=== PATIENT | female | born 1950 | race Caucasian/White ===

== ENCOUNTER 2017-10-11 16:23 | Emergency (ER) | payer MEDICARE, MEDICAID, SELFPAY ==
[2017-10-11 16:23] VITALS: BP 116/50; PULSE 76; RESP 16; TEMP 36.4; O2SAT 98; BMI 34.5
--- NOTE | 2017-10-11 16:30 | EKG12_ITS ---
Test Reason : CP Blood Pressure : / mmHG Vent. Rate : 073 BPM Atrial Rate : 073 BPM P-R Int : 150 ms QRS Dur : 082 ms QT Int : 402 ms P-R-T Axes : 069 037 073 degrees QTc Int : 442 ms Normal sinus rhythm Normal ECG Confirmed by BANG MELVIN, ROSALIA ([id number]), assistant production editor [employer] ([id number]) on 10/12/2017 2:25:44 PM Referred By: Confirmed By:ROSALIA CUENCA MD
--- NOTE | 2017-10-11 16:52 | CT_ITS ---
STUDY: CTA CHEST REASON FOR EXAM: Female, 67 years old. Short of breath and chest pain possible aortic dissection RADIATION DOSAGE (If Supplied By Facility): CTDIvol = ( 12.62 ) mGy, DLP = ( 660.73 ) mGycm TECHNIQUE: The examination was performed with the intravenous administration of 100ML ml of Isovue 300 contrast material. Post-processing of the angiographic images was performed, with multiplanar reformation and 3D reconstruction. Individualized dose optimization techniques were used for this CT. COMPARISON: April 20, 2017 FINDINGS: Suboptimal enhancement of the main pulmonary artery and right and left pulmonary arteries. Normal enhancement of the bilateral peripheral pulmonary arteries. There is no definitive evidence for pulmonary embolus Mild atherosclerotic changes of the aorta without evidence for aneurysm. There is no demonstrated aortic dissection. Normal heart and pericardium. Normal mediastinum. Tiny calcified right hilar nodes. Normal visualized trachea and bronchi. There is calcified granuloma in the right upper lobe. There is subsegmental atelectasis in the left upper lobe Normal pleura. Normal chest wall structures. Dorsal spine demonstrates mild spondylosis Liver is enlarged and fatty infiltrated. There are tiny granulomatous calcifications in the spleen and liver. The subsegmental atelectasis in left upper lobe has increased slightly since prior exam CT/CTA Chest W/WO Contrast IMPRESSION: Mild subsegmental atelectasis in left upper lobe. Old granulomatous disease on the right No evidence for aortic aneurysm or dissection. Limited study of the pulmonary arteries due to suboptimal opacification without definitive evidence for pulmonary embolus Electronically Signed: Marco Chong MD at 17:54 EST , Service support ,
[2017-10-11 16:53] LABS: Absolute Lymphocyte Count 2.44 X10^3/ul (0.83-4.51); Basophil# 0.05 X10^3/uL; Basophil% 0.4 % (0-1); Eosinophil# 0.38 X10^3/uL; Eosinophils% 3.3 % (0-5); Hematocrit 42.6 % (37-47); Lymphocyte # 2.44 X10^3/ul (4.0); Mean Corp Hgb Conc 32.9 g/gl (32-36); Mean Corpuscular Hgb 29.5 pg (27.0-32.0); Mean Corpuscular Volume 89.7 fL (81-99); Mean Platelet Vol. 11.2 fl (6.2-12.0); Monocyte# 0.67 X10^3/uL; Monocyte% 5.8 % (0-10); Neutrophil # 8.04 X10^3/uL (2.7-7.7); Neutrophil % 69.2 % (47-70); Platelet Count 256 K/mm3 (150-450); RBC Distribution Width CV 12.1 % (11.6-14.6); RBC Distribution Width SD 39.2 fl (35.1-43.9); Red Blood Count 4.75 M/mm3 (4.2-5.4); White Blood Count 11.6 K/mm3 (4.4-11.0)
[2017-10-11 16:55] LABS: POSITIVE COUNT NO; POSITIVE DIFFERENTIAL NO; POSITIVE MORPHOLOGY NO
--- NOTE | 2017-10-11 16:59 | ED.VISSUMM ---
- ER Visit Summary Date of Service: 10/11/17 Chief Complaint: Chest pain History of Present Illness: The patient is a [address] 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 Nuno. She reports today while she was making coleslaw, which is atypical activity for her, she began having upper back pain. She reports that she went and laid down in bed and used oxygen and that her pain resolved. However, at the same time she developed right arm pain that was 6 out of 10 at worst and is remained 3 out of 10 since then. She states that she went outside to smoke approximately 2 hours ago developed a substernal chest pain that she described as sharp. It lasted approximately 5 minutes. It was 5 out of 10 at worst. She is pain-free currently. It was worsened by nothing and relieved by nothing. She reports that she was very short of breath during this episode. She denies any nausea, vomiting, or diaphoresis. States that she has never had anything like this before. Physical Examination: Vitals: Stable. Afebrile. General: Well-nourished and well-developed. Head: Normocephalic atraumatic. Neck: Supple, no lymphadenopathy. No JVD. Nontender. Cardiovascular: Regular rate and rhythm. No murmurs. Respiratory: No respiratory distress. Clear to auscultation bilaterally. Greatly decreased air movement. She has mild tenderness palpation over her sternum that does not reproduce her pain. Abdominal: Soft, moderate epigastric tenderness to palpation, nondistended, normal bowel sounds. No guarding, rebound, or peritoneal signs. Back: Nontender. Extremities: Nontender, no edema. 2+ radial pulse bilaterally. Skin: Normal color, no rash. Neurologic: Alert and oriented ?3. Cranial nerves II through XII are intact. Normal strength and sensation. NIH scale is 0. Psych: Normal affect. Test Results: EKG is sinus at 73 with no acute changes. CT chest shows no dissection. Troponin is less than 0.02. CBC is more for white count 11.6. Chem-7 more for sodium 131 and glucose 379. Emergency Department Course and Treatment: Patient refused pain medications. Patient has had great relief of her pain after albuterol and Atrovent. She refused pain medications and steroids. States that this is similar to COPD exacerbations in the past. She would like to go home. Treatment Plan: Patient will be discharged with Zithromax. She is refused steroids at home. She does report that she has insulin at home to treat her high blood sugar. She is currently drinking a 32 ounce Coke from [employer]. She is instructed to return to the emergency department for any worsening symptoms. Follow-up her primary care physician in 3-5 days for another exam. Disposition: To home in improved and stable condition. Impression: 1. COPD exacerbation. 2. Atypical chest pain. 3. Type 2 diabetes mellitus. 4. Hyperglycemia. This note was generated with [employer] dictation software. It may contain incorrect words, spelling, and punctuation that were not noted in review of the chart prior to signing ED Disposition - Plan for ED Patient: Disposition: Home or Assisted Living Chief Complaint: Chest Pain Instructions: ED COPD Flare Prescriptions: Azithromycin [Zithromax] 250 mg PO DAILY #6 tablet Referrals: Mike Richard MD [Primary Care Provider] - 1-2 Days if not improving
[2017-10-11 17:04] LABS: Anion Gap 6 (5-15); BUN 7 mg/dL (7-18); BUN/Creat Ratio 8.2 RATIO (10-20); Calcium,Total 9.1 mg/dL (8.5-10.1); Chloride 95 mmol/L (98-107); Creatinine, Serum 0.85 mg/dL (0.55-1.02); EST Glomerular Filtration Rate 71 mL/min (>60); Est Glom Filt Rate - Afr Amer 86 mL/min (>60); Estimated Creatinine Clearance 51.49 ml/min; Glucose 379 mg/dL (74-106); Potassium 3.8 mmol/L (3.5-5.1); Sodium Level 131 mmol/L (136-145)
[2017-10-11] MEDS: Ipratropium/Albuterol Sulfate 3 ML AMPUL.NEB INHALATION (17:11)
[2017-10-11] MEDS: 0.9% Normal Saline 1,000 ML 999 ML IV (17:11)
[2017-10-11 17:29] VITALS: PULSE 72; RESP 24; O2SAT 99
[2017-10-11 17:35] VITALS: BP 145/70; PULSE 75; RESP 14; O2SAT 98
[2017-10-11] MEDS: Azithromycin 250 MG Tablet 500 MG PO (18:32)
[2017-10-11 18:38] VITALS: BP 147/89; PULSE 81; RESP 17; O2SAT 95
== END 2017-10-11 18:38 | disposition home or self-care (01) ==
PROVIDERS: Emergency Provider Emergency Medicine; Family Provider Family Medicine; PCP Family Medicine
DX: J44.1 Chronic obstructive pulmonary disease with (acute) exacerbation (principal); R07.89 Other chest pain; E11.65 Type 2 diabetes mellitus with hyperglycemia; F17.200 Nicotine dependence, unspecified, uncomplicated; Z91.11 Patient's noncompliance with dietary regimen; Z79.4 Long term (current) use of insulin; Z79.899 Other long term (current) drug therapy
CPT/HCPCS: 71275; 80048; 84484; 85025; 93005; 94640; 99285; J7030; Q9967; A4216

== ENCOUNTER → 2018-03-31 16:26 | Outpatient (CLI) | payer MEDICARE, SELFPAY | PROVIDERS: Family Provider Family Medicine; PCP Family Medicine; Visit Provider Family Medicine | DX: R06.00 Dyspnea, unspecified (principal) | CPT/HCPCS: 71046 ==

== ENCOUNTER 2018-05-06 22:52 | Emergency (ER) | payer MEDICARE, SELFPAY ==
[2018-05-06 22:57] VITALS: BP 144/72; PULSE 82; RESP 16; TEMP 36.8; O2SAT 97; BMI 38.6
--- NOTE | 2018-05-06 23:12 | EKG12_ITS ---
Test Reason : CP Blood Pressure : / mmHG Vent. Rate : 081 BPM Atrial Rate : 081 BPM P-R Int : 150 ms QRS Dur : 076 ms QT Int : 384 ms P-R-T Axes : 064 031 056 degrees QTc Int : 446 ms Sinus rhythm with occasional Premature ventricular complexes Low voltage QRS Borderline ECG Confirmed by RAMIREZ MELVIN, ARPITA ([id number]), editor managing newspaper [employer] ST[employer]WORTH ([id number]) on 05/09/2018 3:05:27 PM Referred By: JAZMÍN Confirmed By:ARPITA GUZMÁN MD
--- NOTE | 2018-05-06 23:12 | RAD_ITS ---
STUDY: X-RAY CHEST REASON FOR EXAM: Female, 67 years old. Chest pain TECHNIQUE: Single AP portable view of the chest. COMPARISON: 03.31.18 FINDINGS: The lungs are clear and expanded. There is no demonstrated pleural abnormality. Normal size heart. Normal mediastinum and wallace. Normal visualized pulmonary arteries. There is atherosclerotic tortuosity of the aortic arch and descending thoracic aorta. There are diffuse degenerative changes of the visualized thoracic spine. There is degenerative osteoarthritis of the bilateral shoulders. There is no demonstrated abnormality of the visualized soft tissue structures of the upper abdomen. RAD/Chest 1 View (Portable) IMPRESSION: There are no acute findings. Electronically Signed: Andrew Wheeler MD at 23:34 EDT , Service support ,
--- NOTE | 2018-05-06 23:14 | ED.DCSUM_ITS ---
- ER Visit Summary Date of Service: 05/06/18 Chief Complaint: Chest pain History of Present Illness: The patient is a 67 F recurrent chest pressure after supper 7 PM. Pain down left arm. Dyspnea. No nausea or diaphoresis. Has had intermittent symptoms for 3 days. Symptoms resolved prior to arrival by EMS. However states was given aspirin 324 mg along with one nitro which helped her symptoms. History of diabetes and tobacco. Denies hypertension or hypercholesterolemia but denies family history of MIs at a young age. Stress test was years ago. No history of heart cath. History of COPD 3 L oxygen at night. No recent illness. Currently symptoms resolved. Physical Examination: General: Alert and oriented ?3, no acute distress HEENT: Normocephalic, atraumatic. Moist mucosa membranes Neck: supple, nontender. Cardiovascular: Regular rate and rhythm, no murmurs Respiratory: Normal breath sounds, symmetric, no distress Abdomen: Soft, nontender, nondistended Extremities: Nontender, no edema, pulses intact ?4 Neuro: no focal neurological deficits. Test Results: EKG: Sinus rate of 81, no ST or T wave changes. PVC noted. White count 14. Chemistries normal. Troponin negative. Chest x-ray negative. Emergency Department Course and Treatment: Patient presents with chest pain, symptoms currently resolved. Workup negative, white count 14. Denies rash or urinary symptoms. Heart scores of 4. Discussed with patient initially with her risk factors for planned admission for further workup. However on reevaluation she remained symptom-free. She then states she would like to go home. Discussed risk including cardiac event and with the possibility. Patient understands. She is alert and oriented x3. Patient signed out AGAINST MEDICAL ADVICE. Discussed her return if any worsening symptoms otherwise follow-up with her PCP. Treatment Plan: [] Disposition: Discharge AMA Impression: 1. Acute chest pain This note was generated with [employer] dictation software. It may contain incorrect words, spelling, and punctuation that were not noted in review of the chart prior to signing ED Disposition - Plan for ED Patient: Disposition: Home or Assisted Living Chief Complaint: Chest Pain Diagnosis: Chest pain Instructions: ED Chest Pain Atypical Unkn Cause Referrals: Mike Richard MD [Primary Care Provider] - 1 Day Additional Instructions: You are recommended to stay in the hospital for further workup. He decided to sign out AGAINST MEDICAL ADVICE. Return if any worsening symptoms. Otherwise follow-up with your doctor.
[2018-05-06 23:28] VITALS: O2SAT 97
[2018-05-06 23:43] LABS: Absolute Lymphocyte Count 2.65 X10^3/ul (0.83-4.51); Absolute Neutrophil Count 10.9 X10^3/uL (2.0-7.7); Basophil# 0.08 X10^3/uL; Basophil% 0.5 % (0-1); Eosinophil# 0.31 X10^3/uL; Eosinophils% 2.1 % (0-5); Hematocrit 39.3 % (37-47); Hemoglobin 13.3 g/dl (12.0-15.0); Lymphocyte # 2.65 X10^3/ul (4.0); Mean Corp Hgb Conc 33.8 g/gl (32-36); Mean Corpuscular Hgb 29.8 pg (27.0-32.0); Mean Corpuscular Volume 87.9 fL (81-99); Monocyte# 0.76 X10^3/uL; Monocyte% 5.2 % (0-10); Neutrophil # 10.89 X10^3/uL (2.7-7.7); Neutrophil % 73.9 % (47-70); POSITIVE COUNT NO; POSITIVE DIFFERENTIAL NO; POSITIVE MORPHOLOGY NO; Platelet Count 259 K/mm3 (150-450); RBC Distribution Width CV 12.1 % (11.6-14.6); RBC Distribution Width SD 38.5 fl (35.1-43.9); Red Blood Count 4.47 M/mm3 (4.2-5.4); White Blood Count 14.7 K/mm3 (4.4-11.0)
[2018-05-06 23:59] LABS: Anion Gap 9 (5-15); BUN 6 mg/dL (7-18); BUN/Creat Ratio 5.6 RATIO (10-20); Calcium,Total 8.9 mg/dL (8.5-10.1); Chloride 96 mmol/L (98-107); Creatinine, Serum 1.07 mg/dL (0.55-1.02); EST Glomerular Filtration Rate 54 mL/min (>60); Est Glom Filt Rate - Afr Amer 66 mL/min (>60); Glucose 358 mg/dL (74-106); Potassium 3.8 mmol/L (3.5-5.1); Sodium Level 134 mmol/L (136-145)
[2018-05-07 00:28] VITALS: BP 140/97; PULSE 79; RESP 16; O2SAT 97
[2018-05-07 00:32] VITALS: BP 140/67; PULSE 73; RESP 16; O2SAT 97
== END 2018-05-07 00:39 | disposition left against medical advice (07) ==
PROVIDERS: Emergency Provider Emergency Medicine; Family Provider Family Medicine; PCP Family Medicine
DX: R07.9 Chest pain, unspecified (principal); E11.9 Type 2 diabetes mellitus without complications; J44.9 Chronic obstructive pulmonary disease, unspecified; K21.9 Gastro-esophageal reflux disease without esophagitis; K22.70 Barrett's esophagus without dysplasia; F32.9 Major depressive disorder, single episode, unspecified; F41.9 Anxiety disorder, unspecified; Z79.4 Long term (current) use of insulin; Z99.81 Dependence on supplemental oxygen; Z79.899 Other long term (current) drug therapy; Z53.21 Procedure and treatment not carried out due to patient leaving prior to being seen by health care provider
CPT/HCPCS: 71045; 80048; 84484; 85025; 93005; 99285; J7030; A4216

== ENCOUNTER → 2018-08-16 11:36 | Outpatient (CLI) | payer MEDICARE, SELFPAY ==
--- NOTE | 2018-08-16 11:37 | RAD_ITS ---
STUDY: X-RAY CHEST REASON FOR EXAM: Female, 68 years old. COPD exacerbation. TECHNIQUE: PA and lateral views of the chest. COMPARISON: Comparison is made with prior study dated May 06, 2018. FINDINGS: There is blunting of the right cost phrenic angle with lingular infiltrate. There is a shift of the heart and mediastinum towards the left side of the midline. Normal size heart. Normal mediastinum and wallace. Normal visualized pulmonary arteries. Normal visualized aortic arch and descending thoracic aorta. There are degenerative changes of the visualized thoracic spine. Normal visualized ribs, clavicles, and shoulders. There is no demonstrated abnormality of the visualized soft tissue structures of the upper abdomen. RAD/Chest PA and Lateral IMPRESSION: Blunting of the left gastric angle with underlying infiltration and/or atelectasis. Electronically Signed: Bruce Lubin MD at 12:27 EST Tel [phone], Service support ,
== END ==
PROVIDERS: Family Provider Family Medicine; PCP Family Medicine; Referring Provider Family Medicine; Visit Provider Family Medicine
DX: J44.1 Chronic obstructive pulmonary disease with (acute) exacerbation (principal)
CPT/HCPCS: 71046

== ENCOUNTER → 2018-09-15 17:00 | Outpatient (CLI) | payer MEDICARE, SELFPAY ==
--- NOTE | 2018-09-15 17:05 | RAD_ITS ---
STUDY: X-RAY - LEFT TIBIA AND FIBULA REASON FOR EXAM: Female, 68 years old. Fall, left leg pain TECHNIQUE: 3 view(s) of the tibia and fibula were obtained. COMPARISON: None. FINDINGS: Normal visualized tibia. Normal visualized fibula. Localized soft tissue swelling of the anterior lower leg just below the level of the insertion of the patellar tendon. RAD/Tibia & Fibula 2 Views IMPRESSION: 1. Proximal lower leg (anterior) soft tissue swelling/hematoma. No underlying fracture. Electronically Signed: Yaakov English MD at 21:16 EST , Service support ,
== END ==
PROVIDERS: Family Provider Family Medicine; PCP Family Medicine; Referring Provider Family Medicine; Visit Provider Family Medicine
DX: M79.605 Pain in left leg (principal)
CPT/HCPCS: 73590

== ENCOUNTER 2018-09-17 20:11 | Emergency (ER) | payer MEDICARE, SELFPAY ==
[2018-09-17 20:11] VITALS: BP 209/104; PULSE 81; RESP 16; TEMP 36.6; O2SAT 98; BMI 35.4
--- NOTE | 2018-09-17 20:18 | RAD_ITS ---
STUDY: X-RAY - LEFT KNEE REASON FOR EXAM: Female, 68 years old. Right-sided knee pain after falling 2 days ago. TECHNIQUE: 3 view(s) of the knee. COMPARISON: Radiographs of the right leg dated September 15, 2018. FINDINGS: Normal visualized distal femur. Normal visualized proximal tibia and fibula. Normal proximal tibiofibular articulation. There is no demonstrated fracture. Normal medial femorotibial compartment. Normal lateral femorotibial compartment. There is mild degenerative arthrosis of the patellofemoral articulation. There is no demonstrated joint effusion. The soft tissue structures are unremarkable. RAD/Knee 3 Views IMPRESSION: 1. No radiographic evidence for acute fracture. 2. Mild degenerative arthropathy. Electronically Signed: Lala Richard MD at 21:49 EST , Service support ,
[2018-09-17] MEDS: Acetaminophen 325 MG Tablet 650 MG PO (20:28)
--- NOTE | 2018-09-17 21:20 | ED.VISSUMM ---
- ER Visit Summary Date of Service: 09/17/18 Chief Complaint: Left knee injury History of Present Illness: The patient is a 68 F who injured her left knee 3 days ago. She fell directly onto the knee. She saw her PCP and had an x-ray which showed just a hematoma with no fractures. She has continued to have pain. The pain is worse with movement. She has been ambulatory but the pain is worse with ambulating. She denies any previous surgeries to this area. She has been trying ibuprofen for pain. Physical Examination: Vital signs are reviewed. HEENT exam is unremarkable. Left knee exam reveals tenderness in the inferior portion of the knee. This is near the tibial plateau area. There is a hematoma noted. She has full range of motion with pain. Test Results: Right knee x-ray reveals chronic changes with no fractures. Patient was reassured. She will add Tylenol to her regimen. I will place an Andrea wrap on the knee. She will use ice and will follow up with her PCP Emergency Department Course and Treatment: [] Treatment Plan: [] Disposition: Discharge Impression: Left knee contusion This note was generated with [employer] dictation software. It may contain incorrect words, spelling, and punctuation that were not noted in review of the chart prior to signing ED Disposition - Plan for ED Patient: Referrals: Mike Richard MD [Primary Care Provider] -
[2018-09-17 21:22] VITALS: BP 159/72; PULSE 67; RESP 17; O2SAT 99
--- NOTE | 2018-09-17 21:34 | ED.DEP ---
ED Disposition - Plan for ED Patient: Disposition: Home or Assisted Living Instructions: ED Contusion Lower Ext Referrals: Mike Richard MD [Primary Care Provider] -
--- NOTE | 2018-09-17 21:46 | ED.RN ---
DISCHARGE INSTRUCTIONS GIVEN TO AND REVIEWED WITH PATIENT, PATIENT DENIES QUESTIONS OR CONCERNS AND VOICES UNDERSTANDING OF DISCHARGE INSTRUCTIONS. PT AMBULATES OUT OF ROOM WITHOUT DIFFICULTY.
== END 2018-09-17 21:47 | disposition home or self-care (01) ==
PROVIDERS: Emergency Provider Emergency Medicine; Family Provider Family Medicine; PCP Family Medicine
DX: S80.02XA Contusion of left knee, initial encounter (principal); W19.XXXA Unspecified fall, initial encounter; Y93.9 Activity, unspecified; Y92.9 Unspecified place or not applicable; J44.9 Chronic obstructive pulmonary disease, unspecified; G71.00 Muscular dystrophy, unspecified; Z79.4 Long term (current) use of insulin; Z79.899 Other long term (current) drug therapy; Z72.0 Tobacco use
CPT/HCPCS: 73562; 99282

== ENCOUNTER 2018-11-17 16:01 | Emergency (ER) | payer MEDICARE, SELFPAY ==
[2018-11-17 16:02] VITALS: BP 183/57; PULSE 74; RESP 28; TEMP 36.6; O2SAT 98; BMI 35.2
--- NOTE | 2018-11-17 16:07 | EKG12_ITS ---
Test Reason : SOB Blood Pressure : / mmHG Vent. Rate : 066 BPM Atrial Rate : 066 BPM P-R Int : 148 ms QRS Dur : 080 ms QT Int : 408 ms P-R-T Axes : -15 023 050 degrees QTc Int : 427 ms Normal sinus rhythm Normal ECG Confirmed by BENJAMIN EDGAR ([id number]), editor magazine CHEPE STALLWORTH ([id number]) on 11/21/2018 4:53:27 PM Referred By: DANIELA Confirmed By:BENJAMIN EDGAR
--- NOTE | 2018-11-17 16:08 | ED.VISSUMM ---
- ER Visit Summary Date of Service: 11/17/18 Chief Complaint: Shortness of breath History of Present Illness: The patient is a 68 F with history of COPD who is on 2-4 L of oxygen at night presents to the emergency department shortness of breath. Patient states she is been sick for the past 10 days. She did see her primary care in the office on Wednesday. She was started on steroids and oral antibiotics. She states she feels like she is not getting better. She been using nebulized treatments every 4 hours. She has exertional dyspnea. She is also felt weak. She is unsure if he had fever but then she had chills. She denies any chest pain. She denies orthopnea. She denies pain with taking a deep breath. She does continue to smoke. Physical Examination: Vital signs reviewed General: Well-nourished, well-developed Head: Normocephalic, atraumatic Eyes: Pupils equal and reactive, extraocular muscles intact Neck, supple, no lymphadenopathy Heart: Regular rate and rhythm Respiratory: No distress, scant wheeze with diminished air movement Abdomen: Soft, nontender, nondistended, no peritoneal signs Back: Nontender Extremities: Nontender, no edema, no cords Skin: Normal color no rash Neuro: Alert and oriented, no focal or lateralizing deficits Test Results: [] Emergency Department Course and Treatment: [The patient did have mild tachypnea and scant wheezing. IV was established. She was given Solu-Medrol and nebulized breathing treatments. X-ray shows no focal infiltrate or process. EKG was sinus rhythm without acute ischemia. Cardiac enzymes are normal. On reevaluation, the patient is resting comfortably. She had resolution of her tachypnea. She states she feels markedly improved. At this time, I do feel that she is safe to continue her outpatient therapy. She is comfortable with this plan of care and will be discharged home. Treatment Plan: [] Disposition: Discharge Impression: 1. COPD exacerbation This note was generated with [employer] dictation software. It may contain incorrect words, spelling, and punctuation that were not noted in review of the chart prior to signing ED Disposition - Plan for ED Patient: Disposition: Home or Assisted Living Instructions: ED Upper Resp Infec Abx Tx Referrals: Mike Richard MD [Primary Care Provider] -
[2018-11-17 16:15] VITALS: O2SAT 97
[2018-11-17 16:16] VITALS: PULSE 71; RESP 32; O2SAT 97
[2018-11-17] MEDS: Albuterol 2.5 MG/3 ML VIAL.NEB. INHALATION ×2 (16:17)
[2018-11-17] MEDS: Ipratropium/Albuterol Sulfate 3 ML AMPUL.NEB INHALATION (16:17)
[2018-11-17] MEDS: MethylPREDNISolone 125 MG/2 ML Vial IV (16:17)
[2018-11-17] MEDS: 0.9% Normal Saline 1,000 ML 150 ML IV (16:19)
[2018-11-17 16:26] LABS: Absolute Lymphocyte Count 2.32 X10^3/ul (0.83-4.51); Absolute Neutrophil Count 7.4 X10^3/uL (2.0-7.7); Basophil# 0.07 X10^3/uL; Basophil% 0.7 % (0-1); Eosinophil# 0.29 X10^3/uL; Eosinophils% 2.7 % (0-5); Hematocrit 42.1 % (37-47); Hemoglobin 14.1 g/dl (12.0-15.0); Lymphocyte # 2.32 X10^3/ul (4.0); Lymphocyte % 21.8 % (19-41); Mean Corp Hgb Conc 33.5 g/gl (32-36); Mean Corpuscular Hgb 28.9 pg (27.0-32.0); Mean Corpuscular Volume 86.3 fL (81-99); Monocyte# 0.55 X10^3/uL; Monocyte% 5.2 % (0-10); Neutrophil # 7.38 X10^3/uL (2.7-7.7); Neutrophil % 69.3 % (47-70); Platelet Count 302 K/mm3 (150-450); RBC Distribution Width CV 12.2 % (11.6-14.6); RBC Distribution Width SD 37.7 fl (35.1-43.9); Red Blood Count 4.88 M/mm3 (4.2-5.4); White Blood Count 10.6 K/mm3 (4.4-11.0)
[2018-11-17 16:31] LABS: POSITIVE COUNT NO; POSITIVE DIFFERENTIAL NO; POSITIVE MORPHOLOGY NO
--- NOTE | 2018-11-17 16:48 | RAD_ITS ---
STUDY: X-RAY CHEST REASON FOR EXAM: Female, 68 years old. Cough, shortness of breath TECHNIQUE: PA and lateral views of the chest. COMPARISON: Prior study of 08/16/2018 FINDINGS: There are streaky densities of the left lingula appearing similar to the previous study. There is no demonstrated pleural abnormality. Normal size heart. Normal mediastinum and wallace. Normal visualized pulmonary arteries. There are calcified plaques of the aortic arch. Normal visualized thoracic spine. Normal visualized ribs, clavicles, and shoulders. There is no demonstrated abnormality of the visualized soft tissue structures of the upper abdomen. RAD/Chest PA and Lateral IMPRESSION: Streaky atelectatic or fibrotic changes of the left lingular appearing similar to the previous study. Calcified plaques of the aortic arch. Electronically Signed: Bharath Taylor MD at 16:57 EDT , Service support ,
[2018-11-17 17:01] VITALS: PULSE 73; RESP 28
[2018-11-17 17:16] LABS: Anion Gap 9 (5-15); BUN 6 mg/dL (7-18); BUN/Creat Ratio 6.4 RATIO (10-20); Calcium,Total 8.9 mg/dL (8.5-10.1); Chloride 96 mmol/L (98-107); Creatinine, Serum 0.93 mg/dL (0.55-1.02); EST Glomerular Filtration Rate 64 mL/min (>60); Est Glom Filt Rate - Afr Amer 77 mL/min (>60); Estimated Creatinine Clearance 46.43 ml/min; Glucose 249 mg/dL (74-106); Potassium 3.7 mmol/L (3.5-5.1); Sodium Level 135 mmol/L (136-145)
[2018-11-17 17:37] VITALS: BP 156/56; PULSE 72; RESP 18; O2SAT 95
== END 2018-11-17 17:39 | disposition home or self-care (01) ==
LOC: ED 17:14
PROVIDERS: Emergency Provider Emergency Medicine; Family Provider Family Medicine; PCP Family Medicine
DX: J44.1 Chronic obstructive pulmonary disease with (acute) exacerbation (principal); Z99.81 Dependence on supplemental oxygen; E11.9 Type 2 diabetes mellitus without complications; I10 Essential (primary) hypertension; Z72.0 Tobacco use
CPT/HCPCS: 71046; 80048; 84484; 85025; 93005; 94640; 96361; 96374; 99284; A4216

== ENCOUNTER 2018-12-27 16:29 | Inpatient (IN) | payer MEDICARE, SELFPAY ==
[2018-12-27] VITALS (9 sets, daily range): BP systolic 123–157; BP diastolic 58–79; PULSE 67–87; RESP 18–36; TEMP 36.6–36.7; O2SAT 96–98; BMI 36.3; BMI 35.0
--- NOTE | 2018-12-27 16:37 | EKG12_ITS ---
Test Reason : CP Blood Pressure : / mmHG Vent. Rate : 076 BPM Atrial Rate : 076 BPM P-R Int : 160 ms QRS Dur : 080 ms QT Int : 400 ms P-R-T Axes : 070 028 053 degrees QTc Int : 450 ms Normal sinus rhythm Normal ECG Confirmed by BENJAMIN EDGAR ([id number]), book or script editor JAVIER COLBY ([id number]) on 01/05/2019 9:32:58 AM Referred By: SONNY Confirmed By:BENJAMIN EDGAR
--- NOTE | 2018-12-27 16:41 | ED.VISSUMM ---
- ER Visit Summary Date of Service: 12/27/18 Chief Complaint: Chest pain, shortness of breath History of Present Illness: The patient is a 68 F presenting with chest pain, shortness of breath. She states this started 2 days ago and has been intermittent. She has dyspnea on exertion. She has intermittent jaw pain associated with diaphoresis. Chest pain and shortness of breath worsen with exertion and walking upstairs. She has a history of COPD, diabetes, muscular dystrophy. Her brother had a heart attack at age 54. She is a smoker. Denies PE/DVT risk factors. Physical Examination: Vitals are stable. Patient is afebrile. Alert no acute distress. HEENT exam is unremarkable. Neck is supple. Lungs are wheezing bilaterally. Heart is regular rate and rhythm. Abdomen is soft mild epigastric tenderness with no rebound or guarding. Extremities are unremarkable. Skin is warm and dry. No focal neurologic deficit. Remainder of exam is unremarkable. Emergency Department Course and Treatment: She was given aspirin, albuterol, Atrovent aerosols. EKG is sinus rate of 76 with no acute ischemic changes. Chest x-ray shows stable lingular scarring without acute abnormality or interval change. CBC shows white count 11.4. Chemistries show sodium 128, glucose 376. Lipase is normal. Troponin is negative. On reevaluation she is chest pain-free. Discussed with the hospitalist for observation. Disposition: Observation Impression: Chest pain This note was generated with [employer] dictation software. It may contain incorrect words, spelling, and punctuation that were not noted in review of the chart prior to signing ED Disposition - Plan for ED Patient: Referrals: Mike Richard MD [Primary Care Provider] -
[2018-12-27] MEDS: Aspirin 81 MG TAB.CHEW 324 MG PO (16:45)
[2018-12-27] MEDS: Ipratropium/Albuterol Sulfate 3 ML AMPUL.NEB INHALATION (16:45)
--- NOTE | 2018-12-27 16:46 | RAD_ITS ---
STUDY: X-RAY CHEST REASON FOR EXAM: Female, 68 years old. Chest pain. TECHNIQUE: Single AP portable view of the chest. COMPARISON: November 17, 2018. FINDINGS: Telemetry wires overlie the chest. The lungs are well-expanded. There is stable scarring in the region of the lingula. There is no new infiltrate or mass. There is no demonstrated pleural abnormality. Normal size heart. Normal mediastinum and wallace. Normal visualized pulmonary arteries. Normal visualized aortic arch and descending thoracic aorta. There are diffuse degenerative changes of the visualized thoracic spine. Normal visualized ribs, clavicles, and shoulders. There is no demonstrated abnormality of the visualized soft tissue structures of the upper abdomen. RAD/Chest 1 View (Portable) IMPRESSION: Stable lingular scarring without acute abnormality or interval change. Electronically Signed: Tanmay Johnson DO at 16:59 EDT Tel [phone], Service support ,
[2018-12-27 17:17] LABS: Absolute Lymphocyte Count 2.15 X10^3/ul (0.83-4.51); Absolute Neutrophil Count 8.4 X10^3/uL (2.0-7.7); Basophil# 0.05 X10^3/uL; Basophil% 0.4 % (0-1); Eosinophil# 0.17 X10^3/uL; Eosinophils% 1.5 % (0-5); Hematocrit 38.7 % (37-47); Hemoglobin 13.1 g/dl (12.0-15.0); Lymphocyte # 2.15 X10^3/ul (4.0); Lymphocyte % 18.9 % (19-41); Mean Corp Hgb Conc 33.9 g/gl (32-36); Mean Corpuscular Hgb 28.8 pg (27.0-32.0); Mean Corpuscular Volume 85.1 fL (81-99); Mean Platelet Vol. 11.1 fl (6.2-12.0); Monocyte# 0.56 X10^3/uL; Monocyte% 4.9 % (0-10); Neutrophil # 8.44 X10^3/uL (2.7-7.7); Platelet Count 281 K/mm3 (150-450); Red Blood Count 4.55 M/mm3 (4.2-5.4); White Blood Count 11.4 K/mm3 (4.4-11.0)
[2018-12-27 17:22] LABS: Differential Indicated SCAN CRITERIA MET; POSITIVE COUNT NO; POSITIVE DIFFERENTIAL NO; POSITIVE MORPHOLOGY YES
[2018-12-27 17:34] LABS: Anion Gap 6 (5-15); BUN 6 mg/dL (7-18); BUN/Creat Ratio 6.7 RATIO (10-20); Calcium,Total 8.7 mg/dL (8.5-10.1); Chloride 93 mmol/L (98-107); EST Glomerular Filtration Rate 66 mL/min (>60); Est Glom Filt Rate - Afr Amer 80 mL/min (>60); Estimated Creatinine Clearance 47.97 ml/min; Glucose 376 mg/dL (74-106); Lipase 79 U/L (73-393); Potassium 4.1 mmol/L (3.5-5.1); Sodium Level 128 mmol/L (136-145)
--- NOTE | 2018-12-27 17:49 | HP.PCM_ITS ---
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 (3) Hyponatremia Status: Chronic (4) Postprandial bloating Status: Chronic (5) Anxiety Status: Chronic (6) COPD (chronic obstructive pulmonary disease) Status: Chronic (7) Chronic respiratory failure Status: Chronic Comment: On home oxygen (8) Depression Status: Chronic (9) Hypothyroidism Status: Chronic (10) Muscular dystrophy Status: Chronic (11) Smoking Status: Chronic (12) Chest pain Status: Acute History of Present Illness Date of Admission: 12/27/18 Chief Complaint: Chest pain The patient is a 68 year old F with past medical history significant for hypertension diabetes mellitus type 2 tobacco dependence who presented with chest pain. Patient states pain started 2 days prior to her admission pain was located on the left upper chest radiating to her left jaw. In view of the persistent nature of her symptoms she presented to the emergency department. In the ED initial set of cardiac enzymes and EKG came back unremarkable admitted to a monitored bed for subsequent management. Past Medical History Past Medical History (Chronic Problems): Chronic Problems Smoking (Chronic) Chronic respiratory failure (Chronic) On home oxygen Muscular dystrophy (Chronic) Hyponatremia (Chronic) Acute exacerbation of chronic obstructive pulmonary disease (COPD) (Chronic) Hypothyroidism (Chronic) COPD (chronic obstructive pulmonary disease) (Chronic) Depression (Chronic) De La Vega esophagus (Chronic) Postprandial bloating (Chronic) Anxiety (Chronic) Allergies amoxicillin [Amoxicillin] Allergy (Intermediate, Verified 12/27/18 16:39) Rash gabapentin [From Neurontin] Allergy (Verified 12/27/18 16:39) Shortness of breath levofloxacin [From Levaquin] Allergy (Verified 12/27/18 16:39) Hives is allergic to the red dye in the pill form, states she is fine with the iv form. pseudoephedrine HCl [From Sudafed] Allergy (Verified 12/27/18 16:39) Shortness of breath codeine Adverse Reaction (Verified 12/27/18 16:39) HEADACHE Home Medications: Ambulatory Orders Medication Instructions Recorded Docusate Sodium [Colace] 100 mg PO BID 05/23/13 Risperidone [Risperdal] 1 mg PO QHS 05/23/13 Citalopram [Celexa] 40 mg PO QHS 07/04/14 Ipratropium/Albuterol Sulfate 3 ml INHALATION TID PRN PRN 08/24/16 [Duoneb] ALPRAZolam [Xanax] 1 mg PO TID PRN PRN 08/25/16 Insulin Glargine,Hum.rec.anlog 32 unit SQ QHS 08/25/16 [Lantus] Insulin Lispro [Humalog] 0 - 200 units SQ TIDCM 08/25/16 Omeprazole [Prilosec] 20 mg PO DAILY 12/27/18 Surgical History: cholecystectomy Psychiatric History: Anxiety, Depression 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 Denies: Orthopnea, Palpitations, Paroxysmal Noc. Dyspnea Respiratory: Denies: Cough, Shortness of breath at rest, Shortness of breath upon exertion, Sputum production Gastrointestinal: Denies: Abdominal Pain, Hematemesis, Hematochezia, Nausea, Melena, Vomiting Genitourinary: Denies: Dysuria, Frequency, Hematuria, Urgency Musculoskeletal: Denies: Joint Pain, Joint Tenderness Skin: Denies: Rash Neurological: Denies: Focal weakness, Numbness, Tingling Psychiatric: Denies: Homicidal Ideations, Suicidal Ideations Hematologic/ Lymphatic: Denies: Easy Bruising, Easy Bleeding VTE Information - Inpt Only VTE Present on Admission: No VTE Mechan Device Prophylaxis: Knee High HUSSEIN Hose VTE Pharm Prophylaxis ordered?: Yes Patient Problems: Active and Suspected Problems Chest pain (Acute) Objective: GENERAL: cooperative HEENT: Atraumatic; moist oral mucosa EYES; Anicteric, Normal Conjunctiva NECK; supple, normal thyroid, no distended JVD. RESPIRATORY: Diminished to auscultation bilaterally, CARDIOVASCULAR: Regular S1 S2, no audible murmurs GI: soft, non-tender, normoactive bowel sounds, : No Renal angle tenderness; EXTREMITIES: No edema, no clubbing, no cyanosis. MUSCULOSKELETAL: No Joint Tenderness; no muscle waisting NEURO: Awake; no lateralizing signs. SKIN: No Rash PSYCH; Normal affect - Physical Exam Vital Signs Temp Pulse Resp BP Pulse Ox 97.8 F 78 24 H 157/79 H 98 12/27/18 16:32 12/27/18 16:55 12/27/18 16:55 12/27/18 16:32 12/27/18 16:32 Oxygen Delivery Method Room Air Weight: 90.3 kg Body Mass Index (BMI) 36.3 Laboratory Tests Past 24 Hrs 12/27/18 12/27/18 16:55 16:55 WBC 11.4 H RBC 4.55 Hgb 13.1 Hct 38.7 MCV 85.1 MCH 28.8 MCHC 33.9 RDW 12.0 RDW Differential 36.0 Plt Count 281 MPV 11.1 Immature Gran % (Auto) 0.300 Neut % (Auto) 74.0 H Lymph % (Auto) 18.9 L Garvin % (Auto) 4.9 Eos % (Auto) 1.5 Baso % (Auto) 0.4 Absolute Neuts (auto) 8.4 H Absolute Lymphs (auto) 2.15 Total Counted Pending Sodium 128 L Potassium 4.1 Chloride 93 L Carbon Dioxide 29.0 Anion Gap 6 BUN 6 L Creatinine 0.90 Estim Creat Clear Calc 47.97 Est GFR (MDRD) Af Amer 80 Est GFR (MDRD) Non-Af 66 BUN/Creatinine Ratio 6.7 L Glucose 376 H Calcium 8.7 Troponin I < 0.015 Lipase 79 Assessment/Plan All Active Problems Chest pain (Acute) Patient is a 68-year-old lady presented with chest pain 1. Chest Pain: Placed on a monitored bed; rule out for Myocardial infarction with serial cardiac enzymes and EKGs. If negative, rule out Myocardial Ischemia with nuclear medicine stress test. 2. Diabetes mellitus type 2 uncontrolled with hyperglycemia did continue with home meds. Patient was also placed on Accu-Cheks before meals and at bedtime with sliding scale coverage 3. Hypertension-blood pressure controlled, 4. Muscular dystrophy 5. Depression with anxiety 6. Tobacco dependence counseled on cessation, offered nicotine patch for tobacco cravings 7. Obesity with BMI of 35 weight loss advised 8. DVT prophylaxis SC Lovenox Code Visit OBSV E&M: 35431 Initial observation care L3
[2018-12-27 18:06] LABS: Platelet Estimate ADEQUATE (ADEQ); Red Cell Morphology NORM C+C NORMAL (NORM C&C)
--- NOTE | 2018-12-27 18:23 | ECHOCS_ITS ---
Reason For Study: Chest pain Procedure This was a 2D Doppler, Color Flow transthoracic echocardiogram. Exam performed portable in patient room. Left Ventricle Mild concentric left ventricular hypertrophy. The estimated ejection fraction is 65 %. Stage 1 diastolic dysfunction. No regional wall motion abnormalities noted. Right Ventricle Normal size and thickness. Normal systolic function. Atria Normal left atrium. Normal right atrium. Normal atrial septum. Mitral Valve The mitral valve is structurally normal. No prolapse or stenosis seen. Trivial mitral valve insufficiency. Tricuspid Valve Normal tricuspid valve. Trivial tricuspid valve insufficiency. Right ventricular systolic pressure estimated to be 39 mmHg. Mild pulmonary hypertension. Aortic Valve Trisinus/trileaflet aortic valve. Pulmonic Valve Normal pulmonic valve. Great Vessels Normal aortic root. Normal arch. Normal inferior vena cava. Inferior vena cava collapse with sniff. Pericardium/Pleural No pericardial effusion. Medication Diluted definity 3ml given slow IV push to enhance endocardial definition. MMode/2D Measurements & Calculations LVIDd: 4.5 cm IVSd: 1.3 cm Ao root diam: 3.1 cm LVIDs: 2.6 cm LVPWd: 1.2 cm RVDd: 3.2 cm FS: 41.3 % LAV(MOD-bp): 48.8 ml LA A4 area: 17.1 cm2 LA dimension(2D): 4.3 cm LAV(MOD-bp) Indexed: 26.0 ml/m2 LAV(MOD-sp2): 47.0 ml LAV(MOD-sp4): 47.5 ml RA A4 area: 11.5 cm2 Doppler Measurements & Calculations MV E max eliseo: 57.1 cm/sec Lat Peak E' Eliseo: 6.9 cm/sec Med Peak E' Eliseo: 6.9 cm/sec MV A max eliseo: 72.5 cm/sec E/E' lat: 8.2 E/E' med: 8.3 MV E/A: 0.79 Ao V2 max: 135.8 cm/sec LV V1 max: 117.7 cm/sec PA V2 max: 91.3 cm/sec Ao max P.4 mmHg LV V1 max P.5 mmHg TR max eliseo: 289.8 cm/sec TR max P.6 mmHg Interpretation Summary The estimated ejection fraction is 65 %. Stage 1 diastolic dysfunction. Trivial mitral valve insufficiency. Trivial tricuspid valve insufficiency. Right ventricular systolic pressure estimated to be 39 mmHg. Mild pulmonary hypertension. Compared to echo report dated 08/14/2016, no appreciable changes noted. Ordering Physician: Prashant Berumen Performed By: Yary Alexander RDCS
--- NOTE | 2018-12-27 18:23 | EKG12_ITS ---
Test Reason : Blood Pressure : / mmHG Vent. Rate : 065 BPM Atrial Rate : 065 BPM P-R Int : 172 ms QRS Dur : 086 ms QT Int : 410 ms P-R-T Axes : 064 031 044 degrees QTc Int : 426 ms Normal sinus rhythm Normal ECG When compared with ECG of 17-NOV-2018 16:21, No significant change was found Confirmed by BANG MELVIN, ROSALIA ([id number]), technical writer and editor CHEPE STALLWORTH ([id number]) on 01/09/2019 2:58:16 PM Referred By: Confirmed By:ROSALIA CUENCA MD
[2018-12-27] MEDS: Docusate Sodium 100 MG Capsule PO (21:51)
[2018-12-27] MEDS: Citalopram 40 MG TABLET PO (21:51)
[2018-12-27] MEDS: RisperiDONE 1 MG Tablet PO (21:52)
[2018-12-27] MEDS: ALPRAZolam 0.5 MG Tablet 1 MG PO (21:55)
[2018-12-27] MEDS: Insulin Lispro 100 UNIT/ML INSULN.PEN SQ (21:55)
[2018-12-27 23:35] LABS: Bedside Glucose 389 mg/dL (70-110)
[2018-12-28] VITALS (21 sets, daily range): BP systolic 88–151; BP diastolic 56–93; PULSE 61–101; RESP 13–24; TEMP 36.3–36.7; O2SAT 93–100
--- NOTE | 2018-12-28 05:55 | EKG12_ITS ---
Test Reason : Blood Pressure : / mmHG Vent. Rate : 061 BPM Atrial Rate : 061 BPM P-R Int : 132 ms QRS Dur : 080 ms QT Int : 446 ms P-R-T Axes : 054 028 052 degrees QTc Int : 448 ms Normal sinus rhythm Normal ECG When compared with ECG of 27-DEC-2018 18:32, MANUAL COMPARISON REQUIRED, DATA IS UNCONFIRMED Confirmed by BANG MELVIN, ROSALIA ([id number]), medical transcription editor CHEPE STALLWORTH ([id number]) on 01/09/2019 2:56:26 PM Referred By: Confirmed By:ROSALIA CUENCA MD
[2018-12-28 06:20] LABS: International Normalized Ratio 1.1; Prothrombin Time (Protime)PT. 13.6 SECONDS (11.7-14.9)
[2018-12-28 06:21] LABS: Partial Thromboplast Time 27.9 Seconds (24.1-36.2)
[2018-12-28 06:24] LABS: Absolute Lymphocyte Count 2.44 X10^3/ul (0.83-4.51); Basophil# 0.07 X10^3/uL; Basophil% 0.7 % (0-1); Eosinophil# 0.26 X10^3/uL; Eosinophils% 2.8 % (0-5); Hematocrit 38.6 % (37-47); Hemoglobin 13.2 g/dl (12.0-15.0); Lymphocyte # 2.44 X10^3/ul (4.0); Lymphocyte % 26.1 % (19-41); Mean Corp Hgb Conc 34.2 g/gl (32-36); Mean Corpuscular Hgb 29.5 pg (27.0-32.0); Mean Corpuscular Volume 86.2 fL (81-99); Mean Platelet Vol. 10.6 fl (6.2-12.0); Monocyte# 0.53 X10^3/uL; Monocyte% 5.7 % (0-10); Neutrophil # 6.03 X10^3/uL (2.7-7.7); Neutrophil % 64.6 % (47-70); Platelet Count 281 K/mm3 (150-450); RBC Distribution Width CV 12.3 % (11.6-14.6); RBC Distribution Width SD 38.7 fl (35.1-43.9); Red Blood Count 4.48 M/mm3 (4.2-5.4); White Blood Count 9.3 K/mm3 (4.4-11.0)
[2018-12-28 06:25] LABS: D-Dimer Quantitative (DVT/PE) < 0.27 FEU/ug/m (0.27-0.49)
[2018-12-28 06:27] LABS: POSITIVE COUNT NO; POSITIVE DIFFERENTIAL NO; POSITIVE MORPHOLOGY NO
[2018-12-28 06:52] LABS: AST(SGOT) 9 U/L (15-37); Alanine Aminotransfer ALT/SGPT 16 U/L (13-56); Albumin, Serum 3.3 g/dL (3.2-5.0); Alkaline Phosphatase 118 U/L (45-117); Anion Gap 5 (5-15); BUN 7 mg/dL (7-18); BUN/Creat Ratio 8.7 RATIO (10-20); Calcium,Total 8.7 mg/dL (8.5-10.1); Chloride 101 mmol/L (98-107); Cholesterol 183 mg/dL (200); Creatinine, Serum 0.81 mg/dL (0.55-1.02); EST Glomerular Filtration Rate 75 mL/min (>60); Est Glom Filt Rate - Afr Amer 91 mL/min (>60); Globulin 3.2 g/dL (2.2-4.2); Glucose 219 mg/dL (74-106); High Density Lipoprotein 47 mg/dL; Potassium 3.8 mmol/L (3.5-5.1); Protein, Total 6.5 g/dL (6.4-8.2); Sodium Level 136 mmol/L (136-145); Thyroid Stim Hormone (TSH) 4.55 uIU/mL (0.358-3.74); Triglycerides 136 mg/dL; Very Low Density Lipoprotein 27 mg/dL (5-40)
[2018-12-28 06:55] LABS: Bedside Glucose 238 mg/dL (70-110)
--- NOTE | 2018-12-28 09:40 | STRESSREP_ITS ---
Stress Test Report Date: I have??19 Procedure: Exercise tolerance test/imaging study Indications: Chest pain Consent: Per the patient Procedure: The patient exercised on a Haroon protocol for 2 minutes not completing Stage I achieving a peak heart rate of 116 bpm (75 % predicted maximal heart rate) with a peak blood pressure 204/90 mmHg and a peak MET capacity of 4 METs. The baseline ECG demonstrated normal sinus rhythm. The peak exercise ECG demonstrated no obvious ECG changes. There were no cardiac dysrhythmias pretest, during exercise, or recovery. The functional capacity was considered decreased. There was no complaint of chest discomfort during exercise or recovery. The examination was discontinued secondary to shortness of breath and weakness. Impression: 1. Technically adequate (percent predicted maximal heart rate greater than 85%) exercise tolerance test 2. Peak exercise ECG with no obvious ECG changes at the heart rate achieved 3. There were no cardiac dysrhythmias pretest, during exercise, or recovery 4. Pharmacologic (Regadenoson) evaluation pending Procedure: Pharmacologic stress nuclear imaging study Consent: Per the patient Procedure: The patient underwent pharmacologic (Regadenoson) evaluation with a peak heart rate of 80 beats per minute (52 %predicted maximal heart rate) and a peak blood pressure of 120/80 mmHg. The baseline ECG demonstrated normal sinus rhythm. The peak pharmacologic ECG demonstrated no obvious ECG changes. There were no cardiac dysrhythmias pretest, during pharmacologic infusion, or recovery. There was no complaint of chest discomfort during pharmacologic infusion or recovery. The examination was discontinued secondary to completion of protocol. Impression: 1. Pharmacologic (Regadenoson) evaluation 2. Peak pharmacologic ECG with no obvious ECG changes. 3. There were no cardiac dysrhythmias pretest, during pharmacologic infusion, or recovery. 4. Nuclear images pending Myocardial perfusion imaging study: Technique: The patient was injected with 11.6 millicuries of technetium 99m Cardiolite and subsequently rest SPECT Cardiolite nuclear imaging was obtained in the horizontal long, vertical long, and short axis views. The patient exercised on a Haroon protocol for 2 minutes not completing Stage I achieving a peak heart rate of 116 bpm (75 % predicted maximal heart rate) with a peak blood pressure 204/90 mmHg and a peak MET capacity of 4 METs. The patient underwent pharmacologic (Regadenoson) evaluation with a peak heart rate of 80 beats per m inute (52 %predicted maximal heart rate) and a peak blood pressure of 120/80 mmHg. The patient was injected with 33.3 millicuries of technetium 99m Cardiolite and subsequently stress SPECT Cardiolite nuclear imaging was obtained in the horizontal long, vertical long, and short axis views. A gated Cardiolite study at peak stress was obtained. Interpretation: Rest and stress SPECT Cardiolite nuclear imaging status post realignment, normalization, and attenuation correction demonstrate relative uniform tracer uptake at rest. Status post stress there is subtle diminished tracer uptake in portions of the distal anterior/anterior apical segments. There is end systolic thickening and brightening. The gated Cardiolite study demonstrates myocardial thickening and inward wall motion. The reported LVEF is 64 %. Impression: 1. Rest and stress SPECT Cardiolite nuclear imaging demonstrate myocardial perfusion changes status post stress in the distal anterior/anterior apical segments potentially compatible with shifting soft tissue attenuation/artifact, however, an element of stress-induced myocardial ischemia cannot necessarily be excluded. 2. The gated Cardiolite study reports an LVEF of 64 %. This note was generated with [employer]ged Accessation software. It may contain incorrect words, spelling, and punctuation that were not noted in checking the note before signing.
[2018-12-28] MEDS: Clopidogrel Bisulfate 300 MG Tablet PO (10:30)
[2018-12-28] MEDS: Pantoprazole Sodium 20 MG Tablet PO (10:30)
--- NOTE | 2018-12-28 10:30 | PN_ITS ---
Patient Problems: Active and Suspected Problems Chest pain (Acute) Subjective: Patient is a 68-year-old lady admitted with chest pain. Admitted to monitored bed MN was ruled out with serial cardiac enzymes patient underwent a nuclear stress test which was questionable for ischemia in the distal anterior as well as anterior apical segments. Cardiology consulted patient started on Plavix with plans for patient undergo left heart catheterization on 12/29/2018 Objective: GENERAL: cooperative HEENT: Atraumatic; moist oral mucosa EYES; Anicteric, Normal Conjunctiva NECK; supple, normal thyroid, no distended JVD. RESPIRATORY: Diminished to auscultation bilaterally, CARDIOVASCULAR: Regular S1 S2, no audible murmurs GI: soft, non-tender, normoactive bowel sounds, : No Renal angle tenderness; EXTREMITIES: No edema, no clubbing, no cyanosis. MUSCULOSKELETAL: No Joint Tenderness; no muscle waisting NEURO: Awake; no lateralizing signs. SKIN: No Rash PSYCH; Normal affect Vitals/I&O's: Vital Signs Temp Pulse Resp BP Pulse Ox 97.6 F L 101 H 18 120/71 96 12/28/18 06:34 12/28/18 06:39 12/28/18 06:34 12/28/18 06:34 12/28/18 06:34 Oxygen Flow Rate (L/min) 2 Oxygen Delivery Method Nasal Cannula Weight: 86.9 kg Body Mass Index (BMI) 35.0 Laboratory Results 12/27/18 16:55: WBC 11.4 H, RBC 4.55, Hgb 13.1, Hct 38.7, MCV 85.1, MCH 28.8, MCHC 33.9, RDW 12.0, RDW Differential 36.0, Plt Count 281, MPV 11.1, Immature Gran % (Auto) 0.300, Neut % (Auto) 74.0 H, Lymph % (Auto) 18.9 L, Crenshaw % (Auto) 4.9, Eos % (Auto) 1.5, Baso % (Auto) 0.4, Absolute Neuts (auto) 8.4 H, Absolute Lymphs (auto) 2.15, Total Counted Not Reportable, Platelet Estimate ADEQUATE, RBC Morphology NORM C+C 12/27/18 16:55: Sodium 128 L, Potassium 4.1, Chloride 93 L, Carbon Dioxide 29.0, Anion Gap 6, BUN 6 L, Creatinine 0.90, Estim Creat Clear Calc 47.97, Est GFR (MDRD) Af Amer 80, Est GFR (MDRD) Non-Af 66, BUN/Creatinine Ratio 6.7 L, Glucose 376 H, Calcium 8.7, Troponin I < 0.015, Lipase 79 12/27/18 20:20: Troponin I < 0.015 12/27/18 21:49: POC Glucose 389 H 12/27/18 23:05: Troponin I < 0.015 12/28/18 05:55: WBC 9.3, RBC 4.48, Hgb 13.2, Hct 38.6, MCV 86.2, MCH 29.5, MCHC 34.2, RDW 12.3, RDW Differential 38.7, Plt Count 281, MPV 10.6, Immature Gran % (Auto) 0.100, Neut % (Auto) 64.6, Lymph % (Auto) 26.1, Crenshaw % (Auto) 5.7, Eos % (Auto) 2.8, Baso % (Auto) 0.7, Absolute Neuts (auto) 6.0, Absolute Lymphs (auto) 2.44, Total Counted Not Reportable 12/28/18 05:55: PT 13.6, INR 1.1, APTT 27.9, D-Dimer Quant (PE/DVT) < 0.27 L 12/28/18 05:55: Sodium 136, Potassium 3.8, Chloride 101, Carbon Dioxide 30.0, Anion Gap 5, BUN 7, Creatinine 0.81, Estim Creat Clear Calc 53.30, Est GFR (MDRD) Af Amer 91, Est GFR (MDRD) Non-Af 75, BUN/Creatinine Ratio 8.7 L, Glucose 219 H, Calcium 8.7, Total Bilirubin 0.20, AST 9 L, ALT 16, Alkaline Phosphatase 118 H, Total Protein 6.5, Albumin 3.3, Globulin 3.2, Albumin/Globulin Ratio 1.0, Triglycerides 136, Cholesterol 183, LDL Cholesterol 109, VLDL Cholesterol 27, HDL Cholesterol 47, TSH 4.55 H 12/28/18 06:31: POC Glucose 238 H Current Medications Acetaminophen (Tylenol) 650 mg PO Q6H PRN PRN PRN Reason: Mild pain 1-3/Temp > 100.7 F Al Hydroxide/Mg Hydroxide (Mylanta Ii) 30 ml PO Q6H PRN PRN PRN Reason: Gastric Burning Albuterol Sulfate (Ventolin Aerosols) 2.5 mg INHALATION Q2H PRN PRN PRN Reason: SOB/Wheezing Albuterol/Ipratropium (Duoneb) 3 ml INHALATION TID PRN PRN PRN Reason: SOB &/OR WHEEZING Alprazolam (Xanax) 1 mg PO TID PRN PRN PRN Reason: ANXIETY Last Admin: 12/27/18 21:55 Dose: 1 mg Citalopram Hydrobromide (Celexa) 40 mg PO QHS [facility] Last Admin: 12/27/18 21:51 Dose: 40 mg Clopidogrel Bisulfate (Plavix) 75 mg PO DAILY [facility] Dextrose (D50w Syringe) 0 gm IV X1 PRN; Protocol PRN Reason: Hypoglycemia Diphenhydramine HCl (Benadryl) 50 mg PO X1 ONE Stop: 12/28/18 10:24 Docusate Sodium (Colace) 100 mg PO BID [facility] Last Admin: 12/27/18 21:51 Dose: 100 mg Enoxaparin Sodium (Lovenox) 40 mg SC DAILY@1000 PILY Glucagon () 1 mg IM .X1 PRN PRN Reason: Hypoglycemia Guaifenesin (Robitussin) 20 ml PO Q4H PRN PRN PRN Reason: COUGH Sodium Chloride () 1,000 mls @ 0 mls/hr IV .Q0M PILY Insulin Glargine (Lantus (Bkc)) 32 units SC QHS [facility] Last Admin: 12/27/18 21:51 Dose: 32 u Insulin Human Lispro (Humalog Kwikpen (Bkc)) 0 unit SQ ACHS [facility]; Protocol Last Admin: 12/28/18 08:48 Dose: Not Given Magnesium Hydroxide (Milk Of Magnesia) 30 ml PO DAILY PRN PRN PRN Reason: Constipation Melatonin (Melatonin) 3 mg PO QHS PRN PRN PRN Reason: INSOMNIA Morphine Sulfate () 4 mg IV Q3H PRN PRN PRN Reason: Severe Pain (7-10/10) Nitroglycerin (Nitrostat) 0.4 mg SUBLINGUAL Q5M PRN PRN Reason: CHEST PAIN Ondansetron HCl (Zofran) 4 mg IV Q8H PRN PRN PRN Reason: NAUSEA/VOMITING Oxycodone HCl (Oxyir) 10 mg PO Q4H PRN PRN PRN Reason: Moderate Pain (4-6/10) Pantoprazole Sodium (Protonix) 20 mg PO DAILY PILY Promethazine HCl (Phenergan) 25 mg IM Q6H PRN PRN PRN Reason: Breakthrough Nausea/Vomiting Risperidone (Risperdal) 1 mg PO QHS [facility] Last Admin: 12/27/18 21:52 Dose: 1 mg Sodium Chloride () 5 - 15 ml IV UD PRN PRN Reason: SALINE FLUSH Medical Necessity - Tobacco Use Smoking Status: Current every day smoker Assessment/Plan All Active Problems Chest pain (Acute) Patient is a 68-year-old lady presented with chest pain 1. Chest Pain: Admitted to monitored bed MN was ruled out with serial cardiac enzymes patient underwent a nuclear stress test which was questionable for ischemia in the distal anterior as well as anterior apical segments. Cardiology) Dr. Wilcox) consulted patient started on Plavix with plans for patient undergo left heart catheterization on 12/29/2018 2. Diabetes mellitus type 2 uncontrolled with hyperglycemia did continue with home meds. Patient was also placed on Accu-Cheks before meals and at bedtime with sliding scale coverage 3. Hypertension-blood pressure controlled, 4. Muscular dystrophy 5. Depression with anxiety 6. Tobacco dependence counseled on cessation, offered nicotine patch for tobacco cravings 7. Obesity with BMI of 35 weight loss advised 8. DVT prophylaxis SC Lovenox Code Visit OBSV E&M: 45622 Subsequent observation care L3
--- NOTE | 2018-12-28 10:40 | CASEMGMT ---
According to the [facility] website, the following are in-network tertiary facilities: [facility], [place], [facility], [place], [facility], [facility], [facility], [place], [facility], and . Julio Cesar [facility]
--- NOTE | 2018-12-28 11:25 | CON.PCM_ITS ---
Problem List (1) Chest pain Status: Acute Reason for Consult Date of Consultation: 12/28/18 Reason for Consultation: Dyspnea on exertion, abnormal stress test History of Present Illness: The patient is a 68 year old F with a history of tobacco abuse, of approximately 40 pack years, currently smokes, COPD with O2 nasal cannula at night only, diabetes, unknown cholesterol no previous cardiac history, catheterization, angioplasty or CVA. The patient notes that she has had new onset jaw pain occurring about 2 to 3 days ago with associated dyspnea on exertion and shortness of breath. In addition she feels as though there is a knot in the center of her chest and she cannot walk more than 2 blocks due to dyspnea on exertion or shortness of breath. In addition she has complaints of recumbent severe coughing, mostly due to mucus drainage according to her. She is not on an CURT inhibitor. Patient initially underwent a treadmill/MPI this morning but is only able to walk about 2 minutes before she had severe shortness of breath and hypertensive blood pressure response to exercise. This was then converted to a pharmacologic nuclear stress test which demonstrated mid anterior and apical ischemia on imaging. [] Past Medical History Allergies/Adverse Reactions: Allergies amoxicillin [Amoxicillin] Allergy (Intermediate, Verified 12/27/18 16:39) Rash gabapentin [From Neurontin] Allergy (Verified 12/27/18 16:39) Shortness of breath levofloxacin [From Levaquin] Allergy (Verified 12/27/18 16:39) Hivtj is allergic to the red dye in the pill form, states she is fine with the iv form. pseudoephedrine HCl [From Sudafed] Allergy (Verified 12/27/18 16:39) Shortness of breath codeine Adverse Reaction (Verified 12/27/18 16:39) HEADACHE Home Medications: Ambulatory Orders Medication Instructions Recorded Docusate Sodium [Colace] 100 mg PO BID 05/23/13 Risperidone [Risperdal] 1 mg PO QHS 05/23/13 Citalopram [Celexa] 40 mg PO QHS 07/04/14 Ipratropium/Albuterol Sulfate 3 ml INHALATION TID PRN PRN 08/24/16 [Duoneb] ALPRAZolam [Xanax] 1 mg PO TID PRN PRN 08/25/16 Insulin Glargine,Hum.rec.anlog 32 unit SQ QHS 08/25/16 [Lantus] Insulin Lispro [Humalog] 0 - 200 units SQ TIDCM 08/25/16 Omeprazole [Prilosec] 20 mg PO DAILY 12/27/18 Past Medical History (Chronic Problems): Chronic Problems Smoking (Chronic) Chronic respiratory failure (Chronic) On home oxygen Muscular dystrophy (Chronic) Hyponatremia (Chronic) Acute exacerbation of chronic obstructive pulmonary disease (COPD) (Chronic) Hypothyroidism (Chronic) COPD (chronic obstructive pulmonary disease) (Chronic) Depression (Chronic) [place] esophagus (Chronic) Postprandial bloating (Chronic) Anxiety (Chronic) Surgical History: cholecystectomy Psychiatric History: Anxiety, Depression 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 Denies: Shortness of Breath, Orthopnea, PND, Peripheral Edema, Palpitations, Lightheadedness, Dizziness, Near Syncope, Syncope Respiratory: Denies: Cough, Sputum Production, Hemoptysis Gastrointestinal: Denies: Hematemesis, Hematochezia, Melena Genitourinary: Denies: Dysuria, Hematuria Skin: Denies: Rash Subjectve: Patient sitting in bed, no acute distress. Does have some significant coughing with laying down but appears to be well tolerated. Objective: Vital Signs Temp Pulse Resp BP Pulse Ox 97.8 F 67 16 139/78 H 98 12/28/18 10:30 12/28/18 10:30 12/28/18 10:30 12/28/18 10:30 12/28/18 10:30 Oxygen Flow Rate (L/min) 2 Oxygen Delivery Method Nasal Cannula Weight: 191 lb 9.307 oz Body Mass Index (BMI) 35.0 General: Awake, Alert, Oriented x 3 HEENT: PERRL, EOMI, Sclera Non Icteric Neck: Supple, Good ROM, No Lymph Node Enlargement Lungs: Clear to auscultation Cardiovascular: Regular Rhythm, Normal S1, Normal S2, No Murmurs, No Rubs, No Gallops Vascular: No Carotid Bruits, Normal Femoral Pulses, Normal Radial Pulses, Normal Dorsalis Pedal Pulse, Normal Posterior Tibial Pulses Abdomen: Bowel Sounds Present, Soft, Non Tender, No HSM, No Organomegaly Extremities: No Cyanosis, No Clubbing, No edema Neurological: No Focal Motor or Sensory Deficit 12/27/18 16:55: WBC 11.4 H, RBC 4.55, Hgb 13.1, Hct 38.7, MCV 85.1, MCH 28.8, MCHC 33.9, RDW 12.0, RDW Differential 36.0, Plt Count 281, MPV 11.1, Immature Gran % (Auto) 0.300, Neut % (Auto) 74.0 H, Lymph % (Auto) 18.9 L, [place] % (Auto) 4.9, Eos % (Auto) 1.5, Baso % (Auto) 0.4, Absolute Neuts (auto) 8.4 H, Total Counted Not Reportable 12/27/18 16:55: Sodium 128 L, Potassium 4.1, Chloride 93 L, Carbon Dioxide 29.0, Anion Gap 6, BUN 6 L, Creatinine 0.90, Est GFR (MDRD) Af Amer 80, Est GFR (MDRD) Non-Af 66, BUN/Creatinine Ratio 6.7 L, Glucose 376 H, Calcium 8.7, Troponin I < 0.015 12/27/18 20:20: Troponin I < 0.015 12/27/18 23:05: Troponin I < 0.015 12/28/18 05:55: WBC 9.3, RBC 4.48, Hgb 13.2, Hct 38.6, MCV 86.2, MCH 29.5, MCHC 34.2, RDW 12.3, RDW Differential 38.7, Plt Count 281, MPV 10.6, Immature Gran % (Auto) 0.100, Neut % (Auto) 64.6, Lymph % (Auto) 26.1, [place] % (Auto) 5.7, Eos % (Auto) 2.8, Baso % (Auto) 0.7, Absolute Neuts (auto) 6.0, Total Counted Not Reportable 12/28/18 05:55: PT 13.6, INR 1.1, APTT 27.9, D-Dimer Quant (PE/DVT) < 0.27 L 12/28/18 05:55: Sodium 136, Potassium 3.8, Chloride 101, Carbon Dioxide 30.0, Anion Gap 5, BUN 7, Creatinine 0.81, Est GFR (MDRD) Af Amer 91, Est GFR (MDRD) Non-Af 75, BUN/Creatinine Ratio 8.7 L, Glucose 219 H, Calcium 8.7, Total Bilirubin 0.20, Triglycerides 136, Cholesterol 183, LDL Cholesterol 109, VLDL Cholesterol 27, HDL Cholesterol 47 Rhythm: EKG: Normal sinus rhythm, no acute changes. ECHO: Pending Stress Test: Cardiac Cath: PCI: CT Surgery: Holter monitor: EPS: PPM: CXR: Chest CT Scan: Assessment/Plan 1. Unstable angina: The patient has new onset substernal chest pressure, ra diating to her jaw, with associated severe dyspnea on exertion, shortness of breath superimposed on an abnormal stress test for mid anterior apical hypokinesis and ischemia. I recommended the patient continue baby aspirin, be loaded with Plavix 300 mg x 1 now followed by 75 mg daily. In addition I recommend that she undergo a left heart catheterization to assess her coronary anatomy. The risks/benefits of the procedure were thoroughly explained to the patient, with specific attention to lack of on-site surgical back-up, and informed consent obtained. We will need to use cautious use of beta-blockers given her COPD. Would not recommend CURT inhibitors given her dry cough. She may benefit from ARB's to avoid dry hacking cough. In addition she has a 2D echo with Doppler ordered and results are pending. 2. Hyperlipidemia: LDL is 109 and HDL is 47. Would recommend adding statin based medications to aggressively lower her LDL given her diabetes and ongoing smoking. 3. Tobacco abuse: I strongly recommended continuation of all tobacco products. Patient already has evidence of emphysema and requires O2 therapy at night. 4. Thank you very much for the opportunity to precipitate cardiac care of your patient. Consultation time took place between 10:30 AM and 11 AM.
[2018-12-28 11:50] LABS: Bedside Glucose 255 mg/dL (70-110)
[2018-12-28] MEDS: Nitroglycerin (INPATIENT USE) 0.4 MG TAB.SUBL SUBLINGUAL (13:52)
--- NOTE | 2018-12-28 13:53 | EKG12_ITS ---
Test Reason : CP Blood Pressure : / mmHG Vent. Rate : 069 BPM Atrial Rate : 069 BPM P-R Int : 150 ms QRS Dur : 078 ms QT Int : 406 ms P-R-T Axes : 063 032 044 degrees QTc Int : 435 ms Normal sinus rhythm Nonspecific T wave abnormality Abnormal ECG When compared with ECG of 28-DEC-2018 05:27, MANUAL COMPARISON REQUIRED, DATA IS UNCONFIRMED Confirmed by BANG MELVIN, ROSALIA ([id number]), visual effects editor CHEPE STALLWORTH ([id number]) on 01/09/2019 2:55:02 PM Referred By: JAD Confirmed By:ROSALIA CUENCA MD
--- NOTE | 2018-12-28 14:06 | NURSING ---
Called report to Issa CANSECO in electroplating laborer
[2018-12-28] MEDS: DiphenhydrAMINE 25 MG Capsule 50 MG PO (14:07)
[2018-12-28 16:01] LABS: ACT Activated Clotting Time 186 sec (74-137)
--- NOTE | 2018-12-28 16:03 | NURSING ---
Called report to Jorge CANSECO in ICU
--- NOTE | 2018-12-28 16:12 | CL.I_ITS ---
Patient Name: TIM CEDILLO Study Date: 12/28/2018 Performing: Brice Wilcox MD Ht: 61.81 inches 157 cm : 1950 Wt: 191.8 lbs 87 kg Age: 68 Gender: female BSA: 1.87 PROCEDURE(S) PERFORMED VB30-MRY/COR/LV [id number] W OR WO PTCA, SINGLE CORONARY ARTERY [id number] W OR WO PTCA, EACH ADD'L ARTERY, SAME MAJOR CLINICAL PROFILE AND CO-MORBIDITIES Indications: ACS > 24 hrs, New Onset Angina <= 2 months, Suspected CAD Heart Failure: None Stress/Imaging Date: 12/28/2018 Stress Test with SPECT MPI: Positive Intermediate Risk Angina Classification Anginal Classification w/in 2 Weeks: CCS III CAD Presentations: Unstable angina. Other: Jaw pain, dyspnea Comorbidities/Risk Factors: Current/Recent Smoker (< 1year) Hypertension Dyslipidemia Chronic Lung Disease Diabetes Mellitus: Diabetes Therapy: Oral CONCLUSIONS 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 Successful PTCA/RACHEL mid LAD with a 2.5 x 20 Promus Synergy, post dilated with a 2.5 x 12 NC Balloon a fter DIAG stent deployed; 75%-->0%, no dissection. RECOMMENDATIONS Referred for immediate PCI Highly recommend quitting all tobacco products Follow up with primary exhibitions curator Risk factor modification ASA Indefinitley Plavix for at least 12 months Routine post interventional care Refer for Outpatient Cardiac Rehab Manual sheath removal per protocol Follow up with Dr. Wilcox Successful Mynx Control closure of RFA. DESCRIPTION OF PROCEDURE The patient arrived to the procedure lab. The risks and benefits of the procedure as well as a full d escription of our services here and lack of surgical backup were fully explained to the patient and/o r their significant other prior to the catheterization. The Timeout was completed, verifying the rommel ect patient and procedure. The patient's procedural site was prepped and draped in the usual fashion. Local anesthetic was given subcutaneously to right groin region with Lidocaine 2%. Using a modified Seldinger technique, arterial access was obtained via the right femoral artery, a 4Fr sheath was inse rted. Left Coronary Artery selective angiography was performed in multiple views using a 4 Fr. JL5 c atheter. Right Coronary Artery selective angiography was then performed in multiple views using a 4 F r. 3DRC catheter. Left Ventriculography was performed in LUONG projection using a 4 Fr. Pigtail cathete r. LV to AO pullback pressures were then recorded Arterial sheath was exchanged for a 6 Fr Sheath. EBU 3.5 Guide catheter was inserted and engaged into the LCA. [employer] (1) Guide wire was advanced to the LAD. [employer] (2) Guide wire was advanced to the 1st Diagonal. Emerge 2.0 x 12 Balloon catheter was inserted. Balloon catheter was adv anced across lesion in the first diagonal, ostial at the bifurcation. PTCA balloon inflated at 6 atms for 40 secs. PTCA balloon inflated at 6 atms for 25 secs. Angiogram performed post balloon dilatatio n. Synergy 2.5 x 20 Drug Eluting stent was inserted. Drug Eluting stent was advanced across the lesio n in the LAD, mid. Angiogram performed post stent deployment. Emerge 2.0 x 12 Balloon catheter was re inserted Balloon catheter was advanced across lesion in the first diagonal, ostial. PTCA balloon infl ated at 8 atms for 10 secs. Synergy 2.25 x 12 Drug Eluting stent was inserted. Drug Eluting stent was advanced across the lesion in the first diagonal, ostial. Angiogram performed pre stent deployment. Angiogram performed post stent deployment. Emerge 2.0 x 12 Balloon catheter was reinserte d Balloon catheter was advanced across lesion in the LAD, mid. NC 2.0 x 12 Balloon catheter was inser oscar. Balloon catheter was advanced across lesion in the LAD, mid. Angiogram performed post balloon di latation. Contrast was injected through the sheath and the Right Iliac and Femoral artery were assess ed for possible closure device. The arterial sheath was pulled and a Mynx closure device was deploye d for hemostasis CORONARY ANGIOGRAPHY DOMINANCE: Right Dominant LEFT HEART ASSESSMENT Left Ventricular Ejection Fraction: by LV Gram 65 % Normal Left Ventricular systolic function LVEDP: 9 mmHg Normal Left Ventricular End Diastolic Pressure Normal LV wall motion LEFT MAIN: Angiographically normal LEFT ANTERIOR DESCENDING ARTERY: MID LAD: 75 % Stenosis DIAGONAL 2: Ostial - 75 % Stenosis CIRCUMFLEX ARTERY: Mild luminal irregularities less than 30% RIGHT CORONARY ARTERY: MID RCA: 40 % Stenosis INTERVENTION INFORMATION LESION SITE: 1st Diagonal (Ostial) Lesion Complexity: High/C, lesion at bifurcation: Yes, thrombus present: No, lesion length: 12 mm, cu lprit lesion: No Pre Stenosis: 75 % Pre intervention DESMOND flow: 3 PROCEDURE: Drug Eluting Stent with pre dilatation. Post Stenosis: 0 % Post intervention DESMOND flow: 3 Lesion Devices: Medtronic 6 Fr EBU3.5 100cm Guide Catheter Mejia .014 [employer] Straight 190cm Mejia .014 [employer] Straight 190cm Romain Sci EMERGE MR 2.00x12 BALLOON Romain Sci Synergy MR RACHEL 2.25x12 Romain Sci NC EMERGE MR 2.50x12 BALLOON LESION SITE: LAD (Mid) Lesion Complexity: High/C, lesion at bifurcation: Yes, thrombus present: No, lesion length: 20 mm, cu lprit lesion: Yes Pre Stenosis: 75 % Pre intervention DESMOND flow: 3 PROCEDURE: Drug Eluting Stent with post dilatation Post Stenosis: 0 % Post intervention DESMOND flow: 3 Lesion Devices: Medtronic 6 Fr EBU3.5 100cm Guide Catheter Mejia .014 [employer] [place] Straight 190cm Mejia .014 [employer] Straight 190cm Romain Sci EMERGE MR 2.00x12 BALLOON [employer]ain [employer] Synergy MR RACHEL 2.50x20 Romain Sci NC EMERGE MR 2.50x12 BALLOON COMPLICATIONS No Complications PROCEDURE MEDICATIONS Oxygen: 2 L/min via nasal cannula Heparin 6000 unit(s) IV 12/28/2018 15:13:53 Nitro 200 mcg IC 12/28/2018 15:15:08 Nitro 200 mcg IC 12/28/2018 15:15:08 Nitro 200 mcg IC 12/28/2018 15:25:17 Nitro 200 mcg IC 12/28/2018 15:28:46 Nitro 200 mcg IC 12/28/2018 15:42:06 IV Bolus: .9 NaCl 850 ml total 12/28/2018 15:14:01 IV Fluids: .9 NaCl decreased to 150 ml/hr 12/28/2018 15:55:32 SUMMARY OF HEMODYNAMIC DATA Time AIR REST ECG 14:50:32 AO 117/65 (87) SA 15:06:42 LV 159/-21, 10 15:11:32 LV 163/-20, 9 15:11:39 LVp 159/-21, 6 15:11:46 AOp 166/66 (104) 15:11:51 Signed By Brice Wilcox MD On 12/28/2018 4:11:18 PM Brice Wilcox MD
--- NOTE | 2018-12-28 16:16 | EKG12_ITS ---
Test Reason : PCI Blood Pressure : / mmHG Vent. Rate : 059 BPM Atrial Rate : 059 BPM P-R Int : 162 ms QRS Dur : 082 ms QT Int : 428 ms P-R-T Axes : 073 045 059 degrees QTc Int : 423 ms Sinus bradycardia Otherwise normal ECG No previous ECGs available Confirmed by ANABELLE GARCIA ([id number]), managing editor CHEPE STALLWORTH ([id number] on 01/04/2019 12:57:34 PM Referred By: TALA Confirmed By:MARKUS GARCIA
[2018-12-28] MEDS: 0.9% Normal Saline 1,000 ML 150 ML IV (17:07)
[2018-12-28 17:11] LABS: Bedside Glucose 137 mg/dL (70-110)
[2018-12-28] MEDS: Insulin Lispro 100 UNIT/ML INSULN.PEN SQ (21:17)
[2018-12-28] MEDS: RisperiDONE 1 MG Tablet PO (21:18)
[2018-12-28] MEDS: Citalopram 40 MG TABLET PO (21:19)
[2018-12-28] MEDS: Docusate Sodium 100 MG Capsule PO (21:20)
[2018-12-28 21:31] LABS: Bedside Glucose 307 mg/dL (70-110)
[2018-12-28] MEDS: Ipratropium/Albuterol Sulfate 3 ML AMPUL.NEB INHALATION (23:31)
[2018-12-29] VITALS (12 sets, daily range): BP systolic 95–139; BP diastolic 50–89; PULSE 60–76; RESP 14–25; TEMP 36.3–36.4; O2SAT 96–100; BMI 34.9
[2018-12-29 04:37] LABS: Hematocrit 37.8 % (37-47); Hemoglobin 12.5 g/dl (12.0-15.0); Mean Corp Hgb Conc 33.1 g/gl (32-36); Mean Corpuscular Hgb 28.9 pg (27.0-32.0); Mean Corpuscular Volume 87.3 fL (81-99); Mean Platelet Vol. 10.7 fl (6.2-12.0); Platelet Count 258 K/mm3 (150-450); RBC Distribution Width CV 12.3 % (11.6-14.6); RBC Distribution Width SD 38.4 fl (35.1-43.9); Red Blood Count 4.33 M/mm3 (4.2-5.4); Scan Indicated on CBC? Y/N NO
[2018-12-29 04:53] LABS: Anion Gap 6 (5-15); BUN 7 mg/dL (7-18); BUN/Creat Ratio 9.2 RATIO (10-20); Calcium,Total 8.5 mg/dL (8.5-10.1); Chloride 106 mmol/L (98-107); Cholesterol 170 mg/dL (200); Creatinine, Serum 0.76 mg/dL (0.55-1.02); EST Glomerular Filtration Rate 80 mL/min (>60); Est Glom Filt Rate - Afr Amer 97 mL/min (>60); Estimated Creatinine Clearance 43.18 ml/min; Glucose 137 mg/dL (74-106); High Density Lipoprotein 44 mg/dL; Potassium 3.8 mmol/L (3.5-5.1); Sodium Level 142 mmol/L (136-145); Triglycerides 131 mg/dL; Very Low Density Lipoprotein 26 mg/dL (5-40)
[2018-12-29 06:50] LABS: Bedside Glucose 133 mg/dL (70-110)
--- NOTE | 2018-12-29 07:40 | DCINST_ITS ---
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 Per [facility]N @ [facility] 12/08/2018 Stented coronary artery (Chronic 12/28/18) 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 Successful PTCA/RACHEL mid LAD with a 2.5 x 20 Promus Synergy, post dilated with a 2.5 x 12 NC Balloon after DIAG stent deployed; 75%-->0%, no dissection. Chest pain (Acute) You will use the following diet at home:: Calorie/Carbohydrate Controlled (specify 1200, 1400, etc) - 1800, Cardiac Your food should be the consistency of: Regular Discharge Activity: Return to Normal Activity Call your doctor if you observe: Shortness of breath, Dizziness, Chest pain, Increased palpitations (irregular heartbeat) Allergies/Adverse Reactions: Allergies amoxicillin [Amoxicillin] Allergy (Intermediate, Verified 12/27/18 16:39) Rash gabapentin [From Neurontin] Allergy (Verified 12/27/18 16:39) Shortness of breath levofloxacin [From Levaquin] Allergy (Verified 12/27/18 16:39) Hives is allergic to the red dye in the pill form, states she is fine with the iv form. pseudoephedrine HCl [From Sudafed] Allergy (Verified 12/27/18 16:39) Shortness of breath codeine Adverse Reaction (Verified 12/27/18 16:39) HEADACHE Medications to take at Discharge Docusate Sodium [Colace] 100 mg PO BID 05/23/13 Risperidone [Risperdal] 1 mg PO QHS 05/23/13 Citalopram [Celexa] 40 mg PO QHS 07/04/14 Ipratropium/Albuterol Sulfate [Duoneb] 3 ml INHALATION TID PRN PRN 08/24/16 ALPRAZolam [Xanax] 1 mg PO TID PRN PRN 08/25/16 Insulin Glargine,Hum.rec.anlog [Lantus] 32 unit SQ QHS 08/25/16 Insulin Lispro [Humalog] 0 - 200 units SQ TIDCM 08/25/16 Omeprazole [Prilosec] 20 mg PO DAILY 12/27/18 Aspirin [Aspirin EC] 81 mg PO DAILY #90 tablet. 12/29/18 Atorvastatin Calcium [Lipitor] 80 mg PO QHS #90 tablet 12/29/18 Clopidogrel Bisulfate [Plavix] 75 mg PO DAILY #90 tablet 12/29/18 Losartan Potassium [Cozaar] 12.5 mg PO DAILY #90 tablet 12/29/18 Metoprolol Tartrate 12.5 mg PO BID #90 tablet 12/29/18 The following prescriptions were given: Aspirin [Aspirin EC] 81 mg PO DAILY #90 tablet. Atorvastatin Calcium [Lipitor] 80 mg PO QHS #90 tablet Clopidogrel Bisulfate [Plavix] 75 mg PO DAILY #90 tablet Losartan Potassium [Cozaar] 12.5 mg PO DAILY #90 tablet Metoprolol Tartrate 12.5 mg PO BID #90 tablet Orders to be completed after discharge: Phase II, Outpatient Cardiac Rehab Location: None Selected Primary Care Physician: Mike Richard MD [Primary Care Provider] - Please follow up with your Primary Care Physician in: in 5-7 days Test Results: Test results from this visit will be discussed in further detail at your follow- up appointment, if applicable. Please Follow Up With: Brice Wilcox MD When: in 2-3 weeks Proposed Discharge Date: 12/29/18
--- NOTE | 2018-12-29 07:41 | PCM.DC.SUM ---
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 Per DJN @ [facility] 12/08/2018 Stented coronary artery (Chronic 12/28/18) 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 Successful PTCA/RACHEL mid LAD with a 2.5 x 20 Promus Synergy, post dilated with a 2.5 x 12 NC Balloon after DIAG stent deployed; 75%-->0%, no dissection. Smoking (Chronic) Chronic respiratory failure (Chronic) On home oxygen Muscular dystrophy (Chronic) Hyponatremia (Chronic) Acute exacerbation of chronic obstructive pulmonary disease (COPD) (Chronic) Hypothyroidism (Chronic) COPD (chronic obstructive pulmonary disease) (Chronic) Depression (Chronic) [place] esophagus (Chronic) Postprandial bloating (Chronic) Anxiety (Chronic) Hospital Course and Treatment Operations: None Summary of Care Provided: Patient is a 68-year-old lady presented with chest pain 1. Chest Pain: Admitted to monitored bed [place] was ruled out with serial cardiac enzymes patient underwent a nuclear stress test which was questionable for ischemia in the distal anterior as well as anterior apical segments. Cardiology) Dr. Wilcox) consulted patient started on Plavix and underwent left heart catheterization on 12/28/2018 with intervention (PCI/RACHEL to an ostial diagonal lesion as well as a mid LAD lesion). Patient was discharged home on recommended medications including dual antiplatelet therapy with aspirin and Plavix, beta-blockers, statin therapy as well as losartan. 2. Diabetes mellitus type 2 uncontrolled with hyperglycemia did continue with home meds. Patient was also placed on Accu-Cheks before meals and at bedtime with sliding scale coverage 3. Hypertension-blood pressure controlled, 4. Muscular dystrophy 5. Depression with anxiety 6. Tobacco dependence counseled on cessation, offered nicotine patch for tobacco cravings 7. Obesity with BMI of 35 weight loss advised 8. DVT prophylaxis SC Lovenox Patient Problems: Active and Suspected Problems Unstable angina pectoris due to coronary arteriosclerosis (Acute) Chest pain (Acute) Objective: GENERAL: cooperative HEENT: Atraumatic; moist oral mucosa EYES; Anicteric, Normal Conjunctiva NECK; supple, normal thyroid, RESPIRATORY: Diminished to auscultation bilaterally, CARDIOVASCULAR: Regular S1 S2, EXTREMITIES: No edema, no clubbing, no cyanosis. NEURO: Awake; no lateralizing signs. SKIN: No Rash PSYCH; Normal affect - Physical Exam Vital Signs Temp Pulse Resp BP Pulse Ox 97.3 F L 63 15 100/54 L 98 12/29/18 04:00 12/29/18 06:58 12/29/18 06:58 12/29/18 06:58 12/29/18 06:58 Oxygen Flow Rate (L/min) 2 Oxygen Delivery Method Nasal Cannula Weight: 86.9 kg Body Mass Index (BMI) 35.0 Intake and Output for Last 24 Hours 12/27/18 12/28/18 12/29/18 23:59 23:59 23:59 Intake Total 255 / 255 1836 / 1836 Balance 255 / 255 1836 / 1836 Laboratory Tests Past 24 Hrs 12/28/18 12/29/18 12/29/18 15:51 04:25 04:25 WBC 8.0 RBC 4.33 Hgb 12.5 Hct 37.8 MCV 87.3 MCH 28.9 MCHC 33.1 RDW 12.3 RDW Differential 38.4 Plt Count 258 MPV 10.7 Activated Clotting Time 186 H Sodium 142 Potassium 3.8 Chloride 106 Carbon Dioxide 30.0 Anion Gap 6 BUN 7 Creatinine 0.76 Estim Creat Clear Calc 43.18 Est GFR (MDRD) Af Amer 97 Est GFR (MDRD) Non-Af 80 BUN/Creatinine Ratio 9.2 L Glucose 137 H Calcium 8.5 Triglycerides 131 Cholesterol 170 LDL Cholesterol 100 VLDL Cholesterol 26 HDL Cholesterol 44 POC Glucose 12/29/18 12/28/18 12/28/18 06:44 21:14 17:04 POC Glucose 133 H 307 H 137 H 12/28/18 11:45 POC Glucose 255 H Discharge Diet: Low fat/ Low Cholesterol, 1800 Calorie Control Diet Discharge Activity: Return to Normal Activity Call your doctor if you observe: Shortness of breath, Dizziness, Chest pain, Increased palpitations (irregular heartbeat) Home Medications: Medications to take at Discharge Docusate Sodium [Colace] 100 mg PO BID 05/23/13 Risperidone [Risperdal] 1 mg PO QHS 05/23/13 Citalopram [Celexa] 40 mg PO QHS 07/04/14 Ipratropium/Albuterol Sulfate [Duoneb] 3 ml INHALATION TID PRN PRN 08/24/16 ALPRAZolam [Xanax] 1 mg PO TID PRN PRN 08/25/16 Insulin Glargine,Hum.rec.anlog [Lantus] 32 unit SQ QHS 08/25/16 Insulin Lispro [Humalog] 0 - 200 units SQ TIDCM 08/25/16 Omeprazole [Prilosec] 20 mg PO DAILY 12/27/18 Aspirin [Aspirin EC] 81 mg PO DAILY #90 tablet. 12/29/18 Atorvastatin Calcium [Lipitor] 80 mg PO QHS #90 tablet 12/29/18 Clopidogrel Bisulfate [Plavix] 75 mg PO DAILY #90 tablet 12/29/18 Losartan Potassium [Cozaar] 12.5 mg PO DAILY #90 tablet 12/29/18 Metoprolol Tartrate 12.5 mg PO BID #90 tablet 12/29/18 Following Prescrptions Were Given to Patient: Aspirin [Aspirin EC] 81 mg PO DAILY #90 tablet. Atorvastatin Calcium [Lipitor] 80 mg PO QHS #90 tablet Clopidogrel Bisulfate [Plavix] 75 mg PO DAILY #90 tablet Losartan Potassium [Cozaar] 12.5 mg PO DAILY #90 tablet Metoprolol Tartrate 12.5 mg PO BID #90 tablet Other Amb Orders: Phase II, Outpatient Cardiac Rehab Location: None Selected Primary Care Physician: Mike Richard MD [Primary Care Provider] - Please follow up with your Primary Care Physician in: in 5-7 days Please Follow Up With: Brice Wilcox MD When: in 2-3 weeks Disposition: Home Minutes spent on discharge:: 35 Patient Condition:: Stable Medical Necessity - Tobacco Use Smoking Status: Current every day smoker Tobacco Use: Cigarettes Meaningful Use Info Meaningful Use Diagnoses (Choose all that apply): None applicable Code Visit Inpatient E&M: 89730 Disch Hosp
[2018-12-29] MEDS: Clopidogrel Bisulfate 75 MG Tablet PO (08:13)
[2018-12-29] MEDS: Docusate Sodium 100 MG Capsule PO (08:13)
[2018-12-29] MEDS: Pantoprazole Sodium 20 MG Tablet PO (08:13)
[2018-12-29] MEDS: Losartan Potassium 25 MG Tablet 12.5 MG PO (08:14)
--- NOTE | 2018-12-29 09:46 | PCM.PN.CARD ---
Subjectve: Patient doing very well this morning, no 24-hour events. Telemetry negative. EKG shows normal sinus rhythm, no acute changes. Hemoglobin and creatinine are within normal limits. Right groin is clean/dry/intact without evidence of thrills, bruits hematoma or tenderness. Objective: Vital Signs Temp Pulse Resp BP Pulse Ox 97.5 F L 69 16 115/62 97 12/29/18 08:00 12/29/18 08:00 12/29/18 08:00 12/29/18 08:00 12/29/18 08:00 Oxygen Flow Rate (L/min) 2 Oxygen Delivery Method Room Air Weight: 191 lb 9.307 oz Body Mass Index (BMI) 35.0 Intake and Output for Last 24 Hours 12/27/18 12/28/18 12/29/18 23:59 23:59 23:59 Intake Total 255 / 255 1835 Balance 255 / 255 1835 General: Awake, Alert, Oriented x 3 HEENT: PERRL, EOMI, Sclera Non Icteric Neck: Supple, Good ROM, No Lymph Node Enlargement Lungs: Clear to auscultation Cardiovascular: Regular Rhythm, Normal S1, Normal S2, No Murmurs, No Rubs, No Gallops Vascular: No Carotid Bruits, Normal Femoral Pulses, Normal Radial Pulses, Normal Dorsalis Pedal Pulse, Normal Posterior Tibial Pulses Abdomen: Bowel Sounds Present, Soft, Non Tender, No HSM, No Organomegaly Extremities: No Cyanosis, No Clubbing, No edema Neurological: No Focal Motor or Sensory Deficit 12/29/18 04:25: Sodium 142, Potassium 3.8, Chloride 106, Carbon Dioxide 30.0, Anion Gap 6, BUN 7, Creatinine 0.76, Est GFR (MDRD) Af Amer 97, Est GFR (MDRD) Non-Af 80, BUN/Creatinine Ratio 9.2 L, Glucose 137 H, Calcium 8.5, Triglycerides 131, Cholesterol 170, LDL Cholesterol 100, VLDL Cholesterol 26, HDL Cholesterol 44 12/29/18 04:25: WBC 8.0, RBC 4.33, Hgb 12.5, Hct 37.8, MCV 87.3, MCH 28.9, MCHC 33.1, RDW 12.3, RDW Differential 38.4, Plt Count 258, MPV 10.7 Rhythm: EKG: ECHO: Stress Test: Cardiac Cath: PCI: CT Surgery: Holter monitor: EPS: PPM: CXR: Chest CT Scan: Medical Necessity - Tobacco Use Smoking Status: Current every day smoker Tobacco Use: Cigarettes Assessment/Plan 1. Unstable angina: The patient has new onset substernal chest pressure, radiating to her jaw, with associated severe dyspnea on exertion, shortness of breath superimposed on an abnormal stress test for mid anterior apical hypokinesis and ischemia. Patient underwent left heart catheterization yesterday which showed complex bifurcating LAD and diagonal stenoses. She underwent successful angioplasty and drug-eluting stenting to her ostial diagonal and mid LAD with an excellent result. Advised the patient that she must take her baby aspirin and Plavix, and to discontinue all tobacco products. Arrangements have been made for her entire medical supply to be paid for per month at $6.50 which is approximately the same [place] as a pack of cigarettes. Patient may be discharged home and follow-up with Dr. Wilcox going forward. No additional angioplasty or stenting is required at this time. 2. Hyperlipidemia: LDL is 109 and HDL is 47. Continue statin based medications. Repeat lipids in 6 weeks time. 3. Tobacco abuse: I strongly recommended continuation of all tobacco products. Patient already has evidence of emphysema and requires O2 therapy at night. 4. Thank you very much for the opportunity to precipitate cardiac care of your patient. Patient may be discharged home. Code Visit Inpatient E&M: 54306 Subs Hosp L2
--- NOTE | 2018-12-29 09:46 | CASEMGMT ---
RN MUSTAPHA BUSINESS CONTINUITY PLANNER CM to room to meet with patient for initial transition planning/care coordination assessment. HARLEEN LUCIANO introduced self and role at [facility]. Pt voices understanding and consents to assessment at this time. Pt resting in bed in no distress at this time. Pt is A/O at this time and answers all questions appropriately. Care providers, pharmacy, and demographics verified at this time. PCP: Dr Mike Richard Specialists: siena Preferred Pharmacy: [facility] Insurance: [facility] Prescription Benefit: Yes. Per HARLEEN Alejo, pt voiced concerns of cost of her new medications. Call placed to [facility] and [place] check completed. Per pharmacist, total cost for all 5 new medications (Plavix, ASA, Metoprolol, Cozaar, and Lipitor) is $6.50. Pt made aware. She states I don't even have that much money, but I will borrow it from my Aunt. Discussed importance of taking medications. Pt voiced understanding and confirmed she would get the medications and take them as prescribed. Pt states is interested in talking with for financial resources. SUZANNE Byrd, notifed and made aware pt is discharging this AM. Living Will/HPOA: Pt does not currently have LW/HCPOA and declines info at this time. Pt made aware that she can contact as an out-pt and make appt in the future if she decides she would like to talk with someone about this or would like to utilize [facility] social work for advanced directive completion. Given Geothermal Plant Manager Rac card with information and contact number. Pt expresses understanding. LNOK: 2 sons: Raz who lives in [place], and Murtaza who lives in [place]. ALBA Gong listed on demographics as personnel training officer per pt request. Living Arrangements: Lives alone in one-story appt. One step to enter. States is independent with all ADL's and home mgmt tasks. Transportation: Pt states drives self and states no transportation concerns at this time. States her car is here @ [facility] and she was planning on driving home on discharge. Made aware of driving restrictions after heart cath. Pt states she will call her DILFarideh, to take her home. DME: has the following DME: Nebulizer and Home O2 through [employer]. States wears 2L/M during when sleeping. Has portability and concentrator. Has a glucometer which she states works properly and she has all supplies for it. Pt states no need for further DME at this time. HHC/SNF: Hx of SNF @ [facility]. Denies hx HHC. Denies need for HHC and no needs identified. Pt wishes to return home and states has no concerns with going home at time of discharge. Pt states she is a smoker but plans to quit. CM to follow for any discharge planning/needs. Pt voices no further concerns/needs at this time. Advised pt to ask for CM if any further questions/concerns/needs arise. Voices understanding. PLAN: Home. SW consult for financial concerns. Sim CHAWLAN RN CM
--- NOTE | 2018-12-29 10:00 | EKG12_ITS ---
Test Reason : AM Blood Pressure : / mmHG Vent. Rate : 064 BPM Atrial Rate : 064 BPM P-R Int : 164 ms QRS Dur : 082 ms QT Int : 436 ms P-R-T Axes : 077 034 063 degrees QTc Int : 449 ms Normal sinus rhythm Nonspecific T wave abnormality Abnormal ECG When compared with ECG of 28-DEC-2018 14:06, MANUAL COMPARISON REQUIRED, DATA IS UNCONFIRMED Confirmed by ANABELLE GARCIA ([id number]), sound editor CHEPE STALLWORTH ([id number]) on 01/04/2019 12:57:04 PM Referred By: Confirmed By:MARKUS GARCIA
--- NOTE | 2018-12-29 10:02 | CASEMGMT ---
Patient has financial concerns. Her medications from discharge total $6 and she does not even have that so she is borrowing it. SW gave patient resources on People to People, help with Medicare expenses, help with Medicare D expenses, [employer], [employer]'s Getting Ahead Program, and Meals on Wheels. However patient declined Meals on Wheels stating They can keep their meals. SW told her they can possibly work something out to get her meals by donation. She still did not want it. Rochelle NEUMANN MAINTENANCE CRAFTSMAN
--- NOTE | 2018-12-29 10:30 | NURSING ---
spoke w/dr ribera to verify metoprolol dc order. pt was not on metoprolol here but it was listed to be taken on d/c. per dr ribera pt needs to start this med at home even though she was not on it here. pt aware of new med start.
--- NOTE | 2018-12-29 10:32 | CRPHASE1 ---
Patient Communication PHII Cardiac Rehab Discussed with Patient:: Yes Guide to Cardiac Rehab Given to Patient:: Yes Cardiac Rehab Facility Choice List Given to Patient:: Yes - [facility] Choice Program [facility] CR PHII:: Communication Given to CR, Refer to [facility] Physician Gynecologist:: Brice Wilcox PCP:: Mike Richard Refer Phase II Cardiac Rehab:: Yes Sessions:: 36 sessions - 3 days/wk, 12 weeks Phase I Charge:: Level I - Education Risk Factors/Lifestyle Smoking Status: Current every day smoker Packs Smoked per Day: 1 - 40 + years Hx Hypertension: No Hx Diabetes Mellitus Type 2: Yes - 11 years Hx Dyslipidemia: Yes Hx Obesity: Yes Height: 5 ft 2 in Weight:: 191 lb BMI: 34.9 Post-Menopausal: Yes Risk Factor for Sedentary Lifestyle: Highest Risk - states has muscular dystrophy Family History: Heart Disease Laboratory Values: Cardiac Rehab Phase I Labs Triglycerides 131 mg/dL (-199) 12/29/18 04:25 Cholesterol 170 mg/dL (200) 12/29/18 04:25 LDL Cholesterol 100 mg/dL (0-130) 12/29/18 04:25 HDL Cholesterol 44 mg/dL (40-) 12/29/18 04:25 Phase I Education Given On:: [place], Nutrition, Antiplatelet medication, CHF, Smoking cessation, Diabetes - Type II Issues Affecting Care:: Physical - muscular dystrophy, decreased mobility Knowledge of Condition:: Yes Learning Preferences: Verbal, Written, Audio/Visual, Demonstration Medical/Surgical History Diabetes Type II:: Yes Other Medical/Surgical Issues:: muscular dystrophy Cardiac Rehabilitation Info Cardiac Rehabilitation Program Information: Cardiac Rehabilitation is important for patients like you who are recovering from a heart problem. Cardiac rehabilitation programs are recognized as integral to the continued care of the patient with coronary heart disease. The cardiac rehabilitation program is designed to optimize a patient's physical, psychological, and social functioning. Health family day care provider work in cardiac rehabilitation programs and assist you with getting the treatments you need to get stronger and healthier - like exercise, healthy eating habits, and medications. Cardiac rehabilitation has been show to help people with heart problems live longer and have better life enjoyment than people who do not go to cardiac rehabilitation. Please contact the Cardiac Rehabilitation Program at [facility] at in two weeks if you have not heard from them.
--- NOTE | 2018-12-29 10:36 | CRPHASE1_ITS ---
Patient Communication PHII Cardiac Rehab Discussed with Patient:: Yes Guide to Cardiac Rehab Given to Patient:: Yes Cardiac Rehab Facility Choice List Given to Patient:: Yes - [facility] Choice Program [facility] CR PHII:: Communication Given to CR, Refer to [facility] Emergency Response Technician:: Brice Wilcox PCP:: Mike Richard Refer Phase II Cardiac Rehab:: Yes Sessions:: 36 sessions - 3 days/wk, 12 weeks Phase I Charge:: Level I - Education Risk Factors/Lifestyle Smoking Status: Current every day smoker Packs Smoked per Day: 1 - 40 + years Hx Hypertension: No Hx Diabetes Mellitus Type 2: Yes - 11 years Hx Dyslipidemia: Yes Hx Obesity: Yes Height: 5 ft 2 in Weight:: 191 lb BMI: 34.9 Post-Menopausal: Yes Risk Factor for Sedentary Lifestyle: Highest Risk - states has muscular dystrophy Family History: Heart Disease Laboratory Values: Cardiac Rehab Phase I Labs Triglycerides 131 mg/dL (-199) 12/29/18 04:25 Cholesterol 170 mg/dL (200) 12/29/18 04:25 LDL Cholesterol 100 mg/dL (0-130) 12/29/18 04:25 HDL Cholesterol 44 mg/dL (40-) 12/29/18 04:25 Phase I Education Given On:: [place], Nutrition, Antiplatelet medication, CHF, Smoking cessation, Diabetes - Type II Issues Affecting Care:: Physical - muscular dystrophy, decreased mobility Knowledge of Condition:: Yes Learning Preferences: Verbal, Written, Audio/Visual, Demonstration Medical/Surgical History Diabetes Type II:: Yes Other Medical/Surgical Issues:: muscular dystrophy Cardiac Rehabilitation Info Cardiac Rehabilitation Program Information: Cardiac Rehabilitation is important for patients like you who are recovering from a heart problem. Cardiac rehabilitation programs are recognized as integral to the continued care of the patient with coronary heart disease. The cardiac rehabilitation program is designed to optimize a patient's physical, psychological, and social functioning. Health wound care technician work in cardiac rehabilitation programs and assist you with getting the treatments you need to get stronger and healthier - like exercise, healthy eating habits, and medications. Cardiac rehabilitation has been show to help people with heart problems live longer and have better life enjoyment than people who do not go to cardiac rehabilitation. Please contact the Cardiac Rehabilitation Program at [facility] at in two weeks if you have not heard from them.
--- NOTE | 2018-12-29 10:40 | CRPH1.INSTRU ---
General Education CAD and cardiac anatomy and function:: Patient communicates acknowledgment, Needs reinforcement Explanation of diagnoses and procedures:: Patient communicates acknowledgment, Needs reinforcement Sign/Symptoms of [place]:: Patient communicates acknowledgment, Needs reinforcement Antiplatelet therapy: Patient communicates acknowledgment, Needs reinforcement Proper use of NTG-SL: Patient communicates acknowledgment, Needs reinforcement Emergency procedures and activation of EMS: Patient communicates acknowledgment, Needs reinforcement Compliance of all prescribed medications: Patient communicates acknowledgment, Needs reinforcement Smoking Patient Nicotine/Smoking Risk Factors Are:: Cigarettes Recommendations Include:: Smoking cessation strategies/Smoking packet, Second-hand smoke recommendation, Participation in a smoking cessation program Nicotine/Smoking Response Code:: Patient communicates acknowledgment, Needs reinforcement Dyslipidemia Patient Dyslipidemia Risk Factors Are:: Total Cholesterol, Triglycerides, HDL, LDL Recommendations Include:: Lipid profile provided, Reviewed NCEP/ATP guidelines, Therapeutic Lifestyle Change dietary guidelines Dyslipidemia Response Code:: Patient communicates acknowledgment, Needs reinforcement Overweight/Obesity Patient Overweight/Obesity Risk Factors Are:: Obesity - > or = 30 Recommendations Include:: Weight loss of 5-10%, Reduced calorie diet, Exercise 5-7 times/week Overweight/Obesity:: Patient communicates acknowledgment, Needs reinforcement Hypertension Patient Hypertension Risk Factors Are:: No documented hx of HTN Hypertension:: Not instructed Heart Disease Patient Heart Disease Risk Factors Are:: Family history of heart disease < 65 years old Recommendations Include:: Educated family members of their risk, Educated family members of importance of prevention of heart disease Heart Disease Response Code:: Patient communicates acknowledgment, Needs reinforcement Diabetes Patient Diabetes Risk Factors Are:: Elevated blood sugars Recommendations Include:: Maintain fasting blood sugars 70-110 md/dL, Maintain HgbA1c of 6% or less, Monitor blood sugar as prescribed, Diabetic dietary guidelines, Decrease/maintain body weight Diabetes:: Patient communicates acknowledgment, Needs reinforcement Metabolic Syndrome Patient Metabolic Syndrome Risk Factors Are [3 of 5]:: Fasting blood sugar > 100 mg/dL, Waist circumference > 35 [female] or 40 [male], Low HDL <40 [male] or < 50 [female] Recommendations Include:: Patient is diabetic Metabolic Syndrome Response Code:: Patient communicates acknowledgment, Needs reinforcement Sedentary Patient Sedentary Risk Factors Are:: Lack of regular exercise Recommendations Include:: Aerobic exercise 5-7 times/week for 20-30 minutes continuously, Benefits of regular exercise, Discussed home walking program, Monitored Outpatient Cardiac Rehab Sedentary Response Code:: Patient communicates acknowledgment, Needs reinforcement Stress Patient Stress Risk Factors Are:: Patient denies stress as a risk factor Stress Response Code:: Not instructed
--- NOTE | 2018-12-29 10:45 | CRPH1.INST_ITS ---
General Education CAD and cardiac anatomy and function:: Patient communicates acknowledgment, Needs reinforcement Explanation of diagnoses and procedures:: Patient communicates acknowledgment, Needs reinforcement Sign/Symptoms of [place]:: Patient communicates acknowledgment, Needs reinforcement Antiplatelet therapy: Patient communicates acknowledgment, Needs reinforcement Proper use of NTG-SL: Patient communicates acknowledgment, Needs reinforcement Emergency procedures and activation of EMS: Patient communicates acknowledgment, Needs reinforcement Compliance of all prescribed medications: Patient communicates acknowledgment, Needs reinforcement Smoking Patient Nicotine/Smoking Risk Factors Are:: Cigarettes Recommendations Include:: Smoking cessation strategies/Smoking packet, Second- hand smoke recommendation, Participation in a smoking cessation program Nicotine/Smoking Response Code:: Patient communicates acknowledgment, Needs reinforcement Dyslipidemia Patient Dyslipidemia Risk Factors Are:: Total Cholesterol, Triglycerides, HDL, LDL Recommendations Include:: Lipid profile provided, Reviewed NCEP/ATP guidelines, Therapeutic Lifestyle Change dietary guidelines Dyslipidemia Response Code:: Patient communicates acknowledgment, Needs reinforcement Overweight/Obesity Patient Overweight/Obesity Risk Factors Are:: Obesity - > or = 30 Recommendations Include:: Weight loss of 5-10%, Reduced calorie diet, Exercise 5-7 times/week Overweight/Obesity:: Patient communicates acknowledgment, Needs reinforcement Hypertension Patient Hypertension Risk Factors Are:: No documented hx of HTN Hypertension:: Not instructed Heart Disease Patient Heart Disease Risk Factors Are:: Family history of heart disease < 65 years old Recommendations Include:: Educated family members of their risk, Educated family members of importance of prevention of heart disease Heart Disease Response Code:: Patient communicates acknowledgment, Needs reinforcement Diabetes Patient Diabetes Risk Factors Are:: Elevated blood sugars Recommendations Include:: Maintain fasting blood sugars 70-110 md/dL, Maintain HgbA1c of 6% or less, Monitor blood sugar as prescribed, Diabetic dietary guidelines, Decrease/maintain body weight Diabetes:: Patient communicates acknowledgment, Needs reinforcement Metabolic Syndrome Patient Metabolic Syndrome Risk Factors Are [3 of 5]:: Fasting blood sugar > 100 mg/dL, Waist circumference > 35 [female] or 40 [male], Low HDL <40 [male] or < 50 [female] Recommendations Include:: Patient is diabetic Metabolic Syndrome Response Code:: Patient communicates acknowledgment, Needs reinforcement Sedentary Patient Sedentary Risk Factors Are:: Lack of regular exercise Recommendations Include:: Aerobic exercise 5-7 times/week for 20-30 minutes continuously, Benefits of regular exercise, Discussed home walking program, Monitored Outpatient Cardiac Rehab Sedentary Response Code:: Patient communicates acknowledgment, Needs reinforcement Stress Patient Stress Risk Factors Are:: Patient denies stress as a risk factor Stress Response Code:: Not instructed
--- NOTE | 2018-12-30 13:45 | CASEMGMT ---
HARLEEN LUCIANO Discharge Follow-Up Phone Call. Amaris:José Miguel Strata: 3 Discharge Date: 12/29/18 Adm Dx: CP Call to pt to inquire about how she has been doing since being discharged from the hospital. Pt states she is doing real good. She states she did last picker all of her new prescriptions and has no questions about the medications or discharge instructions. Pt states she is aware of the appt made for her with Mike Wilcox's office, but was not aware she was supposed to make an appt with her PCP. She stated she would make an appt with him. Pt stated, I guess I should look over those instructions. Pt did inquire about information on the Smoking Cessation Progam and the Diabetic Clinic. Information given and provided pt with phone numbers to both. Pt made aware to talk to her PCP to have him send referral for the Diabetic Clinic. She denies having any further questions or concerns. HARLEEN LUCIANO thanked pt for choosing [facility]. Sim STORY RN, CM
== END 2018-12-29 10:40 | disposition home or self-care (01) | DRG 247 ==
LOC: ED 17:12 → PCU 18:05 → ICU 12-29 06:33 → PCU 12-29 07:16 → ICU 12-29 07:17
PROVIDERS: Internal Medicine Cardiovascular Disease; Admitting Provider Internal Medicine; Emergency Provider Emergency Medicine; Family Provider Family Medicine; PCP Family Medicine; Visit Provider Internal Medicine
DX: I25.110 Atherosclerotic heart disease of native coronary artery with unstable angina pectoris (principal); J44.1 Chronic obstructive pulmonary disease with (acute) exacerbation; J96.10 Chronic respiratory failure, unspecified whether with hypoxia or hypercapnia; G71.00 Muscular dystrophy, unspecified; E03.9 Hypothyroidism, unspecified; Z99.81 Dependence on supplemental oxygen; Z79.4 Long term (current) use of insulin; Z79.51 Long term (current) use of inhaled steroids; Z79.899 Other long term (current) drug therapy; K22.70 Barrett's esophagus without dysplasia; E11.65 Type 2 diabetes mellitus with hyperglycemia; I10 Essential (primary) hypertension; F41.8 Other specified anxiety disorders; Z68.36 Body mass index [BMI] 36.0-36.9, adult; E66.9 Obesity, unspecified; E78.5 Hyperlipidemia, unspecified; F17.210 Nicotine dependence, cigarettes, uncomplicated
CPT/HCPCS: 36415; 71045; 78452; 80048; 80053; 80061; 82962; 83690; 84443; 84484; 85025; 85027; 85347; 85379; 85610; 85730; 92928; 92929; 93005; 93017; 93306; 93458; 94640; 99251; 99285; 99406; A9500; J7030; J7040; Q9957; Q9967; A4216; C1725; C1769; C1874; C1887; C1894; C8929; C9600; C9601; G0463; J2785

== ENCOUNTER 2019-01-01 14:43 | Emergency (ER) | payer MEDICARE, SELFPAY ==
[2018-12-27 18:37] VITALS: BMI 35.0
[2018-12-29 10:40] VITALS: BMI 34.9
[2019-01-01 14:44] VITALS: BP 181/78; PULSE 60; RESP 22; TEMP 36.5; O2SAT 99; BMI 36.8
--- NOTE | 2019-01-01 15:29 | EKG12_ITS ---
Test Reason : CP Blood Pressure : / mmHG Vent. Rate : 059 BPM Atrial Rate : 059 BPM P-R Int : 166 ms QRS Dur : 082 ms QT Int : 428 ms P-R-T Axes : 001 036 053 degrees QTc Int : 423 ms Sinus bradycardia Otherwise normal ECG Confirmed by RAMIREZ MELVIN, ARPITA ([id number]), editor publications JAVIER COLBY ([id number]) on 01/04/2019 9:11:26 AM Referred By: MORA Confirmed By:ARPITA GUZMÁN MD
--- NOTE | 2019-01-01 15:30 | RAD_ITS ---
STUDY: X-RAY CHEST REASON FOR EXAM: Female, 68 years old. Dizziness TECHNIQUE: AP COMPARISON: 12/27/2018 FINDINGS: EKG leads project over the chest. Pleural and parenchymal fibrotic scarring in the left lung base stable since the prior study. There is no demonstrated pleural abnormality. Normal size heart. Normal mediastinum and wallace. Normal visualized pulmonary arteries. There is atherosclerotic tortuosity of the aortic arch and descending thoracic aorta. No acute bony process. There is no demonstrated abnormality of the visualized soft tissue structures of the upper abdomen. RAD/Chest 1 View (Portable) IMPRESSION: Stable, nonacute portable x-ray examination of the chest. Left basilar pleural and parenchymal fibrotic scarring. Electronically Signed: Yaakov English MD at 15:49 EDT , Service support ,
--- NOTE | 2019-01-01 15:34 | ED.DCSUM_ITS ---
History of Present Illness Chief Complaint: Dizziness Detail of Chief Complaint: and chest pain Informant: Patient Onset: Today Activity at onset: Rest Timing: Intermittent Quality: Pain Location: Substernal Current Severity: Gone Maximum Severity: Moderate Worsened By: Nothing Relieved By: Nothing Associated Symptoms: Dyspnea, Cough - chronic, unchanged, Lightheadedness. Negative for: Nausea, Vomiting, Diaphoresis, Fever, Acid Reflux, Palpitations Narrative: Patient states she was just discharged from the hospital 3 days ago after getting 2 cardiac stents for the first time, and is on new medications. States she was sitting in a resting today, and she suddenly started feeling dizzy. She qualifies that by saying that she felt like she was lightheaded and going to pass out and also felt spinning. She denies feeling worse when she moves her head or changes position except for the fact that when she stands up things feel worse. That was followed by several episodes of chest discomfort that lasted several minutes at a time. She states that this was similar but less severe to the chest discomfort that she had before her stents were placed. A little more short of breath than usual at that time. Additionally she feels bloated but has no nausea, vomiting, diarrhea. No abdominal pain. - Past Medical History (1) Anxiety Status: Chronic (2) Atherosclerotic heart disease of [place] coronary artery without angina pectoris Status: Chronic Comment: Double vessel CAD of the LAD and DIAG#2 Successful PTCA/RACHEL ostial DIAG with a 2.25 x 12 Promus Synergy stent; Successful PTCA/RACHEL mid LAD with a 2.5 x 20 Promus Synergy. Per ANGELO @ [facility] 12/08/2018 (3) [place] esophagus Status: Chronic (4) COPD (chronic obstructive pulmonary disease) Status: Chronic (5) Chronic respiratory failure Status: Chronic Comment: On home oxygen (6) Depression Status: Chronic (7) Hypothyroidism Status: Chronic (8) Muscular dystrophy Status: Chronic (9) Postprandial bloating Status: Chronic Past Medical History - Allergies and Home Meds Allergies/Adverse Reactions: Allergies amoxicillin [Amoxicillin] Allergy (Intermediate, Verified 01/01/19 14:50) Rash gabapentin [From Neurontin] Allergy (Verified 01/01/19 14:50) Shortness of breath levofloxacin [From Levaquin] Allergy (Verified 01/01/19 14:50) Hives is allergic to the red dye in the pill form, states she is fine with the iv form. pseudoephedrine HCl [From Sudafed] Allergy (Verified 01/01/19 14:50) Shortness of breath codeine Adverse Reaction (Verified 01/01/19 14:50) HEADACHE Primary Care Physician: Mike Richard MD [Primary Care Provider] - Surgical History: angioplasty - With coronary stent x2, cholecystectomy Smoking Status: Current every day smoker Drugs: None - Family History Sibling Family History: Reports: Heart Disease - Brother of massive [place] at age 50 Maternal Family History: Reports: Heart Disease Paternal Family History: Reports: No pertinent history Review of Systems General: Reports: Malaise. Denies: Chills, Fever, Sweats Eyes: Denies: Visual changes - bilaterally, Diplopia ENT: Denies: Rhinorrhea, Sore throat Cardiovascular: Reports: Chest pain. Denies: Palpitations, Heart racing Respiratory: Reports: Dyspnea, Cough, Dyspnea on exertion. Denies: Sputum, Orthopnea Gastrointestinal: Denies: Abdominal pain, Nausea, Vomiting, Diarrhea, Melena, Hematochezia Genitourinary: Denies: Dysuria, Hematuria, Frequency Musculoskeletal: Denies: Back pain, Swelling, Extremity Pain Skin: Denies: Rash, Wounds Neurological: Denies: Headache, Weakness, Numbness Physical Exam Vital Signs/Narrative: Vital Signs Temp Pulse Resp BP Pulse Ox 01/01/19 14:44 97.7 F L 60 22 H 181/78 H 99 Inital Vital Signs reviewed: Yes General: Well nourished, Well developed, No Acute Distress Head: Normocephalic, Atraumatic Eyes: Perrl, EOMI ENT: Moist mucous membranes, No rhinorrhea Neck: Supple, Nontender, No JVD Cardiovascular: Regular rate, Regular rhythm, No murmurs, Normal S1, Normal S2 Respiratory: No distress, Chest nontender, Wheezing, Diminished Abdomen: Soft - Mildly distended, Nontender, Normal bowel sounds Back: Nontender, Normal Inspection Extremities: Nontender, No edema. Negative for: Calf Tenderness Skin: Normal color, No rash, No Trauma Neurological: Alert, Oriented x3, Cranial nerves II-XII grossly intact, Normal Strength, Normal Sensation Psychological: Normal affect, Normal Mood Diagnostic/Tx/Re-eval Impressions Chest X-Ray 01/01/19 15:30 IMPRESSION: Stable, nonacute portable x-ray examination of the chest. Left basilar pleural and parenchymal fibrotic scarring. Electronically Signed: Yaakov English MD at 15:49 EDT , Service support , 01/01/19 15:30 Chest 1 View (Portable) [RAD] Stat Laboratory Tests 01/01/19 01/01/19 01/01/19 Range/Units 17:55 14:50 14:50 WBC 13.1 H (4.4-11.0) K/mm3 RBC 4.45 (4.2-5.4) M/mm3 Hgb 12.8 (12.0-15.0) g/dl Hct 38.2 (37-47) % MCV 85.8 (81-99) fL MCH 28.8 (27.0-32.0) pg MCHC 33.5 (32-36) g/gl RDW 12.2 (11.6-14.6) % RDW Differential 38.2 (35.1-43.9) fl Plt Count 302 (150-450) K/mm3 MPV 10.9 (6.2-12.0) fl Immature Gran % (Auto) 0.200 (0.0-0.9) % Neut % (Auto) 77.3 H (47-70) % Lymph % (Auto) 15.5 L (19-41) % [place] % (Auto) 5.0 (0-10) % Eos % (Auto) 1.5 (0-5) % Baso % (Auto) 0.5 (0-1) % Absolute Neuts (auto) 10.1 H (2.0-7.7) X10^3/uL Absolute Lymphs (auto) 2.02 (0.83-4.51) X10^3/ul Total Counted Not Reportable Sodium 129 L (136-145) mmol/L Potassium 3.7 (3.5-5.1) mmol/L Chloride 94 L (98-107) mmol/L Carbon Dioxide 28.0 (21.0-32.0) mmol/L Anion Gap 7 (5-15) BUN 6 L (7-18) mg/dL Creatinine 0.84 (0.55-1.02) mg/dL Estim Creat Clear Calc 51.40 ml/min Est GFR (MDRD) Af Amer 86 (>60) mL/min Est GFR (MDRD) Non-Af 71 (>60) mL/min BUN/Creatinine Ratio 7.1 L (10-20) RATIO Glucose 234 H (74-106) mg/dL Calcium 8.6 (8.5-10.1) mg/dL Troponin I < 0.015 < 0.015 (<0.045) ng/mL - Rhythm Strip Rhythm Strip: Sinus Rhythm Rate: 60 Ectopy: None - EKG Initial EKG Interpretation: Sinus Rhythm, No Acute Injury Pattern, Non-Specific ST Changes - T wave flattening in aVL, 3, aVF, without inversions Prior: Unchanged Treatment: - - IVFB Repeat Eval: Pain Free - Medical Decision Making With a recurrent chest discomfort, cardiac work-up was obtained but there is no sign of any acute injury. Her troponin is negative. Labs are otherwise unremarkable except for a sodium of 129. After IV fluids, and a nebulizer treatment for her dyspnea, she feels much better. Her dizziness is gone, her breathing is much better. I offered admission but she is adamant and states she will sign out AGAINST MEDICAL ADVICE if she has to but is not stained. I discussed with Dr. Ibarra, he advises to at least check a delta 3-hour repeat troponin. If negative, he would be okay with her being discharged home to follow-up closely. Her repeat troponin is negative. ED Disposition - Plan for ED Patient: Disposition: Home or Assisted Living Diagnosis: Chest pain, unspecified, Dizziness Instructions: ED Dizziness UKO, ED Chest Pain Atypical Unkn Cause Referrals: Mike Richard MD [Primary Care Provider] - Brice Wilcox MD [STAFF PHYSICIAN] - 2 Days (call for appt)
[2019-01-01 15:36] VITALS: PULSE 60; RESP 17
[2019-01-01] MEDS: Ipratropium/Albuterol Sulfate 3 ML AMPUL.NEB INHALATION (15:36)
[2019-01-01] MEDS: 0.9% Normal Saline 1,000 ML 1000 ML IV (15:37)
[2019-01-01 15:40] VITALS: BP 144/98; PULSE 65; RESP 26; O2SAT 98
[2019-01-01 15:41] LABS: Absolute Lymphocyte Count 2.02 X10^3/ul (0.83-4.51); Absolute Neutrophil Count 10.1 X10^3/uL (2.0-7.7); Basophil# 0.06 X10^3/uL; Basophil% 0.5 % (0-1); Eosinophils% 1.5 % (0-5); Hematocrit 38.2 % (37-47); Hemoglobin 12.8 g/dl (12.0-15.0); Lymphocyte # 2.02 X10^3/ul (4.0); Lymphocyte % 15.5 % (19-41); Mean Corp Hgb Conc 33.5 g/gl (32-36); Mean Corpuscular Hgb 28.8 pg (27.0-32.0); Mean Corpuscular Volume 85.8 fL (81-99); Mean Platelet Vol. 10.9 fl (6.2-12.0); Monocyte# 0.66 X10^3/uL; Neutrophil % 77.3 % (47-70); Platelet Count 302 K/mm3 (150-450); RBC Distribution Width CV 12.2 % (11.6-14.6); RBC Distribution Width SD 38.2 fl (35.1-43.9); Red Blood Count 4.45 M/mm3 (4.2-5.4); White Blood Count 13.1 K/mm3 (4.4-11.0)
[2019-01-01 15:44] LABS: POSITIVE COUNT NO; POSITIVE DIFFERENTIAL NO; POSITIVE MORPHOLOGY NO
[2019-01-01 15:53] LABS: Anion Gap 7 (5-15); BUN 6 mg/dL (7-18); BUN/Creat Ratio 7.1 RATIO (10-20); Calcium,Total 8.6 mg/dL (8.5-10.1); Chloride 94 mmol/L (98-107); Creatinine, Serum 0.84 mg/dL (0.55-1.02); EST Glomerular Filtration Rate 71 mL/min (>60); Est Glom Filt Rate - Afr Amer 86 mL/min (>60); Glucose 234 mg/dL (74-106); Potassium 3.7 mmol/L (3.5-5.1); Sodium Level 129 mmol/L (136-145)
[2019-01-01 17:05] VITALS: BP 134/69; PULSE 63; RESP 25
[2019-01-01 18:05] VITALS: BP 174/83; PULSE 66; RESP 21
[2019-01-01 18:50] VITALS: BP 105/79; PULSE 65; RESP 19
== END 2019-01-01 18:51 | disposition home or self-care (01) ==
PROVIDERS: Emergency Provider Emergency Medicine; Family Provider Family Medicine; PCP Family Medicine
DX: R07.9 Chest pain, unspecified (principal); R42 Dizziness and giddiness; I25.10 Atherosclerotic heart disease of native coronary artery without angina pectoris; J44.9 Chronic obstructive pulmonary disease, unspecified; J96.10 Chronic respiratory failure, unspecified whether with hypoxia or hypercapnia; F17.200 Nicotine dependence, unspecified, uncomplicated; Z99.81 Dependence on supplemental oxygen; F41.9 Anxiety disorder, unspecified; F32.9 Major depressive disorder, single episode, unspecified; G71.00 Muscular dystrophy, unspecified; Z79.4 Long term (current) use of insulin; Z79.82 Long term (current) use of aspirin; Z79.02 Long term (current) use of antithrombotics/antiplatelets; Z79.899 Other long term (current) drug therapy
CPT/HCPCS: 36415; 71045; 80048; 84484; 85025; 93005; 94640; 96360; 96361; 99284; J7030; A4216

== ENCOUNTER 2019-04-15 12:19 | Emergency (ER) | payer MEDICARE, SELFPAY ==
[2018-12-29 10:40] VITALS: BMI 34.9
[2019-01-12 14:24] VITALS: BMI 35.4
[2019-04-15 12:20] VITALS: BP 160/82; PULSE 102; RESP 24; TEMP 36.9; O2SAT 90; BMI 32.4
--- NOTE | 2019-04-15 12:34 | RAD_ITS ---
STUDY: X-RAY CHEST REASON FOR EXAM: Female, 68 years old. Shortness of breath TECHNIQUE: Single AP portable view of the chest. COMPARISON: January 01, 2019 May 06, 2018 chest x-ray FINDINGS: Stable volume loss in the left chest with prominent cardiac fat pad. There is persistent clear appearance of the right lung. There is no demonstrated pleural abnormality. Normal size heart. Normal mediastinum and wallace. Normal visualized pulmonary arteries. There is atherosclerotic calcification of the aortic arch with tortuosity. There is levoscoliosis. Normal visualized ribs, clavicles, and shoulders. There is no demonstrated abnormality of the visualized soft tissue structures of the upper abdomen. RAD/Chest 1 View (Portable) IMPRESSION: Stable chest. No visualized acute focal infiltrate. Chronic appearing volume loss left lung. Electronically Signed: Celsa Aaron MD at 13:03 EDT Tel , Service support ,
--- NOTE | 2019-04-15 12:34 | EKG12_ITS ---
Test Reason : DYSRHYTHMIA Blood Pressure : / mmHG Vent. Rate : 081 BPM Atrial Rate : 081 BPM P-R Int : 146 ms QRS Dur : 076 ms QT Int : 386 ms P-R-T Axes : 080 029 056 degrees QTc Int : 448 ms Normal sinus rhythm Normal ECG Confirmed by BENJAMIN EDGAR ([id number]), supervising editor trailer CHEPE STALLWORTH ([id number]) on 04/24/2019 2:52:17 PM Referred By: SAVANNAH Confirmed By:BENJAMIN EDGAR
[2019-04-15 12:51] VITALS: PULSE 76; RESP 26
[2019-04-15] MEDS: Ipratropium/Albuterol Sulfate 3 ML AMPUL.NEB INHALATION (12:51)
[2019-04-15 12:54] LABS: Absolute Lymphocyte Count 1.02 X10^3/uL (0.83-4.51); Absolute Neutrophil Count 6.6 X10^3/uL (2.0-7.7); Basophil# 0.06 X10^3/uL; Basophil% 0.7 % (0-1); Eosinophil# 0.14 X10^3/uL; Eosinophils% 1.7 % (0-5); Hematocrit 42.5 % (37-47); Hemoglobin 14.1 g/dL (12.0-15.0); Lymphocyte # 1.02 X10^3/ul (4.0); Lymphocyte % 12.3 % (19-41); Mean Corp Hgb Conc 33.2 g/dL (32-36); Mean Corpuscular Hgb 29.1 pg (27.0-32.0); Mean Corpuscular Volume 87.8 fL (81-99); Mean Platelet Vol. 11.6 fl (6.2-12.0); Monocyte# 0.43 X10^3/uL; Monocyte% 5.2 % (0-10); NRBC Flagged by Analyzer 0 % (0-5); Neutrophil # 6.63 X10^3/uL (2.7-7.7); Neutrophil % 79.7 % (47-70); Platelet Count 264 K/mm3 (150-450); RBC Distribution Width CV 11.9 % (11.6-14.6); RBC Distribution Width SD 38.3 fl (35.1-43.9); Red Blood Count 4.84 M/mm3 (4.2-5.4); White Blood Count 8.3 K/mm3 (4.4-11.0)
--- NOTE | 2019-04-15 12:56 | ED.VIS.GEN ---
History of Present Illness Chief Complaint: Shortness of Breath Informant: Patient Onset: Month(s) Current Severity: Mild Narrative: Patient presents complaining of cough and shortness of breath that she is had for weeks, she is completed doxycycline and azithromycin antibiotics. Patient indicates has history of chronic shortness of breath chronic coughing, chronic home O2 2 L therapy also uses hand-held nebulizers and And metered-dose inhalers, she recently completed a dose of antibiotics as above, she seen by Dr. Nuno but has not seen him recently as her condition is been stable, She indicates she is persisted in coughing but again indicates she has chronic cough she presents asking that somehow her chronic cough be addressed, she denies chest pain has history of 2 cardiac stents, no edema no orthopnea or PND otherwise at home she is been doing well Past Medical History - Allergies and Home Meds Allergies/Adverse Reactions: Allergies amoxicillin [Amoxicillin] Allergy (Intermediate, Verified 04/15/19 12:20) Rash gabapentin [From Neurontin] Allergy (Verified 04/15/19 12:20) Shortness of breath levofloxacin [From Levaquin] Allergy (Verified 04/15/19 12:20) Hives is allergic to the red dye in the pill form, states she is fine with the iv form. pseudoephedrine HCl [From Sudafed] Allergy (Verified 04/15/19 12:20) Shortness of breath codeine Adverse Reaction (Verified 04/15/19 12:20) HEADACHE Primary Care Physician: Mike Richard MD [Primary Care Provider] - Past Medical History: - - COPD 2 cardiac stents home O2 Surgical History: angioplasty - With coronary stent x2, cholecystectomy Smoking Status: Current every day smoker - Family History Sibling Family History: Reports: Heart Disease - Brother of massive [place] at age 50 Maternal Family History: Reports: Heart Disease Paternal Family History: Reports: No pertinent history Review of Systems General: Denies: Chills, Fever, Sweats Eyes: Denies: Visual changes - bilaterally, Diplopia ENT: Denies: Rhinorrhea, Sore throat Cardiovascular: Denies: Chest pain, Palpitations Respiratory: Reports: Dyspnea, Cough. Denies: Dyspnea on exertion Gastrointestinal: Denies: Abdominal pain, Nausea, Vomiting, Diarrhea, Melena, Hematochezia Genitourinary: Denies: Dysuria, Hematuria, Frequency Musculoskeletal: Denies: Back pain, Extremity Pain Skin: Denies: Rash, Wounds Neurological: Denies: Headache, Weakness, Numbness Physical Exam Vital Signs/Narrative: Vital Signs Temp Pulse Resp BP Pulse Ox 04/15/19 12:20 98.4 F 102 H 24 H 160/82 H 90 General: Well nourished, Well developed, No Acute Distress Head: Normocephalic, Atraumatic Eyes: Perrl, EOMI ENT: Moist mucous membranes, No rhinorrhea Neck: Supple, Nontender Cardiovascular: Regular rate, Regular rhythm, No murmurs Respiratory: No distress, CTA bilaterally, Chest nontender, Rhonchi, Wheezing Abdomen: Soft, Nontender, Nondistended, Normal bowel sounds Back: Nontender, Normal Inspection Extremities: Nontender, No edema Skin: Normal color, No rash Neurological: Alert, Oriented x3, Cranial nerves II-XII grossly intact, Normal Strength, Normal Sensation Psychological: Normal affect, Normal Mood Diagnostic/Tx/Re-eval - Medical Decision Making Patient is in no distress her pulse ox is 95% on room air speaking in full sentences she does have a dry cough is nonproductive I had a long conversation with her we discussed her antibiotics to chronic nature of her conditions given all the above screening labs the patient's EKG shows a sinus rhythm rate of about 80 no acute injury pattern intervals appear within normal range see that report The patient's screening labs showed us blood sugar of 700 no signs of DKA sodium 126 creatinine 1.06 the chest x-ray showed nothing acute see all the lab results, she was treated with insulin, we spoke with Dr. Poole hospitalist service discussing potential for admission and could be managed as an outpatient, Dr. Poole did not feel the patient would benefit from admission and did come down and see the patient talk to her about her condition and management of diabetes how she could obtain better diabetic control Explained all this to the patient she is resting company the bed she understands instructions to follow-up with your outpatient providers she will follow the instructions Dr. poole gave her regarding her diabetes to avoid excess sugary foods, follow-up with her supervisor [employer] return for change in symptoms Final impression exacerbation of COPD, diabetes with noncompliance, Home stable ED Disposition - Plan for ED Patient: Diagnosis: Acute exacerbation of chronic obstructive pulmonary disease (COPD) Instructions: BRONCHITIS, No Antibiotic (Adult), Copd Flare, Diabetes: Understanding Carbohydrates, Hyperglycemia (High Blood Sugar) Referrals: Mike Richard MD [Primary Care Provider] -
[2019-04-15 13:19] LABS: Anion Gap 6 (5-15); BUN 8 mg/dL (7-18); BUN/Creat Ratio 7.5 RATIO (10-20); Calcium,Total 8.8 mg/dL (8.5-10.1); Chloride 92 mmol/L (98-107); Creatinine, Serum 1.07 mg/dL (0.55-1.02); EST Glomerular Filtration Rate 54 mL/min (>60); Est Glom Filt Rate - Afr Amer 66 mL/min (>60); Estimated Creatinine Clearance 40.35 ml/min; Glucose 707 mg/dL (74-106); Potassium 4.5 mmol/L (3.5-5.1); Sodium Level 126 mmol/L (136-145)
[2019-04-15 13:30] LABS: BNP,B-Type NATRIURETIC PEPTIDE 17.8 pg/mL (0-100)
--- NOTE | 2019-04-15 13:47 | ED.RN ---
lab called with critical lab results. glucose 707. Dr. Perez made aware. no new orders at this time
[2019-04-15 13:58] VITALS: BP 104/51; PULSE 71; RESP 19; TEMP 36.7; O2SAT 98
[2019-04-15] MEDS: Insulin Lispro 100 UNIT/ML INSULN.PEN 20 UNIT SC (14:41)
[2019-04-15 14:43] VITALS: BP 111/80; PULSE 70; RESP 17; O2SAT 99
--- NOTE | 2019-04-15 14:48 | CON.PCM_ITS ---
Problem List (1) Hyperglycemia Status: Acute Reason for Consult Date of Consultation: 04/15/19 Reason for Consultation: Hyperglycemia History of Present Illness: The patient is a 68 year old F presents with a two-week history of cough. Cough is been nonproductive. Had been on doxycycline and is now on azithromycin for this. The cough gets worse at night. Presented to the emergency room and blood sugar was noted to be 700, however anion gap was normal and sodium was 126. I was asked to evaluate the patient for the hyperglycemia as well as hyponatremia. Patient states that she had cereal and put sugar on it and she had a regular Coke this morning. 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 Per ANGELO @ [facility] 12/08/2018 Stented coronary artery (Chronic 12/28/18) 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 Successful PTCA/RACHEL mid LAD with a 2.5 x 20 Promus Synergy, post dilated with a 2.5 x 12 NC Balloon after DIAG stent deployed; 75%-->0%, no dissection. 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 pseudoephedrine HCl [From Sudafed] Allergy (Verified 04/15/19 12:20) Shortness of breath codeine Adverse Reaction (Verified 04/15/19 12:20) HEADACHE Home Medications: Ambulatory Orders Medication Instructions Recorded Risperidone [Risperdal] 1 mg PO QHS 05/23/13 Citalopram [Celexa] 40 mg PO QHS 07/04/14 Ipratropium/Albuterol Sulfate 3 ml INHALATION TID PRN PRN 08/24/16 [Duoneb] ALPRAZolam [Xanax] 1 mg PO TID PRN PRN 08/25/16 Insulin Glargine,Hum.rec.anlog 32 unit SQ QHS 08/25/16 [Lantus] Insulin Lispro [Humalog] 0 - 200 units SQ TIDCM 08/25/16 Omeprazole [Prilosec] 20 mg PO DAILY 12/27/18 Aspirin [Aspirin EC] 81 mg PO DAILY #90 tablet. 12/29/18 Atorvastatin Calcium [Lipitor] 80 mg PO QHS #90 tab 12/29/18 Clopidogrel Bisulfate [Plavix] 75 mg PO DAILY #90 tab 12/29/18 Metoprolol Tartrate 12.5 mg PO BID #90 tab 12/29/18 losartan 25 mg tablet 25 mg PO DAILY tab 01/12/19 Azithromycin [Zithromax Z-Arslan] 250 mg PO DAILY 04/15/19 Ipratropium [Atrovent (SP)] 1 puff INHALATION Q4H 04/15/19 Surgical History: Surgical History (Last Updated 12/28/18 @ 17:00 by Deborah Suarez) Stented coronary artery (Chronic) Onset Date: 12/28/18 Z95.5 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 Successful PTCA/RACHEL mid LAD with a 2.5 x 20 Promus Synergy, post dilated with a 2.5 x 12 NC Balloon after DIAG stent deployed; 75%-->0%, no dissection. 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 Denies: Sputum production Gastrointestinal: Denies: Abdominal Pain, Nausea, Vomiting Genitourinary: Denies: Dysuria Musculoskeletal: Denies: Joint Pain, Joint Tenderness Skin: Denies: Dryness, Jaundice Neurological: Reports: Numbness - Numbness in fingertips. Denies: Focal weakness, Tingling Psychiatric: Denies: Anxiety, Depression Hematologic/ Lymphatic: Denies: Easy Bruising, Easy Bleeding, Hx of blood clot Comment: A 10 point review of systems were negative except as mentioned in the history of present illness and the other review of systems. Patient Problems: Active and Suspected Problems Hyperglycemia (Acute) - Physical Exam General: Alert, Cooperative, No apparent distress HEENT: Atraumatic, Normocephalic Oral: Moist Mucosa, No Gingival or Mucosal Lesions/ Ulcerations Neck: No Nodes, Thyroid Normal Size and Texture Lungs: Clear to auscultation, Normal air movement, No rhonchi, No wheeze Cardiovascular: Regular rate, Regular Rhythm, Normal S1, Normal S2, No murmurs Abdomen: Bowel Sounds Present, Soft, Non Tender, Non-Distended, No Hepato- splenomegaly Extremities: No edema, No Calf Tenderness Skin: No rashes, No breakdown Neurological: Muscle tone normal, Coordination normal Psych/Mental Status: Normal Affect, Appropriate Vital Signs Temp Pulse Resp BP Pulse Ox 36.7 C 70 17 111/80 99 04/15/19 13:58 04/15/19 14:43 04/15/19 14:43 04/15/19 14:43 04/15/19 14:43 Oxygen Flow Rate (L/min) 2 Oxygen Delivery Method Nasal Cannula Weight: 80.4 kg Body Mass Index (BMI) 32.4 Laboratory Tests Past 24 Hrs 04/15/19 04/15/19 04/15/19 12:50 12:50 12:50 WBC 8.3 RBC 4.84 Hgb 14.1 Hct 42.5 MCV 87.8 MCH 29.1 MCHC 33.2 RDW Std Deviation 38.3 RDW Coeff of Malcom 11.9 Plt Count 264 MPV 11.6 Immature Gran % (Auto) 0.400 Neut % (Auto) 79.7 H Lymph % (Auto) 12.3 L [place] % (Auto) 5.2 Eos % (Auto) 1.7 Baso % (Auto) 0.7 Absolute Neuts (auto) 6.6 Absolute Lymphs (auto) 1.02 Nucleated RBC % 0 Sodium 126 L Potassium 4.5 Chloride 92 L Carbon Dioxide 28.0 Anion Gap 6 BUN 8 Creatinine 1.07 H Estim Creat Clear Calc 40.35 Est GFR (MDRD) Af Amer 66 Est GFR (MDRD) Non-Af 54 L BUN/Creatinine Ratio 7.5 L Glucose 707 H* Calcium 8.8 Troponin I < 0.015 B-Natriuretic Peptide 17.8 Acetone Level 04/15/19 12:50 WBC RBC Hgb Hct MCV MCH MCHC RDW Std Deviation RDW Coeff of Malcom Plt Count MPV Immature Gran % (Auto) Neut % (Auto) Lymph % (Auto) [place] % (Auto) Eos % (Auto) Baso % (Auto) Absolute Neuts (auto) Absolute Lymphs (auto) Nucleated RBC % Sodium Potassium Chloride Carbon Dioxide Anion Gap BUN Creatinine Estim Creat Clear Calc Est GFR (MDRD) Af Amer Est GFR (MDRD) Non-Af BUN/Creatinine Ratio Glucose Calcium Troponin I B-Natriuretic Peptide Acetone Level NEGATIVE Assessment/Plan All Active Problems Hyperglycemia (Acute) Unstable angina pectoris due to coronary arteriosclerosis (Acute) Chest pain (Acute) 1. Hyperglycemia * Patient states that at baseline, her blood sugars are range around 215 this before she eats. She freely admits to having sugar on her cereal as well as having a regular Coke this morning. Feel that patient's blood sugar is poorly controlled at baseline and also having dietary indiscretions. I discussed with the patient about stopping the sugar in her cereal which she states that she does not do every day and also minimizing carbs which she says she does anyways. I also advised her to cut out drinking Coke as well as any other sugary beverages. Patient said that she is agreeable to that. I did recommend that she keep a registry in a log of all her blood sugar revealed presented to her primary care provider and so that here she may make further adjustments. * Advised nurse to change the insulin from IV over to subcu 2. Hyponatremia * Pseudohyponatremia due to the hyperglycemia * No additional work-up necessary 3. Bronchitis * Patient is clinically improved but still has the cough is worse at night. I did recommend guaifenesin with dextromethorphan which she can get [id number] but did just do that at night. * Patient follow-up with Dr. Nuno in July. Patient medically stable to be discharged home. Thank you for the consult. Code Visit Office Visits / Consults: [id number] OP Consult L4
[2019-04-15 15:22] LABS: Bedside Glucose > 500 mg/dL (70-110)
== END 2019-04-15 15:44 | disposition home or self-care (01) ==
LOC: ED 13:24
PROVIDERS: Emergency Provider Emergency Medicine; Family Provider Family Medicine; PCP Family Medicine
DX: J44.1 Chronic obstructive pulmonary disease with (acute) exacerbation (principal); F17.200 Nicotine dependence, unspecified, uncomplicated; E11.65 Type 2 diabetes mellitus with hyperglycemia; Z99.81 Dependence on supplemental oxygen; Z91.14 Patient's other noncompliance with medication regimen; Z79.4 Long term (current) use of insulin
CPT/HCPCS: 71045; 80048; 82009; 82962; 83880; 84484; 85025; 93005; 94640; 99284; A4216

== ENCOUNTER 2019-06-11 15:38 | Emergency (ER) | payer MEDICARE, SELFPAY ==
[2018-12-29 10:40] VITALS: BMI 34.9
[2019-04-20 13:43] VITALS: BMI 32.9
[2019-06-11] VITALS (7 sets, daily range): BP systolic 155–212; BP diastolic 65–86; PULSE 76–89; RESP 14–24; TEMP 36.7; O2SAT 96–98; BMI 33.9
--- NOTE | 2019-06-11 15:51 | EKG12_ITS ---
Test Reason : SOB Blood Pressure : / mmHG Vent. Rate : 068 BPM Atrial Rate : 068 BPM P-R Int : 156 ms QRS Dur : 082 ms QT Int : 406 ms P-R-T Axes : -09 030 023 degrees QTc Int : 431 ms Sinus vs. Ectopic Atrial Rhythm Normal ECG Confirmed by RAMIREZ MELVIN, ARPITA ([id number]), editor news JAVIER COLBY ([id number]) on 06/14/2019 10:57:49 AM Referred By: ARTURO Confirmed By:ARPITA GUZMÁN MD
--- NOTE | 2019-06-11 15:54 | ED.VIS.DYS ---
History of Present Illness Informant: Patient Onset: Yesterday Activity at onset: Exertion, Light Activity, Rest Timing: Continuous Quality: Dyspnea on exertion, Wheezing Current Severity: Severe Maximum Severity: Severe Worsened by: Coughing, Exertion Relieved by: Oxygen, Rest Associated Symptoms: Cough, Green sputum, Rhinorrhea, Sore throat. Negative for: Bloody Sputum, Chills, Clear sputum, Ear pain, Fever, Post-nasal drainage, Sweats, White sputum, Yellow sputum Chest Pain: None Narrative: 68-year-old female history of COPD and on home oxygen presents with a couple of days of worsening cough with sputum dyspnea on exertion and wheezing. No fevers. She has not been lightheaded or dizzy. No diaphoresis. No chest pain. No hemoptysis. No leg pain or swelling. No orthopnea or paroxysmal nocturnal dyspnea. She has had nasal congestion and sore throat but no fever. No myalgias. No rash. No vomiting or diarrhea. No recent travel no recent surgery and no sick contacts. PE Risk Factors: Negative for: Cancer, OCP + Smoking + > 35, Prior DVT or PE, Recent immobilization, Recent surgery, Recent travel Prior similar symptoms: Yes Recent Illness/Hospitalization: No <Bolivar Blank - Last Filed: 06/11/19 18:09> <Omi Frazier - Last Filed: 06/11/19 23:52> Chief Complaint: Shortness of Breath Past Medical History Prior records reviewed: Yes Past Medical History: - - COPD on home oxygen Surgical History: angioplasty - With coronary stent x2, cholecystectomy Smoking Status: Current every day smoker - Family History Sibling Family History: Reports: Heart Disease - Brother of massive ID at age 50 Maternal Family History: Reports: Heart Disease Paternal Family History: Reports: No pertinent history <Bolivar Blank - Last Filed: 06/11/19 18:09> <Omi Frazier - Last Filed: 06/11/19 23:52> - Allergies and Home Meds Allergies/Adverse Reactions: Allergies amoxicillin [Amoxicillin] Allergy (Intermediate, Verified 06/11/19 15:40) Rash gabapentin [From Neurontin] Allergy (Verified 06/11/19 15:40) Shortness of breath levofloxacin [From Levaquin] Allergy (Verified 06/11/19 15:40) Hives is allergic to the red dye in the pill form, states she is fine with the iv form. [facility]hed[facility] Allergy (Verified 06/11/19 15:40) Shortness of breath codeine Adverse Reaction (Verified 06/11/19 15:40) HEADACHE Primary Care Physician: Mike Paulino MD [Primary Care Provider] - 5-7 Days Review of Systems All systems negative except as indicated General: Denies: Chills, Fever Cardiovascular: Denies: Chest pain Respiratory: Reports: Dyspnea, Cough, Sputum, Dyspnea on exertion. Denies: Orthopnea, Paroxysmal nocturnal dyspnea Gastrointestinal: Denies: Abdominal pain, Nausea, Vomiting, Diarrhea, Constipation, Melena, Hematochezia, -, - Musculoskeletal: Denies: Myalgias, Arthralgias, Neck pain, Back pain, Swelling, Extremity Pain, -, - Neurological: Denies: Headache, Weakness, Parasthesia, Numbness, -, - <Bolivar Blank - Last Filed: 06/11/19 18:09> Physical Exam Vital Signs/Narrative: Vital Signs Temp Pulse Resp BP Pulse Ox 06/11/19 15:40 98.1 F 89 14 212/86 H 96 Inital Vital Signs reviewed: Yes General: Well nourished, Well developed, No Acute Distress Head: Normocephalic, Atraumatic Eyes: Perrl, EOMI ENT: Moist mucous membranes, TM's clear, Nasal congestion. Negative for: Dry mucous membranes, Sinus tenderness Neck: Supple, Nontender, No lymphadenopathy, No JVD Cardiovascular: Regular rhythm, Tachycardia Respiratory: No distress, Wheezing, Diminished, Decreased Air Movement Abdomen: Soft, Nontender, Nondistended, Normal bowel sounds, No masses Back: Nontender, Normal Inspection Extremities: Nontender, No edema Skin: Normal color, No rash Neurological: Alert, Oriented x3 <Bolivar Blank - Last Filed: 06/11/19 18:09> Vital Signs/Narrative: Vital Signs Temp Pulse Resp BP Pulse Ox 06/11/19 17:39 16 06/11/19 17:04 98.1 F 85 16 162/65 H 98 06/11/19 16:29 76 18 06/11/19 16:04 98.1 F 76 18 212/86 H 96 06/11/19 15:40 98.1 F 89 14 212/86 H 96 <Omi Frazier - Last Filed: 06/11/19 23:52> Diagnostic/Tx/Re-eval Chest X-Ray - ED: 2 View, Read by ED Physician, Read by Radiologist, No Acute Disease - Rhythm Strip Rhythm Strip: Sinus Rhythm Rate: 68 Ectopy: None - EKG Initial EKG Interpretation: Sinus Rhythm, No Acute Injury Pattern Prior: Unchanged Treatment - Dyspnea: Albuterol, Atrovent, Steroid Repeat Evaluation: Improved With Ambulation: Asymptomatic - Medical Decision Making 68-year-old female with COPD was given aerosols and prednisone. She had significant improvement. Laboratory work-up unremarkable as was chest x-ray. She is requesting discharge. Her vital signs are stable. She is asymptomatic on oxygen which she is on chronically. She will be discharged with prednisone. She already has a prescription for doxycycline. She will continue her aerosols and follow-up with her primary care. <Bolivar Blank - Last Filed: 06/11/19 18:09> - Medical Decision Making Patient was seen with me. I did a [id number] examination with the patient. Patient presents with shortness of breath that became worse today. Patient has a history of COPD. Patient is on home oxygen. Patient denies any chest pain. Patient denies any nausea or vomiting. Vital signs are stable. Patient is afebrile. Patient is in no acute distress. Oral mucosa is pink and moist. Neck is supple. There is no JVD. Heart was regular rate and rhythm. Lungs showed diffuse wheezing. There is good respiratory effort noted. Abdomen is soft and nontender. Cranial nerves II through XII are intact. There are no focal motor or sensory deficits noted. Patient was given prednisone and DuoNeb aerosols here. Chest x-ray does not show any acute cardiopulmonary process. Patient is feeling better on reevaluation. Patient was instructed to follow-up with her primary care physician in 5 to 7 days. Patient was given a prescription for prednisone. Patient understood and was agreeable with the plan. All questions were answered. <Omi Frazier - Last Filed: 06/11/19 23:52> Disposition: Home <Omi Frazier - Last Filed: 06/11/19 23:52> ED Disposition <Bolivar Blank - Last Filed: 06/11/19 18:09> <Omi Frazier - Last Filed: 06/11/19 23:52> - Plan for ED Patient: Disposition: Home or Assisted Living Diagnosis: Acute exacerbation of chronic obstructive pulmonary disease (COPD) Instructions: Copd Flare Prescriptions: Prednisone [Deltasone] 60 mg PO DAILY #15 tab Prescription Printed Referrals: Mike Paulino MD [Primary Care Provider] - 5-7 Days
[2019-06-11 16:12] LABS: Absolute Lymphocyte Count 1.34 X10^3/uL (0.83-4.51); Absolute Neutrophil Count 5.2 X10^3/uL (2.0-7.7); Basophil# 0.05 X10^3/uL; Basophil% 0.7 % (0-1); Eosinophil# 0.27 X10^3/uL; Eosinophils% 3.6 % (0-5); Hematocrit 40.7 % (37-47); Hemoglobin 12.9 g/dL (12.0-15.0); Lymphocyte # 1.34 X10^3/ul (4.0); Lymphocyte % 17.9 % (19-41); Mean Corp Hgb Conc 31.7 g/dL (32-36); Mean Corpuscular Hgb 28.8 pg (27.0-32.0); Mean Corpuscular Volume 90.8 fL (81-99); Mean Platelet Vol. 10.7 fl (6.2-12.0); NRBC Flagged by Analyzer 0 % (0-5); Neutrophil # 5.19 X10^3/uL (2.7-7.7); Neutrophil % 69.5 % (47-70); Platelet Count 254 K/mm3 (150-450); RBC Distribution Width CV 12.2 % (11.6-14.6); RBC Distribution Width SD 40.3 fl (35.1-43.9); Red Blood Count 4.48 M/mm3 (4.2-5.4); White Blood Count 7.5 K/mm3 (4.4-11.0)
[2019-06-11 16:24] LABS: Anion Gap 6 (5-15); BUN 5 mg/dL (7-18); BUN/Creat Ratio 6.4 RATIO (10-20); Chloride 98 mmol/L (98-107); Creatinine, Serum 0.79 mg/dL (0.55-1.02); EST Glomerular Filtration Rate 77 mL/min (>60); Est Glom Filt Rate - Afr Amer 94 mL/min (>60); Estimated Creatinine Clearance 43.18 ml/min; Glucose 254 mg/dL (74-106); Potassium 3.8 mmol/L (3.5-5.1); Sodium Level 134 mmol/L (136-145)
[2019-06-11] MEDS: Ipratropium/Albuterol Sulfate 3 ML AMPUL.NEB INHALATION (16:28)
[2019-06-11] MEDS: Albuterol 2.5 MG/3 ML VIAL.NEB. INHALATION ×3 (16:29)
[2019-06-11] MEDS: predniSONE 20 MG Tablet 60 MG PO (16:59)
--- NOTE | 2019-06-11 17:01 | RAD_ITS ---
STUDY: X-RAY CHEST REASON FOR EXAM: Female, 68 years old. Dyspnea TECHNIQUE: PA and lateral views of the chest. COMPARISON: 04/15/2019 FINDINGS: The lungs are clear but hyper expanded. Opacity in the left lung base has resolved. There is no demonstrated pleural abnormality. Normal size heart. Normal mediastinum and wallace. Normal visualized pulmonary arteries. Normal visualized aortic arch and descending thoracic aorta. There is demineralization of the osseous structures. Normal visualized ribs, clavicles, and shoulders. There is no demonstrated abnormality of the visualized soft tissue structures of the upper abdomen. RAD/Chest PA and Lateral IMPRESSION: No airspace consolidation or pleural effusion. Hyperinflation. Electronically Signed: Yaakov English MD ([place]) at 17:31 EST , Service support ,
== END 2019-06-11 18:27 | disposition home or self-care (01) ==
PROVIDERS: Emergency Provider Physician Assistant Medical; Family Provider Family Medicine; PCP Family Medicine
DX: J44.1 Chronic obstructive pulmonary disease with (acute) exacerbation (principal); Z99.81 Dependence on supplemental oxygen; F17.200 Nicotine dependence, unspecified, uncomplicated
CPT/HCPCS: 71046; 80048; 85025; 93005; 94640; 99283; A4216

== ENCOUNTER 2019-06-16 16:37 | Inpatient (IN) | payer MEDICARE, SELFPAY ==
[2018-12-29 10:40] VITALS: BMI 34.9
[2019-06-11 15:40] VITALS: BMI 33.9
[2019-06-16] VITALS (21 sets, daily range): BP systolic 114–179; BP diastolic 57–81; PULSE 65–100; RESP 12–48; TEMP 36.4–37; O2SAT 91–100; BMI 34.3; BMI 34.4; BMI 32.8
--- NOTE | 2019-06-16 16:56 | EKG12_ITS ---
Test Reason : SOB Blood Pressure : / mmHG Vent. Rate : 095 BPM Atrial Rate : 095 BPM P-R Int : 126 ms QRS Dur : 080 ms QT Int : 376 ms P-R-T Axes : 063 043 059 degrees QTc Int : 472 ms Sinus rhythm with Premature supraventricular complexes Nonspecific ST and T wave abnormality Abnormal ECG Confirmed by BANG MELVIN, ROSALIA ([id number]), assistant editor JAVIER COLBY ([id number]) on 06/20/2019 1:51:33 PM Referred By: Yuan Singh Confirmed By:ROSALIA CUENCA MD
--- NOTE | 2019-06-16 16:58 | ED.DCSUM_ITS ---
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 Onset: Today Context: Sudden Onset Timing: Continuous Quality: Shortness of breath Location: Home smoking a cigarette Current Severity: Moderate Maximum Severity: Severe Worsened by: Smoking a cigarette Relieved by: Improved after patient was placed on BiPAP Associated Symptoms: Shortness of breath, diaphoresis and feeling anxious Narrative: Patient is a 68-year-old woman with history of COPD who became short of breath while smoking a cigarette. 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 She was seen on June 11. Records were reviewed. Her vital signs and presentation is significantly worse today. I was informed that she was in respiratory distress with grunting and decreased level conscious. She was immediately placed on BiPAP. She is no longer grunting. She is still tachypneic and tachycardic. She is now conversant. Patient denies fever, chills or night sweats. Patient denies productive cough. She denies runny nose, congestion or postnasal drainage. She denies ear pain, decreased hearing or ear pain. She denies chest pain of any type including pleuritic. She denies history of PE or DVT. She denies GI or symptoms. She denies leg pain, swelling discoloration. Prior similar symptoms: Yes Recent Illness/Hospitalization: Yes - Past Medical History (1) Anxiety Status: Chronic (2) Atherosclerotic heart disease of [place] coronary artery without angina pectoris Status: Chronic Comment: Double vessel CAD of the LAD and DIAG#2 Successful PTCA/RACHEL ostial DIAG with a 2.25 x 12 Promus Synergy stent; Successful PTCA/RACHEL mid LAD with a 2.5 x 20 Promus Synergy. Per ANGELO @ [facility] 12/08/2018 (3) [place] esophagus Status: Chronic (4) COPD (chronic obstructive pulmonary disease) Status: Chronic (5) Depression Status: Chronic (6) Hypertension Status: Chronic (7) Hypothyroidism Status: Chronic (8) Smoking Status: Chronic Past Medical History - Allergies and Home Meds Allergies/Adverse Reactions: Allergies amoxicillin [Amoxicillin] Allergy (Intermediate, Verified 06/11/19 15:40) Rash gabapentin [From Neurontin] Allergy (Verified 06/11/19 15:40) Shortness of breath levofloxacin [From Levaquin] Allergy (Verified 06/11/19 15:40) Hives is allergic to the red dye in the pill form, states she is fine with the iv form. pseudoephedrine HCl [From Sudafed] Allergy (Verified 06/11/19 15:40) Shortness of breath codeine Adverse Reaction (Verified 06/11/19 15:40) HEADACHE Primary Care Physician: Mike Paulino MD [Primary Care Provider] - Prior records reviewed: Yes Surgical History: angioplasty - With coronary stent x2, cholecystectomy Lives: Alone Smoking Status: Current every day smoker Alcohol: Rare Drugs: None - Family History Sibling Family History: Reports: Heart Disease - Brother of massive CT at age 50 Maternal Family History: Reports: Heart Disease Paternal Family History: Reports: No pertinent history Review of Systems General: Denies: Chills, Fever, Sweats Eyes: Denies: Visual changes - bilaterally, Blurred Vision - bilaterally, Diplopia ENT: Denies: Bilateral ear pain, Rhinorrhea, Sore throat Cardiovascular: Denies: Chest pain, Palpitations Respiratory: Reports: Dyspnea, Cough, Dyspnea on exertion, Orthopnea - Orthopnea is chronic. She states she sleeps with a wedge and pillow for comfort. She denies shortness of breath.. Denies: Sputum Gastrointestinal: Denies: Abdominal pain, Nausea, Vomiting, Diarrhea, Melena, Hematochezia Genitourinary: Denies: Dysuria, Hematuria, Frequency Musculoskeletal: Denies: Myalgias, Arthralgias, Neck pain, Back pain, Swelling, Extremity Pain Skin: Denies: Rash, Wounds Neurological: Denies: Headache, Weakness, Parasthesia, Numbness Psych: Reports: Anxiety. Denies: Depression Hematologic: Denies: Easy bruising, Easy bleeding Allergy: Denies: Uticaria, Swelling of the mouth Physical Exam Vital Signs/Narrative: Vital Signs Temp Pulse Resp BP Pulse Ox 06/16/19 16:45 99 06/16/19 16:38 97.5 F L 100 32 H 179/81 H 96 Inital Vital Signs reviewed: Yes General: Well nourished, Well developed, Acute Distress Head: Normocephalic, Atraumatic Eyes: Perrl, EOMI ENT: Moist mucous membranes, No rhinorrhea Neck: Supple, Nontender Cardiovascular: Regular rate, Regular rhythm, No murmurs, Normal S1, Normal S2 Respiratory: Chest nontender, Wheezing, Diminished, Decreased Air Movement, Retractions Abdomen: Soft, Nontender, Nondistended, Normal bowel sounds Back: Nontender, Normal Inspection Extremities: Nontender, No edema Skin: Normal color, No rash Neurological: Alert, Oriented x3, Cranial nerves II-XII grossly intact, Normal Strength, Normal Sensation Psychological: Normal affect, Normal Mood Diagnostic/Tx/Re-eval Chest X-Ray - ED: 1 View, Read by ED Physician, Normal, Heart, Mediastinum, Bony Structures, No Acute Disease, Chronic Changes, - - Changes noted left lower lobe. Unchanged from prior other than difference in technique i.e. penetration of the film. Impressions Chest X-Ray 06/16/19 17:00 IMPRESSION: 1. No acute findings or change since prior. 2. Left lower lung, presumably lingular and adjacent mediastinal/pleural changes, chronic. Electronically Signed: Triniroxanne Kevyn, at 17:20 EST Tel , Service support , 06/16/19 17:00 Chest 1 View (Portable) [RAD] Stat Laboratory Results 06/16/19 06/16/19 06/16/19 16:51 16:51 16:51 WBC 11.9 H RBC 5.12 Hgb 14.7 Hct 45.4 MCV 88.7 MCH 28.7 MCHC 32.4 RDW Std Deviation 39.2 RDW Coeff of Malcom 12.0 Plt Count 282 MPV 10.5 Immature Gran % (Auto) 0.600 Neut % (Auto) 72.7 H Lymph % (Auto) 18.7 L [place] % (Auto) 5.0 Eos % (Auto) 2.0 Baso % (Auto) 1.0 Absolute Neuts (auto) 8.7 H Absolute Lymphs (auto) 2.23 Nucleated RBC % 0 PT 13.3 INR 1.0 APTT 25.9 Specimen Type Sample Site O2 % VBG pH VBG pO2 VBG O2 Sat (Calc) VBG O2 Content VBG Base Excess POC Mix VBG pCO2 Pt Tmp O2 Delivery Device EPAP IPAP Blood Gas Notified Whom Blood Gas Notified Time Sodium 133 L Potassium 3.6 Chloride 97 L Carbon Dioxide 29.0 Anion Gap 7 BUN 9 Creatinine 0.91 Estim Creat Clear Calc 47.45 Est GFR (MDRD) Af Amer 79 Est GFR (MDRD) Non-Af 65 BUN/Creatinine Ratio 9.9 L Glucose 400 H Lactic Acid Calcium 8.7 Total Bilirubin 0.30 AST 14 L ALT 24 Alkaline Phosphatase 148 H Troponin I 0.016 B-Natriuretic Peptide Total Protein 6.8 Albumin 3.5 Globulin 3.3 Albumin/Globulin Ratio 1.1 06/16/19 06/16/19 06/16/19 16:51 16:51 17:10 WBC RBC Hgb Hct MCV MCH MCHC RDW Std Deviation RDW Coeff of Malcom Plt Count MPV Immature Gran % (Auto) Neut % (Auto) Lymph % (Auto) [place] % (Auto) Eos % (Auto) Baso % (Auto) Absolute Neuts (auto) Absolute Lymphs (auto) Nucleated RBC % PT INR APTT Specimen Type KAILASH Sample Site OTHER O2 % 40 VBG pH 7.30 L VBG pO2 34 VBG O2 Sat (Calc) 57 VBG O2 Content 33 VBG Base Excess 5 H POC Mix VBG pCO2 Pt Tmp 64.1 H O2 Delivery Device Bi / C PAP EPAP 6 IPAP 12 Blood Gas Notified Whom ED MD Blood Gas Notified Time 1700 Sodium Potassium Chloride Carbon Dioxide Anion Gap BUN Creatinine Estim Creat Clear Calc Est GFR (MDRD) Af Amer Est GFR (MDRD) Non-Af BUN/Creatinine Ratio Glucose Lactic Acid 2.1 H Calcium Total Bilirubin AST ALT Alkaline Phosphatase Troponin I B-Natriuretic Peptide 95.7 Total Protein Albumin Globulin Albumin/Globulin Ratio Patient's lactate elevated most likely sigmoid hypoxia. There is no source of obvious infection at this time. She was treated with doxycycline for exacerbation of COPD. She did receive Solu-Medrol. The venous blood gas r eveals acidemia. CO2 is elevated at 64.1. Hospitalist was made aware patient for admission. Discussed CODE STATUS with patient. She is a full go. - EKG Initial EKG Interpretation: Sinus Rhythm - Sinus rhythm with a ventricular rate of 95. ND interval is 126. QS duration 80 ms. QT duration 376 ms. [place] is normal. There are nonspecific changes which most likely represent artifact because of difficulty breathing. - Medical Decision Making Abrupt onset of shortness of breath need to evaluate for pneumothorax, congestive heart failure, pulmonary embolus, pneumonia and exacerbation of COPD since she was smoking when this started. EKG, chest x-ray and appropriate blood work was ordered. She was placed on BiPAP. Will obtain venous blood gas to assess CO2 and pH. - Critical Care Time Critical care time (excluding procedures): 30-74 minutes - Care time 36 minutes, Discussing w/Patient &/or Family/Travel Services Professional, Discussing w/Consultants, Arranging Admission or Transfer ED Disposition - Plan for ED Patient: Disposition: Acute Care Hospital [facility] Diagnosis: Acute respiratory failure with hypoxia and hypercapnia, COPD with exacerbation Referrals: Mike Paulino MD [Primary Care Provider] -
--- NOTE | 2019-06-16 17:00 | RAD_ITS ---
STUDY: X-RAY CHEST REASON FOR EXAM: Female, 68 years old. Shortness of breath TECHNIQUE: Frontal view of the chest was performed COMPARISON: 15 April 2019, 11 June 2019 FINDINGS: There is stable opacity in the left lower lung, likely representing scarring and possible fat pad as it was not seen on the lateral view in the posterior aspect of the left lower lung. Remainder of the lungs are clear. The pneumothorax, pulmonary edema, cardiomegaly or pneumonia. Osseous structures are intact. Appearance is similar to prior. [ ] RAD/Chest 1 View (Portable) IMPRESSION: 1. No acute findings or change since prior. 2. Left lower lung, presumably lingular and adjacent mediastinal/pleural changes, chronic. Electronically Signed: Andrade Bagley, at 17:20 EST Tel , Service support ,
[2019-06-16] MEDS: Ipratropium/Albuterol Sulfate 3 ML AMPUL.NEB INHALATION ×2 (17:01→22:29)
[2019-06-16] MEDS: Albuterol 2.5 MG/3 ML VIAL.NEB. INHALATION (17:01)
[2019-06-16] MEDS: MethylPREDNISolone 125 MG/2 ML Vial IV (17:07)
[2019-06-16 17:12] LABS: Absolute Lymphocyte Count 2.23 X10^3/uL (0.83-4.51); Absolute Neutrophil Count 8.7 X10^3/uL (2.0-7.7); Basophil# 0.12 X10^3/uL; Eosinophil# 0.24 X10^3/uL; Hematocrit 45.4 % (37-47); Hemoglobin 14.7 g/dL (12.0-15.0); Lymphocyte # 2.23 X10^3/ul (4.0); Lymphocyte % 18.7 % (19-41); Mean Corp Hgb Conc 32.4 g/dL (32-36); Mean Corpuscular Hgb 28.7 pg (27.0-32.0); Mean Corpuscular Volume 88.7 fL (81-99); Mean Platelet Vol. 10.5 fl (6.2-12.0); Monocyte# 0.59 X10^3/uL; NRBC Flagged by Analyzer 0 % (0-5); Neutrophil # 8.66 X10^3/uL (2.7-7.7); Neutrophil % 72.7 % (47-70); Platelet Count 282 K/mm3 (150-450); RBC Distribution Width SD 39.2 fl (35.1-43.9); Red Blood Count 5.12 M/mm3 (4.2-5.4); White Blood Count 11.9 K/mm3 (4.4-11.0)
[2019-06-16 17:16] LABS: Blood Gas Specimen Type VEN; EPAP 6; FI02 40; IPAP 12; SITE OTHER; Time Given 1700; VBG BASE EXCESS 5 mmol/L (-1.0-3.5); VBG Bicarbonate 31 mmol/L (22-26); VBG Oxygen Content 33 mmol/L (23-33); VBG PO2 34 mmHg (25-40); VBG SO2 57 % (50-70); VBG pCO2 64.1 mmHg (41-51)
[2019-06-16 17:25] LABS: Prothrombin Time (Protime)PT. 13.3 SECONDS (11.7-14.9)
[2019-06-16 17:26] LABS: Partial Thromboplast Time 25.9 Seconds (24.1-36.2)
[2019-06-16 17:42] LABS: Lactic Acid 2.1 mmol/L (0.4-2.0)
[2019-06-16 17:59] LABS: BNP,B-Type NATRIURETIC PEPTIDE 95.7 pg/mL (0-100)
--- NOTE | 2019-06-16 18:20 | ED.RN ---
PER PT REQUEST,DAUGHTER IN LAW CRYSTAL WAS CALLED.
[2019-06-16 18:27] LABS: ALB/GLOB Ratio 1.1 RATIO (0.9-2.4); AST(SGOT) 14 U/L (15-37); Alanine Aminotransfer ALT/SGPT 24 U/L (13-56); Albumin, Serum 3.5 g/dL (3.2-5.0); Alkaline Phosphatase 148 U/L (45-117); Anion Gap 7 (5-15); BUN 9 mg/dL (7-18); BUN/Creat Ratio 9.9 RATIO (10-20); Calcium,Total 8.7 mg/dL (8.5-10.1); Chloride 97 mmol/L (98-107); Creatinine, Serum 0.91 mg/dL (0.55-1.02); EST Glomerular Filtration Rate 65 mL/min (>60); Est Glom Filt Rate - Afr Amer 79 mL/min (>60); Estimated Creatinine Clearance 47.45 ml/min; Globulin 3.3 g/dL (2.2-4.2); Glucose 400 mg/dL (74-106); Potassium 3.6 mmol/L (3.5-5.1); Protein, Total 6.8 g/dL (6.4-8.2); Sodium Level 133 mmol/L (136-145)
[2019-06-16] MEDS: Doxycycline 100 MG CAPSULE PO (18:29)
--- NOTE | 2019-06-16 19:06 | PCM.HP.STD ---
Problem List (1) Acute respiratory failure with hypoxia and hypercapnia Status: Acute (2) COPD exacerbation Status: Acute (3) Hyperglycemia Status: Acute (4) Hypertension Status: Chronic Qualifiers: Hypertension type: essential hypertension Qualified Code(s): I10 - Essential (primary) hypertension (5) Atherosclerotic heart disease of [place] coronary artery without angina pectoris Status: Chronic Qualifiers: [place] vs. transplanted heart: [place] heart Qualified Code(s): I25.10 - Atherosclerotic heart disease of [place] coronary artery without angina pectoris Comment: Double vessel CAD of the LAD and DIAG#2 Successful PTCA/RACHEL ostial DIAG with a 2.25 x 12 Promus Synergy stent; Successful PTCA/RACHEL mid LAD with a 2.5 x 20 Promus Synergy. Per ANGELO @ [facility] 12/08/2018 (6) Stented coronary artery Status: Chronic Comment: 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 Successful PTCA/RACHEL mid LAD with a 2.5 x 20 Promus Synergy, post dilated with a 2.5 x 12 [place] Balloon after DIAG stent deployed; 75%-->0%, no dissection. (7) Smoking Status: Chronic (8) Chronic respiratory failure Status: Chronic Comment: On home oxygen (9) Muscular dystrophy Status: Chronic (10) Hyponatremia Status: Chronic (11) Hypothyroidism Status: Chronic (12) COPD (chronic obstructive pulmonary disease) Status: Chronic (13) Depression Status: Chronic (14) [place] esophagus Status: Chronic Qualifiers: [place]ega's esophagus type: without dysplasia Qualified Code(s): K22.70 - [place]'s esophagus without dysplasia (15) Postprandial bloating Status: Chronic (16) Anxiety Status: Chronic History of Present Illness Date of Admission: 06/16/19 Chief Complaint: shortness of breath The patient is a 68 year old F with a significant history of hypertension; depression; diabetes mellitus; tobacco abuse; CAD status post coronary stent; COPD with home nightly oxygen use who presented to the emergency department with sudden shortness of breath that started after she finished smoking. Associated with her symptoms is wheezing and productive cough. She reports thick yellow sputum that is different from her baseline. Patient called the paramedics and was brought to emergency department. At the emergency department patient was noted to be a grunting. She was initially put on nonrebreather mask and finally transitioned to BiPAP. She was found to be severely tachypneic. Past Medical History Past Medical History (Chronic Problems): Chronic Problems (Last Reviewed 06/16/19 @ 20:18 by Yuan Singh MD) COPD with exacerbation (Chronic) Hypertension (Chronic) Atherosclerotic heart disease of [place] coronary artery without angina pectoris (Chronic) Double vessel CAD of the LAD and DIAG#2 Successful PTCA/RACHEL ostial DIAG with a 2.25 x 12 Promus Synergy stent; Successful PTCA/RACHEL mid LAD with a 2.5 x 20 Promus Synergy. Per DJN @ [facility] 12/08/2018 Stented coronary artery (Chronic 12/28/18) 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 Successful PTCA/RACHEL mid LAD with a 2.5 x 20 Promus Synergy, post dilated with a 2.5 x 12 [place] Balloon after DIAG stent deployed; 75%-->0%, no dissection. Smoking (Chronic) Chronic respiratory failure (Chronic) On home oxygen Muscular dystrophy (Chronic) Hyponatremia (Chronic) Hypothyroidism (Chronic) COPD (chronic obstructive pulmonary disease) (Chronic) Depression (Chronic) [place] esophagus (Chronic) Postprandial bloating (Chronic) Anxiety (Chronic) Medical History: Medical History (Last Reviewed 06/16/19 @ 20:47 by Yuan Singh MD) Hypertension (Chronic) I10 Atherosclerotic heart disease of [place] coronary artery without angina pectoris (Chronic) I25.10 Double vessel CAD of the LAD and DIAG#2 Successful PTCA/RACHEL ostial DIAG with a 2.25 x 12 Promus Synergy stent; Successful PTCA/RACHEL mid LAD with a 2.5 x 20 Promus Synergy. Per DJN @ [facility] 12/08/2018 COPD (chronic obstructive pulmonary disease) (Chronic) J44.9 Depression (Chronic) F32.9 Anxiety (Chronic) F41.9 Allergies amoxicillin [Amoxicillin] Allergy (Intermediate, Verified 06/11/19 15:40) Rash gabapentin [From Neurontin] Allergy (Verified 06/11/19 15:40) Shortness of breath levofloxacin [From Levaquin] Allergy (Verified 06/11/19 15:40) Hivtj is allergic to the red dye in the pill form, states she is fine with the iv form. pseudoephedrine HCl [From Sudafed] Allergy (Verified 06/11/19 15:40) Shortness of breath codeine Adverse Reaction (Verified 06/11/19 15:40) HEADACHE Home Medications: Ambulatory Orders Medication Instructions Recorded Risperidone [Risperdal] 1 mg PO QHS 05/23/13 Citalopram [Celexa] 40 mg PO QHS 07/04/14 Ipratropium/Albuterol Sulfate 3 ml INHALATION TID PRN PRN 08/24/16 [Duoneb] ALPRAZolam [Xanax] 1 mg PO TID PRN PRN 08/25/16 Insulin Glargine,Hum.rec.anlog 32 unit SQ QHS 08/25/16 [Lantus] Insulin Lispro [Humalog] See Protocol SQ TIDCM 08/25/16 Omeprazole [Prilosec] 20 mg PO DAILY 12/27/18 Clopidogrel Bisulfate [Plavix] 75 mg PO DAILY #90 tab 12/29/18 losartan 25 mg tablet 25 mg PO DAILY tab 01/12/19 Ipratropium [Atrovent (SP)] 1 puff INHALATION Q4H 04/15/19 aspirin 81 mg tablet,delayed 81 mg PO DAILY #90 tablet. 04/20/19 release metoprolol tartrate 25 mg tablet 12.5 mg PO BID #90 tab 04/20/19 atorvastatin 80 mg tablet 80 mg PO QHS #90 tab 05/22/19 Surgical History: Surgical History (Last Reviewed 06/16/19 @ 20:47 by Yuan Singh MD) Stented coronary artery (Chronic) Onset Date: 12/28/18 Z95.5 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 Successful PTCA/RACHEL mid LAD with a 2.5 x 20 Promus Synergy, post dilated with a 2.5 x 12 [place] Balloon after DIAG stent deployed; 75%-->0%, no dissection. 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 Lives: Alone Smoking Status: Current every day smoker Alcohol: Rare Drugs: None - *Family History Sibling History Items: Heart Disease - Brother of massive [place] at age 50 Maternal History Items: Heart Disease Paternal History Items: Pulmonary Disease Review of Systems Constitutional: Denies: Chills, Fever, Weight Change HEENT: Denies: Head Aches, Sinus Congestion, Sinus Drainage Cardiovascular: Denies: Chest Pain, Palpitations Respiratory: Reports: Cough, Shortness of Breath, Sputum production, Wheezing Gastrointestinal: Denies: Abdominal Pain, Nausea, Vomiting Genitourinary: Denies: Dysuria Musculoskeletal: Denies: Joint Pain, Joint Tenderness Skin: Denies: Rash, Wounds Neurological: Denies: Numbness, Tingling, Focal weakness Psychiatric: Reports: Anxiety, Depression. Denies: Homicidal Ideations, Suicidal Ideations Hematologic/ Lymphatic: Denies: Easy Bruising, Easy Bleeding VTE Information - Inpt Only VTE Present on Admission: No VTE Mechan Device Prophylaxis: None VTE Pharm Prophylaxis ordered?: Yes Patient Problems: Active and Suspected Problems (Last Reviewed 06/16/19 @ 20:18 by Yuan Singh MD) Acute respiratory failure with hypoxia and hypercapnia (Acute) COPD exacerbation (Acute) - Physical Exam Vitals/I&O's: Vital Signs Temp Pulse Resp BP Pulse Ox 97.5 F L 95 29 H 139/75 H 92 06/16/19 16:38 06/16/19 19:00 06/16/19 19:00 06/16/19 19:00 06/16/19 19:00 Oxygen Flow Rate (L/min) 15 Oxygen Delivery Method Mechanical Ventilator Weight: 85.2 kg Body Mass Index (BMI) 34.3 Finger Stick Blood Glucose 552 General: Alert, Oriented x3, Cooperative HEENT: Atraumatic, PERRLA, EOMI, Normocephalic Neck: Supple, No JVD, Negative Carotid Bruits Lungs: Rhonchi, Short of Breath, Tachypneic, Using Accessory Muscles, Wheezes Cardiovascular: Regular rate, Normal S1, Normal S2, No murmurs Abdomen: Bowel Sounds Present, Soft, Non Tender Extremities: No edema, Capillary Refill Less than 3 Seconds Skin: No rashes, No breakdown Musculoskeletal: No Tenderness to Palpation of Joints or Extremities Neurological: Cranial nerves II-XII grossly intact Psych/Mental Status: Normal Affect, Appropriate Laboratory Results 06/16/19 16:51: WBC 11.9 H, RBC 5.12, Hgb 14.7, Hct 45.4, MCV 88.7, MCH 28.7, MCHC 32.4, RDW Std Deviation 39.2, RDW Coeff of Malcom 12.0, Plt Count 282, MPV 10.5, Immature Gran % (Auto) 0.600, Neut % (Auto) 72.7 H, Lymph % (Auto) 18.7 L, [place] % (Auto) 5.0, Eos % (Auto) 2.0, Baso % (Auto) 1.0, Absolute Neuts (auto) 8.7 H, Absolute Lymphs (auto) 2.23, Nucleated RBC % 0 06/16/19 16:51: PT 13.3, INR 1.0, APTT 25.9 06/16/19 16:51: Sodium 133 L, Potassium 3.6, Chloride 97 L, Carbon Dioxide 29.0, Anion Gap 7, BUN 9, Creatinine 0.91, Estim Creat Clear Calc 47.45, Est GFR (MDRD) Af Amer 79, Est GFR (MDRD) Non-Af 65, BUN/Creatinine Ratio 9.9 L, Glucose 400 H, Calcium 8.7, Total Bilirubin 0.30, AST 14 L, ALT 24, Alkaline Phosphatase 148 H, Troponin I 0.016, Total Protein 6.8, Albumin 3.5, Globulin 3.3, Albumin/Globulin Ratio 1.1 06/16/19 16:51: Lactic Acid 2.1 H 06/16/19 16:51: B-Natriuretic Peptide 95.7 06/16/19 17:10: Specimen Type KAILASH, Sample Site OTHER, O2 % 40, VBG pH 7.30 L, VBG pO2 34, VBG O2 Sat (Calc) 57, VBG O2 Content 33, VBG Base Excess 5 H, POC Mix VBG pCO2 Pt Tmp 64.1 H, O2 Delivery Device Bi / C PAP, EPAP 6, IPAP 12, Blood Gas Notified Whom ED , Blood Gas Notified Time 1700 Assessment/Plan All Active Problems (Last Reviewed 06/16/19 @ 20:18 by Yuan Singh MD) Acute respiratory failure with hypoxia and hypercapnia (Acute) COPD exacerbation (Acute) Hyperglycemia (Acute) The patient is a 68 year old F with a significant history of hypertension; depression; diabetes mellitus; tobacco abuse; CAD status post coronary stent; COPD with home nightly oxygen use who presented to the emergency department with sudden shortness of breath ; wheezing; productive cough was found to be grunting on presentation and also had tachypnea and required consistent with acute on chronic respiratory failure secondary to COPD exacerbation. Acute on chronic respiratory failure secondary to COPD exacerbation. With use of accessory muscles of respiration setting; tachypnea. Patient required nonrebreather mask and later BiPAP in the emergency department. Continue BiPAP as necessary. When off BiPAP place on supplemental oxygen to keep oxygen saturation more than 92%. Of note at the time of examination patient was on 4 L nasal cannula. CXR independently reviewed confirms no acute cardiopulmonary process. It showed hyperinflation with flattening of diaphragm. Scheduled DuoNeb Albuterol as needed Received Solu-Medrol at emergency department. Solu-Medrol continued Because of his multiple allergies Doxycycline was picked as the antibiotics. Doxycycline continued. Chest physiotherapy ordered Mucinex ordered Monitor BMP and CBC Diabetes mellitus with acute hyperglycemia. On presentation her blood glucose was 400. Home basal insulin continued. On home correction scale insulin. Will check Accu-Chek q. ACH S and 2 AM in order correction scale insulin. Potassium on admission was 3.6. Supplement. Lactic acidosis Likely secondary to hypoxia Trend Treat COPD. CAD status post stenting Aspirin; Plavix and Lipitor continued Losartan and metoprolol continued Depression and anxiety Citalopram and risperidone continued Hypertension On presentation her blood pressure was not within goal Metoprolol and lisinopril continued PRN Hydralazine ordered Tobacco abuse Counseled Declined nicotine patch. DVT prophylaxis Subcutaneous Lovenox Code Visit Inpatient E&M: 67774 Init Hosp L3
[2019-06-16 21:07] LABS: Reflex Lactate? Y
[2019-06-16] MEDS: 0.9% Saline Lock 10 ML Syringe IV (21:38)
[2019-06-16] MEDS: Insulin Lispro 100 UNIT/ML INSULN.PEN SC ×2 (21:39→22:47)
[2019-06-16] MEDS: Atorvastatin Calcium 80 MG Tablet PO (21:42)
[2019-06-16] MEDS: guaiFENesin 1,200 MG Tablet 1200 MG PO (21:43)
[2019-06-16] MEDS: Metoprolol Tartrate 25 MG Tablet 12.5 MG PO (21:43)
[2019-06-16] MEDS: RisperiDONE 1 MG Tablet PO (21:43)
[2019-06-16] MEDS: Citalopram 40 MG TABLET PO (21:45)
[2019-06-16 22:01] LABS: Bedside Glucose 500 mg/dL (70-110)
[2019-06-16 22:17] LABS: Lactic Acid 1.7 mmol/L (0.4-2.0)
--- NOTE | 2019-06-16 22:30 | CPS ---
pt refusing BIPAP
[2019-06-17] VITALS (16 sets, daily range): BP systolic 110–144; BP diastolic 46–71; PULSE 59–84; RESP 16–20; TEMP 36.3–36.6; O2SAT 93–97
[2019-06-17] MEDS: Insulin Lispro 100 UNIT/ML INSULN.PEN SC ×4 (02:45→15:51)
[2019-06-17 02:56] LABS: Bedside Glucose 304 mg/dL (70-110)
[2019-06-17 06:24] LABS: Absolute Lymphocyte Count 1.27 X10^3/uL (0.83-4.51); Absolute Neutrophil Count 13.3 X10^3/uL (2.0-7.7); Basophil# 0.05 X10^3/uL; Basophil% 0.3 % (0-1); Eosinophil# 0.01 X10^3/uL; Eosinophils% 0.1 % (0-5); Hematocrit 40.1 % (37-47); Hemoglobin 13.2 g/dL (12.0-15.0); Lymphocyte # 1.27 X10^3/ul (4.0); Lymphocyte % 8.3 % (19-41); Mean Corp Hgb Conc 32.9 g/dL (32-36); Mean Corpuscular Hgb 28.8 pg (27.0-32.0); Mean Corpuscular Volume 87.4 fL (81-99); Mean Platelet Vol. 10.9 fl (6.2-12.0); Monocyte# 0.57 X10^3/uL; Monocyte% 3.7 % (0-10); NRBC Flagged by Analyzer 0 % (0-5); Neutrophil # 13.26 X10^3/uL (2.7-7.7); Neutrophil % 86.7 % (47-70); Platelet Count 273 K/mm3 (150-450); RBC Distribution Width SD 38.5 fl (35.1-43.9); Red Blood Count 4.59 M/mm3 (4.2-5.4); White Blood Count 15.3 K/mm3 (4.4-11.0)
[2019-06-17] MEDS: Doxycycline 100 MG CAPSULE PO ×2 (06:33→18:02)
[2019-06-17] MEDS: 0.9% Saline Lock 10 ML Syringe IV ×3 (06:33→21:04)
[2019-06-17 06:45] LABS: Bedside Glucose 271 mg/dL (70-110)
[2019-06-17] MEDS: Ipratropium/Albuterol Sulfate 3 ML AMPUL.NEB INHALATION ×3 (06:45→19:35)
[2019-06-17 06:48] LABS: Anion Gap 9 (5-15); BUN 11 mg/dL (7-18); BUN/Creat Ratio 13.9 RATIO (10-20); Calcium,Total 9.1 mg/dL (8.5-10.1); Chloride 99 mmol/L (98-107); Creatinine, Serum 0.79 mg/dL (0.55-1.02); EST Glomerular Filtration Rate 77 mL/min (>60); Est Glom Filt Rate - Afr Amer 93 mL/min (>60); Estimated Creatinine Clearance 43.18 ml/min; Glucose 308 mg/dL (74-106); Sodium Level 137 mmol/L (136-145)
[2019-06-17] MEDS: Clopidogrel Bisulfate 75 MG Tablet PO (10:28)
[2019-06-17] MEDS: Metoprolol Tartrate 25 MG Tablet 12.5 MG PO ×2 (10:28→21:04)
[2019-06-17] MEDS: guaiFENesin 1,200 MG Tablet 1200 MG PO ×2 (10:28→21:04)
[2019-06-17] MEDS: Pantoprazole Sodium 20 MG Tablet PO (10:28)
[2019-06-17] MEDS: Losartan Potassium 25 MG Tablet PO (10:28)
[2019-06-17] MEDS: Aspirin E.C. 81 MG Tablet PO (10:28)
[2019-06-17] MEDS: Enoxaparin 40 MG/0.4 ML Syringe SC (10:30)
[2019-06-17] MEDS: Docusate Sodium 100 MG Capsule PO ×2 (10:36→21:04)
[2019-06-17] MEDS: Fluticasone 0.05% 1 SPRAY NASAL.SRY NASAL ×2 (10:36→21:05)
--- NOTE | 2019-06-17 10:57 | PCM.PROGNOTE ---
<July Reyna - Last Filed: 06/17/19 11:17> Patient Problems: Active and Suspected Problems (Last Reviewed 06/16/19 @ 20:47 by Yuan Singh MD) Acute respiratory failure with hypoxia and hypercapnia (Acute) COPD exacerbation (Acute) Subjective: Patient seen and examined. Reports intermittent harsh cough, productive with occasional hemoptysis. Patient reports breathing overall improving. - Physical Exam Vitals/I&O's: Vital Signs Temp Pulse Resp BP Pulse Ox 97.4 F L 72 20 H 131/46 H 97 06/17/19 08:50 06/17/19 10:28 06/17/19 08:50 06/17/19 10:28 06/17/19 08:50 Oxygen Flow Rate (L/min) 4 Oxygen Delivery Method Nasal Cannula Weight: 179 lb 3.773 oz Body Mass Index (BMI) 32.8 Finger Stick Blood Glucose 552 Intake and Output for Last 24 Hours 06/15/19 06/16/19 06/17/19 23:59 23:59 23:59 Intake Total 900 / 900 Balance 900 / 900 General: Alert, Oriented x3, Cooperative HEENT: Atraumatic, PERRLA, EOMI, Normocephalic Oral: Dry Mucosa Neck: Supple, No JVD, Negative Carotid Bruits Lungs: Diminished, Wheezes Cardiovascular: Regular rate, Regular Rhythm, Normal S1, Normal S2, No murmurs Abdomen: Bowel Sounds Present, Soft, Non Tender, Non-Distended Extremities: No clubbing, No cyanosis, No edema, Capillary Refill Less than 3 Seconds Skin: No rashes, No breakdown Musculoskeletal: No Tenderness to Palpation of Joints or Extremities Neurological: Cranial nerves II-XII grossly intact, Neuro grossly intact Psych/Mental Status: Normal Affect, Appropriate Laboratory Results 06/16/19 16:51: WBC 11.9 H, RBC 5.12, Hgb 14.7, Hct 45.4, MCV 88.7, MCH 28.7, MCHC 32.4, RDW Std Deviation 39.2, RDW Coeff of Malcom 12.0, Plt Count 282, MPV 10.5, Immature Gran % (Auto) 0.600, Neut % (Auto) 72.7 H, Lymph % (Auto) 18.7 L, [place] % (Auto) 5.0, Eos % (Auto) 2.0, Baso % (Auto) 1.0, Absolute Neuts (auto) 8.7 H, Absolute Lymphs (auto) 2.23, Nucleated RBC % 0 06/16/19 16:51: PT 13.3, INR 1.0, APTT 25.9 06/16/19 16:51: Sodium 133 L, Potassium 3.6, Chloride 97 L, Carbon Dioxide 29.0, Anion Gap 7, BUN 9, Creatinine 0.91, Estim Creat Clear Calc 47.45, Est GFR (MDRD) Af Amer 79, Est GFR (MDRD) Non-Af 65, BUN/Creatinine Ratio 9.9 L, Glucose 400 H, Calcium 8.7, Total Bilirubin 0.30, AST 14 L, ALT 24, Alkaline Phosphatase 148 H, Troponin I 0.016, Total Protein 6.8, Albumin 3.5, Globulin 3.3, Albumin/Globulin Ratio 1.1 06/16/19 16:51: Lactic Acid 2.1 H 06/16/19 16:51: B-Natriuretic Peptide 95.7 06/16/19 17:10: Specimen Type KAILASH, Sample Site OTHER, O2 % 40, VBG pH 7.30 L, VBG pO2 34, VBG O2 Sat (Calc) 57, VBG O2 Content 33, VBG Base Excess 5 H, POC Mix VBG pCO2 Pt Tmp 64.1 H, O2 Delivery Device Bi / C PAP, EPAP 6, IPAP 12, Blood Gas Notified Whom ED , Blood Gas Notified Time 1700 06/16/19 21:35: POC Glucose 500 H* 06/16/19 21:41: Lactic Acid 1.7 06/17/19 02:41: POC Glucose 304 H 06/17/19 05:38: WBC 15.3 H, RBC 4.59, Hgb 13.2, Hct 40.1, MCV 87.4, MCH 28.8, MCHC 32.9, RDW Std Deviation 38.5, RDW Coeff of Malcom 12.0, Plt Count 273, MPV 10.9, Immature Gran % (Auto) 0.900, Neut % (Auto) 86.7 H, Lymph % (Auto) 8.3 L, [place] % (Auto) 3.7, Eos % (Auto) 0.1, Baso % (Auto) 0.3, Absolute Neuts (auto) 13.3 H, Absolute Lymphs (auto) 1.27, Nucleated RBC % 0 06/17/19 05:38: Sodium 137, Potassium 4.0, Chloride 99, Carbon Dioxide 29.0, Anion Gap 9, BUN 11, Creatinine 0.79, Estim Creat Clear Calc 43.18, Est GFR (MDRD) Af Amer 93, Est GFR (MDRD) Non-Af 77, BUN/Creatinine Ratio 13.9, Glucose 308 H, Calcium 9.1 06/17/19 06:32: POC Glucose 271 H Current Medications Acetaminophen (Tylenol) 650 mg PO Q6H PRN PRN PRN Reason: Pain Score 1-3/Temp > 100.7 F Albuterol Sulfate (Ventolin Aerosols) 2.5 mg INHALATION Q2H PRN PRN PRN Reason: SOB/Wheezing Albuterol/Ipratropium (Duoneb) 3 ml INHALATION Q4HWA.RT [facility] Last Admin: 06/17/19 06:45 Dose: 3 ml Documented by: Alprazolam (Xanax) 1 mg PO TID PRN PRN PRN Reason: ANXIETY Aspirin (Ecotrin) 81 mg PO DAILY@0800 [facility] Last Admin: 06/17/19 10:28 Dose: 81 mg Documented by: Atorvastatin Calcium (Lipitor) 80 mg PO QHS [facility] Last Admin: 06/16/19 21:42 Dose: 80 mg Documented by: Citalopram Hydrobromide (Celexa) 40 mg PO QHS [facility] Last Admin: 06/16/19 21:45 Dose: 40 mg Documented by: Clopidogrel Bisulfate (Plavix) 75 mg PO DAILY [facility] Last Admin: 06/17/19 10:28 Dose: 75 mg Documented by: Dextrose (D50w Syringe) 0 gm IV X1 PRN; Protocol PRN Reason: Hypoglycemia Docusate Sodium (Colace) 100 mg PO BID [facility] Last Admin: 06/17/19 10:36 Dose: 100 mg Documented by: Doxycycline Monohydrate (Doxycycline) 100 mg PO BID@0600,1900 [facility] Last Admin: 06/17/19 06:33 Dose: 100 mg Documented by: Enoxaparin Sodium (Lovenox) 40 mg SC DAILY@1000 [facility] Last Admin: 06/17/19 10:30 Dose: 40 mg Documented by: Fluticasone Propionate (Flonase Nasal Potrero) 1 spray NASAL BID [facility] Last Admin: 06/17/19 10:36 Dose: 1 spray Documented by: Glucagon () 1 mg IM .X1 PRN PRN Reason: Hypoglycemia Guaifenesin (Mucinex) 1,200 mg PO BID [facility] Last Admin: 06/17/19 10:28 Dose: 1,200 mg Documented by: Hydralazine HCl (Apresoline Iv) 5 mg IV Q4H PRN PRN PRN Reason: SBP > 160 Insulin Glargine (Lantus ([facility])) 32 units SC QHS [facility] Last Admin: 06/16/19 21:38 Dose: 32 units Documented by: Insulin Human Lispro (Humalog Kwikpen ([facility])) 0 unit SC ACHS & 0200 [facility]; Protocol Last Admin: 06/17/19 06:34 Dose: 9 units Documented by: Losartan Potassium (Cozaar) 25 mg PO DAILY [facility] Last Admin: 06/17/19 10:28 Dose: 25 mg Documented by: Magnesium Hydroxide (Milk Of Magnesia) 30 ml PO DAILY PRN PRN PRN Reason: Constipation Methylprednisolone (Solu-Medrol) 40 mg IV Q8 [facility] Last Admin: 06/17/19 06:33 Dose: 40 mg Documented by: Metoprolol Tartrate (Lopressor (Beta Bernarda)) 12.5 mg PO BID [facility] Last Admin: 06/17/19 10:28 Dose: 12.5 mg Documented by: Ondansetron HCl (Zofran) 4 mg IV Q8H PRN PRN PRN Reason: NAUSEA/VOMITING Pantoprazole Sodium (Protonix) 20 mg PO DAILY [facility] Last Admin: 06/17/19 10:28 Dose: 20 mg Documented by: Risperidone (Risperdal) 1 mg PO QHS [facility] Last Admin: 06/16/19 21:43 Dose: 1 mg Documented by: Sodium Chloride () 10 - 40 ml IV UD PRN PRN Reason: SALINE FLUSH Last Admin: 06/17/19 06:33 Dose: 20 ml Documented by: Medical Necessity - Tobacco Use Smoking Status: Current every day smoker Tobacco Use: Cigarettes Assessment/Plan All Active Problems (Last Reviewed 06/16/19 @ 20:47 by Yuan Singh MD) Acute respiratory failure with hypoxia and hypercapnia (Acute) COPD exacerbation (Acute) Hyperglycemia (Acute) 1. Acute COPD exacerbation with chronic hypoxic respiratory failure-chest x-ray admission with no acute findings. Continue IV Solu-Medrol. Oral doxycycline. Check respiratory panel. Albuterol and DuoNeb aerosols. Patient follows with Dr. Nuno. Continue supplement oxygen to maintain O2 at or above 90%. 2. Type 2 diabetes [place]-[id number]-[id number] ACHS with SSI. Continue home Lantus regimen. Glucose uncontrolled. Check hemoglobin A1C. 3. CAD with history of PCI/RACHEL to ostial diagonal and mid LAD December 2018-follows with Dr. Wilcox. Continue aspirin, statin, Plavix, losartan, metoprolol. 4. Hypertension-stable, continue home losartan and metoprolol regimen. 5. Depression/anxiety-continue home citalopram, risperidone regimen. 6. Muscular dystrophy- PT/OT. 7. Tobacco dependence-encouraged cessation. 8. Obesity-encouraged diet and lifestyle modifications. 9. GERD-continue omeprazole regimen. DVT prophylaxis- Lovenox sc This patient was seen by SYMONE Cobb under the supervision of Dr. Armstrong. <Kimberly Armstrong - Last Filed: 06/17/19 11:46> - Physical Exam Vitals/I&O's: Vital Signs Temp Pulse Resp BP Pulse Ox 97.4 F L 70 20 H 131/46 H 97 06/17/19 08:50 06/17/19 10:59 06/17/19 08:50 06/17/19 10:28 06/17/19 08:50 Oxygen Flow Rate (L/min) 4 Oxygen Delivery Method Nasal Cannula Weight: 179 lb 3.773 oz Body Mass Index (BMI) 32.8 Finger Stick Blood Glucose 552 Intake and Output for Last 24 Hours 06/15/19 06/16/19 06/17/19 23:59 23:59 23:59 Intake Total 900 / 900 Balance 900 / 900 Laboratory Results 06/16/19 16:51: WBC 11.9 H, RBC 5.12, Hgb 14.7, Hct 45.4, MCV 88.7, MCH 28.7, MCHC 32.4, RDW Std Deviation 39.2, RDW Coeff of Malcom 12.0, Plt Count 282, MPV 10.5, Immature Gran % (Auto) 0.600, Neut % (Auto) 72.7 H, Lymph % (Auto) 18.7 L, [place] % (Auto) 5.0, Eos % (Auto) 2.0, Baso % (Auto) 1.0, Absolute Neuts (auto) 8.7 H, Absolute Lymphs (auto) 2.23, Nucleated RBC % 0 06/16/19 16:51: PT 13.3, INR 1.0, APTT 25.9 06/16/19 16:51: Sodium 133 L, Potassium 3.6, Chloride 97 L, Carbon Dioxide 29.0, Anion Gap 7, BUN 9, Creatinine 0.91, Estim Creat Clear Calc 47.45, Est GFR (MDRD) Af Amer 79, Est GFR (MDRD) Non-Af 65, BUN/Creatinine Ratio 9.9 L, Glucose 400 H, Calcium 8.7, Total Bilirubin 0.30, AST 14 L, ALT 24, Alkaline Phosphatase 148 H, Troponin I 0.016, Total Protein 6.8, Albumin 3.5, Globulin 3.3, Albumin/Globulin Ratio 1.1 06/16/19 16:51: Lactic Acid 2.1 H 06/16/19 16:51: B-Natriuretic Peptide 95.7 06/16/19 17:10: Specimen Type KAILASH, Sample Site OTHER, O2 % 40, VBG pH 7.30 L, VBG pO2 34, VBG O2 Sat (Calc) 57, VBG O2 Content 33, VBG Base Excess 5 H, POC Mix VBG pCO2 Pt Tmp 64.1 H, O2 Delivery Device Bi / C PAP, EPAP 6, IPAP 12, Blood Gas Notified Whom ED , Blood Gas Notified Time 1700 06/16/19 21:35: POC Glucose 500 H* 06/16/19 21:41: Lactic Acid 1.7 06/17/19 02:41: POC Glucose 304 H 06/17/19 05:38: WBC 15.3 H, RBC 4.59, Hgb 13.2, Hct 40.1, MCV 87.4, MCH 28.8, MCHC 32.9, RDW Std Deviation 38.5, RDW Coeff of Malcom 12.0, Plt Count 273, MPV 10.9, Immature Gran % (Auto) 0.900, Neut % (Auto) 86.7 H, Lymph % (Auto) 8.3 L, [place] % (Auto) 3.7, Eos % (Auto) 0.1, Baso % (Auto) 0.3, Absolute Neuts (auto) 13.3 H, Absolute Lymphs (auto) 1.27, Nucleated RBC % 0 06/17/19 05:38: Sodium 137, Potassium 4.0, Chloride 99, Carbon Dioxide 29.0, Anion Gap 9, BUN 11, Creatinine 0.79, Estim Creat Clear Calc 43.18, Est GFR (MDRD) Af Amer 93, Est GFR (MDRD) Non-Af 77, BUN/Creatinine Ratio 13.9, Glucose 308 H, Calcium 9.1 06/17/19 05:38: Hemoglobin A1c Pending 06/17/19 06:32: POC Glucose 271 H Current Medications Acetaminophen (Tylenol) 650 mg PO Q6H PRN PRN PRN Reason: Pain Score 1-3/Temp > 100.7 F Albuterol Sulfate (Ventolin Aerosols) 2.5 mg INHALATION Q2H PRN PRN PRN Reason: SOB/Wheezing Albuterol/Ipratropium (Duoneb) 3 ml INHALATION Q4HWA.RT [facility] Last Admin: 06/17/19 06:45 Dose: 3 ml Documented by: Alprazolam (Xanax) 1 mg PO TID PRN PRN PRN Reason: ANXIETY Aspirin (Ecotrin) 81 mg PO DAILY@0800 [facility] Last Admin: 06/17/19 10:28 Dose: 81 mg Documented by: Atorvastatin Calcium (Lipitor) 80 mg PO QHS [facility] Last Admin: 06/16/19 21:42 Dose: 80 mg Documented by: Citalopram Hydrobromide (Celexa) 40 mg PO QHS [facility] Last Admin: 06/16/19 21:45 Dose: 40 mg Documented by: Clopidogrel Bisulfate (Plavix) 75 mg PO DAILY [facility] Last Admin: 06/17/19 10:28 Dose: 75 mg Documented by: Dextrose (D50w Syringe) 0 gm IV X1 PRN; Protocol PRN Reason: Hypoglycemia Docusate Sodium (Colace) 100 mg PO BID [facility] Last Admin: 06/17/19 10:36 Dose: 100 mg Documented by: Doxycycline Monohydrate (Doxycycline) 100 mg PO BID@0600,1900 [facility] Last Admin: 06/17/19 06:33 Dose: 100 mg Documented by: Enoxaparin Sodium (Lovenox) 40 mg SC DAILY@1000 [facility] Last Admin: 06/17/19 10:30 Dose: 40 mg Documented by: Fluticasone Propionate (Flonase Nasal Potrero) 1 spray NASAL BID [facility] Last Admin: 06/17/19 10:36 Dose: 1 spray Documented by: Glucagon () 1 mg IM .X1 PRN PRN Reason: Hypoglycemia Guaifenesin (Mucinex) 1,200 mg PO BID [facility] Last Admin: 06/17/19 10:28 Dose: 1,200 mg Documented by: Hydralazine HCl (Apresoline Iv) 5 mg IV Q4H PRN PRN PRN Reason: SBP > 160 Insulin Glargine (Lantus ([facility])) 32 units SC QHS [facility] Last Admin: 06/16/19 21:38 Dose: 32 units Documented by: Insulin Human Lispro (Humalog Kwikpen ([facility])) 0 unit SC ACHS & 0200 [facility]; Protocol Last Admin: 06/17/19 06:34 Dose: 9 units Documented by: Losartan Potassium (Cozaar) 25 mg PO DAILY [facility] Last Admin: 06/17/19 10:28 Dose: 25 mg Documented by: Magnesium Hydroxide (Milk Of Magnesia) 30 ml PO DAILY PRN PRN PRN Reason: Constipation Methylprednisolone (Solu-Medrol) 40 mg IV Q8 [facility] Last Admin: 06/17/19 06:33 Dose: 40 mg Documented by: Metoprolol Tartrate (Lopressor (Beta Bernarda)) 12.5 mg PO BID [facility] Last Admin: 06/17/19 10:28 Dose: 12.5 mg Documented by: Ondansetron HCl (Zofran) 4 mg IV Q8H PRN PRN PRN Reason: NAUSEA/VOMITING Pantoprazole Sodium (Protonix) 20 mg PO DAILY [facility] Last Admin: 06/17/19 10:28 Dose: 20 mg Documented by: Risperidone (Risperdal) 1 mg PO QHS [facility] Last Admin: 06/16/19 21:43 Dose: 1 mg Documented by: Sodium Chloride () 10 - 40 ml IV UD PRN PRN Reason: SALINE FLUSH Last Admin: 06/17/19 06:33 Dose: 20 ml Documented by: Assessment/Plan Patient seen by July ASHBY under my supervision Patient was admitted with a complaint of sudden onset shortness of breath was started after she stopped smoking. He had assisted wheezing and cough duct of yellowish sputum. Patient is on 4 L of oxygen overnight at home. On admission in the ED she was noted to be in respiratory distress and started on oxygen by nonrebreather mask and finally transitioned to BiPAP. For acute on chronic respiratory failure due to COPD exacerbation. She was started on breathing treatments and IV Solu-Medrol as well as oral doxycycline. Patient seen and examined this morning. She feels much much better today. Breathing has improved and cough is also improved. She is on her baseline 4 L of oxygen. Review of systems otherwise negative. Labs and vitals reviewed. o/e: Vital Signs Height 5 ft 2 in Weight: 179 lb 3.773 oz Weight in Pounds 179.2 lbs BMI 34.9 Pulse Ox 97 Temperature 97.4 F Pulse Rate 70 Respiratory Rate 20 Blood Pressure [BP] 144/69 Blood Pressure 131/46 Blood Pressure Position [BP] Semi-Fowlers Blood Pressure Position Semi-Fowlers General: Alert, Oriented x3, Cooperative HEENT: Atraumatic, PERRLA, EOMI, Normocephalic Oral: Dry Mucosa Neck: Supple, No JVD, Negative Carotid Bruits Lungs: Diminished, minimal wheezing and cracking in lung mera; on her baseline 4L of oxygen by nasal canula Cardiovascular: Regular rate, Regular Rhythm, Normal S1, Normal S2, No murmurs Abdomen: Bowel Sounds Present, Soft, Non Tender, Non-Distended Extremities: No clubbing, No cyanosis, No edema, Capillary Refill Less than 3 Seconds Skin: No rashes, No breakdown Musculoskeletal: No Tenderness to Palpation of Joints or Extremities Neurological: Cranial nerves II-XII grossly intact, Neuro grossly intact Psych/Mental Status: Normal Affect, Appropriate Plan is to continue with breathing treatments. Titrate oxygen to maintain saturation >90%. Continue oral doxycycline and IV solumedrol. Counselled on importance of quitting smoking. Of note, patient is a known diabetic and her A1c is 11 which indicates very poor control of her diabetes. Counseled on compliance. Will increase insulin Lantus to 40 units at bedtime. Accu-Cheks before meals at bedtime. Insulin sliding scale Rest as per July Axel, DYE WORKER-C's notes which I reviewed and endorsed. Code Visit Inpatient E&M: 45139 Subs Hosp L2
[2019-06-17 11:41] LABS: Bedside Glucose 433 mg/dL (70-110)
--- NOTE | 2019-06-17 14:49 | NURSING ---
Reviewed charting of SN Susie
--- NOTE | 2019-06-17 14:58 | NURSING ---
Reported off to primary RN, Barbara Alexis
--- NOTE | 2019-06-17 15:14 | CM.UR ---
RN CM Assessment Introduced role of RN CM to patient. Patient is alert and able to participate in RN CM Assessment. Care providers, pharmacy, and demographics verified. No family at bedside. Presentation: Became very sob when smoking a cigarette. Admit Dx: COPD exacerbation. Re-Admit: No Barriers/Issues: Motivation, especially to quit smoking. PCP: Dr. Paulino Specialists: Dr. Nuno [facility] Insurance: [place] [facility] Rx Benefit: Yes LNOK: Has her [id number] listed [facility]. confirmed that is who she wants. That is her Son's --they live in [place]. her 2nd son lives in [place]. The boys are identical twins. LW/HPOA: Does not currently have and declines information. 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 Living Arrangements: Lives alone in a 1 story apartment with 2-3 steps to enter. ADL?s: independent with all ADLs. Transportation: drives except when she is running low on gas. DME: Nebulizer and home o2 via [employer]. States she wears 4 liters when she sleeps[address] [facility] only has one tank and she doesn't even know how to use it. DME co: [employer] HHC: None previously--but does agree to home care this time. SNF: [facility]. [facility] spent 2 months there and 2 months in rehab at [facility]. Goal: Home. DC PLAN: Home with C. Lino Thompson RN, CCM.
[2019-06-17 16:01] LABS: Bedside Glucose 318 mg/dL (70-110)
[2019-06-17] MEDS: Atorvastatin Calcium 80 MG Tablet PO (21:04)
[2019-06-17] MEDS: Citalopram 40 MG TABLET PO (21:04)
[2019-06-17 21:40] LABS: Bedside Glucose 473 mg/dL (70-110)
[2019-06-17] MEDS: ALPRAZolam 0.5 MG Tablet 1 MG PO (21:52)
[2019-06-17] MEDS: RisperiDONE 1 MG Tablet PO (21:52)
[2019-06-17] MEDS: Insulin Lispro 100 UNIT/ML INSULN.PEN 20 UNIT SC (21:53)
[2019-06-18] VITALS (7 sets, daily range): BP systolic 111–123; BP diastolic 48–55; PULSE 57–82; RESP 16–20; TEMP 36.5–36.6; O2SAT 82–97
[2019-06-18] MEDS: Insulin Lispro 100 UNIT/ML INSULN.PEN SC ×2 (02:29→06:34)
[2019-06-18 02:41] LABS: Bedside Glucose 206 mg/dL (70-110)
[2019-06-18] MEDS: Doxycycline 100 MG CAPSULE PO (06:29)
[2019-06-18] MEDS: 0.9% Saline Lock 10 ML Syringe IV (06:29)
[2019-06-18 06:41] LABS: Bedside Glucose 283 mg/dL (70-110)
[2019-06-18] MEDS: Ipratropium/Albuterol Sulfate 3 ML AMPUL.NEB INHALATION (06:45)
[2019-06-18] MEDS: Aspirin E.C. 81 MG Tablet PO (09:30)
[2019-06-18] MEDS: Docusate Sodium 100 MG Capsule PO (09:30)
[2019-06-18] MEDS: Losartan Potassium 25 MG Tablet PO (09:30)
[2019-06-18] MEDS: Fluticasone 0.05% 1 SPRAY NASAL.SRY NASAL (09:31)
[2019-06-18] MEDS: guaiFENesin 1,200 MG Tablet 1200 MG PO (09:31)
[2019-06-18] MEDS: Metoprolol Tartrate 25 MG Tablet 12.5 MG PO (09:31)
[2019-06-18] MEDS: Clopidogrel Bisulfate 75 MG Tablet PO (09:32)
[2019-06-18] MEDS: Pantoprazole Sodium 20 MG Tablet PO (09:32)
--- NOTE | 2019-06-18 09:51 | PCM.DC ---
- Discharge Diagnoses Current Active Problems: Current Active and Chronic Problems (Last Reviewed 06/16/19 @ 20:47 by Yuan Singh MD) Acute respiratory failure with hypoxia and hypercapnia (Acute) COPD exacerbation (Acute) You will use the following diet at home:: Calorie/Carbohydrate Controlled (specify 1200, 1400, etc) Discharge Activity: Return to Normal Activity Call your doctor if you observe: Shortness of breath, Dizziness, Fainting spells, Chest pain Additional Instructions: Continue oxygen supplementation at home to maintain O2 at or above 90%. Allergies/Adverse Reactions: Allergies amoxicillin [Amoxicillin] Allergy (Intermediate, Verified 06/11/19 15:40) Rash gabapentin [From Neurontin] Allergy (Verified 06/11/19 15:40) Shortness of breath levofloxacin [From Levaquin] Allergy (Verified 06/11/19 15:40) Hivtj is allergic to the red dye in the pill form, states she is fine with the iv form. pseudoephedrine HCl [From Sudafed] Allergy (Verified 06/11/19 15:40) Shortness of breath red dye Allergy (Verified 06/16/19 19:32) Hives codeine Adverse Reaction (Verified 06/11/19 15:40) HEADACHE Medications to take at Discharge Risperidone [Risperdal] 1 mg PO QHS 05/23/13 Citalopram [Celexa] 40 mg PO QHS 07/04/14 ALPRAZolam [Xanax] 1 mg PO TID PRN PRN 08/25/16 Insulin Lispro [Humalog] See Protocol SQ TIDCM 08/25/16 Omeprazole [Prilosec] 20 mg PO DAILY 12/27/18 Clopidogrel Bisulfate [Plavix] 75 mg PO DAILY #90 tab 12/29/18 losartan 25 mg tablet 25 mg PO DAILY tab 01/12/19 Ipratropium [Atrovent Inhaler] 1 puff INHALATION Q4H 04/15/19 aspirin 81 mg tablet,delayed release 81 mg PO DAILY #90 tablet. 04/20/19 metoprolol tartrate 25 mg tablet 12.5 mg PO BID #90 tab 04/20/19 atorvastatin 80 mg tablet 80 mg PO QHS #90 tab 05/22/19 Insulin Glargine [Lantus SoloStar Pen] 40 units SC QHS pen 06/18/19 Ipratropium/Albuterol Sulfate [Duoneb] 3 ml INHALATION TID PRN PRN #90 ampul.neb 06/18/19 Prednisone See Taper PO DAILY #30 tab 06/18/19 The following prescriptions were given: Ipratropium/Albuterol Sulfate [Duoneb] 3 ml INHALATION TID PRN PRN #90 ampul.neb PRN Reason: Sob &/Or Wheezing Transmission Status: Pending to [facility] [address] Prednisone See Taper PO DAILY #30 tab Transmission Status: Pending to [facility] Primary Care Physician: Mike Paulino MD [Primary Care Provider] - Please follow up with your Primary Care Physician in: 1 Week Test Results: Test results from this visit will be discussed in further detail at your follow-up appointment, if applicable. Please Follow Up With: Haroon Nuno MD When: As scheduled, 07/14/2019 Proposed Discharge Date: 06/18/19
--- NOTE | 2019-06-18 09:53 | DS.PCM_ITS ---
Discharge Date and Diagnosis Date of Admission: 06/16/19 Date of Discharge: 06/18/19 - Primary Discharge Diagnosis Active and Suspected Problems (Last Reviewed 06/16/19 @ 20:47 by Yuan Singh MD) 1. Acute COPD exacerbation secondary to acute rhinovirus with chronic hypoxic respiratory failure 2. Type 2 diabetes mellitus, poorly controlled 3. CAD with history of PCI/RACHEL to ostial diagonal and mid LAD December 2018 4. Hypertension 5. Depression/anxiety 6. Muscular dystrophy 7. Tobacco dependence 8. Obesity 9. GERD - Secondary Discharge Diagnosis Chronic Problems (Last Reviewed 06/16/19 @ 20:47 by Yuan Singh MD) COPD with exacerbation (Chronic) Hypertension (Chronic) Atherosclerotic heart disease of [place] coronary artery without angina pectoris (Chronic) Double vessel CAD of the LAD and DIAG#2 Successful PTCA/RACHEL ostial DIAG with a 2.25 x 12 Promus Synergy stent; Successful PTCA/RACHEL mid LAD with a 2.5 x 20 Promus Synergy. Per DJN @ [facility] 12/08/2018 Stented coronary artery (Chronic 12/28/18) 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 Successful PTCA/RACHEL mid LAD with a 2.5 x 20 Promus Synergy, post dilated with a 2.5 x 12 NC Balloon after DIAG stent deployed; 75%-->0%, no dissection. Smoking (Chronic) Chronic respiratory failure (Chronic) On home oxygen Muscular dystrophy (Chronic) Hyponatremia (Chronic) Hypothyroidism (Chronic) COPD (chronic obstructive pulmonary disease) (Chronic) Depression (Chronic) [place] esophagus (Chronic) Postprandial bloating (Chronic) Anxiety (Chronic) Hospital Course and Treatment Imaging Results: Diagnostic Data Chest X-Ray 06/16/19 17:00 IMPRESSION: 1. No acute findings or change since prior. 2. Left lower lung, presumably lingular and adjacent mediastinal/pleural changes, chronic. Electronically Signed: Andrade Bagley, at 17:20 EST Tel , Service support , Operations: None Procedures: None Summary of Care Provided: The patient is a 68 year old F admitted 06/16/2019 due to shortness of breath. 1. Acute COPD exacerbation secondary to acute rhinovirus with chronic hypoxic respiratory failure-chest x-ray admission with no acute findings. Patient follows with Dr. Nuno. Patient wears 4 L intermittently at home, recommend continuous supplemental oxygen, wean as tolerated to maintain O2 at or above 90%. Respiratory panel positive for rhinovirus. Prednisone taper at discharge. Continue DuoNeb treatments as needed. Follow-up with primary care provider in 1 week. 2. Type 2 diabetes mellitus-hemoglobin A1c 11%. Home Lantus regimen increased to 40 units nightly. Counseled patient on compliance with carb controlled diet and insulin regimen. 3. CAD with history of PCI/RACHEL to ostial diagonal and mid LAD December 2018-follows with Dr. Wilcox. Continue aspirin, statin, Plavix, losartan, metoprolol. 4. Hypertension-stable, continue home losartan and metoprolol regimen. 5. Depression/anxiety-continue home citalopram, risperidone regimen. 6. Muscular dystrophy 7. Tobacco dependence-encouraged cessation. 8. Obesity-encouraged diet and lifestyle modifications. 9. GERD-continue omeprazole regimen. General: Alert, Oriented x3, Cooperative HEENT: Atraumatic, PERRLA, EOMI, Normocephalic Oral: Dry Mucosa Neck: Supple, No JVD, Negative Carotid Bruits Lungs: Diminished, clear to auscultation Cardiovascular: Regular rate, Regular Rhythm, Normal S1, Normal S2, No murmurs Abdomen: Bowel Sounds Present, Soft, Non Tender, Non-Distended Extremities: No clubbing, No cyanosis, No edema, Capillary Refill Less than 3 Seconds Skin: No rashes, No breakdown Musculoskeletal: No Tenderness to Palpation of Joints or Extremities Neurological: Cranial nerves II-XII grossly intact, Neuro grossly intact Psych/Mental Status: Normal Affect, Appropriate Patient seen and examined prior to discharge. Physical assessment as noted above. Patient is stable for discharge with follow up recommendations as noted above. This patient was seen by SYMONE Cobb under the supervision of Dr. Lee. - Physical Exam Vitals/I&O's: Vital Signs Temp Pulse Resp BP Pulse Ox 97.7 F L 70 20 H 123/55 H 97 06/18/19 09:30 06/18/19 09:31 06/18/19 09:30 06/18/19 09:30 06/18/19 09:30 Oxygen Flow Rate (L/min) 4 Oxygen Delivery Method Nasal Cannula Weight: 179 lb 3.773 oz Body Mass Index (BMI) 32.8 Finger Stick Blood Glucose 552 Intake and Output for Last 24 Hours 06/16/19 06/17/19 06/18/19 23:59 23:59 23:59 Intake Total 900 / 900 850 / 850 50 / 50 Balance 900 / 900 850 / 850 50 / 50 Microbiology Past 72 Hours 06/17/19 11:00 Mucosa - Nasopharyngeal Respiratory Panel (PCR) - Final Rhinovirus Laboratory Results 06/17/19 05:38: Hemoglobin A1c 11.0 H 06/17/19 11:33: POC Glucose 433 H 06/17/19 15:50: POC Glucose 318 H 06/17/19 21:02: POC Glucose 473 H* 06/18/19 02:28: POC Glucose 206 H 06/18/19 06:33: POC Glucose 283 H Current Medications Acetaminophen (Tylenol) 650 mg PO Q6H PRN PRN PRN Reason: Pain Score 1-3/Temp > 100.7 F Albuterol Sulfate (Ventolin Aerosols) 2.5 mg INHALATION Q2H PRN PRN PRN Reason: SOB/Wheezing Albuterol/Ipratropium (Duoneb) 3 ml INHALATION Q4HWA.RT COUNTS INCLUDE 234 BEDS AT THE [facility] Last Admin: 06/18/19 06:45 Dose: 3 ml Documented by: Alprazolam (Xanax) 1 mg PO TID PRN PRN PRN Reason: ANXIETY Last Admin: 06/17/19 21:52 Dose: 1 mg Documented by: Aspirin (Ecotrin) 81 mg PO DAILY@0800 COUNTS INCLUDE 234 BEDS AT THE [facility] Last Admin: 06/18/19 09:30 Dose: 81 mg Documented by: Atorvastatin Calcium (Lipitor) 80 mg PO QHS COUNTS INCLUDE 234 BEDS AT THE [facility] Last Admin: 06/17/19 21:04 Dose: 80 mg Documented by: Citalopram Hydrobromide (Celexa) 40 mg PO QHS COUNTS INCLUDE 234 BEDS AT THE [facility] Last Admin: 06/17/19 21:04 Dose: 40 mg Documented by: Clopidogrel Bisulfate (Plavix) 75 mg PO DAILY COUNTS INCLUDE 234 BEDS AT THE [facility] Last Admin: 06/18/19 09:32 Dose: 75 mg Documented by: Dextrose (D50w Syringe) 0 gm IV X1 PRN; Protocol PRN Reason: Hypoglycemia Docusate Sodium (Colace) 100 mg PO BID COUNTS INCLUDE 234 BEDS AT THE [facility] Last Admin: 06/18/19 09:30 Dose: 100 mg Documented by: Doxycycline Monohydrate (Doxycycline) 100 mg PO BID@0600,1900 COUNTS INCLUDE 234 BEDS AT THE [facility] Last Admin: 06/18/19 06:29 Dose: 100 mg Documented by: Enoxaparin Sodium (Lovenox) 40 mg SC DAILY@1000 COUNTS INCLUDE 234 BEDS AT THE [facility] Last Admin: 06/18/19 09:36 Dose: Not Given Documented by: Fluticasone Propionate (Flonase Nasal [place]) 1 spray NASAL BID COUNTS INCLUDE 234 BEDS AT THE [facility] Last Admin: 06/18/19 09:31 Dose: 1 spray Documented by: Glucagon () 1 mg IM .X1 PRN PRN Reason: Hypoglycemia Guaifenesin (Mucinex) 1,200 mg PO BID COUNTS INCLUDE 234 BEDS AT THE [facility] Last Admin: 06/18/19 09:31 Dose: 1,200 mg Documented by: Hydralazine HCl (Apresoline Iv) 5 mg IV Q4H PRN PRN PRN Reason: SBP > 160 Insulin Glargine (Lantus (Bkc)) 40 units SC QHS COUNTS INCLUDE 234 BEDS AT THE [facility] Last Admin: 06/17/19 21:52 Dose: 40 u Documented by: Insulin Human Lispro (Humalog Kwikpen (Bk)) 0 unit SC ACHS & 0200 COUNTS INCLUDE 234 BEDS AT THE [facility]; Protocol Last Admin: 06/18/19 06:34 Dose: 9 units Documented by: Losartan Potassium (Cozaar) 25 mg PO DAILY COUNTS INCLUDE 234 BEDS AT THE [facility] Last Admin: 06/18/19 09:30 Dose: 25 mg Documented by: Magnesium Hydroxide (Milk Of Magnesia) 30 ml PO DAILY PRN PRN PRN Reason: Constipation Methylprednisolone (Solu-Medrol) 40 mg IV Q8 COUNTS INCLUDE 234 BEDS AT THE [facility] Last Admin: 06/18/19 06:29 Dose: 40 mg Documented by: Metoprolol Tartrate (Lopressor (Beta Bernarda)) 12.5 mg PO BID COUNTS INCLUDE 234 BEDS AT THE [facility] Last Admin: 06/18/19 09:31 Dose: 12.5 mg Documented by: Ondansetron HCl (Zofran) 4 mg IV Q8H PRN PRN PRN Reason: NAUSEA/VOMITING Pantoprazole Sodium (Protonix) 20 mg PO DAILY COUNTS INCLUDE 234 BEDS AT THE [facility] Last Admin: 06/18/19 09:32 Dose: 20 mg Documented by: Risperidone (Risperdal) 1 mg PO QHS COUNTS INCLUDE 234 BEDS AT THE [facility] Last Admin: 06/17/19 21:52 Dose: 1 mg Documented by: Sodium Chloride () 10 - 40 ml IV UD PRN PRN Reason: SALINE FLUSH Last Admin: 06/18/19 06:29 Dose: 10 ml Documented by: Discharge Diet: Carb Control Diet Discharge Activity: Return to Normal Activity Call your doctor if you observe: Shortness of breath, Dizziness, Fainting spells, Chest pain Home Medications: Medications to take at Discharge Risperidone [Risperdal] 1 mg PO QHS 05/23/13 Citalopram [Celexa] 40 mg PO QHS 07/04/14 ALPRAZolam [Xanax] 1 mg PO TID PRN PRN 08/25/16 Insulin Lispro [Humalog] See Protocol SQ TIDCM 08/25/16 Omeprazole [Prilosec] 20 mg PO DAILY 12/27/18 Clopidogrel Bisulfate [Plavix] 75 mg PO DAILY #90 tab 12/29/18 losartan 25 mg tablet 25 mg PO DAILY tab 01/12/19 Ipratropium [Atrovent Inhaler] 1 puff INHALATION Q4H 04/15/19 aspirin 81 mg tablet,delayed release 81 mg PO DAILY #90 tablet. 04/20/19 metoprolol tartrate 25 mg tablet 12.5 mg PO BID #90 tab 04/20/19 atorvastatin 80 mg tablet 80 mg PO QHS #90 tab 05/22/19 Insulin Glargine [Lantus SoloStar Pen] 40 units SC QHS pen 06/18/19 Ipratropium/Albuterol Sulfate [Duoneb] 3 ml INHALATION TID PRN PRN #90 ampul.neb 06/18/19 Prednisone See Taper PO DAILY #30 tab 06/18/19 Following Prescrptions Were Given to Patient: Ipratropium/Albuterol Sulfate [Duoneb] 3 ml INHALATION TID PRN PRN #90 ampul.neb PRN Reason: Sob &/Or Wheezing Transmission Status: Pending to -[facility] Prednisone See Taper PO DAILY #30 tab Transmission Status: Pending to [facility] Primary Care Physician: Mike Paulino MD [Primary Care Provider] - Please follow up with your Primary Care Physician in: 1 Week Please Follow Up With: Haroon Nuno MD When: As scheduled, 07/14/2019 Disposition: Home Minutes spent on discharge:: 35 Patient Condition:: Stable Medical Necessity - Tobacco Use Smoking Status: Current every day smoker Tobacco Use: Cigarettes Meaningful Use Info Meaningful Use Diagnoses (Choose all that apply): None applicable
--- NOTE | 2019-06-19 15:42 | CASEMGMT ---
HARLEEN LUCIANO Discharge Follow-Up Phone Call. Amaris: 14 Strata: 4 Discharge Date: 06/18/19 Adm Dx: Acute Exac COPD Call to pt to inquire about how she has been doing since being discharged from the hospital. Pt states she is still having some difficulty breathing but states she feels like it is improving and that she is :just taking things slowly: Pt advised, if her symptoms worsen, to contact her PCP or to return to [facility] and she voices understanding. Noted on HARLEEN LUCIANO admission assessment that pt was interested in HHC. Discussed HHC with pt and she state she [facility] Pt states she does not feel like she needs/wants therapy or an aide, but is agreeable to intermediate and states she needs a shower chair. Also discussed CCN with pt and she is also interested in CCN. HARLEEN LUCIANO thanked pt for choosing [facility] Call placed to April @ [facility] and she states they have received a referral for HHC and plan on seeing pt/start of care tomorrow 06/20. She was also made aware pt states she needs a shower chair. CCN referral placed. Call placed to CCN and spoke with Gavin/referral made. Gavin was also made aware [facility] start of care to begin tomorrow 06/20/19.
--- NOTE | 2019-06-19 16:06 | CASEMGMT ---
HARLEEN LUCIANO Discharge Follow-Up Phone Call. Lacaraceli: 14 Strata: 4 Discharge Date: 06/18/19 Adm Dx: Acute Exac COPD Call to pt to inquire about how she has been doing since being discharged from the hospital. Pt states she is still having some difficulty breathing but states she feels like it is improving and that she is :just taking things slowly: Pt advised, if her symptoms worsen, to contact her PCP or to return to [facility] and she voices understanding. Noted on RN MUSTAPHA admission assessment that pt was interested in HHC. Discussed HHC with pt and she state she is [facility]. Pt states she does not feel like she needs/wants therapy or an aide, but is agreeable to retirement and states she needs a shower chair. Also discussed CCN with pt and she is also interested in CCN. Pt states she was able to warp picker the new prescriptions and denies having any questions about the medications. She states she has made an appt w/PCP, Dr Paulino, for . She denies having any further questions/concerns. HARLEEN LUCIANO thanked pt for choosing [facility]. Pt voices appreciation of call and assistance with follow-up care. After phone call completed, call placed to April @ [facility] and she states they have received a referral for [facility] and plan on seeing pt/start of care tomorrow 06/20. She was also made aware pt states she needs a shower chair. CCN referral also placed at this time. Call placed to [facility] and spoke with Gavin/referral made. Gavin was also made aware [facility] start of care to begin tomorrow 06/20/19. Sim STORY RN, CM
--- NOTE | 2019-06-29 09:53 | CASEMGMT ---
We received fax back from [facility] stating that they need a new order for the 4 liters home oxygen d/t 1st order not being fully complete. Order signed by Lev ASHBY and re-faxed to [facility] at this time. There was also a note regarding a shower chair/bench to be set up for pt thru [facility] and this RN CM placed call to Angélica at Dr. Paulino's office and she states she will f/u with pt regarding same at this time. Julio Cesar CANSECO CM
== END 2019-06-18 11:11 | disposition home or self-care (01) | DRG 190 ==
LOC: ED 19:35 → PCU 20:07
PROVIDERS: Nurse Practitioner Family; Student in an Organized Health Care Education/Training Program; Admitting Provider Hospitalist; Emergency Provider Emergency Medicine; Family Provider Family Medicine; PCP Family Medicine; Referring Provider Hospitalist; Visit Provider Internal Medicine
DX: J44.0 Chronic obstructive pulmonary disease with (acute) lower respiratory infection (principal); J96.21 Acute and chronic respiratory failure with hypoxia; J96.22 Acute and chronic respiratory failure with hypercapnia; E87.2 Acidosis; J44.1 Chronic obstructive pulmonary disease with (acute) exacerbation; B97.89 Other viral agents as the cause of diseases classified elsewhere; I25.10 Atherosclerotic heart disease of native coronary artery without angina pectoris; I10 Essential (primary) hypertension; F32.9 Major depressive disorder, single episode, unspecified; F41.9 Anxiety disorder, unspecified; K21.9 Gastro-esophageal reflux disease without esophagitis; E66.9 Obesity, unspecified; G71.00 Muscular dystrophy, unspecified; E11.65 Type 2 diabetes mellitus with hyperglycemia; F17.210 Nicotine dependence, cigarettes, uncomplicated; E03.9 Hypothyroidism, unspecified; Z99.81 Dependence on supplemental oxygen; Z95.5 Presence of coronary angioplasty implant and graft; Z79.51 Long term (current) use of inhaled steroids; Z79.899 Other long term (current) drug therapy; Z79.82 Long term (current) use of aspirin; Z79.02 Long term (current) use of antithrombotics/antiplatelets; Z68.34 Body mass index [BMI] 34.0-34.9, adult; Z79.4 Long term (current) use of insulin
CPT/HCPCS: 36415; 71045; 80048; 80053; 82803; 82962; 83036; 83605; 83880; 84484; 85025; 85610; 85730; 87633; 93005; 94002; 94640; 94667; 94668; 97802; 99251; 99285; 99406; A4216; G0463

== ENCOUNTER → 2019-09-20 | Outpatient (CLI) | payer MEDICARE, SELFPAY ==
[2018-12-29 10:40] VITALS: BMI 34.9
[2019-09-20 11:20] VITALS: BMI 34.7
--- NOTE | 2019-09-20 12:20 | RAD_ITS ---
STUDY: X-RAY CHEST REASON FOR EXAM: Female, 69 years old. SOB HX OF EMPHYSEMA PER PATIENT. TECHNIQUE: PA and lateral views of the chest. COMPARISON: 06/16/2019 FINDINGS: There is hyperinflation of the lungs consistent with chronic obstructive lung disease (COPD). There is no demonstrated pleural abnormality. Normal size heart. Normal mediastinum and wallace. Normal visualized pulmonary arteries. Normal visualized aortic arch and descending thoracic aorta. Normal visualized thoracic spine. Multiple healed right rib fractures. There is no demonstrated abnormality of the visualized soft tissue structures of the upper abdomen. RAD/Chest PA and Lateral IMPRESSION: Emphysema without pneumonia or atelectasis. Electronically Signed: Max Braxton MD at 13:18 EST Tel , Service support ,
== END | disposition home or self-care (01) ==
LOC: RAD 12:18
PROVIDERS: PCP Internal Medicine; Referring Provider Internal Medicine; Visit Provider Internal Medicine
DX: J44.9 Chronic obstructive pulmonary disease, unspecified (principal); R07.9 Chest pain, unspecified
CPT/HCPCS: 71046

== ENCOUNTER → 2019-10-16 | Outpatient (CLI) | payer MEDICARE, SELFPAY ==
[2018-12-29 10:40] VITALS: BMI 34.9
[2019-09-20 11:20] VITALS: BMI 34.7
--- NOTE | 2019-10-16 15:37 | RAD_ITS ---
STUDY: X-RAY CHEST REASON FOR EXAM: Female, 69 years old. COUGH, SHORTNESS OF BREATH, CHEST PAIN TECHNIQUE: PA and lateral views of the chest. COMPARISON: . FINDINGS: The lungs are normally expanded with bilateral lower lobe atelectasis, otherwise clear. There is no demonstrated pleural abnormality. There is mild cardiac enlargement. Normal mediastinum and wallace. Normal visualized pulmonary arteries. There is atherosclerotic calcification of the aortic arch with tortuosity. There is demineralization of the osseous structures. There is degenerative osteoarthritis of the bilateral shoulders. There is no demonstrated abnormality of the visualized soft tissue structures of the upper abdomen. RAD/Chest PA and Lateral IMPRESSION: Bilateral lower lobe atelectasis, otherwise no acute cardiopulmonary process. Electronically Signed: Lin Sandoval MD at 1:12 EDT , Service support ,
== END | disposition home or self-care (01) ==
LOC: RAD 15:37
PROVIDERS: PCP Internal Medicine; Referring Provider Internal Medicine; Visit Provider Internal Medicine
DX: J44.9 Chronic obstructive pulmonary disease, unspecified (principal); R06.02 Shortness of breath; R07.9 Chest pain, unspecified
CPT/HCPCS: 71046

== ENCOUNTER 2019-10-23 16:25 | Emergency (ER) | payer MEDICARE, SELFPAY ==
[2018-12-29 10:40] VITALS: BMI 34.9
[2019-10-16 16:53] VITALS: BMI 33.3
[2019-10-23] VITALS (10 sets, daily range): BP systolic 145–166; BP diastolic 64–91; PULSE 65–79; RESP 20–28; TEMP 36.6–37.2; O2SAT 98–100; BMI 35.6
--- NOTE | 2019-10-23 16:35 | EKG12_ITS ---
Test Reason : SOB Blood Pressure : / mmHG Vent. Rate : 065 BPM Atrial Rate : 065 BPM P-R Int : 156 ms QRS Dur : 086 ms QT Int : 444 ms P-R-T Axes : 040 014 031 degrees QTc Int : 461 ms Normal sinus rhythm Normal ECG Confirmed by RADHA MELVIN, ANABELLE ([id number]), commissioning editor RAMANDEEP HOLGUIN ([id number]) on 10/30/2019 11:10:30 AM Referred By: DANIELA Confirmed By:MARKUS GARCIA MD
--- NOTE | 2019-10-23 16:47 | ED.DCSUM_ITS ---
History of Present Illness Chief Complaint: Shortness of Breath Informant: Patient Onset: Days Context: Gradual Onset Timing: Continuous Current Severity: Moderate Maximum Severity: Moderate Narrative: The patient is a 69-year-old female presents to the emergency department with cough and shortness of breath. Patient has a history of COPD. She is on 4 L of oxygen at night. She states that she was recently diagnosed with a COPD exacerbation with bronchitis. She was on doxycycline and prednisone. She states she finished it, but she is still had persistent symptoms. She feels like she cannot catch her breath. She is had cough with scant sputum. She also admits to chills and sweats. She denies chest pain. She denies leg edema. She does continue to smoke. Prior similar symptoms: No Recent Illness/Hospitalization: No Past Medical History - Allergies and Home Meds Allergies/Adverse Reactions: Allergies amoxicillin [Amoxicillin] Allergy (Intermediate, Verified 10/23/19 16:27) Rash gabapentin [From Neurontin] Allergy (Verified 10/23/19 16:27) Shortness of breath levofloxacin [From Levaquin] Allergy (Verified 10/23/19 16:27) Roxy is allergic to the red dye in the pill form, states she is fine with the iv form. pseudoephedrine HCl [From Sudafed] Allergy (Verified 10/23/19 16:27) Shortness of breath red dye Allergy (Verified 10/23/19 16:27) Hives codeine Adverse Reaction (Verified 10/23/19 16:27) HEADACHE Primary Care Physician: Billy Madera MD [Primary Care Provider] - Prior records reviewed: Yes Past Medical History: - - COPD, hypertension Surgical History: angioplasty - With coronary stent x2, cholecystectomy Smoking Status: Current every day smoker - Family History Sibling Family History: Family History (Last Reviewed 09/20/19 @ 11:20 by Evie Yi) Brother Heart disease Mother Colon cancer Heart disease Family History: Reports: Heart Disease - Brother of massive IN at age 50 Paternal Family History: Family History (Last Reviewed 09/20/19 @ 11:20 by Evie Yi) Brother Heart disease Mother Colon cancer Heart disease Family History: Reports: Pulmonary Disease Maternal Family History: Family History (Last Reviewed 09/20/19 @ 11:20 by Evie Yi) Brother Heart disease Mother Colon cancer Heart disease Family History: Reports: Heart Disease Review of Systems General: Denies: Chills, Fever, Sweats Eyes: Denies: Visual changes - bilaterally, Diplopia ENT: Denies: Rhinorrhea, Sore throat Cardiovascular: Denies: Chest pain, Palpitations Respiratory: Reports: Dyspnea, Cough, Sputum, Dyspnea on exertion Gastrointestinal: Denies: Abdominal pain, Nausea, Vomiting, Diarrhea, Melena, Hematochezia Genitourinary: Denies: Dysuria, Hematuria, Frequency Musculoskeletal: Denies: Back pain, Extremity Pain Skin: Denies: Rash, Wounds Neurological: Denies: Headache, Weakness, Numbness Physical Exam Vital Signs/Narrative: Vital Signs Temp Pulse Resp BP Pulse Ox 10/23/19 16:27 99 F 79 20 H 166/91 H 99 Inital Vital Signs reviewed: Yes General: Well nourished, Well developed, No Acute Distress Head: Normocephalic, Atraumatic Eyes: Perrl, EOMI ENT: Moist mucous membranes, No rhinorrhea Neck: Supple, Nontender Cardiovascular: Regular rate, Regular rhythm, No murmurs Respiratory: No distress, Chest nontender, Wheezing, Decreased Air Movement Abdomen: Soft, Nontender, Nondistended, Normal bowel sounds Back: Nontender, Normal Inspection Extremities: Nontender, No edema Skin: Normal color, No rash Neurological: Alert, Oriented x3, Cranial nerves II-XII grossly intact, Normal Strength, Normal Sensation Psychological: Normal affect, Normal Mood Diagnostic/Tx/Re-eval Clinical Impression(s) from Imaging Studies Chest X-Ray 10/23/19 17:51 IMPRESSION: No acute cardiopulmonary disease or major interval change. Electronically Signed: Tanmay Johnson DO at 18:07 EDT Tel [phone], Service support , Abnormal Lab Results 10/23/19 10/23/19 10/23/19 16:55 16:55 16:55 WBC 10.7 RBC 4.37 Hgb 12.6 Hct 39.1 MCV 89.5 MCH 28.8 MCHC 32.2 RDW Std Deviation 39.1 RDW Coeff of Malcom 11.9 Plt Count 290 MPV 11.2 Immature Gran % (Auto) 0.500 Neut % (Auto) 73.8 H Lymph % (Auto) 16.9 L Beckham % (Auto) 6.3 Eos % (Auto) 1.8 Baso % (Auto) 0.7 Absolute Neuts (auto) 7.9 H Absolute Lymphs (auto) 1.81 Nucleated RBC % 0 Sodium 134 L Potassium 3.7 Chloride 99 Carbon Dioxide 29.0 Anion Gap 6 BUN 6 L Creatinine 0.83 Estim Creat Clear Calc 51.31 Est GFR (MDRD) Af Amer 87 Est GFR (MDRD) Non-Af 72 BUN/Creatinine Ratio 7.2 L Glucose 279 H Lactic Acid 2.3 H* Calcium 8.7 Troponin I < 0.015 B-Natriuretic Peptide 10/23/19 16:55 WBC RBC Hgb Hct MCV MCH MCHC RDW Std Deviation RDW Coeff of Malcom Plt Count MPV Immature Gran % (Auto) Neut % (Auto) Lymph % (Auto) Beckham % (Auto) Eos % (Auto) Baso % (Auto) Absolute Neuts (auto) Absolute Lymphs (auto) Nucleated RBC % Sodium Potassium Chloride Carbon Dioxide Anion Gap BUN Creatinine Estim Creat Clear Calc Est GFR (MDRD) Af Amer Est GFR (MDRD) Non-Af BUN/Creatinine Ratio Glucose Lactic Acid Calcium Troponin I B-Natriuretic Peptide 124.3 H - Medical Decision Making The patient presents with cough. She did just finish outpatient therapy for COPD exacerbation. She is not hypoxic, but did have tachypnea and diminished lung sounds. She was given nebulized breathing treatments and Solu-Medrol. Screening labs were obtained. Labs are relatively unremarkable except for mildly elevated lactic of 2.3. The patient has not had a fever. Her chest x- ray shows no focal infiltrative process. Influenza was negative. The patient was ambulated on room air. She maintained saturations of 99%. The patient wants to be discharged. I do have some concern given her significant history of lung disease, but at this point, especially in light of significant viral illness in the community, I do feel that this is reasonable. I am going to broaden her antibiotics and continue her on steroids. She was counseled on concerning symptoms and reasons to return. She will be discharged home. Impression 1. COPD exacerbation ED Disposition - Plan for ED Patient: Instructions: BRONCHITIS, Antiobiotic Treatment (Adult), Copd Flare Prescriptions: Prednisone [Deltasone] 40 mg PO DAILY #10 tab Prescription Printed Azithromycin [Zithromax Z-Arslan] 250 mg PO UD #1 box Prescription Printed Referrals: Billy Madera MD [Primary Care Provider] -
[2019-10-23] MEDS: Ipratropium/Albuterol Sulfate 3 ML AMPUL.NEB INHALATION ×2 (16:50→18:50)
[2019-10-23] MEDS: Albuterol 2.5 MG/3 ML VIAL.NEB. INHALATION ×3 (17:00→18:15)
[2019-10-23 17:11] LABS: Absolute Lymphocyte Count 1.81 X10^3/uL (0.83-4.51); Absolute Neutrophil Count 7.9 X10^3/uL (2.0-7.7); Basophil# 0.08 X10^3/uL; Basophil% 0.7 % (0-1); Eosinophil# 0.19 X10^3/uL; Eosinophils% 1.8 % (0-5); Hematocrit 39.1 % (37-47); Hemoglobin 12.6 g/dL (12.0-15.0); Lymphocyte # 1.81 X10^3/ul (4.0); Lymphocyte % 16.9 % (19-41); Mean Corp Hgb Conc 32.2 g/dL (32-36); Mean Corpuscular Hgb 28.8 pg (27.0-32.0); Mean Corpuscular Volume 89.5 fL (81-99); Mean Platelet Vol. 11.2 fl (6.2-12.0); Monocyte# 0.68 X10^3/uL; Monocyte% 6.3 % (0-10); NRBC Flagged by Analyzer 0 % (0-5); Neutrophil % 73.8 % (47-70); Platelet Count 290 K/mm3 (150-450); RBC Distribution Width CV 11.9 % (11.6-14.6); RBC Distribution Width SD 39.1 fl (35.1-43.9); Red Blood Count 4.37 M/mm3 (4.2-5.4); White Blood Count 10.7 K/mm3 (4.4-11.0)
[2019-10-23 17:28] LABS: Anion Gap 6 (5-15); BUN 6 mg/dL (7-18); BUN/Creat Ratio 7.2 RATIO (10-20); Calcium,Total 8.7 mg/dL (8.5-10.1); Chloride 99 mmol/L (98-107); Creatinine, Serum 0.83 mg/dL (0.55-1.02); EST Glomerular Filtration Rate 72 mL/min (>60); Est Glom Filt Rate - Afr Amer 87 mL/min (>60); Estimated Creatinine Clearance 51.31 ml/min; Glucose 279 mg/dL (74-106); Potassium 3.7 mmol/L (3.5-5.1); Sodium Level 134 mmol/L (136-145)
[2019-10-23] MEDS: MethylPREDNISolone 125 MG/2 ML Vial IV (17:28)
[2019-10-23] MEDS: 0.9% Normal Saline 1,000 ML 150 ML IV (17:28)
[2019-10-23 17:39] LABS: BNP,B-Type NATRIURETIC PEPTIDE 124.3 pg/mL (0-100)
--- NOTE | 2019-10-23 17:51 | RAD_ITS ---
STUDY: X-RAY CHEST REASON FOR EXAM: Female, 69 years old. Shortness of breath with cough. Bronchitis. TECHNIQUE: PA and lateral views of the chest. COMPARISON: October 16, 2019. FINDINGS: The lungs are clear and expanded. There is no demonstrated pleural abnormality. Normal size heart. Normal mediastinum and wallace. Normal visualized pulmonary arteries. Normal visualized aortic arch and descending thoracic aorta. There is a mild levoscoliosis of the thoracic spine. Normal visualized ribs, clavicles, and shoulders. There is no demonstrated abnormality of the visualized soft tissue structures of the upper abdomen. RAD/Chest PA and Lateral IMPRESSION: No acute cardiopulmonary disease or major interval change. Electronically Signed: Tanmay Johnson DO at 18:07 EDT Tel [phone], Service support ,
[2019-10-23 17:53] LABS: Lactic Acid 2.3 mmol/L (0.4-1.9)
[2019-10-23 21:04] LABS: Reflex Lactate? Y
== END 2019-10-23 19:20 | disposition home or self-care (01) ==
LOC: ED 17:16
PROVIDERS: Emergency Provider Emergency Medicine; PCP Internal Medicine
DX: J44.1 Chronic obstructive pulmonary disease with (acute) exacerbation (principal); I10 Essential (primary) hypertension; F17.200 Nicotine dependence, unspecified, uncomplicated
CPT/HCPCS: 71046; 80048; 83605; 83880; 84484; 85025; 87040; 87804; 93005; 94640; 96361; 96374; 99251; 99284; J7030; A4216; G0463

== ENCOUNTER → 2019-11-08 | Outpatient (CLI) | payer MEDICARE, SELFPAY ==
[2018-12-29 10:40] VITALS: BMI 34.9
[2019-10-23 16:27] VITALS: BMI 35.6
--- NOTE | 2019-11-08 12:09 | RAD_ITS ---
STUDY: X-RAY CHEST REASON FOR EXAM: Female, 69 years old. COUGH X 3 WEEKS TECHNIQUE: PA and lateral views of the chest. COMPARISON: Comparison is made with prior study of October 23, 2019. FINDINGS: Hyperinflation. Increased markings in the lingular segment of the left upper lobe suggestive of scarring. No acute infiltration is seen. There is moderate cardiac enlargement. Normal mediastinum and wallace. Normal visualized pulmonary arteries. There is atherosclerotic calcification of the aortic arch with tortuosity. There are degenerative changes of the visualized thoracic spine. Healed right sided rib fractures. There is no demonstrated abnormality of the visualized soft tissue structures of the upper abdomen. RAD/Chest PA and Lateral IMPRESSION: Scarring in the lingular segment of the left upper lobe. No acute infiltrate is seen. Electronically Signed: Bruce Lubin, at 12:37 EDT , Service support ,
== END | disposition home or self-care (01) ==
PROVIDERS: PCP Internal Medicine; Referring Provider Physician Assistant; Visit Provider Physician Assistant
DX: R05 Cough (principal)
CPT/HCPCS: 71046

== ENCOUNTER → 2019-12-01 | Outpatient (CLI) | payer MEDICARE, SELFPAY ==
[2018-12-29 10:40] VITALS: BMI 34.9
[2019-12-01 12:00] VITALS: BMI 33.8
[2019-12-01 13:07] LABS: Absolute Lymphocyte Count 1.53 X10^3/uL (0.83-4.51); Absolute Neutrophil Count 7.1 X10^3/uL (2.0-7.7); Basophil# 0.09 X10^3/uL; Eosinophil# 0.16 X10^3/uL; Eosinophils% 1.7 % (0-5); Hematocrit 40.8 % (37-47); Lymphocyte # 1.53 X10^3/ul (4.0); Lymphocyte % 16.2 % (19-41); Mean Corp Hgb Conc 31.9 g/dL (32-36); Mean Corpuscular Volume 87.9 fL (81-99); Mean Platelet Vol. 11.8 fl (6.2-12.0); Monocyte# 0.53 X10^3/uL; Monocyte% 5.6 % (0-10); NRBC Flagged by Analyzer 0 % (0-5); Neutrophil # 7.09 X10^3/uL (2.7-7.7); Neutrophil % 75.2 % (47-70); Platelet Count 292 K/mm3 (150-450); RBC Distribution Width CV 12.3 % (11.6-14.6); RBC Distribution Width SD 39.2 fl (35.1-43.9); Red Blood Count 4.64 M/mm3 (4.2-5.4); White Blood Count 9.4 K/mm3 (4.4-11.0)
[2019-12-01 13:28] LABS: Anion Gap 5 (5-15); BNP,B-Type NATRIURETIC PEPTIDE 66.3 pg/mL (0-100); BUN 9 mg/dL (7-18); BUN/Creat Ratio 10.4 RATIO (10-20); Calcium,Total 9.6 mg/dL (8.5-10.1); Chloride 101 mmol/L (98-107); Creatinine, Serum 0.86 mg/dL (0.55-1.02); EST Glomerular Filtration Rate 69 mL/min (>60); Est Glom Filt Rate - Afr Amer 84 mL/min (>60); Glucose 293 mg/dL (74-106); Potassium 4.2 mmol/L (3.5-5.1); Sodium Level 137 mmol/L (136-145)
== END | disposition home or self-care (01) ==
PROVIDERS: PCP Internal Medicine; Referring Provider Physician Assistant Medical; Visit Provider Physician Assistant Medical
DX: I25.110 Atherosclerotic heart disease of native coronary artery with unstable angina pectoris (principal); I25.119 Atherosclerotic heart disease of native coronary artery with unspecified angina pectoris; R06.00 Dyspnea, unspecified; I10 Essential (primary) hypertension
CPT/HCPCS: 36415; 80048; 83880; 85025

== ENCOUNTER 2020-01-08 16:33 | Emergency (ER) | payer MEDICARE, SELFPAY ==
[2019-12-21 09:57] VITALS: BMI 33.8; BMI 34.9
[2020-01-08 16:34] VITALS: BP 159/101; PULSE 85; RESP 50; TEMP 36.6; O2SAT 94; BMI 36.1
--- NOTE | 2020-01-08 17:17 | ED.VISSUMM ---
- ER Visit Summary Date of Service: 01/08/20 Chief Complaint: Constipation History of Present Illness: The patient is a 69 F who presents with constipation. Patient states her last bowel movement was yesterday. Patient states she has some pressure to defecate today. Patient states nothing makes it better or worse. Patient states she took an Ativan as well as laxatives with no improvement. Patient denies any abdominal pain. Patient does admit to some urinary urgency but denies any dysuria or hematuria. Patient denies any fevers or chills. Patient denies any nausea or vomiting. Physical Examination: Vital signs are stable. Patient is afebrile. Patient is in no acute distress. Oral mucosa is pink and moist. Neck is supple. Trachea is midline. There is no JVD. Heart was regular rate and rhythm. Lungs are clear and equal bilaterally. Abdomen is soft. Bowel sounds are normal. There is mild diffuse tenderness. There is no rebound or guarding noted. Cranial nerves II through XII are intact. There are no focal motor or sensory deficits noted. Extremities are intact. There is no calf tenderness or edema. Test Results: CBC shows a mild leukocytosis of 15.7. Comprehensive metabolic profile was essentially within normal limits with the exception of an elevated glucose of 419. Urinalysis does not show any evidence of urinary tract infection. Emergency Department Course and Treatment: Patient was given a soapsuds enema here. Patient had large bowel movement after this. Patient felt better on reevaluation. Patient was instructed to continue her laxatives as prescribed. Patient was instructed to follow-up with her primary care physician in 5 to 7 days. Patient understood and was agreeable with the plan. All questions were answered. Disposition: Discharge home Impression: Constipation This note was generated with The Editorialistation software. It may contain incorrect words, spelling, and punctuation that were not noted in review of the chart prior to signing ED Disposition - Plan for ED Patient: Disposition: Home or Assisted Living Diagnosis: Constipation Instructions: ED Constipation Referrals: Billy Madera MD [Primary Care Provider] - 5-7 Days
[2020-01-08 17:58] LABS: Bacteria 0 SEEN /hpf (None Seen); Mucous, Urine 0 SEEN /hpf (<or=2+); Red Blood Cells-Urine 0 SEEN /hpf (0-5); White Blood Cells 0 SEEN /hpf (0-5)
[2020-01-08 18:09] LABS: Absolute Lymphocyte Count 1.11 X10^3/uL (0.83-4.51); Absolute Neutrophil Count 13.8 X10^3/uL (2.0-7.7); Basophil# 0.11 X10^3/uL; Basophil% 0.7 % (0-1); Eosinophil# 0.06 X10^3/uL; Eosinophils% 0.4 % (0-5); Hematocrit 38.9 % (37-47); Hemoglobin 12.6 g/dL (12.0-15.0); Lymphocyte # 1.11 X10^3/ul (4.0); Lymphocyte % 7.1 % (19-41); Mean Corp Hgb Conc 32.4 g/dL (32-36); Mean Corpuscular Hgb 28.6 pg (27.0-32.0); Mean Corpuscular Volume 88.4 fL (81-99); Mean Platelet Vol. 11.5 fl (6.2-12.0); Monocyte# 0.57 X10^3/uL; Monocyte% 3.6 % (0-10); NRBC Flagged by Analyzer 0 % (0-5); Neutrophil # 13.79 X10^3/uL (2.7-7.7); Neutrophil % 87.7 % (47-70); Platelet Count 291 K/mm3 (150-450); RBC Distribution Width CV 12.1 % (11.6-14.6); RBC Distribution Width SD 39.2 fl (35.1-43.9); White Blood Count 15.7 K/mm3 (4.4-11.0)
[2020-01-08 18:15] LABS: Color, Urine Straw (Yellow); Glucose, Dipstick 1000 mg/dl (Normal); Ketone-Dipstick Negative (Negative); Leukocyte Esterase-Dipstick Negative /ul (Negative); Nitrite-Dipstick Negative (Negative); Occult Blood-Urine Negative /ul (Negative); Protein-Dipstick Negative (Negative); Urine Bilirubin Dipstick Negative (Negative); Urine Clarity Clear (Clear); Urine Urobilinogen Normal (Normal)
[2020-01-08 18:19] LABS: AST(SGOT) 14 U/L (15-37); Alanine Aminotransfer ALT/SGPT 26 U/L (13-56); Albumin, Serum 3.6 g/dL (3.2-5.0); Alkaline Phosphatase 144 U/L (45-117); Anion Gap 10 (5-15); BUN 10 mg/dL (7-18); BUN/Creat Ratio 9.3 RATIO (10-20); Chloride 96 mmol/L (98-107); Creatinine, Serum 1.08 mg/dL (0.55-1.02); EST Glomerular Filtration Rate 54 mL/min (>60); Est Glom Filt Rate - Afr Amer 65 mL/min (>60); Estimated Creatinine Clearance 39.43 ml/min; Globulin 3.5 g/dL (2.2-4.2); Glucose 419 mg/dL (74-106); Potassium 4.2 mmol/L (3.5-5.1); Protein, Total 7.1 g/dL (6.4-8.2); Sodium Level 133 mmol/L (136-145)
[2020-01-08 18:21] LABS: Squamous Epithelial Cells - UA 0-5 SEEN /hpf (5-10)
[2020-01-08 19:40] VITALS: BP 146/64; PULSE 80; RESP 22; O2SAT 99
== END 2020-01-08 19:41 | disposition home or self-care (01) ==
PROVIDERS: Emergency Provider Emergency Medicine; PCP Internal Medicine
DX: K59.00 Constipation, unspecified (principal); J44.9 Chronic obstructive pulmonary disease, unspecified; K21.9 Gastro-esophageal reflux disease without esophagitis; E78.00 Pure hypercholesterolemia, unspecified; F41.9 Anxiety disorder, unspecified; Z87.891 Personal history of nicotine dependence; Z79.82 Long term (current) use of aspirin; Z79.899 Other long term (current) drug therapy
CPT/HCPCS: 80053; 81001; 85025; 99285; P9612; A4216

== ENCOUNTER 2020-01-25 16:34 | Emergency (ER) | payer MEDICARE, SELFPAY ==
[2019-12-21 09:57] VITALS: BMI 34.9
[2020-01-17 14:39] VITALS: BMI 36.1
[2020-01-25 16:35] VITALS: BP 157/111; PULSE 94; RESP 17; TEMP 36.6; O2SAT 96; BMI 36.2
--- NOTE | 2020-01-25 16:44 | ED.VIS.GEN ---
History of Present Illness Chief Complaint: Lower Extremity Injury Informant: Patient Onset: Days Context: Gradual Onset Timing: Continuous Current Severity: Moderate Maximum Severity: Moderate Narrative: The patient is a 69-year-old female with history of lung disease, chronic dermatomyositis, and coronary vascular disease a presents to the emergency department with left knee injury. Patient states about a week ago, she was walking up her stairs outdoors. She tripped and fell. She struck the outside of her left knee against the concrete. She did not hit her head or lose consciousness. She states today, she was ambulating and her knee felt loose. She felt like it was going to give out. She does not feel unsteady on her feet. She is had no dizziness or lightheadedness. Prior similar symptoms: No Recent Illness/Hospitalization: No Past Medical History - Allergies and Home Meds Allergies/Adverse Reactions: Allergies amoxicillin [Amoxicillin] Allergy (Intermediate, Verified 01/25/20 16:35) Rash gabapentin [From Neurontin] Allergy (Verified 01/25/20 16:35) Shortness of breath levofloxacin [From Levaquin] Allergy (Verified 01/25/20 16:35) Hives is allergic to the red dye in the pill form, states she is fine with the iv form. pseudoephedrine HCl [From Sudafed] Allergy (Verified 01/25/20 16:35) Shortness of breath red dye Allergy (Verified 01/25/20 16:35) Hives codeine Adverse Reaction (Verified 01/25/20 16:35) HEADACHE Primary Care Physician: Billy Madera MD [Primary Care Provider] - Prior records reviewed: Yes Past Medical History: - - COPD, dermatomyositis, coronary vascular disease Surgical History: angioplasty - With coronary stent x2, cholecystectomy Smoking Status: Current every day smoker - Family History Sibling Family History: Family History (Last Reviewed 12/01/19 @ 11:44 by LOUISE Nagy) Brother Heart disease Mother Colon cancer Heart disease Family History: Reports: Heart Disease - Brother of massive ID at age 50 Maternal Family History: Family History (Last Reviewed 12/01/19 @ 11:44 by LOUISE Nagy) Brother Heart disease Mother Colon cancer Heart disease Family History: Reports: Heart Disease Paternal Family History: Family History (Last Reviewed 12/01/19 @ 11:44 by LOUISE Nagy) Brother Heart disease Mother Colon cancer Heart disease Family History: Reports: Pulmonary Disease Review of Systems General: Denies: Chills, Fever, Sweats Eyes: Denies: Visual changes - bilaterally, Diplopia ENT: Denies: Rhinorrhea, Sore throat Cardiovascular: Denies: Chest pain, Palpitations Respiratory: Denies: Dyspnea, Cough, Dyspnea on exertion Gastrointestinal: Denies: Abdominal pain, Nausea, Vomiting, Diarrhea, Melena, Hematochezia Genitourinary: Denies: Dysuria, Hematuria, Frequency Musculoskeletal: Denies: Back pain, Extremity Pain Skin: Denies: Rash, Wounds Neurological: Denies: Headache, Weakness, Numbness Physical Exam Vital Signs/Narrative: Vital Signs Temp Pulse Resp BP Pulse Ox 01/25/20 16:35 97.8 F 94 17 157/111 H 96 Inital Vital Signs reviewed: Yes General: Well nourished, Well developed, No Acute Distress Head: Normocephalic, Atraumatic Eyes: Perrl, EOMI ENT: Moist mucous membranes, No rhinorrhea Neck: Supple, Nontender Cardiovascular: Regular rate, Regular rhythm, No murmurs Respiratory: No distress, CTA bilaterally, Chest nontender Abdomen: Soft, Nontender, Nondistended, Normal bowel sounds Back: Nontender, Normal Inspection Extremities: No edema, Tenderness - Ecchymosis over the left lateral knee. Extension preserved. No gross laxity. Normal pulses. No palpable cords. Skin: Normal color, No rash Neurological: Alert, Oriented x3, Cranial nerves II-XII grossly intact, Normal Strength, Normal Sensation Psychological: Normal affect, Normal Mood Diagnostic/Tx/Re-eval Clinical Impression(s) from Imaging Studies Knee X-Ray 01/25/20 16:50 IMPRESSION: Stable mild patellofemoral osteoarthritis. No acute osseous abnormality is evident. Electronically Signed: Dago Goodman MD at 17:08 EDT Tel , Service support , - Medical Decision Making The patient has no gross laxity or instability of the knee. Her extension is preserved. Plain films were obtained which showed mild osteoarthritis without fracture or effusion. The patient placed in an Andrea wrap for comfort. She will be given outpatient orthopedic follow-up as needed. She will be discharged home. Impression 1. Left knee contusion ED Disposition - Plan for ED Patient: Instructions: ED Sprain Knee Referrals: Billy Madera MD [Primary Care Provider] -
--- NOTE | 2020-01-25 16:50 | RAD_ITS ---
STUDY: X-RAY - LEFT KNEE REASON FOR EXAM: Female, 69 years old. left knee pain, no injury TECHNIQUE: 4 view(s) of the knee. COMPARISON: September 17, 2018 FINDINGS: Normal visualized distal femur. Normal visualized proximal tibia and fibula. Normal proximal tibiofibular articulation. Normal medial femorotibial compartment. Normal lateral femorotibial compartment. There is mild degenerative arthrosis of the patellofemoral articulation. The soft tissue structures are unremarkable. RAD/Knee 4 or More Views IMPRESSION: Stable mild patellofemoral osteoarthritis. No acute osseous abnormality is evident. Electronically Signed: Dago Goodman MD at 17:08 EDT Tel , Service support ,
== END 2020-01-25 17:21 | disposition home or self-care (01) ==
LOC: ED 17:10
PROVIDERS: Emergency Provider Emergency Medicine; PCP Internal Medicine
DX: S80.02XA Contusion of left knee, initial encounter (principal); F17.200 Nicotine dependence, unspecified, uncomplicated; J44.9 Chronic obstructive pulmonary disease, unspecified; W10.9XXA Fall (on) (from) unspecified stairs and steps, initial encounter; Y93.01 Activity, walking, marching and hiking; Y92.008 Other place in unspecified non-institutional (private) residence as the place of occurrence of the external cause; Y99.8 Other external cause status
CPT/HCPCS: 73564; 99282

== ENCOUNTER → 2020-01-31 | Outpatient (CLI) | payer MEDICARE, SELFPAY ==
[2018-12-29 10:40] VITALS: BMI 34.9
[2019-07-14 06:26] VITALS: BMI 33.3
[2019-12-21 09:57] VITALS: BMI 34.9
[2020-01-25 16:35] VITALS: BMI 36.2
--- NOTE | 2020-01-31 13:13 | CT_ITS ---
STUDY: CT CHEST WITHOUT CONTRAST REASON FOR EXAM: Female, 69 years old. SOB/COPD. HISTORY OF DERMATOMYOCYTIS RADIATION DOSAGE (If Supplied By Facility): CTDIvol = ( 17.12 ) mGy, DLP = ( 628.81 ) mGycm TECHNIQUE: Transaxial imaging was performed without the administration of intravenous contrast material. Individualized dose optimization techniques were used for this CT. COMPARISON: CTA of the chest dated October 11, 2017. Chest x-ray dated November 08, 2019 FINDINGS: 1. There is hyperinflation of the lungs consistent with chronic obstructive lung disease (COPD). Reidentification of small calcified granuloma in the medial apex of the right upper lobe. A second small calcified granuloma is present in the inferior medial aspect of the right upper lobe. Volume loss of the left lower lobe and mild chronic bibasilar atelectasis reidentified. There is chronic parenchymal scarring in the lingula of the left upper lobe. No soft tissue nodules are seen. No active pulmonary edema or pleural effusion. Mild cystic emphysematous changes are present bilaterally. Left basilar interstitial scarring unchanged from the prior study. 2. There is no demonstrated pleural abnormality. 3. Normal heart size and pericardium. There are calcifications of the coronary arteries. 4. Calcified hilar lymph nodes reidentified. Leftward mediastinal rotation due to left lung volume unchanged from the prior study. Normal unenhanced pulmonary arteries. There is atherosclerotic calcification of the aortic arch with tortuosity and elongation of the aortic arch and descending thoracic aorta. 5. There are multi-level degenerative changes of the thoracic spine. 6. There is no demonstrated acute or significant abnormality of the visualized upper abdomen. Numerous chronic abnormalities including moderate hepatomegaly with multiple calcifications and a small cyst in the posterior aspect of the right lobe reidentified. Multiple splenic granulomata reidentified. CT/Chest without Contrast IMPRESSION: * COPD, chronic left lung volume loss and interstitial scarring * No suspicious nodules or masses. Electronically Signed: Jasen Brady MD at 23:08 EDT , Service support ,
[2020-01-31 13:30] VITALS: PULSE 72; PULSE 86; PULSE 87; PULSE 90; PULSE 91; PULSE 93; PULSE 98; O2SAT 93; O2SAT 94; O2SAT 95; O2SAT 97; O2SAT 99
--- NOTE | 2020-01-31 15:28 | PCM.PSN.6M ---
PSN 6 Minute Walk Test - 6 Minute Walk Test 6 Minute Walk Test: 6 Minute Walk Test PSN:6-Minute Walk Test Start: 01/31/20 13:43 Freq: Status: Active Protocol: [id number].6MINW Document 01/31/20 13:30 AD (Rec: 01/31/20 13:47 [id number]) 6 Minute Walk Test Date Performed 01/31/20 Time Performed 13:30 Height 5 ft 2 in Weight: 86.183 kg Weight in Pounds 190.[address]: Haroon Nuno Assistive device used: None Pre-test Oxygen Delivery Method Room Air Pulse Ox (%) 99 Pulse Rate (60-100 beats/min) 72 1st minute Oxygen Delivery Method Room Air Pulse Ox (%) 95 Pulse Rate (60-100 beats/min) 91 2nd minute Oxygen Delivery Method Room Air Pulse Ox (%) 97 Pulse Rate (60-100 beats/min) 87 3rd minute Oxygen Delivery Method Room Air Pulse Ox (%) 94 Pulse Rate (60-100 beats/min) 93 Number of Rests Taken 1 Reported Symptoms Dizziness 4th minute Oxygen Delivery Method Room Air Pulse Ox (%) 97 Pulse Rate (60-100 beats/min) 90 Number of Rests Taken 1 5th minute Oxygen Delivery Method Room Air Pulse Ox (%) 93 Pulse Rate (60-100 beats/min) 91 6th minute Oxygen Delivery Method Room Air Pulse Ox (%) 97 Pulse Rate (60-100 beats/min) 98 Post-test Oxygen Delivery Method Room Air Pulse Ox (%) 99 Pulse Rate (60-100 beats/min) 86 Dyspnea Luke Scale (0-10) 2 Exertion Luke Scale (6-20) 8 Full Laps Walked 13 Partial Lap, Number of Tiles Walked 0 Total Distance Walked (ft) 767 - Interpretation Interpretation: The patient was able to ambulate 767 feet over the course of 6 minutes on room air with no assistive devices and 3 breaks. The patient did experience significant desaturation from a baseline of 99% to as low as 93%. No significant tachycardia was noted. These findings are consistent with a respiratory limitation exercise tolerance. - Recommendations Recommendations: No supplemental oxygen is indicated at this time, but patient will need to be followed closely given level of desaturation.
== END | disposition home or self-care (01) ==
PROVIDERS: Family Provider Family Medicine; PCP Internal Medicine; Referring Provider Internal Medicine Critical Care Medicine; Visit Provider Internal Medicine Critical Care Medicine
DX: M33.91 Dermatopolymyositis, unspecified with respiratory involvement (principal); J96.10 Chronic respiratory failure, unspecified whether with hypoxia or hypercapnia
CPT/HCPCS: 71250; 94618

== ENCOUNTER 2020-03-16 06:00 | Observation (INO) | payer MEDICARE, SELFPAY ==
[2019-12-21 09:57] VITALS: BMI 34.9
[2020-02-01 14:19] VITALS: BMI 36.2
[2020-03-16] VITALS (14 sets, daily range): BP systolic 127–167; BP diastolic 48–63; PULSE 70–91; RESP 18–28; TEMP 36.6–36.9; O2SAT 93–100; BMI 37.0; BMI 37.3
--- NOTE | 2020-03-16 06:13 | EKG12_ITS ---
Test Reason : CP Blood Pressure : / mmHG Vent. Rate : 076 BPM Atrial Rate : 076 BPM P-R Int : 148 ms QRS Dur : 084 ms QT Int : 412 ms P-R-T Axes : 046 009 021 degrees QTc Int : 463 ms Normal sinus rhythm Nonspecific T wave abnormality Abnormal ECG Confirmed by RAMIREZ MELVIN, ARPITA ([id number]), newspaper copy editor JAVIER COLBY ([id number]) on 03/18/2020 8:57:21 AM Referred By: MELBA Confirmed By:ARPITA GUZMÁN MD
--- NOTE | 2020-03-16 06:13 | ED.VIS.GEN ---
History of Present Illness Chief Complaint: Chest Pain Informant: Patient Narrative: Stated approximately 20 minutes ago she awoke from sleep with substernal chest pain. It radiated to left shoulder and a little bit into her back. She describes a tightness. Also radiates into her neck. She has 2 cardiac stents from her cath 6 months ago. She did not have an CT per patient. This was done after a failed outpatient stress test per patient patient has severe end-stage COPD and wears 4 L of oxygen at night. She stated that is at baseline. She did try breathing treatment as well as [place] and pantoprazole with no relief of her symptoms therefore she came in. She denies any new cough. She denies any ankle swelling. She is supposed to take aspirin but normally does not. She has a Plavix regimen that she takes daily. Current severity is mild. - Past Medical History (1) Acute bronchitis, unspecified Status: Acute (2) Acute respiratory failure with hypoxia and hypercapnia Status: Acute (3) COPD exacerbation Status: Acute (4) Hyperglycemia Status: Acute (5) Anxiety Status: Chronic (6) Atherosclerotic heart disease of [place] coronary artery without angina pectoris Status: Chronic Comment: Double vessel CAD of the LAD and DIAG#2 Successful PTCA/RACHEL ostial DIAG with a 2.25 x 12 Promus Synergy stent; Successful PTCA/RCAHEL mid LAD with a 2.5 x 20 Promus Synergy. Per ANGELO @ [facility] 12/08/2018 (7) [place] esophagus Status: Chronic (8) COPD (chronic obstructive pulmonary disease) Status: Chronic (9) COPD with exacerbation Status: Chronic (10) Chronic respiratory failure Status: Chronic Comment: On home oxygen (11) Depression Status: Chronic (12) Dermatomyositis Status: Chronic (13) Diabetes Status: Chronic (14) GERD (gastroesophageal reflux disease) Status: Chronic (15) Generalized anxiety disorder Status: Chronic (16) Hypertension Status: Chronic (17) Hyponatremia Status: Chronic (18) Hypothyroidism Status: Chronic (19) Muscular dystrophy Status: Chronic (20) Postprandial bloating Status: Chronic (21) Smoking Status: Chronic (22) Type 2 diabetes mellitus Status: Chronic (23) Chest pain Status: Inactive (24) Unstable angina pectoris due to coronary arteriosclerosis Status: Inactive Past Medical History - Allergies and Home Meds Allergies/Adverse Reactions: Allergies amoxicillin [Amoxicillin] Allergy (Intermediate, Verified 03/16/20 06:06) Rash gabapentin [From Neurontin] Allergy (Verified 03/16/20 06:06) Shortness of breath levofloxacin [From Levaquin] Allergy (Verified 03/16/20 06:06) Hives is allergic to the red dye in the pill form, states she is fine with the iv form. pseudoephedrine HCl [From Sudafed] Allergy (Verified 03/16/20 06:06) Shortness of breath red dye Allergy (Verified 03/16/20 06:06) Hives codeine Adverse Reaction (Verified 03/16/20 06:06) HEADACHE Primary Care Physician: Billy Madera MD [Primary Care Provider] - Prior records reviewed: Yes Past Medical History: - - See problem list Surgical History: angioplasty - With coronary stent x2, cholecystectomy Smoking Status: Former smoker Alcohol: None Drugs: None - Family History Sibling Family History: Family History (Last Reviewed 02/01/20 @ 14:18 by Les Jacobsen) Brother Heart disease Mother Colon cancer Heart disease Family History: Reports: Heart Disease - Brother of massive CT at age 50 Maternal Family History: Family History (Last Reviewed 02/01/20 @ 14:18 by Les Jacobsen) Brother Heart disease Mother Colon cancer Heart disease Family History: Reports: Heart Disease Paternal Family History: Family History (Last Reviewed 02/01/20 @ 14:18 by Les Jacobsen) Brother Heart disease Mother Colon cancer Heart disease Family History: Reports: Pulmonary Disease Review of Systems General: Denies: Chills, Fever, Sweats Eyes: Denies: Visual changes - bilaterally, Diplopia ENT: Denies: Rhinorrhea, Sore throat Cardiovascular: Reports: Chest pain. Denies: Palpitations Respiratory: Denies: Dyspnea, Cough, Dyspnea on exertion Gastrointestinal: Denies: Abdominal pain, Nausea, Vomiting, Diarrhea, Melena, Hematochezia Genitourinary: Denies: Dysuria, Hematuria, Frequency Musculoskeletal: Denies: Back pain, Extremity Pain Skin: Denies: Rash, Wounds Neurological: Denies: Headache, Weakness, Numbness Physical Exam Vital Signs/Narrative: Vital Signs Temp Pulse Resp BP Pulse Ox 03/16/20 06:02 98.1 F 79 28 H 167/63 H 95 General: Well nourished, Well developed, No Acute Distress Head: Normocephalic, Atraumatic Eyes: Perrl, EOMI ENT: Moist mucous membranes, No rhinorrhea Neck: Supple, Nontender Cardiovascular: Regular rate, Regular rhythm, No murmurs Respiratory: No distress, CTA bilaterally, Chest nontender Abdomen: Soft, Nontender, Nondistended, Normal bowel sounds Back: Nontender, Normal Inspection Extremities: Nontender, No edema Skin: Normal color, No rash Neurological: Alert, Oriented x3, Cranial nerves II-XII grossly intact, Normal Strength, Normal Sensation Psychological: Normal affect, Normal Mood Diagnostic/Tx/Re-eval - Medical Decision Making EKG obtained shows sinus rhythm at a rate of 76. Nonspecific T wave abnormality with biphasic T waves V2 and T wave flattening V5. No STEMI. Lab work and chest x-ray obtained. Patient given sublingual nitroglycerin and oral aspirin. Reevaluation she is pain-free resting comfortably. Chest x-ray shows chronic COPD changes without acute infiltrates. Troponin is negative however this was a 30-minute level. She does have hyperglycemia greater than 350. The patient stated she chronically runs this high however. Discussed with the hospitalist. I do feel that she would benefit from admission. She has not had a recent stress test. Her heart cath with 2 stents was greater than a year ago. Patient and hospitalist are in agreement ED Disposition - Plan for ED Patient: Disposition: Acute Care Hospital [facility] Diagnosis: Chest pain, Diabetes mellitus with hyperglycemia
[2020-03-16 06:20] LABS: Absolute Lymphocyte Count 1.46 X10^3/uL (0.83-4.51); Absolute Neutrophil Count 9.4 X10^3/uL (2.0-7.7); Basophil% 0.8 % (0-1); Eosinophil# 0.26 X10^3/uL; Eosinophils% 2.2 % (0-5); Hemoglobin 12.2 g/dL (12.0-15.0); Lymphocyte # 1.46 X10^3/ul (4.0); Lymphocyte % 12.2 % (19-41); Mean Corp Hgb Conc 32.1 g/dL (32-36); Mean Corpuscular Hgb 28.4 pg (27.0-32.0); Mean Corpuscular Volume 88.4 fL (81-99); Mean Platelet Vol. 10.6 fl (6.2-12.0); Monocyte# 0.74 X10^3/uL; Monocyte% 6.2 % (0-10); NRBC Flagged by Analyzer 0 % (0-5); Neutrophil # 9.37 X10^3/uL (2.7-7.7); Neutrophil % 77.9 % (47-70); Platelet Count 251 K/mm3 (150-450); RBC Distribution Width CV 11.9 % (11.6-14.6); RBC Distribution Width SD 38.1 fl (35.1-43.9)
[2020-03-16] MEDS: Aspirin 81 MG TAB.CHEW 324 MG PO (06:23)
[2020-03-16] MEDS: Nitroglycerin SL (ED/IMG/CATH) 0.4 MG TABLET SUBLINGUAL ×3 (06:24→06:34)
[2020-03-16 06:53] LABS: Anion Gap 5 (5-15); BUN 10 mg/dL (7-18); BUN/Creat Ratio 10.7 RATIO (10-20); Calcium,Total 9.2 mg/dL (8.5-10.1); Chloride 96 mmol/L (98-107); Creatinine, Serum 0.94 mg/dL (0.55-1.02); EST Glomerular Filtration Rate 63 mL/min (>60); Est Glom Filt Rate - Afr Amer 77 mL/min (>60); Glucose 369 mg/dL (74-106); Potassium 3.9 mmol/L (3.5-5.1); Sodium Level 133 mmol/L (136-145)
--- NOTE | 2020-03-16 06:53 | RAD_ITS ---
STUDY: X-RAY CHEST REASON FOR EXAM: Female, 69 years old. CHEST PAIN; HEARTBURN SENSATION TECHNIQUE: PA and lateral views of the chest. COMPARISON: 11/08/2019 FINDINGS: Poor inspiration with some bibasilar atelectasis. There is no demonstrated pleural abnormality. Normal size heart. Normal mediastinum and wallace. Normal visualized pulmonary arteries. Normal visualized aortic arch and descending thoracic aorta. Normal visualized thoracic spine. Multiple healed right rib fractures. There is no demonstrated abnormality of the visualized soft tissue structures of the upper abdomen. RAD/Chest PA and Lateral IMPRESSION: Poor inspiration with some bibasilar atelectasis. Electronically Signed: Max Braxton MD at 7:13 EDT Tel , Service support ,
--- NOTE | 2020-03-16 07:43 | HP.PCM_ITS ---
History of Present Illness Date of Admission: 03/16/20 Chief Complaint: chest pain The patient is a 69 year old F presents with chest pain. Chest pain began today and around 6 AM and was across her chest. Also felt it in her left shoulder. Over the past few days patient has been noticing some jaw pain and increased shortness of breath. Patient is on oxygen at 4 L only at night. She presented to the emergency room because of concern given her known history of coronary artery disease. Patient had a stent placed back in December 2018 but did not have chest pain at that time. Work-up in the emergency room was unremarkable. Currently she is chest pain-free. [] Past Medical History Past Medical History (Chronic Problems): Chronic Problems (Last Reviewed 02/01/20 @ 14:18 by Les Jacobsen) GERD (gastroesophageal reflux disease) (Chronic) Type 2 diabetes mellitus (Chronic) Generalized anxiety disorder (Chronic) Diabetes (Chronic) Dermatomyositis (Chronic) COPD with exacerbation (Chronic) Hypertension (Chronic) Atherosclerotic heart disease of [place] coronary artery without angina pectoris (Chronic) Double vessel CAD of the LAD and DIAG#2 Successful PTCA/RACHEL ostial DIAG with a 2.25 x 12 Promus Synergy stent; Successful PTCA/RACHEL mid LAD with a 2.5 x 20 Promus Synergy. Per DJN @ [facility] 12/08/2018 Smoking (Chronic) Chronic respiratory failure (Chronic) On home oxygen Muscular dystrophy (Chronic) Hyponatremia (Chronic) Hypothyroidism (Chronic) COPD (chronic obstructive pulmonary disease) (Chronic) Depression (Chronic) [place] esophagus (Chronic) Postprandial bloating (Chronic) Anxiety (Chronic) Medical History: Medical History (Last Reviewed 03/16/20 @ 07:[address] Omi Evans, DO) Diabetes (Chronic) E11.9 Hypertension (Chronic) I10 Atherosclerotic heart disease of [place] coronary artery without angina pectoris (Chronic) I25.10 Double vessel CAD of the LAD and DIAG#2 Successful PTCA/RACHEL ostial DIAG with a 2.25 x 12 Promus Synergy stent; Successful PTCA/RACHEL mid LAD with a 2.5 x 20 Promus Synergy. Per DJN @ [facility] 12/08/2018 COPD (chronic obstructive pulmonary disease) (Chronic) J44.9 Depression (Chronic) F32.9 Anxiety (Chronic) F41.9 Heart disease I51.9 History of constipation Z87.19 Lung disease J98.4 SOB (shortness of breath) R06.02 Allergies amoxicillin [Amoxicillin] Allergy (Intermediate, Verified 03/16/20 06:06) Rash gabapentin [From Neurontin] Allergy (Verified 03/16/20 06:06) Shortness of breath levofloxacin [From Levaquin] Allergy (Verified 03/16/20 06:06) Hives is allergic to the red dye in the pill form, states she is fine with the iv form. pseudoephedrine HCl [From Sudafed] Allergy (Verified 03/16/20 06:06) Shortness of breath red dye Allergy (Verified 03/16/20 06:06) Hives codeine Adverse Reaction (Verified 03/16/20 06:06) HEADACHE Home Medications: Ambulatory Orders Medication Instructions Recorded aspirin 81 mg tablet,delayed 81 mg PO DAILY #90 tablet. 04/20/19 release atorvastatin 80 mg tablet 80 mg PO QHS #90 tab 11/17/19 citalopram 20 mg tablet 20 mg PO QHS #90 tab 11/21/19 clopidogrel 75 mg tablet 75 mg PO DAILY #90 tab 11/21/19 Accu Check Aundrea Plus Meter #1 ea 11/22/19 BD single use swab #200 ea 11/22/19 ipratropium bromide 17 1 inh INHALATION BID PRN #12.9 g 11/29/19 mcg/actuation HFA aerosol inhaler losartan 25 mg tablet 25 mg PO DAILY #90 tab 12/01/19 metoprolol tartrate 25 mg tablet 12.5 mg PO BID #90 tab 12/01/19 nitroglycerin 0.4 mg sublingual 0.4 mg SUBLINGUAL ONCE #25 tab 12/01/19 tablet umeclidinium 62.5 mcg/actuation 1 inh INHALATION Q24H #30 ea 12/20/19 blister powder for inhalation Accu Chek Soft click lancets #200 ea 12/22/19 blood sugar diagnostic See Rx Instructions .ROUTE 12/22/19 .MEDSUPPLY #200 ea pantoprazole 40 mg tablet,delayed 40 mg PO DAILY #60 tab 01/17/20 release risperidone 1 mg tablet 1.5 mg PO QHS 90 Days #135 tab 01/17/20 insulin detemir U-100 100 unit/mL 52 unit SC QHS #10 ml 02/08/20 subcutaneous solution metformin 500 mg tablet,extended 1,000 mg PO QPM #60 tab 02/12/20 release 24 hr albuterol sulfate 90 mcg/actuation 2 puff INHALATION Q6H PRN #18 g 02/16/20 aerosol inhaler insulin aspart U-100 100 unit/mL See Rx Instructions SC TID #15 ml 02/22/20 (3 mL) subcutaneous pen alprazolam 0.5 mg tablet 0.5 mg PO DAILY PRN #30 tab 03/08/20 Surgical History: Surgical History (Last Reviewed 03/16/20 @ 07:[address] Omi Evans DO) History of cholecystectomy Z90.49 Stented coronary artery Onset Date: 12/28/18 Z95.5 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 Successful PTCA/RACHEL mid LAD with a 2.5 x 20 Promus Synergy, post dilated with a 2.5 x 12 NC Balloon after DIAG stent deployed; 75%-->0%, no dissection. Surgical History: angioplasty - With coronary stent x2, cholecystectomy Psychiatric History: Anxiety, Depression [employer] History: No pertinent [employer] history Smoking Status: Former smoker Alcohol: None Drugs: None - *Family History Sibling Family History: Family History (Last Reviewed 03/16/20 @ 07:[address] Omi Evans DO) Brother Heart disease Mother Colon cancer Heart disease History Items: Heart Disease - Brother of massive MO at age 50 Maternal Family History: Family History (Last Reviewed 03/16/20 @ 07:[address] Omi Evans DO) Brother Heart disease Mother Colon cancer Heart disease History Items: Heart Disease Paternal Family History: Family History (Last Reviewed 03/16/20 @ 07:[address] Omi Evans DO) Brother Heart disease Mother Colon cancer Heart disease History Items: Pulmonary Disease Review of Systems Constitutional: Denies: Anorexia, Chills, Fever, Malaise, Weakness Eyes: Denies: Blurred vision, Double vision HEENT: Denies: Head Aches, Sinus Congestion, Sinus Drainage Cardiovascular: Reports: Chest Pain. Denies: Edema Respiratory: Reports: Shortness of Breath. Denies: Cough, Sputum production Gastrointestinal: Denies: Abdominal Pain, Nausea, Vomiting Genitourinary: Denies: Dysuria Musculoskeletal: Reports: Shoulder Pain Skin: Denies: Rash, Wounds Hematologic/ Lymphatic: Denies: Easy Bruising, Easy Bleeding, Hx of blood clot Comment: All review of systems were negative except as mentioned above in the history of present illness and the other review of systems. VTE Information - Inpt Only VTE Present on Admission: No VTE Mechan Device Prophylaxis: None VTE Pharm Prophylaxis ordered?: No Reason prophylaxis not ordered:: Treatment Not Indicated Patient Problems: Active and Suspected Problems (Last Reviewed 02/01/20 @ 14:18 by Les Jacobsen) Chest pain (Acute) Diabetes mellitus with hyperglycemia (Acute) - Physical Exam Vitals/I&O's: Vital Signs Temp Pulse Resp BP Pulse Ox 36.9 C 74 18 130/60 H 99 03/16/20 07:16 03/16/20 07:16 03/16/20 07:16 03/16/20 07:16 03/16/20 07:16 Oxygen Flow Rate (L/min) 2 Oxygen Delivery Method Nasal Cannula Weight: 92 kg Body Mass Index (BMI) 37.0 Finger Stick Blood Glucose 552 General: Alert, No apparent distress HEENT: Atraumatic, Normocephalic Oral: Moist Mucosa, No Gingival or Mucosal Lesions/ Ulcerations Neck: No Nodes, Thyroid Normal Size and Texture Lungs: Clear to auscultation, Normal air movement, No rhonchi, No wheeze Cardiovascular: Regular rate, Regular Rhythm, Normal S1, Normal S2, No murmurs Abdomen: Bowel Sounds Present, Soft, Non Tender, Non-Distended, No Hepato- splenomegaly Extremities: No edema, No Calf Tenderness Skin: No rashes, No breakdown Musculoskeletal: No Tenderness to Palpation of Joints or Extremities, No Muscle Wasting Psych/Mental Status: Normal Affect, Appropriate Laboratory Results 03/16/20 06:11: WBC 12.0 H, RBC 4.30, Hgb 12.2, Hct 38.0, MCV 88.4, MCH 28.4, MCHC 32.1, RDW Std Deviation 38.1, RDW Coeff of Malcom 11.9, Plt Count 251, MPV 10.6, Immature Gran % (Auto) 0.700, Neut % (Auto) 77.9 H, Lymph % (Auto) 12.2 L, [place] % (Auto) 6.2, Eos % (Auto) 2.2, Baso % (Auto) 0.8, Absolute Neuts (auto) 9.4 H, Absolute Lymphs (auto) 1.46, Nucleated RBC % 0 03/16/20 06:11: Sodium 133 L, Potassium 3.9, Chloride 96 L, Carbon Dioxide 32.0, Anion Gap 5, BUN 10, Creatinine 0.94, Estim Creat Clear Calc 45.30, Est GFR (MDRD) Af Amer 77, Est GFR (MDRD) Non-Af 63, BUN/Creatinine Ratio 10.7, Glucose 369 H, Calcium 9.2, Troponin I < 0.015 Assessment/Plan All Active Problems (Last Reviewed 02/01/20 @ 14:18 by Les Jacobsen) Chest pain (Acute) Diabetes mellitus with hyperglycemia (Acute) Acute bronchitis, unspecified (Acute) Acute respiratory failure with hypoxia and hypercapnia (Acute) COPD exacerbation (Acute) Hyperglycemia (Acute) 1. Chest pain: Atypical. DESMNOD score of 4 and a LUAN score of 1. Plan is for a stress test. Asked could do a treadmill and she says she could not. Said plan is to do a clear chemical stress test. Based on results of which patient may warrant either discharge versus cardiology consultation. In the meantime, cycle troponins. Continue with her aspirin and clopidogrel. 2. COPD: Appears to be stable at this time without any active wheezing. 3. Diabetes mellitus type 2: Continue with basal as well as prandial insulin. 4. VTE prophylaxis: Not indicated as patient is low risk given her observation status at this time. 5. Advanced care planning: Discussed with the patient. Patient wishes to be full CODE STATUS at this time. OBSV E&M: 26656 Initial observation care L2
--- NOTE | 2020-03-16 08:00 | EKG12_ITS ---
Test Reason : CP ADMISSION Blood Pressure : / mmHG Vent. Rate : 069 BPM Atrial Rate : 069 BPM P-R Int : 158 ms QRS Dur : 088 ms QT Int : 422 ms P-R-T Axes : 071 015 041 degrees QTc Int : 452 ms Normal sinus rhythm Nonspecific ST and T wave abnormality Abnormal ECG When compared with ECG of 23-OCT-2019 17:05, No significant change was found Confirmed by BANG MELVIN, ROSALIA ([id number]), film editor supervisor JAVIER COLBY ([id number]) on 03/19/2020 10:55:26 AM Referred By: ZEFERINO Confirmed By:ROSALIA CUENCA MD
[2020-03-16 09:56] LABS: Bedside Glucose 344 mg/dL (70-110)
--- NOTE | 2020-03-16 12:32 | STRESSREP_ITS ---
Stress Test Report Date: 03-16-2020 Procedure: Pharmacologic stress nuclear imaging study Indications: This pain; shortness of breath; CAD; PCI Consent: Per the patient Procedure: The patient underwent pharmacologic (Regadenoson) evaluation with a peak heart rate of 82 beats per minute (53 %predicted maximal heart rate) and a peak blood pressure of 124/66 mmHg. The baseline ECG demonstrated normal sinus rhythm. The peak pharmacologic ECG demonstrated no obvious ECG changes. There were no cardiac dysrhythmias pretest, during pharmacologic infusion, or recovery. There was no complaint of chest discomfort during pharmacologic infusion or recovery. The examination was discontinued secondary to completion of protocol. Impression: 1. Pharmacologic (Regadenoson) evaluation 2. Peak pharmacologic ECG with no obvious ECG changes. 3. There were no cardiac dysrhythmias pretest, during pharmacologic infusion, or recovery. 4. Nuclear images pending Myocardial perfusion imaging study: Technique: The patient was injected with 12.0 millicuries of technetium 99m Cardiolite and subsequently rest SPECT Cardiolite nuclear imaging was obtained in the horizontal long, vertical long, and short axis views. The patient underwent pharmacologic (Regadenoson) evaluation with a peak heart rate of 82 beats per minute (53 % percent predicted maximal heart rate) and a peak blood pressure of 124/66 mmHg. The patient was injected with 36.0 millicuries of technetium 99m Cardiolite and subsequently stress SPECT Cardiolite nuclear imaging was obtained in the horizontal long, vertical long, and short axis views. A gated Cardiolite study at peak stress was obtained. Interpretation: Rest and stress SPECT Cardiolite nuclear imaging status post realignment, normalization, and attenuation correction demonstrate relative uniform tracer uptake and myocardial perfusion appearing within normal limits. There is end systolic thickening and brightening. The gated Cardiolite study demonstrates myocardial thickening and inward wall motion. The reported LVEF is 66 %. Impression: 1. Rest and stress SPECT Cardiolite nuclear imaging demonstrate relative uniform tracer uptake and myocardial perfusion appearing within normal limits. 2. The gated Cardiolite study reports an LVEF of 66 %. This note was generated with [employer] software. It may contain incorrect words, spelling, and punctuation that were not noted in checking the note before signing.
[2020-03-16 12:46] LABS: Bedside Glucose 358 mg/dL (70-110)
[2020-03-16] MEDS: Metoprolol Tartrate 25 MG Tablet 12.5 MG PO (12:46)
[2020-03-16] MEDS: Insulin Lispro 100 UNIT/ML INSULN.PEN SC (12:48)
--- NOTE | 2020-03-16 13:34 | DCINST_ITS ---
- Discharge Diagnoses Current Active Problems: Current Active and Chronic Problems (Last Reviewed 03/16/20 @ 07:[address] Omi Evans, DO) Chest pain (Acute) Diabetes mellitus with hyperglycemia (Acute) You will use the following diet at home:: Calorie/Carbohydrate Controlled (specify 1200, 1400, etc) - 1800, Cardiac Discharge Activity: Return to Normal Activity Allergies/Adverse Reactions: Allergies amoxicillin [Amoxicillin] Allergy (Intermediate, Verified 03/16/20 06:06) Rash gabapentin [From Neurontin] Allergy (Verified 03/16/20 06:06) Shortness of breath levofloxacin [From Levaquin] Allergy (Verified 03/16/20 06:06) Hives is allergic to the red dye in the pill form, states she is fine with the iv form. pseudoephedrine HCl [From Sudafed] Allergy (Verified 03/16/20 06:06) Shortness of breath red dye Allergy (Verified 03/16/20 06:06) Hives codeine Adverse Reaction (Verified 03/16/20 06:06) HEADACHE Medications to take at Discharge aspirin 81 mg tablet,delayed release 81 mg PO DAILY #90 tablet. 04/20/19 atorvastatin 80 mg tablet 80 mg PO QHS #90 tab 11/17/19 citalopram 20 mg tablet 20 mg PO QHS #90 tab 11/21/19 clopidogrel 75 mg tablet 75 mg PO DAILY #90 tab 11/21/19 Accu Check Aundrea Plus Meter #1 ea 11/22/19 BD single use swab #200 ea 11/22/19 losartan 25 mg tablet 25 mg PO DAILY #90 tab 12/01/19 metoprolol tartrate 25 mg tablet 12.5 mg PO BID #90 tab 12/01/19 nitroglycerin 0.4 mg sublingual tablet 0.4 mg SUBLINGUAL ONCE #25 tab 12/01/19 umeclidinium 62.5 mcg/actuation blister powder for inhalation 1 inh INHALATION Q24H #30 ea 12/20/19 Accu Chek Soft click lancets #200 ea 12/22/19 blood sugar diagnostic See Rx Instructions .ROUTE .MEDSUPPLY #200 ea 12/22/19 pantoprazole 40 mg tablet,delayed release 40 mg PO DAILY #60 tab 01/17/20 risperidone 1 mg tablet 1.5 mg PO QHS 90 Days #135 tab 01/17/20 insulin detemir U-100 100 unit/mL subcutaneous solution 52 unit SC QHS #10 ml 02/08/20 metformin 500 mg tablet,extended release 24 hr 1,000 mg PO QPM #60 tab 02/12/20 albuterol sulfate 90 mcg/actuation aerosol inhaler 2 puff INHALATION Q6H PRN #18 g 02/16/20 insulin aspart U-100 100 unit/mL (3 mL) subcutaneous pen See Rx Instructions SC TID #15 ml 02/22/20 alprazolam 0.5 mg tablet 0.5 mg PO DAILY PRN #30 tab 03/08/20 Acetaminophen 1,000 mg PO TID PRN #1 tablet 03/16/20 Ibuprofen 400 mg PO TID PRN #1 tablet 03/16/20 The following prescriptions were given: Acetaminophen 1,000 mg PO TID PRN #1 tablet PRN Reason: Pain Or Fever Ibuprofen 400 mg PO TID PRN #1 tablet PRN Reason: pain. Primary Care Physician: Billy Madera MD [Primary Care Provider] - Within 2 Weeks Test Results: Test results from this visit will be discussed in further detail at your follow- up appointment, if applicable. Please Follow Up With: Donald Heller MD When: 05/17/2020 Proposed Discharge Date: 03/16/20
--- NOTE | 2020-03-16 13:36 | PCM.DC.SUM ---
Discharge Date and Diagnosis - Problem List Patient Problems: Active and Suspected Problems (Last Reviewed 03/16/20 @ 07:[address] Omi Evans DO) Chest pain (Acute) Diabetes mellitus with hyperglycemia (Acute) Date of Admission: 03/16/20 Date of Discharge: 03/16/20 - Primary Discharge Diagnosis Acute Problems: Active Problems (Last Reviewed 03/16/20 @ 07:[address] Omi Evans DO) Chest pain (Acute) Diabetes mellitus with hyperglycemia (Acute) - Secondary Discharge Diagnosis Chronic Problems: Chronic Problems (Last Reviewed 03/16/20 @ 07:[address] 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 Per ANGELO @ [facility] 12/08/2018 Smoking (Chronic) Chronic respiratory failure (Chronic) On home oxygen Muscular dystrophy (Chronic) Hyponatremia (Chronic) Hypothyroidism (Chronic) COPD (chronic obstructive pulmonary disease) (Chronic) Depression (Chronic) [place] esophagus (Chronic) Postprandial bloating (Chronic) Anxiety (Chronic) Hospital Course and Treatment Imaging Results: 03/16/20 06:53 Chest PA and Lateral [RAD] Stat 03/16/20 08:00 Nuclear Stress Test - Chemical [NM] Routine Clinical Impression(s) from Imaging Studies Chest X-Ray 03/16/20 06:53 IMPRESSION: Poor inspiration with some bibasilar atelectasis. Electronically Signed: Max Braxton MD at 7:13 EDT Tel , Service support , Operations: None Procedures: Stress test - 1. Rest and stress SPECT Cardiolite nuclear imaging demonstrate relative uniform tracer uptake and myocardial perfusion appearing within normal limits. 2. The gated Cardiolite study reports an LVEF of 66 %. Summary of Care Provided: The patient is a 69 year old F presents with chest pain. Patient said it was a rest exam that this occurred across her chest but also noted in the left shoulder as well as into her back. Troponin series as well as stress test were negative. On exam, patient had reproducible left anterior as well as posterior chest wall tenderness. Musculoskeletal. No evidence of any fracture on her x-rays. Reassurance was provided to the patient. Advised patient to utilize acetaminophen and sparing use of ibuprofen, alternating between the 2 as needed. Reassurance provided to the patient. Patient will be discharged home in stable condition. [] Patient Problems: Active and Suspected Problems (Last Reviewed 03/16/20 @ 07:[address] Omi Evans, DO) Chest pain (Acute) Diabetes mellitus with hyperglycemia (Acute) - Physical Exam Vitals/I&O's: Vital Signs Temp Pulse Resp BP Pulse Ox 36.6 C 83 24 H 134/48 H 97 03/16/20 08:13 03/16/20 12:46 03/16/20 08:13 03/16/20 12:42 03/16/20 09:15 Oxygen Flow Rate (L/min) 2 Oxygen Delivery Method Nasal Cannula Weight: 92.5 kg Body Mass Index (BMI) 37.3 Finger Stick Blood Glucose 552 Laboratory Results 03/16/20 06:11: WBC 12.0 H, RBC 4.30, Hgb 12.2, Hct 38.0, MCV 88.4, MCH 28.4, MCHC 32.1, RDW Std Deviation 38.1, RDW Coeff of Malcom 11.9, Plt Count 251, MPV 10.6, Immature Gran % (Auto) 0.700, Neut % (Auto) 77.9 H, Lymph % (Auto) 12.2 L, [place] % (Auto) 6.2, Eos % (Auto) 2.2, Baso % (Auto) 0.8, Absolute Neuts (auto) 9.4 H, Absolute Lymphs (auto) 1.46, Nucleated RBC % 0 03/16/20 06:11: Sodium 133 L, Potassium 3.9, Chloride 96 L, Carbon Dioxide 32.0, Anion Gap 5, BUN 10, Creatinine 0.94, Estim Creat Clear Calc 45.30, Est GFR (MDRD) Af Amer 77, Est GFR (MDRD) Non-Af 63, BUN/Creatinine Ratio 10.7, Glucose 369 H, Calcium 9.2, Troponin I < 0.015 03/16/20 09:06: Troponin I < 0.015 03/16/20 09:49: POC Glucose 344 H 03/16/20 12:22: Troponin I < 0.015 03/16/20 12:40: POC Glucose 358 H Current Medications Acetaminophen (Tylenol) 650 mg PO Q6H PRN PRN PRN Reason: Pain Score 1-10/Temp > 100.7 F Albuterol Sulfate (Ventolin Aerosols) 2.5 mg INHALATION Q4H PRN PRN Reason: SHORTNESS OF BREATH/WHEEZING Alprazolam (Xanax) 0.5 mg PO DAILY PRN PRN Reason: ANXIETY Aspirin (Ecotrin) 81 mg PO DAILYCM [facility] Atorvastatin Calcium (Lipitor) 80 mg PO QHS [facility] Citalopram Hydrobromide (Celexa) 20 mg PO QHS [facility] Clopidogrel Bisulfate (Plavix) 75 mg PO QHS [facility] Dextrose (D50w Syringe) 0 gm IV X1 PRN; Protocol PRN Reason: Hypoglycemia Glucagon () 1 mg IM .X1 PRN PRN Reason: Hypoglycemia Insulin Glargine (Lantus (Bkc)) 52 units SC QHS [facility] Insulin Human Lispro (Humalog Kwikpen (Bkc)) 0 unit SC TIDAC [facility]; Protocol Last Admin: 03/16/20 12:48 Dose: 6 units Documented by: Ipratropium [place] (Atrovent) 0.5 mg INHALATION Q6HWA.RT [facility] Losartan Potassium (Cozaar) 25 mg PO QHS [facility] Metformin HCl (Glucophage Xr) 1,000 mg PO DINNER [facility] Metoprolol Tartrate (Lopressor (Beta Bernarda)) 12.5 mg PO BID [facility] Last Admin: 03/16/20 12:46 Dose: 12.5 mg Documented by: Oxycodone HCl (Oxyir) 5 mg PO Q4H PRN PRN PRN Reason: Pain Score 4-5/10 Oxycodone HCl (Oxyir) 10 mg PO Q4H PRN PRN PRN Reason: Pain Score 6-10/10 Pantoprazole Sodium (Protonix) 40 mg PO QHS [facility] Risperidone (Risperdal) 1.5 mg PO QHS [facility] Sodium Chloride () 10 - 40 ml IV UD PRN PRN Reason: SALINE FLUSH Discharge Diet: Low fat/ Low Cholesterol, 1800 Calorie Control Diet Discharge Activity: Return to Normal Activity Home Medications: Medications to take at Discharge aspirin 81 mg tablet,delayed release 81 mg PO DAILY #90 tablet. 04/20/19 atorvastatin 80 mg tablet 80 mg PO QHS #90 tab 11/17/19 citalopram 20 mg tablet 20 mg PO QHS #90 tab 11/21/19 clopidogrel 75 mg tablet 75 mg PO DAILY #90 tab 11/21/19 Accu Check Aundrea Plus Meter #1 ea 11/22/19 BD single use swab #200 ea 11/22/19 losartan 25 mg tablet 25 mg PO DAILY #90 tab 12/01/19 metoprolol tartrate 25 mg tablet 12.5 mg PO BID #90 tab 12/01/19 nitroglycerin 0.4 mg sublingual tablet 0.4 mg SUBLINGUAL ONCE #25 tab 12/01/19 umeclidinium 62.5 mcg/actuation blister powder for inhalation 1 inh INHALATION Q24H #30 ea 12/20/19 Accu Chek Soft click lancets #200 ea 12/22/19 blood sugar diagnostic See Rx Instructions .ROUTE .MEDSUPPLY #200 ea 12/22/19 pantoprazole 40 mg tablet,delayed release 40 mg PO DAILY #60 tab 01/17/20 risperidone 1 mg tablet 1.5 mg PO QHS 90 Days #135 tab 01/17/20 insulin detemir U-100 100 unit/mL subcutaneous solution 52 unit SC QHS #10 ml 02/08/20 metformin 500 mg tablet,extended release 24 hr 1,000 mg PO QPM #60 tab 02/12/20 albuterol sulfate 90 mcg/actuation aerosol inhaler 2 puff INHALATION Q6H PRN #18 g 02/16/20 insulin aspart U-100 100 unit/mL (3 mL) subcutaneous pen See Rx Instructions SC TID #15 ml 02/22/20 alprazolam 0.5 mg tablet 0.5 mg PO DAILY PRN #30 tab 03/08/20 Acetaminophen 1,000 mg PO TID PRN #1 tablet 03/16/20 Ibuprofen 400 mg PO TID PRN #1 tablet 03/16/20 Following Prescriptions Were Given to Patient: Acetaminophen 1,000 mg PO TID PRN #1 tablet PRN Reason: Pain Or Fever Ibuprofen 400 mg PO TID PRN #1 tablet PRN Reason: pain. Primary Care Physician: Billy Madera MD [Primary Care Provider] - Within 2 Weeks Please Follow Up With: Donald Heller MD When: 05/17/2020 Disposition: Home Minutes spent on discharge:: 35 Patient Condition:: Good Medical Necessity - Tobacco Use Smoking Status: Former smoker Meaningful Use Info Meaningful Use Diagnoses (Choose all that apply): None applicable OBSV E&M: 54232 Observ/hosp same date L2 - Disregard the admitting 08624 code.
== END 2020-03-16 13:35 | disposition home or self-care (01) ==
LOC: ED 07:10 → PCU 07:45
PROVIDERS: Emergency Provider Emergency Medicine; PCP Internal Medicine
DX: R07.89 Other chest pain (principal); J44.9 Chronic obstructive pulmonary disease, unspecified; E11.65 Type 2 diabetes mellitus with hyperglycemia; I25.10 Atherosclerotic heart disease of native coronary artery without angina pectoris; J96.10 Chronic respiratory failure, unspecified whether with hypoxia or hypercapnia; F32.9 Major depressive disorder, single episode, unspecified; K21.9 Gastro-esophageal reflux disease without esophagitis; F41.1 Generalized anxiety disorder; E03.9 Hypothyroidism, unspecified; I10 Essential (primary) hypertension; R68.84 Jaw pain; G71.00 Muscular dystrophy, unspecified; Z95.5 Presence of coronary angioplasty implant and graft; Z79.02 Long term (current) use of antithrombotics/antiplatelets; Z99.81 Dependence on supplemental oxygen; Z79.82 Long term (current) use of aspirin; Z79.899 Other long term (current) drug therapy; Z79.4 Long term (current) use of insulin; Z87.891 Personal history of nicotine dependence
CPT/HCPCS: 36415; 71046; 78452; 80048; 82962; 84484; 85025; 93005; 93017; 99218; 99285; A9500; A4216; G0378; J2785

== ENCOUNTER 2020-03-20 12:51 | Emergency (ER) | payer MEDICARE, SELFPAY ==
[2019-12-21 09:57] VITALS: BMI 34.9
[2020-03-16 08:14] VITALS: BMI 37.3
[2020-03-20 12:52] VITALS: BP 140/71; PULSE 76; RESP 22; TEMP 36.8; O2SAT 96; BMI 37.0
--- NOTE | 2020-03-20 13:16 | ED.DCSUM_ITS ---
- ER Visit Summary Date of Service: 03/20/20 Chief Complaint: [Laceration to right index finger] History of Present Illness: The patient is a 69 F [presents to the emergency department with a laceration to her right index finger that occurred prior to arrival in the emergency department. Patient states that she was putting down an umbrella that she had just bought I was on her patio when it accidentally lacerated her finger. She tried to wrap it with a Band-Aid but could not get the bleeding to stop so she presents for evaluation. Patient unsure of her last tetanus. Patient also with history of COPD but states that her breathing is no different than usual. Patient normally wears home O2 at night when she sleeping. Patient is right-hand dominant.] Physical Examination: [HEENT-PERRLA, EOMI. Cranial nerves II through XII grossly intact. TMs clear. Mucous membranes moist. No adenopathy. Cardiovascular-regular rate and rhythm without murmur or ectopy Lungs-clear to auscultation, chest wall stable without crepitus or subcu emphysema Abdomen-normoactive bowel sounds, soft, nontender, no rebound or rigidity, no peritoneal signs. Extremities-intact ?4, normal range of motion, normal pulses. Right index finger-patient has a skin avulsion over the lateral aspect of the DIP of the right index finger with small amount of blood continuously oozing. She is neurovascular intact distally. She is a normal range of motion of flexion- extension of the digit.] Test Results: [None indicated] Emergency Department Course and Treatment: [Patient had the finger run under water. Finger was dried. Using Gelfoam I was able to obtain good hemostasis and clean dressing was applied. Patient given Adacel tetanus booster.] Treatment Plan: [Patient to follow-up with primary care physician in 3 to 5 days for wound check. Patient advised to return if worsening pain, fever, or purulent drainage. Patient advised not to take off the Gelfoam but only cut away the edges as they start to curl up away from the skin.] Disposition: [Discharged home in stable condition] Impression: [Right index finger skin avulsion with Gelfoam repair] This note was generated with [employer] software. It may contain incorrect words, spelling, and punctuation that were not noted in review of the chart prior to signing ED Disposition - Plan for ED Patient: Referrals: Billy Madera MD [Primary Care Provider] -
--- NOTE | 2020-03-20 13:19 | ED.DEP ---
ED Disposition - Plan for ED Patient: Instructions: ED Laceration Hand Referrals: Billy Madera MD [Primary Care Provider] - 3-5 Days
[2020-03-20] MEDS: Diphth,Pertuss(Acell),Tet Vac 0.5 ML Vial IM (14:04)
[2020-03-20 14:08] VITALS: BP 158/100; PULSE 66; RESP 20
== END 2020-03-20 14:15 | disposition home or self-care (01) ==
LOC: ED 13:22
PROVIDERS: Emergency Provider Emergency Medicine; PCP Internal Medicine
DX: S61.200A Unspecified open wound of right index finger without damage to nail, initial encounter (principal); Z23 Encounter for immunization; E11.9 Type 2 diabetes mellitus without complications; I25.10 Atherosclerotic heart disease of native coronary artery without angina pectoris; J44.9 Chronic obstructive pulmonary disease, unspecified; Z99.81 Dependence on supplemental oxygen; Z87.891 Personal history of nicotine dependence; W26.8XXA Contact with other sharp object(s), not elsewhere classified, initial encounter; Y93.89 Activity, other specified; Y92.007 Garden or yard of unspecified non-institutional (private) residence as the place of occurrence of the external cause; Y99.8 Other external cause status
CPT/HCPCS: 90471; 90715; 99282

== ENCOUNTER → 2020-06-04 | Outpatient (CLI) | payer MEDICARE, SELFPAY ==
[2019-12-21 09:57] VITALS: BMI 34.9
--- NOTE | 2020-06-04 09:11 | RAD_ITS ---
HISTORY: FALL X 3 WEEKS, PAIN ADDITIONAL HISTORY: None provided. EXAMINATION/TECHNIQUE: XR Wrist Min 3 Views Left Number of images including paperwork: 3 COMPARISON: None FINDINGS: BONES: No acute fracture. Mineralization appears decreased. JOINTS: No subluxation. SOFT TISSUES: No distinct foreign body. RAD/Wrist min 3 Views IMPRESSION: No acute osseous abnormality. at 0437 Reported and signed by: Reba Chavira MD Electronically Signed: Reba Chavira MD at 4:36 EDT Tel , Service support ,
--- NOTE | 2020-06-04 09:11 | RAD_ITS ---
HISTORY: FALL X 3 WEEKS, PAIN ADDITIONAL HISTORY: None provided. EXAMINATION/TECHNIQUE: XR Knee Complete 4 Views or More Right Number of images including paperwork: 4 COMPARISON: None FINDINGS: BONES: No acute fracture. JOINTS: No subluxation. Moderate medial compartment joint space narrowing. Mild patellofemoral degenerative changes. SOFT TISSUES: No distinct foreign body. RAD/Knee 4 or More Views IMPRESSION: Degenerative changes without acute osseous abnormality. at 0438 Reported and signed by: Reba Chavira MD Electronically Signed: Reba Chavira MD at 4:38 EDT Tel , Service support ,
--- NOTE | 2020-06-04 09:25 | RAD_ITS ---
HISTORY: FALL X 3 WEEKS, PAIN ADDITIONAL HISTORY: None provided. EXAMINATION/TECHNIQUE: XR Knee Complete 4 Views or More Left Number of images including paperwork: 8 COMPARISON: None FINDINGS: BONES: No acute fracture. JOINTS: No subluxation. SOFT TISSUES: No distinct foreign body. RAD/Knee 4 or More Views IMPRESSION: No acute osseous abnormality. at 0529 Reported and signed by: Reba Chavira MD Electronically Signed: Reba Chavira MD at 5:29 EDT Tel , Service support ,
== END | disposition home or self-care (01) ==
LOC: RAD 09:11
PROVIDERS: PCP Internal Medicine; Referring Provider Nurse Practitioner Family; Visit Provider Nurse Practitioner Family
DX: M25.532 Pain in left wrist (principal); M25.561 Pain in right knee; M25.562 Pain in left knee; W19.XXXA Unspecified fall, initial encounter
CPT/HCPCS: 73110; 73564

== ENCOUNTER → 2020-06-20 09:15 | Outpatient (CLI) | payer MEDICARE, SELFPAY ==
[2020-06-11 17:57] VITALS: BMI 34.9
== END ==
PROVIDERS: PCP Internal Medicine; Referring Provider Nurse Practitioner Family; Visit Provider Nurse Practitioner Family
DX: R05 Cough (principal); R06.02 Shortness of breath
CPT/HCPCS: 87635; C9803; U0003

== ENCOUNTER 2020-06-21 17:16 | Emergency (ER) | payer MEDICARE, SELFPAY ==
[2020-06-11 17:57] VITALS: BMI 34.9
[2020-06-21 17:17] VITALS: BP 174/112; PULSE 64; RESP 24; TEMP 36.3; O2SAT 100; BMI 36.6
[2020-06-21 17:19] VITALS: BP 174/112; PULSE 64; RESP 24; TEMP 36.3; O2SAT 99
[2020-06-21 17:29] VITALS: O2SAT 99
--- NOTE | 2020-06-21 17:29 | EKG12_ITS ---
Test Reason : Blood Pressure : / mmHG Vent. Rate : 064 BPM Atrial Rate : 064 BPM P-R Int : 160 ms QRS Dur : 078 ms QT Int : 422 ms P-R-T Axes : 051 033 044 degrees QTc Int : 435 ms Normal sinus rhythm Normal ECG Confirmed by BANG MELVIN, ROSALIA ([id number]), digital editor JAVIER COLBY ([id number]) on 06/25/2020 8:44:45 AM Referred By: DAX Confirmed By:ROSALIA CUENCA MD
--- NOTE | 2020-06-21 17:30 | ED.VIS.GEN ---
History of Present Illness Chief Complaint: Shortness of Breath Informant: Patient Onset: Days Narrative: 69-year-old female with past medical history of hypertension, hyperlipidemia, type 2 diabetes, cardiac stents on aspirin/Plavix, COPD on 4 L O2 at night presents with complaints of shortness of breath. She states for the last 4 days she has had chills, sore throat, headache, and a mild cough. She had an outpatient Covid test done 2 days ago which is pending. Today she was sitting at the computer when she darted feeling short of breath and this has been persistent. Denies orthopnea or dyspnea on exertion. No leg pain or swelling. She also had some had some sharp left-sided chest pain under her left breast and around to the back. It resolved after 20 minutes. She had another similar episode of pain at rest, but none now. It is not exertional. Nonpleuritic. No radiation. No nausea, vomiting, or diaphoresis. She had a heart cath in December 2019 which is when they placed 2 cardiac stents. Denies fevers, abdominal pain, nausea, vomiting, diarrhea. She called her PCP and they sent her into the ED for chest x-ray. Denies history of DVT/PE, recent surgery or travel, or leg pain or swelling. Past Medical History - Allergies and Home Meds Allergies/Adverse Reactions: Allergies amoxicillin [Amoxicillin] Allergy (Intermediate, Verified 06/12/20 10:57) Rash gabapentin [From Neurontin] Allergy (Verified 06/12/20 10:57) Shortness of breath levofloxacin [From Levaquin] Allergy (Verified 06/12/20 10:57) Hivtj is allergic to the red dye in the pill form, states she is fine with the iv form. pseudoephedrine HCl [From Sudafed] Allergy (Verified 06/12/20 10:57) Shortness of breath red dye Allergy (Verified 06/12/20 10:57) Hives codeine Adverse Reaction (Verified 06/12/20 10:57) HEADACHE Primary Care Physician: Billy Mdaera MD [Primary Care Provider] - Past Medical History: - - hypertension, hyperlipidemia, type 2 diabetes, CAD, cardiac stents, COPD Surgical History: angioplasty - With coronary stent x2, cholecystectomy Smoking Status: Former smoker - Family History Sibling Family History: Family History (Last Reviewed 06/13/20 @ 16:[address] Donald Heller MD) Brother Heart disease Mother Colon cancer Heart disease Family History: Reports: Heart Disease - Brother of massive MT at age 50 Maternal Family History: Family History (Last Reviewed 06/13/20 @ 16:[address] Donald Heller MD) Brother Heart disease Mother Colon cancer Heart disease Family History: Reports: Heart Disease Paternal Family History: Family History (Last Reviewed 06/13/20 @ 16:[address] Donald Heller MD) Brother Heart disease Mother Colon cancer Heart disease Family History: Reports: Pulmonary Disease Review of Systems General: Reports: Chills. Denies: Fever, Malaise Eyes: Denies: Visual changes - bilaterally, Diplopia ENT: Denies: Rhinorrhea, Sore throat Cardiovascular: Reports: Chest pain. Denies: Palpitations Respiratory: Reports: Dyspnea, Cough. Denies: Sputum, Dyspnea on exertion, Orthopnea, Paroxysmal nocturnal dyspnea Gastrointestinal: Denies: Abdominal pain, Nausea, Vomiting, Diarrhea, Melena, Hematochezia Genitourinary: Denies: Dysuria, Hematuria, Frequency Musculoskeletal: Denies: Back pain, Extremity Pain Skin: Denies: Rash, Wounds Neurological: Reports: Headache. Denies: Weakness, Parasthesia, Numbness Physical Exam Vital Signs/Narrative: Vital Signs Temp Pulse Resp BP Pulse Ox 06/21/20 17:17 97.3 F L 64 24 H 174/112 H 100 General: Well nourished, Well developed, No Acute Distress Head: Normocephalic, Atraumatic Eyes: EOMI ENT: Moist mucous membranes, No rhinorrhea Neck: Supple, Nontender Cardiovascular: Regular rate, Regular rhythm, No murmurs Respiratory: CTA bilaterally, Chest nontender, Chest tenderness, - - tachypneic 24/min. tender to palpation over left anterior ribs under left breast. No deformity or crepitus. Abdomen: - Diagnostic/Tx/Re-eval - Medical Decision Making Patient appears well and nontoxic. Vital signs show 24 RR, otherwise unremarkable. 100% on RA. Nursing staff states she is not tachypneic when she removed her mask. Heart is regular rate and rhythm. Lungs are clear to auscultation. She does have reproducible chest wall tenderness on left anterior lower ribs. Lab work and chest x-ray pending and with stable vital signs patient will likely be discharged home. ED Disposition - Plan for ED Patient: Referrals: Billy Madera MD [Primary Care Provider] -
--- NOTE | 2020-06-21 17:48 | RAD_ITS ---
STUDY: X-RAY CHEST REASON FOR EXAM: Female, 69 years old. DYSPNEA TECHNIQUE: Single frontal view of the chest. COMPARISON: 03/16/2020 FINDINGS: Calcified granuloma in the right upper lobe. There is no demonstrated pleural abnormality. Normal size heart. Normal mediastinum and wallace. Normal visualized pulmonary arteries. Normal visualized aortic arch and descending thoracic aorta. Normal visualized thoracic spine. Normal visualized ribs, clavicles, and shoulders. There is no demonstrated abnormality of the visualized soft tissue structures of the upper abdomen. RAD/Chest 1 View (Portable) IMPRESSION: No acute pulmonary findings. Electronically Signed: Dago Goodman MD at 18:22 EST Tel , Service support ,
[2020-06-21 17:53] VITALS: O2SAT 99
[2020-06-21 17:57] LABS: Absolute Lymphocyte Count 1.62 X10^3/uL (0.83-4.51); Absolute Neutrophil Count 7.4 X10^3/uL (2.0-7.7); Basophil# 0.07 X10^3/uL; Basophil% 0.7 % (0-1); Eosinophil# 0.23 X10^3/uL; Eosinophils% 2.3 % (0-5); Hematocrit 37.2 % (37-47); Hemoglobin 12.1 g/dL (12.0-15.0); Lymphocyte # 1.62 X10^3/ul (4.0); Lymphocyte % 16.4 % (19-41); Mean Corp Hgb Conc 32.5 g/dL (32-36); Mean Corpuscular Hgb 28.5 pg (27.0-32.0); Mean Corpuscular Volume 87.7 fL (81-99); Mean Platelet Vol. 10.9 fl (6.2-12.0); Monocyte# 0.56 X10^3/uL; Monocyte% 5.7 % (0-10); NRBC Flagged by Analyzer 0 % (0-5); Neutrophil # 7.37 X10^3/uL (2.7-7.7); Neutrophil % 74.4 % (47-70); Platelet Count 266 K/mm3 (150-450); RBC Distribution Width CV 12.1 % (11.6-14.6); RBC Distribution Width SD 38.6 fl (35.1-43.9); Red Blood Count 4.24 M/mm3 (4.2-5.4); White Blood Count 9.9 K/mm3 (4.4-11.0)
[2020-06-21 18:12] LABS: D-Dimer Quantitative (DVT/PE) 0.33 FEU/ug/m (0.27-0.49)
[2020-06-21 18:44] LABS: AST(SGOT) 9 U/L (15-37); Alanine Aminotransfer ALT/SGPT 21 U/L (13-56); Albumin, Serum 3.5 g/dL (3.2-5.0); Alkaline Phosphatase 122 U/L (45-117); Anion Gap 7 (5-15); BUN 11 mg/dL (7-18); BUN/Creat Ratio 10.7 RATIO (10-20); Calcium,Total 9.1 mg/dL (8.5-10.1); Chloride 95 mmol/L (98-107); Creatinine, Serum 1.03 mg/dL (0.55-1.02); EST Glomerular Filtration Rate 57 mL/min (>60); Est Glom Filt Rate - Afr Amer 68 mL/min (>60); Estimated Creatinine Clearance 41.34 ml/min; Globulin 3.5 g/dL (2.2-4.2); Glucose 485 mg/dL (74-106); Potassium 3.9 mmol/L (3.5-5.1); Sodium Level 130 mmol/L (136-145)
[2020-06-21 18:45] LABS: Lactic Acid 2.5 mmol/L (0.4-1.9)
[2020-06-21 18:47] LABS: BNP,B-Type NATRIURETIC PEPTIDE 60.9 pg/mL (0-100)
--- NOTE | 2020-06-21 19:13 | ED.DEP ---
ED Disposition - Plan for ED Patient: Disposition: Home or Assisted Living Diagnosis: Chest wall pain, Dyspnea, Hyperglycemia due to diabetes mellitus Instructions: ED Chest Pain NonCardiac Referrals: Billy Madera MD [Primary Care Provider] - As soon as possible
[2020-06-21 19:29] VITALS: RESP 20
[2020-06-21 21:54] LABS: Reflex Lactate? Y
== END 2020-06-21 19:30 | disposition home or self-care (01) ==
PROVIDERS: Physician Assistant; Emergency Provider Emergency Medicine; PCP Internal Medicine
DX: E11.65 Type 2 diabetes mellitus with hyperglycemia (principal); J44.9 Chronic obstructive pulmonary disease, unspecified; E78.5 Hyperlipidemia, unspecified; I10 Essential (primary) hypertension; Z95.5 Presence of coronary angioplasty implant and graft; Z99.81 Dependence on supplemental oxygen; Z87.891 Personal history of nicotine dependence
CPT/HCPCS: 71045; 80053; 83605; 83880; 84484; 85025; 85379; 93005; 99284; A4216

== ENCOUNTER → 2020-06-28 12:48 | Outpatient (CLI) | payer MEDICARE, SELFPAY ==
[2020-04-12 12:59] VITALS: BMI 37.0
[2020-06-11 17:57] VITALS: BMI 34.9
[2020-06-21 17:17] VITALS: BMI 36.6
--- NOTE | 2020-06-30 10:42 | PFT ---
INTRODUCTION: The patient is a 69-year-old female that presents for pulmonary function studies secondary to a diagnosis of COPD. Respiratory therapy reports good patient effort. Bronchodilators were used during testing. INTERPRETATION: Forced expiration spirometry demonstrates the presence of a moderately severe large airways obstructive ventilatory defect. There was a significant response to aerosolized bronchodilators noted. Spirograms are of fair quality, but do not plateau indicating slow emptying of the lungs. Body plethysmography was performed and revealed an elevated RV to 177% of predicted, indicative of underlying air trapping. Diffusing capacity by single breath CO is reduced at 60% of predicted. IMPRESSION: Partially reversible moderately severe large airways obstructive ventilatory defect with associated air trapping and symmetric reduction in diffusing capacity.
== END ==
PROVIDERS: PCP Internal Medicine; Referring Provider Nurse Practitioner Acute Care; Visit Provider Nurse Practitioner Acute Care
DX: J44.9 Chronic obstructive pulmonary disease, unspecified (principal)
CPT/HCPCS: 94060; 94726; 94729

== ENCOUNTER 2020-06-29 16:23 | Emergency (ER) | payer MEDICARE, SELFPAY ==
[2020-06-11 17:57] VITALS: BMI 34.9
[2020-06-29 16:27] VITALS: BP 138/62; PULSE 65; RESP 22; TEMP 36.6; O2SAT 98; BMI 38.5
--- NOTE | 2020-06-29 16:42 | RAD_ITS ---
STUDY: X-RAY - RIGHT Humerus REASON FOR EXAM: Female, 69 years old. Tripped by dog and fell, arm pain, swelling to posterior elbow TECHNIQUE: 2 view(s) of the elbow. COMPARISON: None. FINDINGS: Intact humerus. Comminuted nondisplaced fracture of the olecranon. Irregular appearance with some evidence of possible lytic lesion. No elbow dislocation. Severe soft tissue swelling. Consider further evaluation with MRI. RAD/Humerus min 2 Views IMPRESSION: Intact humerus. Comminuted nondisplaced fracture of the olecranon better assessed on elbow series. Consider further evaluation with MRI. Electronically Signed: Paulo Larson, at 18:12 EST Tel , Service support ,
--- NOTE | 2020-06-29 16:42 | RAD_ITS ---
STUDY: X-RAY - LEFT HAND REASON FOR EXAM: Female, 69 years old. Tripped by dog and fell, laceration, bruising and swelling to 2nd digit TECHNIQUE: 3 view(s) of the hand. COMPARISON: None. FINDINGS: No acute fracture, dislocation or osseous destruction. No significant joint space narrowing. No significant productive changes. Soft tissue swelling second digit without underlying osseous abnormality. IMPRESSION: Soft tissue swelling second digit without underlying osseous abnormality. Electronically Signed: Paulo Larson, at 18:32 EST Tel , Service support , RAD/Hand Min 3 Views
--- NOTE | 2020-06-29 16:42 | CT_ITS ---
STUDY: CT CERVICAL SPINE WITHOUT CONTRAST REASON FOR EXAM: Female, 69 years old. Fell, NO LOC, HTN, DB,COPD,MUSCULAR DYSTROPHY RADIATION DOSAGE (If Supplied By Facility): CTDIvol = ( 27.18 ) mGy, DLP = ( 561.65 ) mGycm TECHNIQUE: High resolution transaxial imaging was performed without contrast material. Sagittal and coronal images were reconstructed. Individualized dose optimization techniques were used for this CT. COMPARISON: None FINDINGS: Normal craniovertebral junction. Normal anterior atlantoaxial articulation. Normal odontoid process. Normal cervical lordosis. Normal vertebral bodies and posterior osseous elements. C2-3: Normal endplates. Normal disc height and morphology. Normal central canal and intervertebral neuroforamina. C3-4: Normal endplates. Normal disc height and morphology. Normal central canal and intervertebral neuroforamina. C4-5: Normal endplates. Normal disc height and morphology. Normal central canal and intervertebral neuroforamina. C5-6: Mildly sclerotic endplates. Mild loss of disc height. Marginal osteophytes. Mild posterior disc bulge. C6-7: Normal endplates. Normal disc height and morphology. Normal central canal and intervertebral neuroforamina. C7-T1: Normal endplates. Normal disc height and morphology. Normal central canal and intervertebral neuroforamina. Normal visualized soft tissue structures. CT/Spine Cervical without Contras IMPRESSION: No definite acute or significant abnormality seen. Electronically Signed: Eleuterio Weldon MD at 17:43 EST , Service support ,
--- NOTE | 2020-06-29 16:42 | RAD_ITS ---
STUDY: X-RAY - RIGHT RADIUS AND ULNA REASON FOR EXAM: Female, 69 years old. Tripped by dog and fell, arm pain, swelling to posterior elbow TECHNIQUE: 2 view(s) of the forearm. COMPARISON: None. FINDINGS: Intact radius Comminuted nondisplaced fracture of the olecranon. Irregular appearance with some evidence of possible lytic lesion. Severe soft tissue swelling. Consider further evaluation with MRI. RAD/Forearm 2 Views IMPRESSION: Comminuted nondisplaced fracture of the olecranon. Irregular appearance with questionable associated lytic lesion. Consider further evaluation with MRI. Electronically Signed: Paulo Larson, at 18:09 EST Tel , Service support ,
--- NOTE | 2020-06-29 16:42 | CT_ITS ---
STUDY: CT BRAIN WITHOUT CONTRAST REASON FOR EXAM: Female, 69 years old. FELL, NO LOC, HTN, DB,COPD,MUSCULAR DYSTROPHY RADIATION DOSAGE (If Supplied By Facility): CTDIvol = ( 44.99 ) mGy, DLP = ( 796.11 ) mGycm TECHNIQUE: Transaxial CT imaging of the brain was performed without administration of intravenous contrast material. Individualized dose optimization techniques were used for this CT. COMPARISON: No relevant priors. FINDINGS: Normal soft tissue structures. Normal calvarium. Normal size ventricles and extra-axial spaces for the patient''s age. Normal white matter tracts of the cerebral hemispheres. There are bilateral lacunar infarcts of the basal ganglia, worse on the right. Normal brainstem. Normal cerebellum. There is no intracranial hemorrhage. There are no findings of an acute ischemic infarction. Normal visualized paranasal sinuses. CT/Brain/Head without Contrast IMPRESSION: No acute abnormality. Remote bilateral lacunar infarcts of the basal ganglia. Electronically Signed: Eleuterio Weldon MD at 17:39 EST , Service support ,
--- NOTE | 2020-06-29 16:47 | ED.DCSUM_ITS ---
- ER Visit Summary Date of Service: 06/29/20 Chief Complaint: Fall History of Present Illness: The patient is a 69 F who fell when her dog pulled her over. She hit the back of her head but did not lose consciousness. She also complains of pain and abrasions to her left index finger and right elbow. No other injuries. No other complaints. Physical Examination: Afebrile and vital signs unremarkable. She has a contusion to her occiput. There is an abrasion, but no sign of laceration or active bleeding. Neck is nontender. Left index finger shows multiple abrasions and skin tears with diffuse swelling. Right elbow diffusely swollen over the olecranon process. Limited range of motion secondary to pain. Neurovascular intact distally. She does have some superficial abrasions and skin tears around her right elbow. Otherwise her exam is unremarkable. Test Results: CT brain and cervical spine are pending. X-rays of her left hand, right humerus, right elbow, right forearm pending. Emergency Department Course and Treatment: Patient requested Tylenol for pain. I also updated her tetanus immunization. Imaging is pending. CT brain and cervical spine showed nothing acute. Patient has an abrasion to he r scalp, with examination, I cannot find a laceration. Abrasions to her right arm and left hand were cleaned and treated with bacitracin. Dressed. Left hand x-rays were unremarkable. Right arm x-rays show a comminuted nondisplaced olecranon fracture with a questionable lytic lesion. I discussed this with Dr. Mason. He can follow-up for the lytic lesion as well as the fracture. Patient was placed in an Ortho-Glass splint, fabricated by me. She was neurovascular intact distally. She tolerated this well. She was given splint precautions. Placed in a sling. Prescription for [place], she has tolerated this in the past. Follow-up with Ortho on Wednesday. Return right away for any complications as discussed. Treatment Plan: As above Disposition: Discharge Impression: Concussion, right olecranon fracture, left hand contusion This note was generated with [employer] software. It may contain incorrect words, spelling, and punctuation that were not noted in review of the chart prior to signing ED Disposition - Plan for ED Patient: Referrals: Billy Madera MD [Primary Care Provider] -
[2020-06-29] MEDS: Acetaminophen 500 MG Tablet 1000 MG PO (16:48)
[2020-06-29] MEDS: Diphth,Pertuss(Acell),Tet Vac 0.5 ML Vial IM (16:49)
--- NOTE | 2020-06-29 17:00 | RAD_ITS ---
STUDY: X-RAY - RIGHT ELBOW REASON FOR EXAM: Female, 69 years old. Tripped by dog and fell, arm pain, swelling to posterior elbow TECHNIQUE: 3 view(s) of the elbow. COMPARISON: None. FINDINGS: Intact radius Comminuted nondisplaced fracture of the olecranon. Irregular appearance with some evidence of possible lytic lesion. No elbow dislocation. Severe soft tissue swelling. Consider further evaluation with MRI. RAD/Elbow min 3 Views IMPRESSION: Comminuted nondisplaced fracture of the olecranon. Irregular appearance with questionable associated lytic lesion. Consider further evaluation with MRI. Electronically Signed: Paulo Larson, at 18:10 EST Tel , Service support ,
--- NOTE | 2020-06-29 18:37 | DCINST.ED_ITS ---
ED Disposition - Plan for ED Patient: Instructions: ED FRACTURE Elbow Prescriptions: Hydrocodone Bitart/Apap 5-325 [[place] 5MG-325MG] 1 tab PO Q6H PRN PRN 3 Days #12 tab PRN Reason: Pain Prescription Printed Referrals: Raz Mason DO [STAFF PHYSICIAN] -
[2020-06-29] MEDS: BACITRACIN 15 GM Tube 1 APPLIC TOPICAL (18:59)
[2020-06-29 19:07] VITALS: BP 136/52; RESP 22; O2SAT 98
== END 2020-06-29 19:08 | disposition home or self-care (01) ==
LOC: ED 17:44
PROVIDERS: Emergency Provider Emergency Medicine; PCP Internal Medicine
DX: S06.0X9A Concussion with loss of consciousness of unspecified duration, initial encounter (principal); S52.021A Displaced fracture of olecranon process without intraarticular extension of right ulna, initial encounter for closed fracture; S60.222A Contusion of left hand, initial encounter; I25.10 Atherosclerotic heart disease of native coronary artery without angina pectoris; E11.9 Type 2 diabetes mellitus without complications; J44.9 Chronic obstructive pulmonary disease, unspecified; K21.9 Gastro-esophageal reflux disease without esophagitis; W19.XXXA Unspecified fall, initial encounter; Z79.4 Long term (current) use of insulin; Z87.891 Personal history of nicotine dependence
CPT/HCPCS: 29125; 70450; 72125; 73060; 73080; 73090; 73130; 90471; 90715; 99284

== ENCOUNTER → 2020-07-12 13:50 | Outpatient (CLI) | payer MEDICARE, SELFPAY ==
[2020-06-11 17:57] VITALS: BMI 34.9
[2020-06-29 16:27] VITALS: BMI 38.5
[2020-07-12 10:31] VITALS: BMI 36.6
--- NOTE | 2020-07-12 13:53 | CT_ITS ---
STUDY: CT RIGHT ELBOW WITHOUT CONTRAST REASON FOR EXAM: Female, 69 years old. PAIN IN RT ELBOW AFTER FALL 06/29 RADIATION DOSAGE (If Supplied By Facility): CTDIvol = ( 44.33 ) mGy, DLP = ( 1033.12 ) mGycm TECHNIQUE: Transaxial CT imaging of the elbow was performed. Sagittal and coronal images were reconstructed. Individualized dose optimization techniques were used for this CT. COMPARISON: Comparison is made with the radiograph of the right elbow dated 06/29/2020. FINDINGS: Comminuted avulsion fracture of the olecranon process of the proximal ulna. Normal radiocapitellar and ulnotrochlear articulations. Diffuse soft tissue swelling. Joint effusion. CT/Extremity Upper without Contra IMPRESSION: Comminuted avulsion fracture of the olecranon process of the proximal ulna. No soft tissue masses seen. Soft tissue swelling. Joint effusion. Electronically Signed: Bruce Lubin, at 14:54 EST , Service support ,
== END ==
PROVIDERS: PCP Internal Medicine; Referring Provider Orthopaedic Surgery; Visit Provider Orthopaedic Surgery
DX: M25.521 Pain in right elbow (principal)
CPT/HCPCS: 73200

== ENCOUNTER 2020-07-15 18:22 | Inpatient (IN) | payer MEDICARE, SELFPAY ==
[2020-06-11 17:57] VITALS: BMI 34.9
[2020-07-12 10:31] VITALS: BMI 36.6
[2020-07-15] VITALS (11 sets, daily range): BP systolic 136–194; BP diastolic 71–131; PULSE 86–131; RESP 12–41; TEMP 36.1–36.6; O2SAT 94–100; BMI 39.9
--- NOTE | 2020-07-15 18:34 | EKG12_ITS ---
Test Reason : SOB Blood Pressure : / mmHG Vent. Rate : 129 BPM Atrial Rate : 129 BPM P-R Int : 136 ms QRS Dur : 082 ms QT Int : 298 ms P-R-T Axes : 074 029 019 degrees QTc Int : 436 ms Sinus tachycardia with occasional Premature ventricular complexes Nonspecific ST abnormality Abnormal ECG Confirmed by RAMIREZ MELVIN, ARPITA ([id number]), film and video editor JAVIER COLBY ([id number]) on 07/17/2020 1:03:16 PM Referred By: CHE Confirmed By:ARPITA GUZMÁN MD
--- NOTE | 2020-07-15 18:34 | RAD_ITS ---
STUDY: X-RAY CHEST REASON FOR EXAM: Female, 69 years old. Increasing shortness of breath. TECHNIQUE: AP portable COMPARISON: 06/21/2020 FINDINGS: Diffuse bilateral perihilar interstitial thickening with patchy areas of increased density in the lower lobes more severe on the right possibly representing atypical viral pneumonia.. There is no demonstrated pleural abnormality. Heart is enlarged. Normal visualized aortic arch and descending thoracic aorta. Normal visualized thoracic spine. Normal visualized ribs, clavicles, and shoulders. There is no demonstrated abnormality of the visualized soft tissue structures of the upper abdomen. RAD/Chest 1 View (Portable) IMPRESSION: Findings suspicious for Covid 19 pneumonia. Clinical correlation is recommended Electronically Signed: Marco Chong MD at 19:59 EST , Service support ,
--- NOTE | 2020-07-15 19:08 | ED.RN ---
PT'S WANTS HER DAUGHTER IN LAW CALLED, JAMAL [phone]
[2020-07-15 19:19] LABS: Absolute Lymphocyte Count 1.34 X10^3/uL (0.83-4.51); Absolute Neutrophil Count 8.2 X10^3/uL (2.0-7.7); Eosinophil# 0.11 X10^3/uL; Eosinophils% 1.1 % (0-5); Hematocrit 33.3 % (37-47); Hemoglobin 10.6 g/dL (12.0-15.0); Lymphocyte # 1.34 X10^3/ul (4.0); Lymphocyte % 12.9 % (19-41); Mean Corp Hgb Conc 31.8 g/dL (32-36); Mean Corpuscular Volume 88.1 fL (81-99); Mean Platelet Vol. 10.9 fl (6.2-12.0); Monocyte# 0.53 X10^3/uL; Monocyte% 5.1 % (0-10); NRBC Flagged by Analyzer 0 % (0-5); Neutrophil # 8.24 X10^3/uL (2.7-7.7); Neutrophil % 79.1 % (47-70); Platelet Count 406 K/mm3 (150-450); RBC Distribution Width CV 11.9 % (11.6-14.6); RBC Distribution Width SD 38.2 fl (35.1-43.9); Red Blood Count 3.78 M/mm3 (4.2-5.4); White Blood Count 10.4 K/mm3 (4.4-11.0)
[2020-07-15 19:40] LABS: ALB/GLOB Ratio 0.9 RATIO (0.9-2.4); AST(SGOT) 10 U/L (15-37); Alanine Aminotransfer ALT/SGPT 18 U/L (13-56); Albumin, Serum 3.2 g/dL (3.2-5.0); Alkaline Phosphatase 145 U/L (45-117); Anion Gap 8 (5-15); BUN 5 mg/dL (7-18); BUN/Creat Ratio 4.8 RATIO (10-20); Calcium,Total 8.6 mg/dL (8.5-10.1); Chloride 98 mmol/L (98-107); Creatinine, Serum 1.04 mg/dL (0.55-1.02); EST Glomerular Filtration Rate 56 mL/min (>60); Est Glom Filt Rate - Afr Amer 68 mL/min (>60); Estimated Creatinine Clearance 40.95 ml/min; Globulin 3.5 g/dL (2.2-4.2); Glucose 306 mg/dL (74-106); Potassium 3.1 mmol/L (3.5-5.1); Protein, Total 6.7 g/dL (6.4-8.2); Sodium Level 135 mmol/L (136-145)
--- NOTE | 2020-07-15 20:14 | ED.DCSUM_ITS ---
- ER Visit Summary Date of Service: 07/15/20 Chief Complaint: Shortness of breath. History of Present Illness: The patient is a 69 F with shortness of breath. Patient states that started 3 hours prior to arrival. She states she feels very short of breath with a nonproductive cough. She has had nausea with no vomiting. She denies fever. Per EMS she was 84% on 4 L at home. She has a history of COPD, diabetes, hypertension. She denies chest pain. Physical Examination: Blood pressure 148/74, temperature 97.9, heart rate 87, respiratory rate 38. 99% on BiPAP HEENT exam is unremarkable. Neck is supple. Lungs are diminished and wheezing bilaterally. Heart is regular rate and rhythm. Abdomen is soft nontender nondistended. Extremities symmetric edema Skin is warm and dry. No focal neurologic deficit. Remainder of exam is unremarkable. Emergency Department Course and Treatment: Patient is tachypneic with retractions on arrival. She was started on BiPAP with improvement. Chest x-ray shows findings consistent with Covid pneumonia. EKG is sinus tachycardia rate of 129 with artifact, no acute ischemic changes. CBC shows hemoglobin 10.6. Chemistries show sodium 135, potassium 3.1, glucose 306, creatinine 1.04. Troponin 0.027. Covid negative. Patient was given Lasix IV. She had improvement at with BiPAP. Discussed with the hospitalist for admission. Disposition: Admission Impression: Dyspnea, fluid overload This note was generated with [employer] dictation software. It may contain incorrect words, spelling, and punctuation that were not noted in review of the chart p rior to signing ED Disposition - Plan for ED Patient: Referrals: Billy Madera MD [Primary Care Provider] -
--- NOTE | 2020-07-15 21:42 | PCM.HP.STD ---
Problem List (1) Diabetes mellitus with hyperglycemia Status: Acute (2) Asthma with COPD Status: Acute Comment: FEV1 65% (3) Obesity Status: Chronic Qualifiers: (4) GERD (gastroesophageal reflux disease) Status: Chronic (5) Generalized anxiety disorder Status: Chronic (6) COPD exacerbation Status: Acute (7) Hypertension Status: Chronic Qualifiers: (8) Smoking Status: Chronic (9) Hypothyroidism Status: Chronic Qualifiers: (10) Depression Status: Chronic (11) [place] esophagus Status: Chronic Qualifiers: (12) Postprandial bloating Status: Chronic History of Present Illness Date of Admission: 07/15/20 Chief Complaint: shortness of breath The patient is a 69 year old with a complex past medical history including COPD, diabetes, generalized anxiety disorder who presents to the hospital with shortness of breath that is acute. Per patient she has had creased difficulty breathing over the past 2 days with became markedly worse over the past 3 hours. Upon arrival patient was tachypneic with respiratory rates in the 30s along with blood pressures that were markedly elevated. In the emergency room she was placed on BiPAP machine and given breathing treatments. Covid test was negative and chest x-ray reveals some fluid overload. Initiating therapy with diuresis was being started in the emergency room with the patient is maintaining a pulse oxygen saturation 98% with a normal heart rate but continues to be hypertensive. She will be admitted overnight to the intensive care unit for further monitoring and will anticipate stepdown in the morning. 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 Per ANGELO @ [facility] 12/08/2018 COPD (chronic obstructive pulmonary disease) (Chronic) J44.9 Depression (Chronic) F32.9 Anxiety (Chronic) F41.9 Heart disease I51.9 History of constipation Z87.19 Lung disease J98.4 SOB (shortness of breath) R06.02 Allergies amoxicillin [Amoxicillin] Allergy (Intermediate, Verified 07/15/20 18:39) Rash gabapentin [From Neurontin] Allergy (Verified 07/15/20 18:39) Shortness of breath levofloxacin [From Levaquin] Allergy (Verified 07/15/20 18:39) Hives is allergic to the red dye in the pill form, states she is fine with the iv form. pseudoephedrine HCl [From Sudafed] Allergy (Verified 07/15/20 18:39) Shortness of breath red dye Allergy (Verified 07/15/20 18:39) Hives codeine Adverse Reaction (Verified 07/15/20 18:39) HEADACHE Home Medications: Ambulatory Orders Medication Instructions Recorded aspirin 81 mg tablet,delayed 81 mg PO DAILY #90 04/20/19 release atorvastatin 80 mg tablet 80 mg PO QHS #90 tab 11/17/19 clopidogrel 75 mg tablet 75 mg PO DAILY #90 tab 11/21/19 losartan 25 mg tablet 25 mg PO DAILY #90 tab 12/01/19 nitroglycerin 0.4 mg sublingual 0.4 mg SUBLINGUAL ONCE #25 tab 12/01/19 tablet pantoprazole 40 mg tablet,delayed 40 mg PO DAILY #60 tab 01/17/20 release risperidone 1 mg tablet 1.5 mg PO QHS 90 Days #135 tab 01/17/20 insulin aspart U-100 100 unit/mL See Rx Instructions SC TID #15 ml 02/22/20 (3 mL) subcutaneous pen Acetaminophen 1,000 mg PO TID PRN #1 tab 03/16/20 Ibuprofen 400 mg PO TID PRN #1 tab 03/16/20 bisacodyl 5 mg tablet,delayed 5 mg PO ONCE PRN #14 tab 05/09/20 release metformin 500 mg tablet,extended 1,000 mg PO QPM #180 tab 05/09/20 release 24 hr insulin glargine 100 unit/mL (3 46 unit SC QPM 05/17/20 mL) subcutaneous pen insulin lispro 100 unit/mL 15 unit SC TID #60 ml 05/17/20 subcutaneous pen indomethacin 50 mg capsule 50 mg PO BID #10 cap 06/12/20 alprazolam 0.5 mg tablet 0.5 mg PO DAILY PRN #30 tab 07/08/20 ipratropium 0.5 mg-albuterol 3 mg 3 ml INHALATION Q4H PRN PRN #180 ml 07/11/20 (2.5 mg base)/3 mL nebulization soln albuterol sulfate 90 mcg/actuation 2 puff INHALATION Q6H PRN #18 g 07/12/20 aerosol inhaler metoprolol tartrate 25 mg tablet 12.5 mg PO BID #90 tab 07/13/20 Citalopram [Celexa] 40 mg PO QHS 07/15/20 Surgical History: Surgical History (Last Reviewed 07/12/20 @ 10:34 by July Mak) History of cholecystectomy Z90.49 Stented coronary artery Onset Date: 12/28/18 Z95.5 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 Successful PTCA/RACHEL mid LAD with a 2.5 x 20 Promus Synergy, post dilated with a 2.5 x 12 NC Balloon after DIAG stent deployed; 75%-->0%, no dissection. 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 Smoking Status: Former smoker - *Family History Sibling Family History: Family History (Last Reviewed 07/12/20 @ 10:34 by July Mak) Brother Heart disease Mother Colon cancer Heart disease History Items: Heart Disease - Brother of massive PA at age 50 Maternal Family History: Family History (Last Reviewed 07/12/20 @ 10:34 by July Mak) Brother Heart disease Mother Colon cancer Heart disease History Items: Heart Disease Paternal Family History: Family History (Last Reviewed 07/12/20 @ 10:34 by July Mak) Brother Heart disease Mother Colon cancer Heart disease History Items: Pulmonary Disease Review of Systems Constitutional: Denies: Chills, Fever, Weight Change HEENT: Denies: Head Aches, Sinus Congestion, Sinus Drainage Cardiovascular: Denies: Chest Pain, Palpitations Respiratory: Reports: Shortness of breath at rest. Denies: Cough, Sputum production Gastrointestinal: Denies: Abdominal Pain, Nausea, Vomiting Genitourinary: Denies: Dysuria Musculoskeletal: Denies: Joint Pain, Joint Tenderness Skin: Denies: Rash, Wounds Neurological: Denies: Numbness, Tingling, Focal weakness Psychiatric: Reports: Anxiety. Denies: Depression, Homicidal Ideations, Suicidal Ideations Hematologic/ Lymphatic: Denies: Easy Bruising, Easy Bleeding VTE Information - Inpt Only VTE Present on Admission: No VTE Mechan Device Prophylaxis: None VTE Pharm Prophylaxis ordered?: Yes - Physical Exam Vitals/I&O's: Vital Signs Temp Pulse Resp BP Pulse Ox 97.9 F 86 34 H 136/76 H 100 07/15/20 18:37 07/15/20 20:00 07/15/20 20:00 07/15/20 20:00 07/15/20 20:00 Oxygen Flow Rate (L/min) 15 Oxygen Delivery Method Bi-pap Weight: 218 lb 4.122 oz Body Mass Index (BMI) 39.9 Finger Stick Blood Glucose 552 General: Alert, Oriented x3, Cooperative HEENT: Atraumatic, Normocephalic Neck: Supple Lungs: No rhonchi, No wheeze, No rales, Diminished, Short of Breath, Tachypneic Cardiovascular: Regular rate, Normal S1, Normal S2, No murmurs Abdomen: Bowel Sounds Present, Soft, Non Tender, Obese Extremities: No edema Skin: No rashes Musculoskeletal: No Tenderness to Palpation of Joints or Extremities Neurological: Neuro grossly intact Psych/Mental Status: Normal Affect, Appropriate Microbiology Past 72 Hours 07/15/20 19:27 Mucosa - Nose SARS-CoV-2 Antigen (Rapid) - Final Laboratory Results 07/15/20 19:00: WBC 10.4, RBC 3.78 L, Hgb 10.6 L, Hct 33.3 L, MCV 88.1, MCH 28.0, MCHC 31.8 L, RDW Std Deviation 38.2, RDW Coeff of [place] 11.9, Plt Count 406, MPV 10.9, Immature Gran % (Auto) 0.800, Neut % (Auto) 79.1 H, Lymph % (Auto) 12.9 L, [place] % (Auto) 5.1, Eos % (Auto) 1.1, Baso % (Auto) 1.0, Absolute Neuts (auto) 8.2 H, Absolute Lymphs (auto) 1.34, Nucleated RBC % 0 07/15/20 19:00: Sodium 135 L, Potassium 3.1 L, Chloride 98, Carbon Dioxide 29.0, Anion Gap 8, BUN 5 L, Creatinine 1.04 H, Estim Creat Clear Calc 40.95, Est GFR (MDRD) Af Amer 68, Est GFR (MDRD) Non-Af 56 L, BUN/Creatinine Ratio 4.8 L, Glucose 306 H, Calcium 8.6, Total Bilirubin 0.30, AST 10 L, ALT 18, Alkaline Phosphatase 145 H, Troponin I 0.027, Total Protein 6.7, Albumin 3.2, Globulin 3.5, Albumin/Globulin Ratio 0.9 07/15/20 19:00: B-Natriuretic Peptide Pending Assessment/Plan All Active Problems (Last Reviewed 07/12/20 @ 10:34 by July Mak) Chest pain (Acute) Diabetes mellitus with hyperglycemia (Acute) Asthma with COPD (Acute) Acute bronchitis, unspecified (Acute) Acute respiratory failure with hypoxia and hypercapnia (Acute) COPD exacerbation (Acute) Hyperglycemia (Acute) Chronic Problems (Last Reviewed 07/12/20 @ 10:34 by July Mak) Obesity (Chronic) GERD (gastroesophageal reflux disease) (Chronic) Type 2 diabetes mellitus (Chronic) Generalized anxiety disorder (Chronic) Diabetes (Chronic) Dermatomyositis (Chronic) COPD with exacerbation (Chronic) Hypertension (Chronic) 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 Per ANGELO @ [facility] 12/08/2018 Smoking (Chronic) Chronic respiratory failure (Chronic) On home oxygen Muscular dystrophy (Chronic) Hyponatremia (Chronic) Hypothyroidism (Chronic) COPD (chronic obstructive pulmonary disease) (Chronic) Depression (Chronic) [place] esophagus (Chronic) Postprandial bloating (Chronic) Anxiety (Chronic) 1. Impending respiratory failure secondary to COPD history and likely fluid volume overload of the lungs possibly secondary to congestive heart failure?Covid negative admit patient to the ICU overnight continue BiPAP therapy with oxygen support. 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 Diabetes?continue home medications 3. Generalized anxiety disorder?continue anxiety medicine 4. Hypertension?continue home medications and add as needed hydralazine for blood pressure greater than 160/100 5. Smoking cessation encouraged 6. Depression continue home medication stable 7. DVT prophylaxis?low molecular weight heparin Inpatient E&M: 34691 Init Hosp L3
[2020-07-15] MEDS: Furosemide 40 MG/4 ML Vial IV (21:52)
[2020-07-16] VITALS (29 sets, daily range): BP systolic 134–182; BP diastolic 68–130; PULSE 72–87; RESP 12–38; TEMP 36.2–37.1; O2SAT 94–100; BMI 37.8
[2020-07-16 02:46] LABS: Bedside Glucose 238 mg/dL (70-110)
[2020-07-16] MEDS: Potassium Chloride 10mEq/100mL 10 MEQ/100 ML IV.SOLN. 100 MEQ IV BOLUS ×4 (04:33→10:11)
[2020-07-16] MEDS: Ipratropium/Albuterol Sulfate 3 ML AMPUL.NEB INHALATION ×5 (05:10→23:55)
[2020-07-16] MEDS: RisperiDONE 1 MG Tablet 1.5 MG PO ×2 (06:18→20:37)
[2020-07-16] MEDS: Metoprolol Tartrate 25 MG Tablet 12.5 MG PO ×3 (06:19→20:38)
[2020-07-16] MEDS: Bisacodyl 5 MG Tablet PO (06:24)
[2020-07-16] MEDS: Insulin Lispro 100 UNIT/ML INSULN.PEN SC ×4 (08:22→20:38)
[2020-07-16] MEDS: Enoxaparin 40 MG/0.4 ML Syringe SC (08:23)
[2020-07-16] MEDS: Indomethacin 25 MG Capsule 50 MG PO ×2 (08:24→16:56)
[2020-07-16] MEDS: Aspirin E.C. 81 MG Tablet PO (08:24)
[2020-07-16] MEDS: Clopidogrel Bisulfate 75 MG Tablet PO (08:24)
[2020-07-16] MEDS: Pantoprazole Sodium 40 MG Tablet PO (08:24)
[2020-07-16] MEDS: Losartan Potassium 25 MG Tablet PO (08:25)
--- NOTE | 2020-07-16 08:53 | PCM.CON.CC ---
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 use: with alf use Diabetes mellitus complication status: with hyperglycemia Qualified Code(s): E11.65 - Type 2 diabetes mellitus with hyperglycemia; Z79.4 - long-term (current) use of insulin (8) Dermatomyositis Status: Chronic (9) Hypertension Status: Chronic Qualifiers: (10) Chronic respiratory failure Status: Chronic Qualifiers: Respiratory failure complication: hypoxia Qualified Code(s): J96.11 - Chronic respiratory failure with hypoxia Comment: On home oxygen (11) Muscular dystrophy Status: Chronic (12) Hypothyroidism Status: Chronic Qualifiers: (13) Depression Status: Chronic (14) [place] esophagus Status: Chronic Qualifiers: Reason for Consult Date of Consultation: 07/16/20 Reason for Consultation: Respiratory failure History of Present Illness: The patient is a 69 year old F with past medical history listed below and well-known to me from the outpatient office, who presented to [facility] on 07/15/2020 secondary to acute onset of shortness of breath. Patient reportedly developed a nonproductive cough and significant shortness of breath approximately 3 hours prior to arrival. On EMSs arrival, patient was noted to be 84% on her baseline 4 L nasal cannula. Patient does have a history of COPD, asthma, diabetes and hypertension. Patient did not reported any chest pain at that time. On arrival to the emergency department, patient was hemodynamically stable, but tachypneic on BiPAP therapy. Patient reportedly had retractions at that time. EKG showed sinus tachycardia with a rate of 129 bpm and hemoglobin was at her baseline at 10.6. Potassium was slightly low at 3.1 and troponin was minimally elevated. Covid testing was negative. Patient was given Lasix IV and BiPAP and admitted to the intensive care unit. On my arrival this morning, patient was feeling back to her baseline. Patient denied any current chest pain, nominal pain, nausea or vomiting. Patient was able to be taken off of BiPAP to 6 L. Patient was rapidly decreased down to her baseline of 4 L nasal cannula. Patient is unclear on the etiology of her acute decompensation. Patient denies any GI symptoms. No Covid exposures been reported. Review of systems otherwise negative from a constitutional, HEENT, respiratory, cardiovascular, GI, genitourinary, musculoskeletal, skin, neurologic, psychiatric and hematologic system unless stated above. 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 Per DJN @ [employer] 12/08/2018 COPD (chronic obstructive pulmonary disease) (Chronic) J44.9 Depression (Chronic) F32.9 Anxiety (Chronic) F41.9 Heart disease I51.9 History of constipation Z87.19 Lung disease J98.4 SOB (shortness of breath) R06.02 Allergies amoxicillin [Amoxicillin] Allergy (Intermediate, Verified 07/15/20 18:39) Rash gabapentin [From Neurontin] Allergy (Verified 07/15/20 18:39) Shortness of breath levofloxacin [From Levaquin] Allergy (Verified 07/15/20 18:39) Hives is allergic to the red dye in the pill form, states she is fine with the iv form. pseudoephedrine HCl [From Sudafed] Allergy (Verified 07/15/20 18:39) Shortness of breath red dye Allergy (Verified 07/15/20 18:39) Hives codeine Adverse Reaction (Verified 07/15/20 18:39) HEADACHE Home Medications: Ambulatory Orders Medication Instructions Recorded aspirin 81 mg tablet,delayed 81 mg PO DAILY #90 tablet. 04/20/19 release atorvastatin 80 mg tablet 80 mg PO QHS #90 tab 11/17/19 clopidogrel 75 mg tablet 75 mg PO DAILY #90 tab 11/21/19 losartan 25 mg tablet 25 mg PO DAILY #90 tab 12/01/19 nitroglycerin 0.4 mg sublingual 0.4 mg SUBLINGUAL ONCE #25 tab 12/01/19 tablet pantoprazole 40 mg tablet,delayed 40 mg PO DAILY #60 tab 01/17/20 release risperidone 1 mg tablet 1.5 mg PO QHS 90 Days #135 tab 01/17/20 Acetaminophen 1,000 mg PO TID PRN #1 tab 03/16/20 Ibuprofen 400 mg PO TID PRN #1 tab 03/16/20 bisacodyl 5 mg tablet,delayed 5 mg PO ONCE PRN #14 tab 05/09/20 release metformin 500 mg tablet,extended 1,000 mg PO QPM #180 tab 05/09/20 release 24 hr insulin glargine 100 unit/mL (3 46 unit SC QPM 05/17/20 mL) subcutaneous pen insulin lispro 100 unit/mL 15 unit SC TID #60 ml 05/17/20 subcutaneous pen alprazolam 0.5 mg tablet 0.5 mg PO DAILY PRN #30 tab 07/08/20 ipratropium 0.5 mg-albuterol 3 mg 3 ml INHALATION Q4H PRN PRN #180 ml 07/11/20 (2.5 mg base)/3 mL nebulization soln albuterol sulfate 90 mcg/actuation 2 puff INHALATION Q6H PRN #18 g 07/12/20 aerosol inhaler metoprolol tartrate 25 mg tablet 12.5 mg PO BID #90 tab 07/13/20 Citalopram [Celexa] 40 mg PO QHS 07/15/20 Surgical History: Surgical History (Last Reviewed 07/12/20 @ 10:34 by July Mak) History of cholecystectomy Z90.49 Stented coronary artery Onset Date: 12/28/18 Z95.5 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 Successful PTCA/RACHEL mid LAD with a 2.5 x 20 Promus Synergy, post dilated with a 2.5 x 12 NC Balloon after DIAG stent deployed; 75%-->0%, no dissection. 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 Smoking Status: Former smoker - *Family History Sibling Family History: Family History (Last Reviewed 07/12/20 @ 10:34 by July Mak) Brother Heart disease Mother Colon cancer Heart disease History Items: Heart Disease - Brother of massive [place] at age 50 Maternal Family History: Family History (Last Reviewed 07/12/20 @ 10:34 by July Mak) Brother Heart disease Mother Colon cancer Heart disease History Items: Heart Disease Paternal Family History: Family History (Last Reviewed 07/12/20 @ 10:34 by July Mak) Brother Heart disease Mother Colon cancer Heart disease History Items: Pulmonary Disease Review of Systems Comment: See HPI Patient Problems: Active and Suspected Problems (Last Reviewed 07/12/20 @ 10:34 by July Mak) Diabetes mellitus with hyperglycemia (Acute) Asthma with COPD (Acute) FEV1 65% COPD exacerbation (Acute) Objective: All imaging was personally reviewed. Chest x-ray shows bilateral infiltrates, but more consistent with flash pulmonary edema than Covid pneumonia in my opinion. Patient's last echocardiogram was in December 2018 showing an EF of 65% with stage I diastolic dysfunction and an elevated pulmonary artery pressure of 39 mmHg. No significant valvular abnormalities were reported. Patient's most recent pulmonary function test was completed in June and showed a partially reversible obstructive ventilatory defect in a pattern consistent with COPD/asthma (FVC 70%, FEV1 64%, TLC 114%, RV 177%, DLCO 60%) - Physical Exam Vitals/I&O's: Vital Signs Temp Pulse Resp BP Pulse Ox 36.8 C 85 17 150/89 H 99 07/16/20 04:00 07/16/20 06:19 07/16/20 06:00 07/16/20 06:19 07/16/20 05:05 Oxygen Flow Rate (L/min) 4 Oxygen Delivery Method Nasal Cannula Weight: 93.7 kg Body Mass Index (BMI) 37.8 Finger Stick Blood Glucose 552 Intake and Output for Last 24 Hours 07/14/20 07/15/20 07/16/20 23:59 23:59 23:59 Intake Total 380 / 380 Output Total 550 / 550 Balance -170 / -170 General: Alert, Oriented x3, Cooperative, No apparent distress - On BiPAP, - - Obese. HEENT: Atraumatic, PERRLA, EOMI, Normocephalic, - - No scleral icterus or injection noted Oral: Moist Mucosa, No Gingival or Mucosal Lesions/ Ulcerations Neck: Supple, No JVD, No Nodes, Trachea Midline Lungs: No rhonchi, No wheeze, No rales, Diminished, - - Somewhat coarse breath sounds on BiPAP Cardiovascular: Regular rate, Regular Rhythm, Normal S1, Normal S2, No murmurs, No rub noted, No Gallop Abdomen: Bowel Sounds Present, Soft, Non Tender, Non-Distended, Obese Extremities: No clubbing, No cyanosis, Edema - Trace lower extremity, - - Right arm immobilized Skin: No rashes, No breakdown Musculoskeletal: No Tenderness to Palpation of Joints or Extremities Lymphatic: No Cervical, Supraclavicular, or Inguinal Adenopathy Neurological: Cranial nerves II-XII grossly intact, Neuro grossly intact, Motor Exam 5/5 strength throughout Psych/Mental Status: Alert and oriented to time, place, person, mood and affect Microbiology Past 72 Hours 07/15/20 19:27 Mucosa - Nose SARS-CoV-2 Antigen (Rapid) - Final Laboratory Results 07/15/20 19:00: WBC 10.4, RBC 3.78 L, Hgb 10.6 L, Hct 33.3 L, MCV 88.1, MCH 28.0, MCHC 31.8 L, RDW Std Deviation 38.2, RDW Coeff of Malcom 11.9, Plt Count 406, MPV 10.9, Immature Gran % (Auto) 0.800, Neut % (Auto) 79.1 H, Lymph % (Auto) 12.9 L, [place] % (Auto) 5.1, Eos % (Auto) 1.1, Baso % (Auto) 1.0, Absolute Neuts (auto) 8.2 H, Absolute Lymphs (auto) 1.34, Nucleated RBC % 0 07/15/20 19:00: Sodium 135 L, Potassium 3.1 L, Chloride 98, Carbon Dioxide 29.0, Anion Gap 8, BUN 5 L, Creatinine 1.04 H, Estim Creat Clear Calc 40.95, Est GFR (MDRD) Af Amer 68, Est GFR (MDRD) Non-Af 56 L, BUN/Creatinine Ratio 4.8 L, Glucose 306 H, Calcium 8.6, Total Bilirubin 0.30, AST 10 L, ALT 18, Alkaline Phosphatase 145 H, Troponin I 0.027, Total Protein 6.7, Albumin 3.2, Globulin 3.5, Albumin/Globulin Ratio 0.9 07/15/20 19:00: B-Natriuretic Peptide Pending 07/16/20 02:42: POC Glucose 238 H 07/16/20 04:00: B-Natriuretic Peptide Pending Current Medications Acetaminophen (Acetaminophen 500 Mg Tablet) 1,000 mg PO TID PRN PRN PRN Reason: Pain 1-10 or Fever Albuterol/Ipratropium (Ipratropium/Albuterol Sulfate 3 Ml Ampul.Neb) 3 ml INHALATION Q4H.RT [facility] Last Admin: 07/16/20 05:10 Dose: 3 ml Documented by: Alprazolam (Alprazolam 0.5 Mg Tablet) 0.5 mg PO DAILY PRN PRN PRN Reason: ANXIETY Aspirin (Aspirin E.C. 81 Mg Tablet) 81 mg PO DAILY [facility] Last Admin: 07/16/20 08:24 Dose: 81 mg Documented by: Atorvastatin Calcium (Atorvastatin Calcium 80 Mg Tablet) 80 mg PO QHS [facility] Citalopram Hydrobromide (Citalopram 40 Mg Tablet) 40 mg PO QHS [facility] Clopidogrel Bisulfate (Clopidogrel Bisulfate 75 Mg Tablet) 75 mg PO DAILY [facility] Last Admin: 07/16/20 08:24 Dose: 75 mg Documented by: Enoxaparin Sodium (Enoxaparin 40 Mg/0.4 Ml Syringe) 40 mg SC DAILY [facility] Last Admin: 07/16/20 08:23 Dose: 40 mg Documented by: Furosemide (Furosemide 40 Mg/4 Ml Vial) 40 mg IV BID@1000,1800 [facility] Hydralazine HCl (Hydralazine 20 Mg/Ml Vial) 20 mg IV Q6H PRN PRN PRN Reason: Hypertensive Emergency Levofloxacin (Levaquin Iv) 500 mg in 100 mls @ 100 mls/hr IV Q24 [facility] Stop: 07/16/20 10:59 Potassium Chloride () 10 meq in 100 mls @ 100 mls/hr IV BOLUS Q1H [facility] Stop: 07/16/20 08:59 Last Infusion: 07/16/20 08:11 Dose: Infused Documented by: Sodium Chloride () 250 mls @ 15 mls/hr IV .[id number] PRN PRN Reason: Saline Flush Sodium Chloride () 250 mls @ 15 mls/hr IV .[id number] PRN PRN Reason: Additional IVPB Infusion Indomethacin (Indomethacin 25 Mg Capsule) 50 mg PO BIDCM [facility] Last Admin: 07/16/20 08:24 Dose: 50 mg Documented by: Insulin Glargine (Insulin Glargine 100 Units/Ml Pen) 46 units SC QPM [facility] Insulin Human Lispro (Insulin Lispro 100 Unit/Ml Insuln.Pen) 0 unit SC ACHS [facility]; Protocol Last Admin: 07/16/20 08:22 Dose: 9 unit Documented by: Losartan Potassium (Losartan Potassium 25 Mg Tablet) 25 mg PO DAILY [facility] Last Admin: 07/16/20 08:25 Dose: 25 mg Documented by: Metformin HCl (Metformin (Xr) 500 Mg Tablet) 1,000 mg PO QPM [facility] Methylprednisolone (Methylprednisolone 40 Mg/Ml Vial) 40 mg IV Q8 [facility] Last Admin: 07/16/20 04:29 Dose: 40 mg Documented by: Metoprolol Tartrate (Metoprolol Tartrate 25 Mg Tablet) 12.5 mg PO BID [facility] Last Admin: 07/16/20 06:19 Dose: 12.5 mg Documented by: Pantoprazole Sodium (Pantoprazole Sodium 40 Mg Tablet) 40 mg PO DAILY [facility] Last Admin: 07/16/20 08:24 Dose: 40 mg Documented by: Risperidone (Risperidone 1 Mg Tablet) 1.5 mg PO QHS [facility] Last Admin: 07/16/20 06:18 Dose: 1.5 mg Documented by: Sodium Chloride (0.9% Saline Lock 10 Ml Syringe) 10 - 40 ml IV UD PRN PRN Reason: SALINE FLUSH Clinical Impression(s) from Imaging Studies Chest X-Ray 07/15/20 18:34 IMPRESSION: Findings suspicious for Covid 19 pneumonia. Clinical correlation is recommended Electronically Signed: Marco Chong MD at 19:59 EST , Service support , Assessment/Plan Active and Suspected Problems (Last Reviewed 07/12/20 @ 10:34 by July Mak) Diabetes mellitus with hyperglycemia (Acute) Asthma with COPD (Acute) FEV1 65% COPD exacerbation (Acute) RECOMMENDATIONS: 1. Likely okay to discontinue antibiotics 2. Consider initiation of low-dose Lasix therapy 3. Walking oximetry prior to discharge 4. Would not recommend a steroid burst, but okay to continue with baseline bronchodilators IMPRESSIONS: 1. Acute on chronic hypoxic respiratory failure Unclear etiology at this time. Patient does have COPD/asthma overlap syndrome at baseline. However, given the severity and rapid onset with rapid recovery, this is an unlikely etiology for this hospitalization. Patient may have had an element of flash pulmonary edema, but blood pressures were well controlled on her arrival. Patient does have a history of not taking her medications as prescribed. Doubt patient is an acute COPD exacerbation, so Levaquin and steroids can be discontinued from my perspective. Patient should be continued on bronchodilators. Patient should have a walking oximetry prior to discharge. However, if patient is doing well, rapid discharge with Lasix is a reasonable approach. Patient does have a pulse oximeter at home to monitor saturations. 2. Right arm fracture Patient currently awaiting surgical intervention. Patient would benefit from using local block given her lung disease. Pain is well controlled at this time. Okay to continue with orthopedic timetable from my perspective. 3. Diabetes mellitus/CARLO/hypertension/depression/history of tobacco use/obesity Complicates care, management, prognosis and recovery. Likely okay to continue with home medications for diabetes. Blood sugars may be elevated secondary to Solu-Medrol. This should only be transient and does not indicate a need for change in diabetic medications. Okay to continue with blood pressure medications, but patient should be monitoring these closely as flash pulmonary edema secondary to hypertensive urgency would be a consideration. Patient did quit smoking 7 months ago, which should help her overall condition Inpatient E&M: 66749 Init Hosp L3
[2020-07-16 09:09] LABS: Absolute Lymphocyte Count 0.68 X10^3/uL (0.83-4.51); Absolute Neutrophil Count 9.5 X10^3/uL (2.0-7.7); Basophil# 0.02 X10^3/uL; Basophil% 0.2 % (0-1); Eosinophil# 0.01 X10^3/uL; Eosinophils% 0.1 % (0-5); Hematocrit 34.1 % (37-47); Hemoglobin 10.6 g/dL (12.0-15.0); Lymphocyte # 0.68 X10^3/ul (4.0); Lymphocyte % 6.5 % (19-41); Mean Corp Hgb Conc 31.1 g/dL (32-36); Mean Corpuscular Hgb 27.4 pg (27.0-32.0); Mean Corpuscular Volume 88.1 fL (81-99); Mean Platelet Vol. 10.8 fl (6.2-12.0); Monocyte# 0.15 X10^3/uL; Monocyte% 1.4 % (0-10); NRBC Flagged by Analyzer 0 % (0-5); Neutrophil # 9.48 X10^3/uL (2.7-7.7); Neutrophil % 91.1 % (47-70); Platelet Count 408 K/mm3 (150-450); RBC Distribution Width CV 11.9 % (11.6-14.6); RBC Distribution Width SD 38.4 fl (35.1-43.9); Red Blood Count 3.87 M/mm3 (4.2-5.4); White Blood Count 10.4 K/mm3 (4.4-11.0)
[2020-07-16 09:21] LABS: Anion Gap 8 (5-15); BUN 6 mg/dL (7-18); BUN/Creat Ratio 7.7 RATIO (10-20); Calcium,Total 9.2 mg/dL (8.5-10.1); Chloride 99 mmol/L (98-107); Creatinine, Serum 0.78 mg/dL (0.55-1.02); EST Glomerular Filtration Rate 77 mL/min (>60); Est Glom Filt Rate - Afr Amer 94 mL/min (>60); Estimated Creatinine Clearance 42.59 ml/min; Glucose 324 mg/dL (74-106); Potassium 3.7 mmol/L (3.5-5.1); Sodium Level 135 mmol/L (136-145)
[2020-07-16 10:25] LABS: Bedside Glucose 298 mg/dL (70-110)
[2020-07-16 11:25] LABS: BNP,B-Type NATRIURETIC PEPTIDE 263.6 pg/mL (0-100)
[2020-07-16 11:28] LABS: BNP,B-Type NATRIURETIC PEPTIDE 280.4 pg/mL (0-100)
--- NOTE | 2020-07-16 11:48 | PCM.PN.HOSP ---
Patient Problems: Active and Suspected Problems (Last Reviewed 07/12/20 @ 10:34 by July Mak) Diabetes mellitus with hyperglycemia (Acute) Asthma with COPD (Acute) FEV1 65% COPD exacerbation (Acute) Subjective: Feeling better today than she did last night. She is back down to her chronic 4 L nasal cannula Vitals/I&O's: Vital Signs Temp Pulse Resp BP Pulse Ox 98.2 F 81 24 H 172/96 H 98 07/16/20 08:00 07/16/20 11:18 07/16/20 11:05 07/16/20 09:00 07/16/20 11:05 Oxygen Flow Rate (L/min) 4 Oxygen Delivery Method Nasal Cannula Weight: 206 lb 9.17 oz Body Mass Index (BMI) 37.8 Finger Stick Blood Glucose 552 Intake and Output for Last 24 Hours 07/14/20 07/15/20 07/16/20 23:59 23:59 23:59 Intake Total 800 / 800 Output Total 950 / 950 Balance -150 / -150 General: Alert, Oriented x3, Cooperative, No apparent distress HEENT: Atraumatic, PERRLA, EOMI, Normocephalic Oral: Moist Mucosa Neck: Supple, No JVD Lungs: Clear to auscultation, Normal air movement, No rhonchi, No wheeze, No rales, Diminished Cardiovascular: Regular rate, Regular Rhythm, Normal S1, Normal S2, No murmurs Abdomen: Soft, Non Tender, Non-Distended, No Hepato-splenomegaly Extremities: No edema, Capillary Refill Less than 3 Seconds Skin: No rashes, No breakdown Neurological: Neuro grossly intact, Sensory exam intact to light touch and pain Psych/Mental Status: Normal Affect, Appropriate Microbiology Past 72 Hours 07/15/20 19:27 Mucosa - Nose SARS-CoV-2 Antigen (Rapid) - Final Laboratory Results 07/15/20 19:00: WBC 10.4, RBC 3.78 L, Hgb 10.6 L, Hct 33.3 L, MCV 88.1, MCH 28.0, MCHC 31.8 L, RDW Std Deviation 38.2, RDW Coeff of [place] 11.9, Plt Count 406, MPV 10.9, Immature Gran % (Auto) 0.800, Neut % (Auto) 79.1 H, Lymph % (Auto) 12.9 L, [place] % (Auto) 5.1, Eos % (Auto) 1.1, Baso % (Auto) 1.0, Absolute Neuts (auto) 8.2 H, Absolute Lymphs (auto) 1.34, Nucleated RBC % 0 07/15/20 19:00: Sodium 135 L, Potassium 3.1 L, Chloride 98, Carbon Dioxide 29.0, Anion Gap 8, BUN 5 L, Creatinine 1.04 H, Estim Creat Clear Calc 40.95, Est GFR (MDRD) Af Amer 68, Est GFR (MDRD) Non-Af 56 L, BUN/Creatinine Ratio 4.8 L, Glucose 306 H, Calcium 8.6, Total Bilirubin 0.30, AST 10 L, ALT 18, Alkaline Phosphatase 145 H, Troponin I 0.027, Total Protein 6.7, Albumin 3.2, Globulin 3.5, Albumin/Globulin Ratio 0.9 07/15/20 19:00: B-Natriuretic Peptide 280.4 H 07/16/20 02:42: POC Glucose 238 H 07/16/20 04:00: B-Natriuretic Peptide 263.6 H 07/16/20 08:21: POC Glucose 298 H 07/16/20 08:55: WBC 10.4, RBC 3.87 L, Hgb 10.6 L, Hct 34.1 L, MCV 88.1, MCH 27.4, MCHC 31.1 L, RDW Std Deviation 38.4, RDW Coeff of [place] 11.9, Plt Count 408, MPV 10.8, Immature Gran % (Auto) 0.700, Neut % (Auto) 91.1 H, Lymph % (Auto) 6.5 L, [place] % (Auto) 1.4, Eos % (Auto) 0.1, Baso % (Auto) 0.2, Absolute Neuts (auto) 9.5 H, Absolute Lymphs (auto) 0.68 L, Nucleated RBC % 0 07/16/20 08:55: Sodium 135 L, Potassium 3.7, Chloride 99, Carbon Dioxide 28.0, Anion Gap 8, BUN 6 L, Creatinine 0.78, Estim Creat Clear Calc 42.59, Est GFR (MDRD) Af Amer 94, Est GFR (MDRD) Non-Af 77, BUN/Creatinine Ratio 7.7 L, Glucose 324 H, Calcium 9.2 Current Medications Acetaminophen (Acetaminophen 500 Mg Tablet) 1,000 mg PO TID PRN PRN PRN Reason: Pain 1-10 or Fever Albuterol/Ipratropium (Ipratropium/Albuterol Sulfate 3 Ml Ampul.Neb) 3 ml INHALATION Q4H.RT [facility] Last Admin: 07/16/20 11:05 Dose: 3 ml Documented by: Alprazolam (Alprazolam 0.5 Mg Tablet) 0.5 mg PO DAILY PRN PRN PRN Reason: ANXIETY Aspirin (Aspirin E.C. 81 Mg Tablet) 81 mg PO DAILY [facility] Last Admin: 07/16/20 08:24 Dose: 81 mg Documented by: Atorvastatin Calcium (Atorvastatin Calcium 80 Mg Tablet) 80 mg PO QHS [facility] Citalopram Hydrobromide (Citalopram 40 Mg Tablet) 40 mg PO QHS [facility] Clopidogrel Bisulfate (Clopidogrel Bisulfate 75 Mg Tablet) 75 mg PO DAILY [facility] Last Admin: 07/16/20 08:24 Dose: 75 mg Documented by: Enoxaparin Sodium (Enoxaparin 40 Mg/0.4 Ml Syringe) 40 mg SC DAILY [facility] Last Admin: 07/16/20 08:23 Dose: 40 mg Documented by: Furosemide (Furosemide 40 Mg/4 Ml Vial) 40 mg IV BID@1000,1800 [facility] Hydralazine HCl (Hydralazine 20 Mg/Ml Vial) 20 mg IV Q6H PRN PRN PRN Reason: Hypertensive Emergency Sodium Chloride () 250 mls @ 15 mls/hr IV .[id number] PRN PRN Reason: Saline Flush Sodium Chloride () 250 mls @ 15 mls/hr IV .[id number] PRN PRN Reason: Additional IVPB Infusion Indomethacin (Indomethacin 25 Mg Capsule) 50 mg PO BIDCM [facility] Last Admin: 07/16/20 08:24 Dose: 50 mg Documented by: Insulin Glargine (Insulin Glargine 100 Units/Ml Pen) 46 units SC QPM [facility] Insulin Human Lispro (Insulin Lispro 100 Unit/Ml Insuln.Pen) 0 unit SC ACHS [facility]; Protocol Last Admin: 07/16/20 08:22 Dose: 9 unit Documented by: Losartan Potassium (Losartan Potassium 25 Mg Tablet) 25 mg PO DAILY [facility] Last Admin: 07/16/20 08:25 Dose: 25 mg Documented by: Metformin HCl (Metformin (Xr) 500 Mg Tablet) 1,000 mg PO QPM [facility] Methylprednisolone (Methylprednisolone 40 Mg/Ml Vial) 40 mg IV Q8 [facility] Last Admin: 07/16/20 04:29 Dose: 40 mg Documented by: Metoprolol Tartrate (Metoprolol Tartrate 25 Mg Tablet) 12.5 mg PO BID [facility] Last Admin: 07/16/20 06:19 Dose: 12.5 mg Documented by: Pantoprazole Sodium (Pantoprazole Sodium 40 Mg Tablet) 40 mg PO DAILY [facility] Last Admin: 07/16/20 08:24 Dose: 40 mg Documented by: Risperidone (Risperidone 1 Mg Tablet) 1.5 mg PO QHS [facility] Last Admin: 07/16/20 06:18 Dose: 1.5 mg Documented by: Sodium Chloride (0.9% Saline Lock 10 Ml Syringe) 10 - 40 ml IV UD PRN PRN Reason: SALINE FLUSH STROKE Vital Signs/Narrative: Vital Signs Temp Pulse Resp BP Pulse Ox 07/16/20 11:18 81 07/16/20 11:05 81 24 H 98 07/16/20 09:00 87 17 172/96 H 97 07/16/20 08:00 98.2 F 80 17 144/80 H 98 Medical Necessity - Tobacco Use Smoking Status: Former smoker Assessment/Plan All Active Problems (Last Reviewed 07/12/20 @ 10:34 by July Mak) Chest pain (Acute) Diabetes mellitus with hyperglycemia (Acute) Asthma with COPD (Acute) Acute bronchitis, unspecified (Acute) Acute respiratory failure with hypoxia and hypercapnia (Acute) COPD exacerbation (Acute) Hyperglycemia (Acute) 1. Acute on chronic hypoxic respiratory failure secondary to possibly flash pulmonary edema/COPD?asthma overlap syndrome -Echo from 1 year ago with a normal EF and stage I diastolic dysfunction with an elevated pulmonary artery pressure 39 mmHg -We will repeat an echo and continue with Lasix -We will obtain an ambulatory pulse ox prior to discharge and she will likely need to be on chronic diuretic therapy -Her rapid deterioration in rapid recovery is unlikely to be secondary to COPD. Continue with inhalers, but will discontinue steroids 2. CAD status post CABG/HTN/HLD -Pressure is stable, continue with her losartan and metoprolol -Continue with Lasix twice daily, and will plan to discharge on oral Lasix once stable -Continue with aspirin and Plavix 3. DM 2 -We will continue with her Metformin as well as home insulin -Accu-Cheks AC at bedtime 4. GERD -Stable -Continue with PPI 5. Anxiety/depression -Stable -Continue with Xanax, Celexa, risperidone DVT: Lovenox Inpatient E&M: 70147 Subs Hosp L2
[2020-07-16] MEDS: Furosemide 40 MG/4 ML Vial IV ×2 (11:51→16:56)
--- NOTE | 2020-07-16 11:56 | ECHOCS_ITS ---
Reason For Study: PHTN Procedure This was a 2D Doppler, Color Flow transthoracic echocardiogram. The study was technically difficult. Due to body habitus. Contrast injection was performed. Exam performed portable in ICU/CCU. Left Ventricle Normal LV size. Left ventricular systolic function is normal. The estimated ejection fraction is 60 %. Diastolic function is indeterminate. No regional wall motion abnormalities noted. Right Ventricle Normal RV size. Normal systolic function. Atria Normal left atrium. Normal right atrium. No doppler evidence for ASD. Mitral Valve There is no mitral annular calcification. Normal mitral valve. Mild (1+) mitral valve insufficiency. Tricuspid Valve Normal tricuspid valve. Mild tricuspid valve insufficiency. Right ventricular systolic pressure estimated to be 37 mmHg. Aortic Valve Normal aortic valve. Mild diffuse aortic valve thickening. Pulmonic Valve The pulmonic valve is not well visualized. Great Vessels Normal sized aortic root. Calcified aortic root. Pericardium/Pleural No pericardial effusion. Medication Diluted definity 3.0ml given slow IV push to enhance endocardial definition. MMode/2D Measurements & Calculations LVIDd: 5.0 cm IVSd: 1.2 cm Ao root diam: 2.4 cm LVIDs: 3.6 cm LVPWd: 1.2 cm RVDd: 3.8 cm FS: 28.8 % LAV(MOD-bp): 67.7 ml LA A4 area: 21.5 cm2 LA dimension(2D): 4.2 cm LAV(MOD-bp) Indexed: 35.0 ml/m2 LAV(MOD-sp2): 68.1 ml LAV(MOD-sp4): 67.6 ml RA A4 area: 15.5 cm2 Time Measurements MV dec time: 0.20 sec Doppler Measurements & Calculations MV E max eliseo: 68.8 cm/sec Lat Peak E' Eliseo: 9.8 cm/sec Med Peak E' Eliseo: 6.9 cm/sec MV A max eliseo: 83.9 cm/sec E/E' lat: 7.0 E/E' med: 10.0 MV E/A: 0.82 Ao V2 max: 144.0 cm/sec LV V1 max: 122.1 cm/sec PA V2 max: 113.5 cm/sec Ao max P.3 mmHg LV V1 max P.0 mmHg TR max eliseo: 268.3 cm/sec TR max P.8 mmHg Interpretation Summary The study was technically difficult. Contrast injection was performed. Left ventricular systolic function is normal. The estimated ejection fraction is 60 %. Mild (1+) mitral valve insufficiency. Mild tricuspid valve insufficiency. Mild diffuse aortic valve thickening. Calcified aortic root. Right ventricular systolic pressure estimated to be 37 mmHg. Diastolic function is indeterminate. Ordering Physician: Rubio Kaba Referring Physician: Billy Madera Performed By: Katlyn Cho, KAMRYN, RVT
[2020-07-16 12:05] LABS: Bedside Glucose 288 mg/dL (70-110)
--- NOTE | 2020-07-16 14:18 | CASEMGMT ---
RN CM Assessment Note Introduced role of CM to patient in room. Demographics, PCP verified. Patient is awake, alert and able to participate in assessment. The patient states she lives @ home with her daughter in law who is staying to help her due to arm fx. Daughter in law will be at home on dc. Pt states she is generally independent with ADL's but now needs assistance until her arm is healed. Diagnosis: Respiratory Failure PCP: Dr. Madera Specialists: Dr. Nuno, pulmonology and Dr. Heller, endocrinology Insurance: [employer] [facility] PPO Preferred Pharmacy: [facility] Prescription Benefit: yes LNOK: daughter in lawFarideh Living Arrangements: lives in one story home alone. DIL staying to help currently and will be available on dc. Patient has 2 steps into home. States she does not use ambulatory DME. Tranportation: drives DME: Oxygen through [employer] with concentrator and portable tanks. HHC: none SNF: none Patient DC Goals: home on discharge DC Plan: Home with family support. PT/OT evaluations are pending. CM available for discharge planning coordination. Contact CM for any concerns/needs that may arise. Grace CHAWLAN RN ACM
[2020-07-16 16:06] LABS: Bedside Glucose 357 mg/dL (70-110)
[2020-07-16] MEDS: 0.9% Saline Lock 10 ML Syringe IV (17:05)
[2020-07-16] MEDS: Citalopram 40 MG TABLET PO (20:37)
[2020-07-16] MEDS: Atorvastatin Calcium 80 MG Tablet PO (20:37)
[2020-07-16] MEDS: ALPRAZolam 0.5 MG Tablet PO (20:37)
--- NOTE | 2020-07-16 20:46 | NURSING ---
Pt requesting xanax for nerves and HS meds given at this time so she can get some sleep.
[2020-07-16 22:31] LABS: Bedside Glucose 336 mg/dL (70-110)
[2020-07-17] VITALS (8 sets, daily range): BP systolic 95–107; BP diastolic 41–55; PULSE 63–91; RESP 16–20; TEMP 36.4–36.9; O2SAT 98–100
[2020-07-17] MEDS: Ipratropium/Albuterol Sulfate 3 ML AMPUL.NEB INHALATION ×4 (03:38→14:34)
[2020-07-17] MEDS: Insulin Lispro 100 UNIT/ML INSULN.PEN SC ×2 (06:36→11:48)
[2020-07-17 06:45] LABS: Bedside Glucose 243 mg/dL (70-110)
[2020-07-17 07:16] LABS: Anion Gap 7 (5-15); BUN 24 mg/dL (7-18); BUN/Creat Ratio 20.9 RATIO (10-20); Calcium,Total 8.8 mg/dL (8.5-10.1); Chloride 94 mmol/L (98-107); Creatinine, Serum 1.15 mg/dL (0.55-1.02); EST Glomerular Filtration Rate 50 mL/min (>60); Est Glom Filt Rate - Afr Amer 60 mL/min (>60); Estimated Creatinine Clearance 36.52 ml/min; Glucose 245 mg/dL (74-106); Potassium 3.1 mmol/L (3.5-5.1); Sodium Level 134 mmol/L (136-145)
--- NOTE | 2020-07-17 09:08 | CASEMGMT ---
HARLEEN LUCIANO NOTE: PT/OT notes reviewed. Additional therapy recommended and note states pt interested in HHC. Pt ambulated 200 ' w/SBA. HARLEEN LUCIANO to room to discuss discharge planning. Inquired about her interest in HHC and what help she feels she needs. She states she would like an aide to help w/bathing and housecleaning. Pt made aware of [facility] guidelines for coverage for HHC is being homebound. Pt states it does not take a considerable amt of effort to get in/out of vehicle to go places/she is not homebound. HARLEEN LUCIANO informed her that if she would like assistance w/housecleaning/home tasks or an aide to help w/bathing, that this would need to be payed for [id number]. Pt states that is not an option. Pt states her dtr-in-law will be able to stay with her as long as she needs. She states she will let her DIL know unable to have HHC at this time. HARLEEN LUCIANO told pt that if DIL has any questions/concerns that she can call and ask to speak w/this HARLEEN LUCIANO. Discussed option of OP therapy. Pt declines at this time, stating she is not ready for that yet. HARLEEN LUCIANO informed her, if in the future she decides she would like OP therapy, to discuss this with her PCP. She voices understanding. Pt states she does not have her portable O2 tank here. She states her DIL will be the one taking her home @ d/c and she will ask her to bring her portable tank in when she picks her up @ d/c. She denies having any other questions/concerns/discharge needs at this time. Sim STORY RN, CM
--- NOTE | 2020-07-17 09:13 | PN_ITS ---
Patient Problems: Active and Suspected Problems (Last Reviewed 07/12/20 @ 10:34 by July Mak) Diabetes mellitus with hyperglycemia (Acute) Asthma with COPD (Acute) FEV1 65% COPD exacerbation (Acute) Subjective: Patient did well overnight. Patient reports she feels back to her baseline at this time. On further questioning, patient does report eating ham on the day prior to presentation. Patient is not reporting any significant wheeze, chest pain, nominal pain, nausea or vomiting. Patient is hungry and asking for breakf ast. Patient has been on her baseline 4 L nasal cannula. - Physical Exam Vitals/I&O's: Vital Signs Temp Pulse Resp BP Pulse Ox 36.9 C 69 16 95/55 L 98 07/17/20 02:50 07/17/20 07:06 07/17/20 07:06 07/17/20 02:50 07/17/20 07:06 Oxygen Flow Rate (L/min) 4 Oxygen Delivery Method Nasal Cannula Weight: 93.3 kg Body Mass Index (BMI) 37.8 Finger Stick Blood Glucose 552 Intake and Output for Last 24 Hours 07/15/20 07/16/20 07/17/20 23:59 23:59 23:59 Intake Total 1070 / 1310 240 / 240 Output Total 3125 / 3125 Balance -2055 / -1815 240 / 240 General: Alert, Oriented x3, Cooperative, No apparent distress, - - Obese. Speaking in full sentences. HEENT: Atraumatic, PERRLA, EOMI, Normocephalic, - - Nasal cannula in place. Oral: Moist Mucosa, No Gingival or Mucosal Lesions/ Ulcerations Neck: Supple, No JVD, No Nodes, Trachea Midline Lungs: No rhonchi, No wheeze, No rales, Diminished, - - Symmetric expansion Cardiovascular: Regular rate, Regular Rhythm, Normal S1, Normal S2, No murmurs, No rub noted, No Gallop Abdomen: Bowel Sounds Present, Soft, Non Tender, Non-Distended Extremities: No clubbing, No cyanosis, Edema - Trace lower extremity Skin: - - No change from previous Musculoskeletal: No Tenderness to Palpation of Joints or Extremities Lymphatic: No Cervical, Supraclavicular, or Inguinal Adenopathy Neurological: Cranial nerves II-XII grossly intact, Neuro grossly intact, Motor Exam 5/5 strength throughout Psych/Mental Status: Alert and oriented to time, place, person, mood and affect Microbiology Past 72 Hours 07/15/20 19:27 Mucosa - Nose SARS-CoV-2 Antigen (Rapid) - Final Laboratory Results 07/15/20 19:00: B-Natriuretic Peptide 280.4 H 07/16/20 04:00: B-Natriuretic Peptide 263.6 H 07/16/20 08:21: POC Glucose 298 H 07/16/20 08:55: Sodium 135 L, Potassium 3.7, Chloride 99, Carbon Dioxide 28.0, Anion Gap 8, BUN 6 L, Creatinine 0.78, Estim Creat Clear Calc 42.59, Est GFR (MDRD) Af Amer 94, Est GFR (MDRD) Non-Af 77, BUN/Creatinine Ratio 7.7 L, Glucose 324 H, Calcium 9.2 07/16/20 11:48: POC Glucose 288 H 07/16/20 16:02: POC Glucose 357 H 07/16/20 20:35: POC Glucose 336 H 07/17/20 06:38: POC Glucose 243 H 07/17/20 06:44: Sodium 134 L, Potassium 3.1 L, Chloride 94 L, Carbon Dioxide 33.0 H, Anion Gap 7, BUN 24 H, Creatinine 1.15 H, Estim Creat Clear Calc 36.52, Est GFR (MDRD) Af Amer 60, Est GFR (MDRD) Non-Af 50 L, BUN/Creatinine Ratio 20.9 H, Glucose 245 H, Calcium 8.8 Current Medications Acetaminophen (Acetaminophen 500 Mg Tablet) 1,000 mg PO TID PRN PRN PRN Reason: Pain 1-10 or Fever Albuterol/Ipratropium (Ipratropium/Albuterol Sulfate 3 Ml Ampul.Neb) 3 ml INHALATION Q4H.RT PILY Last Admin: 07/17/20 07:06 Dose: 3 ml Documented by: Alprazolam (Alprazolam 0.5 Mg Tablet) 0.5 mg PO DAILY PRN PRN PRN Reason: ANXIETY Last Admin: 07/16/20 20:37 Dose: 0.5 mg Documented by: Aspirin (Aspirin E.C. 81 Mg Tablet) 81 mg PO DAILY PILY Last Admin: 07/16/20 08:24 Dose: 81 mg Documented by: Atorvastatin Calcium (Atorvastatin Calcium 80 Mg Tablet) 80 mg PO QHS [facility] Last Admin: 07/16/20 20:37 Dose: 80 mg Documented by: Citalopram Hydrobromide (Citalopram 40 Mg Tablet) 40 mg PO QHS [facility] Last Admin: 07/16/20 20:37 Dose: 40 mg Documented by: Clopidogrel Bisulfate (Clopidogrel Bisulfate 75 Mg Tablet) 75 mg PO DAILY [facility] Last Admin: 07/16/20 08:24 Dose: 75 mg Documented by: Enoxaparin Sodium (Enoxaparin 40 Mg/0.4 Ml Syringe) 40 mg SC DAILY [facility] Last Admin: 07/16/20 08:23 Dose: 40 mg Documented by: Furosemide (Furosemide 40 Mg/4 Ml Vial) 40 mg IV BID@1000,1800 [facility] Last Admin: 07/16/20 16:56 Dose: 40 mg Documented by: Hydralazine HCl (Hydralazine 20 Mg/Ml Vial) 20 mg IV Q6H PRN PRN PRN Reason: Hypertensive Emergency Sodium Chloride () 250 mls @ 15 mls/hr IV .[id number] PRN PRN Reason: Saline Flush Sodium Chloride () 250 mls @ 15 mls/hr IV .[id number] PRN PRN Reason: Additional IVPB Infusion Indomethacin ([facility] 25 Mg [facility]apsule) [facility] Last Admin: 07/16/20 16:56 Dose: 50 mg Documented by: Insulin Glargine (Insulin Glargine 100 Units/Ml Pen) 46 units SC QPM [facility] Last Admin: 07/16/20 20:37 Dose: 46 units Documented by: Insulin Human Lispro (Insulin Lispro 100 Unit/Ml Insuln.Pen) 0 unit SC [facility]; Protocol Last Admin: 07/17/20 06:36 Dose: 6 unit Documented by: Losartan Potassium (Losartan Potassium 25 Mg Tablet) 25 mg PO DAILY [facility] Last Admin: 07/16/20 08:25 Dose: 25 mg Documented by: Metoprolol Tartrate (Metoprolol Tartrate 25 Mg Tablet) 12.5 mg PO BID [facility] Last Admin: 07/16/20 20:38 Dose: 12.5 mg Documented by: Pantoprazole Sodium (Pantoprazole Sodium 40 Mg Tablet) 40 mg PO DAILY [facility] Last Admin: 07/16/20 08:24 Dose: 40 mg Documented by: Risperidone (Risperidone 1 Mg Tablet) 1.5 mg PO QHS [facility] Last Admin: 07/16/20 20:37 Dose: 1.5 mg Documented by: Sodium Chloride (0.9% Saline Lock 10 Ml Syringe) 10 - 40 ml IV UD PRN PRN Reason: SALINE FLUSH Last Admin: 07/16/20 17:05 Dose: 10 ml Documented by: Medical Necessity - Tobacco Use Smoking Status: Former smoker Assessment/Plan All Active Problems (Last Reviewed 07/12/20 @ 10:34 by July Mak) Chest pain (Acute) Diabetes mellitus with hyperglycemia (Acute) Asthma with COPD (Acute) Acute bronchitis, unspecified (Acute) Acute respiratory failure with hypoxia and hypercapnia (Acute) COPD exacerbation (Acute) Hyperglycemia (Acute) RECOMMENDATIONS: 1. Encourage low-salt diet 2. Okay to discharge from a pulmonary perspective 3. Okay to proceed with elbow surgery as planned 4. Follow-up in pulmonary office as previously scheduled. No urgent [employer]IDE [employer] TOUR follow-up indicated IMPRESSIONS: 1. Acute on chronic hypoxic respiratory failure Unclear etiology at this time. Patient does have COPD/asthma overlap syndrome at baseline. However, given the severity and rapid onset with rapid recovery, this is an unlikely etiology for this hospitalization. Patient may have had an element of flash pulmonary edema, but blood pressures were well controlled on her arrival. Patient does have a history of not taking her medications as prescribed. Given large salt load on the night prior to presentation, congestive heart failure would be a likely etiology. Patient has not had any significant ectopy noted overnight. Would not expect COPD/asthma overlap syndrome to respond this quickly. For this reason, patient can follow- up as previously scheduled and may proceed with surgery on elbow as previously planned. Patient may benefit from an outpatient evaluation by cardiology. 2. Right arm fracture This was present on admission and an incidental finding. This did not have to do with patient's admission to the hospital. Patient had suffered the fracture previously and had been seen in my office asking for surgical clearance. Patient currently awaiting surgical intervention. Patient would benefit from using local block given her lung disease. Pain is well controlled at this time. Okay to continue with orthopedic timetable from my perspective. 3. Diabetes mellitus/CARLO/hypertension/depression/history of tobacco use/obesity Complicates care, management, prognosis and recovery. Likely okay to con tinue with home medications for diabetes. Blood sugars may be transiently elevated secondary to Solu-Medrol. This should only be transient and does not indicate a need for change in diabetic medications. Okay to continue with blood pressure medications, but patient should be monitoring these closely as flash pulmonary edema secondary to hypertensive urgency would be a consideration. Patient did quit smoking 7 months ago, which should help her overall condition Inpatient E&M: 19738 Subs Hosp L2
[2020-07-17] MEDS: Indomethacin 25 MG Capsule 50 MG PO (10:36)
[2020-07-17] MEDS: Clopidogrel Bisulfate 75 MG Tablet PO (10:36)
[2020-07-17] MEDS: Pantoprazole Sodium 40 MG Tablet PO (10:37)
[2020-07-17] MEDS: Aspirin E.C. 81 MG Tablet PO (10:37)
[2020-07-17 12:01] LABS: Bedside Glucose 395 mg/dL (70-110)
--- NOTE | 2020-07-17 12:27 | PCM.DC ---
- Discharge Diagnoses Current Active Problems: Current Active and Chronic Problems (Last Reviewed 07/12/20 @ 10:34 by July Mak) Diabetes mellitus with hyperglycemia (Acute) Asthma with COPD (Acute) FEV1 65% Obesity (Chronic) GERD (gastroesophageal reflux disease) (Chronic) Type 2 diabetes mellitus (Chronic) Generalized anxiety disorder (Chronic) Diabetes (Chronic) Dermatomyositis (Chronic) COPD exacerbation (Acute) Hypertension (Chronic) Smoking (Chronic) Chronic respiratory failure (Chronic) On home oxygen Muscular dystrophy (Chronic) Hypothyroidism (Chronic) Depression (Chronic) [place] esophagus (Chronic) Postprandial bloating (Chronic) You will use the following diet at home:: Calorie/Carbohydrate Controlled (specify 1200, 1400, etc), Cardiac Your food should be the consistency of: Regular Your liquids should be the consistency of: Regular/Thin Discharge Activity: Return to Normal Activity Call your doctor if you observe: Fever of 101 or Higher, Shortness of breath, Dizziness, Fainting spells, Swelling in the ankles, Chest pain, Increased palpitations (irregular heartbeat) Additional Instructions: Follow-up with your primary care physician to obtain a BMP to evaluate kidney function and your potassium since I am starting you on Lasix on discharge. Allergies/Adverse Reactions: Allergies amoxicillin [Amoxicillin] Allergy (Intermediate, Verified 07/15/20 18:39) Rash gabapentin [From Neurontin] Allergy (Verified 07/15/20 18:39) Shortness of breath levofloxacin [From Levaquin] Allergy (Verified 07/15/20 18:39) Hives is allergic to the red dye in the pill form, states she is fine with the iv form. pseudoephedrine HCl [From Sudafed] Allergy (Verified 07/15/20 18:39) Shortness of breath red dye Allergy (Verified 07/15/20 18:39) Hives codeine Adverse Reaction (Verified 07/15/20 18:39) HEADACHE Medications to take at Discharge aspirin 81 mg tablet,delayed release 81 mg PO DAILY #90 tablet. 04/20/19 atorvastatin 80 mg tablet 80 mg PO QHS #90 tab 11/17/19 clopidogrel 75 mg tablet 75 mg PO DAILY #90 tab 11/21/19 losartan 25 mg tablet 25 mg PO DAILY #90 tab 12/01/19 nitroglycerin 0.4 mg sublingual tablet 0.4 mg SUBLINGUAL ONCE #25 tab 12/01/19 pantoprazole 40 mg tablet,delayed release 40 mg PO DAILY #60 tab 01/17/20 risperidone 1 mg tablet 1.5 mg PO QHS 90 Days #135 tab 01/17/20 Acetaminophen 1,000 mg PO TID PRN #1 tab 03/16/20 Ibuprofen 400 mg PO TID PRN #1 tab 03/16/20 bisacodyl 5 mg tablet,delayed release 5 mg PO ONCE PRN #14 tab 05/09/20 metformin 500 mg tablet,extended release 24 hr 1,000 mg PO QPM #180 tab 05/09/20 insulin glargine 100 unit/mL (3 mL) subcutaneous pen 46 unit SC QPM 05/17/20 insulin lispro 100 unit/mL subcutaneous pen 15 unit SC TID #60 ml 05/17/20 alprazolam 0.5 mg tablet 0.5 mg PO DAILY PRN #30 tab 07/08/20 ipratropium 0.5 mg-albuterol 3 mg (2.5 mg base)/3 mL nebulization soln 3 ml INHALATION Q4H PRN PRN #180 ml 07/11/20 albuterol sulfate 90 mcg/actuation aerosol inhaler 2 puff INHALATION Q6H PRN #18 g 07/12/20 metoprolol tartrate 25 mg tablet 12.5 mg PO BID #90 tab 07/13/20 Citalopram [Celexa] 40 mg PO QHS 07/15/20 pen needle, diabetic 32 gauge x 5/32 See Rx Instructions .ROUTE .MEDSUPPLY #400 ea 07/16/20 Furosemide [Lasix] 40 mg PO DAILY #30 tab 07/17/20 The following prescriptions were given: Furosemide [Lasix] 40 mg PO DAILY #30 tab Transmission Status: Pending to [facility] Primary Care Physician: Billy Madera MD [Primary Care Provider] - Please follow up with your Primary Care Physician in: 3-5 days Test Results: Test results from this visit will be discussed in further detail at your follow-up appointment, if applicable.
--- NOTE | 2020-07-17 13:35 | CASEMGMT ---
RN CM NOTE: Dr Nuno requests for maitre d' to provide pt w/low-salt diet information/teaching prior to discharge. Call placed to maitre d'/Usha and she was made aware. Sim STORY RN CM
--- NOTE | 2020-07-17 22:10 | DS.PCM_ITS ---
Discharge Date and Diagnosis - Problem List Patient Problems: Active and Suspected Problems (Last Reviewed 07/12/20 @ 10:34 by July Mak) COPD exacerbation (Acute) Date of Admission: 07/17/20 Date of Discharge: 07/17/20 - Primary Discharge Diagnosis Acute Problems: Active Problems (Last Reviewed 07/12/20 @ 10:34 by July Mak) COPD exacerbation (Acute) - Secondary Discharge Diagnosis Chronic Problems: Chronic Problems (Last Reviewed 07/12/20 @ 10:34 by July Mak) Diabetes mellitus with hyperglycemia (Chronic) Asthma with COPD (Chronic) FEV1 65% Obesity (Chronic) GERD (gastroesophageal reflux disease) (Chronic) Type 2 diabetes mellitus (Chronic) Generalized anxiety disorder (Chronic) Diabetes (Chronic) Dermatomyositis (Chronic) COPD with exacerbation (Chronic) Hyperglycemia (Chronic) Hypertension (Chronic) 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 Per ANGELO @ [facility] 12/08/2018 Smoking (Chronic) Chronic respiratory failure (Chronic) On home oxygen Muscular dystrophy (Chronic) Hyponatremia (Chronic) Hypothyroidism (Chronic) COPD (chronic obstructive pulmonary disease) (Chronic) Depression (Chronic) [place] esophagus (Chronic) Postprandial bloating (Chronic) Anxiety (Chronic) Hospital Course and Treatment Imaging Results: Clinical Impression(s) from Imaging Studies Chest X-Ray 07/15/20 18:34 IMPRESSION: Findings suspicious for Covid 19 pneumonia. Clinical correlation is recommended Electronically Signed: Marco Chong MD at 19:59 EST , Service support , Echo: Interpretation Summary The study was technically difficult. Contrast injection was performed. Left ventricular systolic function is normal. The estimated ejection fraction is 60 %. Mild (1+) mitral valve insufficiency. Mild tricuspid valve insufficiency. Mild diffuse aortic valve thickening. Calcified aortic root. Right ventricular systolic pressure estimated to be 37 mmHg. Diastolic function is indeterminate. Consults: Pulmonology Operations: None Procedures: 2-D Echocardiogram Summary of Care Provided: Per HPI: The patient is a 69 year old with a complex past medical history including COPD, diabetes, generalized anxiety disorder who presents to the hospital with shortness of breath that is acute. Per patient she has had creased difficulty breathing over the past 2 days with became markedly worse over the past 3 hours. Upon arrival patient was tachypneic with respiratory rates in the 30s along with blood pressures that were markedly elevated. In the emergency room she was placed on BiPAP machine and given breathing treatments. Covid test was negative and chest x-ray reveals some fluid overload. Initiating therapy with diuresis was being started in the emergency room with the patient is maintaining a pulse oxygen saturation 98% with a normal heart rate but continues to be hypertensive. She will be admitted overnight to the intensive care unit for further monitoring and will anticipate stepdown in the morning. Hospital Course: 1. Acute on chronic hypoxic respiratory failure secondary to possibly flash pulmonary edema/COPD?asthma overlap syndrome -Echo from 1 year ago with a normal EF and stage I diastolic dysfunction with an elevated pulmonary artery pressure 39 mmHg -Echo was similar to the echo from a year ago. She was discharged on Lasix -We will obtain an ambulatory pulse ox prior to discharge and she will likely need to be on chronic diuretic therapy -Her rapid deterioration in rapid recovery is unlikely to be secondary to COPD. Continue with inhalers, but will discontinue steroids -Discussed with her the plan for discharge today she is back on her home O2 level has significant improvement with diuresis. She expressed understanding of the risk meds of going home and wanted to go home today. She is discharged on Lasix. I expressed to her that she is to follow-up with her PCP in 3 to 5 days for reevaluation of her creatinine given the diuretic. She expressed understanding. 2. CAD status post CABG/HTN/HLD -Pressure is stable, continue with her losartan and metoprolol -Continue with Lasix twice daily, and will plan to discharge on oral Lasix once stable -Continue with aspirin and Plavix 3. DM 2 -We will continue with her Metformin as well as home insulin -Accu-Cheks AC at bedtime 4. GERD -Stable -Continue with PPI 5. Anxiety/depression -Stable -Continue with Xanax, Celexa, risperidone Patient Problems: Active and Suspected Problems (Last Reviewed 07/12/20 @ 10:34 by July Mak) COPD exacerbation (Acute) - Physical Exam Vitals/I&O's: Vital Signs Temp Pulse Resp BP Pulse Ox 97.5 F L 75 20 H 107/41 L 98 07/17/20 10:18 07/17/20 15:07 07/17/20 15:07 07/17/20 10:18 07/17/20 10:18 Oxygen Flow Rate (L/min) 4 Oxygen Delivery Method Nasal Cannula Weight: 205 lb 11.06 oz Body Mass Index (BMI) 37.8 Finger Stick Blood Glucose 552 Intake and Output for Last 24 Hours 07/15/20 07/16/20 07/17/20 23:59 23:59 23:59 Intake Total 1070 / 1310 240 / 240 Output Total 3125 / 3125 Balance -2054 / -1814 240 / 240 General: Alert, Oriented x3, Cooperative, No apparent distress HEENT: Atraumatic, PERRLA, EOMI, Normocephalic Oral: Moist Mucosa Neck: Supple, No JVD Lungs: Clear to auscultation, Normal air movement, No rhonchi, No wheeze, No rales, Diminished Cardiovascular: Regular rate, Regular Rhythm, Normal S1, Normal S2, No murmurs Abdomen: Soft, Non Tender, Non-Distended, No Hepato-splenomegaly Extremities: No edema, Capillary Refill Less than 3 Seconds Skin: No rashes, No breakdown Neurological: Neuro grossly intact, Sensory exam intact to light touch and pain Psych/Mental Status: Normal Affect, Appropriate Microbiology Past 72 Hours 07/15/20 19:27 Mucosa - Nose SARS-CoV-2 Antigen (Rapid) - Final Laboratory Results 07/16/20 20:35: POC Glucose 336 H 07/17/20 06:38: POC Glucose 243 H 07/17/20 06:44: Sodium 134 L, Potassium 3.1 L, Chloride 94 L, Carbon Dioxide 33.0 H, Anion Gap 7, BUN 24 H, Creatinine 1.15 H, Estim Creat Clear Calc 36.52, Est GFR (MDRD) Af Amer 60, Est GFR (MDRD) Non-Af 50 L, BUN/Creatinine Ratio 20.9 H, Glucose 245 H, Calcium 8.8 07/17/20 11:48: POC Glucose 395 H Discharge Activity: Return to Normal Activity Call your doctor if you observe: Fever of 101 or Higher, Shortness of breath, Dizziness, Fainting spells, Swelling in the ankles, Chest pain, Increased palpitations (irregular heartbeat) Home Medications: Medications to take at Discharge aspirin 81 mg tablet,delayed release 81 mg PO DAILY #90 tablet. 04/20/19 atorvastatin 80 mg tablet 80 mg PO QHS #90 tab 11/17/19 clopidogrel 75 mg tablet 75 mg PO DAILY #90 tab 11/21/19 losartan 25 mg tablet 25 mg PO DAILY #90 tab 12/01/19 nitroglycerin 0.4 mg sublingual tablet 0.4 mg SUBLINGUAL ONCE #25 tab 12/01/19 pantoprazole 40 mg tablet,delayed release 40 mg PO DAILY #60 tab 01/17/20 risperidone 1 mg tablet 1.5 mg PO QHS 90 Days #135 tab 01/17/20 Acetaminophen 1,000 mg PO TID PRN #1 tab 03/16/20 Ibuprofen 400 mg PO TID PRN #1 tab 03/16/20 bisacodyl 5 mg tablet,delayed release 5 mg PO ONCE PRN #14 tab 05/09/20 metformin 500 mg tablet,extended release 24 hr 1,000 mg PO QPM #180 tab 05/09/20 insulin glargine 100 unit/mL (3 mL) subcutaneous pen 46 unit SC QPM 05/17/20 insulin lispro 100 unit/mL subcutaneous pen 15 unit SC TID #60 ml 05/17/20 alprazolam 0.5 mg tablet 0.5 mg PO DAILY PRN #30 tab 07/08/20 ipratropium 0.5 mg-albuterol 3 mg (2.5 mg base)/3 mL nebulization soln 3 ml INHALATION Q4H PRN PRN #180 ml 07/11/20 albuterol sulfate 90 mcg/actuation aerosol inhaler 2 puff INHALATION Q6H PRN #18 g 07/12/20 metoprolol tartrate 25 mg tablet 12.5 mg PO BID #90 tab 07/13/20 Citalopram [Celexa] 40 mg PO QHS 07/15/20 pen needle, diabetic 32 gauge x See Rx Instructions .ROUTE .MEDSUPPLY #400 ea 07/16/20 Furosemide [Lasix] 40 mg PO DAILY #30 tab 07/17/20 Following Prescriptions Were Given to Patient: Furosemide [Lasix] 40 mg PO DAILY #30 tab Transmission Status: Received by [facility] Primary Care Physician: Billy Madera MD [Primary Care Provider] - Please follow up with your Primary Care Physician in: 3-5 days Please Follow Up With: Jorge Carranza [employer], [employer]-C Disposition: Home Minutes spent on discharge:: 35 Patient Condition:: Stable Medical Necessity - Tobacco Use Smoking Status: Former smoker Meaningful Use Info Meaningful Use Diagnoses (Choose all that apply): None applicable Inpatient E&M: 30332 [facility]
== END 2020-07-17 15:31 | disposition home or self-care (01) | DRG 189 ==
LOC: ED 18:42 → ICU 23:50 → PCU 07-16 18:10
PROVIDERS: Internal Medicine Critical Care Medicine; Admitting Provider Family Medicine; Emergency Provider Emergency Medicine; PCP Internal Medicine; Visit Provider Family Medicine
DX: J81.0 Acute pulmonary edema (principal); J96.21 Acute and chronic respiratory failure with hypoxia; J98.11 Atelectasis; J44.9 Chronic obstructive pulmonary disease, unspecified; I25.10 Atherosclerotic heart disease of native coronary artery without angina pectoris; Z95.1 Presence of aortocoronary bypass graft; E78.5 Hyperlipidemia, unspecified; E11.65 Type 2 diabetes mellitus with hyperglycemia; I10 Essential (primary) hypertension; K21.9 Gastro-esophageal reflux disease without esophagitis; F32.9 Major depressive disorder, single episode, unspecified; F41.1 Generalized anxiety disorder; Z79.899 Other long term (current) drug therapy; Z79.4 Long term (current) use of insulin; Z87.891 Personal history of nicotine dependence; Z68.39 Body mass index [BMI] 39.0-39.9, adult; E66.9 Obesity, unspecified; S42.301D Unspecified fracture of shaft of humerus, right arm, subsequent encounter for fracture with routine healing; X58.XXXD Exposure to other specified factors, subsequent encounter; Z99.81 Dependence on supplemental oxygen; R33.9 Retention of urine, unspecified; M25.521 Pain in right elbow; R74.8 Abnormal levels of other serum enzymes; G71.00 Muscular dystrophy, unspecified; Z79.51 Long term (current) use of inhaled steroids
CPT/HCPCS: 36415; 36600; 71045; 73200; 76770; 80048; 80053; 81001; 82803; 82962; 83605; 83880; 84484; 85025; 85610; 85730; 87040; 87086; 87426; 87449; 87641; 93005; 93306; 94002; 94003; 94640; 97110; 97162; 97166; 97530; 97535; 99285; J7040; Q9957; A4216; C8929; J1940

== ENCOUNTER 2020-07-17 19:13 | Inpatient (IN) | payer MEDICARE, SELFPAY ==
[2020-06-11 17:57] VITALS: BMI 34.9
[2020-07-16 03:46] VITALS: BMI 37.8
[2020-07-17] VITALS (17 sets, daily range): BP systolic 115–188; BP diastolic 59–140; PULSE 80–136; RESP 12–50; TEMP 36.6–37.2; O2SAT 92–100; BMI 40.1; BMI 39.2
--- NOTE | 2020-07-17 19:26 | EKG12_ITS ---
Test Reason : SOB Blood Pressure : / mmHG Vent. Rate : 089 BPM Atrial Rate : 089 BPM P-R Int : 144 ms QRS Dur : 086 ms QT Int : 396 ms P-R-T Axes : 074 058 -17 degrees QTc Int : 481 ms Normal sinus rhythm T wave abnormality, consider inferior ischemia Abnormal ECG Confirmed by BANG MELVIN, ROSALIA ([id number]), staff editor JAVIER COLBY ([id number]) on 07/19/2020 2:07:24 PM Referred By: IAM Confirmed By:ROSALIA CUENCA MD
--- NOTE | 2020-07-17 19:31 | ED.VIS.GEN ---
History of Present Illness Chief Complaint: Shortness of Breath Informant: Patient Narrative: 70-year-old female presenting with acute onset respiratory distress. She states she was trying to eat dinner when she became very short of breath. Per EMS on their arrival she was in the low 80s on her pulse ox with her baseline O2. They also reported that she was wheezing and gave her 1 DuoNeb. On arrival she appeared to be in respiratory distress and was placed immediately on BiPAP which she states is helping. She states she tested negative for Covid in the hospital when she was recently admitted. She was discharged couple of days ago. - Past Medical History (1) Asthma with COPD Status: Chronic Comment: FEV1 65% (2) Diabetes mellitus with hyperglycemia Status: Chronic (3) Hyperglycemia Status: Inactive (4) Anxiety Status: Chronic Past Medical History - Allergies and Home Meds Allergies/Adverse Reactions: Allergies amoxicillin [Amoxicillin] Allergy (Intermediate, Verified 07/17/20 19:19) Rash gabapentin [From Neurontin] Allergy (Verified 07/17/20 19:19) Shortness of breath levofloxacin [From Levaquin] Allergy (Verified 07/17/20 19:19) Hives is allergic to the red dye in the pill form, states she is fine with the iv form. pseudoephedrine HCl [From Sudafed] Allergy (Verified 07/17/20 19:19) Shortness of breath red dye Allergy (Verified 07/17/20 19:19) Hives codeine Adverse Reaction (Verified 07/17/20 19:19) HEADACHE Prior records reviewed: Yes Past Medical History: - - Reviewed in problem list Surgical History: angioplasty - With coronary stent x2, cholecystectomy Smoking Status: Former smoker - Family History Sibling Family History: Family History (Last Reviewed 07/17/20 @ 22:[address] Yuan Singh MD) Brother Heart disease Mother Colon cancer Heart disease Family History: Reports: Heart Disease - Brother of massive [place] at age 50 Maternal Family History: Family History (Last Reviewed 07/17/20 @ 22:[address] Yuan Singh MD) Brother Heart disease Mother Colon cancer Heart disease Family History: Reports: Heart Disease Paternal Family History: Family History (Last Reviewed 07/17/20 @ 22:[address] Yuan Singh MD) Brother Heart disease Mother Colon cancer Heart disease Family History: Reports: Pulmonary Disease Review of Systems General: Denies: Chills, Fever, Sweats Eyes: Denies: Visual changes - bilaterally, Diplopia Cardiovascular: Denies: Chest pain, Palpitations Respiratory: Reports: Dyspnea, Dyspnea on exertion. Denies: Cough Gastrointestinal: Denies: Abdominal pain, Nausea, Vomiting Genitourinary: Denies: Dysuria, Hematuria Musculoskeletal: Denies: Myalgias, Arthralgias Skin: Denies: Rash, Abscess Neurological: Denies: Headache, Weakness Psych: Denies: Depression, Anxiety Physical Exam Vital Signs/Narrative: Vital Signs Temp Pulse Resp BP Pulse Ox 07/17/20 19:19 98.8 F 129 H 46 H 188/140 H 98 07/17/20 19:13 98.8 F 127 H 25 H 188/140 H 92 Inital Vital Signs reviewed: Yes General: Obese, Acute Distress, - - Hypoxic and appears to be in respiratory distress Head: Normocephalic, Atraumatic Eyes: Perrl, EOMI ENT: Dry mucous membranes. Negative for: No rhinorrhea Cardiovascular: Regular rhythm, Tachycardia Respiratory: Decreased Air Movement, Retractions. Negative for: Wheezing Abdomen: Soft, Nontender Extremities: Nontender, No edema Skin: Normal color, No rash, Diaphoresis. Negative for: Cyanosis Neurological: Alert, Oriented x3 Psychological: Agitated Diagnostic/Tx/Re-eval Clinical Impression(s) from Imaging Studies Chest X-Ray 07/17/20 20:00 IMPRESSION: Stable bilateral lower lobe infiltrates, right greater than left. Electronically Signed: Santino Landon, at 20:24 EST Tel , Service support , Laboratory Data 07/17/20 07/17/20 07/17/20 19:29 19:29 19:29 WBC 24.5 H RBC 4.19 L Hgb 11.8 L Hct 36.7 L MCV 87.6 MCH 28.2 MCHC 32.2 RDW Std Deviation 38.5 RDW Coeff of [place]com 12.0 Plt Count 680 H MPV 11.1 Immature Gran % (Auto) 0.900 Neut % (Auto) 68.2 Lymph % (Auto) 20.9 [place] % (Auto) 7.0 Eos % (Auto) 2.3 Baso % (Auto) 0.7 Absolute Neuts (auto) 16.7 H Absolute Lymphs (auto) 5.13 H Nucleated RBC % 0 Differential Comment COMMENT Diff Path Review May foll PT 13.3 INR 1.1 APTT 26.6 Sodium 129 L Potassium 4.0 Chloride 89 L Carbon Dioxide 32.0 Anion Gap 8 BUN 22 H Creatinine 0.97 Estim Creat Clear Calc 43.29 Est GFR (MDRD) Af Amer 73 Est GFR (MDRD) Non-Af 60 BUN/Creatinine Ratio 22.6 H Glucose 191 H Lactic Acid Calcium 8.6 Total Bilirubin 0.40 AST 36 ALT 25 Alkaline Phosphatase 164 H Troponin I 0.233 H Total Protein 7.4 Albumin 3.5 Globulin 3.9 Albumin/Globulin Ratio 0.9 07/17/20 19:29 WBC RBC Hgb Hct MCV MCH MCHC RDW Std Deviation RDW Coeff of [place] Plt Count MPV Immature Gran % (Auto) Neut % (Auto) Lymph % (Auto) [place] % (Auto) Eos % (Auto) Baso % (Auto) Absolute Neuts (auto) Absolute Lymphs (auto) Nucleated RBC % Differential Comment Diff Path Review PT INR APTT Sodium Potassium Chloride Carbon Dioxide Anion Gap BUN Creatinine Estim Creat Clear Calc Est GFR (MDRD) Af Amer Est GFR (MDRD) Non-Af BUN/Creatinine Ratio Glucose Lactic Acid 2.2 H* Calcium Total Bilirubin AST ALT Alkaline Phosphatase Troponin I Total Protein Albumin Globulin Albumin/Globulin Ratio - Rhythm Strip Rhythm Strip: Sinus Rhythm Rate: 89 - EKG Initial EKG Interpretation: Sinus Rhythm, Inverted T-Waves - Lead III - Medical Decision Making 70-year-old female presenting in respiratory distress. She states this was acute in onset. EMS states that she was wheezing on scene and hypoxic into the 80s. She was given a DuoNeb on arrival. Patient initially appeared to be in respiratory distress and was placed on BiPAP immediately. This did seem to help immensely. Given the patient's vital signs sepsis protocol was initiated. She was pancultured. He has a leukocytosis of 25,000. Is a lactic acid of 2.2. CMP shows slight hyponatremia at 129 as well as prerenal azotemia. Troponin is elevated at 0.233. Patient is denying any chest pain. Fluids were held initially due to history of heart failure as well as possibility of Covid?19. Patient's Covid antigen was negative. Chest x-ray shows bilateral pneumonia. Patient was started folliculitis noted deep. Clinically she was reevaluated several times and appeared to be improving. She is mentating clearly. Discussed with hospitalist who will admit the patient in stabilized condition. Impression: 1. Bilateral pneumonia 2. Elevated troponin 3. Hypoxic respiratory failure 4. Sepsis ED Disposition - Plan for ED Patient: Disposition: Acute Care [facility]
[2020-07-17 19:52] LABS: Absolute Lymphocyte Count 5.13 X10^3/uL (0.83-4.51); Absolute Neutrophil Count 16.7 X10^3/uL (2.0-7.7); Basophil# 0.17 X10^3/uL; Basophil% 0.7 % (0-1); Eosinophil# 0.57 X10^3/uL; Eosinophils% 2.3 % (0-5); Hematocrit 36.7 % (37-47); Hemoglobin 11.8 g/dL (12.0-15.0); Lymphocyte # 5.13 X10^3/ul (4.0); Lymphocyte % 20.9 % (19-41); Mean Corp Hgb Conc 32.2 g/dL (32-36); Mean Corpuscular Hgb 28.2 pg (27.0-32.0); Mean Corpuscular Volume 87.6 fL (81-99); Mean Platelet Vol. 11.1 fl (6.2-12.0); Monocyte# 1.72 X10^3/uL; NRBC Flagged by Analyzer 0 % (0-5); Neutrophil # 16.73 X10^3/uL (2.7-7.7); Neutrophil % 68.2 % (47-70); POSITIVE DIFFERENTIAL YES; Platelet Count 680 K/mm3 (150-450); RBC Distribution Width SD 38.5 fl (35.1-43.9); Red Blood Count 4.19 M/mm3 (4.2-5.4); White Blood Count 24.5 K/mm3 (4.4-11.0)
[2020-07-17 19:57] LABS: Differential Indicated SCAN CRITERIA MET; International Normalized Ratio 1.1; Prothrombin Time (Protime)PT. 13.3 SECONDS (11.7-14.9)
[2020-07-17 19:58] LABS: Partial Thromboplast Time 26.6 Seconds (24.1-36.2)
--- NOTE | 2020-07-17 20:00 | RAD_ITS ---
STUDY: X-RAY CHEST REASON FOR EXAM: Female, 70 years old. Shortness of breath TECHNIQUE: Frontal view of the chest COMPARISON: 07/15/20 FINDINGS: There are stable bilateral lower lobe infiltrates, right greater than left. There are no pleural effusions. There is no pneumothorax. The heart is stable in size. The visualized osseous structures are within normal limits. RAD/Chest 1 View (Portable) IMPRESSION: Stable bilateral lower lobe infiltrates, right greater than left. Electronically Signed: Santino Navarrete, at 20:24 EST Tel , Service support ,
[2020-07-17 20:09] LABS: ALB/GLOB Ratio 0.9 RATIO (0.9-2.4); AST(SGOT) 36 U/L (15-37); Alanine Aminotransfer ALT/SGPT 25 U/L (13-56); Albumin, Serum 3.5 g/dL (3.2-5.0); Alkaline Phosphatase 164 U/L (45-117); Anion Gap 8 (5-15); BUN 22 mg/dL (7-18); BUN/Creat Ratio 22.6 RATIO (10-20); Calcium,Total 8.6 mg/dL (8.5-10.1); Chloride 89 mmol/L (98-107); Creatinine, Serum 0.97 mg/dL (0.55-1.02); EST Glomerular Filtration Rate 60 mL/min (>60); Est Glom Filt Rate - Afr Amer 73 mL/min (>60); Estimated Creatinine Clearance 43.29 ml/min; Globulin 3.9 g/dL (2.2-4.2); Glucose 191 mg/dL (74-106); Protein, Total 7.4 g/dL (6.4-8.2); Sodium Level 129 mmol/L (136-145)
[2020-07-17 20:19] LABS: Lactic Acid 2.2 mmol/L (0.4-1.9)
[2020-07-17] MEDS: Aspirin 81 MG TAB.CHEW 324 MG PO (20:26)
[2020-07-17] MEDS: MethylPREDNISolone 125 MG/2 ML Vial IV (21:31)
--- NOTE | 2020-07-17 21:42 | ED.RN ---
THIS RN SPOKE WITH HER DAUGHTER IN LAW PER PT PERMISSION. SHE WAS GIV EN A PATIENT CARE UPDATE AND INFORMED WSHE WILL BE ADMITTED TO THE HOSPITAL
--- NOTE | 2020-07-17 22:03 | PCM.HP.STD ---
Problem List (1) Chest pain Status: Inactive (2) Diabetes mellitus with hyperglycemia Status: Acute (3) Asthma with COPD Status: Acute Comment: FEV1 65% (4) Obesity Status: Chronic Qualifiers: (5) Acute bronchitis, unspecified Status: Acute (6) GERD (gastroesophageal reflux disease) Status: Chronic (7) Type 2 diabetes mellitus Status: Chronic (8) Generalized anxiety disorder Status: Chronic (9) Diabetes Status: Chronic Qualifiers: Diabetes mellitus type: type 2 Diabetes mellitus skilled nursing insulin use: with skilled nursing use Diabetes mellitus complication status: with hyperglycemia Qualified Code(s): E11.65 - Type 2 diabetes mellitus with hyperglycemia; Z79.4 - FDC (current) use of insulin (10) Dermatomyositis Status: Chronic (11) Acute respiratory failure with hypoxia and hypercapnia Status: Acute (12) COPD exacerbation Status: Acute (13) COPD with exacerbation Status: Inactive (14) Hyperglycemia Status: Inactive (15) Hypertension Status: Chronic Qualifiers: (16) Atherosclerotic heart disease of [place] coronary artery without angina pectoris Status: Chronic Qualifiers: [place] vs. transplanted heart: [place] heart Qualified Code(s): I25.10 - Atherosclerotic heart disease of [place] coronary artery without angina pectoris Comment: Double vessel CAD of the LAD and DIAG#2 Successful PTCA/RACHEL ostial DIAG with a 2.25 x 12 Promus Synergy stent; Successful PTCA/RACHEL mid LAD with a 2.5 x 20 Promus Synergy. Per ANGELO @ [facility] 12/08/2018 (17) Smoking Status: Chronic (18) Chronic respiratory failure Status: Chronic Qualifiers: Respiratory failure complication: hypoxia Qualified Code(s): J96.11 - Chronic respiratory failure with hypoxia Comment: On home oxygen (19) Muscular dystrophy Status: Chronic (20) Hyponatremia Status: Chronic (21) Hypothyroidism Status: Chronic Qualifiers: (22) COPD (chronic obstructive pulmonary disease) Status: Chronic (23) Depression Status: Chronic (24) [place] esophagus Status: Chronic Qualifiers: (25) Postprandial bloating Status: Chronic (26) Anxiety Status: Chronic (27) Severe sepsis Status: Acute (28) Acute respiratory disease Status: Acute History of Present Illness Date of Admission: 07/17/20 Chief Complaint: sob The patient is a 70 year old F with a significant history of COPD with asthmatic component and on 4 L nasal command chronically; diabetes mellitus; depression and anxiety who presented to the emergency department with sudden onset shortness of breath that occurred while eating. Of note patient's was discharged from the hospital on the same day of this presentation under similar circumstances. Her current symptoms started 1 hour before presentation. Patient reportedly was wheezing. Associated with her symptoms is dry cough and right rib pain. Patient was given a breathing treatment by paramedics. BiPAP was placed on patient while at the emergency department. Past Medical History Past Medical History (Chronic Problems): Chronic Problems (Last Reviewed 07/17/20 @ 22:[address] Yuan Singh MD) Obesity (Chronic) GERD (gastroesophageal reflux disease) (Chronic) Type 2 diabetes mellitus (Chronic) Generalized anxiety disorder (Chronic) Diabetes (Chronic) Dermatomyositis (Chronic) Hypertension (Chronic) Atherosclerotic heart disease of [place] coronary artery without angina pectoris (Chronic) Double vessel CAD of the LAD and DIAG#2 Successful PTCA/RACHEL ostial DIAG with a 2.25 x 12 Promus Synergy stent; Successful PTCA/RACHEL mid LAD with a 2.5 x 20 Promus Synergy. Per DJN @ [facility] 12/08/2018 Smoking (Chronic) Chronic respiratory failure (Chronic) On home oxygen Muscular dystrophy (Chronic) Hyponatremia (Chronic) Hypothyroidism (Chronic) COPD (chronic obstructive pulmonary disease) (Chronic) Depression (Chronic) [place] esophagus (Chronic) Postprandial bloating (Chronic) Anxiety (Chronic) Medical History: Medical History (Last Reviewed 07/17/20 @ 22:[address] 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 Per DJN @ [facility] 12/08/2018 COPD (chronic obstructive pulmonary disease) (Chronic) J44.9 Depression (Chronic) F32.9 Anxiety (Chronic) F41.9 Heart disease I51.9 History of constipation Z87.19 Lung disease J98.4 SOB (shortness of breath) R06.02 Allergies amoxicillin [Amoxicillin] Allergy (Intermediate, Verified 07/17/20 19:19) Rash gabapentin [From Neurontin] Allergy (Verified 07/17/20 19:19) Shortness of breath levofloxacin [From Levaquin] Allergy (Verified 07/17/20 19:19) Hives is allergic to the red dye in the pill form, states she is fine with the iv form. pseudoephedrine HCl [From Sudafed] Allergy (Verified 07/17/20 19:19) Shortness of breath red dye Allergy (Verified 07/17/20 19:19) Hives codeine Adverse Reaction (Verified 07/17/20 19:19) HEADACHE Home Medications: Ambulatory Orders Medication Instructions Recorded aspirin 81 mg tablet,delayed 81 mg PO DAILY #90 tablet. 04/20/19 release atorvastatin 80 mg tablet 80 mg PO QHS #90 tab 11/17/19 clopidogrel 75 mg tablet 75 mg PO DAILY #90 tab 11/21/19 losartan 25 mg tablet 25 mg PO DAILY #90 tab 12/01/19 nitroglycerin 0.4 mg sublingual 0.4 mg SUBLINGUAL ONCE #25 tab 12/01/19 tablet pantoprazole 40 mg tablet,delayed 40 mg PO DAILY #60 tab 01/17/20 release risperidone 1 mg tablet 1.5 mg PO QHS 90 Days #135 tab 01/17/20 Acetaminophen 1,000 mg PO TID PRN #1 tab 03/16/20 Ibuprofen 400 mg PO TID PRN #1 tab 03/16/20 bisacodyl 5 mg tablet,delayed 5 mg PO ONCE PRN #14 tab 05/09/20 release metformin 500 mg tablet,extended 1,000 mg PO QPM #180 tab 05/09/20 release 24 hr insulin glargine 100 unit/mL (3 46 unit SC QPM 05/17/20 mL) subcutaneous pen insulin lispro 100 unit/mL 15 unit SC TID #60 ml 05/17/20 subcutaneous pen alprazolam 0.5 mg tablet 0.5 mg PO DAILY PRN #30 tab 07/08/20 ipratropium 0.5 mg-albuterol 3 mg 3 ml INHALATION Q4H PRN PRN #180 ml 07/11/20 (2.5 mg base)/3 mL nebulization soln albuterol sulfate 90 mcg/actuation 2 puff INHALATION Q6H PRN #18 g 07/12/20 aerosol inhaler metoprolol tartrate 25 mg tablet 12.5 mg PO BID #90 tab 07/13/20 Citalopram [Celexa] 40 mg PO QHS 07/15/20 pen needle, diabetic 32 gauge x See Rx Instructions .ROUTE 07/16/20 .MEDSUPPLY #400 ea Furosemide [Lasix] 40 mg PO DAILY #30 tab 07/17/20 Surgical History: Surgical History (Last Reviewed 07/17/20 @ 22:[address] 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 Successful PTCA/RACHEL mid LAD with a 2.5 x 20 Promus Synergy, post dilated with a 2.5 x 12 [place] Balloon after DIAG stent deployed; 75%-->0%, no dissection. Surgical History: angioplasty - With coronary stent x2, cholecystectomy Psychiatric History: Anxiety, Depression LITIGATION SUPPORT ANALYST History: No pertinent LITIGATION SUPPORT ANALYST history Smoking Status: Former smoker - *Family History Sibling Family History: Family History (Last Reviewed 07/17/20 @ 22:[address] Yuan Singh MD) Brother Heart disease Mother Colon cancer Heart disease History Items: Heart Disease - Brother of massive [place] at age 50 Maternal Family History: Family History (Last Reviewed 07/17/20 @ 22:[address] Yuan Singh MD) Brother Heart disease Mother Colon cancer Heart disease History Items: Heart Disease Paternal Family History: Family History (Last Reviewed 07/17/20 @ 22:[address] Yuan Singh MD) Brother Heart disease Mother Colon cancer Heart disease History Items: Pulmonary Disease Review of Systems Constitutional: Reports: Chills. Denies: Fever, Weight Change HEENT: Denies: Head Aches, Sinus Congestion, Sinus Drainage Cardiovascular: Denies: Chest Pain, Palpitations Respiratory: Reports: Cough, Shortness of Breath. Denies: Shortness of breath at rest, Sputum production Gastrointestinal: Denies: Abdominal Pain, Nausea, Vomiting Genitourinary: Denies: Dysuria Musculoskeletal: Denies: Joint Pain, Joint Tenderness Skin: Denies: Rash, Wounds Neurological: Denies: Numbness, Tingling, Focal weakness Psychiatric: Reports: Anxiety, Depression. Denies: Homicidal Ideations, Suicidal Ideations Hematologic/ Lymphatic: Denies: Easy Bruising, Easy Bleeding VTE Information - Inpt Only VTE Present on Admission: No VTE Mechan Device Prophylaxis: None VTE Pharm Prophylaxis ordered?: Yes Patient Problems: Active and Suspected Problems (Last Reviewed 07/17/20 @ 22:[address] Yuan Singh MD) Diabetes mellitus with hyperglycemia (Acute) Severe sepsis (Acute) Acute respiratory disease (Acute) Asthma with COPD (Acute) FEV1 65% Acute bronchitis, unspecified (Acute) Acute respiratory failure with hypoxia and hypercapnia (Acute) COPD exacerbation (Acute) - Physical Exam Vitals/I&O's: Vital Signs Temp Pulse Resp BP Pulse Ox 98.8 F 83 27 H 135/60 H 100 07/17/20 21:36 07/17/20 21:36 07/17/20 21:36 07/17/20 21:36 07/17/20 21:36 Oxygen Flow Rate (L/min) 15 Oxygen Delivery Method Bi-pap Weight: 99.6 kg Body Mass Index (BMI) 40.1 Finger Stick Blood Glucose 552 General: Alert, Oriented x3, Cooperative HEENT: Atraumatic, PERRLA, EOMI, Normocephalic Neck: Supple, No JVD, Negative Carotid Bruits Lungs: Diminished, Tachypneic, Using Accessory Muscles, Wheezes, - - On BiPAP Cardiovascular: Regular rate, Normal S1, Normal S2, No murmurs Abdomen: Bowel Sounds Present, Soft, Non Tender Extremities: No edema, Capillary Refill Less than 3 Seconds Skin: No rashes, No breakdown Musculoskeletal: No Tenderness to Palpation of Joints or Extremities Neurological: Cranial nerves II-XII grossly intact Psych/Mental Status: Anxious Microbiology Past 72 Hours 07/17/20 19:39 Mucosa - Nose SARS-CoV-2 Antigen (Rapid) - Final Laboratory Results 07/17/20 19:29: WBC 24.5 H, RBC 4.19 L, Hgb 11.8 L, Hct 36.7 L, MCV 87.6, MCH 28.2, MCHC 32.2, RDW Std Deviation 38.5, RDW Coeff of [place] 12.0, Plt Count 680 H, MPV 11.1, Immature Gran % (Auto) 0.900, Neut % (Auto) 68.2, Lymph % (Auto) 20.9, [place] % (Auto) 7.0, Eos % (Auto) 2.3, Baso % (Auto) 0.7, Absolute Neuts (auto) 16.7 H, Absolute Lymphs (auto) 5.13 H, Nucleated RBC % 0, Differential Comment COMMENT, Diff Path Review December07/17/20 19:29: PT 13.3, INR 1.1, APTT 26.6 07/17/20 19:29: Sodium 129 L, Potassium 4.0, Chloride 89 L, Carbon Dioxide 32.0, Anion Gap 8, BUN 22 H, Creatinine 0.97, Estim Creat Clear Calc 43.29, Est GFR (MDRD) Af Amer 73, Est GFR (MDRD) Non-Af 60, BUN/Creatinine Ratio 22.6 H, Glucose 191 H, Calcium 8.6, Total Bilirubin 0.40, AST 36, ALT 25, Alkaline Phosphatase 164 H, Troponin I 0.233 H, Total Protein 7.4, Albumin 3.5, Globulin 3.9, Albumin/Globulin Ratio 0.9 07/17/20 19:29: Lactic Acid 2.2 H* Current Medications Vancomycin HCl 1,500 mg/ (Sodium Chloride) 530 mls @ 250 mls/hr IV X1 ONE Stop: 07/17/20 23:19 Assessment/Plan All Active Problems (Last Reviewed 07/17/20 @ 22:[address] Yuan Singh MD) Diabetes mellitus with hyperglycemia (Acute) Severe sepsis (Acute) Acute respiratory disease (Acute) Asthma with COPD (Acute) Acute bronchitis, unspecified (Acute) Acute respiratory failure with hypoxia and hypercapnia (Acute) COPD exacerbation (Acute) Severe sepsis secondary to pneumonia. Gram-positive or gram-negative Lactic acid: 2.2. Of note patient is on Metformin which can also contribute to lactic acidosis. White count of 24.5 Respiratory rate as high as 44 on presentation. Blood culture ?2 ordered at emergency department; follow Impression of chest x-ray: Stable bilateral lower lobe infiltrates, right greater than left. Actual chest x-ray on this presentation and previous chest x-ray on 07/15/2020 was independently interpreted. I agree radiologist interpretation. Antibiotics: Because of amoxicillin allergy of rash patient was given aztreonam at emergency department. Also she was given vancomycin. Vancomycin IV ordered inpatient. Will start patient on cefepime. MRSA nasal screen ordered. IV hydration: No IV hydration was given at this time as on last admission; flash pulmonary edema was a consideration and patient received IV Lasix on that admission. IV Lasix not ordered at this time. Legionella antigen screen and Strep antigen ordered Acute COPD as the patient DuoNeb scheduled. Albuterol as needed Solu-Medrol ordered. On BiPAP; continued. Leather Cutter/corrugator helper consult. Acute on chronic respiratory failure. Due to impending respiratory failure patient was placed on the BiPAP at emergency department BiPAP continued. We will admit to intensive care unit and will consult silk screen printer/corrugator helper. Of note patient was seen by a corrugator helper on recent admission. Elevated troponin EKG showed prominent T wave inversion in lead III and aVF. Review of old records (21 June 2020) shows mild T wave inversion in lead III but not in aVF. Likely from demand ischemia secondary to COPD aspiration and severe sepsis. Trend troponin. Received aspirin 324 mg at emergency department. Aspirin and Plavix continued. Diabetes mellitus with hyperglycemia Patient with hyperglycemia on presentation. Basal insulin continued. Prandial insulin adjusted. Accu-Chek with correction scale insulin ordered. Anticipate that with steroids patient insulin requirements may increase. Heart failure with preserved ejection fraction Echocardiogram on 07/16/2020 showed an ejection fraction of 60%. Diastolic function was indeterminate. Right ventricle systolic pressure was 37 mmHg. Continue home Lasix. CAD status post stent Aspirin and Plavix continued Elevated alkaline phosphatase Chronic Trend CMP. Anxiety disorder Celexa continued Xanax continued Risperidone continued. Hypertension Blood pressure was elevated on presentation. Losartan continue Trend blood pressure and adjust blood pressure medications. DVT prophylaxis Subcutaneous Lovenox Inpatient E&M: 04096 Init Hosp L3
[2020-07-17 23:29] LABS: Reflex Lactate? Y
[2020-07-17 23:41] LABS: Color, Urine Yellow (Yellow); Glucose, Dipstick Normal (Normal); Ketone-Dipstick Negative (Negative); Leukocyte Esterase-Dipstick Negative /ul (Negative); Mucous, Urine 0 SEEN /hpf (<or=2+); Nitrite-Dipstick Negative (Negative); Occult Blood-Urine Negative /ul (Negative); Protein-Dipstick Negative (Negative); Red Blood Cells-Urine 0 SEEN /hpf (0-5); Squamous Epithelial Cells - UA 0 SEEN /hpf (5-10); Urine Bilirubin Dipstick Negative (Negative); Urine Clarity Clear (Clear); Urine Urobilinogen Normal (Normal); White Blood Cells 0 SEEN /hpf (0-5)
[2020-07-17 23:47] LABS: Bacteria RARE /hpf (None Seen)
[2020-07-17] MEDS: ALPRAZolam 0.5 MG Tablet PO (23:54)
[2020-07-17] MEDS: Atorvastatin Calcium 80 MG Tablet PO (23:54)
[2020-07-17] MEDS: Citalopram 40 MG TABLET PO (23:54)
[2020-07-17] MEDS: RisperiDONE 0.5 MG Tablet 1.5 MG PO (23:55)
[2020-07-18] VITALS (28 sets, daily range): BP systolic 93–160; BP diastolic 44–93; PULSE 61–85; RESP 12–36; TEMP 36–36.5; O2SAT 92–100
[2020-07-18] MEDS: Insulin Lispro 100 UNIT/ML INSULN.PEN SC ×5 (00:07→21:27)
[2020-07-18 00:10] LABS: Bedside Glucose 191 mg/dL (70-110)
--- NOTE | 2020-07-18 00:15 | PCM.RX.CS ---
Consult Pharmacy has been consulted to manage selected antiobiotic: Vancomycin Type of Consult: New start Suspected Infection: Sepsis Prior Doses of Antibiotics Received/Current Regimen: Medications Vancomycin 1000mg IV q12h to start 07/18/20 1100 Discontinued Medications Vancomycin HCl 1,500 mg/ (Sodium Chloride) 530 mls @ 250 mls/hr IV X1 ONE Stop: 07/17/20 23:19 Last Admin: 07/17/20 22:25 Dose: 250 mls/hr Documented by: Labs: Sodium 129 mmol/L (136-145) L 07/17/20 19:29 Potassium 4.0 mmol/L (3.5-5.1) 07/17/20 19:29 Chloride 89 mmol/L (98-107) L 07/17/20 19:29 Carbon Dioxide 32.0 mmol/L (21.0-32.0) 07/17/20 19:29 Anion Gap 8 (5-15) 07/17/20 19:29 BUN 22 mg/dL (7-18) H 07/17/20 19:29 Creatinine 0.97 mg/dL (0.55-1.02) 07/17/20 19:29 Est GFR (MDRD) Af Amer 73 mL/min (>60) 07/17/20 19:29 Est GFR (MDRD) Non-Af 60 mL/min (>60) 07/17/20 19:29 BUN/Creatinine Ratio 22.6 RATIO (10-20) H 07/17/20 19:29 Glucose 191 mg/dL (74-106) H 07/17/20 19:29 Microbiology: Microbiology 07/17/20 19:39 Mucosa - Nose SARS-CoV-2 Antigen (Rapid) - Final Weight used for dosin.3 kg Estimated Creatinine Clearance: 59.61 Goal Trough: 15-20 mcg/mL Pharmacy Plan for Drug Dosing: Pharmacy Service will continue to monitor and adjust dosing as required. Follow-Up Labs: Trough Vancomycin - draw 30 minutes before 4th dose due Labs to be done on [date and time ordered]: 07/19/20 1039
[2020-07-18 00:22] LABS: Lactic Acid 1.4 mmol/L (0.4-1.9)
[2020-07-18] MEDS: 0.9% Saline Lock 10 ML Syringe IV ×3 (00:40→05:13)
[2020-07-18 00:45] LABS: Allen Test Positive; Base Excess 4 mmol/L (-2 to +2); Bicarbonate 28.3 mmol/L (22-26); Blood Gas Specimen Type ART; FI02 25; O2 Delivery Device BiPAP; PEEP 8; PO2 75 mmHG (75-100); RR 12; SITE L Radial; SO2 95 % (95-99); Total Carbon Dioxide 30 mmol/L; pCO2 41.3 mmHg (35-45); pH 7.44 (7.35-7.45)
[2020-07-18 01:44] LABS: M R Staph aureus DNA By PCR Negative (Negative); Probe Check PASS; Specimen Processing Control PASS
[2020-07-18 04:00] LABS: Absolute Lymphocyte Count 0.64 X10^3/uL (0.83-4.51); Basophil# 0.02 X10^3/uL; Basophil% 0.2 % (0-1); Eosinophil# 0.03 X10^3/uL; Eosinophils% 0.3 % (0-5); Hemoglobin 10.1 g/dL (12.0-15.0); Lymphocyte # 0.64 X10^3/ul (4.0); Lymphocyte % 6.5 % (19-41); Mean Corp Hgb Conc 32.6 g/dL (32-36); Mean Corpuscular Volume 85.9 fL (81-99); Mean Platelet Vol. 10.8 fl (6.2-12.0); Monocyte# 0.15 X10^3/uL; Monocyte% 1.5 % (0-10); NRBC Flagged by Analyzer 0 % (0-5); Neutrophil # 8.99 X10^3/uL (2.7-7.7); Neutrophil % 90.9 % (47-70); Platelet Count 382 K/mm3 (150-450); RBC Distribution Width SD 37.6 fl (35.1-43.9); Red Blood Count 3.61 M/mm3 (4.2-5.4); White Blood Count 9.9 K/mm3 (4.4-11.0)
[2020-07-18 04:11] LABS: ALB/GLOB Ratio 0.8 RATIO (0.9-2.4); AST(SGOT) 30 U/L (15-37); Alanine Aminotransfer ALT/SGPT 26 U/L (13-56); Albumin, Serum 2.9 g/dL (3.2-5.0); Alkaline Phosphatase 130 U/L (45-117); Anion Gap 5 (5-15); BUN 19 mg/dL (7-18); BUN/Creat Ratio 23.1 RATIO (10-20); Calcium,Total 8.3 mg/dL (8.5-10.1); Chloride 94 mmol/L (98-107); Creatinine, Serum 0.82 mg/dL (0.55-1.02); EST Glomerular Filtration Rate 73 mL/min (>60); Est Glom Filt Rate - Afr Amer 89 mL/min (>60); Estimated Creatinine Clearance 51.21 ml/min; Globulin 3.6 g/dL (2.2-4.2); Glucose 291 mg/dL (74-106); Potassium 4.2 mmol/L (3.5-5.1); Protein, Total 6.5 g/dL (6.4-8.2); Sodium Level 130 mmol/L (136-145)
[2020-07-18] MEDS: Ipratropium/Albuterol Sulfate 3 ML AMPUL.NEB INHALATION ×4 (07:46→21:27)
[2020-07-18] MEDS: Insulin Lispro 100 UNIT/ML INSULN.PEN 12 UNIT SC ×3 (08:36→17:20)
[2020-07-18] MEDS: Losartan Potassium 25 MG Tablet PO (08:38)
[2020-07-18] MEDS: Aspirin E.C. 81 MG Tablet PO (08:38)
[2020-07-18] MEDS: Furosemide 40 MG Tablet PO (08:39)
[2020-07-18] MEDS: Enoxaparin 40 MG/0.4 ML Syringe SC (08:39)
[2020-07-18] MEDS: Metoprolol Tartrate 25 MG Tablet 12.5 MG PO ×2 (08:39→23:04)
[2020-07-18] MEDS: Pantoprazole Sodium 40 MG Tablet PO ×2 (08:40)
[2020-07-18 08:50] LABS: Bedside Glucose 363 mg/dL (70-110)
[2020-07-18] MEDS: Clopidogrel Bisulfate 75 MG Tablet PO (10:04)
--- NOTE | 2020-07-18 10:15 | PN_ITS ---
Patient Problems: Active and Suspected Problems (Last Reviewed 07/17/20 @ 22:[address] Yuan Singh MD) Severe sepsis (Acute) Acute respiratory disease (Acute) Acute bronchitis, unspecified (Acute) Acute respiratory failure with hypoxia and hypercapnia (Acute) COPD exacerbation (Acute) Subjective: Patient readmitted shortly after discharge yesterday. Unclear etiology at this time. Patient reports that she became significantly short of breath while eating dinner. Patient was reportedly hypoxic on initial presentation by EMS. Since being admitted to the hospital, patient has been on minimal BiPAP settings. Patient did have some urinary retention requiring straight cath x2 for 1400 and 1600 cc. Ever, this morning, patient was able to reportedly empty her bladder. Patient did report to having spaghetti with dinner, but no aspiration was reported. - Physical Exam Vitals/I&O's: Vital Signs Temp Pulse Resp BP Pulse Ox 36.0 C L 63 17 103/47 L 100 07/18/20 08:00 07/18/20 10:00 07/18/20 10:00 07/18/20 10:00 07/18/20 10:00 Oxygen Flow Rate (L/min) 4 Oxygen Delivery Method Nasal Cannula Weight: 95.9 kg Body Mass Index (BMI) 39.2 Finger Stick Blood Glucose 552 Intake and Output for Last 24 Hours 07/16/20 07/17/20 07/18/20 23:59 23:59 23:59 Intake Total 100 / 100 1090 / 1090 Output Total 1400 / 1400 1775 / 1775 Balance -1300 / -1300 -685 / -685 General: Alert, Oriented x3, Cooperative, No apparent distress, - - Obese. Speaking in full sentences HEENT: Atraumatic, PERRLA, EOMI, Normocephalic, - - No scleral icterus or in jection noted Oral: Moist Mucosa, No Gingival or Mucosal Lesions/ Ulcerations, - - Crowded posterior pharynx Neck: Supple, No JVD, No Nodes, Trachea Midline Lungs: No rhonchi, No wheeze, No rales, Diminished, - - Symmetric expansion Cardiovascular: Regular rate, Regular Rhythm, Normal S1, Normal S2, No murmurs, No rub noted, No Gallop, - - No significant ectopy noted overnight Abdomen: Bowel Sounds Present, Soft, Non Tender, Non-Distended, Obese Extremities: No clubbing, No cyanosis, No edema Skin: No rashes, No breakdown Musculoskeletal: No Tenderness to Palpation of Joints or Extremities Lymphatic: No Cervical, Supraclavicular, or Inguinal Adenopathy Neurological: Cranial nerves II-XII grossly intact, Neuro grossly intact, Motor Exam 5/5 strength throughout Psych/Mental Status: Alert and oriented to time, place, person, mood and affect Microbiology Past 72 Hours 07/17/20 23:30 Urine Catheter - Catheter Legionella Antigen - Final 07/17/20 23:30 Urine Catheter - Catheter Streptococcus pneumoniae Antigen (M - Final 07/17/20 19:39 Mucosa - Nose SARS-CoV-2 Antigen (Rapid) - Final Laboratory Results 07/17/20 19:29: WBC 24.5 H, RBC 4.19 L, Hgb 11.8 L, Hct 36.7 L, MCV 87.6, MCH 28.2, MCHC 32.2, RDW Std Deviation 38.5, RDW Coeff of Malcom 12.0, Plt Count 680 H, MPV 11.1, Immature Gran % (Auto) 0.900, Neut % (Auto) 68.2, Lymph % (Auto) 20.9, Gove % (Auto) 7.0, Eos % (Auto) 2.3, Baso % (Auto) 0.7, Absolute Neuts (auto) 16.7 H, Absolute Lymphs (auto) 5.13 H, Nucleated RBC % 0, Differential Comment COMMENT, Diff Path Review December07/17/20 19:29: PT 13.3, INR 1.1, APTT 26.6 07/17/20 19:29: Sodium 129 L, Potassium 4.0, Chloride 89 L, Carbon Dioxide 32.0, Anion Gap 8, BUN 22 H, Creatinine 0.97, Estim Creat Clear Calc 43.29, Est GFR (MDRD) Af Amer 73, Est GFR (MDRD) Non-Af 60, BUN/Creatinine Ratio 22.6 H, Glucose 191 H, Calcium 8.6, Total Bilirubin 0.40, AST 36, ALT 25, Alkaline Phosphatase 164 H, Troponin I 0.233 H, Total Protein 7.4, Albumin 3.5, Globulin 3.9, Albumin/Globulin Ratio 0.9 07/17/20 19:29: Lactic Acid 2.2 H* 07/17/20 23:05: MRSA (PCR) Negative 07/17/20 23:30: Urine Color Yellow, Urine Clarity Clear, Urine pH 6.0, Ur Specific [place] 1.010, Urine Protein Negative, Urine Glucose (UA) Normal, Urine Ketones Negative, Urine Occult Blood Negative, Urine Nitrite Negative, Urine Bilirubin Negative, Urine Urobilinogen Normal, Ur Leukocyte Esterase Negative, Urine RBC 0 SEEN, Urine WBC 0 SEEN, Ur Squamous Epith Cells 0 SEEN, Urine Bacteria RARE, Urine Mucus 0 SEEN 07/17/20 23:45: Troponin I 0.483 H 07/17/20 23:45: Lactic Acid 1.4 07/18/20 00:03: POC Glucose 191 H 07/18/20 00:41: Specimen Type ART, Sample Site L Radial, pH 7.44, Bicarbonate Actual 28.3 H, Total CO2 30, Base Excess 4 H, O2 Saturation 95, O2 % 25, ABG pCO 2 41.3, ABG pO2 75, Dima Test Positive, Respiration Rate 12, O2 Delivery Device BiPAP, POC PEEP 8 07/18/20 01:25: Troponin I 0.403 H 07/18/20 03:50: Sodium 130 L, Potassium 4.2, Chloride 94 L, Carbon Dioxide 31.0, Anion Gap 5, BUN 19 H, Creatinine 0.82, Estim Creat Clear Calc 51.21, Est GFR (MDRD) Af Amer 89, Est GFR (MDRD) Non-Af 73, BUN/Creatinine Ratio 23.1 H, Glucose 291 H, Calcium 8.3 L, Total Bilirubin 0.40, AST 30, ALT 26, Alkaline Phosphatase 130 H, Total Protein 6.5, Albumin 2.9 L, Globulin 3.6, Albumin/Globulin Ratio 0.8 L 07/18/20 03:50: WBC 9.9, RBC 3.61 L, Hgb 10.1 L, Hct 31.0 L, MCV 85.9, MCH 28.0, MCHC 32.6, RDW Std Deviation 37.6, RDW Coeff of [place]com 12.0, Plt Count 382, MPV 10 .8, Immature Gran % (Auto) 0.600, Neut % (Auto) 90.9 H, Lymph % (Auto) 6.5 L, Gove % (Auto) 1.5, Eos % (Auto) 0.3, Baso % (Auto) 0.2, Absolute Neuts (auto) 9.0 H, Absolute Lymphs (auto) 0.64 L, Nucleated RBC % 0 07/18/20 08:33: POC Glucose 363 H Current Medications Acetaminophen (Acetaminophen 500 Mg Tablet) 1,000 mg PO TID PRN PRN Reason: Pain 1-10 or Fever Albuterol Sulfate (Albuterol 2.5 Mg/3 Ml Vial.Neb.) 2.5 mg INHALATION Q2H PRN PRN PRN Reason: SOB/Wheezing Albuterol/Ipratropium (Ipratropium/Albuterol Sulfate 3 Ml Ampul.Neb) 3 ml INHALATION Q4HWA.RT [facility] Last Admin: 07/18/20 07:46 Dose: 3 ml Documented by: Alprazolam (Alprazolam 0.5 Mg Tablet) 0.5 mg PO DAILY PRN PRN Reason: ANXIETY Last Admin: 07/17/20 23:54 Dose: 0.5 mg Documented by: Aspirin (Aspirin E.C. 81 Mg Tablet) [facility] Last Admin: 07/18/20 08:38 Dose: 81 mg Documented by: Atorvastatin Calcium (Atorvastatin Calcium 80 Mg Tablet) 80 mg PO QHS [facility] Last Admin: 07/17/20 23:54 Dose: 80 mg Documented by: Benzonatate (Benzonatate 100 Mg Capsule) 100 mg PO Q6H PRN PRN PRN Reason: COUGH Bisacodyl (Bisacodyl 5 Mg Tablet) 5 mg PO X1 PRN PRN Reason: constipation Citalopram Hydrobromide (Citalopram 40 Mg Tablet) 40 mg PO QHS [facility] Last Admin: 07/17/20 23:54 Dose: 40 mg Documented by: Clopidogrel Bisulfate (Clopidogrel Bisulfate 75 Mg Tablet) 75 mg PO DAILY [facility] Last Admin: 07/18/20 10:04 Dose: 75 mg Documented by: Dextrose (Dextrose 50%-Water 25 Gm/50 Ml Disp.Syrin) 0 gm IV X1 PRN; Protocol PRN Reason: Hypoglycemia Enoxaparin Sodium (Enoxaparin 40 Mg/0.4 Ml Syringe) 40 mg SC DAILY [facility] Last Admin: 07/18/20 08:39 Dose: 40 mg Documented by: Furosemide (Furosemide 40 Mg Tablet) 40 mg PO DAILY [facility] Last Admin: 07/18/20 08:39 Dose: 40 mg Documented by: Glucagon (Glucagon 1 Mg/Ml Syringe) 1 mg IM .X1 PRN PRN Reason: Hypoglycemia Cefepime HCl 2 gm/ Sodium (Chloride) 100 mls @ 200 mls/hr IV Q12 [facility] Last Infusion: 07/18/20 01:11 Dose: Infused Documented by: Vancomycin IV Pharmacy to Dose (1 ea/ Sodium Chloride) 500 mls @ 250 mls/hr IV X1 PRN; Protocol PRN Reason: Rx to Dose Sodium Chloride () 250 mls @ 15 mls/hr IV .[id number] PRN PRN Reason: Saline Flush Sodium Chloride () 250 mls @ 15 mls/hr IV .[id number] PRN PRN Reason: Additional IVPB Infusion Vancomycin HCl (Vancomycin) 1,000 mg in 200 mls @ 200 mls/hr IV Q12H [facility] Insulin Glargine (Insulin Glargine 100 Units/Ml Pen) 46 units SC QHS [facility] Insulin Human Lispro (Insulin Lispro 100 Unit/Ml Insuln.Pen) 12 unit SC 0800,1200,1700 [facility] Last Admin: 07/18/20 08:36 Dose: 12 u Documented by: Insulin Human Lispro (Insulin Lispro 100 Unit/Ml Insuln.Pen) 0 unit SC ACHS [facility]; Protocol Last Admin: 07/18/20 08:35 Dose: 8 u Documented by: Losartan Potassium (Losartan Potassium 25 Mg Tablet) 25 mg PO DAILY [facility] Last Admin: 07/18/20 08:38 Dose: 25 mg Documented by: Melatonin (Melatonin 3 Mg Tablet) 3 mg PO QHS PRN PRN PRN Reason: INSOMNIA Methylprednisolone (Methylprednisolone 40 Mg/Ml Vial) 40 mg IV Q8 [facility] Last Admin: 07/18/20 05:14 Dose: 40 mg Documented by: Metoprolol Tartrate (Metoprolol Tartrate 25 Mg Tablet) 12.5 mg PO BID [facility] Last Admin: 07/18/20 08:39 Dose: 12.5 mg Documented by: Ondansetron HCl (Ondansetron 4 Mg/2 Ml Vial) 4 mg IV Q8H PRN PRN PRN Reason: NAUSEA/VOMITING Pantoprazole Sodium (Pantoprazole Sodium 40 Mg Tablet) 40 mg PO DAILY [facility] Last Admin: 07/18/20 08:40 Dose: 40 mg Documented by: Risperidone (Risperidone 0.5 Mg Tablet) 1.5 mg PO QHS PILY Last Admin: 07/17/20 23:55 Dose: 1.5 mg Documented by: Senna/Docusate Sodium (Senna/Docusate Sodium 1 Tablet) 2 tablet PO BID PRN PRN Reason: Constipation Sodium Chloride (0.9% Saline Lock 10 Ml Syringe) 10 - 40 ml IV UD PRN PRN Reason: SALINE FLUSH Last Admin: 07/18/20 05:13 Dose: 10 ml Documented by: Clinical Impression(s) from Imaging Studies Chest X-Ray 07/17/20 20:00 IMPRESSION: Stable bilateral lower lobe infiltrates, right greater than left. Electronically Signed: Santino Navarrete, at 20:24 EST Tel , Service support , Medical Necessity - Tobacco Use Smoking Status: Former smoker Assessment/Plan All Active Problems (Last Reviewed 07/17/20 @ 22:[address] Yuan Singh MD) Severe sepsis (Acute) Acute respiratory disease (Acute) Acute bronchitis, unspecified (Acute) Acute respiratory failure with hypoxia and hypercapnia (Acute) COPD exacerbation (Acute) RECOMMENDATIONS: 1. Encourage low-salt diet 2. Discontinue antibiotics and steroids 3. Evaluation by urology 4. Okay to transition to [facility] status IMPRESSIONS: 1. Acute on chronic hypoxic respiratory failure Unclear etiology at this time. Patient does have COPD/asthma overlap syndrome at baseline. However, given the severity and rapid onset with rapid recovery, this is an unlikely etiology for this hospitalization. Patient may have had an element of flash pulmonary edema, but blood pressures were well controlled on her arrival. Patient does have a history of not taking her medications as prescribed. Patient may have had an issue with urinary retention leading to poor respiratory dynamics. However, this has already recovered in less than 12 hours. BiPAP overnight likely had marginal effect. 2. Right arm fracture This was present on admission and an incidental finding. This did not have to do with patient's admission to the hospital. Patient had suffered the fracture previously and had been seen in my office asking for surgical clearance. Patient currently awaiting surgical intervention. Patient would benefit from using local block given her lung disease. Pain is well controlled at this time. Okay to continue with orthopedic timetable from my perspective. 3. Diabetes mellitus/CARLO/hypertension/depression/history of tobacco use/obesity Complicates care, management, prognosis and recovery. Likely okay to continue with home medications for diabetes. Blood sugars may be transiently elevated secondary to Solu-Medrol. This should only be transient and does not indicate a need for change in diabetic medications. Okay to continue with blood pressure medications, but patient should be monitoring these closely as flash pulmonary edema secondary to hypertensive urgency would be a consideration. Patient did quit smoking 7 months ago, which should help her overall condition Inpatient E&M: 47999 Subs Hosp L3
--- NOTE | 2020-07-18 11:12 | CON.PCM_ITS ---
Problem List (1) Urinary retention Status: Acute Reason for Consult Date of Consultation: 07/18/20 Reason for Consultation: Urinary retention History of Present Illness: The patient is a 70 year old F [who was readmitted to the hospital with shortness of breath and found to have a postvoid residual of 1200 cc, and 1400 cc on straight cath. With emptying of the bladder her breathing has improved. She has a form of muscular dystrophy and she has had issues with urinary retention in the past. She was on intermittent cathing several years ago but has not had to do that recently. She denies constipation. She denies other voiding concerns today such as dysuria.] Past Medical History Past Medical History (Chronic Problems): Chronic Problems (Last Reviewed 07/17/20 @ 22:[address] 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 Per ANGELO @ [facility] 12/08/2018 Smoking (Chronic) Chronic respiratory failure (Chronic) On home oxygen Muscular dystrophy (Chronic) Hyponatremia (Chronic) Hypothyroidism (Chronic) COPD (chronic obstructive pulmonary disease) (Chronic) Depression (Chronic) [place] esophagus (Chronic) Postprandial bloating (Chronic) Anxiety (Chronic) Medical History: Medical History (Last Reviewed 07/18/20 @ 11:[address] 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 Per ANGELO @ [facility] 12/08/2018 COPD (chronic obstructive pulmonary disease) (Chronic) J44.9 Depression (Chronic) F32.9 Anxiety (Chronic) F41.9 Heart disease I51.9 History of constipation Z87.19 Lung disease J98.4 SOB (shortness of breath) R06.02 Allergies amoxicillin [Amoxicillin] Allergy (Intermediate, Verified 07/17/20 19:19) Rash gabapentin [From Neurontin] Allergy (Verified 07/17/20 19:19) Shortness of breath levofloxacin [From Levaquin] Allergy (Verified 07/17/20 19:19) Hives is allergic to the red dye in the pill form, states she is fine with the iv form. pseudoephedrine HCl [From Sudafed] Allergy (Verified 07/17/20 19:19) Shortness of breath red dye Allergy (Verified 07/17/20 19:19) Hives codeine Adverse Reaction (Verified 07/17/20 19:19) HEADACHE Home Medications: Ambulatory Orders Medication Instructions Recorded aspirin 81 mg tablet,delayed 81 mg PO DAILY #90 tablet. 04/20/19 release atorvastatin 80 mg tablet 80 mg PO QHS #90 tab 11/17/19 clopidogrel 75 mg tablet 75 mg PO DAILY #90 tab 11/21/19 losartan 25 mg tablet 25 mg PO DAILY #90 tab 12/01/19 nitroglycerin 0.4 mg sublingual 0.4 mg SUBLINGUAL ONCE #25 tab 12/01/19 tablet pantoprazole 40 mg tablet,delayed 40 mg PO DAILY #60 tab 01/17/20 release risperidone 1 mg tablet 1.5 mg PO QHS 90 Days #135 tab 01/17/20 Acetaminophen 1,000 mg PO TID PRN #1 tab 03/16/20 Ibuprofen 400 mg PO TID PRN #1 tab 03/16/20 bisacodyl 5 mg tablet,delayed 5 mg PO ONCE PRN #14 tab 05/09/20 release metformin 500 mg tablet,extended 1,000 mg PO QPM #180 tab 05/09/20 release 24 hr insulin glargine 100 unit/mL (3 46 unit SC QPM 05/17/20 mL) subcutaneous pen insulin lispro 100 unit/mL 15 unit SC TID #60 ml 05/17/20 subcutaneous pen alprazolam 0.5 mg tablet 0.5 mg PO DAILY PRN #30 tab 07/08/20 ipratropium 0.5 mg-albuterol 3 mg 3 ml INHALATION Q4H PRN PRN #180 ml 07/11/20 (2.5 mg base)/3 mL nebulization soln albuterol sulfate 90 mcg/actuation 2 puff INHALATION Q6H PRN #18 g 07/12/20 aerosol inhaler metoprolol tartrate 25 mg tablet 12.5 mg PO BID #90 tab 07/13/20 Citalopram [Celexa] 40 mg PO QHS 07/15/20 pen needle, diabetic 32 gauge x See Rx Instructions .ROUTE 07/16/20/32 .MEDSUPPLY #400 ea Furosemide [Lasix] 40 mg PO DAILY #30 tab 07/17/20 Surgical History: Surgical History (Last Reviewed 07/18/20 @ 11:[address] 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 Successful PTCA/RACHEL mid LAD with a 2.5 x 20 Promus Synergy, post dilated with a 2.5 x 12 NC Balloon after DIAG stent deployed; 75%-->0%, no dissection. 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 Sofia Castellon MD) Brother Heart disease Mother Colon cancer Heart disease History Items: Heart Disease - Brother of massive ND at age 50 Maternal Family History: Family History (Last Reviewed 07/18/20 @ 11:[address] Sofia Castellon MD) Brother Heart disease Mother Colon cancer Heart disease History Items: Heart Disease Paternal Family History: Family History (Last Reviewed 07/18/20 @ 11:[address] Sofia Castellon MD) Brother Heart disease Mother Colon cancer Heart disease History Items: Pulmonary Disease Review of Systems Constitutional: Denies: Anorexia, Chills, Fever Eyes: Denies: Vision Change HEENT: Denies: Visual Changes Cardiovascular: Denies: Chest Pain Respiratory: Reports: Shortness of Breath Gastrointestinal: Denies: Abdominal Pain, Nausea Genitourinary: Reports: Retention, Urgency. Denies: Dysuria, Frequency Gynecological: Denies: Vaginal discharge, Vaginal itching Musculoskeletal: Denies: Muscle pain Skin: Denies: Wounds Neurological: Denies: Difficulty swallowing Endocrine: Denies: Change in Body Habitus Patient Problems: Active and Suspected Problems (Last Reviewed 07/17/20 @ 22:[address] Yuan Singh MD) Severe sepsis (Acute) Acute respiratory disease (Acute) Acute bronchitis, unspecified (Acute) Acute respiratory failure with hypoxia and hypercapnia (Acute) COPD exacerbation (Acute) - Physical Exam Vitals/I&O's: Vital Signs Temp Pulse Resp BP Pulse Ox 96.8 F L 63 17 103/47 L 100 07/18/20 08:00 07/18/20 10:00 07/18/20 10:00 07/18/20 10:00 07/18/20 10:00 Oxygen Flow Rate (L/min) 4 Oxygen Delivery Method Nasal Cannula Weight: 95.9 kg Body Mass Index (BMI) 39.2 Finger Stick Blood Glucose 552 Intake and Output for Last 24 Hours 07/16/20 07/17/20 07/18/20 23:59 23:59 23:59 Intake Total 100 / 100 1090 / 1090 Output Total 1400 / 1400 1775 / 1775 Balance -1300 / -1300 -685 / -685 General: Alert, Oriented x3, Cooperative, No apparent distress HEENT: Atraumatic Oral: Moist Mucosa Neck: Supple, Trachea Midline Cardiovascular: Regular rate Abdomen: Soft, Non Tender Skin: No rashes Musculoskeletal: No Muscle Wasting Neurological: Cranial nerves II-XII grossly intact, Neuro grossly intact Psych/Mental Status: Normal Affect, Alert and oriented to time, place, person, mood and affect Microbiology Past 72 Hours 07/17/20 23:30 Urine Catheter - Catheter Legionella Antigen - Final 07/17/20 23:30 Urine Catheter - Catheter Streptococcus pneumoniae Antigen (M - Final 07/17/20 19:39 Mucosa - Nose SARS-CoV-2 Antigen (Rapid) - Final Laboratory Results 07/17/20 19:29: WBC 24.5 H, RBC 4.19 L, Hgb 11.8 L, Hct 36.7 L, MCV 87.6, MCH 28.2, MCHC 32.2, RDW Std Deviation 38.5, RDW Coeff of Mal[place] 12.0, Plt Count 680 H, MPV 11.1, Immature Gran % (Auto) 0.900, Neut % (Auto) 68.2, Lymph % (Auto) 20.9, [place] % (Auto) 7.0, Eos % (Auto) 2.3, Baso % (Auto) 0.7, Absolute Neuts (auto) 16.7 H, Absolute Lymphs (auto) 5.13 H, Nucleated RBC % 0, Differential Comment COMMENT, Diff Path Review December07/17/20 19:29: PT 13.3, INR 1.1, APTT 26.6 07/17/20 19:29: Sodium 129 L, Potassium 4.0, Chloride 89 L, Carbon Dioxide 32.0, Anion Gap 8, BUN 22 H, Creatinine 0.97, Estim Creat Clear Calc 43.29, Est GFR (MDRD) Af Amer 73, Est GFR (MDRD) Non-Af 60, BUN/Creatinine Ratio 22.6 H, Glucose 191 H, Calcium 8.6, Total Bilirubin 0.40, AST 36, ALT 25, Alkaline Phosphatase 164 H, Troponin I 0.233 H, Total Protein 7.4, Albumin 3.5, Globulin 3.9, Albumin/Globulin Ratio 0.9 07/17/20 19:29: Lactic Acid 2.2 H* 07/17/20 23:05: MRSA (PCR) Negative 07/17/20 23:30: Urine Color Yellow, Urine Clarity Clear, Urine pH 6.0, Ur Specific [place] 1.010, Urine Protein Negative, Urine Glucose (UA) Normal, Urine Ketones Negative, Urine Occult Blood Negative, Urine Nitrite Negative, Urine Bilirubin Negative, Urine Urobilinogen Normal, Ur Leukocyte Esterase Negative, Urine RBC 0 SEEN, Urine WBC 0 SEEN, Ur Squamous Epith Cells 0 SEEN, Urine Bacteria RARE, Urine Mucus 0 SEEN 07/17/20 23:45: Troponin I 0.483 H 07/17/20 23:45: Lactic Acid 1.4 07/18/20 00:03: POC Glucose 191 H 07/18/20 00:41: Specimen Type ART, Sample Site L Radial, pH 7.44, Bicarbonate Actual 28.3 H, Total CO2 30, Base Excess 4 H, O2 Saturation 95, O2 % 25, ABG pCO2 41.3, ABG pO2 75, Dima Test Positive, Respiration Rate 12, O2 Delivery Device BiPAP, POC PEEP 8 07/18/20 01:25: Troponin I 0.403 H 07/18/20 03:50: Sodium 130 L, Potassium 4.2, Chloride 94 L, Carbon Dioxide 31.0, Anion Gap 5, BUN 19 H, Creatinine 0.82, Estim Creat Clear Calc 51.21, Est GFR (MDRD) Af Amer 89, Est GFR (MDRD) Non-Af 73, BUN/Creatinine Ratio 23.1 H, Glucose 291 H, Calcium 8.3 L, Total Bilirubin 0.40, AST 30, ALT 26, Alkaline Phosphatase 130 H, Total Protein 6.5, Albumin 2.9 L, Globulin 3.6, Albumin/Glob ulin Ratio 0.8 L 07/18/20 03:50: WBC 9.9, RBC 3.61 L, Hgb 10.1 L, Hct 31.0 L, MCV 85.9, MCH 28.0, MCHC 32.6, RDW Std Deviation 37.6, RDW Coeff of [place] 12.0, Plt Count 382, MPV 10.8, Immature Gran % (Auto) 0.600, Neut % (Auto) 90.9 H, Lymph % (Auto) 6.5 L, [place] % (Auto) 1.5, Eos % (Auto) 0.3, Baso % (Auto) 0.2, Absolute Neuts (auto) 9.0 H, Absolute Lymphs (auto) 0.64 L, Nucleated RBC % 0 07/18/20 08:33: POC Glucose 363 H Current Medications Acetaminophen (Acetaminophen 500 Mg Tablet) 1,000 mg PO TID PRN PRN Reason: Pain 1-10 or Fever Albuterol Sulfate (Albuterol 2.5 Mg/3 Ml Vial.Neb.) 2.5 mg INHALATION Q2H PRN PRN PRN Reason: SOB/Wheezing Albuterol/Ipratropium (Ipratropium/Albuterol Sulfate 3 Ml Ampul.Neb) 3 ml INHALATION Q4HWA.RT PILY Last Admin: 07/18/20 07:46 Dose: 3 ml Documented by: Alprazolam (Alprazolam 0.5 Mg Tablet) 0.5 mg PO DAILY PRN PRN Reason: ANXIETY Last Admin: 07/17/20 23:54 Dose: 0.5 mg Documented by: Aspirin (Aspirin E.C. 81 Mg Tablet) 81 mg PO DAILYCM [facility] Last Admin: 07/18/20 08:38 Dose: 81 mg Documented by: Atorvastatin Calcium (Atorvastatin Calcium 80 Mg Tablet) 80 mg PO QHS [facility] Last Admin: 07/17/20 23:54 Dose: 80 mg Documented by: Benzonatate (Benzonatate 100 Mg Capsule) 100 mg PO Q6H PRN PRN PRN Reason: COUGH Bisacodyl (Bisacodyl 5 Mg Tablet) 5 mg PO X1 PRN PRN Reason: constipation Citalopram Hydrobromide (Citalopram 40 Mg Tablet) 40 mg PO QHS [facility] Last Admin: 07/17/20 23:54 Dose: 40 mg Documented by: Clopidogrel Bisulfate (Clopidogrel Bisulfate 75 Mg Tablet) 75 mg PO DAILY [facility] Last Admin: 07/18/20 10:04 Dose: 75 mg Documented by: Dextrose (Dextrose 50%-Water 25 Gm/50 Ml Disp.Syrin) 0 gm IV X1 PRN; Protocol PRN Reason: Hypoglycemia Enoxaparin Sodium (Enoxaparin 40 Mg/0.4 Ml Syringe) 40 mg SC DAILY [facility] Last Admin: 07/18/20 08:39 Dose: 40 mg Documented by: Furosemide (Furosemide 40 Mg Tablet) 40 mg PO DAILY [facility] Last Admin: 07/18/20 08:39 Dose: 40 mg Documented by: Glucagon (Glucagon 1 Mg/Ml Syringe) 1 mg IM .X1 PRN PRN Reason: Hypoglycemia Sodium Chloride () 250 mls @ 15 mls/hr IV .[id number] PRN PRN Reason: Saline Flush Sodium Chloride () 250 mls @ 15 mls/hr IV .[id number] PRN PRN Reason: Additional IVPB Infusion Insulin Glargine (Insulin Glargine 100 Units/Ml Pen) 46 units SC QHS [facility] Insulin Human Lispro (Insulin Lispro 100 Unit/Ml Insuln.Pen) 12 unit SC 0800,1200,1700 [facility] Last Admin: 07/18/20 08:36 Dose: 12 u Documented by: Insulin Human Lispro (Insulin Lispro 100 Unit/Ml Insuln.Pen) 0 unit SC [facility]; Protocol Last Admin: 07/18/20 08:35 Dose: 8 u Documented by: Losartan Potassium (Losartan Potassium 25 Mg Tablet) 25 mg PO DAILY [facility] Last Admin: 07/18/20 08:38 Dose: 25 mg Documented by: Melatonin (Melatonin 3 Mg Tablet) 3 mg PO QHS PRN PRN PRN Reason: INSOMNIA Metoprolol Tartrate (Metoprolol Tartrate 25 Mg Tablet) 12.5 mg PO BID [facility] Last Admin: 07/18/20 08:39 Dose: 12.5 mg Documented by: Ondansetron HCl (Ondansetron 4 Mg/2 Ml Vial) 4 mg IV Q8H PRN PRN PRN Reason: NAUSEA/VOMITING Pantoprazole Sodium (Pantoprazole Sodium 40 Mg Tablet) 40 mg PO DAILY [facility] Last Admin: 07/18/20 08:40 Dose: 40 mg Documented by: Risperidone (Risperidone 0.5 Mg Tablet) 1.5 mg PO QHS [facility] Last Admin: 07/17/20 23:55 Dose: 1.5 mg Documented by: Senna/Docusate Sodium (Senna/Docusate Sodium 1 Tablet) 2 tablet PO BID PRN PRN Reason: Constipation Sodium Chloride (0.9% Saline Lock 10 Ml Syringe) 10 - 40 ml IV UD PRN PRN Reason: SALINE FLUSH Last Admin: 07/18/20 05:13 Dose: 10 ml Documented by: Assessment/Plan All Active Problems (Last Reviewed 07/17/20 @ 22:[address] Yuan Singh MD) Severe sepsis (Acute) Acute respiratory disease (Acute) Urinary retention (Acute) Acute bronchitis, unspecified (Acute) Acute respiratory failure with hypoxia and hypercapnia (Acute) COPD exacerbation (Acute) Billings catheter to straight drain. Patient will continue to keep Billings catheter until Wednesday night. The Billings will be removed and she will present to the office on Wednesday for post void residual check. Urine culture today. Avoid constipation. She continues to have urinary retention on Wednesday, the plan will be to proceed with cystoscopy and urodynamics. Renal ultrasound to ensure no evidence of hydronephrosis From urology standpoint, can be discharged home after ultrasound and Billings catheter. Thank you for the consultation.
--- NOTE | 2020-07-18 11:17 | US_ITS ---
HISTORY: HISTORY: URINARY RETENTION TECHNIQUE: Ultrasound examination of the kidneys and bladder with b-mode, duplex, and color doppler. COMPARISON: None FINDINGS: # of images incl. paperwork: 71 Sonographers comments of the exam was difficult due to patient being hypoxic and unable to refrain from breathing during image acquisition Right Kidney: Is normal in size and shape The right kidney measures 12 x 5.4 x 5.8 cm. There is no evidence of renal mass or cyst. There is no right hydronephrosis. Left Kidney: Is normal in size and shape. The left kidney measures 12.1 x 4.6 x 5.5 cm. There is no evidence of renal mass or cyst. There is no left hydronephrosis. Bladder: Decompressed with a Billings catheter. US/Kidney and Bladder IMPRESSION: Normal renal ultrasound. at [id number] Reported and signed by: Shad Barraza MD Electronically Signed: Shad Barraza MD at 23:56 EST Tel , Service support ,
--- NOTE | 2020-07-18 11:25 | PN_ITS ---
Patient Problems: Active and Suspected Problems (Last Reviewed 07/18/20 @ 11:[address] Sofia Castellon MD) Severe sepsis (Acute) Acute respiratory disease (Acute) Urinary retention (Acute) Acute bronchitis, unspecified (Acute) Acute respiratory failure with hypoxia and hypercapnia (Acute) COPD exacerbation (Acute) Subjective: Doing well. She is afebrile, she does not have a leukocytosis. It was found that all of her issues were secondary to significant urinary retention Vitals/I&O's: Vital Signs Temp Pulse Resp BP Pulse Ox 96.8 F L 63 17 103/47 L 100 07/18/20 08:00 07/18/20 10:00 07/18/20 10:00 07/18/20 10:00 07/18/20 10:00 Oxygen Flow Rate (L/min) 4 Oxygen Delivery Method Nasal Cannula Weight: 211 lb 6.773 oz Body Mass Index (BMI) 39.2 Finger Stick Blood Glucose 552 Intake and Output for Last 24 Hours 07/16/20 07/17/20 07/18/20 23:59 23:59 23:59 Intake Total 100 / 100 1090 / 1090 Output Total 1400 / 1400 1775 / 1775 Balance -1300 / -1300 -685 / -685 General: Alert, Oriented x3, Cooperative, No apparent distress HEENT: Atraumatic, PERRLA, EOMI, Normocephalic Oral: Moist Mucosa Neck: Supple, No JVD Lungs: Clear to auscultation, Normal air movement, No rhonchi, No wheeze, No rales, Diminished Cardiovascular: Regular rate, Regular Rhythm, Normal S1, Normal S2, No murmurs Abdomen: Soft, Non Tender, Non-Distended, No Hepato-splenomegaly Extremities: No edema, Capillary Refill Less than 3 Seconds Skin: No rashes, No breakdown Neurological: Neuro grossly intact, Sensory exam intact to light touch and pain Psych/Mental Status: Normal Affect, Appropriate Microbiology Past 72 Hours 07/17/20 23:30 Urine Catheter - Catheter Legionella Antigen - Final 07/17/20 23:30 Urine Catheter - Catheter Streptococcus pneumoniae Antigen (M - Final 07/17/20 19:39 Mucosa - Nose SARS-CoV-2 Antigen (Rapid) - Final Laboratory Results 07/17/20 19:29: WBC 24.5 H, RBC 4.19 L, Hgb 11.8 L, Hct 36.7 L, MCV 87.6, MCH 28.2, MCHC 32.2, RDW Std Deviation 38.5, RDW Coeff of [place] 12.0, Plt Count 680 H, MPV 11.1, Immature Gran % (Auto) 0.900, Neut % (Auto) 68.2, Lymph % (Auto) 20.9, [place] % (Auto) 7.0, Eos % (Auto) 2.3, Baso % (Auto) 0.7, Absolute Neuts (auto) 16.7 H, Absolute Lymphs (auto) 5.13 H, Nucleated RBC % 0, Differential Comment COMMENT, Diff Path Review December07/17/20 19:29: PT 13.3, INR 1.1, APTT 26.6 07/17/20 19:29: Sodium 129 L, Potassium 4.0, Chloride 89 L, Carbon Dioxide 32.0, Anion Gap 8, BUN 22 H, Creatinine 0.97, Estim Creat Clear Calc 43.29, Est GFR (MDRD) Af Amer 73, Est GFR (MDRD) Non-Af 60, BUN/Creatinine Ratio 22.6 H, Glucose 191 H, Calcium 8.6, Total Bilirubin 0.40, AST 36, ALT 25, Alkaline Phosphatase 164 H, Troponin I 0.233 H, Total Protein 7.4, Albumin 3.5, Globulin 3.9, Albumin/Globulin Ratio 0.9 07/17/20 19:29: Lactic Acid 2.2 H* 07/17/20 23:05: MRSA (PCR) Negative 07/17/20 23:30: Urine Color Yellow, Urine Clarity Clear, Urine pH 6.0, Ur Specific [place] 1.010, Urine Protein Negative, Urine Glucose (UA) Normal, Urine Ketones Negative, Urine Occult Blood Negative, Urine Nitrite Negative, Urine Bilirubin Negative, Urine Urobilinogen Normal, Ur Leukocyte Esterase Negative, Urine RBC 0 SEEN, Urine WBC 0 SEEN, Ur Squamous Epith Cells 0 SEEN, Urine Bacteria RARE, Urine Mucus 0 SEEN 07/17/20 23:45: Troponin I 0.483 H 07/17/20 23:45: Lactic Acid 1.4 07/18/20 00:03: POC Glucose 191 H 07/18/20 00:41: Specimen Type ART, Sample Site L Radial, pH 7.44, Bicarbonate Actual 28.3 H, Total CO2 30, Base Excess 4 H, O2 Saturation 95, O2 % 25, ABG pCO2 41.3, ABG pO2 75, Dima Test Positive, Respiration Rate 12, O2 Delivery Device BiPAP, POC PEEP 8 07/18/20 01:25: Troponin I 0.403 H 07/18/20 03:50: Sodium 130 L, Potassium 4.2, Chloride 94 L, Carbon Dioxide 31.0, Anion Gap 5, BUN 19 H, Creatinine 0.82, Estim Creat Clear Calc 51.21, Est GFR (MDRD) Af Amer 89, Est GFR (MDRD) Non-Af 73, BUN/Creatinine Ratio 23.1 H, Glucos e 291 H, Calcium 8.3 L, Total Bilirubin 0.40, AST 30, ALT 26, Alkaline Phosphatase 130 H, Total Protein 6.5, Albumin 2.9 L, Globulin 3.6, Albumin/Globulin Ratio 0.8 L 07/18/20 03:50: WBC 9.9, RBC 3.61 L, Hgb 10.1 L, Hct 31.0 L, MCV 85.9, MCH 28.0, MCHC 32.6, RDW Std Deviation 37.6, RDW Coeff of [place] 12.0, Plt Count 382, MPV 10.8, Immature Gran % (Auto) 0.600, Neut % (Auto) 90.9 H, Lymph % (Auto) 6.5 L, [place] % (Auto) 1.5, Eos % (Auto) 0.3, Baso % (Auto) 0.2, Absolute Neuts (auto) 9.0 H, Absolute Lymphs (auto) 0.64 L, Nucleated RBC % 0 07/18/20 08:33: POC Glucose 363 H Current Medications Acetaminophen (Acetaminophen 500 Mg Tablet) 1,000 mg PO TID PRN PRN Reason: Pain 1-10 or Fever Albuterol Sulfate (Albuterol 2.5 Mg/3 Ml Vial.Neb.) 2.5 mg INHALATION Q2H PRN PRN PRN Reason: SOB/Wheezing Albuterol/Ipratropium (Ipratropium/Albuterol Sulfate 3 Ml Ampul.Neb) 3 ml INHALATION Q4HWA.RT PILY Last Admin: 07/18/20 07:46 Dose: 3 ml Documented by: Alprazolam (Alprazolam 0.5 Mg Tablet) 0.5 mg PO DAILY PRN PRN Reason: ANXIETY Last Admin: 07/17/20 23:54 Dose: 0.5 mg Documented by: Aspirin (Aspirin E.C. 81 Mg Tablet) 81 mg PO DAILYCM [facility] Last Admin: 07/18/20 08:38 Dose: 81 mg Documented by: Atorvastatin Calcium (Atorvastatin Calcium 80 Mg Tablet) 80 mg PO QHS [facility] Last Admin: 07/17/20 23:54 Dose: 80 mg Documented by: Benzonatate (Benzonatate 100 Mg Capsule) 100 mg PO Q6H PRN PRN PRN Reason: COUGH Bisacodyl (Bisacodyl 5 Mg Tablet) 5 mg PO X1 PRN PRN Reason: constipation Citalopram Hydrobromide (Citalopram 40 Mg Tablet) 40 mg PO QHS [facility] Last Admin: 07/17/20 23:54 Dose: 40 mg Documented by: Clopidogrel Bisulfate (Clopidogrel Bisulfate 75 Mg Tablet) 75 mg PO DAILY [facility] Last Admin: 07/18/20 10:04 Dose: 75 mg Documented by: Dextrose (Dextrose 50%-Water 25 Gm/50 Ml Disp.Syrin) 0 gm IV X1 PRN; Protocol PRN Reason: Hypoglycemia Enoxaparin Sodium (Enoxaparin 40 Mg/0.4 Ml Syringe) 40 mg SC DAILY [facility] Last Admin: 07/18/20 08:39 Dose: 40 mg Documented by: Furosemide (Furosemide 40 Mg Tablet) 40 mg PO DAILY [facility] Last Admin: 07/18/20 08:39 Dose: 40 mg Documented by: Glucagon (Glucagon 1 Mg/Ml Syringe) 1 mg IM .X1 PRN PRN Reason: Hypoglycemia Sodium Chloride () 250 mls @ 15 mls/hr IV .[id number] PRN PRN Reason: Saline Flush Sodium Chloride () 250 mls @ 15 mls/hr IV .[id number] PRN PRN Reason: Additional IVPB Infusion Insulin Glargine (Insulin Glargine 100 Units/Ml Pen) 46 units SC QHS [facility] Insulin Human Lispro (Insulin Lispro 100 Unit/Ml Insuln.Pen) 12 unit SC 0800,1200,1700 [facility] Last Admin: 07/18/20 08:36 Dose: 12 u Documented by: Insulin Human Lispro (Insulin Lispro 100 Unit/Ml Insuln.Pen) 0 unit SC ACHS [facility]; Protocol Last Admin: 07/18/20 08:35 Dose: 8 u Documented by: Losartan Potassium (Losartan Potassium 25 Mg Tablet) 25 mg PO DAILY [facility] Last Admin: 07/18/20 08:38 Dose: 25 mg Documented by: Melatonin (Melatonin 3 Mg Tablet) 3 mg PO QHS PRN PRN PRN Reason: INSOMNIA Metoprolol Tartrate (Metoprolol Tartrate 25 Mg Tablet) 12.5 mg PO BID [facility] Last Admin: 07/18/20 08:39 Dose: 12.5 mg Documented by: Ondansetron HCl (Ondansetron 4 Mg/2 Ml Vial) 4 mg IV Q8H PRN PRN PRN Reason: NAUSEA/VOMITING Pantoprazole Sodium (Pantoprazole Sodium 40 Mg Tablet) 40 mg PO DAILY [facility] Last Admin: 07/18/20 08:40 Dose: 40 mg Documented by: Risperidone (Risperidone 0.5 Mg Tablet) 1.5 mg PO QHS [facility] Last Admin: 07/17/20 23:55 Dose: 1.5 mg Documented by: Senna/Docusate Sodium (Senna/Docusate Sodium 1 Tablet) 2 tablet PO BID PRN PRN Reason: Constipation Sodium Chloride (0.9% Saline Lock 10 Ml Syringe) 10 - 40 ml IV UD PRN PRN Reason: SALINE FLUSH Last Admin: 07/18/20 05:13 Dose: 10 ml Documented by: STROKE Vital Signs/Narrative: Vital Signs Temp Pulse Resp BP BP Pulse Ox 07/18/20 10:00 63 17 103/47 L 100 07/18/20 09:00 63 16 93/57 L 99 07/18/20 08:39 81 122/59 H 07/18/20 08:00 96.8 F L 71 22 H 122/59 H 99 07/18/20 07:46 83 20 H 100 Medical Necessity - Tobacco Use Smoking Status: Former smoker Assessment/Plan All Active Problems (Last Reviewed 07/18/20 @ 11:[address] Sofia Castellon MD) Severe sepsis (Acute) Acute respiratory disease (Acute) Urinary retention (Acute) Acute bronchitis, unspecified (Acute) Acute respiratory failure with hypoxia and hypercapnia (Acute) COPD exacerbation (Acute) 1. Acute on chronic hypoxic respiratory failure secondary to possibly flash pulmonary edema/COPD?asthma overlap syndrome/significant urinary retention -Echo from 1 year ago with a normal EF and stage I diastolic dysfunction with an elevated pulmonary artery pressure 39 mmHg -Echo on her previous admission was consistent with her last echo -It was found that she had elevated postvoid residuals of 1214 100 cc on straight cath. She is to have to straight cath intermittently which she says that she has not had to do recently. Once her bladder was emptied all of her symptoms resolved. She no longer had any chest pain or shortness of breath and she was taken off of her BiPAP and was tolerating oxygen at her home 4 L -Her rapid deterioration in rapid recovery is unlikely to be secondary to COPD. Continue with inhalers -She will have a renal ultrasound today as well as a Billings catheter placed. Per urology, she can remove the Billings on Wednesday night and will present to the office on Wednesday for a post void residual. Will be managed as an outpatient at that point. 2. CAD status post CABG/HTN/HLD/elevated troponins -Recent echo which was unremarkable. Her elevated troponins were likely secondary to demand from her urinary retention and her tachypnea tachycardia -Pressure is stable, continue with her losartan and metoprolol -Can you with oral Lasix on discharge. -Continue with aspirin and Plavix 3. DM 2 -We will continue with her Metformin as well as home insulin -Accu-Cheks AC at bedtime 4. GERD -Stable -Continue with PPI 5. Anxiety/depression -Stable -Continue with Xanax, Celexa, risperidone 6. She does not have severe sepsis or pneumonia the findings on x-ray are likely consistent with atelectasis. Antibiotics can be discontinued her white count has completely resolved and her symptoms have resolved with straight cathing of the bladder. Therefore this was likely the main issue and not anything to do with an infection. DVT: Lovenox Inpatient E&M: 81387 Subs Hosp L2
[2020-07-18 12:08] LABS: Pathologist Review Reviewed
[2020-07-18 12:11] LABS: Bedside Glucose 357 mg/dL (70-110)
--- NOTE | 2020-07-18 12:31 | NURSING ---
Patient voided 300cc and denied urge to void after. Billings catheter inserted 5 minutes later, 500cc drained immediately.
[2020-07-18] MEDS: Acetaminophen 500 MG Tablet 1000 MG PO (13:39)
[2020-07-18] MEDS: ALPRAZolam 0.5 MG Tablet PO (13:40)
--- NOTE | 2020-07-18 16:41 | CASEMGMT ---
Readmission Note DC Date: 07/17/2020 DC Diagnosis: COPD Exacerbation DC Disposition: Home with family support from DIL Current Admission Admission Date: 07/17/2020 Admission Diagnosis: Resp Failure r/t flash pulm edema, urinary retention The patient was reportedly eating dinner when she had sudden onset of shortness of breath, dry cough and R rib pain. Bipap was placed, ER physician documenting CXR showed carolyne pneumonia. cultures drawn, lactic acid 2.2 and Na 129. Patient required a patel for urine retention and Urology consult was placed. If pt contineus to have urinary retention, will need cystoscopy. Patient was admitted to ICU and was placed on 15L with Bipap. Patient wears 4L NC @ home. DC PLAN: anticipate return home with family support. Will need continued teaching re: diet, NA intake. Grace CHAWLAN RN ACM
[2020-07-18 17:11] LABS: Bedside Glucose 264 mg/dL (70-110)
[2020-07-18] MEDS: Atorvastatin Calcium 80 MG Tablet PO (21:26)
[2020-07-18] MEDS: RisperiDONE 0.5 MG Tablet 1.5 MG PO (21:26)
[2020-07-18] MEDS: Citalopram 40 MG TABLET PO (21:26)
[2020-07-18 22:05] LABS: Bedside Glucose 352 mg/dL (70-110)
[2020-07-19 01:00] VITALS: BP 114/58; PULSE 65; RESP 18; TEMP 36.1; O2SAT 99
[2020-07-19 06:46] VITALS: PULSE 82; RESP 20; O2SAT 99
[2020-07-19] MEDS: Ipratropium/Albuterol Sulfate 3 ML AMPUL.NEB INHALATION ×2 (06:46→10:59)
[2020-07-19 06:52] VITALS: BP 110/46; PULSE 65; RESP 15; TEMP 36.6; O2SAT 99
[2020-07-19] MEDS: Bisacodyl 5 MG Tablet PO (06:53)
[2020-07-19 07:43] LABS: Anion Gap 5 (5-15); BUN 24 mg/dL (7-18); BUN/Creat Ratio 29.4 RATIO (10-20); Calcium,Total 8.4 mg/dL (8.5-10.1); Chloride 98 mmol/L (98-107); Creatinine, Serum 0.82 mg/dL (0.55-1.02); EST Glomerular Filtration Rate 74 mL/min (>60); Est Glom Filt Rate - Afr Amer 89 mL/min (>60); Estimated Creatinine Clearance 51.21 ml/min; Glucose 191 mg/dL (74-106); Potassium 3.7 mmol/L (3.5-5.1); Sodium Level 134 mmol/L (136-145)
[2020-07-19 10:11] LABS: Bedside Glucose 215 mg/dL (70-110)
[2020-07-19 10:14] VITALS: BP 124/67; PULSE 72; RESP 20; TEMP 36.6; O2SAT 97
[2020-07-19] MEDS: Insulin Lispro 100 UNIT/ML INSULN.PEN SC (10:18)
[2020-07-19] MEDS: Insulin Lispro 100 UNIT/ML INSULN.PEN 12 UNIT SC (10:18)
[2020-07-19] MEDS: Losartan Potassium 25 MG Tablet PO (10:19)
[2020-07-19] MEDS: Aspirin E.C. 81 MG Tablet PO (10:19)
[2020-07-19 10:20] VITALS: PULSE 72
[2020-07-19] MEDS: Metoprolol Tartrate 25 MG Tablet 12.5 MG PO (10:20)
[2020-07-19] MEDS: Enoxaparin 40 MG/0.4 ML Syringe SC (10:20)
[2020-07-19] MEDS: Clopidogrel Bisulfate 75 MG Tablet PO (10:20)
[2020-07-19] MEDS: Furosemide 40 MG Tablet PO (10:20)
--- NOTE | 2020-07-19 10:20 | PCM.DC ---
- Discharge Diagnoses Current Active Problems: Current Active and Chronic Problems (Last Reviewed 07/18/20 @ 11:[address] Sofia Castellon MD) Diabetes mellitus with hyperglycemia (Chronic) Severe sepsis (Acute) Acute respiratory disease (Acute) Urinary retention (Acute) Asthma with COPD (Chronic) FEV1 65% Obesity (Chronic) Acute bronchitis, unspecified (Acute) GERD (gastroesophageal reflux disease) (Chronic) Type 2 diabetes mellitus (Chronic) Generalized anxiety disorder (Chronic) Diabetes (Chronic) Dermatomyositis (Chronic) Acute respiratory failure with hypoxia and hypercapnia (Acute) COPD exacerbation (Acute) Hypertension (Chronic) Atherosclerotic heart disease of [place] coronary artery without angina pectoris (Chronic) Double vessel CAD of the LAD and DIAG#2 Successful PTCA/RACHEL ostial DIAG with a 2.25 x 12 Promus Synergy stent; Successful PTCA/RACHEL mid LAD with a 2.5 x 20 Promus Synergy. Per ANGELO @ [facility] 12/08/2018 Smoking (Chronic) Chronic respiratory failure (Chronic) On home oxygen Muscular dystrophy (Chronic) Hyponatremia (Chronic) Hypothyroidism (Chronic) COPD (chronic obstructive pulmonary disease) (Chronic) Depression (Chronic) [place] esophagus (Chronic) Postprandial bloating (Chronic) Anxiety (Chronic) You will use the following diet at home:: Calorie/Carbohydrate Controlled (specify 1200, 1400, etc), Cardiac Your food should be the consistency of: Regular Your liquids should be the consistency of: Regular/Thin Discharge Activity: Return to Normal Activity Call your doctor if you observe: Fever of 101 or Higher, Shortness of breath, Dizziness, Fainting spells, Swelling in the ankles, Chest pain, Increased palpitations (irregular heartbeat) Additional Instructions: Follow-up with your PCP in 3 to 5 days to obtain a BMP to monitor your kidney function. Also you have an appointment with urology on Wednesday. On Wednesday night you are to remove your Billings catheter and follow-up in the urologist office for further examination and management. Allergies/Adverse Reactions: Allergies amoxicillin [Amoxicillin] Allergy (Intermediate, Verified 07/17/20 19:19) Rash gabapentin [From Neurontin] Allergy (Verified 07/17/20 19:19) Shortness of breath levofloxacin [From Levaquin] Allergy (Verified 07/17/20 19:19) Hives is allergic to the red dye in the pill form, states she is fine with the iv form. pseudoephedrine HCl [From Sudafed] Allergy (Verified 07/17/20 19:19) Shortness of breath red dye Allergy (Verified 07/17/20 19:19) Hives codeine Adverse Reaction (Verified 07/17/20 19:19) HEADACHE Medications to take at Discharge aspirin 81 mg tablet,delayed release 81 mg PO DAILY #90 tablet. 04/20/19 atorvastatin 80 mg tablet 80 mg PO QHS #90 tab 11/17/19 clopidogrel 75 mg tablet 75 mg PO DAILY #90 tab 11/21/19 losartan 25 mg tablet 25 mg PO DAILY #90 tab 12/01/19 nitroglycerin 0.4 mg sublingual tablet 0.4 mg SUBLINGUAL ONCE #25 tab 12/01/19 pantoprazole 40 mg tablet,delayed release 40 mg PO DAILY #60 tab 01/17/20 risperidone 1 mg tablet 1.5 mg PO QHS 90 Days #135 tab 01/17/20 Acetaminophen 1,000 mg PO TID PRN #1 tab 03/16/20 Ibuprofen 400 mg PO TID PRN #1 tab 03/16/20 bisacodyl 5 mg tablet,delayed release 5 mg PO ONCE PRN #14 tab 05/09/20 metformin 500 mg tablet,extended release 24 hr 1,000 mg PO QPM #180 tab 05/09/20 insulin glargine 100 unit/mL (3 mL) subcutaneous pen 46 unit SC QPM 05/17/20 insulin lispro 100 unit/mL subcutaneous pen 15 unit SC TID #60 ml 05/17/20 alprazolam 0.5 mg tablet 0.5 mg PO DAILY PRN #30 tab 07/08/20 ipratropium 0.5 mg-albuterol 3 mg (2.5 mg base)/3 mL nebulization soln 3 ml INHALATION Q4H PRN PRN #180 ml 07/11/20 albuterol sulfate 90 mcg/actuation aerosol inhaler 2 puff INHALATION Q6H PRN #18 g 07/12/20 metoprolol tartrate 25 mg tablet 12.5 mg PO BID #90 tab 07/13/20 Citalopram [Celexa] 40 mg PO QHS 07/15/20 pen needle, diabetic 32 gauge x See Rx Instructions .ROUTE .MEDSUPPLY #400 ea 07/16/20 Furosemide [Lasix] 20 mg PO DAILY #30 tab 07/19/20 Primary Care Physician: Billy Madera MD [Primary Care Provider] - Please follow up with your Primary Care Physician in: 3-5 days Test Results: Test results from this visit will be discussed in further detail at your follow-up appointment, if applicable. Please Follow Up With: Sofia Castellon MD When: Wednesday
[2020-07-19 10:59] VITALS: PULSE 81; RESP 16
--- NOTE | 2020-07-19 11:56 | NURSING ---
Attempted to give teaching regarding patel catheter and changing to leg bag/removal of patel Wednesday. Patient states she would like her daughter in law to be present for teaching d/t decreased mobility of right arm r/t elbow fx. Patient's daughter in law arrives to room and is adamant that she will not remove the patel. She states this makes her very uncomfortable and she will not do it. Encouragement was provided by this RN and an attempt to just demonstrate the procedure to patient and daughter in law but they continue to refuse. A call was placed by [facility] to [facility] to remove patel. This RN also called Dr. Castellon's office to see if someone could remove patel early AM Wednesday and then continue with voiding trials in the afternoon when her appointment is. Awaiting call back.
--- NOTE | 2020-07-19 12:42 | NURSING ---
Dr. Castellon's office called and patient will have patel removed at wednesday appt and follow up wednesday.
--- NOTE | 2020-07-19 19:05 | DS.PCM_ITS ---
Discharge Date and Diagnosis - Problem List Patient Problems: Active and Suspected Problems (Last Reviewed 07/18/20 @ 11:[address] Sofia Castellon MD) Severe sepsis (Acute) Acute respiratory disease (Acute) Urinary retention (Acute) Acute bronchitis, unspecified (Acute) Acute respiratory failure with hypoxia and hypercapnia (Acute) COPD exacerbation (Acute) Date of Admission: 07/17/20 Date of Discharge: 07/19/20 - Primary Discharge Diagnosis Acute Problems: Active Problems (Last Reviewed 07/18/20 @ 11:[address] Sofia Castellon MD) Severe sepsis (Acute) Acute respiratory disease (Acute) Urinary retention (Acute) Acute bronchitis, unspecified (Acute) Acute respiratory failure with hypoxia and hypercapnia (Acute) COPD exacerbation (Acute) - Secondary Discharge Diagnosis Chronic Problems: Chronic Problems (Last Reviewed 07/18/20 @ 11:[address] 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 Per [facility] @ [facility] 12/08/2018 Smoking (Chronic) Chronic respiratory failure (Chronic) On home oxygen Muscular dystrophy (Chronic) Hyponatremia (Chronic) Hypothyroidism (Chronic) COPD (chronic obstructive pulmonary disease) (Chronic) Depression (Chronic) [place] esophagus (Chronic) Postprandial bloating (Chronic) Anxiety (Chronic) Hospital Course and Treatment Imaging Results: Clinical Impression(s) from Imaging Studies Chest X-Ray 07/17/20 20:00 IMPRESSION: Stable bilateral lower lobe infiltrates, right greater than left. Electronically Signed: Santino Navarrete, at 20:24 EST Tel , Service support , Renal Ultrasound 07/18/20 11:17 IMPRESSION: Normal renal ultrasound. at 2357 Reported and signed by: Shad Barraza MD Electronically Signed: Shad Barraza MD at 23:56 EST Tel , Service support , Consults: Urology ICU Operations: None Procedures: None Summary of Care Provided: Per HPI: The patient is a 70 year old F with a significant history of COPD with asthmatic component and on 4 L nasal command chronically; diabetes mellitus; depression and anxiety who presented to the emergency department with sudden onset shortness of breath that occurred while eating. Of note patient's was discharged from the hospital on the same day of this presentation under similar circumstances. Her current symptoms started 1 hour before presentation. Patient reportedly was wheezing. Associated with her symptoms is dry cough and right rib pain. Patient was given a breathing treatment by paramedics. BiPAP was placed on patient while at the emergency department. Hospital Course: 1. Acute on chronic hypoxic respiratory failure secondary to possibly flash pulmonary edema/COPD?asthma overlap syndrome/significant urinary retention -Echo from 1 year ago with a normal EF and stage I diastolic dysfunction with an elevated pulmonary artery pressure 39 mmHg -Echo on her previous admission was consistent with her last echo -It was found that she had elevated postvoid residuals of 1214 100 cc on straight cath. She is to have to straight cath intermittently which she says that she has not had to do recently. Once her bladder was emptied all of her symptoms resolved. She no longer had any chest pain or shortness of breath and she was taken off of her BiPAP and was tolerating oxygen at her home 4 L -Her rapid deterioration in rapid recovery is unlikely to be secondary to COPD. Continue with inhalers -She will have a renal ultrasound today as well as a Billings catheter placed. Per urology, she can remove the Billings on Wednesday night and will present to the office on Wednesday for a post void residual. Will be managed as an outpatient at that point. -I discussed with her the plan for discharge and she expressed understanding the risks and benefits of going home. She would like to go home. She is on her home O2 level, I did discuss decrease her Lasix from 40 mg to 20 mg p.o. daily. F/u with her PCP in 3-5 days to monitor renal function 2. CAD status post CABG/HTN/HLD/elevated troponins -Recent echo which was unremarkable. Her elevated troponins were likely secondary to demand from her urinary retention and her tachypnea tachycardia -Pressure is stable, continue with her losartan and metoprolol -Continue with oral Lasix on discharge. -Continue with aspirin and Plavix 3. DM 2 -We will continue with her Metformin as well as home insulin -Accu-Cheks AC at bedtime 4. GERD -Stable -Continue with PPI 5. Anxiety/depression -Stable -Continue with Xanax, Celexa, risperidone 6. She does not have severe sepsis or pneumonia the findings on x-ray are likely consistent with atelectasis. Antibiotics can be discontinued her white count has completely resolved and her symptoms have resolved with straight cathing of the bladder. Therefore this was likely the main issue and not anything to do with an infection. Patient Problems: Active and Suspected Problems (Last Reviewed 07/18/20 @ 11:[address] Sofia Castellon MD) Severe sepsis (Acute) Acute respiratory disease (Acute) Urinary retention (Acute) Acute bronchitis, unspecified (Acute) Acute respiratory failure with hypoxia and hypercapnia (Acute) COPD exacerbation (Acute) - Physical Exam Vitals/I&O's: Vital Signs Temp Pulse Resp BP Pulse Ox 97.8 F 81 16 124/67 H 97 07/19/20 10:14 07/19/20 10:59 07/19/20 10:59 07/19/20 10:14 07/19/20 10:14 Oxygen Flow Rate (L/min) 4 Oxygen Delivery Method Nasal Cannula Weight: 210 lb 5.136 oz Body Mass Index (BMI) 39.2 Finger Stick Blood Glucose 552 Intake and Output for Last 24 Hours 07/17/20 07/18/20 07/19/20 23:59 23:59 23:59 Intake Total 100 / 100 1590 / 1590 Output Total 1400 / 1400 4175 / 4175 1000 / 1000 Balance -1300 / -1300 -2585 / -2585 -1000 / -1000 General: Alert, Oriented x3, Cooperative, No apparent distress HEENT: Atraumatic, PERRLA, EOMI, Normocephalic Oral: Moist Mucosa Neck: Supple, No JVD Lungs: Clear to auscultation, Normal air movement, No rhonchi, No wheeze, No rales, Diminished Cardiovascular: Regular rate, Regular Rhythm, Normal S1, Normal S2, No murmurs Abdomen: Soft, Non Tender, Non-Distended, No Hepato-splenomegaly Extremities: No edema, Capillary Refill Less than 3 Seconds Skin: No rashes, No breakdown Neurological: Neuro grossly intact, Sensory exam intact to light touch and pain Psych/Mental Status: Normal Affect, Appropriate Microbiology Past 72 Hours 07/17/20 23:30 Urine Catheter - Catheter Urine Culture - Preliminary Culture exhibits no growth. 07/17/20 23:30 Urine, Catheterized Urine Culture - Preliminary Culture exhibits no growth. 07/17/20 23:30 Urine Catheter - Catheter Legionella Antigen - Final 07/17/20 23:30 Urine Catheter - Catheter Streptococcus pneumoniae Antigen (M - Final 07/17/20 19:39 Mucosa - Nose SARS-CoV-2 Antigen (Rapid) - Final Laboratory Results 07/18/20 21:15: POC Glucose 352 H 07/19/20 06:52: Sodium 134 L, Potassium 3.7, Chloride 98, Carbon Dioxide 31.0, Anion Gap 5, BUN 24 H, Creatinine 0.82, Estim Creat Clear Calc 51.21, Est GFR (MDRD) Af Amer 89, Est GFR (MDRD) Non-Af 74, BUN/Creatinine Ratio 29.4 H, Glucose 191 H, Calcium 8.4 L 07/19/20 10:07: POC Glucose 215 H Discharge Activity: Return to Normal Activity Call your doctor if you observe: Fever of 101 or Higher, Shortness of breath, Dizziness, Fainting spells, Swelling in the ankles, Chest pain, Increased palpitations (irregular heartbeat) Home Medications: Medications to take at Discharge aspirin 81 mg tablet,delayed release 81 mg PO DAILY #90 tablet. 04/20/19 atorvastatin 80 mg tablet 80 mg PO QHS #90 tab 11/17/19 clopidogrel 75 mg tablet 75 mg PO DAILY #90 tab 11/21/19 losartan 25 mg tablet 25 mg PO DAILY #90 tab 12/01/19 nitroglycerin 0.4 mg sublingual tablet 0.4 mg SUBLINGUAL ONCE #25 tab 12/01/19 pantoprazole 40 mg tablet,delayed release 40 mg PO DAILY #60 tab 01/17/20 risperidone 1 mg tablet 1.5 mg PO QHS 90 Days #135 tab 01/17/20 Acetaminophen 1,000 mg PO TID PRN #1 tab 03/16/20 Ibuprofen 400 mg PO TID PRN #1 tab 03/16/20 bisacodyl 5 mg tablet,delayed release 5 mg PO ONCE PRN #14 tab 05/09/20 metformin 500 mg tablet,extended release 24 hr 1,000 mg PO QPM #180 tab 05/09/20 insulin glargine 100 unit/mL (3 mL) subcutaneous pen 46 unit SC QPM 05/17/20 insulin lispro 100 unit/mL subcutaneous pen 15 unit SC TID #60 ml 05/17/20 alprazolam 0.5 mg tablet 0.5 mg PO DAILY PRN #30 tab 07/08/20 ipratropium 0.5 mg-albuterol 3 mg (2.5 mg base)/3 mL nebulization soln 3 ml INHALATION Q4H PRN PRN #180 ml 07/11/20 albuterol sulfate 90 mcg/actuation aerosol inhaler 2 puff INHALATION Q6H PRN #18 g 07/12/20 metoprolol tartrate 25 mg tablet 12.5 mg PO BID #90 tab 07/13/20 Citalopram [Celexa] 40 mg PO QHS 07/15/20 pen needle, diabetic 32 gauge x See Rx Instructions .ROUTE .MEDSUPPLY #400 ea 07/16/20 Furosemide [Lasix] 20 mg PO DAILY #30 tab 07/19/20 Primary Care Physician: Billy Madera MD [Primary Care Provider] - Please follow up with your Primary Care Physician in: 3-5 days Please Follow Up With: Sofia Castellon MD When: Wednesday Disposition: Home Minutes spent on discharge:: 35 Patient Condition:: Stable Medical Necessity - Tobacco Use Smoking Status: Former smoker Meaningful Use Info Meaningful Use Diagnoses (Choose all that apply): None applicable Inpatient E&M: 61805 [facility]
--- NOTE | 2020-07-22 15:38 | CASEMGMT ---
HARLEEN LUCIANO Discharge Follow-up Phone Call: BETTE: Noé Strata: 4 Call Date: 07/22/20 Discharge Date: 07/19/20 Time of Call: 1537 Duration: 1 min Admitting Diagnosis: Severe sepsis RN MUSTAPHA attempted to complete follow-up phone call after recent hospitalization. No answer, voice message left with return contact information.
== END 2020-07-19 12:35 | disposition home or self-care (01) | DRG 695 ==
LOC: ED 19:51 → ICU 21:55 → MS3 07-18 16:31
PROVIDERS: Internal Medicine Critical Care Medicine; Admitting Provider Hospitalist; Emergency Provider Student in an Organized Health Care Education/Training Program; PCP Internal Medicine; Visit Provider Family Medicine
DX: R33.9 Retention of urine, unspecified (principal); J96.21 Acute and chronic respiratory failure with hypoxia; J98.11 Atelectasis; J44.9 Chronic obstructive pulmonary disease, unspecified; E11.65 Type 2 diabetes mellitus with hyperglycemia; I25.10 Atherosclerotic heart disease of native coronary artery without angina pectoris; R74.8 Abnormal levels of other serum enzymes; F41.1 Generalized anxiety disorder; I10 Essential (primary) hypertension; E66.9 Obesity, unspecified; S42.301D Unspecified fracture of shaft of humerus, right arm, subsequent encounter for fracture with routine healing; X58.XXXD Exposure to other specified factors, subsequent encounter; G71.00 Muscular dystrophy, unspecified; Z95.1 Presence of aortocoronary bypass graft; K21.9 Gastro-esophageal reflux disease without esophagitis; F32.9 Major depressive disorder, single episode, unspecified; Z87.891 Personal history of nicotine dependence; Z99.81 Dependence on supplemental oxygen; Z79.4 Long term (current) use of insulin; Z79.51 Long term (current) use of inhaled steroids; Z79.899 Other long term (current) drug therapy
CPT/HCPCS: 36415; 36600; 71045; 76770; 80048; 80053; 81001; 82803; 82962; 83605; 84484; 85025; 85610; 85730; 87040; 87086; 87426; 87449; 87641; 93005; 94002; 94003; 94640; 99285; J7040; A4216

== ENCOUNTER → 2020-07-24 11:15 | Outpatient (CLI) | payer MEDICARE, SELFPAY ==
[2020-06-11 17:57] VITALS: BMI 34.9
[2020-07-23 10:03] VITALS: BMI 37.5
[2020-07-24 12:38] LABS: Absolute Lymphocyte Count 1.07 X10^3/uL (0.83-4.51); Absolute Neutrophil Count 7.6 X10^3/uL (2.0-7.7); Basophil# 0.08 X10^3/uL; Basophil% 0.8 % (0-1); Eosinophil# 0.22 X10^3/uL; Eosinophils% 2.3 % (0-5); Hematocrit 33.3 % (37-47); Hemoglobin 10.2 g/dL (12.0-15.0); Lymphocyte # 1.07 X10^3/ul (4.0); Lymphocyte % 11.1 % (19-41); Mean Corp Hgb Conc 30.6 g/dL (32-36); Mean Corpuscular Hgb 27.8 pg (27.0-32.0); Mean Corpuscular Volume 90.7 fL (81-99); Mean Platelet Vol. 11.7 fl (6.2-12.0); Monocyte# 0.64 X10^3/uL; Monocyte% 6.6 % (0-10); NRBC Flagged by Analyzer 0 % (0-5); Neutrophil # 7.64 X10^3/uL (2.7-7.7); Neutrophil % 78.9 % (47-70); Platelet Count 425 K/mm3 (150-450); RBC Distribution Width CV 12.1 % (11.6-14.6); Red Blood Count 3.67 M/mm3 (4.2-5.4); White Blood Count 9.7 K/mm3 (4.4-11.0)
[2020-07-24 12:54] LABS: Anion Gap 6 (5-15); BUN 12 mg/dL (7-18); BUN/Creat Ratio 15.6 RATIO (10-20); Calcium,Total 9.2 mg/dL (8.5-10.1); Chloride 100 mmol/L (98-107); Creatinine, Serum 0.77 mg/dL (0.55-1.02); EST Glomerular Filtration Rate 79 mL/min (>60); Est Glom Filt Rate - Afr Amer 96 mL/min (>60); Glucose 122 mg/dL (74-106); Potassium 3.7 mmol/L (3.5-5.1); Sodium Level 137 mmol/L (136-145)
== END ==
PROVIDERS: PCP Internal Medicine; Referring Provider Nurse Practitioner Family; Visit Provider Nurse Practitioner Family
DX: E11.9 Type 2 diabetes mellitus without complications (principal); R04.2 Hemoptysis
CPT/HCPCS: 36415; 80048; 85025

== ENCOUNTER → 2020-07-25 20:23 | Outpatient (CLI) | payer MEDICARE, SELFPAY ==
[2020-06-11 17:57] VITALS: BMI 34.9
[2020-07-23 10:03] VITALS: BMI 37.5
== END ==
PROVIDERS: PCP Internal Medicine; Referring Provider Nurse Practitioner Acute Care; Visit Provider Nurse Practitioner Acute Care
DX: G47.33 Obstructive sleep apnea (adult) (pediatric) (principal)
CPT/HCPCS: 95810

== ENCOUNTER 2020-08-12 15:48 | Emergency (ER) | payer BC, SELFPAY ==
[2020-06-11 17:57] VITALS: BMI 34.9
[2020-07-23 10:03] VITALS: BMI 37.5
[2020-08-12 15:50] VITALS: BP 122/56; PULSE 65; RESP 28; TEMP 36.9; O2SAT 98; BMI 40.5
--- NOTE | 2020-08-12 16:07 | EKG12_ITS ---
Test Reason : SOB/CP Blood Pressure : / mmHG Vent. Rate : 062 BPM Atrial Rate : 062 BPM P-R Int : 162 ms QRS Dur : 084 ms QT Int : 448 ms P-R-T Axes : 032 009 016 degrees QTc Int : 454 ms Normal sinus rhythm Nonspecific T wave abnormality Confirmed by RAMIREZ MELVIN, ARPITA ([id number]), proposal editor JAVIER COLBY ([id number]) on 08/14/2020 9:31:29 AM Referred By: MADDIE/PRIMO Confirmed By:ARPITA GUZMÁN MD
[2020-08-12 16:09] VITALS: O2SAT 99
[2020-08-12 16:39] LABS: Absolute Lymphocyte Count 1.37 X10^3/uL (0.83-4.51); Absolute Neutrophil Count 5.3 X10^3/uL (2.0-7.7); Basophil# 0.04 X10^3/uL; Basophil% 0.5 % (0-1); Eosinophil# 0.15 X10^3/uL; Hematocrit 31.4 % (37-47); Hemoglobin 10.4 g/dL (12.0-15.0); Lymphocyte # 1.37 X10^3/ul (4.0); Lymphocyte % 18.7 % (19-41); Mean Corp Hgb Conc 33.1 g/dL (32-36); Mean Corpuscular Hgb 28.6 pg (27.0-32.0); Mean Corpuscular Volume 86.3 fL (81-99); Mean Platelet Vol. 10.7 fl (6.2-12.0); Monocyte# 0.46 X10^3/uL; Monocyte% 6.3 % (0-10); NRBC Flagged by Analyzer 0 % (0-5); Neutrophil # 5.27 X10^3/uL (2.7-7.7); Neutrophil % 72.1 % (47-70); Platelet Count 251 K/mm3 (150-450); RBC Distribution Width CV 12.7 % (11.6-14.6); RBC Distribution Width SD 38.7 fl (35.1-43.9); Red Blood Count 3.64 M/mm3 (4.2-5.4); White Blood Count 7.3 K/mm3 (4.4-11.0)
--- NOTE | 2020-08-12 16:44 | ED.VISSUMM ---
- ER Visit Summary Date of Service: 08/12/20 Chief Complaint: Chest pain History of Present Illness: The patient is a 70 F presenting with chest pain. Patient starts this started approximately an hour prior to arrival. She had 5 out of 10 midsternal chest pain. It was relieved with 1 nitro per EMS. She was given aspirin per EMS. She has associated shortness of breath and diaphoresis. She has a productive cough over the past week as well. She denies fever. Denies known exposure to Covid. She was admitted to the hospital 07/17-07/19. Her last nuclear stress was 03/16/2020. She is a previous smoker. Physical Examination: Vitals are stable. Patient is afebrile. Alert no acute distress. Pulse ox 99% on nasal cannula HEENT exam is unremarkable. Neck is supple. Lungs are diminished bilaterally. Heart is regular rate and rhythm. Abdomen is soft nontender nondistended. Extremities are unremarkable. Skin is warm and dry. No focal neurologic deficit. Remainder of exam is unremarkable. Emergency Department Course and Treatment: EKG is sinus rhythm rate of 62 with no acute ischemic changes. CBC normal except hemoglobin 10.4. Chemistries show sodium 130, glucose 70. Troponin is negative. Patient was given albuterol, Atrovent aerosols. Chest x-ray read myself and radiology shows Chronic interstitial changes with development of new left pleural effusion with likely associated atelectasis or infiltrate since the previous study, follow-up recommended to assure resolution. On multiple reevaluations patient states she feels well, her chest pain has resolved and she denies shortness of breath. She has episodes of hyperventilating. She feels her home dose of Xanax may help. She was given her nighttime dose of Xanax with improvement. Discussed with family and patient. Patient would like to go home, she states her symptoms have completely resolved. Discussed with Dr. Ferguson. Patient has an appointment tomorrow morning in their office. She will follow-up at her scheduled appointment tomorrow. Advised to return to the ED for worsening complaints. Disposition: Discharge home Impression: Chest pain, resolved This note was generated with [employer] software. It may contain incorrect words, spelling, and punctuation that were not noted in review of the chart prior to signing ED Disposition - Plan for ED Patient: Instructions: ED Chest Pain, Uncertain Cause Referrals: Wade Ferguson MD [STAFF PHYSICIAN] - Billy Madera MD [Primary Care Provider] -
[2020-08-12 17:04] LABS: Anion Gap 6 (5-15); BUN 9 mg/dL (7-18); BUN/Creat Ratio 11.9 RATIO (10-20); Calcium,Total 9.3 mg/dL (8.5-10.1); Chloride 95 mmol/L (98-107); Creatinine, Serum 0.76 mg/dL (0.55-1.02); EST Glomerular Filtration Rate 80 mL/min (>60); Est Glom Filt Rate - Afr Amer 97 mL/min (>60); Estimated Creatinine Clearance 41.99 ml/min; Glucose 70 mg/dL (74-106); Potassium 3.9 mmol/L (3.5-5.1); Sodium Level 130 mmol/L (136-145)
[2020-08-12 17:08] VITALS: BP 118/78; PULSE 59; RESP 17; O2SAT 99
[2020-08-12 17:12] VITALS: PULSE 53; RESP 26
[2020-08-12] MEDS: Albuterol 2.5 MG/3 ML VIAL.NEB. INHALATION ×3 (17:12)
--- NOTE | 2020-08-12 17:40 | RAD_ITS ---
STUDY: X-RAY CHEST REASON FOR EXAM: Female, 70 years old. chest pain TECHNIQUE: Single AP portable view of the chest. COMPARISON: 07/17/2020 FINDINGS: EKG leads overlie the chest Chronic interstitial changes in both lung mera with development of new left pleural effusion and likely associated atelectasis infiltrate since the previous study. Follow-up recommended to ensure resolution Normal size heart. Normal mediastinum and wallace. Normal visualized pulmonary arteries. Normal visualized aortic arch and descending thoracic aorta. There are diffuse degenerative changes of the visualized thoracic spine. Normal visualized ribs, clavicles, and shoulders. There is no demonstrated abnormality of the visualized soft tissue structures of the upper abdomen. RAD/Chest 1 View (Portable) IMPRESSION: Chronic interstitial changes with development of new left pleural effusion with likely associated atelectasis or infiltrate since the previous study, follow-up recommended to assure resolution Electronically Signed: Chaparro Zepeda MD at 18:23 EST , Service support ,
[2020-08-12 18:09] VITALS: BP 119/89; PULSE 68; RESP 18; O2SAT 99
[2020-08-12] MEDS: ALPRAZolam 0.5 MG Tablet PO (19:37)
--- NOTE | 2020-08-12 20:12 | ED.DEP ---
ED Disposition - Plan for ED Patient: Instructions: ED Chest Pain, Uncertain Cause Referrals: Billy Madera MD [Primary Care Provider] - Wade Ferguson MD [STAFF PHYSICIAN] -
[2020-08-12 20:14] VITALS: BP 153/70; PULSE 74; RESP 21; O2SAT 100
== END 2020-08-12 20:48 | disposition home or self-care (01) ==
LOC: ED 17:06
PROVIDERS: Emergency Provider Emergency Medicine; PCP Internal Medicine
DX: R07.9 Chest pain, unspecified (principal); J44.9 Chronic obstructive pulmonary disease, unspecified; E11.9 Type 2 diabetes mellitus without complications; I10 Essential (primary) hypertension; E78.00 Pure hypercholesterolemia, unspecified; Z79.4 Long term (current) use of insulin; Z87.891 Personal history of nicotine dependence; Z79.51 Long term (current) use of inhaled steroids; Z79.899 Other long term (current) drug therapy
CPT/HCPCS: 71045; 80048; 84484; 85025; 87426; 93005; 94640; 99285; A4216

== ENCOUNTER → 2020-08-13 | Outpatient (CLI) | payer MEDICARE, SELFPAY ==
[2020-06-11 17:57] VITALS: BMI 34.9
[2020-08-12 15:50] VITALS: BMI 40.5
[2020-08-13 14:27] LABS: BNP,B-Type NATRIURETIC PEPTIDE 100.7 pg/mL (0-100)
== END | disposition home or self-care (01) ==
LOC: LABSPEC 13:16
PROVIDERS: Physician Assistant Medical; PCP Internal Medicine; Visit Provider Internal Medicine
DX: I25.110 Atherosclerotic heart disease of native coronary artery with unstable angina pectoris (principal)
CPT/HCPCS: 83880

== ENCOUNTER → 2020-08-21 11:20 | Outpatient (CLI) | payer MEDICARE, SELFPAY ==
[2020-06-11 17:57] VITALS: BMI 34.9
[2020-08-19 13:49] LABS: Platelet Count 293 K/mm3 (150-450)
[2020-08-19 13:53] LABS: Partial Thromboplast Time 28.8 Seconds (24.1-36.2); Prothrombin Time (Protime)PT. 12.8 SECONDS (11.7-14.9)
[2020-08-19 14:05] LABS: ALB/GLOB Ratio 1.1 RATIO (0.9-2.4); Globulin 3.3 g/dL (2.2-4.2); LDH 159 U/L (84-246); Protein, Total 6.9 g/dL (6.4-8.2)
[2020-08-20 11:45] VITALS: BMI 35.8
--- NOTE | 2020-08-21 11:25 | US_ITS ---
STUDY: SUPERFICIAL ULTRASOUND - LEFT CHEST. REASON FOR EXAM: Female, 70 years old. LEFT PLEURAL EFFUSION. NOT ENOUGH FLUID TO DRAIN. TECHNIQUE: A superficial ultrasound was performed with real-time and static godinez-scale imaging. COMPARISON: None. FINDINGS: Minimal left pleural effusion. US/Chest IMPRESSION: Minimal left pleural effusion. The thoracentesis was not performed. Electronically Signed: Bruce Lubin, at 14:59 EST , Service support ,
== END ==
PROVIDERS: PCP Internal Medicine; Referring Provider Nurse Practitioner Acute Care; Visit Provider Nurse Practitioner Acute Care
DX: J90 Pleural effusion, not elsewhere classified (principal); R04.2 Hemoptysis
CPT/HCPCS: 36415; 76604; 83615; 84156; 85049; 85610; 85730

== ENCOUNTER 2020-08-27 19:51 | Emergency (ER) | payer MEDICARE, SELFPAY ==
[2020-06-11 17:57] VITALS: BMI 34.9
[2020-08-20 11:45] VITALS: BMI 35.8
[2020-08-27 19:52] VITALS: BP 152/69; PULSE 59; RESP 13; TEMP 36.9; O2SAT 100; BMI 38.0
--- NOTE | 2020-08-27 20:12 | CT_ITS ---
STUDY: CT BRAIN WITHOUT CONTRAST REASON FOR EXAM: Female, 70 years old. HEADACHE, CP, SOB RADIATION DOSAGE (If Supplied By Facility): CTDIvol = ( 44.99 ) mGy, DLP = ( 796.11 ) mGycm TECHNIQUE: Transaxial CT imaging of the brain was performed without administration of intravenous contrast material. Individualized dose optimization techniques were used for this CT. COMPARISON: Head CT dated 06/29/2020 FINDINGS: Normal soft tissue structures. Normal calvarium. There is mild cerebral atrophy with widening of the extra-axial spaces and ventricular dilatation. There are areas of decreased attenuation within the white matter tracts of the supratentorial brain, consistent with microvascular disease changes. Prior area of ischemia in the right basal ganglia. Normal brainstem. Normal cerebellum. There is no intracranial hemorrhage. There are no findings of an acute ischemic infarction. Normal visualized paranasal sinuses. CT/Brain/Head without Contrast IMPRESSION: Chronic involutional changes of the brain. Electronically Signed: Duglas Watkins DO at 21:21 EST Tel , Service support ,
--- NOTE | 2020-08-27 20:12 | EKG12_ITS ---
Test Reason : SOB Blood Pressure : / mmHG Vent. Rate : 058 BPM Atrial Rate : 058 BPM P-R Int : 168 ms QRS Dur : 086 ms QT Int : 446 ms P-R-T Axes : -27 020 029 degrees QTc Int : 437 ms Sinus bradycardia Otherwise normal ECG Confirmed by BANG MELVIN, ROSALIA ([id number]), news video editor RAMANDEEP HOLGUIN ([id number]) on 09/02/2020 12:48:43 PM Referred By: ANABEL Confirmed By:ROSALIA CUENCA MD
--- NOTE | 2020-08-27 20:13 | ED.DCSUM_ITS ---
History of Present Illness Chief Complaint: Chest Pain Narrative: Patient is a 70-year-old female who presents with headache and chest pain. She states that at home she was feeling hot and having a headache. Headache began about 2 hours ago and is gradually worsened. She states this is the worst headache she is ever had. She states she had actually called EMS just to have her blood pressure checked. However she had also complained of mild chest pain which resolved completely with nitroglycerin. She states she feels pretty good right now and is ready to go home. No recent illness. No fever cough vomiting diarrhea runny nose sore throat. Past Medical History - Allergies and Home Meds Allergies/Adverse Reactions: Allergies amoxicillin [Amoxicillin] Allergy (Intermediate, Verified 08/27/20 20:03) Rash gabapentin [From Neurontin] Allergy (Verified 08/27/20 20:03) Shortness of breath levofloxacin [From Levaquin] Allergy (Verified 08/27/20 20:03) Hivtj is allergic to the red dye in the pill form, states she is fine with the iv form. pseudoephedrine HCl [From Sudafed] Allergy (Verified 08/27/20 20:03) Shortness of breath red dye Allergy (Verified 08/27/20 20:03) Hives codeine Adverse Reaction (Verified 08/27/20 20:03) HEADACHE Primary Care Physician: Billy Madera MD [Primary Care Provider] - Past Medical History: - - Diabetes, coronary artery disease, hypertension, hyperlipidemia Surgical History: angioplasty - With coronary stent x2, cholecystectomy Smoking Status: Former smoker - Family History Sibling Family History: Family History (Last Reviewed 08/20/20 @ 12:[address] Donald Heller MD) Brother Heart disease Mother Colon cancer Heart disease Family History: Reports: Heart Disease - Brother of massive AK at age 50 Maternal Family History: Family History (Last Reviewed 08/20/20 @ 12:[address] Donald Heller MD) Brother Heart disease Mother Colon cancer Heart disease Family History: Reports: Heart Disease Paternal Family History: Family History (Last Reviewed 08/20/20 @ 12:[address] Donald Heller MD) Brother Heart disease Mother Colon cancer Heart disease Family History: Reports: Pulmonary Disease Physical Exam Vital Signs/Narrative: Vital Signs Temp Pulse Resp BP Pulse Ox 08/27/20 19:52 98.4 F 59 L 13 152/69 H 100 Diagnostic/Tx/Re-eval Impressions Brain CT 08/27/20 20:12 IMPRESSION: Chronic involutional changes of the brain. Electronically Signed: Duglas Watkins DO at 21:21 EST Tel , Service support , Chest X-Ray 08/27/20 20:43 IMPRESSION: Patchy bibasilar opacities and moderate left effusion are similar to prior. Electronically Signed: Paulo Larson MD at 21:29 EST Tel , Service support , 08/27/20 20:12 Brain/Head without Contrast [CT] Stat 08/27/20 20:43 Chest 1 View (Portable) [RAD] Stat Laboratory Results 08/27/20 08/27/20 20:20 20:20 WBC 12.1 H RBC 3.66 L Hgb 10.2 L Hct 30.2 L MCV 82.5 MCH 27.9 MCHC 33.8 RDW Std Deviation 37.5 RDW Coeff of Malcom 12.3 Plt Count 328 MPV 10.6 Immature Gran % (Auto) 0.400 Neut % (Auto) 74.4 H Lymph % (Auto) 17.0 L Mcduffie % (Auto) 5.5 Eos % (Auto) 2.0 Baso % (Auto) 0.7 Absolute Neuts (auto) 9.0 H Absolute Lymphs (auto) 2.05 Nucleated RBC % 0 Sodium 125 L Potassium 3.6 Chloride 92 L Carbon Dioxide 27.0 Anion Gap 6 BUN 8 Creatinine 0.69 Estim Creat Clear Calc 41.99 Est GFR (MDRD) Af Amer 109 Est GFR (MDRD) Non-Af 90 BUN/Creatinine Ratio 11.6 Glucose 84 Calcium 9.1 Troponin I < 0.015 - Medical Decision Making Labs notable for hyponatremia which appears to be chronic. Labs otherwise unremarkable. EKG shows sinus bradycardia at a rate of 58 with no acute ischemic changes. CT the head is negative. Chest x-ray shows chronic changes in left pleural effusion similar to prior. Patient had Reglan ordered but when nursing went in to give it she stated her headache is completely resolved. On reevaluation she has no complaints. She wants to be discharged. She was advised to follow-up as an outpatient. She understands return for new or worsening symptoms. ED Disposition - Plan for ED Patient: Disposition: Home or Assisted Living Diagnosis: Headache, Chest pain Instructions: ED Chest Pain, Uncertain Cause, ED Headache, Tension Referrals: Billy Madera MD [Primary Care Provider] -
[2020-08-27 20:29] LABS: Absolute Lymphocyte Count 2.05 X10^3/uL (0.83-4.51); Basophil# 0.08 X10^3/uL; Basophil% 0.7 % (0-1); Eosinophil# 0.24 X10^3/uL; Hematocrit 30.2 % (37-47); Hemoglobin 10.2 g/dL (12.0-15.0); Lymphocyte # 2.05 X10^3/ul (4.0); Mean Corp Hgb Conc 33.8 g/dL (32-36); Mean Corpuscular Hgb 27.9 pg (27.0-32.0); Mean Corpuscular Volume 82.5 fL (81-99); Mean Platelet Vol. 10.6 fl (6.2-12.0); Monocyte# 0.66 X10^3/uL; Monocyte% 5.5 % (0-10); NRBC Flagged by Analyzer 0 % (0-5); Neutrophil # 8.98 X10^3/uL (2.7-7.7); Neutrophil % 74.4 % (47-70); Platelet Count 328 K/mm3 (150-450); RBC Distribution Width CV 12.3 % (11.6-14.6); RBC Distribution Width SD 37.5 fl (35.1-43.9); Red Blood Count 3.66 M/mm3 (4.2-5.4); White Blood Count 12.1 K/mm3 (4.4-11.0)
--- NOTE | 2020-08-27 20:43 | RAD_ITS ---
STUDY: X-RAY CHEST REASON FOR EXAM: Female, 70 years old. CHEST PAIN WITH SOB AT HOME TODAY FOR 1 HOUR TECHNIQUE: Single frontal view of the chest. COMPARISON: 08/12/2020. FINDINGS: Cardiac silhouette unremarkable. Pulmonary vascularity unremarkable. Aorta unremarkable. Patchy bibasilar opacities and moderate left effusion are similar to prior. Upper abdomen unremarkable. Osseous structures intact. No pneumothorax. RAD/Chest 1 View (Portable) IMPRESSION: Patchy bibasilar opacities and moderate left effusion are similar to prior. Electronically Signed: Paulo Larson MD at 21:29 EST Tel , Service support ,
[2020-08-27 20:57] LABS: Anion Gap 6 (5-15); BUN 8 mg/dL (7-18); BUN/Creat Ratio 11.6 RATIO (10-20); Calcium,Total 9.1 mg/dL (8.5-10.1); Chloride 92 mmol/L (98-107); Creatinine, Serum 0.69 mg/dL (0.55-1.02); EST Glomerular Filtration Rate 90 mL/min (>60); Est Glom Filt Rate - Afr Amer 109 mL/min (>60); Estimated Creatinine Clearance 41.99 ml/min; Glucose 84 mg/dL (74-106); Potassium 3.6 mmol/L (3.5-5.1); Sodium Level 125 mmol/L (136-145)
[2020-08-27 21:00] VITALS: BP 104/88; PULSE 66; RESP 23; O2SAT 99
[2020-08-27 22:33] VITALS: BP 106/84; PULSE 58; RESP 28; O2SAT 99
== END 2020-08-28 01:25 | disposition home or self-care (01) ==
PROVIDERS: Emergency Provider Emergency Medicine; PCP Internal Medicine
DX: R51.9 Headache, unspecified (principal); R07.9 Chest pain, unspecified; E11.9 Type 2 diabetes mellitus without complications; E78.5 Hyperlipidemia, unspecified; I25.10 Atherosclerotic heart disease of native coronary artery without angina pectoris; I10 Essential (primary) hypertension; Z87.891 Personal history of nicotine dependence
CPT/HCPCS: 70450; 71045; 80048; 84484; 85025; 93005; 99285; A4216

== ENCOUNTER 2020-09-21 14:50 | Inpatient (IN) | payer MEDICARE, SELFPAY ==
[2020-09-18 13:21] VITALS: BMI 34.9; BMI 38.0
[2020-09-21] VITALS (11 sets, daily range): BP systolic 136–144; BP diastolic 48–73; PULSE 67–76; RESP 16–24; TEMP 36.6–36.8; O2SAT 95–100; BMI 37.3; BMI 36.3
--- NOTE | 2020-09-21 14:53 | ED.DCSUM_ITS ---
History of Present Illness Chief Complaint: Chest Pain Informant: Patient Narrative: 70-year-old female with oxygen dependent COPD presents with concern for chest pain and shortness of breath. States it began approximately 90 minutes ago. States that she was on her couch relaxing when it began. States that she has had a slight cough over the past few days. Denies any fever. Denies any nausea, vomiting, diaphoresis. Patient wears 4 L at baseline. No change in her oxygen requirement. No changes in her medication or environment. Describes the pain is sharp and underneath her left breast. Past Medical History - Allergies and Home Meds Allergies/Adverse Reactions: Allergies amoxicillin [Amoxicillin] Allergy (Intermediate, Verified 09/21/20 14:52) Rash gabapentin [From Neurontin] Allergy (Verified 09/21/20 14:52) Shortness of breath levofloxacin [From Levaquin] Allergy (Verified 09/21/20 14:52) Hivtj is allergic to the red dye in the pill form, states she is fine with the iv form. pseudoephedrine HCl [From Sudafed] Allergy (Verified 09/21/20 14:52) Shortness of breath red dye Allergy (Verified 09/21/20 14:52) Hives codeine Adverse Reaction (Verified 09/21/20 14:52) HEADACHE Primary Care Physician: Billy Madera MD [Primary Care Provider] - Prior records reviewed: Yes Past Medical History: - - COPD, CAD, HTN, DM Surgical History: angioplasty - With coronary stent x2, cholecystectomy Smoking Status: Former smoker - Family History Sibling Family History: Family History (Last Reviewed 09/12/20 @ 13:59 by Gladys Andujar) Brother Heart disease Mother Colon cancer Heart disease Family History: Reports: Heart Disease - Brother of massive IL at age 50 Maternal Family History: Family History (Last Reviewed 09/12/20 @ 13:59 by Gladys Andujar) Brother Heart disease Mother Colon cancer Heart disease Family History: Reports: Heart Disease Paternal Family History: Family History (Last Reviewed 09/12/20 @ 13:59 by Gladys Andujar) Brother Heart disease Mother Colon cancer Heart disease Family History: Reports: Pulmonary Disease Review of Systems General: Denies: Chills, Fever, Sweats Eyes: Denies: Visual changes - bilaterally, Diplopia ENT: Denies: Rhinorrhea, Sore throat Cardiovascular: Reports: Chest pain. Denies: Palpitations Respiratory: Reports: Dyspnea, Cough. Denies: Dyspnea on exertion Gastrointestinal: Denies: Abdominal pain, Nausea, Vomiting, Diarrhea, Melena, Hematochezia Genitourinary: Denies: Dysuria, Hematuria, Frequency Musculoskeletal: Denies: Back pain, Extremity Pain Skin: Denies: Rash, Wounds Neurological: Denies: Headache, Weakness, Numbness Physical Exam General: Well nourished, Well developed, No Acute Distress Head: Normocephalic, Atraumatic Eyes: Perrl, EOMI ENT: Moist mucous membranes, No rhinorrhea Neck: Supple, Nontender Cardiovascular: Regular rate, Regular rhythm, No murmurs Respiratory: No distress, CTA bilaterally, Chest nontender, - - Increased respiratory rate. Pursed lip breathing. Abdomen: Soft, Nontender, Nondistended, Normal bowel sounds Back: Nontender, Normal Inspection Extremities: Nontender, No edema Skin: Normal color, No rash Neurological: Alert, Oriented x3, Cranial nerves II-XII grossly intact, Normal Strength, Normal Sensation Psychological: Normal affect, Normal Mood Diagnostic/Tx/Re-eval - Rhythm Strip Rhythm Strip: Sinus Rhythm Rate: 70 Ectopy: None - EKG Initial EKG Interpretation: Sinus Rhythm - Sinus rhythm at 78 bpm. QTC of [address] changes. No evidence of acute ischemia. - Medical Decision Making Appears well and nontoxic. Vital signs relatively within normal limits some slight hypertension. Patient is having some pursed lip breathing upon arrival but has no significant wheezing. Was given albuterol with ipratropium which resolved this breathing. Chest x-ray negative. Lab work shows a slight leukocytosis. Negative troponin. EKG nonspecific. Patient was having increased chest pain upon ambulating. Was given nitroglycerin which improved her chest pain. Patient's history of significant coronary artery disease she will be given aspirin and admitted to the hospital for further treatment and evaluation. Spoke with the hospitalist who is agreeable. Patient stable at time of admission. Impression: 1. Unstable angina 2. History of coronary artery disease ED Disposition - Plan for ED Patient: Disposition: Acute Care Hospital [facility] Referrals: Billy Madera MD [Primary Care Provider] -
--- NOTE | 2020-09-21 14:54 | EKG12_ITS ---
Test Reason : CP Blood Pressure : / mmHG Vent. Rate : 070 BPM Atrial Rate : 234 BPM P-R Int : 000 ms QRS Dur : 082 ms QT Int : 408 ms P-R-T Axes : 000 022 037 degrees QTc Int : 440 ms Sinus Rhythm Abnormal ECG Confirmed by RADHA MELVIN, ANABELLE ([id number]), news copy editor JAVIER COLBY ([id number]) on 09/23/2020 11:56:09 A M Referred By: AYDEN Confirmed By:MARKUS GARCIA MD
--- NOTE | 2020-09-21 15:07 | RAD_ITS ---
STUDY: X-RAY CHEST REASON FOR EXAM: Female, 70 years old. CP radiating under left arm. SOB. TECHNIQUE: Frontal view of the chest COMPARISON: 27 August 2020 FINDINGS: Left lower lung is again suboptimally evaluated due to combination of cardiac shadow obscuration and patient''s rotation to the left. There is stable interstitial right lower lung opacity, presumed atelectasis. There is probably left pleural effusion and atelectasis. Definitive assessment of lung parenchyma is not possible. Cardiac silhouette is normal. Osseous structures are intact. There is no gas under the diaphragms. Appearance is stable since prior. RAD/Chest 1 View (Portable) IMPRESSION: 1. Stable suboptimal evaluation of left lower lung, likely atelectasis and effusion. Recommend repeating high-quality diagnostic study for more definitive evaluation of left lower lobe. 2. Stable appearance since one month ago. Electronically Signed: Andrade Bagley MD at 15:44 EST Tel , Service support ,
[2020-09-21] MEDS: Ipratropium/Albuterol Sulfate 3 ML AMPUL.NEB INHALATION (15:13)
[2020-09-21 15:17] LABS: Absolute Lymphocyte Count 1.54 X10^3/uL (0.83-4.51); Absolute Neutrophil Count 11.2 X10^3/uL (2.0-7.7); Basophil# 0.08 X10^3/uL; Basophil% 0.6 % (0-1); Eosinophil# 0.15 X10^3/uL; Eosinophils% 1.1 % (0-5); Hematocrit 33.9 % (37-47); Hemoglobin 10.6 g/dL (12.0-15.0); Lymphocyte # 1.54 X10^3/ul (4.0); Lymphocyte % 11.2 % (19-41); Mean Corp Hgb Conc 31.3 g/dL (32-36); Mean Corpuscular Hgb 27.1 pg (27.0-32.0); Mean Corpuscular Volume 86.7 fL (81-99); Mean Platelet Vol. 11.5 fl (6.2-12.0); Monocyte# 0.59 X10^3/uL; Monocyte% 4.3 % (0-10); NRBC Flagged by Analyzer 0 % (0-5); Neutrophil # 11.24 X10^3/uL (2.7-7.7); Neutrophil % 82.1 % (47-70); Platelet Count 343 K/mm3 (150-450); RBC Distribution Width CV 13.3 % (11.6-14.6); RBC Distribution Width SD 42.1 fl (35.1-43.9); Red Blood Count 3.91 M/mm3 (4.2-5.4); White Blood Count 13.7 K/mm3 (4.4-11.0)
[2020-09-21 15:33] LABS: Anion Gap 6 (5-15); BUN 12 mg/dL (7-18); BUN/Creat Ratio 13.5 RATIO (10-20); Chloride 99 mmol/L (98-107); Creatinine, Serum 0.89 mg/dL (0.55-1.02); EST Glomerular Filtration Rate 67 mL/min (>60); Est Glom Filt Rate - Afr Amer 81 mL/min (>60); Estimated Creatinine Clearance 47.18 ml/min; Glucose 227 mg/dL (74-106); Potassium 3.6 mmol/L (3.5-5.1); Sodium Level 132 mmol/L (136-145)
--- NOTE | 2020-09-21 15:36 | ED.RN ---
Pt was ambulatory to [facility]. C/O CP 01/16 after short period of ambulation. Pt sts pain decreased after resting in bed. notified.
[2020-09-21 15:57] LABS: BNP,B-Type NATRIURETIC PEPTIDE 96.2 pg/mL (0-100)
[2020-09-21] MEDS: Nitroglycerin SL (ED/IMG/CATH) 0.4 MG TABLET SUBLINGUAL (16:04)
--- NOTE | 2020-09-21 16:44 | HP.PCM_ITS ---
<July Reyna PET WALKER - Last Filed: 09/21/20 17:01> Problem List (1) Pleural effusion Status: Chronic (2) Hemoptysis Status: Resolved (3) MARK (obstructive sleep apnea) Status: Chronic (4) Asthma with COPD Status: Chronic Comment: FEV1 65% (5) Obesity Status: Chronic Qualifiers: Obesity type: due to excess calories Obesity classification: adult class 2 (BMI 35 - 39.9) Serious obesity comorbidity presence: with serious comorbidity Body mass index: BMI 35.0-35.9 Qualified Code(s): E66.01 - Morbid (severe) obesity due to excess calories; Z68.35 - Body mass index [BMI] 35.0-35.9, adult (6) GERD (gastroesophageal reflux disease) Status: Chronic (7) Type 2 diabetes mellitus Status: Chronic (8) Generalized anxiety disorder Status: Chronic (9) Dermatomyositis Status: Chronic (10) Hypertension Status: Chronic Qualifiers: Hypertension type: essential hypertension Qualified Code(s): I10 - Essential (primary) hypertension (11) Unstable angina pectoris due to coronary arteriosclerosis Status: Inactive (12) Atherosclerotic heart disease of [place] coronary artery without angina pectoris Status: Chronic Qualifiers: [place] vs. transplanted heart: [place] heart Qualified Code(s): I25.10 - Atherosclerotic heart disease of [place] coronary artery without angina pectoris Comment: Double vessel CAD of the LAD and DIAG#2 Successful PTCA/RACHEL ostial DIAG with a 2.25 x 12 Promus Synergy stent; Successful PTCA/RACHEL mid LAD with a 2.5 x 20 Promus Synergy. Per ANGELO @ [facility] 12/08/2018 (13) Chest pain Status: Acute (14) Smoking Status: Resolved (15) Chronic respiratory failure Status: Chronic Qualifiers: Respiratory failure complication: hypoxia Qualified Code(s): J96.11 - Chronic respiratory failure with hypoxia Comment: On home oxygen (16) Muscular dystrophy Status: Chronic (17) Hyponatremia Status: Chronic (18) Hypothyroidism Status: Chronic Qualifiers: Hypothyroidism type: acquired Qualified Code(s): E03.9 - Hypothyroidism, unspecified (19) COPD (chronic obstructive pulmonary disease) Status: Chronic (20) Depression Status: Chronic (21) [place] esophagus Status: Chronic (22) Postprandial bloating Status: Chronic History of Present Illness Date of Admission: 09/21/20 Chief Complaint: Chest pain. The patient is a 70 year old F who presents to the emergency room due to chest pain and shortness of breath. Patient states she was riding a motorized cart around the grocery store today when she suddenly developed chest pain which radiated under her left breast with associated shortness of breath. Patient states her symptoms began around 3 PM. She denies lightheadedness, diaphoresis, nausea. She states pain improved upon arriving to the emergency room. She then went to ambulate to the restroom and had recurrence of symptoms. Patient states she did move furniture yesterday, she denies symptoms during this activity. She denies cough, fever, chills. Denies other associated symptoms or complaints. Patient received nitro in ER and her symptoms have currently resolved. She has a past medical history of COPD with chronic toxic respiratory failure, type 2 diabetes mellitus, CAD with history of PCI/RACHEL to ostial diagonal and mid LAD December 2018, hypertension, anxiety, depression, muscular dystrophy, history of tobacco use, obesity, GERD. Past Medical History Past Medical History (Chronic Problems): Chronic Problems (Last Reviewed 09/12/20 @ 13:59 by Gladys Andujar) MARK (obstructive sleep apnea) (Chronic) Asthma with COPD (Chronic) FEV1 65% Obesity (Chronic) GERD (gastroesophageal reflux disease) (Chronic) Type 2 diabetes mellitus (Chronic) Generalized anxiety disorder (Chronic) Dermatomyositis (Chronic) Hypertension (Chronic) Atherosclerotic heart disease of [place] coronary artery without angina pectoris (Chronic) Double vessel CAD of the LAD and DIAG#2 Successful PTCA/RACHEL ostial DIAG with a 2.25 x 12 Promus Synergy stent; Successful PTCA/RACHEL mid LAD with a 2.5 x 20 Promus Synergy. Per ANGELO @ [facility] 12/08/2018 Chronic respiratory failure (Chronic) On home oxygen Muscular dystrophy (Chronic) Hyponatremia (Chronic) Hypothyroidism (Chronic) COPD (chronic obstructive pulmonary disease) (Chronic) Depression (Chronic) [place] esophagus (Chronic) Postprandial bloating (Chronic) Medical History: Medical History (Last Reviewed 09/12/20 @ 13:59 by Gladys Andujar) Hypertension (Chronic) I10 Atherosclerotic heart disease of [place] coronary artery without angina pectoris (Chronic) I25.10 Double vessel CAD of the LAD and DIAG#2 Successful PTCA/RACHEL ostial DIAG with a 2.25 x 12 Promus Synergy stent; Successful PTCA/RACHEL mid LAD with a 2.5 x 20 Promus Synergy. Per ANGELO @ [facility] 12/08/2018 COPD (chronic obstructive pulmonary disease) (Chronic) J44.9 Depression (Chronic) F32.9 Heart disease I51.9 History of constipation Z87.19 Lung disease J98.4 SOB (shortness of breath) R06.02 Allergies amoxicillin [Amoxicillin] Allergy (Intermediate, Verified 09/21/20 14:52) Rash gabapentin [From Neurontin] Allergy (Verified 09/21/20 14:52) Shortness of breath levofloxacin [From Levaquin] Allergy (Verified 09/21/20 14:52) Hives is allergic to the red dye in the pill form, states she is fine with the iv form. pseudoephedrine HCl [From Sudafed] Allergy (Verified 09/21/20 14:52) Shortness of breath red dye Allergy (Verified 09/21/20 14:52) Hives codeine Adverse Reaction (Verified 09/21/20 14:52) HEADACHE Home Medications: Ambulatory Orders Medication Instructions Recorded atorvastatin 80 mg tablet 80 mg PO QHS #90 tab 11/17/19 clopidogrel 75 mg tablet 75 mg PO DAILY #90 tab 11/21/19 pantoprazole 40 mg tablet,delayed 40 mg PO DAILY #60 tab 01/17/20 release Acetaminophen 1,000 mg PO TID PRN #1 tab 03/16/20 metformin 500 mg tablet,extended 1,000 mg PO QPM #180 tab 05/09/20 release 24 hr ipratropium 0.5 mg-albuterol 3 mg 3 ml INHALATION Q4H PRN PRN #180 ml 07/11/20 (2.5 mg base)/3 mL nebulization soln albuterol sulfate 90 mcg/actuation 2 puff INHALATION Q6H PRN #18 g 07/12/20 aerosol inhaler metoprolol tartrate 25 mg tablet 12.5 mg PO BID #90 tab 07/13/20 Citalopram [Celexa] 40 mg PO QHS 07/15/20 losartan 25 mg tablet 25 mg PO DAILY #90 tab 08/08/20 nitroglycerin 0.4 mg sublingual 0.4 mg SUBLINGUAL Q5-15M #25 tab 08/13/20 tablet insulin glargine 100 unit/mL (3 34 unit SC QPM ml 08/20/20 mL) subcutaneous pen insulin lispro 100 unit/mL See Rx Instructions SC TID ml 08/20/20 subcutaneous pen furosemide 40 mg tablet 20 mg PO DAILY #30 tab 09/03/20 alprazolam 0.5 mg tablet 0.5 mg PO DAILY PRN #30 tab 09/09/20 doxycycline monohydrate 50 mg 100 mg PO BID 10 Days #40 tab 09/12/20 tablet Risperidone 1 mg PO QHS 09/21/20 Surgical History: Surgical History (Last Reviewed 09/12/20 @ 13:59 by Gladys Andujar) History of cholecystectomy Z90.49 Stented coronary artery Onset Date: 12/28/18 Z95.5 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 Successful PTCA/RACHEL mid LAD with a 2.5 x 20 Promus Synergy, post dilated with a 2.5 x 12 NC Balloon after DIAG stent deployed; 75%-->0%, no dissection. 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 Lives: Alone Smoking Status: Former smoker Alcohol: None Drugs: None - *Family History Sibling Family History: Family History (Last Reviewed 09/21/20 @ 16:54 by July Reyna NP, PET WALKER-C) Brother Heart disease Mother Colon cancer Heart disease History Items: Heart Disease - Brother of massive AK at age 50 Maternal Family History: Family History (Last Reviewed 09/21/20 @ 16:54 by July Reyna NP, PET WALKER-C) Brother Heart disease Mother Colon cancer Heart disease History Items: Heart Disease, Hypertension Paternal Family History: Family History (Last Reviewed 09/21/20 @ 16:54 by July Reyna NP, PET WALKER-C) Brother Heart disease Mother Colon cancer Heart disease History Items: Hypertension, Pulmonary Disease Review of Systems Constitutional: Denies: Chills, Fever, Weight Change HEENT: Denies: Head Aches, Sinus Congestion, Sinus Drainage Cardiovascular: Reports: Chest Pain. Denies: Edema, Light Headedness, Palpitations, Syncope Respiratory: Reports: Shortness of breath upon exertion. Denies: Cough, Sputum production, Wheezing Gastrointestinal: Denies: Abdominal Pain, Nausea, Vomiting Genitourinary: Denies: Dysuria Musculoskeletal: Denies: Joint Pain, Joint Tenderness Skin: Denies: Rash, Wounds Neurological: Denies: Numbness, Tingling, Focal weakness Psychiatric: Reports: Anxiety, Depression Hematologic/ Lymphatic: Denies: Easy Bruising, Easy Bleeding VTE Information - Inpt Only VTE Present on Admission: No VTE Mechan Device Prophylaxis: None VTE Pharm Prophylaxis ordered?: Yes Patient Problems: Active and Suspected Problems (Last Reviewed 09/12/20 @ 13:59 by Gladys Andujar) Chest pain (Acute) - Physical Exam Vitals/I&O's: Vital Signs Temp Pulse Resp BP Pulse Ox 98.1 F 70 20 H 144/58 H 100 09/21/20 14:52 09/21/20 16:04 09/21/20 15:35 09/21/20 16:04 09/21/20 15:35 Oxygen Flow Rate (L/min) 2 Oxygen Delivery Method Room Air Weight: 204 lb 2.369 oz Body Mass Index (BMI) 37.3 Finger Stick Blood Glucose 552 General: Alert, Oriented x3, Cooperative HEENT: Atraumatic, PERRLA, EOMI, Normocephalic Neck: Supple, No JVD, Negative Carotid Bruits Lungs: Clear to auscultation, Diminished Cardiovascular: Regular rate, No murmurs Abdomen: Bowel Sounds Present, Soft, Non Tender Extremities: No clubbing, No cyanosis, No edema, Capillary Refill Less than 3 Seconds Skin: No rashes, No breakdown Musculoskeletal: No Tenderness to Palpation of Joints or Extremities Neurological: Cranial nerves II-XII grossly intact, Neuro grossly intact Psych/Mental Status: Normal Affect, Appropriate Laboratory Results 09/21/20 15:02: WBC 13.7 H, RBC 3.91 L, Hgb 10.6 L, Hct 33.9 L, MCV 86.7, MCH 27.1, MCHC 31.3 L, RDW Std Deviation 42.1, RDW Coeff of Malcom 13.3, Plt Count 343, MPV 11.5, Immature Gran % (Auto) 0.700, Neut % (Auto) 82.1 H, Lymph % (Auto) 11.2 L, [place] % (Auto) 4.3, Eos % (Auto) 1.1, Baso % (Auto) 0.6, Absolute Neuts (auto) 11.2 H, Absolute Lymphs (auto) 1.54, Nucleated RBC % 0 09/21/20 15:02: Sodium 132 L, Potassium 3.6, Chloride 99, Carbon Dioxide 27.0, Anion Gap 6, BUN 12, Creatinine 0.89, Estim Creat Clear Calc 47.18, Est GFR (M DRD) Af Amer 81, Est GFR (MDRD) Non-Af 67, BUN/Creatinine Ratio 13.5, Glucose 227 H, Calcium 9.0, Troponin I < 0.015 09/21/20 15:02: B-Natriuretic Peptide 96.2 Assessment/Plan All Active Problems (Last Reviewed 09/12/20 @ 13:59 by Gladys Andujar) Chest pain (Acute) Smoking (Resolved) Hemoptysis (Resolved) Pleural effusion (Resolved) 1. Chest pain, rule out ACS-history of CAD with PCI/RACHEL to ostial diagonal and mid LAD December 2018-initial troponin negative. EKG without ST-T changes. Continue statin, Plavix, metoprolol, losartan. Trend enzymes. If enzymes remain negative, plan for stress test. 2. COPD with chronic hypoxic respiratory failure-on 4 L nasal cannula at baseline. Continue supplement oxygen to maintain O2 at or above 90%. As needed albuterol aerosol. 3. Type 2 diabetes [id number] ACHS with SSI. Continue home Lantus regimen. Hold oral regimen. Repeat hemoglobin A1c as prior A1c 2018 11%. 4. Hypertension-stable, continue home losartan and metoprolol regimen. 5. Depression/anxiety-continue home citalopram, risperidone regimen. 6. Muscular dystrophy 7. Tobacco dependence-encouraged cessation. 8. Obesity-encouraged diet and lifestyle modifications. 9. GERD-continue omeprazole regimen. DVT prophylaxis-Lovenox subcu This patient was seen by HELEN CobbC under the supervision of Dr. Moraes. <Cindi Moraes - Last Filed: 09/21/20 18:24> Problem List (1) Pleural effusion Status: Resolved (2) MARK (obstructive sleep apnea) Status: Chronic (3) Asthma with COPD Status: Chronic Comment: FEV1 65% (4) Obesity Status: Chronic Qualifiers: Obesity type: due to excess calories Obesity classification: adult class 2 (BMI 35 - 39.9) Serious obesity comorbidity presence: with serious comorbidity Body mass index: BMI 35.0-35.9 Qualified Code(s): E66.01 - Morbid (severe) obesity due to excess calories; Z68.35 - Body mass index [BMI] 35.0-35.9, adult (5) GERD (gastroesophageal reflux disease) Status: Chronic (6) Type 2 diabetes mellitus Status: Chronic (7) Generalized anxiety disorder Status: Chronic (8) Dermatomyositis Status: Chronic (9) Hypertension Status: Chronic Qualifiers: Hypertension type: essential hypertension Qualified Code(s): I10 - Essential (primary) hypertension (10) Unstable angina pectoris due to coronary arteriosclerosis Status: Inactive (11) Atherosclerotic heart disease of [place] coronary artery without angina pectoris Status: Chronic Qualifiers: [place] vs. transplanted heart: [place] heart Qualified Code(s): I25.10 - Atherosclerotic heart disease of [place] coronary artery without angina pectoris Comment: Double vessel CAD of the LAD and DIAG#2 Successful PTCA/RACHEL ostial DIAG with a 2.25 x 12 Promus Synergy stent; Successful PTCA/RACHEL mid LAD with a 2.5 x 20 Promus Synergy. Per ANGELO @ [facility] 12/08/2018 (12) Chest pain Status: Acute (13) Smoking Status: Resolved (14) Chronic respiratory failure Status: Chronic Qualifiers: Respiratory failure complication: hypoxia Qualified Code(s): J96.11 - Chronic respiratory failure with hypoxia Comment: On home oxygen (15) Muscular dystrophy Status: Chronic (16) Hyponatremia Status: Chronic (17) Hypothyroidism Status: Chronic Qualifiers: Hypothyroidism type: acquired Qualified Code(s): E03.9 - Hypothyroidism, unspecified (18) COPD (chronic obstructive pulmonary disease) Status: Chronic (19) Depression Status: Chronic (20) [place] esophagus Status: Chronic Qualifiers: (21) Postprandial bloating Status: Chronic History of Present Illness I agree with the above and the following is representation of my independent history and physical examination Ms. Vargas is a 70 year old WF who appears much older than stated age with a past medical history of CAD status post stenting in 2019, HTN, HPL, DM-2, MARK, COPD- O2 dependent at 4 L, GERD, dermatomyositis, chronic hyponatremia, anxiety, depression and obesity who presented to the emergency department on 09/21/2020 with chest pain and shortness of breath. The patient reported when she arrived that the pain started approximately 90 minutes prior to arrival and that she was relaxing on the couch when it started. She states it was associated with shortness of breath and radiated into her left arm into her left back into the area of her shoulder blade. She denied any associated nausea or diaphoresis but states that this time she has some slight indigestion. Her symptoms resolved in the emergency department and she got up to walk to the bathroom and her chest pain reoccurred and improved with nitroglycerin. She reports with her last stenting which was performed in December 2018 to the LAD and first diagonal that she had shortness of breath when she came to the emergency department, had an abnormal stress test, and then went to the [facility] for stenting. She stopped smoking 10 months ago. Vital signs in the emergency department are relatively normal with mild hypertension and systolic blood pressures in the 140s. Oxygen saturation was 100% on 4 L nasal cannula. CBC shows mild leukocytosis and a mild anemia which appears to be stable. Her BMP shows mild hyponatremia at 132 which is stable, normal BUN and creatinine, blood glucose of 227, a BNP of 96.2, and her troponin is negative. Chest x-ray shows some basilar atelectasis on the left and is stable in comparison. Her EKG shows normal sinus rhythm with no acute ST-T wave changes. She will be admitted to PCU with a consult to cardiology given her previous history. Past Medical History Medical History: Medical History (Last Reviewed 09/21/20 @ 18:[address] Cindi Moraes, DO) Hypertension (Chronic) I10 Atherosclerotic heart disease of [place] coronary artery without angina pectoris (Chronic) I25.10 Double vessel CAD of the LAD and DIAG#2 Successful PTCA/RACHEL ostial DIAG with a 2.25 x 12 Promus Synergy stent; Successful PTCA/RACHEL mid LAD with a 2.5 x 20 Promus Synergy. Per ANGELO @ [facility] 12/08/2018 COPD (chronic obstructive pulmonary disease) (Chronic) J44.9 Depression (Chronic) F32.9 Heart disease I51.9 History of constipation Z87.19 Lung disease J98.4 SOB (shortness of breath) R06.02 Allergies amoxicillin [Amoxicillin] Allergy (Intermediate, Verified 09/21/20 14:52) Rash gabapentin [From Neurontin] Allergy (Verified 09/21/20 14:52) Shortness of breath levofloxacin [From Levaquin] Allergy (Verified 09/21/20 14:52) Hives is allergic to the red dye in the pill form, states she is fine with the iv form. pseudoephedrine HCl [From Sudafed] Allergy (Verified 09/21/20 14:52) Shortness of breath red dye Allergy (Verified 09/21/20 14:52) Hives codeine Adverse Reaction (Verified 09/21/20 14:52) HEADACHE Surgical History: Surgical History (Last Reviewed 09/21/20 @ 18:[address] Cindi Moraes DO) History of cholecystectomy Z90.49 Stented coronary artery Onset Date: 12/28/18 Z95.5 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 Successful PTCA/RACHEL mid LAD with a 2.5 x 20 Promus Synergy, post dilated with a 2.5 x 12 NC Balloon after DIAG stent deployed; 75%-->0%, no dissection. Smoking Status: Former smoker - Quit 10 months ago - *Family History Sibling Family History: Family History (Last Reviewed 09/21/20 @ 18:[address] Cindi Moraes DO) Brother Heart disease Mother Colon cancer Heart disease Maternal Family History: Family History (Last Reviewed 09/21/20 @ 18:[address] Cindi Moraes DO) Brother Heart disease Mother Colon cancer Heart disease Paternal Family History: Family History (Last Reviewed 09/21/20 @ 18:[address] Cindi Moraes DO) Brother Heart disease Mother Colon cancer Heart disease Review of Systems Constitutional: Denies: Anorexia, Chills, Fever, Malaise, Weakness, Weight Change, Fatigue Eyes: Denies: Blurred vision, Cataracts, Conjunctivae Inflammation, Double vision, Drainage, Eyelid Inflammation, Pain, Redness, Vision Change HEENT: Denies: Difficulty Hearing, Ear Pain, Eye Pain, Head Aches, Hearing Changes, Nasal bleeding, Nasal Congestion, Post Nasal Drip, Sinus Congestion, Sinus Drainage, Sore Throat, Visual Changes Cardiovascular: Reports: Chest Pain - Radiates to left shoulder and back, Heaviness. Denies: Claudication, Chest Pressure, Chest Tightness, Edema, Light Headedness, Orthopnea, Palpitations Respiratory: Reports: Shortness of breath upon exertion. Denies: Cough, Hemoptysis, Pleuritic Pain, Shortness of Breath, Shortness of breath at rest, Sputum production, Wheezing Gastrointestinal: Reports: - - Planes of indigestion. Denies: Abdominal Pain, Constipation, Diarrhea, Dyspepsia, Hematemesis, Hematochezia, Nausea, Melena, Vomiting Genitourinary: Denies: Frequency, Hematuria, Hesitancy, Incontinence, Nocturia, Retention, Urgency Musculoskeletal: Reports: Back Pain, Hand Pain, Shoulder Pain - Left. Denies: Joint Pain, Joint stiffness, Joint swelling, Joint Tenderness, Muscle pain, Neck Pain Skin: Denies: Dryness, Jaundice, Lesions, Pruritis, Wounds Neurological: Denies: Balance problems, Blurred vision, Double vision, Change in Speech, Slurred speech, Confusion, Difficulty swallowing, Focal weakness, Headaches, Incoordination, Numbness, Tingling, Tremor, Seizures Psychiatric: Reports: Anxiety, Depression Endocrine: Denies: Change in Body Habitus, Heat/ Cold Intolerance, Polydipsia, Polyuria Hematologic/ Lymphatic: Denies: Adenopathy, Anemia, Easy Bruising, Easy Bleeding, Petechiae, Purpura - Physical Exam Vitals/I&O's: Vital Signs Temp Pulse Resp BP Pulse Ox 98.2 F 68 16 143/61 H 100 09/21/20 17:35 09/21/20 17:55 09/21/20 17:35 09/21/20 17:35 09/21/20 17:35 Oxygen Flow Rate (L/min) 4 Oxygen Delivery Method Nasal Cannula Weight: 90.265 kg Body Mass Index (BMI) 36.3 Finger Stick Blood Glucose 552 General: Alert, Oriented x3, Cooperative, No apparent distress, Well developed, Well nourished, - - Obese white female, sitting on the edge of the bed, appears comfortable, appears older than stated age HEENT: Atraumatic, PERRLA, EOMI, Normocephalic Oral: Moist Mucosa, No Gingival or Mucosal Lesions/ Ulcerations, - - Poor dentition Neck: Supple, No JVD, Negative Carotid Bruits, No Nodes, No Nuchal Rigidity, Trachea Midline, Thyroid Normal Size and Texture Lungs: Clear to auscultation, No rhonchi, No wheeze, No rales, Diminished - Loosely Cardiovascular: Regular rate, Regular Rhythm, Normal S1, Normal S2, No murmurs, No Ectopic Activity, No rub noted, No Gallop Abdomen: Bowel Sounds Present, Soft, Non Tender, Non-Distended, Obese Extremities: No clubbing, No cyanosis, No edema, Capillary Refill Less than 3 Seconds, Peripheral Pulses Normal Skin: No rashes, No breakdown Musculoskeletal: No Tenderness to Palpation of Joints or Extremities, No Muscle Wasting, Arthritic Changes Lymphatic: No Cervical, Supraclavicular, or Inguinal Adenopathy Neurological: Cranial nerves II-XII grossly intact, Deep Tendon Reflexes 2+/4 and Symmetrical, Neuro grossly intact, Motor Exam 5/5 strength throughout, M uscle tone normal, Sensory exam intact to light touch and pain, Coordination normal Laboratory Results 09/21/20 15:02: WBC 13.7 H, RBC 3.91 L, Hgb 10.6 L, Hct 33.9 L, MCV 86.7, MCH 27.1, MCHC 31.3 L, RDW Std Deviation 42.1, RDW Coeff of Malcom 13.3, Plt Count 343, MPV 11.5, Immature Gran % (Auto) 0.700, Neut % (Auto) 82.1 H, Lymph % (Auto) 11.2 L, [place] % (Auto) 4.3, Eos % (Auto) 1.1, Baso % (Auto) 0.6, Absolute Neuts (auto) 11.2 H, Absolute Lymphs (auto) 1.54, Nucleated RBC % 0 09/21/20 15:02: Sodium 132 L, Potassium 3.6, Chloride 99, Carbon Dioxide 27.0, Anion Gap 6, BUN 12, Creatinine 0.89, Estim Creat Clear Calc 47.18, Est GFR (MDRD) Af Amer 81, Est GFR (MDRD) Non-Af 67, BUN/Creatinine Ratio 13.5, Glucose 227 H, Calcium 9.0, Troponin I < 0.015 09/21/20 15:02: B-Natriuretic Peptide 96.2 Current Medications Acetaminophen (Acetaminophen 325 Mg Tablet) 650 mg PO Q6H PRN PRN PRN Reason: Pain Score 1-10/Temp > 100.7 F Albuterol Sulfate (Albuterol 2.5 Mg/3 Ml Vial.Neb.) 2.5 mg INHALATION Q2H PRN PRN PRN Reason: SOB/Wheezing Alprazolam (Alprazolam 0.5 Mg Tablet) 0.5 mg PO DAILY PRN PRN Reason: ANXIETY Aspirin (Aspirin E.C. 81 Mg Tablet) 81 mg PO DAILY@0800 [facility] Atorvastatin Calcium (Atorvastatin Calcium 80 Mg Tablet) 80 mg PO QHS [facility] Citalopram Hydrobromide (Citalopram 20 Mg Tablet) 40 mg PO QHS [facility] Clopidogrel Bisulfate (Clopidogrel Bisulfate 75 Mg Tablet) 75 mg PO DAILY [facility] Enoxaparin Sodium (Enoxaparin 40 Mg/0.4 Ml Syringe) 40 mg SC DAILY [facility] Furosemide (Furosemide 20 Mg Tablet) 20 mg PO DAILY [facility] Sodium Chloride () 250 mls @ 15 mls/hr IV .[id number] PRN PRN Reason: Saline Flush Sodium Chloride () 250 mls @ 15 mls/hr IV .[id number] PRN PRN Reason: Additional IVPB Infusion Insulin Glargine (Insulin Glargine 100 Units/Ml Pen) 34 units SC QPM@2200 [facility] Insulin Human Lispro (Insulin Lispro 100 Unit/Ml Insuln.Pen) 0 unit SC ACHS PILY; Protocol Losartan Potassium (Losartan Potassium 25 Mg Tablet) 25 mg PO DAILY [facility] Metoprolol Tartrate (Metoprolol Tartrate 25 Mg Tablet) 12.5 mg PO BID [facility] Nitroglycerin (Nitroglycerin (Inpatient Use) 0.4 Mg Tab.Subl) 0.4 mg SUBLINGUAL Q5M PRN PRN Reason: CARDIAC/CHEST PAIN Ondansetron HCl (Ondansetron 4 Mg/2 Ml Vial) 4 mg IV Q8H PRN PRN PRN Reason: NAUSEA/VOMITING Pantoprazole Sodium (Pantoprazole Sodium 40 Mg Tablet) 40 mg PO DAILY [facility] Risperidone (Risperidone 1 Mg Tablet) 1 mg PO QHS [facility] Sodium Chloride (0.9% Saline Lock 10 Ml Syringe) 10 - 40 ml IV UD PRN PRN Reason: SALINE FLUSH Assessment/Plan ASSESSMENT Chest pain CAD Chronic hypoxic respiratory failure COPD -Baseline O2 4 L DM-2 HTN 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 lipids and hemoglobin A1c -Continue home medications for blood pressure -Hold metformin in anticipation of cardiac catheterization -SSI -BGT before meals and at bedtime -Cardiac carb controlled diet -Continue high-dose statin -As needed albuterol -As needed nitroglycerin -Consult cardiology -Full code Inpatient E&M: 10217 Init Hosp L3
[2020-09-21] MEDS: Aspirin 81 MG TAB.CHEW 324 MG PO (17:05)
--- NOTE | 2020-09-21 17:31 | EKG12_ITS ---
Test Reason : CP ADMIN Blood Pressure : / mmHG Vent. Rate : 068 BPM Atrial Rate : 068 BPM P-R Int : 170 ms QRS Dur : 082 ms QT Int : 442 ms P-R-T Axes : 054 022 029 degrees QTc Int : 469 ms Normal sinus rhythm Normal ECG When compared with ECG of 27-AUG-2020 20:10, No significant change was found Confirmed by BANG MELVIN, ROSALIA ([id number]), loan expeditor JAVIER COLBY ([id number]) on 09/24/2020 10:59:48 AM Referred By: SABRINA Confirmed By:ROSALIA CUENCA MD
[2020-09-21] MEDS: Citalopram 20 MG Tablet PO (21:19)
[2020-09-21] MEDS: Atorvastatin Calcium 80 MG Tablet PO (21:19)
[2020-09-21] MEDS: Metoprolol Tartrate 25 MG Tablet 12.5 MG PO (21:19)
[2020-09-21] MEDS: Pantoprazole Sodium 40 MG Tablet PO (21:19)
[2020-09-21] MEDS: ALPRAZolam 0.5 MG Tablet PO (21:19)
[2020-09-21] MEDS: Clopidogrel Bisulfate 75 MG Tablet PO (21:20)
[2020-09-21] MEDS: Losartan Potassium 25 MG Tablet PO (21:20)
[2020-09-21] MEDS: Insulin Lispro 100 UNIT/ML INSULN.PEN SC (21:25)
[2020-09-21] MEDS: RisperiDONE 1 MG Tablet PO (21:26)
[2020-09-21] MEDS: CLARIFY ORDER NOTE (22:53)
[2020-09-22] VITALS (12 sets, daily range): BP systolic 108–140; BP diastolic 58–63; PULSE 58–68; RESP 16–18; TEMP 36.3–36.8; O2SAT 98–100
[2020-09-22 00:46] LABS: Bedside Glucose 278 mg/dL (70-110)
[2020-09-22 06:12] LABS: Absolute Lymphocyte Count 1.79 X10^3/uL (0.83-4.51); Absolute Neutrophil Count 6.5 X10^3/uL (2.0-7.7); Basophil# 0.08 X10^3/uL; Basophil% 0.9 % (0-1); Eosinophil# 0.36 X10^3/uL; Eosinophils% 3.8 % (0-5); Hematocrit 32.4 % (37-47); Hemoglobin 10.1 g/dL (12.0-15.0); Lymphocyte # 1.79 X10^3/ul (4.0); Lymphocyte % 19.1 % (19-41); Mean Corp Hgb Conc 31.2 g/dL (32-36); Mean Corpuscular Hgb 27.2 pg (27.0-32.0); Mean Corpuscular Volume 87.1 fL (81-99); Mean Platelet Vol. 11.4 fl (6.2-12.0); Monocyte# 0.63 X10^3/uL; Monocyte% 6.7 % (0-10); NRBC Flagged by Analyzer 0 % (0-5); Neutrophil % 69.2 % (47-70); Platelet Count 311 K/mm3 (150-450); RBC Distribution Width CV 13.2 % (11.6-14.6); RBC Distribution Width SD 41.7 fl (35.1-43.9); Red Blood Count 3.72 M/mm3 (4.2-5.4); White Blood Count 9.4 K/mm3 (4.4-11.0)
[2020-09-22 07:03] LABS: AST(SGOT) 12 U/L (15-37); Alanine Aminotransfer ALT/SGPT 17 U/L (13-56); Alkaline Phosphatase 145 U/L (45-117); Anion Gap 7 (5-15); BUN 13 mg/dL (7-18); BUN/Creat Ratio 18.7 RATIO (10-20); Bilirubin, Direct < 0.05 mg/dL (0.00-0.30); Chloride 105 mmol/L (98-107); Cholesterol 101 mg/dL (200); Creatinine, Serum 0.69 mg/dL (0.55-1.02); EST Glomerular Filtration Rate 89 mL/min (>60); Est Glom Filt Rate - Afr Amer 108 mL/min (>60); Estimated Creatinine Clearance 41.99 ml/min; Globulin 2.9 g/dL (2.2-4.2); Glucose 128 mg/dL (74-106); High Density Lipoprotein 51 mg/dL; Potassium 3.4 mmol/L (3.5-5.1); Protein, Total 5.9 g/dL (6.4-8.2); Sodium Level 141 mmol/L (136-145); Triglycerides 76 mg/dL; Very Low Density Lipoprotein 15 mg/dL (5-40)
[2020-09-22 07:05] LABS: Bedside Glucose 137 mg/dL (70-110)
[2020-09-22 07:30] LABS: Hemoglobin A1c 6.2 % (3.8-5.6)
[2020-09-22] MEDS: Aspirin E.C. 81 MG Tablet PO (08:31)
[2020-09-22] MEDS: Losartan Potassium 25 MG Tablet PO (08:31)
[2020-09-22] MEDS: Furosemide 20 MG Tablet PO (08:32)
[2020-09-22] MEDS: Metoprolol Tartrate 25 MG Tablet 12.5 MG PO ×2 (08:32→22:35)
[2020-09-22] MEDS: Pantoprazole Sodium 40 MG Tablet PO (08:33)
[2020-09-22] MEDS: Clopidogrel Bisulfate 75 MG Tablet PO (08:33)
[2020-09-22] MEDS: Enoxaparin 40 MG/0.4 ML Syringe SC (08:34)
--- NOTE | 2020-09-22 10:29 | PCM.PROGNOTE ---
<Salvador Reynassica RECREATION OFFICER - Last Filed: 09/22/20 10:35> Patient Problems: Active and Suspected Problems (Last Reviewed 09/21/20 @ 18:[address] Cindi Moraes DO) Chest pain (Acute) Subjective: Patient seen and examined. Denies further chest pain. Denies exertional dyspnea. No acute events overnight. - Physical Exam Vitals/I&O's: Vital Signs Temp Pulse Resp BP Pulse Ox 97.3 F L 62 16 108/58 L 99 09/22/20 08:20 09/22/20 08:32 09/22/20 08:20 09/22/20 08:20 09/22/20 08:20 Oxygen Flow Rate (L/min) 4 Oxygen Delivery Method Nasal Cannula Weight: 199 lb Body Mass Index (BMI) 36.3 Finger Stick Blood Glucose 552 Intake and Output for Last 24 Hours 09/20/20 09/21/20 09/22/20 23:59 23:59 23:59 Intake Total 400 / 400 Balance 400 / 400 General: Alert, Oriented x3, Cooperative HEENT: Atraumatic, PERRLA, EOMI, Normocephalic Neck: Supple, No JVD, Negative Carotid Bruits Lungs: Clear to auscultation, Diminished Cardiovascular: Regular rate, No murmurs Abdomen: Bowel Sounds Present, Soft, Non Tender, Non-Distended Extremities: No clubbing, No cyanosis, No edema, Capillary Refill Less than 3 Seconds Skin: No rashes, No breakdown Musculoskeletal: No Tenderness to Palpation of Joints or Extremities Neurological: Cranial nerves II-XII grossly intact, Neuro grossly intact Psych/Mental Status: Normal Affect, Appropriate Laboratory Results 09/21/20 15:02: WBC 13.7 H, RBC 3.91 L, Hgb 10.6 L, Hct 33.9 L, MCV 86.7, MCH 27.1, MCHC 31.3 L, RDW Std Deviation 42.1, RDW Coeff of Malcom 13.3, Plt Count 343, MPV 11.5, Immature Gran % (Auto) 0.700, Neut % (Auto) 82.1 H, Lymph % (Auto) 11.2 L, [place] % (Auto) 4.3, Eos % (Auto) 1.1, Baso % (Auto) 0.6, Absolute Neuts (auto) 11.2 H, Absolute Lymphs (auto) 1.54, Nucleated RBC % 0 09/21/20 15:02: Sodium 132 L, Potassium 3.6, Chloride 99, Carbon Dioxide 27.0, Anion Gap 6, BUN 12, Creatinine 0.89, Estim Creat Clear Calc 47.18, Est GFR (MDRD) Af Amer 81, Est GFR (MDRD) Non-Af 67, BUN/Creatinine Ratio 13.5, Glucose 227 H, Calcium 9.0, Troponin I < 0.015 09/21/20 15:02: B-Natriuretic Peptide 96.2 09/21/20 18:27: Troponin I < 0.015 09/21/20 20:55: Troponin I < 0.015 09/21/20 21:22: POC Glucose 278 H 09/22/20 05:02: WBC 9.4, RBC 3.72 L, Hgb 10.1 L, Hct 32.4 L, MCV 87.1, MCH 27.2, MCHC 31.2 L, RDW Std Deviation 41.7, RDW Coeff of Malcom 13.2, Plt Count 311, MPV 11.4, Immature Gran % (Auto) 0.300, Neut % (Auto) 69.2, Lymph % (Auto) 19.1, [place] % (Auto) 6.7, Eos % (Auto) 3.8, Baso % (Auto) 0.9, Absolute Neuts (auto) 6.5, Absolute Lymphs (auto) 1.79, Nucleated RBC % 0 09/22/20 05:23: Sodium 141, Potassium 3.4 L, Chloride 105, Carbon Dioxide 29.0, Anion Gap 7, BUN 13, Creatinine 0.69, Estim Creat Clear Calc 41.99, Est GFR (MDRD) Af Amer 108, Est GFR (MDRD) Non-Af 89, BUN/Creatinine Ratio 18.7, Glucose 128 H, Calcium 9.0, Total Bilirubin 0.20, Direct Bilirubin < 0.05, AST 12 L, ALT 17, Alkaline Phosphatase 145 H, Total Protein 5.9 L, Albumin 3.0 L, Globulin 2.9, Triglycerides 76, Cholesterol 101, LDL Cholesterol 35, VLDL Cholesterol 15, HDL Cholesterol 51, TSH 1.80 09/22/20 05:23: Hemoglobin A1c 6.2 H 09/22/20 06:51: POC Glucose 137 H Current Medications Acetaminophen (Acetaminophen 325 Mg Tablet) 650 mg PO Q6H PRN PRN PRN Reason: Pain Score 1-10/Temp > 100.7 F Albuterol Sulfate (Albuterol 2.5 Mg/3 Ml Vial.Neb.) 2.5 mg INHALATION Q2H PRN PRN PRN Reason: SOB/Wheezing Alprazolam (Alprazolam 0.5 Mg Tablet) 0.5 mg PO DAILY PRN PRN Reason: ANXIETY Last Admin: 09/21/20 21:19 Dose: 0.5 mg Documented by: Aspirin (Aspirin E.C. 81 Mg Tablet) 81 mg PO DAILY@0800 [facility] Last Admin: 09/22/20 08:31 Dose: 81 mg Documented by: Atorvastatin Calcium (Atorvastatin Calcium 80 Mg Tablet) 80 mg PO QHS [facility] Last Admin: 09/21/20 21:19 Dose: 80 mg Documented by: Citalopram Hydrobromide (Citalopram 20 Mg Tablet) 20 mg PO QHS [facility] Last Admin: 09/21/20 21:19 Dose: 20 mg Documented by: Clopidogrel Bisulfate (Clopidogrel Bisulfate 75 Mg Tablet) 75 mg PO DAILY [facility] Last Admin: 09/22/20 08:33 Dose: 75 mg Documented by: Enoxaparin Sodium (Enoxaparin 40 Mg/0.4 Ml Syringe) 40 mg SC DAILY [facility] Last Admin: 09/22/20 08:34 Dose: 40 mg Documented by: Furosemide (Furosemide 20 Mg Tablet) 20 mg PO DAILY [facility] Last Admin: 09/22/20 08:32 Dose: 20 mg Documented by: Sodium Chloride () 250 mls @ 15 mls/hr IV .[id number] PRN PRN Reason: Saline Flush Sodium Chloride () 250 mls @ 15 mls/hr IV .[id number] PRN PRN Reason: Additional IVPB Infusion Insulin Glargine (Insulin Glargine 100 Units/Ml Pen) 34 units SC QPM@2200 [facility] Last Admin: 09/21/20 21:22 Dose: 34 units Documented by: Insulin Human Lispro (Insulin Lispro 100 Unit/Ml Insuln.Pen) 0 unit SC [facility]; Protocol Last Admin: 09/22/20 07:03 Dose: Not Given Documented by: Losartan Potassium (Losartan Potassium 25 Mg Tablet) 25 mg PO DAILY [facility] Last Admin: 09/22/20 08:31 Dose: 25 mg Documented by: Metoprolol Tartrate (Metoprolol Tartrate 25 Mg Tablet) 12.5 mg PO BID [facility] Last Admin: 09/22/20 08:32 Dose: 12.5 mg Documented by: Nitroglycerin (Nitroglycerin (Inpatient Use) 0.4 Mg Tab.Subl) 0.4 mg SUBLINGUAL Q5M PRN PRN Reason: CARDIAC/CHEST PAIN Ondansetron HCl (Ondansetron 4 Mg/2 Ml Vial) 4 mg IV Q8H PRN PRN PRN Reason: NAUSEA/VOMITING Pantoprazole Sodium (Pantoprazole Sodium 40 Mg Tablet) 40 mg PO DAILY [facility] Last Admin: 09/22/20 08:33 Dose: 40 mg Documented by: Risperidone (Risperidone 1 Mg Tablet) 1 mg PO QHS [facility] Last Admin: 09/21/20 21:26 Dose: 1 mg Documented by: Sodium Chloride (0.9% Saline Lock 10 Ml Syringe) 10 - 40 ml IV UD PRN PRN Reason: SALINE FLUSH Medical Necessity - Tobacco Use Smoking Status: Former smoker - Quit 10 months ago Assessment/Plan All Active Problems (Last Reviewed 09/21/20 @ 18:[address] Cindi Moraes, DO) Chest pain (Acute) Smoking (Resolved) Hemoptysis (Resolved) Pleural effusion (Resolved) 1. Chest pain, rule out ACS-history of CAD with PCI/RACHEL to ostial diagonal and mid LAD December 2018-initial troponin negative. EKG without ST-T changes. Continue statin, Plavix, metoprolol, losartan. Enzymes negative. Given history, cardiology consult placed. Plan for stress test in a.m. unless cardiology feels more aggressive testing is necessary. 2. COPD with chronic hypoxic respiratory failure-on 4 L nasal cannula at baseline. Continue supplement oxygen to maintain O2 at or above 90%. As needed albuterol aerosol. 3. Type 2 diabetes [id number] ACHS with SSI. Continue home Lantus regimen. Hold oral regimen. 4. Hypertension-stable, continue home losartan and metoprolol regimen. 5. Depression/anxiety-continue home citalopram, risperidone regimen. 6. Muscular dystrophy 7. Tobacco dependence-encouraged cessation. 8. Obesity-encouraged diet and lifestyle modifications. 9. GERD-continue omeprazole regimen. DVT prophylaxis-Lovenox subcu This patient was seen by SYMONE Cobb under the supervision of Dr. Berumen. <Prashant Berumen - Last Filed: 09/22/20 10:58> - Physical Exam Vitals/I&O's: Vital Signs Temp Pulse Resp BP Pulse Ox 97.3 F L 62 16 108/58 L 99 09/22/20 08:20 09/22/20 08:32 09/22/20 08:20 09/22/20 08:20 09/22/20 08:20 Oxygen Flow Rate (L/min) 4 Oxygen Delivery Method Nasal Cannula Weight: 90.265 kg Body Mass Index (BMI) 36.3 Finger Stick Blood Glucose 552 Intake and Output for Last 24 Hours 09/20/20 09/21/20 09/22/20 23:59 23:59 23:59 Intake Total 400 / 400 Balance 400 / 400 Laboratory Results 09/21/20 15:02: WBC 13.7 H, RBC 3.91 L, Hgb 10.6 L, Hct 33.9 L, MCV 86.7, MCH 27.1, MCHC 31.3 L, RDW Std Deviation 42.1, RDW Coeff of Malcom 13.3, Plt Count 343, MPV 11.5, Immature Gran % (Auto) 0.700, Neut % (Auto) 82.1 H, Lymph % (Auto) 11.2 L, [place] % (Auto) 4.3, Eos % (Auto) 1.1, Baso % (Auto) 0.6, Absolute Neuts (auto) 11.2 H, Absolute Lymphs (auto) 1.54, Nucleated RBC % 0 09/21/20 15:02: Sodium 132 L, Potassium 3.6, Chloride 99, Carbon Dioxide 27.0, Anion Gap 6, BUN 12, Creatinine 0.89, Estim Creat Clear Calc 47.18, Est GFR (MDRD) Af Amer 81, Est GFR (MDRD) Non-Af 67, BUN/Creatinine Ratio 13.5, Glucose 227 H, Calcium 9.0, Troponin I < 0.015 09/21/20 15:02: B-Natriuretic Peptide 96.2 09/21/20 18:27: Troponin I < 0.015 09/21/20 20:55: Troponin I < 0.015 09/21/20 21:22: POC Glucose 278 H 09/22/20 05:02: WBC 9.4, RBC 3.72 L, Hgb 10.1 L, Hct 32.4 L, MCV 87.1, MCH 27.2, MCHC 31.2 L, RDW Std Deviation 41.7, RDW Coeff of Malcom 13.2, Plt Count 311, MPV 11.4, Immature Gran % (Auto) 0.300, Neut % (Auto) 69.2, Lymph % (Auto) 19.1, [place] % (Auto) 6.7, Eos % (Auto) 3.8, Baso % (Auto) 0.9, Absolute Neuts (auto) 6.5, Absolute Lymphs (auto) 1.79, Nucleated RBC % 0 09/22/20 05:23: Sodium 141, Potassium 3.4 L, Chloride 105, Carbon Dioxide 29.0, Anion Gap 7, BUN 13, Creatinine 0.69, Estim Creat Clear Calc 41.99, Est GFR (MDRD) Af Amer 108, Est GFR (MDRD) Non-Af 89, BUN/Creatinine Ratio 18.7, Glucose 128 H, Calcium 9.0, Total Bilirubin 0.20, Direct Bilirubin < 0.05, AST 12 L, ALT 17, Alkaline Phosphatase 145 H, Total Protein 5.9 L, Albumin 3.0 L, Globulin 2.9, Triglycerides 76, Cholesterol 101, LDL Cholesterol 35, VLDL Cholesterol 15, HDL Cholesterol 51, TSH 1.80 09/22/20 05:23: Hemoglobin A1c 6.2 H 09/22/20 06:51: POC Glucose 137 H Current Medications Acetaminophen (Acetaminophen 325 Mg Tablet) 650 mg PO Q6H PRN PRN PRN Reason: Pain Score 1-10/Temp > 100.7 F Albuterol Sulfate (Albuterol 2.5 Mg/3 Ml Vial.Neb.) 2.5 mg INHALATION Q2H PRN PRN PRN Reason: SOB/Wheezing Alprazolam (Alprazolam 0.5 Mg Tablet) 0.5 mg PO DAILY PRN PRN Reason: ANXIETY Last Admin: 09/21/20 21:19 Dose: 0.5 mg Documented by: Aspirin (Aspirin E.C. 81 Mg Tablet) 81 mg PO DAILY@0800 [facility] Last Admin: 09/22/20 08:31 Dose: 81 mg Documented by: Atorvastatin Calcium (Atorvastatin Calcium 80 Mg Tablet) 80 mg PO QHS [facility] Last Admin: 09/21/20 21:19 Dose: 80 mg Documented by: Citalopram Hydrobromide (Citalopram 20 Mg Tablet) 20 mg PO QHS [facility] Last Admin: 09/21/20 21:19 Dose: 20 mg Documented by: Clopidogrel Bisulfate (Clopidogrel Bisulfate 75 Mg Tablet) 75 mg PO DAILY [facility] Last Admin: 09/22/20 08:33 Dose: 75 mg Documented by: Enoxaparin Sodium (Enoxaparin 40 Mg/0.4 Ml Syringe) 40 mg SC DAILY [facility] Last Admin: 09/22/20 08:34 Dose: 40 mg Documented by: Furosemide (Furosemide 20 Mg Tablet) 20 mg PO DAILY [facility] Last Admin: 09/22/20 08:32 Dose: 20 mg Documented by: Sodium Chloride () 250 mls @ 15 mls/hr IV .[id number] PRN PRN Reason: Saline Flush Sodium Chloride () 250 mls @ 15 mls/hr IV .[id number] PRN PRN Reason: Additional IVPB Infusion Insulin Glargine (Insulin Glargine 100 Units/Ml Pen) 34 units SC QPM@2200 [facility] Last Admin: 09/21/20 21:22 Dose: 34 units Documented by: Insulin Human Lispro (Insulin Lispro 100 Unit/Ml Insuln.Pen) 0 unit SC [facility]; Protocol Last Admin: 09/22/20 10:44 Dose: 4 units Documented by: Losartan Potassium (Losartan Potassium 25 Mg Tablet) 25 mg PO DAILY [facility] Last Admin: 09/22/20 08:31 Dose: 25 mg Documented by: Metoprolol Tartrate (Metoprolol Tartrate 25 Mg Tablet) 12.5 mg PO BID [facility] Last Admin: 09/22/20 08:32 Dose: 12.5 mg Documented by: Nitroglycerin (Nitroglycerin (Inpatient Use) 0.4 Mg Tab.Subl) 0.4 mg SUBLINGUAL Q5M PRN PRN Reason: CARDIAC/CHEST PAIN Ondansetron HCl (Ondansetron 4 Mg/2 Ml Vial) 4 mg IV Q8H PRN PRN PRN Reason: NAUSEA/VOMITING Pantoprazole Sodium (Pantoprazole Sodium 40 Mg Tablet) 40 mg PO DAILY [facility] Last Admin: 09/22/20 08:33 Dose: 40 mg Documented by: Risperidone (Risperidone 1 Mg Tablet) 1 mg PO QHS [facility] Last Admin: 09/21/20 21:26 Dose: 1 mg Documented by: Sodium Chloride (0.9% Saline Lock 10 Ml Syringe) 10 - 40 ml IV UD PRN PRN Reason: SALINE FLUSH Assessment/Plan This patient was seen in conjunction with SYMONE Cobb . I have independently interviewed and examined the patient and reviewed pertinent historical, laboratory, and other data. Please refer to SYMONE Cobb note for details of this patient's presentation, findings, and recommendations. I have reviewed SYMONE Cobb note and concur with documented findings. In brief, 70-year-old lady admitted with chest pain Physical Examination: GENERAL: cooperative HEENT: Atraumatic; EYES; Anicteric, Normal Conjunctiva NECK; supple, normal thyroid, RESPIRATORY: Diminished to auscultation CARDIOVASCULAR: Regular S1 S2, GI: soft, normoactive bowel sounds, MUSCULOSKELETAL: no muscle waisting NEURO: Awake; no lateralizing signs. SKIN: No Rash PSYCH; Flat affect Assessment: 1. Chest pain 2. COPD 3. Diabetes mellitus type 2 4. Essential hypertension 5. Muscular dystrophy 6. Obesity with BMI of 36.4 7. Depression with anxiety 8. GERD 9. Tobacco dependence 10. DVT prophylaxis Recommendations: 1. I have discussed the results of my overview and impressions with the patient 2. Options for management were reviewed OBSV E&M: [id number] Subsequent observation care L3
[2020-09-22] MEDS: Potassium Chloride Oral Tablet 20 MEQ 40 MEQ PO (10:41)
[2020-09-22] MEDS: Insulin Lispro 100 UNIT/ML INSULN.PEN SC ×3 (10:44→22:41)
[2020-09-22 11:01] LABS: Bedside Glucose 240 mg/dL (70-110)
[2020-09-22 16:21] LABS: Bedside Glucose 176 mg/dL (70-110)
--- NOTE | 2020-09-22 18:13 | PCM.CONS.C ---
Reason for Consult Date of Consultation: 09/22/20 Reason for Consultation: CP History of Present Illness: The patient is a 70 year old F [with past medical of coronary artery disease status post PCI to the LAD diagonal bifurcation (bifurcation stenting) in December 2018 coming to [facility] because of chest pain. Initially the chest pain was nonexertional. However she states that it was worse with exertion. It was in the epigastric and retrosternal region radiating down the left arm. Initially sharp and then became like a pressure. Prior to the PCI patient had shortness of breath and an abnormal stress test. Patient had an episode of chest pain in the hospital as well when she walked to the restroom. Her cardiac enzymes have been negative. Review of systems: All systems reviewed. All else is negative except that in HPI.] Past Medical History Allergies/Adverse Reactions: Allergies amoxicillin [Amoxicillin] Allergy (Intermediate, Verified 09/21/20 14:52) Rash gabapentin [From Neurontin] Allergy (Verified 09/21/20 14:52) Shortness of breath levofloxacin [From Levaquin] Allergy (Verified 09/21/20 14:52) Hivtj is allergic to the red dye in the pill form, states she is fine with the iv form. pseudoephedrine HCl [From Sudafed] Allergy (Verified 09/21/20 14:52) Shortness of breath red dye Allergy (Verified 09/21/20 14:52) Hives codeine Adverse Reaction (Verified 09/21/20 14:52) HEADACHE Home Medications: Ambulatory Orders Medication Instructions Recorded atorvastatin 80 mg tablet 80 mg PO QHS #90 tab 11/17/19 clopidogrel 75 mg tablet 75 mg PO DAILY #90 tab 11/21/19 pantoprazole 40 mg tablet,delayed 40 mg PO DAILY #60 tab 01/17/20 release Acetaminophen 1,000 mg PO TID PRN #1 tab 03/16/20 metformin 500 mg tablet,extended 1,000 mg PO QPM #180 tab 05/09/20 release 24 hr ipratropium 0.5 mg-albuterol 3 mg 3 ml INHALATION Q4H PRN PRN #180 ml 07/11/20 (2.5 mg base)/3 mL nebulization soln albuterol sulfate 90 mcg/actuation 2 puff INHALATION Q6H PRN #18 g 12/04/20 aerosol inhaler metoprolol tartrate 25 mg tablet 12.5 mg PO BID #90 tab 07/13/20 Citalopram [Celexa] 20 mg PO QHS 07/15/20 losartan 25 mg tablet 25 mg PO DAILY #90 tab 08/08/20 nitroglycerin 0.4 mg sublingual 0.4 mg SUBLINGUAL Q5-15M #25 tab 08/13/20 tablet insulin glargine 100 unit/mL (3 34 unit SC QPM ml 08/20/20 mL) subcutaneous pen insulin lispro 100 unit/mL See Rx Instructions SC TID ml 08/20/20 subcutaneous pen furosemide 40 mg tablet 20 mg PO DAILY #30 tab 09/03/20 alprazolam 0.5 mg tablet 0.5 mg PO DAILY PRN #30 tab 09/09/20 doxycycline monohydrate 50 mg 100 mg PO BID 10 Days #40 tab 09/12/20 tablet Risperidone 1 mg PO QHS 09/21/20 Past Medical History (Chronic Problems): Chronic Problems (Last Reviewed 09/21/20 @ 18:[address] Cindi Moraes DO) MARK (obstructive sleep apnea) (Chronic) Asthma with COPD (Chronic) FEV1 65% Obesity (Chronic) GERD (gastroesophageal reflux disease) (Chronic) Type 2 diabetes mellitus (Chronic) Generalized anxiety disorder (Chronic) Dermatomyositis (Chronic) Hypertension (Chronic) Atherosclerotic heart disease of [place] coronary artery without angina pectoris (Chronic) Double vessel CAD of the LAD and DIAG#2 Successful PTCA/RACHEL ostial DIAG with a 2.25 x 12 Promus Synergy stent; Successful PTCA/RACHEL mid LAD with a 2.5 x 20 Promus Synergy. Per ANGELO @ 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 Cindi Moraes DO) Brother Heart disease Mother Colon cancer Heart disease History Items: Heart Disease - Brother of massive UT at age 50 Maternal Family History: Family History (Last Reviewed 09/21/20 @ 18:[address] Cindi Moraes DO) Brother Heart disease Mother Colon cancer Heart disease History Items: Heart Disease, Hypertension Paternal Family History: Family History (Last Reviewed 09/21/20 @ 18:[address] Cindi Moraes DO) Brother Heart disease Mother Colon cancer Heart disease History Items: Hypertension, Pulmonary Disease Lives: Alone Smoking Status: Former smoker - Quit 10 months ago Alcohol: None Drugs: None Objective: Vital Signs Temp Pulse Resp BP Pulse Ox 97.8 F 68 18 132/59 H 100 09/22/20 14:14 09/22/20 14:59 09/22/20 14:14 09/22/20 14:14 09/22/20 14:14 Oxygen Flow Rate (L/min) 4 Oxygen Delivery Method Nasal Cannula Weight: 199 lb Body Mass Index (BMI) 36.3 Finger Stick Blood Glucose 552 Intake and Output for Last 24 Hours 09/20/20 09/21/20 09/22/20 23:59 23:59 23:59 Intake Total 400 / 400 Balance 400 / 400 General: Awake, Alert, Oriented x 3 HEENT: Atraumatic Oral: Moist Mucosa Neck: Supple Lungs: Clear to auscultation Cardiovascular: Regular Rhythm Abdomen: Soft Extremities: No edema Psych/Mental Status: Appropriate 09/21/20 18:27: Troponin I < 0.015 09/21/20 20:55: Troponin I < 0.015 09/22/20 05:02: WBC 9.4, RBC 3.72 L, Hgb 10.1 L, Hct 32.4 L, MCV 87.1, MCH 27.2, MCHC 31.2 L, Plt Count 311, MPV 11.4, Immature Gran % (Auto) 0.300, Neut % (Auto) 69.2, Lymph % (Auto) 19.1, [place] % (Auto) 6.7, Eos % (Auto) 3.8, Baso % (Auto) 0.9, Absolute Neuts (auto) 6.5, Nucleated RBC % 0 09/22/20 05:23: Sodium 141, Potassium 3.4 L, Chloride 105, Carbon Dioxide 29.0, Anion Gap 7, BUN 13, Creatinine 0.69, Est GFR (MDRD) Af Amer 108, Est GFR (MDRD) Non-Af 89, BUN/Creatinine Ratio 18.7, Glucose 128 H, Calcium 9.0, Total Bilirubin 0.20, Direct Bilirubin < 0.05, Triglycerides 76, Cholesterol 101, LDL Cholesterol 35, VLDL Cholesterol 15, HDL Cholesterol 51 09/22/20 05:23: Hemoglobin A1c 6.2 H Rhythm: EKG: ECHO: Stress Test: Cardiac Cath: PCI: CT Surgery: Holter monitor: EPS: PPM: CXR: Chest CT Scan: Assessment/Plan 1. Chest pain: Cardiac enzymes have been negative. However patient did have a bifurcation stent in December 2018. Her chest pain is concerning for unstable angina. I think will be reasonable to proceed with coronary angiography rather than a stress test. Risks and benefits were explained to the patient in detail. Patient is willing to proceed.
[2020-09-22] MEDS: Atorvastatin Calcium 80 MG Tablet PO (22:35)
[2020-09-22] MEDS: Citalopram 20 MG Tablet PO (22:35)
[2020-09-22] MEDS: RisperiDONE 1 MG Tablet PO (22:36)
[2020-09-22] MEDS: ALPRAZolam 0.5 MG Tablet PO (22:50)
[2020-09-22 23:06] LABS: Bedside Glucose 216 mg/dL (70-110)
[2020-09-23] VITALS (13 sets, daily range): BP systolic 102–131; BP diastolic 47–87; PULSE 50–62; RESP 14–16; TEMP 36.6–36.7; O2SAT 99–100
[2020-09-23 06:31] LABS: Bedside Glucose 140 mg/dL (70-110)
[2020-09-23 06:41] LABS: Anion Gap 4 (5-15); BUN 15 mg/dL (7-18); BUN/Creat Ratio 20.6 RATIO (10-20); Chloride 105 mmol/L (98-107); Creatinine, Serum 0.73 mg/dL (0.55-1.02); EST Glomerular Filtration Rate 84 mL/min (>60); Est Glom Filt Rate - Afr Amer 102 mL/min (>60); Estimated Creatinine Clearance 41.99 ml/min; Glucose 150 mg/dL (74-106); Potassium 3.7 mmol/L (3.5-5.1); Sodium Level 140 mmol/L (136-145)
--- NOTE | 2020-09-23 08:16 | CASEMGMT ---
According to the [facility] website, the following are in-network tertiary facilities: [facility], [facility], [facility], [facility], [facility], [facility], [employer], and . Julio Cesar CANSECO CM
--- NOTE | 2020-09-23 08:54 | PCM.PN.CARD ---
Subjectve: The patient is now status post diagnostic cardiac catheterization. She has had no new acute complaints. Objective: Vital Signs Temp Pulse Resp BP Pulse Ox 98.1 F 58 L 16 102/47 L 100 09/23/20 03:17 09/23/20 06:58 09/23/20 03:17 09/23/20 03:17 09/23/20 03:17 Oxygen Flow Rate (L/min) 4 Oxygen Delivery Method Room Air Weight: 199 lb Body Mass Index (BMI) 36.3 Finger Stick Blood Glucose 552 Intake and Output for Last 24 Hours 09/21/20 09/22/20 09/23/20 23:59 23:59 23:59 Intake Total 400 / 400 Output Total 100 / 100 Balance 400 / 400 -100 / -100 General: Awake, Alert, Oriented x 3, Cooperative, No Acute Distress, Obese HEENT: Atraumatic, Normocephalic, PERRL, EOMI, Sclera Non Icteric Neck: Supple, Good ROM, No JVD Lungs: Clear to auscultation Cardiovascular: Regular Rhythm, Normal S1, Normal S2 Vascular: Normal Radial Pulses Abdomen: Bowel Sounds Present, Soft Extremities: No edema Neurological: No Focal Motor or Sensory Deficit Psych/Mental Status: Appropriate 09/23/20 05:12: Sodium 140, Potassium 3.7, Chloride 105, Carbon Dioxide 31.0, Anion Gap 4 L, BUN 15, Creatinine 0.73, Est GFR (MDRD) Af Amer 102, Est GFR (MDRD) Non-Af 84, BUN/Creatinine Ratio 20.6 H, Glucose 150 H, Calcium 9.0 Rhythm: Sinus rhythm Cardiac Cath: CORONARY ANGIOGRAPHY DOMINANCE: Right Dominant LEFT HEART ASSESSMENT Left Ventricular Ejection Fraction: by LV Gram 55 % Normal LV wall motion Elevated Left Ventricular End Diastolic Pressure LVEDP: 16 mmHg LEFT MAIN: Angiographically normal LEFT ANTERIOR DESCENDING ARTERY: MID LAD: Previously placed stent is patent DIAGONAL 1: Ostial - 25 % Stenosis, Proximal - Previously placed stent is patent CIRCUMFLEX ARTERY: PROX CIRC: Mild luminal irregularities RIGHT CORONARY ARTERY: PROX RCA: Mild luminal irregularities VALVE FINDINGS: Mitral Valve Insufficiency - Grade 1 AORTIC ROOT: Angiographically normal Medical Necessity - Tobacco Use Smoking Status: Former smoker - Quit 10 months ago Assessment/Plan 1. CAD status post LAD/diagonal branch PCI/stent (2018) The patient has undergone evaluation for concerns of chest discomfort and shortness of breath/dyspnea. This has included noninvasive evaluation. Included transthoracic echocardiogram on 07-16-2020. Results are as noted below. Interpretation Summary The study was technically difficult. Contrast injection was performed. Left ventricular systolic function is normal. The estimated ejection fraction is 60 %. Mild (1+) mitral valve insufficiency. Mild tricuspid valve insufficiency. Mild diffuse aortic valve thickening. Calcified aortic root. Right ventricular systolic pressure estimated to be 37 mmHg. Diastolic function is indeterminate. Today she underwent further evaluation with diagnostic cardiac catheterization. She did not appear to have angiographic progression of underlying [place] vessel disease and/or evidence of angiographically significant in-stent restenosis. Her overall LV systolic function appeared to be preserved. She did appear to have an element of mild mitral valve regurgitation. Thus at the present time it did not appear the patient demonstrated cardiovascular findings to explain her discomfort, etc. Thus this would raise a question as to her discomfort may be noncardiac and potentially gastrointestinal in etiology. My cardiac standpoint she should continue risk factor evaluation and care and medical therapy as deemed appropriate. She should continue with noncardiac evaluation of her symptoms/possible GI evaluation/possible GI medical therapy. 2. Hyperlipidemia The patient will continue medical therapy as deemed appropriate. 3. Hypertension The patient's blood pressure should be followed with adjustment of medications as needed. 4. Diabetes mellitus The patient will continue evaluation care per internal medicine. 5. COPD/MARK The patient does have underlying pulmonary disease. This may be contributing to her chronic sensation of shortness of breath and dyspnea. 6. 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 Thus noting her cardiovascular evaluation did not demonstrate angiographically significant appearing CAD/in-stent restenosis she may need to continue noncardiac evaluation of her gastrointestinal disease process as a possible etiology for her symptoms. Overall, the patient will continue cardiovascular medical therapy as deemed appropriate with continued future outpatient cardiovascular follow-up as deemed appropriate while she continues to follow with her other physicians for her noncardiovascular issues. This note was generated using a voice recognition system and there may be incorrect words, spelling or punctuation that were not noted when reviewing the office note prior to saving.
[2020-09-23] MEDS: 0.9% Normal Saline 1,000 ML 75 ML IV (09:06)
[2020-09-23] MEDS: Metoprolol Tartrate 25 MG Tablet 12.5 MG PO (09:07)
[2020-09-23] MEDS: Pantoprazole Sodium 40 MG Tablet PO (09:07)
[2020-09-23] MEDS: Furosemide 20 MG Tablet PO (09:07)
[2020-09-23] MEDS: Losartan Potassium 25 MG Tablet PO (09:15)
--- NOTE | 2020-09-23 09:18 | CL.D_ITS ---
Patient Name: TIM CEDILLO Study Date: 09/23/2020 Performing: Ethan Lozano MD Ht: 62 inches 157 cm : 1950 Wt: 198.7 lbs 90 kg Age: 70 Gender: female BSA: 1.9 PROCEDURE(S) PERFORMED [id number] CLINICAL PROFILE AND INDICATIONS Indications: Suspected CAD Heart Failure: None Stress/Imaging Stress/Image Study Performed: No Angina Classification Anginal Classification w/in 2 Weeks: CCS III CAD Presentations: Unstable angina. CONCLUSIONS Elevated Left Ventricular End Diastolic Pressure (mild) Normal LV size, wall motion,and systolic function LVEF: by LV gram 55 % Telida Multivessel CAD LAD: stent: patent DX1: stent: patent RECOMMENDATIONS Risk factor modification Medical therapy DESCRIPTION OF PROCEDURE The patient arrived to the procedure lab. The risks and benefits of the procedure as well as a full d escription of our services here and current unavailability of surgical backup were fully explained to the patient and/or their significant other prior to the catheterization. The Timeout was completed, verifying the correct patient and procedure. The patient's procedural site was prepped and draped in the usual fashion. Local anesthetic was given subcutaneously to right radial region with Lidocaine 2% . Using a modified Seldinger technique, arterial access was obtained via the right radial artery, a 6 Fr sheath was inserted. Left Coronary Artery selective angiography was performed in multiple views u sing a 5 Fr. 4.0 [place] catheter. Right Coronary Artery selective angiography was then performed in mu ltiple views using a 5 Fr. 4.0 [place] catheter. Left Ventriculography was performed in LUONG projection using a 5 Fr. Pigtail catheter. LV to AO pullback pressures were then recorded.The arterial sheath was pulled and a TR Band was applied for hemostasis CORONARY ANGIOGRAPHY DOMINANCE: Right Dominant LEFT HEART ASSESSMENT Left Ventricular Ejection Fraction: by LV Gram 55 % Normal LV wall motion Elevated Left Ventricular End Diastolic Pressure LVEDP: 16 mmHg LEFT MAIN: Angiographically normal LEFT ANTERIOR DESCENDING ARTERY: MID LAD: Previously placed stent is patent DIAGONAL 1: Ostial - 25 % Stenosis, Proximal - Previously placed stent is patent CIRCUMFLEX ARTERY: PROX CIRC: Mild luminal irregularities RIGHT CORONARY ARTERY: PROX RCA: Mild luminal irregularities VALVE FINDINGS: Mitral Valve Insufficiency - Grade 1 AORTIC ROOT: Angiographically normal COMPLICATIONS No Complications PROCEDURE MEDICATIONS Versed 1 mg IV Fentanyl 50 mcg IV Oxygen: 4 L/min via nasal cannula Baby Aspirin (81mg) 1 Tabs PO @ 09/23/2020 07:42:07 Heparin diluted in 23cc Heparinized saline. Patient given 10cc IA of this solution. 09/23/2020 08:06: 29 Plavix 75 mg PO 09/23/2020 07:42:18 Verapamil 2.5mg, Ntg 100mcgs, 2000 units of Heparin diluted in 23cc Heparinized saline. Patient give n 10cc IA of this solution. 09/23/2020 08:06:29 SUMMARY OF HEMODYNAMIC DATA Time AIR REST ECG 07:42:39 AO 109/56 (75) SA 08:09:01 AO 107/55 (75) 08:12:26 LV 131/13, 16 08:22:49 LV 142/7, 28 08:22:56 LV 133/13, 13 08:23:45 LV 138/10, 19 08:23:52 LVp 122/18, 33 08:23:57 AOp 142/65 (97) 08:24:03 Signed By Ethan Lozano MD On 09/23/2020 09:18:08 Signed By Ethan Lozano MD On 09/23/2020 09:18:00 Ethan Lozano MD
--- NOTE | 2020-09-23 10:48 | CASEMGMT ---
HARLEEN LUCIANO assessment: Face to Face with patient for initial transition planning/care coordination assessment. HARLEEN LUCIANO introduced self and role at [facility], pt voices understanding and consents to assessment at this time. Pt is sitting up in bed in no distress at this time. Pt is A/Ox4 at this time and answers all questions appropriately at this time. Care providers, pharmacy, and demographics verified at this time. Presentation: CP started approx. 1.5hrs ago-underr left arm as well. SOB, wears 4L nc at all times Admitting dx: CP, CAD PCP: Santy Specialists: arpita Nuno [facility] Insurance: AnthM[employer] Prescription Benefit: AnthR-pt inquiring about a bill she has received from the hospital and states she has been on AnthMCR since 08/09/20. Call to [place] in [place] and she states pt's bills have been sent thru [facility] and the only bill pt is receiving from the hospital would be co-pay or deductible, pt updated at this time. Living Will/HPOA: Pt states does not have LW/HPOA and declines AD info at this time. LNOK: aFrideh Vargas, [id number] Living Arrangements: Pt states lives alone in apartment with a couple steps in and states no concerns at home at this time. Pt states is independent with ADL's. Transportation: Pt states drives self and states no transportation concerns at this time. DME/HHC: Pt states has 4L nc continuous home oxygen thru [employer] and states no need for any further DME at this time. Pt states has been to [facility] in the past and has had HHC in the past. Pt states no concerns with going home at time of discharge. Pt states is retired. Pt states does not smoke cigarettes or drink ETOH. Pt states no further concerns/needs at this time. CM to follow for any further discharge planning/needs. Advised pt to ask for CM if any further questions/concerns/needs arise, voices understanding. Pt Goal: Home [place] HARLEEN LUCIANO
[2020-09-23] MEDS: Insulin Lispro 100 UNIT/ML INSULN.PEN SC (11:09)
[2020-09-23 11:21] LABS: Bedside Glucose 187 mg/dL (70-110)
--- NOTE | 2020-09-23 11:32 | PCM.DC ---
- Discharge Diagnoses Current Active Problems: Current Active and Chronic Problems (Last Reviewed 09/21/20 @ 18:[address] 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 Per ANGELO @ [facility] 12/08/2018 Chest pain (Acute) Chronic respiratory failure (Chronic) On home oxygen Muscular dystrophy (Chronic) Hyponatremia (Chronic) Hypothyroidism (Chronic) COPD (chronic obstructive pulmonary disease) (Chronic) Depression (Chronic) De La Vega esophagus (Chronic) Postprandial bloating (Chronic) You will use the following diet at home:: Cardiac Discharge Activity: Return to Normal Activity Call your doctor if you observe: Shortness of breath, Dizziness, Fainting spells, Chest pain Additional Instructions: Hold metformin for 48 hours following heart cath. Allergies/Adverse Reactions: Allergies amoxicillin [Amoxicillin] Allergy (Intermediate, Verified 09/21/20 14:52) Rash gabapentin [From Neurontin] Allergy (Verified 09/21/20 14:52) Shortness of breath levofloxacin [From Levaquin] Allergy (Verified 09/21/20 14:52) Hives is allergic to the red dye in the pill form, states she is fine with the iv form. pseudoephedrine HCl [From Sudafed] Allergy (Verified 09/21/20 14:52) Shortness of breath red dye Allergy (Verified 09/21/20 14:52) Hives codeine Adverse Reaction (Verified 09/21/20 14:52) HEADACHE Medications to take at Discharge atorvastatin 80 mg tablet 80 mg PO QHS #90 tab 11/17/19 clopidogrel 75 mg tablet 75 mg PO DAILY #90 tab 11/21/19 pantoprazole 40 mg tablet,delayed release 40 mg PO DAILY #60 tab 01/17/20 Acetaminophen 1,000 mg PO TID PRN #1 tab 03/16/20 metformin 500 mg tablet,extended release 24 hr 1,000 mg PO QPM #180 tab 05/09/20 ipratropium 0.5 mg-albuterol 3 mg (2.5 mg base)/3 mL nebulization soln 3 ml INHALATION Q4H PRN PRN #180 ml 07/11/20 albuterol sulfate 90 mcg/actuation aerosol inhaler 2 puff INHALATION Q6H PRN #18 g 07/12/20 metoprolol tartrate 25 mg tablet 12.5 mg PO BID #90 tab 07/13/20 Citalopram [Celexa] 20 mg PO QHS 07/15/20 losartan 25 mg tablet 25 mg PO DAILY #90 tab 08/08/20 nitroglycerin 0.4 mg sublingual tablet 0.4 mg SUBLINGUAL Q5-15M #25 tab 08/13/20 insulin glargine 100 unit/mL (3 mL) subcutaneous pen 34 unit SC QPM ml 08/20/20 insulin lispro 100 unit/mL subcutaneous pen See Rx Instructions SC TID ml 08/20/20 furosemide 40 mg tablet 20 mg PO DAILY #30 tab 09/03/20 alprazolam 0.5 mg tablet 0.5 mg PO DAILY PRN #30 tab 09/09/20 Risperidone 1 mg PO QHS 09/21/20 Primary Care Physician: Billy Madera MD [Primary Care Provider] - Please follow up with your Primary Care Physician in: 1 Week Test Results: Test results from this visit will be discussed in further detail at your follow-up appointment, if applicable. Please Follow Up With: April Sarmiento, PA When: As scheduled Proposed Discharge Date: 09/23/20
--- NOTE | 2020-09-23 11:33 | PCM.DC.SUM ---
<AxelJuly SILVER BUFFER - Last Filed: 09/23/20 11:40> Discharge Date and Diagnosis - Problem List Patient Problems: Active and Suspected Problems (Last Updated 09/23/20 @ 11:54 by April Momin) Chest pain (Acute) Date of Admission: 09/21/20 Date of Discharge: 09/23/20 - Primary Discharge Diagnosis Acute Problems: Active Problems (Last Reviewed 09/21/20 @ 18:[address] Cindi Moraes, ) 1. Chest pain, ACS ruled out-history of CAD with PCI/RACHEL to ostial diagonal and mid LAD December 2018 2. COPD with chronic hypoxic respiratory failure 3. Type 2 diabetes mellitus 4. Hypertension 5. Depression/anxiety 6. Muscular dystrophy 7. Tobacco dependence 8. Obesity 9. GERD - Secondary Discharge Diagnosis Chronic Problems: Chronic Problems (Last Reviewed 09/21/20 @ 18:[address] Cindi Moraes DO) MARK (obstructive sleep apnea) (Chronic) Asthma with COPD (Chronic) FEV1 65% Obesity (Chronic) GERD (gastroesophageal reflux disease) (Chronic) Type 2 diabetes mellitus (Chronic) Generalized anxiety disorder (Chronic) Dermatomyositis (Chronic) Hypertension (Chronic) Atherosclerotic heart disease of [place] coronary artery without angina pectoris (Chronic) Double vessel CAD of the LAD and DIAG#2 Successful PTCA/RACHEL ostial DIAG with a 2.25 x 12 Promus Synergy stent; Successful PTCA/RACHEL mid LAD with a 2.5 x 20 Promus Synergy. Per ANGELO @ [facility] 12/08/2018 Chronic respiratory failure (Chronic) On home oxygen Muscular dystrophy (Chronic) Hyponatremia (Chronic) Hypothyroidism (Chronic) COPD (chronic obstructive pulmonary disease) (Chronic) Depression (Chronic) [place] esophagus (Chronic) Postprandial bloating (Chronic) Hospital Course and Treatment Imaging Results: Diagnostic Data Chest X-Ray 09/21/20 15:07 IMPRESSION: 1. Stable suboptimal evaluation of left lower lung, likely atelectasis and effusion. Recommend repeating high-quality diagnostic study for more definitive evaluation of left lower lobe. 2. Stable appearance since one month ago. Electronically Signed: Andrade Bagley MD at 15:44 EST Tel , Service support , Dr. Yun- Cardiology Operations: None Procedures: Cardiac catheterization Summary of Care Provided: The patient is a 70 year old F admitted 09/21/2020 due to chest pain. 1. Chest pain, ACS ruled out-history of CAD with PCI/RACHEL to ostial diagonal and mid LAD December 2018- EKG without ST-T changes. Continue statin, Plavix, metoprolol, losartan. Enzymes negative. Cardiology consulted during admission. Patient underwent heart cath which demonstrated patent stents, [place] multivessel CAD. Continue medical management. Follow-up with cardiology as scheduled. 2. COPD with chronic hypoxic respiratory failure-on 4 L nasal cannula at baseline. Continue supplement oxygen to maintain O2 at or above 90%. As needed albuterol aerosol. 3. Type 2 diabetes mellitus-continue home regimen. Hold metformin for 48 hours. 4. Hypertension-stable, continue home losartan and metoprolol regimen. 5. Depression/anxiety-continue home citalopram, risperidone regimen. 6. Muscular dystrophy 7. Tobacco dependence-encouraged cessation. 8. Obesity-encouraged diet and lifestyle modifications. 9. GERD-continue omeprazole regimen. General: Alert, Oriented x3, Cooperative HEENT: Atraumatic, PERRLA, EOMI, Normocephalic Neck: Supple, No JVD, Negative Carotid Bruits Lungs: Clear to auscultation, Diminished Cardiovascular: Regular rate, No murmurs Abdomen: Bowel Sounds Present, Soft, Non Tender, Non-Distended Extremities: No clubbing, No cyanosis, No edema, Capillary Refill Less than 3 Seconds Skin: No rashes, No breakdown Musculoskeletal: No Tenderness to Palpation of Joints or Extremities Neurological: Cranial nerves II-XII grossly intact, Neuro grossly intact Psych/Mental Status: Normal Affect, Appropriate Patient seen and examined prior to discharge. Physical assessment as noted above. Patient is stable for discharge with follow up recommendations as noted above. This patient was seen by SYMONE Cobb under the supervision of Dr. Mota. Patient Problems: Active and Suspected Problems (Last Updated 09/23/20 @ 11:54 by April Momin) Chest pain (Acute) - Physical Exam Vitals/I&O's: Vital Signs Temp Pulse Resp BP Pulse Ox 98 F 60 15 112/54 L 100 09/23/20 11:04 09/23/20 11:19 09/23/20 11:19 09/23/20 11:19 09/23/20 11:19 Oxygen Flow Rate (L/min) 4 Oxygen Delivery Method Nasal Cannula Weight: 199 lb Body Mass Index (BMI) 36.3 Finger Stick Blood Glucose 552 Intake and Output for Last 24 Hours 09/21/20 09/22/20 09/23/20 23:59 23:59 23:59 Intake Total 400 / 400 Output Total 100 / 100 Balance 400 / 400 -100 / -100 Laboratory Results 09/22/20 16:08: POC Glucose 176 H 09/22/20 22:25: POC Glucose 216 H 09/23/20 05:12: Sodium 140, Potassium 3.7, Chloride 105, Carbon Dioxide 31.0, Anion Gap 4 L, BUN 15, Creatinine 0.73, Estim Creat Clear Calc 41.99, Est GFR (MDRD) Af Amer 102, Est GFR (MDRD) Non-Af 84, BUN/Creatinine Ratio 20.6 H, Glucose 150 H, Calcium 9.0 09/23/20 06:11: POC Glucose 140 H 09/23/20 11:08: POC Glucose 187 H Current Medications Acetaminophen (Acetaminophen 325 Mg Tablet) 650 mg PO Q6H PRN PRN PRN Reason: Pain Score 1-10/Temp > 100.7 F Albuterol Sulfate (Albuterol 2.5 Mg/3 Ml Vial.Neb.) 2.5 mg INHALATION Q2H PRN PRN PRN Reason: SOB/Wheezing Alprazolam (Alprazolam 0.5 Mg Tablet) 0.5 mg PO DAILY PRN PRN Reason: ANXIETY Last Admin: 09/22/20 22:50 Dose: 0.5 mg Documented by: Aspirin (Aspirin E.C. 81 Mg Tablet) 81 mg PO DAILY@0800 [facility] Last Admin: 09/23/20 08:44 Dose: Not Given Documented by: Atorvastatin Calcium (Atorvastatin Calcium 80 Mg Tablet) 80 mg PO QHS [facility] Last Admin: 09/22/20 22:35 Dose: 80 mg Documented by: Citalopram Hydrobromide (Citalopram 20 Mg Tablet) 20 mg PO QHS [facility] Last Admin: 09/22/20 22:35 Dose: 20 mg Documented by: Clopidogrel Bisulfate (Clopidogrel Bisulfate 75 Mg Tablet) 75 mg PO DAILY [facility] Last Admin: 09/23/20 08:43 Dose: Not Given Documented by: Enoxaparin Sodium (Enoxaparin 40 Mg/0.4 Ml Syringe) 40 mg SC DAILY [facility] Last Admin: 09/23/20 09:02 Dose: Not Given Documented by: Furosemide (Furosemide 20 Mg Tablet) 20 mg PO DAILY [facility] Last Admin: 09/23/20 09:07 Dose: 20 mg Documented by: Sodium Chloride () 250 mls @ 15 mls/hr IV .[id number] PRN PRN Reason: Saline Flush Sodium Chloride () 250 mls @ 15 mls/hr IV .[id number] PRN PRN Reason: Additional IVPB Infusion Sodium Chloride () 1,000 mls @ 0 mls/hr IV .Q0M PILY Sodium Chloride () 1,000 mls @ 75 mls/hr IV .[id number] [facility] Stop: 09/23/20 12:59 Last Admin: 09/23/20 09:06 Dose: 75 mls/hr Documented by: Insulin Glargine (Insulin Glargine 100 Units/Ml Pen) 34 units SC QPM@2200 [facility] Last Admin: 09/22/20 22:42 Dose: 34 units Documented by: Insulin Human Lispro (Insulin Lispro 100 Unit/Ml Insuln.Pen) 0 unit SC ACHS [facility]; Protocol Last Admin: 09/23/20 11:09 Dose: 2 units Documented by: Losartan Potassium (Losartan Potassium 25 Mg Tablet) 25 mg PO DAILY [facility] Last Admin: 09/23/20 09:15 Dose: 25 mg Documented by: Metoprolol Tartrate (Metoprolol Tartrate 25 Mg Tablet) 12.5 mg PO BID [facility] Last Admin: 09/23/20 09:07 Dose: 12.5 mg Documented by: Nitroglycerin (Nitroglycerin (Inpatient Use) 0.4 Mg Tab.Subl) 0.4 mg SUBLINGUAL Q5M PRN PRN Reason: CARDIAC/CHEST PAIN Ondansetron HCl (Ondansetron 4 Mg/2 Ml Vial) 4 mg IV Q8H PRN PRN PRN Reason: NAUSEA/VOMITING Pantoprazole Sodium (Pantoprazole Sodium 40 Mg Tablet) 40 mg PO DAILY [facility] Last Admin: 09/23/20 09:07 Dose: 40 mg Documented by: Risperidone (Risperidone 1 Mg Tablet) 1 mg PO QHS [facility] Last Admin: 09/22/20 22:36 Dose: 1 mg Documented by: Sodium Chloride (0.9% Saline Lock 10 Ml Syringe) 10 - 40 ml IV UD PRN PRN Reason: SALINE FLUSH Discharge Diet: Low fat/ Low Cholesterol Discharge Activity: Return to Normal Activity Call your doctor if you observe: Shortness of breath, Dizziness, Fainting spells, Chest pain Home Medications: Medications to take at Discharge atorvastatin 80 mg tablet 80 mg PO QHS #90 tab 11/17/19 clopidogrel 75 mg tablet 75 mg PO DAILY #90 tab 11/21/19 pantoprazole 40 mg tablet,delayed release 40 mg PO DAILY #60 tab 01/17/20 Acetaminophen 1,000 mg PO TID PRN #1 tab 03/16/20 metformin 500 mg tablet,extended release 24 hr 1,000 mg PO QPM #180 tab 05/09/20 ipratropium 0.5 mg-albuterol 3 mg (2.5 mg base)/3 mL nebulization soln 3 ml INHALATION Q4H PRN PRN #180 ml 07/11/20 albuterol sulfate 90 mcg/actuation aerosol inhaler 2 puff INHALATION Q6H PRN #18 g 07/12/20 metoprolol tartrate 25 mg tablet 12.5 mg PO BID #90 tab 07/13/20 Citalopram [Celexa] 20 mg PO QHS 07/15/20 losartan 25 mg tablet 25 mg PO DAILY #90 tab 08/08/20 nitroglycerin 0.4 mg sublingual tablet 0.4 mg SUBLINGUAL Q5-15M #25 tab 08/13/20 insulin glargine 100 unit/mL (3 mL) subcutaneous pen 34 unit SC QPM ml 08/20/20 insulin lispro 100 unit/mL subcutaneous pen See Rx Instructions SC TID ml 08/20/20 furosemide 40 mg tablet 20 mg PO DAILY #30 tab 09/03/20 alprazolam 0.5 mg tablet 0.5 mg PO DAILY PRN #30 tab 09/09/20 Risperidone 1 mg PO QHS 09/21/20 Primary Care Physician: Billy Madera MD [Primary Care Provider] - Please follow up with your Primary Care Physician in: 1 Week Please Follow Up With: April Sarmiento, PA When: As scheduled Disposition: Home Minutes spent on discharge:: 35 Patient Condition:: Stable Medical Necessity - Tobacco Use Smoking Status: Former smoker - Quit 10 months ago Meaningful Use Info Meaningful Use Diagnoses (Choose all that apply): None applicable <Geni Mota - Last Filed: 09/23/20 12:07> Discharge Date and Diagnosis - Primary Discharge Diagnosis Acute Problems: Active Problems (Last Updated 09/23/20 @ 11:54 by April Momin) Chest pain (Acute) - Secondary Discharge Diagnosis Chronic Problems: Chronic Problems (Last Updated 09/23/20 @ 11:54 by April Momin) MARK (obstructive sleep apnea) (Chronic) Asthma with COPD (Chronic) FEV1 65% Obesity (Chronic) GERD (gastroesophageal reflux disease) (Chronic) Type 2 diabetes mellitus (Chronic) Generalized anxiety disorder (Chronic) Dermatomyositis (Chronic) Hypertension (Chronic) Atherosclerotic heart disease of [place] coronary artery without angina pectoris (Chronic) Double vessel CAD of the LAD and DIAG#2 Successful PTCA/RACHEL ostial DIAG with a 2.25 x 12 Promus Synergy stent; Successful PTCA/RACHEL mid LAD with a 2.5 x 20 Promus Synergy. Per ANGELO @ [facility] 12/08/2018 Chronic respiratory failure (Chronic) On home oxygen Muscular dystrophy (Chronic) Hyponatremia (Chronic) Hypothyroidism (Chronic) COPD (chronic obstructive pulmonary disease) (Chronic) Depression (Chronic) [place] esophagus (Chronic) Postprandial bloating (Chronic) Hospital Course and Treatment Summary of Care Provided: Hospitalist note: Discharge summary above reviewed and I concur with above discharge and treatment plan. Patient was admitted for chest pain for evaluation. She had history of CAD status post stents. Her EKG revealed no evidence of acute ischemic changes. Her cardiac enzymes were negative. Cardiology was consulted on admission and patient underwent cardiac catheterization that revealed patent coronary stents with [place] multivessel disease and there was no evidence of new lesions or disease that need intervention. ACS ruled out. Cardiology recommended to continue medical treatment. Patient was continued on aspirin, Plavix, statins, losartan and metoprolol. She was discharged home in a stable medical condition, continued on her previous medications without any changes, plan to follow-up with cardiology according to the recommendation, recommended follow-up with PCP in 1 week. - Physical Exam General: Alert, Oriented x3, Cooperative, No apparent distress. HEENT: Atraumatic, PERRLA, EOMI. Neck: Supple, No JVD, Negative Carotid Bruits, Trachea Midline, Thyroid Normal. Lungs: Clear to auscultation, Normal air movement, No rhonchi, No wheeze, No rales. Cardiovascular: Regular rate, Regular Rhythm, Normal S1, Normal S2, PMI Normal. Abdomen: Bowel Sounds Present, Soft, Non Tender, Non-Distended, No Hepato-splenomegaly. Extremities: No clubbing, No cyanosis, No edema Skin: No rashes, No breakdown Neurological: Cranial nerves are intact, neuro grossly intact Vital Signs are stable. This note was generated with [employer] dictation software. It may contain incorrect words, spelling, and punctuation that were not noted in checking the note before signing. - Physical Exam Vitals/I&O's: Vital Signs Temp Pulse Resp BP Pulse Ox 98 F 58 L 14 119/73 99 09/23/20 11:55 09/23/20 11:55 09/23/20 11:55 09/23/20 11:55 09/23/20 11:55 Oxygen Flow Rate (L/min) 4 Oxygen Delivery Method Nasal Cannula Weight: 199 lb Body Mass Index (BMI) 36.3 Finger Stick Blood Glucose 552 Intake and Output for Last 24 Hours 09/21/20 09/22/20 09/23/20 23:59 23:59 23:59 Intake Total 400 / 400 975 / 975 Output Total 100 / 100 Balance 400 / 400 875 / 875 Laboratory Results 09/22/20 16:08: POC Glucose 176 H 09/22/20 22:25: POC Glucose 216 H 09/23/20 05:12: Sodium 140, Potassium 3.7, Chloride 105, Carbon Dioxide 31.0, Anion Gap 4 L, BUN 15, Creatinine 0.73, Estim Creat Clear Calc 41.99, Est GFR (MDRD) Af Amer 102, Est GFR (MDRD) Non-Af 84, BUN/Creatinine Ratio 20.6 H, Glucose 150 H, Calcium 9.0 09/23/20 06:11: POC Glucose 140 H 09/23/20 11:08: POC Glucose 187 H Current Medications Acetaminophen (Acetaminophen 325 Mg Tablet) 650 mg PO Q6H PRN PRN PRN Reason: Pain Score 1-10/Temp > 100.7 F Albuterol Sulfate (Albuterol 2.5 Mg/3 Ml Vial.Neb.) 2.5 mg INHALATION Q2H PRN PRN PRN Reason: SOB/Wheezing Alprazolam (Alprazolam 0.5 Mg Tablet) 0.5 mg PO DAILY PRN PRN Reason: ANXIETY Last Admin: 09/22/20 22:50 Dose: 0.5 mg Documented by: Aspirin (Aspirin E.C. 81 Mg Tablet) 81 mg PO DAILY@0800 [facility] Last Admin: 09/23/20 08:44 Dose: Not Given Documented by: Atorvastatin Calcium (Atorvastatin Calcium 80 Mg Tablet) 80 mg PO QHS [facility] Last Admin: 09/22/20 22:35 Dose: 80 mg Documented by: Citalopram Hydrobromide (Citalopram 20 Mg Tablet) 20 mg PO QHS [facility] Last Admin: 09/22/20 22:35 Dose: 20 mg Documented by: Clopidogrel Bisulfate (Clopidogrel Bisulfate 75 Mg Tablet) 75 mg PO DAILY [facility] Last Admin: 09/23/20 08:43 Dose: Not Given Documented by: Enoxaparin Sodium (Enoxaparin 40 Mg/0.4 Ml Syringe) 40 mg SC DAILY [facility] Last Admin: 09/23/20 09:02 Dose: Not Given Documented by: Furosemide (Furosemide 20 Mg Tablet) 20 mg PO DAILY [facility] Last Admin: 09/23/20 09:07 Dose: 20 mg Documented by: Sodium Chloride () 250 mls @ 15 mls/hr IV .[id number] PRN PRN Reason: Saline Flush Sodium Chloride () 250 mls @ 15 mls/hr IV .[id number] PRN PRN Reason: Additional IVPB Infusion Sodium Chloride () 1,000 mls @ 0 mls/hr IV .Q0M PILY Sodium Chloride () 1,000 mls @ 75 mls/hr IV .[id number] [facility] Stop: 09/23/20 12:59 Last Admin: 09/23/20 09:06 Dose: 75 mls/hr Documented by: Insulin Glargine (Insulin Glargine 100 Units/Ml Pen) 34 units SC QPM@2200 [facility] Last Admin: 09/22/20 22:42 Dose: 34 units Documented by: Insulin Human Lispro (Insulin Lispro 100 Unit/Ml Insuln.Pen) 0 unit SC [facility]; Protocol Last Admin: 09/23/20 11:09 Dose: 2 units Documented by: Losartan Potassium (Losartan Potassium 25 Mg Tablet) 25 mg PO DAILY [facility] Last Admin: 09/23/20 09:15 Dose: 25 mg Documented by: Metoprolol Tartrate (Metoprolol Tartrate 25 Mg Tablet) 12.5 mg PO BID [facility] Last Admin: 09/23/20 09:07 Dose: 12.5 mg Documented by: Nitroglycerin (Nitroglycerin (Inpatient Use) 0.4 Mg Tab.Subl) 0.4 mg SUBLINGUAL Q5M PRN PRN Reason: CARDIAC/CHEST PAIN Ondansetron HCl (Ondansetron 4 Mg/2 Ml Vial) 4 mg IV Q8H PRN PRN PRN Reason: NAUSEA/VOMITING Pantoprazole Sodium (Pantoprazole Sodium 40 Mg Tablet) 40 mg PO DAILY [facility] Last Admin: 09/23/20 09:07 Dose: 40 mg Documented by: Risperidone (Risperidone 1 Mg Tablet) 1 mg PO QHS [facility] Last Admin: 09/22/20 22:36 Dose: 1 mg Documented by: Sodium Chloride (0.9% Saline Lock 10 Ml Syringe) 10 - 40 ml IV UD PRN PRN Reason: SALINE FLUSH Disposition: Home Minutes spent on discharge:: 28 Patient Condition:: Stable Meaningful Use Info Meaningful Use Diagnoses (Choose all that apply): None applicable Inpatient E&M: [id number] [facility]
--- NOTE | 2020-09-23 12:04 | PHA.DC.MR ---
Pharmacy Service has performed discharge medication reconciliation for this patient. The patient's discharge medication list was reviewed for discrepancies and discrepancies were resolved. Home Medications atorvastatin 80 mg tablet 80 mg PO QHS #90 tab 11/17/19 clopidogrel 75 mg tablet 75 mg PO DAILY #90 tab 11/21/19 pantoprazole 40 mg tablet,delayed release 40 mg PO DAILY #60 tab 01/17/20 Acetaminophen 1,000 mg PO TID PRN #1 tab 03/16/20 metformin 500 mg tablet,extended release 24 hr 1,000 mg PO QPM #180 tab 05/09/20 ipratropium 0.5 mg-albuterol 3 mg (2.5 mg base)/3 mL nebulization soln 3 ml INHALATION Q4H PRN PRN #180 ml 07/11/20 albuterol sulfate 90 mcg/actuation aerosol inhaler 2 puff INHALATION Q6H PRN #18 g 07/12/20 metoprolol tartrate 25 mg tablet 12.5 mg PO BID #90 tab 07/13/20 Citalopram [Celexa] 20 mg PO QHS 07/15/20 losartan 25 mg tablet 25 mg PO DAILY #90 tab 08/08/20 nitroglycerin 0.4 mg sublingual tablet 0.4 mg SUBLINGUAL Q5-15M #25 tab 08/13/20 insulin glargine 100 unit/mL (3 mL) subcutaneous pen 34 unit SC QPM ml 08/20/20 insulin lispro 100 unit/mL subcutaneous pen See Rx Instructions SC TID ml 08/20/20 furosemide 40 mg tablet 20 mg PO DAILY #30 tab 09/03/20 alprazolam 0.5 mg tablet 0.5 mg PO DAILY PRN #30 tab 09/09/20 Risperidone 1 mg PO QHS 09/21/20
--- NOTE | 2020-09-23 15:16 | NURSING ---
perfect binder operator came to nurse states patient was very upset is leaving and ripping out her own iv per patient. nurse came to room patient starting to get dressed.She wants to go home. States she has been waiting on drinks. this nurse noted a picture full of water and asked she then stated the perfect binder operator just refilled it. patient states she is leaving she will not stay longer explained to patient that md wanted her to stay until 4pm. she said no she is leaving now. patient states she has her own car here and she will drive herself home. states she loves alone has friend at another apartment that she calls and talks to. expalined risks of driving and being alone after heart cath patient accepted responsibility and said she will be finr reviewed all meds and home cath site instructions to limit use of rt arm risks of bleeding/ect. Dr. Lozano came to room patient states she is leaving now md asked if she has a friend whom can drive her she said no. reexpalined risks of driving and having no onew at home to help
--- NOTE | 2020-09-24 15:15 | CASEMGMT ---
RN CM Discharge F/U Phone Call LACE: 14 Strata: 4 Discharge date: 09/23/20 Call date: 09/24/20 Call time: [id number] Attempted to reach pt without success at this time, message left for pt to call this RN CM back if/when able. SStaten RN CM Admission dx: Chest pain, CAD
== END 2020-09-23 15:12 | disposition home or self-care (01) | DRG 287 ==
LOC: ED 15:22 → PCU 16:43
PROVIDERS: Internal Medicine; Nurse Practitioner Family; Admitting Provider Internal Medicine; Emergency Provider Emergency Medicine; PCP Internal Medicine; Visit Provider Hospitalist
DX: I25.10 Atherosclerotic heart disease of native coronary artery without angina pectoris (principal); J96.11 Chronic respiratory failure with hypoxia; M33.13 Other dermatomyositis without myopathy; E87.1 Hypo-osmolality and hyponatremia; Z95.5 Presence of coronary angioplasty implant and graft; I34.0 Nonrheumatic mitral (valve) insufficiency; J44.9 Chronic obstructive pulmonary disease, unspecified; Z99.81 Dependence on supplemental oxygen; E11.9 Type 2 diabetes mellitus without complications; I10 Essential (primary) hypertension; F41.1 Generalized anxiety disorder; F32.9 Major depressive disorder, single episode, unspecified; G71.00 Muscular dystrophy, unspecified; K21.9 Gastro-esophageal reflux disease without esophagitis; Z79.02 Long term (current) use of antithrombotics/antiplatelets; Z79.4 Long term (current) use of insulin; Z79.899 Other long term (current) drug therapy; E66.01 Morbid (severe) obesity due to excess calories; Z68.37 Body mass index [BMI] 37.0-37.9, adult; K22.70 Barrett's esophagus without dysplasia; G47.33 Obstructive sleep apnea (adult) (pediatric); Z87.891 Personal history of nicotine dependence; E78.5 Hyperlipidemia, unspecified
CPT/HCPCS: 36415; 71045; 80048; 80061; 80076; 82962; 83036; 83880; 84443; 84484; 85025; 93005; 93458; 94640; 99152; 99153; 99285; J7030; C1769; C1894; Q9967

== ENCOUNTER 2020-11-15 12:13 | Emergency (ER) | payer MEDICARE, SELFPAY ==
[2020-09-18 13:21] VITALS: BMI 34.9
[2020-11-15 12:13] VITALS: BP 152/0; PULSE 67; RESP 20; TEMP 36.3; O2SAT 100; BMI 35.6
[2020-11-15 12:19] VITALS: BP 152/90; PULSE 64; RESP 21; TEMP 36.6; O2SAT 100
--- NOTE | 2020-11-15 12:29 | EKG12_ITS ---
Test Reason : CP/SOB Blood Pressure : / mmHG Vent. Rate : 063 BPM Atrial Rate : 063 BPM P-R Int : 156 ms QRS Dur : 080 ms QT Int : 424 ms P-R-T Axes : 057 026 023 degrees QTc Int : 433 ms Normal sinus rhythm Normal ECG Confirmed by BANG MELVIN, ROSALIA ([id number]), editorial director JAVIER COLBY ([id number]) on 11/20/2020 10:43:28 AM Referred By: BB Confirmed By:ROSALIA CUENCA MD
--- NOTE | 2020-11-15 12:31 | ED.DCSUM_ITS ---
History of Present Illness Chief Complaint: Chest Pain Informant: Patient Narrative: Patient presenting for evaluation secondary to shortness of breath and chest pain. Patient has an underlying history of hypertension hyperlipidemia COPD with chronic oxygen dependence and congestive heart failure. Patient states over the course of the last week she has been having increasing issues with shortness of breath. Patient states that now she cannot even walk cross her room without feeling significantly dyspneic, and within the last 24 hours this dyspnea has also been associated with chest pain. Patient states that she has not had any unintended weight gain. She denies any history of DVT or PE, she was recently admitted to the hospital about 2 months ago and had a full cardiac work-up. Patient denies recent infectious signs or symptoms such as fever, she does have a chronic cough productive of yellow sputum that is unchanged. She had an x-ray at urgent care today, and was told that she did not have pneumonia but she needed to come to the emergency department. Review of systems otherwise negative. Past Medical History - Allergies and Home Meds Allergies/Adverse Reactions: Allergies amoxicillin [Amoxicillin] Allergy (Intermediate, Verified 11/15/20 12:20) Rash gabapentin [From Neurontin] Allergy (Verified 11/15/20 12:20) Shortness of breath levofloxacin [From Levaquin] Allergy (Verified 11/15/20 12:20) Hives is allergic to the red dye in the pill form, states she is fine with the iv form. pseudoephedrine HCl [From Sudafed] Allergy (Verified 11/15/20 12:20) Shortness of breath red dye Allergy (Verified 11/15/20 12:20) Hives codeine Adverse Reaction (Verified 11/15/20 12:20) HEADACHE Primary Care Physician: Billy Madera MD [Primary Care Provider] - Prior records reviewed: Yes Past Medical History: - - See HPI Surgical History: angioplasty - With coronary stent x2, cholecystectomy Smoking Status: Former smoker Alcohol: None Drugs: None - Family History Sibling Family History: Family History (Last Reviewed 11/15/20 @ 10:23 by Farideh Rai RN) Brother Heart disease Mother Colon cancer Heart disease Family History: Reports: Heart Disease - Brother of massive OH at age 50 Maternal Family History: Family History (Last Reviewed 11/15/20 @ 10:23 by Farideh Rai RN) Brother Heart disease Mother Colon cancer Heart disease Family History: Reports: Heart Disease, Hypertension Paternal Family History: Family History (Last Reviewed 11/15/20 @ 10:23 by Farideh Rai RN) Brother Heart disease Mother Colon cancer Heart disease Family History: Reports: Hypertension, Pulmonary Disease Review of Systems All systems negative except as indicated General: Denies: Chills, Fever, Sweats Eyes: Denies: Visual changes - bilaterally, Diplopia ENT: Denies: Rhinorrhea, Sore throat Cardiovascular: Reports: Chest pain Respiratory: Reports: Dyspnea, Cough Gastrointestinal: Denies: Abdominal pain, Nausea, Vomiting, Diarrhea, Melena, Hematochezia Genitourinary: Denies: Dysuria, Hematuria, Frequency Musculoskeletal: Denies: Back pain, Extremity Pain Skin: Denies: Rash, Wounds Neurological: Denies: Headache, Weakness, Numbness Physical Exam Vital Signs/Narrative: Vital Signs Temp Pulse Resp BP Pulse Ox 11/15/20 12:19 97.8 F 64 21 H 152/90 H 100 11/15/20 12:13 97.3 F L 67 20 H 152/0 H 100 Inital Vital Signs reviewed: Yes General: Well nourished, Well developed, Obese, No Acute Distress Head: Normocephalic, Atraumatic Eyes: Perrl, EOMI ENT: Moist mucous membranes, No rhinorrhea Neck: Supple, Nontender Cardiovascular: Regular rate, Regular rhythm, No murmurs Respiratory: No distress, CTA bilaterally, Chest nontender. Negative for: Rales, Rhonchi, Wheezing, Diminished Abdomen: Soft, Nontender, Nondistended, Normal bowel sounds Back: Nontender, Normal Inspection Extremities: Nontender, - - Race lower extremity pitting edema is noted Skin: Normal color, No rash Neurological: Alert, Oriented x3, Cranial nerves II-XII grossly intact, Normal Strength, Normal Sensation Psychological: Normal affect, Normal Mood Diagnostic/Tx/Re-eval Chest X-Ray - ED: 2 View, Read by ED Physician, - - No acute cardiopulmonary pathology is noted, some hyperinflation with flattening of the diaphragms Laboratory Data 11/15/20 11/15/20 11/15/20 12:15 12:15 12:15 WBC 9.5 RBC 4.00 L Hgb 10.9 L Hct 35.1 L MCV 87.8 MCH 27.3 MCHC 31.1 L RDW Std Deviation 44.7 H RDW Coeff of Malcom 14.0 Plt Count 306 MPV 10.3 Immature Gran % (Auto) 0.400 Neut % (Auto) 75.9 H Lymph % (Auto) 14.4 L [place] % (Auto) 5.3 Eos % (Auto) 3.2 Baso % (Auto) 0.8 Absolute Neuts (auto) 7.2 Absolute Lymphs (auto) 1.37 Nucleated RBC % 0 D-Dimer Quant (PE/DVT) <= 0.27 Sodium 135 L Potassium 4.0 Chloride 102 Carbon Dioxide 29.0 Anion Gap 4 L BUN 14 Creatinine 0.84 Estim Creat Clear Calc 49.99 Est GFR (MDRD) Af Amer 86 Est GFR (MDRD) Non-Af 71 BUN/Creatinine Ratio 16.6 Glucose 194 H Calcium 9.4 Troponin I < 0.015 B-Natriuretic Peptide 11/15/20 12:15 WBC RBC Hgb Hct MCV MCH MCHC RDW Std Deviation RDW Coeff of Malcom Plt Count MPV Immature Gran % (Auto) Neut % (Auto) Lymph % (Auto) [place] % (Auto) Eos % (Auto) Baso % (Auto) Absolute Neuts (auto) Absolute Lymphs (auto) Nucleated RBC % D-Dimer Quant (PE/DVT) Sodium Potassium Chloride Carbon Dioxide Anion Gap BUN Creatinine Estim Creat Clear Calc Est GFR (MDRD) Af Amer Est GFR (MDRD) Non-Af BUN/Creatinine Ratio Glucose Calcium Troponin I B-Natriuretic Peptide 194.5 H - EKG Initial EKG Interpretation: - - Sinus rhythm at [address] segments, normal T waves, no changes from prior EKG in October of this year no evidence of acute ischemia or arrhythmia - Medical Decision Making Patient presented secondary to exertional shortness of breath. I reviewed her x-ray that was performed at urgent care earlier today and it is negative for acute cardiopulmonary pathology. Patient's EKG was unchanged from prior EKG. CBC was stable, chemistry was stable, troponin was negative, D-dimer was obtained due to the patient complaining of somewhat of a pleuritic component to her chest pain and this was also found to be negative. Patient was able to ambulate on her home level of oxygen in the emergency department without desaturation or significant dyspnea. I believe the patient is stable and appropriate for home treatment. I did discuss the patient with her business owner/engineer, Dr. Lozano, plan is to place the patient on a double her dose of Lasix for 3 days and then have her follow-up. Patient was discharged in stable condition. ED Disposition - Plan for ED Patient: Disposition: [facility] Unit Diagnosis: Congestive heart failure Instructions: ED Heart Failure, Congestive (CHF) Referrals: Ethan Lozano MD [STAFF PHYSICIAN] - 5-7 Days Additional Instructions: Double your dose of Lasix for the next 3 days and follow-up with cardiology.
[2020-11-15 12:37] LABS: Absolute Lymphocyte Count 1.37 X10^3/uL (0.83-4.51); Absolute Neutrophil Count 7.2 X10^3/uL (2.0-7.7); Basophil# 0.08 X10^3/uL; Basophil% 0.8 % (0-1); Eosinophils% 3.2 % (0-5); Hematocrit 35.1 % (37-47); Hemoglobin 10.9 g/dL (12.0-15.0); Lymphocyte # 1.37 X10^3/ul (4.0); Lymphocyte % 14.4 % (19-41); Mean Corp Hgb Conc 31.1 g/dL (32-36); Mean Corpuscular Hgb 27.3 pg (27.0-32.0); Mean Corpuscular Volume 87.8 fL (81-99); Mean Platelet Vol. 10.3 fl (6.2-12.0); Monocyte% 5.3 % (0-10); NRBC Flagged by Analyzer 0 % (0-5); Neutrophil # 7.22 X10^3/uL (2.7-7.7); Neutrophil % 75.9 % (47-70); Platelet Count 306 K/mm3 (150-450); RBC Distribution Width SD 44.7 fl (35.1-43.9); White Blood Count 9.5 K/mm3 (4.4-11.0)
[2020-11-15] MEDS: Aspirin 81 MG TAB.CHEW 324 MG PO (12:44)
[2020-11-15 12:45] VITALS: O2SAT 99
[2020-11-15 12:56] LABS: Anion Gap 4 (5-15); BUN 14 mg/dL (7-18); BUN/Creat Ratio 16.6 RATIO (10-20); Calcium,Total 9.4 mg/dL (8.5-10.1); Chloride 102 mmol/L (98-107); Creatinine, Serum 0.84 mg/dL (0.55-1.02); EST Glomerular Filtration Rate 71 mL/min (>60); Est Glom Filt Rate - Afr Amer 86 mL/min (>60); Estimated Creatinine Clearance 49.99 ml/min; Glucose 194 mg/dL (74-106); Sodium Level 135 mmol/L (136-145)
[2020-11-15 12:58] LABS: D-Dimer Quantitative (DVT/PE) <= 0.27 FEU/ug/m (0.27-0.49)
[2020-11-15 13:07] LABS: BNP,B-Type NATRIURETIC PEPTIDE 194.5 pg/mL (0-100)
[2020-11-15 13:18] VITALS: O2SAT 100
[2020-11-15 13:23] VITALS: BP 145/65; PULSE 54; RESP 16; TEMP 36.6; O2SAT 100
[2020-11-15 13:38] VITALS: BP 141/44; PULSE 55; RESP 17; O2SAT 99
== END 2020-11-15 14:00 ==
PROVIDERS: Emergency Provider Emergency Medicine; PCP Internal Medicine
DX: I11.0 Hypertensive heart disease with heart failure (principal); I50.9 Heart failure, unspecified; E78.5 Hyperlipidemia, unspecified; J44.9 Chronic obstructive pulmonary disease, unspecified; Z99.81 Dependence on supplemental oxygen; Z87.891 Personal history of nicotine dependence; E66.9 Obesity, unspecified
CPT/HCPCS: 80048; 83880; 84484; 85025; 85379; 93005; 99285; A4216

== ENCOUNTER → 2021-01-15 13:17 | Outpatient (CLI) | payer MEDICARE, SELFPAY ==
[2020-09-18 13:21] VITALS: BMI 34.9
[2020-12-30 08:54] VITALS: BMI 38.2
--- NOTE | 2021-01-15 13:21 | CT_ITS ---
STUDY: LOW DOSE CT LUNG CANCER SCREENING REASON FOR EXAM: Female, 70 years old. Smoker and gt; 40 pack years, quit 2019 RADIATION DOSAGE (If Supplied By Facility): CTDIvol = ( 2.39 ) mGy, DLP = ( 73.25 ) mGycm TECHNIQUE: No contrast was administered. Low dose technique was utilized (average mAS-38 and kVp 120). 1.25 mm axial source images with a slice interval of 1.25-mm were reconstructed in lung windows. 2.5 mm axial source images with a slice interval of 2.5-mm were reconstructed in lung windows. 5.0 mm axial source images with a slice interval of 5.0-mm were reconstructed in soft tissue windows. Nodule measured using lung windows on PACS and/or independent workstation with automated measurement of minimum and maximum diameter. Nodule measurement reported as average diameter rounded to the nearest whole number. Growth is defined as an increase ins size of greater than 1.5 mm. COMPARISON: Comparison is made with prior examination dated 01/31/2020. NODULES: Stable punctate granuloma in the medial aspect of the right upper lobe. A calcified granuloma is also seen in the inferior medial aspect of the right upper lobe. Emphysema: Hyperinflation. Stable focal area of scarring in the anterior lateral aspect of the lingular segment of the left upper lobe as well as in the left lower lobe. Segment of the left upper lobe. Endobronchial lesion: None Aorta: Calcified plaques. Coronary arteries: Calcified coronary arteries. Heart: Unremarkable Pulmonary artery: Unremarkable Mediastinal nodes: Unremarkable Other chest and abdominal findings: CT/Low Dose CT Lung Screening IMPRESSION: Lung-RADS category 2 - Continue annual screening with LDCT in 12 months. IMPORTANT NOTES FOR USE: ACR Lung-RADS Version 1.1 Assessment Categories Release Date: 2018 Category: Coded 0-4 bases on nodule(s) with highest degree of suspicion. Negative screen is defined as categories 1 and 2; a positive screen is defined as categories 3 and 4. Category 3 and 4A nodules that are unchanged on interval CT should be coded as category 2, and individuals returned to screening in 12 months. Category 4X: Category 3 or 4 nodules with additional imaging findings that increase the suspicion of lung cancer, such as spiculation, GGN that doubles in size in 1 year, enlarged lymph notes, etc. Category Modifiers: S (significant finding unrelated to lung cancer) Electronically Signed: Bruce Lubin MD at 15:18 EDT , Service support ,
== END ==
PROVIDERS: PCP Internal Medicine; Referring Provider Nurse Practitioner Acute Care; Visit Provider Nurse Practitioner Acute Care
DX: F17.210 Nicotine dependence, cigarettes, uncomplicated (principal); Z12.2 Encounter for screening for malignant neoplasm of respiratory organs
CPT/HCPCS: 71271

== ENCOUNTER → 2021-03-10 08:53 | Outpatient (CLI) | payer MEDICARE, SELFPAY ==
[2021-03-07 16:44] VITALS: BMI 34.9
[2021-03-10 08:34] VITALS: BMI 38.2
[2021-03-10 12:37] LABS: Anion Gap 6 (5-15); BUN 12 mg/dL (7-18); BUN/Creat Ratio 12.7 RATIO (10-20); Calcium,Total 8.8 mg/dL (8.5-10.1); Chloride 103 mmol/L (98-107); Creatinine, Serum 0.94 mg/dL (0.55-1.02); EST Glomerular Filtration Rate 62 mL/min (>60); Est Glom Filt Rate - Afr Amer 75 mL/min (>60); Glucose 211 mg/dL (74-106); Potassium 4.3 mmol/L (3.5-5.1); Sodium Level 137 mmol/L (136-145)
== END ==
PROVIDERS: PCP Internal Medicine; Visit Provider Internal Medicine
DX: I10 Essential (primary) hypertension (principal)
CPT/HCPCS: 36415; 80048

== ENCOUNTER 2021-04-06 16:09 | Emergency (ER) | payer MEDICARE, SELFPAY ==
[2021-03-07 16:44] VITALS: BMI 34.9
[2021-04-06 16:10] VITALS: BP 195/81; PULSE 78; RESP 20; TEMP 36.4; O2SAT 100; BMI 36.6
[2021-04-06 16:23] VITALS: O2SAT 100
--- NOTE | 2021-04-06 16:24 | EKG12_ITS ---
Test Reason : SOB Blood Pressure : / mmHG Vent. Rate : 071 BPM Atrial Rate : 071 BPM P-R Int : 154 ms QRS Dur : 080 ms QT Int : 402 ms P-R-T Axes : 060 014 066 degrees QTc Int : 436 ms Normal sinus rhythm Normal ECG Confirmed by BANG MELVIN, ROSALIA ([id number]), television news video editor JAVIER COLBY ([id number]) on 04/08/2021 8:38:00 AM Referred By: ELENA Confirmed By:ROSALIA CUENCA MD
--- NOTE | 2021-04-06 16:25 | EX.ED.DYSGE1 ---
HPI History of Present Illness Chief Complaint: Shortness of Breath Narrative Narrative: 70-year-old female with history of COPD presenting with shortness of breath. She states this is worse for about a week. She complains about cough as well. Patient denies any fever, chills, body aches, change in taste or smell. Patient has been vaccinated for COVID-19. She states she had one sick contact that came to help her at her house who had been ill and had diarrhea however this is her only sick contact. Patient herself admits to some nausea, vomiting, diarrhea but states she is also able to eat and drink at home without much difficulty. She denies chest pain. Patient wears 4 L of oxygen at baseline and this has not changed. Patient states she did do a breathing treatment before she left her house and currently feels okay. [facility] Medical History Atherosclerotic heart disease of [place] coronary artery without angina pectoris Back pain CHF (congestive heart failure) COPD (chronic obstructive pulmonary disease) Depression Health care maintenance Heart disease History of constipation HLD (hyperlipidemia) Hypertension Lung disease Psoriasis SOB (shortness of breath) Home Medications acetaminophen 1,000 mg PO TID PRN #1 tab 03/16/20 [Rx Last Taken 07/15/20 15:00] metformin 500 mg tablet,extended release 24 hr 1,000 mg PO QPM #180 tab 05/09/20 [Rx Last Taken 07/14/20 21:00] ipratropium 0.5 mg-albuterol 3 mg (2.5 mg base)/3 mL nebulization soln 3 ml INHALATION Q4H PRN PRN #180 ml 07/11/20 [Rx Last Taken 07/15/20 18:00] metoprolol tartrate 25 mg tablet 12.5 mg PO BID #90 tab 07/13/20 [Rx Last Taken 07/14/20 21:00] losartan 25 mg tablet 25 mg PO DAILY #90 tab 08/08/20 [Rx Last Taken Unknown] nitroglycerin 0.4 mg sublingual tablet 0.4 mg SUBLINGUAL Q5-15M #25 tab 08/13/20 [Rx Last Taken Unknown] risperidone 1 mg PO QHS 09/21/20 [History Last Taken Unknown] docusate sodium 100 mg capsule 100 mg PO BID PRN #60 cap 09/26/20 [Rx Last Taken Unknown] clopidogrel 75 mg tablet 75 mg PO DAILY #90 tab 10/08/20 [Rx Last Taken Unknown] blood sugar diagnostic #100 each 11/05/20 [Rx Last Taken Unknown] pen needle, diabetic 32 gauge x #50 ea 12/06/20 [History Last Taken Unknown] atorvastatin 80 mg tablet 80 mg PO QHS #90 tab 12/09/20 [Rx Last Taken Unknown] Handicap Placard #1 ea 12/12/20 [Rx Last Taken Unknown] aspirin 81 mg tablet,delayed release 81 mg PO DAILY 12/27/20 [History Last Taken Unknown] citalopram 40 mg tablet 40 mg PO QHS tab 12/27/20 [History Last Taken Unknown] fluticasone propionate 50 mcg/actuation nasal spray,suspension 1 spray INTRANASAL DAILY PRN 12/27/20 [History Last Taken Unknown] loratadine 10 mg tablet 10 mg PO DAILY #90 tab 12/30/20 [Rx Last Taken Unknown] pantoprazole 40 mg tablet,delayed release 40 mg PO DAILY #90 tab 01/07/21 [Rx Last Taken Unknown] insulin lispro 100 unit/mL subcutaneous pen 15 unit SC TID #54 ml 01/23/21 [Rx Last Taken Unknown] flash glucose scanning reader #1 ea 01/31/21 [Rx Last Taken Unknown] flash glucose sensor #2 ea 01/31/21 [Rx Last Taken Unknown] albuterol sulfate 90 mcg/actuation aerosol inhaler 2 puff INHALATION Q6H PRN #18 g 02/06/21 [Rx Last Taken Unknown] alprazolam 0.25 mg tablet 0.25 mg PO DAILY PRN #30 tab 03/07/21 [Rx Last Taken Unknown] calcipotriene 0.005 % topical cream 1 applic TOPICAL DAILY #120 g 03/07/21 [Rx Last Taken Unknown] clobetasol 0.05 % topical cream 1 applic TOPICAL BID 14 Days #60 g 03/10/21 [Rx Last Taken Unknown] insulin glargine 100 unit/mL (3 mL) subcutaneous pen 36 unit SUBCUT DAILY 90 Days #32.4 ml 03/10/21 [Rx Last Taken Unknown] Allergy/AdvReac Type Severity Reaction Status Date / Time amoxicillin [Amoxicillin] Allergy Intermediate Rash Verified 04/06/21 16:13 gabapentin [From Neurontin] Allergy Shortness Verified 04/06/21 16:13 of breath levofloxacin [From Levaquin] Allergy Hives Verified 04/06/21 16:13 pseudoephedrine HCl Allergy Shortness Verified 04/06/21 16:13 [From Sudafed] of breath red dye Allergy Hives Verified 04/06/21 16:13 codeine AdvReac HEADACHE Verified 04/06/21 16:13 Family History Brother Heart disease Mother Colon cancer Heart disease Surgical History History of cholecystectomy History of left heart catheterization (LHC) (~09/23/20) Stented coronary artery (12/28/18) Social History Smoking Status: Former smoker pack-years: 40 how long ago did patient quit smokin year ago alcohol intake: never substance use type: does not use caffeine: Yes Type: carbonated beverages and tea what type of physical activity do you participate in: none ROS ROS ED Constitutional Constitutional ED: Denies chills or fever(s) Eyes Eyes: Denies blurry vision or diplopia ENT ENT ED: Denies rhinorrhea or sore throat Cardiovascular Cardiovascular: Denies chest pain or palpitations Respiratory/Chest Respiratory/Chest: Reports cough and dyspnea Gastrointestinal Gastrointestinal: Reports diarrhea, nausea and vomiting; Denies abdominal pain, constipation or melena Genitourinary Genitourinary ED: Denies dysuria or hematuria Musculoskeletal Musculoskeletal: Denies arthralgias, back pain, myalgias or neck pain Integumentary Denies Abrasions or rash Neurologic Neurologic: Denies headache(s) or paresthesias EXAM Physical Exam Const Vital Signs: 04/06/21 16:10 04/06/21 16:23 04/06/21 16:24 Temperature 97.6 F L Temperature Source Oral Pulse Rate 78 Respiratory Rate 20 H Respiratory Effort Short of Breath Blood Pressure 195/81 H Blood Pressure Mean 119 Pulse Ox 100 Oxygen Delivery Method Nasal Cannula Nasal Cannula Nasal Cannula Oxygen Flow Rate (L/min) 4 4 4 04/06/21 18:31 Temperature Temperature Source Pulse Rate 78 Respiratory Rate 18 Respiratory Effort Blood Pressure 125/97 H Blood Pressure Mean 106 Pulse Ox Oxygen Delivery Method Oxygen Flow Rate (L/min) Positive well nourished General Appearance ED: Negative for pallor HEENT Reports moist mucous membranes Negative for trauma Eyes PERRL and EOMs intact bilaterally General Eye ED: Negative for pale conjunctiva or scleral icterus Resp normal respiratory effort and clear to auscultation bilaterally Cardio regular rate and regular rhythm GI normal to inspection, nondistended, normoactive bowel sounds Neuro oriented x3, CN's II-XII intact bilaterally and no sensory deficits noted Sensorium / Orientation: alert Motor Exam: strength 5/5 throughout Psych mental status grossly normal Skin no rashes or lesions noted and no wounds General Skin Exam: Negative for jaundice or pallor MDM MDM MDM Narrative Medical decision making narrative: Patient presented for shortness of breath but does not sound to be a chronic issue. This has been going on for several days. Patient's blood work-up is ultimately normal. Troponin is negative. Covid testing is also negative. EKG shows a sinus rhythm at 71 bpm without sign of ischemic changes. Chest x-ray on my interpretation shows no process. Given patient's negative work-up I feel she is safe to be discharged home. She is amenable to this. Again she is on her baseline oxygen and has not required any intervention. Impression: 1. Dyspnea Lab Data Attestation: I reviewed the patient's lab results. Labs: Laboratory Results - last 24 hr 04/06/21 04/06/21 04/06/21 16:53 17:00 17:00 WBC 9.6 RBC 4.21 Hgb 11.3 L Hct 35.6 L MCV 84.6 MCH 26.8 L MCHC 31.7 L RDW Std Deviation 42.2 RDW Coeff of Malcom 13.7 Plt Count 291 MPV 10.9 Immature Gran % (Auto) 0.600 Neut % (Auto) 76.9 H Lymph % (Auto) 12.8 L [place] % (Auto) 6.1 Eos % (Auto) 2.7 Baso % (Auto) 0.9 Absolute Neuts (auto) 7.4 Absolute Lymphs (auto) 1.23 Nucleated RBC % 0 Sodium 135 L Potassium 3.9 Chloride 98 Carbon Dioxide 31.0 Anion Gap 6 BUN 10 Creatinine 0.74 Estim Creat Clear Calc 41.99 Est GFR (MDRD) Af Amer 101 Est GFR (MDRD) Non-Af 83 BUN/Creatinine Ratio 13.6 Glucose 213 H Calcium 9.8 Troponin I High Sens 7 B-Natriuretic Peptide Urine Color Urine Clarity Urine pH Ur Specific [place] Urine Protein Urine Glucose (UA) Urine Ketones Urine Occult Blood Urine Nitrite Urine Bilirubin Urine Urobilinogen Ur Leukocyte Esterase Urine RBC Urine WBC Ur Squamous Epith Cells Urine Bacteria Urine Mucus COVID-19 (GENTRY) Negative 04/06/21 04/06/21 17:00 17:30 WBC RBC Hgb Hct MCV MCH MCHC RDW Std Deviation RDW Coeff of Malcom Plt Count MPV Immature Gran % (Auto) Neut % (Auto) Lymph % (Auto) [place] % (Auto) Eos % (Auto) Baso % (Auto) Absolute Neuts (auto) Absolute Lymphs (auto) Nucleated RBC % Sodium Potassium Chloride Carbon Dioxide Anion Gap BUN Creatinine Estim Creat Clear Calc Est GFR (MDRD) Af Amer Est GFR (MDRD) Non-Af BUN/Creatinine Ratio Glucose Calcium Troponin I High Sens B-Natriuretic Peptide 91.7 Urine Color SEE COMMENT BELOW Urine Clarity Sl. Cloudy Urine pH 6.5 Ur Specific [place] 1.010 Urine Protein Negative Urine Glucose (UA) Normal Urine Ketones Negative Urine Occult Blood Negative Urine Nitrite Negative Urine Bilirubin Negative Urine Urobilinogen Normal Ur Leukocyte Esterase Negative Urine RBC 0 SEEN Urine WBC 0-5 SEEN Ur Squamous Epith Cells 0-5 SEEN Urine Bacteria RARE Urine Mucus 0 SEEN COVID-19 (GENTRY) Radiography Diagnostic Testing: Radiology Impression Chest X-Ray 04/06/21 17:10 IMPRESSION: No airspace consolidation. Pleural and parenchymal fibrotic changes in the left lung base overall stable. Electronically Signed: Yaakov English MD ([place]oks) at 17:39 EDT , Service support , Discharge Plan Triage Chief Complaint: Shortness of Breath ED Provider: Jose Gonzalez Dx/Rx/DC Orders Instructions: ED Dyspnea Prescriptions: No Action docusate sodium [Colace] 100 mg capsule 100 mg PO BID PRN (Reason: constipation) Qty: 60 RF: 3 nitroglycerin 0.4 mg tablet, sublingual 0.4 mg SUBLINGUAL Q5-15M Qty: 25 RF: 3 (DME) pen needle, diabetic 32 gauge x 5/32 needle See Rx Instructions ea .ROUTE .MEDSUPPLY Qty: 50 RF: 0 (DME) Handicap Placard See Rx Instructions .ROUTE .MEDSUPPLY Qty: 1 RF: 0 aspirin [Adult Low Dose Aspirin] 81 mg tablet,delayed release (DR/EC) 81 mg PO DAILY RF: 0 citalopram 40 mg tablet 40 mg PO QHS RF: 0 fluticasone propionate [Flonase Allergy Relief] 50 mcg/actuation spray,suspension 1 spray intranasal DAILY PRNRF: 0 loratadine 10 mg tablet 10 mg PO DAILY Qty: 90 RF: 3 Basaglar KwikPen U-100 Insulin 100 unit/mL (3 mL) insulin pen 36 unit subcut DAILY 90 Days Qty: 32.4 RF: 3 clobetasol 0.05 % cream 1 applic topical BID 14 Days Qty: 60 RF: 2 acetaminophen 500 MG tablet 1,000 mg PO TID PRN (Reason: Pain Or Fever) Qty: 1 RF: 0 risperidone 1 MG tablet 1 mg PO QHS RF: 0 metformin 500 mg tablet extended release 24 hr 1,000 mg PO QPM Qty: 180 RF: 3 ipratropium-albuterol 0.5 mg-3 mg(2.5 mg base)/3 mL solution for nebulization 3 ml INHALATION Q4H PRN PRN (Reason: SOB &/OR WHEEZING) Qty: 180 RF: 6 metoprolol tartrate 25 mg tablet 12.5 mg PO BID Qty: 90 RF: 3 losartan 25 mg tablet 25 mg PO DAILY Qty: 90 RF: 3 clopidogrel 75 mg tablet 75 mg PO DAILY Qty: 90 RF: 3 (DME) Accu-Chek Aundrea Plus test strp Strip See Rx Instructions .ROUTE .MEDSUPPLY Qty: 100 RF: 8 atorvastatin 80 mg tablet 80 mg PO QHS Qty: 90 RF: 3 pantoprazole 40 mg tablet,delayed release (DR/EC) 40 mg PO DAILY Qty: 90 RF: 1 insulin lispro [Humalog KwikPen Insulin] 100 unit/mL insulin pen 15 unit SC TID Qty: 54 RF: 3 (DME) FreeStyle Emily 2 [place] Misc See Rx Instructions .ROUTE .MEDSUPPLY Qty: 1 RF: 0 (DME) FreeStyle Emily 2 Sensor Kit See Rx Instructions .ROUTE .MEDSUPPLY Qty: 2 RF: 12 albuterol sulfate 90 mcg/actuation HFA aerosol inhaler 2 puff INHALATION Q6H PRN (Reason: shortness of breath or wheezing) Qty: 18 RF: 3 alprazolam 0.25 mg tablet 0.25 mg PO DAILY PRN (Reason: Anxiety) Qty: 30 RF: 0 calcipotriene 0.005 % cream 1 applic topical DAILY Qty: 120 RF: 0 Primary Care Provider: Billy Madera Referrals: Billy Madera MD [Primary Care Provider] - Disposition Disposition: Home, Self Care Discharge Date/Time: 04/06/21 18:52
--- NOTE | 2021-04-06 17:10 | RAD_ITS ---
STUDY: X-RAY CHEST REASON FOR EXAM: Female, 70 years old. chest pain TECHNIQUE: AP COMPARISON: 11/15/2020, report of chest CT 01/15/2021 FINDINGS: EKG leads project over the chest. Stable parenchymal fibrotic scarring in the left lung base Left pleural thickening of the costophrenic angle has increased. Normal size heart. Normal mediastinum and wallace. Normal visualized pulmonary arteries. Normal visualized aortic arch and descending thoracic aorta. Normal visualized thoracic spine. Normal visualized ribs, clavicles, and shoulders. There is no demonstrated abnormality of the visualized soft tissue structures of the upper abdomen. RAD/Chest 1 View (Portable) IMPRESSION: No airspace consolidation. Pleural and parenchymal fibrotic changes in the left lung base overall stable. Electronically Signed: Yaakov English MD ([place]) at 17:39 EDT , Service support ,
[2021-04-06 17:23] LABS: Absolute Lymphocyte Count 1.23 X10^3/uL (0.83-4.51); Absolute Neutrophil Count 7.4 X10^3/uL (2.0-7.7); Basophil# 0.09 X10^3/uL; Basophil% 0.9 % (0-1); Eosinophil# 0.26 X10^3/uL; Eosinophils% 2.7 % (0-5); Hematocrit 35.6 % (37-47); Hemoglobin 11.3 g/dL (12.0-15.0); Lymphocyte # 1.23 X10^3/ul (0.83-4.51); Lymphocyte % 12.8 % (19-41); Mean Corp Hgb Conc 31.7 g/dL (32-36); Mean Corpuscular Hgb 26.8 pg (27.0-32.0); Mean Corpuscular Volume 84.6 fL (81-99); Mean Platelet Vol. 10.9 fl (6.2-12.0); Monocyte# 0.59 X10^3/uL; Monocyte% 6.1 % (0-10); NRBC Flagged by Analyzer 0 % (0-5); Neutrophil # 7.41 X10^3/uL (2.7-7.7); Neutrophil % 76.9 % (47-70); Platelet Count 291 K/mm3 (150-450); RBC Distribution Width CV 13.7 % (11.6-14.6); RBC Distribution Width SD 42.2 fl (35.1-43.9); Red Blood Count 4.21 M/mm3 (4.2-5.4); White Blood Count 9.6 K/mm3 (4.4-11.0)
[2021-04-06 17:35] LABS: Anion Gap 6 (5-15); BUN 10 mg/dL (7-18); BUN/Creat Ratio 13.6 RATIO (10-20); Calcium,Total 9.8 mg/dL (8.5-10.1); Chloride 98 mmol/L (98-107); Creatinine, Serum 0.74 mg/dL (0.55-1.02); EST Glomerular Filtration Rate 83 mL/min (>60); Est Glom Filt Rate - Afr Amer 101 mL/min (>60); Estimated Creatinine Clearance 41.99 ml/min; Glucose 213 mg/dL (74-106); Potassium 3.9 mmol/L (3.5-5.1); Sodium Level 135 mmol/L (136-145); Troponin-I HS 7 pg/mL (3.0-54.0)
[2021-04-06 17:44] LABS: Mucous, Urine 0 SEEN /hpf (<or=2+); Red Blood Cells-Urine 0 SEEN /hpf (0-5)
[2021-04-06 17:49] LABS: BNP,B-Type NATRIURETIC PEPTIDE 91.7 pg/mL (0-100)
[2021-04-06 17:54] LABS: Glucose, Dipstick Normal (Normal); Ketone-Dipstick Negative (Negative); Leukocyte Esterase-Dipstick Negative /ul (Negative); Nitrite-Dipstick Negative (Negative); Occult Blood-Urine Negative /ul (Negative); Protein-Dipstick Negative (Negative); Urine Bilirubin Dipstick Negative (Negative); Urine Clarity Sl. Cloudy (Clear); Urine Urobilinogen Normal (Normal); Urine pH 6.5 (5.0 - 8.0)
[2021-04-06 17:56] LABS: Color, Urine SEE COMMENT BELOW (Yellow)
[2021-04-06 18:20] LABS: Squamous Epithelial Cells - UA 0-5 SEEN /hpf (5-10)
[2021-04-06 18:22] LABS: Bacteria RARE /hpf (None Seen); White Blood Cells 0-5 SEEN /hpf (0-5)
[2021-04-06 18:31] VITALS: BP 125/97; PULSE 78; RESP 18
[2021-04-06 19:03] LABS: Probe Check PASS; Specimen Processing Control PASS
== END 2021-04-06 18:52 | disposition home or self-care (01) ==
PROVIDERS: Emergency Provider Student in an Organized Health Care Education/Training Program; PCP Internal Medicine
DX: R06.00 Dyspnea, unspecified (principal); J44.9 Chronic obstructive pulmonary disease, unspecified; I25.10 Atherosclerotic heart disease of native coronary artery without angina pectoris; I11.0 Hypertensive heart disease with heart failure; I50.9 Heart failure, unspecified; F32.9 Major depressive disorder, single episode, unspecified; E78.5 Hyperlipidemia, unspecified; Z99.81 Dependence on supplemental oxygen; Z79.899 Other long term (current) drug therapy; Z87.891 Personal history of nicotine dependence
CPT/HCPCS: 71045; 80048; 81001; 83880; 84484; 85025; 87635; 93005; 99284; U0005; A4216; U0003

== ENCOUNTER 2021-05-08 20:40 | Observation (INO) | payer MEDICARE, SELFPAY ==
[2021-03-07 16:44] VITALS: BMI 34.9
[2021-05-08 20:43] VITALS: BP 166/73; PULSE 87; RESP 30; TEMP 36.5; O2SAT 96; BMI 40.6
[2021-05-08 20:48] VITALS: O2SAT 96
--- NOTE | 2021-05-08 21:15 | EKG12_ITS ---
Test Reason : SOB Blood Pressure : / mmHG Vent. Rate : 075 BPM Atrial Rate : 075 BPM P-R Int : 150 ms QRS Dur : 082 ms QT Int : 410 ms P-R-T Axes : 021 030 047 degrees QTc Int : 457 ms Normal sinus rhythm Normal ECG Confirmed by BANG MELVIN, ROSALIA ([id number]), publications editor JAVIER COLBY ([id number]) on 05/12/2021 8:03:34 AM Referred By: NATI Confirmed By:ROSALIA CUENCA MD
--- NOTE | 2021-05-08 21:15 | RAD_ITS ---
STUDY: X-RAY CHEST REASON FOR EXAM: Female, 70 years old. copd TECHNIQUE: Portable, upright, AP chest radiograph COMPARISON: 04/06/2021 FINDINGS: Right lung base hazy, confluent opacification. Left infrahilar tubular opacity. Chronic pleural thickening at the left lateral costophrenic angle. Normal size heart. Normal mediastinum and wallace. Normal visualized pulmonary arteries. There is atherosclerotic calcification of the aortic arch with tortuosity. Normal visualized thoracic spine. There is degenerative osteoarthritis of the bilateral shoulders. There is no demonstrated abnormality of the visualized soft tissue structures of the upper abdomen. RAD/Chest 1 View (Portable) IMPRESSION: Right lung base consolidation. Electronically Signed: Ethan Thurman MD at 22:24 EDT Tel , Service support ,
--- NOTE | 2021-05-08 21:16 | EDS_ITS ---
HPI History of Present Illness Chief Complaint: Shortness of Breath Informant: patient and EMS Narrative Narrative: 70-year-old female presenting from home with shortness of breath. The patient reportedly has a history of COPD chronically wears 4 L of home oxygen. She saw her organic extractions technician Dr. Nuno last week. She notes that she was doing well until couple days ago when she began to have increasing shortness of breath with exertion. She turned her oxygen up to 5 L. Tonight she states that she was suddenly more short of breath and could not breathe. She states that she did not have any change in her sputum production or fevers. She tried at home breathing treatment with no relief and called EMS. She states now she is doing much better. She does not feel that she can take a full breath. [facility] Medical History Atherosclerotic heart disease of [place] coronary artery without angina pectoris Back pain CHF (congestive heart failure) COPD (chronic obstructive pulmonary disease) Depression Health care maintenance Heart disease History of constipation HLD (hyperlipidemia) Hypertension Lung disease Psoriasis SOB (shortness of breath) Home Medications acetaminophen 1,000 mg PO TID PRN #1 tab 03/16/20 [Rx Last Taken 07/15/20 15:00] metformin 500 mg tablet,extended release 24 hr 1,000 mg PO QPM #180 tab 05/09/20 [Rx Last Taken 07/14/20 21:00] ipratropium 0.5 mg-albuterol 3 mg (2.5 mg base)/3 mL nebulization soln 3 ml INHALATION Q4H PRN PRN #180 ml 07/11/20 [Rx Last Taken 07/15/20 18:00] losartan 25 mg tablet 25 mg PO DAILY #90 tab 08/08/20 [Rx Last Taken Unknown] nitroglycerin 0.4 mg sublingual tablet 0.4 mg SUBLINGUAL Q5-15M #25 tab 08/13/20 [Rx Last Taken Unknown] docusate sodium 100 mg capsule 100 mg PO BID PRN #60 cap 09/26/20 [Rx Last Taken Unknown] clopidogrel 75 mg tablet 75 mg PO DAILY #90 tab 10/08/20 [Rx Last Taken Unknown] blood sugar diagnostic #100 each 11/05/20 [Rx Last Taken Unknown] pen needle, diabetic 32 gauge x #50 ea 12/06/20 [History Last Taken Unknown] atorvastatin 80 mg tablet 80 mg PO QHS #90 tab 12/09/20 [Rx Last Taken Unknown] Handicap Placard #1 ea 12/12/20 [Rx Last Taken Unknown] aspirin 81 mg tablet,delayed release 81 mg PO DAILY 12/27/20 [History Last Taken Unknown] citalopram 40 mg tablet 40 mg PO QHS tab 12/27/20 [History Last Taken Unknown] loratadine 10 mg tablet 10 mg PO DAILY #90 tab 12/30/20 [Rx Last Taken Unknown] pantoprazole 40 mg tablet,delayed release 40 mg PO DAILY #90 tab 01/07/21 [Rx Last Taken Unknown] insulin lispro 100 unit/mL subcutaneous pen 15 unit SC TID #54 ml 01/23/21 [Rx Last Taken Unknown] flash glucose scanning reader #1 ea 01/31/21 [Rx Last Taken Unknown] flash glucose sensor #2 ea 01/31/21 [Rx Last Taken Unknown] albuterol sulfate 90 mcg/actuation aerosol inhaler 2 puff INHALATION Q6H PRN #18 g 02/06/21 [Rx Last Taken Unknown] calcipotriene 0.005 % topical cream 1 applic TOPICAL DAILY #120 g 03/07/21 [Rx Last Taken Unknown] clobetasol 0.05 % topical cream 1 applic TOPICAL BID 14 Days #60 g 03/10/21 [Rx Last Taken Unknown] insulin glargine 100 unit/mL (3 mL) subcutaneous pen 36 unit SUBCUT DAILY 90 Days #32.4 ml 03/10/21 [Rx Last Taken Unknown] alprazolam 0.25 mg tablet 0.25 mg PO DAILY PRN #30 tab 04/09/21 [Rx Last Taken Unknown] risperidone 1 mg tablet 1 mg PO QHS #30 tab 04/09/21 [Rx Last Taken Unknown] metoprolol tartrate 25 mg tablet 12.5 mg PO BID #90 tab 04/25/21 [Rx Last Taken Unknown] fluticasone propionate 50 mcg/actuation nasal spray,suspension 1 spray INTRANASAL DAILY #16 g 04/29/21 [Rx Last Taken Unknown] Allergy/AdvReac Type Severity Reaction Status Date / Time amoxicillin [Amoxicillin] Allergy Intermediate Rash Verified 05/08/21 20:41 gabapentin [From Neurontin] Allergy Shortness Verified 05/08/21 20:41 of breath levofloxacin [From Levaquin] Allergy Hives Verified 05/08/21 20:41 pseudoephedrine HCl Allergy Shortness Verified 05/08/21 20:41 [From Sudafed] of breath red dye Allergy Hives Verified 05/08/21 20:41 codeine AdvReac HEADACHE Verified 05/08/21 20:41 Family History Brother Heart disease Mother Colon cancer Heart disease Surgical History History of cholecystectomy History of left heart catheterization (LHC) (~09/23/20) Stented coronary artery (12/28/18) Social History Smoking Status: Former smoker pack-years: 40 how long ago did patient quit smokin year ago alcohol intake: never substance use type: does not use caffeine: Yes Type: carbonated beverages and tea what type of physical activity do you participate in: none ROS ROS ED Constitutional Constitutional ED: Denies chills or weight loss Eyes Eyes: Denies change in vision or diplopia ENT ENT ED: Denies ear pain, rhinorrhea or sore throat Cardiovascular Cardiovascular: Denies chest pain, orthopnea, palpitations or racing heartbeat Respiratory/Chest Respiratory/Chest: Reports dyspnea and dyspnea on exertion; Denies cough or orthopnea Gastrointestinal Gastrointestinal: Denies abdominal pain, diarrhea, nausea or vomiting Genitourinary Genitourinary ED: Denies dysuria, hematuria or urinary frequency Musculoskeletal Musculoskeletal: Denies arthralgias or myalgias Integumentary Denies abscess or rash Neurologic Neurologic: Denies headache(s) or weakness Psychiatric Psychiatric: Denies anxiety, depression, suicidal ideation or suicidal thoughts Endocrine Endocrinology: Denies polydipsia, polyphagia or polyuria Allergic/Immunologic Allergic/Immunologic ED: Denies mouth swelling, tongue swelling or urticaria EXAM Physical Exam Const Vital Signs: 05/08/21 20:43 05/08/21 20:48 05/08/21 21:35 Temperature 97.7 F L Temperature Source Temporal Pulse Rate 87 77 Respiratory Rate 30 H 22 H Respiratory Effort Short of Breath Respiratory Depth Shallow Respiratory Pattern Tachypnea Tachypnea Blood Pressure 166/73 H Blood Pressure Mean 104 Pulse Ox 96 99 Oxygen Delivery Method Nasal Cannula Nasal Cannula Nasal Cannula Oxygen Flow Rate (L/min) 4 4 05/08/21 22:40 Temperature Temperature Source Pulse Rate 88 Respiratory Rate 24 H Respiratory Effort Respiratory Depth Respiratory Pattern Blood Pressure 165/74 H Blood Pressure Mean 104 Pulse Ox 99 Oxygen Delivery Method Nasal Cannula Oxygen Flow Rate (L/min) 4 Positive well nourished and well developed General Appearance ED: well developed HEENT Reports normocephalic, head/scalp atraumatic and moist mucous membranes Eyes PERRL and EOMs intact bilaterally Neck no lymphadenopathy, supple and no JVD Resp Resp Narrative: Patient appears slightly tachypneic with significantly diminished lung sounds. Auscultation: wheezes and diminished lung sounds Cardio regular rate, regular rhythm and no murmurs GI normal to inspection, nondistended, normoactive bowel sounds and non-tender Palpation: soft Back/Spine no CVA tenderness and normal ROM Extremity normal to inspection General Extremety ED: Negative for edema General Extremity: Negative for edema Neuro oriented x3 and CN's II-XII intact bilaterally Sensorium / Orientation: alert Motor Exam: strength 5/5 throughout Psych mental status grossly normal Mood & Affect: Negative for depressed or tearful Skin no rashes or lesions noted and no wounds MDM MDM MDM Narrative Medical decision making narrative: Patient received breathing treatments and Solu-Medrol. She is doing better but still significantly short of breath and hypoxic with exertion to the bedside commode. At rest on 4 L she is about 96%. White count 10.6. Lactic acid 2.6 which is most likely due to her work of breathing and the hypoxia with exertion. CMP showed a glucose of 208. Troponin of 16. My interpretation of the chest x-ray is increased markings in the right lung base compared to prior radiology feels that this is a consolidation. She has no fever no white count no change in sputum or cough. Went ahead and gave her Rocephin and azithromycin given the elevated lactate and the radiology read. Plan is admission. She is Covid negative and vaccinated Lab Data Attestation: I reviewed the patient's lab results. Labs: Laboratory Results - last 24 hr 05/08/21 05/08/21 05/08/21 21:35 21:35 21:35 WBC 10.6 RBC 3.75 L Hgb 10.1 L Hct 33.5 L MCV 89.3 MCH 26.9 L MCHC 30.1 L RDW Std Deviation 43.8 RDW Coeff of Malcom 13.3 Plt Count 270 MPV 11.4 Immature Gran % (Auto) 0.700 Neut % (Auto) 77.5 H Lymph % (Auto) 13.7 L [place] % (Auto) 5.4 Eos % (Auto) 2.1 Baso % (Auto) 0.6 Absolute Neuts (auto) 8.3 H Absolute Lymphs (auto) 1.46 Nucleated RBC % 0 Sodium 137 Potassium 3.5 Chloride 99 Carbon Dioxide 29.0 Anion Gap 9 BUN 7 Creatinine 0.92 Estim Creat Clear Calc 45.65 Est GFR (MDRD) Af Amer 77 Est GFR (MDRD) Non-Af 64 BUN/Creatinine Ratio 7.6 L Glucose 208 H Lactic Acid 2.6 H* Calcium 8.4 L Total Bilirubin 0.20 AST 12 L ALT 18 Alkaline Phosphatase 135 H Troponin I High Sens 16 Total Protein 6.7 Albumin 3.1 L Globulin 3.6 Albumin/Globulin Ratio 0.9 Radiography Diagnostic Testing: Radiology Impression Chest X-Ray 05/08/21 21:15 IMPRESSION: Right lung base consolidation. Electronically Signed: Ethan Thurman MD at 22:24 EDT Tel , Service support , EKG Initial EKG: Attestation: I personally reviewed and interpreted this EKG as follows: Comments: Normal sinus rhythm with a ventricular rate of 75 bpm. No concerning features of ACS noted. Discharge Plan Dx/Rx/DC Orders Clinical Impression: Acute exacerbation of chronic obstructive pulmonary disease Disposition Disposition: Acute Care [facility]
[2021-05-08 21:35] VITALS: PULSE 77; RESP 22; O2SAT 99
[2021-05-08] MEDS: Ipratropium/Albuterol Sulfate 3 ML AMPUL.NEB INHALATION (21:35)
[2021-05-08] MEDS: Albuterol 2.5 MG/3 ML VIAL.NEB. INHALATION ×2 (21:36→21:40)
[2021-05-08 21:58] LABS: Absolute Lymphocyte Count 1.46 X10^3/uL (0.83-4.51); Absolute Neutrophil Count 8.3 X10^3/uL (2.0-7.7); Basophil# 0.06 X10^3/uL; Basophil% 0.6 % (0-1); Eosinophil# 0.22 X10^3/uL; Eosinophils% 2.1 % (0-5); Hematocrit 33.5 % (37-47); Hemoglobin 10.1 g/dL (12.0-15.0); Lymphocyte # 1.46 X10^3/ul (0.83-4.51); Lymphocyte % 13.7 % (19-41); Mean Corp Hgb Conc 30.1 g/dL (32-36); Mean Corpuscular Hgb 26.9 pg (27.0-32.0); Mean Corpuscular Volume 89.3 fL (81-99); Mean Platelet Vol. 11.4 fl (6.2-12.0); Monocyte# 0.57 X10^3/uL; Monocyte% 5.4 % (0-10); NRBC Flagged by Analyzer 0 % (0-5); Neutrophil # 8.25 X10^3/uL (2.7-7.7); Neutrophil % 77.5 % (47-70); Platelet Count 270 K/mm3 (150-450); RBC Distribution Width CV 13.3 % (11.6-14.6); RBC Distribution Width SD 43.8 fl (35.1-43.9); Red Blood Count 3.75 M/mm3 (4.2-5.4); White Blood Count 10.6 K/mm3 (4.4-11.0)
[2021-05-08 22:19] LABS: ALB/GLOB Ratio 0.9 RATIO (0.9-2.4); AST(SGOT) 12 U/L (15-37); Alanine Aminotransfer ALT/SGPT 18 U/L (13-56); Albumin, Serum 3.1 g/dL (3.2-5.0); Alkaline Phosphatase 135 U/L (45-117); Anion Gap 9 (5-15); BUN 7 mg/dL (7-18); BUN/Creat Ratio 7.6 RATIO (10-20); Calcium,Total 8.4 mg/dL (8.5-10.1); Chloride 99 mmol/L (98-107); Creatinine, Serum 0.92 mg/dL (0.55-1.02); EST Glomerular Filtration Rate 64 mL/min (>60); Est Glom Filt Rate - Afr Amer 77 mL/min (>60); Estimated Creatinine Clearance 45.65 ml/min; Globulin 3.6 g/dL (2.2-4.2); Glucose 208 mg/dL (74-106); Lactic Acid 2.6 mmol/L (0.4-1.9); Potassium 3.5 mmol/L (3.5-5.1); Protein, Total 6.7 g/dL (6.4-8.2); Sodium Level 137 mmol/L (136-145); Troponin-I HS 16 pg/mL (3.0-54.0)
[2021-05-08] MEDS: MethylPREDNISolone 125 MG/2 ML Vial IV (22:27)
[2021-05-08] MEDS: 0.9% Normal Saline 1,000 ML 1000 ML IV (22:30)
[2021-05-08 22:40] VITALS: BP 165/74; PULSE 88; RESP 24; O2SAT 99
[2021-05-08] MEDS: Ceftriaxone 1 GM/50 ML BAG IV (22:58)
--- NOTE | 2021-05-08 23:17 | HP.PCM.HOS_ITS ---
HPI - General General Date of Admission: 05/08/21 HPI Narrative TIM CEDILLO, is a 70 F with a significant history of dermatomyositis; COPD on 4 L home oxygen who presents to the emergent department with 1 week history of progressively worsening shortness of breath. Associated with symptoms is hemoptysis and bloody nasal discharge. Patient denies fever. On the day of presentation she had chills. She reports fatigue and weakness. She denies anosmia. She received 2 doses of more than a COVID-19 vaccination in October 2020. Patient was at her principal cloud architect office on 04/29/2021 where her respiratory status was stable; patient was given vaccination on that day. [facility] Medical History Atherosclerotic heart disease of [place] coronary artery without angina pectoris Back pain CHF (congestive heart failure) COPD (chronic obstructive pulmonary disease) Depression Health care maintenance Heart disease History of constipation HLD (hyperlipidemia) Hypertension Lung disease Psoriasis SOB (shortness of breath) Home Medications acetaminophen 1,000 mg PO TID PRN #1 tab 03/16/20 [Rx Last Taken 07/15/20 15:00] metformin 500 mg tablet,extended release 24 hr 1,000 mg PO QPM #180 tab 05/09/20 [Rx Last Taken 07/14/20 21:00] ipratropium 0.5 mg-albuterol 3 mg (2.5 mg base)/3 mL nebulization soln 3 ml INHALATION Q4H PRN PRN #180 ml 07/11/20 [Rx Last Taken 07/15/20 18:00] losartan 25 mg tablet 25 mg PO DAILY #90 tab 08/08/20 [Rx Last Taken Unknown] nitroglycerin 0.4 mg sublingual tablet 0.4 mg SUBLINGUAL Q5-15M #25 tab 08/13/20 [Rx Last Taken Unknown] docusate sodium 100 mg capsule 100 mg PO BID PRN #60 cap 09/26/20 [Rx Last Taken Unknown] clopidogrel 75 mg tablet 75 mg PO DAILY #90 tab 10/08/20 [Rx Last Taken Unknown] blood sugar diagnostic #100 each 11/05/20 [Rx Last Taken Unknown] pen needle, diabetic 32 gauge x #50 ea 12/06/20 [History Last Taken Unknown] atorvastatin 80 mg tablet 80 mg PO QHS #90 tab 12/09/20 [Rx Last Taken Unknown] Handicap Placard #1 ea 12/12/20 [Rx Last Taken Unknown] aspirin 81 mg tablet,delayed release 81 mg PO DAILY 12/27/20 [History Last Taken Unknown] citalopram 40 mg tablet 40 mg PO QHS tab 12/27/20 [History Last Taken Unknown] loratadine 10 mg tablet 10 mg PO DAILY #90 tab 12/30/20 [Rx Last Taken Unknown] pantoprazole 40 mg tablet,delayed release 40 mg PO DAILY #90 tab 01/07/21 [Rx Last Taken Unknown] insulin lispro 100 unit/mL subcutaneous pen 15 unit SC TID #54 ml 01/23/21 [Rx Last Taken Unknown] flash glucose scanning reader #1 ea 01/31/21 [Rx Last Taken Unknown] flash glucose sensor #2 ea 01/31/21 [Rx Last Taken Unknown] albuterol sulfate 90 mcg/actuation aerosol inhaler 2 puff INHALATION Q6H PRN #18 g 02/06/21 [Rx Last Taken Unknown] calcipotriene 0.005 % topical cream 1 applic TOPICAL DAILY #120 g 03/07/21 [Rx Last Taken Unknown] clobetasol 0.05 % topical cream 1 applic TOPICAL BID 14 Days #60 g 03/10/21 [Rx Last Taken Unknown] insulin glargine 100 unit/mL (3 mL) subcutaneous pen 36 unit SUBCUT DAILY 90 Days #32.4 ml 03/10/21 [Rx Last Taken Unknown] alprazolam 0.25 mg tablet 0.25 mg PO DAILY PRN #30 tab 04/09/21 [Rx Last Taken Unknown] risperidone 1 mg tablet 1 mg PO QHS #30 tab 04/09/21 [Rx Last Taken Unknown] metoprolol tartrate 25 mg tablet 12.5 mg PO BID #90 tab 04/25/21 [Rx Last Taken Unknown] fluticasone propionate 50 mcg/actuation nasal spray,suspension 1 spray INTRANASAL DAILY #16 g 04/29/21 [Rx Last Taken Unknown] Allergy/AdvReac Type Severity Reaction Status Date / Time amoxicillin [Amoxicillin] Allergy Intermediate Rash Verified 05/08/21 20:41 gabapentin [From Neurontin] Allergy Shortness Verified 05/08/21 20:41 of breath levofloxacin [From Levaquin] Allergy Hives Verified 05/08/21 20:41 pseudoephedrine HCl Allergy Shortness Verified 05/08/21 20:41 [From Sudafed] of breath red dye Allergy Hives Verified 05/08/21 20:41 codeine AdvReac HEADACHE Verified 05/08/21 20:41 Family History Brother Heart disease Mother Colon cancer Heart disease Surgical History History of cholecystectomy History of left heart catheterization (LHC) (~09/23/20) Stented coronary artery (12/28/18) Social History Smoking Status: Former smoker pack-years: 40 how long ago did patient quit smokin year ago alcohol intake: never substance use type: does not use caffeine: Yes Type: carbonated beverages and tea what type of physical activity do you participate in: none ROS ROS Narrative Constitutional: Reports fever and fatigue. Denies anorexia. Eyes: Denies blurry vision, change in eye color, change in vision, discharge f rom eye(s), double vision, erythema, eye pain, loss of vision or other HEENT: Denies abnormal hearing, dysphagia, ear pain, epistaxis, headache(s), hearing loss, nasal congestion, nasal discharge, post nasal drip, sinus pressure, sore throat or other Cardiovascular: Denies chest pain or palpitations. Respiratory/Chest: Reports cough, reports hemoptysis. Reports shortness of breath. Gastrointestinal: Had nausea and vomiting at the emergency department. Denies abdominal pain, coffee ground emesis, constipation, diarrhea, dyspepsia, hematemesis, hematochezia, loose stools, melena, or other Genitourinary: Denies burning urination, difficulty urinating, dysuria, hematuria, nocturia, urinary frequency, urinary hesitancy, urinary incontinence, urinary urgency or other Musculoskeletal: Denies arthralgias, back pain, joint pain, joint stiffness, joint swelling, myalgias, neck pain or other Neurologic: Denies abnormal gait, abnormal speech, confusion, disequilibrium, dizziness, focal weakness, headache(s), numbness, paresthesias, seizure-like activity, seizures, syncope, tingling, tremor(s) or other Psychiatric: Denies anxiety, depression, homicidal ideation, suicidal ideation or other Endocrinology: Denies change in body appearance, cold intolerance, excessive sweating, heat intolerance, polydipsia, polyuria or other Hematologic/Lymphatic: Denies anemia, easy bleeding, easy bruising, lymphadenopathy or other Integumentary: Reports rashes under her left foot Allergic/Immunologic: Denies rhinitis, hives, eczema, or other Vital Signs Vital Signs Vital Signs: 05/08/21 20:43 05/08/21 20:48 05/08/21 21:35 Temperature 97.7 F L Temperature Source Temporal Pulse Rate 87 77 Respiratory Rate 30 H 22 H Respiratory Effort Short of Breath Respiratory Depth Shallow Respiratory Pattern Tachypnea Tachypnea Blood Pressure 166/73 H Blood Pressure Mean 104 Pulse Ox 96 99 Oxygen Delivery Method Nasal Cannula Nasal Cannula Nasal Cannula Oxygen Flow Rate (L/min) 4 4 05/08/21 22:40 Temperature Temperature Source Pulse Rate 88 Respiratory Rate 24 H Respiratory Effort Respiratory Depth Respiratory Pattern Blood Pressure 165/74 H Blood Pressure Mean 104 Pulse Ox 99 Oxygen Delivery Method Nasal Cannula Oxygen Flow Rate (L/min) 4 Weight Weight: 100.8 kg Body Mass Index (BMI) 40.6 Physical Exam Narrative Physical exam: General: Well-nourished, well-developed. Head: Normocephalic, atraumatic, no tenderness Eyes: PERRLA, EOMI ENT, no trauma, moist mucous membranes, no rhinorrhea Neck: Nontender, full range of motion, no spinal tenderness, deformities, step- off CVS: Tachycardia. No murmur, gallop or rub. Respiratory : Mild diffuse wheezes. Rales at left base Abdomen: Soft, nontender, nondistended, normal bowel sounds, no masses : Deferred Back: Nontender, no CVA tenderness, no midline spinal tenderness, deformities, step-offs Extremities: Nontender full range of motion, no trauma Skin: Normal color, no trauma, abrasions Neuro: Alert, oriented, cranial nerves II through XII grossly intact. Psychiatry: Not depressed. Anxious. Results Lab / Micro Data Result Diagrams: 05/08/21 21:35 05/08/21 21:35 Labs: Laboratory Results - last 24 hr 05/08/21 21:35: WBC 10.6, RBC 3.75 L, Hgb 10.1 L, Hct 33.5 L, MCV 89.3, MCH 26.9 L, MCHC 30.1 L, RDW Std Deviation 43.8, RDW Coeff of [place]com 13.3, Plt Count 270, MPV 11.4, Immature Gran % (Auto) 0.700, Neut % (Auto) 77.5 H, Lymph % (Auto) 13.7 L, [place] % (Auto) 5.4, Eos % (Auto) 2.1, Baso % (Auto) 0.6, Absolute Neuts (auto) 8.3 H, Absolute Lymphs (auto) 1.46, Nucleated RBC % 0 05/08/21 21:35: Sodium 137, Potassium 3.5, Chloride 99, Carbon Dioxide 29.0, Anion Gap 9, BUN 7, Creatinine 0.92, Estim Creat Clear Calc 45.65, Est GFR (MDRD) Af Amer 77, Est GFR (MDRD) Non-Af 64, BUN/Creatinine Ratio 7.6 L, Glucose 208 H, Calcium 8.4 L, Total Bilirubin 0.20, AST 12 L, ALT 18, Alkaline Phosphatase 135 H, Troponin I High Sens 16, Total Protein 6.7, Albumin 3.1 L, Globulin 3.6, Albumin/Globulin Ratio 0.9 05/08/21 21:35: Lactic Acid 2.6 H* Micro: Microbiology 05/08/21 21:35 Nasal Secretion SARS-CoV-2 Antigen (Rapid) - Final Radiology Impression Chest X-Ray 05/08/21 21:15 IMPRESSION: Right lung base consolidation. Electronically Signed: Ethan Thurman MD at 22:24 EDT Tel , Service support , Assessment & Plan Assessment/Plan (1) Respiratory failure with hypoxia and hypercapnia: QUALIFIERS: Chronicity: acute on chronic Qualified Code(s): J96.21 - Acute and chronic respiratory failure with hypoxia; J96.22 - Acute and chronic respiratory failure with hypercapnia (2) Acute exacerbation of chronic obstructive pulmonary disease: (3) Pneumonia: QUALIFIERS: Laterality: right Lung location: lower lobe of lung Pneumonia type: due to unspecified organism Qualified Code(s): J18.9 - Pneumonia, unspecified organism PLAN: Acute on chronic hypercapnic and hypoxemic respiratory failure Likely from COPD exacerbation; sepsis secondary to pneumonia. At this point, can not rule out pulmonary emboli. Disposition: Initially plan was to admit patient to medical surgical unit since patient was actually on 3 L of nasal cannula and she was satting around 100%. Of note at home at baseline she is on 4 L nasal cannula even though within the past week she had increase her flow rate to 5.5 L. Patient was sent for CTA of the chest since she complained of hemoptysis and the plan was to rule out PE. However reportedly patient could not lie down flat for CTA of her chest. As patient stayed in the ED she continued to have increased work of breathing; tachycardia and increased respiratory rate for which ABG and BiPAP was ordered and the plan was changed to admit patient to the progressive care unit. ABG later returned with pH of 7.31; PCO2 of 52.9 and PO2 of 97. Patient was nonrebreather mask when ABG was taken. While at the emergent department outpatient work of breathing increased tremendously. Her respiratory rate increased to the higher 30s. Chest x-ray was repeated. Lasix was given empirically. Nitroglycerin paste was placed empirically on patient's chest. Lasix 80 mg IV push was ordered. Heparin bolus and drip was ordered. Initial chest x-ray and follow-up chest x-ray was remarkable for a chronic left lateral costophrenic angle pleural thickening and right lower lung opacification. Actual chest x-ray was independently interpreted and I agree radiologist interpretation. A decision was made to admit patient to the intensive care unit and for cash applications representative to be consulted. Nurse who had seen patient on previous visits recount that patient had a similar presentation and it is possible that there may be a component of anxiety going on. Patient is on home Xanax. Will give a one-time dose of Ativan IV. DuoNeb [id number] ordered. Patient received ceftriaxone and azithromycin emergency department and continued. Rapid Covid antigen was negative. Patient chest x-ray does not look like Covid. We will get a comprehensive respiratory pathogen panel. Blood culture was ordered at the emergent department; follow. We will get a procalcitonin; Legionella urine antigen and strep pneumonia urine antigen. Patient meets SIRS criteria with tachycardia (heart rate more than 90); tachypnea (respiratory rate more than 20) possible source of infection lungs. qSOFA is 1 (respiratory rate more than 20). Initial white count was 10.6 but did increase markedly to 17. Neutrophilia and lymphopenia was noted. Of note patient had received steroids at the ED. Lactic acid 2.6. Of note patient is on Metformin. Acute respiratory failure requiring BiPAP. Blood culture was ordered at the emergency department; follow. Trend lactic acid. Sputum culture ordered. [id number] DuoNeb ordered.. Albuterol ordered. Received Solu-Medrol 125 mg emergency department. Solu-Medrol 40 mg every 8 hours ordered. Hypertensive emergency Elevated blood pressure with systolics in the 200 and evidence of respiratory failure. Metoprolol and losartan continued. One-time dose of nitroglycerin paste ordered. Lasix IV push x1 ordered. Trend blood pressure and adjust blood pressure medications. Anxiety disorder Continue Xanax. One-time dose of Ativan IV ordered Diabetes mellitus Patient with hyperglycemia on presentation Home basal insulin continued. Home prandial insulin continued. Hold Metformin. Accu-Chek QA CHS with correction scale insulin ordered. DVT prophylaxis: Not indicated since patient already started on heparin drip for possible PE. Charges/Coding Visit Charges Inpatient E&M: 94716 Init Hosp L3
[2021-05-09] VITALS (38 sets, daily range): BP systolic 109–215; BP diastolic 53–116; PULSE 68–116; RESP 12–45; TEMP 36.3–36.8; O2SAT 94–198; BMI 40.4
--- NOTE | 2021-05-09 00:18 | ED.RN ---
pt remains on NRB. respers 24-36. Dr. Singh present in room and changed admission status to PCU. RT in room drawing ABG's. Pt requesting Bipap. Bipap applied per RT
--- NOTE | 2021-05-09 00:25 | ED.RN ---
small emesis of undigested food. pt denies nausea. RT here to apply bipap.
--- NOTE | 2021-05-09 00:34 | RAD_ITS ---
STUDY: X-RAY CHEST REASON FOR EXAM: Female, 70 years old. Increased sob TECHNIQUE: Portable, upright, AP chest radiograph COMPARISON: 05/08/2021 RAD/Chest 1 View (Portable) IMPRESSION: Similar appearance of right lower lung opacification and left lateral costophrenic angle pleural thickening. Electronically Signed: Ethan Thurman MD at 1:54 EDT Tel , Service support ,
[2021-05-09 00:46] LABS: Allen Test Positive; Base Excess 1 mmol/L (-2 to +2); Bicarbonate 26.8 mmol/L (22-26); Blood Gas Specimen Type ART; FI02 100; O2 Delivery Device NRB; PO2 97 mmHG (75-100); SITE L Radial; SO2 97 % (95-99); Total Carbon Dioxide 28 mmol/L; pCO2 52.9 mmHg (35-45); pH 7.31 (7.35-7.45)
[2021-05-09] MEDS: Ondansetron 4 MG/2 ML Vial 8 MG IV (00:47)
--- NOTE | 2021-05-09 00:50 | CPS ---
Patient's BiPAP settings increased for continued SOB.
[2021-05-09] MEDS: Furosemide 100 MG/10 ML Vial 80 MG IV (00:56)
[2021-05-09] MEDS: Nitroglycerin Oint 1 INCH PACKET TD (00:56)
[2021-05-09 01:48] LABS: Reflex Lactate? Y
[2021-05-09 01:52] LABS: Prothrombin Time (Protime)PT. 12.9 SECONDS (11.7-14.9)
[2021-05-09 01:53] LABS: Partial Thromboplast Time 27.5 Seconds (24.1-36.2)
[2021-05-09] MEDS: ALPRAZolam 0.25 MG Tablet PO ×2 (02:09→21:01)
[2021-05-09 02:20] LABS: Absolute Lymphocyte Count 0.46 X10^3/uL (0.83-4.51); Absolute Neutrophil Count 16.1 X10^3/uL (2.0-7.7); Basophil# 0.06 X10^3/uL; Basophil% 0.4 % (0-1); Eosinophil# 0.01 X10^3/uL; Eosinophils% 0.1 % (0-5); Hematocrit 34.3 % (37-47); Hemoglobin 10.7 g/dL (12.0-15.0); Lymphocyte # 0.46 X10^3/ul (0.83-4.51); Lymphocyte % 2.7 % (19-41); Mean Corp Hgb Conc 31.2 g/dL (32-36); Mean Corpuscular Hgb 27.4 pg (27.0-32.0); Mean Corpuscular Volume 87.9 fL (81-99); Mean Platelet Vol. 11.2 fl (6.2-12.0); Monocyte# 0.23 X10^3/uL; Monocyte% 1.4 % (0-10); NRBC Flagged by Analyzer 0 % (0-5); Neutrophil # 16.13 X10^3/uL (2.7-7.7); Neutrophil % 94.6 % (47-70); POSITIVE DIFFERENTIAL YES; Platelet Count 289 K/mm3 (150-450); RBC Distribution Width CV 13.4 % (11.6-14.6); RBC Distribution Width SD 43.1 fl (35.1-43.9)
[2021-05-09 02:26] LABS: Differential Indicated SCAN CRITERIA MET
[2021-05-09] MEDS: LORazepam 2 MG/ML Syringe 1 MG IV (02:36)
[2021-05-09 02:48] LABS: Anion Gap 9 (5-15); BUN 9 mg/dL (7-18); Calcium,Total 8.7 mg/dL (8.5-10.1); Chloride 97 mmol/L (98-107); Creatinine, Serum 1.13 mg/dL (0.55-1.02); EST Glomerular Filtration Rate 51 mL/min (>60); Est Glom Filt Rate - Afr Amer 61 mL/min (>60); Estimated Creatinine Clearance 37.16 ml/min; Glucose 484 mg/dL (74-106); Potassium 3.8 mmol/L (3.5-5.1); Sodium Level 135 mmol/L (136-145)
[2021-05-09 02:49] LABS: Lactic Acid 3.4 mmol/L (0.4-1.9)
--- NOTE | 2021-05-09 03:00 | CT_ITS ---
STUDY: CTA CHEST REASON FOR EXAM: Female, 70 years old. Hemoptysis RADIATION DOSAGE (If Supplied By Facility): CTDIvol = ( 12.65 ) mGy, DLP = ( 527.70 ) mGycm TECHNIQUE: The examination was performed with the intravenous administration of IV 100mL Isovue-370. Post-processing of the angiographic images was performed, with multiplanar reformation and 3D reconstruction. Individualized dose optimization techniques were used for this CT. COMPARISON: 01/15/2021 FINDINGS: Normal enhancement of the main pulmonary artery and right and left pulmonary arteries. Normal enhancement of the bilateral peripheral pulmonary arteries. There is no demonstrated pulmonary embolism. Normal thoracic aorta and visualized great vessels. There is no demonstrated aortic dissection. Normal heart and pericardium. Normal mediastinum. Normal hilar regions. Normal visualized trachea and bronchi. The lungs are well expanded. Right lower lobe consolidations. Diffuse right and lower left lung infiltrates. Small bilateral pleural effusions. Normal chest wall structures. 1.1 cm hypoenhancing right thyroid nodule. Normal osseous structures. Normal visualized upper abdomen. CT/CTA Chest W/WO Contrast IMPRESSION: Multifocal pneumonia with right lower lobe consolidations. Small bilateral pleural effusions. No demonstrated pulmonary embolism or arterial dissection. Electronically Signed: Ethan Thurman MD at 4:12 EDT Tel , Service support ,
[2021-05-09 03:04] LABS: Differential Comment SCANNED
[2021-05-09] MEDS: Insulin Lispro 100 UNIT/ML INSULN.PEN 8 UNIT SC (03:20)
--- NOTE | 2021-05-09 04:09 | NURSING ---
pt taken to ct scan after being medicated to tolerate it w ativan, did well 02 at [address] the ct
[2021-05-09] MEDS: Nystatin Powder 15gm Bottle 1 APPLIC TOPICAL ×3 (04:45→21:01)
[2021-05-09 06:30] LABS: Bedside Glucose 332 mg/dL (70-110)
[2021-05-09] MEDS: Ipratropium/Albuterol Sulfate 3 ML AMPUL.NEB INHALATION ×4 (06:57→18:57)
--- NOTE | 2021-05-09 07:43 | EX.PCM.CONCC ---
Assessment & Plan Assessment/Plan (1) Respiratory failure with hypoxia and hypercapnia: QUALIFIERS: Chronicity: acute on chronic Qualified Code(s): J96.21 - Acute and chronic respiratory failure with hypoxia; J96.22 - Acute and chronic respiratory failure with hypercapnia (2) MARK (obstructive sleep apnea): (3) Asthma with COPD: (4) Chronic respiratory failure: QUALIFIERS: Respiratory failure complication: hypoxia Qualified Code(s): J96.11 - Chronic respiratory failure with hypoxia PLAN: RECOMMENDATIONS: 1. Continue antibiotics and steroids for now 2. Aggressive control of blood pressure 3. Wean oxygen as tolerated 4. Await results of culture 5. Okay to leave the intensive care unit from my perspective IMPRESSIONS: 1. Acute on chronic combined respiratory failure Exact etiology is unclear at this time. Patient did have rapid recovery following Lasix making congestive heart failure or flash pulmonary edema a significant concern. Patient does have significant underlying obstructive lung disease, so a COPD exacerbation would also be a possibility. Patient is on bronchodilators and Solu-Medrol. However, it would be unlikely that a COPD exacerbation would recover so quickly. Recommend continuing antibiotics until cultures are resulted. Patient does appear to be improved from a respiratory standpoint and can likely be moved from the intensive care unit. 2. Hypertensive emergency/anxiety disorder Patient with significant decompensation when systolics were greater than 200. Unclear if this is related to anxiety versus having anxiety as a result of her pulmonary edema. Aggressively control blood pressure. Defer to primary service if cardiology needs to be involved. 3. 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 We will watch H&H's this patient does have some anemia. Patient would likely benefit from nocturnal CPAP, but has not tolerated this in the past. HPI Consult Data Date of Consult: 05/09/21 HPI Narrative HPI Narrative: TIM CEDILLO is a 70 F, with past medical history listed below and well-known to me from the outpatient office, who presents to [facility] on 05/08/2021 secondary to progressive shortness of breath on exertion. Patient is on 4 L nasal cannula at baseline, but had to increase to 5 L/min. Patient stated that she started to get much more short of breath and could not breathe on the night of presentation, so EMS was called. Patient did not reported any change in her sputum or fevers. Patient had tried breathing treatments at home with no relief. Patient has been immunized against COVID-19. In the ER, patient was afebrile, but tachypneic at 30 breaths/min. Patient's blood pressure was elevated at 166/73 and she was able to tolerate her 4 L nasal cannula. Laboratory work-up showed no leukocytosis, but anemia at 10.1. Renal function was within normal limits, but lactate was elevated at 2.6. Alkaline phosphatase was elevated at 135. Chest x-ray showed a possible right lung consolidation. Patient was given Rocephin and azithromycin. Patient was Covid negative. Since being in the intensive care unit, patient feels that she is much improved. Patient had had significant worsening of her shortness of breath initially upon arrival to the floor. Patient was placed on BiPAP therapy and then given Lasix. Patient had over 2 L of output and is now back to her 4 L nasal cannula. Patient has had some issues with epistaxis and associated hemoptysis. Patient did receive a flu shot on 04/29/2021. Patient denies any environmental exposures. Patient is not reporting a change in diet. Review of systems otherwise negative from a constitutional, HEENT, respiratory, cardiovascular, GI, genitourinary, musculoskeletal, skin, neurologic, psychiatric and hematologic system unless stated above. [facility] Medical History Atherosclerotic heart disease of [place] coronary artery without angina pectoris Back pain CHF (congestive heart failure) COPD (chronic obstructive pulmonary disease) Depression Health care maintenance Heart disease History of constipation HLD (hyperlipidemia) Hypertension Lung disease Psoriasis SOB (shortness of breath) Home Medications acetaminophen 1,000 mg PO TID PRN #1 tab 03/16/20 [Rx Last Taken 07/15/20 15:00] metformin 500 mg tablet,extended release 24 hr 1,000 mg PO QPM #180 tab 05/09/20 [Rx Last Taken 07/14/20 21:00] ipratropium 0.5 mg-albuterol 3 mg (2.5 mg base)/3 mL nebulization soln 3 ml INHALATION Q4H PRN PRN #180 ml 07/11/20 [Rx Last Taken 07/15/20 18:00] losartan 25 mg tablet 25 mg PO DAILY #90 tab 08/08/20 [Rx Last Taken Unknown] nitroglycerin 0.4 mg sublingual tablet 0.4 mg SUBLINGUAL Q5-15M #25 tab 08/13/20 [Rx Last Taken Unknown] docusate sodium 100 mg capsule 100 mg PO BID PRN #60 cap 09/26/20 [Rx Last Taken Unknown] clopidogrel 75 mg tablet 75 mg PO DAILY #90 tab 10/08/20 [Rx Last Taken Unknown] blood sugar diagnostic #100 each 11/05/20 [Rx Last Taken Unknown] pen needle, diabetic 32 gauge x #50 ea 12/06/20 [History Last Taken Unknown] atorvastatin 80 mg tablet 80 mg PO QHS #90 tab 12/09/20 [Rx Last Taken Unknown] Handicap Placard #1 ea 12/12/20 [Rx Last Taken Unknown] aspirin 81 mg tablet,delayed release 81 mg PO DAILY 12/27/20 [History Last Taken Unknown] citalopram 40 mg tablet 40 mg PO QHS tab 12/27/20 [History Last Taken Unknown] loratadine 10 mg tablet 10 mg PO DAILY #90 tab 12/30/20 [Rx Last Taken Unknown] pantoprazole 40 mg tablet,delayed release 40 mg PO DAILY #90 tab 01/07/21 [Rx Last Taken Unknown] insulin lispro 100 unit/mL subcutaneous pen 15 unit SC TID #54 ml 01/23/21 [Rx Last Taken Unknown] flash glucose scanning reader #1 ea 01/31/21 [Rx Last Taken Unknown] flash glucose sensor #2 ea 01/31/21 [Rx Last Taken Unknown] albuterol sulfate 90 mcg/actuation aerosol inhaler 2 puff INHALATION Q6H PRN #18 g 02/06/21 [Rx Last Taken Unknown] calcipotriene 0.005 % topical cream 1 applic TOPICAL DAILY #120 g 03/07/21 [Rx Last Taken Unknown] clobetasol 0.05 % topical cream 1 applic TOPICAL BID 14 Days #60 g 03/10/21 [Rx Last Taken Unknown] insulin glargine 100 unit/mL (3 mL) subcutaneous pen 36 unit SUBCUT DAILY 90 Days #32.4 ml 03/10/21 [Rx Last Taken Unknown] alprazolam 0.25 mg tablet 0.25 mg PO DAILY PRN #30 tab 09/01/21 [Rx Last Taken Unknown] risperidone 1 mg tablet 1 mg PO QHS #30 tab 04/09/21 [Rx Last Taken Unknown] metoprolol tartrate 25 mg tablet 12.5 mg PO BID #90 tab 04/25/21 [Rx Last Taken Unknown] fluticasone propionate 50 mcg/actuation nasal spray,suspension 1 spray INTRANASAL DAILY #16 g 04/29/21 [Rx Last Taken Unknown] Allergy/AdvReac Type Severity Reaction Status Date / Time amoxicillin [Amoxicillin] Allergy Intermediate Rash Verified 05/08/21 20:41 gabapentin [From Neurontin] Allergy Shortness Verified 05/08/21 20:41 of breath levofloxacin [From Levaquin] Allergy Hives Verified 05/08/21 20:41 pseudoephedrine HCl Allergy Shortness Verified 05/08/21 20:41 [From Sudafed] of breath red dye Allergy Hives Verified 05/08/21 20:41 codeine AdvReac HEADACHE Verified 05/08/21 20:41 Family History Brother Heart disease Mother Colon cancer Heart disease Surgical History History of cholecystectomy History of left heart catheterization (LHC) (~09/23/20) Stented coronary artery (12/28/18) Social History Smoking Status: Former smoker pack-years: 40 how long ago did patient quit smokin year ago alcohol intake: never substance use type: does not use caffeine: Yes Type: carbonated beverages and tea what type of physical activity do you participate in: none ROS ROS Narrative See HPI Physical Exam Const alert, oriented x3 and no apparent distress General Appearance: cooperative and well developed Nutritional Appearance: morbidly obese HEENT normocephalic, head/scalp atraumatic and moist oral mucous membranes Eyes PERRL and EOMs intact bilaterally Neck full ROM and no lymphadenopathy Chest inspection of chest normal Resp Auscultation: rales right base and diminished lung sounds; Negative for rhonchi or wheezes Percussion: Negative for dullness Cardio regular rate, regular rhythm, S1 normal heart sound, S2 normal heart sound, no murmurs, no rub and no gallops GI normal to inspection, nondistended, normoactive bowel sounds no CVA tenderness Extremity General Extremity: clubbing and edema bilateral lower extremity; Negative for cyanosis Skin no rashes or lesions noted Neuro oriented x3, CN's II-XII intact bilaterally, moves all extremities and no focal motor deficits Psych cooperative and affect normal Lab / Micro Data Result Diagrams: 05/09/21 02:05 05/09/21 02:05 Labs: Laboratory Results - last 24 hr 05/08/21 21:35: WBC 10.6, RBC 3.75 L, Hgb 10.1 L, Hct 33.5 L, MCV 89.3, MCH 26.9 L, MCHC 30.1 L, RDW Std Deviation 43.8, RDW Coeff of Malcom 13.3, Plt Count 270, MPV 11.4, Immature Gran % (Auto) 0.700, Neut % (Auto) 77.5 H, Lymph % (Auto) 13.7 L, [place]cd[place] % (Auto) 5.4, Eos % (Auto) 2.1, Baso % (Auto) 0.6, Absolute Neuts (auto) 8.3 H, Absolute Lymphs (auto) 1.46, Nucleated RBC % 0 05/08/21 21:35: Sodium 137, Potassium 3.5, Chloride 99, Carbon Dioxide 29.0, Anion Gap 9, BUN 7, Creatinine 0.92, Estim Creat Clear Calc 45.65, Est GFR (MDRD) Af Amer 77, Est GFR (MDRD) Non-Af 64, BUN/Creatinine Ratio 7.6 L, Glucose 208 H, Calcium 8.4 L, Total Bilirubin 0.20, AST 12 L, ALT 18, Alkaline Phosphatase 135 H, Troponin I High Sens 16, Total Protein 6.7, Albumin 3.1 L, Globulin 3.6, Albumin/Globulin Ratio 0.9 05/08/21 21:35: Lactic Acid 2.6 H* 05/09/21 01:10: PT 12.9, INR 1.0, APTT 27.5 05/09/21 02:05: Lactic Acid 3.4 H* 05/09/21 02:05: Sodium 135 L, Potassium 3.8, Chloride 97 L, Carbon Dioxide 29.0, Anion Gap 9, BUN 9, Creatinine 1.13 H, Estim Creat Clear Calc 37.16, Est GFR (MDRD) Af Amer 61, Est GFR (MDRD) Non-Af 51 L, BUN/Creatinine Ratio 8.0 L, Glucose 484 H*, Calcium 8.7 05/09/21 02:05: WBC 17.0 H, RBC 3.90 L, Hgb 10.7 L, Hct 34.3 L, MCV 87.9, MCH 27.4, MCHC 31.2 L, RDW Std Deviation 43.1, RDW Coeff of Malcom 13.4, Plt Count 289, MPV 11.2, Immature Gran % (Auto) 0.800, Neut % (Auto) 94.6 H, Lymph % (Auto) 2.7 L, [place]cd[place] % (Auto) 1.4, Eos % (Auto) 0.1, Baso % (Auto) 0.4, Absolute Neuts (auto) 16.1 H, Absolute Lymphs (auto) 0.46 L, Nucleated RBC % 0, Differential Comment SCANNED 05/09/21 06:23: POC Glucose 332 H Micro: Microbiology 05/09/21 03:18 Urine, Clean Catch Legionella Antigen - Final 05/09/21 03:18 Urine, Clean Catch Streptococcus pneumoniae Antigen (M - Final 05/08/21 21:35 Nasal Secretion SARS-CoV-2 Antigen (Rapid) - Final ABG Data ABG results: ABG 05/09/21 00:36 Specimen Type ART Sample Site L Radial pH 7.31 L Bicarbonate Actual 26.8 H Total CO2 28 Base Excess 1 O2 Saturation 97 O2 % 100 ABG pCO2 52.9 H ABG pO2 97 Dima Test Positive O2 Delivery Device NRB Radiology Impression Chest X-Ray 05/08/21 21:15 IMPRESSION: Right lung base consolidation. Electronically Signed: Ethan Thurman MD at 22:24 EDT Tel , Service support , Chest X-Ray 05/09/21 00:34 IMPRESSION: Similar appearance of right lower lung opacification and left lateral costophrenic angle pleural thickening. Electronically Signed: Ethan Thurman MD at 1:54 EDT Tel , Service support , Chest CTA 05/09/21 03:00 IMPRESSION: Multifocal pneumonia with right lower lobe consolidations. Small bilateral pleural effusions. No demonstrated pulmonary embolism or arterial dissection. Electronically Signed: Ethan Thurman MD at 4:12 EDT Tel , Service support , Charges/Coding Visit Charges Inpatient E&M: 24591 Init Hosp L3
[2021-05-09] MEDS: Ceftriaxone 1 GM/50 ML BAG IV ×2 (08:03→21:00)
[2021-05-09] MEDS: Insulin Lispro 100 UNIT/ML INSULN.PEN SC ×4 (08:04→21:02)
[2021-05-09] MEDS: Insulin Lispro 100 UNIT/ML INSULN.PEN 15 UNIT SC ×3 (08:04→16:26)
[2021-05-09] MEDS: Metoprolol Tartrate 25 MG Tablet 12.5 MG PO ×2 (08:04→21:01)
[2021-05-09] MEDS: Losartan Potassium 25 MG Tablet PO (08:05)
[2021-05-09] MEDS: Loratadine 10 MG Tablet PO (08:05)
[2021-05-09] MEDS: Enoxaparin 40 MG/0.4 ML Syringe SC (08:06)
[2021-05-09] MEDS: Clopidogrel Bisulfate 75 MG Tablet PO (08:07)
[2021-05-09] MEDS: Pantoprazole Sodium 40 MG Tablet PO (08:07)
[2021-05-09 09:55] LABS: M R Staph aureus DNA By PCR Negative (Negative); Probe Check PASS; Specimen Processing Control PASS
[2021-05-09 11:40] LABS: Bedside Glucose 303 mg/dL (70-110)
--- NOTE | 2021-05-09 12:40 | CASEMGMT ---
Addendum entered by Puja Leon 05/09/21 16:45: Pt states she gets her own groceries, but plans to look into doing curb-side brain picker at a local grocery store. Original Note: RN MUSTAPHA CANDLE CUTTER CM to room to meet with patient for initial transition planning/care coordination assessment. HARLEEN LUCIANO introduced self and role at [facility]. Pt voices understanding and consents to assessment at this time. Pt sitting up in chair in room in no distress at this time. Pt is A/O at this time and answers all questions appropriately. Care providers, pharmacy, and demographics verified/updated at this time. PCP: Dr Madera Specialists: Dr Lozano-cardiology, Dr Nuno--pulmonology [facility]erred [facility]acy: [facility] Insurance: Angelina HERNANDEZ Prescription Benefit: Yes Living Will/HPOA: Pt does not currently have LW/HCPOA and declines info at this time. Pt made aware that she can contact SW as an out-pt and make appt in the future if he decides he would like to talk with someone about this or would like to utilize [facility] social work for advanced directive completion. Given [employer] card with information and contact number. Pt expresses understanding. LNOK: 2 sons, Raz, who lives in [place], [place] and Murtaza who lives in [place], [place]. Pt's Dtr-in-law ( to Raz) is listed as pt's primary contact per pt request. Living Arrangements: Lives alone in an apt w/5 steps to enter, w/railing on one side. Independent w/ADL's. Pt states is becoming more difficult to do home tasks, such as laundry. She states she used to have aides thru [facility] about 4 yrs ago but d/t income being too high, they stopped providing services. She would like to see if she qualifies at this time. SUZANNE, Jasmina, notified. Pt states she prepares her own meals and declines needing Meals on Wheels. Pt states she is connected w/services thru [employer] and Yasemin is the senior academic services coordinator. Transportation: Pt states drives self and states no transportation concerns at this time. She gets bus passes through [employer] at times. DME: States has the following DME: O2 thru [employer] @ 4 L/M per pt report, nebulizer, functioning glucometer w/supplies. Pt states is interested in getting a shower chair. Pt made aware these are not covered by her insurance and given several locations of where these can be purchased. Pt voices appreciation. Pt states no need for further DME at this time. HHC/SNF: Hx of [facility] and rehab @ [facility]. Hx of [facility]. Pt states she would like HH @ discharge for SN and therapy. ?Pt was provided with list of? [facility] providers including quality and resource use data and consistent with the patient's preferred geographic region, medical needs, and insurance network. ?The pt's preferred provider is? [facility]. Call placed to [facility] and referral made for SN and PT/OT. ? Pt wishes to return home and states has no concerns with going home at time of discharge. CM to follow for any increase in home oxygen needs and any further discharge planning/needs. Pt voices no further concerns/needs at this time. Advised pt to ask for CM if any further questions/concerns/needs arise. Voices understanding. PLAN: Home w/[facility], pending acceptance. CM to follow for any increase in O2 needs @ d/c. Sim STORY RN CM
--- NOTE | 2021-05-09 14:02 | CASEMGMT ---
HARLEEN LUCIANO NOTE: Call received back from [facility]il[facility] @ [facility]. They are able to accept pt. SOC will be Sunday 05/13. Pt made aware of same. Sim STORY RN, CM
[2021-05-09] MEDS: 0.9% Saline Lock 10 ML Syringe IV ×2 (14:09→21:00)
--- NOTE | 2021-05-09 14:24 | PN.HOSP_ITS ---
Subjective Subjective Breathing well. Had been short of breath for 1 week, then got worse on . Objective Data Objective Data Vital Signs: Vital Signs Temp Pulse Resp BP Pulse Ox 36.6 C 74 19 H 132/61 H 100 05/09/21 14:00 05/09/21 14:00 05/09/21 14:00 05/09/21 14:00 05/09/21 14:00 Oxygen Flow Rate (L/min) 4 Oxygen Delivery Method Nasal Cannula Weight: 97.114 kg Body Mass Index (BMI) 40.4 Intake & Output: Intake and Output for Last 24 Hours 05/07/21 05/08/21 05/09/21 23:59 23:59 23:59 Intake Total 2395 / 2395 Output Total 3950 / 3950 Balance -1555 / -1555 Lab / Micro Data Result Diagrams: 05/09/21 02:05 05/09/21 02:05 Labs: Laboratory Results - last 24 hr 05/08/21 21:35: WBC 10.6, RBC 3.75 L, Hgb 10.1 L, Hct 33.5 L, MCV 89.3, MCH 26.9 L, MCHC 30.1 L, RDW Std Deviation 43.8, RDW Coeff of Malcom 13.3, Plt Count 270, MPV 11.4, Immature Gran % (Auto) 0.700, Neut % (Auto) 77.5 H, Lymph % (Auto) 13.7 L, [place] % (Auto) 5.4, Eos % (Auto) 2.1, Baso % (Auto) 0.6, Absolute Neuts (auto) 8.3 H, Absolute Lymphs (auto) 1.46, Nucleated RBC % 0 05/08/21 21:35: Sodium 137, Potassium 3.5, Chloride 99, Carbon Dioxide 29.0, Anion Gap 9, BUN 7, Creatinine 0.92, Estim Creat Clear Calc 45.65, Est GFR (MDR D) Af Amer 77, Est GFR (MDRD) Non-Af 64, BUN/Creatinine Ratio 7.6 L, Glucose 208 H, Calcium 8.4 L, Total Bilirubin 0.20, AST 12 L, ALT 18, Alkaline Phosphatase 135 H, Troponin I High Sens 16, Total Protein 6.7, Albumin 3.1 L, Globulin 3.6, Albumin/Globulin Ratio 0.9 05/08/21 21:35: Lactic Acid 2.6 H* 05/09/21 01:10: PT 12.9, INR 1.0, APTT 27.5 05/09/21 02:05: Lactic Acid 3.4 H* 05/09/21 02:05: Sodium 135 L, Potassium 3.8, Chloride 97 L, Carbon Dioxide 29.0, Anion Gap 9, BUN 9, Creatinine 1.13 H, Estim Creat Clear Calc 37.16, Est GFR (MDRD) Af Amer 61, Est GFR (MDRD) Non-Af 51 L, BUN/Creatinine Ratio 8.0 L, Glucose 484 H*, Calcium 8.7 05/09/21 02:05: WBC 17.0 H, RBC 3.90 L, Hgb 10.7 L, Hct 34.3 L, MCV 87.9, MCH 27.4, MCHC 31.2 L, RDW Std Deviation 43.1, RDW Coeff of Malcom 13.4, Plt Count 289, MPV 11.2, Immature Gran % (Auto) 0.800, Neut % (Auto) 94.6 H, Lymph % (Auto) 2.7 L, [place] % (Auto) 1.4, Eos % (Auto) 0.1, Baso % (Auto) 0.4, Absolute Neuts (auto) 16.1 H, Absolute Lymphs (auto) 0.46 L, Nucleated RBC % 0, Differential Comment SCANNED 05/09/21 03:00: COVID-19 (GENTRY) Not Detected 05/09/21 05:42: MRSA (PCR) Cancelled 05/09/21 06:23: POC Glucose 332 H 05/09/21 08:00: MRSA (PCR) Negative 05/09/21 11:32: POC Glucose 303 H Micro: Microbiology 05/09/21 03:00 Mucosa - Nose Respiratory Panel (PCR) - Final 05/09/21 03:18 Urine, Clean Catch Legionella Antigen - Final 05/09/21 03:18 Urine, Clean Catch Streptococcus pneumoniae Antigen (M - Final 05/08/21 21:35 Nasal Secretion SARS-CoV-2 Antigen (Rapid) - Final ABG Data ABG results: ABG 05/09/21 00:36 Specimen Type ART Sample Site L Radial pH 7.31 L Bicarbonate Actual 26.8 H Total CO2 28 Base Excess 1 O2 Saturation 97 O2 % 100 ABG pCO2 52.9 H ABG pO2 97 Dima Test Positive O2 Delivery Device NRB Radiography Diagnostic Testing: Radiology Impression Chest X-Ray 05/08/21 21:15 IMPRESSION: Right lung base consolidation. Electronically Signed: Ethan Thurman MD at 22:24 EDT Tel , Service support , Chest X-Ray 05/09/21 00:34 IMPRESSION: Similar appearance of right lower lung opacification and left lateral costophrenic angle pleural thickening. Electronically Signed: Ethan Thurman MD at 1:54 EDT Tel , Service support , Chest CTA 05/09/21 03:00 IMPRESSION: Multifocal pneumonia with right lower lobe consolidations. Small bilateral pleural effusions. No demonstrated pulmonary embolism or arterial dissection. Electronically Signed: Ethan Thurman MD at 4:12 EDT Tel , Service support , Physical Exam Const alert and no apparent distress Resp normal respiratory effort and no retractions Resp Narrative: coarse breath sounds bilaterally. Cardio regular rate, regular rhythm, S1 normal heart sound and S2 normal heart sound GI normal to inspection, nondistended, normoactive bowel sounds and soft to palpation Neuro Sensorium / Orientation: awake and alert Psych affect normal Assessment & Plan Assessment/Plan (1) Bilateral pneumonia: QUALIFIERS: Pneumonia type: due to unspecified organism Lung location: lower lobe of lung Qualified Code(s): J18.9 - Pneumonia, unspecified organism (2) Respiratory failure with hypoxia and hypercapnia: QUALIFIERS: Chronicity: acute on chronic Qualified Code(s): J96.21 - Acute and chronic respiratory failure with hypoxia; J96.22 - Acute and chronic respiratory failure with hypercapnia PLAN: 1. Acute hypoxic and hypercapnic respiratory failure * Multifactorial: Due to underlying COPD with exacerbation versus pneumonia versus congestive heart failure. * COVID-19 rapid and PCR negative so Covid has been ruled out * Wean oxygen as tolerated. * Patient did have improvement after furosemide * Wean oxygen as able * Check ambulatory pulse ox prior to discharge 2. Acute exacerbation of COPD * Continue with bronchodilators and methylprednisolone 3. Acute heart failure with preserved ejection fraction * EF of 60% from July 16, 2020 * Did receive 2 doses of IV furosemide * Continue losartan * resume furosemide 4. HTN, urgency * improved * monitor * Continue losartan as well as metoprolol titrate 5. Possible pneumonia * Covid, respiratory panel, strep and Legionella antigens negative * Follow-up sputum culture * Continue with ceftriaxone and azithromycin for now but discontinue if cultures are negative. 6. Diabetes mellitus type 2 * Uncontrolled * Exacerbated by steroids * A1c on March 10, 2020 was 8 * Continue glargine, prandial as well sliding scale 7. VTE prophylaxis with enoxaparin Charges/Coding Visit Charges Inpatient E&M: 68315 Rust Hosp L3
[2021-05-09] MEDS: Acetaminophen 500 MG Tablet 1000 MG PO (15:30)
--- NOTE | 2021-05-09 15:38 | CASEMGMT ---
Social Work SW received referral that pt is requesting community resources. SW provided pt with number to [employer] and also information on [employer]. SW provided phone number for [employer] with information that they would assess pt for financial qualifications and then meet with pt to assess. Pt states she is able to call [employer] upon return home. No further questions. PHYLLIS Boothe
--- NOTE | 2021-05-09 15:39 | NURSING ---
report called to Adela CATHERINE RN
--- NOTE | 2021-05-09 16:00 | CASEMGMT ---
Addendum entered by Puja Leon 05/10/21 10:02: Pt has portable O2 tank in her room @ [facility] to go home on. Pt states she does not have transportation home. May need [facility] van transportation @ d/c, if available. Original Note: HARLEEN LUCIANO NOTE: Call placed to [facility]. Pt's current Home O2 orders are for 5 L/m continuously. Sim STORY RN CM
--- NOTE | 2021-05-09 16:20 | PCS.PANDOC ---
PANDEMIC DOCUMENTATION INITIATED: Date: 03/24/2021 Time: 190
[2021-05-09 16:25] LABS: Bedside Glucose 236 mg/dL (70-110)
[2021-05-09] MEDS: Furosemide 40 MG/4 ML Vial IV (17:13)
[2021-05-09] MEDS: Atorvastatin Calcium 80 MG Tablet PO (21:00)
[2021-05-09] MEDS: RisperiDONE 1 MG Tablet PO (21:02)
[2021-05-09] MEDS: Citalopram 40 MG TABLET PO (21:02)
[2021-05-09] MEDS: Docusate Sodium 100 MG Capsule PO (21:03)
[2021-05-09 22:25] LABS: Bedside Glucose 346 mg/dL (70-110)
[2021-05-10] VITALS (10 sets, daily range): BP systolic 112–139; BP diastolic 55–65; PULSE 64–85; RESP 16–20; TEMP 36.4–36.7; O2SAT 96–100
[2021-05-10 05:37] LABS: Absolute Lymphocyte Count 0.88 X10^3/uL (0.83-4.51); Absolute Neutrophil Count 14.7 X10^3/uL (2.0-7.7); Basophil# 0.03 X10^3/uL; Basophil% 0.2 % (0-1); Hematocrit 33.1 % (37-47); Hemoglobin 10.2 g/dL (12.0-15.0); Lymphocyte # 0.88 X10^3/ul (0.83-4.51); Lymphocyte % 5.4 % (19-41); Mean Corp Hgb Conc 30.8 g/dL (32-36); Mean Corpuscular Volume 87.6 fL (81-99); Mean Platelet Vol. 11.7 fl (6.2-12.0); Monocyte# 0.63 X10^3/uL; Monocyte% 3.8 % (0-10); NRBC Flagged by Analyzer 0 % (0-5); Neutrophil # 14.71 X10^3/uL (2.7-7.7); Neutrophil % 89.7 % (47-70); Platelet Count 316 K/mm3 (150-450); RBC Distribution Width CV 13.8 % (11.6-14.6); RBC Distribution Width SD 44.1 fl (35.1-43.9); Red Blood Count 3.78 M/mm3 (4.2-5.4); White Blood Count 16.4 K/mm3 (4.4-11.0)
[2021-05-10 06:07] LABS: Anion Gap 9 (5-15); BUN 22 mg/dL (7-18); BUN/Creat Ratio 19.1 RATIO (10-20); Calcium,Total 9.4 mg/dL (8.5-10.1); Chloride 95 mmol/L (98-107); Creatinine, Serum 1.15 mg/dL (0.55-1.02); EST Glomerular Filtration Rate 50 mL/min (>60); Est Glom Filt Rate - Afr Amer 60 mL/min (>60); Estimated Creatinine Clearance 36.52 ml/min; Glucose 325 mg/dL (74-106); Potassium 3.8 mmol/L (3.5-5.1); Sodium Level 135 mmol/L (136-145)
[2021-05-10] MEDS: 0.9% Saline Lock 10 ML Syringe IV (06:24)
[2021-05-10] MEDS: Ipratropium/Albuterol Sulfate 3 ML AMPUL.NEB INHALATION ×3 (07:12→13:49)
--- NOTE | 2021-05-10 08:15 | PN.CC_ITS ---
Assessment & Plan Assessment/Plan (1) Respiratory failure with hypoxia and hypercapnia: QUALIFIERS: Chronicity: acute on chronic Qualified Code(s): J96.21 - Acute and chronic respiratory failure with hypoxia; J96.22 - Acute and chronic respiratory failure with hypercapnia (2) MARK (obstructive sleep apnea): (3) Asthma with COPD: (4) Chronic respiratory failure: QUALIFIERS: Respiratory failure complication: hypoxia Qualified Code(s): J96.11 - Chronic respiratory failure with hypoxia PLAN: RECOMMENDATIONS: 1. Continue antibiotics. Consider discontinuation of prednisone 2. Aggressive control of blood pressure 3. Wean oxygen as tolerated 4. Await results of culture 5. Potential discharge later today. Obtain walking oximetry 6. Patient at baseline oxygen requirements. IMPRESSIONS: 1. Acute on chronic combined respiratory failure Exact etiology is unclear at this time. Patient did have rapid recovery following Lasix making congestive heart failure or flash pulmonary edema a significant concern. Patient does have significant underlying obstructive lung disease, so a COPD exacerbation would also be a possibility, but unlikely. L ikely okay to discontinue steroid therapy and reinitiate baseline inhalers. Recommend continuing antibiotics until cultures are resulted. Okay to transition to p.o. antibiotics and complete 5 days from my perspective. Patient does appear to be improved from a respiratory standpoint and can likely discharge with routine follow-up. Consider cardiology for optimization of fluid status as an outpatient. 2. Hypertensive emergency/anxiety disorder Patient with significant decompensation when systolics were greater than 200. Unclear if this is related to anxiety versus having anxiety as a result of her pulmonary edema. Aggressively control blood pressure. Defer to primary service if cardiology needs to be involved. 3. 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 We will watch H&H's this patient does have some anemia. Patient would likely benefit from nocturnal CPAP, but has not tolerated this in the past. Subjective Subjective Patient did well overnight. No acute issues were reported. Patient states she feels that she is back to her baseline at this time. Patient has not not reporting any chest pain, abdominal pain, nausea or vomiting. Objective Data Objective Data Vital Signs: Vital Signs Temp Pulse Resp BP Pulse Ox 36.6 C 75 20 H 139/65 H 97 05/10/21 03:55 05/10/21 06:59 05/10/21 03:55 05/10/21 03:55 05/10/21 03:55 Oxygen Flow Rate (L/min) 4 Oxygen Delivery Method Nasal Cannula Weight: 97.5 kg Body Mass Index (BMI) 40.4 Intake & Output: Intake and Output for Last 24 Hours 05/08/21 05/09/21 05/10/21 23:59 23:59 23:59 Intake Total 3060 / 3180 180 / 180 Output Total 3950 / 3950 Balance -890 / -770 180 / 180 Lab / Micro Data Result Diagrams: 05/10/21 05:00 05/10/21 05:00 Labs: Laboratory Results - last 24 hr 05/09/21 03:00: COVID-19 ([facility]TRY) Not Detected 05/09/21 08:00: MRSA (PCR) Negative 05/09/21 11:32: POC Glucose 303 H 05/09/21 16:18: POC Glucose 236 H 05/09/21 20:55: POC Glucose 346 H 05/10/21 05:00: WBC 16.4 H, RBC 3.78 L, Hgb 10.2 L, Hct 33.1 L, MCV 87.6, MCH 27.0, MCHC 30.8 L, RDW Std Deviation 44.1 H, RDW Coeff of Malcom 13.8, Plt Count 316, MPV 11.7, Immature Gran % (Auto) 0.900, Neut % (Auto) 89.7 H, Lymph % (Auto) 5.4 L, Benzie % (Auto) 3.8, Eos % (Auto) 0.0, Baso % (Auto) 0.2, Absolute Neuts (auto) 14.7 H, Absolute Lymphs (auto) 0.88, Nucleated RBC % 0 05/10/21 05:00: Sodium 135 L, Potassium 3.8, Chloride 95 L, Carbon Dioxide 31.0, Anion Gap 9, BUN 22 H, Creatinine 1.15 H, Estim Creat Clear Calc 36.52, Est GFR (MDRD) Af Amer 60, Est GFR (MDRD) Non-Af 50 L, BUN/Creatinine Ratio 19.1, Glucose 325 H, Calcium 9.4 Micro: Microbiology 05/09/21 08:20 Sputum, Expectorated/Coughed Gram Stain - Final 05/09/21 03:00 Mucosa - Nose Respiratory Panel (PCR) - Final 05/09/21 03:18 Urine, Clean Catch Legionella Antigen - Final 05/09/21 03:18 Urine, Clean Catch Streptococcus pneumoniae Antigen (M - Final 05/08/21 21:35 Nasal Secretion SARS-CoV-2 Antigen (Rapid) - Final Physical Exam Const alert, oriented x3 and no apparent distress General Appearance: cooperative and well developed Nutritional Appearance: morbidly obese HEENT normocephalic, head/scalp atraumatic and moist oral mucous membranes Eyes PERRL and EOMs intact bilaterally Neck full ROM and no lymphadenopathy Chest inspection of chest normal Resp Auscultation: diminished lung sounds; Negative for rales, rhonchi or wheezes Percussion: Negative for dullness Cardio regular rate, regular rhythm, S1 normal heart sound, S2 normal heart sound, no murmurs, no rub and no gallops GI normal to inspection, nondistended, normoactive bowel sounds no CVA tenderness Extremity General Extremity: clubbing and edema bilateral lower extremity; Negative for cyanosis Skin no rashes or lesions noted Neuro oriented x3, CN's II-XII intact bilaterally, moves all extremities and no focal motor deficits Psych cooperative and affect normal Charges/Coding Visit Charges Inpatient E&M: 70357 Subs Hosp L2
[2021-05-10 08:16] LABS: Bedside Glucose 302 mg/dL (70-110)
[2021-05-10] MEDS: Insulin Lispro 100 UNIT/ML INSULN.PEN 15 UNIT SC ×3 (09:09→16:03)
[2021-05-10] MEDS: Enoxaparin 40 MG/0.4 ML Syringe SC (09:09)
[2021-05-10] MEDS: Furosemide 40 MG/4 ML Vial IV (09:10)
[2021-05-10] MEDS: Insulin Lispro 100 UNIT/ML INSULN.PEN SC ×3 (09:10→16:04)
[2021-05-10] MEDS: Metoprolol Tartrate 25 MG Tablet 12.5 MG PO (09:11)
[2021-05-10] MEDS: Pantoprazole Sodium 40 MG Tablet PO (09:11)
[2021-05-10] MEDS: Loratadine 10 MG Tablet PO (09:12)
[2021-05-10] MEDS: Clopidogrel Bisulfate 75 MG Tablet PO (09:12)
[2021-05-10] MEDS: Losartan Potassium 25 MG Tablet PO (09:12)
[2021-05-10] MEDS: Nystatin Powder 15gm Bottle 1 APPLIC TOPICAL (09:13)
[2021-05-10] MEDS: Ceftriaxone 1 GM/50 ML BAG IV (09:18)
--- NOTE | 2021-05-10 11:29 | DCINST_ITS ---
Discharge Instructions Diet Discharge Diet: No restrictions Activity Discharge Activity: Return to Normal Activity Weight Bearing Status: Weight bearing as tolerated Dressing / Incision Call your doctor if you observe: Fever of 101 or Higher, Numbness or Tingling, Shortness of breath, Dizziness, Chest pain, Increased palpitations (irregular heartbeat) and Calf discomfort Follow Up Care Please Follow Up With: Primary care provider When: Within the next two weeks. Test Results: Test results from this visit will be discussed in further detail at your follow-up appointment, if applicable. Discharge Plan Admission Admit Date/Time: 05/08/21 22:55 Primary Reason for Your Visit: Shortness of breath Attending Provider: Omi Evans Primary Care Provider: Billy Madera Consulting Providers: Haroon Nuno Discharge Orders/Prescriptions Prescriptions: New furosemide [Lasix] 20 mg tablet 20 mg PO DAILY Qty: 30 RF: 0 cefdinir 300 mg capsule 300 mg PO BID Qty: 10 RF: 0 Continued docusate sodium [Colace] 100 mg capsule 100 mg PO BID PRN (Reason: constipation) Qty: 60 RF: 3 nitroglycerin 0.4 mg tablet, sublingual 0.4 mg SUBLINGUAL Q5-15M Qty: 25 RF: 3 (DME) pen needle, diabetic 32 gauge x 5/32 needle See Rx Instructions ea .ROUTE .MEDSUPPLY Qty: 50 RF: 0 (DME) Handicap Placard See Rx Instructions .ROUTE .MEDSUPPLY Qty: 1 RF: 0 aspirin [Adult Low Dose Aspirin] 81 mg tablet,delayed release (DR/EC) 81 mg PO DAILY RF: 0 citalopram 40 mg tablet 40 mg PO QHS RF: 0 loratadine 10 mg tablet 10 mg PO DAILY Qty: 90 RF: 3 fluticasone propionate [Flonase Allergy Relief] 50 mcg/actuation spray,suspension 1 spray intranasal DAILY Qty: 16 RF: 4 Basaglar KwikPen U-100 Insulin 100 unit/mL (3 mL) insulin pen 36 unit subcut DAILY 90 Days Qty: 32.4 RF: 3 clobetasol 0.05 % cream 1 applic topical BID 14 Days Qty: 60 RF: 2 acetaminophen 500 MG tablet 1,000 mg PO TID PRN (Reason: Pain Or Fever) Qty: 1 RF: 0 metformin 500 mg tablet extended release 24 hr 1,000 mg PO QPM Qty: 180 RF: 3 ipratropium-albuterol 0.5 mg-3 mg(2.5 mg base)/3 mL solution for nebulization 3 ml INHALATION Q4H PRN PRN (Reason: SOB &/OR WHEEZING) Qty: 180 RF: 6 losartan 25 mg tablet 25 mg PO DAILY Qty: 90 RF: 3 clopidogrel 75 mg tablet 75 mg PO DAILY Qty: 90 RF: 3 (DME) Accu-Chek Aundrea Plus test strp Strip See Rx Instructions .ROUTE .MEDSUPPLY Qty: 100 RF: 8 atorvastatin 80 mg tablet 80 mg PO QHS Qty: 90 RF: 3 pantoprazole 40 mg tablet,delayed release (DR/EC) 40 mg PO DAILY Qty: 90 RF: 1 insulin lispro [Humalog KwikPen Insulin] 100 unit/mL insulin pen 15 unit SC TID Qty: 54 RF: 3 (DME) FreeStyle Emily 2 [place] Misc See Rx Instructions .ROUTE .MEDSUPPLY Qty: 1 RF: 0 (DME) FreeStyle Emily 2 Sensor Kit See Rx Instructions .ROUTE .MEDSUPPLY Qty: 2 RF: 12 albuterol sulfate 90 mcg/actuation HFA aerosol inhaler 2 puff INHALATION Q6H PRN (Reason: shortness of breath or wheezing) Qty: 18 RF: 3 calcipotriene 0.005 % cream 1 applic topical DAILY Qty: 120 RF: 0 alprazolam 0.25 mg tablet 0.25 mg PO DAILY PRN (Reason: Anxiety) Qty: 30 RF: 0 risperidone 1 mg tablet 1 mg PO QHS Qty: 30 RF: 1 metoprolol tartrate 25 mg tablet 12.5 mg PO BID Qty: 90 RF: 3 Referrals / Follow Up: Billy Madera MD [Primary Care Provider] - Within 2 Weeks Haroon Nuno MD [STAFF PHYSICIAN] - Within 2 Weeks Disposition Disposition (needs filled in before D/C Order can be placed): Home, Self Care
[2021-05-10 11:50] LABS: Bedside Glucose 436 mg/dL (70-110)
--- NOTE | 2021-05-10 15:18 | PCM.DC.SUM ---
Documented by User: Mike GIL 05/10/21 15:32 Providers Date of Admission: 05/08/21 Primary Care Physician: Dr. Billy Madera MD Consultations 05/09/21 01:48 Consult: [place] / Pulmonary Medicine Routine Consulting Provider: Haroon Nuno Reason for Consult: Acute respiratory failure EMERGENT Consult: No MD Notified: Yes Date Notified: 05/09/21 Time Notified: 00:48 Method of Notification: Text Reason For Visit: ACUTE EXACERBATION OF COPD Diagnosis Discharge Diagnosis (1) Respiratory failure with hypoxia and hypercapnia: Status: Acute Code(s): J96.91 - Respiratory failure, unspecified with hypoxia; J96.92 - Respiratory failure, unspecified with hypercapnia Qualifiers: Chronicity: acute on chronic Qualified Code(s): J96.21 - Acute and chronic respiratory failure with hypoxia; J96.22 - Acute and chronic respiratory failure with hypercapnia (2) MARK (obstructive sleep apnea): Status: Chronic Code(s): G47.33 - Obstructive sleep apnea (adult) (pediatric) (3) Asthma with COPD: Status: Chronic Code(s): J44.9 - Chronic obstructive pulmonary disease, unspecified (4) Chronic respiratory failure: Status: Chronic Code(s): J96.10 - Chronic respiratory failure, unspecified whether with hypoxia or hypercapnia Qualifiers: Respiratory failure complication: hypoxia Qualified Code(s): J96.11 - Chronic respiratory failure with hypoxia Medications at Discharge Home Medications acetaminophen 1,000 mg PO TID PRN #1 tab 03/16/20 metformin 500 mg tablet,extended release 24 hr 1,000 mg PO QPM #180 tab 05/09/20 ipratropium 0.5 mg-albuterol 3 mg (2.5 mg base)/3 mL nebulization soln 3 ml INHALATION Q4H PRN PRN #180 ml 07/11/20 losartan 25 mg tablet 25 mg PO DAILY #90 tab 08/08/20 nitroglycerin 0.4 mg sublingual tablet 0.4 mg SUBLINGUAL Q5-15M #25 tab 08/13/20 docusate sodium 100 mg capsule 100 mg PO BID PRN #60 cap 09/26/20 clopidogrel 75 mg tablet 75 mg PO DAILY #90 tab 10/08/20 blood sugar diagnostic #100 each 11/05/20 pen needle, diabetic 32 gauge x 5/32 #50 ea 12/06/20 atorvastatin 80 mg tablet 80 mg PO QHS #90 tab 12/09/20 Handicap Placard #1 ea 12/12/20 aspirin 81 mg tablet,delayed release 81 mg PO DAILY 12/27/20 citalopram 40 mg tablet 40 mg PO QHS tab 12/27/20 loratadine 10 mg tablet 10 mg PO DAILY #90 tab 12/30/20 pantoprazole 40 mg tablet,delayed release 40 mg PO DAILY #90 tab 01/07/21 insulin lispro 100 unit/mL subcutaneous pen 15 unit SC TID #54 ml 01/23/21 flash glucose scanning reader #1 ea 01/31/21 flash glucose sensor #2 ea 01/31/21 albuterol sulfate 90 mcg/actuation aerosol inhaler 2 puff INHALATION Q6H PRN #18 g 02/06/21 calcipotriene 0.005 % topical cream 1 applic TOPICAL DAILY #120 g 03/07/21 clobetasol 0.05 % topical cream 1 applic TOPICAL BID 14 Days #60 g 03/10/21 insulin glargine 100 unit/mL (3 mL) subcutaneous pen 36 unit SUBCUT DAILY 90 Days #32.4 ml 03/10/21 alprazolam 0.25 mg tablet 0.25 mg PO DAILY PRN #30 tab 04/09/21 risperidone 1 mg tablet 1 mg PO QHS #30 tab 04/09/21 metoprolol tartrate 25 mg tablet 12.5 mg PO BID #90 tab 04/25/21 fluticasone propionate 50 mcg/actuation nasal spray,suspension 1 spray INTRANASAL DAILY #16 g 04/29/21 cefdinir 300 mg PO BID #10 cap 05/10/21 furosemide [Lasix] 20 mg PO DAILY #30 tab 05/10/21 Hospital Course Summary of Care Provided Minutes Spent on Discharge: 35 Hospital Course: Disposition: Patient to be discharged home. 1) acute hypoxic and hypercapnic respiratory failure of mixed etiology Resolved, patient is currently satting 100% on 4 L via nasal cannula, which is her baseline. Blood cultures did not demonstrate any growth. Viral respiratory panel negative. Strep pneumo and Legionella urinary antigens negative. Rapid Covid negative. CTA did not demonstrate any evidence of PE or arterial dissection, but did show bilateral pleural effusions with right lobar consolidation. Patient breathing did improve with Lasix. Plan; initiate Lasix 20 g p.o. daily, initiate cefdinir 30 mg p.o. twice daily for 5 days, follow-up with primary care provider and pulmonology within the next 2 weeks. 2) acute on chronic exacerbation of COPD Continue bronchodilators, prednisone not initiated on discharge on recommendation from pulmonology. Follow-up with pulmonology as an outpatient as above. 3) Acute on chronic CHF exacerbation with preserved EF. Echocardiogram from 07/28 demonstrated normal LV systolic function, an estimated EF of 60%, and RVSP of 37 mmHg and indeterminate diastolic dysfunction. Patient responsive to Lasix as above. Plan; initiate Lasix as above, continue losartan and metoprolol. 4) HTN, urgency Stable, Continue losartan as well as metoprolol titrate 5) Possible pneumonia As above. 6) Diabetes mellitus type 2 Uncontrolled, hemoglobin A1c from March was 8.0. Likely exacerbated by steroids, continue home diabetic regimen. Patient seen by Mike Carmen PA-C, under the supervision of Dr. Evans. Physical Exam Narrative Patient is a 70-year-old female comfortably resting in bed, alert and orient x3. Patient reports resolution of her shortness of breath from admission and denies development of any new symptoms overnight. Denies chest pain, shortness of breath, palpitations, hemoptysis, sputum production, fever, chills, N/V/D. Const alert, oriented x3 and no apparent distress HEENT normocephalic, head/scalp atraumatic and hearing grossly normal bilaterally Eyes PERRL, EOMs intact bilaterally and conjunctivae normal Neck no lymphadenopathy, supple and no JVD Resp normal respiratory effort, no retractions and no use of accessory muscles Resp Narrative: Currently satting 96% on 4 L via nasal cannula. Auscultation: diminished lung sounds Cardio regular rate, regular rhythm, no murmurs and no JVD GI normal to inspection, nondistended, normoactive bowel sounds, soft to palpation and non-tender Extremity normal to inspection, full ROM and no clubbing, cyanosis or edema Skin no rashes or lesions noted, no wounds and skin turgor normal Neuro CN's II-XII intact bilaterally Psych affect normal Weight / BMI Weight Weight: 214 lb 15.211 oz Body Mass Index (BMI) 40.4 ABG / Lab / Microbiology Data Result Diagrams: 05/10/21 05:00 05/10/21 05:00 Laboratory: Laboratory Results - last 24 hr 05/09/21 16:18: POC Glucose 236 H 05/09/21 20:55: POC Glucose 346 H 05/10/21 05:00: WBC 16.4 H, RBC 3.78 L, Hgb 10.2 L, Hct 33.1 L, MCV 87.6, MCH 27.0, MCHC 30.8 L, RDW Std Deviation 44.1 H, RDW Coeff of Malcom 13.8, Plt Count 316, MPV 11.7, Immature Gran % (Auto) 0.900, Neut % (Auto) 89.7 H, Lymph % (Auto) 5.4 L, [place] % (Auto) 3.8, Eos % (Auto) 0.0, Baso % (Auto) 0.2, Absolute Neuts (auto) 14.7 H, Absolute Lymphs (auto) 0.88, Nucleated RBC % 0 05/10/21 05:00: Sodium 135 L, Potassium 3.8, Chloride 95 L, Carbon Dioxide 31.0, Anion Gap 9, BUN 22 H, Creatinine 1.15 H, Estim Creat Clear Calc 36.52, Est GFR (MDRD) Af Amer 60, Est GFR (MDRD) Non-Af 50 L, BUN/Creatinine Ratio 19.1, Glucose 325 H, Calcium 9.4 05/10/21 08:12: POC Glucose 302 H 05/10/21 11:33: POC Glucose 436 H Microbiology: Microbiology 05/09/21 08:20 Sputum, Expectorated/Coughed Gram Stain - Final 05/09/21 08:20 Sputum, Expectorated/Coughed Respiratory Culture - Preliminary Appears to be normal respiratory caleb. Further studies to follow. 05/09/21 03:00 Mucosa - Nose Respiratory Panel (PCR) - Final 05/09/21 03:18 Urine, Clean Catch Legionella Antigen - Final 05/09/21 03:18 Urine, Clean Catch Streptococcus pneumoniae Antigen (M - Final 05/08/21 21:35 Nasal Secretion SARS-CoV-2 Antigen (Rapid) - Final D/C Instructions Discharge Diet: No restrictions Weight Bearing Status: Weight bearing as tolerated Call your doctor if you observe: Fever of 101 or Higher, Numbness or Tingling, Shortness of breath, Dizziness, Chest pain, Increased palpitations (irregular heartbeat) and Calf discomfort Please Follow Up With: Primary care provider When: Within the next two weeks. Meaningful Use Info Meaningful Use Diagnoses (Choose all that apply): None applicable Discharge Plan Admission Admit Date/Time: 05/08/21 22:55 Primary Reason for Your Visit: Shortness of breath Attending Provider: Omi Evans Primary Care Provider: Billy Madera Consulting Providers: Haroon Nuno Discharge Orders/Prescriptions Prescriptions: New furosemide [Lasix] 20 mg tablet 20 mg PO DAILY Qty: 30 RF: 0 cefdinir 300 mg capsule 300 mg PO BID Qty: 10 RF: 0 Continued docusate sodium [Colace] 100 mg capsule 100 mg PO BID PRN (Reason: constipation) Qty: 60 RF: 3 nitroglycerin 0.4 mg tablet, sublingual 0.4 mg SUBLINGUAL Q5-15M Qty: 25 RF: 3 (DME) pen needle, diabetic 32 gauge x 5/32 needle See Rx Instructions ea .ROUTE .MEDSUPPLY Qty: 50 RF: 0 (DME) Handicap Placard See Rx Instructions .ROUTE .MEDSUPPLY Qty: 1 RF: 0 aspirin [Adult Low Dose Aspirin] 81 mg tablet,delayed release (DR/EC) 81 mg PO DAILY RF: 0 citalopram 40 mg tablet 40 mg PO QHS RF: 0 loratadine 10 mg tablet 10 mg PO DAILY Qty: 90 RF: 3 fluticasone propionate [Flonase Allergy Relief] 50 mcg/actuation spray,suspension 1 spray intranasal DAILY Qty: 16 RF: 4 Basaglar KwikPen U-100 Insulin 100 unit/mL (3 mL) insulin pen 36 unit subcut DAILY 90 Days Qty: 32.4 RF: 3 clobetasol 0.05 % cream 1 applic topical BID 14 Days Qty: 60 RF: 2 acetaminophen 500 MG tablet 1,000 mg PO TID PRN (Reason: Pain Or Fever) Qty: 1 RF: 0 metformin 500 mg tablet extended release 24 hr 1,000 mg PO QPM Qty: 180 RF: 3 ipratropium-albuterol 0.5 mg-3 mg(2.5 mg base)/3 mL solution for nebulization 3 ml INHALATION Q4H PRN PRN (Reason: SOB &/OR WHEEZING) Qty: 180 RF: 6 losartan 25 mg tablet 25 mg PO DAILY Qty: 90 RF: 3 clopidogrel 75 mg tablet 75 mg PO DAILY Qty: 90 RF: 3 (DME) Accu-Chek Aundrea Plus test strp Strip See Rx Instructions .ROUTE .MEDSUPPLY Qty: 100 RF: 8 atorvastatin 80 mg tablet 80 mg PO QHS Qty: 90 RF: 3 pantoprazole 40 mg tablet,delayed release (DR/EC) 40 mg PO DAILY Qty: 90 RF: 1 insulin lispro [Humalog KwikPen Insulin] 100 unit/mL insulin pen 15 unit SC TID Qty: 54 RF: 3 (DME) FreeStyle Emily 2 Crockett Misc See Rx Instructions .ROUTE .MEDSUPPLY Qty: 1 RF: 0 (DME) FreeStyle Emily 2 Sensor Kit See Rx Instructions .ROUTE .MEDSUPPLY Qty: 2 RF: 12 albuterol sulfate 90 mcg/actuation HFA aerosol inhaler 2 puff INHALATION Q6H PRN (Reason: shortness of breath or wheezing) Qty: 18 RF: 3 calcipotriene 0.005 % cream 1 applic topical DAILY Qty: 120 RF: 0 alprazolam 0.25 mg tablet 0.25 mg PO DAILY PRN (Reason: Anxiety) Qty: 30 RF: 0 risperidone 1 mg tablet 1 mg PO QHS Qty: 30 RF: 1 metoprolol tartrate 25 mg tablet 12.5 mg PO BID Qty: 90 RF: 3 Referrals / Follow Up: Haroon Nuno MD [STAFF PHYSICIAN] - Within 2 Weeks Billy Madera MD [Primary Care Provider] - Within 2 Weeks Disposition Disposition (needs filled in before D/C Order can be placed): Home, Self Care Documented by User: Dr. Omi Evans DO 05/10/21 15:40 Providers Date of Admission: 05/08/21 Reason For Visit: ACUTE EXACERBATION OF COPD Medications at Discharge Home Medications acetaminophen 1,000 mg PO TID PRN #1 tab 03/16/20 metformin 500 mg tablet,extended release 24 hr 1,000 mg PO QPM #180 tab 05/09/20 ipratropium 0.5 mg-albuterol 3 mg (2.5 mg base)/3 mL nebulization soln 3 ml INHALATION Q4H PRN PRN #180 ml 07/11/20 losartan 25 mg tablet 25 mg PO DAILY #90 tab 08/08/20 nitroglycerin 0.4 mg sublingual tablet 0.4 mg SUBLINGUAL Q5-15M #25 tab 08/13/20 docusate sodium 100 mg capsule 100 mg PO BID PRN #60 cap 09/26/20 clopidogrel 75 mg tablet 75 mg PO DAILY #90 tab 10/08/20 blood sugar diagnostic #100 each 11/05/20 pen needle, diabetic 32 gauge x 5/32 #50 ea 12/06/20 atorvastatin 80 mg tablet 80 mg PO QHS #90 tab 12/09/20 Handicap Placard #1 ea 12/12/20 aspirin 81 mg tablet,delayed release 81 mg PO DAILY 12/27/20 citalopram 40 mg tablet 40 mg PO QHS tab 12/27/20 loratadine 10 mg tablet 10 mg PO DAILY #90 tab 12/30/20 pantoprazole 40 mg tablet,delayed release 40 mg PO DAILY #90 tab 01/07/21 insulin lispro 100 unit/mL subcutaneous pen 15 unit SC TID #54 ml 01/23/21 flash glucose scanning reader #1 ea 01/31/21 flash glucose sensor #2 ea 01/31/21 albuterol sulfate 90 mcg/actuation aerosol inhaler 2 puff INHALATION Q6H PRN #18 g 02/06/21 calcipotriene 0.005 % topical cream 1 applic TOPICAL DAILY #120 g 03/07/21 clobetasol 0.05 % topical cream 1 applic TOPICAL BID 14 Days #60 g 03/10/21 insulin glargine 100 unit/mL (3 mL) subcutaneous pen 36 unit SUBCUT DAILY 90 Days #32.4 ml 03/10/21 alprazolam 0.25 mg tablet 0.25 mg PO DAILY PRN #30 tab 04/09/21 risperidone 1 mg tablet 1 mg PO QHS #30 tab 04/09/21 metoprolol tartrate 25 mg tablet 12.5 mg PO BID #90 tab 04/25/21 fluticasone propionate 50 mcg/actuation nasal spray,suspension 1 spray INTRANASAL DAILY #16 g 04/29/21 cefdinir 300 mg PO BID #10 cap 05/10/21 furosemide [Lasix] 20 mg PO DAILY #30 tab 05/10/21 Hospital Course Summary of Care Provided Minutes Spent on Discharge: 35 Hospital Course: Patient seen and examined independently. Data and vitals reviewed. I agree with the above note by the physician assistant professor of communication. This 70-year-old female presents with shortness of breath. Patient was negative for COVID-19. Chest x-ray showed infiltrate but also some pulmonary vascular congestion. Patient was treated with antibiotics as well as diuretics and is currently improved. Patient is on 4 L oxygen at home and will be discharged charged with such. Patient be discharged with furosemide as well as cefdinir. Patient discharged home in stable condition. Physical Exam Const alert Resp normal respiratory effort and no retractions Cardio regular rate and regular rhythm GI normal to inspection, nondistended, normoactive bowel sounds, soft to palpation, non-tender and non-distended ABG / Lab / Microbiology Data Result Diagrams: 05/10/21 05:00 05/10/21 05:00 Discharge Plan Admission Admit Date/Time: 05/08/21 22:55 Primary Reason for Your Visit: Shortness of breath Attending Provider: Omi Evans Primary Care Provider: Billy Madera Consulting Providers: Haroon Nuno Discharge Orders/Prescriptions Prescriptions: New furosemide [Lasix] 20 mg tablet 20 mg PO DAILY Qty: 30 RF: 0 cefdinir 300 mg capsule 300 mg PO BID Qty: 10 RF: 0 Continued docusate sodium [Colace] 100 mg capsule 100 mg PO BID PRN (Reason: constipation) Qty: 60 RF: 3 nitroglycerin 0.4 mg tablet, sublingual 0.4 mg SUBLINGUAL Q5-15M Qty: 25 RF: 3 (DME) pen needle, diabetic 32 gauge x 5/32 needle See Rx Instructions ea .ROUTE .MEDSUPPLY Qty: 50 RF: 0 (DME) Handicap Placard See Rx Instructions .ROUTE .MEDSUPPLY Qty: 1 RF: 0 aspirin [Adult Low Dose Aspirin] 81 mg tablet,delayed release (DR/EC) 81 mg PO DAILY RF: 0 citalopram 40 mg tablet 40 mg PO QHS RF: 0 loratadine 10 mg tablet 10 mg PO DAILY Qty: 90 RF: 3 fluticasone propionate [Flonase Allergy Relief] 50 mcg/actuation spray,suspension 1 spray intranasal DAILY Qty: 16 RF: 4 Basaglar KwikPen U-100 Insulin 100 unit/mL (3 mL) insulin pen 36 unit subcut DAILY 90 Days Qty: 32.4 RF: 3 clobetasol 0.05 % cream 1 applic topical BID 14 Days Qty: 60 RF: 2 acetaminophen 500 MG tablet 1,000 mg PO TID PRN (Reason: Pain Or Fever) Qty: 1 RF: 0 metformin 500 mg tablet extended release 24 hr 1,000 mg PO QPM Qty: 180 RF: 3 ipratropium-albuterol 0.5 mg-3 mg(2.5 mg base)/3 mL solution for nebulization 3 ml INHALATION Q4H PRN PRN (Reason: SOB &/OR WHEEZING) Qty: 180 RF: 6 losartan 25 mg tablet 25 mg PO DAILY Qty: 90 RF: 3 clopidogrel 75 mg tablet 75 mg PO DAILY Qty: 90 RF: 3 (DME) Accu-Chek Aundrea Plus test strp Strip See Rx Instructions .ROUTE .MEDSUPPLY Qty: 100 RF: 8 atorvastatin 80 mg tablet 80 mg PO QHS Qty: 90 RF: 3 pantoprazole 40 mg tablet,delayed release (DR/EC) 40 mg PO DAILY Qty: 90 RF: 1 insulin lispro [Humalog KwikPen Insulin] 100 unit/mL insulin pen 15 unit SC TID Qty: 54 RF: 3 (DME) FreeStyle Emily 2 Crockett Misc See Rx Instructions .ROUTE .MEDSUPPLY Qty: 1 RF: 0 (DME) FreeStyle Emily 2 Sensor Kit See Rx Instructions .ROUTE .MEDSUPPLY Qty: 2 RF: 12 albuterol sulfate 90 mcg/actuation HFA aerosol inhaler 2 puff INHALATION Q6H PRN (Reason: shortness of breath or wheezing) Qty: 18 RF: 3 calcipotriene 0.005 % cream 1 applic topical DAILY Qty: 120 RF: 0 alprazolam 0.25 mg tablet 0.25 mg PO DAILY PRN (Reason: Anxiety) Qty: 30 RF: 0 risperidone 1 mg tablet 1 mg PO QHS Qty: 30 RF: 1 metoprolol tartrate 25 mg tablet 12.5 mg PO BID Qty: 90 RF: 3 Referrals / Follow Up: Haroon Nuno MD [STAFF PHYSICIAN] - Within 2 Weeks Billy Madera MD [Primary Care Provider] - Within 2 Weeks Disposition Disposition (needs filled in before D/C Order can be placed): Home, Self Care Charges/Coding Visit Charges Inpatient E&M: 51336 Disch Hosp
[2021-05-10] MEDS: Docusate Sodium 100 MG Capsule PO (15:30)
[2021-05-10 16:31] LABS: Bedside Glucose 369 mg/dL (70-110)
--- NOTE | 2021-05-12 16:04 | CASEMGMT ---
KATELYNN DC F/u Call DC Date: 05/10/21 DC Diagnosis: Respiratory failure with hypoxia and hypercapnia DC Disposition: Home Lace/Strata: 07/11 Called patient cell phone-no answer. Called patient home phone, answered and this field underwriter introduced self and role. Patient states that she is doing ok and still feels weak. Nurse was out today. Confirmed picked up her DC medications. Denies any questions, issues, or concerns with Medications, ACI, or F/u. S. KATELYNN Baig
== END 2021-05-10 17:46 | disposition home or self-care (01) | DRG 190 ==
LOC: ED 22:51 → ICU 05-09 04:20 → PCU 05-10 11:29 → ICU 12-04 15:19
PROVIDERS: Admitting Provider Hospitalist; Emergency Provider Emergency Medicine; PCP Internal Medicine
DX: J44.1 Chronic obstructive pulmonary disease with (acute) exacerbation (principal); M33.13 Other dermatomyositis without myopathy; J44.0 Chronic obstructive pulmonary disease with (acute) lower respiratory infection; I11.0 Hypertensive heart disease with heart failure; I50.9 Heart failure, unspecified; E11.65 Type 2 diabetes mellitus with hyperglycemia; J96.21 Acute and chronic respiratory failure with hypoxia; J96.22 Acute and chronic respiratory failure with hypercapnia; Z68.41 Body mass index [BMI] 40.0-44.9, adult; E66.01 Morbid (severe) obesity due to excess calories; Z79.4 Long term (current) use of insulin; J18.9 Pneumonia, unspecified organism; I16.1 Hypertensive emergency; R04.2 Hemoptysis; E78.5 Hyperlipidemia, unspecified; F32.A Depression, unspecified; F41.9 Anxiety disorder, unspecified; G47.33 Obstructive sleep apnea (adult) (pediatric); H54.7 Unspecified visual loss; I25.10 Atherosclerotic heart disease of native coronary artery without angina pectoris; L40.9 Psoriasis, unspecified; K22.70 Barrett's esophagus without dysplasia; T38.0X5A Adverse effect of glucocorticoids and synthetic analogues, initial encounter; Z87.891 Personal history of nicotine dependence; Z79.899 Other long term (current) drug therapy; Z79.82 Long term (current) use of aspirin
CPT/HCPCS: 36415; 36600; 71045; 71275; 80048; 80053; 82803; 82962; 83605; 84484; 85025; 85610; 85730; 87040; 87070; 87205; 87426; 87449; 87633; 87635; 87641; 93005; 94002; 94640; 94667; 96365; 96366; 96367; 96372; 96375; 96376; 99218; 99285; J7030; J7040; Q9967; U0005; A4216; G0378; J1940; J2405; U0003

== ENCOUNTER → 2021-05-19 14:58 | Outpatient (CLI) | payer MEDICARE, SELFPAY ==
[2021-03-07 16:44] VITALS: BMI 34.9
[2021-05-19 17:06] LABS: Anion Gap 6 (5-15); BUN 12 mg/dL (7-18); BUN/Creat Ratio 12.2 RATIO (10-20); Chloride 95 mmol/L (98-107); Creatinine, Serum 0.98 mg/dL (0.55-1.02); EST Glomerular Filtration Rate 60 mL/min (>60); Est Glom Filt Rate - Afr Amer 72 mL/min (>60); Glucose 467 mg/dL (74-106); Potassium 4.3 mmol/L (3.5-5.1); Sodium Level 130 mmol/L (136-145)
[2021-05-19 17:17] LABS: BNP,B-Type NATRIURETIC PEPTIDE 74.7 pg/mL (0-100)
== END ==
PROVIDERS: PCP Internal Medicine; Visit Provider Physician Assistant
DX: I50.9 Heart failure, unspecified (principal); I25.110 Atherosclerotic heart disease of native coronary artery with unstable angina pectoris; J18.9 Pneumonia, unspecified organism; J44.0 Chronic obstructive pulmonary disease with (acute) lower respiratory infection
CPT/HCPCS: 36415; 80048; 83880

== ENCOUNTER → 2021-05-30 11:40 | Outpatient (CLI) | payer MEDICARE, SELFPAY ==
[2021-03-07 16:44] VITALS: BMI 34.9
--- NOTE | 2021-05-30 11:43 | US_ITS ---
STUDY: THYROID ULTRASOUND REASON FOR EXAM: Female, 70 years old. Right thyroid nodule on 05/09/2021 CT TECHNIQUE: Ultrasound evaluation of the thyroid was performed with real-time and static godinez-scale imaging. COMPARISON: 04/20/2017 CT, 01/31/2020 CT, 05/09/2021 CT FINDINGS: RIGHT LOBE: The right lobe of the thyroid gland measures 4.9 x 1.7 x 2.3 cm. There is a homogeneous echotexture. 0.9 x 0.8 x 0.7 cm predominantly cystic mid thyroid nodule. 1.5 x 1.7 x 1.3 cm mixed cystic and solid inferior thyroid nodule. Multiple smaller nodules. LEFT LOBE: The left lobe of the thyroid gland measures 4.1 x 1.4 x 1.8 cm. There is a homogeneous echotexture. 0.4 cm mid thyroid cyst. 0.7 cm mid thyroid solid nodule. ISTHMUS: The isthmus measures 3 mm. US/Thyroid IMPRESSION: 7 mm TI-RADS 3 left thyroid nodule does not meet criteria for imaging follow-up or FNA. TI-RADS 2 nodules in the right thyroid do not require imaging follow-up. Electronically Signed: Ethan Thurman MD at 6:52 EDT Tel , Service support ,
== END ==
LOC: US 11:42
PROVIDERS: PCP Internal Medicine; Referring Provider Physician Assistant; Visit Provider Physician Assistant
DX: E04.1 Nontoxic single thyroid nodule (principal)
CPT/HCPCS: 76536

== ENCOUNTER → 2021-06-09 13:34 | Outpatient (CLI) | payer MEDICARE, SELFPAY ==
[2021-03-07 16:44] VITALS: BMI 34.9
[2021-06-09 16:30] LABS: Anion Gap 10 (5-15); BUN 10 mg/dL (7-18); BUN/Creat Ratio 10.5 RATIO (10-20); Calcium,Total 8.9 mg/dL (8.5-10.1); Chloride 99 mmol/L (98-107); Creatinine, Serum 0.95 mg/dL (0.55-1.02); EST Glomerular Filtration Rate 62 mL/min (>60); Est Glom Filt Rate - Afr Amer 75 mL/min (>60); Glucose 365 mg/dL (74-106); Potassium 4.2 mmol/L (3.5-5.1); Sodium Level 135 mmol/L (136-145)
== END ==
PROVIDERS: PCP Internal Medicine; Referring Provider Internal Medicine; Visit Provider Internal Medicine
DX: E11.65 Type 2 diabetes mellitus with hyperglycemia (principal); I10 Essential (primary) hypertension; Z79.4 Long term (current) use of insulin
CPT/HCPCS: 36415; 80048

== ENCOUNTER 2021-07-05 23:16 | Emergency (ER) | payer MEDICARE, SELFPAY ==
[2021-03-07 16:44] VITALS: BMI 34.9
--- NOTE | 2021-07-05 | RAD_ITS ---
STUDY: X-RAY CHEST REASON FOR EXAM: Female, 70 years old. chest pain TECHNIQUE: 2 views COMPARISON: 05/09/2021 FINDINGS: The cardiac silhouette is top normal in size. Small bilateral pleural effusions again noted. The patient''s known multifocal airspace opacities improved.. The trachea is midline. There is no pneumothorax. The bones are grossly intact. RAD/Chest 1 View (Portable) IMPRESSION: Interval improvement in multifocal airspace opacities in the bilateral lungs. Small bilateral pleural effusions. Borderline cardiomegaly. Electronically Signed: Nicholas Pak MD at 1:15 EST Tel , Service support ,
[2021-07-05 23:17] VITALS: BP 179/67; PULSE 73; RESP 20; TEMP 36.7; O2SAT 100; BMI 41.8
--- NOTE | 2021-07-05 23:40 | EKG12_ITS ---
Test Reason : CHEST PAIN Blood Pressure : / mmHG Vent. Rate : 072 BPM Atrial Rate : 072 BPM P-R Int : 152 ms QRS Dur : 078 ms QT Int : 388 ms P-R-T Axes : 061 008 043 degrees QTc Int : 424 ms Normal sinus rhythm Normal ECG Confirmed by BANG MELVIN, ROSALIA ([id number]), design editor JAVIER COLBY ([id number]) on 07/08/2021 9:11:59 AM Referred By: STEPHANIE Confirmed By:ROSALIA CUENCA MD
--- NOTE | 2021-07-05 23:48 | EDS_ITS ---
HPI History of Present Illness Chief Complaint: Chest Pain Narrative Narrative: Patient is a 70-year-old female with past medical history of hypertension hyperlipidemia and COPD who wears oxygen 01/03. She states she was lying down for bed this evening when she developed some midsternal to left-sided chest discomfort. She states there was no nausea vomiting diaphoresis or worsening shortness of breath associated with the symptoms. She states she had a roommate take her blood pressure during this time and it was elevated with a systolic of approximately 175. She states this concerned her and therefore EMS was called to bring her in for evaluation. Patient states that the chest pain lasted approximately 45 minutes to an hour and has since resolved. She states she feels normal at this time but with her blood pressure being elevated at home as well as her history of cardiac disease she presents for evaluation 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 Back pain Bilateral pneumonia CHF (congestive heart failure) Chronic respiratory failure COPD (chronic obstructive pulmonary disease) Depression Health care maintenance Heart disease History of constipation HLD (hyperlipidemia) Hypertension Lung disease MARK (obstructive sleep apnea) Pneumonia Psoriasis SOB (shortness of breath) Home Medications acetaminophen 1,000 mg PO TID PRN #1 tab 03/16/20 [Rx Last Taken 07/15/20 15:00] ipratropium 0.5 mg-albuterol 3 mg (2.5 mg base)/3 mL nebulization soln 3 ml INHALATION Q4H PRN PRN #180 ml 07/11/20 [Rx Last Taken 07/15/20 18:00] nitroglycerin 0.4 mg sublingual tablet 0.4 mg SUBLINGUAL Q5-15M #25 tab 08/13/20 [Rx Last Taken Unknown] docusate sodium 100 mg capsule 100 mg PO BID PRN #60 cap 09/26/20 [Rx Last Taken Unknown] clopidogrel 75 mg tablet 75 mg PO DAILY #90 tab 10/08/20 [Rx Last Taken Unknown] blood sugar diagnostic #100 each 11/05/20 [Rx Last Taken Unknown] pen needle, diabetic 32 gauge x 5/32 #50 ea 12/06/20 [History Last Taken Unknown] atorvastatin 80 mg tablet 80 mg PO QHS #90 tab 12/09/20 [Rx Last Taken Unknown] Handicap Placard #1 ea 12/12/20 [Rx Last Taken Unknown] aspirin 81 mg tablet,delayed release 81 mg PO DAILY 12/27/20 [History Last Taken Unknown] citalopram 40 mg tablet 40 mg PO QHS tab 12/27/20 [History Last Taken Unknown] loratadine 10 mg tablet 10 mg PO DAILY #90 tab 12/30/20 [Rx Last Taken Unknown] pantoprazole 40 mg tablet,delayed release 40 mg PO DAILY #90 tab 01/07/21 [Rx Last Taken Unknown] flash glucose scanning reader #1 ea 01/31/21 [Rx Last Taken Unknown] flash glucose sensor #2 ea 01/31/21 [Rx Last Taken Unknown] albuterol sulfate 90 mcg/actuation aerosol inhaler 2 puff INHALATION Q6H PRN #18 g 02/06/21 [Rx Last Taken Unknown] calcipotriene 0.005 % topical cream 1 applic TOPICAL DAILY #120 g 03/07/21 [Rx Last Taken Unknown] clobetasol 0.05 % topical cream 1 applic TOPICAL BID 14 Days #60 g 03/10/21 [Rx Last Taken Unknown] insulin glargine 100 unit/mL (3 mL) subcutaneous pen 36 unit SUBCUT DAILY 90 Days #32.4 ml 03/10/21 [Rx Last Taken Unknown] metoprolol tartrate 25 mg tablet 12.5 mg PO BID #90 tab 04/25/21 [Rx Last Taken Unknown] fluticasone propionate 50 mcg/actuation nasal spray,suspension 1 spray INTRANASAL DAILY #16 g 04/29/21 [Rx Last Taken Unknown] furosemide [Lasix] 20 mg PO DAILY #30 tab 05/10/21 [Rx Last Taken Unknown] insulin lispro 100 unit/mL subcutaneous pen 10 unit SC TID ml 05/22/21 [History Last Taken Unknown] alprazolam 0.25 mg tablet 0.25 mg PO DAILY PRN #30 tab 06/09/21 [Rx Last Taken Unknown] metformin 500 mg tablet,extended release 24 hr 1,000 mg PO QPM #180 tab 06/10/21 [Rx Last Taken Unknown] risperidone 1 mg tablet 1 mg PO QHS #90 tab 06/11/21 [Rx Last Taken Unknown] isosorbide mononitrate 60 mg tablet,extended release 24 hr 60 mg PO DAILY #30 tab 06/20/21 [Rx Last Taken Unknown] Allergy/AdvReac Type Severity Reaction Status Date / Time amoxicillin [Amoxicillin] Allergy Intermediate Rash Verified 07/05/21 23:17 gabapentin [From Neurontin] Allergy Shortness Verified 07/05/21 23:17 of breath levofloxacin [From Levaquin] Allergy Hives Verified 07/05/21 23:17 pseudoephedrine HCl Allergy Shortness Verified 07/05/21 23:17 [From Sudafed] of breath red dye Allergy Hives Verified 07/05/21 23:17 codeine AdvReac HEADACHE Verified 07/05/21 23:17 Family History (Reviewed 06/25/21 @ 14:01 by Michelle Givens CONTENT ADMINISTRATOR, CONTENT ADMINISTRATOR-C) Brother Heart disease Mother Colon cancer Heart disease Surgical History (Reviewed 06/25/21 @ 14:01 by Michelle Givens CONTENT ADMINISTRATOR, CONTENT ADMINISTRATOR-C) History of cholecystectomy History of left heart catheterization (LHC) (~09/23/20) Stented coronary artery (12/28/18) Social History (Reviewed 06/25/21 @ 14:01 by Michelle Givens CONTENT ADMINISTRATOR, CONTENT ADMINISTRATOR-C) Smoking Status: Former smoker pack-years: 40 how long ago did patient quit smokin year ago alcohol intake: never substance use type: does not use caffeine: Yes Type: carbonated beverages and tea what type of physical activity do you participate in: none ROS ROS ED Constitutional Constitutional ED: Denies chills or fever(s) Eyes Eyes: Denies change in vision ENT ENT ED: Denies sore throat Cardiovascular Cardiovascular: Reports chest pain; Denies palpitations or racing heartbeat Respiratory/Chest Respiratory/Chest: Denies cough or dyspnea Gastrointestinal Gastrointestinal: Denies abdominal pain, diarrhea, nausea or vomiting Genitourinary Genitourinary ED: Denies dysuria Musculoskeletal Musculoskeletal: Denies back pain or myalgias Integumentary Denies rash Neurologic Neurologic: Denies headache(s) EXAM Physical Exam Const Vital Signs: 07/05/21 23:17 07/06/21 00:18 07/06/21 00:31 Temperature 98.1 F Temperature Source Oral Pulse Rate 73 66 65 Respiratory Rate 20 H 20 H 16 Respiratory Pattern Normal Blood Pressure 179/67 H 137/62 H Blood Pressure Mean 104 87 Pulse Ox 100 99 Oxygen Delivery Method 07/06/21 01:11 07/06/21 02:10 Temperature Temperature Source Pulse Rate 63 Respiratory Rate 20 H Respiratory Pattern Blood Pressure 122/66 H 111/67 Blood Pressure Mean 84 81 Pulse Ox 97 Oxygen Delivery Method Room Air Positive well nourished and well developed General Appearance ED: well developed HEENT Reports moist mucous membranes Eyes PERRL and EOMs intact bilaterally Neck supple Chest Wall Chest Narrative: Patient does have reproducible left anterior/midsternal chest wall pain with palpation rib region 4-6 without bony deformity or crepitance Resp normal respiratory effort Resp Narrative: Breath sounds are diminished throughout with faint expiratory wheeze consistent with history of COPD but no signs of respiratory distress Cardio regular rate and regular rhythm Rate: other Other Details: Radial pulses are +2-4 bilaterally are equal and symmetric GI normal to inspection, nondistended, normoactive bowel sounds, non-tender and non-distended GI Narrative: Patient has a reducible ventral hernia without voluntary guarding rigidity or pulsatile mass Auscultation: normoactive bowel sounds Palpation: soft Extremity normal to inspection Extremity Narrative: No asymmetric edema no pitting edema negative Homans' sign bilaterally Neuro oriented x3 and CN's II-XII intact bilaterally Sensorium / Orientation: alert Psych mental status grossly normal Skin no rashes or lesions noted MDM MDM MDM Narrative Medical decision making narrative: Patient presented to the ER mildly hypertensive but this was improved from what she reported at home. She also stated that she had complete resolution of her symptoms. However she does have multiple risk factors for cardiac disease so a work-up was obtained. EKG was sinus rhythm initial and delta troponin were normal. Chest x-ray also shows improvement in her heart failure without obvious pneumonia or pneumothorax. On reevaluation her blood pressure has spontaneously improved and she states that she is still chest pain-free. Therefore at this time with a normal initial and delta troponin normal EKG and spontaneous resolution of of chest discomfort do not feel there is need to keep her in the hospital and patient can be discharged home. Lab Data Attestation: I reviewed the patient's lab results. Labs: Laboratory Results - last 24 hr 07/05/21 07/05/21 07/06/21 23:06 23:06 01:06 WBC 11.5 H RBC 3.80 L Hgb 10.2 L Hct 32.7 L MCV 86.1 MCH 26.8 L MCHC 31.2 L RDW Std Deviation 39.5 RDW Coeff of Malcom 12.6 Plt Count 312 MPV 10.9 Immature Gran % (Auto) 0.500 Neut % (Auto) 74.6 H Lymph % (Auto) 16.1 L Harmon % (Auto) 6.4 Eos % (Auto) 1.6 Baso % (Auto) 0.8 Absolute Neuts (auto) 8.6 H Absolute Lymphs (auto) 1.85 Nucleated RBC % 0 Sodium 132 L Potassium 3.6 Chloride 94 L Carbon Dioxide 29.0 Anion Gap 9 BUN 11 Creatinine 1.03 H Estim Creat Clear Calc 40.77 Est GFR (MDRD) Af Amer 68 Est GFR (MDRD) Non-Af 56 L BUN/Creatinine Ratio 10.7 Glucose 250 H Calcium 9.6 Magnesium 1.8 Troponin I High Sens 6 8 Radiography Diagnostic Testing: Clinical Impression(s) from Imaging Studies Chest X-Ray 07/05/21 00:00 IMPRESSION: Interval improvement in multifocal airspace opacities in the bilateral lungs. Small bilateral pleural effusions. Borderline cardiomegaly. Electronically Signed: Nicholas Pak MD at 1:15 EST Tel , Service support , Discharge Plan Triage Chief Complaint: Chest Pain ED Provider: Marko Smith Dx/Rx/DC Orders Clinical Impression: Nonspecific chest pain, Hypertension Instructions: ED Chest Pain, Uncertain Cause, ED Hypertension, Established Prescriptions: No Action docusate sodium [Colace] 100 mg capsule 100 mg PO BID PRN (Reason: constipation) Qty: 60 RF: 3 nitroglycerin 0.4 mg tablet, sublingual 0.4 mg SUBLINGUAL Q5-15M Qty: 25 RF: 3 (DME) pen needle, diabetic 32 gauge x 5/32 needle See Rx Instructions ea .ROUTE .MEDSUPPLY Qty: 50 RF: 0 (DME) Handicap Placard See Rx Instructions .ROUTE .MEDSUPPLY Qty: 1 RF: 0 aspirin [Adult Low Dose Aspirin] 81 mg tablet,delayed release (DR/EC) 81 mg PO DAILY RF: 0 citalopram 40 mg tablet 40 mg PO QHS RF: 0 loratadine 10 mg tablet 10 mg PO DAILY Qty: 90 RF: 3 fluticasone propionate [Flonase Allergy Relief] 50 mcg/actuation spray,suspension 1 spray intranasal DAILY Qty: 16 RF: 4 Basaglar KwikPen U-100 Insulin 100 unit/mL (3 mL) insulin pen 36 unit subcut DAILY 90 Days Qty: 32.4 RF: 3 clobetasol 0.05 % cream 1 applic topical BID 14 Days Qty: 60 RF: 2 alprazolam 0.25 mg tablet 0.25 mg PO DAILY PRN (Reason: Anxiety) Qty: 30 RF: 0 insulin lispro [Humalog KwikPen Insulin] 100 unit/mL insulin pen 10 unit SC TID RF: 0 acetaminophen 500 MG tablet 1,000 mg PO TID PRN (Reason: Pain Or Fever) Qty: 1 RF: 0 furosemide [Lasix] 20 mg tablet 20 mg PO DAILY Qty: 30 RF: 0 ipratropium-albuterol 0.5 mg-3 mg(2.5 mg base)/3 mL solution for nebulization 3 ml INHALATION Q4H PRN PRN (Reason: SOB &/OR WHEEZING) Qty: 180 RF: 6 clopidogrel 75 mg tablet 75 mg PO DAILY Qty: 90 RF: 3 (DME) Accu-Chek Aundrea Plus test strp Strip See Rx Instructions .ROUTE .MEDSUPPLY Qty: 100 RF: 8 atorvastatin 80 mg tablet 80 mg PO QHS Qty: 90 RF: 3 pantoprazole 40 mg tablet,delayed release (DR/EC) 40 mg PO DAILY Qty: 90 RF: 1 (DME) FreeStyle Emily 2 Oark Misc See Rx Instructions .ROUTE .MEDSUPPLY Qty: 1 RF: 0 (DME) FreeStyle Emily 2 Sensor Kit See Rx Instructions .ROUTE .MEDSUPPLY Qty: 2 RF: 12 albuterol sulfate 90 mcg/actuation HFA aerosol inhaler 2 puff INHALATION Q6H PRN (Reason: shortness of breath or wheezing) Qty: 18 RF: 3 calcipotriene 0.005 % cream 1 applic topical DAILY Qty: 120 RF: 0 metoprolol tartrate 25 mg tablet 12.5 mg PO BID Qty: 90 RF: 3 metformin 500 mg tablet extended release 24 hr 1,000 mg PO QPM Qty: 180 RF: 3 risperidone 1 mg tablet 1 mg PO QHS Qty: 90 RF: 1 isosorbide mononitrate 60 mg tablet extended release 24 hr 60 mg PO DAILY Qty: 30 RF: 11 Primary Care Provider: Billy Madera Referrals: Billy Madera MD [Primary Care Provider] - Disposition Disposition: Home, Self Care
[2021-07-06] MEDS: Aspirin 325 MG Tablet PO (00:07)
[2021-07-06 00:18] VITALS: BP 137/62; PULSE 66; RESP 20; O2SAT 99
[2021-07-06 00:23] LABS: Absolute Lymphocyte Count 1.85 X10^3/uL (0.83-4.51); Absolute Neutrophil Count 8.6 X10^3/uL (2.0-7.7); Basophil# 0.09 X10^3/uL; Basophil% 0.8 % (0-1); Eosinophil# 0.18 X10^3/uL; Eosinophils% 1.6 % (0-5); Hematocrit 32.7 % (37-47); Hemoglobin 10.2 g/dL (12.0-15.0); Lymphocyte # 1.85 X10^3/ul (0.83-4.51); Lymphocyte % 16.1 % (19-41); Mean Corp Hgb Conc 31.2 g/dL (32-36); Mean Corpuscular Hgb 26.8 pg (27.0-32.0); Mean Corpuscular Volume 86.1 fL (81-99); Mean Platelet Vol. 10.9 fl (6.2-12.0); Monocyte# 0.74 X10^3/uL; Monocyte% 6.4 % (0-10); NRBC Flagged by Analyzer 0 % (0-5); Neutrophil # 8.57 X10^3/uL (2.7-7.7); Neutrophil % 74.6 % (47-70); Platelet Count 312 K/mm3 (150-450); RBC Distribution Width CV 12.6 % (11.6-14.6); RBC Distribution Width SD 39.5 fl (35.1-43.9); White Blood Count 11.5 K/mm3 (4.4-11.0)
[2021-07-06 00:31] VITALS: PULSE 65; RESP 20
[2021-07-06 00:39] LABS: Anion Gap 9 (5-15); BUN 11 mg/dL (7-18); BUN/Creat Ratio 10.7 RATIO (10-20); Calcium,Total 9.6 mg/dL (8.5-10.1); Chloride 94 mmol/L (98-107); Creatinine, Serum 1.03 mg/dL (0.55-1.02); EST Glomerular Filtration Rate 56 mL/min (>60); Est Glom Filt Rate - Afr Amer 68 mL/min (>60); Estimated Creatinine Clearance 40.77 ml/min; Glucose 250 mg/dL (74-106); Magnesium 1.8 mg/dL (1.6-2.6); Potassium 3.6 mmol/L (3.5-5.1); Sodium Level 132 mmol/L (136-145); Troponin-I HS 6 pg/mL (3.0-54.0)
[2021-07-06] MEDS: Furosemide 20 MG/2 ML VIAL IV (01:07)
[2021-07-06 01:11] VITALS: BP 122/66
[2021-07-06] MEDS: Ipratropium/Albuterol Sulfate 3 ML AMPUL.NEB INHALATION (01:11)
[2021-07-06 02:09] LABS: Troponin-I HS 8 pg/mL (3.0-54.0)
[2021-07-06 02:10] VITALS: BP 111/67; PULSE 63; RESP 20; O2SAT 97
[2021-07-06 03:00] VITALS: RESP 16
== END 2021-07-06 03:25 | disposition home or self-care (01) ==
PROVIDERS: Emergency Provider Emergency Medicine; PCP Internal Medicine
DX: R07.89 Other chest pain (principal); I11.0 Hypertensive heart disease with heart failure; I50.9 Heart failure, unspecified; J44.9 Chronic obstructive pulmonary disease, unspecified; E78.5 Hyperlipidemia, unspecified; I25.10 Atherosclerotic heart disease of native coronary artery without angina pectoris; F32.A Depression, unspecified; Z99.81 Dependence on supplemental oxygen; Z79.899 Other long term (current) drug therapy; Z87.891 Personal history of nicotine dependence
CPT/HCPCS: 71045; 80048; 83735; 84484; 85025; 93005; 94640; 96374; 99285; J1940

== ENCOUNTER → 2021-07-22 13:02 | Outpatient (CLI) | payer MEDICARE, SELFPAY ==
[2021-03-07 16:44] VITALS: BMI 34.9
--- NOTE | 2021-07-22 13:10 | RAD_ITS ---
STUDY: X-RAY CHEST REASON FOR EXAM: Female, 71 years old. CHEST PAIN shortness of breath, hemoptysis TECHNIQUE: XR Chest 2 Views COMPARISON: 07/05/2021 FINDINGS: There is a left pleural effusions. There is a left lower lobe infiltrates. Normal size heart. Normal mediastinum and wallace. Normal visualized pulmonary arteries. There is atherosclerotic calcification of the aortic arch with tortuosity. There are diffuse degenerative changes of the visualized thoracic spine. There is degenerative osteoarthritis of the bilateral shoulders. There is no demonstrated abnormality of the visualized soft tissue structures of the upper abdomen. RAD/Chest PA and Lateral IMPRESSION: Left pleural effusion and left lower lobe infiltrate. Electronically Signed: Andrew Wheeler MD at 16:53 EST , Service support ,
== END ==
LOC: RAD 13:03
PROVIDERS: PCP Internal Medicine; Referring Provider Physician Assistant; Visit Provider Physician Assistant
DX: J44.9 Chronic obstructive pulmonary disease, unspecified (principal); R04.2 Hemoptysis; R06.00 Dyspnea, unspecified
CPT/HCPCS: 71046

== ENCOUNTER 2021-08-08 22:49 | Observation (INO) | payer MEDICARE, SELFPAY ==
[2021-03-07 16:44] VITALS: BMI 34.9
[2021-08-08 22:49] VITALS: BP 196/91; PULSE 108; RESP 43; TEMP 36.4; O2SAT 94; BMI 44.5
[2021-08-08 22:53] VITALS: O2SAT 96
[2021-08-08 22:54] VITALS: O2SAT 96
--- NOTE | 2021-08-08 22:58 | EKG12_ITS ---
Test Reason : SOB Blood Pressure : / mmHG Vent. Rate : 099 BPM Atrial Rate : 099 BPM P-R Int : 140 ms QRS Dur : 080 ms QT Int : 360 ms P-R-T Axes : 033 025 065 degrees QTc Int : 462 ms Normal sinus rhythm Nonspecific ST and T wave abnormality Abnormal ECG Confirmed by RAMIREZ MELVIN, ARPITA ([id number]), food editor LEILA AGUILERA ([id number]) on 08/13/2021 9:59:44 AM Referred By: LAKHWINDER Confirmed By:ARPITA GUZMÁN MD
--- NOTE | 2021-08-08 22:59 | EDS_ITS ---
HPI History of Present Illness Chief Complaint: Shortness of Breath Informant: patient Onset/Context/Timing Onset: Today Context: - (Worsening symptoms times weeks, but worsened rather abruptly tonight) Current Severity: Moderate Maximum Severity: Moderate Narrative Narrative: Patient presents secondary to shortness of breath. She has a history of COPD and was recently on both doxycycline and azithromycin. She is unable to take steroids due to allergy. Tonight she had worsening of her breathing. She did [id number] DuoNeb treatments without significant improvement. EMS notes she was 88% on her normal 5 L nasal cannula. She denies chest pain. No fever. She does report having diarrhea for the past week. [facility] Medical History Asthma with COPD Atherosclerotic heart disease of [place] coronary artery without angina pectoris Back pain Bilateral pneumonia CHF (congestive heart failure) Chronic respiratory failure COPD (chronic obstructive pulmonary disease) Depression Health care maintenance Heart disease History of constipation HLD (hyperlipidemia) Hypertension Lung disease MARK (obstructive sleep apnea) Pneumonia Psoriasis SOB (shortness of breath) Home Medications acetaminophen 1,000 mg PO TID PRN #1 tab 03/16/20 [Rx Last Taken 07/15/20 15:00] ipratropium 0.5 mg-albuterol 3 mg (2.5 mg base)/3 mL nebulization soln 3 ml INHALATION Q4H PRN PRN #180 ml 07/11/20 [Rx Last Taken 07/15/20 18:00] nitroglycerin 0.4 mg sublingual tablet 0.4 mg SUBLINGUAL Q5-15M #25 tab 08/13/20 [Rx Last Taken Unknown] docusate sodium 100 mg capsule 100 mg PO BID PRN #60 cap 09/26/20 [Rx Last Taken Unknown] clopidogrel 75 mg tablet 75 mg PO DAILY #90 tab 10/08/20 [Rx Last Taken Unknown] blood sugar diagnostic #100 each 11/05/20 [Rx Last Taken Unknown] pen needle, diabetic 32 gauge x #50 ea 12/06/20 [History Last Taken Unknown] atorvastatin 80 mg tablet 80 mg PO QHS #90 tab 12/09/20 [Rx Last Taken Unknown] Handicap Placard #1 ea 12/12/20 [Rx Last Taken Unknown] aspirin 81 mg tablet,delayed release 81 mg PO DAILY 12/27/20 [History Last Taken Unknown] loratadine 10 mg tablet 10 mg PO DAILY #90 tab 12/30/20 [Rx Last Taken Unknown] flash glucose scanning reader #1 ea 01/31/21 [Rx Last Taken Unknown] flash glucose sensor #2 ea 01/31/21 [Rx Last Taken Unknown] albuterol sulfate 90 mcg/actuation aerosol inhaler 2 puff INHALATION Q6H PRN #18 g 02/06/21 [Rx Last Taken Unknown] calcipotriene 0.005 % topical cream 1 applic TOPICAL DAILY #120 g 03/07/21 [Rx Last Taken Unknown] clobetasol 0.05 % topical cream 1 applic TOPICAL BID 14 Days #60 g 03/10/21 [Rx Last Taken Unknown] insulin glargine 100 unit/mL (3 mL) subcutaneous pen 36 unit SUBCUT DAILY 90 Days #32.4 ml 03/10/21 [Rx Last Taken Unknown] metoprolol tartrate 25 mg tablet 12.5 mg PO BID #90 tab 04/25/21 [Rx Last Taken Unknown] fluticasone propionate 50 mcg/actuation nasal spray,suspension 1 spray INTRANASAL DAILY #16 g 04/29/21 [Rx Last Taken Unknown] insulin lispro 100 unit/mL subcutaneous pen 10 unit SC TID ml 05/22/21 [History Last Taken Unknown] metformin 500 mg tablet,extended release 24 hr 1,000 mg PO QPM #180 tab 06/10/21 [Rx Last Taken Unknown] risperidone 1 mg tablet 1 mg PO QHS #90 tab 06/11/21 [Rx Last Taken Unknown] isosorbide mononitrate 60 mg tablet,extended release 24 hr 60 mg PO DAILY #30 tab 06/20/21 [Rx Last Taken Unknown] pantoprazole 40 mg tablet,delayed release 40 mg PO DAILY #90 tab 07/10/21 [Rx Last Taken Unknown] alprazolam 0.25 mg tablet 0.25 mg PO DAILY PRN #30 tab 07/16/21 [Rx Last Taken Unknown] furosemide 20 mg tablet 20 mg PO DAILY #30 tab 07/21/21 [Rx Last Taken Unknown] cefpodoxime 200 mg tablet 200 mg PO BID #14 tab 07/23/21 [Rx Last Taken Unknown] citalopram 40 mg tablet 40 mg PO QHS #90 tab 07/23/21 [Rx Last Taken Unknown] guaifenesin 600 mg tablet, extended release 12 hr 600 mg PO BID #90 tab 07/30/21 [Rx Last Taken Unknown] Allergy/AdvReac Type Severity Reaction Status Date / Time amoxicillin [Amoxicillin] Allergy Intermediate Rash Verified 08/08/21 22:53 gabapentin [From Neurontin] Allergy Shortness Verified 08/08/21 22:53 of breath levofloxacin [From Levaquin] Allergy Hives Verified 08/08/21 22:53 pseudoephedrine HCl Allergy Shortness Verified 08/08/21 22:53 [From Sudafed] of breath red dye Allergy Hives Verified 08/08/21 22:53 prednisone AdvReac Severe mean mood Verified 08/08/21 22:53 codeine AdvReac HEADACHE Verified 08/08/21 22:53 Family History Brother Heart disease Mother Colon cancer Heart disease Surgical History History of cholecystectomy History of left heart catheterization (LHC) (~09/23/20) Stented coronary artery (12/28/18) Social History Smoking Status: Former smoker pack-years: 40 how long ago did patient quit smokin year ago alcohol intake: never substance use type: does not use caffeine: Yes Type: carbonated beverages and tea what type of physical activity do you participate in: none ROS ROS ED Constitutional Constitutional ED: Denies chills or fever(s) Eyes Eyes: Denies change in vision ENT ENT ED: Denies rhinorrhea or sore throat Cardiovascular Cardiovascular: Denies chest pain Respiratory/Chest Respiratory/Chest: Reports cough and dyspnea Gastrointestinal Gastrointestinal: Reports diarrhea; Denies nausea or vomiting Neurologic Neurologic: Denies headache(s) Allergic/Immunologic Allergic/Immunologic ED: Denies urticaria EXAM Physical Exam Const Vital Signs: 08/08/21 22:49 08/08/21 22:53 08/08/21 22:54 Temperature 97.5 F L Temperature Source Temporal Pulse Rate 108 H Respiratory Rate 43 H Respiratory Effort Short of Breath Labored Respiratory Depth Deep Respiratory Pattern Tachypnea Blood Pressure 196/91 H Blood Pressure Mean 126 Pulse Ox 94 96 Oxygen Delivery Method Non-Rebreather Non-Rebreather Non-Rebreather Oxygen Flow Rate (L/min) 10 10 10 Fraction of Inspired Oxygen (FIO2) 08/08/21 23:10 08/09/21 00:28 08/09/21 00:39 Temperature 97.0 F L Temperature Source Temporal Pulse Rate 96 81 81 Respiratory Rate 23 H 20 H 25 H Respiratory Effort Respiratory Depth Respiratory Pattern Tachypnea Blood Pressure 138/91 H 154/73 H Blood Pressure Mean 106 100 Pulse Ox 97 98 99 Oxygen Delivery Method Bi-pap Bi-pap Oxygen Flow Rate (L/min) Fraction of Inspired Oxygen (FIO2) 35 Positive well nourished and well developed General Appearance ED: well developed HEENT Reports moist mucous membranes Eyes PERRL and EOMs intact bilaterally Neck supple Chest Wall inspection of chest normal Resp Resp Narrative: Diminished air movement with mild expiratory wheezes. Cardio Rate: tachycardic GI non-tender Palpation: soft Extremity normal to inspection Neuro oriented x3 Sensorium / Orientation: alert Psych Mood & Affect: anxious Skin no rashes or lesions noted MDM MDM MDM Narrative Medical decision making narrative: Patient was placed on BiPAP on arrival. Her FiO2 was quickly able to be reduced down to 35%. Lab work, Covid swab, chest x- ray obtained. Lab Data Attestation: I reviewed the patient's lab results. Labs: Laboratory Results - last 24 hr 08/08/21 08/08/21 08/08/21 23:01 23:01 23:01 WBC 10.4 RBC 3.91 L Hgb 10.2 L Hct 33.0 L MCV 84.4 MCH 26.1 L MCHC 30.9 L RDW Std Deviation 39.5 RDW Coeff of [place] 13.1 Plt Count 323 MPV 11.6 Immature Gran % (Auto) 1.300 H Neut % (Auto) 73.5 H Lymph % (Auto) 17.5 L [place] % (Auto) 5.6 Eos % (Auto) 1.4 Baso % (Auto) 0.7 Absolute Neuts (auto) 7.6 Absolute Lymphs (auto) 1.81 Nucleated RBC % 0 Sodium 137 Potassium 3.8 Chloride 99 Carbon Dioxide 30.0 Anion Gap 8 BUN 9 Creatinine 1.26 H Estim Creat Clear Calc 32.86 Est GFR (MDRD) Af Amer 54 L Est GFR (MDRD) Non-Af 45 L BUN/Creatinine Ratio 7.1 L Glucose 334 H Calcium 8.9 Troponin I High Sens 12 B-Natriuretic Peptide 155.2 H Radiography Chest X-Ray - ED: 1 View, Read by ED Physician and Chronic Changes Diagnostic Testing: Clinical Impression(s) from Imaging Studies Chest X-Ray 08/08/21 23:45 IMPRESSION: 1. Mild worsening of patchy bibasilar infiltrate/pneumonia without leana lobar consolidation. 2. No congestive failure. Electronically Signed: Max Garcia MD at 0:31 EST Tel , Service support , EKG Initial EKG: Attestation: I personally reviewed and interpreted this EKG as follows: Interpretation: Sinus Rhythm (Sinus at 99 with no acute ischemia.) Treatment and Re-Evaluation Comments:: On repeat evaluation patient resting much more comfortably. Respiratory rate is down around 20. She does want try going back to her nasal cannula at this time. Lab work reviewed and does not reveal an elevated white count. Troponin is normal and BNP is only 155. Chest x-ray is read by radiology as worsening bilateral infiltrates/pneumonia. They do not feel that she has evidence of congestive heart failure. Patient will be treated with azithromycin and I will speak with hospitalist regarding observation at least overnight. Discharge Plan Triage Chief Complaint: Shortness of Breath ED Provider: Mariah Miller Dx/Rx/DC Orders Clinical Impression: COPD exacerbation Prescriptions: No Action docusate sodium [Colace] 100 mg capsule 100 mg PO BID PRN (Reason: constipation) Qty: 60 RF: 3 nitroglycerin 0.4 mg tablet, sublingual 0.4 mg SUBLINGUAL Q5-15M Qty: 25 RF: 3 (DME) pen needle, diabetic 32 gauge x 5/32 needle See Rx Instructions ea .ROUTE .MEDSUPPLY Qty: 50 RF: 0 (DME) Handicap Placard See Rx Instructions .ROUTE .MEDSUPPLY Qty: 1 RF: 0 aspirin [Adult Low Dose Aspirin] 81 mg tablet,delayed release (DR/EC) 81 mg PO DAILY RF: 0 loratadine 10 mg tablet 10 mg PO DAILY Qty: 90 RF: 3 fluticasone propionate [Flonase Allergy Relief] 50 mcg/actuation spray,suspension 1 spray intranasal DAILY Qty: 16 RF: 4 Basaglar KwikPen U-100 Insulin 100 unit/mL (3 mL) insulin pen 36 unit subcut DAILY 90 Days Qty: 32.4 RF: 3 clobetasol 0.05 % cream 1 applic topical BID 14 Days Qty: 60 RF: 2 guaifenesin 600 mg tablet extended release 12hr 600 mg PO BID Qty: 90 RF: 6 insulin lispro [Humalog KwikPen Insulin] 100 unit/mL insulin pen 10 unit SC TID RF: 0 acetaminophen 500 MG tablet 1,000 mg PO TID PRN (Reason: Pain Or Fever) Qty: 1 RF: 0 ipratropium-albuterol 0.5 mg-3 mg(2.5 mg base)/3 mL solution for nebulization 3 ml INHALATION Q4H PRN PRN (Reason: SOB &/OR WHEEZING) Qty: 180 RF: 6 clopidogrel 75 mg tablet 75 mg PO DAILY Qty: 90 RF: 3 (DME) Accu-Chek [place] Plus test strp Strip See Rx Instructions .ROUTE .MEDSUPPLY Qty: 100 RF: 8 atorvastatin 80 mg tablet 80 mg PO QHS Qty: 90 RF: 3 (DME) FreeStyle Emily 2 [place] Misc See Rx Instructions .ROUTE .MEDSUPPLY Qty: 1 RF: 0 (DME) FreeStyle Emily 2 Sensor Kit See Rx Instructions .ROUTE .MEDSUPPLY Qty: 2 RF: 12 albuterol sulfate 90 mcg/actuation HFA aerosol inhaler 2 puff INHALATION Q6H PRN (Reason: shortness of breath or wheezing) Qty: 18 RF: 3 calcipotriene 0.005 % cream 1 applic topical DAILY Qty: 120 RF: 0 metoprolol tartrate 25 mg tablet 12.5 mg PO BID Qty: 90 RF: 3 metformin 500 mg tablet extended release 24 hr 1,000 mg PO QPM Qty: 180 RF: 3 risperidone 1 mg tablet 1 mg PO QHS Qty: 90 RF: 1 isosorbide mononitrate 60 mg tablet extended release 24 hr 60 mg PO DAILY Qty: 30 RF: 11 pantoprazole 40 mg tablet,delayed release (DR/EC) 40 mg PO DAILY Qty: 90 RF: 1 alprazolam 0.25 mg tablet 0.25 mg PO DAILY PRN (Reason: Anxiety) Qty: 30 RF: 0 furosemide [Lasix] 20 mg tablet 20 mg PO DAILY Qty: 30 RF: 0 citalopram 40 mg tablet 40 mg PO QHS Qty: 90 RF: 1 cefpodoxime 200 mg tablet 200 mg PO BID Qty: 14 RF: 0 Primary Care Provider: Billy Madera Referrals: Billy Madera MD [Primary Care Provider] - Disposition Disposition: Acute Care Hospital [facility]
[2021-08-08 23:10] VITALS: PULSE 96; RESP 12; RESP 23; O2SAT 97
[2021-08-08 23:34] LABS: Anion Gap 8 (5-15); BUN 9 mg/dL (7-18); BUN/Creat Ratio 7.1 RATIO (10-20); Calcium,Total 8.9 mg/dL (8.5-10.1); Chloride 99 mmol/L (98-107); Creatinine, Serum 1.26 mg/dL (0.55-1.02); EST Glomerular Filtration Rate 45 mL/min (>60); Est Glom Filt Rate - Afr Amer 54 mL/min (>60); Estimated Creatinine Clearance 32.86 ml/min; Glucose 334 mg/dL (74-106); Potassium 3.8 mmol/L (3.5-5.1); Sodium Level 137 mmol/L (136-145); Troponin-I HS 12 pg/mL (3.0-54.0)
--- NOTE | 2021-08-08 23:45 | RAD_ITS ---
INDICATION: sob EXAMINATION/TECHNIQUE: X-RAY - XR Chest 1 View COMPARISON: 07/25/2021 FINDINGS: LIFE-SUPPORT AND LINES: 1. None HEART AND VESSELS: Cardiac silhouette is unchanged. No evidence congestive failure. LUNGS AND PLEURAL SPACES: Patchy areas of interstitial and hazy parenchymal infiltrate at the RIGHT lung base with mild worsening, and in the lingular segment of the LEFT upper lobe. Small LEFT effusion and pleural scar at the LEFT CP angle. The remaining lung zones are clear. MEDIASTINUM AND HILAR REGIONS: No masses adenopathy noted. No areas of calcification. Visualized upper airway is normal in position. BONY ELEMENTS: No acute bony changes noted. RAD/Chest 1 View (Portable) IMPRESSION: 1. Mild worsening of patchy bibasilar infiltrate/pneumonia without leana lobar consolidation. 2. No congestive failure. Electronically Signed: Max Garcia MD at 0:31 EST Tel , Service support ,
[2021-08-08 23:55] LABS: Absolute Lymphocyte Count 1.81 X10^3/uL (0.83-4.51); Absolute Neutrophil Count 7.6 X10^3/uL (2.0-7.7); Basophil# 0.07 X10^3/uL; Basophil% 0.7 % (0-1); Eosinophil# 0.15 X10^3/uL; Eosinophils% 1.4 % (0-5); Hemoglobin 10.2 g/dL (12.0-15.0); Lymphocyte # 1.81 X10^3/ul (0.83-4.51); Lymphocyte % 17.5 % (19-41); Mean Corp Hgb Conc 30.9 g/dL (32-36); Mean Corpuscular Hgb 26.1 pg (27.0-32.0); Mean Corpuscular Volume 84.4 fL (81-99); Mean Platelet Vol. 11.6 fl (6.2-12.0); Monocyte# 0.58 X10^3/uL; Monocyte% 5.6 % (0-10); NRBC Flagged by Analyzer 0 % (0-5); Neutrophil # 7.62 X10^3/uL (2.7-7.7); Neutrophil % 73.5 % (47-70); Platelet Count 323 K/mm3 (150-450); RBC Distribution Width CV 13.1 % (11.6-14.6); RBC Distribution Width SD 39.5 fl (35.1-43.9); Red Blood Count 3.91 M/mm3 (4.2-5.4); White Blood Count 10.4 K/mm3 (4.4-11.0)
[2021-08-09] VITALS (14 sets, daily range): BP systolic 132–164; BP diastolic 62–91; PULSE 66–94; RESP 12–34; TEMP 36.1–36.7; O2SAT 93–100; BMI 41.3
[2021-08-09 00:17] LABS: BNP,B-Type NATRIURETIC PEPTIDE 155.2 pg/mL (0-100)
--- NOTE | 2021-08-09 02:27 | PCM.HP.STD ---
[facility] - General General Date of Admission: 08/09/21 HPI Narrative TIM CEDILLO, is a 71 F who presents after developing acute worsening of shortness of breath this evening when she laid down in bed after eating pork and sauerkraut. She immediately felt shaky and feeling panicked and her breathing increased so she called 911. She tried DuoNebs x2 but this did not alleviate her symptoms. EMS recorded pulse ox of 88% on 5 L and she was put on nonrebreather. The patient did not have any chest pain but says it is racing. The patient notes a long history of COPD and has been on azithromycin and doxycycline recently and also saw pulmonary recently. She ran out of albuterol within the last 2 days but she is using DuoNeb nebulizer at home. She also notes that she did not take her Lasix for 2 days. Patient does have a long history of noncompliance with her medical prescriptions. Of note she is very opposed to steroids because they affect her mentally. She has not been smoking for 18 months. Does not complain of cough. Upon entrance to the ED the patient was placed on BiPAP and she had significant improvement in her oxygenation. After several hours she was taken off to 5 L nasal cannula (baseline) and is saturating 97 -98%. Trop negative. BNP 155s, from 74 previous. Given albuterol in ED. [facility] Medical History Asthma with COPD Atherosclerotic heart disease of [place] coronary artery without angina pectoris Back pain Bilateral pneumonia CHF (congestive heart failure) Chronic respiratory failure COPD (chronic obstructive pulmonary disease) Depression Health care maintenance Heart disease History of constipation HLD (hyperlipidemia) Hypertension Lung disease MARK (obstructive sleep apnea) Pneumonia Psoriasis SOB (shortness of breath) Home Medications acetaminophen 1,000 mg PO TID PRN #1 tab 03/16/20 [Rx Last Taken 07/15/20 15:00] ipratropium 0.5 mg-albuterol 3 mg (2.5 mg base)/3 mL nebulization soln 3 ml INHALATION Q4H PRN PRN #180 ml 07/11/20 [Rx Last Taken 07/15/20 18:00] nitroglycerin 0.4 mg sublingual tablet 0.4 mg SUBLINGUAL Q5-15M #25 tab 08/13/20 [Rx Last Taken Unknown] docusate sodium 100 mg capsule 100 mg PO BID PRN #60 cap 09/26/20 [Rx Last Taken Unknown] clopidogrel 75 mg tablet 75 mg PO DAILY #90 tab 10/08/20 [Rx Last Taken Unknown] blood sugar diagnostic #100 each 11/05/20 [Rx Last Taken Unknown] pen needle, diabetic 32 gauge x 32 #50 ea 12/06/20 [History Last Taken Unknown] atorvastatin 80 mg tablet 80 mg PO QHS #90 tab 12/09/20 [Rx Last Taken Unknown] Handicap Placard #1 ea 12/12/20 [Rx Last Taken Unknown] aspirin 81 mg tablet,delayed release 81 mg PO DAILY 12/27/20 [History Last Taken Unknown] loratadine 10 mg tablet 10 mg PO DAILY #90 tab 12/30/20 [Rx Last Taken Unknown] flash glucose scanning reader #1 ea 01/31/21 [Rx Last Taken Unknown] flash glucose sensor #2 ea 01/31/21 [Rx Last Taken Unknown] albuterol sulfate 90 mcg/actuation aerosol inhaler 2 puff INHALATION Q6H PRN #18 g 02/06/21 [Rx Last Taken Unknown] calcipotriene 0.005 % topical cream 1 applic TOPICAL DAILY #120 g 03/07/21 [Rx Last Taken Unknown] clobetasol 0.05 % topical cream 1 applic TOPICAL BID 14 Days #60 g 03/10/21 [Rx Last Taken Unknown] insulin glargine 100 unit/mL (3 mL) subcutaneous pen 36 unit SUBCUT DAILY 90 Days #32.4 ml 03/10/21 [Rx Last Taken Unknown] metoprolol tartrate 25 mg tablet 12.5 mg PO BID #90 tab 04/25/21 [Rx Last Taken Unknown] fluticasone propionate 50 mcg/actuation nasal spray,suspension 1 spray INTRANASAL DAILY #16 g 04/29/21 [Rx Last Taken Unknown] insulin lispro 100 unit/mL subcutaneous pen 10 unit SC TID ml 05/22/21 [History Last Taken Unknown] metformin 500 mg tablet,extended release 24 hr 1,000 mg PO QPM #180 tab 06/10/21 [Rx Last Taken Unknown] risperidone 1 mg tablet 1 mg PO QHS #90 tab 06/11/21 [Rx Last Taken Unknown] isosorbide mononitrate 60 mg tablet,extended release 24 hr 60 mg PO DAILY #30 tab 06/20/21 [Rx Last Taken Unknown] pantoprazole 40 mg tablet,delayed release 40 mg PO DAILY #90 tab 07/10/21 [Rx Last Taken Unknown] alprazolam 0.25 mg tablet 0.25 mg PO DAILY PRN #30 tab 07/16/21 [Rx Last Taken Unknown] furosemide 20 mg tablet 20 mg PO DAILY #30 tab 07/21/21 [Rx Last Taken Unknown] cefpodoxime 200 mg tablet 200 mg PO BID #14 tab 07/23/21 [Rx Last Taken Unknown] citalopram 40 mg tablet 40 mg PO QHS #90 tab 07/23/21 [Rx Last Taken Unknown] guaifenesin 600 mg tablet, extended release 12 hr 600 mg PO BID #90 tab 07/30/21 [Rx Last Taken Unknown] Allergy/AdvReac Type Severity Reaction Status Date / Time amoxicillin [Amoxicillin] Allergy Intermediate Rash Verified 08/08/21 22:53 gabapentin [From Neurontin] Allergy Shortness Verified 08/08/21 22:53 of breath levofloxacin [From Levaquin] Allergy Hives Verified 08/08/21 22:53 pseudoephedrine HCl Allergy Shortness Verified 08/08/21 22:53 [From Sudafed] of breath red dye Allergy Hives Verified 08/08/21 22:53 prednisone AdvReac Severe mean mood Verified 08/08/21 22:53 codeine AdvReac HEADACHE Verified 08/08/21 22:53 Family History Brother Heart disease Mother Colon cancer Heart disease Surgical History History of cholecystectomy History of left heart catheterization (LHC) (~09/23/20) Stented coronary artery (12/28/18) Social History Smoking Status: Former smoker pack-years: 40 how long ago did patient quit smokin year ago alcohol intake: never substance use type: does not use caffeine: Yes Type: carbonated beverages and tea what type of physical activity do you participate in: none ROS ROS Narrative No fevers, cough. no cp + CP No diarrhea, constipaiton no dysuria, hematura no trouble with nausea/ vomiting weight keeps increasing due to intake No significant insomnia Trouble seeing hearing swallowing No skin or joint muscle issues no abdominal pain Vital Signs Vital Signs Vital Signs: 08/08/21 22:49 08/08/21 22:53 08/08/21 22:54 Temperature 97.5 F L Temperature Source Temporal Pulse Rate 108 H Respiratory Rate 43 H Respiratory Effort Short of Breath Labored Respiratory Depth Deep Respiratory Pattern Tachypnea Blood Pressure 196/91 H Blood Pressure Mean 126 Pulse Ox 94 96 Oxygen Delivery Method Non-Rebreather Non-Rebreather Non-Rebreather Oxygen Flow Rate (L/min) 10 10 10 Fraction of Inspired Oxygen (FIO2) 08/08/21 23:10 08/09/21 00:28 08/09/21 00:39 Temperature 97.0 F L Temperature Source Temporal Pulse Rate 96 81 81 Respiratory Rate 23 H 20 H 25 H Respiratory Effort Respiratory Depth Respiratory Pattern Tachypnea Blood Pressure 138/91 H 154/73 H Blood Pressure Mean 106 100 Pulse Ox 97 98 99 Oxygen Delivery Method Bi-pap Bi-pap Oxygen Flow Rate (L/min) Fraction of Inspired Oxygen (FIO2) 35 08/09/21 01:15 Temperature 97.0 F L Temperature Source Temporal Pulse Rate 94 Respiratory Rate 17 Respiratory Effort Respiratory Depth Respiratory Pattern Blood Pressure 152/62 H Blood Pressure Mean 92 Pulse Ox 93 Oxygen Delivery Method Nasal Cannula Oxygen Flow Rate (L/min) 5 Fraction of Inspired Oxygen (FIO2) 35 Weight Weight: 243 lb 6.245 oz Body Mass Index (BMI) 44.5 Physical Exam Narrative Unkempt but pleasant HEENT moist mucous membranes Eyes PERRL and EOMs intact bilaterally Neck supple Chest Wall inspection of chest normal Resp Resp Narrative: Diminished air movement. She has a unique way of taking light shallow rapid breaths , but does not appear to be in any distress and is 98% on her 5 L . Significant crackles LLL and no wheezes Cardio Rate: tachycardic GI non-tender Palpation: soft Extremity normal to inspection Sensorium / Orientation: alert Psych Mood & Affect: anxious Skin no rashes or lesions noted Results Lab / Micro Data Result Diagrams: 08/08/21 23:01 08/08/21 23:01 Labs: Laboratory Results - last 24 hr 08/08/21 23:01: WBC 10.4, RBC 3.91 L, Hgb 10.2 L, Hct 33.0 L, MCV 84.4, MCH 26.1 L, MCHC 30.9 L, RDW Std Deviation 39.5, RDW Coeff of [place] 13.1, Plt Count 323, MPV 11.6, Immature Gran % (Auto) 1.300 H, Neut % (Auto) 73.5 H, Lymph % (Auto) 17.5 L, [place] % (Auto) 5.6, Eos % (Auto) 1.4, Baso % (Auto) 0.7, Absolute Neuts (auto) 7.6, Absolute Lymphs (auto) 1.81, Nucleated RBC % 0 08/08/21 23:01: Sodium 137, Potassium 3.8, Chloride 99, Carbon Dioxide 30.0, Anion Gap 8, BUN 9, Creatinine 1.26 H, Estim Creat Clear Calc 32.86, Est GFR (MDRD) Af Amer 54 L, Est GFR (MDRD) Non-Af 45 L, BUN/Creatinine Ratio 7.1 L, Glucose 334 H, Calcium 8.9, Troponin I High Sens 12 08/08/21 23:01: B-Natriuretic Peptide 155.2 H Micro: Microbiology 08/08/21 23:17 Nasal Secretion SARS-CoV-2 Antigen (Rapid) - Final Radiology Impression Chest X-Ray 08/08/21 23:45 IMPRESSION: 1. Mild worsening of patchy bibasilar infiltrate/pneumonia without leana lobar consolidation. 2. No congestive failure. Electronically Signed: Max Garcia MD at 0:31 EST Tel , Service support , Assessment & Plan Assessment/Plan (1) Type 2 diabetes mellitus: QUALIFIERS: Diabetes mellitus group home insulin use: with long term acute care registered nurse use Diabetes mellitus complication status: with hyperglycemia Qualified Code(s): E11.65 - Type 2 diabetes mellitus with hyperglycemia; Z79.4 - shelter (current) use of insulin (2) Smoking greater than 40 pack years: (3) Chronic respiratory failure: QUALIFIERS: Respiratory failure complication: hypoxia Qualified Code(s): J96.11 - Chronic respiratory failure with hypoxia (4) Hypertension: QUALIFIERS: Hypertension type: essential hypertension Qualified Code(s): I10 - Essential (primary) hypertension (5) Acute and chronic respiratory failure with hypoxia: PLAN: Acute on chronic respiratory hypoxia History of CHF COPD -Little clinical support for pneumonia, and with crackles in the left lower lobe and noncompliance with Lasix I would favor mild overload. She appears a little wet (even tho bnp not exorbitantly high). -Scheduled DuoNebs given COPD condition -ADMIT under observation -We will avoid steroids per patient request and at this point no need for antibiotics -Give Lasix 40 mg IV now -Daily weights -Salt restriction with fluid restriction to 1500 mL daily -Covid was negative HTN - Resume home meds Diabetes -Resume SSI with routine checks -Resume long acting home insulin 36 U Full code Carb consistent diet Fluid restriction, low salt Lovenox for DVT prophylaxis Alec Reyes MD Charges/Coding Visit Charges OBSV E&M: 47143 Initial observation care L2
--- NOTE | 2021-08-09 02:39 | PCS.PANDOC ---
PANDEMIC DOCUMENTATION INITIATED: Date: 03/24/2021 Time: 190
[2021-08-09 03:25] LABS: Bedside Glucose 399 mg/dL (70-110)
[2021-08-09] MEDS: Furosemide 40 MG/4 ML Vial IV (03:27)
[2021-08-09] MEDS: 0.9% Saline Lock 10 ML Syringe IV (03:27)
[2021-08-09] MEDS: Insulin Lispro 100 UNIT/ML INSULN.PEN 12 UNIT SC (03:34)
[2021-08-09] MEDS: Insulin Lispro 100 UNIT/ML INSULN.PEN SC ×4 (06:21→20:20)
[2021-08-09 06:36] LABS: Bedside Glucose 278 mg/dL (70-110)
[2021-08-09] MEDS: Ipratropium/Albuterol Sulfate 3 ML AMPUL.NEB INHALATION ×2 (07:25→19:28)
--- NOTE | 2021-08-09 07:52 | PN.HOSP_ITS ---
Subjective Subjective No fever. On 3 L of oxygen. Admitted with sudden onset of shortness of breath, dyspnea. History of COPD, heart failure. Baseline 5 L of oxygen at home. The patient states she did not had good bowel emptying, usually small amount and does not have sense of emptying. Feels upper abdominal distention/bloating and gas. She had flatus yesterday. Objective Data Objective Data Vital Signs: Vital Signs Temp Pulse Resp BP Pulse Ox 98.1 F 88 20 H 164/85 H 94 08/09/21 01:21 08/09/21 07:22 08/09/21 07:22 08/09/21 01:21 08/09/21 07:22 Oxygen Flow Rate (L/min) 3 Oxygen Delivery Method Nasal Cannula Weight: 226 lb 3.108 oz Body Mass Index (BMI) 41.3 Intake & Output: Intake and Output for Last 24 Hours 08/07/21 08/08/21 08/09/21 23:59 23:59 23:59 Intake Total 255 / 255 Balance 255 / 255 Lab / Micro Data Result Diagrams: 08/08/21 23:01 08/08/21 23:01 Labs: Laboratory Results - last 24 hr 08/08/21 23:01: WBC 10.4, RBC 3.91 L, Hgb 10.2 L, Hct 33.0 L, MCV 84.4, MCH 26.1 L, MCHC 30.9 L, RDW Std Deviation 39.5, RDW Coeff of Malcom 13.1, Plt Count 323, MPV 11.6, Immature Gran % (Auto) 1.300 H, Neut % (Auto) 73.5 H, Lymph % (Auto) 17.5 L, [place] % (Auto) 5.6, Eos % (Auto) 1.4, Baso % (Auto) 0.7, Absolute Neuts (auto) 7.6, Absolute Lymphs (auto) 1.81, Nucleated RBC % 0 08/08/21 23:01: Sodium 137, Potassium 3.8, Chloride 99, Carbon Dioxide 30.0, Anion Gap 8, BUN 9, Creatinine 1.26 H, Estim Creat Clear Calc 32.86, Est GFR (MDRD) Af Amer 54 L, Est GFR (MDRD) Non-Af 45 L, BUN/Creatinine Ratio 7.1 L, Glucose 334 H, Calcium 8.9, Troponin I High Sens 12 08/08/21 23:01: B-Natriuretic Peptide 155.2 H 08/09/21 03:15: POC Glucose 399 H 08/09/21 06:20: POC Glucose 278 H Micro: Microbiology 08/08/21 23:17 Nasal Secretion SARS-CoV-2 Antigen (Rapid) - Final Radiography Diagnostic Testing: Radiology Impression Chest X-Ray 08/08/21 23:45 IMPRESSION: 1. Mild worsening of patchy bibasilar infiltrate/pneumonia without leana lobar consolidation. 2. No congestive failure. Electronically Signed: Max Garcia MD at 0:31 EST Tel , Service support , Physical Exam Narrative General: Alert, Oriented x3, Cooperative HEENT: Atraumatic, PERRLA, EOMI, Normocephalic Oral: No Gingival or Mucosal Lesions/ Ulcerations Neck: Supple, No JVD, Negative Carotid Bruits Lungs: Air entry diminished in bilateral lung bases. Mild bilateral expiratory rhonchi. Cardiovascular: Regular rate, Regular Rhythm, Normal S1, Normal S2, No murmurs Abdomen: Mild upper abdominal distention. Bowel sounds sluggish Soft, Non Tender : No renal angle tenderness. No suprapubic tenderness. 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 Qualified Code(s): E11.65 - Type 2 diabetes mellitus with hyperglycemia; Z79.4 - marine oil terminal superintendent (current) use of insulin (2) Smoking greater than 40 pack years: (3) Chronic respiratory failure: QUALIFIERS: Respiratory failure complication: hypoxia Qualified Code(s): J96.11 - Chronic respiratory failure with hypoxia (4) Hypertension: QUALIFIERS: Hypertension type: essential hypertension Qualified Code(s): I10 - Essential (primary) hypertension (5) Acute and chronic respiratory failure with hypoxia: PLAN: Acute on chronic hypoxic respiratory failure probably due to COPD exacerbation probably viral bronchitis: Chest x-ray shows prominence of right lower lobe and left lower lobe infiltrate but clinically she does not have fever, significant cough or sputum production. She had more than a Covid vaccine and booster dose. She also had 5 days of azithromycin and 7 days of doxycycline as an outpatient treatment therefore will hold on further antibiotic. RSV and flu panel ordered. Patient had echo in July 2020 shows EF 60%, mild MR, mild TR, RVSP 37 mmHg. Clinically does not have signs and symptoms of CHF exacerbation. Increased alprazolam home dose 0.25 twice daily as needed and BuSpar 10 mg twice daily. On ipratropium. Upper abdominal bloating/dyspeptic symptoms: Probably due to constipation. X- ray abdomen erect and supine ordered. On stool softeners. HTN - Resume home meds Diabetes mellitus type II: Accu-Cheks glucose is uncontrolled and high. Started on Humalog 10 units subcutaneous 3 times daily AC. Lantus insulin dose in creased. Carb controlled diet. Full code Lovenox for DVT prophylaxis Charges/Coding Visit Charges Inpatient E&M: 17357 Subs Hosp L2
[2021-08-09] MEDS: Enoxaparin 40 MG/0.4 ML Syringe SC (08:23)
[2021-08-09] MEDS: Clopidogrel Bisulfate 75 MG Tablet PO (08:24)
[2021-08-09] MEDS: Isosorbide Mononitrate 60 MG Tablet PO (08:24)
[2021-08-09] MEDS: Aspirin E.C. 81 MG Tablet PO (08:24)
[2021-08-09] MEDS: Pantoprazole Sodium 40 MG Tablet PO (08:24)
[2021-08-09] MEDS: Metoprolol Tartrate 25 MG Tablet 12.5 MG PO ×2 (08:24→20:12)
--- NOTE | 2021-08-09 08:30 | RAD_ITS ---
STUDY: X-RAY - ABDOMEN/PELVIS REASON FOR EXAM: Female, 71 years old. Of abdominal bloating TECHNIQUE: AP supine and upright views of the abdomen and pelvis. COMPARISON: None. FINDINGS: Nonspecific gaseous small bowel loops and colon. There is no demonstrated free abdominal air. No abnormal calcifications are seen. Normal soft tissue structures. Mild degenerative changes in the spine. RAD/Abd Inc Decub and/or Erect IMPRESSION: Nonspecific gas pattern. Electronically Signed: Hola Rayo, at 10:11 EST Tel , Service support ,
[2021-08-09] MEDS: Senna/Docusate Sodium 1 Tablet 2 TABLET PO ×2 (08:31→20:13)
[2021-08-09] MEDS: ALPRAZolam 0.25 MG Tablet PO ×2 (08:31→20:11)
[2021-08-09 11:26] LABS: Bedside Glucose 175 mg/dL (70-110)
[2021-08-09] MEDS: busPIRone 5 MG Tablet 10 MG PO ×2 (11:49→20:11)
[2021-08-09] MEDS: Insulin Lispro 100 UNIT/ML INSULN.PEN 10 UNIT SC ×2 (11:50→16:17)
[2021-08-09 16:05] LABS: Bedside Glucose 226 mg/dL (70-110)
[2021-08-09] MEDS: Atorvastatin Calcium 80 MG Tablet PO (20:12)
[2021-08-09] MEDS: guaiFENesin 1,200 MG Tablet 1200 MG PO (20:12)
[2021-08-09] MEDS: RisperiDONE 1 MG Tablet PO (20:13)
[2021-08-09 20:26] LABS: Bedside Glucose 277 mg/dL (70-110)
[2021-08-10 03:19] VITALS: BP 135/63; PULSE 82; RESP 20; TEMP 36.8; O2SAT 98
[2021-08-10 05:14] LABS: Absolute Lymphocyte Count 1.68 X10^3/uL (0.83-4.51); Absolute Neutrophil Count 6.2 X10^3/uL (2.0-7.7); Basophil# 0.06 X10^3/uL; Basophil% 0.7 % (0-1); Eosinophil# 0.25 X10^3/uL; Eosinophils% 2.9 % (0-5); Hematocrit 31.7 % (37-47); Hemoglobin 9.4 g/dL (12.0-15.0); Lymphocyte # 1.68 X10^3/ul (0.83-4.51); Lymphocyte % 19.2 % (19-41); Mean Corp Hgb Conc 29.7 g/dL (32-36); Mean Corpuscular Hgb 25.6 pg (27.0-32.0); Mean Corpuscular Volume 86.4 fL (81-99); Monocyte# 0.55 X10^3/uL; Monocyte% 6.3 % (0-10); NRBC Flagged by Analyzer 0 % (0-5); Neutrophil # 6.19 X10^3/uL (2.7-7.7); Neutrophil % 70.4 % (47-70); Platelet Count 311 K/mm3 (150-450); RBC Distribution Width CV 13.2 % (11.6-14.6); RBC Distribution Width SD 41.1 fl (35.1-43.9); Red Blood Count 3.67 M/mm3 (4.2-5.4); White Blood Count 8.8 K/mm3 (4.4-11.0)
[2021-08-10 05:41] LABS: Anion Gap 7 (5-15); BUN 10 mg/dL (7-18); BUN/Creat Ratio 11.2 RATIO (10-20); Calcium,Total 9.3 mg/dL (8.5-10.1); Chloride 101 mmol/L (98-107); Creatinine, Serum 0.89 mg/dL (0.55-1.02); EST Glomerular Filtration Rate 67 mL/min (>60); Est Glom Filt Rate - Afr Amer 80 mL/min (>60); Estimated Creatinine Clearance 46.52 ml/min; Glucose 201 mg/dL (74-106); Potassium 3.7 mmol/L (3.5-5.1); Sodium Level 141 mmol/L (136-145)
[2021-08-10] MEDS: Insulin Lispro 100 UNIT/ML INSULN.PEN SC (07:41)
[2021-08-10] MEDS: Insulin Lispro 100 UNIT/ML INSULN.PEN 10 UNIT SC (07:41)
[2021-08-10 07:46] LABS: Bedside Glucose 206 mg/dL (70-110)
--- NOTE | 2021-08-10 07:51 | PN.HOSP_ITS ---
Subjective Subjective Abdominal x-ray reviewed yesterday and showed nonspecific gas. Patient also moved bowel after starting stool softeners. She did not use BiPAP last night Objective Data Objective Data Vital Signs: Vital Signs Temp Pulse Resp BP Pulse Ox 98.3 F 82 20 H 135/63 H 98 08/10/21 03:19 08/10/21 03:19 08/10/21 03:19 08/10/21 03:19 08/10/21 03:19 Oxygen Flow Rate (L/min) 4 Oxygen Delivery Method Nasal Cannula Weight: 220 lb 14.451 oz Body Mass Index (BMI) 41.3 Intake & Output: Intake and Output for Last 24 Hours 08/08/21 08/09/21 08/10/21 23:59 23:59 23:59 Intake Total 255 / 495 240 / 240 Output Total 1500 / 1500 Balance 255 / 495 -1260 / -1260 Lab / Micro Data Result Diagrams: 08/10/21 04:50 08/10/21 04:50 Labs: Laboratory Results - last 24 hr 08/09/21 11:17: POC Glucose 175 H 08/09/21 15:56: POC Glucose 226 H 08/09/21 20:19: POC Glucose 277 H 08/10/21 04:50: WBC 8.8, RBC 3.67 L, Hgb 9.4 L, Hct 31.7 L, MCV 86.4, MCH 25.6 L , MCHC 29.7 L, RDW Std Deviation 41.1, RDW Coeff of [place] 13.2, Plt Count 311, MPV 11.0, Immature Gran % (Auto) 0.500, Neut % (Auto) 70.4 H, Lymph % (Auto) 19.2, [place] % (Auto) 6.3, Eos % (Auto) 2.9, Baso % (Auto) 0.7, Absolute Neuts (auto) 6.2, Absolute Lymphs (auto) 1.68, Nucleated RBC % 0 08/10/21 04:50: Sodium 141, Potassium 3.7, Chloride 101, Carbon Dioxide 33.0 H, Anion Gap 7, BUN 10, Creatinine 0.89, Estim Creat Clear Calc 46.52, Est GFR (MDRD) Af Amer 80, Est GFR (MDRD) Non-Af 67, BUN/Creatinine Ratio 11.2, Glucose 201 H, Calcium 9.3 08/10/21 07:40: POC Glucose 206 H Micro: Microbiology 08/09/21 10:56 Mucosa - Nasopharyngeal Rapid RSV (DFA) - Final 08/09/21 10:56 Mucosa - Nasopharyngeal Influenza Types A,B Direct FA (MARY) - Final 08/08/21 23:17 Nasal Secretion SARS-CoV-2 Antigen (Rapid) - Final Radiography Diagnostic Testing: Radiology Impression Abdomen X-Ray 08/09/21 08:30 IMPRESSION: Nonspecific gas pattern. Electronically Signed: Hola Rayo, at 10:11 EST Tel , Service support , Physical Exam Narrative General: Alert, Oriented x3, Cooperative HEENT: Atraumatic, PERRLA, EOMI, Normocephalic Oral: No Gingival or Mucosal Lesions/ Ulcerations Neck: Supple, No JVD, Negative Carotid Bruits Lungs: Air entry equal in bilateral lung bases. No crepitation/rhonchi. Lung sounds clear Cardiovascular: Regular rate, Regular Rhythm, Normal S1, Normal S2, No murmurs Abdomen: Mild upper abdominal distention. Bowel sounds sluggish Soft, Non Tender : No renal angle tenderness. No suprapubic tenderness. Extremities: No edema, Capillary Refill Less than 3 Seconds Skin: No rashes, No breakdown Musculoskeletal: No Tenderness to Palpation of Joints or Extremities Neurological: Cranial nerves II-XII grossly intact, DTR 2+/4 and Symmetrical, Neuro grossly intact Psych/Mental Status: Anxiety with panic attack Assessment & Plan Assessment/Plan (1) Type 2 diabetes mellitus: QUALIFIERS: Diabetes mellitus complication status: with hyperglycemia Diabetes mellitus halfway insulin use: with watermaster use Qualified Code(s): E11.65 - Type 2 diabetes mellitus with hyperglycemia; Z79.4 - terminal operator (current) use of insulin (2) Smoking greater than 40 pack years: (3) Chronic respiratory failure: QUALIFIERS: Respiratory failure complication: hypoxia Qualified Code(s): J96.11 - Chronic respiratory failure with hypoxia (4) Hypertension: QUALIFIERS: Hypertension type: essential hypertension Qualified Code(s): I10 - Essential (primary) hypertension (5) Acute and chronic respiratory failure with hypoxia: PLAN: Acute on chronic hypoxic respiratory failure probably due to COPD exacerbation probably viral bronchitis: Chest x-ray shows prominence of right lower lobe and left lower lobe infiltrate but clinically she does not have fever, significant cough or sputum production. She had more than a Covid vaccine and booster dose. She also had 5 days of azithromycin and 7 days of doxycycline as an outpatient treatment therefore will hold on further antibiotic. RSV and flu panel ordered. Patient had echo in July 2020 shows EF 60%, mild MR, mild TR, RVSP 37 mmHg. Clinically does not have signs and symptoms of CHF exacerbation. Increased alprazolam home dose 0.25 twice daily as needed and BuSpar 10 mg twice daily. On ipratropium. Upper abdominal bloating/dyspeptic symptoms: Probably due to constipation. X- ray abdomen erect and supine ordered. On stool softeners. HTN - Resume home meds Diabetes mellitus type II: Accu-Cheks glucose is uncontrolled and high. Started on Humalog 10 units subcutaneous 3 times daily AC. Lantus insulin dose increased. Carb controlled diet. Full code Lovenox for DVT prophylaxis
[2021-08-10] MEDS: Clopidogrel Bisulfate 75 MG Tablet PO (09:07)
[2021-08-10] MEDS: Isosorbide Mononitrate 60 MG Tablet PO (09:08)
[2021-08-10] MEDS: Pantoprazole Sodium 40 MG Tablet PO (09:08)
[2021-08-10] MEDS: Senna/Docusate Sodium 1 Tablet 2 TABLET PO (09:08)
[2021-08-10] MEDS: busPIRone 5 MG Tablet 10 MG PO (09:08)
[2021-08-10] MEDS: Enoxaparin 40 MG/0.4 ML Syringe SC (09:09)
[2021-08-10] MEDS: Aspirin E.C. 81 MG Tablet PO (09:09)
--- NOTE | 2021-08-10 09:18 | PCM.DC ---
Discharge Instructions Diet Discharge Diet: Low fat / Low cholesterol, 1800 Calorie Control Diet and 2000 mg Sodium Diet Activity Discharge Activity: Return to Normal Activity and May Not Drive Weight Bearing Status: Weight bearing as tolerated Dressing / Incision Call your doctor if you observe: Fever of 101 or Higher, Coldness, Increased Pain, Numbness or Tingling, Change in Color, Inability to urinate, Inability to have a bowel movement, Shortness of breath, Dizziness, Fainting spells, Swelling in the ankles, Chest pain, Prolonged hiccupping, Increased palpitations (irregular heartbeat), Calf discomfort and Uncontrolled pain Follow Up Care Test Results: Test results from this visit will be discussed in further detail at your follow-up appointment, if applicable. Discharge Plan Admission Admit Date/Time: 08/09/21 02:42 Primary Reason for Your Visit: COPD exacerbation Attending Provider: Nico Sweet Primary Care Provider: Billy Madera Discharge Orders/Prescriptions Prescriptions: New buspirone 5 mg Tablet 10 mg PO BID Qty: 60 RF: 0 Mucus Relief ER 1,200 mg Tablet Extended Release 12hr 1,200 mg PO BID Qty: 14 RF: 0 dexamethasone 6 mg tablet 6 mg PO DAILY Qty: 5 RF: 0 Continued nitroglycerin 0.4 mg tablet, sublingual 0.4 mg SUBLINGUAL Q5-15M Qty: 25 RF: 3 (DME) pen needle, diabetic 32 gauge x 5/32 needle See Rx Instructions ea .ROUTE .MEDSUPPLY Qty: 50 RF: 0 (DME) Handicap Placard See Rx Instructions .ROUTE .MEDSUPPLY Qty: 1 RF: 0 fluticasone propionate [Flonase Allergy Relief] 50 mcg/actuation spray,suspension 1 spray intranasal DAILY Qty: 16 RF: 4 clobetasol 0.05 % cream 1 applic topical BID 14 Days Qty: 60 RF: 2 acetaminophen 500 MG tablet 1,000 mg PO TID PRN (Reason: Pain Or Fever) Qty: 1 RF: 0 insulin lispro [Humalog KwikPen Insulin] 100 unit/mL insulin pen 10 unit SC TID Qty: 0 RF: 0 ipratropium-albuterol 0.5 mg-3 mg(2.5 mg base)/3 mL solution for nebulization 3 ml INHALATION Q4H PRN PRN (Reason: SOB &/OR WHEEZING) Qty: 180 RF: 6 clopidogrel 75 mg tablet 75 mg PO DAILY Qty: 90 RF: 3 (DME) Accu-Chek Aundrea Plus test strp Strip See Rx Instructions .ROUTE .MEDSUPPLY Qty: 100 RF: 8 atorvastatin 80 mg tablet 80 mg PO QHS Qty: 90 RF: 3 (DME) FreeStyle Emily 2 [place] Misc See Rx Instructions .ROUTE .MEDSUPPLY Qty: 1 RF: 0 (DME) FreeStyle Emily 2 Sensor Kit See Rx Instructions .ROUTE .MEDSUPPLY Qty: 2 RF: 12 albuterol sulfate 90 mcg/actuation HFA aerosol inhaler 2 puff INHALATION Q6H PRN (Reason: shortness of breath or wheezing) Qty: 18 RF: 3 calcipotriene 0.005 % cream 1 applic topical DAILY Qty: 120 RF: 0 metoprolol tartrate 25 mg tablet 12.5 mg PO BID Qty: 90 RF: 3 metformin 500 mg tablet extended release 24 hr 1,000 mg PO QPM Qty: 180 RF: 3 risperidone 1 mg tablet 1 mg PO QHS Qty: 90 RF: 1 isosorbide mononitrate 60 mg tablet extended release 24 hr 60 mg PO DAILY Qty: 30 RF: 11 pantoprazole 40 mg tablet,delayed release (DR/EC) 40 mg PO DAILY Qty: 90 RF: 1 alprazolam 0.25 mg tablet 0.25 mg PO DAILY PRN (Reason: Anxiety) Qty: 30 RF: 0 furosemide [Lasix] 20 mg tablet 20 mg PO DAILY Qty: 30 RF: 0 citalopram 40 mg tablet 40 mg PO QHS Qty: 90 RF: 1 Changed Basaglar KwikPen U-100 Insulin 100 unit/mL (3 mL) insulin pen 40 unit subcut DAILY 90 Days Qty: 32.4 RF: 3 Discontinued cefpodoxime 200 mg tablet 200 mg PO BID Qty: 14 RF: 0 Referrals / Follow Up: Haroon Nuno MD [STAFF PHYSICIAN] - Within 2 Weeks (For COPD exacerbation.) Billy Madera MD [Primary Care Provider] - In 1 Week (copd EXACERBATION) Disposition Disposition (needs filled in before D/C Order can be placed): Home, Self Care
--- NOTE | 2021-08-10 09:34 | DS.PCM_ITS ---
Providers Date of Admission: 08/09/21 Primary Care Physician: Dr. 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 use Diabetes mellitus complication status: with hyperglycemia Qualified Code(s): E11.65 - Type 2 diabetes mellitus with hyperglycemia; Z79.4 - retirement (current) use of insulin (2) Smoking greater than 40 pack years: Status: Chronic Code(s): F17.210 - Nicotine dependence, cigarettes, uncomplicated (3) Chronic respiratory failure: Status: Chronic Code(s): J96.10 - Chronic respiratory failure, unspecified whether with hypoxia or hypercapnia Qualifiers: Respiratory failure complication: hypoxia Qualified Code(s): J96.11 - Chronic respiratory failure with hypoxia (4) Hypertension: Status: Chronic Code(s): I10 - Essential (primary) hypertension Qualifiers: Hypertension type: essential hypertension Qualified Code(s): I10 - Essential (primary) hypertension (5) Acute and chronic respiratory failure with hypoxia: Status: Chronic Code(s): J96.21 - Acute and chronic respiratory failure with hypoxia Medications at Discharge Home Medications acetaminophen 1,000 mg PO TID PRN #1 tab 03/16/20 ipratropium 0.5 mg-albuterol 3 mg (2.5 mg base)/3 mL nebulization soln 3 ml INHALATION Q4H PRN PRN #180 ml 07/11/20 nitroglycerin 0.4 mg sublingual tablet 0.4 mg SUBLINGUAL Q5-15M #25 tab 08/13/20 clopidogrel 75 mg tablet 75 mg PO DAILY #90 tab 10/08/20 blood sugar diagnostic #100 each 11/05/20 pen needle, diabetic 32 gauge x 5/32 #50 ea 12/06/20 atorvastatin 80 mg tablet 80 mg PO QHS #90 tab 12/09/20 Handicap Placard #1 ea 12/12/20 flash glucose scanning reader #1 ea 01/31/21 flash glucose sensor #2 ea 01/31/21 albuterol sulfate 90 mcg/actuation aerosol inhaler 2 puff INHALATION Q6H PRN #18 g 02/06/21 calcipotriene 0.005 % topical cream 1 applic TOPICAL DAILY #120 g 03/07/21 clobetasol 0.05 % topical cream 1 applic TOPICAL BID 14 Days #60 g 03/10/21 metoprolol tartrate 25 mg tablet 12.5 mg PO BID #90 tab 04/25/21 fluticasone propionate 50 mcg/actuation nasal spray,suspension 1 spray INTRANASAL DAILY #16 g 04/29/21 metformin 500 mg tablet,extended release 24 hr 1,000 mg PO QPM #180 tab 06/10/21 risperidone 1 mg tablet 1 mg PO QHS #90 tab 06/11/21 isosorbide mononitrate 60 mg tablet,extended release 24 hr 60 mg PO DAILY #30 tab 06/20/21 pantoprazole 40 mg tablet,delayed release 40 mg PO DAILY #90 tab 07/10/21 alprazolam 0.25 mg tablet 0.25 mg PO DAILY PRN #30 tab 07/16/21 furosemide 20 mg tablet 20 mg PO DAILY #30 tab 07/21/21 citalopram 40 mg tablet 40 mg PO QHS #90 tab 07/23/21 Basaglar KwikPen U-100 Insulin 40 unit SUBCUT DAILY 90 Days #32.4 ml 08/10/21 buspirone 10 mg PO BID #60 tab 08/10/21 dexamethasone 6 mg PO DAILY #5 tab 08/10/21 guaifenesin [Mucus Relief ER] 1,200 mg PO BID #14 tab 08/10/21 insulin lispro [Humalog KwikPen Insulin] 10 unit SC TID #0 ml 08/10/21 Hospital Course Summary of Care Provided Hospital Course: This 71-year-old female with history of COPD, heart failure on baseline 5 L of home oxygen was admitted with progressive worsening of shortness of breath, wheezing, anxiety and panic attack and hypoxia 88% on 5 L of home oxygen. Patient was admitted to [facility] 1 Acute on chronic hypoxic respiratory failure probably due to COPD exacerbation probably viral bronchitis: Chest x-ray shows prominence of right lower lobe and left lower lobe infiltrate but clinically she does not have fever, significant cough or sputum production. She had more than a Covid vaccine and booster dose. She also had 5 days of azithromycin and 7 days of doxycycline as an outpatient treatment therefore further antibiotic not indicated when patient did not have fever or other signs of active infection RSV and flu panel negative. Patient had echo in July 2020 shows EF 60%, mild MR, mild TR, RVSP 37 mmHg. Clinically does not have signs and symptoms of CHF exacerbation. Increased alprazolam home dose 0.25 twice daily as needed and BuSpar 10 mg twice daily. On ipratropium. Currently patient is on baseline home oxygen, actually better on 4 L of oxygen. Patient has mood swing/anxiety on prednisone therefore discharged on dexamethasone 6 mg daily, equivalent dose of prednisone 40 mg daily for 5 days. Patient on Protonix 2. Upper abdominal bloating/dyspeptic symptoms: Probably due to constipation. Abdominal x-ray shows nonspecific gas pattern. Patient on senna S, psyllium [id number]. HTN - Resume home meds Diabetes mellitus type II: Accu-Cheks glucose is uncontrolled and high. Carb controlled diet. Dose of Humalog insulin and home Basaglar insulin increased Full code Lovenox for DVT prophylaxis Discharge medication reconciliation done. Discharge follow-up instructions completed. Discharge process discussed with the patient and all questions were answered to patient's satisfaction. Total time spent, exact 35 minutes on discharge meds reconciliation, examination, coordination of care with nurses and ancillary staff, review of imaging and blood test and discussion with the patient on follow-up instructions Physical Exam Narrative Seen and examined Abdominal x-ray reviewed yesterday and showed nonspecific gas. Patient also moved bowel after starting stool softeners. She did not use BiPAP last night General: Alert, Oriented x3, Cooperative HEENT: Atraumatic, PERRLA, EOMI, Normocephalic Oral: No Gingival or Mucosal Lesions/ Ulcerations Neck: Supple, No JVD, Negative Carotid Bruits Lungs: Air entry equal in bilateral lung bases. No crepitation/rhonchi. Lung sounds clear Cardiovascular: Regular rate, Regular Rhythm, Normal S1, Normal S2, No murmurs Abdomen: Mild upper abdominal distention. Bowel sounds sluggish Soft, Non Tender : No renal angle tenderness. No suprapubic tenderness. Extremities: No edema, Capillary Refill Less than 3 Seconds Skin: No rashes, No breakdown Musculoskeletal: No Tenderness to Palpation of Joints or Extremities Neurological: Cranial nerves II-XII grossly intact, DTR 2+/4 and Symmetrical, Neuro grossly intact Psych/Mental Status: Anxiety with panic attack, much improved on Xanax and BuSpar Weight / BMI Weight Weight: 220 lb 14.451 oz Body Mass Index (BMI) 41.3 ABG / Lab / Microbiology Data Result Diagrams: 08/10/21 04:50 08/10/21 04:50 Laboratory: Laboratory Results - last 24 hr 08/09/21 11:17: POC Glucose 175 H 08/09/21 15:56: POC Glucose 226 H 08/09/21 20:19: POC Glucose 277 H 08/10/21 04:50: WBC 8.8, RBC 3.67 L, Hgb 9.4 L, Hct 31.7 L, MCV 86.4, MCH 25.6 L , MCHC 29.7 L, RDW Std Deviation 41.1, RDW Coeff of Malcom 13.2, Plt Count 311, MPV 11.0, Immature Gran % (Auto) 0.500, Neut % (Auto) 70.4 H, Lymph % (Auto) 19.2, [place] % (Auto) 6.3, Eos % (Auto) 2.9, Baso % (Auto) 0.7, Absolute Neuts (auto) 6.2, Absolute Lymphs (auto) 1.68, Nucleated RBC % 0 08/10/21 04:50: Sodium 141, Potassium 3.7, Chloride 101, Carbon Dioxide 33.0 H, Anion Gap 7, BUN 10, Creatinine 0.89, Estim Creat Clear Calc 46.52, Est GFR (MDRD) Af Amer 80, Est GFR (MDRD) Non-Af 67, BUN/Creatinine Ratio 11.2, Glucose 201 H, Calcium 9.3 08/10/21 07:40: POC Glucose 206 H Microbiology: Microbiology 08/09/21 10:56 Mucosa - Nasopharyngeal Rapid RSV (DFA) - Final 08/09/21 10:56 Mucosa - Nasopharyngeal Influenza Types A,B Direct FA (MARY) - Final 08/08/21 23:17 Nasal Secretion SARS-CoV-2 Antigen (Rapid) - Final Radiography Diagnostic Testing: Radiology Impression Abdomen X-Ray 08/09/21 08:30 IMPRESSION: Nonspecific gas pattern. Electronically Signed: Hola Rayo, at 10:11 EST Tel , Service support , D/C Instructions Discharge Diet: Low fat / Low cholesterol, 1800 Calorie Control Diet and 2000 mg Sodium Diet Weight Bearing Status: Weight bearing as tolerated Call your doctor if you observe: Fever of 101 or Higher, Coldness, Increased Pain, Numbness or Tingling, Change in Color, Inability to urinate, Inability to have a bowel movement, Shortness of breath, Dizziness, Fainting spells, Swelling in the ankles, Chest pain, Prolonged hiccupping, Increased palpitations (irregular heartbeat), Calf discomfort and Uncontrolled pain Meaningful Use Info Meaningful Use Diagnoses (Choose all that apply): None applicable Discharge Plan Admission Admit Date/Time: 08/09/21 02:42 Primary Reason for Your Visit: COPD exacerbation Attending Provider: Nico Sweet Primary Care Provider: Billy Madera Discharge Orders/Prescriptions Prescriptions: New buspirone 5 mg Tablet 10 mg PO BID Qty: 60 RF: 0 Mucus Relief ER 1,200 mg Tablet Extended Release 12hr 1,200 mg PO BID Qty: 14 RF: 0 dexamethasone 6 mg tablet 6 mg PO DAILY Qty: 5 RF: 0 Continued nitroglycerin 0.4 mg tablet, sublingual 0.4 mg SUBLINGUAL Q5-15M Qty: 25 RF: 3 (DME) pen needle, diabetic 32 gauge x 5/32 needle See Rx Instructions ea .ROUTE .MEDSUPPLY Qty: 50 RF: 0 (DME) Handicap Placard See Rx Instructions .ROUTE .MEDSUPPLY Qty: 1 RF: 0 fluticasone propionate [Flonase Allergy Relief] 50 mcg/actuation spray,suspension 1 spray intranasal DAILY Qty: 16 RF: 4 clobetasol 0.05 % cream 1 applic topical BID 14 Days Qty: 60 RF: 2 acetaminophen 500 MG tablet 1,000 mg PO TID PRN (Reason: Pain Or Fever) Qty: 1 RF: 0 insulin lispro [Humalog KwikPen Insulin] 100 unit/mL insulin pen 10 unit SC TID Qty: 0 RF: 0 ipratropium-albuterol 0.5 mg-3 mg(2.5 mg base)/3 mL solution for nebulization 3 ml INHALATION Q4H PRN PRN (Reason: SOB &/OR WHEEZING) Qty: 180 RF: 6 clopidogrel 75 mg tablet 75 mg PO DAILY Qty: 90 RF: 3 (DME) Accu-Chek Aundrea Plus test strp Strip See Rx Instructions .ROUTE .MEDSUPPLY Qty: 100 RF: 8 atorvastatin 80 mg tablet 80 mg PO QHS Qty: 90 RF: 3 (DME) FreeStyle Emily 2 [place] Misc See Rx Instructions .ROUTE .MEDSUPPLY Qty: 1 RF: 0 (DME) FreeStyle Emily 2 Sensor Kit See Rx Instructions .ROUTE .MEDSUPPLY Qty: 2 RF: 12 albuterol sulfate 90 mcg/actuation HFA aerosol inhaler 2 puff INHALATION Q6H PRN (Reason: shortness of breath or wheezing) Qty: 18 RF: 3 calcipotriene 0.005 % cream 1 applic topical DAILY Qty: 120 RF: 0 metoprolol tartrate 25 mg tablet 12.5 mg PO BID Qty: 90 RF: 3 metformin 500 mg tablet extended release 24 hr 1,000 mg PO QPM Qty: 180 RF: 3 risperidone 1 mg tablet 1 mg PO QHS Qty: 90 RF: 1 isosorbide mononitrate 60 mg tablet extended release 24 hr 60 mg PO DAILY Qty: 30 RF: 11 pantoprazole 40 mg tablet,delayed release (DR/EC) 40 mg PO DAILY Qty: 90 RF: 1 alprazolam 0.25 mg tablet 0.25 mg PO DAILY PRN (Reason: Anxiety) Qty: 30 RF: 0 furosemide [Lasix] 20 mg tablet 20 mg PO DAILY Qty: 30 RF: 0 citalopram 40 mg tablet 40 mg PO QHS Qty: 90 RF: 1 Changed Basaglar KwikPen U-100 Insulin 100 unit/mL (3 mL) insulin pen 40 unit subcut DAILY 90 Days Qty: 32.4 RF: 3 Discontinued cefpodoxime 200 mg tablet 200 mg PO BID Qty: 14 RF: 0 Referrals / Follow Up: Haroon Nuno MD [STAFF PHYSICIAN] - Within 2 Weeks (For COPD exacerbation.) Billy Madera MD [Primary Care Provider] - In 1 Week (copd EXACERBATION) Disposition Disposition (needs filled in before D/C Order can be placed): Home, Self Care Charges/Coding Visit Charges Inpatient E&M: 89875 Disch Hosp
[2021-08-10 09:39] VITALS: O2SAT 96
[2021-08-10 10:00] VITALS: RESP 18
[2021-08-10 10:04] VITALS: BP 116/76; PULSE 66
[2021-08-10] MEDS: Metoprolol Tartrate 25 MG Tablet 12.5 MG PO (10:04)
[2021-08-10 10:05] VITALS: BP 116/76; PULSE 66; RESP 18; TEMP 36.8; O2SAT 98
--- NOTE | 2021-08-10 10:38 | PCA ---
Transportation set up for patient to go home via wheelchair [facility]. ETA 11:30.
[2021-08-10 11:10] VITALS: BP 128/70; PULSE 60; RESP 18; TEMP 36.8; O2SAT 99
--- NOTE | 2021-08-10 12:15 | CASEMGMT ---
HARLEEN CM NOTE: Pt meets for Palliative referral per screening tool d/t COPD and chronic Home O2 use. Dr Sweet made aware and is agreeable to Palliative referral for them to f/u with pt as an OP, as pt is being discharged today. Order placed. Sim STORY RN CM
== END 2021-08-10 12:07 | disposition home or self-care (01) ==
LOC: ED 08-09 01:11 → MS2 08-09 03:09
PROVIDERS: Admitting Provider Hospitalist; Emergency Provider Emergency Medicine; PCP Internal Medicine; Visit Provider Internal Medicine
DX: J44.1 Chronic obstructive pulmonary disease with (acute) exacerbation (principal); I11.0 Hypertensive heart disease with heart failure; I50.9 Heart failure, unspecified; E11.65 Type 2 diabetes mellitus with hyperglycemia; J96.21 Acute and chronic respiratory failure with hypoxia; Z79.4 Long term (current) use of insulin; F17.210 Nicotine dependence, cigarettes, uncomplicated; E78.5 Hyperlipidemia, unspecified; I25.10 Atherosclerotic heart disease of native coronary artery without angina pectoris; G47.33 Obstructive sleep apnea (adult) (pediatric); F32.A Depression, unspecified; Z79.899 Other long term (current) drug therapy; Z79.02 Long term (current) use of antithrombotics/antiplatelets; R14.0 Abdominal distension (gaseous)
CPT/HCPCS: 96365; 96372 ×2; 96375; 36415; 71045; 74019; 80048; 82962; 83880; 84484; 85025; 87426; 87804; 87807; 93005; 94002; 94003; 94640; 94667; 97802; 99218; 99251; 99285; J7050; A4216; G0378; G0463; J1940

== ENCOUNTER 2021-08-10 18:12 | Inpatient (IN) | payer MEDICARE, SELFPAY ==
[2021-03-07 16:44] VITALS: BMI 34.9
[2021-08-10 18:13] VITALS: BP 138/77; PULSE 87; RESP 48; TEMP 36.7; O2SAT 100; BMI 40.2
[2021-08-10 18:51] VITALS: BP 139/63; PULSE 89; RESP 21; O2SAT 96
[2021-08-10 18:53] VITALS: O2SAT 96
--- NOTE | 2021-08-10 20:58 | EKG12_ITS ---
Test Reason : DYSRHYTHMIA Blood Pressure : / mmHG Vent. Rate : 078 BPM Atrial Rate : 078 BPM P-R Int : 154 ms QRS Dur : 082 ms QT Int : 428 ms P-R-T Axes : 050 005 030 degrees QTc Int : 487 ms Sinus rhythm with Premature supraventricular complexes Otherwise normal ECG Confirmed by RAMIREZ MELVIN, ARPITA ([id number]), state editor LEILA AGUILERA ([id number]) on 08/13/2021 10:34:18 AM Referred By: ELENA Confirmed By:ARPITA GUZMÁN MD
--- NOTE | 2021-08-10 20:58 | RAD_ITS ---
INDICATION: chest pain EXAMINATION/TECHNIQUE: X-RAY - XR Chest 1 View COMPARISON: 08/08/2021. FINDINGS: Unchanged to slight improvement in patchy bibasilar airspace opacities. The cardiomediastinal silhouette is stable. No pleural effusion or pneumothorax. The osseous structures are unchanged. RAD/Chest 1 View (Portable) IMPRESSION: Unchanged to slight improvement in patchy bibasilar airspace opacities. Electronically Signed: Ranjeet Dong MD at 21:54 EST Tel , Service support ,
--- NOTE | 2021-08-10 20:59 | EDS_ITS ---
HPI History of Present Illness Chief Complaint: Shortness of Breath Informant: patient Narrative Narrative: Patient had an episode of dyspnea and palpitations at home. She evidently has been having these. She was having these in the hospital. She was started on buspirone because they thought there was a significant component of anxiety. She is also on alprazolam. Patient was just discharged from the hospital today for COPD exacerbation. She was feeling well. She went home. She was on her 5 L of oxygen which is normal. She felt a bit anxious. She took buspirone and that made her more anxious. She talked to her nurse line. They recommend she take alprazolam. Her dose is only 0.25 mg. She tried this and it did not help after an hour. However, she feels back to normal now. She states her heart was racing. When I asked her how fast it was going. She states it was going 111 at one time. The second time she took it was going at 84 beats per minute. [facility] Medical History Asthma with COPD Atherosclerotic heart disease of [place] coronary artery without angina pectoris Back pain Bilateral pneumonia CHF (congestive heart failure) Chronic respiratory failure COPD (chronic obstructive pulmonary disease) Depression Diabetes Former smoker Health care maintenance Heart disease Hepatitis History of constipation HLD (hyperlipidemia) Hypertension Lung disease MARK (obstructive sleep apnea) Pneumonia Psoriasis SOB (shortness of breath) Home Medications acetaminophen 1,000 mg PO TID PRN #1 tab 03/16/20 [Rx Last Taken 08/08/21] ipratropium 0.5 mg-albuterol 3 mg (2.5 mg base)/3 mL nebulization soln 3 ml INHALATION Q4H PRN PRN #180 ml 07/11/20 [Rx Last Taken 07/15/20 18:00] nitroglycerin 0.4 mg sublingual tablet 0.4 mg SUBLINGUAL Q5-15M #25 tab 08/13/20 [Rx Last Taken Unknown] clopidogrel 75 mg tablet 75 mg PO DAILY #90 tab 10/08/20 [Rx Last Taken ] blood sugar diagnostic #100 each 11/05/20 [Rx Last Taken Unknown] pen needle, diabetic 32 gauge x #50 ea 12/06/20 [History Last Taken Unknown] atorvastatin 80 mg tablet 80 mg PO QHS #90 tab 12/09/20 [Rx Last Taken 08/08/21] Handicap Placard #1 ea 12/12/20 [Rx Last Taken Unknown] flash glucose scanning reader #1 ea 01/31/21 [Rx Last Taken Unknown] flash glucose sensor #2 ea 01/31/21 [Rx Last Taken Unknown] albuterol sulfate 90 mcg/actuation aerosol inhaler 2 puff INHALATION Q6H PRN #18 g 02/06/21 [Rx Last Taken Unknown] calcipotriene 0.005 % topical cream 1 applic TOPICAL DAILY #120 g 03/07/21 [Rx Last Taken Unknown] clobetasol 0.05 % topical cream 1 applic TOPICAL BID 14 Days #60 g 03/10/21 [Rx Last Taken Unknown] metoprolol tartrate 25 mg tablet 12.5 mg PO BID #90 tab 04/25/21 [Rx Last Taken 08/08/21] fluticasone propionate 50 mcg/actuation nasal spray,suspension 1 spray INTRANASAL DAILY #16 g 04/29/21 [Rx Last Taken 08/08/21] metformin 500 mg tablet,extended release 24 hr 1,000 mg PO QPM #180 tab 06/10/21 [Rx Last Taken 08/08/21] risperidone 1 mg tablet 1 mg PO QHS #90 tab 06/11/21 [Rx Last Taken 08/08/21] isosorbide mononitrate 60 mg tablet,extended release 24 hr 60 mg PO DAILY #30 tab 06/20/21 [Rx Last Taken 08/08/21] pantoprazole 40 mg tablet,delayed release 40 mg PO DAILY #90 tab 07/10/21 [Rx Last Taken 08/08/21] alprazolam 0.25 mg tablet 0.25 mg PO DAILY PRN #30 tab 07/16/21 [Rx Last Taken 08/08/21] furosemide 20 mg tablet 20 mg PO DAILY #30 tab 07/21/21 [Rx Last Taken Unknown] citalopram 40 mg tablet 40 mg PO QHS #90 tab 07/23/21 [Rx Last Taken 08/08/21] Dorota Campbell U-100 Insulin 40 unit SUBCUT DAILY 90 Days #32.4 ml 08/10/21 [Rx Last Taken 08/08/21] buspirone 10 mg PO BID #60 tab 08/10/21 [Rx Last Taken Unknown] dexamethasone 6 mg PO DAILY #5 tab 08/10/21 [Rx Last Taken Unknown] guaifenesin [Mucus Relief ER] 1,200 mg PO BID #14 tab 08/10/21 [Rx Last Taken Unknown] insulin lispro [Humalog KwikPen Insulin] 10 unit SC TID #0 ml 08/10/21 [Rx Last Taken 08/08/21] Allergy/AdvReac Type Severity Reaction Status Date / Time amoxicillin [Amoxicillin] Allergy Intermediate Rash Verified 08/10/21 18:18 gabapentin [From Neurontin] Allergy Shortness Verified 08/10/21 18:18 of breath levofloxacin [From Levaquin] Allergy Hives Verified 08/10/21 18:18 pseudoephedrine HCl Allergy Shortness Verified 08/10/21 18:18 [From Sudafed] of breath red dye Allergy Hives Verified 08/10/21 18:18 prednisone AdvReac Severe mean mood Verified 08/10/21 18:18 codeine AdvReac HEADACHE Verified 08/10/21 18:18 Family History Brother Heart disease Mother Colon cancer Heart disease Surgical History History of cholecystectomy History of left heart catheterization (LHC) (~09/23/20) Stented coronary artery (12/28/18) Social History Smoking Status: Former smoker pack-years: 40 how long ago did patient quit smokin year ago alcohol intake: never substance use type: does not use caffeine: Yes Type: carbonated beverages and tea what type of physical activity do you participate in: none ROS ROS ED Constitutional Constitutional ED: Denies chills or fever(s) Eyes Eyes: Denies blurry vision ENT ENT ED: Denies rhinorrhea Cardiovascular Cardiovascular: Reports palpitations Respiratory/Chest Respiratory/Chest: Reports cough, dyspnea and other Gastrointestinal Gastrointestinal: Denies nausea or vomiting Genitourinary Genitourinary ED: Denies dysuria Musculoskeletal Musculoskeletal: Denies myalgias Integumentary Denies rash Neurologic Neurologic: Denies headache(s) Psychiatric Psychiatric: Reports anxiety; Denies depression Endocrine Endocrinology: Denies polydipsia or polyuria Allergic/Immunologic Allergic/Immunologic ED: Denies mouth swelling or urticaria EXAM Physical Exam Const Vital Signs: 08/10/21 18:13 08/10/21 18:51 08/10/21 18:53 Temperature 98.0 F Temperature Source Temporal Pulse Rate 87 89 Respiratory Rate 48 H 21 H Respiratory Effort Normal Non-Labored Respiratory Depth Normal Respiratory Pattern Hyperpnea Blood Pressure 138/77 H 139/63 H Blood Pressure Mean 97 88 Pulse Ox 100 96 Oxygen Delivery Method Room Air Nasal Cannula Nasal Cannula Oxygen Flow Rate (L/min) 5 5 Fraction of Inspired Oxygen (FIO2) 08/10/21 21:19 08/10/21 23:46 08/10/21 23:55 Temperature Temperature Source Pulse Rate 145 H 142 H Respiratory Rate 34 H 34 H Respiratory Effort Respiratory Depth Respiratory Pattern Blood Pressure Blood Pressure Mean Pulse Ox 72 93 Oxygen Delivery Method Nasal Cannula Nasal Cannula Non-Rebreather Oxygen Flow Rate (L/min) 5 5 15 Fraction of Inspired Oxygen (FIO2) 08/11/21 00:00 08/11/21 00:07 08/11/21 00:16 Temperature Temperature Source Pulse Rate 139 H 128 H 119 H Respiratory Rate 32 H 30 H 28 H Respiratory Effort Respiratory Depth Respiratory Pattern Tachypnea Blood Pressure 172/95 H 144/63 H Blood Pressure Mean 120 90 Pulse Ox 96 97 96 Oxygen Delivery Method Bi-pap Bi-pap Oxygen Flow Rate (L/min) Fraction of Inspired Oxygen (FIO2) 70 08/11/21 00:40 Temperature Temperature Source Pulse Rate 114 H Respiratory Rate 32 H Respiratory Effort Respiratory Depth Respiratory Pattern Tachypnea Blood Pressure Blood Pressure Mean Pulse Ox Oxygen Delivery Method Oxygen Flow Rate (L/min) Fraction of Inspired Oxygen (FIO2) Positive well nourished, well developed and obese General Appearance ED: well developed and NAD; Negative for cyanotic or diaphoretic Nutritional Appearance: obese HEENT Reports moist mucous membranes Eyes General Eye ED: Negative for pale conjunctiva Neck no JVD Chest Wall inspection of chest normal Resp normal respiratory effort and clear to auscultation bilaterally Resp Narrative: Despite her history, her lungs sound great. There is no wheezing. No rhonchi or rales. No pain with a deep breath. Effort and Inspection: Negative for pain with movement Auscultation: Negative for rales, rhonchi or wheezes Cardio regular rate and regular rhythm GI normal to inspection, nondistended, normoactive bowel sounds Back/Spine no CVA tenderness Extremity Extremity Narrative: Patient has mild edema but is at her baseline per the patient. General Extremety ED: Yes edema; Negative for tenderness General Extremity: edema Neuro oriented x3 Neuro Narrative: Patient still awake alert. She is not sleepy or lethargic in any way. Sensorium / Orientation: alert Psych mental status grossly normal Skin no rashes or lesions noted MDM MDM MDM Narrative Medical decision making narrative: There was some delay seeing the patient due to a very busy day. Also, I went back to see her and on the way new patient coming in by ambulance arrested. I had an extended time. In the room. When I saw the patient she is feeling well. She states she wants to go home. I explained that with her symptoms and history we should do some work-up. If she still feels well we can get her home at that time. Patient was doing well here. We got back blood work did show elevated troponin. This is a new finding as she has not had this before on her recent admission. She denied having pain now. When she had the palpitation she had some discomfort and dyspnea. However she has been having episodes like this that she thought was anxiety. Patient then told me that she has been spitting up some blood for the last 3 days. I do not know if she is told this to anyone else yet. She is on Plavix. But with this information, dyspnea and recent admission I did do a CAT scan of her chest. CT angiogram did not show any sign of a PE. About 20 minutes after coming back from her CTA, patient got very anxious. Her blood pressure went up. She went into what appeared to be a flash pulmonary edema. She has done this before. She states this is what got her in the hospital recently. Her sats dropped precipitously. She had 70% before we put her on higher oxygen. She then went up to about 91% on nonrebreather. We put her on BiPAP at 16 and 12. Her blood pressure also gone up to over 200. She sounded very wet. Repeat chest x-ray showed that she looks to be in pulmonary edema when the first chest x-ray looked much better. This was a marked change in x-ray. Patient is rechecked. Her heart rate is now down below 100 when it was up to 140. Her blood pressure is normalized. Her oxygen levels normalized. She is awake she is alert and she states she feels much better. She does use BiPAP at night all the time. She is known to do very well with BiPAP. We are turning this down now. I also did give her some Lasix here. We were going to give her nitroglycerin, but her blood pressure came down quite well with just BiPAP alone. With her worsening dyspnea, flash pulmonary edema, elevated troponin I think she does need to come back in the hospital again. Lab Data Labs: Laboratory Results - last 24 hr 08/10/21 08/10/21 08/11/21 21:18 21:18 00:14 WBC 9.9 RBC 3.63 L Hgb 9.4 L Hct 31.0 L MCV 85.4 MCH 25.9 L MCHC 30.3 L RDW Std Deviation 40.9 RDW Coeff of [place] 13.2 Plt Count 344 MPV 11.1 Immature Gran % (Auto) 0.400 Neut % (Auto) 76.8 H Lymph % (Auto) 13.3 L [place] % (Auto) 6.0 Eos % (Auto) 2.7 Baso % (Auto) 0.8 Absolute Neuts (auto) 7.6 Absolute Lymphs (auto) 1.32 Nucleated RBC % 0 Sodium 136 Potassium 4.1 Chloride 99 Carbon Dioxide 31.0 Anion Gap 6 BUN 15 Creatinine 0.99 Estim Creat Clear Calc 41.82 Est GFR (MDRD) Af Amer 72 Est GFR (MDRD) Non-Af 59 L BUN/Creatinine Ratio 15.2 Glucose 402 H Calcium 9.6 Troponin I High Sens 106 H POC Glucose 395 H Radiography Diagnostic Testing: Clinical Impression(s) from Imaging Studies Chest X-Ray 08/10/21 20:58 IMPRESSION: Unchanged to slight improvement in patchy bibasilar airspace opacities. Electronically Signed: Ranjeet Dong MD at 21:54 EST Tel , Service support , Chest CTA 08/10/21 23:14 IMPRESSION: 1. Tiny residual right pleural effusion. 2. No acute disease or new consolidation. 3. Multiple small right-sided nodules which are nonspecific. Suggest further evaluation with ultrasound if not already previously performed. Electronically Signed: Marko Norton MD at 0:16 EST Tel , Service support , Chest X-Ray 08/11/21 00:26 IMPRESSION: New bilateral pneumonia suspected although differential diagnosis would also include pulmonary edema or alveolar damage. Correlate clinically. Follow to resolution. Electronically Signed: Marko Norton MD at 1:22 EST Tel , Service support , Critical Care Time Critical Care Time: Yes Critical care time (excluding procedures): 30-74 minutes, Discussing w/Patient &/or Family/Risk Adjustment Specialist, Discussing w/Consultants, Arranging Admission or Transfer, Performing Direct Patient Care at Bedside and - (38 minutes, repeat evaluation, change in patient status, apply BiPAP, flash pulmonary edema, stabilized,) Discharge Plan Dx/Rx/DC Orders Clinical Impression: Flash pulmonary edema, Acute and chronic respiratory failure with hypoxia, Heart palpitations, Elevated troponin Disposition Disposition: Acute Care [facility]
[2021-08-10 21:25] LABS: Absolute Lymphocyte Count 1.32 X10^3/uL (0.83-4.51); Absolute Neutrophil Count 7.6 X10^3/uL (2.0-7.7); Basophil# 0.08 X10^3/uL; Basophil% 0.8 % (0-1); Eosinophil# 0.27 X10^3/uL; Eosinophils% 2.7 % (0-5); Hemoglobin 9.4 g/dL (12.0-15.0); Lymphocyte # 1.32 X10^3/ul (0.83-4.51); Lymphocyte % 13.3 % (19-41); Mean Corp Hgb Conc 30.3 g/dL (32-36); Mean Corpuscular Hgb 25.9 pg (27.0-32.0); Mean Corpuscular Volume 85.4 fL (81-99); Mean Platelet Vol. 11.1 fl (6.2-12.0); NRBC Flagged by Analyzer 0 % (0-5); Neutrophil # 7.63 X10^3/uL (2.7-7.7); Neutrophil % 76.8 % (47-70); Platelet Count 344 K/mm3 (150-450); RBC Distribution Width CV 13.2 % (11.6-14.6); RBC Distribution Width SD 40.9 fl (35.1-43.9); Red Blood Count 3.63 M/mm3 (4.2-5.4); White Blood Count 9.9 K/mm3 (4.4-11.0)
[2021-08-10 22:04] LABS: Anion Gap 6 (5-15); BUN 15 mg/dL (7-18); BUN/Creat Ratio 15.2 RATIO (10-20); Calcium,Total 9.6 mg/dL (8.5-10.1); Chloride 99 mmol/L (98-107); Creatinine, Serum 0.99 mg/dL (0.55-1.02); EST Glomerular Filtration Rate 59 mL/min (>60); Est Glom Filt Rate - Afr Amer 72 mL/min (>60); Estimated Creatinine Clearance 41.82 ml/min; Glucose 402 mg/dL (74-106); Potassium 4.1 mmol/L (3.5-5.1); Sodium Level 136 mmol/L (136-145); Troponin-I HS 106 pg/mL (3.0-54.0)
--- NOTE | 2021-08-10 23:14 | CT_ITS ---
EXAM: CT ANGIOGRAPHY CHEST WITHOUT AND WITH INTRAVENOUS CONTRAST CLINICAL INDICATION: Hemoptysis TECHNIQUE: Helically acquired angiography images were obtained of the chest without and with intravenous contrast. CTDIvol = ( 22.17 ) mGy, DLP = ( 580.62 ) mGycm This CT exam was performed using one or more of the following dose reduction techniques: automated exposure control, adjustment of the mA and/or kV according to patient size, and/or use of iterative reconstruction technique. This report was created using [employer] report generation technology. MIP reconstructed images were created and reviewed. CONTRAST: IV 100mL [id number] COMPARISON: Chest CT 05/09/2021. FINDINGS: PULMONARY ARTERIES: No PE. Normal in caliber. No evidence of pulmonary embolism. AORTA: No aortic aneurysm or dissection. GREAT VESSELS OF AORTIC ARCH: Unremarkable. Normal in caliber. No evidence of dissection. LUNGS AND PLEURAL SPACES: Previously identified left pleural effusion has resolved. Tiny residual right pleural effusion posteriorly. Scarring at the lower lobes an inferior lingula. Previous infectious foci appear to have resolved. No new consolidation. No pleural effusion or pneumothorax. No mass. HEART: Multivessel calcific coronary arteriosclerosis. No pericardial effusion. No signs of right heart strain, ratio of right ventricle to left ventricle measures less than 1. MEDIASTINUM: Unremarkable. No mediastinal or hilar adenopathy. Esophagus is unremarkable. No hiatal hernia. THYROID: Multiple small nonspecific right thyroid nodules. Diminutive left thyroid lobe. Suggest further investigation with ultrasound. BONES/JOINTS: No suspicious lytic or sclerotic lesions of bone. No critical central canal stenosis. LIVER: Multiple calcified granulomas of the liver and spleen. Small right hepatic cyst. CT/CTA Chest W/WO Contrast IMPRESSION: 1. Tiny residual right pleural effusion. 2. No acute disease or new consolidation. 3. Multiple small right-sided nodules which are nonspecific. Suggest further evaluation with ultrasound if not already previously performed. Electronically Signed: Marko Norton MD at 0:16 EST Tel , Service support ,
[2021-08-10 23:46] VITALS: PULSE 145; RESP 34; O2SAT 72
[2021-08-10 23:55] VITALS: PULSE 142; RESP 34; O2SAT 93
--- NOTE | 2021-08-10 23:59 | ED.RN ---
PATIENT CALLED OUT FOR HELP. THIS RN ENTERED ROOM, PATIENT IN RESPIRATORY DISTRESS. PATIENT STATES I CAN'T BREATHE. OXYGEN SATURATION IN THE 70'S. PATIENT PLACED ON NON REBREATHER AND DR. OCAMPO NOTIFIED. NEW ORDERS GIVEN. WILL CONTINUE TO MONITOR.
[2021-08-11] VITALS (22 sets, daily range): BP systolic 122–172; BP diastolic 56–110; PULSE 74–139; RESP 12–40; TEMP 36.3–37.1; O2SAT 20–100; BMI 40.7
[2021-08-11] MEDS: Insulin Lispro 100 UNIT/ML INSULN.PEN 10 UNIT SC (00:15)
[2021-08-11 00:21] LABS: Bedside Glucose 395 mg/dL (70-110)
--- NOTE | 2021-08-11 00:26 | RAD_ITS ---
EXAM: XR CHEST, 1 VIEW CLINICAL INDICATION: SOB TECHNIQUE: Frontal view of the chest. This report was created using [employer] report generation technology. COMPARISON: August 10 exam performed at 9:18 PM. FINDINGS: LUNGS AND PLEURAL SPACES: Bilateral heterogeneous ill-defined airspace disease with relative sparing of the left upper lobe. Possible diffuse emphysema particularly at the left upper lobe. No pneumothorax or pleural effusion. HEART: No cardiac enlargement. MEDIASTINUM: Possible right hilar reactive adenopathy. BONES/JOINTS: Degenerative changes of spine and acromial clavicular joints. SOFT TISSUES: Unremarkable. VASCULATURE: Atherosclerotic calcifications of the thoracic aorta which is not enlarged. RAD/Chest 1 View (Portable) IMPRESSION: New bilateral pneumonia suspected although differential diagnosis would also include pulmonary edema or alveolar damage. Correlate clinically. Follow to resolution. Electronically Signed: Marko Norton MD at 1:22 EST Tel , Service support ,
--- NOTE | 2021-08-11 00:26 | EKG12_ITS ---
Test Reason : DYSRHYTHMIA Blood Pressure : / mmHG Vent. Rate : 108 BPM Atrial Rate : 108 BPM P-R Int : 144 ms QRS Dur : 080 ms QT Int : 362 ms P-R-T Axes : 058 028 033 degrees QTc Int : 485 ms Sinus tachycardia Nonspecific ST abnormality Abnormal ECG Confirmed by BANG MELVIN, ROSALIA ([id number]), commercial production editor LEILA AGUILERA ([id number]) on 08/13/2021 11:03:30 AM Referred By: DIANE Confirmed By:ROSALIA CUENCA MD
[2021-08-11] MEDS: Ipratropium/Albuterol Sulfate 3 ML AMPUL.NEB INHALATION ×4 (00:40→17:40)
[2021-08-11] MEDS: Furosemide 40 MG/4 ML Vial IV ×3 (01:10→17:20)
[2021-08-11 01:51] LABS: BNP,B-Type NATRIURETIC PEPTIDE 103.9 pg/mL (0-100)
--- NOTE | 2021-08-11 02:20 | CPS ---
Pt. wished to take a break from BiPAP at this time. RN transitioned pt. to 5L NC, and pt. is maintaining appropriate oxygen saturations.
--- NOTE | 2021-08-11 02:41 | HP.PCM.HOS_ITS ---
[facility] - General General Date of Admission: 08/11/21 HPI Narrative TIM CEDILLO, is a 71 F with a significant history of asthma and COPD; CAD status post stents with last stent placed 3 to 4 years ago; former smoker; and obstructive sleep apnea who was discharged from the hospital returning again on the same day of discharge. On her most recent hospitalization 08/09/2021 to 08/10/2021 patient was admitted for acute on chronic hypoxic respiratory failure probably due to COPD exacerbation from probably viral bronchitis. She reported that while on the hospital she was started on buspirone. When she went home she took the buspirone and about 30 minutes after taking the buspirone she began to have shortness of breath and palpitations. She called a nurse line and she was instructed to take Xanax that she is also prescribed. She took the Xanax but her symptoms did not jose so she came to the emergency department. While at the emergency department patient felt better. Further work-up was done and it showed elevation of high sensitivity troponin. Patient reported at the emergent department that she has been having hemoptysis for a while so a CTPA was done. The CTPA did not show any PE. Patient reports that because she lay flat for the CTA her symptoms of shortness of breath re-occurred. Follow-up chest x-ray showed flash pulmonary edema. Plan was to give patient nitroglycerin. However patient was placed on BiPAP and given Lasix and her symptoms improved. She requested that the BiPAP be removed. BiPAP was subsequently removed. However patient began to have shortness of breath again. At home patient uses [id number] 5 L of nasal cannula oxygen. She denies using BiPAP at home. [facility] Medical History Asthma with COPD Atherosclerotic heart disease of [place] coronary artery without angina pectoris Back pain Bilateral pneumonia CHF (congestive heart failure) Chronic respiratory failure COPD (chronic obstructive pulmonary disease) Depression Diabetes Former smoker Health care maintenance Heart disease Hepatitis History of constipation HLD (hyperlipidemia) Hypertension Lung disease MARK (obstructive sleep apnea) Pneumonia Psoriasis SOB (shortness of breath) Home Medications acetaminophen 1,000 mg PO TID PRN #1 tab 03/16/20 [Rx Last Taken 08/08/21] ipratropium 0.5 mg-albuterol 3 mg (2.5 mg base)/3 mL nebulization soln 3 ml INHALATION Q4H PRN PRN #180 ml 07/11/20 [Rx Last Taken 07/15/20 18:00] nitroglycerin 0.4 mg sublingual tablet 0.4 mg SUBLINGUAL Q5-15M #25 tab 08/13/20 [Rx Last Taken Unknown] clopidogrel 75 mg tablet 75 mg PO DAILY #90 tab 10/08/20 [Rx Last Taken 08/08/21] blood sugar diagnostic #100 each 11/05/20 [Rx Last Taken Unknown] pen needle, diabetic 32 gauge x #50 ea 12/06/20 [History Last Taken Unknown] atorvastatin 80 mg tablet 80 mg PO QHS #90 tab 12/09/20 [Rx Last Taken 08/08/21] Handicap Placard #1 ea 12/12/20 [Rx Last Taken Unknown] flash glucose scanning reader #1 ea 01/31/21 [Rx Last Taken Unknown] flash glucose sensor #2 ea 01/31/21 [Rx Last Taken Unknown] albuterol sulfate 90 mcg/actuation aerosol inhaler 2 puff INHALATION Q6H PRN #18 g 02/06/21 [Rx Last Taken Unknown] calcipotriene 0.005 % topical cream 1 applic TOPICAL DAILY #120 g 03/07/21 [Rx Last Taken Unknown] clobetasol 0.05 % topical cream 1 applic TOPICAL BID 14 Days #60 g 03/10/21 [Rx Last Taken Unknown] metoprolol tartrate 25 mg tablet 12.5 mg PO BID #90 tab 04/25/21 [Rx Last Taken 08/08/21] fluticasone propionate 50 mcg/actuation nasal spray,suspension 1 spray INTRANASAL DAILY #16 g 04/29/21 [Rx Last Taken 08/08/21] metformin 500 mg tablet,extended release 24 hr 1,000 mg PO QPM #180 tab 06/10/21 [Rx Last Taken 08/08/21] risperidone 1 mg tablet 1 mg PO QHS #90 tab 06/11/21 [Rx Last Taken 08/08/21] isosorbide mononitrate 60 mg tablet,extended release 24 hr 60 mg PO DAILY #30 tab 06/20/21 [Rx Last Taken 08/08/21] pantoprazole 40 mg tablet,delayed release 40 mg PO DAILY #90 tab 07/10/21 [Rx Last Taken 08/08/21] alprazolam 0.25 mg tablet 0.25 mg PO DAILY PRN #30 tab 07/16/21 [Rx Last Taken 08/08/21] furosemide 20 mg tablet 20 mg PO DAILY #30 tab 07/21/21 [Rx Last Taken Unknown] citalopram 40 mg tablet 40 mg PO QHS #90 tab 07/23/21 [Rx Last Taken 08/08/21] Basaglar KwikPen U-100 Insulin 40 unit SUBCUT DAILY 90 Days #32.4 ml 08/10/21 [Rx Last Taken 08/08/21] buspirone 10 mg PO BID #60 tab 08/10/21 [Rx Last Taken Unknown] dexamethasone 6 mg PO DAILY #5 tab 08/10/21 [Rx Last Taken Unknown] guaifenesin [Mucus Relief ER] 1,200 mg PO BID #14 tab 08/10/21 [Rx Last Taken Un known] insulin lispro [Humalog KwikPen Insulin] 10 unit SC TID #0 ml 08/10/21 [Rx Last Taken 08/08/21] Allergy/AdvReac Type Severity Reaction Status Date / Time amoxicillin [Amoxicillin] Allergy Intermediate Rash Verified 08/10/21 18:18 gabapentin [From Neurontin] Allergy Shortness Verified 08/10/21 18:18 of breath levofloxacin [From Levaquin] Allergy Hives Verified 08/10/21 18:18 pseudoephedrine HCl Allergy Shortness Verified 08/10/21 18:18 [From Sudafed] of breath red dye Allergy Hives Verified 08/10/21 18:18 prednisone AdvReac Severe mean mood Verified 08/10/21 18:18 codeine AdvReac HEADACHE Verified 08/10/21 18:18 Family History Brother Heart disease Mother Colon cancer Heart disease Surgical History History of cholecystectomy History of left heart catheterization (LHC) (~09/23/20) Stented coronary artery (12/28/18) Social History Smoking Status: Former smoker pack-years: 40 how long ago did patient quit smokin year ago alcohol intake: never substance use type: does not use caffeine: Yes Type: carbonated beverages and tea what type of physical activity do you participate in: none ROS ROS Narrative Constitutional: Denies fever, chills, fatigue, anorexia and change in weight Eyes: Denies blurry vision, change in eye color, change in vision, discharge from eye(s), double vision, erythema, eye pain, loss of vision or other HEENT: Denies abnormal hearing, dysphagia, ear pain, epistaxis, headache(s), hearing loss, nasal congestion, nasal discharge, post nasal drip, sinus pressure, sore throat or other Cardiovascular: Reports palpitations. Denies chest pain Respiratory/Chest: Reports cough and dyspnea. Reports wheezes. Reports hemoptysis Gastrointestinal: Denies abdominal pain, coffee ground emesis, constipation, diarrhea, dyspepsia, hematemesis, hematochezia, loose stools, melena, nausea, vomiting or other Genitourinary: Denies burning urination, difficulty urinating, dysuria, hematuria, nocturia, urinary frequency, urinary hesitancy, urinary incontinence, urinary urgency or other Musculoskeletal: Denies arthralgias, back pain, joint pain, joint stiffness, joint swelling, myalgias, neck pain or other Neurologic: Denies abnormal gait, abnormal speech, confusion, disequilibrium, dizziness, focal weakness, headache(s), numbness, paresthesias, seizure-like activity, seizures, syncope, tingling, tremor(s) or other Psychiatric: Reports anxiety. Denies depression, homicidal ideation, suicidal ideation or other Endocrinology: Denies change in body appearance, cold intolerance, excessive sweating, heat intolerance, polydipsia, polyuria or other Hematologic/Lymphatic: Denies anemia, easy bruising, lymphadenopathy or other Integumentary: Denies rashes Allergic/Immunologic: Denies rhinitis, hives, eczema, asthma or other Vital Signs Vital Signs Vital Signs: 08/10/21 18:13 08/10/21 18:51 08/10/21 18:53 Temperature 98.0 F Temperature Source Temporal Pulse Rate 87 89 Respiratory Rate 48 H 21 H Respiratory Effort Normal Non-Labored Respiratory Depth Normal Respiratory Pattern Hyperpnea Blood Pressure 138/77 H 139/63 H Blood Pressure Mean 97 88 Pulse Ox 100 96 Oxygen Delivery Method Room Air Nasal Cannula Nasal Cannula Oxygen Flow Rate (L/min) 5 5 Fraction of Inspired Oxygen (FIO2) 08/10/21 21:19 08/10/21 23:46 08/10/21 23:55 Temperature Temperature Source Pulse Rate 145 H 142 H Respiratory Rate 34 H 34 H Respiratory Effort Respiratory Depth Respiratory Pattern Blood Pressure Blood Pressure Mean Pulse Ox 72 93 Oxygen Delivery Method Nasal Cannula Nasal Cannula Non-Rebreather Oxygen Flow Rate (L/min) 5 5 15 Fraction of Inspired Oxygen (FIO2) 08/11/21 00:00 08/11/21 00:07 08/11/21 00:16 Temperature Temperature Source Pulse Rate 139 H 128 H 119 H Respiratory Rate 32 H 30 H 28 H Respiratory Effort Respiratory Depth Respiratory Pattern Tachypnea Blood Pressure 172/95 H 144/63 H Blood Pressure Mean 120 90 Pulse Ox 96 97 96 Oxygen Delivery Method Bi-pap Bi-pap Oxygen Flow Rate (L/min) Fraction of Inspired Oxygen (FIO2) 70 08/11/21 00:40 08/11/21 01:25 08/11/21 02:30 Temperature 98.5 F Temperature Source Oral Pulse Rate 114 H 96 88 Respiratory Rate 32 H 33 H 29 H Respiratory Effort Respiratory Depth Respiratory Pattern Tachypnea Tachypnea Blood Pressure 134/110 H Blood Pressure Mean 118 Pulse Ox 97 100 Oxygen Delivery Method Nasal Cannula Oxygen Flow Rate (L/min) 5 Fraction of Inspired Oxygen (FIO2) 30 Weight Weight: 99.79 kg Body Mass Index (BMI) 40.2 Physical Exam Narrative Physical exam: General: Well-nourished, well-developed. Head: Normocephalic, atraumatic, no tenderness Eyes: PERRLA, EOMI ENT, no trauma, moist mucous membranes, no rhinorrhea Neck: Nontender, full range of motion, no spinal tenderness, deformities, step- off CVS: Tachycardia S1-S2 present. No murmur, gallop or rub. Respiratory : Increased work of breathing. Using accessory muscles of res piration. Mild wheezes. Chest wall nontender. Abdomen: Soft, nontender, nondistended, normal bowel sounds, no masses : Deferred Back: Nontender, no CVA tenderness, no midline spinal tenderness, deformities, step-offs Extremities: Nontender full range of motion, no trauma Skin: Normal color, no trauma, abrasions Neuro: Alert, oriented, cranial nerves II through XII grossly intact. Psychiatry: Anxious. Not depressed Results Lab / Micro Data Result Diagrams: 08/10/21 21:18 08/10/21 21:18 Labs: Laboratory Results - last 24 hr 08/10/21 21:18: WBC 9.9, RBC 3.63 L, Hgb 9.4 L, Hct 31.0 L, MCV 85.4, MCH 25.9 L , MCHC 30.3 L, RDW Std Deviation 40.9, RDW Coeff of Malcom 13.2, Plt Count 344, MPV 11.1, Immature Gran % (Auto) 0.400, Neut % (Auto) 76.8 H, Lymph % (Auto) 13.3 L, [place] % (Auto) 6.0, Eos % (Auto) 2.7, Baso % (Auto) 0.8, Absolute Neuts (auto) 7.6, Absolute Lymphs (auto) 1.32, Nucleated RBC % 0 08/10/21 21:18: Sodium 136, Potassium 4.1, Chloride 99, Carbon Dioxide 31.0, Anion Gap 6, BUN 15, Creatinine 0.99, Estim Creat Clear Calc 41.82, Est GFR (MDRD) Af Amer 72, Est GFR (MDRD) Non-Af 59 L, BUN/Creatinine Ratio 15.2, Glucose 402 H, Calcium 9.6, Troponin I High Sens 106 H 08/11/21 00:14: POC Glucose 395 H 08/11/21 01:10: B-Natriuretic Peptide 103.9 H Radiology Impression Chest X-Ray 08/10/21 20:58 IMPRESSION: Unchanged to slight improvement in patchy bibasilar airspace opacities. Electronically Signed: Ranjeet Dong MD at 21:54 EST Tel , Service support , Chest CTA 08/10/21 23:14 IMPRESSION: 1. Tiny residual right pleural effusion. 2. No acute disease or new consolidation. 3. Multiple small right-sided nodules which are nonspecific. Suggest further evaluation with ultrasound if not already previously performed. Electronically Signed: Marko Norton MD at 0:16 EST Tel , Service support , Chest X-Ray 08/11/21 00:26 IMPRESSION: New bilateral pneumonia suspected although differential diagnosis would also include pulmonary edema or alveolar damage. Correlate clinically. Follow to resolution. Electronically Signed: Marko Norton MD at 1:22 EST Tel , Service support , Assessment & Plan Assessment/Plan (1) Flash pulmonary edema: (2) Acute and chronic respiratory failure with hypoxia: PLAN: Acute on chronic respiratory failure with hypoxia likely secondary flash pulmonary edema Place on monitored bed on a progressive care unit Weight on admission to the floor; and then daily Strict I&O's. Fluid restriction Chest x-ray obtain on 08/11/2021 at 0026 confirms bilateral infiltrates. Actual chest x-ray image was independently interpreted and I agree with radiologist interpretation EKG independently reviewed confirms nonspecific T wave abnormalities. Emergency department labs reviewed shows BNP of 103.9. Received Lasix 40 mg IV push at emergency department. Hold home p.o. Lasix. Lasix 40 mg IV push twice daily ordered. Supplement potassium. Cardiac catheterization on 09/23/2020: Elevated left ventricular end-diastolic pressure (mild); left ventricular ejection fraction by LV gram was 55%. Echocardiogram on 12/28/2018 showed estimated EF of 65% with stage I diastolic dysfunction. BiPAP ordered. Fluid restriction of 1500 mls daily Cardiac and diabetic diet ordered Anxiety disorder Discussed with patient that her anxiety symptoms is likely not due to buspirone since she received buspirone at the hospital on recent hospitalization. However patient does not want to take BuSpar again. Will discontinue buspirone. Will place on scheduled Atarax. Xanax as needed ordered. Diabetes mellitus Patient with hyperglycemia on presentation Home basal and prandial insulin continued. Hold Metformin Accu-Chek QA CHS with correction scale insulin ordered. DVT prophylaxis: Moderate to High risk of DVT. Lovenox ordered. If hemoptysis persist consider discontinuing Lovenox Charges/Coding Visit Charges Inpatient E&M: 17572 Init Hosp L3
[2021-08-11 03:01] LABS: Bedside Glucose 292 mg/dL (70-110)
--- NOTE | 2021-08-11 03:31 | ECHOCS_ITS ---
Version 2 Reason For Study: SOB Procedure This was a 2D Doppler, Color Flow transthoracic echocardiogram. The study was technically difficult. Due to body habitus. Contrast injection was performed. Exam performed portable in patient room. Left Ventricle Normal LV size. Moderate concentric left ventricular hypertrophy. Left ventricular systolic function is normal. The estimated ejection fraction is 60 %. Stage 1 diastolic dysfunction. No regional wall motion abnormalities noted. Right Ventricle Normal RV size. Normal systolic function. Tricuspid Valve Normal tricuspid valve. Mild (1+) tricuspid valve insufficiency. Pulmonary artery systolic pressure is 40 mmHg. Aortic Valve Trisinus/trileaflet aortic valve. Pulmonic Valve Normal pulmonic valve. Great Vessels Normal aortic root. The pulmonary artery is normal size. Normal inferior vena cava. Pericardium/Pleural No pericardial effusion. Medication Diluted definity 2.0ml given slow IV push to enhance endocardial definition. MMode/2D Measurements & Calculations LVIDd: 5.1 cm IVSd: 1.4 cm Ao root diam: 3.3 cm LVIDs: 3.0 cm LVPWd: 1.4 cm RVDd: 3.5 cm FS: 40.9 % LAV(MOD-bp): 57.9 ml LA A4 area: 19.2 cm2 LA dimension(2D): 4.7 cm LAV(MOD-bp) Indexed: 29.2 ml/m2 LAV(MOD-sp2): 55.7 ml LAV(MOD-sp4): 57.0 ml RA A4 area: 14.6 cm2 Time Measurements MV dec time: 0.22 sec Doppler Measurements & Calculations MV E max eliseo: 70.3 cm/sec Lat Peak E' Eliseo: 7.7 cm/sec Med Peak E' Eliseo: 7.4 cm/sec MV A max eliseo: 85.8 cm/sec E/E' lat: 9.2 E/E' med: 9.6 MV E/A: 0.82 Ao V2 max: 170.5 cm/sec LV V1 max: 148.4 cm/sec PA V2 max: 124.6 cm/sec Ao max P.6 mmHg LV V1 max P.8 mmHg TR max eliseo: 302.5 cm/sec TR max P.6 mmHg ECHO/Echo Complete W/ Contrast Interpretation Summary Normal LV size. Moderate concentric left ventricular hypertrophy. Left ventricular systolic function is normal. The estimated ejection fraction is 60 %. Pulmonary artery systolic pressure is 40 mmHg. Stage 1 diastolic dysfunction. Contrast injection was performed. Ordering Physician: Yuan Singh Referring Physician: Billy Madera Performed By: Katlyn Cho RDCS, RVT
--- NOTE | 2021-08-11 03:32 | PCS.PANDOC ---
PANDEMIC DOCUMENTATION INITIATED: Date: 03/24/2021 Time: 190
[2021-08-11 04:25] LABS: Troponin-I HS 229 pg/mL (3.0-54.0)
--- NOTE | 2021-08-11 04:37 | CPS ---
Adjusted BIPAP settings for pt comfort
[2021-08-11] MEDS: ALPRAZolam 0.25 MG Tablet PO (04:44)
--- NOTE | 2021-08-11 07:15 | CPS ---
PATIENT REQUESTED AEROSOL TREATMENT, SHE ALSO REQUESTED TO TAKE A BREAK FROM BIPAP. DUONEB GIVEN AND PT PLACED ON 5LPM NC, SHE WEARS AT HOME.
--- NOTE | 2021-08-11 07:25 | PCM.PN.HOSP ---
Subjective Subjective Discussed with admitting physician/hospitalist. Patient was discharged after initial evaluation for COPD exacerbation/anxiety and panic attack. She gets palpitation/heart racing along with dyspnea. Yesterday night after CT chest was done very tachycardic and could not lay flat she gets and chest x-ray shows bilateral rib tenderness airspace consolidation on both lungs multiplex usually CTA chest which will be unusual for sudden development of pneumonia, pulmonary reminds him of possibility. Patient also has elevated troponin. Document Reviewer consulted for further plan Objective Data Objective Data Vital Signs: Vital Signs Temp Pulse Resp BP Pulse Ox 97.8 F 77 24 H 128/56 H 96 08/11/21 06:40 08/11/21 06:40 08/11/21 06:40 08/11/21 06:40 08/11/21 06:40 Oxygen Flow Rate (L/min) 5 Oxygen Delivery Method Bi-pap Weight: 222 lb 14.197 oz Body Mass Index (BMI) 40.7 Intake & Output: Intake and Output for Last 24 Hours 08/09/21 08/10/21 08/11/21 23:59 23:59 23:59 Output Total 200 / 200 Balance -200 / -200 Lab / Micro Data Result Diagrams: 08/11/21 07:45 08/11/21 07:45 Labs: Laboratory Results - last 24 hr 08/10/21 21:18: WBC 9.9, RBC 3.63 L, Hgb 9.4 L, Hct 31.0 L, MCV 85.4, MCH 25.9 L, MCHC 30.3 L, RDW Std Deviation 40.9, RDW Coeff of [place] 13.2, Plt Count 344, MPV 11.1, Immature Gran % (Auto) 0.400, Neut % (Auto) 76.8 H, Lymph % (Auto) 13.3 L, [place] % (Auto) 6.0, Eos % (Auto) 2.7, Baso % (Auto) 0.8, Absolute Neuts (auto) 7.6, Absolute Lymphs (auto) 1.32, Nucleated RBC % 0 08/10/21 21:18: Sodium 136, Potassium 4.1, Chloride 99, Carbon Dioxide 31.0, Anion Gap 6, BUN 15, Creatinine 0.99, Estim Creat Clear Calc 41.82, Est GFR (MDRD) Af Amer 72, Est GFR (MDRD) Non-Af 59 L, BUN/Creatinine Ratio 15.2, Glucose 402 H, Calcium 9.6, Troponin I High Sens 106 H 08/11/21 00:14: POC Glucose 395 H 08/11/21 01:10: B-Natriuretic Peptide 103.9 H 08/11/21 02:58: POC Glucose 292 H 08/11/21 03:44: Troponin I High Sens 229 H* Radiography Diagnostic Testing: Radiology Impression Chest X-Ray 08/10/21 20:58 IMPRESSION: Unchanged to slight improvement in patchy bibasilar airspace opacities. Electronically Signed: Ranjeet Dong MD at 21:54 EST Tel , Service support , Chest CTA 08/10/21 23:14 IMPRESSION: 1. Tiny residual right pleural effusion. 2. No acute disease or new consolidation. 3. Multiple small right-sided nodules which are nonspecific. Suggest further evaluation with ultrasound if not already previously performed. Electronically Signed: Marko Norton MD at 0:16 EST Tel , Service support , Chest X-Ray 08/11/21 00:26 IMPRESSION: New bilateral pneumonia suspected although differential diagnosis would also include pulmonary edema or alveolar damage. Correlate clinically. Follow to resolution. Electronically Signed: Marko Norton MD at 1:22 EST Tel , Service support , Physical Exam Narrative She said her palpitations and shortness of breath increased after BuSpar and talk to her home health advised Xanax but did not get better. Denies chest pain General: Alert, Oriented x3, Cooperative HEENT: Atraumatic, PERRLA, EOMI, Normocephalic Oral: No Gingival or Mucosal Lesions/ Ulcerations Neck: Supple, No JVD, Negative Carotid Bruits Lungs: Air entry equal in bilateral lung bases. No crepitation/rhonchi. Cardiovascular: Regular rate, Regular Rhythm, Normal S1, Normal S2, No murmurs Abdomen: Soft, Non Tender, not distended, bowel sounds present : No renal angle tenderness. No suprapubic tenderness. Extremities: No edema, Capillary Refill Less than 3 Seconds Skin: No rashes, No breakdown Musculoskeletal: No Tenderness to Palpation of Joints or Extremities Neurological: Cranial nerves II-XII grossly intact, DTR 2+/4 and Symmetrical, Neuro grossly intact Psych/Mental Status: Anxiety disorder Assessment & Plan Assessment/Plan (1) Flash pulmonary edema: (2) Acute and chronic respiratory failure with hypoxia: PLAN: 1. Acute on chronic respiratory failure with hypoxia most likely due to acute on chronic diastolic heart failure: Patient had significant improvement after Lasix. Heart failure core measures including intake and output, fluid restriction less than 1500 mL, daily weight monitoring, kidney and electrolytes monitoring. Chest x-ray shows bilateral alveolar opacity stable fluid but CT chest showed no acute consolidation. EKG nonischemic ST-T changes. Serial isolated troponins elevated. BNP mildly elevated. Lasix 40 mg IV twice daily. Patient had echo in July 2020 shows EF 60%, mild MR, mild TR, RVSP 37 mmHg. Cardiac catheterization on 09/23/2020 left ventricular ejection fraction by LV gram was 55%. On BiPAP. Repeat echo shows EF 60%, moderate concentric LVH stage I diastolic dysfunction, PASP 40 mmHg. Mild hypokalemia: Potassium replaced. On metoprolol, Plavix, atorvastatin 2. Anxiety disorder with panic attack: Risperidone was discontinued. On scheduled Atarax. Xanax as needed ordered. 3. Hypertension: Blood pressure fluctuates between 128/56-154/64. 4. Diabetes mellitus type II: Accu-Cheks glucose is uncontrolled and high, between 200-395. Started on Humalog 10 units subcutaneous 3 times daily AC. Lantus insulin dose increased. Carb controlled diet. Full code DVT prophylaxis: Moderate to High risk of DVT. Lovenox ordered.
[2021-08-11 07:45] LABS: Bedside Glucose 202 mg/dL (70-110)
[2021-08-11 08:04] LABS: Absolute Lymphocyte Count 1.52 X10^3/uL (0.83-4.51); Basophil# 0.08 X10^3/uL; Basophil% 0.7 % (0-1); Eosinophil# 0.21 X10^3/uL; Eosinophils% 1.8 % (0-5); Hematocrit 30.9 % (37-47); Hemoglobin 9.4 g/dL (12.0-15.0); Lymphocyte # 1.52 X10^3/ul (0.83-4.51); Mean Corp Hgb Conc 30.4 g/dL (32-36); Mean Corpuscular Hgb 25.8 pg (27.0-32.0); Mean Corpuscular Volume 84.9 fL (81-99); Mean Platelet Vol. 10.9 fl (6.2-12.0); Monocyte# 0.78 X10^3/uL; Monocyte% 6.7 % (0-10); NRBC Flagged by Analyzer 0 % (0-5); Neutrophil # 9.02 X10^3/uL (2.7-7.7); Neutrophil % 77.3 % (47-70); Platelet Count 331 K/mm3 (150-450); RBC Distribution Width CV 13.2 % (11.6-14.6); RBC Distribution Width SD 41.1 fl (35.1-43.9); Red Blood Count 3.64 M/mm3 (4.2-5.4); White Blood Count 11.7 K/mm3 (4.4-11.0)
[2021-08-11 08:38] LABS: Anion Gap 6 (5-15); BUN 15 mg/dL (7-18); BUN/Creat Ratio 17.2 RATIO (10-20); Calcium,Total 9.7 mg/dL (8.5-10.1); Chloride 98 mmol/L (98-107); Creatinine, Serum 0.87 mg/dL (0.55-1.02); EST Glomerular Filtration Rate 68 mL/min (>60); Est Glom Filt Rate - Afr Amer 83 mL/min (>60); Estimated Creatinine Clearance 47.59 ml/min; Glucose 212 mg/dL (74-106); Potassium 3.6 mmol/L (3.5-5.1); Sodium Level 136 mmol/L (136-145); Troponin-I HS 269 pg/mL (3.0-54.0)
[2021-08-11] MEDS: Insulin Lispro 100 UNIT/ML INSULN.PEN 12 UNIT SC ×3 (09:45→18:15)
[2021-08-11] MEDS: Insulin Lispro 100 UNIT/ML INSULN.PEN SC ×4 (09:45→21:20)
[2021-08-11] MEDS: Potassium Chloride Oral Tablet 20 MEQ 40 MEQ PO (09:46)
[2021-08-11] MEDS: dexAMETHasone 4 MG Tablet 6 MG PO (09:46)
[2021-08-11] MEDS: Fluticasone 0.05% 1 SPRAY NASAL.SRY NASAL (09:46)
[2021-08-11] MEDS: 0.9% Saline Lock 10 ML Syringe IV ×2 (09:47→17:23)
[2021-08-11] MEDS: Pantoprazole Sodium 40 MG Tablet PO (09:48)
[2021-08-11] MEDS: Metoprolol Tartrate 25 MG Tablet 12.5 MG PO ×2 (09:48→21:19)
[2021-08-11] MEDS: Clopidogrel Bisulfate 75 MG Tablet PO (09:48)
[2021-08-11] MEDS: Enoxaparin 40 MG/0.4 ML Syringe SC (09:49)
--- NOTE | 2021-08-11 11:27 | CASEMGMT ---
Pt is already active with [facility] palliative care, contact info: [phone] and fax for d/c info: [phone]. [facility] palliative aware. Julio Cesar CANSECO CM
[2021-08-11] MEDS: Isosorbide Mononitrate 60 MG Tablet PO (12:00)
[2021-08-11 12:10] LABS: Bedside Glucose 207 mg/dL (70-110)
--- NOTE | 2021-08-11 12:50 | CASEMGMT ---
HARLEEN LUCIANO Face to Face with patient for initial transition planning/care coordination assessment. RN MUSTAPHA introduced self and role at [facility]. Patient sitting in chair, alert and oriented. Patient willing to participate in assessment and is able to answer all questions appropriately. Care providers, pharmacy, and demographics verified. Patient wishes to discharge home with possible HHC. Patient states she has no further needs or concerns at this time. CM to follow for discharge planning needs that may arise. PCP: Santy Specialists: Yaakov, manager corporate communications; Blake webbing supervisor Preferred Pharmacy: [facility] Insurance: [employer] Prescription Benefit: yes Living Will/HPOA: none LNOK: DIL Living Arrangements: Patient lives with roommate in an apartment with 4 steps railing to enter. Patient states she is independent at home. Transportation: Self or Flor [facility]. DME/HHC: patient states she has shower chair, grab bars, rollator, nebulizer, and home oxygen at 5 lpm through [employer]. Patient is active with Palliative Care. Patient has previously had [facility] HHC. Disposition Plan: Patient to discharge home with HHC, family support, and follow-up plans in place. Jyoti STORY, RN, CM
--- NOTE | 2021-08-11 13:09 | EX.PCM.CONCC ---
Assessment & Plan Assessment/Plan (1) Acute and chronic respiratory failure with hypoxia: (2) Heart palpitations: (3) Dermatomyositis: (4) Type 2 diabetes mellitus: QUALIFIERS: Diabetes mellitus nursing home insulin use: with nursing home use Diabetes mellitus complication status: with hyperglycemia Qualified Code(s): E11.65 - Type 2 diabetes mellitus with hyperglycemia; Z79.4 - buttermaker continuous churn (current) use of insulin (5) CHF (congestive heart failure): PLAN: RECOMMENDATIONS: 1. No indication for antibiotics or prednisone from my perspective 2. Aggressive control of blood pressure 3. Wean oxygen as tolerated 4. Aggressive treatment of fluid status 5. Walking oximetry prior to discharge IMPRESSIONS: 1. Acute on chronic combined respiratory failure Exact etiology is unclear at this time. Patient did have rapid recovery following Lasix making congestive heart failure or flash pulmonary edema a significant concern. Patient does have significant underlying obstructive lung disease but this is likely contributing, not the etiology of presentation. Likely okay to monitor off steroid therapy and reinitiate baseline inhalers. Low clinical suspicion for concomitant infectious etiology. Aggressive diuresis over the next 24 to 48 hours. Walking oximetry prior to discharge. Patient does admit to increased salt intake recently. Patient also has a history of noncompliance with Lasix therapy and MARK making readmission more likely. 2. Hypertensive emergency/anxiety disorder Patient with significant decompensation when systolics were greater than 170. Unclear if this is related to anxiety versus having anxiety as a result of her pulmonary edema. Aggressively control blood pressure. Defer to primary service if cardiology needs to be involved. 3. 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 We will watch H&H's this patient does have some anemia. Patient would likely benefit from nocturnal CPAP, but has not tolerated this in the past. HPI Consult Data Date of Consult: 08/11/21 HPI Narrative HPI Narrative: TIM CEDILLO is a 71 F, with past medical history listed below and well-known to me from the outpatient office, who presents to [facility] 08/10/2021 secondary to worsening shortness of breath and palpitations. Patient was recently hospitalized for what was thought to be a COPD exacerbation. Patient reportedly had required increased FiO2 and was brought into the hospital. Patient was diuresed and went back to her 5 L nasal cannula and was discharged. Within 24 hours, patient states she started to develop dyspnea, palpitations and significant anxiety. Patient reportedly had tried to take 0.25 mg of alprazolam without improvement, so called EMS to come back to the emergency department. In the ER, patient was afebrile, but tachypneic as high as 48 breaths/min. Patient did desaturate on her baseline 5 L nasal cannula to as low as 72% and was noted to be tachycardic at 145 bpm. Patient also noted to be significantly hypertensive at 172/95. Laboratory work-up was relatively unremarkable except for an elevated bicarbonate of 31, hemoglobin of 9.4 and a glucose of 402. Chest x-ray was unchanged to slightly improved compared to previous hospitalization. CTA of the chest showed no PE and a tiny right pleural effusion. Patient was admitted to the floor for further evaluation. Since being on the floor, patient reports some subjective improvement in overall condition. Patient states that she did not feel overall that she was back to her baseline when she was discharged previously. Patient did report the onset of palpitations prior to worsening shortness of breath. Patient did not attempt a rescue inhaler or other intervention from a pulmonary standpoint. Patient did take BiPAP rescue and responded to Lasix. Patient was subsequently admitted to the floor. Patient states that she was on her usual health prior to . Patient did admit to having sauerkraut and pork for New Year's. Patient does not believe that this has much salt. Patient precipitately started to get worsening shortness of breath and was admitted to the hospital initially. Patient does not report any change in cough, sputum production or the development of chest pain. Patient reports she has been compliant with her supplemental oxygen. Patient does have a history of a noncompliant with Lasix therapy. Patient also has not been able to tolerate therapy for her MARK leading to hospitalization in the past. Review of systems otherwise negative from a constitutional, HEENT, respiratory, cardiovascular, GI, genitourinary, musculoskeletal, skin, neurologic, psychiatric and hematologic system unless stated above. [facility] Medical History Asthma with COPD Atherosclerotic heart disease of [place] coronary artery without angina pectoris Back pain Bilateral pneumonia CHF (congestive heart failure) Chronic respiratory failure COPD (chronic obstructive pulmonary disease) Depression Diabetes Former smoker Health care maintenance Heart disease Hepatitis History of constipation HLD (hyperlipidemia) Hypertension Lung disease MARK (obstructive sleep apnea) Pneumonia Psoriasis SOB (shortness of breath) Home Medications acetaminophen 1,000 mg PO TID PRN #1 tab 03/16/20 [Rx Last Taken 08/08/21] ipratropium 0.5 mg-albuterol 3 mg (2.5 mg base)/3 mL nebulization soln 3 ml INHALATION Q4H PRN PRN #180 ml 07/11/20 [Rx Last Taken 07/15/20 18:00] nitroglycerin 0.4 mg sublingual tablet 0.4 mg SUBLINGUAL Q5-15M #25 tab 08/13/20 [Rx Last Taken Unknown] clopidogrel 75 mg tablet 75 mg PO DAILY #90 tab 10/08/20 [Rx Last Taken 08/08/21] blood sugar diagnostic #100 each 11/05/20 [Rx Last Taken Unknown] pen needle, diabetic 32 gauge x #50 ea 12/06/20 [History Last Taken Unknown] atorvastatin 80 mg tablet 80 mg PO QHS #90 tab 12/09/20 [Rx Last Taken 08/08/21] Handicap Placard #1 ea 12/12/20 [Rx Last Taken Unknown] flash glucose scanning reader #1 ea 01/31/21 [Rx Last Taken Unknown] flash glucose sensor #2 ea 01/31/21 [Rx Last Taken Unknown] albuterol sulfate 90 mcg/actuation aerosol inhaler 2 puff INHALATION Q6H PRN #18 g 02/06/21 [Rx Last Taken Unknown] calcipotriene 0.005 % topical cream 1 applic TOPICAL DAILY #120 g 03/07/21 [Rx Last Taken Unknown] clobetasol 0.05 % topical cream 1 applic TOPICAL BID 14 Days #60 g 03/10/21 [Rx Last Taken Unknown] metoprolol tartrate 25 mg tablet 12.5 mg PO BID #90 tab 04/25/21 [Rx Last Taken 08/08/21] fluticasone propionate 50 mcg/actuation nasal spray,suspension 1 spray INTRANASAL DAILY #16 g 04/29/21 [Rx Last Taken 08/08/21] metformin 500 mg tablet,extended release 24 hr 1,000 mg PO QPM #180 tab 06/10/21 [Rx Last Taken 08/08/21] risperidone 1 mg tablet 1 mg PO QHS #90 tab 06/11/21 [Rx Last Taken 08/08/21] isosorbide mononitrate 60 mg tablet,extended release 24 hr 60 mg PO DAILY #30 tab 06/20/21 [Rx Last Taken 08/08/21] pantoprazole 40 mg tablet,delayed release 40 mg PO DAILY #90 tab 07/10/21 [Rx Last Taken 08/08/21] alprazolam 0.25 mg tablet 0.25 mg PO DAILY PRN #30 tab 07/16/21 [Rx Last Taken 08/08/21] furosemide 20 mg tablet 20 mg PO DAILY #30 tab 07/21/21 [Rx Last Taken Unknown] citalopram 40 mg tablet 40 mg PO QHS #90 tab 07/23/21 [Rx Last Taken 08/08/21] Basaglar KwikPen U-100 Insulin 40 unit SUBCUT DAILY 90 Days #32.4 ml 08/10/21 [Rx Last Taken 08/08/21] buspirone 10 mg PO BID #60 tab 08/10/21 [Rx Last Taken Unknown] dexamethasone 6 mg PO DAILY #5 tab 08/10/21 [Rx Last Taken Unknown] guaifenesin [Mucus Relief ER] 1,200 mg PO BID #14 tab 08/10/21 [Rx Last Taken Unknown] insulin lispro [Humalog KwikPen Insulin] 10 unit SC TID #0 ml 08/10/21 [Rx Last Taken 08/08/21] Allergy/AdvReac Type Severity Reaction Status Date / Time amoxicillin [Amoxicillin] Allergy Intermediate Rash Verified 08/10/21 18:18 gabapentin [From Neurontin] Allergy Shortness Verified 08/10/21 18:18 of breath levofloxacin [From Levaquin] Allergy Hives Verified 08/10/21 18:18 pseudoephedrine HCl Allergy Shortness Verified 08/10/21 18:18 [From Sudafed] of breath red dye Allergy Hives Verified 08/10/21 18:18 prednisone AdvReac Severe mean mood Verified 08/10/21 18:18 codeine AdvReac HEADACHE Verified 08/10/21 18:18 Family History Brother Heart disease Mother Colon cancer Heart disease Surgical History History of cholecystectomy History of left heart catheterization (LHC) (~09/23/20) Stented coronary artery (12/28/18) Social History Smoking Status: Former smoker pack-years: 40 how long ago did patient quit smokin year ago alcohol intake: never substance use type: does not use caffeine: Yes Type: carbonated beverages and tea what type of physical activity do you participate in: none ROS ROS Narrative See HPI Physical Exam Const alert, oriented x3 and no apparent distress General Appearance: cooperative and well developed Nutritional Appearance: morbidly obese HEENT normocephalic, head/scalp atraumatic and moist oral mucous membranes Eyes PERRL and EOMs intact bilaterally Neck full ROM and no lymphadenopathy Chest inspection of chest normal Chest: symmetrical chest wall rise; Negative for crepitus Resp Auscultation: diminished lung sounds; Negative for rales, rhonchi or wheezes Percussion: Negative for dullness Cardio regular rate, regular rhythm, S1 normal heart sound, S2 normal heart sound, no murmurs, no rub and no gallops GI normal to inspection, nondistended, normoactive bowel sounds no CVA tenderness Extremity General Extremity: clubbing and edema bilateral lower extremity; Negative for cyanosis Skin no rashes or lesions noted Neuro oriented x3, CN's II-XII intact bilaterally, moves all extremities and no focal motor deficits Psych cooperative and affect normal Lab / Micro Data Result Diagrams: 08/11/21 07:45 08/11/21 07:45 Labs: Laboratory Results - last 24 hr 08/10/21 21:18: WBC 9.9, RBC 3.63 L, Hgb 9.4 L, Hct 31.0 L, MCV 85.4, MCH 25.9 L, MCHC 30.3 L, RDW Std Deviation 40.9, RDW Coeff of Malcom 13.2, Plt Count 344, MPV 11.1, Immature Gran % (Auto) 0.400, Neut % (Auto) 76.8 H, Lymph % (Auto) 13.3 L, Terrell % (Auto) 6.0, Eos % (Auto) 2.7, Baso % (Auto) 0.8, Absolute Neuts (auto) 7.6, Absolute Lymphs (auto) 1.32, Nucleated RBC % 0 08/10/21 21:18: Sodium 136, Potassium 4.1, Chloride 99, Carbon Dioxide 31.0, Anion Gap 6, BUN 15, Creatinine 0.99, Estim Creat Clear Calc 41.82, Est GFR (MDRD) Af Amer 72, Est GFR (MDRD) Non-Af 59 L, BUN/Creatinine Ratio 15.2, Glucose 402 H, Calcium 9.6, Troponin I High Sens 106 H 08/11/21 00:14: POC Glucose 395 H 08/11/21 01:10: B-Natriuretic Peptide 103.9 H 08/11/21 02:58: POC Glucose 292 H 08/11/21 03:44: Troponin I High Sens 229 H* 08/11/21 07:35: POC Glucose 202 H 08/11/21 07:45: WBC 11.7 H, RBC 3.64 L, Hgb 9.4 L, Hct 30.9 L, MCV 84.9, MCH 25.8 L, MCHC 30.4 L, RDW Std Deviation 41.1, RDW Coeff of Malcom 13.2, Plt Count 331, MPV 10.9, Immature Gran % (Auto) 0.500, Neut % (Auto) 77.3 H, Lymph % (Auto) 13.0 L, Terrell % (Auto) 6.7, Eos % (Auto) 1.8, Baso % (Auto) 0.7, Absolute Neuts (auto) 9.0 H, Absolute Lymphs (auto) 1.52, Nucleated RBC % 0 08/11/21 07:45: Sodium 136, Potassium 3.6, Chloride 98, Carbon Dioxide 32.0, Anion Gap 6, BUN 15, Creatinine 0.87, Estim Creat Clear Calc 47.59, Est GFR (MDRD) Af Amer 83, Est GFR (MDRD) Non-Af 68, BUN/Creatinine Ratio 17.2, Glucose 212 H, Calcium 9.7, Troponin I High Sens 269 H* 08/11/21 11:57: POC Glucose 207 H Radiology Impression Chest X-Ray 08/10/21 20:58 IMPRESSION: Unchanged to slight improvement in patchy bibasilar airspace opacities. Electronically Signed: Ranjeet Dong MD at 21:54 EST Tel , Service support , Chest CTA 08/10/21 23:14 IMPRESSION: 1. Tiny residual right pleural effusion. 2. No acute disease or new consolidation. 3. Multiple small right-sided nodules which are nonspecific. Suggest further evaluation with ultrasound if not already previously performed. Electronically Signed: Marko Norton MD at 0:16 EST Tel , Service support , Chest X-Ray 08/11/21 00:26 IMPRESSION: New bilateral pneumonia suspected although differential diagnosis would also include pulmonary edema or alveolar damage. Correlate clinically. Follow to resolution. Electronically Signed: Marko Norton MD at 1:22 EST Tel , Service support , Echocardiogram 08/11/21 03:31 Interpretation Summary Normal LV size. Moderate concentric left ventricular hypertrophy. Left ventricular systolic function is normal. The estimated ejection fraction is 60 %. Pulmonary artery systolic pressure is 40 mmHg. Stage 1 diastolic dysfunction. Contrast injection was performed. Ordering Physician: Yuan Singh Referring Physician: Billy Madera Performed By: Katlyn Cho, KAMRYN, RVT Charges/Coding Visit Charges Inpatient E&M: 16579 Init Hosp L2
[2021-08-11] MEDS: hydrOXYzine 10 MG Tablet PO ×2 (15:37→21:18)
[2021-08-11 16:36] LABS: Bedside Glucose 294 mg/dL (70-110)
[2021-08-11] MEDS: Citalopram 40 MG TABLET PO (21:18)
[2021-08-11] MEDS: Atorvastatin Calcium 80 MG Tablet PO (21:18)
[2021-08-11] MEDS: RisperiDONE 1 MG Tablet PO (21:19)
[2021-08-12] VITALS (10 sets, daily range): BP systolic 123–136; BP diastolic 55–69; PULSE 63–70; RESP 16–20; TEMP 36.4–36.8; O2SAT 92–100
[2021-08-12] MEDS: hydrOXYzine 10 MG Tablet PO (06:04)
[2021-08-12 06:25] LABS: Absolute Lymphocyte Count 1.27 X10^3/uL (0.83-4.51); Absolute Neutrophil Count 9.4 X10^3/uL (2.0-7.7); Basophil# 0.06 X10^3/uL; Basophil% 0.5 % (0-1); Eosinophil# 0.04 X10^3/uL; Eosinophils% 0.3 % (0-5); Hematocrit 30.4 % (37-47); Hemoglobin 9.2 g/dL (12.0-15.0); Lymphocyte # 1.27 X10^3/ul (0.83-4.51); Lymphocyte % 10.9 % (19-41); Mean Corp Hgb Conc 30.3 g/dL (32-36); Mean Corpuscular Hgb 25.6 pg (27.0-32.0); Mean Corpuscular Volume 84.4 fL (81-99); Mean Platelet Vol. 11.3 fl (6.2-12.0); Monocyte% 6.8 % (0-10); NRBC Flagged by Analyzer 0 % (0-5); Neutrophil # 9.44 X10^3/uL (2.7-7.7); Neutrophil % 80.8 % (47-70); Platelet Count 328 K/mm3 (150-450); RBC Distribution Width CV 13.3 % (11.6-14.6); RBC Distribution Width SD 40.9 fl (35.1-43.9); White Blood Count 11.7 K/mm3 (4.4-11.0)
[2021-08-12 06:56] LABS: Anion Gap 8 (5-15); BUN 23 mg/dL (7-18); BUN/Creat Ratio 23.1 RATIO (10-20); Calcium,Total 9.9 mg/dL (8.5-10.1); Chloride 95 mmol/L (98-107); Creatinine, Serum 0.99 mg/dL (0.55-1.02); EST Glomerular Filtration Rate 59 mL/min (>60); Est Glom Filt Rate - Afr Amer 71 mL/min (>60); Estimated Creatinine Clearance 41.82 ml/min; Glucose 354 mg/dL (74-106); Magnesium 2.4 mg/dL (1.6-2.6); Phosphorus 3.5 mg/dL (2.5-4.9); Potassium 3.8 mmol/L (3.5-5.1); Sodium Level 134 mmol/L (136-145)
[2021-08-12 07:16] LABS: Bedside Glucose 422 mg/dL (70-110)
[2021-08-12 07:16] LABS: Bedside Glucose 360 mg/dL (70-110)
[2021-08-12] MEDS: Enoxaparin 40 MG/0.4 ML Syringe SC (08:39)
[2021-08-12] MEDS: Isosorbide Mononitrate 60 MG Tablet PO (08:40)
[2021-08-12] MEDS: Clopidogrel Bisulfate 75 MG Tablet PO (08:40)
[2021-08-12] MEDS: Pantoprazole Sodium 40 MG Tablet PO (08:40)
[2021-08-12] MEDS: Metoprolol Tartrate 25 MG Tablet 12.5 MG PO (08:40)
[2021-08-12] MEDS: Fluticasone 0.05% 1 SPRAY NASAL.SRY NASAL (08:41)
[2021-08-12] MEDS: Furosemide 40 MG/4 ML Vial IV (08:41)
[2021-08-12] MEDS: Insulin Lispro 100 UNIT/ML INSULN.PEN 15 UNIT SC ×2 (08:42→11:36)
[2021-08-12] MEDS: Insulin Lispro 100 UNIT/ML INSULN.PEN SC ×2 (08:43→11:37)
[2021-08-12] MEDS: 0.9% Saline Lock 10 ML Syringe IV (08:43)
[2021-08-12] MEDS: Potassium Chloride Oral Tablet 20 MEQ 40 MEQ PO (08:45)
[2021-08-12 09:25] LABS: Bedside Glucose 338 mg/dL (70-110)
--- NOTE | 2021-08-12 11:29 | PCM.DC ---
Discharge Instructions Diet Discharge Diet: 8 Cup Fluid Restriction and 2000 mg Sodium Diet Activity Discharge Activity: Return to Normal Activity and May Not Drive Weight Bearing Status: Weight bearing as tolerated Dressing / Incision Call your doctor if you observe: Fever of 101 or Higher, Coldness, Increased Pain, Numbness or Tingling, Change in Color, Inability to urinate, Inability to have a bowel movement, Shortness of breath, Dizziness, Fainting spells, Swelling in the ankles, Chest pain, Prolonged hiccupping, Increased palpitations (irregular heartbeat), Calf discomfort and Uncontrolled pain Follow Up Care Test Results: Test results from this visit will be discussed in further detail at your follow-up appointment, if applicable. Discharge Plan Admission Admit Date/Time: 08/11/21 02:23 Primary Reason for Your Visit: CHF exacerbation, Pulmonary HTN Attending Provider: Nico Sweet Primary Care Provider: Billy Madera Consulting Providers: Haroon Nuno ; Korey Fraser ; Michelle Givens [employer] Instructions Additional Instructions / Restrictions: Advised BMP in 1 week and follow with PCP/inbound customer service representative Dr. Lozano Discharge Orders/Prescriptions Prescriptions: New spironolactone 25 mg tablet 12.5 mg PO DAILY Qty: 30 RF: 0 furosemide 40 mg tablet 40 mg PO BID Qty: 60 RF: 0 Continued nitroglycerin 0.4 mg tablet, sublingual 0.4 mg SUBLINGUAL Q5-15M Qty: 25 RF: 3 (DME) pen needle, diabetic 32 gauge x 5/32 needle See Rx Instructions ea .ROUTE .MEDSUPPLY Qty: 50 RF: 0 (DME) Handicap Placard See Rx Instructions .ROUTE .MEDSUPPLY Qty: 1 RF: 0 fluticasone propionate [Flonase Allergy Relief] 50 mcg/actuation spray,suspension 1 spray intranasal DAILY Qty: 16 RF: 4 clobetasol 0.05 % cream 1 applic topical BID 14 Days Qty: 60 RF: 2 acetaminophen 500 MG tablet 1,000 mg PO TID PRN (Reason: Pain Or Fever) Qty: 1 RF: 0 Mucus Relief ER 1,200 mg Tablet Extended Release 12hr 1,200 mg PO BID Qty: 14 RF: 0 Basaglar KwikPen U-100 Insulin 100 unit/mL (3 mL) insulin pen 40 unit subcut DAILY 90 Days Qty: 32.4 RF: 3 ipratropium-albuterol 0.5 mg-3 mg(2.5 mg base)/3 mL solution for nebulization 3 ml INHALATION Q4H PRN PRN (Reason: SOB &/OR WHEEZING) Qty: 180 RF: 6 clopidogrel 75 mg tablet 75 mg PO DAILY Qty: 90 RF: 3 (DME) Accu-Chek Aundrea Plus test strp Strip See Rx Instructions .ROUTE .MEDSUPPLY Qty: 100 RF: 8 atorvastatin 80 mg tablet 80 mg PO QHS Qty: 90 RF: 3 (DME) FreeStyle Emily 2 [place] Misc See Rx Instructions .ROUTE .MEDSUPPLY Qty: 1 RF: 0 (DME) FreeStyle Emily 2 Sensor Kit See Rx Instructions .ROUTE .MEDSUPPLY Qty: 2 RF: 12 albuterol sulfate 90 mcg/actuation HFA aerosol inhaler 2 puff INHALATION Q6H PRN (Reason: shortness of breath or wheezing) Qty: 18 RF: 3 calcipotriene 0.005 % cream 1 applic topical DAILY Qty: 120 RF: 0 metoprolol tartrate 25 mg tablet 12.5 mg PO BID Qty: 90 RF: 3 metformin 500 mg tablet extended release 24 hr 1,000 mg PO QPM Qty: 180 RF: 3 risperidone 1 mg tablet 1 mg PO QHS Qty: 90 RF: 1 isosorbide mononitrate 60 mg tablet extended release 24 hr 60 mg PO DAILY Qty: 30 RF: 11 pantoprazole 40 mg tablet,delayed release (DR/EC) 40 mg PO DAILY Qty: 90 RF: 1 alprazolam 0.25 mg tablet 0.25 mg PO DAILY PRN (Reason: Anxiety) Qty: 30 RF: 0 citalopram 40 mg tablet 40 mg PO QHS Qty: 90 RF: 1 Changed insulin lispro [Humalog KwikPen Insulin] 100 unit/mL insulin pen 15 unit SC TID Qty: 0 RF: 0 Discontinued buspirone 5 mg Tablet 10 mg PO BID Qty: 60 RF: 0 dexamethasone 6 mg tablet 6 mg PO DAILY Qty: 5 RF: 0 furosemide [Lasix] 20 mg tablet 20 mg PO DAILY Qty: 30 RF: 0 Referrals / Follow Up: Haroon Nuno MD [STAFF PHYSICIAN] - Within 1 Month (COPD, secondary pulmonary hypertension) Billy Madera MD [Primary Care Provider] - In 1 Week (CHF exacerbation) Ethan Lozano MD [STAFF PHYSICIAN] - Within 2 Weeks (CHF exacerbation) Disposition Discharge Orders: Discharge Patient (Routine); Ordered 08/12/21 Ordered By: Dr. Nico Sweet
--- NOTE | 2021-08-12 11:44 | DS.PCM_ITS ---
Providers Date of Admission: 08/11/21 Primary Care Physician: Dr. Billy Madera MD Consultations 08/11/21 07:23 Consult: Food Technologist / Pulmonary Medicine Routine Consulting Provider: Pulmonary Medicine [facility] [place] Reason for Consult: acute dyspnea, worsening of CXR, COPD, CHF EMERGENT Consult: No MD Notified: Yes Date Notified: 08/11/21 Time Notified: 07:45 Method of Notification: Text Reason For Visit: FLASH PULMONARY EDEMA Diagnosis Discharge Diagnosis (1) Flash pulmonary edema: Status: Acute Code(s): J81.0 - Acute pulmonary edema (2) Acute and chronic respiratory failure with hypoxia: Status: Chronic Code(s): J96.21 - Acute and chronic respiratory failure with hypoxia Medications at Discharge Home Medications acetaminophen 1,000 mg PO TID PRN #1 tab 03/16/20 ipratropium 0.5 mg-albuterol 3 mg (2.5 mg base)/3 mL nebulization soln 3 ml INHALATION Q4H PRN PRN #180 ml 07/11/20 nitroglycerin 0.4 mg sublingual tablet 0.4 mg SUBLINGUAL Q5-15M #25 tab 08/13/20 clopidogrel 75 mg tablet 75 mg PO DAILY #90 tab 10/08/20 blood sugar diagnostic #100 each 11/05/20 pen needle, diabetic 32 gauge x 32 #50 ea 12/06/20 atorvastatin 80 mg tablet 80 mg PO QHS #90 tab 12/09/20 Handicap Placard #1 ea 12/12/20 flash glucose scanning reader #1 ea 01/31/21 flash glucose sensor #2 ea 01/31/21 albuterol sulfate 90 mcg/actuation aerosol inhaler 2 puff INHALATION Q6H PRN #18 g 02/06/21 calcipotriene 0.005 % topical cream 1 applic TOPICAL DAILY #120 g 03/07/21 clobetasol 0.05 % topical cream 1 applic TOPICAL BID 14 Days #60 g 03/10/21 metoprolol tartrate 25 mg tablet 12.5 mg PO BID #90 tab 04/25/21 fluticasone propionate 50 mcg/actuation nasal spray,suspension 1 spray INTRANASAL DAILY #16 g 04/29/21 metformin 500 mg tablet,extended release 24 hr 1,000 mg PO QPM #180 tab 06/10/21 risperidone 1 mg tablet 1 mg PO QHS #90 tab 06/11/21 isosorbide mononitrate 60 mg tablet,extended release 24 hr 60 mg PO DAILY #30 tab 06/20/21 pantoprazole 40 mg tablet,delayed release 40 mg PO DAILY #90 tab 07/10/21 alprazolam 0.25 mg tablet 0.25 mg PO DAILY PRN #30 tab 07/16/21 citalopram 40 mg tablet 40 mg PO QHS #90 tab 07/23/21 Basaglar KwikPen U-100 Insulin 40 unit SUBCUT DAILY 90 Days #32.4 ml 08/10/21 Mucus Relief ER 1,200 mg PO BID #14 tab 08/10/21 furosemide 40 mg PO BID #60 tab 08/12/21 insulin lispro [Humalog KwikPen Insulin] 15 unit SC TID #0 ml 08/12/21 spironolactone 12.5 mg PO DAILY #30 tab 08/12/21 Hospital Course Summary of Care Provided Hospital Course: This is a 71-year-old female was admitted for palpitation along with dyspnea after 1 day of discharge, patient was advised for COPD examination/anxiety and panic attack. Chest x-ray shows pulmonary congestion/edema. Patient also had elevated troponins. 1. Acute on chronic respiratory failure with hypoxia most likely due to acute on chronic diastolic heart failure: Patient had significant improvement after Lasix. Heart failure core measures including intake and output, fluid restriction less than 1500 mL, daily weight monitoring, kidney and electrolytes monitoring were followed. Chest x-ray shows bilateral alveolar opacity stable fluid but CT chest showed no acute consolidation. EKG nonischemic ST-T changes. Serial isolated troponins elevated. BNP mildly elevated. Patient denied chest pain. Lasix 40 mg IV twice daily. Patient had echo in July 2020 shows EF 60%, mild MR, mild TR, RVSP 37 mmHg. Cardiac catheterization on 09/23/2020 left ventricular ejection fraction by LV gram was 55%. On BiPAP. Repeat echo shows EF 60%, moderate concentric LVH stage I diastolic dysfunction, PASP 40 mmHg. Mild hypokalemia: Potassium replaced. On metoprolol, Plavix, atorvastatin Patient is discharged on Lasix 40 mg oral daily along with spironolactone. Potassium supplement discontinued. 2. Anxiety disorder with panic attack: BuSpar a discontinued. On scheduled Atarax. Xanax as needed ordered. 3. Hypertension: Blood pressure fluctuates between 128/56-154/64. Blood pre ssure controlled. Last one 127/69. 4. Diabetes mellitus type II: Accu-Cheks glucose is uncontrolled and high, between 200-395. Started on Humalog 10 units subcutaneous 3 times daily AC. Lantus insulin dose increased. Carb controlled diet. Patient heart rate is in 60s to 70s per minute, on metoprolol 12.5 mg twice daily. Prescription given for Lasix 40 mg p.o. twice daily spironolactone 12.5 mg p.o. once daily. Advised BMP in 1 week and follow with PCP/transport pilot Dr. Lozano. Discharged home. Patient on baseline 5 L of oxygen at home Discharge medication reconciliation done. Discharge follow-up instructions completed. Discharge process discussed with the patient and all questions were answered to patient's satisfaction. Total time spent, exact 35 minutes on discharge meds reconciliation, examination, coordination of care with nurses and ancillary staff, review of imaging and blood test and discussion with the patient on follow-up instructions Physical Exam Narrative Shortness of breath is much improved. Denies chest pain. BuSpar has been discontinued. On Xanax, she knows that she has to take once daily as needed. Wants to go home. General: Alert, Oriented x3, Cooperative HEENT: Atraumatic, PERRLA, EOMI, Normocephalic Oral: No Gingival or Mucosal Lesions/ Ulcerations Neck: Supple, No JVD, Negative Carotid Bruits Lungs: Air entry equal in bilateral lung bases. No crepitation/rhonchi. No tachypnea. On 5 L of oxygen Cardiovascular: Regular rate, Regular Rhythm, Normal S1, Normal S2, No murmurs Abdomen: Soft, Non Tender, not distended, bowel sounds present : No renal angle tenderness. No suprapubic tenderness. Extremities: No significant edema, Capillary Refill Less than 3 Seconds Skin: No rashes, No breakdown Musculoskeletal: No Tenderness to Palpation of Joints or Extremities Neurological: Cranial nerves II-XII grossly intact, DTR 2+/4 and Symmetrical, Neuro grossly intact Psych/Mental Status: Anxiety disorder Weight / BMI Weight Weight: 220 lb 7.396 oz Body Mass Index (BMI) 40.7 ABG / Lab / Microbiology Data Result Diagrams: 08/12/21 06:03 08/12/21 06:03 Laboratory: Laboratory Results - last 24 hr 08/11/21 11:57: POC Glucose 207 H 08/11/21 16:30: POC Glucose 294 H 08/11/21 21:13: POC Glucose 422 H 08/11/21 21:15: POC Glucose 360 H 08/12/21 06:03: WBC 11.7 H, RBC 3.60 L, Hgb 9.2 L, Hct 30.4 L, MCV 84.4, MCH 25.6 L, MCHC 30.3 L, RDW Std Deviation 40.9, RDW Coeff of Malcom 13.3, Plt Count 328, MPV 11.3, Immature Gran % (Auto) 0.700, Neut % (Auto) 80.8 H, Lymph % (Auto) 10.9 L, [place] % (Auto) 6.8, Eos % (Auto) 0.3, Baso % (Auto) 0.5, Absolute Neuts (auto) 9.4 H, Absolute Lymphs (auto) 1.27, Nucleated RBC % 0 08/12/21 06:03: Sodium 134 L, Potassium 3.8, Chloride 95 L, Carbon Dioxide 31.0, Anion Gap 8, BUN 23 H, Creatinine 0.99, Estim Creat Clear Calc 41.82, Est GFR (MDRD) Af Amer 71, Est GFR (MDRD) Non-Af 59 L, BUN/Creatinine Ratio 23.1 H, Glucose 354 H, Calcium 9.9, Phosphorus 3.5, Magnesium 2.4 08/12/21 08:35: POC Glucose 338 H Radiography Diagnostic Testing: Radiology Impression Echocardiogram 08/11/21 03:31 Interpretation Summary Normal LV size. Moderate concentric left ventricular hypertrophy. Left ventricular systolic function is normal. The estimated ejection fraction is 60 %. Pulmonary artery systolic pressure is 40 mmHg. Stage 1 diastolic dysfunction. Contrast injection was performed. Ordering Physician: Yuan Singh Referring Physician: Billy Madera Performed By: Katlyn Cho RDCS, RVT Meaningful Use Info Meaningful Use Diagnoses (Choose all that apply): None applicable Discharge Plan Admission Admit Date/Time: 08/11/21 02:23 Primary Reason for Your Visit: CHF exacerbation, Pulmonary HTN Attending Provider: Nico Sweet Primary Care Provider: Billy Madera Consulting Providers: Haroon Nuno ; Korey Fraser ; Michelle Givens COOPER APPRENTICE Instructions Additional Instructions / Restrictions: Advised BMP in 1 week and follow with PCP/transport pilot Dr. Lozano Discharge Orders/Prescriptions Prescriptions: New spironolactone 25 mg tablet 12.5 mg PO DAILY Qty: 30 RF: 0 furosemide 40 mg tablet 40 mg PO BID Qty: 60 RF: 0 Continued nitroglycerin 0.4 mg tablet, sublingual 0.4 mg SUBLINGUAL Q5-15M Qty: 25 RF: 3 (DME) pen needle, diabetic 32 gauge x 5/32 needle See Rx Instructions ea .ROUTE .MEDSUPPLY Qty: 50 RF: 0 (DME) Handicap Placard See Rx Instructions .ROUTE .MEDSUPPLY Qty: 1 RF: 0 fluticasone propionate [Flonase Allergy Relief] 50 mcg/actuation spray,suspension 1 spray intranasal DAILY Qty: 16 RF: 4 clobetasol 0.05 % cream 1 applic topical BID 14 Days Qty: 60 RF: 2 acetaminophen 500 MG tablet 1,000 mg PO TID PRN (Reason: Pain Or Fever) Qty: 1 RF: 0 Mucus Relief ER 1,200 mg Tablet Extended Release 12hr 1,200 mg PO BID Qty: 14 RF: 0 Basaglar KwikPen U-100 Insulin 100 unit/mL (3 mL) insulin pen 40 unit subcut DAILY 90 Days Qty: 32.4 RF: 3 ipratropium-albuterol 0.5 mg-3 mg(2.5 mg base)/3 mL solution for nebulization 3 ml INHALATION Q4H PRN PRN (Reason: SOB &/OR WHEEZING) Qty: 180 RF: 6 clopidogrel 75 mg tablet 75 mg PO DAILY Qty: 90 RF: 3 (DME) Accu-Chek [place] Plus test strp Strip See Rx Instructions .ROUTE .MEDSUPPLY Qty: 100 RF: 8 atorvastatin 80 mg tablet 80 mg PO QHS Qty: 90 RF: 3 (DME) FreeStyle Emily 2 [place] Misc See Rx Instructions .ROUTE .MEDSUPPLY Qty: 1 RF: 0 (DME) FreeStyle Emily 2 Sensor Kit See Rx Instructions .ROUTE .MEDSUPPLY Qty: 2 RF: 12 albuterol sulfate 90 mcg/actuation HFA aerosol inhaler 2 puff INHALATION Q6H PRN (Reason: shortness of breath or wheezing) Qty: 18 RF: 3 calcipotriene 0.005 % cream 1 applic topical DAILY Qty: 120 RF: 0 metoprolol tartrate 25 mg tablet 12.5 mg PO BID Qty: 90 RF: 3 metformin 500 mg tablet extended release 24 hr 1,000 mg PO QPM Qty: 180 RF: 3 risperidone 1 mg tablet 1 mg PO QHS Qty: 90 RF: 1 isosorbide mononitrate 60 mg tablet extended release 24 hr 60 mg PO DAILY Qty: 30 RF: 11 pantoprazole 40 mg tablet,delayed release (DR/EC) 40 mg PO DAILY Qty: 90 RF: 1 alprazolam 0.25 mg tablet 0.25 mg PO DAILY PRN (Reason: Anxiety) Qty: 30 RF: 0 citalopram 40 mg tablet 40 mg PO QHS Qty: 90 RF: 1 Changed insulin lispro [Humalog KwikPen Insulin] 100 unit/mL insulin pen 15 unit SC TID Qty: 0 RF: 0 Discontinued buspirone 5 mg Tablet 10 mg PO BID Qty: 60 RF: 0 dexamethasone 6 mg tablet 6 mg PO DAILY Qty: 5 RF: 0 furosemide [Lasix] 20 mg tablet 20 mg PO DAILY Qty: 30 RF: 0 Referrals / Follow Up: Haroon Nuno MD [STAFF PHYSICIAN] - Within 1 Month (COPD, secondary pulmonary hypertension) Billy Madera MD [Primary Care Provider] - In 1 Week (CHF exacerbation) Ethan Lozano MD [STAFF PHYSICIAN] - Within 2 Weeks (CHF exacerbation) Disposition Disposition (needs filled in before D/C Order can be placed): Home, Self Care Charges/Coding Visit Charges Inpatient E&M: 80192 Disch Hosp
[2021-08-12 11:45] LABS: Bedside Glucose 254 mg/dL (70-110)
--- NOTE | 2021-08-12 11:46 | CASEMGMT ---
Addendum entered by Jyoti Herndon 08/12/21 12:13: Per Selene, pt does not qualify for increased home oxygen at this time, but states would like someone to call her an ambulette w/ oxygen(as she does not have oxygen tank with her) to get home. Lauryn, PCU medical office secretary, updated, voices understanding. Julio Cesar CANSECO CM Original Note: Per therapy, pt has no need for any further therapy at discharge. This RN CM to room and pt declines need for HHC at discharge. Pt is on home oxygen, 5L continuous and pt to be tested on this prior to discharge. Pt voices no further questions/concerns/needs. Julio Cesar CANSECO CM
--- NOTE | 2021-08-12 13:33 | PCM.PN.INT ---
Assessment & Plan Assessment/Plan (1) Acute and chronic respiratory failure with hypoxia: (2) Heart palpitations: (3) Dermatomyositis: (4) Type 2 diabetes mellitus: QUALIFIERS: Diabetes mellitus intermediate insulin use: with medical terminologist use Diabetes mellitus complication status: with hyperglycemia Qualified Code(s): E11.65 - Type 2 diabetes mellitus with hyperglycemia; Z79.4 - care home (current) use of insulin (5) CHF (congestive heart failure): PLAN: RECOMMENDATIONS: 1. No indication for antibiotics or prednisone from my perspective 2. Aggressive control of blood pressure 3. Wean oxygen as tolerated 4. Aggressive treatment of fluid status. Encourage compliance with home Lasix and low-salt diet 5. Follow-up as previously scheduled in the office IMPRESSIONS: 1. Acute on chronic combined respiratory failure Exact etiology is unclear at this time. Patient did have rapid recovery following Lasix making congestive heart failure or flash pulmonary edema a significant concern. Patient does have significant underlying obstructive lung disease but this is likely contributing, not the etiology of presentation. Okay to continue with baseline inhalers on discharge. Low clinical suspicion for concomitant infectious etiology. Aggressive diuresis over the next 24 to 48 hours. Patient does qualify for discharge given walking oximetry. Patient does admit to increased salt intake recently. Patient also has a history of noncompliance with Lasix therapy and MARK making readmission more likely. 2. Hypertensive emergency/anxiety disorder Patient with significant decompensation when systolics were greater than 170. Unclear if this is related to anxiety versus having anxiety as a result of her pulmonary edema. Aggressively control blood pressure. Defer to primary service if cardiology needs to be involved. 3. 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 We will watch H&H's this patient does have some anemia. Patient would likely benefit from nocturnal CPAP, but has not tolerated this in the past. Subjective Subjective Patient did well overnight. No acute issues were reported. Patient subjectively feels improved compared to yesterday. Patient did have a walking oximetry earlier in the day and was able to tolerate ambulation on 5 L or less. Objective Data Objective Data Vital Signs: Vital Signs Temp Pulse Resp BP Pulse Ox 36.4 C L 70 18 127/69 H 93 08/12/21 11:44 08/12/21 11:44 08/12/21 11:44 08/12/21 11:44 08/12/21 11:47 Oxygen Flow Rate (L/min) [ 5 AMBULATING with Oxygen #1] Oxygen Flow Rate (L/min) [At 5 REST with Oxygen] Oxygen Flow Rate (L/min) 5 Oxygen Delivery Method Nasal Cannula Weight: 100 kg Body Mass Index (BMI) 40.7 Intake & Output: Intake and Output for Last 24 Hours 08/10/21 08/11/21 08/12/21 23:59 23:59 23:59 Intake Total 910 / 910 320 / 320 Output Total 200 / 200 900 / 900 Balance 710 / 710 -580 / -580 Lab / Micro Data Result Diagrams: 08/12/21 06:03 08/12/21 06:03 Labs: Laboratory Results - last 24 hr 08/11/21 16:30: POC Glucose 294 H 08/11/21 21:13: POC Glucose 422 H 08/11/21 21:15: POC Glucose 360 H 08/12/21 06:03: WBC 11.7 H, RBC 3.60 L, Hgb 9.2 L, Hct 30.4 L, MCV 84.4, MCH 25.6 L, MCHC 30.3 L, RDW Std Deviation 40.9, RDW Coeff of Malcom 13.3, Plt Count 328, MPV 11.3, Immature Gran % (Auto) 0.700, Neut % (Auto) 80.8 H, Lymph % (Auto) 10.9 L, [place] % (Auto) 6.8, Eos % (Auto) 0.3, Baso % (Auto) 0.5, Absolute Neuts (auto) 9.4 H, Absolute Lymphs (auto) 1.27, Nucleated RBC % 0 08/12/21 06:03: Sodium 134 L, Potassium 3.8, Chloride 95 L, Carbon Dioxide 31.0, Anion Gap 8, BUN 23 H, Creatinine 0.99, Estim Creat Clear Calc 41.82, Est GFR (MDRD) Af Amer 71, Est GFR (MDRD) Non-Af 59 L, BUN/Creatinine Ratio 23.1 H, Glucose 354 H, Calcium 9.9, Phosphorus 3.5, Magnesium 2.4 08/12/21 08:35: POC Glucose 338 H 08/12/21 11:33: POC Glucose 254 H Physical Exam Const alert, oriented x3 and no apparent distress General Appearance: cooperative and well developed Nutritional Appearance: morbidly obese HEENT normocephalic, head/scalp atraumatic and moist oral mucous membranes Eyes PERRL and EOMs intact bilaterally Neck full ROM and no lymphadenopathy Chest inspection of chest normal Chest: symmetrical chest wall rise; Negative for crepitus Resp Auscultation: diminished lung sounds; Negative for rales, rhonchi or wheezes Percussion: Negative for dullness Cardio regular rate, regular rhythm, S1 normal heart sound, S2 normal heart sound, no murmurs, no rub and no gallops GI normal to inspection, nondistended, normoactive bowel sounds no CVA tenderness Extremity General Extremity: clubbing and edema bilateral lower extremity; Negative for cyanosis Skin no rashes or lesions noted Neuro oriented x3, CN's II-XII intact bilaterally, moves all extremities and no focal motor deficits Psych cooperative and affect normal Charges/Coding Visit Charges Inpatient E&M: 27461 Subs Hosp L2
== END 2021-08-12 14:00 | disposition home or self-care (01) | DRG 291 ==
LOC: ED 08-11 02:23 → PCU 08-11 02:55
PROVIDERS: Admitting Provider Hospitalist; Emergency Provider Emergency Medicine; PCP Internal Medicine; Visit Provider Internal Medicine
DX: I11.0 Hypertensive heart disease with heart failure (principal); I50.33 Acute on chronic diastolic (congestive) heart failure; J96.21 Acute and chronic respiratory failure with hypoxia; J44.1 Chronic obstructive pulmonary disease with (acute) exacerbation; I16.1 Hypertensive emergency; Z68.41 Body mass index [BMI] 40.0-44.9, adult; M33.11 Other dermatomyositis with respiratory involvement; I25.10 Atherosclerotic heart disease of native coronary artery without angina pectoris; E87.6 Hypokalemia; E11.65 Type 2 diabetes mellitus with hyperglycemia; E78.5 Hyperlipidemia, unspecified; E66.01 Morbid (severe) obesity due to excess calories; G47.33 Obstructive sleep apnea (adult) (pediatric); F41.0 Panic disorder [episodic paroxysmal anxiety]; F32.A Depression, unspecified; L40.9 Psoriasis, unspecified; Z91.14 Patient's other noncompliance with medication regimen; Z95.5 Presence of coronary angioplasty implant and graft; Z99.81 Dependence on supplemental oxygen; Z79.84 Long term (current) use of oral hypoglycemic drugs; Z79.4 Long term (current) use of insulin; Z79.02 Long term (current) use of antithrombotics/antiplatelets; Z79.899 Other long term (current) drug therapy; Z87.891 Personal history of nicotine dependence; Z87.01 Personal history of pneumonia (recurrent); Z87.19 Personal history of other diseases of the digestive system
CPT/HCPCS: 36415; 71045; 71275; 74019; 80048; 82962; 83735; 83880; 84100; 84484; 85025; 87426; 87804; 87807; 93005; 93306; 94002; 94003; 94640; 94667; 96365; 96372; 96375; 97161; 97166; 97530; 97535; 97802; 99218; 99251; 99285; J7050; Q9957; Q9967; A4216; C8929; G0378; G0463; J1940

== ENCOUNTER 2021-10-11 23:14 | Observation (INO) | payer MEDICARE, SELFPAY ==
[2021-03-07 16:44] VITALS: BMI 34.9
[2021-10-11 23:15] VITALS: BP 176/93; PULSE 107; RESP 20; TEMP 36.2; O2SAT 96; O2SAT 99; BMI 42.3
[2021-10-11 23:20] VITALS: O2SAT 95
--- NOTE | 2021-10-11 23:28 | EKG12_ITS ---
Test Reason : SOB Blood Pressure : / mmHG Vent. Rate : 097 BPM Atrial Rate : 097 BPM P-R Int : 144 ms QRS Dur : 084 ms QT Int : 366 ms P-R-T Axes : 061 022 050 degrees QTc Int : 464 ms Normal sinus rhythm Normal ECG Confirmed by BANG MELVIN, ROSALIA ([id number]), tape editor JAVIER COLBY ([id number]) on 10/13/2021 10:47:42 AM Referred By: BB Confirmed By:ROSALIA CUENCA MD
[2021-10-11 23:44] LABS: Absolute Lymphocyte Count 1.79 X10^3/uL (0.83-4.51); Absolute Neutrophil Count 8.4 X10^3/uL (2.0-7.7); Basophil# 0.08 X10^3/uL; Basophil% 0.7 % (0-1); Eosinophil# 0.19 X10^3/uL; Eosinophils% 1.7 % (0-5); Hematocrit 32.3 % (37-47); Hemoglobin 9.9 g/dL (12.0-15.0); Lymphocyte # 1.79 X10^3/ul (0.83-4.51); Lymphocyte % 16.1 % (19-41); Mean Corp Hgb Conc 30.7 g/dL (32-36); Mean Corpuscular Hgb 25.2 pg (27.0-32.0); Mean Corpuscular Volume 82.2 fL (81-99); Mean Platelet Vol. 11.3 fl (6.2-12.0); Monocyte# 0.61 X10^3/uL; Monocyte% 5.5 % (0-10); NRBC Flagged by Analyzer 0 % (0-5); Neutrophil # 8.41 X10^3/uL (2.7-7.7); Neutrophil % 75.4 % (47-70); Platelet Count 348 K/mm3 (150-450); RBC Distribution Width CV 13.6 % (11.6-14.6); RBC Distribution Width SD 40.6 fl (35.1-43.9); Red Blood Count 3.93 M/mm3 (4.2-5.4); White Blood Count 11.2 K/mm3 (4.4-11.0)
[2021-10-11 23:45] VITALS: PULSE 97; RESP 12; RESP 27; O2SAT 97
--- NOTE | 2021-10-11 23:52 | RAD_ITS ---
STUDY: X-RAY CHEST REASON FOR EXAM: Female, 71 years old patient with shortness of breath. TECHNIQUE: Single AP portable view of the chest. COMPARISON: 08/11/2021. FINDINGS: Cardiac monitoring leads are present. Lungs are expanded. There is heterogeneous right basilar airspace consolidation suggesting pneumonia. There appear to be small pleural effusions, left larger than right. There is borderline cardiomegaly. Normal mediastinum and wallace. There is prominence of the pulmonary hilar arteries without peripheral pulmonary vascular congestion. There is atherosclerotic calcification of the aortic arch with tortuosity. There is demineralization of the osseous structures. There is residual deformity of the right-sided ribs suggesting old rib fractures. There is no demonstrated abnormality of the visualized soft tissue structures of the upper abdomen. RAD/Chest 1 View (Portable) IMPRESSION: 1. Heterogeneous right basilar airspace consolidation suggests pneumonia. 2. Bilateral pleural effusions. Electronically Signed: Lala Richard MD at 0:07 EST ,
[2021-10-11] MEDS: Furosemide 40 MG/4 ML Vial IV (23:56)
[2021-10-11 23:58] LABS: Anion Gap 8 (5-15); BUN 8 mg/dL (7-18); BUN/Creat Ratio 8.7 RATIO (10-20); Calcium,Total 9.1 mg/dL (8.5-10.1); Chloride 100 mmol/L (98-107); Creatinine, Serum 0.92 mg/dL (0.55-1.02); EST Glomerular Filtration Rate 64 mL/min (>60); Est Glom Filt Rate - Afr Amer 77 mL/min (>60); Glucose 424 mg/dL (74-106); Potassium 3.9 mmol/L (3.5-5.1); Sodium Level 136 mmol/L (136-145); Troponin-I HS 14 pg/mL (3.0-54.0)
[2021-10-12] VITALS (26 sets, daily range): BP systolic 99–156; BP diastolic 44–79; PULSE 63–98; RESP 14–42; TEMP 36.3–36.8; O2SAT 72–100; BMI 37.2
[2021-10-12 00:07] LABS: BNP,B-Type NATRIURETIC PEPTIDE 154.1 pg/mL (0-100)
[2021-10-12] MEDS: Insulin Lispro 100 UNIT/ML INSULN.PEN 14 UNIT SC (00:19)
--- NOTE | 2021-10-12 00:38 | EDS_ITS ---
HPI History of Present Illness Chief Complaint: Shortness of Breath Informant: patient Onset/Context/Timing Onset: Days (3) Context: gradual Timing: Continuous Quality: Positive for Dyspnea on exertion and Orthopnea Current Severity: Severe Maximum Severity: Severe Worsened by: Exertion and Lying flat Relieved by: Rest (In sitting up but not helping tonight); Not Relieved By Albuterol Associated Symptoms cough Chest Pain: Positive for Intermittent (Just left of sternum and lower chest/epigastrium) and Dull Narrative Narrative: Patient complaining of orthopnea. She states she is not having much dyspnea with exertion or dyspnea during the day, but for the last 3 nights she has been very short of breath to lie down especially tonight and not better when sitting up. Some chest discomfort started this evening, she states it was there for couple hours and right now it is not present anymore but her abdomen feels bloated. She told the nurse that she ate a bag of chips and some dip a little earlier as well. She has a history of congestive heart failure. No edema in her legs lately. She has been coughing but has been nonproductive. No fevers or chills. No contact with anyone else with illness recently. She usually wears 5 L at home because of her COPD. She tried some albuterol treatments and it did not help at all. [facility] Medical History Asthma with COPD Atherosclerotic heart disease of [place] coronary artery without angina pectoris Back pain Bilateral pneumonia CHF (congestive heart failure) Chronic respiratory failure Constipation COPD (chronic obstructive pulmonary disease) Depression Diabetes Former smoker Health care maintenance Heart disease Hepatitis History of constipation HLD (hyperlipidemia) Hypertension Lung disease MARK (obstructive sleep apnea) Pneumonia Psoriasis Smoking greater than 40 pack years SOB (shortness of breath) Type 2 diabetes mellitus Home Medications acetaminophen 1,000 mg PO TID PRN #1 tab 03/16/20 [Rx Last Taken 08/08/21] nitroglycerin 0.4 mg sublingual tablet 0.4 mg SUBLINGUAL Q5-15M #25 tab 08/13/20 [Rx Last Taken Unknown] blood sugar diagnostic #100 each 11/05/20 [Rx Last Taken Unknown] pen needle, diabetic 32 gauge x #50 ea 12/06/20 [History Last Taken Unknown] atorvastatin 80 mg tablet 80 mg PO QHS #90 tab 12/09/20 [Rx Last Taken 08/08/21] Handicap Placard #1 ea 12/12/20 [Rx Last Taken Unknown] flash glucose scanning reader #1 ea 01/31/21 [Rx Last Taken Unknown] flash glucose sensor #2 ea 01/31/21 [Rx Last Taken Unknown] calcipotriene 0.005 % topical cream 1 applic TOPICAL DAILY #120 g 03/07/21 [Rx Last Taken Unknown] clobetasol 0.05 % topical cream 1 applic TOPICAL BID 14 Days #60 g 03/10/21 [Rx Last Taken Unknown] metoprolol tartrate 25 mg tablet 12.5 mg PO BID #90 tab 04/25/21 [Rx Last Taken 08/08/21] fluticasone propionate 50 mcg/actuation nasal spray,suspension 1 spray INTRANASAL DAILY #16 g 04/29/21 [Rx Last Taken 08/08/21] risperidone 1 mg tablet 1 mg PO QHS #90 tab 06/11/21 [Rx Last Taken 08/08/21] pantoprazole 40 mg tablet,delayed release 40 mg PO DAILY #90 tab 07/10/21 [Rx Last Taken 08/08/21] citalopram 40 mg tablet 40 mg PO QHS #90 tab 07/23/21 [Rx Last Taken 08/08/21] Mucus Relief ER 1,200 mg PO BID #14 tab 08/10/21 [Rx Last Taken Unknown] spironolactone 12.5 mg PO DAILY #30 tab 08/12/21 [Rx Last Taken Unknown] albuterol sulfate 90 mcg/actuation aerosol inhaler 2 puff INHALATION Q6H PRN #18 g 08/15/21 [Rx Last Taken Unknown] docusate sodium 100 mg capsule 100 mg PO BID PRN #180 cap 08/19/21 [Rx Last Taken Unknown] insulin lispro 100 unit/mL subcutaneous pen 17 unit SC TID 90 Days #45.9 ml 08/19/21 [Rx Last Taken Unknown] montelukast 10 mg tablet 10 mg PO QHS #90 tab 08/26/21 [Rx Last Taken Unknown] isosorbide mononitrate 60 mg tablet,extended release 24 hr 60 mg PO DAILY #30 tab 09/09/21 [Rx Last Taken Unknown] ipratropium 0.5 mg-albuterol 3 mg (2.5 mg base)/3 mL nebulization soln 3 ml INHALATION Q4H PRN PRN #180 ml 09/10/21 [Rx Last Taken Unknown] clopidogrel 75 mg tablet 75 mg PO DAILY #90 tab 10/06/21 [Rx Last Taken Unknown] alprazolam 0.25 mg tablet 0.25 mg PO DAILY PRN #30 tab 10/10/21 [Rx Last Taken Unknown] furosemide 40 mg PO DAILY 10/12/21 [History Last Taken Unknown] insulin glargine [Basaglar KwikPen U-100 Insulin] 36 unit SUBCUT DAILY 10/12/21 [History Last Taken Unknown] Allergy/AdvReac Type Severity Reaction Status Date / Time amoxicillin [Amoxicillin] Allergy Intermediate Rash Verified 10/11/21 23:19 gabapentin [From Neurontin] Allergy Shortness Verified 10/11/21 23:19 of breath levofloxacin [From Levaquin] Allergy Hives Verified 10/11/21 23:19 pseudoephedrine HCl Allergy Shortness Verified 10/11/21 23:19 [From Sudafed] of breath red dye Allergy Hives Verified 10/11/21 23:19 prednisone AdvReac Severe mean mood Verified 10/11/21 23:19 codeine AdvReac HEADACHE Verified 10/11/21 23:19 Family History Brother Heart disease Mother Colon cancer Heart disease Surgical History History of cholecystectomy History of left heart catheterization (LHC) (~09/23/20) Stented coronary artery (12/28/18) Social History Smoking Status: Former smoker pack-years: 40 how long ago did patient quit smokin year ago alcohol intake: never substance use type: does not use caffeine: Yes Type: carbonated beverages and tea what type of physical activity do you participate in: none ROS ROS ED Constitutional Constitutional ED: Reports malaise; Denies body ache(s), chills or fever(s) Eyes Eyes: Denies change in vision or diplopia ENT ENT ED: Denies rhinorrhea or sore throat Cardiovascular Cardiovascular: Reports chest pain and orthopnea; Denies palpitations or pedal edema Respiratory/Chest Respiratory/Chest: Reports cough, dyspnea and orthopnea Gastrointestinal Gastrointestinal: Denies abdominal pain, diarrhea, nausea or vomiting Genitourinary Genitourinary ED: Denies dysuria or hematuria Musculoskeletal Musculoskeletal: Denies back pain, myalgias or neck pain Integumentary Denies abscess or rash Neurologic Neurologic: Denies headache(s), paresthesias or weakness Psychiatric Psychiatric: Denies anxiety or suicidal thoughts EXAM Physical Exam Const Vital Signs: 10/11/21 23:15 10/11/21 23:20 10/11/21 23:45 Temperature 97.2 F L Temperature Source Temporal Pulse Rate 107 H 97 Respiratory Rate 20 H 27 H Respiratory Effort Short of Breath Respiratory Pattern Tachypnea Blood Pressure 176/93 H Blood Pressure Mean 120 Pulse Ox 96 97 Oxygen Delivery Method Nasal Cannula Nasal Cannula Oxygen Flow Rate (L/min) 5 5 Fraction of Inspired Oxygen (FIO2) 35 Positive well nourished and well developed General Appearance ED: well developed and NAD Nutritional Appearance: morbidly obese HEENT Reports moist mucous membranes normocephalic and atraumatic Eyes PERRL and EOMs intact bilaterally Neck full ROM, supple and no JVD Neck Narrative: JVD exam limited by obesity Resp Resp Narrative: Mild-moderate respiratory distress. End expiratory wheezes and diminished at the bases Cardio regular rate, regular rhythm and no murmurs GI non-distended GI Narrative: Tender epigastrium and right upper quadrant more so than left upper quadrant. The rest of her abdomen is benign. Morbidly obese limits exam. Auscultation: normoactive bowel sounds Palpation: soft Back/Spine no CVA tenderness General Back: other FROM Extremity normal to inspection and no calf tenderness General Extremety ED: Negative for edema, pulses abnormal or tenderness General Extremity: Negative for edema or pulses abnormal Neuro oriented x3, CN's II-XII intact bilaterally and no sensory deficits noted Sensorium / Orientation: awake and alert Motor Exam: strength 5/5 throughout Skin no rashes or lesions noted and no wounds MDM MDM MDM Narrative Medical decision making narrative: Patient was initially treated with BiPAP as well as Lasix 40 mg IV; she states she has not taken her nighttime dose yet tonight and she cannot remember but she may have missed last night's dose as well. Radiology suggesting this is pneumonia. I am concerned he might also be a component of CHF here. Her BNP is elevated but not very high. We will start her on antibiotics, she is breathing much better on BiPAP, and admit to PCU. Lab Data Attestation: I reviewed the patient's lab results. Labs: Laboratory Results - last 24 hr 10/11/21 10/11/21 10/11/21 23:25 23:25 23:25 WBC 11.2 H RBC 3.93 L Hgb 9.9 L Hct 32.3 L MCV 82.2 MCH 25.2 L MCHC 30.7 L RDW Std Deviation 40.6 RDW Coeff of [place]com 13.6 Plt Count 348 MPV 11.3 Immature Gran % (Auto) 0.600 Neut % (Auto) 75.4 H Lymph % (Auto) 16.1 L [place] % (Auto) 5.5 Eos % (Auto) 1.7 Baso % (Auto) 0.7 Absolute Neuts (auto) 8.4 H Absolute Lymphs (auto) 1.79 Nucleated RBC % 0 Sodium 136 Potassium 3.9 Chloride 100 Carbon Dioxide 28.0 Anion Gap 8 BUN 8 Creatinine 0.92 Estim Creat Clear Calc 45.00 Est GFR (MDRD) Af Amer 77 Est GFR (MDRD) Non-Af 64 BUN/Creatinine Ratio 8.7 L Glucose 424 H Calcium 9.1 Troponin I High Sens 14 B-Natriuretic Peptide 154.1 H Radiography Diagnostic Testing: Clinical Impression(s) from Imaging Studies Chest X-Ray 10/11/21 23:52 IMPRESSION: 1. Heterogeneous right basilar airspace consolidation suggests pneumonia. 2. Bilateral pleural effusions. Electronically Signed: Lala Richard MD at 0:07 EST Reading Location ID and State: [facility] / [place] , Service support , EKG Initial EKG: Attestation: I personally reviewed and interpreted this EKG as follows: Interpretation: Sinus Rhythm and No Acute Injury Pattern Comments: Normal-appearing EKG Discharge Plan Dx/Rx/DC Orders Clinical Impression: Respiratory failure, acute, CHF (congestive heart failure), Pneumonia Disposition Disposition: [facility]
--- NOTE | 2021-10-12 02:41 | HP.PCM.HOS_ITS ---
HPI - General General Date of Admission: 10/12/21 HPI Narrative TIM CEDILLO, is a 71 F who presents to the hospital with worsening shortness of breath whenever she lays flat for the last 3 days. She states that she is very consistent with her fluid restrictions as well as her salt intake and taking her Lasix at home. She denies any fevers or chills but she has noticed a cough that is productive of thick brownish mucus. In the ER she was have a white blood cell count of 11.2 with a normal renal function a blood sugar of 424 and a BNP of 154. She did have an echo on 08/11/2021 with an EF of 60% and a PA systolic pressure 40 mmHg to stage I diastolic dysfunction. She also does wear at baseline around 5 L nasal cannula for her COPD. [facility] Medical History Asthma with COPD Atherosclerotic heart disease of [place] coronary artery without angina pectoris Back pain Bilateral pneumonia CHF (congestive heart failure) Chronic respiratory failure Constipation COPD (chronic obstructive pulmonary disease) Depression Diabetes Former smoker Health care maintenance Heart disease Hepatitis History of constipation HLD (hyperlipidemia) Hypertension Lung disease MARK (obstructive sleep apnea) Pneumonia Psoriasis Smoking greater than 40 pack years SOB (shortness of breath) Type 2 diabetes mellitus Home Medications acetaminophen 1,000 mg PO TID PRN #1 tab 03/16/20 [Rx Last Taken 08/08/21] nitroglycerin 0.4 mg sublingual tablet 0.4 mg SUBLINGUAL Q5-15M #25 tab 08/13/20 [Rx Last Taken Unknown] blood sugar diagnostic #100 each 11/05/20 [Rx Last Taken Unknown] pen needle, diabetic 32 gauge x #50 ea 12/06/20 [History Last Taken Unknown] atorvastatin 80 mg tablet 80 mg PO QHS #90 tab 12/09/20 [Rx Last Taken 08/08/21] Handicap Placard #1 ea 12/12/20 [Rx Last Taken Unknown] flash glucose scanning reader #1 ea 01/31/21 [Rx Last Taken Unknown] flash glucose sensor #2 ea 01/31/21 [Rx Last Taken Unknown] calcipotriene 0.005 % topical cream 1 applic TOPICAL DAILY #120 g 03/07/21 [Rx Last Taken Unknown] clobetasol 0.05 % topical cream 1 applic TOPICAL BID 14 Days #60 g 03/10/21 [Rx Last Taken Unknown] metoprolol tartrate 25 mg tablet 12.5 mg PO BID #90 tab 04/25/21 [Rx Last Taken 08/08/21] fluticasone propionate 50 mcg/actuation nasal spray,suspension 1 spray INTRANASAL DAILY #16 g 04/29/21 [Rx Last Taken 08/08/21] risperidone 1 mg tablet 1 mg PO QHS #90 tab 06/11/21 [Rx Last Taken 08/08/21] pantoprazole 40 mg tablet,delayed release 40 mg PO DAILY #90 tab 07/10/21 [Rx Last Taken 08/08/21] citalopram 40 mg tablet 40 mg PO QHS #90 tab 07/23/21 [Rx Last Taken 08/08/21] Mucus Relief ER 1,200 mg PO BID #14 tab 08/10/21 [Rx Last Taken Unknown] spironolactone 12.5 mg PO DAILY #30 tab 08/12/21 [Rx Last Taken Unknown] albuterol sulfate 90 mcg/actuation aerosol inhaler 2 puff INHALATION Q6H PRN #18 g 08/15/21 [Rx Last Taken Unknown] docusate sodium 100 mg capsule 100 mg PO BID PRN #180 cap 08/19/21 [Rx Last Taken Unknown] insulin lispro 100 unit/mL subcutaneous pen 17 unit SC TID 90 Days #45.9 ml 08/19/21 [Rx Last Taken Unknown] montelukast 10 mg tablet 10 mg PO QHS #90 tab 08/26/21 [Rx Last Taken Unknown] isosorbide mononitrate 60 mg tablet,extended release 24 hr 60 mg PO DAILY #30 tab 09/09/21 [Rx Last Taken Unknown] ipratropium 0.5 mg-albuterol 3 mg (2.5 mg base)/3 mL nebulization soln 3 ml INHALATION Q4H PRN PRN #180 ml 09/10/21 [Rx Last Taken Unknown] clopidogrel 75 mg tablet 75 mg PO DAILY #90 tab 10/06/21 [Rx Last Taken Unknown] alprazolam 0.25 mg tablet 0.25 mg PO DAILY PRN #30 tab 10/10/21 [Rx Last Taken Unknown] furosemide 40 mg PO DAILY 10/12/21 [History Last Taken Unknown] insulin glargine [Basaglar KwikPen U-100 Insulin] 36 unit SUBCUT DAILY 10/12/21 [History Last Taken Unknown] Allergy/AdvReac Type Severity Reaction Status Date / Time amoxicillin [Amoxicillin] Allergy Intermediate Rash Verified 10/11/21 23:19 gabapentin [From Neurontin] Allergy Shortness Verified 10/11/21 23:19 of breath levofloxacin [From Levaquin] Allergy Hives Verified 10/11/21 23:19 pseudoephedrine HCl Allergy Shortness Verified 10/11/21 23:19 [From Sudafed] of breath red dye Allergy Hives Verified 10/11/21 23:19 prednisone AdvReac Severe mean mood Verified 10/11/21 23:19 codeine AdvReac HEADACHE Verified 10/11/21 23:19 Family History Brother Heart disease Mother Colon cancer Heart disease Surgical History History of cholecystectomy History of left heart catheterization (LHC) (~09/23/20) Stented coronary artery (12/28/18) Social History Smoking Status: Former smoker pack-years: 40 how long ago did patient quit smokin year ago alcohol intake: never substance use type: does not use caffeine: Yes Type: carbonated beverages and tea what type of physical activity do you participate in: none ROS Constitutional Constitutional: Denies chills, fatigue, fever(s) or malaise Eyes Eyes: Denies blurry vision ENT HEENT: Denies headache(s) or nasal discharge Cardiovascular Cardiovascular: Reports orthopnea; Denies chest pain, dyspnea on exertion or syncope Respiratory/Chest Respiratory/Chest: Reports productive cough; Denies shortness of breath at rest or shortness of breath with exertion Gastrointestinal Gastrointestinal: Denies constipation, diarrhea, nausea or vomiting Genitourinary Genitourinary: Denies dysuria Neurologic Neurologic: Denies focal weakness, numbness or tremor(s) Psychiatric Psychiatric: Denies anxiety or depression Vital Signs Vital Signs Vital Signs: 10/11/21 23:15 10/11/21 23:20 10/11/21 23:45 Temperature 97.2 F L Temperature Source Temporal Pulse Rate 107 H 97 Respiratory Rate 20 H 27 H Respiratory Effort Short of Breath Respiratory Pattern Tachypnea Blood Pressure 176/93 H Blood Pressure Mean 120 Pulse Ox 96 97 Oxygen Delivery Method Nasal Cannula Nasal Cannula Oxygen Flow Rate (L/min) 5 5 Fraction of Inspired Oxygen (FIO2) 35 10/12/21 01:15 10/12/21 01:23 Temperature 97.4 F L Temperature Source Temporal Pulse Rate 82 82 Respiratory Rate 25 H Respiratory Effort Respiratory Pattern Blood Pressure 156/71 H Blood Pressure Mean 99 Pulse Ox 98 98 Oxygen Delivery Method Bi-pap Bi-pap Oxygen Flow Rate (L/min) Fraction of Inspired Oxygen (FIO2) Weight Weight: 231 lb 7.766 oz Body Mass Index (BMI) 42.3 Physical Exam Const alert, oriented x3 and no apparent distress General Appearance: cooperative HEENT normocephalic and moist oral mucous membranes Eyes PERRL, EOMs intact bilaterally and conjunctivae normal Neck supple and no JVD Resp normal respiratory effort, no retractions, no use of accessory muscles and No clear to auscultation bilaterally Auscultation: wheezes and diminished lung sounds; Negative for crackles, rales or rhonchi Cardio regular rate, regular rhythm, S1 normal heart sound, S2 normal heart sound and no murmurs GI soft to palpation, non-tender and non-distended; Negative for hepatosplenomegaly Extremity no clubbing, cyanosis or edema Skin no rashes or lesions noted Neuro no focal motor deficits and no sensory deficits noted Psych affect normal Appearance: appropriate Results Lab / Micro Data Result Diagrams: 10/11/21 23:25 10/11/21 23:25 Labs: Laboratory Results - last 24 hr 10/11/21 23:25: WBC 11.2 H, RBC 3.93 L, Hgb 9.9 L, Hct 32.3 L, MCV 82.2, MCH 25.2 L, MCHC 30.7 L, RDW Std Deviation 40.6, RDW Coeff of [place]com 13.6, Plt Count 348, MPV 11.3, Immature Gran % (Auto) 0.600, Neut % (Auto) 75.4 H, Lymph % (Auto) 16.1 L, [place] % (Auto) 5.5, Eos % (Auto) 1.7, Baso % (Auto) 0.7, Absolute Neuts (auto) 8.4 H, Absolute Lymphs (auto) 1.79, Nucleated RBC % 0 10/11/21 23:25: Sodium 136, Potassium 3.9, Chloride 100, Carbon Dioxide 28.0, Anion Gap 8, BUN 8, Creatinine 0.92, Estim Creat Clear Calc 45.00, Est GFR (MDRD) Af Amer 77, Est GFR (MDRD) Non-Af 64, BUN/Creatinine Ratio 8.7 L, Glucose 424 H, Calcium 9.1, Troponin I High Sens 14 10/11/21 23:25: B-Natriuretic Peptide 154.1 H Micro: Microbiology 10/11/21 23:40 Mucosa - Nose Influenza Types A,B Direct FA (MARY) - Final 10/11/21 23:40 Nasal Secretion SARS-CoV-2 Antigen (Rapid) - Final Radiology Impression Chest X-Ray 10/11/21 23:52 IMPRESSION: 1. Heterogeneous right basilar airspace consolidation suggests pneumonia. 2. Bilateral pleural effusions. Electronically Signed: Lala Richard MD at 0:07 EST Reading Location ID and State: [facility] / [place] , Service support , Assessment & Plan Assessment/Plan (1) Pneumonia: (2) Acute and chronic respiratory failure with hypoxia: (3) CHF (congestive heart failure): PLAN: 1. Acute on chronic hypoxic respiratory failure secondary to an acute exacerbation of diastolic CHF with pulmonary hypertension and right lower lobe pneumonia ?We will continue with antibiotics and obtain a sputum culture ?Placed on a fluid restriction and diuresis secondary to her symptoms of orthopnea given her pulmonary hypertension and stage I diastolic dysfunction on her recent echo ?She was 87% on her home O2 which is of 5 L when EMS arrived and on arrival she was in distress which is why they placed her on BiPAP ?She did receive a dose of Lasix in the ER 2. HTN/HLD/CAD status post stent ?Blood pressures are stable ?Continue with her home Lipitor, Plavix, metoprolol ?Will verify her other medications and continue as appropriate 3. DM2 ?We will place her on long-acting insulin as well as mealtime insulin and sliding scale insulin ?Accu-Cheks AC at bedtime ?We will make adjustments as necessary 4. COPD ?Not sure she is in exacerbation at this time we will hold off of steroids given her hyperglycemia and monitor with Lasix for possible improvement ?Can continue with her home inhalers 5. Anxiety ?Stable ?You with home med symptoms 6. GERD ?Stable ?Continue with PPI DVT: Lovenox Charges/Coding Visit Charges Inpatient E&M: 83808 Init Hosp L3
--- NOTE | 2021-10-12 04:16 | NURSING ---
Pt c/o severe shortness of breath, tachypneic in the 40s and labored breathing. Pt requesting to go on BIPAP d/t SOB. Placed on BIPAP, previously at 35% FiO2. Pt still c/o being very SOB, RT called to room to look at BIPAP. Pt satting in the 70s, RR in the 40s. Switched to AVAPS by RT. Pt resting in bed now comfortably, O2 in the high 90s.
[2021-10-12 05:00] LABS: Absolute Lymphocyte Count 1.26 X10^3/uL (0.83-4.51); Absolute Neutrophil Count 10.7 X10^3/uL (2.0-7.7); Basophil# 0.08 X10^3/uL; Basophil% 0.6 % (0-1); Eosinophil# 0.14 X10^3/uL; Eosinophils% 1.1 % (0-5); Hemoglobin 9.3 g/dL (12.0-15.0); Lymphocyte # 1.26 X10^3/ul (0.83-4.51); Lymphocyte % 9.8 % (19-41); Mean Corpuscular Hgb 25.1 pg (27.0-32.0); Mean Corpuscular Volume 83.6 fL (81-99); Mean Platelet Vol. 11.4 fl (6.2-12.0); Monocyte# 0.68 X10^3/uL; Monocyte% 5.3 % (0-10); NRBC Flagged by Analyzer 0 % (0-5); Neutrophil # 10.65 X10^3/uL (2.7-7.7); Neutrophil % 82.6 % (47-70); Platelet Count 350 K/mm3 (150-450); RBC Distribution Width CV 13.8 % (11.6-14.6); Red Blood Count 3.71 M/mm3 (4.2-5.4); White Blood Count 12.9 K/mm3 (4.4-11.0)
[2021-10-12 05:35] LABS: Anion Gap 8 (5-15); BUN 12 mg/dL (7-18); BUN/Creat Ratio 11.3 RATIO (10-20); Calcium,Total 8.6 mg/dL (8.5-10.1); Chloride 95 mmol/L (98-107); Creatinine, Serum 1.06 mg/dL (0.55-1.02); EST Glomerular Filtration Rate 54 mL/min (>60); Est Glom Filt Rate - Afr Amer 66 mL/min (>60); Estimated Creatinine Clearance 39.06 ml/min; Glucose 613 mg/dL (74-106); Potassium 4.3 mmol/L (3.5-5.1); Sodium Level 131 mmol/L (136-145)
[2021-10-12 05:56] LABS: Bedside Glucose > 500 mg/dL (74-106)
[2021-10-12] MEDS: Insulin Lispro 100 UNIT/ML INSULN.PEN 10 UNIT SC ×3 (06:15→17:02)
[2021-10-12] MEDS: Insulin Lispro 100 UNIT/ML INSULN.PEN SC ×4 (06:15→21:48)
[2021-10-12] MEDS: Ipratropium/Albuterol Sulfate 3 ML AMPUL.NEB INHALATION ×3 (08:06→19:54)
[2021-10-12] MEDS: 0.9% Saline Lock 10 ML Syringe IV ×2 (10:29→17:02)
[2021-10-12] MEDS: Pantoprazole Sodium 40 MG Tablet PO (10:29)
[2021-10-12] MEDS: Metoprolol Tartrate 25 MG Tablet 12.5 MG PO ×2 (10:29→21:48)
[2021-10-12] MEDS: Furosemide 40 MG/4 ML Vial IV ×2 (10:29→17:02)
[2021-10-12] MEDS: Clopidogrel Bisulfate 75 MG Tablet PO (10:30)
[2021-10-12] MEDS: Enoxaparin 40 MG/0.4 ML Syringe SC (10:30)
[2021-10-12] MEDS: Ceftriaxone 1 GM/50 ML BAG IV (10:37)
[2021-10-12 11:35] LABS: Bedside Glucose 329 mg/dL (74-106)
--- NOTE | 2021-10-12 12:10 | PN.HOSP_ITS ---
Documented by User: Mike GIL 10/12/21 12:47 Subjective Subjective Patient is a 71-year-old female comfortably sitting in a chair, alert and orient x3. Patient reports significant improvement in her shortness of breath from admission. Denies development of any new symptoms overnight. Does not appear in acute distress. Objective Data Objective Data Vital Signs: Vital Signs Temp Pulse Resp BP Pulse Ox 98.3 F 76 18 130/54 H 99 10/12/21 10:25 10/12/21 10:29 10/12/21 10:25 10/12/21 10:29 10/12/21 10:25 Oxygen Flow Rate (L/min) 5 Oxygen Delivery Method Nasal Cannula Weight: 203 lb 4.259 oz Body Mass Index (BMI) 37.2 Intake & Output: Intake and Output for Last 24 Hours 10/10/21 10/11/21 10/12/21 23:59 23:59 23:59 Intake Total 405 / 405 Balance 405 / 405 Lab / Micro Data Result Diagrams: 10/12/21 04:30 10/12/21 04:30 Labs: Laboratory Results - last 24 hr 10/11/21 23:25: WBC 11.2 H, RBC 3.93 L, Hgb 9.9 L, Hct 32.3 L, MCV 82.2, MCH 25.2 L, MCHC 30.7 L, RDW Std Deviation 40.6, RDW Coeff of Malcom 13.6, Plt Count 348, MPV 11.3, Immature Gran % (Auto) 0.600, Neut % (Auto) 75.4 H, Lymph % (Auto) 16.1 L, Wallace % (Auto) 5.5, Eos % (Auto) 1.7, Baso % (Auto) 0.7, Absolute Neuts (auto) 8.4 H, Absolute Lymphs (auto) 1.79, Nucleated RBC % 0 10/11/21 23:25: Sodium 136, Potassium 3.9, Chloride 100, Carbon Dioxide 28.0, Anion Gap 8, BUN 8, Creatinine 0.92, Estim Creat Clear Calc 45.00, Est GFR (MDRD) Af Amer 77, Est GFR (MDRD) Non-Af 64, BUN/Creatinine Ratio 8.7 L, Glucose 424 H, Calcium 9.1, Troponin I High Sens 14 10/11/21 23:25: B-Natriuretic Peptide 154.1 H 10/12/21 04:30: WBC 12.9 H, RBC 3.71 L, Hgb 9.3 L, Hct 31.0 L, MCV 83.6, MCH 25.1 L, MCHC 30.0 L, RDW Std Deviation 42.0, RDW Coeff of Malcom 13.8, Plt Count 350, MPV 11.4, Immature Gran % (Auto) 0.600, Neut % (Auto) 82.6 H, Lymph % (Auto) 9.8 L, Wallace % (Auto) 5.3, Eos % (Auto) 1.1, Baso % (Auto) 0.6, Absolute Neuts (auto) 10.7 H, Absolute Lymphs (auto) 1.26, Nucleated RBC % 0 10/12/21 04:30: Sodium 131 L, Potassium 4.3, Chloride 95 L, Carbon Dioxide 28.0, Anion Gap 8, BUN 12, Creatinine 1.06 H, Estim Creat Clear Calc 39.06, Est GFR (MDRD) Af Amer 66, Est GFR (MDRD) Non-Af 54 L, BUN/Creatinine Ratio 11.3, Glucose 613 H*, Calcium 8.6 10/12/21 05:39: POC Glucose > 500 H* 10/12/21 11:27: POC Glucose 329 H Micro: Microbiology 10/11/21 23:40 Mucosa - Nose Influenza Types A,B Direct FA (MARY) - Final 10/11/21 23:40 Nasal Secretion SARS-CoV-2 Antigen (Rapid) - Final Radiography Diagnostic Testing: Radiology Impression Chest X-Ray 10/11/21 23:52 IMPRESSION: 1. Heterogeneous right basilar airspace consolidation suggests pneumonia. 2. Bilateral pleural effusions. Electronically Signed: Lala Richard MD at 0:07 EST Reading Location ID and State: [facility] / [place] , Service support , Physical Exam Const alert, oriented x3 and no apparent distress HEENT head/scalp atraumatic and moist oral mucous membranes Head and Scalp: normocephalic Eyes PERRL and conjunctivae normal Neck no lymphadenopathy, supple and no JVD Resp normal respiratory effort, no retractions, no use of accessory muscles and clear to auscultation bilaterally Cardio regular rate, regular rhythm, no murmurs and no JVD GI normal to inspection, nondistended, normoactive bowel sounds Extremity normal to inspection and no clubbing, cyanosis or edema Skin no rashes or lesions noted Neuro CN's II-XII intact bilaterally Psych affect normal Assessment & Plan Assessment/Plan (1) Pneumonia: (2) Respiratory failure, acute: (3) CHF (congestive heart failure): PLAN: Day 0 Discharge planning: Current plan is for patient to discharge home when medically ready. 1) acute on chronic hypoxic respiratory failure secondary to right lower lobe pneumonia and possible HFpEF exacerbation. Patient at baseline home oxygen requirements currently satting 99% on 5 L via nasal cannula. Echocardiogram from July 2020 demonstrated normal LV systolic function, an EF of 60%, and RVSP of 37 mmHg and indeterminate diastolic dysfunction. Patient follows with Dr. Lozano and is on Lasix and metoprolol. Chest x-ray on admission suspicious for right lower lobe pneumonia. Viral respiratory panel negative, rapid Covid negative, influenza panel negative. Continue empiric Rocephin and azithromycin and diuresis. 2) HTN Stable, continue metoprolol and IV Lasix. 3) CAD status post stent Continue home Lipitor, Plavix and metoprolol. 4) hyperglycemia secondary to DM2 Blood sugars elevated to 613 on admission. Patient admitted to ER physician that she was not compliant with home meds on the day prior to admission. We will continue long-acting insulin, mealtime insulin and sliding scale insulin with Accu-Cheks. Will obtain A1c and make adjustments as necessary. 5) COPD Do not believe patient is in acute exacerbation as she is not wheezing and seems to be improving on current regimen without steroids. Continue home inhalers. DVT - Lovenox Patient seen by Mike Carmen PA-C, under the supervision of Dr. Evans. Time spent on patient care: 10 minutes. Documented by User: Dr. Omi Evans, DO 10/12/21 13:04 Subjective Subjective Breathing better. Objective Data Lab / Micro Data Result Diagrams: 10/12/21 04:30 10/12/21 04:30 Physical Exam Const alert and no apparent distress Resp normal respiratory effort, no retractions and no use of accessory muscles Cardio regular rate, regular rhythm, S1 normal heart sound and S2 normal heart sound GI normal to inspection, nondistended, normoactive bowel sounds, soft to palpation, non-tender and non-distended Assessment & Plan Assessment/Plan (1) Pneumonia: (2) Respiratory failure, acute: (3) Constipation: PLAN: Patient seen and examined independently. Data and vitals reviewed. I agree with the above note by the physician assistant professor of biology. 1. Acute on chronic hypoxic respiratory failure secondary to pneumonia and CHF exacerbation. Wean oxygen as tolerated 2. Possible pneumococcal pneumonia: Continue with ceftriaxone and azithromycin. 3. Acute heart failure with preserved ejection fraction: EF 60% from 2D echocardiogram on 08/11/2021. 25 minutes of which greater than for percent time was discussed with patient bedside Charges/Coding Visit Charges Inpatient E&M: 81099 Subs Hosp L2
[2021-10-12 17:16] LABS: Bedside Glucose 343 mg/dL (74-106)
[2021-10-12] MEDS: ALPRAZolam 0.25 MG Tablet PO (21:48)
[2021-10-12] MEDS: RisperiDONE 1 MG Tablet PO (21:49)
[2021-10-12] MEDS: Atorvastatin Calcium 80 MG Tablet PO (21:49)
[2021-10-12] MEDS: Montelukast 10 MG Tablet PO (21:49)
[2021-10-12 22:16] LABS: Bedside Glucose 300 mg/dL (74-106)
[2021-10-13] VITALS (11 sets, daily range): BP systolic 139–146; BP diastolic 53–74; PULSE 71–85; RESP 17–18; TEMP 36.2–36.8; O2SAT 94–100
[2021-10-13 07:04] LABS: Absolute Lymphocyte Count 1.34 X10^3/uL (0.83-4.51); Absolute Neutrophil Count 5.9 X10^3/uL (2.0-7.7); Basophil# 0.07 X10^3/uL; Basophil% 0.9 % (0-1); Eosinophil# 0.25 X10^3/uL; Hematocrit 28.8 % (37-47); Hemoglobin 8.7 g/dL (12.0-15.0); Lymphocyte # 1.34 X10^3/ul (0.83-4.51); Lymphocyte % 16.3 % (19-41); Mean Corp Hgb Conc 30.2 g/dL (32-36); Mean Corpuscular Hgb 24.4 pg (27.0-32.0); Mean Corpuscular Volume 80.9 fL (81-99); Mean Platelet Vol. 11.2 fl (6.2-12.0); Monocyte# 0.61 X10^3/uL; Monocyte% 7.4 % (0-10); NRBC Flagged by Analyzer 0 % (0-5); Neutrophil # 5.91 X10^3/uL (2.7-7.7); Neutrophil % 71.9 % (47-70); Platelet Count 285 K/mm3 (150-450); RBC Distribution Width CV 13.8 % (11.6-14.6); RBC Distribution Width SD 40.8 fl (35.1-43.9); Red Blood Count 3.56 M/mm3 (4.2-5.4); White Blood Count 8.2 K/mm3 (4.4-11.0)
[2021-10-13 07:30] LABS: Hemoglobin A1c 11.4 % (3.8-5.6)
[2021-10-13 07:31] LABS: Anion Gap 6 (5-15); BUN 15 mg/dL (7-18); BUN/Creat Ratio 17.8 RATIO (10-20); Calcium,Total 8.8 mg/dL (8.5-10.1); Chloride 98 mmol/L (98-107); Creatinine, Serum 0.84 mg/dL (0.55-1.02); EST Glomerular Filtration Rate 71 mL/min (>60); Est Glom Filt Rate - Afr Amer 86 mL/min (>60); Estimated Creatinine Clearance 49.29 ml/min; Glucose 319 mg/dL (74-106); Potassium 3.9 mmol/L (3.5-5.1); Sodium Level 135 mmol/L (136-145)
[2021-10-13 09:21] LABS: Bedside Glucose 344 mg/dL (74-106)
[2021-10-13] MEDS: Insulin Lispro 100 UNIT/ML INSULN.PEN SC ×2 (09:25→12:02)
[2021-10-13] MEDS: Insulin Lispro 100 UNIT/ML INSULN.PEN 10 UNIT SC ×2 (09:26→12:03)
[2021-10-13] MEDS: Clopidogrel Bisulfate 75 MG Tablet PO (09:29)
[2021-10-13] MEDS: Enoxaparin 40 MG/0.4 ML Syringe SC (09:29)
[2021-10-13] MEDS: Pantoprazole Sodium 40 MG Tablet PO (09:29)
[2021-10-13] MEDS: Metoprolol Tartrate 25 MG Tablet 12.5 MG PO (09:32)
[2021-10-13] MEDS: Ceftriaxone 1 GM/50 ML BAG IV (09:33)
[2021-10-13] MEDS: 0.9% Saline Lock 10 ML Syringe IV (09:33)
[2021-10-13] MEDS: Furosemide 40 MG/4 ML Vial IV (09:36)
--- NOTE | 2021-10-13 11:10 | CASEMGMT ---
RN CM Face to Face with patient for initial transition planning/care coordination assessment. RN CM introduced self and role at [facility]. Patient lying in bed, alert and oriented. Patient willing to participate in assessment and is able to answer all questions appropriately. Care providers, pharmacy, and demographics verified. Patient wishes to discharge home, denies need for home health at this time. Patient states he has no further needs or concerns at this time. CM to follow for discharge planning needs that may arise. PCP: Santy Specialists: Blake, display designer; Yaakov runner worker Preferred Pharmacy: [facility] Insurance: [employer] Prescription Benefit: yes Living Will/HPOA: none LNOK: DIL Living Arrangements: Patient lives alone in a first floor apartment with 4 steps and railing to enter. Patient states she is independent at home. Transportation: self, [facility] van DME/HHC: Patient states she has shower chair, pulse ox, nebulizer, and home oxygen through [employer] with portable concentrator at 5lpm. Patient denies previous HHC or SNF. Disposition Plan: Patient to discharge home with family support and follow-up plans in place. Jyoti STORY, RN, CM
[2021-10-13] MEDS: Senna Tablet 1 TABLET PO (12:01)
[2021-10-13 12:11] LABS: Bedside Glucose 350 mg/dL (74-106)
--- NOTE | 2021-10-13 12:33 | PCM.DC ---
Discharge Instructions Diet Discharge Diet: No restrictions Activity Discharge Activity: Return to Normal Activity Weight Bearing Status: Weight bearing as tolerated Dressing / Incision Call your doctor if you observe: Fever of 101 or Higher, Numbness or Tingling, Shortness of breath, Dizziness, Chest pain, Increased palpitations (irregular heartbeat) and Calf discomfort Follow Up Care Please Follow Up With: Primary care provider When: Within the next two weeks. Test Results: Test results from this visit will be discussed in further detail at your follow-up appointment, if applicable. Discharge Plan Admission Admit Date/Time: 10/12/21 02:17 Attending Provider: Prashant Berumen Primary Care Provider: Billy Madera Discharge Orders/Prescriptions Prescriptions: New furosemide [Lasix] 20 mg tablet 20 mg PO DAILY Qty: 30 RF: 0 levofloxacin 750 mg tablet 750 mg PO DAILY Qty: 4 RF: 0 Continued nitroglycerin 0.4 mg tablet, sublingual 0.4 mg SUBLINGUAL Q5-15M Qty: 25 RF: 3 (DME) pen needle, diabetic 32 gauge x 5/32 needle See Rx Instructions ea .ROUTE .MEDSUPPLY Qty: 50 RF: 0 (DME) Handicap Placard See Rx Instructions .ROUTE .MEDSUPPLY Qty: 1 RF: 0 docusate sodium [Colace] 100 mg capsule 100 mg PO BID PRN (Reason: constipation) Qty: 180 RF: 3 insulin lispro [Humalog KwikPen Insulin] 100 unit/mL insulin pen 17 unit SC TID 90 Days Qty: 45.9 RF: 3 acetaminophen 500 MG tablet 1,000 mg PO TID PRN (Reason: Pain Or Fever) Qty: 1 RF: 0 Basaglar KwikPen U-100 Insulin 100 unit/mL (3 mL) insulin pen 36 unit subcut DAILY RF: 0 isosorbide mononitrate 60 mg tablet extended release 24 hr 60 mg PO DAILY RF: 0 (DME) Accu-Chek Aundrea Plus test strp Strip See Rx Instructions .ROUTE .MEDSUPPLY Qty: 100 RF: 8 atorvastatin 80 mg tablet 80 mg PO QHS Qty: 90 RF: 3 (DME) FreeStyle Emily 2 [place] Misc See Rx Instructions .ROUTE .MEDSUPPLY Qty: 1 RF: 0 (DME) FreeStyle Emily 2 Sensor Kit See Rx Instructions .ROUTE .MEDSUPPLY Qty: 2 RF: 12 metoprolol tartrate 25 mg tablet 12.5 mg PO BID Qty: 90 RF: 3 risperidone 1 mg tablet 1 mg PO QHS Qty: 90 RF: 1 citalopram 40 mg tablet 40 mg PO QHS Qty: 90 RF: 1 albuterol sulfate 90 mcg/actuation HFA aerosol inhaler 2 puff INHALATION Q6H PRN (Reason: shortness of breath or wheezing) Qty: 18 RF: 3 ipratropium-albuterol 0.5 mg-3 mg(2.5 mg base)/3 mL solution for nebulization 3 ml INHALATION Q4H PRN PRN (Reason: SOB &/OR WHEEZING) Qty: 180 RF: 6 clopidogrel 75 mg tablet 75 mg PO DAILY Qty: 90 RF: 3 alprazolam 0.25 mg tablet 0.25 mg PO DAILY PRN (Reason: Anxiety) Qty: 30 RF: 0 Referrals / Follow Up: Billy Madera MD [Primary Care Provider] - Within 2 Weeks Disposition Disposition (needs filled in before D/C Order can be placed): Home, Self Care
[2021-10-13] MEDS: Bisacodyl 5 MG Tablet PO (13:30)
--- NOTE | 2021-10-13 13:30 | CASEMGMT ---
Per Comfort RN, pt was 97% on 5L ambulating which is her normal home order. Pt declines need for any further therapy at discharge. Pt does request [facility] van for transport home and Alan, PCU engineering secretary, is aware. Pt voices no further questions/concerns/needs. Julio Cesar CANSECO CM
[2021-10-13] MEDS: Ipratropium/Albuterol Sulfate 3 ML AMPUL.NEB INHALATION (14:48)
--- NOTE | 2021-10-13 14:54 | DS.PCM_ITS ---
Documented by User: Mike GIL 10/13/21 15:03 Providers Date of Admission: 10/12/21 Date of Discharge: 10/13/21 Primary Care Physician: Dr. Billy Madera MD Reason For Visit: CHF EXACERBATION & PNEUMONIA Diagnosis Discharge Diagnosis (1) Pneumonia: Status: Acute Code(s): J18.9 - Pneumonia, unspecified organism (2) Respiratory failure, acute: Status: Acute Code(s): J96.00 - Acute respiratory failure, unspecified whether with hypoxia or hypercapnia (3) Constipation: Status: Chronic Code(s): K59.00 - Constipation, unspecified Medications at Discharge Home Medications acetaminophen 1,000 mg PO TID PRN #1 tab 03/16/20 nitroglycerin 0.4 mg sublingual tablet 0.4 mg SUBLINGUAL Q5-15M #25 tab 08/13/20 blood sugar diagnostic #100 each 11/05/20 pen needle, diabetic 32 gauge x 5/32 #50 ea 12/06/20 atorvastatin 80 mg tablet 80 mg PO QHS #90 tab 12/09/20 Handicap Placard #1 ea 12/12/20 flash glucose scanning reader #1 ea 01/31/21 flash glucose sensor #2 ea 01/31/21 metoprolol tartrate 25 mg tablet 12.5 mg PO BID #90 tab 04/25/21 risperidone 1 mg tablet 1 mg PO QHS #90 tab 06/11/21 citalopram 40 mg tablet 40 mg PO QHS #90 tab 07/23/21 albuterol sulfate 90 mcg/actuation aerosol inhaler 2 puff INHALATION Q6H PRN #18 g 08/15/21 docusate sodium 100 mg capsule 100 mg PO BID PRN #180 cap 08/19/21 insulin lispro 100 unit/mL subcutaneous pen 17 unit SC TID 90 Days #45.9 ml 08/19/21 ipratropium 0.5 mg-albuterol 3 mg (2.5 mg base)/3 mL nebulization soln 3 ml INHALATION Q4H PRN PRN #180 ml 09/10/21 clopidogrel 75 mg tablet 75 mg PO DAILY #90 tab 10/06/21 alprazolam 0.25 mg tablet 0.25 mg PO DAILY PRN #30 tab 10/10/21 Basaglar KwikPen U-100 Insulin 36 unit SUBCUT DAILY 10/12/21 isosorbide mononitrate 60 mg PO DAILY 10/12/21 azithromycin 500 mg PO DAILY 4 Days #4 tab 10/13/21 cefdinir 300 mg PO BID #14 cap 10/13/21 furosemide [Lasix] 20 mg PO DAILY #30 tab 10/13/21 Hospital Course Summary of Care Provided Minutes Spent on Discharge: 20 Hospital Course: Patient is a 71-year-old female who was admitted to [facility] on 10/12/2021 for evaluation and management of acute hypoxic respiratory failure secondary to combined right lower lobe pneumonia and HFpEF exacerbation. Patient's respiratory status improved to 5 L, which is patient's baseline with diuresis and empiric antibiotics. Repeat echocardiogram was not obtained as patient recently had one in July 2020 which demonstrated normal LV systolic function, an EF of 60%, and RVSP of 37 mmHg and indeterminate diastolic dysfunction. We will continue Lasix, metoprolol and supplemental oxygen at home. Patient's viral respiratory panel, rapid Covid and influenza [place] are all negative. We will continue to treat patient with azithromycin for another 4 days to complete 5-day course. Patient is to follow-up with primary care provider within the next 2 weeks. Patient seen by Mike Carmen PA-C, under the supervision of Dr. Berumen. Physical Exam Narrative Patient is a 71-year-old female comfortably resting in a chair, alert and orient x3. Patient denies development of any new symptoms overnight. Does not appear in acute distress. Const alert, oriented x3 and no apparent distress HEENT normocephalic, head/scalp atraumatic and hearing grossly normal bilaterally Eyes PERRL and conjunctivae normal Neck no lymphadenopathy and no JVD Resp normal respiratory effort, no retractions and no use of accessory muscles Cardio regular rate, regular rhythm and no JVD GI normal to inspection, nondistended, normoactive bowel sounds Extremity normal to inspection Skin no rashes or lesions noted Neuro CN's II-XII intact bilaterally Psych affect normal Weight / BMI Weight Weight: 203 lb 4.259 oz Body Mass Index (BMI) 37.2 ABG / Lab / Microbiology Data Result Diagrams: 10/13/21 06:31 10/13/21 06:31 Laboratory: Laboratory Results - last 24 hr 10/12/21 16:59: POC Glucose 343 H 10/12/21 21:42: POC Glucose 300 H 10/13/21 06:31: Hemoglobin A1c 11.4 H 10/13/21 06:31: WBC 8.2, RBC 3.56 L, Hgb 8.7 L, Hct 28.8 L, MCV 80.9 L, MCH 24.4 L, MCHC 30.2 L, RDW Std Deviation 40.8, RDW Coeff of Malcom 13.8, Plt Count 285, MPV 11.2, Immature Gran % (Auto) 0.500, Neut % (Auto) 71.9 H, Lymph % (Auto) 16.3 L, [place] % (Auto) 7.4, Eos % (Auto) 3.0, Baso % (Auto) 0.9, Absolute Neuts (auto) 5.9, Absolute Lymphs (auto) 1.34, Nucleated RBC % 0 10/13/21 06:31: Sodium 135 L, Potassium 3.9, Chloride 98, Carbon Dioxide 31.0, Anion Gap 6, BUN 15, Creatinine 0.84, Estim Creat Clear Calc 49.29, Est GFR (MDRD) Af Amer 86, Est GFR (MDRD) Non-Af 71, BUN/Creatinine Ratio 17.8, Glucose 319 H, Calcium 8.8 10/13/21 09:15: POC Glucose 344 H 10/13/21 11:58: POC Glucose 350 H Microbiology: Microbiology 10/11/21 23:40 Mucosa - Nose Influenza Types A,B Direct FA (MARY) - Final 10/11/21 23:40 Nasal Secretion SARS-CoV-2 Antigen (Rapid) - Final D/C Instructions Discharge Diet: No restrictions Weight Bearing Status: Weight bearing as tolerated Call your doctor if you observe: Fever of 101 or Higher, Numbness or Tingling, Shortness of breath, Dizziness, Chest pain, Increased palpitations (irregular heartbeat) and Calf discomfort Please Follow Up With: Primary care provider When: Within the next two weeks. Meaningful Use Info Meaningful Use Diagnoses (Choose all that apply): CHF CHF CURT/ARB ordered at discharge?: No Reason CURT/ARB not ordered?: Normal EF Documented LVEF (%): 60 Discharge Plan Admission Admit Date/Time: 10/12/21 02:17 Attending Provider: Prashant Berumen Primary Care Provider: Billy Madera Discharge Orders/Prescriptions Prescriptions: New furosemide [Lasix] 20 mg tablet 20 mg PO DAILY Qty: 30 RF: 0 azithromycin 500 mg tablet 500 mg PO DAILY 4 Days Qty: 4 RF: 0 cefdinir 300 mg capsule 300 mg PO BID Qty: 14 RF: 0 Continued nitroglycerin 0.4 mg tablet, sublingual 0.4 mg SUBLINGUAL Q5-15M Qty: 25 RF: 3 (DME) pen needle, diabetic 32 gauge x 5/32 needle See Rx Instructions ea .ROUTE .MEDSUPPLY Qty: 50 RF: 0 (DME) Handicap Placard See Rx Instructions .ROUTE .MEDSUPPLY Qty: 1 RF: 0 docusate sodium [Colace] 100 mg capsule 100 mg PO BID PRN (Reason: constipation) Qty: 180 RF: 3 insulin lispro [Humalog KwikPen Insulin] 100 unit/mL insulin pen 17 unit SC TID 90 Days Qty: 45.9 RF: 3 acetaminophen 500 MG tablet 1,000 mg PO TID PRN (Reason: Pain Or Fever) Qty: 1 RF: 0 Basaglar KwikPen U-100 Insulin 100 unit/mL (3 mL) insulin pen 36 unit subcut DAILY RF: 0 isosorbide mononitrate 60 mg tablet extended release 24 hr 60 mg PO DAILY RF: 0 (DME) Accu-Chek Aundrea Plus test strp Strip See Rx Instructions .ROUTE .MEDSUPPLY Qty: 100 RF: 8 atorvastatin 80 mg tablet 80 mg PO QHS Qty: 90 RF: 3 (DME) FreeStyle Emily 2 [place] Misc See Rx Instructions .ROUTE .MEDSUPPLY Qty: 1 RF: 0 (DME) FreeStyle Emiyl 2 Sensor Kit See Rx Instructions .ROUTE .MEDSUPPLY Qty: 2 RF: 12 metoprolol tartrate 25 mg tablet 12.5 mg PO BID Qty: 90 RF: 3 risperidone 1 mg tablet 1 mg PO QHS Qty: 90 RF: 1 citalopram 40 mg tablet 40 mg PO QHS Qty: 90 RF: 1 albuterol sulfate 90 mcg/actuation HFA aerosol inhaler 2 puff INHALATION Q6H PRN (Reason: shortness of breath or wheezing) Qty: 18 RF: 3 ipratropium-albuterol 0.5 mg-3 mg(2.5 mg base)/3 mL solution for nebulization 3 ml INHALATION Q4H PRN PRN (Reason: SOB &/OR WHEEZING) Qty: 180 RF: 6 clopidogrel 75 mg tablet 75 mg PO DAILY Qty: 90 RF: 3 alprazolam 0.25 mg tablet 0.25 mg PO DAILY PRN (Reason: Anxiety) Qty: 30 RF: 0 Referrals / Follow Up: Billy Madera MD [Primary Care Provider] - Within 2 Weeks (Left vm with office to call PCU by 3 to schedule f/u if after 3pm I asked office to call PT. ) Disposition Disposition (needs filled in before D/C Order can be placed): Home, Self Care Documented by User: Dr. Prashant Berumen MD 10/13/21 15:16 Providers Date of Admission: 10/12/21 Reason For Visit: CHF EXACERBATION & PNEUMONIA Medications at Discharge Home Medications acetaminophen 1,000 mg PO TID PRN #1 tab 03/16/20 nitroglycerin 0.4 mg sublingual tablet 0.4 mg SUBLINGUAL Q5-15M #25 tab 08/13/20 blood sugar diagnostic #100 each 11/05/20 pen needle, diabetic 32 gauge x 5/32 #50 ea 12/06/20 atorvastatin 80 mg tablet 80 mg PO QHS #90 tab 12/09/20 Handicap Placard #1 ea 12/12/20 flash glucose scanning reader #1 ea 01/31/21 flash glucose sensor #2 ea 01/31/21 metoprolol tartrate 25 mg tablet 12.5 mg PO BID #90 tab 04/25/21 risperidone 1 mg tablet 1 mg PO QHS #90 tab 06/11/21 citalopram 40 mg tablet 40 mg PO QHS #90 tab 07/23/21 albuterol sulfate 90 mcg/actuation aerosol inhaler 2 puff INHALATION Q6H PRN #18 g 01/07/22 docusate sodium 100 mg capsule 100 mg PO BID PRN #180 cap 08/19/21 insulin lispro 100 unit/mL subcutaneous pen 17 unit SC TID 90 Days #45.9 ml 08/19/21 ipratropium 0.5 mg-albuterol 3 mg (2.5 mg base)/3 mL nebulization soln 3 ml INHALATION Q4H PRN PRN #180 ml 09/10/21 clopidogrel 75 mg tablet 75 mg PO DAILY #90 tab 10/06/21 alprazolam 0.25 mg tablet 0.25 mg PO DAILY PRN #30 tab 10/10/21 Basaglar KristinikPen U-100 Insulin 36 unit SUBCUT DAILY 10/12/21 isosorbide mononitrate 60 mg PO DAILY 10/12/21 azithromycin 500 mg PO DAILY 4 Days #4 tab 10/13/21 cefdinir 300 mg PO BID #14 cap 10/13/21 furosemide [Lasix] 20 mg PO DAILY #30 tab 10/13/21 Hospital Course Operations None Summary of Care Provided Minutes Spent on Discharge: 35 Hospital Course: This patient was seen in conjunction with Mike Carmen PA-C. I have independently interviewed and examined the patient and reviewed pertinent historical, laboratory, and other data. Please refer to Mike Carmen PA-C's note for details of this patient's presentation, findings, and recommendations. I have reviewed Mike Carmen PA-C's note and concur with documented findings. In brief, patient is a 71-year-old lady with multiple comorbidities admitted with progressive shortness of breath Physical Examination: GENERAL: cooperative HEENT: Atraumatic; EYES; Anicteric, Normal Conjunctiva NECK; supple, normal thyroid, RESPIRATORY: Diminished to auscultation CARDIOVASCULAR: Regular S1 S2, GI: soft, normoactive bowel sounds, : No Renal angle tenderness; EXTREMITIES: No edema, no clubbing, MUSCULOSKELETAL: no muscle wasting NEURO: Awake; no lateralizing signs. SKIN: No Rash PSYCH; Flat affect Assessment: 1. Acute on chronic hypoxic respite failure 2. Acute on chronic congestive heart failure with preserved ejection fraction 3. Community-acquired pneumonia 4. Essential hypertension 5. Dyslipidemia 6. Coronary artery disease with previous PCI 7. Diabetes mellitus type 2 8. COPD 9. Depression with anxiety 10. GERD 11. Pulmonary hypertension Hospital course; as documented above Total time spent by myself and the advanced practice practitioner evaluating patient, reviewing labs, subsequent management decisions, discussion with patient as well as other providers 40 minutes ( 25 of which was spent by myself) ABG / Lab / Microbiology Data Result Diagrams: 10/13/21 06:31 10/13/21 06:31 Discharge Plan Admission Admit Date/Time: 10/12/21 02:17 Attending Provider: Prashant Berumen Primary Care Provider: Billy Madera Discharge Orders/Prescriptions Prescriptions: New furosemide [Lasix] 20 mg tablet 20 mg PO DAILY Qty: 30 RF: 0 azithromycin 500 mg tablet 500 mg PO DAILY 4 Days Qty: 4 RF: 0 cefdinir 300 mg capsule 300 mg PO BID Qty: 14 RF: 0 Continued nitroglycerin 0.4 mg tablet, sublingual 0.4 mg SUBLINGUAL Q5-15M Qty: 25 RF: 3 (DME) pen needle, diabetic 32 gauge x 5/32 needle See Rx Instructions ea .ROUTE .MEDSUPPLY Qty: 50 RF: 0 (DME) Handicap Placard See Rx Instructions .ROUTE .MEDSUPPLY Qty: 1 RF: 0 docusate sodium [Colace] 100 mg capsule 100 mg PO BID PRN (Reason: constipation) Qty: 180 RF: 3 insulin lispro [Humalog KwikPen Insulin] 100 unit/mL insulin pen 17 unit SC TID 90 Days Qty: 45.9 RF: 3 acetaminophen 500 MG tablet 1,000 mg PO TID PRN (Reason: Pain Or Fever) Qty: 1 RF: 0 Basaglar KwikPen U-100 Insulin 100 unit/mL (3 mL) insulin pen 36 unit subcut DAILY RF: 0 isosorbide mononitrate 60 mg tablet extended release 24 hr 60 mg PO DAILY RF: 0 (DME) Accu-Chek Aundrea Plus test strp Strip See Rx Instructions .ROUTE .MEDSUPPLY Qty: 100 RF: 8 atorvastatin 80 mg tablet 80 mg PO QHS Qty: 90 RF: 3 (DME) FreeStyle Emily 2 [place] Misc See Rx Instructions .ROUTE .MEDSUPPLY Qty: 1 RF: 0 (DME) FreeStyle Emily 2 Sensor Kit See Rx Instructions .ROUTE .MEDSUPPLY Qty: 2 RF: 12 metoprolol tartrate 25 mg tablet 12.5 mg PO BID Qty: 90 RF: 3 risperidone 1 mg tablet 1 mg PO QHS Qty: 90 RF: 1 citalopram 40 mg tablet 40 mg PO QHS Qty: 90 RF: 1 albuterol sulfate 90 mcg/actuation HFA aerosol inhaler 2 puff INHALATION Q6H PRN (Reason: shortness of breath or wheezing) Qty: 18 RF: 3 ipratropium-albuterol 0.5 mg-3 mg(2.5 mg base)/3 mL solution for nebulization 3 ml INHALATION Q4H PRN PRN (Reason: SOB &/OR WHEEZING) Qty: 180 RF: 6 clopidogrel 75 mg tablet 75 mg PO DAILY Qty: 90 RF: 3 alprazolam 0.25 mg tablet 0.25 mg PO DAILY PRN (Reason: Anxiety) Qty: 30 RF: 0 Referrals / Follow Up: Billy Madera MD [Primary Care Provider] - Within 2 Weeks (Left vm with office to call PCU by 3 to schedule f/u if after 3pm I asked office to call PT. ) Disposition Disposition (needs filled in before D/C Order can be placed): Home, Self Care Charges/Coding Visit Charges Inpatient E&M: 87196 Disch Hosp Hospital Course Operations None
== END 2021-10-13 15:10 | disposition home or self-care (01) | DRG 193 ==
LOC: ED 10-12 00:43 → PCU 10-12 03:02
PROVIDERS: Physician Assistant; Admitting Provider Family Medicine; Emergency Provider Emergency Medicine; PCP Internal Medicine; Visit Provider Internal Medicine
DX: J18.9 Pneumonia, unspecified organism (principal); J96.21 Acute and chronic respiratory failure with hypoxia; I11.0 Hypertensive heart disease with heart failure; I50.33 Acute on chronic diastolic (congestive) heart failure; J44.0 Chronic obstructive pulmonary disease with (acute) lower respiratory infection; I27.20 Pulmonary hypertension, unspecified; E11.65 Type 2 diabetes mellitus with hyperglycemia; Z20.822 Contact with and (suspected) exposure to COVID-19; I25.10 Atherosclerotic heart disease of native coronary artery without angina pectoris; E78.5 Hyperlipidemia, unspecified; K21.9 Gastro-esophageal reflux disease without esophagitis; K59.00 Constipation, unspecified; E66.01 Morbid (severe) obesity due to excess calories; Z68.37 Body mass index [BMI] 37.0-37.9, adult; G47.33 Obstructive sleep apnea (adult) (pediatric); F32.A Depression, unspecified; F41.9 Anxiety disorder, unspecified; Z79.4 Long term (current) use of insulin; Z79.02 Long term (current) use of antithrombotics/antiplatelets; Z99.81 Dependence on supplemental oxygen; Z79.899 Other long term (current) drug therapy; Z87.891 Personal history of nicotine dependence; Z95.5 Presence of coronary angioplasty implant and graft
CPT/HCPCS: 36415; 71045; 80048; 82962; 83036; 83880; 84484; 85025; 87426; 87804; 93005; 94002; 94640; 96365; 96366; 96367; 96372; 96375; 96376; 97162; 97166; 97530; 97535; 97802; 99218; 99251; 99285; J7050; A4216; G0378; G0463; J1940

== ENCOUNTER 2021-10-15 17:23 | Emergency (ER) | payer MEDICARE, SELFPAY ==
[2021-03-07 16:44] VITALS: BMI 34.9
[2021-10-15 17:24] VITALS: PULSE 93; RESP 16; TEMP 36.7; O2SAT 98; BMI 37.1
[2021-10-15 17:44] VITALS: O2SAT 97
[2021-10-15 17:45] VITALS: BP 164/67; PULSE 86; RESP 18; O2SAT 97
[2021-10-15 17:49] VITALS: O2SAT 98
--- NOTE | 2021-10-15 18:00 | EKG12_ITS ---
Test Reason : SOB Blood Pressure : / mmHG Vent. Rate : 081 BPM Atrial Rate : 081 BPM P-R Int : 154 ms QRS Dur : 082 ms QT Int : 388 ms P-R-T Axes : 057 017 023 degrees QTc Int : 450 ms Normal sinus rhythm Normal ECG Confirmed by BANG MELVIN, ROSALIA ([id number]), photo editor JAVIER COLBY ([id number]) on 10/17/2021 8:36:57 AM Referred By: Confirmed By:ROSALIA CUENCA MD
[2021-10-15 18:01] LABS: Bedside Glucose 417 mg/dL (74-106)
--- NOTE | 2021-10-15 18:08 | EX.ED.DYSGE1 ---
HPI History of Present Illness Chief Complaint: Shortness of Breath Narrative Narrative: Patient presents complaining that her chronic shortness of breath appears to be slightly worse today as she feels it is exacerbated because her blood sugars been about 450, she recently is in the hospital for CHF and pneumonia her blood sugar went up was about 300, she indicates she spoke with her doctor about the elevated blood sugar and she was told by the office to come to the emergency department so she called paramedics and she was brought in, she is been taking her insulin x2 doses a day she is eating and drinking well, she is taking her antibiotic, she has chronic persistent shortness of breath requiring 4 L of home O2 none of that is really worse, she denies any chest pain or abdominal pain normal bowel bladder habits [facility] Medical History Asthma with COPD Atherosclerotic heart disease of [place] coronary artery without angina pectoris Back pain Bilateral pneumonia CHF (congestive heart failure) Chronic respiratory failure Constipation COPD (chronic obstructive pulmonary disease) Depression Diabetes Former smoker Health care maintenance Heart disease Hepatitis History of constipation HLD (hyperlipidemia) Hypertension Lung disease MARK (obstructive sleep apnea) Pneumonia Psoriasis Smoking greater than 40 pack years SOB (shortness of breath) Type 2 diabetes mellitus Home Medications acetaminophen 1,000 mg PO TID PRN #1 tab 03/16/20 [Rx Last Taken 08/08/21] nitroglycerin 0.4 mg sublingual tablet 0.4 mg SUBLINGUAL Q5-15M #25 tab 08/13/20 [Rx Last Taken Unknown] blood sugar diagnostic #100 each 11/05/20 [Rx Last Taken Unknown] pen needle, diabetic 32 gauge x #50 ea 12/06/20 [History Last Taken Unknown] atorvastatin 80 mg tablet 80 mg PO QHS #90 tab 12/09/20 [Rx Last Taken 08/08/21] Handicap Placard #1 ea 12/12/20 [Rx Last Taken Unknown] flash glucose scanning reader #1 ea 01/31/21 [Rx Last Taken Unknown] flash glucose sensor #2 ea 01/31/21 [Rx Last Taken Unknown] metoprolol tartrate 25 mg tablet 12.5 mg PO BID #90 tab 04/25/21 [Rx Last Taken 08/08/21] risperidone 1 mg tablet 1 mg PO QHS #90 tab 06/11/21 [Rx Last Taken 08/08/21] citalopram 40 mg tablet 40 mg PO QHS #90 tab 07/23/21 [Rx Last Taken 08/08/21] albuterol sulfate 90 mcg/actuation aerosol inhaler 2 puff INHALATION Q6H PRN #18 g 08/15/21 [Rx Last Taken Unknown] docusate sodium 100 mg capsule 100 mg PO BID PRN #180 cap 08/19/21 [Rx Last Taken Unknown] insulin lispro 100 unit/mL subcutaneous pen 17 unit SC TID 90 Days #45.9 ml 08/19/21 [Rx Last Taken Unknown] ipratropium 0.5 mg-albuterol 3 mg (2.5 mg base)/3 mL nebulization soln 3 ml INHALATION Q4H PRN PRN #180 ml 09/10/21 [Rx Last Taken Unknown] clopidogrel 75 mg tablet 75 mg PO DAILY #90 tab 10/06/21 [Rx Last Taken Unknown] alprazolam 0.25 mg tablet 0.25 mg PO DAILY PRN #30 tab 10/10/21 [Rx Last Taken Unknown] Basaglserafin [place] U-100 Insulin 36 unit SUBCUT DAILY 10/12/21 [History Last Taken Unknown] isosorbide mononitrate 60 mg PO DAILY 10/12/21 [History Last Taken Unknown] azithromycin 500 mg PO DAILY 4 Days #4 tab 10/13/21 [Rx Last Taken Unknown] cefdinir 300 mg PO BID #14 cap 10/13/21 [Rx Last Taken Unknown] furosemide [Lasix] 20 mg PO DAILY #30 tab 10/13/21 [Rx Last Taken Unknown] Allergy/AdvReac Type Severity Reaction Status Date / Time amoxicillin [Amoxicillin] Allergy Intermediate Rash Verified 10/15/21 17:44 gabapentin [From Neurontin] Allergy Shortness Verified 10/15/21 17:44 of breath levofloxacin [From Levaquin] Allergy Hives Verified 10/15/21 17:44 pseudoephedrine HCl Allergy Shortness Verified 10/15/21 17:44 [From Sudafed] of breath red dye Allergy Hives Verified 10/15/21 17:44 prednisone AdvReac Severe mean mood Verified 10/15/21 17:44 codeine AdvReac HEADACHE Verified 10/15/21 17:44 Family History Brother Heart disease Mother Colon cancer Heart disease Surgical History History of cholecystectomy History of left heart catheterization (LHC) (~09/23/20) Stented coronary artery (12/28/18) Social History Smoking Status: Former smoker pack-years: 40 how long ago did patient quit smokin year ago alcohol intake: never substance use type: does not use caffeine: Yes Type: carbonated beverages and tea what type of physical activity do you participate in: none ROS ROS ED Respiratory/Chest Respiratory/Chest: Reports cough and dyspnea EXAM Physical Exam Narrative Exam Narrative: The patient is in no distress her vital signs are unremarkable her pulse ox is 98% on the chronic 4 L she is awake and alert head neck chest unremarkable lungs diminished abdomen is obese but soft nontender moving all 4 extremities no significant edema assures me she feels better only came to the hospital because her doctor's office told her to Const Vital Signs: 10/15/21 17:24 10/15/21 17:44 10/15/21 17:45 Temperature 98.1 F Temperature Source Oral Pulse Rate 93 86 Respiratory Rate 16 18 Respiratory Effort Short of Breath Respiratory Pattern Tachypnea Blood Pressure 164/67 H Blood Pressure Mean 99 Pulse Ox 98 97 Oxygen Delivery Method Nasal Cannula Nasal Cannula Nasal Cannula Oxygen Flow Rate (L/min) 4 4 4 10/15/21 17:49 Temperature Temperature Source Pulse Rate Respiratory Rate Respiratory Effort Respiratory Pattern Blood Pressure Blood Pressure Mean Pulse Ox 98 Oxygen Delivery Method Nasal Cannula Oxygen Flow Rate (L/min) 4 MDM MDM MDM Narrative Medical decision making narrative: Patient is concerned her blood sugar is elevated this time will check it she is taking her to daily doses of insulin without difficulty will provide additional IV dose of insulin check screening labs Lab Data Labs: Laboratory Results - last 24 hr 10/15/21 17:48 POC Glucose 417 H Discharge Plan Triage Chief Complaint: Shortness of Breath ED Provider: Maribel Perez Dx/Rx/DC Orders Prescriptions: No Action nitroglycerin 0.4 mg tablet, sublingual 0.4 mg SUBLINGUAL Q5-15M Qty: 25 RF: 3 (DME) pen needle, diabetic 32 gauge x 5/32 needle See Rx Instructions ea .ROUTE .MEDSUPPLY Qty: 50 RF: 0 (DME) Handicap Placard See Rx Instructions .ROUTE .MEDSUPPLY Qty: 1 RF: 0 docusate sodium [Colace] 100 mg capsule 100 mg PO BID PRN (Reason: constipation) Qty: 180 RF: 3 insulin lispro [Humalog KwikPen Insulin] 100 unit/mL insulin pen 17 unit SC TID 90 Days Qty: 45.9 RF: 3 acetaminophen 500 MG tablet 1,000 mg PO TID PRN (Reason: Pain Or Fever) Qty: 1 RF: 0 Basaglar KwikPen U-100 Insulin 100 unit/mL (3 mL) insulin pen 36 unit subcut DAILY RF: 0 isosorbide mononitrate 60 mg tablet extended release 24 hr 60 mg PO DAILY RF: 0 furosemide [Lasix] 20 mg tablet 20 mg PO DAILY Qty: 30 RF: 0 azithromycin 500 mg tablet 500 mg PO DAILY 4 Days Qty: 4 RF: 0 cefdinir 300 mg capsule 300 mg PO BID Qty: 14 RF: 0 (DME) Accu-Chek Aundrea Plus test strp Strip See Rx Instructions .ROUTE .MEDSUPPLY Qty: 100 RF: 8 atorvastatin 80 mg tablet 80 mg PO QHS Qty: 90 RF: 3 (DME) FreeStyle Emily 2 [place] Misc See Rx Instructions .ROUTE .MEDSUPPLY Qty: 1 RF: 0 (DME) FreeStyle Emily 2 Sensor Kit See Rx Instructions .ROUTE .MEDSUPPLY Qty: 2 RF: 12 metoprolol tartrate 25 mg tablet 12.5 mg PO BID Qty: 90 RF: 3 risperidone 1 mg tablet 1 mg PO QHS Qty: 90 RF: 1 citalopram 40 mg tablet 40 mg PO QHS Qty: 90 RF: 1 albuterol sulfate 90 mcg/actuation HFA aerosol inhaler 2 puff INHALATION Q6H PRN (Reason: shortness of breath or wheezing) Qty: 18 RF: 3 ipratropium-albuterol 0.5 mg-3 mg(2.5 mg base)/3 mL solution for nebulization 3 ml INHALATION Q4H PRN PRN (Reason: SOB &/OR WHEEZING) Qty: 180 RF: 6 clopidogrel 75 mg tablet 75 mg PO DAILY Qty: 90 RF: 3 alprazolam 0.25 mg tablet 0.25 mg PO DAILY PRN (Reason: Anxiety) Qty: 30 RF: 0 Primary Care Provider: Billy Madera
--- NOTE | 2021-10-15 18:09 | RAD_ITS ---
STUDY: X-RAY CHEST REASON FOR EXAM: Female, 71 years old. Chest pain TECHNIQUE: Single frontal view of the chest. COMPARISON: 10/11/2021 FINDINGS: Improved aeration of the right base. Similar heterogeneous left costophrenic angle opacity may represent atelectasis and small effusion. Pneumonia should be excluded clinically. Normal size heart. Normal mediastinum and wallace. Normal visualized pulmonary arteries. There is atherosclerotic calcification of the aortic arch with tortuosity. Normal visualized thoracic spine. Normal visualized ribs, clavicles, and shoulders. There is no demonstrated abnormality of the visualized soft tissue structures of the upper abdomen. RAD/Chest 1 View (Portable) IMPRESSION: Improved aeration of the right base. Similar heterogeneous left costophrenic angle opacity may represent atelectasis and small effusion. Pneumonia should be excluded clinically. Electronically Signed: Paulo Larson MD at 18:34 EST ,
[2021-10-15 18:15] LABS: Absolute Lymphocyte Count 1.16 X10^3/uL (0.83-4.51); Absolute Neutrophil Count 8.9 X10^3/uL (2.0-7.7); Basophil# 0.08 X10^3/uL; Basophil% 0.7 % (0-1); Eosinophil# 0.21 X10^3/uL; Eosinophils% 1.9 % (0-5); Hematocrit 27.7 % (37-47); Hemoglobin 8.5 g/dL (12.0-15.0); Lymphocyte # 1.16 X10^3/ul (0.83-4.51); Lymphocyte % 10.5 % (19-41); Mean Corp Hgb Conc 30.7 g/dL (32-36); Mean Corpuscular Hgb 25.1 pg (27.0-32.0); Mean Corpuscular Volume 81.7 fL (81-99); Mean Platelet Vol. 11.1 fl (6.2-12.0); Monocyte# 0.62 X10^3/uL; Monocyte% 5.6 % (0-10); NRBC Flagged by Analyzer 0 % (0-5); Neutrophil # 8.87 X10^3/uL (2.7-7.7); Neutrophil % 80.6 % (47-70); Platelet Count 281 K/mm3 (150-450); RBC Distribution Width CV 13.3 % (11.6-14.6); Red Blood Count 3.39 M/mm3 (4.2-5.4)
[2021-10-15 18:33] LABS: Anion Gap 5 (5-15); BUN 11 mg/dL (7-18); BUN/Creat Ratio 9.6 RATIO (10-20); Calcium,Total 8.9 mg/dL (8.5-10.1); Chloride 96 mmol/L (98-107); Creatinine, Serum 1.15 mg/dL (0.55-1.02); EST Glomerular Filtration Rate 50 mL/min (>60); Est Glom Filt Rate - Afr Amer 60 mL/min (>60); Glucose 390 mg/dL (74-106); Potassium 3.5 mmol/L (3.5-5.1); Sodium Level 132 mmol/L (136-145); Troponin-I HS 10 pg/mL (3.0-54.0)
[2021-10-15 18:46] LABS: BNP,B-Type NATRIURETIC PEPTIDE 78.7 pg/mL (0-100)
[2021-10-15 19:46] LABS: Bedside Glucose 165 mg/dL (74-106)
[2021-10-15 20:12] LABS: Troponin-I HS 13 pg/mL (3.0-54.0)
--- NOTE | 2021-10-17 12:05 | CASEMGMT ---
HARLEEN LUCIANO ED follow-up: Date of ER visit: 10/15/2021 Presenting ER complaint: shortness of breath/COPD RN MUSTAPHA placed call to patient's telephone number listed on demographics with no answer. Voice message left with call back information requesting return call if any questions, needs or concerns. HARLEEN Bazzi CM
== END 2021-10-15 21:27 | disposition home or self-care (01) ==
PROVIDERS: Emergency Provider Emergency Medicine; PCP Internal Medicine; Visit Provider Emergency Medicine
DX: R06.02 Shortness of breath (principal); J44.9 Chronic obstructive pulmonary disease, unspecified; I11.0 Hypertensive heart disease with heart failure; I50.9 Heart failure, unspecified; E11.9 Type 2 diabetes mellitus without complications; E78.5 Hyperlipidemia, unspecified; Z87.891 Personal history of nicotine dependence; I25.10 Atherosclerotic heart disease of native coronary artery without angina pectoris
CPT/HCPCS: 71045; 80048; 82962; 83880; 84484; 85025; 93005; 96374; 99285; A4216

== ENCOUNTER 2021-10-21 22:24 | Observation (INO) | payer MEDICARE, SELFPAY ==
[2021-03-07 16:44] VITALS: BMI 34.9
[2021-10-21 22:26] VITALS: BP 211/85; PULSE 115; RESP 21; RESP 23; TEMP 36.8; O2SAT 100; O2SAT 98; BMI 38.1
--- NOTE | 2021-10-21 22:30 | RAD_ITS ---
STUDY: X-RAY CHEST REASON FOR EXAM: Female, 71 years old. dyspnea TECHNIQUE: Single AP portable view of the chest. COMPARISON: October 15, 2021. August 11, 2021. CTA chest August 10, 2021. FINDINGS: Small left pleural effusion unchanged. Increasing patchy density right lung base. Stable mild cardiomegaly. Normal mediastinum and wallace. Normal visualized pulmonary arteries. Normal visualized aortic arch and descending thoracic aorta. Normal visualized thoracic spine. Normal visualized ribs, clavicles, and shoulders. There is no demonstrated abnormality of the visualized soft tissue structures of the upper abdomen. RAD/Chest 1 View (Portable) IMPRESSION: Developing right basilar pneumonia. Stable small left pleural effusion. Stable mild cardiomegaly. Electronically Signed: Vaughn Recinos MD at 23:31 EDT Reading Location ID and State: [id number] / , Service support ,
--- NOTE | 2021-10-21 22:30 | EKG12_ITS ---
Test Reason : SOB Blood Pressure : / mmHG Vent. Rate : 108 BPM Atrial Rate : 108 BPM P-R Int : 136 ms QRS Dur : 078 ms QT Int : 346 ms P-R-T Axes : 029 026 029 degrees QTc Int : 463 ms Sinus tachycardia Otherwise normal ECG Confirmed by RAMIREZ MELVIN, ARPITA ([id number]), multimedia editor JAVIER COLBY ([id number]) on 10/23/2021 9:38:57 AM Referred By: AYDEN Confirmed By:ARPITA GUZMÁN MD
--- NOTE | 2021-10-21 22:32 | ED.VIS.DYS ---
HPI History of Present Illness Chief Complaint: Shortness of Breath Detail of Chief Complaint: Shortness of breath that started 30 minutes ago Informant: patient Narrative Narrative: Patient presents to the emergency department with complaint of shortness of breath that began 30 minutes ago. Patient states that she got up to use the restroom and then when she went to lay back down could not catch her breath. Patient states she took 2 breathing treatments but did not help her. EMS brings patient in for evaluation. Patient states that she was admitted a week ago with pneumonia. Patient continues to cough. She denies chest pain. She denies hemoptysis. She has had her COVID vaccine and has never had COVID. She denies any sick contacts. Patient also has history of CHF and coronary artery disease. Patient normally on 4 L of home O2. [facility] Medical History Asthma with COPD Atherosclerotic heart disease of [place] coronary artery without angina pectoris Back pain Bilateral pneumonia CHF (congestive heart failure) Chronic respiratory failure Constipation COPD (chronic obstructive pulmonary disease) Depression Diabetes Former smoker Health care maintenance Heart disease Hepatitis History of constipation HLD (hyperlipidemia) Hypertension Lung disease MARK (obstructive sleep apnea) Pneumonia Psoriasis Smoking greater than 40 pack years SOB (shortness of breath) Type 2 diabetes mellitus Home Medications nitroglycerin 0.4 mg sublingual tablet 0.4 mg SUBLINGUAL Q5-15M #25 tab 08/13/20 [Rx Last Taken Unknown] blood sugar diagnostic #100 each 11/05/20 [Rx Last Taken Unknown] pen needle, diabetic 32 gauge x #50 ea 12/06/20 [History Last Taken Unknown] atorvastatin 80 mg tablet 80 mg PO QHS #90 tab 12/09/20 [Rx Last Taken 08/08/21] Handicap Placard #1 ea 12/12/20 [Rx Last Taken Unknown] flash glucose scanning reader #1 ea 01/31/21 [Rx Last Taken Unknown] flash glucose sensor #2 ea 01/31/21 [Rx Last Taken Unknown] metoprolol tartrate 25 mg tablet 12.5 mg PO BID #90 tab 04/25/21 [Rx Last Taken 08/08/21] risperidone 1 mg tablet 1 mg PO QHS #90 tab 06/11/21 [Rx Last Taken 08/08/21] citalopram 40 mg tablet 40 mg PO QHS #90 tab 07/23/21 [Rx Last Taken 08/08/21] albuterol sulfate 90 mcg/actuation aerosol inhaler 2 puff INHALATION Q6H PRN #18 g 08/15/21 [Rx Last Taken Unknown] insulin lispro 100 unit/mL subcutaneous pen 17 unit SC TID 90 Days #45.9 ml 08/19/21 [Rx Last Taken Unknown] ipratropium 0.5 mg-albuterol 3 mg (2.5 mg base)/3 mL nebulization soln 3 ml INHALATION Q4H PRN PRN #180 ml 09/10/21 [Rx Last Taken Unknown] clopidogrel 75 mg tablet 75 mg PO DAILY #90 tab 10/06/21 [Rx Last Taken Unknown] Basaglar CarlenePen U-100 Insulin 36 unit SUBCUT DAILY 10/12/21 [History Last Taken Unknown] isosorbide mononitrate 60 mg PO DAILY 10/12/21 [History Last Taken Unknown] cefdinir 300 mg PO BID #14 cap 10/13/21 [Rx Last Taken Unknown] furosemide [Lasix] 20 mg PO DAILY #30 tab 10/13/21 [Rx Last Taken Unknown] acetaminophen 500 mg PO QHS 10/21/21 [History Last Taken Unknown] alprazolam 0.25 mg PO QHS 10/21/21 [History Last Taken Unknown] Allergy/AdvReac Type Severity Reaction Status Date / Time amoxicillin [Amoxicillin] Allergy Intermediate Rash Verified 10/21/21 22:26 gabapentin [From Neurontin] Allergy Shortness Verified 10/21/21 22:26 of breath levofloxacin [From Levaquin] Allergy Hives Verified 10/21/21 22:26 pseudoephedrine HCl Allergy Shortness Verified 10/21/21 22:26 [From Sudafed] of breath red dye Allergy Hives Verified 10/21/21 22:26 prednisone AdvReac Severe mean mood Verified 10/21/21 22:26 codeine AdvReac HEADACHE Verified 10/21/21 22:26 Family History Brother Heart disease Mother Colon cancer Heart disease Surgical History History of cholecystectomy History of left heart catheterization (LHC) (~09/23/20) Stented coronary artery (12/28/18) Social History Smoking Status: Former smoker pack-years: 40 how long ago did patient quit smokin year ago alcohol intake: never substance use type: does not use caffeine: Yes Type: carbonated beverages and tea what type of physical activity do you participate in: none ROS ROS ED Constitutional Constitutional ED: Reports systems reviewed and no addt'l complaints, except as documented; Denies body ache(s), change in weight or chills Eyes Eyes: Denies acute decrease in peripheral vision, change in vision, double vision or loss of vision ENT ENT ED: Reports none; Denies ear pain, lip swelling, loss taste/smell, neck pain, otalgia or sore throat Cardiovascular Cardiovascular: Reports none; Denies abdominal pain, chest pain with activity, leg edema, lightheadedness, palpitations, rapid heart rate or syncope Respiratory/Chest Respiratory/Chest: Reports none, cough and dyspnea; Denies change in mental status, dry cough, hemoptysis, shortness of breath at rest or shortness of breath with exertion Gastrointestinal Gastrointestinal: Reports none; Denies abdominal pain, change in stool character, diarrhea, hematemesis, hematochezia, melena, rectal bleeding or vomiting Genitourinary Genitourinary ED: Reports none; Denies abdominal discomfort, anuria, dysuria, genital pain or polyuria Musculoskeletal Musculoskeletal: Reports none; Denies arthralgias, back pain, difficulty walking, extremity pain, muscle weakness or myalgias Integumentary Reports none; Denies abscess or rash Neurologic Neurologic: Reports none; Denies abnormal gait, confusion, focal weakness, frequent falls, headache(s), loss of vision, numbness, paresthesias, radicular pain, vertigo or weakness Psychiatric Psychiatric: Reports systems reviewed and no addt'l complaints, except as documented and none; Denies behavioral changes, confusion, difficulty concentrating, hallucinations, suicidal ideation, tactile hallucinations or visual hallucinations Endocrine Endocrinology: Denies none, cold intolerance, excessive sweating, fatigue or heat intolerance Hematologic/Lymphatic Hematologic/Lymphatic: Reports none; Denies anemia, easy bleeding or easy bruising Allergic/Immunologic Allergic/Immunologic ED: Denies as per HPI, none, lip swelling, mouth swelling, throat swelling, tongue swelling or hives EXAM Physical Exam Const Vital Signs: 10/21/21 22:26 10/21/21 22:38 10/21/21 23:27 Temperature 98.2 F Temperature Source Temporal Pulse Rate 115 H 105 H Respiratory Rate 23 H 28 H Respiratory Effort Short of Breath Respiratory Depth Shallow Respiratory Pattern Tachypnea Blood Pressure 211/85 H Blood Pressure Mean 127 Pulse Ox 100 Oxygen Delivery Method Non-Rebreather Nasal Cannula Oxygen Flow Rate (L/min) 15 4 Fraction of Inspired Oxygen (FIO2) 100 10/21/21 23:42 Temperature Temperature Source Pulse Rate 98 Respiratory Rate 22 H Respiratory Effort Respiratory Depth Respiratory Pattern Blood Pressure 193/60 H Blood Pressure Mean 104 Pulse Ox 96 Oxygen Delivery Method Nasal Cannula Oxygen Flow Rate (L/min) 5 Fraction of Inspired Oxygen (FIO2) Positive well nourished and well developed General Appearance ED: well developed and NAD HEENT Reports TM's clear and moist mucous membranes normocephalic and atraumatic; Negative for trauma or tenderness Tympanic Membrane ED: Yes TM's clear Eyes PERRL and EOMs intact bilaterally General Eye ED: Negative for pale conjunctiva or scleral icterus Neck no lymphadenopathy, supple and no JVD General: Negative for tenderness Chest Wall inspection of chest normal and palpation of chest normal Chest: Negative for tenderness Resp Resp Narrative: Patient with tachypnea and mild conversational dyspnea. Patient has diminished breath sounds bilaterally with faint expiratory wheezes. Effort and Inspection: Negative for respiratory distress or pain with movement Auscultation: rhonchi and wheezes; Negative for diminished lung sounds Cardio regular rate, regular rhythm, S1 normal heart sound, S2 normal heart sound and no murmurs Peripheral Pulses: pulses 2+ throughout GI normal to inspection, nondistended, normoactive bowel sounds, soft to palpation, non-tender, non-distended and no masses Back/Spine no CVA tenderness and no thoracic nor lumbar tenderness Extremity normal to inspection General Extremety ED: Negative for edema General Extremity: Negative for edema Neuro oriented x3, CN's II-XII intact bilaterally, no sensory deficits noted and gait normal Sensorium / Orientation: awake, alert, oriented to person, oriented to place and oriented to time Motor Exam: strength 5/5 throughout and strength abnormal Psych mental status grossly normal Skin no rashes or lesions noted and no wounds MDM MDM MDM Narrative Medical decision making narrative: IV line established on arrival. Blood cultures ordered. Patient started on Rocephin and Zithromax IV. Patient was given DuoNeb aerosols as well as Solu-Medrol 125 mg IV. Patient continues to be dyspneic with wheezes noted bilaterally. Case will be discussed with hospitalist evaluate for admission for pneumonia and COPD exacerbation. Lab Data Attestation: I reviewed the patient's lab results. Labs: Laboratory Results - last 24 hr 10/21/21 10/21/21 10/21/21 22:55 22:55 22:55 WBC 11.4 H RBC 3.92 L Hgb 9.4 L Hct 32.3 L MCV 82.4 MCH 24.0 L MCHC 29.1 L RDW Std Deviation 41.3 RDW Coeff of Malcom 14.2 Plt Count 352 MPV 11.3 Immature Gran % (Auto) 1.300 H Neut % (Auto) 75.8 H Lymph % (Auto) 16.1 L [place] % (Auto) 4.2 Eos % (Auto) 1.9 Baso % (Auto) 0.7 Absolute Neuts (auto) 8.6 H Absolute Lymphs (auto) 1.83 Nucleated RBC % 0 D-Dimer Quant (PE/DVT) 0.65 H* Sodium 135 L Potassium 4.0 Chloride 100 Carbon Dioxide 31.0 Anion Gap 4 L BUN 10 Creatinine 0.97 Estim Creat Clear Calc 50.52 Est GFR (MDRD) Af Amer 73 Est GFR (MDRD) Non-Af 61 BUN/Creatinine Ratio 10.4 Glucose 301 H Calcium 9.4 Troponin I High Sens 14 Radiography Chest X-Ray - ED: 1 View Diagnostic Testing: Clinical Impression(s) from Imaging Studies Chest X-Ray 10/21/21 22:30 IMPRESSION: Developing right basilar pneumonia. Stable small left pleural effusion. Stable mild cardiomegaly. Electronically Signed: Vaughn Recinos MD at 23:31 EDT Reading Location ID and State: [id number] / , Service support , 1 view chest x-ray obtained interpreted by myself as right lower lobe pneumonia with left pleural effusion. Radiology in agreement. EKG Initial EKG: Attestation: I personally reviewed and interpreted this EKG as follows: Comments: Sinus rhythm with a ventricular rate of 105 bpm with no acute ST segment changes Prior EKG tracings: available for review Prior: Unchanged Discharge Plan Triage Chief Complaint: Shortness of Breath ED Provider: Libia Sosa Dx/Rx/DC Orders Clinical Impression: COPD (chronic obstructive pulmonary disease), Shortness of breath, Pneumonia, Respiratory failure Prescriptions: No Action nitroglycerin 0.4 mg tablet, sublingual 0.4 mg SUBLINGUAL Q5-15M Qty: 25 RF: 3 (DME) pen needle, diabetic 32 gauge x 5/32 needle See Rx Instructions ea .ROUTE .MEDSUPPLY Qty: 50 RF: 0 (DME) Handicap Placard See Rx Instructions .ROUTE .MEDSUPPLY Qty: 1 RF: 0 insulin lispro [Humalog KwikPen Insulin] 100 unit/mL insulin pen 17 unit SC TID 90 Days Qty: 45.9 RF: 3 Basaglar KwikPen U-100 Insulin 100 unit/mL (3 mL) insulin pen 36 unit subcut DAILY RF: 0 isosorbide mononitrate 60 mg tablet extended release 24 hr 60 mg PO DAILY RF: 0 furosemide [Lasix] 20 mg tablet 20 mg PO DAILY Qty: 30 RF: 0 cefdinir 300 mg capsule 300 mg PO BID Qty: 14 RF: 0 acetaminophen 500 MG tablet 500 mg PO QHS RF: 0 alprazolam 0.25 mg tablet 0.25 mg PO QHS RF: 0 (DME) Accu-Chek Aundrea Plus test strp Strip See Rx Instructions .ROUTE .MEDSUPPLY Qty: 100 RF: 8 atorvastatin 80 mg tablet 80 mg PO QHS Qty: 90 RF: 3 (DME) FreeStyle Emily 2 [place] Misc See Rx Instructions .ROUTE .MEDSUPPLY Qty: 1 RF: 0 (DME) FreeStyle Emily 2 Sensor Kit See Rx Instructions .ROUTE .MEDSUPPLY Qty: 2 RF: 12 metoprolol tartrate 25 mg tablet 12.5 mg PO BID Qty: 90 RF: 3 risperidone 1 mg tablet 1 mg PO QHS Qty: 90 RF: 1 citalopram 40 mg tablet 40 mg PO QHS Qty: 90 RF: 1 albuterol sulfate 90 mcg/actuation HFA aerosol inhaler 2 puff INHALATION Q6H PRN (Reason: shortness of breath or wheezing) Qty: 18 RF: 3 ipratropium-albuterol 0.5 mg-3 mg(2.5 mg base)/3 mL solution for nebulization 3 ml INHALATION Q4H PRN PRN (Reason: SOB &/OR WHEEZING) Qty: 180 RF: 6 clopidogrel 75 mg tablet 75 mg PO DAILY Qty: 90 RF: 3 Primary Care Provider: Billy Madera Referrals: Billy Madera MD [Primary Care Provider] - Disposition Disposition: Acute Care Hospital [facility]
[2021-10-21] MEDS: Ipratropium/Albuterol Sulfate 3 ML AMPUL.NEB INHALATION (22:36)
[2021-10-21 22:38] VITALS: PULSE 105; RESP 28
[2021-10-21] MEDS: Albuterol 2.5 MG/3 ML VIAL.NEB. INHALATION ×3 (22:47)
[2021-10-21] MEDS: MethylPREDNISolone 125 MG/2 ML Vial IV (22:57)
[2021-10-21] MEDS: Ondansetron 4 MG/2 ML Vial IV (23:11)
[2021-10-21 23:27] VITALS: O2SAT 93
[2021-10-21 23:28] LABS: Anion Gap 4 (5-15); BUN 10 mg/dL (7-18); BUN/Creat Ratio 10.4 RATIO (10-20); Calcium,Total 9.4 mg/dL (8.5-10.1); Chloride 100 mmol/L (98-107); Creatinine, Serum 0.97 mg/dL (0.55-1.02); EST Glomerular Filtration Rate 61 mL/min (>60); Est Glom Filt Rate - Afr Amer 73 mL/min (>60); Estimated Creatinine Clearance 50.52 ml/min; Glucose 301 mg/dL (74-106); Sodium Level 135 mmol/L (136-145); Troponin-I HS 14 pg/mL (3.0-54.0)
[2021-10-21 23:30] LABS: Absolute Lymphocyte Count 1.83 X10^3/uL (0.83-4.51); Absolute Neutrophil Count 8.6 X10^3/uL (2.0-7.7); Basophil# 0.08 X10^3/uL; Basophil% 0.7 % (0-1); Eosinophil# 0.22 X10^3/uL; Eosinophils% 1.9 % (0-5); Hematocrit 32.3 % (37-47); Hemoglobin 9.4 g/dL (12.0-15.0); Lymphocyte # 1.83 X10^3/ul (0.83-4.51); Lymphocyte % 16.1 % (19-41); Mean Corp Hgb Conc 29.1 g/dL (32-36); Mean Corpuscular Volume 82.4 fL (81-99); Mean Platelet Vol. 11.3 fl (6.2-12.0); Monocyte# 0.48 X10^3/uL; Monocyte% 4.2 % (0-10); NRBC Flagged by Analyzer 0 % (0-5); Neutrophil # 8.61 X10^3/uL (2.7-7.7); Neutrophil % 75.8 % (47-70); Platelet Count 352 K/mm3 (150-450); RBC Distribution Width CV 14.2 % (11.6-14.6); RBC Distribution Width SD 41.3 fl (35.1-43.9); Red Blood Count 3.92 M/mm3 (4.2-5.4); White Blood Count 11.4 K/mm3 (4.4-11.0)
[2021-10-21 23:31] LABS: D-Dimer Quantitative (DVT/PE) 0.65 FEU/ug/m (0.27-0.49)
[2021-10-21 23:42] VITALS: BP 193/60; PULSE 98; RESP 22; O2SAT 96
[2021-10-22] VITALS (17 sets, daily range): BP systolic 113–175; BP diastolic 51–87; PULSE 78–100; RESP 18–36; TEMP 36.2–37.4; O2SAT 93–100; BMI 37.0
[2021-10-22 00:02] LABS: BNP,B-Type NATRIURETIC PEPTIDE 117.5 pg/mL (0-100)
--- NOTE | 2021-10-22 00:07 | PCM.HP.STD ---
[facility] - General General Date of Admission: 10/21/21 HPI Narrative TIM CEDILLO, is a 71 F with a significant history of CAD status post CABG and stent; COPD and asthma on 4 L baseline home oxygen who presents to the emergency department with persistent shortness of breath that started a few minutes before presentation. Reportedly patient got up to use the bathroom. She then went to lay down in his bed. However she could not lie down because of shortness of breath. Her roommate called the paramedics who brought her to emergency department. Reportedly patient was placed on nonrebreather and brought to the emergency department. At the emergent department patient was transitioned to nasal cannula oxygen. Patient was at the emergency department on 10/15/2021 with shortness of breath. She was discharged on azithromycin and cefdinir 300 mg twice daily. However reportedly she took the cefdinir only once daily. [facility] Medical History Asthma with COPD Atherosclerotic heart disease of [place] coronary artery without angina pectoris Back pain Bilateral pneumonia CHF (congestive heart failure) Chronic respiratory failure Constipation COPD (chronic obstructive pulmonary disease) Depression Diabetes Former smoker Health care maintenance Heart disease Hepatitis History of constipation HLD (hyperlipidemia) Hypertension Lung disease MARK (obstructive sleep apnea) Pneumonia Psoriasis Smoking greater than 40 pack years SOB (shortness of breath) Type 2 diabetes mellitus Home Medications nitroglycerin 0.4 mg sublingual tablet 0.4 mg SUBLINGUAL Q5-15M #25 tab 08/13/20 [Rx Last Taken Unknown] blood sugar diagnostic #100 each 11/05/20 [Rx Last Taken Unknown] pen needle, diabetic 32 gauge x #50 ea 12/06/20 [History Last Taken Unknown] atorvastatin 80 mg tablet 80 mg PO QHS #90 tab 12/09/20 [Rx Last Taken 08/08/21] Handicap Placard #1 ea 12/12/20 [Rx Last Taken Unknown] flash glucose scanning reader #1 ea 01/31/21 [Rx Last Taken Unknown] flash glucose sensor #2 ea 01/31/21 [Rx Last Taken Unknown] metoprolol tartrate 25 mg tablet 12.5 mg PO BID #90 tab 04/25/21 [Rx Last Taken 08/08/21] risperidone 1 mg tablet 1 mg PO QHS #90 tab 06/11/21 [Rx Last Taken 08/08/21] citalopram 40 mg tablet 40 mg PO QHS #90 tab 07/23/21 [Rx Last Taken 08/08/21] albuterol sulfate 90 mcg/actuation aerosol inhaler 2 puff INHALATION Q6H PRN #18 g 08/15/21 [Rx Last Taken Unknown] insulin lispro 100 unit/mL subcutaneous pen 17 unit SC TID 90 Days #45.9 ml 08/19/21 [Rx Last Taken Unknown] ipratropium 0.5 mg-albuterol 3 mg (2.5 mg base)/3 mL nebulization soln 3 ml INHALATION Q4H PRN PRN #180 ml 09/10/21 [Rx Last Taken Unknown] clopidogrel 75 mg tablet 75 mg PO DAILY #90 tab 10/06/21 [Rx Last Taken Unknown] Basaglar CarlenePen U-100 Insulin 36 unit SUBCUT DAILY 10/12/21 [History Last Taken Unknown] isosorbide mononitrate 60 mg PO DAILY 10/12/21 [History Last Taken Unknown] cefdinir 300 mg PO BID #14 cap 10/13/21 [Rx Last Taken Unknown] furosemide [Lasix] 20 mg PO DAILY #30 tab 10/13/21 [Rx Last Taken Unknown] acetaminophen 500 mg PO QHS 10/21/21 [History Last Taken Unknown] alprazolam 0.25 mg PO QHS 10/21/21 [History Last Taken Unknown] Allergy/AdvReac Type Severity Reaction Status Date / Time amoxicillin [Amoxicillin] Allergy Intermediate Rash Verified 10/21/21 22:26 gabapentin [From Neurontin] Allergy Shortness Verified 10/21/21 22:26 of breath levofloxacin [From Levaquin] Allergy Hives Verified 10/21/21 22:26 pseudoephedrine HCl Allergy Shortness Verified 10/21/21 22:26 [From Sudafed] of breath red dye Allergy Hives Verified 10/21/21 22:26 prednisone AdvReac Severe mean mood Verified 10/21/21 22:26 codeine AdvReac HEADACHE Verified 10/21/21 22:26 Family History Brother Heart disease Mother Colon cancer Heart disease Surgical History History of cholecystectomy History of left heart catheterization (LHC) (~09/23/20) Stented coronary artery (12/28/18) Social History Smoking Status: Former smoker pack-years: 40 how long ago did patient quit smokin year ago alcohol intake: never substance use type: does not use caffeine: Yes Type: carbonated beverages and tea what type of physical activity do you participate in: none ROS ROS Narrative Constitutional: Denies fever, chills, anorexia and change in weight Eyes: Denies blurry vision, change in eye color, change in vision, discharge from eye(s), double vision, erythema, eye pain, loss of vision or other HEENT: Denies abnormal hearing, dysphagia, ear pain, epistaxis, headache(s), hearing loss, nasal congestion, nasal discharge, post nasal drip, sinus pressure, sore throat or other Cardiovascular: Reports orthopnea. Denies chest pain; palpitations or paroxysmal nocturnal dyspnea Respiratory/Chest: Reports productive cough. Reports shortness of breath. Gastrointestinal: Denies abdominal pain, coffee ground emesis, constipation, diarrhea, dyspepsia, hematemesis, hematochezia, loose stools, melena, nausea, vomiting or other Genitourinary: Denies burning urination, difficulty urinating, dysuria, hematuria, nocturia, urinary frequency, urinary hesitancy, urinary incontinence, urinary urgency or other Musculoskeletal: Denies arthralgias, back pain, joint pain, joint stiffness, joint swelling, myalgias, neck pain or other Neurologic: Denies abnormal gait, abnormal speech, confusion, disequilibrium, dizziness, focal weakness, headache(s), numbness, paresthesias, seizure-like activity, seizures, syncope, tingling, tremor(s) or other Psychiatric: Denies anxiety, depression, homicidal ideation, suicidal ideation or other Endocrinology: Denies change in body appearance, cold intolerance, excessive sweating, heat intolerance, polydipsia, polyuria or other Hematologic/Lymphatic: Denies anemia, easy bleeding, easy bruising, lymphadenopathy or other Integumentary: Denies rashes Allergic/Immunologic: Denies rhinitis, hives, eczema, asthma or other Vital Signs Vital Signs Vital Signs: 10/21/21 22:26 10/21/21 22:38 10/21/21 23:27 Temperature 98.2 F Temperature Source Temporal Pulse Rate 115 H 105 H Respiratory Rate 23 H 28 H Respiratory Effort Short of Breath Respiratory Depth Shallow Respiratory Pattern Tachypnea Blood Pressure 211/85 H Blood Pressure Mean 127 Pulse Ox 100 Oxygen Delivery Method Non-Rebreather Nasal Cannula Oxygen Flow Rate (L/min) 15 4 Fraction of Inspired Oxygen (FIO2) 100 10/21/21 23:42 Temperature Temperature Source Pulse Rate 98 Respiratory Rate 22 H Respiratory Effort Respiratory Depth Respiratory Pattern Blood Pressure 193/60 H Blood Pressure Mean 104 Pulse Ox 96 Oxygen Delivery Method Nasal Cannula Oxygen Flow Rate (L/min) 5 Fraction of Inspired Oxygen (FIO2) Weight Weight: 107.2 kg Body Mass Index (BMI) 38.1 Physical Exam Narrative Physical exam: General: Well-nourished, well-developed. Head: Normocephalic, atraumatic, no tenderness Eyes: PERRLA, EOMI ENT, no trauma, moist mucous membranes, no rhinorrhea Neck: Nontender, full range of motion, no spinal tenderness, deformities, step-off CVS: Tachycardia. S1-S2 present. No murmur, gallop or rub. Respiratory : Tachypnea; rhonchi. Chest wall nontender. Abdomen: Soft, nontender, nondistended, normal bowel sounds, no masses : Deferred Back: Nontender, no CVA tenderness, no midline spinal tenderness, deformities, step-offs Extremities: Nontender full range of motion, no trauma Skin: Normal color, no trauma, abrasions Neuro: Alert, oriented, cranial nerves II through XII grossly intact. Psychiatry: Normal mood. Normal affect. Not depressed. Not anxious. Results Lab / Micro Data Result Diagrams: 10/21/21 22:55 10/21/21 22:55 Labs: Laboratory Results - last 24 hr 10/21/21 22:55: WBC 11.4 H, RBC 3.92 L, Hgb 9.4 L, Hct 32.3 L, MCV 82.4, MCH 24.0 L, MCHC 29.1 L, RDW Std Deviation 41.3, RDW Coeff of Malcom 14.2, Plt Count 352, MPV 11.3, Immature Gran % (Auto) 1.300 H, Neut % (Auto) 75.8 H, Lymph % (Auto) 16.1 L, [place] % (Auto) 4.2, Eos % (Auto) 1.9, Baso % (Auto) 0.7, Absolute Neuts (auto) 8.6 H, Absolute Lymphs (auto) 1.83, Nucleated RBC % 0 10/21/21 22:55: D-Dimer Quant (PE/DVT) 0.65 H* 10/21/21 22:55: Sodium 135 L, Potassium 4.0, Chloride 100, Carbon Dioxide 31.0, Anion Gap 4 L, BUN 10, Creatinine 0.97, Estim Creat Clear Calc 50.52, Est GFR (MDRD) Af Amer 73, Est GFR (MDRD) Non-Af 61, BUN/Creatinine Ratio 10.4, Glucose 301 H, Calcium 9.4, Troponin I High Sens 14 10/21/21 22:55: B-Natriuretic Peptide 117.5 H Micro: Microbiology 10/21/21 23:00 Nasal Secretion SARS-CoV-2 Antigen (Rapid) - Final Radiology Impression Chest X-Ray 10/21/21 22:30 IMPRESSION: Developing right basilar pneumonia. Stable small left pleural effusion. Stable mild cardiomegaly. Electronically Signed: Vaughn Recinos MD at 23:31 EDT Reading Location ID and State: [id number] / , Service support , Assessment & Plan Assessment/Plan (1) Pneumonia: QUALIFIERS: Laterality: right Lung location: lower lobe of lung Pneumonia type: due to unspecified organism Qualified Code(s): J18.9 - Pneumonia, unspecified organism (2) COPD (chronic obstructive pulmonary disease): QUALIFIERS: COPD type: COPD with acute exacerbation Qualified Code(s): J44.1 - Chronic obstructive pulmonary disease with (acute) exacerbation PLAN: Pneumonia/COPD EXACERBATION Chest x-ray was visualized and independently interpreted and agree with radiologist interpretation. Review of labs showed white count 11.4 with bandemia; neutrophilia and lymphopenia. Gram positive or gram-negative Patient meets SIRS criteria with heart rate of more than 90, respiratory rate of more than 20. qSOFA is 1. Sepsis rule out. Respiratory Gram stain and culture ordered. Blood culture ordered emergency department, follow. Antibiotics : Ceftriaxone and Azithromycin ordered DuoNeb scheduled. Albuterol as needed Legionella antigen screen and Strep antigen ordered Hypertension Blood pressure is not within goal Home blood pressure medication continued. As needed hydralazine ordered. Trend blood pressure and adjust blood pressure medications. DVT prophylaxis: Subcutaneous Lovenox ordered. Charges/Coding Visit Charges Inpatient E&M: 32224 Init Hosp L3
[2021-10-22] MEDS: Ceftriaxone 1 GM/50 ML BAG IV ×2 (00:17→22:23)
[2021-10-22] MEDS: Ipratropium/Albuterol Sulfate 3 ML AMPUL.NEB INHALATION ×7 (01:11→23:00)
[2021-10-22 04:25] LABS: Absolute Lymphocyte Count 0.68 X10^3/uL (0.83-4.51); Absolute Neutrophil Count 14.2 X10^3/uL (2.0-7.7); Basophil# 0.07 X10^3/uL; Basophil% 0.5 % (0-1); Eosinophil# 0.02 X10^3/uL; Eosinophils% 0.1 % (0-5); Hematocrit 29.1 % (37-47); Lymphocyte # 0.68 X10^3/ul (0.83-4.51); Lymphocyte % 4.4 % (19-41); Mean Corp Hgb Conc 30.9 g/dL (32-36); Mean Corpuscular Hgb 24.7 pg (27.0-32.0); Mean Corpuscular Volume 79.7 fL (81-99); Monocyte# 0.24 X10^3/uL; Monocyte% 1.6 % (0-10); NRBC Flagged by Analyzer 0 % (0-5); Neutrophil # 14.15 X10^3/uL (2.7-7.7); Neutrophil % 92.1 % (47-70); Platelet Count 336 K/mm3 (150-450); RBC Distribution Width CV 14.1 % (11.6-14.6); RBC Distribution Width SD 40.5 fl (35.1-43.9); Red Blood Count 3.65 M/mm3 (4.2-5.4); White Blood Count 15.4 K/mm3 (4.4-11.0)
--- NOTE | 2021-10-22 04:39 | EKG12_ITS ---
Test Reason : CP Blood Pressure : / mmHG Vent. Rate : 083 BPM Atrial Rate : 083 BPM P-R Int : 162 ms QRS Dur : 080 ms QT Int : 392 ms P-R-T Axes : 062 036 031 degrees QTc Int : 460 ms Normal sinus rhythm Normal ECG No previous ECGs available Confirmed by RADHA MELVIN, ANABELLE ([id number]), electronic news gathering editor JAVIER COLBY ([id number]) on 10/23/2021 1:42:33 PM Referred By: Confirmed By:MARKUS GARCIA MD
[2021-10-22 04:41] LABS: Anion Gap 8 (5-15); BUN 16 mg/dL (7-18); BUN/Creat Ratio 13.8 RATIO (10-20); Calcium,Total 8.8 mg/dL (8.5-10.1); Chloride 96 mmol/L (98-107); Creatinine, Serum 1.16 mg/dL (0.55-1.02); EST Glomerular Filtration Rate 49 mL/min (>60); Est Glom Filt Rate - Afr Amer 59 mL/min (>60); Estimated Creatinine Clearance 42.25 ml/min; Glucose 576 mg/dL (74-106); Potassium 4.3 mmol/L (3.5-5.1); Sodium Level 131 mmol/L (136-145)
[2021-10-22] MEDS: ALPRAZolam 0.25 MG Tablet PO ×2 (04:44→22:19)
[2021-10-22] MEDS: Insulin Lispro 100 UNIT/ML INSULN.PEN 12 UNIT SC (04:44)
[2021-10-22 06:46] LABS: Bedside Glucose > 500 mg/dL (74-106)
[2021-10-22] MEDS: Insulin Lispro 100 UNIT/ML INSULN.PEN 17 UNIT SC ×2 (08:23→12:12)
[2021-10-22] MEDS: Insulin Lispro 100 UNIT/ML INSULN.PEN SC ×4 (08:24→22:27)
[2021-10-22 08:26] LABS: Bedside Glucose 438 mg/dL (74-106)
[2021-10-22] MEDS: Enoxaparin 40 MG/0.4 ML Syringe SC (10:30)
[2021-10-22] MEDS: Metoprolol Tartrate 25 MG Tablet 12.5 MG PO ×2 (10:30→22:21)
[2021-10-22] MEDS: Clopidogrel Bisulfate 75 MG Tablet PO (10:30)
[2021-10-22] MEDS: Isosorbide Mononitrate 60 MG Tablet PO (10:30)
[2021-10-22] MEDS: Furosemide 20 MG Tablet PO ×2 (10:30→16:54)
--- NOTE | 2021-10-22 11:59 | CASEMGMT ---
Addendum entered by Jyoti Herndon 10/22/21 16:31: Call back from [employer] and pt's home oxygen order is for 5L continuous home oxygen and pt has high flow concentrator as well as POC. [place] HARLEEN LUCIANO Original Note: HARLEEN LUCIANO assessment: Face to Face with patient for initial transition planning/care coordination assessment. HARLEEN LUCIANO introduced self and role at [facility], pt voices understanding and consents to assessment. Pt is sitting up in bed in no distress on 4L nc(pt states this is her home dose). Pt is A/Ox4 and answers all questions appropriately. Care providers, pharmacy, and demographics verified/updated. Presentation: Pt arrives to ED w/ sudden onset SOB, hx COPD Admitting dx: Pna, COPD exac PCP: Santy Specialists: Blake,cardio; Yaakov pulm; Bryce neuro [facility]acy: [facility] Insurance: Cashback [id number] Prescription Benefit: [facility] Living Will/HPOA: Pt does not have LW/HPOA and declines AD info. LNOK: Farideh Vargas, [id number] Living Arrangements: Pt lives alone in 1 story apt with total of 4 steps in and states no concerns at home. Pt is independent with ADL's. Transportation: Pt drives self and states no transportation concerns. DME/HHC: Pt states has the folllowing DME: shower chair, rollator, and 4L continuous home oxygen thru [facility]. Message left with [employer] to verify home order. Pt denies need for any further DME. Pt states has had HHC in the past and has been to [facility]. Pt states no concerns with going home at time of discharge. Pt is retired. Pt states does not smoke cigarettes or drink ETOH. Pt voices no further concerns/needs. CM to follow for any further discharge planning/needs. Advised pt to ask for CM if any further questions/concerns/needs arise, voices understanding. Pt Goal: Home Plan: Home [place] HARLEEN LUCIANO
--- NOTE | 2021-10-22 12:04 | PCM.PN.HOSP ---
Documented by User: July Reyna NP, [employer] SERVICE SUPERVISOR-C 10/22/21 12:51 Subjective Subjective Patient seen and examined. States she had a bowel movement yesterday however feels bloated and constipated which she feels is contributing to her shortness of breath. She denies fever, chills. Objective Data Objective Data Vital Signs: Vital Signs Temp Pulse Resp BP Pulse Ox 99.4 F H 84 28 H 141/56 H 97 10/22/21 03:10 10/22/21 10:30 10/22/21 07:27 10/22/21 10:30 10/22/21 07:27 Oxygen Flow Rate (L/min) 4 Oxygen Delivery Method Nasal Cannula Weight: 229 lb 4.492 oz Body Mass Index (BMI) 37.0 Intake & Output: Intake and Output for Last 24 Hours 10/20/21 10/21/21 10/22/21 23:59 23:59 23:59 Intake Total 305 / 305 Balance 305 / 305 Lab / Micro Data Result Diagrams: 10/22/21 04:14 10/22/21 04:14 Labs: Laboratory Results - last 24 hr 10/21/21 22:55: WBC 11.4 H, RBC 3.92 L, Hgb 9.4 L, Hct 32.3 L, MCV 82.4, MCH 24.0 L, MCHC 29.1 L, RDW Std Deviation 41.3, RDW Coeff of Malcom 14.2, Plt Count 352, MPV 11.3, Immature Gran % (Auto) 1.300 H, Neut % (Auto) 75.8 H, Lymph % (Auto) 16.1 L, [place] % (Auto) 4.2, Eos % (Auto) 1.9, Baso % (Auto) 0.7, Absolute Neuts (auto) 8.6 H, Absolute Lymphs (auto) 1.83, Nucleated RBC % 0 10/21/21 22:55: D-Dimer Quant (PE/DVT) 0.65 H* 10/21/21 22:55: Sodium 135 L, Potassium 4.0, Chloride 100, Carbon Dioxide 31.0, Anion Gap 4 L, BUN 10, Creatinine 0.97, Estim Creat Clear Calc 50.52, Est GFR (MDRD) Af Amer 73, Est GFR (MDRD) Non-Af 61, BUN/Creatinine Ratio 10.4, Glucose 301 H, Calcium 9.4, Troponin I High Sens 14 10/21/21 22:55: B-Natriuretic Peptide 117.5 H 10/22/21 03:52: POC Glucose > 500 H* 10/22/21 04:14: WBC 15.4 H, RBC 3.65 L, Hgb 9.0 L, Hct 29.1 L, MCV 79.7 L, MCH 24.7 L, MCHC 30.9 L D, RDW Std Deviation 40.5, RDW Coeff of [place] 14.1, Plt Count 336, MPV 11.0, Immature Gran % (Auto) 1.300 H, Neut % (Auto) 92.1 H, Lymph % (Auto) 4.4 L, [place] % (Auto) 1.6, Eos % (Auto) 0.1, Baso % (Auto) 0.5, Absolute Neuts (auto) 14.2 H, Absolute Lymphs (auto) 0.68 L, Nucleated RBC % 0 10/22/21 04:14: Sodium 131 L, Potassium 4.3, Chloride 96 L, Carbon Dioxide 27.0, Anion Gap 8, BUN 16, Creatinine 1.16 H, Estim Creat Clear Calc 42.25, Est GFR (MDRD) Af Amer 59 L, Est GFR (MDRD) Non-Af 49 L, BUN/Creatinine Ratio 13.8, Glucose 576 H*, Calcium 8.8 10/22/21 08:17: POC Glucose 438 H Micro: Microbiology 10/21/21 23:00 Nasal Secretion SARS-CoV-2 Antigen (Rapid) - Final Radiography Diagnostic Testing: Radiology Impression Chest X-Ray 10/21/21 22:30 IMPRESSION: Developing right basilar pneumonia. Stable small left pleural effusion. Stable mild cardiomegaly. Electronically Signed: Vaughn Recinos MD at 23:31 EDT Reading Location ID and State: [id number] / , Service support , Physical Exam Const alert, oriented x3 and no apparent distress Orientation / Consciousness: awake, oriented to person, oriented to place and oriented to time HEENT normocephalic and moist oral mucous membranes Eyes PERRL, EOMs intact bilaterally and conjunctivae normal Neck no lymphadenopathy Resp Auscultation: wheezes and diminished lung sounds Cardio regular rate, regular rhythm and no murmurs Peripheral Pulses: pulses 2+ throughout GI normal to inspection, nondistended, normoactive bowel sounds, non-tender and non-distended Extremity normal to inspection Skin no rashes or lesions noted Lesions: no lesions Rashes: no rashes Trauma: no lacerations or abrasions Neuro CN's II-XII intact bilaterally, no focal motor deficits, no sensory deficits noted and deep tendon reflexes 2+ bilaterally Psych mental status grossly normal and affect normal Assessment & Plan Assessment/Plan (1) Acute and chronic respiratory failure with hypoxia: PLAN: 1. Acute on chronic hypoxic respiratory failure secondary to exacerbation of COPD and pneumonia-patient wears 4 L nasal cannula at baseline chest x-ray consistent with right basilar pneumonia. IV Rocephin and IV azithromycin. Albuterol and DuoNeb cultures. Send sputum for culture. Continue supplement oxygen to maintain O2 at or above 90%. Transition from IV Solu-Medrol to prednisone. 2. CAD with history of stent/hypertension/hyperlipidemia-continue current medical management. 3. Type 2 diabetes [id number]-Aszpl with sliding scale insulin. Continue home insulin regimen. Insulin adjusted as glucose significantly elevated, likely secondary to steroids. 4. Anxiety/anxiety-continue citalopram, alprazolam. 5. GERD-continue PPI. 6. Chronic microcytic anemia-at baseline DVT prophylaxis-Lovenox subcu This patient was seen by July Reyna NP-C under the supervision of Dr. Heck Time spent examining patient, reviewing data and subsequent management of care: 14 minutes Documented by User: Dr. Michaelle Heck MD 10/22/21 16:25 Objective Data Lab / Micro Data Result Diagrams: 10/22/21 04:14 10/22/21 04:14 Charges/Coding Addendum Addendum: This patient was seen in conjunction with July Reyna NP. I have independently interviewed and examined the patient and reviewed pertinent historical, laboratory, and other data. I have reviewed her note and concur with her documentation Patient was seen and examined. She complains of feeling short of breath. She is currently on her 4 L home oxygen. No other acute events overnight. Blood sugars have been uncontrolled. Solu-Medrol switched to prednisone. Physical Exam: Gen: Comfortable, appears chronically unwell, on 4 L oxygen, not pale, not done CVS:HS I +II, regular, no murmurs RESP: Diminished at lung bases, generalized wheezes GI: BS present and normal, soft, nontender, no palpable organs EXT: Bilateral leg edema, trace Labs: Blood glucose of 576, WBC count 15.4, hemoglobin 9.0, platelet count of 336. D-dimer is 0.65, sodium 131, potassium 4.2, chloride 96, bicarbonate 27, BUN 16, creatinine 1.16. BNP was 117.5 Chest x-ray showed developing right basilar pneumonia, stable left pleural effusion. ASSESSMENT: 1. Acute on chronic respiratory failure, 2. Acute COPD exacerbation 3. Pneumonia 4. CAD status post stent 5. Hypertension 6. Hyperlipidemia 7. Type II DM 8. Anxiety disorder 9. GERD 10. Anemia Plan: Continue on breathing treatment, prednisone Continue IV ceftriaxone and azithromycin Increase Lantus to 14 units Switch Solu-Medrol to prednisone Time spent coordinating patient's care, discussing with subspecialty and nursin minutes Plan: Visit Charges Inpatient E&M: 37355 Subs Hosp L2
[2021-10-22 12:11] LABS: Bedside Glucose 380 mg/dL (74-106)
[2021-10-22] MEDS: Senna/Docusate Sodium 1 Tablet 2 TABLET PO (14:55)
[2021-10-22 16:41] LABS: Bedside Glucose 343 mg/dL (74-106)
[2021-10-22] MEDS: Insulin Lispro 100 UNIT/ML INSULN.PEN 20 UNIT SC (16:55)
[2021-10-22] MEDS: Acetaminophen 325 MG Tablet 650 MG PO (18:07)
[2021-10-22] MEDS: Loratadine 10 MG Tablet PO (18:07)
[2021-10-22] MEDS: Atorvastatin Calcium 80 MG Tablet PO (22:19)
[2021-10-22] MEDS: Citalopram 40 MG TABLET PO (22:19)
[2021-10-22] MEDS: Acetaminophen 500 MG Tablet PO (22:19)
[2021-10-22] MEDS: Bisacodyl 5 MG Tablet PO (22:20)
[2021-10-22 22:21] LABS: Bedside Glucose 290 mg/dL (74-106)
[2021-10-22] MEDS: RisperiDONE 1 MG Tablet PO (22:23)
[2021-10-23] VITALS (10 sets, daily range): BP systolic 107–159; BP diastolic 54–88; PULSE 73–88; RESP 16–20; TEMP 36.4–36.9; O2SAT 82–99
[2021-10-23] MEDS: Ipratropium/Albuterol Sulfate 3 ML AMPUL.NEB INHALATION ×4 (03:17→15:17)
[2021-10-23 05:58] LABS: Absolute Lymphocyte Count 1.71 X10^3/uL (0.83-4.51); Absolute Neutrophil Count 11.8 X10^3/uL (2.0-7.7); Basophil# 0.06 X10^3/uL; Basophil% 0.4 % (0-1); Eosinophil# 0.05 X10^3/uL; Eosinophils% 0.3 % (0-5); Hematocrit 27.8 % (37-47); Hemoglobin 8.6 g/dL (12.0-15.0); Lymphocyte # 1.71 X10^3/ul (0.83-4.51); Lymphocyte % 11.6 % (19-41); Mean Corp Hgb Conc 30.9 g/dL (32-36); Mean Corpuscular Hgb 24.6 pg (27.0-32.0); Mean Corpuscular Volume 79.7 fL (81-99); Mean Platelet Vol. 11.5 fl (6.2-12.0); Monocyte# 0.92 X10^3/uL; Monocyte% 6.3 % (0-10); NRBC Flagged by Analyzer 0 % (0-5); Neutrophil # 11.78 X10^3/uL (2.7-7.7); Neutrophil % 80.3 % (47-70); Platelet Count 370 K/mm3 (150-450); RBC Distribution Width CV 14.5 % (11.6-14.6); RBC Distribution Width SD 41.2 fl (35.1-43.9); Red Blood Count 3.49 M/mm3 (4.2-5.4); White Blood Count 14.7 K/mm3 (4.4-11.0)
[2021-10-23 06:25] LABS: AST(SGOT) 11 U/L (15-37); Alanine Aminotransfer ALT/SGPT 20 U/L (13-56); Albumin, Serum 3.5 g/dL (3.2-5.0); Alkaline Phosphatase 117 U/L (45-117); Anion Gap 6 (5-15); BUN 25 mg/dL (7-18); BUN/Creat Ratio 25.6 RATIO (10-20); Calcium,Total 9.4 mg/dL (8.5-10.1); Chloride 94 mmol/L (98-107); Creatinine, Serum 0.98 mg/dL (0.55-1.02); EST Glomerular Filtration Rate 60 mL/min (>60); Est Glom Filt Rate - Afr Amer 72 mL/min (>60); Globulin 3.4 g/dL (2.2-4.2); Glucose 366 mg/dL (74-106); Potassium 3.9 mmol/L (3.5-5.1); Protein, Total 6.9 g/dL (6.4-8.2); Sodium Level 131 mmol/L (136-145)
[2021-10-23 07:46] LABS: Bedside Glucose 377 mg/dL (74-106)
[2021-10-23] MEDS: Loratadine 10 MG Tablet PO (08:34)
[2021-10-23] MEDS: predniSONE 20 MG Tablet 40 MG PO (08:35)
[2021-10-23] MEDS: Metoprolol Tartrate 25 MG Tablet 12.5 MG PO (08:35)
[2021-10-23] MEDS: Enoxaparin 40 MG/0.4 ML Syringe SC (08:35)
[2021-10-23] MEDS: Furosemide 20 MG Tablet PO ×2 (08:36→17:58)
[2021-10-23] MEDS: Insulin Lispro 100 UNIT/ML INSULN.PEN 20 UNIT SC ×3 (08:36→17:58)
[2021-10-23] MEDS: Isosorbide Mononitrate 60 MG Tablet PO (08:36)
[2021-10-23] MEDS: Clopidogrel Bisulfate 75 MG Tablet PO (08:37)
[2021-10-23] MEDS: Insulin Lispro 100 UNIT/ML INSULN.PEN SC ×3 (08:37→17:57)
[2021-10-23 11:16] LABS: Bedside Glucose 351 mg/dL (74-106)
--- NOTE | 2021-10-23 11:18 | PN.HOSP_ITS ---
Documented by User: Mike GIL 10/23/21 11:27 Subjective Subjective Patient is a 71-year-old female lying in bed, alert and orient x3. Patient still reports feeling short of breath, although reports this is improved. Does not appear in acute distress. Objective Data Objective Data Vital Signs: Vital Signs Temp Pulse Resp BP Pulse Ox 97.6 F L 81 18 159/71 H 99 10/23/21 08:46 10/23/21 10:46 10/23/21 10:46 10/23/21 08:46 10/23/21 08:46 Oxygen Flow Rate (L/min) 4 Oxygen Delivery Method Nasal Cannula Weight: 229 lb 4.492 oz Body Mass Index (BMI) 37.0 Intake & Output: Intake and Output for Last 24 Hours 10/21/21 10/22/21 10/23/21 23:59 23:59 23:59 Intake Total 1665 / 1665 255 / 255 Output Total 2150 / 2150 Balance -485 / -485 255 / 255 Lab / Micro Data Result Diagrams: 10/23/21 04:47 10/23/21 04:47 Labs: Laboratory Results - last 24 hr 10/22/21 11:36: POC Glucose 380 H 10/22/21 16:30: POC Glucose 343 H 10/22/21 22:12: POC Glucose 290 H 10/23/21 04:47: WBC 14.7 H, RBC 3.49 L, Hgb 8.6 L, Hct 27.8 L, MCV 79.7 L, MCH 24.6 L, MCHC 30.9 L, RDW Std Deviation 41.2, RDW Coeff of Malcom 14.5, Plt Count 370, MPV 11.5, Immature Gran % (Auto) 1.100 H, Neut % (Auto) 80.3 H, Lymph % (Auto) 11.6 L, [place] % (Auto) 6.3, Eos % (Auto) 0.3, Baso % (Auto) 0.4, Absolute Neuts (auto) 11.8 H, Absolute Lymphs (auto) 1.71, Nucleated RBC % 0 10/23/21 04:47: Sodium 131 L, Potassium 3.9, Chloride 94 L, Carbon Dioxide 31.0, Anion Gap 6, BUN 25 H, Creatinine 0.98, Estim Creat Clear Calc 50.00, Est GFR (MDRD) Af Amer 72, Est GFR (MDRD) Non-Af 60, BUN/Creatinine Ratio 25.6 H, Gluc ose 366 H, Calcium 9.4, Total Bilirubin 0.30, AST 11 L, ALT 20, Alkaline Phosphatase 117, Total Protein 6.9, Albumin 3.5, Globulin 3.4, Albumin/Globulin Ratio 1.0 10/23/21 07:39: POC Glucose 377 H 10/23/21 11:07: POC Glucose 351 H Micro: Microbiology 10/22/21 17:05 Urine, Clean Catch Legionella Antigen - Final 10/22/21 17:05 Urine, Clean Catch Streptococcus pneumoniae Antigen (M - Final 10/21/21 23:00 Nasal Secretion SARS-CoV-2 Antigen (Rapid) - Final Physical Exam Const alert, oriented x3 and no apparent distress HEENT head/scalp atraumatic and moist oral mucous membranes Head and Scalp: normocephalic Eyes PERRL and conjunctivae normal Neck no lymphadenopathy, supple and no JVD Resp normal respiratory effort, no retractions and no use of accessory muscles Cardio regular rate, regular rhythm and no JVD GI normal to inspection, nondistended, normoactive bowel sounds Extremity normal to inspection Skin no rashes or lesions noted Neuro CN's II-XII intact bilaterally Psych affect normal Assessment & Plan Assessment/Plan (1) Acute and chronic respiratory failure with hypoxia: PLAN: Day 1 Discharge planning: Current plan is for patient to discharge home when medically ready. 1) acute on chronic hypoxic respiratory failure secondary to pneumonia and COPD exacerbation Patient currently satting 95% on 4 L. Baseline oxygen requirements are around 5 L. Legionella and strep pneumo urinary antigens are negative. Rapid Covid is negative. Blood cultures ordered/pending. WBC still elevated at 14,000. Continue IV Rocephin and azithromycin, continue prednisone. 2) DM2 Continue home insulin regimen, Accu-Cheks with sliding scale insulin ordered. 3) GERD Continue PPI. 4) depression/anxiety Continue citalopram and alprazolam. DVT prophylaxis - Lovenox Patient seen by Mike Carmen PA-C, under the supervision of Dr. Heck. Time spent on patient care: 9 minutes. Documented by User: Dr. Michaelle Heck MD 10/23/21 17:14 Objective Data Lab / Micro Data Result Diagrams: 10/23/21 04:47 10/23/21 04:47
--- NOTE | 2021-10-23 12:09 | CASEMGMT ---
Addendum entered by Jyoti Herndon 10/23/21 14:51: Pt is active with [facility] palliative care and they just saw pt on 10/15/21. [facility] is aware of 4 pt admissions this year. Pt requests D/C info to be faxed to [phone]. Pt declines need for HHC. Pt states 'If they are sending me home, then I will need a squad to take me because I don't have any oxygen here.' Pt upset that she is being discharged today because she states she still feels SOB but pt has been on less than baseline oxygen since admission. Dr. Heck aware. This RN CM asked pt if she has someone to come get her and bring oxygen and pt gets upset stating 'No, that's why I need a squad and that is how I got home last time.' This RN CM asked pt if she was charged for squad home and pt states 'That is none of your business.' This RN CM made suggestion to always bring her POC in the future if she comes into hospital and pt states that this RN CM is a bully. Pt voices no further questions/concerns/needs. Julio Cesar CANSECO CM Addendum entered by Jyoti Herndon 10/23/21 14:13: Pt does not qualify for increased home oxygen at this time. Julio Cesar CANSECO CM Original Note: Pt is currently 99% on 4L at rest and Mystique RN updated that pt needs ambulated on 5L(her home dose), voices understanding. CM to follow. Julio Cesar CANSECO CM
--- NOTE | 2021-10-23 14:33 | DS.PCM_ITS ---
Documented by User: Mike GIL 10/23/21 15:22 Providers Date of Admission: 10/21/21 Date of Discharge: 10/23/21 Primary Care Physician: Dr. Billy Madera MD Reason For Visit: PNEUMONIA, COPD EXACERBATION Diagnosis Discharge Diagnosis (1) Acute and chronic respiratory failure with hypoxia: Status: Chronic Code(s): J96.21 - Acute and chronic respiratory failure with hypoxia Medications at Discharge Home Medications nitroglycerin 0.4 mg sublingual tablet 0.4 mg SUBLINGUAL Q5-15M #25 tab 08/13/20 blood sugar diagnostic #100 each 11/05/20 pen needle, diabetic 32 gauge x /32 #50 ea 12/06/20 atorvastatin 80 mg tablet 80 mg PO QHS #90 tab 12/09/20 Handicap Placard #1 ea 12/12/20 flash glucose scanning reader #1 ea 01/31/21 flash glucose sensor #2 ea 01/31/21 metoprolol tartrate 25 mg tablet 12.5 mg PO BID #90 tab 04/25/21 risperidone 1 mg tablet 1 mg PO QHS #90 tab 06/11/21 citalopram 40 mg tablet 40 mg PO QHS #90 tab 07/23/21 albuterol sulfate 90 mcg/actuation aerosol inhaler 2 puff INHALATION Q6H PRN #18 g 08/15/21 insulin lispro 100 unit/mL subcutaneous pen 17 unit SC TID 90 Days #45.9 ml 08/19/21 ipratropium 0.5 mg-albuterol 3 mg (2.5 mg base)/3 mL nebulization soln 3 ml INHALATION Q4H PRN PRN #180 ml 09/10/21 clopidogrel 75 mg tablet 75 mg PO DAILY #90 tab 10/06/21 Basaglar KwikPen U-100 Insulin 36 unit SUBCUT DAILY 10/12/21 isosorbide mononitrate 60 mg PO DAILY 10/12/21 furosemide [Lasix] 20 mg PO DAILY #30 tab 10/13/21 acetaminophen 500 mg PO QHS 10/21/21 alprazolam 0.25 mg PO QHS 10/21/21 montelukast [Singulair] 10 mg PO DAILY 10/22/21 azithromycin 500 mg PO DAILY 4 Days #4 tab 10/23/21 cefdinir 300 mg PO BID #12 cap 10/23/21 prednisone See Taper PO DAILY #25 tab 10/23/21 Hospital Course Summary of Care Provided Minutes Spent on Discharge: 20 Hospital Course: Patient is a 71-year-old female who was admitted to [facility] on 10/22/2021 for evaluation and management of shortness of breath. Patient's shortness of breath was believed to be the result of ongoing left-sided pneumonia as well as a possible COPD exacerbation. Patient was placed on dual IV antibiotics as well as steroids. Patient shortness of breath improved from admission and patient's oxygen requirements decreased to her baseline at 5 L. Patient was recently admitted earlier this month for left- sided pneumonia, and was discharged on antibiotics. Patient voices to this provider that she was not adherent to her home antibiotic protocol and is unclear of how many days she actually completed. Patient was sent home on a prednisone taper as well as 4 more days of azithromycin and 6 more days of cefdinir. All other home medications were continued and patient is to follow-up with primary care provider within the next 2 weeks. Patient seen by Mike Carmen PA-C, under the supervision of Dr. Heck. Time spent on patient care: 20 minutes. Physical Exam Narrative Patient is a 71-year-old female lying in bed, alert and orient x3. Patient reports that her shortness of breath is improved from admission. Denies d evelopment of any new symptoms overnight. Does not appear in acute distress. Const alert, oriented x3 and no apparent distress HEENT normocephalic, head/scalp atraumatic and hearing grossly normal bilaterally Eyes PERRL and conjunctivae normal Neck no lymphadenopathy, supple and no JVD Resp normal respiratory effort, no retractions and no use of accessory muscles Cardio regular rate, regular rhythm and no JVD GI normal to inspection, nondistended, normoactive bowel sounds Extremity normal to inspection Skin no rashes or lesions noted Neuro CN's II-XII intact bilaterally Psych affect normal Weight / BMI Weight Weight: 229 lb 4.492 oz Body Mass Index (BMI) 37.0 ABG / Lab / Microbiology Data Result Diagrams: 10/23/21 04:47 10/23/21 04:47 Laboratory: Laboratory Results - last 24 hr 10/22/21 16:30: POC Glucose 343 H 10/22/21 22:12: POC Glucose 290 H 10/23/21 04:47: WBC 14.7 H, RBC 3.49 L, Hgb 8.6 L, Hct 27.8 L, MCV 79.7 L, MCH 24.6 L, MCHC 30.9 L, RDW Std Deviation 41.2, RDW Coeff of Malcom 14.5, Plt Count 370, MPV 11.5, Immature Gran % (Auto) 1.100 H, Neut % (Auto) 80.3 H, Lymph % (Auto) 11.6 L, [place]ward % (Auto) 6.3, Eos % (Auto) 0.3, Baso % (Auto) 0.4, Absolute Neuts (auto) 11.8 H, Absolute Lymphs (auto) 1.71, Nucleated RBC % 0 10/23/21 04:47: Sodium 131 L, Potassium 3.9, Chloride 94 L, Carbon Dioxide 31.0, Anion Gap 6, BUN 25 H, Creatinine 0.98, Estim Creat Clear Calc 50.00, Est GFR (MDRD) Af Amer 72, Est GFR (MDRD) Non-Af 60, BUN/Creatinine Ratio 25.6 H, Glucose 366 H, Calcium 9.4, Total Bilirubin 0.30, AST 11 L, ALT 20, Alkaline Phosphatase 117, Total Protein 6.9, Albumin 3.5, Globulin 3.4, Albumin/Globulin Ratio 1.0 10/23/21 07:39: POC Glucose 377 H 10/23/21 11:07: POC Glucose 351 H Microbiology: Microbiology 10/22/21 17:05 Urine, Clean Catch Legionella Antigen - Final 10/22/21 17:05 Urine, Clean Catch Streptococcus pneumoniae Antigen (M - Final 10/21/21 23:00 Nasal Secretion SARS-CoV-2 Antigen (Rapid) - Final Meaningful Use Info Meaningful Use Diagnoses (Choose all that apply): None applicable Discharge Plan Admission Admit Date/Time: 10/21/21 23:51 Primary Reason for Your Visit: Shortness of breath. Attending Provider: Michaelle Heck Primary Care Provider: Billy Madera Discharge Orders/Prescriptions Prescriptions: New prednisone 20 mg tablet See Taper mg PO DAILY Qty: 25 RF: 0 cefdinir 300 mg capsule 300 mg PO BID Qty: 12 RF: 0 azithromycin 500 mg tablet 500 mg PO DAILY 4 Days Qty: 4 RF: 0 Continued nitroglycerin 0.4 mg tablet, sublingual 0.4 mg SUBLINGUAL Q5-15M Qty: 25 RF: 3 (DME) pen needle, diabetic 32 gauge x 5/32 needle See Rx Instructions ea .ROUTE .MEDSUPPLY Qty: 50 RF: 0 (DME) Handicap Placard See Rx Instructions .ROUTE .MEDSUPPLY Qty: 1 RF: 0 insulin lispro [Humalog KwikPen Insulin] 100 unit/mL insulin pen 17 unit SC TID 90 Days Qty: 45.9 RF: 3 Basaglar KwikPen U-100 Insulin 100 unit/mL (3 mL) insulin pen 36 unit subcut DAILY RF: 0 isosorbide mononitrate 60 mg tablet extended release 24 hr 60 mg PO DAILY RF: 0 furosemide [Lasix] 20 mg tablet 20 mg PO DAILY Qty: 30 RF: 0 acetaminophen 500 MG tablet 500 mg PO QHS RF: 0 alprazolam 0.25 mg tablet 0.25 mg PO QHS RF: 0 montelukast [Singulair] 10 mg Tablet 10 mg PO DAILY RF: 0 (DME) Accu-Chek Aundrea Plus test strp Strip See Rx Instructions .ROUTE .MEDSUPPLY Qty: 100 RF: 8 atorvastatin 80 mg tablet 80 mg PO QHS Qty: 90 RF: 3 (DME) FreeStyle Emily 2 [place] Misc See Rx Instructions .ROUTE .MEDSUPPLY Qty: 1 RF: 0 (DME) FreeStyle Emily 2 Sensor Kit See Rx Instructions .ROUTE .MEDSUPPLY Qty: 2 RF: 12 metoprolol tartrate 25 mg tablet 12.5 mg PO BID Qty: 90 RF: 3 risperidone 1 mg tablet 1 mg PO QHS Qty: 90 RF: 1 citalopram 40 mg tablet 40 mg PO QHS Qty: 90 RF: 1 albuterol sulfate 90 mcg/actuation HFA aerosol inhaler 2 puff INHALATION Q6H PRN (Reason: shortness of breath or wheezing) Qty: 18 RF: 3 ipratropium-albuterol 0.5 mg-3 mg(2.5 mg base)/3 mL solution for nebulization 3 ml INHALATION Q4H PRN PRN (Reason: SOB &/OR WHEEZING) Qty: 180 RF: 6 clopidogrel 75 mg tablet 75 mg PO DAILY Qty: 90 RF: 3 Discontinued cefdinir 300 mg capsule 300 mg PO BID RF: 0 Referrals / Follow Up: Billy Madera MD [Primary Care Provider] - 11/03/21 1:45 pm Disposition Disposition (needs filled in before D/C Order can be placed): Home, Self Care Documented by User: Dr. Michaelle Heck MD 10/23/21 17:21 Providers Date of Admission: 10/21/21 Reason For Visit: PNEUMONIA, COPD EXACERBATION Medications at Discharge Home Medications nitroglycerin 0.4 mg sublingual tablet 0.4 mg SUBLINGUAL Q5-15M #25 tab 08/13/20 blood sugar diagnostic #100 each 11/05/20 pen needle, diabetic 32 gauge x 5/32 #50 ea 12/06/20 atorvastatin 80 mg tablet 80 mg PO QHS #90 tab 12/09/20 Handicap Placard #1 ea 12/12/20 flash glucose scanning reader #1 ea 01/31/21 flash glucose sensor #2 ea 01/31/21 metoprolol tartrate 25 mg tablet 12.5 mg PO BID #90 tab 04/25/21 risperidone 1 mg tablet 1 mg PO QHS #90 tab 06/11/21 citalopram 40 mg tablet 40 mg PO QHS #90 tab 07/23/21 albuterol sulfate 90 mcg/actuation aerosol inhaler 2 puff INHALATION Q6H PRN #18 g 08/15/21 insulin lispro 100 unit/mL subcutaneous pen 17 unit SC TID 90 Days #45.9 ml 08/19/21 ipratropium 0.5 mg-albuterol 3 mg (2.5 mg base)/3 mL nebulization soln 3 ml INHALATION Q4H PRN PRN #180 ml 09/10/21 clopidogrel 75 mg tablet 75 mg PO DAILY #90 tab 10/06/21 Dorota Campbell U-100 Insulin 36 unit SUBCUT DAILY 10/12/21 isosorbide mononitrate 60 mg PO DAILY 10/12/21 furosemide [Lasix] 20 mg PO DAILY #30 tab 10/13/21 acetaminophen 500 mg PO QHS 10/21/21 alprazolam 0.25 mg PO QHS 10/21/21 montelukast [Singulair] 10 mg PO DAILY 10/22/21 azithromycin 500 mg PO DAILY 4 Days #4 tab 10/23/21 cefdinir 300 mg PO BID #12 cap 10/23/21 prednisone See Taper PO DAILY #25 tab 10/23/21 ABG / Lab / Microbiology Data Result Diagrams: 10/23/21 04:47 10/23/21 04:47 Discharge Plan Admission Admit Date/Time: 10/21/21 23:51 Primary Reason for Your Visit: Shortness of breath. Attending Provider: Michaelle Heck Primary Care Provider: Billy Madera Discharge Orders/Prescriptions Prescriptions: New prednisone 20 mg tablet See Taper mg PO DAILY Qty: 25 RF: 0 cefdinir 300 mg capsule 300 mg PO BID Qty: 12 RF: 0 azithromycin 500 mg tablet 500 mg PO DAILY 4 Days Qty: 4 RF: 0 Continued nitroglycerin 0.4 mg tablet, sublingual 0.4 mg SUBLINGUAL Q5-15M Qty: 25 RF: 3 (DME) pen needle, diabetic 32 gauge x 5/32 needle See Rx Instructions ea .ROUTE .MEDSUPPLY Qty: 50 RF: 0 (DME) Handicap Placard See Rx Instructions .ROUTE .MEDSUPPLY Qty: 1 RF: 0 insulin lispro [Humalog KwikPen Insulin] 100 unit/mL insulin pen 17 unit SC TID 90 Days Qty: 45.9 RF: 3 Basaglar KwikPen U-100 Insulin 100 unit/mL (3 mL) insulin pen 36 unit subcut DAILY RF: 0 isosorbide mononitrate 60 mg tablet extended release 24 hr 60 mg PO DAILY RF: 0 furosemide [Lasix] 20 mg tablet 20 mg PO DAILY Qty: 30 RF: 0 acetaminophen 500 MG tablet 500 mg PO QHS RF: 0 alprazolam 0.25 mg tablet 0.25 mg PO QHS RF: 0 montelukast [Singulair] 10 mg Tablet 10 mg PO DAILY RF: 0 (DME) Accu-Chek Aundrea Plus test strp Strip See Rx Instructions .ROUTE .MEDSUPPLY Qty: 100 RF: 8 atorvastatin 80 mg tablet 80 mg PO QHS Qty: 90 RF: 3 (DME) FreeStyle Emily 2 [place] Misc See Rx Instructions .ROUTE .MEDSUPPLY Qty: 1 RF: 0 (DME) FreeStyle Emily 2 Sensor Kit See Rx Instructions .ROUTE .MEDSUPPLY Qty: 2 RF: 12 metoprolol tartrate 25 mg tablet 12.5 mg PO BID Qty: 90 RF: 3 risperidone 1 mg tablet 1 mg PO QHS Qty: 90 RF: 1 citalopram 40 mg tablet 40 mg PO QHS Qty: 90 RF: 1 albuterol sulfate 90 mcg/actuation HFA aerosol inhaler 2 puff INHALATION Q6H PRN (Reason: shortness of breath or wheezing) Qty: 18 RF: 3 ipratropium-albuterol 0.5 mg-3 mg(2.5 mg base)/3 mL solution for nebulization 3 ml INHALATION Q4H PRN PRN (Reason: SOB &/OR WHEEZING) Qty: 180 RF: 6 clopidogrel 75 mg tablet 75 mg PO DAILY Qty: 90 RF: 3 Discontinued cefdinir 300 mg capsule 300 mg PO BID RF: 0 Referrals / Follow Up: Billy Madera MD [Primary Care Provider] - 11/03/21 1:45 pm Disposition Disposition (needs filled in before D/C Order can be placed): Home, Self Care Charges/Coding Addendum Addendum: This patient was seen in conjunction with LOUISE Issa. I have independently interviewed and examined the patient and reviewed pertinent historical, laboratory, and other data. I have reviewed her note and concur with her documentation 71-year-old female past medical history of CAD status post CABG, COPD/asthma with chronic hypoxic respiratory failure, on 4 L of oxygen at home who presented with progressive shortness of breath. Patient was recently discharged on 03/15/22. She discharged on azithromycin and cefdinir. Patient however stated she did not take the antibiotics as she should have taken it. Admitting chest x-ray showed a developing right basilar pneumonia. There was a stable small left pleural effusion. Patient was managed as pneumonia as well as acute COPD exacerbation. She was started on IV Solu-Medrol and IV ceftriaxone Bk-micin. Patient continued to improve and was back to her baseline. She was transitioned to prednisone because of hyperglycemia On the day of discharge, patient was seen and examined. She was evaluated for oxygen still needed 4 L of oxygen on ambulation. Physical Exam: Gen: Comfortable, appears chronically unwell, on 4 L oxygen, not pale, not done CVS:HS I +II, regular, no murmurs RESP: Diminished at lung bases, minimal wheezing GI: BS present and normal, soft, nontender, no palpable organs EXT: Bilateral leg edema, trace Time spent coordinating patient's care, discussing with nursing, explaining to patient and answering questions: 35minutes Visit Charges Inpatient E&M: 17357 Disch Hosp
--- NOTE | 2021-10-23 14:33 | PCM.DC ---
Discharge Instructions Diet Discharge Diet: No restrictions Activity Discharge Activity: Return to Normal Activity Weight Bearing Status: Weight bearing as tolerated Dressing / Incision Call your doctor if you observe: Fever of 101 or Higher, Numbness or Tingling, Shortness of breath, Dizziness, Chest pain, Increased palpitations (irregular heartbeat) and Calf discomfort Follow Up Care Please Follow Up With: Primary care provider When: Within the next two weeks. Test Results: Test results from this visit will be discussed in further detail at your follow-up appointment, if applicable. Discharge Plan Admission Admit Date/Time: 10/21/21 23:51 Primary Reason for Your Visit: Shortness of breath. Attending Provider: Michaelle Heck Primary Care Provider: Billy Madera Discharge Orders/Prescriptions Prescriptions: New prednisone 20 mg tablet See Taper mg PO DAILY Qty: 25 RF: 0 cefdinir 300 mg capsule 300 mg PO BID Qty: 12 RF: 0 azithromycin 500 mg tablet 500 mg PO DAILY 4 Days Qty: 4 RF: 0 Continued nitroglycerin 0.4 mg tablet, sublingual 0.4 mg SUBLINGUAL Q5-15M Qty: 25 RF: 3 (DME) pen needle, diabetic 32 gauge x 5/32 needle See Rx Instructions ea .ROUTE .MEDSUPPLY Qty: 50 RF: 0 (DME) Handicap Placard See Rx Instructions .ROUTE .MEDSUPPLY Qty: 1 RF: 0 insulin lispro [Humalog KwikPen Insulin] 100 unit/mL insulin pen 17 unit SC TID 90 Days Qty: 45.9 RF: 3 Basaglar KwikPen U-100 Insulin 100 unit/mL (3 mL) insulin pen 36 unit subcut DAILY RF: 0 isosorbide mononitrate 60 mg tablet extended release 24 hr 60 mg PO DAILY RF: 0 furosemide [Lasix] 20 mg tablet 20 mg PO DAILY Qty: 30 RF: 0 acetaminophen 500 MG tablet 500 mg PO QHS RF: 0 alprazolam 0.25 mg tablet 0.25 mg PO QHS RF: 0 montelukast [Singulair] 10 mg Tablet 10 mg PO DAILY RF: 0 (DME) Accu-Chek Aundrea Plus test strp Strip See Rx Instructions .ROUTE .MEDSUPPLY Qty: 100 RF: 8 atorvastatin 80 mg tablet 80 mg PO QHS Qty: 90 RF: 3 (DME) FreeStyle Emily 2 [place] Misc See Rx Instructions .ROUTE .MEDSUPPLY Qty: 1 RF: 0 (DME) FreeStyle Emily 2 Sensor Kit See Rx Instructions .ROUTE .MEDSUPPLY Qty: 2 RF: 12 metoprolol tartrate 25 mg tablet 12.5 mg PO BID Qty: 90 RF: 3 risperidone 1 mg tablet 1 mg PO QHS Qty: 90 RF: 1 citalopram 40 mg tablet 40 mg PO QHS Qty: 90 RF: 1 albuterol sulfate 90 mcg/actuation HFA aerosol inhaler 2 puff INHALATION Q6H PRN (Reason: shortness of breath or wheezing) Qty: 18 RF: 3 ipratropium-albuterol 0.5 mg-3 mg(2.5 mg base)/3 mL solution for nebulization 3 ml INHALATION Q4H PRN PRN (Reason: SOB &/OR WHEEZING) Qty: 180 RF: 6 clopidogrel 75 mg tablet 75 mg PO DAILY Qty: 90 RF: 3 Discontinued cefdinir 300 mg capsule 300 mg PO BID RF: 0 Referrals / Follow Up: Billy Madera MD [Primary Care Provider] - Within 2 Weeks Disposition Disposition (needs filled in before D/C Order can be placed): Home, Self Care
--- NOTE | 2021-10-23 16:00 | RAD_ITS ---
INDICATION: SOB EXAMINATION/TECHNIQUE: X-RAY - XR Chest 1 View COMPARISON: 10/21/2021 FINDINGS/ RAD/Chest 1 View (Portable) IMPRESSION: Support devices: None. Minimal right basilar opacities, slightly improved from prior, which could relate to atelectasis and/or resolving pneumonia. There is some bibasilar atelectasis. Stable small left pleural effusion. No sizable pneumothorax. Heart size is stable. Bones and soft tissues are unchanged. Electronically Signed: Jose Rafael De La Torre, at 16:26 EDT ,
[2021-10-23 17:06] LABS: Bedside Glucose 313 mg/dL (74-106)
== END 2021-10-23 18:54 | disposition home or self-care (01) | DRG 190 ==
LOC: ED 23:53 → PCU 10-22 04:04
PROVIDERS: Admitting Provider Hospitalist; Emergency Provider Emergency Medicine; PCP Internal Medicine; Visit Provider Internal Medicine
DX: J44.0 Chronic obstructive pulmonary disease with (acute) lower respiratory infection (principal); J44.1 Chronic obstructive pulmonary disease with (acute) exacerbation; I50.32 Chronic diastolic (congestive) heart failure; I11.0 Hypertensive heart disease with heart failure; E11.65 Type 2 diabetes mellitus with hyperglycemia; J96.10 Chronic respiratory failure, unspecified whether with hypoxia or hypercapnia; Z79.4 Long term (current) use of insulin; J18.9 Pneumonia, unspecified organism; D50.9 Iron deficiency anemia, unspecified; E78.5 Hyperlipidemia, unspecified; I25.10 Atherosclerotic heart disease of native coronary artery without angina pectoris; K21.9 Gastro-esophageal reflux disease without esophagitis; F41.9 Anxiety disorder, unspecified; F32.A Depression, unspecified; Z91.14 Patient's other noncompliance with medication regimen; Z95.5 Presence of coronary angioplasty implant and graft; Z99.81 Dependence on supplemental oxygen; Z79.02 Long term (current) use of antithrombotics/antiplatelets; Z79.899 Other long term (current) drug therapy; Z87.891 Personal history of nicotine dependence; Z95.1 Presence of aortocoronary bypass graft
CPT/HCPCS: 36415; 71045; 80048; 80053; 82962; 83880; 84484; 85025; 85379; 87040; 87449; 87811; 93005; 94640; 94667; 94668; 96365; 96366; 96367; 96372; 96375; 96376; 97162; 97802; 99218; 99251; 99285; J7050; A4216; G0378; G0463; J2405

== ENCOUNTER 2021-10-31 08:28 | Outpatient (CLI) | payer MEDICARE, SELFPAY ==
[2021-03-07 16:44] VITALS: BMI 34.9
[2021-10-31 09:48] LABS: Anion Gap 7 (5-15); BUN 10 mg/dL (7-18); BUN/Creat Ratio 10.4 RATIO (10-20); Calcium,Total 9.3 mg/dL (8.5-10.1); Chloride 97 mmol/L (98-107); Creatinine, Serum 0.96 mg/dL (0.55-1.02); EST Glomerular Filtration Rate 61 mL/min (>60); Est Glom Filt Rate - Afr Amer 74 mL/min (>60); Glucose 335 mg/dL (74-106); Potassium 4.1 mmol/L (3.5-5.1); Sodium Level 135 mmol/L (136-145)
== END 2021-10-31 23:59 | disposition home or self-care (01) ==
LOC: LAB 08:29
PROVIDERS: PCP Internal Medicine; Referring Provider Internal Medicine Critical Care Medicine; Visit Provider Internal Medicine Critical Care Medicine
DX: J96.21 Acute and chronic respiratory failure with hypoxia (principal); I50.9 Heart failure, unspecified
CPT/HCPCS: 36415; 80048

== ENCOUNTER 2021-11-11 14:31 | Outpatient (CLI) | payer MEDICARE, SELFPAY ==
[2021-11-03 12:08] VITALS: BMI 34.9
[2021-11-11 16:44] LABS: Absolute Lymphocyte Count 1.05 X10^3/uL (0.83-4.51); Absolute Neutrophil Count 7.6 X10^3/uL (2.0-7.7); Basophil# 0.06 X10^3/uL; Basophil% 0.6 % (0-1); Eosinophil# 0.21 X10^3/uL; Eosinophils% 2.2 % (0-5); Hematocrit 31.3 % (37-47); Lymphocyte # 1.05 X10^3/ul (0.83-4.51); Lymphocyte % 11.1 % (19-41); Mean Corp Hgb Conc 28.8 g/dL (32-36); Mean Corpuscular Hgb 23.9 pg (27.0-32.0); Mean Platelet Vol. 11.5 fl (6.2-12.0); Monocyte# 0.46 X10^3/uL; Monocyte% 4.9 % (0-10); NRBC Flagged by Analyzer 0 % (0-5); Neutrophil % 80.8 % (47-70); Platelet Count 326 K/mm3 (150-450); RBC Distribution Width CV 14.3 % (11.6-14.6); RBC Distribution Width SD 43.4 fl (35.1-43.9); Red Blood Count 3.77 M/mm3 (4.2-5.4); White Blood Count 9.4 K/mm3 (4.4-11.0)
[2021-11-11 16:57] LABS: Vitamin B12 394 pg/mL (211-911)
[2021-11-11 17:04] LABS: AST(SGOT) 19 U/L (15-37); Alanine Aminotransfer ALT/SGPT 27 U/L (13-56); Albumin, Serum 3.5 g/dL (3.2-5.0); Alkaline Phosphatase 129 U/L (45-117); Bilirubin, Direct 0.12 mg/dL (0.00-0.30); Cholesterol 141 mg/dL (200); Globulin 3.3 g/dL (2.2-4.2); High Density Lipoprotein 75 mg/dL; Protein, Total 6.8 g/dL (6.4-8.2); Triglycerides 120 mg/dL; Very Low Density Lipoprotein 24 mg/dL (5-40)
[2021-11-11 17:14] LABS: Anion Gap 9 (5-15); BUN 9 mg/dL (7-18); BUN/Creat Ratio 9.6 RATIO (10-20); Calcium,Total 8.9 mg/dL (8.5-10.1); Chloride 96 mmol/L (98-107); Creatinine, Serum 0.94 mg/dL (0.55-1.02); EST Glomerular Filtration Rate 62 mL/min (>60); Est Glom Filt Rate - Afr Amer 76 mL/min (>60); Ferritin 14 ng/mL (8-252); Glucose 411 mg/dL (74-106); Iron 28 ug/dL (50-170); Iron Binding Capacity,Total 402 ug/dL (250-450); Potassium 4.4 mmol/L (3.5-5.1); Sodium Level 132 mmol/L (136-145)
[2021-11-11 17:34] LABS: Hemoglobin A1c 11.2 % (3.8-5.6)
== END 2021-11-11 23:59 | disposition home or self-care (01) ==
LOC: BIMLAB 14:32
PROVIDERS: Nurse Practitioner Gerontology; PCP Internal Medicine; Referring Provider Internal Medicine; Visit Provider Internal Medicine
DX: J96.21 Acute and chronic respiratory failure with hypoxia (principal); I50.9 Heart failure, unspecified; E11.9 Type 2 diabetes mellitus without complications; D64.9 Anemia, unspecified; E78.5 Hyperlipidemia, unspecified
CPT/HCPCS: 36415; 80048; 80061; 80076; 82607; 82728; 82746; 83036; 83540; 83550; 85025

== ENCOUNTER → 2021-12-05 | Outpatient (CLI) | payer MEDICARE, SELFPAY ==
[2021-11-03 12:08] VITALS: BMI 34.9
--- NOTE | 2021-12-05 14:02 | US_ITS ---
STUDY: THYROID ULTRASOUND REASON FOR EXAM: Female, 71 years old. Thyroid Nodules TECHNIQUE: Ultrasound evaluation of the thyroid was performed with real-time and static godinez-scale imaging. COMPARISON: 05.30.21 FINDINGS: RIGHT LOBE: The right lobe of the thyroid gland measures 5.2 x 1.9 cm. There is a homogeneous echotexture. There are nodules. These measure 9 x 10 mm, 17 x 15 mm, and 10 x 7 mm. LEFT LOBE: The left lobe of the thyroid gland measures 4.6 x 2 cm. There is a homogeneous echotexture. There are nodules. These measure 4 x 3 mm 7 x 5 mm. The lesion is solid with regular margins and james nodular doppler flow. ISTHMUS: The isthmus measures 4 mm. US/Thyroid IMPRESSION: There are RIGHT 17mm nodules. It is stable in size. This nodule is solid or almost completely solid, hyperechoic or isoechoic, [id number], smoothly marginated and contains no echogenic foci. TI-RADS points: 3. TI-RADS category: TR3. This nodule is mildly suspicious. Recommend follow-up thyroid ultrasounds at 1, 3 and 5 years. There are left nodules. This nodule is cystic or nearly completely cystic. TI-RADS points: 0. TI-RADS category: TR1. This nodule is benign and no FNA or follow-up is necessary. Electronically Signed: Andrew Wheeler MD at 19:27 EDT ,
== END | disposition home or self-care (01) ==
LOC: US 14:01
PROVIDERS: PCP Internal Medicine; Referring Provider Internal Medicine; Visit Provider Internal Medicine
DX: E04.1 Nontoxic single thyroid nodule (principal)
CPT/HCPCS: 76536

== ENCOUNTER → 2021-12-11 | Outpatient (CLI) | payer MEDICARE, SELFPAY ==
[2021-11-03 12:08] VITALS: BMI 34.9
[2021-12-11] MEDS: 0.9% NaCl Peripheral Flush Adult/Peds IV ×2 (14:13→15:07)
[2021-12-11] MEDS: 0.9% NaCl IVPB Med Flush (250 mL) 15 ML IV (14:13)
[2021-12-11 14:16] VITALS: BP 140/67; PULSE 82; RESP 20; TEMP 36.6; O2SAT 100; BMI 36.6
[2021-12-11 15:30] VITALS: BP 145/56; PULSE 76; RESP 16; TEMP 36.8; O2SAT 100
== END | disposition home or self-care (01) ==
LOC: MEDOUTP 13:55
PROVIDERS: PCP Internal Medicine; Referring Provider Internal Medicine; Visit Provider Internal Medicine
DX: D64.9 Anemia, unspecified (principal)
CPT/HCPCS: 96365; J1756; J7050; A4216

== ENCOUNTER → 2021-12-15 | Outpatient (CLI) | payer MEDICARE, SELFPAY ==
[2021-11-03 12:08] VITALS: BMI 34.9
[2021-12-15 13:33] VITALS: BP 125/91; PULSE 90; RESP 20; TEMP 35.8; O2SAT 100
[2021-12-15] MEDS: 0.9% NaCl Peripheral Flush Adult/Peds IV (13:39)
[2021-12-15] MEDS: 0.9% NaCl IVPB Med Flush (250 mL) 15 ML IV (13:48)
[2021-12-15 14:41] VITALS: BP 130/56; PULSE 80
== END | disposition home or self-care (01) ==
LOC: MEDOUTP 13:27
PROVIDERS: PCP Internal Medicine; Referring Provider Internal Medicine; Visit Provider Internal Medicine
DX: D64.9 Anemia, unspecified (principal)
CPT/HCPCS: 96365; J1756; J7050; A4216

== ENCOUNTER 2021-12-19 19:53 | Emergency (ER) | payer MEDICARE, SELFPAY ==
[2021-11-03 12:08] VITALS: BMI 34.9
[2021-12-19 19:57] VITALS: BP 156/85; PULSE 85; RESP 25; TEMP 37; O2SAT 100; BMI 42.6
[2021-12-19 20:00] VITALS: BP 144/60; PULSE 85; RESP 25; TEMP 37; O2SAT 100
--- NOTE | 2021-12-19 20:24 | RAD_ITS ---
STUDY: X-RAY CHEST REASON FOR EXAM: Female, 71 years old. pt stated dyspnea and tachycardia TECHNIQUE: XR Chest 1 View COMPARISON: 10/23/2021 FINDINGS: There is no demonstrated pleural abnormality. Normal size heart. Normal mediastinum and wallace. Normal visualized pulmonary arteries. There is atherosclerotic calcification of the aortic arch with tortuosity. There are diffuse degenerative changes of the visualized thoracic spine. There is degenerative osteoarthritis of the bilateral shoulders. There is no demonstrated abnormality of the visualized soft tissue structures of the upper abdomen. RAD/Chest 1 View (Portable) IMPRESSION: There are no acute findings. Electronically Signed: Andrew Wheeler MD at 21:34 EDT ,
--- NOTE | 2021-12-19 20:24 | EKG12_ITS ---
Test Reason : PALP Blood Pressure : / mmHG Vent. Rate : 084 BPM Atrial Rate : 084 BPM P-R Int : 148 ms QRS Dur : 082 ms QT Int : 386 ms P-R-T Axes : 051 004 054 degrees QTc Int : 456 ms Normal sinus rhythm Normal ECG Confirmed by BANG MELVIN, ROSALIA ([id number]), videotape editor JAVIER COLBY ([id number]) on 12/22/2021 1:35:05 PM Referred By: PL Confirmed By:ROSALIA CUENCA MD
[2021-12-19] MEDS: Ipratropium/Albuterol Sulfate 3 ML AMPUL.NEB INHALATION (20:32)
[2021-12-19 20:34] VITALS: PULSE 81; RESP 21
[2021-12-19 20:38] LABS: Absolute Lymphocyte Count 1.17 X10^3/uL (0.83-4.51); Absolute Neutrophil Count 7.2 X10^3/uL (2.0-7.7); Basophil# 0.05 X10^3/uL; Basophil% 0.5 % (0-1); Eosinophil# 0.14 X10^3/uL; Eosinophils% 1.5 % (0-5); Hematocrit 31.6 % (37-47); Hemoglobin 9.4 g/dL (12.0-15.0); Lymphocyte # 1.17 X10^3/ul (0.83-4.51); Lymphocyte % 12.7 % (19-41); Mean Corp Hgb Conc 29.7 g/dL (32-36); Mean Corpuscular Hgb 25.1 pg (27.0-32.0); Mean Corpuscular Volume 84.5 fL (81-99); Mean Platelet Vol. 11.5 fl (6.2-12.0); Monocyte# 0.54 X10^3/uL; Monocyte% 5.9 % (0-10); NRBC Flagged by Analyzer 0 % (0-5); Neutrophil # 7.23 X10^3/uL (2.7-7.7); Neutrophil % 78.5 % (47-70); Platelet Count 284 K/mm3 (150-450); RBC Distribution Width CV 16.2 % (11.6-14.6); RBC Distribution Width SD 46.5 fl (35.1-43.9); Red Blood Count 3.74 M/mm3 (4.2-5.4); White Blood Count 9.2 K/mm3 (4.4-11.0)
[2021-12-19 21:02] LABS: Anion Gap 8 (5-15); BUN 12 mg/dL (7-18); BUN/Creat Ratio 12.2 RATIO (10-20); Calcium,Total 9.4 mg/dL (8.5-10.1); Chloride 96 mmol/L (98-107); Creatinine, Serum 0.98 mg/dL (0.55-1.02); EST Glomerular Filtration Rate 59 mL/min (>60); Est Glom Filt Rate - Afr Amer 72 mL/min (>60); Estimated Creatinine Clearance 42.25 ml/min; Glucose 339 mg/dL (74-106); Potassium 3.4 mmol/L (3.5-5.1); Sodium Level 136 mmol/L (136-145); Troponin-I HS 5 pg/mL (3.0-54.0)
[2021-12-19] MEDS: Insulin Lispro 100 UNIT/ML INSULN.PEN 10 UNIT SC (21:13)
--- NOTE | 2021-12-19 21:14 | EX.ED.DYSGE1 ---
HPI History of Present Illness Chief Complaint: Palpitations Informant: patient Narrative Narrative: Patient states she has been having some palpitations. This has been going off and on for a week or so. This is also gone along with her breathing that she thinks has gotten worse. She has chronic COPD and is on home oxygen. When her breathing gets worse she gets palpitations. Breathing treatments do help her. She saw her j2ee architect. A new medicine is prescribed but she cannot afford to get it until 07 January. She is not sure what this medicine is but it goes in her inhaler. She is not coughing up any sputum or having fevers or chills. She states sometimes she gets a little chest discomfort but this is not really new. Today she has had more palpitations after an iron infusion. She has had iron infusions before without problems. She also thinks that she has been more anxious and upset the last day as her good friend just yesterday and she thinks this might be contributing. Nothing really brings on the symptoms. Even while I see her she states she has palpitations but her heart rate is in normal sinus rhythm with a rate of about 85 and there is no ectopy at all on it. [facility] Medical History Anemia Asthma Asthma with COPD Atherosclerotic heart disease of [place] coronary artery without angina pectoris Back pain Bilateral pneumonia CHF (congestive heart failure) Chronic respiratory failure Constipation COPD (chronic obstructive pulmonary disease) Depression Diabetes Former smoker Health care maintenance Heart disease Hepatitis History of constipation HLD (hyperlipidemia) Hypertension Lung disease On home oxygen therapy MARK (obstructive sleep apnea) Pneumonia Psoriasis Smoking greater than 40 pack years SOB (shortness of breath) Thyroid nodule Type 2 diabetes mellitus Home Medications nitroglycerin 0.4 mg sublingual tablet 0.4 mg SUBLINGUAL Q5-15M #25 tab 08/13/20 [Rx Last Taken Unknown] blood sugar diagnostic #100 each 11/05/20 [Rx Last Taken Unknown] pen needle, diabetic 32 gauge x #50 ea 12/06/20 [History Last Taken Unknown] Handicap Placard #1 ea 12/12/20 [Rx Last Taken Unknown] flash glucose scanning reader #1 ea 01/31/21 [Rx Last Taken Unknown] flash glucose sensor #2 ea 01/31/21 [Rx Last Taken Unknown] metoprolol tartrate 25 mg tablet 12.5 mg PO BID #90 tab 04/25/21 [Rx Last Taken 08/08/21] citalopram 40 mg tablet 40 mg PO QHS #90 tab 07/23/21 [Rx Last Taken 08/08/21] insulin lispro 100 unit/mL subcutaneous pen 17 unit SC TID 90 Days #45.9 ml 08/19/21 [Rx Last Taken Unknown] ipratropium 0.5 mg-albuterol 3 mg (2.5 mg base)/3 mL nebulization soln 3 ml INHALATION Q4H PRN PRN #180 ml 09/10/21 [Rx Last Taken Unknown] clopidogrel 75 mg tablet 75 mg PO DAILY #90 tab 10/06/21 [Rx Last Taken Unknown] Derekaglserafin [place] U-100 Insulin 36 unit SUBCUT DAILY 10/12/21 [History Last Taken Unknown] isosorbide mononitrate 60 mg PO DAILY 10/12/21 [History Last Taken Unknown] acetaminophen 500 mg PO QHS 10/21/21 [History Last Taken Unknown] montelukast [Singulair] 10 mg PO DAILY 10/22/21 [History Last Taken Unknown] pantoprazole 40 mg tablet,delayed release 40 mg PO DAILY tab 10/28/21 [History Last Taken Unknown] losartan 25 mg tablet 25 mg PO DAILY #30 tab 11/10/21 [Rx Last Taken Unknown] furosemide 20 mg tablet 20 mg PO DAILY #30 tab 11/12/21 [Rx Last Taken Unknown] bisacodyl 5 mg tablet,delayed release 5 mg PO QHS PRN 30 Days #30 tab 11/13/21 [Rx Last Taken Unknown] albuterol sulfate 90 mcg/actuation aerosol inhaler 2 puff INHALATION Q6H PRN #18 g 11/20/21 [Rx Last Taken Unknown] clobetasol 0.05 % topical cream 1 applic TOPICAL BID 14 Days #60 g 11/26/21 [Rx Last Taken Unknown] budesonide 1 mg/2 mL suspension for nebulization 1 mg INHALATION BID #60 ml 11/28/21 [Rx Last Taken Unknown] risperidone 1 mg tablet 1 mg PO QHS #90 tab 12/02/21 [Rx Last Taken Unknown] alprazolam 0.25 mg tablet 0.25 mg PO QHS #30 tab 12/08/21 [Rx Last Taken Unknown] atorvastatin 80 mg tablet 80 mg PO QHS #90 tab 12/10/21 [Rx Last Taken Unknown] Allergy/AdvReac Type Severity Reaction Status Date / Time amoxicillin [Amoxicillin] Allergy Intermediate Rash Verified 12/18/21 13:12 gabapentin [From Neurontin] Allergy Shortness Verified 12/18/21 13:12 of breath levofloxacin [From Levaquin] Allergy Hives Verified 12/18/21 13:12 pseudoephedrine HCl Allergy Shortness Verified 12/18/21 13:12 [From Sudafed] of breath red dye Allergy Hives Verified 12/18/21 13:12 prednisone AdvReac Severe mean mood Verified 12/18/21 13:12 codeine AdvReac HEADACHE Verified 12/18/21 13:12 Family History Brother Heart disease Mother Colon cancer Heart disease Surgical History History of cholecystectomy History of coronary artery stent placement History of left heart catheterization (LHC) (~09/23/20) Hx of CABG Stented coronary artery (12/28/18) Social History Smoking Status: Former smoker pack-years: 40 how long ago did patient quit smokin year ago alcohol intake: never substance use type: does not use caffeine: Yes Type: carbonated beverages and tea what type of physical activity do you participate in: none ROS ROS ED Constitutional Constitutional ED: Denies chills or fever(s) Eyes Eyes: Denies blurry vision ENT ENT ED: Denies rhinorrhea or sore throat Cardiovascular Cardiovascular: Reports palpitations and racing heartbeat Respiratory/Chest Respiratory/Chest: Reports cough; Denies sputum Gastrointestinal Gastrointestinal: Denies nausea or vomiting Genitourinary Genitourinary ED: Denies dysuria Musculoskeletal Musculoskeletal: Denies myalgias Integumentary Denies rash Neurologic Neurologic: Denies headache(s) Psychiatric Psychiatric: Reports anxiety and depression Endocrine Endocrinology: Denies polyuria Allergic/Immunologic Allergic/Immunologic ED: Denies urticaria EXAM Physical Exam Const Vital Signs: 12/19/21 19:57 12/19/21 20:00 12/19/21 20:22 Temperature 98.6 F 98.6 F Temperature Source Oral Oral Pulse Rate 85 85 Respiratory Rate 25 H 25 H Respiratory Effort Normal Respiratory Pattern Blood Pressure 156/85 H 144/60 H Blood Pressure Mean 108 88 Pulse Ox 100 100 Oxygen Delivery Method Nasal Cannula Nasal Cannula Oxygen Flow Rate (L/min) 4 4 12/19/21 20:34 Temperature Temperature Source Pulse Rate 81 Respiratory Rate 21 H Respiratory Effort Respiratory Pattern Tachypnea Blood Pressure Blood Pressure Mean Pulse Ox Oxygen Delivery Method Oxygen Flow Rate (L/min) Positive well nourished, well developed and obese General Appearance ED: well developed and NAD; Negative for cyanotic or diaphoretic Nutritional Appearance: obese HEENT Negative for trauma or tenderness Eyes General Eye ED: Negative for pale conjunctiva or scleral icterus Neck no JVD Chest Wall inspection of chest normal Resp normal respiratory effort Resp Narrative: He does have just a hint of expiratory wheezing. No rales or rhonchi. No pain with a deep breath. Auscultation: wheezes Cardio regular rate, regular rhythm and no murmurs Rhythm: Negative for abnormal rhythm GI normal to inspection, nondistended, normoactive bowel sounds and non-tender Palpation: soft Back/Spine no CVA tenderness Extremity Extremity Narrative: No tenderness. No significant edema. No asymmetry. General Extremety ED: Negative for tenderness Neuro oriented x3 Sensorium / Orientation: alert Psych mental status grossly normal Psych Narrative: Patient awake alert and appropriate. When she talks about her friend who just she does get tearful which is certainly appropriate. Skin no rashes or lesions noted MDM MDM MDM Narrative Medical decision making narrative: Patient has some mild anemia. White counts normal. Electrolytes show minimally decreased potassium which is not likely the source of her symptoms. Glucose is elevated at 339 but she is almost always high. Troponin and BNP are both negative. And patient has been having symptoms off and on for a bit. X-ray showed no acute process. Patient feels much better. She would like to go home. She has all her meds for her COPD. I do not think this is an acute exacerbation. Lab Data Attestation: I reviewed the patient's lab results. Labs: Laboratory Results - last 24 hr 12/19/21 12/19/21 12/19/21 20:30 20:30 20:30 WBC 9.2 RBC 3.74 L Hgb 9.4 L Hct 31.6 L MCV 84.5 MCH 25.1 L MCHC 29.7 L RDW Std Deviation 46.5 H RDW Coeff of Malcom 16.2 H Plt Count 284 MPV 11.5 Immature Gran % (Auto) 0.900 Neut % (Auto) 78.5 H Lymph % (Auto) 12.7 L [place] % (Auto) 5.9 Eos % (Auto) 1.5 Baso % (Auto) 0.5 Absolute Neuts (auto) 7.2 Absolute Lymphs (auto) 1.17 Nucleated RBC % 0 Sodium 136 Potassium 3.4 L Chloride 96 L Carbon Dioxide 32.0 Anion Gap 8 BUN 12 Creatinine 0.98 Estim Creat Clear Calc 42.25 Est GFR (MDRD) Af Amer 72 Est GFR (MDRD) Non-Af 59 L BUN/Creatinine Ratio 12.2 Glucose 339 H Calcium 9.4 Troponin I High Sens 5 B-Natriuretic Peptide 26.8 Radiography Diagnostic Testing: Clinical Impression(s) from Imaging Studies Chest X-Ray 12/19/21 20:24 IMPRESSION: There are no acute findings. Electronically Signed: Andrew Wheeler MD at 21:34 EDT Reading Location ID and State: [facility] / [place] , Service support , Discharge Plan Triage Chief Complaint: Palpitations ED Provider: Sandeep Fong Dx/Rx/DC Orders Clinical Impression: Intermittent palpitations Instructions: ED Palpitations Prescriptions: No Action nitroglycerin 0.4 mg tablet, sublingual 0.4 mg SUBLINGUAL Q5-15M Qty: 25 RF: 3 (DME) pen needle, diabetic 32 gauge x 5/32 needle See Rx Instructions ea .ROUTE .MEDSUPPLY Qty: 50 RF: 0 (DME) Handicap Placard See Rx Instructions .ROUTE .MEDSUPPLY Qty: 1 RF: 0 clobetasol 0.05 % cream 1 applic topical BID 14 Days Qty: 60 RF: 2 pantoprazole 40 mg tablet,delayed release (DR/EC) 40 mg PO DAILY RF: 0 insulin lispro [Humalog KwikPen Insulin] 100 unit/mL insulin pen 17 unit SC TID 90 Days Qty: 45.9 RF: 3 budesonide 1 mg/2 mL suspension for nebulization 1 mg inhalation BID Qty: 60 RF: 6 losartan 25 mg tablet 25 mg PO DAILY Qty: 30 RF: 6 Basaglar CarlenePen U-100 Insulin 100 unit/mL (3 mL) insulin pen 36 unit subcut DAILY RF: 0 isosorbide mononitrate 60 mg tablet extended release 24 hr 60 mg PO DAILY RF: 0 acetaminophen 500 MG tablet 500 mg PO QHS RF: 0 montelukast [Singulair] 10 mg Tablet 10 mg PO DAILY RF: 0 (DME) Accu-Chek Aundrea Plus test strp Strip See Rx Instructions .ROUTE .MEDSUPPLY Qty: 100 RF: 8 (DME) FreeStyle Emily 2 [place] Misc See Rx Instructions .ROUTE .MEDSUPPLY Qty: 1 RF: 0 (DME) FreeStyle Emily 2 Sensor Kit See Rx Instructions .ROUTE .MEDSUPPLY Qty: 2 RF: 12 metoprolol tartrate 25 mg tablet 12.5 mg PO BID Qty: 90 RF: 3 citalopram 40 mg tablet 40 mg PO QHS Qty: 90 RF: 1 ipratropium-albuterol 0.5 mg-3 mg(2.5 mg base)/3 mL solution for nebulization 3 ml INHALATION Q4H PRN PRN (Reason: SOB &/OR WHEEZING) Qty: 180 RF: 6 clopidogrel 75 mg tablet 75 mg PO DAILY Qty: 90 RF: 3 furosemide [Lasix] 20 mg tablet 20 mg PO DAILY Qty: 30 RF: 6 bisacodyl [Dulcolax (bisacodyl)] 5 mg tablet,delayed release (DR/EC) 5 mg PO QHS PRN (Reason: constipation) 30 Days Qty: 30 RF: 3 albuterol sulfate 90 mcg/actuation HFA aerosol inhaler 2 puff INHALATION Q6H PRN (Reason: shortness of breath or wheezing) Qty: 18 RF: 3 risperidone 1 mg tablet 1 mg PO QHS Qty: 90 RF: 1 alprazolam 0.25 mg tablet 0.25 mg PO QHS Qty: 30 RF: 0 atorvastatin 80 mg tablet 80 mg PO QHS Qty: 90 RF: 3 Primary Care Provider: Billy Madera Referrals: Billy Madera MD [Primary Care Provider] - 3-5 Days if not improving Disposition Disposition: Home, Self Care
[2021-12-19 21:20] LABS: BNP,B-Type NATRIURETIC PEPTIDE 26.8 pg/mL (0-100)
[2021-12-19 22:44] VITALS: BP 135/66; PULSE 79; RESP 19; O2SAT 98
== END 2021-12-20 00:21 | disposition home or self-care (01) ==
PROVIDERS: Emergency Provider Emergency Medicine; PCP Internal Medicine; Visit Provider Emergency Medicine
DX: R00.2 Palpitations (principal); J44.9 Chronic obstructive pulmonary disease, unspecified; I11.0 Hypertensive heart disease with heart failure; I50.9 Heart failure, unspecified; J96.10 Chronic respiratory failure, unspecified whether with hypoxia or hypercapnia; E11.9 Type 2 diabetes mellitus without complications; Z79.4 Long term (current) use of insulin; D64.9 Anemia, unspecified; Z87.891 Personal history of nicotine dependence; I25.10 Atherosclerotic heart disease of native coronary artery without angina pectoris; E78.5 Hyperlipidemia, unspecified; Z99.81 Dependence on supplemental oxygen; G47.33 Obstructive sleep apnea (adult) (pediatric); Z79.899 Other long term (current) drug therapy; Z79.02 Long term (current) use of antithrombotics/antiplatelets
CPT/HCPCS: 96365; 71045; 80048; 83880; 84484; 85025; 93005; 94640; 99285; J1756; J7050; A4216

== ENCOUNTER → 2021-12-19 | Outpatient (CLI) | payer MEDICARE, SELFPAY ==
[2021-11-03 12:08] VITALS: BMI 34.9
[2021-12-19 13:28] VITALS: BP 137/40; PULSE 77; RESP 20; TEMP 36.9; O2SAT 99; BMI 40.9
[2021-12-19] MEDS: 0.9% NaCl Peripheral Flush Adult/Peds IV (13:37)
[2021-12-19] MEDS: 0.9% NaCl IVPB Med Flush (250 mL) 15 ML IV (13:37)
[2021-12-19 14:27] VITALS: BP 142/52; PULSE 77; RESP 16; TEMP 37.1; O2SAT 100
== END | disposition home or self-care (01) ==
LOC: MEDOUTP 13:19
PROVIDERS: PCP Internal Medicine; Referring Provider Internal Medicine; Visit Provider Internal Medicine
DX: D64.9 Anemia, unspecified (principal)
CPT/HCPCS: 96365; J1756; J7050; A4216

== ENCOUNTER → 2021-12-22 | Outpatient (CLI) | payer MEDICARE, SELFPAY ==
[2021-11-03 12:08] VITALS: BMI 34.9
[2021-12-22 13:50] VITALS: BP 135/53; PULSE 87; RESP 20; TEMP 36.3; O2SAT 99
[2021-12-22] MEDS: 0.9% NaCl Peripheral Flush Adult/Peds IV (13:55)
[2021-12-22] MEDS: 0.9% NaCl IVPB Med Flush (250 mL) 15 ML IV (14:08)
[2021-12-22 14:58] VITALS: BP 120/50; PULSE 71; RESP 18; TEMP 36.6; O2SAT 97
== END | disposition home or self-care (01) ==
LOC: MEDOUTP 13:21
PROVIDERS: PCP Internal Medicine; Referring Provider Internal Medicine; Visit Provider Internal Medicine
DX: D64.9 Anemia, unspecified (principal)
CPT/HCPCS: 96365; J1756; J7050; A4216

== ENCOUNTER → 2021-12-29 | Outpatient (CLI) | payer MEDICARE, SELFPAY ==
[2021-11-03 12:08] VITALS: BMI 34.9
[2021-12-29 13:29] VITALS: BP 139/57; PULSE 70; RESP 18; TEMP 36; O2SAT 100
[2021-12-29] MEDS: 0.9% NaCl IVPB Med Flush (250 mL) 15 ML IV (13:34)
[2021-12-29] MEDS: 0.9% NaCl Peripheral Flush Adult/Peds IV (13:35)
[2021-12-29 14:41] VITALS: BP 128/69; PULSE 67
== END | disposition home or self-care (01) ==
LOC: MEDOUTP 13:22
PROVIDERS: PCP Internal Medicine; Referring Provider Internal Medicine; Visit Provider Internal Medicine
DX: D64.9 Anemia, unspecified (principal)
CPT/HCPCS: 96365; 96366; J1756; J7050; A4216

== ENCOUNTER 2022-01-20 21:11 | Emergency (ER) | payer MEDICARE, SELFPAY ==
[2021-11-03 12:08] VITALS: BMI 34.9
[2022-01-20] VITALS (7 sets, daily range): BP systolic 138–158; BP diastolic 53–89; PULSE 67–88; RESP 16–22; TEMP 36.4; O2SAT 97–100; BMI 36.6
--- NOTE | 2022-01-20 21:54 | EDS_ITS ---
HPI History of Present Illness Chief Complaint: Shortness of Breath Informant: patient Onset/Context/Timing Onset: Today Context: gradual Timing: Continuous Quality: Positive for Dyspnea on exertion and - (I cannot catch my breath) Worsened by: Exertion Relieved by: Nothing Associated Symptoms ear pain, fever and subjective; Negative for cough, rhinorrhea, sore throat, chills, clear sputum, white sputum, yellow sputum or green sputum Chest Pain: Positive for Pressure Narrative Narrative: Patient presents with shortness of breath that began today. Patient states it is gradually gotten worse. Patient states it got worse over the last 3 hours. Patient states it has been constant. Patient states she feels like she cannot catch her breath. Patient states it is worse with exertion. Patient states nothing seems to help with it. Patient denies any cough. Patient does admit to some left ear pain. Patient denies any rhinorrhea. Patient admits to subjective fever. Patient also admits to some chest pain that feels like someone is laying on her chest. [facility] Medical History Anemia Asthma Asthma with COPD Atherosclerotic heart disease of [place] coronary artery without angina pectoris Back pain Bilateral pneumonia CHF (congestive heart failure) Chronic respiratory failure Constipation COPD (chronic obstructive pulmonary disease) Depression Diabetes Former smoker Health care maintenance Heart disease Hepatitis History of constipation HLD (hyperlipidemia) Hypertension Lung disease On home oxygen therapy MARK (obstructive sleep apnea) Pneumonia Psoriasis Smoking greater than 40 pack years SOB (shortness of breath) Thyroid nodule Type 2 diabetes mellitus Home Medications blood sugar diagnostic #100 each 11/05/20 [Rx Last Taken Unknown] pen needle, diabetic 32 gauge x #50 ea 12/06/20 [History Last Taken Unknown] Handicap Placard #1 ea 12/12/20 [Rx Last Taken Unknown] flash glucose scanning reader #1 ea 01/31/21 [Rx Last Taken Unknown] flash glucose sensor #2 ea 01/31/21 [Rx Last Taken Unknown] metoprolol tartrate 25 mg tablet 12.5 mg PO BID #90 tab 04/25/21 [Rx Last Taken 08/08/21] citalopram 40 mg tablet 40 mg PO QHS #90 tab 07/23/21 [Rx Last Taken 08/08/21] insulin lispro 100 unit/mL subcutaneous pen 17 unit SC TID 90 Days #45.9 ml 01/11/22 [Rx Last Taken Unknown] ipratropium 0.5 mg-albuterol 3 mg (2.5 mg base)/3 mL nebulization soln 3 ml INHALATION Q4H PRN PRN #180 ml 09/10/21 [Rx Last Taken Unknown] clopidogrel 75 mg tablet 75 mg PO DAILY #90 tab 10/06/21 [Rx Last Taken Unknown] insulin glargine [Basaglar KwikPen U-100 Insulin] 36 unit SUBCUT DAILY 10/12/21 [History Last Taken Unknown] isosorbide mononitrate 60 mg PO DAILY 10/12/21 [History Last Taken Unknown] acetaminophen 500 mg PO QHS 10/21/21 [History Last Taken Unknown] pantoprazole 40 mg tablet,delayed release 40 mg PO DAILY tab 10/28/21 [History Last Taken Unknown] losartan 25 mg tablet 25 mg PO DAILY #30 tab 11/10/21 [Rx Last Taken Unknown] furosemide 20 mg tablet 20 mg PO DAILY #30 tab 11/12/21 [Rx Last Taken Unknown] bisacodyl 5 mg tablet,delayed release 5 mg PO QHS PRN 30 Days #30 tab 11/13/21 [Rx Last Taken Unknown] albuterol sulfate 90 mcg/actuation aerosol inhaler 2 puff INHALATION Q6H PRN #18 g 11/20/21 [Rx Last Taken Unknown] budesonide 1 mg/2 mL suspension for nebulization 1 mg INHALATION BID #60 ml 11/28/21 [Rx Last Taken Unknown] risperidone 1 mg tablet 1 mg PO QHS #90 tab 12/02/21 [Rx Last Taken Unknown] atorvastatin 80 mg tablet 80 mg PO QHS #90 tab 12/10/21 [Rx Last Taken Unknown] alprazolam 0.25 mg tablet 0.25 mg PO QHS #30 tab 01/06/22 [Rx Last Taken Unknown] nitroglycerin 0.4 mg SUBLINGUAL Q5-15M PRN 01/20/22 [History Last Taken Unknown] Allergy/AdvReac Type Severity Reaction Status Date / Time amoxicillin [Amoxicillin] Allergy Intermediate Rash Verified 01/20/22 21:15 gabapentin [From Neurontin] Allergy Shortness Verified 01/20/22 21:15 of breath levofloxacin [From Levaquin] Allergy Hives Verified 06/14/22 21:15 pseudoephedrine HCl Allergy Shortness Verified 01/20/22 21:15 [From Sudafed] of breath red dye Allergy Hives Verified 01/20/22 21:15 prednisone AdvReac Severe mean mood Verified 01/20/22 21:15 codeine AdvReac HEADACHE Verified 01/20/22 21:15 Family History Brother Heart disease Mother Colon cancer Heart disease Surgical History History of cholecystectomy History of coronary artery stent placement History of left heart catheterization (LHC) (~09/23/20) Hx of CABG Stented coronary artery (12/28/18) Social History Smoking Status: Former smoker pack-years: 40 how long ago did patient quit smokin year ago alcohol intake: never substance use type: does not use caffeine: Yes Type: carbonated beverages and tea what type of physical activity do you participate in: none ROS ROS ED Constitutional Constitutional ED: Reports fever(s); Denies chills Eyes Eyes: Denies blurry vision or change in vision ENT ENT ED: Reports ear pain left; Denies rhinorrhea or sore throat Cardiovascular Cardiovascular: Reports chest pain; Denies palpitations Respiratory/Chest Respiratory/Chest: Reports dyspnea; Denies cough Gastrointestinal Gastrointestinal: Denies nausea or vomiting Genitourinary Genitourinary ED: Denies dysuria or hematuria Musculoskeletal Musculoskeletal: Denies back pain or neck pain Integumentary Denies abscess or rash Neurologic Neurologic: Reports headache(s); Denies weakness Allergic/Immunologic Allergic/Immunologic ED: Denies mouth swelling or urticaria EXAM Physical Exam Const Vital Signs: 01/20/22 21:12 01/20/22 21:26 01/20/22 22:01 Temperature 97.6 F L Temperature Source Temporal Pulse Rate 67 Respiratory Rate 22 H Respiratory Effort Normal Non-Labored Respiratory Depth Normal Respiratory Pattern Normal Blood Pressure 158/68 H Blood Pressure Mean 98 Pulse Ox 97 100 Oxygen Delivery Method Nasal Cannula Room Air Nasal Cannula Oxygen Flow Rate (L/min) 4 4 4 01/20/22 22:10 01/20/22 22:33 01/20/22 23:00 Temperature Temperature Source Pulse Rate 88 74 75 Respiratory Rate 19 H 22 H 16 Respiratory Effort Respiratory Depth Respiratory Pattern Tachypnea Blood Pressure 138/53 H 140/79 H Blood Pressure Mean 81 99 Pulse Ox 100 97 Oxygen Delivery Method Nasal Cannula Nasal Cannula Oxygen Flow Rate (L/min) 4 4 Positive well nourished and well developed General Appearance ED: well developed and NAD HEENT Reports moist mucous membranes Neck supple and no JVD Resp normal respiratory effort Auscultation: diminished lung sounds diffuse Cardio regular rate and regular rhythm GI non-tender Palpation: soft Neuro oriented x3, CN's II-XII intact bilaterally and no sensory deficits noted Sensorium / Orientation: alert Motor Exam: strength 5/5 throughout Psych mental status grossly normal MDM MDM MDM Narrative Medical decision making narrative: Patient was given a DuoNeb aerosol here. EKG was obtained. On my interpretation, it showed a normal sinus rhythm with a rate of 76. [place] interval, QRS interval, and QTc intervals were all normal. [place] was normal. There are no acute ST or T wave changes. Portable 1 view chest x-ray was obtained. On my interpretation, lung mera are clear. There is normal cardiac silhouette. Bony thorax is normal. There is no acute process noted. Radiologist also interpreted the x-ray and agrees. CBC shows mild anemia with a hemoglobin of 10.8 and hematocrit 34.1. PT with INR and PTT are within normal limits. Comprehensive metabolic profile shows a mild hyponatremia of 132. High-sensitivity troponin was normal at 8. BNP was normal at 76.8. Patient is feeling better on reevaluation. Patient wants to go home. Patient had is a HEART score of 3. Patient was advised that this is low risk for acute cardiac event. Patient was instructed to continue her home aerosols as prescribed. Patient was instructed to follow-up with her primary care physician in 3 to 5 days. Patient was instructed return if worse in any way. Patient understood and was agreeable with the plan. All questions were answered. Lab Data Attestation: I reviewed the patient's lab results. Labs: Laboratory Results - last 24 hr 01/20/22 01/20/22 01/20/22 21:15 21:15 21:15 WBC 10.7 RBC 3.98 L Hgb 10.8 L Hct 34.1 L MCV 85.7 MCH 27.1 MCHC 31.7 L RDW Std Deviation 50.1 H RDW Coeff of Malcom 16.0 H Plt Count 261 MPV 11.6 Immature Gran % (Auto) 0.700 Neut % (Auto) 76.9 H Lymph % (Auto) 14.8 L [place] % (Auto) 5.3 Eos % (Auto) 1.7 Baso % (Auto) 0.6 Absolute Neuts (auto) 8.3 H Absolute Lymphs (auto) 1.58 Nucleated RBC % 0 PT 13.2 INR 1.0 APTT 27.0 Sodium 132 L Potassium 3.4 L Chloride 95 L Carbon Dioxide 29.0 Anion Gap 8 BUN 12 Creatinine 0.90 Estim Creat Clear Calc 46.00 Est GFR (MDRD) Af Amer 79 Est GFR (MDRD) Non-Af 65 BUN/Creatinine Ratio 13.3 Glucose 319 H Calcium 9.3 Total Bilirubin 0.30 AST 13 L ALT 23 Alkaline Phosphatase 122 H Troponin I High Sens 8 B-Natriuretic Peptide Total Protein 6.6 Albumin 3.5 Globulin 3.1 Albumin/Globulin Ratio 1.1 01/20/22 21:15 WBC RBC Hgb Hct MCV MCH MCHC RDW Std Deviation RDW Coeff of Malcom Plt Count MPV Immature Gran % (Auto) Neut % (Auto) Lymph % (Auto) [place] % (Auto) Eos % (Auto) Baso % (Auto) Absolute Neuts (auto) Absolute Lymphs (auto) Nucleated RBC % PT INR APTT Sodium Potassium Chloride Carbon Dioxide Anion Gap BUN Creatinine Estim Creat Clear Calc Est GFR (MDRD) Af Amer Est GFR (MDRD) Non-Af BUN/Creatinine Ratio Glucose Calcium Total Bilirubin AST ALT Alkaline Phosphatase Troponin I High Sens B-Natriuretic Peptide 76.8 Total Protein Albumin Globulin Albumin/Globulin Ratio Radiography Chest X-Ray - ED: 1 View, Read by ED Physician, Read by Radiologist and No Acute Disease Diagnostic Testing: Clinical Impression(s) from Imaging Studies Chest X-Ray 01/20/22 22:15 IMPRESSION: No acute radiographic abnormalities. Electronically Signed: Ranjeet Dong MD at 22:37 EDT , EKG Initial EKG: Attestation: I personally reviewed and interpreted this EKG as follows: Interpretation: Sinus Rhythm (76) and No Acute Injury Pattern Discharge Plan Triage Chief Complaint: Shortness of Breath ED Provider: Omi Frazier Dx/Rx/DC Orders Clinical Impression: COPD (chronic obstructive pulmonary disease), Dyspnea Instructions: ED COPD Flare Prescriptions: No Action (DME) pen needle, diabetic 32 gauge x 5/32 needle See Rx Instructions ea .ROUTE .MEDSUPPLY Qty: 50 RF: 0 (DME) Handicap Placard See Rx Instructions .ROUTE .MEDSUPPLY Qty: 1 RF: 0 pantoprazole 40 mg tablet,delayed release (DR/EC) 40 mg PO DAILY RF: 0 insulin lispro [Humalog KwikPen Insulin] 100 unit/mL insulin pen 17 unit SC TID 90 Days Qty: 45.9 RF: 3 budesonide 1 mg/2 mL suspension for nebulization 1 mg inhalation BID Qty: 60 RF: 6 losartan 25 mg tablet 25 mg PO DAILY Qty: 30 RF: 6 insulin glargine [Basaglar KwikPen U-100 Insulin] 100 unit/mL (3 mL) insulin pen 36 unit subcut DAILY RF: 0 isosorbide mononitrate 60 mg tablet extended release 24 hr 60 mg PO DAILY RF: 0 acetaminophen 500 MG tablet 500 mg PO QHS RF: 0 nitroglycerin 0.4 mg tablet, sublingual 0.4 mg SUBLINGUAL Q5-15M PRN (Reason: Pain) RF: 0 (DME) Accu-Chek Aundrea Plus test strp Strip See Rx Instructions .ROUTE .MEDSUPPLY Qty: 100 RF: 8 (DME) FreeStyle Emily 2 [place] Misc See Rx Instructions .ROUTE .MEDSUPPLY Qty: 1 RF: 0 (DME) FreeStyle Emily 2 Sensor Kit See Rx Instructions .ROUTE .MEDSUPPLY Qty: 2 RF: 12 metoprolol tartrate 25 mg tablet 12.5 mg PO BID Qty: 90 RF: 3 citalopram 40 mg tablet 40 mg PO QHS Qty: 90 RF: 1 ipratropium-albuterol 0.5 mg-3 mg(2.5 mg base)/3 mL solution for nebulization 3 ml INHALATION Q4H PRN PRN (Reason: SOB &/OR WHEEZING) Qty: 180 RF: 6 clopidogrel 75 mg tablet 75 mg PO DAILY Qty: 90 RF: 3 furosemide [Lasix] 20 mg tablet 20 mg PO DAILY Qty: 30 RF: 6 bisacodyl [Dulcolax (bisacodyl)] 5 mg tablet,delayed release (DR/EC) 5 mg PO QHS PRN (Reason: constipation) 30 Days Qty: 30 RF: 3 albuterol sulfate 90 mcg/actuation HFA aerosol inhaler 2 puff INHALATION Q6H PRN (Reason: shortness of breath or wheezing) Qty: 18 RF: 3 risperidone 1 mg tablet 1 mg PO QHS Qty: 90 RF: 1 atorvastatin 80 mg tablet 80 mg PO QHS Qty: 90 RF: 3 alprazolam 0.25 mg tablet 0.25 mg PO QHS Qty: 30 RF: 0 Primary Care Provider: Billy Madera Referrals: Billy Madera MD [Primary Care Provider] - 3-5 Days Disposition Disposition: Home, Self Care
--- NOTE | 2022-01-20 21:58 | EKG12_ITS ---
Test Reason : Blood Pressure : / mmHG Vent. Rate : 076 BPM Atrial Rate : 076 BPM P-R Int : 148 ms QRS Dur : 082 ms QT Int : 402 ms P-R-T Axes : 057 014 044 degrees QTc Int : 452 ms Normal sinus rhythm Normal ECG Confirmed by BANG MELVIN, ROSALIA ([id number]), legal editor JAVIER COLBY ([id number]) on 01/21/2022 10:15:16 AM Referred By: ERICKA Confirmed By:ROSALIA CUENCA MD
[2022-01-20] MEDS: Ipratropium/Albuterol Sulfate 3 ML AMPUL.NEB INHALATION (22:10)
--- NOTE | 2022-01-20 22:15 | RAD_ITS ---
INDICATION: Dyspnea EXAMINATION/TECHNIQUE: X-RAY - XR Chest 1 View COMPARISON: 12/19/2021. FINDINGS: The lungs are clear. Tortuous and calcified thoracic aorta. The heart is mildly enlarged. No pleural effusion or pneumothorax. Degenerative changes of the thoracic spine. RAD/Chest 1 View (Portable) IMPRESSION: No acute radiographic abnormalities. Electronically Signed: Ranjeet Dong MD at 22:37 EDT ,
[2022-01-20 22:22] LABS: Absolute Lymphocyte Count 1.58 X10^3/uL (0.83-4.51); Absolute Neutrophil Count 8.3 X10^3/uL (2.0-7.7); Basophil# 0.06 X10^3/uL; Basophil% 0.6 % (0-1); Eosinophil# 0.18 X10^3/uL; Eosinophils% 1.7 % (0-5); Hematocrit 34.1 % (37-47); Hemoglobin 10.8 g/dL (12.0-15.0); Lymphocyte # 1.58 X10^3/ul (0.83-4.51); Lymphocyte % 14.8 % (19-41); Mean Corp Hgb Conc 31.7 g/dL (32-36); Mean Corpuscular Hgb 27.1 pg (27.0-32.0); Mean Corpuscular Volume 85.7 fL (81-99); Mean Platelet Vol. 11.6 fl (6.2-12.0); Monocyte# 0.57 X10^3/uL; Monocyte% 5.3 % (0-10); NRBC Flagged by Analyzer 0 % (0-5); Neutrophil # 8.25 X10^3/uL (2.7-7.7); Neutrophil % 76.9 % (47-70); Platelet Count 261 K/mm3 (150-450); RBC Distribution Width SD 50.1 fl (35.1-43.9); Red Blood Count 3.98 M/mm3 (4.2-5.4); White Blood Count 10.7 K/mm3 (4.4-11.0)
[2022-01-20 22:33] LABS: Prothrombin Time (Protime)PT. 13.2 SECONDS (11.7-14.9)
[2022-01-20 22:41] LABS: ALB/GLOB Ratio 1.1 RATIO (0.9-2.4); AST(SGOT) 13 U/L (15-37); Alanine Aminotransfer ALT/SGPT 23 U/L (13-56); Albumin, Serum 3.5 g/dL (3.2-5.0); Alkaline Phosphatase 122 U/L (45-117); Anion Gap 8 (5-15); BUN 12 mg/dL (7-18); BUN/Creat Ratio 13.3 RATIO (10-20); Calcium,Total 9.3 mg/dL (8.5-10.1); Chloride 95 mmol/L (98-107); EST Glomerular Filtration Rate 65 mL/min (>60); Est Glom Filt Rate - Afr Amer 79 mL/min (>60); Globulin 3.1 g/dL (2.2-4.2); Glucose 319 mg/dL (74-106); Potassium 3.4 mmol/L (3.5-5.1); Protein, Total 6.6 g/dL (6.4-8.2); Sodium Level 132 mmol/L (136-145); Troponin-I HS 8 pg/mL (3.0-54.0)
[2022-01-20 22:42] LABS: BNP,B-Type NATRIURETIC PEPTIDE 76.8 pg/mL (0-100)
[2022-01-21] VITALS: RESP 18
== END 2022-01-21 00:49 | disposition home or self-care (01) ==
PROVIDERS: Emergency Provider Emergency Medicine; PCP Internal Medicine; Visit Provider Emergency Medicine
DX: J44.9 Chronic obstructive pulmonary disease, unspecified (principal); I11.0 Hypertensive heart disease with heart failure; I50.9 Heart failure, unspecified; J96.10 Chronic respiratory failure, unspecified whether with hypoxia or hypercapnia; E11.9 Type 2 diabetes mellitus without complications; Z79.4 Long term (current) use of insulin; E78.5 Hyperlipidemia, unspecified; H92.02 Otalgia, left ear; I25.10 Atherosclerotic heart disease of native coronary artery without angina pectoris; E87.1 Hypo-osmolality and hyponatremia; D64.9 Anemia, unspecified; Z87.891 Personal history of nicotine dependence; Z79.02 Long term (current) use of antithrombotics/antiplatelets; Z79.899 Other long term (current) drug therapy; G47.33 Obstructive sleep apnea (adult) (pediatric); Z99.81 Dependence on supplemental oxygen
CPT/HCPCS: 71045; 80053; 83880; 84484; 85025; 85610; 85730; 87428; 93005; 94640; 99285; A4216

== ENCOUNTER 2022-01-27 23:07 | Emergency (ER) | payer MEDICARE, SELFPAY ==
[2021-11-03 12:08] VITALS: BMI 34.9
[2022-01-27 23:08] VITALS: TEMP 36.7; BMI 41.5
[2022-01-27 23:14] VITALS: BP 218/76; PULSE 93; RESP 36; O2SAT 97
[2022-01-27 23:15] VITALS: O2SAT 97
--- NOTE | 2022-01-27 23:25 | EKG12_ITS ---
Test Reason : DYSRHYTHMIA Blood Pressure : / mmHG Vent. Rate : 083 BPM Atrial Rate : 083 BPM P-R Int : 154 ms QRS Dur : 086 ms QT Int : 402 ms P-R-T Axes : 046 032 048 degrees QTc Int : 472 ms Normal sinus rhythm Normal ECG Confirmed by RAMIREZ MELVIN, ARPITA ([id number]), news copy editor JAVIER COLBY ([id number]) on 01/29/2022 10:24:50 AM Referred By: DIANE Confirmed By:ARPITA GUZMÁN MD
--- NOTE | 2022-01-27 23:26 | ED.VIS.DYS ---
HPI History of Present Illness Chief Complaint: Shortness of Breath Informant: patient Narrative Narrative: Patient states her COPD has been acting up today. She is in air conditioning but it is hot out. She has a chronic cough that is unchanged. No change in her sputum. No fevers chills. No chest pain. She just feels that she is wheezing and tighter than normal. She is on 5-1/2 L of oxygen at home. She admits that she gets anxious when her breathing gets bad which is very understandable. She states it has been a while since she is on steroids because prednisone causes her to be upset and mean. No fevers. No nausea vomiting. No other complaints. 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 Back pain Bilateral pneumonia CHF (congestive heart failure) Chronic respiratory failure Constipation COPD (chronic obstructive pulmonary disease) Depression Diabetes Former smoker Health care maintenance Heart disease Hepatitis History of constipation HLD (hyperlipidemia) Hypertension Lung disease On home oxygen therapy MARK (obstructive sleep apnea) Pneumonia Psoriasis Smoking greater than 40 pack years SOB (shortness of breath) Thyroid nodule Type 2 diabetes mellitus Home Medications blood sugar diagnostic (Accu-Chek Aundrea Plus test strp) #100 ea 11/05/20 [Rx Last Taken Unknown] pen needle, diabetic 32 gauge x #50 ea 12/06/20 [History Last Taken Unknown] Handicap Placard #1 ea 12/12/20 [Rx Last Taken Unknown] flash glucose scanning reader (FreeStyle Emily 2 [place]) #1 ea 01/31/21 [Rx Last Taken Unknown] flash glucose sensor (FreeStyle Emily 2 Sensor) #2 ea 01/31/21 [Rx Last Taken Unknown] metoprolol tartrate 25 mg tablet 12.5 mg PO BID #90 tabs 04/25/21 [Rx Last Taken 08/08/21] citalopram 40 mg tablet 40 mg PO QHS depression #90 tabs 07/23/21 [Rx Last Taken 08/08/21] insulin lispro 100 unit/mL subcutaneous pen (Humalog KwikPen (U-100) Insulin) 17 unit (0.17 mL) subcut TID diabetes 3 months #45.9 mL 01/11/22 [Rx Last Taken Unknown] ipratropium 0.5 mg-albuterol 3 mg (2.5 mg base)/3 mL nebulization soln 3 ml inhalation Q4H PRN PRN SOB &/OR WHEEZING #180 mL 09/10/21 [Rx Last Taken Unknown] clopidogrel 75 mg tablet 75 mg PO DAILY #90 tabs 10/06/21 [Rx Last Taken Unknown] insulin glargine 100 unit/mL (3 mL) subcutaneous pen (Dorota Campbell U-100 Insulin) 36 unit subcut DAILY diabetic managment 10/12/21 [History Last Taken Unknown] isosorbide mononitrate 60 mg tablet,extended release 24 hr 60 mg PO DAILY BP 10/12/21 [History Last Taken Unknown] acetaminophen 500 mg tablet 500 mg PO QHS 10/21/21 [History Last Taken Unknown] pantoprazole 40 mg tablet,delayed release 40 mg PO DAILY 10/28/21 [History Last Taken Unknown] losartan 25 mg tablet 25 mg PO DAILY #30 tabs 11/10/21 [Rx Last Taken Unknown] furosemide 20 mg tablet (Lasix) 20 mg PO DAILY #30 tabs 11/12/21 [Rx Last Taken Unknown] bisacodyl 5 mg tablet,delayed release (Dulcolax (bisacodyl)) 5 mg PO QHS PRN constipation 30 days #30 tabs 11/13/21 [Rx Last Taken Unknown] albuterol sulfate 90 mcg/actuation aerosol inhaler 2 puff inhalation Q6H PRN shortness of breath or wheezing #18 grams 11/20/21 [Rx Last Taken Unknown] budesonide 1 mg/2 mL suspension for nebulization 1 mg (2 mL) inhalation BID #60 mL 11/28/21 [Rx Last Taken Unknown] risperidone 1 mg tablet 1 mg PO QHS anxiety #90 tabs 12/02/21 [Rx Last Taken Unknown] atorvastatin 80 mg tablet 80 mg PO QHS #90 tabs 12/10/21 [Rx Last Taken Unknown] alprazolam 0.25 mg tablet 0.25 mg PO QHS #30 tabs 01/06/22 [Rx Last Taken Unknown] nitroglycerin 0.4 mg sublingual tablet 0.4 mg sublingual Q5-15M PRN Pain 01/20/22 [History Last Taken Unknown] Allergy/AdvReac Type Severity Reaction Status Date / Time amoxicillin [Amoxicillin] Allergy Intermediate Rash Verified 01/20/22 21:15 gabapentin [From Neurontin] Allergy Shortness Verified 01/20/22 21:15 of breath levofloxacin [From Levaquin] Allergy Hives Verified 01/20/22 21:15 pseudoephedrine HCl Allergy Shortness Verified 01/20/22 21:15 [From Sudafed] of breath red dye Allergy Hives Verified 01/20/22 21:15 prednisone AdvReac Severe mean mood Verified 01/20/22 21:15 codeine AdvReac HEADACHE Verified 01/20/22 21:15 Family History Brother Heart disease Mother Colon cancer Heart disease Surgical History History of cholecystectomy History of coronary artery stent placement History of left heart catheterization (LHC) (~09/23/20) Hx of CABG Stented coronary artery (12/28/18) Social History Smoking Status: Former smoker pack-years: 40 how long ago did patient quit smokin year ago alcohol intake: never substance use type: does not use caffeine: Yes Type: carbonated beverages and tea what type of physical activity do you participate in: none ROS ROS ED Constitutional Constitutional ED: Denies chills, fever(s) or sweats Eyes Eyes: Denies change in vision ENT ENT ED: Denies rhinorrhea or sore throat Cardiovascular Cardiovascular: Denies chest pain, palpitations or racing heartbeat Respiratory/Chest Respiratory/Chest: Reports cough, dyspnea and dyspnea on exertion Gastrointestinal Gastrointestinal: Denies abdominal pain Genitourinary Genitourinary ED: Denies dysuria Musculoskeletal Musculoskeletal: Denies arthralgias Integumentary Denies rash Neurologic Neurologic: Denies headache(s) or paresthesias Psychiatric Psychiatric: Reports anxiety Endocrine Endocrinology: Denies cold intolerance or heat intolerance Hematologic/Lymphatic Hematologic/Lymphatic: Denies easy bleeding or easy bruising Allergic/Immunologic Allergic/Immunologic ED: Denies mouth swelling EXAM Physical Exam Const Vital Signs: 01/27/22 23:08 01/27/22 23:14 01/27/22 23:15 Temperature 98.1 F Temperature Source Oral Pulse Rate 93 Respiratory Rate 36 H Respiratory Effort Short of Breath Respiratory Depth Shallow Respiratory Pattern Tachypnea Blood Pressure 218/76 H Blood Pressure Mean 123 Pulse Ox 97 Oxygen Delivery Method Nasal Cannula Nasal Cannula Oxygen Flow Rate (L/min) 5 5 01/27/22 23:53 01/27/22 23:53 01/28/22 00:32 Temperature Temperature Source Pulse Rate 84 89 Respiratory Rate 22 H 34 H 27 H Respiratory Effort Short of Breath Respiratory Depth Shallow Respiratory Pattern Tachypnea Tachypnea Blood Pressure 117/49 L Blood Pressure Mean 71 Pulse Ox 96 97 Oxygen Delivery Method Nasal Cannula Nasal Cannula Oxygen Flow Rate (L/min) 4 2 Positive well nourished and well developed Constitutional Narrative: Patient has an overall cushingoid appearance. 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 General Appearance ED: well developed HEENT Reports moist mucous membranes Eyes EOMs intact bilaterally Neck no lymphadenopathy and no JVD Resp Resp Narrative: There is some mild end expiratory wheezing. No rhonchi. No rales. Patient breathes quickly but when you talk to her you can get her to slow down and take nice even breaths. That does help her a lot. Cardio regular rate and regular rhythm GI non-tender and non-distended GI Narrative: No tenderness. There is an umbilical hernia but it is completely nontender. It is chronic per patient. Extremity normal to inspection General Extremety ED: Negative for edema or tenderness General Extremity: Negative for edema Neuro oriented x3 Psych mental status grossly normal Skin no wounds Rashes: no rashes MDM MDM MDM Narrative Medical decision making narrative: Patient CBC is overall unremarkable. Minimal elevation of white count decreasing hemoglobin. Electrolytes are unremarkable. Troponin is negative. BNP is essentially normal. Chest x-ray shows borderline cardiomegaly that is unchanged. No acute process. No infiltrate. No pneumothorax. Patient's breathing much better. Occasionally she gets anxious and increase her rate but when you talk to her it calms down. I also find out that she does not have her nebulizer solution at home. She has a prescription in the pharmacy but has not filled it. She does have inhalers but things are getting low. I will write for an albuterol here. We also discussed options of steroids. I will give her a one-time dose of Decadron. She states prednisone makes her very mean and she would like to try to avoid it. We discussed reasons to return. Lab Data Attestation: I reviewed the patient's lab results. Labs: Laboratory Results - last 24 hr 01/27/22 01/27/22 01/27/22 23:54 23:54 23:54 WBC 11.2 H RBC 3.99 L Hgb 10.9 L Hct 34.7 L MCV 87.0 MCH 27.3 MCHC 31.4 L RDW Std Deviation 49.7 H RDW Coeff of Malcom 15.7 H Plt Count 241 MPV 11.2 Immature Gran % (Auto) 0.500 Neut % (Auto) 79.7 H Lymph % (Auto) 12.3 L Hem[place]ill % (Auto) 5.5 Eos % (Auto) 1.5 Baso % (Auto) 0.5 Absolute Neuts (auto) 8.9 H Absolute Lymphs (auto) 1.38 Nucleated RBC % 0 Differential Comment SCANNED Platelet Estimate ADEQUATE Sodium 138 Potassium 3.5 Chloride 101 Carbon Dioxide 31.0 Anion Gap 6 BUN 8 Creatinine 0.98 Estim Creat Clear Calc 42.25 Est GFR (MDRD) Af Amer 72 Est GFR (MDRD) Non-Af 59 L BUN/Creatinine Ratio 8.1 L Glucose 163 H Calcium 9.6 Troponin I High Sens 12 B-Natriuretic Peptide 107.7 H Radiography Diagnostic Testing: Clinical Impression(s) from Imaging Studies Chest X-Ray 01/28/22 00:28 IMPRESSION: 1. Borderline cardiomegaly unchanged. 2. No acute cardiopulmonary abnormality. Electronically Signed: Raz Joe MD at 0:56 EDT , EKG Initial EKG: Comments: EKG done for dyspnea read by me shows sinus rhythm with some baseline variation. Overall rate of 83. No ventricular ectopy noted. Nonspecific ST and T wave changes mostly related to baseline variation. No sign of infarct or ischemia. WI interval, QRS duration and QTc are normal. QTc is toward the longer and at 472 ms. Discharge Plan Triage Chief Complaint: Shortness of Breath ED Provider: Sandeep Fong Dx/Rx/DC Orders Clinical Impression: Asthma exacerbation in COPD Instructions: ED COPD Flare Prescriptions: No Action (DME) pen needle, diabetic 32 gauge x 5/32 needle See Rx Instructions .ROUTE .MEDSUPPLY Qty: 50 Rx Instructions: As directed (DME) Handicap Placard See Rx Instructions .ROUTE .MEDSUPPLY Qty: 1 0RF Rx Instructions: As directed, length of time 3 years pantoprazole 40 mg tablet,delayed release (DR/EC) 40 mg PO DAILY Label Comments: take 1 tablet by mouth once daily insulin lispro [Humalog KwikPen Insulin] 100 unit/mL insulin pen 17 unit SC TID 90 Days Qty: 45.9 3RF Rx Instructions: Hold if glucose less than 130 mg/dl budesonide 1 mg/2 mL suspension for nebulization 1 mg inhalation BID Qty: 60 6RF losartan 25 mg tablet 25 mg PO DAILY Qty: 30 6RF insulin glargine [Basaglar KwikPen U-100 Insulin] 100 unit/mL (3 mL) insulin pen 36 unit subcut DAILY Rx Instructions: daily at bedtime isosorbide mononitrate 60 mg tablet extended release 24 hr 60 mg PO DAILY acetaminophen 500 MG tablet 500 mg PO QHS Rx Instructions: over the counter. no prescription required. nitroglycerin 0.4 mg tablet, sublingual 0.4 mg SUBLINGUAL Q5-15M PRN (Reason: Pain) (DME) Accu-Chek Aundrea Plus test strp Strip See Rx Instructions .ROUTE .MEDSUPPLY Qty: 100 8RF Rx Instructions: tid (DME) FreeStyle Emily 2 [place] Misc See Rx Instructions .ROUTE .MEDSUPPLY Qty: 1 0RF Rx Instructions: [place] directed [place] [place] FreeStyle Emily 2 Sensor Kit See Rx Instructions .ROUTE .MEDSUPPLY Qty: 2 12RF Rx Instructions: As directed metoprolol tartrate 25 mg tablet 12.5 mg PO BID Qty: 90 3RF Rx Instructions: citalopram 40 mg tablet 40 mg PO QHS Qty: 90 1RF ipratropium-albuterol 0.5 mg-3 mg(2.5 mg base)/3 mL solution for nebulization 3 ml INHALATION Q4H PRN PRN (Reason: SOB &/OR WHEEZING) Qty: 180 6RF clopidogrel 75 mg tablet 75 mg PO DAILY Qty: 90 3RF furosemide [Lasix] 20 mg tablet 20 mg PO DAILY Qty: 30 6RF bisacodyl [Dulcolax (bisacodyl)] 5 mg tablet,delayed release (DR/EC) 5 mg PO QHS PRN (Reason: constipation) 30 Days Qty: 30 3RF albuterol sulfate 90 mcg/actuation HFA aerosol inhaler 2 puff INHALATION Q6H PRN (Reason: shortness of breath or wheezing) Qty: 18 3RF risperidone 1 mg tablet 1 mg PO QHS Qty: 90 1RF atorvastatin 80 mg tablet 80 mg PO QHS Qty: 90 3RF alprazolam 0.25 mg tablet 0.25 mg PO QHS Qty: 30 0RF Primary Care Provider: Billy Madera Referrals: Billy Madera MD [Primary Care Provider] - 2 Days Disposition Disposition: Home, Self Care
[2022-01-27] MEDS: MethylPREDNISolone 125 MG/2 ML Vial IV (23:52)
[2022-01-27 23:53] VITALS: PULSE 84; RESP 22; RESP 34; O2SAT 96
[2022-01-27] MEDS: Ipratropium/Albuterol Sulfate 3 ML AMPUL.NEB INHALATION (23:53)
[2022-01-27] MEDS: Albuterol 2.5 MG/3 ML VIAL.NEB. INHALATION (23:53)
[2022-01-28 00:01] LABS: Absolute Lymphocyte Count 1.38 X10^3/uL (0.83-4.51); Absolute Neutrophil Count 8.9 X10^3/uL (2.0-7.7); Basophil# 0.06 X10^3/uL; Basophil% 0.5 % (0-1); Eosinophil# 0.17 X10^3/uL; Eosinophils% 1.5 % (0-5); Hematocrit 34.7 % (37-47); Hemoglobin 10.9 g/dL (12.0-15.0); Lymphocyte # 1.38 X10^3/ul (0.83-4.51); Lymphocyte % 12.3 % (19-41); Mean Corp Hgb Conc 31.4 g/dL (32-36); Mean Corpuscular Hgb 27.3 pg (27.0-32.0); Mean Platelet Vol. 11.2 fl (6.2-12.0); Monocyte# 0.62 X10^3/uL; Monocyte% 5.5 % (0-10); NRBC Flagged by Analyzer 0 % (0-5); Neutrophil # 8.91 X10^3/uL (2.7-7.7); Neutrophil % 79.7 % (47-70); POSITIVE COUNT YES; Platelet Count 241 K/mm3 (150-450); RBC Distribution Width CV 15.7 % (11.6-14.6); RBC Distribution Width SD 49.7 fl (35.1-43.9); Red Blood Count 3.99 M/mm3 (4.2-5.4); White Blood Count 11.2 K/mm3 (4.4-11.0)
[2022-01-28 00:05] LABS: Differential Indicated SCAN CRITERIA MET
--- NOTE | 2022-01-28 00:14 | CPS ---
x1 Albuterol given to pt. in ER as well
[2022-01-28 00:19] LABS: Anion Gap 6 (5-15); BUN 8 mg/dL (7-18); BUN/Creat Ratio 8.1 RATIO (10-20); Calcium,Total 9.6 mg/dL (8.5-10.1); Chloride 101 mmol/L (98-107); Creatinine, Serum 0.98 mg/dL (0.55-1.02); EST Glomerular Filtration Rate 59 mL/min (>60); Est Glom Filt Rate - Afr Amer 72 mL/min (>60); Estimated Creatinine Clearance 42.25 ml/min; Glucose 163 mg/dL (74-106); Potassium 3.5 mmol/L (3.5-5.1); Sodium Level 138 mmol/L (136-145); Troponin-I HS 12 pg/mL (3.0-54.0)
[2022-01-28 00:22] LABS: BNP,B-Type NATRIURETIC PEPTIDE 107.7 pg/mL (0-100); Differential Comment SCANNED; Platelet Estimate ADEQUATE (ADEQ)
--- NOTE | 2022-01-28 00:28 | RAD_ITS ---
EXAM: XR CHEST, 1 VIEW CLINICAL INDICATION: SOB TECHNIQUE: Frontal view of the chest. This report was created using [employer] report generation technology. COMPARISON: 01/20/2022. FINDINGS: LUNGS AND PLEURAL SPACES: Unremarkable. No consolidation or edema. No pneumothorax. No effusion. HEART: Borderline cardiomegaly unchanged. MEDIASTINUM: Central airways and mediastinal contour are unremarkable. BONES/JOINTS: Unremarkable. SOFT TISSUES: Unremarkable. RAD/Chest 1 View (Portable) IMPRESSION: 1. Borderline cardiomegaly unchanged. 2. No acute cardiopulmonary abnormality. Electronically Signed: Raz Joe MD at 0:56 EDT ,
[2022-01-28 00:32] VITALS: BP 117/49; PULSE 89; RESP 27; O2SAT 97
[2022-01-28 01:24] VITALS: BP 162/88; PULSE 85; RESP 20; O2SAT 95
--- NOTE | 2022-01-28 01:33 | ED.RN ---
[facility] CALLED FOR TRANSPORT AT 0130. ETA 20-30 MIN.
== END 2022-01-28 02:58 | disposition home or self-care (01) ==
PROVIDERS: Emergency Provider Emergency Medicine; PCP Internal Medicine; Visit Provider Emergency Medicine
DX: J45.901 Unspecified asthma with (acute) exacerbation (principal); J44.9 Chronic obstructive pulmonary disease, unspecified; I11.0 Hypertensive heart disease with heart failure; I50.9 Heart failure, unspecified; E11.9 Type 2 diabetes mellitus without complications; Z79.4 Long term (current) use of insulin; I25.10 Atherosclerotic heart disease of native coronary artery without angina pectoris; E78.5 Hyperlipidemia, unspecified; Z87.891 Personal history of nicotine dependence; F32.A Depression, unspecified; G47.33 Obstructive sleep apnea (adult) (pediatric); L40.9 Psoriasis, unspecified; Z87.01 Personal history of pneumonia (recurrent); Z79.899 Other long term (current) drug therapy; Z95.5 Presence of coronary angioplasty implant and graft
CPT/HCPCS: 71045; 80048; 83880; 84484; 85025; 93005; 94640; 96374; 99251; 99285; G0463

== ENCOUNTER 2022-03-14 22:11 | Emergency (ER) | payer MEDICARE, SELFPAY ==
[2021-11-03 12:08] VITALS: BMI 34.9
[2022-03-14 22:12] VITALS: BP 159/88; PULSE 82; RESP 20; TEMP 36.9; O2SAT 99; BMI 40.6
[2022-03-14 22:17] VITALS: O2SAT 98
--- NOTE | 2022-03-14 23:23 | EKG12_ITS ---
Test Reason : Blood Pressure : / mmHG Vent. Rate : 075 BPM Atrial Rate : 075 BPM P-R Int : 204 ms QRS Dur : 076 ms QT Int : 370 ms P-R-T Axes : 049 039 071 degrees QTc Int : 413 ms Normal sinus rhythm Low voltage QRS Confirmed by BANG MELVIN, ROSALIA ([id number]), food expeditor JAVIER COLBY ([id number]) on 03/16/2022 1:18:15 PM Referred By: Confirmed By:ROSALIA CUENCA MD
--- NOTE | 2022-03-14 23:23 | CT_ITS ---
STUDY: CT BRAIN WITHOUT CONTRAST REASON FOR EXAM: Female, 71 years old. headache RADIATION DOSAGE (If Supplied By Facility): CTDIvol = ( 44.99 ) mGy, DLP = ( 779.24 ) mGycm TECHNIQUE: Transaxial CT imaging of the brain was performed without administration of intravenous contrast material. Individualized dose optimization techniques were used for this CT. COMPARISON: 08/27/2020 FINDINGS: Normal soft tissue structures. Normal calvarium. There is mild cerebral atrophy with widening of the extra-axial spaces and ventricular dilatation. There are areas of decreased attenuation within the white matter tracts of the supratentorial brain, consistent with microvascular disease changes. Normal basal ganglia and thalami. Normal brainstem. There is mild cerebellar atrophy. There is no intracranial hemorrhage. There are no findings of an acute ischemic infarction. 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 CT/Brain/Head without Contrast IMPRESSION: Chronic involutional changes of the brain. Electronically Signed: Duglas Watkins DO at 0:22 EDT ,
--- NOTE | 2022-03-14 23:24 | EDS_ITS ---
HPI History of Present Illness Chief Complaint: Shortness of Breath Informant: patient Narrative Narrative: Presents by EMS from home due to worsening headache sore throat since yesterday. COPD, CHF chronic 4 L of oxygen. Reports increasing dyspnea. No chest pains no cough. No vomiting or diarrhea. Tylenol taken 8 PM headache now improving. Reports took her blood pressure systolic 202 therefore called EMS. History of hypertension. Denies fevers. She is COVID vaccinated with the booster no infections in the past. Denies sick contacts. PFSH [facility] Medical History Anemia Anxiety and depression Asthma Asthma with COPD Atherosclerotic heart disease of [place] coronary artery without angina pectoris Back pain Bilateral pneumonia CHF (congestive heart failure) Chronic respiratory failure Constipation COPD (chronic obstructive pulmonary disease) Depression Diabetes Former smoker Health care maintenance Heart disease Hepatitis History of constipation HLD (hyperlipidemia) Hypertension Lung disease On home oxygen therapy MARK (obstructive sleep apnea) Pneumonia Psoriasis Smoking greater than 40 pack years SOB (shortness of breath) Thyroid nodule Type 2 diabetes mellitus Home Medications blood sugar diagnostic (Accu-Chek Aundrea Plus test strips) #100 ea 11/05/20 [Rx Last Taken Unknown] Handicap Placard #1 ea 12/12/20 [Rx Last Taken Unknown] flash glucose scanning reader ([employer] Emily 2 [place]) #1 ea 01/31/21 [Rx Last Taken Unknown] metoprolol tartrate 25 mg tablet 12.5 mg PO BID #90 tabs 04/25/21 [Rx Last Taken 08/08/21] citalopram 40 mg tablet 40 mg PO QHS depression #90 tabs 07/23/21 [Rx Last Taken 08/08/21] insulin lispro 100 unit/mL subcutaneous pen (Humalog KwikPen (U-100) Insulin) 17 unit (0.17 mL) subcut TID diabetes 3 months #45.9 mL 08/19/21 [Rx Last Taken Unknown] clopidogrel 75 mg tablet 75 mg PO DAILY #90 tabs 10/06/21 [Rx Last Taken Unknown] insulin glargine 100 unit/mL (3 mL) subcutaneous pen (Basaglar KwikPen U-100 Insulin) 36 unit subcut DAILY diabetic managment 10/12/21 [History Last Taken Unknown] isosorbide mononitrate 60 mg tablet,extended release 24 hr 60 mg PO DAILY BP 10/12/21 [History Last Taken Unknown] acetaminophen 500 mg tablet 500 mg PO QHS 10/21/21 [History Last Taken Unknown] pantoprazole 40 mg tablet,delayed release 40 mg PO DAILY 10/28/21 [History Last Taken Unknown] losartan 25 mg tablet 25 mg PO DAILY #30 tabs 11/10/21 [Rx Last Taken Unknown] furosemide 20 mg tablet (Lasix) 20 mg PO DAILY #30 tabs 11/12/21 [Rx Last Taken Unknown] bisacodyl 5 mg tablet,delayed release (Dulcolax (bisacodyl)) 5 mg PO QHS PRN constipation 30 days #30 tabs 11/13/21 [Rx Last Taken Unknown] budesonide 1 mg/2 mL suspension for nebulization 1 mg (2 mL) inhalation BID #60 mL 11/28/21 [Rx Last Taken Unknown] risperidone 1 mg tablet 1 mg PO QHS anxiety #90 tabs 12/02/21 [Rx Last Taken Unknown] atorvastatin 80 mg tablet 80 mg PO QHS #90 tabs 12/10/21 [Rx Last Taken Unknown] nitroglycerin 0.4 mg sublingual tablet 0.4 mg sublingual Q5-15M PRN Pain 01/20/22 [History Last Taken Unknown] flash glucose sensor ([employer] Emily 2 Sensor kit) #2 ea 01/29/22 [Rx Last Taken Unknown] albuterol sulfate 90 mcg/actuation aerosol inhaler 2 puff inhalation Q6H PRN shortness of breath or wheezing #18 grams 02/11/22 [Rx Last Taken Unknown] ipratropium 0.5 mg-albuterol 3 mg (2.5 mg base)/3 mL nebulization soln 3 ml inhalation Q4H PRN PRN SOB &/OR WHEEZING #180 mL 02/11/22 [Rx Last Taken Unknown] pen needle, diabetic 32 gauge x #50 ea 02/11/22 [Rx Last Taken Unknown] alprazolam 0.25 mg tablet 0.25 mg PO QHS #30 tabs 03/05/22 [Rx Last Taken Unknown] Allergy/AdvReac Type Severity Reaction Status Date / Time amoxicillin [Amoxicillin] Allergy Intermediate Rash Verified 03/14/22 22:14 gabapentin [From Neurontin] Allergy Shortness Verified 03/14/22 22:14 of breath levofloxacin [From Levaquin] Allergy Hives Verified 03/14/22 22:14 pseudoephedrine HCl Allergy Shortness Verified 03/14/22 22:14 [From Sudafed] of breath red dye Allergy Hives Verified 03/14/22 22:14 prednisone AdvReac Severe mean mood Verified 03/14/22 22:14 codeine AdvReac HEADACHE Verified 03/14/22 22:14 Family History Brother Heart disease Mother Colon cancer Heart disease Surgical History History of cholecystectomy History of coronary artery stent placement History of left heart catheterization (LHC) (~09/23/20) Hx of CABG Stented coronary artery (12/28/18) Social History Smoking Status: Former smoker pack-years: 40 how long ago did patient quit smokin year ago alcohol intake: never substance use type: does not use caffeine: Yes Type: carbonated beverages and tea what type of physical activity do you participate in: none ROS ROS ED Constitutional Constitutional ED: Denies chills, fever(s) or sweats Eyes Eyes: Denies change in vision ENT ENT ED: Reports sore throat; Denies dysphagia Cardiovascular Cardiovascular: Denies chest pain, leg edema, palpitations or racing heartbeat Respiratory/Chest Respiratory/Chest: Reports dyspnea; Denies cough or dyspnea on exertion Gastrointestinal Gastrointestinal: Denies abdominal pain, diarrhea, nausea or vomiting Genitourinary Genitourinary ED: Denies dysuria, hematuria or urinary frequency Musculoskeletal Musculoskeletal: Denies back pain, extremity pain or neck pain Integumentary Denies rash or wounds Neurologic Neurologic: Reports headache(s); Denies paresthesias or weakness EXAM Physical Exam Const Vital Signs: 03/14/22 22:12 03/14/22 22:17 03/14/22 23:34 Temperature 98.4 F Temperature Source Oral Pulse Rate 82 Respiratory Rate 20 H Respiratory Effort Short of Breath Respiratory Depth Normal Respiratory Pattern Tachypnea Blood Pressure 159/88 H Blood Pressure Mean 111 Pulse Ox 99 Oxygen Delivery Method Nasal Cannula Nasal Cannula Room Air Oxygen Flow Rate (L/min) 4 4 4 03/15/22 00:33 03/15/22 01:42 Temperature Temperature Source Pulse Rate 70 67 Respiratory Rate 14 20 H Respiratory Effort Respiratory Depth Respiratory Pattern Blood Pressure 108/61 141/68 H Blood Pressure Mean 76 Pulse Ox 98 99 Oxygen Delivery Method Nasal Cannula Oxygen Flow Rate (L/min) 4 Positive well nourished and well developed Constitutional Narrative: Stable on 4 L nasal cannula no respiratory distress, nontoxic. General Appearance ED: well developed and NAD HEENT Reports moist mucous membranes HEENT Narrative: Upper dentures, no posterior pharyngeal erythema, airway patent. normocephalic and atraumatic Eyes PERRL, EOMs intact bilaterally and conjunctivae normal General Eye ED: Yes normal appearance of both eyes Neck no lymphadenopathy and supple Neck Narrative: No meningismus. General: Negative for tenderness Chest Wall Chest: Negative for tenderness Resp normal respiratory effort and normal air movement Effort and Inspection: symmetric chest movement; Negative for respiratory distress Cardio regular rate, regular rhythm and no murmurs Peripheral Pulses: pulses 2+ throughout GI normal to inspection, nondistended, normoactive bowel sounds and non-tender Palpation: Negative for guarding or rebound tenderness present Back/Spine no CVA tenderness and no thoracic nor lumbar tenderness Extremity normal to inspection General Extremety ED: Negative for edema or tenderness General Extremity: Negative for edema Neuro oriented x3, CN's II-XII intact bilaterally and no sensory deficits noted Sensorium / Orientation: awake and alert Skin no rashes or lesions noted and no wounds MDM MDM MDM Narrative Medical decision making narrative: Patient reported blood pressure at home systolic 2 to arrival blood pressure 159/88. She concerns for persistent headache that is new CT brain obtained negative. COVID testing negative. Chest x-ray 1 view reviewed by myself and read by radiology with her dyspnea shows no acute process. Labs are all stable. Sodium 132. Chronic anemia hemoglobin 11.7. She stable 4 L oxygen. Reevaluation headache resolved without treatment she is status post however at home. Patient discharged with outpatient follow-up. She will monitor her blood pressure. She will monitor her symptoms. Return precautions. All questions were answered. Lab Data Attestation: I reviewed the patient's lab results. Labs: Laboratory Results - last 24 hr 03/14/22 03/14/22 23:04 23:04 WBC 11.9 H RBC 4.16 L Hgb 11.7 L Hct 37.0 MCV 88.9 MCH 28.1 MCHC 31.6 L RDW Std Deviation 43.3 RDW Coeff of [place] 13.3 Plt Count 273 MPV 10.9 Immature Gran % (Auto) 0.400 Neut % (Auto) 74.5 H Lymph % (Auto) 16.9 L Jackson % (Auto) 5.6 Eos % (Auto) 1.9 Baso % (Auto) 0.7 Absolute Neuts (auto) 8.9 H Absolute Lymphs (auto) 2.01 Nucleated RBC % 0 Sodium 132 L Potassium 3.9 Chloride 96 L Carbon Dioxide 28.0 Anion Gap 8 BUN 14 Creatinine 0.94 Estim Creat Clear Calc 44.04 Est GFR (MDRD) Af Amer 76 Est GFR (MDRD) Non-Af 63 BUN/Creatinine Ratio 14.9 Glucose 197 H Calcium 9.3 Troponin I High Sens 11 Radiography Chest X-Ray - ED: 1 View and Read by ED Physician Diagnostic Testing: Clinical Impression(s) from Imaging Studies Brain CT 03/14/22 23:23 IMPRESSION: Chronic involutional changes of the brain. Electronically Signed: Duglas McduffieDO clara at 0:22 EDT Reading Location ID and State: [address] [place] [address] Tel , Service support , Chest X-Ray 03/14/22 23:45 IMPRESSION: No acute cardiopulmonary disease. Electronically Signed: Duglas McduffieDO clara at 0:23 EDT Reading Location ID and State: [facility] / [place] Tel , Service support , EKG Initial EKG: Attestation: I personally reviewed and interpreted this EKG as follows: Comments: Sinus rate of 75, no ST or T wave changes artifact noted. Discharge Plan Triage Chief Complaint: Shortness of Breath ED Provider: Jose Luis Goodwin Dx/Rx/DC Orders Clinical Impression: Headache, Elevated blood pressure reading with diagnosis of hypertension, Acute dyspnea, History of COPD, Hyponatremia, Anemia Instructions: Controlling High Blood Pressure, Self-Care for Headaches Prescriptions: No Action (DME) Handicap Placard See Rx Instructions .ROUTE .MEDSUPPLY Qty: 1 0RF Rx Instructions: As directed, length of time 3 years pantoprazole 40 mg tablet,delayed release (DR/EC) 40 mg PO DAILY Label Comments: take 1 tablet by mouth once daily insulin lispro [Humalog KwikPen Insulin] 100 unit/mL insulin pen 17 unit SC TID 90 Days Qty: 45.9 3RF Rx Instructions: Hold if glucose less than 130 mg/dl budesonide 1 mg/2 mL suspension for nebulization 1 mg inhalation BID Qty: 60 6RF losartan 25 mg tablet 25 mg PO DAILY Qty: 30 6RF insulin glargine [Basaglar KwikPen U-100 Insulin] 100 unit/mL (3 mL) insulin pen 36 unit subcut DAILY Rx Instructions: daily at bedtime isosorbide mononitrate 60 mg tablet extended release 24 hr 60 mg PO DAILY acetaminophen 500 MG tablet 500 mg PO QHS Rx Instructions: over the counter. no prescription required. nitroglycerin 0.4 mg tablet, sublingual 0.4 mg SUBLINGUAL Q5-15M PRN (Reason: Pain) (DME) Accu-Chek Aundrea Plus test strp Strip See Rx Instructions .ROUTE .MEDSUPPLY Qty: 100 8RF Rx Instructions: tid (DME) FreeStyle Emily 2 [place] Misc See Rx Instructions .ROUTE .MEDSUPPLY Qty: 1 0RF Rx Instructions: As directed metoprolol tartrate 25 mg tablet 12.5 mg PO BID Qty: 90 3RF Rx Instructions: citalopram 40 mg tablet 40 mg PO QHS Qty: 90 1RF clopidogrel 75 mg tablet 75 mg PO DAILY Qty: 90 3RF furosemide [Lasix] 20 mg tablet 20 mg PO DAILY Qty: 30 6RF bisacodyl [Dulcolax (bisacodyl)] 5 mg tablet,delayed release (DR/EC) 5 mg PO QHS PRN (Reason: constipation) 30 Days Qty: 30 3RF risperidone 1 mg tablet 1 mg PO QHS Qty: 90 1RF atorvastatin 80 mg tablet 80 mg PO QHS Qty: 90 3RF (DME) FreeStyle Emily 2 Sensor Kit See Rx Instructions .ROUTE .MEDSUPPLY Qty: 2 3RF Rx Instructions: As directed albuterol sulfate 90 mcg/actuation HFA aerosol inhaler 2 puff INHALATION Q6H PRN (Reason: shortness of breath or wheezing) Qty: 18 3RF ipratropium-albuterol 0.5 mg-3 mg(2.5 mg base)/3 mL solution for nebulization 3 ml INHALATION Q4H PRN PRN (Reason: SOB &/OR WHEEZING) Qty: 180 6RF (DME) pen needle, diabetic 32 gauge x 5/32 needle See Rx Instructions .ROUTE .MEDSUPPLY Qty: 50 0RF Rx Instructions: 4x/day alprazolam 0.25 mg tablet 0.25 mg PO QHS Qty: 30 0RF Primary Care Provider: Billy Madera Referrals: Billy Madera MD [Primary Care Provider] - 3-5 Days Activity Restrictions/Additional Instructions: COVID-negative. CT head clear. Chest x-ray negative. Labs are all stable. Monitor symptoms continue Tylenol as needed. Follow-up with your doctor. Blood pressure improved without treatment in the ED. Disposition Disposition: Home, Self Care Discharge Date/Time: 03/15/22 01:45
[2022-03-14 23:35] LABS: Absolute Lymphocyte Count 2.01 X10^3/uL (0.83-4.51); Absolute Neutrophil Count 8.9 X10^3/uL (2.0-7.7); Basophil# 0.08 X10^3/uL; Basophil% 0.7 % (0-1); Eosinophil# 0.23 X10^3/uL; Eosinophils% 1.9 % (0-5); Hemoglobin 11.7 g/dL (12.0-15.0); Lymphocyte # 2.01 X10^3/ul (0.83-4.51); Lymphocyte % 16.9 % (19-41); Mean Corp Hgb Conc 31.6 g/dL (32-36); Mean Corpuscular Hgb 28.1 pg (27.0-32.0); Mean Corpuscular Volume 88.9 fL (81-99); Mean Platelet Vol. 10.9 fl (6.2-12.0); Monocyte# 0.67 X10^3/uL; Monocyte% 5.6 % (0-10); NRBC Flagged by Analyzer 0 % (0-5); Neutrophil # 8.85 X10^3/uL (2.7-7.7); Neutrophil % 74.5 % (47-70); Platelet Count 273 K/mm3 (150-450); RBC Distribution Width CV 13.3 % (11.6-14.6); RBC Distribution Width SD 43.3 fl (35.1-43.9); Red Blood Count 4.16 M/mm3 (4.2-5.4); White Blood Count 11.9 K/mm3 (4.4-11.0)
--- NOTE | 2022-03-14 23:45 | RAD_ITS ---
STUDY: X-RAY CHEST REASON FOR EXAM: Female, 71 years old. sob TECHNIQUE: Single AP portable view of the chest. COMPARISON: 12/19/2021 FINDINGS: There is hyperinflation of the lungs consistent with chronic obstructive lung disease (COPD). Lungs are clear. There is no demonstrated pleural abnormality. Normal size heart. Normal mediastinum and wallace. Normal visualized pulmonary arteries. Normal visualized aortic arch and descending thoracic aorta. Normal visualized thoracic spine. Normal visualized ribs, clavicles, and shoulders. There is no demonstrated abnormality of the visualized soft tissue structures of the upper abdomen. RAD/Chest 1 View (Portable) IMPRESSION: No acute cardiopulmonary disease. Electronically Signed: Duglas Watkins DO at 0:23 EDT ,
[2022-03-14 23:55] LABS: Anion Gap 8 (5-15); BUN 14 mg/dL (7-18); BUN/Creat Ratio 14.9 RATIO (10-20); Calcium,Total 9.3 mg/dL (8.5-10.1); Chloride 96 mmol/L (98-107); Creatinine, Serum 0.94 mg/dL (0.55-1.02); EST Glomerular Filtration Rate 63 mL/min (>60); Est Glom Filt Rate - Afr Amer 76 mL/min (>60); Estimated Creatinine Clearance 44.04 ml/min; Glucose 197 mg/dL (74-106); Potassium 3.9 mmol/L (3.5-5.1); Sodium Level 132 mmol/L (136-145); Troponin-I HS 11 pg/mL (3.0-54.0)
[2022-03-15 00:33] VITALS: BP 108/61; PULSE 70; RESP 14; O2SAT 98
--- NOTE | 2022-03-15 01:32 | NURSING ---
PHYSIC[facility]RIS BENAVIDES FOR WHEELCHAIR VAN 4-5 HOURS. PT UPDATED.
[2022-03-15 01:42] VITALS: BP 141/68; PULSE 67; RESP 20; O2SAT 99
== END 2022-03-15 01:45 | disposition home or self-care (01) ==
PROVIDERS: Emergency Provider Emergency Medicine; PCP Internal Medicine; Visit Provider Emergency Medicine
DX: I11.0 Hypertensive heart disease with heart failure (principal); J44.9 Chronic obstructive pulmonary disease, unspecified; I50.9 Heart failure, unspecified; E11.9 Type 2 diabetes mellitus without complications; Z79.4 Long term (current) use of insulin; R06.02 Shortness of breath; E78.5 Hyperlipidemia, unspecified; I25.10 Atherosclerotic heart disease of native coronary artery without angina pectoris; R51.9 Headache, unspecified; E87.1 Hypo-osmolality and hyponatremia; D64.9 Anemia, unspecified; F41.9 Anxiety disorder, unspecified; F32.A Depression, unspecified; Z79.899 Other long term (current) drug therapy; Z87.891 Personal history of nicotine dependence; Z20.822 Contact with and (suspected) exposure to COVID-19
CPT/HCPCS: 70450; 71045; 80048; 84484; 85025; 87811; 93005; 99285; A4216

== ENCOUNTER 2022-05-21 16:58 | Emergency (ER) | payer MEDICARE, SELFPAY ==
[2021-11-03 12:08] VITALS: BMI 34.9
[2022-05-21 16:59] VITALS: BP 151/54; PULSE 70; RESP 24; TEMP 35.7; O2SAT 100; BMI 40.2
--- NOTE | 2022-05-21 17:34 | RAD_ITS ---
INDICATION: SOB EXAMINATION/TECHNIQUE: X-RAY - XR Chest 1 View COMPARISON: 03/14/2022 FINDINGS: LIFE-SUPPORT AND LINES: 1. None HEART AND VESSELS: Cardiac size is normal, no evidence congestive failure. LUNGS AND PLEURAL SPACES: Pleural parenchymal scar and atelectasis at the lung bases without focal infiltrate or consolidation. Findings are stable. No pulmonary mass is noted. MEDIASTINUM AND HILAR REGIONS: No masses adenopathy noted. No areas of calcification. Visualized upper airway is normal in position. BONY ELEMENTS: No acute bony changes noted. Chronic deformity of multiple RIGHT ribs consistent with healed fracture. RAD/Chest 1 View (Portable) IMPRESSION: 1. Stable exam. 2. Pleural-parenchymal scar and atelectasis of lung bases greater on LEFT than RIGHT. 3. No evidence congestive failure. Electronically Signed: Max Garcia MD at 17:48 EDT ,
[2022-05-21 18:11] LABS: Absolute Neutrophil Count 9.2 X10^3/uL (2.0-7.7); Basophil# 0.06 X10^3/uL; Basophil% 0.5 % (0-1); Eosinophil# 0.21 X10^3/uL; Eosinophils% 1.8 % (0-5); Hematocrit 35.4 % (37-47); Hemoglobin 11.5 g/dL (12.0-15.0); Lymphocyte % 13.6 % (19-41); Mean Corp Hgb Conc 32.5 g/dL (32-36); Mean Corpuscular Hgb 29.3 pg (27.0-32.0); Mean Corpuscular Volume 90.1 fL (81-99); Mean Platelet Vol. 10.9 fl (6.2-12.0); Monocyte# 0.68 X10^3/uL; Monocyte% 5.8 % (0-10); NRBC Flagged by Analyzer 0 % (0-5); Neutrophil # 9.17 X10^3/uL (2.7-7.7); Neutrophil % 77.8 % (47-70); Platelet Count 289 K/mm3 (150-450); RBC Distribution Width CV 12.4 % (11.6-14.6); RBC Distribution Width SD 40.2 fl (35.1-43.9); Red Blood Count 3.93 M/mm3 (4.2-5.4); White Blood Count 11.8 K/mm3 (4.4-11.0)
[2022-05-21 18:27] LABS: Anion Gap 9 (5-15); BUN 12 mg/dL (7-18); BUN/Creat Ratio 12.8 RATIO (10-20); Calcium,Total 9.3 mg/dL (8.5-10.1); Chloride 94 mmol/L (98-107); Creatinine, Serum 0.94 mg/dL (0.55-1.02); EST Glomerular Filtration Rate 63 mL/min (>60); Est Glom Filt Rate - Afr Amer 76 mL/min (>60); Estimated Creatinine Clearance 44.04 ml/min; Glucose 317 mg/dL (74-106); Potassium 3.8 mmol/L (3.5-5.1); Sodium Level 132 mmol/L (136-145)
[2022-05-21 19:58] VITALS: BP 150/57; PULSE 67; RESP 20; O2SAT 99
[2022-05-21 20:42] VITALS: O2SAT 99
--- NOTE | 2022-05-21 22:10 | ED.RN ---
awaiting physician's ambulance
--- NOTE | 2022-05-21 23:09 | EDS_ITS ---
HPI History of Present Illness Chief Complaint: Shortness of Breath Narrative Narrative: 8-year-old female with shortness of breath today. She has a history of CHF and COPD. She states she was feeling significantly short of breath earlier the day and felt like she was going to vomit. This has resolved. She also states that she was breathing so heavy she fainted. She called EMS to come help her up and she has been up and ambulating since then without any difficulty. She has not a fever, chills. She denies chest pain. She does admit to some mild constipation. She does not have any abdominal pain. No urinary complaints. [facility] Medical History Anemia Anxiety and depression Asthma Asthma with COPD Atherosclerotic heart disease of [place] coronary artery without angina pectoris Back pain Bilateral pneumonia CHF (congestive heart failure) Chronic respiratory failure Constipation COPD (chronic obstructive pulmonary disease) Depression Diabetes Former smoker Health care maintenance Heart disease Hepatitis History of constipation HLD (hyperlipidemia) Hypertension Lung disease On home oxygen therapy MARK (obstructive sleep apnea) Pneumonia Psoriasis Smoking greater than 40 pack years SOB (shortness of breath) Thyroid nodule Type 2 diabetes mellitus Home Medications blood sugar diagnostic (Accu-Chek Aundrea Plus test strips) #100 ea 11/05/20 [Rx Last Taken Unknown] Handicap Placard #1 ea 12/12/20 [Rx Last Taken Unknown] flash glucose scanning reader (PolySuite Emily 2 [place]) #1 ea 01/31/21 [Rx Last Taken Unknown] citalopram 40 mg tablet 40 mg PO QHS depression #90 tabs 07/23/21 [Rx Last Taken 08/08/21] insulin lispro 100 unit/mL subcutaneous pen (Humalog KwikPen (U-100) Insulin) 17 unit (0.17 mL) subcut TID diabetes 3 months #45.9 mL 08/19/21 [Rx Last Taken Unknown] clopidogrel 75 mg tablet 75 mg PO DAILY #90 tabs 10/06/21 [Rx Last Taken Unknown] insulin glargine 100 unit/mL (3 mL) subcutaneous pen (Basaglar KwikPen U-100 Insulin) 36 unit subcut DAILY diabetic managment 10/12/21 [History Last Taken Unknown] isosorbide mononitrate 60 mg tablet,extended release 24 hr 60 mg PO DAILY BP 10/12/21 [History Last Taken Unknown] acetaminophen 500 mg tablet 500 mg PO QHS 10/21/21 [History Last Taken Unknown] furosemide 20 mg tablet (Lasix) 20 mg PO DAILY #30 tabs 11/12/21 [Rx Last Taken Unknown] bisacodyl 5 mg tablet,delayed release (Dulcolax (bisacodyl)) 5 mg PO QHS PRN constipation 30 days #30 tabs 11/13/21 [Rx Last Taken Unknown] budesonide 1 mg/2 mL suspension for nebulization 1 mg (2 mL) inhalation BID #60 mL 11/28/21 [Rx Last Taken Unknown] risperidone 1 mg tablet 1 mg PO QHS anxiety #90 tabs 12/02/21 [Rx Last Taken Unknown] atorvastatin 80 mg tablet 80 mg PO QHS #90 tabs 12/10/21 [Rx Last Taken Unknown] nitroglycerin 0.4 mg sublingual tablet 0.4 mg sublingual Q5-15M PRN Pain 01/20/22 [History Last Taken Unknown] flash glucose sensor (PolySuite Emily 2 Sensor kit) #2 ea 01/29/22 [Rx Last Taken Unknown] ipratropium 0.5 mg-albuterol 3 mg (2.5 mg base)/3 mL nebulization soln 3 ml inhalation Q4H PRN PRN SOB &/OR WHEEZING #180 mL 02/11/22 [Rx Last Taken Unkn own] pen needle, diabetic 32 gauge x 32 #50 ea 02/11/22 [Rx Last Taken Unknown] pantoprazole 40 mg tablet,delayed release 40 mg PO DAILY #90 tabs 04/24/22 [Rx Last Taken Unknown] tizanidine 2 mg tablet 2 mg PO HS PRN muscle spasticity #30 tabs 04/24/22 [Rx Last Taken Unknown] metoprolol tartrate 25 mg tablet 12.5 mg PO BID #90 tabs 05/04/22 [Rx Last Taken Unknown] albuterol sulfate 90 mcg/actuation aerosol inhaler 2 puff inhalation Q6H PRN shortness of breath or wheezing #18 grams 05/08/22 [Rx Last Taken Unknown] losartan 25 mg tablet 25 mg PO DAILY #30 tabs 05/13/22 [Rx Last Taken Unknown] alprazolam 0.25 mg tablet 0.25 mg PO QHS #30 tabs 05/15/22 [Rx Last Taken Unknown] Allergy/AdvReac Type Severity Reaction Status Date / Time amoxicillin [Amoxicillin] Allergy Intermediate Rash Verified 05/21/22 16:59 gabapentin [From Neurontin] Allergy Shortness Verified 05/21/22 16:59 of breath levofloxacin [From Levaquin] Allergy Hives Verified 05/21/22 16:59 pseudoephedrine HCl Allergy Shortness Verified 05/21/22 16:59 [From Sudafed] of breath red dye Allergy Hives Verified 05/21/22 16:59 prednisone AdvReac Severe mean mood Verified 05/21/22 16:59 codeine AdvReac HEADACHE Verified 05/21/22 16:59 Family History Brother Heart disease Mother Colon cancer Heart disease Surgical History History of cholecystectomy History of coronary artery stent placement History of left heart catheterization (LHC) (~09/23/20) Hx of CABG Stented coronary artery (12/28/18) Social History Smoking Status: Former smoker pack-years: 40 how long ago did patient quit smokin year ago alcohol intake: never substance use type: does not use caffeine: Yes Type: carbonated beverages and tea what type of physical activity do you participate in: none ROS ROS ED Constitutional Constitutional ED: Denies chills or fever(s) Eyes Eyes: Denies change in vision ENT ENT ED: Denies rhinorrhea or sore throat Cardiovascular Cardiovascular: Denies chest pain or palpitations Respiratory/Chest Respiratory/Chest: Reports dyspnea and dyspnea on exertion Gastrointestinal Gastrointestinal: Denies abdominal pain or constipation Genitourinary Genitourinary ED: Denies dysuria or hematuria Musculoskeletal Musculoskeletal: Denies arthralgias or back pain Integumentary Denies abscess or Abrasions Neurologic Neurologic: Denies headache(s) Psychiatric Psychiatric: Denies anxiety or depression EXAM Physical Exam Const Vital Signs: 05/21/22 16:59 05/21/22 19:58 05/21/22 20:42 Temperature 96.2 F L Temperature Source Temporal Pulse Rate 70 67 Respiratory Rate 24 H 20 H Respiratory Depth Normal Respiratory Pattern Normal Blood Pressure 151/54 H 150/57 H Blood Pressure Mean 86 88 Pulse Ox 100 99 Oxygen Delivery Method Nasal Cannula Nasal Cannula Nasal Cannula Oxygen Flow Rate (L/min) 4 4 4 Positive well nourished and obese General Appearance ED: NAD; Negative for pallor Nutritional Appearance: obese HEENT Reports moist mucous membranes atraumatic Eyes PERRL and EOMs intact bilaterally Resp normal respiratory effort and clear to auscultation bilaterally Resp Narrative: No accessory muscle use. Patient speaking in full sentences while chewing gum Auscultation: Negative for rales, rhonchi or wheezes GI non-tender and non-distended Auscultation: normoactive bowel sounds Neuro oriented x3 and CN's II-XII intact bilaterally Sensorium / Orientation: alert Psych mental status grossly normal Skin no wounds General Skin Exam: Negative for jaundice or pallor MDM MDM MDM Narrative Medical decision making narrative: Patient presenting with shortness of breath which resolved. She is now speaking in full sentences and chewing gum and states she does not have any symptoms. He states that while ambulating earlier she became so short of breath that she thinks she might of fainted. She denies hitting her head. She called EMS to help her get up because she was too weak but then after getting up she was able to ambulate around the house without any difficulty. She is not had any chest pain. She is not short of breath anymore. No fevers, chills, cough. On examination her vital signs are stable and she is afebrile. Lungs are clear to auscultation. She is on her baseline oxygen of 4 L nasal cannula. Hemoglobin at baseline 11.5. Hemoglobin Stable. White blood cell count 11.8. BUN/creatinine normal. Glucose slightly elevated at 317 without anion gap. Sodium slightly low at 132. Chest x-ray obtained and on my interpretation shows no acute cardiopulmonary process and the radiologist agree. Patient feeling well and normal vital signs and normal lab work I think she is okay for discharge. Impression: 1. Dyspnea 2. Weakness resolved Lab Data Attestation: I reviewed the patient's lab results. Labs: Laboratory Results - last 24 hr 05/21/22 05/21/22 18:00 18:00 WBC 11.8 H RBC 3.93 L Hgb 11.5 L Hct 35.4 L MCV 90.1 MCH 29.3 MCHC 32.5 RDW Std Deviation 40.2 RDW Coeff of [place] 12.4 Plt Count 289 MPV 10.9 Immature Gran % (Auto) 0.500 Neut % (Auto) 77.8 H Lymph % (Auto) 13.[address] % (Auto) 5.8 Eos % (Auto) 1.8 Baso % (Auto) 0.5 Absolute Neuts (auto) 9.2 H Absolute Lymphs (auto) 1.60 Nucleated RBC % 0 Sodium 132 L Potassium 3.8 Chloride 94 L Carbon Dioxide 29.0 Anion Gap 9 BUN 12 Creatinine 0.94 Estim Creat Clear Calc 44.04 Est GFR (MDRD) Af Amer 76 Est GFR (MDRD) Non-Af 63 BUN/Creatinine Ratio 12.8 Glucose 317 H Calcium 9.3 Radiography Diagnostic Testing: Clinical Impression(s) from Imaging Studies Chest X-Ray 05/21/22 17:34 IMPRESSION: 1. Stable exam. 2. Pleural-parenchymal scar and atelectasis of lung bases greater on LEFT than RIGHT. 3. No evidence congestive failure. Electronically Signed: Max Garcia MD at 17:48 EDT , Discharge Plan Triage Chief Complaint: Shortness of Breath ED Provider: Jose Gonzalez Dx/Rx/DC Orders Instructions: ED Dyspnea, ED Fainting, Uncertain Cause Prescriptions: No Action (DME) Handicap Placard See Rx Instructions .ROUTE .MEDSUPPLY Qty: 1 0RF Rx Instructions: As directed, length of time 3 years insulin lispro [Humalog KwikPen Insulin] 100 unit/mL insulin pen 17 unit SC TID 90 Days Qty: 45.9 3RF Rx Instructions: Hold if glucose less than 130 mg/dl budesonide 1 mg/2 mL suspension for nebulization 1 mg inhalation BID Qty: 60 6RF tizanidine 2 mg tablet 2 mg PO HS PRN (Reason: muscle spasticity) Qty: 30 0RF pantoprazole 40 mg tablet,delayed release (DR/EC) 40 mg PO DAILY Qty: 90 1RF insulin glargine [Basaglar KwikPen U-100 Insulin] 100 unit/mL (3 mL) insulin pen 36 unit subcut DAILY Rx Instructions: daily at bedtime isosorbide mononitrate 60 mg tablet extended release 24 hr 60 mg PO DAILY acetaminophen 500 MG tablet 500 mg PO QHS Rx Instructions: over the counter. no prescription required. nitroglycerin 0.4 mg tablet, sublingual 0.4 mg SUBLINGUAL Q5-15M PRN (Reason: Pain) (DME) Accu-Chek Aundrea Plus test strp Strip See Rx Instructions .ROUTE .MEDSUPPLY Qty: 100 8RF Rx Instructions: tid (DME) FreeStyle Emily 2 [place] Misc See Rx Instructions .ROUTE .MEDSUPPLY Qty: 1 0RF Rx Instructions: As directed citalopram 40 mg tablet 40 mg PO QHS Qty: 90 1RF clopidogrel 75 mg tablet 75 mg PO DAILY Qty: 90 3RF furosemide [Lasix] 20 mg tablet 20 mg PO DAILY Qty: 30 6RF bisacodyl [Dulcolax (bisacodyl)] 5 mg tablet,delayed release (DR/EC) 5 mg PO QHS PRN (Reason: constipation) 30 Days Qty: 30 3RF risperidone 1 mg tablet 1 mg PO QHS Qty: 90 1RF atorvastatin 80 mg tablet 80 mg PO QHS Qty: 90 3RF (DME) FreeStyle Emily 2 Sensor Kit See Rx Instructions .ROUTE .MEDSUPPLY Qty: 2 3RF Rx Instructions: As directed ipratropium-albuterol 0.5 mg-3 mg(2.5 mg base)/3 mL solution for nebulization 3 ml INHALATION Q4H PRN PRN (Reason: SOB &/OR WHEEZING) Qty: 180 6RF (DME) pen needle, diabetic 32 gauge x 5/32 needle See Rx Instructions .ROUTE .MEDSUPPLY Qty: 50 0RF Rx Instructions: 4x/day metoprolol tartrate 25 mg tablet 12.5 mg PO BID Qty: 90 3RF Rx Instructions: albuterol sulfate 90 mcg/actuation HFA aerosol inhaler 2 puff INHALATION Q6H PRN (Reason: shortness of breath or wheezing) Qty: 18 3RF losartan 25 mg tablet 25 mg PO DAILY Qty: 30 11RF alprazolam 0.25 mg tablet 0.25 mg PO QHS Qty: 30 0RF Primary Care Provider: Billy Madera Referrals: Billy Madera MD [Primary Care Provider] - Disposition Disposition: Home, Self Care Discharge Date/Time: 05/21/22 22:10
== END 2022-05-21 22:10 | disposition home or self-care (01) ==
PROVIDERS: Emergency Provider Student in an Organized Health Care Education/Training Program; PCP Internal Medicine; Visit Provider Student in an Organized Health Care Education/Training Program
DX: R06.02 Shortness of breath (principal); J44.9 Chronic obstructive pulmonary disease, unspecified; I11.0 Hypertensive heart disease with heart failure; I50.9 Heart failure, unspecified; E11.9 Type 2 diabetes mellitus without complications; E78.5 Hyperlipidemia, unspecified; I25.10 Atherosclerotic heart disease of native coronary artery without angina pectoris; E66.9 Obesity, unspecified; Z87.891 Personal history of nicotine dependence
CPT/HCPCS: 71045; 80048; 85025; 99284; A4216

== ENCOUNTER 2022-07-15 18:54 | Emergency (ER) | payer MEDICARE, SELFPAY ==
[2021-11-03 12:08] VITALS: BMI 34.9
[2022-07-15 18:57] VITALS: BP 187/74; PULSE 107; RESP 18; TEMP 36.6; O2SAT 98; BMI 36.6
[2022-07-15 19:43] VITALS: BP 153/59; PULSE 78; RESP 20; O2SAT 99
[2022-07-15 20:00] VITALS: BP 117/55; PULSE 78; RESP 28; O2SAT 97
[2022-07-15 20:05] VITALS: O2SAT 96
--- NOTE | 2022-07-15 20:05 | EKG12_ITS ---
Test Reason : CP Blood Pressure : / mmHG Vent. Rate : 085 BPM Atrial Rate : 085 BPM P-R Int : 150 ms QRS Dur : 080 ms QT Int : 372 ms P-R-T Axes : 037 004 062 degrees QTc Int : 442 ms Normal sinus rhythm Normal ECG Confirmed by RADHA MELVIN, ANABELLE ([id number]), brands editor JAVIER COLBY ([id number]) on 07/21/2022 10:33:25 AM Referred By: SONNY Confirmed By:MARKUS GARCIA MD
--- NOTE | 2022-07-15 20:06 | EDS_ITS ---
HPI History of Present Illness Chief Complaint: Chest Pain Informant: patient Narrative Narrative: Presenting with chest heaviness 2 hours prior to arrival. No recent ill cough. History of COPD on chronic 4 L. History of coronary disease with [address] Lozano. Last stent was a year ago she is on aspirin and Plavix took her medications today. History of hypertension diabetes hyperlipidemia. No recent travel or surgeries. Symptoms down to 4. 1 week sore throat left ear pain. No fevers. CVD Risk Factors: Positive for Hypertension, Diabetes and Hypercholesterolemia [facility] Medical History Anemia Anxiety and depression Asthma Asthma with COPD Atherosclerotic heart disease of [place] coronary artery without angina pectoris Back pain Bilateral pneumonia CHF (congestive heart failure) Chronic back pain Chronic respiratory failure Constipation COPD (chronic obstructive pulmonary disease) Depression Diabetes Flu vaccine need Former smoker Health care maintenance Heart disease Hepatitis History of constipation HLD (hyperlipidemia) Hypertension Lung disease On home oxygen therapy MARK (obstructive sleep apnea) Pneumonia Psoriasis Smoking greater than 40 pack years SOB (shortness of breath) Thyroid nodule Type 2 diabetes mellitus Home Medications blood sugar diagnostic (Accu-Chek Aundrea Plus test strips) #100 ea 11/05/20 [Rx Last Taken Unknown] Handicap Placard #1 ea 12/12/20 [Rx Last Taken Unknown] flash glucose scanning reader (BlikBook Emily 2 [place]) #1 ea 01/31/21 [Rx Last Taken Unknown] citalopram 40 mg tablet 40 mg PO QHS depression #90 tabs 07/23/21 [Rx Last Taken 08/08/21] insulin lispro 100 unit/mL subcutaneous pen (Humalog KwikPen (U-100) Insulin) 17 unit (0.17 mL) subcut TID diabetes 3 months #45.9 mL 08/19/21 [Rx Last Taken Unknown] clopidogrel 75 mg tablet 75 mg PO DAILY #90 tabs 10/06/21 [Rx Last Taken Unkn own] insulin glargine 100 unit/mL (3 mL) subcutaneous pen (Basaglar KwikPen U-100 Insulin) 36 unit subcut DAILY diabetic managment 10/12/21 [History Last Taken Unknown] isosorbide mononitrate 60 mg tablet,extended release 24 hr 60 mg PO DAILY BP 10/12/21 [History Last Taken Unknown] acetaminophen 500 mg tablet 500 mg PO QHS 10/21/21 [History Last Taken Unknown] bisacodyl 5 mg tablet,delayed release (Dulcolax (bisacodyl)) 5 mg PO QHS PRN constipation 30 days #30 tabs 11/13/21 [Rx Last Taken Unknown] budesonide 1 mg/2 mL suspension for nebulization 1 mg (2 mL) inhalation BID #60 mL 11/28/21 [Rx Last Taken Unknown] atorvastatin 80 mg tablet 80 mg PO QHS #90 tabs 12/10/21 [Rx Last Taken Unknown] nitroglycerin 0.4 mg sublingual tablet 0.4 mg sublingual Q5-15M PRN Pain 01/20/22 [History Last Taken Unknown] ipratropium 0.5 mg-albuterol 3 mg (2.5 mg base)/3 mL nebulization soln 3 ml inhalation Q4H PRN PRN SOB &/OR WHEEZING #180 mL 02/11/22 [Rx Last Taken Unknown] pen needle, diabetic 32 gauge x #50 ea 02/11/22 [Rx Last Taken Unknown] pantoprazole 40 mg tablet,delayed release 40 mg PO DAILY #90 tabs 04/24/22 [Rx Last Taken Unknown] tizanidine 2 mg tablet 2 mg PO HS PRN muscle spasticity #30 tabs 04/24/22 [Rx Last Taken Unknown] metoprolol tartrate 25 mg tablet 12.5 mg PO BID #90 tabs 05/04/22 [Rx Last Taken Unknown] albuterol sulfate 90 mcg/actuation aerosol inhaler 2 puff inhalation Q6H PRN shortness of breath or wheezing #18 grams 05/08/22 [Rx Last Taken Unknown] losartan 25 mg tablet 25 mg PO DAILY #30 tabs 05/13/22 [Rx Last Taken Unknown] furosemide 20 mg tablet (Lasix) 20 mg PO DAILY #30 tabs 06/01/22 [Rx Last Taken Unknown] risperidone 1 mg tablet 1 mg PO QHS anxiety #90 tabs 06/01/22 [Rx Last Taken Unknown] lidocaine 5 % topical patch 2 patch topical DAILY #30 ea 06/03/22 [Rx Last Taken Unknown] flash glucose sensor (FreeStyle Emily 2 Sensor kit) #2 ea 06/04/22 [Rx Last Taken Unknown] alprazolam 0.25 mg tablet 0.25 mg PO QHS #30 tabs 07/09/22 [Rx Last Taken Unkn own] Allergy/AdvReac Type Severity Reaction Status Date / Time amoxicillin [Amoxicillin] Allergy Intermediate Rash Verified 07/15/22 19:00 gabapentin [From Neurontin] Allergy Shortness Verified 07/15/22 19:00 of breath levofloxacin [From Levaquin] Allergy Hives Verified 07/15/22 19:00 pseudoephedrine HCl Allergy Shortness Verified 07/15/22 19:00 [From Sudafed] of breath red dye Allergy Hives Verified 07/15/22 19:00 prednisone AdvReac Severe mean mood Verified 07/15/22 19:00 codeine AdvReac HEADACHE Verified 07/15/22 19:00 Family History Brother Heart disease Mother Colon cancer Heart disease Surgical History History of cholecystectomy History of coronary artery stent placement History of left heart catheterization (LHC) (~09/23/20) Hx of CABG Stented coronary artery (12/28/18) Social History Smoking Status: Former smoker pack-years: 40 how long ago did patient quit smokin year ago alcohol intake: never substance use type: does not use caffeine: Yes Type: carbonated beverages and tea what type of physical activity do you participate in: none ROS ROS ED Constitutional Constitutional ED: Denies chills, fever(s) or sweats Eyes Eyes: Denies change in vision ENT ENT ED: Reports ear pain and sore throat; Denies dysphagia Cardiovascular Cardiovascular: Reports chest pain; Denies leg edema, palpitations or racing heartbeat Respiratory/Chest Respiratory/Chest: Denies cough, dyspnea or dyspnea on exertion Gastrointestinal Gastrointestinal: Denies abdominal pain, diarrhea, nausea or vomiting Genitourinary Genitourinary ED: Denies dysuria, hematuria or urinary frequency Musculoskeletal Musculoskeletal: Denies back pain, extremity pain or neck pain Integumentary Denies rash or wounds Neurologic Neurologic: Denies headache(s), paresthesias or weakness EXAM Physical Exam Const Vital Signs: 07/15/22 18:57 07/15/22 19:05 07/15/22 19:43 Temperature 97.8 F Temperature Source Temporal Pulse Rate 107 H 78 Respiratory Rate 18 20 H Respiratory Effort Normal Non-Labored Respiratory Pattern Tachypnea Blood Pressure 187/74 H 153/59 H Blood Pressure Mean 111 90 Pulse Ox 98 99 Oxygen Delivery Method Nasal Cannula Nasal Cannula Oxygen Flow Rate (L/min) 4 4 07/15/22 20:05 07/15/22 20:00 07/15/22 21:00 Temperature Temperature Source Pulse Rate 78 67 Respiratory Rate 28 H 15 Respiratory Effort Respiratory Pattern Blood Pressure 117/55 L 164/72 H Blood Pressure Mean 75 102 Pulse Ox 96 97 100 Oxygen Delivery Method Nasal Cannula Nasal Cannula Nasal Cannula Oxygen Flow Rate (L/min) 4 4 4 Positive well nourished and well developed Constitutional Narrative: 4 L nasal cannula, nontoxic General Appearance ED: well developed and NAD HEENT Reports TM's clear and moist mucous membranes HEENT Narrative: TMs normal bilaterally. No posterior pharyngeal erythema. No exudates. Airway patent. normocephalic and atraumatic Tympanic Membrane ED: Yes TM's clear Eyes PERRL, EOMs intact bilaterally and conjunctivae normal General Eye ED: Yes normal appearance of both eyes Neck no lymphadenopathy and supple General: Negative for tenderness Chest Wall Chest: Negative for tenderness Resp normal respiratory effort and normal air movement Effort and Inspection: symmetric chest movement; Negative for respiratory distress Cardio regular rate, regular rhythm and no murmurs Peripheral Pulses: pulses 2+ throughout GI normal to inspection, nondistended, normoactive bowel sounds and non-tender Palpation: Negative for guarding or rebound tenderness present Back/Spine no CVA tenderness and no thoracic nor lumbar tenderness Extremity normal to inspection General Extremety ED: Negative for edema or tenderness General Extremity: Negative for edema Neuro oriented x3 and no sensory deficits noted Sensorium / Orientation: awake and alert Skin no rashes or lesions noted and no wounds Heart Score History: Slightly/Non-Suspicious ECG: Normal Age: >/= 65 years Risk Factors: >/= 3 Risk Factors or History of CAD Troponin: </= Normal Limit Score: 4 MDM MDM MDM Narrative Medical decision making narrative: EKG no acute findings. Cardiac labs ordered for evaluation. 2054: 2 view chest x-ray reviewed by myself read by radiology shows no acute process. 2349: Cardiac work-up troponin x2 negative within the algorithm. Sodium 128. Asymptomatic from this. Symptom-free on reevaluation. Discharged with outpatient follow-up. Return precautions. All questions were answered. Lab Data Attestation: I reviewed the patient's lab results. Labs: Laboratory Results - last 24 hr 07/15/22 07/15/22 07/15/22 18:40 18:40 23:08 WBC 11.0 RBC 4.14 L Hgb 12.5 Hct 36.9 L MCV 89.1 MCH 30.2 MCHC 33.9 RDW Std Deviation 39.2 RDW Coeff of [place] 12.1 Plt Count 299 MPV 11.2 Immature Gran % (Auto) 0.500 Neut % (Auto) 77.9 H Lymph % (Auto) 13.1 L [place] % (Auto) 5.8 Eos % (Auto) 2.1 Baso % (Auto) 0.6 Absolute Neuts (auto) 8.6 H Absolute Lymphs (auto) 1.45 Nucleated RBC % 0 Sodium 128 L Potassium 4.2 Chloride 90 L Carbon Dioxide 33.0 H Anion Gap 5 BUN 15 Creatinine 0.92 Estim Creat Clear Calc 45.00 Est GFR (MDRD) Af Amer 78 Est GFR (MDRD) Non-Af 64 BUN/Creatinine Ratio 16.3 Glucose 209 H Calcium 10.1 Troponin I High Sens 8 13 Radiography Diagnostic Testing: Clinical Impression(s) from Imaging Studies Chest X-Ray 07/15/22 20:27 IMPRESSION: No radiographic evidence of acute cardiopulmonary disease. Electronically Signed: Josh Ramírez MD at 20:52 EST , EKG Initial EKG: Attestation: I personally reviewed and interpreted this EKG as follows: Comments: Sinus rate of 85, no ST or T wave changes. Discharge Plan Triage Chief Complaint: Chest Pain ED Provider: Jose Luis Goodwin Dx/Rx/DC Orders Clinical Impression: Chest pain, COPD (chronic obstructive pulmonary disease), Hyponatremia Instructions: ED Chest Pain, Uncertain Cause Prescriptions: No Action (DME) Handicap Placard See Rx Instructions .ROUTE .MEDSUPPLY Qty: 1 0RF Rx Instructions: As directed, length of time 3 years insulin lispro [Humalog KwikPen Insulin] 100 unit/mL insulin pen 17 unit SC TID 90 Days Qty: 45.9 3RF Rx Instructions: Hold if glucose less than 130 mg/dl budesonide 1 mg/2 mL suspension for nebulization 1 mg inhalation BID Qty: 60 6RF lidocaine 5 % adhesive patch,medicated 2 patch topical DAILY Qty: 30 3RF Rx Instructions: leave on most painful area for up to 12 hrs tizanidine 2 mg tablet 2 mg PO HS PRN (Reason: muscle spasticity) Qty: 30 0RF pantoprazole 40 mg tablet,delayed release (DR/EC) 40 mg PO DAILY Qty: 90 1RF insulin glargine [Basaglar KwikPen U-100 Insulin] 100 unit/mL (3 mL) insulin pen 36 unit subcut DAILY Rx Instructions: daily at bedtime isosorbide mononitrate 60 mg tablet extended release 24 hr 60 mg PO DAILY acetaminophen 500 MG tablet 500 mg PO QHS Rx Instructions: over the counter. no prescription required. nitroglycerin 0.4 mg tablet, sublingual 0.4 mg SUBLINGUAL Q5-15M PRN (Reason: Pain) (DME) Accu-Chek Aundrea Plus test strp Strip See Rx Instructions .ROUTE .MEDSUPPLY Qty: 100 8RF Rx Instructions: tid (DME) FreeStyle Emily 2 [place] Misc See Rx Instructions .ROUTE .MEDSUPPLY Qty: 1 0RF Rx Instructions: As directed citalopram 40 mg tablet 40 mg PO QHS Qty: 90 1RF clopidogrel 75 mg tablet 75 mg PO DAILY Qty: 90 3RF bisacodyl [Dulcolax (bisacodyl)] 5 mg tablet,delayed release (DR/EC) 5 mg PO QHS PRN (Reason: constipation) 30 Days Qty: 30 3RF atorvastatin 80 mg tablet 80 mg PO QHS Qty: 90 3RF ipratropium-albuterol 0.5 mg-3 mg(2.5 mg base)/3 mL solution for nebulization 3 ml INHALATION Q4H PRN PRN (Reason: SOB &/OR WHEEZING) Qty: 180 6RF (DME) pen needle, diabetic 32 gauge x 5/32 needle See Rx Instructions .ROUTE .MEDSUPPLY Qty: 50 0RF Rx Instructions: 4x/day metoprolol tartrate 25 mg tablet 12.5 mg PO BID Qty: 90 3RF Rx Instructions: albuterol sulfate 90 mcg/actuation HFA aerosol inhaler 2 puff INHALATION Q6H PRN (Reason: shortness of breath or wheezing) Qty: 18 3RF losartan 25 mg tablet 25 mg PO DAILY Qty: 30 11RF furosemide [Lasix] 20 mg tablet 20 mg PO DAILY Qty: 30 11RF risperidone 1 mg tablet 1 mg PO QHS Qty: 90 1RF (DME) [employer]Ne[employer] Emily 2 Sensor Kit See Rx Instructions .ROUTE .MEDSUPPLY Qty: 2 3RF Rx Instructions: As directed alprazolam 0.25 mg tablet 0.25 mg PO QHS Qty: 30 0RF Primary Care Provider: Billy Madera Referrals: Billy Madera MD [Primary Care Provider] - Ethan Lozano MD [Med Staff - Active Staff] - 3-5 Days Activity Restrictions/Additional Instructions: Cardiac work-up negative. Follow-up with your doctors. Return if any worsening symptoms. Disposition Disposition: Home, Self Care
--- NOTE | 2022-07-15 20:27 | RAD_ITS ---
EXAM: XR CHEST, 2 VIEWS CLINICAL INDICATION: chest pain TECHNIQUE: Frontal and lateral views of the chest. This report was created using [employer] report generation technology. COMPARISON: 05/21/2022 FINDINGS: LUNGS AND PLEURAL SPACES: Unremarkable. No consolidation or edema. No pneumothorax. No effusion. HEART: Unremarkable. Cardiac silhouette not enlarged. MEDIASTINUM: Central airways and mediastinal contour are unremarkable. BONES/JOINTS: Unremarkable. SOFT TISSUES: Unremarkable. RAD/Chest PA and Lateral IMPRESSION: No radiographic evidence of acute cardiopulmonary disease. Electronically Signed: Josh Ramírez MD at 20:52 EST ,
[2022-07-15 20:29] LABS: Absolute Lymphocyte Count 1.45 X10^3/uL (0.83-4.51); Absolute Neutrophil Count 8.6 X10^3/uL (2.0-7.7); Basophil# 0.07 X10^3/uL; Basophil% 0.6 % (0-1); Eosinophil# 0.23 X10^3/uL; Eosinophils% 2.1 % (0-5); Hematocrit 36.9 % (37-47); Hemoglobin 12.5 g/dL (12.0-15.0); Lymphocyte # 1.45 X10^3/ul (0.83-4.51); Lymphocyte % 13.1 % (19-41); Mean Corp Hgb Conc 33.9 g/dL (32-36); Mean Corpuscular Hgb 30.2 pg (27.0-32.0); Mean Corpuscular Volume 89.1 fL (81-99); Mean Platelet Vol. 11.2 fl (6.2-12.0); Monocyte# 0.64 X10^3/uL; Monocyte% 5.8 % (0-10); NRBC Flagged by Analyzer 0 % (0-5); Neutrophil # 8.59 X10^3/uL (2.7-7.7); Neutrophil % 77.9 % (47-70); Platelet Count 299 K/mm3 (150-450); RBC Distribution Width CV 12.1 % (11.6-14.6); RBC Distribution Width SD 39.2 fl (35.1-43.9); Red Blood Count 4.14 M/mm3 (4.2-5.4)
[2022-07-15 21:00] VITALS: BP 164/72; PULSE 67; RESP 15; O2SAT 100
[2022-07-15 21:46] LABS: Anion Gap 5 (5-15); BUN 15 mg/dL (7-18); BUN/Creat Ratio 16.3 RATIO (10-20); Calcium,Total 10.1 mg/dL (8.5-10.1); Chloride 90 mmol/L (98-107); Creatinine, Serum 0.92 mg/dL (0.55-1.02); EST Glomerular Filtration Rate 64 mL/min (>60); Est Glom Filt Rate - Afr Amer 78 mL/min (>60); Glucose 209 mg/dL (74-106); Potassium 4.2 mmol/L (3.5-5.1); Sodium Level 128 mmol/L (136-145); Troponin-I HS (w/2H Reflex) 8 pg/mL (3.0-54.0)
[2022-07-15 22:24] LABS: Reflex Troponin-HS? (from REC) Y
[2022-07-15 23:31] LABS: Troponin-I HS 13 pg/mL (3.0-54.0)
== END 2022-07-16 00:52 | disposition home or self-care (01) ==
PROVIDERS: Emergency Provider Emergency Medicine; PCP Internal Medicine; Visit Provider Emergency Medicine
DX: R07.9 Chest pain, unspecified (principal); J44.9 Chronic obstructive pulmonary disease, unspecified; I11.0 Hypertensive heart disease with heart failure; I50.9 Heart failure, unspecified; E11.9 Type 2 diabetes mellitus without complications; E78.5 Hyperlipidemia, unspecified; I25.10 Atherosclerotic heart disease of native coronary artery without angina pectoris; E87.1 Hypo-osmolality and hyponatremia; J02.9 Acute pharyngitis, unspecified; Z87.891 Personal history of nicotine dependence; H92.02 Otalgia, left ear
CPT/HCPCS: 71046; 80048; 84484; 85025; 93005; 99285; A4216

== ENCOUNTER → 2022-08-13 | Outpatient (CLI) | payer MEDICARE, SELFPAY ==
[2021-11-03 12:08] VITALS: BMI 34.9
== END | disposition home or self-care (01) ==
LOC: LABSPEC 13:23
PROVIDERS: PCP Internal Medicine; Referring Provider Physician Assistant; Visit Provider Physician Assistant
DX: R06.02 Shortness of breath (principal); Z20.822 Contact with and (suspected) exposure to COVID-19
CPT/HCPCS: 87635; U0003; U0005

== ENCOUNTER 2022-08-17 17:45 | Emergency (ER) | payer MEDICARE, SELFPAY ==
[2021-11-03 12:08] VITALS: BMI 34.9
[2022-08-17 17:48] VITALS: BP 171/62; PULSE 77; RESP 18; TEMP 36.2; O2SAT 100; BMI 36.6
--- NOTE | 2022-08-17 18:05 | EKG12_ITS ---
Test Reason : CP Blood Pressure : / mmHG Vent. Rate : 075 BPM Atrial Rate : 075 BPM P-R Int : 162 ms QRS Dur : 076 ms QT Int : 382 ms P-R-T Axes : 078 037 051 degrees QTc Int : 426 ms Normal sinus rhythm Low voltage QRS Borderline ECG Confirmed by RAMIREZ MELVIN, ARPITA ([id number]), features editor JAVIER COLBY ([id number]) on 08/19/2022 10:39:42 AM Referred By: KIMBERLEE/MADDIE Confirmed By:ARPITA GUZMÁN MD
--- NOTE | 2022-08-17 18:12 | EDS_ITS ---
HPI History of Present Illness Chief Complaint: Chest Pain Informant: patient and EMS Narrative Narrative: Presents by EMS for from home sudden onset substernal chest pressure while at rest. Increasing dyspnea and nausea at that time. COPD history CHF CAD chronic 4 L of oxygen. Remote tobacco. Cough for the past 4 days. No fevers. Seen PCP, negative COVID flu and strep. History of 2 stents in the past followed by Dr. Lozano last time was 6 years ago with a cath at that time. Denies stress test since then. Denies vomiting or diarrhea. Symptoms currently subsiding. Status post 4 baby aspirin and nitroglycerin x1 by EMS with improving symptoms. History of hypertension, diabetes hyperlipidemia, tobacco brother with an ND of a young age. [facility] Medical History Anemia Anxiety and depression Asthma Asthma with COPD Atherosclerotic heart disease of [place] coronary artery without angina pectoris Back pain Bilateral pneumonia CHF (congestive heart failure) Chronic back pain Chronic respiratory failure Constipation COPD (chronic obstructive pulmonary disease) Depression Diabetes Flu vaccine need Former smoker Health care maintenance Heart disease Hepatitis History of constipation HLD (hyperlipidemia) Hypertension Lung disease On home oxygen therapy MARK (obstructive sleep apnea) Pneumonia Psoriasis Smoking greater than 40 pack years SOB (shortness of breath) Thyroid nodule Type 2 diabetes mellitus Home Medications Handicap Placard #1 ea 12/12/20 [Rx Last Taken Unknown] flash glucose scanning reader (Scioderm Emily 2 [place]) #1 ea 01/31/21 [Rx Last Taken Unknown] citalopram 40 mg tablet 40 mg PO QHS depression #90 tabs 07/23/21 [Rx Last Taken 08/08/21] insulin lispro 100 unit/mL subcutaneous pen (Humalog KwikPen (U-100) Insulin) 17 unit (0.17 mL) subcut TID diabetes 3 months #45.9 mL 08/19/21 [Rx Last Taken Unknown] clopidogrel 75 mg tablet 75 mg PO DAILY #90 tabs 10/06/21 [Rx Last Taken Unknown] insulin glargine 100 unit/mL (3 mL) subcutaneous pen (Basaglar KwikPen U-100 Insulin) 36 unit subcut DAILY diabetic managment 10/12/21 [History Last Taken Unknown] isosorbide mononitrate 60 mg tablet,extended release 24 hr 60 mg PO DAILY BP 10/12/21 [History Last Taken Unknown] acetaminophen 500 mg tablet 500 mg PO QHS 10/21/21 [History Last Taken Unknown] bisacodyl 5 mg tablet,delayed release (Dulcolax (bisacodyl)) 5 mg PO QHS PRN constipation 30 days #30 tabs 11/13/21 [Rx Last Taken Unknown] atorvastatin 80 mg tablet 80 mg PO QHS #90 tabs 12/10/21 [Rx Last Taken Unknown] nitroglycerin 0.4 mg sublingual tablet 0.4 mg sublingual Q5-15M PRN Pain 01/20/22 [History Last Taken Unknown] ipratropium 0.5 mg-albuterol 3 mg (2.5 mg base)/3 mL nebulization soln 3 ml inhalation Q4H PRN PRN SOB &/OR WHEEZING #180 mL 02/11/22 [Rx Last Taken Unknown] pen needle, diabetic 32 gauge x 32 #50 ea 02/11/22 [Rx Last Taken Unknown] pantoprazole 40 mg tablet,delayed release 40 mg PO DAILY #90 tabs 04/24/22 [Rx Last Taken Unknown] tizanidine 2 mg tablet 2 mg PO HS PRN muscle spasticity #30 tabs 04/24/22 [Rx Last Taken Unknown] metoprolol tartrate 25 mg tablet 12.5 mg PO BID #90 tabs 05/04/22 [Rx Last Taken Unknown] losartan 25 mg tablet 25 mg PO DAILY #30 tabs 05/13/22 [Rx Last Taken Unknown] furosemide 20 mg tablet (Lasix) 20 mg PO DAILY #30 tabs 06/01/22 [Rx Last Taken Unknown] risperidone 1 mg tablet 1 mg PO QHS anxiety #90 tabs 06/01/22 [Rx Last Taken Unknown] lidocaine 5 % topical patch 2 patch topical DAILY #30 ea 06/03/22 [Rx Last Taken Unknown] flash glucose sensor (FreeStyle Emily 2 Sensor kit) #2 ea 06/04/22 [Rx Last Taken Unknown] blood sugar diagnostic (Accu-Chek Aundrea Plus test strips) #100 ea 07/22/22 [Rx Last Taken Unknown] blood-glucose meter (Accu-Chek Aundrea Plus Meter) #1 ea 07/22/22 [Rx Last Taken Unknown] albuterol sulfate 90 mcg/actuation aerosol inhaler 2 puff inhalation Q6H PRN shortness of breath or wheezing #18 grams 07/24/22 [Rx Last Taken Unknown] alprazolam 0.25 mg tablet 0.25 mg PO QHS #30 tabs 08/11/22 [Rx Last Taken Unknown] budesonide 1 mg/2 mL suspension for nebulization 1 mg (2 mL) inhalation BID #60 mL 08/13/22 [Rx Last Taken Unknown] cefdinir 300 mg capsule 300 mg PO BID #13 caps 08/17/22 [Rx Last Taken Unknown] Allergy/AdvReac Type Severity Reaction Status Date / Time amoxicillin [Amoxicillin] Allergy Intermediate Rash Verified 08/13/22 13:03 gabapentin [From Neurontin] Allergy Shortness Verified 08/13/22 13:03 of breath levofloxacin [From Levaquin] Allergy Hives Verified 08/13/22 13:03 pseudoephedrine HCl Allergy Shortness Verified 08/13/22 13:03 [From Sudafed] of breath red dye Allergy Hives Verified 08/13/22 13:03 prednisone AdvReac Severe mean mood Verified 08/13/22 13:03 codeine AdvReac HEADACHE Verified 08/13/22 13:03 Family History Brother Heart disease Mother Colon cancer Heart disease Surgical History History of cholecystectomy History of coronary artery stent placement History of left heart catheterization (LHC) (~09/23/20) Hx of CABG Stented coronary artery (12/28/18) Social History Smoking Status: Former smoker pack-years: 40 how long ago did patient quit smokin year ago alcohol intake: never substance use type: does not use caffeine: Yes Type: carbonated beverages and tea what type of physical activity do you participate in: none ROS ROS ED Constitutional Constitutional ED: Denies chills, fever(s) or sweats Eyes Eyes: Denies change in vision ENT ENT ED: Denies dysphagia or sore throat Cardiovascular Cardiovascular: Reports chest pain; Denies leg edema, palpitations or racing heartbeat Respiratory/Chest Respiratory/Chest: Reports cough; Denies dyspnea or dyspnea on exertion Gastrointestinal Gastrointestinal: Denies abdominal pain, diarrhea, nausea or vomiting Genitourinary Genitourinary ED: Denies dysuria, hematuria or urinary frequency Musculoskeletal Musculoskeletal: Denies back pain, extremity pain or neck pain Integumentary Denies rash or wounds Neurologic Neurologic: Denies headache(s), paresthesias or weakness EXAM Physical Exam Const Vital Signs: 08/17/22 17:48 08/17/22 18:11 08/17/22 18:11 Temperature 97.2 F L Temperature Source Temporal Pulse Rate 77 Respiratory Rate 18 Respiratory Effort Short of Breath Blood Pressure 171/62 H Blood Pressure Mean 98 Pulse Ox 100 Oxygen Delivery Method Room Air Nasal Cannula Oxygen Flow Rate (L/min) 4 08/17/22 21:34 Temperature Temperature Source Pulse Rate 76 Respiratory Rate 19 H Respiratory Effort Blood Pressure 138/88 H Blood Pressure Mean Pulse Ox 95 Oxygen Delivery Method Oxygen Flow Rate (L/min) Positive well nourished and well developed Constitutional Narrative: 4 L nasal cannula, no respiratory distress General Appearance ED: well developed and NAD HEENT Reports moist mucous membranes normocephalic and atraumatic Eyes PERRL, EOMs intact bilaterally and conjunctivae normal General Eye ED: Yes normal appearance of both eyes Neck no lymphadenopathy and supple General: Negative for tenderness Chest Wall Chest: Negative for tenderness Resp normal respiratory effort and normal air movement Effort and Inspection: symmetric chest movement; Negative for respiratory distress Cardio regular rate, regular rhythm and no murmurs Peripheral Pulses: pulses 2+ throughout GI normal to inspection, nondistended, normoactive bowel sounds and non-tender Palpation: Negative for guarding or rebound tenderness present Back/Spine no CVA tenderness and no thoracic nor lumbar tenderness Extremity normal to inspection General Extremety ED: Negative for edema or tenderness General Extremity: Negative for edema Neuro oriented x3 and no sensory deficits noted Sensorium / Orientation: awake and alert Skin no rashes or lesions noted and no wounds MDM MDM MDM Narrative Medical decision making narrative: Patient presents with improving chest pains. History of coronary disease with stenting. EKG normal. Differential ACS. She has no PE risk factors reporting coughing with sputum for 4 days differential COPD exacerbation and pneumonia. No sharp pains to the back for concerns for dissection. Also differential COVID versus viral syndrome however she reported recent negative COVID test symptoms started with PCP. Laboratory studies obtained and reviewed by myself all normal. Troponin negative x2. Glucose was however elevated to 95 with normal gap. White count 9.1. Two-view chest x-ray interpreted by myself and read by radiology unless versus infiltrate. She has had productive sputum. She will be treated for [place] acquired pneumonia. She is started on Omnicef. She is maintaining normal oxygenation with her 4 L of oxygen. Prescription was sent to her pharmacy. Return precaution discussed. She is chest pain-free on reevaluation. Lab Data Attestation: I reviewed the patient's lab results. Labs: Laboratory Results - last 24 hr 08/17/22 08/17/22 08/17/22 18:08 18:08 20:19 WBC 9.1 RBC 3.84 L Hgb 11.5 L Hct 35.4 L MCV 92.2 MCH 29.9 MCHC 32.5 RDW Std Deviation 40.5 RDW Coeff of [place] 12.1 Plt Count 235 MPV 10.3 Immature Gran % (Auto) 0.800 Neut % (Auto) 74.5 H Lymph % (Auto) 16.6 L [place] % (Auto) 6.0 Eos % (Auto) 1.6 Baso % (Auto) 0.5 Absolute Neuts (auto) 6.8 Absolute Lymphs (auto) 1.51 Nucleated RBC % 0 Sodium 134 L Potassium 3.9 Chloride 98 Carbon Dioxide 31.0 Anion Gap 5 BUN 16 Creatinine 0.96 Estim Creat Clear Calc 42.51 Est GFR (MDRD) Af Amer 74 Est GFR (MDRD) Non-Af 61 BUN/Creatinine Ratio 16.7 Glucose 295 H Calcium 9.1 Troponin I High Sens 8 10 Radiography Diagnostic Testing: Clinical Impression(s) from Imaging Studies Chest X-Ray 08/17/22 18:17 IMPRESSION: Lower lung atelectasis or infiltrates Electronically Signed: Deon Mays MD at 18:45 EST , EKG Initial EKG: Attestation: I personally reviewed and interpreted this EKG as follows: Comments: Sinus rate of 75, no ST or T wave changes. Discharge Plan Triage Chief Complaint: Chest Pain ED Provider: Jose Luis Goodwin Dx/Rx/DC Orders Clinical Impression: Pneumonia, Chest pain, COPD (chronic obstructive pulmonary disease) Instructions: ED Chest Pain, Uncertain Cause, ED Pneumonia (Adult) Prescriptions: New cefdinir 300 mg capsule 300 mg PO BID Qty: 13 0RF No Action (DME) Handicap Placard See Rx Instructions .ROUTE .MEDSUPPLY Qty: 1 0RF Rx Instructions: As directed, length of time 3 years insulin lispro [Humalog KwikPen Insulin] 100 unit/mL insulin pen 17 unit SC TID 90 Days Qty: 45.9 3RF Rx Instructions: Hold if glucose less than 130 mg/dl lidocaine 5 % adhesive patch,medicated 2 patch topical DAILY Qty: 30 3RF Rx Instructions: leave on most painful area for up to 12 hrs tizanidine 2 mg tablet 2 mg PO HS PRN (Reason: muscle spasticity) Qty: 30 0RF pantoprazole 40 mg tablet,delayed release (DR/EC) 40 mg PO DAILY Qty: 90 1RF budesonide 1 mg/2 mL suspension for nebulization 1 mg inhalation BID Qty: 60 6RF insulin glargine [Basaglar KwikPen U-100 Insulin] 100 unit/mL (3 mL) insulin pen 36 unit subcut DAILY Rx Instructions: daily at bedtime isosorbide mononitrate 60 mg tablet extended release 24 hr 60 mg PO DAILY acetaminophen 500 MG tablet 500 mg PO QHS Rx Instructions: over the counter. no prescription required. nitroglycerin 0.4 mg tablet, sublingual 0.4 mg SUBLINGUAL Q5-15M PRN (Reason: Pain) (DME) FreeStyle Emily 2 [place] [facility] [place] Instructions .ROUTE .MEDSUPPLY Qty: 1 0RF Rx Instructions: As directed citalopram 40 mg tablet 40 mg PO QHS Qty: 90 1RF clopidogrel 75 mg tablet 75 mg PO DAILY Qty: 90 3RF bisacodyl [Dulcolax (bisacodyl)] 5 mg tablet,delayed release (DR/EC) 5 mg PO QHS PRN (Reason: constipation) 30 Days Qty: 30 3RF atorvastatin 80 mg tablet 80 mg PO QHS Qty: 90 3RF ipratropium-albuterol 0.5 mg-3 mg(2.5 mg base)/3 mL solution for nebulization 3 ml INHALATION Q4H PRN PRN (Reason: SOB &/OR WHEEZING) Qty: 180 6RF (DME) pen needle, diabetic 32 gauge x needle See Rx Instructions .ROUTE .MEDSUPPLY Qty: 50 0RF Rx Instructions: 4x/day metoprolol tartrate 25 mg tablet 12.5 mg PO BID Qty: 90 3RF Rx Instructions: losartan 25 mg tablet 25 mg PO DAILY Qty: 30 11RF furosemide [Lasix] 20 mg tablet 20 mg PO DAILY Qty: 30 11RF risperidone 1 mg tablet 1 mg PO QHS Qty: 90 1RF (DME) FreeStyle Emily 2 Sensor Kit See Rx Instructions .ROUTE .MEDSUPPLY Qty: 2 3RF Rx Instructions: As directed (DME) Accu-Chek Aundrea Plus test strp Strip See Rx Instructions .ROUTE .MEDSUPPLY Qty: 100 8RF Rx Instructions: tid (DME) blood-glucose meter [Accu-Chek Aundrea Plus Meter] Misc See Rx Instructions .Route Qty: 1 0RF Rx Instructions: As directed albuterol sulfate 90 mcg/actuation HFA aerosol inhaler 2 puff INHALATION Q6H PRN (Reason: shortness of breath or wheezing) Qty: 18 3RF alprazolam 0.25 mg tablet 0.25 mg PO QHS Qty: 30 0RF Primary Care Provider: Billy Madera Referrals: Billy Madera MD [Primary Care Provider] - 3-5 Days Activity Restrictions/Additional Instructions: Left lower lobe pneumonia seen on x-ray. Cardiac work-up negative. Take antibiotic as prescribed. Return if any worsening symptoms. Disposition Disposition: Home, Self Care Discharge Date/Time: 08/17/22 21:34
--- NOTE | 2022-08-17 18:17 | RAD_ITS ---
STUDY: X-RAY CHEST REASON FOR EXAM: Female, 72 years old. Chest pain TECHNIQUE: Frontal and lateral views of the chest. COMPARISON: July 15, 2022 FINDINGS: There are monitoring devices. There are bilateral lower lung increased opacities. There is stable left pleural thickening. Normal size heart. Normal mediastinum and wallace. Normal visualized pulmonary arteries. There is atherosclerotic calcification of the aortic arch. Normal visualized thoracic spine. Normal visualized ribs, clavicles, and shoulders. There is no demonstrated abnormality of the visualized soft tissue structures of the upper abdomen. RAD/Chest PA and Lateral IMPRESSION: Lower lung atelectasis or infiltrates Electronically Signed: Deon Mays MD at 18:45 EST ,
[2022-08-17 18:19] LABS: Absolute Lymphocyte Count 1.51 X10^3/uL (0.83-4.51); Absolute Neutrophil Count 6.8 X10^3/uL (2.0-7.7); Basophil# 0.05 X10^3/uL; Basophil% 0.5 % (0-1); Eosinophil# 0.15 X10^3/uL; Eosinophils% 1.6 % (0-5); Hematocrit 35.4 % (37-47); Hemoglobin 11.5 g/dL (12.0-15.0); Lymphocyte # 1.51 X10^3/ul (0.83-4.51); Lymphocyte % 16.6 % (19-41); Mean Corp Hgb Conc 32.5 g/dL (32-36); Mean Corpuscular Hgb 29.9 pg (27.0-32.0); Mean Corpuscular Volume 92.2 fL (81-99); Mean Platelet Vol. 10.3 fl (6.2-12.0); Monocyte# 0.55 X10^3/uL; NRBC Flagged by Analyzer 0 % (0-5); Neutrophil # 6.78 X10^3/uL (2.7-7.7); Neutrophil % 74.5 % (47-70); Platelet Count 235 K/mm3 (150-450); RBC Distribution Width CV 12.1 % (11.6-14.6); RBC Distribution Width SD 40.5 fl (35.1-43.9); Red Blood Count 3.84 M/mm3 (4.2-5.4); White Blood Count 9.1 K/mm3 (4.4-11.0)
[2022-08-17 18:39] LABS: Anion Gap 5 (5-15); BUN 16 mg/dL (7-18); BUN/Creat Ratio 16.7 RATIO (10-20); Calcium,Total 9.1 mg/dL (8.5-10.1); Chloride 98 mmol/L (98-107); Creatinine, Serum 0.96 mg/dL (0.55-1.02); EST Glomerular Filtration Rate 61 mL/min (>60); Est Glom Filt Rate - Afr Amer 74 mL/min (>60); Estimated Creatinine Clearance 42.51 ml/min; Glucose 295 mg/dL (74-106); Potassium 3.9 mmol/L (3.5-5.1); Sodium Level 134 mmol/L (136-145); Troponin-I HS (w/2H Reflex) 8 pg/mL (3.0-54.0)
[2022-08-17 20:11] LABS: Reflex Troponin-HS? (from REC) Y
[2022-08-17 20:54] LABS: Troponin-I HS 10 pg/mL (3.0-54.0)
[2022-08-17] MEDS: Cefdinir 300 MG Capsule PO (21:27)
[2022-08-17 21:34] VITALS: BP 138/88; PULSE 76; RESP 19; O2SAT 95
== END 2022-08-17 21:34 | disposition home or self-care (01) ==
PROVIDERS: Emergency Provider Emergency Medicine; PCP Internal Medicine; Visit Provider Emergency Medicine
DX: J18.9 Pneumonia, unspecified organism (principal); J44.0 Chronic obstructive pulmonary disease with (acute) lower respiratory infection; I11.0 Hypertensive heart disease with heart failure; I50.9 Heart failure, unspecified; E11.9 Type 2 diabetes mellitus without complications; Z95.5 Presence of coronary angioplasty implant and graft; Z87.891 Personal history of nicotine dependence; E78.5 Hyperlipidemia, unspecified; I25.10 Atherosclerotic heart disease of native coronary artery without angina pectoris; R07.9 Chest pain, unspecified
CPT/HCPCS: 71046; 80048; 84484; 85025; 93005; 99285; A4216

== ENCOUNTER 2022-08-28 14:36 | Emergency (ER) | payer MEDICARE, SELFPAY ==
[2021-11-03 12:08] VITALS: BMI 34.9
[2022-08-28 14:38] VITALS: BP 120/64; PULSE 66; RESP 20; TEMP 37.1; O2SAT 100; BMI 40.6
--- NOTE | 2022-08-28 15:14 | EDS_ITS ---
HPI History of Present Illness Chief Complaint: Back Informant: patient Onset/Context/Timing Onset: Month(s) (Back pain flare x2 months, worse today) Injury: bending Narrative Narrative: Patient presents via EMS secondary to back and right hip pain. She has a history of chronic back pain and states it is been bothering her for the past 2 months. Today she bent forward to pickle pumper a can of Coke and had increased pain across her lower back and into the right hip. Pain does not radiate down the right leg. There was no fall or direct injury either today or 2 months ago when this flare started. She has had no fever or chills. No problems with bowel or bladder control. She takes Excedrin and Tylenol as needed at home for pain. 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 Back pain Bilateral pneumonia CHF (congestive heart failure) Chronic back pain Chronic respiratory failure Constipation COPD (chronic obstructive pulmonary disease) Depression Diabetes Flu vaccine need Former smoker Health care maintenance Heart disease Hepatitis History of constipation HLD (hyperlipidemia) Hypertension Lung disease On home oxygen therapy MARK (obstructive sleep apnea) Pneumonia Psoriasis Smoking greater than 40 pack years SOB (shortness of breath) Thyroid nodule Type 2 diabetes mellitus Home Medications Handicap Placard #1 ea 12/12/20 [Rx Last Taken Unknown] flash glucose scanning reader (FreeStyle Emily 2 [place]) #1 ea 01/31/21 [Rx Last Taken Unknown] citalopram 40 mg tablet 40 mg PO QHS depression #90 tabs 07/23/21 [Rx Last Taken 08/08/21] insulin lispro 100 unit/mL subcutaneous pen (Humalog KwikPen (U-100) Insulin) 17 unit (0.17 mL) subcut TID diabetes 3 months #45.9 mL 08/19/21 [Rx Last Taken Unknown] clopidogrel 75 mg tablet 75 mg PO DAILY #90 tabs 10/06/21 [Rx Last Taken Unknown] insulin glargine 100 unit/mL (3 mL) subcutaneous pen (Basaglar KwikPen U-100 Insulin) 36 unit subcut DAILY diabetic managment 10/12/21 [History Last Taken Unknown] isosorbide mononitrate 60 mg tablet,extended release 24 hr 60 mg PO DAILY BP 10/12/21 [History Last Taken Unknown] acetaminophen 500 mg tablet 500 mg PO QHS 10/21/21 [History Last Taken Unknown] bisacodyl 5 mg tablet,delayed release (Dulcolax (bisacodyl)) 5 mg PO QHS PRN constipation 30 days #30 tabs 11/13/21 [Rx Last Taken Unknown] atorvastatin 80 mg tablet 80 mg PO QHS #90 tabs 12/10/21 [Rx Last Taken Unknown] nitroglycerin 0.4 mg sublingual tablet 0.4 mg sublingual Q5-15M PRN Pain 01/20/22 [History Last Taken Unknown] ipratropium 0.5 mg-albuterol 3 mg (2.5 mg base)/3 mL nebulization soln 3 ml inhalation Q4H PRN PRN SOB &/OR WHEEZING #180 mL 02/11/22 [Rx Last Taken Unknown] pen needle, diabetic 32 gauge x 32 #50 ea 02/11/22 [Rx Last Taken Unknown] pantoprazole 40 mg tablet,delayed release 40 mg PO DAILY #90 tabs 04/24/22 [Rx Last Taken Unknown] tizanidine 2 mg tablet 2 mg PO HS PRN muscle spasticity #30 tabs 04/24/22 [Rx Last Taken Unknown] metoprolol tartrate 25 mg tablet 12.5 mg PO BID #90 tabs 05/04/22 [Rx Last Taken Unknown] losartan 25 mg tablet 25 mg PO DAILY #30 tabs 05/13/22 [Rx Last Taken Unknown] furosemide 20 mg tablet (Lasix) 20 mg PO DAILY #30 tabs 06/01/22 [Rx Last Taken Unknown] risperidone 1 mg tablet 1 mg PO QHS anxiety #90 tabs 06/01/22 [Rx Last Taken Unknown] lidocaine 5 % topical patch 2 patch topical DAILY #30 ea 06/03/22 [Rx Last Taken Unknown] blood sugar diagnostic (Accu-Chek Aundrea Plus test strips) #100 ea 07/22/22 [Rx Last Taken Unknown] albuterol sulfate 90 mcg/actuation aerosol inhaler 2 puff inhalation Q6H PRN shortness of breath or wheezing #18 grams 07/24/22 [Rx Last Taken Unknown] alprazolam 0.25 mg tablet 0.25 mg PO QHS #30 tabs 08/11/22 [Rx Last Taken Unknown] budesonide 1 mg/2 mL suspension for nebulization 1 mg (2 mL) inhalation BID #60 mL 08/13/22 [Rx Last Taken Unknown] cefdinir 300 mg capsule 300 mg PO BID #13 caps 08/17/22 [Rx Last Taken Unknown] flash glucose sensor (FreeStyle Emily 2 Sensor kit) #2 ea 08/26/22 [Rx Last Taken Unknown] blood-glucose meter (Accu-Chek Aundrea Plus Meter) #1 ea 08/27/22 [Rx Last Taken Unknown] hydrocodone-acetaminophen 5-325mg 5mg-325mg 1 tab PO Q6H PRN pain 3 days #10 tabs 08/28/22 [Rx Last Taken Unknown] Allergy/AdvReac Type Severity Reaction Status Date / Time amoxicillin [Amoxicillin] Allergy Intermediate Rash Verified 08/13/22 13:03 gabapentin [From Neurontin] Allergy Shortness Verified 08/13/22 13:03 of breath levofloxacin [From Levaquin] Allergy Hives Verified 08/13/22 13:03 pseudoephedrine HCl Allergy Shortness Verified 08/13/22 13:03 [From Sudafed] of breath red dye Allergy Hives Verified 08/13/22 13:03 prednisone AdvReac Severe mean mood Verified 08/13/22 13:03 codeine AdvReac HEADACHE Verified 08/13/22 13:03 Family History Brother Heart disease Mother Colon cancer Heart disease Surgical History History of cholecystectomy History of coronary artery stent placement History of left heart catheterization (LHC) (~09/23/20) Hx of CABG Stented coronary artery (12/28/18) Social History Smoking Status: Former smoker pack-years: 40 how long ago did patient quit smokin year ago alcohol intake: never substance use type: does not use caffeine: Yes Type: carbonated beverages and tea what type of physical activity do you participate in: none ROS ROS ED Constitutional Constitutional ED: Denies chills or fever(s) Eyes Eyes: Denies change in vision or discharge from eye(s) ENT ENT ED: Denies discharge from eye(s), rhinorrhea or sore throat Cardiovascular Cardiovascular: Denies chest pain or palpitations Respiratory/Chest Respiratory/Chest: Denies cough or dyspnea Gastrointestinal Gastrointestinal: Denies abdominal pain, diarrhea, nausea or vomiting Genitourinary Genitourinary ED: Denies difficulty urinating or dysuria Musculoskeletal Musculoskeletal: Reports back pain and extremity pain Integumentary Denies Abrasions or rash Neurologic Neurologic: Denies headache(s) or weakness Psychiatric Psychiatric: Denies anxiety or depression Endocrine Endocrinology: Denies polydipsia or polyuria Allergic/Immunologic Allergic/Immunologic ED: Denies lip swelling or urticaria EXAM Physical Exam Const Vital Signs: 08/28/22 14:38 Temperature 98.7 F Temperature Source Oral Pulse Rate 66 Respiratory Rate 20 H Blood Pressure 120/64 Blood Pressure Mean 82 Pulse Ox 100 Oxygen Delivery Method Nasal Cannula Oxygen Flow Rate (L/min) 4 Positive well nourished and well developed General Appearance ED: well developed HEENT Reports normocephalic and head/scalp atraumatic Eyes PERRL and EOMs intact bilaterally Neck supple Chest Wall inspection of chest normal and palpation of chest normal Resp normal respiratory effort and clear to auscultation bilaterally Cardio regular rate and regular rhythm GI normal to inspection, nondistended, normoactive bowel sounds Palpation: soft Back/Spine Back/Spine Narrative: No thoracic tenderness. Reproducible tenderness noted in the low lumbar spine region midline as well as bilateral paraspinals. No overlying skin change. Extremity normal to inspection Neuro oriented x3 and no sensory deficits noted Sensorium / Orientation: alert Motor Exam: strength 5/5 throughout Psych mental status grossly normal Skin no rashes or lesions noted MDM MDM MDM Narrative Medical decision making narrative: Patient is given a dose of [place] and Lidoderm patches placed on her back. I did perform an OARRS report. She has had no narcotics and has not received any muscle relaxers since last February. Treatment and Re-Evaluation Narrative: Repeat evaluation patient does have some improvement. I discussed with her writing her prescriptions for the same medications received here. She states that she had been given a prescription for Lidoderm patches 2 months ago, however her insurance will not cover the cost and she cannot afford it. I advised her that it is available [id number] and is not expensive. She will pick it up [id number]. I will send her prescription for [place]. Return instructions are provided. I discussed with her that I do not believe imaging is necessary as there is been no direct trauma or injury to her back. Patient has an allergy to prednisone and is diabetic, therefore steroids will be avoided at this time. I will avoid muscle relaxers at this time as I do not want to give her two sedating medications at the same time given her chronic respiratory failure. Discharge Plan Triage Chief Complaint: Back ED Provider: Mariah Miller Dx/Rx/DC Orders Clinical Impression: Lumbar strain, Sciatica Instructions: ED Back Pain (Acute or Chronic), ED Sciatica Prescriptions: New hydrocodone-acetaminophen 5-325 mg tablet 1 tab PO Q6H PRN (Reason: pain) 3 Days Qty: 10 0RF No Action (DME) Handicap Placard See Rx Instructions .ROUTE .MEDSUPPLY Qty: 1 0RF Rx Instructions: As directed, length of time 3 years insulin lispro [Humalog KwikPen Insulin] 100 unit/mL insulin pen 17 unit SC TID 90 Days Qty: 45.9 3RF Rx Instructions: Hold if glucose less than 130 mg/dl lidocaine 5 % adhesive patch,medicated 2 patch topical DAILY Qty: 30 3RF Rx Instructions: leave on most painful area for up to 12 hrs tizanidine 2 mg tablet 2 mg PO HS PRN (Reason: muscle spasticity) Qty: 30 0RF pantoprazole 40 mg tablet,delayed release (DR/EC) 40 mg PO DAILY Qty: 90 1RF budesonide 1 mg/2 mL suspension for nebulization 1 mg inhalation BID Qty: 60 6RF insulin glargine [Basaglar KwikPen U-100 Insulin] 100 unit/mL (3 mL) insulin pen 36 unit subcut DAILY Rx Instructions: daily at bedtime isosorbide mononitrate 60 mg tablet extended release 24 hr 60 mg PO DAILY acetaminophen 500 MG tablet 500 mg PO QHS Rx Instructions: over the counter. no prescription required. nitroglycerin 0.4 mg tablet, sublingual 0.4 mg SUBLINGUAL Q5-15M PRN (Reason: Pain) cefdinir 300 mg capsule 300 mg PO BID Qty: 13 0RF (DME) FreeStyle Emily 2 [place] Misc See Rx Instructions .ROUTE .MEDSUPPLY Qty: 1 0RF Rx Instructions: As directed citalopram 40 mg tablet 40 mg PO QHS Qty: 90 1RF clopidogrel 75 mg tablet 75 mg PO DAILY Qty: 90 3RF bisacodyl [Dulcolax (bisacodyl)] 5 mg tablet,delayed release (DR/EC) 5 mg PO QHS PRN (Reason: constipation) 30 Days Qty: 30 3RF atorvastatin 80 mg tablet 80 mg PO QHS Qty: 90 3RF ipratropium-albuterol 0.5 mg-3 mg(2.5 mg base)/3 mL solution for nebulization 3 ml INHALATION Q4H PRN PRN (Reason: SOB &/OR WHEEZING) Qty: 180 6RF (DME) pen needle, diabetic 32 gauge x 5/32 needle See Rx Instructions .ROUTE .MEDSUPPLY Qty: 50 0RF Rx Instructions: 4x/day metoprolol tartrate 25 mg tablet 12.5 mg PO BID Qty: 90 3RF Rx Instructions: losartan 25 mg tablet 25 mg PO DAILY Qty: 30 11RF furosemide [Lasix] 20 mg tablet 20 mg PO DAILY Qty: 30 11RF risperidone 1 mg tablet 1 mg PO QHS Qty: 90 1RF (DME) Accu-Chek Aundrea Plus test strp Strip See Rx Instructions .ROUTE .MEDSUPPLY Qty: 100 8RF Rx Instructions: tid albuterol sulfate 90 mcg/actuation HFA aerosol inhaler 2 puff INHALATION Q6H PRN (Reason: shortness of breath or wheezing) Qty: 18 3RF alprazolam 0.25 mg tablet 0.25 mg PO QHS Qty: 30 0RF (DME) FreeStyle Emily 2 Sensor Kit See Rx Instructions .ROUTE .MEDSUPPLY Qty: 2 3RF Rx Instructions: As directed (DME) blood-glucose meter [Accu-Chek Aundrea Plus Meter] Misc See Rx Instructions .Route Qty: 1 0RF Rx Instructions: As directed Primary Care Provider: Billy Madera Referrals: Billy Madera MD [Primary Care Provider] - 1 Week Disposition Disposition: Home, Self Care Discharge Date/Time: 08/28/22 16:52
[2022-08-28] MEDS: Lidocaine 5% Patch 1 PATCH TOPICAL (15:34)
[2022-08-28] MEDS: HYDROcodone Bitartrate/Apap 5/325 Tablet PO (15:34)
--- NOTE | 2022-08-28 15:43 | CM.ED ---
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 SUZANNE inquired about patient's current living conditions explaining there were some concerns regarding patient's safety with current house condition. Patient stated she can't clean her home due to her medical condition, explaining she can't breathe well nor has the energy. Patient explained she has tried to find cleaning services but has been told she was over income by [facility]. SW educated patient on [facility] program with [facility], however, patient states she already worked with that program and they were unable to assist with cleaning. SW encouraged patient to look into private pay house keeping options. Patient was receptive towards information and explained she felt safe going home because it's my shit to walk around. No other needs or concerns voiced at this time. SW left VM with APS requesting a phone call back to further discuss. Plan: Patient was D/C home THIEN Vargas Original Note: SUZANNE Note Referral Source: Triage Referral Reason: abuse concerns regarding hoarding. SUZANNE was contacted by Melo with APS regarding another patient, so SUZANNE informed her of new referral for patient. SUZANNE explained the referral from triage states [facility] were concerned with patient's living situation due to concerns of hoarding. SUZANNE provided demographic information and explained she would contact APS regarding discharge disposition, Melo reported understanding and stated she could continue to follow along. THIEN Vargas
--- NOTE | 2022-08-31 10:37 | CM.ED ---
Social Work Note SUZANNE was contacted by Melo with APS to follow up regarding patient. SUZANNE informed Melo she met with patient while patient was in the ED to discuss patient's needs and review available recourses. SUZANNE explained the patient reported being over income to qualify for assistance through [facility] and stopped utilizing the [facility] due to them being unable to assist with cleaning. SUZANNE also recommended to patient she look into possible house keeping before patient discharged home, no other needs or concerns were voiced. Melo explained she would meet with patient to further evaluate her living situation. Melo stated depending on the condition of her home, she might qualify for assistance. Plan: APS to follow up with patient at home THIEN Vargas
== END 2022-08-28 16:52 | disposition home or self-care (01) ==
PROVIDERS: Emergency Provider Emergency Medicine; PCP Internal Medicine; Visit Provider Emergency Medicine
DX: S39.012A Strain of muscle, fascia and tendon of lower back, initial encounter (principal); J44.9 Chronic obstructive pulmonary disease, unspecified; I11.0 Hypertensive heart disease with heart failure; I50.9 Heart failure, unspecified; E11.9 Type 2 diabetes mellitus without complications; E78.5 Hyperlipidemia, unspecified; M25.551 Pain in right hip; I25.10 Atherosclerotic heart disease of native coronary artery without angina pectoris; M54.30 Sciatica, unspecified side; Z87.891 Personal history of nicotine dependence; X58.XXXA Exposure to other specified factors, initial encounter
CPT/HCPCS: 99285

== ENCOUNTER → 2022-09-01 | Outpatient (CLI) | payer MEDICARE, SELFPAY ==
[2021-11-03 12:08] VITALS: BMI 34.9
--- NOTE | 2022-09-01 13:58 | RAD_ITS ---
STUDY: X-RAY CHEST REASON FOR EXAM: Female, 72 years old. PNEUMONIA TECHNIQUE: Single frontal view of the chest. COMPARISON: Chest x-ray August 17, 2022 FINDINGS: Lungs are hyperaerated. The lungs are clear and expanded. Small left effusion. Normal size heart. Normal mediastinum and wallace. Normal visualized pulmonary arteries. Normal visualized aortic arch and descending thoracic aorta. Normal visualized thoracic spine. Normal visualized ribs, clavicles, and shoulders. There is no demonstrated abnormality of the visualized soft tissue structures of the upper abdomen. RAD/Chest PA and Lateral IMPRESSION: Small left effusion unchanged. COPD. Electronically Signed: Suman Cohen MD at 20:31 EST ,
== END | disposition home or self-care (01) ==
LOC: RAD 13:47
PROVIDERS: PCP Internal Medicine; Referring Provider Physician Assistant; Visit Provider Physician Assistant
DX: J18.9 Pneumonia, unspecified organism (principal)
CPT/HCPCS: 71046

== ENCOUNTER 2022-09-23 18:43 | Emergency (ER) | payer MEDICARE, SELFPAY ==
[2021-11-03 12:08] VITALS: BMI 34.9
[2022-09-23] VITALS (7 sets, daily range): BP systolic 107–177; BP diastolic 53–78; PULSE 65–77; RESP 16–33; TEMP 36.1; O2SAT 96–100; BMI 41.2
--- NOTE | 2022-09-23 19:21 | EX.ED.DYSGE1 ---
HPI History of Present Illness Chief Complaint: Chest Pain Informant: patient Narrative Narrative: Patient presents with worsening breathing wheezing and some chest pain for 3 days. All of them have been going on 3 days. Her chest pain is bilateral lower ribs and mostly present when she is coughing. She states she has been wheezing more. She is bringing up some sputum. She states she has fevers but has not checked her temperature. She has been using her nebulizer and last used it about 3-1/2 hours ago. She is on 4 L of oxygen at home and has not changed this. She states her saturations are always good approaching 100%. She also does have a history of heart disease. She has had stents but no bypass. She is on Plavix and is taking it. She has never had a PE or DVT. No leg pain or swelling. No history of CHF per patient but her chart tells different. She states she never has good breathing but feels that has been worse for a few days. [facility] Medical History Anemia Anxiety and depression Asthma Asthma with COPD Atherosclerotic heart disease of [place] coronary artery without angina pectoris Back pain Bilateral pneumonia CHF (congestive heart failure) Chronic back pain Chronic respiratory failure Constipation COPD (chronic obstructive pulmonary disease) Depression Diabetes Flu vaccine need Former smoker Health care maintenance Heart disease Hepatitis History of constipation HLD (hyperlipidemia) Hypertension Lung disease On home oxygen therapy MARK (obstructive sleep apnea) Pneumonia Psoriasis Smoking greater than 40 pack years SOB (shortness of breath) Thyroid nodule Type 2 diabetes mellitus Home Medications Handicap Placard #1 ea 12/12/20 [Rx Last Taken Unknown] flash glucose scanning reader (FreeVdopia Emily 2 [place]) #1 ea 01/31/21 [Rx Last Taken Unknown] citalopram 40 mg tablet 40 mg PO QHS depression #90 tabs 07/23/21 [Rx Last Taken 08/08/21] insulin lispro 100 unit/mL subcutaneous pen (Humalog KwikPen (U-100) Insulin) 17 unit (0.17 mL) subcut TID diabetes 3 months #45.9 mL 08/19/21 [Rx Last Taken Unknown] clopidogrel 75 mg tablet 75 mg PO DAILY #90 tabs 10/06/21 [Rx Last Taken Unknown] insulin glargine 100 unit/mL (3 mL) subcutaneous pen (Basaglar KwikPen U-100 Insulin) 36 unit subcut DAILY diabetic managment 10/12/21 [History Last Taken Unknown] isosorbide mononitrate 60 mg tablet,extended release 24 hr 60 mg PO DAILY BP 10/12/21 [History Last Taken Unknown] acetaminophen 500 mg tablet 500 mg PO QHS 10/21/21 [History Last Taken Unknown] bisacodyl 5 mg tablet,delayed release (Dulcolax (bisacodyl)) 5 mg PO QHS PRN constipation 30 days #30 tabs 11/13/21 [Rx Last Taken Unknown] atorvastatin 80 mg tablet 80 mg PO QHS #90 tabs 12/10/21 [Rx Last Taken Unknown] nitroglycerin 0.4 mg sublingual tablet 0.4 mg sublingual Q5-15M PRN Pain 01/20/22 [History Last Taken Unknown] ipratropium 0.5 mg-albuterol 3 mg (2.5 mg base)/3 mL nebulization soln 3 ml inhalation Q4H PRN PRN SOB &/OR WHEEZING #180 mL 02/11/22 [Rx Last Taken Unknown] pen needle, diabetic 32 gauge x #50 ea 02/11/22 [Rx Last Taken Unknown] pantoprazole 40 mg tablet,delayed release 40 mg PO DAILY #90 tabs 04/24/22 [Rx Last Taken Unknown] tizanidine 2 mg tablet 2 mg PO HS PRN muscle spasticity #30 tabs 04/24/22 [Rx Last Taken Unknown] metoprolol tartrate 25 mg tablet 12.5 mg PO BID #90 tabs 05/04/22 [Rx Last Taken Unknown] losartan 25 mg tablet 25 mg PO DAILY #30 tabs 05/13/22 [Rx Last Taken Unknown] furosemide 20 mg tablet (Lasix) 20 mg PO DAILY #30 tabs 06/01/22 [Rx Last Taken Unknown] risperidone 1 mg tablet 1 mg PO QHS anxiety #90 tabs 06/01/22 [Rx Last Taken Unknown] lidocaine 5 % topical patch 2 patch topical DAILY #30 ea 06/03/22 [Rx Last Taken Unknown] albuterol sulfate 90 mcg/actuation aerosol inhaler 2 puff inhalation Q6H PRN shortness of breath or wheezing #18 grams 07/24/22 [Rx Last Taken Unknown] budesonide 1 mg/2 mL suspension for nebulization 1 mg (2 mL) inhalation BID #60 mL 08/13/22 [Rx Last Taken Unknown] flash glucose sensor (FreeStyle Emily 2 Sensor kit) #2 ea 08/26/22 [Rx Last Taken Unknown] prednisone 10 mg tablet 10 mg PO DAILY #20 tabs 09/03/22 [Rx Last Taken Unknown] alprazolam 0.25 mg tablet 0.25 mg PO QHS #30 tabs 09/08/22 [Rx Last Taken Unknown] blood sugar diagnostic (True Metrix Glucose Test Strip) #100 ea 09/11/22 [Rx Last Taken Unknown] blood-glucose meter (True Metrix Glucose Meter) #1 ea 09/11/22 [Rx Last Taken Unknown] Allergy/AdvReac Type Severity Reaction Status Date / Time amoxicillin [Amoxicillin] Allergy Intermediate Rash Verified 09/23/22 18:49 hydrocodone Allergy Intermediate SWELLING Verified 09/23/22 18:49 gabapentin [From Neurontin] Allergy Shortness Verified 09/23/22 18:49 of breath levofloxacin [From Levaquin] Allergy Hives Verified 09/23/22 18:49 pseudoephedrine HCl Allergy Shortness Verified 09/23/22 18:49 [From Sudafed] of breath red dye Allergy Hives Verified 09/23/22 18:49 prednisone AdvReac Severe mean mood Verified 09/23/22 18:49 codeine AdvReac HEADACHE Verified 09/23/22 18:49 Family History Brother Heart disease Mother Colon cancer Heart disease Surgical History History of cholecystectomy History of coronary artery stent placement History of left heart catheterization (LHC) (~09/23/20) Hx of CABG Stented coronary artery (12/28/18) Social History Smoking Status: Former smoker pack-years: 40 how long ago did patient quit smokin year ago alcohol intake: never substance use type: does not use caffeine: Yes Type: carbonated beverages and tea what type of physical activity do you participate in: none ROS ROS ED Constitutional Constitutional ED: Reports chills and fever(s) Eyes Eyes: Denies change in vision ENT ENT ED: Denies rhinorrhea or sore throat Cardiovascular Cardiovascular: Reports chest pain; Denies palpitations or racing heartbeat Respiratory/Chest Respiratory/Chest: Reports cough, dyspnea and sputum Gastrointestinal Gastrointestinal: Denies nausea or vomiting Genitourinary Genitourinary ED: Denies dysuria Musculoskeletal Musculoskeletal: Denies myalgias Integumentary Denies rash Neurologic Neurologic: Denies headache(s) Psychiatric Psychiatric: Reports anxiety Endocrine Endocrinology: Denies polydipsia or polyuria Hematologic/Lymphatic Hematologic/Lymphatic: Denies easy bleeding or easy bruising Allergic/Immunologic Allergic/Immunologic ED: Denies urticaria EXAM Physical Exam Narrative Exam Narrative: Patient is sitting in bed. She is carrying on normal conversation. She is not toxic. Saturations are good. HEENT: Mucous membranes are moist Eyes: No significant injection. No icterus. Neck does show a thickened neck possibly due to steroid use a bit. Cannot ascertain JVD Lungs show poor air motion diffusely. No pain with a deep breath. But she does have some pain with palpation of lateral rib cage which is the area that hurts when she coughs. No subcu air. Heart is regular. I am not able to hear any murmur. However she does have difficult to hear heart tones with her breathing. Abdomen: Obese but nontender Extremities show no significant tenderness swelling or asymmetry. Neuro patient is alert oriented not at all sleepy or lethargic. Const Vital Signs: 09/23/22 18:46 09/23/22 18:53 09/23/22 19:14 Temperature 97 F L Temperature Source Temporal Pulse Rate 74 71 Respiratory Rate 16 22 H Respiratory Effort Short of Breath Blood Pressure 177/53 H 111/78 Blood Pressure Mean 94 89 Pulse Ox 100 99 Oxygen Delivery Method Nasal Cannula Nasal Cannula Oxygen Flow Rate (L/min) 4 4 09/23/22 19:51 09/23/22 22:06 09/23/22 20:30 Temperature Temperature Source Pulse Rate 65 75 77 Respiratory Rate 30 H 20 H 22 H Respiratory Effort Blood Pressure 159/77 H 107/61 Blood Pressure Mean 104 76 Pulse Ox 98 98 Oxygen Delivery Method Nasal Cannula Nasal Cannula Oxygen Flow Rate (L/min) 4 4 09/23/22 21:00 Temperature Temperature Source Pulse Rate 74 Respiratory Rate 30 H Respiratory Effort Blood Pressure 150/61 H Blood Pressure Mean 90 Pulse Ox 98 Oxygen Delivery Method Nasal Cannula Oxygen Flow Rate (L/min) 4 MDM MDM MDM Narrative Medical decision making narrative: My independent interpretation of the patient's single AP chest x-ray shows borderline cardiomegaly and possible small left effusion. But when I look at old films it does not look markedly different. Radiology reading shows possible minimal left effusion and basilar atelectasis. Patient CBC shows normal white count. Minimally low hemoglobin. Platelets are normal. Sodium potassium are minimally low and should self correct. Renal function is normal. Glucose is mildly high at 196. Troponin is negative despite several days of symptoms. BNP is not notably elevated. Lactate is negative. Patient's had normal vitals her whole time here. She did get dyspneic once but she was hyperventilating and anxious. She was able to be talked through this and her symptoms resolved. She also feels as though she needs to belch. She tried drinking Coke that got a small burp and helped her somewhat but not completely. She states sometimes she will take omeprazole for this. I offered her pantoprazole which she accepted. She does have significant COPD. She may be having a mild exacerbation. She would prefer not to be on prednisone because she states it makes her angry. I stated we can try a dose of Decadron. Patient is not tachycardic tachypneic or hypoxic. She has pain with coughing. She has bilateral rib pain. This improves with a belch. I do not think she needs CTA of the chest. I think she is stable for discharge. Certainly she has significant disease and may worsen or develop new illness in the future. We did discuss reasons to return. Lab Data Attestation: I reviewed the patient's lab results. Labs: Laboratory Results - last 24 hr 09/23/22 09/23/22 09/23/22 19:30 19:30 19:30 WBC 10.2 RBC 3.97 L Hgb 11.8 L Hct 36.4 L MCV 91.7 MCH 29.7 MCHC 32.4 RDW Std Deviation 39.5 RDW Coeff of [place] 11.7 Plt Count 273 MPV 11.4 Immature Gran % (Auto) 0.500 Neut % (Auto) 75.3 H Lymph % (Auto) 16.4 L [place] % (Auto) 6.1 Eos % (Auto) 1.1 Baso % (Auto) 0.6 Absolute Neuts (auto) 7.7 Absolute Lymphs (auto) 1.66 Nucleated RBC % 0 Sodium 132 L Potassium 3.4 L Chloride 89 L Carbon Dioxide 32.0 Anion Gap 11 BUN 11 Creatinine 0.89 Estim Creat Clear Calc 45.85 Est GFR (MDRD) Af Amer 81 Est GFR (MDRD) Non-Af 67 BUN/Creatinine Ratio 12.4 Glucose 196 H Lactic Acid 1.4 Calcium 9.1 Troponin I High Sens 8 B-Natriuretic Peptide 09/23/22 19:30 WBC RBC Hgb Hct MCV MCH MCHC RDW Std Deviation RDW Coeff of [place] Plt Count MPV Immature Gran % (Auto) Neut % (Auto) Lymph % (Auto) [place] % (Auto) Eos % (Auto) Baso % (Auto) Absolute Neuts (auto) Absolute Lymphs (auto) Nucleated RBC % Sodium Potassium Chloride Carbon Dioxide Anion Gap BUN Creatinine Estim Creat Clear Calc Est GFR (MDRD) Af Amer Est GFR (MDRD) Non-Af BUN/Creatinine Ratio Glucose Lactic Acid Calcium Troponin I High Sens B-Natriuretic Peptide 105.9 H Radiography Diagnostic Testing: Clinical Impression(s) from Imaging Studies Chest X-Ray 09/23/22 20:25 IMPRESSION: Possible minimal left effusion and basilar atelectasis. Electronically Signed: Rojelio Quinonez DO at 21:16 EST Reading Location ID and State: [facility] / [place] Tel [phone], Service support , EKG Initial EKG: Comments: My independent interpretation of the EKG done for chest pain and dyspnea shows what is read as a accelerated junctional rhythm. However, I believe I do see a P wave with normal NV interval. Therefore this does appear to be a sinus rhythm. It is regular. There is a lot of baseline and motion artifact. I do not see any ectopy. Despite the artifact, I am seeing no consistent ST elevation or depression. NV interval, QRS duration and QTc look normal. Discharge Plan Triage Chief Complaint: Chest Pain ED Provider: Sandeep Fong Dx/Rx/DC Orders Clinical Impression: COPD exacerbation, History of chest pain Instructions: ED COPD Flare Prescriptions: No Action (DME) Handicap Placard See Rx Instructions .ROUTE .MEDSUPPLY Qty: 1 0RF Rx Instructions: As directed, length of time 3 years insulin lispro [Humalog KwikPen Insulin] 100 unit/mL insulin pen 17 unit SC TID 90 Days Qty: 45.9 3RF Rx Instructions: Hold if glucose less than 130 mg/dl lidocaine 5 % adhesive patch,medicated 2 patch topical DAILY Qty: 30 3RF Rx Instructions: leave on most painful area for up to 12 hrs tizanidine 2 mg tablet 2 mg PO HS PRN (Reason: muscle spasticity) Qty: 30 0RF pantoprazole 40 mg tablet,delayed release (DR/EC) 40 mg PO DAILY Qty: 90 1RF budesonide 1 mg/2 mL suspension for nebulization 1 mg inhalation BID Qty: 60 6RF prednisone 10 mg tablet 10 mg PO DAILY Qty: 20 0RF Rx Instructions: Take 4 tabs daily for 5 days insulin glargine [Basaglar KwikPen U-100 Insulin] 100 unit/mL (3 mL) insulin pen 36 unit subcut DAILY Rx Instructions: daily at bedtime isosorbide mononitrate 60 mg tablet extended release 24 hr 60 mg PO DAILY acetaminophen 500 MG tablet 500 mg PO QHS Rx Instructions: over the counter. no prescription required. nitroglycerin 0.4 mg tablet, sublingual 0.4 mg SUBLINGUAL Q5-15M PRN (Reason: Pain) (DME) Bubbli Emily 2 [place] [facility] See Rx Instructions .ROUTE .MEDSUPPLY Qty: 1 0RF Rx Instructions: As directed citalopram 40 mg tablet 40 mg PO QHS Qty: 90 1RF clopidogrel 75 mg tablet 75 mg PO DAILY Qty: 90 3RF bisacodyl [Dulcolax (bisacodyl)] 5 mg tablet,delayed release (DR/EC) 5 mg PO QHS PRN (Reason: constipation) 30 Days Qty: 30 3RF atorvastatin 80 mg tablet 80 mg PO QHS Qty: 90 3RF ipratropium-albuterol 0.5 mg-3 mg(2.5 mg base)/3 mL solution for nebulization 3 ml INHALATION Q4H PRN PRN (Reason: SOB &/OR WHEEZING) Qty: 180 6RF (DME) pen needle, diabetic 32 gauge x 5/32 needle See Rx Instructions .ROUTE .MEDSUPPLY Qty: 50 0RF Rx Instructions: 4x/day metoprolol tartrate 25 mg tablet 12.5 mg PO BID Qty: 90 3RF Rx Instructions: losartan 25 mg tablet 25 mg PO DAILY Qty: 30 11RF furosemide [Lasix] 20 mg tablet 20 mg PO DAILY Qty: 30 11RF risperidone 1 mg tablet 1 mg PO QHS Qty: 90 1RF albuterol sulfate 90 mcg/actuation HFA aerosol inhaler 2 puff INHALATION Q6H PRN (Reason: shortness of breath or wheezing) Qty: 18 3RF (DME) FreeStyle Emily 2 Sensor Kit See Rx Instructions .ROUTE .MEDSUPPLY Qty: 2 3RF Rx Instructions: As directed alprazolam 0.25 mg tablet 0.25 mg PO QHS Qty: 30 0RF (DME) blood-glucose meter [True Metrix Glucose Meter] Misc See Rx Instructions .Route Qty: 1 0RF Rx Instructions: As directed (DME) True Metrix Glucose Test Strip Strip See Rx Instructions .Route Qty: 100 7RF Rx Instructions: tid Primary Care Provider: Billy Madera Referrals: Billy Madera MD [Primary Care Provider] - 3-5 Days if not improving Disposition Disposition: Home, Self Care
[2022-09-23] MEDS: MethylPREDNISolone 125 MG/2 ML Vial IV (19:42)
[2022-09-23 19:43] LABS: Absolute Lymphocyte Count 1.66 X10^3/uL (0.83-4.51); Absolute Neutrophil Count 7.7 X10^3/uL (2.0-7.7); Basophil# 0.06 X10^3/uL; Basophil% 0.6 % (0-1); Eosinophil# 0.11 X10^3/uL; Eosinophils% 1.1 % (0-5); Hematocrit 36.4 % (37-47); Hemoglobin 11.8 g/dL (12.0-15.0); Lymphocyte # 1.66 X10^3/ul (0.83-4.51); Lymphocyte % 16.4 % (19-41); Mean Corp Hgb Conc 32.4 g/dL (32-36); Mean Corpuscular Hgb 29.7 pg (27.0-32.0); Mean Corpuscular Volume 91.7 fL (81-99); Mean Platelet Vol. 11.4 fl (6.2-12.0); Monocyte# 0.62 X10^3/uL; Monocyte% 6.1 % (0-10); NRBC Flagged by Analyzer 0 % (0-5); Neutrophil # 7.65 X10^3/uL (2.7-7.7); Neutrophil % 75.3 % (47-70); Platelet Count 273 K/mm3 (150-450); RBC Distribution Width CV 11.7 % (11.6-14.6); RBC Distribution Width SD 39.5 fl (35.1-43.9); Red Blood Count 3.97 M/mm3 (4.2-5.4); White Blood Count 10.2 K/mm3 (4.4-11.0)
[2022-09-23] MEDS: Ipratropium/Albuterol Sulfate 3 ML AMPUL.NEB INHALATION (19:53)
[2022-09-23] MEDS: Albuterol 2.5 MG/3 ML VIAL.NEB. INHALATION (19:53)
[2022-09-23 20:01] LABS: Anion Gap 11 (5-15); BUN 11 mg/dL (7-18); BUN/Creat Ratio 12.4 RATIO (10-20); Calcium,Total 9.1 mg/dL (8.5-10.1); Chloride 89 mmol/L (98-107); Creatinine, Serum 0.89 mg/dL (0.55-1.02); EST Glomerular Filtration Rate 67 mL/min (>60); Est Glom Filt Rate - Afr Amer 81 mL/min (>60); Estimated Creatinine Clearance 45.85 ml/min; Glucose 196 mg/dL (74-106); Lactic Acid 1.4 mmol/L (0.4-1.9); Potassium 3.4 mmol/L (3.5-5.1); Sodium Level 132 mmol/L (136-145); Troponin-I HS 8 pg/mL (3.0-54.0)
[2022-09-23 20:15] LABS: BNP,B-Type NATRIURETIC PEPTIDE 105.9 pg/mL (0-100)
--- NOTE | 2022-09-23 20:25 | RAD_ITS ---
INDICATION: cough EXAMINATION/TECHNIQUE: X-RAY - XR Chest 1 View COMPARISON: September 01, 2022. FINDINGS: LINES/DEVICES: None. LUNGS: Possible minimal left effusion and basilar atelectasis. No pneumothorax. MEDIASTINUM AND CARDIOVASCULAR STRUCTURES: Cardiac silhouette not enlarged. Central airways and mediastinal contour are unremarkable. BONES AND SOFT TISSUES: Unremarkable. RAD/Chest 1 View (Portable) IMPRESSION: Possible minimal left effusion and basilar atelectasis. Electronically Signed: Rojelio Quinonez DO at 21:16 EST ,
[2022-09-23] MEDS: dexAMETHasone 10 MG/ML Vial IV (22:53)
--- NOTE | 2022-09-23 23:20 | NURSING ---
PT WILL GO HOME [facility] ETA- [id number]
--- NOTE | 2022-09-24 01:11 | NURSING ---
[facility] FOR AN UPDATED ETA IT IS NOW [id number]
== END 2022-09-24 03:15 | disposition home or self-care (01) ==
PROVIDERS: Emergency Provider Emergency Medicine; PCP Internal Medicine; Visit Provider Emergency Medicine
DX: J44.1 Chronic obstructive pulmonary disease with (acute) exacerbation (principal); I50.9 Heart failure, unspecified; I11.0 Hypertensive heart disease with heart failure; E11.65 Type 2 diabetes mellitus with hyperglycemia; E78.5 Hyperlipidemia, unspecified; Z87.891 Personal history of nicotine dependence; I25.10 Atherosclerotic heart disease of native coronary artery without angina pectoris; Z79.52 Long term (current) use of systemic steroids; Z99.81 Dependence on supplemental oxygen; Z79.02 Long term (current) use of antithrombotics/antiplatelets
CPT/HCPCS: 71045; 80048; 83605; 83880; 84484; 85025; 87040; 87428; 93005; 94640; 96365; 96375; 99285; J3490

== ENCOUNTER 2022-10-15 02:14 | Emergency (ER) | payer MEDICARE, SELFPAY ==
[2021-11-03 12:08] VITALS: BMI 34.9
[2022-10-15] VITALS (8 sets, daily range): BP systolic 167–194; BP diastolic 50–84; PULSE 65–100; RESP 16–30; TEMP 36.4–36.8; O2SAT 98–100; BMI 40.6
--- NOTE | 2022-10-15 02:25 | EKG12_ITS ---
Test Reason : CP/SOB Blood Pressure : / mmHG Vent. Rate : 065 BPM Atrial Rate : 065 BPM P-R Int : 166 ms QRS Dur : 082 ms QT Int : 412 ms P-R-T Axes : 034 017 054 degrees QTc Int : 428 ms Normal sinus rhythm Normal ECG Confirmed by BANG MELVIN, ROSALIA ([id number]), state editor JAVIER COLBY ([id number]) on 10/20/2022 11:00:26 AM Referred By: STEPHANIE Confirmed By:ROSALIA CUENCA MD
--- NOTE | 2022-10-15 03:06 | RAD_ITS ---
EXAM: XR CHEST, 1 VIEW CLINICAL INDICATION: shortness of breath TECHNIQUE: Frontal view of the chest. This report was created using [employer] report generation technology. COMPARISON: September 23, 2022. Early exams back to January 28, 2022. FINDINGS: LUNGS AND PLEURAL SPACES: Similar blunting of the left lateral costophrenic angle compared to multiple prior exams, likely scarring. Similar appearance of mild increased linear markings in the medial right lung base. Slight increased haziness in the central right lung base compared to most recent and earlier but it appears similar to May 14, 2022. Right hemidiaphragm remains well seen. No definite infiltrates. No pneumothorax. HEART: Stable heart size, within normal limits. MEDIASTINUM: Mild peripheral calcification of the aortic arch is unchanged. No evidence of aortic enlargement. No mediastinal widening. BONES/JOINTS: Unremarkable. SOFT TISSUES: Unremarkable. RAD/Chest 1 View (Portable) IMPRESSION: No definite acute findings. Bibasilar presumed chronic parenchymal lung base changes and pleural-parenchymal scarring, greater on the left. Electronically Signed: Rabia Nguyen MD at 4:21 EST ,
[2022-10-15 03:17] LABS: Absolute Lymphocyte Count 2.05 X10^3/uL (0.83-4.51); Absolute Neutrophil Count 6.4 X10^3/uL (2.0-7.7); Basophil# 0.08 X10^3/uL; Basophil% 0.9 % (0-1); Eosinophil# 0.18 X10^3/uL; Eosinophils% 1.9 % (0-5); Hematocrit 35.9 % (37-47); Hemoglobin 11.8 g/dL (12.0-15.0); Lymphocyte # 2.05 X10^3/ul (0.83-4.51); Lymphocyte % 22.1 % (19-41); Mean Corp Hgb Conc 32.9 g/dL (32-36); Mean Corpuscular Hgb 29.7 pg (27.0-32.0); Mean Corpuscular Volume 90.4 fL (81-99); Mean Platelet Vol. 11.2 fl (6.2-12.0); Monocyte# 0.55 X10^3/uL; Monocyte% 5.9 % (0-10); NRBC Flagged by Analyzer 0 % (0-5); Neutrophil # 6.39 X10^3/uL (2.7-7.7); Neutrophil % 68.9 % (47-70); Platelet Count 269 K/mm3 (150-450); RBC Distribution Width SD 39.3 fl (35.1-43.9); Red Blood Count 3.97 M/mm3 (4.2-5.4); White Blood Count 9.3 K/mm3 (4.4-11.0)
[2022-10-15] MEDS: MethylPREDNISolone 125 MG/2 ML Vial IV (03:27)
[2022-10-15] MEDS: Ipratropium/Albuterol Sulfate 3 ML AMPUL.NEB INHALATION (03:28)
[2022-10-15 03:34] LABS: BNP,B-Type NATRIURETIC PEPTIDE 81.2 pg/mL (0-100)
[2022-10-15 03:36] LABS: Anion Gap 7 (5-15); BUN 9 mg/dL (7-18); Calcium,Total 9.5 mg/dL (8.5-10.1); Chloride 100 mmol/L (98-107); Creatinine, Serum 0.75 mg/dL (0.55-1.02); EST Glomerular Filtration Rate 81 mL/min (>60); Est Glom Filt Rate - Afr Amer 98 mL/min (>60); Estimated Creatinine Clearance 40.81 ml/min; Glucose 146 mg/dL (74-106); Potassium 4.4 mmol/L (3.5-5.1); Sodium Level 137 mmol/L (136-145)
--- NOTE | 2022-10-15 04:56 | EX.ED.DYSGE1 ---
HPI History of Present Illness Chief Complaint: Shortness of Breath Narrative Narrative: Patient is a 72-year-old female with past medical history of COPD on chronically 4 L of nasal cannula oxygen as well as type 2 diabetes and congestive heart failure. Patient states that she ate soy sauce this evening and then after doing so felt she was having increased work of breathing that was not responding to her increase in her oxygen level to 6 L. Secondary to this she called EMS. Patient denies any fevers or chills or any recent sick contacts or chest pain associated with this. She states she does have a history of pneumonia and has concern for that once again and therefore presents for evaluation [facility] Medical History Anemia Anxiety and depression Asthma Asthma with COPD Atherosclerotic heart disease of [place] coronary artery without angina pectoris Back pain Bilateral pneumonia CHF (congestive heart failure) Chronic back pain Chronic respiratory failure Constipation COPD (chronic obstructive pulmonary disease) Depression Diabetes Flu vaccine need Former smoker Health care maintenance Heart disease Hepatitis History of constipation HLD (hyperlipidemia) Hypertension Lung disease On home oxygen therapy MARK (obstructive sleep apnea) Pneumonia Psoriasis Smoking greater than 40 pack years SOB (shortness of breath) Thyroid nodule Type 2 diabetes mellitus Home Medications Handicap Placard #1 ea 12/12/20 [Rx Last Taken Unknown] flash glucose scanning reader ([employer] Emily 2 [place]) #1 ea 01/31/21 [Rx Last Taken Unknown] citalopram 40 mg tablet 40 mg PO QHS depression #90 tabs 07/23/21 [Rx Last Taken 08/08/21] insulin lispro 100 unit/mL subcutaneous pen (Humalog KwikPen (U-100) Insulin) 17 unit (0.17 mL) subcut TID diabetes 3 months #45.9 mL 08/19/21 [Rx Last Taken Unknown] insulin glargine 100 unit/mL (3 mL) subcutaneous pen (Basaglar KwikPen U-100 Insulin) 36 unit subcut DAILY diabetic managment 10/12/21 [History Last Taken Unknown] acetaminophen 500 mg tablet 500 mg PO QHS 10/21/21 [History Last Taken Unknown] bisacodyl 5 mg tablet,delayed release (Dulcolax (bisacodyl)) 5 mg PO QHS PRN constipation 30 days #30 tabs 04/07/22 [Rx Last Taken Unknown] atorvastatin 80 mg tablet 80 mg PO QHS #90 tabs 12/10/21 [Rx Last Taken Unknown] nitroglycerin 0.4 mg sublingual tablet 0.4 mg sublingual Q5-15M PRN Pain 01/20/22 [History Last Taken Unknown] ipratropium 0.5 mg-albuterol 3 mg (2.5 mg base)/3 mL nebulization soln 3 ml inhalation Q4H PRN PRN SOB &/OR WHEEZING #180 mL 02/11/22 [Rx Last Taken Unknown] pen needle, diabetic 32 gauge x #50 ea 02/11/22 [Rx Last Taken Unknown] pantoprazole 40 mg tablet,delayed release 40 mg PO DAILY #90 tabs 04/24/22 [Rx Last Taken Unknown] tizanidine 2 mg tablet 2 mg PO HS PRN muscle spasticity #30 tabs 04/24/22 [Rx Last Taken Unknown] metoprolol tartrate 25 mg tablet 12.5 mg PO BID #90 tabs 05/04/22 [Rx Last Taken Unknown] losartan 25 mg tablet 25 mg PO DAILY #30 tabs 05/13/22 [Rx Last Taken Unknown] furosemide 20 mg tablet (Lasix) 20 mg PO DAILY #30 tabs 06/01/22 [Rx Last Taken Unknown] risperidone 1 mg tablet 1 mg PO QHS anxiety #90 tabs 06/01/22 [Rx Last Taken Unknown] lidocaine 5 % topical patch 2 patch topical DAILY #30 ea 06/03/22 [Rx Last Taken Unknown] albuterol sulfate 90 mcg/actuation aerosol inhaler 2 puff inhalation Q6H PRN shortness of breath or wheezing #18 grams 07/24/22 [Rx Last Taken Unknown] budesonide 1 mg/2 mL suspension for nebulization 1 mg (2 mL) inhalation BID #60 mL 08/13/22 [Rx Last Taken Unknown] flash glucose sensor (FreeStyle Emily 2 Sensor kit) #2 ea 08/26/22 [Rx Last Taken Unknown] prednisone 10 mg tablet 10 mg PO DAILY #20 tabs 09/03/22 [Rx Last Taken Unknown] blood sugar diagnostic (True Metrix Glucose Test Strip) #100 ea 09/11/22 [Rx Last Taken Unknown] blood-glucose meter (True Metrix Glucose Meter) #1 ea 09/11/22 [Rx Last Taken Unknown] clopidogrel 75 mg tablet 75 mg PO DAILY #90 tabs 10/01/22 [Rx Last Taken Unknown] isosorbide mononitrate 60 mg tablet,extended release 24 hr 60 mg PO DAILY BP #90 tabs 10/01/22 [Rx Last Taken Unknown] alprazolam 0.25 mg tablet 0.25 mg PO QHS #30 tabs 10/08/22 [Rx Last Taken Unknown] fluticasone furoate 100 mcg-vilanterol 25 mcg/dose inhalation powder (Breo Ellipta) 1 inh inhalation DAILY #60 ea 10/15/22 [Rx Last Taken Unknown] Allergy/AdvReac Type Severity Reaction Status Date / Time amoxicillin [Amoxicillin] Allergy Intermediate Rash Verified 10/15/22 02:23 hydrocodone Allergy Intermediate SWELLING Verified 10/15/22 02:23 gabapentin [From Neurontin] Allergy Shortness Verified 10/15/22 02:23 of breath levofloxacin [From Levaquin] Allergy Hives Verified 10/15/22 02:23 pseudoephedrine HCl Allergy Shortness Verified 10/15/22 02:23 [From Sudafed] of breath red dye Allergy Hives Verified 10/15/22 02:23 prednisone AdvReac Severe mean mood Verified 10/15/22 02:23 codeine AdvReac HEADACHE Verified 10/15/22 02:23 Family History Brother Heart disease Mother Colon cancer Heart disease Surgical History History of cholecystectomy History of coronary artery stent placement History of left heart catheterization (LHC) (~09/23/20) Hx of CABG Stented coronary artery (12/28/18) Social History Smoking Status: Former smoker pack-years: 40 how long ago did patient quit smokin year ago alcohol intake: never substance use type: does not use caffeine: Yes Type: carbonated beverages and tea what type of physical activity do you participate in: none ROS ROS ED Constitutional Constitutional ED: Denies chills or fever(s) ENT ENT ED: Denies sore throat Cardiovascular Cardiovascular: Denies chest pain Respiratory/Chest Respiratory/Chest: Reports cough and dyspnea Gastrointestinal Gastrointestinal: Denies abdominal pain, diarrhea, nausea or vomiting Genitourinary Genitourinary ED: Reports urinary frequency; Denies dysuria Musculoskeletal Musculoskeletal: Denies myalgias Integumentary Denies rash Neurologic Neurologic: Denies headache(s) Hematologic/Lymphatic Hematologic/Lymphatic: Denies easy bleeding or easy bruising EXAM Physical Exam Const Vital Signs: 10/15/22 02:15 10/15/22 02:20 10/15/22 02:29 Temperature 97.6 F L 97.6 F L Temperature Source Temporal Temporal Pulse Rate 70 71 67 Respiratory Rate 30 H 28 H 30 H Respiratory Pattern Blood Pressure 194/64 H 194/64 H Blood Pressure Mean 107 107 Pulse Ox 100 100 99 Oxygen Delivery Method Non-Rebreather Non-Rebreather Nasal Cannula Oxygen Flow Rate (L/min) 15 15 6 10/15/22 03:22 10/15/22 03:22 10/15/22 03:45 Temperature 97.8 F Temperature Source Temporal Pulse Rate 100 65 Respiratory Rate 16 17 26 H Respiratory Pattern Tachypnea Blood Pressure 188/60 H Blood Pressure Mean 102 Pulse Ox 99 98 Oxygen Delivery Method Room Air Room Air Oxygen Flow Rate (L/min) 10/15/22 04:00 10/15/22 04:00 Temperature 98.2 F Temperature Source Temporal Pulse Rate 66 66 Respiratory Rate 30 H 30 H Respiratory Pattern Blood Pressure 167/50 H 167/50 H Blood Pressure Mean 89 89 Pulse Ox 100 100 Oxygen Delivery Method Nasal Cannula Nasal Cannula Oxygen Flow Rate (L/min) 4 4 Positive well nourished, well developed and obese General Appearance ED: well developed Nutritional Appearance: obese HEENT Reports moist mucous membranes HEENT Narrative: No tongue or lip swelling no oral lesions no airway edema or compromise Eyes PERRL and EOMs intact bilaterally General Eye ED: Negative for pale conjunctiva Neck supple and No no JVD Neck Narrative: No nuchal rigidity or meningeal signs noted Resp normal respiratory effort Resp Narrative: No nasal flaring retractions tachypnea or accessory muscle use. Breath sounds are diminished throughout with faint rhonchi in the lower lobes greatest on the left Cardio regular rate and regular rhythm Rate: other Other Details: Radial pulses are plus 2 out of 4 bilaterally are equal and symmetric GI normal to inspection, nondistended, normoactive bowel sounds, non-tender, non-distended and no masses GI Narrative: No voluntary guarding or rigidity no pulsatile mass Auscultation: normoactive bowel sounds Palpation: soft Extremity Extremity Narrative: Trace to +1 pitting edema to the bilateral lower extremities that is equal and symmetric with negative Homans' sign bilaterally Neuro oriented x3 and CN's II-XII intact bilaterally Sensorium / Orientation: alert Psych mental status grossly normal Skin no rashes or lesions noted MDM MDM MDM Narrative Medical decision making narrative: Patient presented to the ER satting in the mid to high 90s on 6 L and had minimal work of breathing. With her history of CHF and COPD there is concern this is COPD exacerbation versus pneumonia versus CHF exacerbation or even secondary to anemia. Therefore a basic work-up was obtained. Blood work revealed no clinically significant findings and chest x-ray revealed chronic changes without acute infiltrate pleural effusion or pneumothorax. Patient was given IV steroids and a nebulizer treatment and her oxygen was turned down to 4 L which is her baseline oxygen value. After treatment patient's oxygen value will remain 98 to 100% on her 4 L and her work of breathing had improved as well. Therefore as work-up reveals no acute signs of infection or CHF exacerbation or anemia and she is at her baseline oxygen value there is no need for admission and she is otherwise safe for discharge. History & Record Review Discussion w/independent historian: EMS personnel and Patient Lab Data Attestation: I reviewed the patient's lab results. Labs: Laboratory Results - last 24 hr 10/15/22 10/15/22 10/15/22 02:35 02:35 02:35 WBC 9.3 RBC 3.97 L Hgb 11.8 L Hct 35.9 L MCV 90.4 MCH 29.7 MCHC 32.9 RDW Std Deviation 39.3 RDW Coeff of [place] 12.0 Plt Count 269 MPV 11.2 Immature Gran % (Auto) 0.300 Neut % (Auto) 68.9 Lymph % (Auto) 22.1 [place] % (Auto) 5.9 Eos % (Auto) 1.9 Baso % (Auto) 0.9 Absolute Neuts (auto) 6.4 Absolute Lymphs (auto) 2.05 Nucleated RBC % 0 Sodium 137 Potassium 4.4 Chloride 100 Carbon Dioxide 30.0 Anion Gap 7 BUN 9 Creatinine 0.75 Estim Creat Clear Calc 40.81 Est GFR (MDRD) Af Amer 98 Est GFR (MDRD) Non-Af 81 BUN/Creatinine Ratio 12.0 Glucose 146 H Calcium 9.5 B-Natriuretic Peptide 81.2 Radiography Diagnostic Testing: Clinical Impression(s) from Imaging Studies Chest X-Ray 10/15/22 03:06 IMPRESSION: No definite acute findings. Bibasilar presumed chronic parenchymal lung base changes and pleural-parenchymal scarring, greater on the left. Electronically Signed: Rabia Nguyen MD at 4:21 EST , Chest x-ray as interpreted by the emergency medicine physician reveals chronic changes to the left lung base consistent with parenchymal scarring without acute infiltrate pneumothorax or pleural effusion Discharge Plan Triage Chief Complaint: Shortness of Breath ED Provider: Marko Smith Dx/Rx/DC Orders Clinical Impression: Acute exacerbation of chronic obstructive pulmonary disease, Type 2 diabetes mellitus, CHF (congestive heart failure) Instructions: COPD: Wheezing and Chest Tightness Prescriptions: New fluticasone furoate-vilanterol [Breo Ellipta] 100-25 mcg/dose blister with device 1 inh inhalation DAILY Qty: 60 2RF No Action (DME) Handicap Placard See Rx Instructions .ROUTE .MEDSUPPLY Qty: 1 0RF Rx Instructions: As directed, length of time 3 years insulin lispro [Humalog KwikPen Insulin] 100 unit/mL insulin pen 17 unit SC TID 90 Days Qty: 45.9 3RF Rx Instructions: Hold if glucose less than 130 mg/dl lidocaine 5 % adhesive patch,medicated 2 patch topical DAILY Qty: 30 3RF Rx Instructions: leave on most painful area for up to 12 hrs tizanidine 2 mg tablet 2 mg PO HS PRN (Reason: muscle spasticity) Qty: 30 0RF pantoprazole 40 mg tablet,delayed release (DR/EC) 40 mg PO DAILY Qty: 90 1RF budesonide 1 mg/2 mL suspension for nebulization 1 mg inhalation BID Qty: 60 6RF prednisone 10 mg tablet 10 mg PO DAILY Qty: 20 0RF Rx Instructions: Take 4 tabs daily for 5 days insulin glargine [Basaglar KwikPen U-100 Insulin] 100 unit/mL (3 mL) insulin pen 36 unit subcut DAILY Rx Instructions: daily at bedtime acetaminophen 500 MG tablet 500 mg PO QHS Rx Instructions: over the counter. no prescription required. nitroglycerin 0.4 mg tablet, sublingual 0.4 mg SUBLINGUAL Q5-15M PRN (Reason: Pain) (DME) FreeStyle Emily 2 [place] [facility] See Rx Instructions .ROUTE .MEDSUPPLY Qty: 1 0RF Rx Instructions: As directed citalopram 40 mg tablet 40 mg PO QHS Qty: 90 1RF bisacodyl [Dulcolax (bisacodyl)] 5 mg tablet,delayed release (DR/EC) 5 mg PO QHS PRN (Reason: constipation) 30 Days Qty: 30 3RF atorvastatin 80 mg tablet 80 mg PO QHS Qty: 90 3RF ipratropium-albuterol 0.5 mg-3 mg(2.5 mg base)/3 mL solution for nebulization 3 ml INHALATION Q4H PRN PRN (Reason: SOB &/OR WHEEZING) Qty: 180 6RF (DME) pen needle, diabetic 32 gauge x 5/32 needle See Rx Instructions .ROUTE .MEDSUPPLY Qty: 50 0RF Rx Instructions: 4x/day metoprolol tartrate 25 mg tablet 12.5 mg PO BID Qty: 90 3RF Rx Instructions: losartan 25 mg tablet 25 mg PO DAILY Qty: 30 11RF furosemide [Lasix] 20 mg tablet 20 mg PO DAILY Qty: 30 11RF risperidone 1 mg tablet 1 mg PO QHS Qty: 90 1RF albuterol sulfate 90 mcg/actuation HFA aerosol inhaler 2 puff INHALATION Q6H PRN (Reason: shortness of breath or wheezing) Qty: 18 3RF (DME) FreeStyle Emily 2 Sensor Kit See Rx Instructions .ROUTE .MEDSUPPLY Qty: 2 3RF Rx Instructions: As directed (DME) blood-glucose meter [True Metrix Glucose Meter] [facility] [place] See Rx Instructions .Route Qty: 1 0RF Rx Instructions: As directed (DME) True Metrix Glucose Test Strip Strip See Rx Instructions .Route Qty: 100 7RF Rx Instructions: tid isosorbide mononitrate 60 mg tablet extended release 24 hr 60 mg PO DAILY Qty: 90 3RF clopidogrel 75 mg tablet 75 mg PO DAILY Qty: 90 3RF alprazolam 0.25 mg tablet 0.25 mg PO QHS Qty: 30 0RF Primary Care Provider: Billy Madera Referrals: Billy Madera MD [Primary Care Provider] - Activity Restrictions/Additional Instructions: Please begin taking the daily maintenance inhaler of Breo to help prevent exacerbations of your COPD. Continue all of your other medications as previously directed and return to the ER should you have any further concerns Disposition Disposition: Home, Self Care
--- NOTE | 2022-10-15 05:00 | NURSING ---
CALLED PHYSICIANS TO SET UP TRANSPORT TO HOME- SHE DOESN'T HAVE HER OXYGEN WITH HER. [facility] ETA IS [phone]
== END 2022-10-15 07:00 | disposition home or self-care (01) ==
PROVIDERS: Emergency Provider Emergency Medicine; PCP Internal Medicine; Visit Provider Emergency Medicine
DX: J44.1 Chronic obstructive pulmonary disease with (acute) exacerbation (principal); I11.0 Hypertensive heart disease with heart failure; I50.9 Heart failure, unspecified; E11.9 Type 2 diabetes mellitus without complications; Z87.891 Personal history of nicotine dependence; I25.10 Atherosclerotic heart disease of native coronary artery without angina pectoris; E78.5 Hyperlipidemia, unspecified; Z99.81 Dependence on supplemental oxygen; R35.0 Frequency of micturition; E66.9 Obesity, unspecified
CPT/HCPCS: 71045; 80048; 83880; 85025; 93005; 94640; 96374; 99284

== ENCOUNTER → 2022-11-16 | Outpatient (CLI) | payer MEDICARE, SELFPAY ==
[2021-11-03 12:08] VITALS: BMI 34.9
[2022-11-16 12:04] LABS: Absolute Lymphocyte Count 1.54 X10^3/uL (0.83-4.51); Absolute Neutrophil Count 5.4 X10^3/uL (2.0-7.7); Basophil# 0.08 X10^3/uL; Eosinophil# 0.21 X10^3/uL; Eosinophils% 2.7 % (0-5); Hematocrit 37.8 % (37-47); Hemoglobin 12.2 g/dL (12.0-15.0); Lymphocyte # 1.54 X10^3/ul (0.83-4.51); Lymphocyte % 19.8 % (19-41); Mean Corp Hgb Conc 32.3 g/dL (32-36); Mean Corpuscular Hgb 29.7 pg (27.0-32.0); Mean Platelet Vol. 10.8 fl (6.2-12.0); Monocyte# 0.55 X10^3/uL; Monocyte% 7.1 % (0-10); NRBC Flagged by Analyzer 0 % (0-5); Neutrophil # 5.37 X10^3/uL (2.7-7.7); Neutrophil % 68.9 % (47-70); Platelet Count 301 K/mm3 (150-450); RBC Distribution Width SD 40.6 fl (35.1-43.9); Red Blood Count 4.11 M/mm3 (4.2-5.4); White Blood Count 7.8 K/mm3 (4.4-11.0)
[2022-11-16 12:41] LABS: ALB/GLOB Ratio 1.1 RATIO (0.9-2.4); AST(SGOT) 17 U/L (15-37); Alanine Aminotransfer ALT/SGPT 25 U/L (13-56); Albumin, Serum 3.6 g/dL (3.2-5.0); Alkaline Phosphatase 99 U/L (45-117); Anion Gap 3 (5-15); BUN 8 mg/dL (7-18); BUN/Creat Ratio 9.2 RATIO (10-20); Calcium,Total 9.4 mg/dL (8.5-10.1); Chloride 99 mmol/L (98-107); Creatinine, Serum 0.87 mg/dL (0.55-1.02); EST Glomerular Filtration Rate 68 mL/min (>60); Est Glom Filt Rate - Afr Amer 83 mL/min (>60); Globulin 3.3 g/dL (2.2-4.2); Glucose 190 mg/dL (74-106); Potassium 4.1 mmol/L (3.5-5.1); Protein, Total 6.9 g/dL (6.4-8.2); Sodium Level 132 mmol/L (136-145); Thyroid Stim Hormone (TSH) 4.17 uIU/mL (0.358-3.74)
[2022-11-16 13:38] LABS: Hemoglobin A1c 9.3 % (3.8-5.6)
[2022-11-18 11:18] LABS: Thyroid Peroxidase AB < 9 IU/mL (0-34)
== END | disposition home or self-care (01) ==
LOC: BIMLAB 09:21
PROVIDERS: PCP Internal Medicine; Referring Provider Internal Medicine; Visit Provider Internal Medicine
DX: R14.0 Abdominal distension (gaseous) (principal); E11.65 Type 2 diabetes mellitus with hyperglycemia; Z79.4 Long term (current) use of insulin; F41.9 Anxiety disorder, unspecified; F32.A Depression, unspecified; E04.1 Nontoxic single thyroid nodule
CPT/HCPCS: 36415; 80053; 83036; 84439; 84443; 85025; 86376

== ENCOUNTER → 2022-12-16 | Outpatient (CLI) | payer MEDICARE, SELFPAY ==
[2021-11-03 12:08] VITALS: BMI 34.9
--- NOTE | 2022-12-16 14:23 | CT_ITS ---
STUDY: LOW DOSE CT LUNG CANCER SCREENING REASON FOR EXAM: Female, 72 years old. Smoker and gt; 40 pack years RADIATION DOSAGE (If Supplied By Facility): CTDIvol = ( 4.02 ) mGy, DLP = ( 129.89 ) mGycm TECHNIQUE: No contrast was administered. Low dose technique was utilized (average mAS-38 and kVp 120). 1.25 mm axial source images with a slice interval of 1.25-mm were reconstructed in lung windows. 2.5 mm axial source images with a slice interval of 2.5-mm were reconstructed in lung windows. 5.0 mm axial source images with a slice interval of 5.0-mm were reconstructed in soft tissue windows. COMPARISON: Comparison is made with prior study dated January 15, 2021 and August 10, 2021. NODULES: Stable tiny granuloma in the medial aspect of the right upper lobe. A calcified granuloma is also seen in the inferior medial aspect of the right upper lobe. Emphysema: Mild scarring at the lung bases as well as the anterior lateral aspect of the lingular segment of the left upper lobe. Endobronchial lesion: None Aorta: Calcified atherosclerotic plaques. CORONARY ARTERIES: Coronary artery calcification is seen. Heart: Unremarkable. Pulmonary artery: Unremarkable. Mediastinal nodes: Small mediastinal lymph nodes. Other chest and abdominal findings: CT/Low Dose CT Lung Screening IMPRESSION: Lung-RADS category 2 - Continue annual screening with LDCT in 12 months. IMPORTANT NOTES FOR USE: ACR Lung-RADS Version 1.1 Assessment Categories Release Date: 2018 Category: Coded 0-4 bases on nodule(s) with highest degree of suspicion. Negative screen is defined as categories 1 and 2; a positive screen is defined as categories 3 and 4. Category 3 and 4A nodules that are unchanged on interval CT should be coded as category 2, and individuals returned to screening in 12 months. Category 4X: Category 3 or 4 nodules with additional imaging findings that increase the suspicion of lung cancer, such as spiculation, GGN that doubles in size in 1 year, enlarged lymph notes, etc. Category Modifiers: S (significant finding unrelated to lung cancer) Electronically Signed: Bruce Lubin MD at 9:14 EDT ,
--- NOTE | 2022-12-16 14:23 | US_ITS ---
EXAM: US SOFT TISSUES HEAD AND NECK, THYROID CLINICAL INDICATION: FU Thyroid nodules TECHNIQUE: Greyscale and color doppler imaging was performed of the thyroid gland. COMPARISON: May 30, 2021 FINDINGS: Multiple small cystic areas bilaterally involving the thyroid parenchyma. Recommend lobe measures 5.3 x 1.9 x 1.8 cm heterogeneous appearance to 3 nodules were measured. Nodule 1 cm cystic measuring up to 1.1 cm, located at the upper pole. This appears to be new. Nodule to persist solid/cystic measuring up to 1.1, located at the interpolar level. This is stable. Nodule 3 appears solid and cystic and measures up to 1.8 cm, located at the lower pole. This is stable. Left thyroid lobe measures 4.4 x 1.2 x 1.7 cm and is heterogeneous appearance. There is a cystic nodule at the upper pole measuring 4 mm. There is a solid-appearing nodule at the lower pole measuring 8 mm. These appear unchanged from the prior study. No hypervascularity of the thyroid parenchyma. Numerous additional small cystic areas bilaterally were not visualized. Thyroid isthmus measures 5 mm. US/Thyroid IMPRESSION: 1. Unchanged right thyroid nodules at the interpolar (1.1 cm, TR3) and lower pole level (1.8 cm, TR3). These are mildly suspicious. Fine-needle aspiration is recommended only if these measure greater than or equal to 2.5 cm; these can be followed. If they measure greater than or equal to 1.5 cm with follow-up to occur at 1, 3 and 5 year intervals. 2. New anechoic cystic nodule measuring 1.1 cm is located at the upper pole and is consider benign. 3. Unchanged subcentimeter left thyroid nodules. Electronically Signed: Marko Norton MD at 2:50 EDT ,
== END | disposition home or self-care (01) ==
LOC: CT 14:21
PROVIDERS: PCP Internal Medicine; Referring Provider Nurse Practitioner Acute Care; Visit Provider Nurse Practitioner Acute Care
DX: E04.1 Nontoxic single thyroid nodule (principal); F17.210 Nicotine dependence, cigarettes, uncomplicated
CPT/HCPCS: 71271; 76536

== ENCOUNTER 2022-12-25 00:05 | Observation (INO) | payer MEDICARE, SELFPAY ==
[2021-11-03 12:08] VITALS: BMI 34.9
[2022-12-25] VITALS (22 sets, daily range): BP systolic 117–184; BP diastolic 55–89; PULSE 52–73; RESP 14–28; TEMP 36.4–37.1; O2SAT 94–100; BMI 42.4; BMI 41.1
--- NOTE | 2022-12-25 00:19 | ED.VIS.CHEST ---
HPI History of Present Illness Chief Complaint: Chest Pain Informant: patient Onset/Context/Timing Onset: Today and Hours (Approximately 5 hours prior to arrival) Activity at onset: sudden Timing: Continuous Quality: Positive for Dull Location: Left Chest Worsened By: Exertion Relieved By: Nothing Associated Symptoms: Positive for Nausea, Dyspnea and Lightheadedness; Negative for Vomiting, Diaphoresis, Cough, Fever, Acid Reflux or Palpitations Narrative Narrative: Patient presents with chest pain that began tonight. Patient states it began approximately 5 hours prior to arrival. Patient states it is worse whenever she gets up and walks anywhere. Patient describes it as dull. Patient states it is over the left side of her chest. Patient states it waxes and wanes. Patient admits to some nausea but denies any vomiting. Patient admits to some shortness of breath and dizziness. Patient denies any cough or fever. Patient has a history of prior cardiac stents but has not had a heart catheterization in the past year. 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 Back pain Bilateral pneumonia CHF (congestive heart failure) Chronic back pain Chronic respiratory failure Constipation COPD (chronic obstructive pulmonary disease) Debility Depression Diabetes Elevated TSH Flu vaccine need Former smoker Health care maintenance Heart disease Hepatitis History of constipation HLD (hyperlipidemia) Hypertension Lung disease On home oxygen therapy MARK (obstructive sleep apnea) Pneumonia Psoriasis Smoking greater than 40 pack years SOB (shortness of breath) Thyroid nodule Type 2 diabetes mellitus Home Medications Handicap Placard #1 ea 12/12/20 [Rx Last Taken Unknown] flash glucose scanning reader (Asthmatx Emily 2 [place]) #1 ea 01/31/21 [Rx Last Taken Unknown] insulin lispro 100 unit/mL subcutaneous pen (Humalog KwikPen (U-100) Insulin) 17 unit (0.17 mL) subcut TID diabetes 3 months #45.9 mL 08/19/21 [Rx Last Taken Unknown] acetaminophen 500 mg tablet 500 mg PO QHS 10/21/21 [History Last Taken Unknown] bisacodyl 5 mg tablet,delayed release (Dulcolax (bisacodyl)) 5 mg PO QHS PRN constipation 30 days #30 tabs 11/13/21 [Rx Last Taken Unknown] nitroglycerin 0.4 mg sublingual tablet 0.4 mg sublingual Q5-15M PRN Pain 01/20/22 [History Last Taken Unknown] pen needle, diabetic 32 gauge x #50 ea 02/11/22 [Rx Last Taken Unknown] pantoprazole 40 mg tablet,delayed release 40 mg PO DAILY #90 tabs 04/24/22 [Rx Last Taken Unknown] tizanidine 2 mg tablet 2 mg PO HS PRN muscle spasticity #30 tabs 04/24/22 [Rx Last Taken Unknown] metoprolol tartrate 25 mg tablet 12.5 mg PO BID #90 tabs 05/04/22 [Rx Last Taken Unknown] losartan 25 mg tablet 25 mg PO DAILY #30 tabs 05/13/22 [Rx Last Taken Unknown] furosemide 20 mg tablet (Lasix) 20 mg PO DAILY #30 tabs 06/01/22 [Rx Last Taken Unknown] lidocaine 5 % topical patch 2 patch topical DAILY #30 ea 06/03/22 [Rx Last Taken Unknown] flash glucose sensor (MobileHandshakeyle Emily 2 Sensor kit) #2 ea 08/26/22 [Rx Last Taken Unknown] blood sugar diagnostic (True Metrix Glucose Test Strip) #100 ea 09/11/22 [Rx Last Taken Unknown] blood-glucose meter (True Metrix Glucose Meter) #1 ea 09/11/22 [Rx Last Taken Unknown] clopidogrel 75 mg tablet 75 mg PO DAILY #90 tabs 10/01/22 [Rx Last Taken Unknown] isosorbide mononitrate 60 mg tablet,extended release 24 hr 60 mg PO DAILY BP #90 tabs 10/01/22 [Rx Last Taken Unknown] budesonide-formoterol HFA 160 mcg-4.5 mcg/actuation aerosol inhaler (Symbicort) 2 puff inhalation BID Breo too expensive for patient, not covered #10.2 grams 10/15/22 [Rx Last Taken Unknown] budesonide 1 mg/2 mL suspension for nebulization 1 mg (2 mL) inhalation BID #60 mL 11/02/22 [Rx Last Taken Unknown] albuterol sulfate 90 mcg/actuation aerosol inhaler 2 puff inhalation Q6H PRN shortness of breath or wheezing #18 grams 11/06/22 [Rx Last Taken Unknown] ipratropium 0.5 mg-albuterol 3 mg (2.5 mg base)/3 mL nebulization soln 3 ml inhalation Q4H PRN PRN SOB &/OR WHEEZING #180 mL 11/10/22 [Rx Last Taken Unknown] cane #1 ea 11/16/22 [Rx Last Taken Unknown] citalopram 40 mg tablet 40 mg PO QHS depression #90 tabs 11/16/22 [Rx Last Taken Unknown] atorvastatin 80 mg tablet 80 mg PO QHS #90 tabs 11/30/22 [Rx Last Taken Unknown] insulin glargine 100 unit/mL (3 mL) subcutaneous pen (Basaglar KwikPen U-100 Insulin) 36 unit (0.36 mL) subcut DAILY diabetic managment #32.4 mL 12/03/22 [Rx Last Taken Unknown] alprazolam 0.25 mg tablet 0.25 mg PO QHS #30 tabs 12/07/22 [Rx Last Taken Unknown] risperidone 1 mg tablet 1 mg PO QHS anxiety #90 tabs 12/07/22 [Rx Last Taken Unknown] Allergy/AdvReac Type Severity Reaction Status Date / Time amoxicillin [Amoxicillin] Allergy Intermediate Rash Verified 12/03/22 14:22 hydrocodone Allergy Intermediate SWELLING Verified 12/03/22 14:22 gabapentin [From Neurontin] Allergy Shortness Verified 12/03/22 14:22 of breath levofloxacin [From Levaquin] Allergy Hives Verified 12/03/22 14:22 pseudoephedrine HCl Allergy Shortness Verified 12/03/22 14:22 [From Sudafed] of breath red dye Allergy Hives Verified 12/03/22 14:22 prednisone AdvReac Severe mean mood Verified 12/03/22 14:22 codeine AdvReac HEADACHE Verified 12/03/22 14:22 Family History Brother Heart disease Mother Colon cancer Heart disease Surgical History History of cholecystectomy History of coronary artery stent placement History of left heart catheterization (LHC) (~09/23/20) Hx of CABG Stented coronary artery (12/28/18) Social History Smoking Status: Former smoker pack-years: 40 how long ago did patient quit smokin year ago alcohol intake: never substance use type: does not use caffeine: Yes Type: carbonated beverages and tea what type of physical activity do you participate in: none ROS ROS ED Constitutional Constitutional ED: Denies chills or fever(s) Eyes Eyes: Denies blurry vision or change in vision ENT ENT ED: Reports sore throat; Denies rhinorrhea Cardiovascular Cardiovascular: Reports chest pain; Denies palpitations Respiratory/Chest Respiratory/Chest: Reports dyspnea; Denies cough Gastrointestinal Gastrointestinal: Reports nausea; Denies abdominal pain or vomiting Genitourinary Genitourinary ED: Denies dysuria or hematuria Musculoskeletal Musculoskeletal: Reports neck pain; Denies back pain Integumentary Denies abscess or rash Neurologic Neurologic: Reports headache(s); Denies weakness Allergic/Immunologic Allergic/Immunologic ED: Denies mouth swelling or urticaria EXAM Physical Exam Const Vital Signs: 12/25/22 00:06 12/25/22 00:13 12/25/22 00:19 Temperature 97.9 F 97.9 F Temperature Source Temporal Temporal Pulse Rate 62 59 L Respiratory Rate 15 20 H Respiratory Effort Normal Non-Labored Blood Pressure 173/89 H 181/82 H Blood Pressure Mean 117 115 Pulse Ox 99 98 Oxygen Delivery Method Nasal Cannula Room Air Oxygen Flow Rate (L/min) 4 12/25/22 00:30 12/25/22 00:32 12/25/22 01:10 Temperature Temperature Source Pulse Rate 55 L Respiratory Rate 21 H Respiratory Effort Blood Pressure 137/72 H 141/82 H Blood Pressure Mean 93 101 Pulse Ox 99 96 Oxygen Delivery Method Room Air Nasal Cannula Oxygen Flow Rate (L/min) 4 Positive well nourished, well developed and obese General Appearance ED: well developed and NAD Nutritional Appearance: obese HEENT normocephalic and atraumatic Eyes PERRL and EOMs intact bilaterally Neck supple and no JVD Chest Wall palpation of chest normal Resp normal respiratory effort and clear to auscultation bilaterally Effort and Inspection: Negative for respiratory distress Cardio regular rate and regular rhythm GI normal to inspection, nondistended, normoactive bowel sounds, soft to palpation, non-tender and non-distended Extremity normal to inspection General Extremety ED: Negative for edema or tenderness General Extremity: Negative for edema Neuro oriented x3, CN's II-XII intact bilaterally and no sensory deficits noted Sensorium / Orientation: awake and alert Motor Exam: strength 5/5 throughout Psych mental status grossly normal Heart Score History: Moderately Suspicious ECG: Normal Age: >/= 65 years Risk Factors: >/= 3 Risk Factors or History of CAD Troponin: </= Normal Limit Score: 5 MDM MDM MDM Narrative Medical decision making narrative: Differential diagnosis includes cardiac dysrhythmia, cardiac ischemia, pneumonia, pneumothorax, anxiety, COPD exacerbation, and congestive heart failure. EKG will be obtained to assess for cardiac dysrhythmia and cardiac ischemia. Chest x-ray will be obtained to assess for pneumonia and pneumothorax. CBC will be obtained to assess for leukocytosis and anemia. Basic metabolic profile will be obtained to assess for electrolyte abnormality and renal function, high-sensitivity troponin will be obtained to assess for cardiac ischemia. 2-hour repeat high-sensitivity troponin will be obtained to assess for ongoing cardiac ischemia. History & Record Review Additional record(s) reviewed:: Prior outpatient record and Prior labs Lab Data Attestation: I reviewed the patient's lab results. Lab results narrative: CBC was reviewed. There is a slight leukocytosis of 11.5. There is a mild anemia with a hemoglobin of 11.6 and hematocrit of 36.4. Platelets were normal. Basic metabolic profile was reviewed. This was essentially within normal limits. High-sensitivity troponin was reviewed and was normal at 8. Labs: Laboratory Results - last 24 hr 12/25/22 12/25/22 00:15 00:15 WBC 11.5 H RBC 3.96 L Hgb 11.6 L Hct 36.4 L MCV 91.9 MCH 29.3 MCHC 31.9 L RDW Std Deviation 40.6 RDW Coeff of [place] 12.1 Plt Count 285 MPV 11.0 Immature Gran % (Auto) 0.700 Neut % (Auto) 71.0 H Lymph % (Auto) 18.7 L [place] % (Auto) 6.8 Eos % (Auto) 2.0 Baso % (Auto) 0.8 Absolute Neuts (auto) 8.2 H Absolute Lymphs (auto) 2.16 Nucleated RBC % 0 Sodium 133 L Potassium 3.9 Chloride 94 L Carbon Dioxide 32.0 Anion Gap 7 BUN 11 Creatinine 0.72 Estim Creat Clear Calc 40.81 Est GFR (MDRD) Af Amer 102 Est GFR (MDRD) Non-Af 85 BUN/Creatinine Ratio 15.3 Glucose 126 H Calcium 9.5 Troponin I High Sens 8 Radiography Chest X-Ray - ED: 1 View, Read by ED Physician, Read by Radiologist and No Acute Disease Diagnostic Testing: Clinical Impression(s) from Imaging Studies Chest X-Ray 12/25/22 00:30 IMPRESSION: Stable exam with no radiographic evidence of acute cardiopulmonary disease. Electronically Signed: Jorge Mcdonnell MD at 1:23 EDT , Portable 1 view chest x-ray was obtained. On my independent interpretation, lung mera are clear. There is normal cardiac silhouette. Bony thorax is normal. There is no acute process noted. Radiologist also interpreted the x-ray and agrees. EKG Initial EKG: Attestation: I personally reviewed and interpreted this EKG as follows: Interpretation: Sinus Rhythm (59) and No Acute Injury Pattern Prior EKG tracings: available for review Prior: Unchanged (10/15/2022) Management Discussion w/another healthcare provider: Hospitalist Treatment and Re-Evaluation :: Patient was given aspirin here. Patient is feeling better on reevaluation. Patient was advised of her findings. Patient has a HEART score of 5. Patient has not had a stress test since 03/16/2020. Because of this, I feel patient would benefit from admission for observation for further cardiac work-up. Patient is agreeable with this. Case was discussed with the hospitalist. She will admit the patient for observation. Patient understands and is agreeable with the plan. All questions were answered. Discharge Plan Dx/Rx/DC Orders Clinical Impression: Chest pain, Type 2 diabetes mellitus, Obesity Disposition Disposition: [facility]
--- NOTE | 2022-12-25 00:26 | EKG12_ITS ---
Test Reason : CP Blood Pressure : / mmHG Vent. Rate : 059 BPM Atrial Rate : 059 BPM P-R Int : 172 ms QRS Dur : 080 ms QT Int : 420 ms P-R-T Axes : 000 001 049 degrees QTc Int : 415 ms Sinus bradycardia Otherwise normal ECG Confirmed by BANG MELVIN, ROSALIA ([id number]), senior technical editor JAVIER COLBY ([id number]) on 12/25/2022 8:55:58 AM Referred By: Aracelis Gamez Confirmed By:ROSALIA CUENCA MD
--- NOTE | 2022-12-25 00:30 | RAD_ITS ---
INDICATION: chest pain EXAMINATION/TECHNIQUE: X-RAY - XR Chest 1 View COMPARISON: Low-dose chest CT from 12/16/2022 FINDINGS: LINES/DEVICES: None. LUNGS: Stable pleural-parenchymal scarring and volume loss left lower lung. No overt pulmonary edema. Chronic blunting left costophrenic angle. No pneumothorax detected. MEDIASTINUM AND CARDIOVASCULAR STRUCTURES: Heart size within normal limits. Atherosclerotic calcifications along aorta. BONES AND SOFT TISSUES: No acute findings. RAD/Chest 1 View (Portable) IMPRESSION: Stable exam with no radiographic evidence of acute cardiopulmonary disease. Electronically Signed: Jorge Mcdonnell MD at 1:23 EDT ,
[2022-12-25 00:36] LABS: Absolute Lymphocyte Count 2.16 X10^3/uL (0.83-4.51); Absolute Neutrophil Count 8.2 X10^3/uL (2.0-7.7); Basophil# 0.09 X10^3/uL; Basophil% 0.8 % (0-1); Eosinophil# 0.23 X10^3/uL; Hematocrit 36.4 % (37-47); Hemoglobin 11.6 g/dL (12.0-15.0); Lymphocyte # 2.16 X10^3/ul (0.83-4.51); Lymphocyte % 18.7 % (19-41); Mean Corp Hgb Conc 31.9 g/dL (32-36); Mean Corpuscular Hgb 29.3 pg (27.0-32.0); Mean Corpuscular Volume 91.9 fL (81-99); Monocyte# 0.78 X10^3/uL; Monocyte% 6.8 % (0-10); NRBC Flagged by Analyzer 0 % (0-5); Platelet Count 285 K/mm3 (150-450); RBC Distribution Width CV 12.1 % (11.6-14.6); RBC Distribution Width SD 40.6 fl (35.1-43.9); Red Blood Count 3.96 M/mm3 (4.2-5.4); White Blood Count 11.5 K/mm3 (4.4-11.0)
[2022-12-25] MEDS: Aspirin 81 MG TAB.CHEW 324 MG PO (00:42)
[2022-12-25 01:10] LABS: Anion Gap 7 (5-15); BUN 11 mg/dL (7-18); BUN/Creat Ratio 15.3 RATIO (10-20); Calcium,Total 9.5 mg/dL (8.5-10.1); Chloride 94 mmol/L (98-107); Creatinine, Serum 0.72 mg/dL (0.55-1.02); EST Glomerular Filtration Rate 85 mL/min (>60); Est Glom Filt Rate - Afr Amer 102 mL/min (>60); Estimated Creatinine Clearance 40.81 ml/min; Glucose 126 mg/dL (74-106); Potassium 3.9 mmol/L (3.5-5.1); Sodium Level 133 mmol/L (136-145); Troponin-I HS (w/2H Reflex) 8 pg/mL (3.0-54.0)
--- NOTE | 2022-12-25 02:12 | HP.PCM.HOS_ITS ---
HPI - General General Date of Admission: 12/25/22 Date of Service: 12/25/22 Chief Complaint: Chest pain. HPI Narrative The patient is a 72 y/o F w/ PMHx: Morbid obesity, Chronic normocytic anemia, Asthma/COPD with Chronic Hypoxic Respiratory Failure (4L NC), Chronic Diastolic CHF, CAD, Depression and Anxiety, MARK on BIPAP, Diabetes mellitus type II, CAD s/p PCI and CABG, Former tobacco use who presents to the [facility] ED on 12/25/22 with history of onset of chest discomfort approximately 5 hours prior to ED arrival located in the left chest, continuous, worsened by exertion reported as dull aching with associated nausea, dyspnea and lightheadedness although waxes and wanes prompting eventual ED evaluation. She reports at its worst she rated her chest discomfort 7 out of 10 in severity. Currently she reports being chest pain-free. She does report feeling dyspneic and has been getting in and out of her ED bed sometimes without her chronic oxygen supplementation now requesting an albuterol inhaler treatment per respiratory therapy. Work-up in the ED included T97.9, heart rate 62, BP 173/89, respiratory rate 15, 99% on 4 L nasal cannula with most recent assessment heart rate 55, BP 141/82, CBC with WC 11.5, hemoglobin 11.6, MCV 91.9, platelet 285 with left shift, BMP with sodium 133, chloride 94, glucose 126 otherwise not marked appearing, troponin 8, chest x-ray with stable pleural parenchymal scarring and volume loss left lower lung with chronic blunting of the left costophrenic angle with no other acute cardiopulmonary findings, EKG with sinus rhythm with no acute evidence of ischemia unchanged from previous. In the ED patient ministered aspirin 324 mg p.o. x1. [facility] Medical History (Updated 12/25/22 @ 02:[address] Aracelis Gamez MD) Anemia Anxiety and depression Asthma with COPD Atherosclerotic heart disease of [place] coronary artery without angina pectoris Back pain Chronic back pain Chronic respiratory failure Diastolic CHF Former smoker Hepatitis HLD (hyperlipidemia) Hypertension Morbid obesity MARK treated with BiPAP Psoriasis Smoking greater than 40 pack years Thyroid nodule Type 2 diabetes mellitus Home Medications Handicap Placard #1 ea 12/12/20 [Rx Last Taken Unknown] flash glucose scanning reader (FreeStyle Emily 2 [place]) #1 ea 01/31/21 [Rx Last Taken Unknown] insulin lispro 100 unit/mL subcutaneous pen (Humalog KwikPen (U-100) Insulin) 17 unit (0.17 mL) subcut TID diabetes 3 months #45.9 mL 08/19/21 [Rx Last Taken Unknown] acetaminophen 500 mg tablet 500 mg PO QHS 10/21/21 [History Last Taken Unknown] bisacodyl 5 mg tablet,delayed release (Dulcolax (bisacodyl)) 5 mg PO QHS PRN co nstipation 30 days #30 tabs 11/13/21 [Rx Last Taken Unknown] nitroglycerin 0.4 mg sublingual tablet 0.4 mg sublingual Q5-15M PRN Pain 01/20/22 [History Last Taken Unknown] pen needle, diabetic 32 gauge x #50 ea 02/11/22 [Rx Last Taken Unknown] pantoprazole 40 mg tablet,delayed release 40 mg PO DAILY #90 tabs 04/24/22 [Rx Last Taken Unknown] tizanidine 2 mg tablet 2 mg PO HS PRN muscle spasticity #30 tabs 04/24/22 [Rx Last Taken Unknown] metoprolol tartrate 25 mg tablet 12.5 mg PO BID #90 tabs 05/04/22 [Rx Last Taken Unknown] losartan 25 mg tablet 25 mg PO DAILY #30 tabs 05/13/22 [Rx Last Taken Unknown] furosemide 20 mg tablet (Lasix) 20 mg PO DAILY #30 tabs 06/01/22 [Rx Last Taken Unknown] lidocaine 5 % topical patch 2 patch topical DAILY #30 ea 06/03/22 [Rx Last Taken Unknown] flash glucose sensor (FreeStyle Emily 2 Sensor kit) #2 ea 08/26/22 [Rx Last Taken Unknown] blood sugar diagnostic (True Metrix Glucose Test Strip) #100 ea 09/11/22 [Rx Last Taken Unknown] blood-glucose meter (True Metrix Glucose Meter) #1 ea 09/11/22 [Rx Last Taken Unknown] clopidogrel 75 mg tablet 75 mg PO DAILY #90 tabs 10/01/22 [Rx Last Taken Unknown] isosorbide mononitrate 60 mg tablet,extended release 24 hr 60 mg PO DAILY BP #90 tabs 10/01/22 [Rx Last Taken Unknown] budesonide-formoterol HFA 160 mcg-4.5 mcg/actuation aerosol inhaler (Symbicort) 2 puff inhalation BID Breo too expensive for patient, not covered #10.2 grams 10/15/22 [Rx Last Taken Unknown] budesonide 1 mg/2 mL suspension for nebulization 1 mg (2 mL) inhalation BID #60 mL 11/02/22 [Rx Last Taken Unknown] albuterol sulfate 90 mcg/actuation aerosol inhaler 2 puff inhalation Q6H PRN shortness of breath or wheezing #18 grams 11/06/22 [Rx Last Taken Unknown] ipratropium 0.5 mg-albuterol 3 mg (2.5 mg base)/3 mL nebulization soln 3 ml inhalation Q4H PRN PRN SOB &/OR WHEEZING #180 mL 11/10/22 [Rx Last Taken Unknown] cane #1 ea 11/16/22 [Rx Last Taken Unknown] citalopram 40 mg tablet 40 mg PO QHS depression #90 tabs 11/16/22 [Rx Last Taken Unknown] atorvastatin 80 mg tablet 80 mg PO QHS #90 tabs 11/30/22 [Rx Last Taken Unknown] insulin glargine 100 unit/mL (3 mL) subcutaneous pen (Basaglar KwikPen U-100 Insulin) 36 unit (0.36 mL) subcut DAILY diabetic managment #32.4 mL 12/03/22 [Rx Last Taken Unknown] alprazolam 0.25 mg tablet 0.25 mg PO QHS #30 tabs 12/07/22 [Rx Last Taken Unknown] risperidone 1 mg tablet 1 mg PO QHS anxiety #90 tabs 12/07/22 [Rx Last Taken Unknown] Allergy/AdvReac Type Severity Reaction Status Date / Time amoxicillin [Amoxicillin] Allergy Intermediate Rash Verified 12/03/22 14:22 hydrocodone Allergy Intermediate SWELLING Verified 12/03/22 14:22 gabapentin [From Neurontin] Allergy Shortness Verified 12/03/22 14:22 of breath levofloxacin [From Levaquin] Allergy Hives Verified 12/03/22 14:22 pseudoephedrine HCl Allergy Shortness Verified 12/03/22 14:22 [From Sudafed] of breath red dye Allergy Hives Verified 12/03/22 14:22 prednisone AdvReac Severe mean mood Verified 12/03/22 14:22 codeine AdvReac HEADACHE Verified 12/03/22 14:22 Family History Brother Heart disease Mother Colon cancer Heart disease Surgical History (Updated 12/25/22 @ 02:[address] Aracelis Gamez MD) History of cholecystectomy History of left heart catheterization (LHC) (~09/23/20) Stented coronary artery (12/28/18) Social History Smoking Status: Former smoker pack-years: 40 how long ago did patient quit smokin year ago alcohol intake: never substance use type: does not use caffeine: Yes Type: carbonated beverages and tea what type of physical activity do you participate in: none ROS ROS Narrative Admission Review of Systems: CONSTITUTIONAL: No weight loss, fever, chills, + weakness or fatigue. HEENT: Eyes: No visual loss, blurred vision, double vision or yellow sclerae. Ears, Nose, Throat: No hearing loss, sneezing, congestion, runny nose or sore throat. SKIN: No rash or itching, lesions, wounds. CARDIOVASCULAR: + chest pain, chest pressure or chest discomfort. No palpitations, edema, orthopnea, syncopal events. RESPIRATORY: + Shortness of breath, chronic cough without marked sputum, occasional wheezing. No hemoptysis. GASTROINTESTINAL: No anorexia, nausea, vomiting or diarrhea, abdominal pain, melena, BRBPR. GENITOURINARY: No dysuria, frequency, urgency or retention. NEUROLOGICAL: No headache, dizziness, syncope, paralysis, ataxia, numbness or tingling in the extremities, focal weakness, change in bowel or bladder control, seizure. MUSCULOSKELETAL: + muscle, back pain, joint pain or stiffness. HEMATOLOGIC: + anemia, bleeding or bruising. LYMPHATICS: No enlarged nodes. No history of splenectomy. PSYCHIATRIC: + history of depression or anxiety. ENDOCRINOLOGIC: No reports of sweating, cold or heat intolerance. No polyuria or polydipsia. ALLERGIES: + history of asthma, psoriasis, hives. Vital Signs Vital Signs Vital Signs: 12/25/22 00:06 12/25/22 00:13 12/25/22 00:19 Temperature 97.9 F 97.9 F Temperature Source Temporal Temporal Pulse Rate 62 59 L Respiratory Rate 15 20 H Respiratory Effort Normal Non-Labored Blood Pressure 173/89 H 181/82 H Blood Pressure Mean 117 115 Pulse Ox 99 98 Oxygen Delivery Method Nasal Cannula Room Air Oxygen Flow Rate (L/min) 4 12/25/22 00:30 12/25/22 00:32 12/25/22 01:10 Temperature Temperature Source Pulse Rate 55 L Respiratory Rate 21 H Respiratory Effort Blood Pressure 137/72 H 141/82 H Blood Pressure Mean 93 101 Pulse Ox 99 96 Oxygen Delivery Method Room Air Nasal Cannula Oxygen Flow Rate (L/min) 4 Weight Weight: 231 lb 14.821 oz Body Mass Index (BMI) 42.4 Physical Exam Narrative Physical Examination: General: Awake, alert, oriented x 3 and cooperative, seated upright in the ED bed, fatigued, dyspneic with exertion which is chronic for her Skin: Normal color, normal turgor, no icterus, no cyanosis except for mild venous stasis bilateral lower extremities as well as psoriatic skin changes. HEENT: AT/NC, EOMI, PERRLA, MMM, no carotid bruits or JVD noted; however thickened neck makes evaluation difficult. Lungs: Significantly diminished, greater bases, shallow breath, no evidence of any respiratory distress, no current marked rales, rhonchi or wheezing noted. Heart: Currently mildly bradycardic with regular rhythm; no gallop, rub audible. Abdomen: Soft, morbidly obese, umbilical hernia present, NTTP, ND, distant normal BS, unable to discern HSM well given habitus. Extremities: No cyanosis, no clubbing, mild peripheral nonpitting edema noted, extremely thick and long toenails. Neurological: Patient awake, alert, oriented as noted, cognitive function intact; pupils equally reactive to light and accommodation, cranial nerves II- XII grossly normal, moving all 4 extremities, no focal deficits, strength moderately to severely globally decreased primarily secondary to underlying comorbidities, lung disease. Psychiatric: Affect appears fatigued otherwise normal, no acute evidence of depressive or anxiety feelings but does have underlying history. Results Lab / Micro Data Result Diagrams: 12/25/22 00:15 12/25/22 00:15 Labs: Laboratory Results - last 24 hr 12/25/22 00:15: WBC 11.5 H, RBC 3.96 L, Hgb 11.6 L, Hct 36.4 L, MCV 91.9, MCH 29.3, MCHC 31.9 L, RDW Std Deviation 40.6, RDW Coeff of Malcom 12.1, Plt Count 285, MPV 11.0, Immature Gran % (Auto) 0.700, Neut % (Auto) 71.0 H, Lymph % (Auto) 18.7 L, [place] % (Auto) 6.8, Eos % (Auto) 2.0, Baso % (Auto) 0.8, Absolute Neuts (auto) 8.2 H, Absolute Lymphs (auto) 2.16, Nucleated RBC % 0 12/25/22 00:15: Sodium 133 L, Potassium 3.9, Chloride 94 L, Carbon Dioxide 32.0, Anion Gap 7, BUN 11, Creatinine 0.72, Estim Creat Clear Calc 40.81, Est GFR (MDRD) Af Amer 102, Est GFR (MDRD) Non-Af 85, BUN/Creatinine Ratio 15.3, Glucose 126 H, Calcium 9.5, Troponin I High Sens 8 Radiology Impression Chest X-Ray 12/25/22 00:30 IMPRESSION: Stable exam with no radiographic evidence of acute cardiopulmonary disease. Electronically Signed: Jorge Mcdonnell MD at 1:23 EDT , Assessment & Plan Assessment/Plan (1) Chest pain: PLAN: Plan The patient is a 72 y/o F w/ PMHx: Morbid obesity, Chronic normocytic anemia, A sthma/COPD with Chronic Hypoxic Respiratory Failure (4L NC), Chronic Diastolic CHF, CAD, Depression and Anxiety, MARK on BIPAP, Diabetes mellitus type II, CAD s/p PCI and CABG, Former tobacco use who presents to the [facility] ED on 12/25/22 with history of onset of chest discomfort approximately 5 hours prior to ED arrival located in the left chest, continuous, worsened by exertion reported as dull aching with associated nausea, dyspnea and lightheadedness although waxes and wanes prompting eventual ED evaluation. #1. Chest Pain: EKG in ED with sinus rhythm with no acute evidence of ischemia unchanged from previous, CXR w/ chronic changes with no acute cardiopulmonary findings otherwise, initial trop 8. Will admit to PCU, place on a monitored bed to assure no acute myocardial infarction with serial cardiac enzymes and EKGs. If repeat serial cardiac enzymes and EKGs remain unremarkable will pursue a.m. cardiac stress testing. FLP in AM. Magnesium level requested. ASA, NG, morphine. #2. CAD: Status post PCI ostial diagonal and mid LAD 12/26/2018 #3. Chronic Diastolic CHF: 08/11/2021 echocardiogram with normal LV size, moderate concentric LVH, LV systolic function normal, EF 60%, pulmonary artery systolic pressure 40 mmHg, stage I diastolic dysfunction. We will continue aspirin, Plavix, statin, metoprolol, losartan, IV Lasix home regimen. #4. Chronic COPD/asthma with chronic hypoxic respiratory failure (4L NC): Will maintain on home oxygen supplementation, will hold home inhalers in the interim transition to ATC budesonide therapy, PRN albuterol, HOB, IS parameters. #5. Diabetes mellitus type II: Hold oral home regimen, continue home insulin, ADA diet, accu checks w/ ISS. #6. Hypertension: Continue home regimen including metoprolol, losartan, isosorbide, Lasix, PRN hydralazine. #7. Hyperlipidemia: Continue home statin regimen. AM FLP. #8. Chronic normocytic anemia: Admission hemoglobin 11.6, MCV 91.9, baseline appears primarily 11-12, continue to trend. #9. Anxiety and depression: We will continue patient home risperidone, citalopram, alprazolam home regimen. #10. Morbid Obesity: Weight loss and lifestyle changes encouraged. #11. Former tobacco use: Encourage continued tobacco cessation. #12. MARK: BIPAP nightly. #13. DVT prophylaxis: Lovenox. #14. CODE status: Patient HCPOA and living will are not in place. She notes she was unable to make any medical decisions she would want her vxrvmerp-oo-ide Farideh to be her medical decision-maker. Discussed CODE status at length including difference between FULL code, DNR-CCA and DNR-CC status. Following discussions about the differences in these status, requested Full Code status. Advanced Care Planning Face to Face Time: 16 minutes. Admission Evaluation Time spent evaluating chart, patient history, patient evaluation, care planning and discussion with specialists: 60 minutes. Charges/Coding Visit Charges Inpatient E&M: 04075 Init Hosp L2 Procedures Hospitalists Procedures: 06228 Advncd Care Plan 30 Min
[2022-12-25 02:20] LABS: Magnesium 1.9 mg/dL (1.6-2.6)
--- NOTE | 2022-12-25 02:22 | EKG12_ITS ---
Test Reason : CP ADMISSION Blood Pressure : / mmHG Vent. Rate : 055 BPM Atrial Rate : 055 BPM P-R Int : 144 ms QRS Dur : 082 ms QT Int : 470 ms P-R-T Axes : 011 017 063 degrees QTc Int : 449 ms Sinus bradycardia Otherwise normal ECG When compared with ECG of 25-DEC-2022 00:13, MANUAL COMPARISON REQUIRED, DATA IS UNCONFIRMED Confirmed by BANG MELVIN, ROSALIA ([id number]), advertising editor JAVIER COLBY ([id number]) on 12/25/2022 1:10:37 PM Referred By: Aracelis Gamez Confirmed By:ROSALIA CUENCA MD
[2022-12-25 02:33] LABS: Reflex Troponin-HS? (from REC) Y
[2022-12-25] MEDS: 0.9% Normal Saline 1,000 ML 100 ML IV (02:49)
[2022-12-25] MEDS: Albuterol 2.5 MG/3 ML VIAL.NEB. INHALATION ×2 (02:50→07:26)
--- NOTE | 2022-12-25 02:50 | CPS ---
Pt stated that she doesn't want to wear any BiPAP at this time.
[2022-12-25 03:10] LABS: Troponin-I HS 10 pg/mL (3.0-54.0)
[2022-12-25 06:19] LABS: Absolute Lymphocyte Count 2.03 X10^3/uL (0.83-4.51); Absolute Neutrophil Count 6.9 X10^3/uL (2.0-7.7); Basophil# 0.08 X10^3/uL; Basophil% 0.8 % (0-1); Eosinophil# 0.27 X10^3/uL; Eosinophils% 2.7 % (0-5); Hematocrit 32.5 % (37-47); Hemoglobin 10.4 g/dL (12.0-15.0); Lymphocyte # 2.03 X10^3/ul (0.83-4.51); Lymphocyte % 20.4 % (19-41); Mean Corpuscular Hgb 29.5 pg (27.0-32.0); Mean Corpuscular Volume 92.1 fL (81-99); Mean Platelet Vol. 10.9 fl (6.2-12.0); Monocyte# 0.57 X10^3/uL; Monocyte% 5.7 % (0-10); NRBC Flagged by Analyzer 0 % (0-5); Neutrophil # 6.93 X10^3/uL (2.7-7.7); Neutrophil % 69.9 % (47-70); Platelet Count 252 K/mm3 (150-450); RBC Distribution Width CV 12.1 % (11.6-14.6); RBC Distribution Width SD 40.6 fl (35.1-43.9); Red Blood Count 3.53 M/mm3 (4.2-5.4); White Blood Count 9.9 K/mm3 (4.4-11.0)
[2022-12-25] MEDS: Clopidogrel Bisulfate 75 MG Tablet PO (06:22)
[2022-12-25] MEDS: Losartan Potassium 25 MG Tablet PO (06:22)
[2022-12-25] MEDS: Aspirin 81 MG TAB.CHEW PO (06:22)
[2022-12-25 06:43] LABS: Troponin-I HS 9 pg/mL (3.0-54.0)
[2022-12-25 06:51] LABS: ALB/GLOB Ratio 1.1 RATIO (0.9-2.4); AST(SGOT) 11 U/L (15-37); Alanine Aminotransfer ALT/SGPT 20 U/L (13-56); Albumin, Serum 3.1 g/dL (3.2-5.0); Alkaline Phosphatase 109 U/L (45-117); Anion Gap 7 (5-15); BUN 13 mg/dL (7-18); BUN/Creat Ratio 15.9 RATIO (10-20); Chloride 97 mmol/L (98-107); Creatinine, Serum 0.82 mg/dL (0.55-1.02); EST Glomerular Filtration Rate 73 mL/min (>60); Est Glom Filt Rate - Afr Amer 89 mL/min (>60); Estimated Creatinine Clearance 49.77 ml/min; Globulin 2.9 g/dL (2.2-4.2); Glucose 215 mg/dL (74-106); Potassium 3.4 mmol/L (3.5-5.1); Sodium Level 135 mmol/L (136-145)
[2022-12-25 07:00] LABS: Bedside Glucose 205 mg/dL (74-106)
--- NOTE | 2022-12-25 07:03 | PN.HOSP_ITS ---
Reason for Visit Reason for Visit: Diagnoses Chest pain, unspecified (12/25/22) Subjective Subjective Follow-up for atypical chest pain. Objective Data Objective Data Vital Signs: Vital Signs Temp Pulse Resp BP Pulse Ox O2 Del Method O2 Flow Rate 98.7 F 69 20 H 143/61 H 99 Nasal Cannula 4 12/25/22 06:18 12/25/22 06:18 12/25/22 06:18 12/25/22 06:18 12/25/22 06:18 12/25/22 06:18 12/25/22 06:18 Oxygen Flow Rate (L/min) 4 Oxygen Delivery Method Nasal Cannula Weight: 224 lb 13.944 oz Body Mass Index (BMI) 41.1 Lab / Micro Data Result Diagrams: 12/25/22 05:55 12/25/22 05:55 Labs: Laboratory Results - last 24 hr 12/25/22 00:15: WBC 11.5 H, RBC 3.96 L, Hgb 11.6 L, Hct 36.4 L, MCV 91.9, MCH 29.3, MCHC 31.9 L, RDW Std Deviation 40.6, RDW Coeff of Malcom 12.1, Plt Count 285, MPV 11.0, Immature Gran % (Auto) 0.700, Neut % (Auto) 71.0 H, Lymph % (Auto) 18.7 L, [place] % (Auto) 6.8, Eos % (Auto) 2.0, Baso % (Auto) 0.8, Absolute Neuts (auto) 8.2 H, Absolute Lymphs (auto) 2.16, Nucleated RBC % 0 12/25/22 00:15: Sodium 133 L, Potassium 3.9, Chloride 94 L, Carbon Dioxide 32.0, Anion Gap 7, BUN 11, Creatinine 0.72, Estim Creat Clear Calc 40.81, Est GFR (MDRD) Af Amer 102, Est GFR (MDRD) Non-Af 85, BUN/Creatinine Ratio 15.3, Glucose 126 H, Calcium 9.5, Troponin I High Sens 8 12/25/22 00:15: Magnesium 1.9 12/25/22 02:45: Troponin I High Sens 10 12/25/22 05:55: WBC 9.9, RBC 3.53 L, Hgb 10.4 L, Hct 32.5 L, MCV 92.1, MCH 29.5, MCHC 32.0, RDW Std Deviation 40.6, RDW Coeff of Malcom 12.1, Plt Count 252, MPV 10.9, Immature Gran % (Auto) 0.500, Neut % (Auto) 69.9, Lymph % (Auto) 20.4, [place] % (Auto) 5.7, Eos % (Auto) 2.7, Baso % (Auto) 0.8, Absolute Neuts (auto) 6.9, Absolute Lymphs (auto) 2.03, Nucleated RBC % 0 12/25/22 05:55: Sodium 135 L, Potassium 3.4 L, Chloride 97 L, Carbon Dioxide 31.0, Anion Gap 7, BUN 13, Creatinine 0.82, Estim Creat Clear Calc 49.77, Est GFR (MDRD) Af Amer 89, Est GFR (MDRD) Non-Af 73, BUN/Creatinine Ratio 15.9, Glucose 215 H, Calcium 9.0, Total Bilirubin 0.30, AST 11 L, ALT 20, Alkaline Phosphatase 109, Total Protein 6.0 L, Albumin 3.1 L, Globulin 2.9, Albumin/Globulin Ratio 1.1 12/25/22 05:55: Troponin I High Sens 9 12/25/22 06:21: POC Glucose 205 H Radiography Diagnostic Testing: Radiology Impression Chest X-Ray 12/25/22 00:30 IMPRESSION: Stable exam with no radiographic evidence of acute cardiopulmonary disease. Electronically Signed: Jorge Mcdonnell MD at 1:23 EDT , Physical Exam Narrative Seen and examined. Patient stated she felt pain over left anterolateral chest localized more with deep inspiration and cough pleuritic in nature. It did not radiate to her arms.Chest pain felt like tightness, 3-4/10 intensity, intermittent since last night multiple each lasting for about 10 minutes. Patient had associated nausea dyspnea and lightheadedness waxing and waning in nature. Physical exam General: Alert, Oriented x3, Cooperative HEENT: Atraumatic, PERRLA, EOMI, Normocephalic Oral: No Gingival or Mucosal Lesions/ Ulcerations Neck: Supple, No JVD, Negative Carotid Bruits Lungs: Air entry diminished in bilateral lung bases. No crepitation/rhonchi Cardiovascular: Regular sinus rhythm, Normal S1, Normal S2, No murmurs Abdomen: Bowel Sounds Present, Soft, Non Tender, Non-Distended : No renal angle tenderness. No suprapubic tenderness. Extremities: Minimal ankle edema, Capillary Refill Less than 3 Seconds Skin: No rashes, No breakdown Musculoskeletal: No Tenderness to Palpation of Joints or Extremities. ROM full. Neurological: Cranial nerves II-XII grossly intact, DTR 2+/4 and Symmetrical, Neuro grossly intact Psych/Mental Status: Normal Affect, Appropriate. Assessment & Plan Assessment/Plan (1) Chest pain: PLAN: Plan The patient is a 72 y/o F is admitted for chest discomfort approximately 5 hours prior to ED arrival located in the left chest, continuous, worsened by exertion reported as dull aching with associated nausea, dyspnea and lightheadedness. #1. Atypical chest pain possible unstable angina: EKG in ED with sinus rhythm with no acute evidence of ischemia unchanged from previous, CXR w/ chronic changes with no acute cardiopulmonary findings otherwise, initial trop 8. Patient is being admitted to PCU. Serial troponins are negative. Pharmacological stress test showed reversible myocardial ischemia over anterior and septal area moderate-sized. Gated EF 75% with hyperdynamic LV. Patient was taken for cardiac cath which showed ostial lesion of jailed diagonal branch p atent LAD stent. No other significant atherosclerotic disease noted in left main circumflex and RCA. Optimization of medical therapy of angina with addition of Imdur and Ranexa recommended. Status patient is allergic to Ranexa with right eye, hives. #2. CAD: Status post PCI ostial diagonal and mid LAD 12/26/2018 #3. Chronic Diastolic CHF: 08/11/2021 echocardiogram with normal LV size, moderate concentric LVH, LV systolic function normal, EF 60%, pulmonary artery systolic pressure 40 mmHg, stage I diastolic dysfunction. We will continue aspirin, Plavix, statin, metoprolol, losartan, IV Lasix home regimen. #4. COPD/asthma overlap with chronic hypoxic respiratory failure (4L NC): on home oxygen supplementation, will hold home inhalers in the interim transition to ATC budesonide therapy, PRN albuterol, HOB, IS parameters. #5. Diabetes mellitus type II: Hold oral home regimen, continue home insulin, ADA diet, accu checks w/ ISS. #6. Hypertension: Continue home regimen including metoprolol, losartan, isosorbide, Lasix, PRN hydralazine. #7. Hyperlipidemia: Continue home statin regimen. AM FLP. #8. Chronic normocytic anemia: Admission hemoglobin 11.6, MCV 91.9, baseline ap pears primarily 11-12, continue to trend. #9. Anxiety and depression: We will continue patient home risperidone, citalopram, alprazolam home regimen. #10. Morbid Obesity: Weight loss and lifestyle changes encouraged. #11. Other comorbidities include obstructive sleep apnea, former smoker: On B iPAP at night. DVT prophylaxis: Lovenox. CODE status: Patient HCPOA and living will are not in place. She notes she was unable to make any medical decisions she would want her [id number] Farideh to be her medical decision-maker. Discussed CODE status at length including difference between FULL code, DNR-CCA and DNR-CC status. Following discussions about the differences in these status, requested Full Code status. Laboratory Results 12/25/22 00:15: WBC 11.5 H, RBC 3.96 L, Hgb 11.6 L, Hct 36.4 L, MCV 91.9, MCH 29.3, MCHC 31.9 L, RDW Std Deviation 40.6, RDW Coeff of Malcom 12.1, Plt Count 285, MPV 11.0, Immature Gran % (Auto) 0.700, Neut % (Auto) 71.0 H, Lymph % (Auto) 18.7 L, [place] % (Auto) 6.8, Eos % (Auto) 2.0, Baso % (Auto) 0.8, Absolute Neuts (auto) 8.2 H, Absolute Lymphs (auto) 2.16, Nucleated RBC % 0 12/25/22 00:15: Sodium 133 L, Potassium 3.9, Chloride 94 L, Carbon Dioxide 32.0, Anion Gap 7, BUN 11, Creatinine 0.72, Estim Creat Clear Calc 40.81, Est GFR (MDRD) Af Amer 102, Est GFR (MDRD) Non-Af 85, BUN/Creatinine Ratio 15.3, Glucose 126 H, Calcium 9.5, Troponin I High Sens 8 12/25/22 00:15: Magnesium 1.9 12/25/22 02:45: Troponin I High Sens 10 12/25/22 05:55: WBC 9.9, RBC 3.53 L, Hgb 10.4 L, Hct 32.5 L, MCV 92.1, MCH 29.5, MCHC 32.0, RDW Std Deviation 40.6, RDW Coeff of Malcom 12.1, Plt Count 252, MPV 10.9, Immature Gran % (Auto) 0.500, Neut % (Auto) 69.9, Lymph % (Auto) 20.4, [place] % (Auto) 5.7, Eos % (Auto) 2.7, Baso % (Auto) 0.8, Absolute Neuts (auto) 6.9, Absolute Lymphs (auto) 2.03, Nucleated RBC % 0 12/25/22 05:55: Sodium 135 L, Potassium 3.4 L, Chloride 97 L, Carbon Dioxide 31.0, Anion Gap 7, BUN 13, Creatinine 0.82, Estim Creat Clear Calc 49.77, Est GFR (MDRD) Af Amer 89, Est GFR (MDRD) Non-Af 73, BUN/Creatinine Ratio 15.9, Glucose 215 H, Calcium 9.0, Total Bilirubin 0.30, AST 11 L, ALT 20, Alkaline Ph osphatase 109, Total Protein 6.0 L, Albumin 3.1 L, Globulin 2.9, Albumin/Globulin Ratio 1.1 12/25/22 05:55: Troponin I High Sens 9 12/25/22 06:21: POC Glucose 205 H 12/25/22 11:08: POC Glucose 276 H Charges/Coding Visit Charges Inpatient E&M: 93614 Subs Hosp L2
[2022-12-25] MEDS: Budesonide Respules 0.5 MG/2 ML AMPUL.NEB. INHALATION ×2 (07:25→19:26)
--- NOTE | 2022-12-25 07:25 | CPS ---
Pt said not to put a PEP or I.S. in her room because she won't use them, dayshift RN aware.
[2022-12-25] MEDS: Potassium Chloride Oral Tablet 20 MEQ 40 MEQ PO (07:59)
[2022-12-25] MEDS: Isosorbide Mononitrate 60 MG Tablet PO (10:15)
[2022-12-25] MEDS: Furosemide 20 MG Tablet PO (10:15)
[2022-12-25] MEDS: Metoprolol Tartrate 25 MG Tablet 12.5 MG PO ×2 (10:15→22:06)
[2022-12-25] MEDS: Pantoprazole Sodium 40 MG Tablet PO (10:16)
[2022-12-25] MEDS: Insulin Lispro 100 UNIT/ML INSULN.PEN 17 UNIT SC (11:11)
[2022-12-25] MEDS: Insulin Lispro 100 UNIT/ML INSULN.PEN SC ×2 (11:12→22:07)
--- NOTE | 2022-12-25 11:15 | CASEMGMT ---
SW reviewed patient's chart and noted she does not have any emergency contacts listed and she does not have a Healthcare Power of [employer] Supervisor. SW met with patient. Introduced self and role at [facility]. SW mentioned to patient that she does not have any emergency contacts listed. SW explained that if patient were to come into the hospital and unable to make medical decisions for herself we would need to know who she would want to make those decisions. Patient said she would want her daughter in law Farideh Vargas. SW asked patient if she would like to complete the Healthcare Power of [employer] Supervisor and patient immediately declined. SW asked patient if she has children and patient said she does. SW explained that without the documents her medical decision makers if she were unable to make medical decisions would go to her children. Patient said she wants it to go to Crystal. SW recommended she complete documents stating this otherwise it will go to her children. Patient said she is not completing documents and it can go to her children. Patient was in agreement with SW adding Crystal as her emergency contact. Rochelle NEUMANN
[2022-12-25 11:31] LABS: Bedside Glucose 276 mg/dL (74-106)
--- NOTE | 2022-12-25 11:52 | DCINST_ITS ---
Discharge Instructions Follow Up Care Test Results: Test results from this visit will be discussed in further detail at your follow- up appointment, if applicable. Discharge Plan Admission Admit Date/Time: 12/25/22 01:42 Attending Provider: Nico Sweet Primary Care Provider: Billy Madera Consulting Providers: Aracelis Gamez Discharge Orders/Prescriptions Prescriptions: No Action (DME) Handicap Placard See Rx Instructions .ROUTE .MEDSUPPLY Qty: 1 0RF Rx Instructions: As directed, length of time 3 years insulin lispro [Humalog KwikPen Insulin] 100 unit/mL insulin pen 17 unit SC TID 90 Days Qty: 45.9 3RF Rx Instructions: Hold if glucose less than 130 mg/dl lidocaine 5 % adhesive patch,medicated 2 patch topical DAILY Qty: 30 3RF Rx Instructions: leave on most painful area for up to 12 hrs tizanidine 2 mg tablet 2 mg PO HS PRN (Reason: muscle spasticity) Qty: 30 0RF pantoprazole 40 mg tablet,delayed release (DR/EC) 40 mg PO DAILY Qty: 90 1RF insulin glargine [Basaglar KwikPen U-100 Insulin] 100 unit/mL (3 mL) insulin pen 36 unit subcut DAILY Qty: 32.4 1RF Rx Instructions: daily at bedtime budesonide 1 mg/2 mL suspension for nebulization 1 mg inhalation BID Qty: 60 6RF citalopram 40 mg tablet 40 mg PO QHS Qty: 90 3RF (DME) cane Device See Rx Instructions .Route Qty: 1 0RF Rx Instructions: As directed acetaminophen 500 MG tablet 500 mg PO QHS Rx Instructions: over the counter. no prescription required. nitroglycerin 0.4 mg tablet, sublingual 0.4 mg SUBLINGUAL Q5-15M PRN (Reason: Pain) (DME) FreeStyle Emily 2 [place] Misc See Rx Instructions .ROUTE .MEDSUPPLY Qty: 1 0RF Rx Instructions: As directed bisacodyl [Dulcolax (bisacodyl)] 5 mg tablet,delayed release (DR/EC) 5 mg PO QHS PRN (Reason: constipation) 30 Days Qty: 30 3RF (DME) pen needle, diabetic 32 gauge x 5/32 needle See Rx Instructions .ROUTE .MEDSUPPLY Qty: 50 0RF Rx Instructions: 4x/day metoprolol tartrate 25 mg tablet 12.5 mg PO BID Qty: 90 3RF Rx Instructions: losartan 25 mg tablet 25 mg PO DAILY Qty: 30 11RF furosemide [Lasix] 20 mg tablet 20 mg PO DAILY Qty: 30 11RF (DME) FreeStyle Emily 2 Sensor Kit See Rx Instructions .ROUTE .MEDSUPPLY Qty: 2 3RF Rx Instructions: As directed (DME) blood-glucose meter [True Metrix Glucose Meter] Misc See Rx Instructions .Route Qty: 1 0RF Rx Instructions: As directed (DME) True Metrix Glucose Test Strip Strip See Rx Instructions .Route Qty: 100 7RF Rx Instructions: tid isosorbide mononitrate 60 mg tablet extended release 24 hr 60 mg PO DAILY Qty: 90 3RF clopidogrel 75 mg tablet 75 mg PO DAILY Qty: 90 3RF budesonide-formoterol [Symbicort] 160-4.5 mcg/actuation HFA aerosol inhaler 2 puff inhalation BID Qty: 10.2 0RF albuterol sulfate 90 mcg/actuation HFA aerosol inhaler 2 puff INHALATION Q6H PRN (Reason: shortness of breath or wheezing) Qty: 18 3RF ipratropium-albuterol 0.5 mg-3 mg(2.5 mg base)/3 mL solution for nebulization 3 ml INHALATION Q4H PRN PRN (Reason: SOB &/OR WHEEZING) Qty: 180 6RF atorvastatin 80 mg tablet 80 mg PO QHS Qty: 90 3RF alprazolam 0.25 mg tablet 0.25 mg PO QHS Qty: 30 0RF risperidone 1 mg tablet 1 mg PO QHS Qty: 90 1RF Referrals / Follow Up: Billy Madera MD [Primary Care Provider] -
--- NOTE | 2022-12-25 11:54 | STRESSREP_ITS ---
Stress Test Report Pharmacologic/Lexiscan myocardial perfusion stress test. Indication; 72-year-old female with history of CAD with prior coronary artery stent have symptoms of chest pain. Stress protocol: Resting EKG demonstrates. Normal sinus rhythm. Nonspecific change in the anterior lead. 0.4 mg of regadenoson was infused per usual protocol followed by rapid intravenous saline flush injection continuous EKG monitoring was performed. The maximum heart rate attained was 72 bpm which was 48% of maximum predicted heart . Stress EKG showed[, no significant change from the resting EKG, with maximum heart rate of 72 bpm. Arrhythmia: No arrhythmia demonstrated Symptoms: Patient had, symptoms of chest pain Blood pressure at rest: 118/52 mmHg blood pressure at the end of stress: 128/60 mmHg Myocardial perfusion protocol. 15 mCi ]of Technetium 99m Sestamibi was injected at rest. [ 0.4 mg ]of Regadenoson was infused per usual protocol peak infusion 44.7 mCi ]of Technetium 99m sestamibi was injected. Stress images were obtained stress and rest images were reconstructed and compared in the short axis vertical and horizontal long axis. Gated images were also obtained Perfusion SPECT analysis: Review of the images demonstrate normal uptake of sestamibi at rest, post stress images demonstrate reduced uptake of sestamibi in the anterior septal area consistent with reversible myocardial ischemia. tracer uptake Moderate size. Gated SPECT analysis: The gated ejection fraction is 75 with hyperdynamic left ventricle. Wall motion showed hyperdynamic left ventricle. Conclusion: Abnormal Lexiscan sestamibi With evidence of reversible myocardial ischemia in the LAD distribution Hyperdynamic left ventricle. Patient experienced symptoms of chest pain with Lexiscan. Michelle Clarke MD,FACC,[facility]
[2022-12-25] MEDS: Acetaminophen 325 MG Tablet 650 MG PO ×2 (12:20→16:31)
--- NOTE | 2022-12-25 14:50 | CON.PCM.CA_ITS ---
Assessment & Plan Assessment/Plan (1) Atherosclerotic heart disease of [place] coronary artery without angina pectoris: QUALIFIERS: [place] vs. transplanted heart: [place] heart Qualified Code(s): I25.10 - Atherosclerotic heart disease of [place] coronary artery w ithout angina pectoris (2) COPD (chronic obstructive pulmonary disease): QUALIFIERS: COPD type: COPD with acute exacerbation Qualified Code(s): J44.1 - Chronic obstructive pulmonary disease with (acute) exacerbation (3) Smoking greater than 40 pack years: (4) Flu vaccine need: (5) Chest pain: PLAN: Plan 72-year-old patient presented to the ER at [facility] Complaining of left-sided chest pain Described as pressure mainly aggravated with exertion. Been associated with symptoms of nausea. The chest pain has been onandoff waxes and wanes At time of evaluation at bedside in PCU her symptoms of chest pain resolved This patient has history of CAD with PCI and stent of the mid LAD and the ostial diagonal branch in December 2018 Also patient had history of diabetes mellitus, COPD with asthma and chronic hypoxic respiratory failure she been on 4 L nasal cannula patient had chronic diastolic heart failure with a prior echocardiogram showed LV function preserved with ejection fraction in the range of 60% And she has a mild to moderate pulm hypertension pulm artery systolic pressure around 40 mmHg History of hypertension Hyperlipidemia Chronic normocytic anemia History of morbid obesity with anxiety and depression she lives by herself. And also she is a former tobacco user. And she had obstructive sleep apnea and she been on BiPAP. Cardiac care plan recommendation Patient evaluated by stress test which is abnormal with evidence of reversible ischemia in the lateral and anterior mainly in the LAD and diagonal distribution She underwent cardiac catheterization Which revealed ostial lesion of jailed diagonal branch patency of LAD stent No other significant atherosclerosis noted of the left main, left circumflex and RCA Based on the clinical presentation recommendation would be to maximize medical therapy for angina/adding Ranexa and adding Imdur and continue rest of the current cardiac medication. Patient to follow-up at [facility] cardiology group for continuation of cardiac care. HPI Consult Data Date of Consult: 12/25/22 HPI Narrative Reason for Consultation: Patient history of CADPresenting with chest pain/abnormal stress test HPI Narrative: TIM CEDILLO, is a 72 F who presents [facility] Medical History (Updated 12/25/22 @ 02:[address] Aracelis Gamez MD) Anemia Anxiety and depression Asthma with COPD Atherosclerotic heart disease of bent[place] coronary artery without angina pectoris Back pain Chronic back pain Chronic respiratory failure Diastolic CHF Former smoker Hepatitis HLD (hyperlipidemia) Hypertension Morbid obesity MARK treated with BiPAP Psoriasis Smoking greater than 40 pack years Thyroid nodule Type 2 diabetes mellitus Home Medications Handicap Placard #1 ea 12/12/20 [Rx Last Taken Unknown] flash glucose scanning reader (FreeStyle Emily 2 Means) #1 ea 01/31/21 [Rx Last Taken Unknown] insulin lispro 100 unit/mL subcutaneous pen (Humalog KwikPen (U-100) Insulin) 17 unit (0.17 mL) subcut TID diabetes 3 months #45.9 mL 08/19/21 [Rx Last Taken Unknown] acetaminophen 500 mg tablet 500 mg PO QHS 10/21/21 [History Last Taken Unknown] bisacodyl 5 mg tablet,delayed release (Dulcolax (bisacodyl)) 5 mg PO QHS PRN constipation 30 days #30 tabs 11/13/21 [Rx Last Taken Unknown] nitroglycerin 0.4 mg sublingual tablet 0.4 mg sublingual Q5-15M PRN Pain 01/20/22 [History Last Taken Unknown] pen needle, diabetic 32 gauge x 5/32 #50 ea 02/11/22 [Rx Last Taken Unknown] pantoprazole 40 mg tablet,delayed release 40 mg PO DAILY #90 tabs 04/24/22 [Rx Last Taken Unknown] tizanidine 2 mg tablet 2 mg PO HS PRN muscle spasticity #30 tabs 04/24/22 [Rx Last Taken Unknown] metoprolol tartrate 25 mg tablet 12.5 mg PO BID #90 tabs 05/04/22 [Rx Last Taken Unknown] losartan 25 mg tablet 25 mg PO DAILY #30 tabs 05/13/22 [Rx Last Taken Unknown] furosemide 20 mg tablet (Lasix) 20 mg PO DAILY #30 tabs 06/01/22 [Rx Last Taken Unknown] lidocaine 5 % topical patch 2 patch topical DAILY #30 ea 06/03/22 [Rx Last Taken Unknown] flash glucose sensor (FreeStyle Emily 2 Sensor kit) #2 ea 08/26/22 [Rx Last Taken Unknown] blood sugar diagnostic (True Metrix Glucose Test Strip) #100 ea 09/11/22 [Rx Last Taken Unknown] blood-glucose meter (True Metrix Glucose Meter) #1 ea 09/11/22 [Rx Last Taken Unknown] clopidogrel 75 mg tablet 75 mg PO DAILY #90 tabs 10/01/22 [Rx Last Taken Unknown] isosorbide mononitrate 60 mg tablet,extended release 24 hr 60 mg PO DAILY BP #90 tabs 10/01/22 [Rx Last Taken Unknown] budesonide-formoterol HFA 160 mcg-4.5 mcg/actuation aerosol inhaler (Symbicort) 2 puff inhalation BID Breo too expensive for patient, not covered #10.2 grams 10/15/22 [Rx Last Taken Unknown] budesonide 1 mg/2 mL suspension for nebulization 1 mg (2 mL) inhalation BID #60 mL 11/02/22 [Rx Last Taken Unknown] albuterol sulfate 90 mcg/actuation aerosol inhaler 2 puff inhalation Q6H PRN shortness of breath or wheezing #18 grams 11/06/22 [Rx Last Taken Unknown] ipratropium 0.5 mg-albuterol 3 mg (2.5 mg base)/3 mL nebulization soln 3 ml inhalation Q4H PRN PRN SOB &/OR WHEEZING #180 mL 11/10/22 [Rx Last Taken Unknown] cane #1 ea 11/16/22 [Rx Last Taken Unknown] citalopram 40 mg tablet 40 mg PO QHS depression #90 tabs 11/16/22 [Rx Last Taken Unknown] atorvastatin 80 mg tablet 80 mg PO QHS #90 tabs 11/30/22 [Rx Last Taken Unknown] insulin glargine 100 unit/mL (3 mL) subcutaneous pen (Basaglar KwikPen U-100 Insulin) 36 unit (0.36 mL) subcut DAILY diabetic managment #32.4 mL 12/03/22 [Rx Last Taken Unknown] alprazolam 0.25 mg tablet 0.25 mg PO QHS #30 tabs 12/07/22 [Rx Last Taken Unknown] risperidone 1 mg tablet 1 mg PO QHS anxiety #90 tabs 12/07/22 [Rx Last Taken Unknown] Allergy/AdvReac Type Severity Reaction Status Date / Time amoxicillin [Amoxicillin] Allergy Intermediate Rash Verified 12/03/22 14:22 hydrocodone Allergy Intermediate SWELLING Verified 12/03/22 14:22 gabapentin [From Neurontin] Allergy Shortness Verified 12/03/22 14:22 of breath levofloxacin [From Levaquin] Allergy Hives Verified 12/03/22 14:22 pseudoephedrine HCl Allergy Shortness Verified 12/03/22 14:22 [From Sudafed] of breath red dye Allergy Hives Verified 12/03/22 14:22 prednisone AdvReac Severe mean mood Verified 12/03/22 14:22 codeine AdvReac HEADACHE Verified 12/03/22 14:22 Family History Brother Heart disease Mother Colon cancer Heart disease Surgical History (Updated 12/25/22 @ 02:[address] Aracelis Gamez MD) History of cholecystectomy History of left heart catheterization (LHC) (~09/23/20) Stented coronary artery (12/28/18) Social History Smoking Status: Former smoker pack-years: 40 how long ago did patient quit smokin year ago alcohol intake: never substance use type: does not use caffeine: Yes Type: carbonated beverages and tea what type of physical activity do you participate in: none ROS ROS Narrative 14 point review of systems read unremarkable apart from the current presentation with the patient is complaining of retrosternal chest pain mainly on exertion. Physical Exam Narrative In and evaluated at bedside along with the nursing staff No symptoms of chest pain at rest block inspector showed normal sinus Cardiac exam S1-S2 regular No systolic or diastolic murmur Chest exam is clear to auscultation bilateral Examination lower extremity no lower extremity edema, pedal pulses palpable. Risk Stratification Risk Stratification Applicable: Yes Age >/= 65: Yes >/= 3 CAD Risk Factors (HTN, HLD, DM, family hx of CAD, or current smoker): Yes (Diabetes, hypertension, hyperlipidemia, CAD with prior: Artery stent) Aspirin Use in the Past 7 Days: Yes Severe Angina (>/= episodes in 24 hours): No EKG ST Changes >/= 0.5mm: No Positive Cardiac Marker: No DESMOND Risk Stratification Score: 3 DESMOND % Risk: 13% Risk Objective Data Vital Signs: Vital Signs Temp Pulse Resp BP Pulse Ox O2 Del Method O2 Flow Rate 98.7 F 56 L 14 125/62 H 100 Nasal Cannula 4 12/25/22 06:18 12/25/22 14:30 12/25/22 14:30 12/25/22 14:30 12/25/22 14:30 12/25/22 14:30 12/25/22 14:30 Oxygen Flow Rate (L/min) 4 Oxygen Delivery Method Nasal Cannula Weight: 224 lb 13.944 oz Body Mass Index (BMI) 41.1 Intake & Output: Intake and Output for Last 24 Hours 12/23/22 12/24/22 12/25/22 23:59 23:59 23:59 Intake Total 1131.67 / 1131.67 Balance 1131. / 1131.67 Lab / Micro Data Result Diagrams: 12/25/22 05:55 12/25/22 05:55 Labs: Laboratory Results - last 24 hr 12/25/22 00:15: WBC 11.5 H, RBC 3.96 L, Hgb 11.6 L, Hct 36.4 L, MCV 91.9, MCH 29.3, MCHC 31.9 L, RDW Std Deviation 40.6, RDW Coeff of Malcom 12.1, Plt Count 285, MPV 11.0, Immature Gran % (Auto) 0.700, Neut % (Auto) 71.0 H, Lymph % (Auto) 18.7 L, [place] % (Auto) 6.8, Eos % (Auto) 2.0, Baso % (Auto) 0.8, Absolute Neuts (auto) 8.2 H, Absolute Lymphs (auto) 2.16, Nucleated RBC % 0 12/25/22 00:15: Sodium 133 L, Potassium 3.9, Chloride 94 L, Carbon Dioxide 32.0, Anion Gap 7, BUN 11, Creatinine 0.72, Estim Creat Clear Calc 40.81, Est GFR (MDRD) Af Amer 102, Est GFR (MDRD) Non-Af 85, BUN/Creatinine Ratio 15.3, Glucose 126 H, Calcium 9.5, Troponin I High Sens 8 12/25/22 00:15: Magnesium 1.9 12/25/22 02:45: Troponin I High Sens 10 12/25/22 05:55: WBC 9.9, RBC 3.53 L, Hgb 10.4 L, Hct 32.5 L, MCV 92.1, MCH 29.5, MCHC 32.0, RDW Std Deviation 40.6, RDW Coeff of Malcom 12.1, Plt Count 252, MPV 10.9, Immature Gran % (Auto) 0.500, Neut % (Auto) 69.9, Lymph % (Auto) 20.4, [place] % (Auto) 5.7, Eos % (Auto) 2.7, Baso % (Auto) 0.8, Absolute Neuts (auto) 6.9, Absolute Lymphs (auto) 2.03, Nucleated RBC % 0 12/25/22 05:55: Sodium 135 L, Potassium 3.4 L, Chloride 97 L, Carbon Dioxide 31.0, Anion Gap 7, BUN 13, Creatinine 0.82, Estim Creat Clear Calc 49.77, Est GFR (MDRD) Af Amer 89, Est GFR (MDRD) Non-Af 73, BUN/Creatinine Ratio 15.9, Glucose 215 H, Calcium 9.0, Total Bilirubin 0.30, AST 11 L, ALT 20, Alkaline Phosphatase 109, Total Protein 6.0 L, Albumin 3.1 L, Globulin 2.9, Albumin/Globulin Ratio 1.1 12/25/22 05:55: Troponin I High Sens 9 12/25/22 06:21: POC Glucose 205 H 12/25/22 11:08: POC Glucose 276 H Cardiology Labs/Tests 12/25/22 00:15: WBC 11.5 H, RBC 3.96 L, Hgb 11.6 L, Hct 36.4 L, MCV 91.9, MCH 29.3, MCHC 31.9 L, Plt Count 285, MPV 11.0, Immature Gran % (Auto) 0.700, Neut % (Auto) 71.0 H, Lymph % (Auto) 18.7 L, [place] % (Auto) 6.8, Eos % (Auto) 2.0, Baso % (Auto) 0.8, Absolute Neuts (auto) 8.2 H, Nucleated RBC % 0 12/25/22 00:15: Sodium 133 L, Potassium 3.9, Chloride 94 L, Carbon Dioxide 32.0, Anion Gap 7, BUN 11, Creatinine 0.72, Est GFR (MDRD) Af Amer 102, Est GFR (MDRD) Non-Af 85, BUN/Creatinine Ratio 15.3, Glucose 126 H, Calcium 9.5 12/25/22 00:15: Magnesium 1.9 12/25/22 05:55: WBC 9.9, RBC 3.53 L, Hgb 10.4 L, Hct 32.5 L, MCV 92.1, MCH 29.5, MCHC 32.0, Plt Count 252, MPV 10.9, Immature Gran % (Auto) 0.500, Neut % (Auto) 69.9, Lymph % (Auto) 20.4, [place] % (Auto) 5.7, Eos % (Auto) 2.7, Baso % (Auto) 0.8, Absolute Neuts (auto) 6.9, Nucleated RBC % 0 12/25/22 05:55: Sodium 135 L, Potassium 3.4 L, Chloride 97 L, Carbon Dioxide 31.0, Anion Gap 7, BUN 13, Creatinine 0.82, Est GFR (MDRD) Af Amer 89, Est GFR (MDRD) Non-Af 73, BUN/Creatinine Ratio 15.9, Glucose 215 H, Calcium 9.0, Total Bilirubin 0.30 Rhythm: EKG: ECHO: Stress Test: Cardiac Cath: PCI: CT Surgery: Holter monitor: EPS: PPM: CXR: Chest CT Scan: Radiography Diagnostic Testing: Radiology Impression Chest X-Ray 12/25/22 00:30 IMPRESSION: Stable exam with no radiographic evidence of acute cardiopulmonary disease. Electronically Signed: Jorge Mcdonnell MD at 1:23 EDT ,
--- NOTE | 2022-12-25 15:25 | CASEMGMT ---
RN MUSTAPHA Face to Face with patient for initial transition planning/care coordination assessment. RN CM introduced self and role at [facility]. Patient lying in bed, alert and oriented. Patient willing to participate in assessment and is able to answer all questions appropriately. Care providers, pharmacy, and demographics verified. Patient wishes to discharge home, denies need for home health at this time. Patient states she has no further needs or concerns at this time. CM to follow for discharge planning needs that may arise. PCP: Santy Specialists: Yaakov, stretcher leveler operator; Jovon, pinked edge sewing machine operator; Marty, talent management manager; , gunnery/ordnance officer Preferred Pharmacy: [facility] Insurance: [employer] Prescription Benefit: yes Living Will/HPOA: none LNOK: daughter in law Living Arrangements: Patient lives alone is a first floor apartment with 3 steps and railing to enter the home. Patient states she is independent at home Transportation: self, public DME/HHC: Patient has shower chair, cane, grab bars, walker, nebulizer, pulse ox and home oxygen through [employer] at 4lpm with portability. Patient states she has no one that can bring her portable oxygen at home and request that [facility] take her home at discharge. Disposition Plan: Patient to discharge home with follow-up plans in place. Jyoti STORY, RN, CM
[2022-12-25] MEDS: Insulin Lispro 100 UNIT/ML INSULN.PEN 30 UNIT SC (15:39)
[2022-12-25 16:05] LABS: Bedside Glucose 186 mg/dL (74-106)
--- NOTE | 2022-12-25 16:06 | CL.D_ITS ---
Patient Name: TIM CEDILLO Study Date: 12/25/2022 Performing: Wade Ferguson MD Ht: 62 inches 157.48 cm : 1950 Wt: 225.2 lbs 102 kg Age: 72 Gender: female BSA: 2.01 PROCEDURE(S) PERFORMED [id number]-([id number])LHC/COR CLINICAL PROFILE AND INDICATIONS Indications: Suspected CAD Heart Failure: None Stress/Imaging Stress/Image Study Performed: No CAD Presentations: Unstable angina. CONCLUSIONS Coronary artery disease with previously placed stent in the mid left anterior descending artery and first diagonal vessel noted to be patent with ostial stenosis of the diagonal vessel. Unchanged compared to the previous cardiac catheterization. RECOMMENDATIONS Medical therapy DESCRIPTION OF PROCEDURE The patient arrived to the procedure lab. The risks and benefits of the procedure as well as a full description of our services here and current unavailability of surgical backup were fully explained to the patient and/or their significant other prior to the catheterization. The Timeout was completed, verifying the correct patient and procedure. The patient's procedural site was prepped and draped in the usual fashion. Local anesthetic was given subcutaneously to right radial region with Lidocaine 2%. Using a modified Seldinger technique, arterial access was obtained via the ulnar a 6Fr sheath was inserted. Left Coronary Artery selective angiography was performed in multiple views using a 5 Fr. 4.0 [place] catheter. Right Coronary Artery selective angiography was then performed in multiple views using a 5 Fr. 4.0 [place] catheter.The arterial sheath was pulled and a TR Band was applied for hemostasis CORONARY ANGIOGRAPHY DOMINANCE: Right Dominant LEFT HEART ASSESSMENT Left Ventricular Ejection Fraction: by Echo 55 % Normal LV wall motion Normal Left Ventricular systolic function LEFT MAIN: Angiographically normal LEFT ANTERIOR DESCENDING ARTERY: Previously placed stent is patent with a stent in the first diagonal vessel with a ostium being about 70% stenosed. RIGHT CORONARY ARTERY: Mild luminal irregularities COMPLICATIONS No Complications PROCEDURE MEDICATIONS Versed 1 mg IV Fentanyl 50 mcg IV Versed 1 mg IV Oxygen: 2 L/min via nasal cannula Heparin given IA 12/25/2022 13:45:17 Verapamil 2.5mg, Ntg 100mcgs, 3000 units of Heparin given IA 12/25/2022 13:45:17 SUMMARY OF HEMODYNAMIC DATA Time AIR REST ECG 13:28:18 AO 92/43 (65) SA 13:48:24 Signed By Wade Ferguson MD On 12/25/2022 16:06:01 Wade Ferguson MD
[2022-12-25] MEDS: Ipratropium 0.5 MG/2.5 ML SOLUTION INHALATION (19:25)
[2022-12-25] MEDS: RisperiDONE 1 MG Tablet PO (22:06)
[2022-12-25] MEDS: Citalopram 40 MG TABLET PO (22:06)
[2022-12-25] MEDS: Atorvastatin Calcium 80 MG Tablet PO (22:06)
[2022-12-25] MEDS: Insulin Glargine-YFGN 100 UNIT/ML Pen 40 UNIT SC (22:08)
[2022-12-25 22:35] LABS: Bedside Glucose 279 mg/dL (74-106)
[2022-12-25] MEDS: ALPRAZolam 0.25 MG Tablet PO (23:24)
[2022-12-26 03:30] VITALS: BP 140/60; PULSE 73; RESP 18; TEMP 37.1; O2SAT 100
--- NOTE | 2022-12-26 03:53 | CPS ---
Pt refused bipap this evening.
[2022-12-26 03:58] LABS: Absolute Neutrophil Count 5.5 X10^3/uL (2.0-7.7); Basophil# 0.08 X10^3/uL; Eosinophil# 0.23 X10^3/uL; Eosinophils% 2.9 % (0-5); Hematocrit 34.3 % (37-47); Hemoglobin 11.1 g/dL (12.0-15.0); Lymphocyte % 18.9 % (19-41); Mean Corp Hgb Conc 32.4 g/dL (32-36); Mean Corpuscular Hgb 29.6 pg (27.0-32.0); Mean Corpuscular Volume 91.5 fL (81-99); Mean Platelet Vol. 11.2 fl (6.2-12.0); Monocyte# 0.59 X10^3/uL; Monocyte% 7.4 % (0-10); NRBC Flagged by Analyzer 0 % (0-5); Neutrophil # 5.49 X10^3/uL (2.7-7.7); Neutrophil % 69.4 % (47-70); Platelet Count 252 K/mm3 (150-450); RBC Distribution Width CV 12.3 % (11.6-14.6); RBC Distribution Width SD 40.8 fl (35.1-43.9); Red Blood Count 3.75 M/mm3 (4.2-5.4); White Blood Count 7.9 K/mm3 (4.4-11.0)
[2022-12-26 05:21] LABS: Anion Gap 7 (5-15); BUN 12 mg/dL (7-18); BUN/Creat Ratio 13.1 RATIO (10-20); Calcium,Total 9.5 mg/dL (8.5-10.1); Chloride 102 mmol/L (98-107); Cholesterol 126 mg/dL (200); Creatinine, Serum 0.92 mg/dL (0.55-1.02); EST Glomerular Filtration Rate 64 mL/min (>60); Est Glom Filt Rate - Afr Amer 78 mL/min (>60); Estimated Creatinine Clearance 44.36 ml/min; Glucose 251 mg/dL (74-106); High Density Lipoprotein 55 mg/dL; Magnesium 2.1 mg/dL (1.6-2.6); Potassium 3.9 mmol/L (3.5-5.1); Sodium Level 138 mmol/L (136-145); Triglycerides 135 mg/dL; Very Low Density Lipoprotein 27 mg/dL (5-40)
[2022-12-26 06:00] VITALS: BMI 40.4
[2022-12-26 06:45] VITALS: PULSE 68; RESP 20; O2SAT 96
[2022-12-26] MEDS: Budesonide Respules 0.5 MG/2 ML AMPUL.NEB. INHALATION (06:45)
[2022-12-26] MEDS: Ipratropium 0.5 MG/2.5 ML SOLUTION INHALATION (06:45)
[2022-12-26] MEDS: Insulin Lispro 100 UNIT/ML INSULN.PEN 30 UNIT SC (08:36)
[2022-12-26] MEDS: Aspirin 81 MG TAB.CHEW PO (08:43)
[2022-12-26] MEDS: Furosemide 20 MG Tablet PO (08:44)
[2022-12-26] MEDS: Enoxaparin 40 MG/0.4 ML Syringe SC (08:44)
[2022-12-26] MEDS: Isosorbide Mononitrate 60 MG Tablet PO (08:44)
[2022-12-26] MEDS: Clopidogrel Bisulfate 75 MG Tablet PO (08:44)
[2022-12-26] MEDS: Pantoprazole Sodium 40 MG Tablet PO (08:44)
[2022-12-26 08:45] VITALS: BP 149/55; PULSE 62
[2022-12-26] MEDS: Metoprolol Tartrate 25 MG Tablet 12.5 MG PO (08:45)
[2022-12-26] MEDS: 0.9% Saline Lock 10 ML Syringe IV (08:46)
[2022-12-26] MEDS: Losartan Potassium 25 MG Tablet PO (08:47)
[2022-12-26 09:30] VITALS: BP 143/53; PULSE 58; RESP 16; TEMP 37.1; O2SAT 98
--- NOTE | 2022-12-26 09:47 | PCM.DC ---
Discharge Instructions Diet Discharge Diet: Low fat / Low cholesterol, 1800 Calorie Control Diet and 2000 mg Sodium Diet Activity Discharge Activity: Return to Normal Activity Weight Bearing Status: Weight bearing as tolerated Dressing / Incision Call your doctor if you observe: Fever of 101 or Higher, Coldness, Increased Pain, Numbness or Tingling, Change in Color, Inability to urinate, Inability to have a bowel movement, Using more than 1 pad per hour, Shortness of breath, Dizziness, Fainting spells, Swelling in the ankles, Chest pain, Prolonged hiccupping, Increased palpitations (irregular heartbeat) and Calf discomfort Follow Up Care When: IN 2 WEEKS Test Results: Test results from this visit will be discussed in further detail at your follow-up appointment, if applicable. Discharge Plan Admission Admit Date/Time: 12/25/22 13:38 Primary Reason for Your Visit: unstable angina/abnormal stress test Attending Provider: Nico Sweet Primary Care Provider: Billy Madera Consulting Providers: Aracelis Gamez ; Michelle Clarke Discharge Orders/Prescriptions Prescriptions: Continued (DME) Handicap Placard See Rx Instructions .ROUTE .MEDSUPPLY Qty: 1 0RF Rx Instructions: As directed, length of time 3 years lidocaine 5 % adhesive patch,medicated 2 patch topical DAILY Qty: 30 3RF Rx Instructions: leave on most painful area for up to 12 hrs tizanidine 2 mg tablet 2 mg PO HS PRN (Reason: muscle spasticity) Qty: 30 0RF budesonide 1 mg/2 mL suspension for nebulization 1 mg inhalation BID Qty: 60 6RF citalopram 40 mg tablet 40 mg PO QHS Qty: 90 3RF (DME) cane Device See Rx Instructions .Route Qty: 1 0RF Rx Instructions: As directed acetaminophen 500 MG tablet 500 mg PO QHS Rx Instructions: over the counter. no prescription required. atorvastatin 80 mg tablet 80 mg PO QHS Qty: 90 3RF clopidogrel 75 mg tablet 75 mg PO DAILY Qty: 90 3RF isosorbide mononitrate 60 mg tablet extended release 24 hr 60 mg PO DAILY Qty: 90 3RF pantoprazole 40 mg tablet,delayed release (DR/EC) 40 mg PO DAILY Qty: 90 1RF losartan 25 mg tablet 25 mg PO DAILY Qty: 30 2RF nitroglycerin 0.4 mg tablet, sublingual 0.4 mg SUBLINGUAL Q5-15M PRN (Reason: Pain) Qty: 30 0RF furosemide [Lasix] 20 mg tablet 20 mg PO DAILY Qty: 30 2RF metoprolol tartrate 25 mg tablet 12.5 mg PO BID Qty: 90 2RF Rx Instructions: (DME) FreeStyle Emily 2 [facility] [place] See Rx Instructions .ROUTE .MEDSUPPLY Qty: 1 0RF Rx Instructions: As directed bisacodyl [Dulcolax (bisacodyl)] 5 mg tablet,delayed release (DR/EC) 5 mg PO QHS PRN (Reason: constipation) 30 Days Qty: 30 3RF (DME) pen needle, diabetic 32 gauge x needle See Rx Instructions .ROUTE .MEDSUPPLY Qty: 50 0RF Rx Instructions: 4x/day (DME) FreeStyle Emily 2 Sensor Kit See Rx Instructions .ROUTE .MEDSUPPLY Qty: 2 3RF Rx Instructions: As directed (DME) blood-glucose meter [True Metrix Glucose Meter] [facility] See Rx Instructions .Route Qty: 1 0RF Rx Instructions: As directed (DME) True Metrix Glucose Test Strip Strip See Rx Instructions .Route Qty: 100 7RF Rx Instructions: tid budesonide-formoterol [Symbicort] 160-4.5 mcg/actuation HFA aerosol inhaler 2 puff inhalation BID Qty: 10.2 0RF albuterol sulfate 90 mcg/actuation HFA aerosol inhaler 2 puff INHALATION Q6H PRN (Reason: shortness of breath or wheezing) Qty: 18 3RF ipratropium-albuterol 0.5 mg-3 mg(2.5 mg base)/3 mL solution for nebulization 3 ml INHALATION Q4H PRN PRN (Reason: SOB &/OR WHEEZING) Qty: 180 6RF alprazolam 0.25 mg tablet 0.25 mg PO QHS Qty: 30 0RF risperidone 1 mg tablet 1 mg PO QHS Qty: 90 1RF Changed insulin lispro [Humalog KwikPen Insulin] 100 unit/mL insulin pen 35 unit SC TID 90 Days Qty: 45.9 3RF Rx Instructions: Hold if glucose less than 130 mg/dl insulin glargine [Basaglar KwikPen U-100 Insulin] 100 unit/mL (3 mL) insulin pen 40 unit subcut DAILY Qty: 32.4 1RF Rx Instructions: daily at bedtime Referrals / Follow Up: Kenny Ibarra MD [Med Staff - Active Staff] - Within 1 Month Haroon Nuno MD [Med Staff - Active Staff] - Within 1 Month Billy Madera MD [Primary Care Provider] - Within 1 Week (For better control of diabetes) Disposition Disposition (needs filled in before D/C Order can be placed): Home, Self Care
--- NOTE | 2022-12-26 09:52 | DS.PCM_ITS ---
Providers Date of Admission: 12/25/22 Date of Discharge: 12/26/22 Primary Care Physician: Dr. Billy Madera MD Consultations 12/25/22 12:26 Consult: Cardiology Routine Consulting Provider: Michelle Clarke Reason for Consult: abnormal stress test, ACS EMERGENT Consult: No MD Notified: Yes Date Notified: 12/25/22 Time Notified: 12:26 Method of Notification: Verbal Reason For Visit: CHEST PAIN Diagnosis Discharge Diagnosis (1) Chest pain: Status: Acute Code(s): R07.9 - Chest pain, unspecified Plan The patient is a 72 y/o F is admitted for chest discomfort approximately 5 hours prior to ED arrival located in the left chest, continuous, worsened by exertion reported as dull aching with associated nausea, dyspnea and lightheadedness. Patient had associated nausea dyspnea and lightheadedness waxing and waning in nature. #1. Unstable angina: EKG in ED with sinus rhythm with no acute evidence of ischemia unchanged from previous, CXR w/ chronic changes with no acute cardiopulmonary findings otherwise, initial trop 8. Patient is being admitted to PCU. Serial troponins are negative. Pharmacological stress test showed reversible myocardial ischemia over anterior and septal area moderate-sized. Gated EF 75% with hyperdynamic LV. Patient was taken for cardiac cath which showed ostial lesion of jailed diagonal branch patent LAD stent unchanged from the previous cardiac cath. No other significant atherosclerotic disease noted in left main circumflex and RCA. Optimization of medical therapy of angina. Patient has allergy to red dye therefore cannot take Ranexa. Prescription for all her cardiac medications aspirin, Plavix, metoprolol, losartan, Lasix, and atorvastatin sent to patient pharmacy as she was not sure. Continue follow-up with vacuum drier tender Dr. Ibarra and Taj Quick NP #2. CAD: Status post PCI ostial diagonal and mid LAD 12/26/2018 #3. Chronic Diastolic CHF: 08/11/2021 echocardiogram with normal LV size, modera te concentric LVH, LV systolic function normal, EF 60%, pulmonary artery systolic pressure 40 mmHg, stage I diastolic dysfunction. #4. COPD/asthma overlap with chronic hypoxic respiratory failure (4L NC): on home oxygen supplementation, will hold home inhalers in the interim transition to ATC budesonide therapy, PRN albuterol, HOB, IS parameters. #5. Diabetes mellitus type II: Hold oral home regimen, continue home insulin, ADA diet, accu checks w/ ISS. 12/26 patient glucose was very high uncontrolled. Her average glucose was around 250 mg/dL. Humalog insulin and Lantus dose increased. Patient is aware of hypoglycemia symptoms. Advised not to take insulin if glucose is less than 130mg/dL. #6. Hypertension: Continue home regimen including metoprolol, losartan, isosorbide, Lasix, PRN hydralazine. 12/26: Blood pressure is controlled #7. Hyperlipidemia: Continue home statin regimen. Fasting profile within normal limit LDL 44, HDL 55. Continue high intensity atorvastatin. #8. Chronic normocytic anemia: Admission hemoglobin 11.6, MCV 91.9, baseline appears primarily 11-12, continue to trend. #9. Anxiety and depression: continue patient home risperidone, citalopram, alprazolam home regimen. #10. Morbid Obesity: Weight loss and lifestyle changes encouraged. #11. Other comorbidities include obstructive sleep apnea, former smoker: On BiPAP at night. DVT prophylaxis: Lovenox. CODE status: Patient HCPOA and living will are not in place. She notes she was unable to make any medical decisions she would want her [id number] Farideh to be her medical decision-maker. Discussed CODE status at length including difference between FULL code, DNR-CCA and DNR-CC status. Following discussions about the differences in these status, requested Full Code status. Discharge medication reconciliation done. Discharge follow-up instructions completed. Discharge process discussed with the patient and all questions were answered to patient's satisfaction. Total time spent, exact 35 minutes on discharge meds reconciliation, examination, coordination of care with nurses and ancillary staff, review of imaging and blood test and discussion with the patient on follow-up instructions. Medications at Discharge Home Medications Handicap Placard #1 ea 12/12/20 flash glucose scanning reader (FreeStyle Emily 2 [place]) #1 ea 01/31/21 acetaminophen 500 mg tablet 500 mg PO QHS 10/21/21 bisacodyl 5 mg tablet,delayed release (Dulcolax (bisacodyl)) 5 mg PO QHS PRN constipation 30 days #30 tabs 11/13/21 pen needle, diabetic 32 gauge x #50 ea 02/11/22 tizanidine 2 mg tablet 2 mg PO HS PRN muscle spasticity #30 tabs 04/24/22 lidocaine 5 % topical patch 2 patch topical DAILY #30 ea 06/03/22 flash glucose sensor (FreeStyle Emily 2 Sensor kit) #2 ea 08/26/22 blood sugar diagnostic (True Metrix Glucose Test Strip) #100 ea 09/11/22 blood-glucose meter (True Metrix Glucose Meter) #1 ea 09/11/22 budesonide-formoterol HFA 160 mcg-4.5 mcg/actuation aerosol inhaler (Symbicort) 2 puff inhalation BID Breo too expensive for patient, not covered #10.2 grams 10/15/22 budesonide 1 mg/2 mL suspension for nebulization 1 mg (2 mL) inhalation BID #60 mL 11/02/22 albuterol sulfate 90 mcg/actuation aerosol inhaler 2 puff inhalation Q6H PRN shortness of breath or wheezing #18 grams 11/06/22 ipratropium 0.5 mg-albuterol 3 mg (2.5 mg base)/3 mL nebulization soln 3 ml inhalation Q4H PRN PRN SOB &/OR WHEEZING #180 mL 11/10/22 cane #1 ea 11/16/22 citalopram 40 mg tablet 40 mg PO QHS depression #90 tabs 11/16/22 alprazolam 0.25 mg tablet 0.25 mg PO QHS #30 tabs 12/07/22 risperidone 1 mg tablet 1 mg PO QHS anxiety #90 tabs 12/07/22 atorvastatin 80 mg tablet 80 mg PO QHS #90 tabs 12/26/22 clopidogrel 75 mg tablet 75 mg PO DAILY #90 tabs 12/26/22 furosemide 20 mg tablet (Lasix) 20 mg PO DAILY #30 tabs 12/26/22 insulin glargine 100 unit/mL (3 mL) subcutaneous pen (Basaglar KwikPen U-100 Insulin) 40 unit (0.4 mL) subcut DAILY diabetic managment #32.4 mL 12/26/22 insulin lispro 100 unit/mL subcutaneous pen (Humalog KwikPen (U-100) Insulin) 35 unit (0.35 mL) subcut TID diabetes 3 months #45.9 mL 12/26/22 isosorbide mononitrate 60 mg tablet,extended release 24 hr 60 mg PO DAILY BP #90 tabs 12/26/22 losartan 25 mg tablet 25 mg PO DAILY #30 tabs 12/26/22 metoprolol tartrate 25 mg tablet 12.5 mg PO BID #90 tabs 12/26/22 nitroglycerin 0.4 mg sublingual tablet 0.4 mg sublingual Q5-15M PRN Pain #30 tabs 12/26/22 pantoprazole 40 mg tablet,delayed release 40 mg PO DAILY #90 tabs 12/26/22 Physical Exam Narrative Seen and examined. Patient does not have any chest pain or pressure. Had cardiac cath yesterday after abnormal test. Physical exam General: Alert, Oriented x3, Cooperative HEENT: Atraumatic, PERRLA, EOMI, Normocephalic Oral: Oral mucosa moist. No Gingival or Mucosal Lesions/ Ulcerations Neck: Supple, No JVD, Negative Carotid Bruits Lungs: Air entry diminished in bilateral lung bases. No crepitation/rhonchi Cardiovascular: Regular sinus rhythm, Normal S1, Normal S2, No murmurs Abdomen: Bowel Sounds Present, Soft, Non Tender, Non-Distended : No renal angle tenderness. No suprapubic tenderness. Extremities: Minimal ankle edema, Capillary Refill Less than 3 Seconds Skin: No rashes, No breakdown Musculoskeletal: No Tenderness to Palpation of Joints or Extremities. ROM full. Neurological: Cranial nerves II-XII grossly intact, DTR 2+/4 and Symmetrical, Neuro grossly intact Psych/Mental Status: Flat affect Weight / BMI Weight Weight: 221 lb 3.2 oz Body Mass Index (BMI) 40.4 ABG / Lab / Microbiology Data Result Diagrams: 12/26/22 03:02 12/26/22 03:02 Laboratory: Laboratory Results - last 24 hr 12/25/22 11:08: POC Glucose 276 H 12/25/22 15:39: POC Glucose 186 H 12/25/22 21:59: POC Glucose 279 H 12/26/22 03:02: Sodium 138, Potassium 3.9, Chloride 102, Carbon Dioxide 29.0, Anion Gap 7, BUN 12, Creatinine 0.92, Estim Creat Clear Calc 44.36, Est GFR (MDRD) Af Amer 78, Est GFR (MDRD) Non-Af 64, BUN/Creatinine Ratio 13.1, Glucose 251 H, Calcium 9.5, Magnesium 2.1, Triglycerides 135, Cholesterol 126, LDL Cholesterol 44, VLDL Cholesterol 27, HDL Cholesterol 55 12/26/22 03:02: WBC 7.9, RBC 3.75 L, Hgb 11.1 L, Hct 34.3 L, MCV 91.5, MCH 29.6, MCHC 32.4, RDW Std Deviation 40.8, RDW Coeff of Malcom 12.3, Plt Count 252, MPV 1 1.2, Immature Gran % (Auto) 0.400, Neut % (Auto) 69.4, Lymph % (Auto) 18.9 L, [place] % (Auto) 7.4, Eos % (Auto) 2.9, Baso % (Auto) 1.0, Absolute Neuts (auto) 5.5, Absolute Lymphs (auto) 1.50, Nucleated RBC % 0 Meaningful Use Info Meaningful Use Diagnoses (Choose all that apply): None applicable Discharge Plan Admission Admit Date/Time: 12/25/22 13:38 Primary Reason for Your Visit: unstable angina/abnormal stress test Attending Provider: Nico Sweet Primary Care Provider: Billy Madera Consulting Providers: Aracelis Gamez ; Michelle Clarke Discharge Orders/Prescriptions Prescriptions: Continued (DME) Handicap Placard See Rx Instructions .ROUTE .MEDSUPPLY Qty: 1 0RF Rx Instructions: As directed, length of time 3 years lidocaine 5 % adhesive patch,medicated 2 patch topical DAILY Qty: 30 3RF Rx Instructions: leave on most painful area for up to 12 hrs tizanidine 2 mg tablet 2 mg PO HS PRN (Reason: muscle spasticity) Qty: 30 0RF budesonide 1 mg/2 mL suspension for nebulization 1 mg inhalation BID Qty: 60 6RF citalopram 40 mg tablet 40 mg PO QHS Qty: 90 3RF (DME) cane Device See Rx Instructions .Route Qty: 1 0RF Rx Instructions: As directed acetaminophen 500 MG tablet 500 mg PO QHS Rx Instructions: over the counter. no prescription required. atorvastatin 80 mg tablet 80 mg PO QHS Qty: 90 3RF clopidogrel 75 mg tablet 75 mg PO DAILY Qty: 90 3RF isosorbide mononitrate 60 mg tablet extended release 24 hr 60 mg PO DAILY Qty: 90 3RF pantoprazole 40 mg tablet,delayed release (DR/EC) 40 mg PO DAILY Qty: 90 1RF losartan 25 mg tablet 25 mg PO DAILY Qty: 30 2RF nitroglycerin 0.4 mg tablet, sublingual 0.4 mg SUBLINGUAL Q5-15M PRN (Reason: Pain) Qty: 30 0RF furosemide [Lasix] 20 mg tablet 20 mg PO DAILY Qty: 30 2RF metoprolol tartrate 25 mg tablet 12.5 mg PO BID Qty: 90 2RF Rx Instructions: (DME) FreeStyle Emily 2 [facility] [place] See Rx Instructions .ROUTE .MEDSUPPLY Qty: 1 0RF Rx Instructions: As directed bisacodyl [Dulcolax (bisacodyl)] 5 mg tablet,delayed release (DR/EC) 5 mg PO QHS PRN (Reason: constipation) 30 Days Qty: 30 3RF (DME) pen needle, diabetic 32 gauge x 5/32 needle See Rx Instructions .ROUTE .MEDSUPPLY Qty: 50 0RF Rx Instructions: 4x/day (DME) FreeStyle Emily 2 Sensor Kit See Rx Instructions .ROUTE .MEDSUPPLY Qty: 2 3RF Rx Instructions: As directed (DME) blood-glucose meter [True Metrix Glucose Meter] [facility] See Rx Instructions .Route Qty: 1 0RF Rx Instructions: As directed (DME) True Metrix Glucose Test Strip Strip See Rx Instructions .Route Qty: 100 7RF Rx Instructions: tid budesonide-formoterol [Symbicort] 160-4.5 mcg/actuation HFA aerosol inhaler 2 puff inhalation BID Qty: 10.2 0RF albuterol sulfate 90 mcg/actuation HFA aerosol inhaler 2 puff INHALATION Q6H PRN (Reason: shortness of breath or wheezing) Qty: 18 3RF ipratropium-albuterol 0.5 mg-3 mg(2.5 mg base)/3 mL solution for nebulization 3 ml INHALATION Q4H PRN PRN (Reason: SOB &/OR WHEEZING) Qty: 180 6RF alprazolam 0.25 mg tablet 0.25 mg PO QHS Qty: 30 0RF risperidone 1 mg tablet 1 mg PO QHS Qty: 90 1RF Changed insulin lispro [Humalog KwikPen Insulin] 100 unit/mL insulin pen 35 unit SC TID 90 Days Qty: 45.9 3RF Rx Instructions: Hold if glucose less than 130 mg/dl insulin glargine [Basaglar KwikPen U-100 Insulin] 100 unit/mL (3 mL) insulin pen 40 unit subcut DAILY Qty: 32.4 1RF Rx Instructions: daily at bedtime Referrals / Follow Up: Kenny Ibarra MD [Med Staff - Active Staff] - Within 1 Month Haroon Nuno MD [Med Staff - Active Staff] - Within 1 Month Billy Madera MD [Primary Care Provider] - Within 1 Week (For better control of diabetes) Disposition Disposition (needs filled in before D/C Order can be placed): Home, Self Care Charges/Coding Visit Charges Inpatient E&M: 65462 Disch Hosp >30min
[2022-12-26] MEDS: Insulin Glargine-YFGN 100 UNIT/ML Pen 15 UNIT SC (12:01)
[2022-12-26] MEDS: Insulin Lispro 100 UNIT/ML INSULN.PEN 35 UNIT SC (12:02)
[2022-12-26] MEDS: Insulin Lispro 100 UNIT/ML INSULN.PEN SC (12:03)
[2022-12-26 12:10] LABS: Bedside Glucose 196 mg/dL (74-106)
[2022-12-26 12:34] VITALS: BP 138/65; PULSE 61; RESP 18; TEMP 37.2; O2SAT 99
[2022-12-26 12:56] LABS: Bedside Glucose 320 mg/dL (74-106)
== END 2022-12-26 12:34 | disposition home or self-care (01) | DRG 287 ==
LOC: ED 01:37 → PCU 01:56
PROVIDERS: Admitting Provider Family Medicine; Emergency Provider Emergency Medicine; PCP Internal Medicine; Referring Provider Family Medicine; Visit Provider Internal Medicine
DX: I25.110 Atherosclerotic heart disease of native coronary artery with unstable angina pectoris (principal); J44.9 Chronic obstructive pulmonary disease, unspecified; I50.32 Chronic diastolic (congestive) heart failure; I11.0 Hypertensive heart disease with heart failure; J96.11 Chronic respiratory failure with hypoxia; Z68.41 Body mass index [BMI] 40.0-44.9, adult; E66.01 Morbid (severe) obesity due to excess calories; Z79.4 Long term (current) use of insulin; E11.9 Type 2 diabetes mellitus without complications; E78.5 Hyperlipidemia, unspecified; G47.33 Obstructive sleep apnea (adult) (pediatric); F41.9 Anxiety disorder, unspecified; F32.A Depression, unspecified; G89.29 Other chronic pain; Z79.51 Long term (current) use of inhaled steroids; Z79.899 Other long term (current) drug therapy; Z87.891 Personal history of nicotine dependence; Z95.1 Presence of aortocoronary bypass graft; Z95.5 Presence of coronary angioplasty implant and graft; Z99.81 Dependence on supplemental oxygen
CPT/HCPCS: 36415; 71045; 78452; 80048; 80053; 80061; 82962; 83735; 84484; 85025; 93005; 93017; 93454; 94640; 96360; 96361; 96372; 99152; 99153; 99221; 99252; 99285; A9500; J7030; J7040; Q9967; A4216; C1769; C1894; G0378; G0463; J2785

== ENCOUNTER 2022-12-27 17:14 | Emergency (ER) | payer MEDICARE, SELFPAY ==
[2021-11-03 12:08] VITALS: BMI 34.9
[2022-12-27 17:15] VITALS: BP 156/63; PULSE 79; RESP 17; TEMP 36.4; O2SAT 99; BMI 43.4
--- NOTE | 2022-12-27 17:52 | EKG12_ITS ---
Test Reason : Blood Pressure : / mmHG Vent. Rate : 072 BPM Atrial Rate : 072 BPM P-R Int : 154 ms QRS Dur : 082 ms QT Int : 414 ms P-R-T Axes : 061 017 054 degrees QTc Int : 453 ms Normal sinus rhythm Normal ECG When compared with ECG of 25-DEC-2022 02:55, No significant change was found Confirmed by BANG MELVIN, ROSALIA ([id number]), news video editor JAVIER COLBY ([id number]) on 12/29/2022 9:10:50 AM Referred By: KIMBERLEE Confirmed By:ROSALIA CUENCA MD
--- NOTE | 2022-12-27 17:53 | EDS_ITS ---
HPI <SYMONE Sosa - Last Filed: 12/27/22 20:47> History of Present Illness Chief Complaint: Dizziness Narrative Narrative: Patient is a 72-year-old female with history of De La Vega's esophagus, chest pain, obesity, COPD who has not spoke with 4 days, who presents to the emergency department for midsternal chest pain, shortness of breath after eating at around 12:05 PM today. Patient was recently admitted to the hospital, released yesterday. Patient had a full cardiac work-up including a stress test which then had a cardiac cath that showed no acute process. Patient states that she has been unable to get her Imdur and Ranexa secondary to not have enough money, she will be getting these in the next 24 hours. She states that the shortness of breath and chest pain made her anxious and she called the ambulance. She is on 4 L of nasal cannula continuously, patient is asymptomatic here. PFS <SYMONE Sosa - Last Filed: 12/27/22 20:47> [facility] Medical History (Updated 12/27/22 @ 20:27 by SYMONE Sosa) Anemia Anxiety and depression Asthma with COPD Atherosclerotic heart disease of [place] coronary artery without angina pectoris Back pain Chronic back pain Chronic respiratory failure Diastolic CHF Former smoker Hepatitis HLD (hyperlipidemia) Hypertension Morbid obesity MARK treated with BiPAP Psoriasis Smoking greater than 40 pack years Thyroid nodule Type 2 diabetes mellitus Home Medications Handicap Placard #1 ea 12/12/20 [Rx Last Taken Unknown] flash glucose scanning reader (Innovectra Emily 2 [place]) #1 ea 01/31/21 [Rx Last Taken Unknown] acetaminophen 500 mg tablet 500 mg PO QHS 10/21/21 [History Last Taken Unknown] bisacodyl 5 mg tablet,delayed release (Dulcolax (bisacodyl)) 5 mg PO QHS PRN constipation 30 days #30 tabs 11/13/21 [Rx Last Taken Unknown] pen needle, diabetic 32 gauge x #50 ea 02/11/22 [Rx Last Taken Unknown] tizanidine 2 mg tablet 2 mg PO HS PRN muscle spasticity #30 tabs 04/24/22 [Rx Last Taken Unknown] lidocaine 5 % topical patch 2 patch topical DAILY #30 ea 06/03/22 [Rx Last Taken Unknown] flash glucose sensor (FreeStyle Emily 2 Sensor kit) #2 ea 08/26/22 [Rx Last Taken Unknown] blood sugar diagnostic (True Metrix Glucose Test Strip) #100 ea 09/11/22 [Rx Last Taken Unknown] blood-glucose meter (True Metrix Glucose Meter) #1 ea 09/11/22 [Rx Last Taken Unknown] budesonide-formoterol HFA 160 mcg-4.5 mcg/actuation aerosol inhaler (Symbicort) 2 puff inhalation BID Breo too expensive for patient, not covered #10.2 grams 10/15/22 [Rx Last Taken Unknown] budesonide 1 mg/2 mL suspension for nebulization 1 mg (2 mL) inhalation BID #60 mL 11/02/22 [Rx Last Taken Unknown] albuterol sulfate 90 mcg/actuation aerosol inhaler 2 puff inhalation Q6H PRN shortness of breath or wheezing #18 grams 11/06/22 [Rx Last Taken Unknown] ipratropium 0.5 mg-albuterol 3 mg (2.5 mg base)/3 mL nebulization soln 3 ml inhalation Q4H PRN PRN SOB &/OR WHEEZING #180 mL 11/10/22 [Rx Last Taken Unknown] cane #1 ea 11/16/22 [Rx Last Taken Unknown] citalopram 40 mg tablet 40 mg PO QHS depression #90 tabs 11/16/22 [Rx Last Taken Unknown] alprazolam 0.25 mg tablet 0.25 mg PO QHS #30 tabs 12/07/22 [Rx Last Taken Unknown] risperidone 1 mg tablet 1 mg PO QHS anxiety #90 tabs 12/07/22 [Rx Last Taken Unknown] atorvastatin 80 mg tablet 80 mg PO QHS #90 tabs 12/26/22 [Rx Last Taken Unknown] clopidogrel 75 mg tablet 75 mg PO DAILY #90 tabs 12/26/22 [Rx Last Taken Unknown] furosemide 20 mg tablet (Lasix) 20 mg PO DAILY #30 tabs 12/26/22 [Rx Last Taken Unknown] insulin glargine 100 unit/mL (3 mL) subcutaneous pen (Basaglar KwikPen U-100 Insulin) 40 unit (0.4 mL) subcut DAILY diabetic managment #32.4 mL 12/26/22 [Rx Last Taken Unknown] insulin lispro 100 unit/mL subcutaneous pen (Humalog KwikPen (U-100) Insulin) 35 unit (0.35 mL) subcut TID diabetes 3 months #45.9 mL 12/26/22 [Rx Last Taken Unknown] isosorbide mononitrate 60 mg tablet,extended release 24 hr 60 mg PO DAILY BP #90 tabs 12/26/22 [Rx Last Taken Unknown] losartan 25 mg tablet 25 mg PO DAILY #30 tabs 12/26/22 [Rx Last Taken Unknown] metoprolol tartrate 25 mg tablet 12.5 mg PO BID #90 tabs 12/26/22 [Rx Last Taken Unknown] nitroglycerin 0.4 mg sublingual tablet 0.4 mg sublingual Q5-15M PRN Pain #30 tabs 12/26/22 [Rx Last Taken Unknown] pantoprazole 40 mg tablet,delayed release 40 mg PO DAILY #90 tabs 12/26/22 [Rx Last Taken Unknown] Allergy/AdvReac Type Severity Reaction Status Date / Time amoxicillin [Amoxicillin] Allergy Intermediate Rash Verified 12/03/22 14:22 hydrocodone Allergy Intermediate SWELLING Verified 12/03/22 14:22 gabapentin [From Neurontin] Allergy Shortness Verified 12/03/22 14:22 of breath levofloxacin [From Levaquin] Allergy Hives Verified 12/03/22 14:22 pseudoephedrine HCl Allergy Shortness Verified 12/03/22 14:22 [From Sudafed] of breath red dye Allergy Hives Verified 12/03/22 14:22 prednisone AdvReac Severe mean mood Verified 12/03/22 14:22 codeine AdvReac HEADACHE Verified 12/03/22 14:22 Family History Brother Heart disease Mother Colon cancer Heart disease Surgical History History of cholecystectomy History of left heart catheterization (LHC) (~09/23/20) Stented coronary artery (12/28/18) Social History Smoking Status: Former smoker pack-years: 40 how long ago did patient quit smokin year ago alcohol intake: never substance use type: does not use caffeine: Yes Type: carbonated beverages and tea what type of physical activity do you participate in: none ROS <SYMONE Sosa - Last Filed: 12/27/22 20:47> ROS ED ROS Narrative Constitutional: Negative for fever, chills, weight loss, weakness Eyes: Negative for vision loss, vision change, double vision ENT: Negative for any sore throat, ear pain, congestion Cardiovascular: Negative for any palpitations. Positive chest pain tightness Respiratory: Negative for any cough, sputum production, hemoptysis, dyspnea on exertion, orthopnea. Positive for dyspnea Gastrointestinal: Negative for any abdominal pain, nausea, vomiting, diarrhea, constipation, blood in stool, blood in vomit : Negative for any urinary frequency, dysuria, retention, blood in urine Muscle skeletal: Negative for any muscle joint pain, stiffness, myalgias, arthralgias, neck pain, back pain Neurological: Negative for any headache, syncope, numbness or tingling, dizziness Skin: Negative for any rashes, lumps, itching, abrasions, lacerations Psychiatric: Negative for any depression, anxiety, stress, suicidal ideation, homicidal ideation Hematologic: Negative for any easy bruising, excessive bruising, easy bleeding Allergies: Negative for any eczema, hives, rash EXAM <SYMONE Sosa - Last Filed: 12/27/22 20:47> Physical Exam Narrative Exam Narrative: Vital signs reviewed. HEET: Head normocephalic atraumatic, TMs clear bilaterally. Posterior pharynx is clear, moist mucous membranes. Nares clear bilaterally. Neck: Supple with no lymphadenopathy or tenderness. No signs of meningismus, negative jolt sign. Cardiac: Regular rate and rhythm no murmurs gallops or rubs, equal peripheral pulses bilaterally. Respiratory: Patient has some rhonchorous breath sounds in the bases however no crackles. No chest tenderness. Abdomen: Soft, nontender, nondistended. No abdominal bruit or pulsatile masses. No hepatosplenomegaly Extremities: No peripheral edema, no signs of gross trauma or deformity. Active full range of motion of all extremities. Neuro: Cranial nerves II through XII intact, no focal neurological deficits. Skin: Clean dry and intact with no rash, purpura, petechiae, vesicles or pustules. Backs/flank: No CVA tenderness, no midline spinal tenderness, no deformity. Psych: Normal mood and affect. No SI, HI or acute psychosis. Const Vital Signs: 12/27/22 17:15 12/27/22 18:07 12/27/22 19:17 Temperature 97.6 F L Temperature Source Temporal Pulse Rate 79 Respiratory Rate 17 Respiratory Effort Short of Breath Respiratory Pattern Tachypnea Blood Pressure 156/63 H Blood Pressure Mean 94 Pulse Ox 99 97 Oxygen Delivery Method Nasal Cannula Nasal Cannula Oxygen Flow Rate (L/min) 4 4 12/27/22 21:03 Temperature Temperature Source Pulse Rate Respiratory Rate 20 H Respiratory Effort Respiratory Pattern Blood Pressure Blood Pressure Mean Pulse Ox Oxygen Delivery Method Nasal Cannula Oxygen Flow Rate (L/min) 3 Positive well nourished and well developed General Appearance ED: well developed <Dr. Jose Luis Goodwin DO - Last Filed: 12/28/22 00:29> Physical Exam Const Vital Signs: 12/27/22 17:15 12/27/22 18:07 12/27/22 19:17 Temperature 97.6 F L Temperature Source Temporal Pulse Rate 79 Respiratory Rate 17 Respiratory Effort Short of Breath Respiratory Pattern Tachypnea Blood Pressure 156/63 H Blood Pressure Mean 94 Pulse Ox 99 97 Oxygen Delivery Method Nasal Cannula Nasal Cannula Oxygen Flow Rate (L/min) 4 4 12/27/22 21:03 Temperature Temperature Source Pulse Rate Respiratory Rate 20 H Respiratory Effort Respiratory Pattern Blood Pressure Blood Pressure Mean Pulse Ox Oxygen Delivery Method Nasal Cannula Oxygen Flow Rate (L/min) 3 MDM <SYMONE Sosa - Last Filed: 12/27/22 20:47> MDM Lab Data Labs: Laboratory Results - last 24 hr 12/27/22 12/27/22 12/27/22 17:47 17:47 17:47 WBC 10.8 RBC 3.90 L Hgb 11.5 L Hct 36.1 L MCV 92.6 MCH 29.5 MCHC 31.9 L RDW Std Deviation 41.0 RDW Coeff of [place] 12.2 Plt Count 272 MPV 11.1 Immature Gran % (Auto) 0.600 Neut % (Auto) 77.6 H Lymph % (Auto) 13.5 L [place] % (Auto) 6.0 Eos % (Auto) 1.7 Baso % (Auto) 0.6 Absolute Neuts (auto) 8.4 H Absolute Lymphs (auto) 1.45 Nucleated RBC % 0 Sodium 135 L Potassium 3.5 Chloride 97 L Carbon Dioxide 32.0 Anion Gap 6 BUN 16 Creatinine 0.83 Estim Creat Clear Calc 49.17 Est GFR (MDRD) Af Amer 87 Est GFR (MDRD) Non-Af 72 BUN/Creatinine Ratio 19.3 Glucose 166 H Calcium 9.2 Total Bilirubin 0.20 AST 21 ALT 24 Alkaline Phosphatase 114 Troponin I High Sens 6 B-Natriuretic Peptide 60.2 Total Protein 6.6 Albumin 3.4 Globulin 3.2 Albumin/Globulin Ratio 1.1 Lipase 21 12/27/22 19:51 WBC RBC Hgb Hct MCV MCH MCHC RDW Std Deviation RDW Coeff of [place] Plt Count MPV Immature Gran % (Auto) Neut % (Auto) Lymph % (Auto) [place] % (Auto) Eos % (Auto) Baso % (Auto) Absolute Neuts (auto) Absolute Lymphs (auto) Nucleated RBC % Sodium Potassium Chloride Carbon Dioxide Anion Gap BUN Creatinine Estim Creat Clear Calc Est GFR (MDRD) Af Amer Est GFR (MDRD) Non-Af BUN/Creatinine Ratio Glucose Calcium Total Bilirubin AST ALT Alkaline Phosphatase Troponin I High Sens 6 B-Natriuretic Peptide Total Protein Albumin Globulin Albumin/Globulin Ratio Lipase Radiography Diagnostic Testing: Clinical Impression(s) from Imaging Studies Chest X-Ray 12/27/22 18:14 IMPRESSION: 1. Stable pleural and parenchymal disease left lower hemithorax. 2. No acute cardiopulmonary abnormality. Electronically Signed: Raz Joe MD at 18:37 EDT , Treatment and Re-Evaluation :: Patient appears well, patient appears nontoxic, vital signs are stable. Patient presents the emergency department with chest pain, shortness of breath that occurred around noon today. Patient was recently discharged and had a complete cardiac work-up including stress test, cath and was discharged. Patient received a full cardiac work-up here in the emergency department. All radiologic examinations were read, reviewed by the emergency department attending. From these reads, a plan of care will be put in place. Patient's laboratory studies show a normal CBC, chemistries were unremarkable. Patient's initial troponin was 6 with a BNP of 60.2 which is negative. Patient's had negative troponins since August has not been over 10. Patient is symptom-free since she has been here. Chest x-ray shows chronic changes however no acute process. At this time, there is no evidence of any acute ACS, IN. No evidence of pneumonia. Patient will receive a second troponin and if this is negative, I do feel confident the patient can be discharged, she will follow-up outpatient. Patient's repeat troponin was 6 which is negative. Patient stable for discharge <Dr. Jose Luis Goodwin, DO - Last Filed: 12/28/22 00:29> MDM MDM Narrative Medical decision making narrative: Interventions / MDM: Differential diagnosis: Acute coronary syndrome, chest pain Diagnosis considered but do not suspect: N/A My EKG interpretation: Sinus rate of 72, no ST or T wave changes. Imaging independently reviewed and interpreted by myself: Chest x-ray: No acute process External documents reviewed: N/A Test considered but not ordered:N/A ED course: Recurrent transient chest pain today. History of coronary disease with stent x2 in 2019. She admitted in the hospital heart cath 2 days ago due to abnormal stress test patent LAD stent there was a 70% stenosis ostial lesion with recommended medical management per cardiology. Symptom-free on exam. Exam nontoxic chronic 4 L oxygen heart was regular lungs were clear. Cardiac work-up troponin negative x2 EKG normal. Remains symptom-free. From cardiology recommendation she was to be on Imdur and Ranexa. Her prescriptions were sent she was unable to fill due to cost of $26. She states her son was helping her and is currently at the pharmacy for pickup. She will pick this up and take the medicines. She will follow-up with her rotary drum dyer. Return precautions. Re-evaluation: stable Disposition discussed with patient/family/significant other: Patient Case discussed with consulting clinician: N/A Lab Data Labs: Laboratory Results - last 24 hr 12/27/22 12/27/22 12/27/22 17:47 17:47 17:47 WBC 10.8 RBC 3.90 L Hgb 11.5 L Hct 36.1 L MCV 92.6 MCH 29.5 MCHC 31.9 L RDW Std Deviation 41.0 RDW Coeff of [place] 12.2 Plt Count 272 MPV 11.1 Immature Gran % (Auto) 0.600 Neut % (Auto) 77.6 H Lymph % (Auto) 13.5 L [place] % (Auto) 6.0 Eos % (Auto) 1.7 Baso % (Auto) 0.6 Absolute Neuts (auto) 8.4 H Absolute Lymphs (auto) 1.45 Nucleated RBC % 0 Sodium 135 L Potassium 3.5 Chloride 97 L Carbon Dioxide 32.0 Anion Gap 6 BUN 16 Creatinine 0.83 Estim Creat Clear Calc 49.17 Est GFR (MDRD) Af Amer 87 Est GFR (MDRD) Non-Af 72 BUN/Creatinine Ratio 19.3 Glucose 166 H Calcium 9.2 Total Bilirubin 0.20 AST 21 ALT 24 Alkaline Phosphatase 114 Troponin I High Sens 6 B-Natriuretic Peptide 60.2 Total Protein 6.6 Albumin 3.4 Globulin 3.2 Albumin/Globulin Ratio 1.1 Lipase 12/27/22 19:51 WBC RBC Hgb Hct MCV MCH MCHC RDW Std Deviation RDW Coeff of [place] Plt Count MPV Immature Gran % (Auto) Neut % (Auto) Lymph % (Auto) [place] % (Auto) Eos % (Auto) Baso % (Auto) Absolute Neuts (auto) Absolute Lymphs (auto) Nucleated RBC % Sodium Potassium Chloride Carbon Dioxide Anion Gap BUN Creatinine Estim Creat Clear Calc Est GFR (MDRD) Af Amer Est GFR (MDRD) Non-Af BUN/Creatinine Ratio Glucose Calcium Total Bilirubin AST ALT Alkaline Phosphatase Troponin I High Sens 6 B-Natriuretic Peptide Total Protein Albumin Globulin Albumin/Globulin Ratio Lipase Radiography Diagnostic Testing: Clinical Impression(s) from Imaging Studies Chest X-Ray 12/27/22 18:14 IMPRESSION: 1. Stable pleural and parenchymal disease left lower hemithorax. 2. No acute cardiopulmonary abnormality. Electronically Signed: Raz Joe MD at 18:37 EDT , Discharge Plan Triage Chief Complaint: Dizziness ED Midlevel Provider: Ethan Barroso ED Provider: Jose Luis Goodwin Dx/Rx/DC Orders Clinical Impression: Shortness of breath, Chest pain Instructions: ED Chest Pain, Noncardiac, ED Dyspnea Prescriptions: No Action (DME) Handicap Placard See Rx Instructions .ROUTE .MEDSUPPLY Qty: 1 0RF Rx Instructions: As directed, length of time 3 years lidocaine 5 % adhesive patch,medicated 2 patch topical DAILY Qty: 30 3RF Rx Instructions: leave on most painful area for up to 12 hrs tizanidine 2 mg tablet 2 mg PO HS PRN (Reason: muscle spasticity) Qty: 30 0RF budesonide 1 mg/2 mL suspension for nebulization 1 mg inhalation BID Qty: 60 6RF citalopram 40 mg tablet 40 mg PO QHS Qty: 90 3RF (DME) cane Device See Rx Instructions .Route Qty: 1 0RF Rx Instructions: As directed acetaminophen 500 MG tablet 500 mg PO QHS Rx Instructions: over the counter. no prescription required. insulin lispro [Humalog KwikPen Insulin] 100 unit/mL insulin pen 35 unit SC TID 90 Days Qty: 45.9 3RF Rx Instructions: Hold if glucose less than 130 mg/dl insulin glargine [Basaglar KwikPen U-100 Insulin] 100 unit/mL (3 mL) insulin pen 40 unit subcut DAILY Qty: 32.4 1RF Rx Instructions: daily at bedtime atorvastatin 80 mg tablet 80 mg PO QHS Qty: 90 3RF clopidogrel 75 mg tablet 75 mg PO DAILY Qty: 90 3RF isosorbide mononitrate 60 mg tablet extended release 24 hr 60 mg PO DAILY Qty: 90 3RF pantoprazole 40 mg tablet,delayed release (DR/EC) 40 mg PO DAILY Qty: 90 1RF losartan 25 mg tablet 25 mg PO DAILY Qty: 30 2RF nitroglycerin 0.4 mg tablet, sublingual 0.4 mg SUBLINGUAL Q5-15M PRN (Reason: Pain) Qty: 30 0RF furosemide [Lasix] 20 mg tablet 20 mg PO DAILY Qty: 30 2RF metoprolol tartrate 25 mg tablet 12.5 mg PO BID Qty: 90 2RF Rx Instructions: (DME) FreeStyle Emily 2 [place] Misc See Rx Instructions .ROUTE .MEDSUPPLY Qty: 1 0RF Rx Instructions: As directed bisacodyl [Dulcolax (bisacodyl)] 5 mg tablet,delayed release (DR/EC) 5 mg PO QHS PRN (Reason: constipation) 30 Days Qty: 30 3RF (DME) pen needle, diabetic 32 gauge x 5/32 needle See Rx Instructions .ROUTE .MEDSUPPLY Qty: 50 0RF Rx Instructions: 4x/day (DME) FreeStyle Emily 2 Sensor Kit See Rx Instructions .ROUTE .MEDSUPPLY Qty: 2 3RF Rx Instructions: As directed (DME) blood-glucose meter [True Metrix Glucose Meter] [facility] [place] See Rx Instructions .Route Qty: 1 0RF Rx Instructions: As directed (DME) True Metrix Glucose Test Strip Strip See Rx Instructions .Route Qty: 100 7RF Rx Instructions: tid budesonide-formoterol [Symbicort] 160-4.5 mcg/actuation HFA aerosol inhaler 2 puff inhalation BID Qty: 10.2 0RF albuterol sulfate 90 mcg/actuation HFA aerosol inhaler 2 puff INHALATION Q6H PRN (Reason: shortness of breath or wheezing) Qty: 18 3RF ipratropium-albuterol 0.5 mg-3 mg(2.5 mg base)/3 mL solution for nebulization 3 ml INHALATION Q4H PRN PRN (Reason: SOB &/OR WHEEZING) Qty: 180 6RF alprazolam 0.25 mg tablet 0.25 mg PO QHS Qty: 30 0RF risperidone 1 mg tablet 1 mg PO QHS Qty: 90 1RF Primary Care Provider: Billy Madera Referrals: Billy Madera MD [Primary Care Provider] - Activity Restrictions/Additional Instructions: Please ensure that you take your medications as prescribed. Please follow-up with your rotary drum dyer. Return for any worsening symptoms. You had 2 negative high sensory troponins today, no evidence of heart attack. Disposition Disposition: Home, Self Care
[2022-12-27] MEDS: Mag Hydrox/Al Hydrox/Simeth 30 ML UDC PO (18:03)
[2022-12-27 18:14] LABS: Absolute Lymphocyte Count 1.45 X10^3/uL (0.83-4.51); Absolute Neutrophil Count 8.4 X10^3/uL (2.0-7.7); Basophil# 0.06 X10^3/uL; Basophil% 0.6 % (0-1); Eosinophil# 0.18 X10^3/uL; Eosinophils% 1.7 % (0-5); Hematocrit 36.1 % (37-47); Hemoglobin 11.5 g/dL (12.0-15.0); Lymphocyte # 1.45 X10^3/ul (0.83-4.51); Lymphocyte % 13.5 % (19-41); Mean Corp Hgb Conc 31.9 g/dL (32-36); Mean Corpuscular Hgb 29.5 pg (27.0-32.0); Mean Corpuscular Volume 92.6 fL (81-99); Mean Platelet Vol. 11.1 fl (6.2-12.0); Monocyte# 0.65 X10^3/uL; NRBC Flagged by Analyzer 0 % (0-5); Neutrophil # 8.36 X10^3/uL (2.7-7.7); Neutrophil % 77.6 % (47-70); Platelet Count 272 K/mm3 (150-450); RBC Distribution Width CV 12.2 % (11.6-14.6); White Blood Count 10.8 K/mm3 (4.4-11.0)
--- NOTE | 2022-12-27 18:14 | RAD_ITS ---
EXAM: XR CHEST, 1 VIEW CLINICAL INDICATION: Cough TECHNIQUE: Frontal view of the chest. COMPARISON: 12/25/2022. FINDINGS: LUNGS AND PLEURAL SPACES: Stable pleural and parenchymal disease left lower hemithorax. No pneumothorax. No effusion. HEART: Unremarkable. Cardiac silhouette not enlarged. MEDIASTINUM: Central airways and mediastinal contour are unremarkable. BONES/JOINTS: Unremarkable. SOFT TISSUES: Unremarkable. RAD/Chest 1 View (Portable) IMPRESSION: 1. Stable pleural and parenchymal disease left lower hemithorax. 2. No acute cardiopulmonary abnormality. Electronically Signed: Raz Joe MD at 18:37 EDT ,
[2022-12-27 18:32] LABS: ALB/GLOB Ratio 1.1 RATIO (0.9-2.4); AST(SGOT) 21 U/L (15-37); Alanine Aminotransfer ALT/SGPT 24 U/L (13-56); Albumin, Serum 3.4 g/dL (3.2-5.0); Alkaline Phosphatase 114 U/L (45-117); Anion Gap 6 (5-15); BUN 16 mg/dL (7-18); BUN/Creat Ratio 19.3 RATIO (10-20); Calcium,Total 9.2 mg/dL (8.5-10.1); Chloride 97 mmol/L (98-107); Creatinine, Serum 0.83 mg/dL (0.55-1.02); EST Glomerular Filtration Rate 72 mL/min (>60); Est Glom Filt Rate - Afr Amer 87 mL/min (>60); Estimated Creatinine Clearance 49.17 ml/min; Globulin 3.2 g/dL (2.2-4.2); Glucose 166 mg/dL (74-106); Lipase 21 U/L (13-75); Potassium 3.5 mmol/L (3.5-5.1); Protein, Total 6.6 g/dL (6.4-8.2); Sodium Level 135 mmol/L (136-145); Troponin-I HS (w/2H Reflex) 6 pg/mL (3.0-54.0)
[2022-12-27 18:33] LABS: BNP,B-Type NATRIURETIC PEPTIDE 60.2 pg/mL (0-100)
[2022-12-27 19:17] VITALS: O2SAT 97
[2022-12-27 20:05] LABS: Reflex Troponin-HS? (from REC) Y
[2022-12-27 20:37] LABS: Troponin-I HS 6 pg/mL (3.0-54.0)
[2022-12-27 21:03] VITALS: RESP 20
== END 2022-12-28 00:49 | disposition home or self-care (01) ==
PROVIDERS: Nurse Practitioner; Emergency Provider Emergency Medicine; PCP Internal Medicine; Visit Provider Emergency Medicine
DX: R06.02 Shortness of breath (principal); J44.9 Chronic obstructive pulmonary disease, unspecified; I50.30 Unspecified diastolic (congestive) heart failure; I11.0 Hypertensive heart disease with heart failure; E11.9 Type 2 diabetes mellitus without complications; R07.9 Chest pain, unspecified; E66.9 Obesity, unspecified; Z87.891 Personal history of nicotine dependence; Z95.5 Presence of coronary angioplasty implant and graft; E78.5 Hyperlipidemia, unspecified; I25.10 Atherosclerotic heart disease of native coronary artery without angina pectoris
CPT/HCPCS: 71045; 80053; 83690; 83880; 84484; 85025; 93005; 99284; A4216

== ENCOUNTER 2023-01-04 22:46 | Emergency (ER) | payer MEDICARE, SELFPAY ==
[2021-11-03 12:08] VITALS: BMI 34.9
[2023-01-04 22:48] VITALS: BP 170/71; PULSE 73; RESP 15; TEMP 37; O2SAT 97; BMI 42.0
[2023-01-04 22:51] VITALS: TEMP 37; BMI 42.0
[2023-01-04] MEDS: hydrALAZINE 20 MG/ML Vial IV (23:20)
[2023-01-04] MEDS: cloNIDine HCl 0.1 MG Tablet PO (23:20)
[2023-01-04 23:24] VITALS: BP 174/77
[2023-01-04 23:27] LABS: Absolute Lymphocyte Count 2.31 X10^3/uL (0.83-4.51); Absolute Neutrophil Count 7.8 X10^3/uL (2.0-7.7); Basophil# 0.08 X10^3/uL; Basophil% 0.7 % (0-1); Eosinophil# 0.24 X10^3/uL; Eosinophils% 2.1 % (0-5); Hematocrit 37.3 % (37-47); Hemoglobin 12.2 g/dL (12.0-15.0); Lymphocyte # 2.31 X10^3/ul (0.83-4.51); Lymphocyte % 20.7 % (19-41); Mean Corp Hgb Conc 32.7 g/dL (32-36); Mean Corpuscular Hgb 30.1 pg (27.0-32.0); Mean Corpuscular Volume 92.1 fL (81-99); Mean Platelet Vol. 11.3 fl (6.2-12.0); Monocyte# 0.62 X10^3/uL; Monocyte% 5.6 % (0-10); NRBC Flagged by Analyzer 0 % (0-5); Neutrophil # 7.76 X10^3/uL (2.7-7.7); Neutrophil % 69.5 % (47-70); Platelet Count 277 K/mm3 (150-450); RBC Distribution Width CV 12.1 % (11.6-14.6); RBC Distribution Width SD 40.6 fl (35.1-43.9); Red Blood Count 4.05 M/mm3 (4.2-5.4); White Blood Count 11.2 K/mm3 (4.4-11.0)
--- NOTE | 2023-01-04 23:40 | EX.ED.DYSGE1 ---
HPI History of Present Illness Chief Complaint: Chest Pain Informant: patient and EMS Narrative Narrative: Patient is a 72-year-old female from home with past medical history of smoking/COPD and chronic need for oxygen as well as type 2 diabetes and coronary artery disease. Patient reports this evening that she was sitting at home when she was having a headache and feeling dizzy. She states that she tried to climb into bed and noticed that her whole body had a pins and needle sensation and she also felt a heaviness on her chest. She states because of her known history of coronary artery disease requiring a stent she was concerned this could be a cardiac event and therefore called 911 and was brought in for evaluation. Of note patient states she did take 3 nitro at home with minimal symptom improvement [facility] Medical History Anemia Anxiety and depression Asthma with COPD Atherosclerotic heart disease of [place] coronary artery without angina pectoris Back pain Chest pain Chronic back pain Chronic respiratory failure COPD (chronic obstructive pulmonary disease) Diastolic CHF Former smoker Hepatitis HLD (hyperlipidemia) Hypertension Morbid obesity MARK treated with BiPAP Psoriasis Smoking greater than 40 pack years Thyroid nodule Type 2 diabetes mellitus Home Medications Handicap Placard #1 ea 12/12/20 [Rx Last Taken Unknown] flash glucose scanning reader (Merku Emily 2 Walnut) #1 ea 01/31/21 [Rx Last Taken Unknown] acetaminophen 500 mg tablet 500 mg PO QHS 10/21/21 [History Last Taken Unknown] bisacodyl 5 mg tablet,delayed release (Dulcolax (bisacodyl)) 5 mg PO QHS PRN constipation 30 days #30 tabs 11/13/21 [Rx Last Taken Unknown] pen needle, diabetic 32 gauge x /32 #50 ea 02/11/22 [Rx Last Taken Unknown] tizanidine 2 mg tablet 2 mg PO HS PRN muscle spasticity #30 tabs 04/24/22 [Rx Last Taken Unknown] lidocaine 5 % topical patch 2 patch topical DAILY #30 ea 06/03/22 [Rx Last Taken Unknown] flash glucose sensor (iFormularyyle Emily 2 Sensor kit) #2 ea 08/26/22 [Rx Last Taken Unknown] blood sugar diagnostic (True Metrix Glucose Test Strip) #100 ea 09/11/22 [Rx Last Taken Unknown] blood-glucose meter (True Metrix Glucose Meter) #1 ea 09/11/22 [Rx Last Taken Unknown] budesonide-formoterol HFA 160 mcg-4.5 mcg/actuation aerosol inhaler (Symbicort) 2 puff inhalation BID Breo too expensive for patient, not covered #10.2 grams 10/15/22 [Rx Last Taken Unknown] budesonide 1 mg/2 mL suspension for nebulization 1 mg (2 mL) inhalation BID #60 mL 11/02/22 [Rx Last Taken Unknown] albuterol sulfate 90 mcg/actuation aerosol inhaler 2 puff inhalation Q6H PRN shortness of breath or wheezing #18 grams 11/06/22 [Rx Last Taken Unknown] ipratropium 0.5 mg-albuterol 3 mg (2.5 mg base)/3 mL nebulization soln 3 ml inhalation Q4H PRN PRN SOB &/OR WHEEZING #180 mL 11/10/22 [Rx Last Taken Unknown] cane #1 ea 11/16/22 [Rx Last Taken Unknown] citalopram 40 mg tablet 40 mg PO QHS depression #90 tabs 11/16/22 [Rx Last Taken Unknown] alprazolam 0.25 mg tablet 0.25 mg PO QHS #30 tabs 12/07/22 [Rx Last Taken Unknown] risperidone 1 mg tablet 1 mg PO QHS anxiety #90 tabs 12/07/22 [Rx Last Taken Unknown] atorvastatin 80 mg tablet 80 mg PO QHS #90 tabs 12/26/22 [Rx Last Taken Unknown] clopidogrel 75 mg tablet 75 mg PO DAILY #90 tabs 12/26/22 [Rx Last Taken Unknown] furosemide 20 mg tablet (Lasix) 20 mg PO DAILY #30 tabs 12/26/22 [Rx Last Taken Unknown] insulin glargine 100 unit/mL (3 mL) subcutaneous pen (Basaglar KwikPen U-100 Insulin) 40 unit (0.4 mL) subcut DAILY diabetic managment #32.4 mL 12/26/22 [Rx Last Taken Unknown] insulin lispro 100 unit/mL subcutaneous pen (Humalog KwikPen (U-100) Insulin) 35 unit (0.35 mL) subcut TID diabetes 3 months #45.9 mL 12/26/22 [Rx Last Taken Unknown] isosorbide mononitrate 60 mg tablet,extended release 24 hr 60 mg PO DAILY BP #90 tabs 12/26/22 [Rx Last Taken Unknown] losartan 25 mg tablet 25 mg PO DAILY #30 tabs 12/26/22 [Rx Last Taken Unknown] metoprolol tartrate 25 mg tablet 12.5 mg PO BID #90 tabs 12/26/22 [Rx Last Taken Unknown] nitroglycerin 0.4 mg sublingual tablet 0.4 mg sublingual Q5-15M PRN Pain #30 tabs 12/26/22 [Rx Last Taken Unknown] pantoprazole 40 mg tablet,delayed release 40 mg PO DAILY #90 tabs 12/26/22 [Rx Last Taken Unknown] Allergy/AdvReac Type Severity Reaction Status Date / Time amoxicillin [Amoxicillin] Allergy Intermediate Rash Verified 12/03/22 14:22 hydrocodone Allergy Intermediate SWELLING Verified 12/03/22 14:22 gabapentin [From Neurontin] Allergy Shortness Verified 12/03/22 14:22 of breath levofloxacin [From Levaquin] Allergy Hives Verified 12/03/22 14:22 pseudoephedrine HCl Allergy Shortness Verified 12/03/22 14:22 [From Sudafed] of breath red dye Allergy Hives Verified 12/03/22 14:22 prednisone AdvReac Severe mean mood Verified 12/03/22 14:22 codeine AdvReac HEADACHE Verified 12/03/22 14:22 Family History Brother Heart disease Mother Colon cancer Heart disease Surgical History History of cholecystectomy History of left heart catheterization (LHC) (~09/23/20) Stented coronary artery (12/28/18) Social History Smoking Status: Former smoker pack-years: 40 how long ago did patient quit smokin year ago alcohol intake: never substance use type: does not use caffeine: Yes Type: carbonated beverages and tea what type of physical activity do you participate in: none ROS ROS ED Constitutional Constitutional ED: Denies chills or fever(s) Eyes Eyes: Denies blurry vision or change in vision ENT ENT ED: Denies sore throat Cardiovascular Cardiovascular: Reports chest pain; Denies palpitations or racing heartbeat Respiratory/Chest Respiratory/Chest: Denies cough or dyspnea Gastrointestinal Gastrointestinal: Denies abdominal pain, diarrhea, nausea or vomiting Genitourinary Genitourinary ED: Denies dysuria Musculoskeletal Musculoskeletal: Denies myalgias Integumentary Denies rash Neurologic Neurologic: Reports headache(s) and other Details: Positive dizziness Hematologic/Lymphatic Hematologic/Lymphatic: Denies easy bleeding or easy bruising EXAM Physical Exam Const Vital Signs: 01/04/23 22:48 01/04/23 22:51 01/04/23 23:24 Temperature 98.6 F 98.6 F Temperature Source Oral Oral Pulse Rate 73 Respiratory Rate 15 Blood Pressure 170/71 H 174/77 H Blood Pressure Mean 104 109 Pulse Ox 97 Oxygen Delivery Method Room Air Oxygen Flow Rate (L/min) 01/04/23 23:47 01/05/23 00:44 Temperature Temperature Source Pulse Rate 87 Respiratory Rate 26 H Blood Pressure 111/93 H 165/67 H Blood Pressure Mean 99 Pulse Ox 100 100 Oxygen Delivery Method Nasal Cannula Oxygen Flow Rate (L/min) 4 Positive well nourished, well developed and obese General Appearance ED: well developed Nutritional Appearance: obese HEENT Reports dry mucous membranes HEENT Narrative: No tongue or lip swelling no oral lesions no airway edema or compromise Mouth ED: Yes dry mucous membranes Mouth: dry mucous membranes Eyes PERRL and EOMs intact bilaterally General Eye ED: Negative for scleral icterus Neck supple and no JVD Neck Narrative: No nuchal rigidity or meningeal signs present Chest Wall Chest Narrative: No bony deformity or crepitance noted Resp Resp Narrative: Breath sounds are diminished throughout with diffuse expiratory wheeze and faint rhonchi in the bilateral bases patient does have splinting and occasional tachypnea Cardio regular rate and regular rhythm Rate: other Other Details: Radial pulses are plus 2 out of 4 bilaterally are equal and symmetric GI non-tender and non-distended GI Narrative: Soft nontender nondistended with normal active bowel sounds no voluntary guarding or rigidity no pulsatile mass. Patient does have a reducible ventral hernia present Auscultation: normoactive bowel sounds Palpation: soft Extremity normal to inspection Extremity Narrative: No asymmetric edema no pitting edema negative Homans' sign bilaterally Neuro oriented x3, CN's II-XII intact bilaterally and no sensory deficits noted Neuro Narrative: Cranial nerves II through XII are grossly intact there are no focal neurologic deficit. No pronator drift no dysmetria no truncal ataxia. NIH stroke scale score is 0 Sensorium / Orientation: alert Psych Psych Narrative: Patient has a nervous and anxious affect Skin no rashes or lesions noted MDM MDM MDM Narrative Medical decision making narrative: Patient presented to the ER hypertensive and with multiple complaint. She reported feeling lightheaded/dizzy and chest discomfort. Chart review reveals she was seen in the ER 6 days ago and had 2 normal troponins at a value of 6 for each time. Chart review also reveals that on December 25 of this year she had a heart cath which showed a patent stent and stable disease and recommendation was for medical management. Based on the patient's multiple symptom complex there is concern this could be a neurologic event versus vertigo versus hypertensive emergency versus acute coronary syndrome versus acute kidney injury. Therefore elected to perform basic laboratory studies. Labs showed a troponin of 5 which was technically lower than her value from 6 days ago going against cardiac event. Labs showed no signs of severe electrolyte derangement or acute kidney injury. EKG was sinus rhythm. Urine showed +2 bacteria but there are no white blood cells present and patient does not have dysuria therefore will be sent for culture but I do not feel this is related to a UTI and therefore there is no need for antibiotics. Patient was given clonidine and hydralazine and the blood pressure improved. At this time she does not have any focal neurologic event to suggest stroke or hypertensive encephalopathy with troponin being 5 and this is less than her recent work-up 6 days ago and the fact she has had a heart cath which showed no severe stenosis or blockage there is no need for further inpatient work-up. Patient be discharged at this time and can follow-up on an outpatient basis regarding her symptoms History & Record Review Discussion w/independent historian: EMS personnel and Patient Lab Data Attestation: I reviewed the patient's lab results. Labs: Laboratory Results - last 24 hr 01/04/23 01/04/23 01/04/23 22:40 22:40 23:46 WBC 11.2 H RBC 4.05 L Hgb 12.2 Hct 37.3 MCV 92.1 MCH 30.1 MCHC 32.7 RDW Std Deviation 40.6 RDW Coeff of [place] 12.1 Plt Count 277 MPV 11.3 Immature Gran % (Auto) 1.400 H Neut % (Auto) 69.5 Lymph % (Auto) 20.7 [place] % (Auto) 5.6 Eos % (Auto) 2.1 Baso % (Auto) 0.7 Absolute Neuts (auto) 7.8 H Absolute Lymphs (auto) 2.31 Nucleated RBC % 0 Sodium 130 L Potassium 3.5 Chloride 92 L Carbon Dioxide 30.0 Anion Gap 8 BUN 15 Creatinine 1.06 H Estim Creat Clear Calc 38.50 Est GFR (MDRD) Af Amer 66 Est GFR (MDRD) Non-Af 54 L BUN/Creatinine Ratio 14.2 Glucose 213 H Calcium 9.6 Magnesium 2.1 Troponin I High Sens 5 Urine Color Yellow Urine Clarity Clear Urine pH 6.5 Ur Specific [place] 1.005 Urine Protein Negative Urine Glucose (UA) Normal Urine Ketones Negative Urine Occult Blood Negative Urine Nitrite Negative Urine Bilirubin Negative Urine Urobilinogen Normal Ur Leukocyte Esterase Negative Urine RBC 0 SEEN Urine WBC 0-5 SEEN Ur Squamous Epith Cells 0-5 SEEN Urine Bacteria 2+ Urine Mucus 0 SEEN Discharge Plan Triage Chief Complaint: Chest Pain ED Provider: Marko Smith Dx/Rx/DC Orders Clinical Impression: Nonspecific chest pain, Accelerated hypertension, Type 2 diabetes mellitus Instructions: Controlling High Blood Pressure, ED Chest Pain, Uncertain Cause Prescriptions: No Action (DME) Handicap Placard See Rx Instructions .ROUTE .MEDSUPPLY Qty: 1 0RF Rx Instructions: As directed, length of time 3 years lidocaine 5 % adhesive patch,medicated 2 patch topical DAILY Qty: 30 3RF Rx Instructions: leave on most painful area for up to 12 hrs tizanidine 2 mg tablet 2 mg PO HS PRN (Reason: muscle spasticity) Qty: 30 0RF budesonide 1 mg/2 mL suspension for nebulization 1 mg inhalation BID Qty: 60 6RF citalopram 40 mg tablet 40 mg PO QHS Qty: 90 3RF (DME) cane Device See Rx Instructions .Route Qty: 1 0RF Rx Instructions: As directed acetaminophen 500 MG tablet 500 mg PO QHS Rx Instructions: over the counter. no prescription required. insulin lispro [Humalog KwikPen Insulin] 100 unit/mL insulin pen 35 unit SC TID 90 Days Qty: 45.9 3RF Rx Instructions: Hold if glucose less than 130 mg/dl insulin glargine [Basaglar KwikPen U-100 Insulin] 100 unit/mL (3 mL) insulin pen 40 unit subcut DAILY Qty: 32.4 1RF Rx Instructions: daily at bedtime atorvastatin 80 mg tablet 80 mg PO QHS Qty: 90 3RF clopidogrel 75 mg tablet 75 mg PO DAILY Qty: 90 3RF isosorbide mononitrate 60 mg tablet extended release 24 hr 60 mg PO DAILY Qty: 90 3RF pantoprazole 40 mg tablet,delayed release (DR/EC) 40 mg PO DAILY Qty: 90 1RF losartan 25 mg tablet 25 mg PO DAILY Qty: 30 2RF nitroglycerin 0.4 mg tablet, sublingual 0.4 mg SUBLINGUAL Q5-15M PRN (Reason: Pain) Qty: 30 0RF furosemide [Lasix] 20 mg tablet 20 mg PO DAILY Qty: 30 2RF metoprolol tartrate 25 mg tablet 12.5 mg PO BID Qty: 90 2RF Rx Instructions: (DME) FreeStyle Emily 2 [place]nut Mis See Rx Instructions .ROUTE .MEDSUPPLY Qty: 1 0RF Rx Instructions: As directed bisacodyl [Dulcolax (bisacodyl)] 5 mg tablet,delayed release (DR/EC) 5 mg PO QHS PRN (Reason: constipation) 30 Days Qty: 30 3RF (DME) pen needle, diabetic 32 gauge x 5/32 needle See Rx Instructions .ROUTE .MEDSUPPLY Qty: 50 0RF Rx Instructions: 4x/day (DME) FreeStyle Emily 2 Sensor Kit See Rx Instructions .ROUTE .MEDSUPPLY Qty: 2 3RF Rx Instructions: As directed (DME) blood-glucose meter [True Metrix Glucose Meter] [facility] See Rx Instructions .Route Qty: 1 0RF Rx Instructions: As directed (DME) True Metrix Glucose Test Strip Strip See Rx Instructions .Route Qty: 100 7RF Rx Instructions: tid budesonide-formoterol [Symbicort] 160-4.5 mcg/actuation HFA aerosol inhaler 2 puff inhalation BID Qty: 10.2 0RF albuterol sulfate 90 mcg/actuation HFA aerosol inhaler 2 puff INHALATION Q6H PRN (Reason: shortness of breath or wheezing) Qty: 18 3RF ipratropium-albuterol 0.5 mg-3 mg(2.5 mg base)/3 mL solution for nebulization 3 ml INHALATION Q4H PRN PRN (Reason: SOB &/OR WHEEZING) Qty: 180 6RF alprazolam 0.25 mg tablet 0.25 mg PO QHS Qty: 30 0RF risperidone 1 mg tablet 1 mg PO QHS Qty: 90 1RF Primary Care Provider: Billy Madera Referrals: Billy Madera MD [Primary Care Provider] - Activity Restrictions/Additional Instructions: Your work-up today showed no signs of heart damage therefore continue the medication as prescribed by your natural resources faculty member and return to the ER should you have any further concerns Disposition Disposition: Home, Self Care
[2023-01-04 23:41] LABS: Anion Gap 8 (5-15); BUN 15 mg/dL (7-18); BUN/Creat Ratio 14.2 RATIO (10-20); Calcium,Total 9.6 mg/dL (8.5-10.1); Chloride 92 mmol/L (98-107); Creatinine, Serum 1.06 mg/dL (0.55-1.02); EST Glomerular Filtration Rate 54 mL/min (>60); Est Glom Filt Rate - Afr Amer 66 mL/min (>60); Glucose 213 mg/dL (74-106); Magnesium 2.1 mg/dL (1.6-2.6); Potassium 3.5 mmol/L (3.5-5.1); Sodium Level 130 mmol/L (136-145); Troponin-I HS 5 pg/mL (3.0-54.0)
[2023-01-04 23:47] VITALS: BP 111/93; PULSE 87; RESP 26; O2SAT 100
[2023-01-04 23:52] LABS: Mucous, Urine 0 SEEN /hpf (<or=2+); Red Blood Cells-Urine 0 SEEN /hpf (0-5)
[2023-01-05 00:05] LABS: Color, Urine Yellow (Yellow); Glucose, Dipstick Normal (Normal); Ketone-Dipstick Negative (Negative); Leukocyte Esterase-Dipstick Negative /ul (Negative); Nitrite-Dipstick Negative (Negative); Occult Blood-Urine Negative /ul (Negative); Protein-Dipstick Negative (Negative); Specific Gravity, Urine 1.005 (1.002-1.030); Urine Bilirubin Dipstick Negative (Negative); Urine Clarity Clear (Clear); Urine Urobilinogen Normal (Normal); Urine pH 6.5 (5.0 - 8.0)
[2023-01-05 00:23] LABS: Bacteria 2+ /hpf (None Seen); Squamous Epithelial Cells - UA 0-5 SEEN /hpf (5-10); White Blood Cells 0-5 SEEN /hpf (0-5)
[2023-01-05 00:44] VITALS: BP 165/67; O2SAT 100
== END 2023-01-05 01:40 | disposition home or self-care (01) ==
PROVIDERS: Emergency Provider Emergency Medicine; PCP Internal Medicine; Referring Provider Emergency Medicine; Visit Provider Emergency Medicine
DX: R07.9 Chest pain, unspecified (principal); J44.9 Chronic obstructive pulmonary disease, unspecified; I11.0 Hypertensive heart disease with heart failure; I50.30 Unspecified diastolic (congestive) heart failure; E11.9 Type 2 diabetes mellitus without complications; Z79.4 Long term (current) use of insulin; R51.9 Headache, unspecified; I25.10 Atherosclerotic heart disease of native coronary artery without angina pectoris; E78.5 Hyperlipidemia, unspecified; Z87.891 Personal history of nicotine dependence; Z95.5 Presence of coronary angioplasty implant and graft; E66.9 Obesity, unspecified; Z79.899 Other long term (current) drug therapy; R42 Dizziness and giddiness
CPT/HCPCS: 80048; 81001; 83735; 84484; 85025; 87086; 87088; 93005; 96374; 99284; A4216

== ENCOUNTER 2023-01-26 19:37 | Inpatient (IN) | payer MEDICARE, SELFPAY ==
[2021-11-03 12:08] VITALS: BMI 34.9
[2023-01-26 19:38] VITALS: BP 160/88; PULSE 71; RESP 22; TEMP 36.6; O2SAT 100; BMI 41.7
--- NOTE | 2023-01-26 19:48 | EDS_ITS ---
HPI History of Present Illness Chief Complaint: Shortness of Breath Informant: patient Onset/Context/Timing Onset: Days Context: Gradual Onset Narrative Narrative: Patient presents secondary to pneumonia. [facility] with a 4 to 5-day history of cough and congestion. She was diagnosed with a pneumonia and discharged on cefdinir and azithromycin. Patient states she took her last dose of azithromycin today. She states she was not able to take the cefdinir because it made her too nauseated. She reports no significant improvement in her breathing and today actually felt more short of breath. She does have a history of COPD and asthma along with CHF. She does report that she has been using her breathing treatments more frequently than normal. She has not noted a fever. She is coughing up yellow-colored sputum. [facility] Medical History Anemia Anxiety and depression Asthma with COPD Atherosclerotic heart disease of [place] coronary artery without angina pectoris Back pain Chest pain Chronic back pain Chronic respiratory failure COPD (chronic obstructive pulmonary disease) Diastolic CHF Former smoker Hepatitis HLD (hyperlipidemia) Hypertension Morbid obesity MARK treated with BiPAP Psoriasis Smoking greater than 40 pack years Thyroid nodule Type 2 diabetes mellitus Home Medications Handicap Placard #1 ea 12/12/20 [Rx Last Taken Unknown] flash glucose scanning reader (Domainex Emily 2 [place]) #1 ea 01/31/21 [Rx Last Taken Unknown] acetaminophen 500 mg tablet 500 mg PO QHS 10/21/21 [History Last Taken Unknown] bisacodyl 5 mg tablet,delayed release (Dulcolax (bisacodyl)) 5 mg PO QHS PRN constipation 30 days #30 tabs 11/13/21 [Rx Last Taken Unknown] pen needle, diabetic 32 gauge x #50 ea 02/11/22 [Rx Last Taken Unknown] tizanidine 2 mg tablet 2 mg PO HS PRN muscle spasticity #30 tabs 04/24/22 [Rx Last Taken Unknown] lidocaine 5 % topical patch 2 patch topical DAILY #30 ea 06/03/22 [Rx Last Taken Unknown] blood sugar diagnostic (True Metrix Glucose Test Strip) #100 ea 09/11/22 [Rx Last Taken Unknown] blood-glucose meter (True Metrix Glucose Meter) #1 ea 09/11/22 [Rx Last Taken Unknown] budesonide-formoterol HFA 160 mcg-4.5 mcg/actuation aerosol inhaler (Symbicort) 2 puff inhalation BID Breo too expensive for patient, not covered #10.2 grams 10/15/22 [Rx Last Taken Unknown] budesonide 1 mg/2 mL suspension for nebulization 1 mg (2 mL) inhalation BID #60 mL 11/02/22 [Rx Last Taken Unknown] albuterol sulfate 90 mcg/actuation aerosol inhaler 2 puff inhalation Q6H PRN shortness of breath or wheezing #18 grams 11/06/22 [Rx Last Taken Unknown] ipratropium 0.5 mg-albuterol 3 mg (2.5 mg base)/3 mL nebulization soln 3 ml inhalation Q4H PRN PRN SOB &/OR WHEEZING #180 mL 11/10/22 [Rx Last Taken Unknown] cane #1 ea 11/16/22 [Rx Last Taken Unknown] citalopram 40 mg tablet 40 mg PO QHS depression #90 tabs 11/16/22 [Rx Last Taken Unknown] risperidone 1 mg tablet 1 mg PO QHS anxiety #90 tabs 12/07/22 [Rx Last Taken Unknown] atorvastatin 80 mg tablet 80 mg PO QHS #90 tabs 12/26/22 [Rx Last Taken Unknown] clopidogrel 75 mg tablet 75 mg PO DAILY #90 tabs 12/26/22 [Rx Last Taken Unknown] furosemide 20 mg tablet (Lasix) 20 mg PO DAILY #30 tabs 12/26/22 [Rx Last Taken Unknown] insulin glargine 100 unit/mL (3 mL) subcutaneous pen (Basaglar KwikPen U-100 Insulin) 40 unit (0.4 mL) subcut DAILY diabetic managment #32.4 mL 12/26/22 [Rx Last Taken Unknown] insulin lispro 100 unit/mL subcutaneous pen (Humalog KwikPen (U-100) Insulin) 35 unit (0.35 mL) subcut TID diabetes 3 months #45.9 mL 12/26/22 [Rx Last Taken Unknown] isosorbide mononitrate 60 mg tablet,extended release 24 hr 60 mg PO DAILY BP #90 tabs 12/26/22 [Rx Last Taken Unknown] losartan 25 mg tablet 25 mg PO DAILY #30 tabs 05/20/23 [Rx Last Taken Unknown] metoprolol tartrate 25 mg tablet 12.5 mg PO BID #90 tabs 12/26/22 [Rx Last Taken Unknown] nitroglycerin 0.4 mg sublingual tablet 0.4 mg sublingual Q5-15M PRN Pain #30 tabs 12/26/22 [Rx Last Taken Unknown] pantoprazole 40 mg tablet,delayed release 40 mg PO DAILY #90 tabs 12/26/22 [Rx Last Taken Unknown] flash glucose sensor (FreeStyle Emily 2 Sensor kit) #2 ea 01/06/23 [Rx Last Taken Unknown] alprazolam 0.25 mg tablet 0.25 mg PO QHS #30 tabs 01/07/23 [Rx Last Taken Unknown] azithromycin 250 mg tablet See Rx Instructions PO .COMPLEX #6 tabs 01/22/23 [Rx Last Taken Unknown] cefdinir 300 mg capsule 300 mg PO BID 10 days #20 caps 01/22/23 [Rx Last Taken Unknown] Allergy/AdvReac Type Severity Reaction Status Date / Time amoxicillin [Amoxicillin] Allergy Intermediate Rash Verified 01/26/23 19:46 hydrocodone Allergy Intermediate SWELLING Verified 01/26/23 19:46 gabapentin [From Neurontin] Allergy Shortness Verified 01/26/23 19:46 of breath levofloxacin [From Levaquin] Allergy Hives Verified 01/26/23 19:46 pseudoephedrine HCl Allergy Shortness Verified 01/26/23 19:46 [From Sudafed] of breath red dye Allergy Hives Verified 01/26/23 19:46 prednisone AdvReac Severe mean mood Verified 01/26/23 19:46 codeine AdvReac HEADACHE Verified 01/26/23 19:46 Family History Brother Heart disease Mother Colon cancer Heart disease Surgical History History of cholecystectomy History of left heart catheterization (LHC) (~09/23/20) Stented coronary artery (12/28/18) Social History Smoking Status: Former smoker pack-years: 40 how long ago did patient quit smokin year ago alcohol intake: never substance use type: does not use caffeine: Yes Type: carbonated beverages and tea what type of physical activity do you participate in: none ROS ROS ED Constitutional Constitutional ED: Denies chills or fever(s) Eyes Eyes: Denies change in vision or discharge from eye(s) ENT ENT ED: Denies discharge from eye(s), rhinorrhea or sore throat Cardiovascular Cardiovascular: Denies chest pain or palpitations Respiratory/Chest Respiratory/Chest: Reports cough and dyspnea Gastrointestinal Gastrointestinal: Denies abdominal pain, diarrhea, nausea or vomiting Genitourinary Genitourinary ED: Denies dysuria Musculoskeletal Musculoskeletal: Denies back pain or extremity pain Integumentary Denies Abrasions or rash Neurologic Neurologic: Reports weakness; Denies headache(s) Psychiatric Psychiatric: Denies anxiety or depression Allergic/Immunologic Allergic/Immunologic ED: Denies lip swelling or urticaria EXAM Physical Exam Const Vital Signs: 01/26/23 19:38 01/26/23 20:08 Temperature 97.9 F Temperature Source Temporal Pulse Rate 71 Respiratory Rate 22 H Respiratory Effort Short of Breath Respiratory Depth Normal Respiratory Pattern Tachypnea Blood Pressure 160/88 H Blood Pressure Mean 112 Pulse Ox 100 Oxygen Delivery Method Nasal Cannula Nasal Cannula Oxygen Flow Rate (L/min) 4 4 Positive well nourished and well developed General Appearance ED: well developed HEENT Reports normocephalic and head/scalp atraumatic Eyes PERRL and EOMs intact bilaterally Neck supple Chest Wall inspection of chest normal and palpation of chest normal Resp Resp Narrative: Diminished breath sounds bilateral bases. Mild tachypnea. Cardio regular rate and regular rhythm GI non-tender Auscultation: hypoactive bowel sounds Palpation: soft Extremity normal to inspection Neuro oriented x3 Neuro Narrative: No focal neurologic deficit. 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 EKG obtained to evaluate for cardiac arrhythmia/ischemia. Chest x-ray obtained to evaluate for acute lung pathology, cardiac size, or mediastinal abnormality. Labwork obtained to evaluate for leukocytosis, anemia, and electrolyte derangement. Blood cultures obtained. Patient given a DuoNeb treatment. Lab Data Attestation: I reviewed the patient's lab results. Labs: Laboratory Results - last 24 hr 06/20/23 06/20/23 06/20/23 19:50 19:50 19:50 WBC 10.7 RBC 4.02 L Hgb 11.8 L Hct 36.2 L MCV 90.0 MCH 29.4 MCHC 32.6 RDW Std Deviation 39.8 RDW Coeff of Malcom 12.2 Plt Count 284 MPV 10.7 Immature Gran % (Auto) 0.700 Neut % (Auto) 74.8 H Lymph % (Auto) 16.3 L Davidson % (Auto) 5.8 Eos % (Auto) 1.4 Baso % (Auto) 1.0 Absolute Neuts (auto) 8.0 H Absolute Lymphs (auto) 1.75 Nucleated RBC % 0 Sodium 130 L Potassium 3.7 Chloride 94 L Carbon Dioxide 28.0 Anion Gap 8 BUN 10 Creatinine 0.90 Estim Creat Clear Calc 45.35 Est GFR (MDRD) Af Amer 79 Est GFR (MDRD) Non-Af 65 BUN/Creatinine Ratio 11.1 Glucose 261 H Calcium 9.2 Troponin I High Sens 7 B-Natriuretic Peptide 25.7 Radiography Chest X-Ray - ED: 1 View, Read by ED Physician and Left Infiltrate Diagnostic Testing: Clinical Impression(s) from Imaging Studies Chest X-Ray 01/26/23 20:25 IMPRESSION: There is a left pleural effusion vs prominent pleural fat. Left lower lobe infiltrate. Electronically Signed: Andrew Wheeler MD at 20:49 EDT Reading Location ID and State: [facility] / [place] , Service support , EKG Initial EKG: Attestation: I personally reviewed and interpreted this EKG as follows: Interpretation: Sinus Rhythm (Sinus at 69 bpm with no acute ischemia.) Treatment and Re-Evaluation :: CBC was normal white count with 75% neutrophils. Hemoglobin is 11.8 and appears stable when compared to prior values. Sodium is 130 which again is consistent with her most recent labs. Renal function is normal. Troponin is normal at 7 and BNP is normal at 25. Glucose is slightly elevated at 261. Portable chest x-ray per my interpretation does reveal loss of cardiac silhouette along the left most border concerning for infiltrate. Radiology interpretation is reviewed and they do feel patient has a left pleural effusion versus prominent pleural fat as well as a left lower lobe infiltrate. Patient just completed a course of azithromycin today without improvement. Given her history of COPD and asthma with oxygen dependency and feeling outpatient treatment I will discuss case with hospitalist for admission. I will treat her with Rocephin which she has tolerated well in the past. Given she already had a dose of azithromycin today I would not repeat this at this time. She will be given a dose of IV Solu-Medrol which she has tolerated well in the past. Discharge Plan Dx/Rx/DC Orders Clinical Impression: Pneumonia Disposition Disposition: Acute Care Hospital [facility]
[2023-01-26 19:55] LABS: Absolute Lymphocyte Count 1.75 X10^3/uL (0.83-4.51); Basophil# 0.11 X10^3/uL; Eosinophil# 0.15 X10^3/uL; Eosinophils% 1.4 % (0-5); Hematocrit 36.2 % (37-47); Hemoglobin 11.8 g/dL (12.0-15.0); Lymphocyte # 1.75 X10^3/ul (0.83-4.51); Lymphocyte % 16.3 % (19-41); Mean Corp Hgb Conc 32.6 g/dL (32-36); Mean Corpuscular Hgb 29.4 pg (27.0-32.0); Mean Platelet Vol. 10.7 fl (6.2-12.0); Monocyte# 0.62 X10^3/uL; Monocyte% 5.8 % (0-10); NRBC Flagged by Analyzer 0 % (0-5); Neutrophil # 8.03 X10^3/uL (2.7-7.7); Neutrophil % 74.8 % (47-70); Platelet Count 284 K/mm3 (150-450); RBC Distribution Width CV 12.2 % (11.6-14.6); RBC Distribution Width SD 39.8 fl (35.1-43.9); Red Blood Count 4.02 M/mm3 (4.2-5.4); White Blood Count 10.7 K/mm3 (4.4-11.0)
[2023-01-26 20:08] VITALS: O2SAT 99
[2023-01-26 20:15] LABS: BNP,B-Type NATRIURETIC PEPTIDE 25.7 pg/mL (0-100)
[2023-01-26 20:18] LABS: Anion Gap 8 (5-15); BUN 10 mg/dL (7-18); BUN/Creat Ratio 11.1 RATIO (10-20); Calcium,Total 9.2 mg/dL (8.5-10.1); Chloride 94 mmol/L (98-107); EST Glomerular Filtration Rate 65 mL/min (>60); Est Glom Filt Rate - Afr Amer 79 mL/min (>60); Estimated Creatinine Clearance 45.35 ml/min; Glucose 261 mg/dL (74-106); Potassium 3.7 mmol/L (3.5-5.1); Sodium Level 130 mmol/L (136-145); Troponin-I HS 7 pg/mL (3.0-54.0)
--- NOTE | 2023-01-26 20:25 | RAD_ITS ---
STUDY: XR Chest 1 View 01/26/2023 8:22 PM REASON FOR EXAM: Female, 72 years old. CHEST PAIN sob COMPARISON: 01.22.23 TECHNIQUE: XR Chest 1 View FINDINGS: There is a left pleural effusion vs prominent pleural fat. Left lower lobe infiltrate. There are multiple overlying cardiac monitoring leads. Normal heart size. Normal mediastinum. Normal wallace. Prominent appearing increased interstitial lung markings. Normal visualized pulmonary arteries. There is atherosclerotic calcification of the aortic arch with tortuosity. There are diffuse degenerative changes of the visualized thoracic spine. There is degenerative osteoarthritis of the bilateral shoulders. There is no demonstrated abnormality of the visualized soft tissue structures of the upper abdomen. RAD/Chest 1 View (Portable) IMPRESSION: There is a left pleural effusion vs prominent pleural fat. Left lower lobe infiltrate. Electronically Signed: Andrew Wheeler MD at 20:49 EDT ,
[2023-01-26 21:00] VITALS: PULSE 67; RESP 30; O2SAT 99
[2023-01-26] MEDS: Ipratropium/Albuterol Sulfate 3 ML AMPUL.NEB INHALATION (21:00)
[2023-01-26] MEDS: MethylPREDNISolone 125 MG/2 ML Vial IV (21:24)
[2023-01-26] MEDS: Ceftriaxone 1 GM/50 ML BAG IV (21:24)
--- NOTE | 2023-01-26 21:24 | PCM.HP.STD ---
[facility] - General General Date of Admission: 01/26/23 Date of Service: 01/26/23 Chief Complaint: sob [facility] Narrative TIM CEDILLO, is a 72 F with a significant history of COPD, asthma, hypertension, and diabetes mellitus who presents to the emergency department with 1 week history of worsening shortness of breath. Of note on 01/22/2023 [facility] and was diagnosed with pneumonia and was prescribed azithromycin and cefdinir. Patient completed the last dose of azithromycin on the same day of this current presentation. In regards to the prescribed cefdinir see took only 2 doses; and because it made her very nauseous she stopped taking it. She reports a productive cough of yellow sputum which is thicker than her baseline. She denies wheezing. She has been using inhalers at home multiple times without any relief. During the course of her illness her symptoms actually got transiently better. However on the day of presentation because she got worse she called the paramedics and was brought to the emergency department. She denies fever or chills. She reports anorexia. Although at the emergency department she reported being very hungry. [facility] Medical History Anemia Anxiety and depression Asthma with COPD Atherosclerotic heart disease of [place] coronary artery without angina pectoris Back pain Chest pain Chronic back pain Chronic respiratory failure COPD (chronic obstructive pulmonary disease) Diastolic CHF Former smoker Hepatitis HLD (hyperlipidemia) Hypertension Morbid obesity MARK treated with BiPAP Psoriasis Smoking greater than 40 pack years Thyroid nodule Type 2 diabetes mellitus Home Medications Handicap Placard #1 ea 12/12/20 [Rx Last Taken Unknown] flash glucose scanning reader (V[employer]chercloud Emily 2 [place]) #1 ea 01/31/21 [Rx Last Taken Unknown] acetaminophen 500 mg tablet 500 mg PO QHS 10/21/21 [History Last Taken Unknown] bisacodyl 5 mg tablet,delayed release (Dulcolax (bisacodyl)) 5 mg PO QHS PRN constipation 30 days #30 tabs 11/13/21 [Rx Last Taken Unknown] pen needle, diabetic 32 gauge x #50 ea 02/11/22 [Rx Last Taken Unknown] blood sugar diagnostic (True Metrix Glucose Test Strip) #100 ea 09/11/22 [Rx Last Taken Unknown] blood-glucose meter (True Metrix Glucose Meter) #1 ea 09/11/22 [Rx Last Taken Unknown] budesonide-formoterol HFA 160 mcg-4.5 mcg/actuation aerosol inhaler (Symbicort) 2 puff inhalation BID Breo too expensive for patient, not covered #10.2 grams 10/15/22 [Rx Last Taken Unknown] albuterol sulfate 90 mcg/actuation aerosol inhaler 2 puff inhalation Q6H PRN shortness of breath or wheezing #18 grams 11/06/22 [Rx Last Taken Unknown] ipratropium 0.5 mg-albuterol 3 mg (2.5 mg base)/3 mL nebulization soln 3 ml inhalation Q4H PRN PRN SOB &/OR WHEEZING #180 mL 11/10/22 [Rx Last Taken Unknown] cane #1 ea 11/16/22 [Rx Last Taken Unknown] citalopram 40 mg tablet 40 mg PO QHS depression #90 tabs 11/16/22 [Rx Last Taken Unknown] risperidone 1 mg tablet 1 mg PO QHS anxiety #90 tabs 12/07/22 [Rx Last Taken Unknown] insulin glargine 100 unit/mL (3 mL) subcutaneous pen (Basaglar KwikPen U-100 Insulin) 40 unit (0.4 mL) subcut DAILY diabetic managment #32.4 mL 12/26/22 [Rx Last Taken Unknown] isosorbide mononitrate 60 mg tablet,extended release 24 hr 60 mg PO DAILY BP #90 tabs 12/26/22 [Rx Last Taken Unknown] nitroglycerin 0.4 mg sublingual tablet 0.4 mg sublingual Q5-15M PRN Pain #30 tabs 12/26/22 [Rx Last Taken Unknown] flash glucose sensor (FreeStyle Emily 2 Sensor kit) #2 ea 01/06/23 [Rx Last Taken Unknown] alprazolam 0.25 mg tablet 0.25 mg PO QHS anxiety 01/26/23 [History Last Taken Unknown] atorvastatin 80 mg tablet 80 mg PO QHS cholesterol 01/26/23 [History Last Taken Unknown] clopidogrel 75 mg tablet 75 mg PO DAILY blood thinner 01/26/23 [History Last Taken Unknown] furosemide 20 mg tablet (Lasix) 20 mg PO DAILY diuretic 01/26/23 [History Last Taken Unknown] insulin lispro 100 unit/mL subcutaneous pen (Humalog KwikPen (U-100) Insulin) 20 unit subcut TID diabetes 01/26/23 [History Last Taken Unknown] losartan 25 mg tablet 25 mg PO DAILY blood pressure 01/26/23 [History Last Taken Unknown] metoprolol tartrate 25 mg tablet 12.5 mg PO BID blood pressure 01/26/23 [History Last Taken Unknown] pantoprazole 40 mg tablet,delayed release 40 mg PO DAILY stomach 01/26/23 [History Last Taken Unknown] Allergy/AdvReac Type Severity Reaction Status Date / Time amoxicillin [Amoxicillin] Allergy Intermediate Rash Verified 01/26/23 19:46 hydrocodone Allergy Intermediate SWELLING Verified 01/26/23 19:46 gabapentin [From Neurontin] Allergy Shortness Verified 01/26/23 19:46 of breath levofloxacin [From Levaquin] Allergy Hives Verified 01/26/23 19:46 pseudoephedrine HCl Allergy Shortness Verified 01/26/23 19:46 [From Sudafed] of breath red dye Allergy Hives Verified 01/26/23 19:46 prednisone AdvReac Severe mean mood Verified 01/26/23 19:46 codeine AdvReac HEADACHE Verified 01/26/23 19:46 Family History Brother Heart disease Mother Colon cancer Heart disease Surgical History History of cholecystectomy History of left heart catheterization (LHC) (~09/23/20) Stented coronary artery (12/28/18) Social History Smoking Status: Former smoker pack-years: 40 how long ago did patient quit smokin year ago alcohol intake: never substance use type: does not use caffeine: Yes Type: carbonated beverages and tea what type of physical activity do you participate in: none ROS ROS Narrative Pertinent positives and pertinent negatives as noted in HPI. All other systems were reviewed and are negative Vital Signs Vital Signs Vital Signs: 01/26/23 19:38 01/26/23 20:08 01/26/23 21:00 Temperature 97.9 F Temperature Source Temporal Pulse Rate 71 67 Respiratory Rate 22 H 30 H Respiratory Effort Short of Breath Respiratory Depth Normal Respiratory Pattern Tachypnea Tachypnea Blood Pressure 160/88 H Blood Pressure Mean 112 Pulse Ox 100 Oxygen Delivery Method Nasal Cannula Nasal Cannula Oxygen Flow Rate (L/min) 4 4 01/26/23 21:00 Temperature Temperature Source Pulse Rate Respiratory Rate Respiratory Effort Respiratory Depth Respiratory Pattern Blood Pressure Blood Pressure Mean Pulse Ox 99 Oxygen Delivery Method Nasal Cannula Oxygen Flow Rate (L/min) 4 Weight Weight: 103.5 kg Body Mass Index (BMI) 41.7 Physical Exam Narrative Physical exam: General: Well-nourished, well-developed. Head: Normocephalic, atraumatic, no tenderness Eyes: Vision is grossly intact. EOMI ENT, no trauma, moist mucous membranes, no rhinorrhea Neck: Nontender, No thyromegaly. CVS: Regular rate and rhythm. S1-S2 present. No murmur, gallop or rub. Respiratory : Tachypnea, diminished. Abdomen: Soft, nontender, nondistended, normal bowel sounds, no masses : Deferred Back: Nontender, no CVA tenderness. Extremities: Nontender full range of motion, no trauma Skin: Normal color, no trauma, abrasions Neuro: Alert, oriented, cranial nerves II through XII grossly intact. Psychiatry: Anxious. Results Lab / Micro Data Result Diagrams: 01/26/23 19:50 01/26/23 19:50 Labs: Laboratory Results - last 24 hr 01/26/23 19:50: WBC 10.7, RBC 4.02 L, Hgb 11.8 L, Hct 36.2 L, MCV 90.0, MCH 29.4, MCHC 32.6, RDW Std Deviation 39.8, RDW Coeff of Malcom 12.2, Plt Count 284, MPV 10.7, Immature Gran % (Auto) 0.700, Neut % (Auto) 74.8 H, Lymph % (Auto) 16.3 L, [place] % (Auto) 5.8, Eos % (Auto) 1.4, Baso % (Auto) 1.0, Absolute Neuts (auto) 8.0 H, Absolute Lymphs (auto) 1.75, Nucleated RBC % 0 01/26/23 19:50: Sodium 130 L, Potassium 3.7, Chloride 94 L, Carbon Dioxide 28.0, Anion Gap 8, BUN 10, Creatinine 0.90, Estim Creat Clear Calc 45.35, Est GFR (MDRD) Af Amer 79, Est GFR (MDRD) Non-Af 65, BUN/Creatinine Ratio 11.1, Glucose 261 H, Calcium 9.2, Troponin I High Sens 7 01/26/23 19:50: B-Natriuretic Peptide 25.7 Radiology Impression Chest X-Ray 01/26/23 20:25 IMPRESSION: There is a left pleural effusion vs prominent pleural fat. Left lower lobe infiltrate. Electronically Signed: Andrew Wheeler MD at 20:49 EDT , Assessment & Plan Assessment/Plan (1) Pneumonia: (2) Obesity: PLAN: Plan Pneumonia with Possible COPD/asthma exacerbation Blood culture ?2 is pending; ordered for the ED; follow. Impression of chest x-ray by radiology:There is a left pleural effusion vs prominent pleural fat. Left lower lobe infiltrate. Chest x-ray was independently interpreted. There is opacity at the left lower base. Review of records show that patient has had this left lower opacities for a long time. Recently completed azithromycin therapy. Started on ceftriaxone at the emergency department and continued. ED at the left lower base Respiratory Gram stain and culture pending DuoNeb scheduled. Albuterol as needed Legionella antigen screen and Strep antigen ordered Allergic to prednisone but no Solu-Medrol. Solu-Medrol IV ordered. Of note patient received Solu-Medrol 125 mg in the emergency department. On baseline home oxygen patient's saturation was 100%. Oxygen supplementation continued. Declined cough medicine. White count of 10,700. No left shift. Monitor BMP and CBC Hypertension Blood pressure is not within goal Home blood pressure medication continued. As needed hydralazine ordered. Trend blood pressure and adjust blood pressure medications. Diabetes mellitus Patient with hyperglycemia on presentation Home prandial insulin de-escalated. Monitor Accu-Cheks Correction scale insulin ordered. Anxiety disorder Persistent As needed Xanax continued Morbid Obesity: BMI:40.4 kg/m?. Complicates care. Lifestyle modification recommended. DVT prophylaxis Subcutaneous Lovenox ordered. Charges/Coding Visit Charges Inpatient E&M: 36650 Init Hosp L3
[2023-01-26 22:00] VITALS: BP 155/95; PULSE 70; RESP 16; TEMP 36.6; O2SAT 99
[2023-01-26 22:04] VITALS: BMI 40.4
[2023-01-26 22:12] VITALS: BP 155/68; PULSE 69; RESP 28; TEMP 36.8; O2SAT 98
[2023-01-26] MEDS: Insulin Lispro 100 UNIT/ML INSULN.PEN SC (22:27)
[2023-01-26 22:48] LABS: Bedside Glucose 237 mg/dL (74-106)
[2023-01-26] MEDS: ALPRAZolam 0.25 MG Tablet PO (23:43)
[2023-01-26] MEDS: Atorvastatin Calcium 80 MG Tablet PO (23:43)
[2023-01-26 23:56] VITALS: BP 131/65; PULSE 77; RESP 22; TEMP 36.8; O2SAT 98
[2023-01-27] VITALS (13 sets, daily range): BP systolic 136–153; BP diastolic 49–86; PULSE 69–97; RESP 12–34; TEMP 36.5–36.8; O2SAT 98–100
[2023-01-27 06:37] LABS: Absolute Lymphocyte Count 0.84 X10^3/uL (0.83-4.51); Absolute Neutrophil Count 12.7 X10^3/uL (2.0-7.7); Basophil# 0.06 X10^3/uL; Basophil% 0.4 % (0-1); Hematocrit 39.9 % (37-47); Lymphocyte # 0.84 X10^3/ul (0.83-4.51); Lymphocyte % 6.1 % (19-41); Mean Corp Hgb Conc 32.6 g/dL (32-36); Mean Corpuscular Hgb 29.4 pg (27.0-32.0); Mean Corpuscular Volume 90.3 fL (81-99); Mean Platelet Vol. 10.6 fl (6.2-12.0); Monocyte# 0.11 X10^3/uL; Monocyte% 0.8 % (0-10); NRBC Flagged by Analyzer 0 % (0-5); Neutrophil # 12.72 X10^3/uL (2.7-7.7); Neutrophil % 91.8 % (47-70); Platelet Count 358 K/mm3 (150-450); RBC Distribution Width SD 39.4 fl (35.1-43.9); Red Blood Count 4.42 M/mm3 (4.2-5.4); White Blood Count 13.9 K/mm3 (4.4-11.0)
[2023-01-27 07:09] LABS: Anion Gap 7 (5-15); BUN 11 mg/dL (7-18); BUN/Creat Ratio 10.2 RATIO (10-20); Calcium,Total 9.5 mg/dL (8.5-10.1); Chloride 97 mmol/L (98-107); Creatinine, Serum 1.08 mg/dL (0.55-1.02); EST Glomerular Filtration Rate 53 mL/min (>60); Est Glom Filt Rate - Afr Amer 64 mL/min (>60); Estimated Creatinine Clearance 37.79 ml/min; Glucose 379 mg/dL (74-106); Potassium 4.3 mmol/L (3.5-5.1); Sodium Level 133 mmol/L (136-145)
[2023-01-27] MEDS: Ipratropium/Albuterol Sulfate 3 ML AMPUL.NEB INHALATION ×4 (07:14→19:02)
[2023-01-27] MEDS: Budesonide Respules 0.5 MG/2 ML AMPUL.NEB. INHALATION ×2 (07:14→19:02)
--- NOTE | 2023-01-27 07:30 | PCM.PN.HOSP ---
Reason for Visit Reason for Visit: Shortness of breath Subjective Subjective Mrs. Vargas is a 72-year-old female who has COPD and overlap syndrome on chronic oxygen at 5 L nasal cannula who presented to the emergency department at [facility] on 01/26/2023 with worsening shortness of breath. The patient [facility] last , 01/22/2023 and complained of cough and congestion. She was diagnosed with pneumonia and discharged on cefdinir and azithromycin. Patient indicated she completed the course of azithromycin on the day of presentation however she was not able to take the cefdinir because it made her too nauseated. She did not call for an alternative medication. She reported no significant improvement in her breathing and actually felt more short of breath and that her presentation. She was using her home nebulizers more frequently than normal. She not had a fever but did indicate she was coughing up yellow-colored sputum which is a change for her. She also reported decreased appetite but in the emergency department reported feeling very hungry. She denied any wheezing. She was admitted to the medical floor and treated for acute exacerbation of COPD along with antibiotics for pneumonia given her sputum change and her history of COPD. She is not requiring any oxygen above her baseline and current oxygen saturation is 99% on her 4 L nasal cannula. It is actually documented in her last pulmonary note from October of this year that she is on 5 L continuously. She had no white count on presentation however she did have a left shift with a 74.8% neutrophilia. Patient is currently complaining of a headache and some left ear pain. States her breathing is overall better. Seems to have some significant anxiety issues. On her baseline oxygen at 4 L with oxygen saturations anywhere from 98 to 99%. Discussed utilization of prednisone. Patient states she does not want to take oral prednisone and can only tolerate IV Solu-Medrol. We will transition back but I did discuss with her we would be unable to discharge her on steroids she voiced understanding. Objective Data Objective Data Vital Signs: Vital Signs Temp Pulse Resp BP Pulse Ox O2 Del Method O2 Flow Rate 98.0 F 84 22 H 138/49 H 99 Nasal Cannula 4 01/27/23 05:00 01/27/23 05:00 01/27/23 05:00 01/27/23 05:00 01/27/23 05:00 01/27/23 05:00 01/27/23 05:00 Oxygen Flow Rate (L/min) 4 Oxygen Delivery Method Nasal Cannula Weight: 100.3 kg Body Mass Index (BMI) 40.4 Intake & Output: Intake and Output for Last 24 Hours 01/25/23 01/26/23 01/27/23 23:59 23:59 23:59 Intake Total 50 / 50 Balance 50 / 50 Lab / Micro Data Result Diagrams: 01/27/23 06:25 01/27/23 06:25 Labs: Laboratory Results - last 24 hr 01/26/23 19:50: WBC 10.7, RBC 4.02 L, Hgb 11.8 L, Hct 36.2 L, MCV 90.0, MCH 29.4, MCHC 32.6, RDW Std Deviation 39.8, RDW Coeff of Malcom 12.2, Plt Count 284, MPV 10.7, Immature Gran % (Auto) 0.700, Neut % (Auto) 74.8 H, Lymph % (Auto) 16.3 L, Grayson % (Auto) 5.8, Eos % (Auto) 1.4, Baso % (Auto) 1.0, Absolute Neuts (auto) 8.0 H, Absolute Lymphs (auto) 1.75, Nucleated RBC % 0 01/26/23 19:50: Sodium 130 L, Potassium 3.7, Chloride 94 L, Carbon Dioxide 28.0, Anion Gap 8, BUN 10, Creatinine 0.90, Estim Creat Clear Calc 45.35, Est GFR (MDRD) Af Amer 79, Est GFR (MDRD) Non-Af 65, BUN/Creatinine Ratio 11.1, Glucose 261 H, Calcium 9.2, Troponin I High Sens 7 01/26/23 19:50: B-Natriuretic Peptide 25.7 01/26/23 22:26: POC Glucose 237 H 01/27/23 06:25: WBC 13.9 H, RBC 4.42, Hgb 13.0, Hct 39.9, MCV 90.3, MCH 29.4, MCHC 32.6, RDW Std Deviation 39.4, RDW Coeff of Malcom 12.0, Plt Count 358, MPV 10.6, Immature Gran % (Auto) 0.900, Neut % (Auto) 91.8 H, Lymph % (Auto) 6.1 L, Grayson % (Auto) 0.8, Eos % (Auto) 0.0, Baso % (Auto) 0.4, Absolute Neuts (auto) 12.7 H, Absolute Lymphs (auto) 0.84, Nucleated RBC % 0 01/27/23 06:25: Sodium 133 L, Potassium 4.3, Chloride 97 L, Carbon Dioxide 29.0, Anion Gap 7, BUN 11, Creatinine 1.08 H, Estim Creat Clear Calc 37.79, Est GFR (MDRD) Af Amer 64, Est GFR (MDRD) Non-Af 53 L, BUN/Creatinine Ratio 10.2, Glucose 379 H, Calcium 9.5 Radiography Diagnostic Testing: Radiology Impression Chest X-Ray 01/26/23 20:25 IMPRESSION: There is a left pleural effusion vs prominent pleural fat. Left lower lobe infiltrate. Electronically Signed: Andrew Wheeler MD at 20:49 EDT Reading Location ID and State: [facility] / [place] , Service support , Physical Exam Const alert, oriented x3, no apparent distress and well nourished Constitutional Narrative: Morbidly obese, elderly white female, sitting up on the edge of the bed, appears older than stated age, nontoxic, intermittent quick shallow breathing that appears to be related to anxiety without signs of respiratory distress otherwise, appears comfortable at this time HEENT head/scalp atraumatic and moist oral mucous membranes HEENT Narrative: Patient is edentulous, Mallampati is 3, no thrush Head and Scalp: normocephalic Resp normal respiratory effort, no retractions and no use of accessory muscles Resp Narrative: Few scattered end expiratory wheezes Auscultation: wheezes; Negative for rales or rhonchi Cardio regular rate, regular rhythm, S1 normal heart sound, S2 normal heart sound, no murmurs, no rub, no gallops and no clicks GI normal to inspection, nondistended, normoactive bowel sounds, soft to palpation and non-tender Extremity no clubbing, cyanosis or edema Extremity Narrative: Pedal pulses are 2+, onychomycosis bilateral lower extremities Neuro oriented x3, moves all extremities and no focal motor deficits Speech: speech normal Psych Mood & Affect: anxious Assessment & Plan Assessment/Plan (1) Community acquired pneumonia: (2) COPD with acute exacerbation: (3) Shortness of breath: PLAN: Plan Shortness of breath due to acute exacerbation of COPD/possible community-acquired pneumonia -Patient is on her baseline oxygen with oxygen saturations of 99% -Was admitted due to outpatient intolerance of oral antibiotics -Patient does not tolerate oral steroids and will leave on Solu-Medrol while hospitalized -Continue antibiotics with ceftriaxone and complete 7-day course given sputum change--> should be able to discharge on Keflex -Continue pulmonary toilet -No need to check strep pneumo and Legionella antigens as she does not have any severe pneumonia symptoms at this time -Blood cultures are ordered and pending however I do suspect yield will be low -Anticipate discharge tomorrow as long as patient remains stable on her baseline oxygen DM-2 -Patient hyperglycemic this morning but her basal insulin was not ordered -Start basal insulin 40 units -Continue lispro 3 times a day but increase from 14 units at home dose of 20 units 3 times daily -Continue sliding scale -Suspect that blood sugars will be elevated with steroid use -Accu-Cheks as ordered -Carb controlled diet -Continued outpatient endocrinology follow-up GERD -Continue PPI CAD/HTN/HPL/HFpEF -Continue atorvastatin -Continue Lasix -Continue isosorbide mononitrate -Continue losartan -Continue metoprolol -Continue Plavix -Recent cardiac catheterization on 12/25/2022 that showed patent stents in the mid LAD and first diagonal with ostial stenosis of the diagonal vessel that was unchanged compared to previous cardiac catheterization and ongoing medical therapy was ended Chronic hypoxic respiratory failure -Patient is on 4 L to 5 L at baseline -Patient is currently on 4 L with oxygen saturations at 99% -Restart home inhalers at discharge -Pulmonary toilet as noted above -Recommended continued outpatient follow-up with pulmonary medicine--> Per previous documentation patient should have an upcoming appointment with Dr. Nuno MARK -Continue BiPAP therapy at night Morbid obesity -BMI 40.4 -Recommend weight loss -complicates treatment, prognosis, outcomes Anxiety/depression -Continue citalopram -Continue nightly Xanax -Continue risperidone DVT prophylaxis -Continue enoxaparin but increase to 40 twice daily with BMI being greater than 40 CODE STATUS -Full code Charges/Coding Visit Charges Inpatient E&M: 68693 Subs Hosp L2
[2023-01-27] MEDS: Insulin Lispro 100 UNIT/ML INSULN.PEN SC ×5 (07:49→22:56)
[2023-01-27] MEDS: Metoprolol Tartrate 25 MG Tablet 12.5 MG PO ×2 (07:56→22:58)
[2023-01-27] MEDS: predniSONE 20 MG Tablet 40 MG PO (07:56)
[2023-01-27] MEDS: Isosorbide Mononitrate 60 MG Tablet PO (07:56)
[2023-01-27] MEDS: Furosemide 20 MG Tablet PO (07:56)
[2023-01-27] MEDS: Pantoprazole Sodium 40 MG Tablet PO (07:56)
[2023-01-27] MEDS: Clopidogrel Bisulfate 75 MG Tablet PO (07:57)
[2023-01-27] MEDS: Losartan Potassium 25 MG Tablet PO (07:57)
[2023-01-27] MEDS: Enoxaparin 40 MG/0.4 ML Syringe SC (07:57)
[2023-01-27 08:09] LABS: Bedside Glucose 415 mg/dL (74-106)
--- NOTE | 2023-01-27 10:35 | CASEMGMT ---
HARLEEN LUCIANO Assessment: Face to Face with pt for initial transition planning/care coordination assessment. HARLEEN LUCIANO introduced self and role at [facility], pt voices understanding and consents to assessment. Pt is A/O x4 and answers all questions appropriately at this time. Pt lying in bed with oxygen on in no distress. Care providers, pharmacy, and demographics verified/updated. Admitting Dx: pneumonia PCP:Santy Specialists:SHIVAM, cardio; Yaakov pulm; jason Heller; Tessa, derm; Jovon, pod Preferred Pharmacy: [facility] Insurance: [facility] Prescription Benefit: yes LNOK: Farideh Vargasdesire Living Arrangements: Pt lives in a ground level apt with 2 steps to enter with a rail. Pt reports she is I in ADL's and denies concerns at home. Transportation: Pt drives self and denies concerns with transportation. DME/HHC/SNF: Pt has a BP cuff, oxygen through [employer] at 4L cont, will verify. Pt has a Inogen present in room. Pt has a pox, BGM with sufficient supplies as well as insulin and needles. Pt states she gets her insulin from the profile trimmer, signs a form for this program. Pt has had [facility] through the [employer] but states she has been told now that she makes too much money and does not receive these services any longer. Pt denies hx of HHC and has been to [facility]. Pt states no concerns with going home at time of dc. Pt reports she is not homebound. Discussed Patient Link with patient and she states she is not interested, she can monitor herself. Pt reports she has no money until the 1st of the month if she should need new rx. Pt reports she doesn't even have 10 dollars. She has borrowed money from her son already and was told she cannot borrow more. Pt states she has no other family or friends to borrow from. Discussed that sometimes [facility] has low cost medications and we can see about the cost there. Pt states she does not like [facility]. She is aware that once her dc meds are ordered, the cost will be checked. Updated SW as well. Pt states no further concerns/needs. CM to follow. Advised pt to ask CM if any further question/concerns/needs arise, voices understanding. Pt Goal: Home Plan: Home, follow for cost of meds and change in oxygen rx.
[2023-01-27] MEDS: Insulin Lispro 100 UNIT/ML INSULN.PEN 20 UNIT SC ×2 (11:29→16:46)
--- NOTE | 2023-01-27 11:35 | NURSING ---
pt blood glucose 486, verbally spoke to dr. harrison, insulin given
[2023-01-27 11:49] LABS: Bedside Glucose 486 mg/dL (74-106)
[2023-01-27 13:10] LABS: Bedside Glucose 418 mg/dL (74-106)
[2023-01-27 14:24] LABS: Bedside Glucose 415 mg/dL (74-106)
[2023-01-27] MEDS: Bisacodyl 5 MG Tablet PO (16:51)
[2023-01-27 17:03] LABS: Bedside Glucose 369 mg/dL (74-106)
[2023-01-27] MEDS: ALPRAZolam 0.25 MG Tablet PO (18:40)
[2023-01-27] MEDS: Acetaminophen 325 MG Tablet 650 MG PO (18:40)
[2023-01-27] MEDS: Citalopram 40 MG TABLET PO (22:58)
[2023-01-27] MEDS: Atorvastatin Calcium 80 MG Tablet PO (22:58)
[2023-01-27] MEDS: Senna/Docusate Sodium 1 Tablet 2 TABLET PO (23:02)
[2023-01-27] MEDS: Insulin Glargine-YFGN 100 UNIT/ML Pen 40 UNIT SC (23:03)
[2023-01-27] MEDS: 0.9% Saline Lock 10 ML Syringe IV (23:05)
[2023-01-27 23:44] LABS: Bedside Glucose 361 mg/dL (74-106)
[2023-01-28] VITALS (10 sets, daily range): BP systolic 134–148; BP diastolic 49–64; PULSE 63–84; RESP 12–24; TEMP 36.2–36.6; O2SAT 95–100
[2023-01-28 06:25] LABS: Absolute Lymphocyte Count 1.22 X10^3/uL (0.83-4.51); Absolute Neutrophil Count 12.4 X10^3/uL (2.0-7.7); Basophil# 0.03 X10^3/uL; Basophil% 0.2 % (0-1); Eosinophil# 0.01 X10^3/uL; Eosinophils% 0.1 % (0-5); Hemoglobin 11.8 g/dL (12.0-15.0); Lymphocyte # 1.22 X10^3/ul (0.83-4.51); Lymphocyte % 8.3 % (19-41); Mean Corp Hgb Conc 32.8 g/dL (32-36); Mean Corpuscular Hgb 29.7 pg (27.0-32.0); Mean Corpuscular Volume 90.7 fL (81-99); Mean Platelet Vol. 11.3 fl (6.2-12.0); Monocyte% 6.1 % (0-10); NRBC Flagged by Analyzer 0 % (0-5); Neutrophil # 12.38 X10^3/uL (2.7-7.7); Neutrophil % 83.8 % (47-70); Platelet Count 320 K/mm3 (150-450); RBC Distribution Width CV 12.1 % (11.6-14.6); RBC Distribution Width SD 39.8 fl (35.1-43.9); Red Blood Count 3.97 M/mm3 (4.2-5.4); White Blood Count 14.8 K/mm3 (4.4-11.0)
[2023-01-28 07:05] LABS: Anion Gap 7 (5-15); BUN 17 mg/dL (7-18); BUN/Creat Ratio 20.1 RATIO (10-20); Calcium,Total 9.4 mg/dL (8.5-10.1); Chloride 102 mmol/L (98-107); Creatinine, Serum 0.84 mg/dL (0.55-1.02); EST Glomerular Filtration Rate 70 mL/min (>60); Est Glom Filt Rate - Afr Amer 85 mL/min (>60); Estimated Creatinine Clearance 48.58 ml/min; Glucose 257 mg/dL (74-106); Potassium 3.9 mmol/L (3.5-5.1); Sodium Level 137 mmol/L (136-145)
[2023-01-28] MEDS: Budesonide Respules 0.5 MG/2 ML AMPUL.NEB. INHALATION (07:21)
[2023-01-28] MEDS: Ipratropium/Albuterol Sulfate 3 ML AMPUL.NEB INHALATION ×2 (07:21→10:45)
[2023-01-28] MEDS: Furosemide 20 MG Tablet PO (08:00)
[2023-01-28] MEDS: Losartan Potassium 25 MG Tablet PO (08:00)
[2023-01-28] MEDS: Clopidogrel Bisulfate 75 MG Tablet PO (08:00)
[2023-01-28] MEDS: Isosorbide Mononitrate 60 MG Tablet PO (08:00)
[2023-01-28] MEDS: Enoxaparin 40 MG/0.4 ML Syringe SC (08:01)
[2023-01-28] MEDS: Pantoprazole Sodium 40 MG Tablet PO (08:01)
[2023-01-28] MEDS: Senna/Docusate Sodium 1 Tablet 2 TABLET PO (08:13)
[2023-01-28] MEDS: Metoprolol Tartrate 25 MG Tablet 12.5 MG PO (08:13)
[2023-01-28] MEDS: 0.9% Saline Lock 10 ML Syringe IV (08:19)
[2023-01-28] MEDS: Insulin Lispro 100 UNIT/ML INSULN.PEN SC ×2 (08:19→11:30)
[2023-01-28] MEDS: Insulin Lispro 100 UNIT/ML INSULN.PEN 20 UNIT SC ×2 (08:20→11:30)
[2023-01-28 08:21] LABS: Bedside Glucose 243 mg/dL (74-106)
--- NOTE | 2023-01-28 10:39 | DS.PCM_ITS ---
Providers Date of Admission: 01/26/23 Date of Discharge: 01/28/23 Primary Care Physician: Dr. Billy Madera MD Reason For Visit: PNEUMONIA Diagnosis Discharge Diagnosis (1) Community acquired pneumonia: Status: Acute Code(s): J18.9 - Pneumonia, unspecified organism (2) COPD with acute exacerbation: Status: Chronic Code(s): J44.1 - Chronic obstructive pulmonary disease with (acute) exacerbation (3) Shortness of breath: Status: Acute Code(s): R06.02 - Shortness of breath Medications at Discharge Home Medications Handicap Placard #1 ea 12/12/20 flash glucose scanning reader (Flare Code Emily 2 Sharon) #1 ea 01/31/21 acetaminophen 500 mg tablet 500 mg PO QHS pain 10/21/21 bisacodyl 5 mg tablet,delayed release (Dulcolax (bisacodyl)) 5 mg PO QHS PRN constipation 30 days #30 tabs 11/13/21 pen needle, diabetic 32 gauge x 5/32 #50 ea 02/11/22 blood sugar diagnostic (True Metrix Glucose Test Strip) #100 ea 09/11/22 blood-glucose meter (True Metrix Glucose Meter) #1 ea 09/11/22 budesonide-formoterol HFA 160 mcg-4.5 mcg/actuation aerosol inhaler (Symbicort) 2 puff inhalation BID Breo too expensive for patient, not covered #10.2 grams 10/15/22 albuterol sulfate 90 mcg/actuation aerosol inhaler 2 puff inhalation Q6H PRN shortness of breath or wheezing #18 grams 11/06/22 ipratropium 0.5 mg-albuterol 3 mg (2.5 mg base)/3 mL nebulization soln 3 ml inhalation Q4H PRN PRN SOB &/OR WHEEZING #180 mL 11/10/22 cane #1 ea 11/16/22 citalopram 40 mg tablet 40 mg PO QHS depression #90 tabs 11/16/22 risperidone 1 mg tablet 1 mg PO QHS anxiety #90 tabs 12/07/22 insulin glargine 100 unit/mL (3 mL) subcutaneous pen (Basaglar KwikPen U-100 Insulin) 40 unit (0.4 mL) subcut DAILY diabetic managment #32.4 mL 05/20/23 isosorbide mononitrate 60 mg tablet,extended release 24 hr 60 mg PO DAILY BP #90 tabs 12/26/22 nitroglycerin 0.4 mg sublingual tablet 0.4 mg sublingual Q5-15M PRN Pain #30 tabs 12/26/22 flash glucose sensor (FreeStyle Emily 2 Sensor kit) #2 ea 01/06/23 alprazolam 0.25 mg tablet 0.25 mg PO QHS anxiety 01/26/23 atorvastatin 80 mg tablet 80 mg PO QHS cholesterol 01/26/23 clopidogrel 75 mg tablet 75 mg PO DAILY blood thinner 01/26/23 furosemide 20 mg tablet (Lasix) 20 mg PO DAILY diuretic 01/26/23 insulin lispro 100 unit/mL subcutaneous pen (Humalog KwikPen (U-100) Insulin) 20 unit subcut TID diabetes 01/26/23 losartan 25 mg tablet 25 mg PO DAILY blood pressure 01/26/23 metoprolol tartrate 25 mg tablet 12.5 mg PO BID blood pressure 01/26/23 pantoprazole 40 mg tablet,delayed release 40 mg PO DAILY stomach 01/26/23 cephalexin 500 mg capsule 500 mg PO TID #15 caps 01/28/23 prednisone 20 mg tablet 40 mg PO DAILY #10 tabs 01/28/23 Hospital Course Summary of Care Provided Minutes Spent on Discharge: 36 Hospital Course: Mrs. Vargas is a 72-year-old female who has COPD and overlap syndrome on chronic oxygen at 4-5 L nasal cannula who presented to the emergency department at [facility] on 01/26/2023 with worsening shortness of breath.? The [facility] last , 01/22/2023 and complained of cough and congestion.? She was diagnosed with pneumonia and discharged on cefdinir and azithromycin.? Patient indicated she completed the course of azithromycin on the day of presentation however she was not able to take the cefdinir because it made her too nauseated.? She did not call for an alternative medication.? She reported no significant improvement in her breathing and actually felt more short of breath and that her presentation.? She was using her home nebulizers more frequently than normal.? She has not had a fever but did indicate she was coughing up yellow-colored sputum which is a change for her.? She also reported decreased appetite but in the emergency department reported feeling very hungry.? She denied any wheezing.? She was admitted to the medical floor and treated for acute exacerbation of COPD along with antibiotics for pneumonia given her sputum change and her history of COPD.? She did not requiring any oxygen above her baseline throughout the entire admission and current oxygen saturation is 99% on 4 L nasal cannula.? The patient was placed on ceftriaxone, IV steroids, and aggressive pulmonary toilet. She was feeling much better by 01/28/2023 and wanted to go home. She did not want to try taking her cefdinir at home in conjunction with antiemetics and wanted a new antibiotic therefore we prescribed Keflex for another 5 days. I am not totally convinced she actually has a pneumonia. We are not able to obtain a sputum sample and appears infiltrate was there previously, however, with her change in sputum production and her history of severe severe COPD we will go ahead and complete treatment. She was discharged on Keflex for another 5 days of antibiotics. We will also discharged on a burst of prednisone as she does not tolerate long courses of prednisone well. She will receive 40 mg daily for 5 days. We did discuss that her blood sugars would be elevated and she voiced understanding and stated she knew this from previous experience. [facility]23. She has an upcoming pulmonary medicine appointment in February. I encouraged her to keep this and to follow-up with her primary care physician within the next month as needed. Patient does have significant anxiety at baseline and I feel that this significantly contributes to her shortness of breath and respiratory issues overall. Discharge diagnoses: Shortness of breath Acute exacerbation COPD DM-2 GERD CAD Hypertension Hyperlipidemia HFpEF-compensated Chronic hypoxic respiratory failure MARK Morbid obesity Anxiety Depression Physical Exam Const alert, oriented x3, no apparent distress and well nourished Constitutional Narrative: Morbidly obese, elderly white female, lying in bed in side-lying, sleeping but awakens to voice, appears older than stated age, appears comfortable and nontoxic General Appearance: cooperative, comfortable, well kempt and well developed Orientation / Consciousness: awake, oriented to person, oriented to place and oriented to time Exam Limitations: no limitations Nutritional Appearance: morbidly obese HEENT normocephalic, head/scalp atraumatic, hearing grossly normal bilaterally and moist oral mucous membranes HEENT Narrative: Mallampati is 3, no thrush Eyes PERRL, EOMs intact bilaterally and conjunctivae normal Eyes Narrative: No scleral icterus Neck no lymphadenopathy and supple Neck Narrative: Trachea midline, no thyroid enlargement Resp normal respiratory effort, no retractions and no use of accessory muscles Resp Narrative: Few scattered end expiratory wheezes Auscultation: wheezes; Negative for rales or rhonchi Cardio regular rate, regular rhythm, S1 normal heart sound, S2 normal heart sound, no murmurs, no rub, no gallops and no clicks GI normal to inspection, nondistended, normoactive bowel sounds, soft to palpation and non-tender Extremity no clubbing, cyanosis or edema Extremity Narrative: Pedal pulses are 2+, onychomycosis bilateral lower extremities Skin no rashes or lesions noted, no wounds, skin turgor normal and no jaundice Neuro oriented x3, CN's II-XII intact bilaterally, moves all extremities and no focal motor deficits Neuro Narrative: Very minimal generalized weakness with proximal musculature being weaker than distal Speech: speech normal Psych affect normal Psych Narrative: Patient must less anxious today, eye contact is good and interaction is appropriate Weight / BMI Weight Weight: 100.3 kg Body Mass Index (BMI) 40.4 ABG / Lab / Microbiology Data Result Diagrams: 01/28/23 05:44 01/28/23 05:44 Laboratory: Laboratory Results - last 24 hr 01/27/23 11:28: POC Glucose 486 H* 01/27/23 12:51: POC Glucose 418 H 01/27/23 13:57: POC Glucose 415 H 01/27/23 16:45: POC Glucose 369 H 01/27/23 22:53: POC Glucose 361 H 01/28/23 05:44: WBC 14.8 H, RBC 3.97 L, Hgb 11.8 L, Hct 36.0 L, MCV 90.7, MCH 29.7, MCHC 32.8, RDW Std Deviation 39.8, RDW Coeff of Malcom 12.1, Plt Count 320, MPV 11.3, Immature Gran % (Auto) 1.500 H, Neut % (Auto) 83.8 H, Lymph % (Auto) 8.3 L, [place]alle % (Auto) 6.1, Eos % (Auto) 0.1, Baso % (Auto) 0.2, Absolute Neuts (auto) 12.4 H, Absolute Lymphs (auto) 1.22, Nucleated RBC % 0 01/28/23 05:44: Sodium 137, Potassium 3.9, Chloride 102, Carbon Dioxide 28.0, Anion Gap 7, BUN 17, Creatinine 0.84, Estim Creat Clear Calc 48.58, Est GFR (MDRD) Af Amer 85, Est GFR (MDRD) Non-Af 70, BUN/Creatinine Ratio 20.1 H, Glucose 257 H, Calcium 9.4 01/28/23 07:52: POC Glucose 243 H D/C Instructions Discharge Diet: Low fat / Low cholesterol and 1800 Calorie Control Diet Discharge Activity: Return to Normal Activity Meaningful Use Info Meaningful Use Diagnoses (Choose all that apply): None applicable Discharge Plan Admission Admit Date/Time: 01/26/23 21:10 Primary Reason for Your Visit: Shortness of breath Attending Provider: Cindi Moraes Primary Care Provider: Billy Madera Consulting Providers: Yuan Singh Discharge Orders/Prescriptions Prescriptions: New cephalexin 500 mg capsule 500 mg PO TID Qty: 15 0RF prednisone 20 mg tablet 40 mg PO DAILY Qty: 10 0RF Continued (DME) Handicap Placard See Rx Instructions .ROUTE .MEDSUPPLY Qty: 1 0RF Rx Instructions: As directed, length of time 3 years citalopram 40 mg tablet 40 mg PO QHS Qty: 90 3RF (DME) cane Device See Rx Instructions .Route Qty: 1 0RF Rx Instructions: As directed acetaminophen 500 MG tablet 500 mg PO QHS Rx Instructions: over the counter. no prescription required. insulin glargine [Basaglar KwikPen U-100 Insulin] 100 unit/mL (3 mL) insulin pen 40 unit subcut DAILY Qty: 32.4 1RF Rx Instructions: daily at bedtime isosorbide mononitrate 60 mg tablet extended release 24 hr 60 mg PO DAILY Qty: 90 3RF nitroglycerin 0.4 mg tablet, sublingual 0.4 mg SUBLINGUAL Q5-15M PRN (Reason: Pain) Qty: 30 0RF atorvastatin 80 mg tablet 80 mg PO QHS clopidogrel 75 mg tablet 75 mg PO DAILY alprazolam 0.25 mg tablet 0.25 mg PO QHS pantoprazole 40 mg tablet,delayed release (DR/EC) 40 mg PO DAILY losartan 25 mg tablet 25 mg PO DAILY furosemide [Lasix] 20 mg tablet 20 mg PO DAILY insulin lispro [Humalog KwikPen Insulin] 100 unit/mL insulin pen 20 unit SC TID Rx Instructions: Hold if glucose less than 130 mg/dl metoprolol tartrate 25 mg tablet 12.5 mg PO BID Rx Instructions: (DME) FreeStyle Emily 2 Sharon Misc See Rx Instructions .ROUTE .MEDSUPPLY Qty: 1 0RF Rx Instructions: As directed bisacodyl [Dulcolax (bisacodyl)] 5 mg tablet,delayed release (DR/EC) 5 mg PO QHS PRN (Reason: constipation) 30 Days Qty: 30 3RF (DME) pen needle, diabetic 32 gauge x /32 needle See Rx Instructions .ROUTE .MEDSUPPLY Qty: 50 0RF Rx Instructions: 4x/day (DME) blood-glucose meter [True Metrix Glucose Meter] [facility] See Rx Instructions .Route Qty: 1 0RF Rx Instructions: As directed (DME) True Metrix Glucose Test Strip Strip See Rx Instructions .Route Qty: 100 7RF Rx Instructions: tid budesonide-formoterol [Symbicort] 160-4.5 mcg/actuation HFA aerosol inhaler 2 puff inhalation BID Qty: 10.2 0RF albuterol sulfate 90 mcg/actuation HFA aerosol inhaler 2 puff INHALATION Q6H PRN (Reason: shortness of breath or wheezing) Qty: 18 3RF ipratropium-albuterol 0.5 mg-3 mg(2.5 mg base)/3 mL solution for nebulization 3 ml INHALATION Q4H PRN PRN (Reason: SOB &/OR WHEEZING) Qty: 180 6RF risperidone 1 mg tablet 1 mg PO QHS Qty: 90 1RF (DME) FreeStyle Emily 2 Sensor Kit See Rx Instructions .ROUTE .MEDSUPPLY Qty: 2 3RF Rx Instructions: As directed Referrals / Follow Up: Haroon Nuno MD [Med Staff - Active Staff] - See Referral Note (As scheduled for February) Billy Madera MD [Primary Care Provider] - Within 1 Month Disposition Disposition (needs filled in before D/C Order can be placed): Home, Self Care Charges/Coding Visit Charges Inpatient E&M: 54274 Disch Hosp >30min
--- NOTE | 2023-01-28 11:31 | PHA.DC.MC ---
Pharmacy Service has performed discharge medication reconciliation and counseling for this patient. 1. CEPHALEXIN 500MG PO TID X 5 DAYS 2. PREDNISONE 40MG PO DAILY X 5 DAYS The patient's discharge medication list was reviewed for discrepancies and discrepancies were resolved. Home Medications Handicap Placard #1 ea 12/12/20 flash glucose scanning reader ([employer] Emily 2 [place]) #1 ea 01/31/21 acetaminophen 500 mg tablet 500 mg PO QHS pain 10/21/21 bisacodyl 5 mg tablet,delayed release (Dulcolax (bisacodyl)) 5 mg PO QHS PRN constipation 30 days #30 tabs 11/13/21 pen needle, diabetic 32 gauge x #50 ea 02/11/22 blood sugar diagnostic (True Metrix Glucose Test Strip) #100 ea 09/11/22 blood-glucose meter (True Metrix Glucose Meter) #1 ea 09/11/22 budesonide-formoterol HFA 160 mcg-4.5 mcg/actuation aerosol inhaler (Symbicort) 2 puff inhalation BID Breo too expensive for patient, not covered #10.2 grams 10/15/22 albuterol sulfate 90 mcg/actuation aerosol inhaler 2 puff inhalation Q6H PRN shortness of breath or wheezing #18 grams 11/06/22 ipratropium 0.5 mg-albuterol 3 mg (2.5 mg base)/3 mL nebulization soln 3 ml inhalation Q4H PRN PRN SOB &/OR WHEEZING #180 mL 11/10/22 cane #1 ea 11/16/22 citalopram 40 mg tablet 40 mg PO QHS depression #90 tabs 11/16/22 risperidone 1 mg tablet 1 mg PO QHS anxiety #90 tabs 12/07/22 insulin glargine 100 unit/mL (3 mL) subcutaneous pen (Basaglar KwikPen U-100 Insulin) 40 unit (0.4 mL) subcut DAILY diabetic managment #32.4 mL 12/26/22 isosorbide mononitrate 60 mg tablet,extended release 24 hr 60 mg PO DAILY BP #90 tabs 12/26/22 nitroglycerin 0.4 mg sublingual tablet 0.4 mg sublingual Q5-15M PRN Pain #30 tabs 12/26/22 flash glucose sensor (FreeStyle Emily 2 Sensor kit) #2 ea 01/06/23 alprazolam 0.25 mg tablet 0.25 mg PO QHS anxiety 01/26/23 atorvastatin 80 mg tablet 80 mg PO QHS cholesterol 01/26/23 clopidogrel 75 mg tablet 75 mg PO DAILY blood thinner 01/26/23 furosemide 20 mg tablet (Lasix) 20 mg PO DAILY diuretic 01/26/23 insulin lispro 100 unit/mL subcutaneous pen (Humalog KwikPen (U-100) Insulin) 20 unit subcut TID diabetes 01/26/23 losartan 25 mg tablet 25 mg PO DAILY blood pressure 01/26/23 metoprolol tartrate 25 mg tablet 12.5 mg PO BID blood pressure 01/26/23 pantoprazole 40 mg tablet,delayed release 40 mg PO DAILY stomach 01/26/23 cephalexin 500 mg capsule 500 mg PO TID #15 caps 01/28/23 prednisone 20 mg tablet 40 mg PO DAILY #10 tabs 01/28/23 The patient was counseled on the following discharge medications and changes in medications for homegoing were reviewed. The Reason for Use, instructions for use, and potential side effects were reviewed for all new medications. The patient's questions regarding all of their medications were answered. The patient was able to verbally demonstrate an understanding of their discharge medications. Patient counseled by pharmacy order entry technicianSathish.
[2023-01-28 11:46] LABS: Bedside Glucose 187 mg/dL (74-106)
--- NOTE | 2023-01-28 12:30 | CASEMGMT ---
HARLEEN CM: This RN CM face to face with pt at bedside. Discussed pt's previous concern with paying for medications at discharge. Pt confirms this concern and states she does not have any money until 02/06/23 and she is unable to borrow from her son. Relayed cost of medications per [facility] as $10.50. Pt states she does not have this amount and requests assistance. Noted [facility] [employer] is not open for walk ins on this day (open M/W/F only). Explained prescription assistance program at [facility] to pt and that this can be used once per year. Pt expressed understanding and wishes to use this program. [facility] requested prescriptions be sent to [facility], call transferred to [facility] for further collaboration to facilitate the transfer. Intervention completed and information sent to [facility]. Iván Beatty RN CM
== END 2023-01-28 13:52 | disposition home or self-care (01) | DRG 191 ==
LOC: ED 20:59 → MS3 21:57
PROVIDERS: Admitting Provider Hospitalist; Emergency Provider Emergency Medicine; PCP Internal Medicine; Visit Provider Internal Medicine
DX: J44.1 Chronic obstructive pulmonary disease with (acute) exacerbation (principal); J96.11 Chronic respiratory failure with hypoxia; I50.32 Chronic diastolic (congestive) heart failure; Z68.41 Body mass index [BMI] 40.0-44.9, adult; I11.0 Hypertensive heart disease with heart failure; E11.65 Type 2 diabetes mellitus with hyperglycemia; E66.01 Morbid (severe) obesity due to excess calories; Z79.4 Long term (current) use of insulin; K21.9 Gastro-esophageal reflux disease without esophagitis; I25.10 Atherosclerotic heart disease of native coronary artery without angina pectoris; E78.5 Hyperlipidemia, unspecified; G47.33 Obstructive sleep apnea (adult) (pediatric); H92.02 Otalgia, left ear; F41.9 Anxiety disorder, unspecified; F32.A Depression, unspecified; G89.29 Other chronic pain; Z99.81 Dependence on supplemental oxygen; Z79.02 Long term (current) use of antithrombotics/antiplatelets; Z79.899 Other long term (current) drug therapy; Z87.891 Personal history of nicotine dependence; Z95.5 Presence of coronary angioplasty implant and graft
CPT/HCPCS: 36415; 71045; 80048; 82962; 83880; 84484; 85025; 87040; 93005; 94002; 94003; 94640; 94762; 99285; J7050; A4216; J0696

== ENCOUNTER → 2023-02-17 | Outpatient (CLI) | payer MEDICARE, SELFPAY ==
[2021-11-03 12:08] VITALS: BMI 34.9
[2023-02-17 16:34] LABS: Absolute Lymphocyte Count 1.58 X10^3/uL (0.83-4.51); Absolute Neutrophil Count 7.8 X10^3/uL (2.0-7.7); Basophil# 0.07 X10^3/uL; Basophil% 0.7 % (0-1); Eosinophil# 0.23 X10^3/uL; Eosinophils% 2.2 % (0-5); Hematocrit 39.7 % (37-47); Hemoglobin 12.7 g/dL (12.0-15.0); Lymphocyte # 1.58 X10^3/ul (0.83-4.51); Lymphocyte % 15.4 % (19-41); Mean Corpuscular Hgb 29.8 pg (27.0-32.0); Mean Corpuscular Volume 93.2 fL (81-99); Mean Platelet Vol. 10.8 fl (6.2-12.0); Monocyte# 0.56 X10^3/uL; Monocyte% 5.4 % (0-10); NRBC Flagged by Analyzer 0 % (0-5); Neutrophil # 7.82 X10^3/uL (2.7-7.7); Platelet Count 302 K/mm3 (150-450); RBC Distribution Width CV 12.6 % (11.6-14.6); RBC Distribution Width SD 42.8 fl (35.1-43.9); Red Blood Count 4.26 M/mm3 (4.2-5.4); White Blood Count 10.3 K/mm3 (4.4-11.0)
== END | disposition home or self-care (01) ==
LOC: BIMLAB 15:16
PROVIDERS: PCP Internal Medicine; Visit Provider Internal Medicine
DX: R05.9 Cough, unspecified (principal)
CPT/HCPCS: 36415; 85025

== ENCOUNTER 2023-03-02 18:02 | Emergency (ER) | payer MEDICARE, SELFPAY ==
[2021-11-03 12:08] VITALS: BMI 34.9
[2023-03-02 18:05] VITALS: BP 172/69; PULSE 79; RESP 18; TEMP 36.7; O2SAT 99; BMI 40.7
[2023-03-02 18:19] VITALS: BP 154/58; PULSE 75; RESP 18; O2SAT 98
--- NOTE | 2023-03-02 18:34 | US_ITS ---
STUDY: VENOUS DOPPLER ULTRASOUND - LEFT LOWER EXTREMITY REASON FOR EXAM: Female, 72 years old. LT LEG PAIN TECHNIQUE: Ultrasound evaluation of the deep vein system to include rob-scale imaging and compression was performed. Rob-scale imaging and Doppler sonographic evaluation, including duplex spectral analysis and qualitative color flow sonography, was performed. COMPARISON: None. FINDINGS: Common Femoral Vein: Normal compression. Normal color Doppler. Common Femoral Vein/Greater Saphenous Junction: Normal compression. Deep Femoral Vein: Not interrogated Femoral Proximal: Normal compression. Femoral Middle: Normal compression. Normal color Doppler. Femoral Distal: Normal compression. Popliteal Vein: Normal compression. Normal color Doppler. Posterior Tibial Vein: Normal compression. Peroneal Vein: Normal compression. There is no demonstrated deep venous thrombosis. 4.4 x 1.6 x 3.1 cm anechoic area posterior medial to the knee. 4.2 x 0.3 x 2.4 cm anechoic area in the medial mid calf. US/Venous Duplex Imag/Limited/Uni IMPRESSION: Desai''s cyst. 4.2 cm fluid-filled structure in the medial mid calf, probably benign. No finding of DVT. Electronically Signed: Ethan Thurman MD at 19:44 EDT ,
--- NOTE | 2023-03-02 18:50 | ED.VIS.LOWEX ---
HPI History of Present Illness Chief Complaint: Lower Extremity Injury Detail of Chief Complaint: Charley horse and swelling left calf Informant: patient Occured/Mechanism Comment: There is no history of trauma Onset/Context/Timing Onset: Weeks (Approximately 2 weeks) Context: Sudden Onset Timing: Continuous Quality of Pain: Dull and Aching Location: Mid left calf Current Severity: Mild Maximum Severity: Moderate Worsened by: Palpation walking Relieved by: Nothing Associated Symptoms Associated Symptoms: Negative for Parasthesia, Weakness or Loss of Funtion Narrative Narrative: Patient is a 72-year-old woman with no history of VTE and no risk factors for VTE who presents with atraumatic left calf pain and swelling. Started approximate 2 weeks ago. He denies chest pain or shortness of breath. She is not on an anticoagulant or antithrombotic. She does not have history of bleeding disorder. She denies paresthesia, anesthesia or motor weakness. 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 Back pain Chest pain Chronic back pain Chronic respiratory failure COPD (chronic obstructive pulmonary disease) Diastolic CHF Former smoker Hepatitis HLD (hyperlipidemia) Hypertension Morbid obesity Obesity MARK treated with BiPAP Psoriasis Smoking greater than 40 pack years Thyroid nodule Type 2 diabetes mellitus Home Medications Handicap Placard #1 ea 12/12/20 [Rx Last Taken Unknown] flash glucose scanning reader (FreeStyle Emily 2 [place]) #1 ea 01/31/21 [Rx Last Taken Unknown] acetaminophen 500 mg tablet 500 mg PO QHS pain 10/21/21 [History Last Taken Unknown] bisacodyl 5 mg tablet,delayed release (Dulcolax (bisacodyl)) 5 mg PO QHS PRN constipation 30 days #30 tabs 11/13/21 [Rx Last Taken Unknown] pen needle, diabetic 32 gauge x #50 ea 02/11/22 [Rx Last Taken Unknown] blood sugar diagnostic (True Metrix Glucose Test Strip) #100 ea 09/11/22 [Rx Last Taken Unknown] blood-glucose meter (True Metrix Glucose Meter) #1 ea 09/11/22 [Rx Last Taken Unknown] albuterol sulfate 90 mcg/actuation aerosol inhaler 2 puff inhalation Q6H PRN shortness of breath or wheezing #18 grams 11/06/22 [Rx Last Taken Unknown] ipratropium 0.5 mg-albuterol 3 mg (2.5 mg base)/3 mL nebulization soln 3 ml inhalation Q4H PRN PRN SOB &/OR WHEEZING #180 mL 11/10/22 [Rx Last Taken Unknown] cane #1 ea 11/16/22 [Rx Last Taken Unknown] citalopram 40 mg tablet 40 mg PO QHS depression #90 tabs 11/16/22 [Rx Last Taken Unknown] risperidone 1 mg tablet 1 mg PO QHS anxiety #90 tabs 12/07/22 [Rx Last Taken Unknown] isosorbide mononitrate 60 mg tablet,extended release 24 hr 60 mg PO DAILY BP #90 tabs 12/26/22 [Rx Last Taken Unknown] nitroglycerin 0.4 mg sublingual tablet 0.4 mg sublingual Q5-15M PRN Pain #30 tabs 12/26/22 [Rx Last Taken Unknown] flash glucose sensor ([employer] Emily 2 Sensor kit) #2 ea 01/06/23 [Rx Last Taken Unknown] atorvastatin 80 mg tablet 80 mg PO QHS cholesterol 01/26/23 [History Last Taken Unknown] clopidogrel 75 mg tablet 75 mg PO DAILY blood thinner 01/26/23 [History Last Taken Unknown] furosemide 20 mg tablet (Lasix) 20 mg PO DAILY diuretic 01/26/23 [History Last Taken Unknown] insulin lispro 100 unit/mL subcutaneous pen (Humalog KwikPen (U-100) Insulin) 20 unit subcut TID diabetes 01/26/23 [History Last Taken Unknown] losartan 25 mg tablet 25 mg PO DAILY blood pressure 01/26/23 [History Last Taken Unknown] metoprolol tartrate 25 mg tablet 12.5 mg PO BID blood pressure 01/26/23 [History Last Taken Unknown] pantoprazole 40 mg tablet,delayed release 40 mg PO DAILY stomach 01/26/23 [History Last Taken Unknown] alprazolam 0.25 mg tablet 0.25 mg PO QHS anxiety #30 tabs 02/04/23 [Rx Last Taken Unknown] insulin glargine 100 unit/mL (3 mL) subcutaneous pen (Basaglar KwikPen U-100 Insulin) 36 unit subcut DAILY diabetic managment 02/25/23 [History Last Taken Unknown] Allergy/AdvReac Type Severity Reaction Status Date / Time amoxicillin [Amoxicillin] Allergy Intermediate Rash Verified 02/25/23 14:13 hydrocodone Allergy Intermediate SWELLING Verified 02/25/23 14:13 gabapentin [From Neurontin] Allergy Shortness Verified 02/25/23 14:13 of breath levofloxacin [From Levaquin] Allergy Hives Verified 02/25/23 14:13 pseudoephedrine HCl Allergy Shortness Verified 02/25/23 14:13 [From Sudafed] of breath red dye Allergy Hives Verified 02/25/23 14:13 prednisone AdvReac Severe mean mood Verified 02/25/23 14:13 clonazepam [From Klonopin] AdvReac Depression Verified 02/25/23 14:13 codeine AdvReac HEADACHE Verified 02/25/23 14:13 Family History Brother Heart disease Mother Colon cancer Heart disease Surgical History History of cholecystectomy History of left heart catheterization (LHC) (~09/23/20) Stented coronary artery (12/28/18) Social History Smoking Status: Former smoker pack-years: 40 how long ago did patient quit smokin year ago alcohol intake: never substance use type: does not use caffeine: Yes Type: carbonated beverages and tea what type of physical activity do you participate in: none ROS ROS ED Constitutional Constitutional ED: Denies chills, fever(s), subjective, sweats or weight loss Cardiovascular Cardiovascular: Denies chest pain, orthopnea, palpitations, paroxysmal nocturnal dyspnea or racing heartbeat Respiratory/Chest Respiratory/Chest: Denies cough, dyspnea, dyspnea on exertion, orthopnea, paroxysmal nocturnal dyspnea or sputum Musculoskeletal Musculoskeletal: Reports other Details: Per HPI narrative ; Denies arthralgias, back pain, myalgias or neck pain Neurologic Neurologic: Denies paresthesias or weakness Hematologic/Lymphatic Hematologic/Lymphatic: Denies easy bleeding or easy bruising EXAM Physical Exam Const Vital Signs: 03/02/23 18:05 03/02/23 18:19 Temperature 98.1 F Temperature Source Oral Pulse Rate 79 75 Respiratory Rate 18 18 Blood Pressure 172/69 H 154/58 H Blood Pressure Mean 103 90 Pulse Ox 99 98 Oxygen Delivery Method Nasal Cannula Nasal Cannula Oxygen Flow Rate (L/min) 4 4 Positive well nourished, well developed and obese General Appearance ED: well developed and NAD Nutritional Appearance: obese HEENT Reports moist mucous membranes normocephalic and atraumatic Eyes PERRL Eyes Narrative: Extract muscle intact. Sclera is anicteric. Neck full ROM and supple Resp normal respiratory effort, no retractions and clear to auscultation bilaterally Cardio regular rate, regular rhythm, S1 normal heart sound, S2 normal heart sound and no murmurs Extremity Extremity Narrative: There is swelling of the left leg. There is tenderness in the distribution deep venous system. There is slight discoloration of the left leg. There is no leg vein distention. There is no palpable cords. There is no pain the patient along the abductor canal. There is no popliteal angle lymphadenopathy. DP pulses palpable bilaterally and symmetric. General Extremety ED: Negative for cyanosis, edema or weight-bearing difficulty General Extremity: Negative for cyanosis, edema or weight-bearing difficulty Neuro oriented x3, CN's II-XII intact bilaterally, moves all extremities and no sensory deficits noted Sensorium / Orientation: alert Psych mental status grossly normal Skin no wounds Lesions: no lesions Rashes: no rashes MDM MDM MDM Narrative Medical decision making narrative: Diagnosis includes hematoma, Desai's cyst, DVT Radiography Diagnostic Testing: Clinical Impression(s) from Imaging Studies Venous Duplex 03/02/23 18:34 IMPRESSION: Desai''s cyst. 4.2 cm fluid-filled structure in the medial mid calf, probably benign. No finding of DVT. Electronically Signed: Ethan Thurman MD at 19:44 EDT , Treatment and Re-Evaluation Narrative: Patient has a 4.2 cm fluid collection structure in the medial mid calf. Discharge Plan Triage Chief Complaint: Lower Extremity Injury ED Provider: Pasha Thornton Dx/Rx/DC Orders Clinical Impression: Synovial cyst of popliteal space [Desai], left knee, Cyst, dermoid, leg Instructions: ED Desai's Cyst Prescriptions: No Action (DME) Handicap Placard See Rx Instructions .ROUTE .MEDSUPPLY Qty: 1 0RF Rx Instructions: As directed, length of time 3 years citalopram 40 mg tablet 40 mg PO QHS Qty: 90 3RF (DME) cane Device See Rx Instructions .Route Qty: 1 0RF Rx Instructions: As directed insulin glargine [Basaglar KwikPen U-100 Insulin] 100 unit/mL (3 mL) insulin pen 36 unit subcut DAILY Rx Instructions: daily at bedtime acetaminophen 500 MG tablet 500 mg PO QHS Rx Instructions: over the counter. no prescription required. isosorbide mononitrate 60 mg tablet extended release 24 hr 60 mg PO DAILY Qty: 90 3RF nitroglycerin 0.4 mg tablet, sublingual 0.4 mg SUBLINGUAL Q5-15M PRN (Reason: Pain) Qty: 30 0RF atorvastatin 80 mg tablet 80 mg PO QHS clopidogrel 75 mg tablet 75 mg PO DAILY pantoprazole 40 mg tablet,delayed release (DR/EC) 40 mg PO DAILY losartan 25 mg tablet 25 mg PO DAILY furosemide [Lasix] 20 mg tablet 20 mg PO DAILY insulin lispro [Humalog KwikPen Insulin] 100 unit/mL insulin pen 20 unit SC TID Rx Instructions: Hold if glucose less than 130 mg/dl metoprolol tartrate 25 mg tablet 12.5 mg PO BID Rx Instructions: (DME) FreeStyle Emily 2 [place] Misc See Rx Instructions .ROUTE .MEDSUPPLY Qty: 1 0RF Rx Instructions: As directed bisacodyl [Dulcolax (bisacodyl)] 5 mg tablet,delayed release (DR/EC) 5 mg PO QHS PRN (Reason: constipation) 30 Days Qty: 30 3RF (DME) pen needle, diabetic 32 gauge x / needle See Rx Instructions .ROUTE .MEDSUPPLY Qty: 50 0RF Rx Instructions: 4x/day (DME) blood-glucose meter [True Metrix Glucose Meter] Misc See Rx Instructions .Route Qty: 1 0RF Rx Instructions: As directed (DME) True Metrix Glucose Test Strip Strip See Rx Instructions .Route Qty: 100 7RF Rx Instructions: tid albuterol sulfate 90 mcg/actuation HFA aerosol inhaler 2 puff INHALATION Q6H PRN (Reason: shortness of breath or wheezing) Qty: 18 3RF ipratropium-albuterol 0.5 mg-3 mg(2.5 mg base)/3 mL solution for nebulization 3 ml INHALATION Q4H PRN PRN (Reason: SOB &/OR WHEEZING) Qty: 180 6RF risperidone 1 mg tablet 1 mg PO QHS Qty: 90 1RF (DME) [employer] Emily 2 Sensor Kit See Rx Instructions .ROUTE .MEDSUPPLY Qty: 2 3RF Rx Instructions: As directed alprazolam 0.25 mg tablet 0.25 mg PO QHS Qty: 30 0RF Primary Care Provider: Billy Madera Referrals: Billy Madera MD [Primary Care Provider] - Yuan Wilson DO [Med Staff - Active Staff] - 5-7 Days Disposition Disposition: Home, Self Care
== END 2023-03-02 21:43 | disposition home or self-care (01) ==
PROVIDERS: Emergency Provider Emergency Medicine; PCP Internal Medicine; Visit Provider Emergency Medicine
DX: M71.20 Synovial cyst of popliteal space [Baker], unspecified knee (principal); J44.9 Chronic obstructive pulmonary disease, unspecified; I11.0 Hypertensive heart disease with heart failure; I50.32 Chronic diastolic (congestive) heart failure; E66.01 Morbid (severe) obesity due to excess calories; E11.9 Type 2 diabetes mellitus without complications; M62.831 Muscle spasm of calf; E78.5 Hyperlipidemia, unspecified; I25.10 Atherosclerotic heart disease of native coronary artery without angina pectoris; Z87.891 Personal history of nicotine dependence
CPT/HCPCS: 93971; 99284

== ENCOUNTER 2023-03-18 20:54 | Emergency (ER) | payer MEDICARE, SELFPAY ==
[2021-11-03 12:08] VITALS: BMI 34.9
[2023-03-18 20:55] VITALS: PULSE 75; RESP 10; TEMP 36.7; O2SAT 96; BMI 40.7
[2023-03-18 20:58] VITALS: BP 166/81
--- NOTE | 2023-03-18 21:15 | EKG12_ITS ---
Test Reason : CP Blood Pressure : / mmHG Vent. Rate : 072 BPM Atrial Rate : 072 BPM P-R Int : 162 ms QRS Dur : 082 ms QT Int : 394 ms P-R-T Axes : 065 011 058 degrees QTc Int : 431 ms Normal sinus rhythm Normal ECG Confirmed by RADHA MELVIN, ANABELLE ([id number]), news video editor LEILA AGUILERA ([id number]) on 03/22/2023 8:27:32 AM Referred By: Carlos Confirmed By:MARKUS GARCIA MD
--- NOTE | 2023-03-18 21:33 | RAD_ITS ---
INDICATION: chest pain EXAMINATION/TECHNIQUE: X-RAY - portable upright AP chest x-ray COMPARISON: 01/26/2023 FINDINGS: LINES/DEVICES: None. LUNGS: No consolidation, edema or effusion. No pneumothorax. MEDIASTINUM AND CARDIOVASCULAR STRUCTURES: Cardiac silhouette not enlarged. Central airways and mediastinal contour are unremarkable. BONES AND SOFT TISSUES: No acute changes. RAD/Chest 1 View (Portable) IMPRESSION: No radiographic evidence of acute cardiopulmonary disease. Electronically Signed: Vaughn Santizo MD at 21:47 EDT ,
[2023-03-18 21:54] VITALS: RESP 30
[2023-03-18 22:00] VITALS: RESP 30
[2023-03-18 22:12] LABS: Bedside Glucose 131 mg/dL (74-106)
[2023-03-18 22:14] LABS: Anion Gap 5 (5-15); BUN 18 mg/dL (7-18); BUN/Creat Ratio 16.5 RATIO (10-20); Calcium,Total 10.3 mg/dL (8.5-10.1); Chloride 94 mmol/L (98-107); Creatinine, Serum 1.09 mg/dL (0.55-1.02); EST Glomerular Filtration Rate 53 mL/min (>60); Est Glom Filt Rate - Afr Amer 64 mL/min (>60); Estimated Creatinine Clearance 37.44 ml/min; Glucose 125 mg/dL (74-106); Potassium 4.1 mmol/L (3.5-5.1); Sodium Level 132 mmol/L (136-145); Troponin-I HS (w/2H Reflex) 8 pg/mL (3.0-54.0)
[2023-03-18 22:23] LABS: Absolute Lymphocyte Count 1.53 X10^3/uL (0.83-4.51); Basophil% 0.7 % (0-1); Eosinophil# 0.18 X10^3/uL; Eosinophils% 1.3 % (0-5); Hematocrit 38.7 % (37-47); Hemoglobin 12.6 g/dL (12.0-15.0); Lymphocyte # 1.53 X10^3/ul (0.83-4.51); Lymphocyte % 11.1 % (19-41); Mean Corp Hgb Conc 32.6 g/dL (32-36); Mean Corpuscular Hgb 29.3 pg (27.0-32.0); Monocyte# 0.89 X10^3/uL; Monocyte% 6.5 % (0-10); NRBC Flagged by Analyzer 0 % (0-5); Neutrophil # 10.95 X10^3/uL (2.7-7.7); Neutrophil % 79.7 % (47-70); Platelet Count 301 K/mm3 (150-450); RBC Distribution Width SD 39.2 fl (35.1-43.9); White Blood Count 13.7 K/mm3 (4.4-11.0)
[2023-03-18 23:00] VITALS: BP 131/92; PULSE 77; RESP 19; O2SAT 96
--- NOTE | 2023-03-18 23:01 | ED.VIS.CHEST ---
HPI History of Present Illness Chief Complaint: Chest Pain Detail of Chief Complaint: Chest pressure and shortness of breath Informant: patient Onset/Context/Timing Onset: Hours Activity at onset: sudden and rest Timing: Intermittent (Total duration 30 to 45 minutes) Quality: Positive for Heaviness (Patient states it felt like there was a heavy book on her chest) Location: Substernal Current Severity: Gone Maximum Severity: Moderate Worsened By: Nothing Relieved By: NTG (15 minutes after she took the nitro) Associated Symptoms: Positive for Dyspnea; Negative for Nausea, Vomiting, Diaphoresis, Cough, Fever, Lightheadedness, Acid Reflux or Palpitations Narrative Narrative: Patient is a 72-year-old woman with history of coronary disease. She has [address] She states she is never had an MN. She does have history of congestive heart failure with approximately 3 pillow orthopnea. She also essential hypertension, hyperlipidemia. There is a history of GERD with De La Vega's esophagitis. Patient also has history of type 2 diabetes. Prior Similar Symptoms: Yes and With Prior Angina Recent Illness/Hospitalization: No CVD Risk Factors: Positive for Hypertension, Diabetes, Hypercholesterolemia and Smoking PE Risk Factors: Negative for Recent Travel/Surgery, Recent Immobilization, Prior DVT or PE, Cancer or OCP + Smoking + >/=35 TAD Risk Factors: Positive for Hypertension and Family History; Negative for Marfan's Syndrome PFSH [facility] Medical History Anemia Anxiety and depression Asthma with COPD Atherosclerotic heart disease of [place] coronary artery without angina pectoris Back pain Chest pain Chronic back pain Chronic respiratory failure COPD (chronic obstructive pulmonary disease) Diastolic CHF Former smoker Hepatitis HLD (hyperlipidemia) Hypertension Morbid obesity Obesity MARK treated with BiPAP Psoriasis Smoking greater than 40 pack years Thyroid nodule Type 2 diabetes mellitus Home Medications Handicap Placard #1 ea 12/12/20 [Rx Last Taken Unknown] flash glucose scanning reader ([employer] Emily 2 [place]) #1 ea 01/31/21 [Rx Last Taken Unknown] acetaminophen 500 mg tablet 500 mg PO QHS pain 10/21/21 [History Last Taken Unknown] bisacodyl 5 mg tablet,delayed release (Dulcolax (bisacodyl)) 5 mg PO QHS PRN constipation 30 days #30 tabs 11/13/21 [Rx Last Taken Unknown] pen needle, diabetic 32 gauge x #50 ea 02/11/22 [Rx Last Taken Unknown] blood sugar diagnostic (True Metrix Glucose Test Strip) #100 ea 09/11/22 [Rx Last Taken Unknown] blood-glucose meter (True Metrix Glucose Meter) #1 ea 09/11/22 [Rx Last Taken Unknown] albuterol sulfate 90 mcg/actuation aerosol inhaler 2 puff inhalation Q6H PRN shortness of breath or wheezing #18 grams 11/06/22 [Rx Last Taken Unknown] ipratropium 0.5 mg-albuterol 3 mg (2.5 mg base)/3 mL nebulization soln 3 ml inhalation Q4H PRN PRN SOB &/OR WHEEZING #180 mL 11/10/22 [Rx Last Taken Unknown] cane #1 ea 11/16/22 [Rx Last Taken Unknown] citalopram 40 mg tablet 40 mg PO QHS depression #90 tabs 11/16/22 [Rx Last Taken Unknown] risperidone 1 mg tablet 1 mg PO QHS anxiety #90 tabs 12/07/22 [Rx Last Taken Unknown] isosorbide mononitrate 60 mg tablet,extended release 24 hr 60 mg PO DAILY BP #90 tabs 12/26/22 [Rx Last Taken Unknown] nitroglycerin 0.4 mg sublingual tablet 0.4 mg sublingual Q5-15M PRN Pain #30 tabs 12/26/22 [Rx Last Taken Unknown] flash glucose sensor (Free[employer] Emily 2 Sensor kit) #2 ea 01/06/23 [Rx Last Taken Unknown] atorvastatin 80 mg tablet 80 mg PO QHS cholesterol 01/26/23 [History Last Taken Unknown] clopidogrel 75 mg tablet 75 mg PO DAILY blood thinner 01/26/23 [History Last Taken Unknown] furosemide 20 mg tablet (Lasix) 20 mg PO DAILY diuretic 01/26/23 [History Last Taken Unknown] insulin lispro 100 unit/mL subcutaneous pen (Humalog KwikPen (U-100) Insulin) 20 unit subcut TID diabetes 01/26/23 [History Last Taken Unknown] losartan 25 mg tablet 25 mg PO DAILY blood pressure 01/26/23 [History Last Taken Unknown] metoprolol tartrate 25 mg tablet 12.5 mg PO BID blood pressure 01/26/23 [History Last Taken Unknown] pantoprazole 40 mg tablet,delayed release 40 mg PO DAILY stomach 01/26/23 [History Last Taken Unknown] insulin glargine 100 unit/mL (3 mL) subcutaneous pen (Basaglar KwikPen U-100 Insulin) 36 unit subcut DAILY diabetic managment 02/25/23 [History Last Taken Unknown] alprazolam 0.25 mg tablet 0.25 mg PO QHS anxiety #30 tabs 03/11/23 [Rx Last Taken Unknown] Allergy/AdvReac Type Severity Reaction Status Date / Time amoxicillin [Amoxicillin] Allergy Intermediate Rash Verified 03/18/23 20:58 hydrocodone Allergy Intermediate SWELLING Verified 03/18/23 20:58 gabapentin [From Neurontin] Allergy Shortness Verified 03/18/23 20:58 of breath levofloxacin [From Levaquin] Allergy Hives Verified 03/18/23 20:58 pseudoephedrine HCl Allergy Shortness Verified 03/18/23 20:58 [From Sudafed] of breath red dye Allergy Hives Verified 03/18/23 20:58 prednisone AdvReac Severe mean mood Verified 03/18/23 20:58 clonazepam [From Klonopin] AdvReac Depression Verified 03/18/23 20:58 codeine AdvReac HEADACHE Verified 03/18/23 20:58 Family History Brother Heart disease Mother Colon cancer Heart disease Surgical History History of cholecystectomy History of left heart catheterization (LHC) (~09/23/20) Stented coronary artery (12/28/18) Social History Smoking Status: Former smoker pack-years: 40 how long ago did patient quit smokin year ago alcohol intake: never substance use type: does not use caffeine: Yes Type: carbonated beverages and tea what type of physical activity do you participate in: none ROS ROS ED Constitutional Constitutional ED: Denies chills, fever(s), subjective, sweats or weight loss Eyes Eyes: Reports none; Denies blurry vision or change in vision ENT ENT ED: Denies ear pain, rhinorrhea or sore throat Cardiovascular Cardiovascular: Reports as per HPI and orthopnea; Denies paroxysmal nocturnal dyspnea Respiratory/Chest Respiratory/Chest: Reports dyspnea and orthopnea; Denies cough or paroxysmal nocturnal dyspnea Gastrointestinal Gastrointestinal: Denies abdominal pain, constipation, diarrhea, melena, nausea or vomiting Genitourinary Genitourinary ED: Denies dysuria, hematuria or urinary frequency Musculoskeletal Musculoskeletal: Denies arthralgias, back pain, myalgias or neck pain Integumentary Denies rash Neurologic Neurologic: Denies headache(s) or paresthesias Psychiatric Psychiatric: Denies anxiety or depression Endocrine Endocrinology: Denies cold intolerance or heat intolerance Hematologic/Lymphatic Hematologic/Lymphatic: Denies easy bleeding or easy bruising EXAM Physical Exam Const Vital Signs: 03/18/23 20:55 03/18/23 20:58 03/18/23 21:11 Temperature 98.1 F Temperature Source Temporal Pulse Rate 75 Respiratory Rate 10 L Respiratory Effort Blood Pressure 166/81 H Blood Pressure Mean 109 Pulse Ox 96 Oxygen Delivery Method Nasal Cannula Nasal Cannula Oxygen Flow Rate (L/min) 3 4 03/18/23 21:11 03/18/23 21:54 03/18/23 22:00 Temperature Temperature Source Pulse Rate Respiratory Rate 30 H 30 H Respiratory Effort Short of Breath Blood Pressure Blood Pressure Mean Pulse Ox Oxygen Delivery Method Oxygen Flow Rate (L/min) Positive well nourished, well developed and obese General Appearance ED: well developed, NAD and pallor Nutritional Appearance: obese HEENT Reports TM's clear and moist mucous membranes normocephalic and atraumatic Tympanic Membrane ED: Yes TM's clear Eyes PERRL and EOMs intact bilaterally General Eye ED: Negative for pale conjunctiva or scleral icterus Neck no lymphadenopathy, supple and no JVD Chest Wall palpation of chest normal Resp normal respiratory effort and clear to auscultation bilaterally Cardio regular rate, regular rhythm, S1 normal heart sound, S2 normal heart sound and no murmurs Peripheral Pulses: pulses 2+ throughout GI normal to inspection, nondistended, normoactive bowel sounds, soft to palpation, non-tender, non-distended and no masses; Negative for hepatosplenomegaly GI Narrative: There is no palpable pulsatile mass. There is no abdominal bruit. Back/Spine no CVA tenderness and no thoracic nor lumbar tenderness Extremity General Extremety ED: Yes edema; Negative for pulses abnormal General Extremity: edema; Negative for pulses abnormal Neuro oriented x3, CN's II-XII intact bilaterally and no sensory deficits noted Sensorium / Orientation: awake and alert Skin no rashes or lesions noted and no wounds General Skin Exam: pallor; Negative for jaundice MDM MDM MDM Narrative Medical decision making narrative: Differential diagnosis includes angina, non-ST elevation MN, noncardiac pain. Patient did not receive aspirin because she has a red dye allergy. She states she is compliant with her Plavix. Will obtain EKG to see if there are any evidence of acute ischemia. CBC to rule out anemia. Electrolyte panel and troponin with 2-hour troponin. Patient had a stress test performed December [address] Le as abnormal with evidence of reversible myocardial ischemia in the LAD distribution. Also noted a hyperdynamic left ventricle. Patient did experience pain with Lexiscan. Patient underwent cardiac catheterization by Dr. Ashton. Cardiac catheterization revealed angiographically normal left main. The left anterior descending revealed a previously placed stent with a stent in the first diagonal vessel with an ostium being about 70% stenosed. There was minimal luminal irregularity of the right coronary artery. Patient's first troponin and 8 and second is 9 with a delta of 1. Both troponins and delta are normal. Because of the abnormal stress test results and abnormal cardiac catheterization results Dr. Yun who is on-call for Dr. Wade Ferguson was paged. He stated since patient's troponins were both normal and delta is normal that patient is safe to go home. She is to call office for follow-up this coming week. History & Record Review Discussion w/independent historian: Patient Additional record(s) reviewed:: Prior inpatient record, Prior outpatient record, Prior ED visit and Prior labs Lab Data Attestation: I reviewed the patient's lab results. Lab results narrative: White count is slightly elevated with slight shift. There is no bandemia. Electrolyte panel reveals an elevated CO2. GFR is 53 with slight elevation of creatinine of 1.09. First troponin is normal, 8. Labs: Laboratory Results - last 24 hr 03/18/23 03/18/23 03/19/23 21:47 21:53 00:15 WBC 13.7 H RBC 4.30 Hgb 12.6 Hct 38.7 MCV 90.0 MCH 29.3 MCHC 32.6 RDW Std Deviation 39.2 RDW Coeff of [place] 12.0 Plt Count 301 MPV 11.0 Immature Gran % (Auto) 0.700 Neut % (Auto) 79.7 H Lymph % (Auto) 11.1 L [place] % (Auto) 6.5 Eos % (Auto) 1.3 Baso % (Auto) 0.7 Absolute Neuts (auto) 11.0 H Absolute Lymphs (auto) 1.53 Nucleated RBC % 0 Sodium 132 L Potassium 4.1 Chloride 94 L Carbon Dioxide 33.0 H Anion Gap 5 BUN 18 Creatinine 1.09 H Estim Creat Clear Calc 37.44 Est GFR (MDRD) Af Amer 64 Est GFR (MDRD) Non-Af 53 L BUN/Creatinine Ratio 16.5 Glucose 125 H Calcium 10.3 H Troponin I High Sens 8 9 POC Glucose 131 H Radiography Chest X-Ray - ED: 1 View and Read by ED Physician (Portable single view chest x-ray reveals no acute pathology. Cardiac silhouette size unremarkable. Lung parenchyma is unremarkable. There is slight rotation of the film. Osseous structures appear normal.) Diagnostic Testing: Clinical Impression(s) from Imaging Studies Chest X-Ray 03/18/23 21:33 IMPRESSION: No radiographic evidence of acute cardiopulmonary disease. Electronically Signed: Vaughn Santizo MD at 21:47 EDT , Discharge Plan Triage Chief Complaint: Chest Pain ED Provider: Pasha Thornton Dx/Rx/DC Orders Clinical Impression: Angina at rest, Generalized anxiety disorder, Type 2 diabetes mellitus, HLD (hyperlipidemia) Instructions: ED Angina, Stable Prescriptions: No Action (DME) Handicap Placard See Rx Instructions .ROUTE .MEDSUPPLY Qty: 1 0RF Rx Instructions: As directed, length of time 3 years citalopram 40 mg tablet 40 mg PO QHS Qty: 90 3RF (DME) cane Device See Rx Instructions .Route Qty: 1 0RF Rx Instructions: As directed insulin glargine [Basaglar KwikPen U-100 Insulin] 100 unit/mL (3 mL) insulin pen 36 unit subcut DAILY Rx Instructions: daily at bedtime acetaminophen 500 MG tablet 500 mg PO QHS Rx Instructions: over the counter. no prescription required. isosorbide mononitrate 60 mg tablet extended release 24 hr 60 mg PO DAILY Qty: 90 3RF nitroglycerin 0.4 mg tablet, sublingual 0.4 mg SUBLINGUAL Q5-15M PRN (Reason: Pain) Qty: 30 0RF atorvastatin 80 mg tablet 80 mg PO QHS clopidogrel 75 mg tablet 75 mg PO DAILY pantoprazole 40 mg tablet,delayed release (DR/EC) 40 mg PO DAILY losartan 25 mg tablet 25 mg PO DAILY furosemide [Lasix] 20 mg tablet 20 mg PO DAILY insulin lispro [Humalog KwikPen Insulin] 100 unit/mL insulin pen 20 unit SC TID Rx Instructions: Hold if glucose less than 130 mg/dl metoprolol tartrate 25 mg tablet 12.5 mg PO BID Rx Instructions: (DME) [employer] Emily 2 [place] Misc See Rx Instructions .ROUTE .MEDSUPPLY Qty: 1 0RF Rx Instructions: As directed bisacodyl [Dulcolax (bisacodyl)] 5 mg tablet,delayed release (DR/EC) 5 mg PO QHS PRN (Reason: constipation) 30 Days Qty: 30 3RF (DME) pen needle, diabetic 32 gauge x 5/32 needle See Rx Instructions .ROUTE .MEDSUPPLY Qty: 50 0RF Rx Instructions: 4x/day (DME) blood-glucose meter [True Metrix Glucose Meter] Misc See Rx Instructions .Route Qty: 1 0RF Rx Instructions: As directed (DME) True Metrix Glucose Test Strip Strip See Rx Instructions .Route Qty: 100 7RF Rx Instructions: tid albuterol sulfate 90 mcg/actuation HFA aerosol inhaler 2 puff INHALATION Q6H PRN (Reason: shortness of breath or wheezing) Qty: 18 3RF ipratropium-albuterol 0.5 mg-3 mg(2.5 mg base)/3 mL solution for nebulization 3 ml INHALATION Q4H PRN PRN (Reason: SOB &/OR WHEEZING) Qty: 180 6RF risperidone 1 mg tablet 1 mg PO QHS Qty: 90 1RF (DME) FreeStyle Emily 2 Sensor Kit See Rx Instructions .ROUTE .MEDSUPPLY Qty: 2 3RF Rx Instructions: As directed alprazolam 0.25 mg tablet 0.25 mg PO QHS Qty: 30 0RF Primary Care Provider: Billy Madera Referrals: Wade Ferguson MD [Med Staff - Active Staff] - As soon as possible Billy Madera MD [Primary Care Provider] - Disposition Disposition: Home, Self Care
[2023-03-18 23:50] LABS: Reflex Troponin-HS? (from REC) Y
[2023-03-19 00:39] LABS: Troponin-I HS 9 pg/mL (3.0-54.0)
[2023-03-19 01:00] VITALS: BP 125/61; PULSE 66; RESP 21; O2SAT 97
== END 2023-03-19 02:11 | disposition home or self-care (01) ==
PROVIDERS: Emergency Provider Emergency Medicine; PCP Internal Medicine; Visit Provider Emergency Medicine
DX: I20.9 Angina pectoris, unspecified (principal); J44.9 Chronic obstructive pulmonary disease, unspecified; I11.0 Hypertensive heart disease with heart failure; I50.32 Chronic diastolic (congestive) heart failure; E11.9 Type 2 diabetes mellitus without complications; I25.10 Atherosclerotic heart disease of native coronary artery without angina pectoris; Z87.891 Personal history of nicotine dependence; F41.1 Generalized anxiety disorder; E78.00 Pure hypercholesterolemia, unspecified; E66.9 Obesity, unspecified; Z79.02 Long term (current) use of antithrombotics/antiplatelets
CPT/HCPCS: 71045; 80048; 82962; 84484; 85025; 93005; 99285; A4216

== ENCOUNTER 2023-04-16 18:28 | Emergency (ER) | payer MEDICARE, SELFPAY ==
[2021-11-03 12:08] VITALS: BMI 34.9
[2023-04-16 18:29] VITALS: BP 156/71; PULSE 77; RESP 22; TEMP 35.5; O2SAT 100
[2023-04-16 19:24] VITALS: BP 126/80; PULSE 72; RESP 33; O2SAT 98
[2023-04-16 19:27] VITALS: BMI 41.7
--- NOTE | 2023-04-16 19:58 | EKG12_ITS ---
Test Reason : SOB/CP Blood Pressure : / mmHG Vent. Rate : 076 BPM Atrial Rate : 076 BPM P-R Int : 150 ms QRS Dur : 078 ms QT Int : 372 ms P-R-T Axes : 000 183 138 degrees QTc Int : 418 ms Normal sinus rhythm Right superior axis deviation Abnormal ECG No previous ECGs available Confirmed by BANG MELVIN, ROSALIA ([id number]), editorial writer LEILA AGUILERA ([id number]) on 04/26/2023 6:55:51 AM Referred By: MADDIE Confirmed By:ROSALIA CUENCA MD
[2023-04-16 20:24] LABS: Mucous, Urine 0 SEEN /hpf (<or=2+); Red Blood Cells-Urine 0 SEEN /hpf (0-5); White Blood Cells 0 SEEN /hpf (0-5)
--- NOTE | 2023-04-16 20:25 | RAD_ITS ---
INDICATION: chest pain EXAMINATION/TECHNIQUE: X-RAY - XR Chest 2 Views COMPARISON: 09/01/2022 FINDINGS: LINES/DEVICES: None. LUNGS: No consolidation or vascular congestion. Stable blunting of the left costophrenic angle. MEDIASTINUM AND CARDIOVASCULAR STRUCTURES: Cardiac silhouette stable within normal limits. BONES AND SOFT TISSUES: No acute changes. RAD/Chest PA and Lateral IMPRESSION: Probable chronic blunting/pleural thickening left costophrenic angle. No acute consolidative process. Electronically Signed: Vaughn Santizo MD at 20:52 EDT ,
[2023-04-16 20:26] LABS: Absolute Lymphocyte Count 1.48 X10^3/uL (0.83-4.51); Absolute Neutrophil Count 8.3 X10^3/uL (2.0-7.7); Basophil# 0.08 X10^3/uL; Basophil% 0.7 % (0-1); Eosinophil# 0.24 X10^3/uL; Eosinophils% 2.2 % (0-5); Hematocrit 36.7 % (37-47); Hemoglobin 11.6 g/dL (12.0-15.0); Lymphocyte # 1.48 X10^3/ul (0.83-4.51); Lymphocyte % 13.6 % (19-41); Mean Corp Hgb Conc 31.6 g/dL (32-36); Mean Corpuscular Hgb 29.2 pg (27.0-32.0); Mean Corpuscular Volume 92.4 fL (81-99); Mean Platelet Vol. 10.5 fl (6.2-12.0); Monocyte# 0.71 X10^3/uL; Monocyte% 6.5 % (0-10); NRBC Flagged by Analyzer 0 % (0-5); Neutrophil # 8.31 X10^3/uL (2.7-7.7); Neutrophil % 76.4 % (47-70); Platelet Count 276 K/mm3 (150-450); RBC Distribution Width CV 11.9 % (11.6-14.6); RBC Distribution Width SD 40.9 fl (35.1-43.9); Red Blood Count 3.97 M/mm3 (4.2-5.4); White Blood Count 10.9 K/mm3 (4.4-11.0)
[2023-04-16 20:26] LABS: Color, Urine Yellow (Yellow); Glucose, Dipstick 1000 mg/dl (Normal); Ketone-Dipstick Negative (Negative); Leukocyte Esterase-Dipstick Negative /ul (Negative); Nitrite-Dipstick Negative (Negative); Occult Blood-Urine Negative /ul (Negative); Protein-Dipstick Negative (Negative); Urine Bilirubin Dipstick Negative (Negative); Urine Clarity Clear (Clear); Urine Urobilinogen Normal (Normal)
[2023-04-16 20:28] LABS: POSITIVE COUNT NO; POSITIVE DIFFERENTIAL NO; POSITIVE MORPHOLOGY NO
--- NOTE | 2023-04-16 20:36 | CT_ITS ---
INDICATION: abd pain, nausea EXAMINATION: CT ABDOMEN AND PELVIS WITH CONTRAST - CT Abdomen And Pelvis W/ Contrast Injection TECHNIQUE: Helically acquired images were obtained of the abdomen and pelvis following IV contrast. A radiation dose optimization technique was used for this scan. IV Contrast dosage and agent: 100 cc [id number] Oral contrast: None. COMPARISON: 01/09/2015 FINDINGS: LOWER CHEST: Lung bases are clear. No cardiomegaly or pericardial effusion. LIVER: Stable scattered hepatic cysts. No concerning focal mass. GALLBLADDER AND BILIARY TREE: Gallbladder absent. No intra- or extrahepatic biliary ductal dilation. PANCREAS: No focal cystic or solid mass. SPLEEN: Normal size without focal cystic or solid mass. ADRENAL GLANDS: No nodules. KIDNEYS AND URETERS: Normal renal size and position. No hydronephrosis. PERITONEUM: No ascites or free air. BOWEL: Normal appendix. No stomach or bowel distension. No focal inflammatory change. LYMPH NODES: No enlarged mesenteric or retroperitoneal lymph nodes. VESSELS: Aorta is non-dilated. URINARY BLADDER: Unremarkable. REPRODUCTIVE ORGANS: No pelvic masses. ABDOMINAL WALL: Fat-containing umbilical hernia. BONES: No acute or aggressive abnormality. CT/Abdomen/Pelvis W IV Cont ONLY IMPRESSION: No acute findings in the abdomen or pelvis. Electronically Signed: Vaughn Santizo MD at 22:24 EDT ,
[2023-04-16 20:43] LABS: BNP,B-Type NATRIURETIC PEPTIDE 42.3 pg/mL (0-100)
[2023-04-16 20:45] LABS: Bacteria 1+ /hpf (None Seen); Squamous Epithelial Cells - UA 10-25 SEEN /hpf (5-10)
[2023-04-16] MEDS: 0.9% Normal Saline (1000mL) 1,000 ML 150 ML IV (20:45)
[2023-04-16 20:48] LABS: AST(SGOT) 10 U/L (15-37); Alanine Aminotransfer ALT/SGPT 20 U/L (13-56); Albumin, Serum 3.5 g/dL (3.2-5.0); Alkaline Phosphatase 142 U/L (45-117); Anion Gap 6 (5-15); BUN 12 mg/dL (7-18); BUN/Creat Ratio 12.3 RATIO (10-20); Calcium,Total 9.4 mg/dL (8.5-10.1); Chloride 91 mmol/L (98-107); Creatinine, Serum 0.97 mg/dL (0.55-1.02); EST Glomerular Filtration Rate 60 mL/min (>60); Est Glom Filt Rate - Afr Amer 72 mL/min (>60); Estimated Creatinine Clearance 42.07 ml/min; Globulin 3.6 g/dL (2.2-4.2); Glucose 374 mg/dL (74-106); Lipase 23 U/L (13-75); Potassium 4.3 mmol/L (3.5-5.1); Protein, Total 7.1 g/dL (6.4-8.2); Sodium Level 130 mmol/L (136-145); Troponin-I HS (w/2H Reflex) 8 pg/mL (3.0-54.0)
[2023-04-16 21:00] VITALS: PULSE 76; O2SAT 98
[2023-04-16] MEDS: Ipratropium/Albuterol Sulfate 3 ML AMPUL.NEB INHALATION (21:44)
[2023-04-16 21:47] VITALS: PULSE 68; RESP 24
[2023-04-16 22:21] LABS: Reflex Troponin-HS? (from REC) Y
[2023-04-16 22:55] LABS: Troponin-I HS 9 pg/mL (3.0-54.0)
[2023-04-16 23:00] VITALS: PULSE 72; RESP 24; O2SAT 98
[2023-04-16 23:16] VITALS: PULSE 74; RESP 20
--- NOTE | 2023-04-16 23:18 | EX.ED.DYSGE1 ---
HPI History of Present Illness Chief Complaint: Shortness of Breath Informant: patient Narrative Narrative: Patient is a 72-year-old female with history of type 2 diabetes mellitus, chronic respiratory failure on 4 L nasal cannula, GERD, anxiety, hypertension, CHF, hyperlipidemia presenting with multiple complaints. Patient states for the past week she been having headache, stomachache, left chest discomfort does not go into her left arm, increased phlegm production, epigastric abdominal discomfort, indigestion and nausea. She also notes that she has been feeling warm at night and cold during the day. She denies any fever. Denies any swelling of her legs. Has been feeling dizzy for the past week as well. Notes that she did have some diarrhea about 2 weeks ago that since resolved. She had normal bowel movement this morning. She said some decreased gas production. She initially went to urgent care and had a COVID test which was negative. Given her symptoms including chest pain they recommend she come to the ER for further evaluation. Patient's main complaint seems to be her epigastric discomfort and indigestion. No increased O2 requirements. [facility] Medical History Anemia Anxiety and depression Asthma with COPD Atherosclerotic heart disease of [place] coronary artery without angina pectoris Back pain Chest pain Chronic back pain Chronic respiratory failure COPD (chronic obstructive pulmonary disease) Diastolic CHF Former smoker Hepatitis HLD (hyperlipidemia) Hypertension Morbid obesity Obesity MARK treated with BiPAP Psoriasis Smoking greater than 40 pack years Thyroid nodule Type 2 diabetes mellitus Home Medications Handicap [place] #1 ea 12/12/20 [Rx Last Taken Unknown] acetaminophen 500 mg tablet 500 mg PO QHS pain 10/21/21 [History Last Taken Unknown] bisacodyl 5 mg tablet,delayed release (Dulcolax (bisacodyl)) 5 mg PO QHS PRN constipation 30 days #30 tabs 11/13/21 [Rx Last Taken Unknown] pen needle, diabetic 32 gauge x #50 ea 02/11/22 [Rx Last Taken Unknown] blood sugar diagnostic (True Metrix Glucose Test Strip) #100 ea 09/11/22 [Rx Last Taken Unknown] blood-glucose meter (True Metrix Glucose Meter) #1 ea 09/11/22 [Rx Last Taken Unknown] albuterol sulfate 90 mcg/actuation aerosol inhaler 2 puff inhalation Q6H PRN shortness of breath or wheezing #18 grams 11/06/22 [Rx Last Taken Unknown] ipratropium 0.5 mg-albuterol 3 mg (2.5 mg base)/3 mL nebulization soln 3 ml inhalation Q4H PRN PRN SOB &/OR WHEEZING #180 mL 11/10/22 [Rx Last Taken Unknown] cane #1 ea 11/16/22 [Rx Last Taken Unknown] citalopram 40 mg tablet 40 mg PO QHS depression #90 tabs 11/16/22 [Rx Last Taken Unknown] risperidone 1 mg tablet 1 mg PO QHS anxiety #90 tabs 12/07/22 [Rx Last Taken Unknown] isosorbide mononitrate 60 mg tablet,extended release 24 hr 60 mg PO DAILY BP #90 tabs 12/26/22 [Rx Last Taken Unknown] nitroglycerin 0.4 mg sublingual tablet 0.4 mg sublingual Q5-15M PRN Pain #30 tabs 12/26/22 [Rx Last Taken Unknown] flash glucose sensor (ACell Emily 2 Sensor kit) #2 ea 01/06/23 [Rx Last Taken Unknown] atorvastatin 80 mg tablet 80 mg PO QHS cholesterol 01/26/23 [History Last Taken Unknown] clopidogrel 75 mg tablet 75 mg PO DAILY blood thinner 01/26/23 [History Last Taken Unknown] furosemide 20 mg tablet (Lasix) 20 mg PO DAILY diuretic 01/26/23 [History Last Taken Unknown] insulin lispro 100 unit/mL subcutaneous pen (Humalog KwikPen (U-100) Insulin) 20 unit subcut TID diabetes 01/26/23 [History Last Taken Unknown] losartan 25 mg tablet 25 mg PO DAILY blood pressure 01/26/23 [History Last Taken Unknown] metoprolol tartrate 25 mg tablet 12.5 mg PO BID blood pressure 01/26/23 [History Last Taken Unknown] pantoprazole 40 mg tablet,delayed release 40 mg PO DAILY stomach 01/26/23 [History Last Taken Unknown] insulin glargine 100 unit/mL (3 mL) subcutaneous pen (Basaglar KwikPen U-100 Insulin) 36 unit subcut DAILY diabetic managment 02/25/23 [History Last Taken Unknown] flash glucose scanning reader (ACell Emily 2 [place]) #1 ea 08/15/23 [Rx Last Taken Unknown] alprazolam 0.25 mg tablet 0.25 mg PO QHS anxiety #30 tabs 04/13/23 [Rx Last Taken Unknown] ondansetron HCl 4 mg tablet 4 mg PO Q6H PRN nausea and vomiting #14 tabs 04/16/23 [Rx Last Taken Unknown] sucralfate 1 gram tablet (Carafate) 1 g PO TID PRN acid reflux #20 tabs 04/16/23 [Rx Last Taken Unknown] Allergy/AdvReac Type Severity Reaction Status Date / Time amoxicillin [Amoxicillin] Allergy Intermediate Rash Verified 04/16/23 18:29 hydrocodone Allergy Intermediate SWELLING Verified 04/16/23 18:29 gabapentin [From Neurontin] Allergy Shortness Verified 04/16/23 18:29 of breath levofloxacin [From Levaquin] Allergy Hives Verified 04/16/23 18:29 pseudoephedrine HCl Allergy Shortness Verified 04/16/23 18:29 [From Sudafed] of breath red dye Allergy Hives Verified 04/16/23 18:29 prednisone AdvReac Severe mean mood Verified 04/16/23 18:29 clonazepam [From Klonopin] AdvReac Depression Verified 04/16/23 18:29 codeine AdvReac HEADACHE Verified 04/16/23 18:29 Family History Brother Heart disease Mother Colon cancer Heart disease Surgical History History of cholecystectomy History of left heart catheterization (LHC) (~09/23/20) Stented coronary artery (12/28/18) Social History Smoking Status: Former smoker pack-years: 40 how long ago did patient quit smokin year ago alcohol intake: never substance use type: does not use caffeine: Yes Type: carbonated beverages and tea what type of physical activity do you participate in: none ROS ROS ED Constitutional Constitutional ED: Reports chills; Denies fever(s) Eyes Eyes: Denies change in vision ENT ENT ED: Denies rhinorrhea or sore throat Cardiovascular Cardiovascular: Reports chest pain and racing heartbeat Respiratory/Chest Respiratory/Chest: Reports cough and sputum; Denies dyspnea Gastrointestinal Gastrointestinal: Reports abdominal pain and nausea; Denies constipation, diarrhea or vomiting Genitourinary Genitourinary ED: Denies dysuria or hematuria Musculoskeletal Musculoskeletal: Denies arthralgias or myalgias Integumentary Denies rash Neurologic Neurologic: Reports headache(s) Endocrine Endocrinology: Reports cold intolerance Hematologic/Lymphatic Hematologic/Lymphatic: Denies easy bleeding or easy bruising EXAM Physical Exam Const Vital Signs: 04/16/23 18:29 04/16/23 19:24 04/16/23 19:25 Temperature 96 F L Temperature Source Temporal Pulse Rate 77 72 Respiratory Rate 22 H 33 H Respiratory Effort Short of Breath Respiratory Depth Shallow Respiratory Pattern Blood Pressure 156/71 H 126/80 H Blood Pressure Mean 99 95 Pulse Ox 100 98 Oxygen Delivery Method Nasal Cannula Nasal Cannula Nasal Cannula Oxygen Flow Rate (L/min) 4 4 4 04/16/23 21:47 Temperature Temperature Source Pulse Rate 68 Respiratory Rate 24 H Respiratory Effort Respiratory Depth Respiratory Pattern Tachypnea Blood Pressure Blood Pressure Mean Pulse Ox Oxygen Delivery Method Oxygen Flow Rate (L/min) Positive well nourished and well developed General Appearance ED: well developed and NAD Eyes PERRL and EOMs intact bilaterally Neck supple and no JVD General: Negative for tenderness Chest Wall inspection of chest normal and palpation of chest normal Resp normal respiratory effort and clear to auscultation bilaterally Auscultation: Negative for wheezes Cardio regular rate, regular rhythm and no murmurs GI non-distended Auscultation: normoactive bowel sounds Palpation: soft and tender epigastric and RLQ; Negative for guarding Back/Spine no CVA tenderness Extremity normal to inspection General Extremety ED: Negative for edema General Extremity: Negative for edema Neuro oriented x3 Sensorium / Orientation: alert Motor Exam: Negative for general weakness Psych mental status grossly normal Skin no rashes or lesions noted and no wounds MDM MDM MDM Narrative Medical decision making narrative: Patient is a 72-year-old female presenting with multiple complaints. She had a previous negative [facility] test [facility] earlier today. I do not think this requires repeating. Differential is broad and includes ACS, pneumonia, GERD, pancreatitis, small bowel obstruction, dehydration and electrolyte abnormality. Lab work large unremarkable including a CBC, CMP, lipase, urinalysis and delta high-sensitivity troponin. Urinalysis consistent with contamination but not a UTI. She is hyperglycemic but does have a history of diabetes. She does report that her blood sugar has been running higher lately. She has a stable hyponatremia with a sodium of 130. I do not think this is the culprit for her symptoms. She has a normal anion gap and I do not suspect DKA or HHNK. CT abdomen pelvis obtained which is patient is an abdominal surgical history (cholecystectomy). This is negative for any acute process. Chest x-ray reviewed by myself as well as radiology shows chronic changes but no acute consolidation. Patient is not having increased O2 requirements. She ambulates decently to and from the bathroom while in the emergency room. On my initial evaluation she states she is not really having any symptoms at this time and declines any medication. While in the ER she does request breathing treatment is given a DuoNeb. She is put on some gentle IV fluids at 150 an hour. On repeat evaluation she states since laying on the CT table her epigastric discomfort is worse. She given a GI cocktail. Work-up is not consistent with ACS given her nonischemic EKG I am normal high-sensitivity troponins. I do not think she requires admission for further cardiac evaluation at this time. Patient is her symptoms were going on for a week and her work-up is so normal at this time. Possible she has a viral syndrome could be causing it. Discussed that hopefully will be self-limited and that is the case. She will be started on Zofran and sucralfate for further symptom control. Given return precautions. She verbalizes agreement understand this plan. Lab Data Attestation: I reviewed the patient's lab results. Labs: Laboratory Results - last 24 hr 04/16/23 04/16/23 04/16/23 20:00 20:15 22:29 WBC 10.9 RBC 3.97 L Hgb 11.6 L Hct 36.7 L MCV 92.4 MCH 29.2 MCHC 31.6 L RDW Std Deviation 40.9 RDW Coeff of [place] 11.9 Plt Count 276 MPV 10.5 Immature Gran % (Auto) 0.600 Neut % (Auto) 76.4 H Lymph % (Auto) 13.6 L [place] % (Auto) 6.5 Eos % (Auto) 2.2 Baso % (Auto) 0.7 Absolute Neuts (auto) 8.3 H Absolute Lymphs (auto) 1.48 Nucleated RBC % 0 Sodium 130 L Potassium 4.3 Chloride 91 L Carbon Dioxide 33.0 H Anion Gap 6 BUN 12 Creatinine 0.97 Estim Creat Clear Calc 42.07 Est GFR (MDRD) Af Amer 72 Est GFR (MDRD) Non-Af 60 BUN/Creatinine Ratio 12.3 Glucose 374 H Calcium 9.4 Total Bilirubin 0.30 AST 10 L ALT 20 Alkaline Phosphatase 142 H Troponin I High Sens 8 9 B-Natriuretic Peptide 42.3 Total Protein 7.1 Albumin 3.5 Globulin 3.6 Albumin/Globulin Ratio 1.0 Lipase 23 Urine Color Yellow Urine Clarity Clear Urine pH 6.0 Ur Specific [place] 1.010 Urine Protein Negative Urine Glucose (UA) 1000 H Urine Ketones Negative Urine Occult Blood Negative Urine Nitrite Negative Urine Bilirubin Negative Urine Urobilinogen Normal Ur Leukocyte Esterase Negative Urine RBC 0 SEEN Urine WBC 0 SEEN Ur Squamous Epith Cells 10-25 SEEN Urine Bacteria 1+ Urine Mucus 0 SEEN Radiography Chest X-Ray - ED: 2 View, Read by ED Physician, Read by Radiologist, No Acute Disease and Chronic Changes Diagnostic Testing: Clinical Impression(s) from Imaging Studies Chest X-Ray 04/16/23 20:25 IMPRESSION: Probable chronic blunting/pleural thickening left costophrenic angle. No acute consolidative process. Electronically Signed: Vaughn Santizo MD at 20:52 EDT Reading Location ID and State: [facility] / [place] Tel , Service support , Abdomen/Pelvis CT 04/16/23 20:36 IMPRESSION: No acute findings in the abdomen or pelvis. Electronically Signed: Vaughn Santizo MD at 22:24 EDT , Rhythm Strip Rhythm Strip: Sinus Rhythm Rate: 76 Ectopy: None EKG Initial EKG: Attestation: I personally reviewed and interpreted this EKG as follows: Interpretation: Sinus Rhythm Comments: Normal sinus rhythm rate of 76 bpm Rightward superior axis deviation Normal intervals Normal ST segments Compared to prior EKG patient now has a rightward axis, question limb lead reversal as there is also amplitude reversal change in all limb leads Discharge Plan Triage Chief Complaint: Shortness of Breath Other Complaint: Abd Pain Diarrhea Dizziness ED Provider: Sera Aguilar Dx/Rx/DC Orders Clinical Impression: Headache, Abdominal pain, epigastric, Chest discomfort Instructions: ED Abdominal Pain Unkn Cause Fem, ED Dizziness, Uncertain Cause, ED Viral Syndrome (Adult) Prescriptions: New sucralfate [Carafate] 1 gram tablet 1 g PO TID PRN (Reason: acid reflux) Qty: 20 0RF ondansetron HCl 4 mg tablet 4 mg PO Q6H PRN (Reason: nausea and vomiting) Qty: 14 0RF No Action (DME) Handicap Placard See Rx Instructions .ROUTE .MEDSUPPLY Qty: 1 0RF Rx Instructions: As directed, length of time 3 years citalopram 40 mg tablet 40 mg PO QHS Qty: 90 3RF (DME) cane Device See Rx Instructions .Route Qty: 1 0RF Rx Instructions: As directed insulin glargine [Basaglar KwikPen U-100 Insulin] 100 unit/mL (3 mL) insulin pen 36 unit subcut DAILY Rx Instructions: daily at bedtime acetaminophen 500 MG tablet 500 mg PO QHS Rx Instructions: over the counter. no prescription required. isosorbide mononitrate 60 mg tablet extended release 24 hr 60 mg PO DAILY Qty: 90 3RF nitroglycerin 0.4 mg tablet, sublingual 0.4 mg SUBLINGUAL Q5-15M PRN (Reason: Pain) Qty: 30 0RF atorvastatin 80 mg tablet 80 mg PO QHS clopidogrel 75 mg tablet 75 mg PO DAILY pantoprazole 40 mg tablet,delayed release (DR/EC) 40 mg PO DAILY losartan 25 mg tablet 25 mg PO DAILY furosemide [Lasix] 20 mg tablet 20 mg PO DAILY insulin lispro [Humalog KwikPen Insulin] 100 unit/mL insulin pen 20 unit SC TID Rx Instructions: Hold if glucose less than 130 mg/dl metoprolol tartrate 25 mg tablet 12.5 mg PO BID Rx Instructions: bisacodyl [Dulcolax (bisacodyl)] 5 mg tablet,delayed release (DR/EC) 5 mg PO QHS PRN (Reason: constipation) 30 Days Qty: 30 3RF (DME) pen needle, diabetic 32 gauge x 5/32 needle See Rx Instructions .ROUTE .MEDSUPPLY Qty: 50 0RF Rx Instructions: 4x/day (DME) blood-glucose meter [True Metrix Glucose Meter] [facility] See Rx Instructions .Route Qty: 1 0RF Rx Instructions: As directed (DME) True Metrix Glucose Test Strip Strip See Rx Instructions .Route Qty: 100 7RF Rx Instructions: tid albuterol sulfate 90 mcg/actuation HFA aerosol inhaler 2 puff INHALATION Q6H PRN (Reason: shortness of breath or wheezing) Qty: 18 3RF ipratropium-albuterol 0.5 mg-3 mg(2.5 mg base)/3 mL solution for nebulization 3 ml INHALATION Q4H PRN PRN (Reason: SOB &/OR WHEEZING) Qty: 180 6RF risperidone 1 mg tablet 1 mg PO QHS Qty: 90 1RF (DME) FreeStyle Emily 2 Sensor Kit See Rx Instructions .ROUTE .MEDSUPPLY Qty: 2 3RF Rx Instructions: As directed (DME) FreeStyle Emily 2 [place] [facility] See Rx Instructions .ROUTE .MEDSUPPLY Qty: 1 0RF Rx Instructions: As directed alprazolam 0.25 mg tablet 0.25 mg PO QHS Qty: 30 0RF Primary Care Provider: Billy Madera Referrals: Billy Madera MD [Primary Care Provider] - Activity Restrictions/Additional Instructions: Your work-up showed your blood sugar was mildly elevated but otherwise was largely normal. The exact cause your symptoms is not clear. Is possible some type of viral syndrome. Make sure you are drinking enough water and watching her sugar intake. Please follow-up with your primary care doctor but return to the ER if you have a worsening of your symptoms or have further concerns.
[2023-04-16] MEDS: Mag Hydrox/Al Hydrox/Simeth 30 ML UDC PO (23:34)
== END 2023-04-17 06:39 | disposition home or self-care (01) ==
PROVIDERS: Emergency Provider Emergency Medicine; PCP Internal Medicine; Visit Provider Emergency Medicine
DX: R51.9 Headache, unspecified (principal); J44.9 Chronic obstructive pulmonary disease, unspecified; I11.0 Hypertensive heart disease with heart failure; I50.32 Chronic diastolic (congestive) heart failure; E11.65 Type 2 diabetes mellitus with hyperglycemia; J96.10 Chronic respiratory failure, unspecified whether with hypoxia or hypercapnia; Z79.4 Long term (current) use of insulin; R10.13 Epigastric pain; R07.89 Other chest pain; I25.10 Atherosclerotic heart disease of native coronary artery without angina pectoris; E78.5 Hyperlipidemia, unspecified; Z95.5 Presence of coronary angioplasty implant and graft; Z90.49 Acquired absence of other specified parts of digestive tract; Z99.81 Dependence on supplemental oxygen; Z79.02 Long term (current) use of antithrombotics/antiplatelets; Z79.899 Other long term (current) drug therapy; Z87.891 Personal history of nicotine dependence
CPT/HCPCS: 71046; 74177; 80053; 81001; 83690; 83880; 84484; 85025; 93005; 94640; 96360; 96361; 99285; J7030; Q9967; A4216

== ENCOUNTER 2023-05-25 19:53 | Emergency (ER) | payer MEDICARE, MEDICAID, SELFPAY ==
[2021-11-03 12:08] VITALS: BMI 34.9
[2023-05-25 19:55] VITALS: BP 189/60; PULSE 70; RESP 22; TEMP 36.7; O2SAT 98; BMI 43.0
--- NOTE | 2023-05-25 20:21 | EKG12_ITS ---
Test Reason : GEN. ILLNESS Blood Pressure : / mmHG Vent. Rate : 063 BPM Atrial Rate : 063 BPM P-R Int : 176 ms QRS Dur : 080 ms QT Int : 416 ms P-R-T Axes : 042 022 042 degrees QTc Int : 425 ms Normal sinus rhythm Normal ECG Confirmed by BANG MELVIN, ROSALIA ([id number]), advertising editor LEILA AGUILERA ([id number]) on 05/27/2023 2:06:34 PM Referred By: LAKHWINDER Confirmed By:ROSALIA CUENCA MD
--- NOTE | 2023-05-25 20:22 | EDS_ITS ---
HPI History of Present Illness Chief Complaint: General Illness Detail of Chief Complaint: Cough, body aches, shortness of breath with exertion Informant: patient Onset/Context/Timing Onset: Yesterday Narrative Narrative: Patient presents stating that she feels like she has the flu. She states symptoms started last evening. She complains of cough with yellow-colored sputum production, epigastric pain, bandlike sensation around her upper abdomen, and body aches. She states she felt like she had a fever but did not have a thermometer at home. She did take ibuprofen earlier today. She is on 4 to 6 L of oxygen at baseline. Patient states she does have increased shortness of breath with exertion. [facility] Medical History Anemia Anxiety and depression Asthma with COPD Atherosclerotic heart disease of [place] coronary artery without angina pectoris Back pain Chest pain Chronic back pain Chronic respiratory failure COPD (chronic obstructive pulmonary disease) Diastolic CHF Former smoker Hepatitis HLD (hyperlipidemia) Hypertension Morbid obesity Obesity MARK treated with BiPAP Psoriasis Smoking greater than 40 pack years Thyroid nodule Type 2 diabetes mellitus Home Medications Handicap Placard #1 ea 12/12/20 [Rx Last Taken Unknown] acetaminophen 500 mg tablet 500 mg PO QHS pain 10/21/21 [History Last Taken Unknown] bisacodyl 5 mg tablet,delayed release (Dulcolax (bisacodyl)) 5 mg PO QHS PRN constipation 30 days #30 tabs 11/13/21 [Rx Last Taken Unknown] pen needle, diabetic 32 gauge x #50 ea 02/11/22 [Rx Last Taken Unknown] blood sugar diagnostic (True Metrix Glucose Test Strip) #100 ea 09/11/22 [Rx Last Taken Unknown] blood-glucose meter (True Metrix Glucose Meter) #1 ea 09/11/22 [Rx Last Taken Unknown] albuterol sulfate 90 mcg/actuation aerosol inhaler 2 puff inhalation Q6H PRN shortness of breath or wheezing #18 grams 11/06/22 [Rx Last Taken Unknown] ipratropium 0.5 mg-albuterol 3 mg (2.5 mg base)/3 mL nebulization soln 3 ml inhalation Q4H PRN PRN SOB &/OR WHEEZING #180 mL 11/10/22 [Rx Last Taken Unknown] cane #1 ea 11/16/22 [Rx Last Taken Unknown] citalopram 40 mg tablet 40 mg PO QHS depression #90 tabs 11/16/22 [Rx Last Taken Unknown] risperidone 1 mg tablet 1 mg PO QHS anxiety #90 tabs 12/07/22 [Rx Last Taken Unknown] isosorbide mononitrate 60 mg tablet,extended release 24 hr 60 mg PO DAILY BP #90 tabs 12/26/22 [Rx Last Taken Unknown] nitroglycerin 0.4 mg sublingual tablet 0.4 mg sublingual Q5-15M PRN Pain #30 tabs 12/26/22 [Rx Last Taken Unknown] flash glucose sensor ([employer] Emily 2 Sensor kit) #2 ea 01/06/23 [Rx Last Taken Unknown] atorvastatin 80 mg tablet 80 mg PO QHS cholesterol 01/26/23 [History Last Taken Unknown] clopidogrel 75 mg tablet 75 mg PO DAILY blood thinner 01/26/23 [History Last Taken Unknown] furosemide 20 mg tablet (Lasix) 20 mg PO DAILY diuretic 01/26/23 [History Last Taken Unknown] losartan 25 mg tablet 25 mg PO DAILY blood pressure 01/26/23 [History Last Taken Unknown] metoprolol tartrate 25 mg tablet 12.5 mg PO BID blood pressure 01/26/23 [History Last Taken Unknown] flash glucose scanning reader ([employer] Emily 2 [place]) #1 ea 03/23/23 [Rx Last Taken Unknown] ondansetron HCl 4 mg tablet 4 mg PO Q6H PRN nausea and vomiting #14 tabs 04/16/23 [Rx Last Taken Unknown] sucralfate 1 gram tablet (Carafate) 1 g PO TID PRN acid reflux #20 tabs 04/16/23 [Rx Last Taken Unknown] insulin glargine 100 unit/mL (3 mL) subcutaneous pen (Basaglar KwikPen U-100 Insulin) 36 unit (0.36 mL) subcut DAILY diabetic managment #42 mL 05/06/23 [Rx Last Taken Unknown] insulin lispro 100 unit/mL subcutaneous pen (Humalog KwikPen (U-100) Insulin) 20 unit (0.2 mL) subcut TID diabetes #72 mL 05/06/23 [Rx Last Taken Unknown] alprazolam 0.25 mg tablet 0.25 mg PO QHS anxiety #30 tabs 05/12/23 [Rx Last Taken Unknown] pantoprazole 40 mg tablet,delayed release 40 mg PO BID stomach #180 tabs 05/20/23 [Rx Last Taken Unknown] azithromycin 250 mg tablet (Zithromax) 250 mg PO DAILY 4 days #4 tabs 05/25/23 [Rx Last Taken Unknown] potassium chloride 20 mEq tablet,extended release 20 meq PO DAILY #3 tabs 05/25/23 [Rx Last Taken Unknown] Allergy/AdvReac Type Severity Reaction Status Date / Time amoxicillin [Amoxicillin] Allergy Intermediate Rash Verified 05/20/23 16:31 hydrocodone Allergy Intermediate SWELLING Verified 05/20/23 16:31 gabapentin [From Neurontin] Allergy Shortness Verified 05/20/23 16:31 of breath levofloxacin [From Levaquin] Allergy Hives Verified 05/20/23 16:31 pseudoephedrine HCl Allergy Shortness Verified 05/20/23 16:31 [From Sudafed] of breath red dye Allergy Hives Verified 05/20/23 16:31 prednisone AdvReac Severe mean mood Verified 05/20/23 16:31 clonazepam [From Klonopin] AdvReac Depression Verified 05/20/23 16:31 codeine AdvReac HEADACHE Verified 05/20/23 16:31 Family History Brother Heart disease Mother Colon cancer Heart disease Surgical History History of cholecystectomy History of left heart catheterization (LHC) (~09/23/20) Stented coronary artery (12/28/18) Social History Smoking Status: Former smoker pack-years: 40 how long ago did patient quit smokin year ago alcohol intake: never substance use type: does not use caffeine: Yes Type: carbonated beverages and tea what type of physical activity do you participate in: none ROS ROS ED Constitutional Constitutional ED: Reports chills Eyes Eyes: Denies discharge from eye(s) ENT ENT ED: Denies discharge from eye(s), rhinorrhea or sore throat Cardiovascular Cardiovascular: Denies chest pain or palpitations Respiratory/Chest Respiratory/Chest: Reports cough and dyspnea Gastrointestinal Gastrointestinal: Reports abdominal pain and nausea; Denies diarrhea or vomiting Genitourinary Genitourinary ED: Denies difficulty urinating or dysuria Musculoskeletal Musculoskeletal: Reports myalgias; Denies back pain or extremity pain Integumentary Denies Abrasions or rash Neurologic Neurologic: Reports headache(s); Denies weakness Psychiatric Psychiatric: Denies anxiety or depression Allergic/Immunologic Allergic/Immunologic ED: Denies lip swelling or urticaria EXAM Physical Exam Const Vital Signs: 05/25/23 19:55 05/25/23 19:59 Temperature 98.1 F Temperature Source Oral Pulse Rate 70 Respiratory Rate 22 H Respiratory Effort Short of Breath Respiratory Pattern Tachypnea Blood Pressure 189/60 H Blood Pressure Mean 103 Pulse Ox 98 Oxygen Delivery Method Nasal Cannula Oxygen Flow Rate (L/min) 4 Positive well nourished and well developed General Appearance ED: well developed HEENT Reports normocephalic and head/scalp atraumatic Eyes PERRL and EOMs intact bilaterally Neck supple Chest Wall inspection of chest normal and palpation of chest normal Resp normal respiratory effort Resp Narrative: Diminished breath sounds bilateral bases. Cardio regular rate and regular rhythm GI GI Narrative: Abdomen soft with mild epigastric tenderness. Hypoactive bowel sounds. Palpation: soft Extremity normal to inspection Neuro oriented x3 and no sensory deficits noted Sensorium / Orientation: alert Motor Exam: strength 5/5 throughout Psych mental status grossly normal Skin no rashes or lesions noted MDM MDM MDM Narrative Medical decision making narrative: Patient placed on secured entrance monitor. EKG obtained to evaluate for cardiac arrhythmia/ischemia. Chest x-ray obtained to evaluate for acute lung pathology, cardiac size, or mediastinal abnormality. Labwork obtained to evaluate for leukocytosis, anemia, and electrolyte derangement. Swab for COVID and influenza obtained. History & Record Review Discussion w/independent historian: Patient Additional record(s) reviewed:: Prior ED visit and Prior labs Lab Data Attestation: I reviewed the patient's lab results. Labs: Laboratory Results - last 24 hr 05/25/23 20:20 WBC 8.8 RBC 3.79 L Hgb 11.0 L Hct 34.9 L MCV 92.1 MCH 29.0 MCHC 31.5 L RDW Std Deviation 40.6 RDW Coeff of [place] 11.9 Plt Count 277 MPV 10.7 Immature Gran % (Auto) 0.600 Neut % (Auto) 73.1 H Lymph % (Auto) 16.3 L [place] % (Auto) 6.1 Eos % (Auto) 3.1 Baso % (Auto) 0.8 Absolute Neuts (auto) 6.4 Absolute Lymphs (auto) 1.44 Nucleated RBC % 0 Sodium 134 L Potassium 3.3 L Chloride 96 L Carbon Dioxide 33.0 H Anion Gap 5 BUN 7 Creatinine 0.70 Estim Creat Clear Calc 40.81 Est GFR (MDRD) Af Amer 106 Est GFR (MDRD) Non-Af 88 BUN/Creatinine Ratio 10.0 Glucose 136 H Calcium 8.7 Total Bilirubin 0.20 Direct Bilirubin 0.07 AST 13 L ALT 21 Alkaline Phosphatase 150 H Troponin I High Sens 11 Total Protein 6.8 Albumin 3.2 Globulin 3.6 Lipase 16 Radiography Diagnostic Testing: Clinical Impression(s) from Imaging Studies Chest X-Ray 05/25/23 20:33 IMPRESSION: No acute pulmonary finding. Chronic blunting at the left costophrenic angle. Electronically Signed: Tod Brito MD at 20:44 EDT , EKG Initial EKG: Attestation: I personally reviewed and interpreted this EKG as follows: Interpretation: Sinus Rhythm (Sinus at 63 with no acute ischemia.) Treatment and Re-Evaluation :: CBC was normal white count 8.8 with a hemoglobin of 11. 73% neutrophils noted. Chemistry studies significant for low potassium at 3.3. Glucose is 136. LFTs are unremarkable other than an alk phos of 150. Lipase is normal at 16. Troponin is normal at 11. Portable chest x-ray per my interpretation was chronic changes with no focal infiltrate. EKG is sinus rhythm with no acute ischemia. Swab for COVID and influenza is negative. On repeat evaluation patient resting comfortably. On her normal 4 L nasal cannula she is satting in the high 90s. Given her COPD history and yellow sputum production I will cover her with Zithromax for a COPD exacerbation. I discussed with her I think she likely has another viral syndrome that is triggering her COPD. Return instructions are given. Discharge Plan Triage Chief Complaint: General Illness ED Provider: Mariah Miller Dx/Rx/DC Orders Clinical Impression: Viral syndrome, COPD exacerbation, Hypokalemia Instructions: ED COPD Flare, ED Hypokalemia, ED Viral Syndrome (Adult) Prescriptions: New azithromycin [Zithromax] 250 mg tablet 250 mg PO DAILY 4 Days Qty: 4 0RF Rx Instructions: start on day 2 of therapy potassium chloride 20 mEq tablet extended release 20 meq PO DAILY Qty: 3 0RF No Action (DME) Handicap Placard See Rx Instructions .ROUTE .MEDSUPPLY Qty: 1 0RF Rx Instructions: As directed, length of time 3 years citalopram 40 mg tablet 40 mg PO QHS Qty: 90 3RF (DME) cane Device See Rx Instructions .Route Qty: 1 0RF Rx Instructions: As directed pantoprazole 40 mg tablet,delayed release (DR/EC) 40 mg PO BID Qty: 180 2RF acetaminophen 500 MG tablet 500 mg PO QHS Rx Instructions: over the counter. no prescription required. isosorbide mononitrate 60 mg tablet extended release 24 hr 60 mg PO DAILY Qty: 90 3RF nitroglycerin 0.4 mg tablet, sublingual 0.4 mg SUBLINGUAL Q5-15M PRN (Reason: Pain) Qty: 30 0RF atorvastatin 80 mg tablet 80 mg PO QHS clopidogrel 75 mg tablet 75 mg PO DAILY losartan 25 mg tablet 25 mg PO DAILY furosemide [Lasix] 20 mg tablet 20 mg PO DAILY metoprolol tartrate 25 mg tablet 12.5 mg PO BID Rx Instructions: sucralfate [Carafate] 1 gram tablet 1 g PO TID PRN (Reason: acid reflux) Qty: 20 0RF ondansetron HCl 4 mg tablet 4 mg PO Q6H PRN (Reason: nausea and vomiting) Qty: 14 0RF bisacodyl [Dulcolax (bisacodyl)] 5 mg tablet,delayed release (DR/EC) 5 mg PO QHS PRN (Reason: constipation) 30 Days Qty: 30 3RF (DME) pen needle, diabetic 32 gauge x needle See Rx Instructions .ROUTE .MEDSUPPLY Qty: 50 0RF Rx Instructions: 4x/day (DME) blood-glucose meter [True Metrix Glucose Meter] Misc See Rx Instructions .Route Qty: 1 0RF Rx Instructions: As directed (DME) True Metrix Glucose Test Strip Strip See Rx Instructions .Route Qty: 100 7RF Rx Instructions: tid albuterol sulfate 90 mcg/actuation HFA aerosol inhaler 2 puff INHALATION Q6H PRN (Reason: shortness of breath or wheezing) Qty: 18 3RF ipratropium-albuterol 0.5 mg-3 mg(2.5 mg base)/3 mL solution for nebulization 3 ml INHALATION Q4H PRN PRN (Reason: SOB &/OR WHEEZING) Qty: 180 6RF risperidone 1 mg tablet 1 mg PO QHS Qty: 90 1RF (DME) [employer] Emily 2 Sensor Kit See Rx Instructions .ROUTE .MEDSUPPLY Qty: 2 3RF Rx Instructions: As directed (DME) FreeStyle Emily 2 [place] Misc See Rx Instructions .ROUTE .MEDSUPPLY Qty: 1 0RF Rx Instructions: As directed insulin lispro [Humalog KwikPen Insulin] 100 unit/mL insulin pen 20 unit SC TID Qty: 72 3RF Rx Instructions: Hold if glucose less than 130 mg/dl insulin glargine [Basaglar KwikPen U-100 Insulin] 100 unit/mL (3 mL) insulin pen 36 unit subcut DAILY Qty: 42 3RF Rx Instructions: daily at bedtime alprazolam 0.25 mg tablet 0.25 mg PO QHS Qty: 30 0RF Primary Care Provider: Billy Madera Referrals: Billy Madera MD [Primary Care Provider] - 1-2 Weeks Disposition Disposition: Home, Self Care
[2023-05-25 20:29] LABS: Absolute Lymphocyte Count 1.44 X10^3/uL (0.83-4.51); Absolute Neutrophil Count 6.4 X10^3/uL (2.0-7.7); Basophil# 0.07 X10^3/uL; Basophil% 0.8 % (0-1); Eosinophil# 0.27 X10^3/uL; Eosinophils% 3.1 % (0-5); Hematocrit 34.9 % (37-47); Lymphocyte # 1.44 X10^3/ul (0.83-4.51); Lymphocyte % 16.3 % (19-41); Mean Corp Hgb Conc 31.5 g/dL (32-36); Mean Corpuscular Volume 92.1 fL (81-99); Mean Platelet Vol. 10.7 fl (6.2-12.0); Monocyte# 0.54 X10^3/uL; Monocyte% 6.1 % (0-10); NRBC Flagged by Analyzer 0 % (0-5); Neutrophil # 6.44 X10^3/uL (2.7-7.7); Neutrophil % 73.1 % (47-70); Platelet Count 277 K/mm3 (150-450); RBC Distribution Width CV 11.9 % (11.6-14.6); RBC Distribution Width SD 40.6 fl (35.1-43.9); Red Blood Count 3.79 M/mm3 (4.2-5.4); White Blood Count 8.8 K/mm3 (4.4-11.0)
--- NOTE | 2023-05-25 20:33 | RAD_ITS ---
INDICATION: cough EXAMINATION/TECHNIQUE: X-RAY - XR Chest 1 View COMPARISON: Prior study dated: 04/16/2023 FINDINGS: LINES/DEVICES: Cardiac leads overlie the chest. LUNGS: The lungs are well expanded. Blunting at the left costophrenic angle is similar to prior imaging, possibly chronic. No consolidation. No edema. No pneumothorax. No definite effusion. MEDIASTINUM AND CARDIOVASCULAR STRUCTURES: Cardiac silhouette is unchanged with a calcified aorta. Central airways and mediastinal contour are unremarkable. BONES AND SOFT TISSUES: No acute abnormality. RAD/Chest 1 View (Portable) IMPRESSION: No acute pulmonary finding. Chronic blunting at the left costophrenic angle. Electronically Signed: Tod Brito MD at 20:44 EDT ,
[2023-05-25 20:55] LABS: AST(SGOT) 13 U/L (15-37); Alanine Aminotransfer ALT/SGPT 21 U/L (13-56); Albumin, Serum 3.2 g/dL (3.2-5.0); Alkaline Phosphatase 150 U/L (45-117); Anion Gap 5 (5-15); BUN 7 mg/dL (7-18); Bilirubin, Direct 0.07 mg/dL (0.00-0.30); Calcium,Total 8.7 mg/dL (8.5-10.1); Chloride 96 mmol/L (98-107); EST Glomerular Filtration Rate 88 mL/min (>60); Est Glom Filt Rate - Afr Amer 106 mL/min (>60); Estimated Creatinine Clearance 40.81 ml/min; Globulin 3.6 g/dL (2.2-4.2); Glucose 136 mg/dL (74-106); Lipase 16 U/L (13-75); Potassium 3.3 mmol/L (3.5-5.1); Protein, Total 6.8 g/dL (6.4-8.2); Sodium Level 134 mmol/L (136-145); Troponin-I HS 11 pg/mL (3.0-54.0)
[2023-05-25] MEDS: Potassium Chloride Oral Tablet 20 MEQ 40 MEQ PO (21:45)
[2023-05-25 22:05] VITALS: BP 155/45; PULSE 71; RESP 22; O2SAT 99
[2023-05-25] MEDS: Azithromycin 250 MG Tablet 500 MG PO (22:13)
== END 2023-05-25 23:25 | disposition home or self-care (01) ==
PROVIDERS: Emergency Provider Emergency Medicine; PCP Internal Medicine; Visit Provider Emergency Medicine
DX: J44.1 Chronic obstructive pulmonary disease with (acute) exacerbation (principal); I50.32 Chronic diastolic (congestive) heart failure; I11.0 Hypertensive heart disease with heart failure; E11.9 Type 2 diabetes mellitus without complications; E78.5 Hyperlipidemia, unspecified; E87.6 Hypokalemia; B34.9 Viral infection, unspecified; Z87.891 Personal history of nicotine dependence; I25.10 Atherosclerotic heart disease of native coronary artery without angina pectoris; Z79.899 Other long term (current) drug therapy; R51.9 Headache, unspecified
CPT/HCPCS: 71045; 80048; 80076; 83690; 84484; 85025; 87428; 93005; 99285; A4216

== ENCOUNTER 2023-05-28 22:20 | Observation (INO) | payer MEDICARE, SELFPAY ==
[2021-11-03 12:08] VITALS: BMI 34.9
[2023-05-28 22:22] VITALS: BP 177/68; PULSE 81; RESP 23; TEMP 36.2; O2SAT 98; BMI 40.5
--- NOTE | 2023-05-28 22:35 | EKG12_ITS ---
Test Reason : SOB Blood Pressure : / mmHG Vent. Rate : 077 BPM Atrial Rate : 077 BPM P-R Int : 164 ms QRS Dur : 078 ms QT Int : 390 ms P-R-T Axes : 069 010 038 degrees QTc Int : 441 ms Normal sinus rhythm Normal ECG Confirmed by RADHA MELVIN, ANABELLE ([id number]), science editor RAMANDEEP HOLGUIN ([id number]) on 06/01/2023 12:33:05 PM Referred By: ELENA Confirmed By:MARKUS GARCIA MD
--- NOTE | 2023-05-28 22:37 | EDS_ITS ---
HPI History of Present Illness Chief Complaint: Shortness of Breath Informant: patient Narrative Narrative: Presents by EMS with dyspnea. Patient has history of COPD. She was here couple days ago. She has been having about 5 days of symptoms. She states she is bringing up sputum that is yellow and syed which is different color than normal. She has now been having fevers. Fever over 101. No chest pain. No hemoptysis. No leg pain or swelling. She states she takes her inhalers and it helps but only for short time. She does live alone. She states she now just too short of breath to walk across her house and care for herself. She was seen here couple days ago. She was feeling better. She was started on antibiotics. She was not started on prednisone because she states she gets mean and bitchy with this and did not want it. But she can take the IV Solu-Medrol. She does not know of any sick contacts. She is on chronic 4 L of oxygen. [facility] Medical History Anemia Anxiety and depression Asthma with COPD Atherosclerotic heart disease of [place] coronary artery without angina pectoris Back pain Chest pain Chronic back pain Chronic respiratory failure COPD (chronic obstructive pulmonary disease) Diastolic CHF Former smoker Hepatitis HLD (hyperlipidemia) Hypertension Morbid obesity Obesity MARK treated with BiPAP Psoriasis Smoking greater than 40 pack years Thyroid nodule Type 2 diabetes mellitus Home Medications Handicap Marta #1 ea 12/12/20 [Rx Last Taken Unknown] bisacodyl 5 mg tablet,delayed release (Dulcolax (bisacodyl)) 5 mg PO QHS PRN constipation 30 days #30 tabs 11/13/21 [Rx Last Taken Unknown] pen needle, diabetic 32 gauge x #50 ea 02/11/22 [Rx Last Taken Unknown] blood sugar diagnostic (True Metrix Glucose Test Strip) #100 ea 09/11/22 [Rx Last Taken Unknown] blood-glucose meter (True Metrix Glucose Meter) #1 ea 09/11/22 [Rx Last Taken Unknown] albuterol sulfate 90 mcg/actuation aerosol inhaler 2 puff inhalation Q6H PRN shortness of breath or wheezing #18 grams 11/06/22 [Rx Last Taken Unknown] ipratropium 0.5 mg-albuterol 3 mg (2.5 mg base)/3 mL nebulization soln 3 ml inhalation Q4H PRN PRN SOB &/OR WHEEZING #180 mL 11/10/22 [Rx Last Taken Unknown] cane #1 ea 11/16/22 [Rx Last Taken Unknown] citalopram 40 mg tablet 40 mg PO QHS depression #90 tabs 11/16/22 [Rx Last Taken Unknown] risperidone 1 mg tablet 1 mg PO QHS anxiety #90 tabs 12/07/22 [Rx Last Taken Unknown] isosorbide mononitrate 60 mg tablet,extended release 24 hr 60 mg PO DAILY BP #90 tabs 12/26/22 [Rx Last Taken Unknown] nitroglycerin 0.4 mg sublingual tablet 0.4 mg sublingual Q5-15M PRN Pain #30 tabs 12/26/22 [Rx Last Taken Unknown] flash glucose sensor ([employer] Emily 2 Sensor kit) #2 ea 01/06/23 [Rx Last Taken Unknown] atorvastatin 80 mg tablet 80 mg PO QHS cholesterol 01/26/23 [History Last Taken Unknown] clopidogrel 75 mg tablet 75 mg PO DAILY blood thinner 01/26/23 [History Last Taken Unknown] furosemide 20 mg tablet (Lasix) 20 mg PO DAILY diuretic 01/26/23 [History Last Taken Unknown] losartan 25 mg tablet 25 mg PO DAILY blood pressure 01/26/23 [History Last Taken Unknown] metoprolol tartrate 25 mg tablet 12.5 mg PO BID blood pressure 01/26/23 [History Last Taken Unknown] flash glucose scanning reader ([employer] Emily 2 [place]) #1 ea 03/23/23 [Rx Last Taken Unknown] ondansetron HCl 4 mg tablet 4 mg PO Q6H PRN nausea and vomiting #14 tabs 04/16/23 [Rx Last Taken Unknown] sucralfate 1 gram tablet (Carafate) 1 g PO TID PRN acid reflux #20 tabs 04/16/23 [Rx Last Taken Unknown] insulin glargine 100 unit/mL (3 mL) subcutaneous pen (Basaglar KwikPen U-100 Insulin) 36 unit (0.36 mL) subcut DAILY diabetic managment #42 mL 05/06/23 [Rx Last Taken Unknown] insulin lispro 100 unit/mL subcutaneous pen (Humalog KwikPen (U-100) Insulin) 20 unit (0.2 mL) subcut TID diabetes #72 mL 05/06/23 [Rx Last Taken Unknown] alprazolam 0.25 mg tablet 0.25 mg PO QHS anxiety #30 tabs 05/12/23 [Rx Last Taken Unknown] pantoprazole 40 mg tablet,delayed release 40 mg PO BID stomach #180 tabs 05/20/23 [Rx Last Taken Unknown] potassium chloride 20 mEq tablet,extended release 20 meq PO DAILY #3 tabs 05/25/23 [Rx Last Taken Unknown] Allergy/AdvReac Type Severity Reaction Status Date / Time amoxicillin [Amoxicillin] Allergy Intermediate Rash Verified 05/28/23 22:22 hydrocodone Allergy Intermediate SWELLING Verified 05/28/23 22:22 gabapentin [From Neurontin] Allergy Shortness Verified 05/28/23 22:22 of breath levofloxacin [From Levaquin] Allergy Hives Verified 05/28/23 22:22 pseudoephedrine HCl Allergy Shortness Verified 05/28/23 22:22 [From Sudafed] of breath red dye Allergy Hives Verified 05/28/23 22:22 prednisone AdvReac Severe mean mood Verified 05/28/23 22:22 clonazepam [From Klonopin] AdvReac Depression Verified 05/28/23 22:22 codeine AdvReac HEADACHE Verified 05/28/23 22:22 Family History Brother Heart disease Mother Colon cancer Heart disease Surgical History History of cholecystectomy History of left heart catheterization (LHC) (~09/23/20) Stented coronary artery (12/28/18) Social History Smoking Status: Former smoker pack-years: 40 how long ago did patient quit smokin year ago alcohol intake: never substance use type: does not use caffeine: Yes Type: carbonated beverages and tea what type of physical activity do you participate in: none ROS ROS ED ROS Narrative A complete review of systems was performed and is negative except as documented in the history of present illness. Some specific details below. Constitutional: Positive recent fevers now. EYE: No discharge, visual complaints, or pain. ENT: No difficulty swallowing. No GERD symptoms. No stridor. CV: She denies chest pain or palpitations. Respiratory: See history of present illness. GI: No abdominal pain. No nausea vomiting diarrhea. No blood in stool. : No frequency dysuria or hematuria. Musculoskeletal: No recent trauma. No pains. No swelling. Skin: No rash. Nondiaphoretic. Neuro: No focal weakness or numbness. Endocrine: No polyuria or polydipsia. EXAM Physical Exam Narrative Exam Narrative: CONSTITUTIONAL: Patient is nontoxic. But work of breathing is certainly increased. HEENT: No notable trauma. Mucous membranes moist. EYES: No conjunctival injection. No proptosis. No pallor. NECK:No JVD. No stridor. CARDIOVASCULAR: Regular rate. Regular rhythm. No notable murmur. No JVD. RESPIRATORY: No respiratory distress. But she has increased work of breathing. She has increased respiratory rate. Saturations now are about 94% on 5 L. We will see if we can turn her down to her 4 L level. I can hear diffuse wheezing throughout. She does have coughing. No sputum was produced while I was in the room. GASTROINTESTINAL: Obese but not distended. Bowel sounds are normal. No tenderness. No guarding. No rebound. No palpable mass. No bruit is heard. GENITOURINARY: No tenderness over the bladder. MUSCULOSKELETAL: Atraumatic. No notable edema. No asymmetry. NEUROLOGICAL: Patient is alert and appropriate. No focal deficit noted. She is not at all sleepy or lethargic. No indication of CO2 retention. SKIN: No noted rashes. No diaphoresis. PSYCHIATRIC: Patient is calm. Mood is appropriate. Const Vital Signs: 05/28/23 22:22 05/28/23 22:27 05/28/23 22:48 Temperature 97.1 F L Temperature Source Temporal Pulse Rate 81 97 Respiratory Rate 23 H 20 H Respiratory Effort Short of Breath Accessory Muscle Use Respiratory Depth Shallow Respiratory Pattern Tachypnea Tachypnea Blood Pressure 177/68 H Blood Pressure Mean 104 Pulse Ox 98 Oxygen Delivery Method Nasal Cannula Nasal Cannula Oxygen Flow Rate (L/min) 5 05/28/23 23:06 05/28/23 23:29 Temperature Temperature Source Pulse Rate 68 Respiratory Rate 18 Respiratory Effort Respiratory Depth Respiratory Pattern Blood Pressure 130/58 H Blood Pressure Mean 82 Pulse Ox 94 95 Oxygen Delivery Method Nasal Cannula Nasal Cannula Oxygen Flow Rate (L/min) 4 4 MDM MDM MDM Narrative Medical decision making narrative: My independent interpretation of the patient's single view chest x-ray shows increased markings at the left base definitely in a little bit at the right. This seems worse than 1 from 2 days ago when I compare it even allowing for technique. Final reading is agrees and is similar to this. CBC shows very mild anemia. Slight elevation of white count from the other day but still within normal limits. Electrolytes show elevation of glucose at 313. She is given IV fluids that should help bring this down. BNP is not notably elevated at 87.7 Lactate is plated 2.3. Patient is given azithromycin here. She has allergies to multiple antibiotics. She has allergies to steroids but states she can take IV Solu-Medrol so this was given. I am giving her some IV fluids. But she also is on Lasix and has some history of CHF. Since her blood pressure and heart rate are good now I do not want to give her 30 cc/kg as I think we could cause more injury than benefit in this case. She also was not showing signs of an acute kidney injury. I think a lot of her weighted lactate may be from poor oxygenation rather than poor perfusion. With her bringing up more sputum, fevers, living alone, hypoxia, elevated lactate, worsening x-ray despite antibiotics inpatient management is appropriate. I have got the hospitalist on page. Lab Data Attestation: I reviewed the patient's lab results. Labs: Laboratory Results - last 24 hr 05/28/23 22:50 WBC 10.1 RBC 3.66 L Hgb 10.6 L Hct 33.8 L MCV 92.3 MCH 29.0 MCHC 31.4 L RDW Std Deviation 40.8 RDW Coeff of Malcom 12.0 Plt Count 326 MPV 10.3 Immature Gran % (Auto) 0.800 Neut % (Auto) 77.6 H Lymph % (Auto) 14.7 L [place] % (Auto) 4.7 Eos % (Auto) 1.6 Baso % (Auto) 0.6 Absolute Neuts (auto) 7.9 H Absolute Lymphs (auto) 1.49 Nucleated RBC % 0 Sodium 136 Potassium 3.7 Chloride 98 Carbon Dioxide 33.0 H Anion Gap 5 BUN 12 Creatinine 0.93 Estim Creat Clear Calc 43.88 Est GFR (MDRD) Af Amer 77 Est GFR (MDRD) Non-Af 63 BUN/Creatinine Ratio 13.0 Glucose 313 H Lactic Acid 2.3 H* Calcium 8.9 B-Natriuretic Peptide 87.7 Radiography Diagnostic Testing: Clinical Impression(s) from Imaging Studies Chest X-Ray 05/28/23 23:10 IMPRESSION: Worsening bibasilar atelectasis or pneumonia. Electronically Signed: Max Braxton MD at 23:23 EDT , EKG Initial EKG: Comments: My independent interpretation of the patient's EKG shows normal sinus rhythm with a rate of 77. Bit of irregularity of baseline but no sign of acute ST elevation or depression. No ventricular ectopy. NC interval, QRS duration and QTc are normal. Management Discussion w/another healthcare provider: Hospitalist Discharge Plan Dx/Rx/DC Orders Clinical Impression: Failure of outpatient treatment, Acute exacerbation of chronic obstructive pulmonary disease, Sepsis, Bilateral pneumonia, Acidosis, lactic Disposition Disposition: Acute Care [facility]
[2023-05-28 22:48] VITALS: PULSE 97; RESP 20
[2023-05-28] MEDS: Ipratropium/Albuterol Sulfate 3 ML AMPUL.NEB INHALATION (22:48)
[2023-05-28 22:59] LABS: Absolute Lymphocyte Count 1.49 X10^3/uL (0.83-4.51); Absolute Neutrophil Count 7.9 X10^3/uL (2.0-7.7); Basophil# 0.06 X10^3/uL; Basophil% 0.6 % (0-1); Eosinophil# 0.16 X10^3/uL; Eosinophils% 1.6 % (0-5); Hematocrit 33.8 % (37-47); Hemoglobin 10.6 g/dL (12.0-15.0); Lymphocyte # 1.49 X10^3/ul (0.83-4.51); Lymphocyte % 14.7 % (19-41); Mean Corp Hgb Conc 31.4 g/dL (32-36); Mean Corpuscular Volume 92.3 fL (81-99); Mean Platelet Vol. 10.3 fl (6.2-12.0); Monocyte# 0.48 X10^3/uL; Monocyte% 4.7 % (0-10); NRBC Flagged by Analyzer 0 % (0-5); Neutrophil # 7.87 X10^3/uL (2.7-7.7); Neutrophil % 77.6 % (47-70); Platelet Count 326 K/mm3 (150-450); RBC Distribution Width SD 40.8 fl (35.1-43.9); Red Blood Count 3.66 M/mm3 (4.2-5.4); White Blood Count 10.1 K/mm3 (4.4-11.0)
[2023-05-28 23:06] VITALS: O2SAT 94
--- NOTE | 2023-05-28 23:10 | RAD_ITS ---
STUDY: X-RAY CHEST REASON FOR EXAM: Female, 72 years old. cough TECHNIQUE: Single AP portable view of the chest. COMPARISON: 05/25/2023 FINDINGS: Increased alveolar opacity in both lung bases consistent with worsening bibasilar atelectasis or pneumonia. There is no demonstrated pleural abnormality. Normal size heart. Normal mediastinum and wallace. Normal visualized pulmonary arteries. Normal visualized aortic arch and descending thoracic aorta. Normal visualized thoracic spine. Normal visualized ribs, clavicles, and shoulders. There is no demonstrated abnormality of the visualized soft tissue structures of the upper abdomen. RAD/Chest 1 View (Portable) IMPRESSION: Worsening bibasilar atelectasis or pneumonia. Electronically Signed: Max Braxton MD at 23:23 EDT ,
[2023-05-28 23:18] LABS: Anion Gap 5 (5-15); BUN 12 mg/dL (7-18); Calcium,Total 8.9 mg/dL (8.5-10.1); Chloride 98 mmol/L (98-107); Creatinine, Serum 0.93 mg/dL (0.55-1.02); EST Glomerular Filtration Rate 63 mL/min (>60); Est Glom Filt Rate - Afr Amer 77 mL/min (>60); Estimated Creatinine Clearance 43.88 ml/min; Glucose 313 mg/dL (74-106); Potassium 3.7 mmol/L (3.5-5.1); Sodium Level 136 mmol/L (136-145)
[2023-05-28 23:21] LABS: BNP,B-Type NATRIURETIC PEPTIDE 87.7 pg/mL (0-100)
[2023-05-28] MEDS: MethylPREDNISolone 125 MG/2 ML Vial IV (23:24)
[2023-05-28] MEDS: Azithromycin 500 MG in Dextrose 5%-Water (250mL Bag) 250 ML 250 MG IV (23:24)
[2023-05-28 23:25] LABS: Lactic Acid 2.3 mmol/L (0.4-1.9)
[2023-05-28 23:29] VITALS: BP 130/58; PULSE 68; RESP 18; O2SAT 95
[2023-05-29] VITALS (24 sets, daily range): BP systolic 127–184; BP diastolic 52–85; PULSE 60–100; RESP 12–45; TEMP 35.9–37.1; O2SAT 95–100; BMI 39.8
[2023-05-29] MEDS: 0.9% Normal Saline (1000mL) 1,000 ML 999 ML IV (00:45)
--- NOTE | 2023-05-29 01:00 | PCM.HP.STD ---
[facility] - General General Date of Admission: 05/29/23 Date of Service: 05/29/23 Chief Complaint: Progressive worsening of shortness of breath, fever, productive cough for 1 week. [facility] Narrative TIM CEDILLO, is a 72 F who presents with history of COPD on 4 L of home oxygen was brought to ED by EMS for shortness of breath, difficulty breathing and cough for 1 week. Patient came to ED 2 days ago on past Wednesday and was given Z-Arslan. She has just 1 tablet left. As per EMS her temperature was 101.2 Fahrenheit. Patient states she was short of breath even at rest cough, chest congestion and tightness and brings up thick yellow and brownish sputum. Patient is stated that she is too short of breath to walk within her home and take care of herself. She denies chest pressure or sharp chest pain. EMS vital shows heart rate 94 tachypneic respiratory rate 30 BP 142/86.In ED, patient was saturating 95% on 4 L of oxygen. In ED, chest x-ray was done and compared from the previous chest x-ray which shows bilateral lower lobe infiltrate. Patient given IV Solu-Medrol, DuoNeb donation, ceftriaxone and Zithromax and further admitted [facility] Medical History Anemia Anxiety and depression Asthma with COPD Atherosclerotic heart disease of [place] coronary artery without angina pectoris Back pain Chest pain Chronic back pain Chronic respiratory failure COPD (chronic obstructive pulmonary disease) Diastolic CHF Former smoker Hepatitis HLD (hyperlipidemia) Hypertension Morbid obesity Obesity MARK treated with BiPAP Psoriasis Smoking greater than 40 pack years Thyroid nodule Type 2 diabetes mellitus Home Medications Handicap Placard #1 ea 12/12/20 [Rx Last Taken Unknown] bisacodyl 5 mg tablet,delayed release (Dulcolax (bisacodyl)) 5 mg PO QHS PRN constipation 30 days #30 tabs 11/13/21 [Rx Last Taken Unknown] pen needle, diabetic 32 gauge x #50 ea 02/11/22 [Rx Last Taken Unknown] blood sugar diagnostic (True Metrix Glucose Test Strip) #100 ea 09/11/22 [Rx Last Taken Unknown] blood-glucose meter (True Metrix Glucose Meter) #1 ea 09/11/22 [Rx Last Taken Unknown] albuterol sulfate 90 mcg/actuation aerosol inhaler 2 puff inhalation Q6H PRN shortness of breath or wheezing #18 grams 11/06/22 [Rx Last Taken Unknown] ipratropium 0.5 mg-albuterol 3 mg (2.5 mg base)/3 mL nebulization soln 3 ml inhalation Q4H PRN PRN SOB &/OR WHEEZING #180 mL 11/10/22 [Rx Last Taken Unknown] cane #1 ea 11/16/22 [Rx Last Taken Unknown] citalopram 40 mg tablet 40 mg PO QHS depression #90 tabs 11/16/22 [Rx Last Taken Unknown] risperidone 1 mg tablet 1 mg PO QHS anxiety #90 tabs 12/07/22 [Rx Last Taken Unknown] isosorbide mononitrate 60 mg tablet,extended release 24 hr 60 mg PO DAILY BP #90 tabs 12/26/22 [Rx Last Taken Unknown] nitroglycerin 0.4 mg sublingual tablet 0.4 mg sublingual Q5-15M PRN Pain #30 tabs 12/26/22 [Rx Last Taken Unknown] flash glucose sensor (Urban Ladderyle Emily 2 Sensor kit) #2 ea 01/06/23 [Rx Last Taken Unknown] atorvastatin 80 mg tablet 80 mg PO QHS cholesterol 01/26/23 [History Last Taken Unknown] clopidogrel 75 mg tablet 75 mg PO DAILY blood thinner 01/26/23 [History Last Taken Unknown] furosemide 20 mg tablet (Lasix) 20 mg PO DAILY diuretic 01/26/23 [History Last Taken Unknown] losartan 25 mg tablet 25 mg PO DAILY blood pressure 01/26/23 [History Last Taken Unknown] metoprolol tartrate 25 mg tablet 12.5 mg PO BID blood pressure 01/26/23 [History Last Taken Unknown] flash glucose scanning reader (Yandex Emily 2 Harmon) #1 ea 03/23/23 [Rx Last Taken Unknown] ondansetron HCl 4 mg tablet 4 mg PO Q6H PRN nausea and vomiting #14 tabs 04/16/23 [Rx Last Taken Unknown] sucralfate 1 gram tablet (Carafate) 1 g PO TID PRN acid reflux #20 tabs 04/16/23 [Rx Last Taken Unknown] insulin glargine 100 unit/mL (3 mL) subcutaneous pen (Basaglar KwikPen U-100 Insulin) 36 unit (0.36 mL) subcut DAILY diabetic managment #42 mL 05/06/23 [Rx Last Taken Unknown] insulin lispro 100 unit/mL subcutaneous pen (Humalog KwikPen (U-100) Insulin) 20 unit (0.2 mL) subcut TID diabetes #72 mL 05/06/23 [Rx Last Taken Unknown] alprazolam 0.25 mg tablet 0.25 mg PO QHS anxiety #30 tabs 05/12/23 [Rx Last Taken Unknown] pantoprazole 40 mg tablet,delayed release 40 mg PO BID stomach #180 tabs 05/20/23 [Rx Last Taken Unknown] potassium chloride 20 mEq tablet,extended release 20 meq PO DAILY #3 tabs 05/25/23 [Rx Last Taken Unknown] Allergy/AdvReac Type Severity Reaction Status Date / Time amoxicillin [Amoxicillin] Allergy Intermediate Rash Verified 05/28/23 22:22 hydrocodone Allergy Intermediate SWELLING Verified 05/28/23 22:22 gabapentin [From Neurontin] Allergy Shortness Verified 05/28/23 22:22 of breath levofloxacin [From Levaquin] Allergy Hives Verified 05/28/23 22:22 pseudoephedrine HCl Allergy Shortness Verified 05/28/23 22:22 [From Sudafed] of breath red dye Allergy Hives Verified 05/28/23 22:22 prednisone AdvReac Severe mean mood Verified 05/28/23 22:22 clonazepam [From Klonopin] AdvReac Depression Verified 05/28/23 22:22 codeine AdvReac HEADACHE Verified 05/28/23 22:22 Family History Brother Heart disease Mother Colon cancer Heart disease Surgical History History of cholecystectomy History of left heart catheterization (LHC) (~09/23/20) Stented coronary artery (12/28/18) Social History Smoking Status: Former smoker pack-years: 40 how long ago did patient quit smokin year ago alcohol intake: never substance use type: does not use caffeine: Yes Type: carbonated beverages and tea what type of physical activity do you participate in: none ROS ROS Narrative Constitutional: Reports fatigue and weakness. No fever. HEENT: Reports systems reviewed and no addt'l complaints, except as documented Respiratory/Chest: As described in HPI. Quit smoking 3 years ago previously used to smoke 1/2 pack/day CVS: No anginal quality chest pain or pressure. Gastrointestinal: Nausea. Denies coffee ground emesis, hematemesis or vomiting Genitourinary: Denies burning urination or new urinary tract symptoms Musculoskeletal: Denies acute joint pain or limited range of motion. No acute injury Neurologic: Denies seizure-like symptoms. skin: No ulcer. No rash Endocrinology: Reports systems reviewed and no addt'l complaints, except as documented Hematologic/Lymphatic: Reports systems reviewed and no addt'l complaints, except as documented Rest 14 ROS are negative except as mentioned in HPI Vital Signs Vital Signs Vital Signs: 05/28/23 22:22 05/28/23 22:27 05/28/23 22:48 Temperature 97.1 F L Temperature Source Temporal Pulse Rate 81 97 Respiratory Rate 23 H 20 H Respiratory Effort Short of Breath Accessory Muscle Use Respiratory Depth Shallow Respiratory Pattern Tachypnea Tachypnea Blood Pressure 177/68 H Blood Pressure Mean 104 Pulse Ox 98 Oxygen Delivery Method Nasal Cannula Nasal Cannula Oxygen Flow Rate (L/min) 5 05/28/23 23:06 05/28/23 23:29 05/29/23 00:42 Temperature 96.6 F L Temperature Source Temporal Pulse Rate 68 65 Respiratory Rate 18 19 H Respiratory Effort Respiratory Depth Respiratory Pattern Blood Pressure 130/58 H 137/61 H Blood Pressure Mean 82 86 Pulse Ox 94 95 97 Oxygen Delivery Method Nasal Cannula Nasal Cannula Nasal Cannula Oxygen Flow Rate (L/min) 4 4 4 05/29/23 00:46 Temperature 96.6 F L Temperature Source Pulse Rate 65 Respiratory Rate 19 H Respiratory Effort Respiratory Depth Respiratory Pattern Blood Pressure 137/61 H Blood Pressure Mean 86 Pulse Ox 97 Oxygen Delivery Method Oxygen Flow Rate (L/min) Weight Weight: 221 lb 12.56 oz Body Mass Index (BMI) 40.5 Physical Exam Narrative General: Alert, Oriented x3, Cooperative HEENT: Atraumatic, PERRLA, EOMI, Normocephalic Oral: Oral mucosa dry. No Gingival or Mucosal Lesions/ Ulcerations Neck: Supple, No JVD, Negative Carotid Bruits Lungs: Air entry diminished in bilateral lung bases. Tachypnea, bilateral coarse crepitations predominantly in lower lobes. Cardiovascular: Regular rate, Regular Rhythm, Normal S1, Normal S2, No murmurs Abdomen: Bowel Sounds Present, Soft, Non Tender, Non-Distended : No renal angle tenderness. No suprapubic tenderness. Extremities: No edema, Capillary Refill Less than 3 Seconds Skin: No rashes, No breakdown Musculoskeletal: No Tenderness to Palpation of Joints or Extremities. Bilateral knee and hip joints arthritis. Neurological: Cranial nerves II-XII grossly intact, DTR 2+/4. No acute focal neurological deficit. Psych/Mental Status: Flat affect, anxiety and mild depression. Results Lab / Micro Data 05/28/23 22:50 05/28/23 22:50 Labs: Laboratory Results - last 24 hr 05/28/23 22:50: WBC 10.1, RBC 3.66 L, Hgb 10.6 L, Hct 33.8 L, MCV 92.3, MCH 29.0, MCHC 31.4 L, RDW Std Deviation 40.8, RDW Coeff of Malcom 12.0, Plt Count 326, MPV 10.3, Immature Gran % (Auto) 0.800, Neut % (Auto) 77.6 H, Lymph % (Auto) 14.7 L, Bryan % (Auto) 4.7, Eos % (Auto) 1.6, Baso % (Auto) 0.6, Absolute Neuts (auto) 7.9 H, Absolute Lymphs (auto) 1.49, Nucleated RBC % 0, Sodium 136, Potassium 3.7, Chloride 98, Carbon Dioxide 33.0 H, Anion Gap 5, BUN 12, Creatinine 0.93, Estim Creat Clear Calc 43.88, Est GFR (MDRD) Af Amer 77, Est GFR (MDRD) Non-Af 63, BUN/Creatinine Ratio 13.0, Glucose 313 H, Lactic Acid 2.3 H*, Calcium 8.9, B-Natriuretic Peptide 87.7 Micro: Microbiology 05/28/23 23:50 Nasal Secretion SARS-CoV-2 & FLU Antigen (Rapid) - Final Radiology Impression Chest X-Ray 05/28/23 23:10 IMPRESSION: Worsening bibasilar atelectasis or pneumonia. Electronically Signed: Max Braxton MD at 23:23 EDT , Assessment & Plan Assessment/Plan (1) Bilateral pneumonia: QUALIFIERS: Pneumonia type: due to unspecified organism Lung location: lower lobe of lung Qualified Code(s): J18.9 - Pneumonia, unspecified organism (2) Acute exacerbation of chronic obstructive pulmonary disease: PLAN: Plan 1. Acute exacerbation of COPD most likely due to bilateral lower lobes pneumonia, organism unspecified-chronic hypoxic respiratory failure: Patient is being admitted in PCU. Patient had 1 dose of IV ceftriaxone and Zithromax in ED. She also had treatment with Z-Arslan at home therefore we will continue IV ceftriaxone. Doxycycline is started. Pneumonia work-up including blood cultures x2. COVID-19 PCR. Patient had full course including booster dose of COVID. Patient is being managed on scheduled bronchodilator, IV Solu-Medrol, Mucinex, incentive spirometry and Pep. Patient on full liter of oxygen continued. BiPAP as needed. Patient was last admitted in January for similar COPD exacerbation from pneumonia. Patient follows Dr. Nuno in pulmonary clinic. Lactic acid elevated most likely due to hypoxia. Patient does not have clinical signs and symptoms or lab features of sepsis. Sepsis ruled out. 2. CAD: Status post PCI ostial diagonal and mid LAD 12/26/2018. Patient was also admitted for unstable angina in December 2022 and at that time cardiac cath was done for abnormal stress test. Cardiac cath showed ostial lesion of jailed diagonal branch, patent LAD stent therefore no PCI was done. Continue losartan, metoprolol, isosorbide and Plavix #3. Chronic Diastolic CHF: 08/11/2021 echocardiogram with normal LV size, moderate concentric LVH, LV systolic function normal, EF 60%, pulmonary artery systolic pressure 40 mmHg, stage I diastolic dysfunction. Patient is on Lasix 20 mg along with potassium supplement continued. Patient not showing clinical features of acute heart failure exacerbation. #5. Diabetes mellitus type II: Continue home dose of Lantus insulin and lispro insulin. Continue 1800 ADA diet, accu checks w/ ISS. #6. Hypertension: Blood pressure is normal range. Continue home regimen including metoprolol, losartan, isosorbide. #7. Hyperlipidemia: Continue home statin regimen. Fasting profile in December 2022 within normal limit LDL 44, HDL 55. Continue high intensity atorvastatin. #8. Chronic normocytic anemia: Admission hemoglobin 10.6 g. On baseline. Platelet count normal. #9. Anxiety and depression: continue patient home risperidone, citalopram, alprazolam home regimen. #10. Morbid Obesity: Weight loss and lifestyle changes encouraged. #11. Other comorbidities include obstructive sleep apnea, former smoker: On BiPAP as needed at night. DVT prophylaxis: Lovenox. Living will/advanced directive/end of life care: Patient does not have living will or advanced directive. Her [id number] and son who lives in [place] is next to kin. She does not have designated power of civil attorney for health. After discussion of benefits/risks procedures involved with full code, DNR CC arrest and DNR CC, the patient opted for full code. Patient does want artificial life support including intubation, tube feed, ventilator and/chest compression, central venous catheter, vasopressor and DC shock if needed Total time spent in [id number] encounter in discussion of advanced directive 17 minutes. Microbiology Past 72 Hours 05/28/23 23:50 Nasal Secretion SARS-CoV-2 & FLU Antigen (Rapid) - Final Laboratory Results 05/28/23 22:50: WBC 10.1, RBC 3.66 L, Hgb 10.6 L, Hct 33.8 L, MCV 92.3, MCH 29.0, MCHC 31.4 L, RDW Std Deviation 40.8, RDW Coeff of Malcom 12.0, Plt Count 326, MPV 10.3, Immature Gran % (Auto) 0.800, Neut % (Auto) 77.6 H, Lymph % (Auto) 14.7 L, Bryan % (Auto) 4.7, Eos % (Auto) 1.6, Baso % (Auto) 0.6, Absolute Neuts (auto) 7.9 H, Absolute Lymphs (auto) 1.49, Nucleated RBC % 0 Sodium 136, Potassium 3.7, Chloride 98, Carbon Dioxide 33.0 H, Anion Gap 5, BUN 12, Creatinine 0.93, Estim Creat Clear Calc 43.88, Est GFR (MDRD) Af Amer 77, Est GFR (MDRD) Non-Af 63, BUN/Creatinine Ratio 13.0, Glucose 313 H, Lactic Acid 2.3 H*, Calcium 8.9, B-Natriuretic Peptide 87.7 Clinical Impression(s) from Imaging Studies Chest X-Ray 05/28/23 23:10 IMPRESSION: Worsening bibasilar atelectasis or pneumonia. Charges/Coding Visit Charges Inpatient E&M: 02352 Init Hosp L3 Procedures Hospitalists Procedures: 65088 Advncd Care Plan 30 Min
[2023-05-29] MEDS: Ceftriaxone 1 GM/50 ML BAG IV (01:19)
[2023-05-29 01:56] LABS: Magnesium 2.1 mg/dL (1.6-2.6)
[2023-05-29] MEDS: Ipratropium/Albuterol Sulfate 3 ML AMPUL.NEB INHALATION ×6 (02:00→22:57)
[2023-05-29] MEDS: ALPRAZolam 0.25 MG Tablet PO ×2 (02:18→19:55)
[2023-05-29] MEDS: RisperiDONE 1 MG Tablet PO ×2 (02:18→19:54)
[2023-05-29] MEDS: Acetaminophen 325 MG Tablet 650 MG PO ×3 (02:31→19:54)
[2023-05-29] MEDS: Insulin Glargine-YFGN 100 UNIT/ML Pen 36 UNIT SC ×2 (02:39→20:02)
[2023-05-29] MEDS: Sucralfate 1 GM Tablet PO ×2 (02:39→11:44)
[2023-05-29] MEDS: 0.9% Saline Lock 10 ML Syringe IV ×2 (02:40→19:53)
[2023-05-29 02:56] LABS: Reflex Lactate? Y
[2023-05-29 02:58] LABS: Bedside Glucose 145 mg/dL (74-106)
[2023-05-29 03:16] LABS: Absolute Lymphocyte Count 0.86 X10^3/uL (0.83-4.51); Absolute Neutrophil Count 9.2 X10^3/uL (2.0-7.7); Basophil# 0.05 X10^3/uL; Basophil% 0.5 % (0-1); Eosinophil# 0.07 X10^3/uL; Eosinophils% 0.7 % (0-5); Hematocrit 32.5 % (37-47); Hemoglobin 10.1 g/dL (12.0-15.0); Lymphocyte # 0.86 X10^3/ul (0.83-4.51); Lymphocyte % 8.2 % (19-41); Mean Corp Hgb Conc 31.1 g/dL (32-36); Mean Corpuscular Hgb 28.9 pg (27.0-32.0); Mean Corpuscular Volume 93.1 fL (81-99); Mean Platelet Vol. 10.4 fl (6.2-12.0); Monocyte# 0.28 X10^3/uL; Monocyte% 2.7 % (0-10); NRBC Flagged by Analyzer 0 % (0-5); Neutrophil # 9.22 X10^3/uL (2.7-7.7); Neutrophil % 87.2 % (47-70); Platelet Count 317 K/mm3 (150-450); RBC Distribution Width SD 40.8 fl (35.1-43.9); Red Blood Count 3.49 M/mm3 (4.2-5.4); White Blood Count 10.6 K/mm3 (4.4-11.0)
[2023-05-29 03:30] LABS: M R Staph aureus DNA By PCR Negative (Negative); Probe Check PASS; Specimen Processing Control PASS
[2023-05-29 03:39] LABS: Lactic Acid 1.7 mmol/L (0.4-1.9)
[2023-05-29 03:44] LABS: Anion Gap 7 (5-15); BUN 10 mg/dL (7-18); BUN/Creat Ratio 12.4 RATIO (10-20); Calcium,Total 8.6 mg/dL (8.5-10.1); Chloride 105 mmol/L (98-107); EST Glomerular Filtration Rate 75 mL/min (>60); Est Glom Filt Rate - Afr Amer 90 mL/min (>60); Estimated Creatinine Clearance 51.01 ml/min; Glucose 152 mg/dL (74-106); Potassium 3.7 mmol/L (3.5-5.1); Sodium Level 142 mmol/L (136-145)
[2023-05-29] MEDS: Methylprednisolone Sod Succ 40 MG/ML VIAL IV (05:35)
[2023-05-29] MEDS: Enoxaparin 40 MG/0.4 ML Syringe SC (05:35)
[2023-05-29] MEDS: Losartan Potassium 25 MG Tablet PO (07:28)
[2023-05-29] MEDS: Metoprolol Tartrate 25 MG Tablet 12.5 MG PO ×2 (07:28→19:55)
[2023-05-29] MEDS: Pantoprazole Sodium 40 MG Tablet PO ×2 (07:28→19:55)
[2023-05-29] MEDS: Doxycycline 100 MG CAPSULE PO ×2 (07:28→19:54)
[2023-05-29] MEDS: Isosorbide Mononitrate 60 MG Tablet PO (07:29)
[2023-05-29] MEDS: Clopidogrel Bisulfate 75 MG Tablet PO (07:30)
[2023-05-29] MEDS: Furosemide 20 MG Tablet PO (07:30)
[2023-05-29] MEDS: Potassium Chloride Oral Tablet 20 MEQ PO (07:30)
[2023-05-29] MEDS: Insulin Lispro 100 UNIT/ML INSULN.PEN 20 UNIT SC ×3 (07:37→17:14)
[2023-05-29] MEDS: Insulin Lispro 100 UNIT/ML INSULN.PEN SC ×4 (07:37→20:02)
[2023-05-29 07:59] LABS: Bedside Glucose 259 mg/dL (74-106)
[2023-05-29] MEDS: Ceftriaxone 2 GM in 0.9% Normal Saline (50mL MB+) 50 ML IV (09:23)
[2023-05-29] MEDS: Bisacodyl 5 MG Tablet PO (11:44)
--- NOTE | 2023-05-29 11:46 | CASEMGMT ---
HARLEEN LUCIANO Assessment: Face to Face with pt for initial transition planning/care coordination assessment. HARLEEN LUCIANO introduced self and role at [facility], pt voices understanding and consents to assessment. Pt is A&O x4 and answers all questions appropriately at this time. Pt sitting up in chair with oxygen on in no distress. Care providers, pharmacy, and demographics verified/updated. Admitting Dx: COPD exac, pna PCP:Santy Specialists:Yaakov, pulsandip; [facility], cardio Preferred [facility]acy: [facility] Insurance: [employer] [facility] Prescription Benefit: yes LNOK: Farideh Vargas, desire Living Arrangements: Pt lives alone in a ground level apt with 2 steps to enter with a rail. Pt reports she is I at home and denies concerns. Transportation: Pt drives self and denies concerns with transportation. DME:shower chair, walker, cane- Pt was not using AD prior to hospitalization; nebulizer, BGM and insulin with sufficient supplies, inogen, oxygen through [employer] at 4L cont, pox, bp cuff HHC/SNF: Pt used to have aides from [facility] but states she makes too much money now and cannot have them. Pt has been to [facility]. Pt states no concerns with going home at time of dc. Pt does not feel she needs any services at home. She states she already knows all that referring to disease education. Pt states she does not have anyone to bring in her oxygen to go home on and she will need an ambulance to transport her home. Pt states no further concerns/needs. CM to follow. Advised pt to ask CM if any further question/concerns/needs arise, voices understanding. Pt Goal: Home Plan: Home, follow oxygen and transportation home
[2023-05-29 11:59] LABS: Bedside Glucose 322 mg/dL (74-106)
--- NOTE | 2023-05-29 13:59 | PN_ITS ---
Subjective Subjective Patient seen and examined. She has no active complaints. She feels her breathing is getting better. She is coughing and trying to bring up some sputum. She had an uneventful night otherwise review of systems otherwise negative Objective Data Objective Data Vital Signs: Vital Signs Temp Pulse Resp BP Pulse Ox O2 Del Method O2 Flow Rate 98.8 F 82 20 H 151/52 H 99 Nasal Cannula 4 05/29/23 13:00 05/29/23 13:00 05/29/23 13:00 05/29/23 13:00 05/29/23 13:00 05/29/23 13:00 05/29/23 13:00 FiO2 40 05/29/23 07:10 Oxygen Flow Rate (L/min) 4 Oxygen Delivery Method Nasal Cannula Weight: 217 lb 13.067 oz Body Mass Index (BMI) 39.8 Intake & Output: Intake and Output for Last 24 Hours 05/27/23 05/28/23 05/29/23 23:59 23:59 23:59 Intake Total 1555 / 1555 Balance 1555 / 1555 Lab / Micro Data 05/29/23 02:55 05/29/23 02:55 Labs: Laboratory Results - last 24 hr 05/28/23 22:50: WBC 10.1, RBC 3.66 L, Hgb 10.6 L, Hct 33.8 L, MCV 92.3, MCH 29.0, MCHC 31.4 L, RDW Std Deviation 40.8, RDW Coeff of Malcom 12.0, Plt Count 326, MPV 10.3, Immature Gran % (Auto) 0.800, Neut % (Auto) 77.6 H, Lymph % (Auto) 14.7 L, [place] % (Auto) 4.7, Eos % (Auto) 1.6, Baso % (Auto) 0.6, Absolute Neuts (auto) 7.9 H, Absolute Lymphs (auto) 1.49, Nucleated RBC % 0, Sodium 136, Potassium 3.7, Chloride 98, Carbon Dioxide 33.0 H, Anion Gap 5, BUN 12, Creatinine 0.93, Estim Creat Clear Calc 43.88, Est GFR (MDRD) Af Amer 77, Est GFR (MDRD) Non-Af 63, BUN/Creatinine Ratio 13.0, Glucose 313 H, Lactic Acid 2.3 H*, Calcium 8.9, Magnesium 2.1, B-Natriuretic Peptide 87.7 05/29/23 01:43: MRSA (PCR) Negative 05/29/23 02:39: POC Glucose 145 H 05/29/23 02:55: WBC 10.6, RBC 3.49 L, Hgb 10.1 L, Hct 32.5 L, MCV 93.1, MCH 28.9, MCHC 31.1 L, RDW Std Deviation 40.8, RDW Coeff of Malcmo 12.0, Plt Count 317, MPV 10.4, Immature Gran % (Auto) 0.700, Neut % (Auto) 87.2 H, Lymph % (Auto) 8.2 L, [place] % (Auto) 2.7, Eos % (Auto) 0.7, Baso % (Auto) 0.5, Absolute Neuts (auto) 9.2 H, Absolute Lymphs (auto) 0.86, Nucleated RBC % 0, Sodium 142, Potassium 3.7, Chloride 105, Carbon Dioxide 30.0, Anion Gap 7, BUN 10, Creatinine 0.80, Estim Creat Clear Calc 51.01, Est GFR (MDRD) Af Amer 90, Est GFR (MDRD) Non-Af 75, BUN/Creatinine Ratio 12.4, Glucose 152 H, Calcium 8.6, TSH 2.10 05/29/23 03:07: Lactic Acid 1.7 05/29/23 07:24: POC Glucose 259 H 05/29/23 11:38: POC Glucose 322 H Micro: Microbiology 05/29/23 07:47 Urine, Clean Catch Legionella Antigen - Final 05/29/23 07:47 Urine, Clean Catch Streptococcus pneumoniae Antigen (M - Final 05/29/23 02:10 Mucosa - Nasopharyngeal Respiratory Panel (PCR) - Final 05/29/23 02:10 Mucosa - Nasopharyngeal Coronavirus COVID-19 PCR - Final 05/28/23 23:50 Nasal Secretion SARS-CoV-2 & FLU Antigen (Rapid) - Final Radiography Diagnostic Testing: Radiology Impression Chest X-Ray 05/28/23 23:10 IMPRESSION: Worsening bibasilar atelectasis or pneumonia. Electronically Signed: Max Braxton MD at 23:23 EDT , Physical Exam Const alert, oriented x3 and no apparent distress Constitutional Narrative: obese General Appearance: cooperative HEENT normocephalic, head/scalp atraumatic, moist oral mucous membranes and oropharynx normal Eyes PERRL and EOMs intact bilaterally Neck no lymphadenopathy, supple and no JVD Lymph Lymphatic: no lymphadenopathy noted and no lymphedema noted Resp Resp Narrative: Diminished breath sounds bibasally. Bilateral crackles and some wheezing. On 4 L of oxygen. Cardio regular rate, regular rhythm, S1 normal heart sound, S2 normal heart sound and no murmurs GI normal to inspection, nondistended, normoactive bowel sounds, soft to palpation, non-tender and non-distended Extremity normal capillary refill, no clubbing, cyanosis or edema and no calf tenderness General Extremity: no tenderness to palpation of joints or extremities Skin General Skin Exam: no breakdown Neuro CN's II-XII intact bilaterally, no focal motor deficits, no sensory deficits noted and deep tendon reflexes 2+ bilaterally Motor Exam: strength 5/5 throughout Psych thought process normal and cooperative Appearance: appropriate Assessment & Plan Assessment/Plan (1) Acute exacerbation of chronic obstructive pulmonary disease: (2) Bilateral pneumonia: QUALIFIERS: Pneumonia type: due to unspecified organism Lung location: lower lobe of lung Qualified Code(s): J18.9 - Pneumonia, unspecified organism PLAN: Plan #Acute COPD exacerbation and community acquired pneumonia * On IV ceftriaxone and doxycycline. * Breathing treatments bronchodilators. Titrate oxygen to maintain saturation above 90%. * On IV Solu-Medrol. * Urine. Imaging otherwise negative. Respiratory panel was also negative. * #CAD: S/p stents in 2018. Had abnormal stress test in December 2022 and had cardiac cath done which showed patent LAD stent. On Imdur, Plavix, losartan and metoprolol as well as high intensity statin. #Heart failure preserved ejection fraction: Has known EF of 60%. On p.o. Lasix 20 mg daily. #Type 2 diabetes mellitus: On Lantus. Insulin sliding scale. Accu-Cheks ACHS. #Hypertension: On metoprolol, losartan and Imdur. IV hydralazine prn #Anxiety and depression: On Risperdal, citalopram and alprazolam. #Morbid obesity: BMI is 39.8. Complicates acute care, expected recovery and prognosis. #MARK: On BiPAP. DVT prophylaxis: Lovenox. Charges/Coding Visit Charges Inpatient E&M: 56716 Subs Hosp L3
[2023-05-29 17:04] LABS: Bedside Glucose 303 mg/dL (74-106)
[2023-05-29] MEDS: Atorvastatin Calcium 80 MG Tablet PO (19:54)
[2023-05-29] MEDS: Citalopram 40 MG TABLET PO (19:55)
[2023-05-29] MEDS: guaiFENesin 1,200 MG Tablet 1200 MG PO (19:55)
[2023-05-30] VITALS (7 sets, daily range): BP systolic 143–152; BP diastolic 54–67; PULSE 70–80; RESP 16–26; TEMP 36.5–37; O2SAT 99–100; BMI 40.1
[2023-05-30] MEDS: Ipratropium/Albuterol Sulfate 3 ML AMPUL.NEB INHALATION ×3 (02:36→11:08)
[2023-05-30 03:12] LABS: Absolute Lymphocyte Count 1.71 X10^3/uL (0.83-4.51); Absolute Neutrophil Count 10.7 X10^3/uL (2.0-7.7); Basophil# 0.06 X10^3/uL; Basophil% 0.4 % (0-1); Eosinophil# 0.04 X10^3/uL; Eosinophils% 0.3 % (0-5); Hematocrit 35.1 % (37-47); Lymphocyte # 1.71 X10^3/ul (0.83-4.51); Lymphocyte % 12.7 % (19-41); Mean Corp Hgb Conc 31.3 g/dL (32-36); Mean Corpuscular Volume 92.6 fL (81-99); Mean Platelet Vol. 10.6 fl (6.2-12.0); Monocyte# 0.87 X10^3/uL; Monocyte% 6.4 % (0-10); NRBC Flagged by Analyzer 0 % (0-5); Neutrophil # 10.66 X10^3/uL (2.7-7.7); Neutrophil % 78.9 % (47-70); Platelet Count 331 K/mm3 (150-450); RBC Distribution Width CV 12.2 % (11.6-14.6); RBC Distribution Width SD 41.2 fl (35.1-43.9); Red Blood Count 3.79 M/mm3 (4.2-5.4); White Blood Count 13.5 K/mm3 (4.4-11.0)
[2023-05-30 03:57] LABS: Anion Gap 5 (5-15); BUN 13 mg/dL (7-18); Chloride 105 mmol/L (98-107); Creatinine, Serum 0.87 mg/dL (0.55-1.02); EST Glomerular Filtration Rate 68 mL/min (>60); Est Glom Filt Rate - Afr Amer 83 mL/min (>60); Estimated Creatinine Clearance 46.91 ml/min; Glucose 177 mg/dL (74-106); Potassium 3.7 mmol/L (3.5-5.1); Sodium Level 141 mmol/L (136-145)
[2023-05-30 05:58] LABS: Bedside Glucose 318 mg/dL (74-106)
[2023-05-30] MEDS: Enoxaparin 40 MG/0.4 ML Syringe SC (06:54)
[2023-05-30] MEDS: Losartan Potassium 25 MG Tablet PO (10:42)
[2023-05-30] MEDS: Doxycycline 100 MG CAPSULE PO (10:42)
[2023-05-30] MEDS: Isosorbide Mononitrate 60 MG Tablet PO (10:42)
[2023-05-30] MEDS: Potassium Chloride Oral Tablet 20 MEQ PO (10:43)
[2023-05-30] MEDS: Metoprolol Tartrate 25 MG Tablet 12.5 MG PO (10:44)
[2023-05-30] MEDS: Furosemide 20 MG Tablet PO (10:44)
[2023-05-30] MEDS: Pantoprazole Sodium 40 MG Tablet PO (10:46)
[2023-05-30] MEDS: Clopidogrel Bisulfate 75 MG Tablet PO (10:46)
[2023-05-30] MEDS: Insulin Lispro 100 UNIT/ML INSULN.PEN 20 UNIT SC (10:52)
[2023-05-30] MEDS: Insulin Lispro 100 UNIT/ML INSULN.PEN SC (10:53)
[2023-05-30] MEDS: Ceftriaxone 2 GM in 0.9% Normal Saline (50mL MB+) 50 ML IV (11:01)
[2023-05-30 11:12] LABS: Bedside Glucose 233 mg/dL (74-106)
--- NOTE | 2023-05-30 11:16 | PCM.DC.SUM ---
Providers Date of Admission: 05/29/23 Date of Discharge: 05/30/23 Primary Care Physician: Dr. Billy Madera MD Reason For Visit: COPD EXA, PNEUMONIA Diagnosis Discharge Diagnosis (1) Acute exacerbation of chronic obstructive pulmonary disease: Status: Chronic Code(s): J44.1 - Chronic obstructive pulmonary disease with (acute) exacerbation (2) Bilateral pneumonia: Status: Acute Code(s): J18.9 - Pneumonia, unspecified organism Qualifiers: Lung location: lower lobe of lung Pneumonia type: due to unspecified organism Qualified Code(s): J18.9 - Pneumonia, unspecified organism Plan #Acute COPD exacerbation and community acquired pneumonia On IV ceftriaxone and doxycycline. Breathing treatments bronchodilators. Titrate oxygen to maintain saturation above 90%. On IV Solu-Medrol. Urine. Imaging otherwise negative. Respiratory panel was also negative. #CAD: S/p stents in 2018. Had abnormal stress test in December 2022 and had cardiac cath done which showed patent LAD stent. On Imdur, Plavix, losartan and metoprolol as well as high intensity statin. #Heart failure preserved ejection fraction: Has known EF of 60%. On p.o. Lasix 20 mg daily. #Type 2 diabetes mellitus: On Lantus. Insulin sliding scale. Accu-Cheks ACHS. #Hypertension: On metoprolol, losartan and Imdur. IV hydralazine prn #Anxiety and depression: On Risperdal, citalopram and alprazolam. #Morbid obesity: BMI is 39.8. Complicates acute care, expected recovery and prognosis. #MARK: On BiPAP. DVT prophylaxis: Lovenox. Medications at Discharge Home Medications Handicap Placard #1 ea 12/12/20 bisacodyl 5 mg tablet,delayed release (Dulcolax (bisacodyl)) 5 mg PO QHS PRN constipation 30 days #30 tabs 11/13/21 pen needle, diabetic 32 gauge x #50 ea 02/11/22 blood sugar diagnostic (True Metrix Glucose Test Strip) #100 ea 09/11/22 blood-glucose meter (True Metrix Glucose Meter) #1 ea 09/11/22 albuterol sulfate 90 mcg/actuation aerosol inhaler 2 puff inhalation Q6H PRN shortness of breath or wheezing #18 grams 11/06/22 ipratropium 0.5 mg-albuterol 3 mg (2.5 mg base)/3 mL nebulization soln 3 ml inhalation Q4H PRN PRN SOB &/OR WHEEZING #180 mL 11/10/22 cane #1 ea 11/16/22 citalopram 40 mg tablet 40 mg PO QHS depression #90 tabs 11/16/22 risperidone 1 mg tablet 1 mg PO QHS anxiety #90 tabs 12/07/22 isosorbide mononitrate 60 mg tablet,extended release 24 hr 60 mg PO DAILY BP #90 tabs 12/26/22 nitroglycerin 0.4 mg sublingual tablet 0.4 mg sublingual Q5-15M PRN Pain #30 tabs 12/26/22 flash glucose sensor ([employer] Emily 2 Sensor kit) #2 ea 01/06/23 atorvastatin 80 mg tablet 80 mg PO QHS cholesterol 01/26/23 clopidogrel 75 mg tablet 75 mg PO DAILY blood thinner 01/26/23 furosemide 20 mg tablet (Lasix) 20 mg PO DAILY diuretic 01/26/23 losartan 25 mg tablet 25 mg PO DAILY blood pressure 01/26/23 metoprolol tartrate 25 mg tablet 12.5 mg PO BID blood pressure 01/26/23 flash glucose scanning reader ([employer]el[employer] Emily 2 [place]) #1 ea 03/23/23 ondansetron HCl 4 mg tablet 4 mg PO Q6H PRN nausea and vomiting #14 tabs 04/16/23 sucralfate 1 gram tablet (Carafate) 1 g PO TID PRN acid reflux #20 tabs 04/16/23 insulin glargine 100 unit/mL (3 mL) subcutaneous pen (Basaglar KwikPen U-100 Insulin) 36 unit (0.36 mL) subcut DAILY diabetic managment #42 mL 05/06/23 insulin lispro 100 unit/mL subcutaneous pen (Humalog KwikPen (U-100) Insulin) 20 unit (0.2 mL) subcut TID diabetes #72 mL 05/06/23 alprazolam 0.25 mg tablet 0.25 mg PO QHS anxiety #30 tabs 05/12/23 pantoprazole 40 mg tablet,delayed release 40 mg PO BID stomach #180 tabs 10/12/23 potassium chloride 20 mEq tablet,extended release 20 meq PO DAILY #3 tabs 05/25/23 doxycycline hyclate 100 mg tablet 100 mg PO BID #10 tabs 05/30/23 prednisone 20 mg tablet 40 mg (2 x 20 mg) PO DAILY #10 tabs 05/30/23 Hospital Course Operations None Procedures None Summary of Care Provided Minutes Spent on Discharge: 55 Hospital Course: Patient is a 72-year-old female with a past medical history as outlined including history of COPD and chronic respiratory failure on 4 L of oxygen.She was admitted through the ED on 05/29/2023 with a complaint of cough and shortness of breath which have been going on for about a week prior to admission. He had coming to the ED about 2 days prior to admission and was given a Z-Arslan. She took the Z-Arslan but was still not feeling well. He had a cough which is productive of thick yellow and brownish sputum. On admission she was saturating at 95% on 4 L of oxygen. Chest x-ray showed bilateral lower lobe infiltrates. She was placed on IV Solu-Medrol and DuoNebs and placed on ceftriaxone and azithromycin. She was admitted and managed for community-acquired pneumonia as well as COPD exacerbation. She was started on IV ceftriaxone and doxycycline. She was placed on breathing treatment and steroids. Patient however refused IV Solu-Medrol assisted report had a very bad mood. Her breathing improved and she came down to her baseline 4 L of oxygen. Patient felt better and on 05/30/2023, patient requested to be discharged home. He was discharged home on p.o. doxycycline 100 mg twice daily for 5 days as well as p.o. prednisone 40 mg daily for 5 days. Given the patient has stated that she could not take steroids, she said she mentioned cannot take IV Solu-Medrol in the p.o. prednisone worked for her. She is follow-up with her primary care doctor within 1 to 2 weeks. Patient seen and examined prior to discharge. She had no complaints and had an uneventful night. Review of systems otherwise negative. Labs and vitals reviewed. Home. And reconciled. Physical Exam Const alert, oriented x3 and no apparent distress Constitutional Narrative: obese General Appearance: cooperative HEENT normocephalic, head/scalp atraumatic, hearing grossly normal bilaterally, moist oral mucous membranes and oropharynx normal Eyes PERRL and EOMs intact bilaterally Neck no lymphadenopathy, supple and no JVD Lymph Lymphatic: no lymphadenopathy noted and no lymphedema noted Resp Resp Narrative: Diminished breath sounds bibasally. Bilateral crackles and some wheezing. On 4 L of oxygen. Cardio regular rate, regular rhythm, S1 normal heart sound, S2 normal heart sound and no murmurs GI normal to inspection, nondistended, normoactive bowel sounds, soft to palpation, non-tender and non-distended Extremity normal to inspection, full ROM, normal capillary refill, no clubbing, cyanosis or edema and no calf tenderness General Extremity: no tenderness to palpation of joints or extremities Skin no rashes or lesions noted and no wounds General Skin Exam: no breakdown Neuro oriented x3, CN's II-XII intact bilaterally, moves all extremities, no focal motor deficits, no sensory deficits noted and deep tendon reflexes 2+ bilaterally Motor Exam: strength 5/5 throughout Psych thought process normal and cooperative Appearance: appropriate Weight / BMI Weight Weight: 219 lb 12.814 oz Body Mass Index (BMI) 40.1 ABG / Lab / Microbiology Data 05/30/23 03:00 05/30/23 03:00 Laboratory: Laboratory Results - last 24 hr 05/29/23 11:38: POC Glucose 322 H 05/29/23 16:47: POC Glucose 303 H 05/29/23 19:51: POC Glucose 318 H 05/30/23 03:00: WBC 13.5 H, RBC 3.79 L, Hgb 11.0 L, Hct 35.1 L, MCV 92.6, MCH 29.0, MCHC 31.3 L, RDW Std Deviation 41.2, RDW Coeff of Malcom 12.2, Plt Count 331, MPV 10.6, Immature Gran % (Auto) 1.300 H, Neut % (Auto) 78.9 H, Lymph % (Auto) 12.7 L, [place] % (Auto) 6.4, Eos % (Auto) 0.3, Baso % (Auto) 0.4, Absolute Neuts (auto) 10.7 H, Absolute Lymphs (auto) 1.71, Nucleated RBC % 0, Sodium 141, Potassium 3.7, Chloride 105, Carbon Dioxide 31.0, Anion Gap 5, BUN 13, Creatinine 0.87, Estim Creat Clear Calc 46.91, Est GFR (MDRD) Af Amer 83, Est GFR (MDRD) Non-Af 68, BUN/Creatinine Ratio 15.0, Glucose 177 H, Calcium 9.0 05/30/23 10:52: POC Glucose 233 H Microbiology: Microbiology 05/29/23 07:47 Urine, Clean Catch Legionella Antigen - Final 05/29/23 07:47 Urine, Clean Catch Streptococcus pneumoniae Antigen (M - Final 05/29/23 02:10 Mucosa - Nasopharyngeal Respiratory Panel (PCR) - Final 05/29/23 02:10 Mucosa - Nasopharyngeal Coronavirus COVID-19 PCR - Final 05/28/23 23:50 Nasal Secretion SARS-CoV-2 & FLU Antigen (Rapid) - Final D/C Instructions Discharge Diet: Low fat / Low cholesterol Discharge Activity: Return to Normal Activity Weight Bearing Status: Weight bearing as tolerated Call your doctor if you observe: Fever of 101 or Higher, Shortness of breath, Dizziness, Swelling in the ankles and Chest pain Meaningful Use Info Meaningful Use Diagnoses (Choose all that apply): None applicable Discharge Plan Admission Admit Date/Time: 05/29/23 01:22 Primary Reason for Your Visit: COPD exacerbation, pneumonia Attending Provider: Kimberly Armstrong Primary Care Provider: Billy Madera Consulting Providers: Nico Sweet Instructions Patient Instructions: COPD Meds Discharge Orders/Prescriptions Prescriptions: New doxycycline hyclate 100 mg tablet 100 mg PO BID Qty: 10 0RF prednisone 20 mg tablet 40 mg PO DAILY Qty: 10 0RF Continued (DME) Handicap Placard See Rx Instructions .ROUTE .MEDSUPPLY Qty: 1 0RF Rx Instructions: As directed, length of time 3 years citalopram 40 mg tablet 40 mg PO QHS Qty: 90 3RF (DME) cane Device See Rx Instructions .Route Qty: 1 0RF Rx Instructions: As directed pantoprazole 40 mg tablet,delayed release (DR/EC) 40 mg PO BID Qty: 180 2RF isosorbide mononitrate 60 mg tablet extended release 24 hr 60 mg PO DAILY Qty: 90 3RF nitroglycerin 0.4 mg tablet, sublingual 0.4 mg SUBLINGUAL Q5-15M PRN (Reason: Pain) Qty: 30 0RF atorvastatin 80 mg tablet 80 mg PO QHS clopidogrel 75 mg tablet 75 mg PO DAILY losartan 25 mg tablet 25 mg PO DAILY furosemide [Lasix] 20 mg tablet 20 mg PO DAILY metoprolol tartrate 25 mg tablet 12.5 mg PO BID Rx Instructions: sucralfate [Carafate] 1 gram tablet 1 g PO TID PRN (Reason: acid reflux) Qty: 20 0RF ondansetron HCl 4 mg tablet 4 mg PO Q6H PRN (Reason: nausea and vomiting) Qty: 14 0RF potassium chloride 20 mEq tablet extended release 20 meq PO DAILY Qty: 3 0RF bisacodyl [Dulcolax (bisacodyl)] 5 mg tablet,delayed release (DR/EC) 5 mg PO QHS PRN (Reason: constipation) 30 Days Qty: 30 3RF (DME) pen needle, diabetic 32 gauge x needle See Rx Instructions .ROUTE .MEDSUPPLY Qty: 50 0RF Rx Instructions: 4x/day (DME) blood-glucose meter [True Metrix Glucose Meter] Misc See Rx Instructions .Route Qty: 1 0RF Rx Instructions: As directed (DME) True Metrix Glucose Test Strip Strip See Rx Instructions .Route Qty: 100 7RF Rx Instructions: tid albuterol sulfate 90 mcg/actuation HFA aerosol inhaler 2 puff INHALATION Q6H PRN (Reason: shortness of breath or wheezing) Qty: 18 3RF ipratropium-albuterol 0.5 mg-3 mg(2.5 mg base)/3 mL solution for nebulization 3 ml INHALATION Q4H PRN PRN (Reason: SOB &/OR WHEEZING) Qty: 180 6RF risperidone 1 mg tablet 1 mg PO QHS Qty: 90 1RF (DME) FreeStyle Emily 2 Sensor Kit See Rx Instructions .ROUTE .MEDSUPPLY Qty: 2 3RF Rx Instructions: As directed (DME) FreeStyle Emily 2 [place] Misc See Rx Instructions .ROUTE .MEDSUPPLY Qty: 1 0RF Rx Instructions: As directed insulin lispro [Humalog KwikPen Insulin] 100 unit/mL insulin pen 20 unit SC TID Qty: 72 3RF Rx Instructions: Hold if glucose less than 130 mg/dl insulin glargine [Basaglar KwikPen U-100 Insulin] 100 unit/mL (3 mL) insulin pen 36 unit subcut DAILY Qty: 42 3RF Rx Instructions: daily at bedtime alprazolam 0.25 mg tablet 0.25 mg PO QHS Qty: 30 0RF Referrals / Follow Up: Billy Madera MD [Primary Care Provider] - Within 2 Weeks Disposition Disposition (needs filled in before D/C Order can be placed): Home, Self Care Charges/Coding Visit Charges Inpatient E&M: 01994 Disch Hosp >30min
== END 2023-05-30 12:55 | disposition home or self-care (01) | DRG 190 ==
LOC: ED 23:47 → ICU 05-29 01:37
PROVIDERS: Admitting Provider Internal Medicine; Emergency Provider Emergency Medicine; PCP Internal Medicine; Visit Provider Student in an Organized Health Care Education/Training Program
DX: J44.0 Chronic obstructive pulmonary disease with (acute) lower respiratory infection (principal); J44.1 Chronic obstructive pulmonary disease with (acute) exacerbation; I50.32 Chronic diastolic (congestive) heart failure; I11.0 Hypertensive heart disease with heart failure; E11.65 Type 2 diabetes mellitus with hyperglycemia; J96.11 Chronic respiratory failure with hypoxia; E66.01 Morbid (severe) obesity due to excess calories; Z68.41 Body mass index [BMI] 40.0-44.9, adult; Z79.4 Long term (current) use of insulin; J18.9 Pneumonia, unspecified organism; F32.A Depression, unspecified; F41.9 Anxiety disorder, unspecified; G47.33 Obstructive sleep apnea (adult) (pediatric); I25.10 Atherosclerotic heart disease of native coronary artery without angina pectoris; E78.5 Hyperlipidemia, unspecified; Z11.52 Encounter for screening for COVID-19; Z88.1 Allergy status to other antibiotic agents; Z99.81 Dependence on supplemental oxygen; Z79.02 Long term (current) use of antithrombotics/antiplatelets; Z79.899 Other long term (current) drug therapy; Z87.891 Personal history of nicotine dependence; Z95.5 Presence of coronary angioplasty implant and graft
CPT/HCPCS: 96365; 96366; 96367 ×2; 96372 ×2; 96375 ×2; 96376; 99285; 71045; 80048; 82962; 83605; 83735; 83880; 84443; 85025; 87040; 87428; 87449; 87633; 87635; 87641; 93005; 94002; 94640; 94668; 94762; 99221; 99252; J7030; J7050; A4216; G0378; G0463; J0696

== ENCOUNTER 2023-05-30 20:19 | Inpatient (IN) | payer MEDICARE, SELFPAY ==
[2021-11-03 12:08] VITALS: BMI 34.9
[2023-05-30] VITALS (18 sets, daily range): BP systolic 69–259; BP diastolic 54–204; PULSE 24–188; RESP 14–29; TEMP 36.4; O2SAT 42–100; BMI 40.0; BMI 40.6
--- NOTE | 2023-05-30 20:46 | EDS_ITS ---
HPI History of Present Illness Chief Complaint: Shortness of Breath Informant: patient Onset/Context/Timing Onset: Today Context: gradual Timing: Continuous Quality: Positive for Dyspnea on exertion and Wheezing Current Severity: Moderate Maximum Severity: Moderate Worsened by: Exertion, Lying flat and Coughing Relieved by: Rest and Oxygen Associated Symptoms cough Chest Pain: Positive for None Narrative Narrative: 72-year-old female history of COPD on home O2, noncemented diabetes, CHF, CAD with stents. No prior history of DVT or PE. Was hospitalized Wednesday for pneumonia. Was discharged today. States she has been unable to get her medications filled and also does not believe her home nebulizer is working. Today in spite of being on 4 L of oxygen her sats dropped into the 80s and she felt very short of breath. She was transported in by squad. Also states that she has developed hemoptysis. Denies chest pain. Denies fever. No history of DVT or PE in the past. PE Risk Factors: Positive for Recent immobilization; Negative for Cancer, OCP + Smoking + > 35, Prior DVT or PE, Recent surgery or Recent travel Prior similar symptoms: Yes Recent Illness/Hospitalization: Yes PFSH PFSH Medical History Anemia Anxiety and depression Asthma with COPD Atherosclerotic heart disease of [place] coronary artery without angina pectoris Back pain Chest pain Chronic back pain Chronic respiratory failure COPD (chronic obstructive pulmonary disease) Diastolic CHF Former smoker Hepatitis HLD (hyperlipidemia) Hypertension Morbid obesity Obesity MARK treated with BiPAP Psoriasis Smoking greater than 40 pack years Thyroid nodule Type 2 diabetes mellitus Home Medications Handicap Placard #1 ea 12/12/20 [Rx Last Taken Unknown] bisacodyl 5 mg tablet,delayed release (Dulcolax (bisacodyl)) 5 mg PO QHS PRN constipation 30 days #30 tabs 11/13/21 [Rx Last Taken Unknown] pen needle, diabetic 32 gauge x #50 ea 02/11/22 [Rx Last Taken Unknown] blood sugar diagnostic (True Metrix Glucose Test Strip) #100 ea 09/11/22 [Rx Last Taken Unknown] blood-glucose meter (True Metrix Glucose Meter) #1 ea 09/11/22 [Rx Last Taken Unknown] albuterol sulfate 90 mcg/actuation aerosol inhaler 2 puff inhalation Q6H PRN shortness of breath or wheezing #18 grams 11/06/22 [Rx Last Taken Unknown] ipratropium 0.5 mg-albuterol 3 mg (2.5 mg base)/3 mL nebulization soln 3 ml inhalation Q4H PRN PRN SOB &/OR WHEEZING #180 mL 11/10/22 [Rx Last Taken Unknown] cane #1 ea 11/16/22 [Rx Last Taken Unknown] citalopram 40 mg tablet 40 mg PO QHS depression #90 tabs 11/16/22 [Rx Last Taken Unknown] risperidone 1 mg tablet 1 mg PO QHS anxiety #90 tabs 12/07/22 [Rx Last Taken Unknown] isosorbide mononitrate 60 mg tablet,extended release 24 hr 60 mg PO DAILY BP #90 tabs 12/26/22 [Rx Last Taken Unknown] nitroglycerin 0.4 mg sublingual tablet 0.4 mg sublingual Q5-15M PRN Pain #30 tabs 12/26/22 [Rx Last Taken Unknown] flash glucose sensor (Acrinta Emily 2 Sensor kit) #2 ea 01/06/23 [Rx Last Taken Unknown] atorvastatin 80 mg tablet 80 mg PO QHS cholesterol 01/26/23 [History Last Taken Unknown] clopidogrel 75 mg tablet 75 mg PO DAILY blood thinner 01/26/23 [History Last Taken Unknown] furosemide 20 mg tablet (Lasix) 20 mg PO DAILY diuretic 01/26/23 [History Last Taken Unknown] losartan 25 mg tablet 25 mg PO DAILY blood pressure 01/26/23 [History Last Taken Unknown] metoprolol tartrate 25 mg tablet 12.5 mg PO BID blood pressure 01/26/23 [History Last Taken Unknown] flash glucose scanning reader (Acrinta Emily 2 [place]) #1 ea 03/23/23 [Rx Last Taken Unknown] ondansetron HCl 4 mg tablet 4 mg PO Q6H PRN nausea and vomiting #14 tabs 04/16/23 [Rx Last Taken Unknown] sucralfate 1 gram tablet (Carafate) 1 g PO TID PRN acid reflux #20 tabs 04/16/23 [Rx Last Taken Unknown] insulin glargine 100 unit/mL (3 mL) subcutaneous pen (Basaglar KwikPen U-100 Insulin) 36 unit (0.36 mL) subcut DAILY diabetic managment #42 mL 05/06/23 [Rx Last Taken Unknown] insulin lispro 100 unit/mL subcutaneous pen (Humalog KwikPen (U-100) Insulin) 20 unit (0.2 mL) subcut TID diabetes #72 mL 05/06/23 [Rx Last Taken Unknown] alprazolam 0.25 mg tablet 0.25 mg PO QHS anxiety #30 tabs 05/12/23 [Rx Last Taken Unknown] pantoprazole 40 mg tablet,delayed release 40 mg PO BID stomach #180 tabs 05/20/23 [Rx Last Taken Unknown] potassium chloride 20 mEq tablet,extended release 20 meq PO DAILY #3 tabs 05/25/23 [Rx Last Taken Unknown] doxycycline hyclate 100 mg tablet 100 mg PO BID #10 tabs 05/30/23 [Rx Last Taken Unknown] prednisone 20 mg tablet 40 mg (2 x 20 mg) PO DAILY #10 tabs 05/30/23 [Rx Last Taken Unknown] Allergy/AdvReac Type Severity Reaction Status Date / Time amoxicillin [Amoxicillin] Allergy Intermediate Rash Verified 05/28/23 22:22 hydrocodone Allergy Intermediate SWELLING Verified 05/28/23 22:22 gabapentin [From Neurontin] Allergy Shortness Verified 05/28/23 22:22 of breath levofloxacin [From Levaquin] Allergy Hives Verified 05/28/23 22:22 pseudoephedrine HCl Allergy Shortness Verified 05/28/23 22:22 [From Sudafed] of breath red dye Allergy Hives Verified 05/28/23 22:22 prednisone AdvReac Severe mean mood Verified 05/28/23 22:22 clonazepam [From Klonopin] AdvReac Depression Verified 05/28/23 22:22 codeine AdvReac HEADACHE Verified 05/28/23 22:22 Family History Brother Heart disease Mother Colon cancer Heart disease Surgical History History of cholecystectomy History of left heart catheterization (LHC) (~09/23/20) Stented coronary artery (12/28/18) Social History Smoking Status: Former smoker pack-years: 40 how long ago did patient quit smokin year ago alcohol intake: never substance use type: does not use caffeine: Yes Type: carbonated beverages and tea what type of physical activity do you participate in: none ROS ROS ED ROS Narrative Shortness of breath, cough, wheezing. Review of Systems ROS Unobtainable: Denies due to encephalopathy Constitutional Constitutional ED: Denies chills or fever(s) Eyes Eyes: Denies blurry vision ENT ENT ED: Denies ear pain Cardiovascular Cardiovascular: Denies chest pain or palpitations Respiratory/Chest Respiratory/Chest: Reports cough, dyspnea, dyspnea on exertion and sputum Gastrointestinal Gastrointestinal: Denies abdominal pain Genitourinary Genitourinary ED: Denies dysuria or hematuria Integumentary Denies abscess Neurologic Neurologic: Denies headache(s) Psychiatric Psychiatric: Denies anxiety or depression Endocrine Endocrinology: Denies cold intolerance Hematologic/Lymphatic Hematologic/Lymphatic: Denies easy bleeding or easy bruising Allergic/Immunologic Allergic/Immunologic ED: Denies mouth swelling, tongue swelling or urticaria EXAM Physical Exam Narrative Exam Narrative: 72-year-old female vital signs are stable. She is on oxygen on 4 L here she is 96%. H EENT exam unremarkable. Neck nontender no JVD. Lungs expiratory wheezing throughout. Equal symmetrical. Heart tachycardic rate of 107 no murmur. Chest wall nontender. Abdomen soft nontender. Moving all 4 extremities. Calves are nontender without edema or cords. Neurologically she is awake and alert with no focal motor deficits. She is anxious. Const Vital Signs: 05/30/23 20:20 05/30/23 20:29 05/30/23 20:57 Temperature 97.6 F L Temperature Source Oral Pulse Rate 107 H 96 Pulse Rate [1] Pulse Rate [6] Pulse Rate [7] Respiratory Rate 29 H 20 H Respiratory Rate [7] Respiratory Effort Short of Breath Labored Respiratory Depth Shallow Respiratory Pattern Tachypnea Tachypnea Blood Pressure 193/91 H Blood Pressure [7] Blood Pressure Mean 125 Blood Pressure Position Blood Pressure Location Pulse Ox 96 Oxygen Delivery Method Nasal Cannula Nasal Cannula Oxygen Flow Rate (L/min) 4 4 Fraction of Inspired Oxygen (FIO2) 05/30/23 20:44 05/30/23 22:26 05/30/23 22:28 Temperature Temperature Source Pulse Rate 144 H Pulse Rate [1] 24 L Pulse Rate [6] 188 H Pulse Rate [7] 144 H Respiratory Rate 16 Respiratory Rate [7] 22 H Respiratory Effort Respiratory Depth Respiratory Pattern Blood Pressure Blood Pressure [7] 149/97 H Blood Pressure Mean Blood Pressure Position Blood Pressure Location Pulse Ox 96 92 Oxygen Delivery Method Nasal Cannula Nasal Cannula Ambu-Bag Oxygen Flow Rate (L/min) 4 4 Fraction of Inspired Oxygen (FIO2) 05/30/23 22:48 05/30/23 22:11 05/30/23 22:55 Temperature Temperature Source Pulse Rate 150 H 127 H 137 H Pulse Rate [1] Pulse Rate [6] Pulse Rate [7] Respiratory Rate 18 Respiratory Rate [7] Respiratory Effort Respiratory Depth Respiratory Pattern Normal Blood Pressure 112/101 H Blood Pressure [7] Blood Pressure Mean 104 Blood Pressure Position Supine Blood Pressure Location Left Arm Pulse Ox 100 100 Oxygen Delivery Method Oxygen Flow Rate (L/min) Fraction of Inspired Oxygen (FIO2) 100 90 Positive well nourished, well developed and obese; Negative for cachectic, contractures or unkempt General Appearance ED: well developed and NAD; Negative for unkempt, cachectic, contractures or pallor Nutritional Appearance: obese; Negative for cachectic HEENT Reports moist mucous membranes; Denies dry mucous membranes atraumatic; Negative for trauma or tenderness Mouth ED: No dry mucous membranes Mouth: No dry mucous membranes Eyes PERRL and EOMs intact bilaterally General Eye ED: Negative for pale conjunctiva or scleral icterus Neck no lymphadenopathy, supple, no meningeal signs and no JVD General: Negative for tenderness Lymph Lymphatic: Negative for other Chest Wall Chest: Negative for other Resp No normal respiratory effort and No clear to auscultation bilaterally Auscultation: wheezes Cardio regular rhythm, S1 normal heart sound, S2 normal heart sound and no murmurs; Negative for regular rate Rate: tachycardic GI non-tender, non-distended and no masses Auscultation: normoactive bowel sounds Palpation: soft; Negative for tender Bladder / Kidney Exam: No other Back/Spine no CVA tenderness and normal to inspection General Back: Negative for CVA tenderness Extremity normal to inspection General Extremety ED: Negative for edema or tenderness General Extremity: Negative for edema Neuro oriented x3 and CN's II-XII intact bilaterally Sensorium / Orientation: alert, oriented to person, oriented to place and oriented to time; Negative for orientation impaired, confused or lethargic Speech: speech normal Motor Exam: strength 5/5 throughout Psych mental status grossly normal Appearance: Negative for unkempt Attitude: No agitated Mood & Affect: anxious; Negative for depressed or tearful Thought Process: normal thought process Skin no wounds and skin turgor normal General Skin Exam: Negative for jaundice or pallor Lesions: no lesions Rashes: no rashes Trauma: Negative for abrasion or laceration MDM MDM MDM Narrative Medical decision making narrative: 72-year-old female with COPD recently hospitalized and discharged today for pneumonia. Unable to get her meds filled. Nebulizer may not be working at home. And hypoxia at home. She definitely has expiratory wheezing at this time. She also had hemoptysis she is never had a history of DVT or PE she is on no blood thinners and I am aware of. She had recent hospitalization. She undergo cardiac/respiratory work-up along with a D-dimer. She will be treated with Solu-Medrol IV DuoNeb and albuterol aerosols and reassess. Patient is D-dimer was elevated. Above her age and normal limit. She was sent down for a CTA of the chest which she has had before. During the CTA she became more short of breath. They completed the study her sats were in the 90s. She progressively worsened as they were bringing her back to the emergency department. When she arrived emergency department she was having respiratory distress. Patient was read on her chest and face. Then stopped breathing. We started bagging her and there is no palpable carotid or femoral pulse. CPR was begun. On the monitor she had pulses like her activity and was treated with epinephrine a total of 3 times. CPR was continued. I intubated the patient on the first attempt using a 7 and half ET tube. Good breath sounds were heard carolyne aterally. As was good color change in her sat progressively improved to 95 and then 100%. Using the ultrasound we saw good cardiac activity and femoral pulse CPR was ceased. She is now on the ventilator. Removed her to room 1. She has been given Benadryl in case of allergic reaction but she is already been given epinephrine 3 times due to her cardiopulmonary arrest and PEA. She was also given Solu-Medrol due to her COPD 1 to 2 hours prior to her CTA. She is currently on a propofol drip. OG has been placed. [place] has been placed. This may have been an anaphylactic reaction but it she has no history of contrast dye. Prior to the CAT scan she was pretreated with Solu-Medrol for her COPD at least an hour prior to the CAT scan. She is also recently been on steroids. Repeat exam patient is significantly improved on the ventilator. Her vital signs are stabilizing she is tachycardic from the epinephrine. Blood pressure is also elevated due to the epinephrine. The swelling of her tongue and the redness of her skin have both significantly improved. History & Record Review Discussion w/independent historian: EMS personnel and Patient Additional record(s) reviewed:: Prior inpatient record, Prior outpatient record, Prior ED visit and Prior labs Lab Data Attestation: I reviewed the patient's lab results. Lab results narrative: CBC shows white count 12.4. H&H 10.9 and 34.8. Platelets 368. Electrolytes show gap of 7. Normal BUN of 15 creatinine 0.8. Glucose 201. Troponin is normal at 20. D-dimer is just elevated 0.72. CTA ordered. Chest x-ray shows chronic changes. When compared to prior labs these labs the patient's baseline. No significant acute changes. ABG: Post intubation and was only on the ventilator about 5 minutes prior to the ABG being obtained. Patient's pH was 7.18, PCO2 67 and PO2 of 390. Her sat is 99%. Labs: Laboratory Results - last 24 hr 05/30/23 20:30 WBC 12.4 H RBC 3.78 L Hgb 10.9 L Hct 34.8 L MCV 92.1 MCH 28.8 MCHC 31.3 L RDW Std Deviation 41.3 RDW Coeff of [place] 12.4 Plt Count 368 MPV 10.6 Immature Gran % (Auto) 1.100 H Neut % (Auto) 76.7 H Lymph % (Auto) 14.6 L [place] % (Auto) 5.4 Eos % (Auto) 1.4 Baso % (Auto) 0.8 Absolute Neuts (auto) 9.5 H Absolute Lymphs (auto) 1.80 Nucleated RBC % 0 D-Dimer Quant (PE/DVT) 0.72 H* Sodium 139 Potassium 3.5 Chloride 102 Carbon Dioxide 30.0 Anion Gap 7 BUN 15 Creatinine 0.84 Estim Creat Clear Calc 48.58 Est GFR (MDRD) Af Amer 86 Est GFR (MDRD) Non-Af 71 BUN/Creatinine Ratio 17.9 Glucose 201 H Calcium 9.5 Troponin I High Sens 20 ABG Data ABG results: ABG 05/30/23 23:03 Specimen Type ART Sample Site L Radial pH 7.18 L* Bicarbonate Actual 25.5 Total CO2 28 Base Excess -3 L O2 Saturation 100 H O2 % 100.0 ABG pCO2 67.9 H* ABG pO2 391 H* Dima Test N/A Respiration Rate 14 O2 Delivery Device Adult Vent Vent Mode AC Tidal Volume 450.0 POC PEEP 5 Crit Call To/Read Back Yes Blood Gas Notified Whom Dr Holland Blood Gas Notified Time 23:05:17 Radiography Chest X-Ray - ED: 1 View, Read by ED Physician, Read by Radiologist, Heart, Lungs, Mediastinum, Bony Structures, No Acute Disease and Chronic Changes Diagnostic Testing: Clinical Impression(s) from Imaging Studies Chest X-Ray 05/30/23 21:05 IMPRESSION: Normal x-ray examination of the chest. Electronically Signed: Max Braxton MD at 21:21 EDT , Chest x-ray, portable, single view shows normal cardiac silhouette mediastinum. Chronic changes. Cannot rule out a right lower lobe infiltrate but that is been seen on prior. No significant change from recent chest x-rays. Interpreted both by myself and the radiologist. Patient had respiratory failure. So a second chest x-ray was obtained postintubation. Chest x-ray #2: Portable, single view, interpreted by myself. Shows appropriate placement of the ET tube above the susi. Bilateral well ventilated lung mera. OG in place in the stomach. Rhythm Strip Rhythm Strip: Sinus Rhythm Rate: 92 Ectopy: None EKG Initial EKG: Attestation: I personally reviewed and interpreted this EKG as follows: Interpretation: Sinus Rhythm and No Acute Injury Pattern Comments: Normal sinus rhythm rate of 92 no acute change from recent EKG from March 28. Prior EKG tracings: available for review Prior: Unchanged Follow-up EKG: Attestation: I personally reviewed and interpreted this EKG as follows: Interpretation: Atrial Fibrillation Comments: After the patient had cardiopulmonary arrest and was treated with epinephrine. She was intubated. A second EKG was obtained once she regained pulses. And the patient was much more stable on the ventilator. Second EKG shows A-fib RVR rate of 138. There is rate dependent ST depression in leads V3, V4, V5 and V6. No ST elevation. Prior: Changed Procedures Intubations Intubation Method: orotracheal Intubation Verification: Positive color change Intubation Complications: no complications (Respiratory failure. ET intubation. Pretreated with succinylcholine and etomidate. Intubated on the first attempt. Good bilateral breath sounds. Good color change. Pulse ox quickly improved to the mid 90s after intubation. Bilateral breath sounds were heard.) Other Procedures Procedure(s): CPR during cardiopulmonary arrest. Post cardiopulmonary arrest. Patient was in A-fib RVR. Heart rate was 137 ~160. Her pressure was in the 90s. Due to her hypotension and knowing that she just converted to A-fib RVR I felt it was best to cardiovert her. Patient was already on a propofol drip and sedated. Pacer pads were placed. She was shocked 1 time at 300 J. Cardioverted to a sinus rhythm immediately. Critical Care Time Critical Care Time: Yes Critical care time (excluding procedures): 30-74 minutes, Including time spent:, Discussing w/Patient &/or Family/Nutrition Assistant, Discussing w/Consultants, Arr anging Admission or Transfer, Performing Direct Patient Care at Bedside and - (45 min) Discharge Plan Triage Chief Complaint: Shortness of Breath ED Provider: Jacky Holland Dx/Rx/DC Orders Clinical Impression: Respiratory failure, COPD exacerbation, Anaphylaxis, History of diabetes mellitus, History of CAD (coronary artery disease), Endotracheally intubated, Cardiac arrest with pulseless electrical activity, Atrial fibrillation with rapid ventricular response Primary Care Provider: Billy Madera Disposition Disposition: Acute Care Hospital [facility]
[2023-05-30] MEDS: Albuterol 2.5 MG/3 ML VIAL.NEB. INHALATION (20:54)
[2023-05-30] MEDS: Ipratropium/Albuterol Sulfate 3 ML AMPUL.NEB INHALATION (20:54)
[2023-05-30 20:58] LABS: Absolute Neutrophil Count 9.5 X10^3/uL (2.0-7.7); Basophil% 0.8 % (0-1); Eosinophil# 0.17 X10^3/uL; Eosinophils% 1.4 % (0-5); Hematocrit 34.8 % (37-47); Hemoglobin 10.9 g/dL (12.0-15.0); Lymphocyte % 14.6 % (19-41); Mean Corp Hgb Conc 31.3 g/dL (32-36); Mean Corpuscular Hgb 28.8 pg (27.0-32.0); Mean Corpuscular Volume 92.1 fL (81-99); Mean Platelet Vol. 10.6 fl (6.2-12.0); Monocyte# 0.67 X10^3/uL; Monocyte% 5.4 % (0-10); NRBC Flagged by Analyzer 0 % (0-5); Neutrophil # 9.49 X10^3/uL (2.7-7.7); Neutrophil % 76.7 % (47-70); Platelet Count 368 K/mm3 (150-450); RBC Distribution Width CV 12.4 % (11.6-14.6); RBC Distribution Width SD 41.3 fl (35.1-43.9); Red Blood Count 3.78 M/mm3 (4.2-5.4); White Blood Count 12.4 K/mm3 (4.4-11.0)
--- NOTE | 2023-05-30 21:05 | RAD_ITS ---
STUDY: X-RAY CHEST REASON FOR EXAM: Female, 72 years old. chest pain TECHNIQUE: Single AP portable view of the chest. COMPARISON: 05/28/2023 FINDINGS: The lungs are clear and expanded. There is no demonstrated pleural abnormality. Normal size heart. Normal mediastinum and wallace. Normal visualized pulmonary arteries. Normal visualized aortic arch and descending thoracic aorta. Normal visualized thoracic spine. Normal visualized ribs, clavicles, and shoulders. There is no demonstrated abnormality of the visualized soft tissue structures of the upper abdomen. RAD/Chest 1 View (Portable) IMPRESSION: Normal x-ray examination of the chest. Electronically Signed: Max Braxton MD at 21:21 EDT ,
[2023-05-30] MEDS: MethylPREDNISolone 125 MG/2 ML Vial IV (21:06)
[2023-05-30 21:25] LABS: Anion Gap 7 (5-15); BUN 15 mg/dL (7-18); BUN/Creat Ratio 17.9 RATIO (10-20); Calcium,Total 9.5 mg/dL (8.5-10.1); Chloride 102 mmol/L (98-107); Creatinine, Serum 0.84 mg/dL (0.55-1.02); EST Glomerular Filtration Rate 71 mL/min (>60); Est Glom Filt Rate - Afr Amer 86 mL/min (>60); Estimated Creatinine Clearance 48.58 ml/min; Glucose 201 mg/dL (74-106); Potassium 3.5 mmol/L (3.5-5.1); Sodium Level 139 mmol/L (136-145); Troponin-I HS 20 pg/mL (3.0-54.0)
[2023-05-30 21:29] LABS: D-Dimer Quantitative (DVT/PE) 0.72 FEU/ug/m (0.27-0.49)
--- NOTE | 2023-05-30 21:31 | CT_ITS ---
INDICATION: dyspnea and hypoxia EXAMINATION: - CTA Chest WO/W Contrast Injection A radiation dose optimization technique was used for this scan. Radiation CTDIvol 12.33 Radiation DLP 543.32 COMPARISON: Chest CT 05/09/2021. FINDINGS: Contrast enhanced serial CTA axial images through the chest with coronal and sagittal reformatted series. Additional dedicated coronal and sagittal MIP reformatted series provided as well. IV Contrast dosage and agent: 100 cc [id number] IV. MEDIASTINUM: No acute thoracic aortic abnormality. Distal pulmonary artery branch vessel evaluation is suboptimal secondary to timing of contrast bolus as well as respiratory motion, however, there are no obvious proximal pulmonary artery filling defects. Bilateral hypoattenuating thyroid lesions with dominant 18 mm lesion on the right. Cardiomegaly. LUNG PARENCHYMA: Bilateral streaky and linear atelectasis. PLEURA: Trace bilateral pleural effusions. No pneumothorax. BONES: Small hepatic cysts. UPPER ABDOMEN: Splenomegaly, incompletely imaged, although new from 2014. CT/CTA Chest W/WO Contrast IMPRESSION: Bilateral streaky and linear atelectasis. Trace bilateral pleural effusions. Distal pulmonary artery branch vessel evaluation is suboptimal secondary to timing of contrast bolus as well as respiratory motion, however, there is no obvious proximal pulmonary embolus. Bilateral hypoattenuating thyroid lesions with dominant 18 mm lesion on the right. Splenomegaly new from 2014. Electronically Signed: Bolivar Byrd MD at 0:51 EDT ,
--- NOTE | 2023-05-30 21:58 | NURSING ---
PT in CT reported to have dropped sats and become unresponsive. Brought back to room. DR notified. Placed on monitor 72 sinus rythum. PUlse ox on 4l n/c 44% placed on non rebreather. pulse ox increased to 66%. DR Chapman at bedside. decidsion to tube
[2023-05-30] MEDS: Succinylcholine Chloride 200 MG/10 ML SYRINGE 100 MG IV (22:04)
[2023-05-30] MEDS: Etomidate 20 MG/10 ML Vial IV (22:04)
--- NOTE | 2023-05-30 22:25 | RAD_ITS ---
INDICATION: post intubation EXAMINATION/TECHNIQUE: X-RAY - XR Chest 1 View COMPARISON: Chest radiograph and chest CT earlier same day. Findings: 2 frontal views of the chest. Endotracheal tube tip is approximately 71 mm from the susi. Enteric tube tip terminates off the left upper quadrant inferior margin of the image, likely proximal to mid stomach. LUNG PARENCHYMA: No acute focal airspace disease or mass lesion. PLEURA: No pleural effusion. No pneumothorax. HEART/[place]: Cardiomediastinal silhouette is borderline enlarged in this portable examination. BONES: Osseous structures are unremarkable for age. RAD/Chest 1 View (Portable) IMPRESSION: Endotracheal tube tip is approximately 71 mm from the susi. Chest with no acute disease. Electronically Signed: Bolivar Byrd MD at 0:53 EDT ,
[2023-05-30] MEDS: Propofol 10MG/Ml 1,000 MG/100 ML Bottle 6 MG CONT INF (22:28)
--- NOTE | 2023-05-30 22:35 | NURSING ---
coremaker experimental attempting to contact family at this time.
[2023-05-30] MEDS: DiphenhydrAMINE 50 MG/ML Syringe IV (22:39)
--- NOTE | 2023-05-30 22:42 | ED.RN ---
attempted to call family, Farideh and the number that was listed is not a working number.Cadet Deck and Tracie Castillo attempted to find family number.
--- NOTE | 2023-05-30 22:56 | PCM.HP.STD ---
HPI - General General Date of Admission: 05/30/23 Date of Service: 05/30/23 Chief Complaint: Shortness of breath, hypoxia, increased oxygen requirement. CODE BLUE after CTPA HPI Narrative TIM CEDILLO, is a 72 F who was discharged today in the morning then went home breathing on baseline 4 L of oxygen. In the evening tonight, her pulse ox dropped to 80s on 4 L of oxygen. She was brought by EMS for difficulty breathing getting worse and EMS put on a nonrebreather 12 L of oxygen and brought to ED.Prior to that she was admitted on 05/29/2023 and discharged today after COPD exacerbation from pneumonia and discharged on doxycycline and prednisone. EMS vitals shows blood pressure 226/96 respiratory rate 26 and heart rate 132/min.Blood pressure was elevated during previous admission too. ED course: In ED, her blood pressure was initially high 193/91, respiratory rate 29/min. She was given IV Solu-Medrol and COPD treatment therefore oxygen requirement came down to baseline 4 L and blood pressure was normalized. Then she was sent for CTPA for elevated D-dimer 0.72. Age-adjusted D-dimer 0.71. During CT scan patient became more short of breath and her saturation dropped he became respiratory rate and started on umbo bagging. Then she started breathing and no palpable pulses therefore CODE BLUE was called and CPR was started. During CPR rhythm was PEA, 3 doses of epinephrine was given and lasted for about 14 minutes with ROSC. She was intubated during code and started on propofol drip. Billings catheter and OG was inserted. I ordered for fentanyl drip. As per the ER physician there is suspicion of anaphylactic reaction but she did not had prior history of contrast and she also got Solu-Medrol prior to that and she will also need steroid during recent admission. In ED also she was tachycardic and went into A-fib probably due to epinephrine given during CODE BLUE. ED physician also noticed swelling of tongue and redness of his skin during CODE BLUE message significantly improved later in the ER. She was converted with 300 J in ER to sinus rhythm. Patient is further admitted in ICU for further care and evaluation [facility] Medical History Anemia Anxiety and depression Asthma with COPD Atherosclerotic heart disease of [place] coronary artery without angina pectoris Back pain Chest pain Chronic back pain Chronic respiratory failure COPD (chronic obstructive pulmonary disease) Diastolic CHF Former smoker Hepatitis HLD (hyperlipidemia) Hypertension Morbid obesity Obesity MARK treated with BiPAP Psoriasis Smoking greater than 40 pack years Thyroid nodule Type 2 diabetes mellitus Home Medications Handicap Placard #1 ea 12/12/20 [Rx Last Taken Unknown] bisacodyl 5 mg tablet,delayed release (Dulcolax (bisacodyl)) 5 mg PO QHS PRN constipation 30 days #30 tabs 11/13/21 [Rx Last Taken Unknown] pen needle, diabetic 32 gauge x #50 ea 02/11/22 [Rx Last Taken Unknown] blood sugar diagnostic (True Metrix Glucose Test Strip) #100 ea 09/11/22 [Rx Last Taken Unknown] blood-glucose meter (True Metrix Glucose Meter) #1 ea 09/11/22 [Rx Last Taken Unknown] albuterol sulfate 90 mcg/actuation aerosol inhaler 2 puff inhalation Q6H PRN shortness of breath or wheezing #18 grams 11/06/22 [Rx Last Taken Unknown] ipratropium 0.5 mg-albuterol 3 mg (2.5 mg base)/3 mL nebulization soln 3 ml inhalation Q4H PRN PRN SOB &/OR WHEEZING #180 mL 11/10/22 [Rx Last Taken Unknown] cane #1 ea 11/16/22 [Rx Last Taken Unknown] citalopram 40 mg tablet 40 mg PO QHS depression #90 tabs 11/16/22 [Rx Last Taken Unknown] risperidone 1 mg tablet 1 mg PO QHS anxiety #90 tabs 12/07/22 [Rx Last Taken Unknown] isosorbide mononitrate 60 mg tablet,extended release 24 hr 60 mg PO DAILY BP #90 tabs 12/26/22 [Rx Last Taken Unknown] nitroglycerin 0.4 mg sublingual tablet 0.4 mg sublingual Q5-15M PRN Pain #30 tabs 12/26/22 [Rx Last Taken Unknown] flash glucose sensor (FreeStyle Emily 2 Sensor kit) #2 ea 01/06/23 [Rx Last Taken Unknown] atorvastatin 80 mg tablet 80 mg PO QHS cholesterol 01/26/23 [History Last Taken Unknown] clopidogrel 75 mg tablet 75 mg PO DAILY blood thinner 01/26/23 [History Last Taken Unknown] furosemide 20 mg tablet (Lasix) 20 mg PO DAILY diuretic 01/26/23 [History Last Taken Unknown] losartan 25 mg tablet 25 mg PO DAILY blood pressure 01/26/23 [History Last Taken Unknown] metoprolol tartrate 25 mg tablet 12.5 mg PO BID blood pressure 01/26/23 [History Last Taken Unknown] flash glucose scanning reader (SigmaQuest Emily 2 [place]) #1 ea 03/23/23 [Rx Last Taken Unknown] ondansetron HCl 4 mg tablet 4 mg PO Q6H PRN nausea and vomiting #14 tabs 04/16/23 [Rx Last Taken Unknown] sucralfate 1 gram tablet (Carafate) 1 g PO TID PRN acid reflux #20 tabs 04/16/23 [Rx Last Taken Unknown] insulin glargine 100 unit/mL (3 mL) subcutaneous pen (Basaglar KwikPen U-100 Insulin) 36 unit (0.36 mL) subcut DAILY diabetic managment #42 mL 05/06/23 [Rx Last Taken Unknown] insulin lispro 100 unit/mL subcutaneous pen (Humalog KwikPen (U-100) Insulin) 20 unit (0.2 mL) subcut TID diabetes #72 mL 05/06/23 [Rx Last Taken Unknown] alprazolam 0.25 mg tablet 0.25 mg PO QHS anxiety #30 tabs 05/12/23 [Rx Last Taken Unknown] pantoprazole 40 mg tablet,delayed release 40 mg PO BID stomach #180 tabs 05/20/23 [Rx Last Taken Unknown] potassium chloride 20 mEq tablet,extended release 20 meq PO DAILY #3 tabs 05/25/23 [Rx Last Taken Unknown] doxycycline hyclate 100 mg tablet 100 mg PO BID #10 tabs 05/30/23 [Rx Last Taken Unknown] prednisone 20 mg tablet 40 mg (2 x 20 mg) PO DAILY #10 tabs 05/30/23 [Rx Last Taken Unknown] Allergy/AdvReac Type Severity Reaction Status Date / Time amoxicillin [Amoxicillin] Allergy Intermediate Rash Verified 05/28/23 22:22 hydrocodone Allergy Intermediate SWELLING Verified 05/28/23 22:22 gabapentin [From Neurontin] Allergy Shortness Verified 05/28/23 22:22 of breath levofloxacin [From Levaquin] Allergy Hives Verified 05/28/23 22:22 pseudoephedrine HCl Allergy Shortness Verified 05/28/23 22:22 [From Sudafed] of breath red dye Allergy Hives Verified 05/28/23 22:22 prednisone AdvReac Severe mean mood Verified 05/28/23 22:22 clonazepam [From Klonopin] AdvReac Depression Verified 05/28/23 22:22 codeine AdvReac HEADACHE Verified 05/28/23 22:22 Family History Brother Heart disease Mother Colon cancer Heart disease Surgical History History of cholecystectomy History of left heart catheterization (LHC) (~09/23/20) Stented coronary artery (12/28/18) Social History Smoking Status: Former smoker pack-years: 40 how long ago did patient quit smokin year ago alcohol intake: never substance use type: does not use caffeine: Yes Type: carbonated beverages and tea what type of physical activity do you participate in: none ROS ROS Narrative Patient was intubated on ventilator before I saw her. Please see HPI. Patient has Billings catheter with clear urine about 300 mL. Review of Systems ROS Unobtainable: due to endotracheal tube Vital Signs Vital Signs Vital Signs: 05/30/23 20:20 05/30/23 20:29 05/30/23 20:57 Temperature 97.6 F L Temperature Source Oral Pulse Rate 107 H 96 Respiratory Rate 29 H 20 H Respiratory Effort Short of Breath Labored Respiratory Depth Shallow Respiratory Pattern Tachypnea Tachypnea Blood Pressure 193/91 H Blood Pressure Mean 125 Pulse Ox 96 Oxygen Delivery Method Nasal Cannula Nasal Cannula Oxygen Flow Rate (L/min) 4 4 05/30/23 20:44 Temperature Temperature Source Pulse Rate Respiratory Rate Respiratory Effort Respiratory Depth Respiratory Pattern Blood Pressure Blood Pressure Mean Pulse Ox 96 Oxygen Delivery Method Nasal Cannula Oxygen Flow Rate (L/min) 4 Weight Weight: 218 lb 14.704 oz Body Mass Index (BMI) 40.0 Physical Exam Narrative General: Sedated on propofol drip. Intubated. HEENT: Atraumatic, PERRLA, EOMI, Normocephalic Oral: ET and OG tube. Neck: Supple, No JVD, Negative Carotid Bruits Lungs: Air entry diminished in bilateral lung bases. No wheezing. On ventilator, AC control mode. Cardiovascular: Transient A-fib after CODE BLUE. Electrocardioversion with 300 J.. Sinus rhythm, no murmurs Abdomen: Bowel Sounds Present, Soft, Non Tender, Non-Distended : Billings catheter, clear urine. No renal angle tenderness. No suprapubic tenderness. Extremities: No edema, Capillary Refill Less than 3 Seconds Skin: No rashes, No breakdown Musculoskeletal: No Tenderness to Palpation of Joints or Extremities. Bilateral knee and hip joints arthritis. Neurological: Sedated, complete neuro exam unobtainable. Previously no acute focal neurological deficit. Psych/Mental Status: Sedated. Results Lab / Micro Data 05/30/23 20:30 05/30/23 20:30 Labs: Laboratory Results - last 24 hr 05/30/23 20:30: WBC 12.4 H, RBC 3.78 L, Hgb 10.9 L, Hct 34.8 L, MCV 92.1, MCH 28.8, MCHC 31.3 L, RDW Std Deviation 41.3, RDW Coeff of Malcom 12.4, Plt Count 368, MPV 10.6, Immature Gran % (Auto) 1.100 H, Neut % (Auto) 76.7 H, Lymph % (Auto) 14.6 L, Grand % (Auto) 5.4, Eos % (Auto) 1.4, Baso % (Auto) 0.8, Absolute Neuts (auto) 9.5 H, Absolute Lymphs (auto) 1.80, Nucleated RBC % 0, D-Dimer Quant (PE/DVT) 0.72 H*, Sodium 139, Potassium 3.5, Chloride 102, Carbon Dioxide 30.0, Anion Gap 7, BUN 15, Creatinine 0.84, Estim Creat Clear Calc 48.58, Est GFR (MDRD) Af Amer 86, Est GFR (MDRD) Non-Af 71, BUN/Creatinine Ratio 17.9, Glucose 201 H, Calcium 9.5, Troponin I High Sens 20 Rhythm Strip Rhythm Strip: Sinus Rhythm Rate: 92 Ectopy: None Radiology Impression Chest X-Ray 05/30/23 21:05 IMPRESSION: Normal x-ray examination of the chest. Electronically Signed: Max Braxton MD at 21:21 EDT , Assessment & Plan Assessment/Plan (1) Atrial fibrillation with rapid ventricular response: (2) Cardiac arrest with pulseless electrical activity: (3) COPD exacerbation: PLAN: Plan In the morning. This 72-year-old female came to ED after today's discharge with increased respiratory distress, tachypnea and hypoxia and then CODE BLUE blue after CTA chest, successfully ROSC and then admitted in ICU. 1. Acute cardiopulmonary arrest after CTA chest concern for possible anaphylactic reaction from IV contrast: Patient is being admitted in ICU. In her allergy list it is mention prednisone causes some mood changes which is known side effect of prednisone/steroid and hives with red dye. ER physician also said patient tongue was swollen and redness of the skin which improved later in the ED. Continue IV Solu-Medrol. Patient is intubated. Had successful ACLS/BLS lasted for 14 minutes with 3 doses of epinephrine. ABG 7.18/68/391 bicarb 28. Bicarb in BMP is 13. Investment Banking Analyst consulted 2. Acute combined respiratory failure on chronic hypoxic respiratory failure due to acute exacerbation of COPD most likely due to bilateral lower lobes pneumonia organism unspecified, prior to present admission. : Continue bronchodilators DuoNeb every 4 hourly, IV Solu-Medrol, incentive/Pep after extubation, Mucinex. Prior to intubation, chest x-ray initially reviewed shows no acute infiltrate and reported normal. Started on IV ceftriaxone. Continue doxycycline. Patient completed azithromycin course. Patient just had COVID-19 PCR reported normal, respiratory panel normal and urinary antigens normal on 05/29/2023. She had COVID-vaccine and booster. Blood cultures x2 on 05/[address] still pending. Patient follows Dr. Nuno in pulmonary clinic. 3. Transient A-fib after ACLS with history of CAD status post PCI ostial diagonal and mid LAD 12/26/2018 : Patient has been in sinus rhythm during previous EKG and EKG done prior to CODE BLUE. It is normal sinus rhythm 92 bpm. After CODE BLUE it was A-fib 138 bpm, QTc 4 8 8 ms. QRS 84 ms. Repeat 2D echo as patient had cardiopulmonary arrest. Patient was successfully cardioverted to sinus rhythm after 300 J by ER physician. Currently in sinus rhythm. Patient was admitted for unstable angina in December 2022 and at that time cardiac cath was done for abnormal stress test. Cardiac cath showed ostial lesion of jailed diagonal branch, patent LAD stent therefore no PCI was done. Continue losartan, metoprolol, isosorbide and Plavix. #3. Chronic Diastolic CHF: 08/11/2021 echocardiogram with normal LV size, moderate concentric LVH, LV systolic function normal, EF 60%, pulmonary artery systolic pressure 40 mmHg, stage I diastolic dysfunction. Patient is on Lasix 20 mg along with potassium supplement continued. Patient not showing clinical features of acute heart failure exacerbation. #5. Diabetes mellitus type II: Continue home dose of Lantus insulin and lispro insulin. Currently NPO. accu checks every 6 hourly with Humalog sliding scale coverage. Start tube feed in the morning if still not extubated. #6. Hypertension: Blood pressure was high in the ED. BP still 156/97. Continue home regimen including metoprolol, losartan, isosorbide. #7. Hyperlipidemia: Continue home statin regimen. Fasting profile in December 2022 within normal limit LDL 44, HDL 55. Continue high intensity atorvastatin. #8. Chronic normocytic anemia: Admission hemoglobin 10.9 g. On baseline. Platelet count normal. #9. Anxiety and depression: Hold risperidone, citalopram, alprazolam home regimen as patient is sedated on propofol and fentanyl drip #10. Morbid Obesity: Weight loss and lifestyle changes encouraged. #11. Other comorbidities include obstructive sleep apnea, former smoker: DVT prophylaxis: Lovenox 40 mg subcu daily. Living will/advanced directive/end of life care: Patient does not have living will or advanced directive. Her [id number] and son who lives in [place] is next to kin. She does not have designated power of lav crewman for health. After discussion of benefits/risks procedures involved with full code, DNR CC arrest and DNR CC, the patient opted for full code. Patient does want artificial life support including intubation, tube feed, ventilator and/chest compression, central venous catheter, vasopressor and DC shock if needed Total time spent in [id number] encounter in discussion of advanced directive 17 minutes. This is from admission about 1-day ago Laboratory Results 05/30/23 20:30: WBC 12.4 H, RBC 3.78 L, Hgb 10.9 L, Hct 34.8 L, MCV 92.1, MCH 28.8, MCHC 31.3 L, RDW Std Deviation 41.3, RDW Coeff of Malcom 12.4, Plt Count 368, MPV 10.6, Immature Gran % (Auto) 1.100 H, Neut % (Auto) 76.7 H, Lymph % (Auto) 14.6 L, Grand % (Auto) 5.4, Eos % (Auto) 1.4, Baso % (Auto) 0.8, Absolute Neuts (auto) 9.5 H, Absolute Lymphs (auto) 1.80, Nucleated RBC % 0, D-Dimer Quant (PE/DVT) 0.72 H*, Sodium 139, Potassium 3.5, Chloride 102, Carbon Dioxide 30.0, Anion Gap 7, BUN 15, Creatinine 0.84, Estim Creat Clear Calc 48.58, Est GFR (MDRD) Af Amer 86, Est GFR (MDRD) Non-Af 71, BUN/Creatinine Ratio 17.9, Glucose 201 H, Calcium 9.5, Troponin I High Sens 20 05/30/23 23:03: Specimen Type ART, Sample Site L Radial, pH 7.18 L*, Bicarbonate Actual 25.5, Total CO2 28, Base Excess -3 L, O2 Saturation 100 H, O2 % 100.0, ABG pCO2 67.9 H*, ABG pO2 391 H*, Dima Test N/A, Respiration Rate 14, O2 Delivery Device Adult Vent, Vent Mode AC, Tidal Volume 450.0, POC PEEP 5, Crit Call To/Read Back Yes, Blood Gas Notified Whom Dr Holland, Blood Gas Notified Time 23:05:17 Clinical Impression(s) from Imaging Studies Chest X-Ray 05/30/23 21:05 IMPRESSION: Normal x-ray examination of the chest. Charges/Coding Visit Charges Inpatient E&M: 61873 Init Hosp L3 Procedures Hospitalists Procedures: 33311 Advncd Care Plan 30 Min
[2023-05-30 23:08] LABS: Base Excess -3 mmol/L (-2 to +2); Bicarbonate 25.5 mmol/L (22-26); Blood Gas Specimen Type ART; Mode AC; O2 Delivery Device Adult Vent; PEEP 5; PO2 391 mmHG (75-100); RR 14; SITE L Radial; SO2 100 % (95-99); Total Carbon Dioxide 28 mmol/L; pCO2 67.9 mmHg (35-45); pH 7.18 (7.35-7.45)
--- NOTE | 2023-05-30 23:14 | ED.RN ---
2250 pt getting restless and reaching .pt has poor safety awareness.
[2023-05-30] MEDS: fentaNYL drip 100 ML 5 MCG CONT INF (23:35)
--- NOTE | 2023-05-30 23:45 | NURSING ---
300 cc NS infused during code.
--- NOTE | 2023-05-30 23:58 | ED.RN ---
using pt cellphone for number information attempted to Call Farideh (daughter), Mague (friend) with no answer Dr alberto currently speaking with pt son Murtaza.
[2023-05-31] VITALS (40 sets, daily range): BP systolic 93–175; BP diastolic 40–66; PULSE 68–96; RESP 14–23; TEMP 36.4–37.6; O2SAT 70–99; BMI 40.6
--- NOTE | 2023-05-31 00:23 | ED.RN ---
2400 dr alberto spoke to pt's son, Murtaza via phone.
--- NOTE | 2023-05-31 00:25 | ECHOCS_ITS ---
Version 2 Reason For Study: Afib, Aflutter Procedure This was a 2D Doppler, Color Flow transthoracic echocardiogram. Contrast injection was performed. The study was technically difficult. Exam performed portable in patient room. Left Ventricle Normal LV size. Mild concentric left ventricular hypertrophy. The left ventricular ejection fraction is 65 %. Normal diastology for age. Right Ventricle Mildly dilated right ventricle. Normal systolic function. Atria The left atrium is mildly enlarged. Normal right atrium. Mitral Valve Mild-Moderate (1-2+) posteriorly directed mitral valve insufficiency. Tricuspid Valve Trivial tricuspid valve insufficiency. Right ventricular systolic pressure estimated to be 43 mmHg. Aortic Valve Trisinus/trileaflet aortic valve. Pulmonic Valve The pulmonic valve is not well visualized. Great Vessels Normal sized aortic root. Pericardium/Pleural Trivial pericardial effusion. Medication Diluted definity 2ml given slow IV push to enhance endocardial definition. MMode/2D Measurements & Calculations LVIDd: 4.4 cm IVSd: 1.3 cm Ao root diam: 3.0 cm LVIDs: 2.8 cm LVPWd: 1.0 cm RVDd: 3.9 cm FS: 37.3 % LAV(MOD-bp): 57.2 ml LA A4 area: 20.0 cm2 LA dimension(2D): 4.8 cm LAV(MOD-bp) Indexed: 29.1 ml/m2 LAV(MOD-sp2): 55.3 ml LAV(MOD-sp4): 59.7 ml TAPSE: 2.4 cm RA A4 area: 10.2 cm2 Time Measurements MV dec time: 0.21 sec Doppler Measurements & Calculations MV E max eliseo: 70.1 cm/sec Lat Peak E' Eliseo: 6.0 cm/sec Med Peak E' Eliseo: 5.8 cm/sec MV A max eliseo: 86.9 cm/sec E/E' lat: 11.7 E/E' med: 12.1 MV E/A: 0.81 MV dec slope: 339.3 cm/sec2 Ao V2 max: 176.1 cm/sec PA V2 max: 119.9 cm/sec Ao max P.4 mmHg Ao V2 mean: 113.3 cm/sec Ao mean P.8 mmHg Ao V2 VTI: 29.7 cm PI end-d eliseo: 118.9 cm/sec TR max eliseo: 262.3 cm/sec TR max P.5 mmHg ECHO/Echo Complete W/ Contrast Interpretation Summary Mild concentric left ventricular hypertrophy. The left ventricular ejection fraction is 65 %. Mildly dilated right ventricle. The left atrium is mildly enlarged. Right ventricular systolic pressure estimated to be 43 mmHg. Mild-Moderate (1-2+) posteriorly directed mitral valve insufficiency. The study was technically difficult. Ordering Physician: Nico Sweet Referring Physician: Billy Madera Performed By: Barbara Alonzo, KAMRYN, RVT
[2023-05-31] MEDS: Lactated Ringers 1,000 ML 75 ML IV (00:33)
[2023-05-31] MEDS: 0.9% Saline Lock 10 ML Syringe IV ×3 (00:43→22:09)
[2023-05-31] MEDS: Methylprednisolone Sod Succ 40 MG/ML VIAL IV ×4 (00:43→22:09)
[2023-05-31] MEDS: CHLORHEXIDINE GLUC 2% CLOTH 1 EACH TOWELETTE TOPICAL (00:55)
--- NOTE | 2023-05-31 01:00 | NURSING ---
In IV documentation, patients right antecubital PIV was charted as a left antecubital PIV in ER, fixed documentation accordingly.
[2023-05-31 01:03] LABS: Magnesium 1.8 mg/dL (1.6-2.6)
[2023-05-31] MEDS: Ceftriaxone 1 GM/50 ML BAG IV (01:32)
--- NOTE | 2023-05-31 01:38 | NURSING ---
Mike from pharmacy called this RN to inform that Rocephin and LR have been ordered by Dr. Sweet. Mike reports that these cannot be ran together as they can have form intra- and extra- interactions. Mike states that the patient can still continue to get LR but the LR must be held approximately 30 mins before and after receiving rocephin and the lines flushed well prior to hooking up LR. This RN informed Dr. Sweet of this. Dr. Sweet would like to continue LR and tells this RN to hold is as necessary for rocephin dose. LR held at 0054, line flushed and rocephin hung 30 mins after stopping LR
[2023-05-31 02:11] LABS: Base Excess 0 mmol/L (-2 to +2); Bicarbonate 25.3 mmol/L (22-26); Blood Gas Specimen Type ART; Mode AC; O2 Delivery Device Adult Vent; PEEP 5; PO2 65 mmHG (75-100); RR 14; SITE L Radial; SO2 92 % (95-99); Total Carbon Dioxide 27 mmol/L; pCO2 42.3 mmHg (35-45); pH 7.38 (7.35-7.45)
[2023-05-31 04:30] LABS: Absolute Lymphocyte Count 0.52 X10^3/uL (0.83-4.51); Absolute Neutrophil Count 16.9 X10^3/uL (2.0-7.7); Basophil# 0.06 X10^3/uL; Basophil% 0.3 % (0-1); Eosinophil# 0.01 X10^3/uL; Eosinophils% 0.1 % (0-5); Hemoglobin 10.4 g/dL (12.0-15.0); Lymphocyte # 0.52 X10^3/ul (0.83-4.51); Lymphocyte % 2.8 % (19-41); Mean Corp Hgb Conc 30.6 g/dL (32-36); Mean Corpuscular Hgb 28.8 pg (27.0-32.0); Mean Corpuscular Volume 94.2 fL (81-99); Mean Platelet Vol. 10.6 fl (6.2-12.0); Monocyte# 0.55 X10^3/uL; NRBC Flagged by Analyzer 0 % (0-5); Neutrophil # 16.85 X10^3/uL (2.7-7.7); Neutrophil % 92.3 % (47-70); POSITIVE DIFFERENTIAL YES; Platelet Count 350 K/mm3 (150-450); RBC Distribution Width CV 12.4 % (11.6-14.6); RBC Distribution Width SD 42.6 fl (35.1-43.9); Red Blood Count 3.61 M/mm3 (4.2-5.4); White Blood Count 18.3 K/mm3 (4.4-11.0)
[2023-05-31 04:35] LABS: Differential Indicated SCAN CRITERIA MET
[2023-05-31 04:48] LABS: AST(SGOT) 47 U/L (15-37); Alanine Aminotransfer ALT/SGPT 81 U/L (13-56); Albumin, Serum 2.9 g/dL (3.2-5.0); Alkaline Phosphatase 118 U/L (45-117); Anion Gap 9 (5-15); BUN 17 mg/dL (7-18); BUN/Creat Ratio 17.2 RATIO (10-20); Calcium,Total 8.4 mg/dL (8.5-10.1); Chloride 99 mmol/L (98-107); Creatinine, Serum 0.99 mg/dL (0.55-1.02); EST Glomerular Filtration Rate 59 mL/min (>60); Est Glom Filt Rate - Afr Amer 71 mL/min (>60); Estimated Creatinine Clearance 39.33 ml/min; Globulin 2.9 g/dL (2.2-4.2); Glucose 338 mg/dL (74-106); Phosphorus 3.2 mg/dL (2.5-4.9); Protein, Total 5.8 g/dL (6.4-8.2); Sodium Level 135 mmol/L (136-145)
[2023-05-31] MEDS: Propofol 10MG/Ml 1,000 MG/100 ML Bottle 11.9 MG CONT INF (05:39)
[2023-05-31] MEDS: TITRATION PARAMETER CHANGE 1 EACH IV (06:16)
[2023-05-31] MEDS: Ipratropium/Albuterol Sulfate 3 ML AMPUL.NEB INHALATION ×4 (06:51→18:56)
--- NOTE | 2023-05-31 07:22 | EX.PCM.CONCC ---
Assessment & Plan Assessment/Plan (1) Atrial fibrillation with rapid ventricular response: (2) Cardiac arrest with pulseless electrical activity: (3) Anaphylaxis: QUALIFIERS: Encounter type: initial encounter Qualified Code(s): T78.2XXA - Anaphylactic shock, unspecified, initial encounter (4) Respiratory failure: QUALIFIERS: Chronicity: acute on chronic Respiratory failure complication: hypercapnia Qualified Code(s): J96.22 - Acute and chronic respiratory failure with hypercapnia PLAN: Plan RECOMMENDATIONS: 1. Continue antibiotics and steroids for now 2. Aggressive control of blood pressure 3. Wean oxygen as tolerated 4. Await results of culture 5. Okay to leave the intensive care unit from my perspective IMPRESSIONS: 1. Acute on chronic combined respiratory failure secondary to cardiopulmonary arrest secondary to anaphylaxis Patient does have significant underlying lung disease, but likely had an element of anaphylaxis leading to an arrest. It is unclear if this is secondary to a respiratory or cardiac etiology. Patient appears to have responded well to current therapy. However, patient continues to have some lip and tongue swelling, so we will hold off on any extubation attempts for another 24 hours. ABG shows adequate oxygenation and ventilation on the current settings. Patient is on empiric antibiotics, but has received multiple doses of antibiotics recently. There was a question of upper lobe infiltrates. Patient does not appear to have any anoxic injury associated with this event, but will have to wait for extubation and reevaluate. 2. Hypertensive emergency/anxiety disorder Patient with significant decompensation when systolics were greater than 190. Unclear if this is related to anxiety versus having anxiety as a result of her pulmonary edema. Aggressively control blood pressure following discontinuation of propofol. Defer to primary service if cardiology needs to be involved. 3. A-fib with RVR status post cardioversion Patient noted to have A-fib with RVR on ROSC. Patient did receive a cardioversion. This would exacerbate patient's underlying diastolic heart failure, but x-ray appears to show patient is tolerating relatively well. Patient is back on her baseline medications. 3. 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 Patient has had significant issues with anxiety in the past.. Patient would likely benefit from nocturnal CPAP on extubation, but has not tolerated this in the past. TIME: 38 minutes critical care time spent addressing patient's acute on chronic respiratory failure, anaphylaxis, arrest, review of all data and collaboration with care team HPI Consult Data Date of Consult: 05/31/23 HPI Narrative HPI Narrative: TIM CEDILLO is a 72 F, with past medical history listed below and well-known to me from the outpatient office, who presents to [facility] on 05/30/2023 secondary to shortness of breath. Patient is on 4 L/min supplemental oxygen at home at baseline and was recently hospitalized secondary to pneumonia. Patient had been discharged on the day of ER presentation, but was unable to get her medications filled and started to have progressive shortness of breath. Patient stated her oxygen dropped into the 80s on her baseline oxygen therapy. Patient also reportedly had had some hemoptysis. In the ER, patient was afebrile, but tachycardic at 107 bpm and hypertensive at 193/91. Patient was noted to have a white blood cell count of 12.4, hemoglobin of 10.9 and platelets of 368. Chemistries were relatively unremarkable except for glucose of 201, troponin of 20 and a bicarbonate of 30. There was some concern for PE, so a CTA of the chest was obtained. Reportedly, during the CTA patient became progressively more short of breath and was brought back to the emergency department. Patient was noted to have erythema of her chest and face and then went apneic. Patient received 3 rounds of epinephrine and was emergently intubated patient did receive some Benadryl. Patient had noted to have swelling of the tongue and redness of the skin significantly improved following interventions. Patient did develop A-fib with RVR after achieving ROSC. Patient did have a cardioversion and no further A-fib has been noted. Patient was admitted to the intensive care unit for further evaluation. In the intensive care unit, patient has been able to be weaned to minimal FiO2 requirements. Patient did not have a spontaneous breathing trial this morning as she is still noted to have some tongue and lip swelling along with brief intubation. ABG after intubation showed normalization of patient's acute hypercarbic respiratory failure. Patient's blood pressures have been doing okay overnight. [facility] Medical History Anemia Anxiety and depression Asthma with COPD Atherosclerotic heart disease of [place] coronary artery without angina pectoris Back pain Chest pain Chronic back pain Chronic respiratory failure COPD (chronic obstructive pulmonary disease) Diastolic CHF Former smoker Hepatitis HLD (hyperlipidemia) Hypertension Morbid obesity Obesity MARK treated with BiPAP Psoriasis Smoking greater than 40 pack years Thyroid nodule Type 2 diabetes mellitus Home Medications Handicap Placard #1 ea 12/12/20 [Rx Last Taken Unknown] bisacodyl 5 mg tablet,delayed release (Dulcolax (bisacodyl)) 5 mg PO QHS PRN constipation 30 days #30 tabs 11/13/21 [Rx Last Taken Unknown] pen needle, diabetic 32 gauge x #50 ea 02/11/22 [Rx Last Taken Unknown] blood sugar diagnostic (True Metrix Glucose Test Strip) #100 ea 09/11/22 [Rx Last Taken Unknown] blood-glucose meter (True Metrix Glucose Meter) #1 ea 09/11/22 [Rx Last Taken Unknown] albuterol sulfate 90 mcg/actuation aerosol inhaler 2 puff inhalation Q6H PRN shortness of breath or wheezing #18 grams 11/06/22 [Rx Last Taken Unknown] ipratropium 0.5 mg-albuterol 3 mg (2.5 mg base)/3 mL nebulization soln 3 ml inhalation Q4H PRN PRN SOB &/OR WHEEZING #180 mL 11/10/22 [Rx Last Taken Unknown] cane #1 ea 11/16/22 [Rx Last Taken Unknown] citalopram 40 mg tablet 40 mg PO QHS depression #90 tabs 11/16/22 [Rx Last Taken Unknown] risperidone 1 mg tablet 1 mg PO QHS anxiety #90 tabs 12/07/22 [Rx Last Taken Unknown] isosorbide mononitrate 60 mg tablet,extended release 24 hr 60 mg PO DAILY BP #90 tabs 12/26/22 [Rx Last Taken Unknown] nitroglycerin 0.4 mg sublingual tablet 0.4 mg sublingual Q5-15M PRN Pain #30 tabs 12/26/22 [Rx Last Taken Unknown] flash glucose sensor (FreeStyle Emily 2 Sensor kit) #2 ea 01/06/23 [Rx Last Taken Unknown] atorvastatin 80 mg tablet 80 mg PO QHS cholesterol 01/26/23 [History Last Taken Unknown] clopidogrel 75 mg tablet 75 mg PO DAILY blood thinner 01/26/23 [History Last Taken Unknown] furosemide 20 mg tablet (Lasix) 20 mg PO DAILY diuretic 01/26/23 [History Last Taken Unknown] losartan 25 mg tablet 25 mg PO DAILY blood pressure 01/26/23 [History Last Taken Unknown] metoprolol tartrate 25 mg tablet 12.5 mg PO BID blood pressure 01/26/23 [History Last Taken Unknown] flash glucose scanning reader (Proterro Emily 2 [place]) #1 ea 03/23/23 [Rx Last Taken Unknown] ondansetron HCl 4 mg tablet 4 mg PO Q6H PRN nausea and vomiting #14 tabs 04/16/23 [Rx Last Taken Unknown] sucralfate 1 gram tablet (Carafate) 1 g PO TID PRN acid reflux #20 tabs 04/16/23 [Rx Last Taken Unknown] insulin glargine 100 unit/mL (3 mL) subcutaneous pen (Basaglar KwikPen U-100 Insulin) 36 unit (0.36 mL) subcut DAILY diabetic managment #42 mL 05/06/23 [Rx Last Taken Unknown] insulin lispro 100 unit/mL subcutaneous pen (Humalog KwikPen (U-100) Insulin) 20 unit (0.2 mL) subcut TID diabetes #72 mL 05/06/23 [Rx Last Taken Unknown] alprazolam 0.25 mg tablet 0.25 mg PO QHS anxiety #30 tabs 05/12/23 [Rx Last Taken Unknown] pantoprazole 40 mg tablet,delayed release 40 mg PO BID stomach #180 tabs 05/20/23 [Rx Last Taken Unknown] potassium chloride 20 mEq tablet,extended release 20 meq PO DAILY #3 tabs 05/25/23 [Rx Last Taken Unknown] doxycycline hyclate 100 mg tablet 100 mg PO BID #10 tabs 05/30/23 [Rx Last Taken Unknown] prednisone 20 mg tablet 40 mg (2 x 20 mg) PO DAILY #10 tabs 05/30/23 [Rx Last Taken Unknown] Allergy/AdvReac Type Severity Reaction Status Date / Time Iodinated Contrast Media Allergy Severe Anaphylaxis Verified 05/31/23 06:34 amoxicillin [Amoxicillin] Allergy Intermediate Rash Verified 05/28/23 22:22 hydrocodone Allergy Intermediate SWELLING Verified 05/28/23 22:22 gabapentin [From Neurontin] Allergy Shortness Verified 05/28/23 22:22 of breath levofloxacin [From Levaquin] Allergy Hives Verified 05/28/23 22:22 pseudoephedrine HCl Allergy Shortness Verified 05/28/23 22:22 [From Sudafed] of breath red dye Allergy Hives Verified 05/28/23 22:22 prednisone AdvReac Severe mean mood Verified 05/28/23 22:22 clonazepam [From Klonopin] AdvReac Depression Verified 05/28/23 22:22 codeine AdvReac HEADACHE Verified 05/28/23 22:22 Family History Brother Heart disease Mother Colon cancer Heart disease Surgical History History of cholecystectomy History of left heart catheterization (LHC) (~09/23/20) Stented coronary artery (12/28/18) Social History Smoking Status: Former smoker pack-years: 40 how long ago did patient quit smokin year ago alcohol intake: never substance use type: does not use caffeine: Yes Type: carbonated beverages and tea what type of physical activity do you participate in: none ROS Review of Systems ROS Unobtainable: due to endotracheal tube Physical Exam Const Constitutional Narrative: Intubated and sedated. RASS 0. General Appearance: cooperative, comfortable, well kempt and well developed Exam Limitations: no limitations Nutritional Appearance: morbidly obese HEENT normocephalic, head/scalp atraumatic and moist oral mucous membranes HEENT Narrative: no thrush noted. Some tongue and lip swelling noted. Eyes PERRL, EOMs intact bilaterally and conjunctivae normal Eyes Narrative: No scleral icterus Neck no lymphadenopathy and supple Neck Narrative: Trachea midline, no thyroid enlargement Resp normal respiratory effort, no retractions and no use of accessory muscles Resp Narrative: Few scattered end expiratory wheezes Auscultation: wheezes; Negative for rales or rhonchi Cardio regular rate, regular rhythm, S1 normal heart sound, S2 normal heart sound, no murmurs, no rub, no gallops and no clicks GI normal to inspection, nondistended, normoactive bowel sounds, soft to palpation and non-tender Extremity no clubbing, cyanosis or edema Extremity Narrative: Pedal pulses are 2+, onychomycosis bilateral lower extremities Skin no rashes or lesions noted, no wounds, skin turgor normal and no jaundice Neuro CN's II-XII intact bilaterally, moves all extremities and no focal motor deficits Neuro Narrative: Very minimal generalized weakness with proximal musculature being weaker than distal Speech: speech normal Psych affect normal Medical Records Data Attestation: I reviewed the patient's medical records Lab / Micro Data Attestation: I reviewed the patient's lab results. 05/31/23 04:17 05/31/23 04:17 Labs: Laboratory Results - last 24 hr 05/30/23 20:30: WBC 12.4 H, RBC 3.78 L, Hgb 10.9 L, Hct 34.8 L, MCV 92.1, MCH 28.8, MCHC 31.3 L, RDW Std Deviation 41.3, RDW Coeff of Malcom 12.4, Plt Count 368, MPV 10.6, Immature Gran % (Auto) 1.100 H, Neut % (Auto) 76.7 H, Lymph % (Auto) 14.6 L, [place] % (Auto) 5.4, Eos % (Auto) 1.4, Baso % (Auto) 0.8, Absolute Neuts (auto) 9.5 H, Absolute Lymphs (auto) 1.80, Nucleated RBC % 0, D-Dimer Quant (PE/DVT) 0.72 H*, Sodium 139, Potassium 3.5, Chloride 102, Carbon Dioxide 30.0, Anion Gap 7, BUN 15, Creatinine 0.84, Estim Creat Clear Calc 48.58, Est GFR (MDRD) Af Amer 86, Est GFR (MDRD) Non-Af 71, BUN/Creatinine Ratio 17.9, Glucose 201 H, Calcium 9.5, Magnesium 1.8, Troponin I High Sens 20 05/31/23 04:17: WBC 18.3 H, RBC 3.61 L, Hgb 10.4 L, Hct 34.0 L, MCV 94.2, MCH 28.8, MCHC 30.6 L, RDW Std Deviation 42.6, RDW Coeff of [place] 12.4, Plt Count 350, MPV 10.6, Immature Gran % (Auto) 1.500 H, Neut % (Auto) 92.3 H, Lymph % (Auto) 2.8 L, [place] % (Auto) 3.0, Eos % (Auto) 0.1, Baso % (Auto) 0.3, Absolute Neuts (auto) 16.9 H, Absolute Lymphs (auto) 0.52 L, Nucleated RBC % 0, Sodium 135 L, Potassium 4.0, Chloride 99, Carbon Dioxide 27.0, Anion Gap 9, BUN 17, Creatinine 0.99, Estim Creat Clear Calc 39.33, Est GFR (MDRD) Af Amer 71, Est GFR (MDRD) Non-Af 59 L, BUN/Creatinine Ratio 17.2, Glucose 338 H, Calcium 8.4 L, Phosphorus 3.2, Magnesium 2.0, Total Bilirubin 0.40, AST 47 H, ALT 81 H, Alkaline Phosphatase 118 H, Total Protein 5.8 L, Albumin 2.9 L, Globulin 2.9, Albumin/Globulin Ratio 1.0 ABG Data ABG results: ABG 05/30/23 05/31/23 23:03 02:06 Specimen Type ART ART Sample Site L Radial L Radial pH 7.18 L* 7.38 Bicarbonate Actual 25.5 25.3 Total CO2 28 27 Base Excess -3 L 0 O2 Saturation 100 H 92 L O2 % 100.0 40.0 ABG pCO2 67.9 H* 42.3 ABG pO2 391 H* 65 L Dima Test N/A N/A Respiration Rate 14 14 O2 Delivery Device Adult Vent Adult Vent Vent Mode AC AC Tidal Volume 450.0 450.0 POC PEEP 5 5 Crit Call To/Read Back Yes Blood Gas Notified Whom Dr Hloland Blood Gas Notified Time 23:05:17 Attestation: I personally reviewed and interpreted this ABG as follows: Interpretation: See HPI Rhythm Strip Rhythm Strip: Sinus Rhythm Rate: 92 Ectopy: None Radiology Impression Chest X-Ray 05/30/23 21:05 IMPRESSION: Normal x-ray examination of the chest. Electronically Signed: Max Braxton MD at 21:21 EDT , Chest CTA 05/30/23 21:31 IMPRESSION: Bilateral streaky and linear atelectasis. Trace bilateral pleural effusions. Distal pulmonary artery branch vessel evaluation is suboptimal secondary to timing of contrast bolus as well as respiratory motion, however, there is no obvious proximal pulmonary embolus. Bilateral hypoattenuating thyroid lesions with dominant 18 mm lesion on the right. Splenomegaly new from 2015. Electronically Signed: Bolivar Byrd MD at 0:51 EDT , Chest X-Ray 05/30/23 22:25 IMPRESSION: Endotracheal tube tip is approximately 71 mm from the susi. Chest with no acute disease. Electronically Signed: Bolivar yBrd MD at 0:53 EDT , Charges/Coding Procedures Hospitalists Procedures: 75170 Critial Care 1st Hr
--- NOTE | 2023-05-31 07:31 | PN.HOSP_ITS ---
Reason for Visit Reason for Visit: Diagnoses Cardiac arrest, cause unspecified (05/30/23) Unspecified atrial fibrillation (05/30/23) Chronic obstructive pulmonary disease with (acute) exacerbation (05/30/23) Subjective Subjective Remains intubated, does open eyes some and look around Objective Data Objective Data Vital Signs: Vital Signs Temp Pulse Resp BP Pulse Ox O2 Del Method O2 Flow Rate 99.7 F H 81 14 136/57 H 94 Mechanical Ventilator 4 05/31/23 06:00 05/31/23 07:00 05/31/23 07:00 05/31/23 07:00 05/31/23 07:00 05/31/23 07:00 05/30/23 22:26 FiO2 30 05/31/23 07:00 Oxygen Flow Rate (L/min) 4 Oxygen Delivery Method Mechanical Ventilator Weight: 100 kg Body Mass Index (BMI) 40.6 Intake & Output: Intake and Output for Last 24 Hours 05/29/23 05/30/23 05/31/23 23:59 23:59 23:59 Intake Total 7.84 / 16.60 212.20 / 212.20 Output Total 475 / 475 Balance 7.84 / -23.40 -262.80 / -262.80 Lab / Micro Data 05/31/23 04:17 05/31/23 04:17 Labs: Laboratory Results - last 24 hr 05/30/23 20:30: WBC 12.4 H, RBC 3.78 L, Hgb 10.9 L, Hct 34.8 L, MCV 92.1, MCH 28.8, MCHC 31.3 L, RDW Std Deviation 41.3, RDW Coeff of [place] 12.4, Plt Count 368, MPV 10.6, Immature Gran % (Auto) 1.100 H, Neut % (Auto) 76.7 H, Lymph % (Auto) 14.6 L, [place] % (Auto) 5.4, Eos % (Auto) 1.4, Baso % (Auto) 0.8, Absolute Neuts (auto) 9.5 H, Absolute Lymphs (auto) 1.80, Nucleated RBC % 0, D-Dimer Quant (PE/DVT) 0.72 H*, Sodium 139, Potassium 3.5, Chloride 102, Carbon Dioxide 30.0, Anion Gap 7, BUN 15, Creatinine 0.84, Estim Creat Clear Calc 48.58, Est GFR (MDRD) Af Amer 86, Est GFR (MDRD) Non-Af 71, BUN/Creatinine Ratio 17.9, Glucose 201 H, Calcium 9.5, Magnesium 1.8, Troponin I High Sens 20 05/31/23 04:17: WBC 18.3 H, RBC 3.61 L, Hgb 10.4 L, Hct 34.0 L, MCV 94.2, MCH 28.8, MCHC 30.6 L, RDW Std Deviation 42.6, RDW Coeff of [place] 12.4, Plt Count 350, MPV 10.6, Immature Gran % (Auto) 1.500 H, Neut % (Auto) 92.3 H, Lymph % (Auto) 2.8 L, [place] % (Auto) 3.0, Eos % (Auto) 0.1, Baso % (Auto) 0.3, Absolute Neuts (auto) 16.9 H, Absolute Lymphs (auto) 0.52 L, Nucleated RBC % 0, Sodium 135 L, Potassium 4.0, Chloride 99, Carbon Dioxide 27.0, Anion Gap 9, BUN 17, Creatinine 0.99, Estim Creat Clear Calc 39.33, Est GFR (MDRD) Af Amer 71, Est GFR (MDRD) Non-Af 59 L, BUN/Creatinine Ratio 17.2, Glucose 338 H, Calcium 8.4 L, Phosphorus 3.2, Magnesium 2.0, Total Bilirubin 0.40, AST 47 H, ALT 81 H, Alkaline Phosphatase 118 H, Total Protein 5.8 L, Albumin 2.9 L, Globulin 2.9, Albumin/Globulin Ratio 1.0 ABG Data ABG results: ABG 05/30/23 05/31/23 23:03 02:06 Specimen Type ART ART Sample Site L Radial L Radial pH 7.18 L* 7.38 Bicarbonate Actual 25.5 25.3 Total CO2 28 27 Base Excess -3 L 0 O2 Saturation 100 H 92 L O2 % 100.0 40.0 ABG pCO2 67.9 H* 42.3 ABG pO2 391 H* 65 L Dima Test N/A N/A Respiration Rate 14 14 O2 Delivery Device Adult Vent Adult Vent Vent Mode AC AC Tidal Volume 450.0 450.0 POC PEEP 5 5 Crit Call To/Read Back Yes Blood Gas Notified Whom Dr Holland Blood Gas Notified Time 23:05:17 Radiography Diagnostic Testing: Radiology Impression Chest X-Ray 05/30/23 21:05 IMPRESSION: Normal x-ray examination of the chest. Electronically Signed: Max Braxton MD at 21:21 EDT , Chest CTA 05/30/23 21:31 IMPRESSION: Bilateral streaky and linear atelectasis. Trace bilateral pleural effusions. Distal pulmonary artery branch vessel evaluation is suboptimal secondary to timing of contrast bolus as well as respiratory motion, however, there is no obvious proximal pulmonary embolus. Bilateral hypoattenuating thyroid lesions with dominant 18 mm lesion on the right. Splenomegaly new from 2014. Electronically Signed: Bolivar Byrd MD at 0:51 EDT , Chest X-Ray 05/30/23 22:25 IMPRESSION: Endotracheal tube tip is approximately 71 mm from the susi. Chest with no acute disease. Electronically Signed: Bolivar Byrd MD at 0:53 EDT , Rhythm Strip Rhythm Strip: Sinus Rhythm Rate: 92 Ectopy: None Physical Exam Narrative General: Intubated and sedated HEENT: Atraumatic, normocephalic Eyes: Eyes closed but have some spontaneous opening Neck: Supple Respiratory: Mechanically ventilated Cardiovascular: Regular rate and rhythm GI: Soft, nontender, nondistended Extremities: No edema Musculoskeletal: Presently sedated and not moving extremities spontaneously Neuro: Unable to participate in neuro exam secondary to intubated and sedated Skin: No rashes appreciated Psych: Unable to cooperate secondary to intubated and sedated Assessment & Plan Assessment/Plan (1) Atrial fibrillation with rapid ventricular response: (2) Cardiac arrest with pulseless electrical activity: (3) COPD exacerbation: PLAN: Plan D/c'd on the morning of presentation after admit for aceopd and pneumonia. This 72-year-old female came to ED after discharge with increased respiratory distres s, tachypnea and hypoxia and then CODE BLUE blue after CTA chest, successfully ROSC and then admitted in ICU. #Acute cardiopulmonary arrest after CTA chest concern for possible anaphylactic reaction from IV contrast: Patient is being admitted in ICU. In her allergy list it is mention prednisone causes some mood changes which is known side effect of prednisone/steroid and hives with red dye. ER physician also said patient tongue was swollen and redness of the skin which improved later in the ED. Continue IV Solu-Medrol. Patient is intubated. Had successful ACLS/BLS lasted for 14 minutes with 3 doses of epinephrine. ABG 7.18/68/391 bicarb 28. Bicarb in BMP is 13. [employer] consulted -05/31: Remains intubated in ICU, echo pending, still some tongue swelling still remain intubated today and reeval tomorrow #Acute combined respiratory failure on chronic hypoxic respiratory failure due to acute exacerbation of COPD most likely due to bilateral lower lobes pneumonia organism unspecified, prior to present admission. : Continue bronchodilators DuoNeb every 4 hourly, IV Solu-Medrol, incentive/Pep after extubation, Mucinex. Prior to intubation, chest x-ray initially reviewed shows no acute infiltrate and reported normal. Started on IV ceftriaxone. Continue doxycycline. Patient completed azithromycin course. Patient just had COVID-19 PCR reported normal, respiratory panel normal and urinary antigens normal on 05/29/2023. She had COVID-vaccine and booster. Blood cultures x2 on 05/[address] still pending. Patient follows Dr. Nuno in pulmonary clinic. -05/31: Patient remains on IV Solu-Medrol and nebs, on Rocephin and Doxy, chest x-ray prior to intubation with no acute infiltrate, ICU/pulm consulted, sputum sample obtained and pending #Transient A-fib after ACLS with history of CAD status post PCI ostial diagonal and mid LAD 12/26/2018 : Patient has been in sinus rhythm during previous EKG and EKG done prior to CODE BLUE. It is normal sinus rhythm 92 bpm. After CODE BLUE it was A-fib 138 bpm, QTc 4 8 8 ms. QRS 84 ms. Repeat 2D echo as patient had cardiopulmonary arrest. Patient was successfully cardioverted to sinus rhythm after 300 J by ER physician. Currently in sinus rhythm. Patient was admitted for unstable angina in December 2022 and at that time cardiac cath was done for abnormal stress test. Cardiac cath showed ostial lesion of jailed diagonal branch, patent LAD stent therefore no PCI was done. Continue losartan, metoprolol, isosorbide and Plavix. -05/31: Monitoring on telemetry, may be able to forego anticoagulation given this was Viviana cardiac arrest #Chronic Diastolic CHF: 08/11/2021 echocardiogram with normal LV size, moderate concentric LVH, LV systolic function normal, EF 60%, pulmonary artery systolic pressure 40 mmHg, stage I diastolic dysfunction. Patient is on Lasix 20 mg along with potassium supplement continued. Patient not showing clinical features of acute heart failure exacerbation. -05/31: Monitor I's and O's, daily weights, continue Lasix #Diabetes mellitus type II: Continue home dose of Lantus insulin and lispro i nsulin. Currently NPO. accu checks every 6 hourly with Humalog sliding scale coverage. Start tube feed in the morning if still not extubated. -05/31: Continue to monitor glucose and adjust as indicated #Hypertensive urgency - Blood pressure was high in the ED. BP still 156/97. Continue home regimen including metoprolol, losartan, isosorbide. -05/31: BP in ED 193/91, has improved to 136/57 this a.m., continue present management #Hyperlipidemia: Continue home statin regimen. Fasting profile in December 2022 within normal limit LDL 44, HDL 55. Continue high intensity atorvastatin. #Chronic normocytic anemia: Admission hemoglobin 10.9 g. On baseline. Platelet count normal. #Anxiety and depression: Hold risperidone, citalopram, alprazolam home regimen as patient is sedated on propofol and fentanyl drip #Morbid obesity -BMI 40.6 kg/m? -Complicates treatment, prognosis, outcomes -Recommend weight loss and lifestyle changes #Other comorbidities include obstructive sleep apnea, former smoker: DVT prophylaxis: Lovenox 40 mg subcu daily. Charges/Coding Visit Charges Inpatient E&M: 18851 Subs Hosp L2
[2023-05-31] MEDS: Losartan Potassium 25 MG Tablet PO (08:10)
[2023-05-31] MEDS: Clopidogrel Bisulfate 75 MG Tablet PO (08:11)
[2023-05-31] MEDS: Furosemide 20 MG Tablet PO (08:11)
[2023-05-31] MEDS: Metoprolol Tartrate 25 MG Tablet 12.5 MG PO (08:11)
[2023-05-31] MEDS: Doxycycline 100 MG CAPSULE PO ×2 (08:11→22:09)
[2023-05-31] MEDS: Potassium Chloride Oral Tablet 20 MEQ 40 MEQ PO (08:12)
[2023-05-31] MEDS: Enoxaparin 40 MG/0.4 ML Syringe SC (08:13)
[2023-05-31] MEDS: Chlorhexidine 15 ML PO ×2 (08:51→22:13)
--- NOTE | 2023-05-31 09:33 | CASEMGMT ---
HARLEEN LUCIANO Readmission Review: Index: 05/29 thru 05/30 Dx: COPD exacerbation and Pneumonia Readmission: 05/30 Dx: Acute cardiopulmonary arrest, A/C combined respiratory failure, COPD exac Pt with comorbidities including CAD, HFpEF, DM type II, HTN, anxiety and depression, obesity, MARK and chronic respiratory failure was admitted in the early AM on 05/29 with COPD exac and PNA. Please HARLEEN LUCIANO DC Planning assessment completed on 05/29 which notes pt lives alone, is independent at baseline, and denied any need for assistance including home health services. Pt stated she had a nebulizer, BGM and insulin with supplies, and home O2 at 4l/min from [facility]. PT states she did not have her portable O2 and requested an ambulance to transport her home at discharge. On 05/30, the pt requested to be discharged home and per physician documentation, pt denied any complaints. Pt's respiratory exam noted pt with diminished breath sounds and bilat crackles and wheezing. Pt was on her baseline home O2 at 4l/min with a PO of 100%. RR had ranged from 16-26 the AM of discharge. Pt was discharged back home via [facility]. Scripts for Doxycycline and prednisone were e-prescribed to [facility]. Pt did receive a dose of IV Rocephin 05/30 AM, pt had refused IV solumedrol during this hospital stay but was agreeable to po prednisone at discharge. Pt presented back to the ED with complaints of SOB and hypoxia with a PO in the 80's on her home O2 of 4l/min, VS on presentation include RR 29, PO 96% on 4l/min O2. Pt reports not being able to obtain her medications and that her nebulizer was not working. During pt's evaluation in the ED, pt became increasingly SOB during her CT scan and respirations ceased upon return to the ED department with PEA also noted. Pt was resuscitated and is now on the ventilator. Physician noted concern for possible anaphylactic reaction to CT contrast. Pt currently sedated and on vent. Will discuss discharge planning needs when pt able to participate. Pt is noted to have a son Murtaza and has listed her ALBA Gong as next of kin during previous HARLEEN LUCIANO assessments. These contacts are listed in the EMR. Iván Beatty RN CM
[2023-05-31 11:12] LABS: CPK Total, Creatine Kinase 119 U/L (26-192); Triglycerides 113 mg/dL
[2023-05-31] MEDS: Insulin Lispro 100 UNIT/ML INSULN.PEN SC ×2 (11:39→17:19)
[2023-05-31] MEDS: Insulin Glargine-YFGN 100 UNIT/ML Pen 30 UNIT SC ×2 (11:39→22:23)
[2023-05-31] MEDS: fentaNYL drip 100 ML 10 MCG CONT INF ×2 (11:41→22:00)
[2023-05-31] MEDS: Propofol 10MG/Ml 1,000 MG/100 ML Bottle 12 MG CONT INF ×2 (11:41→17:36)
[2023-05-31 12:05] LABS: Bedside Glucose 305 mg/dL (74-106)
--- NOTE | 2023-05-31 15:51 | CASEMGMT ---
HARLEEN LUCIANO: Call received from pt's landlord Abbey Aguilar. Per Abbey, she is aware that pt was picked up by EMS last evening and is not aware of pt's current condition but wanted to request assistance or recommendations on how to the help the pt. Per Abbey, she has received reports that pt's home is knee deep in trash and food remnants and there is a strong odor in the home. Abbey states the pt's children are not involved or assist pt in any manner. Abbey expressed concern for pt stating she is aware pt is on O2 and has been in an out of the hospital and feels pt's living conditions are not good for her. This HARLEEN LUCIANO explained to Abbey that pt's admission could not be confirmed or denied and recommended Abbey contact [facility] with her concerns. [facility]' phone number was provided. Iván Beatty RN CM
[2023-05-31 18:24] LABS: Bedside Glucose 282 mg/dL (74-106)
[2023-05-31] MEDS: Atorvastatin Calcium 80 MG Tablet NG (22:13)
[2023-05-31 22:42] LABS: Bedside Glucose 260 mg/dL (74-106)
[2023-05-31] MEDS: Propofol 10MG/Ml 1,000 MG/100 ML Bottle 18 MG CONT INF (23:23)
[2023-06-01] VITALS (37 sets, daily range): BP systolic 113–175; BP diastolic 52–75; PULSE 61–107; RESP 12–39; TEMP 36.1–37.9; O2SAT 94–100; BMI 40.4
[2023-06-01] MEDS: Insulin Lispro 100 UNIT/ML INSULN.PEN SC ×4 (00:22→23:40)
[2023-06-01 00:42] LABS: Bedside Glucose 269 mg/dL (74-106)
[2023-06-01 03:17] LABS: Absolute Lymphocyte Count 0.86 X10^3/uL (0.83-4.51); Absolute Neutrophil Count 11.6 X10^3/uL (2.0-7.7); Basophil# 0.01 X10^3/uL; Basophil% 0.1 % (0-1); Lymphocyte # 0.86 X10^3/ul (0.83-4.51); Lymphocyte % 6.5 % (19-41); Mean Corp Hgb Conc 31.3 g/dL (32-36); Mean Corpuscular Hgb 28.8 pg (27.0-32.0); Mean Corpuscular Volume 92.2 fL (81-99); Mean Platelet Vol. 10.4 fl (6.2-12.0); Monocyte# 0.74 X10^3/uL; Monocyte% 5.6 % (0-10); NRBC Flagged by Analyzer 0 % (0-5); Neutrophil # 11.56 X10^3/uL (2.7-7.7); Neutrophil % 86.9 % (47-70); Platelet Count 295 K/mm3 (150-450); RBC Distribution Width CV 12.6 % (11.6-14.6); RBC Distribution Width SD 42.5 fl (35.1-43.9); Red Blood Count 3.47 M/mm3 (4.2-5.4); White Blood Count 13.3 K/mm3 (4.4-11.0)
[2023-06-01] MEDS: Propofol 10MG/Ml 1,000 MG/100 ML Bottle 18 MG CONT INF (03:28)
[2023-06-01] MEDS: CHLORHEXIDINE GLUC 2% CLOTH 1 EACH TOWELETTE TOPICAL (03:28)
[2023-06-01 03:55] LABS: ALB/GLOB Ratio 0.9 RATIO (0.9-2.4); AST(SGOT) 18 U/L (15-37); Alanine Aminotransfer ALT/SGPT 60 U/L (13-56); Albumin, Serum 2.9 g/dL (3.2-5.0); Alkaline Phosphatase 111 U/L (45-117); Anion Gap 5 (5-15); BUN 25 mg/dL (7-18); BUN/Creat Ratio 27.4 RATIO (10-20); Calcium,Total 8.8 mg/dL (8.5-10.1); Chloride 102 mmol/L (98-107); Creatinine, Serum 0.91 mg/dL (0.55-1.02); EST Glomerular Filtration Rate 65 mL/min (>60); Est Glom Filt Rate - Afr Amer 78 mL/min (>60); Estimated Creatinine Clearance 42.79 ml/min; Globulin 3.1 g/dL (2.2-4.2); Glucose 256 mg/dL (74-106); Potassium 3.9 mmol/L (3.5-5.1); Sodium Level 137 mmol/L (136-145)
[2023-06-01 05:59] LABS: Bedside Glucose 212 mg/dL (74-106)
[2023-06-01] MEDS: Methylprednisolone Sod Succ 40 MG/ML VIAL IV ×3 (06:02→20:37)
[2023-06-01] MEDS: 0.9% Saline Lock 10 ML Syringe IV ×7 (06:02→23:38)
[2023-06-01] MEDS: Racepinephrine HCl 0.5 ML VIAL.NEB. INHALATION (06:09)
--- NOTE | 2023-06-01 06:44 | PN.CC_ITS ---
Assessment & Plan Assessment/Plan (1) Atrial fibrillation with rapid ventricular response: (2) Cardiac arrest with pulseless electrical activity: (3) Anaphylaxis: QUALIFIERS: Encounter type: initial encounter Qualified Code(s): T78.2XXA - Anaphylactic shock, unspecified, initial encounter (4) Respiratory failure: QUALIFIERS: Chronicity: acute on chronic Respiratory failure comp lication: hypercapnia Qualified Code(s): J96.22 - Acute and chronic respiratory failure with hypercapnia PLAN: Plan RECOMMENDATIONS: 1. Likely discontinue antibiotics once cultures negative 2. Continue aggressive control of blood pressure 3. Continue steroids for 48 hours 4. BiPAP rescue if necessary 5. Monitor intensive care unit for another 24 hours IMPRESSIONS: 1. Acute on chronic combined respiratory failure secondary to cardiopulmonary arrest secondary to anaphylaxis Patient does have significant underlying lung disease, but likely had an element of anaphylaxis leading to an arrest. It is unclear if this is secondary to a respiratory or cardiac etiology. Patient appears to have responded well to current therapy. Lip swelling was significantly improved, so patient was extubated with 1 racemic epi. Patient is on empiric antibiotics, but has received multiple doses of antibiotics recently. There was a question of upper lobe infiltrates. Patient does not appear to have any anoxic injury associated with this event, but will have to wait for extubation and reevaluate. 2. Hypertensive emergency/anxiety disorder Patient with significant decompensation when systolics were greater than 190. Unclear if this is related to anxiety versus having anxiety as a result of her pulmonary edema. Patient has not been receiving Imdur secondary to an inability to crush. Hopefully this can be started soon once patient passes swallow study. Defer to primary service if cardiology needs to be involved. 3. A-fib with RVR status post cardioversion Patient noted to have A-fib with RVR on ROSC. Patient did receive a cardioversion. This would exacerbate patient's underlying diastolic heart failure, but x-ray appears to show patient is tolerating relatively well. Pat ient is back on her baseline medications. 3. 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 Patient has had significant issues with anxiety in the past.. Patient would likely benefit from nocturnal CPAP on extubation, but has not tolerated this in the past. TIME: 33 minutes critical care time spent addressing patient's acute on chronic respiratory failure, anaphylaxis, arrest, review of all data and collaboration with care team Subjective Subjective Patient did okay overnight. Patient did tolerate a spontaneous breathing trial this morning. Patient's leak test was marginal, but she did have over 200 cc of loss tidal volume. Patient was very emphatic that the endotracheal tube be removed. Patient was successfully extubated after examination using a racemic e pi shortly after extubation with good response. Patient states that she is doing well at this time Objective Data Objective Data Vital Signs: Vital Signs Temp Pulse Resp BP Pulse Ox O2 Del Method O2 Flow Rate 36.3 C L 86 13 161/74 H 99 Mechanical Ventilator 4 06/01/23 04:00 06/01/23 05:03 06/01/23 05:03 06/01/23 05:00 06/01/23 05:03 06/01/23 05:00 05/30/23 22:26 FiO2 30 06/01/23 05:00 Oxygen Flow Rate (L/min) 4 Oxygen Delivery Method Mechanical Ventilator Weight: 99.6 kg Body Mass Index (BMI) 40.4 Intake & Output: Intake and Output for Last 24 Hours 05/30/23 05/31/23 06/01/23 23:59 23:59 23:59 Intake Total 7.84 / 16.60 1866.68 / 1887.78 168.1 / 168.1 Output Total 1875 / 1875 Balance 7.84 / -23.40 -8.32 / 12.78 168.1 / 168.1 Lab / Micro Data Attestation: I reviewed the patient's lab results. 06/01/23 03:10 06/01/23 03:10 Labs: Laboratory Results - last 24 hr 05/30/23 20:30: Total Creatine Kinase 119, Triglycerides 113 05/31/23 11:34: POC Glucose 305 H 05/31/23 17:18: POC Glucose 282 H 05/31/23 22:23: POC Glucose 260 H 06/01/23 00:21: POC Glucose 269 H 06/01/23 03:10: WBC 13.3 H, RBC 3.47 L, Hgb 10.0 L, Hct 32.0 L, MCV 92.2, MCH 28.8, MCHC 31.3 L, RDW Std Deviation 42.5, RDW Coeff of Malcom 12.6, Plt Count 295, MPV 10.4, Immature Gran % (Auto) 0.900, Neut % (Auto) 86.9 H, Lymph % (Auto) 6.5 L, Caldwell % (Auto) 5.6, Eos % (Auto) 0.0, Baso % (Auto) 0.1, Absolute Neuts (auto) 11.6 H, Absolute Lymphs (auto) 0.86, Nucleated RBC % 0, Sodium 137, Potassium 3.9, Chloride 102, Carbon Dioxide 30.0, Anion Gap 5, BUN 25 H, Creatinine 0.91, Estim Creat Clear Calc 42.79, Est GFR (MDRD) Af Amer 78, Est GFR (MDRD) Non-Af 65, BUN/Creatinine Ratio 27.4 H, Glucose 256 H, Calcium 8.8, Total Bilirubin 0.30, AST 18, ALT 60 H, Alkaline Phosphatase 111, Total Protein 6.0 L, Albumin 2.9 L, Globulin 3.1, Albumin/Globulin Ratio 0.9 06/01/23 05:40: POC Glucose 212 H Micro: Microbiology 05/31/23 00:20 Sputum, Induced/Lukens Gram Stain - Final Rhythm Strip Rhythm Strip: Sinus Rhythm Rate: 86 Ectopy: None Physical Exam Const alert Constitutional Narrative: RASS +1 General Appearance: cooperative, comfortable, well kempt and well developed Nutritional Appearance: morbidly obese HEENT normocephalic, head/scalp atraumatic, hearing grossly normal bilaterally and moist oral mucous membranes HEENT Narrative: No significant tongue or lip swelling Eyes PERRL, EOMs intact bilaterally and conjunctivae normal Eyes Narrative: No scleral icterus Neck no lymphadenopathy and supple Neck Narrative: Trachea midline, no thyroid enlargement Resp normal respiratory effort, no retractions and no use of accessory muscles Resp Narrative: Few scattered end expiratory wheezes Auscultation: wheezes; Negative for rales or rhonchi Cardio regular rate, regular rhythm, S1 normal heart sound, S2 normal heart sound, no murmurs, no rub, no gallops and no clicks GI normal to inspection, nondistended, normoactive bowel sounds, soft to palpation and non-tender Extremity no clubbing, cyanosis or edema Extremity Narrative: Pedal pulses are 2+, onychomycosis bilateral lower extremities Skin no rashes or lesions noted, no wounds, skin turgor normal and no jaundice Neuro CN's II-XII intact bilaterally, moves all extremities and no focal motor deficits Neuro Narrative: Very minimal generalized weakness with proximal musculature being weaker than distal Speech: speech normal Psych Mood & Affect: anxious Charges/Coding Procedures Hospitalists Procedures: 08616 Critial Care 1st Hr
[2023-06-01] MEDS: Ipratropium/Albuterol Sulfate 3 ML AMPUL.NEB INHALATION ×4 (06:54→18:49)
--- NOTE | 2023-06-01 07:00 | PCM.PN.HOSP ---
Reason for Visit Reason for Visit: Diagnoses Cardiac arrest, cause unspecified (05/30/23) Unspecified atrial fibrillation (05/30/23) Chronic obstructive pulmonary disease with (acute) exacerbation (05/30/23) Acute and chronic respiratory failure with hypercapnia (05/30/23) Anaphylactic shock, unspecified, initial encounter (05/30/23) Subjective Subjective Reports feeling little bit short of breath and having chest pain but she has difficult time telling its chest wall pain or deeper Objective Data Objective Data Vital Signs: Vital Signs Temp Pulse Resp BP Pulse Ox O2 Del Method O2 Flow Rate 97.3 F L 88 30 H 174/73 H 96 Nasal Cannula 4 06/01/23 04:00 06/01/23 06:56 06/01/23 06:56 06/01/23 06:00 06/01/23 06:56 06/01/23 06:56 06/01/23 06:56 FiO2 40 06/01/23 06:56 Oxygen Flow Rate (L/min) 4 Oxygen Delivery Method Nasal Cannula Weight: 99.6 kg Body Mass Index (BMI) 40.4 Intake & Output: Intake and Output for Last 24 Hours 05/30/23 05/31/23 06/01/23 23:59 23:59 23:59 Intake Total 7.84 / 16.60 1866.68 / 1887.78 173.1 / 173.1 Output Total 1875 / 1875 400 / 400 Balance 7.84 / -23.40 -8.32 / 12.78 -226.9 / -226.9 Lab / Micro Data 06/01/23 03:10 06/01/23 03:10 Labs: Laboratory Results - last 24 hr 05/30/23 20:30: Total Creatine Kinase 119, Triglycerides 113 05/31/23 11:34: POC Glucose 305 H 05/31/23 17:18: POC Glucose 282 H 05/31/23 22:23: POC Glucose 260 H 06/01/23 00:21: POC Glucose 269 H 06/01/23 03:10: WBC 13.3 H, RBC 3.47 L, Hgb 10.0 L, Hct 32.0 L, MCV 92.2, MCH 28.8, MCHC 31.3 L, RDW Std Deviation 42.5, RDW Coeff of Malcom 12.6, Plt Count 295, MPV 10.4, Immature Gran % (Auto) 0.900, Neut % (Auto) 86.9 H, Lymph % (Auto) 6.5 L, Sutton % (Auto) 5.6, Eos % (Auto) 0.0, Baso % (Auto) 0.1, Absolute Neuts (auto) 11.6 H, Absolute Lymphs (auto) 0.86, Nucleated RBC % 0, Sodium 137, Potassium 3.9, Chloride 102, Carbon Dioxide 30.0, Anion Gap 5, BUN 25 H, Creatinine 0.91, Estim Creat Clear Calc 42.79, Est GFR (MDRD) Af Amer 78, Est GFR (MDRD) Non-Af 65, BUN/Creatinine Ratio 27.4 H, Glucose 256 H, Calcium 8.8, Total Bilirubin 0.30, AST 18, ALT 60 H, Alkaline Phosphatase 111, Total Protein 6.0 L, Albumin 2.9 L, Globulin 3.1, Albumin/Globulin Ratio 0.9 06/01/23 05:40: POC Glucose 212 H Micro: Microbiology 05/31/23 00:20 Sputum, Induced/Lukens Gram Stain - Final Rhythm Strip Rhythm Strip: Sinus Rhythm Rate: 86 Ectopy: None Physical Exam Narrative General: Alert, oriented, no apparent distress HEENT: Atraumatic, normocephalic Eyes: Anicteric, normal conjunctiva, extraocular movements grossly intact Neck: Supple Respiratory: Somewhat increased respiratory rate, diminished at the bases Cardiovascular: Regular rate and rhythm GI: Soft, nontender, nondistended Extremities: No edema Musculoskeletal: Moving all extremities Neuro: No overt focal neurological deficits Skin: No rashes appreciated, has skin tags in thickened nails Psych: Cooperative appears anxious Assessment & Plan Assessment/Plan (1) Atrial fibrillation with rapid ventricular response: (2) Cardiac arrest with pulseless electrical activity: (3) COPD exacerbation: PLAN: Plan D/c'd on the morning of presentation after admit for aceopd and pneumonia. This 72-year-old female came to ED after discharge with increased respiratory distress, tachypnea and hypoxia and then CODE BLUE blue after CTA chest, successfully ROSC and then admitted in ICU. #Acute cardiopulmonary arrest after CTA chest concern for possible anaphylactic reaction from IV contrast: Patient is being admitted in ICU. In her allergy list it is mention prednisone causes some mood changes which is known side effect of prednisone/steroid and hives with red dye. ER physician also said patient tongue was swollen and redness of the skin which improved later in the ED. Continue IV Solu-Medrol. Patient is intubated. Had successful ACLS/BLS lasted for 14 minutes with 3 doses of epinephrine. ABG 7.18/68/391 bicarb 28. Bicarb in BMP is 13. Sales And Service Associate consulted -05/31: Remains intubated in ICU, echo pending, still some tongue swelling still remain intubated today and reeval tomorrow -06/01: Extubated, monitor in ICU today, remains on steroids. Likely secondary to anaphylactic reaction but cannot rule out cardiac cause, echo pending, cardiology consulted now that patient awake and noted to be neurologically intact #Acute combined respiratory failure on chronic hypoxic respiratory failure due to acute exacerbation of COPD most likely due to bilateral lower lobes pneumonia organism unspecified, prior to present admission. : Continue bronchodilators DuoNeb every 4 hourly, IV Solu-Medrol, incentive/Pep after extubation, Mucinex. Prior to intubation, chest x-ray initially reviewed shows no acute infiltrate and reported normal. Started on IV ceftriaxone. Continue doxycycline. Patient completed azithromycin course. Patient just had COVID-19 PCR reported normal, respiratory panel normal and urinary antigens normal on 05/29/2023. She had COVID-vaccine and booster. Blood cultures x2 on 05/[address] still pending. Patient follows Dr. Nuno in pulmonary clinic. -05/31: Patient remains on IV Solu-Medrol and nebs, on Rocephin and Doxy, chest x-ray prior to intubation with no acute infiltrate, ICU/pulm consulted, sputum sample obtained and pending -06/01: On steroids, extubated, continue monitoring in ICU, on empiric antibiotics but will likely be able to discontinue #Transient A-fib after ACLS with history of CAD status post PCI ostial diagonal and mid LAD 12/26/2018 : Patient has been in sinus rhythm during previous EKG and EKG done prior to CODE BLUE. It is normal sinus rhythm 92 bpm. After CODE BLUE it was A-fib 138 bpm, QTc 4 8 8 ms. QRS 84 ms. Repeat 2D echo as patient had cardiopulmonary arrest. Patient was successfully cardioverted to sinus rhythm after 300 J by ER physician. Currently in sinus rhythm. Patient was admitted for unstable angina in December 2022 and at that time cardiac cath was done for abnormal stress test. Cardiac cath showed ostial lesion of jailed diagonal branch, patent LAD stent therefore no PCI was done. Continue losartan, metoprolol, isosorbide and Plavix. -05/31: Monitoring on telemetry, may be able to forego anticoagulation given this was Viviana cardiac arrest -06/01: Echo pending, monitor telemetry, as above #Chronic Diastolic CHF: 08/11/2021 echocardiogram with normal LV size, moderate concentric LVH, LV systolic function normal, EF 60%, pulmonary artery systolic pressure 40 mmHg, stage I diastolic dysfunction. Patient is on Lasix 20 mg along with potassium supplement continued. Patient not showing clinical features of acute heart failure exacerbation. -05/31: Monitor I's and O's, daily weights, continue Lasix -06/01: Weight stable thus far, continue to monitor, echo pending, remains on Lasix #Diabetes mellitus type II: Continue home dose of Lantus insulin and lispro insulin. Currently NPO. accu checks every 6 hourly with Humalog sliding scale coverage. Start tube feed in the morning if still not extubated. -05/31: Continue to monitor glucose and adjust as indicated -06/01: Sliding scale every 6 and insulin glargine 30 twice daily #Hypertensive urgency - Blood pressure was high in the ED. BP still 156/97. Continue home regimen including metoprolol, losartan, isosorbide. -05/31: BP in ED 193/91, has improved to 136/57 this a.m., continue present management #Hyperlipidemia: Continue home statin regimen. Fasting profile in December 2022 within normal limit LDL 44, HDL 55. Continue high intensity atorvastatin. #Chronic normocytic anemia: Admission hemoglobin 10.9 g. On baseline. Platelet count normal. #Anxiety and depression: Hold risperidone, citalopram, alprazolam home regimen as patient is sedated on propofol and fentanyl drip -06/01: We will resume home medications #Morbid obesity -BMI 40.6 kg/m? -Complicates treatment, prognosis, outcomes -Recommend weight loss and lifestyle changes #Other comorbidities include obstructive sleep apnea, former smoker: DVT prophylaxis: Lovenox 40 mg subcu daily. Time spent in the patient's overall evaluation,decision-making process, review of diagnostic data, adjustment of management, discussion with other providers, nursing nursing and ancillary staff involved in patient's care documentation, 40 minutes Charges/Coding Visit Charges Inpatient E&M: 08298 Subs Hosp L2
[2023-06-01] MEDS: Enoxaparin 40 MG/0.4 ML Syringe SC (08:42)
[2023-06-01] MEDS: Chlorhexidine 15 ML PO (08:44)
--- NOTE | 2023-06-01 10:14 | CASEMGMT ---
Social Work Bryce of [facility] called regarding patient. Bryce is requesting [facility] be called upon patient discharge. Venus Jacobsen NETWORK DEVELOPER, BURRING MACHINE OPERATOR
[2023-06-01 11:26] LABS: Bedside Glucose 146 mg/dL (74-106)
--- NOTE | 2023-06-01 11:53 | CHAPLAIN ---
Type of Pastoral Visit _x__ Initial Visit ___ Follow-up Visit ___ On-call Visit ___ General Patient Visit ___ Spiritual Assessment ___ Family Conference ___ Bereavement ___ Rapid Response ___ Code Blue ___ Other (describe below) Pastoral Care Referral From _x__ Patient ___ Family ___ Nurse ___ Physician ___ Cartography Professor ___ Finish Repairer ___ Other (describe below) Sacrament/Intervention ___ Active listening ___ Anointing ___ Caodaism ___ Bereavement ___ Communion ___ Milagro exploration ___ ___ Life review _x__ Prayer ___ Reconciliation ___ Sacrament of Sick _x__ Supportive presence ___ Wedding ___ Other (describe below) Pastoral Comments patient is on the bi-pap but alert and able to communicate through hand signals and mouthing the answers; pt states that a prayer would be appreciated; pt states that she is doing ok but gets tearful when reminded of God's love and the care of the staff; offer of ongoing support given as needed
--- NOTE | 2023-06-01 13:34 | CON.PCM.CA_ITS ---
Assessment & Plan Assessment/Plan (1) Cardiopulmonary arrest with successful resuscitation: PLAN: PEA cardiac arrest reported. I could not find rhythm strips. Apparently patient was noted to have a swollen tongue and lip swelling as well. Consider cardiac arrest either secondary to anaphylactic reaction versus severe COPD exacerbation with hypoxia. Normal left ventricular systolic function. Troponin was negative. (2) Atrial fibrillation with rapid ventricular response: PLAN: Postresuscitation. Presently maintaining normal sinus rhythm. Continue clopidogrel. If recurrence of atrial fibrillation, then will consider anticoagulation. (3) History of CAD (coronary artery disease): PLAN: Coronary angiography done and December of this year showed patent stent to the LAD with no other obstructive disease. Continue medical management. (4) Anaphylaxis: QUALIFIERS: Encounter type: initial encounter Qualified Code(s): T78.2XXA - Anaphylactic shock, unspecified, initial encounter PLAN: As per internal medicine. (5) History of diabetes mellitus: PLAN: As per internal medicine. (6) COPD exacerbation: PLAN: Pulmonology/internal medicine following. (7) Bilateral pneumonia: QUALIFIERS: Pneumonia type: due to unspecified organism Lung location: lower lobe of lung Qualified Code(s): J18.9 - Pneumonia, unspecified organism PLAN: As per pulmonology. HPI Consult Data Date of Consult: 06/01/23 HPI Narrative Reason for Consultation: Cardiopulmonary arrest HPI Narrative: This lady has past medical history significant for diabetes mellitus, hypertension, severe COPD and coronary artery disease with percutaneous intervention to her LAD in the past. Her most recent coronary angiography was about 5 months ago which revealed patent stent to the LAD and no other significant disease. Patient was only recently discharged from the hospital after admission and treatment for COPD exacerbation. However that same day, she presented to the emergency room again complaining of shortness of breath. She was in the process of work-up for her hypoxia and shortness of breath. She was in the CT scan department for CT angio of her chest when she reportedly had a PEA arrest. CPR was commenced. She was successfully resuscitated.There are reports of there is documentation about lip swelling and tongue swelling and so consideration is being given to an anaphylactic reaction to IV contrast media. Continues to complain of shortness of breath this afternoon. According to her, her chest hurts whenever she tries to take a deep breath. FORMERLY [facility] Medical History Anemia Anxiety and depression Asthma with COPD Atherosclerotic heart disease of kashia coronary artery without angina pectoris Back pain Chest pain Chronic back pain Chronic respiratory failure COPD (chronic obstructive pulmonary disease) Diastolic CHF Former smoker Hepatitis HLD (hyperlipidemia) Hypertension Morbid obesity Obesity MARK treated with BiPAP Psoriasis Smoking greater than 40 pack years Thyroid nodule Type 2 diabetes mellitus Home Medications Handicap Placard #1 ea 12/12/20 [Rx Last Taken Unknown] bisacodyl 5 mg tablet,delayed release (Dulcolax (bisacodyl)) 5 mg PO QHS PRN con stipation 30 days #30 tabs 11/13/21 [Rx Last Taken Unknown] pen needle, diabetic 32 gauge x #50 ea 02/11/22 [Rx Last Taken Unknown] blood sugar diagnostic (True Metrix Glucose Test Strip) #100 ea 09/11/22 [Rx Last Taken Unknown] blood-glucose meter (True Metrix Glucose Meter) #1 ea 09/11/22 [Rx Last Taken Unknown] albuterol sulfate 90 mcg/actuation aerosol inhaler 2 puff inhalation Q6H PRN s hortness of breath or wheezing #18 grams 11/06/22 [Rx Last Taken Unknown] ipratropium 0.5 mg-albuterol 3 mg (2.5 mg base)/3 mL nebulization soln 3 ml inhalation Q4H PRN PRN SOB &/OR WHEEZING #180 mL 11/10/22 [Rx Last Taken Unknown] cane #1 ea 11/16/22 [Rx Last Taken Unknown] citalopram 40 mg tablet 40 mg PO QHS depression #90 tabs 11/16/22 [Rx Last Taken Unknown] risperidone 1 mg tablet 1 mg PO QHS anxiety #90 tabs 12/07/22 [Rx Last Taken Unknown] isosorbide mononitrate 60 mg tablet,extended release 24 hr 60 mg PO DAILY BP #90 tabs 12/26/22 [Rx Last Taken Unknown] nitroglycerin 0.4 mg sublingual tablet 0.4 mg sublingual Q5-15M PRN Pain #30 tabs 12/26/22 [Rx Last Taken Unknown] flash glucose sensor (FreeStyle Emily 2 Sensor kit) #2 ea 01/06/23 [Rx Last Taken Unknown] atorvastatin 80 mg tablet 80 mg PO QHS cholesterol 01/26/23 [History Last Taken Unknown] clopidogrel 75 mg tablet 75 mg PO DAILY blood thinner 01/26/23 [History Last Taken Unknown] furosemide 20 mg tablet (Lasix) 20 mg PO DAILY diuretic 01/26/23 [History Last Taken Unknown] losartan 25 mg tablet 25 mg PO DAILY blood pressure 01/26/23 [History Last Taken Unknown] metoprolol tartrate 25 mg tablet 12.5 mg PO BID blood pressure 01/26/23 [History Last Taken Unknown] flash glucose scanning reader (Busap Emily 2 [place]) #1 ea 03/23/23 [Rx Last Taken Unknown] ondansetron HCl 4 mg tablet 4 mg PO Q6H PRN nausea and vomiting #14 tabs 04/16/23 [Rx Last Taken Unknown] sucralfate 1 gram tablet (Carafate) 1 g PO TID PRN acid reflux #20 tabs 04/16/23 [Rx Last Taken Unknown] insulin glargine 100 unit/mL (3 mL) subcutaneous pen (Basaglar KwikPen U-100 Insulin) 36 unit (0.36 mL) subcut DAILY diabetic managment #42 mL 05/06/23 [Rx Last Taken Unknown] insulin lispro 100 unit/mL subcutaneous pen (Humalog KwikPen (U-100) Insulin) 20 unit (0.2 mL) subcut TID diabetes #72 mL 05/06/23 [Rx Last Taken Unknown] alprazolam 0.25 mg tablet 0.25 mg PO QHS anxiety #30 tabs 05/12/23 [Rx Last Taken Unknown] pantoprazole 40 mg tablet,delayed release 40 mg PO BID stomach #180 tabs 05/20/23 [Rx Last Taken Unknown] potassium chloride 20 mEq tablet,extended release 20 meq PO DAILY #3 tabs 05/25/23 [Rx Last Taken Unknown] doxycycline hyclate 100 mg tablet 100 mg PO BID #10 tabs 05/30/23 [Rx Last Taken Unknown] prednisone 20 mg tablet 40 mg (2 x 20 mg) PO DAILY #10 tabs 05/30/23 [Rx Last Taken Unknown] Allergy/AdvReac Type Severity Reaction Status Date / Time Iodinated Contrast Media Allergy Severe Anaphylaxis Verified 05/31/23 06:34 amoxicillin [Amoxicillin] Allergy Intermediate Rash Verified 05/28/23 22:22 hydrocodone Allergy Intermediate SWELLING Verified 05/28/23 22:22 gabapentin [From Neurontin] Allergy Shortness Verified 05/28/23 22:22 of breath levofloxacin [From Levaquin] Allergy Hives Verified 05/28/23 22:22 pseudoephedrine HCl Allergy Shortness Verified 05/28/23 22:22 [From Sudafed] of breath red dye Allergy Hives Verified 05/28/23 22:22 prednisone AdvReac Severe mean mood Verified 05/28/23 22:22 clonazepam [From Klonopin] AdvReac Depression Verified 05/28/23 22:22 codeine AdvReac HEADACHE Verified 05/28/23 22:22 Family History Brother Heart disease Mother Colon cancer Heart disease Surgical History History of cholecystectomy History of left heart catheterization (LHC) (~09/23/20) Stented coronary artery (12/28/18) Social History Smoking Status: Former smoker pack-years: 40 how long ago did patient quit smokin year ago alcohol intake: never substance use type: does not use caffeine: Yes Type: carbonated beverages and tea what type of physical activity do you participate in: none Physical Exam Narrative Appears moderately short of breath. Heart sounds 1 and 2 are noted. Tachycardic. Chest examination shows decreased air entry bilaterally. Alert oriented x3. No ankle edema noted. Risk Stratification Risk Stratification Applicable: No Objective Data Vital Signs: Vital Signs Temp Pulse Resp BP Pulse Ox O2 Del Method O2 Flow Rate 99.8 F H 80 21 H 151/57 H 100 Bi-pap 4 06/01/23 12:00 06/01/23 12:00 06/01/23 12:00 06/01/23 12:00 06/01/23 12:00 06/01/23 12:00 06/01/23 09:00 FiO2 40 06/01/23 12:00 Oxygen Flow Rate (L/min) 4 Oxygen Delivery Method Bi-pap Weight: 219 lb 9.286 oz Body Mass Index (BMI) 40.4 Intake & Output: Intake and Output for Last 24 Hours 05/30/23 05/31/23 06/01/23 23:59 23:59 23:59 Intake Total 7.84 / 16.60 1866.68 / 1887.78 173.1 / 173.1 Output Total 1875 / 1875 600 / 600 Balance 7.84 / -23.40 -8.32 / 12.78 -426.9 / -426.9 Lab / Micro Data Attestation: I reviewed the patient's lab results. 06/01/23 03:10 06/01/23 03:10 Labs: Laboratory Results - last 24 hr 05/31/23 17:18: POC Glucose 282 H 05/31/23 22:23: POC Glucose 260 H 06/01/23 00:21: POC Glucose 269 H 06/01/23 03:10: WBC 13.3 H, RBC 3.47 L, Hgb 10.0 L, Hct 32.0 L, MCV 92.2, MCH 28.8, MCHC 31.3 L, RDW Std Deviation 42.5, RDW Coeff of Malcom 12.6, Plt Count 295, MPV 10.4, Immature Gran % (Auto) 0.900, Neut % (Auto) 86.9 H, Lymph % (Auto) 6.5 L, [place] % (Auto) 5.6, Eos % (Auto) 0.0, Baso % (Auto) 0.1, Absolute Neuts (auto) 11.6 H, Absolute Lymphs (auto) 0.86, Nucleated RBC % 0, Sodium 137, Potassium 3.9, Chloride 102, Carbon Dioxide 30.0, Anion Gap 5, BUN 25 H, Creatinine 0.91, Estim Creat Clear Calc 42.79, Est GFR (MDRD) Af Amer 78, Est GFR (MDRD) Non-Af 65, BUN/Creatinine Ratio 27.4 H, Glucose 256 H, Calcium 8.8, Total Bilirubin 0.30, AST 18, ALT 60 H, Alkaline Phosphatase 111, Total Protein 6.0 L, Albumin 2.9 L, Globulin 3.1, Albumin/Globulin Ratio 0.9 06/01/23 05:40: POC Glucose 212 H 06/01/23 11:08: POC Glucose 146 H Micro: Microbiology 05/31/23 00:20 Sputum, Induced/Lukens Gram Stain - Final 05/31/23 00:20 Sputum, Induced/Lukens Respiratory Culture - Preliminary Presumptive C albicans Rhythm Strip Rhythm Strip: Sinus Rhythm Rate: 86 Ectopy: None Cardiology Labs/Tests 06/01/23 03:10: WBC 13.3 H, RBC 3.47 L, Hgb 10.0 L, Hct 32.0 L, MCV 92.2, MCH 28.8, MCHC 31.3 L, Plt Count 295, MPV 10.4, Immature Gran % (Auto) 0.900, Neut % (Auto) 86.9 H, Lymph % (Auto) 6.5 L, [place] % (Auto) 5.6, Eos % (Auto) 0.0, Baso % (Auto) 0.1, Absolute Neuts (auto) 11.6 H, Nucleated RBC % 0, Sodium 137, Potassium 3.9, Chloride 102, Carbon Dioxide 30.0, Anion Gap 5, BUN 25 H, Creatinine 0.91, Est GFR (MDRD) Af Amer 78, Est GFR (MDRD) Non-Af 65, BUN/Creatinine Ratio 27.4 H, Glucose 256 H, Calcium 8.8, Total Bilirubin 0.30 Rhythm: Sinus rhythm EKG: Postresuscitation ECG showed atrial fibrillation with rapid ventricular response. Converted back to normal sinus rhythm spontaneously. ECHO:Normal left normal left ventricular systolic function. Mild to moderate moderate eccentric mitral regurgitation. Stress Test: Cardiac Cath: PCI: CT Surgery: Holter monitor: EPS: PPM: CXR: Chest CT Scan: Radiography Diagnostic Testing: Radiology Impression Echocardiogram 05/31/23 00:25 Interpretation Summary Mild concentric left ventricular hypertrophy. The left ventricular ejection fraction is 65 %. Mildly dilated right ventricle. The left atrium is mildly enlarged. Right ventricular systolic pressure estimated to be 43 mmHg. Mild-Moderate (1-2+) posteriorly directed mitral valve insufficiency. The study was technically difficult. Ordering Physician: Nico Sweet Referring Physician: Billy Madera Performed By: Barbara Alonzo, KAMRYN, RVT
[2023-06-01] MEDS: Ketorolac 15 MG/ML Vial IV ×3 (14:57→23:37)
[2023-06-01] MEDS: Metoprolol Tartrate 5 MG/5 ML Vial 2.5 MG IV ×2 (17:12→23:37)
[2023-06-01 17:17] LABS: Bedside Glucose 182 mg/dL (74-106)
[2023-06-01] MEDS: hydrALAZINE 20 MG/ML Vial 10 MG IV (17:48)
[2023-06-01] MEDS: LORazepam 2 MG/ML Syringe 1 MG IV (20:38)
[2023-06-01] MEDS: Insulin Glargine-YFGN 100 UNIT/ML Pen 30 UNIT SC (20:42)
[2023-06-02] VITALS (26 sets, daily range): BP systolic 147–187; BP diastolic 55–102; PULSE 61–85; RESP 12–34; TEMP 36.6–37.4; O2SAT 93–100; BMI 39.8
[2023-06-02 00:03] LABS: Bedside Glucose 201 mg/dL (74-106)
[2023-06-02 00:05] LABS: Bedside Glucose 191 mg/dL (74-106)
[2023-06-02] MEDS: LORazepam 2 MG/ML Syringe 1 MG IV (04:16)
[2023-06-02] MEDS: 0.9% Saline Lock 10 ML Syringe IV ×4 (04:16→17:54)
[2023-06-02 04:32] LABS: Absolute Lymphocyte Count 1.14 X10^3/uL (0.83-4.51); Absolute Neutrophil Count 14.4 X10^3/uL (2.0-7.7); Basophil# 0.04 X10^3/uL; Basophil% 0.2 % (0-1); Hematocrit 34.5 % (37-47); Hemoglobin 10.8 g/dL (12.0-15.0); Lymphocyte # 1.14 X10^3/ul (0.83-4.51); Lymphocyte % 6.8 % (19-41); Mean Corp Hgb Conc 31.3 g/dL (32-36); Mean Corpuscular Hgb 28.8 pg (27.0-32.0); Mean Platelet Vol. 10.6 fl (6.2-12.0); Monocyte# 1.07 X10^3/uL; Monocyte% 6.4 % (0-10); NRBC Flagged by Analyzer 0 % (0-5); Neutrophil # 14.35 X10^3/uL (2.7-7.7); Neutrophil % 85.6 % (47-70); Platelet Count 357 K/mm3 (150-450); RBC Distribution Width CV 12.6 % (11.6-14.6); RBC Distribution Width SD 42.5 fl (35.1-43.9); Red Blood Count 3.75 M/mm3 (4.2-5.4); White Blood Count 16.8 K/mm3 (4.4-11.0)
[2023-06-02 05:19] LABS: ALB/GLOB Ratio 0.9 RATIO (0.9-2.4); AST(SGOT) 27 U/L (15-37); Alanine Aminotransfer ALT/SGPT 50 U/L (13-56); Albumin, Serum 3.2 g/dL (3.2-5.0); Alkaline Phosphatase 116 U/L (45-117); Anion Gap 3 (5-15); BUN 36 mg/dL (7-18); BUN/Creat Ratio 39.3 RATIO (10-20); Chloride 105 mmol/L (98-107); Creatinine, Serum 0.92 mg/dL (0.55-1.02); EST Glomerular Filtration Rate 64 mL/min (>60); Est Glom Filt Rate - Afr Amer 78 mL/min (>60); Estimated Creatinine Clearance 42.32 ml/min; Globulin 3.4 g/dL (2.2-4.2); Glucose 152 mg/dL (74-106); Potassium 4.2 mmol/L (3.5-5.1); Protein, Total 6.6 g/dL (6.4-8.2); Sodium Level 139 mmol/L (136-145)
[2023-06-02] MEDS: Metoprolol Tartrate 5 MG/5 ML Vial 2.5 MG IV (05:30)
[2023-06-02] MEDS: Methylprednisolone Sod Succ 40 MG/ML VIAL IV ×3 (05:30→20:38)
[2023-06-02] MEDS: Insulin Lispro 100 UNIT/ML INSULN.PEN SC ×4 (05:30→20:44)
--- NOTE | 2023-06-02 06:37 | PCM.PN.INT ---
Assessment & Plan Assessment/Plan (1) Atrial fibrillation with rapid ventricular response: (2) Cardiac arrest with pulseless electrical activity: (3) Anaphylaxis: QUALIFIERS: Encounter type: initial encounter Qualified Code(s): T78.2XXA - Anaphylactic shock, unspecified, initial encounter (4) Respiratory failure: QUALIFIERS: Chronicity: acute on chronic Respiratory failure complication: hypercapnia Qualified Code(s): J96.22 - Acute and chronic respiratory failure with hypercapnia PLAN: Plan RECOMMENDATIONS: 1. Discontinue antibiotics 2. Continue aggressive control of blood pressure 3. Continue steroids for 24 hours 4. BiPAP rescue if necessary 5. Okay to leave the intensive care unit from my perspective 6. Reinitiate baseline medications if able to pass a swallow study IMPRESSIONS: 1. Acute on chronic combined respiratory failure secondary to cardiopulmonary arrest secondary to anaphylaxis Patient does have significant underlying lung disease, but likely had an element of anaphylaxis leading to an arrest. It is unclear if this is secondary to a respiratory or cardiac etiology. Patient appears to have responded well to current therapy. Patient tolerated extubation well. Patient remains on BiPAP with sleep. Cultures are showing only Shira, so antibiotics will be discontinued. There was a question of upper lobe infiltrates. Patient does not appear to have any anoxic injury associated with this event, but will have to wait for extubation and reevaluate. 2. Hypertensive emergency/anxiety disorder Patient with significant decompensation when systolics were greater than 190. Unclear if this is related to anxiety versus having anxiety as a result of her pulmonary edema. Patient currently n.p.o., so some IV BP meds had to be initiated. Hopefully this can be started soon once patient passes swallow study. Cardiology is not planning any acute interventions 3. A-fib with RVR status post cardioversion Patient noted to have A-fib with RVR on ROSC. Patient did receive a cardioversion. This would exacerbate patient's underlying diastolic heart failure, but x-ray appears to show patient is tolerating relatively well. Patient is back on her baseline medications. Cardiology is suggesting that systemic anticoagulation would not be indicated at this time. 3. 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 Patient has had significant issues with anxiety in the past.. Patient would likely benefit from nocturnal CPAP on extubation, but has not tolerated this in the past. Subjective Subjective Patient did okay overnight. Unfortunately, patient failed her swallow study, so was not able to be placed on her baseline medications. Patient with some agitation overnight and did receive Ativan x2. Patient is slightly confused this morning, but has been going between her baseline oxygen and BiPAP overnight. Patient is not reporting any pain at this time. Objective Data Objective Data Vital Signs: Vital Signs Temp Pulse Resp BP Pulse Ox O2 Del Method O2 Flow Rate 37.2 C 64 18 171/67 H 98 Bi-pap 4 06/02/23 04:00 06/02/23 06:00 06/02/23 06:00 06/02/23 06:00 06/02/23 06:00 06/02/23 06:00 06/01/23 22:00 FiO2 30 06/02/23 06:00 Oxygen Flow Rate (L/min) 4 Oxygen Delivery Method Bi-pap Weight: 98.1 kg Body Mass Index (BMI) 39.8 Intake & Output: Intake and Output for Last 24 Hours 05/31/23 06/01/23 06/02/23 23:59 23:59 23:59 Intake Total 1866.68 / 1887.78 173.1 / 173.1 Output Total 1875 / 1875 950 / 1150 400 / 400 Balance -8.32 / 12.78 -776.9 / -976.9 -400 / -400 Lab / Micro Data Attestation: I reviewed the patient's lab results. 06/02/23 04:25 06/02/23 04:25 Labs: Laboratory Results - last 24 hr 06/01/23 11:08: POC Glucose 146 H 06/01/23 16:58: POC Glucose 182 H 06/01/23 20:41: POC Glucose 191 H 06/01/23 23:39: POC Glucose 201 H 06/02/23 04:25: WBC 16.8 H, RBC 3.75 L, Hgb 10.8 L, Hct 34.5 L, MCV 92.0, MCH 28.8, MCHC 31.3 L, RDW Std Deviation 42.5, RDW Coeff of Malcom 12.6, Plt Count 357, MPV 10.6, Immature Gran % (Auto) 1.000 H, Neut % (Auto) 85.6 H, Lymph % (Auto) 6.8 L, [place] % (Auto) 6.4, Eos % (Auto) 0.0, Baso % (Auto) 0.2, Absolute Neuts (auto) 14.4 H, Absolute Lymphs (auto) 1.14, Nucleated RBC % 0, Sodium 139, Potassium 4.2, Chloride 105, Carbon Dioxide 31.0, Anion Gap 3 L, BUN 36 H, Creatinine 0.92, Estim Creat Clear Calc 42.32, Est GFR (MDRD) Af Amer 78, Est GFR (MDRD) Non-Af 64, BUN/Creatinine Ratio 39.3 H, Glucose 152 H, Calcium 9.0, Total Bilirubin 0.40, AST 27, ALT 50, Alkaline Phosphatase 116, Total Protein 6.6, Albumin 3.2, Globulin 3.4, Albumin/Globulin Ratio 0.9 Micro: Microbiology 05/31/23 00:20 Sputum, Induced/Lukens Gram Stain - Final 05/31/23 00:20 Sputum, Induced/Lukens Respiratory Culture - Preliminary Presumptive C albicans Radiography Diagnostic Testing: Radiology Impression Echocardiogram 05/31/23 00:25 Interpretation Summary Mild concentric left ventricular hypertrophy. The left ventricular ejection fraction is 65 %. Mildly dilated right ventricle. The left atrium is mildly enlarged. Right ventricular systolic pressure estimated to be 43 mmHg. Mild-Moderate (1-2+) posteriorly directed mitral valve insufficiency. The study was technically difficult. Ordering Physician: Nico Sweet Referring Physician: Billy Madera Performed By: Barbara Alonzo, RDCS, RVT Rhythm Strip Rhythm Strip: Sinus Rhythm Rate: 65 Ectopy: None Physical Exam Const alert Constitutional Narrative: RASS +1 General Appearance: cooperative, comfortable, well kempt and well developed Nutritional Appearance: morbidly obese HEENT normocephalic, head/scalp atraumatic, hearing grossly normal bilaterally and moist oral mucous membranes Eyes PERRL, EOMs intact bilaterally and conjunctivae normal Eyes Narrative: No scleral icterus Neck no lymphadenopathy and supple Neck Narrative: Trachea midline, no thyroid enlargement Resp normal respiratory effort, no retractions and no use of accessory muscles Resp Narrative: Coarse breath sounds on BiPAP Auscultation: wheezes; Negative for rales or rhonchi Cardio regular rate, regular rhythm, S1 normal heart sound, S2 normal heart sound, no murmurs, no rub, no gallops and no clicks GI normal to inspection, nondistended, normoactive bowel sounds, soft to palpation and non-tender Extremity no clubbing, cyanosis or edema Extremity Narrative: Pedal pulses are 2+, onychomycosis bilateral lower extremities Skin no rashes or lesions noted, no wounds, skin turgor normal and no jaundice Neuro CN's II-XII intact bilaterally, moves all extremities and no focal motor deficits Neuro Narrative: Very minimal generalized weakness with proximal musculature being weaker than distal Speech: speech normal Psych affect normal Activity / Motor Behavior: restless Charges/Coding Visit Charges Inpatient E&M: [id number] Subs Hosp L3
--- NOTE | 2023-06-02 07:04 | PCM.PN.HOSP ---
Reason for Visit Reason for Visit: Diagnoses Cardiac arrest, cause unspecified (05/30/23) Unspecified atrial fibrillation (05/30/23) Pneumonia, unspecified organism (05/30/23) Chronic obstructive pulmonary disease with (acute) exacerbation (05/30/23) Acute and chronic respiratory failure with hypercapnia (05/30/23) Anaphylactic shock, unspecified, initial encounter (05/30/23) Personal history of other endocrine, nutritional and metabolic disease (05/30/23) Personal history of other diseases of the circulatory system (05/30/23) Subjective Subjective Patient still with some chest wall pain but breathing improving, anxious to be able to start eating and drinking Objective Data Objective Data Vital Signs: Vital Signs Temp Pulse Resp BP Pulse Ox O2 Del Method O2 Flow Rate 98.6 F 64 19 H 175/72 H 100 Nasal Cannula 4 06/02/23 07:00 06/02/23 07:00 06/02/23 07:00 06/02/23 07:00 06/02/23 07:00 06/02/23 07:00 06/02/23 07:00 FiO2 30 06/02/23 06:00 Oxygen Flow Rate (L/min) 4 Oxygen Delivery Method Nasal Cannula Weight: 98.1 kg Body Mass Index (BMI) 39.8 Intake & Output: Intake and Output for Last 24 Hours 05/31/23 06/01/23 06/02/23 23:59 23:59 23:59 Intake Total 1866.68 / 1887.78 173.1 / 173.1 Output Total 1875 / 1875 950 / 1150 400 / 400 Balance -8.32 / 12.78 -776.9 / -976.9 -400 / -400 Lab / Micro Data 06/02/23 04:25 06/02/23 04:25 Labs: Laboratory Results - last 24 hr 06/01/23 11:08: POC Glucose 146 H 06/01/23 16:58: POC Glucose 182 H 06/01/23 20:41: POC Glucose 191 H 06/01/23 23:39: POC Glucose 201 H 06/02/23 04:25: WBC 16.8 H, RBC 3.75 L, Hgb 10.8 L, Hct 34.5 L, MCV 92.0, MCH 28.8, MCHC 31.3 L, RDW Std Deviation 42.5, RDW Coeff of Malcom 12.6, Plt Count 357, MPV 10.6, Immature Gran % (Auto) 1.000 H, Neut % (Auto) 85.6 H, Lymph % (Auto) 6.8 L, Wetzel % (Auto) 6.4, Eos % (Auto) 0.0, Baso % (Auto) 0.2, Absolute Neuts (auto) 14.4 H, Absolute Lymphs (auto) 1.14, Nucleated RBC % 0, Sodium 139, Potassium 4.2, Chloride 105, Carbon Dioxide 31.0, Anion Gap 3 L, BUN 36 H, Creatinine 0.92, Estim Creat Clear Calc 42.32, Est GFR (MDRD) Af Amer 78, Est GFR (MDRD) Non-Af 64, BUN/Creatinine Ratio 39.3 H, Glucose 152 H, Calcium 9.0, Total Bilirubin 0.40, AST 27, ALT 50, Alkaline Phosphatase 116, Total Protein 6.6, Albumin 3.2, Globulin 3.4, Albumin/Globulin Ratio 0.9 Micro: Microbiology 05/31/23 00:20 Sputum, Induced/Lukens Gram Stain - Final 05/31/23 00:20 Sputum, Induced/Lukens Respiratory Culture - Preliminary Presumptive C albicans Radiography Diagnostic Testing: Radiology Impression Echocardiogram 05/31/23 00:25 Interpretation Summary Mild concentric left ventricular hypertrophy. The left ventricular ejection fraction is 65 %. Mildly dilated right ventricle. The left atrium is mildly enlarged. Right ventricular systolic pressure estimated to be 43 mmHg. Mild-Moderate (1-2+) posteriorly directed mitral valve insufficiency. The study was technically difficult. Ordering Physician: Nico Sweet Referring Physician: Billy Madera Performed By: Barbara Alonzo, KAMRYN, RVT Rhythm Strip Rhythm Strip: Sinus Rhythm Rate: 65 Ectopy: None Physical Exam Narrative General: Alert, oriented, no apparent distress HEENT: Atraumatic, normocephalic Eyes: Anicteric, normal conjunctiva, extraocular movements grossly intact Neck: Supple Respiratory: Somewhat increased respiratory rate, diminished at the bases Cardiovascular: Regular rate and rhythm GI: Soft, nontender, nondistended Extremities: No edema Musculoskeletal: Moving all extremities Neuro: No overt focal neurological deficits Skin: No rashes appreciated, has skin tags in thickened nails Psych: Cooperative appears anxious Assessment & Plan Assessment/Plan (1) Atrial fibrillation with rapid ventricular response: (2) Cardiac arrest with pulseless electrical activity: (3) COPD exacerbation: PLAN: Plan D/c'd on the morning of presentation after admit for aceopd and pneumonia. This 72-year-old female came to ED after discharge with increased respiratory distress, tachypnea and hypoxia and then CODE BLUE blue after CTA chest, successfully ROSC and then admitted in ICU. #Acute cardiopulmonary arrest after CTA chest concern for possible anaphylactic reaction from IV contrast: Patient is being admitted in ICU. In her allergy list it is mention prednisone causes some mood changes which is known side effect of prednisone/steroid and hives with red dye. ER physician also said patient tongue was swollen and redness of the skin which improved later in the ED. Continue IV Solu-Medrol. Patient is intubated. Had successful ACLS/BLS lasted for 14 minutes with 3 doses of epinephrine. ABG 7.18/68/391 bicarb 28. Bicarb in BMP is 13. Propulsion Systems Engineer consulted -05/31: Remains intubated in ICU, echo pending, still some tongue swelling still remain intubated today and reeval tomorrow -06/01: Extubated, monitor in ICU today, remains on steroids. Likely secondary to anaphylactic reaction but cannot rule out cardiac cause, echo pending, cardiology consulted now that patient awake and noted to be neurologically intact -06/02: Pt doing better from resp perspective. Antibiotics discontinued. Echo with EF of 65% and normal diastole for age with no wall motion abnormalities noted. Lending to anaphylaxis more likely cause of cardiac arrest. Cardiology evaluated. Continue present medications and resume home medications if patient able to pass swallow eval. Discussed with email specialist, likely will be able to DC steroids tomorrow. Suspect chest pain is chest wall pain secondary to CPR, will add lidocaine patch, incentive spirometer #Acute combined respiratory failure on chronic hypoxic respiratory failure due to acute exacerbation of COPD most likely due to bilateral lower lobes pneumonia organism unspecified, prior to present admission. : Continue bronchodilators DuoNeb every 4 hourly, IV Solu-Medrol, incentive/Pep after extubation, Mucinex. Prior to intubation, chest x-ray initially reviewed shows no acute infiltrate and reported normal. Started on IV ceftriaxone. Continue doxycycline. Patient completed azithromycin course. Patient just had COVID-19 PCR reported normal, respiratory panel normal and urinary antigens normal on 05/29/2023. She had COVID-vaccine and booster. Blood cultures x2 on 05/[address] still pending. Patient follows Dr. Nuno in pulmonary clinic. -05/31: Patient remains on IV Solu-Medrol and nebs, on Rocephin and Doxy, chest x-ray prior to intubation with no acute infiltrate, ICU/pulm consulted, sputum sample obtained and pending -06/01: On steroids, extubated, continue monitoring in ICU, on empiric antibiotics but will likely be able to discontinue -06/02: Antibiotics discontinued, doing better from respiratory perspective. Remains on IV Methylpred, will likely be able to DC steroids tomorrow #Transient A-fib after ACLS with history of CAD status post PCI ostial diagonal and mid LAD 12/26/2018 : Patient has been in sinus rhythm during previous EKG and EKG done prior to CODE BLUE. It is normal sinus rhythm 92 bpm. After CODE BLUE it was A-fib 138 bpm, QTc 4 8 8 ms. QRS 84 ms. Repeat 2D echo as patient had cardiopulmonary arrest. Patient was successfully cardioverted to sinus rhythm after 300 J by ER physician. Currently in sinus rhythm. Patient was admitted for unstable angina in December 2022 and at that time cardiac cath was done for abnormal stress test. Cardiac cath showed ostial lesion of jailed diagonal branch, patent LAD stent therefore no PCI was done. Continue losartan, metoprolol, isosorbide and Plavix. -05/31: Monitoring on telemetry, may be able to forego anticoagulation given this was Viviana cardiac arrest -06/01: Echo pending, monitor telemetry, as above -06/02: Monitoring on telemetry, has not had further A-fib at this time, echo unremarkable #Chronic Diastolic CHF: 08/11/2021 echocardiogram with normal LV size, moderate concentric LVH, LV systolic function normal, EF 60%, pulmonary artery systolic pressure 40 mmHg, stage I diastolic dysfunction. Patient is on Lasix 20 mg along with potassium supplement continued. Patient not showing clinical features of acute heart failure exacerbation. -05/31: Monitor I's and O's, daily weights, continue Lasix -06/01: Weight stable thus far, continue to monitor, echo pending, remains on Lasix -06/02: On small dose of Lasix which is her home dose. BUN did increase over past 2 days's may need to consider holding Lasix pending volume and clinical status #Diabetes mellitus type II: Continue home dose of Lantus insulin and lispro insulin. Currently NPO. accu checks every 6 hourly with Humalog sliding scale coverage. Start tube feed in the morning if still not extubated. -05/31: Continue to monitor glucose and adjust as indicated -06/01: Sliding scale every 6 and insulin glargine 30 twice daily -06/02: Once swallow passed can change to ACHS per sliding scale #Hypertensive urgency - Blood pressure was high in the ED. BP still 156/97. Continue home regimen including metoprolol, losartan, isosorbide. -05/31: BP in ED 193/91, has improved to 136/57 this a.m., continue present management -06/02: Continue to adjust medications for aggressive blood pressure control #Hyperlipidemia: Continue home statin regimen. Fasting profile in December 2022 within normal limit LDL 44, HDL 55. Continue high intensity atorvastatin. #Chronic normocytic anemia: Admission hemoglobin 10.9 g. On baseline. Platelet count normal. #Anxiety and depression: Hold risperidone, citalopram, alprazolam home regimen as patient is sedated on propofol and fentanyl drip -06/01: We will resume home medications #Morbid obesity -BMI 40.6 kg/m? -Complicates treatment, prognosis, outcomes -Recommend weight loss and lifestyle changes #Other comorbidities include obstructive sleep apnea, former smoker: DVT prophylaxis: Lovenox 40 mg subcu daily. Time spent in the patient's overall evaluation,decision-making process, review of diagnostic data, adjustment of management, discussion with other providers, nursing nursing and ancillary staff involved in patient's care documentation, 40 minutes Charges/Coding Visit Charges Inpatient E&M: 51075 Subs Hosp L2
[2023-06-02] MEDS: Ipratropium/Albuterol Sulfate 3 ML AMPUL.NEB INHALATION ×5 (07:07→23:18)
[2023-06-02] MEDS: Enoxaparin 40 MG/0.4 ML Syringe SC (07:49)
[2023-06-02] MEDS: Ketorolac 15 MG/ML Vial IV ×2 (07:49→20:38)
[2023-06-02] MEDS: CHLORHEXIDINE GLUC 2% CLOTH 1 EACH TOWELETTE TOPICAL (07:49)
[2023-06-02] MEDS: Pantoprazole Sodium 40 MG Tablet PO ×2 (09:19→20:38)
[2023-06-02] MEDS: Lidocaine 5% Patch 1 PATCH TOPICAL (09:19)
[2023-06-02] MEDS: Losartan Potassium 25 MG Tablet PO (09:19)
[2023-06-02] MEDS: Isosorbide Mononitrate 60 MG Tablet PO (09:20)
[2023-06-02] MEDS: Potassium Chloride Oral Tablet 20 MEQ 40 MEQ PO (09:20)
[2023-06-02] MEDS: Furosemide 20 MG Tablet PO (09:20)
[2023-06-02] MEDS: Clopidogrel Bisulfate 75 MG Tablet PO (09:20)
[2023-06-02] MEDS: Insulin Glargine-YFGN 100 UNIT/ML Pen 30 UNIT SC ×2 (09:20→20:45)
--- NOTE | 2023-06-02 11:36 | PCM.PN.CARD ---
Subjective Subjective Sitting up in a chair. Complains of chest discomfort with deep breathing and coughing. Objective Data Vital Signs: Vital Signs Temp Pulse Resp BP Pulse Ox O2 Del Method O2 Flow Rate 98.4 F 71 24 H 151/64 H 98 Nasal Cannula 4 06/02/23 10:00 06/02/23 11:13 06/02/23 11:13 06/02/23 10:00 06/02/23 10:00 06/02/23 10:00 06/02/23 10:00 FiO2 30 06/02/23 06:00 Oxygen Flow Rate (L/min) 4 Oxygen Delivery Method Nasal Cannula Weight: 216 lb 4.375 oz Body Mass Index (BMI) 39.8 Intake & Output: Intake and Output for Last 24 Hours 05/31/23 06/01/23 06/02/23 23:59 23:59 23:59 Intake Total 1866.68 / 1887.78 173.1 / 173.1 Output Total 1875 / 1875 950 / 1150 440 / 440 Balance -8.32 / 12.78 -776.9 / -976.9 -440 / -440 Lab / Micro Data 06/02/23 04:25 06/02/23 04:25 Labs: Laboratory Results - last 24 hr 06/01/23 16:58: POC Glucose 182 H 06/01/23 20:41: POC Glucose 191 H 06/01/23 23:39: POC Glucose 201 H 06/02/23 04:25: WBC 16.8 H, RBC 3.75 L, Hgb 10.8 L, Hct 34.5 L, MCV 92.0, MCH 28.8, MCHC 31.3 L, RDW Std Deviation 42.5, RDW Coeff of Malcom 12.6, Plt Count 357, MPV 10.6, Immature Gran % (Auto) 1.000 H, Neut % (Auto) 85.6 H, Lymph % (Auto) 6.8 L, Roosevelt % (Auto) 6.4, Eos % (Auto) 0.0, Baso % (Auto) 0.2, Absolute Neuts (auto) 14.4 H, Absolute Lymphs (auto) 1.14, Nucleated RBC % 0, Sodium 139, Potassium 4.2, Chloride 105, Carbon Dioxide 31.0, Anion Gap 3 L, BUN 36 H, Creatinine 0.92, Estim Creat Clear Calc 42.32, Est GFR (MDRD) Af Amer 78, Est GFR (MDRD) Non-Af 64, BUN/Creatinine Ratio 39.3 H, Glucose 152 H, Calcium 9.0, Total Bilirubin 0.40, AST 27, ALT 50, Alkaline Phosphatase 116, Total Protein 6.6, Albumin 3.2, Globulin 3.4, Albumin/Globulin Ratio 0.9 Micro: Microbiology 05/31/23 00:20 Sputum, Induced/Lukens Gram Stain - Final 05/31/23 00:20 Sputum, Induced/Lukens Respiratory Culture - Final Presumptive C albicans Rhythm Strip Rhythm Strip: Sinus Rhythm Rate: 65 Ectopy: None Cardiology Labs/Tests 06/02/23 04:25: WBC 16.8 H, RBC 3.75 L, Hgb 10.8 L, Hct 34.5 L, MCV 92.0, MCH 28.8, MCHC 31.3 L, Plt Count 357, MPV 10.6, Immature Gran % (Auto) 1.000 H, Neut % (Auto) 85.6 H, Lymph % (Auto) 6.8 L, Roosevelt % (Auto) 6.4, Eos % (Auto) 0.0, Baso % (Auto) 0.2, Absolute Neuts (auto) 14.4 H, Nucleated RBC % 0, Sodium 139, Potassium 4.2, Chloride 105, Carbon Dioxide 31.0, Anion Gap 3 L, BUN 36 H, Creatinine 0.92, Est GFR (MDRD) Af Amer 78, Est GFR (MDRD) Non-Af 64, BUN/Creatinine Ratio 39.3 H, Glucose 152 H, Calcium 9.0, Total Bilirubin 0.40 Rhythm: EKG: ECHO: Stress Test: Cardiac Cath: PCI: CT Surgery: Holter monitor: EPS: PPM: CXR: Chest CT Scan: Radiography Diagnostic Testing: Radiology Impression Echocardiogram 05/31/23 00:25 Interpretation Summary Mild concentric left ventricular hypertrophy. The left ventricular ejection fraction is 65 %. Mildly dilated right ventricle. The left atrium is mildly enlarged. Right ventricular systolic pressure estimated to be 43 mmHg. Mild-Moderate (1-2+) posteriorly directed mitral valve insufficiency. The study was technically difficult. Ordering Physician: Nico Sweet Referring Physician: Billy Madera Performed By: Barbara Alonzo, MUMTAZCS, RVT Physical Exam Narrative Appears moderately short of breath. Heart sounds 1 and 2 are noted. Chest examination shows decreased air entry bilaterally. Alert oriented x3. No ankle edema noted. Assessment & Plan Assessment/Plan (1) Cardiopulmonary arrest with successful resuscitation: PLAN: PEA cardiac arrest reported. I could not find rhythm strips. Apparently patient was noted to have a swollen tongue and lip swelling as well. Consider cardiac arrest either secondary to anaphylactic reaction versus severe COPD exacerbation with hypoxia. Normal left ventricular systolic function. Troponin was negative. Presently chest pain with deep breathing and coughing. Likely result of CPR done. (2) Atrial fibrillation with rapid ventricular response: PLAN: Postresuscitation. Presently maintaining normal sinus rhythm. Continue clopidogrel. If recurrence of atrial fibrillation, then will consider anticoagulation. Recommend 14-day event monitoring upon discharge. (3) History of CAD (coronary artery disease): PLAN: Coronary angiography done and December of this year showed patent stent to the LAD with no other obstructive disease. Continue medical management. (4) Anaphylaxis: QUALIFIERS: Encounter type: initial encounter Qualified Code(s): T78.2XXA - Anaphylactic shock, unspecified, initial encounter PLAN: As per internal medicine. (5) History of diabetes mellitus: PLAN: As per internal medicine. (6) COPD exacerbation: PLAN: Pulmonology/internal medicine following. (7) Bilateral pneumonia: QUALIFIERS: Pneumonia type: due to unspecified organism Lung location: lower lobe of lung Qualified Code(s): J18.9 - Pneumonia, unspecified organism PLAN: As per pulmonology. PLAN: Plan No further cardiac input at present. Recommend follow-up as outpatient. Will sign off for now. Please call if needed.
[2023-06-02 12:05] LABS: Bedside Glucose 204 mg/dL (74-106)
[2023-06-02] MEDS: Acetaminophen 500 MG Tablet 1000 MG PO ×2 (13:58→20:37)
[2023-06-02] MEDS: LORazepam 2 MG/ML Syringe 0.25 MG IV (13:58)
--- NOTE | 2023-06-02 14:00 | CASEMGMT ---
SW reviewed therapy notes and noted patient is going to need rehab before returning home. SW met with patient. Introduced self and role at [facility]. SW asked patient how she was doing and patient said she is anxious. SW encouraged patient to share why she is anxious. Patient said a lot has happened to her since she has been here. SW agreed with patient that she has had a lot happen. SW listened and provided emotional support. SW then explained to patient that she is pretty weak. SW explained patient's often have to go to a facility for short term rehab before going back home. SW asked patient if this is something she is willing to consider. Patient said she isn't happy, but she will discuss it. SW told patient SW will get a list of facilities and bring it back to her. Rochelle NEUMANN
--- NOTE | 2023-06-02 14:35 | CASEMGMT ---
Discharge Planning A list of SNF providers including quality and resource use data and consistent with the patient's preferred geographic region, medical needs, and insurance network was created in [facility] Guide.? This list was provided to the SW. Deborah Mojica Discharge Planning Asst.
--- NOTE | 2023-06-02 14:51 | CASEMGMT ---
SW met with patient again to discuss fci choices. SW provided patient with a list of?fci facility providers including quality and resource use data and consistent with patient?s preferred geographic region, medical needs, and insurance network were provided from the [facility]. SW explained to patient that she would need to pick 3 facilties she would be okay with and SW will make the referrals. Patient asked SW to tell her some of the facilities on the list and SW went over the list. Patient said she will talk with her family about her choices. Rochelle NEUMANN
[2023-06-02 17:18] LABS: Bedside Glucose 289 mg/dL (74-106)
[2023-06-02] MEDS: hydrALAZINE 20 MG/ML Vial 10 MG IV (17:54)
[2023-06-02] MEDS: guaiFENesin 10 ML UDC (200MG/10ML) PO (18:28)
[2023-06-02] MEDS: ALPRAZolam 0.25 MG Tablet PO (20:36)
[2023-06-02] MEDS: RisperiDONE 1 MG Tablet PO (20:37)
[2023-06-02] MEDS: Metoprolol Tartrate 25 MG Tablet 12.5 MG PO (20:37)
[2023-06-02] MEDS: Atorvastatin Calcium 80 MG Tablet PO (20:37)
[2023-06-02] MEDS: Citalopram 40 MG TABLET PO (20:37)
[2023-06-02 21:18] LABS: Bedside Glucose 237 mg/dL (74-106)
[2023-06-03] VITALS (14 sets, daily range): BP systolic 145–161; BP diastolic 55–65; PULSE 56–70; RESP 12–44; TEMP 36.2–36.6; O2SAT 93–100; BMI 40.1
[2023-06-03 04:03] LABS: Absolute Lymphocyte Count 0.94 X10^3/uL (0.83-4.51); Absolute Neutrophil Count 12.7 X10^3/uL (2.0-7.7); Basophil# 0.04 X10^3/uL; Basophil% 0.3 % (0-1); Hematocrit 34.1 % (37-47); Hemoglobin 10.6 g/dL (12.0-15.0); Lymphocyte # 0.94 X10^3/ul (0.83-4.51); Lymphocyte % 6.4 % (19-41); Mean Corp Hgb Conc 31.1 g/dL (32-36); Mean Corpuscular Hgb 28.8 pg (27.0-32.0); Mean Corpuscular Volume 92.7 fL (81-99); Mean Platelet Vol. 10.6 fl (6.2-12.0); Monocyte# 0.82 X10^3/uL; Monocyte% 5.6 % (0-10); NRBC Flagged by Analyzer 0 % (0-5); Neutrophil # 12.69 X10^3/uL (2.7-7.7); Neutrophil % 86.4 % (47-70); Platelet Count 332 K/mm3 (150-450); RBC Distribution Width CV 12.7 % (11.6-14.6); Red Blood Count 3.68 M/mm3 (4.2-5.4); White Blood Count 14.7 K/mm3 (4.4-11.0)
[2023-06-03 04:25] LABS: AST(SGOT) 21 U/L (15-37); Alanine Aminotransfer ALT/SGPT 41 U/L (13-56); Albumin, Serum 3.1 g/dL (3.2-5.0); Alkaline Phosphatase 101 U/L (45-117); Anion Gap 4 (5-15); BUN 41 mg/dL (7-18); BUN/Creat Ratio 49.5 RATIO (10-20); Calcium,Total 8.8 mg/dL (8.5-10.1); Chloride 104 mmol/L (98-107); Creatinine, Serum 0.83 mg/dL (0.55-1.02); EST Glomerular Filtration Rate 72 mL/min (>60); Est Glom Filt Rate - Afr Amer 87 mL/min (>60); Estimated Creatinine Clearance 46.91 ml/min; Glucose 214 mg/dL (74-106); Potassium 4.4 mmol/L (3.5-5.1); Protein, Total 6.1 g/dL (6.4-8.2); Sodium Level 137 mmol/L (136-145)
[2023-06-03] MEDS: Methylprednisolone Sod Succ 40 MG/ML VIAL IV (05:28)
[2023-06-03] MEDS: Acetaminophen 500 MG Tablet 1000 MG PO ×3 (05:28→20:51)
[2023-06-03] MEDS: 0.9% Saline Lock 10 ML Syringe IV (05:29)
[2023-06-03] MEDS: Ipratropium/Albuterol Sulfate 3 ML AMPUL.NEB INHALATION ×4 (06:55→18:41)
--- NOTE | 2023-06-03 07:39 | PN.CC_ITS ---
Assessment & Plan Assessment/Plan (1) Atrial fibrillation with rapid ventricular response: (2) Cardiac arrest with pulseless electrical activity: (3) Anaphylaxis: QUALIFIERS: Encounter type: initial encounter Qualified Code(s): T78.2XXA - Anaphylactic shock, unspecified, initial encounter (4) Respiratory failure: QUALIFIERS: Chronicity: acute on chronic Respiratory failure comp lication: hypercapnia Qualified Code(s): J96.22 - Acute and chronic respiratory failure with hypercapnia PLAN: Plan RECOMMENDATIONS: 1. Discontinue steroids 2. Continue aggressive control of blood pressure 3. Consider outpatient sleep study 4. Agree with reinitiation of baseline medications 5. Potential discharge later today if proper arrangements can be made IMPRESSIONS: 1. Acute on chronic combined respiratory failure secondary to cardiopulmonary arrest secondary to anaphylaxis Patient does have significant underlying lung disease, but likely had an element of anaphylaxis leading to an arrest. It is unclear if this is secondary to a respiratory or cardiac etiology. Patient appears to have responded well to current therapy. Patient tolerated extubation well. Patient remains on BiPAP with sleep. Cultures are showing only Shira, so antibiotics were discontinued. There was a question of upper lobe infiltrates, but there has been no decompensation off of antibiotics. Patient does not appear to have any anoxic injury associated with this event. 2. Hypertensive emergency/anxiety disorder Patient with significant decompensation when systolics were greater than 190. Unclear if this is related to anxiety versus having anxiety as a result of her pulmonary edema. Patient now back on baseline p.o. regimen. May need titration of medications moving forward. Cardiology is not planning any acute interventions 3. A-fib with RVR status post cardioversion Patient noted to have A-fib with RVR on ROSC. Patient did receive a cardioversion initially, but A-fib has not recurred. This would exacerbate patient's underlying diastolic heart failure, but x-ray appears to show patient is tolerating relatively well. Patient is back on her baseline medications. Cardiology is suggesting that systemic anticoagulation would not be indicated at this time. 3. 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 Patient has had significant issues with anxiety in the past. Patient has been tolerating BiPAP. Could consider obtaining a sleep study as an outpatient for evaluation. Subjective Subjective Patient did okay overnight. Patient continues to use BiPAP with sleep and feels this is helpful. Patient has not had any hemodynamic instability. Patient has not had any stridor. Patient was able to pass a swallow evaluation. Patient does continue to report intermittent chest pain, but is not changed in intensity or character. Objective Data Objective Data No recurrence of A-fib noted on telemetry Vital Signs: Vital Signs Temp Pulse Resp BP Pulse Ox O2 Del Method O2 Flow Rate 36.2 C L 59 L 18 150/65 H 98 Bi-pap 4 06/03/23 03:40 06/03/23 06:56 06/03/23 06:56 06/03/23 03:40 06/03/23 06:56 06/03/23 03:55 06/02/23 23:18 FiO2 30 06/03/23 06:56 Oxygen Flow Rate (L/min) 4 Oxygen Delivery Method Bi-pap Weight: 99.1 kg Body Mass Index (BMI) 40.1 Intake & Output: Intake and Output for Last 24 Hours 06/01/23 06/02/23 06/03/23 23:59 23:59 23:59 Intake Total 173.1 / 173.1 760 / 760 60 / 60 Output Total 950 / 1150 540 / 540 Balance -776.9 / -976.9 220 / 220 60 / 60 Lab / Micro Data Attestation: I reviewed the patient's lab results. 06/03/23 03:52 06/03/23 03:52 Labs: Laboratory Results - last 24 hr 06/02/23 11:47: POC Glucose 204 H 06/02/23 17:00: POC Glucose 289 H 06/02/23 20:44: POC Glucose 237 H 06/03/23 03:52: WBC 14.7 H, RBC 3.68 L, Hgb 10.6 L, Hct 34.1 L, MCV 92.7, MCH 28.8, MCHC 31.1 L, RDW Std Deviation 43.0, RDW Coeff of Malcom 12.7, Plt Count 332, MPV 10.6, Immature Gran % (Auto) 1.300 H, Neut % (Auto) 86.4 H, Lymph % (Auto) 6.4 L, Greenlee % (Auto) 5.6, Eos % (Auto) 0.0, Baso % (Auto) 0.3, Absolute Neuts (auto) 12.7 H, Absolute Lymphs (auto) 0.94, Nucleated RBC % 0, Sodium 137, Potassium 4.4, Chloride 104, Carbon Dioxide 29.0, Anion Gap 4 L, BUN 41 H, Creatinine 0.83, Estim Creat Clear Calc 46.91, Est GFR (MDRD) Af Amer 87, Est GFR (MDRD) Non-Af 72, BUN/Creatinine Ratio 49.5 H, Glucose 214 H, Calcium 8.8, Total Bilirubin 0.40, AST 21, ALT 41, Alkaline Phosphatase 101, Total Protein 6.1 L, Albumin 3.1 L, Globulin 3.0, Albumin/Globulin Ratio 1.0 Micro: Microbiology 05/31/23 00:20 Sputum, Induced/Lukens Gram Stain - Final 05/31/23 00:20 Sputum, Induced/Lukens Respiratory Culture - Final Presumptive C albicans Rhythm Strip Rhythm Strip: Sinus Rhythm Rate: 60 Ectopy: None Physical Exam Const alert, oriented x3 and no apparent distress Constitutional Narrative: RASS -1 General Appearance: cooperative, comfortable, well kempt and well developed Nutritional Appearance: morbidly obese HEENT normocephalic, head/scalp atraumatic, hearing grossly normal bilaterally and moist oral mucous membranes Eyes PERRL, EOMs intact bilaterally and conjunctivae normal Eyes Narrative: No scleral icterus Neck no lymphadenopathy and supple Neck Narrative: Trachea midline, no thyroid enlargement Resp normal respiratory effort, no retractions and no use of accessory muscles Resp Narrative: Coarse breath sounds on BiPAP Auscultation: Negative for rales, rhonchi or wheezes Cardio regular rate, regular rhythm, S1 normal heart sound, S2 normal heart sound, no murmurs, no rub, no gallops and no clicks GI normal to inspection, nondistended, normoactive bowel sounds, soft to palpation and non-tender Extremity no clubbing, cyanosis or edema Extremity Narrative: Pedal pulses are 2+, onychomycosis bilateral lower extremities Skin no rashes or lesions noted, no wounds, skin turgor normal and no jaundice Neuro CN's II-XII intact bilaterally, moves all extremities and no focal motor deficits Neuro Narrative: Very minimal generalized weakness with proximal musculature being weaker than distal Speech: speech normal Psych cooperative and affect normal Charges/Coding Visit Charges Inpatient E&M: 70984 Subs Hosp L2
[2023-06-03] MEDS: Insulin Lispro 100 UNIT/ML INSULN.PEN SC ×3 (09:28→20:52)
--- NOTE | 2023-06-03 09:29 | CASEMGMT ---
SW went to patient's room. Patient was on bipap, but her daughter in law Farideh was present. Farideh had the list of SNF's and patient chose [facility], [facility], and [facility]. SUZANNE asked Deborah faye/marin production planning supervisor to please send referrals to [facility] and [facility]. Plan: SNF pending accepting facility and insurance approval. Rochelle Stevens TOUR MANAGER THIEN
[2023-06-03] MEDS: Clopidogrel Bisulfate 75 MG Tablet PO (09:30)
[2023-06-03] MEDS: Furosemide 20 MG Tablet PO (09:30)
[2023-06-03] MEDS: Pantoprazole Sodium 40 MG Tablet PO ×2 (09:30→20:51)
[2023-06-03] MEDS: Isosorbide Mononitrate 60 MG Tablet PO (09:31)
[2023-06-03] MEDS: Lidocaine 5% Patch 1 PATCH TOPICAL (09:31)
[2023-06-03] MEDS: Insulin Glargine-YFGN 100 UNIT/ML Pen 30 UNIT SC ×2 (09:31→20:52)
[2023-06-03] MEDS: Enoxaparin 40 MG/0.4 ML Syringe SC (09:32)
[2023-06-03] MEDS: Potassium Chloride Oral Tablet 20 MEQ 40 MEQ PO (09:32)
[2023-06-03] MEDS: Metoprolol Tartrate 25 MG Tablet 12.5 MG PO ×2 (09:32→20:51)
[2023-06-03] MEDS: Losartan Potassium 50 MG Tablet PO (09:33)
[2023-06-03 10:04] LABS: Bedside Glucose 193 mg/dL (74-106)
[2023-06-03] MEDS: Ketorolac 15 MG/ML Vial IV ×2 (13:50→22:48)
--- NOTE | 2023-06-03 15:03 | CASEMGMT ---
SUZANNE went to patient's room. Introduced self and role at [facility]. SUZANNE let patient know that her [facility] [address] [facility] however her second choice [facility] can accept her. SUZANNE explained to patient that she will stay here until her insurance approves her. Patient thanked SUZANNE for the update. Plan: d/c to [facility] pending insurance approval. Rochelle NEUMANN
[2023-06-03] MEDS: LORazepam 2 MG/ML Syringe 0.25 MG IV ×2 (16:40→21:42)
--- NOTE | 2023-06-03 16:44 | PCM.PN.HOSP ---
Reason for Visit Reason for Visit: Diagnoses Cardiac arrest, cause unspecified (05/30/23) Unspecified atrial fibrillation (05/30/23) Pneumonia, unspecified organism (05/30/23) Chronic obstructive pulmonary disease with (acute) exacerbation (05/30/23) Acute and chronic respiratory failure with hypercapnia (05/30/23) Anaphylactic shock, unspecified, initial encounter (05/30/23) Personal history of other endocrine, nutritional and metabolic disease (05/30/23) Personal history of other diseases of the circulatory system (05/30/23) Subjective Subjective Patient still feeling better somewhat from a respiratory standpoint, resting in bed comfortably Objective Data Objective Data Vital Signs: Vital Signs Temp Pulse Resp BP Pulse Ox O2 Del Method O2 Flow Rate 97.8 F 62 26 H 145/64 H 93 Nasal Cannula 94 06/03/23 10:08 06/03/23 15:24 06/03/23 15:24 06/03/23 10:08 06/03/23 11:56 06/03/23 11:31 06/03/23 12:10 FiO2 30 06/03/23 06:56 Oxygen Flow Rate (L/min) 94 Oxygen Delivery Method Nasal Cannula Weight: 99.1 kg Body Mass Index (BMI) 40.1 Intake & Output: Intake and Output for Last 24 Hours 06/01/23 06/02/23 06/03/23 23:59 23:59 23:59 Intake Total 173.1 / 173.1 760 / 760 60 / 60 Output Total 950 / 1150 540 / 540 600 / 600 Balance -776.9 / -976.9 220 / 220 -540 / -540 Lab / Micro Data 06/03/23 03:52 06/03/23 03:52 Labs: Laboratory Results - last 24 hr 06/02/23 17:00: POC Glucose 289 H 06/02/23 20:44: POC Glucose 237 H 06/03/23 03:52: WBC 14.7 H, RBC 3.68 L, Hgb 10.6 L, Hct 34.1 L, MCV 92.7, MCH 28.8, MCHC 31.1 L, RDW Std Deviation 43.0, RDW Coeff of Malcom 12.7, Plt Count 332, MPV 10.6, Immature Gran % (Auto) 1.300 H, Neut % (Auto) 86.4 H, Lymph % (Auto) 6.4 L, [place] % (Auto) 5.6, Eos % (Auto) 0.0, Baso % (Auto) 0.3, Absolute Neuts (auto) 12.7 H, Absolute Lymphs (auto) 0.94, Nucleated RBC % 0, Sodium 137, Potassium 4.4, Chloride 104, Carbon Dioxide 29.0, Anion Gap 4 L, BUN 41 H, Creatinine 0.83, Estim Creat Clear Calc 46.91, Est GFR (MDRD) Af Amer 87, Est GFR (MDRD) Non-Af 72, BUN/Creatinine Ratio 49.5 H, Glucose 214 H, Calcium 8.8, Total Bilirubin 0.40, AST 21, ALT 41, Alkaline Phosphatase 101, Total Protein 6.1 L, Albumin 3.1 L, Globulin 3.0, Albumin/Globulin Ratio 1.0 06/03/23 09:27: POC Glucose 193 H Micro: Microbiology 05/31/23 00:20 Sputum, Induced/Lukens Gram Stain - Final 05/31/23 00:20 Sputum, Induced/Lukens Respiratory Culture - Final Presumptive C albicans Rhythm Strip Rhythm Strip: Sinus Rhythm Rate: 60 Ectopy: None Physical Exam Narrative General: Alert, oriented, no apparent distress HEENT: Atraumatic, normocephalic Eyes: Anicteric, normal conjunctiva, extraocular movements grossly intact Neck: Supple Respiratory: Air movement somewhat better today, resting comfortably Cardiovascular: Regular rate and rhythm GI: Soft, nontender, nondistended Extremities: No edema Musculoskeletal: Moving all extremities Neuro: No overt focal neurological deficits Skin: No rashes appreciated, has skin tags in thickened nails Psych: Cooperative, appears less anxious Assessment & Plan Assessment/Plan (1) Atrial fibrillation with rapid ventricular response: (2) Cardiac arrest with pulseless electrical activity: (3) COPD exacerbation: PLAN: Plan D/c'd on the morning of presentation after admit for aceopd and pneumonia. This 72-year-old female came to ED after discharge with increased respiratory distress, tachypnea and hypoxia and then CODE BLUE blue after CTA chest, successfully ROSC and then admitted in ICU. #Acute cardiopulmonary arrest after CTA chest concern for possible anaphylactic reaction from IV contrast: Patient is being admitted in ICU. In her allergy list it is mention prednisone causes some mood changes which is known side effect of prednisone/steroid and hives with red dye. ER physician also said patient tongue was swollen and redness of the skin which improved later in the ED. Continue IV Solu-Medrol. Patient is intubated. Had successful ACLS/BLS lasted for 14 minutes with 3 doses of epinephrine. ABG 7.18/68/391 bicarb 28. Bicarb in BMP is 13. Sports Equipment Supervisor consulted -05/31: Remains intubated in ICU, echo pending, still some tongue swelling still remain intubated today and reeval tomorrow -06/01: Extubated, monitor in ICU today, remains on steroids. Likely secondary to anaphylactic reaction but cannot rule out cardiac cause, echo pending, cardiology consulted now that patient awake and noted to be neurologically intact -06/02: Pt doing better from resp perspective. Antibiotics discontinued. Echo with EF of 65% and normal diastole for age with no wall motion abnormalities noted. Lending to anaphylaxis more likely cause of cardiac arrest. Cardiology evaluated. Continue present medications and resume home medications if patient able to pass swallow eval. Discussed with folder machine operator, likely will be able to DC steroids tomorrow. Suspect chest pain is chest wall pain secondary to CPR, will add lidocaine patch, incentive spirometer -06/03: Steroids discontinued, continue supportive care, awaiting placement #Acute combined respiratory failure on chronic hypoxic respiratory failure due to acute exacerbation of COPD most likely due to bilateral lower lobes pneumonia organism unspecified, prior to present admission. : Continue bronchodilators DuoNeb every 4 hourly, IV Solu-Medrol, incentive/Pep after extubation, Mucinex. Prior to intubation, chest x-ray initially reviewed shows no acute infiltrate and reported normal. Started on IV ceftriaxone. Continue doxycycline. Patient completed azithromycin course. Patient just had COVID-19 PCR reported normal, respiratory panel normal and urinary antigens normal on 05/29/2023. She had COVID-vaccine and booster. Blood cultures x2 on 05/[address] still pending. Patient follows Dr. Nuno in pulmonary clinic. -05/31: Patient remains on IV Solu-Medrol and nebs, on Rocephin and Doxy, chest x-ray prior to intubation with no acute infiltrate, ICU/pulm consulted, sputum sample obtained and pending -06/01: On steroids, extubated, continue monitoring in ICU, on empiric antibiotics but will likely be able to discontinue -06/02: Antibiotics discontinued, doing better from respiratory perspective. Remains on IV Methylpred, will likely be able to DC steroids tomorrow -06/03: Awaiting placement #Transient A-fib after ACLS with history of CAD status post PCI ostial diagonal and mid LAD 12/26/2018 : Patient has been in sinus rhythm during previous EKG and EKG done prior to CODE BLUE. It is normal sinus rhythm 92 bpm. After CODE BLUE it was A-fib 138 bpm, QTc 4 8 8 ms. QRS 84 ms. Repeat 2D echo as patient had cardiopulmonary arrest. Patient was successfully cardioverted to sinus rhythm after 300 J by ER physician. Currently in sinus rhythm. Patient was admitted for unstable angina in December 2022 and at that time cardiac cath was done for abnormal stress test. Cardiac cath showed ostial lesion of jailed diagonal branch, patent LAD stent therefore no PCI was done. Continue losartan, metoprolol, isosorbide and Plavix. -05/31: Monitoring on telemetry, may be able to forego anticoagulation given this was Viviana cardiac arrest -06/01: Echo pending, monitor telemetry, as above -06/02: Monitoring on telemetry, has not had further A-fib at this time, echo unremarkable #Chronic Diastolic CHF: 08/11/2021 echocardiogram with normal LV size, moderate concentric LVH, LV systolic function normal, EF 60%, pulmonary artery systolic pressure 40 mmHg, stage I diastolic dysfunction. Patient is on Lasix 20 mg along with potassium supplement continued. Patient not showing clinical features of acute heart failure exacerbation. -05/31: Monitor I's and O's, daily weights, continue Lasix -06/01: Weight stable thus far, continue to monitor, echo pending, remains on Lasix -06/02: On small dose of Lasix which is her home dose. BUN did increase over past 2 days's may need to consider holding Lasix pending volume and clinical status -06/03: Weight has been stable #Diabetes mellitus type II: Continue home dose of Lantus insulin and lispro insulin. Currently NPO. accu checks every 6 hourly with Humalog sliding scale coverage. Start tube feed in the morning if still not extubated. -05/31: Continue to monitor glucose and adjust as indicated -06/01: Sliding scale every 6 and insulin glargine 30 twice daily -06/02: Once swallow passed can change to ACHS per sliding scale -06/03: Adjusted medications #Hypertensive urgency - Blood pressure was high in the ED. BP still 156/97. Continue home regimen including metoprolol, losartan, isosorbide. -05/31: BP in ED 193/91, has improved to 136/57 this a.m., continue present management -06/02: Continue to adjust medications for aggressive blood pressure control -06/03: Increased losartan, resumed home meds #Hyperlipidemia: Continue home statin regimen. Fasting profile in December 2022 within normal limit LDL 44, HDL 55. Continue high intensity atorvastatin. #Chronic normocytic anemia: Admission hemoglobin 10.9 g. On baseline. Platelet count normal. #Anxiety and depression: Hold risperidone, citalopram, alprazolam home regimen as patient is sedated on propofol and fentanyl drip -06/01: We will resume home medications #Morbid obesity -BMI 40.6 kg/m? -Complicates treatment, prognosis, outcomes -Recommend weight loss and lifestyle changes #Other comorbidities include obstructive sleep apnea, former smoker: DVT prophylaxis: Lovenox 40 mg subcu daily. Time spent in the patient's overall evaluation,decision-making process, review of diagnostic data, adjustment of management, discussion with other providers, nursing nursing and ancillary staff involved in patient's care documentation, 35 minutes Charges/Coding Visit Charges Inpatient E&M: 10991 [facility] Hosp L2
[2023-06-03 16:56] LABS: Bedside Glucose 307 mg/dL (74-106)
[2023-06-03] MEDS: ALPRAZolam 0.25 MG Tablet PO (20:50)
[2023-06-03] MEDS: Citalopram 40 MG TABLET PO (20:51)
[2023-06-03] MEDS: Atorvastatin Calcium 80 MG Tablet PO (20:52)
[2023-06-03] MEDS: RisperiDONE 1 MG Tablet PO (20:55)
[2023-06-03 21:38] LABS: Bedside Glucose 296 mg/dL (74-106)
[2023-06-04] VITALS (8 sets, daily range): BP systolic 121–142; BP diastolic 48–53; PULSE 55–76; RESP 18–24; TEMP 36.1–36.8; O2SAT 96–100; BMI 40.1
[2023-06-04 03:59] LABS: Absolute Lymphocyte Count 2.98 X10^3/uL (0.83-4.51); Absolute Neutrophil Count 11.3 X10^3/uL (2.0-7.7); Basophil# 0.04 X10^3/uL; Basophil% 0.3 % (0-1); Eosinophil# 0.16 X10^3/uL; Hemoglobin 11.8 g/dL (12.0-15.0); Lymphocyte # 2.98 X10^3/ul (0.83-4.51); Lymphocyte % 18.9 % (19-41); Mean Corp Hgb Conc 30.3 g/dL (32-36); Mean Corpuscular Hgb 28.6 pg (27.0-32.0); Mean Corpuscular Volume 94.4 fL (81-99); Mean Platelet Vol. 10.6 fl (6.2-12.0); Monocyte# 1.14 X10^3/uL; Monocyte% 7.2 % (0-10); NRBC Flagged by Analyzer 0 % (0-5); Neutrophil # 11.33 X10^3/uL (2.7-7.7); Neutrophil % 71.7 % (47-70); Platelet Count 373 K/mm3 (150-450); RBC Distribution Width CV 12.6 % (11.6-14.6); RBC Distribution Width SD 43.3 fl (35.1-43.9); Red Blood Count 4.13 M/mm3 (4.2-5.4); White Blood Count 15.8 K/mm3 (4.4-11.0)
--- NOTE | 2023-06-04 04:00 | NURSING ---
Patient has been unable to tolerate Bipap overnight. Respirations were in the 40's and patient would not slow down breathing. She was taken off of bipap and placed on her baseline 4 L NC. Patient's respirations slowed and she was able to calm down.
[2023-06-04 04:16] LABS: ALB/GLOB Ratio 0.9 RATIO (0.9-2.4); AST(SGOT) 19 U/L (15-37); Alanine Aminotransfer ALT/SGPT 40 U/L (13-56); Albumin, Serum 3.3 g/dL (3.2-5.0); Alkaline Phosphatase 111 U/L (45-117); Anion Gap 5 (5-15); BUN 39 mg/dL (7-18); BUN/Creat Ratio 39.9 RATIO (10-20); Calcium,Total 8.9 mg/dL (8.5-10.1); Chloride 104 mmol/L (98-107); Creatinine, Serum 0.98 mg/dL (0.55-1.02); EST Glomerular Filtration Rate 60 mL/min (>60); Est Glom Filt Rate - Afr Amer 72 mL/min (>60); Estimated Creatinine Clearance 39.73 ml/min; Globulin 3.5 g/dL (2.2-4.2); Glucose 90 mg/dL (74-106); Potassium 3.9 mmol/L (3.5-5.1); Protein, Total 6.8 g/dL (6.4-8.2); Sodium Level 136 mmol/L (136-145)
[2023-06-04] MEDS: Ketorolac 15 MG/ML Vial IV ×3 (04:49→16:49)
[2023-06-04] MEDS: Acetaminophen 500 MG Tablet 1000 MG PO ×2 (06:06→13:29)
--- NOTE | 2023-06-04 06:34 | PN.CC_ITS ---
Assessment & Plan Assessment/Plan (1) Atrial fibrillation with rapid ventricular response: (2) Cardiac arrest with pulseless electrical activity: (3) Anaphylaxis: QUALIFIERS: Encounter type: initial encounter Qualified Code(s): T78.2XXA - Anaphylactic shock, unspecified, initial encounter (4) Respiratory failure: QUALIFIERS: Chronicity: acute on chronic Respiratory failure comp lication: hypercapnia Qualified Code(s): J96.22 - Acute and chronic respiratory failure with hypercapnia PLAN: Plan RECOMMENDATIONS: 1. Monitor off steroids 2. Continue aggressive control of blood pressure 3. Consider outpatient sleep study 4. Agree with reinitiation of baseline medications 5. Okay to discharge from my perspective. Follow-up in office as previously planned IMPRESSIONS: 1. Acute on chronic combined respiratory failure secondary to cardi opulmonary arrest secondary to anaphylaxis Patient does have significant underlying lung disease, but likely had an element of anaphylaxis leading to an arrest. It is unclear if this is secondary to a respiratory or cardiac etiology. Patient appears to have responded well to current therapy. Patient tolerated extubation well. Patient remains on BiPAP with sleep. Cultures are showing only Shira, so antibiotics were discontinued and patient has done well. There was a question of upper lobe infiltrates, but there has been no decompensation off of antibiotics. Patient does not appear to have any anoxic injury associated with this event. Patient can likely follow-up in our office as previously planned. No 2-week CAGE CASHIER appointment necessary 2. Hypertensive emergency/anxiety disorder Patient with significant decompensation when systolics were greater than 190. Unclear if this is related to anxiety versus having anxiety as a result of her pulmonary edema. Patient now back on baseline p.o. regimen. May need titration of medications moving forward. Cardiology is not planning any acute interventions 3. A-fib with RVR status post cardioversion Patient noted to have A-fib with RVR on ROSC. Patient did receive a cardioversion initially, but A-fib has not recurred. This would exacerbate patient's underlying diastolic heart failure, but x-ray appears to show patient is tolerating relatively well. Patient is back on her baseline medications. Cardiology is suggesting that systemic anticoagulation would not be indicated at this time. 3. 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 Patient has had significant issues with anxiety in the past. Patient has been tolerating BiPAP. Could consider obtaining a sleep study as an outpatient for evaluation. Subjective Subjective Patient did well overnight. Patient continues to report some mild chest pain, but states this is slowly improving. There has been no recurrence of A-fib. Patient reportedly to go to [facility] later today. Objective Data Objective Data Vital Signs: Vital Signs Temp Pulse Resp BP Pulse Ox O2 Del Method O2 Flow Rate 36.6 C 58 L 22 H 121/53 H 100 Nasal Cannula 4 06/04/23 04:45 06/04/23 04:45 06/04/23 04:45 06/04/23 04:45 06/04/23 04:45 06/04/23 04:45 06/04/23 04:45 FiO2 4 06/04/23 04:00 Oxygen Flow Rate (L/min) 4 Oxygen Delivery Method Nasal Cannula Weight: 98.9 kg Body Mass Index (BMI) 40.1 Intake & Output: Intake and Output for Last 24 Hours 06/02/23 06/03/23 06/04/23 23:59 23:59 23:59 Intake Total 760 / 760 60 / 60 Output Total 540 / 540 900 / 900 200 / 200 Balance 220 / 220 -840 / -840 -200 / -200 Lab / Micro Data Attestation: I reviewed the patient's lab results. 06/04/23 03:50 06/04/23 03:50 Labs: Laboratory Results - last 24 hr 06/03/23 09:27: POC Glucose 193 H 06/03/23 16:35: POC Glucose 307 H 06/03/23 20:46: POC Glucose 296 H 06/04/23 03:50: WBC 15.8 H, RBC 4.13 L, Hgb 11.8 L, Hct 39.0, MCV 94.4, MCH 28.6, MCHC 30.3 L, RDW Std Deviation 43.3, RDW Coeff of Malcom 12.6, Plt Count 373, MPV 10.6, Immature Gran % (Auto) 0.900, Neut % (Auto) 71.7 H, Lymph % (Auto) 18.9 L, [place] % (Auto) 7.2, Eos % (Auto) 1.0, Baso % (Auto) 0.3, Absolute Neuts (auto) 11.3 H, Absolute Lymphs (auto) 2.98, Nucleated RBC % 0, Sodium 136, Potassium 3.9, Chloride 104, Carbon Dioxide 27.0, Anion Gap 5, BUN 39 H, Creatinine 0.98, Estim Creat Clear Calc 39.73, Est GFR (MDRD) Af Amer 72, Est GFR (MDRD) Non-Af 60, BUN/Creatinine Ratio 39.9 H, Glucose 90, Calcium 8.9, Total Bilirubin 0.40, AST 19, ALT 40, Alkaline Phosphatase 111, Total Protein 6.8, Albumin 3.3, Globulin 3.5, Albumin/Globulin Ratio 0.9 Micro: Microbiology 05/31/23 00:20 Sputum, Induced/Lukens Gram Stain - Final 05/31/23 00:20 Sputum, Induced/Lukens Respiratory Culture - Final Presumptive C albicans Rhythm Strip Rhythm Strip: Sinus Rhythm Rate: 58 Ectopy: None Physical Exam Const alert, oriented x3 and no apparent distress Constitutional Narrative: RASS 0 General Appearance: cooperative, comfortable, well kempt and well developed Nutritional Appearance: morbidly obese HEENT normocephalic, head/scalp atraumatic, hearing grossly normal bilaterally and moist oral mucous membranes Eyes PERRL, EOMs intact bilaterally and conjunctivae normal Eyes Narrative: No scleral icterus. Glasses not in place. Neck no lymphadenopathy and supple Neck Narrative: Trachea midline, no thyroid enlargement Chest inspection of chest normal Resp normal respiratory effort, no retractions and no use of accessory muscles Resp Narrative: Off BiPAP Auscultation: Negative for rales, rhonchi or wheezes Cardio regular rate, regular rhythm, S1 normal heart sound, S2 normal heart sound, no murmurs, no rub, no gallops and no clicks GI normal to inspection, nondistended, normoactive bowel sounds, soft to palpation and non-tender Extremity no clubbing, cyanosis or edema Extremity Narrative: Pedal pulses are 2+, onychomycosis bilateral lower extremities Skin no rashes or lesions noted, no wounds, skin turgor normal and no jaundice Neuro CN's II-XII intact bilaterally, moves all extremities and no focal motor deficits Neuro Narrative: Very minimal generalized weakness with proximal musculature being weaker than distal Speech: speech normal Psych cooperative and affect normal Charges/Coding Visit Charges Inpatient E&M: 55734 Subs Hosp L2
[2023-06-04] MEDS: Ipratropium/Albuterol Sulfate 3 ML AMPUL.NEB INHALATION ×3 (07:07→18:47)
[2023-06-04] MEDS: Pantoprazole Sodium 40 MG Tablet PO (10:41)
[2023-06-04] MEDS: Lidocaine 5% Patch 1 PATCH TOPICAL (10:41)
[2023-06-04] MEDS: Isosorbide Mononitrate 60 MG Tablet PO (10:41)
[2023-06-04] MEDS: Clopidogrel Bisulfate 75 MG Tablet PO (10:41)
[2023-06-04] MEDS: Potassium Chloride Oral Tablet 20 MEQ 40 MEQ PO (10:41)
[2023-06-04] MEDS: Furosemide 20 MG Tablet PO (10:41)
[2023-06-04] MEDS: Losartan Potassium 50 MG Tablet PO (10:41)
[2023-06-04] MEDS: Insulin Glargine-YFGN 100 UNIT/ML Pen 30 UNIT SC (10:42)
[2023-06-04] MEDS: Enoxaparin 40 MG/0.4 ML Syringe SC (10:42)
[2023-06-04] MEDS: Metoprolol Tartrate 25 MG Tablet 12.5 MG PO (10:42)
[2023-06-04] MEDS: Insulin Lispro 100 UNIT/ML INSULN.PEN SC ×2 (10:49→16:22)
[2023-06-04 11:04] LABS: Bedside Glucose 88 mg/dL (74-106)
[2023-06-04 11:11] LABS: Bedside Glucose 187 mg/dL (74-106)
--- NOTE | 2023-06-04 13:27 | CASEMGMT ---
Patient was approved to go to [facility]. SW notified physician. Rochelle NEUMANN
--- NOTE | 2023-06-04 15:25 | PCM.TXEXTCAR ---
Diet Diet Order/Speech Therapy: 06/02/23 09:29 Carb [Diet: Carbohydrate Controlled] Food consistency:: Regular Liquid Consistency:: Regular/Thin Is pt able to select menu?: No Diet Comments: Distant Supervision Routine Orders/Code Status Suppository Type: Dulcolax 10mg Suppository Frequency: Daily PRN O2 Liters per Minute: 4 O2 Frequency: Continuous Keep PO Greater than or Equal to (%): 92 Code Status: Full Code Therapies Physical Therapy: Eval and Treat Occupational Therapy: Eval and Treat Speech Therapy: Eval and Treat Problem/Diagnosis (1) Atrial fibrillation with rapid ventricular response: Status: Acute Code(s): I48.91 - Unspecified atrial fibrillation (2) Cardiac arrest with pulseless electrical activity: Status: Acute Code(s): I46.9 - Cardiac arrest, cause unspecified (3) Anaphylaxis: Status: Acute Code(s): T78.2XXA - Anaphylactic shock, unspecified, initial encounter (4) Respiratory failure: Status: Acute Code(s): J96.90 - Respiratory failure, unspecified, unspecified whether with hypoxia or hypercapnia Plan #Acute cardiopulmonary arrest after CTA chest concern for possible anaphylactic reaction from IV contrast #Acute combined respiratory failure on chronic hypoxic respiratory failure 2/2 anaphylaxis with chronic COPD #Transient A-fib after ACLS with history of CAD status post PCI ostial diagonal and mid LAD 12/26/2018 : Patient has been in sinus rhythm during previous #Chronic Diastolic CHF: #Diabetes mellitus type II: #Hypertensive urgency #Hyperlipidemia: #Chronic normocytic anemia #Anxiety and depression: #Morbid obesity #Other comorbidities include obstructive sleep apnea, former smoker: Patient is a 72-year-old female with history of heart failure with preserved ejection fraction, hypertension, MARK on BiPAP, type 2 diabetes mellitus, psoriasis, COPD who presented to [facility] 05/30/2023 with shortness of breath and hypoxia after being discharged earlier in the day. She is on 4 L of O2 at baseline however at home in the evening her O2 dropped to 80s and she was brought in by EMS and placed on nonrebreather at 12 L. Her admission prior to representation was for COPD exacerbation and pneumonia and she was discharged on doxycycline and prednisone. On her representation blood pressure was 226/96 with respiratory rate of 26 and heart rate of 132. She had a D-dimer of 0.72 and was taken for a CTA. During the CTA she became more short of breath and her O2 sat dropped and she lost pulse. CPR was initiated and XENA BLUE called. During CPR rhythm was PEA and she got 3 doses of epinephrine and it lasted for 14 minutes with ROSC. She was intubated during code and started on propofol drip. Had A-fib after ROSC and was converted with 300 J defibrillation into normal sinus rhythm and transferred to ICU. It was felt that she possibly had an anaphylactic reaction due to the IV contrast with the CTA. She was placed on IV steroids and did have some residual tongue and throat swelling but this improved and ultimately patient was extubated 06/01/2023. Steroids d/c'd 06/03. Cardiology consulted given CODE BLUE with somewhat unclear etiology despite suspicions but echo normal, troponin unremarkable, ultimately deemed noncardiac and no further cardiac work-up indicated. Patient improved aside from chest wall pain post CPR functionally somewhat declined and was agreeable to SNF. Ultimately discharged to skilled facility in stable condition. Allergies/Procedures Done in Hospital Allergies Iodinated Contrast Media Allergy (Severe, Verified 05/31/23 06:34) Anaphylaxis amoxicillin [Amoxicillin] Allergy (Intermediate, Verified 05/28/23 22:22) Rash hydrocodone Allergy (Intermediate, Verified 05/28/23 22:22) SWELLING gabapentin [From Neurontin] Allergy (Verified 05/28/23 22:22) Shortness of breath levofloxacin [From Levaquin] Allergy (Verified 05/28/23 22:22) Hives is allergic to the red dye in the pill form, states she is fine with the iv form. pseudoephedrine HCl [From Sudafed] Allergy (Verified 05/28/23 22:22) Shortness of breath red dye Allergy (Verified 05/28/23 22:22) Hives prednisone Adverse Reaction (Severe, Verified 05/28/23 22:22) mean mood clonazepam [From Klonopin] Adverse Reaction (Verified 05/28/23 22:22) Depression codeine Adverse Reaction (Verified 05/28/23 22:22) HEADACHE Procedures: Intubation and Transthoracic Echo Type of Care/Length of Stay Estimated LOS: Convalescent Care Less Than 30 days Type of Care Needed: Skilled Rehab Potential: Fair Prognosis: Fair Additional Orders/Day of Discharge Day of Discharge: 06/04/23 Dietary and Speech Recommendations Dietitian Recommendations/Changes: continue CHO controlled diet- texture/consistency modifications per [facility] [employer] [facility] Discharge Plan Admission Admit Date/Time: 05/30/23 23:15 Primary Reason for Your Visit: Shortness of breath Attending Provider: Enid Hernandez Primary Care Provider: Billy Madera Consulting Providers: Haroon Nuno; Korey Fraser; Inez Bello; Dimitry Olmedo; Chapito Trejo; Michelle Givens NP; Nico Sweet; Kenny Ibarra Instructions Patient Instructions: ED ADVERSE DRUG REACTION Allergic, ED Anaphylaxis Additional Instructions / Restrictions: DISCHARGE INSTRUCTIONS PLEASE READ *Please take this with you to your next doctors appointment* -Outpatient sleep study recommended -Your prednisone and antibiotics have been discontinued, these are completed -Your insulin has been adjusted to 30 units twice daily with sliding scale insulin only for meals -Your losartan was increased to 50 mg daily -Please call your primary care provider's office upon discharge to schedule a hospital follow up within 1 week. -For any concerning signs or symptoms please call 911 or proceed to the nearest emergency department Discharge Orders/Prescriptions Prescriptions: New acetaminophen 500 mg Tablet 1,000 mg PO Q8 7 Days Qty: 0 0RF insulin lispro [Humalog KwikPen Insulin] 100 unit/mL Insulin Pen 2 - 11 unit subcut ACHS Qty: 0 0RF Protocol: 4. Sliding Scale Insulin High-Med Dosing Condition: 150-199 mg/dl = 2 units Condition: 200-259 mg/dl = 4 units Condition: 260-324 mg/dl = 6 units Condition: 325-374 mg/dl = 8 units Condition: 375-409 mg/dl = 10 units Condition: 410-449 mg/dl = 11 units Condition: Greater than 449 call physician Protocol Text: - Use for Total Daily Dose of Insulin 56-80 units - Patient who are insulin resistant or septic HIGH MEDIUM DOSING ALGORITHM Continued (DME) Handicap Placard See Rx Instructions .ROUTE .MEDSUPPLY Qty: 1 0RF Rx Instructions: As directed, length of time 3 years citalopram 40 mg tablet 40 mg PO QHS Qty: 90 3RF (DME) cane Device See Rx Instructions .Route Qty: 1 0RF Rx Instructions: As directed pantoprazole 40 mg tablet,delayed release (DR/EC) 40 mg PO BID Qty: 180 2RF isosorbide mononitrate 60 mg tablet extended release 24 hr 60 mg PO DAILY Qty: 90 3RF nitroglycerin 0.4 mg tablet, sublingual 0.4 mg SUBLINGUAL Q5-15M PRN (Reason: Pain) Qty: 30 0RF atorvastatin 80 mg tablet 80 mg PO QHS clopidogrel 75 mg tablet 75 mg PO DAILY furosemide [Lasix] 20 mg tablet 20 mg PO DAILY metoprolol tartrate 25 mg tablet 12.5 mg PO BID Rx Instructions: sucralfate [Carafate] 1 gram tablet 1 g PO TID PRN (Reason: acid reflux) Qty: 20 0RF ondansetron HCl 4 mg tablet 4 mg PO Q6H PRN (Reason: nausea and vomiting) Qty: 14 0RF alprazolam 0.25 mg tablet 0.25 mg PO QHS 3 Days Qty: 3 0RF potassium chloride 20 mEq tablet extended release 20 meq PO DAILY Qty: 3 0RF bisacodyl [Dulcolax (bisacodyl)] 5 mg tablet,delayed release (DR/EC) 5 mg PO QHS PRN (Reason: constipation) 30 Days Qty: 30 3RF (DME) pen needle, diabetic 32 gauge x 5/32 needle See Rx Instructions .ROUTE .MEDSUPPLY Qty: 50 0RF Rx Instructions: 4x/day (DME) blood-glucose meter [True Metrix Glucose Meter] Misc See Rx Instructions .Route Qty: 1 0RF Rx Instructions: As directed (DME) True Metrix Glucose Test Strip Strip See Rx Instructions .Route Qty: 100 7RF Rx Instructions: tid albuterol sulfate 90 mcg/actuation HFA aerosol inhaler 2 puff INHALATION Q6H PRN (Reason: shortness of breath or wheezing) Qty: 18 3RF ipratropium-albuterol 0.5 mg-3 mg(2.5 mg base)/3 mL solution for nebulization 3 ml INHALATION Q4H PRN PRN (Reason: SOB &/OR WHEEZING) Qty: 180 6RF risperidone 1 mg tablet 1 mg PO QHS Qty: 90 1RF (DME) FreeStyle Emily 2 Sensor Kit See Rx Instructions .ROUTE .MEDSUPPLY Qty: 2 3RF Rx Instructions: As directed (DME) [facility] See Rx Instructions .ROUTE .MEDSUPPLY Qty: 1 0RF Rx Instructions: As directed Changed losartan 25 mg tablet 50 mg PO DAILY 30 Days Qty: 0 0RF insulin glargine [Basaglar KwikPen U-100 Insulin] 100 unit/mL (3 mL) insulin pen 30 unit subcut BID Qty: 42 3RF Rx Instructions: daily at bedtime Discontinued doxycycline hyclate 100 mg tablet 100 mg PO BID Qty: 10 0RF prednisone 20 mg tablet 40 mg PO DAILY Qty: 10 0RF insulin lispro [Humalog KwikPen Insulin] 100 unit/mL insulin pen 20 unit SC TID Qty: 72 3RF Rx Instructions: Hold if glucose less than 130 mg/dl Referrals / Follow Up: Billy Madera MD [Primary Care Provider] - Within 1 Week Disposition Disposition (needs filled in before D/C Order can be placed): Assisted Facility (3) Anaphylaxis Qualifiers: Encounter type: initial encounter Qualified Code(s): T78.2XXA - Anaphylactic shock, unspecified, initial encounter (4) Respiratory failure Qualifiers: Chronicity: acute on chronic Respiratory failure complication: hypercapnia Qualified Code(s): J96.22 - Acute and chronic respiratory failure with hypercapnia
--- NOTE | 2023-06-04 15:37 | PCM.DC.SUM ---
Providers Date of Admission: 05/30/23 Date of Discharge: 06/04/23 Primary Care Physician: Dr. Billy Madera MD Consultations 05/30/23 23:56 Consult: Planishing Press Operator / Pulmonary Medicine Routine Consulting Provider: Pulmonary Medicine mateusz Magnolia Reason for Consult: CODE Blue, resp arrest after CTPA.COPD exa EMERGENT Consult: No Notified: Yes Date Notified: 05/30/23 Time Notified: 23:31 Method of Notification: Text 06/01/23 09:29 Consult: Cardiology Routine Consulting Provider: Kenny Ibarra Reason for Consult: s/p cardiac arrest, likely 2/2 anaphylaxis but cannot r/o cardiac cause EMERGENT Consult: No MD Notified: Yes Date Notified: 06/01/23 Time Notified: 09:29 Method of Notification: Answering Service Reason For Visit: S/P CODE BLUE AFTER CTPA Diagnosis Discharge Diagnosis (1) Atrial fibrillation with rapid ventricular response: Status: Acute Code(s): I48.91 - Unspecified atrial fibrillation (2) Cardiac arrest with pulseless electrical activity: Status: Acute Code(s): I46.9 - Cardiac arrest, cause unspecified (3) Anaphylaxis: Status: Acute Code(s): T78.2XXA - Anaphylactic shock, unspecified, initial encounter Qualifiers: Encounter type: initial encounter Qualified Code(s): T78.2XXA - Anaphylactic shock, unspecified, initial encounter (4) Respiratory failure: Status: Acute Code(s): J96.90 - Respiratory failure, unspecified, unspecified whether with hypoxia or hypercapnia Qualifiers: Chronicity: acute on chronic Respiratory failure complication: hypercapnia Qualified Code(s): J96.22 - Acute and chronic respiratory failure with hypercapnia Plan #Acute cardiopulmonary arrest after CTA chest concern for possible anaphylactic reaction from IV contrast #Acute combined respiratory failure on chronic hypoxic respiratory failure 2/2 anaphylaxis with chronic COPD #Transient A-fib after ACLS with history of CAD status post PCI ostial diagonal and mid LAD 12/26/2018 : Patient has been in sinus rhythm during previous #Chronic Diastolic CHF: #Diabetes mellitus type II: #Hypertensive urgency #Hyperlipidemia: #Chronic normocytic anemia #Anxiety and depression: #Morbid obesity #Other comorbidities include obstructive sleep apnea, former smoker: Medications at Discharge Home Medications Handicap Placard #1 ea 12/12/20 bisacodyl 5 mg tablet,delayed release (Dulcolax (bisacodyl)) 5 mg PO QHS PRN constipation 30 days #30 tabs 11/13/21 pen needle, diabetic 32 gauge x #50 ea 02/11/22 blood sugar diagnostic (True Metrix Glucose Test Strip) #100 ea 09/11/22 blood-glucose meter (True Metrix Glucose Meter) #1 ea 09/11/22 albuterol sulfate 90 mcg/actuation aerosol inhaler 2 puff inhalation Q6H PRN shortness of breath or wheezing #18 grams 11/06/22 ipratropium 0.5 mg-albuterol 3 mg (2.5 mg base)/3 mL nebulization soln 3 ml inhalation Q4H PRN PRN SOB &/OR WHEEZING #180 mL 11/10/22 cane #1 ea 11/16/22 citalopram 40 mg tablet 40 mg PO QHS depression #90 tabs 11/16/22 risperidone 1 mg tablet 1 mg PO QHS anxiety #90 tabs 12/07/22 isosorbide mononitrate 60 mg tablet,extended release 24 hr 60 mg PO DAILY BP #90 tabs 12/26/22 nitroglycerin 0.4 mg sublingual tablet 0.4 mg sublingual Q5-15M PRN Pain #30 tabs 12/26/22 flash glucose sensor (Vigiglobeyle Emily 2 Sensor kit) #2 ea 01/06/23 atorvastatin 80 mg tablet 80 mg PO QHS cholesterol 01/26/23 clopidogrel 75 mg tablet 75 mg PO DAILY blood thinner 01/26/23 furosemide 20 mg tablet (Lasix) 20 mg PO DAILY diuretic 01/26/23 metoprolol tartrate 25 mg tablet 12.5 mg PO BID blood pressure 01/26/23 flash glucose scanning reader ([place] Emily 2 [place]) #1 ea 03/23/23 ondansetron HCl 4 mg tablet 4 mg PO Q6H PRN nausea and vomiting #14 tabs 04/16/23 sucralfate 1 gram tablet (Carafate) 1 g PO TID PRN acid reflux #20 tabs 04/16/23 pantoprazole 40 mg tablet,delayed release 40 mg PO BID stomach #180 tabs 05/20/23 potassium chloride 20 mEq tablet,extended release 20 meq PO DAILY #3 tabs 05/25/23 acetaminophen 500 mg tablet 1,000 mg (2 x 500 mg) PO Q8 7 days #0 tabs 06/04/23 alprazolam 0.25 mg tablet 0.25 mg PO QHS anxiety 3 days #3 tabs 06/04/23 insulin glargine 100 unit/mL (3 mL) subcutaneous pen (Basaglar KwikPen U-100 Insulin) 30 unit (0.3 mL) subcut BID diabetic managment #42 mL 06/04/23 insulin lispro 100 unit/mL subcutaneous pen (Humalog KwikPen (U-100) Insulin) 2 - 11 unit subcut ACHS #0 mL 06/04/23 losartan 25 mg tablet 50 mg (2 x 25 mg) PO DAILY blood pressure 30 days #0 tabs 06/04/23 Hospital Course Procedures CPR performed, Intubation and Transthoracic echo Summary of Care Provided Minutes Spent on Discharge: 40 Hospital Course: Patient is a 72-year-old female with history of heart failure with preserved ejection fraction, hypertension, MARK on BiPAP, type 2 diabetes mellitus, psoriasis, COPD who presented to [facility] 05/30/2023 with shortness of breath and hypoxia after being discharged earlier in the day. She is on 4 L of O2 at baseline however at home in the evening her O2 dropped to 80s and she was brought in by EMS and placed on nonrebreather at 12 L. Her admission prior to representation was for COPD exacerbation and pneumonia and she was discharged on doxycycline and prednisone. On her representation blood pressure was 226/96 with respiratory rate of 26 and heart rate of 132. She had a D-dimer of 0.72 and was taken for a CTA. During the CTA she became more short of breath and her O2 sat dropped and she lost pulse. CPR was initiated and CODE BLUE called. During CPR rhythm was PEA and she got 3 doses of epinephrine and it lasted for 14 minutes with ROSC. She was intubated during code and started on propofol drip. Had A-fib after ROSC and was converted with 300 J defibrillation into normal sinus rhythm and transferred to ICU. It was felt that she possibly had an anaphylactic reaction due to the IV contrast with the CTA. She was placed on IV steroids and did have some residual tongue and throat swelling but this improved and ultimately patient was extubated 06/01/2023. Steroids d/c'd 06/03. Cardiology consulted given CODE BLUE with somewhat unclear etiology despite suspicions but echo normal, troponin unremarkable, ultimately deemed noncardiac and no further cardiac work-up indicated. Patient improved aside from chest wall pain post CPR functionally somewhat declined and was agreeable to SNF. Ultimately discharged to skilled facility in stable condition. Discharge instruction is followed: -Outpatient sleep study recommended -Your prednisone and antibiotics have been discontinued, these are completed -Your insulin has been adjusted to 30 units twice daily with sliding scale insulin only for meals -Your losartan was increased to 50 mg daily -Please call your primary care provider's office upon discharge to schedule a hospital follow up within 1 week. -For any concerning signs or symptoms please call 911 or proceed to the nearest emergency department Physical Exam Narrative General: Alert, oriented, no apparent distress HEENT: Atraumatic, normocephalic Eyes: Anicteric, normal conjunctiva, extraocular movements grossly intact Neck: Supple Respiratory: Air movement better today, resting comfortably Cardiovascular: Regular rate and rhythm GI: Soft, nontender, nondistended Extremities: No edema Musculoskeletal: Moving all extremities Neuro: No overt focal neurological deficits Skin: No rashes appreciated, has skin tags in thickened nails Psych: Cooperative, less anxious Weight / BMI Weight Weight: 98.9 kg Body Mass Index (BMI) 40.1 ABG / Lab / Microbiology Data 06/04/23 03:50 06/04/23 03:50 Laboratory: Laboratory Results - last 24 hr 06/03/23 16:35: POC Glucose 307 H 06/03/23 20:46: POC Glucose 296 H 06/04/23 03:50: WBC 15.8 H, RBC 4.13 L, Hgb 11.8 L, Hct 39.0, MCV 94.4, MCH 28.6, MCHC 30.3 L, RDW Std Deviation 43.3, RDW Coeff of Malcom 12.6, Plt Count 373, MPV 10.6, Immature Gran % (Auto) 0.900, Neut % (Auto) 71.7 H, Lymph % (Auto) 18.9 L, [place] % (Auto) 7.2, Eos % (Auto) 1.0, Baso % (Auto) 0.3, Absolute Neuts (auto) 11.3 H, Absolute Lymphs (auto) 2.98, Nucleated RBC % 0, Sodium 136, Potassium 3.9, Chloride 104, Carbon Dioxide 27.0, Anion Gap 5, BUN 39 H, Creatinine 0.98, Estim Creat Clear Calc 39.73, Est GFR (MDRD) Af Amer 72, Est GFR (MDRD) Non-Af 60, BUN/Creatinine Ratio 39.9 H, Glucose 90, Calcium 8.9, Total Bilirubin 0.40, AST 19, ALT 40, Alkaline Phosphatase 111, Total Protein 6.8, Albumin 3.3, Globulin 3.5, Albumin/Globulin Ratio 0.9 06/04/23 08:38: POC Glucose 88 06/04/23 10:48: POC Glucose 187 H Microbiology: Microbiology 05/31/23 00:20 Sputum, Induced/Lukens Gram Stain - Final 05/31/23 00:20 Sputum, Induced/Lukens Respiratory Culture - Final Presumptive C albicans D/C Instructions Discharge Diet: - (Direct supervision at meals, limit distractions) Discharge Activity: - (Per physical therapy recommendations) Meaningful Use Info Meaningful Use Diagnoses (Choose all that apply): None applicable Discharge Plan Admission Admit Date/Time: 05/30/23 23:15 Primary Reason for Your Visit: Shortness of breath Attending Provider: Enid Hernandez Primary Care Provider: Billy Madera Consulting Providers: Haroon Nuno; Korey Fraser; Inez Bello; Dimitry Olmedo; Chapito Trejo; Michelle Givens NP; Nico Sweet; Kenny Ibarra Instructions Patient Instructions: ED ADVERSE DRUG REACTION Allergic, ED Anaphylaxis Additional Instructions / Restrictions: DISCHARGE INSTRUCTIONS PLEASE READ *Please take this with you to your next doctors appointment* -Outpatient sleep study recommended -Your prednisone and antibiotics have been discontinued, these are completed -Your insulin has been adjusted to 30 units twice daily with sliding scale insulin only for meals -Your losartan was increased to 50 mg daily -Please call your primary care provider's office upon discharge to schedule a hospital follow up within 1 week. -For any concerning signs or symptoms please call 911 or proceed to the nearest emergency department Discharge Orders/Prescriptions Prescriptions: New acetaminophen 500 mg Tablet 1,000 mg PO Q8 7 Days Qty: 0 0RF insulin lispro [Humalog KwikPen Insulin] 100 unit/mL Insulin Pen 2 - 11 unit subcut ACHS Qty: 0 0RF Protocol: 4. Sliding Scale Insulin High-Med Dosing Condition: 150-199 mg/dl = 2 units Condition: 200-259 mg/dl = 4 units Condition: 260-324 mg/dl = 6 units Condition: 325-374 mg/dl = 8 units Condition: 375-409 mg/dl = 10 units Condition: 410-449 mg/dl = 11 units Condition: Greater than 449 call physician Protocol Text: - Use for Total Daily Dose of Insulin 56-80 units - Patient who are insulin resistant or septic HIGH MEDIUM DOSING ALGORITHM Continued (DME) Handicap Placard See Rx Instructions .ROUTE .MEDSUPPLY Qty: 1 0RF Rx Instructions: As directed, length of time 3 years citalopram 40 mg tablet 40 mg PO QHS Qty: 90 3RF (DME) cane Device See Rx Instructions .Route Qty: 1 0RF Rx Instructions: As directed pantoprazole 40 mg tablet,delayed release (DR/EC) 40 mg PO BID Qty: 180 2RF isosorbide mononitrate 60 mg tablet extended release 24 hr 60 mg PO DAILY Qty: 90 3RF nitroglycerin 0.4 mg tablet, sublingual 0.4 mg SUBLINGUAL Q5-15M PRN (Reason: Pain) Qty: 30 0RF atorvastatin 80 mg tablet 80 mg PO QHS clopidogrel 75 mg tablet 75 mg PO DAILY furosemide [Lasix] 20 mg tablet 20 mg PO DAILY metoprolol tartrate 25 mg tablet 12.5 mg PO BID Rx Instructions: sucralfate [Carafate] 1 gram tablet 1 g PO TID PRN (Reason: acid reflux) Qty: 20 0RF ondansetron HCl 4 mg tablet 4 mg PO Q6H PRN (Reason: nausea and vomiting) Qty: 14 0RF alprazolam 0.25 mg tablet 0.25 mg PO QHS 3 Days Qty: 3 0RF potassium chloride 20 mEq tablet extended release 20 meq PO DAILY Qty: 3 0RF bisacodyl [Dulcolax (bisacodyl)] 5 mg tablet,delayed release (DR/EC) 5 mg PO QHS PRN (Reason: constipation) 30 Days Qty: 30 3RF (DME) pen needle, diabetic 32 gauge x 5/32 needle See Rx Instructions .ROUTE .MEDSUPPLY Qty: 50 0RF Rx Instructions: 4x/day (DME) blood-glucose meter [True Metrix Glucose Meter] Misc See Rx Instructions .Route Qty: 1 0RF Rx Instructions: As directed (DME) True Metrix Glucose Test Strip Strip See Rx Instructions .Route Qty: 100 7RF Rx Instructions: tid albuterol sulfate 90 mcg/actuation HFA aerosol inhaler 2 puff INHALATION Q6H PRN (Reason: shortness of breath or wheezing) Qty: 18 3RF ipratropium-albuterol 0.5 mg-3 mg(2.5 mg base)/3 mL solution for nebulization 3 ml INHALATION Q4H PRN PRN (Reason: SOB &/OR WHEEZING) Qty: 180 6RF risperidone 1 mg tablet 1 mg PO QHS Qty: 90 1RF (DME) FreeStyle Emily 2 Sensor Kit See Rx Instructions .ROUTE .MEDSUPPLY Qty: 2 3RF Rx Instructions: As directed (DME) FreeStyle Emily 2 [place] Misc See Rx Instructions .ROUTE .MEDSUPPLY Qty: 1 0RF Rx Instructions: As directed Changed losartan 25 mg tablet 50 mg PO DAILY 30 Days Qty: 0 0RF insulin glargine [Basaglar KwikPen U-100 Insulin] 100 unit/mL (3 mL) insulin pen 30 unit subcut BID Qty: 42 3RF Rx Instructions: daily at bedtime Discontinued doxycycline hyclate 100 mg tablet 100 mg PO BID Qty: 10 0RF prednisone 20 mg tablet 40 mg PO DAILY Qty: 10 0RF insulin lispro [Humalog KwikPen Insulin] 100 unit/mL insulin pen 20 unit SC TID Qty: 72 3RF Rx Instructions: Hold if glucose less than 130 mg/dl Referrals / Follow Up: Billy Madera MD [Primary Care Provider] - Within 1 Week Disposition Disposition (needs filled in before D/C Order can be placed): Custodial Facility Charges/Coding Visit Charges Inpatient E&M: 88445 Disch Hosp >30min
--- NOTE | 2023-06-04 15:38 | CASEMGMT ---
SUZANNE notified patient her insurance approved her to go to [facility] and she will go today. SUZANNE completed 7000 in [place]. Physicians will transport patient. Plan: d/c to [facility] under skilled level of care on a convalescent stay. Rochelle NEUMANN
--- NOTE | 2023-06-04 15:47 | SP.MBSS_ITS ---
Modified Barium Swallow Patient Information Study Date: 06/04/23 Study Time: 13:30 Direct Billable Minutes: 76 Total Minutes procedure & reportin Diagnosis: Respiratory failure J96.9, COPD exacerbation J44.1 Referring Physician: Enid Hernandez Reason for Referral: Objectively assess swallow function, assess risk for aspiration, and determine recommendations for least restrictive diet textures and compensatory strategies to improve safety of swallow. Medical History: Jeanna Vargas is a 72 F who presented to the [facility] ED on 05/30/23 after being discharged from [facility] earlier that morning after COPD exacerbation from pneumonia. She was discharged on doxycycline and prednisone and went home breathing on baseline 4 L of oxygen. She was brought back by EMS for difficulty breathing getting worse, and EMS put on a nonrebreather 12 L of oxygen. While in the ED, her breathing stopped and no pulse was palpable. Code blue was called and CPR initiated. ED physician also noticed swelling of tongue and redness of her skin during CODE BLUE which significantly improved later in the ER. Pt was intubated and admitted to the ICU on 05/30/23. Extubated 06/01/23 a.m. 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 was consulted and the patient remained NPO at initial evaluation due to limited trials consumed and the patient feeling she needed to be put back on BiPAP. The following day, she was upgraded to regular textures / thin liquids. She was tolerating diet well until the past 24 hours when she had 1 suspected aspiration event with nursing and 1 suspected aspiration event with CULINARY ARTS TEACHER. CULINARY ARTS TEACHER recommended MBSS to further assess swallow function and aspiration risk. Current Diet Ordered: Regular textures / Thin liquids Dentition: Upper Dentures and Lower Dentures Mental Status: WNL (Able to follow commands reliably for evaluation) Respiratory Status: Oxygenating on 4L/M nasal cannula Penetration-Aspiration Scale Penetration-Aspiration Scale: OBJECTIVE ASSESSMENT OF SWALLOW FUNCTION (QUANTITATIVE ? PER TRIAL): PENETRATION / ASPIRATION SCALE (SALAS): 1 = does not enter airway 2 = enters airway/above vocal folds/ejected 3 = enters airway/above vocal folds/not ejected 4 = enters airway/contacts vocal folds/ejected 5 = enters airway/contacts vocal folds/not ejected 6 = enters airway/below vocal folds/ejected 7 = enters airway/below vocal folds/not ejected despite effort 8 = enters airway/below vocal folds/no effort VIDEOFLOROSCOPIC SCALE SCORE (SALAS): Grade I = aspiration of material that has penetrated into the laryngeal vestibule, intact cough reflex Grade II = aspiration < 10 % of the bolus, intact cough reflex Grade III = aspiration of < 10 % of the bolus, reduced cough reflex or aspiration of > 10 % of the bolus, intact cough reflex Grade IV = aspiration of > 10 % of the bolus, reduced cough reflex Penetration-Aspiration Scale Score Thin Liquid via teaspoon: Result: 2= enter airway/above vocal folds/ejected Thin Liquid via teaspoon Trial 2: Result: 1= does not enter airway Thin Liquid via small single sip: cup: Result: 2= enter airway/above vocal folds/ejected [place] Thick Liquid via small single sip: cup: Result: 1= does not enter airway Pudding via teaspoon: Result: 1= does not enter airway Comment: Esophageal screen - complete clearance Cookie: Result: 1= does not enter airway Thin Liquid via sequential sips:straw: Result: 2= enter airway/above vocal folds/ejected Oral Phase Labial Seal: Interlabial escape, no progression to anterior lip Tongue Control During Bolus Hold: Posterior escape of greater than half of bolus Bolus Preparation/Mastication: Slow prolonged chewing/mashing with complete recollection Bolus Transport/Lingual Motion: Delayed initiation of tongue motion Oral Residue: Residue collection on oral structures (piecemeal deglutition of cookie) Pharyngeal Phase Initiation of Pharyngeal Swallow: Bolus head in pyriforms Soft Palate Elevation: No bolus between soft palate and pharyngeal wall Laryngeal Elevation: Comp. Superior move thyroid cart w/comp. apprx arytenoid cart-epig pet Anterior Hyoid Excursion: Partial anterior movement Epiglottic Movement: Complete inversion Laryngeal Vestibule Closure at Height of Swallow: Incomplete; narrow column of air/contrast in laryngeal vestibule Pharyngeal Stripping Wave: Present - complete Pharyngoesophageal Segment Opening: Complete distension and complete duration; no obstruction of flow Tongue Base Retraction: Trace column of contrast between tongue base & post. pharyngeal wall Pharyngeal Residue: Trace residue within or on pharyngeal structures Esophageal Phase Esophageal Clearance: Complete clearance Diagnosis/Impression Diagnosis: Mild oropharyngeal phase dysphagia R13.12 Impression: The oral phase is primarily marked by... -Decreased bolus control with posterior loss of >1/2 the bolus to the pharynx prior to swallow onset. -Prolonged, but adequate mastication. -Mild collection of cookie residue after the first swallow, which fully cleared with independent initiation of a second swallow. The pharyngeal phase is primarily marked by... -Delayed swallow onset. -Trace laryngeal penetration with full ejection of thin liquids via tsp, cup, and straw. No aspiration observed. Recommendations Diet: Regular Textures and Thin Liquids Compensatory Strategies: Small Bites, Small Sips, Slow Rate, Sitting upright, Remain sitting upright for 30 minutes after PO intake and Minimize/decrease dis tractions Supervision: 1:1 Close Supervision Recommend Repeat Modified Barium Swallow: No Need for Skilled Speech Therapy Services: Yes Comment: Continued dysphagia therapy 3-5X/week at current level care to include... -Oropharyngeal exercise program for improving bolus control and swallow onset (lingual resistance exercises, Fanny) -Training in use of strategies to decrease risk for aspiration. Upon discharge, will recommend ST services at next level of care. Education Completed: 1. Described result of evaluation. and 2. Pt understands evaluation & agrees with goals and treatment plan. Status Active ST Patient: Active Contact Information [facility] Speech Therapy:: Jennifer Becerra M.A. [facility]-CULINARY ARTS TEACHER Speech-Language Pathologist [facility] [address] [place] [address] [email or web address] [phone]
--- NOTE | 2023-06-04 16:17 | CASEMGMT ---
Discharge Planning Discharge orders, signed med list, and transport time sent to [facility] via [facility]. [facility] will transport patient by wheelchair at 6:30p. Nursing, , patient and her DIL updated. Deborah Mojica, Discharge Planning Asst.
[2023-06-04 16:44] LABS: Bedside Glucose 235 mg/dL (74-106)
[2023-06-04] MEDS: 0.9% Saline Lock 10 ML Syringe IV (16:50)
[2023-06-04] MEDS: LORazepam 2 MG/ML Syringe 0.25 MG IV (16:50)
== END 2023-06-04 21:05 | disposition skilled nursing facility (03) | DRG 915 ==
LOC: ED 20:38 → ICU 23:20
PROVIDERS: Admitting Provider Internal Medicine; Emergency Provider Emergency Medicine; PCP Internal Medicine; Visit Provider Internal Medicine
DX: T88.6XXA Anaphylactic reaction due to adverse effect of correct drug or medicament properly administered, initial encounter (principal); I46.9 Cardiac arrest, cause unspecified; J96.21 Acute and chronic respiratory failure with hypoxia; J18.9 Pneumonia, unspecified organism; J96.22 Acute and chronic respiratory failure with hypercapnia; J44.0 Chronic obstructive pulmonary disease with (acute) lower respiratory infection; M33.13 Other dermatomyositis without myopathy; I50.32 Chronic diastolic (congestive) heart failure; Z68.41 Body mass index [BMI] 40.0-44.9, adult; J44.1 Chronic obstructive pulmonary disease with (acute) exacerbation; I16.1 Hypertensive emergency; I11.0 Hypertensive heart disease with heart failure; E11.9 Type 2 diabetes mellitus without complications; E66.01 Morbid (severe) obesity due to excess calories; I48.91 Unspecified atrial fibrillation; Z79.4 Long term (current) use of insulin; F32.A Depression, unspecified; E78.5 Hyperlipidemia, unspecified; F41.9 Anxiety disorder, unspecified; L40.9 Psoriasis, unspecified; G47.33 Obstructive sleep apnea (adult) (pediatric); I25.10 Atherosclerotic heart disease of native coronary artery without angina pectoris; T50.8X5A Adverse effect of diagnostic agents, initial encounter; Z87.891 Personal history of nicotine dependence; Z79.02 Long term (current) use of antithrombotics/antiplatelets; Z79.899 Other long term (current) drug therapy; Z99.81 Dependence on supplemental oxygen; Y92.238 Other place in hospital as the place of occurrence of the external cause
CPT/HCPCS: 31500; 31720; 36591; 36600; 71045; 71275; 74230; 80048; 80053; 82550; 82803; 82962; 83605; 83735; 83880; 84100; 84443; 84478; 84484; 85025; 85379; 87040; 87070; 87205; 87428; 87449; 87633; 87635; 87641; 92526; 92610; 92611; 92950; 93005; 93306; 94002; 94003; 94640; 94668; 94762; 96365; 96366; 96367; 96372; 96375; 96376; 97110; 97162; 97166; 97530; 97535; 97802; 99221; 99252; 99285; J7030; J7050; J7120; Q9957; A4216; C8929; G0378; G0463; J0696

== ENCOUNTER → 2023-06-29 | Outpatient (REF) | payer MEDICARE, SELFPAY ==
[2021-11-03 12:08] VITALS: BMI 34.9
[2023-06-29 10:11] LABS: Hematocrit 31.5 % (37-47); Hemoglobin 9.7 g/dL (12.0-15.0); Mean Corp Hgb Conc 30.8 g/dL (32-36); Mean Corpuscular Volume 94.3 fL (81-99); Mean Platelet Vol. 11.2 fl (6.2-12.0); Platelet Count 286 K/mm3 (150-450); RBC Distribution Width SD 44.5 fl (35.1-43.9); Red Blood Count 3.34 M/mm3 (4.2-5.4); White Blood Count 8.1 K/mm3 (4.4-11.0)
[2023-06-29 10:25] LABS: AST(SGOT) 10 U/L (15-37); Alanine Aminotransfer ALT/SGPT 17 U/L (13-56); Albumin, Serum 3.1 g/dL (3.2-5.0); Alkaline Phosphatase 139 U/L (45-117); Anion Gap 5 (5-15); BUN 13 mg/dL (7-18); BUN/Creat Ratio 18.6 RATIO (10-20); Calcium,Total 8.8 mg/dL (8.5-10.1); Chloride 99 mmol/L (98-107); EST Glomerular Filtration Rate 88 mL/min (>60); Est Glom Filt Rate - Afr Amer 106 mL/min (>60); Glucose 129 mg/dL (74-106); Potassium 3.7 mmol/L (3.5-5.1); Protein, Total 6.1 g/dL (6.4-8.2); Sodium Level 137 mmol/L (136-145)
== END ==
LOC: OLS.SW 05:00
PROVIDERS: PCP Internal Medicine; Visit Provider Family Medicine
DX: I25.10 Atherosclerotic heart disease of native coronary artery without angina pectoris (principal); I10 Essential (primary) hypertension
CPT/HCPCS: 36415; 80053; 85027

== ENCOUNTER → 2023-07-14 | Outpatient (REF) | payer MEDICARE, SELFPAY ==
[2021-11-03 12:08] VITALS: BMI 34.9
[2023-07-14 09:36] LABS: Anion Gap 6 (5-15); BUN 8 mg/dL (7-18); BUN/Creat Ratio 11.2 RATIO (10-20); Calcium,Total 9.1 mg/dL (8.5-10.1); Chloride 97 mmol/L (98-107); Creatinine, Serum 0.72 mg/dL (0.55-1.02); EST Glomerular Filtration Rate 85 mL/min (>60); Est Glom Filt Rate - Afr Amer 103 mL/min (>60); Glucose 134 mg/dL (74-106); Potassium 3.7 mmol/L (3.5-5.1); Sodium Level 134 mmol/L (136-145)
== END ==
LOC: OLS.SW 04:00
PROVIDERS: PCP Internal Medicine; Referring Provider Family Medicine; Visit Provider Family Medicine
DX: J44.9 Chronic obstructive pulmonary disease, unspecified (principal)
CPT/HCPCS: 36415; 80048

== ENCOUNTER → 2023-07-20 | Outpatient (REF) | payer MEDICARE, SELFPAY ==
[2021-11-03 12:08] VITALS: BMI 34.9
[2023-07-20 09:04] LABS: Hematocrit 32.9 % (37-47); Hemoglobin 10.3 g/dL (12.0-15.0); Mean Corp Hgb Conc 31.3 g/dL (32-36); Mean Corpuscular Hgb 28.8 pg (27.0-32.0); Mean Corpuscular Volume 91.9 fL (81-99); Mean Platelet Vol. 11.3 fl (6.2-12.0); Platelet Count 242 K/mm3 (150-450); RBC Distribution Width CV 12.8 % (11.6-14.6); RBC Distribution Width SD 43.2 fl (35.1-43.9); Red Blood Count 3.58 M/mm3 (4.2-5.4); White Blood Count 6.7 K/mm3 (4.4-11.0)
--- OUTSIDE RECORDS SUMMARY | 2023-07-20 09:05 | XMS RPT_ITS | CCD ---
Author Name Unknown Address [address] [place] [address] Organization [facility] Care Team Providers Care Button Decorating Machine Operator Name Role Phone Jerry MELVIN, Bolivar Rosado Unavailable [phone] Yuliet Aguilar Unavailable Unavailable Mike Richard Primary Care Provider [phone] Unavailable Primary Care Provider Billy Nowak Primary Care Provider Allergies Allergy Classification Reported Allergen(s) Allergy Type Date of Onset Reaction(s) Facility (6 sources) amoxicillin drug allergy 12-20-19 09 Hives [facility] Work Phone: (3 sources) cephalexin drug allergy 06-01-20 16 GI upset [facility] Work Phone: (3 sources) Cephalosporins (Antibiotic) drug allergy 06-01-20 16 trouble breathing and lip numbing [facility] Work Phone: (3 sources) ciprofloxacin drug allergy 06-01-20 16 edema [facility] Work Phone: (3 sources) codeine drug allergy 06-01-20 16 [facility] Work Phone: (3 sources) Corticosteroids drug allergy 06-01-20 16 anxious [facility] Work Phone: (3 sources) gabapentin drug allergy 06-01-20 16 dyspnea [facility] Work Phone: (3 sources) levoFLOXacin drug allergy 06-01-20 16 hives [facility] Work Phone: (3 sources) meperidine drug allergy 06-01-20 16 [facility] Work Phone: (3 sources) nortriptyline drug allergy 06-01-20 16 headache [facility] Work Phone: [phone] (3 sources) sertraline drug allergy 06-01-20 16 felt poorly [facility] Work Phone: [phone] (3 sources) venlafaxine drug allergy 06-01-20 16 anxiety increase [facility] Work Phone: (1 source) Codeine Drug Allergy 04-14-20 16 Other: See Comments [facility] (1 source) Contrast media Drug Allergy 04-14-20 16 [facility] (1 source) levoFLOXacin Drug Allergy 04-14-20 16 [facility] (1 source) Omeprazole Drug Allergy 04-14-20 16 Shortness of Breath [facility] (2 sources) Pseudoephedrine Drug Allergy 04-14-20 16 Rash [facility] (1 source) raNITIdine Drug Allergy 04-14-20 16 [facility] (2 sources) Cephalexin Drug Allergy 06-01-20 16 Other (See Comments) [place] sources[place] Iodides Propensity to adverse reactions to drug 07-14-20 19 Hives [place], [place] (1 source) Pseudoephedrine Drug Allergy 12-20-19 09 [facility] Work Phone: (1 source) Morphine And Related Propensity to adverse reactions to drug 12-20-19 [facility] Work Phone: Medications Current Medications Medication Drug Class(es) Dates Sig (Normalized) Sig (Original) albuterol 0.833 mg/ml / ipratropium bromide 0.167 mg/ml inhalant solution (4 sources) Anticholinergic, beta2-Adrenergic Agonist Start: 09-05-2020 ipratropium-albuter ol (DUONEB) 0.5-2.5 (3) MG/3ML SOLN nebulizer solution inhale contents of 1 vial ( 3 milliliters ) in nebulizer every 4 ... (REFER TO PRESCRIPTION NOTES). 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 Problems Active Problems Problem Classification Problem Date Documented Da te Episodic/Chronic Diabetes mellitus without complication (3 sources) Type 2 diabetes mellitus; Translations: [Type 2 diabetes mellitus without complications] Onset: 10-08-2016 10-08-2016 Chronic Esophageal disorders (3 sources) De La Vega's esophagus; 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] Onset: 10-28-2016 10-28-2016 Chronic Other non-traumatic joint disorders (1 source) Pain in elbow; Translations: [Right elbow pain] Episodic Other nutritional; endocrine; and metabolic disorders (3 sources) Overweight; Translations: [Overweight] Onset: 10-19-2016 10-19-2016 Chronic Substance-related disorders (3 sources) Tobacco dependence syndrome; Translations: [Nicotine dependence, unspecified, uncomplicated] Onset: 07-31-2016 07-31-2016 Chronic Systemic lupus erythematosus and connective tissue disorders (3 sources) Dermatomyositis; Translations: [Dermatopolymyositi s, unspecified with other organ involvement] Onset: 07-31-2016 07-31-2016 Chronic Past or Other Problems Problem Classification Problem Date Documented Da te Episodic/Chronic Chronic obstructive pulmonary disease and bronchiectasis (3 sources) Bronchitis; Translations: [Bronchitis, not specified as acute or chronic] Onset: 08-19-2016 08-19-2016 Episodic Other gastrointestinal disorders (3 sources) Abdominal bloating; Translations: [Abdominal distension (gaseous)] Onset: 10-08-2016 10-08-2016 Episodic Other lower respiratory disease (3 sources) Dyspnea; Translations: [Shortness of breath] Onset: 07-31-2016 07-31-2016 Episodic Results Test Name Value Interpretation Reference Range Facil ity Vital Signs Date Time Vital Sign Value Performing Clinician Facility 03-18-2017 13:100400 BMI (Body Mass Index) 35.95 kg/m2 Yuliet Aguilar [facility] Work Phone: 03-18-2017 13:100400 Body Temperature 98.6 [degF] Yuliet Aguilar [facility] Work Phone: 03-18-2017 13:10-0400 BP Diastolic 85 mm[Hg] Yuliet [facility] Work Phone: 03-18-2017 13:10-0400 BP Systolic 141 mm[Hg] [facility] Work Phone: 03-18-2017 13:10-0400 Height 157.48 cm [facility] Work Phone: 03-18-2017 13:10-0400 Pulse (Heart Rate) 73 /min [facility] Work Phone: 03-18-2017 13:10-0400 Respiratory Rate 18 /min [facility] Work Phone: 03-18-2017 13:10-0400 Weight 89.18 kg [facility] Work Phone: 10-19-2016 11:30-0400 Body Temperature 98.01 [degF] [facility] Work Phone: 10-19-2016 11:30-0400 BSA (Body Surface Area) 1.9 m2 [facility] Work Phone: 10-19-2016 11:30-0400 Height 157.48 cm [facility] Work Phone: 10-19-2016 11:30-0400 Weight 88.99 kg [facility] Work Phone: Encounters Encounter Date Encounter Type Care Provider Facility Start: 10-17-2020 End: 10-17-2020 Subsequent hospital visit by physician Korey Barry Work Phone: [facility] Procedures Date Procedure Procedure Detail Performing Clinician Start: 10-17-2020 Radex elbow complete minimum 3 views Korey Barry Work Phone: Start: 08-15-2020 Radex elbow complete minimum 3 views Korey Barry Work Phone: Start: 03-18-2017 End: 03-18-2017 Dietary management education, guidance, and counseling Yuliet Jeff Start: 10-28-2016 End: 03-26-2017 Upper GI endoscopy, biopsy Bolivar Edwards MD Work Phone: Start: 10-19-2016 End: 03-26-2017 Upper GI endoscopy, biopsy Bolivar Edwards MD Work Phone: Start: 10-08-2016 End: 03-26-2017 Follow Up after Imaging/labs Bolivar Edwards MD Work Phone: Start: 07-31-2016 End: 09-18-2016 Ct thorax w/o dye Haroon Nuno Work Phone: Start: 07-31-2016 End: 09-18-2016 Pulmonary stress test/simple Haroon Nuno Work Phone: Start: 07-31-2016 End: 09-18-2016 Tte w/doppler, complete Haroon Nuno Work Phone: Start: 07-13-2007 CONVERTED SURGICAL PATHOLOGY Kanchan Cabrera Work Phone: Plan of Treatment Date Care Activity Detail Author Start: 06-29-2030 DTaP/Tdap/Td vaccine (3 - Td) DTaP/Tdap/Td vaccine (3 - Td) [place], [place] Start: 09-26-2020 End: 09-26-2020 Nurse Only [facility] [place] Start: 08-18-2020 Annual Wellness Visit (AWV) Annual Wellness Visit (AWV) [facility] Work Phone: Start: 04-09-2020 Influenza vaccination INFLUENZA (#1) [facility] Start: 03-26-2017 End: 03-26-2017 Appointment Appointment [facility] Work Phone: Start: 03-18-2017 End: 03-22-2017 Upper GI endoscopy, biopsy Upper gastrointestinal endoscopy; with biopsy [facility] [employer] Work Phone: Start: 10-28-2016 End: 03-26-2017 Upper GI endoscopy, biopsy Upper gastrointestinal endoscopy; with biopsy [facility] [employer] Work Phone: Start: 10-19-2016 End: 03-26-2017 Upper GI endoscopy, biopsy Upper gastrointestinal endoscopy; with biopsy [facility] Work Phone: Start: 10-09-2016 End: 10-09-2016 Endocrinology Referral [facility] Work Phone: Start: 10-08-2016 End: 03-26-2017 Follow Up after Imaging/labs Follow Up after Imaging/labs [facility] [employer] Work Phone: Start: 10-08-2016 End: 10-09-2016 Gastric emptying study NM Gastric Emptying Study [facility] [employer] Work Phone: Start: 10-08-2016 End: 10-08-2016 HbA1c Hemoglobin A1C [facility] Work Phone: Start: 10-08-2016 End: 10-09-2016 X-ray exam, upper gi tract Upper GI & Small Bowel [facility] Work Phone: Start: 09-24-2016 End: 09-24-2016 CSM CSM [facility] [employer] Work Phone: Start: 09-24-2016 End: 09-24-2016 Follow Up Appt 1 month Follow Up Appt 1 month [facility] Work Phone: Start: 09-24-2016 End: 09-24-2016 Pulmonary Function Test - complete Pulmonary Function Test - complete [facility] [employer] Work Phone: Start: 07-31-2016 End: 09-18-2016 Ct thorax w/o dye CT Chest without contrast [facility] Work Phone: Start: 07-31-2016 End: 07-31-2016 Follow Up Appt 1 month Follow Up Appt 1 month [facility] Work Phone: Start: 07-31-2016 End: 07-31-2016 Pulmonary Function Test - complete Pulmonary Function Test - complete [facility] Work Phone: Start: 07-31-2016 End: 09-18-2016 Pulmonary stress test/simple Pulmonary stress testing; simple (eg, 6-minute walk) [facility] Work Phone: Start: 07-31-2016 End: 09-18-2016 Tte w/doppler, complete Echo Complete with Color Flow [facility] Work Phone: Start: 2016 ADVANCE DIRECTIVE DISCUSSION ADVANCE DIRECTIVE DISCUSSION [facility] Start: 2016 BONE DENSITY BONE DENSITY [facility] Start: 2016 Pneumococcal 65+ years Vaccine (2 of 2 - PPSV23) Pneumococcal 65+ years Vaccine (2 of 2 - PPSV23) [place], [place] Start: 2016 PNEUMOVAX AGE 65 AND OVER WITH 5YR LOOKBACK (#1) PNEUMOVAX AGE 65 AND OVER WITH 5YR LOOKBACK (#1) [facility] Start: 2006 Screening for osteoporosis DEXA (modify frequency per FRAX score) [place], [place] Start: 2001 Screening for malignant neoplasm of breast Breast cancer screen [place], [place] Start: 2001 Screening for malignant neoplasm of colon Colon cancer screen colonoscopy [place], [place] Start: 2001 Shingles Vaccine (1 of 2) Shingles Vaccine (1 of 2) [place] Start: 2001 SHINGRIX VACCINE (1 of 2) SHINGRIX VACCINE (1 of 2) [facility] Start: 2001 Tuberculosis screening COLORECTAL CANCER SCREENING,SEE MODIFIER [facility] Start: 1996 DIABETES SCREEN DIABETES SCREEN [facility] Start: 1996 LIPID SCREEN LIPID SCREEN [facility] Start: 1991 Diabetes screen Diabetes screen [place], [place] Start: 1991 Lipid panel Lipid screen [place] Start: 1991 Mammography MAMMOGRAM [facility] Start: 1970 Urine microalbumin profile DTAP,TDAP,TD (1 - Tdap) [facility] Start: 1969 HEPATITIS C SCREENING HEPATITIS C SCREENING [facility] Start: 1967 COVID-19 Vaccine (1 of 2) COVID-19 Vaccine (1 of 2) [facility] Work Phone: Start: 1951 Creatinine measurement Creatinine monitoring [place], [place] Start: 1951 Hepatitis C screening Hepatitis C screen [place], [place] Start: 1951 Potassium monitoring Potassium monitoring [place], [place] Payers Date Payer Category Payer Medicare BCBS MEDICARE AN THEM MEDIBLUE ESSENTIAL/PLUS [id number] 2020-Present [address] [address] [place] [address] [id number] 2004 Unknown MMO [employer] SU[employer] MED PLUS BH [id number] 2004-2010 PPO [id number] Social History Date Type Detail Facility Tobacco smoking stat [facility] Unknown if ever smoked [facility] Sex Assigned At Not on file [facility] Start: 08-15-2020 End: 10-17-2020 Tobacco smoking status NHIS Never smoker [place], [place] Exposure to SARS-CoV -2 (event) Not sure [place] Start: 10-17-2020 Tobacco use and exposure Never used [facility] Work Phone: Medical Equipment Procedure Code Equipment Code Equipment Original Text Equipment Identifier Dates use 1 TEST STRIP to TEST BLOOD SUGAR 4 TIMES A DAY [id number] Start: 07-24-2020 use 1 LANCET to TEST BLOOD SUGAR four times a day [id number] Start: 07-24-2020 use 1 PEN NEEDLE to inject MEDICATION subcutaneously four times a day [id number] Start: 10-07-2020 use as directed [id number] Start: 07-25-2020 Advance Directives No Advanced Directives Records FoundDocuments on File Type Date Recorded Patient Innovation Analyst Expl anation Advance Directive(s) Advance Directive(s) 04/28/2016 5:40 PM Advance Directive(s) 05/04/2016 7:48 AM Assessments Diagnosis Right elbow pain Pain in joint, upper arm Summary Purpose Family History No Family History Records Found Additional Source Comments Source Comments (unrecognize d section and content) In the event this informatio n is protected by the Federal Confidentiality of Alcohol and Drug Abuse Patient Records regulations: The Federal rules restrict any use of the information to criminally investigate or prosecute any alcohol or drug abuse patient.[facility] INFORMATION SOURCE (unrecogn ized section and content) FOR RECORDS PERTAINING TO PATIENTS WHO ARE OR HAVE BEEN ENROLLED IN A CHEMICAL DEPENDENCY/SUBSTANCEABUSE PROGRAM, SOME INFORMATION MAY BE OMITTED. This clinical summary was aggregated from multiple sources. Caution should be exercised in using it in the provision of clinical care. This summary normalizes information from multiple sources, and as a consequence, information in this document may materially change the coding, format and clinical context of patient data. In addition, data may be omitted in some cases. CLINICAL DECISIONS SHOULD BE BASED ON THE PRIMARY CLINICAL RECORDS. [facility]. provides no warranty or guarantee of the accuracy or completeness of information in this document.
[2023-07-20 09:56] LABS: ALB/GLOB Ratio 1.1 RATIO (0.9-2.4); AST(SGOT) 11 U/L (15-37); Alanine Aminotransfer ALT/SGPT 18 U/L (13-56); Albumin, Serum 3.2 g/dL (3.2-5.0); Alkaline Phosphatase 131 U/L (45-117); Anion Gap 7 (5-15); BUN 10 mg/dL (7-18); BUN/Creat Ratio 12.8 RATIO (10-20); Calcium,Total 8.5 mg/dL (8.5-10.1); Chloride 97 mmol/L (98-107); Creatinine, Serum 0.78 mg/dL (0.55-1.02); EST Glomerular Filtration Rate 77 mL/min (>60); Est Glom Filt Rate - Afr Amer 93 mL/min (>60); Glucose 69 mg/dL (74-106); Potassium 3.8 mmol/L (3.5-5.1); Protein, Total 6.2 g/dL (6.4-8.2); Sodium Level 135 mmol/L (136-145)
== END ==
LOC: OLS.SW 05:50
PROVIDERS: PCP Internal Medicine; Visit Provider Family Medicine
DX: I10 Essential (primary) hypertension (principal)
CPT/HCPCS: 36415; 80053; 85027

== ENCOUNTER → 2023-08-10 | Outpatient (REF) | payer MEDICARE, MEDICAID, SELFPAY ==
[2021-11-03 12:08] VITALS: BMI 34.9
[2023-08-10 08:27] LABS: Hematocrit 34.8 % (37-47); Hemoglobin 10.8 g/dL (12.0-15.0); Mean Corpuscular Hgb 28.3 pg (27.0-32.0); Mean Corpuscular Volume 91.1 fL (81-99); Mean Platelet Vol. 10.9 fl (6.2-12.0); Platelet Count 325 K/mm3 (150-450); Red Blood Count 3.82 M/mm3 (4.2-5.4); White Blood Count 9.8 K/mm3 (4.4-11.0)
[2023-08-10 08:47] LABS: ALB/GLOB Ratio 1.1 RATIO (0.9-2.4); AST(SGOT) 8 U/L (15-37); Alanine Aminotransfer ALT/SGPT 15 U/L (13-56); Albumin, Serum 3.5 g/dL (3.2-5.0); Alkaline Phosphatase 124 U/L (45-117); Anion Gap 4 (5-15); BUN 15 mg/dL (7-18); BUN/Creat Ratio 20.1 RATIO (10-20); Calcium,Total 9.7 mg/dL (8.5-10.1); Chloride 99 mmol/L (98-107); Creatinine, Serum 0.74 mg/dL (0.55-1.02); EST Glomerular Filtration Rate 81 mL/min (>60); Est Glom Filt Rate - Afr Amer 98 mL/min (>60); Globulin 3.2 g/dL (2.2-4.2); Glucose 70 mg/dL (74-106); Potassium 3.9 mmol/L (3.5-5.1); Protein, Total 6.7 g/dL (6.4-8.2); Sodium Level 135 mmol/L (136-145)
== END ==
LOC: OLS.SW 05:00
PROVIDERS: PCP Internal Medicine; Visit Provider Family Medicine
DX: I10 Essential (primary) hypertension (principal); I25.10 Atherosclerotic heart disease of native coronary artery without angina pectoris
CPT/HCPCS: 36415; 80053; 85027

== ENCOUNTER 2023-08-22 06:25 | Inpatient (IN) | payer MEDICARE, MEDICAID, SELFPAY ==
[2021-11-03 12:08] VITALS: BMI 34.9
[2023-08-22] VITALS (10 sets, daily range): BP systolic 136–162; BP diastolic 54–115; PULSE 64–108; RESP 14–36; TEMP 36.3–37; O2SAT 93–99; BMI 41.1; BMI 39.6
--- NOTE | 2023-08-22 07:01 | RAD_ITS ---
EXAM: XR CHEST, 2 VIEWS CLINICAL INDICATION: sob TECHNIQUE: Frontal and lateral views of the chest. COMPARISON: 05/30/2023. FINDINGS: LUNGS AND PLEURAL SPACES: Dense consolidation left lower lung may be due to pneumonia. No pneumothorax. No effusion. HEART: Unremarkable. Cardiac silhouette not enlarged. MEDIASTINUM: Central airways and mediastinal contour are unremarkable. BONES/JOINTS: Unremarkable. No acute fracture. SOFT TISSUES: Unremarkable. RAD/Chest PA and Lateral IMPRESSION: Dense consolidation left lower lung may be due to pneumonia. Electronically Signed: Raz Joe MD at 7:29 EST ,
[2023-08-22 07:08] LABS: Absolute Lymphocyte Count 2.84 X10^3/uL (0.83-4.51); Absolute Neutrophil Count 9.6 X10^3/uL (2.0-7.7); Basophil% 0.7 % (0-1); Eosinophils% 1.5 % (0-5); Hemoglobin 11.2 g/dL (12.0-15.0); Lymphocyte # 2.84 X10^3/ul (0.83-4.51); Lymphocyte % 20.9 % (19-41); Mean Corpuscular Hgb 28.1 pg (27.0-32.0); Mean Corpuscular Volume 87.9 fL (81-99); Mean Platelet Vol. 10.4 fl (6.2-12.0); Monocyte# 0.77 X10^3/uL; Monocyte% 5.7 % (0-10); NRBC Flagged by Analyzer 0 % (0-5); Neutrophil # 9.61 X10^3/uL (2.7-7.7); Neutrophil % 70.7 % (47-70); Platelet Count 324 K/mm3 (150-450); RBC Distribution Width CV 12.6 % (11.6-14.6); RBC Distribution Width SD 40.6 fl (35.1-43.9); Red Blood Count 3.98 M/mm3 (4.2-5.4); White Blood Count 13.6 K/mm3 (4.4-11.0)
--- NOTE | 2023-08-22 07:26 | EKG12_ITS ---
Test Reason : CP/SOB Blood Pressure : / mmHG Vent. Rate : 078 BPM Atrial Rate : 078 BPM P-R Int : 156 ms QRS Dur : 082 ms QT Int : 378 ms P-R-T Axes : 051 013 070 degrees QTc Int : 430 ms Poor data quality, interpretation may be adversely affected Sinus rhythm with occasional Premature ventricular complexes Otherwise normal ECG Confirmed by BANG MELVIN, ROSALIA ([id number]), editor school photograph JAVIER COLBY ([id number]) on 08/23/2023 9:36:14 AM Referred By: BEATRICE Confirmed By:ROSALIA CUENCA MD
[2023-08-22] MEDS: MethylPREDNISolone 125 MG/2 ML Vial 60 MG IV (07:34)
[2023-08-22] MEDS: Ipratropium/Albuterol Sulfate 3 ML AMPUL.NEB INHALATION ×3 (07:34→19:32)
--- NOTE | 2023-08-22 07:35 | ED.VIS.DYS ---
HPI History of Present Illness Chief Complaint: Shortness of Breath Informant: patient Narrative Narrative: Patient is 73-year-old female with history of of chronic hypoxic respiratory failure (on 4 L of oxygen at baseline), COPD, type 2 diabetes mellitus, coronary artery disease, dermatomyositis, GERD, flash pulmonary edema, CHF presenting with increased SOB. Patient states she is on prednisone for the past 8 days. She states she was also started on azithromycin. She is not sure what doses of that she is received. She has been feeling more short of breath. Requested come to the ER. Is currently in long-term at her nursing facility. Notes that she did develop some chest pain in the left today. Reports that she had some swelling of her legs. States she normally can ambulate with a walker. She been more short of breath with ambulation in the past few days. Does not feel that she can catch her breath. Does report some nausea and constipation (last bowel movement 4 days ago) but denies any abdominal pain. Received a DuoNeb treatment at 3 AM with some improvement but her symptoms returned. [facility] Medical History Anemia Anxiety and depression Asthma with COPD Atherosclerotic heart disease of [place] coronary artery without angina pectoris Back pain Bilateral pneumonia Chest pain Chronic back pain Chronic respiratory failure COPD (chronic obstructive pulmonary disease) Diastolic CHF Endotracheally intubated Former smoker Hepatitis HLD (hyperlipidemia) Hypertension Morbid obesity Obesity MARK treated with BiPAP Psoriasis Smoking greater than 40 pack years Thyroid nodule Type 2 diabetes mellitus Home Medications Handicap Joshuaard #1 ea 12/12/20 [Rx Last Taken Unknown] bisacodyl 5 mg tablet,delayed release (Dulcolax (bisacodyl)) 5 mg PO QHS PRN constipation 30 days #30 tabs 11/13/21 [Rx Last Taken Unknown] pen needle, diabetic 32 gauge x #50 ea 02/11/22 [Rx Last Taken Unknown] blood sugar diagnostic (True Metrix Glucose Test Strip) #100 ea 09/11/22 [Rx Last Taken Unknown] blood-glucose meter (True Metrix Glucose Meter) #1 ea 09/11/22 [Rx Last Taken Unknown] albuterol sulfate 90 mcg/actuation aerosol inhaler 2 puff inhalation Q6H PRN shortness of breath or wheezing #18 grams 11/06/22 [Rx Last Taken Unknown] ipratropium 0.5 mg-albuterol 3 mg (2.5 mg base)/3 mL nebulization soln 3 ml inhalation Q4H PRN PRN SOB &/OR WHEEZING #180 mL 11/10/22 [Rx Last Taken Unknown] cane #1 ea 11/16/22 [Rx Last Taken Unknown] citalopram 40 mg tablet 40 mg PO QHS depression #90 tabs 11/16/22 [Rx Last Taken Unknown] isosorbide mononitrate 60 mg tablet,extended release 24 hr 60 mg PO DAILY BP #90 tabs 12/26/22 [Rx Last Taken Unknown] nitroglycerin 0.4 mg sublingual tablet 0.4 mg sublingual Q5-15M PRN Pain #30 tabs 12/26/22 [Rx Last Taken Unknown] flash glucose sensor ([employer] Emily 2 Sensor kit) #2 ea 01/06/23 [Rx Last Taken Unknown] atorvastatin 80 mg tablet 80 mg PO QHS cholesterol 01/26/23 [History Last Taken Unknown] clopidogrel 75 mg tablet 75 mg PO DAILY blood thinner 01/26/23 [History Last Taken Unknown] furosemide 20 mg tablet (Lasix) 20 mg PO BID diuretic 01/26/23 [History Last Taken Unknown] metoprolol tartrate 25 mg tablet 12.5 mg PO BID blood pressure 01/26/23 [History Last Taken Unknown] flash glucose scanning reader (Navidog Emily 2 [facility]) #1 ea 03/23/23 [Rx Last Taken Unknown] ondansetron HCl 4 mg tablet 4 mg PO Q6H PRN nausea and vomiting #14 tabs 04/16/23 [Rx Last Taken Unknown] sucralfate 1 gram tablet (Carafate) 1 g PO TID PRN acid reflux #20 tabs 04/16/23 [Rx Last Taken Unknown] pantoprazole 40 mg tablet,delayed release 40 mg PO BID stomach #180 tabs 05/20/23 [Rx Last Taken Unknown] acetaminophen 500 mg tablet 1,000 mg (2 x 500 mg) PO Q8 7 days #0 tabs 06/04/23 [Rx Last Taken Unknown] insulin lispro 100 unit/mL subcutaneous pen (Humalog KwikPen (U-100) Insulin) 2 - 11 unit subcut ACHS #0 mL 06/04/23 [Rx Last Taken Unknown] losartan 25 mg tablet 50 mg (2 x 25 mg) PO DAILY blood pressure 30 days #0 tabs 06/04/23 [Rx Last Taken Unknown] aluminum-magnesium hydroxide 225 mg-200 mg/5 mL oral suspension 30 ml PO Q4H PRN UPSET STOMACH 07/23/23 [History Last Taken Unknown] buspirone 5 mg tablet 7.5 mg PO TID 07/23/23 [History Last Taken Unknown] dextrose 40 % oral gel (Glucose Gel) 10 g PO Q15M PRN hypoglycemia 07/23/23 [History Last Taken Unknown] guaifenesin 200 mg/5 mL oral liquid 400 mg PO Q4H PRN cough 07/23/23 [History Last Taken Unknown] therapeutic multivitamin 1 tab PO DAILY 07/23/23 [History Last Taken Unknown] budesonide 1 mg/2 mL suspension for nebulization 0.5 mg inhalation BID 08/13/23 [History Last Taken Unknown] insulin glargine 100 unit/mL (3 mL) subcutaneous pen ([employer] KwikPen U-100 Insulin) 32 unit subcut QHS diabetic managment 08/13/23 [History Last Taken Unknown] potassium chloride 20 mEq tablet,extended release 20 meq PO BID 08/22/23 [History Last Taken Unknown] prednisone 10 mg tablet 10 mg PO DAILY 08/22/23 [History Last Taken Unknown] trazodone 50 mg tablet 25 mg PO QHS 08/22/23 [History Last Taken Unknown] Allergy/AdvReac Type Severity Reaction Status Date / Time Iodinated Contrast Media Allergy Severe Anaphylaxis Verified 08/22/23 06:34 amoxicillin [Amoxicillin] Allergy Intermediate Rash Verified 08/22/23 06:34 hydrocodone Allergy Intermediate SWELLING Verified 08/22/23 06:34 gabapentin [From Neurontin] Allergy Shortness Verified 08/22/23 06:34 of breath levofloxacin [From Levaquin] Allergy Hives Verified 08/22/23 06:34 pseudoephedrine HCl Allergy Shortness Verified 08/22/23 06:34 [From Sudafed] of breath red dye Allergy Hives Verified 08/22/23 06:34 prednisone AdvReac Severe mean mood Verified 08/22/23 06:34 clonazepam [From Klonopin] AdvReac Depression Verified 08/22/23 06:34 codeine AdvReac HEADACHE Verified 08/22/23 06:34 Family History Brother Heart disease Mother Colon cancer Heart disease Surgical History History of cholecystectomy History of left heart catheterization (LHC) (~09/23/20) Stented coronary artery (12/28/18) Social History Smoking Status: Former smoker pack-years: 40 how long ago did patient quit smokin year ago alcohol intake: never substance use type: does not use caffeine: Yes Type: carbonated beverages and tea what type of physical activity do you participate in: none ROS ROS ED Constitutional Constitutional ED: Denies chills or fever(s) Eyes Eyes: Denies change in vision ENT ENT ED: Reports ear pain and other Details: nasal congestion Cardiovascular Cardiovascular: Reports chest pain; Denies palpitations Respiratory/Chest Respiratory/Chest: Reports cough and dyspnea Gastrointestinal Gastrointestinal: Reports constipation and nausea; Denies abdominal pain or vomiting Musculoskeletal Musculoskeletal: Denies arthralgias or myalgias Integumentary Denies rash Neurologic Neurologic: Reports weakness; Denies headache(s) Hematologic/Lymphatic Hematologic/Lymphatic: Denies easy bleeding or easy bruising EXAM Physical Exam Const Vital Signs: 08/22/23 06:26 08/22/23 06:36 08/22/23 07:26 Temperature 97.8 F Temperature Source Temporal Pulse Rate 85 Respiratory Rate 28 H Respiratory Effort Normal Respiratory Pattern Blood Pressure 162/110 H Blood Pressure Mean 127 Pulse Ox 96 Oxygen Delivery Method Nasal Cannula Nasal Cannula Oxygen Flow Rate (L/min) 4 4 08/22/23 07:43 08/22/23 09:55 Temperature Temperature Source Pulse Rate 81 108 H Respiratory Rate 20 H 36 H Respiratory Effort Respiratory Pattern Tachypnea Blood Pressure Blood Pressure Mean Pulse Ox 93 Oxygen Delivery Method Nasal Cannula Oxygen Flow Rate (L/min) 4 Positive well nourished and well developed General Appearance ED: well developed; Negative for pallor HEENT Reports TM's clear and dry mucous membranes Tympanic Membrane ED: Yes TM's clear Mouth ED: Yes dry mucous membranes Mouth: dry mucous membranes Eyes PERRL and EOMs intact bilaterally Neck supple and no JVD Resp Resp Narrative: Tachypneic, coarse breath sounds throughout with diminished air movement. And expiratory wheezing present most pronounced in the upper lobes Cardio regular rate, regular rhythm and no murmurs GI non-tender and non-distended Extremity Extremity Narrative: 2+ non-pitting pedal edema General Extremety ED: Yes edema General Extremity: edema Neuro oriented x3 Sensorium / Orientation: alert Motor Exam: general weakness Psych mental status grossly normal Skin no wounds General Skin Exam: Negative for pallor MDM MDM MDM Narrative Medical decision making narrative: Evaluate for increased shortness of breath. Says she has had about 2 weeks of cold symptoms that are worsening. She is already on azithromycin and prednisone taper yet her symptoms are worsening. Differential includes fluid overload although clinically patient visual bit more dry), pneumonia, persistent COPD exacerbation. Will obtain labs and chest x-ray as well as EKG Administered a DuoNeb as well as 60 mg IV Solu-Medrol in the emergency room. Improvement with DuoNeb but then starts to complain of more shortness of breath about an hour and a half later. Workup shows a mild leukocytosis 13.6. Unclear if this is reactive, associate with acute infection or secondary to recent steroids. Chest x-ray viewed by myself as well as radiology does show left lower lobe infiltrate. Started on Rocephin and azithromycin in the emergency room. She has a mild hyponatremia the sodium 128 and is given IV fluids. Low suspicion for fluid overload at this time and her BNP is largely normal (102). Patient's quite symptomatic with any type of ambulation/movement or exertion and becomes very tachypneic. Given her aerosol demands, symptoms and the fact that she is worsening despite being on steroids at her nursing facility will admit her for this pneumonia, COPD exacerbation likely secondary to positive RSV and further respiratory monitoring. Patient agreeable this plan of care. Case is discussed with my physician, Dr. Lee. Lab Data Attestation: I reviewed the patient's lab results. Labs: Laboratory Results - last 24 hr 08/22/23 08/22/23 06:40 07:40 WBC 13.6 H RBC 3.98 L Hgb 11.2 L Hct 35.0 L MCV 87.9 MCH 28.1 MCHC 32.0 RDW Std Deviation 40.6 RDW Coeff of [place] 12.6 Plt Count 324 MPV 10.4 Immature Gran % (Auto) 0.500 Neut % (Auto) 70.7 H Lymph % (Auto) 20.9 [place] % (Auto) 5.7 Eos % (Auto) 1.5 Baso % (Auto) 0.7 Absolute Neuts (auto) 9.6 H Absolute Lymphs (auto) 2.84 Nucleated RBC % 0 Sodium 128 L Potassium 3.9 Chloride 91 L Carbon Dioxide 30.0 Anion Gap 7 BUN 9 Creatinine 0.71 Estim Creat Clear Calc 71.15 Est GFR (MDRD) Af Amer 104 Est GFR (MDRD) Non-Af 86 BUN/Creatinine Ratio 12.6 Glucose 205 H Lactic Acid 1.7 Calcium 8.9 Troponin I High Sens 10 B-Natriuretic Peptide 102.0 H Radiography Chest X-Ray - ED: 2 View, Read by ED Physician, Read by Radiologist and Left Infiltrate Diagnostic Testing: Clinical Impression(s) from Imaging Studies Chest X-Ray 08/22/23 07:01 IMPRESSION: Dense consolidation left lower lung may be due to pneumonia. Electronically Signed: Raz Joe MD at 7:29 EST , Rhythm Strip Rhythm Strip: Sinus Rhythm Rate: 78 Ectopy: PVC(s) EKG Initial EKG: Attestation: I personally reviewed and interpreted this EKG as follows: Interpretation: Sinus Rhythm Comments: Normal sinus rhythm rate of 78 bpm Normal axis Normal intervals Normal ST segments PVC present Compared to prior EKG on 05/30/2023, patient is a new PVC but no other acute changes Management Discussion w/another healthcare provider: Hospitalist Discharge Plan Triage Chief Complaint: Shortness of Breath ED Provider: Sera Aguilar Dx/Rx/DC Orders Clinical Impression: Acute exacerbation of chronic obstructive pulmonary disease (COPD), Hyponatremia, Left lower lobe pneumonia, RSV infection, Acute dyspnea, Chronic hypoxemic respiratory failure Prescriptions: No Action (DME) Handicap Placard See Rx Instructions .ROUTE .MEDSUPPLY Qty: 1 0RF Rx Instructions: As directed, length of time 3 years citalopram 40 mg tablet 40 mg PO QHS Qty: 90 3RF (DME) cane Device See Rx Instructions .Route Qty: 1 0RF Rx Instructions: As directed pantoprazole 40 mg tablet,delayed release (DR/EC) 40 mg PO BID Qty: 180 2RF therapeutic multivitamin Tablet 1 tab PO DAILY guaifenesin 200 mg/5 mL liquid 400 mg PO Q4H PRN (Reason: cough) dextrose [Glucose Gel] 40 % gel 10 g PO Q15M PRN (Reason: hypoglycemia) Rx Instructions: until symptoms of low blood sugar are controlled buspirone 5 mg tablet 7.5 mg PO TID aluminum-magnesium hydroxide 225-200 mg/5 mL suspension 30 ml PO Q4H PRN (Reason: UPSET STOMACH) budesonide 1 mg/2 mL suspension for nebulization 0.5 mg inhalation BID insulin glargine [Basaglar KwikPen U-100 Insulin] 100 unit/mL (3 mL) insulin pen 32 unit subcut QHS Rx Instructions: daily at bedtime isosorbide mononitrate 60 mg tablet extended release 24 hr 60 mg PO DAILY Qty: 90 3RF nitroglycerin 0.4 mg tablet, sublingual 0.4 mg SUBLINGUAL Q5-15M PRN (Reason: Pain) Qty: 30 0RF atorvastatin 80 mg tablet 80 mg PO QHS clopidogrel 75 mg tablet 75 mg PO DAILY furosemide [Lasix] 20 mg tablet 20 mg PO BID metoprolol tartrate 25 mg tablet 12.5 mg PO BID Rx Instructions: sucralfate [Carafate] 1 gram tablet 1 g PO TID PRN (Reason: acid reflux) Qty: 20 0RF ondansetron HCl 4 mg tablet 4 mg PO Q6H PRN (Reason: nausea and vomiting) Qty: 14 0RF acetaminophen 500 mg Tablet 1,000 mg PO Q8 7 Days Qty: 0 0RF insulin lispro [Humalog KwikPen Insulin] 100 unit/mL Insulin Pen 2 - 11 unit subcut ACHS Qty: 0 0RF Protocol: 4. Sliding Scale Insulin High-Med Dosing Condition: 150-199 mg/dl = 2 units Condition: 200-259 mg/dl = 4 units Condition: 260-324 mg/dl = 6 units Condition: 325-374 mg/dl = 8 units Condition: 375-409 mg/dl = 10 units Condition: 410-449 mg/dl = 11 units Condition: Greater than 449 call physician Protocol Text: - Use for Total Daily Dose of Insulin 56-80 units - Patient who are insulin resistant or septic HIGH MEDIUM DOSING ALGORITHM losartan 25 mg tablet 50 mg PO DAILY 30 Days Qty: 0 0RF prednisone 10 mg tablet 10 mg PO DAILY trazodone 50 mg tablet 25 mg PO QHS potassium chloride 20 mEq tablet extended release 20 meq PO BID bisacodyl [Dulcolax (bisacodyl)] 5 mg tablet,delayed release (DR/EC) 5 mg PO QHS PRN (Reason: constipation) 30 Days Qty: 30 3RF (DME) pen needle, diabetic 32 gauge x /32 needle See Rx Instructions .ROUTE .MEDSUPPLY Qty: 50 0RF Rx Instructions: 4x/day (DME) blood-glucose meter [True Metrix Glucose Meter] Misc See Rx Instructions .Route Qty: 1 0RF Rx Instructions: As directed (DME) True Metrix Glucose Test Strip Strip See Rx Instructions .Route Qty: 100 7RF Rx Instructions: tid albuterol sulfate 90 mcg/actuation HFA aerosol inhaler 2 puff INHALATION Q6H PRN (Reason: shortness of breath or wheezing) Qty: 18 3RF ipratropium-albuterol 0.5 mg-3 mg(2.5 mg base)/3 mL solution for nebulization 3 ml INHALATION Q4H PRN PRN (Reason: SOB &/OR WHEEZING) Qty: 180 6RF (DME) FreeStyle Emily 2 Sensor Kit See Rx Instructions .ROUTE .MEDSUPPLY Qty: 2 3RF Rx Instructions: As directed (DME) FreeStyle Emily 2 [facility] Misc See Rx Instructions .ROUTE .MEDSUPPLY Qty: 1 0RF Rx Instructions: As directed Primary Care Provider: Billy Madera Referrals: Billy Madera MD [Primary Care Provider] - Disposition Disposition: Acute Care Hospital [facility]
--- OUTSIDE RECORDS SUMMARY | 2023-08-22 08:09 | XMS RPT_ITS | CCD ---
Author Name Unknown Address [address] [place] [address] Organization [facility] Care Team Providers Care Instrument Repair Technician Name Role Phone Jerry MELVIN, Bolivar Rosado Unavailable Yuliet Aguilar Unavailable Unavailable Mike Richard Primary Care Provider Unavailable Primary Care Provider Billy Nowak Primary Care Provider Allergies Allergy Classification Reported Allergen(s) Allergy Type Date of Onset Reaction(s) Facility (6 sources) amoxicillin drug allergy 12-20-19 09 Hives [facility] Work Phone: (3 sources) cephalexin drug allergy 06-01-20 16 GI upset [facility] Work Phone: (3 sources) Cephalosporins (Antibiotic) drug allergy 06-01-20 16 trouble breathing and lip numbing [facility] Work Phone: (3 sources) ciprofloxacin drug allergy 06-01-20 16 edema [facility] Work Phone: (3 sources) codeine drug allergy 06-01-20 16 [facility] Work Phone: (3 sources) Corticosteroids drug allergy 06-01-20 16 anxious [facility] Work Phone: (3 sources) gabapentin drug allergy 06-01-20 16 dyspnea [facility] Work Phone: (3 sources) levoFLOXacin drug allergy 06-01-20 16 hives [facility] Work Phone: (3 sources) meperidine drug allergy 06-01-20 16 [facility] Work Phone: (3 sources) nortriptyline drug allergy 06-01-20 16 headache [facility] Work Phone: [phone] (3 sources) sertraline drug allergy 06-01-20 16 felt poorly [facility] Work Phone: [phone] (3 sources) venlafaxine drug allergy 06-01-20 16 anxiety increase [facility] Work Phone: (1 source) Codeine Drug Allergy 04-14-20 16 Other: See Comments [facility] (1 source) Contrast media Drug Allergy 04-14-20 [facility] (1 source) levoFLOXacin Drug Allergy 04-14-20 16 [facility] (1 source) Omeprazole Drug Allergy 04-14-20 16 Shortness of Breath [facility] (2 sources) Pseudoephedrine Drug Allergy 04-14-20 16 Rash [facility] (1 source) raNITIdine Drug Allergy 04-14-20 16 [facility] (2 sources) Cephalexin Drug Allergy 06-01-20 16 Other (See Comments) [place] ([place] sources) Iodides Propensity to adverse reactions to drug 07-14-20 19 Hives [place], [place] (1 source) Pseudoephedrine Drug Allergy 12-20-19 09 [facility] Work Phone: (1 source) Morphine And Related Propensity to adverse reactions to drug 12-20-19 [facility] Work Phone: Medications Current Medications Medication Drug [...] times a day as needed HYDROCODONE-ACETAMI LUZMAHEN [id number] July 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 Work Phone: 03-18-2017 13:10-0400 Height 157.48 cm [facility] Work Phone: 03-18-2017 13:10-0400 Pulse (Heart Rate) 73 /min [facility] Work Phone: 03-18-2017 13:10-0400 Respiratory Rate 18 /min [facility] Work Phone: 03-18-2017 13:10-0400 Weight 89.18 kg [facility] Work Phone: 10-19-2016 11:30-0400 Body Temperature 98.01 [degF] [facility] [employer] Work Phone: 10-19-2016 11:30-0400 BSA (Body Surface Area) 1.9 m2 [facility] Work Phone: 10-19-2016 11:30-0400 Height 157.48 cm [facility] Work Phone: 10-19-2016 11:30-0400 Weight 88.99 kg [facility] Work Phone: Encounters Encounter Date Encounter Type Care Provider Facility Start: 10-17-2020 End: 10-17-2020 Subsequent hospital visit by physician Korey Barry Work Phone: [facility] Rad Procedures Date Procedure Procedure Detail [...] - Td) DTaP/Tdap/Td vaccine (3 - Td) [place] Start: 09-26-2020 End: 09-26-[address] [facility] [place] Start: 08-18-2020 Annual Wellness Visit (AWV) Annual Wellness Visit (AWV) [facility] Work Phone: Start: 04-09-2020 Influenza vaccination INFLUENZA (#1) [facility] Start: 03-26-2017 End: 03-26-2017 Appointment Appointment [facility] Work Phone: Start: 03-18-2017 End: 03-22-2017 Upper GI endoscopy, biopsy Upper gastrointestinal endoscopy; with biopsy [facility] Work Phone: Start: 10-28-2016 End: 03-26-2017 Upper GI endoscopy, biopsy Upper gastrointestinal endoscopy; with biopsy [facility] Work Phone: Start: 10-19-2016 End: 03-26-2017 Upper GI endoscopy, biopsy Upper gastrointestinal endoscopy; with biopsy [facility] Work Phone: Start: 10-09-2016 End: 10-09-2016 Endocrinology Referral [facility] Work Phone: Start: 10-08-2016 End: 03-26-2017 Follow Up after Imaging/labs Follow Up after Imaging/labs [facility] Work Phone: Start: 10-08-2016 End: 10-09-2016 Gastric emptying study NM Gastric Emptying Study [facility] [employer] Work Phone: Start: 10-08-2016 End: 10-08-2016 HbA1c Hemoglobin A1C [facility] Work Phone: Start: 10-08-2016 End: 10-09-2016 X-ray exam, upper gi tract Upper GI & Small Bowel [facility] Work Phone: Start: 09-24-2016 End: 09-24-2016 [facility] Work Phone: Start: 09-24-2016 End: 09-24-2016 Follow Up Appt 1 month Follow Up Appt 1 month [facility] Work Phone: Start: 09-24-2016 End: 09-24-2016 Pulmonary Function Test - complete Pulmonary Function Test - complete [facility] Work Phone: Start: 07-31-2016 End: 09-18-2016 Ct thorax w/o dye CT Chest without contrast [facility] Work Phone: Start: 07-31-2016 End: 07-31-2016 Follow Up Appt 1 month Follow Up Appt 1 month [facility] Work Phone: Start: 07-31-2016 End: 07-31-2016 Pulmonary Function Test - complete Pulmonary Function Test - complete [facility] Work Phone: Start: 07-31-2016 End: 09-18-2016 Pulmonary stress test/simple Pulmonary stress testing; simple (eg, 6-minute walk) [facility] Work Phone: Start: 07-31-2016 End: 09-18-2016 Tte w/doppler, complete Echo Complete with Color Flow [facility] Work Phone: Start: 2016 ADVANCE DIRECTIVE DISCUSSION ADVANCE DIRECTIVE DISCUSSION [facility] Start: 2016 BONE DENSITY BONE DENSITY [facility] Start: 2016 Pneumococcal 65+ years Vaccine (2 of 2 - PPSV23) Pneumococcal 65+ years Vaccine (2 of 2 - PPSV23) [place] Start: 2016 PNEUMOVAX AGE 65 AND OVER WITH 5YR LOOKBACK (#1) PNEUMOVAX AGE 65 AND OVER WITH 5YR LOOKBACK (#1) [facility] Start: 2006 Screening for osteoporosis DEXA (modify frequency per FRAX score) [place], [place] Start: 2001 Screening for malignant neoplasm of breast Breast cancer screen [place], [place] Start: 2001 Screening for malignant neoplasm of colon Colon cancer screen colonoscopy [place] Start: 2001 Shingles Vaccine (1 of 2) Shingles Vaccine (1 of 2) [place] Start: 2001 SHINGRIX VACCINE (1 of 2) SHINGRIX VACCINE (1 of 2) [facility] Start: 2001 Tuberculosis screening COLORECTAL CANCER SCREENING,SEE MODIFIER [facility] Start: 1996 DIABETES SCREEN DIABETES SCREEN [facility] Start: 1996 LIPID SCREEN LIPID SCREEN [facility] Start: 1991 Diabetes screen Diabetes screen [place], [place] Start: 1991 Lipid panel Lipid [place] Start: 1991 Mammography MAMMOGRAM [facility] Start: 1970 Urine microalbumin profile DTAP,TDAP,TD (1 - Tdap) [facility] Start: 1969 HEPATITIS C SCREENING HEPATITIS C SCREENING [facility] Start: 1967 COVID-19 Vaccine (1 of 2) COVID-19 Vaccine (1 of 2) [facility] Work Phone: Start: 1951 Creatinine measurement Creatinine monitoring [place], [place] Start: 1951 Hepatitis C screening Hepatitis C screen [place], [place] Start: 1951 Potassium monitoring Potassium monitoring [place], [place] Payers Date Payer Category Payer Medicare BCBS MEDICARE AN THEM MEDIBLUE ESSENTIAL/PLUS [id number] 2020-Present [address] [address] [place] [address] [id number] 2004 Unknown MMO ZZZMMO SUPER MED PLUS BH [id number] 2004-2010 PPO [id number] Social History Date Type Detail Facility Tobacco smoking stat [facility] Unknown if ever smoked [facility] Sex Assigned At Not on file [facility] Start: 08-15-2020 End: 10-17-2020 Tobacco smoking status NHIS Never smoker [place], [place] Exposure to SARS-CoV -2 (event) Not sure [place] Start: 10-17-2020 Tobacco use and exposure Never used [employer] Work Phone: Medical Equipment Procedure Code Equipment Code Equipment Original Text Equipment Identifier Dates use 1 TEST STRIP to TEST BLOOD SUGAR 4 TIMES A DAY [id number] Start: 07-24-2020 use 1 LANCET to TEST BLOOD SUGAR four times a day [id number] Start: 07-24-2020 use 1 PEN NEEDLE to inject MEDICATION subcutaneously four times a day [id number] Start: 10-07-2020 use as directed [id number] Start: 07-25-2020 Advance Directives No Advanced Directives Records FoundDocuments on File Type Date Recorded Patient Patient Biller Expl anation Advance Directive(s) Advance Directive(s) 04/28/2016 [...] or prosecute any alcohol or drug abuse patient.[facility] INFORMATION SOURCE (unrecogn ized section and content) [...] BE BASED ON THE PRIMARY CLINICAL RECORDS. [facility]. provides no warranty or guarantee of the accuracy or completeness of information in this document.
[2023-08-22 08:16] LABS: Lactic Acid 1.7 mmol/L (0.4-1.9)
[2023-08-22 08:56] LABS: Anion Gap 7 (5-15); BUN 9 mg/dL (7-18); BUN/Creat Ratio 12.6 RATIO (10-20); Calcium,Total 8.9 mg/dL (8.5-10.1); Chloride 91 mmol/L (98-107); Creatinine, Serum 0.71 mg/dL (0.55-1.02); EST Glomerular Filtration Rate 86 mL/min (>60); Est Glom Filt Rate - Afr Amer 104 mL/min (>60); Estimated Creatinine Clearance 71.15 ml/min; Glucose 205 mg/dL (74-106); Potassium 3.9 mmol/L (3.5-5.1); Sodium Level 128 mmol/L (136-145)
[2023-08-22 09:17] LABS: Troponin-I HS 10 pg/mL (3.0-54.0)
[2023-08-22] MEDS: 0.9% Normal Saline (1000mL) 1,000 ML 999 ML IV (09:41)
[2023-08-22] MEDS: Ceftriaxone 1 GM/50 ML BAG IV (10:04)
[2023-08-22] MEDS: Albuterol 2.5 MG/3 ML VIAL.NEB. INHALATION ×2 (10:23)
--- OUTSIDE RECORDS SUMMARY | 2023-08-22 10:35 | XMS RPT_ITS | CCD ---
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 Name Role Phone Jerry MELVIN, Bolivar Rosado Unavailable Yuliet Aguilar Unavailable Unavailable Mike Richard Primary Care Provider [phone] Unavailable Primary Care Provider Billy Nowak Primary Care Provider Allergies Allergy Classification Reported Allergen(s) Allergy Type Date of Onset Reaction(s) Facility (6 sources) amoxicillin drug allergy 12-20-19 09 Hives [facility] Work Phone: (3 sources) cephalexin drug allergy 06-01-20 16 GI upset [facility] Work Phone: (3 sources) Cephalosporins (Antibiotic) drug allergy 06-01-20 16 trouble breathing and lip numbing [facility] Work Phone: (3 sources) ciprofloxacin drug allergy 06-01-20 16 edema [facility] Work Phone: (3 sources) codeine drug allergy 06-01-20 16 [facility] Work Phone: (3 sources) Corticosteroids drug allergy 06-01-20 16 anxious [facility] Work Phone: (3 sources) gabapentin drug allergy 06-01-20 16 dyspnea [facility] Work Phone: (3 sources) levoFLOXacin drug allergy 06-01-20 16 hives [facility] Work Phone: (3 sources) meperidine drug allergy 06-01-20 16 [facility] Work Phone: (3 sources) nortriptyline drug allergy 06-01-20 16 headache [facility] Work Phone: [phone] (3 sources) sertraline drug allergy 06-01-20 16 felt poorly [facility] Work Phone: [phone] (3 sources) venlafaxine drug allergy 06-01-20 16 anxiety increase [facility] Work Phone: (1 source) Codeine Drug Allergy 04-14-20 16 Other: See Comments [facility] (1 source) Contrast media Drug Allergy 04-14-20 [facility] (1 source) levoFLOXacin Drug Allergy 04-14-20 16 [facility] (1 source) Omeprazole Drug Allergy 04-14-20 16 Shortness of Breath [facility] (2 sources) Pseudoephedrine Drug Allergy 04-14-20 16 Rash [facility] (1 source) raNITIdine Drug Allergy 04-14-20 16 [facility] (2 sources) Cephalexin Drug Allergy 06-01-20 16 Other (See Comments) [place] [facility] ([place] sources) Iodides Propensity to adverse reactions to drug 07-14-20 19 Hives [place], [place] (1 source) Pseudoephedrine Drug Allergy 12-20-19 09 [facility] Work Phone: (1 source) Morphine And Related Propensity to adverse reactions to drug 12-20-19 [facility] Work Phone: Medications Current Medications Medication [...] times a day as needed HYDROCODONE-ACETAMI LUZMAHEN [id number] July Esquivel Aide [employer] Problems Active Problems Problem Classification Problem Date [...] (Body Mass Index) 35.95 kg/m2 Yuliet Aguilar [facility] Work Phone: 03-18-2017 13:100400 Body Temperature 98.6 [degF] Yuliet Aguilar [facility] Work Phone: 03-18-2017 13:10-0400 BP Diastolic 85 mm[Hg] Yuliet [facility] Work Phone: 03-18-2017 13:10-0400 BP Systolic 141 mm[Hg] [facility] Work Phone: 03-18-2017 13:10-0400 Height 157.48 cm [facility] Work Phone: 03-18-2017 13:10-0400 Pulse (Heart Rate) 73 /min [facility] Work Phone: 03-18-2017 13:10-0400 Respiratory Rate 18 /min [facility] Work Phone: 03-18-2017 13:10-0400 Weight 89.18 kg [facility] Work Phone: 10-19-2016 11:30-0400 Body Temperature 98.01 [degF] [facility] [employer] Work Phone: 10-19-2016 11:30-0400 BSA (Body Surface Area) 1.9 m2 [facility] Work Phone: 10-19-2016 11:30-0400 Height 157.48 cm [facility] Work Phone: 10-19-2016 11:30-0400 Weight 88.99 kg [facility] Work Phone: Encounters Encounter Date Encounter Type Care Provider Facility Start: 10-17-2020 End: 10-17-2020 Subsequent hospital visit by physician Korey Barry Work Phone: [facility] Rad Procedures Date Procedure Procedure Detail [...] - Td) DTaP/Tdap/Td vaccine (3 - Td) [place], [place] Start: 09-26-2020 End: 09-26-2020 Nurse Only [facility] [place] Start: 08-18-2020 Annual Wellness Visit (AWV) Annual Wellness Visit (AWV) [facility] Work Phone: Start: 04-09-2020 Influenza vaccination INFLUENZA (#1) [facility] Start: 03-26-2017 End: 03-26-2017 Appointment Appointment [facility] [employer] Work Phone: Start: 03-18-2017 End: 03-22-2017 Upper GI endoscopy, biopsy Upper gastrointestinal endoscopy; with biopsy [facility] [employer] Work Phone: Start: 10-28-2016 End: 03-26-2017 Upper GI endoscopy, biopsy Upper gastrointestinal endoscopy; with biopsy [facility] [employer] Work Phone: Start: 10-19-2016 End: 03-26-2017 Upper GI endoscopy, biopsy Upper gastrointestinal endoscopy; with biopsy [facility] [employer] Work Phone: Start: 10-09-2016 End: 10-09-2016 Endocrinology Referral [place] Work Phone: Start: 10-08-2016 End: 03-26-2017 Follow Up after Imaging/labs Follow Up after Imaging/labs [facility] [employer] Work Phone: Start: 10-08-2016 End: 10-09-2016 Gastric emptying study NM Gastric Emptying Study [facility] [employer] Work Phone: Start: 10-08-2016 End: 10-08-2016 HbA1c Hemoglobin A1C [facility] [employer] Work Phone: Start: 10-08-2016 End: 10-09-2016 X-ray exam, upper gi tract Upper GI & Small Bowel [facility] [employer] Work Phone: Start: 09-24-2016 End: 09-24-2016 [facility] [employer] Work Phone: Start: 09-24-2016 End: 09-24-2016 Follow Up Appt 1 month Follow Up Appt 1 month [place] Work Phone: Start: 09-24-2016 End: 09-24-2016 Pulmonary Function Test - complete Pulmonary Function Test - complete [facility] [employer] Work Phone: Start: 07-31-2016 End: 09-18-2016 Ct thorax w/o dye CT Chest without contrast [facility] [employer] Work Phone: Start: 07-31-2016 End: 07-31-2016 Follow Up Appt 1 month Follow Up Appt 1 month [place] Work Phone: Start: 07-31-2016 End: 07-31-2016 Pulmonary Function Test - complete Pulmonary Function Test - complete [place] Work Phone: Start: 07-31-2016 End: 09-18-2016 Pulmonary stress test/simple Pulmonary stress testing; simple (eg, 6-minute walk) [facility] [employer] Work Phone: Start: 07-31-2016 End: 09-18-2016 Tte w/doppler, complete Echo Complete with Color Flow [facility] Work Phone: Start: 2016 ADVANCE DIRECTIVE DISCUSSION ADVANCE DIRECTIVE DISCUSSION [facility] Start: 2016 BONE DENSITY BONE DENSITY [facility] Start: 2016 Pneumococcal 65+ years Vaccine (2 of 2 - PPSV23) Pneumococcal 65+ years Vaccine (2 of 2 - PPSV23) [place], [place] Start: 2016 PNEUMOVAX AGE 65 AND OVER WITH 5YR LOOKBACK (#1) PNEUMOVAX AGE 65 AND OVER WITH 5YR LOOKBACK (#1) [facility] Start: 2006 Screening for osteoporosis DEXA (modify frequency per FRAX score) [place], [place] Start: 2001 Screening for malignant neoplasm of breast Breast cancer screen [place], [place] Start: 2001 Screening for malignant neoplasm of colon Colon cancer screen colonoscopy [place] Start: 2001 Shingles Vaccine (1 of 2) Shingles Vaccine (1 of 2) [place] Start: 2001 SHINGRIX VACCINE (1 of 2) SHINGRIX VACCINE (1 of 2) [facility] Start: 2001 Tuberculosis screening COLORECTAL CANCER SCREENING,SEE MODIFIER [facility] Start: 1996 DIABETES SCREEN DIABETES SCREEN [facility] Start: 1996 LIPID SCREEN LIPID SCREEN [facility] Start: 1991 Diabetes screen Diabetes screen [place], [place] Start: 1991 Lipid panel [place]id [place] Start: 1991 Mammography MAMMOGRAM [facility] Start: 1970 Urine microalbumin profile DTAP,TDAP,TD (1 - Tdap) [facility] Start: 1969 HEPATITIS C SCREENING HEPATITIS C SCREENING [facility] Start: 1967 COVID-19 Vaccine (1 of 2) COVID-19 Vaccine (1 of 2) [facility] Work Phone: Start: 1951 Creatinine measurement Creatinine monitoring [place], [place] Start: 1951 Hepatitis C screening Hepatitis C screen [place], [place] Start: 1951 Potassium monitoring Potassium monitoring [place], [place] Payers Date Payer Category Payer Medicare BCBS MEDICARE AN THEM MEDIBLUE ESSENTIAL/PLUS [id number] 2020-Present [address] [address] [place] [address] 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 Social History Date Type Detail Facility Tobacco smoking stat [facility] Unknown if ever smoked [facility] Sex Assigned At Not on file [facility] Start: 08-15-2020 End: 10-17-2020 Tobacco smoking status NHIS Never smoker [place], [place] Exposure to SARS-CoV -2 (event) Not sure [place] Start: 10-17-2020 Tobacco use and exposure Never used [employer] Work Phone: Medical Equipment Procedure Code Equipment Code Equipment Original Text Equipment Identifier Dates use 1 TEST STRIP to TEST BLOOD SUGAR 4 TIMES A DAY [id number] Start: 07-24-2020 use 1 LANCET to TEST BLOOD SUGAR four times a day [id number] Start: 07-24-2020 use 1 PEN NEEDLE to inject MEDICATION subcutaneously four times a day [id number] Start: 10-07-2020 use as directed [id number] Start: 07-25-2020 Advance Directives No Advanced Directives Records FoundDocuments on File Type Date Recorded Patient 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 [facility]. provides no warranty or guarantee of the accuracy or completeness of information in this document.
[2023-08-22] MEDS: Azithromycin 500 MG in Dextrose 5%-Water (250mL Bag) 250 ML 250 MG IV (10:40)
--- OUTSIDE RECORDS SUMMARY | 2023-08-22 11:03 | XMS RPT_ITS | CCD ---
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 Name Role Phone Jerry MELVIN, Bolivar Rosado Unavailable Yuliet Aguilar Unavailable Unavailable Mike Richard Primary Care Provider [phone] Unavailable Primary Care Provider Billy Nowak Primary Care Provider Allergies Allergy Classification Reported Allergen(s) Allergy Type Date of Onset Reaction(s) Facility (6 sources) amoxicillin drug allergy 12-20-19 09 Hives [facility] Work Phone: (3 sources) cephalexin drug allergy 06-01-20 16 GI upset [facility] Work Phone: (3 sources) Cephalosporins (Antibiotic) drug allergy 06-01-20 16 trouble breathing and lip numbing [facility] Work Phone: (3 sources) ciprofloxacin drug allergy 06-01-20 16 edema [facility] Work Phone: (3 sources) codeine drug allergy 06-01-20 16 [facility] Work Phone: (3 sources) Corticosteroids drug allergy 06-01-20 16 anxious [facility] Work Phone: (3 sources) gabapentin drug allergy 06-01-20 16 dyspnea [facility] Work Phone: (3 sources) levoFLOXacin drug allergy 06-01-20 16 hives [facility] Work Phone: (3 sources) meperidine drug allergy 06-01-20 16 [facility] Work Phone: (3 sources) nortriptyline drug allergy 06-01-20 16 headache [facility] Work Phone: [phone] (3 sources) sertraline drug allergy 06-01-20 16 felt poorly [facility] Work Phone: [phone] (3 sources) venlafaxine drug allergy 06-01-20 16 anxiety increase [facility] Work Phone: (1 source) Codeine Drug Allergy 04-14-20 16 Other: See Comments [facility] (1 source) Contrast media Drug Allergy 04-14-20 16 [facility] (1 source) levoFLOXacin Drug Allergy 04-14-20 16 [facility] (1 source) Omeprazole Drug Allergy 04-14-20 16 Shortness of Breath [facility] (2 sources) Pseudoephedrine Drug Allergy 04-14-20 16 Rash [facility] (1 source) raNITIdine Drug Allergy 04-14-20 16 [facility] (2 sources) Cephalexin Drug Allergy 06-01-20 16 Other (See Comments) [facility] [place] [place] [facility] Iodides Propensity to adverse reactions to drug 07-14-20 19 Hives [place], [place] (1 source) Pseudoephedrine Drug Allergy 12-20-19 09 [facility] Work Phone: (1 source) Morphine And Related Propensity to adverse reactions to drug 12-20-19 [facility] Work Phone: Medications Current Medications Medication [...] times a day as needed HYDROCODONE-ACETAMI LUZMAHEN [phone] July Esquivel 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 [employer]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 Problems Problem Classification Problem Date [...] (Body Mass Index) 35.95 kg/m2 Yuliet Aguilar [facility] Work Phone: 03-18-2017 [id number] Body Temperature 98.6 [degF] Yuliet Aguilar [facility] Work Phone: 03-18-2017 13:10-0400 BP Diastolic 85 mm[Hg] Yuliet [facility] Work Phone: 03-18-2017 13:10-0400 BP Systolic 141 mm[Hg] [facility] Work Phone: 03-18-2017 13:10-0400 Height 157.48 cm [facility] Work Phone: 03-18-2017 13:10-0400 Pulse (Heart Rate) 73 /min [facility] Work Phone: 03-18-2017 13:10-0400 Respiratory Rate 18 /min [facility] Work Phone: 03-18-2017 13:10-0400 Weight 89.18 kg [facility] Work Phone: 10-19-2016 11:30-0400 Body Temperature 98.01 [degF] [facility] Work Phone: 10-19-2016 11:30-0400 BSA (Body Surface Area) 1.9 m2 [facility] Work Phone: 10-19-2016 11:30-0400 Height 157.48 cm [facility] Work Phone: 10-19-2016 11:30-0400 Weight 88.99 kg [facility] Work Phone: Encounters Encounter Date Encounter Type Care Provider Facility Start: 10-17-2020 End: 10-17-2020 Subsequent hospital visit by physician Korey Barry Work Phone: [facility] Rad Procedures Date Procedure Procedure Detail [...] - Td) DTaP/Tdap/Td vaccine (3 - Td) [place], [place] Start: 09-26-2020 End: 09-26-2020 Nurse Only [facility] [place] Start: 08-18-2020 Annual Wellness Visit (AWV) Annual Wellness Visit (AWV) [facility] Work Phone: Start: 04-09-2020 Influenza vaccination INFLUENZA (#1) [facility] Start: 03-26-2017 End: 03-26-2017 Appointment Appointment [facility] Work Phone: Start: 03-18-2017 End: 03-22-2017 Upper GI endoscopy, biopsy Upper gastrointestinal endoscopy; with biopsy [facility] Work Phone: Start: 10-28-2016 End: 03-26-2017 Upper GI endoscopy, biopsy Upper gastrointestinal endoscopy; with biopsy [facility] Work Phone: Start: 10-19-2016 End: 03-26-2017 Upper GI endoscopy, biopsy Upper gastrointestinal endoscopy; with biopsy [facility] Work Phone: Start: 10-09-2016 End: 10-09-2016 Endocrinology Referral [facility] Work Phone: Start: 10-08-2016 End: 03-26-2017 Follow Up after Imaging/labs Follow Up after Imaging/labs [facility] Work Phone: Start: 10-08-2016 End: 10-09-2016 Gastric emptying study NM Gastric Emptying Study [facility] Work Phone: Start: 10-08-2016 End: 10-08-2016 HbA1c Hemoglobin A1C [facility] Work Phone: Start: 10-08-2016 End: 10-09-2016 X-ray exam, upper gi tract Upper GI & Small Bowel [facility] Work Phone: Start: 09-24-2016 End: 09-24-2016 [facility] Work Phone: Start: 09-24-2016 End: 09-24-2016 Follow Up Appt 1 month Follow Up Appt 1 month [facility] Work Phone: Start: 09-24-2016 End: 09-24-2016 Pulmonary Function Test - complete Pulmonary Function Test - complete [facility] Work Phone: Start: 07-31-2016 End: 09-18-2016 Ct thorax w/o dye CT Chest without contrast [facility] Work Phone: Start: 07-31-2016 End: 07-31-2016 Follow Up Appt 1 month Follow Up Appt 1 month [facility] Work Phone: Start: 07-31-2016 End: 07-31-2016 Pulmonary Function Test - complete Pulmonary Function Test - complete [facility] Work Phone: Start: 07-31-2016 End: 09-18-2016 Pulmonary stress test/simple Pulmonary stress testing; simple (eg, 6-minute walk) [facility] Work Phone: Start: 07-31-2016 End: 09-18-2016 Tte w/doppler, complete Echo Complete with Color Flow [facility] Work Phone: Start: 2016 ADVANCE DIRECTIVE DISCUSSION ADVANCE DIRECTIVE DISCUSSION [facility] Start: 2016 BONE DENSITY BONE DENSITY [facility] Start: 2016 Pneumococcal 65+ years Vaccine (2 of 2 - PPSV23) Pneumococcal 65+ years Vaccine (2 of 2 - PPSV23) [place], [place] Start: 2016 PNEUMOVAX AGE 65 AND OVER WITH 5YR LOOKBACK (#1) PNEUMOVAX AGE 65 AND OVER WITH 5YR LOOKBACK (#1) [facility] Start: 2006 Screening for osteoporosis DEXA (modify frequency per FRAX score) [place], [place] Start: 2001 Screening for malignant neoplasm of breast Breast cancer screen [place], [place] Start: 2001 Screening for malignant neoplasm of colon Colon cancer screen colonoscopy [place], [place] Start: 2001 Shingles Vaccine (1 of 2) Shingles Vaccine (1 of 2) [place] Start: 2001 SHINGRIX VACCINE (1 of 2) SHINGRIX VACCINE (1 of 2) [facility] Start: 2001 Tuberculosis screening COLORECTAL CANCER SCREENING,SEE MODIFIER [facility] Start: 1996 DIABETES SCREEN DIABETES SCREEN [facility] Start: 1996 LIPID SCREEN LIPID SCREEN [facility] Start: 1991 Diabetes screen Diabetes screen [place], [place] Start: 1991 Lipid panel Lipid screen [place] Start: 1991 Mammography MAMMOGRAM [facility] Start: 1970 Urine microalbumin profile DTAP,TDAP,TD (1 - Tdap) [facility] Start: 1969 HEPATITIS C SCREENING HEPATITIS C SCREENING [facility] Start: 1967 COVID-19 Vaccine (1 of 2) COVID-19 Vaccine (1 of 2) [facility] Work Phone: Start: 1951 Creatinine measurement Creatinine monitoring [place], [place] Start: 1951 Hepatitis C screening Hepatitis C screen [place], [place] Start: 1951 Potassium monitoring Potassium monitoring [place], [place] Payers Date Payer Category Payer Medicare BCBS MEDICARE AN THEM MEDIBLUE ESSENTIAL/PLUS [id number] 2020-Present [address] [address] [place] [address] [id number] 2004 Unknown MMO [employer] SUPER MED PLUS BH [id number] 2004-2010 PPO [id number] Social History Date Type Detail Facility Tobacco smoking stat [facility] Unknown if ever smoked [facility] Sex Assigned At Not on file [facility] Start: 08-15-2020 End: 10-17-2020 Tobacco smoking status NHIS Never smoker [place], [place] Exposure to SARS-CoV -2 (event) Not sure [place] Start: 10-17-2020 Tobacco use and exposure Never used [employer] Work Phone: Medical Equipment Procedure Code Equipment Code Equipment Original Text Equipment Identifier Dates use 1 TEST STRIP to TEST BLOOD SUGAR 4 TIMES A DAY [id number] Start: 07-24-2020 use 1 LANCET to TEST BLOOD SUGAR four times a day [id number] Start: 07-24-2020 use 1 PEN NEEDLE to inject MEDICATION subcutaneously four times a day [id number] Start: 10-07-2020 use as directed [id number] Start: 07-25-2020 Advance Directives No Advanced Directives Records FoundDocuments on File Type Date 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 [facility]. provides no warranty or guarantee of the accuracy or completeness of information in this document.
[2023-08-22] MEDS: Insulin Lispro 100 UNIT/ML INSULN.PEN SC ×5 (12:02→20:18)
[2023-08-22 13:00] LABS: Bedside Glucose 284 mg/dL (74-106)
[2023-08-22] MEDS: Meropenem 1 GM in 0.9% Normal Saline (100mL MB+) 100 ML IV ×2 (13:28→20:23)
[2023-08-22] MEDS: Lactulose 20 GM/30 ML UDC 30 GM PO (13:28)
[2023-08-22] MEDS: Oxymetazoline 0.05% 1 SPRAY SPRAY.BTL NASAL ×2 (13:28→20:23)
[2023-08-22] MEDS: busPIRone 5 MG Tablet 7.5 MG PO ×2 (13:32→20:24)
[2023-08-22] MEDS: Acetaminophen 500 MG Tablet 1000 MG PO ×2 (13:33→20:27)
[2023-08-22] MEDS: Potassium Chloride Oral Tablet 20 MEQ PO (17:01)
[2023-08-22] MEDS: Furosemide 20 MG Tablet PO (17:01)
[2023-08-22 17:29] LABS: Bedside Glucose 219 mg/dL (74-106)
--- NOTE | 2023-08-22 19:29 | HP.PCM.HOS_ITS ---
HPI - General General Date of Admission: 08/22/23 Date of Service: 08/22/23 Chief Complaint: Shortness of breath HPI Narrative TIM CEDILLO, is a 73 F who presents to the emergency room at [facility] after being sent in from an extended care facility at which she is receiving rehab services due to increased shortness of breath. Patient states the last couple of days her breathing has become worse, she is on chronic oxygen at the senior living at 4 L. Workup in the emergency room included a CBC which showed an elevated white blood cell count of 13.6, hemoglobin was 11.2, sodium was low at 128, and glucose was 205. Chest x-ray was obtained which showed a left lower lobe infiltrate. Patient was given Zithromax IV in the emergency room, the emergency room physician told me that with the least amount of movement, the patient's pulse ox decreases on her baseline O2. Patient also had positive RSV test in the emergency room and was wheezing on auscultation. She received 1 dose of IV corticosteroids Patient will be admitted for left lower lobe pneumonia and RSV infection with hypoxia, I have elected to change her antibiotic coverage to meropenem due to her comorbidities (COPD/asthma/chronic hypoxic respiratory failure), she will receive aerosol treatments and I will place her on IV corticosteroids. Sputum c ulture will be obtained if possible, urine will be obtained for Legionella and strep antigens. Repeat labs will be obtained in the morning to monitor her white blood cell count and serum sodium. [facility] Medical History Anemia Anxiety and depression Asthma with COPD Atherosclerotic heart disease of [place] coronary artery without angina pectoris Back pain Bilateral pneumonia Chest pain Chronic back pain Chronic respiratory failure COPD (chronic obstructive pulmonary disease) Diastolic CHF Endotracheally intubated Former smoker Hepatitis HLD (hyperlipidemia) Hypertension Morbid obesity Obesity MARK treated with BiPAP Psoriasis Smoking greater than 40 pack years Thyroid nodule Type 2 diabetes mellitus Home Medications Handicap Joshuaard #1 ea 12/12/20 [Rx Last Taken Unknown] bisacodyl 5 mg tablet,delayed release (Dulcolax (bisacodyl)) 5 mg PO QHS PRN constipation 30 days #30 tabs 11/13/21 [Rx Last Taken Unknown] pen needle, diabetic 32 gauge x #50 ea 02/11/22 [Rx Last Taken Unknown] blood sugar diagnostic (True Metrix Glucose Test Strip) #100 ea 09/11/22 [Rx Last Taken Unknown] blood-glucose meter (True Metrix Glucose Meter) #1 ea 09/11/22 [Rx Last Taken Unknown] albuterol sulfate 90 mcg/actuation aerosol inhaler 2 puff inhalation Q6H PRN shortness of breath or wheezing #18 grams 11/06/22 [Rx Last Taken Unknown] ipratropium 0.5 mg-albuterol 3 mg (2.5 mg base)/3 mL nebulization soln 3 ml inhalation Q4H PRN PRN SOB &/OR WHEEZING #180 mL 11/10/22 [Rx Last Taken Unknown] cane #1 ea 11/16/22 [Rx Last Taken Unknown] citalopram 40 mg tablet 40 mg PO QHS depression #90 tabs 11/16/22 [Rx Last Taken Unknown] isosorbide mononitrate 60 mg tablet,extended release 24 hr 60 mg PO DAILY BP #90 tabs 12/26/22 [Rx Last Taken Unknown] nitroglycerin 0.4 mg sublingual tablet 0.4 mg sublingual Q5-15M PRN Pain #30 tabs 12/26/22 [Rx Last Taken Unknown] flash glucose sensor ([employer] Emily 2 Sensor kit) #2 ea 01/06/23 [Rx Last Taken Unknown] atorvastatin 80 mg tablet 80 mg PO QHS cholesterol 01/26/23 [History Last Taken Unknown] clopidogrel 75 mg tablet 75 mg PO DAILY blood thinner 01/26/23 [History Last Taken Unknown] furosemide 20 mg tablet (Lasix) 20 mg PO BID diuretic 01/26/23 [History Last Taken Unknown] metoprolol tartrate 25 mg tablet 12.5 mg PO BID blood pressure 01/26/23 [History Last Taken Unknown] flash glucose scanning reader ([employer] Emily 2 Rentz) #1 ea 03/23/23 [Rx Last Taken Unknown] ondansetron HCl 4 mg tablet 4 mg PO Q6H PRN nausea and vomiting #14 tabs 04/16/23 [Rx Last Taken Unknown] sucralfate 1 gram tablet (Carafate) 1 g PO TID PRN acid reflux #20 tabs 04/16/23 [Rx Last Taken Unknown] pantoprazole 40 mg tablet,delayed release 40 mg PO BID stomach #180 tabs 05/20/23 [Rx Last Taken Unknown] acetaminophen 500 mg tablet 1,000 mg (2 x 500 mg) PO Q8 7 days #0 tabs 06/04/23 [Rx Last Taken 08/21/23] insulin lispro 100 unit/mL subcutaneous pen (Humalog KwikPen (U-100) Insulin) 2 - 11 unit subcut ACHS #0 mL 06/04/23 [Rx Last Taken 08/21/23] losartan 25 mg tablet 50 mg (2 x 25 mg) PO DAILY blood pressure 30 days #0 tabs 06/04/23 [Rx Last Taken Unknown] aluminum-magnesium hydroxide 225 mg-200 mg/5 mL oral suspension 30 ml PO Q4H PRN UPSET STOMACH 07/23/23 [History Last Taken Unknown] buspirone 5 mg tablet 7.5 mg PO TID 07/23/23 [History Last Taken Unknown] dextrose 40 % oral gel (Glucose Gel) 10 g PO Q15M PRN hypoglycemia 07/23/23 [History Last Taken Unknown] guaifenesin 200 mg/5 mL oral liquid 400 mg PO Q4H PRN cough 07/23/23 [History Last Taken Unknown] therapeutic multivitamin 1 tab PO DAILY unknown 07/23/23 [History Last Taken 08/21/23] budesonide 1 mg/2 mL suspension for nebulization 0.5 mg inhalation BID 08/13/23 [History Last Taken Unknown] insulin glargine 100 unit/mL (3 mL) subcutaneous pen (Basaglar KwikPen U-100 Insulin) 32 unit subcut QHS diabetic managment 08/13/23 [History Last Taken 08/21/23] potassium chloride 20 mEq tablet,extended release 20 meq PO BID 08/22/23 [Hi story Last Taken Unknown] prednisone 10 mg tablet 10 mg PO DAILY 08/22/23 [History Last Taken Unknown] trazodone 50 mg tablet 25 mg PO QHS 08/22/23 [History Last Taken Unknown] Allergy/AdvReac Type Severity Reaction Status Date / Time Iodinated Contrast Media Allergy Severe Anaphylaxis Verified 08/22/23 06:34 amoxicillin [Amoxicillin] Allergy Intermediate Rash Verified 08/22/23 06:34 hydrocodone Allergy Intermediate SWELLING Verified 08/22/23 06:34 gabapentin [From Neurontin] Allergy Shortness Verified 08/22/23 06:34 of breath levofloxacin [From Levaquin] Allergy Hives Verified 08/22/23 06:34 pseudoephedrine HCl Allergy Shortness Verified 08/22/23 06:34 [From Sudafed] of breath red dye Allergy Hives Verified 08/22/23 06:34 prednisone AdvReac Severe mean mood Verified 08/22/23 06:34 clonazepam [From Klonopin] AdvReac Depression Verified 08/22/23 06:34 codeine AdvReac HEADACHE Verified 08/22/23 06:34 Family History Brother Heart disease Mother Colon cancer Heart disease Surgical History History of cholecystectomy History of left heart catheterization (LHC) (~09/23/20) Stented coronary artery (12/28/18) Social History Smoking Status: Former smoker pack-years: 40 how long ago did patient quit smokin year ago alcohol intake: never substance use type: does not use caffeine: Yes Type: carbonated beverages and tea what type of physical activity do you participate in: none ROS Constitutional Constitutional: Denies anorexia, change in weight, fever(s), night sweats or weakness Eyes Eyes: Denies blurry vision, change in vision, discharge from eye(s) or eye pain Cardiovascular Cardiovascular: Denies chest pain, claudication, edema or palpitations Respiratory/Chest Respiratory/Chest: Reports cough, dyspnea, shortness of breath at rest and shortness of breath with exertion; Denies hemoptysis Gastrointestinal Gastrointestinal: Denies abdominal pain, constipation, diarrhea, hematemesis, hematochezia, melena, nausea or vomiting Genitourinary Genitourinary: Denies dysuria, hematuria, urinary frequency, urinary hesitancy, urinary incontinence or urinary urgency Musculoskeletal Musculoskeletal: Denies back pain, joint pain, joint stiffness, joint swelling, myalgias or neck pain Neurologic Neurologic: Denies abnormal gait, abnormal speech, dizziness, focal weakness, headache(s), loss of vision, numbness, other visual disturbances, paresthesias, syncope or tingling Psychiatric Psychiatric: Denies anxiety, cognitive impairment, depression, irritability, mood swings or suicidal ideation Endocrine Endocrinology: Denies change in body appearance, cold intolerance, excessive sweating, heat intolerance, polydipsia or polyuria Hematologic/Lymphatic Hematologic/Lymphatic: Denies none, anemia, easy bleeding, easy bruising or lymphadenopathy Allergic/Immunologic Allergic/Immunologic: Denies rhinitis, urticaria, eczemia or asthma Vital Signs Vital Signs Vital Signs: 08/22/23 06:26 08/22/23 06:36 08/22/23 07:26 Temperature 97.8 F Temperature Source Temporal Pulse Rate 85 Respiratory Rate 28 H Respiratory Effort Normal Respiratory Depth Respiratory Pattern Blood Pressure 162/110 H Blood Pressure Mean 127 Blood Pressure Source Pulse Ox 96 Oxygen Delivery Method Nasal Cannula Nasal Cannula Oxygen Flow Rate (L/min) 4 4 08/22/23 07:43 08/22/23 09:55 08/22/23 11:00 Temperature 97.6 F L Temperature Source Pulse Rate 81 108 H 64 Respiratory Rate 20 H 36 H 14 Respiratory Effort Respiratory Depth Respiratory Pattern Tachypnea Blood Pressure 136/78 H Blood Pressure Mean 97 Blood Pressure Source Pulse Ox 93 99 Oxygen Delivery Method Nasal Cannula Oxygen Flow Rate (L/min) 4 08/22/23 11:45 08/22/23 14:00 08/22/23 15:45 Temperature 98.6 F Temperature Source Oral Pulse Rate 93 88 Respiratory Rate 16 21 H Respiratory Effort Short of Breath Labored Respiratory Depth Shallow Respiratory Pattern Tachypnea Normal Blood Pressure 147/54 H Blood Pressure Mean 85 Blood Pressure Source Monitor Pulse Ox 94 Oxygen Delivery Method Nasal Cannula Nasal Cannula Oxygen Flow Rate (L/min) 6 6 08/22/23 16:57 Temperature 97.6 F L Temperature Source Oral Pulse Rate 85 Respiratory Rate 16 Respiratory Effort Respiratory Depth Respiratory Pattern Blood Pressure 147/115 H Blood Pressure Mean 125 Blood Pressure Source Monitor Pulse Ox 94 Oxygen Delivery Method Nasal Cannula Oxygen Flow Rate (L/min) 6 Weight Weight: 99.7 kg Body Mass Index (BMI) 39.6 Physical Exam Const alert, oriented x3 and no apparent distress General Appearance: cooperative, well kempt and well developed Orientation / Consciousness: awake, oriented to person, oriented to place and oriented to time HEENT normocephalic, head/scalp atraumatic, hearing grossly normal bilaterally and moist oral mucous membranes Eyes PERRL, EOMs intact bilaterally and conjunctivae normal Neck supple, no JVD, thyroid normal and no carotid bruits General: trachea midline Resp normal respiratory effort, no retractions and no use of accessory muscles Resp Narrative: Scattered expiratory wheezes are noted bilaterally, inspiratory rales are noted at the left lung base Auscultation: Negative for rales, rhonchi or wheezes Cardio regular rate, regular rhythm, S1 normal heart sound, S2 normal heart sound, no murmurs, no rub and no gallops GI normal to inspection, nondistended, normoactive bowel sounds, soft to palpation, non-tender and non-distended Extremity no clubbing, cyanosis or edema Skin no rashes or lesions noted General Skin Exam: no breakdown Neuro oriented x3, CN's II-XII intact bilaterally, no focal motor deficits and no sensory deficits noted Sensorium / Orientation: awake and alert Speech: speech normal Psych affect normal Results Lab / Micro Data 08/23/23 06:00 08/23/23 06:00 Labs: Laboratory Results - last 24 hr 08/22/23 06:40: WBC 13.6 H, RBC 3.98 L, Hgb 11.2 L, Hct 35.0 L, MCV 87.9, MCH 28.1, MCHC 32.0, RDW Std Deviation 40.6, RDW Coeff of Malcom 12.6, Plt Count 324, MPV 10.4, Immature Gran % (Auto) 0.500, Neut % (Auto) 70.7 H, Lymph % (Auto) 20 .9, Crawford % (Auto) 5.7, Eos % (Auto) 1.5, Baso % (Auto) 0.7, Absolute Neuts (auto) 9.6 H, Absolute Lymphs (auto) 2.84, Nucleated RBC % 0, Sodium 128 L, Pot assium 3.9, Chloride 91 L, Carbon Dioxide 30.0, Anion Gap 7, BUN 9, Creatinine 0.71, Estim Creat Clear Calc 71.15, Est GFR (MDRD) Af Amer 104, Est GFR (MDRD) Non-Af 86, BUN/Creatinine Ratio 12.6, Glucose 205 H, Calcium 8.9, Troponin I High Sens 10, B-Natriuretic Peptide 102.0 H 08/22/23 07:40: Lactic Acid 1.7 08/22/23 12:01: POC Glucose 284 H 08/22/23 16:56: POC Glucose 219 H Micro: Microbiology 08/22/23 07:40 Mucosa - Nose SARS-CoV-2, Influenza & RSV (PCR) - Final RSV Rhythm Strip Rhythm Strip: Sinus Rhythm Rate: 78 Ectopy: PVC(s) Imagaing Radiology Impression Chest X-Ray 08/22/23 07:01 IMPRESSION: Dense consolidation left lower lung may be due to pneumonia. Electronically Signed: Raz Joe MD at 7:29 EST , Assessment & Plan Assessment/Plan (1) Chronic hypoxemic respiratory failure: PLAN: Plan 1. Left lower lobe community-acquired pneumonia-due to the patient's high morbi dity, patient will be admitted to PCU and placed on IV meropenem, she will receive aerosol treatments, sputum culture will be obtained, urine antigen for Legionella and strep pneumo will be obtained, chest x-ray will be repeated tomorrow #2 acute RSV infection-patient will be placed on IV corticosteroids, she will remain on aerosol treatments #3 chronic hypoxic respiratory failure-patient is on 4 L of oxygen at baseline, pulse ox will be monitored #4 asthma with COPD-again due to the patient's RSV infection and the presence of COPD, I have elected to place her on IV corticosteroids #5 type 2 diabetes-blood sugars will be monitored, sliding scale insulin was given as needed Total clinical time spent by myself addressing the patient's medical issues, reviewing all of her data, and collaborating with patient's care team: 55 minutes Charges/Coding Visit Charges Inpatient E&M: 45911 Init Hosp L2
[2023-08-22] MEDS: Insulin Glargine-YFGN 100 UNIT/ML Pen 32 UNIT SC (20:17)
[2023-08-22] MEDS: Heparin Injection (Vial) 5,000 UNIT/ML VIAL 5000 UNIT SC (20:19)
[2023-08-22] MEDS: 0.9% Saline Lock 10 ML Syringe IV (20:23)
[2023-08-22] MEDS: traZODone 50 MG Tablet 25 MG PO (20:25)
[2023-08-22] MEDS: Metoprolol Tartrate 25 MG Tablet 12.5 MG PO (20:25)
[2023-08-22] MEDS: Atorvastatin Calcium 80 MG Tablet PO (20:27)
[2023-08-22] MEDS: Pantoprazole Sodium 40 MG Tablet PO (20:27)
[2023-08-22] MEDS: Citalopram 40 MG TABLET PO (20:27)
[2023-08-22 21:15] LABS: Bedside Glucose 220 mg/dL (74-106)
[2023-08-23] VITALS (11 sets, daily range): BP systolic 117–154; BP diastolic 51–87; PULSE 74–84; RESP 16–22; TEMP 36.2–36.9; O2SAT 96–100
--- NOTE | 2023-08-23 04:42 | RAD_ITS ---
INDICATION: pneumonia EXAMINATION/TECHNIQUE: X-RAY - AP view of chest COMPARISON: Two-view chest x-ray from one day prior FINDINGS: LINES/DEVICES: None. LUNGS: Persistent left basilar opacification. No sizable pleural effusion. No detectable pneumothorax. MEDIASTINUM AND CARDIOVASCULAR STRUCTURES: Heart size within normal limits for imaging technique. Atherosclerotic calcifications along aorta. BONES AND SOFT TISSUES: Skeletal degenerative changes. RAD/Chest 1 View (Portable) IMPRESSION: Persistent left basilar opacification Electronically Signed: Jorge Mcdonnell MD at 7:57 EST ,
[2023-08-23] MEDS: busPIRone 5 MG Tablet 7.5 MG PO ×3 (04:49→20:17)
[2023-08-23] MEDS: Acetaminophen 500 MG Tablet 1000 MG PO ×3 (04:50→20:17)
[2023-08-23] MEDS: 0.9% Saline Lock 10 ML Syringe IV (04:52)
[2023-08-23] MEDS: Meropenem 1 GM in 0.9% Normal Saline (100mL MB+) 100 ML IV ×3 (04:52→22:14)
[2023-08-23 06:42] LABS: Absolute Lymphocyte Count 0.99 X10^3/uL (0.83-4.51); Absolute Neutrophil Count 11.3 X10^3/uL (2.0-7.7); Basophil# 0.03 X10^3/uL; Basophil% 0.2 % (0-1); Hemoglobin 11.5 g/dL (12.0-15.0); Lymphocyte # 0.99 X10^3/ul (0.83-4.51); Lymphocyte % 7.7 % (19-41); Mean Corp Hgb Conc 31.9 g/dL (32-36); Mean Corpuscular Hgb 27.6 pg (27.0-32.0); Mean Corpuscular Volume 86.5 fL (81-99); Mean Platelet Vol. 10.3 fl (6.2-12.0); Monocyte# 0.45 X10^3/uL; Monocyte% 3.5 % (0-10); NRBC Flagged by Analyzer 0 % (0-5); Neutrophil # 11.33 X10^3/uL (2.7-7.7); Neutrophil % 87.7 % (47-70); Platelet Count 371 K/mm3 (150-450); RBC Distribution Width CV 12.9 % (11.6-14.6); RBC Distribution Width SD 41.1 fl (35.1-43.9); Red Blood Count 4.16 M/mm3 (4.2-5.4); White Blood Count 12.9 K/mm3 (4.4-11.0)
[2023-08-23 07:07] LABS: Anion Gap 7 (5-15); BUN 11 mg/dL (7-18); BUN/Creat Ratio 15.3 RATIO (10-20); Calcium,Total 9.5 mg/dL (8.5-10.1); Chloride 96 mmol/L (98-107); Creatinine, Serum 0.72 mg/dL (0.55-1.02); EST Glomerular Filtration Rate 85 mL/min (>60); Est Glom Filt Rate - Afr Amer 103 mL/min (>60); Estimated Creatinine Clearance 70.18 ml/min; Glucose 199 mg/dL (74-106); Potassium 4.6 mmol/L (3.5-5.1); Sodium Level 134 mmol/L (136-145)
[2023-08-23] MEDS: Ipratropium/Albuterol Sulfate 3 ML AMPUL.NEB INHALATION ×4 (07:17→20:33)
[2023-08-23] MEDS: Oxymetazoline 0.05% 1 SPRAY SPRAY.BTL NASAL ×2 (09:50→20:15)
[2023-08-23] MEDS: Furosemide 20 MG Tablet PO ×2 (09:50→18:00)
[2023-08-23] MEDS: Potassium Chloride Oral Tablet 20 MEQ PO ×2 (09:50→18:00)
[2023-08-23] MEDS: Isosorbide Mononitrate 60 MG Tablet PO (09:51)
[2023-08-23] MEDS: Heparin Injection (Vial) 5,000 UNIT/ML VIAL 5000 UNIT SC ×2 (09:51→20:13)
[2023-08-23] MEDS: Clopidogrel Bisulfate 75 MG Tablet PO (09:51)
[2023-08-23] MEDS: Pantoprazole Sodium 40 MG Tablet PO ×2 (09:51→20:17)
[2023-08-23] MEDS: Losartan Potassium 50 MG Tablet PO (09:52)
[2023-08-23] MEDS: Insulin Lispro 100 UNIT/ML INSULN.PEN SC ×7 (09:52→20:12)
[2023-08-23] MEDS: Metoprolol Tartrate 25 MG Tablet 12.5 MG PO ×2 (11:50→20:16)
[2023-08-23 12:14] LABS: Bedside Glucose 214 mg/dL (74-106)
[2023-08-23 12:14] LABS: Bedside Glucose 271 mg/dL (74-106)
--- NOTE | 2023-08-23 12:23 | CASEMGMT ---
Addendum entered by Deborah Mojica 08/23/23 12:53: Discharge Planning Patient is a bedhold at [facility]. Deborah Mojica, Discharge Planning Asst. Original Note: Discharge Planning Updates sent to [facility] via [facility]. Asked if patient was a bedhold. Awaiting response. Deborah Mojica, Discharge Planning Asst.
[2023-08-23 17:05] LABS: Bedside Glucose 169 mg/dL (74-106)
[2023-08-23] MEDS: Insulin Glargine-YFGN 100 UNIT/ML Pen 32 UNIT SC (20:12)
[2023-08-23] MEDS: Citalopram 40 MG TABLET PO (20:17)
[2023-08-23] MEDS: traZODone 50 MG Tablet 25 MG PO (20:18)
[2023-08-23] MEDS: Atorvastatin Calcium 80 MG Tablet PO (20:18)
[2023-08-23 20:38] LABS: Bedside Glucose 266 mg/dL (74-106)
--- NOTE | 2023-08-23 21:24 | PN.HOSP_ITS ---
Reason for Visit Reason for Visit: Diagnoses Other specified viral diseases (08/22/23) Chronic respiratory failure with hypoxia (08/22/23) Subjective Subjective Patient was seen and examined today, her chest x-ray showed no appreciable change from yesterday, patient is on 4 L of nasal cannula oxygen at rest today. Objective Data Objective Data Vital Signs: Vital Signs Temp Pulse Resp BP Pulse Ox O2 Del Method O2 Flow Rate 97.5 F L 84 22 H 151/61 H 98 Nasal Cannula 4 08/23/23 20:07 08/23/23 20:33 08/23/23 20:33 08/23/23 20:16 08/23/23 20:35 08/23/23 20:35 08/23/23 20:35 Oxygen Flow Rate (L/min) 4 Oxygen Delivery Method Nasal Cannula Weight: 99.7 kg Body Mass Index (BMI) 39.6 Intake & Output: Intake and Output for Last 24 Hours 08/21/23 08/22/23 08/23/23 23:59 23:59 23:59 Intake Total 1425 / 1425 360 / 360 Balance 1425 / 1425 360 / 360 Lab / Micro Data 08/23/23 06:00 08/23/23 06:00 Labs: Laboratory Results - last 24 hr 08/23/23 06:00: WBC 12.9 H, RBC 4.16 L, Hgb 11.5 L, Hct 36.0 L, MCV 86.5, MCH 27.6, MCHC 31.9 L, RDW Std Deviation 41.1, RDW Coeff of Malcom 12.9, Plt Count 371, MPV 10.3, Immature Gran % (Auto) 0.900, Neut % (Auto) 87.7 H, Lymph % (Auto) 7.7 L, [place] % (Auto) 3.5, Eos % (Auto) 0.0, Baso % (Auto) 0.2, Absolute Neuts (auto) 11.3 H, Absolute Lymphs (auto) 0.99, Nucleated RBC % 0, Sodium 134 L, Potassium 4.6, Chloride 96 L, Carbon Dioxide 31.0, Anion Gap 7, BUN 11, Creatinine 0.72, Estim Creat Clear Calc 70.18, Est GFR (MDRD) Af Amer 103, Est GFR (MDRD) Non-Af 85, BUN/Creatinine Ratio 15.3, Glucose 199 H, Calcium 9.5 08/23/23 09:48: POC Glucose 214 H 08/23/23 11:49: POC Glucose 271 H 08/23/23 16:39: POC Glucose 169 H 08/23/23 20:09: POC Glucose 266 H Micro: Microbiology 08/23/23 18:50 Urine, Clean Catch Legionella Antigen - Final 08/23/23 18:50 Urine, Clean Catch Streptococcus pneumoniae Antigen (M - Final 08/22/23 07:40 Mucosa - Nose SARS-CoV-2, Influenza & RSV (PCR) - Final RSV Radiography Diagnostic Testing: Radiology Impression Chest X-Ray 08/23/23 04:42 IMPRESSION: Persistent left basilar opacification Electronically Signed: Jorge Mcdonnell MD at 7:57 EST , Rhythm Strip Rhythm Strip: Sinus Rhythm Rate: 78 Ectopy: PVC(s) Physical Exam Narrative alert, oriented x3 and no apparent distress General Appearance: cooperative, well kempt and well developed Orientation / Consciousness: awake, oriented to person, oriented to place and oriented to time HEENT normocephalic, head/scalp atraumatic, hearing grossly normal bilaterally and moist oral mucous membranes Eyes PERRL, EOMs intact bilaterally and conjunctivae normal Neck supple, no JVD, thyroid normal and no carotid bruits General: trachea midline Resp normal respiratory effort, no retractions and no use of accessory muscles Resp Narrative: Scattered expiratory wheezes are noted bilaterally, inspiratory rales are noted at the left lung base Auscultation: Negative for rales, rhonchi or wheezes Cardio regular rate, regular rhythm, S1 normal heart sound, S2 normal heart sound, no murmurs, no rub and no gallops GI normal to inspection, nondistended, normoactive bowel sounds, soft to palpation, non-tender and non-distended Extremity no clubbing, cyanosis or edema Skin no rashes or lesions noted General Skin Exam: no breakdown Neuro oriented x3, CN's II-XII intact bilaterally, no focal motor deficits and no sensory deficits noted Sensorium / Orientation: awake and alert Speech: speech normal Psych affect normal Assessment & Plan Assessment/Plan (1) Chronic hypoxemic respiratory failure: PLAN: Plan 1. Left lower lobe community-acquired pneumonia-patient remains on IV meropenem at this time, she will receive aerosol treatments #2 acute RSV infection-patient will be placed on IV corticosteroids, she will remain on aerosol treatments #3 chronic hypoxic respiratory failure-patient is on 4 L of oxygen at baseline, pulse ox will be monitored #4 asthma with COPD-again due to the patient's RSV infection and the presence of COPD, I have elected to place her on IV corticosteroids #5 type 2 diabetes-blood sugars will be monitored, sliding scale insulin was given as needed Total clinical time spent by myself addressing the patient's medical issues, reviewing all of her data, and collaborating with patient's care team: 35 minutes Capacity Legal Customer Solutions Representative Reflex Medical hold order details:: IF a medical hold is selected below, a suggested order for a MEDICAL HOLD will reflex upon signing the document. Next of kin: [place] law dictates a PRIORITY LIST for identifying legal decision-maker/legal next of kin in the following order (LNOK): 1st: The patient?s legal guardian, if any 2nd: The patient's spouse (if status is questionable, consult Risk Management) 3rd: The patient?s adult child(louie) (majority, if multiple children) 4th: The patient?s parents 5th: The patient?s adult siblings (majority, if multiple children siblings) Charges/Coding Visit Charges Inpatient E&M: 31258 Subs Hosp L2
--- NOTE | 2023-08-23 22:00 | NURSING ---
Pt states that she doesnt want woke up a lot overnight. Would prefer next vitals to be done with morning meds.
[2023-08-24] VITALS (10 sets, daily range): BP systolic 131–152; BP diastolic 64–72; PULSE 70–88; RESP 16–22; TEMP 36.1–36.8; O2SAT 97–100
[2023-08-24] MEDS: Meropenem 1 GM in 0.9% Normal Saline (100mL MB+) 100 ML IV ×3 (06:07→21:01)
[2023-08-24] MEDS: busPIRone 5 MG Tablet 7.5 MG PO ×3 (06:07→20:50)
[2023-08-24] MEDS: Acetaminophen 500 MG Tablet 1000 MG PO ×3 (06:07→20:51)
[2023-08-24] MEDS: 0.9% Saline Lock 10 ML Syringe IV ×2 (06:09→21:01)
[2023-08-24] MEDS: Ipratropium/Albuterol Sulfate 3 ML AMPUL.NEB INHALATION ×3 (07:27→21:14)
[2023-08-24] MEDS: Losartan Potassium 50 MG Tablet PO (09:13)
[2023-08-24] MEDS: Clopidogrel Bisulfate 75 MG Tablet PO (09:13)
[2023-08-24] MEDS: Furosemide 20 MG Tablet PO ×2 (09:13→16:58)
[2023-08-24] MEDS: Pantoprazole Sodium 40 MG Tablet PO ×2 (09:13→20:53)
[2023-08-24] MEDS: Heparin Injection (Vial) 5,000 UNIT/ML VIAL 5000 UNIT SC ×2 (09:14→20:54)
[2023-08-24] MEDS: Metoprolol Tartrate 25 MG Tablet 12.5 MG PO ×2 (09:14→20:53)
[2023-08-24] MEDS: Potassium Chloride Oral Tablet 20 MEQ PO ×2 (09:14→16:58)
[2023-08-24] MEDS: Isosorbide Mononitrate 60 MG Tablet PO (09:14)
[2023-08-24] MEDS: Insulin Lispro 100 UNIT/ML INSULN.PEN SC ×7 (09:15→20:48)
[2023-08-24] MEDS: Oxymetazoline 0.05% 1 SPRAY SPRAY.BTL NASAL ×2 (09:15→20:50)
[2023-08-24 09:44] LABS: Bedside Glucose 204 mg/dL (74-106)
[2023-08-24 11:44] LABS: Bedside Glucose 243 mg/dL (74-106)
--- NOTE | 2023-08-24 15:22 | CASEMGMT ---
Patient is from [facility]. SW met with patient. Introduced self and role at [facility]. SW confirmed her plan is to return to [facility]. Patient said she will need transportation back. Plan: d/c back to [facility] under intermediate level of care. Rochelle NEUMANN
[2023-08-24] MEDS: Albuterol 2.5 MG/3 ML VIAL.NEB. INHALATION (16:53)
[2023-08-24 16:59] LABS: Bedside Glucose 238 mg/dL (74-106)
--- NOTE | 2023-08-24 17:11 | PCM.PN.HOSP ---
Reason for Visit Reason for Visit: Diagnoses Other specified viral diseases (08/22/23) Chronic respiratory failure with hypoxia (08/22/23) Subjective Subjective Patient was seen and examined today, she still has scattered expiratory wheezes which are mild. Patient's requiring 4 L of oxygen via nasal cannula which is her outpatient oxygen setting. Objective Data Objective Data Vital Signs: Vital Signs Temp Pulse Resp BP Pulse Ox O2 Del Method O2 Flow Rate 98.2 F 71 18 146/64 H 99 Nasal Cannula 4 08/24/23 14:23 08/24/23 14:23 08/24/23 14:23 08/24/23 14:23 08/24/23 14:23 08/24/23 14:23 08/24/23 14:23 FiO2 100 08/24/23 10:00 Oxygen Flow Rate (L/min) 4 Oxygen Delivery Method Nasal Cannula Weight: 99.7 kg Body Mass Index (BMI) 39.6 Intake & Output: Intake and Output for Last 24 Hours 08/22/23 08/23/23 08/24/23 23:59 23:59 23:59 Intake Total 1425 / 1425 360 / 600 480 / 480 Balance 1425 / 1425 360 / 600 480 / 480 Lab / Micro Data 08/23/23 06:00 08/23/23 06:00 Labs: Laboratory Results - last 24 hr 08/23/23 20:09: POC Glucose 266 H 08/24/23 08:47: POC Glucose 204 H 08/24/23 11:25: POC Glucose 243 H 08/24/23 16:38: POC Glucose 238 H Micro: Microbiology 08/22/23 09:17 Blood Culture (Wb) - Anticubital Right Blood Culture - Preliminary No growth in 48 hours. 08/22/23 07:40 Blood Culture (Wb) - Anticubital Right Blood Culture - Preliminary No growth in 48 hours. 08/23/23 18:50 Urine, Clean Catch Legionella Antigen - Final 08/23/23 18:50 Urine, Clean Catch Streptococcus pneumoniae Antigen (M - Final 08/22/23 07:40 Mucosa - Nose SARS-CoV-2, Influenza & RSV (PCR) - Final RSV Rhythm Strip Rhythm Strip: Sinus Rhythm Rate: 78 Ectopy: PVC(s) Physical Exam Narrative alert, oriented x3 and no apparent distress General Appearance: cooperative, well kempt and well developed Orientation / Consciousness: awake, oriented to person, oriented to place and oriented to time HEENT normocephalic, head/scalp atraumatic, hearing grossly normal bilaterally and moist oral mucous membranes Eyes PERRL, EOMs intact bilaterally and conjunctivae normal Neck supple, no JVD, thyroid normal and no carotid bruits General: trachea midline Resp normal respiratory effort, no retractions and no use of accessory muscles Resp Narrative: Scattered expiratory wheezes are noted bilaterally, inspiratory rales are noted at the left lung base Auscultation: Negative for rales, rhonchi or wheezes Cardio regular rate, regular rhythm, S1 normal heart sound, S2 normal heart sound, no murmurs, no rub and no gallops GI normal to inspection, nondistended, normoactive bowel sounds, soft to palpation, non-tender and non-distended Extremity no clubbing, cyanosis or edema Skin no rashes or lesions noted General Skin Exam: no breakdown Neuro oriented x3, CN's II-XII intact bilaterally, no focal motor deficits and no sensory deficits noted Sensorium / Orientation: awake and alert Speech: speech normal Psych affect normal Assessment & Plan Assessment/Plan (1) Chronic hypoxemic respiratory failure: PLAN: Plan 1. Left lower lobe community-acquired pneumonia-patient remains on IV meropenem at this time, she will receive aerosol treatments, I will repeat her chest x-ray tomorrow #2 acute RSV infection-patient will be placed on IV corticosteroids, she will remain on aerosol treatments #3 chronic hypoxic respiratory failure-patient is on 4 L of oxygen at baseline, pulse ox will be monitored #4 asthma with COPD-again due to the patient's RSV infection and the presence of COPD, I have elected to place her on IV corticosteroids #5 type 2 diabetes-blood sugars will be monitored, sliding scale insulin was given as needed Total clinical time spent by myself addressing the patient's medical issues, reviewing all of her data, and collaborating with patient's care team: 35 minutes Capacity Legal Program Review Director Reflex Medical hold order details:: IF a medical hold is selected below, a suggested order for a MEDICAL HOLD will reflex upon signing the document. Next of kin: [place] law dictates a PRIORITY LIST for identifying legal decision-maker/legal next of kin in the following order (LNOK): 1st: The patient?s legal guardian, if any 2nd: The patient's spouse (if status is questionable, consult Risk Management) 3rd: The patient?s adult child(louie) (majority, if multiple children) 4th: The patient?s parents 5th: The patient?s adult siblings (majority, if multiple children siblings) Charges/Coding Visit Charges Inpatient E&M: 15102 Subs Hosp L2
[2023-08-24] MEDS: Insulin Glargine-YFGN 100 UNIT/ML Pen 32 UNIT SC (20:49)
[2023-08-24] MEDS: Citalopram 40 MG TABLET PO (20:51)
[2023-08-24] MEDS: traZODone 50 MG Tablet 25 MG PO (20:52)
[2023-08-24] MEDS: Atorvastatin Calcium 80 MG Tablet PO (20:52)
[2023-08-24 21:21] LABS: Bedside Glucose 209 mg/dL (74-106)
[2023-08-25] VITALS (11 sets, daily range): BP systolic 144–156; BP diastolic 61–73; PULSE 64–90; RESP 18–20; TEMP 36.1–36.8; O2SAT 94–100
[2023-08-25] MEDS: busPIRone 5 MG Tablet 7.5 MG PO ×3 (05:14→21:19)
[2023-08-25] MEDS: Acetaminophen 500 MG Tablet 1000 MG PO ×3 (05:15→21:21)
[2023-08-25] MEDS: Meropenem 1 GM in 0.9% Normal Saline (100mL MB+) 100 ML IV ×3 (05:20→21:09)
[2023-08-25] MEDS: Ipratropium/Albuterol Sulfate 3 ML AMPUL.NEB INHALATION ×4 (07:12→19:46)
--- NOTE | 2023-08-25 08:40 | RAD_ITS ---
INDICATION: Pneumonia EXAMINATION/TECHNIQUE: X-RAY - XR Chest 2 Views COMPARISON: August 23, 2023 FINDINGS: LINES/DEVICES: None. LUNGS: There is persistent blunting of the left costophrenic angle associated with left basilar ill-defined opacities. No pneumothorax. MEDIASTINUM AND CARDIOVASCULAR STRUCTURES: Cardiac silhouette not enlarged. Central airways and mediastinal contour are unremarkable. BONES AND SOFT TISSUES: Unremarkable. RAD/Chest PA and Lateral IMPRESSION: Persistent left costophrenic angle blunting may be secondary to an effusion and/or pleural thickening associated with left basilar atelectasis and/or pneumonia. Electronically Signed: Kimmy Matta MD at 9:05 EST ,
[2023-08-25] MEDS: Insulin Lispro 100 UNIT/ML INSULN.PEN SC ×6 (09:02→21:24)
[2023-08-25] MEDS: 0.9% Saline Lock 10 ML Syringe IV ×3 (09:04→21:14)
[2023-08-25 09:23] LABS: Bedside Glucose 201 mg/dL (74-106)
[2023-08-25] MEDS: Potassium Chloride Oral Tablet 20 MEQ PO ×2 (10:15→16:59)
[2023-08-25] MEDS: Clopidogrel Bisulfate 75 MG Tablet PO (10:15)
[2023-08-25] MEDS: Furosemide 20 MG Tablet PO ×2 (10:15→16:59)
[2023-08-25] MEDS: Losartan Potassium 50 MG Tablet PO (10:15)
[2023-08-25] MEDS: Pantoprazole Sodium 40 MG Tablet PO ×2 (10:15→21:22)
[2023-08-25] MEDS: Metoprolol Tartrate 25 MG Tablet 12.5 MG PO ×2 (10:15→21:20)
[2023-08-25] MEDS: Isosorbide Mononitrate 60 MG Tablet PO (10:15)
[2023-08-25] MEDS: Heparin Injection (Vial) 5,000 UNIT/ML VIAL 5000 UNIT SC ×2 (10:16→21:23)
[2023-08-25] MEDS: Oxymetazoline 0.05% 1 SPRAY SPRAY.BTL NASAL ×2 (10:17→21:17)
[2023-08-25 11:54] LABS: Bedside Glucose 272 mg/dL (74-106)
--- NOTE | 2023-08-25 15:04 | PCM.DC ---
Discharge Instructions Diet Discharge Diet: 1800 Calorie Control Diet Activity Discharge Activity: Return to Normal Activity Weight Bearing Status: Full weight bearing Follow Up Care Test Results: Test results from this visit will be discussed in further detail at your follow-up appointment, if applicable. Discharge Plan Admission Admit Date/Time: 08/22/23 10:21 Primary Reason for Your Visit: CHF Attending Provider: Jorge Lee Primary Care Provider: Billy Madera Discharge Orders/Prescriptions Prescriptions: No Action (DME) Handicap Placard See Rx Instructions .ROUTE .MEDSUPPLY Qty: 1 0RF Rx Instructions: As directed, length of time 3 years citalopram 40 mg tablet 40 mg PO QHS Qty: 90 3RF (DME) cane Device See Rx Instructions .Route Qty: 1 0RF Rx Instructions: As directed pantoprazole 40 mg tablet,delayed release (DR/EC) 40 mg PO BID Qty: 180 2RF therapeutic multivitamin Tablet 1 tab PO DAILY guaifenesin 200 mg/5 mL liquid 400 mg PO Q4H PRN (Reason: cough) dextrose [Glucose Gel] 40 % gel 10 g PO Q15M PRN (Reason: hypoglycemia) Rx Instructions: until symptoms of low blood sugar are controlled buspirone 5 mg tablet 7.5 mg PO TID aluminum-magnesium hydroxide 225-200 mg/5 mL suspension 30 ml PO Q4H PRN (Reason: UPSET STOMACH) budesonide 1 mg/2 mL suspension for nebulization 0.5 mg inhalation BID insulin glargine [Basaglar KwikPen U-100 Insulin] 100 unit/mL (3 mL) insulin pen 32 unit subcut QHS Rx Instructions: daily at bedtime isosorbide mononitrate 60 mg tablet extended release 24 hr 60 mg PO DAILY Qty: 90 3RF nitroglycerin 0.4 mg tablet, sublingual 0.4 mg SUBLINGUAL Q5-15M PRN (Reason: Pain) Qty: 30 0RF atorvastatin 80 mg tablet 80 mg PO QHS clopidogrel 75 mg tablet 75 mg PO DAILY furosemide [Lasix] 20 mg tablet 20 mg PO BID metoprolol tartrate 25 mg tablet 12.5 mg PO BID Rx Instructions: sucralfate [Carafate] 1 gram tablet 1 g PO TID PRN (Reason: acid reflux) Qty: 20 0RF ondansetron HCl 4 mg tablet 4 mg PO Q6H PRN (Reason: nausea and vomiting) Qty: 14 0RF acetaminophen 500 mg Tablet 1,000 mg PO Q8 7 Days Qty: 0 0RF insulin lispro [Humalog KwikPen Insulin] 100 unit/mL Insulin Pen 2 - 11 unit subcut ACHS Qty: 0 0RF Protocol: 4. Sliding Scale Insulin High-Med Dosing Condition: 150-199 mg/dl = 2 units Condition: 200-259 mg/dl = 4 units Condition: 260-324 mg/dl = 6 units Condition: 325-374 mg/dl = 8 units Condition: 375-409 mg/dl = 10 units Condition: 410-449 mg/dl = 11 units Condition: Greater than 449 call physician Protocol Text: - Use for Total Daily Dose of Insulin 56-80 units - Patient who are insulin resistant or septic HIGH MEDIUM DOSING ALGORITHM losartan 25 mg tablet 50 mg PO DAILY 30 Days Qty: 0 0RF prednisone 10 mg tablet 10 mg PO DAILY trazodone 50 mg tablet 25 mg PO QHS potassium chloride 20 mEq tablet extended release 20 meq PO BID bisacodyl [Dulcolax (bisacodyl)] 5 mg tablet,delayed release (DR/EC) 5 mg PO QHS PRN (Reason: constipation) 30 Days Qty: 30 3RF (DME) pen needle, diabetic 32 gauge x 5/32 needle See Rx Instructions .ROUTE .MEDSUPPLY Qty: 50 0RF Rx Instructions: 4x/day (DME) blood-glucose meter [True Metrix Glucose Meter] Misc See Rx Instructions .Route Qty: 1 0RF Rx Instructions: As directed (DME) True Metrix Glucose Test Strip Strip See Rx Instructions .Route Qty: 100 7RF Rx Instructions: tid albuterol sulfate 90 mcg/actuation HFA aerosol inhaler 2 puff INHALATION Q6H PRN (Reason: shortness of breath or wheezing) Qty: 18 3RF ipratropium-albuterol 0.5 mg-3 mg(2.5 mg base)/3 mL solution for nebulization 3 ml INHALATION Q4H PRN PRN (Reason: SOB &/OR WHEEZING) Qty: 180 6RF (DME) FreeStyle Emily 2 Sensor Kit See Rx Instructions .ROUTE .MEDSUPPLY Qty: 2 3RF Rx Instructions: As directed (DME) ShaneStyle Emily 2 [place] Misc See Rx Instructions .ROUTE .MEDSULY Qty: 1 0RF Rx Instructions: As directed Referrals / Follow Up: Billy Madera MD [Primary Care Provider] -
--- NOTE | 2023-08-25 16:36 | CASEMGMT ---
Patient will be discharged back to [facility] today. SUZANNE communicated with [facility] and let them know patient will be discharged today, but she may return late tonight. [facility] said they are okay with this. SUZANNE notified kiln charger and escrow secretary of this information. Plan: d/c back to [facility] under intermediate level of care. Physicians will transport patient. Rochelle NEUMANN
[2023-08-25 17:36] LABS: Bedside Glucose 141 mg/dL (74-106)
--- NOTE | 2023-08-25 19:23 | PN.HOSP_ITS ---
Reason for Visit Reason for Visit: Diagnoses Other specified viral diseases (08/22/23) Chronic respiratory failure with hypoxia (08/22/23) Subjective Subjective Patient was seen and examined today, her chest x-ray today showed a persistent left lower lobe infiltrate or atelectasis, patient still has scattered expiratory wheezes on auscultation, she does not appear short of breath and is ambulating in the room. Patient is currently on 4 L of oxygen. Objective Data Objective Data Vital Signs: Vital Signs Temp Pulse Resp BP Pulse Ox O2 Del Method O2 Flow Rate 97.7 F L 78 20 H 150/68 H 100 Nasal Cannula 4 08/25/23 14:35 08/25/23 16:33 08/25/23 16:33 08/25/23 14:35 08/25/23 14:35 08/25/23 14:35 08/25/23 14:35 FiO2 100 08/24/23 10:00 Oxygen Flow Rate (L/min) 4 Oxygen Delivery Method Nasal Cannula Weight: 99.7 kg Body Mass Index (BMI) 39.6 Intake & Output: Intake and Output for Last 24 Hours 08/23/23 08/24/23 08/25/23 23:59 23:59 23:59 Intake Total 360 / 600 600 / 600 840 / 840 Balance 360 / 600 600 / 600 840 / 840 Lab / Micro Data 08/23/23 06:00 08/23/23 06:00 Labs: Laboratory Results - last 24 hr 08/24/23 20:39: POC Glucose 209 H 08/25/23 09:01: POC Glucose 201 H 08/25/23 11:30: POC Glucose 272 H 08/25/23 16:57: POC Glucose 141 H Micro: Microbiology 08/22/23 09:17 Blood Culture (Wb) - Anticubital Right Blood Culture - Preliminary No growth in 48 hours. 08/22/23 07:40 Blood Culture (Wb) - Anticubital Right Blood Culture - Preliminary No growth in 48 hours. 08/23/23 18:50 Urine, Clean Catch Legionella Antigen - Final 08/23/23 18:50 Urine, Clean Catch Streptococcus pneumoniae Antigen (M - Final 08/22/23 07:40 Mucosa - Nose SARS-CoV-2, Influenza & RSV (PCR) - Final RSV Radiography Diagnostic Testing: Radiology Impression Chest X-Ray 08/25/23 08:40 IMPRESSION: Persistent left costophrenic angle blunting may be secondary to an effusion and/or pleural thickening associated with left basilar atelectasis and/or pneumonia. Electronically Signed: Kimmy Matta MD at 9:05 EST , Rhythm Strip Rhythm Strip: Sinus Rhythm Rate: 78 Ectopy: PVC(s) Physical Exam Narrative alert, oriented x3 and no apparent distress General Appearance: cooperative, well kempt and well developed Orientation / Consciousness: awake, oriented to person, oriented to place and oriented to time HEENT normocephalic, head/scalp atraumatic, hearing grossly normal bilaterally and moist oral mucous membranes Eyes PERRL, EOMs intact bilaterally and conjunctivae normal Neck supple, no JVD, thyroid normal and no carotid bruits General: trachea midline Resp normal respiratory effort, no retractions and no use of accessory muscles Resp Narrative: Scattered expiratory wheezes are noted bilaterally, inspiratory rales are noted at the left lung base Auscultation: Negative for rales, rhonchi or wheezes Cardio regular rate, regular rhythm, S1 normal heart sound, S2 normal heart sound, no murmurs, no rub and no gallops GI normal to inspection, nondistended, normoactive bowel sounds, soft to palpation, non-tender and non-distended Extremity no clubbing, cyanosis or edema Skin no rashes or lesions noted General Skin Exam: no breakdown Neuro oriented x3, CN's II-XII intact bilaterally, no focal motor deficits and no sens ory deficits noted Sensorium / Orientation: awake and alert Speech: speech normal Psych affect normal Assessment & Plan Assessment/Plan (1) Chronic hypoxemic respiratory failure: PLAN: Plan 1. Left lower lobe community-acquired pneumonia-patient remains on IV meropenem at this time, she will receive aerosol treatments #2 acute RSV infection-patient will be placed on IV corticosteroids, she will remain on aerosol treatments #3 chronic hypoxic respiratory failure-patient is on 4 L of oxygen at baseline, pulse ox will be monitored #4 asthma with COPD-again due to the patient's RSV infection and the presence of COPD, I have elected to place her on IV corticosteroids #5 type 2 diabetes-blood sugars will be monitored, sliding scale insulin was given as needed Total clinical time spent by myself addressing the patient's medical issues, reviewing all of her data, and collaborating with patient's care team: 25 minutes Capacity Legal Business Management Professor Reflex Medical hold order details:: IF a medical hold is selected below, a suggested order for a MEDICAL HOLD will reflex upon signing the document. Next of kin: [place] law dictates a PRIORITY LIST for identifying legal decision-maker/legal next of kin in the following order (LNOK): 1st: The patient?s legal guardian, if any 2nd: The patient's spouse (if status is questionable, consult Risk Management) 3rd: The patient?s adult child(louie) (majority, if multiple children) 4th: The patient?s parents 5th: The patient?s adult siblings (majority, if multiple children siblings) Charges/Coding Visit Charges Inpatient E&M: 81167 Subs Hosp L1
[2023-08-25] MEDS: Citalopram 40 MG TABLET PO (21:18)
[2023-08-25] MEDS: traZODone 50 MG Tablet 25 MG PO (21:19)
[2023-08-25] MEDS: Atorvastatin Calcium 80 MG Tablet PO (21:20)
[2023-08-25] MEDS: Insulin Glargine-YFGN 100 UNIT/ML Pen 32 UNIT SC (21:23)
[2023-08-25 22:21] LABS: Bedside Glucose 410 mg/dL (74-106)
[2023-08-26] VITALS (9 sets, daily range): BP systolic 133–153; BP diastolic 59–73; PULSE 56–85; RESP 16–20; TEMP 36.5–36.6; O2SAT 96–99
[2023-08-26] MEDS: Meropenem 1 GM in 0.9% Normal Saline (100mL MB+) 100 ML IV (05:30)
[2023-08-26] MEDS: busPIRone 5 MG Tablet 7.5 MG PO ×2 (05:31→13:29)
[2023-08-26] MEDS: Acetaminophen 500 MG Tablet 1000 MG PO ×2 (05:31→13:30)
[2023-08-26] MEDS: 0.9% Saline Lock 10 ML Syringe IV ×2 (05:32→13:30)
[2023-08-26] MEDS: Ipratropium/Albuterol Sulfate 3 ML AMPUL.NEB INHALATION ×3 (07:05→15:14)
[2023-08-26] MEDS: Pantoprazole Sodium 40 MG Tablet PO (09:01)
[2023-08-26] MEDS: Losartan Potassium 50 MG Tablet PO (09:01)
[2023-08-26] MEDS: Clopidogrel Bisulfate 75 MG Tablet PO (09:01)
[2023-08-26] MEDS: Metoprolol Tartrate 25 MG Tablet 12.5 MG PO (09:01)
[2023-08-26] MEDS: Potassium Chloride Oral Tablet 20 MEQ PO (09:01)
[2023-08-26] MEDS: Isosorbide Mononitrate 60 MG Tablet PO (09:02)
[2023-08-26] MEDS: Furosemide 20 MG Tablet PO (09:02)
[2023-08-26] MEDS: Heparin Injection (Vial) 5,000 UNIT/ML VIAL 5000 UNIT SC (09:03)
[2023-08-26 09:26] LABS: Bedside Glucose 219 mg/dL (74-106)
[2023-08-26] MEDS: Insulin Lispro 100 UNIT/ML INSULN.PEN SC ×4 (11:27→13:28)
--- NOTE | 2023-08-26 11:31 | CASEMGMT ---
Patient does not have a Healthcare Living Will. Patient does have a Healthcare Power of Director [employer] and [facility] sent a copy to . SW placed the copy in patient's chart. Patient's daughter in law Crystal is patient's Healthcare Power of Director [employer]. Rochelle Stevens R[employer]K CONSULTANTRico NEUMANN
--- NOTE | 2023-08-26 11:46 | PCM.TXEXTCAR ---
Diet Diet Order/Speech Therapy: 08/22/23 11:43 Diet: Cardiac: Calorie-Controlled Food consistency:: Regular Liquid Consistency:: Regular/Thin Dietary Modifications:: Consistent Carbohydrate Sodium Restricted How many daily calories?: 1800 calorie Routine Orders/Code Status O2 Liters per Minute: 4 O2 Frequency: Continuous Therapies Weight Bearing: Full weight bearing Physical Therapy: Eval and Treat Occupational Therapy: Eval and Treat Problem/Diagnosis (1) Chronic hypoxemic respiratory failure: Status: Chronic Code(s): J96.11 - Chronic respiratory failure with hypoxia Plan 1. Left lower lobe community-acquired pneumonia-patient remains on IV meropenem at this time, she will receive aerosol treatments #2 acute RSV infection-patient will be placed on IV corticosteroids, she will remain on aerosol treatments #3 chronic hypoxic respiratory failure-patient is on 4 L of oxygen at baseline, pulse ox will be monitored #4 asthma with COPD-again due to the patient's RSV infection and the presence of COPD, I have elected to place her on IV corticosteroids #5 type 2 diabetes-blood sugars will be monitored, sliding scale insulin was given as needed Total clinical time spent by myself addressing the patient's medical issues, reviewing all of her data, and collaborating with patient's care team: 25 minutes Allergies/Procedures Done in Hospital Allergies Iodinated Contrast Media Allergy (Severe, Verified 08/22/23 06:34) Anaphylaxis amoxicillin [Amoxicillin] Allergy (Intermediate, Verified 08/22/23 06:34) Rash hydrocodone Allergy (Intermediate, Verified 08/22/23 06:34) SWELLING gabapentin [From Neurontin] Allergy (Verified 08/22/23 06:34) Shortness of breath levofloxacin [From Levaquin] Allergy (Verified 08/22/23 06:34) Hives is allergic to the red dye in the pill form, states she is fine with the iv form. pseudoephedrine HCl [From Sudafed] Allergy (Verified 08/22/23 06:34) Shortness of breath red dye Allergy (Verified 08/22/23 06:34) Hives prednisone Adverse Reaction (Severe, Verified 08/22/23 06:34) mean mood clonazepam [From Klonopin] Adverse Reaction (Verified 08/22/23 06:34) Depression codeine Adverse Reaction (Verified 08/22/23 06:34) HEADACHE Procedures: None Type of Care/Length of Stay Estimated LOS: More Than 30 Days Type of Care Needed: Intermediate Rehab Potential: None Prognosis: None Additional Orders/Day of Discharge H&P will serve as current which was dated: 08/22/23 Day of Discharge: 08/26/23 Dietary and Speech Recommendations Dietitian Recommendations/Changes: Will continue 1800 calorie/consistent carbohydrate; cardiac/sodium-restricted diet. Fluid restriction as needed per physician given hx of CHF and on lasix. ONS only if PO fails at meals; not indicated at this time. Discharge Plan Admission Admit Date/Time: 08/22/23 10:21 Primary Reason for Your Visit: Pneumonia Attending Provider: Jorge Lee Primary Care Provider: Billy Madera Discharge Orders/Prescriptions Prescriptions: New insulin lispro [Humalog KwikPen Insulin] 100 unit/mL Insulin Pen 5 unit subcut TIDAC Qty: 0 0RF insulin lispro [Humalog KwikPen Insulin] 100 unit/mL Insulin Pen See Protocol subcut ACHS Qty: 0 0RF Protocol: 5. Sliding Scale Insulin High Dosing Condition: 150-209 mg/dl = 3 units Condition: 210-259 mg/dl = 6 units Condition: 260-324 mg/dl = 9 units Condition: 325-374 mg/dl = 12 units Condition: 375-409 mg/dl = 14 units Condition: 410-449 mg/dl = 16 units Condition: Greater than 449 call physician Protocol Text: - Use for Total Daily Dose of Insulin 81-120 units - Very insulin resistant or septic patients HIGH DOSING ALGORITHM cefdinir 300 mg capsule 300 mg PO BID Qty: 14 0RF Continued (DME) Handicap Placard See Rx Instructions .ROUTE .MEDSUPPLY Qty: 1 0RF Rx Instructions: As directed, length of time 3 years citalopram 40 mg tablet 40 mg PO QHS Qty: 90 3RF (DME) cane Device See Rx Instructions .Route Qty: 1 0RF Rx Instructions: As directed pantoprazole 40 mg tablet,delayed release (DR/EC) 40 mg PO BID Qty: 180 2RF therapeutic multivitamin Tablet 1 tab PO DAILY guaifenesin 200 mg/5 mL liquid 400 mg PO Q4H PRN (Reason: cough) dextrose [Glucose Gel] 40 % gel 10 g PO Q15M PRN (Reason: hypoglycemia) Rx Instructions: until symptoms of low blood sugar are controlled buspirone 5 mg tablet 7.5 mg PO TID aluminum-magnesium hydroxide 225-200 mg/5 mL suspension 30 ml PO Q4H PRN (Reason: UPSET STOMACH) budesonide 1 mg/2 mL suspension for nebulization 0.5 mg inhalation BID insulin glargine [Basaglar KwikPen U-100 Insulin] 100 unit/mL (3 mL) insulin pen 32 unit subcut QHS Rx Instructions: daily at bedtime isosorbide mononitrate 60 mg tablet extended release 24 hr 60 mg PO DAILY Qty: 90 3RF nitroglycerin 0.4 mg tablet, sublingual 0.4 mg SUBLINGUAL Q5-15M PRN (Reason: Pain) Qty: 30 0RF atorvastatin 80 mg tablet 80 mg PO QHS clopidogrel 75 mg tablet 75 mg PO DAILY furosemide [Lasix] 20 mg tablet 20 mg PO BID metoprolol tartrate 25 mg tablet 12.5 mg PO BID Rx Instructions: sucralfate [Carafate] 1 gram tablet 1 g PO TID PRN (Reason: acid reflux) Qty: 20 0RF ondansetron HCl 4 mg tablet 4 mg PO Q6H PRN (Reason: nausea and vomiting) Qty: 14 0RF acetaminophen 500 mg Tablet 1,000 mg PO Q8 7 Days Qty: 0 0RF insulin lispro [Humalog KwikPen Insulin] 100 unit/mL Insulin Pen 2 - 11 unit subcut ACHS Qty: 0 0RF Protocol: 4. Sliding Scale Insulin High-Med Dosing Condition: 150-199 mg/dl = 2 units Condition: 200-259 mg/dl = 4 units Condition: 260-324 mg/dl = 6 units Condition: 325-374 mg/dl = 8 units Condition: 375-409 mg/dl = 10 units Condition: 410-449 mg/dl = 11 units Condition: Greater than 449 call physician Protocol Text: - Use for Total Daily Dose of Insulin 56-80 units - Patient who are insulin resistant or septic HIGH MEDIUM DOSING ALGORITHM losartan 25 mg tablet 50 mg PO DAILY 30 Days Qty: 0 0RF prednisone 10 mg tablet 10 mg PO DAILY trazodone 50 mg tablet 25 mg PO QHS potassium chloride 20 mEq tablet extended release 20 meq PO BID bisacodyl [Dulcolax (bisacodyl)] 5 mg tablet,delayed release (DR/EC) 5 mg PO QHS PRN (Reason: constipation) 30 Days Qty: 30 3RF (DME) pen needle, diabetic 32 gauge x / needle See Rx Instructions .ROUTE .MEDSUPPLY Qty: 50 0RF Rx Instructions: 4x/day (DME) blood-glucose meter [True Metrix Glucose Meter] Misc See Rx Instructions .Route Qty: 1 0RF Rx Instructions: As directed (DME) True Metrix Glucose Test Strip Strip See Rx Instructions .Route Qty: 100 7RF Rx Instructions: tid albuterol sulfate 90 mcg/actuation HFA aerosol inhaler 2 puff INHALATION Q6H PRN (Reason: shortness of breath or wheezing) Qty: 18 3RF ipratropium-albuterol 0.5 mg-3 mg(2.5 mg base)/3 mL solution for nebulization 3 ml INHALATION Q4H PRN PRN (Reason: SOB &/OR WHEEZING) Qty: 180 6RF (DME) FreeStyle Emily 2 Sensor Kit See Rx Instructions .ROUTE .MEDSUPPLY Qty: 2 3RF Rx Instructions: As directed (DME) FreeStyle Emily 2 [place] Misc See Rx Instructions .ROUTE .MEDSUPPLY Qty: 1 0RF Rx Instructions: As directed Referrals / Follow Up: Billy Madera MD [Primary Care Provider] - Disposition Disposition (needs filled in before D/C Order can be placed): Long-Term Facility
--- NOTE | 2023-08-26 11:57 | PCM.DC.SUM ---
Providers Date of Admission: 08/22/23 Date of Discharge: 08/26/23 Primary Care Physician: Dr. Billy Madera MD Reason For Visit: LEFT LOWER LOBE PNEUMONIA, RSV INFECTION Diagnosis Discharge Diagnosis (1) Chronic hypoxemic respiratory failure: Status: Chronic Code(s): J96.11 - Chronic respiratory failure with hypoxia Plan 1. Left lower lobe community-acquired pneumonia-patient remains on IV meropenem at this time, she will receive aerosol treatments #2 acute RSV infection-patient will be placed on IV corticosteroids, she will remain on aerosol treatments #3 chronic hypoxic respiratory failure-patient is on 4 L of oxygen at baseline, pulse ox will be monitored #4 asthma with COPD-again due to the patient's RSV infection and the presence of COPD, I have elected to place her on IV corticosteroids #5 type 2 diabetes-blood sugars will be monitored, sliding scale insulin was given as needed Total clinical time spent by myself addressing the patient's medical issues, reviewing all of her data, and collaborating with patient's care team: 25 minutes Medications at Discharge Home Medications Handicap Placard #1 ea 12/12/20 bisacodyl 5 mg tablet,delayed release (Dulcolax (bisacodyl)) 5 mg PO QHS PRN constipation 30 days #30 tabs 11/13/21 pen needle, diabetic 32 gauge x #50 ea 02/11/22 blood sugar diagnostic (True Metrix Glucose Test Strip) #100 ea 09/11/22 blood-glucose meter (True Metrix Glucose Meter) #1 ea 09/11/22 albuterol sulfate 90 mcg/actuation aerosol inhaler 2 puff inhalation Q6H PRN shortness of breath or wheezing #18 grams 11/06/22 ipratropium 0.5 mg-albuterol 3 mg (2.5 mg base)/3 mL nebulization soln 3 ml inhalation Q4H PRN PRN SOB &/OR WHEEZING #180 mL 11/10/22 cane #1 ea 11/16/22 citalopram 40 mg tablet 40 mg PO QHS depression #90 tabs 11/16/22 isosorbide mononitrate 60 mg tablet,extended release 24 hr 60 mg PO DAILY BP #90 tabs 12/26/22 nitroglycerin 0.4 mg sublingual tablet 0.4 mg sublingual Q5-15M PRN Pain #30 tabs 12/26/22 flash glucose sensor (FreeStyle Emily 2 Sensor kit) #2 ea 01/06/23 atorvastatin 80 mg tablet 80 mg PO QHS cholesterol 01/26/23 clopidogrel 75 mg tablet 75 mg PO DAILY blood thinner 01/26/23 furosemide 20 mg tablet (Lasix) 20 mg PO BID diuretic 01/26/23 metoprolol tartrate 25 mg tablet 12.5 mg PO BID blood pressure 01/26/23 flash glucose scanning reader (CallidusCloudStyle Emily 2 [place]) #1 ea 03/23/23 ondansetron HCl 4 mg tablet 4 mg PO Q6H PRN nausea and vomiting #14 tabs 04/16/23 sucralfate 1 gram tablet (Carafate) 1 g PO TID PRN acid reflux #20 tabs 04/16/23 pantoprazole 40 mg tablet,delayed release 40 mg PO BID stomach #180 tabs 05/20/23 acetaminophen 500 mg tablet 1,000 mg (2 x 500 mg) PO Q8 pain 7 days #0 tabs 06/04/23 insulin lispro 100 unit/mL subcutaneous pen (Humalog KwikPen (U-100) Insulin) 2 - 11 unit subcut ACHS diabetes #0 mL 06/04/23 losartan 25 mg tablet 50 mg (2 x 25 mg) PO DAILY blood pressure 30 days #0 tabs 06/04/23 aluminum-magnesium hydroxide 225 mg-200 mg/5 mL oral suspension 30 ml PO Q4H PRN UPSET STOMACH 07/23/23 buspirone 5 mg tablet 7.5 mg PO TID mental health 07/23/23 dextrose 40 % oral gel (Glucose Gel) 10 g PO Q15M PRN hypoglycemia 07/23/23 guaifenesin 200 mg/5 mL oral liquid 400 mg PO Q4H PRN cough 07/23/23 therapeutic multivitamin 1 tab PO DAILY vitamin 07/23/23 budesonide 1 mg/2 mL suspension for nebulization 0.5 mg inhalation BID breathing 08/13/23 insulin glargine 100 unit/mL (3 mL) subcutaneous pen (Basaglar KwikPen U-100 Insulin) 32 unit subcut QHS diabetic managment 08/13/23 potassium chloride 20 mEq tablet,extended release 20 meq PO BID supplement 08/22/23 prednisone 10 mg tablet 10 mg PO DAILY inflammation 08/22/23 trazodone 50 mg tablet 25 mg PO QHS sleep 08/22/23 cefdinir 300 mg capsule 300 mg PO BID #14 caps 08/26/23 insulin lispro 100 unit/mL subcutaneous pen (Humalog KwikPen (U-100) Insulin) 5 unit (0.05 mL) subcut TIDAC #0 mL 08/26/23 insulin lispro 100 unit/mL subcutaneous pen (Humalog KwikPen (U-100) Insulin) See Protocol subcut ACHS #0 mL 08/26/23 Hospital Course Operations None Procedures None Summary of Care Provided Minutes Spent on Discharge: 32 Hospital Course: This 73-year-old white female was seen in the emergency room at [facility] after being transported from a local extended care facility with complaints of shortness of breath, patient has a history of COPD and was on 4 L of oxygen at home. Patient had been placed on prednisone as an outpatient for the past 8 days. She was also given Zithromax. Labs were obtained which showed a slightly elevated white blood cell count, sodium was 128, glucose was 205 and beta natruretic peptide was 102. Chest x-ray shows a dense consolidation of the left lower lung felt to be secondary to pneumonia. Her antigen test for RSV was positive, patient's O2 requirement was 4 L, patient was admitted to PCU, she was placed on IV antibiotics, aerosol treatments, IV corticosteroids, and monitored. Patient's respiratory status improved during her hospitalization. On 08/26/2023, patient was seen and examined: On examination she appeared in good health and spirits, she does not appear to be in any distress. Vital signs as documented. Skin warm and dry and without overt rashes. Neck without JVD, thyroid appears normal, trachea is midline, neck is supple. Lungs -Faint expiratory wheezes were scattered bilaterally with decreased breath sounds bilaterally. Heart exam notable for regular rhythm, normal sounds and absence of murmurs, rubs or gallops. Abdomen unremarkable and without evidence of organomegaly, masses, or abdominal aortic enlargement, bowel sounds are present in all 4 quadrants, no abdominal tenderness was noted. Extremities nonedematous, no cyanosis was noted, no clubbing was noted. Neuro: Cranial nerves II through XII are grossly intact, no focal motor deficits were noted, sensation to light touch and pinprick is intact, motor exam 5/5 throughout. Psych: Patient is alert and oriented x3, she does not appear anxious or depressed, she does not appear agitated. On 08/26/2023, patient was discharged to her extended care facility in stable condition Weight / BMI Weight Weight: 99.7 kg Body Mass Index (BMI) 39.6 ABG / Lab / Microbiology Data 08/23/23 06:00 08/23/23 06:00 Laboratory: Laboratory Results - last 24 hr 08/25/23 16:57: POC Glucose 141 H 08/25/23 21:06: POC Glucose 410 H 08/26/23 08:46: POC Glucose 219 H Microbiology: Microbiology 08/22/23 09:17 Blood Culture (Wb) - Anticubital Right Blood Culture - Preliminary No growth in 48 hours. 08/22/23 07:40 Blood Culture (Wb) - Anticubital Right Blood Culture - Preliminary No growth in 48 hours. 08/23/23 18:50 Urine, Clean Catch Legionella Antigen - Final 08/23/23 18:50 Urine, Clean Catch Streptococcus pneumoniae Antigen (M - Final 08/22/23 07:40 Mucosa - Nose SARS-CoV-2, Influenza & RSV (PCR) - Final RSV Meaningful Use Info Meaningful Use Diagnoses (Choose all that apply): None applicable Discharge Plan Admission Admit Date/Time: 08/22/23 10:21 Primary Reason for Your Visit: Pneumonia Attending Provider: Jorge Lee Primary Care Provider: Billy Madera Discharge Orders/Prescriptions Prescriptions: New insulin lispro [Humalog KwikPen Insulin] 100 unit/mL Insulin Pen 5 unit subcut TIDAC Qty: 0 0RF insulin lispro [Humalog KwikPen Insulin] 100 unit/mL Insulin Pen See Protocol subcut ACHS Qty: 0 0RF Protocol: 5. Sliding Scale Insulin High Dosing Condition: 150-209 mg/dl = 3 units Condition: 210-259 mg/dl = 6 units Condition: 260-324 mg/dl = 9 units Condition: 325-374 mg/dl = 12 units Condition: 375-409 mg/dl = 14 units Condition: 410-449 mg/dl = 16 units Condition: Greater than 449 call physician Protocol Text: - Use for Total Daily Dose of Insulin 81-120 units - Very insulin resistant or septic patients HIGH DOSING ALGORITHM cefdinir 300 mg capsule 300 mg PO BID Qty: 14 0RF Continued (DME) Handicap Placard See Rx Instructions .ROUTE .MEDSUPPLY Qty: 1 0RF Rx Instructions: As directed, length of time 3 years citalopram 40 mg tablet 40 mg PO QHS Qty: 90 3RF (DME) cane Device See Rx Instructions .Route Qty: 1 0RF Rx Instructions: As directed pantoprazole 40 mg tablet,delayed release (DR/EC) 40 mg PO BID Qty: 180 2RF therapeutic multivitamin Tablet 1 tab PO DAILY guaifenesin 200 mg/5 mL liquid 400 mg PO Q4H PRN (Reason: cough) dextrose [Glucose Gel] 40 % gel 10 g PO Q15M PRN (Reason: hypoglycemia) Rx Instructions: until symptoms of low blood sugar are controlled buspirone 5 mg tablet 7.5 mg PO TID aluminum-magnesium hydroxide 225-200 mg/5 mL suspension 30 ml PO Q4H PRN (Reason: UPSET STOMACH) budesonide 1 mg/2 mL suspension for nebulization 0.5 mg inhalation BID insulin glargine [Basaglar KwikPen U-100 Insulin] 100 unit/mL (3 mL) insulin pen 32 unit subcut QHS Rx Instructions: daily at bedtime isosorbide mononitrate 60 mg tablet extended release 24 hr 60 mg PO DAILY Qty: 90 3RF nitroglycerin 0.4 mg tablet, sublingual 0.4 mg SUBLINGUAL Q5-15M PRN (Reason: Pain) Qty: 30 0RF atorvastatin 80 mg tablet 80 mg PO QHS clopidogrel 75 mg tablet 75 mg PO DAILY furosemide [Lasix] 20 mg tablet 20 mg PO BID metoprolol tartrate 25 mg tablet 12.5 mg PO BID Rx Instructions: sucralfate [Carafate] 1 gram tablet 1 g PO TID PRN (Reason: acid reflux) Qty: 20 0RF ondansetron HCl 4 mg tablet 4 mg PO Q6H PRN (Reason: nausea and vomiting) Qty: 14 0RF acetaminophen 500 mg Tablet 1,000 mg PO Q8 7 Days Qty: 0 0RF insulin lispro [Humalog KwikPen Insulin] 100 unit/mL Insulin Pen 2 - 11 unit subcut ACHS Qty: 0 0RF Protocol: 4. Sliding Scale Insulin High-Med Dosing Condition: 150-199 mg/dl = 2 units Condition: 200-259 mg/dl = 4 units Condition: 260-324 mg/dl = 6 units Condition: 325-374 mg/dl = 8 units Condition: 375-409 mg/dl = 10 units Condition: 410-449 mg/dl = 11 units Condition: Greater than 449 call physician Protocol Text: - Use for Total Daily Dose of Insulin 56-80 units - Patient who are insulin resistant or septic HIGH MEDIUM DOSING ALGORITHM losartan 25 mg tablet 50 mg PO DAILY 30 Days Qty: 0 0RF prednisone 10 mg tablet 10 mg PO DAILY trazodone 50 mg tablet 25 mg PO QHS potassium chloride 20 mEq tablet extended release 20 meq PO BID bisacodyl [Dulcolax (bisacodyl)] 5 mg tablet,delayed release (DR/EC) 5 mg PO QHS PRN (Reason: constipation) 30 Days Qty: 30 3RF (DME) pen needle, diabetic 32 gauge x 5/32 needle See Rx Instructions .ROUTE .MEDSUPPLY Qty: 50 0RF Rx Instructions: 4x/day (DME) blood-glucose meter [True Metrix Glucose Meter] Misc See Rx Instructions .Route Qty: 1 0RF Rx Instructions: As directed (DME) True Metrix Glucose Test Strip Strip See Rx Instructions .Route Qty: 100 7RF Rx Instructions: tid albuterol sulfate 90 mcg/actuation HFA aerosol inhaler 2 puff INHALATION Q6H PRN (Reason: shortness of breath or wheezing) Qty: 18 3RF ipratropium-albuterol 0.5 mg-3 mg(2.5 mg base)/3 mL solution for nebulization 3 ml INHALATION Q4H PRN PRN (Reason: SOB &/OR WHEEZING) Qty: 180 6RF (DME) FreeStyle Emily 2 Sensor Kit See Rx Instructions .ROUTE .MEDSUPPLY Qty: 2 3RF Rx Instructions: As directed (DME) FreeStyle Emily 2 [place] Misc See Rx Instructions .ROUTE .MEDSUPPLY Qty: 1 0RF Rx Instructions: As directed Referrals / Follow Up: Billy Madera MD [Primary Care Provider] - Disposition Disposition (needs filled in before D/C Order can be placed): Nursing Home Facility Charges/Coding Visit Charges Inpatient E&M: 62939 Disch Hosp >30min
[2023-08-26 13:58] LABS: Bedside Glucose 338 mg/dL (74-106)
--- NOTE | 2023-08-26 14:32 | NURSING ---
Report called to nurse Sara for pt to be d/c back to [address]
--- NOTE | 2023-08-26 16:57 | CASEMGMT ---
Discharge Planning Discharge orders, signed med list, and transport time sent to [facility] via [facility]. Physicians will transport patient by [facility] at 3p. Nursing, SW, patient, and patients son updated. Deborah Mojica, Discharge Planning Asst.
== END 2023-08-26 16:18 | disposition skilled nursing facility (03) | DRG 190 ==
LOC: ED 10:24 → PCU 11:01
PROVIDERS: Admitting Provider Internal Medicine; Emergency Provider Emergency Medicine; PCP Internal Medicine; Visit Provider Internal Medicine
DX: J44.0 Chronic obstructive pulmonary disease with (acute) lower respiratory infection (principal); J18.9 Pneumonia, unspecified organism; J96.11 Chronic respiratory failure with hypoxia; E87.1 Hypo-osmolality and hyponatremia; I50.32 Chronic diastolic (congestive) heart failure; B97.4 Respiratory syncytial virus as the cause of diseases classified elsewhere; I11.0 Hypertensive heart disease with heart failure; J44.1 Chronic obstructive pulmonary disease with (acute) exacerbation; E11.9 Type 2 diabetes mellitus without complications; Z79.4 Long term (current) use of insulin; E78.5 Hyperlipidemia, unspecified; I25.10 Atherosclerotic heart disease of native coronary artery without angina pectoris; K21.9 Gastro-esophageal reflux disease without esophagitis; G89.29 Other chronic pain; Z79.02 Long term (current) use of antithrombotics/antiplatelets; Z99.81 Dependence on supplemental oxygen; Z79.899 Other long term (current) drug therapy; Z95.5 Presence of coronary angioplasty implant and graft; Z87.891 Personal history of nicotine dependence
CPT/HCPCS: 36415; 71045; 71046; 80048; 82962; 83605; 83880; 84484; 85025; 87040; 87449; 87631; 93005; 94640; 97161; 97165; 99252; 99285; J2185; J7030; A4216; G0463

== ENCOUNTER → 2023-09-08 | Outpatient (REF) | payer MEDICARE, SELFPAY ==
[2021-11-03 12:08] VITALS: BMI 34.9
--- OUTSIDE RECORDS SUMMARY | 2023-09-08 05:15 | XMS RPT_ITS | CCD ---
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 Name Role Phone Jerry MELVIN, Bolivar Rosado Unavailable [phone] Yuliet Aguilar Unavailable Unavailable Mike Richard Primary Care Provider Unavailable Primary Care Provider Billy Nowak Primary Care Provider Allergies Allergy Classification Reported Allergen(s) Allergy Type Date of Onset Reaction(s) Facility (6 sources) amoxicillin drug allergy 12-20-19 09 Hives [facility] Work Phone: (3 sources) cephalexin drug allergy 06-01-20 16 GI upset [facility] Work Phone: (3 sources) Cephalosporins (Antibiotic) drug allergy 06-01-20 16 trouble breathing and lip numbing [facility] Work Phone: (3 sources) ciprofloxacin drug allergy 06-01-20 16 edema [facility] Work Phone: (3 sources) codeine drug allergy 06-01-20 16 [facility] Work Phone: (3 sources) Corticosteroids drug allergy 06-01-20 16 anxious [facility] Work Phone: (3 sources) gabapentin drug allergy 06-01-20 16 dyspnea [facility] Work Phone: (3 sources) levoFLOXacin drug allergy 06-01-20 16 hives [facility] Work Phone: (3 sources) meperidine drug allergy 06-01-20 16 [facility] Work Phone: (3 sources) nortriptyline drug allergy 06-01-20 16 headache [facility] Work Phone: [phone] (3 sources) sertraline drug allergy 06-01-20 16 felt poorly [facility] Work Phone: [phone] (3 sources) venlafaxine drug allergy 06-01-20 16 anxiety increase [facility] Work Phone: (1 source) Codeine Drug Allergy 04-14-20 16 Other: See Comments [facility] (1 source) Contrast media Drug Allergy 04-14-20 16 [facility] (1 source) levoFLOXacin Drug Allergy 04-14-20 16 [facility] (1 source) Omeprazole Drug Allergy 04-14-20 16 Shortness of Breath [facility] (2 sources) Pseudoephedrine Drug Allergy 04-14-20 16 Rash [facility] (1 source) raNITIdine Drug Allergy 04-14-20 16 [facility] (2 sources) Cephalexin Drug Allergy 06-01-20 16 Other (See Comments) [facility] [place] [place] ([facility] sources) Iodides Propensity to adverse reactions to drug 07-14-20 19 Hives [place] (1 source) Pseudoephedrine Drug Allergy 12-20-19 09 [facility] Work Phone: (1 source) Morphine And Related Propensity to adverse reactions to drug 12-20-19 [facility] Work Phone: Medications Current Medications Medication Drug [...] times a day as needed HYDROCODONE-ACETAMI LUZMAHEN [id number] July 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 Work Phone: 03-18-2017 13:10-0400 BP Systolic 141 mm[Hg] [facility] Work Phone: 03-18-2017 13:10-0400 Height 157.48 cm [facility] Work Phone: 03-18-2017 13:10-0400 Pulse (Heart Rate) 73 /min [facility] Work Phone: 03-18-2017 13:10-0400 Respiratory Rate 18 /min [facility] Work Phone: 03-18-2017 13:10-0400 Weight 89.18 kg [facility] Work Phone: 10-19-2016 11:30-0400 Body Temperature 98.01 [degF] [facility] [employer] Work Phone: 10-19-2016 11:30-0400 BSA (Body Surface Area) 1.9 m2 [facility] Work Phone: 10-19-2016 11:30-0400 Height 157.48 cm [facility] Work Phone: 10-19-2016 11:30-0400 Weight 88.99 kg [facility] Work Phone: Encounters Encounter Date Encounter Type Care Provider Facility Start: 10-17-2020 End: 10-17-2020 Subsequent hospital visit by physician Korey Barry Work Phone: [facility] Rad Procedures Date Procedure Procedure Detail [...] - Td) DTaP/Tdap/Td vaccine (3 - Td) [place], [place] Start: 09-26-2020 End: 09-26-2020 Nurse Only [facility] [place] Start: 08-18-2020 Annual Wellness Visit (AWV) Annual Wellness Visit (AWV) [facility] Work Phone: Start: 04-09-2020 Influenza vaccination INFLUENZA (#1) [facility] Start: 03-26-2017 End: 03-26-2017 Appointment Appointment [facility] [employer] Work Phone: Start: 03-18-2017 End: 03-22-2017 Upper GI endoscopy, biopsy Upper gastrointestinal endoscopy; with biopsy [facility] [employer] Work Phone: Start: 10-28-2016 End: 03-26-2017 Upper GI endoscopy, biopsy Upper gastrointestinal endoscopy; with biopsy [facility] [employer] Work Phone: Start: 10-19-2016 End: 03-26-2017 Upper GI endoscopy, biopsy Upper gastrointestinal endoscopy; with biopsy [facility] [employer] Work Phone: Start: 10-09-2016 End: 10-09-2016 Endocrinology Referral [facility] Work Phone: Start: 10-08-2016 End: 03-26-2017 Follow Up after Imaging/labs Follow Up after Imaging/labs [facility] [employer] Work Phone: Start: 10-08-2016 End: 10-09-2016 Gastric emptying study NM Gastric Emptying Study [facility] [employer] Work Phone: Start: 10-08-2016 End: 10-08-2016 HbA1c Hemoglobin A1C [facility] [employer] Work Phone: Start: 10-08-2016 End: 10-09-2016 X-ray exam, upper gi tract Upper GI & Small Bowel [facility] [employer] Work Phone: Start: 09-24-2016 End: 09-24-2016 CSM C[facility] [employer] Work Phone: Start: 09-24-2016 End: 09-24-2016 Follow Up Appt 1 month Follow Up Appt 1 month [employer] Work Phone: Start: 09-24-2016 End: 09-24-2016 Pulmonary Function Test - complete Pulmonary Function Test - complete [facility] [employer] Work Phone: Start: 07-31-2016 End: 09-18-2016 Ct thorax w/o dye CT Chest without contrast [facility] [employer] Work Phone: Start: 07-31-2016 End: 07-31-2016 Follow Up Appt 1 month Follow Up Appt 1 month [facility] Work Phone: Start: 07-31-2016 End: 07-31-2016 Pulmonary Function Test - complete Pulmonary Function Test - complete [facility] Work Phone: Start: 07-31-2016 End: 09-18-2016 Pulmonary stress test/simple Pulmonary stress testing; simple (eg, 6-minute walk) [facility] [employer] Work Phone: Start: 07-31-2016 End: 09-18-2016 Tte w/doppler, complete Echo Complete with Color Flow [facility] Work Phone: Start: 2016 ADVANCE DIRECTIVE DISCUSSION ADVANCE DIRECTIVE DISCUSSION [facility] Start: 2016 BONE DENSITY BONE DENSITY [facility] Start: 2016 Pneumococcal 65+ years Vaccine (2 of 2 - PPSV23) Pneumococcal 65+ years Vaccine (2 of 2 - PPSV23) [place] Start: 2016 PNEUMOVAX AGE 65 AND OVER WITH 5YR LOOKBACK (#1) PNEUMOVAX AGE 65 AND OVER WITH 5YR LOOKBACK (#1) [facility] Start: 2006 Screening for osteoporosis DEXA (modify frequency per FRAX score) [place] Start: 2001 Screening for malignant neoplasm of breast Breast cancer screen [place] Start: 2001 Screening for malignant neoplasm of colon Colon cancer screen colonoscopy [place] Start: 2001 Shingles Vaccine (1 of 2) Shingles Vaccine (1 of 2) [place] Start: 2001 SHINGRIX VACCINE (1 of 2) SHINGRIX VACCINE (1 of 2) [facility] Start: 2001 Tuberculosis screening COLORECTAL CANCER SCREENING,SEE MODIFIER [facility] Start: 1996 DIABETES SCREEN DIABETES SCREEN [facility] Start: 1996 LIPID SCREEN LIPID SCREEN [facility] Start: 1991 Diabetes screen Diabetes screen [place], [place] Start: 1991 Lipid panel Lipid screen [place] Start: 1991 Mammography MAMMOGRAM [facility] Start: 1970 Urine microalbumin profile DTAP,TDAP,TD (1 - Tdap) [facility] Start: 1969 HEPATITIS C SCREENING HEPATITIS C SCREENING [facility] Start: 1967 COVID-19 Vaccine (1 of 2) COVID-19 Vaccine (1 of 2) [facility] Work Phone: Start: 1951 Creatinine measurement Creatinine monitoring [place], [place] Start: 1951 Hepatitis C screening Hepatitis C screen [place], [place] Start: 1951 Potassium monitoring Potassium monitoring [place], [place] Payers Date Payer Category Payer Medicare BCBS MEDICARE AN THEM MEDIBLUE ESSENTIAL/PLUS [id number] 2020-Present [address] [address] [place] [address] [id number] 2004 Unknown MMO ZZZMMO SUPER MED PLUS BH [id number] 2004-2010 PPO [id number] Social History Date Type Detail Facility Tobacco smoking stat [facility] Unknown if ever smoked [facility] Sex Assigned At Not on file [facility] Start: 08-15-2020 End: 10-17-2020 Tobacco smoking status NHIS Never smoker [place] Exposure to SARS-CoV -2 (event) Not sure [place] Start: 10-17-2020 Tobacco use and exposure Never used [employer] Work Phone: Medical Equipment Procedure Code Equipment Code Equipment Original Text Equipment Identifier Dates use 1 TEST STRIP to TEST BLOOD SUGAR 4 TIMES A DAY [id number] Start: 07-24-2020 use 1 LANCET to TEST BLOOD SUGAR four times a day [id number] Start: 07-24-2020 use 1 PEN NEEDLE to inject MEDICATION subcutaneously four times a day [id number] Start: 10-07-2020 use as directed [id number] Start: 07-25-2020 Advance Directives No Advanced Directives Records FoundDocuments on File Type Date Recorded 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 [facility]. provides no warranty or guarantee of the accuracy or completeness of information in this document.
[2023-09-08 07:57] LABS: Hematocrit 33.1 % (37-47); Hemoglobin 10.6 g/dL (12.0-15.0); Mean Corpuscular Hgb 28.4 pg (27.0-32.0); Mean Corpuscular Volume 88.7 fL (81-99); Platelet Count 270 K/mm3 (150-450); RBC Distribution Width CV 13.3 % (11.6-14.6); RBC Distribution Width SD 43.1 fl (35.1-43.9); Red Blood Count 3.73 M/mm3 (4.2-5.4); White Blood Count 8.9 K/mm3 (4.4-11.0)
[2023-09-08 08:16] LABS: AST(SGOT) 9 U/L (15-37); Alanine Aminotransfer ALT/SGPT 26 U/L (13-56); Alkaline Phosphatase 106 U/L (45-117); Anion Gap 6 (5-15); BUN 11 mg/dL (7-18); Calcium,Total 9.1 mg/dL (8.5-10.1); Chloride 98 mmol/L (98-107); Creatinine, Serum 0.61 mg/dL (0.55-1.02); EST Glomerular Filtration Rate 102 mL/min (>60); Est Glom Filt Rate - Afr Amer 124 mL/min (>60); Globulin 3.1 g/dL (2.2-4.2); Glucose 139 mg/dL (74-106); Potassium 3.8 mmol/L (3.5-5.1); Protein, Total 6.1 g/dL (6.4-8.2); Sodium Level 134 mmol/L (136-145)
[2023-09-08 09:09] LABS: Hemoglobin A1c 7.7 % (3.8-5.6)
== END ==
LOC: OLS.SW 05:00
PROVIDERS: PCP Internal Medicine; Visit Provider Family Medicine
DX: J44.9 Chronic obstructive pulmonary disease, unspecified (principal); E11.9 Type 2 diabetes mellitus without complications; I10 Essential (primary) hypertension
CPT/HCPCS: 36415; 80053; 83036; 85027

== ENCOUNTER → 2023-09-29 05:00 | Outpatient (REF) | payer MEDICARE, SELFPAY ==
[2021-11-03 12:08] VITALS: BMI 34.9
--- OUTSIDE RECORDS SUMMARY | 2023-09-29 04:11 | XMS RPT_ITS | CCD ---
Author Name Unknown Address [address] [place] [address] Organization [facility] Care Team Providers Care Roll Carrier Name Role Phone Jerry MELVIN, Bolivar Rosado Unavailable Yuliet Aguilar Unavailable Unavailable Mike Richard Primary Care Provider Unavailable Primary Care Provider Billy Nowak Primary Care Provider Allergies Allergy Classification Reported Allergen(s) Allergy Type Date of Onset Reaction(s) Facility (6 sources) amoxicillin drug allergy 12-20-19 09 Hives [facility] Work Phone: (3 sources) cephalexin drug allergy 06-01-20 16 GI upset [facility] Work Phone: (3 sources) Cephalosporins (Antibiotic) drug allergy 06-01-20 16 trouble breathing and lip numbing [facility] Work Phone: (3 sources) ciprofloxacin drug allergy 06-01-20 16 edema [facility] Work Phone: (3 sources) codeine drug allergy 06-01-20 16 [facility] Work Phone: (3 sources) Corticosteroids drug allergy 06-01-20 16 anxious [facility] Work Phone: (3 sources) gabapentin drug allergy 06-01-20 16 dyspnea [facility] Work Phone: (3 sources) levoFLOXacin drug allergy 06-01-20 16 hives [facility] Work Phone: (3 sources) meperidine drug allergy 06-01-20 16 [facility] Work Phone: (3 sources) nortriptyline drug allergy 06-01-20 16 headache [facility] Work Phone: [phone] (3 sources) sertraline drug allergy 06-01-20 16 felt poorly [facility] Work Phone: [phone] (3 sources) venlafaxine drug allergy 06-01-20 16 anxiety increase [facility] Work Phone: (1 source) Codeine Drug Allergy 04-14-20 16 Other: See Comments [facility] (1 source) Contrast media Drug Allergy 04-14-20 16 [facility] (1 source) levoFLOXacin Drug Allergy 04-14-20 16 [facility] (1 source) Omeprazole Drug Allergy 04-14-20 16 Shortness of Breath [facility] (2 sources) Pseudoephedrine Drug Allergy 04-14-20 16 Rash [facility] (1 source) raNITIdine Drug Allergy 04-14-20 16 [facility] (2 sources) Cephalexin Drug Allergy 06-01-20 16 Other (See Comments) [place] Iodides Propensity to adverse reactions to drug 07-14-20 19 Hives [employer] [place] (1 source) Pseudoephedrine Drug Allergy 12-20-19 09 [facility] Work Phone: (1 source) Morphine And Related Propensity to adverse reactions to drug 12-20-19 [facility] Work Phone: Medications Current Medications Medication Drug [...] times a day as needed HYDROCODONE-ACETAMI LUZMAHEN [id number] July 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 Problems Problem Classification Problem Date [...] (Body Mass Index) 35.95 kg/m2 Yuliet Aguilar [facility] Work Phone: 03-18-2017 [id number] Body Temperature 98.6 [degF] Yuliet Aguilar [facility] Work Phone: 03-18-2017 13:10-0400 BP Diastolic 85 mm[Hg] Yuliet [facility] Work Phone: 03-18-2017 13:10-0400 BP Systolic 141 mm[Hg] Yuliet [facility] Work Phone: 03-18-2017 13:10-0400 Height 157.48 cm [facility] Work Phone: 03-18-2017 13:10-0400 Pulse (Heart Rate) 73 /min [facility] Work Phone: 03-18-2017 13:10-0400 Respiratory Rate 18 /min [facility] Work Phone: 03-18-2017 13:10-0400 [facility] 89.18 [facility] Work Phone: 10-19-2016 11:30-0400 Body Temperature 98.01 [degF] [facility] Work Phone: 10-19-2016 11:30-0400 BSA (Body Surface Area) 1.9 m2 [facility] Work Phone: 10-19-2016 11:30-0400 Height 157.48 cm [facility] Work Phone: 10-19-2016 11:30-0400 Weight 88.99 kg [facility] Work Phone: Encounters Encounter Date Encounter Type Care Provider Facility Start: 10-17-2020 End: 10-17-2020 Subsequent hospital visit by physician Korey Barry Work Phone: [facility] Procedures Date Procedure Procedure Detail Performing Clinician Start: 10-17-2020 Radex elbow complete minimum 3 views Korey Barry Work Phone: Start: 08-15-2020 Radex elbow complete minimum 3 views Korey Barry Work Phone: Start: 03-18-2017 End: 03-18-2017 Dietary management education, guidance, and counseling Yuliet Aguilar Start: 10-28-2016 End: 03-26-2017 Upper GI endoscopy, [...] - Td) DTaP/Tdap/Td vaccine (3 - Td) [place] Start: 09-26-2020 End: 09-26-2020 Nurse Only [facility] [place] Start: 08-18-2020 Annual Wellness Visit (AWV) Annual Wellness Visit (AWV) [facility] Work Phone: Start: 04-09-2020 Influenza vaccination INFLUENZA (#1) [facility] Start: 03-26-2017 End: 03-26-2017 Appointment Appointment [facility] [employer] Work Phone: Start: 03-18-2017 End: 03-22-2017 Upper GI endoscopy, biopsy Upper gastrointestinal endoscopy; with biopsy [facility] [employer] Work Phone: Start: 10-28-2016 End: 03-26-2017 Upper GI endoscopy, biopsy Upper gastrointestinal endoscopy; with biopsy [facility] [employer] Work Phone: Start: 10-19-2016 End: 03-26-2017 Upper GI endoscopy, biopsy Upper gastrointestinal endoscopy; with biopsy [facility] [employer] Work Phone: Start: 10-09-2016 End: 10-09-2016 Endocrinology Referral [employer] Work Phone: Start: 10-08-2016 End: 03-26-2017 Follow Up after Imaging/labs Follow Up after Imaging/labs [facility] [employer] Work Phone: Start: 10-08-2016 End: 10-09-2016 Gastric emptying study NM Gastric Emptying Study [facility] [employer] Work Phone: Start: 10-08-2016 End: 10-08-2016 HbA1c Hemoglobin A1C [facility] [employer] Work Phone: Start: 10-08-2016 End: 10-09-2016 X-ray exam, upper gi tract Upper GI & Small Bowel [facility] [employer] Work Phone: Start: 09-24-2016 End: 09-24-2016 [facility] [employer] Work Phone: Start: 09-24-2016 End: 09-24-2016 Follow Up Appt 1 month Follow Up Appt 1 month [employer] Work Phone: Start: 09-24-2016 End: 09-24-2016 Pulmonary Function Test - complete Pulmonary Function Test - complete [facility] [employer] Work Phone: Start: 07-31-2016 End: 09-18-2016 Ct thorax w/o dye CT Chest without contrast [facility] [employer] Work Phone: Start: 07-31-2016 End: 07-31-2016 Follow Up Appt 1 month Follow Up Appt 1 month [facility] [employer] Work Phone: Start: 07-31-2016 End: 07-31-2016 Pulmonary Function Test - complete Pulmonary Function Test - complete [employer] Work Phone: Start: 07-31-2016 End: 09-18-2016 Pulmonary stress test/simple Pulmonary stress testing; simple (eg, 6-minute walk) [facility] [employer] Work Phone: Start: 07-31-2016 End: 09-18-2016 Tte w/doppler, complete Echo Complete with Color Flow [facility] Work Phone: Start: 2016 ADVANCE DIRECTIVE DISCUSSION ADVANCE DIRECTIVE DISCUSSION [facility] Start: 2016 BONE DENSITY BONE DENSITY [facility] Start: 2016 Pneumococcal 65+ years Vaccine (2 of 2 - PPSV23) Pneumococcal 65+ years Vaccine (2 of 2 - PPSV23) [place] Start: 2016 PNEUMOVAX AGE 65 AND OVER WITH 5YR LOOKBACK (#1) PNEUMOVAX AGE 65 AND OVER WITH 5YR LOOKBACK (#1) [facility] Start: 2006 Screening for osteoporosis DEXA (modify frequency per FRAX score) [place] Start: 2001 Screening for malignant neoplasm of breast Breast cancer screen [place] Start: 2001 Screening for malignant neoplasm of colon Colon cancer screen colonoscopy [place] Start: 2001 Shingles Vaccine (1 of 2) Shingles Vaccine (1 of 2) [place] Start: 2001 SHINGRIX VACCINE (1 of 2) SHINGRIX VACCINE (1 of 2) [facility] Start: 2001 Tuberculosis screening COLORECTAL CANCER SCREENING,SEE MODIFIER [facility] Start: 1996 DIABETES SCREEN DIABETES SCREEN [facility] Start: 1996 LIPID SCREEN LIPID SCREEN [facility] Start: 1991 Diabetes screen Diabetes screen [place] Start: 1991 Lipid panel Lipid screen [place] Start: 1991 Mammography MAMMOGRAM [facility] Start: 1970 Urine microalbumin profile DTAP,TDAP,TD (1 - Tdap) [facility] Start: 1969 HEPATITIS C SCREENING HEPATITIS C SCREENING [facility] Start: 1967 COVID-19 Vaccine (1 of 2) COVID-19 Vaccine (1 of 2) [facility] Work Phone: Start: 1951 Creatinine measurement Creatinine monitoring [place], [place] Start: 1951 Hepatitis C screening Hepatitis C screen [place], [place] Start: 1951 Potassium monitoring Potassium monitoring [place] Payers Date Payer Category Payer Medicare BCBS MEDICARE AN THEM MEDIBLUE ESSENTIAL/PLUS [id number] 2020-Present [address] [address] [place] [address] [id number] 2004 Unknown MMO ZZZMMO SUPER MED PLUS BH [id number] 2004-2010 PPO [id number] Social History Date Type Detail Facility Tobacco smoking stat [facility] Unknown if ever smoked [facility] Sex Assigned At Not on file [facility] Start: 08-15-2020 End: 10-17-2020 Tobacco smoking status NHIS Never smoker [place] Exposure to SARS-CoV -2 (event) Not sure [place] Start: 10-17-2020 Tobacco use and exposure Never used [employer] Work Phone: Medical Equipment Procedure Code Equipment Code Equipment Original Text Equipment Identifier Dates use 1 TEST STRIP to TEST BLOOD SUGAR 4 TIMES A DAY [id number] Start: 07-24-2020 use 1 LANCET to TEST BLOOD SUGAR four times a day [id number] Start: 07-24-2020 use 1 PEN NEEDLE to inject MEDICATION subcutaneously four times a day [id number] Start: 10-07-2020 use as directed [id number] Start: 07-25-2020 Advance Directives No Advanced Directives Records FoundDocuments on File Type Date Recorded 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 [facility]. provides no warranty or guarantee of the accuracy or completeness of information in this document.
[2023-09-29 08:42] LABS: Hematocrit 34.3 % (37-47); Mean Corp Hgb Conc 32.1 g/dL (32-36); Mean Corpuscular Hgb 28.9 pg (27.0-32.0); Mean Corpuscular Volume 90.3 fL (81-99); Mean Platelet Vol. 10.2 fl (6.2-12.0); Platelet Count 371 K/mm3 (150-450); RBC Distribution Width CV 13.3 % (11.6-14.6); RBC Distribution Width SD 44.1 fl (35.1-43.9); White Blood Count 12.9 K/mm3 (4.4-11.0)
[2023-09-29 09:19] LABS: AST(SGOT) 11 U/L (15-37); Alanine Aminotransfer ALT/SGPT 22 U/L (13-56); Albumin, Serum 3.2 g/dL (3.2-5.0); Alkaline Phosphatase 104 U/L (45-117); Anion Gap 6 (5-15); BUN 12 mg/dL (7-18); BUN/Creat Ratio 17.7 RATIO (10-20); Calcium,Total 9.4 mg/dL (8.5-10.1); Chloride 99 mmol/L (98-107); Creatinine, Serum 0.68 mg/dL (0.55-1.02); EST Glomerular Filtration Rate 91 mL/min (>60); Est Glom Filt Rate - Afr Amer 110 mL/min (>60); Globulin 3.3 g/dL (2.2-4.2); Glucose 96 mg/dL (74-106); Potassium 4.1 mmol/L (3.5-5.1); Protein, Total 6.5 g/dL (6.4-8.2); Sodium Level 134 mmol/L (136-145)
== END ==
LOC: OLS.SW 05:00
PROVIDERS: PCP Internal Medicine; Visit Provider Family Medicine
DX: I10 Essential (primary) hypertension (principal)
CPT/HCPCS: 36415; 80053; 85027

== ENCOUNTER → 2023-10-06 | Outpatient (REF) | payer MEDICARE, SELFPAY ==
[2021-11-03 12:08] VITALS: BMI 34.9
[2023-10-06 08:19] LABS: Hematocrit 35.5 % (37-47); Hemoglobin 11.2 g/dL (12.0-15.0); Mean Corp Hgb Conc 31.5 g/dL (32-36); Mean Corpuscular Hgb 28.4 pg (27.0-32.0); Mean Corpuscular Volume 90.1 fL (81-99); Mean Platelet Vol. 10.6 fl (6.2-12.0); Platelet Count 293 K/mm3 (150-450); RBC Distribution Width CV 13.3 % (11.6-14.6); RBC Distribution Width SD 43.8 fl (35.1-43.9); Red Blood Count 3.94 M/mm3 (4.2-5.4); White Blood Count 11.7 K/mm3 (4.4-11.0)
[2023-10-06 08:49] LABS: ALB/GLOB Ratio 1.1 RATIO (0.9-2.4); AST(SGOT) 17 U/L (15-37); Alanine Aminotransfer ALT/SGPT 27 U/L (13-56); Albumin, Serum 3.3 g/dL (3.2-5.0); Alkaline Phosphatase 102 U/L (45-117); Anion Gap 4 (5-15); BUN 11 mg/dL (7-18); BUN/Creat Ratio 14.3 RATIO (10-20); Calcium,Total 9.8 mg/dL (8.5-10.1); Chloride 100 mmol/L (98-107); Creatinine, Serum 0.77 mg/dL (0.55-1.02); EST Glomerular Filtration Rate 78 mL/min (>60); Est Glom Filt Rate - Afr Amer 95 mL/min (>60); Globulin 3.1 g/dL (2.2-4.2); Glucose 98 mg/dL (74-106); Potassium 4.3 mmol/L (3.5-5.1); Protein, Total 6.4 g/dL (6.4-8.2); Sodium Level 136 mmol/L (136-145)
[2023-10-06 09:05] LABS: Hemoglobin A1c 7.7 % (3.8-5.6)
== END ==
LOC: OLS.SWAL 05:00
PROVIDERS: PCP Internal Medicine; Visit Provider Internal Medicine
DX: I48.91 Unspecified atrial fibrillation (principal); D64.9 Anemia, unspecified; I10 Essential (primary) hypertension; E11.69 Type 2 diabetes mellitus with other specified complication; J44.1 Chronic obstructive pulmonary disease with (acute) exacerbation
CPT/HCPCS: 36415; 80053; 83036; 85027

== ENCOUNTER → 2023-10-20 | Outpatient (REF) | payer MEDICARE, SELFPAY ==
[2021-11-03 12:08] VITALS: BMI 34.9
--- OUTSIDE RECORDS SUMMARY | 2023-10-20 04:23 | XMS RPT_ITS | CCD ---
Author Name Unknown Address [address] [place] [address] Organization [facility] Care Team Providers Care Chemical Manager Name Role Phone Jerry MELVIN, Bolivar Rosado Unavailable [phone] Yuliet Aguilar Unavailable Unavailable Mike Richard Primary Care Provider [phone] Unavailable Primary Care Provider Billy Nowak Primary Care Provider Allergies Allergy Classification Reported Allergen(s) Allergy Type Date of Onset Reaction(s) Facility (6 sources) amoxicillin drug allergy 12-20-19 09 Hives [facility] Work Phone: (3 sources) cephalexin drug allergy 06-01-20 16 GI upset [facility] Work Phone: (3 sources) Cephalosporins (Antibiotic) drug allergy 06-01-20 16 trouble breathing and lip numbing [facility] Work Phone: (3 sources) ciprofloxacin drug allergy 06-01-20 16 edema [facility] Work Phone: (3 sources) codeine drug allergy 06-01-20 16 [facility] Work Phone: (3 sources) Corticosteroids drug allergy 06-01-20 16 anxious [facility] Work Phone: (3 sources) gabapentin drug allergy 06-01-20 16 dyspnea [facility] Work Phone: (3 sources) levoFLOXacin drug allergy 06-01-20 16 hives [facility] Work Phone: (3 sources) meperidine drug allergy 06-01-20 16 [facility] Work Phone: (3 sources) nortriptyline drug allergy 06-01-20 16 headache [facility] Work Phone: [phone] (3 sources) sertraline drug allergy 06-01-20 16 felt poorly [facility] Work Phone: [phone] (3 sources) venlafaxine drug allergy 06-01-20 16 anxiety increase [facility] Work Phone: (1 source) Codeine Drug Allergy 04-14-20 16 Other: See Comments [facility] (1 source) Contrast media Drug Allergy 04-14-20 16 [facility] (1 source) levoFLOXacin Drug Allergy 04-14-20 16 [facility] (1 source) Omeprazole Drug Allergy 04-14-20 16 Shortness of Breath [facility] (2 sources) Pseudoephedrine Drug Allergy 04-14-20 16 Rash [facility] (1 source) raNITIdine Drug Allergy 04-14-20 16 [facility] (2 sources) Cephalexin Drug Allergy 06-01-20 16 [place] (See Comments[place] Iodides Propensity to adverse reactions to drug 07-14-20 19 Hives [facility] [place] (1 source) Pseudoephedrine Drug Allergy 12-20-19 09 [facility] Work Phone: (1 source) Morphine And Related Propensity to adverse reactions to drug 12-20-19 [facility] Work Phone: Medications Current Medications Medication Drug [...] times a day as needed HYDROCODONE-ACETAMI LUZMAHEN [id number] July 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 Work Phone: 03-18-2017 13:10-0400 Pulse (Heart Rate) 73 /min Yuliet [facility] Work Phone: 03-18-2017 13:10-0400 Respiratory Rate 18 /min [facility] Work Phone: 03-18-2017 13:10-0400 [facility] Work Phone: 10-19-2016 11:30-0400 Body Temperature 98.01 [degF] [facility] Work Phone: 10-19-2016 11:30-0400 BSA (Body Surface Area) 1.[address] [facility] Work Phone: 10-19-2016 11:30-[address] [facility] Work Phone: 10-19-2016 11:30-0400 [facility] Work Phone: Encounters Encounter Date Encounter Type [...] - Td) DTaP/Tdap/Td vaccine (3 - Td) [place] Start: 09-26-2020 End: 09-26-2020 Nurse Only [facility] Start: 08-18-2020 Annual Wellness Visit (AWV) Annual Wellness Visit (AWV) [facility] Work Phone: Start: 04-09-2020 Influenza vaccination INFLUENZA (#1) [facility] Start: 03-26-2017 End: 03-26-2017 Appointment Appointment [facility] Work Phone: Start: 03-18-2017 End: 03-22-2017 Upper GI endoscopy, biopsy Upper gastrointestinal endoscopy; with biopsy [facility] Work Phone: Start: 10-28-2016 End: 03-26-2017 Upper GI endoscopy, biopsy Upper gastrointestinal endoscopy; with biopsy [facility] [employer] Work Phone: Start: 10-19-2016 End: 03-26-2017 Upper GI endoscopy, biopsy Upper gastrointestinal endoscopy; with biopsy [facility] Work Phone: Start: 10-09-2016 End: 10-09-2016 Endocrinology Referral [facility] Work Phone: Start: 10-08-2016 End: 03-26-2017 Follow Up after Imaging/labs Follow Up after Imaging/labs [facility] Work Phone: Start: 10-08-2016 End: 10-09-2016 Gastric emptying study NM Gastric Emptying Study [facility] [employer] Work Phone: Start: 10-08-2016 End: 10-08-2016 HbA1c Hemoglobin A1C [facility] Work Phone: Start: 10-08-2016 End: 10-09-2016 X-ray exam, upper gi tract Upper GI & Small Bowel [facility] Work Phone: Start: 09-24-2016 End: 09-24-2016 [facility] [employer] Work Phone: Start: 09-24-2016 End: 09-24-2016 Follow Up Appt 1 month Follow Up Appt 1 month [facility] Work Phone: Start: 09-24-2016 End: 09-24-2016 Pulmonary Function Test - complete Pulmonary Function Test - complete [facility] Work Phone: Start: 07-31-2016 End: 09-18-2016 Ct thorax w/o dye CT Chest without contrast [facility] Work Phone: Start: 07-31-2016 End: 07-31-2016 Follow Up Appt 1 month Follow Up Appt 1 month [facility] Work Phone: Start: 07-31-2016 End: 07-31-2016 Pulmonary Function Test - complete Pulmonary Function Test - complete [facility] Work Phone: Start: 07-31-2016 End: 09-18-2016 Pulmonary stress test/simple Pulmonary stress testing; simple (eg, 6-minute walk) [facility] Work Phone: Start: 07-31-2016 End: 09-18-2016 Tte w/doppler, complete Echo Complete with Color Flow [facility] Work Phone: Start: 2016 ADVANCE DIRECTIVE DISCUSSION ADVANCE DIRECTIVE DISCUSSION [facility] Start: 2016 BONE DENSITY BONE DENSITY [facility] Start: 2016 Pneumococcal 65+ years Vaccine (2 of 2 - PPSV23) Pneumococcal 65+ years Vaccine (2 of 2 - PPSV23) [place] Start: 2016 PNEUMOVAX AGE 65 AND OVER WITH 5YR LOOKBACK (#1) PNEUMOVAX AGE 65 AND OVER WITH 5YR LOOKBACK (#1) [facility] Start: 2006 Screening for osteoporosis DEXA (modify frequency per FRAX score) [place], [place] Start: 2001 Screening for malignant neoplasm of breast Breast cancer screen [place] Start: 2001 Screening for malignant neoplasm of colon Colon cancer screen colonoscopy [place], [place] Start: 2001 Shingles Vaccine (1 of 2) Shingles Vaccine (1 of 2) [place] Start: 2001 SHINGRIX VACCINE (1 of 2) SHINGRIX VACCINE (1 of 2) [facility] Start: 2001 Tuberculosis screening COLORECTAL CANCER SCREENING,SEE MODIFIER [facility] Start: 1996 DIABETES SCREEN DIABETES SCREEN [facility] Start: 1996 LIPID SCREEN LIPID SCREEN [facility] Start: 1991 Diabetes screen Diabetes screen [place] Start: 1991 Lipid panel Lipid screen [place] Start: 1991 Mammography MAMMOGRAM [facility] Start: 1970 Urine microalbumin profile DTAP,TDAP,TD (1 - Tdap) [facility] Start: 1969 HEPATITIS C SCREENING HEPATITIS C SCREENING [facility] Start: 1967 COVID-19 Vaccine (1 of 2) COVID-19 Vaccine (1 of 2) [facility] Work Phone: Start: 1951 Creatinine measurement Creatinine monitoring [place], [place] Start: 1951 Hepatitis C screening Hepatitis C screen [place], [place] Start: 1951 Potassium monitoring Potassium monitoring [place], [place] Payers Date Payer Category Payer Medicare BCBS MEDICARE AN THEM MEDIBLUE ESSENTIAL/PLUS [id number] 2020-Present [address] [address] [place] [address] [id number] 2004 Unknown MMO [employer] BH [id number] 2004-2010 PPO [id number] Social History Date Type Detail Facility Tobacco smoking stat [facility] Unknown if ever smoked [facility] Sex Assigned At Not on file [facility] Start: 08-15-2020 End: 10-17-2020 Tobacco smoking status NHIS Never smoker [place] Exposure to SARS-CoV -2 (event) Not sure [place] Start: 10-17-2020 Tobacco use and exposure Never used [employer] Work Phone: Medical Equipment Procedure Code Equipment Code Equipment Original Text Equipment Identifier Dates use 1 TEST STRIP to TEST BLOOD SUGAR 4 TIMES A DAY [id number] Start: 07-24-2020 use 1 LANCET to TEST BLOOD SUGAR four times a day [id number] Start: 07-24-2020 use 1 PEN NEEDLE to inject MEDICATION subcutaneously four times a day [id number] Start: 10-07-2020 use as directed [id number] Start: 07-25-2020 Advance Directives No Advanced Directives Records FoundDocuments on File Type Date Recorded Patient Family Mediator Expl anation Advance Directive(s) Advance Directive(s) 04/28/2016 [...] or prosecute any alcohol or drug abuse patient.[facility] INFORMATION SOURCE (unrecogn ized section and [...] BE BASED ON THE PRIMARY CLINICAL RECORDS. [facility]. provides no warranty or guarantee of the accuracy or completeness of information in this document.
[2023-10-20 08:10] LABS: Vitamin B12 506 pg/mL (211-911)
[2023-10-20 08:44] LABS: Cholesterol 155 mg/dL (200); High Density Lipoprotein 92 mg/dL; Triglycerides 82 mg/dL; Very Low Density Lipoprotein 16 mg/dL (5-40)
== END ==
LOC: OLS.SWAL 04:00
PROVIDERS: PCP Internal Medicine; Referring Provider Internal Medicine; Visit Provider Internal Medicine
DX: E78.5 Hyperlipidemia, unspecified (principal); I11.0 Hypertensive heart disease with heart failure; I50.32 Chronic diastolic (congestive) heart failure; E55.9 Vitamin D deficiency, unspecified
CPT/HCPCS: 36415; 80061; 82306; 82607

== ENCOUNTER → 2023-10-27 | Outpatient (REF) | payer MEDICARE, SELFPAY ==
[2021-11-03 12:08] VITALS: BMI 34.9
[2023-10-27 08:09] LABS: Hematocrit 31.8 % (37-47); Hemoglobin 10.1 g/dL (12.0-15.0); Mean Corp Hgb Conc 31.8 g/dL (32-36); Mean Corpuscular Hgb 28.9 pg (27.0-32.0); Mean Corpuscular Volume 91.1 fL (81-99); Mean Platelet Vol. 10.7 fl (6.2-12.0); Platelet Count 307 K/mm3 (150-450); RBC Distribution Width CV 13.6 % (11.6-14.6); Red Blood Count 3.49 M/mm3 (4.2-5.4); White Blood Count 11.5 K/mm3 (4.4-11.0)
[2023-10-27 08:38] LABS: AST(SGOT) 11 U/L (15-37); Alanine Aminotransfer ALT/SGPT 22 U/L (13-56); Albumin, Serum 3.1 g/dL (3.2-5.0); Alkaline Phosphatase 133 U/L (45-117); Anion Gap 5 (5-15); BUN 10 mg/dL (7-18); BUN/Creat Ratio 14.3 RATIO (10-20); Calcium,Total 9.8 mg/dL (8.5-10.1); Chloride 101 mmol/L (98-107); EST Glomerular Filtration Rate 88 mL/min (>60); Est Glom Filt Rate - Afr Amer 106 mL/min (>60); Globulin 3.2 g/dL (2.2-4.2); Glucose 156 mg/dL (74-106); Potassium 3.8 mmol/L (3.5-5.1); Protein, Total 6.3 g/dL (6.4-8.2); Sodium Level 137 mmol/L (136-145)
== END ==
LOC: OLS.SWAL 05:00
PROVIDERS: PCP Internal Medicine; Visit Provider Internal Medicine
DX: I50.32 Chronic diastolic (congestive) heart failure (principal); E11.69 Type 2 diabetes mellitus with other specified complication; D64.9 Anemia, unspecified
CPT/HCPCS: 36415; 80053; 85027

== ENCOUNTER → 2023-11-02 | Outpatient (CLI) | payer MEDICARE, MEDICAID, SELFPAY ==
[2021-11-03 12:08] VITALS: BMI 34.9
--- NOTE | 2023-11-02 09:12 | RAD_ITS ---
STUDY: X-RAY - ESOPHAGUS (BARIUM SWALLOW) WITH FLUOROSCOPY REASON FOR EXAM: Female, 73 years old. Dysphagia, unspecified TECHNIQUE: 22 view(s) of the esophagus were obtained following swallowing of barium. FLUOROSCOPY TIME (if supplied): (35 seconds) minutes/seconds. 23.67 mGy. COMPARISON: None. FINDINGS: There is no demonstrated esophageal foreign body. 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 Normal gastroesophageal junction, without a demonstrated hiatal hernia. The patient ingested a 12 mm tablet of barium without any difficulty. There is atherosclerotic calcification of the aortic arch with tortuosity of the descending aorta. Normal visualized pulmonary parenchyma. Normal visualized osseous structures of the thorax. RAD/Esophagus Dual Contrast IMPRESSION: Tertiary contractions of the mid and distal esophagus. No evidence of gastroesophageal reflux. Electronically Signed: Bruce Lubin MD at 10:15 EDT ,
== END | disposition home or self-care (01) ==
LOC: RAD 09:11
PROVIDERS: PCP Internal Medicine; Referring Provider Otolaryngology; Visit Provider Otolaryngology
DX: R13.10 Dysphagia, unspecified (principal)
CPT/HCPCS: 74221

== ENCOUNTER → 2023-11-04 | Outpatient (REF) | payer MEDICARE, MEDICAID, SELFPAY ==
[2021-11-03 12:08] VITALS: BMI 34.9
[2023-11-04 09:36] LABS: Hemoglobin A1c 7.8 % (3.8-5.6)
== END ==
LOC: OLS.SWAL 05:00
PROVIDERS: PCP Internal Medicine; Visit Provider Internal Medicine
DX: E11.9 Type 2 diabetes mellitus without complications (principal)
CPT/HCPCS: 36415; 83036

== ENCOUNTER → 2023-11-17 | Outpatient (REF) | payer MEDICARE, SELFPAY ==
[2021-11-03 12:08] VITALS: BMI 34.9
[2023-11-17 08:21] LABS: Hematocrit 32.9 % (37-47); Hemoglobin 10.4 g/dL (12.0-15.0); Mean Corp Hgb Conc 31.6 g/dL (32-36); Mean Corpuscular Volume 91.6 fL (81-99); Mean Platelet Vol. 10.9 fl (6.2-12.0); Platelet Count 314 K/mm3 (150-450); RBC Distribution Width CV 12.7 % (11.6-14.6); RBC Distribution Width SD 42.6 fl (35.1-43.9); Red Blood Count 3.59 M/mm3 (4.2-5.4); White Blood Count 10.5 K/mm3 (4.4-11.0)
[2023-11-17 08:47] LABS: AST(SGOT) 13 U/L (15-37); Alanine Aminotransfer ALT/SGPT 21 U/L (13-56); Albumin, Serum 3.1 g/dL (3.2-5.0); Alkaline Phosphatase 99 U/L (45-117); Anion Gap 4 (5-15); BUN 12 mg/dL (7-18); BUN/Creat Ratio 18.1 RATIO (10-20); Calcium,Total 9.4 mg/dL (8.5-10.1); Chloride 99 mmol/L (98-107); Creatinine, Serum 0.66 mg/dL (0.55-1.02); EST Glomerular Filtration Rate 93 mL/min (>60); Est Glom Filt Rate - Afr Amer 112 mL/min (>60); Globulin 3.1 g/dL (2.2-4.2); Glucose 100 mg/dL (74-106); Potassium 3.9 mmol/L (3.5-5.1); Protein, Total 6.2 g/dL (6.4-8.2); Sodium Level 135 mmol/L (136-145)
== END ==
LOC: OLS.SWAL 05:00
PROVIDERS: PCP Internal Medicine; Visit Provider Internal Medicine
DX: J44.1 Chronic obstructive pulmonary disease with (acute) exacerbation (principal); E11.69 Type 2 diabetes mellitus with other specified complication; D64.9 Anemia, unspecified; E78.5 Hyperlipidemia, unspecified
CPT/HCPCS: 36415; 80053; 85027

== ENCOUNTER → 2023-11-19 | Outpatient (REF) | payer MEDICARE, SELFPAY ==
[2021-11-03 12:08] VITALS: BMI 34.9
[2023-11-19 17:55] LABS: Mucous, Urine 0 SEEN /hpf (<or=2+)
[2023-11-19 17:58] LABS: Color, Urine Yellow (Yellow); Glucose, Dipstick Normal (Normal); Ketone-Dipstick Negative (Negative); Leukocyte Esterase-Dipstick 500 /ul (Negative); Nitrite-Dipstick Positive (Negative); Occult Blood-Urine 250 /ul (Negative); Protein-Dipstick Negative (Negative); Specific Gravity, Urine 1.005 (1.002-1.030); Urine Bilirubin Dipstick Negative (Negative); Urine Clarity Clear (Clear); Urine Urobilinogen Normal (Normal)
[2023-11-19 18:15] LABS: Bacteria 3+ /hpf (None Seen); Red Blood Cells-Urine 0-5 SEEN /hpf (0-5); Squamous Epithelial Cells - UA 0-5 SEEN /hpf (5-10); White Blood Cells 5-10 SEEN /hpf (0-5)
== END ==
LOC: OLS.SWAL 17:53
PROVIDERS: PCP Internal Medicine; Visit Provider Internal Medicine
DX: N39.0 Urinary tract infection, site not specified (principal)
CPT/HCPCS: 81001; 87086; 87088; 87186

== ENCOUNTER → 2023-11-23 | Outpatient (CLI) | payer MEDICARE, SELFPAY ==
[2021-11-03 12:08] VITALS: BMI 34.9
--- NOTE | 2023-11-23 12:42 | US_ITS ---
STUDY: THYROID ULTRASOUND REASON FOR EXAM: Female, 73 years old. Thyroid Nodule TECHNIQUE: Ultrasound evaluation of the thyroid was performed with real-time and static godinez-scale imaging. COMPARISON: Comparison is made with prior study dated December 16, 2022. FINDINGS: RIGHT LOBE: The right lobe of the thyroid gland is enlarged and measures 5.3 cm x 2 cm x 1.6 cm. There is a heterogeneous echotexture. Multiple nodules are once again seen within the right lobe. The largest measures 1.7 cm x 1.7 cm x 1.4 cm. This is a complex nodule. These are unchanged. LEFT LOBE: The left lobe of the thyroid gland measures 3.4 cm x 1.7 cm x 1.8 cm. There is a heterogeneous echotexture. Multiple cystic and heterogeneous nodules are seen throughout. The largest measures 9 mm x 6 mm x 6 mm. ISTHMUS: The isthmus measures 5 mm. The regional lymph nodes are normal. US/Thyroid IMPRESSION: Heterogeneous echotexture of the thyroid gland as described. Enlargement of the right lobe of the thyroid with stable bilateral nodules. Electronically Signed: Bruce Lubin MD at 8:59 EDT ,
== END | disposition home or self-care (01) ==
LOC: US 12:39
PROVIDERS: PCP Internal Medicine; Referring Provider Internal Medicine; Visit Provider Internal Medicine
DX: E04.1 Nontoxic single thyroid nodule (principal)
CPT/HCPCS: 76536

== ENCOUNTER → 2023-12-01 | Outpatient (REF) | payer MEDICARE, SELFPAY ==
[2021-11-03 12:08] VITALS: BMI 34.9
[2023-12-02 08:40] LABS: Color, Urine Yellow (Yellow); Glucose, Dipstick 100 mg/dl (Normal); Ketone-Dipstick Negative (Negative); Leukocyte Esterase-Dipstick 500 /ul (Negative); Nitrite-Dipstick Negative (Negative); Occult Blood-Urine 25 /ul (Negative); Protein-Dipstick Negative (Negative); Urine Bilirubin Dipstick Negative (Negative); Urine Clarity Sl. Cloudy (Clear); Urine Urobilinogen Normal (Normal)
[2023-12-02 08:59] LABS: White Blood Cells 25-50 SEEN /hpf (0-5)
[2023-12-02 09:00] LABS: Mucous, Urine RARE /hpf (<or=2+); Red Blood Cells-Urine 0-5 SEEN /hpf (0-5); Squamous Epithelial Cells - UA 0-5 SEEN /hpf (5-10)
[2023-12-02 09:01] LABS: Bacteria 2+ /hpf (None Seen)
== END ==
LOC: OLS.SWAL 16:00
PROVIDERS: PCP Internal Medicine; Visit Provider Internal Medicine
DX: N39.0 Urinary tract infection, site not specified (principal)
CPT/HCPCS: 81001; 87086; 87088; 87186

== ENCOUNTER 2023-12-08 13:44 | Emergency (ER) | payer MEDICARE, MEDICAID, SELFPAY ==
[2021-11-03 12:08] VITALS: BMI 34.9
[2023-12-08] VITALS (8 sets, daily range): BP systolic 109–159; BP diastolic 50–84; PULSE 64–80; RESP 16–20; TEMP 36.4–36.7; O2SAT 93–100; BMI 38.5
--- NOTE | 2023-12-08 14:47 | ED.VIS.GI ---
HPI HPI - GI History of Present Illness Chief Complaint: Complaint Narrative Narrative: 73-year-old female past medical history of chronic respiratory failure/COPD, diabetes, presents from assisted living via EMS with nausea, vomiting, and diarrhea. She relates history that this is a second time she is being treated for a UTI. They started her on Macrobid. Over the last 4 days she has had multiple episodes of nausea, vomiting, and diarrhea. In the last 24 hours she is only vomited once without any blood in her emesis but is having watery stool that is also nonbloody. She also describes epigastric abdominal pain and pain in the left and right lower quadrants. Past surgical history includes cholecystectomy. She denies any exacerbating or alleviating factors. She does have multiple allergies to antibiotics and pain medications. She presents because her nurse at [facility] living thought she needed to be evaluated for all the diarrhea that she is having. This is her second treatment with Macrobid. [facility] Medical History Anemia Anxiety and depression Asthma with COPD Atherosclerotic heart disease of [place] coronary artery without angina pectoris Back pain Bilateral pneumonia Chest pain Chronic back pain Chronic respiratory failure COPD (chronic obstructive pulmonary disease) Diastolic CHF Endotracheally intubated Former smoker Hepatitis HLD (hyperlipidemia) Hypertension Morbid obesity Obesity MARK treated with BiPAP Psoriasis Smoking greater than 40 pack years Thyroid nodule Type 2 diabetes mellitus Home Medications Handicap Placard #1 ea 12/12/20 [Rx Last Taken Unknown] bisacodyl 5 mg tablet,delayed release (Dulcolax (bisacodyl)) 5 mg PO QHS PRN constipation 30 days #30 tabs 11/13/21 [Rx Last Taken Unknown] pen needle, diabetic 32 gauge x #50 ea 02/11/22 [Rx Last Taken Unknown] blood sugar diagnostic (True Metrix Glucose Test Strip) #100 ea 09/11/22 [Rx Last Taken Unknown] blood-glucose meter (True Metrix Glucose Meter) #1 ea 09/11/22 [Rx Last Taken Unknown] albuterol sulfate 90 mcg/actuation aerosol inhaler 2 puff inhalation Q6H PRN shortness of breath or wheezing #18 grams 11/06/22 [Rx Last Taken Unknown] ipratropium 0.5 mg-albuterol 3 mg (2.5 mg base)/3 mL nebulization soln 3 ml inhalation Q4H PRN PRN SOB &/OR WHEEZING #180 mL 11/10/22 [Rx Last Taken Unknown] cane #1 ea 11/16/22 [Rx Last Taken Unknown] citalopram 40 mg tablet 40 mg PO QHS depression #90 tabs 11/16/22 [Rx Last Taken Unknown] isosorbide mononitrate 60 mg tablet,extended release 24 hr 60 mg PO DAILY BP #90 tabs 12/26/22 [Rx Last Taken Unknown] nitroglycerin 0.4 mg sublingual tablet 0.4 mg sublingual Q5-15M PRN Pain #30 tabs 12/26/22 [Rx Last Taken Unknown] flash glucose sensor ([employer] Emily 2 Sensor kit) #2 ea 01/06/23 [Rx Last Taken Unknown] atorvastatin 80 mg tablet 80 mg PO QHS cholesterol 01/26/23 [History Last Taken Unknown] clopidogrel 75 mg tablet 75 mg PO DAILY blood thinner 01/26/23 [History Last Taken Unknown] furosemide 20 mg tablet (Lasix) 20 mg PO BID diuretic 01/26/23 [History Last Taken Unknown] metoprolol tartrate 25 mg tablet 12.5 mg PO BID blood pressure 01/26/23 [History Last Taken Unknown] flash glucose scanning reader ([employer] Emily 2 [place]) #1 ea 03/23/23 [Rx Last Taken Unknown] ondansetron HCl 4 mg tablet 4 mg PO Q6H PRN nausea and vomiting #14 tabs 04/16/23 [Rx Last Taken Unknown] sucralfate 1 gram tablet (Carafate) 1 g PO TID PRN acid reflux #20 tabs 04/16/23 [Rx Last Taken Unknown] pantoprazole 40 mg tablet,delayed release 40 mg PO BID stomach #180 tabs 05/20/23 [Rx Last Taken Unknown] acetaminophen 500 mg tablet 1,000 mg (2 x 500 mg) PO Q8 pain 7 days #0 tabs 06/04/23 [Rx Last Taken 08/21/23] insulin lispro 100 unit/mL subcutaneous pen (Humalog KwikPen (U-100) Insulin) 2 - 11 unit subcut ACHS diabetes #0 mL 06/04/23 [Rx Last Taken 08/21/23] losartan 25 mg tablet 50 mg (2 x 25 mg) PO DAILY blood pressure 30 days #0 tabs 06/04/23 [Rx Last Taken Unknown] aluminum-magnesium hydroxide 225 mg-200 mg/5 mL oral suspension 30 ml PO Q4H PRN UPSET STOMACH 07/23/23 [History Last Taken Unknown] buspirone 5 mg tablet 7.5 mg PO TID mental health 07/23/23 [History Last Taken Unknown] dextrose 40 % oral gel (Glucose Gel) 10 g PO Q15M PRN hypoglycemia 07/23/23 [History Last Taken Unknown] guaifenesin 200 mg/5 mL oral liquid 400 mg PO Q4H PRN cough 07/23/23 [History Last Taken Unknown] therapeutic multivitamin 1 tab PO DAILY vitamin 07/23/23 [History Last Taken 08/21/23] budesonide 1 mg/2 mL suspension for nebulization 0.5 mg inhalation BID breathing 08/13/23 [History Last Taken Unknown] insulin glargine 100 unit/mL (3 mL) subcutaneous pen (Basaglar KwikPen U-100 Insulin) 32 unit subcut QHS diabetic managment 08/13/23 [History Last Taken 08/21/23] potassium chloride 20 mEq tablet,extended release 20 meq PO BID supplement 08/22/23 [History Last Taken Unknown] prednisone 10 mg tablet 10 mg PO DAILY inflammation 08/22/23 [History Last Taken Unknown] trazodone 50 mg tablet 25 mg PO QHS sleep 08/22/23 [History Last Taken Unknown] cefdinir 300 mg capsule 300 mg PO BID #14 caps 08/26/23 [Rx Last Taken Unknown] insulin lispro 100 unit/mL subcutaneous pen (Humalog KwikPen (U-100) Insulin) 5 unit (0.05 mL) subcut TIDAC #0 mL 08/26/23 [Rx Last Taken Unknown] insulin lispro 100 unit/mL subcutaneous pen (Humalog KwikPen (U-100) Insulin) See Protocol subcut ACHS #0 mL 08/26/23 [Rx Last Taken Unknown] sulfamethoxazole 800 mg-trimethoprim 160 mg tablet (Bactrim DS) 1 tab PO BID #14 tabs 12/08/23 [Rx Last Taken Unknown] Allergy/AdvReac Type Severity Reaction Status Date / Time Iodinated Contrast Media Allergy Severe Anaphylaxis Verified 12/08/23 13:44 amoxicillin [Amoxicillin] Allergy Intermediate Rash Verified 12/08/23 13:44 hydrocodone Allergy Intermediate SWELLING Verified 12/08/23 13:44 gabapentin [From Neurontin] Allergy Shortness Verified 12/08/23 13:44 of breath levofloxacin [From Levaquin] Allergy Hives Verified 12/08/23 13:44 pseudoephedrine HCl Allergy Shortness Verified 12/08/23 13:44 [From Sudafed] of breath red dye Allergy Hives Verified 12/08/23 13:44 prednisone AdvReac Severe mean mood Verified 12/08/23 13:44 clonazepam [From Klonopin] AdvReac Depression Verified 12/08/23 13:44 codeine AdvReac HEADACHE Verified 12/08/23 13:44 Family History Brother Heart disease Mother Colon cancer Heart disease Surgical History History of cholecystectomy History of left heart catheterization (LHC) (~09/23/20) Stented coronary artery (12/28/18) Social History Smoking Status: Former smoker pack-years: 40 how long ago did patient quit smokin year ago alcohol intake: never substance use type: does not use caffeine: Yes Type: carbonated beverages and tea what type of physical activity do you participate in: none ROS ROS ED ROS Narrative Constitutional: No fever, no chills. HEENT: No sore throat. No neck pain. No loss of vision. No rhinorrhea. Cardiovascular: No chest pain. No palpitations. No pedal edema. Respiratory: No cough, no shortness of breath. Abdominal: Positive epigastric, and bilateral lower quadrant abdominal pain. Positive nausea and vomiting, 1 episode last 24 hours. Multiple episodes of watery diarrhea. Genitourinary: No dysuria. No hematuria. Musculoskeletal: No myalgias. No arthralgias. Neurologic: No headaches. No dizziness. No lightheadedness. Skin: No rash. No change in color. Psychiatric: No depression. No anxiety. EXAM Physical Exam Narrative Exam Narrative: Afebrile. Vital signs noted. HEENT: Normocephalic. Atraumatic. PERRL, EOMI. Neck soft and supple. No point tenderness or step off. Cardiovascular: Regular rate and rhythm. No murmurs, rubs, or gallops appreciated. Respiratory: No tachypnea. Diminished breath sounds bilateral bases. Gastrointestinal: Abdomen soft, positive tenderness in epigastrium, bilateral lower quadrants, with normoactive bowel sounds. No rebound or guarding. Neurological: Awake. Alert. Nonfocal, nonlateralizing. Skin: No rash. Normal color. No pallor. Musculoskeletal: No pedal edema. Full range of motion extremities. Const Vital Signs: 12/08/23 13:45 12/08/23 13:45 12/08/23 14:49 Temperature 97.6 F L 97.6 F L 97.6 F L Temperature Source Temporal Temporal Oral Pulse Rate 68 68 64 Respiratory Rate 18 18 20 H Respiratory Pattern Blood Pressure 134/64 H 134/64 H 116/50 L Blood Pressure Mean 87 87 72 Pulse Ox 94 94 99 Oxygen Delivery Method Nasal Cannula Nasal Cannula Nasal Cannula Oxygen Flow Rate (L/min) 4 4 4 12/08/23 15:33 12/08/23 15:35 12/08/23 15:44 Temperature Temperature Source Pulse Rate 66 64 Respiratory Rate 20 H 17 Respiratory Pattern Tachypnea Blood Pressure 109/60 Blood Pressure Mean 76 Pulse Ox 100 93 Oxygen Delivery Method Nasal Cannula Nasal Cannula Oxygen Flow Rate (L/min) 4 4 12/08/23 17:00 Temperature Temperature Source Pulse Rate 65 Respiratory Rate 18 Respiratory Pattern Blood Pressure 113/74 Blood Pressure Mean 87 Pulse Ox 100 Oxygen Delivery Method Nasal Cannula Oxygen Flow Rate (L/min) 4 MDM MDM MDM Narrative Medical decision making narrative: In the differential diagnosis is gastroenteritis versus C. difficile versus obstruction/partial small bowel obstruction versus pancreatitis. Comprehensive workup was pursued. She has multiple allergies to codeine and hydrocodone along with anaphylaxis to IV contrast. CT of the abdomen and pelvis will be obtained without contrast. She was bolused normal saline and administered ondansetron for her nausea. I reviewed her laboratory work and she has a leukocytosis of 15.6, but it appears as this is chronic as it has been elevated in the past, hemoglobin stable at 10.1, platelet count normal at 418. Sodium of 132 with chloride 96. She was bolused IV fluids. She has normal anion gap of 6. CO2 30. Glucose is appropriately elevated at 119. LFTs are remarkable for an AST of 11 which I think is nonspecific. Urinalysis is positive for nitrites with greater than 100 WBCs. Although there is a small amount of epithelial cells, I do think that she has continued UTI. CT of the abdomen and pelvis shows no acute process. She does have diverticulosis but no evidence of diverticulitis. She was seen ambulating to the bathroom without difficulty. Urine culture will be sent. She states that she will not take Macrobid because of the side effects such as her nausea, vomiting, and diarrhea. She states she is able to take Bactrim DS. She was given her first dose here in the emergency department and prescription written for the next 7 days. I did discuss with her admission or observation, but she states she would like to be discharged back to her assisted living facility at [facility]. I feel she can be discharged to follow-up with her primary care provider. Return instructions were reviewed. Disposition is discharged in stable condition. History & Record Review Discussion w/independent historian: Patient Additional record(s) reviewed:: Prior labs Lab Data Attestation: I reviewed the patient's lab results. Labs: Laboratory Results - last 24 hr 12/08/23 12/08/23 15:00 15:32 WBC 15.6 H RBC 3.51 L Hgb 10.1 L Hct 32.2 L MCV 91.7 MCH 28.8 MCHC 31.4 L RDW Std Deviation 40.8 RDW Coeff of [place] 12.2 Plt Count 418 MPV 9.6 Immature Gran % (Auto) 1.000 H Neut % (Auto) 81.5 H Lymph % (Auto) 8.8 L [place] % (Auto) 6.2 Eos % (Auto) 1.9 Baso % (Auto) 0.6 Absolute Neuts (auto) 12.7 H Absolute Lymphs (auto) 1.37 Nucleated RBC % 0 Sodium 132 L Potassium 4.1 Chloride 96 L Carbon Dioxide 30.0 Anion Gap 6 BUN 10 Creatinine 0.82 Estim Creat Clear Calc 66.91 Est GFR (MDRD) Af Amer 88 Est GFR (MDRD) Non-Af 73 BUN/Creatinine Ratio 12.2 Glucose 119 H Calcium 9.2 Total Bilirubin 0.40 AST 11 L ALT 19 Alkaline Phosphatase 126 H Total Protein 6.8 Albumin 3.2 Globulin 3.6 Albumin/Globulin Ratio 0.9 Lipase 10 L Urine Color Yellow Urine Clarity Clear Urine pH 6.0 Ur Specific [place] 1.010 Urine Protein 15 H Urine Glucose (UA) Normal Urine Ketones Negative Urine Occult Blood 10 H Urine Nitrite Positive H Urine Bilirubin Negative Urine Urobilinogen Normal Ur Leukocyte Esterase 500 H Urine RBC 0 SEEN Urine WBC >100 SEEN Ur Squamous Epith Cells 5-10 SEEN Urine Bacteria 2+ Urine Mucus 0 SEEN Radiography Diagnostic Testing: Clinical Impression(s) from Imaging Studies Abdomen/Pelvis CT 12/08/23 15:45 IMPRESSION: Stable small hepatic cysts. Status post cholecystectomy. Small to moderate-sized umbilical hernia containing fat. Status post cholecystectomy. Mild dilatation of the common bile duct. Scattered sigmoid diverticulosis. Electronically Signed: Bruce Lubin MD at 16:00 EDT , Discharge Plan Triage Chief Complaint: Complaint ED Provider: Serg Barnes Dx/Rx/DC Orders Clinical Impression: Nausea, vomiting, and diarrhea, UTI (urinary tract infection) Instructions: ED Diarrhea, Unknown Cause, ED Vomiting (Adult), ED UTIs Women Prescriptions: New sulfamethoxazole-trimethoprim [Bactrim DS] 800-160 mg tablet 1 tab PO BID Qty: 14 0RF No Action (DME) Handicap Placard See Rx Instructions .ROUTE .MEDSUPPLY Qty: 1 0RF Rx Instructions: As directed, length of time 3 years citalopram 40 mg tablet 40 mg PO QHS Qty: 90 3RF (DME) cane Device See Rx Instructions .Route Qty: 1 0RF Rx Instructions: As directed pantoprazole 40 mg tablet,delayed release (DR/EC) 40 mg PO BID Qty: 180 2RF therapeutic multivitamin Tablet 1 tab PO DAILY guaifenesin 200 mg/5 mL liquid 400 mg PO Q4H PRN (Reason: cough) dextrose [Glucose Gel] 40 % gel 10 g PO Q15M PRN (Reason: hypoglycemia) Rx Instructions: until symptoms of low blood sugar are controlled buspirone 5 mg tablet 7.5 mg PO TID aluminum-magnesium hydroxide 225-200 mg/5 mL suspension 30 ml PO Q4H PRN (Reason: UPSET STOMACH) budesonide 1 mg/2 mL suspension for nebulization 0.5 mg inhalation BID insulin glargine [Basaglar KwikPen U-100 Insulin] 100 unit/mL (3 mL) insulin pen 32 unit subcut QHS Rx Instructions: daily at bedtime isosorbide mononitrate 60 mg tablet extended release 24 hr 60 mg PO DAILY Qty: 90 3RF nitroglycerin 0.4 mg tablet, sublingual 0.4 mg SUBLINGUAL Q5-15M PRN (Reason: Pain) Qty: 30 0RF atorvastatin 80 mg tablet 80 mg PO QHS clopidogrel 75 mg tablet 75 mg PO DAILY furosemide [Lasix] 20 mg tablet 20 mg PO BID metoprolol tartrate 25 mg tablet 12.5 mg PO BID Rx Instructions: sucralfate [Carafate] 1 gram tablet 1 g PO TID PRN (Reason: acid reflux) Qty: 20 0RF ondansetron HCl 4 mg tablet 4 mg PO Q6H PRN (Reason: nausea and vomiting) Qty: 14 0RF acetaminophen 500 mg Tablet 1,000 mg PO Q8 7 Days Qty: 0 0RF insulin lispro [Humalog KwikPen Insulin] 100 unit/mL Insulin Pen 2 - 11 unit subcut ACHS Qty: 0 0RF Protocol: 4. Sliding Scale Insulin High-Med Dosing Condition: 150-199 mg/dl = 2 units Condition: 200-259 mg/dl = 4 units Condition: 260-324 mg/dl = 6 units Condition: 325-374 mg/dl = 8 units Condition: 375-409 mg/dl = 10 units Condition: 410-449 mg/dl = 11 units Condition: Greater than 449 call physician Protocol Text: - Use for Total Daily Dose of Insulin 56-80 units - Patient who are insulin resistant or septic HIGH MEDIUM DOSING ALGORITHM losartan 25 mg tablet 50 mg PO DAILY 30 Days Qty: 0 0RF prednisone 10 mg tablet 10 mg PO DAILY trazodone 50 mg tablet 25 mg PO QHS potassium chloride 20 mEq tablet extended release 20 meq PO BID insulin lispro [Humalog KwikPen Insulin] 100 unit/mL Insulin Pen 5 unit subcut TIDAC Qty: 0 0RF insulin lispro [Humalog KwikPen Insulin] 100 unit/mL Insulin Pen See Protocol subcut ACHS Qty: 0 0RF Protocol: 5. Sliding Scale Insulin High Dosing Condition: 150-209 mg/dl = 3 units Condition: 210-259 mg/dl = 6 units Condition: 260-324 mg/dl = 9 units Condition: 325-374 mg/dl = 12 units Condition: 375-409 mg/dl = 14 units Condition: 410-449 mg/dl = 16 units Condition: Greater than 449 call physician Protocol Text: - Use for Total Daily Dose of Insulin 81-120 units - Very insulin resistant or septic patients HIGH DOSING ALGORITHM cefdinir 300 mg capsule 300 mg PO BID Qty: 14 0RF bisacodyl [Dulcolax (bisacodyl)] 5 mg tablet,delayed release (DR/EC) 5 mg PO QHS PRN (Reason: constipation) 30 Days Qty: 30 3RF (DME) pen needle, diabetic 32 gauge x /32 needle See Rx Instructions .ROUTE .MEDSUPPLY Qty: 50 0RF Rx Instructions: 4x/day (DME) blood-glucose meter [True Metrix Glucose Meter] Misc See Rx Instructions .Route Qty: 1 0RF Rx Instructions: As directed (DME) True Metrix Glucose Test Strip Strip See Rx Instructions .Route Qty: 100 7RF Rx Instructions: tid albuterol sulfate 90 mcg/actuation HFA aerosol inhaler 2 puff INHALATION Q6H PRN (Reason: shortness of breath or wheezing) Qty: 18 3RF ipratropium-albuterol 0.5 mg-3 mg(2.5 mg base)/3 mL solution for nebulization 3 ml INHALATION Q4H PRN PRN (Reason: SOB &/OR WHEEZING) Qty: 180 6RF (DME) Free[employer] Emily 2 Sensor Kit See Rx Instructions .ROUTE .MEDSUPPLY Qty: 2 3RF Rx Instructions: As directed (DME) FreeStyle Emily 2 [place] Misc See Rx Instructions .ROUTE .MEDSUPPLY Qty: 1 0RF Rx Instructions: As directed Primary Care Provider: Brittney Cochran Referrals: Billy Madera MD [[facility] Staff - Active Staff] - Activity Restrictions/Additional Instructions: Stop the Macrobid and take the Bactrim DS twice a day by mouth for 7 days. It has been called in to the skilled care pharmacy. Disposition Disposition: Home, Self Care
[2023-12-08] MEDS: 0.9% Normal Saline (1000mL) 1,000 ML 1000 ML IV (15:10)
[2023-12-08] MEDS: Ondansetron 4 MG/2 ML Vial IV (15:10)
[2023-12-08 15:14] LABS: Absolute Lymphocyte Count 1.37 X10^3/uL (0.83-4.51); Absolute Neutrophil Count 12.7 X10^3/uL (2.0-7.7); Basophil# 0.09 X10^3/uL; Basophil% 0.6 % (0-1); Eosinophils% 1.9 % (0-5); Hematocrit 32.2 % (37-47); Hemoglobin 10.1 g/dL (12.0-15.0); Lymphocyte # 1.37 X10^3/ul (0.83-4.51); Lymphocyte % 8.8 % (19-41); Mean Corp Hgb Conc 31.4 g/dL (32-36); Mean Corpuscular Hgb 28.8 pg (27.0-32.0); Mean Corpuscular Volume 91.7 fL (81-99); Mean Platelet Vol. 9.6 fl (6.2-12.0); Monocyte# 0.96 X10^3/uL; Monocyte% 6.2 % (0-10); NRBC Flagged by Analyzer 0 % (0-5); Neutrophil # 12.69 X10^3/uL (2.7-7.7); Neutrophil % 81.5 % (47-70); Platelet Count 418 K/mm3 (150-450); RBC Distribution Width CV 12.2 % (11.6-14.6); RBC Distribution Width SD 40.8 fl (35.1-43.9); Red Blood Count 3.51 M/mm3 (4.2-5.4); White Blood Count 15.6 K/mm3 (4.4-11.0)
[2023-12-08 15:31] LABS: ALB/GLOB Ratio 0.9 RATIO (0.9-2.4); AST(SGOT) 11 U/L (15-37); Alanine Aminotransfer ALT/SGPT 19 U/L (13-56); Albumin, Serum 3.2 g/dL (3.2-5.0); Alkaline Phosphatase 126 U/L (45-117); Anion Gap 6 (5-15); BUN 10 mg/dL (7-18); BUN/Creat Ratio 12.2 RATIO (10-20); Calcium,Total 9.2 mg/dL (8.5-10.1); Chloride 96 mmol/L (98-107); Creatinine, Serum 0.82 mg/dL (0.55-1.02); EST Glomerular Filtration Rate 73 mL/min (>60); Est Glom Filt Rate - Afr Amer 88 mL/min (>60); Estimated Creatinine Clearance 66.91 ml/min; Globulin 3.6 g/dL (2.2-4.2); Glucose 119 mg/dL (74-106); Lipase 10 U/L (13-75); Potassium 4.1 mmol/L (3.5-5.1); Protein, Total 6.8 g/dL (6.4-8.2); Sodium Level 132 mmol/L (136-145)
[2023-12-08] MEDS: Ipratropium/Albuterol Sulfate 3 ML AMPUL.NEB INHALATION (15:31)
[2023-12-08 15:39] LABS: Mucous, Urine 0 SEEN /hpf (<or=2+); Red Blood Cells-Urine 0 SEEN /hpf (0-5)
--- NOTE | 2023-12-08 15:45 | CT_ITS ---
STUDY: CT ABDOMEN AND PELVIS WITHOUT CONTRAST REASON FOR EXAM: Female, 73 years old. Diffuse abdominal pain. RADIATION DOSAGE (If Supplied By Facility): CTDIvol = ( 21.32 ) mGy, DLP = ( 1182.36 ) mGycm TECHNIQUE: Transaxial images were obtained from the dome of the diaphragm to the symphysis pubis without oral contrast, and without intravenous contrast. Sagittal and coronal images were reconstructed. Individualized dose optimization techniques were used for this CT. COMPARISON: Comparison is made with prior study April 16, 2023. FINDINGS: Mild degree of linear scarring at the lung bases. Coronary artery calcification. Scattered calcified hepatic granulomas. There is a 7.1 mm cyst in the posterior aspect of the right lobe of liver as well as in the medial aspect of the right lobe. This is unchanged. The patient is status post cholecystectomy. Stable minimal dilatation of the common bile duct. There are multiple benign calcified granulomata of the spleen. Normal pancreas. Normal bilateral adrenal glands. Normal right kidney. Normal left kidney. Normal visualized stomach. Normal small intestine. There are scattered colonic diverticula consistent with diverticulosis. The appendix is visualized and appears normal. There is scattered atherosclerotic calcification of the abdominal aorta, without a demonstrated aneurysm. Normal inferior vena cava. Normal retroperitoneum. Normal urinary bladder. There is a small to moderate sized umbilical hernia containing fat. Normal osseous structures. CT/Abdomen/Pelvis without Cont IMPRESSION: Stable small hepatic cysts. Status post cholecystectomy. Small to moderate-sized umbilical hernia containing fat. Status post cholecystectomy. Mild dilatation of the common bile duct. Scattered sigmoid diverticulosis. Electronically Signed: Bruce Lubin MD at 16:00 EDT ,
[2023-12-08 16:08] LABS: Color, Urine Yellow (Yellow); Glucose, Dipstick Normal (Normal); Ketone-Dipstick Negative (Negative); Leukocyte Esterase-Dipstick 500 /ul (Negative); Nitrite-Dipstick Positive (Negative); Occult Blood-Urine 10 /ul (Negative); Protein-Dipstick 15 mg/dl (Negative); Urine Bilirubin Dipstick Negative (Negative); Urine Clarity Clear (Clear); Urine Urobilinogen Normal (Normal)
[2023-12-08 16:47] LABS: Bacteria 2+ /hpf (None Seen); Squamous Epithelial Cells - UA 5-10 SEEN /hpf (5-10); White Blood Cells >100 SEEN /hpf (0-5)
[2023-12-08] MEDS: Smz/Tmp Ds Tablet 1 TABLET PO (18:17)
== END 2023-12-08 20:04 | disposition home or self-care (01) ==
PROVIDERS: Emergency Provider Emergency Medicine; PCP Internal Medicine; Visit Provider Emergency Medicine
DX: R11.2 Nausea with vomiting, unspecified (principal); I50.32 Chronic diastolic (congestive) heart failure; I11.0 Hypertensive heart disease with heart failure; J44.1 Chronic obstructive pulmonary disease with (acute) exacerbation; E11.69 Type 2 diabetes mellitus with other specified complication; N39.0 Urinary tract infection, site not specified; E78.5 Hyperlipidemia, unspecified; R19.7 Diarrhea, unspecified; K57.30 Diverticulosis of large intestine without perforation or abscess without bleeding; Z87.891 Personal history of nicotine dependence; Z90.49 Acquired absence of other specified parts of digestive tract; I25.10 Atherosclerotic heart disease of native coronary artery without angina pectoris; D64.9 Anemia, unspecified
CPT/HCPCS: 36415; 74176; 80053; 81001; 83690; 85025; 85027; 87077; 87086; 87088; 87186; 94640; 96361; 96374; 99284; J7030; A4216; J2405

== ENCOUNTER → 2023-12-08 | Outpatient (REF) | payer MEDICARE, SELFPAY ==
[2021-11-03 12:08] VITALS: BMI 34.9
[2023-12-08 07:47] LABS: Hematocrit 33.2 % (37-47); Hemoglobin 10.5 g/dL (12.0-15.0); Mean Corp Hgb Conc 31.6 g/dL (32-36); Mean Corpuscular Hgb 28.8 pg (27.0-32.0); Mean Corpuscular Volume 91.2 fL (81-99); Mean Platelet Vol. 10.2 fl (6.2-12.0); Platelet Count 444 K/mm3 (150-450); RBC Distribution Width CV 12.1 % (11.6-14.6); RBC Distribution Width SD 40.4 fl (35.1-43.9); Red Blood Count 3.64 M/mm3 (4.2-5.4); White Blood Count 12.6 K/mm3 (4.4-11.0)
[2023-12-08 08:16] LABS: ALB/GLOB Ratio 0.9 RATIO (0.9-2.4); AST(SGOT) 19 U/L (15-37); Alanine Aminotransfer ALT/SGPT 19 U/L (13-56); Albumin, Serum 3.2 g/dL (3.2-5.0); Alkaline Phosphatase 126 U/L (45-117); Anion Gap 3 (5-15); BUN 11 mg/dL (7-18); BUN/Creat Ratio 14.4 RATIO (10-20); Calcium,Total 9.8 mg/dL (8.5-10.1); Chloride 99 mmol/L (98-107); Creatinine, Serum 0.76 mg/dL (0.55-1.02); EST Glomerular Filtration Rate 79 mL/min (>60); Est Glom Filt Rate - Afr Amer 96 mL/min (>60); Globulin 3.5 g/dL (2.2-4.2); Glucose 73 mg/dL (74-106); Potassium 4.1 mmol/L (3.5-5.1); Protein, Total 6.7 g/dL (6.4-8.2); Sodium Level 134 mmol/L (136-145)
== END ==
LOC: OLS.SWAL 04:00
PROVIDERS: PCP Internal Medicine; Referring Provider Internal Medicine; Visit Provider Internal Medicine
DX: J44.1 Chronic obstructive pulmonary disease with (acute) exacerbation (principal); E78.5 Hyperlipidemia, unspecified; E11.69 Type 2 diabetes mellitus with other specified complication; D64.9 Anemia, unspecified
CPT/HCPCS: 36415; 80053; 85027

== ENCOUNTER → 2023-12-13 | Outpatient (REF) | payer MEDICARE, SELFPAY ==
[2021-11-03 12:08] VITALS: BMI 34.9
[2023-12-13 10:06] LABS: ALB/GLOB Ratio 0.9 RATIO (0.9-2.4); AST(SGOT) 15 U/L (15-37); Alanine Aminotransfer ALT/SGPT 19 U/L (13-56); Alkaline Phosphatase 107 U/L (45-117); Anion Gap 7 (5-15); BUN 10 mg/dL (7-18); BUN/Creat Ratio 13.6 RATIO (10-20); Calcium,Total 9.9 mg/dL (8.5-10.1); Chloride 96 mmol/L (98-107); Creatinine, Serum 0.74 mg/dL (0.55-1.02); EST Glomerular Filtration Rate 83 mL/min (>60); Est Glom Filt Rate - Afr Amer 100 mL/min (>60); Globulin 3.3 g/dL (2.2-4.2); Glucose 86 mg/dL (74-106); Potassium 4.5 mmol/L (3.5-5.1); Protein, Total 6.3 g/dL (6.4-8.2); Sodium Level 134 mmol/L (136-145)
== END ==
LOC: OLS.SWAL 08:05
PROVIDERS: PCP Internal Medicine; Visit Provider Internal Medicine
DX: I50.22 Chronic systolic (congestive) heart failure (principal)
CPT/HCPCS: 36415; 80053

== ENCOUNTER → 2023-12-17 | Outpatient (CLI) | payer MEDICARE, MEDICAID, SELFPAY ==
[2021-11-03 12:08] VITALS: BMI 34.9
[2023-12-17 15:52] LABS: BNP,B-Type NATRIURETIC PEPTIDE 55.4 pg/mL (0-100)
[2023-12-17 16:12] LABS: Anion Gap 9 (5-15); BUN 16 mg/dL (7-18); BUN/Creat Ratio 19.6 RATIO (10-20); Calcium,Total 9.7 mg/dL (8.5-10.1); Chloride 90 mmol/L (98-107); Creatinine, Serum 0.82 mg/dL (0.55-1.02); EST Glomerular Filtration Rate 73 mL/min (>60); Est Glom Filt Rate - Afr Amer 89 mL/min (>60); Glucose 253 mg/dL (74-106); Potassium 4.2 mmol/L (3.5-5.1); Sodium Level 129 mmol/L (136-145); Thyroid Stim Hormone (TSH) 0.99 uIU/mL (0.358-3.74)
== END | disposition home or self-care (01) ==
LOC: LAB 14:47
PROVIDERS: PCP Internal Medicine; Referring Provider Nurse Practitioner Gerontology; Visit Provider Nurse Practitioner Gerontology
DX: R53.83 Other fatigue (principal); R06.00 Dyspnea, unspecified
CPT/HCPCS: 36415; 80048; 83880; 84443

== ENCOUNTER → 2023-12-20 | Outpatient (CLI) | payer MEDICARE, MEDICAID, SELFPAY ==
[2021-11-03 12:08] VITALS: BMI 34.9
--- NOTE | 2023-12-20 13:10 | CT_ITS ---
STUDY: LOW DOSE CT LUNG CANCER SCREENING REASON FOR EXAM: Female, 73 years old. smoker, quit 2018. Smoking 1ppd x 40 years. RADIATION DOSAGE (If Supplied By Facility): CTDIvol = ( 4.02 ) mGy, DLP = ( 129.89 ) mGycm TECHNIQUE: No contrast was administered. Low dose technique was utilized (average mAS-38 and kVp 120). 1.25 mm axial source images with a slice interval of 1.25-mm were reconstructed in lung windows. Coronal and sagittal reformats obtained. COMPARISON: CT abdomen and pelvis December 08, 2023 NODULES: No suspicious pulmonary nodules. Parenchyma: No airspace consolidation, effusion, pneumothorax. Mildly elevated left hemidiaphragm. Calcified granulomas in the right upper lobe and left upper lobe. Endobronchial lesion: Mild bilateral peribronchial thickening. No endobronchial lesion. Aorta: Aortic atherosclerosis without ectasia or intramural hematoma. Heart: Calcific coronary atherosclerosis with long left anterior descending stent. No cardiomegaly or pericardial effusion. Pulmonary artery: Unremarkable for noncontrast exam. Mediastinal nodes: Calcified mediastinal or hilar lymph nodes. No suspicious adenopathy. Other chest and abdominal findings: Unremarkable thyroid. Unremarkable esophagus. Calcified hepatic and splenic sequela of prior granulomatous disease. Sequela of prior bilateral anterior rib fractures. CT/Low Dose CT Lung Screening IMPRESSION: No suspicious pulmonary nodules. Lung-RADS category 1 - Continue annual screening with LDCT in 12 months. Thoracic and abdominal calcified sequela of prior granulomatous disease. Mild peribronchial thickening as can be seen with bronchitis/bronchiolitis. Coronary artery disease. IMPORTANT NOTES FOR USE: ACR Lung-RADS Version 1.1 Assessment Categories Release Date: 2018 Category: Coded 0-4 bases on nodule(s) with highest degree of suspicion. Negative screen is defined as categories 1 and 2; a positive screen is defined as categories 3 and 4. Category 3 and 4A nodules that are unchanged on interval CT should be coded as category 2, and individuals returned to screening in 12 months. Category 4X: Category 3 or 4 nodules with additional imaging findings that increase the suspicion of lung cancer, such as spiculation, GGN that doubles in size in 1 year, enlarged lymph notes, etc. Category Modifiers: S (significant finding unrelated to lung cancer) Electronically Signed: Grover Mares MD at 3:59 EDT ,
== END | disposition home or self-care (01) ==
LOC: CT 13:02
PROVIDERS: PCP Internal Medicine; Referring Provider Nurse Practitioner Acute Care; Visit Provider Nurse Practitioner Acute Care
DX: F17.210 Nicotine dependence, cigarettes, uncomplicated (principal)
CPT/HCPCS: 71271

== ENCOUNTER 2023-12-28 10:35 | Emergency (ER) | payer MEDICARE, MEDICAID, SELFPAY ==
[2021-11-03 12:08] VITALS: BMI 34.9
[2023-12-28 10:36] VITALS: BP 148/67; PULSE 74; RESP 20; TEMP 37; O2SAT 97; BMI 41.0
--- NOTE | 2023-12-28 11:06 | EKG12_ITS ---
Test Reason : N/V Blood Pressure : / mmHG Vent. Rate : 064 BPM Atrial Rate : 064 BPM P-R Int : 140 ms QRS Dur : 076 ms QT Int : 414 ms P-R-T Axes : 010 004 049 degrees QTc Int : 427 ms Normal sinus rhythm Normal ECG Confirmed by Raz Yañez ([id number]), managing editor JAVIER COLBY ([id number]) on 12/29/2023 1:09:02 PM Referred By: Confirmed By:Raz Yañez
--- NOTE | 2023-12-28 11:06 | CT_ITS ---
STUDY: CT ABDOMEN AND PELVIS WITHOUT CONTRAST REASON FOR EXAM: Female, 73 years old. Abdominal pain. RADIATION DOSAGE (If Supplied By Facility): CTDIvol = ( 21.32 ) mGy, DLP = ( 1097.51 ) mGycm TECHNIQUE: Transaxial images were obtained from the dome of the diaphragm to the symphysis pubis without oral contrast, and without intravenous contrast. Sagittal and coronal images were reconstructed. Individualized dose optimization techniques were used for this CT. COMPARISON: Prior study dated: 12/08/2023. FINDINGS: Evaluation of the abdominal viscera is limited in the absence of intravenous contrast. Evaluation is further limited by patient motion. LOWER THORAX: The visualized lung bases are clear. The visualized portions of the heart and pericardium are within normal limits. GALLBLADDER / BILE DUCTS: The patient is status post cholecystectomy. The common bile duct is normal in caliber. There are no calcified ductal stones. LIVER: The liver is low in density, consistent with fatty infiltration. There are stable cysts in the liver. There are stable scattered granulomata in the liver. SPLEEN: The spleen is normal in size. There are stable scattered granulomata in the spleen. PANCREAS: The pancreas demonstrates an unremarkable unenhanced appearance. ADRENAL GLANDS: The adrenal glands are within normal limits. KIDNEYS / BLADDER: There are no renal or ureteral stones. There is no hydronephrosis. There are no focal renal lesions identified on this noncontrast exam. The urinary bladder is partially distended and appears grossly unremarkable. STOMACH / BOWEL: Normal visualized stomach. There is no bowel obstruction or inflammation. Again noted are colonic diverticula without evidence of acute diverticulitis. The appendix is visualized and appears normal. There is a stable fat-containing umbilical hernia. There is no bowel containing hernia. PERITONEUM / RETROPERITONEUM: There is no abdominal or pelvic free air, free fluid or fluid collection. There is no abnormal soft tissue mass identified. There is no abdominal or pelvic lymphadenopathy. VESSELS: There are atherosclerotic calcifications noted in the aorta and its branches. The aorta is normal in caliber. The IVC is unremarkable. BONES: There are no destructive osseous lesions. SOFT TISSUES: The visualized soft tissues are within normal limits. CT/Abdomen/Pelvis without Cont IMPRESSION: No acute abdominal or pelvic pathology. Fatty liver. Additional stable nonacute findings, as above. Electronically Signed: Santino Navarrete MD at 12:08 EDT ,
--- NOTE | 2023-12-28 11:09 | EDS_ITS ---
HPI History of Present Illness Chief Complaint: Nausea/Vomiting Informant: patient Onset/Context/Timing Onset: Days (5 days) Context: Gradual Onset Timing: Waxes and wanes Narrative Narrative: Patient presents with a 5-day history of nausea and vomiting. She then developed bilateral flank pain. She did have some night sweats but did not check her temperature to see if she was running a fever. She states that she has not been having bowel movements or passing gas. [facility] Medical History Endotracheally intubated Bilateral pneumonia MARK treated with BiPAP Morbid obesity Diastolic CHF Chest pain Obesity Chronic back pain Anxiety and depression Anemia Thyroid nodule Hepatitis Former smoker Psoriasis Smoking greater than 40 pack years HLD (hyperlipidemia) Back pain Asthma with COPD Type 2 diabetes mellitus Hypertension Atherosclerotic heart disease of [place] coronary artery without angina pectoris Chronic respiratory failure COPD (chronic obstructive pulmonary disease) Home Medications ?Medication ?Instructions ?Recorded ?Last Taken ?Type Handicap Placard #1 ea 12/12/20 Unknown Rx bisacodyl 5 mg tablet,delayed 5 mg PO QHS PRN constipation 30 11/13/21 Unknown Rx release (Dulcolax (bisacodyl)) days #30 tabs pen needle, diabetic 32 gauge x #50 ea 02/11/22 Unknown Rx blood sugar diagnostic (True #100 ea 09/11/22 Unknown Rx Metrix Glucose Test Strip) blood-glucose meter (True Metrix #1 ea 09/11/22 Unknown Rx Glucose Meter) albuterol sulfate 90 mcg/actuation 2 puff inhalation Q6H PRN 11/06/22 Unknown Rx aerosol inhaler shortness of breath or wheezing #18 grams ipratropium 0.5 mg-albuterol 3 mg 3 ml inhalation Q4H PRN PRN SOB 11/10/22 Unknown Rx (2.5 mg base)/3 mL nebulization &/OR WHEEZING #180 mL soln cane #1 ea 11/16/22 Unknown Rx citalopram 40 mg tablet 40 mg PO QHS depression #90 tabs 11/16/22 Unknown Rx isosorbide mononitrate 60 mg 60 mg PO DAILY BP #90 tabs 12/26/22 Unknown Rx tablet,extended release 24 hr nitroglycerin 0.4 mg sublingual 0.4 mg sublingual Q5-15M PRN Pain 12/26/22 Unknown Rx tablet #30 tabs flash glucose sensor (FreeStyle #2 ea 01/06/23 Unknown Rx Emily 2 Sensor kit) atorvastatin 80 mg tablet 80 mg PO QHS cholesterol 01/26/23 Unknown History clopidogrel 75 mg tablet 75 mg PO DAILY blood thinner 01/26/23 Unknown History metoprolol tartrate 25 mg tablet 12.5 mg PO BID blood pressure 01/26/23 Unknown History flash glucose scanning reader #1 ea 03/23/23 Unknown Rx (FreeStyle Emily 2 [place]) ondansetron HCl 4 mg tablet 4 mg PO Q6H PRN nausea and 04/16/23 Unknown Rx vomiting #14 tabs sucralfate 1 gram tablet (Carafate) 1 g PO TID PRN acid reflux #20 tabs 04/16/23 Unknown Rx pantoprazole 40 mg tablet,delayed 40 mg PO BID stomach #180 tabs 05/20/23 Unknown Rx release acetaminophen 500 mg tablet 1,000 mg (2 x 500 mg) PO Q8 pain 7 06/04/23 08/21/23 Rx days #0 tabs insulin lispro 100 unit/mL 2 - 11 unit subcut ACHS diabetes 06/04/23 08/21/23 Rx subcutaneous pen (Humalog KwikPen #0 mL (U-100) Insulin) losartan 25 mg tablet 50 mg (2 x 25 mg) PO DAILY blood 06/04/23 Unknown Rx pressure 30 days #0 tabs aluminum-magnesium hydroxide 225 30 ml PO Q4H PRN UPSET STOMACH 07/23/23 Unknown History mg-200 mg/5 mL oral suspension buspirone 5 mg tablet 7.5 mg PO TID mental health 07/23/23 Unknown History dextrose 40 % oral gel (Glucose 10 g PO Q15M PRN hypoglycemia 07/23/23 Unknown History Gel) therapeutic multivitamin 1 tab PO DAILY vitamin 07/23/23 08/21/23 History budesonide 1 mg/2 mL suspension 0.5 mg inhalation BID breathing 08/13/23 Unknown History for nebulization potassium chloride 20 mEq 20 meq PO BID supplement 08/22/23 Unknown History tablet,extended release prednisone 10 mg tablet 10 mg PO DAILY inflammation 08/22/23 Unknown History trazodone 50 mg tablet 25 mg PO QHS sleep 08/22/23 Unknown History insulin lispro 100 unit/mL 5 unit (0.05 mL) subcut TIDAC #0 mL 08/26/23 Unknown Rx subcutaneous pen (Humalog KwikPen (U-100) Insulin) insulin lispro 100 unit/mL See Protocol subcut ACHS #0 mL 08/26/23 Unknown Rx subcutaneous pen (Humalog KwikPen (U-100) Insulin) sulfamethoxazole 800 1 tab PO BID #14 tabs 12/08/23 Unknown Rx mg-trimethoprim 160 mg tablet (Bactrim DS) alprazolam 0.25 mg tablet 0.25 mg PO QHS PRN 12/18/23 Unknown History dulaglutide 0.75 mg/0.5 mL 0.75 mg subcut QWEEK 12/18/23 Unknown History subcutaneous pen injector fluticasone propionate 50 1 spray intranasal Q12H PRN 12/18/23 Unknown History mcg/actuation nasal spray,suspension (Allergy Relief (fluticasone)) furosemide 20 mg tablet (Lasix) 40 mg PO DAILY diuretic 12/18/23 Unknown History insulin glargine 100 unit/mL (3 30 unit subcut QHS diabetic 12/18/23 Unknown History mL) subcutaneous pen (Basaglar managment KwikPen U-100 Insulin) lidocaine 5 % topical 1 patch topical DAILY 12/18/23 Unknown History patch-adhesive silicone combo pack montelukast 10 mg tablet 10 mg PO QHS 12/18/23 Unknown History (Singulair) sennosides 8.6 mg-docusate sodium 1 tab-cap PO QHS 12/18/23 Unknown History 50 mg tablet (Senna with Docusate Sodium) tizanidine 2 mg capsule (Zanaflex) 2 mg PO Q8H PRN 12/18/23 Unknown History trolamine salicylate 10 % topical 1 applic topical BID PRN 12/18/23 Unknown History cream (Pain Relief (trolamine salicylate)) cephalexin 500 mg capsule 500 mg PO Q12 #14 CAPSULES 12/28/23 Unknown Rx ondansetron 4 mg disintegrating 4 mg PO Q8H PRN PRN Nausea #10 tabs 12/28/23 Unknown Rx tablet polyethylene glycol 3350 17 17 g PO DAILY #119 grams 12/28/23 Unknown Rx gram/dose oral powder (Miralax) Allergy/AdvReac Type Severity Reaction Status Date / Time Iodinated Contrast Media Allergy Severe Anaphylaxis Verified 12/18/23 09:41 amoxicillin (Amoxicillin) Allergy Intermediate Rash Verified 12/18/23 09:41 hydrocodone Allergy Intermediate SWELLING Verified 12/18/23 09:41 gabapentin (From Neurontin) Allergy Shortness Verified 12/18/23 09:41 of breath levofloxacin (From Levaquin) Allergy Hives Verified 12/18/23 09:41 pseudoephedrine HCl (From Allergy Shortness Verified 12/18/23 09:41 Sudafed) of breath red dye Allergy Hives Verified 12/18/23 09:41 prednisone AdvReac Severe mean mood Verified 12/18/23 09:41 clonazepam (From Klonopin) AdvReac Depression Verified 12/18/23 09:41 codeine AdvReac HEADACHE Verified 12/18/23 09:41 Family History Brother Heart disease Mother Colon cancer Heart disease Surgical History History of left heart catheterization (LHC) (~09/23/20) History of cholecystectomy Stented coronary artery (12/28/18) Social History Smoking Status: Former smoker pack-years: 40 how long ago did patient quit smokin year ago alcohol intake: never substance use type: does not use caffeine: Yes Type: carbonated beverages and tea what type of physical activity do you participate in: none ROS ROS ED Constitutional Constitutional ED: Reports sweats; Denies chills or fever(s) Eyes Eyes: Denies change in vision or discharge from eye(s) ENT ENT ED: Denies discharge from eye(s), rhinorrhea or sore throat Cardiovascular Cardiovascular: Denies chest pain or palpitations Respiratory/Chest Respiratory/Chest: Denies cough or dyspnea Gastrointestinal Gastrointestinal: Reports abdominal pain, constipation, nausea and vomiting; Denies diarrhea Genitourinary Genitourinary ED: Denies dysuria Musculoskeletal Musculoskeletal: Denies back pain or extremity pain Integumentary Denies Abrasions or rash Neurologic Neurologic: Denies headache(s) or weakness Psychiatric Psychiatric: Denies anxiety or depression Allergic/Immunologic Allergic/Immunologic ED: Denies lip swelling or urticaria EXAM Physical Exam Const Vital Signs: 12/28/23 10:36 12/28/23 12:35 12/28/23 14:00 Temperature 98.6 F Temperature Source Oral Pulse Rate 74 66 66 Respiratory Rate 20 H 22 H 22 H Blood Pressure 148/67 H 159/84 H Blood Pressure Mean 94 109 Pulse Ox 97 100 100 Oxygen Delivery Method Nasal Cannula Nasal Cannula Nasal Cannula Oxygen Flow Rate (L/min) 4 6 6 Positive well nourished and well developed General Appearance ED: well developed HEENT Reports moist mucous membranes Eyes EOMs intact bilaterally Chest Wall inspection of chest normal and palpation of chest normal Resp Resp Narrative: Mild tachypnea with diminished breath sounds at the bilateral bases. No significant wheezing. Cardio regular rate and regular rhythm GI GI Narrative: Abdomen soft with mild diffuse tenderness. No guarding or rebound. No palpable masses. Hypoactive bowel sounds are present. Extremity normal to inspection Neuro oriented x3 and no sensory deficits noted Psych mental status grossly normal Skin no rashes or lesions noted MDM MDM MDM Narrative Medical decision making narrative: IV line established. EKG obtained to evaluate for cardiac arrhythmia/ischemia. If normal QTc is noted patient will be treated with Zofran for nausea. Labwork obtained to evaluate for leukocytosis, anemia, and electrolyte derangement. CT scan abdomen and pelvis obtained to evaluate for potential bowel obstruction, colitis. History & Record Review Discussion w/independent historian: Patient Additional record(s) reviewed:: Prior ED visit and Prior labs Lab Data Attestation: I reviewed the patient's lab results. Labs: Laboratory Results - last 24 hr 12/28/23 12/28/23 10:40 13:00 WBC 11.6 H RBC 3.59 L Hgb 10.1 L Hct 32.3 L MCV 90.0 MCH 28.1 MCHC 31.3 L RDW Std Deviation 40.8 RDW Coeff of [place] 12.3 Plt Count 337 MPV 10.2 Immature Gran % (Auto) 0.700 Neut % (Auto) 76.6 H Lymph % (Auto) 9.9 L Cache % (Auto) 11.3 H Eos % (Auto) 0.9 Baso % (Auto) 0.6 Absolute Neuts (auto) 8.9 H Absolute Lymphs (auto) 1.15 Nucleated RBC % 0 Sodium 130 L Potassium 3.7 Chloride 94 L Carbon Dioxide 28.0 Anion Gap 8 BUN 9 Creatinine 0.83 Estim Creat Clear Calc 68.46 Est GFR (MDRD) Af Amer 87 Est GFR (MDRD) Non-Af 72 BUN/Creatinine Ratio 10.9 Glucose 124 H Calcium 9.3 Total Bilirubin 0.40 Direct Bilirubin 0.16 AST 16 ALT 20 Alkaline Phosphatase 127 H Total Protein 6.8 Albumin 2.9 L Globulin 3.9 Lipase 15 Urine Color Yellow Urine Clarity Sl. Cloudy Urine pH 5.0 Ur Specific [place] 1.010 Urine Protein 15 H Urine Glucose (UA) Normal Urine Ketones Negative Urine Occult Blood 10 H Urine Nitrite Positive H Urine Bilirubin Negative Urine Urobilinogen Normal Ur Leukocyte Esterase 500 H Urine RBC 0-5 SEEN Urine WBC 25-50 SEEN Ur Squamous Epith Cells 0-5 SEEN Urine Bacteria 4+ Urine Mucus 1+ Radiography Chest X-Ray - ED: 1 View, Read by ED Physician, Chronic Changes and No Infiltrates Diagnostic Testing: Clinical Impression(s) from Imaging Studies Abdomen/Pelvis CT 12/28/23 11:06 IMPRESSION: No acute abdominal or pelvic pathology. Fatty liver. Additional stable nonacute findings, as above. Electronically Signed: Santino Navarrete MD at 12:08 EDT , Chest X-Ray 12/28/23 11:20 IMPRESSION: Cardiomegaly with hyperinflation and no acute or active cardiopulmonary disease. Electronically Signed: Bridger Bautista MD at 12:01 EDT , EKG Initial EKG: Attestation: I personally reviewed and interpreted this EKG as follows: Interpretation: Sinus Rhythm (Sinus rhythm at 64 bpm. No acute ischemia.) Treatment and Re-Evaluation :: CBC reveals white count 11.6 with a hemoglobin of 10.1. 76% neutrophils noted. Chemistry studies reveal a sodium of 130 which is chronic and at baseline for her. Renal function is unremarkable. Glucose is 124. LFTs significant only for an alk phos of 127. Lipase is normal at 15. Urinalysis reveals 4+ bacteria with 25-50 white cells and positive nitrates. Urine is sent for culture and patient given a dose of IV Rocephin. CT scan of the abdomen and pelvis reveals no acute abdominal or pelvic pathology. Portable chest x-ray per my interpretation was chronic changes with no evidence of infiltrate. Radiology interpretation reviewed and agrees. Patient has been given Zofran for nausea. At this time she is able to tolerate p.o. We will treat her with Keflex and Zofran Discharge Plan Triage Chief Complaint: Nausea/Vomiting Other Complaint: Abd Pain ED Provider: Mariah Miller Dx/Rx/DC Orders Clinical Impression: Vomiting, UTI (urinary tract infection) Instructions: ED Diet Vomiting Diarrhea, ED Cystitis Female Adult, ED Vomiting (Adult) Prescriptions: New polyethylene glycol 3350 [Miralax] 17 gram/dose powder 17 g PO DAILY Qty: 119 0RF cephalexin 500 mg capsule 500 mg PO Q12 Qty: 14 0RF ondansetron 4 mg tablet,disintegrating 4 mg PO Q8H PRN PRN (Reason: Nausea) Qty: 10 0RF No Action (DME) Handicap Placard See Rx Instructions .ROUTE .MEDSUPPLY Qty: 1 0RF Rx Instructions: As directed, length of time 3 years citalopram 40 mg tablet 40 mg PO QHS Qty: 90 3RF (DME) cane Device See Rx Instructions .Route Qty: 1 0RF Rx Instructions: As directed pantoprazole 40 mg tablet,delayed release (DR/EC) 40 mg PO BID Qty: 180 2RF therapeutic multivitamin Tablet 1 tab PO DAILY dextrose [Glucose Gel] 40 % gel 10 g PO Q15M PRN (Reason: hypoglycemia) Rx Instructions: until symptoms of low blood sugar are controlled buspirone 5 mg tablet 7.5 mg PO TID aluminum-magnesium hydroxide 225-200 mg/5 mL suspension 30 ml PO Q4H PRN (Reason: UPSET STOMACH) budesonide 1 mg/2 mL suspension for nebulization 0.5 mg inhalation BID insulin glargine [Basaglar KwikPen U-100 Insulin] 100 unit/mL (3 mL) insulin pen 30 unit subcut QHS Rx Instructions: daily at bedtime alprazolam 0.25 mg tablet 0.25 mg PO QHS PRN trolamine salicylate [Pain Relief (trolamine salicy)] 10 % cream 1 applic topical BID PRN fluticasone propionate [Allergy Relief (fluticasone)] 50 mcg/actuation spray,suspension 1 spray intranasal Q12H PRN Rx Instructions: administer into each nostril lidocaine-silicone, adhesive 5 % combo pack 1 patch topical DAILY Rx Instructions: leave on most painful area for up to 12 hrs montelukast [Singulair] 10 mg tablet 10 mg PO QHS sennosides-docusate sodium [Senna with Docusate Sodium] 8.6-50 mg tablet 1 tab-cap PO QHS dulaglutide 0.75 mg/0.5 mL pen injector 0.75 mg subcut QWEEK tizanidine [Zanaflex] 2 mg capsule 2 mg PO Q8H PRN isosorbide mononitrate 60 mg tablet extended release 24 hr 60 mg PO DAILY Qty: 90 3RF nitroglycerin 0.4 mg tablet, sublingual 0.4 mg SUBLINGUAL Q5-15M PRN (Reason: Pain) Qty: 30 0RF atorvastatin 80 mg tablet 80 mg PO QHS clopidogrel 75 mg tablet 75 mg PO DAILY metoprolol tartrate 25 mg tablet 12.5 mg PO BID Rx Instructions: furosemide [Lasix] 20 mg tablet 40 mg PO DAILY sucralfate [Carafate] 1 gram tablet 1 g PO TID PRN (Reason: acid reflux) Qty: 20 0RF ondansetron HCl 4 mg tablet 4 mg PO Q6H PRN (Reason: nausea and vomiting) Qty: 14 0RF acetaminophen 500 mg Tablet 1,000 mg PO Q8 7 Days Qty: 0 0RF insulin lispro [Humalog KwikPen Insulin] 100 unit/mL Insulin Pen 2 - 11 unit subcut ACHS Qty: 0 0RF Protocol: 4. Sliding Scale Insulin High-Med Dosing Condition: 150-199 mg/dl = 2 units Condition: 200-259 mg/dl = 4 units Condition: 260-324 mg/dl = 6 units Condition: 325-374 mg/dl = 8 units Condition: 375-409 mg/dl = 10 units Condition: 410-449 mg/dl = 11 units Condition: Greater than 449 call physician Protocol Text: - Use for Total Daily Dose of Insulin 56-80 units - Patient who are insulin resistant or septic HIGH MEDIUM DOSING ALGORITHM losartan 25 mg tablet 50 mg PO DAILY 30 Days Qty: 0 0RF prednisone 10 mg tablet 10 mg PO DAILY trazodone 50 mg tablet 25 mg PO QHS potassium chloride 20 mEq tablet extended release 20 meq PO BID insulin lispro [Humalog KwikPen Insulin] 100 unit/mL Insulin Pen 5 unit subcut TIDAC Qty: 0 0RF insulin lispro [Humalog KwikPen Insulin] 100 unit/mL Insulin Pen See Protocol subcut ACHS Qty: 0 0RF Protocol: 5. Sliding Scale Insulin High Dosing Condition: 150-209 mg/dl = 3 units Condition: 210-259 mg/dl = 6 units Condition: 260-324 mg/dl = 9 units Condition: 325-374 mg/dl = 12 units Condition: 375-409 mg/dl = 14 units Condition: 410-449 mg/dl = 16 units Condition: Greater than 449 call physician Protocol Text: - Use for Total Daily Dose of Insulin 81-120 units - Very insulin resistant or septic patients HIGH DOSING ALGORITHM sulfamethoxazole-trimethoprim [Bactrim DS] 800-160 mg tablet 1 tab PO BID Qty: 14 0RF bisacodyl [Dulcolax (bisacodyl)] 5 mg tablet,delayed release (DR/EC) 5 mg PO QHS PRN (Reason: constipation) 30 Days Qty: 30 3RF (DME) pen needle, diabetic 32 gauge x 5/32 needle See Rx Instructions .ROUTE .MEDSUPPLY Qty: 50 0RF Rx Instructions: 4x/day (DME) blood-glucose meter [True Metrix Glucose Meter] [facility] See Rx Instructions .Route Qty: 1 0RF Rx Instructions: As directed (DME) True Metrix Glucose Test Strip Strip See Rx Instructions .Route Qty: 100 7RF Rx Instructions: tid albuterol sulfate 90 mcg/actuation HFA aerosol inhaler 2 puff INHALATION Q6H PRN (Reason: shortness of breath or wheezing) Qty: 18 3RF ipratropium-albuterol 0.5 mg-3 mg(2.5 mg base)/3 mL solution for nebulization 3 ml INHALATION Q4H PRN PRN (Reason: SOB &/OR WHEEZING) Qty: 180 6RF (DME) FreeStyle Emily 2 Sensor Kit See Rx Instructions .ROUTE .MEDSUPPLY Qty: 2 3RF Rx Instructions: As directed (DME) FreeStyle Emily 2 [place] Misc See Rx Instructions .ROUTE .MEDSUPPLY Qty: 1 0RF Rx Instructions: As directed Primary Care Provider: Brittney Cochran Referrals: Brittney Cochran MD [Primary Care Provider] - 3-5 Days if not improving Print Language: [place] Disposition Disposition: Assisted Living Discharge Location: [facility]
[2023-12-28 11:16] LABS: Absolute Lymphocyte Count 1.15 X10^3/uL (0.83-4.51); Absolute Neutrophil Count 8.9 X10^3/uL (2.0-7.7); Basophil# 0.07 X10^3/uL; Basophil% 0.6 % (0-1); Eosinophils% 0.9 % (0-5); Hematocrit 32.3 % (37-47); Hemoglobin 10.1 g/dL (12.0-15.0); Lymphocyte # 1.15 X10^3/ul (0.83-4.51); Lymphocyte % 9.9 % (19-41); Mean Corp Hgb Conc 31.3 g/dL (32-36); Mean Corpuscular Hgb 28.1 pg (27.0-32.0); Mean Platelet Vol. 10.2 fl (6.2-12.0); Monocyte# 1.31 X10^3/uL; Monocyte% 11.3 % (0-10); NRBC Flagged by Analyzer 0 % (0-5); Neutrophil # 8.92 X10^3/uL (2.7-7.7); Neutrophil % 76.6 % (47-70); Platelet Count 337 K/mm3 (150-450); RBC Distribution Width CV 12.3 % (11.6-14.6); RBC Distribution Width SD 40.8 fl (35.1-43.9); Red Blood Count 3.59 M/mm3 (4.2-5.4); White Blood Count 11.6 K/mm3 (4.4-11.0)
--- NOTE | 2023-12-28 11:20 | RAD_ITS ---
STUDY: X-RAY CHEST REASON FOR EXAM: Female, 73 years old. Shortness of breath. TECHNIQUE: Single frontal view of the chest. COMPARISON: August 25, 2023. FINDINGS: Hyperinflation of the right lung. Patchy opacity at the left base in the prior study has resolved. There is no demonstrated pleural abnormality. Stable cardiomegaly. Normal mediastinum and wallace. Normal visualized pulmonary arteries. Aortic tortuosity with calcification unchanged. No abnormality of the visualized soft tissue structures of the upper abdomen. RAD/Chest 1 View (Portable) IMPRESSION: Cardiomegaly with hyperinflation and no acute or active cardiopulmonary disease. Electronically Signed: Bridger Bautista MD at 12:01 EDT ,
[2023-12-28 11:29] LABS: AST(SGOT) 16 U/L (15-37); Alanine Aminotransfer ALT/SGPT 20 U/L (13-56); Albumin, Serum 2.9 g/dL (3.2-5.0); Alkaline Phosphatase 127 U/L (45-117); Anion Gap 8 (5-15); BUN 9 mg/dL (7-18); BUN/Creat Ratio 10.9 RATIO (10-20); Bilirubin, Direct 0.16 mg/dL (0.00-0.30); Calcium,Total 9.3 mg/dL (8.5-10.1); Chloride 94 mmol/L (98-107); Creatinine, Serum 0.83 mg/dL (0.55-1.02); EST Glomerular Filtration Rate 72 mL/min (>60); Est Glom Filt Rate - Afr Amer 87 mL/min (>60); Estimated Creatinine Clearance 68.46 ml/min; Globulin 3.9 g/dL (2.2-4.2); Glucose 124 mg/dL (74-106); Lipase 15 U/L (13-75); Potassium 3.7 mmol/L (3.5-5.1); Protein, Total 6.8 g/dL (6.4-8.2); Sodium Level 130 mmol/L (136-145)
[2023-12-28 12:35] VITALS: PULSE 66; RESP 22; O2SAT 100
[2023-12-28 13:07] LABS: Color, Urine Yellow (Yellow); Glucose, Dipstick Normal (Normal); Ketone-Dipstick Negative (Negative); Leukocyte Esterase-Dipstick 500 /ul (Negative); Nitrite-Dipstick Positive (Negative); Occult Blood-Urine 10 /ul (Negative); Protein-Dipstick 15 mg/dl (Negative); Urine Bilirubin Dipstick Negative (Negative); Urine Clarity Sl. Cloudy (Clear); Urine Urobilinogen Normal (Normal)
[2023-12-28 13:23] LABS: Bacteria 4+ /hpf (None Seen); Mucous, Urine 1+ /hpf (<or=2+); Red Blood Cells-Urine 0-5 SEEN /hpf (0-5); Squamous Epithelial Cells - UA 0-5 SEEN /hpf (5-10); White Blood Cells 25-50 SEEN /hpf (0-5)
[2023-12-28] MEDS: Ondansetron 4 MG/2 ML Vial IV (13:40)
[2023-12-28] MEDS: Ceftriaxone 1 GM/50 ML BAG IV (13:40)
[2023-12-28 14:00] VITALS: BP 159/84; PULSE 66; RESP 22; O2SAT 100
[2023-12-28] MEDS: Ipratropium/Albuterol Sulfate 3 ML AMPUL.NEB INHALATION (15:13)
[2023-12-28 15:14] VITALS: PULSE 70; RESP 22; O2SAT 99
[2023-12-28 16:00] VITALS: BP 153/67; PULSE 77; RESP 20; TEMP 37.1; O2SAT 97
== END 2023-12-28 17:00 | disposition home or self-care (01) ==
PROVIDERS: Emergency Provider Emergency Medicine; PCP Internal Medicine; Visit Provider Emergency Medicine
DX: R11.2 Nausea with vomiting, unspecified (principal); J44.9 Chronic obstructive pulmonary disease, unspecified; E11.9 Type 2 diabetes mellitus without complications; Z87.891 Personal history of nicotine dependence; N39.0 Urinary tract infection, site not specified; E78.5 Hyperlipidemia, unspecified; I10 Essential (primary) hypertension; I25.10 Atherosclerotic heart disease of native coronary artery without angina pectoris
CPT/HCPCS: 71045; 74176; 80048; 80076; 81001; 83690; 85025; 87077; 87086; 87088; 87186; 93005; 94640; 96365; 96375; 99283; A4216; J2405

== ENCOUNTER → 2023-12-29 | Outpatient (REF) | payer MEDICARE, SELFPAY ==
[2021-11-03 12:08] VITALS: BMI 34.9
[2023-12-29 07:17] LABS: Hematocrit 30.4 % (37-47); Hemoglobin 9.4 g/dL (12.0-15.0); Mean Corp Hgb Conc 30.9 g/dL (32-36); Mean Corpuscular Hgb 28.3 pg (27.0-32.0); Mean Corpuscular Volume 91.6 fL (81-99); Mean Platelet Vol. 10.3 fl (6.2-12.0); Platelet Count 313 K/mm3 (150-450); RBC Distribution Width CV 12.4 % (11.6-14.6); RBC Distribution Width SD 41.7 fl (35.1-43.9); Red Blood Count 3.32 M/mm3 (4.2-5.4); White Blood Count 9.3 K/mm3 (4.4-11.0)
[2023-12-29 07:40] LABS: ALB/GLOB Ratio 0.7 RATIO (0.9-2.4); AST(SGOT) 17 U/L (15-37); Alanine Aminotransfer ALT/SGPT 18 U/L (13-56); Albumin, Serum 2.6 g/dL (3.2-5.0); Alkaline Phosphatase 119 U/L (45-117); Anion Gap 4 (5-15); BUN 10 mg/dL (7-18); BUN/Creat Ratio 11.8 RATIO (10-20); Calcium,Total 9.6 mg/dL (8.5-10.1); Chloride 98 mmol/L (98-107); Creatinine, Serum 0.85 mg/dL (0.55-1.02); EST Glomerular Filtration Rate 70 mL/min (>60); Est Glom Filt Rate - Afr Amer 85 mL/min (>60); Globulin 3.6 g/dL (2.2-4.2); Glucose 93 mg/dL (74-106); Potassium 3.9 mmol/L (3.5-5.1); Protein, Total 6.2 g/dL (6.4-8.2); Sodium Level 134 mmol/L (136-145)
[2024-01-04 11:16] LABS: Hemoglobin A1c 7.2 % (3.8-5.6)
== END ==
LOC: OLS.SWAL 05:00
PROVIDERS: PCP Internal Medicine; Visit Provider Internal Medicine
DX: E11.69 Type 2 diabetes mellitus with other specified complication (principal)
CPT/HCPCS: 36415; 80053; 83036; 85027

== ENCOUNTER → 2023-12-31 | Outpatient (REF) | payer MEDICARE, MEDICAID, SELFPAY ==
[2021-11-03 12:08] VITALS: BMI 34.9
[2023-12-31 09:44] LABS: Thyroid Stim Hormone (TSH) 2.62 uIU/mL (0.358-3.74)
== END ==
LOC: OLS.SWAL 05:00
PROVIDERS: PCP Internal Medicine; Visit Provider Internal Medicine
DX: I48.91 Unspecified atrial fibrillation (principal); J44.9 Chronic obstructive pulmonary disease, unspecified; I11.0 Hypertensive heart disease with heart failure; I50.32 Chronic diastolic (congestive) heart failure
CPT/HCPCS: 36415; 83880; 84443

== ENCOUNTER → 2024-01-05 04:00 | Outpatient (REF) | payer MEDICARE, MEDICAID, SELFPAY ==
[2021-11-03 12:08] VITALS: BMI 34.9
[2024-01-05 09:44] LABS: Hemoglobin A1c 7.2 % (3.8-5.6)
== END ==
LOC: OLS.SWAL 04:00
PROVIDERS: PCP Internal Medicine; Referring Provider Internal Medicine; Visit Provider Internal Medicine
DX: E11.9 Type 2 diabetes mellitus without complications (principal)
CPT/HCPCS: 36415; 83036

== ENCOUNTER → 2024-01-13 | Outpatient (CLI) | payer MEDICARE, MEDICAID, SELFPAY ==
[2021-11-03 12:08] VITALS: BMI 34.9
[2024-01-13 14:53] LABS: Mucous, Urine 0 SEEN /hpf (<or=2+); Red Blood Cells-Urine 0 SEEN /hpf (0-5)
[2024-01-13 16:58] LABS: Color, Urine Straw (Yellow); Glucose, Dipstick Normal (Normal); Ketone-Dipstick Negative (Negative); Leukocyte Esterase-Dipstick 100 /ul (Negative); Nitrite-Dipstick Negative (Negative); Occult Blood-Urine Negative /ul (Negative); Protein-Dipstick Negative (Negative); Urine Bilirubin Dipstick Negative (Negative); Urine Clarity Clear (Clear); Urine Urobilinogen Normal (Normal)
[2024-01-13 17:16] LABS: Bacteria 1+ /hpf (None Seen); Squamous Epithelial Cells - UA 0-5 SEEN /hpf (5-10); White Blood Cells 5-10 SEEN /hpf (0-5)
[2024-01-14 19:04] LABS: Creatinine, Urine (random) < 13.00 mg/dL (NO RANGE EST.); Microalbumin,Random Urine < 5.0 mg/L (NO RANGE EST.)
== END | disposition home or self-care (01) ==
LOC: BIMLAB 14:52
PROVIDERS: PCP Internal Medicine; Referring Provider Internal Medicine; Visit Provider Internal Medicine
DX: N39.0 Urinary tract infection, site not specified (principal); E11.65 Type 2 diabetes mellitus with hyperglycemia; Z79.4 Long term (current) use of insulin
CPT/HCPCS: 81001; 82043; 82570; 87086; 87088; 87186

== ENCOUNTER → 2024-02-08 05:00 | Outpatient (REF) | payer MEDICARE, MEDICAID, SELFPAY ==
[2021-11-03 12:08] VITALS: BMI 34.9
[2024-02-08 08:43] LABS: Hematocrit 31.1 % (37-47); Hemoglobin 9.9 g/dL (12.0-15.0); Mean Corp Hgb Conc 31.8 g/dL (32-36); Mean Corpuscular Hgb 28.1 pg (27.0-32.0); Mean Corpuscular Volume 88.4 fL (81-99); Mean Platelet Vol. 10.3 fl (6.2-12.0); Platelet Count 340 K/mm3 (150-450); RBC Distribution Width CV 13.1 % (11.6-14.6); RBC Distribution Width SD 42.1 fl (35.1-43.9); Red Blood Count 3.52 M/mm3 (4.2-5.4); White Blood Count 12.8 K/mm3 (4.4-11.0)
[2024-02-08 08:46] LABS: ALB/GLOB Ratio 0.9 RATIO (0.9-2.4); AST(SGOT) 10 U/L (15-37); Alanine Aminotransfer ALT/SGPT 23 U/L (13-56); Albumin, Serum 2.9 g/dL (3.2-5.0); Alkaline Phosphatase 124 U/L (45-117); Anion Gap 6 (5-15); BUN 9 mg/dL (7-18); BUN/Creat Ratio 12.3 RATIO (10-20); Calcium,Total 9.4 mg/dL (8.5-10.1); Chloride 96 mmol/L (98-107); Creatinine, Serum 0.73 mg/dL (0.55-1.02); EST Glomerular Filtration Rate 83 mL/min (>60); Est Glom Filt Rate - Afr Amer 100 mL/min (>60); Globulin 3.4 g/dL (2.2-4.2); Glucose 96 mg/dL (74-106); Potassium 4.3 mmol/L (3.5-5.1); Protein, Total 6.3 g/dL (6.4-8.2); Sodium Level 133 mmol/L (136-145)
== END ==
LOC: OLS.SWAL 05:00
PROVIDERS: PCP Internal Medicine; Visit Provider Internal Medicine
DX: J44.1 Chronic obstructive pulmonary disease with (acute) exacerbation (principal); E11.69 Type 2 diabetes mellitus with other specified complication; D64.9 Anemia, unspecified
CPT/HCPCS: 36415; 80053; 85027

== ENCOUNTER → 2024-02-29 | Outpatient (REF) | payer MEDICARE, MEDICAID, SELFPAY ==
[2021-11-03 12:08] VITALS: BMI 34.9
[2024-02-29 09:52] LABS: Hematocrit 31.1 % (37-47); Hemoglobin 9.9 g/dL (12.0-15.0); Mean Corp Hgb Conc 31.8 g/dL (32-36); Mean Corpuscular Hgb 28.1 pg (27.0-32.0); Mean Corpuscular Volume 88.4 fL (81-99); Mean Platelet Vol. 10.6 fl (6.2-12.0); Platelet Count 332 K/mm3 (150-450); RBC Distribution Width CV 13.4 % (11.6-14.6); RBC Distribution Width SD 43.4 fl (35.1-43.9); Red Blood Count 3.52 M/mm3 (4.2-5.4); White Blood Count 11.7 K/mm3 (4.4-11.0)
[2024-02-29 10:21] LABS: ALB/GLOB Ratio 0.9 RATIO (0.9-2.4); AST(SGOT) 11 U/L (15-37); Alanine Aminotransfer ALT/SGPT 23 U/L (13-56); Albumin, Serum 3.1 g/dL (3.2-5.0); Alkaline Phosphatase 108 U/L (45-117); Anion Gap 5 (5-15); BUN 11 mg/dL (7-18); BUN/Creat Ratio 13.6 RATIO (10-20); Calcium,Total 9.6 mg/dL (8.5-10.1); Chloride 96 mmol/L (98-107); Creatinine, Serum 0.81 mg/dL (0.55-1.02); EST Glomerular Filtration Rate 74 mL/min (>60); Est Glom Filt Rate - Afr Amer 89 mL/min (>60); Globulin 3.3 g/dL (2.2-4.2); Glucose 79 mg/dL (74-106); Potassium 3.7 mmol/L (3.5-5.1); Protein, Total 6.4 g/dL (6.4-8.2); Sodium Level 132 mmol/L (136-145)
== END ==
LOC: OLS.SWAL 05:00
PROVIDERS: PCP Internal Medicine; Referring Provider Internal Medicine; Visit Provider Internal Medicine
DX: D64.9 Anemia, unspecified (principal); J44.9 Chronic obstructive pulmonary disease, unspecified; E78.5 Hyperlipidemia, unspecified; E11.69 Type 2 diabetes mellitus with other specified complication
CPT/HCPCS: 36415; 80053; 85027

== ENCOUNTER → 2024-03-09 | Outpatient (CLI) | payer MEDICARE, MEDICAID, SELFPAY ==
[2021-11-03 12:08] VITALS: BMI 34.9
[2024-03-09 13:49] VITALS: PULSE 66; PULSE 67; PULSE 69; PULSE 76; PULSE 77; O2SAT 92; O2SAT 94; O2SAT 95; O2SAT 96; O2SAT 97; O2SAT 98
--- NOTE | 2024-03-09 14:14 | CPS ---
Patient came in wearing 4 lpm pulse dose, states that she wears that all the time. Had patient take off her oxygen for 10 minutes, SpO2 94%. Started walk test on room air. Patient walked about 80 ft in the 2 minutes without any breaks. Patient then stated that she felt like her legs were going to give out. Patient sat in wheelchair recovering until the 4th minute when she stated that she felt like she could start walking again. Patient walked another 50 ft before feeling dizzy and needed to stop.
--- NOTE | 2024-03-10 10:21 | WT_ITS ---
PSN 6 Minute Walk Test 6 Minute Walk Test 6 Minute Walk Test: 6 Minute Walk Test PSN:6-Minute Walk Test Start: 03/09/24 13:49 Freq: Status: Active Protocol: [id number].[id number] Document 03/09/24 13:49 JHON (Rec: 03/09/24 14:17 JHON [id number]) 6 Minute Walk Test Date Performed 03/09/24 Time Performed 12:45 Height 5 ft 2 in Weight: 211 lb Weight in Pounds 211.[address]: Michelle Givens [employer]ACH[employer] Assistive device used: None Pre-test Oxygen Delivery Method Room Air Pulse Ox (%) 94 Pulse Rate (60-100 beats/min) 69 Dyspnea Luke Scale (0-10) 0 Exertion Luke Scale (6-20) 6 1st minute Oxygen Delivery Method Room Air Pulse Ox (%) 94 Pulse Rate (60-100 beats/min) 76 2nd minute Oxygen Delivery Method Room Air Pulse Ox (%) 92 Pulse Rate (60-100 beats/min) 77 Dyspnea Luke Scale (0-10) 4 Number of Rests Taken 1 3rd minute Oxygen Delivery Method Room Air Pulse Ox (%) 97 Pulse Rate (60-100 beats/min) 67 Number of Rests Taken 1 4th minute Oxygen Delivery Method Room Air Pulse Ox (%) 98 Pulse Rate (60-100 beats/min) 66 5th minute Oxygen Delivery Method Room Air Pulse Ox (%) 96 Pulse Rate (60-100 beats/min) 69 Number of Rests Taken 1 Reported Symptoms Dizziness 6th minute Oxygen Delivery Method Room Air Pulse Ox (%) 95 Pulse Rate (60-100 beats/min) 67 Dyspnea Luke Scale (0-10) 5 Exertion Luke Scale (6-20) 14 Number of Rests Taken 1 Reported Symptoms Dizziness Post-test Oxygen Delivery Method Room Air Pulse Ox (%) 96 Pulse Rate (60-100 beats/min) 67 Full Laps Walked 2 Partial Lap, Number of Tiles Walked 15 Total Distance Walked (ft) 133 03/09/24 14:14 Cardiopulmonary Services by Destinee Nichols Patient came in wearing 4 lpm pulse dose, states that she wears that all the time. Had patient take off her oxygen for 10 minutes, SpO2 94%. Started walk test on room air. Patient walked about 80 ft in the 2 minutes without any breaks. Patient then stated that she felt like her legs were going to give out. Patient sat in wheelchair recovering until the 4th minute when she stated that she felt like she could start walking again. Patient walked another 50 ft before feeling dizzy and needed to stop. Initialized on 03/09/24 14:14 - END OF NOTE Interpretation Interpretation: The patient ambulated 133 feet over the course of 6 minutes beginning on room air without assistive devices. Pretesting oxygen saturation was noted to be 94% on room air. With ambulation, the susan oxygen saturation was 92%. Although there was no significant exertional oxygen desaturation, there was significantly impaired walk distance. Recommendations Recommendations: There is no indication for the use of supplemental oxygen at this time.
== END | disposition home or self-care (01) ==
PROVIDERS: PCP Internal Medicine; Referring Provider Nurse Practitioner Acute Care; Visit Provider Nurse Practitioner Acute Care
DX: J96.11 Chronic respiratory failure with hypoxia (principal)
CPT/HCPCS: 94618

== ENCOUNTER → 2024-03-22 | Outpatient (REF) | payer MEDICARE, MEDICAID, SELFPAY ==
[2021-11-03 12:08] VITALS: BMI 34.9
[2024-03-22 08:20] LABS: Mean Corp Hgb Conc 31.4 g/dL (32-36); Mean Corpuscular Hgb 28.4 pg (27.0-32.0); Mean Corpuscular Volume 90.4 fL (81-99); Mean Platelet Vol. 10.8 fl (6.2-12.0); Platelet Count 343 K/mm3 (150-450); RBC Distribution Width CV 13.4 % (11.6-14.6); Red Blood Count 3.87 M/mm3 (4.2-5.4); White Blood Count 11.7 K/mm3 (4.4-11.0)
[2024-03-22 08:57] LABS: ALB/GLOB Ratio 0.9 RATIO (0.9-2.4); AST(SGOT) 10 U/L (15-37); Alanine Aminotransfer ALT/SGPT 20 U/L (13-56); Albumin, Serum 3.3 g/dL (3.2-5.0); Alkaline Phosphatase 110 U/L (45-117); Anion Gap 7 (5-15); BUN 14 mg/dL (7-18); BUN/Creat Ratio 17.6 RATIO (10-20); Chloride 97 mmol/L (98-107); EST Glomerular Filtration Rate 75 mL/min (>60); Est Glom Filt Rate - Afr Amer 91 mL/min (>60); Globulin 3.5 g/dL (2.2-4.2); Glucose 101 mg/dL (74-106); Potassium 4.2 mmol/L (3.5-5.1); Protein, Total 6.8 g/dL (6.4-8.2); Sodium Level 135 mmol/L (136-145)
== END ==
LOC: OLS.SWAL 05:00
PROVIDERS: PCP Internal Medicine; Visit Provider Internal Medicine
DX: D64.9 Anemia, unspecified (principal); J44.9 Chronic obstructive pulmonary disease, unspecified; E78.5 Hyperlipidemia, unspecified; E11.69 Type 2 diabetes mellitus with other specified complication
CPT/HCPCS: 36415; 80053; 85027

== ENCOUNTER → 2024-04-05 05:00 | Outpatient (REF) | payer MEDICARE, MEDICAID, SELFPAY ==
[2021-11-03 12:08] VITALS: BMI 34.9
[2024-04-05 14:21] LABS: Hemoglobin A1c 6.7 % (3.8-5.6)
== END ==
LOC: OLS.SWAL 05:00
PROVIDERS: PCP Internal Medicine; Visit Provider Internal Medicine
DX: E11.9 Type 2 diabetes mellitus without complications (principal)
CPT/HCPCS: 36415; 83036

== ENCOUNTER → 2024-04-05 12:00 | Outpatient (REF) | payer MEDICARE, MEDICAID, SELFPAY ==
[2021-11-03 12:08] VITALS: BMI 34.9
[2024-04-06 08:02] LABS: Bacteria 0 SEEN /hpf (None Seen); Mucous, Urine 0 SEEN /hpf (<or=2+); Squamous Epithelial Cells - UA 0 SEEN /hpf (5-10)
[2024-04-06 08:30] LABS: Color, Urine Yellow (Yellow); Glucose, Dipstick Normal (Normal); Ketone-Dipstick Negative (Negative); Leukocyte Esterase-Dipstick 500 /ul (Negative); Nitrite-Dipstick Negative (Negative); Occult Blood-Urine 25 /ul (Negative); Protein-Dipstick 30 mg/dl (Negative); Specific Gravity, Urine 1.015 (1.002-1.030); Urine Bilirubin Dipstick Negative (Negative); Urine Clarity Clear (Clear); Urine Urobilinogen Normal (Normal)
[2024-04-06 08:53] LABS: Red Blood Cells-Urine 25-50 SEEN /hpf (0-5); White Blood Cells 50-100 SEEN /hpf (0-5)
== END ==
LOC: OLS.SWAL 12:00
PROVIDERS: PCP Internal Medicine; Visit Provider Internal Medicine
DX: N39.0 Urinary tract infection, site not specified (principal)
CPT/HCPCS: 81001; 87086; 87088; 87186

== ENCOUNTER → 2024-04-12 05:00 | Outpatient (REF) | payer MEDICARE, MEDICAID, SELFPAY ==
[2021-11-03 12:08] VITALS: BMI 34.9
[2024-04-12 09:17] LABS: Hematocrit 33.7 % (37-47); Hemoglobin 10.6 g/dL (12.0-15.0); Mean Corp Hgb Conc 31.5 g/dL (32-36); Mean Corpuscular Volume 89.2 fL (81-99); Mean Platelet Vol. 10.2 fl (6.2-12.0); Platelet Count 371 K/mm3 (150-450); RBC Distribution Width CV 12.9 % (11.6-14.6); RBC Distribution Width SD 41.7 fl (35.1-43.9); Red Blood Count 3.78 M/mm3 (4.2-5.4); White Blood Count 13.9 K/mm3 (4.4-11.0)
[2024-04-12 09:42] LABS: ALB/GLOB Ratio 0.9 RATIO (0.9-2.4); AST(SGOT) 12 U/L (15-37); Alanine Aminotransfer ALT/SGPT 22 U/L (13-56); Albumin, Serum 3.2 g/dL (3.2-5.0); Alkaline Phosphatase 117 U/L (45-117); Anion Gap 4 (5-15); BUN 10 mg/dL (7-18); BUN/Creat Ratio 11.9 RATIO (10-20); Chloride 95 mmol/L (98-107); Creatinine, Serum 0.84 mg/dL (0.55-1.02); EST Glomerular Filtration Rate 71 mL/min (>60); Est Glom Filt Rate - Afr Amer 85 mL/min (>60); Globulin 3.6 g/dL (2.2-4.2); Glucose 95 mg/dL (74-106); Potassium 4.7 mmol/L (3.5-5.1); Protein, Total 6.8 g/dL (6.4-8.2); Sodium Level 131 mmol/L (136-145)
== END ==
LOC: OLS.SWAL 05:00
PROVIDERS: PCP Internal Medicine; Visit Provider Internal Medicine
DX: D64.9 Anemia, unspecified (principal); J44.9 Chronic obstructive pulmonary disease, unspecified; E78.5 Hyperlipidemia, unspecified; E11.9 Type 2 diabetes mellitus without complications
CPT/HCPCS: 36415; 80053; 85027

== ENCOUNTER 2024-06-04 19:23 | Emergency (ER) | payer MEDICARE, MEDICAID, SELFPAY ==
[2021-11-03 12:08] VITALS: BMI 34.9
[2024-06-04 19:26] VITALS: BP 115/83; PULSE 95; RESP 19; TEMP 36.8; O2SAT 98; BMI 39.2
--- NOTE | 2024-06-04 19:37 | ED.VIS.GI ---
HPI HPI - GI History of Present Illness Chief Complaint: Constipation Informant: patient and EMS Narrative Narrative: 73-[facility]-old [place] [facility] patient has not been able to have a bowel movement for 4 days, like she needs to, will try to disimpact herself at the [place] [facility], nurses purely tried to disimpact her and could not and for that reason they sent her to the ER for disimpaction. The patient states she has had some right-sided abdominal pain for the last 2 days. Little nausea no vomiting. No fevers or chills. No blood. She now is feeling like she needs to urinate but is unable. [facility] Medical History Chronic constipation Insomnia Endotracheally intubated Bilateral pneumonia MARK treated with BiPAP Morbid obesity Diastolic CHF Chest pain Obesity Chronic back pain Anxiety and depression Anemia Thyroid nodule Hepatitis Former smoker Psoriasis Smoking greater than 40 pack years HLD (hyperlipidemia) Back pain Asthma with COPD Type 2 diabetes mellitus Hypertension Atherosclerotic heart disease of [place] coronary artery without angina pectoris Chronic respiratory failure COPD (chronic obstructive pulmonary disease) Home Medications ?Medication ?Instructions ?Recorded ?Last Taken ?Type Handicap Placard #1 ea 12/12/20 Unknown Rx bisacodyl 5 mg tablet,delayed 5 mg PO QHS PRN constipation 30 11/13/21 Unknown Rx release (Dulcolax (bisacodyl)) days #30 tabs pen needle, diabetic 32 gauge x #50 ea 02/11/22 Unknown Rx /32 blood sugar diagnostic (True #100 ea 09/11/22 Unknown Rx Metrix Glucose Test Strip) blood-glucose meter (True Metrix #1 ea 09/11/22 Unknown Rx Glucose Meter) albuterol sulfate 90 mcg/actuation 2 puff inhalation Q6H PRN 11/06/22 Unknown Rx aerosol inhaler shortness of breath or wheezing #18 grams ipratropium 0.5 mg-albuterol 3 mg 3 ml inhalation Q4H PRN PRN SOB 11/10/22 Unknown Rx (2.5 mg base)/3 mL nebulization &/OR WHEEZING #180 mL soln cane #1 ea 11/16/22 Unknown Rx citalopram 40 mg tablet 40 mg PO QHS depression #90 tabs 11/16/22 Unknown Rx isosorbide mononitrate 60 mg 60 mg PO DAILY BP #90 tabs 12/26/22 Unknown Rx tablet,extended release 24 hr nitroglycerin 0.4 mg sublingual 0.4 mg sublingual Q5-15M PRN Pain 12/26/22 Unknown Rx tablet #30 tabs flash glucose sensor (FreeStyle #2 ea 01/06/23 Unknown Rx Emily 2 Sensor kit) atorvastatin 80 mg tablet 80 mg PO QHS cholesterol 01/26/23 Unknown History clopidogrel 75 mg tablet 75 mg PO DAILY blood thinner 01/26/23 Unknown History metoprolol tartrate 25 mg tablet 12.5 mg PO BID blood pressure 01/26/23 Unknown History flash glucose scanning reader #1 ea 03/23/23 Unknown Rx (FreeStyle Emily 2 [place]) pantoprazole 40 mg tablet,delayed 40 mg PO BID stomach #180 tabs 05/20/23 Unknown Rx release aluminum-magnesium hydroxide 225 30 ml PO Q4H PRN UPSET STOMACH 07/23/23 Unknown History mg-200 mg/5 mL oral suspension dextrose 40 % oral gel (Glucose 10 g PO Q15M PRN hypoglycemia 07/23/23 Unknown History Gel) therapeutic multivitamin 1 tab PO DAILY vitamin 07/23/23 08/21/23 History budesonide 1 mg/2 mL suspension 0.5 mg inhalation BID breathing 08/13/23 Unknown History for nebulization potassium chloride 20 mEq 20 meq PO BID supplement 08/22/23 Unknown History tablet,extended release trazodone 50 mg tablet 25 mg PO QHS sleep 08/22/23 Unknown History insulin lispro 100 unit/mL See Protocol subcut ACHS #0 mL 08/26/23 Unknown Rx subcutaneous pen (Humalog KwikPen (U-100) Insulin) dulaglutide 0.75 mg/0.5 mL 0.75 mg subcut QWEEK 12/18/23 Unknown History subcutaneous pen injector fluticasone propionate 50 1 spray intranasal Q12H PRN 12/18/23 Unknown History mcg/actuation nasal allergy symptoms spray,suspension (Allergy Relief (fluticasone)) furosemide 20 mg tablet (Lasix) 40 mg PO DAILY diuretic 12/18/23 Unknown History insulin glargine 100 unit/mL (3 30 unit subcut QHS diabetic 12/18/23 Unknown History mL) subcutaneous pen (Basaglar managment KwikPen U-100 Insulin) lidocaine 5 % topical 1 patch topical DAILY PRN pain 12/18/23 Unknown History patch-adhesive silicone combo pack montelukast 10 mg tablet 10 mg PO QHS 12/18/23 Unknown History (Singulair) sennosides 8.6 mg-docusate sodium 2 tab-cap PO DAILY 12/18/23 Unknown History 50 mg tablet (Senna with Docusate Sodium) tizanidine 2 mg capsule (Zanaflex) 2 mg PO Q8H PRN muscle spasticity 12/18/23 Unknown History trolamine salicylate 10 % topical 1 applic topical BID 12/18/23 Unknown History cream (Pain Relief (trolamine salicylate)) ondansetron 4 mg disintegrating 4 mg PO Q8H PRN PRN Nausea #10 tabs 12/28/23 Unknown Rx tablet losartan 50 mg tablet 50 mg PO QDAY 04/25/24 Unknown History lactulose 10 gram/15 mL oral 10 g (15 mL) PO QHS PRN 06/01/24 Unknown Rx solution constipation #3,785 mL acetaminophen 500 mg tablet 1,000 mg PO Q8 PRN pain 06/04/24 Unknown History alprazolam 0.25 mg tablet 0.25 mg PO QHS anxiety 06/04/24 Unknown History insulin lispro 100 unit/mL 5 unit subcut 1700 06/04/24 Unknown History subcutaneous pen (Humalog KwikPen (U-100) Insulin) insulin lispro 100 unit/mL 15 unit subcut QHS diabetes 06/04/24 Unknown History subcutaneous pen (Humalog KwikPen (U-100) Insulin) prednisone 10 mg tablet 10 mg PO DAILY 06/04/24 Unknown History sucralfate 1 gram tablet (Carafate) 1 g PO TID acid reflux 06/04/24 Unknown History Allergy/AdvReac Type Severity Reaction Status Date / Time Iodinated Contrast Media Allergy Severe Anaphylaxis Verified 06/01/24 14:39 amoxicillin (Amoxicillin) Allergy Intermediate Rash Verified 06/01/24 14:39 hydrocodone Allergy Intermediate SWELLING Verified 06/01/24 14:39 gabapentin (From Neurontin) Allergy Shortness Verified 06/01/24 14:39 of breath levofloxacin (From Levaquin) Allergy Hives Verified 06/01/24 14:39 pseudoephedrine HCl (From Allergy Shortness Verified 06/01/24 14:39 Sudafed) of breath red dye Allergy Hives Verified 06/01/24 14:39 prednisone AdvReac Severe mean mood Verified 06/01/24 14:39 clonazepam (From Klonopin) AdvReac Depression Verified 06/01/24 14:39 codeine AdvReac HEADACHE Verified 06/01/24 14:39 Family History Brother Heart disease Mother Colon cancer Heart disease Surgical History History of left heart catheterization (LHC) (~09/23/20) History of cholecystectomy Stented coronary artery (12/28/18) Social History Smoking Status: Former smoker pack-years: 40 how long ago did patient quit smokin year ago alcohol intake: never substance use type: does not use caffeine: Yes Type: carbonated beverages and tea what type of physical activity do you participate in: none ROS ROS ED Constitutional Constitutional ED: Denies chills or fever(s) Eyes Eyes: Denies change in vision or diplopia ENT ENT ED: Denies rhinorrhea or sore throat Cardiovascular Cardiovascular: Denies chest pain or palpitations Respiratory/Chest Respiratory/Chest: Denies cough or dyspnea Gastrointestinal Gastrointestinal: Reports abdominal pain, constipation and nausea; Denies diarrhea or vomiting Genitourinary Genitourinary ED: Reports difficulty urinating; Denies dysuria or hematuria Musculoskeletal Musculoskeletal: Denies back pain or neck pain Integumentary Denies abscess or rash Neurologic Neurologic: Denies headache(s), paresthesias or weakness EXAM Physical Exam Const Vital Signs: 06/04/24 19:26 06/04/24 21:24 Temperature 98.3 F Temperature Source Oral Pulse Rate 95 78 Respiratory Rate 19 H 19 H Blood Pressure 115/83 H 120/47 L Blood Pressure Mean 93 71 Pulse Ox 98 98 Oxygen Delivery Method Nasal Cannula Nasal Cannula Oxygen Flow Rate (L/min) 4 4 Positive well nourished, well developed and obese General Appearance ED: well developed and NAD Nutritional Appearance: obese HEENT Reports moist mucous membranes normocephalic and atraumatic Eyes PERRL and EOMs intact bilaterally Neck full ROM and supple Resp normal respiratory effort and clear to auscultation bilaterally Cardio regular rate, regular rhythm and no murmurs GI non-distended GI Narrative: Morbidly obese abdomen limits the exam. Tender diffusely. No guarding or rebound. Normal bowel sounds. On rectal, there is hard stool that is high, difficult to remove digitally. No other tenderness or abscess. Several nonbleeding nonthrombosed external hemorrhoids. Auscultation: normoactive bowel sounds Palpation: soft Back/Spine no CVA tenderness General Back: other FROM Extremity normal to inspection General Extremety ED: Negative for edema, pulses abnormal or tenderness General Extremity: Negative for edema or pulses abnormal Neuro oriented x3, CN's II-XII intact bilaterally and no sensory deficits noted Sensorium / Orientation: awake and alert Motor Exam: strength 5/5 throughout Psych mental status grossly normal and thought process normal Skin no rashes or lesions noted and no wounds MDM MDM MDM Narrative Medical decision making narrative: After attending disimpaction patient was given soapsuds enema which provided large results, she had a large bowel movement. She felt a little bit better but still having pain and tenderness in the right lower quadrant. Therefore she was sent for lab testing and a CT. she does have a leukocytosis, however the CT shows no acute abnormalities. She not having any acute urinary symptoms. On reevaluation after the CT results, I reviewed the images and report which I agree with, she is doing better still. She still has some mild right lower quadrant pain and rectal discomfort, but both improved compared with the prior evaluation. She states that she has had all of this happen before and she expected this to still be hurting and she states that it will probably be better tomorrow. She is comfortable going back home. Uncomfortable discharging her. Lab Data Attestation: I reviewed the patient's lab results. Labs: Laboratory Results - last 24 hr 06/04/24 21:13 WBC 17.7 H RBC 3.78 L Hgb 11.0 L Hct 33.4 L MCV 88.4 MCH 29.1 MCHC 32.9 RDW Std Deviation 41.0 RDW Coeff of [place] 12.7 Plt Count 348 MPV 10.2 Immature Gran % (Auto) 0.600 Neut % (Auto) 85.6 H Lymph % (Auto) 6.8 L [place] % (Auto) 6.1 Eos % (Auto) 0.4 Baso % (Auto) 0.5 Absolute Neuts (auto) 15.2 H Absolute Lymphs (auto) 1.21 Nucleated RBC % 0 Sodium 130 L Potassium 4.2 Chloride 95 L Carbon Dioxide 31.0 Anion Gap 4 L BUN 12 Creatinine 0.84 Estim Creat Clear Calc 65.89 Est GFR (MDRD) Af Amer 86 Est GFR (MDRD) Non-Af 71 BUN/Creatinine Ratio 14.3 Glucose 88 Calcium 9.5 Total Bilirubin 0.30 AST 15 ALT 23 Alkaline Phosphatase 116 Total Protein 6.7 Albumin 3.4 Globulin 3.3 Albumin/Globulin Ratio 1.0 Radiography Diagnostic Testing: Clinical Impression(s) from Imaging Studies Abdomen/Pelvis CT 06/04/24 21:05 IMPRESSION: Mild perirectal stranding. Possible proctitis or related to hemorrhoids. Mild stool in the descending colon with nondistended rectosigmoid colon. No bowel obstruction, but a subtle colonic lesion cannot be entirely excluded. If symptoms persist, follow-up may be helpful. Colonic diverticulosis without evidence of acute diverticulitis. Electronically Signed: Loreta Lakhani MD at 22:24 EDT , Discharge Plan Triage Chief Complaint: Constipation ED Provider: Deon Rodriguez Dx/Rx/DC Orders Clinical Impression: Acute constipation, Right lower quadrant abdominal pain Instructions: ED Constipation (Adult) Prescriptions: No Action (DME) Handicap Placard See Rx Instructions .ROUTE .MEDSUPPLY Qty: 1 0RF Rx Instructions: As directed, length of time 3 years citalopram 40 mg tablet 40 mg PO QHS Qty: 90 3RF (DME) cane Device See Rx Instructions .Route Qty: 1 0RF Rx Instructions: As directed pantoprazole 40 mg tablet,delayed release (DR/EC) 40 mg PO BID Qty: 180 2RF therapeutic multivitamin Tablet 1 tab PO DAILY dextrose [Glucose Gel] 40 % gel 10 g PO Q15M PRN (Reason: hypoglycemia) Rx Instructions: until symptoms of low blood sugar are controlled aluminum-magnesium hydroxide 225-200 mg/5 mL suspension 30 ml PO Q4H PRN (Reason: UPSET STOMACH) budesonide 1 mg/2 mL suspension for nebulization 0.5 mg inhalation BID insulin glargine [Basaglar KwikPen U-100 Insulin] 100 unit/mL (3 mL) insulin pen 30 unit subcut QHS Rx Instructions: daily at bedtime losartan 50 mg tablet 50 mg PO QDAY trolamine salicylate [Pain Relief (trolamine salicy)] 10 % cream 1 applic topical BID fluticasone propionate [Allergy Relief (fluticasone)] 50 mcg/actuation spray,suspension 1 spray intranasal Q12H PRN (Reason: allergy symptoms) Rx Instructions: administer into each nostril lidocaine-silicone, adhesive 5 % combo pack 1 patch topical DAILY PRN (Reason: pain) Rx Instructions: leave on most painful area for up to 12 hrs montelukast [Singulair] 10 mg tablet 10 mg PO QHS sennosides-docusate sodium [Senna with Docusate Sodium] 8.6-50 mg tablet 2 tab-cap PO DAILY dulaglutide 0.75 mg/0.5 mL pen injector 0.75 mg subcut QWEEK tizanidine [Zanaflex] 2 mg capsule 2 mg PO Q8H PRN (Reason: muscle spasticity) lactulose 10 gram/15 mL solution 10 g PO QHS PRN (Reason: constipation) Qty: 3785 1RF isosorbide mononitrate 60 mg tablet extended release 24 hr 60 mg PO DAILY Qty: 90 3RF nitroglycerin 0.4 mg tablet, sublingual 0.4 mg SUBLINGUAL Q5-15M PRN (Reason: Pain) Qty: 30 0RF atorvastatin 80 mg tablet 80 mg PO QHS clopidogrel 75 mg tablet 75 mg PO DAILY metoprolol tartrate 25 mg tablet 12.5 mg PO BID Rx Instructions: furosemide [Lasix] 20 mg tablet 40 mg PO DAILY trazodone 50 mg tablet 25 mg PO QHS potassium chloride 20 mEq tablet extended release 20 meq PO BID insulin lispro [Humalog KwikPen Insulin] 100 unit/mL Insulin Pen See Protocol subcut ACHS Qty: 0 0RF Protocol: 5. Sliding Scale Insulin High Dosing Condition: 150-209 mg/dl = 3 units Condition: 210-259 mg/dl = 6 units Condition: 260-324 mg/dl = 9 units Condition: 325-374 mg/dl = 12 units Condition: 375-409 mg/dl = 14 units Condition: 410-449 mg/dl = 16 units Condition: Greater than 449 call physician Protocol Text: - Use for Total Daily Dose of Insulin 81-120 units - Very insulin resistant or septic patients HIGH DOSING ALGORITHM prednisone 10 mg tablet 10 mg PO DAILY sucralfate [Carafate] 1 gram tablet 1 g PO TID acetaminophen 500 mg Tablet 1,000 mg PO Q8 PRN (Reason: pain) alprazolam 0.25 mg tablet 0.25 mg PO QHS insulin lispro [Humalog KwikPen Insulin] 100 unit/mL Insulin Pen 15 unit subcut QHS Protocol: 4. Sliding Scale Insulin High-Med Dosing Condition: 150-199 mg/dl = 2 units Condition: 200-259 mg/dl = 4 units Condition: 260-324 mg/dl = 6 units Condition: 325-374 mg/dl = 8 units Condition: 375-409 mg/dl = 10 units Condition: 410-449 mg/dl = 11 units Condition: Greater than 449 call physician Protocol Text: - Use for Total Daily Dose of Insulin 56-80 units - Patient who are insulin resistant or septic HIGH MEDIUM DOSING ALGORITHM insulin lispro [Humalog KwikPen Insulin] 100 unit/mL Insulin Pen 5 unit subcut 1700 ondansetron 4 mg tablet,disintegrating 4 mg PO Q8H PRN PRN (Reason: Nausea) Qty: 10 0RF bisacodyl [Dulcolax (bisacodyl)] 5 mg tablet,delayed release (DR/EC) 5 mg PO QHS PRN (Reason: constipation) 30 Days Qty: 30 3RF (DME) pen needle, diabetic 32 gauge x 5/32 needle See Rx Instructions .ROUTE .MEDSUPPLY Qty: 50 0RF Rx Instructions: 4x/day (DME) blood-glucose meter [True Metrix Glucose Meter] Misc See Rx Instructions .Route Qty: 1 0RF Rx Instructions: As directed (DME) True Metrix Glucose Test Strip Strip See Rx Instructions .Route Qty: 100 7RF Rx Instructions: tid albuterol sulfate 90 mcg/actuation HFA aerosol inhaler 2 puff INHALATION Q6H PRN (Reason: shortness of breath or wheezing) Qty: 18 3RF ipratropium-albuterol 0.5 mg-3 mg(2.5 mg base)/3 mL solution for nebulization 3 ml INHALATION Q4H PRN PRN (Reason: SOB &/OR WHEEZING) Qty: 180 6RF (DME) FreeStyle Emily 2 Sensor Kit See Rx Instructions .ROUTE .MEDSUPPLY Qty: 2 3RF Rx Instructions: As directed (DME) FreeStyle Emily 2 [place] Misc See Rx Instructions .ROUTE .MEDSUPPLY Qty: 1 0RF Rx Instructions: As directed Primary Care Provider: Billy Madera Referrals: Billy Madera MD [Primary Care Provider] - As soon as possible (For follow-up on CT results and reevaluation) Print Language: Slovenian Disposition Disposition: Home, Self Care
--- OUTSIDE RECORDS SUMMARY | 2024-06-04 19:50 | XMS RPT_ITS | CCD ---
Author Organization [facility] Inform ion Partnership [facility] Care Team Providers Care Client Relations Specialist Name Role Phone Jerry MELVIN, Bolivar Rosado Unavailable Yuliet Aguilar Unavailable Unavailable Vincent Stallworth Primary Care Provider [phone] Unavailable Primary Care Provider UnavailBilly Harris Primary Care Provider Dimas MELVIN, Brittney Nj Primary Care Provider VINCENT STALLWORTH Primary Care Unavailable FIDELIA VÁSQUEZ Attending Unavaila ble Allergies Allergy Classification Reported Allergen(s) Allergy Type Date of Onset Reaction(s) Facility (8 sources) amoxicillin; Translations: [AMOXICILLIN] drug allergy 12-20-19 09 Hives, Rash [facility] Work Phone: (3 sources) cephalexin drug allergy 06-01-20 16 GI upset [facility] Work Phone: (3 sources) Cephalosporins (Antibiotic) drug allergy 06-01-20 16 trouble breathing and lip numbing [facility] Work Phone: (3 sources) ciprofloxacin drug allergy 06-01-20 16 edema [facility] Work Phone: (3 sources) codeine drug allergy 06-01-20 16 [facility] Work Phone: (3 sources) Corticosteroids drug allergy 06-01-20 16 anxious [facility] Work Phone: (3 sources) gabapentin drug allergy 06-01-20 16 dyspnea [facility] Work Phone: (3 sources) levoFLOXacin drug allergy 06-01-20 16 hives [facility] Work Phone: (3 sources) meperidine drug allergy 06-01-20 16 [facility] Work Phone: (3 sources) nortriptyline drug allergy 06-01-20 16 headache [facility] Work Phone: (3 sources) sertraline drug allergy 06-01-20 16 felt poorly [facility] Work Phone: (3 sources) venlafaxine drug allergy 06-01-20 16 anxiety increase [facility] Work Phone: (3 sources) Codeine; Translations: [CODEINE] Drug Allergy 04-14-20 16 Other: See Comments [facility] (3 sources) Contrast media; Translations: [RED DYE] Drug Allergy 04-14-20 16 [facility] (3 sources) levoFLOXacin; Translations: [LEVOFLOXACIN] Drug Allergy 04-14-20 16 [facility] (3 sources) Omeprazole; Translations: [OMEPRAZOLE] Drug Allergy 04-14-20 16 Shortness of Breath [facility] (4 sources) Pseudoephedrine; Translations: [PSEUDOEPHEDRINE] Drug Allergy 04-14-20 16 Rash [facility] (3 sources) raNITIdine; Translations: [RANITIDINE] Drug Allergy 04-14-20 16 [facility] (2 sources) Cephalexin Drug Allergy 06-01-20 16 Other (See Comments[place] ([place] Iodides Propensity to adverse reactions to drug 07-14-20 19 [place], [place] (1 source) Pseudoephedrine Drug Allergy 12-20-19 09 [facility] Work Phone: (1 source) Morphine And Related Propensity to adverse reactions to drug 12-20-19 09 [facility] Work Phone: (1 source) clonazePAM Drug Allergy 01-10-20 24 Unknown [facility] (1 source) gabapentin Drug Allergy 01-10-20 24 Unknown [facility] (1 source) HYDROcodone Drug Allergy 01-10-20 24 Unknown [facility] (1 source) Iodinated Contrast Media Propensity to adverse reactions to drug 01-10-20 24 Unknown [facility] Medications Current Medications Medication Drug Class(es) Dates Sig (Normalized) Sig (Original) acetaminophen 500 mg oral tablet (1 source) take 1 tablet by mouth every six hours as needed acetaminophen (TYLENOL EXTRA STRENGTH) 500 mg tablet Take 500 mg by mouth every 6 hours as needed for pain. 0 Active [id number] 200 actuat albuterol 0.09 mg/actuat metered dose inhaler (10 sources) beta2-Adrenergic Agonist Start: 12-13-2023 take 2 puff(s) by inhalation every four hours as needed for wheezing albuterol HFA (PROVENTIL HFA, VENTOLIN HFA) 90 mcg/actuation inhaler Inhale 2 Puffs as instructed every 4 hours as needed for wheezing/shortness of breath. 0 12/13/2023 Active Start: 06-01-2016 End: 09-24-2016 ALBUTEROL SULFATE (2.5 MG/3M L) 0.083% NEBU INH four times a day as needed ALBUTEROL SULFATE [id number] [place]at [place] Start: 06-01-2016 take 1-2 puff(s) by inhalation every four hours as needed VENTOLIN HFA 108 (90 Base) MCG/ACT AERS INH 1-2 puffs q4h as needed ALBUTEROL SULFATE [id number] July Sierra Noble WHOLESALE MANAGER Start: 06-01-2016 take 1-2 puff(s) by inhalation every four hours as needed VENTOLIN HFA 108 (90 Base) MCG/ACT AERS INH 1-2 puffs q4h as needed ALBUTEROL SULFATE [id number] July Sierra Noble WHOLESALE MANAGER albuterol 0.833 mg/ml / ipratropium bromide 0.167 mg/ml inhalant solution (4 sources) Anticholinergic, beta2-Adrenergic Agonist Start: 09-05-2020 ipratropium-albuterol (DUONEB) 0.5-2.5 (3) MG/3ML SOLN nebulizer solution inhale contents of 1 vial ( 3 milliliters ) in nebulizer every 4 ... (REFER TO PRESCRIPTION NOTES). 0 09/05/2020 Active Start: 06-01-2016 IPRATROPIUM-AL BUTEROL 0.5-2.5 (3) MG/3ML SOLN INH four times a day as needed IPRATROPIUM-ALBUTEROL [id number] July Sierra Noble WHOLESALE MANAGER albuterol sulfate HFA 108 (90 Base) MCG/ACT inhaler (2 sources) Start: 08-08-2020 take 2 puff(s) by mouth every six hours albuterol sulfate HFA 108 (90 Base) MCG/ACT inhaler inhale 2 puffs by mouth and INTO THE LUNGS every 6 hours if neede... (REFER TO PRESCRIPTION NOTES). 0 08/08/2020 Active atorvastatin 80 mg oral tablet (7 sources) HMG-CoA Reductase Inhibitor Start: 12-23-2023 take 1 tablet by mouth once daily atorvastatin (LIPITOR) 80 mg tablet Take 80 mg by mouth once daily. 0 12/23/2023 Active Start: 06-01-2016 End: 07-31-2016 take 1 tablet by mouth once daily LIPITOR 10 MG TABS One tablet by mouth daily ATORVASTATIN CALCIUM [id number] Cheyenne Singh WHOLESALE MANAGER bisacodyl 5 mg delayed release oral tablet (4 sources) Stimulant Laxative Start: 08-23-2020 take 1 tablet by mouth once daily for constipation RA LAXATIVE 5 MG EC tablet take 1 tablet by mouth once daily if needed for constipation 0 08/23/2020 Active Start: 06-01-2016 take 2 tablets by mo [facility] once daily as needed, then take 1 tablet by mouth as needed BISACODYL EC 5 MG TBEC Two tablets by mouth daily as needed BISACODYL [id number] July Sierra Noble WHOLESALE MANAGER budesonide 0.5 mg/ml inhalation suspension (1 source) Corticosteroid Start: 01-05-2024 budesonide (PULMICORT) 1 mg/2 mL nebulizer solution Use 1 mg via nebulizer once daily. 0 01/05/2024 Active busPIRone hydrochloride 7.5 mg oral tablet (1 source) Start: 12-23-2023 take 1 tablet by mouth twice daily busPIRone (BUSPAR) 7.5 mg tablet Take 7.5 mg by mouth two times a day. 0 12/23/2023 Active clopidogrel 75 mg oral tablet (2 sources) P2Y12 Platelet Inhibitor Start: 12-23-2023 take 1 tablet by mouth once daily clopidogrel (PLAVIX) 75 mg tablet Take 75 mg by mouth once daily. 0 12/23/2023 Active Start: 10-08-2020 clopidogrel (P LAVIX) 75 MG tablet docusate sodium 100 mg oral capsule (5 sources) Start: 09-26-2020 take 1 capsule by mo [facility] twice daily for constipation DOK 100 MG capsule take 1 capsule by mouth twice a day if needed for constipation 0 09/26/2020 Active Start: 06-01-2016 End: 01-10-2024 take 1 tablet by mouth twice daily COLACE 100 MG CAPS One tablet by mouth twice daily DOCUSATE SODIUM [id number] July Sierra Noble WHOLESALE MANAGER Start: 06-01-2016 take 1 tablet by dylon twice daily COLACE 100 MG CAPS One tablet by mouth twice daily DOCUSATE SODIUM [id number] July Sierra Noble WHOLESALE MANAGER docusate sodium 50 mg / sennosides, long-term 8.6 mg oral tablet (1 source) take 1 tablet by mouth once daily senna-docusate (SENNA PLUS) 8.6-50 mg per tablet Take 1 tablet by mouth once daily. 0 Active 0.5 ml dulaglutide 1.5 mg/ml auto-injector (1 source) GLP-1 Receptor Agonist Start: inject 0.75 mg by subcutaneous injection every week TRULICITY 0.75 mg/0.5 mL pen injector Inject 0.75 mg subcutaneously one time a week. 0 12/26/2023 Active fluticasone propionate 0.05 mg/actuat metered dose nasal spray (1 source) Corticosteroid Start: take 1 spray(s) nasal route once daily fluticasone (FLONASE) 50 mcg/actuation nasal spray Use 1 [place] in each nostril once daily. 0 09/29/2023 Active FREESTYLE TANIKA 2 READER (1 source) Start: FREESTYLE TANIKA 2 READER 1 Each every year. 0 10/19/2023 Active FREESTYLE TANIKA 2 SENSOR kit (1 source) Start: FREESTYLE TANIKA 2 SENSOR kit 1 Each every 2 weeks. 0 12/26/2023 Active furosemide 40 mg oral tablet (2 sources) Loop Diuretic Start: take 1 tablet by mouth twice daily furosemide (LASIX) 40 mg tablet Take 40 mg by mouth two times a day. 0 12/13/2023 Active Start: 09-03-2020 take 0.5 tablet by m outh once daily furosemide (LASIX) 40 MG tablet take 1/2 tablet by mouth once daily 0 09/03/2020 Active indomethacin 50 mg oral capsule (2 sources) Nonsteroidal Anti-inflammatory Drug Start: 06-12-2020 take 1 capsule by mouth twice daily at mealtime indomethacin (INDOCIN) 50 MG capsule take 1 capsule by mouth twice a day with food or milk 0 06/12/2020 Active 3 ml insulin lispro 100 unt/ml pen injector (6 sources) Insulin Analog Start: 01-05-2024 HUMALOG KWIKPEN INSULIN 100 unit/mL Start: 06-01-2016 HUMALOG KWIKPE N 100 UNIT/ML SOPN as directed INSULIN LISPRO (HUMAN) [id number] July Sierra Noble WHOLESALE MANAGER Start: 06-01-2016 HUMALOG KWIKPE N 100 UNIT/ML SOPN as directed INSULIN LISPRO (HUMAN) [id number] July Sierra Noble WHOLESALE MANAGER insulin lispro ( HUMALOG) 100 UNIT/ML injection vial As need, as directed - amount depends on blood levels. 0 Active 3 ml insulin, aspart, human 100 unt/ml pen injector (2 sources) Insulin Analog Start: 02-22-2020 insulin aspart (NOVOLOG) 100 UNIT/ML injection pen Insulin, Aspart, Human Insulin Aspart (Insulin Aspart Flexpen) 100 unit/mL (3 mL) insulin pen Active 0 SC THREE TIMES A DAY February 22, 2020 8:26am Sliding scale- subcut three times a day; 200-250 4 units 251-300 6 units 301-350 8 units 351-400 10 units 02-22-2020 [facility] ([id number]) 0 02/22/2020 Active 24 hr isosorbide mononitrate 60 mg extended release oral tablet (1 source) Nitrate Vasodilator Start: 12-23-2023 take 1 tablet by mouth once daily, then take 1 tablet by mouth every twenty-four hours isosorbide mononitrate ER (IMDUR) 60 mg 24 hr tablet Take 60 mg by mouth once daily. 0 12/23/2023 Active losartan potassium 50 mg oral tablet (3 sources) Angiotensin 2 Receptor Bernarda Start: 12-23-2023 take 1 tablet by mouth once daily losartan (COZAAR) 50 mg tablet Take 50 mg by mouth once daily. 0 12/23/2023 Active Start: 08-08-2020 take 1 tablet by dylon th once daily losartan (COZAAR) 25 MG tablet take 1 tablet by mouth once daily 0 08/08/2020 Active 24 hr metFORMIN hydrochloride 500 mg extended release oral tablet (2 sources) Biguanide Start: 08-08-2020 take 2 tablets by mouth once daily in the evening metFORMIN (GLUCOPHAGE-XR) 500 MG extended release tablet take 2 tablets by mouth every evening 0 08/08/2020 Active metoprolol tartrate 25 mg oral tablet (3 sources) beta-Adrenergic Bernarda Start: 12-23-2023 metoprolol tartrate, short acting, (LOPRESSOR) 25 mg tablet Take 12.5 mg by mouth two times a day. 0 12/23/2023 Active Start: 07-13-2020 take 0.5 tablet by m outh twice daily metoprolol tartrate (LOPRESSOR) 25 MG tablet take 1/2 tablet by mouth twice a day 0 07/13/2020 Active montelukast 10 mg oral tablet (1 source) Leukotriene Receptor Antagonist Start: 12-15-2023 take 1 tablet by mouth once daily at bedtime montelukast (SINGULAIR) 10 mg tablet Take 10 mg by mouth daily at bedtime. 0 12/15/2023 Active multivit,calc,mins/i analy/folic (THERA-M ORAL) (1 source) take 1 tablet by mouth once daily multivit,calc,mins/ iron/folic (THERA-M ORAL) Take 1 tablet by mouth once daily. 0 Active nitroglycerin 0.4 mg sublingual tablet (3 sources) Nitrate Vasodilator Start: 10-22-2023 nitroglycerin sublingual (NITROQUICK) 0.4 mg SL tablet Dissolve 0.4 mg under the tongue every 5 minutes as needed for chest pain. 0 10/22/2023 Active Start: 08-14-2020 nitroGLYCERIN (NITROSTAT) 0.4 MG SL tablet ondansetron 4 mg oral tablet (1 source) Serotonin-3 Receptor Antagonist Start: 12-31-2023 take 1 tablet by mouth every six hours as needed ondansetron (ZOFRAN) 4 mg tablet Take 4 mg by mouth every 6 hours as needed for nausea/vomiting. 0 12/31/2023 Active OXYGEN, HOME THERAPY, (1 source) OXYGEN, HOME THE RAPY, Inhale 4 L/min as instructed continuous. 0 Active pantoprazole 40 mg delayed release oral tablet (3 sources) Proton Pump Inhibitor Start: 12-23-2023 take 1 tablet by mouth twice daily pantoprazole DR (PROTONIX) 40 mg tablet Take 40 mg by mouth two times a day. 0 12/23/2023 Active Start: 06-04-2020 take 1 tablet by dylon th once daily pantoprazole (PROTONIX) 40 MG tablet take 1 tablet by mouth once daily 0 06/04/2020 Active microencapsulated potassium chloride 20 meq extended release oral tablet (1 source) Start: 12-23-2023 take 1 tablet by mouth twice daily potassium chloride ER (KLOR-CON) 20 mEq tablet Take 20 mEq by mouth two times a day. 0 12/23/2023 Active predniSONE 10 mg oral tablet (7 sources) Start: 12-23-2023 take 1 tablet by mouth once daily predniSONE (DELTASONE) 10 mg tablet Take 10 mg by mouth once daily. 0 12/23/2023 Active Start: 09-24-2016 End: 10-06-2016 PREDNISONE 10 MG TABS Take 4 tabs by mouth for 3 days, then 3 tabs by mouth for 3 days, then 2 tabs by mourth for 3 days, then 1 tab by mouth for 3 days. PREDNISONE [id number] Haroon Nuno Start: 08-19-2016 End: 08-31-2016 PREDNISONE 10 MG TABS Take 4 tabs by mouth for 3 days, then 3 tabs by mouth for 3 days, then 2 tabs by mourth for 3 days, then 1 tab by mouth for 3 days. PREDNISONE [id number] Michelle Givens CNP sucralfate 1000 mg oral tablet (1 source) Aluminum Complex Start: 09-29-2023 take 1 tablet by mouth every eight hours as needed sucralfate (CARAFATE) 1 gram tablet Take 1 g by mouth three times a day as needed (acid reflux). 0 09/29/2023 Active tiZANidine 2 mg oral tablet (1 source) Central alpha-2 Adrenergic Agonist Start: 12-27-2023 take 1 tablet by mouth every eight hours as needed tiZANidine (ZANAFLEX) 2 mg tablet Take 2 mg by mouth every 8 hours as needed (pain). 0 12/27/2023 Active traZODone hydrochloride 50 mg oral tablet (1 source) Serotonin Reuptake Inhibitor Start: 12-14-2023 take 1 tablet by mouth once daily at bedtime traZODone (DESYREL) 50 mg tablet Take 50 mg by mouth daily at bedtime. 0 12/14/2023 Active triamcinolone acetonide 0.001 mg/mg topical ointment (2 sources) Corticosteroid Start: 06-04-2020 triamcinolone (KENALOG) 0.1 % ointment APPLY TO AFFECTED AREAS TWICE DAILY 0 06/04/2020 Active Completed/Discontinued Medications Medication Drug Class(es) Dates Sig (Normalized) Sig (Original) HYDROCODONE-ACETAM INOPHEN (6 sources) Opioid Agonist Start: 06-01-2016 take 1 tablet by mouth three times daily as needed NORCO 5-325 MG TABS 1 tab po three times a day as needed HYDROCODONE-ACETAMI NOPHEN [id number] July Sierra Aide DE LEON Start: 06-01-2016 End: 08-19-2016 take 1 tablet by mouth three times daily as needed NORCO 5-325 MG TABS 1 tab po three times a day as needed HYDROCODONE-ACETAMINOPHEN [id number] Jluy Sierra Noble MOISES Start: 06-01-2016 End: 08-19-2016 take 1 tablet by mouth three times daily as needed NORCO 5-325 MG TABS 1 tab po three times a day as needed HYDROCODONE-ACETAMINOPHEN [id number] July Sierra Noble MOISES ALPRAZolam 0.25 mg oral tablet (7 sources) Benzodiazepine Start: 12-24-2023 End: 01-10-2024 take 1 tablet by mouth every eight hours as needed ALPRAZolam (XANAX) 0.25 mg tablet Take 0.25 mg by mouth three times a day as needed for anxiety. 0 12/24/2023 01/10/2024 Discontinued (Course of therapy completed) Start: 06-01-2016 take 1 tablet by dylon three times daily XANAX 1 MG TABS One tablet by mouth three times daily ALPRAZOLAM [id number] July Esquivel Aide DE LEON End: 01-10-2024 take 1 tablet by mouth three times daily as needed ALPRAZolam (XANAX) 0.5 mg tablet Indications: Bloating , Epigastric pain , Diarrhea, unspecified type Take 0.5 mg by mouth three times daily as needed. 0 01/10/2024 Discontinued (Course of therapy completed) azaTHIOprine 50 mg oral tablet (4 sources) Purine Antimetabolite Start: 06-01-2016 take 3 tablets by mouth once daily AZATHIOPRINE 50 MG TABS Three tablets by mouth daily AZATHIOPRINE [id number] July Sierra Noble LPN End: 01-10-2024 take 2 tablets by mouth once daily azaTHIOprine (IMURAN) 50 mg tablet Indications: Bloating , Epigastric pain , Diarrhea, unspecified type Take 100 mg by mouth once daily. 0 01/10/2024 Discontinued (Course of therapy completed) azithromycin 250 mg oral tablet (3 sources) Macrolide Antimicrobial Start: 08-19-2016 End: 08-24-2016 ZITHROMAX 250 MG TABS 2 tabs po x 1 day, 1 tab po x 4 days AZITHROMYCIN [id number] Michelle Givens CNP celecoxib 200 mg oral capsule (6 sources) Nonsteroidal Anti-inflammatory Drug Start: 06-01-2016 End: 07-31-2016 take 1 tablet by mouth once daily CELEBREX 200 MG CAPS One tablet by mouth daily CELECOXIB [id number] Cheyenne Singh LPN ciprofloxacin 500 mg oral tablet (3 sources) Quinolone Antimicrobial Start: 09-24-2016 take 1 tablet by mouth twice daily CIPROFLOXACIN HCL 500 MG TABS One tablet by mouth twice daily CIPROFLOXACIN HCL [id number] Haroon uNno citalopram 40 mg oral tablet (9 sources) Serotonin Reuptake Inhibitor Start: 06-01-2016 End: 01-10-2024 take 1 tablet by mouth once daily CELEXA 40 MG TABS One tablet by mouth daily CITALOPRAM HYDROBROMIDE [id number] July Noble LPN End: 01-10-2024 take 1 tablet by mouth once daily in the morning citalopram (CELEXA) 20 mg tablet Indications: Bloating , Epigastric pain , Diarrhea, unspecified type Take 20 mg by mouth once daily. in am 0 01/10/2024 Discontinued (Course of therapy completed) COMPOUNDED PRESCRIPTION (1 source) End: 01-10-2024 COMPOUNDED PRESCRIPTION Indications: Bloating , Epigastric pain , Diarrhea, unspecified type laxative biscoydol takes 2 tablets in the pm 0 01/10/2024 Discontinued (Course of therapy completed) cyclobenzaprine hydrochloride 5 mg oral tablet (6 sources) Muscle Relaxant Start: 06-01-2016 End: 08-19-2016 take 1 tablet by mouth three times daily as needed CYCLOBENZAPRINE HCL 5 MG TABS One tablet by mouth three times daily as needed CYCLOBENZAPRINE HCL [id number] July Noble LPN dicyclomine hydrochloride 20 mg oral tablet (1 source) Anticholinergic Start: 05-04-2016 End: 01-10-2024 take 1 tablet by mouth three times daily before mealtime dicyclomine (BENTYL) 20 mg tablet Take 1 tablet by mouth three times daily before meals. 90 tablet 3 05/04/2016 01/10/2024 Discontinued (Course of therapy completed) FLUTICASONE-SALMETE ROL (6 sources) Corticosteroid, beta2-Adrenergic Agonist Start: 06-01-2016 take 2 puff(s) by inhalation twice daily ADVAIR HFA 230-21 MCG/ACT AERO INH 2 puffs twice daily FLUTICASONE-SALMETE ROL [id number] July Noble LPN Start: 06-01-2016 End: 07-31-2016 take 2 puff(s) by inhalation twice daily ADVAIR HFA 230-21 MCG/ACT AERO INH 2 puffs twice daily FLUTICASONE-SALMETEROL [id number] Cheyenne Singh LPN Start: 06-01-2016 End: 07-31-2016 take 2 puff(s) by inhalation twice daily ADVAIR HFA 230-21 MCG/ACT AERO INH 2 puffs twice daily FLUTICASONE-SALMETEROL [id number] July [place] WHOLESALE MANAGER HALOBETASOL PROPIONATE (6 sources) Corticosteroid Start: 06-01-2016 ULTRAVATE 0.05 % OINT Apply twice daily as needed HALOBETASOL PROPIONATE [id number] July Esquivel Noble WHOLESALE MANAGER Start: 06-01-2016 End: 07-31-2016 ULTRAVATE 0.05 % OINT Apply twice daily as needed HALOBETASOL PROPIONATE [id number] Cheyenne Singh WHOLESALE MANAGER Start: 06-01-2016 End: 07-31-2016 ULTRAVATE 0.05 % OINT Apply twice daily as needed HALOBETASOL PROPIONATE [id number] July Noble WHOLESALE MANAGER INSULIN GLARGINE (5 sources) Insulin Analog Start: 06-01-2016 LANTUS 100 UNI T/ML SOLN as directed INSULIN GLARGINE [id number] July Sierra Noble WHOLESALE MANAGER Start: 06-01-2016 LANTUS 100 UNI T/ML SOLN as directed INSULIN GLARGINE [id number] July Sierra Noble WHOLESALE MANAGER insulin glargine (LANTUS) 100 UNIT/ML injection vial Inject 30 Units into the skin nightly 0 Active IPRATROPIUM BROMIDE HFA (9 sources) Anticholinergic Start: 06-01-2016 End: 08-19-2016 IPRATROPIUM BROMIDE 0.03 % SOLN 1-2 sprays nasally q6h as needed IPRATROPIUM BROMIDE [id number] July Sierra Noble WHOLESALE MANAGER Start: 06-01-2016 take 2 puff(s) by in halation every four hours as needed ATROVENT HFA 17 MCG/ACT AERS INH 2 puffs q4h as needed IPRATROPIUM BROMIDE HFA [id number] July Sierra Noble WHOLESALE MANAGER Start: 06-01-2016 take 2 puff(s) by in halation every four hours as needed ATROVENT HFA 17 MCG/ACT AERS INH 2 puffs q4h as needed IPRATROPIUM BROMIDE HFA [id number] July Esquivel Noble WHOLESALE MANAGER IV IG GRAMS (3 sources) Start: 06-01-2016 IV IG GRAMS monthly IV IG GRAMS July Esquivel Noble WHOLESALE MANAGER levoFLOXacin 500 mg oral tablet (6 sources) Quinolone Antimicrobial Start: 08-19-2016 End: 08-19-2016 take 1 tablet by mouth once daily LEVAQUIN 500 MG TABS One tablet PO daily LEVOFLOXACIN [id number] Michelle Givens CNP LEVOTHYROXINE SODIUM (5 sources) l-Thyroxine Start: 06-01-2016 End: 01-10-2024 take 1 tablet by mouth once daily SYNTHROID 75 MCG TABS One tablet by mouth daily LEVOTHYROXINE SODIUM [id number] July [place] WHOLESALE MANAGER Start: 06-01-2016 take 1 tablet by dylon th once daily SYNTHROID 75 MCG TABS One tablet by mouth daily LEVOTHYROXINE SODIUM [id number] July Esquivel Noble WHOLESALE MANAGER LINACLOTIDE (6 sources) Guanylate Cyclase-C Agonist Start: 06-01-2016 End: 07-31-2016 take 1 tablet by mouth once daily LINZESS 145 MCG CAPS One tablet by mouth daily LINACLOTIDE [id number] Cheyenne Singh WHOLESALE MANAGER Start: 06-01-2016 take 1 tablet by dylon th once daily LINZESS 145 MCG CAPS One tablet by mouth daily LINACLOTIDE [id number] July Sierra Noble WHOLESALE MANAGER Start: 06-01-2016 End: 07-31-2016 take 1 tablet by mouth once daily LINZESS 145 MCG CAPS One tablet by mouth daily LINACLOTIDE [id number] Cheyenne Singh WHOLESALE MANAGER risperiDONE 1 mg oral tablet (6 sources) Atypical Antipsychotic Start: 06-01-2016 take 1 tablet by mouth once daily RISPERDAL 1 MG TABS One tablet by mouth daily RISPERIDONE [id number] July Noble WHOLESALE MANAGER End: 01-10-2024 take 1 tablet by mouth once daily at bedtime risperiDONE (RISPERDAL) 0.25 mg tablet Indications: Bloating , Epigastric pain , Diarrhea, unspecified type Take 0.25 mg by mouth daily at bedtime. 0 01/10/2024 Discontinued (Course of therapy completed) simethicone 180 mg oral capsule (6 sources) Start: 06-01-2016 End: 07-31-2016 take 1 tablet by mouth once daily as needed SIMETHICONE 180 MG CAPS One tablet by mouth daily as needed SIMETHICONE [id number] July Esquivel Noble WHOLESALE MANAGER Problems Active Problems Problem Classification Problem Date Documented Da te Episodic/Chronic Diabetes mellitus without complication (3 sources) Type 2 diabetes mellitus; Translations: [Type 2 diabetes mellitus without complications] Onset: 10-08-2016 10-08-2016 Chronic Esophageal disorders (3 sources) De La Vega's esophagus; 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] Onset: 10-28-2016 10-28-2016 Chronic Other gastrointestinal disorders (1 source) Dysphagia; Translations: [Dysphagia, unspecified] 01-10-2024 Episodic Other non-traumatic joint disorders (1 source) Pain in elbow; Translations: [Right elbow pain] Episodic Other nutritional; endocrine; and metabolic disorders (3 sources) Overweight; Translations: [Overweight] Onset: 10-19-2016 10-19-2016 Chronic Other upper respiratory disease (1 source) Hoarse; Translations: [Dysphonia] 01-10-2024 Episodic Substance-related disorders (3 sources) Tobacco dependence syndrome; Translations: [Nicotine dependence, unspecified, uncomplicated] Onset: 07-31-2016 07-31-2016 Chronic Systemic lupus erythematosus and connective tissue disorders (3 sources) Dermatomyositis; Translations: [Dermatopolymyositi s, unspecified with other organ involvement] Onset: 07-31-2016 07-31-2016 Chronic Thyroid disorders (1 source) Non-toxic multinodular goiter; Translations: [Nontoxic multinodular goiter] 01-10-2024 Chronic Past or Other Problems Problem Classification [...] Results Test Name Value Interpretation Reference Range Facility CNOVon 01-10-2024 CNOV Office Visit (ENWSTR ) JEANNA VARGAS ([id number]) 1950 F [facility] Date Time Provider Department 01/10/24 1:40 PM FIDELIA VÁSQUEZ ENWSTERRY During your visit today, we recorded the following information about you: Pulse Respiration Blood pressure Weight 73/minute 23/minute 118/78 92.5 kg Height 1.575 m Fidelia Vásquez MD 01/10/2024 6:57 PM Addendum [facility] Initial Clinic Visit Note NAME: Jeanna Vargas PCP: Vincent Stallworth MD Requesting Provider: Brittney Cochran MD My final recommendations will be communicated back to the requesting physician by way of shared medical record or letter via US mail. Chief Complaint: Thyroid nodule HPI: Jeanna Vargas is a 73 year old female was referred for evaluation of a thyroid nodules. History in brief, she was noted to have difficulty swallowing since 1 year, right > left, worsening progressively. Hence ultrasound thyroid was done and was found to have thyroid nodules She has COPD for which she was on prednisone oral daily, not any more. She is now on inhalational steroids Related symptoms: Swallowing difficulty: yes as above Shortness of breath when lying flat: no, has SOB while walking Hoarseness of voice: yes, she also reports not being able to speak as loudly as in the past History of radiation exposure to the neck: no No environmental or occupational exposure to radioactive materials such as proximity to nuclear plants or living in areas of endemic high radioactivity History of smoking: quit 5 years ago, was smoking about 1 PPD, since she was 19 years of age Family history of thyroid cancer: no Family history of thyroid nodules: no She reports she was on thyroid medication years ago due to tiredness and she went of of the medication spontaneously She also reports going to ENT at [facility], reports endoscopy (possibly laryngoscopy) was done followed by US thyroid showing thyroid nodules Patient also had a barium swallow done None of these reports are available to us at the time of encounter. Request sent [facility] to share records She also reports having PE, ater which she underwent CT with contrast due to which she sustained cardiac arrest and was revived after 14 mins of CPR PAST MEDICAL HISTORY Diagnosis Date COPD (chronic obstructive pulmonary disease) ([facility]) MD (muscular dystrophy) ([facility]) OCD (obsessive compulsive disorder) Oxygen dependent pt states uses O2 4L/prn at home PAST SURGICAL HISTORY Procedure Laterality Date CHOLECYSTECTOMY Cholecystectomy ALLERGIES Allergen Reactions Omeprazole Shortness of Breath nervous Amoxicillin Rash, Hives Codeine Other: See Comments headache Levaquin [Levofloxa* Hives can take liquid if no red dye Ranitidine Hives due to the red dye Red Dye Hives Sudafed [Pseudoephe* Rash Social History Tobacco Use Smoking status: Every Day Packs/day: 1 Types: Cigarettes Substance Use Topics Alcohol use: No FAMILY HISTORY Problem Relation Age of Onset Colon Cancer Mother COPD Father Heart Brother MEDICATIONS: Current Outpatient Medications on File Prior to Visit Medication Sig dicyclomine (BENTYL) 20 mg tablet Take 1 tablet by mouth three times daily before meals. OXYGEN, HOME THERAPY, Inhale as instructed as directed. Pt states uses 4L/NC at home prn azaTHIOprine (IMURAN) 50 mg tablet Take 100 mg by mouth once daily. levothyroxine (SYNTHROID) 75 mcg tablet Take 75 mcg by mouth daily before breakfast. citalopram (CELEXA) 20 mg tablet Take 20 mg by mouth once daily. in am citalopram (CELEXA) 40 mg tablet Take 40 mg by mouth daily at bedtime. docusate sodium (COLACE) 100 mg capsule Take 100 mg by mouth twice daily. ALPRAZolam (XANAX) 0.5 mg tablet Take 0.5 mg by mouth three times daily as needed. COMPOUNDED PRESCRIPTION laxative biscoydol takes 2 tablets in the pm risperiDONE (RISPERDAL) 0.25 mg tablet Take 0.25 mg by mouth daily at bedtime. No current facility-administered medications on file prior to visit. REVIEW OF SYSTEMS: As per HPI PHYSICAL EXAMINATION: BP: 118/78 Pulse: 73 Resp: 23 SpO2: 97 % During examination, she requested to be done while being seated on the chair General: no acute distress, alert and orientated X 3 Eyes:EOMI, pupils are equally round, anicteric sclera Neck - supple, no significant adenopathy, Thyroid: due to body habitus, and excess redundant skin on the neck, it was difficult to palpate nay nodules but the thyroid in general does not appear enlarged in size Neuro: alert, oriented, normal speech, no focal findings noted CV: normal rate and regular rhythm, S1 and S2 normal. Chest: has cannula in nares for home O2 Musculoskeletal: no joint tenderness, deformity or swelling Extremities: no edema, no discoloration Skin: no rash or erythema (more content not included)... Normal [facility] CR Elbow 3+ Views Righton CR Elbow 3+ Views Right Patient Name: JEANNA VARGAS Diagnostic Radiology ACCESSION EXAM DATE/TIME PROCEDURE ORDERING PROVIDER [id number] 10/17/2020 10:40 EST CR Elbow 3+ Views Right MD BARRY DEREK J CPT code 36555 Reason For Exam (CR Elbow 3+ Views Right) RIGHT ELBOW PAIN Report Examination: Right elbow Clinical Indication: RIGHT ELBOW PAIN, fracture Comparison: 08/15/2020 Findings: Three views right elbow. Mild osteopenia. There is subacute olecranon process fracture. Fracture was predominantly a three-part fracture along the proximal humerus involving the olecranon which was intra-articular. The middle and distal fragments appear healed with bony bridging. The most posterior fracture is incompletely united and displaced 0.6 cm proximally. There is moderate elbow joint effusion. There is mild osteoarthropathy with joint space narrowing and small osteophytes along the medial joint space and coronoid. Small enthesophyte lateral epicondyle. Impression: Intra-articular subacute olecranon fracture which is incompletely healed, posterior fracture fragment significantly displaced with no bony bridging. Moderate elbow joint effusion. Report Dictated on Final Dictating Physician: MD WELCH ANTHONY J Signed Date and Time: 10/17/2020 8:00 pm Signed by: MD WELCH ANTHONY J Transcribed Date and Time: 10/17/2020 8:01 Normal [facility] XR ELBOW RIGHT (MIN 3 VIEWS) on 10-17-2020 Patient Name: JEANNA VARGAS Diagnostic Radiology ACCESSION EXAM DATE/TIME PROCEDURE ORDERING PROVIDER [id number] 10/17/2020 10:40 EST CR Elbow 3+ Views Right MD BARRY DEREK J CPT code 96831 Reason For Exam (CR Elbow 3+ Views Right) RIGHT ELBOW PAIN Report Examination: Right elbow Clinical Indication: RIGHT ELBOW PAIN, fracture Comparison: 08/15/2020 Findings: Three views right elbow. Mild osteopenia. There is subacute olecranon process fracture. Fracture was predominantly a three-part fracture along the proximal humerus involving the olecranon which was intra-articular. The middle and distal fragments appear healed with bony bridging. The most posterior fracture is incompletely united and displaced 0.6 cm proximally. There is moderate elbow joint effusion. There is mild osteoarthropathy with joint space narrowing and small osteophytes along the medial joint space and coronoid. Small enthesophyte lateral epicondyle. Impression: Intra-articular subacute olecranon fracture which is incompletely healed, posterior fracture fragment significantly displaced with no bony bridging. Moderate elbow joint effusion. Report Dictated on --- Final --- Dictating Physician: MD WELCH ANTHONY J Signed Date and Time: 10/17/2020 8:00 pm Signed by: MD WELCH ANTHONY J Transcribed Date and Time: 10/17/2020 8:01 [facility] Work Phone: [facility], [facility] Incoming Radiology Results From [facility] - 10/17/2020 8:02 PM EST Patient Name: JEANNA VARGAS Diagnostic Radiology ACCESSION EXAM DATE/TIME PROCEDURE ORDERING PROVIDER [id number] 10/17/2020 10:40 EST CR Elbow 3+ Views Right MD BARRY DEREK J CPT code 60150 Reason For Exam (CR Elbow 3+ Views Right) RIGHT ELBOW PAIN Report Examination: Right elbow Clinical Indication: RIGHT ELBOW PAIN, fracture Comparison: 08/15/2020 Findings: Three views right elbow. Mild osteopenia. There is subacute olecranon process fracture. Fracture was predominantly a three-part fracture along the proximal humerus involving the olecranon which was intra-articular. The middle and distal fragments appear healed with bony bridging. The most posterior fracture is incompletely united and displaced 0.6 cm proximally. There is moderate elbow joint effusion. There is mild osteoarthropathy with joint space narrowing and small osteophytes along the medial joint space and coronoid. Small enthesophyte lateral epicondyle. Impression: Intra-articular subacute olecranon fracture which is incompletely healed, posterior fracture fragment significantly displaced with no bony bridging. Moderate elbow joint effusion. Report Dictated on --- Final --- Dictating Physician: MD WELCH ANTHONY J Signed Date and Time: 10/17/2020 8:00 pm Signed by: MD WELCH ANTHONY J Transcribed Date and Time: 10/17/2020 8:01 [facility] Work Phone: CR Elbow 3+ Views Righton CR Elbow 3+ Views Right Patient Name: JEANNA VARGAS Diagnostic Radiology ACCESSION EXAM DATE/TIME PROCEDURE ORDERING PROVIDER [id number] 08/15/2020 08:19 EST CR Elbow 3+ Views Right MD BARRY DEREK J CPT code 57327 Reason For Exam (CR Elbow 3+ Views Right) right elbow pain Report Examination: Right elbow Clinical Indication: right elbow pain Comparison: None Findings: Three views right elbow. There is mildly comminuted displaced fracture of the olecranon process. 2.5 x 1.3 cm proximal olecranon fracture fragment is displaced 1.2 cm proximal. Additional large olecranon fragment seen more inferiorly measures 1.7 x 1.2 cm. There is large elbow joint effusion/hemarthrosis . Small enthesophyte seen along the medial and lateral epicondyle. Small osteophyte seen along the coronoid process. Soft tissue swelling posterior elbow. Impression: Comminuted predominantly three-part fracture of the olecranon with significant displacement. Report Dictated on Workstation: [id number] [place] Final Dictating Physician: MD WELCH ANTHONY J Signed Date and Time: 08/15/2020 9:23 am Signed by: MD WELCH ANTHONY J Transcribed Date and Time: 08/15/2020 9:24 Normal [facility] XR ELBOW RIGHT (MIN 3 VIEWS) on 08-15-2020 Patient Name: JEANNA VARGAS Diagnostic Radiology ACCESSION EXAM DATE/TIME PROCEDURE ORDERING PROVIDER [id number] 08/15/2020 08:19 EST CR Elbow 3+ Views Right MD BARRY DEREK J CPT code 72603 Reason For Exam (CR Elbow 3+ Views Right) right elbow pain Report Examination: Right elbow Clinical Indication: right elbow pain Comparison: None Findings: Three views right elbow. There is mildly comminuted displaced fracture of the olecranon process. 2.5 x 1.3 cm proximal olecranon fracture fragment is displaced 1.2 cm proximal. Additional large olecranon fragment seen more inferiorly measures 1.7 x 1.2 cm. There is large elbow joint effusion/hemarthrosis . Small enthesophyte seen along the medial and lateral epicondyle. Small osteophyte seen along the coronoid process. Soft tissue swelling posterior elbow. Impression: Comminuted predominantly three-part fracture of the olecranon with significant displacement. Report Dictated on Workstation: [id number] --- Final --- Dictating Physician: MD WELCH ANTHONY J Signed Date and Time: 08/15/2020 9:23 am Signed by: MD WELCH ANTHONY J Transcribed Date and Time: 08/15/2020 9:24 [facility] [place], [facility], [facility] Incoming Radiology Results From [facility] - 08/15/2020 9:24 AM EST [facility]: [id number] Radiology ACCESSION EXAM DATE/TIME PROCEDURE ORDERING PROVIDER [id number] 08/15/2020 08:19 EST CR Elbow 3+ Views Right MD RUTH, MANDO [place] CPT code 43327 Reason For Exam (CR Elbow 3+ Views Right) right elbow pain Report Examination: Right elbow Clinical Indication: right elbow pain Comparison: None Findings: Three views right elbow. There is mildly comminuted displaced fracture of the olecranon process. 2.5 x 1.3 cm proximal olecranon fracture fragment is displaced 1.2 cm proximal. Additional large olecranon fragment seen more inferiorly measures 1.7 x 1.2 cm. There is large elbow joint effusion/hemarthrosis . Small enthesophyte seen along the medial and lateral epicondyle. Small osteophyte seen along the coronoid process. Soft tissue swelling posterior elbow. Impression: Comminuted predominantly three-part fracture of the olecranon with significant displacement. Report Dictated on Workstation: [id number] --- Final --- Dictating Physician: MD WELCH ANTHONY J Signed Date and Time: 08/15/2020 9:23 am Signed by: MD WELCH ANTHONY J Transcribed Date and Time: 08/15/2020 9:24 [place], [place] Lab Report: Bedside Glucoseo n 03-26-2017 Glucose 235 mg/dL High 70-110 [facility] [employer] Work Phone: Office Visit: bia Palmer 03-18-2017 Dietary management education, guidance, and counseling (procedure) yes Invalid Interpretation Code [facility] [employer] Work Phone: Documentation of current medications (procedure) Done Invalid Interpretation Code [facility] [employer] Work Phone: Fall risk assessment No Invalid Interpretation Code [facility] [employer] Work Phone: Protein mass conc Done [facility] [employer] Work Phone: Protein mass conc yes [facility] [email or web address] Work Phone: Smoking cessation education (procedure) yes Invalid Interpretation Code [facility] Work Phone: Tobacco smoking status NHIS Never Invalid Interpretation Code [facility] Work Phone: Tobacco smoking status NHIS Current every day smoker [facility] Work Phone: Tobacco use [facility] Current every day smoker Invalid Interpretation Code [facility] Work Phone: Lab Report: Bedside Glucoseo n 10-23-2016 Glucose mass conc 177 mg/dL High 70-110 [facility] Work Phone: Lab Report: Hemoglobin A1con 10-15-2016 Hemoglobin A1c/Hemoglobin.tot al mass fraction (Bld) 8.7 % High 4.2-6.3 [facility] Work Phone: Otheron 07-26-2007 CONVERTED ELECTRONIC SIGNATURE EXTERNAL CONSULT, PATHOLOGIST (Electronic signature on file) Final Signed Out: 07/26/2007 10:27 [facility] CONVERTED FINAL DIAGNOSIS INFLAMMATORY MYOPATHY. 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 However, the changes are not full blown. Clinical information is needed for interpretation. PLEASE SEE FULL OUTSIDE REPORT FROM [facility]. [facility] CONVERTED ORDERING PROVIDER Ordering Provider: KANCHAN CABRERA [facility] Otheron 07-13-2007 CONVERTED ELECTRONIC SIGNATURE EXTERNAL CONSULT, PATHOLOGIST (Electronic signature on file) Final Signed Out: 07/13/2007 16:05 [facility] CONVERTED FINAL DIAGNOSIS [facility]RICEPS MUSCLE BIOPSY - THE [facility] CONVERTED ORDERING PROVIDER Ordering Provider: KANCHAN CABRERA [facility] Vital Signs Date Time Vital Sign Value Performing Clinician Facility 01-10-2024 13:58-0400 Body height 157.5 cm Fidelia Vásquez MD Work Phone: [facility] 01-10-2024 13:58-0400 Body mass index (BMI) [Ratio] 37.31 kg/m2 Fidelia Vásquez MD Work Phone: [facility] 01-10-2024 13:58-0400 Body weight 92.53 kg Fidelia Vásquez MD Work Phone: [facility] 01-10-2024 13:58-0400 Diastolic blood pressure 78 mm[Hg] Fidelia Vásquez MD Work Phone: [facility] 01-10-2024 13:58-0400 Heart rate 73 /min Fidelia Vásquez MD Work Phone: [facility] 01-10-2024 13:58-0400 Respiratory rate 23 /min Fidelia Vásquez MD Work Phone: [facility] 01-10-2024 13:58-0400 SaO2% (BldA) [Mass fraction] 97 % Fidelia Vásquez MD Work Phone: [facility] Comment on above: 4L per [place] 01-10-2024 13:58-0400 Systolic blood pressure 118 mm[Hg] Fidelia Vásquez MD Work Phone: [facility] 03-18-2017 13:10-0400 BMI (Body Mass Index) 35.95 kg/m2 [facility] Work Phone: 03-18-2017 13:10-0400 Body Temperature 98.6 [degF] [facility] Work Phone: 03-18-2017 13:10-0400 BP Diastolic 85 mm[Hg] [facility] Work Phone: 03-18-2017 13:10-0400 BP Systolic 141 mm[Hg] [facility] Work Phone: 03-18-2017 13:10-0400 Height 157.48 cm [facility] Work Phone: 03-18-2017 13:10-0400 Pulse (Heart Rate) 73 /min [facility] Work Phone: 03-18-2017 13:10-0400 Respiratory Rate 18 /min [facility] Work Phone: 03-18-2017 13:10-0400 Weight 89.18 kg [facility] Work Phone: 10-19-2016 11:30-0400 Body Temperature 98.01 [degF] Yuliet Aguilar [facility] Work Phone: 10-19-2016 11:30-0400 BSA (Body Surface Area) 1.9 m2 Yuliet Aguilar [facility] Work Phone: 10-19-2016 11:30-0400 Height 157.48 cm Yuliet [facility] [employer] Work Phone: 10-19-2016 11:30-0400 Weight 88.99 kg Yuliet [facility] [employer] Work Phone: Encounters Encounter Date Encounter Type Care Provider Facility Start: 01-10-2024 End: 01-10-2024 ambulatory [facility] Facility:[facility] Start: 01-10-2024 End: 01-10-2024 Patient encounter procedure Fidelia Vásquez MD Work Phone: Endocrinology Comment on above: Nontoxic multinodula r goiter (Primary Dx); Dysphagia, unspecified type; Hoarseness of voice Start: 10-17-2020 End: 10-17-2020 Subsequent hospital visit by physician Mando Barry Work Phone: [employer] [facility] Comment on above: Right elbow pain Start: 08-15-2020 End: 08-15-2020 Subsequent hospital visit by physician Mando Barry Work Phone: [facility] [employer] [facility] Start: 07-13-2007 End: 07-13-2007 Patient encounter procedure Kanchan Kulkarniloreashwin Work Phone: [facility] Start: 07-13-2007 Results Only Kanchan clark Work Phone: [facility] Procedures Date Procedure Procedure Detail Performing Clinician Start: 10-17-2020 Radex elbow complete minimum 3 views Mando Barry Work Phone: Start: 08-15-2020 Radex elbow complete minimum 3 views Mando Barry Work Phone: Start: 03-18-2017 End: 03-18-2017 [...] - Td) DTaP/Tdap/Td vaccine (3 - Td) [place], [place] Start: 06-29-2030 Urine microalbumin profile DTaP,Tdap,Td Vaccine (3 - Td or Tdap) [facility] Start: 02-28-2024 End: 02-28-2024 Patient encounter procedure 02/28/2024 2:20 PM EDT Office Visit Endocrinology [address] [place] [address] Fidelia Vásquez MD [address] [place] [address] 4 week f/u thyroid Endocrinology Comment on above: 4 week f/u thyroid Start: 08-09-2023 Advance Directive Discussion Advance Directive Discussion [facility] Start: 08-09-2023 Behavioral Health Screening Behavioral Health Screening [facility] Start: 05-14-2023 Diabetes Screening Diabetes Screening [facility] Start: 04-09-2023 Covid-19 Vaccine () Covid-19 Vaccine () [facility] Start: 09-26-2020 End: 09-26-2020 Nurse Only [facility] Start: 08-18-2020 Annual Wellness Visit (AWV) Annual Wellness Visit (AWV) [facility] Work Phone: Start: 07-25-2020 Pneumococcal Vaccine: 65+ (2 of 2 - PPSV23 or PCV20) Pneumococcal Vaccine: 65+ (2 of 2 - PPSV23 or PCV20) [facility] Start: 04-09-2020 Influenza vaccination INFLUENZA (#1) [facility] Start: 03-26-2017 End: 03-26-2017 Appointment Appointment [facility] [employer] Work Phone: Start: 03-18-2017 End: 03-22-2017 Upper GI endoscopy, biopsy Upper gastrointestinal endoscopy; with biopsy [facility] [employer] Work Phone: Start: 10-28-2016 End: 03-26-2017 Upper GI endoscopy, biopsy Upper gastrointestinal endoscopy; with biopsy [facility] [employer] Work Phone: Start: 10-19-2016 End: 03-26-2017 Upper GI endoscopy, biopsy Upper gastrointestinal endoscopy; with biopsy [facility] [employer] Work Phone: Start: 10-09-2016 End: 10-09-2016 Endocrinology Referral [facility] [employer] Work Phone: Start: 10-08-2016 End: 03-26-2017 Follow Up after Imaging/labs Follow Up after Imaging/labs [facility] [employer] Work Phone: Start: 10-08-2016 End: 10-09-2016 Gastric emptying study NM Gastric Emptying Study [facility] [employer] Work Phone: Start: 10-08-2016 End: 10-08-2016 HbA1c Hemoglobin A1C [facility] [employer] Work Phone: Start: 10-08-2016 End: 10-09-2016 X-ray exam, upper gi tract Upper GI & Small Bowel [facility] [employer] Work Phone: Start: 09-24-2016 End: 09-24-2016 CSM CSM [facility] [employer] Work Phone: Start: 09-24-2016 End: 09-24-2016 Follow Up Appt 1 month Follow Up Appt 1 month [facility] [employer] Work Phone: Start: 09-24-2016 End: 09-24-2016 Pulmonary Function Test - complete Pulmonary Function Test - complete [facility] [employer] Work Phone: Start: 07-31-2016 End: 09-18-2016 Ct thorax w/o dye CT Chest without contrast [facility] [employer] Work Phone: Start: 07-31-2016 End: 07-31-2016 Follow Up Appt 1 month Follow Up Appt 1 month [facility] [employer] Work Phone: Start: 07-31-2016 End: 07-31-2016 Pulmonary Function Test - complete Pulmonary Function Test - complete [facility] [employer] Work Phone: Start: 07-31-2016 End: 09-18-2016 Pulmonary stress test/simple Pulmonary stress testing; simple (eg, 6-minute walk) [facility] [employer] Work Phone: Start: 07-31-2016 End: 09-18-2016 Tte w/doppler, complete Echo Complete with Color Flow [facility] [employer] Work Phone: Start: 2016 ADVANCE DIRECTIVE DISCUSSION ADVANCE DIRECTIVE DISCUSSION [facility] Start: 2016 BONE DENSITY BONE DENSITY [facility] Start: 2016 Pneumococcal 65+ years Vaccine (2 of 2 - PPSV23) Pneumococcal 65+ years Vaccine (2 of 2 - PPSV23) [facility] [place] Start: 2016 PNEUMOVAX AGE 65 AND OVER WITH 5YR LOOKBACK (#1) PNEUMOVAX AGE 65 AND OVER WITH 5YR LOOKBACK (#1) [facility] Start: 2016 Screening for osteoporosis Bone Density Screening [facility] Start: 2011 RSV Vaccine (1 - 1-dose 60+ series) RSV Vaccine (1 - 1-dose 60+ series) [facility] Start: 2006 Screening for osteoporosis DEXA (modify frequency per FRAX score) [place], [place] Start: 2001 Screening for malignant neoplasm of breast Breast cancer screen [place], [place] Start: 2001 Screening for malignant neoplasm of colon Colon cancer screen colonoscopy [place], [place] Start: 2001 Shingles Vaccine (1 of 2) Shingles Vaccine (1 of 2) [place], [place] Start: 2001 SHINGRIX VACCINE (1 of 2) SHINGRIX VACCINE (1 of 2) [facility] Start: 2001 Tuberculosis screening COLORECTAL CANCER SCREENING,SEE MODIFIER [facility] Start: 1996 DIABETES SCREEN DIABETES SCREEN [facility] Start: 1996 Lipid panel Lipid Screening [facility] Start: 1996 LIPID SCREEN LIPID SCREEN [facility] Start: 1996 Screening for malignant neoplasm of colon [facility] Start: 1991 Diabetes screen Diabetes screen [place], [place] Start: 1991 Lipid panel Lipid screen [place], [place] Start: 1991 Mammography MAMMOGRAM [facility] Start: 1991 Screening for malignant neoplasm of breast Mammogram Screening [facility] Start: 1970 Urine microalbumin profile DTAP,TDAP,TD (1 - Tdap) [facility] Start: 1969 HEPATITIS C SCREENING HEPATITIS C SCREENING [facility] Start: 1967 COVID-19 Vaccine (1 of 2) COVID-19 Vaccine (1 of 2) SALLY Work Phone: Start: 1950 Creatinine measurement Creatinine monitoring [place], [place] Start: 1951 Hepatitis C screening Hepatitis C screen [place], [place] Start: 1951 Potassium monitoring Potassium monitoring [place], [place] Payers Date Payer Category Payer Unknown [facility] AND [facility] ANTH MEDICARE ADVANTAGE O [id number] 2018-Present [phone] [address] [place] [address] [facility] [id number] 2018 Medicare [id number] 2004 Unknown [employer] [id number] 2004-2010 PPO [id number] Social History Date Type Detail Facility Tobacco smoking stat [facility] Unknown if ever smoked [facility] Start: 1950 Sex Assigned At Not on file C [facility] Start: 08-15-2020 End: 10-17-2020 Tobacco smoking status NHIS Never smoker Fon Exposure to SARS-CoV -2 (event) Not sure Fon Start: 10-17-2020 End: 01-10-2024 Tobacco use and exposure Never used [email or web address] Phone: Start: 01-10-2024 Tobacco smoking stat [facility] Ex-smoker [facility] End: 08-09-2018 History of tobacco use Current smoker [facility] End: 08-09-2018 History of tobacco use Cigarette Smoker [facility] Start: 01-10-2024 Cigarettes smoked current (pack per day) - Reported 1.5 [facility] History of tobacco use Passive smoker [facility] Start: 01-10-2024 Alcohol intake Current non-dr direct care counselor of alcohol (finding) [facility] Start: 01-10-2024 Tobacco use panel [facility] Medical Equipment Procedure Code Equipment Code Equipment Original Text Equipment Identifier Dates use 1 TEST STRIP to TEST BLOOD SUGAR 4 TIMES A DAY [id number] Start: 07-24-2020 use 1 LANCET to TEST BLOOD SUGAR four times a day [id number] Start: 07-24-2020 use 1 PEN NEEDLE to inject MEDICATION subcutaneously four times a day [id number] Start: 10-07-2020 use as directed [id number] Start: 07-25-2020 Instructions 01-10-2024 Patient Instructions Note Date & Type Note Facility 01-10-2024 Instructions Fidelia Vásquez MD - 01/10/2024 2:25 PM EDT We shall follow up after receiving the investigations done at [facility] documented in this encounter [facility] Progress note 01-10-2024 Note Date & Type Note Facility 01-10-2024 Note HNO ID: [id number] Author: FIDELIA VÁSQUEZ MD Service: ? Author Type: Physician Type: Progress Notes Filed: 01/10/2024 18:57 Note Text: [facility] Initial Clinic Visit Note NAME: Jeanna Vargas PCP: Vincent Stallworth MD Requesting Provider: Brittnye Cochran MD My final recommendations will be communicated back to the requesting physician by way of shared medical record or letter via [place] mail. Chief Complaint: Thyroid nodule HPI: Jeanna Vargas is a 73 year old female was referred for evaluation of a thyroid nodules. History in brief, she was noted to have difficulty swallowing since 1 year, right > left, worsening progressively. Hence ultrasound thyroid was done and was found to have thyroid nodules She has COPD for which she was on prednisone oral daily, not any more. She is now on inhalational steroids Related symptoms: Swallowing difficulty: yes as above Shortness of breath when lying flat: no, has SOB while walking Hoarseness of voice: yes, she also reports not being able to speak as loudly as in the past History of radiation exposure to the neck: no No environmental or occupational exposure to radioactive materials such as proximity to nuclear plants or living in areas of endemic high radioactivity History of smoking: quit 5 years ago, was smoking about 1 PPD, since she was 19 years of age Family history of thyroid cancer: no Family history of thyroid nodules: no She reports she was on thyroid medication years ago due to tiredness and she went of of the medication spontaneously She also reports going to ENT at [facility], reports endoscopy (possibly laryngoscopy) was done followed by US thyroid showing thyroid nodules Patient also had a barium swallow done None of these reports are available to us at the time of encounter. Request sent o [facility] to share records She also reports having PE, ater which she underwent CT with contrast due to which she sustained cardiac arrest and was revived after 14 mins of CPR PAST MEDICAL HISTORY Diagnosis Date COPD (chronic obstructive pulmonary disease) ([facility]) MD (muscular dystrophy) ([facility]) OCD (obsessive compulsive disorder) Oxygen dependent pt states uses O2 4L/prn at home PAST SURGICAL HISTORY Procedure Laterality Date CHOLECYSTECTOMY Cholecystectomy ALLERGIES Allergen Reactions Omeprazole Shortness of Breath nervous Amoxicillin Rash, Hives Codeine Other: See Comments headache Levaquin [Levofloxa* Hives can take liquid if no red dye Ranitidine Hives due to the red dye Red Dye Hives Sudafed [Pseudoephe* Rash Social History Tobacco Use Smoking status: Every Day Packs/day: 1 Types: Cigarettes Substance Use Topics Alcohol use: No FAMILY HISTORY Problem Relation Age of Onset Colon Cancer Mother COPD Father Heart Brother MEDICATIONS: Current Outpatient Medications on File Prior to Visit Medication Sig dicyclomine (BENTYL) 20 mg tablet Take 1 tablet by mouth three times daily before meals. OXYGEN, HOME THERAPY, Inhale as instructed as directed. Pt states uses 4L/NC at home prn azaTHIOprine (IMURAN) 50 mg tablet Take 100 mg by mouth once daily. levothyroxine (SYNTHROID) 75 mcg tablet Take 75 mcg by mouth daily before breakfast. citalopram (CELEXA) 20 mg tablet Take 20 mg by mouth once daily. in am citalopram (CELEXA) 40 mg tablet Take 40 mg by mouth daily at bedtime. docusate sodium (COLACE) 100 mg capsule Take 100 mg by mouth twice daily. ALPRAZolam (XANAX) 0.5 mg tablet Take 0.5 mg by mouth three times daily as needed. COMPOUNDED PRESCRIPTION laxative biscoydol takes 2 tablets in the pm risperiDONE (RISPERDAL) 0.25 mg tablet Take 0.25 mg by mouth daily at bedtime. No current facility-administered medications on file prior to visit. REVIEW OF SYSTEMS: As per HPI PHYSICAL EXAMINATION: BP: 118/78 Pulse: 73 Resp: 23 SpO2: 97 % During examination, she requested to be done while being seated on the chair General: no acute distress, alert and orientated X 3 Eyes:EOMI, pupils are equally round, anicteric sclera Neck - supple, no significant adenopathy, Thyroid: due to body habitus, and excess redundant skin on the neck, it was difficult to palpate nay nodules but the thyroid in general does not appear enlarged in size Neuro: alert, oriented, normal speech, no focal findings noted CV: normal rate and regular rhythm, S1 and S2 normal. Chest: has cannula in nares for home O2 Musculoskeletal: no joint tenderness, deformity or swelling Extremities: no edema, no discoloration Skin: no rash or erythema LABS AND IMAGING: update at 6.30 pm on 01/10/24 12/31/2023 TSH 2.62 ?IU/mL (0.358-3.74) HbA1c 7.2% Thyroid ultrasound: imaging report not received yet T-lfx-hdfuelqul (barium swallow) with fluoroscopy: 11/02/2023 Reason for exam: Female, 73 years old. Dysphagia, unspecified Technique: 22 views (more content not included)... [facility] History of Present illness Narrative 01-10-2024 Fidelia Vásquez MD - 01/10/2024 1:53 PM EDT Note Date & Type Note Facility 01-10-2024 History of Presen t illness Narrative [facility] Initial Clinic Visit Note NAME: Jeanna Vargas PCP: Vincent Stallworth MD Requesting Provider: Brittney Cochran MD My final recommendations will be communicated back to the requesting physician by way of shared medical record or letter via [place] mail. Chief Complaint: Thyroid nodule HPI: Jeanna Vargas is a 73 year old female was referred for evaluation of a thyroid nodules. History in brief, she was noted to have difficulty swallowing since 1 year, right > left, worsening progressively. Hence ultrasound thyroid was done and was found to have thyroid nodules She has COPD for which she was on prednisone oral daily, not any more. She is now on inhalational steroids Related symptoms: Swallowing difficulty: yes as above Shortness of breath when lying flat: no, has SOB while walking Hoarseness of voice: yes, she also reports not being able to speak as loudly as in the past History of radiation exposure to the neck: no No environmental or occupational exposure to radioactive materials such as proximity to nuclear plants or living in areas of endemic high radioactivity History of smoking: quit 5 years ago, was smoking about 1 PPD, since she was 19 years of age Family history of thyroid cancer: no Family history of thyroid nodules: no She reports she was on thyroid medication years ago due to tiredness and she went of of the medication spontaneously She also reports going to ENT at [facility], reports endoscopy (possibly laryngoscopy) was done followed by US thyroid showing thyroid nodules Patient also had a barium swallow done None of these reports are available to us at the time of encounter. Request sent [facility] to share records She also reports having PE, ater which she underwent CT with contrast due to which she sustained cardiac arrest and was revived after 14 mins of CPR PAST MEDICAL HISTORY Diagnosis Date COPD (chronic obstructive pulmonary disease) ([facility]) MD (muscular dystrophy) ([facility]) OCD (obsessive compulsive disorder) Oxygen dependent pt states uses O2 4L/prn at home PAST SURGICAL HISTORY Procedure Laterality Date CHOLECYSTECTOMY Cholecystectomy ALLERGIES Allergen Reactions Omeprazole Shortness of Breath nervous Amoxicillin Rash, Hives Codeine Other: See Comments headache Levaquin [Levofloxa* Hives can take liquid if no red dye Ranitidine Hives due to the red dye Red Dye Hives Sudafed [Pseudoephe* Rash Social History Tobacco Use Smoking status: Every Day Packs/day: 1 Types: Cigarettes Substance Use Topics Alcohol use: No FAMILY HISTORY Problem Relation Age of Onset Colon Cancer Mother COPD Father Heart Brother MEDICATIONS: Current Outpatient Medications on File Prior to Visit Medication Sig dicyclomine (BENTYL) 20 mg tablet Take 1 tablet by mouth three times daily before meals. OXYGEN, HOME THERAPY, Inhale as instructed as directed. Pt states uses 4L/NC at home prn azaTHIOprine (IMURAN) 50 mg tablet Take 100 mg by mouth once daily. levothyroxine (SYNTHROID) 75 mcg tablet Take 75 mcg by mouth daily before breakfast. citalopram (CELEXA) 20 mg tablet Take 20 mg by mouth once daily. in am citalopram (CELEXA) 40 mg tablet Take 40 mg by mouth daily at bedtime. docusate sodium (COLACE) 100 mg capsule Take 100 mg by mouth twice daily. ALPRAZolam (XANAX) 0.5 mg tablet Take 0.5 mg by mouth three times daily as needed. COMPOUNDED PRESCRIPTION laxative biscoydol takes 2 tablets in the pm risperiDONE (RISPERDAL) 0.25 mg tablet Take 0.25 mg by mouth daily at bedtime. No current facility-administered medications on file prior to visit. REVIEW OF SYSTEMS: As per HPI PHYSICAL EXAMINATION: BP: 118/78 Pulse: 73 Resp: 23 SpO2: 97 % During examination, she requested to be done while being seated on the chair General: no acute distress, alert and orientated X 3 Eyes:EOMI, pupils are equally round, anicteric sclera Neck - supple, no significant adenopathy, Thyroid: due to body habitus, and excess redundant skin on the neck, it was difficult to palpate nay nodules but the thyroid in general does not appear enlarged in size Neuro: alert, oriented, normal speech, no focal findings noted CV: normal rate and regular rhythm, S1 and S2 normal. Chest: has cannula in nares for home O2 Musculoskeletal: no joint tenderness, deformity or swelling Extremities: no edema, no discoloration Skin: no rash or erythema LABS AND IMAGING: update at 6.30 pm on 01/10/24 12/31/2023 TSH 2.62 IU/mL (0.358-3.74) HbA1c 7.2% Thyroid ultrasound: imaging report not received yet N-agd-pdknrsnje (barium swallow) with fluoroscopy: 11/02/2023 Reason for exam: Female, 73 years old. Dysphagia, unspecified Technique: 22 views of esophagus were obtained following swallowing of barium Fluoroscopy time (applied): (35 seconds) minutes/seconds. 23.67 mGy Comparison: None Findings: There is no demonstrated esophageal foreign body. 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 Normal gastroesophageal junction, without a demonstrated hiatal hernia. The patient ingested a 12 mm tablet of barium without any difficulty. There is atherosclerotic calcification of the aortic arch with tortuosity of the descending aorta. Normal visualized pulmonary parenchyma. Normal visualized osseous structures of the thorax. Impression: Tertiary contractions of the mid and distal esophagus. No evidence of gastroesophageal reflux. ASSESSMENT AND PLAN: Jeanna Vargas is a 73 year old female presenting to endocrinology for evaluation of thyroid nodule. Thyroid nodule: - I do not have any report for thyroid imaging available yet - I reviewed functioning and non functioning nodules. In case of non functioning nodules, possibility of cancer discussed. Compressive symptoms of nodules discussed in case of large size. Risk of cancer discussed and the characteristics and size of the nodules determine if FNAB is required in a non functioning nodule with no compressive symptoms She has hoarseness of voice for about one year, progressively worsening. She has dysphagia. Surgery might be an option for her to relieve symptoms if these are deemed to be due to thyroid nodule/enlarged thyroid and this was discussed. I also discussed that I will wait for her reports on barium swallow and thyroid ultrasound, before discussing about surgery. There might be a possibility that the nodule might require biopsy before surgery is discussed She reports she is worried about cancer and would not prefer surgery either. I reviewed we shall discuss the best next step based on the work up +/- further workup as needed Follow up in 4 weeks assuming we shall receive medical records by then Update at 6.30 pm: Due to dysphagia, she had barium swallow which does not show any issues of the esophagus in mid and distal part. Will await thyroid ultrasound report Medical Decision Making: Problems: Moderate: New problem with uncertain prognosis Data: Unique source(s) for external note(s) reviewed: 1 Unique test result(s) reviewed: 3+ Independent interpretation of test from other physician/QHCP Risk: High: Decision on elective major surgery w/ risk factors Medical Decision Making Level: 5 - High Fidelia Vásquez MD Endocrinology Associate Staff [facility] Endocrinology and Metabolism [place] [phone] documented in this encounter [facility] Evaluation note Note Date & Type Note Facility Evaluation note Diagnosis Nontoxic multinodular goiter- Primary Dysphagia, unspecified type Hoarseness of voice Dysphonia documented in this encounter [facility] Advance Directives No Advanced Directives Records FoundDocuments on File Type Date Recorded 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 Advance Directive(s) Advance Directive(s) 04/28/2016 5:40 PM Advance Directive(s) 05/04/2016 7:48 AM Assessments Diagnosis Right elbow pain Pain in joint, upper arm Summary Purpose Family History No Family History Records FoundNo Family History Records Found Additional Source Comments Source Comments (unrecognize d section and content) In the event this informatio n is protected by the Federal Confidentiality of Alcohol and Drug Abuse Patient Records regulations: The Federal rules restrict any use of the information to criminally investigate or prosecute any alcohol or drug abuse patient.[facility] the event this information is protected by the Federal Confidentiality of Alcohol and Drug Abuse Patient Records regulations: The Federal rules restrict any use of the information to criminally investigate or prosecute any alcohol or drug abuse patient.[facility] INFORMATION SOURCE (unrecogn ized section and content) DATE CREATED AUTHOR 10/23/2020 [employer] DATE CREATED AUTHOR AUTHOR'S ORGANIZ ATION 01/11/2024 [facility] Reason for Visit (unrecogniz ed section and content) Reason Comments Thyroid Nodule Care Teams (unrecognized sec tion and content) Client Relations Specialist Relationship Specialty Start Date End Date Brittney Cochran MD [address] [place] [address] PCP - General Gerontology 01/10/24 FOR RECORDS PERTAINING TO PATIENTS WHO ARE [...] BE BASED ON THE PRIMARY CLINICAL RECORDS. [employer] [facility]. provides no warranty or guarantee of the accuracy or completeness of information in this document.
--- NOTE | 2024-06-04 21:05 | CT_ITS ---
EXAM: CT Abdomen And Pelvis W/O Contrast Injection HISTORY: Pain RLQ RLQ PAIN X 3 DAYS,CONSTIPATION WITH NO BM X 4 DAYS,PT HAS BLEEDING HEMORRHOIDS HX:DM,GERD,HLD,HTN,UTI PRIOR CHOLECYSTECTOMY TECHNIQUE: Routine protocol CT abdomen and pelvis. IV Contrast: None.. Oral contrast: None. RADIATION DOSAGE (If Supplied By Facility): CTDIvol = ( 19.36 ) mGy, DLP = ( 981.78 ) mGycm Individualized dose optimization techniques were used for this CT. COMPARISON: None. LIMITATIONS: None. FINDINGS: LOWER CHEST: Reticular opacities in the lower lungs may be scarring or subsegmental atelectasis. Coronary artery calcifications are noted. LIVER: Scattered small calcifications. A few small cysts. GALLBLADDER AND BILIARY TREE: The gallbladder is surgically absent. PANCREAS: Grossly unremarkable. SPLEEN: Small calcifications previous granulomatous process.. ADRENAL GLANDS: Grossly unremarkable. KIDNEYS AND URETERS: No calculi demonstrated. No hydronephrosis. PERITONEUM: No free air. No free fluid. BOWEL: A few scattered diverticula in the colon. Mild perirectal stranding. The rectosigmoid colon is nondistended, with suboptimal evaluation of the colonic wall. Mild amount of stool in the descending colon to the sigmoid. Nonspecific fluid levels in the more proximal colon, ascending through transverse colon. No bowel obstruction. APPENDIX: Visualized and unremarkable. No evidence of acute appendicitis. VESSELS: Abdominal aorta is normal caliber. REPRODUCTIVE ORGANS: Grossly unremarkable URINARY BLADDER: Grossly unremarkable. ABDOMINAL WALL: Small umbilical hernia contains only fat, no bowel. BONES: No acute abnormalities. CT/Abdomen/Pelvis without Cont IMPRESSION: Mild perirectal stranding. Possible proctitis or related to hemorrhoids. Mild stool in the descending colon with nondistended rectosigmoid colon. No bowel obstruction, but a subtle colonic lesion cannot be entirely excluded. If symptoms persist, follow-up may be helpful. Colonic diverticulosis without evidence of acute diverticulitis. Electronically Signed: Loreta Lakhani MD at 22:24 EDT ,
[2024-06-04 21:24] VITALS: BP 120/47; PULSE 78; RESP 19; O2SAT 98
[2024-06-04 21:30] LABS: Absolute Lymphocyte Count 1.21 X10^3/uL (0.83-4.51); Absolute Neutrophil Count 15.2 X10^3/uL (2.0-7.7); Basophil# 0.09 X10^3/uL; Basophil% 0.5 % (0-1); Eosinophil# 0.07 X10^3/uL; Eosinophils% 0.4 % (0-5); Hematocrit 33.4 % (37-47); Lymphocyte # 1.21 X10^3/ul (0.83-4.51); Lymphocyte % 6.8 % (19-41); Mean Corp Hgb Conc 32.9 g/dL (32-36); Mean Corpuscular Hgb 29.1 pg (27.0-32.0); Mean Corpuscular Volume 88.4 fL (81-99); Mean Platelet Vol. 10.2 fl (6.2-12.0); Monocyte# 1.08 X10^3/uL; Monocyte% 6.1 % (0-10); NRBC Flagged by Analyzer 0 % (0-5); Neutrophil # 15.17 X10^3/uL (2.7-7.7); Neutrophil % 85.6 % (47-70); Platelet Count 348 K/mm3 (150-450); RBC Distribution Width CV 12.7 % (11.6-14.6); Red Blood Count 3.78 M/mm3 (4.2-5.4); White Blood Count 17.7 K/mm3 (4.4-11.0)
[2024-06-04 21:43] LABS: AST(SGOT) 15 U/L (15-37); Alanine Aminotransfer ALT/SGPT 23 U/L (13-56); Albumin, Serum 3.4 g/dL (3.2-5.0); Alkaline Phosphatase 116 U/L (45-117); Anion Gap 4 (5-15); BUN 12 mg/dL (7-18); BUN/Creat Ratio 14.3 RATIO (10-20); Calcium,Total 9.5 mg/dL (8.5-10.1); Chloride 95 mmol/L (98-107); Creatinine, Serum 0.84 mg/dL (0.55-1.02); EST Glomerular Filtration Rate 71 mL/min (>60); Est Glom Filt Rate - Afr Amer 86 mL/min (>60); Estimated Creatinine Clearance 65.89 ml/min; Globulin 3.3 g/dL (2.2-4.2); Glucose 88 mg/dL (74-106); Potassium 4.2 mmol/L (3.5-5.1); Protein, Total 6.7 g/dL (6.4-8.2); Sodium Level 130 mmol/L (136-145)
[2024-06-04 22:59] VITALS: BP 115/75; PULSE 88; RESP 19; TEMP 36.2; O2SAT 98
[2024-06-04 23:00] VITALS: PULSE 88; RESP 19; TEMP 36.2; O2SAT 98
[2024-06-05 00:57] VITALS: PULSE 79; RESP 18; O2SAT 97
== END 2024-06-05 01:12 | disposition skilled nursing facility (03) ==
PROVIDERS: Emergency Provider Emergency Medicine; PCP Internal Medicine; Visit Provider Emergency Medicine
DX: K59.09 Other constipation (principal); I11.0 Hypertensive heart disease with heart failure; I50.30 Unspecified diastolic (congestive) heart failure; J44.9 Chronic obstructive pulmonary disease, unspecified; E11.9 Type 2 diabetes mellitus without complications; Z79.4 Long term (current) use of insulin; R10.31 Right lower quadrant pain; K64.4 Residual hemorrhoidal skin tags; E78.5 Hyperlipidemia, unspecified; E66.9 Obesity, unspecified; I25.10 Atherosclerotic heart disease of native coronary artery without angina pectoris; F41.9 Anxiety disorder, unspecified; F32.A Depression, unspecified; L40.9 Psoriasis, unspecified; M54.9 Dorsalgia, unspecified; G89.29 Other chronic pain; G47.33 Obstructive sleep apnea (adult) (pediatric); Z88.0 Allergy status to penicillin; Z88.1 Allergy status to other antibiotic agents; Z95.5 Presence of coronary angioplasty implant and graft; Z79.02 Long term (current) use of antithrombotics/antiplatelets; Z90.49 Acquired absence of other specified parts of digestive tract; Z79.899 Other long term (current) drug therapy; Z87.891 Personal history of nicotine dependence
CPT/HCPCS: 74176; 80053; 85025; 99285; A4216

== ENCOUNTER 2024-07-04 14:19 | Emergency (ER) | payer MEDICARE, MEDICAID, SELFPAY ==
[2021-11-03 12:08] VITALS: BMI 34.9
[2024-07-04] VITALS (12 sets, daily range): BP systolic 93–136; BP diastolic 46–107; PULSE 68–85; RESP 13–40; TEMP 36–36.9; O2SAT 97–100; BMI 38.8
--- NOTE | 2024-07-04 15:50 | RAD_ITS ---
STUDY: X-RAY CHEST REASON FOR EXAM: Female, 73 years old. Dyspnea TECHNIQUE: Frontal and lateral views of the chest. COMPARISON: December 28, 2023 FINDINGS: Possible Left perihilar subsegmental atelectasis. There is no demonstrated pleural abnormality. Normal size heart. Normal mediastinum and wallace. Normal visualized pulmonary arteries. Normal visualized aortic arch and descending thoracic aorta. Normal visualized thoracic spine. Normal visualized ribs, clavicles, and shoulders. There is no demonstrated abnormality of the visualized soft tissue structures of the upper abdomen. RAD/Chest PA and Lateral IMPRESSION: Possible Left perihilar scarring. Electronically Signed: Suman Cohen MD at 16:16 EST ,
[2024-07-04 15:54] LABS: Absolute Lymphocyte Count 0.86 X10^3/uL (0.83-4.51); Absolute Neutrophil Count 14.8 X10^3/uL (2.0-7.7); Basophil# 0.08 X10^3/uL; Basophil% 0.5 % (0-1); Eosinophil# 0.05 X10^3/uL; Eosinophils% 0.3 % (0-5); Hematocrit 35.2 % (37-47); Hemoglobin 11.1 g/dL (12.0-15.0); Lymphocyte # 0.86 X10^3/ul (0.83-4.51); Lymphocyte % 5.2 % (19-41); Mean Corp Hgb Conc 31.5 g/dL (32-36); Mean Corpuscular Volume 91.9 fL (81-99); Monocyte# 0.64 X10^3/uL; Monocyte% 3.9 % (0-10); NRBC Flagged by Analyzer 0 % (0-5); Neutrophil # 14.81 X10^3/uL (2.7-7.7); Neutrophil % 89.3 % (47-70); Platelet Count 363 K/mm3 (150-450); RBC Distribution Width CV 13.2 % (11.6-14.6); RBC Distribution Width SD 43.3 fl (35.1-43.9); Red Blood Count 3.83 M/mm3 (4.2-5.4); White Blood Count 16.6 K/mm3 (4.4-11.0)
[2024-07-04 16:20] LABS: Anion Gap 6 (5-15); BUN 14 mg/dL (7-18); BUN/Creat Ratio 12.1 RATIO (10-20); Calcium,Total 9.5 mg/dL (8.5-10.1); Chloride 102 mmol/L (98-107); Creatinine, Serum 1.16 mg/dL (0.55-1.02); EST Glomerular Filtration Rate 49 mL/min (>60); Est Glom Filt Rate - Afr Amer 59 mL/min (>60); Estimated Creatinine Clearance 47.49 ml/min; Glucose 241 mg/dL (74-106); Potassium 4.7 mmol/L (3.5-5.1); Sodium Level 136 mmol/L (136-145); Troponin-I HS (w/2H Reflex) 6 pg/mL (3.0-54.0)
--- NOTE | 2024-07-04 17:45 | EX.ED.DYSGE1 ---
HPI History of Present Illness Chief Complaint: Weakness Detail of Chief Complaint: Shortness of breath prior to cataract surgery, nausea and vomiting after youssef Informant: patient Onset/Context/Timing Onset: Today Context: Sudden Onset Timing: Intermittent Quality: Detailed HPI narrative Location: Detailed HPI narrative Current Severity: Gone Maximum Severity: Moderate Worsened by: Nothing specific Relieved by: Not applicable Associated Symptoms Associated Symptoms: HPI narrative Narrative Narrative: Patient is a 73-year-old woman. She has history of coronary artery disease, chronic hypoxemic respiratory failure, diabetes, chronic fatigue, elevated TSH who presents with multiple symptoms. She states she had abrupt onset of shortness of breath 1 hour prior to her cataract surgery. She was cleared for surgery. She had her surgery. She went back home. She then went to the restroom and had an episode of nausea and vomiting. There was no coffee-ground emesis or blood in her emesis. She presently has no shortness of breath and does not feel nauseous. She has not had any chest pain during this. She has no history of PE or DVT. She denies leg pain, swelling discoloration. She denies fever, chills night sweats. She denies weight gain or weight loss. She presently denies headache. Denies ringing or ears decreased hearing. Prior similar symptoms: Yes Recent Illness/Hospitalization: No PFSH PFSH Medical History Anxiety Pancreatitis On home oxygen therapy Coronary artery disease Chronic constipation Insomnia Endotracheally intubated Bilateral pneumonia MARK treated with BiPAP Morbid obesity Diastolic CHF Chest pain Obesity Chronic back pain Anxiety and depression Anemia Thyroid nodule Hepatitis Former smoker Psoriasis Smoking greater than 40 pack years HLD (hyperlipidemia) Back pain Asthma with COPD Type 2 diabetes mellitus Hypertension Atherosclerotic heart disease of [place] coronary artery without angina pectoris Chronic respiratory failure COPD (chronic obstructive pulmonary disease) Home Medications ?Medication ?Instructions ?Recorded ?Last Taken ?Type Handicap Placard #1 ea 12/12/20 Unknown Rx bisacodyl 5 mg tablet,delayed 5 mg PO QHS PRN constipation 30 11/13/21 Unknown Rx release (Dulcolax (bisacodyl)) days #30 tabs pen needle, diabetic 32 gauge x #50 ea 02/11/22 Unknown Rx blood sugar diagnostic (True #100 ea 09/11/22 Unknown Rx Metrix Glucose Test Strip) blood-glucose meter (True Metrix #1 ea 09/11/22 Unknown Rx Glucose Meter) albuterol sulfate 90 mcg/actuation 2 puff inhalation Q6H PRN 11/06/22 Unknown Rx aerosol inhaler shortness of breath or wheezing #18 grams ipratropium 0.5 mg-albuterol 3 mg 3 ml inhalation Q4H PRN PRN SOB 11/10/22 Unknown Rx (2.5 mg base)/3 mL nebulization &/OR WHEEZING #180 mL soln cane #1 ea 11/16/22 Unknown Rx citalopram 40 mg tablet 40 mg PO QHS depression #90 tabs 11/16/22 Unknown Rx isosorbide mononitrate 60 mg 60 mg PO DAILY BP #90 tabs 12/26/22 Unknown Rx tablet,extended release 24 hr nitroglycerin 0.4 mg sublingual 0.4 mg sublingual Q5-15M PRN Pain 12/26/22 Unknown Rx tablet #30 tabs flash glucose sensor (FreeStyle #2 ea 01/06/23 Unknown Rx Emily 2 Sensor kit) atorvastatin 80 mg tablet 80 mg PO QHS cholesterol 01/26/23 Unknown History clopidogrel 75 mg tablet 75 mg PO DAILY blood thinner 01/26/23 Unknown History metoprolol tartrate 25 mg tablet 12.5 mg PO BID blood pressure 01/26/23 Unknown History flash glucose scanning reader #1 ea 03/23/23 Unknown Rx (FreeStyle Emily 2 Noble) pantoprazole 40 mg tablet,delayed 40 mg PO BID stomach #180 tabs 05/20/23 Unknown Rx release aluminum-magnesium hydroxide 225 30 ml PO Q4H PRN UPSET STOMACH 07/23/23 Unknown History mg-200 mg/5 mL oral suspension dextrose 40 % oral gel (Glucose 10 g PO Q15M PRN hypoglycemia 07/23/23 Unknown History Gel) budesonide 1 mg/2 mL suspension 0.5 mg inhalation BID breathing 08/13/23 Unknown History for nebulization potassium chloride 20 mEq 20 meq PO BID supplement 08/22/23 Unknown History tablet,extended release trazodone 50 mg tablet 25 mg PO QHS sleep 08/22/23 Unknown History insulin lispro 100 unit/mL See Protocol subcut ACHS #0 mL 08/26/23 Unknown Rx subcutaneous pen (Humalog KwikPen (U-100) Insulin) dulaglutide 0.75 mg/0.5 mL 0.75 mg subcut QWEEK 12/18/23 Unknown History subcutaneous pen injector fluticasone propionate 50 1 spray intranasal Q12H PRN 12/18/23 Unknown History mcg/actuation nasal allergy symptoms spray,suspension (Allergy Relief (fluticasone)) insulin glargine 100 unit/mL (3 30 unit subcut QHS diabetic 12/18/23 Unknown History mL) subcutaneous pen (Basaglar managment KwikPen U-100 Insulin) lidocaine 5 % topical 1 patch topical DAILY PRN pain 12/18/23 Unknown History patch-adhesive silicone combo pack montelukast 10 mg tablet 10 mg PO QHS 12/18/23 Unknown History (Singulair) tizanidine 2 mg capsule (Zanaflex) 2 mg PO Q8H PRN muscle spasticity 12/18/23 Unknown History ondansetron 4 mg disintegrating 4 mg PO Q8H PRN PRN Nausea #10 tabs 12/28/23 Unknown Rx tablet losartan 50 mg tablet 50 mg PO QDAY 04/25/24 Unknown History acetaminophen 500 mg tablet 1,000 mg PO Q8 PRN pain 06/04/24 Unknown History insulin lispro 100 unit/mL 5 unit subcut 1700 06/04/24 Unknown History subcutaneous pen (Humalog KwikPen (U-100) Insulin) insulin lispro 100 unit/mL 15 unit subcut QHS diabetes 06/04/24 Unknown History subcutaneous pen (Humalog KwikPen (U-100) Insulin) sucralfate 1 gram tablet (Carafate) 1 g PO TID acid reflux 06/04/24 Unknown History linaclotide 145 mcg capsule 145 mcg PO QAM #60 caps 06/20/24 Unknown Rx (Linzess) alprazolam 0.25 mg tablet 0.25 mg PO QHS PRN anxiety #30 tabs 06/28/24 Unknown Rx Allergy/AdvReac Type Severity Reaction Status Date / Time Iodinated Contrast Media Allergy Severe Anaphylaxis Verified 07/03/24 14:05 amoxicillin (Amoxicillin) Allergy Intermediate Rash Verified 07/03/24 14:05 hydrocodone Allergy Intermediate SWELLING Verified 07/03/24 14:05 gabapentin (From Neurontin) Allergy Shortness Verified 07/03/24 14:05 of breath levofloxacin (From Levaquin) Allergy Hives Verified 07/03/24 14:05 pseudoephedrine HCl (From Allergy Shortness Verified 07/03/24 14:05 Sudafed) of breath red dye Allergy Hives Verified 07/03/24 14:05 prednisone AdvReac Severe mean mood Verified 07/03/24 14:05 clonazepam (From Klonopin) AdvReac Depression Verified 07/03/24 14:05 codeine AdvReac HEADACHE Verified 07/03/24 14:05 Family History Brother Heart disease Mother Colon cancer Heart disease Surgical History History of coronary artery stent placement History of left heart catheterization (LHC) (~09/23/20) History of cholecystectomy Stented coronary artery (12/28/18) Social History Smoking Status: Former smoker pack-years: 40 how long ago did patient quit smokin year ago alcohol intake: never substance use type: does not use caffeine: Yes Type: carbonated beverages and tea what type of physical activity do you participate in: none ROS ROS ED Constitutional Constitutional ED: Denies chills, fever(s), subjective, sweats or weight loss Eyes Eyes: Reports change in vision bilateral (Status post surgery); Denies blurry vision ENT ENT ED: Denies ear pain, rhinorrhea or sore throat Cardiovascular Cardiovascular: Denies chest pain, orthopnea, palpitations, paroxysmal nocturnal dyspnea or racing heartbeat Respiratory/Chest Respiratory/Chest: Reports dyspnea; Denies cough, dyspnea on exertion, orthopnea or paroxysmal nocturnal dyspnea Gastrointestinal Gastrointestinal: Reports nausea and vomiting; Denies abdominal pain, constipation, diarrhea or melena Genitourinary Genitourinary ED: Denies dysuria, hematuria or urinary frequency Musculoskeletal Musculoskeletal: Denies arthralgias, back pain, myalgias or neck pain Integumentary Denies rash Neurologic Neurologic: Reports weakness; Denies headache(s) or paresthesias Psychiatric Psychiatric: Denies anxiety or depression Endocrine Endocrinology: Denies cold intolerance or heat intolerance Hematologic/Lymphatic Hematologic/Lymphatic: Reports systems reviewed and no addt'l complaints, except as documented EXAM Physical Exam Const Vital Signs: 07/04/24 14:20 07/04/24 14:57 07/04/24 16:19 Temperature 96.8 F L Temperature Source Temporal Pulse Rate 75 71 Respiratory Rate 18 40 H Respiratory Effort Short of Breath Blood Pressure 93/46 L 115/96 H Blood Pressure Mean 61 102 Pulse Ox 100 100 Oxygen Delivery Method Nasal Cannula Nasal Cannula Oxygen Flow Rate (L/min) 4 4 07/04/24 16:52 07/04/24 16:53 07/04/24 17:00 Temperature Temperature Source Pulse Rate 70 68 Respiratory Rate 26 H 21 H Respiratory Effort Blood Pressure 115/96 H 128/74 H Blood Pressure Mean 105 90 Pulse Ox 100 100 Oxygen Delivery Method Nasal Cannula Oxygen Flow Rate (L/min) 4 07/04/24 17:15 07/04/24 17:30 07/04/24 17:45 Temperature Temperature Source Pulse Rate 69 70 Respiratory Rate 36 H 26 H Respiratory Effort Blood Pressure 136/85 H 123/83 H 108/68 Blood Pressure Mean 101 96 81 Pulse Ox 99 99 100 Oxygen Delivery Method Oxygen Flow Rate (L/min) 07/04/24 18:00 07/04/24 18:01 Temperature Temperature Source Pulse Rate 78 Respiratory Rate 13 Respiratory Effort Blood Pressure 120/107 H Blood Pressure Mean 114 Pulse Ox Oxygen Delivery Method Oxygen Flow Rate (L/min) Positive well nourished and well developed Constitutional Narrative: BMI is 38.9. General Appearance ED: well developed and NAD; Negative for cyanotic, diaphoretic or pallor HEENT Reports moist mucous membranes and dry mucous membranes Mouth ED: Yes dry mucous membranes Mouth: dry mucous membranes Neck no lymphadenopathy, supple and no JVD Chest Wall inspection of chest normal and palpation of chest normal Resp normal respiratory effort and clear to auscultation bilaterally Cardio regular rate, regular rhythm, S1 normal heart sound, S2 normal heart sound and no murmurs GI normal to inspection, nondistended, normoactive bowel sounds, non-tender, non-distended and no masses; Negative for hepatosplenomegaly Back/Spine no CVA tenderness Extremity General Extremety ED: Negative for tenderness Neuro oriented x3 and CN's II-XII intact bilaterally Sensorium / Orientation: alert Psych mental status grossly normal Skin no rashes or lesions noted, no wounds and skin turgor normal General Skin Exam: Negative for jaundice or pallor MDM MDM MDM Narrative Medical decision making narrative: With 1 hour of pain in light of coronary disease with multiple risk factors we will obtain troponin and 2-hour troponin. This may represent atypical presentation for pneumothorax, doubt pulmonary embolus. May represent infectious process. Will obtain appropriate blood work, chest x-ray, EKG and troponin. Lab Data Attestation: I reviewed the patient's lab results. Lab results narrative: White count is elevated with shift. She does have anemia with normal indices. BUN and creatinine reveal slight elevation of creatinine of 1.16 with an estimated GFR of 49. Glucose is 241 with a normal CO2 anion gap. First troponin is normal. Labs: Laboratory Results - last 24 hr 07/04/24 07/04/24 15:45 18:00 WBC 16.6 H RBC 3.83 L Hgb 11.1 L Hct 35.2 L MCV 91.9 MCH 29.0 MCHC 31.5 L RDW Std Deviation 43.3 RDW Coeff of [place] 13.2 Plt Count 363 MPV 10.0 Immature Gran % (Auto) 0.800 Neut % (Auto) 89.3 H Lymph % (Auto) 5.2 L [place] % (Auto) 3.9 Eos % (Auto) 0.3 Baso % (Auto) 0.5 Absolute Neuts (auto) 14.8 H Absolute Lymphs (auto) 0.86 Nucleated RBC % 0 Sodium 136 Potassium 4.7 Chloride 102 Carbon Dioxide 28.0 Anion Gap 6 BUN 14 Creatinine 1.16 H Estim Creat Clear Calc 47.49 Est GFR (MDRD) Af Amer 59 L Est GFR (MDRD) Non-Af 49 L BUN/Creatinine Ratio 12.1 Glucose 241 H Calcium 9.5 Troponin I High Sens 6 5 Radiography Chest X-Ray - ED: 2 View and Read by ED Physician (There is decrease in story volume. There is no obvious infiltrate noted. Cardiac silhouette is obscured on the left. This may represent pericardial fat. Question borderline cardiomegaly. There is no cephalization. There is no curly B-lines) Diagnostic Testing: Clinical Impression(s) from Imaging Studies Chest X-Ray 07/04/24 15:50 IMPRESSION: Possible Left perihilar scarring. Electronically Signed: Suman Cohen MD at 16:16 EST , EKG Initial EKG: Attestation: I personally reviewed and interpreted this EKG as follows: Interpretation: Sinus Rhythm (Rate is 67. There is low voltage. There is a broad due to body habitus. VA interval 250 ms. Cures duration 76 ms. QT duration 104 ms. Omro is normal. There is no ischemic changes noted.) Treatment and Re-Evaluation :: Patient was informed of results. With no EKG changes and 2 normal troponins and delta that is normal do not believe her dyspnea that was intermittent was caused by cardiac ischemia. The nausea and vomiting is probably related to her surgery. Plan is to discharge back to nursing facility Discharge Plan Triage Chief Complaint: Weakness ED Provider: Pasha Thornton Dx/Rx/DC Orders Clinical Impression: Acute dyspnea, Nausea & vomiting, Leukocytosis, Anemia, chronic disease, Elevated serum creatinine, Type 2 diabetes mellitus with hyperglycemia Instructions: ED Dyspnea Prescriptions: No Action (DME) Handicap Placard See Rx Instructions .ROUTE .MEDSUPPLY Qty: 1 0RF Rx Instructions: As directed, length of time 3 years citalopram 40 mg tablet 40 mg PO QHS Qty: 90 3RF (DME) cane Device See Rx Instructions .Route Qty: 1 0RF Rx Instructions: As directed pantoprazole 40 mg tablet,delayed release (DR/EC) 40 mg PO BID Qty: 180 2RF dextrose [Glucose Gel] 40 % gel 10 g PO Q15M PRN (Reason: hypoglycemia) Rx Instructions: until symptoms of low blood sugar are controlled aluminum-magnesium hydroxide 225-200 mg/5 mL suspension 30 ml PO Q4H PRN (Reason: UPSET STOMACH) budesonide 1 mg/2 mL suspension for nebulization 0.5 mg inhalation BID insulin glargine [Basaglar KwikPen U-100 Insulin] 100 unit/mL (3 mL) insulin pen 30 unit subcut QHS Rx Instructions: daily at bedtime losartan 50 mg tablet 50 mg PO QDAY fluticasone propionate [Allergy Relief (fluticasone)] 50 mcg/actuation spray,suspension 1 spray intranasal Q12H PRN (Reason: allergy symptoms) Rx Instructions: administer into each nostril lidocaine-silicone, adhesive 5 % combo pack 1 patch topical DAILY PRN (Reason: pain) Rx Instructions: leave on most painful area for up to 12 hrs montelukast [Singulair] 10 mg tablet 10 mg PO QHS dulaglutide 0.75 mg/0.5 mL pen injector 0.75 mg subcut QWEEK tizanidine [Zanaflex] 2 mg capsule 2 mg PO Q8H PRN (Reason: muscle spasticity) Linzess 145 mcg capsule 145 mcg PO QAM Qty: 60 3RF isosorbide mononitrate 60 mg tablet extended release 24 hr 60 mg PO DAILY Qty: 90 3RF nitroglycerin 0.4 mg tablet, sublingual 0.4 mg SUBLINGUAL Q5-15M PRN (Reason: Pain) Qty: 30 0RF atorvastatin 80 mg tablet 80 mg PO QHS clopidogrel 75 mg tablet 75 mg PO DAILY metoprolol tartrate 25 mg tablet 12.5 mg PO BID Rx Instructions: trazodone 50 mg tablet 25 mg PO QHS potassium chloride 20 mEq tablet extended release 20 meq PO BID insulin lispro [Humalog KwikPen Insulin] 100 unit/mL Insulin Pen See Protocol subcut ACHS Qty: 0 0RF Protocol: 5. Sliding Scale Insulin High Dosing Condition: 150-209 mg/dl = 3 units Condition: 210-259 mg/dl = 6 units Condition: 260-324 mg/dl = 9 units Condition: 325-374 mg/dl = 12 units Condition: 375-409 mg/dl = 14 units Condition: 410-449 mg/dl = 16 units Condition: Greater than 449 call physician Protocol Text: - Use for Total Daily Dose of Insulin 81-120 units - Very insulin resistant or septic patients HIGH DOSING ALGORITHM sucralfate [Carafate] 1 gram tablet 1 g PO TID acetaminophen 500 mg Tablet 1,000 mg PO Q8 PRN (Reason: pain) insulin lispro [Humalog KwikPen Insulin] 100 unit/mL Insulin Pen 15 unit subcut QHS Protocol: 4. Sliding Scale Insulin High-Med Dosing Condition: 150-199 mg/dl = 2 units Condition: 200-259 mg/dl = 4 units Condition: 260-324 mg/dl = 6 units Condition: 325-374 mg/dl = 8 units Condition: 375-409 mg/dl = 10 units Condition: 410-449 mg/dl = 11 units Condition: Greater than 449 call physician Protocol Text: - Use for Total Daily Dose of Insulin 56-80 units - Patient who are insulin resistant or septic HIGH MEDIUM DOSING ALGORITHM insulin lispro [Humalog KwikPen Insulin] 100 unit/mL Insulin Pen 5 unit subcut 1700 ondansetron 4 mg tablet,disintegrating 4 mg PO Q8H PRN PRN (Reason: Nausea) Qty: 10 0RF bisacodyl [Dulcolax (bisacodyl)] 5 mg tablet,delayed release (DR/EC) 5 mg PO QHS PRN (Reason: constipation) 30 Days Qty: 30 3RF (DME) pen needle, diabetic 32 gauge x /32 needle See Rx Instructions .ROUTE .MEDSUPPLY Qty: 50 0RF Rx Instructions: 4x/day (DME) blood-glucose meter [True Metrix Glucose Meter] Misc See Rx Instructions .Route Qty: 1 0RF Rx Instructions: As directed (DME) True Metrix Glucose Test Strip Strip See Rx Instructions .Route Qty: 100 7RF Rx Instructions: tid albuterol sulfate 90 mcg/actuation HFA aerosol inhaler 2 puff INHALATION Q6H PRN (Reason: shortness of breath or wheezing) Qty: 18 3RF ipratropium-albuterol 0.5 mg-3 mg(2.5 mg base)/3 mL solution for nebulization 3 ml INHALATION Q4H PRN PRN (Reason: SOB &/OR WHEEZING) Qty: 180 6RF (DME) FreeStyle Emily 2 Sensor Kit See Rx Instructions .ROUTE .MEDSUPPLY Qty: 2 3RF Rx Instructions: As directed (DME) FreeStyle Emily 2 Noble Misc See Rx Instructions .ROUTE .MEDSUPPLY Qty: 1 0RF Rx Instructions: As directed alprazolam 0.25 mg tablet 0.25 mg PO QHS PRN (Reason: anxiety) Qty: 30 1RF Primary Care Provider: Billy Madera Referrals: Billy Madera MD [Primary Care Provider] - Print Language: Azeri Disposition Disposition: Home, Self Care
[2024-07-04 17:51] LABS: Reflex Troponin-HS? (from REC) Y
[2024-07-04 18:32] LABS: Troponin-I HS 5 pg/mL (3.0-54.0)
== END 2024-07-04 20:55 | disposition home or self-care (01) ==
PROVIDERS: Emergency Provider Emergency Medicine; PCP Internal Medicine; Visit Provider Emergency Medicine
DX: R11.2 Nausea with vomiting, unspecified (principal); J96.11 Chronic respiratory failure with hypoxia; I50.30 Unspecified diastolic (congestive) heart failure; I11.0 Hypertensive heart disease with heart failure; J44.9 Chronic obstructive pulmonary disease, unspecified; E11.65 Type 2 diabetes mellitus with hyperglycemia; Z79.4 Long term (current) use of insulin; R79.89 Other specified abnormal findings of blood chemistry; I25.10 Atherosclerotic heart disease of native coronary artery without angina pectoris; E66.9 Obesity, unspecified; D72.829 Elevated white blood cell count, unspecified; D64.9 Anemia, unspecified; F32.A Depression, unspecified; E78.5 Hyperlipidemia, unspecified; G47.00 Insomnia, unspecified; G47.33 Obstructive sleep apnea (adult) (pediatric); Z88.0 Allergy status to penicillin; Z95.5 Presence of coronary angioplasty implant and graft; Z88.1 Allergy status to other antibiotic agents; Z68.38 Body mass index [BMI] 38.0-38.9, adult; Z87.19 Personal history of other diseases of the digestive system; Z90.49 Acquired absence of other specified parts of digestive tract; Z79.02 Long term (current) use of antithrombotics/antiplatelets; Z87.891 Personal history of nicotine dependence; Z79.899 Other long term (current) drug therapy; Z98.890 Other specified postprocedural states
CPT/HCPCS: 71046; 80048; 84484; 85025; 93005; 99285; A4216

== ENCOUNTER → 2024-07-13 | Outpatient (REF) | payer MEDICARE, MEDICAID, SELFPAY ==
[2021-11-03 12:08] VITALS: BMI 34.9
[2024-07-13 08:12] LABS: Hematocrit 31.5 % (37-47); Mean Corp Hgb Conc 31.7 g/dL (32-36); Mean Corpuscular Hgb 28.8 pg (27.0-32.0); Mean Corpuscular Volume 90.8 fL (81-99); Mean Platelet Vol. 10.6 fl (6.2-12.0); Platelet Count 326 K/mm3 (150-450); RBC Distribution Width CV 13.2 % (11.6-14.6); RBC Distribution Width SD 43.8 fl (35.1-43.9); Red Blood Count 3.47 M/mm3 (4.2-5.4); White Blood Count 11.3 K/mm3 (4.4-11.0)
[2024-07-13 08:32] LABS: ALB/GLOB Ratio 0.9 RATIO (0.9-2.4); AST(SGOT) 10 U/L (15-37); Alanine Aminotransfer ALT/SGPT 17 U/L (13-56); Albumin, Serum 2.9 g/dL (3.2-5.0); Alkaline Phosphatase 110 U/L (45-117); Anion Gap 4 (5-15); BUN 18 mg/dL (7-18); BUN/Creat Ratio 16.5 RATIO (10-20); Calcium,Total 9.2 mg/dL (8.5-10.1); Chloride 101 mmol/L (98-107); Creatinine, Serum 1.09 mg/dL (0.55-1.02); EST Glomerular Filtration Rate 52 mL/min (>60); Est Glom Filt Rate - Afr Amer 63 mL/min (>60); Globulin 3.1 g/dL (2.2-4.2); Glucose 166 mg/dL (74-106); Sodium Level 137 mmol/L (136-145)
[2024-07-13 08:37] LABS: Hemoglobin A1c 6.6 % (3.8-5.6)
== END ==
LOC: OLS.SWAL 05:00
PROVIDERS: PCP Internal Medicine; Visit Provider Internal Medicine
DX: D64.9 Anemia, unspecified (principal); E78.5 Hyperlipidemia, unspecified; J44.1 Chronic obstructive pulmonary disease with (acute) exacerbation; E11.69 Type 2 diabetes mellitus with other specified complication
CPT/HCPCS: 36415; 80053; 83036; 85027

== ENCOUNTER 2024-08-02 20:53 | Emergency (ER) | payer MEDICARE, MEDICAID, SELFPAY ==
[2021-11-03 12:08] VITALS: BMI 34.9
[2024-08-02 20:54] VITALS: PULSE 65; RESP 20; TEMP 36.8; O2SAT 96; BMI 39.4
--- NOTE | 2024-08-02 21:04 | EKG12_ITS ---
Test Reason : CP Blood Pressure : */* mmHG Vent. Rate : 69 BPM Atrial Rate : 69 BPM P-R Int : 150 ms QRS Dur : 74 ms QT Int : 398 ms P-R-T Axes : 48 18 62 degrees QTcB Int : 426 ms Normal sinus rhythm Normal ECG Confirmed by BANG MELVIN, RSOALIA ([id number]), newspaper copy editor JAVIER COLBY ([id number]) on 08/04/2024 9:38:15 AM Referred By: SONNY Confirmed By: ROSALIA CUENCA MD
--- NOTE | 2024-08-02 21:12 | RAD_ITS ---
EXAM: XR CHEST, 1 VIEW CLINICAL INDICATION: chest pain TECHNIQUE: Frontal view of the chest. COMPARISON: July 04, 2024 FINDINGS: LUNGS AND PLEURAL SPACES: Perihilar/infrahilar bronchial wall thickening/bronchitis. No pneumothorax. No effusion. HEART: Unremarkable. Cardiac silhouette not enlarged. MEDIASTINUM: Central airways and mediastinal contour are unremarkable. BONES/JOINTS: Degenerative changes of the spine and acromioclavicular joints. No acute fracture. SOFT TISSUES: Unremarkable. VASCULATURE: Atherosclerotic calcifications of the nonenlarged thoracic aortic arch. RAD/Chest 1 View (Portable) IMPRESSION: Bronchitis but no acute cardiopulmonary disease. Electronically Signed: Marko Norton MD at 21:53 EST ,
[2024-08-02 21:16] LABS: Absolute Lymphocyte Count 0.92 X10^3/uL (0.83-4.51); Absolute Neutrophil Count 8.5 X10^3/uL (2.0-7.7); Basophil# 0.03 X10^3/uL; Basophil% 0.3 % (0-1); Eosinophil# 0.03 X10^3/uL; Eosinophils% 0.3 % (0-5); Hematocrit 31.7 % (37-47); Lymphocyte # 0.92 X10^3/ul (0.83-4.51); Lymphocyte % 9.1 % (19-41); Mean Corp Hgb Conc 31.5 g/dL (32-36); Mean Corpuscular Hgb 28.4 pg (27.0-32.0); Mean Corpuscular Volume 90.1 fL (81-99); Mean Platelet Vol. 10.1 fl (6.2-12.0); Monocyte# 0.64 X10^3/uL; Monocyte% 6.3 % (0-10); NRBC Flagged by Analyzer 0 % (0-5); Neutrophil # 8.47 X10^3/uL (2.7-7.7); Neutrophil % 83.4 % (47-70); Platelet Count 287 K/mm3 (150-450); RBC Distribution Width CV 13.2 % (11.6-14.6); RBC Distribution Width SD 43.6 fl (35.1-43.9); Red Blood Count 3.52 M/mm3 (4.2-5.4); White Blood Count 10.2 K/mm3 (4.4-11.0)
[2024-08-02 21:50] LABS: Anion Gap 6 (5-15); BUN 15 mg/dL (7-18); BUN/Creat Ratio 15.7 RATIO (10-20); Calcium,Total 8.9 mg/dL (8.5-10.1); Chloride 94 mmol/L (98-107); Creatinine, Serum 0.96 mg/dL (0.55-1.02); EST Glomerular Filtration Rate 61 mL/min (>60); Est Glom Filt Rate - Afr Amer 74 mL/min (>60); Glucose 260 mg/dL (74-106); Potassium 4.4 mmol/L (3.5-5.1); Sodium Level 129 mmol/L (136-145); Troponin-I HS (w/2H Reflex) 5 pg/mL (3.0-54.0)
[2024-08-02] MEDS: Ipratropium/Albuterol Sulfate 3 ML AMPUL.NEB INHALATION (21:50)
[2024-08-02 21:52] VITALS: PULSE 71; RESP 20
[2024-08-02 21:53] VITALS: BP 124/66; PULSE 69; RESP 18; O2SAT 98
--- NOTE | 2024-08-02 21:56 | EDS_ITS ---
HPI HPI - URI History of Present Illness Chief Complaint: Chest Pain Informant: patient Onset/Context/Timing Onset: Days Context: Gradual Onset Timing: Continuous Maximum Severity: Mild Associated Symptoms Associated Symptoms: Positive for Nasal Congestion, Myalgias and Productive Cough (Yellowish sputum) Narrative Narrative: 74-year-old female past medical history of CAD with 2 stents on Plavix. History of pancreatitis, CHF, COPD and diabetes. She is on 4 L of oxygen at home. Has nebulizer inhaler at home. States that for the last several days she has had nasal congestion and a cough. At times she brings up yellow sputum. She has chest soreness. Denies vomiting has had some loose stools. Denies fever. Mild wheezing. Prior similar symptoms: Yes Recent Illness/Hospitalization: No ROS ROS ED ROS Narrative URI symptoms. Cough. Chest discomfort with coughing primarily. Not exertional. Constitutional Constitutional ED: Denies chills or fever(s) Eyes Eyes: Denies blurry vision ENT ENT ED: Reports rhinorrhea; Denies ear pain Cardiovascular Cardiovascular: Reports chest pain Respiratory/Chest Respiratory/Chest: Reports cough, sputum and other Details: Wheezing. Gastrointestinal Gastrointestinal: Denies abdominal pain Genitourinary Genitourinary ED: Denies dysuria or hematuria Musculoskeletal Musculoskeletal: Denies arthralgias Integumentary Denies abscess Neurologic Neurologic: Denies headache(s) Psychiatric Psychiatric: Denies anxiety Endocrine Endocrinology: Denies cold intolerance Hematologic/Lymphatic Hematologic/Lymphatic: Denies easy bleeding Allergic/Immunologic Allergic/Immunologic ED: Denies mouth swelling PFSH PFSH Medical History Anxiety Pancreatitis On home oxygen therapy Coronary artery disease Chronic constipation Insomnia Endotracheally intubated Bilateral pneumonia MARK treated with BiPAP Morbid obesity Diastolic CHF Chest pain Obesity Chronic back pain Anxiety and depression Anemia Thyroid nodule Hepatitis Former smoker Psoriasis Smoking greater than 40 pack years HLD (hyperlipidemia) Back pain Asthma with COPD Type 2 diabetes mellitus Hypertension Atherosclerotic heart disease of [place] coronary artery without angina pectoris Chronic respiratory failure COPD (chronic obstructive pulmonary disease) Home Medications ?Medication ?Instructions ?Recorded ?Last Taken ?Type Handicap Placard #1 ea 12/12/20 Unknown Rx bisacodyl 5 mg tablet,delayed 5 mg PO QHS PRN constipation 30 11/13/21 Unknown Rx release (Dulcolax (bisacodyl)) days #30 tabs pen needle, diabetic 32 gauge x #50 ea 02/11/22 Unknown Rx blood sugar diagnostic (True #100 ea 09/11/22 Unknown Rx Metrix Glucose Test Strip) blood-glucose meter (True Metrix #1 ea 09/11/22 Unknown Rx Glucose Meter) albuterol sulfate 90 mcg/actuation 2 puff inhalation Q6H PRN 11/06/22 Unknown Rx aerosol inhaler shortness of breath or wheezing #18 grams ipratropium 0.5 mg-albuterol 3 mg 3 ml inhalation Q4H PRN PRN SOB 11/10/22 Unknown Rx (2.5 mg base)/3 mL nebulization &/OR WHEEZING #180 mL soln cane #1 ea 11/16/22 Unknown Rx citalopram 40 mg tablet 40 mg PO QHS depression #90 tabs 11/16/22 Unknown Rx isosorbide mononitrate 60 mg 60 mg PO DAILY BP #90 tabs 12/26/22 Unknown Rx tablet,extended release 24 hr nitroglycerin 0.4 mg sublingual 0.4 mg sublingual Q5-15M PRN Pain 12/26/22 Unknown Rx tablet #30 tabs flash glucose sensor (FreeStyle #2 ea 01/06/23 Unknown Rx Emily 2 Sensor kit) atorvastatin 80 mg tablet 80 mg PO QHS cholesterol 01/26/23 Unknown History clopidogrel 75 mg tablet 75 mg PO DAILY blood thinner 01/26/23 Unknown History metoprolol tartrate 25 mg tablet 12.5 mg PO BID blood pressure 01/26/23 Unknown History flash glucose scanning reader #1 ea 03/23/23 Unknown Rx (FreeStyle Emily 2 [place]) pantoprazole 40 mg tablet,delayed 40 mg PO BID stomach #180 tabs 05/20/23 Unknown Rx release aluminum-magnesium hydroxide 225 30 ml PO Q4H PRN UPSET STOMACH 07/23/23 Unknown History mg-200 mg/5 mL oral suspension dextrose 40 % oral gel (Glucose 10 g PO Q15M PRN hypoglycemia 07/23/23 Unknown History Gel) budesonide 1 mg/2 mL suspension 0.5 mg inhalation BID breathing 08/13/23 Unknown History for nebulization potassium chloride 20 mEq 20 meq PO BID supplement 08/22/23 Unknown History tablet,extended release trazodone 50 mg tablet 25 mg PO QHS sleep 08/22/23 Unknown History insulin lispro 100 unit/mL See Protocol subcut ACHS #0 mL 08/26/23 Unknown Rx subcutaneous pen (Humalog KwikPen (U-100) Insulin) dulaglutide 0.75 mg/0.5 mL 0.75 mg subcut QWEEK 12/18/23 Unknown History subcutaneous pen injector fluticasone propionate 50 1 spray intranasal Q12H PRN 12/18/23 Unknown History mcg/actuation nasal allergy symptoms spray,suspension (Allergy Relief (fluticasone)) insulin glargine 100 unit/mL (3 30 unit subcut QHS diabetic 12/18/23 Unknown History mL) subcutaneous pen (Basaglar managment KwikPen U-100 Insulin) lidocaine 5 % topical 1 patch topical DAILY PRN pain 12/18/23 Unknown History patch-adhesive silicone combo pack montelukast 10 mg tablet 10 mg PO QHS 12/18/23 Unknown History (Singulair) tizanidine 2 mg capsule (Zanaflex) 2 mg PO Q8H PRN muscle spasticity 12/18/23 Unknown History ondansetron 4 mg disintegrating 4 mg PO Q8H PRN PRN Nausea #10 tabs 12/28/23 Unknown Rx tablet losartan 50 mg tablet 50 mg PO QDAY 04/25/24 Unknown History acetaminophen 500 mg tablet 1,000 mg PO Q8 PRN pain 06/04/24 Unknown History insulin lispro 100 unit/mL 5 unit subcut 1700 06/04/24 Unknown History subcutaneous pen (Humalog KwikPen (U-100) Insulin) insulin lispro 100 unit/mL 15 unit subcut QHS diabetes 06/04/24 Unknown History subcutaneous pen (Humalog KwikPen (U-100) Insulin) sucralfate 1 gram tablet (Carafate) 1 g PO TID acid reflux 06/04/24 Unknown History linaclotide 145 mcg capsule 145 mcg PO QAM #60 caps 06/20/24 Unknown Rx (Linzess) alprazolam 0.25 mg tablet 0.25 mg PO QHS PRN anxiety #30 tabs 07/26/24 Unknown Rx Allergy/AdvReac Type Severity Reaction Status Date / Time Iodinated Contrast Media Allergy Severe Anaphylaxis Verified 08/02/24 20:57 amoxicillin (Amoxicillin) Allergy Intermediate Rash Verified 08/02/24 20:57 hydrocodone Allergy Intermediate SWELLING Verified 08/02/24 20:57 gabapentin (From Neurontin) Allergy Shortness Verified 08/02/24 20:57 of breath levofloxacin (From Levaquin) Allergy Hives Verified 08/02/24 20:57 pseudoephedrine HCl (From Allergy Shortness Verified 08/02/24 20:57 Sudafed) of breath red dye Allergy Hives Verified 08/02/24 20:57 prednisone AdvReac Severe mean mood Verified 08/02/24 20:57 clonazepam (From Klonopin) AdvReac Depression Verified 08/02/24 20:57 codeine AdvReac HEADACHE Verified 08/02/24 20:57 Family History Brother Heart disease Mother Colon cancer Heart disease Surgical History History of coronary artery stent placement History of left heart catheterization (LHC) (~09/23/20) History of cholecystectomy Stented coronary artery (12/28/18) Social History Smoking Status: Former smoker pack-years: 40 how long ago did patient quit smokin year ago alcohol intake: never substance use type: does not use caffeine: Yes Type: carbonated beverages and tea what type of physical activity do you participate in: none EXAM Physical Exam Narrative Exam Narrative: [id number] female vital signs are stable on 4 L she is 96%. She does not look septic toxic. No distress. H EENT exam moist mucous membranes. Posterior pharynx unremarkable. Nasal congestion. Neck nontender. No lymphadenopathy. Lungs wet cough. Expiratory wheezing. No rales or rhonchi. Equal symmetrical. Heart regular rhythm rate about 70 no murmur. Chest wall she has reproducible chest wall discomfort on the left consistent with myofascial strain from coughing. No bruising or ecchymosis. No subcu air or crepitance. Patient moving all 4 extremities. Nontender no edema no cords. Neurologically she is awake and alert no focal motor deficits. Const Vital Signs: 08/02/24 20:54 08/02/24 20:57 08/02/24 21:26 Temperature 98.3 F Temperature Source Oral Pulse Rate 65 Respiratory Rate 20 H Respiratory Effort Normal Non-Labored Pulse Ox 96 Oxygen Delivery Method Nasal Cannula Nasal Cannula Oxygen Flow Rate (L/min) 4 4 Positive well nourished and well developed; Negative for cachectic or contr actures General Appearance ED: well developed and NAD; Negative for cachectic, contractures, cyanotic, diaphoretic or pallor Nutritional Appearance: Negative for cachectic HEENT Reports moist mucous membranes normocephalic and atraumatic Face and Sinus: Negative for sinus tenderness Throat: posterior oropharynx normal Eyes PERRL and EOMs intact bilaterally General Eye ED: Negative for pale conjunctiva or scleral icterus Neck no lymphadenopathy, supple and no meningeal signs General: Negative for anterior neck swelling or lymphadenopathy Resp normal respiratory effort and No clear to auscultation bilaterally Resp Narrative: Wet cough. Auscultation: wheezes Cardio S1 normal heart sound, S2 normal heart sound and no murmurs Rate: regular rate Rhythm: regular rhythm GI non-tender, non-distended and no masses Auscultation: normoactive bowel sounds Palpation: soft; Negative for tender, guarding or mass Back/Spine no CVA tenderness and normal ROM General Back: Negative for CVA tenderness Cervical Spine: Negative for cervical spine tenderness Thoracic Spine / Upper Back: Negative for thoracic spinal tenderness Lumbar Spine / Lower Back: Negative for lumbar spinal tenderness Sacrum: Negative for tenderness Extremity normal to inspection and full ROM General Extremety ED: Negative for cyanosis General Extremity: Negative for cyanosis Neuro oriented x3 and CN's II-XII intact bilaterally Sensorium / Orientation: alert, oriented to person, oriented to place and oriented to time Motor Exam: strength 5/5 throughout Psych mental status grossly normal Appearance: Negative for other Attitude: No agitated Mood & Affect: Negative for depressed, anxious or tearful Skin General Skin Exam: Negative for jaundice or pallor Lesions: no lesions Rashes: no rashes Trauma: Negative for abrasion or laceration MDM MDM MDM Narrative Medical decision making narrative: 74-year-old female extensive past medical history I think she has underlying viral URI with COPD flare. I do not think this is cardiac. Nurses put in a cardiac workup which will check. Rule out pneumonia. Due to her wheezing she was given DuoNeb aerosol and oral prednisone. History & Record Review Discussion w/independent historian: Patient Additional record(s) reviewed:: Prior inpatient record, Prior outpatient record, Prior ED visit, Prior labs and No prior records Lab Data Attestation: I reviewed the patient's lab results. Lab results narrative: CBC shows white count of 10. H&H 10.0 and 31. At her baseline chronic anemia. Platelets 287. Electrolytes show sodium 129. Gap 6. Normal BUN of 15 and creatinine 0.9. Glucose 260 she is diabetic. Troponins 5. Labs: Laboratory Results - last 24 hr 08/02/24 21:03 WBC 10.2 RBC 3.52 L Hgb 10.0 L Hct 31.7 L MCV 90.1 MCH 28.4 MCHC 31.5 L RDW Std Deviation 43.6 RDW Coeff of [place] 13.2 Plt Count 287 MPV 10.1 Immature Gran % (Auto) 0.600 Neut % (Auto) 83.4 H Lymph % (Auto) 9.1 L [place] % (Auto) 6.3 Eos % (Auto) 0.3 Baso % (Auto) 0.3 Absolute Neuts (auto) 8.5 H Absolute Lymphs (auto) 0.92 Nucleated RBC % 0 Sodium 129 L Potassium 4.4 Chloride 94 L Carbon Dioxide 29.0 Anion Gap 6 BUN 15 Creatinine 0.96 Estim Creat Clear Calc 57.00 Est GFR (MDRD) Af Amer 74 Est GFR (MDRD) Non-Af 61 BUN/Creatinine Ratio 15.7 Glucose 260 H Calcium 8.9 Troponin I High Sens 5 Radiography Chest X-Ray - ED: 1 View, Read by ED Physician, Read by Radiologist, Normal, Heart, Lungs, Mediastinum, Bony Structures, No Acute Disease and Chronic Changes Diagnostic Testing: Clinical Impression(s) from Imaging Studies Chest X-Ray 08/02/24 21:12 IMPRESSION: Bronchitis but no acute cardiopulmonary disease. Electronically Signed: Marko Norton MD at 21:53 EST , Chest x-ray, portable, single view interpreted by myself and radiologist shows no acute abnormality. Normal cardiac silhouette. Chronic lung changes. No pneumonia. No effusion. Rhythm Strip Rhythm Strip: Sinus Rhythm Rate: 69 Ectopy: None EKG Initial EKG: Attestation: I personally reviewed and interpreted this EKG as follows: Interpretation: Sinus Rhythm and No Acute Injury Pattern Comments: Normal sinus rhythm rate of 69 no acute signs of VT or ischemia. No dysrhythmia. Discharge Plan Triage Chief Complaint: Chest Pain ED Provider: Jacky Holland Dx/Rx/DC Orders Prescriptions: No Action (DME) Handicap Marta See Rx Instructions .ROUTE .MEDSUPPLY Qty: 1 0RF Rx Instructions: As directed, length of time 3 years citalopram 40 mg tablet 40 mg PO QHS Qty: 90 3RF (DME) cane Device See Rx Instructions .Route Qty: 1 0RF Rx Instructions: As directed pantoprazole 40 mg tablet,delayed release (DR/EC) 40 mg PO BID Qty: 180 2RF dextrose [Glucose Gel] 40 % gel 10 g PO Q15M PRN (Reason: hypoglycemia) Rx Instructions: until symptoms of low blood sugar are controlled aluminum-magnesium hydroxide 225-200 mg/5 mL suspension 30 ml PO Q4H PRN (Reason: UPSET STOMACH) budesonide 1 mg/2 mL suspension for nebulization 0.5 mg inhalation BID insulin glargine [Basaglar KwikPen U-100 Insulin] 100 unit/mL (3 mL) insulin pen 30 unit subcut QHS Rx Instructions: daily at bedtime losartan 50 mg tablet 50 mg PO QDAY fluticasone propionate [Allergy Relief (fluticasone)] 50 mcg/actuation spray,suspension 1 spray intranasal Q12H PRN (Reason: allergy symptoms) Rx Instructions: administer into each nostril lidocaine-silicone, adhesive 5 % combo pack 1 patch topical DAILY PRN (Reason: pain) Rx Instructions: leave on most painful area for up to 12 hrs montelukast [Singulair] 10 mg tablet 10 mg PO QHS dulaglutide 0.75 mg/0.5 mL pen injector 0.75 mg subcut QWEEK tizanidine [Zanaflex] 2 mg capsule 2 mg PO Q8H PRN (Reason: muscle spasticity) Linzess 145 mcg capsule 145 mcg PO QAM Qty: 60 3RF isosorbide mononitrate 60 mg tablet extended release 24 hr 60 mg PO DAILY Qty: 90 3RF nitroglycerin 0.4 mg tablet, sublingual 0.4 mg SUBLINGUAL Q5-15M PRN (Reason: Pain) Qty: 30 0RF atorvastatin 80 mg tablet 80 mg PO QHS clopidogrel 75 mg tablet 75 mg PO DAILY metoprolol tartrate 25 mg tablet 12.5 mg PO BID Rx Instructions: trazodone 50 mg tablet 25 mg PO QHS potassium chloride 20 mEq tablet extended release 20 meq PO BID insulin lispro [Humalog KwikPen Insulin] 100 unit/mL Insulin Pen See Protocol subcut ACHS Qty: 0 0RF Protocol: 5. Sliding Scale Insulin High Dosing Condition: 150-209 mg/dl = 3 units Condition: 210-259 mg/dl = 6 units Condition: 260-324 mg/dl = 9 units Condition: 325-374 mg/dl = 12 units Condition: 375-409 mg/dl = 14 units Condition: 410-449 mg/dl = 16 units Condition: Greater than 449 call physician Protocol Text: - Use for Total Daily Dose of Insulin 81-120 units - Very insulin resistant or septic patients HIGH DOSING ALGORITHM sucralfate [Carafate] 1 gram tablet 1 g PO TID acetaminophen 500 mg Tablet 1,000 mg PO Q8 PRN (Reason: pain) insulin lispro [Humalog KwikPen Insulin] 100 unit/mL Insulin Pen 15 unit subcut QHS Protocol: 4. Sliding Scale Insulin High-Med Dosing Condition: 150-199 mg/dl = 2 units Condition: 200-259 mg/dl = 4 units Condition: 260-324 mg/dl = 6 units Condition: 325-374 mg/dl = 8 units Condition: 375-409 mg/dl = 10 units Condition: 410-449 mg/dl = 11 units Condition: Greater than 449 call physician Protocol Text: - Use for Total Daily Dose of Insulin 56-80 units - Patient who are insulin resistant or septic HIGH MEDIUM DOSING ALGORITHM insulin lispro [Humalog KwikPen Insulin] 100 unit/mL Insulin Pen 5 unit subcut 1700 ondansetron 4 mg tablet,disintegrating 4 mg PO Q8H PRN PRN (Reason: Nausea) Qty: 10 0RF bisacodyl [Dulcolax (bisacodyl)] 5 mg tablet,delayed release (DR/EC) 5 mg PO QHS PRN (Reason: constipation) 30 Days Qty: 30 3RF (DME) pen needle, diabetic 32 gauge x 5/32 needle See Rx Instructions .ROUTE .MEDSUPPLY Qty: 50 0RF Rx Instructions: 4x/day (DME) blood-glucose meter [True Metrix Glucose Meter] Misc See Rx Instructions .Route Qty: 1 0RF Rx Instructions: As directed (DME) True Metrix Glucose Test Strip Strip See Rx Instructions .Route Qty: 100 7RF Rx Instructions: tid albuterol sulfate 90 mcg/actuation HFA aerosol inhaler 2 puff INHALATION Q6H PRN (Reason: shortness of breath or wheezing) Qty: 18 3RF ipratropium-albuterol 0.5 mg-3 mg(2.5 mg base)/3 mL solution for nebulization 3 ml INHALATION Q4H PRN PRN (Reason: SOB &/OR WHEEZING) Qty: 180 6RF (DME) FreeStyle Emily 2 Sensor Kit See Rx Instructions .ROUTE .MEDSUPPLY Qty: 2 3RF Rx Instructions: As directed (DME) FreeStyle Emily 2 [place] Misc See Rx Instructions .ROUTE .MEDSUPPLY Qty: 1 0RF Rx Instructions: As directed alprazolam 0.25 mg tablet 0.25 mg PO QHS PRN (Reason: anxiety) Qty: 30 0RF Primary Care Provider: Billy Madera Referrals: Billy Madera MD [Primary Care Provider] - Print Language: Mongolian
[2024-08-02] MEDS: predniSONE 20 MG Tablet 60 MG PO (21:58)
[2024-08-02 22:00] VITALS: BP 136/87; PULSE 70; RESP 20; O2SAT 98
[2024-08-02 23:00] VITALS: BP 129/61; PULSE 70; RESP 21; TEMP 36.6; O2SAT 97
--- NOTE | 2024-08-02 23:03 | ED.RN ---
Attempted to call nurse to nurse, spoke to nurse at [facility] who said no nurse was on duty to take report at assisted living. She gave number for nurses station in case [employer]NAGER would answer and also number for senior linux administrator. No answer for either number.
[2024-08-02 23:06] LABS: Reflex Troponin-HS? (from REC) Y
== END 2024-08-03 01:20 | disposition home or self-care (01) ==
PROVIDERS: Emergency Provider Emergency Medicine; PCP Internal Medicine; Visit Provider Emergency Medicine
DX: J40 Bronchitis, not specified as acute or chronic (principal); J96.10 Chronic respiratory failure, unspecified whether with hypoxia or hypercapnia; I11.0 Hypertensive heart disease with heart failure; I50.32 Chronic diastolic (congestive) heart failure; J44.9 Chronic obstructive pulmonary disease, unspecified; E11.9 Type 2 diabetes mellitus without complications; Z79.4 Long term (current) use of insulin; I25.10 Atherosclerotic heart disease of native coronary artery without angina pectoris; F41.9 Anxiety disorder, unspecified; F32.A Depression, unspecified; E78.5 Hyperlipidemia, unspecified; G47.33 Obstructive sleep apnea (adult) (pediatric); Z95.5 Presence of coronary angioplasty implant and graft; Z87.19 Personal history of other diseases of the digestive system; Z99.81 Dependence on supplemental oxygen; Z79.02 Long term (current) use of antithrombotics/antiplatelets; Z87.891 Personal history of nicotine dependence; Z79.899 Other long term (current) drug therapy; Z90.49 Acquired absence of other specified parts of digestive tract
CPT/HCPCS: 71045; 80048; 84484; 85025; 93005; 94640; 99285; A4216

== ENCOUNTER → 2024-09-14 | Outpatient (CLI) | payer MEDICARE, MEDICAID, SELFPAY ==
[2021-11-03 12:08] VITALS: BMI 34.9
[2024-09-14 14:10] VITALS: PULSE 65; PULSE 67; PULSE 70; PULSE 71; PULSE 73; O2SAT 93; O2SAT 94; O2SAT 95; O2SAT 97; O2SAT 98
--- NOTE | 2024-09-14 14:31 | CPS ---
Pt arrived to walk on 4 lpm. Pt placed on room air. Walk was started on room air. Pt stated she felt dizzy and S.O.B 30 seconds into walk. Pt sat down in wheelchair. Saturation was 95% on room air. Walk resumed. Pt would walk for approximately 30 seconds and state she was dizzy, S.O.B. and chest tighntness throughout test. Pt would sit for a few moments, get up walk for 30 seconds,C/O S.O.B and dizziness and need to sit. Pt's saturation was above 93% for the entire 6 minutes on room air. Pt did state her oxygen level is always high and does not drop. Pt was placed back on her 4 lpm post walk.
--- NOTE | 2024-09-18 12:22 | PCM.PSN.6M ---
PSN 6 Minute Walk Test 6 Minute Walk Test 6 Minute Walk Test: 6 Minute Walk Test PSN:6-Minute Walk Test Start: 09/14/24 14:26 Freq: Status: Active Protocol: [id number] Document 09/14/24 14:10 [facility] (Rec: 09/14/24 14:43 [facility] [id number]) 6 Minute Walk Test Date Performed 09/14/24 Time Performed 14:10 Height 5 ft 2 in Weight: 209 lb Weight in Pounds 209.[address]: Nelsy Assistive device None used: Pre-test Oxygen Delivery Room Air Method Pulse Ox (%) 93 Pulse Rate (60-100 73 beats/min) Dyspnea Luke Scale ( 4 0-10) Exertion Luke Scale 6 (6-20) Reported Symptoms Increased Work of Breathing,Dizziness 1st minute Oxygen Delivery Room Air Method Pulse Ox (%) 95 Pulse Rate (60-100 70 beats/min) Dyspnea Luke Scale ( 4 0-10) Reported Symptoms Increased Work of Breathing,Dizziness 2nd minute Oxygen Delivery Room Air Method Pulse Ox (%) 98 Pulse Rate (60-100 71 beats/min) Dyspnea Luke Scale ( 4 0-10) Reported Symptoms Increased Work of Breathing,Dizziness 3rd minute Oxygen Delivery Room Air Method Pulse Ox (%) 95 Pulse Rate (60-100 70 beats/min) Dyspnea Luke Scale ( 4 0-10) Number of Rests 1 Taken Reported Symptoms Increased Work of Breathing,Dizziness 4th minute Oxygen Delivery Room Air Method Pulse Ox (%) 94 Pulse Rate (60-100 65 beats/min) Dyspnea Luke Scale ( 4 0-10) Number of Rests 1 Taken Reported Symptoms Increased Work of Breathing,Dizziness 5th minute Oxygen Delivery Room Air Method Number of Rests 1 Taken Reported Symptoms Increased Work of Breathing,Dizziness 6th minute Oxygen Delivery Room Air Method Pulse Ox (%) 98 Pulse Rate (60-100 67 beats/min) Dyspnea Luke Scale ( 4 0-10) Exertion Luke Scale 15 (6-20) Number of Rests 1 Taken Reported Symptoms Increased Work of Breathing,Dizziness Post-test Oxygen Delivery Room Air Method Pulse Ox (%) 97 Pulse Rate (60-100 67 beats/min) Reported Symptoms Increased Work of Breathing Full Laps Walked 1 Partial Lap, Number 25 of Tiles Walked Total Distance 84 Walked (ft) 09/14/24 14:31 Cardiopulmonary Services by Ignacia Valdovinos Pt arrived to walk on 4 lpm. Pt placed on room air. Walk was started on room air. Pt stated she felt dizzy and S.O.B 30 seconds into walk. Pt sat down in wheelchair. Saturation was 95% on room air. Walk resumed. Pt would walk for approximately 30 seconds and state she was dizzy, S.O.B. and chest tighntness throughout test. Pt would sit for a few moments, get up walk for 30 seconds,C/O S.O.B and dizziness and need to sit. Pt's saturation was above 93% for the entire 6 minutes on room air. Pt did state her oxygen level is always high and does not drop. Pt was placed back on her 4 lpm post walk. Initialized on 09/14/24 14:31 - END OF NOTE Interpretation Interpretation: The patient ambulated 84 feet over the course of 6 minutes beginning on room air without assistive devices. Pretesting oxygen saturation was noted to be 93% on room air. With ambulation, the susan oxygen saturation was 94%. It should be noted that the patient took several breaks during testing due to dizziness and shortness of breath. This testing is nearly nondiagnostic with significantly impaired walk distance. Recommendations Recommendations: Essentially nondiagnostic walk test due to inadequate walk distance. However, there was no significant exertional oxygen desaturation noted.
== END | disposition home or self-care (01) ==
PROVIDERS: PCP Internal Medicine; Referring Provider Nurse Practitioner Acute Care; Visit Provider Nurse Practitioner Acute Care
DX: J96.11 Chronic respiratory failure with hypoxia (principal)
CPT/HCPCS: 94618

== ENCOUNTER → 2024-10-12 | Outpatient (REF) | payer MEDICARE, MEDICAID, SELFPAY ==
[2021-11-03 12:08] VITALS: BMI 34.9
[2024-10-12 08:44] LABS: Hematocrit 34.7 % (37-47); Mean Corp Hgb Conc 31.7 g/dL (32-36); Mean Corpuscular Hgb 28.6 pg (27.0-32.0); Mean Corpuscular Volume 90.1 fL (81-99); Mean Platelet Vol. 10.5 fl (6.2-12.0); Platelet Count 354 K/mm3 (150-450); RBC Distribution Width CV 12.8 % (11.6-14.6); RBC Distribution Width SD 42.1 fl (35.1-43.9); Red Blood Count 3.85 M/mm3 (4.2-5.4); White Blood Count 9.9 K/mm3 (4.4-11.0)
[2024-10-12 09:08] LABS: ALB/GLOB Ratio 1.4 RATIO (0.9-2.4); AST(SGOT) 17 U/L (<=31); Alanine Aminotransfer ALT/SGPT 14 U/L (<=34); Albumin, Serum 3.9 g/dL (3.4-4.8); Alkaline Phosphatase 118 U/L (35-104); Anion Gap 11 (5-15); BUN 13 mg/dL (4-19); BUN/Creat Ratio 15.2 RATIO (10-20); Calcium,Total 9.7 mg/dL (7.6-11.0); Carbon Dioxide 27.1 mmol/L (21.0-32.0); Chloride 98 mmol/L (98-108); Creatinine, Serum 0.84 mg/dL (0.70-1.20); EST Glomerular Filtration Rate 74 (>60); Globulin 2.7 g/dL (2.2-4.2); Glucose 75 mg/dL (70-99); Potassium 4.4 mmol/L (3.3-5.1); Protein, Total 6.6 g/dL (5.9-8.4); Sodium Level 137 mmol/L (133-145); Total Bilirubin 0.24 mg/dL (0.00-1.30)
[2024-10-12 09:11] LABS: Hemoglobin A1c 7.3 % (<=5.6)
== END ==
LOC: OLS.SWAL 06:58
PROVIDERS: PCP Internal Medicine; Referring Provider Internal Medicine; Visit Provider Internal Medicine
DX: I48.91 Unspecified atrial fibrillation (principal); E11.9 Type 2 diabetes mellitus without complications; E78.5 Hyperlipidemia, unspecified
CPT/HCPCS: 36415; 80053; 83036; 85027

== ENCOUNTER → 2024-10-19 | Outpatient (CLI) | payer MEDICARE, MEDICAID, SELFPAY ==
[2021-11-03 12:08] VITALS: BMI 34.9
== END | disposition home or self-care (01) ==
LOC: LABSPEC 13:30
PROVIDERS: PCP Internal Medicine; Referring Provider Physician Assistant; Visit Provider Physician Assistant
DX: R68.89 Other general symptoms and signs (principal)
CPT/HCPCS: 87631

== ENCOUNTER 2024-12-23 23:13 | Emergency (ER) | payer MEDICARE, MEDICAID, SELFPAY ==
[2021-11-03 12:08] VITALS: BMI 34.9
[2024-12-23 23:16] VITALS: BP 126/93; PULSE 67; RESP 20; TEMP 36.6; O2SAT 96
--- NOTE | 2024-12-23 23:35 | EKG12_ITS ---
Test Reason : DYSRHYTHMIA Blood Pressure : */* mmHG Vent. Rate : 62 BPM Atrial Rate : 62 BPM P-R Int : 174 ms QRS Dur : 78 ms QT Int : 424 ms P-R-T Axes : 45 8 57 degrees QTcB Int : 430 ms Normal sinus rhythm Normal ECG Confirmed by BANG MELVIN, ROSALIA ([id number]), sports editor LEILA AGUILERA ([id number]) on 12/25/2024 9:21:05 AM Referred By: Confirmed By: ROSALIA CUENCA MD
--- NOTE | 2024-12-23 23:42 | RAD_ITS ---
PROCEDURE: CHEST PA AND LATERAL 12/23/2024 REASON FOR EXAM: SOB, COPD TECHNIQUE: Frontal and lateral views of the chest. COMPARISON: 08/02/2024 FINDINGS: Hardware: None Heart: Heart size is mildly enlarged. Mediastinum: The mediastinal contour is unremarkable. Lungs: Bibasilar atelectasis. No focal consolidation. No pneumothorax. No pleural effusion. Mild emphysema. Bones: Degenerative changes are identified within the thoracic spine. RAD/Chest PA and Lateral IMPRESSION: NO ACUTE FINDINGS. Reading Location: [facility]
--- NOTE | 2024-12-23 23:55 | EDS_ITS ---
HPI History of Present Illness Chief Complaint: Edema Informant: patient and EMS Narrative Narrative: 74-year-old female states the left side of her neck and her entire left arm was sore and swollen this morning when she got up, but throughout the day the arm improved and her anterior arm by her biceps is still sore and swollen. She states nurses at the [place] [facility] evaluated her and thought maybe she could have a blood clot and the doctor wanted her sent to the ER for this tonight at 11 PM on Wednesday night. Patient states she is feeling a little short of breath more so than usual the last couple days, when she gets her usual COPD breathing treatments it is a lot better, she had 1 before she got here and so her breathing is good right now. No more coughing than usual. She has had a bit of a sore throat that hurts when she swallows but not severe. Her neck is not stiff. She denies any fevers, chills, confusion, focal neurologic symptoms, recent IV in the left upper arm or injury to it, or recent immobilization. She denies any pain or swelling in her legs. She is on clopidogrel no anticoagulation and no history of DVT or PE that she knows of. [facility] Medical History Muscle ache of extremity Sinusitis Anxiety Pancreatitis On home oxygen therapy Coronary artery disease Chronic constipation Insomnia Endotracheally intubated Bilateral pneumonia MARK treated with BiPAP Morbid obesity Diastolic CHF Chest pain Obesity Chronic back pain Anxiety and depression Anemia Thyroid nodule Hepatitis Former smoker Psoriasis Smoking greater than 40 pack years HLD (hyperlipidemia) Back pain Asthma with COPD Type 2 diabetes mellitus Hypertension Atherosclerotic heart disease of [place] coronary artery without angina pectoris Chronic respiratory failure COPD (chronic obstructive pulmonary disease) Home Medications ?Medication ?Instructions ?Recorded ?Last Taken ?Type Handicap Placard #1 ea 12/12/20 Unknown Rx bisacodyl 5 mg tablet,delayed 5 mg PO QHS PRN constipa tion 30 11/13/21 Unknown Rx release (Dulcolax (bisacodyl)) days #30 tabs pen needle, diabetic 32 gauge x #50 ea 02/11/22 Unknow n Rx blood sugar diagnostic (True #100 ea 09/11/22 Unknown Rx Metrix Glucose Test Strip) blood-glucose meter (True Metrix #1 ea 09/11/22 Unknow n Rx Glucose Meter) albuterol sulfate 90 mcg/actuation 2 puff inhalation Q 6H PRN 11/06/22 Unknown Rx aerosol inhaler shortness of breath or wheez ing #18 grams ipratropium 0.5 mg-albuterol 3 mg 3 ml inhalation Q4H PRN PRN SOB 11/10/22 Unknown Rx (2.5 mg base)/3 mL nebulization &/OR WHEEZING #180 mL soln cane #1 ea 11/16/22 Unknown Rx citalopram 40 mg tablet 40 mg PO QHS depression #90 tabs 11/16/22 Unknown Rx isosorbide mononitrate 60 mg 60 mg PO DAILY BP #90 tab s 12/26/22 Unknown Rx tablet,extended release 24 hr nitroglycerin 0.4 mg sublingual 0.4 mg sublingual Q5-1 5M PRN Pain 12/26/22 Unknown Rx tablet #30 tabs flash glucose sensor (FreeStyle #2 ea 01/06/23 Unknown Rx Emily 2 Sensor kit) atorvastatin 80 mg tablet 80 mg PO QHS cholesterol Unknown History clopidogrel 75 mg tablet 75 mg PO DAILY blood thinner 01/26/23 Unknown History metoprolol tartrate 25 mg tablet 12.5 mg PO BID blood pressure 01/26/23 Unknown History flash glucose scanning reader #1 ea 03/23/23 Unknown R x (FreeStyle Emily 2 Bailey) pantoprazole 40 mg tablet,delayed 40 mg PO BID stomach #180 tabs 05/20/23 Unknown Rx release dextrose 40 % oral gel (Glucose 10 g PO Q15M PRN hypog lycemia 07/23/23 Unknown History Gel) budesonide 1 mg/2 mL suspension 0.5 mg inhalation BID breathing 08/13/23 Unknown History for nebulization potassium chloride 20 mEq 20 meq PO BID supplement Unknown History tablet,extended release insulin lispro 100 unit/mL See Protocol subcut ACHS #0 mL 08/26/23 Unknown Rx subcutaneous pen (Humalog KwikPen (U-100) Insulin) dulaglutide 0.75 mg/0.5 mL 0.75 mg subcut QWEEK Unknown History subcutaneous pen injector fluticasone propionate 50 1 spray intranasal Q12H PRN 12/18/23 Unknown History mcg/actuation nasal allergy symptoms spray,suspension (Allergy Relief (fluticasone)) insulin glargine 100 unit/mL (3 30 unit subcut QHS becky betic 12/18/23 Unknown History mL) subcutaneous pen (Basaglar managment KwikPen U-100 Insulin) tizanidine 2 mg capsule (Zanaflex) 2 mg PO Q8H PRN mus jeffery spasticity 12/18/23 Unknown History ondansetron 4 mg disintegrating 4 mg PO Q8H PRN PRN Na usea #10 tabs 12/28/23 Unknown Rx tablet losartan 50 mg tablet 50 mg PO QDAY 04/25/24 Unkno wn History acetaminophen 500 mg tablet 1,000 mg PO Q8 PRN pain Unknown History insulin lispro 100 unit/mL 5 unit subcut 1700 06/04/24 Unknown History subcutaneous pen (Humalog KwikPen (U-100) Insulin) insulin lispro 100 unit/mL 15 unit subcut QHS diabetes 06/04/24 Unknown History subcutaneous pen (Humalog KwikPen (U-100) Insulin) montelukast 10 mg tablet 10 mg PO QHS #7 tabs 4 Unknown Rx (Singulair) furosemide 40 mg tablet (Lasix) 40 mg PO QAM 08/24/24 Unknown History prednisone 2.5 mg tablet 2.5 mg PO QDAY 08/24/24 Unkn own History lidocaine 5 % topical 1 patch topical DAILY PRN pa in #60 09/01/24 Unknown Rx patch-adhesive silicone combo pack ea alprazolam 0.25 mg tablet 0.25 mg PO QHS PRN anxiety # 30 tabs 10/27/24 Unknown Rx linaclotide 290 mcg capsule 290 mcg PO QAM #90 caps Unknown Rx polyethylene glycol 3350 17 17 g PO QDAY #850 grams Unknown Rx gram/dose oral powder (Miralax) Allergy/AdvReac Type Severity Reaction Status Date / Time Iodinated Contrast Media Allergy Severe Anaphylaxis Verified 12/23/24 23:16 amoxicillin (Amoxicillin) Allergy Intermediate Rash Verified 12/23/24 23:16 hydrocodone Allergy Intermediate SWELLING Verified 12/23/24 23:16 gabapentin (From Neurontin) Allergy Shortness Verified 12/23/24 23:16 of breath levofloxacin (From Levaquin) Allergy Hives Verified 12/23/24 23:16 pseudoephedrine HCl (From Allergy Shortness Verified 12/23/24 23:16 Sudafed) of breath red dye Allergy Hives Verified 12/23/24 23:16 prednisone AdvReac Severe mean mood Verified 12/23/24 23:16 clonazepam (From Klonopin) AdvReac Depression Verified 12/23/24 23:16 codeine AdvReac HEADACHE Verified 12/23/24 23:16 Family History Brother Heart disease Mother Colon cancer Heart disease Surgical History History of coronary artery stent placement History of left heart catheterization (LHC) (~09/23/20) History of cholecystectomy Stented coronary artery (12/28/18) Social History Smoking Status: Former smoker pack-years: 40 how long ago did patient quit smokin year ago alcohol intake: never substance use type: does not use caffeine: Yes Type: carbonated beverages and tea what type of physical activity do you participate in: none ROS ROS ED Constitutional Constitutional ED: Denies chills or fever(s) Eyes Eyes: Denies change in vision or diplopia ENT ENT ED: Reports sore throat; Denies rhinorrhea Cardiovascular Cardiovascular: Denies chest pain, leg edema, lightheadedness, palpitations or syncope Respiratory/Chest Respiratory/Chest: Reports dyspnea, wheezing and other Details: Chronic orthopnea no worse than usual ; Denies cough Gastrointestinal Gastrointestinal: Denies abdominal pain, diarrhea, nausea or vomiting Genitourinary Genitourinary ED: Denies dysuria or hematuria Musculoskeletal Musculoskeletal: Reports neck pain and other Details: Left neck and upper e xtremity edema see HPI ; Denies back pain Integumentary Denies abscess or rash Neurologic Neurologic: Denies headache(s), paresthesias or weakness Psychiatric Psychiatric: Denies suicidal thoughts EXAM Physical Exam Const Vital Signs: 12/23/24 23:16 12/23/24 23:21 Temperature 97.9 F Temperature Source Oral Pulse Rate 67 Respiratory Rate 20 H Respiratory Effort Normal Non-Labored Respiratory Pattern Tachypnea Blood Pressure 126/93 H Blood Pressure Mean 104 Pulse Ox 96 Oxygen Delivery Method Room Air Positive well nourished, well developed and obese General Appearance ED: well developed and NAD Nutritional Appearance: obese HEENT Reports moist mucous membranes HEENT Narrative: Posterior oropharynx with mild erythema no exudates or asymmetry or trismus normocephalic and atraumatic Eyes PERRL and EOMs intact bilaterally Neck full ROM and supple Neck Narrative: Patient has cushingoid prominence of her neck on both sides, at the base of the scalenes, the left is more prominent, soft, there is no superficial tenderness or skin abnormality/abscess, but with deeper palpation she has tenderness and possibly some palpable inflamed cervical lymph nodes as well as some left submandibular tender lymphadenopathy. No other lymphadenopathy. Resp normal respiratory effort and clear to auscultation bilaterally Resp Narrative: Diminished throughout clear. Conversive in full sentences. Cardio regular rate, regular rhythm and no murmurs GI non-tender and non-distended Auscultation: normoactive bowel sounds Palpation: soft Back/Spine no CVA tenderness General Back: other FROM Extremity normal to inspection Extremity Narrative: There is a mild nonspecific macular blanching rash just present on the left upper arm laterally present no tenderness. No bullae or petechiae. There is some tenderness in the anterior aspect of the left upper arm, there is no gross deformity. There may be some very mild edema in his local area but nothing throughout the left upper extremity otherwise. 2+/4 radial pulses bilaterally. No tenderness to the shoulder or the volar elbow. There does not appear to be a bulge in the biceps to suggest acute biceps muscle pathology. There is no fluctuance or abscess. No induration General Extremety ED: Yes tenderness; Negative for edema or pulses abnormal General Extremity: Negative for edema or pulses abnormal Neuro oriented x3, CN's II-XII intact bilaterally and no sensory deficits noted Sensorium / Orientation: awake and alert Motor Exam: strength 5/5 throughout Psych mental status grossly normal Skin no wounds Skin Narrative: Minor macular rash left upper arm only see above MDM MDM MDM Narrative Medical decision making narrative: Given the patient's dyspnea, it does sound like her COPD, but I obtained a chest x-ray to evaluate for pneumonia and EKG to evaluate for acute coronary syndrome. EKG is normal in my interpretation and a two-view chest x-ray on my interpretation shows chronic abnormalities in the lungs and cardiomegaly but no acute CHF or pneumonia. Radiology in agreement. I think her neck edema may be due to lymphadenopathy this may or may not be related to her sore throat and so we sent a strep test which was negative. Therefore more consistent with viral syndrome. The edema in her arm is of unknown significance. She presents when vascular ultrasound is not an available test. I offered a D-dimer given her low risk for an upper extremity DVT and unlikelihood of that being the case here, but she states she does not want to wait for a blood test. She was okay coming back either tomorrow morning or Wednesday morning for an upper extremity ultrasound which I am scheduling her for as an outpatient. She is comfortable with this plan going back to the [place] [facility]. Lab Data Attestation: I reviewed the patient's lab results. (neg strept test) Radiography Diagnostic Testing: Clinical Impression(s) from Imaging Studies Chest X-Ray 12/23/24 23:42 IMPRESSION: NO ACUTE FINDINGS. Reading [facility] Rhythm Strip Rhythm Strip: Sinus Rhythm Rate: 65 Ectopy: None EKG Initial EKG: Attestation: I personally reviewed and interpreted this EKG as follows: Interpretation: Sinus Rhythm and No Acute Injury Pattern Comments: Nml axis & intervals; nml EKG Discharge Plan Triage Chief Complaint: Edema ED Provider: Deon Rodriguez Dx/Rx/DC Orders Clinical Impression: Left upper extremity swelling, Acute viral pharyngitis, Acute exacerbation of COPD with asthma, Anterior cervical adenopathy Instructions: Lymphadenopathy, ED Peripheral Edema, Unilateral Prescriptions: No Action (DME) Handicap Placard See Rx Instructions .ROUTE .MEDSUPPLY Qty: 1 0RF Rx Instructions: As directed, length of time 3 years citalopram 40 mg tablet 40 mg PO QHS Qty: 90 3RF (DME) cane Device See Rx Instructions .Route Qty: 1 0RF Rx Instructions: As directed pantoprazole 40 mg tablet,delayed release (DR/EC) 40 mg PO BID Qty: 180 2RF dextrose [Glucose Gel] 40 % gel 10 g PO Q15M PRN (Reason: hypoglycemia) Rx Instructions: until symptoms of low blood sugar are controlled budesonide 1 mg/2 mL suspension for nebulization 0.5 mg inhalation BID insulin glargine [Basaglar KwikPen U-100 Insulin] 100 unit/mL (3 mL) insulin pen 30 unit subcut QHS Rx Instructions: daily at bedtime losartan 50 mg tablet 50 mg PO QDAY fluticasone propionate [Allergy Relief (fluticasone)] 50 mcg/actuation spray,suspension 1 spray intranasal Q12H PRN (Reason: allergy symptoms) Rx Instructions: administer into each nostril dulaglutide 0.75 mg/0.5 mL pen injector 0.75 mg subcut QWEEK tizanidine [Zanaflex] 2 mg capsule 2 mg PO Q8H PRN (Reason: muscle spasticity) furosemide [Lasix] 40 mg tablet 40 mg PO QAM prednisone 2.5 mg tablet 2.5 mg PO QDAY lidocaine-silicone, adhesive 5 % combo pack 1 patch topical DAILY PRN (Reason: pain) Qty: 60 1RF Rx Instructions: leave on most painful area for up to 12 hrs linaclotide 290 mcg capsule 290 mcg PO QAM Qty: 90 3RF isosorbide mononitrate 60 mg tablet extended release 24 hr 60 mg PO DAILY Qty: 90 3RF nitroglycerin 0.4 mg tablet, sublingual 0.4 mg SUBLINGUAL Q5-15M PRN (Reason: Pain) Qty: 30 0RF atorvastatin 80 mg tablet 80 mg PO QHS clopidogrel 75 mg tablet 75 mg PO DAILY metoprolol tartrate 25 mg tablet 12.5 mg PO BID Rx Instructions: potassium chloride 20 mEq tablet extended release 20 meq PO BID insulin lispro [Humalog KwikPen Insulin] 100 unit/mL Insulin Pen See Protocol subcut ACHS Qty: 0 0RF Protocol: 5. Sliding Scale Insulin High Dosing Condition: 150-209 mg/dl = 3 units Condition: 210-259 mg/dl = 6 units Condition: 260-324 mg/dl = 9 units Condition: 325-374 mg/dl = 12 units Condition: 375-409 mg/dl = 14 units Condition: 410-449 mg/dl = 16 units Condition: Greater than 449 call physician Protocol Text: - Use for Total Daily Dose of Insulin 81-120 units - Very insulin resistant or septic patients HIGH DOSING ALGORITHM acetaminophen 500 mg Tablet 1,000 mg PO Q8 PRN (Reason: pain) insulin lispro [Humalog KwikPen Insulin] 100 unit/mL Insulin Pen 15 unit subcut QHS Protocol: 4. Sliding Scale Insulin High-Med Dosing Condition: 150-199 mg/dl = 2 units Condition: 200-259 mg/dl = 4 units Condition: 260-324 mg/dl = 6 units Condition: 325-374 mg/dl = 8 units Condition: 375-409 mg/dl = 10 units Condition: 410-449 mg/dl = 11 units Condition: Greater than 449 call physician Protocol Text: - Use for Total Daily Dose of Insulin 56-80 units - Patient who are insulin resistant or septic HIGH MEDIUM DOSING ALGORITHM insulin lispro [Humalog KwikPen Insulin] 100 unit/mL Insulin Pen 5 unit subcut 1700 ondansetron 4 mg tablet,disintegrating 4 mg PO Q8H PRN PRN (Reason: Nausea) Qty: 10 0RF montelukast [Singulair] 10 mg tablet 10 mg PO QHS Qty: 7 0RF bisacodyl [Dulcolax (bisacodyl)] 5 mg tablet,delayed release (DR/EC) 5 mg PO QHS PRN (Reason: constipation) 30 Days Qty: 30 3RF (DME) pen needle, diabetic 32 gauge x 5/32 needle See Rx Instructions .ROUTE .MEDSUPPLY Qty: 50 0RF Rx Instructions: 4x/day (DME) blood-glucose meter [True Metrix Glucose Meter] Misc See Rx Instructions .Route Qty: 1 0RF Rx Instructions: As directed (DME) True Metrix Glucose Test Strip Strip See Rx Instructions .Route Qty: 100 7RF Rx Instructions: tid albuterol sulfate 90 mcg/actuation HFA aerosol inhaler 2 puff INHALATION Q6H PRN (Reason: shortness of breath or wheezing) Qty: 18 3RF ipratropium-albuterol 0.5 mg-3 mg(2.5 mg base)/3 mL solution for nebulization 3 ml INHALATION Q4H PRN PRN (Reason: SOB &/OR WHEEZING) Qty: 180 6RF (DME) FreeStyle Emily 2 Sensor Kit See Rx Instructions .ROUTE .MEDSUPPLY Qty: 2 3RF Rx Instructions: As directed (DME) FreeStyle Emily 2 Bailey Misc See Rx Instructions .ROUTE .MEDSUPPLY Qty: 1 0RF Rx Instructions: As directed alprazolam 0.25 mg tablet 0.25 mg PO QHS PRN (Reason: anxiety) Qty: 30 3RF polyethylene glycol 3350 [Miralax] 17 gram/dose powder 17 g PO QDAY Qty: 850 3RF Other Ambulatory Orders: Venous Duplex US, Unilateral (Stat) Facility: [facility] - Location: [facility] Ordered By: Dr. Deon Rodriguez Primary Care Provider: Billy Madera Referrals: Billy Madera MD [Primary Care Provider] - Print Language: Kinyarwanda Disposition Disposition: Home, Self Care
[2024-12-24 01:07] VITALS: BP 155/65; PULSE 66; RESP 16; TEMP 36.7; O2SAT 100
--- NOTE | 2024-12-24 04:50 | NURSING ---
MS called notified pt on way. [facility] here to transport pt.
== END 2024-12-24 04:51 | disposition home or self-care (01) ==
PROVIDERS: Emergency Provider Emergency Medicine; PCP Internal Medicine; Visit Provider Emergency Medicine
DX: M79.89 Other specified soft tissue disorders (principal); I50.30 Unspecified diastolic (congestive) heart failure; I11.0 Hypertensive heart disease with heart failure; J44.1 Chronic obstructive pulmonary disease with (acute) exacerbation; E11.9 Type 2 diabetes mellitus without complications; Z79.4 Long term (current) use of insulin; J02.8 Acute pharyngitis due to other specified organisms; R59.0 Localized enlarged lymph nodes; J45.901 Unspecified asthma with (acute) exacerbation; F41.9 Anxiety disorder, unspecified; F32.A Depression, unspecified; L40.9 Psoriasis, unspecified; E78.5 Hyperlipidemia, unspecified; E66.9 Obesity, unspecified; I25.10 Atherosclerotic heart disease of native coronary artery without angina pectoris; G47.33 Obstructive sleep apnea (adult) (pediatric); Z95.5 Presence of coronary angioplasty implant and graft; Z79.02 Long term (current) use of antithrombotics/antiplatelets; Z79.85 Long-term (current) use of injectable non-insulin antidiabetic drugs; Z79.899 Other long term (current) drug therapy; Z87.891 Personal history of nicotine dependence
CPT/HCPCS: 71046; 87651; 93005; 99285

== ENCOUNTER → 2025-01-05 | Outpatient (CLI) | payer MEDICARE, MEDICAID, SELFPAY ==
[2021-11-03 12:08] VITALS: BMI 34.9
[2025-01-05 17:14] LABS: ALB/GLOB Ratio 1.6 RATIO (0.9-2.4); AST(SGOT) 16 U/L (<=31); Alanine Aminotransfer ALT/SGPT 14 U/L (<=34); Alkaline Phosphatase 155 U/L (35-104); Anion Gap 10 (5-15); BUN 16 mg/dL (4-19); BUN/Creat Ratio 18.6 RATIO (10-20); Calcium,Total 9.5 mg/dL (7.6-11.0); Carbon Dioxide 23.9 mmol/L (21.0-32.0); Chloride 97 mmol/L (98-108); Creatinine, Serum 0.87 mg/dL (0.70-1.20); EST Glomerular Filtration Rate 70 (>60); Globulin 2.5 g/dL (2.2-4.2); Glucose 138 mg/dL (70-99); Potassium 4.3 mmol/L (3.3-5.1); Protein, Total 6.5 g/dL (5.9-8.4); Sodium Level 131 mmol/L (133-145); Total Bilirubin 0.22 mg/dL (0.00-1.30)
[2025-01-05 17:24] LABS: Absolute Lymphocyte Count 1.56 X10^3/uL (0.83-4.51); Absolute Neutrophil Count 8.8 X10^3/uL (2.0-7.7); Basophil# 0.08 X10^3/uL; Basophil% 0.7 % (0-1); Eosinophils% 1.8 % (0-5); Hematocrit 32.4 % (37-47); Hemoglobin 10.4 g/dL (12.0-15.0); Lymphocyte # 1.56 X10^3/ul (0.83-4.51); Lymphocyte % 13.7 % (19-41); Mean Corp Hgb Conc 32.1 g/dL (32-36); Mean Corpuscular Hgb 28.7 pg (27.0-32.0); Mean Corpuscular Volume 89.5 fL (81-99); Mean Platelet Vol. 11.2 fl (6.2-12.0); Monocyte# 0.71 X10^3/uL; Monocyte% 6.2 % (0-10); NRBC Flagged by Analyzer 0 % (0-5); Neutrophil # 8.79 X10^3/uL (2.7-7.7); Neutrophil % 77.1 % (47-70); Platelet Count 354 K/mm3 (150-450); RBC Distribution Width CV 12.9 % (11.6-14.6); Red Blood Count 3.62 M/mm3 (4.2-5.4); White Blood Count 11.4 K/mm3 (4.4-11.0)
[2025-01-05 18:24] LABS: CRP 4.76 mg/L (0.0-3.0); LDH 141 U/L (84-246)
[2025-01-05 18:32] LABS: Erythrocyte Sedimentation Rate 33 mm/hr (0-30)
== END | disposition home or self-care (01) ==
LOC: BIMLAB 14:44
PROVIDERS: PCP Internal Medicine; Referring Provider Physician Assistant; Visit Provider Physician Assistant
DX: R22.1 Localized swelling, mass and lump, neck (principal)
CPT/HCPCS: 36415; 80053; 83615; 85025; 85652; 86140; 86480

== ENCOUNTER → 2025-01-11 05:00 | Outpatient (REF) | payer MEDICARE, MEDICAID, SELFPAY ==
[2021-11-03 12:08] VITALS: BMI 34.9
[2025-01-11 09:23] LABS: Hematocrit 34.1 % (37-47); Hemoglobin 10.8 g/dL (12.0-15.0); Mean Corp Hgb Conc 31.7 g/dL (32-36); Mean Corpuscular Hgb 28.2 pg (27.0-32.0); Mean Platelet Vol. 10.7 fl (6.2-12.0); Platelet Count 307 K/mm3 (150-450); RBC Distribution Width SD 42.1 fl (35.1-43.9); Red Blood Count 3.83 M/mm3 (4.2-5.4); White Blood Count 8.9 K/mm3 (4.4-11.0)
[2025-01-11 09:40] LABS: Hemoglobin A1c 6.6 % (<=5.6)
[2025-01-11 09:44] LABS: ALB/GLOB Ratio 1.4 RATIO (0.9-2.4); AST(SGOT) 16 U/L (<=31); Alanine Aminotransfer ALT/SGPT 12 U/L (<=34); Albumin, Serum 3.8 g/dL (3.4-4.8); Alkaline Phosphatase 149 U/L (35-104); Anion Gap 11 (5-15); BUN 16 mg/dL (4-19); BUN/Creat Ratio 18.7 RATIO (10-20); Calcium,Total 9.5 mg/dL (7.6-11.0); Carbon Dioxide 26.8 mmol/L (21.0-32.0); Chloride 100 mmol/L (98-108); Creatinine, Serum 0.85 mg/dL (0.70-1.20); EST Glomerular Filtration Rate 72 (>60); Globulin 2.8 g/dL (2.2-4.2); Glucose 87 mg/dL (70-99); Potassium 4.3 mmol/L (3.3-5.1); Protein, Total 6.6 g/dL (5.9-8.4); Sodium Level 138 mmol/L (133-145); Total Bilirubin 0.33 mg/dL (0.00-1.30)
== END ==
LOC: OLS.SWAL 05:00
PROVIDERS: PCP Internal Medicine; Visit Provider Internal Medicine
DX: J44.1 Chronic obstructive pulmonary disease with (acute) exacerbation (principal); E11.69 Type 2 diabetes mellitus with other specified complication; D64.9 Anemia, unspecified; E78.5 Hyperlipidemia, unspecified
CPT/HCPCS: 36415; 80053; 83036; 85027

== ENCOUNTER → 2025-01-22 | Outpatient (CLI) | payer MEDICARE, MEDICAID, SELFPAY ==
[2021-11-03 12:08] VITALS: BMI 34.9
--- NOTE | 2025-01-22 15:49 | CT_ITS ---
PROCEDURE: LOW DOSE CT LUNG SCREENING 01/22/2025 REASON FOR EXAM: SMOKING QUIT 2019 TECHNIQUE: LOW DOSE CT LUNG SCREENING Coronal and Sagittal reconstruction series were provided. One or more dose reduction techniques were used (e.g., Automated exposure control, adjustment of the mA and/or kV according to patient size, use of iterative reconstruction technique). REFERENCE LINK: [employer] Lung-RADS RADIATION DOSE SUMMARY: CTDlvol: 4.02 mGy DLP: 135 mGycm COMPARISON: 12/20/2023. FINDINGS: PULMONARY NODULES: (Only nodules >3mm are reported) Nodules described below are on series 2 unless otherwise specified. Unchanged calcified pulmonary granulomas in the right upper lobe. Unchanged calcified mediastinal, hepatic and splenic granulomas. Unchanged cardiomegaly. Moderate coronary artery calcifications. Diffuse spondylosis. Bilateral basilar atelectatic pulmonary changes. Normal unenhanced main pulmonary artery and right and left pulmonary arteries. Normal bilateral peripheral pulmonary arteries. Normal thoracic aorta and visualized great vessels. There is no demonstrated aortic aneurysm. Normal heart and pericardium. Normal mediastinum. Normal hilar regions. Normal visualized trachea and bronchi. Normal pleura. Normal remaining visualized upper abdomen. CT/Low Dose CT Lung Screening IMPRESSION: Unchanged calcified pulmonary granulomas in the right upper lobe. Unchanged calcified mediastinal, hepatic and splenic granulomas. Unchanged cardiomegaly. Moderate coronary artery calcifications. Diffuse spondylosis. Bilateral basilar atelectatic pulmonary changes. Coronary artery calcification (CAC) is is present Lung-RADS Category: 1 NEGATIVE. RECOMMEND 12-MONTH SCREENING LDCT. Other Significant Findings: None. Reading Location: [facility]
== END | disposition home or self-care (01) ==
LOC: CT 15:47
PROVIDERS: PCP Internal Medicine; Referring Provider Nurse Practitioner Acute Care; Visit Provider Nurse Practitioner Acute Care
DX: F17.210 Nicotine dependence, cigarettes, uncomplicated (principal)
CPT/HCPCS: 71271

== ENCOUNTER → 2025-02-12 | Outpatient (CLI) | payer MEDICARE, MEDICAID, SELFPAY ==
[2021-11-03 12:08] VITALS: BMI 34.9
[2025-02-12 15:37] LABS: Hematocrit 37.0 % (37-47); Hemoglobin 11.4 g/dL (12.0-15.0); Immature Granulocytes Count 0.050 X10^3/uL (0.0-0.0); Mean Corp Hgb Conc 30.8 g/dL (32-36); Mean Corpuscular Volume 91.6 fL (81-99); Mean Platelet Vol. 11.1 fl (6.2-12.0); NRBC Flagged by Analyzer 0 % (0-5); Platelet Count 362 K/mm3 (150-450); RBC Distribution Width CV 12.8 % (11.6-14.6); RBC Distribution Width SD 43.1 fl (35.1-43.9); Red Blood Count 4.04 M/mm3 (4.2-5.4); White Blood Count 11.2 K/mm3 (4.4-11.0)
[2025-02-12 16:15] LABS: AST(SGOT) 17 U/L (<=31); Alanine Aminotransfer ALT/SGPT 15 U/L (<=34); Albumin, Serum 4.3 g/dL (3.4-4.8); Alkaline Phosphatase 185 U/L (35-104); Anion Gap 12 (5-15); BUN 12 mg/dL (4-19); BUN/Creat Ratio 13.3 RATIO (10-20); Calcium,Total 9.9 mg/dL (7.6-11.0); Carbon Dioxide 25.0 mmol/L (21.0-32.0); Chloride 99 mmol/L (98-108); Globulin 3.1 g/dL (2.2-4.2); Glucose 80 mg/dL (70-99); Potassium 4.6 mmol/L (3.3-5.1)
[2025-02-12 16:45] LABS: Free T3 2.6 pg/mL (2.18-3.98); T4 Total, Thyroxin 6.1 ug/dL (4.8-13.9)
[2025-02-12 16:46] LABS: CRP < 3.00 mg/L (0.0-3.0)
== END | disposition home or self-care (01) ==
LOC: BIMLAB 13:45
PROVIDERS: PCP Internal Medicine; Referring Provider Nurse Practitioner Family; Visit Provider Nurse Practitioner Family
DX: M25.562 Pain in left knee (principal); R22.1 Localized swelling, mass and lump, neck; R79.89 Other specified abnormal findings of blood chemistry
CPT/HCPCS: 36415; 80053; 84436; 84443; 84481; 85025; 86140

== ENCOUNTER → 2025-02-15 | Outpatient (CLI) | payer MEDICARE, MEDICAID, SELFPAY ==
[2021-11-03 12:08] VITALS: BMI 34.9
--- NOTE | 2025-02-15 13:27 | MRI_ITS ---
PROCEDURE: ORBIT FACE AND NECK (ROUTINE) 02/15/2025 REASON FOR EXAM: LEFT NECK SUPRACLAVICULAR SWELLING TECHNIQUE: ORBIT FACE AND NECK (ROUTINE) Multiplaner and multisequence images were obtained. COMPARISON: none FINDINGS: Abundant non encapsulated subcutaneous fat deposition along the left side of the neck and left supraclavicular region with no obvious soft tissue masses formation. Normal appearance of the larynx, namely the supraglottic, glottic, and infra, glottic spaces. The base of the tongue, the uvula, the epiglottis, the vocal cords, the upper trachea, and the upper esophagus are unremarkable. Normal appearance of the rest of the supra-and infra-hyoid deep neck spaces. Unremarkable nasal and oropharyngeal mucosal spaces. Normal appearance of the parotid glands, sublingual and submandibular. Right thyroid lobe nodules displaying low T1 and high T2 signal. Subcentimetric bilateral upper deep cervical lymph nodes, possibly reactive. Normal signal void appearance of the carotid sheath vessels. MRI/Orbit Face and Neck (Routine) IMPRESSION: Abundant non encapsulated subcutaneous fat deposition along the left side of th e neck and left supraclavicular region with no obvious soft tissue masses formation. Right thyroid lobe nodules. Advise sonography correlation. Reading Location: [id number]
== END | disposition home or self-care (01) ==
LOC: MRI 13:09
PROVIDERS: PCP Internal Medicine; Referring Provider Physician Assistant; Visit Provider Physician Assistant
DX: R59.0 Localized enlarged lymph nodes (principal)
CPT/HCPCS: 70540

== ENCOUNTER → 2025-02-19 | Outpatient (CLI) | payer MEDICARE, MEDICAID, SELFPAY ==
[2021-11-03 12:08] VITALS: BMI 34.9
--- NOTE | 2025-02-19 12:37 | US_ITS ---
PROCEDURE: THYROID 02/19/2025 REASON FOR EXAM: NODULES Multiple thyroid nodules. TECHNIQUE: THYROID COMPARISON: Prior study dated November 23, 2023. FINDINGS: Right thyroid lobe size: 6.1 cm 2 cm 2.7 cm. Left thyroid lobe size: 5.1 cm 1.4 cm 1.9 cm Isthmus: 4 mm. Background parenchymal echotexture is heterogeneous echotexture in both lobes. Nodules: There is a 7 mm x 8 mm x 8 mm complex cyst in the upper pole of the right lobe. A similar-appearing nodule measuring 1 cm x 1.1 cm x 0.9 cm is seen in the midportion. There is evidence of a dominant 1.5 cm 1.9 cm 1.5 cm complex nodule in the lower pole. This is a TI-RADS 4. This is essentially unchanged as compared to prior study. Once again, there is a 5 mm x 4 mm x 3 mm cyst in the midportion of the left lobe as well as 2 subcentimeter hypoechoic nodules in the left lobe. The largest measures 7 mm x 5 mm x 5 mm. There has been essentially no change. US/Thyroid IMPRESSION: Enlarged thyroid more prominent on the right side with bilateral nodules as prateek cribed. There has been essentially no change. RECOMMENDATION: Based on most suspicious nodule. Nodule size = largest diameter Only evaluate nodule if =>5 mm. Growth > 20% in 2 dimensions = worsening. Follow up to 4 nodules. Recommend biopsy for no more than 2 nodules. Reading Location: [place] [id number]
[2025-02-19 13:15] VITALS: BP 112/39; PULSE 69; RESP 20; O2SAT 97
--- NOTE | 2025-02-19 13:15 | NURSING ---
PATIENT ATTEMPTED TO STAND UP PER HIDE INSPECTOR AND SORTER WHEN PATIENT BECAME DIZZY. THIS RN TO ASSESS PATIENT. PATIENT SITTING UP IN BED. PATIENT STATES THAT SHE GETS DIZZY OFTEN ESPECIALLY AFTER CHANGING POSITIONS. VITAL SIGNS OBTAINED AND AT PATIENTS BASELINE. PATIENT GIVEN SNACK AND BEVERAGE. PATIENT STATED HER DIZZINESS IS IMPROVING. WILL CONTINUE TO MONITOR.
[2025-02-19 13:20] VITALS: BP 126/57; PULSE 70; RESP 20; O2SAT 98
== END | disposition home or self-care (01) ==
LOC: US 12:36
PROVIDERS: PCP Internal Medicine; Referring Provider Physician Assistant; Visit Provider Physician Assistant
DX: E04.1 Nontoxic single thyroid nodule (principal)
CPT/HCPCS: 76536

== ENCOUNTER → 2025-03-30 | Outpatient (CLI) | payer MEDICARE, MEDICAID, SELFPAY ==
[2025-03-27 13:48] VITALS: BMI 34.9
== END | disposition home or self-care (01) ==
LOC: LABSPEC 15:54
PROVIDERS: PCP Internal Medicine; Referring Provider Obstetrics & Gynecology; Visit Provider Obstetrics & Gynecology
DX: N76.4 Abscess of vulva (principal)
CPT/HCPCS: 87070; 87077; 87149; 87186; 87205

== ENCOUNTER → 2025-04-12 | Outpatient (REF) | payer MEDICARE, MEDICAID, SELFPAY ==
[2025-03-27 13:48] VITALS: BMI 34.9
[2025-04-12 08:03] LABS: Hematocrit 31.3 % (37-47); Hemoglobin 9.8 g/dL (12.0-15.0); Mean Corp Hgb Conc 31.3 g/dL (32-36); Mean Corpuscular Volume 89.7 fL (81-99); Mean Platelet Vol. 11.6 fl (6.2-12.0); Platelet Count 269 K/mm3 (150-450); RBC Distribution Width CV 12.6 % (11.6-14.6); RBC Distribution Width SD 41.4 fl (35.1-43.9); Red Blood Count 3.49 M/mm3 (4.2-5.4); White Blood Count 9.1 K/mm3 (4.4-11.0)
[2025-04-12 08:20] LABS: AST(SGOT) 15 U/L (<=31); Alanine Aminotransfer ALT/SGPT 10 U/L (<=34); Albumin, Serum 3.8 g/dL (3.4-4.8); Alkaline Phosphatase 164 U/L (35-104); Anion Gap 9 (5-15); BUN 14 mg/dL (4-19); BUN/Creat Ratio 15.5 RATIO (10-20); Calcium,Total 9.5 mg/dL (7.6-11.0); Carbon Dioxide 28.9 mmol/L (21.0-32.0); Chloride 103 mmol/L (98-108); Globulin 2.4 g/dL (2.2-4.2); Glucose 84 mg/dL (70-99); Potassium 5.1 mmol/L (3.3-5.1)
== END ==
LOC: OLS.SWAL 05:00
PROVIDERS: PCP Internal Medicine; Visit Provider Internal Medicine
DX: D64.9 Anemia, unspecified (principal); E78.5 Hyperlipidemia, unspecified; E11.69 Type 2 diabetes mellitus with other specified complication; J44.1 Chronic obstructive pulmonary disease with (acute) exacerbation
CPT/HCPCS: 36415; 80053; 83036; 85027

== ENCOUNTER → 2025-04-12 | Outpatient (CLI) | payer MEDICARE, MEDICAID, SELFPAY ==
[2025-03-27 13:48] VITALS: BMI 34.9
== END | disposition home or self-care (01) ==
PROVIDERS: PCP Internal Medicine; Referring Provider Nurse Practitioner Family; Visit Provider Nurse Practitioner Family
DX: N89.8 Other specified noninflammatory disorders of vagina (principal)
CPT/HCPCS: 87070; 87205

== ENCOUNTER → 2025-04-27 | Outpatient (CLI) | payer MEDICARE, MEDICAID, SELFPAY ==
[2025-03-27 13:48] VITALS: BMI 34.9
--- NOTE | 2025-04-27 12:22 | RAD_ITS ---
PROCEDURE: CHEST PA AND LATERAL 04/27/2025 REASON FOR EXAM: SHORTNESS OF BREATH AND COUGH TECHNIQUE: Procedure Code: RADCXR Modality: DX Procedure: CHEST PA AND LATERAL COMPARISON: Prior study dated December 23, 2024. FINDINGS: Hardware: None Heart: Heart size is mildly enlarged. Calcification of the aortic arch. Mediastinum: The mediastinal contour is unremarkable. Lungs: Stable mild increased linear markings at the lung bases worse at the left lung base suggestive of basilar scarring. Bones: Degenerative changes are identified within the thoracic spine. Mild levoconvex scoliosis. RAD/Chest PA and Lateral IMPRESSION: Stable mild increased linear markings at the lung bases suggestive of basilar s carring. Reading Location: [place] [id number]
[2025-04-27 12:43] LABS: Hematocrit 33.6 % (37-47); Hemoglobin 10.8 g/dL (12.0-15.0); Immature Granulocytes Count 0.050 X10^3/uL (0.0-0.0); Mean Corp Hgb Conc 32.1 g/dL (32-36); Mean Corpuscular Volume 89.6 fL (81-99); Mean Platelet Vol. 11.2 fl (6.2-12.0); NRBC Flagged by Analyzer 0 % (0-5); Platelet Count 321 K/mm3 (150-450); RBC Distribution Width CV 12.6 % (11.6-14.6); RBC Distribution Width SD 41.0 fl (35.1-43.9); Red Blood Count 3.75 M/mm3 (4.2-5.4); White Blood Count 11.6 K/mm3 (4.4-11.0)
[2025-04-27 12:53] LABS: Anion Gap 11 (5-15); BUN 14 mg/dL (4-19); BUN/Creat Ratio 15.6 RATIO (10-20); Calcium,Total 9.7 mg/dL (7.6-11.0); Carbon Dioxide 26.8 mmol/L (21.0-32.0); Chloride 100 mmol/L (98-108); Glucose 153 mg/dL (70-99); Potassium 4.6 mmol/L (3.3-5.1); Pro- Brain NATRIURETIC PEPTIDE 442 pg/mL (<=900)
== END | disposition home or self-care (01) ==
PROVIDERS: PCP Internal Medicine; Referring Provider Nurse Practitioner Acute Care; Visit Provider Nurse Practitioner Acute Care
DX: J18.9 Pneumonia, unspecified organism (principal); R06.02 Shortness of breath
CPT/HCPCS: 36415; 71046; 80048; 83880; 85025

== ENCOUNTER → 2025-05-23 | Outpatient (CLI) | payer MEDICARE, MEDICAID, SELFPAY ==
[2025-03-27 13:48] VITALS: BMI 34.9
== END | disposition home or self-care (01) ==
LOC: LABSPEC 15:51
PROVIDERS: PCP Internal Medicine; Visit Provider Nurse Practitioner Family
DX: N89.8 Other specified noninflammatory disorders of vagina (principal)
CPT/HCPCS: 87070; 87205

== ENCOUNTER → 2025-06-08 06:20 | Outpatient (REF) | payer MEDICARE, MEDICAID, SELFPAY ==
[2025-03-27 13:48] VITALS: BMI 34.9
[2025-06-08 07:42] LABS: Uric Acid 5.5 mg/dL (2.6-6.0)
== END ==
LOC: OLS.SWAL 06:20
PROVIDERS: PCP Internal Medicine; Visit Provider Internal Medicine
DX: M19.90 Unspecified osteoarthritis, unspecified site (principal)
CPT/HCPCS: 36415; 84550; 86038; 86200; 86431

== ENCOUNTER → 2025-06-20 | Outpatient (CLI) | payer MEDICARE, SELFPAY ==
[2025-03-27 13:48] VITALS: BMI 34.9
--- NOTE | 2025-06-20 12:55 | RAD_ITS ---
PROCEDURE: CERV SPINE 2 OR 3 VIEWS 06/20/2025 REASON FOR EXAM: SPONDYLOSIS CERVICAL, CERVICAL FACET ARTHRITIS TECHNIQUE: Procedure Code: RADSPCL Modality: DX Procedure: CERV SPINE 2 OR 3 VIEWS COMPARISON: None FINDINGS: There is degenerative disc space narrowing at C5-C6 and grade 1 retrolisthesis of C5 on C6. No acute fracture. Prevertebral soft tissues are within normal limits. Lung apices are clear. RAD/Cerv Spine 2 or 3 Views IMPRESSION: Degenerative disc disease and alignment abnormalities without acute bony abnorm ality. Reading Location[facility]
== END | disposition home or self-care (01) ==
LOC: RAD 12:52
PROVIDERS: PCP Internal Medicine; Referring Provider Anesthesiology Pain Medicine; Visit Provider Anesthesiology Pain Medicine
DX: M47.812 Spondylosis without myelopathy or radiculopathy, cervical region (principal)
CPT/HCPCS: 72040

== ENCOUNTER → 2025-07-12 | Outpatient (REF) | payer MEDICARE, MEDICAID, SELFPAY ==
[2025-03-27 13:48] VITALS: BMI 34.9
--- OUTSIDE RECORDS SUMMARY | 2025-07-12 04:59 | XMS RPT_ITS | CCD ---
Author Organization [facility] Care Team Providers Care Pump Room Operator Name Role Phone Bolivar Edwards MD Unavailable Yuliet Aguilar Unavailable Unavailable Mike Richard Primary Care Provider Unavailable Primary Care Provider Unavailkatelyn e Billy Madera Primary Care Provider Dr. Billy Madera Primary Care Provider Dr. Billy Madera Referring Provider LOUISE Curyr Attending Provider Unavailab LOUISE Bagley Attending Provider MD Wade Ferguson Attending Provider Unavailable LOUISE Holguin Referring Provider [phone] [place] AIR CREW SUPERVISOR, AIR CREW SUPERVISOR-C Michelle Attending Provider Dr. Mariah Miller Emergency Provider Dr. Alec Reyes Admit Provider Dr. Alec Reyes Attending Provider Dr. Alec Reyes Other Provider Dr. Nico Sweet Attending Provider [phone] Dr. Nico Sweet Other Provider [phone] Dr. Sandeep Fong Emergency Provider Dr. Yuan Singh Admit Provider Dr. Yuan Singh Attending Provider Dr. Yuan Singh Other Provider Dr. Wade Ferguson Attending Provider Dr. Haroon Nuno Attending Provider Dr. Haroon Nuno Other Provider Dr. Korey Fraser Other Provider Tosha AIR CREW SUPERVISOR, AIR CREW SUPERVISOR-C Michelle Other Provider Dr. Billy Madera Attending Provider Dr. Deon Rodriguez Emergency Provider Dr. Rubio Kaba Admit Provider Dr. Rubio Kaba Attending Provider Dr. Rubio Kaba Other Provider Dr. Katia Berumen Attending Provider Unavailable Dr. Katia Berumen Other Provider Unavailable Dr. Mango Yun Attending Provider Dr. Michaelle Heck Referring Provider Dr. Libia Sosa Emergency Provider Dr. Michaelle Heck Attending Provider Dr. Michaelle Heck Other Provider Arjun AIR CREW SUPERVISOR, AIR CREW SUPERVISOR-C Kaci Attending Provider SYMONE Aguilar Attending Provider Dr. Billy Madera Primary Care Provider Dr. Sandeep Fong Emergency Provider Dr. Yuan Singh Admit Provider Dr. Nico Sweet Attending Provider Dr. Nico Sweet Other Provider Dr. Haroon Nuno Other Provider Dr. Korey Fraser Other Provider Tosha AIR CREW SUPERVISOR, AIR CREW SUPERVISOR-C Michelle Other Provider Dr. Haroon Nuno Attending Provider Dr. Billy Madera Referring Provider [phone] Dr. Yuan Singh Attending Provider Dr. Yuan Singh Other Provider Givens AIR CREW SUPERVISOR, AIR CREW SUPERVISOR-C Michelle Attending Provider Dr. Billy Madera Primary Care Provider Dr. Yuan Singh Admit Provider Dr. Haroon Nuno Attending Provider Santy, Dr. Cervantes Primary Care Provider [phone] Dr. Billy Madera Referring Provider [phone] Santy, Dr. Cervantes Attending Provider [phone] Dr. Donald Heller Attending Provider Dr. Billy Madera Primary Care Provider [phone] Santy, Dr. Cervantes Attending Provider [phone] Dr. Billy Madera Referring Provider [phone] Donald Heller Attending Provider Dr. Billy Madera Primary Care Provider [phone] Dr. Billy Madera Attending Provider [phone] Dr. Billy Madera Referring Provider [phone] Carranza AIR CREW SUPERVISOR, AIR CREW SUPERVISOR-C Jorge Attending Provider [phone] Dr. Billy Madera Primary Care Provider [phone] Dr. Billy Madera Referring Provider [phone] Dillon AIR CREW SUPERVISOR, AIR CREW SUPERVISOR-C Jorge Attending Provider [phone] Dr. Billy Madera Attending Provider [phone] Dr. Billy Madera Primary Care Provider [phone] Dr. Billy Madera Referring Provider [phone] [facility] [place] he Attending Provider Anish Blue, Dr. Cervantes Primary Care Provider [phone] Santy, Dr. Cervantes Attending Provider [phone] Santy, Dr. Cervantes Referring Provider [phone] LOUISE Curry Attending Provider Dr. Haroon Lafleur Attending Provider Santy, Dr. Cervantes Primary Care Provider [phone] Santy, Dr. Cervantes Referring Provider [phone] Santy, Dr. Cervantes Primary Care Provider [phone] Santy, Dr. Cervantes Referring Provider [phone] Antoinette, LOUISE Ramirez Attending Provider Dr. Haroon Lafleur Attending Provider Tosha AIR CREW SUPERVISOR, AIR CREW SUPERVISOR-C Michelle Attending Provider Dr. Billy Madera Attending Provider [phone] Santy, Dr. Cervantes Primary Care Provider [phone] Santy, Dr. Cervantes Referring Provider [phone] LOUISE Curry Attending Provider SYMONE Orozco Attending Provider Dr. Billy Madera Primary Care Provider [phone] Santy, Dr. Cervantes Referring Provider [phone] Dr. Omi Frazier Emergency Provider Dr. Aracelis Gamez Admit Provider Dr. Aracelis Gamez Attending Provider Dr. Aracelis Gamez Other Provider Dr. Aracelis Gamez Referring Provider Dr. Nico Sweet Other Provider Dr. Michelle Clarke Attending Provider Dr. Michelle Clarke Other Provider Dr. Nico Sweet Attending Provider LOUISE Holguin Attending Provider Dr. Wade Ferguson Attending Provider Dr. Mariah Miller Emergency Provider Dr. Yuan Singh Admit Provider Dr. Yuan Singh Attending Provider Dr. Yuan Singh Other Provider Dr. Cindi Moraes Attending Provider Dr. Cindi Moraes Other Provider Dr. Billy Madera Primary Care Provider [phone] Dr. Billy Madera Referring Provider [phone] Dr. Billy Madera Attending Provider [phone] Arjun MOONEY, AIR CREW SUPERVISORSuri Clemons Attending Provider LOUISE Patterson Attending Provider Dr. Billy Madera Primary Care Provider [phone] Dr. Billy Madera Referring Provider [phone] Dr. Billy Madera Primary Care Provider [phone] Dr. Billy Madera Referring Provider [phone] Dr. Wade Ferguson Attending Provider LOUISE Holguin Attending Provider Dr. Sandepe Fong Emergency Provider Dr. Nico Sweetit Provider Dr. Nico Sweet Other Provider Dr. Kimberly Armstrong Attending Provider Dr. Kimberly Armstrong Other Provider Dr. Jacky Holland Emergency Provider Dr. Haroon Nuno Attending Provider Dr. Haroon Nuno Other Provider Dr. Korey Fraser Other Provider Dr. Inez Bello Other Provider Unavailable Dr. Dimitry Olmedo Other Provider Dr. Chapito Trejo Other Provider Unavailab raquel Givens AIR CREW SUPERVISOR, AIR CREW SUPERVISOR-C Michelle Other Provider Dr. Enid Hernandez Other Provider Dr. Enid Hernandez Attending Provider Fred, Dr. Cox Attending Provider Fred, Dr. Cox Other Provider Dr. Billy Madera Primary Care Provider Dr. Billy Madera Referring Provider LOUISE Patterson Attending Provider LOUISE Holguin Attending Provider Dr. Billy Madera Attending Provider Dr. Sandeep Fong Emergency Provider Dr. Nico Sweet Admit Provider Dr. Nico Sweet Other Provider Dr. Kimberly Armstrong Attending Provider Dr. Kimberly Armstrong Other Provider Dr. Jacky Holland Emergency Provider Dr. Haroon Nuno Attending Provider Dr. Haroon Nuno Other Provider Dr. Korey Fraser Other Provider Dr. Inez Bello Other Provider Unavailable Dr. Dimitry Olmedo Other Provider Dr. Chapito Trejo Other Provider Unavailab raquel Givens AIR CREW SUPERVISOR, AIR CREW SUPERVISOR-C Michelle Other Provider Dr. Enid Hernandez Referring Provider Dr. Enid Hernandez Other Provider Dr. Enid Hernandez Attending Provider Fred, Dr. Cox Attending Provider Fred, Dr. Cox Referring Provider Fred, Dr. Cox Other Provider Tosha AIR CREW SUPERVISOR, AIR CREW SUPERVISOR-C Michelle Attending Provider Dr. Billy Madera Primary Care Provider [phone] Dr. Billy Madera Referring Provider LOUISE Patterson Attending Provider Arjun AIR CREW SUPERVISOR, AIR CREW SUPERVISOR-C Kaci Attending Provider Dr. Sera Aguilar Emergency Provider Dr. Jorge Lee Admit Provider Dr. Jorge Lee Attending Provider Dr. Jorge Lee Other Provider Dr. Billy Madera Primary Care Provider [phone] Dr. Billy Madera Referring Provider [phone] Tosha AIR CREW SUPERVISOR, AIR CREW SUPERVISOR-C Michelle Attending Provider Arjun AIR CREW SUPERVISOR, AIR CREW SUPERVISOR-C Kaci Attending Provider Dr. Sera Aguilar Emergency Provider Dr. Jorge Lee Admit Provider Dr. Jorge Lee Attending Provider Dr. Jorge Lee Other Provider Dr. Billy Madera Primary Care Provider [phone] Dr. Billy Madera Referring Provider Dimas MELVIN, Birttney Nj Primary Care Provider [phone] Santy MELVIN, Dr. Cervantes Primary Care Provider Santy MELVIN, Dr. Cervantes Referring Provider Pari MELVIN, Dr. Crandall Attending Provider Norberto MELVIN, Dr. Pak Attending Provider Norberto MELVIN, Dr. Pak Emergency Provider Santy MELVIN, Billy Attending Provider Alma Holland MD, Dr. Rico Attending Provider Skyler MELVIN, Dr. Rico Emergency Provider Santy MELVIN, Dr. Cervantes Attending Provider Tosha AIR CREW SUPERVISOR-C, Michelle Attending Provider Tosha AIR CREW SUPERVISOR-C, Michelle Referring Provider Tosha AIR CREW SUPERVISOR-C, Michelle Other Provider Dr. Korey Fraser DO Attending Provider Santy MELVIN, Billy Referring Provider UnavailGrover Rahman Attending Provider Grover Pritchett Referring Provider Santy MELVIN, Dr. Cervantes Primary Care Provider Santy MELVIN, Dr. Cervantes Attending Provider Santy MELVIN, Dr. Cervantes Referring Provider Tosha AIR CREW SUPERVISOR-C, Michelle Attending Provider Billy Madera MD Attending Provider Alma Rodriguez MD, Dr. Chavarria Emergency Provider Santy MELVIN, Dr. Cervantes Primary Care Provider Santy MELVIN, Dr. Cervantes Referring Provider Santy MELVIN, Dr. Cervantes Attending Provider Michael MELVIN, Dr. Chavarria Attending Provider Santy MELVIN, Dr. Cervantes Primary Care Provider Givens AIR CREW SUPERVISOR-C, Michelle Attending Provider Tosha AIR CREW SUPERVISOR-C, Michelle Referring Provider Santy MELVIN, Dr. Cervantes Primary Care Provider Santy MELVIN, Billy Attending Provider Unavaila ble Ungerer AIR CREW SUPERVISOR-C, July Attending Provider [phone] Ungerer AIR CREW SUPERVISOR-C, July Referring Provider [phone] Santy MELVIN, Dr. Cervantes Primary Care Provider Santy MELVIN, Dr. Cervantes Referring Provider [phone] Grover Pritchett Attending Provider [phone] Grover Pritchett Referring Provider [phone] Tanika MELVIN, Dr. Gupta Attending Provider Santy MELVIN, Dr. Cervantes Primary Care Provider Santy MELVIN, Dr. Cervantes Referring Provider [phone] 0) Santy MELVIN, Dr. Cervantes Attending Provider [phone] [phone]) Dr. Candy Sagastume MD Referring Provider [phone] Shonda Caraballo Attending Provider [phone] Santy MELVIN, Dr. Cervantes Primary Care Physician Santy MELVIN, Billy Attending Physician Unavail able Givens AIR CREW SUPERVISOR-C, Michelle Attending Physician Santy MELVIN, Dr. Cervantes Referring Provider [phone]) Fortino AIR CREW SUPERVISOR-C, July Attending Physician Grover Pritchett Attending Physician [phone] Grover Pritchett Referring Provider [phone] Santy MELVIN, Dr. Cervantes Attending Physician [phone] Dr. Candy Sagastume MD Attending Physician Néstor MOONEY-CShonda Attending Physician [phone] Néstor AIR CREW SUPERVISOR-C, Shonda Referring Provider [phone] KATIA GUPTA Attending Unavailable BRITTNEY GONZALEZ Primary Care Unavailable FIDELIA VÁSQUEZ Attending UnavailBRITTNEY Camarena Primary Care Unavailable Santy MELVIN, Dr. Cervantes Primary Care Physician Tosha AIR CREW SUPERVISOR-C, Michelle Attending Physician [phone] Billy Madera MD Attending Physician Unavail able Tosha AIR CREW SUPERVISOR-C, Michelle Referring Provider Tosha AIR CREW SUPERVISOR, Michelle Attending Unavailable Tosha AIR CREW SUPERVISOR, Michelle Referring Unavailable Oleghe, Efewongbe Primary Care Unavailable Grover Pritchett Attending Unavailable Moreno GIL, Grover Referring Unavailable Oleghe, Efewongbe Primary Care Unavailable July Freitas Attending Unavailable July Freitas Referring Unavailable Oleghe, Efewongbe Primary Care Unavailable Grover Pritchett Attending Unavailable Moreno GIL, Grover Referring Unavailable Oleghe, Efewongbe Primary Care Unavailable Shonda Palm Attending Unavailable Shonda Palm Referring Unavailable Oleghe, Efewongbe Primary Care Unavailable Tosha AIR CREW SUPERVISOR, Michelle Attending Unavailable Tosha AIR CREW SUPERVISOR, Michelle Referring Unavailable Oleghe, Efewongbe Primary Care Unavailable Tosha AIR CREW SUPERVISOR, Michelle Attending Unavailable Tosha AIR CREW SUPERVISOR, Michelle Referring Unavailable Oleghe, Efewongbe Primary Care Unavailable Oleghe, Efewongbe Primary Care Unavailable Jacky Holland Attending Unavailable Oleghe, Efewongbe Primary Care Unavailable Deon Rodriguez Attending Unavailable Grover Pritchett Attending Unavailable Moreno GIL, Grover Referring Unavailable Oleghe, Efewongbe Primary Care Unavailable Grover Pritchett Attending Unavailable Moreno GIL, Grover Referring Unavailable Oleghe, Efewongbe Primary Care Unavailable Candy Sagastume Attending Unavailable Candy Sagastume Referring Unavailable Oleghe, Efewongbe Primary Care Unavailable Oleghe LEONID Efholliebe Attending Unavailabl e Oleghe, Efewongbe Primary Care Unavailable Oleghe Billy JAQUEZ Attending Unavailabl e Oleghe, Efewongbe Primary Care Unavailable Oleghe Billy JAQUEZ Attending Unavailabl e Oleghe, Efewongbe Primary Care Unavailable Oleghe OLS, Efewongbe Attending Unavailabl e Oleghe, Efewongbe Primary Care Unavailable Oleghe OLS, Efewongbe Referring Unavailabl e Friend, Thierry Attending Unavailable Oleghe, Efewongbe Primary Care Unavailable Friend, Thierry Referring Unavailable Shonda Palm Attending Unavailable Oleghe, Efewongbe Primary Care Unavailable July Freitas Attending Unavailable Oleghe, Efewongbe Referring Unavailable Oleghe, Efewongbe Primary Care Unavailable Candy Sagastume Attending Unavailable Oleghe, Efewongbe Referring Unavailable Oleghe, Efewongbe Primary Care Unavailable Tosha MOONEY, Michelle Attending Unavailable Oleghe, Efewongbe Referring Unavailable Oleghe, Efewongbe Primary Care Unavailable Oleghe, Efewongbe Primary Care Unavailable Pasha Thornton Attending Unavailable Grover Pritchett Attending Unavailable Oleghe, Efewongbe Referring Unavailable Oleghe, Efewongbe Primary Care Unavailable Oleghe OLS, Efewongbe Attending Unavailabl e Oleghe, Efewongbe Primary Care Unavailable Michelle Givens NP Attending Unavailable Oleghe, Efewongbe Referring Unavailable Oleghe, Efewongbe Primary Care Unavailable July Freitas Attending Unavailable Oleghe, Efewongbe Referring Unavailable Oleghe, Efewongbe Primary Care Unavailable Shonda Palm Attending Unavailable Oleghe, Efewongbe Referring Unavailable Oleghe, Efewongbe Primary Care Unavailable Korey Fraser Attending Unavailable Michelle Givens NP Referring Unavailable Oleghe, Efewongbe Primary Care Unavailable Michelle Givens NP Consulting Unavailable April Sarmiento Attending Unavailabl e Oleghe, Efewongbe Referring Unavailable Oleghe, Efewongbe Primary Care Unavailable Oleghe, Efewongbe Referring Unavailable Oleghe, Efewongbe Primary Care Unavailable Michelle Givens NP Attending Unavailable April Sarmiento Attending Unavailabl e Oleghe, Efewongbe Referring Unavailable Oleghe, Efewongbe Primary Care Unavailable Michelle Givens NP Attending Unavailable Oleghe, Efewongbe Referring Unavailable Oleghe, Efewongbe Primary Care Unavailable Oleghe, Efewongbe Attending Unavailable Oleghe, Efewongbe Referring Unavailable Oleghe, Efewongbe Primary Care Unavailable Grover Pritchett Attending Unavailable Oleghe, Efewongbe Referring Unavailable Oleghe, Efewongbe Primary Care Unavailable Oleghe, Efewongbe Attending Unavailable Oleghe, Efewongbe Referring Unavailable Oleghe, Efewongbe Primary Care Unavailable Garima Hernandez Attending Unavailable Oleghe, Efewongbe Referring Unavailable Oleghe, Efewongbe Primary Care Unavailable Raz Yañez Attending Unavailable Oleghe, Efewongbe Referring Unavailable Oleghe, Efewongbe Primary Care Unavailable Michelle Givens NP Attending Unavailable Oleghe, Efewongbe Referring Unavailable Oleghe, Efewongbe Primary Care Unavailable Shonda Palm Attending Unavailable Oleghe, Efewongbe Referring Unavailable Oleghe, Efewongbe Primary Care Unavailable Oleghe, Efewongbe Attending Unavailable Oleghe, Efewongbe Referring Unavailable Oleghe, Efewongbe Primary Care Unavailable Oleghe, Efewongbe Attending Unavailable Oleghe, Efewongbe Referring Unavailable Oleghe, Efewongbe Primary Care Unavailable Oleghe, Efewongbe Attending Unavailable Oleghe, Efewongbe Referring Unavailable Oleghe, Efewongbe Primary Care Unavailable Allergies Allergy Classification Reported Allergen(s) Allergy Type Date of Onset Reaction(s) Facility (20 sources) amoxicillin; Translations: [AMOXICILLIN] drug allergy 12-20-19 09 Hives, Rash [facility] Work Phone: (3 sources) cephalexin drug allergy 06-01-20 16 GI upset [facility] Work Phone: (3 sources) Cephalosporins (Antibiotic) drug allergy 06-01-20 16 trouble breathing and lip numbing [facility] Work Phone: (3 sources) ciprofloxacin drug allergy 06-01-20 16 edema [facility] Work Phone: (3 sources) codeine drug allergy 06-01-20 16 [facility] Work Phone: (3 sources) Corticosteroids drug allergy 06-01-20 16 anxious [facility] Work Phone: (3 sources) gabapentin drug allergy 06-01-20 16 dyspnea [facility] Work Phone: [phone] (3 sources) levoFLOXacin drug allergy 06-01-20 16 hives [facility] Work Phone: [phone] (3 sources) meperidine drug allergy 06-01-20 16 [facility] Work Phone: [phone] (3 sources) nortriptyline drug allergy 06-01-20 16 headache [facility] Work Phone: [phone] (3 sources) sertraline drug allergy 06-01-20 16 felt poorly [facility] Work Phone: [phone] (3 sources) venlafaxine drug allergy 06-01-20 16 anxiety increase [facility] Work Phone: (20 sources) Codeine; Translations: [CODEINE] Drug Allergy 04-14-20 16 Other: See Comments [facility] (20 sources) Contrast media; Translations: [RED DYE] Drug Allergy 04-14-20 16 [facility] (20 sources) levoFLOXacin; Translations: [LEVOFLOXACIN] Drug Allergy 04-14-20 16 [facility] (3 sources) Omeprazole; Translations: [OMEPRAZOLE] Drug Allergy 04-14-20 16 Shortness of Breath [facility] (4 sources) Pseudoephedrine; Translations: [PSEUDOEPHEDRINE] Drug Allergy 04-14-20 16 Rash [facility] (3 sources) raNITIdine; Translations: [RANITIDINE] Drug Allergy 04-14-20 16 [facility] (2 sources) Cephalexin Drug Allergy 06-01-20 16 Other (See Comments) [place] sources[place] Iodides Propensity to adverse reactions to drug 07-14-20 19 [place] (20 sources) Pseudoephedrine; Translations: [pseudoephedrine HCl] Drug Allergy 12-20-19 09 Shortness of breath [facility] Work Phone: (1 source) Morphine And Related Propensity to adverse reactions to drug 12-20-19 09 [facility] Work Phone: (20 sources) gabapentin; Translations: [GABAPENTIN] Drug Allergy 03-22-[address] [facility] (20 sources) predniSONE Drug Allergy 10-29-[address] [facility] (20 sources) HYDROcodone; Translations: [HYDROCODONE] Drug Allergy 09-03-[address] [facility] (20 sources) clonazePAM; Translations: [CLONAZEPAM] Drug Allergy 03-18-[address] [facility] (20 sources) Triiodobenzoic Acids; Translations: [IODINATED CONTRAST MEDIA] Allergy to substance 05-31-20 [facility] (1 source) Iodinated Contrast Media Propensity to adverse reactions to drug 01-10-20 Unknown [facility] (1 source) Amoxicillin Drug Allergy 06-06-20 [facility] (1 source) clonazePAM Drug Allergy 06-06-20 [facility] (1 source) Codeine Drug Allergy 06-06-20 [facility] (1 source) gabapentin Drug Allergy 06-06-20 [facility] (1 source) HYDROcodone Drug Allergy 06-06-20 [facility] (1 source) levoFLOXacin Drug Allergy 06-06-20 [facility] (1 source) predniSONE Drug Allergy 06-06-20 [facility] (1 source) Iodinated Contrast Media Drug allergy (disorder) 06-06-20 [facility] Medications Current Medications Medication Drug Class(es) Dates Sig (Normalized) Sig (Original) acetaminophen 500 mg oral tablet (20 sources) Start: 06-04-2023 End: 06-04-2024 Start: 03-16-2020 End: 05-28-2023 Start: 03-16-2020 End: 05-28-2023 [id number] 200 actuat albuterol 0.09 mg/actuat metered dose inhaler (20 sources) beta2-Adrenergic Agonist Start: 12-13-2023 take 2 puff(s) by inhalation every four hours as needed for wheezing albuterol HFA (PROVENTIL HFA, VENTOLIN HFA) 90 mcg/actuation inhaler Inhale 2 Puffs as instructed every 4 hours as needed for wheezing/shortness of breath. 0 12/13/2023 Active Start: 11-20-2021 take 1 puff(s) by in halation every six hours Albuterol Sulfate Active 2 PUFF INHALATION EVERY 6 HOURS 18 Marline 14th, 2022 12:41pm Start: 08-15-2021 End: 11-20-2021 take 1 puff(s) by inhalation every six hours Albuterol Sulfate Discontinued 2 PUFF INHALATION EVERY 6 HOURS August 15, 2021 10:16am November 20, 2021 12:41pm Start: 08-15-2021 take 1 puff(s) by in halation every six hours Albuterol Sulfate Active 2 PUFF INHALATION EVERY 6 HOURS August 15, 2021 10:16am Start: 02-16-2020 End: 11-06-2022 Start: 02-16-2020 End: 11-06-2022 Start: 02-16-2020 End: 07-24-2022 take 1 puff(s) by inhalation every six hours Albuterol Sulfate Discontinued 2 PUFF INHALATION EVERY 6 HOURS May 08, 2022 6:46am July 24, 2022 2:05pm Start: 11-08-2019 End: 11-08-2019 albuterol sulfate Discontinu ed 2.5 MG continuous nebulization ONCE November 08, 2019 12:04pm November 08, 2019 12:34pm Start: 06-01-2016 End: 09-24-2016 ALBUTEROL SULFATE (2.5 MG/3M L) 0.083% NEBU INH four times a day as needed ALBUTEROL SULFATE [id number] Beata Somers Start: 06-01-2016 take 1-2 puff(s) by inhalation every four hours as needed VENTOLIN HFA 108 (90 Base) MCG/ACT AERS INH 1-2 puffs q4h as needed ALBUTEROL SULFATE [id number] July Sierra Nbole STRESS TEST TECHNICIAN Start: 06-01-2016 take 1-2 puff(s) by inhalation every four hours as needed VENTOLIN HFA 108 (90 Base) MCG/ACT AERS INH 1-2 puffs q4h as needed ALBUTEROL SULFATE [id number] July Sierra Noble STRESS TEST TECHNICIAN albuterol sulfate HFA 108 (90 Base) MCG/ACT inhaler (2 sources) Start: 08-08-2020 take 2 puff(s) by mouth every six hours albuterol sulfate HFA 108 (90 Base) MCG/ACT inhaler inhale 2 puffs by mouth and INTO THE LUNGS every 6 hours if neede... (REFER TO PRESCRIPTION NOTES). 0 08/08/2020 Active aluminum hydroxide 40 mg/ml / magnesium hydroxide 40 mg/ml oral suspension (4 sources) Start: 04-27-2025 bisacodyl 5 mg delayed release oral tablet (20 sources) Stimulant Laxative Start: 11-13-2021 Start: 05-09-2020 End: 09-09-2020 Start: 06-01-2016 [facility], then take 1 tablet by mouth as needed BISACODYL EC 5 MG TBEC Two tablets by mouth daily as needed BISACODYL [id number] July Noble LPN Blood-Glucose Meter (Accu-Ch ek Aundrea Plus Meter) misc (4 sources) Start: 08-27-2022 Blood-Glucose Meter (Accu-Chek Aundrea Plus Meter) misc Active 0 .Route 1 August 27, 2022 8:00am As directed Start: 07-22-2022 End: 08-27-2022 Blood-Glucose Meter (Accu-Ch ek Aundrea Plus Meter) misc Discontinued 0 .Route 1 July 22, 2022 12:00am August 27, 2022 8:00am As directed budesonide 0.5 mg/ml inhalation suspension (20 sources) Corticosteroid Start: 01-05-2024 budesonide (PU LMICORT) 1 mg/2 mL nebulizer solution Use 1 mg via nebulizer once daily. 0 01/05/2024 Active Start: 08-13-2023 Start: 08-13-2023 Start: 11-28-2021 End: 11-02-2022 Start: 11-28-2021 End: 11-02-2022 clobetasol propionate 0.5 mg/ml topical cream (5 sources) Corticosteroid Start: 11-26-2021 Clobetasol Act erick 1 APPLIC TOPICAL TWICE A DAY 60 November 26, 2021 1:52pm clotrimazole 10 mg/ml vaginal cream (8 sources) Azole Antifungal Start: 04-27-2025 End: 05-28-2025 Start: 04-16-2025 End: 04-23-2025 docusate sodium 100 mg oral capsule (20 sources) Start: 09-26-2020 take 1 capsule by mo ut twice daily for constipation DOK 100 MG capsule take 1 capsule by mouth twice a day if needed for constipation 0 09/26/2020 Active Start: 10-23-2019 End: 11-08-2019 take 200 mg by mouth at bedtime Docusate Sodium Discon tinued 200 MG PO AT BEDTIME October 22, 2019 11:00pm November 08, 2019 11:41am Start: 06-01-2016 End: 01-10-2024 Start: 06-01-2016 take 1 tablet by dylon twice daily COLACE 100 MG CAPS One tablet by mouth twice daily DOCUSATE SODIUM [id number] July Noble STRESS TEST TECHNICIAN 0.5 ml dulaglutide 1.5 mg/ml auto-injector (20 sources) GLP-1 Receptor Agonist Start: 12-18-2023 Flash Glucose Scanning [place] (Freestyle Tanika 2 [place]) misc (13 sources) Start: 01-31-2021 Flash Glucose Scanning [place] (Freestyle Tanika 2 [place]) misc Active 0 .ROUTE .MEDSUPPLY January 31, 2021 5:03pm As directed Start: 01-31-2021 Flash Glucose Scanning [place] (Freestyle Tanika 2 [place]) misc Active 0 .ROUTE .MEDSUPPLY January 30, 2021 11:00pm As directed Start: 01-31-2021 Flash Glucose Scanning [place] (Freestyle Tanika 2 [place]) misc Active 0 .ROUTE .MEDSUPPLY January 31, 2021 12:00am As directed Flash Glucose Sensor (Freest yle Tanika 2 Sensor) kit (20 sources) Start: 08-26-2022 Flash Glucose Sensor (Freestyle Tanika 2 Sensor) kit Active 0 .ROUTE .MEDSUPPLY 2 August 26, 2022 12:44pm As directed Start: 06-04-2022 End: 08-26-2022 Flash Glucose Sensor (Freest yle Tanika 2 Sensor) kit Discontinued 0 .ROUTE .MEDSUPPLY 2 June 04, 2022 7:25am August 26, 2022 12:44pm As directed Start: 06-04-2022 Flash Glucose Sensor (Freestyle Tanika 2 Sensor) kit Active 0 .ROUTE .MEDSUPPLY 2 June 04, 2022 7:25am As directed Start: 01-29-2022 End: 06-04-2022 Flash Glucose Sensor (Freest yle Tanika 2 Sensor) kit Discontinued 0 .ROUTE .MEDSUPPLY 2 January 29, 2022 11:01am June 04, 2022 7:25am As directed Start: 01-29-2022 Flash Glucose Sensor (Freestyle Tanika 2 Sensor) kit Active 0 .ROUTE .MEDSUPPLY 2 January 29, 2022 12:01pm As directed Start: 01-31-2021 Flash Glucose Sensor (Freestyle Tanika 2 Sensor) kit Active 0 .ROUTE .MEDSUPPLY 2 January 31, 2021 5:04pm As directed Start: 01-31-2021 End: 01-29-2022 Flash Glucose Sensor (Freest yle Tanika 2 Sensor) kit Discontinued 0 .ROUTE .MEDSUPPLY 2 January 30, 2021 11:00pm January 29, 2022 11:02am As directed Start: 01-31-2021 End: 01-29-2022 Flash Glucose Sensor (Freest yle Tanika 2 Sensor) kit Discontinued 0 .ROUTE .MEDSUPPLY 2 January 31, 2021 12:00am January 29, 2022 12:02pm As directed fluticasone propionate 0.05 mg/actuat metered dose nasal spray (20 sources) Corticosteroid Start: 12-18-2023 Start: 09-29-2023 take 1 spray(s) nasa l route once daily fluticasone (FLONASE) 50 mcg/actuation nasal spray Use 1 [place] in each nostril once daily. 0 09/29/2023 Active Start: 12-27-2020 End: 04-29-2021 Start: 12-27-2020 End: 04-29-2021 take 1 spray(s) nasal route once daily Fluticasone Propionate (Flonase Allergy Relief) 50 mcg/actuation spray,suspension Discontinued 1 SPRAY INTRANASAL DAILY December 26, 2020 11:00pm April 29, 2021 12:58pm administer into each nostril FREESTYLE TANIKA 2 READER (1 source) Start: 10-19-2023 FREESTYLE LIBR E 2 READER 1 Each every year. 0 10/19/2023 Active FREESTYLE TANIKA 2 SENSOR kit (1 source) Start: 12-26-2023 FREESTYLE LIBR E 2 SENSOR kit 1 Each every 2 weeks. 0 12/26/2023 Active furosemide 40 mg oral tablet (20 sources) Loop Diuretic Start: 08-24-2024 Start: 12-13-2023 take 1 tablet by dylon th twice daily furosemide (LASIX) 40 mg tablet Take 40 mg by mouth two times a day. 0 12/13/2023 Active Start: 10-13-2021 End: 07-03-2024 Start: 08-12-2021 End: 08-12-2021 Furosemide (Lasix) 20 mg tab let Discontinued 40 MG PO TWICE DAILY WITH MEALS August 12, 2021 12:41pm August 12, 2021 12:42pm Hold for heart less than 60 or systolic blood pressure less than 110 mmHg. Start: 08-12-2021 End: 10-12-2021 Start: 05-10-2021 End: 08-12-2021 Start: 09-03-2020 take 0.5 tablet by m outh once daily furosemide (LASIX) 40 MG tablet take 1/2 tablet by mouth once daily 0 09/03/2020 Active Start: 07-19-2020 End: 11-25-2020 take 20 mg by mouth once daily Furosemide Discontinued 20 MG PO DAILY November 06, 2020 6:02pm November 25, 2020 1:13pm Start: 2020 End: 11-25-2020 Start: 2020 End: 07-19-2020 take 40 mg by mouth once daily Furosemide Discontinued 40 MG PO DAILY 2020 12:00am July 19, 2020 10:20am glucose 0.4 mg/mg oral gel (20 sources) Start: 07-23-2023 Start: 07-23-2023 Handicap Placard (13 sources) Start: 12-12-[address] Active 0 .ROUTE .MEDSUPPLY December 12, 2020 1:38pm As directed, length of time 3 years Start: 12-12-[address] Active 0 .ROUTE .MEDSUPPLY December 11, 2020 11:00pm As directed, length of time 3 years Start: 12-12-[address] Active 0 .ROUTE .MEDSUPPLY December 12, 2020 12:00am As directed, length of time 3 years hypromellose 17 mg/ml ophthalmic solution (4 sources) Start: 04-27-2025 indomethacin 50 mg oral capsule (2 sources) Nonsteroidal Anti-inflammatory Drug Start: 06-12-2020 take 1 capsule by mouth twice daily at mealtime indomethacin (INDOCIN) 50 MG capsule take 1 capsule by mouth twice a day with food or milk 0 06/12/2020 Active Insulin Glargine (Basaglar Kwikpen U-100 Insulin) 100 unit/mL (3 mL) insulin pen (1 source) Start: 10-12-2021 Insulin Glargine (Basaglar Kwikpen U-100 Insulin) 100 unit/mL (3 mL) insulin pen Active 36 UNIT SC DAILY October 12, 2021 1:23am daily at bedtime 3 ml insulin lispro 100 unt/ml pen injector (20 sources) Insulin Analog Start: 01-05-2024 HUMALOG KWIKPEN INSULIN 100 unit/mL Start: 08-19-2021 Insulin Lispro (Humalog Kwikpen Insulin) 100 unit/mL insulin pen Active 17 UNIT SC THREE TIMES A DAY 45.9 90 August 19, 2021 3:07pm Hold if glucose less than 130 mg/dl Start: 08-12-2021 End: 08-19-2021 Insulin Lispro (Humalog Kwik pen Insulin) 100 unit/mL insulin pen Discontinued 15 UNIT SC THREE TIMES A DAY 0 August 12, 2021 12:41pm August 19, 2021 3:08pm Hold if glucose less than 130 mg/dl Start: 08-10-2021 End: 08-12-2021 Insulin Lispro (Humalog Kwik pen Insulin) 100 unit/mL insulin pen Discontinued 10 UNIT SC THREE TIMES A DAY 0 August 10, 2021 9:23am August 12, 2021 12:42pm 12 units AM 12 units lunch 12 units dinner Hold if glucose less than 130 mg/dl Start: 05-22-2021 End: 08-10-2021 Insulin Lispro (Humalog Kwik pen Insulin) 100 unit/mL insulin pen Discontinued 10 UNIT SC THREE TIMES A DAY May 22, 2021 12:17pm August 10, 2021 9:23am 10 units AM 12 units lunch 10 units dinner Start: 01-23-2021 End: 05-22-2021 Insulin Lispro (Humalog Kwik pen Insulin) 100 unit/mL insulin pen Discontinued 15 UNIT SC THREE TIMES A DAY 54 January 23, 2021 1:45pm May 22, 2021 12:18pm Start: 07-26-2020 End: 08-20-2020 Insulin Lispro (Humalog Kwik pen Insulin) 100 unit/mL insulin pen Discontinued 13 UNIT SC THREE TIMES A DAY July 26, 2020 4:18pm August 20, 2020 11:56am Start: 05-17-2020 End: 06-04-2024 Start: 05-17-2020 End: 07-26-2020 Insulin Lispro (Humalog Kwik pen Insulin) 100 unit/mL insulin pen Discontinued 15 UNIT SC THREE TIMES A DAY 60 May 16, 2020 11:00pm July 26, 2020 4:18pm Start: 12-01-2019 End: 01-30-2020 Start: 10-24-2019 End: 11-08-2019 Insulin Lispro Discontinued 10 UNIT SC 3 TIMES DAILY WITH MEALS October 24, 2019 1:55pm November 08, 2019 11:40am Start: 08-25-2016 End: 11-08-2019 Start: 08-25-2016 End: 11-08-2019 Start: 08-25-2016 End: 10-24-2019 Insulin Lispro Discontinued 0 SC 3 TIMES DAILY WITH MEALS 15 October 24, 2019 9:31am October 24, 2019 1:56pm sliding scale subcut 3 times daily with meals; sliding scale Start: 06-01-2016 HUMALOG KWIKPE N 100 UNIT/ML SOPN as directed INSULIN LISPRO (HUMAN) [id number] July Sierra Noble STRESS TEST TECHNICIAN Start: 06-01-2016 HUMALOG KWIKPE N 100 UNIT/ML SOPN as directed INSULIN LISPRO (HUMAN) [id number] July Sierra Noble STRESS TEST TECHNICIAN insulin lispro ( HUMALOG) 100 UNIT/ML injection [...] 301-350 8 units 351-400 10 units 02-22-2020 [facility] ([id number]) 0 02/22/2020 Active lidocaine 0.05 mg/mg medicated patch (20 sources) Antiarrhythmic, Amide Local Anesthetic Start: 12-18-2023 End: 09-01-2024 Start: 06-03-2022 Start: 06-03-2022 apply 1 dose topically once da bipin Lidocaine Active 2 PATCH TOPICAL DAILY June 02, 2022 11:00pm leave on most painful area for up to 12 hrs linaclotide 0.29 mg oral cap sadie (20 sources) Guanylate Cyclase-C Agonist Start: 12-04-2024 Start: 06-20-2024 End: 12-04-2024 Start: 06-01-2016 End: 07-31-2016 take 1 tablet by mouth once daily LINZESS 145 MCG CAPS One tablet by mouth daily LINACLOTIDE [id number] Cheyenne Singh LPN Start: 06-01-2016 take 1 tablet by dylon th once daily LINZESS 145 MCG CAPS One tablet by mouth daily LINACLOTIDE [id number] July Noble LPN Start: 06-01-2016 End: 07-31-2016 take 1 tablet by mouth once daily LINZESS 145 MCG CAPS One tablet by mouth daily LINACLOTIDE [id number] Cheyenne Singh LPN losartan potassium 50 mg ora l tablet (20 sources) Angiotensin 2 Receptor Bernarda Start: 04-25-2024 Start: 12-23-2023 take 1 tablet by dylon th once daily losartan (COZAAR) 50 mg tablet Take 50 mg by mouth once daily. 0 12/23/2023 Active Start: 11-10-2021 End: 12-28-2023 Start: 12-01-2019 End: 05-28-2021 Start: 12-29-2018 End: 11-08-2019 Start: 12-29-2018 End: 01-12-2019 take 12.5 mg by mouth once daily Losartan Discontinued 12.5 MG PO DAILY December 28, 2018 11:00pm January 12, 2019 2:01pm multivit,calc,mins/iron/foli c (THERA-M ORAL) (1 source) take 1 tablet by mouth once daily multivit,calc,mins/iron/folic (THERA-M ORAL) Take 1 tablet by mouth once daily. 0 Active nystatin 100 unt/mg topical powder (7 sources) Polyene Antifungal St ar t: 25 ondansetron 4 mg oral tablet (20 sources) Serotonin-[address] ar t: 24 take 1 tablet by mouth every six hours as needed ondansetron (ZOFRAN) 4 mg tablet Take 4 mg by mouth every 6 hours as needed for nausea/vomiting. 0 12/31/2023 Active Start: 12-28-2023 Start: 04-16-2023 End: 12-28-2023 OXYGEN, HOME THERAPY, (1 source) OXYGEN, HOME THE RAPY, Inhale 4 L/min as instructed continuous. 0 Active Pen Needle, Diabetic (18 sources) Start: 02-11-2022 Pen Needle, Di abetic Active EACH .ROUTE .MEDSUPPLY February 11, 2022 3:09pm 4x/day Start: 02-11-2022 Pen Needle, Di abetic Active EACH .ROUTE .MEDSUPPLY February 11, 2022 4:09pm 4x/day Start: 12-06-2020 Pen Needle, Di abetic Active EACH .ROUTE .MEDSUPPLY December 06, 2020 1:42pm As directed Start: 12-06-2020 End: 02-11-2022 Pen Needle, Diabetic Discont inued EACH .ROUTE .MEDSUPPLY December 05, 2020 11:00pm February 11, 2022 3:10pm As directed Start: 12-06-2020 End: 02-11-2022 Pen Needle, Diabetic Discont inued EACH .ROUTE .MEDSUPPLY December 06, 2020 12:00am February 11, 2022 4:10pm As directed polyethylene glycol 3350 170 00 mg powder for oral solution (20 sources) Osmotic Laxative Start: 12-08-2024 Start: 12-28-2023 End: 06-01-2024 microencapsulated potassium chloride 20 meq extended release oral tablet (20 sources) Start: 12-23-2023 take 1 tablet by mouth twice daily potassium chloride ER (KLOR-CON) 20 mEq tablet Take 20 mEq by mouth two times a day. 0 12/23/2023 Active Start: 05-25-2023 End: 08-22-2023 Start: 05-25-2023 End: 08-22-2023 predniSONE 2.5 mg oral table t (20 sources) Start: 08-24-2024 Start: 08-24-2024 End: 10-19-2024 Start: 08-02-2024 End: 10-19-2024 Start: 06-04-2024 End: 07-03-2024 Start: 08-22-2023 End: 04-25-2024 Start: 05-30-2023 End: 06-04-2023 Start: 01-28-2023 End: 02-25-2023 Start: 09-03-2022 End: 11-16-2022 Start: 10-23-2021 End: 10-28-2021 Start: 04-12-2020 End: 05-09-2020 Start: 04-12-2020 End: 05-09-2020 Start: 10-23-2019 End: 12-01-2019 Start: 10-23-2019 End: 11-08-2019 take 40 mg by mouth once daily at mealtime Prednisone Discontinued 40 MG PO DAILY October 22, 2019 11:00pm November 08, 2019 11:40am With food Start: 09-20-2019 End: 10-16-2019 Start: 09-20-2019 End: 10-16-2019 take 40 mg by mouth once daily Prednisone Discontinued 40 MG PO DAILY September 20, 2019 12:00am October 16, 2019 4:03pm Start: 06-18-2019 End: 07-14-2019 Start: 06-18-2019 End: 07-14-2019 take 40 mg by mouth once daily Prednisone Discontinued 0 MG PO DAILY June 18, 2019 12:00am July 14, 2019 11:15am 40mg daily x3 days 30mg daily x3 days 20mg daily x3 days 10mg daily x3 days Start: 09-24-2016 End: 10-06-2016 PREDNISONE 10 MG TABS Take 4 tabs by mouth for 3 days, then 3 tabs by mouth for 3 days, then 2 tabs by mourth for 3 days, then 1 tab by mouth for 3 days. PREDNISONE [id number] Haroon Nuno Start: 08-19-2016 End: 08-31-2016 PREDNISONE 10 MG TABS Take 4 tabs by mouth for 3 days, then 3 tabs by mouth for 3 days, then 2 tabs by mourth for 3 days, then 1 tab by mouth for 3 days. 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 0 12/27/2023 Active Start: 12-18-2023 Start: 04-24-2022 triamcinolone acetonide 0.001 mg/mg topical ointment (2 sources) Corticosteroid Start: 06-04-2020 triamcinolone (KENALOG) 0.1 % ointment APPLY TO AFFECTED AREAS TWICE DAILY 0 06/04/2020 Active (20 sources) Start: 04-27-2025 Start: 08-24-2024 End: 10-19-2024 Start: 06-01-2024 End: 07-03-2024 Start: 01-17-2024 End: 01-17-2024 Start: 01-17-2024 End: 01-31-2024 Start: 07-23-2023 End: 07-03-2024 Start: 07-23-2023 End: 10-19-2024 Start: 07-23-2023 Start: 03-23-2023 Start: 01-06-2023 Start: 11-16-2022 Start: 09-11-2022 Start: 08-27-2022 End: 09-11-2022 Start: 08-26-2022 End: 01-06-2023 Start: 08-26-2022 Start: 07-22-2022 End: 09-11-2022 Start: 07-22-2022 End: 08-27-2022 Start: 06-04-2022 End: 08-26-2022 Start: 02-11-2022 Start: 01-29-2022 End: 06-04-2022 Start: 07-23-2021 End: 07-23-2021 Start: 01-31-2021 End: 03-23-2023 Start: 01-31-2021 Start: 01-31-2021 End: 01-29-2022 Start: 12-12-2020 Start: 12-06-2020 End: 02-11-2022 Start: 11-05-2020 End: 07-22-2022 Start: 07-24-2020 End: 08-16-2020 Start: 12-21-2019 End: 12-22-2019 Start: 12-20-2019 End: 12-21-2019 Start: 11-22-2019 End: 12-22-2019 Start: 11-20-2019 End: 11-22-2019 Start: 07-25-2019 End: 11-08-2019 Start: 07-25-2019 End: 07-25-2019 Completed/Discontinued Medications Medication Drug Class(es) Dates Sig (Normalized) Sig (Original) Accu Check Aundrea Plus Meter (13 sources) Start: 11-20-2019 End: 11-22-2019 Accu Check Aundrea Plus Meter Discontinued November 20, 2019 9:21am November 22, 2019 9:23am test blood sugar 3 times a day Start: 11-20-2019 End: 11-22-2019 Accu Check Aundrea Plus Meter Discontinued November 19, 2019 11:00pm November 22, 2019 8:23am test blood sugar 3 times a day Start: 11-20-2019 End: 11-22-2019 Accu Check Aundrea Plus Meter Discontinued November 20, 2019 12:00am November 22, 2019 9:23am test blood sugar 3 times a day acetaminophen 325 mg / HYDRO codone bitartrate 5 mg oral tablet (20 sources) Opioid Agonist Start: 08-28-2022 End: 09-01-2022 Start: 08-28-2022 End: 09-01-2022 Start: 08-28-2022 take 1 tablet by dylon th every six hours Hydrocodone-Acetaminophen Active 1 TABLET PO EVERY 6 HOURS 10 August 28, 2022 Start: 06-29-2020 End: 07-02-2020 Start: 06-29-2020 End: 07-02-2020 Start: 06-29-2020 End: 07-02-2020 take 1 tablet by mouth every six hours as needed Hydrocodone-Acetaminophen Discontinued 1 TABLET PO EVERY 6 HOURS NEEDED 07 11June 29, 2020 July 02, 2020 12:03am Start: 06-03-2020 End: 06-12-2020 Start: 06-03-2020 End: 06-12-2020 Start: 06-03-2020 End: 06-12-2020 take 0.5 tablet by mouth twice daily Hydrocodone-Acetaminophen ([place]) 5-325 mg tablet Discontinued 0.5 TABLET PO TWICE A DAY June 03, 2020 June 12, 2020 10:58am Start: 06-01-2016 take 1 tablet by dylon th three times daily as needed NORCO 5-325 MG TABS 1 tab po three times a day as needed HYDROCODONE-ACETAMINOPHEN [id number] July Sierra Aide DARNELLN Start: 06-01-2016 End: 08-19-2016 take 1 tablet by mouth three times daily as needed NORCO 5-325 MG TABS 1 tab po three times a day as needed HYDROCODONE-ACETAMINOPHEN [id number] July Sierra Aide DARNELLN Start: 06-01-2016 End: 08-19-2016 take 1 tablet by mouth three times daily as needed NORCO 5-325 MG TABS 1 tab po three times a day as needed HYDROCODONE-ACETAMINOPHEN [id number] July Sierra Noble STRESS TEST TECHNICIAN albuterol 0.833 mg/ml / ipratropium bromide 0.167 mg/ml inhalation solution (20 sources) Anticholinergic, beta2-Adrenergic Agonist Start: 09-05-2020 ipratropium-albuterol (DUONEB) 0.5-2.5 (3) MG/3ML SOLN nebulizer solution inhale contents of 1 vial ( 3 milliliters ) in nebulizer every 4 ... (REFER TO PRESCRIPTION NOTES). 0 09/05/2020 Active Start: 04-12-2020 End: 11-10-2022 Start: 04-12-2020 End: 11-10-2022 Start: 04-12-2020 End: 02-11-2022 take 1 mL by inhalation every four hours as needed Ipratropium-Albuterol Discontinued 3 ML INHALATION EVERY 4 HOURS NEEDED September 10, 2021 3:39pm February 11, 2022 7:22am Start: 06-18-2019 End: 11-08-2019 Start: 08-24-2016 End: 11-08-2019 Start: 08-24-2016 End: 11-08-2019 take 1 mL by inhalation three times daily as needed Ipratropium-Albuterol Discontinued 3 ML INHALATION 3 TIMES DAILY NEEDED July 27, 2019 4:43pm November 08, 2019 11:40am Start: 06-01-2016 IPRATROPIUM-AL BUTEROL 0.5-2.5 (3) MG/3ML SOLN INH four times a day as needed IPRATROPIUM-ALBUTEROL [id number] July Noble LPN ALPRAZolam 0.25 mg oral tabl et (20 sources) Benzodiazepine Start: 12-18-2023 End: 04-18-2025 Start: 03-07-2021 End: 08-13-2023 Start: 03-07-2021 End: 08-13-2023 Start: 09-20-2019 End: 03-07-2021 Start: 09-20-2019 End: 11-17-2019 take 0.5 mg by mouth twice daily Alprazolam Discontinued 0.5 MG PO TWICE A DAY October 24, 2019 9:35am November 17, 2019 12:56pm Start: 08-25-2016 End: 09-20-2019 Start: 06-01-2016 End: 07-25-2019 take 1 mg by mouth three times daily as needed Alprazolam Discontinued 1 MG PO 3 TIMES DAILY NEEDED August 25, 2016 12:00am July 25, 2019 2:06pm End: 01-10-2024 take 1 tablet by mouth three times daily as needed ALPRAZolam (XANAX) 0.5 mg tablet Indications: Bloating , Epigastric pain , Diarrhea, unspecified type Take 0.5 mg by mouth three times daily as needed. 0 01/10/2024 Discontinued (Course of therapy completed) aspirin 81 mg delayed releas e oral tablet (20 sources) Platelet Aggregation Inhibitor, Nonsteroidal Anti-inflammatory Drug Start: 12-29-2018 End: 04-20-2019 atorvastatin 80 mg oral tablet (20 sources) HMG-CoA Reductase Inhibitor Start: 12-29-2018 End: 01-26-2023 Start: 06-01-2016 End: 07-31-2016 take 1 tablet by mouth once daily LIPITOR 10 MG TABS One tablet by mouth daily ATORVASTATIN CALCIUM [id number] Cheyenne Singh STRESS TEST TECHNICIAN azaTHIOprine 50 mg oral tablet (4 sources) [place]ine Antimetabolite Start: 06-01-2016 take 3 tablets by mouth once daily AZATHIOPRINE 50 MG TABS Three tablets by mouth daily AZATHIOPRINE [id number] July Noble STRESS TEST TECHNICIAN End: 01-10-2024 take 2 tablets by mouth once daily azaTHIOprine (IMURAN) 50 mg tablet Indications: Bloating , Epigastric pain , Diarrhea, unspecified type Take 100 mg by mouth once daily. 0 01/10/2024 Discontinued (Course of therapy completed) azithromycin 250 mg oral tab let (20 sources) Macrolide Antimicrobial Start: 05-25-2023 End: 05-28-2023 Start: 10-23-2021 End: 10-28-2021 Start: 06-19-2020 End: 07-12-2020 Start: 10-23-2019 End: 12-01-2019 Start: 08-19-2016 End: 08-24-2016 ZITHROMAX 250 MG TABS 2 tabs po x 1 day, 1 tab po x 4 days AZITHROMYCIN [id number] Michelle Givens CNP BD single use swab (13 sources) Start: 11-20-2019 End: 11-22-2019 BD single use swab Discontin ued November 20, 2019 9:23am November 22, 2019 9:23am use to check blood sugar 3 times daily Start: 11-20-2019 End: 11-22-2019 BD single use swab Discontin ued November 19, 2019 11:00pm November 22, 2019 8:23am use to check blood sugar 3 times daily Start: 11-20-2019 End: 11-22-2019 BD single use swab Discontin ued November 20, 2019 12:00am November 22, 2019 9:23am use to check blood sugar 3 times daily benzonatate 100 mg oral caps ule (20 sources) Non-narcotic Antitussive Start: 06-19-2020 End: 07-12-2020 Budesonide-Formoterol (20 sources) Corticosteroid, beta2-Adrenergic Agonist Start: 10-15-2022 End: 02-25-2023 Start: 10-15-2022 busPIRone hydrochloride 10 m g oral tablet (20 sources) Start: 01-13-2024 End: 04-25-2024 Start: 12-23-2023 take 1 tablet by dylon th twice daily busPIRone (BUSPAR) 7.5 mg tablet Take 7.5 mg by mouth two times a day. 0 12/23/2023 Active Start: 07-23-2023 End: 01-13-2024 Start: 08-10-2021 End: 08-12-2021 calcipotriene 0.05 mg/ml top ical cream (20 sources) Vitamin D Analog Start: 11-13-2021 End: 11-26-2021 Start: 11-13-2021 End: 11-26-2021 Start: 11-13-2021 End: 11-26-2021 Calcipotriene Discontinued 1 APPLIC TOPICAL DAILY 120 November 14, 2021 3:10pm November 26, 2021 12:52pm rub in gently and completely Start: 03-06-2021 End: 03-07-2021 Start: 03-06-2021 End: 03-07-2021 Start: 03-06-2021 End: 03-07-2021 Calcipotriene Discontinued 1 APPLIC TOPICAL DAILY 120 March 05, 2021 11:00pm March 07, 2021 2:36pm rub in gently and completely cefdinir 300 mg oral capsule (20 sources) Cephalosporin Antibacterial Start: 08-26-2023 End: 12-17-2023 Start: 08-17-2022 End: 09-03-2022 Start: 10-13-2021 End: 11-10-2021 Start: 05-10-2021 End: 05-19-2021 cefditoren pivoxil 400 mg oral tablet (17 sources) Cephalosporin Antibacterial Start: 07-23-2021 End: 07-23-2021 cefpodoxime 200 mg oral tablet (20 sources) Cephalosporin Antibacterial Start: 07-23-2021 End: 08-10-2021 celecoxib 200 mg oral capsule (6 sources) Nonsteroidal Anti-inflammatory Drug Start: 06-01-2016 End: 07-31-2016 take 1 tablet by mouth once daily CELEBREX 200 MG CAPS One tablet by mouth daily CELECOXIB [id number] Cheyenne Singh LPN cephalexin 500 mg oral capsule (20 sources) Cephalosporin Antibacterial Start: 03-30-2025 End: 04-06-2025 Start: 12-28-2023 End: 01-13-2024 Start: 01-28-2023 End: 02-17-2023 Start: 01-28-2023 End: 02-17-2023 ciprofloxacin 500 mg oral tablet (3 sources) Quinolone Antimicrobial Start: 09-24-2016 take 1 tablet by mouth twice daily CIPROFLOXACIN HCL 500 MG TABS One tablet by mouth twice daily CIPROFLOXACIN HCL [id number] Haroon Nuno citalopram 40 mg oral tablet (20 sources) Serotonin Reuptake Inhibitor Start: 12-12-2020 End: 12-27-2020 take 20 mg by mouth at bedtime Citalopram Discontinued 20 MG PO AT BEDTIME 90 December 12, 2020 12:46pm December 27, 2020 10:12am Start: 11-21-2019 End: 01-10-2024 Start: 07-04-2014 End: 01-10-2024 clopidogrel 75 mg oral tablet (20 sources) P2Y12 Platelet Inhibitor Start: 12-29-2018 End: 01-26-2023 COMPOUNDED PRESCRIPTION (1 source) End: 01-10-2024 COMPOUNDED [...] three times daily as needed CYCLOBENZAPRINE HCL [id number] July Esquivel Aide DE LEON dexamethasone 6 mg oral tablet (20 sources) Corticosteroid Start: 08-10-2021 End: 08-12-2021 dicyclomine hydrochloride 20 mg oral tablet (1 source) Anticholinergic Start: 05-04-2016 End: 01-10-2024 take 1 tablet by mouth three times daily before mealtime dicyclomine (BENTYL) 20 mg tablet Take 1 tablet by mouth three times daily before meals. 90 tablet 3 05/04/2016 01/10/2024 Discontinued (Course of therapy completed) docusate sodium 50 mg / sennosides, [facility] 8.6 mg oral tablet (20 sources) Start: 12-18-2023 End: 07-03-2024 take 1 tablet by mouth once tara y senna-docusate (SENNA PLUS) 8.6-50 mg per tablet Take 1 tablet by mouth once daily. 0 Active doxycycline hyclate 100 mg o ral tablet (20 sources) Tetracycline-class Drug Start: 03-27-2025 End: 04-27-2025 Start: 08-14-2024 End: 10-19-2024 Start: 05-30-2023 End: 06-04-2023 Start: 09-12-2020 End: 09-23-2020 Start: 04-12-2020 End: 05-09-2020 Start: 10-16-2019 End: 10-23-2019 Start: 09-20-2019 End: 10-16-2019 ertapenem 1000 mg injection (4 sources) Penem Antibacterial Start: 01-17-2024 End: 01-17-2024 Fluad Quad (65yr up)(PF) 60 mcg (15 mcg x 4)/0.5mL IM syringe (flu vac (8 sources) Start: 04-29-2021 End: 04-29-2021 Fluad Quad (65yr up)(PF) 60 mcg (15 mcg x 4)/0.5mL IM syringe (flu vac Discontinued 60 MCG IM ONCE 0.5 April 29, 2021 1:44pm April 29, 2021 2:19pm FLUTICASONE-SALM ETEROL (6 sources) Corticosteroid, beta2-Adrenergic Agonist Start: 06-01-2016 take 2 puff(s) by inhalation twice daily ADVAIR HFA 230-21 MCG/ACT AERO INH 2 puffs twice daily FLUTICASONE-SALMET IZZY [id number] July Noble LPN Start: 06-01-2016 End: 07-31-2016 take 2 puff(s) by inhalation twice daily ADVAIR HFA 230-21 MCG/ACT AERO INH 2 puffs twice daily FLUTICASONE-SALMETEROL [id number] Cheyenne Singh STRESS TEST TECHNICIAN Start: 06-01-2016 End: 07-31-2016 take 2 puff(s) by inhalation twice daily ADVAIR HFA 230-21 MCG/ACT AERO INH 2 puffs twice daily FLUTICASONE-SALMETEROL [id number] July Noble LPN 30 actuat fluticasone furoat e 0.1 mg/actuat / vilanterol 0.025 mg/actuat dry powder inhaler (20 sources) Corticosteroid, beta2-Adrenergic Agonist Start: 10-15-2022 End: 10-15-2022 Start: 10-15-2022 End: 10-15-2022 guaiFENesin 40 mg/ml oral so lution (20 sources) Start: 07-23-2023 End: 12-18-2023 Start: 07-23-2023 HALOBETASOL PROPIONATE (6 sources) Corticosteroid Start: 06-01-2016 ULTRAVATE 0.05 % OINT Apply twice daily as needed HALOBETASOL PROPIONATE [id number] July Noble STRESS TEST TECHNICIAN Start: 06-01-2016 End: 07-31-2016 ULTRAVATE 0.05 % OINT Apply twice daily as needed HALOBETASOL PROPIONATE [id number] Cheyenne Moise Singh STRESS TEST TECHNICIAN Start: 06-01-2016 End: 07-31-2016 ULTRAVATE 0.05 % OINT Apply twice daily as needed HALOBETASOL PROPIONATE [id number] July Esquivel Aide STRESS TEST TECHNICIAN insulin detemir 100 unt/ml i njectable solution (20 sources) Insulin Analog Start: 02-08-2020 End: 05-17-2020 Start: 02-08-2020 End: 05-17-2020 Start: 02-08-2020 End: 05-17-2020 Insulin Detemir U-100 (Levem ir U-100 Insulin) 100 unit/mL solution Discontinued 52 UNIT SC AT BEDTIME February 07, 2020 11:00pm May 17, 2020 12:45pm 3 ml insulin glargine 100 unt/ml pen injector (20 sources) Insulin Analog Start: 10-12-2021 Insulin Glargi ne (Basaglar Kwikpen U-100 Insulin) 100 unit/mL (3 mL) insulin pen Active 36 UNIT SC DAILY October 12, 2021 12:23am daily at bedtime Start: 08-19-2021 End: 10-12-2021 Insulin Glargine (Basaglar Kwikpen U-100 Insulin) 100 unit/mL (3 mL) insulin pen Discontinued 46 UNIT SC DAILY 41.4 90 August 19, 2021 3:07pm October 12, 2021 12:23am Start: 08-10-2021 End: 08-19-2021 Insulin Glargine (Basaglar Kwikpen U-100 Insulin) 100 unit/mL (3 mL) insulin pen Discontinued 40 UNIT SC DAILY 32.4 90 August 10, 2021 9:23am August 19, 2021 3:08pm Start: 03-10-2021 End: 08-10-2021 Insulin Glargine (Basaglar Kwikpen U-100 Insulin) 100 unit/mL (3 mL) insulin pen Discontinued 36 UNIT SC DAILY 32.4 90 March 10, 2021 7:45am August 10, 2021 9:23am Start: 08-20-2020 End: 03-10-2021 Insulin Glargine (Basaglar Kwikpen U-100 Insulin) 100 unit/mL (3 mL) insulin pen Discontinued 34 UNIT SC DAILY 42 January 22, 2021 11:00pm March 10, 2021 7:47am Start: 07-26-2020 End: 08-20-2020 Insulin Glargine (Lantus Aurelia ostar U-100 Insulin) 100 unit/mL (3 mL) insulin pen Discontinued 44 UNIT SC EVERY EVENING July 26, 2020 4:18pm August 20, 2020 11:56am Start: 05-17-2020 End: 12-18-2023 Start: 05-17-2020 End: 08-13-2023 Start: 05-17-2020 End: 07-26-2020 Insulin Glargine (Lantus Aurelia ostar U-100 Insulin) 100 unit/mL (3 mL) insulin pen Discontinued 46 UNIT SC EVERY EVENING May 16, 2020 11:00pm July 26, 2020 4:18pm Start: 02-02-2020 End: 02-08-2020 Insulin Glargine Discontinue d 50 UNIT SC AT BEDTIME February 02, 2020 10:52am February 08, 2020 12:09pm Start: 01-30-2020 End: 02-02-2020 Insulin Glargine Discontinue d 46 UNIT SC AT BEDTIME January 30, 2020 2:11pm February 02, 2020 10:52am Start: 12-01-2019 End: 02-08-2020 Start: 12-01-2019 End: 02-08-2020 Start: 09-20-2019 End: 11-08-2019 Insulin Glargine Discontinue d 46 UNIT SC AT BEDTIME 41.4 90 November 01, 2019 10:05am November 08, 2019 11:40am Start: 06-18-2019 End: 11-08-2019 Start: 06-18-2019 End: 11-08-2019 Start: 06-18-2019 End: 09-20-2019 Insulin Glargine Discontinue d 40 UNITS SC AT BEDTIME June 18, 2019 12:00am September 20, 2019 11:51am Start: 08-25-2016 End: 06-18-2019 Start: 08-25-2016 End: 06-18-2019 Start: 08-25-2016 End: 06-18-2019 inject 32 [IU] by subcutaneous injection at bedtime Insulin Glargine Discontinued 32 UNIT SQ AT BEDTIME August 25, 2016 12:00am June 18, 2019 9:49am Start: 06-01-2016 LANTUS 100 UNI T/ML SOLN as directed INSULIN GLARGINE [id number] July Sierra Noble STRESS TEST TECHNICIAN Start: 06-01-2016 LANTUS 100 UNI T/ML SOLN as directed INSULIN GLARGINE [id number] July Sierra Noble STRESS TEST TECHNICIAN insulin glargine (LANTUS) 100 UNIT/ML injection vial Inject 30 Units into the skin nightly 0 Active 200 actuat ipratropium bromi de 0.017 mg/actuat metered dose inhaler (20 sources) Anticholinergic Start: 11-29-2019 End: 11-29-2019 Start: 11-29-2019 End: 11-29-2019 Start: 11-29-2019 End: 11-29-2019 Ipratropium [place] (Atroven t Hfa) 17 mcg/actuation HFA aerosol inhaler Discontinued 1 INH INHALATION TWICE A DAY November 28, 2019 11:00pm November 29, 2019 10:02am Start: 09-28-2019 End: 11-08-2019 Start: 09-28-2019 End: 11-08-2019 Start: 09-28-2019 End: 11-08-2019 take 1 puff(s) by inhalation four times daily Ipratropium [place] (Atrovent Hfa) 17 mcg/actuation HFA aerosol inhaler Discontinued 2 PUFF INHALATION .QID 12.9 November 01, 2019 10:05am November 08, 2019 11:40am Start: 04-15-2019 End: 09-20-2019 Start: 04-15-2019 End: 09-20-2019 Start: 04-15-2019 End: 09-20-2019 take 1 puff(s) by inhalation every four hours Ipratropium [place] (Atrovent Hfa) 17 mcg/actuation HFA aerosol inhaler Discontinued 2 PUFF INHALATION Q4H July 27, 2019 4:43pm September 20, 2019 11:18am Start: 06-01-2016 End: 08-19-2016 IPRATROPIUM BROMIDE 0.03 % S OLN 1-2 sprays nasally q6h as needed IPRATROPIUM BROMIDE [id number] July Sierra Noble STRESS TEST TECHNICIAN Start: 06-01-2016 take 2 puff(s) by in halation every four hours as needed ATROVENT HFA 17 MCG/ACT AERS INH 2 puffs q4h as needed IPRATROPIUM BROMIDE HFA [id number] July Kirbyin Noble STRESS TEST TECHNICIAN Start: 06-01-2016 take 2 puff(s) by in halation every four hours as needed ATROVENT HFA 17 MCG/ACT AERS INH 2 puffs q4h as needed IPRATROPIUM BROMIDE HFA [id number] July Goodwinach STRESS TEST TECHNICIAN Start: 05-23-2013 End: 07-04-2014 Start: 05-23-2013 End: 07-04-2014 Start: 05-23-2013 End: 07-04-2014 take 1 puff(s) by inhalation four times daily Ipratropium [place] (Atrovent Inhaler) 12.9 GM inhaler Discontinued 2 PUFF INHALATION 4 TIMES DAILY May 22, 2013 11:00pm July 04, 2014 3:24pm 24 hr isosorbide mononitrate 60 mg extended release oral tablet (20 sources) Nitrate Vasodilator Start: 06-20-2021 End: 12-26-2022 Start: 05-28-2021 End: 06-20-2021 IV IG GRAMS (3 sources) Start: 06-01-2016 IV IG GRAMS mo nthly IV IG GRAMS July Sierra Noble LPN lactulose 667 mg/ml oral solution (20 sources) Osmotic Laxative Start: 08-24-2024 End: 10-19-2024 Start: 06-01-2024 End: 07-03-2024 levoFLOXacin 500 mg oral tablet (6 sources) Quinolone Antimicrobial Start: 08-19-2016 End: 08-19-2016 take 1 tablet by mouth once daily LEVAQUIN 500 MG TABS One tablet PO daily LEVOFLOXACIN [id number] Michelle Givens CNP LEVOTHYROXINE SODIUM (5 sources) l-Thyroxine Start: 06-01-2016 End: 01-10-2024 take 1 tablet by mouth once daily SYNTHROID 75 MCG TABS One tablet by mouth daily LEVOTHYROXINE SODIUM [id number] July Noble LPN Start: 06-01-2016 take 1 tablet by dylon th once daily SYNTHROID 75 MCG TABS One tablet by mouth daily LEVOTHYROXINE SODIUM [id number] July Esquivel Aide DE LEON loratadine 10 mg oral tablet (20 sources) Start: 11-25-2020 End: 12-30-2020 24 hr metFORMIN hydrochlorid e 500 mg extended release oral tablet (20 sources) Biguanide Start: 12-01-2019 End: 06-10-2021 Start: 12-01-2019 End: 06-10-2021 take 2 tablets by mouth once daily in the evening metFORMIN (GLUCOPHAGE-XR) 500 MG extended release tablet take 2 tablets by mouth every evening 0 08/08/2020 Active Start: 12-01-2019 End: 02-12-2020 take 500 mg by mouth once daily in the evening Metformin Discontinued 500 MG PO EVERY EVENING December 01, 2019 10:38am February 12, 2020 4:12pm Start: 07-25-2019 End: 09-20-2019 Start: 07-25-2019 End: 09-20-2019 take 500 mg by mouth once daily in the evening Metformin Discontinued 500 MG PO EVERY EVENING July 25, 2019 12:00am September 20, 2019 11:18am metoprolol tartrate 25 mg or al tablet (20 sources) beta-Adrenergic Bernarda Start: 12-01-2019 End: 01-26-2023 Start: 12-01-2019 End: 01-26-2023 Start: 12-01-2019 End: 05-04-2022 take 12.5 mg by mouth twice daily Metoprolol Tartrate Discontinued 12.5 MG PO TWICE A DAY April 25, 2021 2:35pm May 04, 2022 7:29am Start: 12-29-2018 End: 11-08-2019 Start: 12-29-2018 End: 11-08-2019 take 12.5 mg by mouth twice daily Metoprolol Tartrate Discontinued 12.5 MG PO TWICE A DAY April 20, 2019 1:15pm November 08, 2019 11:40am montelukast 10 mg oral table t (20 sources) Leukotriene Receptor Antagonist Start: 12-15-2023 End: 08-24-2024 Start: 10-22-2021 take 1 tablet by dylon th once daily Montelukast (Singulair) 10 mg Tablet Active 10 MG PO DAILY October 22, 2021 5:12pm nitroglycerin 0.4 mg sublingual tablet (20 sources) Nitrate Vasodilator Start: 08-14-2020 nitroGLYCE RIN (NITROSTAT) 0.4 MG SL tablet Start: 12-01-2019 End: 12-26-2022 Start: 12-01-2019 End: 08-13-2020 Nitroglycerin Discontinued 0 .4 MG SL ONCE November 30, 2019 11:00pm August 13, 2020 11:29am as a single dose; administer 5-10 minutes before situation known to precipitate angina attack omeprazole 20 mg delayed rel ease oral capsule (20 sources) Proton Pump Inhibitor Start: 12-01-2019 End: 01-17-2020 Start: 09-20-2019 End: 11-08-2019 Start: 10-23-2016 End: 07-25-2019 pantoprazole 40 mg delayed r elease oral tablet (20 sources) Proton Pump Inhibitor Start: 10-28-2021 End: 05-20-2023 Start: 10-28-2021 End: 05-20-2023 Start: 01-17-2020 End: 07-10-2021 Start: 01-17-2020 End: 07-10-2021 Start: 07-25-2019 End: 09-20-2019 Start: 07-25-2019 End: 09-20-2019 risperiDONE 1 mg oral tablet (20 sources) Atypical Antipsychotic Start: 01-17-2020 End: 09-21-2020 take 1.5 mg by mouth at bedtime Risperidone Discontinued 1.5 MG PO AT BEDTIME 135 90 January 17, 2020 5:54pm September 21, 2020 3:00pm Start: 01-17-2020 End: 01-17-2020 Start: 01-17-2020 End: 01-17-2020 Start: 01-17-2020 End: 01-17-2020 take 2 mg by mouth at bedtime Risperidone Discontinued 2 MG PO AT BEDTIME January 17, 2020 5:48pm January 17, 2020 5:55pm Start: 05-23-2013 End: 08-13-2023 End: 01-10-2024 take 1 tablet by mouth [...] tablet by mouth daily as needed SIMETHICONE [id number] July Noble STRESS TEST TECHNICIAN sulfamethoxazole 800 mg / trimethoprim 160 mg oral tablet (20 sources) Dihydrofolate Reductase Inhibitor Antibacterial, Sulfonamide Antimicrobial Start: 12-08-2023 End: 01-13-2024 Start: 12-08-2023 Tiotropium [place] (20 sources) Anticholinergic Start: 10-16-2019 End: 11-08-2019 take 1 puff(s) by inhalation once daily in the morning Tiotropium [place] (Spiriva Respimat) 2.5 mcg/actuation mist Discontinued 2 PUFF INHALATION EVERY MORNING October 16, 2019 4:57pm November 08, 2019 12:40pm Start: 10-16-2019 End: 11-08-2019 Start: 10-16-2019 End: 11-08-2019 take 1 puff(s) by inhalation once daily in the morning Tiotropium [place] (Spiriva Respimat) 2.5 mcg/actuation mist Discontinued 2 PUFF INHALATION EVERY MORNING October 15, 2019 11:00pm November 08, 2019 11:40am Start: 10-16-2019 End: 11-08-2019 take 1 puff(s) by inhalation once daily in the morning Tiotropium [place] (Spiriva Respimat) 2.5 mcg/actuation mist Discontinued 2 PUFF INHALATION EVERY MORNING October 16, 2019 12:00am November 08, 2019 12:40pm traZODone hydrochloride 50 m g oral tablet (20 sources) Serotonin Reuptake Inhibitor Start: 08-22-2023 End: 12-04-2024 trolamine salicylate 100 mg/ ml topical cream (19 sources) Start: 12-18-2023 End: 07-03-2024 30 actuat umeclidinium 0.062 5 mg/actuat dry powder inhaler (20 sources) Anticholinergic Start: 12-20-2019 End: 04-12-2020 Start: 12-20-2019 End: 04-12-2020 Start: 12-20-2019 End: 04-12-2020 Umeclidinium Discontinued 1 INH INHALATION Q24H December 19, 2019 11:00pm April 12, 2020 12:07pm 7 actuat umeclidinium 0.0625 mg/actuat / vilanterol 0.025 mg/actuat dry powder inhaler (20 sources) Anticholinergic, beta2-Adrenergic Agonist Start: 04-12-2020 End: 05-09-2020 Start: 04-12-2020 End: 05-09-2020 Start: 04-12-2020 End: 05-09-2020 Umeclidinium-Vilanterol (Ano ro Ellipta) 62.5-25 mcg/actuation blister with device Discontinued 1 INH INHALATION daily 60 April 11, 2020 11:00pm May 09, 2020 1:56pm Problems Active Problems Problem Classification Problem Date Documented Da te Episodic/Chronic Abdominal pain (20 sources) Epigastric pain; Translations: [Epigastric pain] 04-16-2023 Episodic Acute bronchitis (20 sources) Acute bronchitis; Translations: [Acute bronchitis, unspecified] Episodic Allergic reactions (20 sources) Anaphylaxis; Translations: [Anaphylactic shock, unspecified, initial encounter] 05-30-2023 Episodic Anxiety disorders (20 sources) Generalized anxiety disorder; Translations: [Generalized anxiety disorder] Chronic Cardiac arrest and ventricular fibrillation (20 sources) Electromechanical dissociation; Translations: [Cardiac arrest, cause unspecified] 05-30-2023 Chronic Cardiac dysrhythmias (20 sources) Atrial fibrillation with rapid ventricular response; Translations: [Unspecified atrial fibrillation] Onset: 5 05-30-2023 Chronic Cardiac dysrhythmias (20 sources) Palpitations; Translations: [Palpitations] Episodic Chronic obstructive pulmonary disease and bronchiectasis (20 sources) Asthma-chronic obstructive pulmonary disease overlap syndrome; Translations: [Chronic obstructive pulmonary disease, unspecified] Onset: Chronic Conditions associated with dizziness or vertigo (20 sources) Dizziness; Translations: [Dizziness and giddiness] 01-02-2019 Episodic Congestive heart failure; nonhypertensive (20 sources) Congestive heart failure; Translations: [Heart failure, unspecified] Chronic Coronary atherosclerosis and other heart disease (20 sources) Coronary atherosclerosis; Translations: [Atherosclerotic heart disease of [place] coronary artery without angina pectoris] Chronic Deficiency and other anemia (19 sources) Anemia of chronic disease; Translations: [Anemia in other chronic diseases classified elsewhere] 07-12-2024 Chronic Deficiency and other anemia (20 sources) Anemia; Translations: [Anemia, unspecified] 03-15-2022 Episodic Deficiency and other anemia (9 sources) Anemia, unspecified; Translations: [Anemia, unspecified] Onset: 5 Episodic Diabetes mellitus with complications (20 sources) Hyperglycemia due to diabetes mellitus; Translations: [Type 2 diabetes mellitus with hyperglycemia] Onset: 5 06-22-2020 Chronic Diabetes mellitus without complication (20 sources) Type 2 diabetes mellitus; Translations: [Type 2 diabetes mellitus without complications] Onset: 7 10-08-2016 Chronic Diseases of white blood cells (19 sources) Leukocytosis; Translations: [Elevated white blood cell count, unspecified] 07-12-2024 Chronic Disorders of lipid metabolism (20 sources) Hyperlipidemia; Translations: [Hyperlipidemia, unspecified] Onset: 5 Chronic Esophageal disorders (20 sources) De [place] Vega's esophagus; Translations: [Gastroesophageal reflux disease] Onset: 7 10-28-2016 Chronic Essential hypertension (20 sources) Hypertensive disorder; Translations: [Essential (primary) hypertension] Chronic Fluid and electrolyte disorders (20 sources) Hyponatremia; Translations: [Hypo-osmolality and hyponatremia] 03-15-2022 Episodic Headache; including migraine (20 sources) Headache; Translations: [Headache] 08-29-2020 Episodic Immunizations and screening for infectious disease (20 sources) Needs influenza immunization; Translations: [Encounter for immunization] Episodic Inflammatory diseases of female pelvic organs (20 sources) Abscess of vulva; Translations: [Abscess of vulva] Onset: Episodic Malaise and fatigue (20 sources) Fatigue; Translations: [Other fatigue] Episodic Mood disorders (20 sources) Depressive disorder; Translations: [Depression] 07-15-2020 Chronic Mycoses (2 sources) Candidiasis of skin; Translations: [Candidiasis of skin and nail] 05-23-2025 Episodic Nausea and vomiting (20 sources) Nausea, vomiting and diarrhea; Translations: [Nausea with vomiting, unspecified] 12-08-2023 Episodic Osteoarthritis (1 source) Unspecified osteoarthritis, unspecified site; Translations: [Unspecified osteoarthritis, unspecified site] Onset: Chronic Other and unspecified benign neoplasm (20 sources) Benign neoplasm of other specified sites; Translations: [Dermoid cyst of lower extremity] 03-10-2023 Episodic Other circulatory disease (6 sources) Other specified symptoms and signs involving the circulatory and respiratory systems; Translations: [Other symptoms involving respiratory system and chest] 08-13-2022 Episodic Other circulatory disease (20 sources) H/O: heart disorder; Translations: [Personal history of other diseases of the circulatory system] 05-30-2023 Episodic Other circulatory disease (7 sources) Personal history of other diseases of the circulatory system; Translations: [Personal history of other diseases of circulatory system] 05-30-2023 Episodic Other connective tissue disease (2 sources) Other muscle spasm; Translations: [Spasm of muscle] Episodic Other connective tissue disease (19 sources) Synovial cyst of left popliteal space; Translations: [Synovial cyst of popliteal space [Desai], left knee] 03-10-2023 Episodic Other connective tissue disease (20 sources) Synovial cyst of popliteal space [Desai], left knee; Translations: [Synovial cyst of popliteal space] 03-10-2023 Episodic Other connective tissue disease (19 sources) Pain in left lower leg; Translations: [Pain in limb] 03-10-2023 Episodic Other connective tissue disease (20 sources) Muscle pain; Translations: [Myalgia, other site] 09-01-2024 Episodic Other connective tissue disease (14 sources) Swelling of upper limb; Translations: [Other specified soft tissue disorders] 12-24-2024 Episodic Other connective tissue disease (4 sources) Swelling of left upper limb; Translations: [Other specified soft tissue disorders] 01-01-2025 Episodic Other connective tissue disease (1 source) Other specified soft tissue disorders; Translations: [Other specified soft tissue disorders] Onset: Episodic Other female genital disorders (9 sources) Pruritus of vagina; Translations: [Other specified noninflammatory disorders of vagina] 04-12-2025 Episodic Other female genital disorders (1 source) Other specified noninflammatory disorders of vagina; Translations: [Other specified noninflammatory disorders of vagina] Onset: Episodic Other gastrointestinal disorders (20 sources) Irritable bowel syndrome characterized by constipation; Translations: [Irritable bowel syndrome with constipation] 10-19-2024 Chronic Other gastrointestinal disorders (20 sources) Abdominal bloating; Translations: [Abdominal distension (gaseous)] Onset: 7 10-08-2016 Episodic Other gastrointestinal disorders (20 sources) Constipation; Translations: [Constipation, unspecified] 10-21-2021 Episodic Other gastrointestinal disorders (1 source) Dysphagia; Translations: [Dysphagia, unspecified] 01-10-2024 Episodic Other gastrointestinal disorders (19 sources) Chronic constipation; Translations: [Other constipation] 06-01-2024 Episodic Other gastrointestinal disorders (19 sources) Acute constipation; Translations: [Constipation, unspecified] 06-13-2024 Episodic Other hematologic conditions (1 source) Protein level - finding; Translations: [Other specified abnormalities of plasma proteins] Episodic Other hematologic conditions (3 sources) Other specified abnormalities of plasma proteins; Translations: [Other abnormal blood chemistry] Episodic Other hematologic conditions (20 sources) Raised cardiac enzyme or marker; Translations: [Other specified abnormalities of plasma proteins] 08-11-2021 Episodic Other inflammatory condition of skin (20 sources) Psoriasis; Translations: [Psoriasis, unspecified] 03-10-2021 Chronic Other lower respiratory disease (20 sources) Dyspnea; Translations: [Shortness of breath] Onset: 6 07-31-2016 Episodic Other lower respiratory disease (20 sources) Hemoptysis; Translations: [Hemoptysis] 09-21-2020 Episodic Other lower respiratory disease (20 sources) Acute cardiac pulmonary edema ; Translations: [Acute pulmonary edema] 08-11-2021 Episodic Other lower respiratory disease (20 sources) Wheezing; Translations: [Wheezing] 06-25-2021 Episodic Other lower respiratory disease (3 sources) Acute pulmonary edema; Translations: [Acute edema of lung, unspecified] Episodic Other lower respiratory disease (13 sources) Shortness of breath; Translations: [Shortness of breath] Onset: Episodic Other lower respiratory disease (20 sources) History of chronic obstructive airway disease; Translations: [Personal history of other diseases of the respiratory system] 03-23-2022 Episodic Other lower respiratory disease (20 sources) Cough; Translations: [Cough] 01-22-2023 Episodic Other lower respiratory disease (19 sources) Viral respiratory infection; Translations: [Other specified respiratory disorders] 08-11-2024 Episodic Other nervous system disorders (20 sources) Muscular dystrophy; Translations: [Muscular dystrophy, unspecified] 01-01-2019 Chronic Other nervous system disorders (5 sources) Muscular dystrophy, unspecified; 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 Other non-traumatic joint disorders (1 source) Pain in elbow; Translations: [Right elbow pain] Episodic Other nutritional; endocrine; and metabolic disorders (3 sources) Overweight; Translations: [Overweight] Onset: 10-19-2016 Chronic Other nutritional; endocrine; and metabolic disorders (20 sources) Obesity; Translations: [Obesity, unspecified] 12-11-2020 Chronic Other nutritional; endocrine; and metabolic disorders (18 sources) Obesity, unspecified; Translations: [Obesity, unspecified] Chronic Other nutritional; endocrine; and metabolic disorders (20 sources) H/O: diabetes mellitus; Translations: [Personal history of other endocrine, nutritional and metabolic disease] 05-30-2023 Episodic Other skin disorders (20 sources) Neck swelling; Translations: [Localized swelling, mass and lump, neck] 01-05-2025 Episodic Other upper respiratory disease (1 source) Hoarse; Translations: [Dysphonia] 01-10-2024 Episodic Other upper respiratory infections (20 sources) Sinusitis; Translations: [Chronic sinusitis, unspecified] 08-14-2024 Chronic Other upper respiratory infections (20 sources) Sore throat symptom; Translations: [Acute pharyngitis, unspecified] 08-13-2022 Episodic Pleurisy; pneumothorax; pulmonary collapse (20 sources) Pleural effusion; Translations: [Pleural effusion, not elsewhere classified] 09-21-2020 Episodic Pneumonia (except that caused by tuberculosis or sexually transmitted disease) (20 sources) Pneumonia; Translations: [Pneumonia, unspecified organism] Onset: Episodic Residual codes; unclassified (20 sources) History of chest pain; Translations: [Personal history of other specified conditions] 09-23-2022 Episodic Residual codes; unclassified (20 sources) Other specified health status; Translations: [Failure of outpatient treatment] 05-28-2023 Episodic Residual codes; unclassified (20 sources) Endotracheal tube present; Translations: [Presence of other specified devices] 05-30-2023 Episodic Residual codes; unclassified (2 sources) Presence of other specified devices; Translations: [Other specified conditions influencing health status] 05-30-2023 Episodic Residual codes; unclassified (20 sources) Insomnia; Translations: [Insomnia, unspecified] 01-13-2024 Episodic Respiratory failure; insufficiency; arrest (adult) (20 sources) Oozat-sa-dmfniop respiratory failure; Translations: [Acute and chronic respiratory failure with hypoxia] Onset: Chronic Respiratory failure; insufficiency; arrest (adult) (20 sources) Acute respiratory failure; Translations: [Acute respiratory failure, unspecified whether with hypoxia or hypercapnia] Episodic Septicemia (except in labor) (20 sources) Sepsis; Translations: [Sepsis, unspecified organism] 05-09-2021 Episodic Sprains and strains (20 sources) Strain of muscle, fascia and tendon of right hip, initial encounter; Translations: [Sprains and strains of other specified sites of hip and thigh] Episodic Substance-related disorders (3 sources) Tobacco dependence syndrome; Translations: [Nicotine dependence, unspecified, uncomplicated] Onset: 6 07-31-2016 Chronic Substance-related disorders (20 sources) Smoker; Translations: [Nicotine dependence, unspecified, uncomplicated] Onset: 5 09-21-2020 Chronic Systemic lupus erythematosus and connective tissue disorders (20 sources) Dermatomyositis; Translations: [Dermatopolymyositis, unspecified, organ involvement unspecified] Onset: 6 07-31-2016 Chronic Thyroid disorders (20 sources) Hypothyroidism; Translations: [Hypothyroidism, unspecified] Onset: 5 Chronic Unclassified (5 sources) Supraclavicular lymphadenopathy Unclassified (1 source) Cough, unspecified; Translations: [Cough, unspecified] Onset: 5 Urinary tract infections (20 sources) Urinary tract infectious disease; Translations: [Urinary tract infection, site not specified] 12-08-2023 Episodic Viral infection (20 sources) Viral disease; Translations: [Viral infection, unspecified] 05-25-2023 Episodic Past or Other Problems Problem Classification Problem Date Documented Da te Episodic/Chronic Chronic obstructive pulmonary disease and bronchiectasis (3 sources) Bronchitis; Translations: [Bronchitis, not specified as acute or chronic] Onset: 08-19-2016 08-19-2016 Episodic Lymphadenitis (20 sources) Anterior cervical lymphadenopathy; Translations: [Localized enlarged lymph nodes] Onset: 03-08-2025 12-24-2024 Episodic Nonspecific chest pain (20 sources) Chest pain; Translations: [Chest pain, unspecified] Onset: 02-20-2025 07-14-2021 Episodic Other aftercare (1 source) 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; Translations: [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 (current) use of insulin] Onset: 12-04-2024 Episodic Other gastrointestinal disorders (13 sources) Constipation, unspecified; Translations: [Constipation, unspecified] Onset: 06-20-2024 Episodic Other lower respiratory disease (13 sources) Dyspnea, unspecified; Translations: [Other respiratory abnormalities] Onset: 01-05-2025 08-22-2023 Episodic Other non-traumatic joint disorders (20 sources) Pain in left knee; Translations: [Left knee pain] Onset: 03-06-2025 04-14-2023 Episodic Other nutritional; endocrine; and metabolic disorders (8 sources) Personal history of other endocrine, nutritional and metabolic disease; Translations: [Personal history of other endocrine, metabolic, and immunity disorders] Onset: 03-08-2025 05-30-2023 Episodic Other screening for suspected conditions (not mental disorders or infectious disease) (20 sources) Raised TSH level; Translations: [Other specified abnormal findings of blood chemistry] Onset: 02-12-2025 11-16-2022 Episodic Other skin disorders (1 source) Localized swelling, mass and lump, neck; Translations: [Localized swelling, mass and lump, neck] Onset: 03-08-2025 Episodic Residual codes; unclassified (1 source) Other general symptoms and signs; Translations: [Other general symptoms and signs] Onset: 10-28-2024 Episodic Spondylosis; intervertebral disc disorders; other back problems (20 sources) Backache; Translations: [Dorsalgia, unspecified] Onset: 03-08-2025 Episodic Results Test Name Value Interpretation Reference Range Facility [facility] 05-23-2025 [facility] Telephone (SPMIED) -------- JEANNA VARGAS ([id number]) 1950 F [place] Date Time Provider Department 05/23/25 KATIA GUPTA During your visit today, we recorded the following information about you: Ken Quach MA 05/23/2025 9:17 AM Signed Radiology report of Cervical Spine was received from [facility] Will be send to scanning Ken Quach MA Allergies As of Date: 05/23/2025 Noted Allergy Reaction OMEPRAZOLE 04/14/2016 12 - Shortness of Breath Comments: nervous AMOXICILLIN 04/14/2016 2 - Rash 4 - Hives CLONAZEPAM 01/10/2024 16 - Unknown CODEINE 04/14/2016 14 - Other: See Comments Comments: headache GABAPENTIN 01/10/2024 16 - Unknown HYDROCODONE 01/10/2024 16 - Unknown IODINATED CONTRAST MEDIA 01/10/2024 16 - Unknown LEVAQUIN (LEVOFLOXACIN) 04/14/2016 4 - Hives Comments: can take liquid if no red dye RANITIDINE 04/14/2016 4 - Hives Comments: due to the red dye RED DYE 04/14/2016 4 - Hives SUDAFED (PSEUDOEPHEDRINE) 04/14/2016 2 - Rash Date Reviewed: 05/16/2025 Reviewed by: Ken Quach MA - Fully Assessed Prescriptions as of 05/23/2025 - XANAX 0.25 mg tablet Take 0.25 mg by mouth at bedtime as needed for anxiety. - citalopram (CELEXA) 40 mg tablet Take 40 mg by mouth once daily. - LANTUS SOLOSTAR U-100 INSULIN 100 unit/mL (3 mL) Inject 30 Units subcutaneously daily at bedtime. - ipratropium-albuterol (DUONEB) 0.5 mg-3 mg(2.5 mg base)/3 mL nebu Inhale 3 mL as instructed every 6 hours as needed for wheezing/shortness of breath. - DERMACINRX LIDOCAN 5 % Apply 1 patch as directed once daily as needed. - linaclotide (LINZESS) 145 mcg capsule Take 145 mcg by mouth once daily. - lactulose (DUPHALAC, CONSTULOSE) 10 g/15 mL soln Take 20 mL by mouth two times a day as needed. - polyethylene glycol 3350 (MIRALAX) 17 gram/dose powder Take 17 g by mouth once daily. Dissolve dose in 4 - 8 ounces of liquid and take as directed. - trolamine salicylate (ASPERCREME) 10 % cream Apply to affected area two times a day. - mag hydrox/aluminum hyd/simeth (ANTACID SUSPENSION ORAL) Take 30 mL by mouth four times a day as needed. - carboxymethylcellulose sodium (ARTIFICIAL TEARS, CMC, OPHTHALMIC) Use 1 drop in eyes four times a day as needed (both eyes). - losartan (COZAAR) 50 mg tablet Take 50 mg by mouth once daily. - metoprolol tartrate, short acting, (LOPRESSOR) 25 mg tablet Take 12.5 mg by mouth two times a day. - nitroglycerin sublingual (NITROQUICK) 0.4 mg SL tablet Dissolve 0.4 mg under the tongue every 5 minutes as needed for chest pain. - montelukast (SINGULAIR) 10 mg tablet Take 10 mg by mouth daily at bedtime. - ondansetron (ZOFRAN) 4 mg tablet Take 4 mg by mouth every 6 hours as needed for nausea/vomiting. - pantoprazole DR (PROTONIX) 40 mg tablet Take 40 mg by mouth two times a day. - potassium chloride ER (KLOR-CON) 20 mEq tablet Take 20 mEq by mouth two times a day. - predniSONE (DELTASONE) 10 mg tablet Take 10 mg by mouth once daily. - sucralfate (CARAFATE) 1 gram tablet Take 1 g by mouth three times a day as needed (acid reflux). - traZODone (DESYREL) 50 mg tablet Take 50 mg by mouth daily at bedtime. - tiZANidine (ZANAFLEX) 2 mg tablet Take 2 mg by mouth every 8 hours as needed (pain). - atorvastatin (LIPITOR) 80 mg tablet Take 80 mg by mouth once daily. - albuterol HFA (PROVENTIL HFA, VENTOLIN HFA) 90 mcg/actuation inhaler Inhale 2 Puffs as instructed every 4 hours as needed for wheezing/shortness of breath. - budesonide (PULMICORT) 1 mg/2 mL nebulizer solution Use 1 mg via nebulizer once daily. - busPIRone (BUSPAR) 7.5 mg tablet Take 7.5 mg by mouth two times a day. - clopidogrel (PLAVIX) 75 mg tablet Take 75 mg by mouth once daily. - TRULICITY 0.75 mg/0.5 mL pen injector Inject 0.75 mg subcutaneously one time a week. - FREESTYLE TANIKA 2 SENSOR kit 1 Each every 2 weeks. - fluticasone (FLONASE) 50 mcg/actuation nasal spray Use 1 [place] in each nostril once daily. - furosemide (LASIX) 40 mg tablet Take 40 mg by mouth two times a day. - HUMALOG KWIKPEN INSULIN 100 unit/mL - isosorbide mononitrate ER (IMDUR) 60 mg 24 hr tablet Take 60 mg by mouth once daily. - FREESTYLE TANIKA 2 READER 1 Each every year. - multivit,calc,mins/iron/ folic (THERA-M ORAL) Take 1 tablet by mouth once daily. - senna-docusate (SENNA PLUS) 8.6-50 mg per tablet Take 1 tablet by mouth once daily. - acetaminophen (TYLENOL EXTRA STRENGTH) 500 mg tablet Take 500 mg by mouth every 6 hours as needed for pain. - OXYGEN, HOME THERAPY, Inhale 4 L/min as instructed continuous. Problem List As Of Date: 05/23/2025 (None) Encounter Status:Closed by KEN QUACH on 05/23/25 [facility] Gram stainOrdered By: Shonda Palm on 05-23-2025 Microscopic observation Gram stain Nom (Unsp spec) [facility] CNOVon 05-16-2025 CNOV Office Visit (SPNMED ) -------- JEANNA VARGAS ([id number]) 1950 F [place] Date Time Provider Department 05/16/25 2:20 PM KATIA GUPTA During your visit today, we recorded the following information about you: Pulse Blood pressure Weight Height 69/minute 106/49 93.4 kg 1.575 m Katia Gupta PA-C 05/16/2025 3:18 PM Signed Katia Gupta PA-C [facility] [address] [id number] 05/16/2025 ASSESSMENT AND PLAN: Assessment : Encounter Diagnosis ICD-10-CM 1. Radiculopathy, cervical region M54.12 CONSULT TO PHYSICAL THERAPY XR CERV OTHER 4V AP/LAT/FLX/EXT 2. Neck pain M54.2 CONSULT TO PHYSICAL THERAPY XR CERV OTHER 4V AP/LAT/FLX/EXT Discussion: Mrs. Vargas is a pleasant 74-year-old female brought here today by a transport service from her [facility]. She is seated in a wheelchair for today's visit but also was able to use a rollator. She has an oxygen concentrator and has COPD. Her breathing is rapid and shallow. She talks about LUE radiating symptoms from the side of her neck all the way down to the "whole hand". This has been going on for a couple of months without known injury. She has tried lidocaine patches, Benzocaine cream, Tylenol, Zanaflex. These all help a bit EXAM Highlights: Slow to mobilize out of her wheelchair and is somewhat unsteady on her feet. She initially thought that she could get up onto the exam table but realized since there were no hand railings or grab handles, she really could not do that on her own. We completed the exam seated in the wheelchair. There is pain on palpation over the musculature on the lateral side of the neck and in the trapezial region and throughout the LUE. 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 She has hyporeflexia throughout BUE and it is symmetrical. She has mild deconditioning-related weakness throughout upper extremities. There is no focal motor deficit specific to a nerve root function. Cervical motion reproduces neck pain mostly in the back and on the left side. Motion is minimally limited. IMAGING: There are no images in her [facility] chart to review SUMMARY/PLAN: She has not had any care or evaluation previously for this problem and symptoms are only 2 months old. She has not had any treatment yet so we will start her in supervised PT and I would obtain some cervical x-rays for a baseline determination. She may have cervical radiculopathy but that is uncertain based on her physical examination. Plan : DIAGNOSTIC TESTING: -X-ray views will be obtained to better evaluate bony structures. -Dynamic plain radiographs of the Cervical spine are ordered. REFERAL FOR SERVICES: -Physical therapy will be instituted. MEDICATIONS: -Current medication regimen is appropriate for this problem. ACTIVITY RECOMMENDATIONS: -The patient is encouraged to avoid bed rest and maintain normal activity. -The patient is encouraged to exercise regularly as tolerated. FOLLOW-UP: -The patient is instructed to return as needed. This document has been created with the use of voice recognition technology. It may contain inaccuracies: (e.g. misspellings, inaccurate syntax or word sense) that have escaped review. Time spent: 45 minutes today with this patient visit. This includes [id number] time, review of chart records regarding conservative care history, spine-pertinent imaging, and communication/care coordination with referring provider, problem-specific history-taking and counseling/education regarding treatment options. cc: No referring provider defined for this encounter. Phone: N/A Fax: Results of consultation to be transmitted via electronic medical record for those providers who practice within [facility] or with access to [facility] via [facility], or via letter. ######################## ######################## ######################## CHIEF COMPLAINT: Patient is here for the neck pain, left side of the face, left shoulder, left arm and hand. Has this pain for 2 months now, woke up with swelling in her face, shoulder and upper arm, left side. Level of the pain is at 7/10. Sometimes has numbness and tingling in her arms and hands. HPI: See "Discussiuon" above History of bowel or bladder dysfunction (not IBS or constipation): No History of previous spinal surgery: No History of spinal fracture: No Work Status: retired NON-OPERATIVE CARE: Medication(s): She has tried the following for relief of her symptoms: OTC Tylenol Muscle relaxant: Zanaflex Lidoderm patches Physical Therapy: She has not had physical therapy for her current symptoms. Spinal Injections: She has not gotten prior spinal injections. Other (more content not included)... Normal [facility] Absolute lymphocyte countOrd ered By: Michelle Givens on 04-27-2025 Lymphocytes Auto (Unsp spec) [#/Vol] 1.31 10*3/uL 0.83-4.51 [facility] Anion gap in Serum or Plasma Ordered By: Michelle Givens on 04-27-2025 Anion gap [Moles/Vol] 11 mmol/L 5-15 [facility] Automated lymphocyte count a s percentage of total leukocytesOrdered By: Michelle Givens on 04-27-2025 Lymphocytes/100 WBC Auto (Unsp spec) 11.3 % Low 19-41 [facility] BUN/creatinine ratioOrdered By: Michelle Givens on 04-27-2025 Urea nitrogen/Creatinine [Mass ratio] 15.6 mg/mg 10-20 [facility] Basophil percentageOrdered B y: Michelle Givens on 04-27-2025 Basophils/100 WBC (Bld) 0.8 % 0-1 [facility] Carbon dioxide, total [Moles /volume] in Central venous bloodOrdered By: Michelle Givens on 04-27-2025 CO2 [Moles/Vol] 26.8 mmol/L 21.0-32.0 [facility] Chloride assayOrdered By: Vinicius Givens on 04-27-2025 Chloride [Moles/Vol] 100 mmol/L 98-108 [facility] Eosinophil percentageOrdered By: Michelle Givens on 04-27-2025 Eosinophils/100 WBC (Bld) 2.2 % 0-5 [facility] Erythrocyte distribution wid th ratioOrdered By: Michelle Givens on 04-27-2025 Erythrocyte distribution width (RBC) [Ratio] 12.6 % 11.6-14.6 [facility] Erythrocyte distribution wid th standard deviationOrdered By: Michelle Givens on 04-27-2025 Erythrocyte distribution width (RBC) [Ratio] 41.0 fl 35.1-43.9 [facility] Glomerular filtration rate ( GFR) estimation/1.73 sq m using serum, plasma, or whole bOrdered By: Michelle Givens on 04-27-2025 GFR/1.73 sq M.predicted among non-blacks MDRD (S/P/Bld) [Vol rate/Area] 71 mL/min/{1.73_m2} >60 [facility] Hematocrit Auto (Bld) [Volum e fraction]Ordered By: Michelle Givens on 04-27-2025 Hematocrit (Bld) [Volume fraction] 33.6 % Low 37-47 [facility] Hemoglobin measurementOrdere d By: Michelle Gievns on 04-27-2025 Hemoglobin (Bld) [Mass/Vol] 10.8 g/dL Low 12.0-15.0 [facility] Immature granulocytes/100 WB C Auto (Bld)Ordered By: Michelle Givens 04-27-2025 Immature granulocytes/100 WBC (Bld) 0.400 % 0.0-0.9 [facility] MCV (mean corpuscular volume ) determinationOrdered By: Michelle Givens 04-27-2025 MCV (RBC) [Entitic vol] 89.6 fL 81-99 [facility] Mean corpuscular hemoglobin (MCH) determinationOrdered By: Michelle Givens 04-27-2025 MCH (RBC) [Entitic mass] 28.8 pg 27.0-32.0 [facility] Monocyte percentageOrdered B y: Michelle Givens on 04-27-2025 Monocytes/100 WBC (Bld) 6.0 % 0-10 [facility] Natriuretic peptide.B prohor marcy N-Terminal [Mass/volume] in Serum or PlasmaOrdered By: Michelle Givens on 04-27-2025 Natriuretic peptide.B prohormone N-Terminal [Mass/Vol] 442 pg/mL <900 [facility] Neutrophil percentageOrdered By: Michelle Givens on 04-27-2025 Neutrophils/100 WBC (Bld) 79.3 % High 47-70 [facility] Platelet countOrdered By: Vinicius Givens on 04-27-2025 Platelets (Bld) [#/Vol] 321 10*3/uL 150-450 [facility] Potassium measurement (mass/ volume)Ordered By: Michelle Givens on 04-27-2025 Potassium (Unsp spec) [Mass/Vol] 4.6 mmol/L 3.3-5.1 [facility] RBC Auto (Bld) [#/Vol]Ordere d By: Michelle Givens on 04-27-2025 RBC (Bld) [#/Vol] 3.75 10*6/uL Low 4.2-5.4 [facility] Serum creatinine measurement (mass/volume)Ordered By: Michelle Givens on 04-27-2025 Creatinine [Mass/Vol] 0.87 mg/dL 0.70-1.20 [facility] Serum glucose measurement (m ass/volume)Ordered By: Michelle Givens on 04-27-2025 Glucose [Mass/Vol] 153 mg/dL High 70-99 [facility] Serum or plasma calcium lexy urement (mass/volume)Ordered By: Michelle Givens on 04-27-2025 Calcium [Mass/Vol] 9.7 mg/dL 7.6-11.0 [facility] Serum or plasma urea nitroge n measurement (mass/volume)Ordered By: Michelle Givens on 04-27-2025 Urea nitrogen [Mass/Vol] 14 mg/dL 4-19 [facility] Sodium levelOrdered By: Glenna Givens on 04-27-2025 Sodium [Moles/Vol] 137 mmol/L 133-145 [facility] White blood cell (WBC) count Ordered By: Michelle Givens on 04-27-2025 WBC (Bld) [#/Vol] 11.6 10*3/uL High 4.4-11.0 [facility] Anion gap in Serum or Plasma Ordered By: Billy Madera on 04-12-2025 Anion gap [Moles/Vol] 9 mmol/L 5-15 [facility] BUN/creatinine ratioOrdered By: Billy Madera on 04-12-2025 Urea nitrogen/Creatinine [Mass ratio] 15.5 mg/mg 10-20 [facility] Bilirubin, totalOrdered By: Billy Madera on 04-12-2025 Bilirubin [Mass/Vol] 0.28 mg/dL 0.00-1.30 [facility] Carbon dioxide, total [Moles /volume] in Central venous bloodOrdered By: Billy Madera on 04-12-2025 CO2 [Moles/Vol] 28.9 mmol/L 21.0-32.0 [facility] Chloride assayOrdered By: Evelia Madera on 04-12-2025 Chloride [Moles/Vol] 103 mmol/L 98-108 [facility] Erythrocyte distribution wid th ratioOrdered By: Billy Madera on 04-12-2025 Erythrocyte distribution width (RBC) [Ratio] 12.6 % 11.6-14.6 [facility] Erythrocyte distribution wid th standard deviationOrdered By: Billy Madera on 04-12-2025 Erythrocyte distribution width (RBC) [Ratio] 41.4 fl 35.1-43.9 [facility] Glomerular filtration rate ( GFR) estimation/1.73 sq m using serum, plasma, or whole bOrdered By: Billy Madera on 04-12-2025 GFR/1.73 sq M.predicted among non-blacks MDRD (S/P/Bld) [Vol rate/Area] 70 mL/min/{1.73_m2} >60 [facility] Gram stainOrdered By: Shonda Palm on 04-12-2025 Microscopic observation Gram stain Nom (Unsp spec) [facility] Hematocrit Auto (Bld) [Volum e fraction]Ordered By: Billy Madera on 04-12-2025 Hematocrit (Bld) [Volume fraction] 31.3 % Low 37-47 [facility] Hemoglobin A1c percentageOrd ered By: Billy Madera on 04-12-2025 HbA1c (Bld) [Mass fraction] 6.5 % High <5.7 [facility] Hemoglobin measurementOrdere d By: Billy Madera on 04-12-2025 Hemoglobin (Bld) [Mass/Vol] 9.8 g/dL Low 12.0-15.0 [facility] MCV (mean corpuscular volume ) determinationOrdered By: Billy Madera on 04-12-2025 MCV (RBC) [Entitic vol] 89.7 fL 81-99 [facility] Mean corpuscular hemoglobin (MCH) determinationOrdered By: Billy Madera on 04-12-2025 MCH (RBC) [Entitic mass] 28.1 pg 27.0-32.0 [facility] No Panel InformationOrdered By: Billy Madera on 04-12-2025 15 U/L <32 [facility] Platelet countOrdered By: Evelia Madera on 04-12-2025 Platelets (Bld) [#/Vol] 269 10*3/uL 150-450 [facility] Potassium measurement (mass/ volume)Ordered By: Billy Madera on 04-12-2025 Potassium (Unsp spec) [Mass/Vol] 5.1 mmol/L 3.3-5.1 [facility] RBC Auto (Bld) [#/Vol]Ordere d By: Billy Madera on 04-12-2025 RBC (Bld) [#/Vol] 3.49 10*6/uL Low 4.2-5.4 [facility] Serum creatinine measurement (mass/volume)Ordered By: Billy Madera on 04-12-2025 Creatinine [Mass/Vol] 0.87 mg/dL 0.70-1.20 [facility] Serum globulin measurementOr dered By: Billy Madera on 04-12-2025 Globulin (S) [Mass/Vol] 2.4 g/dL 2.2-4.2 [facility] Serum glucose measurement (m ass/volume)Ordered By: Billy Madera on 04-12-2025 Glucose [Mass/Vol] 84 mg/dL 70-99 [facility] Serum or plasma alanine chong otransferase (ALT) measurementOrdered By: Billy Madera on 09-04-2025 ALT [Catalytic activity/Vol] 10 U/L <35 [facility] Serum or plasma albumin lexy urement (mass/volume)Ordered By: Billy Yuriysarabjitjose maria on 04-12-2025 Albumin [Mass/Vol] 3.8 g/dL 3.4-4.8 [facility] Serum or plasma albumin/glob ulin mass ratioOrdered By: Billy Yuriysarabjitjose maria on 04-12-2025 Albumin/Globulin [Mass ratio] 1.6 {ratio} 0.9-2.4 [facility] Serum or plasma alkaline radha sphatase measurementOrdered By: Billy Yuriysarabjitjose maria on 04-12-2025 ALP [Catalytic activity/Vol] 164 U/L High 35-104 [facility] Serum or plasma calcium lexy urement (mass/volume)Ordered By: Billy Yuriysarabjitjose maria on 04-12-2025 Calcium [Mass/Vol] 9.5 mg/dL 7.6-11.0 [facility] Serum or plasma urea nitroge n measurement (mass/volume)Ordered By: Billy Yuriysarabjitjose maria on 04-12-2025 Urea nitrogen [Mass/Vol] 14 mg/dL 4-19 [facility] Sodium levelOrdered By: Reji ireland Yuriysarabjitjose maria on 04-12-2025 Sodium [Moles/Vol] 140 mmol/L 133-145 [facility] Total proteinOrdered By: Kelby garcia Yuriysarabjitjose maria on 04-12-2025 Protein [Mass/Vol] 6.2 g/dL 5.9-8.4 [facility] White blood cell (WBC) count Ordered By: Eveliacandidashu Yuriysarabjitjose maria on 04-12-2025 WBC (Bld) [#/Vol] 9.1 10*3/uL 4.4-11.0 [facility] Gram stainOrdered By: Candy Sagastume on 03-30-2025 Microscopic observation Gram stain Nom (Unsp spec) [facility] Routine wound cultureOrdered By: Candy Sagastume on 03-30-2025 Microbial culture, routine Meth. resistant Staph. aureus Abnormal [facility] Microbial culture, routine Staphylococcus epidermidis Abnormal 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 She was initially seen for thyroid nodules in 01/2024, and difficulty swallowing A repeat thyroid ultrasound as reported by patient, did not show any changes in nodule size Today, patient rather presents for a new complain but is scheduled as a follow up She recently started noticing neck, shoulder swelling and pain which she thinks is due to inhalational steroid use and would like to have work up for Fausto's She has COPD for which she was on prednisone oral daily in the past, not any more. She is now on inhalational steroids only She When asked how does she know about Fausto's she reported she researched and is worried due to neck swelling, and is looking for answers, as her PCP suggested pain management referral for the pain, and possible neck surgery if she is worried about the neck swelling which apparently was assumed to be due to fat deposition. 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 ([facility]) PAST SURGICAL HISTORY Procedure Laterality Date CHOLECYSTECTOMY Cholecystectomy ALLERGIES Allergen Reactions Omeprazole Shortness of Breath nervous Amoxicillin Rash, Hives Clonazepam Unknown Codeine Other: See Comments headache Gabapentin Unknown Hydrocodone Unknown Iodinated Contrast * Unknown Levaquin [Levofloxa* Hives can take liquid if no red dye Ranitidine Hives due to the red dye Red Dye Hives Sudafed [Pseudoephe* Rash Social History Tobacco Use Smoking status: Former Current packs/day: 0.00 Types: Cigarettes Quit date: 2018 Years since quittin.6 Passive exposure: Past Smokeless tobacco: Never Vaping Use Vaping status: Never Used Substance Use Topics Alcohol use: No Drug use: Never FAMILY HISTORY Problem Relation Age of Onset Colon Cancer Mother COPD Father Heart Brother Thyroid No Family History MEDICATIONS: Current Outpatient Medications on File Prior [...] SYSTEMS: As per HPI PHYSICAL EXAMINATION: BP: 122/68 Pulse: 71 Resp: 22 SpO2: 97 % During examination, she requested to be done while being seated on the chair General: no acute distress, alert and orientated X 3, on home oxygen with nasal cannula, using walker to ambulate Eyes: EOMI, anicteric sclera Neck - supple, no significant adenopathy Thyroid: due to bod (more content not included)... Normal [facility] No Panel InformationOrdered By: Billy Madera on 03-08-2025 6.3 % 4.2-6.3 [facility] Magnetic resonance imaging r eportOrdered By: Sheri Becker on 02-16-[address] [facility] Absolute lymphocyte countOrd ered By: July Freitas on 02-12-2025 Lymphocytes Auto (Unsp spec) [#/Vol] 1.94 10*3/uL 0.83-4.51 [facility] Anion gap in Serum or Plasma Ordered By: July Freitas on 02-12-2025 Anion gap [Moles/Vol] 12 mmol/L 5-15 [facility] Automated lymphocyte count a s percentage of total leukocytesOrdered By: July Freitas on 02-12-2025 Lymphocytes/100 WBC Auto (Unsp spec) 17.3 % Low 19-41 [facility] BUN/creatinine ratioOrdered By: July Freitas on 02-12-2025 Urea nitrogen/Creatinine [Mass ratio] 13.3 mg/mg 10-20 [facility] Basophil percentageOrdered B y: July Freitas on 02-12-2025 Basophils/100 WBC (Bld) 1.1 % High 0-1 [facility] Bilirubin, totalOrdered By: July Freitas on 02-12-2025 Bilirubin [Mass/Vol] 0.28 mg/dL 0.00-1.30 [facility] Carbon dioxide, total [Moles /volume] in Central venous bloodOrdered By: July Freitas on 02-12-2025 CO2 [Moles/Vol] 25.0 mmol/L 21.0-32.0 [facility] Chloride assayOrdered By: Salvador Freitas on 02-12-2025 Chloride [Moles/Vol] 99 mmol/L 98-108 [facility] Eosinophil percentageOrdered By: July Freitas on 02-12-2025 Eosinophils/100 WBC (Bld) 1.8 % 0-5 [facility] Erythrocyte distribution wid th ratioOrdered By: July Freitas on 02-12-2025 Erythrocyte distribution width (RBC) [Ratio] 12.8 % 11.6-14.6 [facility] Erythrocyte distribution wid th standard deviationOrdered By: July Freitas on 02-12-2025 Erythrocyte distribution width (RBC) [Ratio] 43.1 fl 35.1-43.9 [facility] Free [id number] By: July sarah on 02-12-2025 Free T3 [Mass/Vol] 2.6 pg/mL 2.18-3.98 [facility] Glomerular filtration rate ( GFR) estimation/1.73 sq m using serum, plasma, or whole bOrdered By: July Freitas on 02-12-2025 GFR/1.73 sq M.predicted among non-blacks MDRD (S/P/Bld) [Vol rate/Area] 67 mL/min/{1.73_m2} >60 [facility] Hematocrit Auto (Bld) [Volum e fraction]Ordered By: July Freitas on 02-12-2025 Hematocrit (Bld) [Volume fraction] 37.0 % 37-47 [facility] Hemoglobin measurementOrdere d By: July Freitas on 02-12-2025 Hemoglobin (Bld) [Mass/Vol] 11.4 g/dL Low 12.0-15.0 [facility] Immature granulocytes/100 WB C Auto (Bld)Ordered By: July Freitas on 02-12-2025 Immature granulocytes/100 WBC (Bld) 0.400 % 0.0-0.9 [facility] MCV (mean corpuscular volume ) determinationOrdered By: July Freitas on 02-12-2025 MCV (RBC) [Entitic vol] 91.6 fL 81-99 [facility] Mean corpuscular hemoglobin (MCH) determinationOrdered By: July Freitas on 02-12-2025 MCH (RBC) [Entitic mass] 28.2 pg 27.0-32.0 [facility] Monocyte percentageOrdered B y: July Freitas on 02-12-2025 Monocytes/100 WBC (Bld) 6.9 % 0-10 [facility] Neutrophil percentageOrdered By: July Freitas on 02-12-2025 Neutrophils/100 WBC (Bld) 72.5 % High 47-70 [facility] No Panel InformationOrdered By: July Freitas on 02-12-2025 17 U/L <32 [facility] Platelet countOrdered By: Salvador Freitas on 02-12-2025 Platelets (Bld) [#/Vol] 362 10*3/uL 150-450 [facility] Potassium measurement (mass/ volume)Ordered By: July Freitas on 02-12-2025 Potassium (Unsp spec) [Mass/Vol] 4.6 mmol/L 3.3-5.1 [facility] RBC Auto (Bld) [#/Vol]Ordere d By: July Freitas on 02-12-2025 RBC (Bld) [#/Vol] 4.04 10*6/uL Low 4.2-5.4 [facility] Serum creatinine measurement (mass/volume)Ordered By: July Freitas on 02-12-2025 Creatinine [Mass/Vol] 0.90 mg/dL 0.70-1.20 [facility] Serum globulin measurementOr dered By: July Freitas on 02-12-2025 Globulin (S) [Mass/Vol] 3.1 g/dL 2.2-4.2 [facility] Serum glucose measurement (m ass/volume)Ordered By: July Freitas on 02-12-2025 Glucose [Mass/Vol] 80 mg/dL 70-99 [facility] Serum or plasma C reactive p rotein measurement (mass/volume)Ordered By: July Freitas on 02-12-2025 CRP [Mass/Vol] mg/L 0.0-3.0 [facility] Serum or plasma alanine chong otransferase (ALT) measurementOrdered By: July Freitas on 02-12-2025 ALT [Catalytic activity/Vol] 15 U/L <35 [facility] Serum or plasma albumin lexy urement (mass/volume)Ordered By: July Freitas on 02-12-2025 Albumin [Mass/Vol] 4.3 g/dL 3.4-4.8 [facility] Serum or plasma albumin/glob ulin mass ratioOrdered By: July Freitas on 02-12-2025 Albumin/Globulin [Mass ratio] 1.4 {ratio} 0.9-2.4 [facility] Serum or plasma alkaline radha sphatase measurementOrdered By: July Freitas on 02-12-2025 ALP [Catalytic activity/Vol] 185 U/L High 35-104 [facility] Serum or plasma calcium lexy urement (mass/volume)Ordered By: July Freitas on 02-12-2025 Calcium [Mass/Vol] 9.9 mg/dL 7.6-11.0 [facility] Serum or plasma urea nitroge n measurement (mass/volume)Ordered By: July Freitas on 02-12-2025 Urea nitrogen [Mass/Vol] 12 mg/dL 4-19 [facility] Sodium levelOrdered By: Comfort Freitas on 02-12-2025 Sodium [Moles/Vol] 135 mmol/L 133-145 [facility] TSH DL <= 0.005 mIU/L QnOrde red By: July Freitas on 02-12-2025 TSH Qn 2.300 uIU/mL 0.300-4.200 [facility] ThyroxineOrdered By: July Freitas on 02-12-2025 T4 [Mass/Vol] 6.1 ug/dL 4.8-13.9 [facility] Total proteinOrdered By: Opal Freitas on 02-12-2025 Protein [Mass/Vol] 7.4 g/dL 5.9-8.4 [facility] White blood cell (WBC) count Ordered By: July Freitas on 02-12-2025 WBC (Bld) [#/Vol] 11.2 10*3/uL High 4.4-11.0 [facility] Anion gap in Serum or Plasma Ordered By: Billy Madera on 01-11-2025 Anion gap [Moles/Vol] 11 mmol/L 5-15 [facility] BUN/creatinine ratioOrdered By: Billy Madera on 01-11-2025 Urea nitrogen/Creatinine [Mass ratio] 18.7 mg/mg 10-20 [facility] Bilirubin, totalOrdered By: Billy Madera on 01-11-2025 Bilirubin [Mass/Vol] 0.33 mg/dL 0.00-1.30 [facility] Carbon dioxide, total [Moles /volume] in Central venous bloodOrdered By: Billy Madera on 01-11-2025 CO2 [Moles/Vol] 26.8 mmol/L 21.0-32.0 [facility] Chloride assayOrdered By: Evelia Madera on 01-11-2025 Chloride [Moles/Vol] 100 mmol/L 98-108 [facility] Erythrocyte distribution wid th ratioOrdered By: Billy Madera on 01-11-2025 Erythrocyte distribution width (RBC) [Ratio] 13.0 % 11.6-14.6 [facility] Erythrocyte distribution wid th standard deviationOrdered By: Billy Madera on 01-11-2025 Erythrocyte distribution width (RBC) [Ratio] 42.1 fl 35.1-43.9 [facility] Glomerular filtration rate ( GFR) estimation/1.73 sq m using serum, plasma, or whole bOrdered By: Billy Madera on 01-11-2025 GFR/1.73 sq M.predicted among non-blacks MDRD (S/P/Bld) [Vol rate/Area] 72 mL/min/{1.73_m2} >60 [facility] Hematocrit Auto (Bld) [Volum e fraction]Ordered By: Billy Madera on 01-11-2025 Hematocrit (Bld) [Volume fraction] 34.1 % Low 37-47 [facility] Hemoglobin A1c percentageOrd ered By: Billy Madera on 01-11-2025 HbA1c (Bld) [Mass fraction] 6.6 % High <5.7 [facility] Hemoglobin measurementOrdere d By: Billy Madera on 01-11-2025 Hemoglobin (Bld) [Mass/Vol] 10.8 g/dL Low 12.0-15.0 [facility] MCV (mean corpuscular volume ) determinationOrdered By: Billy Madera on 01-11-2025 MCV (RBC) [Entitic vol] 89.0 fL 81-99 [facility] Mean corpuscular hemoglobin (MCH) determinationOrdered By: Billy Madera on 01-11-2025 MCH (RBC) [Entitic mass] 28.2 pg 27.0-32.0 [facility] No Panel InformationOrdered By: Billy Madera on 01-11-2025 16 U/L <32 [facility] Platelet countOrdered By: Evelia Madera on 01-11-2025 Platelets (Bld) [#/Vol] 307 10*3/uL 150-450 [facility] Potassium measurement (mass/ volume)Ordered By: Billy Madera on 01-11-2025 Potassium (Unsp spec) [Mass/Vol] 4.3 mmol/L 3.3-5.1 [facility] RBC Auto (Bld) [#/Vol]Ordere d By: Billy Madera on 01-11-2025 RBC (Bld) [#/Vol] 3.83 10*6/uL Low 4.2-5.4 [facility] Serum creatinine measurement (mass/volume)Ordered By: Billy Madera on 01-11-2025 Creatinine [Mass/Vol] 0.85 mg/dL 0.70-1.20 [facility] Serum globulin measurementOr dered By: Billy Madera on 01-11-2025 Globulin (S) [Mass/Vol] 2.8 g/dL 2.2-4.2 [facility] Serum glucose measurement (m ass/volume)Ordered By: Billy Madera on 01-11-2025 Glucose [Mass/Vol] 87 mg/dL 70-99 [facility] Serum or plasma alanine chong otransferase (ALT) measurementOrdered By: Billy Madera on 01-11-2025 ALT [Catalytic activity/Vol] 12 U/L <35 [facility] Serum or plasma albumin lexy urement (mass/volume)Ordered By: Billy Madera on 01-11-2025 Albumin [Mass/Vol] 3.8 g/dL 3.4-4.8 [facility] Serum or plasma albumin/glob ulin mass ratioOrdered By: Billy Madera on 01-11-2025 Albumin/Globulin [Mass ratio] 1.4 {ratio} 0.9-2.4 [facility] Serum or plasma alkaline radha sphatase measurementOrdered By: Billy Madera on 01-11-2025 ALP [Catalytic activity/Vol] 149 U/L High 35-104 [facility] Serum or plasma calcium lexy urement (mass/volume)Ordered By: Billy Madera on 01-11-2025 Calcium [Mass/Vol] 9.5 mg/dL 7.6-11.0 [facility] Serum or plasma urea nitroge n measurement (mass/volume)Ordered By: Billy Madera on 01-11-2025 Urea nitrogen [Mass/Vol] 16 mg/dL 4-19 [facility] Sodium levelOrdered By: Reji Madera on 01-11-2025 Sodium [Moles/Vol] 138 mmol/L 133-145 [facility] Total proteinOrdered By: Kelby Madera on 01-11-2025 Protein [Mass/Vol] 6.6 g/dL 5.9-8.4 [facility] White blood cell (WBC) count Ordered By: Billy Madera on 01-11-2025 WBC (Bld) [#/Vol] 8.9 10*3/uL 4.4-11.0 [facility] Absolute lymphocyte countOrd ered By: Grover Mayer on 01-05-2025 Lymphocytes Auto (Unsp spec) [#/Vol] 1.56 10*3/uL 0.83-4.51 [facility] Anion gap in Serum or Plasma Ordered By: Grover Mayer on 01-05-2025 Anion gap [Moles/Vol] 10 mmol/L 5-15 [facility] Automated lymphocyte count a s percentage of total leukocytesOrdered By: Grover Mayer on 01-05-2025 Lymphocytes/100 WBC Auto (Unsp spec) 13.7 % Low 19-41 [facility] BUN/creatinine ratioOrdered By: Grover Mayer on 01-05-2025 Urea nitrogen/Creatinine [Mass ratio] 18.6 mg/mg 10-20 [facility] Basophil percentageOrdered B y: Grover Mayer on 01-05-2025 Basophils/100 WBC (Bld) 0.7 % 0-1 [facility] Bilirubin, totalOrdered By: Grover Mayer on 01-05-2025 Bilirubin [Mass/Vol] 0.22 mg/dL 0.00-1.30 [facility] Carbon dioxide, total [Moles /volume] in Central venous bloodOrdered By: Grover Mayer on 01-05-2025 CO2 [Moles/Vol] 23.9 mmol/L 21.0-32.0 [facility] Chloride assayOrdered By: Francisco J tthecheyanne Mayer on 01-05-2025 Chloride [Moles/Vol] 97 mmol/L Low 98-108 [facility] Eosinophil percentageOrdered By: Grover Mayer on 01-05-2025 Eosinophils/100 WBC (Bld) 1.8 % 0-5 [facility] Erythrocyte distribution wid th ratioOrdered By: Grover Mayer on 01-05-2025 Erythrocyte distribution width (RBC) [Ratio] 12.9 % 11.6-14.6 [facility] Erythrocyte distribution wid th standard deviationOrdered By: Grover Mayer on 01-05-2025 Erythrocyte distribution width (RBC) [Ratio] 42.0 fl 35.1-43.9 [facility] Erythrocyte sedimentation ra teOrdered By: Grover Mayer on 01-05-2025 ESR (Bld) [Velocity] 33 mm/h High 0-30 [facility] Glomerular filtration rate ( GFR) estimation/1.73 sq m using serum, plasma, or whole bOrdered By: Grover Mayer on 01-05-2025 GFR/1.73 sq M.predicted among non-blacks MDRD (S/P/Bld) [Vol rate/Area] 70 mL/min/{1.73_m2} >60 [facility] Hematocrit Auto (Bld) [Volum e fraction]Ordered By: Grover Mayer on 01-05-2025 Hematocrit (Bld) [Volume fraction] 32.4 % Low 37-47 [facility] Hemoglobin measurementOrdere d By: Grover Mayer on 01-05-2025 Hemoglobin (Bld) [Mass/Vol] 10.4 g/dL Low 12.0-15.0 [facility] Immature granulocytes/100 WB C Auto (Bld)Ordered By: Grover Mayer on 01-05-2025 Immature granulocytes/100 WBC (Bld) 0.500 % 0.0-0.9 [facility] MCV (mean corpuscular volume ) determinationOrdered By: Grover Mayer on 01-05-2025 MCV (RBC) [Entitic vol] 89.5 fL 81-99 [facility] Mean corpuscular hemoglobin (MCH) determinationOrdered By: Grover Mayer on 01-05-2025 MCH (RBC) [Entitic mass] 28.7 pg 27.0-32.0 [facility] Monocyte percentageOrdered B y: Grover Mayer on 01-05-2025 Monocytes/100 WBC (Bld) 6.2 % 0-10 [facility] Neutrophil percentageOrdered By: Grover Mayer on 01-05-2025 Neutrophils/100 WBC (Bld) 77.1 % High 47-70 [facility] No Panel InformationOrdered By: Grover Mayer on 01-05-2025 16 U/L <32 [facility] Platelet countOrdered By: Francisco J ttjude Mayer on 01-05-2025 Platelets (Bld) [#/Vol] 354 10*3/uL 150-450 [facility] Potassium measurement (mass/ volume)Ordered By: Grover Mayer on 01-05-2025 Potassium (Unsp spec) [Mass/Vol] 4.3 mmol/L 3.3-5.1 [facility] Qualitative QuantiFERON-TB g old in tube testOrdered By: Grover Mayer on 01-05-2025 M. tuberculosis tuberculin stim IFN-g Ql (Bld) 0.02 IU/mL . [facility] RBC Auto (Bld) [#/Vol]Ordere d By: Grover Mayer on 01-05-2025 RBC (Bld) [#/Vol] 3.62 10*6/uL Low 4.2-5.4 [facility] Serum creatinine measurement (mass/volume)Ordered By: Grover Mayer on 01-05-2025 Creatinine [Mass/Vol] 0.87 mg/dL 0.70-1.20 [facility] Serum globulin measurementOr dered By: Grover Mayer on 01-05-2025 Globulin (S) [Mass/Vol] 2.5 g/dL 2.2-4.2 [facility] Serum glucose measurement (m ass/volume)Ordered By: Grover Mayer on 01-05-2025 Glucose [Mass/Vol] 138 mg/dL High 70-99 [facility] Serum or plasma C reactive p rotein measurement (mass/volume)Ordered By: Grover Mayer on 01-05-2025 CRP [Mass/Vol] 4.76 mg/L High 0.0-3.0 [facility] Serum or plasma alanine chong otransferase (ALT) measurementOrdered By: Grover Mayer on 01-05-2025 ALT [Catalytic activity/Vol] 14 U/L <35 [facility] Serum or plasma albumin lexy urement (mass/volume)Ordered By: Grover Mayer on 01-05-2025 Albumin [Mass/Vol] 4.0 g/dL 3.4-4.8 [facility] Serum or plasma albumin/glob ulin mass ratioOrdered By: Grover Mayer on 01-05-2025 Albumin/Globulin [Mass ratio] 1.6 {ratio} 0.9-2.4 [facility] Serum or plasma alkaline radha sphatase measurementOrdered By: Grover Mayer on 01-05-2025 ALP [Catalytic activity/Vol] 155 U/L High 35-104 [facility] Serum or plasma calcium lexy urement (mass/volume)Ordered By: Grover Mayer on 01-05-2025 Calcium [Mass/Vol] 9.5 mg/dL 7.6-11.0 [facility] Serum or plasma urea nitroge n measurement (mass/volume)Ordered By: Grover Mayer on 01-05-2025 Urea nitrogen [Mass/Vol] 16 mg/dL 4-19 [facility] Sodium levelOrdered By: Marlon Mayer on 01-05-2025 Sodium [Moles/Vol] 131 mmol/L Low 133-145 [facility] Total proteinOrdered By: Eliud Mayer on 01-05-2025 Protein [Mass/Vol] 6.5 g/dL 5.9-8.4 [facility] White blood cell (WBC) count Ordered By: Grover Mayer on 01-05-2025 WBC (Bld) [#/Vol] 11.4 10*3/uL High 4.4-11.0 [facility] Streptococcus pyogenes rRNA detection in throat by DNA probeOrdered By: Deon Rodriguez on 12-23-2024 S. pyogenes rRNA Probe Ql (Throat) [facility] No Panel InformationOrdered By: Billy Madera on 12-04-2024 6.7 % High 4.2-6.3 [facility] Influenza virus A and B and SARS-CoV-2 (COVID-19) and Respiratory syncytial virus RNAOrdered By: Grover Mayer on 10-19-2024 SARS-CoV-2 (COVID-19) RNA GENTRY+probe Ql (Unsp spec) [facility] ALP [Catalytic activity/Vol] Ordered By: Billy Madera on 10-12-2024 Serum or plasma alkaline phosphatase measurement 118 U/L High 35-104 [facility] ALT [Catalytic activity/Vol] Ordered By: Billy Madera on 10-12-2024 Serum or plasma alanine aminotransferase (ALT) measurement 14 U/L <35 [facility] Albumin [Mass/Vol]Ordered By : Billy Madera on 10-12-2024 Serum or plasma albumin measurement (mass/volume) 3.9 g/dL 3.4-4.8 [facility] Albumin/Globulin [Mass ratio ]Ordered By: Billy Madera on 10-12-2024 Serum or plasma albumin/globulin mass ratio 1.4 RATIO 0.9-2.4 [facility] Anion gap [Moles/Vol]Ordered By: Billy Madera on 10-12-2024 Anion gap in Serum or Plasma [address] [facility] Anion gap in Serum or Plasma Ordered By: Billy Madera on 10-12-2024 Anion gap [Moles/Vol] 11 mmol/L 12-21 [facility] BUN/creatinine ratioOrdered By: Billy Madera on 10-12-2024 Urea nitrogen/Creatinine [Mass ratio] 15.2 mg/mg - [facility] BUN/creatinine ratio 15.2 RATIO 05-28 [facility] Bilirubin, totalOrdered By: Billy Madera on 10-12-2024 Bilirubin [Mass/Vol] 0.24 mg/dL 0.00-1.30 [facility] Bilirubin, total 0.24 mg/dL 0.00-1.30 [facility] Calcium [Mass/Vol]Ordered By : Billy Madera on 10-12-2024 Serum or plasma calcium measurement (mass/volume) 9.7 mg/dL 7.6-11.0 [facility] Carbon dioxide, total [Moles /volume] in Central venous bloodOrdered By: Billy Madera on 10-12-2024 CO2 [Moles/Vol] 27.1 mmol/L 21.0-32.0 [facility] Carbon dioxide, total [Moles/volume] in Central venous blood 27.1 mmol/L 21.0-32.0 [facility] Chloride assayOrdered By: Evelia Madera on 10-12-2024 Chloride [Moles/Vol] 98 mmol/L 98-108 [facility] Chloride assay 98 mmol/L 98-108 [facility] Creatinine [Mass/Vol]Ordered By: Billy Madera on 10-12-2024 Serum creatinine measurement (mass/volume) 0.84 mg/dL 0.70-1.20 [facility] Erythrocyte distribution wid th (RBC) [Entitic vol]Ordered By: Billy Madera on 10-12-2024 Erythrocyte distribution width standard deviation 42.1 fl 35.1-43.9 [facility] Erythrocyte distribution wid th (RBC) [Ratio]Ordered By: Billy Madera on 10-12-2024 Erythrocyte distribution width ratio 12.8 % 11.6-14.6 [facility] Erythrocyte distribution wid th ratioOrdered By: Billy Madera on 10-12-2024 Erythrocyte distribution width (RBC) [Ratio] 12.8 % 11.6-14.6 [facility] Erythrocyte distribution wid th standard deviationOrdered By: Billy Madera on 10-12-2024 Erythrocyte distribution width (RBC) [Ratio] 42.1 fl 35.1-43.9 [facility] GFR/1.73 sq M.predicted keyur g non-blacks MDRD (S/P/Bld) [Vol rate/Area]Ordered By: Billy Madera on 10-12-2024 Glomerular filtration rate (GFR) estimation/1.73 sq m using serum, plasma, or whole b 74 >60 [facility] Glomerular filtration rate ( GFR) estimation/1.73 sq m using serum, plasma, or whole bOrdered By: Billy Madera on 10-12-2024 GFR/1.73 sq M.predicted among non-blacks MDRD (S/P/Bld) [Vol rate/Area] 74 mL/min/{1.73_m2} >60 [facility] Glucose [Mass/Vol]Ordered By : Billy Madera on 10-12-2024 Serum glucose measurement (mass/volume) 75 mg/dL 70-99 [facility] HbA1c (Bld) [Mass fraction]O rdered By: Billy Madera on 10-12-2024 Hemoglobin A1c percentage 7.3 % >5.7 [facility] Hematocrit Auto (Bld) [Volum e fraction]Ordered By: Billy Madera on 10-12-2024 Hematocrit (Bld) [Volume fraction] 34.7 % Low 37-47 [facility] Automated blood hematocrit (percentage) 34.7 % Low 37-47 [facility] Hemoglobin A1c percentageOrd ered By: Billy Madera on 10-12-2024 HbA1c (Bld) [Mass fraction] 7.3 % >5.7 [facility] Hemoglobin measurementOrdere d By: Billy Madera on 10-12-2024 Hemoglobin (Bld) [Mass/Vol] 11.0 g/dL Low 12.0-15.0 [facility] Hemoglobin measurement 11.0 g/dL Low 12.0-15.0 [facility] MCV (RBC) [Entitic vol]Order ed By: Billy Madera on 10-12-2024 MCV (mean corpuscular volume) determination 90.1 fL 81-99 [facility] MCV (mean corpuscular volume ) determinationOrdered By: Billy Madera on 10-12-2024 MCV (RBC) [Entitic vol] 90.1 fL 81-99 [facility] Mean corpuscular hemoglobin (MCH) determinationOrdered By: Billy Madera on 10-12-2024 MCH (RBC) [Entitic mass] 28.6 pg 27.0-32.0 [facility] Mean corpuscular hemoglobin (MCH) determination 28.6 pg 27.0-32.0 [facility] Mean corpuscular hemoglobin concentration (MCHC) determinationOrdered By: Billy Madera on 10-12-2024 Mean corpuscular hemoglobin concentration (MCHC) determination 31.7 g/dL Low 32-36 [facility] Mean platelet volume determi nationOrdered By: Billy Madera on 10-12-2024 Mean platelet volume determination 10.5 fl 6.2-12.0 [facility] No Panel InformationOrdered By: Billy Madera on 10-12-2024 17 U/L <32 [facility] Platelet countOrdered By: Evelia Madera on 10-12-2024 Platelets (Bld) [#/Vol] 354 10*3/uL 150-450 [facility] Platelet count 354 K/mm3 150-450 [facility] Potassium (Unsp spec) [Mass/ Vol]Ordered By: Billy Madera on 10-12-2024 Potassium measurement (mass/volume) 4.4 mmol/L 3.3-5.1 [facility] Potassium measurement (mass/ volume)Ordered By: Billy Madera on 10-12-2024 Potassium (Unsp spec) [Mass/Vol] 4.4 mmol/L 3.3-5.1 [facility] RBC Auto (Bld) [#/Vol]Ordere d By: Billy [place] on 10-12-2024 RBC (Bld) [#/Vol] 3.85 10*6/uL Low 4.2-5.4 [facility] Automated blood erythrocyte count 3.85 M/mm3 Low 4.2-5.4 [facility] Serum creatinine measurement (mass/volume)Ordered By: Billy Madera on 10-12-2024 Creatinine [Mass/Vol] 0.84 mg/dL 0.70-1.20 [facility] Serum globulin measurementOr dered By: Billy Madera on 10-12-2024 Globulin (S) [Mass/Vol] 2.7 g/dL 2.2-4.2 [facility] Serum globulin measurement 2.7 g/dL 2.2-4.2 [facility] Serum glucose measurement (m ass/volume)Ordered By: Billy Madera on 10-12-2024 Glucose [Mass/Vol] 75 mg/dL 70-99 [facility] Serum or plasma alanine chong otransferase (ALT) measurementOrdered By: Billy Madera on 10-12-2024 ALT [Catalytic activity/Vol] 14 U/L <35 [facility] Serum or plasma albumin lexy urement (mass/volume)Ordered By: Billy Madera on 10-12-2024 Albumin [Mass/Vol] 3.9 g/dL 3.4-4.8 [facility] Serum or plasma albumin/glob ulin mass ratioOrdered By: Billy Madera on 10-12-2024 Albumin/Globulin [Mass ratio] 1.4 {ratio} 0.9-2.4 [facility] Serum or plasma alkaline radha sphatase measurementOrdered By: Billy Madera on 10-12-2024 ALP [Catalytic activity/Vol] 118 U/L High 35-104 [facility] Serum or plasma calcium lexy urement (mass/volume)Ordered By: Billy Madera on 10-12-2024 Calcium [Mass/Vol] 9.7 mg/dL 7.6-11.0 [facility] Serum or plasma urea nitroge n measurement (mass/volume)Ordered By: Billy Madera on 10-12-2024 Urea nitrogen [Mass/Vol] 13 mg/dL 4- [facility] Sodium levelOrdered By: Reji shu Santy on 10-12-2024 Sodium [Moles/Vol] 137 mmol/L 133-145 [facility] Sodium level 137 mmol/L 133-145 [facility] Total proteinOrdered By: Kelbyjose maria garcia Santy on 10-12-2024 Protein [Mass/Vol] 6.6 g/dL 5.9-8.4 [facility] Total protein 6.6 g/dL 5.9-8.4 [facility] Urea nitrogen [Mass/Vol]Orde red By: Libradoarnav Santy on 10-12-2024 Serum or plasma urea nitrogen measurement (mass/volume) 13 mg/dL 4- [facility] White blood cell (WBC) count Ordered By: Billy Madera on 10-12-2024 WBC (Bld) [#/Vol] 9.9 10*3/uL 4.4-11.0 [facility] White blood cell (WBC) count 9.9 K/mm3 4.4-11.0 [facility] Absolute neutrophil countOrd ered By: ED PROVIDER on 08-02-2024 Absolute neutrophil count 8.5 X10^3/uL High 2.0-7.7 [facility] Blood urea nitrogen (BUN)/cr eatinine ratioOrdered By: Jacky Holland on 08-02-2024 Blood urea nitrogen (BUN)/creatinine ratio 15.7 RATIO 10-20 [facility] Calcium [Mass/Vol]Ordered By : Jacky Holland on 08-02-2024 Serum or plasma calcium measurement (mass/volume) 8.9 mg/dL 8.5-10.1 [facility] Carbon dioxide measurementOr dered By: Jacky Holland on 08-02-2024 Carbon dioxide measurement 29.0 mmol/L 21.0-32.0 [facility] Chloride measurementOrdered By: Jacky Holland on 08-02-2024 Chloride measurement 94 mmol/L Low 98-107 [facility] Creatinine [Mass/Vol]Ordered By: Jacky Holland on 08-02-2024 Serum or plasma creatinine measurement (mass/volume) 0.96 mg/dL 0.55-1.02 [facility] Eosinophil percentageOrdered By: ED PROVIDER on 08-02-2024 Eosinophil percentage 0.3 % 0-1 [facility] Erythrocyte distribution wid th (RBC) [Entitic vol]Ordered By: ED PROVIDER on 08-02-2024 Erythrocyte distribution width standard deviation 43.6 fl 35.1-43.9 [facility] Erythrocyte distribution wid th (RBC) [Ratio]Ordered By: ED PROVIDER on 08-02-2024 Erythrocyte distribution width ratio 13.2 % 11.6-14.6 [facility] Estimated glomerular filtrat ion rate (GFR) AmericanOrdered By: Jacky Holland on 08-02-2024 Estimated glomerular filtration rate (GFR) 74 mL/min >60 [facility] Estimation of creatinine jeffery aranceOrdered By: Jacky Holland on 08-02-2024 Estimation of creatinine clearance 57.00 ml/min [facility] Glomerular filtration rate ( GFR) estimationOrdered By: Jacky Holland on 08-02-2024 Glomerular filtration rate (GFR) estimation 61 mL/min >60 [facility] Glucose measurementOrdered B y: Jacky Holland on 08-02-2024 Glucose measurement 260 mg/dL High 74-106 [facility] Hematocrit Auto (Bld) [Volum e fraction]Ordered By: ED PROVIDER on 08-02-2024 Automated blood hematocrit (percentage) 31.7 % Low 37-47 [facility] Hemoglobin measurementOrdere d By: ED PROVIDER on 08-02-2024 Hemoglobin measurement 10.0 g/dL Low 12.0-15.0 [facility] Immature granulocytes/100 WB C Auto (Bld)Ordered By: ED PROVIDER on 08-02-2024 Automated immature granulocyte percentage 0.600 % 0.0-0.9 [facility] Lymphocytes Auto (Unsp spec) [#/Vol]Ordered By: ED PROVIDER on 08-02-2024 Absolute lymphocyte count 0.92 X10^3/uL 0.83-4.51 [facility] Lymphocytes/100 WBC Auto (Un sp spec)Ordered By: ED PROVIDER on 08-02-2024 Automated lymphocyte count as percentage of total leukocytes 9.1 % Low 19-41 [facility] MCV (RBC) [Entitic vol]Order ed By: ED PROVIDER on 08-02-2024 MCV (mean corpuscular volume) determination 90.1 fL 81-99 [facility] Mean corpuscular hemoglobin (MCH) determinationOrdered By: ED PROVIDER on 08-02-2024 Mean corpuscular hemoglobin (MCH) determination 28.4 pg 27.0-32.0 [facility] Mean corpuscular hemoglobin concentration (MCHC) determinationOrdered By: ED PROVIDER on 08-02-2024 Mean corpuscular hemoglobin concentration (MCHC) determination 31.5 g/dL Low 32-36 [facility] Mean platelet volume determi nationOrdered By: ED PROVIDER on 08-02-2024 Mean platelet volume determination 10.1 fl 6.2-12.0 [facility] Monocyte percentageOrdered B y: ED PROVIDER on 08-02-2024 Monocyte percentage 6.3 % 0-10 [facility] Neutrophil percentageOrdered By: ED PROVIDER on 08-02-2024 Neutrophil percentage 83.4 % High 47-70 [facility] Nucleated red blood cell per centageOrdered By: ED PROVIDER on 08-02-2024 Nucleated red blood cell percentage 0 % 0-5 [facility] Platelet countOrdered By: ED PROVIDER on 08-02-2024 Platelet count 287 K/mm3 150-450 [facility] Potassium measurementOrdered By: Jacky Holland on 08-02-2024 Potassium measurement 4.4 mmol/L 3.5-5.1 [facility] RBC Auto (Bld) [#/Vol]Ordere d By: ED PROVIDER on 08-02-2024 Automated blood erythrocyte count 3.52 M/mm3 Low 4.2-5.4 [facility] Serum anion gap measurementO rdered By: Jacky Holland on 08-02-2024 Serum anion gap measurement 6 5-15 [facility] Sodium levelOrdered By: Jacky Holland on 08-02-2024 Sodium level 129 mmol/L Low 136-145 [facility] Tropinin I.cardiac panel Hig h sensitivity methodOrdered By: Jacky Holland on 08-02-2024 Serum or plasma cardiac troponin I panel by high sensitivity method 5 pg/mL 3.0-54.0 [facility] Urea nitrogen [Mass/Vol]Orde red By: Jacky Holland on 08-02-2024 Serum or plasma urea nitrogen measurement (mass/volume) 15 mg/dL 7-18 [facility] White blood cell (WBC) count Ordered By: ED PROVIDER on 08-02-2024 White blood cell (WBC) count 10.2 K/mm3 4.4-11.0 [facility] ALP [Catalytic activity/Vol] Ordered By: Billy Madera on 07-13-2024 Serum or plasma alkaline phosphatase measurement 110 U/L 45-117 [facility] ALT [Catalytic activity/Vol] Ordered By: Billy Madera on 07-13-2024 Serum or plasma alanine aminotransferase (ALT) measurement 17 U/L 13-56 [facility] Albumin [Mass/Vol]Ordered By : Billy Madera on 07-13-2024 Serum or plasma albumin measurement (mass/volume) 2.9 g/dL Low 3.2-5.0 [facility] Albumin to globulin ratioOrd ered By: Billy Madera on 07-13-2024 Albumin to globulin ratio 0.9 RATIO 0.9-2.4 [facility] Bilirubin, totalOrdered By: Billy Madera on 07-13-2024 Bilirubin, total 0.20 mg/dL 0.20-1.00 [facility] Blood urea nitrogen (BUN)/cr eatinine ratioOrdered By: Billy Madera on 07-13-2024 Blood urea nitrogen (BUN)/creatinine ratio 16.5 RATIO 10-20 [facility] Calcium [Mass/Vol]Ordered By : Billy Madera on 07-13-2024 Serum or plasma calcium measurement (mass/volume) 9.2 mg/dL 8.5-10.1 [facility] Carbon dioxide measurementOr dered By: Billy Madera on 07-13-2024 Carbon dioxide measurement 32.0 mmol/L 21.0-32.0 [facility] Chloride measurementOrdered By: Billy Madera on 07-13-2024 Chloride measurement 101 mmol/L 98-107 [facility] Creatinine [Mass/Vol]Ordered By: Billy Madera on 07-13-2024 Serum or plasma creatinine measurement (mass/volume) 1.09 mg/dL High 0.55-1.02 [facility] Erythrocyte distribution wid th (RBC) [Entitic vol]Ordered By: Billy Madera on 07-13-2024 Erythrocyte distribution width standard deviation 43.8 fl 35.1-43.9 [facility] Erythrocyte distribution wid th (RBC) [Ratio]Ordered By: Billy Madera on 07-13-2024 Erythrocyte distribution width ratio 13.2 % 11.6-14.6 [facility] Estimated glomerular filtrat ion rate (GFR) AmericanOrdered By: Billy Madera on 07-13-2024 Estimated glomerular filtration rate (GFR) 63 mL/min >60 [facility] Glomerular filtration rate ( GFR) estimationOrdered By: Billy Madera on 07-13-2024 Glomerular filtration rate (GFR) estimation 52 mL/min Low >60 [facility] Glucose measurementOrdered B y: Billy Madera on 07-13-2024 Glucose measurement 166 mg/dL High 74-106 [facility] HbA1c (Bld) [Mass fraction]O rdered By: Billy Madera on 07-13-2024 Hemoglobin A1c percentage 6.6 % High 3.8-5.6 [facility] Hematocrit Auto (Bld) [Volum e fraction]Ordered By: Billy Madera on 07-13-2024 Automated blood hematocrit (percentage) 31.5 % Low 37-47 [facility] Hemoglobin measurementOrdere d By: Billy Madera on 07-13-2024 Hemoglobin measurement 10.0 g/dL Low 12.0-15.0 [facility] MCV (RBC) [Entitic vol]Order ed By: Billy Madera on 07-13-2024 MCV (mean corpuscular volume) determination 90.8 fL 81-99 [facility] Mean corpuscular hemoglobin (MCH) determinationOrdered By: Billy Madera on 07-13-2024 Mean corpuscular hemoglobin (MCH) determination 28.8 pg 27.0-32.0 [facility] Mean corpuscular hemoglobin concentration (MCHC) determinationOrdered By: Billy Madera on 07-13-2024 Mean corpuscular hemoglobin concentration (MCHC) determination 31.7 g/dL Low 32-36 [facility] Mean platelet volume determi nationOrdered By: Billy Madera on 07-13-2024 Mean platelet volume determination 10.6 fl 6.2-12.0 [facility] No Panel InformationOrdered By: Billy Madera on 07-13-2024 10 U/L Low 15-37 [facility] Platelet countOrdered By: Evelia Madera on 07-13-2024 Platelet count 326 K/mm3 150-450 [facility] Potassium measurementOrdered By: Billy Madera on 07-13-2024 Potassium measurement 4.0 mmol/L 3.5-5.1 [facility] RBC Auto (Bld) [#/Vol]Ordere d By: Billy Madera on 07-13-2024 Automated blood erythrocyte count 3.47 M/mm3 Low 4.2-5.4 [facility] Serum anion gap measurementO rdered By: Billy Madera on 07-13-2024 Serum anion gap measurement 4 Low 5-15 [facility] Serum globulin measurementOr dered By: Billy Madera on 07-13-2024 Serum globulin measurement 3.1 g/dL 2.2-4.2 [facility] Sodium levelOrdered By: Reji Madera on 07-13-2024 Sodium level 137 mmol/L 136-145 [facility] Total proteinOrdered By: Kelby Madera on 07-13-2024 Total protein 6.0 g/dL Low 6.4-8.2 [facility] Urea nitrogen [Mass/Vol]Orde red By: Billy Madera on 07-13-2024 Serum or plasma urea nitrogen measurement (mass/volume) 18 mg/dL 7-18 [facility] White blood cell (WBC) count Ordered By: Billy Madera on 07-13-2024 White blood cell (WBC) count 11.3 K/mm3 High 4.4-11.0 [facility] Absolute neutrophil countOrd ered By: Pasha Thornton on 07-04-2024 Absolute neutrophil count 14.8 X10^3/uL High 2.0-7.7 [facility] Basophil percentageOrdered B y: Pasha Thornton on 07-04-2024 Basophil percentage 0.5 % 0-1 [facility] Blood urea nitrogen (BUN)/cr eatinine ratioOrdered By: Pasha Thornton on 07-04-2024 Blood urea nitrogen (BUN)/creatinine ratio 12.1 RATIO 10-20 [facility] Calcium [Mass/Vol]Ordered By : Pasha Thornton on 07-04-2024 Serum or plasma calcium measurement (mass/volume) 9.5 mg/dL 8.5-10.1 [facility] Carbon dioxide measurementOr dered By: Pasha Thornton on 07-04-2024 Carbon dioxide measurement 28.0 mmol/L 21.0-32.0 [facility] Chloride measurementOrdered By: Pasha Thornton on 07-04-2024 Chloride measurement 102 mmol/L 98-107 [facility] Creatinine [Mass/Vol]Ordered By: Pasha Thornton on 07-04-2024 Serum or plasma creatinine measurement (mass/volume) 1.16 mg/dL High 0.55-1.02 [facility] Eosinophil percentageOrdered By: Pasha Thornton on 07-04-2024 Eosinophil percentage 0.3 % 0-5 [facility] Erythrocyte distribution wid th (RBC) [Entitic vol]Ordered By: Pasha Thornton on 07-04-2024 Erythrocyte distribution width standard deviation 43.3 fl 35.1-43.9 [facility] Erythrocyte distribution wid th (RBC) [Ratio]Ordered By: Pasha Thornton on 07-04-2024 Erythrocyte distribution width ratio 13.2 % 11.6-14.6 [facility] Estimated glomerular filtrat ion rate (GFR) AmericanOrdered By: Pasha Thornton on 07-04-2024 Estimated glomerular filtration rate (GFR) 59 mL/min Low >60 [facility] Estimation of creatinine jeffery aranceOrdered By: Pasha Thornton on 07-04-2024 Estimation of creatinine clearance 47.49 ml/min [facility] Glomerular filtration rate ( GFR) estimationOrdered By: Pasha Thornton on 07-04-2024 Glomerular filtration rate (GFR) estimation 49 mL/min Low >60 [facility] Glucose measurementOrdered B y: Pashakahlil Stocktono on 07-04-2024 Glucose measurement 241 mg/dL High 74-106 [facility] Hematocrit Auto (Bld) [Volum e fraction]Ordered By: Pasha Thornton on 07-04-2024 Automated blood hematocrit (percentage) 35.2 % Low 37-47 [facility] Hemoglobin measurementOrdere d By: Pasha Thornton on 07-04-2024 Hemoglobin measurement 11.1 g/dL Low 12.0-15.0 [facility] Immature granulocytes/100 WB C Auto (Bld)Ordered By: Pasha Thornton on 07-04-2024 Automated immature granulocyte percentage 0.800 % 0.0-0.9 [facility] Lymphocytes Auto (Unsp spec) [#/Vol]Ordered By: Pasha Thornton on 07-04-2024 Absolute lymphocyte count 0.86 X10^3/uL 0.83-4.51 [facility] Lymphocytes/100 WBC Auto (Un sp spec)Ordered By: Pasha Thornton on 07-04-2024 Automated lymphocyte count as percentage of total leukocytes 5.2 % Low 19-41 [facility] MCV (RBC) [Entitic vol]Order ed By: Pasha Thornton on 07-04-2024 MCV (mean corpuscular volume) determination 91.9 fL 81-99 [facility] Mean corpuscular hemoglobin (MCH) determinationOrdered By: Pasha Thornton on 07-04-2024 Mean corpuscular hemoglobin (MCH) determination 29.0 pg 27.0-32.0 [facility] Mean corpuscular hemoglobin concentration (MCHC) determinationOrdered By: Pasha Thornton on 07-04-2024 Mean corpuscular hemoglobin concentration (MCHC) determination 31.5 g/dL Low 32-36 [facility] Mean platelet volume determi nationOrdered By: Pasha Thornton on 07-04-2024 Mean platelet volume determination 10.0 fl 6.2-12.0 [facility] Monocyte percentageOrdered B y: Pasha Thornton on 07-04-2024 Monocyte percentage 3.9 % 0-10 [facility] Neutrophil percentageOrdered By: Pasha Thornton on 07-04-2024 Neutrophil percentage 89.3 % High 47-70 [facility] Nucleated red blood cell per centageOrdered By: Pasha Thornton on 07-04-2024 Nucleated red blood cell percentage 0 % 0-5 [facility] Platelet countOrdered By: Ug o Thornton on 07-04-2024 Platelet count 363 K/mm3 150-450 [facility] Potassium measurementOrdered By: Pasha Thornton on 07-04-2024 Potassium measurement 4.7 mmol/L 3.5-5.1 [facility] RBC Auto (Bld) [#/Vol]Ordere d By: Pasha Thornton on 07-04-2024 Automated blood erythrocyte count 3.83 M/mm3 Low 4.2-5.4 [facility] Serum anion gap measurementO rdered By: Pasha Thornton on 07-04-2024 Serum anion gap measurement 6 5-15 [facility] Sodium levelOrdered By: Pasha Thornton on 07-04-2024 Sodium level 136 mmol/L 136-145 [facility] Troponin IOrdered By: Pashakahlil Velasquez llo on 07-04-2024 Troponin I 5 pg/mL 3.0-54.0 [facility] Urea nitrogen [Mass/Vol]Orde red By: Pasha Thornton on 07-04-2024 Serum or plasma urea nitrogen measurement (mass/volume) 14 mg/dL 7-18 [facility] White blood cell (WBC) count Ordered By: Pasha Thornton on 07-04-2024 White blood cell (WBC) count 16.6 K/mm3 High 4.4-11.0 [facility] Absolute lymphocyte countOrd ered By: Serg Barnes on 12-08-2023 Lymphocytes Auto (Unsp spec) [#/Vol] 1.37 10*3/uL 0.83-4.51 [facility] Automated lymphocyte count a s percentage of total leukocytesOrdered By: Serg Barnes on 12-08-2023 Lymphocytes/100 WBC Auto (Unsp spec) 8.8 % 19-41 [facility] Basophil percentageOrdered B y: Serg Barnes on 12-08-2023 Basophil percentage >100 SEEN /hpf 0-5 [facility] Basophil percentage 10.1 g/dL 12.0-15.0 [facility] Basophil percentage 119 mg/dL 74-106 [facility] Basophil percentage 6.8 g/dL 6.4-8.2 [facility] Basophil percentage 0.40 mg/dL 0.20-1.00 [facility] Basophil percentage 132 mmol/L 136-145 [facility] Basophil percentage 96 mmol/L 98-107 [facility] Basophils (Bld) [#/Vol] 15.6 10*3/uL 4.4-11.0 [facility] Basophils (Bld) [#/Vol] 12.7 10*3/uL 2.0-7.7 [facility] Basophils/100 WBC (Bld) 81.5 % 47-70 [facility] Basophils/100 WBC (Bld) 6.2 % 0-10 [facility] Basophils/100 WBC (Bld) 1.9 % 0-5 [facility] Basophils/100 WBC (Bld) 0.6 % 0-1 [facility] Basophil percentage 4.1 mmol/L 3.5-5.1 [facility] Basophil percentageOrdered B y: Brittney Gonzalez on 12-08-2023 Basophil percentage 10.5 g/dL 12.0-15.0 [facility] Basophil percentage 73 mg/dL 74-106 [facility] Basophil percentage 6.7 g/dL 6.4-8.2 [facility] Basophil percentage 0.30 mg/dL 0.20-1.00 [facility] Basophil percentage 134 mmol/L 136-145 [facility] Basophil percentage 99 mmol/L 98-107 [facility] Basophils (Bld) [#/Vol] 12.6 10*3/uL 4.4-11.0 [facility] Bilirubin Test strip Ql (U)O rdered By: Serg Barnes on 12-08-2023 Bilirubin Ql (U) Negative Negative [facility] Determination of erythrocyte mean corpuscular volume (MCV)Ordered By: Serg Barnes on 12-08-2023 MCV (RBC) [Entitic vol] 91.7 fL 81-99 [facility] Determination of erythrocyte mean corpuscular volume (MCV)Ordered By: Brittney Gonzalez on 12-08-2023 MCV (RBC) [Entitic vol] 91.2 fL 81-99 [facility] Erythrocyte distribution wid th ratioOrdered By: Serg Barnes on 12-08-2023 Erythrocyte distribution width (RBC) [Ratio] 12.2 % 11.6-14.6 [facility] Erythrocyte distribution wid th ratioOrdered By: Brittney Gonzalez on 12-08-2023 Erythrocyte distribution width (RBC) [Ratio] 12.1 % 11.6-14.6 [facility] Erythrocyte distribution wid th standard deviationOrdered By: Serg Barnes on 12-08-2023 Erythrocyte distribution width (RBC) [Entitic vol] 40.8 fL 35.1-43.9 [facility] Erythrocyte distribution wid th standard deviationOrdered By: Brittney Gonzalez on 12-08-2023 Erythrocyte distribution width (RBC) [Entitic vol] 40.4 fL 35.1-43.9 [facility] Hematocrit Auto (Bld) [Volum e fraction]Ordered By: Serg Barnes on 12-08-2023 Hematocrit (Bld) [Volume fraction] 32.2 % 37-47 [facility] Hematocrit Auto (Bld) [Volum e fraction]Ordered By: Brittney Gonzalez on 12-08-2023 Hematocrit (Bld) [Volume fraction] 33.2 % 37-47 [facility] Immature granulocytes/100 WB C Auto (Bld)Ordered By: Serg Barnes on 12-08-2023 Immature granulocytes/100 WBC (Bld) 1.000 % 0.0-0.9 [facility] Ketones Test strip Ql (U)Ord ered By: Serg Barnes on 12-08-2023 Ketones Ql (U) Negative Negative [facility] Mucus LM Ql (Urine sed)Order ed By: Serg Barnes on 12-08-2023 Mucus Ql (Urine sed) 0 SEEN /hpf [facility] Nitrite Test strip Ql (U)Ord ered By: Serg Barnes on 12-08-2023 Nitrite Ql (U) Positive Negative [facility] No Panel InformationOrdered By: Serg Barnes on 12-08-2023 0 SEEN /hpf 0-5 [facility] 31.4 g/dL 32-36 [facility] 418 K/mm3 150-450 [facility] 9.6 fl 6.2-12.0 [facility] 0 % 0-5 [facility] 73 mL/min >60 [facility] 88 mL/min >60 [facility] 66.91 ml/min [facility] 12.2 RATIO 10-20 [facility] 3.6 g/dL 2.2-4.2 [facility] 10 U/L 13-75 [facility] 30.0 mmol/L 21.0-32.0 [facility] 28.8 pg 27.0-32.0 [facility] 0.9 RATIO 0.9-2.4 [facility] 126 U/L 45-117 [facility] 19 U/L 13-56 [facility] No Panel InformationOrdered By: Brittney Gonzalez on 12-08-2023 31.6 g/dL 32-36 [facility] 444 K/mm3 150-450 [facility] 10.2 fl 6.2-12.0 [facility] 79 mL/min >60 [facility] 96 mL/min >60 [facility] 14.4 RATIO 10-20 [facility] 3.5 g/dL 2.2-4.2 [facility] 32.0 mmol/L 21.0-32.0 [facility] Protein Test strip Ql (U)Ord ered By: Serg Barnes on 12-08-2023 Protein Ql (U) 15 mg/dl Negative [facility] RBC Auto (Bld) [#/Vol]Ordere d By: Serg Barnes on 12-08-2023 RBC (Bld) [#/Vol] 3.51 10*6/uL 4.2-5.4 [facility] RBC Auto (Bld) [#/Vol]Ordere d By: Brittney Gonzalez on 12-08-2023 RBC (Bld) [#/Vol] 3.64 10*6/uL 4.2-5.4 [facility] Serum or plasma calcium lexy urement (mass/volume)Ordered By: Serg Barnes on 12-08-2023 Calcium [Mass/Vol] 9.2 mg/dL 8.5-10.1 [facility] Serum or plasma calcium lexy urement (mass/volume)Ordered By: Brittney Gonzalez on 12-08-2023 Calcium [Mass/Vol] 9.8 mg/dL 8.5-10.1 [facility] Serum or plasma creatinine m easurement (mass/volume)Ordered By: Serg Barnes on 12-08-2023 Creatinine [Mass/Vol] 0.82 mg/dL 0.55-1.02 [facility] Serum or plasma creatinine m easurement (mass/volume)Ordered By: Brittney Gonzalez on 12-08-2023 Creatinine [Mass/Vol] 0.76 mg/dL 0.55-1.02 [facility] Serum or plasma urea nitroge n measurement (mass/volume)Ordered By: Serg Barnes on 12-08-2023 Urea nitrogen [Mass/Vol] 10 mg/dL - [facility] Serum or plasma urea nitroge n measurement (mass/volume)Ordered By: Brittney oGnzalez on 12-08-2023 Urea nitrogen [Mass/Vol] 11 mg/dL 7- [facility] Squamous epithelial cells de tection in urine sediment by light microscopyOrdered By: Serg Barnes on 12-08-2023 Epithelial cells.squamous LM Ql (Urine sed) 5-10 SEEN /hpf 5-10 [facility] Thin prep Papanicolaou smear with manual screeningOrdered By: Serg Barnes on 12-08-2023 Thin prep Papanicolaou smear with manual screening 11 U/L - [facility] Thin prep Papanicolaou smear with manual screening 6 5-15 [facility] Thin prep Papanicolaou smear with manual screening 3.2 g/dL 3.2-5.0 [facility] Thin prep Papanicolaou smear with manual screeningOrdered By: Brittney Gonzalez on 12-08-2023 Thin prep Papanicolaou smear with manual screening 19 U/L 15- [facility] Thin prep Papanicolaou smear with manual screening 3 5-15 [facility] Urine blood detectionOrdered By: Serg Barnse on 12-08-2023 RBC Ql (U) 10 /ul Negative [facility] Urine clarityOrdered By: Nini Barnes on 12-08-2023 Clarity (U) Clear Clear [facility] Urine color determinationOrd ered By: Serg Barnes on 12-08-2023 Color (U) Yellow Yellow [facility] Urine glucose detectionOrder ed By: Serg Barnes on 12-08-2023 Glucose Ql (U) Normal mg/dl Normal [facility] Urine leukocyte esterase det ection by dipstickOrdered By: Serg Barnes on 12-08-2023 Leukocyte esterase Test strip Ql (U) 500 /ul Negative [facility] Urine pHOrdered By: Serg butts on 12-08-2023 pH (U) 6.0 [pH] 5.0 - 8.0 [facility] Urine sediment bacteria coun t by microscopy (number/high power field)Ordered By: Serg Barnes on 12-08-2023 Bacteria LM.HPF (Urine sed) [#/Area] 2 /[HPF] None Seen [facility] Urine specific gravity measu rementOrdered By: Serg Barnes on 12-08-2023 Specific gravity (U) [Rel density] 1.010 1.002-1.030 [facility] Urine urobilinogen measureme ntOrdered By: Serg Barnes on 12-08-2023 Urobilinogen Ql (U) Normal mg/dl Normal [facility] Bacteria identified Cx Nom ( U)Ordered By: Brittney Gonzalez on 12-01-2023 Culture, urine ESBL Escherichia coli [facility] Basophil percentageOrdered B y: Brittney Gonzalez on 12-01-2023 Basophil percentage 25-50 SEEN /hpf 0-5 [facility] Bilirubin Test strip Ql (U)O rdered By: Brittney Gonzalez on 12-01-2023 Bilirubin Ql (U) Negative Negative [facility] Ketones Test strip Ql (U)Ord ered By: Brittney Gonzalez on 12-01-2023 Ketones Ql (U) Negative Negative [facility] Mucus LM Ql (Urine sed)Order ed By: Brittney Gonzalez on 12-01-2023 Mucus Ql (Urine sed) RARE /hpf [facility] Nitrite Test strip Ql (U)Ord ered By: Brittney Gonzalez on 12-01-2023 Nitrite Ql (U) Negative Negative [facility] No Panel InformationOrdered By: Brittney Gonzalez on 12-01-2023 0-5 SEEN /hpf 0-5 [facility] Protein Test strip Ql (U)Ord ered By: Brittney Gonzalez on 12-01-2023 Protein Ql (U) Negative Negative [facility] Squamous epithelial cells de tection in urine sediment by light microscopyOrdered By: Brittney Gonzalez on 12-01-2023 Epithelial cells.squamous LM Ql (Urine sed) 0-5 SEEN /hpf 5-10 [facility] Urine blood detectionOrdered By: Brittney Gonzalez on 12-01-2023 RBC Ql (U) 25 /ul Negative [facility] Urine clarityOrdered By: Delfin Gonzalez on 12-01-2023 Clarity (U) Sl. Cloudy Clear [facility] Urine color determinationOrd ered By: Brittney Gonzalez on 12-01-2023 Color (U) Yellow Yellow [facility] Urine glucose detectionOrder ed By: Brittney Gonzalez on 12-01-2023 Glucose Ql (U) 100 mg/dl Normal [facility] Urine leukocyte esterase det ection by dipstickOrdered By: Brittney Gonzalez on 12-01-2023 Leukocyte esterase Test strip Ql (U) 500 /ul Negative [facility] Urine pHOrdered By: Brittney parr on 12-01-2023 pH (U) 6.0 [pH] 5.0 - 8.0 [facility] Urine sediment bacteria coun t by microscopy (number/high power field)Ordered By: Brittney Gonzalez on 12-01-2023 Bacteria LM.HPF (Urine sed) [#/Area] 2 /[HPF] None Seen [facility] Urine specific gravity measu rementOrdered By: Brittney Gonzalez on 12-01-2023 Specific gravity (U) [Rel density] 1.010 1.002-1.030 [facility] Urine urobilinogen measureme ntOrdered By: Brittney Gonzalez on 12-01-2023 Urobilinogen Ql (U) Normal mg/dl Normal [facility] Bacteria identified Cx Nom ( U)Ordered By: Brittney Gonzalez on 11-19-2023 Culture, urine ESBL Escherichia coli [facility] Basophil percentageOrdered B y: Brittney Gonzalez on 11-19-2023 Basophil percentage 5-10 SEEN /hpf 0-5 [facility] Bilirubin Test strip Ql (U)O rdered By: Brittney Gonzalez on 11-19-2023 Bilirubin Ql (U) Negative Negative [facility] Ketones Test strip Ql (U)Ord ered By: Brittney Gonzalez on 11-19-2023 Ketones Ql (U) Negative Negative [facility] Mucus LM Ql (Urine sed)Order ed By: Brittney Gonzalez on 11-19-2023 Mucus Ql (Urine sed) 0 SEEN /hpf [facility] Nitrite Test strip Ql (U)Ord ered By: Brittney Gonzaelz on 11-19-2023 Nitrite Ql (U) Positive Negative [facility] No Panel InformationOrdered By: Brittney Gonzalez on 11-19-2023 0-5 SEEN /hpf 0-5 [facility] Protein Test strip Ql (U)Ord ered By: Brittney Gonzalez on 11-19-2023 Protein Ql (U) Negative Negative [facility] Squamous epithelial cells de tection in urine sediment by light microscopyOrdered By: Brittney Gonzalez on 11-19-2023 Epithelial cells.squamous LM Ql (Urine sed) 0-5 SEEN /hpf 5-10 [facility] Urine blood detectionOrdered By: Brittney Gonzalez on 11-19-2023 RBC Ql (U) 250 /ul Negative [facility] Urine clarityOrdered By: Delfin Gonzalez on 11-19-2023 Clarity (U) Clear Clear [facility] Urine color determinationOrd ered By: Brittney Gonzalez on 11-19-2023 Color (U) Yellow Yellow [facility] Urine glucose detectionOrder ed By: Brittney Gonzalez on 11-19-2023 Glucose Ql (U) Normal mg/dl Normal [facility] Urine leukocyte esterase det ection by dipstickOrdered By: Brittney Gonzalez on 11-19-2023 Leukocyte esterase Test strip Ql (U) 500 /ul Negative [facility] Urine pHOrdered By: Brittney parr on 11-19-2023 pH (U) 7.0 [pH] 5.0 - 8.0 [facility] Urine sediment bacteria coun t by microscopy (number/high power field)Ordered By: Brittney Gonzalez on 11-19-2023 Bacteria LM.HPF (Urine sed) [#/Area] 3 /[HPF] None Seen [facility] Urine specific gravity measu rementOrdered By: Brittney Gonzalez on 11-19-2023 Specific gravity (U) [Rel density] 1.005 1.002-1.030 [facility] Urine urobilinogen measureme ntOrdered By: Brittney Gonzalez on 11-19-2023 Urobilinogen Ql (U) Normal mg/dl Normal [facility] Basophil percentageOrdered B y: Brittney Gonzalez on 11-17-2023 Basophil percentage 10.4 g/dL 12.0-15.0 [facility] Basophil percentage 100 mg/dL 74-106 [facility] Basophil percentage 6.2 g/dL 6.4-8.2 [facility] Basophil percentage 0.30 mg/dL 0.20-1.00 [facility] Basophil percentage 135 mmol/L 136-145 [facility] Basophil percentage 3.9 mmol/L 3.5-5.1 [facility] Basophil percentage 99 mmol/L 98-107 [facility] Basophils (Bld) [#/Vol] 10.5 10*3/uL 4.4-11.0 [facility] Determination of erythrocyte mean corpuscular volume (MCV)Ordered By: Brittney Gonzalez on 11-17-2023 MCV (RBC) [Entitic vol] 91.6 fL 81-99 [facility] Erythrocyte distribution wid th ratioOrdered By: Brittney Gonzalez on 11-17-2023 Erythrocyte distribution width (RBC) [Ratio] 12.7 % 11.6-14.6 [facility] Erythrocyte distribution wid th standard deviationOrdered By: Brittney Gonzalez on 11-17-2023 Erythrocyte distribution width (RBC) [Entitic vol] 42.6 fL 35.1-43.9 [facility] Hematocrit Auto (Bld) [Volum e fraction]Ordered By: Brittney Gonzalez on 11-17-2023 Hematocrit (Bld) [Volume fraction] 32.9 % 37-47 [facility] No Panel InformationOrdered By: Brittney Gonzalez on 11-17-2023 29.0 pg 27.0-32.0 [facility] 31.6 g/dL 32-36 [facility] 314 K/mm3 150-450 [facility] 10.9 fl 6.2-12.0 [facility] 93 mL/min >60 [facility] 112 mL/min >60 [facility] 18.1 RATIO 10-20 [facility] 3.1 g/dL 2.2-4.2 [facility] 1.0 RATIO 0.9-2.4 [facility] 99 U/L 45-117 [facility] 21 U/L 13-56 [facility] 32.0 mmol/L 21.0-32.0 [facility] RBC Auto (Bld) [#/Vol]Ordere d By: Brittney Gonzalez on 11-17-2023 RBC (Bld) [#/Vol] 3.59 10*6/uL 4.2-5.4 [facility] Serum or plasma calcium lexy urement (mass/volume)Ordered By: Brittney Gonzalez on 11-17-2023 Calcium [Mass/Vol] 9.4 mg/dL 8.5-10.1 [facility] Serum or plasma creatinine m easurement (mass/volume)Ordered By: Brittney Gonzalez on 11-17-2023 Creatinine [Mass/Vol] 0.66 mg/dL 0.55-1.02 [facility] Serum or plasma urea nitroge n measurement (mass/volume)Ordered By: Brittney Gonzalez on 11-17-2023 Urea nitrogen [Mass/Vol] 12 mg/dL 7-18 [facility] Thin prep Papanicolaou smear with manual screeningOrdered By: Brittney Gonzalez on 11-17-2023 Thin prep Papanicolaou smear with manual screening 3.1 g/dL 3.2-5.0 [facility] Thin prep Papanicolaou smear with manual screening 13 U/L 15-37 [facility] Thin prep Papanicolaou smear with manual screening 4 5-15 [facility] Whole blood hemoglobin A1c/t otal hemoglobin ratio (mass fraction)Ordered By: Brittney Gonzalez on 11-04-2023 HbA1c (Bld) [Mass fraction] 7.8 % 3.8-5.6 [facility] Basophil percentageOrdered B y: Brittney Gonzalez on 10-27-2023 Basophil percentage 10.1 g/dL 12.0-15.0 [facility] Basophil percentage 156 mg/dL 74-106 [facility] Basophil percentage 6.3 g/dL 6.4-8.2 [facility] Basophil percentage 0.40 mg/dL 0.20-1.00 [facility] Basophil percentage 137 mmol/L 136-145 [facility] Basophil percentage 3.8 mmol/L 3.5-5.1 [facility] Basophil percentage 101 mmol/L 98-107 [facility] Basophils (Bld) [#/Vol] 11.5 10*3/uL 4.4-11.0 [facility] Determination of erythrocyte mean corpuscular volume (MCV)Ordered By: Brittney Gonzalez on 10-27-2023 MCV (RBC) [Entitic vol] 91.1 fL 81-99 [facility] Erythrocyte distribution wid th ratioOrdered By: Brittney Gonzalez on 10-27-2023 Erythrocyte distribution width (RBC) [Ratio] 13.6 % 11.6-14.6 [facility] Erythrocyte distribution wid th standard deviationOrdered By: Brittney Gonzalez on 10-27-2023 Erythrocyte distribution width (RBC) [Entitic vol] 45.0 fL 35.1-43.9 [facility] Hematocrit Auto (Bld) [Volum e fraction]Ordered By: Brittney Gonzalez on 10-27-2023 Hematocrit (Bld) [Volume fraction] 31.8 % 37-47 [facility] No Panel InformationOrdered By: Brittney Gonzalez on 10-27-2023 28.9 pg 27.0-32.0 [facility] 31.8 g/dL 32-36 [facility] 307 K/mm3 150-450 [facility] 10.7 fl 6.2-12.0 [facility] 88 mL/min >60 [facility] 106 mL/min >60 [facility] 14.3 RATIO 10-20 [facility] 3.2 g/dL 2.2-4.2 [facility] 1.0 RATIO 0.9-2.4 [facility] 133 U/L 45-117 [facility] 22 U/L 13-56 [facility] 31.0 mmol/L 21.0-32.0 [facility] RBC Auto (Bld) [#/Vol]Ordere d By: Brittney Gonzalez on 10-27-2023 RBC (Bld) [#/Vol] 3.49 10*6/uL 4.2-5.4 [facility] Serum or plasma calcium lexy urement (mass/volume)Ordered By: Brittney Gonzalez on 10-27-2023 Calcium [Mass/Vol] 9.8 mg/dL 8.5-10.1 [facility] Serum or plasma creatinine m easurement (mass/volume)Ordered By: Brittney Gonzalez on 10-27-2023 Creatinine [Mass/Vol] 0.70 mg/dL 0.55-1.02 [facility] Serum or plasma urea nitroge n measurement (mass/volume)Ordered By: Brittney Gonzalez on 10-27-2023 Urea nitrogen [Mass/Vol] 10 mg/dL 7-18 [facility] Thin prep Papanicolaou smear with manual screeningOrdered By: Brittney Gonzalez on 10-27-2023 Thin prep Papanicolaou smear with manual screening 3.1 g/dL 3.2-5.0 [facility] Thin prep Papanicolaou smear with manual screening 11 U/L 15-37 [facility] Thin prep Papanicolaou smear with manual screening 5 5-15 [facility] Basophil percentageOrdered B y: Brittney Gonzalez on 10-20-2023 Basophil percentage 155 mg/dL <200 [facility] Basophil percentage 82 mg/dL <199 [facility] No Panel InformationOrdered By: Brittney Gonzalez on 10-20-2023 92 mg/dL >40 [facility] 47 mg/dL 0-130 [facility] 16 mg/dL 5-40 [facility] 506 pg/mL 211-911 [facility] 27.0 ng/mL [facility] Basophil percentageOrdered B y: Brittney Gonzalez on 10-06-2023 Basophil percentage 11.2 g/dL 12.0-15.0 [facility] Basophil percentage 98 mg/dL 74-106 [facility] Basophil percentage 6.4 g/dL 6.4-8.2 [facility] Basophil percentage 0.30 mg/dL 0.20-1.00 [facility] Basophil percentage 136 mmol/L 136-145 [facility] Basophil percentage 4.3 mmol/L 3.5-5.1 [facility] Basophil percentage 100 mmol/L 98-107 [facility] Basophils (Bld) [#/Vol] 11.7 10*3/uL 4.4-11.0 [facility] Determination of erythrocyte mean corpuscular volume (MCV)Ordered By: Brittney Gonzalez on 10-06-2023 MCV (RBC) [Entitic vol] 90.1 fL 81-99 [facility] Erythrocyte distribution wid th ratioOrdered By: Brittney Gonzalez on 10-06-2023 Erythrocyte distribution width (RBC) [Ratio] 13.3 % 11.6-14.6 [facility] Erythrocyte distribution wid th standard deviationOrdered By: Brittney Gonzalez on 10-06-2023 Erythrocyte distribution width (RBC) [Entitic vol] 43.8 fL 35.1-43.9 [facility] Hematocrit Auto (Bld) [Volum e fraction]Ordered By: Brittney Gonzalez on 10-06-2023 Hematocrit (Bld) [Volume fraction] 35.5 % 37-47 [facility] No Panel InformationOrdered By: Brittney Gonzalez on 10-06-2023 28.4 pg 27.0-32.0 [facility] 31.5 g/dL 32-36 [facility] 293 K/mm3 150-450 [facility] 10.6 fl 6.2-12.0 [facility] 78 mL/min >60 [facility] 95 mL/min >60 [facility] 14.3 RATIO 10-20 [facility] 3.1 g/dL 2.2-4.2 [facility] 1.1 RATIO 0.9-2.4 [facility] 102 U/L 45-117 [facility] 27 U/L 13-56 [facility] 32.0 mmol/L 21.0-32.0 [facility] RBC Auto (Bld) [#/Vol]Ordere d By: Brittnye Gonzalez on 10-06-2023 RBC (Bld) [#/Vol] 3.94 10*6/uL 4.2-5.4 [facility] Serum or plasma calcium lexy urement (mass/volume)Ordered By: Brittney Gonzalez on 10-06-2023 Calcium [Mass/Vol] 9.8 mg/dL 8.5-10.1 [facility] Serum or plasma creatinine m easurement (mass/volume)Ordered By: Brittney Gonzalez on 10-06-2023 Creatinine [Mass/Vol] 0.77 mg/dL 0.55-1.02 [facility] Serum or plasma urea nitroge n measurement (mass/volume)Ordered By: Brittney Gonzalez on 10-06-2023 Urea nitrogen [Mass/Vol] 11 mg/dL 7-18 [facility] Thin prep Papanicolaou smear with manual screeningOrdered By: Brittney Gonzalez on 10-06-2023 Thin prep Papanicolaou smear with manual screening 3.3 g/dL 3.2-5.0 [facility] Thin prep Papanicolaou smear with manual screening 17 U/L 15-37 [facility] Thin prep Papanicolaou smear with manual screening 4 5-15 [facility] Whole blood hemoglobin A1c/t otal hemoglobin ratio (mass fraction)Ordered By: Brittney Gonzalez on 10-06-2023 HbA1c (Bld) [Mass fraction] 7.7 % 3.8-5.6 [facility] Basophil percentageOrdered B y: Ethan Samuels on 09-29-2023 Basophil percentage 11.0 g/dL 12.0-15.0 [facility] Basophil percentage 96 mg/dL 74-106 [facility] Basophil percentage 6.5 g/dL 6.4-8.2 [facility] Basophil percentage 0.30 mg/dL 0.20-1.00 [facility] Basophil percentage 134 mmol/L 136-145 [facility] Basophil percentage 4.1 mmol/L 3.5-5.1 [facility] Basophil percentage 99 mmol/L 98-107 [facility] Basophils (Bld) [#/Vol] 12.9 10*3/uL 4.4-11.0 [facility] Determination of erythrocyte mean corpuscular volume (MCV)Ordered By: Ethan Samuels on 09-29-2023 MCV (RBC) [Entitic vol] 90.3 fL 81-99 [facility] Erythrocyte distribution wid th ratioOrdered By: Ethan Samuels on 09-29-2023 Erythrocyte distribution width (RBC) [Ratio] 13.3 % 11.6-14.6 [facility] Erythrocyte distribution wid th standard deviationOrdered By: Ethan Samuels on 09-29-2023 Erythrocyte distribution width (RBC) [Entitic vol] 44.1 fL 35.1-43.9 [facility] Hematocrit Auto (Bld) [Volum e fraction]Ordered By: Ethan Samuels on 09-29-2023 Hematocrit (Bld) [Volume fraction] 34.3 % 37-47 [facility] No Panel InformationOrdered By: Ethan Samuels on 09-29-2023 28.9 pg 27.0-32.0 [facility] 32.1 g/dL 32-36 [facility] 371 K/mm3 150-450 [facility] 10.2 fl 6.2-12.0 [facility] 91 mL/min >60 [facility] 110 mL/min >60 [facility] 17.7 RATIO 10-20 [facility] 3.3 g/dL 2.2-4.2 [facility] 1.0 RATIO 0.9-2.4 [facility] 104 U/L 45-117 [facility] 22 U/L 13-56 [facility] 29.0 mmol/L 21.0-32.0 [facility] RBC Auto (Bld) [#/Vol]Ordere d By: Ethan Samuels on 09-29-2023 RBC (Bld) [#/Vol] 3.80 10*6/uL 4.2-5.4 [facility] Serum or plasma calcium lexy urement (mass/volume)Ordered By: Ethan Samuels on 09-29-2023 Calcium [Mass/Vol] 9.4 mg/dL 8.5-10.1 [facility] Serum or plasma creatinine m easurement (mass/volume)Ordered By: Ethan Samuels on 09-29-2023 Creatinine [Mass/Vol] 0.68 mg/dL 0.55-1.02 [facility] Serum or plasma urea nitroge n measurement (mass/volume)Ordered By: Ethan Samuels on 09-29-2023 Urea nitrogen [Mass/Vol] 12 mg/dL 7-18 [facility] Thin prep Papanicolaou smear with manual screeningOrdered By: Ethan Samuels on 09-29-2023 Thin prep Papanicolaou smear with manual screening 3.2 g/dL 3.2-5.0 [facility] Thin prep Papanicolaou smear with manual screening 11 U/L 15-37 [facility] Thin prep Papanicolaou smear with manual screening 6 5-15 [facility] Basophil percentageOrdered B y: Ethan Samuels on 09-08-2023 Basophil percentage 10.6 g/dL 12.0-15.0 [facility] Basophil percentage 139 mg/dL 74-106 [facility] Basophil percentage 6.1 g/dL 6.4-8.2 [facility] Basophil percentage 0.30 mg/dL 0.20-1.00 [facility] Basophil percentage 134 mmol/L 136-145 [facility] Basophil percentage 3.8 mmol/L 3.5-5.1 [facility] Basophil percentage 98 mmol/L 98-107 [facility] Basophils (Bld) [#/Vol] 8.9 10*3/uL 4.4-11.0 [facility] Determination of erythrocyte mean corpuscular volume (MCV)Ordered By: Ethan Samuels on 09-08-2023 MCV (RBC) [Entitic vol] 88.7 fL 81-99 [facility] Erythrocyte distribution wid th ratioOrdered By: Ethan Samuels on 09-08-2023 Erythrocyte distribution width (RBC) [Ratio] 13.3 % 11.6-14.6 [facility] Erythrocyte distribution wid th standard deviationOrdered By: Ethan Samuels on 09-08-2023 Erythrocyte distribution width (RBC) [Entitic vol] 43.1 fL 35.1-43.9 [facility] Hematocrit Auto (Bld) [Volum e fraction]Ordered By: Ethan Samuels on 09-08-2023 Hematocrit (Bld) [Volume fraction] 33.1 % 37-47 [facility] No Panel InformationOrdered By: Ethan Samuels on 09-08-2023 28.4 pg 27.0-32.0 [facility] 32.0 g/dL 32-36 [facility] 270 K/mm3 150-450 [facility] 102 mL/min >60 [facility] 124 mL/min >60 [facility] 18.0 RATIO 10-20 [facility] 3.1 g/dL 2.2-4.2 [facility] 1.0 RATIO 0.9-2.4 [facility] 106 U/L 45-117 [facility] 26 U/L 13-56 [facility] 30.0 mmol/L 21.0-32.0 [facility] Platelet mean volume Mark-Ec ker (Bld) [Entitic vol]Ordered By: Ethan Samuels on 09-08-2023 Platelet mean volume (Bld) [Entitic vol] 10.0 fL 6.2-12.0 [facility] RBC Auto (Bld) [#/Vol]Ordere d By: Ethan Samuels on 09-08-2023 RBC (Bld) [#/Vol] 3.73 10*6/uL 4.2-5.4 [facility] [place] or plasma calcium lexy urement (mass/volume)Ordered By: Ethan Samuels on 09-08-2023 Calcium [Mass/Vol] 9.1 mg/dL 8.5-10.1 [facility] [place] or plasma creatinine m easurement (mass/volume)Ordered By: Ethan Samuels on 09-08-2023 Creatinine [Mass/Vol] 0.61 mg/dL 0.55-1.02 [facility] Serum or plasma urea nitroge n measurement (mass/volume)Ordered By: Ethan Samuels on 09-08-2023 Urea nitrogen [Mass/Vol] 11 mg/dL 7-18 [facility] Thin prep Papanicolaou smear with manual screeningOrdered By: Ethan Samuels on 09-08-2023 Thin prep Papanicolaou smear with manual screening 3.0 g/dL 3.2-5.0 [facility] Thin prep Papanicolaou smear with manual screening 9 U/L 15-37 [facility] Thin prep Papanicolaou smear with manual screening 6 5-15 [facility] Whole blood hemoglobin A1c/t otal hemoglobin ratio (mass fraction)Ordered By: Ethan Samuels on 09-08-2023 HbA1c (Bld) [Mass fraction] 7.7 % 3.8-5.6 [facility] Thin prep Papanicolaou smear with manual screeningOrdered By: Jorge Lee on 08-26-2023 Thin prep Papanicolaou smear with manual screening 338 mg/dL 74-106 [facility] Absolute lymphocyte countOrd ered By: Jorge Lee on 08-23-2023 Lymphocytes Auto (Unsp spec) [#/Vol] 0.99 10*3/uL 0.83-4.51 [facility] Basophil percentageOrdered B y: Jorge Lee on 08-23-2023 Basophil percentage 199 mg/dL 74-106 [facility] Basophil percentage 134 mmol/L 136-145 [facility] Basophil percentage 4.6 mmol/L 3.5-5.1 [facility] Basophil percentage 96 mmol/L 98-107 [facility] Basophils (Bld) [#/Vol] 12.9 10*3/uL 4.4-11.0 [facility] Basophils (Bld) [#/Vol] 11.3 10*3/uL 2.0-7.7 [facility] Basophils/100 WBC (Bld) 87.7 % 47-70 [facility] Basophils/100 WBC (Bld) 0.0 % 0-5 [facility] Basophils/100 WBC (Bld) 0.2 % 0-1 [facility] Blood erythrocytes count (nu mber/volume)Ordered By: Jorge Lee on 08-23-2023 RBC (Bld) [#/Vol] 4.16 10*6/uL 4.2-5.4 [facility] Blood hemoglobin measurement (mass/volume)Ordered By: Jorge Lee on 08-23-2023 Hemoglobin (Bld) [Mass/Vol] 11.5 g/dL 12.0-15.0 [facility] Blood lymphocytes/100 leukoc ytesOrdered By: Jorge Lee on 08-23-2023 Lymphocytes/100 WBC (Bld) 7.7 % 19-41 [facility] Blood monocytes/100 leukocyt esOrdered By: Jorge Lee on 08-23-2023 Monocytes/100 WBC (Bld) 3.5 % 0-10 [facility] Blood platelet mean volumeOr dered By: Jorge Lee on 08-23-2023 Platelet mean volume (Bld) [Entitic vol] 10.3 fL 6.2-12.0 [facility] Determination of erythrocyte mean corpuscular volume (MCV)Ordered By: Jorge Lee on 08-23-2023 MCV (RBC) [Entitic vol] 86.5 fL 81-99 [facility] Hematocrit Auto (Bld) [Volum e fraction]Ordered By: Jorge Lee on 08-23-2023 Hematocrit (Bld) [Volume fraction] 36.0 % 37-47 [facility] MCHC Auto (RBC) [Mass/Vol]Or dered By: Jorge Lee on 08-23-2023 MCHC (RBC) [Mass/Vol] 31.9 g/dL 32-36 [facility] No Panel InformationOrdered By: Jorge Lee on 08-23-2023 27.6 pg 27.0-32.0 [facility] 12.9 % 11.6-14.6 [facility] 41.1 fl 35.1-43.9 [facility] 0.900 % 0.0-0.9 [facility] 0 % 0-5 [facility] 85 mL/min >60 [facility] 103 mL/min >60 [facility] 70.18 ml/min [facility] 15.3 RATIO 10-20 [facility] 31.0 mmol/L 21.0-32.0 [facility] Platelets bldOrdered By: Shruti Lee on 08-23-2023 Platelets (Bld) [#/Vol] 371 10*3/uL 150-450 [facility] Serum or plasma calcium lexy urement (mass/volume)Ordered By: Jorge Lee on 08-23-2023 Calcium [Mass/Vol] 9.5 mg/dL 8.5-10.1 [facility] Serum or plasma creatinine m easurement (mass/volume)Ordered By: Jorge Lee on 08-23-2023 Creatinine [Mass/Vol] 0.72 mg/dL 0.55-1.02 [facility] Serum or plasma urea nitroge n measurement (mass/volume)Ordered By: Jorge Lee on 08-23-2023 Urea nitrogen [Mass/Vol] 11 mg/dL 7-18 [facility] Thin prep Papanicolaou smear with manual screeningOrdered By: Jorge Lee on 08-23-2023 Thin prep Papanicolaou smear with manual screening 7 5-15 [facility] Urine Legionella pneumophila antigen detectionOrdered By: Jorge Lee on 08-23-2023 L. pneumophila Ag Ql (U) [facility] L. pneumophila Ag Ql (U) [facility] Absolute lymphocyte countOrd ered By: Sera Aguilar on 08-22-2023 Lymphocytes Auto (Unsp spec) [#/Vol] 2.84 10*3/uL 0.83-4.51 [facility] Basophil percentageOrdered B y: Sera Aguilar on 08-22-2023 Basophil percentage 1.7 mmol/L 0.4-2.0 [facility] Basophil percentage 205 mg/dL 74-106 [facility] Basophil percentage 128 mmol/L 136-145 [facility] Basophil percentage 3.9 mmol/L 3.5-5.1 [facility] Basophil percentage 91 mmol/L 98-107 [facility] Basophils (Bld) [#/Vol] 13.6 10*3/uL 4.4-11.0 [facility] Basophils (Bld) [#/Vol] 9.6 10*3/uL 2.0-7.7 [facility] Basophils/100 WBC (Bld) 70.7 % 47-70 [facility] Basophils/100 WBC (Bld) 1.5 % 0-5 [facility] Basophils/100 WBC (Bld) 0.7 % 0-1 [facility] Blood erythrocytes count (nu mber/volume)Ordered By: Sera Aguilar on 08-22-2023 RBC (Bld) [#/Vol] 3.98 10*6/uL 4.2-5.4 [facility] Blood hemoglobin measurement (mass/volume)Ordered By: Sera Aguilar on 08-22-2023 Hemoglobin (Bld) [Mass/Vol] 11.2 g/dL 12.0-15.0 [facility] Blood lymphocytes/100 leukoc ytesOrdered By: Sera Aguilar on 08-22-2023 Lymphocytes/100 WBC (Bld) 20.9 % 19-41 [facility] Blood monocytes/100 leukocyt esOrdered By: Sera Aguilar on 08-22-2023 Monocytes/100 WBC (Bld) 5.7 % 0-10 [facility] Blood platelet mean volumeOr dered By: Sera Aguilar on 08-22-2023 Platelet mean volume (Bld) [Entitic vol] 10.4 fL 6.2-12.0 [facility] Determination of erythrocyte mean corpuscular volume (MCV)Ordered By: Sera Aguilar on 08-22-2023 MCV (RBC) [Entitic vol] 87.9 fL 81-99 [facility] Hematocrit Auto (Bld) [Volum e fraction]Ordered By: Sera Aguilar on 08-22-2023 Hematocrit (Bld) [Volume fraction] 35.0 % 37-47 [facility] MCHC Auto (RBC) [Mass/Vol]Or dered By: Sera Aguilar on 08-22-2023 MCHC (RBC) [Mass/Vol] 32.0 g/dL 32-36 [facility] No Panel InformationOrdered By: Sera Aguilar on 08-22-2023 No growth in 5 days. [facility] No growth in 5 days. [facility] RSV [facility] 28.1 pg 27.0-32.0 [facility] 12.6 % 11.6-14.6 [facility] 40.6 fl 35.1-43.9 [facility] 0.500 % 0.0-0.9 [facility] 0 % 0-5 [facility] 86 mL/min >60 [facility] 104 mL/min >60 [facility] 71.15 ml/min [facility] 12.6 RATIO 10-20 [facility] 10 pg/mL 3.0-54.0 [facility] 30.0 mmol/L 21.0-32.0 [facility] 102.0 pg/mL 0-100 [facility] RSV [facility] Platelets bldOrdered By: Alisia Aguilar on 08-22-2023 Platelets (Bld) [#/Vol] 324 10*3/uL 150-450 [facility] Serum or plasma calcium lexy urement (mass/volume)Ordered By: Sera Aguilar on 08-22-2023 Calcium [Mass/Vol] 8.9 mg/dL 8.5-10.1 [facility] Serum or plasma creatinine m easurement (mass/volume)Ordered By: Sera Aguilar on 08-22-2023 Creatinine [Mass/Vol] 0.71 mg/dL 0.55-1.02 [facility] Serum or plasma urea nitroge n measurement (mass/volume)Ordered By: Sera Aguilar on 08-22-2023 Urea nitrogen [Mass/Vol] 9 mg/dL 7-18 [facility] Thin prep Papanicolaou smear with manual screeningOrdered By: Sera Aguilar on 08-22-2023 Thin prep Papanicolaou smear with manual screening 7 5-15 [facility] Basophil percentageOrdered B y: Ethan Samuels on 08-10-2023 Basophil percentage 70 mg/dL 74-106 [facility] Basophil percentage 6.7 g/dL 6.4-8.2 [facility] Basophil percentage 0.40 mg/dL 0.20-1.00 [facility] Basophil percentage 135 mmol/L 136-145 [facility] Basophil percentage 3.9 mmol/L 3.5-5.1 [facility] Basophil percentage 99 mmol/L 98-107 [facility] Basophils (Bld) [#/Vol] 9.8 10*3/uL 4.4-11.0 [facility] Blood erythrocytes count (nu mber/volume)Ordered By: Ethan Samuels on 08-10-2023 RBC (Bld) [#/Vol] 3.82 10*6/uL 4.2-5.4 [facility] Blood hemoglobin measurement (mass/volume)Ordered By: Ethan Samuels on 08-10-2023 Hemoglobin (Bld) [Mass/Vol] 10.8 g/dL 12.0-15.0 [facility] Blood platelet mean volumeOr dered By: Ethan Samuels on 08-10-2023 Platelet mean volume (Bld) [Entitic vol] 10.9 fL 6.2-12.0 [facility] Determination of erythrocyte mean corpuscular volume (MCV)Ordered By: Ethan Samuels on 08-10-2023 MCV (RBC) [Entitic vol] 91.1 fL 81-99 [facility] Hematocrit Auto (Bld) [Volum e fraction]Ordered By: Ethan Samuels on 08-10-2023 Hematocrit (Bld) [Volume fraction] 34.8 % 37-47 [facility] MCHC Auto (RBC) [Mass/Vol]Or dered By: Ethan Samuels on 08-10-2023 MCHC (RBC) [Mass/Vol] 31.0 g/dL 32-36 [facility] No Panel InformationOrdered By: Ethan Samuels on 08-10-2023 28.3 pg 27.0-32.0 [facility] 13.0 % 11.6-14.6 [facility] 43.0 fl 35.1-43.9 [facility] 81 mL/min >60 [facility] 98 mL/min >60 [facility] 20.1 RATIO 10-20 [facility] 3.2 g/dL 2.2-4.2 [facility] 124 U/L 45-117 [facility] 15 U/L 13-56 [facility] 32.0 mmol/L 21.0-32.0 [facility] Platelets bldOrdered By: Margoth Samuels on 08-10-2023 Platelets (Bld) [#/Vol] 325 10*3/uL 150-450 [facility] Serum or plasma albumin lexy urement (mass/volume)Ordered By: Ethan Samuels on 08-10-2023 Albumin [Mass/Vol] 3.5 g/dL 3.2-5.0 [facility] Serum or plasma albumin/glob ulin mass ratioOrdered By: Ethan Samuels on 08-10-2023 Albumin/Globulin [Mass ratio] 1.1 {ratio} 0.9-2.4 [facility] Serum or plasma calcium lexy urement (mass/volume)Ordered By: Ethan Samuels on 08-10-2023 Calcium [Mass/Vol] 9.7 mg/dL 8.5-10.1 [facility] Serum or plasma creatinine m easurement (mass/volume)Ordered By: Ethan Samuels on 08-10-2023 Creatinine [Mass/Vol] 0.74 mg/dL 0.55-1.02 [facility] Serum or plasma urea nitroge n measurement (mass/volume)Ordered By: Ethan Samuels on 08-10-2023 Urea nitrogen [Mass/Vol] 15 mg/dL 7-18 [facility] Thin prep Papanicolaou smear with manual screeningOrdered By: Ethan Samuels on 08-10-2023 Thin prep Papanicolaou smear with manual screening 8 U/L 15-37 [facility] Thin prep Papanicolaou smear with manual screening 4 5-15 [facility] Basophil percentageOrdered B y: Ethan Samuels on 07-20-2023 Basophil percentage 69 mg/dL 74-106 [facility] Basophil percentage 6.2 g/dL 6.4-8.2 [facility] Basophil percentage 0.20 mg/dL 0.20-1.00 [facility] Basophil percentage 135 mmol/L 136-145 [facility] Basophil percentage 3.8 mmol/L 3.5-5.1 [facility] Basophil percentage 97 mmol/L 98-107 [facility] Basophils (Bld) [#/Vol] 6.7 10*3/uL 4.4-11.0 [facility] Blood erythrocytes count (nu mber/volume)Ordered By: Ethan Samuels on 07-20-2023 RBC (Bld) [#/Vol] 3.58 10*6/uL 4.2-5.4 [facility] Blood hemoglobin measurement (mass/volume)Ordered By: Ethan Samuels on 07-20-2023 Hemoglobin (Bld) [Mass/Vol] 10.3 g/dL 12.0-15.0 [facility] Blood platelet mean volumeOr dered By: Ethan Samuels on 07-20-2023 Platelet mean volume (Bld) [Entitic vol] 11.3 fL 6.2-12.0 [facility] Determination of erythrocyte mean corpuscular volume (MCV)Ordered By: Ethan Samuels on 07-20-2023 MCV (RBC) [Entitic vol] 91.9 fL 81-99 [facility] Hematocrit Auto (Bld) [Volum e fraction]Ordered By: Ethan Samuels on 07-20-2023 Hematocrit (Bld) [Volume fraction] 32.9 % 37-47 [facility] MCHC Auto (RBC) [Mass/Vol]Or dered By: Ethan Samuels on 07-20-2023 MCHC (RBC) [Mass/Vol] 31.3 g/dL 32-36 [facility] No Panel InformationOrdered By: Ethan Samuels on 07-20-2023 28.8 pg 27.0-32.0 [facility] 12.8 % 11.6-14.6 [facility] 43.2 fl 35.1-43.9 [facility] 77 mL/min >60 [facility] 93 mL/min >60 [facility] 12.8 RATIO 10-20 [facility] 3.0 g/dL 2.2-4.2 [facility] 131 U/L 45-117 [facility] 18 U/L 13-56 [facility] 31.0 mmol/L 21.0-32.0 [facility] Platelets bldOrdered By: Margoth Samuels on 07-20-2023 Platelets (Bld) [#/Vol] 242 10*3/uL 150-450 [facility] Serum or plasma albumin lexy urement (mass/volume)Ordered By: Ethan Samuels on 07-20-2023 Albumin [Mass/Vol] 3.2 g/dL 3.2-5.0 [facility] Serum or plasma albumin/glob ulin mass ratioOrdered By: Ethan Samuels on 07-20-2023 Albumin/Globulin [Mass ratio] 1.1 {ratio} 0.9-2.4 [facility] Serum or plasma calcium lexy urement (mass/volume)Ordered By: Ethan Samuels on 07-20-2023 Calcium [Mass/Vol] 8.5 mg/dL 8.5-10.1 [facility] Serum or plasma creatinine m easurement (mass/volume)Ordered By: Ethan Samuels on 07-20-2023 Creatinine [Mass/Vol] 0.78 mg/dL 0.55-1.02 [facility] Serum or plasma urea nitroge n measurement (mass/volume)Ordered By: Ethan Samuels on 07-20-2023 Urea nitrogen [Mass/Vol] 10 mg/dL 7-18 [facility] Thin prep Papanicolaou smear with manual screeningOrdered By: Ethan Samuels on 07-20-2023 Thin prep Papanicolaou smear with manual screening 11 U/L 15-37 [facility] Thin prep Papanicolaou smear with manual screening 7 5-15 [facility] Basophil percentageOrdered B y: Ethan Samuels on 07-14-2023 Basophil percentage 134 mg/dL 74-106 [facility] Basophil percentage 134 mmol/L 136-145 [facility] Basophil percentage 3.7 mmol/L 3.5-5.1 [facility] Basophil percentage 97 mmol/L 98-107 [facility] No Panel InformationOrdered By: Ethan Samuels on 07-14-2023 85 mL/min >60 [facility] 103 mL/min >60 [facility] 11.2 RATIO 10-20 [facility] 31.0 mmol/L 21.0-32.0 [facility] Serum or plasma calcium lexy urement (mass/volume)Ordered By: Ethan Samuels on 07-14-2023 Calcium [Mass/Vol] 9.1 mg/dL 8.5-10.1 [facility] Serum or plasma creatinine m easurement (mass/volume)Ordered By: Ethan Samuels on 07-14-2023 Creatinine [Mass/Vol] 0.72 mg/dL 0.55-1.02 [facility] Serum or plasma urea nitroge n measurement (mass/volume)Ordered By: Ethan Samuels on 07-14-2023 Urea nitrogen [Mass/Vol] 8 mg/dL 7-18 [facility] Thin prep Papanicolaou smear with manual screeningOrdered By: Ethan Samuels on 07-14-2023 Thin prep Papanicolaou smear with manual screening 6 5-15 [facility] Basophil percentageOrdered B y: Ethan Samuels on 06-29-2023 Basophil percentage 129 mg/dL 74-106 [facility] Basophil percentage 6.1 g/dL 6.4-8.2 [facility] Basophil percentage 0.30 mg/dL 0.20-1.00 [facility] Basophil percentage 137 mmol/L 136-145 [facility] Basophil percentage 3.7 mmol/L 3.5-5.1 [facility] Basophil percentage 99 mmol/L 98-107 [facility] Basophils (Bld) [#/Vol] 8.1 10*3/uL 4.4-11.0 [facility] Blood erythrocytes count (nu mber/volume)Ordered By: Ethan Samuels on 06-29-2023 RBC (Bld) [#/Vol] 3.34 10*6/uL 4.2-5.4 [facility] Blood hemoglobin measurement (mass/volume)Ordered By: Ethan Samuels on 06-29-2023 Hemoglobin (Bld) [Mass/Vol] 9.7 g/dL 12.0-15.0 [facility] Blood platelet mean volumeOr dered By: Ethan Samuels on 06-29-2023 Platelet mean volume (Bld) [Entitic vol] 11.2 fL 6.2-12.0 [facility] Determination of erythrocyte mean corpuscular volume (MCV)Ordered By: Ethan Samuels on 06-29-2023 MCV (RBC) [Entitic vol] 94.3 fL 81-99 [facility] Hematocrit Auto (Bld) [Volum e fraction]Ordered By: Ethan Samuels on 06-29-2023 Hematocrit (Bld) [Volume fraction] 31.5 % 37-47 [facility] MCHC Auto (RBC) [Mass/Vol]Or dered By: Ethan Samuels on 06-29-2023 MCHC (RBC) [Mass/Vol] 30.8 g/dL 32-36 [facility] No Panel InformationOrdered By: Ethan Samuels on 11-21-2023 29.0 pg 27.0-32.0 [facility] 13.0 % 11.6-14.6 [facility] 44.5 fl 35.1-43.9 [facility] 88 mL/min >60 [facility] 106 mL/min >60 [facility] 18.6 RATIO 10-20 [facility] 3.0 g/dL 2.2-4.2 [facility] 139 U/L 45-117 [facility] 17 U/L 13-56 [facility] 33.0 mmol/L 21.0-32.0 [facility] Platelets bldOrdered By: Margoth Samuels on 06-29-2023 Platelets (Bld) [#/Vol] 286 10*3/uL 150-450 [facility] Serum or plasma albumin lexy urement (mass/volume)Ordered By: Ethan Samuels on 06-29-2023 Albumin [Mass/Vol] 3.1 g/dL 3.2-5.0 [facility] Serum or plasma albumin/glob ulin mass ratioOrdered By: Ethan Samuels on 06-29-2023 Albumin/Globulin [Mass ratio] 1.0 {ratio} 0.9-2.4 [facility] Serum or plasma calcium lexy urement (mass/volume)Ordered By: Ethan Samuels on 06-29-2023 Calcium [Mass/Vol] 8.8 mg/dL 8.5-10.1 [facility] Serum or plasma creatinine m easurement (mass/volume)Ordered By: Ethan Samuels on 06-29-2023 Creatinine [Mass/Vol] 0.70 mg/dL 0.55-1.02 [facility] Serum or plasma urea nitroge n measurement (mass/volume)Ordered By: Ethan Samuels on 06-29-2023 Urea nitrogen [Mass/Vol] 13 mg/dL 7-18 [facility] Thin prep Papanicolaou smear with manual screeningOrdered By: Ethan Samuels on 06-29-2023 Thin prep Papanicolaou smear with manual screening 10 U/L 15-37 [facility] Thin prep Papanicolaou smear with manual screening 5 5-15 [facility] Basophil percentageOrdered B y: Ethan Samuels on 06-09-2023 Basophil percentage 151 mg/dL 74-106 [facility] Basophil percentage 138 mmol/L 136-145 [facility] Basophil percentage 3.9 mmol/L 3.5-5.1 [facility] Basophil percentage 105 mmol/L 98-107 [facility] Basophils (Bld) [#/Vol] 10.5 10*3/uL 4.4-11.0 [facility] Blood erythrocytes count (nu mber/volume)Ordered By: Ethan Samuels on 06-09-2023 RBC (Bld) [#/Vol] 3.49 10*6/uL 4.2-5.4 [facility] Blood hemoglobin measurement (mass/volume)Ordered By: Ethan Samuels on 06-09-2023 Hemoglobin (Bld) [Mass/Vol] 10.0 g/dL 12.0-15.0 [facility] Blood platelet mean volumeOr dered By: Ethan Samuels on 06-09-2023 Platelet mean volume (Bld) [Entitic vol] 11.8 fL 6.2-12.0 [facility] Determination of erythrocyte mean corpuscular volume (MCV)Ordered By: Ethan Samuels on 06-09-2023 MCV (RBC) [Entitic vol] 94.3 fL 81-99 [facility] Hematocrit Auto (Bld) [Volum e fraction]Ordered By: Ethan Samuels on 06-09-2023 Hematocrit (Bld) [Volume fraction] 32.9 % 37-47 [facility] MCHC Auto (RBC) [Mass/Vol]Or dered By: Ethan Samuels on 06-09-2023 MCHC (RBC) [Mass/Vol] 30.4 g/dL 32-36 [facility] No Panel InformationOrdered By: Ethan Samuels on 06-09-2023 28.7 pg 27.0-32.0 [facility] 12.6 % 11.6-14.6 [facility] 42.9 fl 35.1-43.9 [facility] 81 mL/min >60 [facility] 98 mL/min >60 [facility] 12.0 RATIO 10-20 [facility] 30.0 mmol/L 21.0-32.0 [facility] Platelets bldOrdered By: Margoth Samuels on 11-01-2023 Platelets (Bld) [#/Vol] 322 10*3/uL 150-450 [facility] Serum or plasma calcium lexy urement (mass/volume)Ordered By: Ethan Samuels on 06-09-2023 Calcium [Mass/Vol] 8.8 mg/dL 8.5-10.1 [facility] Serum or plasma creatinine m easurement (mass/volume)Ordered By: Ethan Samuels on 06-09-2023 Creatinine [Mass/Vol] 0.75 mg/dL 0.55-1.02 [facility] Serum or plasma urea nitroge n measurement (mass/volume)Ordered By: Ethan Samuels on 06-09-2023 Urea nitrogen [Mass/Vol] 9 mg/dL 7-18 [facility] Thin prep Papanicolaou smear with manual screeningOrdered By: Ethan Samuels on 06-09-2023 Thin prep Papanicolaou smear with manual screening 3 5-15 [facility] Basophil percentageOrdered B y: Ethan Samuels on 06-08-2023 Basophil percentage 153 mg/dL 74-106 [facility] Basophil percentage 6.0 g/dL 6.4-8.2 [facility] Basophil percentage 0.30 mg/dL 0.20-1.00 [facility] Basophil percentage 139 mmol/L 136-145 [facility] Basophil percentage 3.7 mmol/L 3.5-5.1 [facility] Basophil percentage 105 mmol/L 98-107 [facility] Basophils (Bld) [#/Vol] 10.9 10*3/uL 4.4-11.0 [facility] Blood erythrocytes count (nu mber/volume)Ordered By: Ethan Samuels on 06-08-2023 RBC (Bld) [#/Vol] 3.61 10*6/uL 4.2-5.4 [facility] Blood hemoglobin measurement (mass/volume)Ordered By: Ethan Samuels on 06-08-2023 Hemoglobin (Bld) [Mass/Vol] 10.3 g/dL 12.0-15.0 [facility] Blood platelet mean volumeOr dered By: Ethan Samuels on 06-08-2023 Platelet mean volume (Bld) [Entitic vol] 11.3 fL 6.2-12.0 [facility] Determination of erythrocyte mean corpuscular volume (MCV)Ordered By: Ethan Samuels on 06-08-2023 MCV (RBC) [Entitic vol] 94.2 fL 81-99 [facility] Direct bilirubinOrdered By: Ethan Samuels on 06-08-2023 Bilirubin.direct [Mass/Vol] 0.10 mg/dL 0.00-0.30 [facility] Hematocrit Auto (Bld) [Volum e fraction]Ordered By: Ethan Samuels on 06-08-2023 Hematocrit (Bld) [Volume fraction] 34.0 % 37-47 [facility] MCHC Auto (RBC) [Mass/Vol]Or dered By: Ethan Samuels on 06-08-2023 MCHC (RBC) [Mass/Vol] 30.3 g/dL 32-36 [facility] No Panel InformationOrdered By: Ethan Samuels on 06-08-2023 28.5 pg 27.0-32.0 [facility] 12.4 % 11.6-14.6 [facility] 42.6 fl 35.1-43.9 [facility] 75 mL/min >60 [facility] 91 mL/min >60 [facility] 12.5 RATIO 10-20 [facility] 3.2 g/dL 2.2-4.2 [facility] 109 U/L 45-117 [facility] 35 U/L 13-56 [facility] 33.0 mmol/L 21.0-32.0 [facility] Platelets bldOrdered By: Margoth Samuels on 06-08-2023 Platelets (Bld) [#/Vol] 338 10*3/uL 150-450 [facility] Serum or plasma albumin lexy urement (mass/volume)Ordered By: Ethan Samuels on 06-08-2023 Albumin [Mass/Vol] 2.8 g/dL 3.2-5.0 [facility] Serum or plasma albumin/glob ulin mass ratioOrdered By: Ethan Samuels on 06-08-2023 Albumin/Globulin [Mass ratio] 0.9 {ratio} 0.9-2.4 [facility] Serum or plasma calcium lexy urement (mass/volume)Ordered By: Ethan Samuels on 06-08-2023 Calcium [Mass/Vol] 8.8 mg/dL 8.5-10.1 [facility] Serum or plasma creatinine m easurement (mass/volume)Ordered By: Ethan Samuels on 06-08-2023 Creatinine [Mass/Vol] 0.80 mg/dL 0.55-1.02 [facility] Serum or plasma urea nitroge n measurement (mass/volume)Ordered By: Ethan Samuels on 06-08-2023 Urea nitrogen [Mass/Vol] 10 mg/dL 7-18 [facility] Thin prep Papanicolaou smear with manual screeningOrdered By: Ethan Samuels on 06-08-2023 Thin prep Papanicolaou smear with manual screening 25 U/L 15-37 [facility] Thin prep Papanicolaou smear with manual screening 1 5-15 [facility] Whole blood hemoglobin A1c/t otal hemoglobin ratio (mass fraction)Ordered By: Ethan Samuels on 06-08-2023 HbA1c (Bld) [Mass fraction] 8.9 % 3.8-5.6 [facility] Absolute lymphocyte countOrd ered By: Enid Hernandez on 06-04-2023 Lymphocytes Auto (Unsp spec) [#/Vol] 2.98 10*3/uL 0.83-4.51 [facility] Basophil percentageOrdered B y: Enid Hernandez on 06-04-2023 Basophil percentage 90 mg/dL 74-106 [facility] Basophil percentage 6.8 g/dL 6.4-8.2 [facility] Basophil percentage 0.40 mg/dL 0.20-1.00 [facility] Basophil percentage 136 mmol/L 136-145 [facility] Basophil percentage 3.9 mmol/L 3.5-5.1 [facility] Basophil percentage 104 mmol/L 98-107 [facility] Basophils (Bld) [#/Vol] 15.8 10*3/uL 4.4-11.0 [facility] Basophils (Bld) [#/Vol] 11.3 10*3/uL 2.0-7.7 [facility] Basophils/100 WBC (Bld) 71.7 % 47-70 [facility] Basophils/100 WBC (Bld) 1.0 % 0-5 [facility] Basophils/100 WBC (Bld) 0.3 % 0-1 [facility] Blood erythrocytes count (nu mber/volume)Ordered By: Enid Hernandez on 06-04-2023 RBC (Bld) [#/Vol] 4.13 10*6/uL 4.2-5.4 [facility] Blood hemoglobin measurement (mass/volume)Ordered By: Enid Hernandez on 06-04-2023 Hemoglobin (Bld) [Mass/Vol] 11.8 g/dL 12.0-15.0 [facility] Blood lymphocytes/100 leukoc ytesOrdered By: Enid Hernandez on 06-04-2023 Lymphocytes/100 WBC (Bld) 18.9 % 19-41 [facility] Blood monocytes/100 leukocyt esOrdered By: Enid Hernandez on 06-04-2023 Monocytes/100 WBC (Bld) 7.2 % 0-10 [facility] Blood platelet mean volumeOr dered By: Enid Hernandez on 06-04-2023 Platelet mean volume (Bld) [Entitic vol] 10.6 fL 6.2-12.0 [facility] Determination of erythrocyte mean corpuscular volume (MCV)Ordered By: Enid Hernandez on 06-04-2023 MCV (RBC) [Entitic vol] 94.4 fL 81-99 [facility] Glucose Glucometer (dC) [M ass/Vol]Ordered By: Endi Hernandez on 06-04-2023 Glucose [Mass/Vol] 235 mg/dL 74-106 [facility] Hematocrit Auto (Bld) [Volum e fraction]Ordered By: Enid Hernandez on 06-04-2023 Hematocrit (Bld) [Volume fraction] 39.0 % 37-47 [facility] MCHC Auto (RBC) [Mass/Vol]Or dered By: Enid Hernandez on 06-04-2023 MCHC (RBC) [Mass/Vol] 30.3 g/dL 32-36 [facility] No Panel InformationOrdered By: Enid Hernandez on 06-04-2023 28.6 pg 27.0-32.0 [facility] 12.6 % 11.6-14.6 [facility] 43.3 fl 35.1-43.9 [facility] 0.900 % 0.0-0.9 [facility] 0 % 0-5 [facility] 60 mL/min >60 [facility] 72 mL/min >60 [facility] 39.73 ml/min [facility] 39.9 RATIO 10-20 [facility] 3.5 g/dL 2.2-4.2 [facility] 111 U/L 45-117 [facility] 40 U/L 13-56 [facility] 27.0 mmol/L 21.0-32.0 [facility] Platelets bldOrdered By: Ghada Hernandez on 06-04-2023 Platelets (Bld) [#/Vol] 373 10*3/uL 150-450 [facility] Serum or plasma albumin lexy urement (mass/volume)Ordered By: Enid Hernandez on 06-04-2023 Albumin [Mass/Vol] 3.3 g/dL 3.2-5.0 [facility] Serum or plasma albumin/glob ulin mass ratioOrdered By: Enid Hernandez on 06-04-2023 Albumin/Globulin [Mass ratio] 0.9 {ratio} 0.9-2.4 [facility] Serum or plasma calcium lexy urement (mass/volume)Ordered By: Enid Hernandez on 06-04-2023 Calcium [Mass/Vol] 8.9 mg/dL 8.5-10.1 [facility] Serum or plasma creatinine m easurement (mass/volume)Ordered By: Enid Hernandez on 06-04-2023 Creatinine [Mass/Vol] 0.98 mg/dL 0.55-1.02 [facility] Serum or plasma urea nitroge n measurement (mass/volume)Ordered By: Enid Hernandez on 06-04-2023 Urea nitrogen [Mass/Vol] 39 mg/dL 7-18 [facility] Thin prep Papanicolaou smear with manual screeningOrdered By: Enid Hernandez on 06-04-2023 Thin prep Papanicolaou smear with manual screening 19 U/L 15-37 [facility] Thin prep Papanicolaou smear with manual screening 5 5-15 [facility] Assessment of wrist artery p atency prior to arterial punctureOrdered By: Nico Sweet on 05-31-2023 Arterial patency Wrist artery --pre arterial puncture N/A [facility] Bacteria identified Respirat ory culture Nom (Unsp spec)Ordered By: Nico Sweet on 05-31-2023 Microbial respiratory culture Presumptive C albicans [facility] Microbial respiratory culture Presumptive C albicans [facility] Base excessOrdered By: Magnus Sweet on 05-31-2023 Base excess Calc (BldV) [Moles/Vol] 0 mmol/L -2-2 [facility] Basophil percentageOrdered B y: Nico Sweet on 05-31-2023 Basophil percentage 3.2 mg/dL 2.5-4.9 [facility] Basophil percentage 25.3 mmol/L 22- [facility] Basophils/100 WBC (Bld) 92 % 95-99 [facility] CO2 (BldA) [Partial pressure ]Ordered By: Nico Sweet on 05-31-2023 CO2 (Bld) [Partial pressure] 42.3 mm[Hg] 35-45 [facility] Gram stain for investigation of transfusion reactionOrdered By: Nico Sweet on 05-31-2023 Microscopic observation Gram stain Nom (Unsp spec) [facility] Microscopic observation Gram stain Nom (Unsp spec) [facility] No Panel InformationOrdered By: Nico Sweet on 05-31-2023 2.0 mg/dL 1.6-2.6 [facility] ART [facility] L Radial [facility] AC [facility] Adult Vent [facility] 450.[address] [facility] 14 [facility] 40.0 [facility] 5 [facility] 27 mmol/L [facility] Oxygen (BldA) [Partial press ure]Ordered By: Nico Sweet on 05-31-2023 Oxygen (Bld) [Partial pressure] 65 mmHG 75-100 [facility] pH measurementOrdered By: Belen Sweet on 05-31-2023 pH (Unsp spec) 7.38 [pH] 7.35-7.45 [facility] Absolute lymphocyte countOrd ered By: Jacky Holland on 05-30-2023 Lymphocytes Auto (Unsp spec) [#/Vol] 1.80 10*3/uL 0.83-4.51 [facility] Absolute lymphocyte countOrd ered By: Kimberly Armstrong on 05-30-2023 Lymphocytes Auto (Unsp spec) [#/Vol] 1.71 10*3/uL 0.83-4.51 [facility] Assessment of wrist artery p atency prior to arterial punctureOrdered By: Nico Sweet on 05-30-2023 Arterial patency Wrist artery --pre arterial puncture N/A [facility] Base excessOrdered By: Magnus Sweet on 05-30-2023 Base excess Calc (BldV) [Moles/Vol] -3 mmol/L -2-2 [facility] Basophil percentageOrdered B y: Nico Sweet on 05-30-2023 Basophil percentage 25.5 mmol/L 22-26 [facility] Basophils/100 WBC (Bld) 100 % 95-99 [facility] Basophil percentageOrdered B y: Jacky Holland on 05-30-2023 Basophil percentage 201 mg/dL 74-106 [facility] Basophil percentage 139 mmol/L 136-145 [facility] Basophil percentage 3.5 mmol/L 3.5-5.1 [facility] Basophil percentage 102 mmol/L 98-107 [facility] Basophil percentage 113 mg/dL <199 [facility] Basophils (Bld) [#/Vol] 12.4 10*3/uL 4.4-11.0 [facility] Basophils (Bld) [#/Vol] 9.5 10*3/uL 2.0-7.7 [facility] Basophils/100 WBC (Bld) 76.7 % 47-70 [facility] Basophils/100 WBC (Bld) 1.4 % 0-5 [facility] Basophils/100 WBC (Bld) 0.8 % 0-1 [facility] Basophil percentageOrdered B y: Kimberly Armstrong on 05-30-2023 Basophil percentage 177 mg/dL 74-106 [facility] Basophil percentage 141 mmol/L 136-145 [facility] Basophil percentage 3.7 mmol/L 3.5-5.1 [facility] Basophil percentage 105 mmol/L 98-107 [facility] Basophils (Bld) [#/Vol] 13.5 10*3/uL 4.4-11.0 [facility] Basophils (Bld) [#/Vol] 10.7 10*3/uL 2.0-7.7 [facility] Basophils/100 WBC (Bld) 78.9 % 47-70 [facility] Basophils/100 WBC (Bld) 0.3 % 0-5 [facility] Basophils/100 WBC (Bld) 0.4 % 0-1 [facility] Blood erythrocytes count (nu mber/volume)Ordered By: Jacky Holland on 05-30-2023 RBC (Bld) [#/Vol] 3.78 10*6/uL 4.2-5.4 [facility] Blood erythrocytes count (nu mber/volume)Ordered By: Kimberly Armstrong on 05-30-2023 RBC (Bld) [#/Vol] 3.79 10*6/uL 4.2-5.4 [facility] Blood hemoglobin measurement (mass/volume)Ordered By: Jacky Holland on 05-30-2023 Hemoglobin (Bld) [Mass/Vol] 10.9 g/dL 12.0-15.0 [facility] Blood hemoglobin measurement (mass/volume)Ordered By: Kimberly Armstrong on 05-30-2023 Hemoglobin (Bld) [Mass/Vol] 11.0 g/dL 12.0-15.0 [facility] Blood lymphocytes/100 leukoc ytesOrdered By: Jacky Holland on 05-30-2023 Lymphocytes/100 WBC (Bld) 14.6 % 19-41 [facility] Blood lymphocytes/100 leukoc ytesOrdered By: Kimberly Armstrong on 05-30-2023 Lymphocytes/100 WBC (Bld) 12.7 % -41 [facility] Blood monocytes/100 leukocyt esOrdered By: Jacky Holland on 05-30-2023 Monocytes/100 WBC (Bld) 5.4 % 0-10 [facility] Blood monocytes/100 leukocyt esOrdered By: Kimberly Armstrong on 05-30-2023 Monocytes/100 WBC (Bld) 6.4 % 0-10 [facility] Blood platelet mean volumeOr dered By: Kimberly Armstrong on 05-30-2023 Platelet mean volume (Bld) [Entitic vol] 10.6 fL 6.2-12.0 [facility] CO2 (BldA) [Partial pressure ]Ordered By: Nico Sweet on 05-30-2023 CO2 (Bld) [Partial pressure] 67.9 mm[Hg] 35-45 [facility] Determination of erythrocyte mean corpuscular volume (MCV)Ordered By: Jacky Holland on 05-30-2023 MCV (RBC) [Entitic vol] 92.1 fL 81-99 [facility] Determination of erythrocyte mean corpuscular volume (MCV)Ordered By: Kimberly Armstrong on 05-30-2023 MCV (RBC) [Entitic vol] 92.6 fL 81-99 [facility] Glucose Glucometer (BldC) [M ass/Vol]Ordered By: Kimberly Armstrong on 05-30-2023 Glucose [Mass/Vol] 233 mg/dL 74-106 [facility] Hematocrit Auto (Bld) [Volum e fraction]Ordered By: Jacky Holland on 05-30-2023 Hematocrit (Bld) [Volume fraction] 34.8 % 37-47 [facility] Hematocrit Auto (Bld) [Volum e fraction]Ordered By: Kimberly Armstrong on 05-30-2023 Hematocrit (Bld) [Volume fraction] 35.1 % 37-47 [facility] MCHC Auto (RBC) [Mass/Vol]Or dered By: Kimberly Armstrong on 05-30-2023 MCHC (RBC) [Mass/Vol] 31.3 g/dL 32-36 [facility] No Panel InformationOrdered By: Nico Sweet on 05-30-[address] [facility] L Radial [facility] AC [facility] Adult Vent [facility] 450.[address] [facility] 14 [facility] 100.0 [facility] 5 [facility] 23:05:17 [facility] [address] Holland [facility] Yes [facility] 28 mmol/L [facility] No Panel InformationOrdered By: Kimberly Armstrong on 05-30-2023 0 % 0-5 [facility] 29.0 pg 27.0-32.0 [facility] 12.2 % 11.6-14.6 [facility] 41.2 fl 35.1-43.9 [facility] 1.300 % 0.0-0.9 [facility] 68 mL/min >60 [facility] 83 mL/min >60 [facility] 46.91 ml/min [facility] 15.0 RATIO - [facility] 31.0 mmol/L 21.0-32.0 [facility] No Panel InformationOrdered By: Jacky Holland on 05-30-2023 28.8 pg 27.0-32.0 [facility] 12.4 % 11.6-14.6 [facility] 41.3 fl 35.1-43.9 [facility] 1.100 % 0.0-0.9 [facility] 0.72 FEU/ug/m 0.27-0.49 [facility] 71 mL/min >60 [facility] 86 mL/min >60 [facility] 48.58 ml/min [facility] 17.9 RATIO 05-28 [facility] 20 pg/mL 3.0-54.0 [facility] 30.0 mmol/L 21.0-32.0 [facility] 119 U/L 26-192 [facility] Oxygen (BldA) [Partial press ure]Ordered By: Nico Sweet on 05-30-2023 Oxygen (Bld) [Partial pressure] 391 mmHG 75-100 [facility] Platelets bldOrdered By: David Holland on 05-30-2023 Platelets (Bld) [#/Vol] 368 10*3/uL 150-450 [facility] Platelets bldOrdered By: Chela Armstrong on 05-30-2023 Platelets (Bld) [#/Vol] 331 10*3/uL 150-450 [facility] Serum or plasma calcium lexy urement (mass/volume)Ordered By: Jacky Holland on 05-30-2023 Calcium [Mass/Vol] 9.5 mg/dL 8.5-10.1 [facility] Serum or plasma calcium lexy urement (mass/volume)Ordered By: Kimberly Armstrong on 05-30-2023 Calcium [Mass/Vol] 9.0 mg/dL 8.5-10.1 [facility] Serum or plasma creatinine m easurement (mass/volume)Ordered By: Jacky Holland on 05-30-2023 Creatinine [Mass/Vol] 0.84 mg/dL 0.55-1.02 [facility] Serum or plasma creatinine m easurement (mass/volume)Ordered By: Kimberly Armstrong on 05-30-2023 Creatinine [Mass/Vol] 0.87 mg/dL 0.55-1.02 [facility] Serum or plasma urea nitroge n measurement (mass/volume)Ordered By: Jacky Holland on 05-30-2023 Urea nitrogen [Mass/Vol] 15 mg/dL 02-23 [facility] Serum or plasma urea nitroge n measurement (mass/volume)Ordered By: Kimberly Armstrong on 05-30-2023 Urea nitrogen [Mass/Vol] 13 mg/dL 02-23 [facility] Thin prep Papanicolaou smear with manual screeningOrdered By: Jacky Holland on 05-30-2023 Thin prep Papanicolaou smear with manual screening 12-21 [facility] Thin prep Papanicolaou smear with manual screeningOrdered By: Kimberly Armstrong on 05-30-2023 Thin prep Papanicolaou smear with manual screening 5 12-21 [facility] pH measurementOrdered By: Belen Sweet on 05-30-2023 pH (Unsp spec) 7.18 [pH] 7.35-7.45 [facility] Basophil percentageOrdered B y: Sandeep Fong on 05-29-2023 Basophil percentage 1.7 mmol/L 0.4-2.0 [facility] No Panel InformationOrdered By: Nico Sweet on 05-29-2023 2.10 uIU/mL 0.358-3.74 [facility] Negative Negative [facility] No Panel InformationOrdered By: Sandeep Fong on 05-29-2023 No growth in 5 days. [facility] Respiratory pathogens detect ion panel by molecular detection methodOrdered By: Nico Sweet on 05-29-2023 Respiratory pathogens DNA and RNA panel GENTRY+probe (Resp) [facility] Respiratory pathogens DNA and RNA panel GENTRY+probe (Resp) [facility] Urine Legionella pneumophila antigen detectionOrdered By: Nico Sweet on 05-29-2023 L. pneumophila Ag Ql (U) [facility] L. pneumophila Ag Ql (U) [facility] No Panel InformationOrdered By: Sandeep Fong on 05-28-2023 No growth in 5 days. [facility] 87.7 pg/mL 0-100 [facility] No Panel InformationOrdered By: Nico Sweet on 05-28-2023 2.1 mg/dL 1.6-2.6 [facility] Absolute lymphocyte countOrd ered By: Mariah Miller on 05-25-2023 Lymphocytes Auto (Unsp spec) [#/Vol] 1.44 10*3/uL 0.83-4.51 [facility] Basophil percentageOrdered B y: Mariah Miller on 05-25-2023 Basophil percentage 136 mg/dL 74-106 [facility] Basophil percentage 6.8 g/dL 6.4-8.2 [facility] Basophil percentage 0.20 mg/dL 0.20-1.00 [facility] Basophil percentage 134 mmol/L 136-145 [facility] Basophil percentage 3.3 mmol/L 3.5-5.1 [facility] Basophil percentage 96 mmol/L 98-107 [facility] Basophils (Bld) [#/Vol] 8.8 10*3/uL 4.4-11.0 [facility] Basophils (Bld) [#/Vol] 6.4 10*3/uL 2.0-7.7 [facility] Basophils/100 WBC (Bld) 73.1 % 47-70 [facility] Basophils/100 WBC (Bld) 3.1 % 0-5 [facility] Basophils/100 WBC (Bld) 0.8 % 0-1 [facility] Blood erythrocytes count (nu mber/volume)Ordered By: Mariah Miller on 05-25-2023 RBC (Bld) [#/Vol] 3.79 10*6/uL 4.2-5.4 [facility] Blood hemoglobin measurement (mass/volume)Ordered By: Mariah Miller on 05-25-2023 Hemoglobin (Bld) [Mass/Vol] 11.0 g/dL 12.0-15.0 [facility] Blood lymphocytes/100 leukoc ytesOrdered By: Mariah Miller on 05-25-2023 Lymphocytes/100 WBC (Bld) 16.3 % 19-41 [facility] Blood monocytes/100 leukocyt esOrdered By: Mariah Miller on 05-25-2023 Monocytes/100 WBC (Bld) 6.1 % 0-10 [facility] Blood platelet mean volumeOr dered By: Mariah Miller on 05-25-2023 Platelet mean volume (Bld) [Entitic vol] 10.7 fL 6.2-12.0 [facility] Determination of erythrocyte mean corpuscular volume (MCV)Ordered By: Mariah Miller on 05-25-2023 MCV (RBC) [Entitic vol] 92.1 fL 81-99 [facility] Direct bilirubinOrdered By: Mariah Miller on 05-25-2023 Bilirubin.direct [Mass/Vol] 0.07 mg/dL 0.00-0.30 [facility] Hematocrit Auto (Bld) [Volum e fraction]Ordered By: Mariah Miller on 05-25-2023 Hematocrit (Bld) [Volume fraction] 34.9 % 37-47 [facility] Influenza virus A and B and SARS-CoV-2 (COVID-19) Ag panel - Upper respiratory specimOrdered By: Mariah Miller on 05-25-2023 SARS-CoV-2 (COVID-19) RNA GENTRY+probe Ql (Resp) [facility] SARS-CoV-2 (COVID-19) RNA GENTRY+probe Ql (Resp) [facility] MCHC Auto (RBC) [Mass/Vol]Or dered By: Mariah Miller on 05-25-2023 MCHC (RBC) [Mass/Vol] 31.5 g/dL 32-36 [facility] No Panel InformationOrdered By: Mariah Miller on 05-25-2023 29.0 pg 27.0-32.0 [facility] 11.9 % 11.6-14.6 [facility] 40.6 fl 35.1-43.9 [facility] 0.600 % 0.0-0.9 [facility] 0 % 0-5 [facility] 88 mL/min >60 [facility] 106 mL/min >60 [facility] 40.81 ml/min [facility] 10.0 RATIO 10-20 [facility] 3.6 g/dL 2.2-4.2 [facility] 16 U/L 13-75 [facility] 11 pg/mL 3.0-54.0 [facility] 150 U/L 45-117 [facility] 21 U/L 13-56 [facility] 33.0 mmol/L 21.0-32.0 [facility] Platelets bldOrdered By: Jammie Miller on 05-25-2023 Platelets (Bld) [#/Vol] 277 10*3/uL 150-450 [facility] Serum or plasma albumin lexy urement (mass/volume)Ordered By: Mariah Miller on 05-25-2023 Albumin [Mass/Vol] 3.2 g/dL 3.2-5.0 [facility] Serum or plasma calcium lexy urement (mass/volume)Ordered By: Mariah Miller on 05-25-2023 Calcium [Mass/Vol] 8.7 mg/dL 8.5-10.1 [facility] Serum or plasma creatinine m easurement (mass/volume)Ordered By: Mariah Miller on 05-25-2023 Creatinine [Mass/Vol] 0.70 mg/dL 0.55-1.02 [facility] Serum or plasma urea nitroge n measurement (mass/volume)Ordered By: Mariah Miller on 05-25-2023 Urea nitrogen [Mass/Vol] 7 mg/dL 7-18 [facility] Thin prep Papanicolaou smear with manual screeningOrdered By: Mariah Miller on 05-25-2023 Thin prep Papanicolaou smear with manual screening 13 U/L 15-37 [facility] Thin prep Papanicolaou smear with manual screening 5 5-15 [facility] Upper respiratory specimen i nfluenza A virus, influenza B virus, and severe acute respiratory syndromOrdered By: Mariah Miller on 05-25-2023 Upper respiratory specimen influenza A virus, influenza B virus, and severe acute respiratory syndrom [facility] No Panel Informationon 05-20 10.5 % 4.2-6.3 [facility] Absolute lymphocyte countOrd ered By: Sera Aguilar on 04-16-2023 Lymphocytes Auto (Unsp spec) [#/Vol] 1.48 10*3/uL 0.83-4.51 [facility] Basophil percentageOrdered B y: Sera Aguilar on 04-16-2023 Basophil percentage 374 mg/dL 74-106 [facility] Basophil percentage 7.1 g/dL 6.4-8.2 [facility] Basophil percentage 0.30 mg/dL 0.20-1.00 [facility] Basophil percentage 130 mmol/L 136-145 [facility] Basophil percentage 4.3 mmol/L 3.5-5.1 [facility] Basophil percentage 91 mmol/L 98-107 [facility] Basophils (Bld) [#/Vol] 10.9 10*3/uL 4.4-11.0 [facility] Basophils (Bld) [#/Vol] 8.3 10*3/uL 2.0-7.7 [facility] Basophils/100 WBC (Bld) 76.4 % 47-70 [facility] Basophils/100 WBC (Bld) 2.2 % 0-5 [facility] Basophils/100 WBC (Bld) 0.7 % 0-1 [facility] Basophil percentage 0 SEEN /hpf 0-5 [facility] Bilirubin Test strip Ql (U)O rdered By: Sera Aguilar on 04-16-2023 Bilirubin Ql (U) Negative Negative [facility] Blood erythrocytes count (nu mber/volume)Ordered By: Sera Aguilar on 04-16-2023 RBC (Bld) [#/Vol] 3.97 10*6/uL 4.2-5.4 [facility] Blood hemoglobin measurement (mass/volume)Ordered By: Sera Aguilar on 04-16-2023 Hemoglobin (Bld) [Mass/Vol] 11.6 g/dL 12.0-15.0 [facility] Blood lymphocytes/100 leukoc ytesOrdered By: Sera Aguilar on 04-16-2023 Lymphocytes/100 WBC (Bld) 13.6 % 19-41 [facility] Blood monocytes/100 leukocyt esOrdered By: Sera Aguilar on 04-16-2023 Monocytes/100 WBC (Bld) 6.5 % 0-10 [facility] Blood platelet mean volumeOr dered By: Sera Aguilar on 04-16-2023 Platelet mean volume (Bld) [Entitic vol] 10.5 fL 6.2-12.0 [facility] Determination of erythrocyte mean corpuscular volume (MCV)Ordered By: Sera Aguilar on 04-16-2023 MCV (RBC) [Entitic vol] 92.4 fL 81-99 [facility] Hematocrit Auto (Bld) [Volum e fraction]Ordered By: Sera Aguilar on 04-16-2023 Hematocrit (Bld) [Volume fraction] 36.7 % 37-47 [facility] Ketones Test strip Ql (U)Ord ered By: Sera Aguilar on 04-16-2023 Ketones Ql (U) Negative Negative [facility] MCHC Auto (RBC) [Mass/Vol]Or dered By: Sera Aguilar on 04-16-2023 MCHC (RBC) [Mass/Vol] 31.6 g/dL 32-36 [facility] Mucus LM Ql (Urine sed)Order ed By: Sera Aguilar on 04-16-2023 Mucus Ql (Urine sed) 0 SEEN /hpf [facility] Nitrite Test strip Ql (U)Ord ered By: Sera Aguilar on 04-16-2023 Nitrite Ql (U) Negative Negative [facility] No Panel InformationOrdered By: Sera Aguilar on 04-16-2023 9 pg/mL 3.0-54.0 [facility] 29.2 pg 27.0-32.0 [facility] 11.9 % 11.6-14.6 [facility] 40.9 fl 35.1-43.9 [facility] 0.600 % 0.0-0.9 [facility] 0 % 0-5 [facility] 60 mL/min >60 [facility] 72 mL/min >60 [facility] 42.07 ml/min [facility] 12.3 RATIO 10-20 [facility] 3.6 g/dL 2.2-4.2 [facility] 23 U/L 13-75 [facility] 142 U/L 45-117 [facility] 20 U/L 13-56 [facility] 33.0 mmol/L 21.0-32.0 [facility] 42.3 pg/mL 0-100 [facility] No Panel Informationon 04-[address] [facility] Platelets bldOrdered By: Alisia Aguilar on 04-16-2023 Platelets (Bld) [#/Vol] 276 10*3/uL 150-450 [facility] Protein Test strip Ql (U)Ord ered By: Sera Aguilar on 04-16-2023 Protein Ql (U) Negative Negative [facility] Serum or plasma albumin lexy urement (mass/volume)Ordered By: Sera Aguilar on 04-16-2023 Albumin [Mass/Vol] 3.5 g/dL 3.2-5.0 [facility] Serum or plasma albumin/glob ulin mass ratioOrdered By: Sera Aguilar on 04-16-2023 Albumin/Globulin [Mass ratio] 1.0 {ratio} 0.9-2.4 [facility] Serum or plasma calcium lexy urement (mass/volume)Ordered By: Sera Aguilar on 04-16-2023 Calcium [Mass/Vol] 9.4 mg/dL 8.5-10.1 [facility] Serum or plasma creatinine m easurement (mass/volume)Ordered By: Sera Aguilar on 04-16-2023 Creatinine [Mass/Vol] 0.97 mg/dL 0.55-1.02 [facility] Serum or plasma urea nitroge n measurement (mass/volume)Ordered By: Sera Aguilar on 04-16-2023 Urea nitrogen [Mass/Vol] 12 mg/dL 7-18 [facility] Squamous epithelial cells de tection in urine sediment by light microscopyOrdered By: Sera Aguilar on 04-16-2023 Epithelial cells.squamous LM Ql (Urine sed) 10-25 SEEN /hpf 5-10 [facility] Thin prep Papanicolaou smear with manual screeningOrdered By: Sera Aguilar on 04-16-2023 Thin prep Papanicolaou smear with manual screening 10 U/L 15-37 [facility] Thin prep Papanicolaou smear with manual screening 6 5-15 [facility] Urine blood detectionOrdered By: Sera Aguilar on 04-16-2023 RBC Ql (U) Negative Negative [facility] RBC Ql (U) 0 SEEN /hpf 0-5 [facility] Urine clarityOrdered By: Alisia Aguilar on 04-16-2023 Clarity (U) Clear Clear [facility] Urine color determinationOrd ered By: Sera Aguilar on 04-16-2023 Color (U) Yellow Yellow [facility] Urine glucose detectionOrder ed By: Sera Aguilar on 04-16-2023 Glucose Ql (U) 1000 mg/dl Normal [facility] Urine leukocyte esterase det ection by dipstickOrdered By: Sera Aguilar on 04-16-2023 Leukocyte esterase Test strip Ql (U) Negative Negative [facility] Urine pHOrdered By: Sera kilgore on 04-16-2023 pH (U) 6.0 [pH] 5.0 - 8.0 [facility] Urine sediment bacteria coun t by microscopy (number/high power field)Ordered By: Sera Aguilar on 04-16-2023 Bacteria LM.HPF (Urine sed) [#/Area] 1 /[HPF] None Seen [facility] Urine specific gravity measu rementOrdered By: Sera Aguilar on 04-16-2023 Specific gravity (U) [Rel density] 1.010 1.002-1.030 [facility] Urobilinogen Auto test strip Ql (U)Ordered By: Sera Aguilar on 04-16-2023 Urobilinogen Ql (U) Normal mg/dl Normal [facility] No Panel InformationOrdered By: Pasha Thornton on 03-19-2023 9 pg/mL 3.0-54.0 [facility] Absolute lymphocyte countOrd ered By: Pasha Thornton on 03-18-2023 Lymphocytes Auto (Unsp spec) [#/Vol] 1.53 10*3/uL 0.83-4.51 [facility] Basophil percentageOrdered B y: Pasha Thornton on 03-18-2023 Basophil percentage 125 mg/dL 74-106 [facility] Basophil percentage 132 mmol/L 136-145 [facility] Basophil percentage 4.1 mmol/L 3.5-5.1 [facility] Basophil percentage 94 mmol/L 98-107 [facility] Basophils (Bld) [#/Vol] 13.7 10*3/uL 4.4-11.0 [facility] Basophils (Bld) [#/Vol] 11.0 10*3/uL 2.0-7.7 [facility] Basophils/100 WBC (Bld) 79.7 % 47-70 [facility] Basophils/100 WBC (Bld) 1.3 % 0-5 [facility] Basophils/100 WBC (Bld) 0.7 % 0-1 [facility] Blood erythrocytes count (nu mber/volume)Ordered By: Pasha Thornton on 03-18-2023 RBC (Bld) [#/Vol] 4.30 10*6/uL 4.2-5.4 [facility] Blood hemoglobin measurement (mass/volume)Ordered By: Pasha Thornton on 03-18-2023 Hemoglobin (Bld) [Mass/Vol] 12.6 g/dL 12.0-15.0 [facility] Blood lymphocytes/100 leukoc ytesOrdered By: Pasha Thornton on 03-18-2023 Lymphocytes/100 WBC (Bld) 11.1 % 19-41 [facility] Blood monocytes/100 leukocyt esOrdered By: Pasha Thornton on 03-18-2023 Monocytes/100 WBC (Bld) 6.5 % 0-10 [facility] Blood platelet mean volumeOr dered By: Pasha Thornton on 03-18-2023 Platelet mean volume (Bld) [Entitic vol] 11.0 fL 6.2-12.0 [facility] Determination of erythrocyte mean corpuscular volume (MCV)Ordered By: Pasha Thornton on 03-18-2023 MCV (RBC) [Entitic vol] 90.0 fL 81-99 [facility] Glucose Glucometer (BldC) [M ass/Vol]Ordered By: Pasha Thornton on 03-18-2023 Glucose [Mass/Vol] 131 mg/dL 74-106 [facility] Hematocrit Auto (Bld) [Volum e fraction]Ordered By: Pasha Thornton on 03-18-2023 Hematocrit (Bld) [Volume fraction] 38.7 % 37-47 [facility] MCHC Auto (RBC) [Mass/Vol]Or dered By: Pasha Thornton on 03-18-2023 MCHC (RBC) [Mass/Vol] 32.6 g/dL 32-36 [facility] No Panel InformationOrdered By: Pasha Thornton on 03-18-2023 29.3 pg 27.0-32.0 [facility] 12.0 % 11.6-14.6 [facility] 39.2 fl 35.1-43.9 [facility] 0.700 % 0.0-0.9 [facility] 0 % 0-5 [facility] 53 mL/min >60 [facility] 64 mL/min >60 [facility] 37.44 ml/min [facility] 16.5 RATIO 10-20 [facility] 33.0 mmol/L 21.0-32.0 [facility] Platelets bldOrdered By: Pasha Thornton on 03-18-2023 Platelets (Bld) [#/Vol] 301 10*3/uL 150-450 [facility] Serum or plasma calcium lexy urement (mass/volume)Ordered By: Pasha Thornton on 03-18-2023 Calcium [Mass/Vol] 10.3 mg/dL 8.5-10.1 [facility] Serum or plasma creatinine m easurement (mass/volume)Ordered By: Pasha Thornton on 03-18-2023 Creatinine [Mass/Vol] 1.09 mg/dL 0.55-1.02 [facility] Serum or plasma urea nitroge n measurement (mass/volume)Ordered By: Pasha Thornton on 03-18-2023 Urea nitrogen [Mass/Vol] 18 mg/dL 7-18 [facility] Thin prep Papanicolaou smear with manual screeningOrdered By: Pasha Thornton on 03-18-2023 Thin prep Papanicolaou smear with manual screening 5 5-15 [facility] Absolute lymphocyte countOrd ered By: Billy Madera on 02-17-2023 Lymphocytes Auto (Unsp spec) [#/Vol] 1.58 10*3/uL 0.83-4.51 [facility] Basophil percentageOrdered B y: Billy Madera on 02-17-2023 Basophils (Bld) [#/Vol] 10.3 10*3/uL 4.4-11.0 [facility] Basophils (Bld) [#/Vol] 7.8 10*3/uL 2.0-7.7 [facility] Basophils/100 WBC (Bld) 76.0 % 47-70 [facility] Basophils/100 WBC (Bld) 2.2 % 0-5 [facility] Basophils/100 WBC (Bld) 0.7 % 0-1 [facility] Blood erythrocytes count (nu mber/volume)Ordered By: Billy Madera on 02-17-2023 RBC (Bld) [#/Vol] 4.26 10*6/uL 4.2-5.4 [facility] Blood hemoglobin measurement (mass/volume)Ordered By: Billy Madera on 02-17-2023 Hemoglobin (Bld) [Mass/Vol] 12.7 g/dL 12.0-15.0 [facility] Blood lymphocytes/100 leukoc ytesOrdered By: Billy Madera on 02-17-2023 Lymphocytes/100 WBC (Bld) 15.4 % 19-41 [facility] Blood monocytes/100 leukocyt esOrdered By: Billy Madera on 02-17-2023 Monocytes/100 WBC (Bld) 5.4 % 0-10 [facility] Blood platelet mean volumeOr dered By: Billy Madera on 02-17-2023 Platelet mean volume (Bld) [Entitic vol] 10.8 fL 6.2-12.0 [facility] Determination of erythrocyte mean corpuscular volume (MCV)Ordered By: Billy Madera on 02-17-2023 MCV (RBC) [Entitic vol] 93.2 fL 81-99 [facility] Hematocrit Auto (Bld) [Volum e fraction]Ordered By: Billy Madera on 02-17-2023 Hematocrit (Bld) [Volume fraction] 39.7 % 37-47 [facility] MCHC Auto (RBC) [Mass/Vol]Or dered By: Billy Madera on 02-17-2023 MCHC (RBC) [Mass/Vol] 32.0 g/dL 32-36 [facility] No Panel InformationOrdered By: Billy Madera on 02-17-2023 29.8 pg 27.0-32.0 [facility] 12.6 % 11.6-14.6 [facility] 42.8 fl 35.1-43.9 [facility] 0.300 % 0.0-0.9 [facility] 0 % 0-5 [facility] No Panel Informationon 02-17 8.7 % 4.2-6.3 [facility] Platelets bldOrdered By: Kelby Madera on 02-17-2023 Platelets (Bld) [#/Vol] 302 10*3/uL 150-450 [facility] Absolute lymphocyte countOrd ered By: Dr. Moraes on 01-28-2023 Lymphocytes Auto (Unsp spec) [#/Vol] 1.22 10*3/uL 0.83-4.51 [facility] Basophil percentageOrdered B y: Dr. Moraes on 01-28-2023 Basophil percentage 257 mg/dL 74-106 [facility] Basophil percentage 137 mmol/L 136-145 [facility] Basophil percentage 3.9 mmol/L 3.5-5.1 [facility] Basophil percentage 102 mmol/L 98-107 [facility] Basophils (Bld) [#/Vol] 14.8 10*3/uL 4.4-11.0 [facility] Basophils (Bld) [#/Vol] 12.4 10*3/uL 2.0-7.7 [facility] Basophils/100 WBC (Bld) 83.8 % 47-70 [facility] Basophils/100 WBC (Bld) 0.1 % 0-5 [facility] Basophils/100 WBC (Bld) 0.2 % 0-1 [facility] Blood erythrocytes count (nu mber/volume)Ordered By: Dr. Moraes on 01-28-2023 RBC (Bld) [#/Vol] 3.97 10*6/uL 4.2-5.4 [facility] Blood hemoglobin measurement (mass/volume)Ordered By: Dr. Moraes on 01-28-2023 Hemoglobin (Bld) [Mass/Vol] 11.8 g/dL 12.0-15.0 [facility] Blood lymphocytes/100 leukoc ytesOrdered By: Dr. Moraes on 01-28-2023 Lymphocytes/100 WBC (Bld) 8.3 % 19-41 [facility] Blood monocytes/100 leukocyt esOrdered By: Dr. Moraes on 01-28-2023 Monocytes/100 WBC (Bld) 6.1 % 0-10 [facility] Blood platelet mean volumeOr dered By: Dr. Moraes on 01-28-2023 Platelet mean volume (Bld) [Entitic vol] 11.3 fL 6.2-12.0 [facility] Determination of erythrocyte mean corpuscular volume (MCV)Ordered By: Dr. Moraes on 01-28-2023 MCV (RBC) [Entitic vol] 90.7 fL 81-99 [facility] Glucose Glucometer (BldC) [M ass/Vol]Ordered By: Dr. Moraes on 01-28-2023 Glucose [Mass/Vol] 187 mg/dL 74-106 [facility] Hematocrit Auto (Bld) [Volum e fraction]Ordered By: Dr. Moraes on 01-28-2023 Hematocrit (Bld) [Volume fraction] 36.0 % 37-47 [facility] MCHC Auto (RBC) [Mass/Vol]Or dered By: Dr. Moraes on 01-28-2023 MCHC (RBC) [Mass/Vol] 32.8 g/dL 32-36 [facility] No Panel InformationOrdered By: Dr. Moraes on 01-28-2023 29.7 pg 27.0-32.0 [facility] 12.1 % 11.6-14.6 [facility] 39.8 fl 35.1-43.9 [facility] 1.500 % 0.0-0.9 [facility] 0 % 0-5 [facility] 70 mL/min >60 [facility] 85 mL/min >60 [facility] 48.58 ml/min [facility] 20.1 RATIO 10-20 [facility] 28.0 mmol/L 21.0-32.0 [facility] Platelets bldOrdered By: Dr. Moraes on 01-28-2023 Platelets (Bld) [#/Vol] 320 10*3/uL 150-450 [facility] Serum or plasma calcium lexy urement (mass/volume)Ordered By: Dr. Moraes on 01-28-2023 Calcium [Mass/Vol] 9.4 mg/dL 8.5-10.1 [facility] Serum or plasma creatinine m easurement (mass/volume)Ordered By: Dr. Moraes on 01-28-2023 Creatinine [Mass/Vol] 0.84 mg/dL 0.55-1.02 [facility] Serum or plasma urea nitroge n measurement (mass/volume)Ordered By: Dr. Moraes on 01-28-2023 Urea nitrogen [Mass/Vol] 17 mg/dL 7-18 [facility] Thin prep Papanicolaou smear with manual screeningOrdered By: Dr. Moraes on 01-28-2023 Thin prep Papanicolaou smear with manual screening 7 5-15 [facility] No Panel InformationOrdered By: Mariah Miller on 01-26-2023 No growth in 5 days. [facility] No Panel InformationOrdered By: Dr. Miller on 01-26-2023 7 pg/mL 3.0-54.0 [facility] 25.7 pg/mL 0-100 [facility] Bacteria identified Cx Nom ( U)Ordered By: Marko Smith on 01-07-2023 Culture, urine Positive [facility] Bacteria identified Cx Nom ( U)Ordered By: Marko Smith on 01-05-2023 Culture, urine Positive [facility] Absolute lymphocyte countOrd ered By: Marko Smith on 01-04-2023 Lymphocytes Auto (Unsp spec) [#/Vol] 2.31 10*3/uL 0.83-4.51 [facility] Basophil percentageOrdered B y: Marko Smith on 01-04-2023 Basophil percentage 0-5 SEEN /hpf 0-5 [facility] Basophil percentage 213 mg/dL 74-106 [facility] Basophil percentage 130 mmol/L 136-145 [facility] Basophil percentage 3.5 mmol/L 3.5-5.1 [facility] Basophil percentage 92 mmol/L 98-107 [facility] Basophils (Bld) [#/Vol] 11.2 10*3/uL 4.4-11.0 [facility] Basophils (Bld) [#/Vol] 7.8 10*3/uL 2.0-7.7 [facility] Basophils/100 WBC (Bld) 69.5 % 47-70 [facility] Basophils/100 WBC (Bld) 2.1 % 0-5 [facility] Basophils/100 WBC (Bld) 0.7 % 0-1 [facility] Bilirubin Test strip Ql (U)O rdered By: Marko Smith on 01-04-2023 Bilirubin Ql (U) Negative Negative [facility] Blood erythrocytes count (nu mber/volume)Ordered By: Marko Smith on 01-04-2023 RBC (Bld) [#/Vol] 4.05 10*6/uL 4.2-5.4 [facility] Blood hemoglobin measurement (mass/volume)Ordered By: Marko Smith on 01-04-2023 Hemoglobin (Bld) [Mass/Vol] 12.2 g/dL 12.0-15.0 [facility] Blood lymphocytes/100 leukoc ytesOrdered By: Marko Smith on 01-04-2023 Lymphocytes/100 WBC (Bld) 20.7 % 19-41 [facility] Blood monocytes/100 leukocyt esOrdered By: Marko Smith on 01-04-2023 Monocytes/100 WBC (Bld) 5.6 % 0-10 [facility] Blood platelet mean volumeOr dered By: Marko Smith on 01-04-2023 Platelet mean volume (Bld) [Entitic vol] 11.3 fL 6.2-12.0 [facility] Determination of erythrocyte mean corpuscular volume (MCV)Ordered By: Marko Smith on 01-04-2023 MCV (RBC) [Entitic vol] 92.1 fL 81-99 [facility] Hematocrit Auto (Bld) [Volum e fraction]Ordered By: Marko Smith on 01-04-2023 Hematocrit (Bld) [Volume fraction] 37.3 % 37-47 [facility] Ketones Test strip Ql (U)Ord ered By: Marko Smith on 01-04-2023 Ketones Ql (U) Negative Negative [facility] MCHC Auto (RBC) [Mass/Vol]Or dered By: Marko Smith on 01-04-2023 MCHC (RBC) [Mass/Vol] 32.7 g/dL 32-36 [facility] Mucus LM Ql (Urine sed)Order ed By: Marko Smith on 01-04-2023 Mucus Ql (Urine sed) 0 SEEN /hpf [facility] Nitrite Test strip Ql (U)Ord ered By: Marko Smith on 01-04-2023 Nitrite Ql (U) Negative Negative [facility] No Panel InformationOrdered By: Marko Smith on 01-04-2023 30.1 pg 27.0-32.0 [facility] 12.1 % 11.6-14.6 [facility] 40.6 fl 35.1-43.9 [facility] 1.400 % 0.0-0.9 [facility] 0 % 0-5 [facility] 54 mL/min >60 [facility] 66 mL/min >60 [facility] 38.50 ml/min [facility] 14.2 RATIO 10-20 [facility] 5 pg/mL 3.0-54.0 [facility] 2.1 mg/dL 1.6-2.6 [facility] 30.0 mmol/L 21.0-32.0 [facility] Platelets bldOrdered By: Justus Smith on 01-04-2023 Platelets (Bld) [#/Vol] 277 10*3/uL 150-450 [facility] Protein Test strip Ql (U)Ord ered By: Marko Smith on 01-04-2023 Protein Ql (U) Negative Negative [facility] Serum or plasma calcium lexy urement (mass/volume)Ordered By: Marko Smith on 01-04-2023 Calcium [Mass/Vol] 9.6 mg/dL 8.5-10.1 [facility] Serum or plasma creatinine m easurement (mass/volume)Ordered By: Marko Smith on 01-04-2023 Creatinine [Mass/Vol] 1.06 mg/dL 0.55-1.02 [facility] Serum or plasma urea nitroge n measurement (mass/volume)Ordered By: Marko Smith on 01-04-2023 Urea nitrogen [Mass/Vol] 15 mg/dL 7-18 [facility] Squamous epithelial cells de tection in urine sediment by light microscopyOrdered By: Marko Smith on 01-04-2023 Epithelial cells.squamous LM Ql (Urine sed) 0-5 SEEN /hpf 5-10 [facility] Thin prep Papanicolaou smear with manual screeningOrdered By: Marko Smith on 01-04-2023 Thin prep Papanicolaou smear with manual screening 8 5-15 [facility] Urine blood detectionOrdered By: Marko Smith on 01-04-2023 RBC Ql (U) Negative Negative [facility] RBC Ql (U) 0 SEEN /hpf 0-5 [facility] Urine clarityOrdered By: Justus Smith on 01-04-2023 Clarity (U) Clear Clear [facility] Urine color determinationOrd ered By: Marko Smith on 01-04-2023 Color (U) Yellow Yellow [facility] Urine glucose detectionOrder ed By: Marko Smith on 01-04-2023 Glucose Ql (U) Normal mg/dl Normal [facility] Urine leukocyte esterase det ection by dipstickOrdered By: Marko Smith on 01-04-2023 Leukocyte esterase Test strip Ql (U) Negative Negative [facility] Urine pHOrdered By: Marko ng on 01-04-2023 pH (U) 6.5 [pH] 5.0 - 8.0 [facility] Urine sediment bacteria coun t by microscopy (number/high power field)Ordered By: Marko Smith on 01-04-2023 Bacteria LM.HPF (Urine sed) [#/Area] 2 /[HPF] None Seen [facility] Urine specific gravity measu rementOrdered By: Marko Smith on 01-04-2023 Specific gravity (U) [Rel density] 1.005 1.002-1.030 [facility] Urobilinogen Auto test strip Ql (U)Ordered By: Marko Smith on 01-04-2023 Urobilinogen Ql (U) Normal mg/dl Normal [facility] Absolute lymphocyte countOrd ered By: Ethan Barroso on 12-27-2022 Lymphocytes Auto (Unsp spec) [#/Vol] 1.45 10*3/uL 0.83-4.51 [facility] Basophil percentageOrdered B y: Ethan Barroso on 12-27-2022 Basophil percentage 166 mg/dL 74-106 [facility] Basophil percentage 6.6 g/dL 6.4-8.2 [facility] Basophil percentage 0.20 mg/dL 0.20-1.00 [facility] Basophil percentage 135 mmol/L 136-145 [facility] Basophil percentage 3.5 mmol/L 3.5-5.1 [facility] Basophil percentage 97 mmol/L 98-107 [facility] Basophils (Bld) [#/Vol] 10.8 10*3/uL 4.4-11.0 [facility] Basophils (Bld) [#/Vol] 8.4 10*3/uL 2.0-7.7 [facility] Basophils/100 WBC (Bld) 77.6 % 47-70 [facility] Basophils/100 WBC (Bld) 1.7 % 0-5 [facility] Basophils/100 WBC (Bld) 0.6 % 0-1 [facility] Blood erythrocytes count (nu mber/volume)Ordered By: Ethan Barroso on 12-27-2022 RBC (Bld) [#/Vol] 3.90 10*6/uL 4.2-5.4 [facility] Blood hemoglobin measurement (mass/volume)Ordered By: Ethan Barroso on 12-27-2022 Hemoglobin (Bld) [Mass/Vol] 11.5 g/dL 12.0-15.0 [facility] Blood lymphocytes/100 leukoc ytesOrdered By: Ethan Barroso on 12-27-2022 Lymphocytes/100 WBC (Bld) 13.5 % 19-41 [facility] Blood monocytes/100 leukocyt esOrdered By: Ethan Barroso on 12-27-2022 Monocytes/100 WBC (Bld) 6.0 % 0-10 [facility] Blood platelet mean volumeOr dered By: Ethan Barroso on 12-27-2022 Platelet mean volume (Bld) [Entitic vol] 11.1 fL 6.2-12.0 [facility] Determination of erythrocyte mean corpuscular volume (MCV)Ordered By: Ethan Barroso on 12-27-2022 MCV (RBC) [Entitic vol] 92.6 fL 81-99 [facility] Hematocrit Auto (Bld) [Volum e fraction]Ordered By: Ethan Barroso on 12-27-2022 Hematocrit (Bld) [Volume fraction] 36.1 % 37-47 [facility] MCHC Auto (RBC) [Mass/Vol]Or dered By: Ethan Barroso on 12-27-2022 MCHC (RBC) [Mass/Vol] 31.9 g/dL 32-36 [facility] No Panel InformationOrdered By: Ethan Barroso on 12-27-2022 6 pg/mL 3.0-54.0 [facility] 29.5 pg 27.0-32.0 [facility] 12.2 % 11.6-14.6 [facility] 41.0 fl 35.1-43.9 [facility] 0.600 % 0.0-0.9 [facility] 0 % 0-5 [facility] 72 mL/min >60 [facility] 87 mL/min >60 [facility] 49.17 ml/min [facility] 19.3 RATIO 10-20 [facility] 3.2 g/dL 2.2-4.2 [facility] 21 U/L 13-75 [facility] 114 U/L 45-117 [facility] 24 U/L 13-56 [facility] 32.0 mmol/L 21.0-32.0 [facility] 60.2 pg/mL 0-100 [facility] Platelets bldOrdered By: Margoth Barroso on 12-27-2022 Platelets (Bld) [#/Vol] 272 10*3/uL 150-450 [facility] Serum or plasma albumin lexy urement (mass/volume)Ordered By: Ethan Barroso on 12-27-2022 Albumin [Mass/Vol] 3.4 g/dL 3.2-5.0 [facility] Serum or plasma albumin/glob ulin mass ratioOrdered By: Ethan Barroso on 12-27-2022 Albumin/Globulin [Mass ratio] 1.1 {ratio} 0.9-2.4 [facility] Serum or plasma calcium lexy urement (mass/volume)Ordered By: Ethan Barroso on 12-27-2022 Calcium [Mass/Vol] 9.2 mg/dL 8.5-10.1 [facility] Serum or plasma creatinine m easurement (mass/volume)Ordered By: Ethan Barroso on 12-27-2022 Creatinine [Mass/Vol] 0.83 mg/dL 0.55-1.02 [facility] Serum or plasma urea nitroge n measurement (mass/volume)Ordered By: Ethan Barroso on 12-27-2022 Urea nitrogen [Mass/Vol] 16 mg/dL 7-18 [facility] Thin prep Papanicolaou smear with manual screeningOrdered By: Ethan Barroso on 12-27-2022 Thin prep Papanicolaou smear with manual screening 21 U/L 15-37 [facility] Thin prep Papanicolaou smear with manual screening 6 5-15 [facility] Absolute lymphocyte countOrd ered By: Dr. Sweet on 12-26-2022 Lymphocytes Auto (Unsp spec) [#/Vol] 1.50 10*3/uL 0.83-4.51 [facility] Basophil percentageOrdered B y: Dr. Sweet on 12-26-2022 Basophil percentage 251 mg/dL 74-106 [facility] Basophil percentage 138 mmol/L 136-145 [facility] Basophil percentage 3.9 mmol/L 3.5-5.1 [facility] Basophil percentage 102 mmol/L 98-107 [facility] Basophils (Bld) [#/Vol] 7.9 10*3/uL 4.4-11.0 [facility] Basophils (Bld) [#/Vol] 5.5 10*3/uL 2.0-7.7 [facility] Basophils/100 WBC (Bld) 69.4 % 47-70 [facility] Basophils/100 WBC (Bld) 2.9 % 0-5 [facility] Basophils/100 WBC (Bld) 1.0 % 0-1 [facility] Basophil percentageOrdered B y: Dr. Gamez on 12-26-2022 Basophil percentage 126 mg/dL <200 [facility] Basophil percentage 135 mg/dL <199 [facility] Blood erythrocytes count (nu mber/volume)Ordered By: Dr. Sweet on 12-26-2022 RBC (Bld) [#/Vol] 3.75 10*6/uL 4.2-5.4 [facility] Blood hemoglobin measurement (mass/volume)Ordered By: Dr. Sweet on 12-26-2022 Hemoglobin (Bld) [Mass/Vol] 11.1 g/dL 12.0-15.0 [facility] Blood lymphocytes/100 leukoc ytesOrdered By: Dr. Sweet on 12-26-2022 Lymphocytes/100 WBC (Bld) 18.9 % 19-41 [facility] Blood monocytes/100 leukocyt esOrdered By: Dr. Sweet on 12-26-2022 Monocytes/100 WBC (Bld) 7.4 % 0-10 [facility] Blood platelet mean volumeOr dered By: Dr. Sweet on 12-26-2022 Platelet mean volume (Bld) [Entitic vol] 11.2 fL 6.2-12.0 [facility] Determination of erythrocyte mean corpuscular volume (MCV)Ordered By: Dr. Sweet on 12-26-2022 MCV (RBC) [Entitic vol] 91.5 fL 81-99 [facility] Glucose Glucometer (BldC) [M ass/Vol]Ordered By: Dr. Sweet on 12-26-2022 Glucose [Mass/Vol] 320 mg/dL 74-106 [facility] Hematocrit Auto (Bld) [Volum e fraction]Ordered By: Dr. Sweet on 12-26-2022 Hematocrit (Bld) [Volume fraction] 34.3 % 37-47 [facility] MCHC Auto (RBC) [Mass/Vol]Or dered By: Dr. Sweet on 12-26-2022 MCHC (RBC) [Mass/Vol] 32.4 g/dL 32-36 [facility] No Panel InformationOrdered By: Dr. Sweet on 12-26-2022 29.6 pg 27.0-32.0 [facility] 12.3 % 11.6-14.6 [facility] 40.8 fl 35.1-43.9 [facility] 0.400 % 0.0-0.9 [facility] 0 % 0-5 [facility] 64 mL/min >60 [facility] 78 mL/min >60 [facility] 44.36 ml/min [facility] 13.1 RATIO 10-20 [facility] 2.1 mg/dL 1.6-2.6 [facility] 29.0 mmol/L 21.0-32.0 [facility] Platelets bldOrdered By: Dr. Sweet on 12-26-2022 Platelets (Bld) [#/Vol] 252 10*3/uL 150-450 [facility] Serum or plasma calcium lexy urement (mass/volume)Ordered By: Dr. Sweet on 12-26-2022 Calcium [Mass/Vol] 9.5 mg/dL 8.5-10.1 [facility] Serum or plasma cholesterol in HDL measurement (mass/volume)Ordered By: Dr. Gamez on 12-26-2022 Cholesterol in HDL [Mass/Vol] 55 mg/dL >40 [facility] Serum or plasma cholesterol in VLDL measurement (mass/volume)Ordered By: Dr. Gamez on 12-26-2022 Cholesterol in VLDL [Mass/Vol] 27 mg/dL 5-40 [facility] Serum or plasma creatinine m easurement (mass/volume)Ordered By: Dr. Sweet on 12-26-2022 Creatinine [Mass/Vol] 0.92 mg/dL 0.55-1.02 [facility] Serum or plasma low density lipoprotein (LDL) cholesterol measurement (mass/volume)Ordered By: Dr. Gamez on 12-26-2022 Cholesterol in LDL [Mass/Vol] 44 mg/dL 0-130 [facility] Serum or plasma urea nitroge n measurement (mass/volume)Ordered By: Dr. Sweet on 12-26-2022 Urea nitrogen [Mass/Vol] 12 mg/dL 7-18 [facility] Thin prep Papanicolaou smear with manual screeningOrdered By: Dr. Sweet on 12-26-2022 Thin prep Papanicolaou smear with manual screening 7 5-15 [facility] Basophil percentageOrdered B y: Dr. Gamez on 12-25-2022 Basophil percentage 6.0 g/dL 6.4-8.2 [facility] Basophil percentage 0.30 mg/dL 0.20-1.00 [facility] No Panel InformationOrdered By: Dr. Gamez on 12-25-2022 2.9 g/dL 2.2-4.2 [facility] 9 pg/mL 3.0-54.0 [facility] 109 U/L 45-117 [facility] 20 U/L 13-56 [facility] Serum or plasma albumin lexy urement (mass/volume)Ordered By: Dr. Gamez on 12-25-2022 Albumin [Mass/Vol] 3.1 g/dL 3.2-5.0 [facility] Serum or plasma albumin/glob ulin mass ratioOrdered By: Dr. Gamez on 12-25-2022 Albumin/Globulin [Mass ratio] 1.1 {ratio} 0.9-2.4 [facility] Thin prep Papanicolaou smear with manual screeningOrdered By: Dr. Gamez on 12-25-2022 Thin prep Papanicolaou smear with manual screening 11 U/L 15-37 [facility] Absolute lymphocyte countOrd ered By: Dr. Madera on 11-16-2022 Lymphocytes Auto (Unsp spec) [#/Vol] 1.54 10*3/uL 0.83-4.51 [facility] Basophil percentageOrdered B y: Dr. Madera on 11-16-2022 Basophil percentage 190 mg/dL 74-106 [facility] Basophil percentage 6.9 g/dL 6.4-8.2 [facility] Basophil percentage 0.20 mg/dL 0.20-1.00 [facility] Basophil percentage 132 mmol/L 136-145 [facility] Basophil percentage 4.1 mmol/L 3.5-5.1 [facility] Basophil percentage 99 mmol/L 98-107 [facility] Basophils (Bld) [#/Vol] 7.8 10*3/uL 4.4-11.0 [facility] Basophils (Bld) [#/Vol] 5.4 10*3/uL 2.0-7.7 [facility] Basophils/100 WBC (Bld) 68.9 % 47-70 [facility] Basophils/100 WBC (Bld) 2.7 % 0-5 [facility] Basophils/100 WBC (Bld) 1.0 % 0-1 [facility] Blood erythrocytes count (nu mber/volume)Ordered By: Dr. Madera on 11-16-2022 RBC (Bld) [#/Vol] 4.11 10*6/uL 4.2-5.4 [facility] Blood hemoglobin measurement (mass/volume)Ordered By: Dr. Madera on 11-16-2022 Hemoglobin (Bld) [Mass/Vol] 12.2 g/dL 12.0-15.0 [facility] Blood lymphocytes/100 leukoc ytesOrdered By: Dr. Madera on 11-16-2022 Lymphocytes/100 WBC (Bld) 19.8 % 19-41 [facility] Blood monocytes/100 leukocyt esOrdered By: Dr. Madera on 11-16-2022 Monocytes/100 WBC (Bld) 7.1 % 0-10 [facility] Blood platelet mean volumeOr dered By: Dr. Madera on 11-16-2022 Platelet mean volume (Bld) [Entitic vol] 10.8 fL 6.2-12.0 [facility] Determination of erythrocyte mean corpuscular volume (MCV)Ordered By: Dr. Madera on 11-16-2022 MCV (RBC) [Entitic vol] 92.0 fL 81-99 [facility] Hematocrit Auto (Bld) [Volum e fraction]Ordered By: Dr. Madera on 11-16-2022 Hematocrit (Bld) [Volume fraction] 37.8 % 37-47 [facility] MCHC Auto (RBC) [Mass/Vol]Or dered By: Dr. Madera on 11-16-2022 MCHC (RBC) [Mass/Vol] 32.3 g/dL 32-36 [facility] No Panel InformationOrdered By: Dr. Madera on 11-16-2022 29.7 pg 27.0-32.0 [facility] 12.0 % 11.6-14.6 [facility] 40.6 fl 35.1-43.9 [facility] 0.500 % 0.0-0.9 [facility] 0 % 0-5 [facility] 68 mL/min >60 [facility] 83 mL/min >60 [facility] 9.2 RATIO 10-20 [facility] 3.3 g/dL 2.2-4.2 [facility] 99 U/L 45-117 [facility] 25 U/L 13-56 [facility] 30.0 mmol/L 21.0-32.0 [facility] 4.17 uIU/mL 0.358-3.74 [facility] 0.80 ng/dL 0.76-1.46 [facility] Platelets bldOrdered By: Dr. Madera on 11-16-2022 Platelets (Bld) [#/Vol] 301 10*3/uL 150-450 [facility] Serum or plasma albumin lexy urement (mass/volume)Ordered By: Dr. Madera on 11-16-2022 Albumin [Mass/Vol] 3.6 g/dL 3.2-5.0 [facility] Serum or plasma albumin/glob ulin mass ratioOrdered By: Dr. Madera on 11-16-2022 Albumin/Globulin [Mass ratio] 1.1 {ratio} 0.9-2.4 [facility] Serum or plasma calcium lexy urement (mass/volume)Ordered By: Dr. Madera on 11-16-2022 Calcium [Mass/Vol] 9.4 mg/dL 8.5-10.1 [facility] Serum or plasma creatinine m easurement (mass/volume)Ordered By: Dr. Madera on 11-16-2022 Creatinine [Mass/Vol] 0.87 mg/dL 0.55-1.02 [facility] Serum or plasma thyroperoxid ase antibody assay (units/volume)Ordered By: Dr. Madera on 11-16-2022 TPO Ab Qn [IU]/mL 0-34 [facility] Serum or plasma urea nitroge n measurement (mass/volume)Ordered By: Dr. Madera on 11-16-2022 Urea nitrogen [Mass/Vol] 8 mg/dL 7-18 [facility] Thin prep Papanicolaou smear with manual screeningOrdered By: Dr. Madera on 11-16-2022 Thin prep Papanicolaou smear with manual screening 17 U/L 15-37 [facility] Thin prep Papanicolaou smear with manual screening 3 5-15 [facility] Whole blood hemoglobin A1c/t otal hemoglobin ratio (mass fraction)Ordered By: Dr. Madera on 11-16-2022 HbA1c (Bld) [Mass fraction] 9.3 % 3.8-5.6 [facility] Absolute lymphocyte countOrd ered By: Marko Smith on 10-15-2022 Lymphocytes Auto (Unsp spec) [#/Vol] 2.05 10*3/uL 0.83-4.51 [facility] Basophil percentageOrdered B y: Marko Smith on 10-15-2022 Basophil percentage 146 mg/dL 74-106 [facility] Basophil percentage 137 mmol/L 136-145 [facility] Basophil percentage 4.4 mmol/L 3.5-5.1 [facility] Basophil percentage 100 mmol/L 98-107 [facility] Basophils (Bld) [#/Vol] 9.3 10*3/uL 4.4-11.0 [facility] Basophils (Bld) [#/Vol] 6.4 10*3/uL 2.0-7.7 [facility] Basophils/100 WBC (Bld) 68.9 % 47-70 [facility] Basophils/100 WBC (Bld) 1.9 % 0-5 [facility] Basophils/100 WBC (Bld) 0.9 % 0-1 [facility] Blood erythrocytes count (nu mber/volume)Ordered By: Marko Smith on 10-15-2022 RBC (Bld) [#/Vol] 3.97 10*6/uL 4.2-5.4 [facility] Blood hemoglobin measurement (mass/volume)Ordered By: Marko Smith on 10-15-2022 Hemoglobin (Bld) [Mass/Vol] 11.8 g/dL 12.0-15.0 [facility] Blood lymphocytes/100 leukoc ytesOrdered By: Marko Smith on 10-15-2022 Lymphocytes/100 WBC (Bld) 22.1 % 19-41 [facility] Blood monocytes/100 leukocyt esOrdered By: Marko Smith on 10-15-2022 Monocytes/100 WBC (Bld) 5.9 % 0-10 [facility] Blood platelet mean volumeOr dered By: Marko Smith on 10-15-2022 Platelet mean volume (Bld) [Entitic vol] 11.2 fL 6.2-12.0 [facility] Determination of erythrocyte mean corpuscular volume (MCV)Ordered By: Marko Smith on 10-15-2022 MCV (RBC) [Entitic vol] 90.4 fL 81-99 [facility] Hematocrit Auto (Bld) [Volum e fraction]Ordered By: Marko Smith on 10-15-2022 Hematocrit (Bld) [Volume fraction] 35.9 % 37-47 [facility] MCHC Auto (RBC) [Mass/Vol]Or dered By: Marko Smith on 10-15-2022 MCHC (RBC) [Mass/Vol] 32.9 g/dL 32-36 [facility] No Panel InformationOrdered By: Marko Smith on 10-15-2022 29.7 pg 27.0-32.0 [facility] 12.0 % 11.6-14.6 [facility] 39.3 fl 35.1-43.9 [facility] 0.300 % 0.0-0.9 [facility] 0 % 0-5 [facility] 81 mL/min >60 [facility] 98 mL/min >60 [facility] 40.81 ml/min [facility] 12.0 RATIO 10-20 [facility] 30.0 mmol/L 21.0-32.0 [facility] 81.2 pg/mL 0-100 [facility] Platelets bldOrdered By: Justus Smith on 10-15-2022 Platelets (Bld) [#/Vol] 269 10*3/uL 150-450 [facility] Serum or plasma calcium lexy urement (mass/volume)Ordered By: Marko Smith on 10-15-2022 Calcium [Mass/Vol] 9.5 mg/dL 8.5-10.1 [facility] Serum or plasma creatinine m easurement (mass/volume)Ordered By: Marko Smith on 10-15-2022 Creatinine [Mass/Vol] 0.75 mg/dL 0.55-1.02 [facility] Serum or plasma urea nitroge n measurement (mass/volume)Ordered By: Marko Smith on 10-15-2022 Urea nitrogen [Mass/Vol] 9 mg/dL 7-18 [facility] Thin prep Papanicolaou smear with manual screeningOrdered By: Marko Smith on 10-15-2022 Thin prep Papanicolaou smear with manual screening 7 5-15 [facility] No Panel InformationOrdered By: Dr. Fong on 09-29-2022 No growth in 5 days. [facility] No growth in 5 days. [facility] Absolute lymphocyte countOrd ered By: Dr. Fong on 09-23-2022 Lymphocytes Auto (Unsp spec) [#/Vol] 1.66 10*3/uL 0.83-4.51 [facility] Basophil percentageOrdered B y: Dr. Fong on 09-23-2022 Basophil percentage 196 mg/dL 74-106 [facility] Basophil percentage 132 mmol/L 136-145 [facility] Basophil percentage 3.4 mmol/L 3.5-5.1 [facility] Basophil percentage 89 mmol/L 98-107 [facility] Basophil percentage 1.4 mmol/L 0.4-2.0 [facility] Basophils (Bld) [#/Vol] 10.2 10*3/uL 4.4-11.0 [facility] Basophils (Bld) [#/Vol] 7.7 10*3/uL 2.0-7.7 [facility] Basophils/100 WBC (Bld) 75.3 % 47-70 [facility] Basophils/100 WBC (Bld) 1.1 % 0-5 [facility] Basophils/100 WBC (Bld) 0.6 % 0-1 [facility] Blood erythrocytes count (nu mber/volume)Ordered By: Dr. Fong on 09-23-2022 RBC (Bld) [#/Vol] 3.97 10*6/uL 4.2-5.4 [facility] Blood hemoglobin measurement (mass/volume)Ordered By: Dr. Fong on 09-23-2022 Hemoglobin (Bld) [Mass/Vol] 11.8 g/dL 12.0-15.0 [facility] Blood lymphocytes/100 leukoc ytesOrdered By: Dr. Fong on 09-23-2022 Lymphocytes/100 WBC (Bld) 16.4 % 19-41 [facility] Blood monocytes/100 leukocyt esOrdered By: Dr. Fong on 09-23-2022 Monocytes/100 WBC (Bld) 6.1 % 0-10 [facility] Blood platelet mean volumeOr dered By: Dr. Fong on 09-23-2022 Platelet mean volume (Bld) [Entitic vol] 11.4 fL 6.2-12.0 [facility] Determination of erythrocyte mean corpuscular volume (MCV)Ordered By: Dr. Fong on 09-23-2022 MCV (RBC) [Entitic vol] 91.7 fL 81-99 [facility] Hematocrit Auto (Bld) [Volum e fraction]Ordered By: Dr. Fong on 09-23-2022 Hematocrit (Bld) [Volume fraction] 36.4 % 37-47 [facility] Influenza virus A and B and SARS-CoV-2 (COVID-19) Ag panel - Upper respiratory specimOrdered By: Dr. Fong on 09-23-2022 SARS-CoV-2 (COVID-19) RNA GENTRY+probe Ql (Resp) [facility] MCHC Auto (RBC) [Mass/Vol]Or dered By: Dr. Fong on 09-23-2022 MCHC (RBC) [Mass/Vol] 32.4 g/dL 32-36 [facility] No Panel InformationOrdered By: Dr. Fong on 09-23-2022 29.7 pg 27.0-32.0 [facility] 11.7 % 11.6-14.6 [facility] 39.5 fl 35.1-43.9 [facility] 0.500 % 0.0-0.9 [facility] 0 % 0-5 [facility] 67 mL/min >60 [facility] 81 mL/min >60 [facility] 45.85 ml/min [facility] 12.4 RATIO 10-20 [facility] 8 pg/mL 3.0-54.0 [facility] 32.0 mmol/L 21.0-32.0 [facility] 105.9 pg/mL 0-100 [facility] Platelets bldOrdered By: Dr. Fong on 09-23-2022 Platelets (Bld) [#/Vol] 273 10*3/uL 150-450 [facility] Serum or plasma calcium lexy urement (mass/volume)Ordered By: Dr. Fong on 09-23-2022 Calcium [Mass/Vol] 9.1 mg/dL 8.5-10.1 [facility] Serum or plasma creatinine m easurement (mass/volume)Ordered By: Dr. Fong on 09-23-2022 Creatinine [Mass/Vol] 0.89 mg/dL 0.55-1.02 [facility] Serum or plasma urea nitroge n measurement (mass/volume)Ordered By: Dr. Fong on 09-23-2022 Urea nitrogen [Mass/Vol] 11 mg/dL 7-18 [facility] Thin prep Papanicolaou smear with manual screeningOrdered By: Dr. Fong on 09-23-2022 Thin prep Papanicolaou smear with manual screening 11 -15 [facility] Absolute lymphocyte countOrd ered By: Dr. Goodwin on 08-17-2022 Lymphocytes Auto (Unsp spec) [#/Vol] 1.51 10*3/uL 0.83-4.51 [facility] Basophil percentageOrdered B y: Dr. Goodwin on 08-17-2022 Basophil percentage 295 mg/dL 74-106 [facility] Basophil percentage 134 mmol/L 136-145 [facility] Basophil percentage 3.9 mmol/L 3.5-5.1 [facility] Basophil percentage 98 mmol/L 98-107 [facility] Basophils (Bld) [#/Vol] 9.1 10*3/uL 4.4-11.0 [facility] Basophils (Bld) [#/Vol] 6.8 10*3/uL 2.0-7.7 [facility] Basophils/100 WBC (Bld) 0.5 % 0-1 [facility] Basophils/100 WBC (Bld) 74.5 % 47-70 [facility] Basophils/100 WBC (Bld) 1.6 % 0-5 [facility] Chloride [Moles/Vol] 98 mmol/L 98-107 [facility] Eosinophils/100 WBC (Bld) 1.6 % 0-5 [facility] Glucose [Mass/Vol] 295 mg/dL 74-106 [facility] Comment on above: Glucose result great er than or equal to 200 mg/dLsuggests DIABETES MELLITUS per A.D.A. criteria. Neutrophils (Bld) [#/Vol] 6.8 10*3/uL 2.0-7.7 [facility] Neutrophils/100 WBC (Bld) 74.5 % 47-70 [facility] Potassium [Moles/Vol] 3.9 mmol/L 3.5-5.1 [facility] Sodium [Moles/Vol] 134 mmol/L 136-145 [facility] WBC (Bld) [#/Vol] 9.1 10*3/uL 4.4-11.0 [facility] Blood erythrocytes count (nu mber/volume)Ordered By: Dr. Goodwin on 08-17-2022 RBC (Bld) [#/Vol] 3.84 10*6/uL 4.2-5.4 [facility] Blood hemoglobin measurement (mass/volume)Ordered By: Dr. Goodwin on 08-17-2022 Hemoglobin (Bld) [Mass/Vol] 11.5 g/dL 12.0-15.0 [facility] Blood lymphocytes/100 leukoc ytesOrdered By: Dr. Goodwin on 08-17-2022 Lymphocytes/100 WBC (Bld) 16.6 % 19-41 [facility] Blood monocytes/100 leukocyt esOrdered By: Dr. Goodwin on 08-17-2022 Monocytes/100 WBC (Bld) 6.0 % 0-10 [facility] Blood platelet mean volumeOr dered By: Dr. Goodwin on 08-17-2022 Platelet mean volume (Bld) [Entitic vol] 10.3 fL 6.2-12.0 [facility] Determination of erythrocyte mean corpuscular volume (MCV)Ordered By: Dr. Goodwin on 08-17-2022 MCV (RBC) [Entitic vol] 92.2 fL 81-99 [facility] Hematocrit Auto (Bld) [Volum e fraction]Ordered By: Dr. Goodwin on 08-17-2022 Hematocrit (Bld) [Volume fraction] 35.4 % 37-47 [facility] Laboratory - Chemistry and C hemistry - challengeOrdered By: Dr. Goodwin on 08-17-2022 CO2 [Moles/Vol] 31.0 mmol/L 21.0-32.0 [facility] Urea nitrogen/Creatinine [Mass ratio] 16.7 mg/mg 10-20 [facility] - Hematology and Cell countsOrdered By: Dr. Goodwin on 08-17-2022 Erythrocyte distribution width (RBC) [Entitic vol] 40.5 fL 35.1-43.9 [facility] Erythrocyte distribution width (RBC) [Ratio] 12.1 % 11.6-14.6 [facility] Immature granulocytes/100 WBC (Bld) 0.800 % 0.0-0.9 [facility] Comment on above: IG% - Immature Granu locytes (promyelocytes, myelocytes and metamyelocytes) > 1% indicates that a LEFT SHIFT is Present. MCH (RBC) [Entitic mass] 29.9 pg 27.0-32.0 [facility] Nucleated RBC/100 WBC (Bld) [Ratio] 0 % 0-5 [facility] MCHC Auto (RBC) [Mass/Vol]Or dered By: Dr. Goodwin on 08-17-2022 MCHC (RBC) [Mass/Vol] 32.5 g/dL 32-36 [facility] No Panel InformationOrdered By: Dr. Goodwin on 08-17-2022 Troponin I High Sensitivity 10 pg/mL 3.0-54.0 [facility] Comment on above: Please Note: New Janny t Units and Gender Specific Reference Ranges. For more information see Policy Stat Procedure [place] High Sensitivity Troponin (TNIH) and attachments. 10 pg/mL 3.0-54.0 [facility] Estimated Creatinine Clearance Calc 42.51 ml/min [facility] Estimated GFR (MDRD) Amer 74 mL/min >60 [facility] Comment on above: GFR Calc Estimated GFR (MDRD) Non-Af Amer 61 mL/min >60 [facility] Comment on above: Non- GFR Calc 29.9 pg 27.0-32.0 [facility] 12.1 % 11.6-14.6 [facility] 40.5 fl 35.1-43.9 [facility] 0.800 % 0.0-0.9 [facility] 0 % 0-5 [facility] 61 mL/min >60 [facility] 74 mL/min >60 [facility] 42.51 ml/min [facility] 16.7 RATIO 10-20 [facility] 31.0 mmol/L 21.0-32.0 [facility] Platelets bldOrdered By: Dr. Goodwin on 08-17-2022 Platelets (Bld) [#/Vol] 235 10*3/uL 150-450 [facility] Serum or plasma calcium lexy urement (mass/volume)Ordered By: Dr. Goodwin on 08-17-2022 Calcium [Mass/Vol] 9.1 mg/dL 8.5-10.1 [facility] Serum or plasma creatinine m easurement (mass/volume)Ordered By: Dr. Goodwin on 08-17-2022 Creatinine [Mass/Vol] 0.96 mg/dL 0.55-1.02 [facility] Comment on above: The validity of the calculated GFR & GFRAA in patients over 70 years has not been determined. Clinical correlation is essential. Serum or plasma urea nitroge n measurement (mass/volume)Ordered By: Dr. Goodwin on 08-17-2022 Urea nitrogen [Mass/Vol] 16 mg/dL 7-18 [facility] Thin prep Papanicolaou smear with manual screeningOrdered By: Dr. Goodwin on 08-17-2022 Thin prep Papanicolaou smear with manual screening 5 5-15 [facility] Laboratory - Microbiology an d Antimicrobial susceptibilityon 08-13-2022 S. pyogenes Ag IA Ql (Unsp spec) Negative [facility] - Microbiology an d Antimicrobial susceptibilityOrdered By: Ashley Curry on 08-13-2022 SARS-CoV-2 (COVID-19) RNA GENTRY+probe Ql (Unsp spec) Not detected Not Detect [facility] Comment on above: Normal Reference Ran ge: Not DetectedMethod:(RT-PCR) real-time reverse transcriptase PCRLuminex CHRISTOPHER Instrument*The Food and Drug Administration (FDA) has issued an Emergency Use Authorization (EAU) for the CHRISTOPHER SARS-CoV-2 Assay for the rapid detection of the virus that causes COVID-19. This test has been validated, but the FDAs independent review of this validation is pending.*Negative results do not preclude infection and should not be used as the sole basis for treatment or patient management. Optimum specimen types and timing for peak viral levels during infections caused by SARS-CoV-2 have not been determined. Collection of multiple specimens from the same patient may be necessary to detect the virus. The possibility of a false negative result should be considered if the patient has clinical presentation or has had recent exposure. No Panel Informationon 08-[address] [facility] Influenza Types A,B Rapid (Clinic) Negative [facility] Negative [facility] No Panel InformationOrdered By: Ashley Curry on 08-13-20[address] Not detected Not Detect [facility] Absolute lymphocyte countOrd ered By: Dr. Goodwin on 07-15-2022 Lymphocytes Auto (Unsp spec) [#/Vol] 1.45 10*3/uL 0.83-4.51 [facility] Basophil percentageOrdered B y: Dr. Goodwin on 07-15-2022 Basophil percentage 209 mg/dL 74-106 [facility] Basophil percentage 128 mmol/L 136-145 [facility] Basophil percentage 4.2 mmol/L 3.5-5.1 [facility] Basophil percentage 90 mmol/L 98-107 [facility] Basophils (Bld) [#/Vol] 11.0 10*3/uL 4.4-11.0 [facility] Basophils (Bld) [#/Vol] 8.6 10*3/uL 2.0-7.7 [facility] Basophils/100 WBC (Bld) 0.6 % 0-1 [facility] Basophils/100 WBC (Bld) 77.9 % 47-70 [facility] Basophils/100 WBC (Bld) 2.1 % 0-5 [facility] Chloride [Moles/Vol] 90 mmol/L 98-107 [facility] Eosinophils/100 WBC (Bld) 2.1 % 0-5 [facility] Glucose [Mass/Vol] 209 mg/dL 74-106 [facility] Comment on above: Glucose result great er than or equal to 200 mg/dLsuggests DIABETES MELLITUS per A.D.A. criteria. Neutrophils (Bld) [#/Vol] 8.6 10*3/uL 2.0-7.7 [facility] Neutrophils/100 WBC (Bld) 77.9 % 47-70 [facility] Potassium [Moles/Vol] 4.2 mmol/L 3.5-5.1 [facility] Comment on above: Moderate Hemolysis, Result may be falsely increased. Sodium [Moles/Vol] 128 mmol/L 136-145 [facility] WBC (Bld) [#/Vol] 11.0 10*3/uL 4.4-11.0 [facility] Blood erythrocytes count (nu mber/volume)Ordered By: Dr. Goodwin on 07-15-2022 RBC (Bld) [#/Vol] 4.14 10*6/uL 4.2-5.4 [facility] Blood hemoglobin measurement (mass/volume)Ordered By: Dr. Goodwin on 07-15-2022 Hemoglobin (Bld) [Mass/Vol] 12.5 g/dL 12.0-15.0 [facility] Blood lymphocytes/100 leukoc ytesOrdered By: Dr. Goodwin on 07-15-2022 Lymphocytes/100 WBC (Bld) 13.1 % 19-41 [facility] Blood monocytes/100 leukocyt esOrdered By: Dr. Goodwin on 07-15-2022 Monocytes/100 WBC (Bld) 5.8 % 0-10 [facility] Blood platelet mean volumeOr dered By: Dr. Goodwin on 07-15-2022 Platelet mean volume (Bld) [Entitic vol] 11.2 fL 6.2-12.0 [facility] Determination of erythrocyte mean corpuscular volume (MCV)Ordered By: Dr. Goodwin on 07-15-2022 MCV (RBC) [Entitic vol] 89.1 fL 81-99 [facility] Hematocrit Auto (Bld) [Volum e fraction]Ordered By: Dr. Goodwin on 07-15-2022 Hematocrit (Bld) [Volume fraction] 36.9 % 37-47 [facility] - Chemistry and C hemistry - challengeOrdered By: Dr. Goodwin on 07-15-2022 CO2 [Moles/Vol] 33.0 mmol/L 21.0-32.0 [facility] Urea nitrogen/Creatinine [Mass ratio] 16.3 mg/mg 10-20 [facility] - Hematology and Cell countsOrdered By: Dr. Goodwin on 07-15-2022 Erythrocyte distribution width (RBC) [Entitic vol] 39.2 fL 35.1-43.9 [facility] [facility] Erythrocyte distribution width (RBC) [Ratio] 12.1 % 11.6-14.6 [facility] Immature granulocytes/100 WBC (Bld) 0.500 % 0.0-0.9 [facility] Comment on above: IG% - Immature Granu locytes (promyelocytes, myelocytes and metamyelocytes) > 1% indicates that a LEFT SHIFT is Present. MCH (RBC) [Entitic mass] 30.2 pg 27.0-32.0 [facility] Nucleated RBC/100 WBC (Bld) [Ratio] 0 % 0-5 [facility] MCHC Auto (RBC) [Mass/Vol]Or dered By: Dr. Goodwin on 07-15-2022 MCHC (RBC) [Mass/Vol] 33.9 g/dL 32-36 [facility] No Panel InformationOrdered By: Dr. Goodwin on 07-15-2022 Troponin I High Sensitivity 13 pg/mL 3.0-54.0 [facility] Comment on above: Please Note: New Janny t Units and Gender Specific Reference Ranges. For more information see Policy Stat Procedure [place] High Sensitivity Troponin (TNIH) and attachments. 13 pg/mL 3.0-54.0 [facility] Estimated Creatinine Clearance Calc 45.00 ml/min [facility] Estimated GFR (MDRD) Amer 78 mL/min >60 [facility] Comment on above: GFR Calc Estimated GFR (MDRD) Non-Af Amer 64 mL/min >60 [facility] Comment on above: Non- GFR Calc 30.2 pg 27.0-32.0 [facility] 12.1 % 11.6-14.6 [facility] 39.2 fl 35.1-43.9 [facility] 0.500 % 0.0-0.9 [facility] 0 % 0-5 [facility] 64 mL/min >60 [facility] 78 mL/min >60 [facility] 45.00 ml/min [facility] 16.3 RATIO 10-20 [facility] 33.0 mmol/L 21.0-32.0 [facility] Platelets bldOrdered By: Dr. Goodwin on 07-15-2022 Platelets (Bld) [#/Vol] 299 10*3/uL 150-450 [facility] Serum or plasma calcium lexy urement (mass/volume)Ordered By: Dr. Goodwin on 07-15-2022 Calcium [Mass/Vol] 10.1 mg/dL 8.5-10.1 [facility] Serum or plasma creatinine m easurement (mass/volume)Ordered By: Dr. Goodwin on 07-15-2022 Creatinine [Mass/Vol] 0.92 mg/dL 0.55-1.02 [facility] Comment on above: The validity of the calculated GFR & GFRAA in patients over 70 years has not been determined. Clinical correlation is essential. Serum or plasma urea nitroge n measurement (mass/volume)Ordered By: Dr. Goodwin on 07-15-2022 Urea nitrogen [Mass/Vol] 15 mg/dL 7-18 [facility] Thin prep Papanicolaou smear with manual screeningOrdered By: Dr. Goodwin on 07-15-2022 Thin prep Papanicolaou smear with manual screening 5 5-15 [facility] Laboratory - Hematology and Cell countson 06-03-2022 HbA1c (Bld) [Mass fraction] 9.0 % 4.2-6.3 [facility] No Panel Informationon 06-03 9.0 % 4.2-6.3 [facility] Absolute lymphocyte countOrd ered By: ED PROVIDER on 05-21-2022 Lymphocytes Auto (Unsp spec) [#/Vol] 1.60 10*3/uL 0.83-4.51 [facility] Basophil percentageOrdered B y: ED PROVIDER on 05-21-2022 Basophil percentage 317 mg/dL 74-106 [facility] Basophil percentage 132 mmol/L 136-145 [facility] Basophil percentage 3.8 mmol/L 3.5-5.1 [facility] Basophil percentage 94 mmol/L 98-107 [facility] Basophils (Bld) [#/Vol] 11.8 10*3/uL 4.4-11.0 [facility] Basophils (Bld) [#/Vol] 9.2 10*3/uL 2.0-7.7 [facility] Basophils/100 WBC (Bld) 0.5 % 0-1 [facility] Basophils/100 WBC (Bld) 77.8 % 47-70 [facility] Basophils/100 WBC (Bld) 1.8 % 0-5 [facility] Chloride [Moles/Vol] 94 mmol/L 98-107 [facility] Eosinophils/100 WBC (Bld) 1.8 % 0-5 [facility] Glucose [Mass/Vol] 317 mg/dL 74-106 [facility] Comment on above: Glucose result great er than or equal to 200 mg/dLsuggests DIABETES MELLITUS per A.D.A. criteria. Neutrophils (Bld) [#/Vol] 9.2 10*3/uL 2.0-7.7 [facility] Neutrophils/100 WBC (Bld) 77.8 % 47-70 [facility] Potassium [Moles/Vol] 3.8 mmol/L 3.5-5.1 [facility] Sodium [Moles/Vol] 132 mmol/L 136-145 [facility] WBC (Bld) [#/Vol] 11.8 10*3/uL 4.4-11.0 [facility] Blood erythrocytes count (nu mber/volume)Ordered By: ED PROVIDER on 05-21-2022 RBC (Bld) [#/Vol] 3.93 10*6/uL 4.2-5.4 [facility] Blood hemoglobin measurement (mass/volume)Ordered By: ED PROVIDER on 05-21-2022 Hemoglobin (Bld) [Mass/Vol] 11.5 g/dL 12.0-15.0 [facility] Blood lymphocytes/100 leukoc ytesOrdered By: ED PROVIDER on 05-21-2022 Lymphocytes/100 WBC (Bld) 13.6 % 19-41 [facility] Blood monocytes/100 leukocyt esOrdered By: ED PROVIDER on 05-21-2022 Monocytes/100 WBC (Bld) 5.8 % 0-10 [facility] Blood platelet mean volumeOr dered By: ED PROVIDER on 05-21-2022 Platelet mean volume (Bld) [Entitic vol] 10.9 fL 6.2-12.0 [facility] Determination of erythrocyte mean corpuscular volume (MCV)Ordered By: ED PROVIDER on 05-21-2022 MCV (RBC) [Entitic vol] 90.1 fL 81-99 [facility] Hematocrit Auto (Bld) [Volum e fraction]Ordered By: ED PROVIDER on 05-21-2022 Hematocrit (Bld) [Volume fraction] 35.4 % 37-47 [facility] Laboratory - Chemistry and C hemistry - challengeOrdered By: ED PROVIDER on 05-21-2022 CO2 [Moles/Vol] 29.0 mmol/L 21.0-32.0 [facility] Urea nitrogen/Creatinine [Mass ratio] 12.8 mg/mg - [facility] Laboratory - Hematology and Cell countsOrdered By: ED PROVIDER on 05-21-2022 Erythrocyte distribution width (RBC) [Entitic vol] 40.2 fL 35.1-43.9 [facility] Erythrocyte distribution width (RBC) [Ratio] 12.4 % 11.6-14.6 [facility] Immature granulocytes/100 WBC (Bld) 0.500 % 0.0-0.9 [facility] Comment on above: IG% - Immature Granu locytes (promyelocytes, myelocytes and metamyelocytes) > 1% indicates that a LEFT SHIFT is Present. MCH (RBC) [Entitic mass] 29.3 pg 27.0-32.0 [facility] Nucleated RBC/100 WBC (Bld) [Ratio] 0 % 0-5 [facility] MCHC Auto (RBC) [Mass/Vol]Or dered By: ED PROVIDER on 05-21-2022 MCHC (RBC) [Mass/Vol] 32.5 g/dL 32-36 [facility] No Panel InformationOrdered By: ED PROVIDER on 05-21-2022 Estimated Creatinine Clearance Calc 44.04 ml/min [facility] Estimated GFR (MDRD) Amer 76 mL/min >60 [facility] Comment on above: GFR Calc Estimated GFR (MDRD) Non-Af Amer 63 mL/min >60 [facility] Comment on above: Non- GFR Calc 29.3 pg 27.0-32.0 [facility] 12.4 % 11.6-14.6 [facility] 40.2 fl 35.1-43.9 [facility] 0.500 % 0.0-0.9 [facility] 0 % 0-5 [facility] 63 mL/min >60 [facility] 76 mL/min >60 [facility] 44.04 ml/min [facility] 12.8 RATIO 10-20 [facility] 29.0 mmol/L 21.0-32.0 [facility] Platelets bldOrdered By: ED PROVIDER on 05-21-2022 Platelets (Bld) [#/Vol] 289 10*3/uL 150-450 [facility] Serum or plasma calcium lexy urement (mass/volume)Ordered By: ED PROVIDER on 05-21-2022 Calcium [Mass/Vol] 9.3 mg/dL 8.5-10.1 [facility] Serum or plasma creatinine m easurement (mass/volume)Ordered By: ED PROVIDER on 05-21-2022 Creatinine [Mass/Vol] 0.94 mg/dL 0.55-1.02 [facility] Comment on above: The validity of the calculated GFR & GFRAA in patients over 70 years has not been determined. Clinical correlation is essential. Serum or plasma urea nitroge n measurement (mass/volume)Ordered By: ED PROVIDER on 05-21-2022 Urea nitrogen [Mass/Vol] 12 mg/dL 7-18 [facility] Thin prep Papanicolaou smear with manual screeningOrdered By: ED PROVIDER on 05-21-2022 Thin prep Papanicolaou smear with manual screening 9 5-15 [facility] Absolute lymphocyte counton 03-14-2022 Lymphocytes Auto (Unsp spec) [#/Vol] 2.01 10*3/uL 0.83-4.51 [facility] Work Phone: Basophil percentageon 2021 Basophils/100 WBC (Bld) 0.7 % 0-1 [facility] Work Phone: Chloride [Moles/Vol] 96 mmol/L 98-107 [facility] Work Phone: Eosinophils/100 WBC (Bld) 1.9 % 0-5 [facility] Work Phone: Glucose [Mass/Vol] 197 mg/dL 74-106 [facility] Work Phone: Comment on above: Fasting Glucose resu lt greater than or equal to 126 mg/dL suggests DIABETES MELLITUS per A.D.A. criteria. Neutrophils (Bld) [#/Vol] 8.9 10*3/uL 2.0-7.7 [facility] Work Phone: Neutrophils/100 WBC (Bld) 74.5 % 47-70 [facility] Work Phone: Potassium [Moles/Vol] 3.9 mmol/L 3.5-5.1 [facility] Work Phone: Sodium [Moles/Vol] 132 mmol/L 136-145 [facility] Work Phone: WBC (Bld) [#/Vol] 11.9 10*3/uL 4.4-11.0 [facility] Work [facility]: Blood erythrocytes count (nu mber/volume)on 03-14-2022 RBC (Bld) [#/Vol] 4.16 10*6/uL 4.2-5.4 [facility] Work Phone: Blood hemoglobin measurement (mass/volume)on 03-14-2022 Hemoglobin (Bld) [Mass/Vol] 11.7 g/dL 12.0-15.0 [facility] Work Phone: Blood lymphocytes/100 leukoc yteson 03-14-2022 Lymphocytes/100 WBC (Bld) 16.9 % 19-41 [facility] Work Phone: Blood monocytes/100 leukocyt eson 03-14-2022 Monocytes/100 WBC (Bld) 5.6 % 0-10 [facility] Work Phone: Blood platelet mean volumeon 03-14-2022 Platelet mean volume (Bld) [Entitic vol] 10.9 fL 6.2-12.0 [facility] Work Phone: [phone] Determination of erythrocyte mean corpuscular volume (MCV)on 03-14-2022 MCV (RBC) [Entitic vol] 88.9 fL 81-99 [facility] Work Phone: [phone] Hematocrit Auto (Bld) [Volum e fraction]on 03-14-2022 Hematocrit (Bld) [Volume fraction] 37.0 % 37-47 [facility] Work Phone: Laboratory - Chemistry and C hemistry - challengeon 03-14-2022 CO2 [Moles/Vol] 28.0 mmol/L 21.0-32.0 [facility] Work Phone: Urea nitrogen/Creatinine [Mass ratio] 14.9 mg/mg 10-20 [facility] Work Phone: Laboratory - Hematology and Cell countson 03-14-2022 Erythrocyte distribution width (RBC) [Entitic vol] 43.3 fL 35.1-43.9 [facility] Work Phone: Erythrocyte distribution width (RBC) [Ratio] 13.3 % 11.6-14.6 [facility] Work Phone: Immature granulocytes/100 WBC (Bld) 0.400 % 0.0-0.9 [facility] Work Phone: Comment on above: IG% - Immature Granu locytes (promyelocytes, myelocytes and metamyelocytes) > 1% indicates that a LEFT SHIFT is Present. MCH (RBC) [Entitic mass] 28.1 pg 27.0-32.0 [facility] Work Phone: Nucleated RBC/100 WBC (Bld) [Ratio] 0 % 0-5 [facility] Work Phone: MCHC Auto (RBC) [Mass/Vol]on 03-14-2022 MCHC (RBC) [Mass/Vol] 31.6 g/dL 32-36 [facility] Work Phone: No Panel Informationon 03-14 Estimated Creatinine Clearance Calc 44.04 ml/min [facility] Work Phone: Estimated GFR (MDRD) Amer 76 mL/min >60 [facility] Work Phone: Comment on above: GFR Calc Estimated GFR (MDRD) Non-Af Amer 63 mL/min >60 [facility] Work Phone: Comment on above: Non- GFR Calc Troponin I High Sensitivity 11 pg/mL 3.0-54.0 [facility] Work Phone: Comment on above: Please Note: New Janny t Units and Gender Specific Reference Ranges. For more information see Policy Stat Procedure [place] High Sensitivity Troponin (TNIH) and attachments. Platelets bldon 03-14-2022 Platelets (Bld) [#/Vol] 273 10*3/uL 150-450 [facility] Work Phone: Serum or plasma calcium lexy urement (mass/volume)on 03-14-2022 Calcium [Mass/Vol] 9.3 mg/dL 8.5-10.1 [facility] Work Phone: Serum or plasma creatinine m easurement (mass/volume)on 03-14-2022 Creatinine [Mass/Vol] 0.94 mg/dL 0.55-1.02 [facility] Work Phone: Comment on above: The validity of the calculated GFR & GFRAA in patients over 70 years has not been determined. Clinical correlation is essential. Serum or plasma urea nitroge n measurement (mass/volume)on 03-14-2022 Urea nitrogen [Mass/Vol] 14 mg/dL 7-18 [facility] Work Phone: Thin prep Papanicolaou smear with manual screeningon 03-14-2022 Thin prep Papanicolaou smear with manual screening 8 5-15 [facility] Work Phone: Absolute lymphocyte counton 01-27-2022 Lymphocytes Auto (Unsp spec) [#/Vol] 1.38 10*3/uL 0.83-4.51 [facility] Work Phone: Basophil percentageon 2021 Basophils/100 WBC (Bld) 0.5 % 0-1 [facility] Work Phone: Chloride [Moles/Vol] 101 mmol/L 98-107 [facility] Work Phone: Eosinophils/100 WBC (Bld) 1.5 % 0-5 [facility] Work Phone: Glucose [Mass/Vol] 163 mg/dL 74-106 [facility] Work Phone: Comment on above: Fasting Glucose resu lt greater than or equal to 126 mg/dL suggests DIABETES MELLITUS per A.D.A. criteria. Neutrophils (Bld) [#/Vol] 8.9 10*3/uL 2.0-7.7 [facility] Work Phone: Neutrophils/100 WBC (Bld) 79.7 % 47-70 [facility] Work Phone: [phone] Potassium [Moles/Vol] 3.5 mmol/L 3.5-5.1 [facility] Work Phone: [phone] Sodium [Moles/Vol] 138 mmol/L 136-145 [facility] Work Phone: WBC (Bld) [#/Vol] 11.2 10*3/uL 4.4-11.0 [facility] Work Phone: Blood erythrocytes count (nu mber/volume)on 01-27-2022 RBC (Bld) [#/Vol] 3.99 10*6/uL 4.2-5.4 [facility] Work Phone: [phone] Blood hemoglobin measurement (mass/volume)on 01-27-2022 Hemoglobin (Bld) [Mass/Vol] 10.9 g/dL 12.0-15.0 [facility] Work Phone: Blood lymphocytes/100 leukoc yteson 01-27-2022 Lymphocytes/100 WBC (Bld) 12.3 % 19-41 [facility] Work Phone: Blood manual differential co mment interpretation (narrative result)on 01-27-2022 Manual differential comment Jeffrey (Bld) [Interp] SCANNED [facility] Work Phone: Blood monocytes/100 leukocyt eson 01-27-2022 Monocytes/100 WBC (Bld) 5.5 % 0-10 [facility] Work Phone: Blood platelet adequacy dete ction by light microscopyon 01-27-2022 Platelets LM Ql (Bld) ADEQUATE ADEQ [facility] Work Phone: Blood platelet mean volumeon 01-27-2022 Platelet mean volume (Bld) [Entitic vol] 11.2 fL 6.2-12.0 [facility] Work Phone: Determination of erythrocyte mean corpuscular volume (MCV)on 01-27-2022 MCV (RBC) [Entitic vol] 87.0 fL 81-99 [facility] Work Phone: Hematocrit Auto (Bld) [Volum e fraction]on 01-27-2022 Hematocrit (Bld) [Volume fraction] 34.7 % 37-47 [facility] Work Phone: Laboratory - Chemistry and C hemistry - challengeon 01-27-2022 CO2 [Moles/Vol] 31.0 mmol/L 21.0-32.0 [facility] Work Phone: Natriuretic peptide B (Bld) [Mass/Vol] 107.7 pg/mL 0-100 [facility] Work Phone: Urea nitrogen/Creatinine [Mass ratio] 8.1 mg/mg 10-20 [facility] Work Phone: Laboratory - Hematology and Cell countson 01-27-2022 Erythrocyte distribution width (RBC) [Entitic vol] 49.7 fL 35.1-43.9 [facility] Work Phone: Erythrocyte distribution width (RBC) [Ratio] 15.7 % 11.6-14.6 [facility] Work Phone: Immature granulocytes/100 WBC (Bld) 0.500 % 0.0-0.9 [facility] Work Phone: Comment on above: IG% - Immature Granu locytes (promyelocytes, myelocytes and metamyelocytes) > 1% indicates that a LEFT SHIFT is Present. MCH (RBC) [Entitic mass] 27.3 pg 27.0-32.0 [facility] Work Phone: Nucleated RBC/100 WBC (Bld) [Ratio] 0 % 0-5 [facility] Work Phone: MCHC Auto (RBC) [Mass/Vol]on 01-27-2022 MCHC (RBC) [Mass/Vol] 31.4 g/dL 32-36 [facility] Work Phone: No Panel Informationon 01-27 Estimated Creatinine Clearance Calc 42.25 ml/min [facility] Work Phone: Estimated GFR (MDRD) Amer 72 mL/min >60 [facility] Work Phone: Comment on above: GFR Calc Estimated GFR (MDRD) Non-Af Amer 59 mL/min >60 [facility] Work Phone: Comment on above: Non- GFR Calc Troponin I High Sensitivity 12 pg/mL 3.0-54.0 [facility] Work Phone: Comment on above: Please Note: New Janny t Units and Gender Specific Reference Ranges. For more information see Policy Stat Procedure [place] High Sensitivity Troponin (TNIH) and attachments. Platelets bldon 01-27-2022 Platelets (Bld) [#/Vol] 241 10*3/uL 150-450 [facility] Work Phone: Serum or plasma calcium lexy urement (mass/volume)on 01-27-2022 Calcium [Mass/Vol] 9.6 mg/dL 8.5-10.1 [facility] Work Phone: Serum or plasma creatinine m easurement (mass/volume)on 01-27-2022 Creatinine [Mass/Vol] 0.98 mg/dL 0.55-1.02 [facility] Work Phone: Comment on above: The validity of the calculated GFR & GFRAA in patients over 70 years has not been determined. Clinical correlation is essential. Serum or plasma urea nitroge n measurement (mass/volume)on 01-27-2022 Urea nitrogen [Mass/Vol] 8 mg/dL 7-18 [facility] Work Phone: Thin prep Papanicolaou smear with manual screeningon 01-27-2022 Thin prep Papanicolaou smear with manual screening 6 5-15 [facility] Work Phone: Absolute lymphocyte counton 01-20-2022 Lymphocytes Auto (Unsp spec) [#/Vol] 1.58 10*3/uL 0.83-4.51 [facility] Work Phone: Basophil percentageon 2021 Basophils/100 WBC (Bld) 0.6 % 0-1 [facility] Work Phone: Bilirubin [Mass/Vol] 0.30 mg/dL 0.20-1.00 [facility] Work Phone: Comment on above: For patients on eltr ombopag therapy, use of Dimension [place] TBIL is not recommended. Chloride [Moles/Vol] 95 mmol/L 98-107 [facility] Work Phone: Eosinophils/100 WBC (Bld) 1.7 % 0-5 [facility] Work Phone: [phone] Glucose [Mass/Vol] 319 mg/dL 74-106 [facility] Work Phone: Comment on above: Glucose result great er than or equal to 200 mg/dLsuggests DIABETES MELLITUS per A.D.A. criteria. Neutrophils (Bld) [#/Vol] 8.3 10*3/uL 2.0-7.7 [facility] Work Phone: [phone] Neutrophils/100 WBC (Bld) 76.9 % 47-70 [facility] Work Phone: [phone] Potassium [Moles/Vol] 3.4 mmol/L 3.5-5.1 [facility] Work Phone: Protein [Mass/Vol] 6.6 g/dL 6.4-8.2 [facility] Work Phone: Sodium [Moles/Vol] 132 mmol/L 136-145 [facility] Work Phone: WBC (Bld) [#/Vol] 10.7 10*3/uL 4.4-11.0 [facility] Work Phone: Blood erythrocytes count (nu mber/volume)on 01-20-2022 RBC (Bld) [#/Vol] 3.98 10*6/uL 4.2-5.4 [facility] Work Phone: Blood hemoglobin measurement (mass/volume)on 01-20-2022 Hemoglobin (Bld) [Mass/Vol] 10.8 g/dL 12.0-15.0 [facility] Work Phone: Blood lymphocytes/100 leukoc yteson 01-20-2022 Lymphocytes/100 WBC (Bld) 14.8 % 19-41 [facility] Work Phone: Blood monocytes/100 leukocyt eson 01-20-2022 Monocytes/100 WBC (Bld) 5.3 % 0-10 [facility] Work Phone: Blood platelet mean volumeon 01-20-2022 Platelet mean volume (Bld) [Entitic vol] 11.6 fL 6.2-12.0 [facility] Work Phone: Determination of erythrocyte mean corpuscular volume (MCV)on 01-20-2022 MCV (RBC) [Entitic vol] 85.7 fL 81-99 [facility] Work Phone: Hematocrit Auto (Bld) [Volum e fraction]on 01-20-2022 Hematocrit (Bld) [Volume fraction] 34.1 % 37-47 [facility] Work Phone: INR in Blood by Coagulation assayon 01-20-2022 INR Coag (Bld) [Relative time] 1.0 {INR} [facility] Work Phone: Laboratory - Chemistry and C hemistry - challengeon 01-20-2022 ALP [Catalytic activity/Vol] 122 U/L 45-117 [facility] Work Phone: ALT [Catalytic activity/Vol] 23 U/L 13-56 [facility] Work Phone: CO2 [Moles/Vol] 29.0 mmol/L 21.0-32.0 [facility] Work Phone: Globulin (S) [Mass/Vol] 3.1 g/dL 2.2-4.2 [facility] Work Phone: Natriuretic peptide B (Bld) [Mass/Vol] 76.8 pg/mL 0-100 [facility] Work Phone: Urea nitrogen/Creatinine [Mass ratio] 13.3 mg/mg 10-20 [facility] Work Phone: Laboratory - Coagulationon 0 01-20-2022 aPTT Coag (Bld) [Time] 27.0 s 24.1-[facility].[address] [facility] Work Phone: PT Coag (PPP) [Time] 13.2 s 11.7-14.9 [facility] Work Phone: Laboratory - Hematology and Cell countson 01-20-2022 Erythrocyte distribution width (RBC) [Entitic vol] 50.1 fL 35.1-43.9 [facility] Work Phone: Erythrocyte distribution width (RBC) [Ratio] 16.0 % 11.6-14.6 [facility] Work Phone: Immature granulocytes/100 WBC (Bld) 0.700 % 0.0-0.9 [facility] Work Phone: Comment on above: IG% - Immature Granu locytes (promyelocytes, myelocytes and metamyelocytes) > 1% indicates that a LEFT SHIFT is Present. MCH (RBC) [Entitic mass] 27.1 pg 27.0-32.0 [facility] Work Phone: Nucleated RBC/100 WBC (Bld) [Ratio] 0 % 0-5 [facility] Work Phone: MCHC Auto (RBC) [Mass/Vol]on 01-20-2022 MCHC (RBC) [Mass/Vol] 31.7 g/dL 32-36 [facility] Work Phone: No Panel Informationon 01-20 Estimated Creatinine Clearance Calc 46.00 ml/min [facility] Work Phone: Estimated GFR (MDRD) Amer 79 mL/min >60 [facility] Work Phone: Comment on above: GFR Calc Estimated GFR (MDRD) Non-Af Amer 65 mL/min >60 [facility] Work Phone: Comment on above: Non- GFR Calc SARS-CoV-2 & FLU Antigen (Rapid) [facility] Work Phone: Troponin I High Sensitivity 8 pg/mL 3.0-54.0 [facility] Work Phone: Comment on above: Please Note: New Janny t Units and Gender Specific Reference Ranges. For more information see Policy Stat Procedure [place] High Sensitivity Troponin (TNIH) and attachments. Platelets bldon 01-20-2022 Platelets (Bld) [#/Vol] 261 10*3/uL 150-450 [facility] Work Phone: Serum or plasma albumin lexy urement (mass/volume)on 01-20-2022 Albumin [Mass/Vol] 3.5 g/dL 3.2-5.0 [facility] Work Phone: Serum or plasma albumin/glob ulin mass ratioon 01-20-2022 Albumin/Globulin [Mass ratio] 1.1 {ratio} 0.9-2.4 [facility] Work Phone: Serum or plasma calcium lexy urement (mass/volume)on 01-20-2022 Calcium [Mass/Vol] 9.3 mg/dL 8.5-10.1 [facility] Work Phone: Serum or plasma creatinine m easurement (mass/volume)on 01-20-2022 Creatinine [Mass/Vol] 0.90 mg/dL 0.55-1.02 [facility] Work Phone: Comment on above: The validity of the calculated GFR & GFRAA in patients over 70 years has not been determined. Clinical correlation is essential. Serum or plasma urea nitroge n measurement (mass/volume)on 01-20-2022 Urea nitrogen [Mass/Vol] 12 mg/dL 7-18 [facility] Work Phone: Thin prep Papanicolaou smear with manual screeningon 01-20-2022 Thin prep Papanicolaou smear with manual screening 13 U/L 15-37 [facility] Work Phone: Thin prep Papanicolaou smear with manual screening 8 5-15 [facility] Work Phone: Absolute lymphocyte counton 12-19-2021 Lymphocytes Auto (Unsp spec) [#/Vol] 1.17 10*3/uL 0.83-4.51 [facility] Work Phone: Basophil percentageon 2021 Basophils/100 WBC (Bld) 0.5 % 0-1 [facility] Work Phone: Chloride [Moles/Vol] 96 mmol/L 98-107 [facility] Work Phone: Eosinophils/100 WBC (Bld) 1.5 % 0-5 [facility] Work Phone: Glucose [Mass/Vol] 339 mg/dL 74-106 [facility] Work Phone: Comment on above: Glucose result great er than or equal to 200 mg/dLsuggests DIABETES MELLITUS per A.D.A. criteria. Neutrophils (Bld) [#/Vol] 7.2 10*3/uL 2.0-7.7 [facility] Work Phone: Neutrophils/100 WBC (Bld) 78.5 % 47-70 [facility] Work Phone: Potassium [Moles/Vol] 3.4 mmol/L 3.5-5.1 [facility] Work Phone: Sodium [Moles/Vol] 136 mmol/L 136-145 [facility] Work Phone: WBC (Bld) [#/Vol] 9.2 10*3/uL 4.4-11.0 [facility] Work Phone: Blood erythrocytes count (nu mber/volume)on 12-19-2021 RBC (Bld) [#/Vol] 3.74 10*6/uL 4.2-5.4 [facility]: Blood hemoglobin measurement (mass/volume)on 12-19-2021 Hemoglobin (Bld) [Mass/Vol] 9.4 g/dL 12.0-15.0 [facility] Work Phone: Blood lymphocytes/100 leukoc yteson 12-19-2021 Lymphocytes/100 WBC (Bld) 12.7 % 19-41 [facility] Work Phone: Blood monocytes/100 leukocyt eson 12-19-2021 Monocytes/100 WBC (Bld) 5.9 % 0-10 [facility] Work Phone: Blood platelet mean volumeon 12-19-2021 Platelet mean volume (Bld) [Entitic vol] 11.5 fL 6.2-12.0 [facility] Work Phone: Determination of erythrocyte mean corpuscular volume (MCV)on 12-19-2021 MCV (RBC) [Entitic vol] 84.5 fL 81-99 [facility] Work Phone: Hematocrit Auto (Bld) [Volum e fraction]on 12-19-2021 Hematocrit (Bld) [Volume fraction] 31.6 % 37-47 [facility] Work Phone: Laboratory - Chemistry and C hemistry - challengeon 12-19-2021 CO2 [Moles/Vol] 32.0 mmol/L 21.0-32.0 [facility] Work Phone: Natriuretic peptide B (Bld) [Mass/Vol] 26.8 pg/mL 0-100 [facility] Work Phone: Urea nitrogen/Creatinine [Mass ratio] 12.2 mg/mg 10-20 [facility] Work Phone: Laboratory - Hematology and Cell countson 12-19-2021 Erythrocyte distribution width (RBC) [Entitic vol] 46.5 fL 35.1-43.9 [facility] Work Phone: Erythrocyte distribution width (RBC) [Ratio] 16.2 % 11.6-14.6 [facility] Work Phone: Immature granulocytes/100 WBC (Bld) 0.900 % 0.0-0.9 [facility] Work Phone: Comment on above: IG% - Immature Granu locytes (promyelocytes, myelocytes and metamyelocytes) > 1% indicates that a LEFT SHIFT is Present. MCH (RBC) [Entitic mass] 25.1 pg 27.0-32.0 [facility] Work Phone: Nucleated RBC/100 WBC (Bld) [Ratio] 0 % 0-5 [facility] Work Phone: MCHC Auto (RBC) [Mass/Vol]on 12-19-2021 MCHC (RBC) [Mass/Vol] 29.7 g/dL 32-36 [facility] Work Phone: No Panel Informationon 12-19 Estimated Creatinine Clearance Calc 42.25 ml/min [facility] Work Phone: Estimated GFR (MDRD) Amer 72 mL/min >60 [facility] Work Phone: Comment on above: GFR Calc Estimated GFR (MDRD) Non-Af Amer 59 mL/min >60 [facility] Work Phone: Comment on above: Non- GFR Calc Troponin I High Sensitivity 5 pg/mL 3.0-54.0 [facility] Work Phone: Comment on above: Please Note: New Janny t Units and Gender Specific Reference Ranges. For more information see Policy Stat Procedure [place] High Sensitivity Troponin (TNIH) and attachments. Platelets bldon 12-19-2021 Platelets (Bld) [#/Vol] 284 10*3/uL 150-450 [facility] Work Phone: Serum or plasma calcium lexy urement (mass/volume)on 12-19-2021 Calcium [Mass/Vol] 9.4 mg/dL 8.5-10.1 [facility] Work Phone: Serum or plasma creatinine m easurement (mass/volume)on 12-19-2021 Creatinine [Mass/Vol] 0.98 mg/dL 0.55-1.02 [facility] Work Phone: Comment on above: The validity of the calculated GFR & GFRAA in patients over 70 years has not been determined. Clinical correlation is essential. Serum or plasma urea nitroge n measurement (mass/volume)on 12-19-2021 Urea nitrogen [Mass/Vol] 12 mg/dL 7-18 [facility] Work Phone: Thin prep Papanicolaou smear with manual screeningon 12-19-2021 Thin prep Papanicolaou smear with manual screening 8 5-15 [facility] Work Phone: Laboratory - Hematology and Cell countson 11-13-2021 HbA1c (Bld) [Mass fraction] 10.8 % [facility] Work Phone: Absolute lymphocyte counton 11-11-2021 Lymphocytes Auto (Unsp spec) [#/Vol] 1.05 10*3/uL 0.83-4.51 [facility] Work Phone: Basophil percentageon 2021 Bilirubin [Mass/Vol] 0.30 mg/dL 0.20-1.00 [facility] Work Phone: Comment on above: For patients on eltr ombopag therapy, use of Dimension [place] TBIL is not recommended. Cholesterol [Mass/Vol] 141 mg/dL <200 [facility] Work Phone: Comment on above: <200 mg/dL Desirable 200-240 mg/dL Borderline >240 mg/dL High Risk Protein [Mass/Vol] 6.8 g/dL 6.4-8.2 [facility] Work Phone: Triglyceride [Mass/Vol] 120 mg/dL [facility] Work Phone: Comment on above: The drugs N-Acetylcy steine and Metamizole may falsely depress this assay.Serum Triglycerides Reference Interval Normal <150 mg/dL Borderline high 150 - 199 mg/dL High 200 - 499 mg/dL Very High > or = 500 mg/dL Basophils/100 WBC (Bld) 0.6 % 0-1 [facility] Work Phone: [phone] Chloride [Moles/Vol] 96 mmol/L 98-107 [facility]: Eosinophils/100 WBC (Bld) 2.2 % 0-5 [facility] Work Phone: Glucose [Mass/Vol] 411 mg/dL 74-106 [facility] Work Phone: Comment on above: Glucose result great er than or equal to 200 mg/dLsuggests DIABETES MELLITUS per A.D.A. criteria. Neutrophils (Bld) [#/Vol] 7.6 10*3/uL 2.0-7.7 [facility] Work Phone: Neutrophils/100 WBC (Bld) 80.8 % 47-70 [facility] Work Phone: Potassium [Moles/Vol] 4.4 mmol/L 3.5-5.1 [facility] Work [facility]: Sodium [Moles/Vol] 132 mmol/L 136-145 [facility] Work Phone: WBC (Bld) [#/Vol] 9.4 10*3/uL 4.4-11.0 [facility] Work Phone: [phone] Blood erythrocytes count (nu mber/volume)on 11-11-2021 RBC (Bld) [#/Vol] 3.77 10*6/uL 4.2-5.4 [facility] Work Phone: Blood hemoglobin measurement (mass/volume)on 11-11-2021 Hemoglobin (Bld) [Mass/Vol] 9.0 g/dL 12.0-15.0 [facility] Work Phone: Blood lymphocytes/100 leukoc yteson 11-11-2021 Lymphocytes/100 WBC (Bld) 11.1 % 19-41 [facility] Work Phone: Blood monocytes/100 leukocyt eson 11-11-2021 Monocytes/100 WBC (Bld) 4.9 % 0-10 [facility] Work Phone: Blood platelet mean volumeon 11-11-2021 Platelet mean volume (Bld) [Entitic vol] 11.5 fL 6.2-12.0 [facility] Work Phone: Determination of erythrocyte mean corpuscular volume (MCV)on 11-11-2021 MCV (RBC) [Entitic vol] 83.0 fL 81-99 [facility] Work Phone: Direct bilirubinon 2 Bilirubin.direct [Mass/Vol] 0.12 mg/dL 0.00-0.30 [facility] Work Phone: Hematocrit Auto (Bld) [Volum e fraction]on 11-11-2021 Hematocrit (Bld) [Volume fraction] 31.3 % 37-47 [facility] Work Phone: Iron measurement (mass/mass) on 11-11-2021 Iron (Unsp spec) [Mass/Mass] 28 ug/dL 50-170 [facility] Work Phone: Laboratory - Chemistry and C hemistry - challengeon 11-11-2021 ALP [Catalytic activity/Vol] 129 U/L 45-117 [facility] Work Phone: ALT [Catalytic activity/Vol] 27 U/L 13-56 [facility] Work Phone: Globulin (S) [Mass/Vol] 3.3 g/dL 2.2-4.2 [facility] Work Phone: CO2 [Moles/Vol] 27.0 mmol/L 21.0-32.0 [facility] Work Phone: Cobalamin (Vitamin B12) [Mass/Vol] 394 pg/mL 211-911 [facility] Work Phone: Urea nitrogen/Creatinine [Mass ratio] 9.6 mg/mg 10-20 [facility] Work Phone: Laboratory - Hematology and Cell countson 11-11-2021 Erythrocyte distribution width (RBC) [Entitic vol] 43.4 fL 35.1-43.9 [facility] Work Phone: Erythrocyte distribution width (RBC) [Ratio] 14.3 % 11.6-14.6 [facility] Work Phone: Immature granulocytes/100 WBC (Bld) 0.400 % 0.0-0.9 [facility] Work Phone: Comment on above: IG% - Immature Granu locytes (promyelocytes, myelocytes and metamyelocytes) > 1% indicates that a LEFT SHIFT is Present. MCH (RBC) [Entitic mass] 23.9 pg 27.0-32.0 [facility] Work Phone: Nucleated RBC/100 WBC (Bld) [Ratio] 0 % 0-5 [facility] Work Phone: MCHC Auto (RBC) [Mass/Vol]on 11-11-2021 MCHC (RBC) [Mass/Vol] 28.8 g/dL 32-36 [facility] Work Phone: No Panel Informationon 11-11 Estimated GFR (MDRD) Amer 76 mL/min >60 [facility] Work Phone: Comment on above: GFR Calc Estimated GFR (MDRD) Non-Af Amer 62 mL/min >60 [facility] Work Phone: Comment on above: Non- GFR Calc Total Iron Binding Capacity 402 ug/dL 250-450 [facility] Work Phone: Platelets bldon 11-11-2021 Platelets (Bld) [#/Vol] 326 10*3/uL 150-450 [facility] Work Phone: Serum or plasma albumin lexy urement (mass/volume)on 11-11-2021 Albumin [Mass/Vol] 3.5 g/dL 3.2-5.0 [facility] Work Phone: Serum or plasma calcium lexy urement (mass/volume)on 11-11-2021 Calcium [Mass/Vol] 8.9 mg/dL 8.5-10.1 [facility] Work Phone: Serum or plasma cholesterol in HDL measurement (mass/volume)on 11-11-2021 Cholesterol in HDL [Mass/Vol] 75 mg/dL [facility] Work Phone: Comment on above: The drugs N-Acetylcy steine and Metamizole may falsely depress this assay. Reference Range HDL <40 mg/dL Low HDL Cholesterol HDL >or= 60 mg/dL High HDL Cholesterol Serum or plasma cholesterol in VLDL measurement (mass/volume)on 11-11-2021 Cholesterol in VLDL [Mass/Vol] 24 mg/dL 5-40 [facility] Work Phone: Serum or plasma creatinine m easurement (mass/volume)on 11-11-2021 Creatinine [Mass/Vol] 0.94 mg/dL 0.55-1.02 [facility] Work Phone: Comment on above: The validity of the calculated GFR & GFRAA in patients over 70 years has not been determined. Clinical correlation is essential. Serum or plasma ferritin byron surement (mass/volume)on 11-11-2021 Ferritin [Mass/Vol] 14 ng/mL 8-252 [facility] Work Phone: Serum or plasma folate measu rement (mass/volume)on 11-11-2021 Folate [Mass/Vol] 18.40 ng/mL 3.1-55.4 [facility] Work Phone: Serum or plasma low density lipoprotein (LDL) cholesterol measurement (mass/volume)on 11-11-2021 Cholesterol in LDL [Mass/Vol] 42 mg/dL 0-130 [facility] Work Phone: Serum or plasma urea nitroge n measurement (mass/volume)on 11-11-2021 Urea nitrogen [Mass/Vol] 9 mg/dL 7-18 [facility] Work Phone: Thin prep Papanicolaou smear with manual screeningon 11-11-2021 Thin prep Papanicolaou smear with manual screening 19 U/L 15-37 [facility] Work Phone: Thin prep Papanicolaou smear with manual screening 9 5-15 [facility] Work Phone: Whole blood hemoglobin A1c/t otal hemoglobin ratio (mass fraction)on 11-11-2021 HbA1c (Bld) [Mass fraction] 11.2 % 3.8-5.6 [facility] Work Phone: Comment on above: Normal < 5.7 % Predi abetic 5.7 - 6.4 % Diabetic >or= 6.5 % Please note range changes. Basophil percentageon 2021 Chloride [Moles/Vol] 97 mmol/L 98-107 [facility] Work Phone: Glucose [Mass/Vol] 335 mg/dL 74-106 [facility] Work Phone: Comment on above: Glucose result great er than or equal to 200 mg/dLsuggests DIABETES MELLITUS per A.D.A. criteria. Potassium [Moles/Vol] 4.1 mmol/L 3.5-5.1 [facility] Work Phone: Sodium [Moles/Vol] 135 mmol/L 136-145 [facility] Work Phone: Laboratory - Chemistry and C hemistry - challengeon 10-31-2021 CO2 [Moles/Vol] 31.0 mmol/L 21.0-32.0 [facility] Work Phone: Urea nitrogen/Creatinine [Mass ratio] 10.4 mg/mg 10-20 [facility] Work Phone: No Panel Informationon 10-31 Estimated GFR (MDRD) Amer 74 mL/min >60 [facility] Work Phone: Comment on above: GFR Calc Estimated GFR (MDRD) Non-Af Amer 61 mL/min >60 [facility] Work Phone: Comment on above: Non- GFR Calc Serum or plasma calcium lexy urement (mass/volume)on 10-31-2021 Calcium [Mass/Vol] 9.3 mg/dL 8.5-10.1 [facility] Work Phone: Serum or plasma creatinine m easurement (mass/volume)on 10-31-2021 Creatinine [Mass/Vol] 0.96 mg/dL 0.55-1.02 [facility] Work Phone: Comment on above: The validity of the calculated GFR & GFRAA in patients over 70 years has not been determined. Clinical correlation is essential. Serum or plasma urea nitroge n measurement (mass/volume)on 10-31-2021 Urea nitrogen [Mass/Vol] 10 mg/dL 7-18 [facility] Work Phone: Thin prep Papanicolaou smear with manual screeningon 10-31-2021 Thin prep Papanicolaou smear with manual screening 7 5-15 [facility] Work Phone: Absolute lymphocyte counton 10-23-2021 Lymphocytes Auto (Unsp spec) [#/Vol] 1.71 10*3/uL 0.83-4.51 [facility] Work Phone: Basophil percentageon 2021 Basophils/100 WBC (Bld) 0.4 % 0-1 [facility] Work Phone: Bilirubin [Mass/Vol] 0.30 mg/dL 0.20-1.00 [facility] Work Phone: Comment on above: For patients on eltr ombopag therapy, use of Dimension [place] TBIL is not recommended. Chloride [Moles/Vol] 94 mmol/L 98-107 [facility] Work Phone: Eosinophils/100 WBC (Bld) 0.3 % 0-5 [facility] Work Phone: Glucose [Mass/Vol] 366 mg/dL 74-106 [facility] Work Phone: Comment on above: Glucose result great er than or equal to 200 mg/dLsuggests DIABETES MELLITUS per A.D.A. criteria. Neutrophils (Bld) [#/Vol] 11.8 10*3/uL 2.0-7.7 [facility] Work Phone: Neutrophils/100 WBC (Bld) 80.3 % 47-70 [facility] Work Phone: Potassium [Moles/Vol] 3.9 mmol/L 3.5-5.1 [facility] Work Phone: Protein [Mass/Vol] 6.9 g/dL 6.4-8.2 [facility] Work Phone: Sodium [Moles/Vol] 131 mmol/L 136-145 [facility] Work Phone: WBC (Bld) [#/Vol] 14.7 10*3/uL 4.4-11.0 [facility] Work Phone: Blood erythrocytes count (nu mber/volume)on 10-23-2021 RBC (Bld) [#/Vol] 3.49 10*6/uL 4.2-5.4 [facility] Work Phone: Blood hemoglobin measurement (mass/volume)on 10-23-2021 Hemoglobin (Bld) [Mass/Vol] 8.6 g/dL 12.0-15.0 [facility] Work Phone: Blood lymphocytes/100 leukoc yteson 10-23-2021 Lymphocytes/100 WBC (Bld) 11.6 % 19-41 [facility] Work Phone: [phone] Blood monocytes/100 leukocyt eson 10-23-2021 Monocytes/100 WBC (Bld) 6.3 % 0-10 [facility] Work Phone: Blood platelet mean volumeon 10-23-2021 Platelet mean volume (Bld) [Entitic vol] 11.5 fL 6.2-12.0 [facility] Work Phone: Determination of erythrocyte mean corpuscular volume (MCV)on 10-23-2021 MCV (RBC) [Entitic vol] 79.7 fL 81-99 [facility] Work Phone: Glucose Glucometer (BldC) [M ass/Vol]on 10-23-2021 Glucose [Mass/Vol] 313 mg/dL 74-106 [facility] Work Phone: Comment on above: MANAGEMENT OF PATIEN T CARE PER NURSING PROTOCOL Hematocrit Auto (Bld) [Volum e fraction]on 10-23-2021 Hematocrit (Bld) [Volume fraction] 27.8 % 37-47 [facility] Work Phone: Laboratory - Chemistry and C hemistry - challengeon 10-23-2021 ALP [Catalytic activity/Vol] 117 U/L 45-117 [facility] Work Phone: ALT [Catalytic activity/Vol] 20 U/L 13-56 [facility] Work Phone: CO2 [Moles/Vol] 31.0 mmol/L 21.0-32.0 [facility] Work Phone: Globulin (S) [Mass/Vol] 3.4 g/dL 2.2-4.2 [facility] Work Phone: Urea nitrogen/Creatinine [Mass ratio] 25.6 mg/mg 10-20 [facility] Work Phone: Laboratory - Hematology and Cell countson 10-23-2021 Erythrocyte distribution width (RBC) [Entitic vol] 41.2 fL 35.1-43.9 [facility] Work Phone: Erythrocyte distribution width (RBC) [Ratio] 14.5 % 11.6-14.6 [facility] Work Phone: Immature granulocytes/100 WBC (Bld) 1.100 % 0.0-0.9 [facility] Work Phone: Comment on above: IG% - Immature Granu locytes (promyelocytes, myelocytes and metamyelocytes) > 1% indicates that a LEFT SHIFT is Present. MCH (RBC) [Entitic mass] 24.6 pg 27.0-32.0 [facility] Work Phone: Nucleated RBC/100 WBC (Bld) [Ratio] 0 % 0-5 [facility] Work Phone: MCHC Auto (RBC) [Mass/Vol]on 03-17-2022 MCHC (RBC) [Mass/Vol] 30.9 g/dL 32-36 [facility] Work Phone: No Panel Informationon 10-23 Estimated Creatinine Clearance Calc 50.00 ml/min [facility] Work Phone: Estimated GFR (MDRD) Amer 72 mL/min >60 [facility] Work Phone: Comment on above: GFR Calc Estimated GFR (MDRD) Non-Af Amer 60 mL/min >60 [facility] Work Phone: Comment on above: Non- GFR Calc Platelets bldon 10-23-2021 Platelets (Bld) [#/Vol] 370 10*3/uL 150-450 [facility] Work Phone: Serum or plasma albumin lexy urement (mass/volume)on 10-23-2021 Albumin [Mass/Vol] 3.5 g/dL 3.2-5.0 [facility] Work Phone: Serum or plasma albumin/glob ulin mass ratioon 10-23-2021 Albumin/Globulin [Mass ratio] 1.0 {ratio} 0.9-2.4 [facility] Work Phone: Serum or plasma calcium lexy urement (mass/volume)on 10-23-2021 Calcium [Mass/Vol] 9.4 mg/dL 8.5-10.1 [facility] Work Phone: Serum or plasma creatinine m easurement (mass/volume)on 10-23-2021 Creatinine [Mass/Vol] 0.98 mg/dL 0.55-1.02 [facility] Work Phone: Comment on above: The validity of the calculated GFR & GFRAA in patients over 70 years has not been determined. Clinical correlation is essential. Serum or plasma urea nitroge n measurement (mass/volume)on 10-23-2021 Urea nitrogen [Mass/Vol] 25 mg/dL 7-18 [facility] Work Phone: Thin prep Papanicolaou smear with manual screeningon 10-23-2021 Thin prep Papanicolaou smear with manual screening 11 U/L 15-37 [facility] Work Phone: Thin prep Papanicolaou smear with manual screening 6 5-15 [facility] Work Phone: No Panel Informationon 10-22 Streptococcus pneumoniae Antigen (M [facility] Work Phone: Laboratory - Chemistry and C hemistry - challengeon 10-21-2021 Natriuretic peptide B (Bld) [Mass/Vol] 117.5 pg/mL 0-100 [facility] Work Phone: Laboratory - Microbiology an d Antimicrobial susceptibilityon 10-21-2021 Bacteria identified Cx Nom (Bld) No growth in [address] [facility] Work Phone: No Panel Informationon 10-21 D-Dimer Quantitative (PE/DVT) 0.65 FEU/ug/m 0.27-0.49 [facility] Work Phone: Comment on above: D-Dimer ELEVATED (>0 .49): Additional studies and clinicalassessments are indicated to conclude diagnosis of:Deep Vein Thrombosis (DVT) or Pulmonary Embolism (PE)CRITICAL VALUE VERIFIED. CALLED TO Alonzo RAMIRES RN ER10/21/21 Bessy Harris.RESULTS READ BACK BY SAME. Troponin I High Sensitivity 14 pg/mL 3.0-54.0 [facility] Work Phone: Comment on above: Please Note: New Janny t Units and Gender Specific Reference Ranges. For more information see Policy Stat Procedure [place] High Sensitivity Troponin (TNIH) and attachments. Absolute lymphocyte counton 10-15-2021 Lymphocytes Auto (Unsp spec) [#/Vol] 1.16 10*3/uL 0.83-4.51 [facility] Work Phone: Basophil percentageon 2021 Basophils/100 WBC (Bld) 0.7 % 0-1 [facility] Work Phone: Chloride [Moles/Vol] 96 mmol/L 98-107 [facility] Work [facility]: Eosinophils/100 WBC (Bld) 1.9 % 0-5 [facility] Work Phone: Glucose [Mass/Vol] 390 mg/dL 74-106 [facility] Work Phone: Comment on above: Glucose result great er than or equal to 200 mg/dLsuggests DIABETES MELLITUS per A.D.A. criteria. Neutrophils (Bld) [#/Vol] 8.9 10*3/uL 2.0-7.7 [facility] Work Phone: Neutrophils/100 WBC (Bld) 80.6 % 47-70 [facility] Work Phone: Potassium [Moles/Vol] 3.5 mmol/L 3.5-5.1 [facility] Work Phone: Sodium [Moles/Vol] 132 mmol/L 136-145 [facility] Work Phone: WBC (Bld) [#/Vol] 11.0 10*3/uL 4.4-11.0 [facility] Work Phone: Blood erythrocytes count (nu mber/volume)on 10-15-2021 RBC (Bld) [#/Vol] 3.39 10*6/uL 4.2-5.4 [facility] Work Phone: Blood hemoglobin measurement (mass/volume)on 10-15-2021 Hemoglobin (Bld) [Mass/Vol] 8.5 g/dL 12.0-15.0 [facility] Work Phone: Blood lymphocytes/100 leukoc yteson 10-15-2021 Lymphocytes/100 WBC (Bld) 10.5 % 19-41 [facility] Work Phone: [phone] Blood monocytes/100 leukocyt eson 10-15-2021 Monocytes/100 WBC (Bld) 5.6 % 0-10 [facility] Work Phone: Blood platelet mean volumeon 10-15-2021 Platelet mean volume (Bld) [Entitic vol] 11.1 fL 6.2-12.0 [facility] Work Phone: Determination of erythrocyte mean corpuscular volume (MCV)on 10-15-2021 MCV (RBC) [Entitic vol] 81.7 fL 81-99 [facility] Work Phone: Glucose Glucometer (BldC) [M ass/Vol]on 10-15-2021 Glucose [Mass/Vol] 165 mg/dL 74-106 [facility] Work Phone: Comment on above: MANAGEMENT OF PATIEN T CARE PER NURSING PROTOCOL Hematocrit Auto (Bld) [Volum e fraction]on 10-15-2021 Hematocrit (Bld) [Volume fraction] 27.7 % 37-47 [facility] Work Phone: Laboratory - Chemistry and C hemistry - challengeon 10-15-2021 CO2 [Moles/Vol] 31.0 mmol/L 21.0-32.0 [facility] Work Phone: Natriuretic peptide B (Bld) [Mass/Vol] 78.7 pg/mL 0-100 [facility] Work Phone: Urea nitrogen/Creatinine [Mass ratio] 9.6 mg/mg 10-20 [facility] Work Phone: Laboratory - Hematology and Cell countson 10-15-2021 Erythrocyte distribution width (RBC) [Entitic vol] 40.0 fL 35.1-43.9 [facility] Work Phone: Erythrocyte distribution width (RBC) [Ratio] 13.3 % 11.6-14.6 [facility] Work Phone: Immature granulocytes/100 WBC (Bld) 0.700 % 0.0-0.9 [facility] Work Phone: Comment on above: IG% - Immature Granu locytes (promyelocytes, myelocytes and metamyelocytes) > 1% indicates that a LEFT SHIFT is Present. MCH (RBC) [Entitic mass] 25.1 pg 27.0-32.0 [facility] Work Phone: Nucleated RBC/100 WBC (Bld) [Ratio] 0 % 0-5 [facility] Work Phone: MCHC Auto (RBC) [Mass/Vol]on 10-15-2021 MCHC (RBC) [Mass/Vol] 30.7 g/dL 32-36 [facility] Work Phone: No Panel Informationon 10-15 Troponin I High Sensitivity 13 pg/mL 3.0-54.0 [facility] Work Phone: Comment on above: Please Note: New Janny t Units and Gender Specific Reference Ranges. For more information see Policy Stat Procedure [place] High Sensitivity Troponin (TNIH) and attachments. Estimated Creatinine Clearance Calc 36.00 ml/min [facility] Work Phone: Estimated GFR (MDRD) Amer 60 mL/min >60 [facility] Work Phone: Comment on above: GFR Calc Estimated GFR (MDRD) Non-Af Amer 50 mL/min >60 [facility] Work Phone: Comment on above: Non- GFR Calc Platelets bldon 10-15-2021 Platelets (Bld) [#/Vol] 281 10*3/uL 150-450 [facility] Work Phone: Serum or plasma calcium lexy urement (mass/volume)on 10-15-2021 Calcium [Mass/Vol] 8.9 mg/dL 8.5-10.1 [facility] Work Phone: Serum or plasma creatinine m easurement (mass/volume)on 10-15-2021 Creatinine [Mass/Vol] 1.15 mg/dL 0.55-1.02 [facility] Work Phone: Comment on above: The validity of the calculated GFR & GFRAA in patients over 70 years has not been determined. Clinical correlation is essential. Serum or plasma urea nitroge n measurement (mass/volume)on 10-15-2021 Urea nitrogen [Mass/Vol] 11 mg/dL 7-18 [facility] Work Phone: Thin prep Papanicolaou smear with manual screeningon 10-15-2021 Thin prep Papanicolaou smear with manual screening 5 5-15 [facility] Work Phone: Absolute lymphocyte counton 10-13-2021 Lymphocytes Auto (Unsp spec) [#/Vol] 1.34 10*3/uL 0.83-4.51 [facility] Work Phone: Basophil percentageon 2021 Basophils/100 WBC (Bld) 0.9 % 0-1 [facility] Work Phone: Chloride [Moles/Vol] 98 mmol/L 98-107 [facility] Work Phone: Eosinophils/100 WBC (Bld) 3.0 % 0-5 [facility] Work Phone: Glucose [Mass/Vol] 319 mg/dL 74-106 [facility] Work Phone: Comment on above: Glucose result great er than or equal to 200 mg/dLsuggests DIABETES MELLITUS per A.D.A. criteria. Neutrophils (Bld) [#/Vol] 5.9 10*3/uL 2.0-7.7 [facility] Work Phone: Neutrophils/100 WBC (Bld) 71.9 % 47-70 [facility] Work Phone: [phone] Potassium [Moles/Vol] 3.9 mmol/L 3.5-5.1 [facility] Work Phone: Sodium [Moles/Vol] 135 mmol/L 136-145 [facility] Work Phone: WBC (Bld) [#/Vol] 8.2 10*3/uL 4.4-11.0 [facility] Work Phone: [phone] Blood erythrocytes count (nu mber/volume)on 10-13-2021 RBC (Bld) [#/Vol] 3.56 10*6/uL 4.2-5.4 [facility] Work Phone: Blood hemoglobin measurement (mass/volume)on 10-13-2021 Hemoglobin (Bld) [Mass/Vol] 8.7 g/dL 12.0-15.0 [facility] Work Phone: Blood lymphocytes/100 leukoc yteson 10-13-2021 Lymphocytes/100 WBC (Bld) 16.3 % 19-41 [facility] Work Phone: Blood monocytes/100 leukocyt eson 10-13-2021 Monocytes/100 WBC (Bld) 7.4 % 0-10 [facility] Work Phone: Blood platelet mean volumeon 10-13-2021 Platelet mean volume (Bld) [Entitic vol] 11.2 fL 6.2-12.0 [facility] Work Phone: Determination of erythrocyte mean corpuscular volume (MCV)on 10-13-2021 MCV (RBC) [Entitic vol] 80.9 fL 81-99 [facility] Work Phone: Glucose Glucometer (BldC) [M ass/Vol]on 10-13-2021 Glucose [Mass/Vol] 350 mg/dL 74-106 [facility] Work Phone: Comment on above: MANAGEMENT OF PATIEN T CARE PER NURSING PROTOCOL Hematocrit Auto (Bld) [Volum e fraction]on 10-13-2021 Hematocrit (Bld) [Volume fraction] 28.8 % 37-47 [facility] Work Phone: Laboratory - Chemistry and C hemistry - challengeon 10-13-2021 CO2 [Moles/Vol] 31.0 mmol/L 21.0-32.0 [facility] Work Phone: Urea nitrogen/Creatinine [Mass ratio] 17.8 mg/mg 10-20 [facility] Work Phone: Laboratory - Hematology and Cell countson 10-13-2021 Erythrocyte distribution width (RBC) [Entitic vol] 40.8 fL 35.1-43.9 [facility] Work Phone: Erythrocyte distribution width (RBC) [Ratio] 13.8 % 11.6-14.6 [facility] Work Phone: Immature granulocytes/100 WBC (Bld) 0.500 % 0.0-0.9 [facility] Work Phone: Comment on above: IG% - Immature Granu locytes (promyelocytes, myelocytes and metamyelocytes) > 1% indicates that a LEFT SHIFT is Present. MCH (RBC) [Entitic mass] 24.4 pg 27.0-32.0 [facility] Work Phone: Nucleated RBC/100 WBC (Bld) [Ratio] 0 % 0-5 [facility] Work Phone: MCHC Auto (RBC) [Mass/Vol]on 10-13-2021 MCHC (RBC) [Mass/Vol] 30.2 g/dL 32-36 [facility] Work Phone: No Panel Informationon 10-13 Estimated Creatinine Clearance Calc 49.29 ml/min [facility] Work Phone: Estimated GFR (MDRD) Amer 86 mL/min >60 [facility] Work Phone: Comment on above: GFR Calc Estimated GFR (MDRD) Non-Af Amer 71 mL/min >60 [facility] Work Phone: Comment on above: Non- GFR Calc Platelets bldon 10-13-2021 Platelets (Bld) [#/Vol] 285 10*3/uL 150-450 [facility] Work Phone: Serum or plasma calcium lexy urement (mass/volume)on 10-13-2021 Calcium [Mass/Vol] 8.8 mg/dL 8.5-10.1 [facility] Work Phone: Serum or plasma creatinine m easurement (mass/volume)on 10-13-2021 Creatinine [Mass/Vol] 0.84 mg/dL 0.55-1.02 [facility] Work Phone: Comment on above: The validity of the calculated GFR & GFRAA in patients over 70 years has not been determined. Clinical correlation is essential. Serum or plasma urea nitroge n measurement (mass/volume)on 10-13-2021 Urea nitrogen [Mass/Vol] 15 mg/dL 7-18 [facility] Work Phone: Thin prep Papanicolaou smear with manual screeningon 10-13-2021 Thin prep Papanicolaou smear with manual screening 6 5-15 [facility] Work Phone: Whole blood hemoglobin A1c/t otal hemoglobin ratio (mass fraction)on 10-13-2021 HbA1c (Bld) [Mass fraction] 11.4 % 3.8-5.6 [facility] Work Phone: Comment on above: Normal < 5.7 % Predi abetic 5.7 - 6.4 % Diabetic >or= 6.5 % Please note range changes. Laboratory - Chemistry and C hemistry - challengeon 10-11-2021 Natriuretic peptide B (Bld) [Mass/Vol] 154.1 pg/mL 0-100 [facility] Work Phone: No Panel Informationon 10-11 Troponin I High Sensitivity 14 pg/mL 3.0-54.0 [facility] Work Phone: Comment on above: Please Note: New Janny t Units and Gender Specific Reference Ranges. For more information see Policy Stat Procedure [place] High Sensitivity Troponin (TNIH) and attachments. Influenza Types A,B Direct FA (MARY) [facility] Work Phone: Laboratory - Hematology and Cell countson 08-19-2021 HbA1c (Bld) [Mass fraction] 9.3 % [facility] Work Phone: Absolute lymphocyte counton 08-12-2021 Lymphocytes Auto (Unsp spec) [#/Vol] 1.27 10*3/uL 0.83-4.51 [facility] Work Phone: Basophil percentageon 2021 Basophil percentage 3.5 mg/dL 2.5-4.9 [facility] Work Phone: Basophils/100 WBC (Bld) 0.5 % 0-1 [facility] Work Phone: Chloride [Moles/Vol] 95 mmol/L 98-107 [facility] Work [facility]: Eosinophils/100 WBC (Bld) 0.3 % 0-5 [facility] Work Phone: [phone] Glucose [Mass/Vol] 354 mg/dL 74-106 [facility] Work Phone: Comment on above: Glucose result great er than or equal to 200 mg/dLsuggests DIABETES MELLITUS per A.D.A. criteria.Please note revised GLUCOSE reference range effective 2017. Neutrophils (Bld) [#/Vol] 9.4 10*3/uL 2.0-7.7 [facility] Work Phone: [phone] Neutrophils/100 WBC (Bld) 80.8 % 47-70 [facility] Work Phone: Potassium [Moles/Vol] 3.8 mmol/L 3.5-5.1 [facility] Work Phone: [phone] Sodium [Moles/Vol] 134 mmol/L 136-145 [facility] Work Phone: WBC (Bld) [#/Vol] 11.7 10*3/uL 4.4-11.0 [facility] Work Phone: [phone] Blood erythrocytes count (nu mber/volume)on 08-12-2021 RBC (Bld) [#/Vol] 3.60 10*6/uL 4.2-5.4 [facility] Work Phone: [phone] Blood hemoglobin measurement (mass/volume)on 08-12-2021 Hemoglobin (Bld) [Mass/Vol] 9.2 g/dL 12.0-15.0 [facility] Work Phone: [phone] Blood lymphocytes/100 leukoc yteson 08-12-2021 Lymphocytes/100 WBC (Bld) 10.9 % 19-41 [facility] Work Phone: Blood monocytes/100 leukocyt eson 08-12-2021 Monocytes/100 WBC (Bld) 6.8 % 0-10 [facility] Work Phone: Blood platelet mean volumeon 08-12-2021 Platelet mean volume (Bld) [Entitic vol] 11.3 fL 6.2-12.0 [facility] Work Phone: Determination of erythrocyte mean corpuscular volume (MCV)on 08-12-2021 MCV (RBC) [Entitic vol] 84.4 fL 81-99 [facility] Work Phone: Glucose Glucometer (BldC) [M ass/Vol]on 08-12-2021 Glucose [Mass/Vol] 254 mg/dL 70-110 [facility] Work Phone: Comment on above: MANAGEMENT OF PATIEN T CARE PER NURSING PROTOCOL Hematocrit Auto (Bld) [Volum e fraction]on 08-12-2021 Hematocrit (Bld) [Volume fraction] 30.4 % 37-47 [facility] Work Phone: Laboratory - Chemistry and C hemistry - challengeon 08-12-2021 CO2 [Moles/Vol] 31.0 mmol/L 21.0-32.0 [facility] Work Phone: Magnesium [Mass/Vol] 2.4 mg/dL 1.6-2.6 [facility] Work Phone: Urea nitrogen/Creatinine [Mass ratio] 23.1 mg/mg 10-20 [facility] Work Phone: Laboratory - Hematology and Cell countson 08-12-2021 Erythrocyte distribution width (RBC) [Entitic vol] 40.9 fL 35.1-43.9 [facility] Work Phone: Erythrocyte distribution width (RBC) [Ratio] 13.3 % 11.6-14.6 [facility] Work Phone: Immature granulocytes/100 WBC (Bld) 0.700 % 0.0-0.9 [facility] Work Phone: Comment on above: IG% - Immature Granu locytes (promyelocytes, myelocytes and metamyelocytes) > 1% indicates that a LEFT SHIFT is Present. MCH (RBC) [Entitic mass] 25.6 pg 27.0-32.0 [facility] Work Phone: Nucleated RBC/100 WBC (Bld) [Ratio] 0 % 0-5 [facility] Work Phone: MCHC Auto (RBC) [Mass/Vol]on 08-12-2021 MCHC (RBC) [Mass/Vol] 30.3 g/dL 32-36 [facility] Work Phone: No Panel Informationon 08-12 Estimated Creatinine Clearance Calc 41.82 ml/min [facility] Work Phone: Estimated GFR (MDRD) Amer 71 mL/min >60 [facility] Work Phone: Comment on above: GFR Calc Estimated GFR (MDRD) Non-Af Amer 59 mL/min >60 [facility] Work Phone: Comment on above: Non- GFR Calc Platelets bldon 08-12-2021 Platelets (Bld) [#/Vol] 328 10*3/uL 150-450 [facility] Work Phone: Serum or plasma calcium lexy urement (mass/volume)on 08-12-2021 Calcium [Mass/Vol] 9.9 mg/dL 8.5-10.1 [facility] Work Phone: Serum or plasma creatinine m easurement (mass/volume)on 08-12-2021 Creatinine [Mass/Vol] 0.99 mg/dL 0.55-1.02 [facility] Work Phone: Comment on above: The validity of the calculated GFR & GFRAA in patients over 70 years has not been determined. Clinical correlation is essential. Serum or plasma urea nitroge n measurement (mass/volume)on 08-12-2021 Urea nitrogen [Mass/Vol] 23 mg/dL 7-18 [facility] Work Phone: Thin prep Papanicolaou smear with manual screeningon 08-12-2021 Thin prep Papanicolaou smear with manual screening 8 5-15 [facility] Work Phone: Laboratory - Chemistry and C hemistry - challengeon 08-11-2021 Natriuretic peptide B (Bld) [Mass/Vol] 103.9 pg/mL 0-100 [facility] Work Phone: No Panel Informationon 08-11 Troponin I High Sensitivity 269 pg/mL 3.0-54.0 [facility] Work Phone: Comment on above: Critical Result(s) C alled at: 08:43:10 08/11/2021 by: Sandra Ness. Results read back by same. Please Note: New Test Units and Gender Specific Reference Ranges. For more information see Policy Stat Procedure [place] High Sensitivity Troponin (TNIH) and attachments. Absolute lymphocyte counton 08-10-2021 Lymphocytes Auto (Unsp spec) [#/Vol] 1.68 10*3/uL 0.83-4.51 [facility] Work Phone: Basophil percentageon 2021 Basophils/100 WBC (Bld) 0.7 % 0-1 [facility] Work Phone: Chloride [Moles/Vol] 101 mmol/L 98-107 [facility] Work Phone: Eosinophils/100 WBC (Bld) 2.9 % 0-5 [facility] Work Phone: Glucose [Mass/Vol] 201 mg/dL 74-106 [facility] Work Phone: Comment on above: Glucose result great er than or equal to 200 mg/dLsuggests DIABETES MELLITUS per A.D.A. criteria.Please note revised GLUCOSE reference range effective 2017. Neutrophils (Bld) [#/Vol] 6.2 10*3/uL 2.0-7.7 [facility] Work Phone: [phone] Neutrophils/100 WBC (Bld) 70.4 % 47-70 [facility] Work Phone: Potassium [Moles/Vol] 3.7 mmol/L 3.5-5.1 [facility] Work Phone: Sodium [Moles/Vol] 141 mmol/L 136-145 [facility] Work Phone: WBC (Bld) [#/Vol] 8.8 10*3/uL 4.4-11.0 [facility] Work Phone: Blood erythrocytes count (nu mber/volume)on 08-10-2021 RBC (Bld) [#/Vol] 3.67 10*6/uL 4.2-5.4 [facility] Work Phone: Blood hemoglobin measurement (mass/volume)on 08-10-2021 Hemoglobin (Bld) [Mass/Vol] 9.4 g/dL 12.0-15.0 [facility] Work Phone: Blood lymphocytes/100 leukoc yteson 08-10-2021 Lymphocytes/100 WBC (Bld) 19.2 % 19-41 [facility] Work Phone: Blood monocytes/100 leukocyt eson 08-10-2021 Monocytes/100 WBC (Bld) 6.3 % 0-10 [facility] Work Phone: Blood platelet mean volumeon 08-10-2021 Platelet mean volume (Bld) [Entitic vol] 11.0 fL 6.2-12.0 [facility] Work Phone: Determination of erythrocyte mean corpuscular volume (MCV)on 08-10-2021 MCV (RBC) [Entitic vol] 86.4 fL 81-99 [facility] Work Phone: Glucose Glucometer (BldC) [M ass/Vol]on 08-10-2021 Glucose [Mass/Vol] 206 mg/dL 70-110 [facility] Work Phone: Comment on above: MANAGEMENT OF PATIEN T CARE PER NURSING PROTOCOL Hematocrit Auto (Bld) [Volum e fraction]on 08-10-2021 Hematocrit (Bld) [Volume fraction] 31.7 % 37-47 [facility] Work Phone: Laboratory - Chemistry and C hemistry - challengeon 08-10-2021 CO2 [Moles/Vol] 33.0 mmol/L 21.0-32.0 [facility] Work Phone: Urea nitrogen/Creatinine [Mass ratio] 11.2 mg/mg 10-20 [facility] Work Phone: Laboratory - Hematology and Cell countson 08-10-2021 Erythrocyte distribution width (RBC) [Entitic vol] 41.1 fL 35.1-43.9 [facility] Work Phone: Erythrocyte distribution width (RBC) [Ratio] 13.2 % 11.6-14.6 [facility] Work Phone: Immature granulocytes/100 WBC (Bld) 0.500 % 0.0-0.9 [facility] Work Phone: Comment on above: IG% - Immature Granu locytes (promyelocytes, myelocytes and metamyelocytes) > 1% indicates that a LEFT SHIFT is Present. MCH (RBC) [Entitic mass] 25.6 pg 27.0-32.0 [facility] Work Phone: Nucleated RBC/100 WBC (Bld) [Ratio] 0 % 0-5 [facility] Work Phone: MCHC Auto (RBC) [Mass/Vol]on 08-10-2021 MCHC (RBC) [Mass/Vol] 29.7 g/dL 32-36 [facility] Work Phone: No Panel Informationon 08-10 Estimated Creatinine Clearance Calc 46.52 ml/min [facility] Work Phone: Estimated GFR (MDRD) Amer 80 mL/min >60 [facility] Work Phone: Comment on above: GFR Calc Estimated GFR (MDRD) Non-Af Amer 67 mL/min >60 [facility] Work Phone: Comment on above: Non- GFR Calc Platelets bldon 08-10-2021 Platelets (Bld) [#/Vol] 311 10*3/uL 150-450 [facility] Work Phone: Serum or plasma calcium lexy urement (mass/volume)on 08-10-2021 Calcium [Mass/Vol] 9.3 mg/dL 8.5-10.1 [facility] Work Phone: Serum or plasma creatinine m easurement (mass/volume)on 08-10-2021 Creatinine [Mass/Vol] 0.89 mg/dL 0.55-1.02 [facility] Work Phone: Comment on above: The validity of the calculated GFR & GFRAA in patients over 70 years has not been determined. Clinical correlation is essential. Serum or plasma urea nitroge n measurement (mass/volume)on 08-10-2021 Urea nitrogen [Mass/Vol] 10 mg/dL 7-18 [facility] Work Phone: Thin prep Papanicolaou smear with manual screeningon 08-10-2021 Thin prep Papanicolaou smear with manual screening 7 5-15 [facility] Work Phone: No Panel Informationon 08-09 Influenza Types A,B Direct FA (MARY) [facility] Work Phone: Laboratory - Chemistry and C hemistry - challengeon 08-08-2021 Natriuretic peptide B (Bld) [Mass/Vol] 155.2 pg/mL 0-100 [facility] Work Phone: No Panel Informationon 08-08 Troponin I High Sensitivity 12 pg/mL 3.0-54.0 [facility] Work Phone: Comment on above: Please Note: New Janny t Units and Gender Specific Reference Ranges. For more information see Policy Stat Procedure [place] High Sensitivity Troponin (TNIH) and attachments. Laboratory - Microbiology an d Antimicrobial susceptibilityon 07-25-2021 SARS-CoV-2 (COVID-19) RNA GENTRY+probe Ql (Unsp spec) Not detected [facility] Work Phone: CR Elbow 3+ Views Righton CR Elbow 3+ Views Right Patient Name: JEANNA MCNEAL Diagnostic Radiology ACCESSION EXAM DATE/TIME PROCEDURE ORDERING PROVIDER [id number] 10/17/2020 10:40 EST CR Elbow 3+ Views Right MD BARRY DEREK J CPT code 01523 Reason For Exam (CR Elbow 3+ Views [...] Transcribed Date and Time: 10/17/2020 8:01 Normal [facility] XR ELBOW RIGHT (MIN 3 VIEWS) on 10-17-2020 [id number] ACCESSION EXAM DATE/TIME PROCEDURE ORDERING PROVIDER [id number] 10/17/2020 10:40 EST CR Elbow 3+ Views Right MD BARRY DEREK J CPT code 27971 Reason For Exam (CR Elbow 3+ Views [...] J Transcribed Date and Time: 10/17/2020 8:01 [facility] Work Phone: [facility] Incoming Radiology Results From [facility] - 10/17/2020 8:02 PM EST Patient Name: JEANNA VARGAS Diagnostic Radiology ACCESSION EXAM DATE/TIME PROCEDURE ORDERING PROVIDER [id number] 10/17/2020 10:40 EST CR Elbow 3+ Views Right MD BARRY DEREK J CPT code 23330 Reason For Exam (CR Elbow 3+ Views [...] J Transcribed Date and Time: 10/17/2020 8:01 [facility] Work Phone: CR Elbow 3+ Views Righton CR Elbow 3+ Views Right Patient Name: JEANNA MCNEAL Diagnostic Radiology ACCESSION EXAM DATE/TIME PROCEDURE ORDERING PROVIDER [id number] 08/15/2020 08:19 EST CR Elbow 3+ Views Right MD BARRY DEREK J CPT code 76596 Reason For Exam (CR Elbow 3+ Views [...] 1.2 cm. There is large elbow joint effusion/hemarthrosis. Small enthesophyte seen along the medial and lateral epicondyle. Small osteophyte seen along the coronoid process. Soft tissue swelling posterior elbow. Impression: Comminuted predominantly three-part fracture of the olecranon with significant displacement. Report Dictated on Workstation: [id number] Final Dictating Physician: MD WELCH ANTHONY J Signed Date and Time: 08/15/2020 9:23 am Signed by: MD WELCH ANTHONY J Transcribed Date and Time: 08/15/2020 9:24 Normal [facility] XR ELBOW RIGHT (MIN 3 VIEWS) on 08-15-2020 Patient Name: JEANNA VARGAS Diagnostic Radiology ACCESSION EXAM DATE/TIME PROCEDURE ORDERING PROVIDER [id number] 08/15/2020 08:19 EST CR Elbow 3+ Views Right MD BARRY DEREK J CPT code 16748 Reason For Exam (CR Elbow 3+ Views [...] 1.2 cm. There is large elbow joint effusion/hemarthrosis. Small enthesophyte seen along the medial and [...] J Transcribed Date and Time: 08/15/2020 9:24 [facility] [place] Sally Cha Incoming Radiology Results From [facility] - 08/15/2020 9:24 AM EST Patient Name: JEANNA VARGAS Diagnostic Radiology ACCESSION EXAM DATE/TIME PROCEDURE ORDERING PROVIDER [id number] 08/15/2020 08:19 EST CR Elbow 3+ Views Right MD BARRY DEREK J CPT code 40381 Reason For Exam (CR Elbow 3+ Views [...] 1.2 cm. There is large elbow joint effusion/hemarthrosis. Small enthesophyte seen along the medial and [...] J Transcribed Date and Time: 08/15/2020 9:24 [facility] [place] Lab Report: Bedside Glucoseo n 08-18-2017 Glucose 235 mg/dL High 70-110 [facility] Work Phone: Office Visit: bia Palmer 03-18-2017 Dietary management education, guidance, and counseling (procedure) yes Invalid Interpretation Code [facility] Work Phone: Documentation of current medications (procedure) Done Invalid Interpretation Code [facility] Work Phone: Fall risk assessment No Invalid Interpretation Code [facility] Work Phone: Protein mass conc Done [facility] Work Phone: Protein mass conc yes [facility] Work Phone: Smoking cessation education (procedure) yes Invalid Interpretation Code [facility] Work Phone: Tobacco smoking status NHIS Never Invalid Interpretation Code [facility] Work Phone: Tobacco smoking status NHIS Current every day smoker [facility] Work Phone: Tobacco use CPHS Current every day smoker Invali d Interpretation Code [facility] Work Phone: Lab Report: Bedside Glucoseo n 10-23-2016 Glucose mass conc 177 mg/dL High 70-110 [facility] Work Phone: Lab Report: Hemoglobin A1con 10-15-2016 Hemoglobin A1c/Hemoglobin.total mass fraction (Bld) 8.7 % High 4.2-6.3 [facility] Work Phone: Otheron 07-26-2007 CONVERTED ELECTRONIC SIGNATURE EXTERNAL CONSULT, PATHOLOGIST (Electronic signature on file) Final Signed Out: 07/26/2007 10:27 [facility] CONVERTED FINAL DIAGNOSIS INFLAMMATORY MYOPATHY. 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 However, the changes are not full blown. Clinical information is needed for interpretation. PLEASE SEE FULL OUTSIDE REPORT FROM [facility]. [facility] CONVERTED ORDERING PROVIDER Ordering Provider: SHLOMO CABRERA [facility] Otheron 07-13-2007 CONVERTED ELECTRONIC SIGNATURE EXTERNAL CONSULT, PATHOLOGIST (Electronic signature on file) Final Signed Out: 07/13/2007 16:05 [facility] CONVERTED FINAL DIAGNOSIS QUADRICEPS MUSCLE BIOPSY - THE [facility] CONVERTED ORDERING PROVIDER Ordering Provider: SHLOMO CABRERA [facility] [place] Panel Information SARS-CoV-2 & FLU Antigen (Rapid) [facility] Work Phone: Vital Signs Date Time Vital Sign Value Performing Clinician Facility 05-23-2025 14:12-0400 Body height 157.[address] Billy Madera MD Work Phone: [facility] 05-23-2025 14:11-0400 Body mass index (BMI) [Ratio] 38.9 kg/m2 Dr. Billy Madera MD Work Phone: [facility] 05-23-2025 14:11-0400 Body weight 96.[address] Billy Madera MD Work Phone: [facility] 05-23-2025 14:11-0400 Diastolic blood pressure 46 mm[Hg] Dr. Billy Madera MD Work Phone: [facility] 05-23-2025 14:11-0400 Systolic blood pressure 118 mm[Hg] Dr. Billy Madera MD Work Phone: [facility] 04-27-2025 08:54-0400 Body mass index (BMI) [Ratio] 38.7 kg/m2 Dr. Billy Madera MD Work Phone: [facility] 04-27-2025 08:54-0400 Body temperature 97.4 [degF] Dr. Billy Madera MD Work Phone: [facility] 04-27-2025 08:54-0400 Body weight 96.[address] Billy Madera MD Work Phone: [facility] 04-27-2025 08:54-0400 Diastolic blood pressure 78 mm[Hg] Dr. Billy Madera MD Work Phone: [facility] 04-27-2025 08:54-0400 Heart rate 66 /min Dr. Billy Madera MD Work Phone: [facility] 04-27-2025 08:54-0400 Inhaled oxygen flow rate 5 L/min Dr. Billy Madera MD Work Phone: [facility] 04-27-2025 08:54-0400 Respiratory rate 20 /min Dr. Billy Madera MD Work Phone: [facility] 04-27-2025 08:54-0400 SaO2% (BldA) [Mass fraction] 97 % Dr. Billy Madera MD Work Phone: [facility] 04-27-2025 08:54-0400 Systolic blood pressure 119 mm[Hg] Dr. Billy Madera MD Work Phone: [facility] 04-12-2025 13:47-0400 Body height 157.[address] Billy Madera MD Work Phone: [facility] 04-12-2025 13:47-0400 Body mass index (BMI) [Ratio] 39.1 kg/m2 Dr. Billy Madera MD Work Phone: [facility] 04-12-2025 13:47-0400 Body weight 97.[address] Billy Madera MD Work Phone: [facility] 04-12-2025 13:47-0400 Diastolic blood pressure 62 mm[Hg] Dr. Billy Madera MD Work Phone: [facility] 04-12-2025 13:47-0400 Systolic blood pressure 120 mm[Hg] Dr. Billy Madera MD Work Phone: [facility] 03-30-2025 14:22-0400 Body height 157.[address] Billy Madera MD Work Phone: [facility] 03-30-2025 14:22-0400 Body mass index (BMI) [Ratio] 39.3 kg/m2 Dr. Billy Madera MD Work Phone: [facility] 03-30-2025 14:22-0400 Body weight 97.[address] Billy Madera MD Work Phone: [facility] 03-30-2025 14:22-0400 Diastolic blood pressure 60 mm[Hg] Dr. Billy Madera MD Work Phone: [facility] 03-30-2025 14:22-0400 Systolic blood pressure 103 mm[Hg] Dr. Billy Madera MD Work Phone: [facility] 03-27-2025 13:01-0400 Body height 157.[address] Billy Madera MD Work Phone: [facility] 03-27-2025 13:01-0400 Body mass index (BMI) [Ratio] 39.3 kg/m2 Dr. Billy Madera MD Work Phone: [facility] 03-27-2025 13:01-0400 Body temperature 99.7 [degF] Dr. Billy Madera MD Work Phone: [facility] 03-27-2025 13:01-0400 Body weight 97.[address] Billy Madera MD Work Phone: [facility] 03-27-2025 13:01-0400 Diastolic blood pressure 60 mm[Hg] Dr. Billy Madera MD Work Phone: [facility] 03-27-2025 13:01-0400 Heart rate 70 /min Dr. Billy Madera MD Work Phone: [facility] 03-27-2025 13:01-0400 Inhaled oxygen flow rate 4 L/min Dr. Billy Madera MD Work Phone: [facility] 03-27-2025 13:01-0400 Respiratory rate 18 /min Dr. Billy Madera MD Work Phone: [facility] 03-27-2025 13:01-0400 SaO2% (BldA) [Mass fraction] 94 % Dr. Billy Madera MD Work Phone: [facility] 03-27-2025 13:01-0400 Systolic blood pressure 130 mm[Hg] Dr. Billy Madera MD Work Phone: [facility] 03-08-2025 14:48-0400 Body height 157.[address] Billy Madera MD Work Phone: [facility] 03-08-2025 14:48-0400 Body mass index (BMI) [Ratio] 39.6 kg/m2 Dr. Billy Madera MD Work Phone: [facility] 03-08-2025 14:48-0400 Body temperature 98.7 [degF] Dr. Billy Madera MD Work Phone: [facility] 03-08-2025 14:48-0400 Body weight 98.[address] Billy Madera MD Work Phone: [facility] 03-08-2025 14:48-0400 Diastolic blood pressure 56 mm[Hg] Dr. Billy Madera MD Work Phone: [facility] 03-08-2025 14:48-0400 Heart rate 71 /min Dr. Billy Madera MD Work Phone: [facility] 03-08-2025 14:48-0400 Inhaled oxygen flow rate 3 L/min Dr. Billy Madera MD Work Phone: [facility] 03-08-2025 14:48-0400 Respiratory rate 19 /min Dr. Billy Madera MD Work Phone: [facility] 03-08-2025 14:48-0400 SaO2% (BldA) [Mass fraction] 98 % Dr. Billy Madera MD Work Phone: [facility] 03-08-2025 14:48-0400 Systolic blood pressure 108 mm[Hg] Dr. Billy Madera MD Work Phone: [facility] 02-19-2025 13:20-0400 Diastolic blood pressure 57 mm[Hg] Dr. iBlly Madera MD Work Phone: [facility] 02-19-2025 13:20-0400 Heart rate 70 /min Dr. Billy Madera MD Work Phone: [facility] 02-19-2025 13:20-0400 Inhaled oxygen flow rate 4 L/min Dr. Billy Madera MD Work Phone: [facility] 02-19-2025 13:20-0400 Respiratory rate 20 /min Dr. Billy Madera MD Work Phone: [facility] 02-19-2025 13:20-0400 SaO2% (BldA) [Mass fraction] 98 % Dr. Billy Madera MD Work Phone: [facility] 02-19-2025 13:20-0400 Systolic blood pressure 126 mm[Hg] Dr. Billy Madera MD Work Phone: [facility] 02-12-2025 13:03-0400 Body height 157.[address] Billy Madera MD Work Phone: [facility] 02-12-2025 13:03-0400 Body mass index (BMI) [Ratio] 38.4 kg/m2 Dr. Billy Madera MD Work Phone: [facility] 02-12-2025 13:03-0400 Body temperature 96.4 [degF] Dr. Billy Madera MD Work Phone: [facility] 02-12-2025 13:03-0400 Body weight 95.[address] Billy Madera MD Work Phone: [facility] 02-12-2025 13:03-0400 Diastolic blood pressure 70 mm[Hg] Dr. Billy Madera MD Work Phone: [facility] 02-12-2025 13:03-0400 Heart rate 68 /min Dr. Billy Madera MD Work Phone: [facility] 02-12-2025 13:03-0400 Respiratory rate 16 /min Dr. Billy Madera MD Work Phone: [facility] 02-12-2025 13:03-0400 SaO2% (BldA) [Mass fraction] 94 % Dr. Billy Madera MD Work Phone: [facility] 02-12-2025 13:03-0400 Systolic blood pressure 124 mm[Hg] Dr. Billy Madera MD Work Phone: [facility] 02-08-2025 08:51-0400 Body mass index (BMI) [Ratio] 39.1 kg/m2 Dr. Billy Madera MD Work Phone: [facility] 02-08-2025 08:51-0400 Body temperature 97.5 [degF] Dr. Billy Madera MD Work Phone: [facility] 02-08-2025 08:51-0400 Body weight 97.[address] Billy Madera MD Work Phone: [facility] 02-08-2025 08:51-0400 Diastolic blood pressure 56 mm[Hg] Dr. Billy Madera MD Work Phone: [facility] 02-08-2025 08:51-0400 Heart rate 72 /min Dr. Billy Madera MD Work Phone: [facility] 02-08-2025 08:51-0400 Inhaled oxygen flow rate 2 L/min Dr. Billy Madera MD Work Phone: [facility] 02-08-2025 08:51-0400 Respiratory rate 20 /min Dr. Billy Madera MD Work Phone: [facility] 02-08-2025 08:51-0400 SaO2% (BldA) [Mass fraction] 97 % Dr. Billy Madera MD Work Phone: [facility] 02-08-2025 08:51-0400 Systolic blood pressure 81 mm[Hg] Dr. Billy Madera MD Work Phone: [facility] 01-05-2025 14:09-0400 Body height 157.[address] Billy Madera MD Work Phone: [facility] 01-05-2025 14:09-0400 Body mass index (BMI) [Ratio] 39.4 kg/m2 Dr. Billy Madera MD Work Phone: [facility] 01-05-2025 14:09-0400 Body temperature 97.3 [degF] Dr. Billy Madera MD Work Phone: [facility] 01-05-2025 14:09-0400 Body weight 97.[address] Billy Madera MD Work Phone: [facility] 01-05-2025 14:09-0400 Diastolic blood pressure 54 mm[Hg] Dr. Billy Madera MD Work Phone: [facility] 01-05-2025 14:09-0400 Heart rate 70 /min Dr. Billy Madera MD Work Phone: [facility] 01-05-2025 14:09-0400 Respiratory rate 22 /min Dr. Billy Madera MD Work Phone: [facility] 01-05-2025 14:09-0400 SaO2% (BldA) [Mass fraction] 97 % Dr. Billy Madera MD Work Phone: [facility] 01-05-2025 14:09-0400 Systolic blood pressure 100 mm[Hg] Dr. Billy Madera MD Work Phone: [facility] 12-24-2024 01:07-0400 Body temperature 98.1 [degF] Dr. Billy Madera MD Work Phone: [facility] 12-24-2024 01:07-0400 Diastolic blood pressure 65 mm[Hg] Dr. Billy Madera MD Work Phone: [facility] 12-24-2024 01:07-0400 Heart rate 66 /min Dr. Billy Madera MD Work Phone: [facility] 12-24-2024 01:07-0400 Respiratory rate 16 /min Dr. Billy Madera MD Work Phone: [facility] 12-24-2024 01:07-0400 SaO2% (BldA) [Mass fraction] 100 % Dr. Billy Madera MD Work Phone: [facility] 12-24-2024 01:07-0400 Systolic blood pressure 155 mm[Hg] Dr. Billy Madera MD Work Phone: [facility] 12-23-2024 23:16-0400 Body height 157.[address] Billy Madera MD Work Phone: [facility] 12-04-2024 15:14-0400 Body mass index (BMI) [Ratio] 39.5 kg/m2 Dr. Billy Madera MD Work Phone: [facility] 12-04-2024 15:14-0400 Body temperature 97 [degF] Dr. Billy Madera MD Work Phone: [facility] 12-04-2024 15:14-0400 Body weight 98.[address] Billy Madera MD Work Phone: [facility] 12-04-2024 15:14-0400 Diastolic blood pressure 68 mm[Hg] Dr. Billy Madera MD Work Phone: [facility] 12-04-2024 15:14-0400 Heart rate 70 /min Dr. Billy Madera MD Work Phone: [facility] 12-04-2024 15:14-0400 Inhaled oxygen flow rate 3 L/min Dr. Billy Madera MD Work Phone: [facility] 12-04-2024 15:14-0400 Respiratory rate 16 /min Dr. Billy Madera MD Work Phone: [facility] 12-04-2024 15:14-0400 SaO2% (BldA) [Mass fraction] 97 % Dr. Billy Madera MD Work Phone: [facility] 12-04-2024 15:14-0400 Systolic blood pressure 132 mm[Hg] Dr. Billy Madera MD Work Phone: [facility] 10-19-2024 12:45-0400 Body height 157.[address] Billy Madera MD Work Phone: [facility] 10-19-2024 12:45-0400 Body mass index (BMI) [Ratio] 39.1 kg/m2 Dr. Billy Madera MD Work Phone: [facility] 10-19-2024 12:45-0400 Body temperature 97.6 [degF] Dr. Billy Madera MD Work Phone: [facility] 10-19-2024 12:45-0400 Body weight 97.[address] Billy Madera MD Work Phone: [facility] 10-19-2024 12:45-0400 Diastolic blood pressure 76 mm[Hg] Dr. Billy Madera MD Work Phone: [facility] 10-19-2024 12:45-0400 Heart rate 57 /min Dr. Billy Madera MD Work Phone: [facility] 10-19-2024 12:45-0400 SaO2% (BldA) [Mass fraction] 97 % Dr. Billy Madera MD Work Phone: [facility] 10-19-2024 12:45-0400 Systolic blood pressure 124 mm[Hg] Dr. Billy Madera MD Work Phone: [facility] 09-14-2024 14:10-0500 Body weight 94.[address] Billy Madera MD Work Phone: [facility] 09-14-2024 14:10-0500 Heart rate 73 /min Dr. Billy Madera MD Work Phone: [facility] 09-14-2024 14:10-0500 SaO2% (BldA) [Mass fraction] 93 % Dr. Billy Madera MD Work Phone: [facility] 09-01-2024 14:27-0500 Body mass index (BMI) [Ratio] 39.1 kg/m2 Dr. Billy Madera MD Work Phone: [facility] 09-01-2024 14:27-0500 Body temperature 97.5 [degF] Dr. Billy Madera MD Work Phone: [facility] 09-01-2024 14:27-0500 Body weight 97.[address] Billy Madera MD Work Phone: [facility] 09-01-2024 14:27-0500 Diastolic blood pressure 62 mm[Hg] Dr. Billy Madera MD Work Phone: [facility] 09-01-2024 14:27-0500 Heart rate 71 /min Dr. Billy Madera MD Work Phone: [facility] 09-01-2024 14:27-0500 Inhaled oxygen flow rate 3 L/min Dr. Billy Madera MD Work Phone: [facility] 09-01-2024 14:27-0500 Respiratory rate 16 /min Dr. Billy Madera MD Work Phone: [facility] 09-01-2024 14:27-0500 SaO2% (BldA) [Mass fraction] 97 % Dr. Billy Madera MD Work Phone: [facility] 09-01-2024 14:27-0500 Systolic blood pressure 120 mm[Hg] Dr. Billy Madera MD Work Phone: [facility] 08-24-2024 08:39-0500 Body mass index (BMI) [Ratio] 39.3 kg/m2 Dr. Billy Madera MD Work Phone: [facility] 08-24-2024 08:39-0500 Body temperature 97.9 [degF] Dr. Billy Madera MD Work Phone: [facility] 08-24-2024 08:39-0500 Body weight 97.[address] Billy Madera MD Work Phone: [facility] 08-24-2024 08:39-0500 Diastolic blood pressure 45 mm[Hg] Dr. Billy Madera MD Work Phone: [facility] 08-24-2024 08:39-0500 Heart rate 80 /min Dr. Billy Madera MD Work Phone: [facility] 08-24-2024 08:39-0500 Inhaled oxygen flow rate 4 L/min Dr. Billy Madera MD Work Phone: [facility] 08-24-2024 08:39-0500 Respiratory rate 18 /min Dr. Billy Madera MD Work Phone: [facility] 08-24-2024 08:39-0500 SaO2% (BldA) [Mass fraction] 99 % Dr. Billy Madera MD Work Phone: [facility] 08-24-2024 08:39-0500 Systolic blood pressure 105 mm[Hg] Dr. Billy Madera MD Work Phone: [facility] 08-14-2024 13:05-0500 Body mass index (BMI) [Ratio] 39.1 kg/m2 Dr. Billy Madera MD Work Phone: [facility] 08-14-2024 13:05-0500 Body temperature 97.6 [degF] Dr. Billy Madera MD Work Phone: [facility] 08-14-2024 13:05-0500 Body weight 97.[address] Billy Madera MD Work Phone: [facility] 08-14-2024 13:05-0500 Diastolic blood pressure 70 mm[Hg] Dr. Billy Madera MD Work Phone: [facility] 08-14-2024 13:05-0500 Heart rate 74 /min Dr. Billy Madera MD Work Phone: [facility] 08-14-2024 13:05-0500 Inhaled oxygen flow rate 4 L/min Dr. Billy Madera MD Work Phone: [facility] 08-14-2024 13:05-0500 Respiratory rate 20 /min Dr. Billy Madera MD Work Phone: [facility] 08-14-2024 13:05-0500 SaO2% (BldA) [Mass fraction] 97 % Dr. Billy Madera MD Work Phone: [facility] 08-14-2024 13:05-0500 Systolic blood pressure 118 mm[Hg] Dr. Billy Madera MD Work Phone: [facility] 08-02-2024 23:00-0500 Body temperature 98 [degF] Dr. Billy Madera MD Work Phone: [facility] 08-02-2024 23:00-0500 Diastolic blood pressure 61 mm[Hg] Dr. Billy Madera MD Work Phone: [facility] 08-02-2024 23:00-0500 Heart rate 70 /min Dr. Billy Madera MD Work Phone: [facility] 08-02-2024 23:00-0500 Respiratory rate 21 /min Dr. Billy Madera MD Work Phone: [facility] 08-02-2024 23:00-0500 SaO2% (BldA) [Mass fraction] 97 % Dr. Billy Madera MD Work Phone: [facility] 08-02-2024 23:00-0500 Systolic blood pressure 129 mm[Hg] Dr. Billy Madera MD Work Phone: [facility] 08-02-2024 22:00-0500 Inhaled oxygen flow rate 4 L/min Dr. Billy Madera MD Work Phone: [facility] 08-02-2024 20:54-0500 Body mass index (BMI) [Ratio] 39.4 kg/m2 Dr. Billy Madera MD Work Phone: [facility] 08-02-2024 20:54-0500 Body weight 97.[address] Billy Madera MD Work Phone: [facility] 07-04-2024 20:00-0500 Heart rate 85 /min Dr. Billy Madera MD Work Phone: [facility] 07-04-2024 20:00-0500 Inhaled oxygen flow rate 4 L/min Dr. Billy Madera MD Work Phone: [facility] 07-04-2024 20:00-0500 Respiratory rate 35 /min Dr. Billy Madera MD Work Phone: [facility] 07-04-2024 20:00-0500 SaO2% (BldA) [Mass fraction] 98 % Dr. Billy Madera MD Work Phone: [facility] 07-04-2024 19:32-0500 Body temperature 98.4 [degF] Dr. Billy Madera MD Work Phone: [facility] 07-04-2024 19:32-0500 Diastolic blood pressure 74 mm[Hg] Dr. Billy Madera MD Work Phone: [facility] 07-04-2024 19:32-0500 Systolic blood pressure 116 mm[Hg] Dr. Billy Madera MD Work Phone: [facility] 07-04-2024 15:00-0500 Body mass index (BMI) [Ratio] 38.8 kg/m2 Dr. Billy Madera MD Work Phone: [facility] 07-04-2024 15:00-0500 Body weight 96.[address] Billy Madera MD Work Phone: [facility] 07-03-2024 14:04-0500 Body mass index (BMI) [Ratio] 38.5 kg/m2 Dr. Billy Madera MD Work Phone: [facility] 07-03-2024 14:04-0500 Body weight 95.[address] Billy Madera MD Work Phone: [facility] 07-03-2024 14:04-0500 Diastolic blood pressure 56 mm[Hg] Dr. Billy Madera MD Work Phone: [facility] 07-03-2024 14:04-0500 Heart rate 68 /min Dr. Billy Madera MD Work Phone: [facility] 07-03-2024 14:04-0500 Inhaled oxygen flow rate 4 L/min Dr. Billy Madera MD Work Phone: [facility] 07-03-2024 14:04-0500 Respiratory rate 20 /min Dr. Billy Madera MD Work Phone: [facility] 07-03-2024 14:04-0500 SaO2% (BldA) [Mass fraction] 97 % Dr. Billy Madera MD Work Phone: [facility] 07-03-2024 14:04-0500 Systolic blood pressure 110 mm[Hg] Dr. Billy Madera MD Work Phone: [facility] 01-10-2024 13:58-0400 Body height 157.5 cm Fidelia Vásquez MD Work Phone: [facility] 01-10-2024 13:58-0400 Body mass index (BMI) [Ratio] 37.31 kg/m2 Fidelia Vásquez MD Work Phone: [facility] 01-10-2024 13:58-0400 Body weight 92.53 kg Fiedlia Vásquez MD Work Phone: [facility] 01-10-2024 13:58-0400 Diastolic blood pressure 78 mm[Hg] Fidelia Vásquez MD Work Phone: [facility] 01-10-2024 13:58-0400 Heart rate 73 /min Fidelia Vásquez MD Work Phone: [facility] 01-10-2024 13:58-0400 Respiratory rate 23 /min Fidelia Vásquez MD Work Phone: [facility] 01-10-2024 13:58-0400 SaO2% (BldA) [Mass fraction] 97 % Fidelia Vásquez MD Work Phone: [facility] Comment on above: 4L per [place] 01-10-2024 13:58-0400 Systolic blood pressure 118 mm[Hg] Fidelia Vásquez MD Work Phone: [facility] 12-08-2023 20:03-0400 Body temperature 98 [degF] Dr. Billy Madera Work Phone: [facility] 12-08-2023 20:03-0400 Diastolic blood pressure 84 mm[Hg] Dr. Billy Madera Work Phone: [facility] 12-08-2023 20:03-0400 Heart rate 80 /min Dr. Billy Madera Work Phone: [facility] 12-08-2023 20:03-0400 Respiratory rate 16 /min Dr. Billy Madera Work Phone: [facility] 12-08-2023 20:03-0400 SaO2% (BldA) [Mass fraction] 95 % Dr. Billy Madera Work Phone: [facility] 12-08-2023 20:03-0400 Systolic blood pressure 159 mm[Hg] Dr. Billy Madera Work Phone: [facility] 12-08-2023 19:00-0400 Inhaled oxygen flow rate 4 L/min Dr. Billy Madera Work Phone: [facility] 12-08-2023 13:45-0400 Body height 157.[address] Billy Madera Work Phone: [facility] 12-08-2023 13:45-0400 Body mass index (BMI) [Ratio] 38.5 kg/m2 Dr. Billy Madera Work Phone: [facility] 12-08-2023 13:45-0400 Body weight 95.[address] Billy Madera Work Phone: [facility] 08-26-2023 15:14-0500 Heart rate 85 /min Dr. Bilyl Madera Work Phone: [facility] 08-26-2023 15:14-0500 Respiratory rate 20 /min Dr. Billy Madera Work Phone: [facility] 08-26-2023 13:37-0500 Body temperature 97.7 [degF] Dr. Billy Madera Work Phone: [facility] 08-26-2023 13:37-0500 Diastolic blood pressure 61 mm[Hg] Dr. Billy Madera Work Phone: [facility] 08-26-2023 13:37-0500 Heart rate 65 /min Dr. Billy Madera Work Phone: [facility] 08-26-2023 13:37-0500 Inhaled oxygen flow rate 4 L/min Dr. Billy Madera Work Phone: [facility] 08-26-2023 13:37-0500 Respiratory rate 18 /min Dr. Billy Madera Work Phone: [facility] 08-26-2023 13:37-0500 SaO2% (BldA) [Mass fraction] 99 % Dr. Billy Madera Work Phone: [facility] 08-26-2023 13:37-0500 Systolic blood pressure 145 mm[Hg] Dr. Billy Madera Work Phone: [facility] 08-24-2023 10:00-0500 Inhaled oxygen concentration 100 % Dr. Billy Madera Work Phone: [facility] 08-23-2023 12:47-0500 Body height 158.[address] Bilyl Madera Work Phone: [facility] 08-23-2023 12:47-0500 Body weight 99.[address] Billy Madera Work Phone: [facility] 08-22-2023 11:31-0500 Body mass index (BMI) [Ratio] 39.6 kg/m2 Dr. Billy Madera Work Phone: [facility] 08-22-2023 11:00-0500 Body temperature 97.6 [degF] Dr. Billy Madera Work Phone: [facility] 08-22-2023 11:00-0500 Diastolic blood pressure 78 mm[Hg] Dr. Billy Madera Work Phone: [facility] 08-22-2023 11:00-0500 Heart rate 64 /min Dr. Billy Madera Work Phone: [facility] 08-22-2023 11:00-0500 Respiratory rate 14 /min Dr. Billy Madera Work Phone: [facility] 08-22-2023 11:00-0500 SaO2% (BldA) [Mass fraction] 99 % Dr. Billy Madera Work Phone: [facility] 08-22-2023 11:00-0500 Systolic blood pressure 136 mm[Hg] Dr. Billy Madera Work Phone: [facility] 08-22-2023 09:55-0500 Inhaled oxygen flow rate 4 L/min Dr. Billy Madera Work Phone: [facility] 08-22-2023 06:26-0500 Body height 157.[address] Billy Madera Work Phone: [facility] 08-22-2023 06:26-0500 Body mass index (BMI) [Ratio] 41.1 kg/m2 Dr. Billy Madera Work Phone: [facility] 08-22-2023 06:26-0500 Body weight 102.[address] Billy Madera Work Phone: [facility] 08-13-2023 10:42-0500 Body mass index (BMI) [Ratio] 38.7 kg/m2 Dr. Billy Madera Work Phone: [facility] 08-13-2023 10:42-0500 Body weight 96.[address] Billy Madera Work Phone: [facility] 08-13-2023 10:42-0500 Diastolic blood pressure 75 mm[Hg] Dr. Billy Madera Work Phone: [facility] 08-13-2023 10:42-0500 Heart rate 59 /min Dr. Billy Madera Work Phone: [facility] 08-13-2023 10:42-0500 Respiratory rate 18 /min Dr. Billy Madera Work Phone: [facility] 08-13-2023 10:42-0500 SaO2% (BldA) [Mass fraction] 99 % Dr. Billy Madera Work Phone: [facility] 08-13-2023 10:42-0500 Systolic blood pressure 126 mm[Hg] Dr. Billy Madera Work Phone: [facility] 07-23-2023 08:38-0500 Body height 157.[address] Billy Madear Work Phone: [facility] 07-23-2023 08:38-0500 Body mass index (BMI) [Ratio] 38.9 kg/m2 Dr. Billy Madera Work Phone: [facility] 07-23-2023 08:38-0500 Body temperature 97.1 [degF] Dr. Billy Madera Work Phone: [facility] 07-23-2023 08:38-0500 Body weight 96.[address] Billy Madera Work Phone: [facility] 07-23-2023 08:38-0500 Diastolic blood pressure 60 mm[Hg] Dr. Billy Madera Work Phone: [facility] 07-23-2023 08:38-0500 Heart rate 68 /min Dr. Billy Madera Work Phone: [facility] 07-23-2023 08:38-0500 Inhaled oxygen flow rate 4 L/min Dr. Billy Madera Work Phone: [facility] 07-23-2023 08:38-0500 Respiratory rate 22 /min Dr. Billy Madera Work Phone: [facility] 07-23-2023 08:38-0500 SaO2% (BldA) [Mass fraction] 98 % Dr. Billy Madera Work Phone: [facility] 07-23-2023 08:38-0500 Systolic blood pressure 108 mm[Hg] Dr. Billy Madera Work Phone: [facility] 06-04-2023 18:47-0400 Heart rate 76 /min Dr. Billy Madera Work Phone: [facility] 06-04-2023 18:47-0400 Respiratory rate 24 /min Dr. Billy Madera Work Phone: [facility] 06-04-2023 16:19-0400 Body temperature 98.2 [degF] Dr. Billy Madera Work Phone: [facility] 06-04-2023 16:19-0400 Diastolic blood pressure 53 mm[Hg] Dr. Billy Madera Work Phone: [facility] 06-04-2023 16:19-0400 Inhaled oxygen flow rate 4 L/min Dr. Billy Madera Work Phone: [facility] 06-04-2023 16:19-0400 SaO2% (BldA) [Mass fraction] 100 % Dr. Billy Madera Work Phone: [facility] 06-04-2023 16:19-0400 Systolic blood pressure 142 mm[Hg] Dr. Billy Madera Work Phone: [facility] 06-04-2023 09:21-0400 Body height [address] Billy Madera Work Phone: [facility] 06-04-2023 09:21-0400 Body weight 98.[address] Billy Madera Work Phone: [facility] 06-04-2023 05:33-0400 Body mass index (BMI) [Ratio] 40.1 kg/m2 Dr. Billy Madera Work Phone: [facility] 06-04-2023 04:00-0400 Inhaled oxygen concentration 4 % Dr. Billy Madera Work Phone: [facility] 05-30-2023 23:58-0400 Body height [address] Billy aMdera Work Phone: [facility] 05-30-2023 23:58-0400 Body mass index (BMI) [Ratio] 40.6 kg/m2 Dr. Billy Madera Work Phone: [facility] 05-30-2023 23:58-0400 Body weight [address] Billy Madera Work Phone: [facility] 05-30-2023 23:58-0400 Diastolic blood pressure 56 mm[Hg] Dr. Billy Madera Work Phone: [facility] 05-30-2023 23:58-0400 Heart rate 90 /min Dr. Billy Madera Work Phone: [facility] 05-30-2023 23:58-0400 Inhaled oxygen concentration 40 % Dr. Billy Madera Work Phone: [facility] 05-30-2023 23:58-0400 Respiratory rate 15 /min Dr. Billy Madera Work Phone: [facility] 05-30-2023 23:58-0400 SaO2% (BldA) [Mass fraction] 97 % Dr. Billy Madera Work Phone: [facility] 05-30-2023 23:58-0400 Systolic blood pressure 101 mm[Hg] Dr. Billy Madera Work Phone: [facility] 05-30-2023 22:26-0400 Inhaled oxygen flow rate 4 L/min Dr. Billy Madera Work Phone: [facility] 05-30-2023 20:20-0400 Body temperature 97.6 [degF] Dr. Billy Madera Work Phone: [facility] 05-30-2023 11:14-0400 Body temperature 97.7 [degF] Dr. Billy Madera Work Phone: [facility] 05-30-2023 11:14-0400 Diastolic blood pressure 54 mm[Hg] Dr. Billy Madera Work Phone: [facility] 05-30-2023 11:14-0400 Heart rate 77 /min Dr. Billy Madera Work Phone: [facility] 05-30-2023 11:14-0400 Inhaled oxygen flow rate 4 L/min Dr. Billy Madera Work Phone: [facility] 05-30-2023 11:14-0400 Respiratory rate 16 /min Dr. Billy Madera Work Phone: [facility] 05-30-2023 11:14-0400 SaO2% (BldA) [Mass fraction] 100 % Dr. Billy Madera Work Phone: [facility] 05-30-2023 11:14-0400 Systolic blood pressure 152 mm[Hg] Dr. Billy Madera Work Phone: [facility] [facility] 05-30-2023 05:09-0400 Body mass index (BMI) [Ratio] 40.1 kg/m2 Dr. Billy Madera Work Phone: [facility] 05-30-2023 05:09-0400 Body weight 99.[address] Billy Madera Work Phone: [facility] 05-29-2023 22:50-0400 Inhaled oxygen concentration 40 % Dr. Billy Madera Work Phone: [facility] 05-29-2023 09:46-0400 Body height 157.[address] Billy Madera Work Phone: [facility] 05-25-2023 22:05-0400 Diastolic blood pressure 45 mm[Hg] Dr. Billy Madera Work Phone: [facility] 05-25-2023 22:05-0400 Heart rate 71 /min Dr. Billy Madera Work Phone: [facility] 05-25-2023 22:05-0400 Inhaled oxygen flow rate 4 L/min Dr. Billy Madera Work Phone: [facility] 05-25-2023 22:05-0400 Respiratory rate 22 /min Dr. Billy Madera Work Phone: [facility] 05-25-2023 22:05-0400 SaO2% (BldA) [Mass fraction] 99 % Dr. Billy Madera Work Phone: [facility] 05-25-2023 22:05-0400 Systolic blood pressure 155 mm[Hg] Dr. Billy Madera Work Phone: [facility] 05-25-2023 19:55-0400 Body mass index (BMI) [Ratio] 43 kg/m2 Dr. Billy Madera Work Phone: [facility] 05-25-2023 19:55-0400 Body temperature 98.1 [degF] Dr. Billy Madera Work Phone: [facility] 05-25-2023 19:55-0400 Body weight 106.[address] Billy Madera Work Phone: [facility] 05-20-2023 16:33-0400 Body mass index (BMI) [Ratio] 39.1 kg/m2 Dr. Billy Madera Work Phone: [facility] 05-20-2023 16:33-0400 Body temperature 97.8 [degF] Dr. Billy Madera Work Phone: [facility] 05-20-2023 16:33-0400 Body weight 97.[address] Billy Madera Work Phone: [facility] 05-20-2023 16:33-0400 Diastolic blood pressure 80 mm[Hg] Dr. Billy Madera Work Phone: [facility] 05-20-2023 16:33-0400 Heart rate 82 /min Dr. Billy Madera Work Phone: [facility] 05-20-2023 16:33-0400 Inhaled oxygen flow rate 4 L/min Dr. Billy Madera Work Phone: [facility] 05-20-2023 16:33-0400 Respiratory rate 20 /min Dr. Billy Madera Work Phone: [facility] 05-20-2023 16:33-0400 SaO2% (BldA) [Mass fraction] 96 % Dr. Billy Madera Work Phone: [facility] 05-20-2023 16:33-0400 Systolic blood pressure 118 mm[Hg] Dr. Billy Madera Work Phone: [facility] 04-16-2023 23:16-0400 Heart rate 74 /min Dr. Billy Madera Work Phone: [facility] 04-16-2023 23:16-0400 Respiratory rate 20 /min Dr. Billy Madera Work Phone: [facility] 04-16-2023 23:00-0400 SaO2% (BldA) [Mass fraction] 98 % Dr. Billy Madera Work Phone: [facility] 04-16-2023 19:27-0400 Body mass index (BMI) [Ratio] 41.7 kg/m2 Dr. Billy Madera Work Phone: [facility] 04-16-2023 19:27-0400 Body weight 103.[address] Billy Madera Work Phone: [facility] 04-16-2023 19:24-0400 Diastolic blood pressure 80 mm[Hg] Dr. Billy Madera Work Phone: [facility] 04-16-2023 19:24-0400 Systolic blood pressure 126 mm[Hg] Dr. Billy Madera Work Phone: [facility] 04-16-2023 18:29-0400 Body height 157.[address] Billy Madera Work Phone: [facility] 04-16-2023 18:29-0400 Body temperature 96 [degF] Dr. Billy Madera Work Phone: [facility] 04-16-2023 15:40-0400 Body temperature 98.4 [degF] Dr. Billy Madera Work Phone: [facility] 04-16-2023 15:40-0400 Diastolic blood pressure 80 mm[Hg] Dr. Billy Madera Work Phone: [facility] 04-16-2023 15:40-0400 Heart rate 82 /min Dr. Billy Madera Work Phone: [facility] 04-16-2023 15:40-0400 Inhaled oxygen flow rate 4 L/min Dr. Billy Madera Work Phone: [facility] 04-16-2023 15:40-0400 Respiratory rate 18 /min Dr. Billy Madera Work Phone: [facility] 04-16-2023 15:40-0400 SaO2% (BldA) [Mass fraction] 91 % Dr. Billy Madera Work Phone: [facility] 04-16-2023 15:40-0400 Systolic blood pressure 163 mm[Hg] Dr. Billy Madera Work Phone: [facility] 03-19-2023 01:00-0400 Diastolic blood pressure 61 mm[Hg] Dr. Billy Madera Work Phone: [facility] 03-19-2023 01:00-0400 Heart rate 66 /min Dr. Billy Madera Work Phone: [facility] 03-19-2023 01:00-0400 Inhaled oxygen flow rate 3 L/min Dr. Billy Madera Work Phone: [facility] 03-19-2023 01:00-0400 Respiratory rate 21 /min Dr. Billy Madera Work Phone: [facility] 03-19-2023 01:00-0400 SaO2% (BldA) [Mass fraction] 97 % Dr. Billy Madera Work Phone: [facility] 03-19-2023 01:00-0400 Systolic blood pressure 125 mm[Hg] Dr. Billy Madera Work Phone: [facility] 03-18-2023 20:55-0400 Body height 157.[address] Billy Madera Work Phone: [facility] 03-18-2023 20:55-0400 Body mass index (BMI) [Ratio] 40.7 kg/m2 Dr. Billy Madera Work Phone: [facility] 03-18-2023 20:55-0400 Body temperature 98.1 [degF] Dr. Billy Madera Work Phone: [facility] 03-18-2023 20:55-0400 Body weight 101.[address] Billy Madera Work Phone: [facility] 03-10-2023 13:09-0400 Body mass index (BMI) [Ratio] 40.4 kg/m2 Dr. Billy Madera Work Phone: [facility] 03-10-2023 13:09-0400 Body weight 100.[address] Billy Madera Work Phone: [facility] 03-02-2023 18:19-0400 Diastolic blood pressure 58 mm[Hg] Dr. Billy Madera Work Phone: [facility] 03-02-2023 18:19-0400 Heart rate 75 /min Dr. Billy Madera Work Phone: [facility] 03-02-2023 18:19-0400 Inhaled oxygen flow rate 4 L/min Dr. Billy Madera Work Phone: [facility] 03-02-2023 18:19-0400 Respiratory rate 18 /min Dr. Billy Madera Work Phone: [facility] 03-02-2023 18:19-0400 SaO2% (BldA) [Mass fraction] 98 % Dr. Blily Madera Work Phone: [facility] 03-02-2023 18:19-0400 Systolic blood pressure 154 mm[Hg] Dr. Billy Madera Work Phone: [facility] 07-25-2023 18:05-0400 Body mass index (BMI) [Ratio] 40.7 kg/m2 Dr. Billy Madera Work Phone: [facility] 03-02-2023 18:05-0400 Body temperature 98.1 [degF] Dr. Billy Madera Work Phone: [facility] 03-02-2023 18:05-0400 Body weight 101.[address] Billy Madera Work Phone: [facility] 02-25-2023 14:04-0400 Body mass index (BMI) [Ratio] 39.1 kg/m2 Dr. Billy Madera Work Phone: [facility] 02-25-2023 14:04-0400 Body weight 97.[address] Billy Madera Work Phone: [facility] 02-25-2023 14:04-0400 Diastolic blood pressure 67 mm[Hg] Dr. Billy Madera Work Phone: [facility] 02-25-2023 14:04-0400 Heart rate 71 /min Dr. Billy Madera Work Phone: [facility] 02-25-2023 14:04-0400 Inhaled oxygen flow rate 4 L/min Dr. Billy Madera Work Phone: [facility] 02-25-2023 14:04-0400 Respiratory rate 18 /min Dr. Billy Madera Work Phone: [facility] 02-25-2023 14:04-0400 SaO2% (BldA) [Mass fraction] 96 % Dr. Billy Madera Work Phone: [facility] 02-25-2023 14:04-0400 Systolic blood pressure 126 mm[Hg] Dr. Billy Madera Work Phone: [facility] 02-17-2023 14:36-0400 Body height 157.[address] Billy Madera Work Phone: [facility] 02-17-2023 14:36-0400 Body mass index (BMI) [Ratio] 39.9 kg/m2 Dr. Billy Madera Work Phone: [facility] 02-17-2023 14:36-0400 Body temperature 97.7 [degF] Dr. Billy Madera Work Phone: [facility] 02-17-2023 14:36-0400 Body weight 99.[address] Billy Madera Work Phone: [facility] 02-17-2023 14:36-0400 Diastolic blood pressure 68 mm[Hg] Dr. Billy Madera Work Phone: [facility] 02-17-2023 14:36-0400 Heart rate 73 /min Dr. Billy Madera Work Phone: [facility] 02-17-2023 14:36-0400 Inhaled oxygen flow rate 4 L/min Dr. Billy Madera Work Phone: [facility] 02-17-2023 14:36-0400 Respiratory rate 20 /min Dr. Billy Madera Work Phone: [facility] 02-17-2023 14:36-0400 SaO2% (BldA) [Mass fraction] 97 % Dr. Billy Madera Work Phone: [facility] 02-17-2023 14:36-0400 Systolic blood pressure 104 mm[Hg] Dr. Billy Madera Work Phone: [facility] 01-28-2023 10:45-0400 Heart rate 63 /min Dr. Billy Madera Work Phone: [facility] 01-28-2023 10:45-0400 Inhaled oxygen flow rate 4 L/min Dr. Billy Madera Work Phone: [facility] 01-28-2023 10:45-0400 Respiratory rate 20 /min Dr. Billy Madera Work Phone: [facility] 01-28-2023 10:45-0400 SaO2% (BldA) [Mass fraction] 98 % Dr. Billy Madera Work Phone: [facility] 01-28-2023 07:53-0400 Body temperature 97.6 [degF] Dr. Billy Madera Work Phone: [facility] 01-28-2023 07:53-0400 Diastolic blood pressure 64 mm[Hg] Dr. Billy Madera Work Phone: [facility] 01-28-2023 07:53-0400 Systolic blood pressure 141 mm[Hg] Dr. Billy Madera Work Phone: [facility] 01-28-2023 04:35-0400 Inhaled oxygen concentration 35 % Dr. Billy Madera Work Phone: [facility] 01-26-2023 22:04-0400 Body height 157.[address] Billy Madera Work Phone: [facility] 01-26-2023 22:04-0400 Body mass index (BMI) [Ratio] 40.4 kg/m2 Dr. Billy Madera Work Phone: [facility] 01-26-2023 22:04-0400 Body weight 100.[address] Billy Madera Work Phone: [facility] 01-22-2023 15:31-0400 Body mass index (BMI) [Ratio] 40.8 kg/m2 Dr. Billy Madera Work Phone: [facility] 01-22-2023 15:31-0400 Body temperature 97.2 [degF] Dr. Billy Madera Work Phone: [facility] 01-22-2023 15:31-0400 Body weight 101.[address] Billy Madera Work Phone: [facility] 01-22-2023 15:31-0400 Diastolic blood pressure 92 mm[Hg] Dr. Billy Madera Work Phone: [facility] 01-22-2023 15:31-0400 Heart rate 94 /min Dr. Billy Madera Work Phone: [facility] 01-22-2023 15:31-0400 Respiratory rate 22 /min Dr. Billy Madera Work Phone: [facility] 01-22-2023 15:31-0400 SaO2% (BldA) [Mass fraction] 93 % Dr. Billy Madera Work Phone: [facility] 01-22-2023 15:31-0400 Systolic blood pressure 150 mm[Hg] Dr. Billy Madera Work Phone: [facility] 01-05-2023 00:44-0400 Diastolic blood pressure 67 mm[Hg] Dr. Billy Madera Work Phone: [facility] 01-05-2023 00:44-0400 SaO2% (BldA) [Mass fraction] 100 % Dr. Billy Madera Work Phone: [facility] 01-05-2023 00:44-0400 Systolic blood pressure 165 mm[Hg] Dr. Billy Madera Work Phone: [facility] 01-04-2023 23:47-0400 Heart rate 87 /min Dr. Billy Madera Work Phone: [facility] 01-04-2023 23:47-0400 Inhaled oxygen flow rate 4 L/min Dr. Billy Madera Work Phone: [facility] 01-04-2023 23:47-0400 Respiratory rate 26 /min Dr. Billy Madera Work Phone: [facility] 01-04-2023 22:51-0400 Body height 157.[address] Billy Madera Work Phone: [facility] 01-04-2023 22:51-0400 Body mass index (BMI) [Ratio] 42 kg/m2 Dr. Billy Madera Work Phone: [facility] 01-04-2023 22:51-0400 Body temperature 98.6 [degF] Dr. Billy Madera Work Phone: [facility] 01-04-2023 22:51-0400 Body weight 104.[address] Billy Madera Work Phone: [facility] 12-27-2022 21:03-0400 Inhaled oxygen flow rate 3 L/min Dr. Billy Madera Work Phone: [facility] 12-27-2022 21:03-0400 Respiratory rate 20 /min Dr. Billy Madera Work Phone: [facility] 12-27-2022 19:17-0400 SaO2% (BldA) [Mass fraction] 97 % Dr. Billy Madera Work Phone: [facility] 12-27-2022 17:15-0400 Body mass index (BMI) [Ratio] 43.4 kg/m2 Dr. Billy Madera Work Phone: [facility] 12-27-2022 17:15-0400 Body temperature 97.6 [degF] Dr. Billy Madera Work Phone: [facility] 12-27-2022 17:15-0400 Body weight 107.[address] Billy Madera Work Phone: [facility] 12-27-2022 17:15-0400 Diastolic blood pressure 63 mm[Hg] Dr. Billy Madera Work Phone: [facility] 12-27-2022 17:15-0400 Heart rate 79 /min Dr. Billy Madera Work Phone: [facility] 12-27-2022 17:15-0400 Systolic blood pressure 156 mm[Hg] Dr. Billy Madera Work Phone: [facility] 12-26-2022 12:34-0400 Body temperature 98.9 [degF] Dr. Billy Madera Work Phone: [facility] 12-26-2022 12:34-0400 Diastolic blood pressure 65 mm[Hg] Dr. Billy Madera Work Phone: [facility] 12-26-2022 12:34-0400 Heart rate 61 /min Dr. Billy Madera Work Phone: [facility] 12-26-2022 12:34-0400 Inhaled oxygen flow rate 4 L/min Dr. Billy Madera Work Phone: [facility] 12-26-2022 12:34-0400 Respiratory rate 18 /min Dr. Billy Madera Work Phone: [facility] 12-26-2022 12:34-0400 SaO2% (BldA) [Mass fraction] 99 % Dr. Billy Madera Work Phone: [facility] 12-26-2022 12:34-0400 Systolic blood pressure 138 mm[Hg] Dr. Billy Madera Work Phone: [facility] 12-26-2022 06:00-0400 Body mass index (BMI) [Ratio] 40.4 kg/m2 Dr. Billy Madera Work Phone: [facility] 12-26-2022 06:00-0400 Body weight 100.[address] Billy Madera Work Phone: [facility] 12-03-2022 14:20-0400 Body height 157.[address] Billy Madera Work Phone: [facility] 12-03-2022 14:20-0400 Body mass index (BMI) [Ratio] 40.6 kg/m2 Dr. Billy Madera Work Phone: [facility] 12-03-2022 14:20-0400 Body temperature 98.7 [degF] Dr. Billy Madera Work Phone: [facility] 12-03-2022 14:20-0400 Body weight 100.[address] Billy Madera Work Phone: [facility] 12-03-2022 14:20-0400 Diastolic blood pressure 77 mm[Hg] Dr. Billy Madera Work Phone: [facility] 12-03-2022 14:20-0400 Heart rate 66 /min Dr. Billy Madera Work Phone: [facility] 12-03-2022 14:20-0400 Inhaled oxygen flow rate 4 L/min Dr. Billy Madera Work Phone: [facility] 12-03-2022 14:20-0400 Respiratory rate 18 /min Dr. Billy Madera Work Phone: [facility] 12-03-2022 14:20-0400 SaO2% (BldA) [Mass fraction] 94 % Dr. Billy Madera Work Phone: [facility] 12-03-2022 14:20-0400 Systolic blood pressure 142 mm[Hg] Dr. Billy Madera Work Phone: [facility] 11-16-2022 08:52-0400 Body height 157.[address] Billy Madera Work Phone: [facility] 11-16-2022 08:52-0400 Body mass index (BMI) [Ratio] 41.1 kg/m2 Dr. Billy Madera Work Phone: [facility] 11-16-2022 08:52-0400 Body temperature 97.7 [degF] Dr. Billy Madera Work Phone: [facility] 11-16-2022 08:52-0400 Body weight 102.[address] Billy Madera Work Phone: [facility] 11-16-2022 08:52-0400 Diastolic blood pressure 60 mm[Hg] Dr. Billy Madera Work Phone: [facility] 11-16-2022 08:52-0400 Heart rate 69 /min Dr. Billy Madera Work Phone: [facility] 11-16-2022 08:52-0400 Inhaled oxygen flow rate 4 L/min Dr. Billy Madera Work Phone: [facility] 11-16-2022 08:52-0400 Respiratory rate 14 /min Dr. Billy Madera Work Phone: [facility] 11-16-2022 08:52-0400 SaO2% (BldA) [Mass fraction] 99 % Dr. Billy Madera Work Phone: [facility] 11-16-2022 08:52-0400 Systolic blood pressure 122 mm[Hg] Dr. Billy Madera Work Phone: [facility] 11-02-2022 13:05-0400 Body mass index (BMI) [Ratio] 39.6 kg/m2 Dr. Billy Madera Work Phone: [facility] 11-02-2022 13:05-0400 Body temperature 98.2 [degF] Dr. Billy Madera Work Phone: [facility] 11-02-2022 13:05-0400 Body weight 98.[address] Billy Madera Work Phone: [facility] 11-02-2022 13:05-0400 Diastolic blood pressure 69 mm[Hg] Dr. Billy Madera Work Phone: [facility] 11-02-2022 13:05-0400 Heart rate 102 /min Dr. Billy Madera Work Phone: [facility] 11-02-2022 13:05-0400 Inhaled oxygen flow rate 4 L/min Dr. Billy Madera Work Phone: [facility] 11-02-2022 13:05-0400 Respiratory rate 18 /min Dr. Billy Madera Work Phone: [facility] 11-02-2022 13:05-0400 SaO2% (BldA) [Mass fraction] 98 % Dr. Billy Madera Work Phone: [facility] 11-02-2022 13:05-0400 Systolic blood pressure 102 mm[Hg] Dr. Billy Madera Work Phone: [facility] 10-15-2022 05:41-0500 Diastolic blood pressure 84 mm[Hg] Dr. Billy Madera Work Phone: [facility] 10-15-2022 05:41-0500 Heart rate 75 /min Dr. Billy Madera Work Phone: [facility] 10-15-2022 05:41-0500 Respiratory rate 20 /min Dr. Billy Madera Work Phone: [facility] 10-15-2022 05:41-0500 SaO2% (BldA) [Mass fraction] 98 % Dr. Billy Madera Work Phone: [facility] 10-15-2022 05:41-0500 Systolic blood pressure 183 mm[Hg] Dr. Billy Madera Work Phone: [facility] 10-15-2022 05:00-0500 Inhaled oxygen flow rate 4 L/min Dr. Billy Madera Work Phone: [facility] 10-15-2022 04:00-0500 Body temperature 98.2 [degF] Dr. Billy Madera Work Phone: [facility] 10-15-2022 02:15-0500 Body height 157.[address] Billy Madera Work Phone: [facility] 10-15-2022 02:15-0500 Body mass index (BMI) [Ratio] 40.6 kg/m2 Dr. Billy Madera Work Phone: [facility] 10-15-2022 02:15-0500 Body weight 100.[address] Billy Madera Work Phone: [facility] 09-23-2022 22:58-0500 Diastolic blood pressure 55 mm[Hg] Dr. Billy Madera Work Phone: [facility] 09-23-2022 22:58-0500 Heart rate 74 /min Dr. Billy Madera Work Phone: [facility] 09-23-2022 22:58-0500 Respiratory rate 33 /min Dr. Billy Madera Work Phone: [facility] 09-23-2022 22:58-0500 SaO2% (BldA) [Mass fraction] 96 % Dr. Billy Madera Work Phone: [facility] 09-23-2022 22:58-0500 Systolic blood pressure 149 mm[Hg] Dr. Billy Madera Work Phone: [facility] 09-23-2022 22:06-0500 Inhaled oxygen flow rate 4 L/min Dr. Billy Madera Work Phone: [facility] 09-23-2022 18:46-0500 Body height 157.[address] Billy Madera Work Phone: [facility] 09-23-2022 18:46-0500 Body mass index (BMI) [Ratio] 41.2 kg/m2 Dr. Billy Madera Work Phone: [facility] 09-23-2022 18:46-0500 Body temperature 97 [degF] Dr. Billy Madera Work Phone: [facility] 09-23-2022 18:46-0500 Body weight 102.[address] Billy Madera Work Phone: [facility] 09-03-2022 08:30-0500 Body height 157.[address] Billy Madera Work Phone: [facility] 09-03-2022 08:29-0500 Body mass index (BMI) [Ratio] 39.9 kg/m2 Dr. Billy Madera Work Phone: [facility] 09-03-2022 08:29-0500 Body temperature 97.6 [degF] Dr. Billy Madera Work Phone: [facility] 09-03-2022 08:29-0500 Body weight 98.[address] Billy Madera Work Phone: [facility] 09-03-2022 08:29-0500 Diastolic blood pressure 84 mm[Hg] Dr. Billy Madera Work Phone: [facility] 09-03-2022 08:29-0500 Heart rate 67 /min Dr. Billy Madera Work Phone: [facility] 09-03-2022 08:29-0500 Inhaled oxygen flow rate 4 L/min Dr. Billy Madera Work Phone: [facility] 09-03-2022 08:29-0500 Respiratory rate 20 /min Dr. Billy Madera Work Phone: [facility] 09-03-2022 08:29-0500 SaO2% (BldA) [Mass fraction] 98 % Dr. Billy Madera Work Phone: [facility] 09-03-2022 08:29-0500 Systolic blood pressure 135 mm[Hg] Dr. Billy Madera Work Phone: [facility] 09-01-2022 13:02-0500 Body mass index (BMI) [Ratio] 40.6 kg/m2 Dr. Billy Madera Work Phone: [facility] 09-01-2022 13:02-0500 Body temperature 96.5 [degF] Dr. Billy Madera Work Phone: [facility] 09-01-2022 13:02-0500 Body weight 100.[address] Billy Madera Work Phone: [facility] 09-01-2022 13:02-0500 Diastolic blood pressure 62 mm[Hg] Dr. Billy Madera Work Phone: [facility] 09-01-2022 13:02-0500 Heart rate 64 /min Dr. Billy Madera Work Phone: [facility] 09-01-2022 13:02-0500 Inhaled oxygen flow rate 4 L/min Dr. Billy Madera Work Phone: [facility] 09-01-2022 13:02-0500 Respiratory rate 20 /min Dr. Billy Madera Work Phone: [facility] 09-01-2022 13:02-0500 SaO2% (BldA) [Mass fraction] 96 % Dr. Billy Madera Work Phone: [facility] 09-01-2022 13:02-0500 Systolic blood pressure 100 mm[Hg] Dr. Billy Madera Work Phone: [facility] 08-28-2022 14:38-0500 Body height 157.[address] Billy Madera Work Phone: [facility] 08-28-2022 14:38-0500 Body mass index (BMI) [Ratio] 40.6 kg/m2 Dr. Billy Madera Work Phone: [facility] 08-28-2022 14:38-0500 Body temperature 98.7 [degF] Dr. Billy Madera Work Phone: [facility] 08-28-2022 14:38-0500 Body weight 100.[address] Billy Madera Work Phone: [facility] 08-28-2022 14:38-0500 Diastolic blood pressure 64 mm[Hg] Dr. Billy Madera Work Phone: [facility] 08-28-2022 14:38-0500 Heart rate 66 /min Dr. Billy Madera Work Phone: [facility] 08-28-2022 14:38-0500 Inhaled oxygen flow rate 4 L/min Dr. Billy Madera Work Phone: [facility] 08-28-2022 14:38-0500 Respiratory rate 20 /min Dr. Billy Madera Work Phone: [facility] 08-28-2022 14:38-0500 SaO2% (BldA) [Mass fraction] 100 % Dr. Billy Madera Work Phone: [facility] 08-28-2022 14:38-0500 Systolic blood pressure 120 mm[Hg] Dr. Billy Madera Work Phone: [facility] 08-17-2022 21:34-0500 Diastolic blood pressure 88 mm[Hg] Dr. Billy Madera Work Phone: [facility] 08-17-2022 21:34-0500 Heart rate 76 /min Dr. Billy Madera Work Phone: [facility] 08-17-2022 21:34-0500 Respiratory rate 19 /min Dr. Billy Madera Work Phone: [facility] 08-17-2022 21:34-0500 SaO2% (BldA) [Mass fraction] 95 % Dr. Billy Madera Work Phone: [facility] 08-17-2022 21:34-0500 Systolic blood pressure 138 mm[Hg] Dr. Billy Madera Work Phone: [facility] 08-17-2022 18:11-0500 Inhaled oxygen flow rate 4 L/min Dr. Billy Madera Work Phone: [facility] 08-17-2022 17:48-0500 Body mass index (BMI) [Ratio] 36.6 kg/m2 Dr. Billy Madera Work Phone: [facility] 08-17-2022 17:48-0500 Body temperature 97.2 [degF] Dr. Billy Madera Work Phone: [facility] 08-17-2022 17:48-0500 Body weight 90.[address] Billy Madera Work Phone: [facility] 08-13-2022 13:07-0500 Body mass index (BMI) [Ratio] 40.4 kg/m2 Dr. Billy Madera Work Phone: [facility] 08-13-2022 13:07-0500 Body temperature 96.4 [degF] Dr. Billy Madera Work Phone: [facility] 08-13-2022 13:07-0500 Body weight 100.[address] Billy Madera Work Phone: [facility] 08-13-2022 13:07-0500 Diastolic blood pressure 56 mm[Hg] Dr. Billy Madera Work Phone: [facility] 08-13-2022 13:07-0500 Heart rate 76 /min Dr. Billy Madera Work Phone: [facility] 08-13-2022 13:07-0500 Respiratory rate 20 /min Dr. Billy Madera Work Phone: [facility] 08-13-2022 13:07-0500 SaO2% (BldA) [Mass fraction] 99 % Dr. Billy Madera Work Phone: [facility] 08-13-2022 13:07-0500 Systolic blood pressure 146 mm[Hg] Dr. Billy Madera Work Phone: [facility] 07-15-2022 21:00-0500 Diastolic blood pressure 72 mm[Hg] Dr. Billy Madera Work Phone: [facility] 07-15-2022 21:00-0500 Heart rate 67 /min Dr. Billy Madera Work Phone: [facility] 07-15-2022 21:00-0500 Inhaled oxygen flow rate 4 L/min Dr. Billy Madera Work Phone: [facility] 07-15-2022 21:00-0500 Respiratory rate 15 /min Dr. Billy Madera Work Phone: [facility] 07-15-2022 21:00-0500 SaO2% (BldA) [Mass fraction] 100 % Dr. Billy Madera Work Phone: [facility] 07-15-2022 21:00-0500 Systolic blood pressure 164 mm[Hg] Dr. Billy Madera Work Phone: [facility] 07-15-2022 18:57-0500 Body height 157.[address] Billy Madera Work Phone: [facility] Work Phone: 07-15-2022 18:57-0500 Body mass index (BMI) [Ratio] 36.6 kg/m2 Dr. Billy Madera Work Phone: [facility] 07-15-2022 18:57-0500 Body temperature 97.8 [degF] Dr. Billy Madera Work Phone: [facility] 07-15-2022 18:57-0500 Body weight 90.[address] Billy Madera Work Phone: [facility] 06-03-2022 14:11-0400 Body temperature 96.8 [degF] Dr. Billy Madera Work Phone: [facility] 06-03-2022 14:11-0400 Body weight 99.[address] Billy Madera Work Phone: [facility] 06-03-2022 14:11-0400 Diastolic blood pressure 82 mm[Hg] Dr. Billy Madera Work Phone: [facility] 06-03-2022 14:11-0400 Heart rate 87 /min Dr. Billy Madera Work Phone: [facility] 06-03-2022 14:11-0400 Respiratory rate 16 /min Dr. Billy Madera Work Phone: [facility] 06-03-2022 14:11-0400 SaO2% (BldA) [Mass fraction] 98 % Dr. Billy Madera Work Phone: [facility] 06-03-2022 14:11-0400 Systolic blood pressure 132 mm[Hg] Dr. Billy Madera Work Phone: [facility] 05-21-2022 20:42-0400 Inhaled oxygen flow rate 4 L/min Dr. Billy Madera Work Phone: [facility] 05-21-2022 19:58-0400 Diastolic blood pressure 57 mm[Hg] Dr. Billy Madera Work Phone: [facility] 05-21-2022 19:58-0400 Heart rate 67 /min Dr. Billy Madera Work Phone: [facility] 05-21-2022 19:58-0400 Respiratory rate 20 /min Dr. Billy Madera Work Phone: [facility] 05-21-2022 19:58-0400 SaO2% (BldA) [Mass fraction] 99 % Dr. Billy Madera Work Phone: [facility] 05-21-2022 19:58-0400 Systolic blood pressure 150 mm[Hg] Dr. Billy Madera Work Phone: [facility] 05-21-2022 16:59-0400 Body height 157.[address] Billy Madera Work Phone: [facility] Work Phone: 05-21-2022 16:59-0400 Body mass index (BMI) [Ratio] 40.2 kg/m2 Dr. Billy Madera Work Phone: [facility] 05-21-2022 16:59-0400 Body temperature 96.2 [degF] Dr. Billy Madera Work Phone: [facility] 05-21-2022 16:59-0400 Body weight 99.[address] Billy Madera Work Phone: [facility] 04-24-2022 13:28-0400 Body mass index (BMI) [Ratio] 40.9 kg/m2 Dr. Billy Madera Work Phone: [facility] Work Phone: 04-24-2022 13:28-0400 Body temperature 97 [degF] Dr. Billy Madera Work Phone: [facility] Work Phone: 04-24-2022 13:28-0400 Body weight 101.[address] Billy Madera Work Phone: [facility] Work Phone: 04-24-2022 13:28-0400 Diastolic blood pressure 82 mm[Hg] Dr. Billy Madera Work Phone: [facility] Work Phone: 04-24-2022 13:28-0400 Heart rate 71 /min Dr. Billy Madera Work Phone: [facility] Work Phone: 04-24-2022 13:28-0400 Inhaled oxygen flow rate 4 L/min Dr. Billy Madera Work Phone: [facility] Work Phone: 04-24-2022 13:28-0400 Respiratory rate 20 /min Dr. Billy Madera Work Phone: [facility] Work Phone: 04-24-2022 13:28-0400 SaO2% (BldA) [Mass fraction] 99 % Dr. Billy Madera Work Phone: [facility] Work Phone: 04-24-2022 13:28-0400 Systolic blood pressure 122 mm[Hg] Dr. Billy Madera Work Phone: [facility] Work Phone: 03-15-2022 01:42-0400 Diastolic blood pressure 68 mm[Hg] Dr. Billy Madera Work Phone: [facility] Work Phone: 03-15-2022 01:42-0400 Heart rate 67 /min Dr. Billy Madera Work Phone: [facility] Work Phone: 03-15-2022 01:42-0400 Respiratory rate 20 /min Dr. Billy Madera Work Phone: [facility] Work Phone: 03-15-2022 01:42-0400 SaO2% (BldA) [Mass fraction] 99 % Dr. Billy Madera Work Phone: [facility] Work Phone: 03-15-2022 01:42-0400 Systolic blood pressure 141 mm[Hg] Dr. Billy Madera Work Phone: [facility] Work Phone: 03-15-2022 00:33-0400 Inhaled oxygen flow rate 4 L/min Dr. Billy Madera Work Phone: [facility] Work Phone: 03-14-2022 22:12-0400 Body height 157.[address] Billy Madera Work Phone: [facility] Work Phone: 03-14-2022 22:12-0400 Body mass index (BMI) [Ratio] 40.6 kg/m2 Dr. Billy Madera Work Phone: [facility] Work Phone: 03-14-2022 22:12-0400 Body temperature 98.4 [degF] Dr. Billy Madera Work Phone: [facility] Work Phone: 03-14-2022 22:12-0400 Body weight 100.[address] Billy Madera Work Phone: [facility] Work Phone: 02-18-2022 15:06-0400 Body mass index (BMI) [Ratio] 40.2 kg/m2 Dr. Billy Madera Work Phone: [facility] Work Phone: 02-18-2022 15:06-0400 Body temperature 98.1 [degF] Dr. Billy Madera Work Phone: [facility] Work Phone: 02-18-2022 15:06-0400 Body weight 99.[address] Billy Madera Work Phone: [facility] Work Phone: 02-18-2022 15:06-0400 Diastolic blood pressure 82 mm[Hg] Dr. Billy Madera Work Phone: [facility] Work Phone: 02-18-2022 15:06-0400 Heart rate 83 /min Dr. Billy Madera Work Phone: [facility] Work Phone: 02-18-2022 15:06-0400 Respiratory rate 14 /min Dr. Billy Madera Work Phone: [facility] Work Phone: 02-18-2022 15:06-0400 SaO2% (BldA) [Mass fraction] 98 % Dr. Billy Madera Work Phone: [facility] Work Phone: 02-18-2022 15:06-0400 Systolic blood pressure 140 mm[Hg] Dr. Billy Madera Work Phone: [facility] Work Phone: 01-28-2022 01:24-0400 Diastolic blood pressure 88 mm[Hg] Dr. Billy Madera Work Phone: [facility] Work Phone: 01-28-2022 01:24-0400 Heart rate 85 /min Dr. Billy Madera Work Phone: [facility] Work Phone: 01-28-2022 01:24-0400 Respiratory rate 20 /min Dr. Billy Madera Work Phone: [facility] Work Phone: 01-28-2022 01:24-0400 SaO2% (BldA) [Mass fraction] 95 % Dr. Blily Madera Work Phone: [facility] Work Phone: 01-28-2022 01:24-0400 Systolic blood pressure 162 mm[Hg] Dr. Billy Madera Work Phone: [facility] Work Phone: 01-28-2022 00:32-0400 Inhaled oxygen flow rate 2 L/min Dr. Billy Madera Work Phone: [facility] Work Phone: 01-27-2022 23:08-0400 Body mass index (BMI) [Ratio] 41.5 kg/m2 Dr. Billy Madera Work Phone: [facility] Work Phone: 01-27-2022 23:08-0400 Body temperature 98.1 [degF] Dr. Billy Madera Work Phone: [facility] Work Phone: 01-27-2022 23:08-0400 Body weight 102.[address] Billy Madera Work Phone: [facility] Work Phone: 01-21-2022 00:00-0400 Inhaled oxygen flow rate 4 L/min Dr. Billy Madera Work Phone: [facility] Work Phone: 01-21-2022 00:00-0400 Respiratory rate 18 /min Dr. Billy Madera Work Phone: [facility] Work Phone: 01-20-2022 23:23-0400 Diastolic blood pressure 89 mm[Hg] Dr. Billy Madera Work Phone: [facility] Work Phone: 01-20-2022 23:23-0400 Heart rate 76 /min Dr. Billy Madera Work Phone: [facility] Work Phone: 01-20-2022 23:23-0400 SaO2% (BldA) [Mass fraction] 97 % Dr. Billy Madera Work Phone: [facility] Work Phone: 01-20-2022 23:23-0400 Systolic blood pressure 148 mm[Hg] Dr. Billy Madera Work Phone: [facility] Work Phone: 01-20-2022 21:12-0400 Body height 157.[address] Billy Madera Work Phone: [facility] Work Phone: 01-20-2022 21:12-0400 Body mass index (BMI) [Ratio] 36.6 kg/m2 Dr. Billy Madera Work Phone: [facility] Work Phone: 01-20-2022 21:12-0400 Body temperature 97.6 [degF] Dr. Billy Madera Work Phone: [facility] Work Phone: 01-20-2022 21:12-0400 Body weight 90.[address] Billy Madera Work Phone: [facility] Work Phone: 12-29-2021 14:41-0400 Diastolic blood pressure 69 mm[Hg] Dr. Billy Madera Work Phone: [facility] Work Phone: 12-29-2021 14:41-0400 Heart rate 67 /min Dr. Billy Madera Work Phone: [facility] Work Phone: 12-29-2021 14:41-0400 Systolic blood pressure 128 mm[Hg] Dr. Billy Madera Work Phone: [facility] Work Phone: 12-29-2021 13:29-0400 Body temperature 96.8 [degF] Dr. Billy Madera Work Phone: [facility] Work Phone: 12-29-2021 13:29-0400 Inhaled oxygen flow rate 4 L/min Dr. Billy Madera Work Phone: [facility] Work Phone: 12-29-2021 13:29-0400 Respiratory rate 18 /min Dr. Billy Madera Work Phone: [facility] Work Phone: 12-29-2021 13:29-0400 SaO2% (BldA) [Mass fraction] 100 % Dr. Billy Madera Work Phone: [facility] Work Phone: 12-22-2021 14:58-0400 Body temperature 97.8 [degF] Dr. Billy Madera Work Phone: [facility] Work Phone: 12-22-2021 14:58-0400 Diastolic blood pressure 50 mm[Hg] Dr. Billy Madera Work Phone: [facility] Work Phone: 12-22-2021 14:58-0400 Heart rate 71 /min Dr. Billy Madera Work Phone: [facility] Work Phone: 12-22-2021 14:58-0400 Respiratory rate 18 /min Dr. Billy Madera Work Phone: [facility] Work Phone: 12-22-2021 14:58-0400 SaO2% (BldA) [Mass fraction] 97 % Dr. Billy Madera Work Phone: [facility] Work Phone: 12-22-2021 14:58-0400 Systolic blood pressure 120 mm[Hg] Dr. Billy Madera Work Phone: [facility] Work Phone: 12-22-2021 13:50-0400 Body height 157.[address] Billy Madera Work Phone: [facility] Work Phone: 12-22-2021 13:50-0400 Inhaled oxygen flow rate 4 L/min Dr. Billy Madera Work Phone: [facility] Work Phone: 12-19-2021 22:44-0400 Diastolic blood pressure 66 mm[Hg] Dr. Billy Madera Work Phone: [facility] Work Phone: 12-19-2021 22:44-0400 Heart rate 79 /min Dr. Billy Madera Work Phone: [facility] Work Phone: 12-19-2021 22:44-0400 Respiratory rate 19 /min Dr. Billy Madera Work Phone: [facility] Work Phone: 12-19-2021 22:44-0400 SaO2% (BldA) [Mass fraction] 98 % Dr. Billy Madera Work Phone: [facility] Work Phone: 12-19-2021 22:44-0400 Systolic blood pressure 135 mm[Hg] Dr. Billy Madera Work Phone: [facility] Work Phone: 12-19-2021 20:00-0400 Body temperature 98.6 [degF] Dr. Billy Madera Work Phone: [facility] Work Phone: 12-19-2021 19:57-0400 Body height 157.[address] Billy Madera Work Phone: [facility] Work Phone: 12-19-2021 19:57-0400 Body mass index (BMI) [Ratio] 42.6 kg/m2 Dr. Billy Madera Work Phone: [facility] Work Phone: 12-19-2021 19:57-0400 Body weight 105.[address] Billy Madera Work Phone: [facility] Work Phone: 12-19-2021 14:27-0400 Body temperature 98.8 [degF] Dr. Billy Madera Work Phone: [facility] Work Phone: 12-19-2021 14:27-0400 Diastolic blood pressure 52 mm[Hg] Dr. Billy Madera Work Phone: [facility] Work Phone: 12-19-2021 14:27-0400 Heart rate 77 /min Dr. Billy Madera Work Phone: [facility] Work Phone: 12-19-2021 14:27-0400 Inhaled oxygen flow rate 4 L/min Dr. Billy Madera Work Phone: [facility] Work Phone: 12-19-2021 14:27-0400 Respiratory rate 16 /min Dr. Billy Madera Work Phone: [facility] Work Phone: 12-19-2021 14:27-0400 SaO2% (BldA) [Mass fraction] 100 % Dr. Billy Madera Work Phone: [facility] Work Phone: 12-19-2021 14:27-0400 Systolic blood pressure 142 mm[Hg] Dr. Billy Madera Work Phone: [facility] Work Phone: 12-19-2021 13:28-0400 Body mass index (BMI) [Ratio] 40.9 kg/m2 Dr. Billy Madera Work Phone: [facility] Work Phone: 12-19-2021 13:28-0400 Body weight 101.[address] Billy Madera Work Phone: [facility] Work Phone: 12-18-2021 13:09-0400 Body mass index (BMI) [Ratio] 41 kg/m2 Dr. Billy Madera Work Phone: [facility] Work Phone: 12-18-2021 13:09-0400 Body temperature 96.5 [degF] Dr. Billy Madera Work Phone: [facility] Work Phone: 12-18-2021 13:09-0400 Body weight 101.[address] Billy Madera Work Phone: [facility] Work Phone: 12-18-2021 13:09-0400 Diastolic blood pressure 80 mm[Hg] Dr. Billy Madera Work Phone: [facility] Work Phone: 12-18-2021 13:09-0400 Heart rate 86 /min Dr. Billy Madera Work Phone: [facility] Work Phone: 12-18-2021 13:09-0400 Respiratory rate 22 /min Dr. Billy Madera Work Phone: [facility] Work Phone: 12-18-2021 13:09-0400 SaO2% (BldA) [Mass fraction] 99 % Dr. Billy Madera Work Phone: [facility] Work Phone: 12-18-2021 13:09-0400 Systolic blood pressure 140 mm[Hg] Dr. Billy Madera Work Phone: [facility] Work Phone: 12-18-2021 13:09-0400 Body height 157.[address] Billy Madera Work Phone: [facility] Work Phone: 12-18-2021 13:09-0400 Body mass index (BMI) [Ratio] 41 kg/m2 Dr. Billy Madera Work Phone: [facility] Work Phone: 12-18-2021 13:09-0400 Body temperature 96.5 [degF] Dr. Billy Madera Work Phone: [facility] Work Phone: 12-18-2021 13:09-0400 Body weight 101.[address] Billy Madera Work Phone: [facility] Work Phone: 12-18-2021 13:09-0400 Diastolic blood pressure 80 mm[Hg] Dr. Billy Madera Work Phone: [facility] Work Phone: 12-18-2021 13:09-0400 Heart rate 86 /min Dr. Billy Madera Work Phone: [facility] Work Phone: 12-18-2021 13:09-0400 Respiratory rate 22 /min Dr. Billy Madera Work Phone: [facility] Work Phone: 12-18-2021 13:09-0400 SaO2% (BldA) [Mass fraction] 99 % Dr. Billy Madera Work Phone: [facility] Work Phone: 12-18-2021 13:09-0400 Systolic blood pressure 140 mm[Hg] Dr. Billy Madera Work Phone: [facility] Work Phone: 12-15-2021 14:41-0400 Diastolic blood pressure 56 mm[Hg] Dr. Billy Madera Work Phone: [facility] Work Phone: 12-15-2021 14:41-0400 Heart rate 80 /min Dr. Billy Madera Work Phone: [facility] Work Phone: 12-15-2021 14:41-0400 Systolic blood pressure 130 mm[Hg] Dr. Billy Madera Work Phone: [facility] Work Phone: 12-15-2021 13:33-0400 Body height 157.[address] Billy Madera Work Phone: [facility] Work Phone: 12-15-2021 13:33-0400 Body temperature 96.4 [degF] Dr. Billy Madera Work Phone: [facility] Work Phone: 12-15-2021 13:33-0400 Inhaled oxygen flow rate 4 L/min Dr. Billy Madera Work Phone: [facility] Work Phone: 12-15-2021 13:33-0400 Respiratory rate 20 /min Dr. Billy Madera Work Phone: [facility] Work Phone: 12-15-2021 13:33-0400 SaO2% (BldA) [Mass fraction] 100 % Dr. Billy Madera Work Phone: [facility] Work Phone: 12-11-2021 15:30-0400 Body temperature 98.3 [degF] Dr. Billy Madera Work Phone: [facility] Work Phone: 12-11-2021 15:30-0400 Diastolic blood pressure 56 mm[Hg] Dr. Billy Madera Work Phone: [facility] Work Phone: 12-11-2021 15:30-0400 Heart rate 76 /min Dr. Billy Madera Work Phone: [facility] Work Phone: 12-11-2021 15:30-0400 Respiratory rate 16 /min Dr. Billy Madera Work Phone: [facility] Work Phone: 12-11-2021 15:30-0400 SaO2% (BldA) [Mass fraction] 100 % Dr. Billy Madera Work Phone: [facility] Work Phone: 12-11-2021 15:30-0400 Systolic blood pressure 145 mm[Hg] Dr. Blily Madera Work Phone: [facility] Work Phone: 12-11-2021 14:16-0400 Body mass index (BMI) [Ratio] 36.6 kg/m2 Dr. Billy Madera Work Phone: [facility] Work Phone: 12-11-2021 14:16-0400 Body weight 90.[address] Billy Madera Work Phone: [facility] Work Phone: 12-11-2021 14:16-0400 Inhaled oxygen flow rate 4 L/min Dr. Billy Madera Work Phone: [facility] Work Phone: 11-28-2021 13:50-0400 Body mass index (BMI) [Ratio] 41.5 kg/m2 Dr. Billy Madera Work Phone: [facility] Work Phone: 11-28-2021 13:50-0400 Body temperature 97.3 [degF] Dr. Billy Madera Work Phone: [facility] Work Phone: 11-28-2021 13:50-0400 Body weight 103.[address] Billy Madera Work Phone: [facility] Work Phone: 11-28-2021 13:50-0400 Diastolic blood pressure 74 mm[Hg] Dr. Billy Madera Work Phone: [facility] Work Phone: 11-28-2021 13:50-0400 Heart rate 76 /min Dr. Billy Madera Work Phone: [facility] Work Phone: 11-28-2021 13:50-0400 Inhaled oxygen flow rate 4 L/min Dr. Billy Madera Work Phone: [facility] Work Phone: 11-28-2021 13:50-0400 Respiratory rate 16 /min Dr. Billy Madera Work Phone: [facility] Work Phone: 11-28-2021 13:50-0400 SaO2% (BldA) [Mass fraction] 99 % Dr. Billy Madera Work Phone: [facility] Work Phone: 11-28-2021 13:50-0400 Systolic blood pressure 122 mm[Hg] Dr. Billy Madera Work Phone: [facility] Work Phone: 11-28-2021 13:50-0400 Body height 157.[address] Billy Madera Work Phone: [facility] Work Phone: 11-28-2021 13:50-0400 Body mass index (BMI) [Ratio] 41.5 kg/m2 Dr. Billy Madera Work Phone: [facility] Work Phone: 11-28-2021 13:50-0400 Body temperature 97.3 [degF] Dr. Billy Madera Work Phone: [facility] Work Phone: 11-28-2021 13:50-0400 Body weight 103.[address] Billy Madera Work Phone: [facility] Work Phone: 11-28-2021 13:50-0400 Diastolic blood pressure 74 mm[Hg] Dr. Billy Madera Work Phone: [facility] Work Phone: 11-28-2021 13:50-0400 Heart rate 76 /min Dr. Billy Madera Work Phone: [facility] Work Phone: 11-28-2021 13:50-0400 Respiratory rate 16 /min Dr. Billy Madera Work Phone: [facility] Work Phone: 11-28-2021 13:50-0400 SaO2% (BldA) [Mass fraction] 99 % Dr. Billy Madera Work Phone: [facility] Work Phone: 11-28-2021 13:50-0400 Systolic blood pressure 122 mm[Hg] Dr. Billy Madera Work Phone: [facility] Work Phone: 11-26-2021 13:22-0400 Body mass index (BMI) [Ratio] 36.5 kg/m2 Dr. Billy Madera Work Phone: [facility] Work Phone: 11-26-2021 13:22-0400 Body temperature 97.4 [degF] Dr. Billy Madera Work Phone: [facility] Work Phone: 11-26-2021 13:22-0400 Body weight 102.[address] Billy Madera Work Phone: [facility] Work Phone: 11-26-2021 13:22-0400 Diastolic blood pressure 64 mm[Hg] Dr. Billy Madera Work Phone: [facility] Work Phone: 11-26-2021 13:22-0400 Heart rate 101 /min Dr. Billy Madera Work Phone: [facility] Work Phone: 11-26-2021 13:22-0400 Respiratory rate 18 /min Dr. Billy Madera Work Phone: [facility] Work Phone: 11-26-2021 13:22-0400 SaO2% (BldA) [Mass fraction] 93 % Dr. Billy Madera Work Phone: [facility] Work Phone: 11-26-2021 13:22-0400 Systolic blood pressure 150 mm[Hg] Dr. Billy Madera Work Phone: [facility] Work Phone: 11-26-2021 13:22-0400 Body mass index (BMI) [Ratio] 36.5 kg/m2 Dr. Billy Madera Work Phone: [facility] Work Phone: 11-26-2021 13:22-0400 Body temperature 97.4 [degF] Dr. Billy Madera Work Phone: [facility] Work Phone: 11-26-2021 13:22-0400 Body weight 102.[address] Billy Madera Work Phone: [facility] Work Phone: 11-26-2021 13:22-0400 Diastolic blood pressure 64 mm[Hg] Dr. Billy Madera Work Phone: [facility] Work Phone: 11-26-2021 13:22-0400 Heart rate 101 /min Dr. Billy Madera Work Phone: [facility] Work Phone: 11-26-2021 13:22-0400 Respiratory rate 18 /min Dr. Billy Madera Work Phone: [facility] Work Phone: 11-26-2021 13:22-0400 SaO2% (BldA) [Mass fraction] 93 % Dr. Billy Madera Work Phone: [facility] Work Phone: 11-26-2021 13:22-0400 Systolic blood pressure 150 mm[Hg] Dr. Billy Madera Work Phone: [facility] Work Phone: 11-13-2021 14:20-0400 Body height 167.[address] Billy Madera Work Phone: [facility] Work Phone: 11-13-2021 14:20-0400 Body mass index (BMI) [Ratio] 36.8 kg/m2 Dr. Billy Madera Work Phone: [facility] Work Phone: 11-13-2021 14:20-0400 Body temperature 97.2 [degF] Dr. Billy Madera Work Phone: [facility] Work Phone: 11-13-2021 14:20-0400 Body weight 103.[address] Billy Madera Work Phone: [facility] Work Phone: 11-13-2021 14:20-0400 Diastolic blood pressure 72 mm[Hg] Dr. Billy Madera Work Phone: [facility] Work Phone: 11-13-2021 14:20-0400 Heart rate 87 /min Dr. Billy Madera Work Phone: [facility] Work Phone: 11-13-2021 14:20-0400 Respiratory rate 18 /min Dr. Billy Madera Work Phone: [facility] Work Phone: 11-13-2021 14:20-0400 SaO2% (BldA) [Mass fraction] 99 % Dr. Billy Madera Work Phone: [facility] Work Phone: 11-13-2021 14:20-0400 Systolic blood pressure 140 mm[Hg] Dr. Billy Madera Work Phone: [facility] Work Phone: 11-11-2021 14:03-0400 Body mass index (BMI) [Ratio] 37.1 kg/m2 Dr. Billy Madera Work Phone: [facility] Work Phone: 11-11-2021 14:03-0400 Body temperature 97.7 [degF] Dr. Billy Madera Work Phone: [facility] Work Phone: 11-11-2021 14:03-0400 Body weight 104.[address] Billy Madera Work Phone: [facility] Work Phone: 11-11-2021 14:03-0400 Diastolic blood pressure 68 mm[Hg] Dr. Billy Madera Work Phone: [facility] Work Phone: 11-11-2021 14:03-0400 Heart rate 90 /min Dr. Billy Madera Work Phone: [facility] Work Phone: 11-11-2021 14:03-0400 Respiratory rate 14 /min Dr. Billy Madera Work Phone: [facility] Work Phone: 11-11-2021 14:03-0400 SaO2% (BldA) [Mass fraction] 97 % Dr. Billy Madera Work Phone: [facility] Work Phone: 11-11-2021 14:03-0400 Systolic blood pressure 134 mm[Hg] Dr. Billy Madera Work Phone: [facility] Work Phone: 11-10-2021 15:18-0400 Body mass index (BMI) [Ratio] 33.4 kg/m2 Dr. Billy Madera Work Phone: [facility] Work Phone: 11-10-2021 15:18-0400 Body weight 93.[address] Billy Madera Work Phone: [facility] Work Phone: 11-10-2021 15:18-0400 Diastolic blood pressure 76 mm[Hg] Dr. Billy Madera Work Phone: [facility] Work Phone: 11-10-2021 15:18-0400 Heart rate 92 /min Dr. Billy Madera Work Phone: [facility] Work Phone: 11-10-2021 15:18-0400 Respiratory rate 22 /min Dr. Billy Madera Work Phone: [facility] Work Phone: 11-10-2021 15:18-0400 SaO2% (BldA) [Mass fraction] 99 % Dr. Billy Madera Work Phone: [facility] Work Phone: 11-10-2021 15:18-0400 Systolic blood pressure 130 mm[Hg] Dr. Billy Madera Work Phone: [facility] Work Phone: 10-28-2021 14:08-0400 Body mass index (BMI) [Ratio] 36.6 kg/m2 Dr. Billy Madera Work Phone: [facility] Work Phone: 10-28-2021 14:08-0400 Body temperature 96.4 [degF] Dr. Billy Madera Work Phone: [facility] Work Phone: 10-28-2021 14:08-0400 Body weight 102.[address] Billy Madera Work Phone: [facility] Work Phone: 10-28-2021 14:08-0400 Diastolic blood pressure 76 mm[Hg] Dr. Billy Madera Work Phone: [facility] Work Phone: 10-28-2021 14:08-0400 Heart rate 83 /min Dr. Billy Madera Work Phone: [facility] Work Phone: 10-28-2021 14:08-0400 Respiratory rate 28 /min Dr. Billy Madera Work Phone: [facility] Work Phone: 10-28-2021 14:08-0400 SaO2% (BldA) [Mass fraction] 96 % Dr. Billy Madera Work Phone: [facility] Work Phone: 10-28-2021 14:08-0400 Systolic blood pressure 147 mm[Hg] Dr. Billy Madera Work Phone: [facility] Work Phone: 10-23-2021 16:16-0400 Body temperature 98.4 [degF] Dr. Billy Madera Work Phone: [facility] Work Phone: 10-23-2021 16:16-0400 Diastolic blood pressure 88 mm[Hg] Dr. Billy Madera Work Phone: [facility] Work Phone: 10-23-2021 16:16-0400 Heart rate 75 /min Dr. Billy Madera Work Phone: [facility] Work Phone: 10-23-2021 16:16-0400 Respiratory rate 16 /min Dr. Billy Madera Work Phone: [facility] Work Phone: 10-23-2021 16:16-0400 SaO2% (BldA) [Mass fraction] 99 % Dr. Billy Madera Work Phone: [facility] Work Phone: 10-23-2021 16:16-0400 Systolic blood pressure 148 mm[Hg] Dr. Billy Madera Work Phone: [facility] Work Phone: 10-22-2021 14:34-0400 Body weight [address] Billy Madera Work Phone: [facility] Work Phone: 10-22-2021 02:49-0400 Body mass index (BMI) [Ratio] 37 kg/m2 Dr. Billy Madera Work Phone: [facility] Work Phone: 10-21-2021 22:26-0400 Inhaled oxygen concentration 100 % Dr. Billy Madera Work Phone: [facility] Work Phone: 10-15-2021 16:49-0500 SaO2% (BldA) [Mass fraction] 98 % Dr. Billy Madera Work Phone: [facility] Work Phone: 10-15-2021 16:45-0500 Diastolic blood pressure 67 mm[Hg] Dr. Billy Madera Work Phone: [facility] Work Phone: 10-15-2021 16:45-0500 Heart rate 86 /min Dr. Billy Madera Work Phone: [facility] Work Phone: 10-15-2021 16:45-0500 Respiratory rate 18 /min Dr. Billy Madera Work Phone: [facility] Work Phone: 10-15-2021 16:45-0500 Systolic blood pressure 164 mm[Hg] Dr. Billy Madera Work Phone: [facility] Work Phone: 10-15-2021 16:24-0500 Body mass index (BMI) [Ratio] 37.1 kg/m2 Dr. Billy Madera Work Phone: [facility] Work Phone: 10-15-2021 16:24-0500 Body temperature 98.1 [degF] Dr. Billy Madera Work Phone: [facility] Work Phone: 10-15-2021 16:24-0500 Body weight 92.[address] Billy Madera Work Phone: [facility] Work Phone: 10-13-2021 13:29-0500 Body temperature 97.7 [degF] Dr. Billy Madera Work Phone: [facility] Work Phone: 10-13-2021 13:29-0500 Diastolic blood pressure 74 mm[Hg] Dr. Billy Madera Work Phone: [facility] Work Phone: 10-13-2021 13:29-0500 Heart rate 85 /min Dr. Billy Madera Work Phone: [facility] Work Phone: 10-13-2021 13:29-0500 Respiratory rate 18 /min Dr. Billy Madera Work Phone: [facility] Work Phone: 10-13-2021 13:29-0500 SaO2% (BldA) [Mass fraction] 99 % Dr. Billy Madera Work Phone: [facility] Work Phone: 10-13-2021 13:29-0500 Systolic blood pressure 140 mm[Hg] Dr. Billy Madera Work Phone: [facility] Work Phone: 10-12-2021 11:29-0500 Body weight 92.[address] Billy Madera Work Phone: [facility] Work Phone: 10-12-2021 03:14-0500 Inhaled oxygen concentration 40 % Dr. Billy Madera Work Phone: [facility] Work Phone: 10-12-2021 01:52-0500 Body mass index (BMI) [Ratio] 37.2 kg/m2 Dr. Billy Madera Work Phone: [facility] Work Phone: 08-19-2021 13:09-0500 Body mass index (BMI) [Ratio] 41.3 kg/m2 Dr. Billy Madera Work Phone: [facility] Work Phone: 08-19-2021 13:09-0500 Body temperature 96.1 [degF] Dr. Billy Madera Work Phone: [facility] Work Phone: 08-19-2021 13:09-0500 Body weight 102.[address] Billy Madera Work Phone: [facility] Work Phone: 08-19-2021 13:09-0500 Diastolic blood pressure 58 mm[Hg] Dr. Billy Madera Work Phone: [facility] Work Phone: 08-19-2021 13:09-0500 Heart rate 100 /min Dr. Billy Madera Work Phone: [facility] Work Phone: 08-19-2021 13:09-0500 Respiratory rate 16 /min Dr. Billy Madera Work Phone: [facility] Work Phone: 08-19-2021 13:09-0500 SaO2% (BldA) [Mass fraction] 98 % Dr. Billy Madera Work Phone: [facility] Work Phone: 08-19-2021 13:09-0500 Systolic blood pressure 152 mm[Hg] Dr. Billy Madera Work Phone: [facility] Work Phone: 08-12-2021 10:47-0500 SaO2% (BldA) [Mass fraction] 93 % Dr. Billy Madera Work Phone: [facility] Work Phone: 08-12-2021 10:44-0500 Body temperature 97.6 [degF] Dr. Billy Madera Work Phone: [facility] Work Phone: 08-12-2021 10:44-0500 Diastolic blood pressure 69 mm[Hg] Dr. Billy Madera Work Phone: [facility] Work Phone: 08-12-2021 10:44-0500 Heart rate 70 /min Dr. Billy Madera Work Phone: [facility] Work Phone: 08-12-2021 10:44-0500 Respiratory rate 18 /min Dr. Billy Madera Work Phone: [facility] Work Phone: 08-12-2021 10:44-0500 Systolic blood pressure 127 mm[Hg] Dr. Billy Madera Work Phone: [facility] Work Phone: 08-12-2021 04:55-0500 Body weight [address] Billy Madera Work Phone: [facility] Work Phone: 08-11-2021 06:15-0500 Inhaled oxygen concentration 30 % Dr. Billy Madera Work Phone: [facility] Work Phone: 08-11-2021 02:32-0500 Body mass index (BMI) [Ratio] 40.7 kg/m2 Dr. Billy Madera Work Phone: [facility] Work Phone: 08-10-2021 10:10-0500 Body temperature 98.3 [degF] Dr. Billy Madera Work Phone: [facility] Work Phone: 08-10-2021 10:10-0500 Diastolic blood pressure 70 mm[Hg] Dr. Billy Madera Work Phone: [facility] Work Phone: 08-10-2021 10:10-0500 Heart rate 60 /min Dr. Billy Madera Work Phone: [facility] Work Phone: 08-10-2021 10:10-0500 Respiratory rate 18 /min Dr. Billy Madera Work Phone: [facility] Work Phone: 08-10-2021 10:10-0500 SaO2% (BldA) [Mass fraction] 99 % Dr. Billy Madera Work Phone: [facility] Work Phone: 08-10-2021 10:10-0500 Systolic blood pressure 128 mm[Hg] Dr. Billy Madera Work Phone: [facility] Work Phone: 08-10-2021 04:28-0500 Body weight 100.[address] Billy Madera Work Phone: [facility] Work Phone: 08-09-2021 02:37-0500 Inhaled oxygen concentration 35 % Dr. Billy Madera Work Phone: [facility] Work Phone: 08-09-2021 01:49-0500 Body mass index (BMI) [Ratio] 41.3 kg/m2 Dr. Billy Madera Work Phone: [facility] Work Phone: 07-30-2021 12:55-0500 Body temperature 98 [degF] Dr. Billy Madera Work Phone: [facility] Work Phone: 07-30-2021 12:55-0500 Diastolic blood pressure 74 mm[Hg] Dr. Billy Madera Work Phone: [facility] Work Phone: 07-30-2021 12:55-0500 Heart rate 73 /min Dr. Billy Madera Work Phone: [facility] Work Phone: 07-30-2021 12:55-0500 Respiratory rate 20 /min Dr. Billy Madera Work Phone: [facility] Work Phone: 07-30-2021 12:55-0500 SaO2% (BldA) [Mass fraction] 99 % Dr. Billy Madera Work Phone: [facility] Work Phone: 07-30-2021 12:55-0500 Systolic blood pressure 143 mm[Hg] Dr. Billy Madera Work Phone: [facility] Work Phone: 07-25-2021 14:09-0500 Body temperature 98.3 [degF] Dr. Billy Madera Work Phone: [facility] Work Phone: 07-25-2021 14:09-0500 Diastolic blood pressure 76 mm[Hg] Dr. Billy Madera Work Phone: [facility] Work Phone: 07-25-2021 14:09-0500 Heart rate 92 /min Dr. Billy Madera Work Phone: [facility] Work Phone: 07-25-2021 14:09-0500 Respiratory rate 18 /min Dr. Billy Madera Work Phone: [facility] Work Phone: 07-25-2021 14:09-0500 SaO2% (BldA) [Mass fraction] 97 % Dr. Billy Madera Work Phone: [facility] Work Phone: 07-25-2021 14:09-0500 Systolic blood pressure 150 mm[Hg] Dr. Billy Madera Work Phone: [facility] Work Phone: 03-18-2017 13:10-0400 BMI (Body Mass Index) 35.95 kg/m2 Yuliet Aguilar [facility] Work Phone: 03-18-2017 13:10-0400 Body Temperature 98.6 [degF] Yuliet Aguilar [facility] Work Phone: 03-18-2017 13:10-0400 BP Diastolic 85 mm[Hg] Yuliet Aguilar [facility] Work Phone: 03-18-2017 13:10-0400 BP Systolic 141 mm[Hg] Yuliet [facility] Work Phone: 03-18-2017 13:10-0400 Height 157.48 cm [facility] Work Phone: 03-18-2017 13:10-0400 Pulse (Heart Rate) 73 /min [facility] Work Phone: 03-18-2017 13:10-0400 Respiratory Rate 18 /min [facility] Work Phone: 03-18-2017 13:10-0400 Weight 89.18 kg [facility] Work Phone: 10-19-2016 11:30-0400 Body Temperature 98.01 [degF] [facility] Work Phone: 10-19-2016 11:30-0400 BSA (Body Surface Area) 1.9 m2 [facility] Work Phone: 10-19-2016 11:30-0400 Height 157.48 cm [facility] Work Phone: 10-19-2016 11:30-0400 Weight 88.99 kg [facility] Work Phone: Encounters Encounter Date Encounter Type Care Provider Facility Start: 06-13-2025 ambulatory Michelle Givens [employer] Fac ility:[facility] Start: [facility] c[facility] Start: 06-06-2025 End: 06-06-2025 ambulatory hollie Santy Facility:[facility] Start: 05-23-2025 End: 05-23-2025 Shonda ASHBY -Laboratory Specimen Work Phone: Start: 05-23-2025 End: 05-23-2025 Shonda ASHBY -[facility] Work Phone: Start: 05-23-2025 End: 05-23-[address] Billy Madera MD Work Phone: -[facility] Start: 05-23-2025 End: 05-23-2025 ambulatory Shonda Palm Facility:[facility] Start: 05-16-2025 End: 05-16-2025 ambulatory KATIA GUPTA Facility:[facility] Start: 04-27-2025 End: 04-27-2025 Michelle Givens [employer]C -[facility] Work Phone: Start: 04-27-2025 End: 04-27-[address] Billy Madera MD Work Phone: -[facility] Start: 04-27-2025 End: 04-27-2025 ambulatory Michelle Givens NP Facility:[facility] Start: 04-12-2025 End: 04-12-[address] Billy Madera MD Work Phone: -Laboratory Specimen Start: 04-12-2025 End: 04-12-2025 Shonda Palm [employer] -Laboratory Specimen Work Phone: Start: 04-12-2025 End: 04-12-[address] Billy Madera MD Work Phone: -[facility] Start: 04-12-2025 End: 04-12-2025 Shonda Palm [employer]-C -[facility] Work Phone: Start: 04-12-2025 End: 04-12-2025 ambulatory Shonda Palm Facility:[facility] Start: 03-30-2025 End: 03-30-[address] Billy Madera MD Work Phone: -Laboratory Specimen Start: 03-30-2025 End: 03-30-2025 Dr. Candy Sagastume MD -Laboratory Specimen Work Phone: Start: 03-30-2025 End: 03-30-2025 Dr. Candy Sagastume MD -[facility] Work Phone: Start: 03-30-2025 End: 03-30-[address] Billy Madera MD Work Phone: -[facility] Start: 03-30-2025 End: 03-30-2025 ambulatory Candy Sagastume Facility:[facility] Start: 03-27-2025 End: 03-27-2025 July Freitas [employer] -[facility] Work Phone: Start: 03-27-2025 End: 03-27-[address] Billy Madera MD Work Phone: -[facility] Start: 03-15-2025 End: 03-15-2025 [facility] Facility:[facility] Start: 03-08-2025 End: 03-08-2025 Dr. Billy Madera MD -[facility] Work Phone: Start: 03-08-2025 End: 03-08-[address] Billy Madera MD Work Phone: -[facility] Start: 02-19-2025 End: 02-19-[address] Billy Madera MD Work Phone: -[facility] Start: 02-19-2025 End: 02-19-2025 Grover GIL -Ultrasound [facility] Work Phone: Start: 02-19-2025 End: 02-19-2025 ambulatory Grover GIL Facility:[facility] Start: 02-15-2025 End: 02-15-[address] Billy Madera MD Work Phone: -MRI - [facility] Start: 02-15-2025 End: 02-15-2025 Grover GIL -MRI - [facility] Work Phone: Start: 02-15-2025 End: 02-15-2025 ambulatory Grover GIL Facility:[facility] Start: 02-12-2025 End: 02-12-2025 July Freitas [employer] -[facility] Work Phone: Start: 02-12-2025 End: 02-12-[address] Billy Madera MD Work Phone: -[facility] Start: 02-12-2025 End: 02-12-2025 ambulatory Jluy Freitas Facility:[facility] Start: 02-08-2025 End: 02-08-2025 Michelle Givens [employer]-C -[facility] Work Phone: Start: 02-08-2025 End: 02-08-[address] Billy Madera MD Work Phone: -[facility] Start: 02-01-2025 ambulatory April Sarmiento Fa cility:[facility] Start: 01-29-2025 ambulatory Billy Madera Facili ty:[facility] Start: 01-22-2025 End: 01-22-[address] Billy Madera MD Work Phone: [facility] Work Phone: Start: 01-22-2025 End: 01-22-2025 Michelle Givens [employer]-C -Cat Scan [facility] Work Phone: Start: 01-22-2025 End: 01-22-2025 ambulatory Michelle Givens NP Facility:[facility] Start: 01-11-2025 ambulatory Billy JAQUEZ Fa cility:[facility] Start: 01-11-2025 Billy Madera MD -[facility] Work Phone: Start: 01-05-2025 End: 01-05-[address] Billy Madera MD Work Phone: [facility] Work Phone: Start: 01-05-2025 End: 01-05-2025 Grover GIL -[facility] Start: 01-05-2025 End: 01-05-2025 Grover GIL -[facility] Work Phone: Start: 01-05-2025 End: 01-05-[address] Billy Madera MD Work Phone: [facility] Work Phone: Start: 01-05-2025 End: 01-05-2025 ambulatory Grover GIL Facility:[facility] Start: 01-02-2025 ambulatory April Sarmiento Fa cility:[facility] Start: 12-23-2024 End: 12-24-2024 Dr. Billy Madera MD Work Phone: -Emergency Department Work Phone: Start: 12-23-2024 End: 12-24-2024 Emergency department patient visit Dr. Billy Madera MD Work Phone: [facility] Work Phone: Start: 12-04-2024 End: 12-04-2024 Dr. Billy Madera MD -[facility] Work Phone: Start: 12-04-2024 End: 12-04-2024 ambulatory Billy Madera Facility:[facility] Start: 10-19-2024 End: 10-19-[address] Billy Madera MD Work Phone: [facility] Work Phone: Start: 10-19-2024 End: 10-19-2024 Grover GIL -Laboratory, Specime n Work Phone: Start: 10-19-2024 End: 10-19-2024 Grover GIL -[facility] Work Phone: Start: 10-19-2024 End: 10-19-2024 ambulatory Grover GIL Facility:[facility] Start: 10-19-2024 End: 10-19-2024 ambulatory Grover GIL Facility:[facility] Start: 10-12-2024 End: 10-12-2024 Billy Madera MD -[facility] Work Phone: Start: 10-12-2024 End: 10-12-2024 ambulatory Billy Madera OLS Facility:[facility] Start: 09-18-2024 ambulatory Korey Fraser Facility:[facility] Start: 09-18-2024 Dr. Korey Fraser DO -[facility] Start: 09-14-2024 End: 09-14-2024 Michelle Givens [employer]-C -Pulmonary Services/Neurology Work Phone: Start: 09-14-2024 End: 09-14-2024 ambulatory Michelle Givens [employer] Facility:[facility] Start: 09-01-2024 End: 09-01-2024 Dr. Billy Madera MD -[facility] Work Phone: Start: 09-01-2024 End: 09-01-2024 ambulatory Billy Madera Facility:[facility] Start: 08-24-2024 End: 08-24-2024 Michelle Givens [employer]-C -[facility] Work Phone: Start: 08-24-2024 End: 08-24-2024 ambulatory Michelle Givens NP Facility:[facility] Start: 08-21-2024 ambulatory Thierryyakov Elizabeth Facility :[facility] Start: 08-14-2024 End: 08-14-2024 Dr. Billy Madera MD -[facility] Work Phone: Start: 08-14-2024 End: 08-14-2024 ambulatory Billy Madera Facility:[facility] Start: 08-02-2024 End: 08-03-2024 Dr. Jacky Holland MD -Emergency Departmen t Work Phone: Start: 08-02-2024 End: 08-03-2024 Emergency department patient visit Billy Madera Facility:[facility] Start: 07-13-2024 End: 07-13-2024 Billy Madera MD -[facility] Work Phone: Start: 07-13-2024 End: 07-13-2024 ambulatory Billy JAQUEZ Facility:[facility] Start: 07-04-2024 End: 07-04-2024 Dr. Pasha Thornton MD -Emergency [facility] t Work Phone: Start: 07-04-2024 End: 07-04-2024 Emergency department patient visit Eveliacandidashu Madera Facility:[facility] Start: 07-03-2024 End: 07-03-2024 Dr. Raz Yañez MD -[facility] Work Phone: Start: 07-03-2024 End: 07-03-2024 ambulatory Raz Yañez Facility:[facility] Start: 06-20-2024 End: 06-20-2024 ambulatory Garima Hernandez Facility:[facility] Start: 01-10-2024 End: 01-10-2024 Patient encounter procedure Fidelia Vásquez MD Work Phone: Endocrinology Comment on above: Nontoxic multinodula r goiter (Primary Dx); Dysphagia, unspecified type; Hoarseness of voice Start: 12-08-2023 End: 12-08-2023 Emergency department patient visit Dr. Billy Madera Work Phone: [facility] Work Phone: Start: 12-08-2023 End: 12-08-2023 Dr. Billy Madera Work Phone: [facility]-Emergency Department Work Phone: Start: 12-01-2023 Dr. Billy Madera Work Phone: [facility] Work Phone: Start: 11-23-2023 End: 11-23-[address] Billy Madera Work Phone: [facility] Work Phone: Start: 11-23-2023 End: 11-23-2023 Dr. Billy Madera Work Phone: [facility]-Ultrasound, [facility] Work Phone: Start: 11-19-2023 End: 11-19-[address] Billy Madera Work Phone: [facility] Work Phone: Start: 11-19-2023 End: 11-19-2023 Dr. Billy Madera Work Phone: [facility] Work Phone: Start: 11-17-2023 End: 11-17-[address] Billy Madera Work Phone: [facility] Work Phone: Start: 11-17-2023 End: 11-17-2023 Dr. Billy Madera Work Phone: [facility] Work Phone: Start: 11-04-2023 End: 11-04-[address] Billy Madera Work Phone: [facility] Work Phone: Start: 11-04-2023 End: 11-04-2023 Dr. Billy Madera Work Phone: [facility] Work Phone: Start: 11-02-2023 End: 11-02-[address] Billy Madera Work Phone: [facility] Work Phone: Start: 11-02-2023 End: 11-02-2023 Dr. Billy Madera Work Phone: [facility]-Radiology, [facility] Work Phone: Start: 10-27-2023 End: 10-27-[address] Billy Madera Work Phone: [facility] Work Phone: Start: 10-27-2023 End: 10-27-2023 Dr. Billy Madera Work Phone: [facility] Work Phone: Start: 10-20-2023 End: 10-20-[address] Billy Madera Work Phone: [facility] Work Phone: Start: 10-20-2023 End: 10-20-2023 Dr. Billy Madera Work Phone: [facility] Work Phone: Start: 10-06-2023 End: 10-06-[address] Billy Madera Work Phone: [facility] Work Phone: Start: 10-06-2023 End: 10-06-2023 Dr. Billy Madera Work Phone: [facility] Work Phone: Start: 09-29-2023 Dr. Billy Madera Work Phone: [facility] Start: 09-08-2023 End: 09-08-[address] Billy Madera Work Phone: [facility] Work Phone: Start: 09-08-2023 End: 09-08-2023 Dr. Billy Madera Work Phone: [facility] Start: 08-26-2023 Dr. Billy Madera Work Phone: [facility] Work Phone: Start: 08-25-2023 Dr. Billy Madera Work Phone: [facility] Work Phone: Start: 08-24-2023 Dr. Billy Madera Work Phone: [facility] Work Phone: Start: 08-23-2023 Dr. Billy Madera Work Phone: [facility] Work Phone: Start: 08-22-2023 Dr. Billy Madera Work Phone: [facility] Work Phone: Start: 08-22-2023 End: 08-26-2023 Evaluation and management of inpatient Dr. Billy Madera Work Phone: [facility] Work Phone: Start: 08-22-2023 End: 08-26-2023 Dr. Billy Madera Work Phone: [facility]-Progressive Care Unit Work Phone: Start: 08-13-2023 End: 08-13-2023 Dr. Billy Madera Work Phone: [facility] Work Phone: Start: 08-10-2023 End: 08-10-2023 Dr. Billy Madera Work Phone: [facility] Start: 07-23-2023 End: 07-23-2023 Dr. Billy Madera Work Phone: [facility] Work Phone: Start: 07-20-2023 End: 07-20-[address] Billy Madera Work Phone: [facility] Work Phone: Start: 07-20-2023 End: 07-20-2023 Dr. Billy Madera Work Phone: [facility] Start: 07-14-2023 End: 07-14-[address] Billy Madera Work Phone: [facility] Work Phone: Start: 07-14-2023 End: 07-14-2023 Dr. Billy Madera Work Phone: [facility] Start: 06-29-2023 End: 06-29-2023 Dr. Billy Madera Work Phone: [facility] Start: 06-09-2023 Dr. Billy Madera Work Phone: [facility] Start: 06-08-2023 Dr. Billy Madera Work Phone: [facility] Start: 06-04-2023 Dr. Billy Madera Work Phone: [facility] Work Phone: Start: 06-04-2023 Dr. Billy Madera Work Phone: [facility] Start: 06-03-2023 Dr. Billy Madera Work Phone: [facility] Work Phone: Start: 06-03-2023 Dr. Billy Madera Work Phone: [facility] Start: 06-02-2023 Dr. Billy Madera Work Phone: [facility] Start: 06-02-2023 Dr. Billy Madera Work Phone: [facility] Work Phone: Start: 06-01-2023 Dr. Billy Madera Work Phone: [facility] Start: 06-01-2023 Dr. Billy Madera Work Phone: [facility] Start: 05-31-2023 Dr. Billy Madera Work Phone: [facility] Start: 05-31-2023 Dr. Billy Madera Work Phone: [facility] Work Phone: Start: 05-30-2023 End: 06-04-2023 Evaluation and management of inpatient Dr. Billy Madera Work Phone: [facility] Work Phone: Start: 05-30-2023 End: 06-04-2023 Dr. Billy Madera Work Phone: [facility]-Intensive Care Unit Work Phone: Start: 05-30-2023 Dr. Billy Madera Work Phone: [facility] Work Phone: Start: 05-29-2023 End: 05-30-2023 Evaluation and management of inpatient Dr. Billy Madera Work Phone: [facility] Work Phone: Start: 05-29-2023 End: 05-30-2023 Dr. Billy Madera Work Phone: [facility]-Intensive Care Unit Work Phone: Start: 05-25-2023 End: 05-25-2023 Dr. Billy Madera Work Phone: [facility]-Emergency Department Work Phone: Start: 05-20-2023 End: 05-20-2023 Dr. Billy Madera Work Phone: [facility] Internal Medicine Work Phone: Start: 05-19-2023 End: 05-19-2023 Dr. Billy Madera Work Phone: [facility] Orthopaedic Specia Work Phone: Start: 04-16-2023 End: 04-17-2023 Emergency department patient visit Dr. Billy Madera Work Phone: [facility] Work Phone: Start: 04-16-2023 End: 04-17-2023 Dr. Billy Madera Work Phone: [facility]-Emergency Department Work Phone: Start: 04-16-2023 End: 04-16-2023 Dr. Billy Madera Work Phone: [facility] Work Phone: Start: 04-14-2023 End: 04-14-2023 Dr. Billy Madera Work Phone: [facility] Work Phone: Start: 03-18-2023 End: 03-19-2023 Emergency department patient visit Dr. Billy Madera Work Phone: [facility] Work Phone: Start: 03-18-2023 End: 03-19-2023 Dr. Billy Madera Work Phone: [facility]-Emergency Department Work Phone: Start: 03-10-2023 End: 03-10-2023 Dr. Billy Madera Work Phone: [facility] Work Phone: Start: 03-02-2023 End: 03-02-2023 Dr. Billy Madera Work Phone: [facility]-Emergency Department Work Phone: Start: 02-25-2023 End: 02-25-2023 Dr. Billy Madera Work Phone: [facility] Work Phone: Start: 02-17-2023 End: 02-17-[address] Billy Madera Work Phone: [facility] Work Phone: Start: 02-17-2023 End: 02-17-2023 Dr. Billy Madera Work Phone: [facility] Internal Medicine Work Phone: Start: 01-28-2023 Dr. Billy Madera Work Phone: [facility] Start: 01-27-2023 Dr. [facility] Madera Work Phone: [facility] [facility] Start: 01-26-2023 End: 01-28-2023 Evaluation and management of inpatient Dr. Billy Madera Work Phone: [facility] Work Phone: Start: 01-26-2023 End: 01-28-2023 Dr. Billy Madera Work Phone: [facility]-Medical Surgical 3 Start: 01-22-2023 End: 01-22-2023 Dr. Billy Madera Work Phone: [facility] Start: 01-04-2023 End: 01-05-2023 Emergency department patient visit Dr. Billy Madera Work Phone: [facility] Work Phone: Start: 01-04-2023 End: 01-05-2023 Dr. Billy Madera Work Phone: [facility]-Emergency Department Start: 12-27-2022 End: 12-28-2022 Dr. Billy Madera Work Phone: [facility]Emergency Department Start: 12-26-2022 Dr. Billy Madera Work Phone: [facility] Start: 12-25-2022 Dr. Billy Madera Work Phone: [facility] Start: 12-25-2022 End: 12-26-2022 Dr. Billy Madera Work Phone: [facility]-Progressive Care Unit Start: 12-25-2022 End: 12-26-2022 Dr. Billy Madera Work Phone: [facility] Start: 12-16-2022 End: 12-16-[address] Billy Madera Work Phone: [facility] Work Phone: Start: 12-16-2022 End: 12-16-2022 Dr. Billy Madera Work Phone: [facility] Start: 12-03-2022 End: 12-03-2022 Dr. Billy Madera Work Phone: [facility] Endocrinology Start: 11-16-2022 End: 11-16-[address] Billy Madera Work Phone: [facility] Work Phone: Start: 11-16-2022 End: 11-16-2022 Dr. Billy Madera Work Phone: [facility] Internal Medicine Start: 11-02-2022 End: 11-02-2022 Dr. Billy Madera Work Phone: [facility] Start: 10-15-2022 End: 10-15-2022 Emergency department patient visit Dr. Billy Madera Work Phone: [facility] Work Phone: Start: 10-15-2022 End: 10-15-2022 Dr. Billy Madera Work Phone: [facility]-Emergency Department Start: 09-23-2022 End: 09-24-2022 Emergency department patient visit Dr. Billy Madera Work Phone: [facility] Work Phone: Start: 09-23-2022 End: 09-24-2022 Dr. Billy Madera Work Phone: [facility]-Emergency Department Start: 09-03-2022 End: 09-03-2022 Dr. Billy Madera Work Phone: [facility] Start: 09-01-2022 End: 09-01-[address] Billy Madera Work Phone: [facility] Work Phone: Start: 09-01-2022 End: 09-01-2022 Dr. Billy Madera Work Phone: [facility] Internal Medicine Start: 08-28-2022 End: 08-28-2022 Emergency department patient visit Dr. Billy Madera Work Phone: [facility]Emergency Department Start: 08-28-2022 End: 08-28-2022 Dr. Billy Madera Work Phone: [facility]Emergency Department Start: 08-17-2022 End: 08-17-2022 Emergency department patient visit Dr. Billy Madera Work Phone: [facility]Emergency Department Start: 08-17-2022 End: 08-17-2022 Dr. Billy Madera Work Phone: [facility]Emergency Department Start: 08-13-2022 End: 08-13-[address] Billy Madera Work Phone: [facility] Work Phone: Start: 08-13-2022 End: 08-13-[address] Billy Madera Work Phone: [facility] Internal [facility] Start: 08-13-2022 End: 08-13-2022 Dr. Billy Madera Work Phone: [facility] Internal [facility] Start: 07-15-2022 End: 07-16-2022 Emergency department patient [facility] Start: 07-15-2022 End: 07-16-2022 Dr. [facility] Start: 06-03-2022 End: 06-03-[address] Billy Madera Work Phone: [facility] Internal [facility] Start: 06-03-2022 End: 06-03-2022 Dr. Billy Madera Work Phone: [facility] Internal [facility] Start: 05-21-2022 End: 05-21-2022 Emergency department patient visit Dr. Billy Madera Work Phone: [facility]Emergency Department Start: 05-21-2022 End: 05-21-2022 Dr. [facility] Start: 04-24-2022 End: 04-24-[address] Billy Madera Work Phone: [facility] Internal Medicine Start: 03-14-2022 End: 03-15-2022 Emergency department patient visit Dr. Billy Mad[facility] Start: 02-18-2022 End: 02-18-[address] Billy Madera Work Phone: [facility] Internal Medicine Start: 01-27-2022 End: 01-28-2022 Emergency department patient visit Dr. Billy Mad[facility] Start: 01-20-2022 End: 01-21-2022 Emergency department patient visit Dr. Billy Mad[facility] Start: 12-29-2021 End: 12-29-[address] [facility] Start: 12-22-2021 End: 12-22-[address] [facility] Start: 12-19-2021 End: 12-20-2021 Emergency department patient visit Dr. Billy Mad[facility] Start: 12-19-2021 End: 12-19-[address] [facility] Start: 12-18-2021 End: 12-18-[address] Billy Madera Work Phone: [facility] Endocrinology Start: 12-15-2021 End: 12-15-[address] [facility] Start: 12-11-2021 End: 12-11-[address] Billy Madera Work Phone: [facility] Out Start: 12-05-2021 End: 12-05-[address] Billy Madera Work Phone: [facility]-Ultrasound, [facility] Start: 11-28-2021 End: 11-28-[address] [facility] Mad[facility] Start: 11-26-2021 End: 11-26-[address] Billy Madera Work Phone: [facility] Internal Medicine Start: 11-13-2021 End: 11-13-[address] Billy Madera Work Phone: [facility] Endocrinology Start: 11-11-2021 End: 11-11-[address] Billy Madera Work Phone: [facility]-Laboratory, [place] Start: 11-10-2021 End: 11-10-[address] Billy Madera Work Phone: [facility] Start: 10-31-2021 End: 10-31-[address] Billy Madera Work Phone: [facility]Labor[facility] Start: 10-28-2021 End: 10-28-[address] [facility] Mad[facility] Start: 10-23-2021 Non-patient / Non-visit Dr. Evelia Madera Work Phone: [facility] Start: 10-22-2021 Non-patient / Non-visit Dr. Evelia Madera Work Phone: [facility] Start: 10-21-2021 End: 10-23-2021 Evaluation and management of inpatient Dr. Billy Madera Work Phone: [facility] Start: 10-15-2021 End: 10-15-2021 Emergency department patient visit Dr. Billy Madera Work Phone: [facility]Emergency Department Start: 10-13-2021 Non-patient / Non-visit Dr. Evelia Madera Work Phone: [facility] Start: 10-12-2021 Non-patient / Non-visit Dr. Evelia Madera Work Phone: [facility] Start: 10-12-2021 End: 10-13-2021 Evaluation and management of inpatient Dr. Billy Madera Work Phone: [facility] Start: 08-19-2021 End: 08-19-[address] Billy Madera Work Phone: [facility] Internal Medicine Start: 08-12-2021 Non-patient / Non-visit Dr. Evelia Madera Work Phone: [facility] Start: 08-12-2021 Non-patient / Non-visit Dr. Evelia Madera Work Phone: [facility] Start: 08-11-2021 Non-patient / Non-visit Dr. Evelia Madera Work Phone: [facility] Start: 08-11-2021 Non-patient / Non-visit Dr. Evelia Madera Work Phone: [facility] Start: 08-11-2021 Non-patient / Non-visit Dr. Evelia Madera Work Phone: [facility] Start: 08-11-2021 End: 08-12-2021 Evaluation and management of inpatient Dr. Billy Madera Work Phone: [facility]-Progressive Care Unit Start: 08-10-2021 Non-patient / Non-visit Dr. Evelia Madera Work Phone: [facility] Start: 08-09-2021 End: 08-10-2021 Evaluation and management of inpatient Dr. Billy Madera Work Phone: [facility]-Medical Surgical 2 Start: 08-09-2021 Non-patient / Non-visit Dr. Evelia Madera Work Phone: [facility] Start: 07-30-2021 End: 07-30-[address] Billy Madera Work Phone: [facility]-Pulmonary Medicine [facility] Start: 07-25-2021 End: 07-25-[address] Billy Madera Work Phone: [facility] Start: 07-22-2021 End: 07-22-[address] Billy Madera Work Phone: [facility] Start: 03-10-[address] Billy Madera Work Phone: [facility] Start: 10-17-2020 End: 10-17-2020 Subsequent hospital visit by physician Korey Barry Work Phone: [facility] [employer] [facility] Comment on above: Right elbow pain Start: 08-15-2020 End: 08-15-2020 Subsequent hospital visit by physician Korey Barry Work Phone: [facility] [employer] Start: 07-13-2007 End: 07-13-2007 Patient encounter procedure Shlomo Cabrera Work Phone: [facility] Start: 07-13-2007 Results Only Shlomo Calixto kkassa Work Phone: [facility] Procedures Date Procedure Procedure Detail Performing Clinician Start: 05-23-2025 Gram stain microscopy Clem Madera MD Work Phone: Start: 05-23-2025 End: 05-23-[address] Billy hopson MD Work Phone: Start: 04-27-2025 Radiologic exam ches t [address] Billy Madera MD Work Phone: Start: 04-27-2025 Blood count smear mc rscp w/mnl difrntl wbc count Dr. Billy Madera MD Work Phone: Start: 04-27-2025 Mean corpuscular hem oglobin concentration determination Dr. Billy Madera MD Work Phone: Start: 04-27-[address] Evelia Madera MD Work Phone: Start: 04-27-2025 Nucleated red blood cell count procedure Dr. Billy Madera MD Work Phone: Start: 04-27-2025 Platelet mean volume determination Dr. Billy Madera MD Work Phone: Start: 04-12-2025 Gram stain microscopy Clem Madera MD Work Phone: Start: 04-12-2025 End: 04-12-[address] Billy hopson MD Work Phone: Start: 04-12-2025 Mean corpuscular hem oglobin concentration determination Dr. Billy Madera MD Work Phone: Start: 04-12-2025 Platelet mean volume determination Dr. Billy Madera MD Work Phone: Start: 03-30-2025 Gram stain microscopy Clem Madera MD Work Phone: Start: 03-30-2025 End: 03-30-2025 Microbial culture, routine Dr. Billy Madera MD Work Phone: Start: 02-19-2025 US scan of thyroid Dr. Billy Madera MD Work Phone: Start: 02-15-2025 MRI of orbit, face and neck Dr. Billy Madera MD Work Phone: Start: 02-12-2025 Blood count smear mc rscp w/mnl difrntl wbc count Dr. Billy Madera MD Work Phone: Start: 02-12-2025 Mean corpuscular hem oglobin concentration determination Dr. Billy Madera MD Work Phone: Start: 02-12-[address] Evelia Madera MD Work Phone: Start: 02-12-2025 Nucleated red blood cell count procedure Dr. Billy Madera MD Work Phone: Start: 02-12-2025 Platelet mean volume determination Dr. Billy Madera MD Work Phone: Start: 01-22-[address] Carol Madera MD Work Phone: Start: 01-11-2025 Mean corpuscular hem oglobin concentration determination Dr. Billy Madera MD Work Phone: Start: 01-11-2025 Platelet mean volume determination Dr. Billy Madera MD Work Phone: Start: 01-05-2025 Blood count smear mc rscp w/mnl difrntl wbc count Dr. Billy Madera MD Work Phone: Start: 01-05-2025 In-vitro immunologic test Dr. Billy Madera MD Work Phone: Start: 01-05-2025 Mean corpuscular hem oglobin concentration determination Dr. Billy Madera MD Work Phone: Start: 01-05-2025 Nucleated red blood cell count procedure Dr. Billy Madera MD Work Phone: Start: 01-05-2025 Platelet mean volume determination Dr. Billy Madera MD Work Phone: Start: 12-23-2024 X-ray of chest, PA a nd lateral views Dr. Billy Madera MD Work Phone: Start: 12-23-2024 Streptococcus pyogen es rRNA assay Dr. Billy Madera MD Work Phone: Start: 10-19-2024 Dr. Carol Madera MD Work Phone: Start: 10-12-2024 Mean corpuscular hem oglobin concentration determination Dr. Billy Madera MD Work Phone: Start: 10-12-2024 Platelet mean volume determination Dr. Billy Madera MD Work Phone: Start: 08-02-2024 Plain chest X-ray Dr. Jose Maria Madera MD Work Phone: Start: 07-04-2024 X-ray of chest, PA a nd lateral views Dr. Billy Madera MD Work Phone: Start: 12-08-2023 CT of abdomen and pe lvis without contrast Dr. Billy Madera Work Phone: Start: 12-01-[address] Ricardo Madera Work Phone: Start: 11-23-2023 US scan of thyroid Dr. Billy Madera Work Phone: Start: 11-19-[address] Ricardo Madera Work Phone: Start: 11-02-[address] Billy Madera Work Phone: Start: 08-25-2023 Plain chest X-ray Dr. Jose Maria Madera Work Phone: Start: 08-23-2023 Legionella pneumophi la antigen assay Dr. Billy Madera Work Phone: Start: 08-23-2023 Dr. Carol Madera Work Phone: Start: 08-23-2023 Plain chest X-ray Dr. Jose Maria Madera Work Phone: Start: 08-22-2023 Dr. Carol Madera Work Phone: Start: 08-22-2023 Plain chest X-ray Dr. Jose Maria Madera Work Phone: Start: 06-04-[address] Carol Madera Work Phone: Start: 05-31-2023 Investigation of transfusion reaction Dr. Billy Madera Work Phone: Start: 05-31-2023 Respiratory microbia l culture Dr. Billy Madera Work Phone: Start: 05-30-2023 Plain chest X-ray Dr. Jose Maria Madera Work Phone: Start: 05-30-2023 CT angiography of ch est with contrast Dr. Billy Madera Work Phone: Start: 05-30-2023 Plain chest X-ray Dr. Jose Maria Madera Work Phone: Start: 05-29-2023 Legionella pneumophi la antigen assay Dr. Billy Madera Work Phone: Start: 05-29-[address] Billy Madera Work Phone: Start: 05-29-2023 Dr. Carol Madera Work Phone: Start: 05-28-2023 Plain chest X-ray Dr. Jose Maria Madera Work Phone: Start: 05-28-2023 Dr. Carol Madera Work Phone: Start: 05-25-2023 Plain chest X-ray Dr. Jose Maria Madera Work Phone: Start: 05-25-[address] Billy Madera Work Phone: Start: 05-25-2023 Dr. Carol Madera Work Phone: Start: 04-16-2023 Computed tomography of abdomen and pelvis with intravenous contrast Dr. Billy Madera Work Phone: Start: 04-16-2023 Plain chest X-ray Dr. Jose Maria Madera Work Phone: Start: 03-18-2023 Plain chest X-ray Dr. Jose Maria Madera Work Phone: Start: 03-10-2023 Radiologic examinati on of knee Dr. Billy Madera Work Phone: Start: 01-26-2023 Plain chest X-ray Dr. Jose Maria Madera Work Phone: Start: 01-26-2023 Dr. Carol Madera Work Phone: Start: 01-22-2023 Plain chest X-ray Dr. Jose Maria Madera Work Phone: Start: 01-05-[address] Ricardo Madera Work Phone: Start: 12-27-2022 Plain chest X-ray Dr. Jose Maria Madera Work Phone: Start: 12-25-2022 Cardiovascular stres s test using pharmacologic stress agent Dr. Billy Madera Work Phone: Start: 12-25-2022 Plain chest X-ray Dr. Jose Maria Madera Work Phone: Start: 12-16-[address] Carol Madera Work Phone: Start: 12-16-2022 US scan of thyroid Dr. Billy Madera Work Phone: Start: 10-15-2022 Plain chest X-ray Dr. Jose Maria Madera Work Phone: Start: 09-23-2022 Plain chest X-ray Dr. Jose Maria Madera Work Phone: Start: 09-01-2022 Plain chest X-ray Dr. Jose Maria Madera Work Phone: Start: 08-17-2022 Plain chest X-ray Dr. Jose Maria Madera Work Phone: Start: 07-15-2022 Plain chest X-ray Dr. Jose Maria Madera Work Phone: Start: 05-21-2022 Plain chest X-ray Dr. Jose Maria Madera Work Phone: Start: 03-14-2022 Plain chest X-ray Dr. Jose Maria Madera Work Phone: Start: 03-14-2022 CT of head without contrast Dr. Billy Madera Work Phone: Start: 01-28-2022 Plain chest X-ray Dr. Jose Maria Madera Work Phone: Start: 01-20-2022 Plain chest X-ray Dr. Jose Maria Madera Work Phone: Start: 01-20-2022 SARS-CoV-2 & FLU Ant igen (Rapid) Dr. Billy Madera Work Phone: Start: 12-19-2021 Plain chest X-ray Dr. Jose Maria Madera Work Phone: Start: 12-05-2021 US scan of thyroid Dr. Billy Madera Work Phone: Start: 10-23-2021 Plain chest X-ray Dr. Jose Maria Madera Work Phone: Start: 10-22-2021 End: 10-22-2021 Legionella pneumophila antigen assay Dr. Billy Madera Work Phone: Start: 10-22-2021 Streptococcus pneumo niae Antigen (M Dr. Billy Madera Work Phone: Start: 10-21-2021 Plain chest X-ray Dr. Jose Maria Madera Work Phone: Start: 10-21-2021 Bacteria identified in Blood by Culture Dr. Billy Madera Work Phone: Start: 10-21-2021 End: 10-21-[address] Billy Madera Work Phone: Start: 10-15-2021 Plain chest X-ray Dr. Jose Maria Madera Work Phone: Start: 10-11-2021 Plain chest X-ray Dr. Jose Maria Madera Work Phone: Start: 10-11-2021 Influenza Types A,B Direct FA (MARY) Dr. Billy Madera Work Phone: Start: 08-11-2021 Plain chest X-ray Dr. Jose Maria Madera Work Phone: Start: 08-10-2021 CT angiography of ch est with contrast Dr. Billy Madera Work Phone: Start: 08-10-2021 Plain chest X-ray Dr. Jose Maria Madera Work Phone: Start: 08-09-2021 Influenza Types A,B Direct FA (MARY) Dr. Billy Madera Work Phone: Start: 08-09-2021 End: 08-09-2021 Respiratory syncytial virus antigen assay Dr. Billy Madera Work Phone: Start: 08-09-2021 Diagnostic radiograp hy of abdomen, decubitus and erect Dr. Billy Madera Work Phone: Start: 08-08-2021 Plain chest X-ray Dr. Jose Maria Madera Work Phone: Start: 07-25-2021 Plain chest X-ray Dr. Jose Maria Madera Work Phone: Start: 07-22-2021 Plain chest X-ray Dr. Jose Maria Madera Work Phone: Start: 10-17-2020 Radex elbow complete minimum 3 views Korey Barry Work Phone: Start: 08-15-2020 Radex elbow complete minimum 3 views Korey Barry Work Phone: Start: 03-18-2017 End: 03-18-2017 Dietary management education, guidance, and counseling Yuliet Aguilar Start: 10-28-2016 End: 03-26-2017 Upper GI endoscopy, biopsy Bolivar naylor MD Work Phone: Start: 10-19-2016 End: 03-26-2017 Upper GI endoscopy, biopsy Bolivar naylor MD Work Phone: Start: 10-08-2016 End: 03-26-2017 Follow Up after Imaging/labs Bolivar Edwards MD Work Phone: Start: 07-31-2016 End: 09-18-2016 Ct thorax w/o dye Haroon Nuno Work Phone: Start: 07-31-2016 End: 09-18-2016 Pulmonary stress test/simple Haroon Nuno Work Phone: Start: 07-31-2016 End: 09-18-2016 Tte w/doppler, complete Haroon Nuno Work Phone: Start: 07-13-2007 CONVERTED SURGICAL PATHOLOGY Shlomo Cabrera Work Phone: SARS-CoV-2 & FLU Ant igen (Rapid) Dr. Billy Madera Work Phone: Urine culture Dr. Billy Madera Work Phone: Viral antigen assay Dr. Reji Madera Work Phone: Dr. Billy black Work Phone: Dr. Billy black Work Phone: Plan of Treatment Date Care Activity Detail Author Start: 06-29-2030 DTaP/Tdap/Td vaccine (3 - Td) DTaP/Tdap/Td vaccine (3 - Td) [place], [place] Start: 06-29-2030 Urine microalbumin profile DTaP,Tdap,Td Vaccine (3 - Td or Tdap) [facility] Start: 02-15-2025 MR Unspecified body region [facility] Start: 02-15-2025 MRI of orbit, face and neck [facility] Start: 02-12-2025 C reactive protein [Mass/volume] in Serum or Plasma [facility] Start: 02-12-2025 CBC W Auto Differential panel - Blood [facility] Start: 02-12-2025 Comprehensive metabolic 1999 panel - Serum or Plasma [facility] Start: 02-12-2025 Thyroid stimulating hormone measurement [facility] Start: 02-12-[address] [facility] Start: 02-12-2025 Triiodothyronine, free measurement [facility] Start: 01-05-2025 C reactive protein [Mass/volume] in Serum or Plasma [facility] Start: 01-05-2025 CBC W Auto Differential panel - Blood [facility] Start: 01-05-2025 Comprehensive metabolic 1999 panel - Serum or Plasma [facility] Start: 01-05-[address] [facility] Start: 01-05-2025 In-vitro immunologic test [facility] Start: 01-05-[address] [facility] Start: 12-24-2024 [facility] Start: 12-24-2024 US.doppler Lower extremity vein [facility] Start: 08-02-2024 End: 08-02-2024 [facility] Start: 07-04-2024 [facility] Start: 02-28-2024 End: 02-28-2024 Patient encounter procedure 02/28/2024 2:20 PM EDT Office Visit Endocrinology [address] [place] [id number] Fidelia Vásquez MD [address] [place] [id number] 4 week f/u thyroid Endocrinology Comment on above: 4 week f/u thyroid Start: 12-08-2023 [facility] Start: 12-08-2023 End: 12-08-2023 [facility] Start: 08-26-[address] [facility] Start: 08-23-2023 XR Chest Single view [facility] Start: 08-23-2023 [facility] Start: 08-22-2023 Assessment of risk of venous thromboembolism [facility] Start: 08-22-2023 Care regimes management [facility] Start: 08-22-2023 Catheterization of vein [facility] Start: 08-22-[address] [facility] Start: 08-22-[address] [facility] Start: 08-22-2023 Insertion of catheter into peripheral vein [facility] Start: 08-22-2023 Measuring intake and output [facility] Start: 08-22-[address] [facility] Start: 08-22-[address] [facility] Start: 08-22-2023 Providing care according to standard [facility] Start: 08-22-2023 Provision of activity privileges [facility] Start: 08-22-2023 Referral to occupational therapist [facility] Start: 08-22-[address] [facility] Start: 08-22-[address] [facility] Start: 08-22-2023 [facility] Start: 08-22-2023 Following clinical pathway protocol [facility] Start: 08-22-2023 Streptococcus pneumoniae antigen assay [facility] Start: 08-22-[address] [facility] Start: 08-22-[address] [facility] Start: 08-22-2023 Hospital admission, emergency, from emergency room, medical nature [facility] Start: 08-22-[address] [facility] Start: 08-22-[address] [facility] Start: 08-22-2023 End: 08-22-2023 [facility] Start: 08-09-2023 Advance Directive Discussion Advance Directive Discussion [facility] Start: 08-09-2023 Behavioral Health Screening Behavioral Health Screening [facility] Start: 06-07-2023 [facility] Start: 06-06-[address] [facility] Start: 06-06-2023 [facility] Start: 06-05-[address] [facility] Start: 06-05-2023 [facility] Start: 06-04-[address] [facility] Start: 06-04-[address] [facility] Start: 06-03-[address] [facility] Start: 06-02-2023 Care planning and problem solving actions [facility] Start: 06-02-[address] [facility] Start: 06-02-[address] [facility] Start: 06-01-[address] [facility] Start: 06-01-2023 Referral to analytical research program manager [facility] Start: 06-01-[address] [facility] Start: 06-01-[address] [facility] Start: 06-01-[address] [facility] Start: 06-01-2023 Dual pressure spontaneous ventilation support [facility] Start: 05-31-[address] [facility] Start: 05-31-2023 Referral to occupational therapist [facility] Start: 05-31-[address] [facility] Start: 05-31-2023 End: 06-01-2023 [facility] Start: 05-31-2023 Insertion of nasogastric tube [facility] Start: 05-31-2023 Following clinical pathway protocol [facility] Start: 05-30-2023 Application of intermittent pneumatic compression device [facility] Start: 05-30-2023 Assessment of risk of venous thromboembolism [facility] Start: 05-30-[address] [facility] Start: 05-30-[address] [facility] Start: 05-30-[address] [facility] Start: 05-30-2023 Insertion of catheter into peripheral vein [facility] Start: 05-30-2023 Measuring intake and output [facility] Start: 05-30-[address] [facility] Start: 05-30-[address] [facility] Start: 05-30-2023 Providing care according to standard [facility] Start: 05-30-2023 Vital signs measurements [facility] Start: 05-30-2023 End: 05-31-2023 [facility] Start: 05-30-[address] [facility] Start: 05-30-[address] [facility] Start: 05-30-2023 Airway suction technique [facility] Start: 05-30-2023 Creatine kinase [Enzymatic activity/volume] in Serum or Plasma [facility] Start: 05-30-[address] [facility] Start: 05-30-2023 Plain chest X-ray [facility] Start: 05-30-2023 XR Chest Single view [facility] Start: 05-30-2023 CT angiography of chest with contrast [facility] Start: 05-30-2023 CTA Chest vessels WO and W contrast IV [facility] Start: 05-30-2023 [facility] Start: 05-30-[address] [facility] Start: 05-30-2023 [facility] Start: 05-29-2023 Emergency dept visit high severity&threat funcj [facility] Start: 05-29-2023 Iv infusion ther proph addl sequential to [address] [facility] Start: 05-29-2023 Iv infusion therapy prophylaxis/dx ea hour [facility] Start: 05-29-2023 Iv infusion therapy/prophylaxis /dx 1st to [address] [facility] Start: 05-29-2023 Ther proph/dx njx ea seql iv push sbst/drug fac [facility] Start: 05-29-2023 Therapeutic injection iv push each new drug [facility] Start: 05-29-2023 Therapeutic prophylactic/dx injection subq/im [facility] Start: 05-29-[address] [facility] Start: 05-29-2023 Assessment of risk of venous thromboembolism [facility] Start: 05-29-2023 Care regimes management [facility] Start: 05-29-[address] [facility] Start: 05-29-2023 Elevation of head of bed [facility] Start: 05-29-2023 Insertion of catheter into peripheral vein [facility] Start: 05-29-2023 Measuring intake and output [facility] Start: 05-29-[address] [facility] Start: 05-29-[address] [facility] Start: 05-29-[address] [facility] Start: 05-29-2023 Providing care according to standard [facility] Start: 05-29-2023 Referral to occupational therapist [facility] Start: 05-29-[address] [facility] Start: 05-29-2023 End: 05-29-2023 [facility] Start: 05-29-2023 Bacteria identified in Sputum by Culture [facility] Start: 05-29-2023 Dual pressure spontaneous ventilation support [facility] Start: 05-29-[address] [facility] Start: 05-29-[address] [facility] Start: 05-29-2023 Following clinical pathway protocol [facility] Start: 05-29-[address] [facility] Start: 05-28-2023 End: 05-28-[address] [facility] Start: 05-25-2023 [facility] Start: 05-20-[address] [facility] Work Phone: Start: 05-14-2023 Diabetes Screening Diabetes Screening [facility] Start: 04-16-2023 [facility] Start: 04-16-2023 [facility] Start: 04-09-2023 Covid-19 Vaccine () Covid-19 Vaccine () [facility] Start: 03-18-2023 [facility] Start: 01-28-[address] [facility] Start: 01-27-2023 Dual pressure spontaneous ventilation support [facility] Start: 01-27-[address] [facility] Start: 01-26-2023 Following clinical pathway protocol [facility] Start: 01-26-2023 Assessment of risk of venous thromboembolism [facility] Start: 01-26-2023 Care regimes management [facility] Start: 01-26-2023 Elevation of head of bed [facility] Start: 01-26-[address] [facility] Start: 01-26-2023 Insertion of catheter into peripheral vein [facility] Start: 01-26-[address] [facility] Start: 01-26-[address] [facility] Start: 01-26-[address] [facility] Start: 01-26-2023 Providing care according to standard [facility] Start: 01-26-2023 Provision of activity privileges [facility] Start: 01-26-[address] [facility] Start: 01-26-2023 End: 01-26-2023 [facility] Start: 01-26-[address] [facility] Start: 01-26-2023 End: 01-26-[address] [facility] Start: 01-05-2023 [facility] Start: 12-27-2022 [facility] Start: 12-26-[address] [facility] Start: 12-25-[address] [facility] Start: 12-25-[address] [facility] Start: 12-25-2022 Provision of activity privileges [facility] Start: 12-25-[address] [facility] Start: 12-25-2022 Taking patient vital signs [facility] Start: 12-25-[address] [facility] Start: 12-25-2022 [facility] Start: 12-25-[address] [facility] Start: 12-25-2022 Referral to analytical research program manager [facility] Start: 12-25-2022 Following clinical pathway protocol [facility] Start: 12-25-2022 Assessment of risk of venous thromboembolism [facility] Start: 12-25-2022 Care regimes management [facility] Start: 12-25-[address] [facility] Start: 12-25-[address] [facility] Start: 12-25-2022 Insertion of catheter into peripheral vein [facility] Start: 12-25-2022 Introduction of urinary catheter [facility] Start: 12-25-2022 Measuring intake and output [facility] Start: 12-25-[address] [facility] Start: 12-25-2022 Providing care according to standard [facility] Start: 12-25-2022 Provision of activity privileges [facility] Start: 12-25-2022 Tobacco use cessation education [facility] Start: 12-25-2022 [facility] Start: 12-25-2022 Dual pressure spontaneous ventilation support [facility] Start: 12-25-[address] [facility] Start: 09-23-[address] [facility] Start: 09-23-[address] [facility] Start: 08-28-[address] [facility] Start: 08-17-2022 [facility] Start: 07-15-2022 [facility] Start: 06-03-[address] [facility] Work Phone: Start: 03-14-2022 End: 03-14-2022 [facility] Work Phone: Start: 01-20-2022 [facility] Work Phone: Start: 12-29-2021 Iv infusion therapy prophylaxis/dx ea [facility] Start: 12-29-2021 Iv infusion therapy/prophylaxis /dx 1st to 1 hr THER/PROPH/DIAG IV INF [facility] Work Phone: Start: 12-22-2021 Iv infusion therapy/prophylaxis /dx 1st to 1 hr THER/PROPH/DIAG IV INF [facility] Work Phone: Start: 12-19-2021 Iv infusion therapy/prophylaxis /dx 1st to 1 hr THER/PROPH/DIAG IV INF [facility] Work Phone: Start: 12-15-2021 Iv infusion therapy/prophylaxis /dx 1st to 1 hr THER/PROPH/DIAG IV INF [facility] Work Phone: Start: 12-11-2021 Iv infusion therapy/prophylaxis /dx 1st to 1 hr THER/PROPH/DIAG IV INF [facility] Work Phone: Start: 08-09-2021 Iv infusion therapy/prophylaxis /dx 1st to 1 hr THER/PROPH/DIAG IV INF [facility] Work Phone: Start: 08-09-2021 Therapeutic injection iv push each new drug TX/PRO/DX INJ NEW DRUG ADDON [facility] Work Phone: Start: 08-09-2021 Therapeutic prophylactic/dx injection subq/im THER/PROPH/DIAG INJ SC/IM [facility] Work Phone: Start: 09-26-2020 End: 09-26-2020 Nurse Only [facility] [place] Start: 08-18-2020 Annual Wellness Visit (AWV) Annual Wellness Visit (AWV) [facility] Work Phone: Start: 07-25-2020 Pneumococcal Vaccine: 65+ (2 of 2 - PPSV23 or PCV20) Pneumococcal Vaccine: 65+ (2 of 2 - PPSV23 or PCV20) [facility] Start: 04-09-2020 Influenza vaccination INFLUENZA (#1) [facility] Start: 03-26-2017 End: 03-26-2017 Appointment Appointment [facility] [employer] Work Phone: Start: 03-18-2017 End: 03-22-2017 Upper GI endoscopy, biopsy Upper gastrointestinal endoscopy; with biopsy [facility] [employer] Work Phone: Start: 10-28-2016 End: 03-26-2017 Upper GI endoscopy, biopsy Upper gastrointestinal endoscopy; with biopsy [facility] [employer] Work Phone: Start: 10-19-2016 End: 03-26-2017 Upper GI endoscopy, biopsy Upper gastrointestinal endoscopy; with biopsy [facility] [employer] Work Phone: Start: 10-09-2016 End: 10-09-2016 Endocrinology Referral [facility] [employer] Work Phone: Start: 10-08-2016 End: 03-26-2017 Follow Up after Imaging/labs Follow Up after Imaging/labs [employer] Work Phone: Start: 10-08-2016 End: 10-09-2016 Gastric emptying study NM Gastric Emptying Study [facility] [employer] Work Phone: Start: 10-08-2016 End: 10-08-2016 HbA1c Hemoglobin A1C [employer] Work Phone: Start: 10-08-2016 End: 10-09-2016 X-ray exam, upper gi tract Upper GI & Small Bowel [employer] Work Phone: Start: 09-24-2016 End: 09-24-2016 [facility] [employer] Work Phone: Start: 09-24-2016 End: 09-24-2016 Follow Up Appt 1 month Follow Up Appt 1 month [employer] Work Phone: Start: 09-24-2016 End: 09-24-2016 Pulmonary Function Test - complete Pulmonary Function Test - complete [employer] Work Phone: Start: 07-31-2016 End: 09-18-2016 Ct thorax w/o dye CT Chest without contrast [employer] Work Phone: Start: 07-31-2016 End: 07-31-2016 Follow Up Appt 1 month Follow Up Appt 1 month [employer] Work Phone: Start: 07-31-2016 End: 07-31-2016 Pulmonary Function Test - complete Pulmonary Function Test - complete [employer] Work Phone: Start: 07-31-2016 End: 09-18-2016 Pulmonary stress test/simple Pulmonary stress testing; simple (eg, 6-minute walk) [employer] Work Phone: Start: 07-31-2016 End: 09-18-2016 Tte w/doppler, complete Echo Complete with Color Flow [employer] Work Phone: Start: 2016 ADVANCE DIRECTIVE DISCUSSION ADVANCE DIRECTIVE DISCUSSION [facility] Start: 2016 BONE DENSITY BONE DENSITY [facility] Start: 2016 Pneumococcal 65+ years Vaccine (2 of 2 - PPSV23) Pneumococcal 65+ years Vaccine (2 of 2 - PPSV23) [place], [place] Start: 2016 PNEUMOVAX AGE 65 AND OVER WITH 5YR LOOKBACK (#1) PNEUMOVAX AGE 65 AND OVER WITH 5YR LOOKBACK (#1) [facility] Start: 2016 Screening for osteoporosis Bone Density Screening [facility] Start: 2011 RSV Vaccine (1 - 1-dose 60+ series) RSV Vaccine (1 - 1-dose 60+ series) [facility] Start: 2006 Screening for osteoporosis DEXA (modify frequency per FRAX score) [place], [place] Start: 2001 Screening for malignant neoplasm of breast Breast cancer screen [place], [place] Start: 2001 Screening for malignant neoplasm of colon Colon cancer screen colonoscopy [place], [place] Start: 2001 Shingles Vaccine (1 of 2) Shingles Vaccine (1 of 2) [place] Start: 2001 SHINGRIX VACCINE (1 of 2) SHINGRIX VACCINE (1 of 2) [facility] Start: 2001 Tuberculosis screening COLORECTAL CANCER SCREENING,SEE MODIFIER [facility] Start: 1996 DIABETES SCREEN DIABETES SCREEN [facility] Start: 1996 Lipid panel Lipid Screening [facility] Start: 1996 LIPID SCREEN LIPID SCREEN [facility] Start: 1996 Screening for malignant neoplasm of colon [facility] Start: 1991 Diabetes screen Diabetes screen [place], [place] Start: 1991 Lipid panel Lipid screen [place], [place] Start: 1991 Mammography MAMMOGRAM [facility] Start: 1991 Screening for malignant neoplasm of breast Mammogram Screening [facility] Start: 1970 Urine microalbumin profile DTAP,TDAP,TD (1 - Tdap) [facility] Start: 1969 HEPATITIS C SCREENING HEPATITIS C SCREENING [facility] Start: 1967 COVID-19 Vaccine (1 of 2) COVID-19 Vaccine (1 of 2) [facility] Work Phone: Start: 1951 Creatinine measurement Creatinine monitoring [place], [place] Start: 1951 Hepatitis C screening Hepatitis C screen [place], [place] Start: 1951 Potassium monitoring Potassium monitoring [place], [place] Alanine aminotransfe rase [Enzymatic activity/volume] in Serum or Plasma [facility] Alanine aminotransfe rase [Enzymatic activity/volume] in Serum or Plasma [facility] Alanine aminotransfe rase [Enzymatic activity/volume] in Serum or Plasma [facility] Albumin [Mass/volume ] in Serum or Plasma [facility] Albumin [Mass/volume ] in Serum or Plasma [facility] Albumin [Mass/volume ] in Serum or Plasma [facility] Alkaline phosphatase [Enzymatic activity/volume] in Serum or Plasma [facility] Alkaline phosphatase [Enzymatic activity/volume] in Serum or Plasma [facility] Alkaline phosphatase [Enzymatic activity/volume] in Serum or Plasma [facility] Anion gap in Serum o r Plasma [facility] Anion gap in Serum o r Plasma [facility] Anion gap measurement [facility] Aspartate aminotransferase [Enzymatic activity/volume] in Serum or Plasma [facility] Bacteria identified in Sputum by Respiratory culture [facility] Bacteria identified in Urine by Culture [facility] Bilirubin, total measurement [facility] Bilirubin, total measurement [facility] Bilirubin, total measurement [facility] BUN/Creatinine ratio [facility] BUN/Creatinine ratio [facility] BUN/Creatinine ratio [facility] Calcium [Mass/volume ] in Serum or Plasma [facility] Calcium [Mass/volume ] in Serum or Plasma [facility] Calcium [Mass/volume ] in Serum or Plasma [facility] Carbon dioxide, tota l [Moles/volume] in Central venous blood [facility] Carbon dioxide, tota l [Moles/volume] in Central venous blood [facility] Carbon dioxide, tota l [Moles/volume] in Serum or Plasma [facility] Chloride [Moles/volu me] in Serum or Plasma [facility] Creatinine [Mass/vol ume] in Serum or Plasma [facility] Creatinine [Mass/vol ume] in Serum or Plasma [facility] Creatinine [Moles/volume] in Serum or Plasma [facility] CT Chest [facility] CT Chest [facility] CT Chest [facility] Erythrocyte mean corpuscular volume determination [facility] Erythrocyte mean corpuscular volume determination [facility] Glucose [Mass/volume ] in Serum or Plasma [facility] Glucose [Mass/volume ] in Serum or Plasma [facility] Glucose [Mass/volume ] in Serum or Plasma [facility] Hematocrit [Volume Fraction] of Blood [facility] Hematocrit [Volume Fraction] of Blood [facility] Hematocrit [Volume Fraction] of Blood [facility] Hemoglobin [Mass/vol ume] in Blood [facility] Hemoglobin [Mass/vol ume] in Blood [facility] Hemoglobin [Mass/vol ume] in Blood [facility] Legionella pneumophi la Ag [Presence] in Urine [facility] Leukocytes [#/volume ] in Blood [facility] Leukocytes [#/volume ] in Blood [facility] Leukocytes [#/volume ] in Blood [facility] Magnesium [Mass/volu me] in Serum or Plasma [facility] Magnesium [Mass/volu me] in Serum or Plasma [facility] Mean corpuscular hemoglobin concentration determination [facility] Mean corpuscular hemoglobin concentration determination [facility] Mean corpuscular hemoglobin concentration determination [facility] Mean corpuscular hemoglobin determination [facility] Mean corpuscular hemoglobin determination [facility] Mean corpuscular hemoglobin determination [facility] Measurement of renal function [facility] Measurement of renal function [facility] Measurement of renal function [facility] MR Lower extremity W O contrast [facility] MR Unspecified body region [facility] Mycobacterium tuberculosis tuberculin stimulated gamma interferon [Presence] in Blood [facility] Neutrophil count [facility] Neutrophil count [facility] Neutrophil count [facility] Neutrophil percent differential count [facility] Neutrophil percent differential count [facility] Neutrophil percent differential count [facility] Patient Education [facility] Work Phone: Patient referral [facility] Work Phone: Platelets [#/volume] in Blood [facility] Platelets [#/volume] in Blood [facility] Platelets [#/volume] in Blood [facility] Potassium [Moles/vol ume] in Serum or Plasma [facility] Potassium measurement [facility] Potassium measurement [facility] Red blood cell count [facility] Red blood cell count [facility] Red blood cell count [facility] Red cell distributio n width determination [facility] Red cell distributio n width determination [facility] Red cell distributio n width determination [facility] Serum chloride measurement [facility] Serum chloride measurement [facility] Sodium [Moles/volume ] in Serum or Plasma [facility] Sodium measurement [facility] Sodium measurement [facility] Source specific culture [facility] Thyroperoxidase Ab [Units/volume] in Serum or Plasma [facility] Total protein measurement [facility] Total protein measurement [facility] Total protein measurement [facility] Urea nitrogen [Mass/volume] in Serum or Plasma [facility] Urea nitrogen [Mass/volume] in Serum or Plasma [facility] Urea nitrogen [Mass/volume] in Serum or Plasma [facility] XR Chest PA and Lateral [facility] Immunizations Immunization Date Immunization Notes Care Provider [facility] 06-01-2024 Seasonal trivalent influenza vaccine, adjuvanted, preservative free Dr. Billy Madera MD Work Phone: [facility] 05-20-2023 influenza, injectabl e, quadrivalent, preservative free Dr. Billy Madera Work Phone: [facility] 06-03-2022 influenza, injectabl e, quadrivalent, preservative free Dr. Billy Madera Work Phone: [facility] 06-03-2022 influenza, seasonal, injectable Dr. Billy Madera Work Phone: [facility] 08-20-2021 influenza, injectabl e, quadrivalent, preservative free Dr. Billy Madera Work Phone: [facility] 08-20-2021 influenza, seasonal, injectable Dr. Billy Madera Work Phone: [facility] 07-28-2021 [facility] Dr[facility] Girma Madera Work Phone: [facility] 11-21-2020 [facility] Dr. Girma Madera Work Phone: [facility] 10-24-2020 [facility] Dr. Girma Madera Work Phone: [facility] 06-29-2020 tetanus toxoid, redu ashley diphtheria toxoid, and acellular pertussis vaccine, adsorbed Dr. Billy Madera Work Phone: [facility] 04-25-2020 influenza, injectabl e, quadrivalent, preservative free Dr. Billy Madera Work Phone: [facility] 04-25-2020 influenza, seasonal, injectable Dr. Billy Madera Work Phone: [facility] 04-25-2020 Fluad Quad (65yr up)(PF) 60 mcg (15 mcg x 4)/0.5mL IM syringe (flu vac Dr. Billy Madera Work Phone: [facility] Work Phone: 03-20-2020 tetanus toxoid, redu ashley diphtheria toxoid, and acellular pertussis vaccine, adsorbed Dr. Billy Madera Work Phone: [facility] 07-25-2019 pneumococcal conjuga te vaccine, [address] Billy Madera Work Phone: [facility] 07-25-2019 pneumococcal vaccine , unspecified formulation Dr. Billy Madera Work Phone: [facility] Work Phone: 07-25-2019 Fluad 65yr up(PF)45 mcg(15 mcgx3)/0.5 mL intramuscular syringe (flu vac Dr. Billy Madera Work Phone: [facility] Work Phone: 08-09-[address] Kelby aMdera Work Phone: [facility] Work Phone: 08-09-2006 pneumococcal vaccine , unspecified formulation Dr. Billy Madera Work Phone: [facility] Payers Date Payer Category Payer Self-pay [id number] 2024 Medicaid [id number] 2018 Unknown [facility] [employer] MEDICARE ADVANTAGE O [id number] 2018-Present [phone] [address] [place] [address] O [id number] 2018 Medicare [id number] 2016 Medicaid [id number] 2009 Medicare [id number] 2004 Unknown MMO [employer] PLUS [id number] 2004-2010 PPO [id number] Medicare [id number] Unknown . Unknown [id number] Unknown [id number] Unknown [id number] Unknown [id number] Unknown [id number] Unknown [id number] 2.16.840.1.167411.3.579.2.462 Unknown [id number] 2.16.840.1.726792.3.579.2.462 Unknown [id number] 2.16.840.1.961979.3.579.2.462 Unknown [id number] 2.840.1.241387.3.579.2.462 Unknown [id number] 2.16.840.1.206123.3.579.2.462 Unknown [id number] 2.16840.1.037602.3.579.2.462 Unknown [id number] 2.16.840.1.390977.3.579.2.462 Unknown [id number] 2.16.840.1.504845.3.579.2.462 Unknown [id number] 2.16.840.1.419952.3.579.2.462 Unknown [id number] 2.16.840.1.952599.3.579.2.462 Unknown [id number] 2.16.840.1.692471.3.579.2.462 Unknown [id number] 2.16.840.1.149843.3.579.2.462 Unknown [id number] 2.16.840.1.497764.3.579.2.462 Unknown [id number] 2.16.840.1.583331.3.579.2.462 Unknown [id number] 2.16.840.1.718887.3.579.2.462 Unknown [id number] 2.16.840.1.695730.3.579.2.462 Unknown [id number] 2.16.840.1.794095.3.579.2.462 Unknown [id number] 2.16.840.1.661155.3.579.2.462 Unknown [id number] 2.16.840.1.935643.3.579.2.462 Unknown [id number] 2.16.840.1.082547.3.579.2.462 Unknown [id number] 2.16.840.1.828130.3.579.2.462 Unknown [id number] 2.16.840.1.847354.3.579.2.462 Unknown [id number] 2.840.1.741269.3.579.2.462 Unknown [id number] 2.840.1.429184.3.579.2.462 Unknown [id number] 2.16840.1.106960.3.579.2.462 Unknown [id number] 2.840.1.801778.3.579.2.462 Unknown [id number] 2.840.1.469919.3.579.2.462 Unknown [id number] 2.840.1.884808.3.579.2.462 Unknown [id number] 2.16.840.1.898243.3.579.2.462 Unknown [id number] 2.16.840.1.968196.3.579.2.462 Unknown [id number] 2.16.840.1.852159.3.579.2.462 Unknown [id number] 2.16840.1.088384.3.579.2.462 Unknown [id number] 2.16.840.1.530527.3.579.2.462 Unknown [id number] 2.16.840.1.158724.3.579.2.462 Unknown [id number] 2.16.840.1.572726.3.579.2.462 Unknown [id number] 2.16.840.1.459872.3.579.2.462 Unknown [id number] 2.16.840.1.990349.3.579.2.462 Social History Date Type Detail Facility Tobacco smoking stat [facility] Unknown if ever smoked [facility] Start: 1950 Sex Assigned At Not on file [facility] Start: 08-15-2020 End: 10-17-2020 Tobacco smoking status NHIS Never smoker [employer] Exposure to SARS-CoV -2 (event) Not sure [employer] Start: 10-17-2020 End: 01-10-2024 Tobacco use and exposure Never used [employer] Work Phone: Start: 11-03-2021 End: 12-08-2023 Tobacco smoking status MNIS Unknown if ever smoked [facility] Start: 11-15-2020 None [facility] Start: 09-21-2020 Alone [facility] Start: 11-15-2020 Cigarettes [facility] Start: 1950 Sex Assigned At Female [facility] Start: 01-10-2024 End: 03-30-2025 Tobacco smoking status NHIS Ex-smoker [facility] End: 08-09-2018 History of tobacco use Current smoker [facility] End: 08-09-2018 History of tobacco use Cigarette Smoker [facility] Start: 01-10-2024 Cigarettes smoked current (pack per day) - Reported 1.5 [facility] History of tobacco use Passive smoker [facility] Start: 01-10-2024 Alcohol intake Current non-dr linker up of alcohol (finding) [facility] Start: 01-10-2024 Tobacco use panel [facility] Start: 10-28-2024 Sex Female (finding) [facility] Medical Equipment Procedure Code Equipment Code Equipment Original Text Equipment Identifier Dates use 1 TEST STRIP to TEST BLOOD SUGAR 4 TIMES A DAY [id number] Start: 07-24-2020 use 1 LANCET to TEST BLOOD SUGAR four times a day [id number] Start: 07-24-2020 use 1 PEN NEEDLE to inject MEDICATION subcutaneously four times a day [id number] Start: 10-07-2020 use as directed [id number] Start: 07-25-2020 Blood Sugar Diag nostic (Accu-Chek Aundrea Plus Test Strp) strip Start: 11-05-2020 Accu Chek Soft c lick lancets Start: 11-20-2019 End: 11-22-2019 Accu Chek Soft c lick lancets Start: 11-22-2019 End: 12-22-2019 Blood Sugar Diag nostic (Accu-Chek Aundrea Plus Test Strp) strip Start: 12-20-2019 End: 12-21-2019 Blood Sugar Diag nostic (Accu-Chek Aundrea Plus Test Strp) strip Start: 07-24-2020 End: 08-16-2020 Blood Sugar Diag nostic (Accu-Chek Aundrea Plus Test Strp) strip Start: 12-21-2019 End: 12-22-2019 Insulin Syringe- Needle U-100 (Bd Safetyglide Insulin Syringe) 1 mL 29 gauge x 1/2" syringe Start: 07-25-2019 End: 07-25-2019 Insulin Syringe- Needle U-100 (Bd Safetyglide Insulin Syringe) 1 mL 29 gauge x 1/2" syringe Start: 07-25-2019 End: 11-08-2019 Blood Sugar Diag nostic (Accu-Chek Aundrea Plus Test Strp) strip Start: 11-05-2020 Accu Chek Soft c lick lancets Start: 11-20-2019 End: 11-22-2019 Accu Chek Soft c lick lancets Start: 11-22-2019 End: 12-22-2019 Blood Sugar Diag nostic (Accu-Chek Aundrea Plus Test Strp) strip Start: 12-20-2019 End: 12-21-2019 Blood Sugar Diag nostic (Accu-Chek Aundrea Plus Test Strp) strip Start: 07-24-2020 End: 08-16-2020 Blood Sugar Diag nostic (Accu-Chek Aundrea Plus Test Strp) strip Start: 12-21-2019 End: 12-22-2019 Insulin Syringe- Needle U-100 (Bd Safetyglide Insulin Syringe) 1 mL 29 gauge x 1/2" syringe Start: 07-25-2019 End: 07-25-2019 Insulin Syringe- Needle U-100 (Bd Safetyglide Insulin Syringe) 1 mL 29 gauge x 1/2" syringe Start: 07-25-2019 End: 11-08-2019 Blood Sugar Diag nostic (Accu-Chek Aundrea Plus Test Strp) strip Start: 11-05-2020 Accu Chek Soft c lick lancets Start: 11-20-2019 End: 11-22-2019 Accu Chek Soft c lick lancets Start: 11-22-2019 End: 12-22-2019 Blood Sugar Diag nostic (Accu-Chek Aundrea Plus Test Strp) strip Start: 12-20-2019 End: 12-21-2019 Blood Sugar Diag nostic (Accu-Chek Aundrea Plus Test Strp) strip Start: 07-24-2020 End: 08-16-2020 Blood Sugar Diag nostic (Accu-Chek Aundrea Plus Test Strp) strip Start: 12-21-2019 End: 12-22-2019 Insulin Syringe- Needle U-100 (Bd Safetyglide Insulin Syringe) 1 mL 29 gauge x 1/2" syringe Start: 07-25-2019 End: 07-25-2019 Insulin Syringe- Needle U-100 (Bd Safetyglide Insulin Syringe) 1 mL 29 gauge x 1/2" syringe Start: 07-25-2019 End: 11-08-2019 Blood Sugar Diag nostic (Accu-Chek Aundrea Plus Test Strp) strip Start: 11-05-2020 Accu Chek Soft c lick lancets Start: 11-20-2019 End: 11-22-2019 Accu Chek Soft c lick lancets Start: 11-22-2019 End: 12-22-2019 Blood Sugar Diag nostic (Accu-Chek Aundrea Plus Test Strp) strip Start: 12-20-2019 End: 12-21-2019 Blood Sugar Diag nostic (Accu-Chek Aundrea Plus Test Strp) strip Start: 07-24-2020 End: 08-16-2020 Blood Sugar Diag nostic (Accu-Chek Aundrea Plus Test Strp) strip Start: 12-21-2019 End: 12-22-2019 Insulin Syringe- Needle U-100 (Bd Safetyglide Insulin Syringe) 1 mL 29 gauge x 1/2" syringe Start: 07-25-2019 End: 07-25-2019 Insulin Syringe- Needle U-100 (Bd Safetyglide Insulin Syringe) 1 mL 29 gauge x 1/2" syringe Start: 07-25-2019 End: 11-08-2019 Blood Sugar Diag nostic (Accu-Chek Aunrdea Plus Test Strp) strip Start: 11-05-2020 Accu Chek Soft c lick lancets Start: 11-20-2019 End: 11-22-2019 Accu Chek Soft c lick lancets Start: 11-22-2019 End: 12-22-2019 Blood Sugar Diag nostic (Accu-Chek Aundrea Plus Test Strp) strip Start: 12-20-2019 End: 12-21-2019 Blood Sugar Diag nostic (Accu-Chek Aundrea Plus Test Strp) strip Start: 07-24-2020 End: 08-16-2020 Blood Sugar Diag nostic (Accu-Chek Aundrea Plus Test Strp) strip Start: 12-21-2019 End: 12-22-2019 Insulin Syringe- Needle U-100 (Bd Safetyglide Insulin Syringe) 1 mL 29 gauge x 1/2" syringe Start: 07-25-2019 End: 07-25-2019 Insulin Syringe- Needle U-100 (Bd Safetyglide Insulin Syringe) 1 mL 29 gauge x 1/2" syringe Start: 07-25-2019 End: 11-08-2019 Blood Sugar Diag nostic (Accu-Chek Aundrea Plus Test Strp) strip Start: 11-05-2020 Accu Chek Soft c lick lancets Start: 11-20-2019 End: 11-22-2019 Accu Chek Soft c lick lancets Start: 11-22-2019 End: 12-22-2019 Blood Sugar Diag nostic (Accu-Chek Aundrea Plus Test Strp) strip Start: 12-20-2019 End: 12-21-2019 Blood Sugar Diag nostic (Accu-Chek Aundrea Plus Test Strp) strip Start: 07-24-2020 End: 01-08-2021 Blood Sugar Diag nostic (Accu-Chek Aundrea Plus Test Strp) strip Start: 12-21-2019 End: 12-22-2019 Insulin Syringe- Needle U-100 (Bd Safetyglide Insulin Syringe) 1 mL 29 gauge x 1/2" syringe Start: 07-25-2019 End: 07-25-2019 Insulin Syringe- Needle U-100 (Bd Safetyglide Insulin Syringe) 1 mL 29 gauge x 1/2" syringe Start: 07-25-2019 End: 11-08-2019 Blood Sugar Diag nostic (Accu-Chek Aundrea Plus Test Strp) strip Start: 11-05-2020 Accu Chek Soft c lick lancets Start: 11-20-2019 End: 11-22-2019 Accu Chek Soft c lick lancets Start: 11-22-2019 End: 12-22-2019 Blood Sugar Diag nostic (Accu-Chek Aundrea Plus Test Strp) strip Start: 12-20-2019 End: 12-21-2019 Blood Sugar Diag nostic (Accu-Chek Aundrea Plus Test Strp) strip Start: 07-24-2020 End: 08-16-2020 Blood Sugar Diag nostic (Accu-Chek Aundrea Plus Test Strp) strip Start: 12-21-2019 End: 12-22-2019 Insulin Syringe- Needle U-100 (Bd Safetyglide Insulin Syringe) 1 mL 29 gauge x 1/2" syringe Start: 07-25-2019 End: 07-25-2019 Insulin Syringe- Needle U-100 (Bd Safetyglide Insulin Syringe) 1 mL 29 gauge x 1/2" syringe Start: 07-25-2019 End: 11-08-2019 Blood Sugar Diag nostic (Accu-Chek Aundrea Plus Test Strp) strip Start: 11-05-2020 Accu Chek Soft c lick lancets Start: 11-20-2019 End: 11-22-2019 Accu Chek Soft c lick lancets Start: 11-22-2019 End: 12-22-2019 Blood Sugar Diag nostic (Accu-Chek Aundrea Plus Test Strp) strip Start: 12-20-2019 End: 12-21-2019 Blood Sugar Diag nostic (Accu-Chek Aundrea Plus Test Strp) strip Start: 07-24-2020 End: 08-16-2020 Blood Sugar Diag nostic (Accu-Chek Aundrea Plus Test Strp) strip Start: 12-21-2019 End: 12-22-2019 Insulin Syringe- Needle U-100 (Bd Safetyglide Insulin Syringe) 1 mL 29 gauge x 1/2" syringe Start: 07-25-2019 End: 07-25-2019 Insulin Syringe- Needle U-100 (Bd Safetyglide Insulin Syringe) 1 mL 29 gauge x 1/2" syringe Start: 07-25-2019 End: 11-08-2019 Blood Sugar Diag nostic (Accu-Chek Aundrea Plus Test Strp) strip Start: 11-05-2020 Accu Chek Soft c lick lancets Start: 11-20-2019 End: 11-22-2019 Accu Chek Soft c lick lancets Start: 11-22-2019 End: 12-22-2019 Blood Sugar Diag nostic (Accu-Chek Aundrea Plus Test Strp) strip Start: 12-20-2019 End: 12-21-2019 Blood Sugar Diag nostic (Accu-Chek Aundrea Plus Test Strp) strip Start: 07-24-2020 End: 08-16-2020 Blood Sugar Diag nostic (Accu-Chek Aundrea Plus Test Strp) strip Start: 12-21-2019 End: 12-22-2019 Insulin Syringe- Needle U-100 (Bd Safetyglide Insulin Syringe) 1 mL 29 gauge x 1/2" syringe Start: 07-25-2019 End: 07-25-2019 Insulin Syringe- Needle U-100 (Bd Safetyglide Insulin Syringe) 1 mL 29 gauge x 1/2" syringe Start: 07-25-2019 End: 11-08-2019 Blood Sugar Diag nostic (Accu-Chek Aundrea Plus Test Strp) strip Start: 11-05-2020 Accu Chek Soft c lick lancets Start: 11-20-2019 End: 11-22-2019 Accu Chek Soft c lick lancets Start: 11-22-2019 End: 12-22-2019 Blood Sugar Diag nostic (Accu-Chek Aundrea Plus Test Strp) strip Start: 12-20-2019 End: 12-21-2019 Blood Sugar Diag nostic (Accu-Chek Aundrea Plus Test Strp) strip Start: 07-24-2020 End: 08-16-2020 Blood Sugar Diag nostic (Accu-Chek Aundrea Plus Test Strp) strip Start: 12-21-2019 End: 12-22-2019 Insulin Syringe- Needle U-100 (Bd Safetyglide Insulin Syringe) 1 mL 29 gauge x 1/2" syringe Start: 07-25-2019 End: 07-25-2019 Insulin Syringe- Needle U-100 (Bd Safetyglide Insulin Syringe) 1 mL 29 gauge x 1/2" syringe Start: 07-25-2019 End: 11-08-2019 Blood Sugar Diag nostic (Accu-Chek Aundrea Plus Test Strp) strip Start: 11-05-2020 Accu Chek Soft c lick lancets Start: 11-20-2019 End: 11-22-2019 Accu Chek Soft c lick lancets Start: 11-22-2019 End: 12-22-2019 Blood Sugar Diag nostic (Accu-Chek Aundrea Plus Test Strp) strip Start: 12-20-2019 End: 12-21-2019 Blood Sugar Diag nostic (Accu-Chek Aundrea Plus Test Strp) strip Start: 07-24-2020 End: 08-16-2020 Blood Sugar Diag nostic (Accu-Chek Aundrea Plus Test Strp) strip Start: 12-21-2019 End: 12-22-2019 Insulin Syringe- Needle U-100 (Bd Safetyglide Insulin Syringe) 1 mL 29 gauge x 1/2" syringe Start: 07-25-2019 End: 07-25-2019 Insulin Syringe- Needle U-100 (Bd Safetyglide Insulin Syringe) 1 mL 29 gauge x 1/2" syringe Start: 07-25-2019 End: 11-08-2019 Blood Sugar Diag nostic (Accu-Chek Aundrea Plus Test Strp) strip Start: 07-22-2022 Accu Chek Soft c lick lancets Start: 11-20-2019 End: 11-22-2019 Accu Chek Soft c lick lancets Start: 11-22-2019 End: 12-22-2019 Blood Sugar Diag nostic (Accu-Chek Aundrea Plus Test Strp) strip Start: 12-20-2019 End: 12-21-2019 Blood Sugar Diag nostic (Accu-Chek Aundrea Plus Test Strp) strip Start: 07-24-2020 End: 08-16-2020 Blood Sugar Diag nostic (Accu-Chek Aundrea Plus Test Strp) strip Start: 12-21-2019 End: 12-22-2019 Blood Sugar Diag nostic (Accu-Chek Aundrea Plus Test Strp) strip Start: 11-05-2020 End: 07-22-2022 Insulin Syringe- Needle U-100 (Bd Safetyglide Insulin Syringe) 1 mL 29 gauge x 1/2" syringe Start: 07-25-2019 End: 07-25-2019 Insulin Syringe- Needle U-100 (Bd Safetyglide Insulin Syringe) 1 mL 29 gauge x 1/2" syringe Start: 07-25-2019 End: 11-08-2019 Blood Sugar Diag nostic (Accu-Chek Aundrea Plus Test Strp) strip Start: 07-22-2022 Accu Chek Soft c lick lancets Start: 11-20-2019 End: 11-22-2019 Accu Chek Soft c lick lancets Start: 11-22-2019 End: 12-22-2019 Blood Sugar Diag nostic (Accu-Chek Aundrea Plus Test Strp) strip Start: 12-20-2019 End: 12-21-2019 Blood Sugar Diag nostic (Accu-Chek Aundrea Plus Test Strp) strip Start: 07-24-2020 End: 08-16-2020 Blood Sugar Diag nostic (Accu-Chek Aundrea Plus Test Strp) strip Start: 12-21-2019 End: 12-22-2019 Blood Sugar Diag nostic (Accu-Chek Aundrea Plus Test Strp) strip Start: 11-05-2020 End: 07-22-2022 Insulin Syringe- Needle U-100 (Bd Safetyglide Insulin Syringe) 1 mL 29 gauge x 1/2" syringe Start: 07-25-2019 End: 07-25-2019 Insulin Syringe- Needle U-100 (Bd Safetyglide Insulin Syringe) 1 mL 29 gauge x 1/2" syringe Start: 07-25-2019 End: 11-08-2019 Goals Date Patient Goal Desired Activity /State Functional Status Date Assessment Result Facility 08-26-2023 Functional status Ambulates [facility] Work Phone: 06-04-2023 Functional status Ambulates [facility] Work Phone: 05-30-2023 Functional status Ambulates;Up ad bebeto [facility] Work Phone: 01-28-2023 Functional status Ambulates [facility] Work Phone: 12-26-2022 Functional status Ambulates;Bath room Privilege;Active [employer] [facility] Work Phone: 10-23-2021 Functional status Ambulates;Up a d bebeto;Bedside Commode [facility] Work Phone: 10-13-2021 Functional status Ambulates [facility] Work Phone: 08-12-2021 Functional status Up ad bebeto [facility] Work Phone: 08-10-2021 Functional status Ambulates;Up a d bebeto;Bathroom Privilege [facility] Work Phone: Mental Status Date Assessment Result Facility 12-23-2024 Cognitive function Awake;Alert;A ppropriate;Fol lows Commands [facility] Work Phone: 08-02-2024 Cognitive function Awake;Alert;A ppropriate;Fol lows Commands [facility] Work Phone: 07-04-2024 Cognitive function Awake;Alert;A ppropriate;Fol lows Commands [facility] Work Phone: 08-26-2023 Cognitive function Voice/Name [facility] Work Phone: 06-04-2023 Cognitive function Voice/Name [facility] Work Phone: 05-29-2023 Cognitive function Voice/Name [facility] Work Phone: 05-25-2023 Cognitive function Awake;Alert;A ppropriate;Fol lows Commands [facility] Work Phone: 03-18-2023 Cognitive function Voice/Name [facility] Work Phone: 01-27-2023 Cognitive function Voice/Name [facility] Work Phone: 01-04-2023 Cognitive function Voice/Name [facility] Work Phone: 12-27-2022 Cognitive function Awake;Alert;A ppropriate;Fol lows Commands [facility] Work Phone: 12-26-2022 Cognitive function Voice/Name [facility] Work Phone: 09-23-2022 Cognitive function Awake;Alert;Appropriat e [facility] Work Phone: 08-17-2022 Cognitive function Awake;Alert;Appropriat e [facility] Work Phone: 07-15-2022 Cognitive function Voice/Name [facility] Work Phone: 12-29-2021 Cognitive function Awake;Alert;A ppropriate;Fol lows Commands [facility] Work Phone: 12-22-2021 Cognitive function Voice/Name [facility] Work Phone: 12-19-2021 Cognitive function Voice/Name [facility] Work Phone: 12-19-2021 Cognitive function Awake;Alert;A ppropriate;Fol lows Commands [facility] Work Phone: 12-15-2021 Cognitive function Voice/Name [facility] Work Phone: 12-11-2021 Cognitive function Voice/Name [facility] Work Phone: 10-23-2021 Cognitive function Voice/Name [facility] Work Phone: 10-13-2021 Cognitive function Voice/Name [facility] Work Phone: 08-12-2021 Cognitive function Voice/Name [facility] Work Phone: 08-10-2021 Cognitive function Appropriate;Mya jose maria [facility] Work Phone: Clinical Notes 09-24-2022 to 05-23-2025 Note Date & Type Note Facility 05-23-2025 Progress note Note Date/Time May 23, 2025 2:35pm [facility] [address], [address] [place] [address] OFFICE VISIT Date of Service: 05/23/25 MR#: [id number] Acct: [id number] Name: JEANNA VARGAS Rep #: [id number] : 1950 Provider: SYMONE Palm Age/Sex: 74/F [place] [facility] [place]: Signed Intake Vital Signs 04/27/25 08:54 05/23/25 14:11 05/23/25 14:12 Height 5 ft 2 in 5 ft 2 in 5 ft 2 in Weight: 212 lb 213 lb BMI 38.7 38.9 BP 119/78 118/46 L Blood Pressure Location Lt brachial Position Sitting Respiration 20 H Pulse 66 Pulse Source Monitor Temp 97.4 F L Temperature Source Temporal Artery Pulse Oximetry (%) 97 Oxygen Delivery Method nasal canula Oxygen Flow Rate (L/min) 5 Intake Visit Reasons: Vaginal Discharge/itching Sheet [place] Sander Required: No Is patient in pain?: No Allergies Iodinated Contrast Media Allergy (Severe, Verified 05/23/25 14:11) Anaphylaxis amoxicillin (Amoxicillin) Allergy (Intermediate, Verified 05/23/25 14:11) Rash hydrocodone Allergy (Intermediate, Verified 05/23/25 14:11) SWELLING gabapentin (From Neurontin) Allergy (Verified 05/23/25 14:11) Shortness of breath levofloxacin (From Levaquin) Allergy (Verified 05/23/25 14:11) Hives pseudoephedrine HCl (From Sudafed) Allergy (Verified 05/23/25 14:11) Shortness of breath red dye Allergy (Verified 05/23/25 14:11) Hives prednisone Adverse Reaction (Severe, Verified 05/23/25 14:11) mean mood clonazepam (From Klonopin) Adverse Reaction (Verified 05/23/25 14:11) Depression codeine Adverse Reaction (Verified 05/23/25 14:11) HEADACHE Medications ?Medication ?Instructions ?Recorded ?Confirmed ?Type Handicap Placard #1 ea 12/12/20 05/23/25 Rx bisacodyl 5 mg tablet,delayed 5 mg PO QHS PRN constipa tion 30 11/13/21 05/23/25 Rx release (Dulcolax (bisacodyl)) days #30 tabs pen needle, diabetic 32 gauge x #50 ea 02/11/22 Rx 5/32" blood sugar diagnostic (True #100 ea 09/11/22 05/23/25 Rx Metrix Glucose Test Strip) blood-glucose meter (True Metrix #1 ea 09/11/22 Rx Glucose Meter) albuterol sulfate 90 mcg/actuation 2 puff inhalation Q 6H PRN 11/06/22 05/23/25 Rx aerosol inhaler shortness of breath or wheez ing #18 grams ipratropium 0.5 mg-albuterol 3 mg 3 ml inhalation Q4H PRN PRN SOB 11/10/22 05/23/25 Rx (2.5 mg base)/3 mL nebulization &/OR WHEEZING #180 mL soln cane #1 ea 11/16/22 05/23/25 Rx citalopram 40 mg tablet 40 mg PO QHS depression #90 tabs 11/16/22 05/23/25 Rx isosorbide mononitrate 60 mg 60 mg PO DAILY BP #90 tab s 12/26/22 05/23/25 Rx tablet,extended release 24 hr nitroglycerin 0.4 mg sublingual 0.4 mg sublingual Q5-1 5M PRN Pain 12/26/22 05/23/25 Rx tablet #30 tabs flash glucose sensor (FreeStyle #2 ea 01/06/23 5 Rx Tanika 2 Sensor kit) atorvastatin 80 mg tablet 80 mg PO QHS cholesterol 05/23/25 History clopidogrel 75 mg tablet 75 mg PO DAILY blood thinner 01/26/23 05/23/25 History metoprolol tartrate 25 mg tablet 12.5 mg PO BID blood pressure 01/26/23 05/23/25 History flash glucose scanning reader #1 ea 03/23/23 05/23/25 Rx (FreeStyle Tanika 2 [place]) pantoprazole 40 mg tablet,delayed 40 mg PO BID stomach #180 tabs 05/20/23 05/23/25 Rx release dextrose 40 % oral gel (Glucose 10 g PO Q15M PRN hypog lycemia 07/23/23 05/23/25 History Gel) budesonide 1 mg/2 mL suspension 0.5 mg inhalation BID breathing 08/13/23 05/23/25 History for nebulization potassium chloride 20 mEq 20 meq PO BID supplement 05/23/25 History tablet,extended release insulin lispro 100 unit/mL See Protocol subcut ACHS #0 mL 08/26/23 05/23/25 Rx subcutaneous pen (Humalog KwikPen (U-100) Insulin) dulaglutide 0.75 mg/0.5 mL 0.75 mg subcut QWEEK 05/23/25 History subcutaneous pen injector fluticasone propionate 50 1 spray intranasal Q12H PRN 12/18/23 05/23/25 History mcg/actuation nasal allergy symptoms spray,suspension (Allergy Relief (fluticasone)) insulin glargine 100 unit/mL (3 30 unit subcut QHS becky betic 12/18/23 05/23/25 History mL) subcutaneous pen (Basaglar managment KwikPen U-100 Insulin) tizanidine 2 mg capsule (Zanaflex) 2 mg PO Q8H PRN mus jeffery spasticity 12/18/23 05/23/25 History ondansetron 4 mg disintegrating 4 mg PO Q8H PRN PRN Na usea #10 tabs 12/28/23 05/23/25 Rx tablet losartan 50 mg tablet 50 mg PO QDAY 04/25/2405/23 History acetaminophen 500 mg tablet 1,000 mg PO Q8 PRN pain 05/23/25 History insulin lispro 100 unit/mL 5 unit subcut 1700 06/04/24 05/23/25 History subcutaneous pen (Humalog KwikPen (U-100) Insulin) insulin lispro 100 unit/mL 15 unit subcut QHS diabetes 06/04/24 05/23/25 History subcutaneous pen (Humalog KwikPen (U-100) Insulin) montelukast 10 mg tablet 10 mg PO QHS #7 tabs 08/02/ 4 05/23/25 Rx (Singulair) furosemide 40 mg tablet (Lasix) 40 mg PO QAM 08/24/24 05/23/25 History prednisone 2.5 mg tablet 2.5 mg PO QDAY 08/24/24 1012/31 History lidocaine 5 % topical 1 patch topical DAILY PRN pa in #60 09/01/24 05/23/25 Rx patch-adhesive silicone combo pack ea linaclotide 290 mcg capsule 290 mcg PO QAM #90 caps 05/23/25 Rx polyethylene glycol 3350 17 17 g PO QDAY #850 grams 05/23/25 Rx gram/dose oral powder (Miralax) sucralfate 1 gram tablet 1 g PO TID 02/08/25 05/23/25 History nystatin 100,000 unit/gram topical 1 applic topical BI D #45 ea 03/30/25 05/23/25 Rx powder (Nystop) alprazolam 0.25 mg tablet 0.25 mg PO QHS PRN anxiety # 30 tabs 04/18/25 05/23/25 Rx alprazolam 0.25 mg tablet (Xanax) 0.25 mg PO QHS PRN 0 04/27/25 05/23/25 History aluminum-magnesium hydroxide 200 30 ml PO Q4-6H PRN 05/23/25 History mg-200 mg/5 mL oral suspension artifi.tears(hypromellose)(PF) 1.7 1 drp ophthalmic (e ye) .qid PRN 04/27/25 05/23/25 History % eye drops with applicator clotrimazole 1 % vaginal cream 1 appful vaginal QHS 05/23/25 History multivitamin-iron 9 mg-folic acid 1 tab PO QAM 5 05/23/25 History 400 mcg-calcium and minerals tablet (Thera-M) Is last menstrual period known: No Post menopausal: Yes Patient : No : No PFSH Medical History MRSA (methicillin resistant staph aureus) culture positive Muscle ache of extremity Sinusitis Anxiety Pancreatitis On home oxygen therapy Coronary artery disease Chronic constipation Insomnia Endotracheally intubated Bilateral pneumonia MARK treated with BiPAP Morbid obesity Diastolic CHF Chest pain Obesity Chronic back pain Anxiety and depression Anemia Thyroid nodule Hepatitis Former smoker Psoriasis Smoking greater than 40 pack years HLD (hyperlipidemia) Back pain Asthma with COPD Type 2 diabetes mellitus Hypertension Atherosclerotic heart disease of [place] coronary artery without angina pectoris Chronic respiratory failure COPD (chronic obstructive pulmonary disease) Surgical History History of coronary artery stent placement History of left heart catheterization (LHC) (~09/23/20) History of cholecystectomy Stented coronary artery (12/28/18) Family History Brother Heart disease Mother Colon cancer Heart disease Social History housing: assisted living facility number of children: 2 Smoking Status: Former smoker pack-years: 40 how long ago did patient quit smokin years ago alcohol intake: never substance use type: does not use caffeine: Yes Type: carbonated beverages and tea what type of physical activity do you participate in: none do you feel safe at home: Yes additional social history: - Ethan HPI Vaginal Discharge/itching Details: JEANNA VARGAS is a 74 year old who presents for vaginal itching. She reports she has noticed intense vaginal/perineal itching. Reports this is also under her breast tissue too. She has tried anti-itch cream as well as a&d. Reports she tried an antibiotic cream as well. Nothing is helping and she continues to have the itching and feeling raw. History 2 Elective abortions Hx Para 2 Spontaneous abortions 1 Hx # Term Pregnancies Ectopic pregnancies Hx # Pregnancies Multiple births 1 # of living children 2 Past Pregnancies Del. Date Name GA/Weeks Outcome Route Bth Weight Gen Labor Lgth Anesthesia Del Locatn Provider FOB Unknown 1972 [place] Unknown 1972 [place] ROS Const Constitutional: Denies body ache, chills, fatigue or fever(s) Resp Resp: Reports system reviewed and no additional complaints, except as documented GI GI: Reports system reviewed and no additional complaints, except as documented : Reports system reviewed and no additional complaints, except as documented and vaginal pruritus Skin Skin/Breast: Reports system reviewed and no additional complaints, except as documented; Denies new lesions Exam Const General: cooperative and no acute distress Orientation: alert HENMT Head: normal to inspection and normocephalic Ears: hearing grossly normal bilaterally and external ears normal Nose: external nose normal, nares normal and other (NC oxygen in place) Face and sinus: normal facial exam Chest Breast inspection: abnormal inspection of the breast (yeast dermatitis appearingunder bilateral breast tissue) External Female Exam: normal appearance of the urethra and other (yeast dermatitis to perineal folds. ) Urethra: normal appearance of the urethra Speculum Exam - Vagina: other (declines pelvic exam. able to obtain culture only) Skin General: no rashes or lesions noted Neuro General: patient alert, patient awake, moves all extremities and no focal motor deficits Coding Level of Care Code Established Pt Off vis,est,level 3 Patient Type Established Diagnoses Vaginal itching N89.8 Yeast dermatitis B37.2 Assessment and Plan Assessment and Plan (1) Vaginal itching: Status: Acute Plan: Culture obtained; Nystatin/Triamcinolone ointment given; script written and given to patient to obtain through nursing facility.; appropriate perineal care advised. Keep area clean/dry. Wash with water only. (2) Yeast dermatitis: Status: Acute Plan: See number 1. Follow up 2 weeks for repeat exam. Orders: Orders Culture, Genital Comprehensive Today N89.8 - Other specified noninflammatory disorders of vagina Plan Details Follow Up: 2 Weeks (yeast dermatitis f/u) 05/23/25 4401 <Electronically signed by Shonda CERVANTESC> Date _ Shonda ASHBY Cosigner Signature: Date (if applicable) CC: ~ Brogan Recoup Work Phone: 1(958) 301-433210-08-2025 NoteHNO ID: [id number] Author: CANDY, KATIA, PA-C Service: ? Author Type: Physician Education Supervisor Type: Progress Notes Filed: 05/16/2025 15:18 Note Text: Katia Gupta PA-C [facility] [address] [facility] [address] [place] [address] 05/16/2025 ASSESSMENT AND PLAN: Assessment : Encounter Diagnosis ICD-10-CM 1. Radiculopathy, cervical region M54.12 CONSULT TO PHYSICAL THERAPY XR CERV OTHER 4V AP/LAT/FLX/EXT 2. Neck pain M54.2 CONSULT TO PHYSICAL THERAPY XR CERV OTHER 4V AP/LAT/FLX/EXT Discussion: Mrs. Vargas is a pleasant 74-year-old female brought here today by a transport service from her F. She is seated in a wheelchair for today's visit but also was able to use a rollator. She has an oxygen concentrator and has COPD. Her breathing is rapid and shallow. She talks about LUE radiating symptoms from the side of her neck all the way down to the "whole hand". This has been going on for a couple of months without known injury. She has tried lidocaine patches, Benzocaine cream, Tylenol, Zanaflex. These all help a bit EXAM Highlights: Slow to mobilize out of her wheelchair and is somewhat unsteady on her feet. She initially thought that she could get up onto the exam table but realized since there were no hand railings or grab handles, she really could not do that on her own. We completed the exam seated in the wheelchair. There is pain on palpation over the musculature on the lateral side of the neck and in the trapezial region and throughout the LUE. 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 She has hyporeflexia throughout BUE and it is symmetrical. She has mild deconditioning-related weakness throughout upper extremities. There is no focal motor deficit specific to a nerve root function. Cervical motion reproduces neck pain mostly in the back and on the left side. Motion is minimally limited. IMAGING: There are no images in her [facility] chart to review SUMMARY/PLAN: She has not had any care or evaluation previously for this problem and symptoms are only 2 months old. She has not had any treatment yet so we will start her in supervised PT and I would obtain some cervical x-rays for a baseline determination. She may have cervical radiculopathy but that is uncertain based on her physical examination. Plan : DIAGNOSTIC TESTING: -X-ray views will be obtained to better evaluate bony structures. -Dynamic plain radiographs of the Cervical spine are ordered. REFERAL FOR SERVICES: -Physical therapy will be instituted. MEDICATIONS: -Current medication regimen is appropriate for this problem. ACTIVITY RECOMMENDATIONS: -The patient is encouraged to avoid bed rest and maintain normal activity. -The patient is encouraged to exercise regularly as tolerated. FOLLOW-UP: -The patient is instructed to return as needed. This document has been created with the use of voice recognition technology. It may contain inaccuracies: (e.g. misspellings, inaccurate syntax or word sense) that have escaped review. Time spent: 45 minutes today with this patient visit. This includes [id number] time, review of chart records regarding conservative care history, spine-pertinent imaging, and communication/care coordination with referring provider, problem-specific history-taking and counseling/education regarding treatment options. cc: No referring provider defined for this encounter. Phone: N/A Fax: Results of consultation to be transmitted via electronic medical record for those providers who practice within [facility] or with access to [facility] via MD Connect, or via letter. ######################################################################## CHIEF COMPLAINT: Patient is here for the neck pain, left side of the face, left shoulder, left arm and hand. Has this pain for 2 months now, woke up with swelling in her face, shoulder and upper arm, left side. Level of the pain is at 7/10. Sometimes has numbness and tingling in her arms and hands. HPI: See "Discussiuon" above History of bowel or bladder dysfunction (not IBS or constipation): No History of previous spinal surgery: No History of spinal fracture: No Work Status: retired NON-OPERATIVE CARE: Medication(s): She has tried the following for relief of her symptoms: OTC Tylenol Muscle relaxant: Zanaflex Lidoderm patches Physical Therapy: She has not had physical therapy for her current symptoms. Spinal Injections: She has not gotten prior spinal injections. Other: None Current Outpatient Medications Medication Sig Dispense Refill XANAX 0.25 mg tablet Take 0.25 mg by mouth at bedtime as needed for anxiety. (Patient taking differently: Take 0.25 mg by mouth once daily. At bedtime) citalopram (CELEXA) 40 mg ta (more content not included)...[facility]09-19-2025 Radiology Diagnostic study [facility] 03-15-2025 NoteHNO ID: [id number] Author: FIDELIA VÁSQUEZ MD Service: ? Author Type: Physician Type: Progress Notes Filed: 03/15/2025 18:27 Note Text: [facility] Follow up visit NAME: Jeanna Vargas PCP: Mike Richard MD Self referral Chief Complaint: patient's concern for Bernardston's syndrome HPI: Jeanna Vargas is a 74 year old female is presenting as she has concerns for possible Fausto's syndrome due to use of steroids. She was initially seen for thyroid nodules in 01/2024, and difficulty swallowing A repeat thyroid ultrasound as reported by patient, did not show any changes in nodule size Today, patient rather presents for a new complain but is scheduled as a follow up She recently started noticing neck, shoulder swelling and pain which she thinks is due to inhalational steroid use and would like to have work up for Bernardston's She has COPD for which she was on prednisone oral daily in the past, not any more. She is now on inhalational steroids only She When asked how does she know about Fausto's she reported she researched and is worried due to neck swelling, and is looking for answers, as her PCP suggested pain management referral for the pain, and possible neck surgery if she is worried about the neck swelling which apparently was assumed to be due to fat deposition. 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) Atrial fibrillation (HCC) Chronic diastolic heart failure (HCC) COPD (chronic obstructive pulmonary disease) (HCC) Gastroesophageal reflux disease (muscular dystrophy) (HCC) OCD (obsessive compulsive disorder) Oxygen dependent chronic O2 @ 4L per NC Type 2 diabetes mellitus with other manifestations (HCC) PAST SURGICAL HISTORY Procedure Laterality Date CHOLECYSTECTOMY Cholecystectomy ALLERGIES Allergen Reactions Omeprazole Shortness of Breath nervous Amoxicillin Rash, Hives Clonazepam Unknown Codeine Other: See Comments headache Gabapentin Unknown Hydrocodone Unknown Iodinated Contrast * Unknown Levaquin [Levofloxa* Hives can take liquid if no red dye Ranitidine Hives due to the red dye Red Dye Hives Sudafed [Pseudoephe* Rash Social History Tobacco Use Smoking status: Former Current packs/day: 0.00 Types: Cigarettes Quit date: 2018 Years since quittin.6 Passive exposure: Past Smokeless tobacco: Never Vaping Use Vaping status: Never Used Substance Use Topics Alcohol use: No Drug use: Never FAMILY HISTORY Problem Relation Age of Onset Colon Cancer Mother COPD Father Heart Brother Thyroid No Family History MEDICATIONS: Current Outpatient Medications on File Prior [...] SYSTEMS: As per HPI PHYSICAL EXAMINATION: BP: 122/68 Pulse: 71 Resp: 22 SpO2: 97 % During examination, she requested to be done while being seated on the chair General: no acute distress, alert and orientated X 3, on home oxygen with nasal cannula, using walker to ambulate Eyes: EOMI, anicteric sclera Neck - supple, no significant adenopathy Thyroid: due to body habitus, and excess [...] edema, no discoloration Skin: no rash or erythema, obvious bruises LABS AND IMAGING: update at 6.30 pm on 01/10/24 12/31/2023 TSH 2.62 ?IU/mL (0.358-3.74) HbA1c 7.2% Thyroid ultrasound: images and report in scanned documents Dominant nodule in right lobe, and measures 1.7 x 1.7 x 1.4 cm In left l (more content not included)...[facility]07-16-2025 Radiology Diagnostic study [facility]07-03-2025 Evaluation note* Diagnosis Onset Date Resolution Status Admit Date Asthma with COPD chronic February 1:46pm Chronic respiratory failure chronic February 08, 2025 1:46pm Smoking greater than 40 pack years chronic February 08, 2025 1 :46pm Muscle ache of extremity acute February 12, 2025 12:46pm Neck swelling acute February 12 025 12:46pm Neck swelling acute March 08, 2025 2:21pm GERD (gastroesophageal reflux disease) chronic March 08, 2025 2:21pm Hypertension chronic March 08 025 2:21pm Type 2 diabetes mellitus chronic March 08, 2025 2:21pm Vulvar abscess March, acute [place] 1 2024 12:41pm Vulvar abscess March, acute March 102024 1:47pm Vaginal itching acute April 12, 2025 1:44pm Vulvar abscess March, acute [place] 2024 1:44pm Pneumonia acute April 11:06am Shortness of breath acute Septe [facility] 2024 11:06am Asthma with COPD chronic [place] 2024 11:06am Chronic respiratory failure chronic April 27, 2025 11:06am [facility] Work Phone: 1(516) 186-744907-03-2025 Evaluation note* Diagnosis Onset Date Resolution Status Admit Date Asthma with COPD chronic February 1:46pm Chronic respiratory failure chronic February 08, 2025 1:46pm Smoking greater than 40 pack years February 08, 2025 1 :46pm Muscle ache of extremity acute February 12, 2025 12:46pm Neck swelling acute February 12 025 12:46pm Neck swelling acute March 08, 2025 2:21pm GERD (gastroesophageal reflux disease) chronic March 08, 2025 2:21pm Hypertension chronic March 08, 025 2:21pm Type 2 diabetes mellitus chronic March 08, 2025 2:21pm Vulvar abscess March, acute March 092024 12:41pm Vulvar abscess March, acute March 102024 1:47pm Vaginal itching acute April 12, 2025 1:44pm Vulvar abscess March, acute [place] 2024 1:44pm Pneumonia acute April 11:06am Shortness of breath acute Septe [facility] 2024 11:06am Asthma with COPD chronic [place] 2024 11:06am Chronic respiratory failure chronic April 27, 2025 11:06am Vaginal itching acute May 092024 1:42pm Yeast dermatitis acute May 23, 2025 1:42pm [facility] Work Phone: 1(432) 573-958706-17-2025 Radiology Diagnostic study [facility]05-30-2025 Evaluation note* Diagnosis Onset Date Resolution Status Admit Date Neck swelling acute January 05, 2 025 1:14pm Supraclavicular adenopathy acute January 05, 2025 1:14pm Asthma with COPD chronic February 1:46pm Chronic respiratory failure chronic February 08, 2025 1:46pm Smoking greater than 40 pack years chronic February 08, 2025 1 :46pm Muscle ache of extremity acute February 12, 2025 12:46pm Neck swelling acute February 12, 025 12:46pm Neck swelling acute March 08, 2025 2:21pm GERD (gastroesophageal reflu x disease) chronic March 08, 2025 2:21pm Hypertension chronic March 08, 025 2:21pm Type 2 diabetes mellitus chronic March 08, 2025 2:21pm Vulvar abscess March, acute March 092024 12:41pm Vulvar abscess March, acute March 102024 1:47pm [facility] Work Phone: 1(127) 104-717105-18-2025 Discharge summary Author Deon Rodriguez [facility] Note Date/Time December 24, 2024 12:30 am [facility] Medical Records Department [address] [place] [address] Emergency Department Summary 12/23/24 MR#: [id number] Acct: [id number] Name: JEANNA VARGAS Rep #:[id number] : 1950 74 From: Deon Rodriguez MD PCP: Dr. Billy Madera MD Status:R EG ER Location: ED HPI History of Present Illness Chief Complaint: Edema Informant: patient and EMS Narrative Narrative: 74-year-old female states the left side of her neck and her entire left arm was sore and swollen this morning when she got up, but throughout the day the arm improved and her anterior arm by her biceps is still sore and swollen. She states nurses at the custodial evaluated her and thought maybe she could havea blood clot and the doctor wanted her sent to the ER for this tonight at 11 PM on Wednesday night. Patient states she is feeling a little short of breath more so than usual the last couple days, when she gets her usual COPD breathing treatments it is a lot better, she had 1 before she got here and so her breathing is good right now. No more coughing than usual. She has had a bit ofa sore throat that hurts when she swallows but not severe. Her neck is not stiff. She denies any fevers, chills, confusion, focal neurologic symptoms, recent IV in the left upper arm or injury to it, or recent immobilization. She denies any pain or swelling in her legs. She is on clopidogrel no anticoagulation and no history of DVT or PE that she knows of. [facility] Medical History Muscle ache of extremity Sinusitis Anxiety Pancreatitis On home oxygen therapy Coronary artery disease Chronic constipation Insomnia Endotracheally intubated Bilateral pneumonia MARK treated with BiPAP Morbid obesity Diastolic CHF Chest pain Obesity Chronic back pain Anxiety and depression Anemia Thyroid nodule Hepatitis Former smoker Psoriasis Smoking greater than 40 pack years HLD (hyperlipidemia) Back pain Asthma with COPD Type 2 diabetes mellitus Hypertension Atherosclerotic heart disease of [place] coronary artery without angina pectoris Chronic respiratory failure COPD (chronic obstructive pulmonary disease) Home Medications ?Medication ?Instructions ?Recorded ?Last Taken ?Type Handicap Placard #1 ea 12/12/20 Unknown Rx bisacodyl 5 mg tablet,delayed 5 mg PO QHS PRN constipa tion 30 11/13/21 Unknown Rx release (Dulcolax (bisacodyl)) days #30 tabs pen needle, diabetic 32 gauge x #50 ea 02/11/22 Unknow n Rx " blood sugar diagnostic (True #100 ea 09/11/22 Unknown Rx Metrix Glucose Test Strip) blood-glucose meter (True Metrix #1 ea 09/11/22 Unknow n Rx Glucose Meter) albuterol sulfate 90 mcg/actuation 2 puff inhalation Q 6H PRN 11/06/22 Unknown Rx aerosol inhaler shortness of breath or wheez ing #18 grams ipratropium 0.5 mg-albuterol 3 mg 3 ml inhalation Q4H PRN PRN SOB 11/10/22 Unknown Rx (2.5 mg base)/3 mL nebulization &/OR WHEEZING #180 mL soln cane #1 ea 11/16/22 Unknown Rx citalopram 40 mg tablet 40 mg PO QHS depression #90 tabs 11/16/22 Unknown Rx isosorbide mononitrate 60 mg 60 mg PO DAILY BP #90 tab s 12/26/22 Unknown Rx tablet,extended release 24 hr nitroglycerin 0.4 mg sublingual 0.4 mg sublingual Q5-1 5M PRN Pain 12/26/22 Unknown Rx tablet #30 tabs flash glucose sensor (FreeStyle #2 ea 01/06/23 Unknown Rx Tanika 2 Sensor kit) atorvastatin 80 mg tablet 80 mg PO QHS cholesterol Unknown History clopidogrel 75 mg tablet 75 mg PO DAILY blood thinner 01/26/23 Unknown History metoprolol tartrate 25 mg tablet 12.5 mg PO BID blood pressure 01/26/23 Unknown History flash glucose scanning reader #1 ea 03/23/23 Unknown R x (FreeStyle Tan[place] 2 [place]) pantoprazole 40 mg tablet,delayed 40 mg PO BID stomach #180 tabs 05/20/23 Unknown Rx release dextrose 40 % oral gel (Glucose 10 g PO Q15M PRN hypog lycemia 07/23/23 Unknown History Gel) budesonide 1 mg/2 mL suspension 0.5 mg inhalation BID breathing 08/13/23 Unknown History for nebulization potassium chloride 20 mEq 20 meq PO BID supplement Unknown History tablet,extended release insulin lispro 100 unit/mL See Protocol subcut ACHS #0 mL 08/26/23 Unknown Rx subcutaneous pen (Humalog KwikPen (U-100) Insulin) dulaglutide 0.75 mg/0.5 mL 0.75 mg subcut QWEEK Unknown History subcutaneous pen injector fluticasone propionate 50 1 spray intranasal Q12H PRN 12/18/23 Unknown History mcg/actuation nasal allergy symptoms spray,suspension (Allergy Relief (fluticasone)) insulin glargine 100 unit/mL (3 30 unit subcut QHS becky betic 12/18/23 Unknown History mL) subcutaneous pen (Basaglar managment KwikPen U-100 Insulin) tizanidine 2 mg capsule (Zanaflex) 2 mg PO Q8H PRN mus jeffery spasticity 12/18/23 Unknown History ondansetron 4 mg disintegrating 4 mg PO Q8H PRN PRN Na usea #10 tabs 12/28/23 Unknown Rx tablet losartan 50 mg tablet 50 mg PO QDAY 04/25/24 Unkno wn History acetaminophen 500 mg tablet 1,000 mg PO Q8 PRN pain Unknown History insulin lispro 100 unit/mL 5 unit subcut 1700 06/04/24 Unknown History subcutaneous pen (Humalog KwikPen (U-100) Insulin) insulin lispro 100 unit/mL 15 unit subcut QHS diabetes 06/04/24 Unknown History subcutaneous pen (Humalog KwikPen (U-100) Insulin) montelukast 10 mg tablet 10 mg PO QHS #7 tabs 4 Unknown Rx (Singulair) furosemide 40 mg tablet (Lasix) 40 mg PO QAM 08/24/24 Unknown History prednisone 2.5 mg tablet 2.5 mg PO QDAY 08/24/24 Unkn own History lidocaine 5 % topical 1 patch topical DAILY PRN pa in #60 09/01/24 Unknown Rx patch-adhesive silicone combo pack ea alprazolam 0.25 mg tablet 0.25 mg PO QHS PRN anxiety # 30 tabs 10/27/24 Unknown Rx linaclotide 290 mcg capsule 290 mcg PO QAM #90 caps Unknown Rx polyethylene glycol 3350 17 17 g PO QDAY #850 grams Unknown Rx gram/dose oral powder (Miralax) Allergy/AdvReac Type Severity Reaction Status Date / Time Iodinated Contrast Media Allergy Severe Anaphylaxis Verified 12/23/24 23:16 amoxicillin (Amoxicillin) Allergy Intermediate Rash Verified 12/23/24 23:16 hydrocodone Allergy Intermediate SWELLING Verified 12/23/24 23:16 gabapentin (From Neurontin) Allergy Shortness Verified 12/23/24 23:16 of breath levofloxacin (From Levaquin) Allergy Hives Verified 12/23/24 23:16 pseudoephedrine HCl (From Allergy Shortness Verified 12/23/24 23:16 Sudafed) of breath red dye Allergy Hives Verified 12/23/24 23:16 prednisone AdvReac Severe mean mood Verified 12/23/24 23:16 clonazepam (From Klonopin) AdvReac Depression Verified 12/23/24 23:16 codeine AdvReac HEADACHE Verified 12/23/24 23:16 Family History Brother Heart disease Mother Colon cancer Heart disease Surgical History History of coronary artery stent placement History of left heart catheterization (LHC) (~09/23/20) History of cholecystectomy Stented coronary artery (12/28/18) Social History Smoking Status: Former smoker pack-years: 40 how long ago did patient quit smokin year ago alcohol intake: never substance use type: does not use caffeine: Yes Type: carbonated beverages and tea what type of physical activity do you participate in: none ROS ROS ED Constitutional Constitutional ED: Denies chills or fever(s) Eyes Eyes: Denies change in vision or diplopia ENT ENT ED: Reports sore throat; Denies rhinorrhea Cardiovascular Cardiovascular: Denies chest pain, leg edema, lightheadedness, palpitations or syncope Respiratory/Chest Respiratory/Chest: Reports dyspnea, wheezing and other Details: Chronic orthopnea no worse than usual ; Denies cough Gastrointestinal Gastrointestinal: Denies abdominal pain, diarrhea, nausea or vomiting Genitourinary Genitourinary ED: Denies dysuria or hematuria Musculoskeletal Musculoskeletal: Reports neck pain and other Details: Left neck and upper extremity edema see HPI ; Denies back pain Integumentary Denies abscess or rash Neurologic Neurologic: Denies headache(s), paresthesias or weakness Psychiatric Psychiatric: Denies suicidal thoughts EXAM Physical Exam Const Vital Signs: 12/23/24 23:16 12/23/24 23:21 Temperature 97.9 F Temperature Source Oral Pulse Rate 67 Respiratory Rate 20 H Respiratory Effort Normal Non-Labored Respiratory Pattern Tachypnea Blood Pressure 126/93 H Blood Pressure Mean 104 Pulse Ox 96 Oxygen Delivery Method Room Air Positive well nourished, well developed and obese General Appearance ED: well developed and NAD Nutritional Appearance: obese HEENT Reports moist mucous membranes HEENT Narrative: Posterior oropharynx with mild erythema no exudates or asymmetry or trismus normocephalic and atraumatic Eyes PERRL and EOMs intact bilaterally Neck full ROM and supple Neck Narrative: Patient has cushingoid prominence of her neck on both sides, at the base of the scalenes, the left is more prominent, soft, there is no superficial tenderness or skin abnormality/abscess, but with deeper palpation she has tenderness and possibly some palpable inflamed cervical lymph nodes as well as some left submandibular tender lymphadenopathy. No other lymphadenopathy. Resp normal respiratory effort and clear to auscultation bilaterally Resp Narrative: Diminished throughout clear. Conversive in full sentences. Cardio regular rate, regular rhythm and no murmurs GI non-tender and non-distended Auscultation: normoactive bowel sounds Palpation: soft Back/Spine no CVA tenderness General Back: other FROM Extremity normal to inspection Extremity Narrative: There is a mild nonspecific macular blanching rash just present on the left upper arm laterally present no tenderness. No bullae or petechiae. There is some tenderness in the anterior aspect of the left upper arm, there is no gross deformity. There may be some very mild edema in his local area but nothing throughout the left upper extremity otherwise. 2+/4 radial pulses bilaterally. No tenderness to the shoulder or the volar elbow. There does not appear to be abulge in the biceps to suggest acute biceps muscle pathology. There is no fluctuance or abscess. No induration General Extremety ED: Yes tenderness; Negative for edema or pulses abnormal General Extremity: Negative for edema or pulses abnormal Neuro oriented x3, CN's II-XII intact bilaterally and no sensory deficits noted Sensorium / Orientation: awake and alert Motor Exam: strength 5/5 throughout Psych mental status grossly normal Skin no wounds Skin Narrative: Minor macular rash left upper arm only see above MDM MDM MDM Narrative Medical decision making narrative: Given the patient's dyspnea, it does sound like her COPD, but I obtained a chestx-ray to evaluate for pneumonia and EKG to evaluate for acute coronary syndrome. EKG is normal in my interpretation and a two-view chest x-ray on my interpretation shows chronic abnormalities in the lungs and cardiomegaly but no acute CHF or pneumonia. Radiology in agreement. I think her neck edema may be due to lymphadenopathy this may or may not be related to her sore throat and so we sent a strep test which was negative. Therefore more consistent with viral syndrome. The edema in her arm is of unknown significance. She presents when vascular ultrasound is not an available test. I offered a D-dimer given her lowrisk for an upper extremity DVT and unlikelihood of that being the case here, but she states she does not want to wait for a blood test. She was okay coming back either tomorrow morning or Wednesday morning for an upper extremity ultrasoundwhich I am scheduling her for as an outpatient. She is comfortable with this plan going back to the custodial. Lab Data Attestation: I reviewed the patient's lab results. (neg strept test) Radiography Diagnostic Testing: Clinical Impression(s) from Imaging Studies Chest X-Ray 12/23/24 23:42 IMPRESSION: NO ACUTE FINDINGS. [facility] R[facility] Rhythm Strip: Sinus Rhythm Rate: 65 Ectopy: None EKG Initial EKG: Attestation: I personally reviewed and interpreted this EKG as follows: Interpretation: Sinus Rhythm and No Acute Injury Pattern Comments: Nml axis & intervals; nml EKG Discharge Plan Triage Chief Complaint: Edema ED Provider: Deon Rodriguez Dx/Rx/DC Orders Clinical Impression: Left upper extremity swelling, Acute viral pharyngitis, Acute exacerbation of COPD with asthma, Anterior cervical adenopathy Instructions: Lymphadenopathy, ED Peripheral Edema, Unilateral Prescriptions: No Action (DME) Handicap Placard See Rx Instructions .ROUTE .MEDSUPPLY Qty: 1 0RF Rx Instructions: As directed, length of time 3 years citalopram 40 mg tablet 40 mg PO QHS Qty: 90 3RF (DME) cane Device See Rx Instructions .Route Qty: 1 0RF Rx Instructions: As directed pantoprazole 40 mg tablet,delayed release (DR/EC) 40 mg PO BID Qty: 180 2RF dextrose [Glucose Gel] 40 % gel 10 g PO Q15M PRN (Reason: hypoglycemia) Rx Instructions: until symptoms of low blood sugar are controlled budesonide 1 mg/2 mL suspension for nebulization 0.5 mg inhalation BID insulin glargine [Basaglar KwikPen U-100 Insulin] 100 unit/mL (3 mL) insulin pen 30 unit subcut QHS Rx Instructions: daily at bedtime losartan 50 mg tablet 50 mg PO QDAY fluticasone propionate [Allergy Relief (fluticasone)] 50 mcg/actuation spray,suspension 1 spray intranasal Q12H PRN (Reason: allergy symptoms) Rx Instructions: administer into each nostril dulaglutide 0.75 mg/0.5 mL pen injector 0.75 mg subcut QWEEK tizanidine [Zanaflex] 2 mg capsule 2 mg PO Q8H PRN (Reason: muscle spasticity) furosemide [Lasix] 40 mg tablet 40 mg PO QAM prednisone 2.5 mg tablet 2.5 mg PO QDAY lidocaine-silicone, adhesive 5 % combo pack 1 patch topical DAILY PRN (Reason: pain) Qty: 60 1RF Rx Instructions: leave on most painful area for up to 12 hrs linaclotide 290 mcg capsule 290 mcg PO QAM Qty: 90 3RF isosorbide mononitrate 60 mg tablet extended release 24 hr 60 mg PO DAILY Qty: 90 3RF nitroglycerin 0.4 mg tablet, sublingual 0.4 mg SUBLINGUAL Q5-15M PRN (Reason: Pain) Qty: 30 0RF atorvastatin 80 mg tablet 80 mg PO QHS clopidogrel 75 mg tablet 75 mg PO DAILY metoprolol tartrate 25 mg tablet 12.5 mg PO BID Rx Instructions: potassium chloride 20 mEq tablet extended release 20 meq PO BID insulin lispro [Humalog KwikPen Insulin] 100 unit/mL Insulin Pen See Protocol subcut ACHS Qty: 0 0RF Protocol: 5. Sliding Scale Insulin High Dosing Condition: 150-209 mg/dl = 3 units Condition: 210-259 mg/dl = 6 units Condition: 260-324 mg/dl = 9 units Condition: 325-374 mg/dl = 12 units Condition: 375-409 mg/dl = 14 units Condition: 410-449 mg/dl = 16 units Condition: Greater than 449 call physician Protocol Text: - Use for Total Daily Dose of Insulin 81-120 units - Very insulin resistant or septic patients HIGH DOSING ALGORITHM acetaminophen 500 mg Tablet 1,000 mg PO Q8 PRN (Reason: pain) insulin lispro [Humalog KwikPen Insulin] 100 unit/mL Insulin Pen 15 unit subcut QHS Protocol: 4. Sliding Scale Insulin High-Med Dosing Condition: 150-199 mg/dl = 2 units Condition: 200-259 mg/dl = 4 units Condition: 260-324 mg/dl = 6 units Condition: 325-374 mg/dl = 8 units Condition: 375-409 mg/dl = 10 units Condition: 410-449 mg/dl = 11 units Condition: Greater than 449 call physician Protocol Text: - Use for Total Daily Dose of Insulin 56-80 units - Patient who are insulin resistant or septic HIGH MEDIUM DOSING ALGORITHM insulin lispro [Humalog KwikPen Insulin] 100 unit/mL Insulin Pen 5 unit subcut 1700 ondansetron 4 mg tablet,disintegrating 4 mg PO Q8H PRN PRN (Reason: Nausea) Qty: 10 0RF montelukast [Singulair] 10 mg tablet 10 mg PO QHS Qty: 7 0RF bisacodyl [Dulcolax (bisacodyl)] 5 mg tablet,delayed release (DR/EC) 5 mg PO QHS PRN (Reason: constipation) 30 Days Qty: 30 3RF (DME) pen needle, diabetic 32 gauge x 5/32" needle See Rx Instructions .ROUTE .MEDSUPPLY Qty: 50 0RF Rx Instructions: 4x/day (DME) blood-glucose meter [True Metrix Glucose Meter] Replaced By [facility] See Rx Instructions .Route Qty: 1 0RF Rx Instructions: As directed (DME) True Metrix Glucose Test Strip Strip See Rx Instructions .Route Qty: 100 7RF Rx Instructions: tid albuterol sulfate 90 mcg/actuation HFA aerosol inhaler 2 puff INHALATION Q6H PRN (Reason: shortness of breath or wheezing) Qty: 18 3RF ipratropium-albuterol 0.5 mg-3 mg(2.5 mg base)/3 mL solution for nebulization 3 ml INHALATION Q4H PRN PRN (Reason: SOB &/OR WHEEZING) Qty: 180 6RF (DME) FreeStyle Tanika 2 Sensor Kit See Rx Instructions .ROUTE .MEDSUPPLY Qty: 2 3RF Rx Instructions: As directed (DME) FreeStyle Tanika 2 [place] Misc See Rx Instructions .ROUTE .MEDSUPPLY Qty: 1 0RF Rx Instructions: As directed alprazolam 0.25 mg tablet 0.25 mg PO QHS PRN (Reason: anxiety) Qty: 30 3RF polyethylene glycol 3350 [Miralax] 17 gram/dose powder 17 g PO QDAY Qty: 850 3RF Other Ambulatory Orders: Venous Duplex US, Unilateral (Stat) Facility: [facility] - Location: [facility] Ordered By: Dr. Deon Rodriguez Primary Care Provider: Billy Madera Referrals: Billy Madera MD [Primary Care Provider] - Print Language: Persian Disposition Disposition: Home, Self Care What to do if you have Problems For any increased pain, shortness of breath, bleeding, nausea or vomiting, chestpain, or any unexpected problems, contact your Primary Care Provider. Call [facility] ([phone]) or report to the closest Emergency Room. Call 911 if necessary. 12/24/24 0030 <Electronically signed by Deon Rodriguez MD> Cosigner Signature (if applicable): CC: Dr. Billy Madera MD ~ Signed [facility] Work Phone: 1(523) 665-874805-18-2025 Radiology Diagnostic study [facility]04-28-2025 Evaluation note* Diagnosis Onset Date Resolution Status Admit Date Anxiety and depression chronic Ap ril 2024 3:03pm Hypertension chronic December 04, 2024 3:03pm Irritable bowel syndrome wit h constipation chronic December 04, 2024 3:03pm Type 2 diabetes mellitus chronic December 04, 2024 3:03pm Neck swelling acute January 05, 2 025 1:14pm Supraclavicular adenopathy acute January 05, 2025 1:14pm Asthma with COPD chronic February 1:46pm Chronic respiratory failure chronic February 08, 2025 1:46pm Smoking greater than 40 pack years chronic February 08, 2025 1 :46pm Muscle ache of extremity acute February 12, 2025 12:46pm Neck swelling acute February 12, 2 025 12:46pm [facility] Work Phone: 1(975) 151-198804-28-2025 Evaluation note* Diagnosis Onset Date Resolution Status Admit Date Anxiety and depression chronic Ap ril 2024 3:03pm Hypertension chronic December 04, 2024 3:03pm Irritable bowel syndrome wit h constipation chronic December 04, 2024 3:03pm Type 2 diabetes mellitus chronic December 04, 2024 3:03pm Neck swelling acute January 05, 2 025 1:14pm Supraclavicular adenopathy acute January 05, 2025 1:14pm Asthma with COPD chronic February 1:46pm Chronic respiratory failure chronic February 08, 2025 1:46pm Smoking greater than 40 pack years chronic February 08, 2025 1 :46pm Muscle ache of extremity acute February 12, 2025 12:46pm Neck swelling acute February 12, 2 025 12:46pm Neck swelling acute March 08, 2025 2:21pm GERD (gastroesophageal reflu x disease) chronic March 08, 2025 2:21pm Hypertension chronic March 08, 2 025 2:21pm Type 2 diabetes mellitus chronic March 08, 2025 2:21pm [facility] Work Phone: 1([phone]) 782-841604-28-2025 Evaluation note* Diagnosis Onset Date Resolution Status Admit Date Anxiety and depression chronic Ap ril 2024 3:03pm Hypertension chronic December 04, 2024 3:03pm Irritable bowel syndrome wit h constipation chronic December 04, 2024 3:03pm Type 2 diabetes mellitus chronic December 04, 2024 3:03pm Neck swelling acute January 05, 2 025 1:14pm Supraclavicular adenopathy acute January 05, 2025 1:14pm Asthma with COPD chronic February 1:46pm Chronic respiratory failure chronic February 08, 2025 1:46pm Smoking greater than 40 pack years chronic February 08, 2025 1 :46pm Muscle ache of extremity acute February 12, 2025 12:46pm Neck swelling acute February 12, 2 025 12:46pm Neck swelling acute March 08, 2025 2:21pm GERD (gastroesophageal reflu x disease) chronic March 08, 2025 2:21pm Hypertension chronic March 08, 2 025 2:21pm Type 2 diabetes mellitus chronic March 08, 2025 2:21pm Vulvar abscess acute March 12:41pm [facility] Work Phone: [phone] Evaluation note* Diagnosis Onset Date Resolution Status Admit Date Muscle ache of extremity acute October 19, 2024 12:23pm Sore throat acute October 19, 2 025 12:23pm Irritable bowel syndrome wit h constipation chronic October 19, 2024 12:23pm Anxiety and depression chronic Ap ril 2024 3:03pm Hypertension chronic December 04, 2024 3:03pm Irritable bowel syndrome wit h constipation chronic December 04, 2024 3:03pm Type 2 diabetes mellitus chronic December 04, 2024 3:03pm Neck swelling acute January 05, 2 025 1:14pm [facility] Work Phone: [phone] Evaluation note* Diagnosis Onset Date Resolution Status Admit Date Muscle ache of extremity acute October 19, 2024 12:23pm Sore throat acute October 19, 2 025 12:23pm Irritable bowel syndrome wit h constipation chronic October 19, 2024 12:23pm Anxiety and depression chronic Ap ril 2024 3:03pm Hypertension chronic December 04, 2024 3:03pm Irritable bowel syndrome wit h constipation chronic December 04, 2024 3:03pm Type 2 diabetes mellitus chronic December 04, 2024 3:03pm Neck swelling acute January 05, 2 025 1:14pm Supraclavicular adenopathy acute January 05, 2025 1:14pm [facility] Work Phone: 1(173) 917-295503-13-2025 Evaluation note* Diagnosis Onset Date Resolution Status Admit Date Muscle ache of extremity acute October 19, 2024 12:23pm Sore throat acute October 19, 2 025 12:23pm Irritable bowel syndrome wit h constipation chronic October 19, 2024 12:23pm Anxiety and depression chronic Ap ril 2024 3:03pm Hypertension chronic December 04, 2024 3:03pm Irritable bowel syndrome wit h constipation chronic December 04, 2024 3:03pm Type 2 diabetes mellitus chronic December 04, 2024 3:03pm Neck swelling acute January 05, 2 025 1:14pm Supraclavicular adenopathy acute January 05, 2025 1:14pm Asthma with COPD chronic February 1:46pm Chronic respiratory failure chronic February 08, 2025 1:46pm Smoking greater than 40 pack years chronic February 08, 2025 1 :46pm [facility] Work Phone: [phone] Evaluation note* Diagnosis Onset Date Resolution Status Admit Date Muscle ache of extremity acute October 19, 2024 12:23pm Sore throat acute October 19, 2 025 12:23pm Irritable bowel syndrome wit h constipation chronic October 19, 2024 12:23pm Anxiety and depression chronic Ap ril 2024 3:03pm Hypertension chronic December 04, 2024 3:03pm Irritable bowel syndrome wit h constipation chronic December 04, 2024 3:03pm Type 2 diabetes mellitus chronic December 04, 2024 3:03pm Neck swelling acute January 05, 2 025 1:14pm Supraclavicular adenopathy acute January 05, 2025 1:14pm Asthma with COPD chronic February 1:46pm Chronic respiratory failure chronic February 08, 2025 1:46pm Smoking greater than 40 pack years chronic February 08, 2025 1 :46pm Muscle ache of extremity acute February 12, 2025 12:46pm Neck swelling acute February 12, 2 025 12:46pm [facility] Work Phone: 1([phone]) 140-357601-24-2025 Evaluation note* Diagnosis Onset Date Resolution Status Admit Date Acute exacerbation of chroni c obstructive pulmonary disease acute [facility] 2024 2:24pm Muscle ache of extremity acute September 01, 2024 2:24pm Anxiety and depression chronic [facility] 2024 2:24pm Hypertension chronic August 2:24pm Insomnia chronic September 01, 2024 2:24pm Type 2 diabetes mellitus chronic September 01, 2024 2:24pm Muscle ache of extremity acute October 19, 2024 12:23pm Sore throat acute October 19, 2 025 12:23pm Irritable bowel syndrome wit h constipation chronic October 19, 2024 12:23pm Anxiety and depression chronic [facility] 2024 3:03pm Hypertension chronic December 04, 2024 3:03pm Irritable bowel syndrome wit h constipation chronic December 04, 2024 3:03pm Type 2 diabetes mellitus chronic December 04, 2024 3:03pm [facility] Work Phone: 1([phone]) 627-175711-25-2024 Evaluation note* Diagnosis Onset Date Resolution Status Admit Date Atherosclerosis of coronary artery acute July 03, 2 024 2:00pm Cardiopulmonary arrest with successful resuscitation acute [facility] 2023 2:00pm Chronic respiratory failure chronic July 03, 2024 2:00pm Acute exacerbation of chroni c obstructive pulmonary disease acute [facility] 2024 1:00pm Sinusitis acute August 14 2 025 1:00pm Chronic hypoxemic respirator y failure chronic August 14 1:00pm Asthma with COPD chronic August 24, 2024 2:48pm Chronic respiratory failure chronic August 24, 2024 2:48pm Smoking greater than 40 pack years chronic August 24 2:48pm Acute exacerbation of chroni c obstructive pulmonary disease acute [facility] 2024 2:24pm Muscle ache of extremity acute September 01, 2024 2:24pm Anxiety and depression chronic [facility] 2024 2:24pm Hypertension chronic August 2:24pm Insomnia chronic September 01, 2024 2:24pm Type 2 diabetes mellitus chronic September 01, 2024 2:24pm Irritable bowel syndrome wit h constipation acute October 19, 2024 12:23pm Muscle ache of extremity acute October 19, 2024 12:23pm Sore throat acute October 19, 2 025 12:23pm [facility] Work Phone: 1([phone]) 415-576506-03-2024 Instructions* Patient Instructions* Fidelia Vásquez MD - 01/10/2024 2:25 PM EDT We shall follow up after receiving the investigations [facility] History of Present illness Narrative* Fidelia Vásquez MD - 01/10/2024 1:53 PM EDT [facility] Initial Clinic Visit Note NAME: Jeanna Vargas PCP: Mike Richard MD Requesting Provider: Brittney Gonzalez MD My final recommendations will be communicated [...] She also reports going to ENT at [facility], reports endoscopy (possibly laryngoscopy) was done followed by US thyroid showing thyroid nodules Patient also had a barium swallow done None of these reports are available to us at the time of encounter. Request sent [facility] to share records She also reports having PE, ater which she underwent CT with contrast due to which she sustained cardiac arrest and was revived after 14 mins of CPR PAST MEDICAL HISTORY Diagnosis Date COPD (chronic obstructive pulmonary disease) ([facility]) MD (muscular dystrophy) ([facility]) OCD (obsessive compulsive disorder) Oxygen dependent pt [...] Thyroid ultrasound: imaging report not received yet C-[id number] (barium swallow) with fluoroscopy: 11/02/2023 Reason for exam: Female, 73 years old. Dysphagia, unspecified Technique: 22 views of esophagus were obtained following swallowing of barium Fluoroscopy time (applied): (35 seconds) minutes/seconds. 23.67 mGy Comparison: None Findings: There is no demonstrated esophageal foreign body. 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 Normal gastroesophageal junction, without a demonstrated hiatal hernia. The patient ingested a12 mm tablet of barium without any difficulty. [...] one year, progressively worsening. She has dysphagia. Surgerymight be an option for her to relieve [...] any issues of the esophagus in mid anddistal part. Will await thyroid ultrasound report Medical Decision Making: Problems: Moderate: New problem with uncertain prognosis Data: Unique source(s) for external note(s) reviewed: 1 Unique test result(s) reviewed: 3+ Independent interpretation of test from other physician/QHCP Risk: High: Decision on elective major surgery w/ risk factors Medical Decision Making Level: 5 - High Fidelia Vásquez MD Endocrinology Associate Staff [facility] Specialty & Surgery [facility] Endocrinology and Metabolism [place] [phone] documented in this encounterFostoria City [facility]05-01-[facility]24 Discharge summary Author Serg Barnes [facility] December 08, 2023 6:12pm Note Date/Time December 08, 2023 2:51pm [facility] Medical Records Department [address] [place] [address] Emergency Department Summary 12/08/23 MR#: [id number] Acct: [id number] Name: JEANNA VARGAS Rep #:[id number] : 1950 73 From: Serg Barnes MD PCP: Brittney Gonzalez MD Status:REG ER Location: ED HPI HPI - GI History of Present Illness Chief Complaint: Complaint Narrative Narrative: 73-year-old female past medical history of chronic respiratory failure/COPD, diabetes, presents from assisted living via EMS with nausea, vomiting, and diarrhea. She relates history that this is a second time she is being treated for a UTI. They started her on Macrobid. Over the last 4 days she has had multiple episodes of nausea, vomiting, and diarrhea. In the last 24 hours she is only vomited once without any blood in her emesis but is having watery stool that is also nonbloody. She also describes epigastric abdominal pain and pain in the left and right lower quadrants. Past surgical history includes cholecystectomy. She denies any exacerbating or alleviating factors. She does have multiple allergies to antibiotics and pain medications. She presents because her nurse at assisted living thought she needed to be evaluated for all the diarrhea that she is having. This is her second treatment with Macrobid. [facility] Medical History Anemia Anxiety and depression Asthma with COPD Atherosclerotic heart disease of [place] coronary artery without angina pectoris Back pain Bilateral pneumonia Chest pain Chronic back pain Chronic respiratory failure COPD (chronic obstructive pulmonary disease) Diastolic CHF Endotracheally intubated Former smoker Hepatitis HLD (hyperlipidemia) Hypertension Morbid obesity Obesity MARK treated with BiPAP Psoriasis Smoking greater than 40 pack years Thyroid nodule Type 2 diabetes mellitus Home Medications Handicap Placard #1 ea 12/12/20 [Rx Last Taken Unknown] bisacodyl 5 mg tablet,delayed release (Dulcolax (bisacodyl)) 5 mg PO QHS PRN constipation 30 days #30 tabs 11/13/21 [Rx Last Taken Unknown] pen needle, diabetic 32 gauge x 32" #50 ea 02/11/22 [Rx Last Taken Unknown] blood sugar diagnostic (True Metrix Glucose Test Strip) #100 ea 09/11/22 [Rx Last Taken Unknown] blood-glucose meter (True Metrix Glucose Meter) #1 ea 09/11/22 [Rx Last Taken Unknown] albuterol sulfate 90 mcg/actuation aerosol inhaler 2 puff inhalation Q6H PRN shortness of breath or wheezing #18 grams 11/06/22 [Rx Last Taken Unknown] ipratropium 0.5 mg-albuterol 3 mg (2.5 mg base)/3 mL nebulization soln 3 ml inhalation Q4H PRN PRN SOB &/OR WHEEZING #180 mL 11/10/22 [Rx Last Taken Unknown] cane #1 ea 11/16/22 [Rx Last Taken Unknown] citalopram 40 mg tablet 40 mg PO QHS depression #90 tabs 11/16/22 [Rx Last Taken Unknown] isosorbide mononitrate 60 mg tablet,extended release 24 hr 60 mg PO DAILY BP #90tabs 12/26/22 [Rx Last Taken Unknown] nitroglycerin 0.4 mg sublingual tablet 0.4 mg sublingual Q5-15M PRN Pain #30 tabs 12/26/22 [Rx Last Taken Unknown] flash glucose sensor ([employer] Tanika 2 Sensor kit) #2 ea 01/06/23 [Rx Last Taken Unknown] atorvastatin 80 mg tablet 80 mg PO QHS cholesterol 01/26/23 [History Last Taken Unknown] clopidogrel 75 mg tablet 75 mg PO DAILY blood thinner 01/26/23 [History Last Taken Unknown] furosemide 20 mg tablet (Lasix) 20 mg PO BID diuretic 01/26/23 [History Last Taken Unknown] metoprolol tartrate 25 mg tablet 12.5 mg PO BID blood pressure 01/26/23 [History Last Taken Unknown] flash glucose scanning reader ([employer] Tanika 2 [place]) #1 ea 03/23/23 [Rx Last Taken Unknown] ondansetron HCl 4 mg tablet 4 mg PO Q6H PRN nausea and vomiting #14 tabs 04/16/23 [Rx Last Taken Unknown] sucralfate 1 gram tablet (Carafate) 1 g PO TID PRN acid reflux #20 tabs 04/16/23[Rx Last Taken Unknown] pantoprazole 40 mg tablet,delayed release 40 mg PO BID stomach #180 tabs 05/20/23 [Rx Last Taken Unknown] acetaminophen 500 mg tablet 1,000 mg (2 x 500 mg) PO Q8 pain 7 days #0 tabs 06/04/23 [Rx Last Taken 08/21/23] insulin lispro 100 unit/mL subcutaneous pen (Humalog KwikPen (U-100) Insulin) 2 - 11 unit subcut ACHS diabetes #0 mL 06/04/23 [Rx Last Taken 08/21/23] losartan 25 mg tablet 50 mg (2 x 25 mg) PO DAILY blood pressure 30 days #0 tabs 06/04/23 [Rx Last Taken Unknown] aluminum-magnesium hydroxide 225 mg-200 mg/5 mL oral suspension 30 ml PO Q4H PRNUPSET STOMACH 07/23/23 [History Last Taken Unknown] buspirone 5 mg tablet 7.5 mg PO TID mental health 07/23/23 [History Last Taken Unknown] dextrose 40 % oral gel (Glucose Gel) 10 g PO Q15M PRN hypoglycemia 07/23/23 [History Last Taken Unknown] guaifenesin 200 mg/5 mL oral liquid 400 mg PO Q4H PRN cough 07/23/23 [History Last Taken Unknown] therapeutic multivitamin 1 tab PO DAILY vitamin 07/23/23 [History Last Taken 08/21/23] budesonide 1 mg/2 mL suspension for nebulization 0.5 mg inhalation BID [id number]/05/24 [History Last Taken Unknown] insulin glargine 100 unit/mL (3 mL) subcutaneous pen (Basaglar KwikPen U-100 Insulin) 32 unit subcut QHS diabetic managment 08/13/23 [History Last Taken 08/21/23] potassium chloride 20 mEq tablet,extended release 20 meq PO BID supplement 08/22/23 [History Last Taken Unknown] prednisone 10 mg tablet 10 mg PO DAILY inflammation 08/22/23 [History Last Taken Unknown] trazodone 50 mg tablet 25 mg PO QHS sleep 08/22/23 [History Last Taken Unknown] cefdinir 300 mg capsule 300 mg PO BID #14 caps 08/26/23 [Rx Last Taken Unknown] insulin lispro 100 unit/mL subcutaneous pen (Humalog KwikPen (U-100) Insulin) 5 unit (0.05 mL) subcut TIDAC #0 mL 08/26/23 [Rx Last Taken Unknown] insulin lispro 100 unit/mL subcutaneous pen (Humalog KwikPen (U-100) Insulin) See Protocol subcut ACHS #0 mL 08/26/23 [Rx Last Taken Unknown] sulfamethoxazole 800 mg-trimethoprim 160 mg tablet (Bactrim DS) 1 tab PO BID #14tabs 12/08/23 [Rx Last Taken Unknown] Allergy/AdvReac Type Severity Reaction Status Date / Time Iodinated Contrast Media Allergy Severe Anaphylaxis Verified 12/08/23 13:44 amoxicillin [Amoxicillin] Allergy Intermediate Rash Verified 12/08/23 13:44 hydrocodone Allergy Intermediate SWELLING Verified 12/08/23 13:44 gabapentin [From Neurontin] Allergy Shortness Verified 12/08/23 13:44 of breath levofloxacin [From Levaquin] Allergy Hives Verified 12/08/23 13:44 pseudoephedrine HCl Allergy Shortness Verified 12/08/23 13:44 [From Sudafed] of breath red dye Allergy Hives Verified 12/08/23 13:44 prednisone AdvReac Severe mean mood Verified 12/08/23 13:44 clonazepam [From Klonopin] AdvReac Depression Verified 12/08/23 13:44 codeine AdvReac HEADACHE Verified 12/08/23 13:44 Family History Brother Heart disease Mother Colon cancer Heart disease Surgical History History of cholecystectomy History of left heart catheterization (LHC) (~09/23/20) Stented coronary artery (12/28/18) Social History Smoking Status: Former smoker pack-years: 40 how long ago did patient quit smokin year ago alcohol intake: never substance use type: does not use caffeine: Yes Type: carbonated beverages and tea what type of physical activity do you participate in: none ROS ROS ED ROS Narrative Constitutional: No fever, no chills. HEENT: No sore throat. No neck pain. No loss of vision. No rhinorrhea. Cardiovascular: No chest pain. No palpitations. No pedal edema. Respiratory: No cough, no shortness of breath. Abdominal: Positive epigastric, and bilateral lower quadrant abdominal pain. Positive nausea and vomiting, 1 episode last 24 hours. Multiple episodes of watery diarrhea. Genitourinary: No dysuria. No hematuria. Musculoskeletal: No myalgias. No arthralgias. Neurologic: No headaches. No dizziness. No lightheadedness. Skin: No rash. No change in color. Psychiatric: No depression. No anxiety. EXAM Physical Exam Narrative Exam Narrative: Afebrile. Vital signs noted. HEENT: Normocephalic. Atraumatic. PERRL, EOMI. Neck soft and supple. No pointtenderness or step off. Cardiovascular: Regular rate and rhythm. No murmurs, rubs, or gallops appreciated. Respiratory: No tachypnea. Diminished breath sounds bilateral bases. Gastrointestinal: Abdomen soft, positive tenderness in epigastrium, bilateral lower quadrants, with normoactive bowel sounds. No rebound or guarding. Neurological: Awake. Alert. Nonfocal, nonlateralizing. Skin: No rash. Normal color. No pallor. Musculoskeletal: No pedal edema. Full range of motion extremities. Const Vital Signs: 12/08/23 13:45 12/08/23 13:45 12/08/23 14:49 Temperature 97.6 F L 97.6 F L 97.6 F L Temperature Source Temporal Temporal Oral Pulse Rate 68 68 64 Respiratory Rate 18 18 20 H Respiratory Pattern Blood Pressure 134/64 H 134/64 H 116/50 L Blood Pressure Mean 87 87 72 Pulse Ox 94 94 99 Oxygen Delivery Method Nasal Cannula Nasal Cannula Nasal Cannula Oxygen Flow Rate (L/min) 4 4 4 12/08/23 15:33 12/08/23 15:35 12/08/23 15:44 Temperature Temperature Source Pulse Rate 66 64 Respiratory Rate 20 H 17 Respiratory Pattern Tachypnea Blood Pressure 109/60 Blood Pressure Mean 76 Pulse Ox 100 93 Oxygen Delivery Method Nasal Cannula Nasal Cannula Oxygen Flow Rate (L/min) 4 4 12/08/23 17:00 Temperature Temperature Source Pulse Rate 65 Respiratory Rate 18 Respiratory Pattern Blood Pressure 113/74 Blood Pressure Mean 87 Pulse Ox 100 Oxygen Delivery Method Nasal Cannula Oxygen Flow Rate (L/min) 4 MDM MDM MDM Narrative Medical decision making narrative: In the differential diagnosis is gastroenteritis versus C. difficile versus obstruction/partial small bowel obstruction versus pancreatitis. Comprehensive workup was pursued. She has multiple allergies to codeine and hydrocodone alongwith anaphylaxis to IV contrast. CT of the abdomen and pelvis will be obtained without contrast. She was bolused normal saline and administered ondansetron for her nausea. I reviewed her laboratory work and she has a leukocytosis of 15.6, but it appears as this is chronic as it has been elevated in the past, hemoglobin stable at 10.1, platelet count normal at 418. Sodium of 132 with chloride 96. She was bolused IV fluids. She has normal anion gap of 6. CO2 30. Glucose is appropriately elevated at 119. LFTs are remarkable for an AST of 11 which I think is nonspecific. Urinalysis is positive for nitrites with greater than 100WBCs. Although there is a small amount of epithelial cells, I do think that shehas continued UTI. CT of the abdomen and pelvis shows no acute process. She does have diverticulosis but no evidence of diverticulitis. She was seen ambulating to the bathroom without difficulty. Urine culture will be sent. She states that she will not take Macrobid because of the side effects such as her nausea, vomiting, and diarrhea. She states she is able to take Bactrim DS. She was given her first dose here in the emergency department and prescription written for the next 7 days. I did discuss with heradmission or observation, but she states she would like to be [facility]. I feel she can be discharged to follow-up with her primary care provider. Return instructions were reviewed. Disposition is discharged in stable condition. History & Record Review Discussion w/independent historian: Patient Additional record(s) reviewed:: Prior labs Lab Data Attestation: I reviewed the patient's lab results. Labs: Laboratory Results - last 24 hr 12/08/23 12/08/23 15:00 15:32 WBC 15.6 H RBC 3.51 L Hgb 10.1 L Hct 32.2 L MCV 91.7 MCH 28.8 MCHC 31.4 L RDW Std Deviation 40.8 RDW Coeff of Malcom 12.2 Plt Count 418 MPV 9.6 Immature Gran % (Auto) 1.000 H Neut % (Auto) 81.5 H Lymph % (Auto) 8.8 L Cooke % (Auto) 6.2 Eos % (Auto) 1.9 Baso % (Auto) 0.6 Absolute Neuts (auto) 12.7 H Absolute Lymphs (auto) 1.37 Nucleated RBC % 0 Sodium 132 L Potassium 4.1 Chloride 96 L Carbon Dioxide 30.0 Anion Gap 6 BUN 10 Creatinine 0.82 Estim Creat Clear Calc 66.91 Est GFR (MDRD) Af Amer 88 Est GFR (MDRD) Non-Af 73 BUN/Creatinine Ratio 12.2 Glucose 119 H Calcium 9.2 Total Bilirubin 0.40 AST 11 L ALT 19 Alkaline Phosphatase 126 H Total Protein 6.8 Albumin 3.2 Globulin 3.6 Albumin/Globulin Ratio 0.9 Lipase 10 L Urine Color Yellow Urine Clarity Clear Urine pH 6.0 Ur Specific Sprague 1.010 Urine Protein 15 H Urine Glucose (UA) Normal Urine Ketones Negative Urine Occult Blood 10 H Urine Nitrite Positive H Urine Bilirubin Negative Urine Urobilinogen Normal Ur Leukocyte Esterase 500 H Urine RBC 0 SEEN Urine WBC >100 SEEN Ur Squamous Epith Cells 5-10 SEEN Urine Bacteria 2+ Urine Mucus 0 SEEN Radiography Diagnostic Testing: Clinical Impression(s) from Imaging Studies Abdomen/Pelvis CT 12/08/23 15:45 IMPRESSION: Stable small hepatic cysts. Status post cholecystectomy. Small to moderate-sized umbilical hernia containing fat. Status post cholecystectomy. Mild dilatation of the common bile duct. Scattered sigmoid diverticulosis. Electronically Signed: Bruce Lubin MD at 16:00 EDT , Discharge Plan Triage Chief Complaint: Complaint ED Provider: Serg Barnes Dx/Rx/DC Orders Clinical Impression: Nausea, vomiting, and diarrhea, UTI (urinary tract infection) Instructions: ED Diarrhea, Unknown Cause, ED Vomiting (Adult), ED UTIs Women Prescriptions: New sulfamethoxazole-trimethoprim [Bactrim DS] 800-160 mg tablet 1 tab PO BID Qty: 14 0RF No Action (DME) Handicap Placard See Rx Instructions .ROUTE .MEDSUPPLY Qty: 1 0RF Rx Instructions: As directed, length of time 3 years citalopram 40 mg tablet 40 mg PO QHS Qty: 90 3RF (DME) cane Device See Rx Instructions .Route Qty: 1 0RF Rx Instructions: As directed pantoprazole 40 mg tablet,delayed release (DR/EC) 40 mg PO BID Qty: 180 2RF therapeutic multivitamin Tablet 1 tab PO DAILY guaifenesin 200 mg/5 mL liquid 400 mg PO Q4H PRN (Reason: cough) dextrose [Glucose Gel] 40 % gel 10 g PO Q15M PRN (Reason: hypoglycemia) Rx Instructions: until symptoms of low blood sugar are controlled buspirone 5 mg tablet 7.5 mg PO TID aluminum-magnesium hydroxide 225-200 mg/5 mL suspension 30 ml PO Q4H PRN (Reason: UPSET STOMACH) budesonide 1 mg/2 mL suspension for nebulization 0.5 mg inhalation BID insulin glargine [Basaglar KwikPen U-100 Insulin] 100 unit/mL (3 mL) insulin pen 32 unit subcut QHS Rx Instructions: daily at bedtime isosorbide mononitrate 60 mg tablet extended release 24 hr 60 mg PO DAILY Qty: 90 3RF nitroglycerin 0.4 mg tablet, sublingual 0.4 mg SUBLINGUAL Q5-15M PRN (Reason: Pain) Qty: 30 0RF atorvastatin 80 mg tablet 80 mg PO QHS clopidogrel 75 mg tablet 75 mg PO DAILY furosemide [Lasix] 20 mg tablet 20 mg PO BID metoprolol tartrate 25 mg tablet 12.5 mg PO BID Rx Instructions: sucralfate [Carafate] 1 gram tablet 1 g PO TID PRN (Reason: acid reflux) Qty: 20 0RF ondansetron HCl 4 mg tablet 4 mg PO Q6H PRN (Reason: nausea and vomiting) Qty: 14 0RF acetaminophen 500 mg Tablet 1,000 mg PO Q8 7 Days Qty: 0 0RF insulin lispro [Humalog KwikPen Insulin] 100 unit/mL Insulin Pen 2 - 11 unit subcut ACHS Qty: 0 0RF Protocol: 4. Sliding Scale Insulin High-Med Dosing Condition: 150-199 mg/dl = 2 units Condition: 200-259 mg/dl = 4 units Condition: 260-324 mg/dl = 6 units Condition: 325-374 mg/dl = 8 units Condition: 375-409 mg/dl = 10 units Condition: 410-449 mg/dl = 11 units Condition: Greater than 449 call physician Protocol Text: - Use for Total Daily Dose of Insulin 56-80 units - Patient who are insulin resistant or septic HIGH MEDIUM DOSING ALGORITHM losartan 25 mg tablet 50 mg PO DAILY 30 Days Qty: 0 0RF prednisone 10 mg tablet 10 mg PO DAILY trazodone 50 mg tablet 25 mg PO QHS potassium chloride 20 mEq tablet extended release 20 meq PO BID insulin lispro [Humalog KwikPen Insulin] 100 unit/mL Insulin Pen 5 unit subcut TIDAC Qty: 0 0RF insulin lispro [Humalog KwikPen Insulin] 100 unit/mL Insulin Pen See Protocol subcut ACHS Qty: 0 0RF Protocol: 5. Sliding Scale Insulin High Dosing Condition: 150-209 mg/dl = 3 units Condition: 210-259 mg/dl = 6 units Condition: 260-324 mg/dl = 9 units Condition: 325-374 mg/dl = 12 units Condition: 375-409 mg/dl = 14 units Condition: 410-449 mg/dl = 16 units Condition: Greater than 449 call physician Protocol Text: - Use for Total Daily Dose of Insulin 81-120 units - Very insulin resistant or septic patients HIGH DOSING ALGORITHM cefdinir 300 mg capsule 300 mg PO BID Qty: 14 0RF bisacodyl [Dulcolax (bisacodyl)] 5 mg tablet,delayed release (DR/EC) 5 mg PO QHS PRN (Reason: constipation) 30 Days Qty: 30 3RF (DME) pen needle, diabetic 32 gauge x 5/32" needle See Rx Instructions .ROUTE .MEDSUPPLY Qty: 50 0RF Rx Instructions: 4x/day (DME) blood-glucose meter [True Metrix Glucose Meter] Mis See Rx Instructions .Route Qty: 1 0RF Rx Instructions: As directed (DME) True Metrix Glucose Test Strip Strip See Rx Instructions .Route Qty: 100 7RF Rx Instructions: tid albuterol sulfate 90 mcg/actuation HFA aerosol inhaler 2 puff INHALATION Q6H PRN (Reason: shortness of breath or wheezing) Qty: 18 3RF ipratropium-albuterol 0.5 mg-3 mg(2.5 mg base)/3 mL solution for nebulization 3 ml INHALATION Q4H PRN PRN (Reason: SOB &/OR WHEEZING) Qty: 180 6RF (DME) FreeStyle Tanika 2 Sensor Kit See Rx Instructions .ROUTE .MEDSUPPLY Qty: 2 3RF Rx Instructions: As directed (DME) FreeStyle Tanika 2 [place] Misc See Rx Instructions .ROUTE .MEDSUPPLY Qty: 1 0RF Rx Instructions: As directed Primary Care Provider: Brittney Gonzalez Referrals: Billy Madera MD [[facility] Staff - Active Staff] - Activity Restrictions/Additional Instructions: Stop the Macrobid and take the Bactrim DS twice a day by mouth for 7 days. It has been called in to the skilled care pharmacy. Disposition Disposition: Home, Self Care What to do if you have Problems For any increased pain, shortness of breath, bleeding, nausea or vomiting, chestpain, or any unexpected problems, contact your Primary Care Provider. Call [facility] ([phone]) or report to the closest Emergency Room. Call 911 if necessary. 12/08/23 1812 <Electronically signed by Serg Barnes MD> Cosigner Signature (if applicable): CC: Brittney Gonzalez MD ~ Signed [facility] Work Phone: [phone] [phone] Discharge summary Author Jorge Hahngreg [facility] August 26, 2023 11:57am Note Date/Time August 26, 2023 1 1:47am [facility] Medical Records Department [address] [place] [address] Transfer to [facility] MR#: [id number] Acct: [id number] Name: JEANNA VARGAS Rep #:[id number] : 1950 73 From: Jorge Lee DO PCP: Dr. Billy Madera MD Status:A DM IN Certification of patient admission REQUIRED AT TIME OF ADMISSION. I CERTIFY THAT POST-HOSPITAL ECF SERVICES ARE REQUIRED TO BE GIVEN ON AN IN-PATIENT BASIS BECAUSE OF THE ABOVE NAMED PATIENT'S NEED FOR LONG TERM CARE ON A CONTINUING BASIS FOR THE CONDITION(S) FOR WHICH HE/SHE WAS RECEIVING IN-PATIENT HOSPITAL SERVICES PRIOR TO HIS/HER TRANSFER TO THE [facility]. 08/26/23 1157<Electronically signed by Jorge Lee DO> Diet Diet Order/Speech Therapy: 08/22/23 11:43 Diet: Cardiac: Calorie-Controlled Food consistency:: Regular Liquid Consistency:: Regular/Thin Dietary Modifications:: Consistent Carbohydrate Sodium Restricted How many daily calories?: 1800 calorie Routine Orders/Code Status O2 Liters per Minute: 4 O2 Frequency: Continuous Therapies Weight Bearing: Full weight bearing Physical Therapy: Eval and Treat Occupational Therapy: Eval and Treat Problem/Diagnosis (1) Chronic hypoxemic respiratory failure: Status: Chronic Code(s): J96.11 - Chronic respiratory failure with hypoxia Plan 1. Left lower lobe community-acquired pneumonia-patient remains on IV meropenemat this time, she will receive aerosol treatments #2 acute RSV infection-patient will be placed on IV corticosteroids, she will remain on aerosol treatments #3 chronic hypoxic respiratory failure-patient is on 4 L of oxygen at baseline, pulse ox will be monitored #4 asthma with COPD-again due to the patient's RSV infection and the presence ofCOPD, I have elected to place her on IV corticosteroids #5 type 2 diabetes-blood sugars will be monitored, sliding scale insulin was given as needed Total clinical time spent by myself addressing the patient's medical issues, reviewing all of her data, and collaborating with patient's care team: 25 minutes Allergies/Procedures Done in Hospital Allergies Iodinated Contrast Media Allergy (Severe, Verified 08/22/23 06:34) Anaphylaxis amoxicillin [Amoxicillin] Allergy (Intermediate, Verified 08/22/23 06:34) Rash hydrocodone Allergy (Intermediate, Verified 08/22/23 06:34) SWELLING gabapentin [From Neurontin] Allergy (Verified 08/22/23 06:34) Shortness of breath levofloxacin [From Levaquin] Allergy (Verified 08/22/23 06:34) Hives is allergic to the red dye in the pill form, states she is fine with the iv form. pseudoephedrine HCl [From Sudafed] Allergy (Verified 08/22/23 06:34) Shortness of breath red dye Allergy (Verified 08/22/23 06:34) Hives prednisone Adverse Reaction (Severe, Verified 08/22/23 06:34) mean mood clonazepam [From Klonopin] Adverse Reaction (Verified 08/22/23 06:34) Depression codeine Adverse Reaction (Verified 08/22/23 06:34) HEADACHE Procedures: None Type of Care/Length of Stay Estimated LOS: More Than 30 Days Type of Care Needed: Intermediate Rehab Potential: None Prognosis: None Additional Orders/Day of Discharge H&P will serve as current which was dated: 08/22/23 Day of Discharge: 08/26/23 Dietary and Speech Recommendations Dietitian Recommendations/Changes: Will continue 1800 calorie/consistent carbohydrate; cardiac/sodium-restricted diet. Fluid restriction as needed per physician given hx of CHF and on lasix. ONS only if PO fails at meals; not indicated at this time. Discharge Plan Admission Admit Date/Time: 08/22/23 10:21 Primary Reason for Your Visit: Pneumonia Attending Provider: Jorge Lee Primary Care Provider: Billy Madera Discharge Orders/Prescriptions Prescriptions: New insulin lispro [Humalog KwikPen Insulin] 100 unit/mL Insulin Pen 5 unit subcut TIDAC Qty: 0 0RF insulin lispro [Humalog KwikPen Insulin] 100 unit/mL Insulin Pen See Protocol subcut ACHS Qty: 0 0RF Protocol: 5. Sliding Scale Insulin High Dosing Condition: 150-209 mg/dl = 3 units Condition: 210-259 mg/dl = 6 units Condition: 260-324 mg/dl = 9 units Condition: 325-374 mg/dl = 12 units Condition: 375-409 mg/dl = 14 units Condition: 410-449 mg/dl = 16 units Condition: Greater than 449 call physician Protocol Text: - Use for Total Daily Dose of Insulin 81-120 units - Very insulin resistant or septic patients HIGH DOSING ALGORITHM cefdinir 300 mg capsule 300 mg PO BID Qty: 14 0RF Continued (DME) Handicap Placard See Rx Instructions .ROUTE .MEDSUPPLY Qty: 1 0RF Rx Instructions: As directed, length of time 3 years citalopram 40 mg tablet 40 mg PO QHS Qty: 90 3RF (DME) cane Device See Rx Instructions .Route Qty: 1 0RF Rx Instructions: As directed pantoprazole 40 mg tablet,delayed release (DR/EC) 40 mg PO BID Qty: 180 2RF therapeutic multivitamin Tablet 1 tab PO DAILY guaifenesin 200 mg/5 mL liquid 400 mg PO Q4H PRN (Reason: cough) dextrose [Glucose Gel] 40 % gel 10 g PO Q15M PRN (Reason: hypoglycemia) Rx Instructions: until symptoms of low blood sugar are controlled buspirone 5 mg tablet 7.5 mg PO TID aluminum-magnesium hydroxide 225-200 mg/5 mL suspension 30 ml PO Q4H PRN (Reason: UPSET STOMACH) budesonide 1 mg/2 mL suspension for nebulization 0.5 mg inhalation BID insulin glargine [Basaglar KwikPen U-100 Insulin] 100 unit/mL (3 mL) insulin pen 32 unit subcut QHS Rx Instructions: daily at bedtime isosorbide mononitrate 60 mg tablet extended release 24 hr 60 mg PO DAILY Qty: 90 3RF nitroglycerin 0.4 mg tablet, sublingual 0.4 mg SUBLINGUAL Q5-15M PRN (Reason: Pain) Qty: 30 0RF atorvastatin 80 mg tablet 80 mg PO QHS clopidogrel 75 mg tablet 75 mg PO DAILY furosemide [Lasix] 20 mg tablet 20 mg PO BID metoprolol tartrate 25 mg tablet 12.5 mg PO BID Rx Instructions: sucralfate [Carafate] 1 gram tablet 1 g PO TID PRN (Reason: acid reflux) Qty: 20 0RF ondansetron HCl 4 mg tablet 4 mg PO Q6H PRN (Reason: nausea and vomiting) Qty: 14 0RF acetaminophen 500 mg Tablet 1,000 mg PO Q8 7 Days Qty: 0 0RF insulin lispro [Humalog KwikPen Insulin] 100 unit/mL Insulin Pen 2 - 11 unit subcut ACHS Qty: 0 0RF Protocol: 4. Sliding Scale Insulin High-Med Dosing Condition: 150-199 mg/dl = 2 units Condition: 200-259 mg/dl = 4 units Condition: 260-324 mg/dl = 6 units Condition: 325-374 mg/dl = 8 units Condition: 375-409 mg/dl = 10 units Condition: 410-449 mg/dl = 11 units Condition: Greater than 449 call physician Protocol Text: - Use for Total Daily Dose of Insulin 56-80 units - Patient who are insulin resistant or septic HIGH MEDIUM DOSING ALGORITHM losartan 25 mg tablet 50 mg PO DAILY 30 Days Qty: 0 0RF prednisone 10 mg tablet 10 mg PO DAILY trazodone 50 mg tablet 25 mg PO QHS potassium chloride 20 mEq tablet extended release 20 meq PO BID bisacodyl [Dulcolax (bisacodyl)] 5 mg tablet,delayed release (DR/EC) 5 mg PO QHS PRN (Reason: constipation) 30 Days Qty: 30 3RF (DME) pen needle, diabetic 32 gauge x 5/32" needle See Rx Instructions .ROUTE .MEDSUPPLY Qty: 50 0RF Rx Instructions: 4x/day (DME) blood-glucose meter [True Metrix Glucose Meter] Misc See Rx Instructions .Route Qty: 1 0RF Rx Instructions: As directed (DME) True Metrix Glucose Test Strip Strip See Rx Instructions .Route Qty: 100 7RF Rx Instructions: tid albuterol sulfate 90 mcg/actuation HFA aerosol inhaler 2 puff INHALATION Q6H PRN (Reason: shortness of breath or wheezing) Qty: 18 3RF ipratropium-albuterol 0.5 mg-3 mg(2.5 mg base)/3 mL solution for nebulization 3 ml INHALATION Q4H PRN PRN (Reason: SOB &/OR WHEEZING) Qty: 180 6RF (DME) FreeStyle Tanika 2 Sensor Kit See Rx Instructions .ROUTE .MEDSUPPLY Qty: 2 3RF Rx Instructions: As directed (DME) FreeStyle Tanika 2 [place] Misc See Rx Instructions .ROUTE .MEDSUPPLY Qty: 1 0RF Rx Instructions: As directed Referrals / Follow Up: Billy Madera MD [Primary Care Provider] - Disposition Disposition (needs filled in before D/C Order can be placed): [facility] 08/26/23 1157 <Electronically signed by Jorge Lee DO> Cosigner Signature (if applicable): CC: Dr. Billy Madera MD ~ [facility] Work Phone: 1(196) 569-581301-17-2024 Progress note Author [facility] August 25, 2023 7:26pm Note Date/Time August 25, 2023 7 :26pm [facility] Medical Records Department [address] [place] [id number] Progress Note - Hospitalist 08/25/231922 MR#: [id number] Acct: [id number] Name: JEANNA VARGAS Rep #:[id number] : 1950 73 From: Jorge Lee DO PCP: Dr. Billy Madera MD Status:A DM IN Location: [place] [address] Reason for Visit Reason for Visit: Diagnoses Other specified viral diseases (08/22/23) Chronic respiratory failure with hypoxia (08/22/23) Subjective Subjective Patient was seen and examined today, her chest x-ray today showed a persistent left lower lobe infiltrate or atelectasis, patient still has scattered expiratory wheezes on auscultation, she does not appear short of breath and is ambulating in the room. Patient is currently on 4 L of oxygen. Objective Data Objective Data Vital Signs: Vital Signs Temp Pulse Resp BP Pulse Ox O2 Del Method O2 Flow Rate 97.7 F L 78 20 H 150/68 H 100 Nasal Cannula 4 08/25/23 14:35 08/25/23 16:33 08/25/23 16:33 08/25/23 14:35 08/25/23 14:35 08/25/23 14:35 08/25/23 14:35 FiO2 100 08/24/23 10:00 Oxygen Flow Rate (L/min) 4 Oxygen Delivery Method Nasal Cannula Weight: 99.7 kg Body Mass Index (BMI) 39.6 Intake & Output: Intake and Output for Last 24 Hours 08/23/23 08/24/23 08/25/23 23:59 23:59 23:59 Intake Total 360 / 600 600 / 600 840 / 840 Balance 360 / 600 600 / 600 840 / 840 Lab / Micro Data 08/23/23 06:00 08/23/23 06:00 Labs: Laboratory Results - last 24 hr 08/24/23 20:39: POC Glucose 209 H 08/25/23 09:01: POC Glucose 201 H 08/25/23 11:30: POC Glucose 272 H 08/25/23 16:57: POC Glucose 141 H Micro: Microbiology 08/22/23 09:17 Blood Culture (Wb) - Anticubital Right Blood Culture - Preliminary No growth in 48 hours. 08/22/23 07:40 Blood Culture (Wb) - Anticubital Right Blood Culture - Preliminary No growth in 48 hours. 08/23/23 18:50 Urine, Clean Catch Legionella Antigen - Final 08/23/23 18:50 Urine, Clean Catch Streptococcus pneumoniae Antigen (M - Final 08/22/23 07:40 Mucosa - Nose SARS-CoV-2, Influenza & RSV (PCR) - Final RSV Radiography Diagnostic Testing: Radiology Impression Chest X-Ray 08/25/23 08:40 IMPRESSION: Persistent left costophrenic angle blunting may be secondary to an effusion and/or pleural thickening associated with left basilar atelectasis and/or pneumonia. Electronically Signed: Kimmy Matta MD at 9:05 EST , Rhythm Strip Rhythm Strip: Sinus Rhythm Rate: 78 Ectopy: PVC(s) Physical Exam Narrative alert, oriented x3 and no apparent distress General Appearance: cooperative, well kempt and well developed Orientation / Consciousness: awake, oriented to person, oriented to place and oriented to time HEENT normocephalic, head/scalp atraumatic, hearing grossly normal bilaterally and moist oral mucous membranes Eyes PERRL, EOMs intact bilaterally and conjunctivae normal Neck supple, no JVD, thyroid normal and no carotid bruits General: trachea midline Resp normal respiratory effort, no retractions and no use of accessory muscles Resp Narrative: Scattered expiratory wheezes are noted bilaterally, inspiratory rales are noted at the left lung base Auscultation: Negative for rales, rhonchi or wheezes Cardio regular rate, regular rhythm, S1 normal heart sound, S2 normal heart sound, no murmurs, no rub and no gallops GI normal to inspection, nondistended, normoactive bowel sounds, soft to palpation,non-tender and non-distended Extremity no clubbing, cyanosis or edema Skin no rashes or lesions noted General Skin Exam: no breakdown Neuro oriented x3, CN's II-XII intact bilaterally, no focal motor deficits and no sensory deficits noted Sensorium / Orientation: awake and alert Speech: speech normal Psych affect normal Assessment & Plan Assessment/Plan (1) Chronic hypoxemic respiratory failure: PLAN: Plan 1. Left lower lobe community-acquired pneumonia-patient remains on IV meropenemat this time, she will receive aerosol treatments #2 acute RSV infection-patient will be placed on IV corticosteroids, she will remain on aerosol treatments #3 chronic hypoxic respiratory failure-patient is on 4 L of oxygen at baseline, pulse ox will be monitored #4 asthma with COPD-again due to the patient's RSV infection and the presence ofCOPD, I have elected to place her on IV corticosteroids #5 type 2 diabetes-blood sugars will be monitored, sliding scale insulin was given as needed Total clinical time spent by myself addressing the patient's medical issues, reviewing all of her data, and collaborating with patient's care team: 25 minutes Capacity Legal Firearms Inspector Reflex Medical hold order details:: IF a medical hold is selected below, a suggested order for a MEDICAL HOLD will reflex upon signing the document. Next of kin: [place] law dictates a PRIORITY LIST for identifying legal decision-maker/legal next of kin in the following order (LNOK): 1st: The patient?s legal guardian, if any 2nd: The patient's spouse (if status is questionable, consult Risk Management) 3rd: The patient?s adult child(louie) (majority, if multiple children) 4th: The patient?s parents 5th: The patient?s adult siblings (majority, if multiple children siblings) Charges/Coding Visit Charges Inpatient E&M: 81201 Subs Hosp L1 08/25/231925 <Electronically signed by Jorge Lee DO> Cosigner Signature (if applicable): CC: ~ Signed [facility] Work Phone: 1(745) 526-456301-17-2024 Progress note Author Jorge Lee [facility] August 25, 2023 7:23pm Note Date/Time August 24, 2023 5 :11pm [facility] Medical Records Department [address] [place] [address] Progress Note - Hospitalist 08/24/23 1711 MR#: [id number] Acct: [id number] Name: JEANNA VARGAS Rep #:[id number] : 1950 73 From: Jorge Lee DO PCP: Dr. Billy Madera MD Status:A DM IN Location: [place] [address] Reason for Visit Reason for Visit: Diagnoses Other specified viral diseases (08/22/23) Chronic respiratory failure with hypoxia (08/22/23) Subjective Subjective Patient was seen and examined today, she still has scattered expiratory wheezes which are mild. Patient's requiring 4 L of oxygen via nasal cannula which is her outpatient oxygen setting. Objective Data Objective Data Vital Signs: Vital Signs Temp Pulse Resp BP Pulse Ox O2 Del Method O2 Flow Rate 98.2 F 71 18 146/64 H 99 Nasal Cannula 4 08/24/23 14:23 08/24/23 14:23 08/24/23 14:23 08/24/23 14:23 08/24/23 14:23 08/24/23 14:23 08/24/23 14:23 FiO2 100 08/24/23 10:00 Oxygen Flow Rate (L/min) 4 Oxygen Delivery Method Nasal Cannula Weight: 99.7 kg Body Mass Index (BMI) 39.6 Intake & Output: Intake and Output for Last 24 Hours 08/22/23 08/23/23 08/24/23 23:59 23:59 23:59 Intake Total 1425 / 1425 360 / 600 480 / 480 Balance 1425 / 1425 360 / 600 480 / 480 Lab / Micro Data 08/23/23 06:00 08/23/23 06:00 Labs: Laboratory Results - last 24 hr 01/15/24 20:09: POC Glucose 266 H 08/24/23 08:47: POC Glucose 204 H 08/24/23 11:25: POC Glucose 243 H 08/24/23 16:38: POC Glucose 238 H Micro: Microbiology 08/22/23 09:17 Blood Culture (Wb) - Anticubital Right Blood Culture - Preliminary No growth in 48 hours. 08/22/23 07:40 Blood Culture (Wb) - Anticubital Right Blood Culture - Preliminary No growth in 48 hours. 08/23/23 18:50 Urine, Clean Catch Legionella Antigen - Final 08/23/23 18:50 Urine, Clean Catch Streptococcus pneumoniae Antigen (M - Final 08/22/23 07:40 Mucosa - Nose SARS-CoV-2, Influenza & RSV (PCR) - Final RSV Rhythm Strip Rhythm Strip: Sinus Rhythm Rate: 78 Ectopy: PVC(s) Physical Exam Narrative alert, oriented x3 and no apparent distress General Appearance: cooperative, well kempt and well developed Orientation / Consciousness: awake, oriented to person, oriented to place and oriented to time HEENT normocephalic, head/scalp atraumatic, hearing grossly normal bilaterally and moist oral mucous membranes Eyes PERRL, EOMs intact bilaterally and conjunctivae normal Neck supple, no JVD, thyroid normal and no carotid bruits General: trachea midline Resp normal respiratory effort, no retractions and no use of accessory muscles Resp Narrative: Scattered expiratory wheezes are noted bilaterally, inspiratory rales are noted at the left lung base Auscultation: Negative for rales, rhonchi or wheezes Cardio regular rate, regular rhythm, S1 normal heart sound, S2 normal heart sound, no murmurs, no rub and no gallops GI normal to inspection, nondistended, normoactive bowel sounds, soft to palpation,non-tender and non-distended Extremity no clubbing, cyanosis or edema Skin no rashes or lesions noted General Skin Exam: no breakdown Neuro oriented x3, CN's II-XII intact bilaterally, no focal motor deficits and no sensory deficits noted Sensorium / Orientation: awake and alert Speech: speech normal Psych affect normal Assessment & Plan Assessment/Plan (1) Chronic hypoxemic respiratory failure: PLAN: Plan 1. Left lower lobe community-acquired pneumonia-patient remains on IV meropenemat this time, she will receive aerosol treatments, I will repeat her chest x- raytomorrow #2 acute RSV infection-patient will be placed on IV corticosteroids, she will remain on aerosol treatments #3 chronic hypoxic respiratory failure-patient is on 4 L of oxygen at baseline, pulse ox will be monitored #4 asthma with COPD-again due to the patient's RSV infection and the presence ofCOPD, I have elected to place her on IV corticosteroids #5 type 2 diabetes-blood sugars will be monitored, sliding scale insulin was given as needed Total clinical time spent by myself addressing the patient's medical issues, reviewing all of her data, and collaborating with patient's care team: 35 minutes Capacity Legal Firearms Inspector Reflex Medical hold order details:: IF a medical hold is selected below, a suggested order for a MEDICAL HOLD will reflex upon signing the document. Next of kin: [place] law dictates a PRIORITY LIST for identifying legal decision-maker/legal next of kin in the following order (LNOK): 1st: The patient?s legal guardian, if any 2nd: The patient's spouse (if status is questionable, consult Risk Management) 3rd: The patient?s adult child(louie) (majority, if multiple children) 4th: The patient?s parents 5th: The patient?s adult siblings (majority, if multiple children siblings) Charges/Coding Visit Charges Inpatient E&M: 27089 Subs Hosp L2 08/25/231922 <Electronically signed by Jorge Lee DO> Cosigner Signature (if applicable): CC: ~ Signed [facility] Work Phone: 1(740) 566-271801-15-2024 Progress note Author [facility] August 23, 2023 9:26pm Note Date/Time August 23, 2023 9 :26pm [facility] Medical Records Department [address] [place] [address] Progress Note - Hospitalist 08/23/232123 MR#: [id number] Acct: [id number] Name: JEANNA VARGAS Rep #:[id number] : 1950 73 From: Jorge Lee DO PCP: Dr. Billy Madera MD Status:A DM IN Location: [place] [address] Reason for Visit Reason for Visit: Diagnoses Other specified viral diseases (08/22/23) Chronic respiratory failure with hypoxia (08/22/23) Subjective Subjective Patient was seen and examined today, her chest x-ray showed no appreciable change from yesterday, patient is on 4 L of nasal cannula oxygen at rest today. Objective Data Objective Data Vital Signs: Vital Signs Temp Pulse Resp BP Pulse Ox O2 Del Method O2 Flow Rate 97.5 F L 84 22 H 151/61 H 98 Nasal Cannula 4 08/23/23 20:07 08/23/23 20:33 08/23/23 20:33 08/23/23 20:16 08/23/23 20:35 08/23/23 20:35 08/23/23 20:35 Oxygen Flow Rate (L/min) 4 Oxygen Delivery Method Nasal Cannula Weight: 99.7 kg Body Mass Index (BMI) 39.6 Intake & Output: Intake and Output for Last 24 Hours 08/21/23 08/22/23 08/23/23 23:59 23:59 23:59 Intake Total 1425 / 1425 360 / 360 Balance 1425 / 1425 360 / 360 Lab / Micro Data 08/23/23 06:00 08/23/23 06:00 Labs: Laboratory Results - last 24 hr 08/23/23 06:00: WBC 12.9 H, RBC 4.16 L, Hgb 11.5 L, Hct 36.0 L, MCV 86.5, MCH 27.6, MCHC 31.9 L, RDW Std Deviation 41.1, RDW Coeff of [place] 12.9, Plt Count 371,MPV 10.3, Immature Gran % (Auto) 0.900, Neut % (Auto) 87.7 H, Lymph % (Auto) 7.7L, [place] % (Auto) 3.5, Eos % (Auto) 0.0, Baso % (Auto) 0.2, Absolute Neuts (auto)11.3 H, Absolute Lymphs (auto) 0.99, Nucleated RBC % 0, Sodium 134 L, Potassium 4.6, Chloride 96 L, Carbon Dioxide 31.0, Anion Gap 7, BUN 11, Creatinine 0.72, Estim Creat Clear Calc 70.18, Est GFR (MDRD) Af Amer 103, Est GFR (MDRD) Non-Af 85, BUN/Creatinine Ratio 15.3, Glucose 199 H, Calcium 9.5 08/23/23 09:48: POC Glucose 214 H 08/23/23 11:49: POC Glucose 271 H 08/23/23 16:39: POC Glucose 169 H 08/23/23 20:09: POC Glucose 266 H Micro: Microbiology 08/23/23 18:50 Urine, Clean Catch Legionella Antigen - Final 08/23/23 18:50 Urine, Clean Catch Streptococcus pneumoniae Antigen (M - Final 08/22/23 07:40 Mucosa - Nose SARS-CoV-2, Influenza & RSV (PCR) - Final RSV Radiography Diagnostic Testing: Radiology Impression Chest X-Ray 08/23/23 04:42 IMPRESSION: Persistent left basilar opacification Electronically Signed: Jorge Mcdonnell MD at 7:57 EST , Rhythm Strip Rhythm Strip: Sinus Rhythm Rate: 78 Ectopy: PVC(s) Physical Exam Narrative alert, oriented x3 and no apparent distress General Appearance: cooperative, well kempt and well developed Orientation / Consciousness: awake, oriented to person, oriented to place and oriented to time HEENT normocephalic, head/scalp atraumatic, hearing grossly normal bilaterally and moist oral mucous membranes Eyes PERRL, EOMs intact bilaterally and conjunctivae normal Neck supple, no JVD, thyroid normal and no carotid bruits General: trachea midline Resp normal respiratory effort, no retractions and no use of accessory muscles Resp Narrative: Scattered expiratory wheezes are noted bilaterally, inspiratory rales are noted at the left lung base Auscultation: Negative for rales, rhonchi or wheezes Cardio regular rate, regular rhythm, S1 normal heart sound, S2 normal heart sound, no murmurs, no rub and no gallops GI normal to inspection, nondistended, normoactive bowel sounds, soft to palpation,non-tender and non-distended Extremity no clubbing, cyanosis or edema Skin no rashes or lesions noted General Skin Exam: no breakdown Neuro oriented x3, CN's II-XII intact bilaterally, no focal motor deficits and no sensory deficits noted Sensorium / Orientation: awake and alert Speech: speech normal Psych affect normal Assessment & Plan Assessment/Plan (1) Chronic hypoxemic respiratory failure: PLAN: Plan 1. Left lower lobe community-acquired pneumonia-patient remains on IV meropenemat this time, she will receive aerosol treatments #2 acute RSV infection-patient will be placed on IV corticosteroids, she will remain on aerosol treatments #3 chronic hypoxic respiratory failure-patient is on 4 L of oxygen at baseline, pulse ox will be monitored #4 asthma with COPD-again due to the patient's RSV infection and the presence ofCOPD, I have elected to place her on IV corticosteroids #5 type 2 diabetes-blood sugars will be monitored, sliding scale insulin was given as needed Total clinical time spent by myself addressing the patient's medical issues, reviewing all of her data, and collaborating with patient's care team: 35 minutes Capacity Legal Firearms Inspector Reflex Medical hold order details:: IF a medical hold is selected below, a suggested order for a MEDICAL HOLD will reflex upon signing the document. Next of kin: [place] law dictates a PRIORITY LIST for identifying legal decision-maker/legal next of kin in the following order (LNOK): 1st: The patient?s legal guardian, if any 2nd: The patient's spouse (if status is questionable, consult Risk Management) 3rd: The patient?s adult child(louie) (majority, if multiple children) 4th: The patient?s parents 5th: The patient?s adult siblings (majority, if multiple children siblings) Charges/Coding Visit Charges Inpatient E&M: 57077 Subs Hosp L2 08/23/232125 <Electronically signed by Jorge Lee DO> Cosigner Signature (if applicable): CC: ~ Signed [facility] Work Phone: 1(336) 504-715301-15-2024 History and physical note Author [facility] August 23, 2023 9:24pm Note Date/Time August 22, 2023 7 :33pm [facility] Medical Records Department [address] [place] [address] H&P Exam - Hospitalist 08/22/231928 MR#: [id number] Acct: [id number] Name: JEANNA VARGAS Rep #:[id number] : 1950 73 From: Jorge Lee DO PCP: Dr. Billy Madera MD Status:A DM IN Location: [facility] [id number]- [id number] HPI - General General Date of Admission: 08/22/23 Date of Service: 08/22/23 Chief Complaint: Shortness of breath HPI Narrative JEANNA VARGAS, is a 73 F who presents to the emergency room at [facility] after being sent in from an extended care facility at which she is receiving rehab services due to increased shortness of breath. Patient states the last couple of days her breathing has become worse, she is on chronic oxygenat the custodial at 4 L. Workup in the emergency room included a CBC which showed an elevated white blood cell count of 13.6, hemoglobin was 11.2, sodium was low at 128, and glucose was 205. Chest x-ray was obtained which showed a left lower lobe infiltrate. Patient was given Zithromax IV in the emergency room, the emergency room physician told me that with the least amount of movement, the patient's pulse ox decreases on her baseline O2. Patient also hadpositive RSV test in the emergency room and was wheezing on auscultation. She received 1 dose of IV corticosteroids Patient will be admitted for left lower lobe pneumonia and RSV infection with hypoxia, I have elected to change her antibiotic coverage to meropenem due to her comorbidities (COPD/asthma/chronic hypoxic respiratory failure), she will receive aerosol treatments and I will place her on IV corticosteroids. Sputum culture will be obtained if possible, urine will be obtained for Legionella and strep antigens. Repeat labs will be obtained in the morning to monitor her white blood cell count and serum sodium. [facility] Medical History Anemia Anxiety and depression Asthma with COPD Atherosclerotic heart disease of [place] coronary artery without angina pectoris Back pain Bilateral pneumonia Chest pain Chronic back pain Chronic respiratory failure COPD (chronic obstructive pulmonary disease) Diastolic CHF Endotracheally intubated Former smoker Hepatitis HLD (hyperlipidemia) Hypertension Morbid obesity Obesity MARK treated with BiPAP Psoriasis Smoking greater than 40 pack years Thyroid nodule Type 2 diabetes mellitus Home Medications Handicap Joshuaard #1 ea 12/12/20 [Rx Last Taken Unknown] bisacodyl 5 mg tablet,delayed release (Dulcolax (bisacodyl)) 5 mg PO QHS PRN constipation 30 days #30 tabs 11/13/21 [Rx Last Taken Unknown] pen needle, diabetic 32 gauge x " #50 ea 02/11/22 [Rx Last Taken Unknown] blood sugar diagnostic (True Metrix Glucose Test Strip) #100 ea 09/11/22 [Rx Last Taken Unknown] blood-glucose meter (True Metrix Glucose Meter) #1 ea 09/11/22 [Rx Last Taken Unknown] albuterol sulfate 90 mcg/actuation aerosol inhaler 2 puff inhalation Q6H PRN shortness of breath or wheezing #18 grams 11/06/22 [Rx Last Taken Unknown] ipratropium 0.5 mg-albuterol 3 mg (2.5 mg base)/3 mL nebulization soln 3 ml inhalation Q4H PRN PRN SOB &/OR WHEEZING #180 mL 11/10/22 [Rx Last Taken Unknown] cane #1 ea 11/16/22 [Rx Last Taken Unknown] citalopram 40 mg tablet 40 mg PO QHS depression #90 tabs 11/16/22 [Rx Last Taken Unknown] isosorbide mononitrate 60 mg tablet,extended release 24 hr 60 mg PO DAILY BP #90tabs 12/26/22 [Rx Last Taken Unknown] nitroglycerin 0.4 mg sublingual tablet 0.4 mg sublingual Q5-15M PRN Pain #30 tabs 12/26/22 [Rx Last Taken Unknown] flash glucose sensor ([employer] Tanika 2 Sensor kit) #2 ea 01/06/23 [Rx Last Taken Unknown] atorvastatin 80 mg tablet 80 mg PO QHS cholesterol 01/26/23 [History Last Taken Unknown] clopidogrel 75 mg tablet 75 mg PO DAILY blood thinner 01/26/23 [History Last Taken Unknown] furosemide 20 mg tablet (Lasix) 20 mg PO BID diuretic 01/26/23 [History Last Taken Unknown] metoprolol tartrate 25 mg tablet 12.5 mg PO BID blood pressure 01/26/23 [History Last Taken Unknown] flash glucose scanning reader ([employer] Tanika 2 [place]) #1 ea 03/23/23 [Rx Last Taken Unknown] ondansetron HCl 4 mg tablet 4 mg PO Q6H PRN nausea and vomiting #14 tabs 04/16/23 [Rx Last Taken Unknown] sucralfate 1 gram tablet (Carafate) 1 g PO TID PRN acid reflux #20 tabs 04/16/23[Rx Last Taken Unknown] pantoprazole 40 mg tablet,delayed release 40 mg PO BID stomach #180 tabs 05/20/23 [Rx Last Taken Unknown] acetaminophen 500 mg tablet 1,000 mg (2 x 500 mg) PO Q8 7 days #0 tabs 06/04/23 [Rx Last Taken 08/21/23] insulin lispro 100 unit/mL subcutaneous pen (Humalog KwikPen (U-100) Insulin) 2 - 11 unit subcut ACHS #0 mL 06/04/23 [Rx Last Taken 08/21/23] losartan 25 mg tablet 50 mg (2 x 25 mg) PO DAILY blood pressure 30 days #0 tabs 06/04/23 [Rx Last Taken Unknown] aluminum-magnesium hydroxide 225 mg-200 mg/5 mL oral suspension 30 ml PO Q4H PRNUPSET STOMACH 07/23/23 [History Last Taken Unknown] buspirone 5 mg tablet 7.5 mg PO TID 07/23/23 [History Last Taken Unknown] dextrose 40 % oral gel (Glucose Gel) 10 g PO Q15M PRN hypoglycemia 07/23/23 [History Last Taken Unknown] guaifenesin 200 mg/5 mL oral liquid 400 mg PO Q4H PRN cough 07/23/23 [History Last Taken Unknown] therapeutic multivitamin 1 tab PO DAILY unknown 07/23/23 [History Last Taken 08/21/23] budesonide 1 mg/2 mL suspension for nebulization 0.5 mg inhalation BID 08/13/23 [History Last Taken Unknown] insulin glargine 100 unit/mL (3 mL) subcutaneous pen (Basaglar KwikPen U-100 Insulin) 32 unit subcut QHS diabetic managment 08/13/23 [History Last Taken 08/21/23] potassium chloride 20 mEq tablet,extended release 20 meq PO BID 08/22/23 [History Last Taken Unknown] prednisone 10 mg tablet 10 mg PO DAILY 08/22/23 [History Last Taken Unknown] trazodone 50 mg tablet 25 mg PO QHS 08/22/23 [History Last Taken Unknown] Allergy/AdvReac Type Severity Reaction Status Date / Time Iodinated Contrast Media Allergy Severe Anaphylaxis Verified 08/22/23 06:34 amoxicillin [Amoxicillin] Allergy Intermediate Rash Verified 08/22/23 06:34 hydrocodone Allergy Intermediate SWELLING Verified 08/22/23 06:34 gabapentin [From Neurontin] Allergy Shortness Verified 08/22/23 06:34 of breath levofloxacin [From Levaquin] Allergy Hives Verified 08/22/23 06:34 pseudoephedrine HCl Allergy Shortness Verified 08/22/23 06:34 [From Sudafed] of breath red dye Allergy Hives Verified 08/22/23 06:34 prednisone AdvReac Severe mean mood Verified 08/22/23 06:34 clonazepam [From Klonopin] AdvReac Depression Verified 08/22/23 06:34 codeine AdvReac HEADACHE Verified 08/22/23 06:34 Family History Brother Heart disease Mother Colon cancer Heart disease Surgical History History of cholecystectomy History of left heart catheterization (LHC) (~09/23/20) Stented coronary artery (12/28/18) Social History Smoking Status: Former smoker pack-years: 40 how long ago did patient quit smokin year ago alcohol intake: never substance use type: does not use caffeine: Yes Type: carbonated beverages and tea what type of physical activity do you participate in: none ROS Constitutional Constitutional: Denies anorexia, change in weight, fever(s), night sweats or weakness Eyes Eyes: Denies blurry vision, change in vision, discharge from eye(s) or eye pain Cardiovascular Cardiovascular: Denies chest pain, claudication, edema or palpitations Respiratory/Chest Respiratory/Chest: Reports cough, dyspnea, shortness of breath at rest and shortness of breath with exertion; Denies hemoptysis Gastrointestinal Gastrointestinal: Denies abdominal pain, constipation, diarrhea, hematemesis, hematochezia, melena, nausea or vomiting Genitourinary Genitourinary: Denies dysuria, hematuria, urinary frequency, urinary hesitancy, urinary incontinence or urinary urgency Musculoskeletal Musculoskeletal: Denies back pain, joint pain, joint stiffness, joint swelling, myalgias or neck pain Neurologic Neurologic: Denies abnormal gait, abnormal speech, dizziness, focal weakness, headache(s), loss of vision, numbness, other visual disturbances, paresthesias, syncope or tingling Psychiatric Psychiatric: Denies anxiety, cognitive impairment, depression, irritability, mood swings or suicidal ideation Endocrine Endocrinology: Denies change in body appearance, cold intolerance, excessive sweating, heat intolerance, polydipsia or polyuria Hematologic/Lymphatic Hematologic/Lymphatic: Denies none, anemia, easy bleeding, easy bruising or lymphadenopathy Allergic/Immunologic Allergic/Immunologic: Denies rhinitis, urticaria, eczemia or asthma Vital Signs Vital Signs Vital Signs: 08/22/23 06:26 08/22/23 06:36 08/22/23 07:26 Temperature 97.8 F Temperature Source Temporal Pulse Rate 85 Respiratory Rate 28 H Respiratory Effort Normal Respiratory Depth Respiratory Pattern Blood Pressure 162/110 H Blood Pressure Mean 127 Blood Pressure Source Pulse Ox 96 Oxygen Delivery Method Nasal Cannula Nasal Cannula Oxygen Flow Rate (L/min) 4 4 08/22/23 07:43 08/22/23 09:55 08/22/23 11:00 Temperature 97.6 F L Temperature Source Pulse Rate 81 108 H 64 Respiratory Rate 20 H 36 H 14 Respiratory Effort Respiratory Depth Respiratory Pattern Tachypnea Blood Pressure 136/78 H Blood Pressure Mean 97 Blood Pressure Source Pulse Ox 93 99 Oxygen Delivery Method Nasal Cannula Oxygen Flow Rate (L/min) 4 08/22/23 11:45 08/22/23 14:00 08/22/23 15:45 Temperature 98.6 F Temperature Source Oral Pulse Rate 93 88 Respiratory Rate 16 21 H Respiratory Effort Short of Breath Labored Respiratory Depth Shallow Respiratory Pattern Tachypnea Normal Blood Pressure 147/54 H Blood Pressure Mean 85 Blood Pressure Source Monitor Pulse Ox 94 Oxygen Delivery Method Nasal Cannula Nasal Cannula Oxygen Flow Rate (L/min) 6 6 08/22/23 16:57 Temperature 97.6 F L Temperature Source Oral Pulse Rate 85 Respiratory Rate 16 Respiratory Effort Respiratory Depth Respiratory Pattern Blood Pressure 147/115 H Blood Pressure Mean 125 Blood Pressure Source Monitor Pulse Ox 94 Oxygen Delivery Method Nasal Cannula Oxygen Flow Rate (L/min) 6 Weight Weight: 99.7 kg Body Mass Index (BMI) 39.6 Physical Exam Const alert, oriented x3 and no apparent distress General Appearance: cooperative, well kempt and well developed Orientation / Consciousness: awake, oriented to person, oriented to place and oriented to time HEENT normocephalic, head/scalp atraumatic, hearing grossly normal bilaterally and moist oral mucous membranes Eyes PERRL, EOMs intact bilaterally and conjunctivae normal Neck supple, no JVD, thyroid normal and no carotid bruits General: trachea midline Resp normal respiratory effort, no retractions and no use of accessory muscles Resp Narrative: Scattered expiratory wheezes are noted bilaterally, inspiratory rales are noted at the left lung base Auscultation: Negative for rales, rhonchi or wheezes Cardio regular rate, regular rhythm, S1 normal heart sound, S2 normal heart sound, no murmurs, no rub and no gallops GI normal to inspection, nondistended, normoactive bowel sounds, soft to palpation,non-tender and non-distended Extremity no clubbing, cyanosis or edema Skin no rashes or lesions noted General Skin Exam: no breakdown Neuro oriented x3, CN's II-XII intact bilaterally, no focal motor deficits and no sensory deficits noted Sensorium / Orientation: awake and alert Speech: speech normal Psych affect normal Results Lab / Micro Data 08/23/23 06:00 08/23/23 06:00 Labs: Laboratory Results - last 24 hr 08/22/23 06:40: WBC 13.6 H, RBC 3.98 L, Hgb 11.2 L, Hct 35.0 L, MCV 87.9, MCH 28.1, MCHC 32.0, RDW Std Deviation 40.6, RDW Coeff of Malcom 12.6, Plt Count 324, MPV 10.4, Immature Gran % (Auto) 0.500, Neut % (Auto) 70.7 H, Lymph % (Auto) 20.9, Cooke % (Auto) 5.7, Eos % (Auto) 1.5, Baso % (Auto) 0.7, Absolute Neuts (auto) 9.6 H, Absolute Lymphs (auto) 2.84, Nucleated RBC % 0, Sodium 128 L, Potassium 3.9, Chloride 91 L, Carbon Dioxide 30.0, Anion Gap 7, BUN 9, Creatinine 0.71, Estim Creat Clear Calc 71.15, Est GFR (MDRD) Af Amer 104, Est GFR (MDRD) Non-Af 86, BUN/Creatinine Ratio 12.6, Glucose 205 H, Calcium 8.9, Troponin I High Sens 10, B-Natriuretic Peptide 102.0 H 08/22/23 07:40: Lactic Acid 1.7 08/22/23 12:01: POC Glucose 284 H 08/22/23 16:56: POC Glucose 219 H Micro: Microbiology 08/22/23 07:40 Mucosa - Nose SARS-CoV-2, Influenza & RSV (PCR) - Final RSV Rhythm Strip Rhythm Strip: Sinus Rhythm Rate: 78 Ectopy: PVC(s) Imagaing Radiology Impression Chest X-Ray 08/22/23 07:01 IMPRESSION: Dense consolidation left lower lung may be due to pneumonia. Electronically Signed: Raz Joe MD at 7:29 EST , Assessment & Plan Assessment/Plan (1) Chronic hypoxemic respiratory failure: PLAN: Plan 1. Left lower lobe community-acquired pneumonia-due to the patient's high morbidity, patient will be admitted to PCU and placed on IV meropenem, she will receive aerosol treatments, sputum culture will be obtained, urine antigen for Legionella and strep pneumo will be obtained, chest x-ray will be repeated tomorrow #2 acute RSV infection-patient will be placed on IV corticosteroids, she will remain on aerosol treatments #3 chronic hypoxic respiratory failure-patient is on 4 L of oxygen at baseline, pulse ox will be monitored #4 asthma with COPD-again due to the patient's RSV infection and the presence ofCOPD, I have elected to place her on IV corticosteroids #5 type 2 diabetes-blood sugars will be monitored, sliding scale insulin was given as needed Total clinical time spent by myself addressing the patient's medical issues, reviewing all of her data, and collaborating with patient's care team: 55 minutes Charges/Coding Visit Charges Inpatient E&M: 80189 Init Hosp L2 08/23/232123 <Electronically signed by Jorge Lee DO> Cosigner Signature (if applicable): CC: Dr. Billy Madera MD; Dr. Jorge Lee DO~ Signed [facility] Work Phone: [phone] Discharge summary Author [facility] August 22, 2023 10:23am Note Date/Time August 22, 2023 7 :37am [facility] Medical Records Department [address] [place] [id number] Emergency Department Summary 08/22/23 MR#: [id number] Acct: [id number] Name: JEANNA VARGAS Rep #:[id number] : 1950 73 From: Sera Reynoso PCP: Dr. Billy Madera MD Status:R EG ER Location: ED HPI History of Present Illness Chief Complaint: Shortness of Breath Informant: patient Narrative Narrative: Patient is 73-year-old female with history of of chronic hypoxic respiratory failure (on 4 L of oxygen at baseline), COPD, type 2 diabetes mellitus, coronaryartery disease, dermatomyositis, GERD, flash pulmonary edema, CHF presenting with increased SOB. Patient states she is on prednisone for the past 8 days. She states she was also started on azithromycin. She is not sure what doses of that she is received. She has been feeling more short of breath. Requested come to the ER. Is currently in detention at her nursing facility. Notesthat she did develop some chest pain in the left today. Reports that she had some swelling of her legs. States she normally can ambulate with a walker. Shebeen more short of breath with ambulation in the past few days. Does not feel that she can catch her breath. Does report some nausea and constipation (last bowel movement 4 days ago) but denies any abdominal pain. Received a DuoNeb treatment at 3 AM with some improvement but her symptoms returned. [facility] Medical History Anemia Anxiety and depression Asthma with COPD Atherosclerotic heart disease of [place] coronary artery without angina pectoris Back pain Bilateral pneumonia Chest pain Chronic back pain Chronic respiratory failure COPD (chronic obstructive pulmonary disease) Diastolic CHF Endotracheally intubated Former smoker Hepatitis HLD (hyperlipidemia) Hypertension Morbid obesity Obesity MARK treated with BiPAP Psoriasis Smoking greater than 40 pack years Thyroid nodule Type 2 diabetes mellitus Home Medications Handicap Placard #1 ea 12/12/20 [Rx Last Taken Unknown] bisacodyl 5 mg tablet,delayed release (Dulcolax (bisacodyl)) 5 mg PO QHS PRN constipation 30 days #30 tabs 11/13/21 [Rx Last Taken Unknown] pen needle, diabetic 32 gauge x " #50 ea 02/11/22 [Rx Last Taken Unknown] blood sugar diagnostic (True Metrix Glucose Test Strip) #100 ea 09/11/22 [Rx Last Taken Unknown] blood-glucose meter (True Metrix Glucose Meter) #1 ea 09/11/22 [Rx Last Taken Unknown] albuterol sulfate 90 mcg/actuation aerosol inhaler 2 puff inhalation Q6H PRN shortness of breath or wheezing #18 grams 11/06/22 [Rx Last Taken Unknown] ipratropium 0.5 mg-albuterol 3 mg (2.5 mg base)/3 mL nebulization soln 3 ml inhalation Q4H PRN PRN SOB &/OR WHEEZING #180 mL 11/10/22 [Rx Last Taken Unknown] cane #1 ea 11/16/22 [Rx Last Taken Unknown] citalopram 40 mg tablet 40 mg PO QHS depression #90 tabs 11/16/22 [Rx Last Taken Unknown] isosorbide mononitrate 60 mg tablet,extended release 24 hr 60 mg PO DAILY BP #90tabs 12/26/22 [Rx Last Taken Unknown] nitroglycerin 0.4 mg sublingual tablet 0.4 mg sublingual Q5-15M PRN Pain #30 tabs 12/26/22 [Rx Last Taken Unknown] flash glucose sensor ([employer] Tanika 2 Sensor kit) #2 ea 01/06/23 [Rx Last Taken Unknown] atorvastatin 80 mg tablet 80 mg PO QHS cholesterol 01/26/23 [History Last Taken Unknown] clopidogrel 75 mg tablet 75 mg PO DAILY blood thinner 01/26/23 [History Last Taken Unknown] furosemide 20 mg tablet (Lasix) 20 mg PO BID diuretic 01/26/23 [History Last Taken Unknown] metoprolol tartrate 25 mg tablet 12.5 mg PO BID blood pressure 01/26/23 [History Last Taken Unknown] flash glucose scanning reader ([employer] Tanika [employer] [place]) #1 ea 03/23/23 [Rx Last Taken Unknown] ondansetron HCl 4 mg tablet 4 mg PO Q6H PRN nausea and vomiting #14 tabs 04/16/23 [Rx Last Taken Unknown] sucralfate 1 gram tablet (Carafate) 1 g PO TID PRN acid reflux #20 tabs 04/16/23[Rx Last Taken Unknown] pantoprazole 40 mg tablet,delayed release 40 mg PO BID stomach #180 tabs 05/20/23 [Rx Last Taken Unknown] acetaminophen 500 mg tablet 1,000 mg (2 x 500 mg) PO Q8 7 days #0 tabs 06/04/23 [Rx Last Taken Unknown] insulin lispro 100 unit/mL subcutaneous pen (Humalog KwikPen (U-100) Insulin) 2 - 11 unit subcut ACHS #0 mL 06/04/23 [Rx Last Taken Unknown] losartan 25 mg tablet 50 mg (2 x 25 mg) PO DAILY blood pressure 30 days #0 tabs 06/04/23 [Rx Last Taken Unknown] aluminum-magnesium hydroxide 225 mg-200 mg/5 mL oral suspension 30 ml PO Q4H PRNUPSET STOMACH 07/23/23 [History Last Taken Unknown] buspirone 5 mg tablet 7.5 mg PO TID 07/23/23 [History Last Taken Unknown] dextrose 40 % oral gel (Glucose Gel) 10 g PO Q15M PRN hypoglycemia 07/23/23 [History Last Taken Unknown] guaifenesin 200 mg/5 mL oral liquid 400 mg PO Q4H PRN cough 07/23/23 [History Last Taken Unknown] therapeutic multivitamin 1 tab PO DAILY 07/23/23 [History Last Taken Unknown] budesonide 1 mg/2 mL suspension for nebulization 0.5 mg inhalation BID 08/13/23 [History Last Taken Unknown] insulin glargine 100 unit/mL (3 mL) subcutaneous pen (Basaglar KwikPen U-100 Insulin) 32 unit subcut QHS diabetic managment 08/13/23 [History Last Taken Unknown] potassium chloride 20 mEq tablet,extended release 20 meq PO BID 08/22/23 [History Last Taken Unknown] prednisone 10 mg tablet 10 mg PO DAILY 08/22/23 [History Last Taken Unknown] trazodone 50 mg tablet 25 mg PO QHS 08/22/23 [History Last Taken Unknown] Allergy/AdvReac Type Severity Reaction Status Date / Time Iodinated Contrast Media Allergy Severe Anaphylaxis Verified 08/22/23 06:34 amoxicillin [Amoxicillin] Allergy Intermediate Rash Verified 08/22/23 06:34 hydrocodone Allergy Intermediate SWELLING Verified 08/22/23 06:34 gabapentin [From Neurontin] Allergy Shortness Verified 08/22/23 06:34 of breath levofloxacin [From Levaquin] Allergy Hives Verified 08/22/23 06:34 pseudoephedrine HCl Allergy Shortness Verified 08/22/23 06:34 [From Sudafed] of breath red dye Allergy Hives Verified 08/22/23 06:34 prednisone AdvReac Severe mean mood Verified 08/22/23 06:34 clonazepam [From Klonopin] AdvReac Depression Verified 08/22/23 06:34 codeine AdvReac HEADACHE Verified 08/22/23 06:34 Family History Brother Heart disease Mother Colon cancer Heart disease Surgical History History of cholecystectomy History of left heart catheterization (LHC) (~09/23/20) Stented coronary artery (12/28/18) Social History Smoking Status: Former smoker pack-years: 40 how long ago did patient quit smokin year ago alcohol intake: never substance use type: does not use caffeine: Yes Type: carbonated beverages and tea what type of physical activity do you participate in: none ROS ROS ED Constitutional Constitutional ED: Denies chills or fever(s) Eyes Eyes: Denies change in vision ENT ENT ED: Reports ear pain and other Details: nasal congestion Cardiovascular Cardiovascular: Reports chest pain; Denies palpitations Respiratory/Chest Respiratory/Chest: Reports cough and dyspnea Gastrointestinal Gastrointestinal: Reports constipation and nausea; Denies abdominal pain or vomiting Musculoskeletal Musculoskeletal: Denies arthralgias or myalgias Integumentary Denies rash Neurologic Neurologic: Reports weakness; Denies headache(s) Hematologic/Lymphatic Hematologic/Lymphatic: Denies easy bleeding or easy bruising EXAM Physical Exam Const Vital Signs: 08/22/23 06:26 08/22/23 06:36 08/22/23 07:26 Temperature 97.8 F Temperature Source Temporal Pulse Rate 85 Respiratory Rate 28 H Respiratory Effort Normal Respiratory Pattern Blood Pressure 162/110 H Blood Pressure Mean 127 Pulse Ox 96 Oxygen Delivery Method Nasal Cannula Nasal Cannula Oxygen Flow Rate (L/min) 4 4 08/22/23 07:43 08/22/23 09:55 Temperature Temperature Source Pulse Rate 81 108 H Respiratory Rate 20 H 36 H Respiratory Effort Respiratory Pattern Tachypnea Blood Pressure Blood Pressure Mean Pulse Ox 93 Oxygen Delivery Method Nasal Cannula Oxygen Flow Rate (L/min) 4 Positive well nourished and well developed General Appearance ED: well developed; Negative for pallor HEENT Reports TM's clear and dry mucous membranes Tympanic Membrane ED: Yes TM's clear Mouth ED: Yes dry mucous membranes Mouth: dry mucous membranes Eyes PERRL and EOMs intact bilaterally Neck supple and no JVD Resp Resp Narrative: Tachypneic, coarse breath sounds throughout with diminished air movement. And expiratory wheezing present most pronounced in the upper lobes Cardio regular rate, regular rhythm and no murmurs GI non-tender and non-distended Extremity Extremity Narrative: 2+ non-pitting pedal edema General Extremety ED: Yes edema General Extremity: edema Neuro oriented x3 Sensorium / Orientation: alert Motor Exam: general weakness Psych mental status grossly normal Skin no wounds General Skin Exam: Negative for pallor MDM MDM MDM Narrative Medical decision making narrative: Evaluate for increased shortness of breath. Says she has had about 2 weeks of cold symptoms that are worsening. She is already on azithromycin and prednisonetaper yet her symptoms are worsening. Differential includes fluid overload although clinically patient visual bit more dry), pneumonia, persistent COPD exacerbation. Will obtain labs and chest x-ray as well as EKG Administered a DuoNeb as well as 60 mg IV Solu-Medrol in the emergency room. Improvement with DuoNeb but then starts to complain of more shortness of breath about an hour and a half later. Workup shows a mild leukocytosis 13.6. Unclear if this is reactive, associate with acute infection or secondary to recent steroids. Chest x-ray viewed by myself as well as radiology does show left lower lobe infiltrate. Started on Rocephin and azithromycin in the emergency room. She has a mild hyponatremia the sodium 128 and is given IV fluids. Low suspicion for fluid overload at thistime and her BNP is largely normal (102). Patient's quite symptomatic with any type of ambulation/movement or exertion and becomes very tachypneic. Given her aerosol demands, symptoms and the fact that she is worsening despite being on steroids at her nursing facility will admit her for this pneumonia, COPD exacerbation likely secondary to positive RSV and further respiratory monitoring. Patient agreeable this plan of care. Case is discussed with my physician, Dr. Lee. Lab Data Attestation: I reviewed the patient's lab results. Labs: Laboratory Results - last 24 hr 08/22/23 08/22/23 06:40 07:40 WBC 13.6 H RBC 3.98 L Hgb 11.2 L Hct 35.0 L MCV 87.9 MCH 28.1 MCHC 32.0 RDW Std Deviation 40.6 RDW Coeff of Malcom 12.6 Plt Count 324 MPV 10.4 Immature Gran % (Auto) 0.500 Neut % (Auto) 70.7 H Lymph % (Auto) 20.9 Cooke % (Auto) 5.7 Eos % (Auto) 1.5 Baso % (Auto) 0.7 Absolute Neuts (auto) 9.6 H Absolute Lymphs (auto) 2.84 Nucleated RBC % 0 Sodium 128 L Potassium 3.9 Chloride 91 L Carbon Dioxide 30.0 Anion Gap 7 BUN 9 Creatinine 0.71 Estim Creat Clear Calc 71.15 Est GFR (MDRD) Af Amer 104 Est GFR (MDRD) Non-Af 86 BUN/Creatinine Ratio 12.6 Glucose 205 H Lactic Acid 1.7 Calcium 8.9 Troponin I High Sens 10 B-Natriuretic Peptide 102.0 H Radiography Chest X-Ray - ED: 2 View, Read by ED Physician, Read by Radiologist and Left Infiltrate Diagnostic Testing: Clinical Impression(s) from Imaging Studies Chest X-Ray 08/22/23 07:01 IMPRESSION: Dense consolidation left lower lung may be due to pneumonia. Electronically Signed: Raz Joe MD at 7:29 EST , Rhythm Strip Rhythm Strip: Sinus Rhythm Rate: 78 Ectopy: PVC(s) EKG Initial EKG: Attestation: I personally reviewed and interpreted this EKG as follows: Interpretation: Sinus Rhythm Comments: Normal sinus rhythm rate of 78 bpm Normal axis Normal intervals Normal ST segments PVC present Compared to prior EKG on 05/30/2023, patient is a new PVC but no other acute changes Management Discussion w/another healthcare provider: Hospitalist Discharge Plan Triage Chief Complaint: Shortness of Breath ED Provider: Sera Aguilar Dx/Rx/DC Orders Clinical Impression: Acute exacerbation of chronic obstructive pulmonary disease (COPD), Hyponatremia, Left lower lobe pneumonia, RSV infection, Acute dyspnea, Chronic hypoxemic respiratory failure Prescriptions: No Action (DME) Handicap Placard See Rx Instructions .ROUTE .MEDSUPPLY Qty: 1 0RF Rx Instructions: As directed, length of time 3 years citalopram 40 mg tablet 40 mg PO QHS Qty: 90 3RF (DME) cane Device See Rx Instructions .Route Qty: 1 0RF Rx Instructions: As directed pantoprazole 40 mg tablet,delayed release (DR/EC) 40 mg PO BID Qty: 180 2RF therapeutic multivitamin Tablet 1 tab PO DAILY guaifenesin 200 mg/5 mL liquid 400 mg PO Q4H PRN (Reason: cough) dextrose [Glucose Gel] 40 % gel 10 g PO Q15M PRN (Reason: hypoglycemia) Rx Instructions: until symptoms of low blood sugar are controlled buspirone 5 mg tablet 7.5 mg PO TID aluminum-magnesium hydroxide 225-200 mg/5 mL suspension 30 ml PO Q4H PRN (Reason: UPSET STOMACH) budesonide 1 mg/2 mL suspension for nebulization 0.5 mg inhalation BID insulin glargine [Basaglar KwikPen U-100 Insulin] 100 unit/mL (3 mL) insulin pen 32 unit subcut QHS Rx Instructions: daily at bedtime isosorbide mononitrate 60 mg tablet extended release 24 hr 60 mg PO DAILY Qty: 90 3RF nitroglycerin 0.4 mg tablet, sublingual 0.4 mg SUBLINGUAL Q5-15M PRN (Reason: Pain) Qty: 30 0RF atorvastatin 80 mg tablet 80 mg PO QHS clopidogrel 75 mg tablet 75 mg PO DAILY furosemide [Lasix] 20 mg tablet 20 mg PO BID metoprolol tartrate 25 mg tablet 12.5 mg PO BID Rx Instructions: sucralfate [Carafate] 1 gram tablet 1 g PO TID PRN (Reason: acid reflux) Qty: 20 0RF ondansetron HCl 4 mg tablet 4 mg PO Q6H PRN (Reason: nausea and vomiting) Qty: 14 0RF acetaminophen 500 mg Tablet 1,000 mg PO Q8 7 Days Qty: 0 0RF insulin lispro [Humalog KwikPen Insulin] 100 unit/mL Insulin Pen 2 - 11 unit subcut ACHS Qty: 0 0RF Protocol: 4. Sliding Scale Insulin High-Med Dosing Condition: 150-199 mg/dl = 2 units Condition: 200-259 mg/dl = 4 units Condition: 260-324 mg/dl = 6 units Condition: 325-374 mg/dl = 8 units Condition: 375-409 mg/dl = 10 units Condition: 410-449 mg/dl = 11 units Condition: Greater than 449 call physician Protocol Text: - Use for Total Daily Dose of Insulin 56-80 units - Patient who are insulin resistant or septic HIGH MEDIUM DOSING ALGORITHM losartan 25 mg tablet 50 mg PO DAILY 30 Days Qty: 0 0RF prednisone 10 mg tablet 10 mg PO DAILY trazodone 50 mg tablet 25 mg PO QHS potassium chloride 20 mEq tablet extended release 20 meq PO BID bisacodyl [Dulcolax (bisacodyl)] 5 mg tablet,delayed release (DR/EC) 5 mg PO QHS PRN (Reason: constipation) 30 Days Qty: 30 3RF (DME) pen needle, diabetic 32 gauge x 5/32" needle See Rx Instructions .ROUTE .MEDSUPPLY Qty: 50 0RF Rx Instructions: 4x/day (DME) blood-glucose meter [True Metrix Glucose Meter] Misc See Rx Instructions .Route Qty: 1 0RF Rx Instructions: As directed (DME) True Metrix Glucose Test Strip Strip See Rx Instructions .Route Qty: 100 7RF Rx Instructions: tid albuterol sulfate 90 mcg/actuation HFA aerosol inhaler 2 puff INHALATION Q6H PRN (Reason: shortness of breath or wheezing) Qty: 18 3RF ipratropium-albuterol 0.5 mg-3 mg(2.5 mg base)/3 mL solution for nebulization 3 ml INHALATION Q4H PRN PRN (Reason: SOB &/OR WHEEZING) Qty: 180 6RF (DME) FreeStyle Tanika 2 Sensor Kit See Rx Instructions .ROUTE .MEDSUPPLY Qty: 2 3RF Rx Instructions: As directed (DME) FreeStyle Tanika 2 [place] Misc See Rx Instructions .ROUTE .MEDSUPPLY Qty: 1 0RF Rx Instructions: As directed Primary Care Provider: Billy Madera Referrals: Billy Madera MD [Primary Care Provider] - Disposition Disposition: Acute Care Hospital [facility] What to do if you have Problems For any increased pain, shortness of breath, bleeding, nausea or vomiting, chestpain, or any unexpected problems, contact your Primary Care Provider. Call [facility] ([phone]) or report to the closest Emergency Room. Call 911 if necessary. 08/22/23 1023 <Electronically signed by Sera Aguilar DO> Cosigner Signature (if applicable): CC: Dr. Billy Madera MD ~ Signed [facility] Work Phone: [phone] Discharge summary Author [facility] August 22, 2023 10:23am Note Date/Time August 22, 2023 7 :37am [facility] Medical Records Department [address] [place] [address] Emergency Department Summary 08/22/23 MR#: [id number] Acct: [id number] Name: JEANNA VARGAS Rep #:[id number] : 1950 73 From: Sera Reynoso PCP: Dr. Billy Madera MD Status:R EG ER Location: ED HPI History of Present Illness Chief Complaint: Shortness of Breath Informant: patient Narrative Narrative: Patient is 73-year-old female with history of of chronic hypoxic respiratory failure (on 4 L of oxygen at baseline), COPD, type 2 diabetes mellitus, coronaryartery disease, dermatomyositis, GERD, flash pulmonary edema, CHF presenting with increased SOB. Patient states she is on prednisone for the past 8 days. She states she was also started on azithromycin. She is not sure what doses of that she is received. She has been feeling more short of breath. Requested come to the ER. Is currently in detention at her nursing facility. Notesthat she did develop some chest pain in the left today. Reports that she had some swelling of her legs. States she normally can ambulate with a walker. Shebeen more short of breath with ambulation in the past few days. Does not feel that she can catch her breath. Does report some nausea and constipation (last bowel movement 4 days ago) but denies any abdominal pain. Received a DuoNeb treatment at 3 AM with some improvement but her symptoms returned. [facility] Medical History Anemia Anxiety and depression Asthma with COPD Atherosclerotic heart disease of [place] coronary artery without angina pectoris Back pain Bilateral pneumonia Chest pain Chronic back pain Chronic respiratory failure COPD (chronic obstructive pulmonary disease) Diastolic CHF Endotracheally intubated Former smoker Hepatitis HLD (hyperlipidemia) Hypertension Morbid obesity Obesity MARK treated with BiPAP Psoriasis Smoking greater than 40 pack years Thyroid nodule Type 2 diabetes mellitus Home Medications Handicap Placard #1 ea 12/12/20 [Rx Last Taken Unknown] bisacodyl 5 mg tablet,delayed release (Dulcolax (bisacodyl)) 5 mg PO QHS PRN constipation 30 days #30 tabs 11/13/21 [Rx Last Taken Unknown] pen needle, diabetic 32 gauge x " #50 ea 02/11/22 [Rx Last Taken Unknown] blood sugar diagnostic (True Metrix Glucose Test Strip) #100 ea 09/11/22 [Rx Last Taken Unknown] blood-glucose meter (True Metrix Glucose Meter) #1 ea 09/11/22 [Rx Last Taken Unknown] albuterol sulfate 90 mcg/actuation aerosol inhaler 2 puff inhalation Q6H PRN shortness of breath or wheezing #18 grams 11/06/22 [Rx Last Taken Unknown] ipratropium 0.5 mg-albuterol 3 mg (2.5 mg base)/3 mL nebulization soln 3 ml inhalation Q4H PRN PRN SOB &/OR WHEEZING #180 mL 11/10/22 [Rx Last Taken Unknown] cane #1 ea 11/16/22 [Rx Last Taken Unknown] citalopram 40 mg tablet 40 mg PO QHS depression #90 tabs 11/16/22 [Rx Last Taken Unknown] isosorbide mononitrate 60 mg tablet,extended release 24 hr 60 mg PO DAILY BP #90tabs 12/26/22 [Rx Last Taken Unknown] nitroglycerin 0.4 mg sublingual tablet 0.4 mg sublingual Q5-15M PRN Pain #30 tabs 12/26/22 [Rx Last Taken Unknown] flash glucose sensor ([employer] Tanika 2 Sensor kit) #2 ea 01/06/23 [Rx Last Taken Unknown] atorvastatin 80 mg tablet 80 mg PO QHS cholesterol 01/26/23 [History Last Taken Unknown] clopidogrel 75 mg tablet 75 mg PO DAILY blood thinner 01/26/23 [History Last Taken Unknown] furosemide 20 mg tablet (Lasix) 20 mg PO BID diuretic 01/26/23 [History Last Taken Unknown] metoprolol tartrate 25 mg tablet 12.5 mg PO BID blood pressure 01/26/23 [History Last Taken Unknown] flash glucose scanning reader ([employer] Tanika [employer] [place]) #1 ea 03/23/23 [Rx Last Taken Unknown] ondansetron HCl 4 mg tablet 4 mg PO Q6H PRN nausea and vomiting #14 tabs 04/16/23 [Rx Last Taken Unknown] sucralfate 1 gram tablet (Carafate) 1 g PO TID PRN acid reflux #20 tabs 04/16/23[Rx Last Taken Unknown] pantoprazole 40 mg tablet,delayed release 40 mg PO BID stomach #180 tabs 05/20/23 [Rx Last Taken Unknown] acetaminophen 500 mg tablet 1,000 mg (2 x 500 mg) PO Q8 7 days #0 tabs 06/04/23 [Rx Last Taken Unknown] insulin lispro 100 unit/mL subcutaneous pen (Humalog KwikPen (U-100) Insulin) 2 - 11 unit subcut ACHS #0 mL 06/04/23 [Rx Last Taken Unknown] losartan 25 mg tablet 50 mg (2 x 25 mg) PO DAILY blood pressure 30 days #0 tabs 06/04/23 [Rx Last Taken Unknown] aluminum-magnesium hydroxide 225 mg-200 mg/5 mL oral suspension 30 ml PO Q4H PRNUPSET STOMACH 07/23/23 [History Last Taken Unknown] buspirone 5 mg tablet 7.5 mg PO TID 07/23/23 [History Last Taken Unknown] dextrose 40 % oral gel (Glucose Gel) 10 g PO Q15M PRN hypoglycemia 07/23/23 [History Last Taken Unknown] guaifenesin 200 mg/5 mL oral liquid 400 mg PO Q4H PRN cough 07/23/23 [History Last Taken Unknown] therapeutic multivitamin 1 tab PO DAILY 07/23/23 [History Last Taken Unknown] budesonide 1 mg/2 mL suspension for nebulization 0.5 mg inhalation BID 08/13/23 [History Last Taken Unknown] insulin glargine 100 unit/mL (3 mL) subcutaneous pen (Basaglar KwikPen U-100 Insulin) 32 unit subcut QHS diabetic managment 08/13/23 [History Last Taken Unknown] potassium chloride 20 mEq tablet,extended release 20 meq PO BID 08/22/23 [History Last Taken Unknown] prednisone 10 mg tablet 10 mg PO DAILY 08/22/23 [History Last Taken Unknown] trazodone 50 mg tablet 25 mg PO QHS 08/22/23 [History Last Taken Unknown] Allergy/AdvReac Type Severity Reaction Status Date / Time Iodinated Contrast Media Allergy Severe Anaphylaxis Verified 08/22/23 06:34 amoxicillin [Amoxicillin] Allergy Intermediate Rash Verified 08/22/23 06:34 hydrocodone Allergy Intermediate SWELLING Verified 08/22/23 06:34 gabapentin [From Neurontin] Allergy Shortness Verified 08/22/23 06:34 of breath levofloxacin [From Levaquin] Allergy Hives Verified 08/22/23 06:34 pseudoephedrine HCl Allergy Shortness Verified 08/22/23 06:34 [From Sudafed] of breath red dye Allergy Hives Verified 08/22/23 06:34 prednisone AdvReac Severe mean mood Verified 08/22/23 06:34 clonazepam [From Klonopin] AdvReac Depression Verified 08/22/23 06:34 codeine AdvReac HEADACHE Verified 08/22/23 06:34 Family History Brother Heart disease Mother Colon cancer Heart disease Surgical History History of cholecystectomy History of left heart catheterization (LHC) (~09/23/20) Stented coronary artery (12/28/18) Social History Smoking Status: Former smoker pack-years: 40 how long ago did patient quit smokin year ago alcohol intake: never substance use type: does not use caffeine: Yes Type: carbonated beverages and tea what type of physical activity do you participate in: none ROS ROS ED Constitutional Constitutional ED: Denies chills or fever(s) Eyes Eyes: Denies change in vision ENT ENT ED: Reports ear pain and other Details: nasal congestion Cardiovascular Cardiovascular: Reports chest pain; Denies palpitations Respiratory/Chest Respiratory/Chest: Reports cough and dyspnea Gastrointestinal Gastrointestinal: Reports constipation and nausea; Denies abdominal pain or vomiting Musculoskeletal Musculoskeletal: Denies arthralgias or myalgias Integumentary Denies rash Neurologic Neurologic: Reports weakness; Denies headache(s) Hematologic/Lymphatic Hematologic/Lymphatic: Denies easy bleeding or easy bruising EXAM Physical Exam Const Vital Signs: 08/22/23 06:26 08/22/23 06:36 08/22/23 07:26 Temperature 97.8 F Temperature Source Temporal Pulse Rate 85 Respiratory Rate 28 H Respiratory Effort Normal Respiratory Pattern Blood Pressure 162/110 H Blood Pressure Mean 127 Pulse Ox 96 Oxygen Delivery Method Nasal Cannula Nasal Cannula Oxygen Flow Rate (L/min) 4 4 08/22/23 07:43 08/22/23 09:55 Temperature Temperature Source Pulse Rate 81 108 H Respiratory Rate 20 H 36 H Respiratory Effort Respiratory Pattern Tachypnea Blood Pressure Blood Pressure Mean Pulse Ox 93 Oxygen Delivery Method Nasal Cannula Oxygen Flow Rate (L/min) 4 Positive well nourished and well developed General Appearance ED: well developed; Negative for pallor HEENT Reports TM's clear and dry mucous membranes Tympanic Membrane ED: Yes TM's clear Mouth ED: Yes dry mucous membranes Mouth: dry mucous membranes Eyes PERRL and EOMs intact bilaterally Neck supple and no JVD Resp Resp Narrative: Tachypneic, coarse breath sounds throughout with diminished air movement. And expiratory wheezing present most pronounced in the upper lobes Cardio regular rate, regular rhythm and no murmurs GI non-tender and non-distended Extremity Extremity Narrative: 2+ non-pitting pedal edema General Extremety ED: Yes edema General Extremity: edema Neuro oriented x3 Sensorium / Orientation: alert Motor Exam: general weakness Psych mental status grossly normal Skin no wounds General Skin Exam: Negative for pallor MDM MDM MDM Narrative Medical decision making narrative: Evaluate for increased shortness of breath. Says she has had about 2 weeks of cold symptoms that are worsening. She is already on azithromycin and prednisonetaper yet her symptoms are worsening. Differential includes fluid overload although clinically patient visual bit more dry), pneumonia, persistent COPD exacerbation. Will obtain labs and chest x-ray as well as EKG Administered a DuoNeb as well as 60 mg IV Solu-Medrol in the emergency room. Improvement with DuoNeb but then starts to complain of more shortness of breath about an hour and a half later. Workup shows a mild leukocytosis 13.6. Unclear if this is reactive, associate with acute infection or secondary to recent steroids. Chest x-ray viewed by myself as well as radiology does show left lower lobe infiltrate. Started on Rocephin and azithromycin in the emergency room. She has a mild hyponatremia the sodium 128 and is given IV fluids. Low suspicion for fluid overload at thistime and her BNP is largely normal (102). Patient's quite symptomatic with any type of ambulation/movement or exertion and becomes very tachypneic. Given her aerosol demands, symptoms and the fact that she is worsening despite being on steroids at her nursing facility will admit her for this pneumonia, COPD exacerbation likely secondary to positive RSV and further respiratory monitoring. Patient agreeable this plan of care. Case is discussed with my physician, Dr. Lee. Lab Data Attestation: I reviewed the patient's lab results. Labs: Laboratory Results - last 24 hr 08/22/23 08/22/23 06:40 07:40 WBC 13.6 H RBC 3.98 L Hgb 11.2 L Hct 35.0 L MCV 87.9 MCH 28.1 MCHC 32.0 RDW Std Deviation 40.6 RDW Coeff of Malcom 12.6 Plt Count 324 MPV 10.4 Immature Gran % (Auto) 0.500 Neut % (Auto) 70.7 H Lymph % (Auto) 20.9 Cooke % (Auto) 5.7 Eos % (Auto) 1.5 Baso % (Auto) 0.7 Absolute Neuts (auto) 9.6 H Absolute Lymphs (auto) 2.84 Nucleated RBC % 0 Sodium 128 L Potassium 3.9 Chloride 91 L Carbon Dioxide 30.0 Anion Gap 7 BUN 9 Creatinine 0.71 Estim Creat Clear Calc 71.15 Est GFR (MDRD) Af Amer 104 Est GFR (MDRD) Non-Af 86 BUN/Creatinine Ratio 12.6 Glucose 205 H Lactic Acid 1.7 Calcium 8.9 Troponin I High Sens 10 B-Natriuretic Peptide 102.0 H Radiography Chest X-Ray - ED: 2 View, Read by ED Physician, Read by Radiologist and Left Infiltrate Diagnostic Testing: Clinical Impression(s) from Imaging Studies Chest X-Ray 08/22/23 07:01 IMPRESSION: Dense consolidation left lower lung may be due to pneumonia. Electronically Signed: Raz Joe MD at 7:29 EST , Rhythm Strip Rhythm Strip: Sinus Rhythm Rate: 78 Ectopy: PVC(s) EKG Initial EKG: Attestation: I personally reviewed and interpreted this EKG as follows: Interpretation: Sinus Rhythm Comments: Normal sinus rhythm rate of 78 bpm Normal axis Normal intervals Normal ST segments PVC present Compared to prior EKG on 05/30/2023, patient is a new PVC but no other acute changes Management Discussion w/another healthcare provider: Hospitalist Discharge Plan Triage Chief Complaint: Shortness of Breath ED Provider: Sera Aguilar Dx/Rx/DC Orders Clinical Impression: Acute exacerbation of chronic obstructive pulmonary disease (COPD), Hyponatremia, Left lower lobe pneumonia, RSV infection, Acute dyspnea, Chronic hypoxemic respiratory failure Prescriptions: No Action (DME) Handicap Placard See Rx Instructions .ROUTE .MEDSUPPLY Qty: 1 0RF Rx Instructions: As directed, length of time 3 years citalopram 40 mg tablet 40 mg PO QHS Qty: 90 3RF (DME) cane Device See Rx Instructions .Route Qty: 1 0RF Rx Instructions: As directed pantoprazole 40 mg tablet,delayed release (DR/EC) 40 mg PO BID Qty: 180 2RF therapeutic multivitamin Tablet 1 tab PO DAILY guaifenesin 200 mg/5 mL liquid 400 mg PO Q4H PRN (Reason: cough) dextrose [Glucose Gel] 40 % gel 10 g PO Q15M PRN (Reason: hypoglycemia) Rx Instructions: until symptoms of low blood sugar are controlled buspirone 5 mg tablet 7.5 mg PO TID aluminum-magnesium hydroxide 225-200 mg/5 mL suspension 30 ml PO Q4H PRN (Reason: UPSET STOMACH) budesonide 1 mg/2 mL suspension for nebulization 0.5 mg inhalation BID insulin glargine [Basaglar KwikPen U-100 Insulin] 100 unit/mL (3 mL) insulin pen 32 unit subcut QHS Rx Instructions: daily at bedtime isosorbide mononitrate 60 mg tablet extended release 24 hr 60 mg PO DAILY Qty: 90 3RF nitroglycerin 0.4 mg tablet, sublingual 0.4 mg SUBLINGUAL Q5-15M PRN (Reason: Pain) Qty: 30 0RF atorvastatin 80 mg tablet 80 mg PO QHS clopidogrel 75 mg tablet 75 mg PO DAILY furosemide [Lasix] 20 mg tablet 20 mg PO BID metoprolol tartrate 25 mg tablet 12.5 mg PO BID Rx Instructions: sucralfate [Carafate] 1 gram tablet 1 g PO TID PRN (Reason: acid reflux) Qty: 20 0RF ondansetron HCl 4 mg tablet 4 mg PO Q6H PRN (Reason: nausea and vomiting) Qty: 14 0RF acetaminophen 500 mg Tablet 1,000 mg PO Q8 7 Days Qty: 0 0RF insulin lispro [Humalog KwikPen Insulin] 100 unit/mL Insulin Pen 2 - 11 unit subcut ACHS Qty: 0 0RF Protocol: 4. Sliding Scale Insulin High-Med Dosing Condition: 150-199 mg/dl = 2 units Condition: 200-259 mg/dl = 4 units Condition: 260-324 mg/dl = 6 units Condition: 325-374 mg/dl = 8 units Condition: 375-409 mg/dl = 10 units Condition: 410-449 mg/dl = 11 units Condition: Greater than 449 call physician Protocol Text: - Use for Total Daily Dose of Insulin 56-80 units - Patient who are insulin resistant or septic HIGH MEDIUM DOSING ALGORITHM losartan 25 mg tablet 50 mg PO DAILY 30 Days Qty: 0 0RF prednisone 10 mg tablet 10 mg PO DAILY trazodone 50 mg tablet 25 mg PO QHS potassium chloride 20 mEq tablet extended release 20 meq PO BID bisacodyl [Dulcolax (bisacodyl)] 5 mg tablet,delayed release (DR/EC) 5 mg PO QHS PRN (Reason: constipation) 30 Days Qty: 30 3RF (DME) pen needle, diabetic 32 gauge x 5/32" needle See Rx Instructions .ROUTE .MEDSUPPLY Qty: 50 0RF Rx Instructions: 4x/day (DME) blood-glucose meter [True Metrix Glucose Meter] Mis See Rx Instructions .Route Qty: 1 0RF Rx Instructions: As directed (DME) True Metrix Glucose Test Strip Strip See Rx Instructions .Route Qty: 100 7RF Rx Instructions: tid albuterol sulfate 90 mcg/actuation HFA aerosol inhaler 2 puff INHALATION Q6H PRN (Reason: shortness of breath or wheezing) Qty: 18 3RF ipratropium-albuterol 0.5 mg-3 mg(2.5 mg base)/3 mL solution for nebulization 3 ml INHALATION Q4H PRN PRN (Reason: SOB &/OR WHEEZING) Qty: 180 6RF (DME) FreeStyle Tanika 2 Sensor Kit See Rx Instructions .ROUTE .MEDSUPPLY Qty: 2 3RF Rx Instructions: As directed (DME) FreeStyle Tanika 2 [place] Misc See Rx Instructions .ROUTE .MEDSUPPLY Qty: 1 0RF Rx Instructions: As directed Primary Care Provider: Billy Madera Referrals: Billy Madera MD [Primary Care Provider] - Disposition Disposition: Acute Care Hospital [facility] What to do if you have Problems For any increased pain, shortness of breath, bleeding, nausea or vomiting, chestpain, or any unexpected problems, contact your Primary Care Provider. Call [facility] ([phone]) or report to the closest Emergency Room. Call 911 if necessary. 08/22/23 1023 <Electronically signed by Sera Aguilar DO> Cosigner Signature (if applicable): CC: Dr. Billy Madera MD ~ Signed [facility] Work Phone: [phone] Discharge summary Author Enid Hernandez [facility] June 04, 2023 4:38pm Note Date/Time June 04, 2023 3 :37pm [facility] Medical Records Department [address] [place] [id number] Discharge Summary 06/04/23 1537 MR#: [id number] Acct: [id number] Name: JEANNA VARGAS Rep #:[id number] : 1950 72 From: Enid Hernandez MD PCP: Dr. Billy Madera MD Status:A DM IN Location: ICU ICU01-1 Providers Date of Admission: 05/30/23 Date of Discharge: 06/04/23 Primary Care Physician: Dr. Billy Madera MD Consultations 05/30/23 23:56 Consult: Women Designer / Pulmonary Medicine Routine Consulting Provider: [facility] Reason for Consult: CODE Blue, resp arrest after CTPA.COPD exa EMERGENT Consult: No Notified: Yes Date Notified: 05/30/23 Time Notified: 23:31 Method of Notification: Text 06/01/23 09:29 Consult: Cardiology Routine Consulting Provider: Kenny Ibarra Reason for Consult: s/p cardiac arrest, likely 2/2 anaphylaxis but cannot r/ocardiac cause EMERGENT Consult: No Notified: Yes Date Notified: 06/01/23 Time Notified: 09:29 Method of Notification: Answering Service Reason For Visit: S/P CODE BLUE AFTER CTPA Diagnosis Discharge Diagnosis (1) Atrial fibrillation with rapid ventricular response: Status: Acute Code(s): I48.91 - Unspecified atrial fibrillation (2) Cardiac arrest with pulseless electrical activity: Status: Acute Code(s): I46.9 - Cardiac arrest, cause unspecified (3) Anaphylaxis: Status: Acute Code(s): T78.2XXA - Anaphylactic shock, unspecified, initial encounter Qualifiers: Encounter type: initial encounter Qualified Code(s): T78.2XXA - Anaphylactic shock, unspecified, initial encounter (4) Respiratory failure: Status: Acute Code(s): J96.90 - Respiratory failure, unspecified, unspecified whether with hypoxia or hypercapnia Qualifiers: Chronicity: acute on chronic Respiratory failure complication: hypercapnia Qualified Code(s): J96.22 - Acute and chronic respiratory failure with hypercapnia Plan #Acute cardiopulmonary arrest after CTA chest concern for possible anaphylactic reaction from IV contrast #Acute combined respiratory failure on chronic hypoxic respiratory failure 2/2 anaphylaxis with chronic COPD #Transient A-fib after ACLS with history of CAD status post PCI ostial diagonal and mid LAD 12/26/2018 : Patient has been in sinus rhythm during previous #Chronic Diastolic CHF: #Diabetes mellitus type II: #Hypertensive urgency #Hyperlipidemia: #Chronic normocytic anemia #Anxiety and depression: #Morbid obesity #Other comorbidities include obstructive sleep apnea, former smoker: Medications at Discharge Home Medications Handicap Placard #1 ea 12/12/20 bisacodyl 5 mg tablet,delayed release (Dulcolax (bisacodyl)) 5 mg PO QHS PRN constipation 30 days #30 tabs 11/13/21 pen needle, diabetic 32 gauge x 5/32" #50 ea 02/11/22 blood sugar diagnostic (True Metrix Glucose Test Strip) #100 ea 09/11/22 blood-glucose meter (True Metrix Glucose Meter) #1 ea 09/11/22 albuterol sulfate 90 mcg/actuation aerosol inhaler 2 puff inhalation Q6H PRN shortness of breath or wheezing #18 grams 11/06/22 ipratropium 0.5 mg-albuterol 3 mg (2.5 mg base)/3 mL nebulization soln 3 ml inhalation Q4H PRN PRN SOB &/OR WHEEZING #180 mL 11/10/22 cane #1 ea 11/16/22 citalopram 40 mg tablet 40 mg PO QHS depression #90 tabs 11/16/22 risperidone 1 mg tablet 1 mg PO QHS anxiety #90 tabs 12/07/22 isosorbide mononitrate 60 mg tablet,extended release 24 hr 60 mg PO DAILY BP #90tabs 12/26/22 nitroglycerin 0.4 mg sublingual tablet 0.4 mg sublingual Q5-15M PRN Pain #30 tabs 12/26/22 flash glucose sensor ([employer] Tanika 2 Sensor kit) #2 ea 01/06/23 atorvastatin 80 mg tablet 80 mg PO QHS cholesterol 01/26/23 clopidogrel 75 mg tablet 75 mg PO DAILY blood thinner 01/26/23 furosemide 20 mg tablet (Lasix) 20 mg PO DAILY diuretic 01/26/23 metoprolol tartrate 25 mg tablet 12.5 mg PO BID blood pressure 01/26/23 flash glucose scanning reader ([employer] Tanika 2 [place]) #1 ea 03/23/23 ondansetron HCl 4 mg tablet 4 mg PO Q6H PRN nausea and vomiting #14 tabs 04/16/23 sucralfate 1 gram tablet (Carafate) 1 g PO TID PRN acid reflux #20 tabs 04/16/23 pantoprazole 40 mg tablet,delayed release 40 mg PO BID stomach #180 tabs 05/20/23 potassium chloride 20 mEq tablet,extended release 20 meq PO DAILY #3 tabs 05/25/23 acetaminophen 500 mg tablet 1,000 mg (2 x 500 mg) PO Q8 7 days #0 tabs 06/04/23 alprazolam 0.25 mg tablet 0.25 mg PO QHS anxiety 3 days #3 tabs 06/04/23 insulin glargine 100 unit/mL (3 mL) subcutaneous pen (Basaglar KwikPen U-100 Insulin) 30 unit (0.3 mL) subcut BID diabetic managment #42 mL 06/04/23 insulin lispro 100 unit/mL subcutaneous pen (Humalog KwikPen (U-100) Insulin) 2 - 11 unit subcut ACHS #0 mL 06/04/23 losartan 25 mg tablet 50 mg (2 x 25 mg) PO DAILY blood pressure 30 days #0 tabs 06/04/23 Hospital Course Procedures CPR performed, Intubation and Transthoracic echo Summary of Care Provided Minutes Spent on Discharge: 40 Hospital Course: Patient is a 72-year-old female with history of heart failure with preserved ejection fraction, hypertension, MARK on BiPAP, type 2 diabetes mellitus, psoriasis, COPD who presented to [facility] 05/30/2023 with shortness of breath and hypoxia after being discharged earlier in the day. She is on 4 L of O2 at baseline however at home in the evening her O2 dropped to 80sand she was brought in by EMS and placed on nonrebreather at 12 L. Her admission prior to representation was for COPD exacerbation and pneumonia and she was discharged on doxycycline and prednisone. On her representation blood pressure was 226/96 with respiratory rate of 26 and heart rate of 132. She had a D-dimer of 0.72 and was taken for a CTA. During the CTA she became more shortof breath and her O2 sat dropped and she lost pulse. CPR was initiated and CODEBLUE called. During CPR rhythm was PEA and she got 3 doses of epinephrine and it lasted for 14 minutes with ROSC. She was intubated during code and started on propofol drip. Had A-fib after ROSC and was converted with 300 J defibrillation into normal sinus rhythm and transferred to ICU. It was felt thatshe possibly had an anaphylactic reaction due to the IV contrast with the CTA. She was placed on IV steroids and did have some residual tongue and throat swelling but this improved and ultimately patient was extubated 06/01/2023. Steroids d/c'd 06/03. Cardiology consulted given CODE BLUE with somewhat unclear etiology despite suspicions but echo normal, troponin unremarkable, ultimately deemed noncardiac and no further cardiac work-up indicated. Patient improved aside from chest wall pain post CPR functionally somewhat declined and was agreeable to SNF. Ultimately discharged to skilled facility in stable condition. Discharge instruction is followed: -Outpatient sleep study recommended -Your prednisone and antibiotics have been discontinued, these are completed -Your insulin has been adjusted to 30 units twice daily with sliding scale insulin only for meals -Your losartan was increased to 50 mg daily -Please call your primary care provider's office upon discharge to schedule a hospital follow up within 1 week. -For any concerning signs or symptoms please call 911 or proceed to the nearest emergency department Physical Exam Narrative General: Alert, oriented, no apparent distress HEENT: Atraumatic, normocephalic Eyes: Anicteric, normal conjunctiva, extraocular movements grossly intact Neck: Supple Respiratory: Air movement better today, resting comfortably Cardiovascular: Regular rate and rhythm GI: Soft, nontender, nondistended Extremities: No edema Musculoskeletal: Moving all extremities Neuro: No overt focal neurological deficits Skin: No rashes appreciated, has skin tags in thickened nails Psych: Cooperative, less anxious Weight / BMI Weight Weight: 98.9 kg Body Mass Index (BMI) 40.1 ABG / Lab / Microbiology Data 06/04/23 03:50 06/04/23 03:50 Laboratory: Laboratory Results - last 24 hr 06/03/23 16:35: POC Glucose 307 H 06/03/23 20:46: POC Glucose 296 H 06/04/23 03:50: WBC 15.8 H, RBC 4.13 L, Hgb 11.8 L, Hct 39.0, MCV 94.4, MCH 28.6, MCHC 30.3 L, RDW Std Deviation 43.3, RDW Coeff of Malcom 12.6, Plt Count 373,MPV 10.6, Immature Gran % (Auto) 0.900, Neut % (Auto) 71.7 H, Lymph % (Auto) 18.9 L, [place] % (Auto) 7.2, Eos % (Auto) 1.0, Baso % (Auto) 0.3, Absolute Neuts (auto) 11.3 H, Absolute Lymphs (auto) 2.98, Nucleated RBC % 0, Sodium 136, Potassium 3.9, Chloride 104, Carbon Dioxide 27.0, Anion Gap 5, BUN 39 H, Creatinine 0.98, Estim Creat Clear Calc 39.73, Est GFR (MDRD) Af Amer 72, Est GFR (MDRD) Non-Af 60, BUN/Creatinine Ratio 39.9 H, Glucose 90, Calcium 8.9, Total Bilirubin 0.40, AST 19, ALT 40, Alkaline Phosphatase 111, Total Protein 6.8, Albumin 3.3, Globulin 3.5, Albumin/Globulin Ratio 0.9 06/04/23 08:38: POC Glucose 88 06/04/23 10:48: POC Glucose 187 H Microbiology: Microbiology 05/31/23 00:20 Sputum, Induced/Lukens Gram Stain - Final 05/31/23 00:20 Sputum, Induced/Lukens Respiratory Culture - Final Presumptive C albicans D/C Instructions Discharge Diet: - (Direct supervision at meals, limit distractions) Discharge Activity: - (Per physical therapy recommendations) Meaningful Use Info Meaningful Use Diagnoses (Choose all that apply): None applicable Discharge Plan Admission Admit Date/Time: 05/30/23 23:15 Primary Reason for Your Visit: Shortness of breath Attending Provider: Enid Hernandez Primary Care Provider: Billy Madera Consulting Providers: Haroon Nuno; Korey Fraser; Inez Bello; Dimitry Olmedo;Chapito Trejo; Michelle Givens NP; Nico Sweet; Kenny Ibarra Instructions Patient Instructions: ED ADVERSE DRUG REACTION Allergic, ED Anaphylaxis Additional Instructions / Restrictions: DISCHARGE INSTRUCTIONS PLEASE READ *Please take this with you to your next doctors appointment* -Outpatient sleep study recommended -Your prednisone and antibiotics have been discontinued, these are completed -Your insulin has been adjusted to 30 units twice daily with sliding scale insulin only for meals -Your losartan was increased to 50 mg daily -Please call your primary care provider's office upon discharge to schedule a hospital follow up within 1 week. -For any concerning signs or symptoms please call 911 or proceed to the nearest emergency department Discharge Orders/Prescriptions Prescriptions: New acetaminophen 500 mg Tablet 1,000 mg PO Q8 7 Days Qty: 0 0RF insulin lispro [Humalog KwikPen Insulin] 100 unit/mL Insulin Pen 2 - 11 unit subcut ACHS Qty: 0 0RF Protocol: 4. Sliding Scale Insulin High-Med Dosing Condition: 150-199 mg/dl = 2 units Condition: 200-259 mg/dl = 4 units Condition: 260-324 mg/dl = 6 units Condition: 325-374 mg/dl = 8 units Condition: 375-409 mg/dl = 10 units Condition: 410-449 mg/dl = 11 units Condition: Greater than 449 call physician Protocol Text: - Use for Total Daily Dose of Insulin 56-80 units - Patient who are insulin resistant or septic HIGH MEDIUM DOSING ALGORITHM Continued (DME) Handicap Placard See Rx Instructions .ROUTE .MEDSUPPLY Qty: 1 0RF Rx Instructions: As directed, length of time 3 years citalopram 40 mg tablet 40 mg PO QHS Qty: 90 3RF (DME) cane Device See Rx Instructions .Route Qty: 1 0RF Rx Instructions: As directed pantoprazole 40 mg tablet,delayed release (DR/EC) 40 mg PO BID Qty: 180 2RF isosorbide mononitrate 60 mg tablet extended release 24 hr 60 mg PO DAILY Qty: 90 3RF nitroglycerin 0.4 mg tablet, sublingual 0.4 mg SUBLINGUAL Q5-15M PRN (Reason: Pain) Qty: 30 0RF atorvastatin 80 mg tablet 80 mg PO QHS clopidogrel 75 mg tablet 75 mg PO DAILY furosemide [Lasix] 20 mg tablet 20 mg PO DAILY metoprolol tartrate 25 mg tablet 12.5 mg PO BID Rx Instructions: sucralfate [Carafate] 1 gram tablet 1 g PO TID PRN (Reason: acid reflux) Qty: 20 0RF ondansetron HCl 4 mg tablet 4 mg PO Q6H PRN (Reason: nausea and vomiting) Qty: 14 0RF alprazolam 0.25 mg tablet 0.25 mg PO QHS 3 Days Qty: 3 0RF potassium chloride 20 mEq tablet extended release 20 meq PO DAILY Qty: 3 0RF bisacodyl [Dulcolax (bisacodyl)] 5 mg tablet,delayed release (DR/EC) 5 mg PO QHS PRN (Reason: constipation) 30 Days Qty: 30 3RF (DME) pen needle, diabetic 32 gauge x 5/32" needle See Rx Instructions .ROUTE .MEDSUPPLY Qty: 50 0RF Rx Instructions: 4x/day (DME) blood-glucose meter [True Metrix Glucose Meter] Misc See Rx Instructions .Route Qty: 1 0RF Rx Instructions: As directed (DME) True Metrix Glucose Test Strip Strip See Rx Instructions .Route Qty: 100 7RF Rx Instructions: tid albuterol sulfate 90 mcg/actuation HFA aerosol inhaler 2 puff INHALATION Q6H PRN (Reason: shortness of breath or wheezing) Qty: 18 3RF ipratropium-albuterol 0.5 mg-3 mg(2.5 mg base)/3 mL solution for nebulization 3 ml INHALATION Q4H PRN PRN (Reason: SOB &/OR WHEEZING) Qty: 180 6RF risperidone 1 mg tablet 1 mg PO QHS Qty: 90 1RF (DME) FreeStyle Tanika 2 Sensor Kit See Rx Instructions .ROUTE .MEDSUPPLY Qty: 2 3RF Rx Instructions: As directed (DME) FreeStyle Tanika 2 [place] Misc See Rx Instructions .ROUTE .MEDSUPPLY Qty: 1 0RF Rx Instructions: As directed Changed losartan 25 mg tablet 50 mg PO DAILY 30 Days Qty: 0 0RF insulin glargine [Basaglar KwikPen U-100 Insulin] 100 unit/mL (3 mL) insulin pen 30 unit subcut BID Qty: 42 3RF Rx Instructions: daily at bedtime Discontinued doxycycline hyclate 100 mg tablet 100 mg PO BID Qty: 10 0RF prednisone 20 mg tablet 40 mg PO DAILY Qty: 10 0RF insulin lispro [Humalog KwikPen Insulin] 100 unit/mL insulin pen 20 unit SC TID Qty: 72 3RF Rx Instructions: Hold if glucose less than 130 mg/dl Referrals / Follow Up: Billy Madera MD [Primary Care Provider] - Within 1 Week Disposition Disposition (needs filled in before D/C Order can be placed): [facility] Charges/Coding Visit Charges Inpatient E&M: 42173 Disch Hosp >30min 06/04/23 1638 <Electronically signed by Enid Hernandez MD> Cosigner Signature (if applicable): CC: Dr. Billy Madera MD; Dr. Enid Hernandez MD~ Signed [facility] Work Phone: 1(139) 143-318710-27-2023 Discharge summary Author Enid Hernandez [facility] June 04, 2023 3:37pm Note Date/Time June 04, 2023 3 :28pm [facility] Medical Records Department [address] [place] [address] Transfer to Extended Care MR#: [id number] Acct: [id number] Name: JEANNA VARGAS Rep #:[id number] : 1950 72 From: Enid Hernandez MD PCP: Dr. Billy Madera MD Status:A DM IN Certification of patient admission REQUIRED AT TIME OF ADMISSION. I CERTIFY THAT POST-HOSPITAL ECF SERVICES ARE REQUIRED TO BE GIVEN ON AN IN-PATIENT BASIS BECAUSE OF THE ABOVE NAMED PATIENT'S NEED FOR LONG TERM CARE ON A CONTINUING BASIS FOR THE CONDITION(S) FOR WHICH HE/SHE WAS RECEIVING IN-PATIENT HOSPITAL SERVICES PRIOR TO HIS/HER TRANSFER TO THE ECF. 06/04/23 1537<Electronically signed by Enid Hernandez MD> Diet Diet Order/Speech Therapy: 06/02/23 09:29 Carb [Diet: Carbohydrate Controlled] Food consistency:: Regular Liquid Consistency:: Regular/Thin Is pt able to select menu?: No Diet Comments: Distant Supervision Routine Orders/Code Status Suppository Type: Dulcolax 10mg Suppository Frequency: Daily PRN O2 Liters per Minute: 4 O2 Frequency: Continuous Keep PO Greater than or Equal to (%): 92 Code Status: Full Code Therapies Physical Therapy: Eval and Treat Occupational Therapy: Eval and Treat Speech Therapy: Eval and Treat Problem/Diagnosis (1) Atrial fibrillation with rapid ventricular response: Status: Acute Code(s): I48.91 - Unspecified atrial fibrillation (2) Cardiac arrest with pulseless electrical activity: Status: Acute Code(s): I46.9 - Cardiac arrest, cause unspecified (3) Anaphylaxis: Status: Acute Code(s): T78.2XXA - Anaphylactic shock, unspecified, initial encounter (4) Respiratory failure: Status: Acute Code(s): J96.90 - Respiratory failure, unspecified, unspecified whether with hypoxia or hypercapnia Plan #Acute cardiopulmonary arrest after CTA chest concern for possible anaphylactic reaction from IV contrast #Acute combined respiratory failure on chronic hypoxic respiratory failure 2/2 anaphylaxis with chronic COPD #Transient A-fib after ACLS with history of CAD status post PCI ostial diagonal and mid LAD 12/26/2018 : Patient has been in sinus rhythm during previous #Chronic Diastolic CHF: #Diabetes mellitus type II: #Hypertensive urgency #Hyperlipidemia: #Chronic normocytic anemia #Anxiety and depression: #Morbid obesity #Other comorbidities include obstructive sleep apnea, former smoker: Patient is a 72-year-old female with history of heart failure with preserved ejection fraction, hypertension, MARK on BiPAP, type 2 diabetes mellitus, psoriasis, COPD who presented to [facility] 05/30/2023 with shortness of breath and hypoxia after being discharged earlier in the day. She is on 4 L of O2 at baseline however at home in the evening her O2 dropped to 80sand she was brought in by EMS and placed on nonrebreather at 12 L. Her admission prior to representation was for COPD exacerbation and pneumonia and she was discharged on doxycycline and prednisone. On her representation blood pressure was 226/96 with respiratory rate of 26 and heart rate of 132. She had a D-dimer of 0.72 and was taken for a CTA. During the CTA she became more shortof breath and her O2 sat dropped and she lost pulse. CPR was initiated and CODEBLUE called. During CPR rhythm was PEA and she got 3 doses of epinephrine and it lasted for 14 minutes with ROSC. She was intubated during code and started on propofol drip. Had A-fib after ROSC and was converted with 300 J defibrillation into normal sinus rhythm and transferred to ICU. It was felt that she possibly had an anaphylactic reaction due to the IV contrast with the CTA. She was placed on IV steroids and did have some residual tongue and throatswelling but this improved and ultimately patient was extubated 06/01/2023. Steroids d/c'd 06/03. Cardiology consulted given CODE BLUE with somewhat unclear etiology despite suspicions but echo normal, troponin unremarkable, ultimately deemed noncardiac and no further cardiac work-up indicated. Patient improved aside from chest wall pain post CPR functionally somewhat declined and was agreeable to SNF. Ultimately discharged to skilled facility in stable condition. Allergies/Procedures Done in Hospital Allergies Iodinated Contrast Media Allergy (Severe, Verified 05/31/23 06:34) Anaphylaxis amoxicillin [Amoxicillin] Allergy (Intermediate, Verified 05/28/23 22:22) Rash hydrocodone Allergy (Intermediate, Verified 05/28/23 22:22) SWELLING gabapentin [From Neurontin] Allergy (Verified 05/28/23 22:22) Shortness of breath levofloxacin [From Levaquin] Allergy (Verified 05/28/23 22:22) Hives is allergic to the red dye in the pill form, states she is fine with the iv form. pseudoephedrine HCl [From Sudafed] Allergy (Verified 05/28/23 22:22) Shortness of breath red dye Allergy (Verified 05/28/23 22:22) Hives prednisone Adverse Reaction (Severe, Verified 05/28/23 22:22) mean mood clonazepam [From Klonopin] Adverse Reaction (Verified 05/28/23 22:22) Depression codeine Adverse Reaction (Verified 05/28/23 22:22) HEADACHE Procedures: Intubation and Transthoracic Echo Type of Care/Length of Stay Estimated LOS: Convalescent Care Less Than 30 days Type of Care Needed: Skilled Rehab Potential: Fair Prognosis: Fair Additional Orders/Day of Discharge Day of Discharge: 06/04/23 Dietary and Speech Recommendations Dietitian Recommendations/Changes: continue CHO controlled diet- texture/consistency modifications per APPEALS AND GENERALIST CLERK Discharge Plan Admission Admit Date/Time: 05/30/23 23:15 Primary Reason for Your Visit: Shortness of breath Attending Provider: Enid Hernandez Primary Care Provider: Billy Madera Consulting Providers: Haroon Nuno; Korey Fraser; Inez Bello; Dimitry Olmedo;Chapito Trejo; Michelle Givens NP; Nico Sweet; Kenny Ibarra Instructions Patient Instructions: ED ADVERSE DRUG REACTION Allergic, ED Anaphylaxis Additional Instructions / Restrictions: DISCHARGE INSTRUCTIONS PLEASE READ *Please take this with you to your next doctors appointment* -Outpatient sleep study recommended -Your prednisone and antibiotics have been discontinued, these are completed -Your insulin has been adjusted to 30 units twice daily with sliding scale insulin only for meals -Your losartan was increased to 50 mg daily -Please call your primary care provider's office upon discharge to schedule a hospital follow up within 1 week. -For any concerning signs or symptoms please call 911 or proceed to the nearest emergency department Discharge Orders/Prescriptions Prescriptions: New acetaminophen 500 mg Tablet 1,000 mg PO Q8 7 Days Qty: 0 0RF insulin lispro [Humalog KwikPen Insulin] 100 unit/mL Insulin Pen 2 - 11 unit subcut ACHS Qty: 0 0RF Protocol: 4. Sliding Scale Insulin High-Med Dosing Condition: 150-199 mg/dl = 2 units Condition: 200-259 mg/dl = 4 units Condition: 260-324 mg/dl = 6 units Condition: 325-374 mg/dl = 8 units Condition: 375-409 mg/dl = 10 units Condition: 410-449 mg/dl = 11 units Condition: Greater than 449 call physician Protocol Text: - Use for Total Daily Dose of Insulin 56-80 units - Patient who are insulin resistant or septic HIGH MEDIUM DOSING ALGORITHM Continued (DME) Handicap Placard See Rx Instructions .ROUTE .MEDSUPPLY Qty: 1 0RF Rx Instructions: As directed, length of time 3 years citalopram 40 mg tablet 40 mg PO QHS Qty: 90 3RF (DME) cane Device See Rx Instructions .Route Qty: 1 0RF Rx Instructions: As directed pantoprazole 40 mg tablet,delayed release (DR/EC) 40 mg PO BID Qty: 180 2RF isosorbide mononitrate 60 mg tablet extended release 24 hr 60 mg PO DAILY Qty: 90 3RF nitroglycerin 0.4 mg tablet, sublingual 0.4 mg SUBLINGUAL Q5-15M PRN (Reason: Pain) Qty: 30 0RF atorvastatin 80 mg tablet 80 mg PO QHS clopidogrel 75 mg tablet 75 mg PO DAILY furosemide [Lasix] 20 mg tablet 20 mg PO DAILY metoprolol tartrate 25 mg tablet 12.5 mg PO BID Rx Instructions: sucralfate [Carafate] 1 gram tablet 1 g PO TID PRN (Reason: acid reflux) Qty: 20 0RF ondansetron HCl 4 mg tablet 4 mg PO Q6H PRN (Reason: nausea and vomiting) Qty: 14 0RF alprazolam 0.25 mg tablet 0.25 mg PO QHS 3 Days Qty: 3 0RF potassium chloride 20 mEq tablet extended release 20 meq PO DAILY Qty: 3 0RF bisacodyl [Dulcolax (bisacodyl)] 5 mg tablet,delayed release (DR/EC) 5 mg PO QHS PRN (Reason: constipation) 30 Days Qty: 30 3RF (DME) pen needle, diabetic 32 gauge x 5/32" needle See Rx Instructions .ROUTE .MEDSUPPLY Qty: 50 0RF Rx Instructions: 4x/day (DME) blood-glucose meter [True Metrix Glucose Meter] Misc See Rx Instructions .Route Qty: 1 0RF Rx Instructions: As directed (DME) True Metrix Glucose Test Strip Strip See Rx Instructions .Route Qty: 100 7RF Rx Instructions: tid albuterol sulfate 90 mcg/actuation HFA aerosol inhaler 2 puff INHALATION Q6H PRN (Reason: shortness of breath or wheezing) Qty: 18 3RF ipratropium-albuterol 0.5 mg-3 mg(2.5 mg base)/3 mL solution for nebulization 3 ml INHALATION Q4H PRN PRN (Reason: SOB &/OR WHEEZING) Qty: 180 6RF risperidone 1 mg tablet 1 mg PO QHS Qty: 90 1RF (DME) FreeStyle Tanika 2 Sensor Kit See Rx Instructions .ROUTE .MEDSUPPLY Qty: 2 3RF Rx Instructions: As directed (DME) FreeStyle Tanika 2 [place] Misc See Rx Instructions .ROUTE .MEDSUPPLY Qty: 1 0RF Rx Instructions: As directed Changed losartan 25 mg tablet 50 mg PO DAILY 30 Days Qty: 0 0RF insulin glargine [Basaglar KwikPen U-100 Insulin] 100 unit/mL (3 mL) insulin pen 30 unit subcut BID Qty: 42 3RF Rx Instructions: daily at bedtime Discontinued doxycycline hyclate 100 mg tablet 100 mg PO BID Qty: 10 0RF prednisone 20 mg tablet 40 mg PO DAILY Qty: 10 0RF insulin lispro [Humalog KwikPen Insulin] 100 unit/mL insulin pen 20 unit SC TID Qty: 72 3RF Rx Instructions: Hold if glucose less than 130 mg/dl Referrals / Follow Up: Billy Madera MD [Primary Care Provider] - Within 1 Week Disposition Disposition (needs filled in before D/C Order can be placed): [facility] Facility (3) Anaphylaxis Qualifiers: Encounter type: initial encounter Qualified Code(s): T78.2XXA - Anaphylactic shock, unspecified, initial encounter (4) Respiratory failure Qualifiers: Chronicity: acute on chronic Respiratory failure complication: hypercapnia Qualified Code(s): J96.22 - Acute and chronic respiratory failure with hypercapnia 06/04/23 1537 <Electronically signed by Enid Hernandez MD> Cosigner Signature (if applicable): CC: AIR CREW SUPERVISOR-C Michelle Givens; Dr. Kenny Ibarra MD; Dr. Haroon Nuno MD; Dr. Korey Fraser DO; Dr. Billy Madera MD; Dr. Inez Bello MD; Dr. Dimitry Olmedo MD; Dr. Nico Sweet MD; Dr. Chapito Trejo MD ~ [facility] Work Phone: [phone] 930-939910-27-2023 Procedure [facility] 06-04-2023 Progress note Author Haroon Nuno [facility] June 04, 2023 11:25am Note Date/Time June 04, 2023 6 :37am [facility] Medical Records Department [address] [place] [address] Progress Note - Women Designer 06/04/23 0634 MR#: [id number] Acct: [id number] Name: JEANNA VARGAS Rep #:[id number] : 1950 72 From: Haroon Nuno MD PCP: Dr. Billy Madera MD Status:A DM IN Location: ICU ICU01-1 Assessment & Plan Assessment/Plan (1) Atrial fibrillation with rapid ventricular response: (2) Cardiac arrest with pulseless electrical activity: (3) Anaphylaxis: QUALIFIERS: Encounter type: initial encounter Qualified Code(s): T78.2XXA - Anaphylactic shock, unspecified, initial encounter (4) Respiratory failure: QUALIFIERS: Chronicity: acute on chronic Respiratory failure complication: hypercapnia Qualified Code(s): J96.22 - Acute and chronic respiratory failure with hypercapnia PLAN: Plan RECOMMENDATIONS: 1. Monitor off steroids 2. Continue aggressive control of blood pressure 3. Consider outpatient sleep study 4. Agree with reinitiation of baseline medications 5. Okay to discharge from my perspective. Follow-up in office as previouslyplanned IMPRESSIONS: 1. Acute on chronic combined respiratory failure secondary to cardiopulmonary arrest secondary to anaphylaxis Patient does have significant underlying lung disease, but likely had an element of anaphylaxis leading to an arrest. It is unclear if this is secondaryto a respiratory or cardiac etiology. Patient appears to have responded well tocurrent therapy. Patient tolerated extubation well. Patient remains on BiPAP with sleep. Cultures are showing only Shira, so antibiotics were discontinuedand patient has done well. There was a question of upper lobe infiltrates, but there has been no decompensation off of antibiotics. Patient does not appear tohave any anoxic injury associated with this event. Patient can likely follow-upin our office as previously planned. No 2-week AIR CREW SUPERVISOR appointment necessary 2. Hypertensive emergency/anxiety disorder Patient with significant decompensation when systolics were greater than 190. Unclear if this is related to anxiety versus having anxiety as a result ofher pulmonary edema. Patient now back on baseline p.o. regimen. May need titration of medications moving forward. Cardiology is not planning any acute interventions 3. A-fib with RVR status post cardioversion Patient noted to have A-fib with RVR on ROSC. Patient did receive a cardioversion initially, but A-fib has not recurred. This would exacerbate patient's underlying diastolic heart failure, but x-ray appears to show patient is tolerating relatively well. Patient is back on her baseline medications. Cardiology is suggesting that systemic anticoagulation would not be indicated atthis time. 3. 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 Patient has had significant issues with anxiety in the past. Patient has been tolerating BiPAP. Could consider obtaining a sleep study as an outpatient for evaluation. Subjective Subjective Patient did well overnight. Patient continues to report some mild chest pain, but states this is slowly improving. There has been no recurrence of A-fib. Patient reportedly to go to [facility] later today. Objective Data Objective Data Vital Signs: Vital Signs Temp Pulse Resp BP Pulse Ox O2 Del Method O2 Flow Rate 36.6 C 58 L 22 H 121/53 H 100 Nasal Cannula 4 06/04/23 04:45 06/04/23 04:45 06/04/23 04:45 06/04/23 04:45 06/04/23 04:45 06/04/23 04:45 06/04/23 04:45 FiO2 4 06/04/23 04:00 Oxygen Flow Rate (L/min) 4 Oxygen Delivery Method Nasal Cannula Weight: 98.9 kg Body Mass Index (BMI) 40.1 Intake & Output: Intake and Output for Last 24 Hours 06/02/23 06/03/23 06/04/23 23:59 23:59 23:59 Intake Total 760 / 760 60 / 60 Output Total 540 / 540 900 / 900 200 / 200 Balance 220 / 220 -840 / -840 -200 / -200 Lab / Micro Data Attestation: I reviewed the patient's lab results. 06/04/23 03:50 06/04/23 03:50 Labs: Laboratory Results - last 24 hr 06/03/23 09:27: POC Glucose 193 H 06/03/23 16:35: POC Glucose 307 H 06/03/23 20:46: POC Glucose 296 H 06/04/23 03:50: WBC 15.8 H, RBC 4.13 L, Hgb 11.8 L, Hct 39.0, MCV 94.4, MCH 28.6, MCHC 30.3 L, RDW Std Deviation 43.3, RDW Coeff of Malcom 12.6, Plt Count 373,MPV 10.6, Immature Gran % (Auto) 0.900, Neut % (Auto) 71.7 H, Lymph % (Auto) 18.9 L, Cooke % (Auto) 7.2, Eos % (Auto) 1.0, Baso % (Auto) 0.3, Absolute Neuts (auto) 11.3 H, Absolute Lymphs (auto) 2.98, Nucleated RBC % 0, Sodium 136, Potassium 3.9, Chloride 104, Carbon Dioxide 27.0, Anion Gap 5, BUN 39 H, Creatinine 0.98, Estim Creat Clear Calc 39.73, Est GFR (MDRD) Af Amer 72, Est GFR (MDRD) Non-Af 60, BUN/Creatinine Ratio 39.9 H, Glucose 90, Calcium 8.9, Total Bilirubin 0.40, AST 19, ALT 40, Alkaline Phosphatase 111, Total Protein 6.8, Albumin 3.3, Globulin 3.5, Albumin/Globulin Ratio 0.9 Micro: Microbiology 05/31/23 00:20 Sputum, Induced/Lukens Gram Stain - Final 05/31/23 00:20 Sputum, Induced/Lukens Respiratory Culture - Final Presumptive C albicans Rhythm Strip Rhythm Strip: Sinus Rhythm Rate: 58 Ectopy: None Physical Exam Const alert, oriented x3 and no apparent distress Constitutional Narrative: RASS 0 General Appearance: cooperative, comfortable, well kempt and well developed Nutritional Appearance: morbidly obese HEENT normocephalic, head/scalp atraumatic, hearing grossly normal bilaterally and moist oral mucous membranes Eyes PERRL, EOMs intact bilaterally and conjunctivae normal Eyes Narrative: No scleral icterus. Glasses not in place. Neck no lymphadenopathy and supple Neck Narrative: Trachea midline, no thyroid enlargement Chest inspection of chest normal Resp normal respiratory effort, no retractions and no use of accessory muscles Resp Narrative: Off BiPAP Auscultation: Negative for rales, rhonchi or wheezes Cardio regular rate, regular rhythm, S1 normal heart sound, S2 normal heart sound, no murmurs, no rub, no gallops and no clicks GI normal to inspection, nondistended, normoactive bowel sounds, soft to palpation and non-tender Extremity no clubbing, cyanosis or edema Extremity Narrative: Pedal pulses are 2+, onychomycosis bilateral lower extremities Skin no rashes or lesions noted, no wounds, skin turgor normal and no jaundice Neuro CN's II-XII intact bilaterally, moves all extremities and no focal motor deficits Neuro Narrative: Very minimal generalized weakness with proximal musculature being weaker than distal Speech: speech normal Psych cooperative and affect normal Charges/Coding Visit Charges Inpatient E&M: 88033 Subs Hosp L2 06/04/23 1125 <Electronically signed by Haroon Nuno MD> Cosigner Signature (if applicable): CC: ~ Signed [facility] Work Phone: 1([phone]) 639-120410-26-2023 Progress note Author Enid Hernandez [facility] June 03, 2023 4:49pm Note Date/Time June 03, 2023 4 :49pm [facility] Medical Records Department [address] [place] [address] Progress Note - Hospitalist 06/03/23 1644 MR#: [id number] Acct: [id number] Name: JEANNA VARGAS Rep #:[id number] : 1950 72 From: Enid Hernandez MD PCP: Dr. Billy Madera MD Status:A DM IN Location: ICU ICU01-1 Reason for Visit Reason for Visit: Diagnoses Cardiac arrest, cause unspecified (05/30/23) Unspecified atrial fibrillation (05/30/23) Pneumonia, unspecified organism (05/30/23) Chronic obstructive pulmonary disease with (acute) exacerbation (05/30/23) Acute and chronic respiratory failure with hypercapnia (05/30/23) Anaphylactic shock, unspecified, initial encounter (05/30/23) Personal history of other endocrine, nutritional and metabolic disease (05/30/23) Personal history of other diseases of the circulatory system (05/30/23) Subjective Subjective Patient still feeling better somewhat from a respiratory standpoint, resting in bed comfortably Objective Data Objective Data Vital Signs: Vital Signs Temp Pulse Resp BP Pulse Ox O2 Del Method O2 Flow Rate 97.8 F 62 26 H 145/64 H 93 Nasal Cannula 94 06/03/23 10:08 06/03/23 15:24 06/03/23 15:24 06/03/23 10:08 06/03/23 11:56 06/03/23 11:31 06/03/23 12:10 FiO2 30 06/03/23 06:56 Oxygen Flow Rate (L/min) 94 Oxygen Delivery Method Nasal Cannula Weight: 99.1 kg Body Mass Index (BMI) 40.1 Intake & Output: Intake and Output for Last 24 Hours 06/01/23 06/02/23 06/03/23 23:59 23:59 23:59 Intake Total 173.1 / 173.1 760 / 760 60 / 60 Output Total 950 / 1150 540 / 540 600 / 600 Balance -776.9 / -976.9 220 / 220 -540 / -540 Lab / Micro Data 06/03/23 03:52 06/03/23 03:52 Labs: Laboratory Results - last 24 hr 06/02/23 17:00: POC Glucose 289 H 06/02/23 20:44: POC Glucose 237 H 06/03/23 03:52: WBC 14.7 H, RBC 3.68 L, Hgb 10.6 L, Hct 34.1 L, MCV 92.7, MCH 28.8, MCHC 31.1 L, RDW Std Deviation 43.0, RDW Coeff of Malcom 12.7, Plt Count 332,MPV 10.6, Immature Gran % (Auto) 1.300 H, Neut % (Auto) 86.4 H, Lymph % (Auto) 6.4 L, Cooke % (Auto) 5.6, Eos % (Auto) 0.0, Baso % (Auto) 0.3, Absolute Neuts (auto) 12.7 H, Absolute Lymphs (auto) 0.94, Nucleated RBC % 0, Sodium 137, Potassium 4.4, Chloride 104, Carbon Dioxide 29.0, Anion Gap 4 L, BUN 41 H, Creatinine 0.83, Estim Creat Clear Calc 46.91, Est GFR (MDRD) Af Amer 87, Est GFR (MDRD) Non-Af 72, BUN/Creatinine Ratio 49.5 H, Glucose 214 H, Calcium 8.8, Total Bilirubin 0.40, AST 21, ALT 41, Alkaline Phosphatase 101, Total Protein 6.1 L, Albumin 3.1 L, Globulin 3.0, Albumin/Globulin Ratio 1.0 06/03/23 09:27: POC Glucose 193 H Micro: Microbiology 05/31/23 00:20 Sputum, Induced/Lukens Gram Stain - Final 05/31/23 00:20 Sputum, Induced/Lukens Respiratory Culture - Final Presumptive C albicans Rhythm Strip Rhythm Strip: Sinus Rhythm Rate: 60 Ectopy: None Physical Exam Narrative General: Alert, oriented, no apparent distress HEENT: Atraumatic, normocephalic Eyes: Anicteric, normal conjunctiva, extraocular movements grossly intact Neck: Supple Respiratory: Air movement somewhat better today, resting comfortably Cardiovascular: Regular rate and rhythm GI: Soft, nontender, nondistended Extremities: No edema Musculoskeletal: Moving all extremities Neuro: No overt focal neurological deficits Skin: No rashes appreciated, has skin tags in thickened nails Psych: Cooperative, appears less anxious Assessment & Plan Assessment/Plan (1) Atrial fibrillation with rapid ventricular response: (2) Cardiac arrest with pulseless electrical activity: (3) COPD exacerbation: PLAN: Plan D/c'd on the morning of presentation after admit for aceopd and pneumonia. [id number] female came to ED after discharge with increased respiratory distress, tachypnea and hypoxia and then CODE BLUE blue after CTA chest, successfully ROSC and then admitted in ICU. #Acute cardiopulmonary arrest after CTA chest concern for possible anaphylactic reaction from IV contrast: Patient is being admitted in ICU. In her allergy list it is mention prednisone causes some mood changes which is known side effect of prednisone/steroid and hives with red dye. ER physician also said patient tongue was swollen and redness of the skin which improved later in the ED. Continue IV Solu-Medrol. Patient is intubated. Had successful ACLS/BLS lasted for 14 minutes with 3 doses of epinephrine. ABG 7.18/68/391 bicarb 28. Bicarb in BMP is 13. Women Designer consulted -05/31: Remains intubated in ICU, echo pending, still some tongue swelling stillremain intubated today and reeval tomorrow -06/01: Extubated, monitor in ICU today, remains on steroids. Likely secondary to anaphylactic reaction but cannot rule out cardiac cause, echo pending, cardiology consulted now that patient awake and noted to be neurologically intact -06/02: Pt doing better from resp perspective. Antibiotics discontinued. Echo with EF of 65% and normal diastole for age with no wall motion abnormalities noted. Lending to anaphylaxis more likely cause of cardiac arrest. Cardiology evaluated. Continue present medications and resume home medications if patient able to pass swallow eval. Discussed with research tech, likely will be able toDC steroids tomorrow. Suspect chest pain is chest wall pain secondary to CPR, will add lidocaine patch, incentive spirometer -06/03: Steroids discontinued, continue supportive care, awaiting placement #Acute combined respiratory failure on chronic hypoxic respiratory failure due to acute exacerbation of COPD most likely due to bilateral lower lobes pneumoniaorganism unspecified, prior to present admission. : Continue bronchodilators DuoNeb every 4 hourly, IV Solu-Medrol, incentive/Pep after extubation, Mucinex. Prior to intubation, chest x-ray initially reviewed shows no acute infiltrate and reported normal. Started on IV ceftriaxone. Continue doxycycline. Patientcompleted azithromycin course. Patient just had COVID-19 PCR reported normal, respiratory panel normal and urinary antigens normal on 05/29/2023. She had COVID-vaccine and booster. Blood cultures x2 on 05/28 still pending. Patient follows Dr. Nuno in pulmonary clinic. -05/31: Patient remains on IV Solu-Medrol and nebs, on Rocephin and Doxy, chest x-ray prior to intubation with no acute infiltrate, ICU/pulm consulted, sputum sample obtained and pending -06/01: On steroids, extubated, continue monitoring in ICU, on empiric antibiotics but will likely be able to discontinue -06/02: Antibiotics discontinued, doing better from respiratory perspective. Remains on IV Methylpred, will likely be able to DC steroids tomorrow -06/03: Awaiting placement #Transient A-fib after ACLS with history of CAD status post PCI ostial diagonal and mid LAD 12/26/2018 : Patient has been in sinus rhythm during previous EKG andEKG done prior to CODE BLUE. It is normal sinus rhythm 92 bpm. After CODE BLUEit was A- fib 138 bpm, QTc 4 8 8 ms. QRS 84 ms. Repeat 2D echo as patient had cardiopulmonary arrest. Patient was successfully cardioverted to sinus rhythm after 300 J by ER physician. Currently in sinus rhythm. Patient was admitted for unstable anginain December 2022 and at that time cardiac cath was done for abnormal stress test. Cardiac cath showed ostial lesion of jailed diagonal branch, patent LAD stent therefore no PCI was done. Continue losartan, metoprolol, isosorbide and Plavix. -05/31: Monitoring on telemetry, may be able to forego anticoagulation given this was Viviana cardiac arrest -06/01: Echo pending, monitor telemetry, as above -06/02: Monitoring on telemetry, has not had further A-fib at this time, echo unremarkable #Chronic Diastolic CHF: 08/11/2021 echocardiogram with normal LV size, moderate concentric LVH, LV systolic function normal, EF 60%, pulmonary artery systolic pressure 40 mmHg, stage I diastolic dysfunction. Patient is on Lasix 20 mg along with potassium supplement continued. Patient not showing clinical features of acute heart failure exacerbation. -05/31: Monitor I's and O's, daily weights, continue Lasix -06/01: Weight stable thus far, continue to monitor, echo pending, remains on Lasix -06/02: On small dose of Lasix which is her home dose. BUN did increase over past 2 days's may need to consider holding Lasix pending volume and clinical status -06/03: Weight has been stable #Diabetes mellitus type II: Continue home dose of Lantus insulin and lispro insulin. Currently NPO. accu checks every 6 hourly with Humalog sliding scale coverage. Start tube feed in the morning if still not extubated. -05/31: Continue to monitor glucose and adjust as indicated -06/01: Sliding scale every 6 and insulin glargine 30 twice daily -06/02: Once swallow passed can change to ACHS per sliding scale -06/03: Adjusted medications #Hypertensive urgency - Blood pressure was high in the ED. BP still 156/97. Continue home regimen including metoprolol, losartan, isosorbide. -05/31: BP in ED 193/91, has improved to 136/57 this a.m., continue present management -06/02: Continue to adjust medications for aggressive blood pressure control -06/03: Increased losartan, resumed home meds #Hyperlipidemia: Continue home statin regimen. Fasting profile in December 2022 within normal limit LDL 44, HDL 55. Continue high intensity atorvastatin. #Chronic normocytic anemia: Admission hemoglobin 10.9 g. On baseline. Plateletcount normal. #Anxiety and depression: Hold risperidone, citalopram, alprazolam home regimen as patient is sedated on propofol and fentanyl drip -06/01: We will resume home medications #Morbid obesity -BMI 40.6 kg/m? -Complicates treatment, prognosis, outcomes -Recommend weight loss and lifestyle changes #Other comorbidities include obstructive sleep apnea, former smoker: DVT prophylaxis: Lovenox 40 mg subcu daily. Time spent in the patient's overall evaluation,decision-making process, review of diagnostic data, adjustment of management, discussion with other providers, nursing nursing and ancillary staff involved in patient's care documentation, 35minutes Charges/Coding Visit Charges Inpatient E&M: 64910 Subs Hosp L2 06/03/23 1649 <Electronically signed by Enid Hernandez MD> Cosigner Signature (if applicable): CC: ~ Signed [facility] Work Phone: [phone]) 194-267810-26-2023 Progress note Author Haroon Nuno [facility] June 03, 2023 1:57pm Note Date/Time June 03, 2023 7 :43am [facility] Medical Records Department [address] [place] [id number] Progress Note - Women Designer 06/03/23 0739 MR#: [id number] Acct: [id number] Name: JEANNA VARGAS Rep #:[id number] : 1950 72 From: Haroon Nuno MD PCP: Dr. Billy Madera MD Status:A DM IN Location: ICU ICU01-1 Assessment & Plan Assessment/Plan (1) Atrial fibrillation with rapid ventricular response: (2) Cardiac arrest with pulseless electrical activity: (3) Anaphylaxis: QUALIFIERS: Encounter type: initial encounter Qualified Code(s): T78.2XXA - Anaphylactic shock, unspecified, initial encounter (4) Respiratory failure: QUALIFIERS: Chronicity: acute on chronic Respiratory failure complication: hypercapnia Qualified Code(s): J96.22 - Acute and chronic respiratory failure with hypercapnia PLAN: Plan RECOMMENDATIONS: 1. Discontinue steroids 2. Continue aggressive control of blood pressure 3. Consider outpatient sleep study 4. Agree with reinitiation of baseline medications 5. Potential discharge later today if proper arrangements can be made IMPRESSIONS: 1. Acute on chronic combined respiratory failure secondary to cardiopulmonary arrest secondary to anaphylaxis Patient does have significant underlying lung disease, but likely had an element of anaphylaxis leading to an arrest. It is unclear if this is secondaryto a respiratory or cardiac etiology. Patient appears to have responded well tocurrent therapy. Patient tolerated extubation well. Patient remains on BiPAP with sleep. Cultures are showing only Shira, so antibiotics were discontinued. There was a question of upper lobe infiltrates, but there has been no decompensation off of antibiotics. Patient does not appear to have any anoxic injury associated with this event. 2. Hypertensive emergency/anxiety disorder Patient with significant decompensation when systolics were greater than 190. Unclear if this is related to anxiety versus having anxiety as a result ofher pulmonary edema. Patient now back on baseline p.o. regimen. May need titration of medications moving forward. Cardiology is not planning any acute interventions 3. A-fib with RVR status post cardioversion Patient noted to have A-fib with RVR on ROSC. Patient did receive a cardioversion initially, but A-fib has not recurred. This would exacerbate patient's underlying diastolic heart failure, but x-ray appears to show patient is tolerating relatively well. Patient is back on her baseline medications. Cardiology is suggesting that systemic anticoagulation would not be indicated atthis time. 3. 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 Patient has had significant issues with anxiety in the past. Patient has been tolerating BiPAP. Could consider obtaining a sleep study as an outpatient for evaluation. Subjective Subjective Patient did okay overnight. Patient continues to use BiPAP with sleep and feelsthis is helpful. Patient has not had any hemodynamic instability. Patient has not had any stridor. Patient was able to pass a swallow evaluation. Patient does continue to report intermittent chest pain, but is not changed in intensityor character. Objective Data Objective Data No recurrence of A-fib noted on telemetry Vital Signs: Vital Signs Temp Pulse Resp BP Pulse Ox O2 Del Method O2 Flow Rate 36.2 C L 59 L 18 150/65 H 98 Bi-pap 4 06/03/23 03:40 06/03/23 06:56 06/03/23 06:56 06/03/23 03:40 06/03/23 06:56 06/03/23 03:55 06/02/23 23:18 FiO2 30 06/03/23 06:56 Oxygen Flow Rate (L/min) 4 Oxygen Delivery Method Bi-pap Weight: 99.1 kg Body Mass Index (BMI) 40.1 Intake & Output: Intake and Output for Last 24 Hours 06/01/23 06/02/23 06/03/23 23:59 23:59 23:59 Intake Total 173.1 / 173.1 760 / 760 60 / 60 Output Total 950 / 1150 540 / 540 Balance -776.9 / -976.9 220 / 220 60 / 60 Lab / Micro Data Attestation: I reviewed the patient's lab results. 06/03/23 03:52 06/03/23 03:52 Labs: Laboratory Results - last 24 hr 06/02/23 11:47: POC Glucose 204 H 06/02/23 17:00: POC Glucose 289 H 06/02/23 20:44: POC Glucose 237 H 06/03/23 03:52: WBC 14.7 H, RBC 3.68 L, Hgb 10.6 L, Hct 34.1 L, MCV 92.7, MCH 28.8, MCHC 31.1 L, RDW Std Deviation 43.0, RDW Coeff of Malcom 12.7, Plt Count 332,MPV 10.6, Immature Gran % (Auto) 1.300 H, Neut % (Auto) 86.4 H, Lymph % (Auto) 6.4 L, Cooke % (Auto) 5.6, Eos % (Auto) 0.0, Baso % (Auto) 0.3, Absolute Neuts (auto) 12.7 H, Absolute Lymphs (auto) 0.94, Nucleated RBC % 0, Sodium 137, Potassium 4.4, Chloride 104, Carbon Dioxide 29.0, Anion Gap 4 L, BUN 41 H, Creatinine 0.83, Estim Creat Clear Calc 46.91, Est GFR (MDRD) Af Amer 87, Est GFR (MDRD) Non-Af 72, BUN/Creatinine Ratio 49.5 H, Glucose 214 H, Calcium 8.8, Total Bilirubin 0.40, AST 21, ALT 41, Alkaline Phosphatase 101, Total Protein 6.1 L, Albumin 3.1 L, Globulin 3.0, Albumin/Globulin Ratio 1.0 Micro: Microbiology 05/31/23 00:20 Sputum, Induced/Lukens Gram Stain - Final 05/31/23 00:20 Sputum, Induced/Lukens Respiratory Culture - Final Presumptive C albicans Rhythm Strip Rhythm Strip: Sinus Rhythm Rate: 60 Ectopy: None Physical Exam Const alert, oriented x3 and no apparent distress Constitutional Narrative: RASS -1 General Appearance: cooperative, comfortable, well kempt and well developed Nutritional Appearance: morbidly obese HEENT normocephalic, head/scalp atraumatic, hearing grossly normal bilaterally and moist oral mucous membranes Eyes PERRL, EOMs intact bilaterally and conjunctivae normal Eyes Narrative: No scleral icterus Neck no lymphadenopathy and supple Neck Narrative: Trachea midline, no thyroid enlargement Resp normal respiratory effort, no retractions and no use of accessory muscles Resp Narrative: Coarse breath sounds on BiPAP Auscultation: Negative for rales, rhonchi or wheezes Cardio regular rate, regular rhythm, S1 normal heart sound, S2 normal heart sound, no murmurs, no rub, no gallops and no clicks GI normal to inspection, nondistended, normoactive bowel sounds, soft to palpation and non-tender Extremity no clubbing, cyanosis or edema Extremity Narrative: Pedal pulses are 2+, onychomycosis bilateral lower extremities Skin no rashes or lesions noted, no wounds, skin turgor normal and no jaundice Neuro CN's II-XII intact bilaterally, moves all extremities and no focal motor deficits Neuro Narrative: Very minimal generalized weakness with proximal musculature being weaker than distal Speech: speech normal Psych cooperative and affect normal Charges/Coding Visit Charges Inpatient E&M: 19972 Subs Hosp L2 06/03/23 1976 <Electronically signed by Haroon Nuno MD> Cosigner Signature (if applicable): CC: ~ Signed [facility] Work Phone: 1(790) 910-963310-25-2023 Progress note Author Haroon Nuno [facility] June 02, 2023 1:05pm Note Date/Time June 02, 2023 6 :41am [facility] Medical Records Department [address] [place] [address] Progress Note - Women Designer 06/02/23 0637 MR#: [id number] Acct: [id number] Name: JEANNA VARGAS Rep #:[id number] : 1950 72 From: Haroon Nuno MD PCP: Dr. Billy Madera MD Status:A DM IN Location: ICU ICU01-1 Assessment & Plan Assessment/Plan (1) Atrial fibrillation with rapid ventricular response: (2) Cardiac arrest with pulseless electrical activity: (3) Anaphylaxis: QUALIFIERS: Encounter type: initial encounter Qualified Code(s): T78.2XXA - Anaphylactic shock, unspecified, initial encounter (4) Respiratory failure: QUALIFIERS: Chronicity: acute on chronic Respiratory failure complication: hypercapnia Qualified Code(s): J96.22 - Acute and chronic respiratory failure with hypercapnia PLAN: Plan RECOMMENDATIONS: 1. Discontinue antibiotics 2. Continue aggressive control of blood pressure 3. Continue steroids for 24 hours 4. BiPAP rescue if necessary 5. Okay to leave the intensive care unit from my perspective 6. Reinitiate baseline medications if able to pass a swallow study IMPRESSIONS: 1. Acute on chronic combined respiratory failure secondary to cardiopulmonary arrest secondary to anaphylaxis Patient does have significant underlying lung disease, but likely had an element of anaphylaxis leading to an arrest. It is unclear if this is secondaryto a respiratory or cardiac etiology. Patient appears to have responded well tocurrent therapy. Patient tolerated extubation well. Patient remains on BiPAP with sleep. Cultures are showing only Shira, so antibiotics will be discontinued. There was a question of upper lobe infiltrates. Patient does notappear to have any anoxic injury associated with this event, but will have to wait for extubation and reevaluate. 2. Hypertensive emergency/anxiety disorder Patient with significant decompensation when systolics were greater than 190. Unclear if this is related to anxiety versus having anxiety as a result ofher pulmonary edema. Patient currently n.p.o., so some IV BP meds had to be initiated. Hopefully this can be started soon once patient passes swallow study. Cardiology is not planning any acute interventions 3. A-fib with RVR status post cardioversion Patient noted to have A-fib with RVR on ROSC. Patient did receive a cardioversion. This would exacerbate patient's underlying diastolic heart failure, but x-ray appears to show patient is tolerating relatively well. Patient is back on her baseline medications. Cardiology is suggesting that systemicanticoagulation would not be indicated at this time. 3. 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 Patient has had significant issues with anxiety in the past.. Patient would likely benefit fromnocturnal CPAP on extubation, but has not tolerated this in the past. Subjective Subjective Patient did okay overnight. Unfortunately, patient failed her swallow study, sowas not able to be placed on her baseline medications. Patient with some agitation overnight and did receive Ativan x2. Patient is slightly confused this morning, but has been going between her baseline oxygen and BiPAP overnight. Patient is not reporting any pain at this time. Objective Data Objective Data Vital Signs: Vital Signs Temp Pulse Resp BP Pulse Ox O2 Del Method O2 Flow Rate 37.2 C 64 18 171/67 H 98 Bi-pap 4 06/02/23 04:00 06/02/23 06:00 06/02/23 06:00 06/02/23 06:00 06/02/23 06:00 06/02/23 06:00 06/01/23 22:00 FiO2 30 06/02/23 06:00 Oxygen Flow Rate (L/min) 4 Oxygen Delivery Method Bi-pap Weight: 98.1 kg Body Mass Index (BMI) 39.8 Intake & Output: Intake and Output for Last 24 Hours 05/31/23 06/01/23 06/02/23 23:59 23:59 23:59 Intake Total 1866.68 / 1887.78 173.1 / 173.1 Output Total 1875 / 1875 950 / 1150 400 / 400 Balance -8.32 / 12.78 -776.9 / -976.9 -400 / -400 Lab / Micro Data Attestation: I reviewed the patient's lab results. 06/02/23 04:25 06/02/23 04:25 Labs: Laboratory Results - last 24 hr 06/01/23 11:08: POC Glucose 146 H 06/01/23 16:58: POC Glucose 182 H 06/01/23 20:41: POC Glucose 191 H 06/01/23 23:39: POC Glucose 201 H 06/02/23 04:25: WBC 16.8 H, RBC 3.75 L, Hgb 10.8 L, Hct 34.5 L, MCV 92.0, MCH 28.8, MCHC 31.3 L, RDW Std Deviation 42.5, RDW Coeff of Malcom 12.6, Plt Count 357,MPV 10.6, Immature Gran % (Auto) 1.000 H, Neut % (Auto) 85.6 H, Lymph % (Auto) 6.8 L, Cooke % (Auto) 6.4, Eos % (Auto) 0.0, Baso % (Auto) 0.2, Absolute Neuts (auto) 14.4 H, Absolute Lymphs (auto) 1.14, Nucleated RBC % 0, Sodium 139, Potassium 4.2, Chloride 105, Carbon Dioxide 31.0, Anion Gap 3 L, BUN 36 H, Creatinine 0.92, Estim Creat Clear Calc 42.32, Est GFR (MDRD) Af Amer 78, Est GFR (MDRD) Non-Af 64, BUN/Creatinine Ratio 39.3 H, Glucose 152 H, Calcium 9.0, Total Bilirubin 0.40, AST 27, ALT 50, Alkaline Phosphatase 116, Total Protein 6.6, Albumin 3.2, Globulin 3.4, Albumin/Globulin Ratio 0.9 Micro: Microbiology 05/31/23 00:20 Sputum, Induced/Lukens Gram Stain - Final 05/31/23 00:20 Sputum, Induced/Lukens Respiratory Culture - Preliminary Presumptive C albicans Radiography Diagnostic Testing: Radiology Impression Echocardiogram 05/31/23 00:25 Interpretation Summary Mild concentric left ventricular hypertrophy. The left ventricular ejection fraction is 65 %. Mildly dilated right ventricle. The left atrium is mildly enlarged. Right ventricular systolic pressure estimated to be 43 mmHg. Mild-Moderate (1-2+) posteriorly directed mitral valve insufficiency. The study was technically difficult. Ordering Physician: Nico Sweet Referring Physician: Billy Madera Performed By: Barbara Alonzo, RDCS, RVT Rhythm Strip Rhythm Strip: Sinus Rhythm Rate: 65 Ectopy: None Physical Exam Const alert Constitutional Narrative: RASS +1 General Appearance: cooperative, comfortable, well kempt and well developed Nutritional Appearance: morbidly obese HEENT normocephalic, head/scalp atraumatic, hearing grossly normal bilaterally and moist oral mucous membranes Eyes PERRL, EOMs intact bilaterally and conjunctivae normal Eyes Narrative: No scleral icterus Neck no lymphadenopathy and supple Neck Narrative: Trachea midline, no thyroid enlargement Resp normal respiratory effort, no retractions and no use of accessory muscles Resp Narrative: Coarse breath sounds on BiPAP Auscultation: wheezes; Negative for rales or rhonchi Cardio regular rate, regular rhythm, S1 normal heart sound, S2 normal heart sound, no murmurs, no rub, no gallops and no clicks GI normal to inspection, nondistended, normoactive bowel sounds, soft to palpation and non-tender Extremity no clubbing, cyanosis or edema Extremity Narrative: Pedal pulses are 2+, onychomycosis bilateral lower extremities Skin no rashes or lesions noted, no wounds, skin turgor normal and no jaundice Neuro CN's II-XII intact bilaterally, moves all extremities and no focal motor deficits Neuro Narrative: Very minimal generalized weakness with proximal musculature being weaker than distal Speech: speech normal Psych affect normal Activity / Motor Behavior: restless Charges/Coding Visit Charges Inpatient E&M: 54257 Subs Hosp L3 06/02/23 1305 <Electronically signed by Haroon Nuno MD> Cosigner Signature (if applicable): CC: ~ Signed [facility] Work Phone: 1(703) 642-600910-25-2023 Progress note Author Kenny Ibarra [facility] June 02, 2023 11:38am Note Date/Time June 02, 2023 1 1:38am [facility] Medical Records Department [address] [place] [address] Progress Note - Cardiology 06/02/23 1136 MR#: [id number] Acct: [id number] Name: NGUYENJEANNA J Rep #:[id number] : 1950 72 From: Kenny Ibarra MD PCP: Dr. Billy Madera MD Status:A DM IN Location: ICU ICU01-1 Subjective Subjective Sitting up in a chair. Complains of chest discomfort with deep breathing and coughing. Objective Data Vital Signs: Vital Signs Temp Pulse Resp BP Pulse Ox O2 Del Method O2 Flow Rate 98.4 F 71 24 H 151/64 H 98 Nasal Cannula 4 06/02/23 10:00 06/02/23 11:13 06/02/23 11:13 06/02/23 10:00 06/02/23 10:00 06/02/23 10:00 06/02/23 10:00 FiO2 30 06/02/23 06:00 Oxygen Flow Rate (L/min) 4 Oxygen Delivery Method Nasal Cannula Weight: 216 lb 4.375 oz Body Mass Index (BMI) 39.8 Intake & Output: Intake and Output for Last 24 Hours 05/31/23 06/01/23 06/02/23 23:59 23:59 23:59 Intake Total 1866.68 / 1887.78 173.1 / 173.1 Output Total 1875 / 1875 950 / 1150 440 / 440 Balance -8.32 / 12.78 -776.9 / -976.9 -440 / -440 Lab / Micro Data 06/02/23 04:25 06/02/23 04:25 Labs: Laboratory Results - last 24 hr 06/01/23 16:58: POC Glucose 182 H 06/01/23 20:41: POC Glucose 191 H 06/01/23 23:39: POC Glucose 201 H 06/02/23 04:25: WBC 16.8 H, RBC 3.75 L, Hgb 10.8 L, Hct 34.5 L, MCV 92.0, MCH 28.8, MCHC 31.3 L, RDW Std Deviation 42.5, RDW Coeff of Malcom 12.6, Plt Count 357,MPV 10.6, Immature Gran % (Auto) 1.000 H, Neut % (Auto) 85.6 H, Lymph % (Auto) 6.8 L, Cooke % (Auto) 6.4, Eos % (Auto) 0.0, Baso % (Auto) 0.2, Absolute Neuts (auto) 14.4 H, Absolute Lymphs (auto) 1.14, Nucleated RBC % 0, Sodium 139, Potassium 4.2, Chloride 105, Carbon Dioxide 31.0, Anion Gap 3 L, BUN 36 H, Creatinine 0.92, Estim Creat Clear Calc 42.32, Est GFR (MDRD) Af Amer 78, Est GFR (MDRD) Non-Af 64, BUN/Creatinine Ratio 39.3 H, Glucose 152 H, Calcium 9.0, Total Bilirubin 0.40, AST 27, ALT 50, Alkaline Phosphatase 116, Total Protein 6.6, Albumin 3.2, Globulin 3.4, Albumin/Globulin Ratio 0.9 Micro: Microbiology 05/31/23 00:20 Sputum, Induced/Lukens Gram Stain - Final 05/31/23 00:20 Sputum, Induced/Lukens Respiratory Culture - Final Presumptive C albicans Rhythm Strip Rhythm Strip: Sinus Rhythm Rate: 65 Ectopy: None Cardiology Labs/Tests 06/02/23 04:25: WBC 16.8 H, RBC 3.75 L, Hgb 10.8 L, Hct 34.5 L, MCV 92.0, MCH 28.8, MCHC 31.3 L, Plt Count 357, MPV 10.6, Immature Gran % (Auto) 1.000 H, Neut% (Auto) 85.6 H, Lymph % (Auto) 6.8 L, Cooke % (Auto) 6.4, Eos % (Auto) 0.0, Baso% (Auto) 0.2, Absolute Neuts (auto) 14.4 H, Nucleated RBC % 0, Sodium 139, Potassium 4.2, Chloride 105, Carbon Dioxide 31.0, Anion Gap 3 L, BUN 36 H, Creatinine 0.92, Est GFR (MDRD) Af Amer 78, Est GFR (MDRD) Non-Af 64, BUN/Creatinine Ratio 39.3 H, Glucose 152 H, Calcium 9.0, Total Bilirubin 0.40 Rhythm: EKG: ECHO: Stress Test: Cardiac Cath: PCI: CT Surgery: Holter monitor: EPS: PPM: CXR: Chest CT Scan: Radiography Diagnostic Testing: Radiology Impression Echocardiogram 05/31/23 00:25 Interpretation Summary Mild concentric left ventricular hypertrophy. The left ventricular ejection fraction is 65 %. Mildly dilated right ventricle. The left atrium is mildly enlarged. Right ventricular systolic pressure estimated to be 43 mmHg. Mild-Moderate (1-2+) posteriorly directed mitral valve insufficiency. The study was technically difficult. Ordering Physician: Nico Sweet Referring Physician: Billy Madera Performed By: Barbara Alonzo, RDCS, RVT Physical Exam Narrative Appears moderately short of breath. Heart sounds 1 and 2 are noted. Chest examination shows decreased air entry bilaterally. Alert oriented x3. No ankleedema noted. Assessment & Plan Assessment/Plan (1) Cardiopulmonary arrest with successful resuscitation: PLAN: PEA cardiac arrest reported. I could not find rhythm strips. Apparently patient was noted to have a swollen tongue and lip swelling as well. Consider cardiac arrest either secondary to anaphylactic reaction versus severe COPD exacerbation with hypoxia. Normal left ventricular systolic function. Troponinwas negative. Presently chest pain with deep breathing and coughing. Likely result of CPR done. (2) Atrial fibrillation with rapid ventricular response: PLAN: Postresuscitation. Presently maintaining normal sinus rhythm. Continue clopidogrel. If recurrence of atrial fibrillation, then will consider anticoagulation. Recommend 14-day event monitoring upon discharge. (3) History of CAD (coronary artery disease): PLAN: Coronary angiography done and December of this year showed patent stent to the LAD with no other obstructive disease. Continue medical management. (4) Anaphylaxis: QUALIFIERS: Encounter type: initial encounter Qualified Code(s): T78.2XXA - Anaphylactic shock, unspecified, initial encounter PLAN: As per internal medicine. (5) History of diabetes mellitus: PLAN: As per internal medicine. (6) COPD exacerbation: PLAN: Pulmonology/internal medicine following. (7) Bilateral pneumonia: QUALIFIERS: Pneumonia type: due to unspecified organism Lung location: lower lobe of lung Qualified Code(s): J18.9 - Pneumonia, unspecified organism PLAN: As per pulmonology. PLAN: Plan No further cardiac input at present. Recommend follow-up as outpatient. Will sign off for now. Please call if needed. 06/02/23 1138 <Electronically signed by Kenny Ibarra MD> Cosigner Signature (if applicable): CC: ~ Signed [facility] Work Phone: [phone]) 736-837010-25-2023 Progress note Author Enid Hernandez [facility] June 02, 2023 8:53am Note Date/Time June 02, 2023 7 :10am [facility] [facility] Medical Records Department [address] [place] [id number] Progress Note - Hospitalist 06/02/23703 MR#: [id number] Acct: [id number] Name: JEANNA VARGAS Rep #:[id number] : 1950 72 From: Enid Hernandez MD PCP: Dr. Billy Madera MD Status:A DM IN Location: ICU ICU01-1 Reason for Visit Reason for Visit: Diagnoses Cardiac arrest, cause unspecified (05/30/23) Unspecified atrial fibrillation (05/30/23) Pneumonia, unspecified organism (05/30/23) Chronic obstructive pulmonary disease with (acute) exacerbation (05/30/23) Acute and chronic respiratory failure with hypercapnia (05/30/23) Anaphylactic shock, unspecified, initial encounter (05/30/23) Personal history of other endocrine, nutritional and metabolic disease (05/30/23) Personal history of other diseases of the circulatory system (05/30/23) Subjective Subjective Patient still with some chest wall pain but breathing improving, anxious to be able to start eating and drinking Objective Data Objective Data Vital Signs: Vital Signs Temp Pulse Resp BP Pulse Ox O2 Del Method O2 Flow Rate 98.6 F 64 19 H 175/72 H 100 Nasal Cannula 4 06/02/23 07:00 06/02/23 07:00 06/02/23 07:00 06/02/23 07:00 06/02/23 07:00 06/02/23 07:00 06/02/23 07:00 FiO2 30 06/02/23 06:00 Oxygen Flow Rate (L/min) 4 Oxygen Delivery Method Nasal Cannula Weight: 98.1 kg Body Mass Index (BMI) 39.8 Intake & Output: Intake and Output for Last 24 Hours 05/31/23 06/01/2323 23:59 23:59 23:59 Intake Total 1866.68 / 1887.78 173.1 / 173.1 Output Total 1875 / 1875 950 / 1150 400 / 400 Balance -8.32 / 12.78 -776.9 / -976.9 -400 / -400 Lab / Micro Data 06/02/23 04:25 06/02/23 04:25 Labs: Laboratory Results - last 24 hr 06/01/23 11:08: POC Glucose 146 H 06/01/23 16:58: POC Glucose 182 H 06/01/23 20:41: POC Glucose 191 H 06/01/23 23:39: POC Glucose 201 H 06/02/23 04:25: WBC 16.8 H, RBC 3.75 L, Hgb 10.8 L, Hct 34.5 L, MCV 92.0, MCH 28.8, MCHC 31.3 L, RDW Std Deviation 42.5, RDW Coeff of Malcom 12.6, Plt Count 357,MPV 10.6, Immature Gran % (Auto) 1.000 H, Neut % (Auto) 85.6 H, Lymph % (Auto) 6.8 L, Cooke % (Auto) 6.4, Eos % (Auto) 0.0, Baso % (Auto) 0.2, Absolute Neuts (auto) 14.4 H, Absolute Lymphs (auto) 1.14, Nucleated RBC % 0, Sodium 139, Potassium 4.2, Chloride 105, Carbon Dioxide 31.0, Anion Gap 3 L, BUN 36 H, Creatinine 0.92, Estim Creat Clear Calc 42.32, Est GFR (MDRD) Af Amer 78, Est GFR (MDRD) Non-Af 64, BUN/Creatinine Ratio 39.3 H, Glucose 152 H, Calcium 9.0, Total Bilirubin 0.40, AST 27, ALT 50, Alkaline Phosphatase 116, Total Protein 6.6, Albumin 3.2, Globulin 3.4, Albumin/Globulin Ratio 0.9 Micro: Microbiology 05/31/23 00:20 Sputum, Induced/Lukens Gram Stain - Final 05/31/23 00:20 Sputum, Induced/Lukens Respiratory Culture - Preliminary Presumptive C albicans Radiography Diagnostic Testing: Radiology Impression Echocardiogram 05/31/23 00:25 Interpretation Summary Mild concentric left ventricular hypertrophy. The left ventricular ejection fraction is 65 %. Mildly dilated right ventricle. The left atrium is mildly enlarged. Right ventricular systolic pressure estimated to be 43 mmHg. Mild-Moderate (1-2+) posteriorly directed mitral valve insufficiency. The study was technically difficult. Ordering Physician: Nico Sweet Referring Physician: Billy Madera Performed By: Barbara Alonzo, KAMRYN, RVT Rhythm Strip Rhythm Strip: Sinus Rhythm Rate: 65 Ectopy: None Physical Exam Narrative General: Alert, oriented, no apparent distress HEENT: Atraumatic, normocephalic Eyes: Anicteric, normal conjunctiva, extraocular movements grossly intact Neck: Supple Respiratory: Somewhat increased respiratory rate, diminished at the bases Cardiovascular: Regular rate and rhythm GI: Soft, nontender, nondistended Extremities: No edema Musculoskeletal: Moving all extremities Neuro: No overt focal neurological deficits Skin: No rashes appreciated, has skin tags in thickened nails Psych: Cooperative appears anxious Assessment & Plan Assessment/Plan (1) Atrial fibrillation with rapid ventricular response: (2) Cardiac arrest with pulseless electrical activity: (3) COPD exacerbation: PLAN: Plan D/c'd on the morning of presentation after admit for aceopd and pneumonia. [id number] female came to ED after discharge with increased respiratory distress, tachypnea and hypoxia and then CODE BLUE blue after CTA chest, successfully ROSC and then admitted in ICU. #Acute cardiopulmonary arrest after CTA chest concern for possible anaphylactic reaction from IV contrast: Patient is being admitted in ICU. In her allergy list it is mention prednisone causes some mood changes which is known side effect of prednisone/steroid and hives with red dye. ER physician also said patienttongue was swollen and redness of the skin which improved later in the ED. Continue IV Solu-Medrol. Patient is intubated. Had successful ACLS/BLS lasted for 14 minutes with 3 doses of epinephrine. ABG 7.18/68/391 bicarb 28. Bicarb in BMP is 13. Women Designer consulted -05/31: Remains intubated in ICU, echo pending, still some tongue swelling stillremain intubated today and reeval tomorrow -06/01: Extubated, monitor in ICU today, remains on steroids. Likely secondary to anaphylactic reaction but cannot rule out cardiac cause, echo pending, cardiology consulted now that patient awake and noted to be neurologically intact -06/02: Pt doing better from resp perspective. Antibiotics discontinued. Echo with EF of 65% and normal diastole for age with no wall motion abnormalities noted. Lending to anaphylaxis more likely cause of cardiac arrest. Cardiology evaluated. Continue present medications and resume home medications if patient able to pass swallow eval. Discussed with research tech, likely will be able toDC steroids tomorrow. Suspect chest pain is chest wall pain secondary to CPR, will add lidocaine patch, incentive spirometer #Acute combined respiratory failure on chronic hypoxic respiratory failure due to acute exacerbation of COPD most likely due to bilateral lower lobes pneumoniaorganism unspecified, prior to present admission. : Continue bronchodilators DuoNeb every 4 hourly, IV Solu-Medrol, incentive/Pep after extubation, Mucinex. Prior to intubation, chest x-ray initially reviewed shows no acute infiltrate and reported normal. Started on IV ceftriaxone. Continue doxycycline. Patientcompleted azithromycin course. Patient just had COVID-19 PCR reported normal, respiratory panel normal and urinary antigens normal on 05/29/2023. She had COVID-vaccine and booster. Blood cultures x2 on 05/[address] still [address] Patient follows Dr. Nuno in pulmonary clinic. -05/31: Patient remains on IV Solu-Medrol and nebs, on Rocephin and Doxy, chest x-ray prior to intubation with no acute infiltrate, ICU/pulm consulted, sputum sample obtained and pending -06/01: On steroids, extubated, continue monitoring in ICU, on empiric antibiotics but will likely be able to discontinue -06/02: Antibiotics discontinued, doing better from respiratory perspective. Remains on IV Methylpred, will likely be able to DC steroids tomorrow #Transient A-fib after ACLS with history of CAD status post PCI ostial diagonal and mid LAD 12/26/2018 : Patient has been in sinus rhythm during previous EKG andEKG done prior to CODE BLUE. It is normal sinus rhythm 92 bpm. After CODE BLUEit was A- fib 138 bpm, QTc 4 8 8 ms. QRS 84 ms. Repeat 2D echo as patient had cardiopulmonary arrest. Patient was successfully cardioverted to sinus rhythm after 300 J by ER physician. Currently in sinus rhythm. Patient was admitted for unstable angina in December 2022 and at that time cardiac cath was done for abnormal stress test. Cardiac cath showed ostial lesion of jailed diagonal branch, patent LAD stent therefore no PCI was done. Continue losartan, metoprolol, isosorbide and Plavix. -05/31: Monitoring on telemetry, may be able to forego anticoagulation given this was Viviana cardiac arrest -06/01: Echo pending, monitor telemetry, as above -06/02: Monitoring on telemetry, has not had further A-fib at this time, echo unremarkable #Chronic Diastolic CHF: 08/11/2021 echocardiogram with normal LV size, moderate concentric LVH, LV systolic function normal, EF 60%, pulmonary artery systolic pressure 40 mmHg, stage I diastolic dysfunction. Patient is on Lasix 20 mg along with potassium supplement continued. Patient not showing clinical features of acute heart failure exacerbation. -05/31: Monitor I's and O's, daily weights, continue Lasix -06/01: Weight stable thus far, continue to monitor, echo pending, remains on Lasix -06/02: On small dose of Lasix which is her home dose. BUN did increase over past 2 days's may need to consider holding Lasix pending volume and clinical status #Diabetes mellitus type II: Continue home dose of Lantus insulin and lispro insulin. Currently NPO. accu checks every 6 hourly with Humalog sliding scale coverage. Start tube feed in the morning if still not extubated. -05/31: Continue to monitor glucose and adjust as indicated -06/01: Sliding scale every 6 and insulin glargine 30 twice daily -06/02: Once swallow passed can change to ACHS per sliding scale #Hypertensive urgency - Blood pressure was high in the ED. BP still 156/97. Continue home regimen including metoprolol, losartan, isosorbide. -05/31: BP in ED 193/91, has improved to 136/57 this a.m., continue present management -06/02: Continue to adjust medications for aggressive blood pressure control #Hyperlipidemia: Continue home statin regimen. Fasting profile in December 2022 within normal limit LDL 44, HDL 55. Continue high intensity atorvastatin. #Chronic normocytic anemia: Admission hemoglobin 10.9 g. On baseline. Plateletcount normal. #Anxiety and depression: Hold risperidone, citalopram, alprazolam home regimen as patient is sedated on propofol and fentanyl drip -06/01: We will resume home medications #Morbid obesity -BMI 40.6 kg/m? -Complicates treatment, prognosis, outcomes -Recommend weight loss and lifestyle changes #Other comorbidities include obstructive sleep apnea, former smoker: DVT prophylaxis: Lovenox 40 mg subcu daily. Time spent in the patient's overall evaluation,decision-making process, review of diagnostic data, adjustment of management, discussion with other providers, nursing nursing and ancillary staff involved in patient's care documentation, 40minutes Charges/Coding Visit Charges Inpatient E&M: 31623 Subs Hosp L2 06/02/23 0853 <Electronically signed by Enid Hernandez MD> Cosigner Signature (if applicable): CC: ~ Signed [facility] Work Phone: 1(406) 499-629510-24-2023 Progress note Author Haroon Yaakov [facility] June 01, 2023 3:11pm Note Date/Time June 01, 2023 6 :48am [facility] Medical Records Department [address] [place] [address] Progress Note - Women Designer 06/01/23 0644 MR#: [id number] Acct: [id number] Name: JEANNA VARGAS Rep #:[id number] : 1950 72 From: Haroon Nuno MD PCP: Dr. Billy Madera MD Status:A DM IN Location: ICU ICU01-1 Assessment & Plan Assessment/Plan (1) Atrial fibrillation with rapid ventricular response: (2) Cardiac arrest with pulseless electrical activity: (3) Anaphylaxis: QUALIFIERS: Encounter type: initial encounter Qualified Code(s): T78.2XXA - Anaphylactic shock, unspecified, initial encounter (4) Respiratory failure: QUALIFIERS: Chronicity: acute on chronic Respiratory failure complication: hypercapnia Qualified Code(s): J96.22 - Acute and chronic respiratory failure with hypercapnia PLAN: Plan RECOMMENDATIONS: 1. Likely discontinue antibiotics once cultures negative 2. Continue aggressive control of blood pressure 3. Continue steroids for 48 hours 4. BiPAP rescue if necessary 5. Monitor intensive care unit for another 24 hours IMPRESSIONS: 1. Acute on chronic combined respiratory failure secondary to cardiopulmonary arrest secondary to anaphylaxis Patient does have significant underlying lung disease, but likely had an element of anaphylaxis leading to an arrest. It is unclear if this is secondaryto a respiratory or cardiac etiology. Patient appears to have responded well tocurrent therapy. Lip swelling was significantly improved, so patient was extubated with 1 racemic epi. Patient is on empiric antibiotics, but has received multiple doses of antibiotics recently. There was a question of upper lobe infiltrates. Patient does not appear to have any anoxic injury associated with this event, but will have to wait for extubation and reevaluate. 2. Hypertensive emergency/anxiety disorder Patient with significant decompensation when systolics were greater than 190. Unclear if this is related to anxiety versus having anxiety as a result ofher pulmonary edema. Patient has not been receiving Imdur secondary to an inability to crush. Hopefully this can be started soon once patient passes swallow study. Defer to primary service if cardiology needs to be involved. 3. A-fib with RVR status post cardioversion Patient noted to have A-fib with RVR on ROSC. Patient did receive a cardioversion. This would exacerbate patient's underlying diastolic heart failure, but x-ray appears to show patient is tolerating relatively well. Patient is back on her baseline medications. 3. 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 Patient has had significant issues with anxiety in the past.. Patient would likely benefit fromnocturnal CPAP on extubation, but has not tolerated this in the past. TIME: 33 minutes critical care time spent addressing patient's acute on chronic respiratory failure, anaphylaxis, arrest, review of all data and collaboration with care team Subjective Subjective Patient did okay overnight. Patient did tolerate a spontaneous breathing trial this morning. Patient's leak test was marginal, but she did have over 200 cc ofloss tidal volume. Patient was very emphatic that the endotracheal tube be removed. Patient was successfully extubated after examination using a racemic epi shortly after extubation with good response. Patient states that she is doing well at this time Objective Data Objective Data Vital Signs: Vital Signs Temp Pulse Resp BP Pulse Ox O2 Del Method O2 Flow Rate 36.3 C L 86 13 161/74 H 99 Mechanical Ventilator 4 06/01/23 04:00 06/01/23 05:03 06/01/23 05:03 06/01/23 05:00 06/01/23 05:03 06/01/23 05:00 05/30/23 22:26 FiO2 30 06/01/23 05:00 Oxygen Flow Rate (L/min) 4 Oxygen Delivery Method Mechanical Ventilator Weight: 99.6 kg Body Mass Index (BMI) 40.4 Intake & Output: Intake and Output for Last 24 Hours 05/30/23 05/31/23 06/01/23 23:59 23:59 23:59 Intake Total 7.84 / 16.60 1866.68 / 1887.78 168.1 / 168.1 Output Total 1875 / 1875 Balance 7.84 / -23.40 -8.32 / 12.78 168.1 / 168.1 Lab / Micro Data Attestation: I reviewed the patient's lab results. 06/01/23 03:10 06/01/23 03:10 Labs: Laboratory Results - last 24 hr 05/30/23 20:30: Total Creatine Kinase 119, Triglycerides 113 05/31/23 11:34: POC Glucose 305 H 05/31/23 17:18: POC Glucose 282 H 05/31/23 22:23: POC Glucose 260 H 06/01/23 00:21: POC Glucose 269 H 06/01/23 03:10: WBC 13.3 H, RBC 3.47 L, Hgb 10.0 L, Hct 32.0 L, MCV 92.2, MCH 28.8, MCHC 31.3 L, RDW Std Deviation 42.5, RDW Coeff of Malcom 12.6, Plt Count 295,MPV 10.4, Immature Gran % (Auto) 0.900, Neut % (Auto) 86.9 H, Lymph % (Auto) 6.5L, Cooke % (Auto) 5.6, Eos % (Auto) 0.0, Baso % (Auto) 0.1, Absolute Neuts (auto)11.6 H, Absolute Lymphs (auto) 0.86, Nucleated RBC % 0, Sodium 137, Potassium 3.9, Chloride 102, Carbon Dioxide 30.0, Anion Gap 5, BUN 25 H, Creatinine 0.91, Estim Creat Clear Calc 42.79, Est GFR (MDRD) Af Amer 78, Est GFR (MDRD) Non-Af 65, BUN/Creatinine Ratio 27.4 H, Glucose 256 H, Calcium 8.8, Total Bilirubin 0.30, AST 18, ALT 60 H, Alkaline Phosphatase 111, Total Protein 6.0 L, Albumin 2.9 L, Globulin 3.1, Albumin/Globulin Ratio 0.9 06/01/23 05:40: POC Glucose 212 H Micro: Microbiology 05/31/23 00:20 Sputum, Induced/Lukens Gram Stain - Final Rhythm Strip Rhythm Strip: Sinus Rhythm Rate: 86 Ectopy: None Physical Exam Const alert Constitutional Narrative: RASS +1 General Appearance: cooperative, comfortable, well kempt and well developed Nutritional Appearance: morbidly obese HEENT normocephalic, head/scalp atraumatic, hearing grossly normal bilaterally and moist oral mucous membranes HEENT Narrative: No significant tongue or lip swelling Eyes PERRL, EOMs intact bilaterally and conjunctivae normal Eyes Narrative: No scleral icterus Neck no lymphadenopathy and supple Neck Narrative: Trachea midline, no thyroid enlargement Resp normal respiratory effort, no retractions and no use of accessory muscles Resp Narrative: Few scattered end expiratory wheezes Auscultation: wheezes; Negative for rales or rhonchi Cardio regular rate, regular rhythm, S1 normal heart sound, S2 normal heart sound, no murmurs, no rub, no gallops and no clicks GI normal to inspection, nondistended, normoactive bowel sounds, soft to palpation and non-tender Extremity no clubbing, cyanosis or edema Extremity Narrative: Pedal pulses are 2+, onychomycosis bilateral lower extremities Skin no rashes or lesions noted, no wounds, skin turgor normal and no jaundice Neuro CN's II-XII intact bilaterally, moves all extremities and no focal motor deficits Neuro Narrative: Very minimal generalized weakness with proximal musculature being weaker than distal Speech: speech normal Psych Mood & Affect: anxious Charges/Coding Procedures Hospitalists Procedures: 93327 Critial Care 1st Hr 06/01/23 1511 <Electronically signed by Haroon Nuno MD> Cosigner Signature (if applicable): CC: ~ Signed [facility] Work Phone: [phone]) 424-260210-24-2023 Consult note Author Kenny Ibarra [facility] June 01, 2023 1:45pm Note Date/Time June 01, 2023 1 :45pm [facility] Medical Records Department [address] [place] [address] Consultation - Cardiology 06/01/23 1334 MR#: [id number] Acct: [id number] Name: JEANNA VARGAS Rep #:[id number] : 1950 72 From: Kenny Ibarra MD PCP: Dr. Billy Madera MD Status:A DM IN Location: ICU ICU01-1 Assessment & Plan Assessment/Plan (1) Cardiopulmonary arrest with successful resuscitation: PLAN: PEA cardiac arrest reported. I could not find rhythm strips. Apparently patient was noted to have a swollen tongue and lip swelling as well. Consider cardiac arrest either secondary to anaphylactic reaction versus severe COPD exacerbation with hypoxia. Normal left ventricular systolic function. Troponinwas negative. (2) Atrial fibrillation with rapid ventricular response: PLAN: Postresuscitation. Presently maintaining normal sinus rhythm. Continue clopidogrel. If recurrence of atrial fibrillation, then will consider anticoagulation. (3) History of CAD (coronary artery disease): PLAN: Coronary angiography done and December of this year showed patent stent to the LAD with no other obstructive disease. Continue medical management. (4) Anaphylaxis: QUALIFIERS: Encounter type: initial encounter Qualified Code(s): T78.2XXA - Anaphylactic shock, unspecified, initial encounter PLAN: As per internal medicine. (5) History of diabetes mellitus: PLAN: As per internal medicine. (6) COPD exacerbation: PLAN: Pulmonology/internal medicine following. (7) Bilateral pneumonia: QUALIFIERS: Pneumonia type: due to unspecified organism Lung location: lower lobe of lung Qualified Code(s): J18.9 - Pneumonia, unspecified organism PLAN: As per pulmonology. HPI Consult Data Date of Consult: 06/01/23 HPI Narrative Reason for Consultation: Cardiopulmonary arrest HPI Narrative: This lady has past medical history significant for diabetes mellitus, hypertension, severe COPD and coronary artery disease with percutaneous intervention to her LAD in the past. Her most recent coronary angiography was about 5 months ago which revealed patent stent to the LAD and no other significant disease. Patient was only recently discharged from the hospital after admission and treatment for COPD exacerbation. However that same day, she presented to the emergency room again complaining of shortness of breath. She was in the processof work-up for her hypoxia and shortness of breath. She was in the CT scan department for CT angio of her chest when she reportedly had a PEA arrest. CPR was commenced. She was successfully resuscitated.There are reports of there is documentation about lip swelling and tongue swelling and so consideration is being given to an anaphylactic reaction to IV contrast media. Continues to complain of shortness of breath this afternoon. According to her, her chest hurts whenever she tries to take a deep breath. [facility] Medical History Anemia Anxiety and depression Asthma with COPD Atherosclerotic heart disease of [place] coronary artery without angina pectoris Back pain Chest pain Chronic back pain Chronic respiratory failure COPD (chronic obstructive pulmonary disease) Diastolic CHF Former smoker Hepatitis HLD (hyperlipidemia) Hypertension Morbid obesity Obesity MARK treated with BiPAP Psoriasis Smoking greater than 40 pack years Thyroid nodule Type 2 diabetes mellitus Home Medications Handicap Placard #1 ea 12/12/20 [Rx Last Taken Unknown] bisacodyl 5 mg tablet,delayed release (Dulcolax (bisacodyl)) 5 mg PO QHS PRN constipation 30 days #30 tabs 11/13/21 [Rx Last Taken Unknown] pen needle, diabetic 32 gauge x " #50 ea 02/11/22 [Rx Last Taken Unknown] blood sugar diagnostic (True Metrix Glucose Test Strip) #100 ea 09/11/22 [Rx Last Taken Unknown] blood-glucose meter (True Metrix Glucose Meter) #1 ea 09/11/22 [Rx Last Taken Unknown] albuterol sulfate 90 mcg/actuation aerosol inhaler 2 puff inhalation Q6H PRN shortness of breath or wheezing #18 grams 11/06/22 [Rx Last Taken Unknown] ipratropium 0.5 mg-albuterol 3 mg (2.5 mg base)/3 mL nebulization soln 3 ml inhalation Q4H PRN PRN SOB &/OR WHEEZING #180 mL 11/10/22 [Rx Last Taken Unknown] cane #1 ea 11/16/22 [Rx Last Taken Unknown] citalopram 40 mg tablet 40 mg PO QHS depression #90 tabs 11/16/22 [Rx Last Taken Unknown] risperidone 1 mg tablet 1 mg PO QHS anxiety #90 tabs 12/07/22 [Rx Last Taken Unknown] isosorbide mononitrate 60 mg tablet,extended release 24 hr 60 mg PO DAILY BP #90tabs 12/26/22 [Rx Last Taken Unknown] nitroglycerin 0.4 mg sublingual tablet 0.4 mg sublingual Q5-15M PRN Pain #30 tabs 12/26/22 [Rx Last Taken Unknown] flash glucose sensor ([employer] Tanika 2 Sensor kit) #2 ea 01/06/23 [Rx Last Taken Unknown] atorvastatin 80 mg tablet 80 mg PO QHS cholesterol 01/26/23 [History Last Taken Unknown] clopidogrel 75 mg tablet 75 mg PO DAILY blood thinner 01/26/23 [History Last Taken Unknown] furosemide 20 mg tablet (Lasix) 20 mg PO DAILY diuretic 01/26/23 [History Last Taken Unknown] losartan 25 mg tablet 25 mg PO DAILY blood pressure 01/26/23 [History Last Taken Unknown] metoprolol tartrate 25 mg tablet 12.5 mg PO BID blood pressure 01/26/23 [History Last Taken Unknown] flash glucose scanning reader ([employer] Tanika 2 [place]) #1 ea 03/23/23 [Rx Last Taken Unknown] ondansetron HCl 4 mg tablet 4 mg PO Q6H PRN nausea and vomiting #14 tabs 04/16/23 [Rx Last Taken Unknown] sucralfate 1 gram tablet (Carafate) 1 g PO TID PRN acid reflux #20 tabs 04/16/23[Rx Last Taken Unknown] insulin glargine 100 unit/mL (3 mL) subcutaneous pen (Basaglar KwikPen U-100 Insulin) 36 unit (0.36 mL) subcut DAILY diabetic managment #42 mL 05/06/23 [Rx Last Taken Unknown] insulin lispro 100 unit/mL subcutaneous pen (Humalog KwikPen (U-100) Insulin) 20unit (0.2 mL) subcut TID diabetes #72 mL 05/06/23 [Rx Last Taken Unknown] alprazolam 0.25 mg tablet 0.25 mg PO QHS anxiety #30 tabs 05/12/23 [Rx Last Taken Unknown] pantoprazole 40 mg tablet,delayed release 40 mg PO BID stomach #180 tabs 05/20/23 [Rx Last Taken Unknown] potassium chloride 20 mEq tablet,extended release 20 meq PO DAILY #3 tabs 05/25/23 [Rx Last Taken Unknown] doxycycline hyclate 100 mg tablet 100 mg PO BID #10 tabs 05/30/23 [Rx Last Taken Unknown] prednisone 20 mg tablet 40 mg (2 x 20 mg) PO DAILY #10 tabs 05/30/23 [Rx Last Taken Unknown] Allergy/AdvReac Type Severity Reaction Status Date / Time Iodinated Contrast Media Allergy Severe Anaphylaxis Verified 05/31/23 06:34 amoxicillin [Amoxicillin] Allergy Intermediate Rash Verified 05/28/23 22:22 hydrocodone Allergy Intermediate SWELLING Verified 05/28/23 22:22 gabapentin [From Neurontin] Allergy Shortness Verified 05/28/23 22:22 of breath levofloxacin [From Levaquin] Allergy Hives Verified 05/28/23 22:22 pseudoephedrine HCl Allergy Shortness Verified 05/28/23 22:22 [From Sudafed] of breath red dye Allergy Hives Verified 05/28/23 22:22 prednisone AdvReac Severe mean mood Verified 05/28/23 22:22 clonazepam [From Klonopin] AdvReac Depression Verified 05/28/23 22:22 codeine AdvReac HEADACHE Verified 05/28/23 22:22 Family History Brother Heart disease Mother Colon cancer Heart disease Surgical History History of cholecystectomy History of left heart catheterization (LHC) (~09/23/20) Stented coronary artery (12/28/18) Social History Smoking Status: Former smoker pack-years: 40 how long ago did patient quit smokin year ago alcohol intake: never substance use type: does not use caffeine: Yes Type: carbonated beverages and tea what type of physical activity do you participate in: none Physical Exam Narrative Appears moderately short of breath. Heart sounds 1 and 2 are noted. Tachycardic. Chest examination shows decreased air entry bilaterally. Alert oriented x3. No ankle edema noted. Risk Stratification Risk Stratification Applicable: No Objective Data Vital Signs: Vital Signs Temp Pulse Resp BP Pulse Ox O2 Del Method O2 Flow Rate 99.8 F H 80 21 H 151/57 H 100 Bi-pap 4 06/01/23 12:00 06/01/23 12:00 06/01/23 12:00 06/01/23 12:00 06/01/23 12:00 06/01/23 12:00 06/01/23 09:00 FiO2 40 06/01/23 12:00 Oxygen Flow Rate (L/min) 4 Oxygen Delivery Method Bi-pap Weight: 219 lb 9.286 oz Body Mass Index (BMI) 40.4 Intake & Output: Intake and Output for Last 24 Hours 05/30/23 05/31/23 06/01/23 23:59 23:59 23:59 Intake Total 7.84 / 16.60 1866.68 / 1887.78 173.1 / 173.1 Output Total 1875 / 1875 600 / 600 Balance 7.84 / -23.40 -8.32 / 12.78 -426.9 / -426.9 Lab / Micro Data Attestation: I reviewed the patient's lab results. 06/01/23 03:10 06/01/23 03:10 Labs: Laboratory Results - last 24 hr 05/31/23 17:18: POC Glucose 282 H 05/31/23 22:23: POC Glucose 260 H 06/01/23 00:21: POC Glucose 269 H 06/01/23 03:10: WBC 13.3 H, RBC 3.47 L, Hgb 10.0 L, Hct 32.0 L, MCV 92.2, MCH 28.8, MCHC 31.3 L, RDW Std Deviation 42.5, RDW Coeff of Malcom 12.6, Plt Count 295,MPV 10.4, Immature Gran % (Auto) 0.900, Neut % (Auto) 86.9 H, Lymph % (Auto) 6.5L, Cooke % (Auto) 5.6, Eos % (Auto) 0.0, Baso % (Auto) 0.1, Absolute Neuts (auto)11.6 H, Absolute Lymphs (auto) 0.86, Nucleated RBC % 0, Sodium 137, Potassium 3.9, Chloride 102, Carbon Dioxide 30.0, Anion Gap 5, BUN 25 H, Creatinine 0.91, Estim Creat Clear Calc 42.79, Est GFR (MDRD) Af Amer 78, Est GFR (MDRD) Non-Af 65, BUN/Creatinine Ratio 27.4 H, Glucose 256 H, Calcium 8.8, Total Bilirubin 0.30, AST 18, ALT 60 H, Alkaline Phosphatase 111, Total Protein 6.0 L, Albumin 2.9 L, Globulin 3.1, Albumin/Globulin Ratio 0.9 06/01/23 05:40: POC Glucose 212 H 06/01/23 11:08: POC Glucose 146 H Micro: Microbiology 05/31/23 00:20 Sputum, Induced/Lukens Gram Stain - Final 05/31/23 00:20 Sputum, Induced/Lukens Respiratory Culture - Preliminary Presumptive C albicans Rhythm Strip Rhythm Strip: Sinus Rhythm Rate: 86 Ectopy: None Cardiology Labs/Tests 06/01/23 03:10: WBC 13.3 H, RBC 3.47 L, Hgb 10.0 L, Hct 32.0 L, MCV 92.2, MCH 28.8, MCHC 31.3 L, Plt Count 295, MPV 10.4, Immature Gran % (Auto) 0.900, Neut %(Auto) 86.9 H, Lymph % (Auto) 6.5 L, Cooke % (Auto) 5.6, Eos % (Auto) 0.0, Baso %(Auto) 0.1, Absolute Neuts (auto) 11.6 H, Nucleated RBC % 0, Sodium 137, Potassium 3.9, Chloride 102, Carbon Dioxide 30.0, Anion Gap 5, BUN 25 H, Creatinine 0.91, Est GFR (MDRD) Af Amer 78, Est GFR (MDRD) Non-Af 65, BUN/Creatinine Ratio 27.4 H, Glucose 256 H, Calcium 8.8, Total Bilirubin 0.30 Rhythm: Sinus rhythm EKG: Postresuscitation ECG showed atrial fibrillation with rapid ventricular response. Converted back to normal sinus rhythm spontaneously. ECHO:Normal left normal left ventricular systolic function. Mild to moderate moderate eccentric mitral regurgitation. Stress Test: Cardiac Cath: PCI: CT Surgery: Holter monitor: EPS: PPM: CXR: Chest CT Scan: Radiography Diagnostic Testing: Radiology Impression Echocardiogram 05/31/23 00:25 Interpretation Summary Mild concentric left ventricular hypertrophy. The left ventricular ejection fraction is 65 %. Mildly dilated right ventricle. The left atrium is mildly enlarged. Right ventricular systolic pressure estimated to be 43 mmHg. Mild-Moderate (1-2+) posteriorly directed mitral valve insufficiency. The study was technically difficult. Ordering Physician: Nico Sweet Referring Physician: Billy Madera Performed By: Barbara Alonzo, KAMRYN, RVT 06/01/23 1345 <Electronically signed by Kenny Ibarra MD> Cosigner Signature (if applicable): CC: SYMONE Givens; Dr. Kenny Ibarra MD; Dr. Haroon Nuno MD; Dr. Korey Fraser DO; Dr. Billy Madera MD; Dr. Inez Bello MD; Dr. Dimitry Olmedo MD; Dr. Nico Sweet MD; Dr. Chapito Trejo MD~ Signed [facility] Work Phone: [phone]) 296-703410-24-2023 Progress note Author Enid Hernandez [facility] June 01, 2023 9:33am Note Date/Time June 01, 2023 7 :02am [facility] Medical Records Department [address] [place] [id number] Progress Note - Hospitalist 06/01/23 0700 MR#: [id number] Acct: [id number] Name: JEANNA VARGAS Rep #:[id number] : 1950 72 From: Enid Hernandez MD PCP: Dr. Billy Madera MD Status:A DM IN Location: ICU ICU01-1 Reason for Visit Reason for Visit: Diagnoses Cardiac arrest, cause unspecified (05/30/23) Unspecified atrial fibrillation (05/30/23) Chronic obstructive pulmonary disease with (acute) exacerbation (05/30/23) Acute and chronic respiratory failure with hypercapnia (05/30/23) Anaphylactic shock, unspecified, initial encounter (05/30/23) Subjective Subjective Reports feeling little bit short of breath and having chest pain but she has difficult time telling its chest wall pain or deeper Objective Data Objective Data Vital Signs: Vital Signs Temp Pulse Resp BP Pulse Ox O2 Del Method O2 Flow Rate 97.3 F L 88 30 H 174/73 H 96 Nasal Cannula 4 06/01/23 04:00 06/01/23 06:56 06/01/23 06:56 06/01/23 06:00 06/01/23 06:56 06/01/23 06:56 06/01/23 06:56 FiO2 40 06/01/23 06:56 Oxygen Flow Rate (L/min) 4 Oxygen Delivery Method Nasal Cannula Weight: 99.6 kg Body Mass Index (BMI) 40.4 Intake & Output: Intake and Output for Last 24 Hours 05/30/23 05/31/23 06/01/23 23:59 23:59 23:59 Intake Total 7.84 / 16.60 1866.68 / 1887.78 173.1 / 173.1 Output Total 1875 / 1875 400 / 400 Balance 7.84 / -23.40 -8.32 / 12.78 -226.9 / -226.9 Lab / Micro Data 06/01/23 03:10 06/01/23 03:10 Labs: Laboratory Results - last 24 hr 05/30/23 20:30: Total Creatine Kinase 119, Triglycerides 113 05/31/23 11:34: POC Glucose 305 H 05/31/23 17:18: POC Glucose 282 H 05/31/23 22:23: POC Glucose 260 H 06/01/23 00:21: POC Glucose 269 H 06/01/23 03:10: WBC 13.3 H, RBC 3.47 L, Hgb 10.0 L, Hct 32.0 L, MCV 92.2, MCH 28.8, MCHC 31.3 L, RDW Std Deviation 42.5, RDW Coeff of Malcom 12.6, Plt Count 295,MPV 10.4, Immature Gran % (Auto) 0.900, Neut % (Auto) 86.9 H, Lymph % (Auto) 6.5L, Cooke % (Auto) 5.6, Eos % (Auto) 0.0, Baso % (Auto) 0.1, Absolute Neuts (auto)11.6 H, Absolute Lymphs (auto) 0.86, Nucleated RBC % 0, Sodium 137, Potassium 3.9, Chloride 102, Carbon Dioxide 30.0, Anion Gap 5, BUN 25 H, Creatinine 0.91, Estim Creat Clear Calc 42.79, Est GFR (MDRD) Af Amer 78, Est GFR (MDRD) Non-Af 65, BUN/Creatinine Ratio 27.4 H, Glucose 256 H, Calcium 8.8, Total Bilirubin 0.30, AST 18, ALT 60 H, Alkaline Phosphatase 111, Total Protein 6.0 L, Albumin 2.9 L, Globulin 3.1, Albumin/Globulin Ratio 0.9 06/01/23 05:40: POC Glucose 212 H Micro: Microbiology 05/31/23 00:20 Sputum, Induced/Lukens Gram Stain - Final Rhythm Strip Rhythm Strip: Sinus Rhythm Rate: 86 Ectopy: None Physical Exam Narrative General: Alert, oriented, no apparent distress HEENT: Atraumatic, normocephalic Eyes: Anicteric, normal conjunctiva, extraocular movements grossly intact Neck: Supple Respiratory: Somewhat increased respiratory rate, diminished at the bases Cardiovascular: Regular rate and rhythm GI: Soft, nontender, nondistended Extremities: No edema Musculoskeletal: Moving all extremities Neuro: No overt focal neurological deficits Skin: No rashes appreciated, has skin tags in thickened nails Psych: Cooperative appears anxious Assessment & Plan Assessment/Plan (1) Atrial fibrillation with rapid ventricular response: (2) Cardiac arrest with pulseless electrical activity: (3) COPD exacerbation: PLAN: Plan D/c'd on the morning of presentation after admit for aceopd and pneumonia. [id number] female came to ED after discharge with increased respiratory distress, tachypnea and hypoxia and then CODE BLUE blue after CTA chest, successfully ROSC and then admitted in ICU. #Acute cardiopulmonary arrest after CTA chest concern for possible anaphylactic reaction from IV contrast: Patient is being admitted in ICU. In her allergy list it is mention prednisone causes some mood changes which is known side effect of prednisone/steroid and hives with red dye. ER physician also said patient tongue was swollen and redness of the skin which improved later in the ED. Continue IV Solu-Medrol. Patient is intubated. Had successful ACLS/BLS lasted for 14 minutes with 3 doses of epinephrine. ABG 7.18/68/391 bicarb 28. Bicarb in BMP is 13. Women Designer consulted -05/31: Remains intubated in ICU, echo pending, still some tongue swelling stillremain intubated today and reeval tomorrow -06/01: Extubated, monitor in ICU today, remains on steroids. Likely secondary to anaphylactic reaction but cannot rule out cardiac cause, echo pending, cardiology consulted now that patient awake and noted to be neurologically intact #Acute combined respiratory failure on chronic hypoxic respiratory failure due to acute exacerbation of COPD most likely due to bilateral lower lobes pneumoniaorganism unspecified, prior to present admission. : Continue bronchodilators DuoNeb every 4 hourly, IV Solu-Medrol, incentive/Pep after extubation, Mucinex. Prior to intubation, chest x-ray initially reviewed shows no acute infiltrate and reported normal. Started on IV ceftriaxone. Continue doxycycline. Patientcompleted azithromycin course. Patient just had COVID-19 PCR reported normal, respiratory panel normal and urinary antigens normal on 05/29/2023. She had COVID-vaccine and booster. Blood cultures x2 on 05/[address] still pending. Patient follows Dr. Nuno in pulmonary clinic. -05/31: Patient remains on IV Solu-Medrol and nebs, on Rocephin and Doxy, chest x-ray prior to intubation with no acute infiltrate, ICU/pulm consulted, sputum sample obtained and pending -06/01: On steroids, extubated, continue monitoring in ICU, on empiric antibiotics but will likely be able to discontinue #Transient A-fib after ACLS with history of CAD status post PCI ostial diagonal and mid LAD 12/26/2018 : Patient has been in sinus rhythm during previous EKG andEKG done prior to CODE BLUE. It is normal sinus rhythm 92 bpm. After CODE BLUEit was A- fib 138 bpm, QTc 4 8 8 ms. QRS 84 ms. Repeat 2D echo as patient had cardiopulmonary arrest. Patient was successfully cardioverted to sinus rhythm after 300 J by ER physician. Currently in sinus rhythm. Patient was admitted for unstable angina in December 2022 and at that time cardiac cath was done for abnormal stress test. Cardiac cath showed ostial lesion of jailed diagonal branch, patent LAD stent therefore no PCI was done. Continue losartan, metoprolol, isosorbide and Plavix. -05/31: Monitoring on telemetry, may be able to forego anticoagulation given this was Viviana cardiac arrest -06/01: Echo pending, monitor telemetry, as above #Chronic Diastolic CHF: 08/11/2021 echocardiogram with normal LV size, moderate concentric LVH, LV systolic function normal, EF 60%, pulmonary artery systolic pressure 40 mmHg, stage I diastolic dysfunction. Patient is on Lasix 20 mg along with potassium supplement continued. Patient not showing clinical features of acute heart failure exacerbation. -05/31: Monitor I's and O's, daily weights, continue Lasix -06/01: Weight stable thus far, continue to monitor, echo pending, remains on Lasix #Diabetes mellitus type II: Continue home dose of Lantus insulin and lispro insulin. Currently NPO. accu checks every 6 hourly with Humalog sliding scale coverage. Start tube feed in the morning if still not extubated. -05/31: Continue to monitor glucose and adjust as indicated -06/01: Sliding scale every 6 and insulin glargine 30 twice daily #Hypertensive urgency - Blood pressure was high in the ED. BP still 156/97. Continue home regimen including metoprolol, losartan, isosorbide. -05/31: BP in ED 193/91, has improved to 136/57 this a.m., continue present management #Hyperlipidemia: Continue home statin regimen. Fasting profile in December 2022 within normal limit LDL 44, HDL 55. Continue high intensity atorvastatin. #Chronic normocytic anemia: Admission hemoglobin 10.9 g. On baseline. Plateletcount normal. #Anxiety and depression: Hold risperidone, citalopram, alprazolam home regimen as patient is sedated on propofol and fentanyl drip -06/01: We will resume home medications #Morbid obesity -BMI 40.6 kg/m? -Complicates treatment, prognosis, outcomes -Recommend weight loss and lifestyle changes #Other comorbidities include obstructive sleep apnea, former smoker: DVT prophylaxis: Lovenox 40 mg subcu daily. Time spent in the patient's overall evaluation,decision-making process, review of diagnostic data, adjustment of management, discussion with other providers, nursing nursing and ancillary staff involved in patient's care documentation, 40minutes Charges/Coding Visit Charges Inpatient E&M: 24541 Subs Hosp L2 10/932 <Electronically signed by Enid Hernandez MD> Cosigner Signature (if applicable): CC: ~ Signed [facility] Work Phone: 1([phone]) 223-594010-23-2023 Consult note Author Haroon Nuno [facility] May 31, 2023 1:59pm Note Date/Time May 31, 2023 7 :29am [facility] Medical Records Department [address] [place] [address] Consultation - Women Designer 05/31/23721 MR#: [id number] Acct: [id number] Name: JEANNA VARGAS Rep #:[id number] : 1950 72 From: Haroon Nuno MD PCP: Dr. Billy Madera MD Status:A DM IN Location: ICU ICU01-1 Assessment & Plan Assessment/Plan (1) Atrial fibrillation with rapid ventricular response: (2) Cardiac arrest with pulseless electrical activity: (3) Anaphylaxis: QUALIFIERS: Encounter type: initial encounter Qualified Code(s): T78.2XXA - Anaphylactic shock, unspecified, initial encounter (4) Respiratory failure: QUALIFIERS: Chronicity: acute on chronic Respiratory failure complication: hypercapnia Qualified Code(s): J96.22 - Acute and chronic respiratoryfailure with hypercapnia PLAN: Plan RECOMMENDATIONS: 1. Continue antibiotics and steroids for now 2. Aggressive control of blood pressure 3. Wean oxygen as tolerated 4. Await results of culture 5. Okay to leave the intensive care unit from my perspective IMPRESSIONS: 1. Acute on chronic combined respiratory failure secondary to cardiopulmonary arrest secondary to anaphylaxis Patient does have significant underlying lung disease, but likely had an element of anaphylaxis leading to an arrest. It is unclear if this is secondaryto a respiratory or cardiac etiology. Patient appears to have responded well tocurrent therapy. However, patient continues to have some lip and tongue swelling, so we will hold off on any extubation attempts for another 24 hours. ABG shows adequate oxygenation and ventilation on the current settings. Patientis on empiric antibiotics, but has received multiple doses of antibiotics recently. There was a question of upper lobe infiltrates. Patient does not appear to have any anoxic injury associated with this event, but will have to wait for extubation and reevaluate. 2. Hypertensive emergency/anxiety disorder Patient with significant decompensation when systolics were greater than 190. Unclear if this is related to anxiety versus having anxiety as a result ofher pulmonary edema. Aggressively control blood pressure following discontinuation of propofol. Defer to primary service if cardiology needs to beinvolved. 3. A-fib with RVR status post cardioversion Patient noted to have A-fib with RVR on ROSC. Patient did receive a cardioversion. This would exacerbate patient's underlying diastolic heart failure, but x-ray appears to show patient is tolerating relatively well. Patient is back on her baseline medications. 3. 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 Patient has had significant issues with anxiety in the past.. Patient would likely benefit fromnocturnal CPAP on extubation, but has not tolerated this in the past. TIME: 38 minutes critical care time spent addressing patient's acute on chronic respiratory failure, anaphylaxis, arrest, review of all data and collaboration with care team HPI Consult Data Date of Consult: 05/31/23 HPI Narrative HPI Narrative: JEANNA VARGAS is a 72 F, with past medical history listed below and well-known to me from the outpatient office, who presents to [facility] on 05/30/2023 secondary to shortness of breath. Patient is on 4 L/min supplementaloxygen at home at baseline and was recently hospitalized secondary to pneumonia. Patient had been discharged on the day of ER presentation, but was unable to get her medications filled and started to have progressive shortness of breath. Patient stated her oxygen dropped into the 80s on her baseline oxygen therapy. Patient also reportedly had had some hemoptysis. In the ER, patient was afebrile, but tachycardic at 107 bpm and hypertensive at 193/91. Patient was noted to have a white blood cell count of 12.4, hemoglobin of 10.9 and platelets of 368. Chemistries were relatively unremarkable except for glucose of 201, troponin of 20 and a bicarbonate of 30. There was some concern for PE, so a CTA of the chest was obtained. Reportedly, during the CTA patient became progressively more short of breath and was brought back to the emergency department. Patient was noted to have erythema of her chest and face and then went apneic. Patient received 3 rounds of epinephrine and was emergently intubated patient did receive some Benadryl. Patient had noted to have swelling of the tongue and redness of the skin significantly improved following interventions. Patient did develop A-fib with RVR after achieving ROSC. Patient did have a cardioversion and no further A-fib has been noted. Patient was admitted to the intensive care unit for further evaluation. In the intensive care unit, patient has been able to be weaned to minimal FiO2 requirements. Patient did not have a spontaneous breathing trial this morning as she is still noted to have some tongue and lip swelling along with brief intubation. ABG after intubation showed normalization of patient's acute hypercarbic respiratory failure. Patient's blood pressures have been doing okay overnight. [facility] Medical History Anemia Anxiety and depression Asthma with COPD Atherosclerotic heart disease of [place] coronary artery without angina pectoris Back pain Chest pain Chronic back pain Chronic respiratory failure COPD (chronic obstructive pulmonary disease) Diastolic CHF Former smoker Hepatitis HLD (hyperlipidemia) Hypertension Morbid obesity Obesity MARK treated with BiPAP Psoriasis Smoking greater than 40 pack years Thyroid nodule Type 2 diabetes mellitus Home Medications Handicap Placard #1 ea 12/12/20 [Rx Last Taken Unknown] bisacodyl 5 mg tablet,delayed release (Dulcolax (bisacodyl)) 5 mg PO QHS PRN constipation 30 days #30 tabs 11/13/21 [Rx Last Taken Unknown] pen needle, diabetic 32 gauge x 32" #50 ea 02/11/22 [Rx Last Taken Unknown] blood sugar diagnostic (True Metrix Glucose Test Strip) #100 ea 09/11/22 [Rx Last Taken Unknown] blood-glucose meter (True Metrix Glucose Meter) #1 ea 09/11/22 [Rx Last Taken Unknown] albuterol sulfate 90 mcg/actuation aerosol inhaler 2 puff inhalation Q6H PRN shortness of breath or wheezing #18 grams 11/06/22 [Rx Last Taken Unknown] ipratropium 0.5 mg-albuterol 3 mg (2.5 mg base)/3 mL nebulization soln 3 ml inhalation Q4H PRN PRN SOB &/OR WHEEZING #180 mL 11/10/22 [Rx Last Taken Unknown] cane #1 ea 11/16/22 [Rx Last Taken Unknown] citalopram 40 mg tablet 40 mg PO QHS depression #90 tabs 11/16/22 [Rx Last Taken Unknown] risperidone 1 mg tablet 1 mg PO QHS anxiety #90 tabs 12/07/22 [Rx Last Taken Unknown] isosorbide mononitrate 60 mg tablet,extended release 24 hr 60 mg PO DAILY BP #90tabs 12/26/22 [Rx Last Taken Unknown] nitroglycerin 0.4 mg sublingual tablet 0.4 mg sublingual Q5-15M PRN Pain #30 tabs 12/26/22 [Rx Last Taken Unknown] flash glucose sensor ([employer] Tanika 2 Sensor kit) #2 ea 01/06/23 [Rx Last Taken Unknown] atorvastatin 80 mg tablet 80 mg PO QHS cholesterol 01/26/23 [History Last Taken Unknown] clopidogrel 75 mg tablet 75 mg PO DAILY blood thinner 01/26/23 [History Last Taken Unknown] furosemide 20 mg tablet (Lasix) 20 mg PO DAILY diuretic 01/26/23 [History Last Taken Unknown] losartan 25 mg tablet 25 mg PO DAILY blood pressure 01/26/23 [History Last Taken Unknown] metoprolol tartrate 25 mg tablet 12.5 mg PO BID blood pressure 01/26/23 [History Last Taken Unknown] flash glucose scanning reader ([employer] Tanika 2 [place]) #1 ea 03/23/23 [Rx Last Taken Unknown] ondansetron HCl 4 mg tablet 4 mg PO Q6H PRN nausea and vomiting #14 tabs 04/16/23 [Rx Last Taken Unknown] sucralfate 1 gram tablet (Carafate) 1 g PO TID PRN acid reflux #20 tabs 04/16/23[Rx Last Taken Unknown] insulin glargine 100 unit/mL (3 mL) subcutaneous pen (Basaglar KwikPen U-100 Insulin) 36 unit (0.36 mL) subcut DAILY diabetic managment #42 mL 05/06/23 [Rx Last Taken Unknown] insulin lispro 100 unit/mL subcutaneous pen (Humalog KwikPen (U-100) Insulin) 20unit (0.2 mL) subcut TID diabetes #72 mL 05/06/23 [Rx Last Taken Unknown] alprazolam 0.25 mg tablet 0.25 mg PO QHS anxiety #30 tabs 05/12/23 [Rx Last Taken Unknown] pantoprazole 40 mg tablet,delayed release 40 mg PO BID stomach #180 tabs 05/20/23 [Rx Last Taken Unknown] potassium chloride 20 mEq tablet,extended release 20 meq PO DAILY #3 tabs 05/25/23 [Rx Last Taken Unknown] doxycycline hyclate 100 mg tablet 100 mg PO BID #10 tabs 05/30/23 [Rx Last Taken Unknown] prednisone 20 mg tablet 40 mg (2 x 20 mg) PO DAILY #10 tabs 05/30/23 [Rx Last Taken Unknown] Allergy/AdvReac Type Severity Reaction Status Date / Time Iodinated Contrast Media Allergy Severe Anaphylaxis Verified 05/31/23 06:34 amoxicillin [Amoxicillin] Allergy Intermediate Rash Verified 05/28/23 22:22 hydrocodone Allergy Intermediate SWELLING Verified 05/28/23 22:22 gabapentin [From Neurontin] Allergy Shortness Verified 05/28/23 22:22 of breath levofloxacin [From Levaquin] Allergy Hives Verified 05/28/23 22:22 pseudoephedrine HCl Allergy Shortness Verified 05/28/23 22:22 [From Sudafed] of breath red dye Allergy Hives Verified 05/28/23 22:22 prednisone AdvReac Severe mean mood Verified 05/28/23 22:22 clonazepam [From Klonopin] AdvReac Depression Verified 05/28/23 22:22 codeine AdvReac HEADACHE Verified 05/28/23 22:22 Family History Brother Heart disease Mother Colon cancer Heart disease Surgical History History of cholecystectomy History of left heart catheterization (LHC) (~09/23/20) Stented coronary artery (12/28/18) Social History Smoking Status: Former smoker pack-years: 40 how long ago did patient quit smokin year ago alcohol intake: never substance use type: does not use caffeine: Yes Type: carbonated beverages and tea what type of physical activity do you participate in: none ROS Review of Systems ROS Unobtainable: due to endotracheal tube Physical Exam Const Constitutional Narrative: Intubated and sedated. RASS 0. General Appearance: cooperative, comfortable, well kempt and well developed Exam Limitations: no limitations Nutritional Appearance: morbidly obese HEENT normocephalic, head/scalp atraumatic and moist oral mucous membranes HEENT Narrative: no thrush noted. Some tongue and lip swelling noted. Eyes PERRL, EOMs intact bilaterally and conjunctivae normal Eyes Narrative: No scleral icterus Neck no lymphadenopathy and supple Neck Narrative: Trachea midline, no thyroid enlargement Resp normal respiratory effort, no retractions and no use of accessory muscles Resp Narrative: Few scattered end expiratory wheezes Auscultation: wheezes; Negative for rales or rhonchi Cardio regular rate, regular rhythm, S1 normal heart sound, S2 normal heart sound, no murmurs, no rub, no gallops and no clicks GI normal to inspection, nondistended, normoactive bowel sounds, soft to palpation and non-tender Extremity no clubbing, cyanosis or edema Extremity Narrative: Pedal pulses are 2+, onychomycosis bilateral lower extremities Skin no rashes or lesions noted, no wounds, skin turgor normal and no jaundice Neuro CN's II-XII intact bilaterally, moves all extremities and no focal motor deficits Neuro Narrative: Very minimal generalized weakness with proximal musculature being weaker than distal Speech: speech normal Psych affect normal Medical Records Data Attestation: I reviewed the patient's medical records Lab / Micro Data Attestation: I reviewed the patient's lab results. 05/31/23 04:17 05/31/23 04:17 Labs: Laboratory Results - last 24 hr 05/30/23 20:30: WBC 12.4 H, RBC 3.78 L, Hgb 10.9 L, Hct 34.8 L, MCV 92.1, MCH 28.8, MCHC 31.3 L, RDW Std Deviation 41.3, RDW Coeff of Malcom 12.4, Plt Count 368,MPV 10.6, Immature Gran % (Auto) 1.100 H, Neut % (Auto) 76.7 H, Lymph % (Auto) 14.6 L, Cooke % (Auto) 5.4, Eos % (Auto) 1.4, Baso % (Auto) 0.8, Absolute Neuts (auto) 9.5 H, Absolute Lymphs (auto) 1.80, Nucleated RBC % 0, D-Dimer Quant (PE/DVT) 0.72 H*, Sodium 139, Potassium 3.5, Chloride 102, Carbon Dioxide 30.0, Anion Gap 7, BUN 15, Creatinine 0.84, Estim Creat Clear Calc 48.58, Est GFR (MDRD) Af Amer 86, Est GFR (MDRD) Non-Af 71, BUN/Creatinine Ratio 17.9, Glucose 201 H, Calcium 9.5, Magnesium 1.8, Troponin I High Sens 20 05/31/23 04:17: WBC 18.3 H, RBC 3.61 L, Hgb 10.4 L, Hct 34.0 L, MCV 94.2, MCH 28.8, MCHC 30.6 L, RDW Std Deviation 42.6, RDW Coeff of Malcom 12.4, Plt Count 350,MPV 10.6, Immature Gran % (Auto) 1.500 H, Neut % (Auto) 92.3 H, Lymph % (Auto) 2.8 L, Cooke % (Auto) 3.0, Eos % (Auto) 0.1, Baso % (Auto) 0.3, Absolute Neuts (auto) 16.9 H, Absolute Lymphs (auto) 0.52 L, Nucleated RBC % 0, Sodium 135 L, Potassium 4.0, Chloride 99, Carbon Dioxide 27.0, Anion Gap 9, BUN 17, Creatinine0.99, Estim Creat Clear Calc 39.33, Est GFR (MDRD) Af Amer 71, Est GFR (MDRD) Non-Af 59 L, BUN/Creatinine Ratio 17.2, Glucose 338 H, Calcium 8.4 L, Phosphorus3.2, Magnesium 2.0, Total Bilirubin 0.40, AST 47 H, ALT 81 H, Alkaline Phosphatase 118 H, Total Protein 5.8 L, Albumin 2.9 L, Globulin 2.9, Albumin/Globulin Ratio 1.0 ABG Data ABG results: ABG 05/30/23 05/31/23 23:03 02:06 Specimen Type ART ART Sample Site L Radial L Radial pH 7.18 L* 7.38 Bicarbonate Actual 25.5 25.3 Total CO2 28 27 Base Excess -3 L 0 O2 Saturation 100 H 92 L O2 % 100.0 40.0 ABG pCO2 67.9 H* 42.3 ABG pO2 391 H* 65 L Dima Test N/A N/A Respiration Rate 14 14 O2 Delivery Device Adult Vent Adult Vent Vent Mode AC AC Tidal Volume 450.0 450.0 POC PEEP 5 5 Crit Call To/Read Back Yes Blood Gas Notified Whom Dr Holland Blood Gas Notified Time 23:05:17 Attestation: I personally reviewed and interpreted this ABG as follows: Interpretation: See HPI Rhythm Strip Rhythm Strip: Sinus Rhythm Rate: 92 Ectopy: None Radiology Impression Chest X-Ray 05/30/23 21:05 IMPRESSION: Normal x-ray examination of the chest. Electronically Signed: Max Braxton MD at 21:21 EDT , Chest CTA 05/30/23 21:31 IMPRESSION: Bilateral streaky and linear atelectasis. Trace bilateral pleural effusions. Distal pulmonary artery branch vessel evaluation is suboptimal secondary to timing of contrast bolus as well as respiratory motion, however, there is no obvious proximal pulmonary embolus. Bilateral hypoattenuating thyroid lesions with dominant 18 mm lesion on the right. Splenomegaly new from 2014. Electronically Signed: Bolivar Byrd MD at 0:51 EDT , Chest X-Ray 05/30/23 22:25 IMPRESSION: Endotracheal tube tip is approximately 71 mm from the susi. Chest with no acute disease. Electronically Signed: Bolivar Byrd MD at 0:53 EDT , Charges/Coding Procedures Hospitalists Procedures: 35281 Critial Care 1st Hr 05/31/23 1359 <Electronically signed by Haroon Nuno MD> Cosigner Signature (if applicable): CC: SYMONE Givens; Dr. Haroon Nuno MD; Dr. Korey Fraser DO; Dr. Billy Madera MD; Dr. Inez Bello MD; Dr. Dimitry Olmedo MD; Dr. Nico Sweet MD; Dr. Chapito Trejo MD~ Signed [facility] Work Phone: 1([phone]) 186-382810-23-2023 Progress note Author Enid Hernandez [facility] May 31, 2023 10:35am Note Date/Time May 31, 2023 7 :37am [facility] Medical Records Department [address] [place] [address] Progress Note - Hospitalist 05/31/23 0731 MR#: [id number] Acct: [id number] Name: JEANNA VARGAS Rep #:[id number] : 1950 72 From: Enid Hernandez MD PCP: Dr. Billy Madera MD Status:A DM IN Location: ICU ICU01-1 Reason for Visit Reason for Visit: Diagnoses Cardiac arrest, cause unspecified (05/30/23) Unspecified atrial fibrillation (05/30/23) Chronic obstructive pulmonary disease with (acute) exacerbation (05/30/23) Subjective Subjective Remains intubated, does open eyes some and look around Objective Data Objective Data Vital Signs: Vital Signs Temp Pulse Resp BP Pulse Ox O2 Del Method O2 Flow Rate 99.7 F H 81 14 136/57 H 94 Mechanical Ventilator 4 05/31/23 06:00 05/31/23 07:00 05/31/23 07:00 05/31/23 07:00 05/31/23 07:00 05/31/23 07:00 05/30/23 22:26 FiO2 30 05/31/23 07:00 Oxygen Flow Rate (L/min) 4 Oxygen Delivery Method Mechanical Ventilator Weight: 100 kg Body Mass Index (BMI) 40.6 Intake & Output: Intake and Output for Last 24 Hours 05/29/23 05/30/23 05/31/23 23:59 23:59 23:59 Intake Total 7.84 / 16.60 212.20 / 212.20 Output Total 475 / 475 Balance 7.84 / -23.40 -262.80 / -262.80 Lab / Micro Data 05/31/23 04:17 05/31/23 04:17 Labs: Laboratory Results - last 24 hr 05/30/23 20:30: WBC 12.4 H, RBC 3.78 L, Hgb 10.9 L, Hct 34.8 L, MCV 92.1, MCH 28.8, MCHC 31.3 L, RDW Std Deviation 41.3, RDW Coeff of Malcom 12.4, Plt Count 368,MPV 10.6, Immature Gran % (Auto) 1.100 H, Neut % (Auto) 76.7 H, Lymph % (Auto) 14.6 L, Cooke % (Auto) 5.4, Eos % (Auto) 1.4, Baso % (Auto) 0.8, Absolute Neuts (auto) 9.5 H, Absolute Lymphs (auto) 1.80, Nucleated RBC % 0, D-Dimer Quant (PE/DVT) 0.72 H*, Sodium 139, Potassium 3.5, Chloride 102, Carbon Dioxide 30.0, Anion Gap 7, BUN 15, Creatinine 0.84, Estim Creat Clear Calc 48.58, Est GFR (MDRD) Af Amer 86, Est GFR (MDRD) Non-Af 71, BUN/Creatinine Ratio 17.9, Glucose 201 H, Calcium 9.5, Magnesium 1.8, Troponin I High Sens 20 05/31/23 04:17: WBC 18.3 H, RBC 3.61 L, Hgb 10.4 L, Hct 34.0 L, MCV 94.2, MCH 28.8, MCHC 30.6 L, RDW Std Deviation 42.6, RDW Coeff of Malcom 12.4, Plt Count 350,MPV 10.6, Immature Gran % (Auto) 1.500 H, Neut % (Auto) 92.3 H, Lymph % (Auto) 2.8 L, Cooke % (Auto) 3.0, Eos % (Auto) 0.1, Baso % (Auto) 0.3, Absolute Neuts (auto) 16.9 H, Absolute Lymphs (auto) 0.52 L, Nucleated RBC % 0, Sodium 135 L, Potassium 4.0, Chloride 99, Carbon Dioxide 27.0, Anion Gap 9, BUN 17, Creatinine0.99, Estim Creat Clear Calc 39.33, Est GFR (MDRD) Af Amer 71, Est GFR (MDRD) Non-Af 59 L, BUN/Creatinine Ratio 17.2, Glucose 338 H, Calcium 8.4 L, Phosphorus3.2, Magnesium 2.0, Total Bilirubin 0.40, AST 47 H, ALT 81 H, Alkaline Phosphatase 118 H, Total Protein 5.8 L, Albumin 2.9 L, Globulin 2.9, Albumin/Globulin Ratio 1.0 ABG Data ABG results: ABG 05/30/23 05/31/23 23:03 02:06 Specimen Type ART ART Sample Site L Radial L Radial pH 7.18 L* 7.38 Bicarbonate Actual 25.5 25.3 Total CO2 28 27 Base Excess -3 L 0 O2 Saturation 100 H 92 L O2 % 100.0 40.0 ABG pCO2 67.9 H* 42.3 ABG pO2 391 H* 65 L Dima Test N/A N/A Respiration Rate 14 14 O2 Delivery Device Adult Vent Adult Vent Vent Mode AC AC Tidal Volume 450.0 450.0 POC PEEP 5 5 Crit Call To/Read Back Yes Blood Gas Notified Whom Dr Holland Blood Gas Notified Time 23:05:17 Radiography Diagnostic Testing: Radiology Impression Chest X-Ray 05/30/23 21:05 IMPRESSION: Normal x-ray examination of the chest. Electronically Signed: Max Braxton MD at 21:21 EDT , Chest CTA 05/30/23 21:31 IMPRESSION: Bilateral streaky and linear atelectasis. Trace bilateral pleural effusions. Distal pulmonary artery branch vessel evaluation is suboptimal secondary to timing of contrast bolus as well as respiratory motion, however, there is no obvious proximal pulmonary embolus. Bilateral hypoattenuating thyroid lesions with dominant 18 mm lesion on the right. Splenomegaly new from 2014. Electronically Signed: Bolivar Byrd MD at 0:51 EDT , Chest X-Ray 05/30/23 22:25 IMPRESSION: Endotracheal tube tip is approximately 71 mm from the susi. Chest with no acute disease. Electronically Signed: Bolivar Byrd MD at 0:53 EDT , Rhythm Strip Rhythm Strip: Sinus Rhythm Rate: 92 Ectopy: None Physical Exam Narrative General: Intubated and sedated HEENT: Atraumatic, normocephalic Eyes: Eyes closed but have some spontaneous opening Neck: Supple Respiratory: Mechanically ventilated Cardiovascular: Regular rate and rhythm GI: Soft, nontender, nondistended Extremities: No edema Musculoskeletal: Presently sedated and not moving extremities spontaneously Neuro: Unable to participate in neuro exam secondary to intubated and sedated Skin: No rashes appreciated Psych: Unable to cooperate secondary to intubated and sedated Assessment & Plan Assessment/Plan (1) Atrial fibrillation with rapid ventricular response: (2) Cardiac arrest with pulseless electrical activity: (3) COPD exacerbation: PLAN: Plan D/c'd on the morning of presentation after admit for aceopd and pneumonia. [id number] female came to ED after discharge with increased respiratory distress, tachypnea and hypoxia and then CODE BLUE blue after CTA chest, successfully ROSC and then admitted in ICU. #Acute cardiopulmonary arrest after CTA chest concern for possible anaphylactic reaction from IV contrast: Patient is being admitted in ICU. In her allergy list it is mention prednisone causes some mood changes which is known side effect of prednisone/steroid and hives with red dye. ER physician also said patient tongue was swollen and redness of the skin which improved later in the ED. Continue IV Solu-Medrol. Patient is intubated. Had successful ACLS/BLS lasted for 14 minutes with 3 doses of epinephrine. ABG 7.18/68/391 bicarb 28. Bicarb in BMP is 13. Women Designer consulted -05/31: Remains intubated in ICU, echo pending, still some tongue swelling stillremain intubated today and reeval tomorrow #Acute combined respiratory failure on chronic hypoxic respiratory failure due to acute exacerbation of COPD most likely due to bilateral lower lobes pneumoniaorganism unspecified, prior to present admission. : Continue bronchodilators DuoNeb every 4 hourly, IV Solu-Medrol, incentive/Pep after extubation, Mucinex. Prior to intubation, chest x-ray initially reviewed shows no acute infiltrate and reported normal. Started on IV ceftriaxone. Continue doxycycline. Patientcompleted azithromycin course. Patient just had COVID-19 PCR reported normal, respiratory panel normal and urinary antigens normal on 05/29/2023. She had COVID-vaccine and booster. Blood cultures x2 on 05/[address] still pending. Patient follows Dr. Nuno in pulmonary clinic. -05/31: Patient remains on IV Solu-Medrol and nebs, on Rocephin and Doxy, chest x-ray prior to intubation with no acute infiltrate, ICU/pulm consulted, sputum sample obtained and pending #Transient A-fib after ACLS with history of CAD status post PCI ostial diagonal and mid LAD 12/26/2018 : Patient has been in sinus rhythm during previous EKG andEKG done prior to CODE BLUE. It is normal sinus rhythm 92 bpm. After CODE BLUEit was A- fib 138 bpm, QTc 4 8 8 ms. QRS 84 ms. Repeat 2D echo as patient had cardiopulmonary arrest. Patient was successfully cardioverted to sinus rhythm after 300 J by ER physician. Currently in sinus rhythm. Patient was admitted for unstable angina in December 2022 and at that time cardiac cath was done for abnormal stress test. Cardiac cath showed ostial lesion of jailed diagonal branch, patent LAD stent therefore no PCI was done. Continue losartan, metoprolol, isosorbide and Plavix. -05/31: Monitoring on telemetry, may be able to forego anticoagulation given this was Viviana cardiac arrest #Chronic Diastolic CHF: 08/11/2021 echocardiogram with normal LV size, moderate concentric LVH, LV systolic function normal, EF 60%, pulmonary artery systolic pressure 40 mmHg, stage I diastolic dysfunction. Patient is on Lasix 20 mg along with potassium supplement continued. Patient not showing clinical features of acute heart failure exacerbation. -05/31: Monitor I's and O's, daily weights, continue Lasix #Diabetes mellitus type II: Continue home dose of Lantus insulin and lispro insulin. Currently NPO. accu checks every 6 hourly with Humalog sliding scale coverage. Start tube feed in the morning if still not extubated. -05/31: Continue to monitor glucose and adjust as indicated #Hypertensive urgency - Blood pressure was high in the ED. BP still 156/97. Continue home regimen including metoprolol, losartan, isosorbide. -05/31: BP in ED 193/91, has improved to 136/57 this a.m., continue present management #Hyperlipidemia: Continue home statin regimen. Fasting profile in December 2022 within normal limit LDL 44, HDL 55. Continue high intensity atorvastatin. #Chronic normocytic anemia: Admission hemoglobin 10.9 g. On baseline. Plateletcount normal. #Anxiety and depression: Hold risperidone, citalopram, alprazolam home regimen as patient is sedated on propofol and fentanyl drip #Morbid obesity -BMI 40.6 kg/m? -Complicates treatment, prognosis, outcomes -Recommend weight loss and lifestyle changes #Other comorbidities include obstructive sleep apnea, former smoker: DVT prophylaxis: Lovenox 40 mg subcu daily. Charges/Coding Visit Charges Inpatient E&M: 64531 Subs Hosp L2 05/31/23 1035 <Electronically signed by Enid Hernandez MD> Cosigner Signature (if applicable): CC: ~ Signed [facility] Work Phone: [phone]) 337-836510-23-2023 History and physical note Author Nico Sweet [facility] May 31, 2023 12:45am Note Date/Time May 30, 2023 1 0:59pm [facility] Medical Records Department [address] [place] [id number] H&P Exam - Hospitalist 05/30/23 2256 MR#: [id number] Acct: [id number] Name: JEANNA VARGAS Rep #:[id number] : 1950 72 From: Nico Nj PCP: Dr. Billy Madera MD Status:A DM IN Location: ICU ICU01-1 HPI - General General Date of Admission: 05/30/23 Date of Service: 05/30/23 Chief Complaint: Shortness of breath, hypoxia, increased oxygen requirement. CODE BLUE after CTPA HPI Narrative JEANNA VARGAS, is a 72 F who was discharged today in the morning then went home breathing on baseline 4 L of oxygen. In the evening tonight, her pulse ox dropped to 80s on 4 L of oxygen. She was brought by EMS for difficulty breathing getting worse and EMS put on a nonrebreather 12 L of oxygen and brought to ED.Prior to that she was admitted on 05/29/2023 and discharged today after COPD exacerbation from pneumonia and discharged on doxycycline and prednisone. EMS vitals shows blood pressure 226/96 respiratory rate 26 and heart rate 132/min.Blood pressure was elevated during previous admission too. ED course: In ED, her blood pressure was initially high 193/91, respiratory rate 29/min. She was given IV Solu-Medrol and COPD treatment therefore oxygen requirement came down to baseline 4 L and blood pressure was normalized. Then she was sent for CTPA for elevated D-dimer 0.72. Age-adjusted D-dimer 0.71. During CT scan patient became more short of breath and her saturation dropped hebecame respiratory rate and started on umbo bagging. Then she started breathingand no palpable pulses therefore CODE BLUE was called and CPR was started. During CPR rhythm was PEA, 3 doses of epinephrine was given and lasted for about14 minutes with ROSC. She was intubated during code and started on propofol drip. Billings catheter and OG was inserted. I ordered for fentanyl drip. As per the ER physician there is suspicion of anaphylactic reaction but she did not had prior history of contrast and she also got Solu-Medrol prior to that andshe will also need steroid during recent admission. In ED also she was tachycardic and went into A-fib probably due to epinephrine given during CODE BLUE. ED physician also noticed swelling of tongue and redness of his skin during CODE BLUE message significantly improved later in the ER. She was converted with 300 J in ER to sinus rhythm. Patient is further admitted in ICU for further care and evaluation [facility] Medical History Anemia Anxiety and depression Asthma with COPD Atherosclerotic heart disease of [place] coronary artery without angina pectoris Back pain Chest pain Chronic back pain Chronic respiratory failure COPD (chronic obstructive pulmonary disease) Diastolic CHF Former smoker Hepatitis HLD (hyperlipidemia) Hypertension Morbid obesity Obesity MARK treated with BiPAP Psoriasis Smoking greater than 40 pack years Thyroid nodule Type 2 diabetes mellitus Home Medications Handicap Placard #1 ea 12/12/20 [Rx Last Taken Unknown] bisacodyl 5 mg tablet,delayed release (Dulcolax (bisacodyl)) 5 mg PO QHS PRN constipation 30 days #30 tabs 11/13/21 [Rx Last Taken Unknown] pen needle, diabetic 32 gauge x 32" #50 ea 02/11/22 [Rx Last Taken Unknown] blood sugar diagnostic (True Metrix Glucose Test Strip) #100 ea 09/11/22 [Rx Last Taken Unknown] blood-glucose meter (True Metrix Glucose Meter) #1 ea 09/11/22 [Rx Last Taken Unknown] albuterol sulfate 90 mcg/actuation aerosol inhaler 2 puff inhalation Q6H PRN shortness of breath or wheezing #18 grams 11/06/22 [Rx Last Taken Unknown] ipratropium 0.5 mg-albuterol 3 mg (2.5 mg base)/3 mL nebulization soln 3 ml inhalation Q4H PRN PRN SOB &/OR WHEEZING #180 mL 11/10/22 [Rx Last Taken Unknown] cane #1 ea 11/16/22 [Rx Last Taken Unknown] citalopram 40 mg tablet 40 mg PO QHS depression #90 tabs 11/16/22 [Rx Last Taken Unknown] risperidone 1 mg tablet 1 mg PO QHS anxiety #90 tabs 12/07/22 [Rx Last Taken Unknown] isosorbide mononitrate 60 mg tablet,extended release 24 hr 60 mg PO DAILY BP #90tabs 12/26/22 [Rx Last Taken Unknown] nitroglycerin 0.4 mg sublingual tablet 0.4 mg sublingual Q5-15M PRN Pain #30 tabs 12/26/22 [Rx Last Taken Unknown] flash glucose sensor ([employer] Tanika 2 Sensor kit) #2 ea 01/06/23 [Rx Last Taken Unknown] atorvastatin 80 mg tablet 80 mg PO QHS cholesterol 01/26/23 [History Last Taken Unknown] clopidogrel 75 mg tablet 75 mg PO DAILY blood thinner 01/26/23 [History Last Taken Unknown] furosemide 20 mg tablet (Lasix) 20 mg PO DAILY diuretic 01/26/23 [History Last Taken Unknown] losartan 25 mg tablet 25 mg PO DAILY blood pressure 01/26/23 [History Last Taken Unknown] metoprolol tartrate 25 mg tablet 12.5 mg PO BID blood pressure 01/26/23 [History Last Taken Unknown] flash glucose scanning reader ([employer] Tanika 2 [place]) #1 ea 03/23/23 [Rx Last Taken Unknown] ondansetron HCl 4 mg tablet 4 mg PO Q6H PRN nausea and vomiting #14 tabs 04/16/23 [Rx Last Taken Unknown] sucralfate 1 gram tablet (Carafate) 1 g PO TID PRN acid reflux #20 tabs 04/16/23[Rx Last Taken Unknown] insulin glargine 100 unit/mL (3 mL) subcutaneous pen (Basaglar KwikPen U-100 Insulin) 36 unit (0.36 mL) subcut DAILY diabetic managment #42 mL 05/06/23 [Rx Last Taken Unknown] insulin lispro 100 unit/mL subcutaneous pen (Humalog KwikPen (U-100) Insulin) 20unit (0.2 mL) subcut TID diabetes #72 mL 05/06/23 [Rx Last Taken Unknown] alprazolam 0.25 mg tablet 0.25 mg PO QHS anxiety #30 tabs 05/12/23 [Rx Last Taken Unknown] pantoprazole 40 mg tablet,delayed release 40 mg PO BID stomach #180 tabs 05/20/23 [Rx Last Taken Unknown] potassium chloride 20 mEq tablet,extended release 20 meq PO DAILY #3 tabs 05/25/23 [Rx Last Taken Unknown] doxycycline hyclate 100 mg tablet 100 mg PO BID #10 tabs 05/30/23 [Rx Last Taken Unknown] prednisone 20 mg tablet 40 mg (2 x 20 mg) PO DAILY #10 tabs 05/30/23 [Rx Last Taken Unknown] Allergy/AdvReac Type Severity Reaction Status Date / Time amoxicillin [Amoxicillin] Allergy Intermediate Rash Verified 05/28/23 22:22 hydrocodone Allergy Intermediate SWELLING Verified 05/28/23 22:22 gabapentin [From Neurontin] Allergy Shortness Verified 05/28/23 22:22 of breath levofloxacin [From Levaquin] Allergy Hives Verified 05/28/23 22:22 pseudoephedrine HCl Allergy Shortness Verified 05/28/23 22:22 [From Sudafed] of breath red dye Allergy Hives Verified 05/28/23 22:22 prednisone AdvReac Severe mean mood Verified 05/28/23 22:22 clonazepam [From Klonopin] AdvReac Depression Verified 05/28/23 22:22 codeine AdvReac HEADACHE Verified 05/28/23 22:22 Family History Brother Heart disease Mother Colon cancer Heart disease Surgical History History of cholecystectomy History of left heart catheterization (LHC) (~09/23/20) Stented coronary artery (05/22/19) Social History Smoking Status: Former smoker pack-years: 40 how long ago did patient quit smokin year ago alcohol intake: never substance use type: does not use caffeine: Yes Type: carbonated beverages and tea what type of physical activity do you participate in: none ROS ROS Narrative Patient was intubated on ventilator before I saw her. Please see HPI. Patient has Billings catheter with clear urine about 300 mL. Review of Systems ROS Unobtainable: due to endotracheal tube Vital Signs Vital Signs Vital Signs: 05/30/23 20:20 05/30/23 20:29 05/30/23 20:57 Temperature 97.6 F L Temperature Source Oral Pulse Rate 107 H 96 Respiratory Rate 29 H 20 H Respiratory Effort Short of Breath Labored Respiratory Depth Shallow Respiratory Pattern Tachypnea Tachypnea Blood Pressure 193/91 H Blood Pressure Mean 125 Pulse Ox 96 Oxygen Delivery Method Nasal Cannula Nasal Cannula Oxygen Flow Rate (L/min) 4 4 05/30/23 20:44 Temperature Temperature Source Pulse Rate Respiratory Rate Respiratory Effort Respiratory Depth Respiratory Pattern Blood Pressure Blood Pressure Mean Pulse Ox 96 Oxygen Delivery Method Nasal Cannula Oxygen Flow Rate (L/min) 4 Weight Weight: 218 lb 14.704 oz Body Mass Index (BMI) 40.0 Physical Exam Narrative General: Sedated on propofol drip. Intubated. HEENT: Atraumatic, PERRLA, EOMI, Normocephalic Oral: ET and OG tube. Neck: Supple, No JVD, Negative Carotid Bruits Lungs: Air entry diminished in bilateral lung bases. No wheezing. On ventilator, AC control mode. Cardiovascular: Transient A-fib after CODE BLUE. Electrocardioversion with 300 J.. Sinus rhythm, no murmurs Abdomen: Bowel Sounds Present, Soft, Non Tender, Non-Distended : Billings catheter, clear urine. No renal angle tenderness. No suprapubic tenderness. Extremities: No edema, Capillary Refill Less than 3 Seconds Skin: No rashes, No breakdown Musculoskeletal: No Tenderness to Palpation of Joints or Extremities. Bilateralknee and hip joints arthritis. Neurological: Sedated, complete neuro exam unobtainable. Previously no acute focal neurological deficit. Psych/Mental Status: Sedated. Results Lab / Micro Data 05/30/23 20:30 05/30/23 20:30 Labs: Laboratory Results - last 24 hr 05/30/23 20:30: WBC 12.4 H, RBC 3.78 L, Hgb 10.9 L, Hct 34.8 L, MCV 92.1, MCH 28.8, MCHC 31.3 L, RDW Std Deviation 41.3, RDW Coeff of Malcom 12.4, Plt Count 368,MPV 10.6, Immature Gran % (Auto) 1.100 H, Neut % (Auto) 76.7 H, Lymph % (Auto) 14.6 L, Cooke % (Auto) 5.4, Eos % (Auto) 1.4, Baso % (Auto) 0.8, Absolute Neuts (auto) 9.5 H, Absolute Lymphs (auto) 1.80, Nucleated RBC % 0, D-Dimer Quant (PE/DVT) 0.72 H*, Sodium 139, Potassium 3.5, Chloride 102, Carbon Dioxide 30.0, Anion Gap 7, BUN 15, Creatinine 0.84, Estim Creat Clear Calc 48.58, Est GFR (MDRD) Af Amer 86, Est GFR (MDRD) Non-Af 71, BUN/Creatinine Ratio 17.9, Glucose 201 H, Calcium 9.5, Troponin I High Sens 20 Rhythm Strip Rhythm Strip: Sinus Rhythm Rate: 92 Ectopy: None Radiology Impression Chest X-Ray 05/30/23 21:05 IMPRESSION: Normal x-ray examination of the chest. Electronically Signed: Max Braxton MD at 21:21 EDT , Assessment & Plan Assessment/Plan (1) Atrial fibrillation with rapid ventricular response: (2) Cardiac arrest with pulseless electrical activity: (3) COPD exacerbation: PLAN: Plan In the morning. This 72-year-old female came to ED after today's discharge withincreased respiratory distress, tachypnea and hypoxia and then CODE BLUE blue after CTA chest, successfully ROSC and then admitted in ICU. 1. Acute cardiopulmonary arrest after CTA chest concern for possible anaphylactic reaction from IV contrast: Patient is being admitted in ICU. In her allergy list it is mention prednisone causes some mood changes which is known side effect of prednisone/steroid and hives with red dye. ER physician also said patient tongue was swollen and redness of the skin which improved later in the ED. Continue IV Solu-Medrol. Patient is intubated. Had successful ACLS/BLS lasted for 14 minutes with 3 doses of epinephrine. ABG 7.18/68/391 bicarb 28. Bicarb in BMP is 13. Women Designer consulted 2. Acute combined respiratory failure on chronic hypoxic respiratory failure due to acute exacerbation of COPD most likely due to bilateral lower lobes pneumonia organism unspecified, prior to present admission. : Continue bronchodilators DuoNeb every 4 hourly, IV Solu-Medrol, incentive/Pep after extubation, Mucinex. Prior to intubation, chest x-ray initially reviewed shows no acute infiltrate and reported normal. Started on IV ceftriaxone. Continue doxycycline. Patient completed azithromycin course. Patient just had COVID-19 PCR reported normal, respiratory panel normal and urinary antigens normal on 05/29/2023. She had COVID-vaccine and booster. Blood cultures x2 on 05/28 still pending. Patient follows Dr. Nuno in pulmonary clinic. 3. Transient A-fib after ACLS with history of CAD status post PCI ostial diagonal and mid LAD 12/26/2018 : Patient has been in sinus rhythm during previous EKG and EKG done prior to CODE BLUE. It is normal sinus rhythm 92 bpm. After CODE BLUE it was A- fib 138 bpm, QTc 4 8 8 ms. QRS 84 ms. Repeat 2D echo as patient had cardiopulmonary arrest. Patient was successfully cardioverted to sinus rhythm after 300 J by ER physician. Currently in sinus rhythm. Patient was admitted for unstable angina in December 2022 and at that time cardiac cath was done for abnormal stress test. Cardiac cath showed ostial lesion of jailed diagonal branch, patent LAD stent therefore no PCI was done. Continue losartan, metoprolol, isosorbide and Plavix. #3. Chronic Diastolic CHF: 08/11/2021 echocardiogram with normal LV size, moderate concentric LVH, LV systolic function normal, EF 60%, pulmonary artery systolic pressure 40 mmHg, stageI diastolic dysfunction. Patient is on Lasix 20 mg along with potassium supplement continued. Patient not showing clinical features of acute heart failure exacerbation. #5. Diabetes mellitus type II: Continue home dose of Lantus insulin and lispro insulin. Currently NPO. accu checks every 6 hourly with Humalog sliding scale coverage. Start tube feed in the morning if still not extubated. #6. Hypertension: Blood pressure was high in the ED. BP still 156/97. Continue home regimen including metoprolol, losartan, isosorbide. #7. Hyperlipidemia: Continue home statin regimen. Fasting profile in December 2022 within normal limit LDL 44, HDL 55. Continue high intensity atorvastatin. #8. Chronic normocytic anemia: Admission hemoglobin 10.9 g. On baseline. Platelet count normal. #9. Anxiety and depression: Hold risperidone, citalopram, alprazolam home regimen as patient is sedated on propofol and fentanyl drip #10. Morbid Obesity: Weight loss and lifestyle changes encouraged. #11. Other comorbidities include obstructive sleep apnea, former smoker: DVT prophylaxis: Lovenox 40 mg subcu daily. Living will/advanced directive/end of life care: Patient does not have living will or advanced directive. Her [id number] and son who lives in [place] is next to kin. She does not have designated power of senior trial attorney for health. After discussion of benefits/risks procedures involved with full code, DNR CC arrest and DNR CC, the patient opted for full code. Patient does want artificial life support including intubation, tube feed, ventilator and/chest compression, central venous catheter, vasopressor and DC shock if needed Total time spent in [id number] encounter in discussion of advanced directive 17 minutes. This is from admission about 1-day ago Laboratory Results 05/30/23 20:30: WBC 12.4 H, RBC 3.78 L, Hgb 10.9 L, Hct 34.8 L, MCV 92.1, MCH 28.8, MCHC 31.3 L, RDW Std Deviation 41.3, RDW Coeff of Malcom 12.4, Plt Count 368,MPV 10.6, Immature Gran % (Auto) 1.100 H, Neut % (Auto) 76.7 H, Lymph % (Auto) 14.6 L, Cooke % (Auto) 5.4, Eos % (Auto) 1.4, Baso % (Auto) 0.8, Absolute Neuts (auto) 9.5 H, Absolute Lymphs (auto) 1.80, Nucleated RBC % 0, D-Dimer Quant (PE/DVT) 0.72 H*, Sodium 139, Potassium 3.5, Chloride 102, Carbon Dioxide 30.0, Anion Gap 7, BUN 15, Creatinine 0.84, Estim Creat Clear Calc 48.58, Est GFR (MDRD) Af Amer 86, Est GFR (MDRD) Non-Af 71, BUN/Creatinine Ratio 17.9, Glucose 201 H, Calcium 9.5,Troponin I High Sens 20 05/30/23 23:03: Specimen Type ART, Sample Site L Radial, pH 7.18 L*, BicarbonateActual 25.5, Total CO2 28, Base Excess -3 L, O2 Saturation 100 H, O2 % 100.0, ABG pCO2 67.9 H*, ABG pO2 391 H*, Dima Test N/A, Respiration Rate 14, O2 Delivery Device Adult Vent, Vent Mode AC, Tidal Volume 450.0, POC PEEP 5, Crit Call To/Read Back Yes, Blood Gas Notified Whom Dr Holland Blood Gas Notified Time 23:05:17 Clinical Impression(s) from Imaging Studies Chest X-Ray 05/30/23 21:05 IMPRESSION: Normal x-ray examination of the chest. Charges/Coding Visit Charges Inpatient E&M: 76109 Init Hosp L3 Procedures Hospitalists Procedures: 22647 Advncd Care Plan 30 Min 05/31/23 0045 <Electronically signed by Nico Sweet MD> Cosigner Signature (if applicable): CC: Dr. Billy Madera MD; Dr. Nico Sweet MD~ Signed [facility] Work Phone: [phone] 287-405810-23-2023 Discharge summary Author Jacky Holland [facility] May 30, 2023 11:50pm Note Date/Time May 30, 2023 8 :52pm [facility] Medical Records Department [address] [place] [address] Emergency Department Summary 05/30/23 MR#: [id number] Acct: [id number] Name: JEANNA VARGAS Rep #:[id number] : 1950 72 From: Jacky Holland MD PCP: Dr. Billy Madera MD Status:A DM IN Location: ICU ICU01-1 HPI History of Present Illness Chief Complaint: Shortness of Breath Informant: patient Onset/Context/Timing Onset: Today Context: gradual Timing: Continuous Quality: Positive for Dyspnea on exertion and Wheezing Current Severity: Moderate Maximum Severity: Moderate Worsened by: Exertion, Lying flat and Coughing Relieved by: Rest and Oxygen Associated Symptoms cough Chest Pain: Positive for None Narrative Narrative: 72-year-old female history of COPD on home O2, noncemented diabetes, CHF, CAD with stents. No prior history of DVT or PE. Was hospitalized Wednesday for pneumonia. Was discharged today. States she has been unable to get her medications filled and also does not believe her home nebulizer is working. Today in spite of being on 4 L of oxygen her sats dropped into the 80s and she felt very short of breath. She was transported in by squad. Also states that she has developed hemoptysis. Denies chest pain. Denies fever. No history of DVT or PE in the past. PE Risk Factors: Positive for Recent immobilization; Negative for Cancer, OCP + Smoking + > 35, Prior DVT or PE, Recent surgery or Recent travel Prior similar symptoms: Yes Recent Illness/Hospitalization: Yes PFSH PFSH Medical History Anemia Anxiety and depression Asthma with COPD Atherosclerotic heart disease of [place] coronary artery without angina pectoris Back pain Chest pain Chronic back pain Chronic respiratory failure COPD (chronic obstructive pulmonary disease) Diastolic CHF Former smoker Hepatitis HLD (hyperlipidemia) Hypertension Morbid obesity Obesity MARK treated with BiPAP Psoriasis Smoking greater than 40 pack years Thyroid nodule Type 2 diabetes mellitus Home Medications Handicap Placard #1 ea 12/12/20 [Rx Last Taken Unknown] bisacodyl 5 mg tablet,delayed release (Dulcolax (bisacodyl)) 5 mg PO QHS PRN constipation 30 days #30 tabs 11/13/21 [Rx Last Taken Unknown] pen needle, diabetic 32 gauge x 32" #50 ea 02/11/22 [Rx Last Taken Unknown] blood sugar diagnostic (True Metrix Glucose Test Strip) #100 ea 09/11/22 [Rx Last Taken Unknown] blood-glucose meter (True Metrix Glucose Meter) #1 ea 09/11/22 [Rx Last Taken Unknown] albuterol sulfate 90 mcg/actuation aerosol inhaler 2 puff inhalation Q6H PRN shortness of breath or wheezing #18 grams 11/06/22 [Rx Last Taken Unknown] ipratropium 0.5 mg-albuterol 3 mg (2.5 mg base)/3 mL nebulization soln 3 ml inhalation Q4H PRN PRN SOB &/OR WHEEZING #180 mL 11/10/22 [Rx Last Taken Unknown] cane #1 ea 11/16/22 [Rx Last Taken Unknown] citalopram 40 mg tablet 40 mg PO QHS depression #90 tabs 11/16/22 [Rx Last Taken Unknown] risperidone 1 mg tablet 1 mg PO QHS anxiety #90 tabs 12/07/22 [Rx Last Taken Unknown] isosorbide mononitrate 60 mg tablet,extended release 24 hr 60 mg PO DAILY BP #90tabs 12/26/22 [Rx Last Taken Unknown] nitroglycerin 0.4 mg sublingual tablet 0.4 mg sublingual Q5-15M PRN Pain #30 tabs 12/26/22 [Rx Last Taken Unknown] flash glucose sensor ([employer] Tanika 2 Sensor kit) #2 ea 01/06/23 [Rx Last Taken Unknown] atorvastatin 80 mg tablet 80 mg PO QHS cholesterol 01/26/23 [History Last Taken Unknown] clopidogrel 75 mg tablet 75 mg PO DAILY blood thinner 01/26/23 [History Last Taken Unknown] furosemide 20 mg tablet (Lasix) 20 mg PO DAILY diuretic 01/26/23 [History Last Taken Unknown] losartan 25 mg tablet 25 mg PO DAILY blood pressure 01/26/23 [History Last Taken Unknown] metoprolol tartrate 25 mg tablet 12.5 mg PO BID blood pressure 01/26/23 [History Last Taken Unknown] flash glucose scanning reader ([employer] Tanika 2 [place]) #1 ea 03/23/23 [Rx Last Taken Unknown] ondansetron HCl 4 mg tablet 4 mg PO Q6H PRN nausea and vomiting #14 tabs 04/16/23 [Rx Last Taken Unknown] sucralfate 1 gram tablet (Carafate) 1 g PO TID PRN acid reflux #20 tabs 04/16/23[Rx Last Taken Unknown] insulin glargine 100 unit/mL (3 mL) subcutaneous pen (Basaglar KwikPen U-100 Insulin) 36 unit (0.36 mL) subcut DAILY diabetic managment #42 mL 05/06/23 [Rx Last Taken Unknown] insulin lispro 100 unit/mL subcutaneous pen (Humalog KwikPen (U-100) Insulin) 20unit (0.2 mL) subcut TID diabetes #72 mL 05/06/23 [Rx Last Taken Unknown] alprazolam 0.25 mg tablet 0.25 mg PO QHS anxiety #30 tabs 05/12/23 [Rx Last Taken Unknown] pantoprazole 40 mg tablet,delayed release 40 mg PO BID stomach #180 tabs 05/20/23 [Rx Last Taken Unknown] potassium chloride 20 mEq tablet,extended release 20 meq PO DAILY #3 tabs 05/25/23 [Rx Last Taken Unknown] doxycycline hyclate 100 mg tablet 100 mg PO BID #10 tabs 05/30/23 [Rx Last Taken Unknown] prednisone 20 mg tablet 40 mg (2 x 20 mg) PO DAILY #10 tabs 05/30/23 [Rx Last Taken Unknown] Allergy/AdvReac Type Severity Reaction Status Date / Time amoxicillin [Amoxicillin] Allergy Intermediate Rash Verified 05/28/23 22:22 hydrocodone Allergy Intermediate SWELLING Verified 05/28/23 22:22 gabapentin [From Neurontin] Allergy Shortness Verified 05/28/23 22:22 of breath levofloxacin [From Levaquin] Allergy Hives Verified 05/28/23 22:22 pseudoephedrine HCl Allergy Shortness Verified 05/28/23 22:22 [From Sudafed] of breath red dye Allergy Hives Verified 05/28/23 22:22 prednisone AdvReac Severe mean mood Verified 05/28/23 22:22 clonazepam [From Klonopin] AdvReac Depression Verified 05/28/23 22:22 codeine AdvReac HEADACHE Verified 05/28/23 22:22 Family History Brother Heart disease Mother Colon cancer Heart disease Surgical History History of cholecystectomy History of left heart catheterization (LHC) (~09/23/20) Stented coronary artery (12/28/18) Social History Smoking Status: Former smoker pack-years: 40 how long ago did patient quit smokin year ago alcohol intake: never substance use type: does not use caffeine: Yes Type: carbonated beverages and tea what type of physical activity do you participate in: none ROS ROS ED ROS Narrative Shortness of breath, cough, wheezing. Review of Systems ROS Unobtainable: Denies due to encephalopathy Constitutional Constitutional ED: Denies chills or fever(s) Eyes Eyes: Denies blurry vision ENT ENT ED: Denies ear pain Cardiovascular Cardiovascular: Denies chest pain or palpitations Respiratory/Chest Respiratory/Chest: Reports cough, dyspnea, dyspnea on exertion and sputum Gastrointestinal Gastrointestinal: Denies abdominal pain Genitourinary Genitourinary ED: Denies dysuria or hematuria Integumentary Denies abscess Neurologic Neurologic: Denies headache(s) Psychiatric Psychiatric: Denies anxiety or depression Endocrine Endocrinology: Denies cold intolerance Hematologic/Lymphatic Hematologic/Lymphatic: Denies easy bleeding or easy bruising Allergic/Immunologic Allergic/Immunologic ED: Denies mouth swelling, tongue swelling or urticaria EXAM Physical Exam Narrative Exam Narrative: 72-year-old female vital signs are stable. She is on oxygen on 4 L here she is 96%. H EENT exam unremarkable. Neck nontender no JVD. Lungs expiratory wheezing throughout. Equal symmetrical. Heart tachycardic rate of 107 no murmur. Chest wall nontender. Abdomen soft nontender. Moving all 4 extremities. Calves are nontender without edema or cords. Neurologically she is awake and alert with no focal motor deficits. She is anxious. Const Vital Signs: 05/30/23 20:20 05/30/23 20:29 05/30/23 20:57 Temperature 97.6 F L Temperature Source Oral Pulse Rate 107 H 96 Pulse Rate [1] Pulse Rate [6] Pulse Rate [7] Respiratory Rate 29 H 20 H Respiratory Rate [7] Respiratory Effort Short of Breath Labored Respiratory Depth Shallow Respiratory Pattern Tachypnea Tachypnea Blood Pressure 193/91 H Blood Pressure [7] Blood Pressure Mean 125 Blood Pressure Position Blood Pressure Location Pulse Ox 96 Oxygen Delivery Method Nasal Cannula Nasal Cannula Oxygen Flow Rate (L/min) 4 4 Fraction of Inspired Oxygen (FIO2) 05/30/23 20:44 05/30/23 22:26 05/30/23 22:28 Temperature Temperature Source Pulse Rate 144 H Pulse Rate [1] 24 L Pulse Rate [6] 188 H Pulse Rate [7] 144 H Respiratory Rate 16 Respiratory Rate [7] 22 H Respiratory Effort Respiratory Depth Respiratory Pattern Blood Pressure Blood Pressure [7] 149/97 H Blood Pressure Mean Blood Pressure Position Blood Pressure Location Pulse Ox 96 92 Oxygen Delivery Method Nasal Cannula Nasal Cannula Ambu-Bag Oxygen Flow Rate (L/min) 4 4 Fraction of Inspired Oxygen (FIO2) 05/30/23 22:48 05/30/23 22:11 05/30/23 22:55 Temperature Temperature Source Pulse Rate 150 H 127 H 137 H Pulse Rate [1] Pulse Rate [6] Pulse Rate [7] Respiratory Rate 18 Respiratory Rate [7] Respiratory Effort Respiratory Depth Respiratory Pattern Normal Blood Pressure 112/101 H Blood Pressure [7] Blood Pressure Mean 104 Blood Pressure Position Supine Blood Pressure Location Left Arm Pulse Ox 100 100 Oxygen Delivery Method Oxygen Flow Rate (L/min) Fraction of Inspired Oxygen (FIO2) 100 90 Positive well nourished, well developed and obese; Negative for cachectic, contractures or unkempt General Appearance ED: well developed and NAD; Negative for unkempt, cachectic, contractures or pallor Nutritional Appearance: obese; Negative for cachectic HEENT Reports moist mucous membranes; Denies dry mucous membranes atraumatic; Negative for trauma or tenderness Mouth ED: No dry mucous membranes Mouth: No dry mucous membranes Eyes PERRL and EOMs intact bilaterally General Eye ED: Negative for pale conjunctiva or scleral icterus Neck no lymphadenopathy, supple, no meningeal signs and no JVD General: Negative for tenderness Lymph Lymphatic: Negative for other Chest Wall Chest: Negative for other Resp No normal respiratory effort and No clear to auscultation bilaterally Auscultation: wheezes Cardio regular rhythm, S1 normal heart sound, S2 normal heart sound and no murmurs; Negative for regular rate Rate: tachycardic GI non-tender, non-distended and no masses Auscultation: normoactive bowel sounds Palpation: soft; Negative for tender Bladder / Kidney Exam: No other Back/Spine no CVA tenderness and normal to inspection General Back: Negative for CVA tenderness Extremity normal to inspection General Extremety ED: Negative for edema or tenderness General Extremity: Negative for edema Neuro oriented x3 and CN's II-XII intact bilaterally Sensorium / Orientation: alert, oriented to person, oriented to place and oriented to time; Negative for orientation impaired, confused or lethargic Speech: speech normal Motor Exam: strength 5/5 throughout Psych mental status grossly normal Appearance: Negative for unkempt Attitude: No agitated Mood & Affect: anxious; Negative for depressed or tearful Thought Process: normal thought process Skin no wounds and skin turgor normal General Skin Exam: Negative for jaundice or pallor Lesions: no lesions Rashes: no rashes Trauma: Negative for abrasion or laceration MDM MDM MDM Narrative Medical decision making narrative: 72-year-old female with COPD recently hospitalized and discharged today for pneumonia. Unable to get her meds filled. Nebulizer may not be working at home. And hypoxia at home. She definitely has expiratory wheezing at this time. She also had hemoptysis she is never had a history of DVT or PE she is on no blood thinners and I am aware of. She had recent hospitalization. She undergo cardiac/respiratory work-up along with a D-dimer. She will be treated with Solu-Medrol IV DuoNeb and albuterol aerosols and reassess. Patient is D-dimer was elevated. Above her age and normal limit. She was sent down for a CTA of the chest which she has had before. During the CTA she became more short of breath. They completed the study her sats were in the 90s. She progressively worsened as they were bringing her back to the emergency department. When she arrived emergency department she was having respiratory distress. Patient was read on her chest and face. Then stopped breathing. We started bagging her and there is no palpable carotid or femoral pulse. CPR was begun. On the monitor she had pulses like her activity and was treated with epinephrine a total of 3 times. CPR was continued. I intubated the patient on the first attempt using a 7 and half ET tube. Good breath sounds were heard bilaterally. As was good color change in her sat progressively improved to 95 and then 100%. Using the ultrasound we saw good cardiac activity and femoral pulse CPR was ceased. She is now on the ventilator. Removed her to room 1. She has been given Benadryl in case of allergic reaction but she is already been given epinephrine 3 times due to her cardiopulmonary arrest and PEA. She was also given Solu-Medrol due to her COPD 1 to 2 hours prior to her CTA. She is currently on a propofol drip. OG has been placed. [place] has been placed. This may have been an anaphylactic reaction but it she has no history of contrast dye. Prior to the CAT scan she was pretreated with Solu-Medrol for her COPD at least an hour prior to the CAT scan. She is also recently been on steroids. Repeat exam patient is significantly improved on the ventilator. Her vital signs are stabilizing she is tachycardic from the epinephrine. Blood pressure is also elevated due to the epinephrine. The swelling of her tongue and the redness of her skin have both significantly improved. History & Record Review Discussion w/independent historian: EMS personnel and Patient Additional record(s) reviewed:: Prior inpatient record, Prior outpatient record, Prior ED visit and Prior labs Lab Data Attestation: I reviewed the patient's lab results. Lab results narrative: CBC shows white count 12.4. H&H 10.9 and 34.8. Platelets 368. Electrolytes show gap of 7. Normal BUN of 15 creatinine 0.8. Glucose 201. Troponin is normal at 20. D-dimer is just elevated 0.72. CTA ordered. Chest x-ray shows chronic changes. When compared to prior labs these labs the patient's baseline. No significant acute changes. ABG: Post intubation and was only on the ventilator about 5 minutes prior to the ABG being obtained. Patient's pH was 7.18, PCO2 67 and PO2 of 390. Her sat is 99%. Labs: Laboratory Results - last 24 hr 05/30/23 20:30 WBC 12.4 H RBC 3.78 L Hgb 10.9 L Hct 34.8 L MCV 92.1 MCH 28.8 MCHC 31.3 L RDW Std Deviation 41.3 RDW Coeff of Malcom 12.4 Plt Count 368 MPV 10.6 Immature Gran % (Auto) 1.100 H Neut % (Auto) 76.7 H Lymph % (Auto) 14.6 L Cooke % (Auto) 5.4 Eos % (Auto) 1.4 Baso % (Auto) 0.8 Absolute Neuts (auto) 9.5 H Absolute Lymphs (auto) 1.80 Nucleated RBC % 0 D-Dimer Quant (PE/DVT) 0.72 H* Sodium 139 Potassium 3.5 Chloride 102 Carbon Dioxide 30.0 Anion Gap 7 BUN 15 Creatinine 0.84 Estim Creat Clear Calc 48.58 Est GFR (MDRD) Af Amer 86 Est GFR (MDRD) Non-Af 71 BUN/Creatinine Ratio 17.9 Glucose 201 H Calcium 9.5 Troponin I High Sens 20 ABG Data ABG results: ABG 05/30/23 23:03 Specimen Type ART Sample Site L Radial pH 7.18 L* Bicarbonate Actual 25.5 Total CO2 28 Base Excess -3 L O2 Saturation 100 H O2 % 100.0 ABG pCO2 67.9 H* ABG pO2 391 H* Dima Test N/A Respiration Rate 14 O2 Delivery Device Adult Vent Vent Mode AC Tidal Volume 450.0 POC PEEP 5 Crit Call To/Read Back Yes Blood Gas Notified Whom Dr Holland Blood Gas Notified Time 23:05:17 Radiography Chest X-Ray - ED: 1 View, Read by ED Physician, Read by Radiologist, Heart, Lungs, Mediastinum, Bony Structures, No Acute Disease and Chronic Changes Diagnostic Testing: Clinical Impression(s) from Imaging Studies Chest X-Ray 05/30/23 21:05 IMPRESSION: Normal x-ray examination of the chest. Electronically Signed: Max Braxton MD at 21:21 EDT , Chest x-ray, portable, single view shows normal cardiac silhouette mediastinum. Chronic changes. Cannot rule out a right lower lobe infiltrate but that is been seen on prior. No significant change from recent chest x-rays. Interpreted both by myself and the radiologist. Patient had respiratory failure. So a second chest x-ray was obtained postintubation. Chest x-ray #2: Portable, single view, interpreted by myself. Shows appropriate placement of the ET tube above the susi. Bilateral well ventilated lung mera. OG in place in the stomach. Rhythm Strip Rhythm Strip: Sinus Rhythm Rate: 92 Ectopy: None EKG Initial EKG: Attestation: I personally reviewed and interpreted this EKG as follows: Interpretation: Sinus Rhythm and No Acute Injury Pattern Comments: Normal sinus rhythm rate of 92 no acute change from recent EKG from March 28. Prior EKG tracings: available for review Prior: Unchanged Follow-up EKG: Attestation: I personally reviewed and interpreted this EKG as follows: Interpretation: Atrial Fibrillation Comments: After the patient had cardiopulmonary arrest and was treated with epinephrine. She was intubated. A second EKG was obtained once she regained pulses. And the patient was much more stable on the ventilator. Second EKG shows A-fib RVR rate of 138. There is rate dependent ST depression in leads V3, V4, V5 and V6. No ST elevation. Prior: Changed Procedures Intubations Intubation Method: orotracheal Intubation Verification: Positive color change Intubation Complications: no complications (Respiratory failure. ET intubation. Pretreated with succinylcholine and etomidate. Intubated on the first attempt. Good bilateral breath sounds. Good color change. Pulse ox quickly improved to the mid 90s after intubation. Bilateral breath sounds were heard.) Other Procedures Procedure(s): CPR during cardiopulmonary arrest. Post cardiopulmonary arrest. Patient was in A-fib RVR. Heart rate was 137 ~160. Her pressure was in the 90s. Due to her hypotension and knowing that she just converted to A-fib RVR I felt it was best to cardiovert her. Patient was already on a propofol drip and sedated. Pacer pads were placed. She was shocked 1 time at 300 J. Cardioverted to a sinus rhythm immediately. Critical Care Time Critical Care Time: Yes Critical care time (excluding procedures): 30-74 minutes, Including time spent:, Discussing w/Patient &/or Family/Media Center Assistant, Discussing w/Consultants, Arranging Admission or Transfer, Performing Direct Patient Care at Bedside and - (45 min) Discharge Plan Triage Chief Complaint: Shortness of Breath ED Provider: Jacky Holland Dx/Rx/DC Orders Clinical Impression: Respiratory failure, COPD exacerbation, Anaphylaxis, History of diabetes mellitus, History of CAD (coronary artery disease), Endotracheally intubated, Cardiac arrest with pulseless electrical activity, Atrial fibrillation with rapid ventricular response Primary Care Provider: Billy Madera Disposition Disposition: Acute Care [facility] What to do if you have Problems For any increased pain, shortness of breath, bleeding, nausea or vomiting, chest pain, or any unexpected problems, contact your Primary Care Provider. Call [facility] ([phone]) or report to the closest Emergency Room. Call 911 if necessary. 05/30/23 6138 <Electronically signed by Jacky Holland MD> Cosigner Signature (if applicable): CC: Dr. Billy Madera MD ~ Signed ADDENDUM by Dr. Jacky Holland MD on 05/30/23 at 2350 EKG post cardioversion is a sinus rhythm rate of 96 with no significant signs of IN nor ischemia. Both myself and nursing have attempted to contact family and we have been unsuccessful. The number in the computer system has a recording that is no longer in existence. Nurses have also found a cell number but when they called that it said the mailbox was full. I also called her home and there was no answer. So at this time we have been unable to reach the family. 05/30/23 2350<Electronically signed by Jacky Holland MD> Cosigner Signature (if applicable): cc: Dr. Billy Madera MD ~* Signed [facility] Work Phone: 1(453) 427-802810-22-2023 Discharge summary Author Jacky Holland [facility] May 30, 2023 11:50pm Note Date/Time May 30, 2023 8 :52pm [facility] Medical Records Department [address] [place] [address] Emergency Department Summary 05/30/23 MR#: [id number] Acct: [id number] Name: JEANNA VARGAS Rep #:[id number] : 1950 72 From: Jacky Holland MD PCP: Dr. Billy Madera MD Status:A DM IN Location: ICU ICU01-1 HPI History of Present Illness Chief Complaint: Shortness of Breath Informant: patient Onset/Context/Timing Onset: Today Context: gradual Timing: Continuous Quality: Positive for Dyspnea on exertion and Wheezing Current Severity: Moderate Maximum Severity: Moderate Worsened by: Exertion, Lying flat and Coughing Relieved by: Rest and Oxygen Associated Symptoms cough Chest Pain: Positive for None Narrative Narrative: 72-year-old female history of COPD on home O2, noncemented diabetes, CHF, CAD with stents. No prior history of DVT or PE. Was hospitalized Wednesday for pneumonia. Was discharged today. States she has been unable to get her medications filled and also does not believe her home nebulizer is working. Today in spite of being on 4 L of oxygen her sats dropped into the 80s and she felt very short of breath. She was transported in by squad. Also states that she has developed hemoptysis. Denies chest pain. Denies fever. No history of DVT or PE in the past. PE Risk Factors: Positive for Recent immobilization; Negative for Cancer, OCP + Smoking + > 35, Prior DVT or PE, Recent surgery or Recent travel Prior similar symptoms: Yes Recent Illness/Hospitalization: Yes PFSH PFSH Medical History Anemia Anxiety and depression Asthma with COPD Atherosclerotic heart disease of [place] coronary artery without angina pectoris Back pain Chest pain Chronic back pain Chronic respiratory failure COPD (chronic obstructive pulmonary disease) Diastolic CHF Former smoker Hepatitis HLD (hyperlipidemia) Hypertension Morbid obesity Obesity MARK treated with BiPAP Psoriasis Smoking greater than 40 pack years Thyroid nodule Type 2 diabetes mellitus Home Medications Handicap Placard #1 ea 12/12/20 [Rx Last Taken Unknown] bisacodyl 5 mg tablet,delayed release (Dulcolax (bisacodyl)) 5 mg PO QHS PRN constipation 30 days #30 tabs 11/13/21 [Rx Last Taken Unknown] pen needle, diabetic 32 gauge x 5/32" #50 ea 02/11/22 [Rx Last Taken Unknown] blood sugar diagnostic (True Metrix Glucose Test Strip) #100 ea 09/11/22 [Rx Last Taken Unknown] blood-glucose meter (True Metrix Glucose Meter) #1 ea 09/11/22 [Rx Last Taken Unknown] albuterol sulfate 90 mcg/actuation aerosol inhaler 2 puff inhalation Q6H PRN shortness of breath or wheezing #18 grams 11/06/22 [Rx Last Taken Unknown] ipratropium 0.5 mg-albuterol 3 mg (2.5 mg base)/3 mL nebulization soln 3 ml inhalation Q4H PRN PRN SOB &/OR WHEEZING #180 mL 11/10/22 [Rx Last Taken Unknown] cane #1 ea 11/16/22 [Rx Last Taken Unknown] citalopram 40 mg tablet 40 mg PO QHS depression #90 tabs 11/16/22 [Rx Last Taken Unknown] risperidone 1 mg tablet 1 mg PO QHS anxiety #90 tabs 12/07/22 [Rx Last Taken Unknown] isosorbide mononitrate 60 mg tablet,extended release 24 hr 60 mg PO DAILY BP #90tabs 12/26/22 [Rx Last Taken Unknown] nitroglycerin 0.4 mg sublingual tablet 0.4 mg sublingual Q5-15M PRN Pain #30 tabs 12/26/22 [Rx Last Taken Unknown] flash glucose sensor (FreeStyle Tanika 2 Sensor kit) #2 ea 01/06/23 [Rx Last Taken Unknown] atorvastatin 80 mg tablet 80 mg PO QHS cholesterol 01/26/23 [History Last Taken Unknown] clopidogrel 75 mg tablet 75 mg PO DAILY blood thinner 01/26/23 [History Last Taken Unknown] furosemide 20 mg tablet (Lasix) 20 mg PO DAILY diuretic 01/26/23 [History Last Taken Unknown] losartan 25 mg tablet 25 mg PO DAILY blood pressure 01/26/23 [History Last Taken Unknown] metoprolol tartrate 25 mg tablet 12.5 mg PO BID blood pressure 01/26/23 [History Last Taken Unknown] flash glucose scanning reader ([employer] Tanika 2 [place]) #1 ea 03/23/23 [Rx Last Taken Unknown] ondansetron HCl 4 mg tablet 4 mg PO Q6H PRN nausea and vomiting #14 tabs 04/16/23 [Rx Last Taken Unknown] sucralfate 1 gram tablet (Carafate) 1 g PO TID PRN acid reflux #20 tabs 04/16/23[Rx Last Taken Unknown] insulin glargine 100 unit/mL (3 mL) subcutaneous pen (Basaglar KwikPen U-100 Insulin) 36 unit (0.36 mL) subcut DAILY diabetic managment #42 mL 05/06/23 [Rx Last Taken Unknown] insulin lispro 100 unit/mL subcutaneous pen (Humalog KwikPen (U-100) Insulin) 20unit (0.2 mL) subcut TID diabetes #72 mL 05/06/23 [Rx Last Taken Unknown] alprazolam 0.25 mg tablet 0.25 mg PO QHS anxiety #30 tabs 05/12/23 [Rx Last Taken Unknown] pantoprazole 40 mg tablet,delayed release 40 mg PO BID stomach #180 tabs 05/20/23 [Rx Last Taken Unknown] potassium chloride 20 mEq tablet,extended release 20 meq PO DAILY #3 tabs 05/25/23 [Rx Last Taken Unknown] doxycycline hyclate 100 mg tablet 100 mg PO BID #10 tabs 05/30/23 [Rx Last Taken Unknown] prednisone 20 mg tablet 40 mg (2 x 20 mg) PO DAILY #10 tabs 05/30/23 [Rx Last Taken Unknown] Allergy/AdvReac Type Severity Reaction Status Date / Time amoxicillin [Amoxicillin] Allergy Intermediate Rash Verified 05/28/23 22:22 hydrocodone Allergy Intermediate SWELLING Verified 05/28/23 22:22 gabapentin [From Neurontin] Allergy Shortness Verified 05/28/23 22:22 of breath levofloxacin [From Levaquin] Allergy Hives Verified 05/28/23 22:22 pseudoephedrine HCl Allergy Shortness Verified 05/28/23 22:22 [From Sudafed] of breath red dye Allergy Hives Verified 05/28/23 22:22 prednisone AdvReac Severe mean mood Verified 05/28/23 22:22 clonazepam [From Klonopin] AdvReac Depression Verified 05/28/23 22:22 codeine AdvReac HEADACHE Verified 05/28/23 22:22 Family History Brother Heart disease Mother Colon cancer Heart disease Surgical History History of cholecystectomy History of left heart catheterization (LHC) (~09/23/20) Stented coronary artery (12/28/18) Social History Smoking Status: Former smoker pack-years: 40 how long ago did patient quit smokin year ago alcohol intake: never substance use type: does not use caffeine: Yes Type: carbonated beverages and tea what type of physical activity do you participate in: none ROS ROS ED ROS Narrative Shortness of breath, cough, wheezing. Review of Systems ROS Unobtainable: Denies due to encephalopathy Constitutional Constitutional ED: Denies chills or fever(s) Eyes Eyes: Denies blurry vision ENT ENT ED: Denies ear pain Cardiovascular Cardiovascular: Denies chest pain or palpitations Respiratory/Chest Respiratory/Chest: Reports cough, dyspnea, dyspnea on exertion and sputum Gastrointestinal Gastrointestinal: Denies abdominal pain Genitourinary Genitourinary ED: Denies dysuria or hematuria Integumentary Denies abscess Neurologic Neurologic: Denies headache(s) Psychiatric Psychiatric: Denies anxiety or depression Endocrine Endocrinology: Denies cold intolerance Hematologic/Lymphatic Hematologic/Lymphatic: Denies easy bleeding or easy bruising Allergic/Immunologic Allergic/Immunologic ED: Denies mouth swelling, tongue swelling or urticaria EXAM Physical Exam Narrative Exam Narrative: 72-year-old female vital signs are stable. She is on oxygen on 4 L here she is 96%. H EENT exam unremarkable. Neck nontender no JVD. Lungs expiratory wheezing throughout. Equal symmetrical. Heart tachycardic rate of 107 no murmur. Chest wall nontender. Abdomen soft nontender. Moving all 4 extremities. Calves are nontender without edema or cords. Neurologically she is awake and alert with no focal motor deficits. She is anxious. Const Vital Signs: 05/30/23 20:20 05/30/23 20:29 05/30/23 20:57 Temperature 97.6 F L Temperature Source Oral Pulse Rate 107 H 96 Pulse Rate [1] Pulse Rate [6] Pulse Rate [7] Respiratory Rate 29 H 20 H Respiratory Rate [7] Respiratory Effort Short of Breath Labored Respiratory Depth Shallow Respiratory Pattern Tachypnea Tachypnea Blood Pressure 193/91 H Blood Pressure [7] Blood Pressure Mean 125 Blood Pressure Position Blood Pressure Location Pulse Ox 96 Oxygen Delivery Method Nasal Cannula Nasal Cannula Oxygen Flow Rate (L/min) 4 4 Fraction of Inspired Oxygen (FIO2) 05/30/23 20:44 05/30/23 22:26 05/30/23 22:28 Temperature Temperature Source Pulse Rate 144 H Pulse Rate [1] 24 L Pulse Rate [6] 188 H Pulse Rate [7] 144 H Respiratory Rate 16 Respiratory Rate [7] 22 H Respiratory Effort Respiratory Depth Respiratory Pattern Blood Pressure Blood Pressure [7] 149/97 H Blood Pressure Mean Blood Pressure Position Blood Pressure Location Pulse Ox 96 92 Oxygen Delivery Method Nasal Cannula Nasal Cannula Ambu-Bag Oxygen Flow Rate (L/min) 4 4 Fraction of Inspired Oxygen (FIO2) 05/30/23 22:48 05/30/23 22:11 05/30/23 22:55 Temperature Temperature Source Pulse Rate 150 H 127 H 137 H Pulse Rate [1] Pulse Rate [6] Pulse Rate [7] Respiratory Rate 18 Respiratory Rate [7] Respiratory Effort Respiratory Depth Respiratory Pattern Normal Blood Pressure 112/101 H Blood Pressure [7] Blood Pressure Mean 104 Blood Pressure Position Supine Blood Pressure Location Left Arm Pulse Ox 100 100 Oxygen Delivery Method Oxygen Flow Rate (L/min) Fraction of Inspired Oxygen (FIO2) 100 90 Positive well nourished, well developed and obese; Negative for cachectic, contractures or unkempt General Appearance ED: well developed and NAD; Negative for unkempt, cachectic, contractures or pallor Nutritional Appearance: obese; Negative for cachectic HEENT Reports moist mucous membranes; Denies dry mucous membranes atraumatic; Negative for trauma or tenderness Mouth ED: No dry mucous membranes Mouth: No dry mucous membranes Eyes PERRL and EOMs intact bilaterally General Eye ED: Negative for pale conjunctiva or scleral icterus Neck no lymphadenopathy, supple, no meningeal signs and no JVD General: Negative for tenderness Lymph Lymphatic: Negative for other Chest Wall Chest: Negative for other Resp No normal respiratory effort and No clear to auscultation bilaterally Auscultation: wheezes Cardio regular rhythm, S1 normal heart sound, S2 normal heart sound and no murmurs; Negative for regular rate Rate: tachycardic GI non-tender, non-distended and no masses Auscultation: normoactive bowel sounds Palpation: soft; Negative for tender Bladder / Kidney Exam: No other Back/Spine no CVA tenderness and normal to inspection General Back: Negative for CVA tenderness Extremity normal to inspection General Extremety ED: Negative for edema or tenderness General Extremity: Negative for edema Neuro oriented x3 and CN's II-XII intact bilaterally Sensorium / Orientation: alert, oriented to person, oriented to place and oriented to time; Negative for orientation impaired, confused or lethargic Speech: speech normal Motor Exam: strength 5/5 throughout Psych mental status grossly normal Appearance: Negative for unkempt Attitude: No agitated Mood & Affect: anxious; Negative for depressed or tearful Thought Process: normal thought process Skin no wounds and skin turgor normal General Skin Exam: Negative for jaundice or pallor Lesions: no lesions Rashes: no rashes Trauma: Negative for abrasion or laceration MDM MDM MDM Narrative Medical decision making narrative: 72-year-old female with COPD recently hospitalized and discharged today for pneumonia. Unable to get her meds filled. Nebulizer may not be working at home. And hypoxia at home. She definitely has expiratory wheezing at this time. She also had hemoptysis she is never had a history of DVT or PE she is on no blood thinners and I am aware of. She had recent hospitalization. She undergo cardiac/respiratory work-up along with a D-dimer. She will be treated with Solu-Medrol IV DuoNeb and albuterol aerosols and reassess. Patient is D-dimer was elevated. Above her age and normal limit. She was sent down for a CTA of the chest which she has had before. During the CTA she became more short of breath. They completed the study her sats were in the 90s. She progressively worsened as they were bringing her back to the emergency department. When she arrived emergency department she was having respiratory distress. Patient was read on her chest and face. Then stopped breathing. We started bagging her and there is no palpable carotid or femoral pulse. CPR was begun. On the monitor she had pulses like her activity and was treated with epinephrine a total of 3 times. CPR was continued. I intubated the patient on the first attempt using a 7 and half ET tube. Good breath sounds were heard bilaterally. As was good color change in her sat progressively improved to 95 and then 100%. Using the ultrasound we saw good cardiac activity and femoral pulse CPR was ceased. She is now on the ventilator. Removed her to room 1. She has been given Benadryl in case of allergic reaction but she is already been given epinephrine 3 times due to her cardiopulmonary arrest and PEA. She was also given Solu-Medrol due to her COPD 1 to 2 hours prior to her CTA. She is currently on a propofol drip. OG has been placed. [place] has been placed. This may have been an anaphylactic reaction but it she has no history of contrast dye. Prior to the CAT scan she was pretreated with Solu-Medrol for her COPD at least an hour prior to the CAT scan. She is also recently been on steroids. Repeat exam patient is significantly improved on the ventilator. Her vital signs are stabilizing she is tachycardic from the epinephrine. Blood pressure is also elevated due to the epinephrine. The swelling of her tongue and the redness of her skin have both significantly improved. History & Record Review Discussion w/independent historian: EMS personnel and Patient Additional record(s) reviewed:: Prior inpatient record, Prior outpatient record, Prior ED visit and Prior labs Lab Data Attestation: I reviewed the patient's lab results. Lab results narrative: CBC shows white count 12.4. H&H 10.9 and 34.8. Platelets 368. Electrolytes show gap of 7. Normal BUN of 15 creatinine 0.8. Glucose 201. Troponin is normal at 20. D-dimer is just elevated 0.72. CTA ordered. Chest x-ray shows chronic changes. When compared to prior labs these labs the patient's baseline. No significant acute changes. ABG: Post intubation and was only on the ventilator about 5 minutes prior to the ABG being obtained. Patient's pH was 7.18, PCO2 67 and PO2 of 390. Her sat is 99%. Labs: Laboratory Results - last 24 hr 05/30/23 20:30 WBC 12.4 H RBC 3.78 L Hgb 10.9 L Hct 34.8 L MCV 92.1 MCH 28.8 MCHC 31.3 L RDW Std Deviation 41.3 RDW Coeff of Malcom 12.4 Plt Count 368 MPV 10.6 Immature Gran % (Auto) 1.100 H Neut % (Auto) 76.7 H Lymph % (Auto) 14.6 L Cooke % (Auto) 5.4 Eos % (Auto) 1.4 Baso % (Auto) 0.8 Absolute Neuts (auto) 9.5 H Absolute Lymphs (auto) 1.80 Nucleated RBC % 0 D-Dimer Quant (PE/DVT) 0.72 H* Sodium 139 Potassium 3.5 Chloride 102 Carbon Dioxide 30.0 Anion Gap 7 BUN 15 Creatinine 0.84 Estim Creat Clear Calc 48.58 Est GFR (MDRD) Af Amer 86 Est GFR (MDRD) Non-Af 71 BUN/Creatinine Ratio 17.9 Glucose 201 H Calcium 9.5 Troponin I High Sens 20 ABG Data ABG results: ABG 05/30/23 23:03 Specimen Type ART Sample Site L Radial pH 7.18 L* Bicarbonate Actual 25.5 Total CO2 28 Base Excess -3 L O2 Saturation 100 H O2 % 100.0 ABG pCO2 67.9 H* ABG pO2 391 H* Dima Test N/A Respiration Rate 14 O2 Delivery Device Adult Vent Vent Mode AC Tidal Volume 450.0 POC PEEP 5 Crit Call To/Read Back Yes Blood Gas Notified Whom Dr Holland Blood Gas Notified Time 23:05:17 Radiography Chest X-Ray - ED: 1 View, Read by ED Physician, Read by Radiologist, Heart, Lungs, Mediastinum, Bony Structures, No Acute Disease and Chronic Changes Diagnostic Testing: Clinical Impression(s) from Imaging Studies Chest X-Ray 05/30/23 21:05 IMPRESSION: Normal x-ray examination of the chest. Electronically Signed: Max Braxton MD at 21:21 EDT , Chest x-ray, portable, single view shows normal cardiac silhouette mediastinum. Chronic changes. Cannot rule out a right lower lobe infiltrate but that is been seen on prior. No significant change from recent chest x-rays. Interpreted both by myself and the radiologist. Patient had respiratory failure. So a second chest x-ray was obtained postintubation. Chest x-ray #2: Portable, single view, interpreted by myself. Shows appropriate placement of the ET tube above the susi. Bilateral well ventilated lung mera. OG in place in the stomach. Rhythm Strip Rhythm Strip: Sinus Rhythm Rate: 92 Ectopy: None EKG Initial EKG: Attestation: I personally reviewed and interpreted this EKG as follows: Interpretation: Sinus Rhythm and No Acute Injury Pattern Comments: Normal sinus rhythm rate of 92 no acute change from recent EKG from March 28. Prior EKG tracings: available for review Prior: Unchanged Follow-up EKG: Attestation: I personally reviewed and interpreted this EKG as follows: Interpretation: Atrial Fibrillation Comments: After the patient had cardiopulmonary arrest and was treated with epinephrine. She was intubated. A second EKG was obtained once she regained pulses. And the patient was much more stable on the ventilator. Second EKG shows A-fib RVR rate of 138. There is rate dependent ST depression in leads V3, V4, V5 and V6. No ST elevation. Prior: Changed Procedures Intubations Intubation Method: orotracheal Intubation Verification: Positive color change Intubation Complications: no complications (Respiratory failure. ET intubation. Pretreated with succinylcholine and etomidate. Intubated on the first attempt. Good bilateral breath sounds. Good color change. Pulse ox quickly improved to the mid 90s after intubation. Bilateral breath sounds were heard.) Other Procedures Procedure(s): CPR during cardiopulmonary arrest. Post cardiopulmonary arrest. Patient was in A-fib RVR. Heart rate was 137 ~160. Her pressure was in the 90s. Due to her hypotension and knowing that she just converted to A-fib RVR I felt it was best to cardiovert her. Patient was already on a propofol drip and sedated. Pacer pads were placed. She was shocked 1 time at 300 J. Cardioverted to a sinus rhythm immediately. Critical Care Time Critical Care Time: Yes Critical care time (excluding procedures): 30-74 minutes, Including time spent:, Discussing w/Patient &/or Family/Media Center Assistant, Discussing w/Consultants, Arranging Admission or Transfer, Performing Direct Patient Care at Bedside and - (45 min) Discharge Plan Triage Chief Complaint: Shortness of Breath ED Provider: Jacky Holland Dx/Rx/DC Orders Clinical Impression: Respiratory failure, COPD exacerbation, Anaphylaxis, History of diabetes mellitus, History of CAD (coronary artery disease), Endotracheally intubated, Cardiac arrest with pulseless electrical activity, Atrial fibrillation with rapid ventricular response Primary Care Provider: Billy Madera Disposition Disposition: Acute Care [facility] What to do if you have Problems For any increased pain, shortness of breath, bleeding, nausea or vomiting, chest pain, or any unexpected problems, contact your Primary Care Provider. Call [facility] ([phone]) or report to the closest Emergency Room. Call 911 if necessary. 05/30/23 2337 <Electronically signed by Jacky Holland MD> Cosigner Signature (if applicable): CC: Dr. Billy Madera MD ~ Signed ADDENDUM by Dr. Jacky Holland MD on 05/30/23 at 2350 EKG post cardioversion is a sinus rhythm rate of 96 with no significant signs of IN nor ischemia. Both myself and nursing have attempted to contact family and we have been unsuccessful. The number in the computer system has a recording that is no longer in existence. Nurses have also found a cell number but when they called that it said the mailbox was full. I also called her home and there was no answer. So at this time we have been unable to reach the family. 05/30/23 2350<Electronically signed by Jacky Holland MD> Cosigner Signature (if applicable): cc: Dr. Billy Madera MD ~* Signed [facility] Work Phone: 1(372) 353-243810-21-2023 Progress note Author Kimberly Armstrong [facility] May 29, 2023 3:06pm Note Date/Time May 29, 2023 2 :01pm [facility] Medical Records Department [address] [place] [address] Progress Note 05/29/23 1359 MR#: [id number] Acct: [id number] Name: JEANNA VARGAS Rep #:[id number] : 1950 72 From: Kimberly Armstrong MD PCP: Dr. Billy Madera MD Status:A DM IN Location: ICU ICU02-1 Subjective Subjective Patient seen and examined. She has no active complaints. She feels her breathing is getting better. She is coughing and trying to bring up some sputum. She had an uneventful night otherwise review of systems otherwise negative Objective Data Objective Data Vital Signs: Vital Signs Temp Pulse Resp BP Pulse Ox O2 Del Method O2 Flow Rate 98.8 F 82 20 H 151/52 H 99 Nasal Cannula 4 05/29/23 13:00 05/29/23 13:00 05/29/23 13:00 05/29/23 13:00 05/29/23 13:00 05/29/23 13:00 05/29/23 13:00 FiO2 40 05/29/23 07:10 Oxygen Flow Rate (L/min) 4 Oxygen Delivery Method Nasal Cannula Weight: 217 lb 13.067 oz Body Mass Index (BMI) 39.8 Intake & Output: Intake and Output for Last 24 Hours 05/27/23 05/28/23 05/29/23 23:59 23:59 23:59 Intake Total 1555 / 1555 Balance 1555 / 1555 Lab / Micro Data 05/29/23 02:55 05/29/23 02:55 Labs: Laboratory Results - last 24 hr 05/28/23 22:50: WBC 10.1, RBC 3.66 L, Hgb 10.6 L, Hct 33.8 L, MCV 92.3, MCH 29.0, MCHC 31.4 L, RDW Std Deviation 40.8, RDW Coeff of Malcom 12.0, Plt Count 326,MPV 10.3, Immature Gran % (Auto) 0.800, Neut % (Auto) 77.6 H, Lymph % (Auto) 14.7 L, Cooke % (Auto) 4.7, Eos % (Auto) 1.6, Baso % (Auto) 0.6, Absolute Neuts (auto) 7.9 H, Absolute Lymphs (auto) 1.49, Nucleated RBC % 0, Sodium 136, Potassium 3.7, Chloride 98, Carbon Dioxide 33.0 H, Anion Gap 5, BUN 12, Creatinine0.93, Estim Creat Clear Calc 43.88, Est GFR (MDRD) Af Amer 77, Est GFR (MDRD) Non-Af 63, BUN/Creatinine Ratio 13.0, Glucose 313 H, Lactic Acid 2.3 H*, Calcium8.9, Magnesium 2.1, B- Natriuretic Peptide 87.7 05/29/23 01:43: MRSA (PCR) Negative 05/29/23 02:39: POC Glucose 145 H 05/29/23 02:55: WBC 10.6, RBC 3.49 L, Hgb 10.1 L, Hct 32.5 L, MCV 93.1, MCH 28.9, MCHC 31.1 L, RDW Std Deviation 40.8, RDW Coeff of Malcom 12.0, Plt Count 317,MPV 10.4, Immature Gran % (Auto) 0.700, Neut % (Auto) 87.2 H, Lymph % (Auto) 8.2L, Cooke % (Auto) 2.7, Eos % (Auto) 0.7, Baso % (Auto) 0.5, Absolute Neuts (auto)9.2 H, Absolute Lymphs (auto) 0.86, Nucleated RBC % 0, Sodium 142, Potassium 3.7, Chloride 105, Carbon Dioxide 30.0, Anion Gap 7, BUN 10, Creatinine 0.80, Estim Creat Clear Calc 51.01, Est GFR (MDRD) Af Amer 90, Est GFR (MDRD) Non-Af 75, BUN/Creatinine Ratio 12.4, Glucose 152 H, Calcium 8.6, TSH 2.10 05/29/23 03:07: Lactic Acid 1.7 05/29/23 07:24: POC Glucose 259 H 05/29/23 11:38: POC Glucose 322 H Micro: Microbiology 05/29/23 07:47 Urine, Clean Catch Legionella Antigen - Final 05/29/23 07:47 Urine, Clean Catch Streptococcus pneumoniae Antigen (M - Final 05/29/23 02:10 Mucosa - Nasopharyngeal Respiratory Panel (PCR) - Final 05/29/23 02:10 Mucosa - Nasopharyngeal Coronavirus COVID-19 PCR - Final 05/28/23 23:50 Nasal Secretion SARS-CoV-2 & FLU Antigen (Rapid) - Final Radiography Diagnostic Testing: Radiology Impression Chest X-Ray 05/28/23 23:10 IMPRESSION: Worsening bibasilar atelectasis or pneumonia. Electronically Signed: Max Braxton MD at 23:23 EDT , Physical Exam Const alert, oriented x3 and no apparent distress Constitutional Narrative: obese General Appearance: cooperative HEENT normocephalic, head/scalp atraumatic, moist oral mucous membranes and oropharynxnormal Eyes PERRL and EOMs intact bilaterally Neck no lymphadenopathy, supple and no JVD Lymph Lymphatic: no lymphadenopathy noted and no lymphedema noted Resp Resp Narrative: Diminished breath sounds bibasally. Bilateral crackles and some wheezing. On 4L of oxygen. Cardio regular rate, regular rhythm, S1 normal heart sound, S2 normal heart sound and no murmurs GI normal to inspection, nondistended, normoactive bowel sounds, soft to palpation,non-tender and non-distended Extremity normal capillary refill, no clubbing, cyanosis or edema and no calf tenderness General Extremity: no tenderness to palpation of joints or extremities Skin General Skin Exam: no breakdown Neuro CN's II-XII intact bilaterally, no focal motor deficits, no sensory deficits noted and deep tendon reflexes 2+ bilaterally Motor Exam: strength 5/5 throughout Psych thought process normal and cooperative Appearance: appropriate Assessment & Plan Assessment/Plan (1) Acute exacerbation of chronic obstructive pulmonary disease: (2) Bilateral pneumonia: QUALIFIERS: Pneumonia type: due to unspecified organism Lung location: lower lobe of lung Qualified Code(s): J18.9 - Pneumonia, unspecified organism PLAN: Plan #Acute COPD exacerbation and community acquired pneumonia * On IV ceftriaxone and doxycycline. * Breathing treatments bronchodilators. Titrate oxygen to maintain saturation above 90%. * On IV Solu-Medrol. * Urine. Imaging otherwise negative. Respiratory panel was also negative. * #CAD: S/p stents in 2019. Had abnormal stress test in December 2022 and had cardiac cath done which showed patent LAD stent. On Imdur, Plavix, losartan and metoprolol as well as high intensity statin. #Heart failure preserved ejection fraction: Has known EF of 60%. On p.o. Lasix 20 mg daily. #Type 2 diabetes mellitus: On Lantus. Insulin sliding scale. Accu-Cheks ACHS. #Hypertension: On metoprolol, losartan and Imdur. IV hydralazine prn #Anxiety and depression: On Risperdal, citalopram and alprazolam. #Morbid obesity: BMI is 39.8. Complicates acute care, expected recovery and prognosis. #MARK: On BiPAP. DVT prophylaxis: Lovenox. Charges/Coding Visit Charges Inpatient E&M: 39017 Subs Hosp L3 05/29/23 1506 <Electronically signed by Kimberly Armstrong MD> Kimberly Armstrong MD Cosigner Signature (if applicable): CC: ~ Signed [facility] Work Phone: 1(755) 646-203510-21-2023 History and physical note Author Nico Sweet [facility] May 29, 2023 1:53am Note Date/Time May 29, 2023 1 :00am [facility] Medical Records Department [address] [place] [id number] H&P Exam - Hospitalist 05/29/23 0100 MR#: [id number] Acct: [id number] Name: JEANNA VARGAS Rep #:[id number] : 1950 72 From: Nico Nj PCP: Dr. Billy Madera MD Status:A DM IN Location: ICU ICU02-1 HPI - General General Date of Admission: 05/29/23 Date of Service: 05/29/23 Chief Complaint: Progressive worsening of shortness of breath, fever, productivecough for 1 week. HPI Narrative JEANNA VARGAS, is a 72 F who presents with history of COPD on 4 L of home oxygen was brought to ED by EMS for shortness of breath, difficulty breathing and coughfor 1 week. Patient came to ED 2 days ago on past Wednesday and was given Z-Arslan. She has just 1 tablet left. As per EMS her temperature was 101.2 Fahrenheit. Patient states she was short of breath even at rest cough, chest congestion and tightness and brings up thick yellow and brownish sputum. Patient is stated that she is too short of breath to walk within her home and take care of herself. She denies chest pressure or sharp chest pain. EMS vital shows heart rate 94 tachypneic respiratory rate 30 BP 142/86.In ED, patient was saturating 95% on 4 L of oxygen. In ED, chest x-ray was done and compared from the previous chest x-ray which shows bilateral lower lobe infiltrate. Patient given IV Solu-Medrol, DuoNeb donation, ceftriaxone and Zithromax and further admitted [facility] Medical History Anemia Anxiety and depression Asthma with COPD Atherosclerotic heart disease of [place] coronary artery without angina pectoris Back pain Chest pain Chronic back pain Chronic respiratory failure COPD (chronic obstructive pulmonary disease) Diastolic CHF Former smoker Hepatitis HLD (hyperlipidemia) Hypertension Morbid obesity Obesity MARK treated with BiPAP Psoriasis Smoking greater than 40 pack years Thyroid nodule Type 2 diabetes mellitus Home Medications Handicap Placard #1 ea 12/12/20 [Rx Last Taken Unknown] bisacodyl 5 mg tablet,delayed release (Dulcolax (bisacodyl)) 5 mg PO QHS PRN constipation 30 days #30 tabs 11/13/21 [Rx Last Taken Unknown] pen needle, diabetic 32 gauge x 532" #50 ea 02/11/22 [Rx Last Taken Unknown] blood sugar diagnostic (True Metrix Glucose Test Strip) #100 ea 09/11/22 [Rx Last Taken Unknown] blood-glucose meter (True Metrix Glucose Meter) #1 ea 09/11/22 [Rx Last Taken Unknown] albuterol sulfate 90 mcg/actuation aerosol inhaler 2 puff inhalation Q6H PRN shortness of breath or wheezing #18 grams 11/06/22 [Rx Last Taken Unknown] ipratropium 0.5 mg-albuterol 3 mg (2.5 mg base)/3 mL nebulization soln 3 ml inhalation Q4H PRN PRN SOB &/OR WHEEZING #180 mL 11/10/22 [Rx Last Taken Unknown] cane #1 ea 11/16/22 [Rx Last Taken Unknown] citalopram 40 mg tablet 40 mg PO QHS depression #90 tabs 11/16/22 [Rx Last Taken Unknown] risperidone 1 mg tablet 1 mg PO QHS anxiety #90 tabs 12/07/22 [Rx Last Taken Unknown] isosorbide mononitrate 60 mg tablet,extended release 24 hr 60 mg PO DAILY BP #90tabs 12/26/22 [Rx Last Taken Unknown] nitroglycerin 0.4 mg sublingual tablet 0.4 mg sublingual Q5-15M PRN Pain #30 tabs 12/26/22 [Rx Last Taken Unknown] flash glucose sensor ([employer] Tanika 2 Sensor kit) #2 ea 01/06/23 [Rx Last Taken Unknown] atorvastatin 80 mg tablet 80 mg PO QHS cholesterol 01/26/23 [History Last Taken Unknown] clopidogrel 75 mg tablet 75 mg PO DAILY blood thinner 01/26/23 [History Last Taken Unknown] furosemide 20 mg tablet (Lasix) 20 mg PO DAILY diuretic 01/26/23 [History Last Taken Unknown] losartan 25 mg tablet 25 mg PO DAILY blood pressure 01/26/23 [History Last Taken Unknown] metoprolol tartrate 25 mg tablet 12.5 mg PO BID blood pressure 01/26/23 [History Last Taken Unknown] flash glucose scanning reader ([employer] Tanika [employer] [place]) #1 ea 03/23/23 [Rx Last Taken Unknown] ondansetron HCl 4 mg tablet 4 mg PO Q6H PRN nausea and vomiting #14 tabs 04/16/23 [Rx Last Taken Unknown] sucralfate 1 gram tablet (Carafate) 1 g PO TID PRN acid reflux #20 tabs 04/16/23[Rx Last Taken Unknown] insulin glargine 100 unit/mL (3 mL) subcutaneous pen (Basaglar KwikPen U-100 Insulin) 36 unit (0.36 mL) subcut DAILY diabetic managment #42 mL 05/06/23 [Rx Last Taken Unknown] insulin lispro 100 unit/mL subcutaneous pen (Humalog KwikPen (U-100) Insulin) 20unit (0.2 mL) subcut TID diabetes #72 mL 05/06/23 [Rx Last Taken Unknown] alprazolam 0.25 mg tablet 0.25 mg PO QHS anxiety #30 tabs 05/12/23 [Rx Last Taken Unknown] pantoprazole 40 mg tablet,delayed release 40 mg PO BID stomach #180 tabs 05/20/23 [Rx Last Taken Unknown] potassium chloride 20 mEq tablet,extended release 20 meq PO DAILY #3 tabs 05/25/23 [Rx Last Taken Unknown] Allergy/AdvReac Type Severity Reaction Status Date / Time amoxicillin [Amoxicillin] Allergy Intermediate Rash Verified 05/28/23 22:22 hydrocodone Allergy Intermediate SWELLING Verified 05/28/23 22:22 gabapentin [From Neurontin] Allergy Shortness Verified 05/28/23 22:22 of breath levofloxacin [From Levaquin] Allergy Hives Verified 05/28/23 22:22 pseudoephedrine HCl Allergy Shortness Verified 05/28/23 22:22 [From Sudafed] of breath red dye Allergy Hives Verified 05/28/23 22:22 prednisone AdvReac Severe mean mood Verified 05/28/23 22:22 clonazepam [From Klonopin] AdvReac Depression Verified 05/28/23 22:22 codeine AdvReac HEADACHE Verified 05/28/23 22:22 Family History Brother Heart disease Mother Colon cancer Heart disease Surgical History History of cholecystectomy History of left heart catheterization (LHC) (~09/23/20) Stented coronary artery (12/28/18) Social History Smoking Status: Former smoker pack-years: 40 how long ago did patient quit smokin year ago alcohol intake: never substance use type: does not use caffeine: Yes Type: carbonated beverages and tea what type of physical activity do you participate in: none ROS ROS Narrative Constitutional: Reports fatigue and weakness. No fever. HEENT: Reports systems reviewed and no addt'l complaints, except as documented Respiratory/Chest: As described in HPI. Quit smoking 3 years ago previously used to smoke 1/2 pack/day CVS: No anginal quality chest pain or pressure. Gastrointestinal: Nausea. Denies coffee ground emesis, hematemesis or vomiting Genitourinary: Denies burning urination or new urinary tract symptoms Musculoskeletal: Denies acute joint pain or limited range of motion. No acute injury Neurologic: Denies seizure-like symptoms. skin: No ulcer. No rash Endocrinology: Reports systems reviewed and no addt'l complaints, except as documented Hematologic/Lymphatic: Reports systems reviewed and no addt'l complaints, exceptas documented Rest 14 ROS are negative except as mentioned in HPI Vital Signs Vital Signs Vital Signs: 05/28/23 22:22 05/28/23 22:27 05/28/23 22:48 Temperature 97.1 F L Temperature Source Temporal Pulse Rate 81 97 Respiratory Rate 23 H 20 H Respiratory Effort Short of Breath Accessory Muscle Use Respiratory Depth Shallow Respiratory Pattern Tachypnea Tachypnea Blood Pressure 177/68 H Blood Pressure Mean 104 Pulse Ox 98 Oxygen Delivery Method Nasal Cannula Nasal Cannula Oxygen Flow Rate (L/min) 5 05/28/23 23:06 05/28/23 23:29 05/29/23 00:42 Temperature 96.6 F L Temperature Source Temporal Pulse Rate 68 65 Respiratory Rate 18 19 H Respiratory Effort Respiratory Depth Respiratory Pattern Blood Pressure 130/58 H 137/61 H Blood Pressure Mean 82 86 Pulse Ox 94 95 97 Oxygen Delivery Method Nasal Cannula Nasal Cannula Nasal Cannula Oxygen Flow Rate (L/min) 4 4 4 05/29/23 00:46 Temperature 96.6 F L Temperature Source Pulse Rate 65 Respiratory Rate 19 H Respiratory Effort Respiratory Depth Respiratory Pattern Blood Pressure 137/61 H Blood Pressure Mean 86 Pulse Ox 97 Oxygen Delivery Method Oxygen Flow Rate (L/min) Weight Weight: 221 lb 12.56 oz Body Mass Index (BMI) 40.5 Physical Exam Narrative General: Alert, Oriented x3, Cooperative HEENT: Atraumatic, PERRLA, EOMI, Normocephalic Oral: Oral mucosa dry. No Gingival or Mucosal Lesions/ Ulcerations Neck: Supple, No JVD, Negative Carotid Bruits Lungs: Air entry diminished in bilateral lung bases. Tachypnea, bilateral coarse crepitations predominantly in lower lobes. Cardiovascular: Regular rate, Regular Rhythm, Normal S1, Normal S2, No murmurs Abdomen: Bowel Sounds Present, Soft, Non Tender, Non-Distended : No renal angle tenderness. No suprapubic tenderness. Extremities: No edema, Capillary Refill Less than 3 Seconds Skin: No rashes, No breakdown Musculoskeletal: No Tenderness to Palpation of Joints or Extremities. Bilateralknee and hip joints arthritis. Neurological: Cranial nerves II-XII grossly intact, DTR 2+/4. No acute focal neurological deficit. Psych/Mental Status: Flat affect, anxiety and mild depression. Results Lab / Micro Data 05/28/23 22:50 05/28/23 22:50 Labs: Laboratory Results - last 24 hr 05/28/23 22:50: WBC 10.1, RBC 3.66 L, Hgb 10.6 L, Hct 33.8 L, MCV 92.3, MCH 29.0, MCHC 31.4 L, RDW Std Deviation 40.8, RDW Coeff of Malcom 12.0, Plt Count 326,MPV 10.3, Immature Gran % (Auto) 0.800, Neut % (Auto) 77.6 H, Lymph % (Auto) 14.7 L, Cooke % (Auto) 4.7, Eos % (Auto) 1.6, Baso % (Auto) 0.6, Absolute Neuts (auto) 7.9 H, Absolute Lymphs (auto) 1.49, Nucleated RBC % 0, Sodium 136, Potassium 3.7, Chloride 98, Carbon Dioxide 33.0 H, Anion Gap 5, BUN 12, Creatinine 0.93, Estim Creat Clear Calc 43.88, Est GFR (MDRD) Af Amer 77, Est GFR (MDRD) Non-Af 63, BUN/Creatinine Ratio 13.0, Glucose 313 H, Lactic Acid 2.3 H*, Calcium 8.9, B-Natriuretic Peptide 87.7 Micro: Microbiology 05/28/23 23:50 Nasal Secretion SARS-CoV-2 & FLU Antigen (Rapid) - Final Radiology Impression Chest X-Ray 05/28/23 23:10 IMPRESSION: Worsening bibasilar atelectasis or pneumonia. Electronically Signed: Max Braxton MD at 23:23 EDT , Assessment & Plan Assessment/Plan (1) Bilateral pneumonia: QUALIFIERS: Pneumonia type: due to unspecified organism Lung location: lower lobe of lung Qualified Code(s): J18.9 - Pneumonia, unspecified organism (2) Acute exacerbation of chronic obstructive pulmonary disease: PLAN: Plan 1. Acute exacerbation of COPD most likely due to bilateral lower lobes pneumonia, organism unspecified-chronic hypoxic respiratory failure: Patient is being admitted in PCU. Patient had 1 dose of IV ceftriaxone and Zithromax in ED. She also had treatment with Z-Arslan at home therefore we will continue IV ceftriaxone. Doxycycline is started. Pneumonia work-up including blood cultures x2. COVID-19 PCR. Patient had full course including booster dose of COVID. Patient is being managed on scheduled bronchodilator, IV Solu-Medrol, Mucinex, incentive spirometry and Pep. Patient on full liter of oxygen continued. BiPAP as needed. Patient was last admitted in January for similar COPDexacerbation from pneumonia. Patient follows Dr. Nuno in pulmonary clinic. Lactic acid elevated most likely due to hypoxia. Patient does not have clinicalsigns and symptoms or lab features of sepsis. Sepsis ruled out. 2. CAD: Status post PCI ostial diagonal and mid LAD 12/26/2018. Patient was also admitted for unstable angina in December 2022 and at that time cardiac cath was done for abnormal stress test. Cardiac cath showed ostial lesion of jailed diagonal branch, patent LAD stent therefore no PCI was done. Continue losartan,metoprolol, isosorbide and Plavix #3. Chronic Diastolic CHF: 08/11/2021 echocardiogram with normal LV size, moderate concentric LVH, LV systolic function normal, EF 60%, pulmonary artery systolic pressure 40 mmHg, stage I diastolic dysfunction. Patient is on Lasix 20 mg along with potassium supplement continued. Patient not showing clinical features of acute heart failure exacerbation. #5. Diabetes mellitus type II: Continue home dose of Lantus insulin and lispro insulin. Continue 1800 ADA diet, accu checks w/ ISS. #6. Hypertension: Blood pressure is normal range. Continue home regimen including metoprolol, losartan, isosorbide. #7. Hyperlipidemia: Continue home statin regimen. Fasting profile in December 2022 within normal limit LDL 44, HDL 55. Continue high intensity atorvastatin. #8. Chronic normocytic anemia: Admission hemoglobin 10.6 g. On baseline. Platelet count normal. #9. Anxiety and depression: continue patient home risperidone, citalopram, alprazolam home regimen. #10. Morbid Obesity: Weight loss and lifestyle changes encouraged. #11. Other comorbidities include obstructive sleep apnea, former smoker: On BiPAP as needed at night. DVT prophylaxis: Lovenox. Living will/advanced directive/end of life care: Patient does not have living will or advanced directive. Her [id number] and son who lives in [place] is next to kin. She does not have designated power of senior trial attorney for health. After discussion of benefits/risks procedures involved with full code, DNR CC arrest and DNR CC, the patient opted for full code. Patient does want artificial life support including intubation, tube feed, ventilator and/chest compression, central venous catheter, vasopressor and DC shock if needed Total time spent in [id number] encounter in discussion of advanced directive 17 minutes. Microbiology Past 72 Hours 05/28/23 23:50 Nasal Secretion SARS-CoV-2 & FLU Antigen (Rapid) - Final Laboratory Results 05/28/23 22:50: WBC 10.1, RBC 3.66 L, Hgb 10.6 L, Hct 33.8 L, MCV 92.3, MCH 29.0, MCHC 31.4 L, RDW Std Deviation 40.8, RDW Coeff of Malcom 12.0, Plt Count 326,MPV 10.3, Immature Gran % (Auto) 0.800, Neut % (Auto) 77.6 H, Lymph % (Auto) 14.7 L, [place] % (Auto) 4.7, Eos % (Auto) 1.6, Baso % (Auto) 0.6, Absolute Neuts (auto) 7.9 H, Absolute Lymphs (auto) 1.49, Nucleated RBC % 0 Sodium 136, Potassium 3.7, Chloride 98, Carbon Dioxide 33.0 H, Anion Gap 5, BUN12, Creatinine 0.93, Estim Creat Clear Calc 43.88, Est GFR (MDRD) Af Amer 77, Est GFR (MDRD) Non-Af 63, BUN/Creatinine Ratio 13.0, Glucose 313 H, Lactic Acid 2.3 H*, Calcium 8.9, B-Natriuretic Peptide 87.7 Clinical Impression(s) from Imaging Studies Chest X-Ray 05/28/23 23:10 IMPRESSION: Worsening bibasilar atelectasis or pneumonia. Charges/Coding Visit Charges Inpatient E&M: 49065 Init Hosp L3 Procedures Hospitalists Procedures: 05376 Advncd Care Plan 30 Min 05/29/23 0153 <Electronically signed by Nico Sweet MD> Cosigner Signature (if applicable): CC: Dr. Billy Madera MD; Dr. Nico Sweet MD~ Signed [facility] Work Phone: 1([phone]) 967-414910-21-2023 Discharge summary Author Sandeep Fong [facility] May 29, 2023 12:12am Note Date/Time May 28, 2023 1 0:38pm [facility] Medical Records Department [address] [place] [address] Emergency Department Summary 05/28/23 MR#: [id number] Acct: [id number] Name: JEANNA VARGAS Rep #:[id number] : 1950 72 From: Sandeep Fong MD PCP: Dr. Billy Madera MD Status:R EG ER Location: ED HPI History of Present Illness Chief Complaint: Shortness of Breath Informant: patient Narrative Narrative: Presents by EMS with dyspnea. Patient has history of COPD. She was here couple days ago. She has been havingabout 5 days of symptoms. She states she is bringing up sputum that is yellow and syed which is different color than normal. She has now been having fevers. Fever over 101. No chest pain. No hemoptysis. No leg pain or swelling. She states she takes her inhalers and it helps but only for short time. She does live alone. She states she now just too short of breath to walk across her house and care for herself. She was seen here couple days ago. She was feelingbetter. She was started on antibiotics. She was not started on prednisone because she states she gets "mean and bitchy" with this and did not want it. But she can take the IV Solu-Medrol. She does not know of any sick contacts. She is on chronic 4 L of oxygen. [facility] Medical History Anemia Anxiety and depression Asthma with COPD Atherosclerotic heart disease of [place] coronary artery without angina pectoris Back pain Chest pain Chronic back pain Chronic respiratory failure COPD (chronic obstructive pulmonary disease) Diastolic CHF Former smoker Hepatitis HLD (hyperlipidemia) Hypertension Morbid obesity Obesity MARK treated with BiPAP Psoriasis Smoking greater than 40 pack years Thyroid nodule Type 2 diabetes mellitus Home Medications Handicap Placard #1 ea 12/12/20 [Rx Last Taken Unknown] bisacodyl 5 mg tablet,delayed release (Dulcolax (bisacodyl)) 5 mg PO QHS PRN constipation 30 days #30 tabs 11/13/21 [Rx Last Taken Unknown] pen needle, diabetic 32 gauge x 32" #50 ea 02/11/22 [Rx Last Taken Unknown] blood sugar diagnostic (True Metrix Glucose Test Strip) #100 ea 09/11/22 [Rx Last Taken Unknown] blood-glucose meter (True Metrix Glucose Meter) #1 ea 09/11/22 [Rx Last Taken Unknown] albuterol sulfate 90 mcg/actuation aerosol inhaler 2 puff inhalation Q6H PRN shortness of breath or wheezing #18 grams 11/06/22 [Rx Last Taken Unknown] ipratropium 0.5 mg-albuterol 3 mg (2.5 mg base)/3 mL nebulization soln 3 ml inhalation Q4H PRN PRN SOB &/OR WHEEZING #180 mL 11/10/22 [Rx Last Taken Unknown] cane #1 ea 11/16/22 [Rx Last Taken Unknown] citalopram 40 mg tablet 40 mg PO QHS depression #90 tabs 11/16/22 [Rx Last Taken Unknown] risperidone 1 mg tablet 1 mg PO QHS anxiety #90 tabs 12/07/22 [Rx Last Taken Unknown] isosorbide mononitrate 60 mg tablet,extended release 24 hr 60 mg PO DAILY BP #90tabs 12/26/22 [Rx Last Taken Unknown] nitroglycerin 0.4 mg sublingual tablet 0.4 mg sublingual Q5-15M PRN Pain #30 tabs 12/26/22 [Rx Last Taken Unknown] flash glucose sensor ([employer] Tanika 2 Sensor kit) #2 ea 01/06/23 [Rx Last Taken Unknown] atorvastatin 80 mg tablet 80 mg PO QHS cholesterol 01/26/23 [History Last Taken Unknown] clopidogrel 75 mg tablet 75 mg PO DAILY blood thinner 01/26/23 [History Last Taken Unknown] furosemide 20 mg tablet (Lasix) 20 mg PO DAILY diuretic 01/26/23 [History Last Taken Unknown] losartan 25 mg tablet 25 mg PO DAILY blood pressure 01/26/23 [History Last Taken Unknown] metoprolol tartrate 25 mg tablet 12.5 mg PO BID blood pressure 01/26/23 [History Last Taken Unknown] flash glucose scanning reader ([employer] Tanika [employer] [place]) #1 ea 03/23/23 [Rx Last Taken Unknown] ondansetron HCl 4 mg tablet 4 mg PO Q6H PRN nausea and vomiting #14 tabs 04/16/23 [Rx Last Taken Unknown] sucralfate 1 gram tablet (Carafate) 1 g PO TID PRN acid reflux #20 tabs 04/16/23[Rx Last Taken Unknown] insulin glargine 100 unit/mL (3 mL) subcutaneous pen (Basaglar KwikPen U-100 Insulin) 36 unit (0.36 mL) subcut DAILY diabetic managment #42 mL 05/06/23 [Rx Last Taken Unknown] insulin lispro 100 unit/mL subcutaneous pen (Humalog KwikPen (U-100) Insulin) 20unit (0.2 mL) subcut TID diabetes #72 mL 05/06/23 [Rx Last Taken Unknown] alprazolam 0.25 mg tablet 0.25 mg PO QHS anxiety #30 tabs 05/12/23 [Rx Last Taken Unknown] pantoprazole 40 mg tablet,delayed release 40 mg PO BID stomach #180 tabs 05/20/23 [Rx Last Taken Unknown] potassium chloride 20 mEq tablet,extended release 20 meq PO DAILY #3 tabs 05/25/23 [Rx Last Taken Unknown] Allergy/AdvReac Type Severity Reaction Status Date / Time amoxicillin [Amoxicillin] Allergy Intermediate Rash Verified 05/28/23 22:22 hydrocodone Allergy Intermediate SWELLING Verified 05/28/23 22:22 gabapentin [From Neurontin] Allergy Shortness Verified 05/28/23 22:22 of breath levofloxacin [From Levaquin] Allergy Hives Verified 05/28/23 22:22 pseudoephedrine HCl Allergy Shortness Verified 05/28/23 22:22 [From Sudafed] of breath red dye Allergy Hives Verified 05/28/23 22:22 prednisone AdvReac Severe mean mood Verified 05/28/23 22:22 clonazepam [From Klonopin] AdvReac Depression Verified 05/28/23 22:22 codeine AdvReac HEADACHE Verified 05/28/23 22:22 Family History Brother Heart disease Mother Colon cancer Heart disease Surgical History History of cholecystectomy History of left heart catheterization (LHC) (~09/23/20) Stented coronary artery (12/28/18) Social History Smoking Status: Former smoker pack-years: 40 how long ago did patient quit smokin year ago alcohol intake: never substance use type: does not use caffeine: Yes Type: carbonated beverages and tea what type of physical activity do you participate in: none ROS ROS ED ROS Narrative A complete review of systems was performed and is negative except as documented in the history of present illness. Some specific details below. Constitutional: Positive recent fevers now. EYE: No discharge, visual complaints, or pain. ENT: No difficulty swallowing. No GERD symptoms. No stridor. CV: She denies chest pain or palpitations. Respiratory: See history of present illness. GI: No abdominal pain. No nausea vomiting diarrhea. No blood in stool. : No frequency dysuria or hematuria. Musculoskeletal: No recent trauma. No pains. No swelling. Skin: No rash. Nondiaphoretic. Neuro: No focal weakness or numbness. Endocrine: No polyuria or polydipsia. EXAM Physical Exam Narrative Exam Narrative: CONSTITUTIONAL: Patient is nontoxic. But work of breathing is certainly increased. HEENT: No notable trauma. Mucous membranes moist. EYES: No conjunctival injection. No proptosis. No pallor. NECK:No JVD. No stridor. CARDIOVASCULAR: Regular rate. Regular rhythm. No notable murmur. No JVD. RESPIRATORY: No respiratory distress. But she has increased work of breathing. She has increased respiratory rate. Saturations now are about 94% on 5 L. We will see if we can turn her down to her 4 L level. I can hear diffuse wheezing throughout. She does have coughing. No sputum was produced while I was in the room. GASTROINTESTINAL: Obese but not distended. Bowel sounds are normal. No tenderness. No guarding. No rebound. No palpable mass. No bruit is heard. GENITOURINARY: No tenderness over the bladder. MUSCULOSKELETAL: Atraumatic. No notable edema. No asymmetry. NEUROLOGICAL: Patient is alert and appropriate. No focal deficit noted. She is not at all sleepy or lethargic. No indication of CO2 retention. SKIN: No noted rashes. No diaphoresis. PSYCHIATRIC: Patient is calm. Mood is appropriate. Const Vital Signs: 05/28/23 22:22 05/28/23 22:27 05/28/23 22:48 Temperature 97.1 F L Temperature Source Temporal Pulse Rate 81 97 Respiratory Rate 23 H 20 H Respiratory Effort Short of Breath Accessory Muscle Use Respiratory Depth Shallow Respiratory Pattern Tachypnea Tachypnea Blood Pressure 177/68 H Blood Pressure Mean 104 Pulse Ox 98 Oxygen Delivery Method Nasal Cannula Nasal Cannula Oxygen Flow Rate (L/min) 5 05/28/23 23:06 05/28/23 23:29 Temperature Temperature Source Pulse Rate 68 Respiratory Rate 18 Respiratory Effort Respiratory Depth Respiratory Pattern Blood Pressure 130/58 H Blood Pressure Mean 82 Pulse Ox 94 95 Oxygen Delivery Method Nasal Cannula Nasal Cannula Oxygen Flow Rate (L/min) 4 4 MDM MDM MDM Narrative Medical decision making narrative: My independent interpretation of the patient's single view chest x-ray shows increased markings at the left base definitely in a little bit at the right. This seems worse than 1 from 2 days ago when I compare it even allowing for technique. Final reading is agrees and is similar to this. CBC shows very mild anemia. Slight elevation of white count from the other day but still within normal limits. Electrolytes show elevation of glucose at 313. She is given IV fluids that should help bring this down. BNP is not notably elevated at 87.7 Lactate is plated 2.3. Patient is given azithromycin here. She has allergies to multiple antibiotics. She has allergies to steroids but states she can take IV Solu-Medrol so this wasgiven. I am giving her some IV fluids. But she also is on Lasix and has some history of CHF. Since her blood pressure and heart rate are good now I do not want to give her 30 cc/kg as I think we could cause more injury than benefit in this case. She also was not showing signs of an acute kidney injury. I think alot of her weighted lactate may be from poor oxygenation rather than poor perfusion. With her bringing up more sputum, fevers, living alone, hypoxia, elevated lactate, worsening x-ray despite antibiotics inpatient management is appropriate. I have got the hospitalist on page. Lab Data Attestation: I reviewed the patient's lab results. Labs: Laboratory Results - last 24 hr 05/28/23 22:50 WBC 10.1 RBC 3.66 L Hgb 10.6 L Hct 33.8 L MCV 92.3 MCH 29.0 MCHC 31.4 L RDW Std Deviation 40.8 RDW Coeff of Malcom 12.0 Plt Count 326 MPV 10.3 Immature Gran % (Auto) 0.800 Neut % (Auto) 77.6 H Lymph % (Auto) 14.7 L Cooke % (Auto) 4.7 Eos % (Auto) 1.6 Baso % (Auto) 0.6 Absolute Neuts (auto) 7.9 H Absolute Lymphs (auto) 1.49 Nucleated RBC % 0 Sodium 136 Potassium 3.7 Chloride 98 Carbon Dioxide 33.0 H Anion Gap 5 BUN 12 Creatinine 0.93 Estim Creat Clear Calc 43.88 Est GFR (MDRD) Af Amer 77 Est GFR (MDRD) Non-Af 63 BUN/Creatinine Ratio 13.0 Glucose 313 H Lactic Acid 2.3 H* Calcium 8.9 B-Natriuretic Peptide 87.7 Radiography Diagnostic Testing: Clinical Impression(s) from Imaging Studies Chest X-Ray 05/28/23 23:10 IMPRESSION: Worsening bibasilar atelectasis or pneumonia. Electronically Signed: Max Braxton MD at 23:23 EDT , EKG Initial EKG: Comments: My independent interpretation of the patient's EKG shows normal sinus rhythm with a rate of 77. Bit of irregularity of baseline but no sign of acute ST elevation or depression. No ventricular ectopy. CO interval, QRS duration and QTc are normal. Management Discussion w/another healthcare provider: Hospitalist Discharge Plan Dx/Rx/DC Orders Clinical Impression: Failure of outpatient treatment, Acute exacerbation of chronic obstructive pulmonary disease, Sepsis, Bilateral pneumonia, Acidosis, lactic Disposition Disposition: Acute Care Hospital [facility] What to do if you have Problems For any increased pain, shortness of breath, bleeding, nausea or vomiting, chestpain, or any unexpected problems, contact your Primary Care Provider. Call [facility] ([phone]) or report to the closest Emergency Room. Call 911 if necessary. 05/29/23 0012 <Electronically signed by Sandeep Fong MD> Cosigner Signature (if applicable): CC: Dr. Billy Madera MD ~ Signed [facility] Work Phone: [phone]) 386-476109-09-2023 Discharge summary Author Sera Aguilar [facility] April 16, 2023 11:36pm Note Date/Time April 16, 2023 11:21pm [facility] Medical Records Department [address] [place] [address] Emergency Department Summary 04/16/23 MR#: [id number] Acct: [id number] Name: JEANNA VARGAS Rep #:[id number] : 1950 72 From: Sera Reynoso PCP: Dr. Billy Madera MD Status:R EG ER Location: ED HPI History of Present Illness Chief Complaint: Shortness of Breath Informant: patient Narrative Narrative: Patient is a 72-year-old female with history of type 2 diabetes mellitus, chronic respiratory failure on 4 L nasal cannula, GERD, anxiety, hypertension, CHF, hyperlipidemia presenting with multiple complaints. Patient states for thepast week she been having headache, stomachache, left chest discomfort does not go into her left arm, increased phlegm production, epigastric abdominal discomfort, indigestion and nausea. She also notes that she has been feeling warm at night and cold during the day. She denies any fever. Denies any swelling of her legs. Has been feeling dizzy for the past week as well. Notes that she did have some diarrhea about 2 weeks ago that since resolved. She had normal bowel movement this morning. She said some decreased gas production. She initially went to urgent care and had a COVID test which was negative. Given her symptoms including chest pain they recommend she come to the ER for further evaluation. Patient's main complaint seems to be her epigastric discomfort and indigestion. No increased O2 requirements. [facility] Medical History Anemia Anxiety and depression Asthma with COPD Atherosclerotic heart disease of [place] coronary artery without angina pectoris Back pain Chest pain Chronic back pain Chronic respiratory failure COPD (chronic obstructive pulmonary disease) Diastolic CHF Former smoker Hepatitis HLD (hyperlipidemia) Hypertension Morbid obesity Obesity MARK treated with BiPAP Psoriasis Smoking greater than 40 pack years Thyroid nodule Type 2 diabetes mellitus Home Medications Handicap Placard #1 ea 12/12/20 [Rx Last Taken Unknown] acetaminophen 500 mg tablet 500 mg PO QHS pain 10/21/21 [History Last Taken Unknown] bisacodyl 5 mg tablet,delayed release (Dulcolax (bisacodyl)) 5 mg PO QHS PRN constipation 30 days #30 tabs 11/13/21 [Rx Last Taken Unknown] pen needle, diabetic 32 gauge x " #50 ea 02/11/22 [Rx Last Taken Unknown] blood sugar diagnostic (True Metrix Glucose Test Strip) #100 ea 09/11/22 [Rx Last Taken Unknown] blood-glucose meter (True Metrix Glucose Meter) #1 ea 09/11/22 [Rx Last Taken Unknown] albuterol sulfate 90 mcg/actuation aerosol inhaler 2 puff inhalation Q6H PRN shortness of breath or wheezing #18 grams 11/06/22 [Rx Last Taken Unknown] ipratropium 0.5 mg-albuterol 3 mg (2.5 mg base)/3 mL nebulization soln 3 ml inhalation Q4H PRN PRN SOB &/OR WHEEZING #180 mL 11/10/22 [Rx Last Taken Unknown] cane #1 ea 11/16/22 [Rx Last Taken Unknown] citalopram 40 mg tablet 40 mg PO QHS depression #90 tabs 11/16/22 [Rx Last Taken Unknown] risperidone 1 mg tablet 1 mg PO QHS anxiety #90 tabs 12/07/22 [Rx Last Taken Unknown] isosorbide mononitrate 60 mg tablet,extended release 24 hr 60 mg PO DAILY BP #90tabs 12/26/22 [Rx Last Taken Unknown] nitroglycerin 0.4 mg sublingual tablet 0.4 mg sublingual Q5-15M PRN Pain #30 tabs 12/26/22 [Rx Last Taken Unknown] flash glucose sensor (FreeStyle Tanika 2 Sensor kit) #2 ea 01/06/23 [Rx Last Taken Unknown] atorvastatin 80 mg tablet 80 mg PO QHS cholesterol 01/26/23 [History Last Taken Unknown] clopidogrel 75 mg tablet 75 mg PO DAILY blood thinner 01/26/23 [History Last Taken Unknown] furosemide 20 mg tablet (Lasix) 20 mg PO DAILY diuretic 01/26/23 [History Last Taken Unknown] insulin lispro 100 unit/mL subcutaneous pen (Humalog KwikPen (U-100) Insulin) 20unit subcut TID diabetes 01/26/23 [History Last Taken Unknown] losartan 25 mg tablet 25 mg PO DAILY blood pressure 01/26/23 [History Last Taken Unknown] metoprolol tartrate 25 mg tablet 12.5 mg PO BID blood pressure 01/26/23 [History Last Taken Unknown] pantoprazole 40 mg tablet,delayed release 40 mg PO DAILY stomach 01/26/23 [History Last Taken Unknown] insulin glargine 100 unit/mL (3 mL) subcutaneous pen (Basaglar KwikPen U-100 Insulin) 36 unit subcut DAILY diabetic managment 02/25/23 [History Last Taken Unknown] flash glucose scanning reader ([employer] Tanika 2 [place]) #1 ea 03/23/23 [Rx Last Taken Unknown] alprazolam 0.25 mg tablet 0.25 mg PO QHS anxiety #30 tabs 04/13/23 [Rx Last Taken Unknown] ondansetron HCl 4 mg tablet 4 mg PO Q6H PRN nausea and vomiting #14 tabs 04/16/23 [Rx Last Taken Unknown] sucralfate 1 gram tablet (Carafate) 1 g PO TID PRN acid reflux #20 tabs 04/16/23[Rx Last Taken Unknown] Allergy/AdvReac Type Severity Reaction Status Date / Time amoxicillin [Amoxicillin] Allergy Intermediate Rash Verified 04/16/23 18:29 hydrocodone Allergy Intermediate SWELLING Verified 04/16/23 18:29 gabapentin [From Neurontin] Allergy Shortness Verified 04/16/23 18:29 of breath levofloxacin [From Levaquin] Allergy Hives Verified 04/16/23 18:29 pseudoephedrine HCl Allergy Shortness Verified 04/16/23 18:29 [From Sudafed] of breath red dye Allergy Hives Verified 04/16/23 18:29 prednisone AdvReac Severe mean mood Verified 04/16/23 18:29 clonazepam [From Klonopin] AdvReac Depression Verified 04/16/23 18:29 codeine AdvReac HEADACHE Verified 04/16/23 18:29 Family History Brother Heart disease Mother Colon cancer Heart disease Surgical History History of cholecystectomy History of left heart catheterization (LHC) (~09/23/20) Stented coronary artery (12/28/18) Social History Smoking Status: Former smoker pack-years: 40 how long ago did patient quit smokin year ago alcohol intake: never substance use type: does not use caffeine: Yes Type: carbonated beverages and tea what type of physical activity do you participate in: none ROS ROS ED Constitutional Constitutional ED: Reports chills; Denies fever(s) Eyes Eyes: Denies change in vision ENT ENT ED: Denies rhinorrhea or sore throat Cardiovascular Cardiovascular: Reports chest pain and racing heartbeat Respiratory/Chest Respiratory/Chest: Reports cough and sputum; Denies dyspnea Gastrointestinal Gastrointestinal: Reports abdominal pain and nausea; Denies constipation, diarrhea or vomiting Genitourinary Genitourinary ED: Denies dysuria or hematuria Musculoskeletal Musculoskeletal: Denies arthralgias or myalgias Integumentary Denies rash Neurologic Neurologic: Reports headache(s) Endocrine Endocrinology: Reports cold intolerance Hematologic/Lymphatic Hematologic/Lymphatic: Denies easy bleeding or easy bruising EXAM Physical Exam Const Vital Signs: 04/16/23 18:29 04/16/23 19:24 04/16/23 19:25 Temperature 96 F L Temperature Source Temporal Pulse Rate 77 72 Respiratory Rate 22 H 33 H Respiratory Effort Short of Breath Respiratory Depth Shallow Respiratory Pattern Blood Pressure 156/71 H 126/80 H Blood Pressure Mean 99 95 Pulse Ox 100 98 Oxygen Delivery Method Nasal Cannula Nasal Cannula Nasal Cannula Oxygen Flow Rate (L/min) 4 4 4 04/16/23 21:47 Temperature Temperature Source Pulse Rate 68 Respiratory Rate 24 H Respiratory Effort Respiratory Depth Respiratory Pattern Tachypnea Blood Pressure Blood Pressure Mean Pulse Ox Oxygen Delivery Method Oxygen Flow Rate (L/min) Positive well nourished and well developed General Appearance ED: well developed and NAD Eyes PERRL and EOMs intact bilaterally Neck supple and no JVD General: Negative for tenderness Chest Wall inspection of chest normal and palpation of chest normal Resp normal respiratory effort and clear to auscultation bilaterally Auscultation: Negative for wheezes Cardio regular rate, regular rhythm and no murmurs GI non-distended Auscultation: normoactive bowel sounds Palpation: soft and tender epigastric and RLQ; Negative for guarding Back/Spine no CVA tenderness Extremity normal to inspection General Extremety ED: Negative for edema General Extremity: Negative for edema Neuro oriented x3 Sensorium / Orientation: alert Motor Exam: Negative for general weakness Psych mental status grossly normal Skin no rashes or lesions noted and no wounds MDM MDM MDM Narrative Medical decision making narrative: Patient is a 72-year-old female presenting with multiple complaints. She had a previous negative [facility] test [facility] earlier today. I do not think this requires repeating. Differential is broad and includes ACS, pneumonia, GERD, pancreatitis, small bowel obstruction, dehydration and electrolyte abnormality. Lab work large unremarkable including a CBC, CMP, lipase, urinalysis and delta high-sensitivity troponin. Urinalysis consistent with contamination but not a UTI. She is hyperglycemic but does have a history of diabetes. She does reportthat her blood sugar has been running higher lately. She has a stable hyponatremia with a sodium of 130. I do not think this is the culprit for her symptoms. She has a normal anion gap and I do not suspect DKA or HHNK. CT abdomen pelvis obtained which is patient is an abdominal surgical history (cholecystectomy). This is negative for any acute process. Chest x-ray reviewed by myself as well as radiology shows chronic changes but no acute consolidation. Patient is not having increased O2 requirements. She ambulates decently to and from the bathroom while in the emergency room. On my initial evaluation she states she is not really having any symptoms at this time and declines any medication. While in the ER she does request breathing treatment isgiven a DuoNeb. She is put on some gentle IV fluids at 150 an hour. On repeat evaluation she states since laying on the CT table her epigastric discomfort is worse. She given a GI cocktail. Work-up is not consistent with ACS given her nonischemic EKG I am normal high-sensitivity troponins. I do not think she requires admission for further cardiac evaluation at this time. Patient is her symptoms were going on for a week and her work-up is so normal atthis time. Possible she has a viral syndrome could be causing it. Discussed that hopefully will be self-limited and that is the case. She will be started on Zofran and sucralfate for further symptom control. Given return precautions. She verbalizes agreement understand this plan. Lab Data Attestation: I reviewed the patient's lab results. Labs: Laboratory Results - last 24 hr 04/16/23 04/16/23 04/16/23 20:00 20:15 22:29 WBC 10.9 RBC 3.97 L Hgb 11.6 L Hct 36.7 L MCV 92.4 MCH 29.2 MCHC 31.6 L RDW Std Deviation 40.9 RDW Coeff of Malcom 11.9 Plt Count 276 MPV 10.5 Immature Gran % (Auto) 0.600 Neut % (Auto) 76.4 H Lymph % (Auto) 13.6 L Cooke % (Auto) 6.5 Eos % (Auto) 2.2 Baso % (Auto) 0.7 Absolute Neuts (auto) 8.3 H Absolute Lymphs (auto) 1.48 Nucleated RBC % 0 Sodium 130 L Potassium 4.3 Chloride 91 L Carbon Dioxide 33.0 H Anion Gap 6 BUN 12 Creatinine 0.97 Estim Creat Clear Calc 42.07 Est GFR (MDRD) Af Amer 72 Est GFR (MDRD) Non-Af 60 BUN/Creatinine Ratio 12.3 Glucose 374 H Calcium 9.4 Total Bilirubin 0.30 AST 10 L ALT 20 Alkaline Phosphatase 142 H Troponin I High Sens 8 9 B-Natriuretic Peptide 42.3 Total Protein 7.1 Albumin 3.5 Globulin 3.6 Albumin/Globulin Ratio 1.0 Lipase 23 Urine Color Yellow Urine Clarity Clear Urine pH 6.0 Ur Specific Sprague 1.010 Urine Protein Negative Urine Glucose (UA) 1000 H Urine Ketones Negative Urine Occult Blood Negative Urine Nitrite Negative Urine Bilirubin Negative Urine Urobilinogen Normal Ur Leukocyte Esterase Negative Urine RBC 0 SEEN Urine WBC 0 SEEN Ur Squamous Epith Cells 10-25 SEEN Urine Bacteria 1+ Urine Mucus 0 SEEN Radiography Chest X-Ray - ED: 2 View, Read by ED Physician, Read by Radiologist, No Acute Disease and Chronic Changes Diagnostic Testing: Clinical Impression(s) from Imaging Studies Chest X-Ray 04/16/23 20:25 IMPRESSION: Probable chronic blunting/pleural thickening left costophrenic angle. No acute consolidative process. Electronically Signed: Vaughn Santizo MD at 20:52 EDT , Abdomen/Pelvis CT 04/16/23 20:36 IMPRESSION: No acute findings in the abdomen or pelvis. Electronically Signed: Vaughn Santizo MD at 22:24 EDT Reading Location ID and State: [address] [place] [address] Tel , Service support , Rhythm Strip Rhythm Strip: Sinus Rhythm Rate: 76 Ectopy: None EKG Initial EKG: Attestation: I personally reviewed and interpreted this EKG as follows: Interpretation: Sinus Rhythm Comments: Normal sinus rhythm rate of 76 bpm Rightward superior axis deviation Normal intervals Normal ST segments Compared to prior EKG patient now has a rightward axis, question limb lead reversal as there is also amplitude reversal change in all limb leads Discharge Plan Triage Chief Complaint: Shortness of Breath Other Complaint: Abd Pain Diarrhea Dizziness ED Provider: Sera Aguilar Dx/Rx/DC Orders Clinical Impression: Headache, Abdominal pain, epigastric, Chest discomfort Instructions: ED Abdominal Pain Unkn Cause Fem, ED Dizziness, Uncertain Cause, ED Viral Syndrome (Adult) Prescriptions: New sucralfate [Carafate] 1 gram tablet 1 g PO TID PRN (Reason: acid reflux) Qty: 20 0RF ondansetron HCl 4 mg tablet 4 mg PO Q6H PRN (Reason: nausea and vomiting) Qty: 14 0RF No Action (DME) Handicap Placard See Rx Instructions .ROUTE .MEDSUPPLY Qty: 1 0RF Rx Instructions: As directed, length of time 3 years citalopram 40 mg tablet 40 mg PO QHS Qty: 90 3RF (DME) cane Device See Rx Instructions .Route Qty: 1 0RF Rx Instructions: As directed insulin glargine [Basaglar KwikPen U-100 Insulin] 100 unit/mL (3 mL) insulin pen 36 unit subcut DAILY Rx Instructions: daily at bedtime acetaminophen 500 MG tablet 500 mg PO QHS Rx Instructions: over the counter. no prescription required. isosorbide mononitrate 60 mg tablet extended release 24 hr 60 mg PO DAILY Qty: 90 3RF nitroglycerin 0.4 mg tablet, sublingual 0.4 mg SUBLINGUAL Q5-15M PRN (Reason: Pain) Qty: 30 0RF atorvastatin 80 mg tablet 80 mg PO QHS clopidogrel 75 mg tablet 75 mg PO DAILY pantoprazole 40 mg tablet,delayed release (DR/EC) 40 mg PO DAILY losartan 25 mg tablet 25 mg PO DAILY furosemide [Lasix] 20 mg tablet 20 mg PO DAILY insulin lispro [Humalog KwikPen Insulin] 100 unit/mL insulin pen 20 unit SC TID Rx Instructions: Hold if glucose less than 130 mg/dl metoprolol tartrate 25 mg tablet 12.5 mg PO BID Rx Instructions: bisacodyl [Dulcolax (bisacodyl)] 5 mg tablet,delayed release (DR/EC) 5 mg PO QHS PRN (Reason: constipation) 30 Days Qty: 30 3RF (DME) pen needle, diabetic 32 gauge x 5/32" needle See Rx Instructions .ROUTE .MEDSUPPLY Qty: 50 0RF Rx Instructions: 4x/day (DME) blood-glucose meter [True Metrix Glucose Meter] Misc See Rx Instructions .Route Qty: 1 0RF Rx Instructions: As directed (DME) True Metrix Glucose Test Strip Strip See Rx Instructions .Route Qty: 100 7RF Rx Instructions: tid albuterol sulfate 90 mcg/actuation HFA aerosol inhaler 2 puff INHALATION Q6H PRN (Reason: shortness of breath or wheezing) Qty: 18 3RF ipratropium-albuterol 0.5 mg-3 mg(2.5 mg base)/3 mL solution for nebulization 3 ml INHALATION Q4H PRN PRN (Reason: SOB &/OR WHEEZING) Qty: 180 6RF risperidone 1 mg tablet 1 mg PO QHS Qty: 90 1RF (DME) FreeStyle Tanika 2 Sensor Kit See Rx Instructions .ROUTE .MEDSUPPLY Qty: 2 3RF Rx Instructions: As directed (DME) FreeStyle Tanika 2 [place] Misc See Rx Instructions .ROUTE .MEDSUPPLY Qty: 1 0RF Rx Instructions: As directed alprazolam 0.25 mg tablet 0.25 mg PO QHS Qty: 30 0RF Primary Care Provider: Billy Madera Referrals: Billy Madera MD [Primary Care Provider] - Activity Restrictions/Additional Instructions: Your work-up showed your blood sugar was mildly elevated but otherwise was largely normal. The exact cause your symptoms is not clear. Is possible some type of viral syndrome. Make sure you are drinking enough water and watching her sugar intake. Please follow-up with your primary care doctor but return to the ER if you have a worsening of your symptoms or have further concerns. What to do if you have Problems For any increased pain, shortness of breath, bleeding, nausea or vomiting, chestpain, or any unexpected problems, contact your Primary Care Provider. Call [facility] ([phone]) or report to the closest Emergency Room. Call 911 if necessary. 04/16/23 5596 <Electronically signed by Sera Aguilar DO> Cosigner Signature (if applicable): CC: Dr. Billy Madera MD ~ Signed [facility] Work Phone: [phone] Discharge summary Author Pasha Thornton [facility] March 19, 2023 1:29am Note Date/Time March 18, 2023 11 :08pm [facility] Medical Records Department [address] [place] [address] Emergency Department Summary 03/18/23 MR#: [id number] Acct: [id number] Name: JEANNA VARGAS Rep #:[id number] : 1950 72 From: Pasha Thornton MD PCP: Dr. Billy Madera MD Status:R ER Location: ED HPI History of Present Illness Chief Complaint: Chest Pain Detail of Chief Complaint: Chest pressure and shortness of breath Informant: patient Onset/Context/Timing Onset: Hours Activity at onset: sudden and rest Timing: Intermittent (Total duration 30 to 45 minutes) Quality: Positive for Heaviness (Patient states it felt like there was a heavy book on her chest) Location: Substernal Current Severity: Gone Maximum Severity: Moderate Worsened By: Nothing Relieved By: NTG (15 minutes after she took the nitro) Associated Symptoms: Positive for Dyspnea; Negative for Nausea, Vomiting, Diaphoresis, Cough, Fever, Lightheadedness, Acid Reflux or Palpitations Narrative Narrative: Patient is a 72-year-old woman with history of coronary disease. She has [address] She states she is never had an IN. She does have history of congestive heart failure with approximately 3 pillow orthopnea. She also essential hypertension, hyperlipidemia. There is a history of GERD with De La Vega's esophagitis. Patient also has history of type 2 diabetes. Prior Similar Symptoms: Yes and With Prior Angina Recent Illness/Hospitalization: No CVD Risk Factors: Positive for Hypertension, Diabetes, Hypercholesterolemia and Smoking PE Risk Factors: Negative for Recent Travel/Surgery, Recent Immobilization, Prior DVT or PE, Cancer or OCP + Smoking + >/=35 TAD Risk Factors: Positive for Hypertension and Family History; Negative for Marfan's Syndrome [facility] Medical History Anemia Anxiety and depression Asthma with COPD Atherosclerotic heart disease of [place] coronary artery without angina pectoris Back pain Chest pain Chronic back pain Chronic respiratory failure COPD (chronic obstructive pulmonary disease) Diastolic CHF Former smoker Hepatitis HLD (hyperlipidemia) Hypertension Morbid obesity Obesity MARK treated with BiPAP Psoriasis Smoking greater than 40 pack years Thyroid nodule Type 2 diabetes mellitus Home Medications Handicap Placard #1 ea 12/12/20 [Rx Last Taken Unknown] flash glucose scanning reader ([employer] Tanika 2 [place]) #1 ea 01/31/21 [Rx Last Taken Unknown] acetaminophen 500 mg tablet 500 mg PO QHS pain 10/21/21 [History Last Taken Unknown] bisacodyl 5 mg tablet,delayed release (Dulcolax (bisacodyl)) 5 mg PO QHS PRN constipation 30 days #30 tabs 11/13/21 [Rx Last Taken Unknown] pen needle, diabetic 32 gauge x 32" #50 ea 02/11/22 [Rx Last Taken Unknown] blood sugar diagnostic (True Metrix Glucose Test Strip) #100 ea 09/11/22 [Rx Last Taken Unknown] blood-glucose meter (True Metrix Glucose Meter) #1 ea 09/11/22 [Rx Last Taken Unknown] albuterol sulfate 90 mcg/actuation aerosol inhaler 2 puff inhalation Q6H PRN shortness of breath or wheezing #18 grams 11/06/22 [Rx Last Taken Unknown] ipratropium 0.5 mg-albuterol 3 mg (2.5 mg base)/3 mL nebulization soln 3 ml inhalation Q4H PRN PRN SOB &/OR WHEEZING #180 mL 11/10/22 [Rx Last Taken Unknown] cane #1 ea 11/16/22 [Rx Last Taken Unknown] citalopram 40 mg tablet 40 mg PO QHS depression #90 tabs 11/16/22 [Rx Last Taken Unknown] risperidone 1 mg tablet 1 mg PO QHS anxiety #90 tabs 12/07/22 [Rx Last Taken Unknown] isosorbide mononitrate 60 mg tablet,extended release 24 hr 60 mg PO DAILY BP #90tabs 12/26/22 [Rx Last Taken Unknown] nitroglycerin 0.4 mg sublingual tablet 0.4 mg sublingual Q5-15M PRN Pain #30 tabs 12/26/22 [Rx Last Taken Unknown] flash glucose sensor ([employer] Tanika 2 Sensor kit) #2 ea 01/06/23 [Rx Last Taken Unknown] atorvastatin 80 mg tablet 80 mg PO QHS cholesterol 01/26/23 [History Last Taken Unknown] clopidogrel 75 mg tablet 75 mg PO DAILY blood thinner 01/26/23 [History Last Taken Unknown] furosemide 20 mg tablet (Lasix) 20 mg PO DAILY diuretic 01/26/23 [History Last Taken Unknown] insulin lispro 100 unit/mL subcutaneous pen (Humalog KwikPen (U-100) Insulin) 20unit subcut TID diabetes 01/26/23 [History Last Taken Unknown] losartan 25 mg tablet 25 mg PO DAILY blood pressure 01/26/23 [History Last Taken Unknown] metoprolol tartrate 25 mg tablet 12.5 mg PO BID blood pressure 01/26/23 [History Last Taken Unknown] pantoprazole 40 mg tablet,delayed release 40 mg PO DAILY stomach 01/26/23 [History Last Taken Unknown] insulin glargine 100 unit/mL (3 mL) subcutaneous pen (Basaglar KwikPen U-100 Insulin) 36 unit subcut DAILY diabetic managment 02/25/23 [History Last Taken Unknown] alprazolam 0.25 mg tablet 0.25 mg PO QHS anxiety #30 tabs 03/11/23 [Rx Last Taken Unknown] Allergy/AdvReac Type Severity Reaction Status Date / Time amoxicillin [Amoxicillin] Allergy Intermediate Rash Verified 03/18/23 20:58 hydrocodone Allergy Intermediate SWELLING Verified 03/18/23 20:58 gabapentin [From Neurontin] Allergy Shortness Verified 03/18/23 20:58 of breath levofloxacin [From Levaquin] Allergy Hives Verified 03/18/23 20:58 pseudoephedrine HCl Allergy Shortness Verified 03/18/23 20:58 [From Sudafed] of breath red dye Allergy Hives Verified 03/18/23 20:58 prednisone AdvReac Severe mean mood Verified 03/18/23 20:58 clonazepam [From Klonopin] AdvReac Depression Verified 03/18/23 20:58 codeine AdvReac HEADACHE Verified 03/18/23 20:58 Family History Brother Heart disease Mother Colon cancer Heart disease Surgical History History of cholecystectomy History of left heart catheterization (LHC) (~09/23/20) Stented coronary artery (12/28/18) Social History Smoking Status: Former smoker pack-years: 40 how long ago did patient quit smokin year ago alcohol intake: never substance use type: does not use caffeine: Yes Type: carbonated beverages and tea what type of physical activity do you participate in: none ROS ROS ED Constitutional Constitutional ED: Denies chills, fever(s), subjective, sweats or weight loss Eyes Eyes: Reports none; Denies blurry vision or change in vision ENT ENT ED: Denies ear pain, rhinorrhea or sore throat Cardiovascular Cardiovascular: Reports as per HPI and orthopnea; Denies paroxysmal nocturnal dyspnea Respiratory/Chest Respiratory/Chest: Reports dyspnea and orthopnea; Denies cough or paroxysmal nocturnal dyspnea Gastrointestinal Gastrointestinal: Denies abdominal pain, constipation, diarrhea, melena, nausea or vomiting Genitourinary Genitourinary ED: Denies dysuria, hematuria or urinary frequency Musculoskeletal Musculoskeletal: Denies arthralgias, back pain, myalgias or neck pain Integumentary Denies rash Neurologic Neurologic: Denies headache(s) or paresthesias Psychiatric Psychiatric: Denies anxiety or depression Endocrine Endocrinology: Denies cold intolerance or heat intolerance Hematologic/Lymphatic Hematologic/Lymphatic: Denies easy bleeding or easy bruising EXAM Physical Exam Const Vital Signs: 03/18/23 20:55 03/18/23 20:58 03/18/23 21:11 Temperature 98.1 F Temperature Source Temporal Pulse Rate 75 Respiratory Rate 10 L Respiratory Effort Blood Pressure 166/81 H Blood Pressure Mean 109 Pulse Ox 96 Oxygen Delivery Method Nasal Cannula Nasal Cannula Oxygen Flow Rate (L/min) 3 4 03/18/23 21:11 03/18/23 21:54 03/18/23 22:00 Temperature Temperature Source Pulse Rate Respiratory Rate 30 H 30 H Respiratory Effort Short of Breath Blood Pressure Blood Pressure Mean Pulse Ox Oxygen Delivery Method Oxygen Flow Rate (L/min) Positive well nourished, well developed and obese General Appearance ED: well developed, NAD and pallor Nutritional Appearance: obese HEENT Reports TM's clear and moist mucous membranes normocephalic and atraumatic Tympanic Membrane ED: Yes TM's clear Eyes PERRL and EOMs intact bilaterally General Eye ED: Negative for pale conjunctiva or scleral icterus Neck no lymphadenopathy, supple and no JVD Chest Wall palpation of chest normal Resp normal respiratory effort and clear to auscultation bilaterally Cardio regular rate, regular rhythm, S1 normal heart sound, S2 normal heart sound and no murmurs Peripheral Pulses: pulses 2+ throughout GI normal to inspection, nondistended, normoactive bowel sounds, soft to palpation,non-tender, non-distended and no masses; Negative for hepatosplenomegaly GI Narrative: There is no palpable pulsatile mass. There is no abdominal bruit. Back/Spine no CVA tenderness and no thoracic nor lumbar tenderness Extremity General Extremety ED: Yes edema; Negative for pulses abnormal General Extremity: edema; Negative for pulses abnormal Neuro oriented x3, CN's II-XII intact bilaterally and no sensory deficits noted Sensorium / Orientation: awake and alert Skin no rashes or lesions noted and no wounds General Skin Exam: pallor; Negative for jaundice MDM MDM MDM Narrative Medical decision making narrative: Differential diagnosis includes angina, non-ST elevation IN, noncardiac pain. Patient did not receive aspirin because she has a red dye allergy. She states she is compliant with her Plavix. Will obtain EKG to see if there are any evidence of acute ischemia. CBC to rule out anemia. Electrolyte panel and troponin with 2-hour troponin. Patient had a stress test performed December [address] Le as abnormal with evidence of reversible myocardial ischemia in the LAD distribution. Also noted a hyperdynamic left ventricle. Patient did experiencepain with Lexiscan. Patient underwent cardiac catheterization by Dr. Ashton. Cardiac catheterization revealed angiographically normal left main. The left anterior descending revealed a previously placed stent with a stent in the firstdiagonal vessel with an ostium being about 70% stenosed. There was minimal luminal irregularity of the right coronary artery. Patient's first troponin and 8 and second is 9 with a delta of 1. Both troponins and delta are normal. Because of the abnormal stress test results andabnormal cardiac catheterization results Dr. Yun who is on-call for Dr. Wade Ferguson was paged. He stated since patient's troponins were both normal anddelta is normal that patient is safe to go home. She is to call office for follow-up this coming week. History & Record Review Discussion w/independent historian: Patient Additional record(s) reviewed:: Prior inpatient record, Prior outpatient record,Prior ED visit and Prior labs Lab Data Attestation: I reviewed the patient's lab results. Lab results narrative: White count is slightly elevated with slight shift. There is no bandemia. Electrolyte panel reveals an elevated CO2. GFR is 53 with slight elevation of creatinine of 1.09. First troponin is normal, 8. Labs: Laboratory Results - last 24 hr 03/18/23 03/18/23 03/19/23 21:47 21:53 00:15 WBC 13.7 H RBC 4.30 Hgb 12.6 Hct 38.7 MCV 90.0 MCH 29.3 MCHC 32.6 RDW Std Deviation 39.2 RDW Coeff of Malcom 12.0 Plt Count 301 MPV 11.0 Immature Gran % (Auto) 0.700 Neut % (Auto) 79.7 H Lymph % (Auto) 11.1 L Cooke % (Auto) 6.5 Eos % (Auto) 1.3 Baso % (Auto) 0.7 Absolute Neuts (auto) 11.0 H Absolute Lymphs (auto) 1.53 Nucleated RBC % 0 Sodium 132 L Potassium 4.1 Chloride 94 L Carbon Dioxide 33.0 H Anion Gap 5 BUN 18 Creatinine 1.09 H Estim Creat Clear Calc 37.44 Est GFR (MDRD) Af Amer 64 Est GFR (MDRD) Non-Af 53 L BUN/Creatinine Ratio 16.5 Glucose 125 H Calcium 10.3 H Troponin I High Sens 8 9 POC Glucose 131 H Radiography Chest X-Ray - ED: 1 View and Read by ED Physician (Portable single view chest x- ray reveals no acute pathology. Cardiac silhouette size unremarkable. Lung parenchyma is unremarkable. There is slight rotation of the film. Osseous structures appear normal.) Diagnostic Testing: Clinical Impression(s) from Imaging Studies Chest X-Ray 03/18/23 21:33 IMPRESSION: No radiographic evidence of acute cardiopulmonary disease. Electronically Signed: Vaughn Santizo MD at 21:47 EDT , Discharge Plan Triage Chief Complaint: Chest Pain ED Provider: Pasha Thornton Dx/Rx/DC Orders Clinical Impression: Angina at rest, Generalized anxiety disorder, Type 2 diabetes mellitus, HLD (hyperlipidemia) Instructions: ED Angina, Stable Prescriptions: No Action (DME) Handicap Placard See Rx Instructions .ROUTE .MEDSUPPLY Qty: 1 0RF Rx Instructions: As directed, length of time 3 years citalopram 40 mg tablet 40 mg PO QHS Qty: 90 3RF (DME) cane Device See Rx Instructions .Route Qty: 1 0RF Rx Instructions: As directed insulin glargine [Basaglar KwikPen U-100 Insulin] 100 unit/mL (3 mL) insulin pen 36 unit subcut DAILY Rx Instructions: daily at bedtime acetaminophen 500 MG tablet 500 mg PO QHS Rx Instructions: over the counter. no prescription required. isosorbide mononitrate 60 mg tablet extended release 24 hr 60 mg PO DAILY Qty: 90 3RF nitroglycerin 0.4 mg tablet, sublingual 0.4 mg SUBLINGUAL Q5-15M PRN (Reason: Pain) Qty: 30 0RF atorvastatin 80 mg tablet 80 mg PO QHS clopidogrel 75 mg tablet 75 mg PO DAILY pantoprazole 40 mg tablet,delayed release (DR/EC) 40 mg PO DAILY losartan 25 mg tablet 25 mg PO DAILY furosemide [Lasix] 20 mg tablet 20 mg PO DAILY insulin lispro [Humalog KwikPen Insulin] 100 unit/mL insulin pen 20 unit SC TID Rx Instructions: Hold if glucose less than 130 mg/dl metoprolol tartrate 25 mg tablet 12.5 mg PO BID Rx Instructions: (DME) FreeStyle Tanika 2 [place] Misc See Rx Instructions .ROUTE .MEDSUPPLY Qty: 1 0RF Rx Instructions: As directed bisacodyl [Dulcolax (bisacodyl)] 5 mg tablet,delayed release (DR/EC) 5 mg PO QHS PRN (Reason: constipation) 30 Days Qty: 30 3RF (DME) pen needle, diabetic 32 gauge x 5/32" needle See Rx Instructions .ROUTE .MEDSUPPLY Qty: 50 0RF Rx Instructions: 4x/day (DME) blood-glucose meter [True Metrix Glucose Meter] Misc See Rx Instructions .Route Qty: 1 0RF Rx Instructions: As directed (DME) True Metrix Glucose Test Strip Strip See Rx Instructions .Route Qty: 100 7RF Rx Instructions: tid albuterol sulfate 90 mcg/actuation HFA aerosol inhaler 2 puff INHALATION Q6H PRN (Reason: shortness of breath or wheezing) Qty: 18 3RF ipratropium-albuterol 0.5 mg-3 mg(2.5 mg base)/3 mL solution for nebulization 3 ml INHALATION Q4H PRN PRN (Reason: SOB &/OR WHEEZING) Qty: 180 6RF risperidone 1 mg tablet 1 mg PO QHS Qty: 90 1RF (DME) FreeStyle Tanika 2 Sensor Kit See Rx Instructions .ROUTE .MEDSUPPLY Qty: 2 3RF Rx Instructions: As directed alprazolam 0.25 mg tablet 0.25 mg PO QHS Qty: 30 0RF Primary Care Provider: Billy Madera Referrals: Wade Ferguson MD [Med Staff - Active Staff] - As soon as possible Billy Madera MD [Primary Care Provider] - Disposition Disposition: Home, Self Care What to do if you have Problems For any increased pain, shortness of breath, bleeding, nausea or vomiting, chestpain, or any unexpected problems, contact your Primary Care Provider. Call [facility] ([phone]) or report to the closest Emergency Room. Call 911 if necessary. 03/19/23 0120 <Electronically signed by Pasha Thornton MD> Cosigner Signature (if applicable): CC: Dr. Billy Madera MD ~ Signed ADDENDUM by Dr. Pasha Thornton MD on 03/19/23 at 0129 Normal sinus rhythm rate of 72. The EKG is normal. CO interval is under 60 ms. QRS durations 82 ms. QT durations 394 ms. [place] is normal 03/19/23 0129<Electronically signed by Pasha Thornton MD> Cosigner Signature (if applicable): cc: Dr. Billy Madera MD ~* Signed [facility] Work Phone: [phone] 514-929006-22-[address]aes [facility] January 28, 2023 10:59am Note Date/Time January 28, 2023 10:5 5am [facility] Medical Records Department [address] [place] [address] Discharge Summary 01/28/23 1039 MR#: [id number] Acct: [id number] Name: JEANNA VARGAS Rep #:[id number] : 1950 72 From: Cindi Moraes DO PCP: Dr. Billy Madera MD Status:A DM IN Location: [place] [address] Providers Date of Admission: 01/26/23 Date of Discharge: 01/28/23 Primary Care Physician: Dr. Billy Madera MD Reason For Visit: PNEUMONIA Diagnosis Discharge Diagnosis (1) Community acquired pneumonia: Status: Acute Code(s): J18.9 - Pneumonia, unspecified organism (2) COPD with acute exacerbation: Status: Chronic Code(s): J44.1 - Chronic obstructive pulmonary disease with (acute) exacerbation (3) Shortness of breath: Status: Acute Code(s): R06.02 - Shortness of breath Medications at Discharge Home Medications Handicap Placard #1 ea 12/12/20 flash glucose scanning reader ([employer] Tanika 2 [place]) #1 ea 01/31/21 acetaminophen 500 mg tablet 500 mg PO QHS pain 10/21/21 bisacodyl 5 mg tablet,delayed release (Dulcolax (bisacodyl)) 5 mg PO QHS PRN constipation 30 days #30 tabs 11/13/21 pen needle, diabetic 32 gauge x 5/32" #50 ea 02/11/22 blood sugar diagnostic (True Metrix Glucose Test Strip) #100 ea 09/11/22 blood-glucose meter (True Metrix Glucose Meter) #1 ea 09/11/22 budesonide-formoterol HFA 160 mcg-4.5 mcg/actuation aerosol inhaler (Symbicort) 2 puff inhalation BID Breo too expensive for patient, not covered #10.2 grams 10/15/22 albuterol sulfate 90 mcg/actuation aerosol inhaler 2 puff inhalation Q6H PRN shortness of breath or wheezing #18 grams 11/06/22 ipratropium 0.5 mg-albuterol 3 mg (2.5 mg base)/3 mL nebulization soln 3 ml inhalation Q4H PRN PRN SOB &/OR WHEEZING #180 mL 11/10/22 cane #1 ea 11/16/22 citalopram 40 mg tablet 40 mg PO QHS depression #90 tabs 11/16/22 risperidone 1 mg tablet 1 mg PO QHS anxiety #90 tabs 12/07/22 insulin glargine 100 unit/mL (3 mL) subcutaneous pen (Basaglar KwikPen U-100 Insulin) 40 unit (0.4 mL) subcut DAILY diabetic managment #32.4 mL 12/26/22 isosorbide mononitrate 60 mg tablet,extended release 24 hr 60 mg PO DAILY BP #90tabs 12/26/22 nitroglycerin 0.4 mg sublingual tablet 0.4 mg sublingual Q5-15M PRN Pain #30 tabs 12/26/22 flash glucose sensor ([employer] Tanika 2 Sensor kit) #2 ea 01/06/23 alprazolam 0.25 mg tablet 0.25 mg PO QHS anxiety 01/26/23 atorvastatin 80 mg tablet 80 mg PO QHS cholesterol 01/26/23 clopidogrel 75 mg tablet 75 mg PO DAILY blood thinner 01/26/23 furosemide 20 mg tablet (Lasix) 20 mg PO DAILY diuretic 01/26/23 insulin lispro 100 unit/mL subcutaneous pen (Humalog KwikPen (U-100) Insulin) 20unit subcut TID diabetes 01/26/23 losartan 25 mg tablet 25 mg PO DAILY blood pressure 01/26/23 metoprolol tartrate 25 mg tablet 12.5 mg PO BID blood pressure 01/26/23 pantoprazole 40 mg tablet,delayed release 40 mg PO DAILY stomach 01/26/23 cephalexin 500 mg capsule 500 mg PO TID #15 caps 01/28/23 prednisone 20 mg tablet 40 mg PO DAILY #10 tabs 01/28/23 Hospital Course Summary of Care Provided Minutes Spent on Discharge: 36 Hospital Course: Mrs. Vargas is a 72-year-old female who has COPD and overlap syndrome on chronic oxygen at 4-5 L nasal cannula who presented to the emergency department at [facility] on 01/26/2023 with worsening shortness of breath.? Thepatient was seen at the [facility] clinic last , 01/22/2023 and complained of cough and congestion.? She was diagnosed with pneumonia and discharged on cefdinir and azithromycin.? Patient indicated she completed the course of azithromycin on the day of presentation however she was not able to take the cefdinir because it made her too nauseated.? She did not call for an alternativemedication.? She reported no significant improvement in her breathing and actually felt more short of breath and that her presentation.? She was using herhome nebulizers more frequently than normal.? She has not had a fever but did indicate she was coughing up yellow- colored sputum which is a change for her.? She also reported decreased appetite but in the emergency department reported feeling very hungry.? She denied any wheezing.? She was admitted to the medical floor and treated for acute exacerbation of COPD along with antibiotics for pneumonia given her sputum change and her history of COPD.? She did not requiring any oxygen above her baseline throughout the entire admission and current oxygen saturation is 99% on 4 L nasal cannula.? The patient was placed on ceftriaxone, IV steroids, and aggressive pulmonary toilet. She was feeling much better by 01/28/2023 and wanted to go home. She did not want to try taking her cefdinir at home in conjunction with antiemetics and wanted a new antibiotictherefore we prescribed Keflex for another 5 days. I am not totally convinced she actually has a pneumonia. We are not able to obtain a sputum sample and appears infiltrate was there previously, however, with her change in sputum production and her history of severe severe COPD we will go ahead and complete treatment. She was discharged on Keflex for another 5 days of antibiotics. We will also discharged on a burst of prednisone as she does not tolerate long courses of prednisone well. She will receive 40 mg daily for 5 days. We did discuss that her blood sugars would be elevated and she voiced understanding andstated she knew this from previous experience. She was discharged home in stable condition on 01/28/2023. She has an upcoming pulmonary medicine appointment in February. I encouraged her to keep this and to follow-up with her primary care physician within the next month as needed. Patient does have significant anxiety at baseline and I feel that this significantly contributes to her shortness of breath and respiratory issues overall. Discharge diagnoses: Shortness of breath Acute exacerbation COPD DM-2 GERD CAD Hypertension Hyperlipidemia HFpEF-compensated Chronic hypoxic respiratory failure MARK Morbid obesity Anxiety Depression Physical Exam Const alert, oriented x3, no apparent distress and well nourished Constitutional Narrative: Morbidly obese, elderly white female, lying in bed in side-lying, sleeping but awakens to voice, appears older than stated age, appears comfortable and nontoxic General Appearance: cooperative, comfortable, well kempt and well developed Orientation / Consciousness: awake, oriented to person, oriented to place and oriented to time Exam Limitations: no limitations Nutritional Appearance: morbidly obese HEENT normocephalic, head/scalp atraumatic, hearing grossly normal bilaterally and moist oral mucous membranes HEENT Narrative: Mallampati is 3, no thrush Eyes PERRL, EOMs intact bilaterally and conjunctivae normal Eyes Narrative: No scleral icterus Neck no lymphadenopathy and supple Neck Narrative: Trachea midline, no thyroid enlargement Resp normal respiratory effort, no retractions and no use of accessory muscles Resp Narrative: Few scattered end expiratory wheezes Auscultation: wheezes; Negative for rales or rhonchi Cardio regular rate, regular rhythm, S1 normal heart sound, S2 normal heart sound, no murmurs, no rub, no gallops and no clicks GI normal to inspection, nondistended, normoactive bowel sounds, soft to palpation and non-tender Extremity no clubbing, cyanosis or edema Extremity Narrative: Pedal pulses are 2+, onychomycosis bilateral lower extremities Skin no rashes or lesions noted, no wounds, skin turgor normal and no jaundice Neuro oriented x3, CN's II-XII intact bilaterally, moves all extremities and no focal motor deficits Neuro Narrative: Very minimal generalized weakness with proximal musculature being weaker than distal Speech: speech normal Psych affect normal Psych Narrative: Patient must less anxious today, eye contact is good and interaction is appropriate Weight / BMI Weight Weight: 100.3 kg Body Mass Index (BMI) 40.4 ABG / Lab / Microbiology Data Result Diagrams: 01/28/23 05:44 01/28/23 05:44 Laboratory: Laboratory Results - last 24 hr 01/27/23 11:28: POC Glucose 486 H* 01/27/23 12:51: POC Glucose 418 H 01/27/23 13:57: POC Glucose 415 H 01/27/23 16:45: POC Glucose 369 H 01/27/23 22:53: POC Glucose 361 H 01/28/23 05:44: WBC 14.8 H, RBC 3.97 L, Hgb 11.8 L, Hct 36.0 L, MCV 90.7, MCH 29.7, MCHC 32.8, RDW Std Deviation 39.8, RDW Coeff of Malcom 12.1, Plt Count 320, MPV 11.3, Immature Gran % (Auto) 1.500 H, Neut % (Auto) 83.8 H, Lymph % (Auto) 8.3 L, [place]oke % (Auto) 6.1, Eos % (Auto) 0.1, Baso % (Auto) 0.2, Absolute Neuts (auto) 12.4 H, Absolute Lymphs (auto) 1.22, Nucleated RBC % 0 01/28/23 05:44: Sodium 137, Potassium 3.9, Chloride 102, Carbon Dioxide 28.0, Anion Gap 7, BUN 17, Creatinine 0.84, Estim Creat Clear Calc 48.58, Est GFR (MDRD) Af Amer 85, Est GFR (MDRD) Non-Af 70, BUN/Creatinine Ratio 20.1 H, Glucose 257 H, Calcium 9.4 01/28/23 07:52: POC Glucose 243 H D/C Instructions Discharge Diet: Low fat / Low cholesterol and 1800 Calorie Control Diet Discharge Activity: Return to Normal Activity Meaningful Use Info Meaningful Use Diagnoses (Choose all that apply): None applicable Discharge Plan Admission Admit Date/Time: 01/26/23 21:10 Primary Reason for Your Visit: Shortness of breath Attending Provider: Cindi Moraes Primary Care Provider: Billy Madera Consulting Providers: Yuan Singh Discharge Orders/Prescriptions Prescriptions: New cephalexin 500 mg capsule 500 mg PO TID Qty: 15 0RF prednisone 20 mg tablet 40 mg PO DAILY Qty: 10 0RF Continued (DME) Handicap Placard See Rx Instructions .ROUTE .MEDSUPPLY Qty: 1 0RF Rx Instructions: As directed, length of time 3 years citalopram 40 mg tablet 40 mg PO QHS Qty: 90 3RF (DME) cane Device See Rx Instructions .Route Qty: 1 0RF Rx Instructions: As directed acetaminophen 500 MG tablet 500 mg PO QHS Rx Instructions: over the counter. no prescription required. insulin glargine [Basaglar KwikPen U-100 Insulin] 100 unit/mL (3 mL) insulin pen 40 unit subcut DAILY Qty: 32.4 1RF Rx Instructions: daily at bedtime isosorbide mononitrate 60 mg tablet extended release 24 hr 60 mg PO DAILY Qty: 90 3RF nitroglycerin 0.4 mg tablet, sublingual 0.4 mg SUBLINGUAL Q5-15M PRN (Reason: Pain) Qty: 30 0RF atorvastatin 80 mg tablet 80 mg PO QHS clopidogrel 75 mg tablet 75 mg PO DAILY alprazolam 0.25 mg tablet 0.25 mg PO QHS pantoprazole 40 mg tablet,delayed release (DR/EC) 40 mg PO DAILY losartan 25 mg tablet 25 mg PO DAILY furosemide [Lasix] 20 mg tablet 20 mg PO DAILY insulin lispro [Humalog KwikPen Insulin] 100 unit/mL insulin pen 20 unit SC TID Rx Instructions: Hold if glucose less than 130 mg/dl metoprolol tartrate 25 mg tablet 12.5 mg PO BID Rx Instructions: (DME) FreeStyle Tanika [address] [place] [facility] [place] See Rx Instructions .ROUTE .MEDSUPPLY Qty: 1 0RF Rx Instructions: As directed bisacodyl [Dulcolax (bisacodyl)] 5 mg tablet,delayed release (DR/EC) 5 mg PO QHS PRN (Reason: constipation) 30 Days Qty: 30 3RF (DME) pen needle, diabetic 32 gauge x 5/32" needle See Rx Instructions .ROUTE .MEDSUPPLY Qty: 50 0RF Rx Instructions: 4x/day (DME) blood-glucose meter [True Metrix Glucose Meter] Misc See Rx Instructions .Route Qty: 1 0RF Rx Instructions: As directed (DME) True Metrix Glucose Test Strip Strip See Rx Instructions .Route Qty: 100 7RF Rx Instructions: tid budesonide-formoterol [Symbicort] 160-4.5 mcg/actuation HFA aerosol inhaler 2 puff inhalation BID Qty: 10.2 0RF albuterol sulfate 90 mcg/actuation HFA aerosol inhaler 2 puff INHALATION Q6H PRN (Reason: shortness of breath or wheezing) Qty: 18 3RF ipratropium-albuterol 0.5 mg-3 mg(2.5 mg base)/3 mL solution for nebulization 3 ml INHALATION Q4H PRN PRN (Reason: SOB &/OR WHEEZING) Qty: 180 6RF risperidone 1 mg tablet 1 mg PO QHS Qty: 90 1RF (DME) FreeStyle Tanika 2 Sensor Kit See Rx Instructions .ROUTE .MEDSUPPLY Qty: 2 3RF Rx Instructions: As directed Referrals / Follow Up: Haroon Nuno MD [Med Staff - Active Staff] - See Referral Note (As scheduled for February) Billy Madera MD [Primary Care Provider] - Within 1 Month Disposition Disposition (needs filled in before D/C Order can be placed): Home, Self Care Charges/Coding Visit Charges Inpatient E&M: 90328 Disch Hosp >30min 01/28/23 1059 <Electronically signed by Cindi Moraes DO> Cosigner Signature (if applicable): CC: Dr. Haroon Nuno MD; Dr. Billy Madera MD; Dr. Cindi Moraes DO~ Signed [facility] Work Phone: 1(780) 558-164906-21-[address]aes [facility] January 27, 2023 11:55am Note Date/Time January 27, 2023 7:34 am [facility] Medical Records Department [address] [place] [address] Progress Note - Hospitalist 01/27/23 0730 MR#: [id number] Acct: [id number] Name: JEANNA VARGAS Rep #:[id number] : 1950 72 From: Cindi Moraes DO PCP: Dr. Billy Madera MD Status:A DM IN Location: MS3 SN135-8 Reason for Visit Reason for Visit: Shortness of breath Subjective Subjective Mrs. Vargas is a 72-year-old female who has COPD and overlap syndrome on chronic oxygen at 5 L nasal cannula who presented to the emergency department at [facility] on 01/26/2023 with worsening shortness of breath. [facility] , [facility]/2023 and complained of cough and congestion. She was diagnosed with pneumonia and discharged on cefdinir and azithromycin. Patient indicated she completed the course of azithromycin on theday of presentation however she was not able to take the cefdinir because it made her too nauseated. She did not call for an alternative medication. She reported no significant improvement in her breathing and actually felt more short of breath and that her presentation. She was using her home nebulizers more frequently than normal. She not had a fever but did indicate she was coughing up yellow-colored sputum which is a change for her. She also reported decreased appetite but in the emergency department reported feeling very hungry. She denied any wheezing. She was admitted to the medical floor and treated foracute exacerbation of COPD along with antibiotics for pneumonia given her sputumchange and her history of COPD. She is not requiring any oxygen above her baseline and current oxygen saturation is 99% on her 4 L nasal cannula. It is actually documented in her last pulmonary note from October of this year that she is on 5 L continuously. She had no white count on presentation however she did have a left shift with a 74.8% neutrophilia. Patient is currently complaining of a headache and some left ear pain. States her breathing is overall better. Seems to have some significant anxiety issues. On her baseline oxygen at 4 L with oxygen saturations anywhere from 98 to 99%. Discussed utilization of prednisone. Patient states she does not want to take oral prednisone and can only tolerate IV Solu-Medrol. We will transition back but I did discuss with her we would be unable to discharge her on steroids she voiced understanding. Objective Data Objective Data Vital Signs: Vital Signs Temp Pulse Resp BP Pulse Ox O2 Del Method O2 Flow Rate 98.0 F 84 22 H 138/49 H 99 Nasal Cannula 4 01/27/23 05:00 01/27/23 05:00 01/27/23 05:00 01/27/23 05:00 01/27/23 05:00 01/27/23 05:00 01/27/23 05:00 Oxygen Flow Rate (L/min) 4 Oxygen Delivery Method Nasal Cannula Weight: 100.3 kg Body Mass Index (BMI) 40.4 Intake & Output: Intake and Output for Last 24 Hours 01/25/23 01/26/23 01/27/23 23:59 23:59 23:59 Intake Total 50 / 50 Balance 50 / 50 Lab / Micro Data Result Diagrams: 01/27/23 06:25 01/27/23 06:25 Labs: Laboratory Results - last 24 hr 01/26/23 19:50: WBC 10.7, RBC 4.02 L, Hgb 11.8 L, Hct 36.2 L, MCV 90.0, MCH 29.4, MCHC 32.6, RDW Std Deviation 39.8, RDW Coeff of Malcom 12.2, Plt Count 284, MPV 10.7, Immature Gran % (Auto) 0.700, Neut % (Auto) 74.8 H, Lymph % (Auto) 16.3 L, Cooke % (Auto) 5.8, Eos % (Auto) 1.4, Baso % (Auto) 1.0, Absolute Neuts (auto) 8.0 H, Absolute Lymphs (auto) 1.75, Nucleated RBC % 0 01/26/23 19:50: Sodium 130 L, Potassium 3.7, Chloride 94 L, Carbon Dioxide 28.0,Anion Gap 8, BUN 10, Creatinine 0.90, Estim Creat Clear Calc 45.35, Est GFR (MDRD) Af Amer 79, Est GFR (MDRD) Non-Af 65, BUN/Creatinine Ratio 11.1, Glucose 261 H, Calcium 9.2, Troponin I High Sens 7 01/26/23 19:50: B-Natriuretic Peptide 25.7 01/26/23 22:26: POC Glucose 237 H 01/27/23 06:25: WBC 13.9 H, RBC 4.42, Hgb 13.0, Hct 39.9, MCV 90.3, MCH 29.4, MCHC 32.6, RDW Std Deviation 39.4, RDW Coeff of Malcom 12.0, Plt Count 358, MPV 10.6, Immature Gran % (Auto) 0.900, Neut % (Auto) 91.8 H, Lymph % (Auto) 6.1 L, Cooke % (Auto) 0.8, Eos % (Auto) 0.0, Baso % (Auto) 0.4, Absolute Neuts (auto) 12.7 H, Absolute Lymphs (auto) 0.84, Nucleated RBC % 0 01/27/23 06:25: Sodium 133 L, Potassium 4.3, Chloride 97 L, Carbon Dioxide 29.0,Anion Gap 7, BUN 11, Creatinine 1.08 H, Estim Creat Clear Calc 37.79, Est GFR (MDRD) Af Amer 64, Est GFR (MDRD) Non-Af 53 L, BUN/Creatinine Ratio 10.2, Glucose 379 H, Calcium 9.5 Radiography Diagnostic Testing: Radiology Impression Chest X-Ray 01/26/23 20:25 IMPRESSION: There is a left pleural effusion vs prominent pleural fat. Left lower lobe infiltrate. Electronically Signed: Andrew Wheeler MD at 20:49 EDT Reading Location ID and State: [facility] / [place] , Service support , Physical Exam Const alert, oriented x3, no apparent distress and well nourished Constitutional Narrative: Morbidly obese, elderly white female, sitting up on the edge of the bed, appearsolder than stated age, nontoxic, intermittent quick shallow breathing that appears to be related to anxiety without signs of respiratory distress otherwise, appears comfortable at this time HEENT head/scalp atraumatic and moist oral mucous membranes HEENT Narrative: Patient is edentulous, Mallampati is 3, no thrush Head and Scalp: normocephalic Resp normal respiratory effort, no retractions and no use of accessory muscles Resp Narrative: Few scattered end expiratory wheezes Auscultation: wheezes; Negative for rales or rhonchi Cardio regular rate, regular rhythm, S1 normal heart sound, S2 normal heart sound, no murmurs, no rub, no gallops and no clicks GI normal to inspection, nondistended, normoactive bowel sounds, soft to palpation and non-tender Extremity no clubbing, cyanosis or edema Extremity Narrative: Pedal pulses are 2+, onychomycosis bilateral lower extremities Neuro oriented x3, moves all extremities and no focal motor deficits Speech: speech normal Psych Mood & Affect: anxious Assessment & Plan Assessment/Plan (1) Community acquired pneumonia: (2) COPD with acute exacerbation: (3) Shortness of breath: PLAN: Plan Shortness of breath due to acute exacerbation of COPD/possible community- acquired pneumonia -Patient is on her baseline oxygen with oxygen saturations of 99% -Was admitted due to outpatient intolerance of oral antibiotics -Patient does not tolerate oral steroids and will leave on Solu-Medrol while hospitalized -Continue antibiotics with ceftriaxone and complete 7-day course given sputum change--> should be able to discharge on Keflex -Continue pulmonary toilet -No need to check strep pneumo and Legionella antigens as she does not have any severe pneumonia symptoms at this time -Blood cultures are ordered and pending however I do suspect yield will be low -Anticipate discharge tomorrow as long as patient remains stable on her baselineoxygen DM-2 -Patient hyperglycemic this morning but her basal insulin was not ordered -Start basal insulin 40 units -Continue lispro 3 times a day but increase from 14 units at home dose of 20 units 3 times daily -Continue sliding scale -Suspect that blood sugars will be elevated with steroid use -Accu-Cheks as ordered -Carb controlled diet -Continued outpatient endocrinology follow-up GERD -Continue PPI CAD/HTN/HPL/HFpEF -Continue atorvastatin -Continue Lasix -Continue isosorbide mononitrate -Continue losartan -Continue metoprolol -Continue Plavix -Recent cardiac catheterization on 12/25/2022 that showed patent stents in the mid LAD and first diagonal with ostial stenosis of the diagonal vessel that was unchanged compared to previous cardiac catheterization and ongoing medical therapy was ended Chronic hypoxic respiratory failure -Patient is on 4 L to 5 L at baseline -Patient is currently on 4 L with oxygen saturations at 99% -Restart home inhalers at discharge -Pulmonary toilet as noted above -Recommended continued outpatient follow-up with pulmonary medicine--> Per previous documentation patient should have an upcoming appointment with Dr. Yaakov FLORES -Continue BiPAP therapy at night Morbid obesity -BMI 40.4 -Recommend weight loss -complicates treatment, prognosis, outcomes Anxiety/depression -Continue citalopram -Continue nightly Xanax -Continue risperidone DVT prophylaxis -Continue enoxaparin but increase to 40 twice daily with BMI being greater than 40 CODE STATUS -Full code Charges/Coding Visit Charges Inpatient E&M: 23896 Subs Hosp L2 01/27/23 1155 <Electronically signed by Cindi Moraes DO> Cosigner Signature (if applicable): CC: ~ Signed [facility] Work Phone: 1(946) 386-750506-21-2023 History and physical note Author Dr. Singh [facility] January 26, 2023 10:53pm Note Date/Time January 26, 2023 9:24 pm [facility] Medical Records Department [address] [place] [address] H&P Exam - Hospitalist 01/26/232123 MR#: [id number] Acct: [id number] Name: JEANNA VARGAS Rep #:[id number] : 1950 72 From: Yuan Singh MD PCP: Dr. Billy Madera MD Status:A DM IN Location: [facility] [place] HV263-3 HPI - General General Date of Admission: 01/26/23 Date of Service: 01/26/23 Chief Complaint: sob HPI Narrative JEANNA VARGAS, is a 72 F with a significant history of COPD, asthma, hypertension,and diabetes mellitus who presents to the emergency department with 1 week history of worsening shortness of breath. Of note on 01/22/2023 [facility] and was diagnosed with pneumonia and was prescribed azithromycin and cefdinir. Patient completed the last dose of azithromycin on the same day of this current presentation. In regards to the prescribed cefdinir see took only 2 doses; and because it made her very nauseous she stopped taking it. She reports a productive cough of yellow sputum which is thicker than her baseline. She denies wheezing. She has been using inhalers at home multiple times withoutany relief. During the course of her illness her symptoms actually got transiently better. However on the day of presentation because she got worse shecalled the paramedics and was brought to the emergency department. She denies fever or chills. She reports anorexia. Although at the emergency department she reported being very hungry. [facility] Medical History Anemia Anxiety and depression Asthma with COPD Atherosclerotic heart disease of [place] coronary artery without angina pectoris Back pain Chest pain Chronic back pain Chronic respiratory failure COPD (chronic obstructive pulmonary disease) Diastolic CHF Former smoker Hepatitis HLD (hyperlipidemia) Hypertension Morbid obesity MARK treated with BiPAP Psoriasis Smoking greater than 40 pack years Thyroid nodule Type 2 diabetes mellitus Home Medications Handicap Placard #1 ea 12/12/20 [Rx Last Taken Unknown] flash glucose scanning reader ([employer] Tanika [address] [place]) #1 ea 01/31/21 [Rx Last Taken Unknown] acetaminophen 500 mg tablet 500 mg PO QHS 10/21/21 [History Last Taken Unknown] bisacodyl 5 mg tablet,delayed release (Dulcolax (bisacodyl)) 5 mg PO QHS PRN constipation 30 days #30 tabs 11/13/21 [Rx Last Taken Unknown] pen needle, diabetic 32 gauge x " #50 ea 02/11/22 [Rx Last Taken Unknown] blood sugar diagnostic (True Metrix Glucose Test Strip) #100 ea 09/11/22 [Rx Last Taken Unknown] blood-glucose meter (True Metrix Glucose Meter) #1 ea 09/11/22 [Rx Last Taken Unknown] budesonide-formoterol HFA 160 mcg-4.5 mcg/actuation aerosol inhaler (Symbicort) 2 puff inhalation BID Breo too expensive for patient, not covered #10.2 grams 10/15/22 [Rx Last Taken Unknown] albuterol sulfate 90 mcg/actuation aerosol inhaler 2 puff inhalation Q6H PRN shortness of breath or wheezing #18 grams 11/06/22 [Rx Last Taken Unknown] ipratropium 0.5 mg-albuterol 3 mg (2.5 mg base)/3 mL nebulization soln 3 ml inhalation Q4H PRN PRN SOB &/OR WHEEZING #180 mL 11/10/22 [Rx Last Taken Unknown] cane #1 ea 11/16/22 [Rx Last Taken Unknown] citalopram 40 mg tablet 40 mg PO QHS depression #90 tabs 11/16/22 [Rx Last Taken Unknown] risperidone 1 mg tablet 1 mg PO QHS anxiety #90 tabs 12/07/22 [Rx Last Taken Unknown] insulin glargine 100 unit/mL (3 mL) subcutaneous pen (Basaglar KwikPen U-100 Insulin) 40 unit (0.4 mL) subcut DAILY diabetic managment #32.4 mL 12/26/22 [Rx Last Taken Unknown] isosorbide mononitrate 60 mg tablet,extended release 24 hr 60 mg PO DAILY BP #90tabs 12/26/22 [Rx Last Taken Unknown] nitroglycerin 0.4 mg sublingual tablet 0.4 mg sublingual Q5-15M PRN Pain #30 tabs 12/26/22 [Rx Last Taken Unknown] flash glucose sensor (FreeStyle Tanika 2 Sensor kit) #2 ea 01/06/23 [Rx Last Taken Unknown] alprazolam 0.25 mg tablet 0.25 mg PO QHS anxiety 01/26/23 [History Last Taken Unknown] atorvastatin 80 mg tablet 80 mg PO QHS cholesterol 01/26/23 [History Last Taken Unknown] clopidogrel 75 mg tablet 75 mg PO DAILY blood thinner 01/26/23 [History Last Taken Unknown] furosemide 20 mg tablet (Lasix) 20 mg PO DAILY diuretic 01/26/23 [History Last Taken Unknown] insulin lispro 100 unit/mL subcutaneous pen (Humalog KwikPen (U-100) Insulin) 20unit subcut TID diabetes 01/26/23 [History Last Taken Unknown] losartan 25 mg tablet 25 mg PO DAILY blood pressure 01/26/23 [History Last Taken Unknown] metoprolol tartrate 25 mg tablet 12.5 mg PO BID blood pressure 01/26/23 [History Last Taken Unknown] pantoprazole 40 mg tablet,delayed release 40 mg PO DAILY stomach 01/26/23 [History Last Taken Unknown] Allergy/AdvReac Type Severity Reaction Status Date / Time amoxicillin [Amoxicillin] Allergy Intermediate Rash Verified 01/26/23 19:46 hydrocodone Allergy Intermediate SWELLING Verified 01/26/23 19:46 gabapentin [From Neurontin] Allergy Shortness Verified 01/26/23 19:46 of breath levofloxacin [From Levaquin] Allergy Hives Verified 01/26/23 19:46 pseudoephedrine HCl Allergy Shortness Verified 01/26/23 19:46 [From Sudafed] of breath red dye Allergy Hives Verified 01/26/23 19:46 prednisone AdvReac Severe mean mood Verified 01/26/23 19:46 codeine AdvReac HEADACHE Verified 01/26/23 19:46 Family History Brother Heart disease Mother Colon cancer Heart disease Surgical History History of cholecystectomy History of left heart catheterization (LHC) (~09/23/20) Stented coronary artery (12/28/18) Social History Smoking Status: Former smoker pack-years: 40 how long ago did patient quit smokin year ago alcohol intake: never substance use type: does not use caffeine: Yes Type: carbonated beverages and tea what type of physical activity do you participate in: none ROS ROS Narrative Pertinent positives and pertinent negatives as noted in HPI. All other systems were reviewed and are negative Vital Signs Vital Signs Vital Signs: 01/26/23 19:38 01/26/23 20:08 01/26/23 21:00 Temperature 97.9 F Temperature Source Temporal Pulse Rate 71 67 Respiratory Rate 22 H 30 H Respiratory Effort Short of Breath Respiratory Depth Normal Respiratory Pattern Tachypnea Tachypnea Blood Pressure 160/88 H Blood Pressure Mean 112 Pulse Ox 100 Oxygen Delivery Method Nasal Cannula Nasal Cannula Oxygen Flow Rate (L/min) 4 4 01/26/23 21:00 Temperature Temperature Source Pulse Rate Respiratory Rate Respiratory Effort Respiratory Depth Respiratory Pattern Blood Pressure Blood Pressure Mean Pulse Ox 99 Oxygen Delivery Method Nasal Cannula Oxygen Flow Rate (L/min) 4 Weight Weight: 103.5 kg Body Mass Index (BMI) 41.7 Physical Exam Narrative Physical exam: General: Well-nourished, well-developed. Head: Normocephalic, atraumatic, no tenderness Eyes: Vision is grossly intact. EOMI ENT, no trauma, moist mucous membranes, no rhinorrhea Neck: Nontender, No thyromegaly. CVS: Regular rate and rhythm. S1-S2 present. No murmur, gallop or rub. Respiratory : Tachypnea, diminished. Abdomen: Soft, nontender, nondistended, normal bowel sounds, no masses : Deferred Back: Nontender, no CVA tenderness. Extremities: Nontender full range of motion, no trauma Skin: Normal color, no trauma, abrasions Neuro: Alert, oriented, cranial nerves II through XII grossly intact. Psychiatry: Anxious. Results Lab / Micro Data Result Diagrams: 01/26/23 19:50 01/26/23 19:50 Labs: Laboratory Results - last 24 hr 01/26/23 19:50: WBC 10.7, RBC 4.02 L, Hgb 11.8 L, Hct 36.2 L, MCV 90.0, MCH 29.4, MCHC 32.6, RDW Std Deviation 39.8, RDW Coeff of Malcom 12.2, Plt Count 284, MPV 10.7, Immature Gran % (Auto) 0.700, Neut % (Auto) 74.8 H, Lymph % (Auto) 16.3 L, Cooke % (Auto) 5.8, Eos % (Auto) 1.4, Baso % (Auto) 1.0, Absolute Neuts (auto) 8.0 H, Absolute Lymphs (auto) 1.75, Nucleated RBC % 0 01/26/23 19:50: Sodium 130 L, Potassium 3.7, Chloride 94 L, Carbon Dioxide 28.0,Anion Gap 8, BUN 10, Creatinine 0.90, Estim Creat Clear Calc 45.35, Est GFR (MDRD) Af Amer 79, Est GFR (MDRD) Non-Af 65, BUN/Creatinine Ratio 11.1, Glucose 261 H, Calcium 9.2, Troponin I High Sens 7 01/26/23 19:50: B-Natriuretic Peptide 25.7 Radiology Impression Chest X-Ray 01/26/23 20:25 IMPRESSION: There is a left pleural effusion vs prominent pleural fat. Left lower lobe infiltrate. Electronically Signed: Andrew Wheeler MD at 20:49 EDT Reading Location ID and State: [facility] / [place] , Service support , Assessment & Plan Assessment/Plan (1) Pneumonia: (2) Obesity: PLAN: Plan Pneumonia with Possible COPD/asthma exacerbation Blood culture ?2 is pending; ordered for the ED; follow. Impression of chest x-ray by radiology:There is a left pleural effusion vs prominent pleural fat. Left lower lobe infiltrate. Chest x-ray was independently interpreted. There is opacity at the left lower base. Review of records show that patient has had this left lower opacities fora long time. Recently completed azithromycin therapy. Started on ceftriaxone at the emergency department and continued. ED at the left lower base Respiratory Gram stain and culture pending DuoNeb scheduled. Albuterol as needed Legionella antigen screen and Strep antigen ordered Allergic to prednisone but no Solu-Medrol. Solu-Medrol IV ordered. Of note patient received Solu-Medrol 125 mg in the emergency department. On baseline home oxygen patient's saturation was 100%. Oxygen supplementation continued. Declined cough medicine. White count of 10,700. No left shift. Monitor BMP and CBC Hypertension Blood pressure is not within goal Home blood pressure medication continued. As needed hydralazine ordered. Trend blood pressure and adjust blood pressure medications. Diabetes mellitus Patient with hyperglycemia on presentation Home prandial insulin de-escalated. Monitor Accu-Cheks Correction scale insulin ordered. Anxiety disorder Persistent As needed Xanax continued Morbid Obesity: BMI:40.4 kg/m?. Complicates care. Lifestyle modification recommended. DVT prophylaxis Subcutaneous Lovenox ordered. Charges/Coding Visit Charges Inpatient E&M: 11983 Init Hosp 01/26/23 7279 <Electronically signed by Yuan Singh MD> Cosigner Signature (if applicable): CC: Dr. Billy Madera MD; Dr. Yuan Singh MD~ Signed [facility] Work Phone: 1(995) 691-568106-20-[address] [facility] January 26, 2023 9:50pm Note Date/Time January 26, 2023 7:[address] [facility] Medical Records Department [address] [place] [address] Emergency Department Summary 01/26/23 MR#: [id number] Acct: [id number] Name: JEANNA VARGAS Rep #:[id number] : 1950 72 From: Mariah Miller MD PCP: Dr. Billy Madera MD Status:A DM IN Location: [facility] [place] RB508-4 HPI History of Present Illness Chief Complaint: Shortness of Breath Informant: patient Onset/Context/Timing Onset: Days Context: Gradual Onset Narrative Narrative: Patient presents secondary to pneumonia. She was seen at the [facility] clinic last with a 4 to 5-day history of cough and congestion. She was diagnosed with a pneumonia and discharged on cefdinir and azithromycin. Patient states she took her last dose of azithromycin today. She states she was not able to take the cefdinir because it made her too nauseated. She reports no significantimprovement in her breathing and today actually felt more short of breath. She does have a history of COPD and asthma along with CHF. She does report that shehas been using her breathing treatments more frequently than normal. She has not noted a fever. She is coughing up yellow- colored sputum. [facility] Medical History Anemia Anxiety and depression Asthma with COPD Atherosclerotic heart disease of [place] coronary artery without angina pectoris Back pain Chest pain Chronic back pain Chronic respiratory failure COPD (chronic obstructive pulmonary disease) Diastolic CHF Former smoker Hepatitis HLD (hyperlipidemia) Hypertension Morbid obesity MARK treated with BiPAP Psoriasis Smoking greater than 40 pack years Thyroid nodule Type 2 diabetes mellitus Home Medications Handicap Placard #1 ea 12/12/20 [Rx Last Taken Unknown] flash glucose scanning reader ([employer] Tanika [address] [place]) #1 ea 01/31/21 [Rx Last Taken Unknown] acetaminophen 500 mg tablet 500 mg PO QHS 10/21/21 [History Last Taken Unknown] bisacodyl 5 mg tablet,delayed release (Dulcolax (bisacodyl)) 5 mg PO QHS PRN constipation 30 days #30 tabs 11/13/21 [Rx Last Taken Unknown] pen needle, diabetic 32 gauge x 5/32" #50 ea 02/11/22 [Rx Last Taken Unknown] tizanidine 2 mg tablet 2 mg PO HS PRN muscle spasticity #30 tabs 04/24/22 [Rx Last Taken Unknown] lidocaine 5 % topical patch 2 patch topical DAILY #30 ea 06/03/22 [Rx Last Taken Unknown] blood sugar diagnostic (True Metrix Glucose Test Strip) #100 ea 09/11/22 [Rx Last Taken Unknown] blood-glucose meter (True Metrix Glucose Meter) #1 ea 09/11/22 [Rx Last Taken Unknown] budesonide-formoterol HFA 160 mcg-4.5 mcg/actuation aerosol inhaler (Symbicort) 2 puff inhalation BID Breo too expensive for patient, not covered #10.2 grams 10/15/22 [Rx Last Taken Unknown] budesonide 1 mg/2 mL suspension for nebulization 1 mg (2 mL) inhalation BID #60 mL 11/02/22 [Rx Last Taken Unknown] albuterol sulfate 90 mcg/actuation aerosol inhaler 2 puff inhalation Q6H PRN shortness of breath or wheezing #18 grams 11/06/22 [Rx Last Taken Unknown] ipratropium 0.5 mg-albuterol 3 mg (2.5 mg base)/3 mL nebulization soln 3 ml inhalation Q4H PRN PRN SOB &/OR WHEEZING #180 mL 11/10/22 [Rx Last Taken Unknown] cane #1 ea 11/16/22 [Rx Last Taken Unknown] citalopram 40 mg tablet 40 mg PO QHS depression #90 tabs 11/16/22 [Rx Last Taken Unknown] risperidone 1 mg tablet 1 mg PO QHS anxiety #90 tabs 12/07/22 [Rx Last Taken Unknown] atorvastatin 80 mg tablet 80 mg PO QHS #90 tabs 12/26/22 [Rx Last Taken Unknown] clopidogrel 75 mg tablet 75 mg PO DAILY #90 tabs 12/26/22 [Rx Last Taken Unknown] furosemide 20 mg tablet (Lasix) 20 mg PO DAILY #30 tabs 12/26/22 [Rx Last Taken Unknown] insulin glargine 100 unit/mL (3 mL) subcutaneous pen (Basaglar KwikPen U-100 Insulin) 40 unit (0.4 mL) subcut DAILY diabetic managment #32.4 mL 12/26/22 [Rx Last Taken Unknown] insulin lispro 100 unit/mL subcutaneous pen (Humalog KwikPen (U-100) Insulin) 35unit (0.35 mL) subcut TID diabetes 3 months #45.9 mL 12/26/22 [Rx Last Taken Unknown] isosorbide mononitrate 60 mg tablet,extended release 24 hr 60 mg PO DAILY BP #90tabs 12/26/22 [Rx Last Taken Unknown] losartan 25 mg tablet 25 mg PO DAILY #30 tabs 12/26/22 [Rx Last Taken Unknown] metoprolol tartrate 25 mg tablet 12.5 mg PO BID #90 tabs 12/26/22 [Rx Last Taken Unknown] nitroglycerin 0.4 mg sublingual tablet 0.4 mg sublingual Q5-15M PRN Pain #30 tabs 12/26/22 [Rx Last Taken Unknown] pantoprazole 40 mg tablet,delayed release 40 mg PO DAILY #90 tabs 12/26/22 [Rx Last Taken Unknown] flash glucose sensor (FreeStyle Tanika 2 Sensor kit) #2 ea 01/06/23 [Rx Last Taken Unknown] alprazolam 0.25 mg tablet 0.25 mg PO QHS #30 tabs 01/07/23 [Rx Last Taken Unknown] azithromycin 250 mg tablet See Rx Instructions PO .COMPLEX #6 tabs 01/22/23 [Rx Last Taken Unknown] cefdinir 300 mg capsule 300 mg PO BID 10 days #20 caps 01/22/23 [Rx Last Taken Unknown] Allergy/AdvReac Type Severity Reaction Status Date / Time amoxicillin [Amoxicillin] Allergy Intermediate Rash Verified 01/26/23 19:46 hydrocodone Allergy Intermediate SWELLING Verified 01/26/23 19:46 gabapentin [From Neurontin] Allergy Shortness Verified 01/26/23 19:46 of breath levofloxacin [From Levaquin] Allergy Hives Verified 01/26/23 19:46 pseudoephedrine HCl Allergy Shortness Verified 01/26/23 19:46 [From Sudafed] of breath red dye Allergy Hives Verified 01/26/23 19:46 prednisone AdvReac Severe mean mood Verified 01/26/23 19:46 codeine AdvReac HEADACHE Verified 01/26/23 19:46 Family History Brother Heart disease Mother Colon cancer Heart disease Surgical History History of cholecystectomy History of left heart catheterization (LHC) (~09/23/20) Stented coronary artery (12/28/18) Social History Smoking Status: Former smoker pack-years: 40 how long ago did patient quit smokin year ago alcohol intake: never substance use type: does not use caffeine: Yes Type: carbonated beverages and tea what type of physical activity do you participate in: none ROS ROS ED Constitutional Constitutional ED: Denies chills or fever(s) Eyes Eyes: Denies change in vision or discharge from eye(s) ENT ENT ED: Denies discharge from eye(s), rhinorrhea or sore throat Cardiovascular Cardiovascular: Denies chest pain or palpitations Respiratory/Chest Respiratory/Chest: Reports cough and dyspnea Gastrointestinal Gastrointestinal: Denies abdominal pain, diarrhea, nausea or vomiting Genitourinary Genitourinary ED: Denies dysuria Musculoskeletal Musculoskeletal: Denies back pain or extremity pain Integumentary Denies Abrasions or rash Neurologic Neurologic: Reports weakness; Denies headache(s) Psychiatric Psychiatric: Denies anxiety or depression Allergic/Immunologic Allergic/Immunologic ED: Denies lip swelling or urticaria EXAM Physical Exam Const Vital Signs: 01/26/23 19:38 01/26/23 20:08 Temperature 97.9 F Temperature Source Temporal Pulse Rate 71 Respiratory Rate 22 H Respiratory Effort Short of Breath Respiratory Depth Normal Respiratory Pattern Tachypnea Blood Pressure 160/88 H Blood Pressure Mean 112 Pulse Ox 100 Oxygen Delivery Method Nasal Cannula Nasal Cannula Oxygen Flow Rate (L/min) 4 4 Positive well nourished and well developed General Appearance ED: well developed HEENT Reports normocephalic and head/scalp atraumatic Eyes PERRL and EOMs intact bilaterally Neck supple Chest Wall inspection of chest normal and palpation of chest normal Resp Resp Narrative: Diminished breath sounds bilateral bases. Mild tachypnea. Cardio regular rate and regular rhythm GI non-tender Auscultation: hypoactive bowel sounds Palpation: soft Extremity normal to inspection Neuro oriented x3 Neuro Narrative: No focal neurologic deficit. Sensorium / Orientation: alert Psych mental status grossly normal Skin no rashes or lesions noted MDM MDM MDM Narrative Medical decision making narrative: Patient placed on monitoring specialist. EKG obtained to evaluate for cardiac arrhythmia/ischemia. Chest x-ray obtained to evaluate for acute lung pathology,cardiac size, or mediastinal abnormality. Labwork obtained to evaluate for leukocytosis, anemia, and electrolyte derangement. Blood cultures obtained. Patient given a DuoNeb treatment. Lab Data Attestation: I reviewed the patient's lab results. Labs: Laboratory Results - last 24 hr 01/26/23 01/26/23 01/26/23 19:50 19:50 19:50 WBC 10.7 RBC 4.02 L Hgb 11.8 L Hct 36.2 L MCV 90.0 MCH 29.4 MCHC 32.6 RDW Std Deviation 39.8 RDW Coeff of Malcom 12.2 Plt Count 284 MPV 10.7 Immature Gran % (Auto) 0.700 Neut % (Auto) 74.8 H Lymph % (Auto) 16.3 L Cooke % (Auto) 5.8 Eos % (Auto) 1.4 Baso % (Auto) 1.0 Absolute Neuts (auto) 8.0 H Absolute Lymphs (auto) 1.75 Nucleated RBC % 0 Sodium 130 L Potassium 3.7 Chloride 94 L Carbon Dioxide 28.0 Anion Gap 8 BUN 10 Creatinine 0.90 Estim Creat Clear Calc 45.35 Est GFR (MDRD) Af Amer 79 Est GFR (MDRD) Non-Af 65 BUN/Creatinine Ratio 11.1 Glucose 261 H Calcium 9.2 Troponin I High Sens 7 B-Natriuretic Peptide 25.7 Radiography Chest X-Ray - ED: 1 View, Read by ED Physician and Left Infiltrate Diagnostic Testing: Clinical Impression(s) from Imaging Studies Chest X-Ray 01/26/23 20:25 IMPRESSION: There is a left pleural effusion vs prominent pleural fat. Left lower lobe infiltrate. Electronically Signed: Andrew Wheeler MD at 20:49 EDT Reading Location ID and State: [facility] / [place] , Service support , EKG Initial EKG: Attestation: I personally reviewed and interpreted this EKG as follows: Interpretation: Sinus Rhythm (Sinus at 69 bpm with no acute ischemia.) Treatment and Re-Evaluation :: CBC was normal white count with 75% neutrophils. Hemoglobin is 11.8 and appearsstable when compared to prior values. Sodium is 130 which again is consistent with her most recent labs. Renal function is normal. Troponin is normal at 7 and BNP is normal at 25. Glucose is slightly elevated at 261. Portable chest x-ray per my interpretation does reveal loss of cardiac silhouette along the left most border concerning for infiltrate. Radiology interpretation is reviewed and they do feel patient has a left pleural effusion versus prominent pleural fat as well as a left lower lobe infiltrate. Patient just completed a course of azithromycin today without improvement. Given her history of COPD and asthma with oxygen dependency and feeling outpatient treatment I will discuss case with hospitalist for admission. I willtreat her with Rocephin which she has tolerated well in the past. Given she already had a dose of azithromycin today I would not repeat this at this time. She will be given a dose of IV Solu-Medrol which she has tolerated well in the past. Discharge Plan Dx/Rx/DC Orders Clinical Impression: Pneumonia Disposition Disposition: Acute Care Hospital [facility] What to do if you have Problems For any increased pain, shortness of breath, bleeding, nausea or vomiting, chestpain, or any unexpected problems, contact your Primary Care Provider. Call [facility] ([phone]) or report to the closest Emergency Room. Call 911 if necessary. 01/26/23 2150 <Electronically signed by Mariah Miller MD> Cosigner Signature (if applicable): CC: Dr. Billy Madera MD ~ Signed [facility] Work Phone: [phone] 807-177705-29-2023 Discharge summary Author Marko [facility] January 05, 2023 1:39am Note Date/Time January 04, 2023 11:49 pm [facility] Medical Records Department [address] [place] [address] Emergency Department Summary 01/04/23 MR#: [id number] Acct: [id number] Name: JEANNA VARGAS Rep #:[id number] : 1950 72 From: Marko Smith DO PCP: Dr. Billy Madera MD Status:R EG ER Location: ED HPI History of Present Illness Chief Complaint: Chest Pain Informant: patient and EMS Narrative Narrative: Patient is a 72-year-old female from home with past medical history of smoking/COPD and chronic need for oxygen as well as type 2 diabetes and coronaryartery disease. Patient reports this evening that she was sitting at home when she was having a headache and feeling "dizzy". She states that she tried to climb into bed and noticed that her whole body had a "pins and needle sensation"and she also felt a heaviness on her chest. She states because of her known history of coronary artery disease requiring a stent she was concerned this could be a cardiac event and therefore called 911 and was brought in for evaluation. Of note patient states she did take 3 nitro at home with minimal symptom improvement [facility] Medical History Anemia Anxiety and depression Asthma with COPD Atherosclerotic heart disease of [place] coronary artery without angina pectoris Back pain Chest pain Chronic back pain Chronic respiratory failure COPD (chronic obstructive pulmonary disease) Diastolic CHF Former smoker Hepatitis HLD (hyperlipidemia) Hypertension Morbid obesity MARK treated with BiPAP Psoriasis Smoking greater than 40 pack years Thyroid nodule Type 2 diabetes mellitus Home Medications Handicap Placard #1 ea 12/12/20 [Rx Last Taken Unknown] flash glucose scanning reader ([employer] Tanika 2 [place]) #1 ea 01/31/21 [Rx Last Taken Unknown] acetaminophen 500 mg tablet 500 mg PO QHS 10/21/21 [History Last Taken Unknown] bisacodyl 5 mg tablet,delayed release (Dulcolax (bisacodyl)) 5 mg PO QHS PRN constipation 30 days #30 tabs 11/13/21 [Rx Last Taken Unknown] pen needle, diabetic 32 gauge x 5/32" #50 ea 02/11/22 [Rx Last Taken Unknown] tizanidine 2 mg tablet 2 mg PO HS PRN muscle spasticity #30 tabs 04/24/22 [Rx Last Taken Unknown] lidocaine 5 % topical patch 2 patch topical DAILY #30 ea 06/03/22 [Rx Last Taken Unknown] flash glucose sensor ([employer] Tanika 2 Sensor kit) #2 ea 08/26/22 [Rx Last Taken Unknown] blood sugar diagnostic (True Metrix Glucose Test Strip) #100 ea 09/11/22 [Rx Last Taken Unknown] blood-glucose meter (True Metrix Glucose Meter) #1 ea 09/11/22 [Rx Last Taken Unknown] budesonide-formoterol HFA 160 mcg-4.5 mcg/actuation aerosol inhaler (Symbicort) 2 puff inhalation BID Breo too expensive for patient, not covered #10.2 grams 10/15/22 [Rx Last Taken Unknown] budesonide 1 mg/2 mL suspension for nebulization 1 mg (2 mL) inhalation BID #60 mL 11/02/22 [Rx Last Taken Unknown] albuterol sulfate 90 mcg/actuation aerosol inhaler 2 puff inhalation Q6H PRN shortness of breath or wheezing #18 grams 11/06/22 [Rx Last Taken Unknown] ipratropium 0.5 mg-albuterol 3 mg (2.5 mg base)/3 mL nebulization soln 3 ml inhalation Q4H PRN PRN SOB &/OR WHEEZING #180 mL 11/10/22 [Rx Last Taken Unknown] cane #1 ea 11/16/22 [Rx Last Taken Unknown] citalopram 40 mg tablet 40 mg PO QHS depression #90 tabs 11/16/22 [Rx Last Taken Unknown] alprazolam 0.25 mg tablet 0.25 mg PO QHS #30 tabs 12/07/22 [Rx Last Taken Unknown] risperidone 1 mg tablet 1 mg PO QHS anxiety #90 tabs 12/07/22 [Rx Last Taken Unknown] atorvastatin 80 mg tablet 80 mg PO QHS #90 tabs 12/26/22 [Rx Last Taken Unknown] clopidogrel 75 mg tablet 75 mg PO DAILY #90 tabs 12/26/22 [Rx Last Taken Unknown] furosemide 20 mg tablet (Lasix) 20 mg PO DAILY #30 tabs 12/26/22 [Rx Last Taken Unknown] insulin glargine 100 unit/mL (3 mL) subcutaneous pen (Basaglar KwikPen U-100 Insulin) 40 unit (0.4 mL) subcut DAILY diabetic managment #32.4 mL 12/26/22 [Rx Last Taken Unknown] insulin lispro 100 unit/mL subcutaneous pen (Humalog KwikPen (U-100) Insulin) 35unit (0.35 mL) subcut TID diabetes 3 months #45.9 mL 12/26/22 [Rx Last Taken Unknown] isosorbide mononitrate 60 mg tablet,extended release 24 hr 60 mg PO DAILY BP #90tabs 12/26/22 [Rx Last Taken Unknown] losartan 25 mg tablet 25 mg PO DAILY #30 tabs 12/26/22 [Rx Last Taken Unknown] metoprolol tartrate 25 mg tablet 12.5 mg PO BID #90 tabs 12/26/22 [Rx Last Taken Unknown] nitroglycerin 0.4 mg sublingual tablet 0.4 mg sublingual Q5-15M PRN Pain #30 tabs 12/26/22 [Rx Last Taken Unknown] pantoprazole 40 mg tablet,delayed release 40 mg PO DAILY #90 tabs 12/26/22 [Rx Last Taken Unknown] Allergy/AdvReac Type Severity Reaction Status Date / Time amoxicillin [Amoxicillin] Allergy Intermediate Rash Verified 12/03/22 14:22 hydrocodone Allergy Intermediate SWELLING Verified 12/03/22 14:22 gabapentin [From Neurontin] Allergy Shortness Verified 12/03/22 14:22 of breath levofloxacin [From Levaquin] Allergy Hives Verified 12/03/22 14:22 pseudoephedrine HCl Allergy Shortness Verified 12/03/22 14:22 [From Sudafed] of breath red dye Allergy Hives Verified 12/03/22 14:22 prednisone AdvReac Severe mean mood Verified 12/03/22 14:22 codeine AdvReac HEADACHE Verified 12/03/22 14:22 Family History Brother Heart disease Mother Colon cancer Heart disease Surgical History History of cholecystectomy History of left heart catheterization (LHC) (~09/23/20) Stented coronary artery (12/28/18) Social History Smoking Status: Former smoker pack-years: 40 how long ago did patient quit smokin year ago alcohol intake: never substance use type: does not use caffeine: Yes Type: carbonated beverages and tea what type of physical activity do you participate in: none ROS ROS ED Constitutional Constitutional ED: Denies chills or fever(s) Eyes Eyes: Denies blurry vision or change in vision ENT ENT ED: Denies sore throat Cardiovascular Cardiovascular: Reports chest pain; Denies palpitations or racing heartbeat Respiratory/Chest Respiratory/Chest: Denies cough or dyspnea Gastrointestinal Gastrointestinal: Denies abdominal pain, diarrhea, nausea or vomiting Genitourinary Genitourinary ED: Denies dysuria Musculoskeletal Musculoskeletal: Denies myalgias Integumentary Denies rash Neurologic Neurologic: Reports headache(s) and other Details: Positive dizziness Hematologic/Lymphatic Hematologic/Lymphatic: Denies easy bleeding or easy bruising EXAM Physical Exam Const Vital Signs: 01/04/23 22:48 01/04/23 22:51 01/04/23 23:24 Temperature 98.6 F 98.6 F Temperature Source Oral Oral Pulse Rate 73 Respiratory Rate 15 Blood Pressure 170/71 H 174/77 H Blood Pressure Mean 104 109 Pulse Ox 97 Oxygen Delivery Method Room Air Oxygen Flow Rate (L/min) 01/04/23 23:47 01/05/23 00:44 Temperature Temperature Source Pulse Rate 87 Respiratory Rate 26 H Blood Pressure 111/93 H 165/67 H Blood Pressure Mean 99 Pulse Ox 100 100 Oxygen Delivery Method Nasal Cannula Oxygen Flow Rate (L/min) 4 Positive well nourished, well developed and obese General Appearance ED: well developed Nutritional Appearance: obese HEENT Reports dry mucous membranes HEENT Narrative: No tongue or lip swelling no oral lesions no airway edema or compromise Mouth ED: Yes dry mucous membranes Mouth: dry mucous membranes Eyes PERRL and EOMs intact bilaterally General Eye ED: Negative for scleral icterus Neck supple and no JVD Neck Narrative: No nuchal rigidity or meningeal signs present Chest Wall Chest Narrative: No bony deformity or crepitance noted Resp Resp Narrative: Breath sounds are diminished throughout with diffuse expiratory wheeze and faintrhonchi in the bilateral bases patient does have splinting and occasional tachypnea Cardio regular rate and regular rhythm Rate: other Other Details: Radial pulses are plus 2 out of 4 bilaterally are equal and symmetric GI non-tender and non-distended GI Narrative: Soft nontender nondistended with normal active bowel sounds no voluntary guarding or rigidity no pulsatile mass. Patient does have a reducible ventral hernia present Auscultation: normoactive bowel sounds Palpation: soft Extremity normal to inspection Extremity Narrative: No asymmetric edema no pitting edema negative Homans' sign bilaterally Neuro oriented x3, CN's II-XII intact bilaterally and no sensory deficits noted Neuro Narrative: Cranial nerves II through XII are grossly intact there are no focal neurologic deficit. No pronator drift no dysmetria no truncal ataxia. NIH stroke scale score is 0 Sensorium / Orientation: alert Psych Psych Narrative: Patient has a nervous and anxious affect Skin no rashes or lesions noted MDM MDM MDM Narrative Medical decision making narrative: Patient presented to the ER hypertensive and with multiple complaint. She reported feeling lightheaded/dizzy and chest discomfort. Chart review reveals she was seen in the ER 6 days ago and had 2 normal troponins at a value of 6 foreach time. Chart review also reveals that on December 25 of this year she had a heart cath which showed a patent stent and stable disease and recommendation wasfor medical management. Based on the patient's multiple symptom complex there is concern this could be a neurologic event versus vertigo versus hypertensive emergency versus acute coronary syndrome versus acute kidney injury. Therefore elected to perform basic laboratory studies. Labs showed a troponin of 5 which was technically lower than her value from 6 days ago going against cardiac event. Labs showed no signs of severe electrolyte derangement or acute kidney injury. EKG was sinus rhythm. Urine showed +2 bacteria but there are no white blood cells present and patient does not have dysuria therefore will be sent forculture but I do not feel this is related to a UTI and therefore there is no need for antibiotics. Patient was given clonidine and hydralazine and the blood pressure improved. At this time she does not have any focal neurologic event tosuggest stroke or hypertensive encephalopathy with troponin being 5 and this is less than her recent work-up 6 days ago and the fact she has had a heart cath which showed no severe stenosis or blockage there is no need for further inpatient work-up. Patient be discharged at this time and can follow-up on an outpatient basis regarding her symptoms History & Record Review Discussion w/independent historian: EMS personnel and Patient Lab Data Attestation: I reviewed the patient's lab results. Labs: Laboratory Results - last 24 hr 01/04/23 01/04/23 01/04/23 22:40 22:40 23:46 WBC 11.2 H RBC 4.05 L Hgb 12.2 Hct 37.3 MCV 92.1 MCH 30.1 MCHC 32.7 RDW Std Deviation 40.6 RDW Coeff of Malcom 12.1 Plt Count 277 MPV 11.3 Immature Gran % (Auto) 1.400 H Neut % (Auto) 69.5 Lymph % (Auto) 20.7 Cooke % (Auto) 5.6 Eos % (Auto) 2.1 Baso % (Auto) 0.7 Absolute Neuts (auto) 7.8 H Absolute Lymphs (auto) 2.31 Nucleated RBC % 0 Sodium 130 L Potassium 3.5 Chloride 92 L Carbon Dioxide 30.0 Anion Gap 8 BUN 15 Creatinine 1.06 H Estim Creat Clear Calc 38.50 Est GFR (MDRD) Af Amer 66 Est GFR (MDRD) Non-Af 54 L BUN/Creatinine Ratio 14.2 Glucose 213 H Calcium 9.6 Magnesium 2.1 Troponin I High Sens 5 Urine Color Yellow Urine Clarity Clear Urine pH 6.5 Ur Specific [place]ague 1.005 Urine Protein Negative Urine Glucose (UA) Normal Urine Ketones Negative Urine Occult Blood Negative Urine Nitrite Negative Urine Bilirubin Negative Urine Urobilinogen Normal Ur Leukocyte Esterase Negative Urine RBC 0 SEEN Urine WBC 0-5 SEEN Ur Squamous Epith Cells 0-5 SEEN Urine Bacteria 2+ Urine Mucus 0 SEEN Discharge Plan Triage Chief Complaint: Chest Pain ED Provider: Marko Smith Dx/Rx/DC Orders Clinical Impression: Nonspecific chest pain, Accelerated hypertension, Type 2 diabetes mellitus Instructions: Controlling High Blood Pressure, ED Chest Pain, Uncertain Cause Prescriptions: No Action (DME) Handicap Placard See Rx Instructions .ROUTE .MEDSUPPLY Qty: 1 0RF Rx Instructions: As directed, length of time 3 years lidocaine 5 % adhesive patch,medicated 2 patch topical DAILY Qty: 30 3RF Rx Instructions: leave on most painful area for up to 12 hrs tizanidine 2 mg tablet 2 mg PO HS PRN (Reason: muscle spasticity) Qty: 30 0RF budesonide 1 mg/2 mL suspension for nebulization 1 mg inhalation BID Qty: 60 6RF citalopram 40 mg tablet 40 mg PO QHS Qty: 90 3RF (DME) cane Device See Rx Instructions .Route Qty: 1 0RF Rx Instructions: As directed acetaminophen 500 MG tablet 500 mg PO QHS Rx Instructions: over the counter. no prescription required. insulin lispro [Humalog KwikPen Insulin] 100 unit/mL insulin pen 35 unit SC TID 90 Days Qty: 45.9 3RF Rx Instructions: Hold if glucose less than 130 mg/dl insulin glargine [Basaglar KwikPen U-100 Insulin] 100 unit/mL (3 mL) insulin pen 40 unit subcut DAILY Qty: 32.4 1RF Rx Instructions: daily at bedtime atorvastatin 80 mg tablet 80 mg PO QHS Qty: 90 3RF clopidogrel 75 mg tablet 75 mg PO DAILY Qty: 90 3RF isosorbide mononitrate 60 mg tablet extended release 24 hr 60 mg PO DAILY Qty: 90 3RF pantoprazole 40 mg tablet,delayed release (DR/EC) 40 mg PO DAILY Qty: 90 1RF losartan 25 mg tablet 25 mg PO DAILY Qty: 30 2RF nitroglycerin 0.4 mg tablet, sublingual 0.4 mg SUBLINGUAL Q5-15M PRN (Reason: Pain) Qty: 30 0RF furosemide [Lasix] 20 mg tablet 20 mg PO DAILY Qty: 30 2RF metoprolol tartrate 25 mg tablet 12.5 mg PO BID Qty: 90 2RF Rx Instructions: (DME) FreeStyle Tanika 2 [place] Replaced By [facility] See Rx Instructions .ROUTE .MEDSUPPLY Qty: 1 0RF Rx Instructions: As directed bisacodyl [Dulcolax (bisacodyl)] 5 mg tablet,delayed release (DR/EC) 5 mg PO QHS PRN (Reason: constipation) 30 Days Qty: 30 3RF (DME) pen needle, diabetic 32 gauge x 5/32" needle See Rx Instructions .ROUTE .MEDSUPPLY Qty: 50 0RF Rx Instructions: 4x/day (DME) FreeStyle Tanika 2 Sensor Kit See Rx Instructions .ROUTE .MEDSUPPLY Qty: 2 3RF Rx Instructions: As directed (DME) blood-glucose meter [True Metrix Glucose Meter] [facility] See Rx Instructions .Route Qty: 1 0RF Rx Instructions: As directed (DME) True Metrix Glucose Test Strip Strip See Rx Instructions .Route Qty: 100 7RF Rx Instructions: tid budesonide-formoterol [Symbicort] 160-4.5 mcg/actuation HFA aerosol inhaler 2 puff inhalation BID Qty: 10.2 0RF albuterol sulfate 90 mcg/actuation HFA aerosol inhaler 2 puff INHALATION Q6H PRN (Reason: shortness of breath or wheezing) Qty: 18 3RF ipratropium-albuterol 0.5 mg-3 mg(2.5 mg base)/3 mL solution for nebulization 3 ml INHALATION Q4H PRN PRN (Reason: SOB &/OR WHEEZING) Qty: 180 6RF alprazolam 0.25 mg tablet 0.25 mg PO QHS Qty: 30 0RF risperidone 1 mg tablet 1 mg PO QHS Qty: 90 1RF Primary Care Provider: Billy Madera Referrals: Billy Madera MD [Primary Care Provider] - Activity Restrictions/Additional Instructions: Your work-up today showed no signs of heart damage therefore continue the medication as prescribed by your analytical research program manager and return to the ER should you have any further concerns Disposition Disposition: Home, Self Care What to do if you have Problems For any increased pain, shortness of breath, bleeding, nausea or vomiting, chestpain, or any unexpected problems, contact your Primary Care Provider. Call [facility] ([phone]) or report to the closest Emergency Room. Call 911 if necessary. 01/05/23 0139 <Electronically signed by Marko Smith DO> Cosigner Signature (if applicable): CC: Dr. Billy Madera MD ~ Signed [facility] Work Phone: [phone] Discharge summary Author Marko [facility] October 15, 2022 5:10am Note Date/Time October 15, 2022 4:57 am [facility] Medical Records Department [address] [facility] [place] [address] Emergency Department Summary 10/15/22 MR#: [id number] Acct: [id number] Name: JEANNA VARGAS Rep #:[id number] : 1950 72 From: Marko Smith DO PCP: Dr. Billy Madrea MD Status:R EG ER Location: ED HPI History of Present Illness Chief Complaint: Shortness of Breath Narrative Narrative: Patient is a 72-year-old female with past medical history of COPD on chronically4 L of nasal cannula oxygen as well as type 2 diabetes and congestive heart failure. Patient states that she ate soy sauce this evening and then after doing so felt she was having increased work of breathing that was not respondingto her increase in her oxygen level to 6 L. Secondary to this she called EMS. Patient denies any fevers or chills or any recent sick contacts or chest pain associated with this. She states she does have a history of "pneumonia" and hasconcern for that once again and therefore presents for evaluation [facility] Medical History Anemia Anxiety and depression Asthma Asthma with COPD Atherosclerotic heart disease of [place] coronary artery without angina pectoris Back pain Bilateral pneumonia CHF (congestive heart failure) Chronic back pain Chronic respiratory failure Constipation COPD (chronic obstructive pulmonary disease) Depression Diabetes Flu vaccine need Former smoker Health care maintenance Heart disease Hepatitis History of constipation HLD (hyperlipidemia) Hypertension Lung disease On home oxygen therapy MARK (obstructive sleep apnea) Pneumonia Psoriasis Smoking greater than 40 pack years SOB (shortness of breath) Thyroid nodule Type 2 diabetes mellitus Home Medications Handicap Placard #1 ea 12/12/20 [Rx Last Taken Unknown] flash glucose scanning reader ([employer] Tanika [employer] [place]) #1 ea 01/31/21 [Rx Last Taken Unknown] citalopram 40 mg tablet 40 mg PO QHS depression #90 tabs 07/23/21 [Rx Last Taken 08/08/21] insulin lispro 100 unit/mL subcutaneous pen (Humalog KwikPen (U-100) Insulin) 17unit (0.17 mL) subcut TID diabetes 3 months #45.9 mL 08/19/21 [Rx Last Taken Unknown] insulin glargine 100 unit/mL (3 mL) subcutaneous pen (Basaglar KwikPen U-100 Insulin) 36 unit subcut DAILY diabetic managment 10/12/21 [History Last Taken Unknown] acetaminophen 500 mg tablet 500 mg PO QHS 10/21/21 [History Last Taken Unknown] bisacodyl 5 mg tablet,delayed release (Dulcolax (bisacodyl)) 5 mg PO QHS PRN constipation 30 days #30 tabs 11/13/21 [Rx Last Taken Unknown] atorvastatin 80 mg tablet 80 mg PO QHS #90 tabs 12/10/21 [Rx Last Taken Unknown] nitroglycerin 0.4 mg sublingual tablet 0.4 mg sublingual Q5-15M PRN Pain 01/20/22 [History Last Taken Unknown] ipratropium 0.5 mg-albuterol 3 mg (2.5 mg base)/3 mL nebulization soln 3 ml inhalation Q4H PRN PRN SOB &/OR WHEEZING #180 mL 02/11/22 [Rx Last Taken Unknown] pen needle, diabetic 32 gauge x 5/32" #50 ea 02/11/22 [Rx Last Taken Unknown] pantoprazole 40 mg tablet,delayed release 40 mg PO DAILY #90 tabs 04/24/22 [Rx Last Taken Unknown] tizanidine 2 mg tablet 2 mg PO HS PRN muscle spasticity #30 tabs 04/24/22 [Rx Last Taken Unknown] metoprolol tartrate 25 mg tablet 12.5 mg PO BID #90 tabs 05/04/22 [Rx Last Taken Unknown] losartan 25 mg tablet 25 mg PO DAILY #30 tabs 05/13/22 [Rx Last Taken Unknown] furosemide 20 mg tablet (Lasix) 20 mg PO DAILY #30 tabs 06/01/22 [Rx Last Taken Unknown] risperidone 1 mg tablet 1 mg PO QHS anxiety #90 tabs 06/01/22 [Rx Last Taken Unknown] lidocaine 5 % topical patch 2 patch topical DAILY #30 ea 06/03/22 [Rx Last Taken Unknown] albuterol sulfate 90 mcg/actuation aerosol inhaler 2 puff inhalation Q6H PRN shortness of breath or wheezing #18 grams 07/24/22 [Rx Last Taken Unknown] budesonide 1 mg/2 mL suspension for nebulization 1 mg (2 mL) inhalation BID #60 mL 08/13/22 [Rx Last Taken Unknown] flash glucose sensor ([employer] Tanika 2 Sensor kit) #2 ea 08/26/22 [Rx Last Taken Unknown] prednisone 10 mg tablet 10 mg PO DAILY #20 tabs 09/03/22 [Rx Last Taken Unknown] blood sugar diagnostic (True Metrix Glucose Test Strip) #100 ea 09/11/22 [Rx Last Taken Unknown] blood-glucose meter (True Metrix Glucose Meter) #1 ea 09/11/22 [Rx Last Taken Unknown] clopidogrel 75 mg tablet 75 mg PO DAILY #90 tabs 10/01/22 [Rx Last Taken Unknown] isosorbide mononitrate 60 mg tablet,extended release 24 hr 60 mg PO DAILY BP #90tabs 10/01/22 [Rx Last Taken Unknown] alprazolam 0.25 mg tablet 0.25 mg PO QHS #30 tabs 10/08/22 [Rx Last Taken Unknown] fluticasone furoate 100 mcg-vilanterol 25 mcg/dose inhalation powder (Breo Ellipta) 1 inh inhalation DAILY #60 ea 10/15/22 [Rx Last Taken Unknown] Allergy/AdvReac Type Severity Reaction Status Date / Time amoxicillin [Amoxicillin] Allergy Intermediate Rash Verified 10/15/22 02:23 hydrocodone Allergy Intermediate SWELLING Verified 10/15/22 02:23 gabapentin [From Neurontin] Allergy Shortness Verified 10/15/22 02:23 of breath levofloxacin [From Levaquin] Allergy Hives Verified 10/15/22 02:23 pseudoephedrine HCl Allergy Shortness Verified 10/15/22 02:23 [From Sudafed] of breath red dye Allergy Hives Verified 10/15/22 02:23 prednisone AdvReac Severe mean mood Verified 10/15/22 02:23 codeine AdvReac HEADACHE Verified 10/15/22 02:23 Family History Brother Heart disease Mother Colon cancer Heart disease Surgical History History of cholecystectomy History of coronary artery stent placement History of left heart catheterization (LHC) (~09/23/20) Hx of CABG Stented coronary artery (12/28/18) Social History Smoking Status: Former smoker pack-years: 40 how long ago did patient quit smokin year ago alcohol intake: never substance use type: does not use caffeine: Yes Type: carbonated beverages and tea what type of physical activity do you participate in: none ROS ROS ED Constitutional Constitutional ED: Denies chills or fever(s) ENT ENT ED: Denies sore throat Cardiovascular Cardiovascular: Denies chest pain Respiratory/Chest Respiratory/Chest: Reports cough and dyspnea Gastrointestinal Gastrointestinal: Denies abdominal pain, diarrhea, nausea or vomiting Genitourinary Genitourinary ED: Reports urinary frequency; Denies dysuria Musculoskeletal Musculoskeletal: Denies myalgias Integumentary Denies rash Neurologic Neurologic: Denies headache(s) Hematologic/Lymphatic Hematologic/Lymphatic: Denies easy bleeding or easy bruising EXAM Physical Exam Const Vital Signs: 10/15/22 02:15 10/15/22 02:20 10/15/22 02:29 Temperature 97.6 F L 97.6 F L Temperature Source Temporal Temporal Pulse Rate 70 71 67 Respiratory Rate 30 H 28 H 30 H Respiratory Pattern Blood Pressure 194/64 H 194/64 H Blood Pressure Mean 107 107 Pulse Ox 100 100 99 Oxygen Delivery Method Non-Rebreather Non-Rebreather Nasal Cannula Oxygen Flow Rate (L/min) 15 15 6 10/15/22 03:22 10/15/22 03:22 10/15/22 03:45 Temperature 97.8 F Temperature Source Temporal Pulse Rate 100 65 Respiratory Rate 16 17 26 H Respiratory Pattern Tachypnea Blood Pressure 188/60 H Blood Pressure Mean 102 Pulse Ox 99 98 Oxygen Delivery Method Room Air Room Air Oxygen Flow Rate (L/min) 10/15/22 04:00 10/15/22 04:00 Temperature 98.2 F Temperature Source Temporal Pulse Rate 66 66 Respiratory Rate 30 H 30 H Respiratory Pattern Blood Pressure 167/50 H 167/50 H Blood Pressure Mean 89 89 Pulse Ox 100 100 Oxygen Delivery Method Nasal Cannula Nasal Cannula Oxygen Flow Rate (L/min) 4 4 Positive well nourished, well developed and obese General Appearance ED: well developed Nutritional Appearance: obese HEENT Reports moist mucous membranes HEENT Narrative: No tongue or lip swelling no oral lesions no airway edema or compromise Eyes PERRL and EOMs intact bilaterally General Eye ED: Negative for pale conjunctiva Neck supple and No no JVD Neck Narrative: No nuchal rigidity or meningeal signs noted Resp normal respiratory effort Resp Narrative: No nasal flaring retractions tachypnea or accessory muscle use. Breath sounds are diminished throughout with faint rhonchi in the lower lobes greatest on the left Cardio regular rate and regular rhythm Rate: other Other Details: Radial pulses are plus 2 out of 4 bilaterally are equal and symmetric GI normal to inspection, nondistended, normoactive bowel sounds, non-tender, non-distended and no masses GI Narrative: No voluntary guarding or rigidity no pulsatile mass Auscultation: normoactive bowel sounds Palpation: soft Extremity Extremity Narrative: Trace to +1 pitting edema to the bilateral lower extremities that is equal and symmetric with negative Homans' sign bilaterally Neuro oriented x3 and CN's II-XII intact bilaterally Sensorium / Orientation: alert Psych mental status grossly normal Skin no rashes or lesions noted MDM MDM MDM Narrative Medical decision making narrative: Patient presented to the ER satting in the mid to high 90s on 6 L and had minimal work of breathing. With her history of CHF and COPD there is concern this is COPD exacerbation versus pneumonia versus CHF exacerbation or even secondary to anemia. Therefore a basic work-up was obtained. Blood work revealed no clinically significant findings and chest x-ray revealed chronic changes without acute infiltrate pleural effusion or pneumothorax. Patient was given IV steroids and a nebulizer treatment and her oxygen was turned down to 4 L which is her baseline oxygen value. After treatment patient's oxygen value will remain 98 to 100% on her 4 L and her work of breathing had improved as well. Therefore as work-up reveals no acute signs of infection or CHF exacerbation or anemia and she is at her baseline oxygen value there is no need for admission and she is otherwise safe for discharge. History & Record Review Discussion w/independent historian: EMS personnel and Patient Lab Data Attestation: I reviewed the patient's lab results. Labs: Laboratory Results - last 24 hr 10/15/22 10/15/22 10/15/22 02:35 02:35 02:35 WBC 9.3 RBC 3.97 L Hgb 11.8 L Hct 35.9 L MCV 90.4 MCH 29.7 MCHC 32.9 RDW Std Deviation 39.3 RDW Coeff of Malcom 12.0 Plt Count 269 MPV 11.2 Immature Gran % (Auto) 0.300 Neut % (Auto) 68.9 Lymph % (Auto) 22.1 [place]oke % (Auto) 5.9 Eos % (Auto) 1.9 Baso % (Auto) 0.9 Absolute Neuts (auto) 6.4 Absolute Lymphs (auto) 2.05 Nucleated RBC % 0 Sodium 137 Potassium 4.4 Chloride 100 Carbon Dioxide 30.0 Anion Gap 7 BUN 9 Creatinine 0.75 Estim Creat Clear Calc 40.81 Est GFR (MDRD) Af Amer 98 Est GFR (MDRD) Non-Af 81 BUN/Creatinine Ratio 12.0 Glucose 146 H Calcium 9.5 B-Natriuretic Peptide 81.2 Radiography Diagnostic Testing: Clinical Impression(s) from Imaging Studies Chest X-Ray 10/15/22 03:06 IMPRESSION: No definite acute findings. Bibasilar presumed chronic parenchymal lung base changes and pleural-parenchymal scarring, greater on the left. Electronically Signed: Rabia Nguyen MD at 4:21 EST , Chest x-ray as interpreted by the emergency medicine physician reveals chronic changes to the left lung base consistent with parenchymal scarring without acuteinfiltrate pneumothorax or pleural effusion Discharge Plan Triage Chief Complaint: Shortness of Breath ED Provider: Marko Smith Dx/Rx/DC Orders Clinical Impression: Acute exacerbation of chronic obstructive pulmonary disease, Type 2 diabetes mellitus, CHF (congestive heart failure) Instructions: COPD: Wheezing and Chest Tightness Prescriptions: New fluticasone furoate-vilanterol [Breo Ellipta] 100-25 mcg/dose blister with device 1 inh inhalation DAILY Qty: 60 2RF No Action (DME) Handicap Placard See Rx Instructions .ROUTE .MEDSUPPLY Qty: 1 0RF Rx Instructions: As directed, length of time 3 years insulin lispro [Humalog KwikPen Insulin] 100 unit/mL insulin pen 17 unit SC TID 90 Days Qty: 45.9 3RF Rx Instructions: Hold if glucose less than 130 mg/dl lidocaine 5 % adhesive patch,medicated 2 patch topical DAILY Qty: 30 3RF Rx Instructions: leave on most painful area for up to 12 hrs tizanidine 2 mg tablet 2 mg PO HS PRN (Reason: muscle spasticity) Qty: 30 0RF pantoprazole 40 mg tablet,delayed release (DR/EC) 40 mg PO DAILY Qty: 90 1RF budesonide 1 mg/2 mL suspension for nebulization 1 mg inhalation BID Qty: 60 6RF prednisone 10 mg tablet 10 mg PO DAILY Qty: 20 0RF Rx Instructions: Take 4 tabs daily for 5 days insulin glargine [Basaglar KwikPen U-100 Insulin] 100 unit/mL (3 mL) insulin pen 36 unit subcut DAILY Rx Instructions: daily at bedtime acetaminophen 500 MG tablet 500 mg PO QHS Rx Instructions: over the counter. no prescription required. nitroglycerin 0.4 mg tablet, sublingual 0.4 mg SUBLINGUAL Q5-15M PRN (Reason: Pain) (DME) [employer]Style Tanika 2 [place] [facility] [place] See Rx Instructions .ROUTE .MEDSUPPLY Qty: 1 0RF Rx Instructions: As directed citalopram 40 mg tablet 40 mg PO QHS Qty: 90 1RF bisacodyl [Dulcolax (bisacodyl)] 5 mg tablet,delayed release (DR/EC) 5 mg PO QHS PRN (Reason: constipation) 30 Days Qty: 30 3RF atorvastatin 80 mg tablet 80 mg PO QHS Qty: 90 3RF ipratropium-albuterol 0.5 mg-3 mg(2.5 mg base)/3 mL solution for nebulization 3 ml INHALATION Q4H PRN PRN (Reason: SOB &/OR WHEEZING) Qty: 180 6RF (DME) pen needle, diabetic 32 gauge x 5/32" needle See Rx Instructions .ROUTE .MEDSUPPLY Qty: 50 0RF Rx Instructions: 4x/day metoprolol tartrate 25 mg tablet 12.5 mg PO BID Qty: 90 3RF Rx Instructions: losartan 25 mg tablet 25 mg PO DAILY Qty: 30 11RF furosemide [Lasix] 20 mg tablet 20 mg PO DAILY Qty: 30 11RF risperidone 1 mg tablet 1 mg PO QHS Qty: 90 1RF albuterol sulfate 90 mcg/actuation HFA aerosol inhaler 2 puff INHALATION Q6H PRN (Reason: shortness of breath or wheezing) Qty: 18 3RF (DME) FreeStyle Tanika 2 Sensor Kit See Rx Instructions .ROUTE .MEDSUPPLY Qty: 2 3RF Rx Instructions: As directed (DME) blood-glucose meter [True Metrix Glucose Meter] Misc See Rx Instructions .Route Qty: 1 0RF Rx Instructions: As directed (DME) True Metrix Glucose Test Strip Strip See Rx Instructions .Route Qty: 100 7RF Rx Instructions: tid isosorbide mononitrate 60 mg tablet extended release 24 hr 60 mg PO DAILY Qty: 90 3RF clopidogrel 75 mg tablet 75 mg PO DAILY Qty: 90 3RF alprazolam 0.25 mg tablet 0.25 mg PO QHS Qty: 30 0RF Primary Care Provider: Billy Madera Referrals: Billy Madera MD [Primary Care Provider] - Activity Restrictions/Additional Instructions: Please begin taking the daily maintenance inhaler of Breo to help prevent exacerbations of your COPD. Continue all of your other medications as previously directed and return to the ER should you have any further concerns Disposition Disposition: Home, Self Care What to do if you have Problems For any increased pain, shortness of breath, bleeding, nausea or vomiting, chestpain, or any unexpected problems, contact your Primary Care Provider. Call [facility] ([phone]) or report to the closest Emergency Room. Call 911 if necessary. 10/15/22 0510 <Electronically signed by Marko Smith DO> Cosigner Signature (if applicable): CC: Dr. Billy Madera MD ~ Signed [facility] Work Phone: [phone]ong [facility] September 23, 2022 10:27pm Note Date/Time September 23, 2022 7:23pm [facility] Medical Records Department [address] [place] [address] Emergency Department Summary 09/23/22 MR#: [id number] Acct: [id number] Name: JEANNA VARGAS Rep #:[id number] : 1950 72 From: Sandeep Fong MD PCP: Dr. Billy Madera MD Status:R EG ER Location: ED HPI History of Present Illness Chief Complaint: Chest Pain Informant: patient Narrative Narrative: Patient presents with worsening breathing wheezing and some chest pain for 3 days. All of them have been going on 3 days. Her chest pain is bilateral lowerribs and mostly present when she is coughing. She states she has been wheezing more. She is bringing up some sputum. She states she has fevers but has not checked her temperature. She has been using her nebulizer and last used it about 3-1/2 hours ago. She is on 4 L of oxygen at home and has not changed this. She states her saturations are always good approaching 100%. She also does have a history of heart disease. She has had stents but no bypass. She pancho Plavix and is taking it. She has never had a PE or DVT. No leg pain or swelling. No history of CHF per patient but her chart tells different. She states she never has good breathing but feels that has been worse for a few days. [facility] Medical History Anemia Anxiety and depression Asthma Asthma with COPD Atherosclerotic heart disease of [place] coronary artery without angina pectoris Back pain Bilateral pneumonia CHF (congestive heart failure) Chronic back pain Chronic respiratory failure Constipation COPD (chronic obstructive pulmonary disease) Depression Diabetes Flu vaccine need Former smoker Health care maintenance Heart disease Hepatitis History of constipation HLD (hyperlipidemia) Hypertension Lung disease On home oxygen therapy MARK (obstructive sleep apnea) Pneumonia Psoriasis Smoking greater than 40 pack years SOB (shortness of breath) Thyroid nodule Type 2 diabetes mellitus Home Medications Handicap Placard #1 ea 12/12/20 [Rx Last Taken Unknown] flash glucose scanning reader ([employer] Tanika [address] [place]) #1 ea 01/31/21 [Rx Last Taken Unknown] citalopram 40 mg tablet 40 mg PO QHS depression #90 tabs 07/23/21 [Rx Last Taken 08/08/21] insulin lispro 100 unit/mL subcutaneous pen (Humalog KwikPen (U-100) Insulin) 17unit (0.17 mL) subcut TID diabetes 3 months #45.9 mL 08/19/21 [Rx Last Taken Unknown] clopidogrel 75 mg tablet 75 mg PO DAILY #90 tabs 10/06/21 [Rx Last Taken Unknown] insulin glargine 100 unit/mL (3 mL) subcutaneous pen (Basaglar KwikPen U-100 Insulin) 36 unit subcut DAILY diabetic managment 10/12/21 [History Last Taken Unknown] isosorbide mononitrate 60 mg tablet,extended release 24 hr 60 mg PO DAILY BP 10/12/21 [History Last Taken Unknown] acetaminophen 500 mg tablet 500 mg PO QHS 10/21/21 [History Last Taken Unknown] bisacodyl 5 mg tablet,delayed release (Dulcolax (bisacodyl)) 5 mg PO QHS PRN constipation 30 days #30 tabs 11/13/21 [Rx Last Taken Unknown] atorvastatin 80 mg tablet 80 mg PO QHS #90 tabs 12/10/21 [Rx Last Taken Unknown] nitroglycerin 0.4 mg sublingual tablet 0.4 mg sublingual Q5-15M PRN Pain 01/20/22 [History Last Taken Unknown] ipratropium 0.5 mg-albuterol 3 mg (2.5 mg base)/3 mL nebulization soln 3 ml inhalation Q4H PRN PRN SOB &/OR WHEEZING #180 mL 02/11/22 [Rx Last Taken Unknown] pen needle, diabetic 32 gauge x " #50 ea 02/11/22 [Rx Last Taken Unknown] pantoprazole 40 mg tablet,delayed release 40 mg PO DAILY #90 tabs 04/24/22 [Rx Last Taken Unknown] tizanidine 2 mg tablet 2 mg PO HS PRN muscle spasticity #30 tabs 04/24/22 [Rx Last Taken Unknown] metoprolol tartrate 25 mg tablet 12.5 mg PO BID #90 tabs 05/04/22 [Rx Last Taken Unknown] losartan 25 mg tablet 25 mg PO DAILY #30 tabs 05/13/22 [Rx Last Taken Unknown] furosemide 20 mg tablet (Lasix) 20 mg PO DAILY #30 tabs 06/01/22 [Rx Last Taken Unknown] risperidone 1 mg tablet 1 mg PO QHS anxiety #90 tabs 06/01/22 [Rx Last Taken Unknown] lidocaine 5 % topical patch 2 patch topical DAILY #30 ea 06/03/22 [Rx Last Taken Unknown] albuterol sulfate 90 mcg/actuation aerosol inhaler 2 puff inhalation Q6H PRN shortness of breath or wheezing #18 grams 07/24/22 [Rx Last Taken Unknown] budesonide 1 mg/2 mL suspension for nebulization 1 mg (2 mL) inhalation BID #60 mL 08/13/22 [Rx Last Taken Unknown] flash glucose sensor ([employer] Tanika 2 Sensor kit) #2 ea 08/26/22 [Rx Last Taken Unknown] prednisone 10 mg tablet 10 mg PO DAILY #20 tabs 09/03/22 [Rx Last Taken Unknown] alprazolam 0.25 mg tablet 0.25 mg PO QHS #30 tabs 09/08/22 [Rx Last Taken Unknown] blood sugar diagnostic (True Metrix Glucose Test Strip) #100 ea 09/11/22 [Rx Last Taken Unknown] blood-glucose meter (True Metrix Glucose Meter) #1 ea 09/11/22 [Rx Last Taken Unknown] Allergy/AdvReac Type Severity Reaction Status Date / Time amoxicillin [Amoxicillin] Allergy Intermediate Rash Verified 09/23/22 18:49 hydrocodone Allergy Intermediate SWELLING Verified 09/23/22 18:49 gabapentin [From Neurontin] Allergy Shortness Verified 09/23/22 18:49 of breath levofloxacin [From Levaquin] Allergy Hives Verified 09/23/22 18:49 pseudoephedrine HCl Allergy Shortness Verified 09/23/22 18:49 [From Sudafed] of breath red dye Allergy Hives Verified 09/23/22 18:49 prednisone AdvReac Severe mean mood Verified 09/23/22 18:49 codeine AdvReac HEADACHE Verified 09/23/22 18:49 Family History Brother Heart disease Mother Colon cancer Heart disease Surgical History History of cholecystectomy History of coronary artery stent placement History of left heart catheterization (LHC) (~09/23/20) Hx of CABG Stented coronary artery (12/28/18) Social History Smoking Status: Former smoker pack-years: 40 how long ago did patient quit smokin year ago alcohol intake: never substance use type: does not use caffeine: Yes Type: carbonated beverages and tea what type of physical activity do you participate in: none ROS ROS ED Constitutional Constitutional ED: Reports chills and fever(s) Eyes Eyes: Denies change in vision ENT ENT ED: Denies rhinorrhea or sore throat Cardiovascular Cardiovascular: Reports chest pain; Denies palpitations or racing heartbeat Respiratory/Chest Respiratory/Chest: Reports cough, dyspnea and sputum Gastrointestinal Gastrointestinal: Denies nausea or vomiting Genitourinary Genitourinary ED: Denies dysuria Musculoskeletal Musculoskeletal: Denies myalgias Integumentary Denies rash Neurologic Neurologic: Denies headache(s) Psychiatric Psychiatric: Reports anxiety Endocrine Endocrinology: Denies polydipsia or polyuria Hematologic/Lymphatic Hematologic/Lymphatic: Denies easy bleeding or easy bruising Allergic/Immunologic Allergic/Immunologic ED: Denies urticaria EXAM Physical Exam Narrative Exam Narrative: Patient is sitting in bed. She is carrying on normal conversation. She is not toxic. Saturations are good. HEENT: Mucous membranes are moist Eyes: No significant injection. No icterus. Neck does show a thickened neck possibly due to steroid use a bit. Cannot ascertain JVD Lungs show poor air motion diffusely. No pain with a deep breath. But she doeshave some pain with palpation of lateral rib cage which is the area that hurts when she coughs. No subcu air. Heart is regular. I am not able to hear any murmur. However she does have difficult to hear heart tones with her breathing. Abdomen: Obese but nontender Extremities show no significant tenderness swelling or asymmetry. Neuro patient is alert oriented not at all sleepy or lethargic. Const Vital Signs: 09/23/22 18:46 09/23/22 18:53 09/23/22 19:14 Temperature 97 F L Temperature Source Temporal Pulse Rate 74 71 Respiratory Rate 16 22 H Respiratory Effort Short of Breath Blood Pressure 177/53 H 111/78 Blood Pressure Mean 94 89 Pulse Ox 100 99 Oxygen Delivery Method Nasal Cannula Nasal Cannula Oxygen Flow Rate (L/min) 4 4 09/23/22 19:51 09/23/22 22:06 09/23/22 20:30 Temperature Temperature Source Pulse Rate 65 75 77 Respiratory Rate 30 H 20 H 22 H Respiratory Effort Blood Pressure 159/77 H 107/61 Blood Pressure Mean 104 76 Pulse Ox 98 98 Oxygen Delivery Method Nasal Cannula Nasal Cannula Oxygen Flow Rate (L/min) 4 4 09/23/22 21:00 Temperature Temperature Source Pulse Rate 74 Respiratory Rate 30 H Respiratory Effort Blood Pressure 150/61 H Blood Pressure Mean 90 Pulse Ox 98 Oxygen Delivery Method Nasal Cannula Oxygen Flow Rate (L/min) 4 MDM MDM MDM Narrative Medical decision making narrative: My independent interpretation of the patient's single AP chest x-ray shows borderline cardiomegaly and possible small left effusion. But when I look at old films it does not look markedly different. Radiology reading shows possibleminimal left effusion and basilar atelectasis. Patient CBC shows normal white count. Minimally low hemoglobin. Platelets are normal. Sodium potassium are minimally low and should self correct. Renal function is normal. Glucose is mildly high at 196. Troponin is negative despite several days of symptoms. BNP is not notably elevated. Lactate is negative. Patient's had normal vitals her whole time here. She did get dyspneic once but she was hyperventilating and anxious. She was able to be talked through this and her symptoms resolved. She also feels as though she needs to belch. She tried drinking Coke that got a small burp and helped her somewhat but not completely. She states sometimes she will take omeprazole for this. I offered her pantoprazole which she accepted. She does have significant COPD. She may be having a mild exacerbation. She would prefer not to be on prednisone becauseshe states it makes her angry. I stated we can try a dose of [place]. Patientis not tachycardic tachypneic or hypoxic. She has pain with coughing. She has bilateral rib pain. This improves with a belch. I do not think she needs CTA of the chest. I think she is stable for discharge. Certainly she has significant disease and may worsen or develop new illness in the future. We diddiscuss reasons to return. Lab Data Attestation: I reviewed the patient's lab results. Labs: Laboratory Results - last 24 hr 09/23/22 09/23/22 09/23/22 19:30 19:30 19:30 WBC 10.2 RBC 3.97 L Hgb 11.8 L Hct 36.4 L MCV 91.7 MCH 29.7 MCHC 32.4 RDW Std Deviation 39.5 RDW Coeff of Malcom 11.7 Plt Count 273 MPV 11.4 Immature Gran % (Auto) 0.500 Neut % (Auto) 75.3 H Lymph % (Auto) 16.4 L Cooke % (Auto) 6.1 Eos % (Auto) 1.1 Baso % (Auto) 0.6 Absolute Neuts (auto) 7.7 Absolute Lymphs (auto) 1.66 Nucleated RBC % 0 Sodium 132 L Potassium 3.4 L Chloride 89 L Carbon Dioxide 32.0 Anion Gap 11 BUN 11 Creatinine 0.89 Estim Creat Clear Calc 45.85 Est GFR (MDRD) Af Amer 81 Est GFR (MDRD) Non-Af 67 BUN/Creatinine Ratio 12.4 Glucose 196 H Lactic Acid 1.4 Calcium 9.1 Troponin I High Sens 8 B-Natriuretic Peptide 09/23/22 19:30 WBC RBC Hgb Hct MCV MCH MCHC RDW Std Deviation RDW Coeff of Malcom Plt Count MPV Immature Gran % (Auto) Neut % (Auto) Lymph % (Auto) Cooke % (Auto) Eos % (Auto) Baso % (Auto) Absolute Neuts (auto) Absolute Lymphs (auto) Nucleated RBC % Sodium Potassium Chloride Carbon Dioxide Anion Gap BUN Creatinine Estim Creat Clear Calc Est GFR (MDRD) Af Amer Est GFR (MDRD) Non-Af BUN/Creatinine Ratio Glucose Lactic Acid Calcium Troponin I High Sens B-Natriuretic Peptide 105.9 H Radiography Diagnostic Testing: Clinical Impression(s) from Imaging Studies Chest X-Ray 09/23/22 20:25 IMPRESSION: Possible minimal left effusion and basilar atelectasis. Electronically Signed: Rojelio Quinonez DO at 21:16 EST , EKG Initial EKG: Comments: My independent interpretation of the EKG done for chest pain anddyspnea shows what is read as a accelerated junctional rhythm. However, I believe I do see a P wave with normal CO interval. Therefore this does appear to cruzito sinus rhythm. It is regular. There is a lot of baseline and motion artifact. I do not see any ectopy. Despite the artifact, I am seeing no consistent ST elevation or depression. CO interval, QRS duration and QTc look normal. Discharge Plan Triage Chief Complaint: Chest Pain ED Provider: Sandeep Fong Dx/Rx/DC Orders Clinical Impression: COPD exacerbation, History of chest pain Instructions: ED COPD Flare Prescriptions: No Action (DME) Jefferson Lozano See Rx Instructions .ROUTE .MEDSUPPLY Qty: 1 0RF Rx Instructions: As directed, length of time 3 years insulin lispro [Humalog KwikPen Insulin] 100 unit/mL insulin pen 17 unit SC TID 90 Days Qty: 45.9 3RF Rx Instructions: Hold if glucose less than 130 mg/dl lidocaine 5 % adhesive patch,medicated 2 patch topical DAILY Qty: 30 3RF Rx Instructions: leave on most painful area for up to 12 hrs tizanidine 2 mg tablet 2 mg PO HS PRN (Reason: muscle spasticity) Qty: 30 0RF pantoprazole 40 mg tablet,delayed release (DR/EC) 40 mg PO DAILY Qty: 90 1RF budesonide 1 mg/2 mL suspension for nebulization 1 mg inhalation BID Qty: 60 6RF prednisone 10 mg tablet 10 mg PO DAILY Qty: 20 0RF Rx Instructions: Take 4 tabs daily for 5 days insulin glargine [Basaglar KwikPen U-100 Insulin] 100 unit/mL (3 mL) insulin pen 36 unit subcut DAILY Rx Instructions: daily at bedtime isosorbide mononitrate 60 mg tablet extended release 24 hr 60 mg PO DAILY acetaminophen 500 MG tablet 500 mg PO QHS Rx Instructions: over the counter. no prescription required. nitroglycerin 0.4 mg tablet, sublingual 0.4 mg SUBLINGUAL Q5-15M PRN (Reason: Pain) (DME) FreeStyle Tanika 2 [place] [facility] [place] See Rx Instructions .ROUTE .MEDSUPPLY Qty: 1 0RF Rx Instructions: As directed citalopram 40 mg tablet 40 mg PO QHS Qty: 90 1RF clopidogrel 75 mg tablet 75 mg PO DAILY Qty: 90 3RF bisacodyl [Dulcolax (bisacodyl)] 5 mg tablet,delayed release (DR/EC) 5 mg PO QHS PRN (Reason: constipation) 30 Days Qty: 30 3RF atorvastatin 80 mg tablet 80 mg PO QHS Qty: 90 3RF ipratropium-albuterol 0.5 mg-3 mg(2.5 mg base)/3 mL solution for nebulization 3 ml INHALATION Q4H PRN PRN (Reason: SOB &/OR WHEEZING) Qty: 180 6RF (DME) pen needle, diabetic 32 gauge x 5/32" needle See Rx Instructions .ROUTE .MEDSUPPLY Qty: 50 0RF Rx Instructions: 4x/day metoprolol tartrate 25 mg tablet 12.5 mg PO BID Qty: 90 3RF Rx Instructions: losartan 25 mg tablet 25 mg PO DAILY Qty: 30 11RF furosemide [Lasix] 20 mg tablet 20 mg PO DAILY Qty: 30 11RF risperidone 1 mg tablet 1 mg PO QHS Qty: 90 1RF albuterol sulfate 90 mcg/actuation HFA aerosol inhaler 2 puff INHALATION Q6H PRN (Reason: shortness of breath or wheezing) Qty: 18 3RF (DME) FreeStyle Tanika 2 Sensor Kit See Rx Instructions .ROUTE .MEDSUPPLY Qty: 2 3RF Rx Instructions: As directed alprazolam 0.25 mg tablet 0.25 mg PO QHS Qty: 30 0RF (DME) blood-glucose meter [True Metrix Glucose Meter] Misc See Rx Instructions .Route Qty: 1 0RF Rx Instructions: As directed (DME) True Metrix Glucose Test Strip Strip See Rx Instructions .Route Qty: 100 7RF Rx Instructions: tid Primary Care Provider: Billy Madera Referrals: Billy Madera MD [Primary Care Provider] - 3-5 Days if not improving Disposition Disposition: Home, Self Care What to do if you have Problems For any increased pain, shortness of breath, bleeding, nausea or vomiting, chestpain, or any unexpected problems, contact your Primary Care Provider. Call [facility] ([phone]) or report to the closest Emergency Room. Call 911 if necessary. 09/23/222226 <Electronically signed by Sandeep Fong MD> Cosigner Signature (if applicable): CC: Dr. Billy Madera MD ~ Signed [facility] Work Phone: Discharge summary Author Kimberly Armstrong [facility] May 30, 2023 11:16am Note Date/Time May 30, 2023 1 1:16am [facility] Medical Records Department [address] [place] [id number] Instructions for Home/Discharge Instructions 05/30/23 1116 MR#: [id number] Acct: [id number] Name: JEANNA VARGAS Rep #:[id number] : 1950 72 From: Kimberly Armstrong MD PCP: Dr. Billy Madera MD Status:A DM IN Discharge Instructions Diet Discharge Diet: Low fat / Low cholesterol Activity Discharge Activity: Return to Normal Activity Weight Bearing Status: Weight bearing as tolerated Dressing / Incision Call your doctor if you observe: Fever of 101 or Higher, Shortness of breath, Dizziness, Swelling in the ankles and Chest pain Follow Up Care Test Results: Test results from this visit will be discussed in further detail at your follow- up appointment, if applicable. Discharge Plan Admission Admit Date/Time: 05/29/23 01:22 Primary Reason for Your Visit: COPD exacerbation, pneumonia Attending Provider: Kimberly Armstrong Primary Care Provider: Billy Madera Consulting Providers: Nico Sweet Instructions Patient Instructions: COPD Meds Discharge Orders/Prescriptions Prescriptions: New doxycycline hyclate 100 mg tablet 100 mg PO BID Qty: 10 0RF prednisone 20 mg tablet 40 mg PO DAILY Qty: 10 0RF Continued (DME) Handicap Placard See Rx Instructions .ROUTE .MEDSUPPLY Qty: 1 0RF Rx Instructions: As directed, length of time 3 years citalopram 40 mg tablet 40 mg PO QHS Qty: 90 3RF (DME) cane Device See Rx Instructions .Route Qty: 1 0RF Rx Instructions: As directed pantoprazole 40 mg tablet,delayed release (DR/EC) 40 mg PO BID Qty: 180 2RF isosorbide mononitrate 60 mg tablet extended release 24 hr 60 mg PO DAILY Qty: 90 3RF nitroglycerin 0.4 mg tablet, sublingual 0.4 mg SUBLINGUAL Q5-15M PRN (Reason: Pain) Qty: 30 0RF atorvastatin 80 mg tablet 80 mg PO QHS clopidogrel 75 mg tablet 75 mg PO DAILY losartan 25 mg tablet 25 mg PO DAILY furosemide [Lasix] 20 mg tablet 20 mg PO DAILY metoprolol tartrate 25 mg tablet 12.5 mg PO BID Rx Instructions: sucralfate [Carafate] 1 gram tablet 1 g PO TID PRN (Reason: acid reflux) Qty: 20 0RF ondansetron HCl 4 mg tablet 4 mg PO Q6H PRN (Reason: nausea and vomiting) Qty: 14 0RF potassium chloride 20 mEq tablet extended release 20 meq PO DAILY Qty: 3 0RF bisacodyl [Dulcolax (bisacodyl)] 5 mg tablet,delayed release (DR/EC) 5 mg PO QHS PRN (Reason: constipation) 30 Days Qty: 30 3RF (DME) pen needle, diabetic 32 gauge x 5/32" needle See Rx Instructions .ROUTE .MEDSUPPLY Qty: 50 0RF Rx Instructions: 4x/day (DME) blood-glucose meter [True Metrix Glucose Meter] Misc See Rx Instructions .Route Qty: 1 0RF Rx Instructions: As directed (DME) True Metrix Glucose Test Strip Strip See Rx Instructions .Route Qty: 100 7RF Rx Instructions: tid albuterol sulfate 90 mcg/actuation HFA aerosol inhaler 2 puff INHALATION Q6H PRN (Reason: shortness of breath or wheezing) Qty: 18 3RF ipratropium-albuterol 0.5 mg-3 mg(2.5 mg base)/3 mL solution for nebulization 3 ml INHALATION Q4H PRN PRN (Reason: SOB &/OR WHEEZING) Qty: 180 6RF risperidone 1 mg tablet 1 mg PO QHS Qty: 90 1RF (DME) FreeStyle Tanika 2 Sensor Kit See Rx Instructions .ROUTE .MEDSUPPLY Qty: 2 3RF Rx Instructions: As directed (DME) FreeStyle Tanika 2 [place] Misc See Rx Instructions .ROUTE .MEDSUPPLY Qty: 1 0RF Rx Instructions: As directed insulin lispro [Humalog KwikPen Insulin] 100 unit/mL insulin pen 20 unit SC TID Qty: 72 3RF Rx Instructions: Hold if glucose less than 130 mg/dl insulin glargine [Basaglar KwikPen U-100 Insulin] 100 unit/mL (3 mL) insulin pen 36 unit subcut DAILY Qty: 42 3RF Rx Instructions: daily at bedtime alprazolam 0.25 mg tablet 0.25 mg PO QHS Qty: 30 0RF Referrals / Follow Up: Billy Madera MD [Primary Care Provider] - Within 2 Weeks Disposition Disposition (needs filled in before D/C Order can be placed): Home, Self Care 05/30/23 1116<Electronically signed by Kimberly Armstrong MD>Kimberly Armstrong MD CC: Dr. Billy Madera MD; Dr. Nico Sweet MD ~ Signed [facility] Work Phone: Evaluation note* Diagnosis Onset Date Resolution Status Acute bronchitis acute COPD (chronic obstructive pulmonary disease) acute CHF (congestive heart failure) chronic Hypertension chronic Acute and chronic respiratory failure with hypoxia resolved COPD exacerbation resolved Elevated troponin acute Flash pulmonary edema acute Heart palpitations acute CHF (congestive heart failure) chronic Dermatomyositis chronic Acute and chronic respiratory failure with hypoxia resolved Hypertension chronic Acute and chronic respiratory failure with hypoxia resolved Constipation resolved Pneumonia acute CHF (congestive heart failure) chronic Acute and chronic respiratory failure with hypoxia resolved Constipation resolved Respiratory failure, acute r esolved COPD (chronic obstructive pulmonary disease) acute Pneumonia acute Shortness of breath acute Acute and chronic respiratory failure with hypoxia resolved COPD (chronic obstructive pulmonary disease) acute CHF (congestive heart failure) chronic Acute and chronic respiratory failure with hypoxia resolved [facility] Work Phone: Evaluation note* Diagnosis Onset Date Resolution Status Acute bronchitis acute COPD (chronic obstructive pulmonary disease) acute CHF (congestive heart failure) chronic Chronic respiratory failure chronic Chronic respiratory failure chronic Hypertension chronic Acute and chronic respiratory failure with hypoxia resolved COPD exacerbation resolved Elevated troponin acute Flash pulmonary edema acute Heart palpitations acute CHF (congestive heart failure) chronic Dermatomyositis chronic Acute and chronic respiratory failure with hypoxia resolved Hypertension chronic Acute and chronic respiratory failure with hypoxia resolved Constipation resolved Pneumonia acute CHF (congestive heart failure) chronic Acute and chronic respiratory failure with hypoxia resolved Constipation resolved Respiratory failure, acute r esolved COPD (chronic obstructive pulmonary disease) acute Pneumonia acute Shortness of breath acute Acute and chronic respiratory failure with hypoxia resolved COPD (chronic obstructive pulmonary disease) acute CHF (congestive heart failure) chronic Acute and chronic respiratory failure with hypoxia resolved Fatigue acute HLD (hyperlipidemia) acute 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 CHF (congestive heart failure) chronic Hypertension chronic Thyroid nodule acute Anemia chronic Chronic respiratory failure chronic Generalized anxiety disorder chronic Diabetes chronic Hypertension chronic Obesity [facility] Work Phone: Evaluation note* Diagnosis Onset Date Resolution Status Elevated troponin acute Flash pulmonary edema acute Heart palpitations acute CHF (congestive heart failure) chronic Dermatomyositis chronic Acute and chronic respiratory failure with hypoxia resolved Hypertension chronic Acute and chronic respiratory failure with hypoxia resolved Constipation resolved Pneumonia acute CHF (congestive heart failure) chronic Acute and chronic respiratory failure with hypoxia resolved Constipation resolved Respiratory failure, acute r esolved COPD (chronic obstructive pulmonary disease) acute Pneumonia acute Shortness of breath acute Acute and chronic respiratory failure with hypoxia resolved COPD (chronic obstructive pulmonary disease) acute CHF (congestive heart failure) chronic Acute and chronic respiratory failure with hypoxia resolved HLD (hyperlipidemia) acute 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 CHF (congestive heart failure) chronic Fatigue chronic Hypertension chronic Thyroid nodule acute Anemia chronic Chronic respiratory failure chronic Generalized anxiety disorder chronic Diabetes chronic Hypertension chronic Obesity chronic Chronic respiratory failure chronic Fatigue chronic Generalized anxiety disorder chronic Hypertension chronic COPD (chronic obstructive pulmonary disease) acute CHF (congestive heart failure) chronic Chronic respiratory failure [facility] Work Phone: Evaluation note* Diagnosis Onset Date Resolution Status Hypertension chronic Acute and chronic respiratory failure with hypoxia resolved Constipation resolved Pneumonia acute CHF (congestive heart failure) chronic Acute and chronic respiratory failure with hypoxia resolved Constipation resolved Respiratory failure, acute r esolved COPD (chronic obstructive pulmonary disease) acute Pneumonia acute Shortness of breath acute Acute and chronic respiratory failure with hypoxia resolved COPD (chronic obstructive pulmonary disease) acute CHF (congestive heart failure) chronic Acute and chronic respiratory failure with hypoxia resolved HLD (hyperlipidemia) acute 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 CHF (congestive heart failure) chronic Fatigue chronic Hypertension chronic Thyroid nodule acute Anemia chronic Chronic respiratory failure chronic Generalized anxiety disorder chronic Diabetes chronic Hypertension chronic Obesity chronic Chronic respiratory failure chronic Fatigue chronic Generalized anxiety disorder chronic Hypertension chronic COPD (chronic obstructive pulmonary disease) acute CHF (congestive heart failure) chronic Chronic respiratory failure [facility] Work Phone: Evaluation note* Diagnosis Onset Date Resolution Status Pneumonia acute CHF (congestive heart failure) chronic Acute and chronic respiratory failure with hypoxia resolved Constipation resolved Respiratory failure, acute r esolved COPD (chronic obstructive pulmonary disease) acute Pneumonia acute Shortness of breath acute Acute and chronic respiratory failure with hypoxia resolved COPD (chronic obstructive pulmonary disease) acute CHF (congestive heart failure) chronic Acute and chronic respiratory failure with hypoxia resolved HLD (hyperlipidemia) acute 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 CHF (congestive heart failure) chronic Fatigue chronic Hypertension chronic Thyroid nodule acute Anemia chronic Chronic respiratory failure chronic Generalized anxiety disorder chronic Diabetes chronic Hypertension chronic Obesity chronic Chronic respiratory failure chronic Fatigue chronic Generalized anxiety disorder chronic Hypertension chronic COPD (chronic obstructive pulmonary disease) acute CHF (congestive heart failure) chronic Chronic respiratory failure chronic Diabetes [facility] Work Phone: Evaluation note* Diagnosis Onset Date Resolution Status Chronic respiratory failure chronic Fatigue chronic Generalized anxiety disorder chronic Hypertension chronic COPD (chronic obstructive pulmonary disease) acute CHF (congestive heart failure) chronic Chronic respiratory failure chronic Diabetes chronic Back pain acute Anxiety and depression chron ic Chronic respiratory failure chronic Hypertension [facility] Work Phone: Evaluation note* Diagnosis Onset Date Resolution Status Back pain acute Anxiety and depression chron ic Chronic respiratory failure chronic Hypertension chronic Muscle spasm noneactive Muscle strain of right gluteal region noneactive [facility] Work Phone: Evaluation note* Diagnosis Onset Date Resolution Status Muscle spasm noneactive Muscle strain of right gluteal region noneactive Flu vaccine need acute Chronic back pain chronic Hypertension chronic Muscular dystrophy chronic Type 2 diabetes mellitus chr [facility] Work Phone: Evaluation note* Diagnosis Onset Date Resolution Status Flu vaccine need acute Chronic back pain chronic Hypertension chronic Muscular dystrophy chronic Type 2 diabetes mellitus chr onic Sore throat acute COPD (chronic obstructive pulmonary disease) chronic Chest congestion noneactive [facility] Work Phone: Evaluation note* Diagnosis Onset Date Resolution Status Flu vaccine need acute Chronic back pain chronic Hypertension chronic Muscular dystrophy chronic Type 2 diabetes mellitus chr onic Sore throat acute COPD (chronic obstructive pulmonary disease) chronic Chest congestion noneactive Chronic back pain chronic Pneumonia noneactive Pneumonia acute CHF (congestive heart failure) chronic COPD (chronic obstructive pulmonary disease) [facility] Work Phone: Evaluation note* Diagnosis Onset Date Resolution Status Sore throat acute COPD (chronic obstructive pulmonary disease) chronic Chest congestion noneactive Chronic back pain chronic Pneumonia noneactive Pneumonia acute CHF (congestive heart failure) chronic COPD (chronic obstructive pulmonary disease) [facility] Work Phone: Evaluation note* Diagnosis Onset Date Resolution Status Sore throat acute COPD (chronic obstructive pulmonary disease) chronic Chest congestion noneactive Chronic back pain chronic Pneumonia noneactive Pneumonia acute CHF (congestive heart failure) chronic COPD (chronic obstructive pulmonary disease) chronic Smoking greater than 40 pack years acute Chronic respiratory failure chronic COPD (chronic obstructive pulmonary disease) chronic Obesity chronic Debility acute Anxiety and depression chron ic Fatigue chronic Hypertension chronic Type 2 diabetes mellitus [facility] Work Phone: evaluation note* Diagnosis Onset Date Resolution Status Chronic back pain chronic Pneumonia noneactive Pneumonia acute CHF (congestive heart failure) chronic COPD (chronic obstructive pulmonary disease) chronic Smoking greater than 40 pack years acute Chronic respiratory failure chronic COPD (chronic obstructive pulmonary disease) chronic Obesity chronic Debility acute Anxiety and depression chron ic Fatigue chronic Hypertension chronic Type 2 diabetes mellitus chr onic Elevated TSH chronic Obesity chronic Type 2 diabetes mellitus [facility] Work Phone: Evaluation note* Diagnosis Onset Date Resolution Status Smoking greater than 40 pack years acute Chronic respiratory failure chronic Obesity chronic Debility acute Anxiety and depression chron ic Fatigue chronic Hypertension chronic Type 2 diabetes mellitus chr onic Elevated TSH chronic Obesity chronic Type 2 diabetes mellitus chr onic Flu vaccine need acute Smoking greater than 40 pack years acute Obesity chronic Type 2 diabetes mellitus [facility] Work Phone: Evaluation note* Diagnosis Onset Date Resolution Status Smoking greater than 40 pack years acute Chronic respiratory failure chronic Obesity chronic Debility acute Anxiety and depression chron ic Fatigue chronic Hypertension chronic Type 2 diabetes mellitus chr onic Elevated TSH chronic Obesity chronic Type 2 diabetes mellitus chr onic Flu vaccine need acute Smoking greater than 40 pack years acute Obesity chronic Type 2 diabetes mellitus [facility] Community acquired pneumonia acute Community acquired pneumonia acute Pneumonia acute Shortness of breath acute COPD with acute exacerbation chronic Obesity [facility] Work Phone: Evaluation note* Diagnosis Onset Date Resolution Status Smoking greater than 40 pack years acute Chronic respiratory failure chronic Obesity chronic Debility acute Anxiety and depression chron ic Fatigue chronic Hypertension chronic Type 2 diabetes mellitus chr onic Elevated TSH chronic Type 2 diabetes mellitus chr onic Flu vaccine need acute Smoking greater than 40 pack years acute Type 2 diabetes mellitus chr onic Community acquired pneumonia acute Community acquired pneumonia acute COPD with acute exacerbation resolved Shortness of breath resolved Community acquired pneumonia acute Anxiety and depression chron ic Cough chronic Hypertension chronic Type 2 diabetes mellitus [address] onic [facility] Work Phone: Evaluation note* Diagnosis Onset Date Resolution Status Elevated TSH chronic Type 2 diabetes mellitus chr onic Flu vaccine need acute Smoking greater than 40 pack years acute Type 2 diabetes mellitus chr onic Community acquired pneumonia acute Community acquired pneumonia acute COPD with acute exacerbation resolved Shortness of breath resolved Community acquired pneumonia acute Anxiety and depression chron ic Cough chronic Hypertension chronic Type 2 diabetes mellitus chr onic HLD (hyperlipidemia) acute CHF (congestive heart failure) chronic Hypertension chronic Synovial cyst of popliteal space [Desai], left knee noneactive Pain of left calf noneactive [facility] Work Phone: Evaluation note* Diagnosis Onset Date Resolution Status Flu vaccine need acute Smoking greater than 40 pack years acute Type 2 diabetes mellitus chr onic Community acquired pneumonia acute Community acquired pneumonia acute COPD with acute exacerbation resolved Shortness of breath resolved Community acquired pneumonia acute Anxiety and depression chron ic Cough chronic Hypertension chronic Type 2 diabetes mellitus chr onic HLD (hyperlipidemia) acute CHF (congestive heart failure) chronic Hypertension chronic Synovial cyst of popliteal space [Desai], left knee noneactive Pain of left calf noneactive Synovial cyst of popliteal space [Desai], left knee noneactive Pain of left calf noneactive Contact with or suspected ex posure to other viral communicable disease acute [facility] Work Phone: Evaluation note* Diagnosis Onset Date Resolution Status Community acquired pneumonia acute Anxiety and depression chron ic Cough chronic Hypertension chronic Type 2 diabetes mellitus chr onic HLD (hyperlipidemia) acute CHF (congestive heart failure) chronic Hypertension chronic Synovial cyst of popliteal space [Desai], left knee noneactive Pain of left calf noneactive Synovial cyst of popliteal space [Desai], left knee noneactive Pain of left calf noneactive Contact with or suspected ex posure to other viral communicable disease acute Synovial cyst of popliteal space [Desai], left knee noneactive Pain of left calf noneactive Flu vaccine need acute Abdominal pain, epigastric c hronic Anxiety and depression chron ic Chronic respiratory failure chronic Hypertension chronic Type 2 diabetes mellitus chr onic Acidosis, lactic acute Bilateral pneumonia acute Failure of outpatient treatment acute Acute exacerbation of chroni c obstructive pulmonary disease [facility] Work Phone: Evaluation note* Diagnosis Onset Date Resolution Status Community acquired pneumonia acute Anxiety and depression chron ic Cough chronic Hypertension chronic Type 2 diabetes mellitus chr onic HLD (hyperlipidemia) acute CHF (congestive heart failure) chronic Hypertension chronic Synovial cyst of popliteal space [Desai], left knee noneactive Pain of left calf noneactive Synovial cyst of popliteal space [Desai], left knee noneactive Pain of left calf noneactive Contact with or suspected ex posure to other viral communicable disease acute Synovial cyst of popliteal space [Dseai], left knee noneactive Pain of left calf noneactive Flu vaccine need acute Abdominal pain, epigastric c hronic Anxiety and depression chron ic Chronic respiratory failure chronic Hypertension chronic Type 2 diabetes mellitus chr onic Acidosis, lactic acute Bilateral pneumonia acute Failure of outpatient treatment acute Acute exacerbation of chroni c obstructive pulmonary disease chronic Anaphylaxis acute Atrial fibrillation with rapid ventricular response acute Cardiac arrest with pulseless electrical activity acute Endotracheally intubated acu te History of CAD (coronary artery disease) acute History of diabetes mellitus acute Respiratory failure acute COPD exacerbation [facility] Work Phone: Evaluation note* Diagnosis Onset Date Resolution Status Community acquired pneumonia acute Anxiety and depression chron ic Cough chronic Hypertension chronic Type 2 diabetes mellitus chr onic HLD (hyperlipidemia) acute CHF (congestive heart failure) chronic Hypertension chronic Synovial cyst of popliteal space [Desai], left knee noneactive Pain of left calf noneactive Synovial cyst of popliteal space [Desai], left knee noneactive Pain of left calf noneactive Contact with or suspected ex posure to other viral communicable disease acute Synovial cyst of popliteal space [Desai], left knee noneactive Pain of left calf noneactive Flu vaccine need acute Abdominal pain, epigastric c hronic Anxiety and depression chron ic Chronic respiratory failure chronic Hypertension chronic Type 2 diabetes mellitus chr onic Acidosis, lactic resolved Acute exacerbation of chroni c obstructive pulmonary disease resolved Failure of outpatient treatment resolved Anaphylaxis acute Atrial fibrillation with rapid ventricular response acute Cardiac arrest with pulseless electrical activity acute Cardiopulmonary arrest with successful resuscitation acute Endotracheally intubated acu te History of CAD (coronary artery disease) acute History of diabetes mellitus acute Respiratory failure acute COPD exacerbation chronic [facility] Work Phone: Evaluation note* Diagnosis Onset Date Resolution Status Synovial cyst of popliteal space [Desai], left knee noneactive Pain of left calf noneactive Contact with or suspected ex posure to other viral communicable disease acute Synovial cyst of popliteal space [Desai], left knee noneactive Pain of left calf noneactive Flu vaccine need acute Abdominal pain, epigastric c hronic Anxiety and depression chron ic Chronic respiratory failure chronic Hypertension chronic Type 2 diabetes mellitus chr onic Acidosis, lactic resolved Acute exacerbation of chroni c obstructive pulmonary disease resolved Failure of outpatient treatment resolved Cardiopulmonary arrest with successful resuscitation acute History of CAD (coronary artery disease) acute History of diabetes mellitus acute Anaphylaxis resolved Atrial fibrillation with rapid ventricular response resolved Cardiac arrest with pulseless electrical activity resolved Respiratory failure resolved Asthma with COPD chronic Chronic respiratory failure chronic Smoking greater than 40 pack years [facility] Work Phone: Evaluation note* Diagnosis Onset Date Resolution Status Synovial cyst of popliteal space [Desai], left knee noneactive Pain of left calf noneactive Flu vaccine need acute Abdominal pain, epigastric c hronic Anxiety and depression chron ic Chronic respiratory failure chronic Hypertension chronic Type 2 diabetes mellitus chr onic Acidosis, lactic resolved Acute exacerbation of chroni c obstructive pulmonary disease resolved Failure of outpatient treatment resolved Cardiopulmonary arrest with successful resuscitation acute History of CAD (coronary artery disease) acute History of diabetes mellitus acute Anaphylaxis resolved Atrial fibrillation with rapid ventricular response resolved Cardiac arrest with pulseless electrical activity resolved Respiratory failure resolved Asthma with COPD chronic Chronic respiratory failure chronic Smoking greater than 40 pack years chronic HLD (hyperlipidemia) acute CHF (congestive heart failure) chronic Hypertension chronic Acute dyspnea acute Hyponatremia acute Left lower lobe pneumonia ac [place] RSV infection acute Acute exacerbation of chroni c obstructive pulmonary disease (COPD) chronic Chronic hypoxemic respiratory failure [facility] Work Phone: Evaluation note* Diagnosis Onset Date Resolution Status Synovial cyst of popliteal space [Desai], left knee noneactive Pain of left calf noneactive Flu vaccine need acute Abdominal pain, epigastric c hronic Anxiety and depression chron ic Chronic respiratory failure chronic Hypertension chronic Type 2 diabetes mellitus chr onic Acidosis, lactic resolved Acute exacerbation of chroni c obstructive pulmonary disease resolved Failure of outpatient treatment resolved Cardiopulmonary arrest with successful resuscitation acute History of CAD (coronary artery disease) acute History of diabetes mellitus acute Anaphylaxis resolved Atrial fibrillation with rapid ventricular response resolved Cardiac arrest with pulseless electrical activity resolved Respiratory failure resolved Asthma with COPD chronic Chronic respiratory failure chronic Smoking greater than 40 pack years chronic HLD (hyperlipidemia) acute CHF (congestive heart failure) chronic Hypertension chronic Chronic hypoxemic respiratory failure chronic Acute dyspnea resolved Acute exacerbation of chroni c obstructive pulmonary disease (COPD) resolved Hyponatremia resolved Left lower lobe pneumonia re solved RSV infection resolved [facility] Work Phone: Evaluation note* Diagnosis Onset Date Resolution Status Asthma with COPD chronic Chronic respiratory failure chronic Smoking greater than 40 pack years chronic HLD (hyperlipidemia) acute CHF (congestive heart failure) chronic Hypertension chronic Chronic hypoxemic respiratory failure chronic Acute dyspnea resolved Acute exacerbation of chroni c obstructive pulmonary disease (COPD) resolved Hyponatremia resolved Left lower lobe pneumonia re solved RSV infection resolved [facility] Work Phone: Evaluation note* Diagnosis Onset Date Resolution Status HLD (hyperlipidemia) acute CHF (congestive heart failure) chronic Hypertension chronic Chronic hypoxemic respiratory failure chronic Acute dyspnea resolved Acute exacerbation of chroni c obstructive pulmonary disease (COPD) resolved Hyponatremia resolved Left lower lobe pneumonia re solved RSV infection resolved [facility] Work Phone: Evaluation note* Diagnosis Nontoxic multinodular goiter- Primary Dysphagia, unspecified type Hoarseness of voice Dysphonia documented in this [facility] Author Nico Sweet [facility] May 31, 2023 12:45am Note Date/Time May 30, 2023 1 0:59pm [facility] Medical Records Department [address] [place] [id number] H&P Exam - Hospitalist 05/30/23 2256 MR#: [id number] Acct: [id number] Name: JEANNA VARGAS Rep #:[id number] : 1950 72 From: [place] PCP: Dr. Billy Madera MD Status:A DM IN Location: ICU ICU01-1 HPI - General General Date of Admission: 05/30/23 Date of Service: 05/30/23 Chief Complaint: Shortness of breath, hypoxia, increased oxygen requirement. CODE BLUE after CTPA HPI Narrative JEANNA VARGAS, is a 72 F who was discharged today in the morning then went home breathing on baseline 4 L of oxygen. In the evening tonight, her pulse ox dropped to 80s on 4 L of oxygen. She was brought by EMS for difficulty breathing getting worse and EMS put on a nonrebreather 12 L of oxygen and brought to ED.Prior to that she was admitted on 05/29/2023 and discharged today after COPD exacerbation from pneumonia and discharged on doxycycline and prednisone. EMS vitals shows blood pressure 226/96 respiratory rate 26 and heart rate 132/min.Blood pressure was elevated during previous admission too. ED course: In ED, her blood pressure was initially high 193/91, respiratory rate 29/min. She was given IV Solu-Medrol and COPD treatment therefore oxygen requirement came down to baseline 4 L and blood pressure was normalized. Then she was sent for CTPA for elevated D-dimer 0.72. Age-adjusted D-dimer 0.71. During CT scan patient became more short of breath and her saturation dropped hebecame respiratory rate and started on umbo bagging. Then she started breathingand no palpable pulses therefore CODE BLUE was called and CPR was started. During CPR rhythm was PEA, 3 doses of epinephrine was given and lasted for about14 minutes with ROSC. She was intubated during code and started on propofol drip. Billings catheter and OG was inserted. I ordered for fentanyl drip. As per the ER physician there is suspicion of anaphylactic reaction but she did not had prior history of contrast and she also got Solu-Medrol prior to that andshe will also need steroid during recent admission. In ED also she was tachycardic and went into A-fib probably due to epinephrine given during CODE BLUE. ED physician also noticed swelling of tongue and redness of his skin during CODE BLUE message significantly improved later in the ER. She was converted with 300 J in ER to sinus rhythm. Patient is further admitted in ICU for further care and evaluation [facility] Medical History Anemia Anxiety and depression Asthma with COPD Atherosclerotic heart disease of [place] coronary artery without angina pectoris Back pain Chest pain Chronic back pain Chronic respiratory failure COPD (chronic obstructive pulmonary disease) Diastolic CHF Former smoker Hepatitis HLD (hyperlipidemia) Hypertension Morbid obesity Obesity MARK treated with BiPAP Psoriasis Smoking greater than 40 pack years Thyroid nodule Type 2 diabetes mellitus Home Medications Handicap Joshuaard #1 ea 12/12/20 [Rx Last Taken Unknown] bisacodyl 5 mg tablet,delayed release (Dulcolax (bisacodyl)) 5 mg PO QHS PRN constipation 30 days #30 tabs 11/13/21 [Rx Last Taken Unknown] pen needle, diabetic 32 gauge x 32" #50 ea 02/11/22 [Rx Last Taken Unknown] blood sugar diagnostic (True Metrix Glucose Test Strip) #100 ea 09/11/22 [Rx Last Taken Unknown] blood-glucose meter (True Metrix Glucose Meter) #1 ea 09/11/22 [Rx Last Taken Unknown] albuterol sulfate 90 mcg/actuation aerosol inhaler 2 puff inhalation Q6H PRN shortness of breath or wheezing #18 grams 11/06/22 [Rx Last Taken Unknown] ipratropium 0.5 mg-albuterol 3 mg (2.5 mg base)/3 mL nebulization soln 3 ml inhalation Q4H PRN PRN SOB &/OR WHEEZING #180 mL 11/10/22 [Rx Last Taken Unknown] cane #1 ea 11/16/22 [Rx Last Taken Unknown] citalopram 40 mg tablet 40 mg PO QHS depression #90 tabs 11/16/22 [Rx Last Taken Unknown] risperidone 1 mg tablet 1 mg PO QHS anxiety #90 tabs 12/07/22 [Rx Last Taken Unknown] isosorbide mononitrate 60 mg tablet,extended release 24 hr 60 mg PO DAILY BP #90tabs 12/26/22 [Rx Last Taken Unknown] nitroglycerin 0.4 mg sublingual tablet 0.4 mg sublingual Q5-15M PRN Pain #30 tabs 12/26/22 [Rx Last Taken Unknown] flash glucose sensor ([employer]Style Tanika 2 Sensor kit) #2 ea 01/06/23 [Rx Last Taken Unknown] atorvastatin 80 mg tablet 80 mg PO QHS cholesterol 01/26/23 [History Last Taken Unknown] clopidogrel 75 mg tablet 75 mg PO DAILY blood thinner 01/26/23 [History Last Taken Unknown] furosemide 20 mg tablet (Lasix) 20 mg PO DAILY diuretic 01/26/23 [History Last Taken Unknown] losartan 25 mg tablet 25 mg PO DAILY blood pressure 01/26/23 [History Last Taken Unknown] metoprolol tartrate 25 mg tablet 12.5 mg PO BID blood pressure 01/26/23 [History Last Taken Unknown] flash glucose scanning reader ([employer] Tanika 2 [place]) #1 ea 03/23/23 [Rx Last Taken Unknown] ondansetron HCl 4 mg tablet 4 mg PO Q6H PRN nausea and vomiting #14 tabs 04/16/23 [Rx Last Taken Unknown] sucralfate 1 gram tablet (Carafate) 1 g PO TID PRN acid reflux #20 tabs 04/16/23[Rx Last Taken Unknown] insulin glargine 100 unit/mL (3 mL) subcutaneous pen (Basaglar KwikPen U-100 Insulin) 36 unit (0.36 mL) subcut DAILY diabetic managment #42 mL 05/06/23 [Rx Last Taken Unknown] insulin lispro 100 unit/mL subcutaneous pen (Humalog KwikPen (U-100) Insulin) 20unit (0.2 mL) subcut TID diabetes #72 mL 05/06/23 [Rx Last Taken Unknown] alprazolam 0.25 mg tablet 0.25 mg PO QHS anxiety #30 tabs 05/12/23 [Rx Last Taken Unknown] pantoprazole 40 mg tablet,delayed release 40 mg PO BID stomach #180 tabs 05/20/23 [Rx Last Taken Unknown] potassium chloride 20 mEq tablet,extended release 20 meq PO DAILY #3 tabs 05/25/23 [Rx Last Taken Unknown] doxycycline hyclate 100 mg tablet 100 mg PO BID #10 tabs 05/30/23 [Rx Last Taken Unknown] prednisone 20 mg tablet 40 mg (2 x 20 mg) PO DAILY #10 tabs 05/30/23 [Rx Last Taken Unknown] Allergy/AdvReac Type Severity Reaction Status Date / Time amoxicillin [Amoxicillin] Allergy Intermediate Rash Verified 05/28/23 22:22 hydrocodone Allergy Intermediate SWELLING Verified 05/28/23 22:22 gabapentin [From Neurontin] Allergy Shortness Verified 05/28/23 22:22 of breath levofloxacin [From Levaquin] Allergy Hives Verified 05/28/23 22:22 pseudoephedrine HCl Allergy Shortness Verified 05/28/23 22:22 [From Sudafed] of breath red dye Allergy Hives Verified 05/28/23 22:22 prednisone AdvReac Severe mean mood Verified 05/28/23 22:22 clonazepam [From Klonopin] AdvReac Depression Verified 05/28/23 22:22 codeine AdvReac HEADACHE Verified 05/28/23 22:22 Family History Brother Heart disease Mother Colon cancer Heart disease Surgical History History of cholecystectomy History of left heart catheterization (LHC) (~09/23/20) Stented coronary artery (12/28/18) Social History Smoking Status: Former smoker pack-years: 40 how long ago did patient quit smokin year ago alcohol intake: never substance use type: does not use caffeine: Yes Type: carbonated beverages and tea what type of physical activity do you participate in: none ROS ROS Narrative Patient was intubated on ventilator before I saw her. Please see HPI. Patient has Billings catheter with clear urine about 300 mL. Review of Systems ROS Unobtainable: due to endotracheal tube Vital Signs Vital Signs Vital Signs: 05/30/23 20:20 05/30/23 20:29 05/30/23 20:57 Temperature 97.6 F L Temperature Source Oral Pulse Rate 107 H 96 Respiratory Rate 29 H 20 H Respiratory Effort Short of Breath Labored Respiratory Depth Shallow Respiratory Pattern Tachypnea Tachypnea Blood Pressure 193/91 H Blood Pressure Mean 125 Pulse Ox 96 Oxygen Delivery Method Nasal Cannula Nasal Cannula Oxygen Flow Rate (L/min) 4 4 05/30/23 20:44 Temperature Temperature Source Pulse Rate Respiratory Rate Respiratory Effort Respiratory Depth Respiratory Pattern Blood Pressure Blood Pressure Mean Pulse Ox 96 Oxygen Delivery Method Nasal Cannula Oxygen Flow Rate (L/min) 4 Weight Weight: 218 lb 14.704 oz Body Mass Index (BMI) 40.0 Physical Exam Narrative General: Sedated on propofol drip. Intubated. HEENT: Atraumatic, PERRLA, EOMI, Normocephalic Oral: ET and OG tube. Neck: Supple, No JVD, Negative Carotid Bruits Lungs: Air entry diminished in bilateral lung bases. No wheezing. On ventilator, AC control mode. Cardiovascular: Transient A-fib after CODE BLUE. Electrocardioversion with 300 J.. Sinus rhythm, no murmurs Abdomen: Bowel Sounds Present, Soft, Non Tender, Non-Distended : Billings catheter, clear urine. No renal angle tenderness. No suprapubic tenderness. Extremities: No edema, Capillary Refill Less than 3 Seconds Skin: No rashes, No breakdown Musculoskeletal: No Tenderness to Palpation of Joints or Extremities. Bilateralknee and hip joints arthritis. Neurological: Sedated, complete neuro exam unobtainable. Previously no acute focal neurological deficit. Psych/Mental Status: Sedated. Results Lab / Micro Data 05/30/23 20:30 05/30/23 20:30 Labs: Laboratory Results - last 24 hr 05/30/23 20:30: WBC 12.4 H, RBC 3.78 L, Hgb 10.9 L, Hct 34.8 L, MCV 92.1, MCH 28.8, MCHC 31.3 L, RDW Std Deviation 41.3, RDW Coeff of Malcom 12.4, Plt Count 368,MPV 10.6, Immature Gran % (Auto) 1.100 H, Neut % (Auto) 76.7 H, Lymph % (Auto) 14.6 L, Cooke % (Auto) 5.4, Eos % (Auto) 1.4, Baso % (Auto) 0.8, Absolute Neuts (auto) 9.5 H, Absolute Lymphs (auto) 1.80, Nucleated RBC % 0, D-Dimer Quant (PE/DVT) 0.72 H*, Sodium 139, Potassium 3.5, Chloride 102, Carbon Dioxide 30.0, Anion Gap 7, BUN 15, Creatinine 0.84, Estim Creat Clear Calc 48.58, Est GFR (MDRD) Af Amer 86, Est GFR (MDRD) Non-Af 71, BUN/Creatinine Ratio 17.9, Glucose 201 H, Calcium 9.5, Troponin I High Sens 20 Rhythm Strip Rhythm Strip: Sinus Rhythm Rate: 92 Ectopy: None Radiology Impression Chest X-Ray 05/30/23 21:05 IMPRESSION: Normal x-ray examination of the chest. Electronically Signed: Max Braxton MD at 21:21 EDT , Assessment & Plan Assessment/Plan (1) Atrial fibrillation with rapid ventricular response: (2) Cardiac arrest with pulseless electrical activity: (3) COPD exacerbation: PLAN: Plan In the morning. This 72-year-old female came to ED after today's discharge withincreased respiratory distress, tachypnea and hypoxia and then CODE BLUE blue after CTA chest, successfully ROSC and then admitted in ICU. 1. Acute cardiopulmonary arrest after CTA chest concern for possible anaphylactic reaction from IV contrast: Patient is being admitted in ICU. In her allergy list it is mention prednisone causes some mood changes which is known side effect of prednisone/steroid and hives with red dye. ER physician also said patient tongue was swollen and redness of the skin which improved later in the ED. Continue IV Solu-Medrol. Patient is intubated. Had successful ACLS/BLS lasted for 14 minutes with 3 doses of epinephrine. ABG 7.18/68/391 bicarb 28. Bicarb in BMP is 13. Women Designer consulted 2. Acute combined respiratory failure on chronic hypoxic respiratory failure due to acute exacerbation of COPD most likely due to bilateral lower lobes pneumonia organism unspecified, prior to present admission. : Continue bronchodilators DuoNeb every 4 hourly, IV Solu-Medrol, incentive/Pep after extubation, Mucinex. Prior to intubation, chest x-ray initially reviewed shows no acute infiltrate and reported normal. Started on IV ceftriaxone. Continue doxycycline. Patient completed azithromycin course. Patient just had COVID-19 PCR reported normal, respiratory panel normal and urinary antigens normal on 05/29/2023. She had COVID-vaccine and booster. Blood cultures x2 on 05/[address] still [address]. Patient follows Dr. Nuno in pulmonary clinic. 3. Transient A-fib after ACLS with history of CAD status post PCI ostial diagonal and mid LAD 12/26/2018 : Patient has been in sinus rhythm during previous EKG and EKG done prior to CODE BLUE. It is normal sinus rhythm 92 bpm. After CODE BLUE it was A- fib 138 bpm, QTc 4 8 8 ms. QRS 84 ms. Repeat 2D echo as patient had cardiopulmonary arrest. Patient was successfully cardioverted to sinus rhythm after 300 J by ER physician. Currently in sinus rhythm. Patient was admitted for unstable angina in December 2022 and at that time cardiac cath was done for abnormal stress test. Cardiac cath showed ostial lesion of jailed diagonal branch, patent LAD stent therefore no PCI was done. Continue losartan, metoprolol, isosorbide and Plavix. #3. Chronic Diastolic CHF: 08/11/2021 echocardiogram with normal LV size, moderate concentric LVH, LV systolic function normal, EF 60%, pulmonary artery systolic pressure 40 mmHg, stageI diastolic dysfunction. Patient is on Lasix 20 mg along with potassium supplement continued. Patient not showing clinical features of acute heart failure exacerbation. #5. Diabetes mellitus type II: Continue home dose of Lantus insulin and lispro insulin. Currently NPO. accu checks every 6 hourly with Humalog sliding scale coverage. Start tube feed in the morning if still not extubated. #6. Hypertension: Blood pressure was high in the ED. BP still 156/97. Continue home regimen including metoprolol, losartan, isosorbide. #7. Hyperlipidemia: Continue home statin regimen. Fasting profile in December 2022 within normal limit LDL 44, HDL 55. Continue high intensity atorvastatin. #8. Chronic normocytic anemia: Admission hemoglobin 10.9 g. On baseline. Platelet count normal. #9. Anxiety and depression: Hold risperidone, citalopram, alprazolam home regimen as patient is sedated on propofol and fentanyl drip #10. Morbid Obesity: Weight loss and lifestyle changes encouraged. #11. Other comorbidities include obstructive sleep apnea, former smoker: DVT prophylaxis: Lovenox 40 mg subcu daily. Living will/advanced directive/end of life care: Patient does not have living will or advanced directive. Her [id number]-ap-woy and son who lives in [place] is next to kin. She does not have designated power of senior trial attorney for health. After discussion of benefits/risks procedures involved with full code, DNR CC arrest and DNR CC, the patient opted for full code. Patient does want artificial life support including intubation, tube feed, ventilator and/chest compression, central venous catheter, vasopressor and DC shock if needed Total time spent in [id number] encounter in discussion of advanced directive 17 minutes. This is from admission about 1-day ago Laboratory Results 05/30/23 20:30: WBC 12.4 H, RBC 3.78 L, Hgb 10.9 L, Hct 34.8 L, MCV 92.1, MCH 28.8, MCHC 31.3 L, RDW Std Deviation 41.3, RDW Coeff of Malcom 12.4, Plt Count 368,MPV 10.6, Immature Gran % (Auto) 1.100 H, Neut % (Auto) 76.7 H, Lymph % (Auto) 14.6 L, [place] % (Auto) 5.4, Eos % (Auto) 1.4, Baso % (Auto) 0.8, Absolute Neuts (auto) 9.5 H, Absolute Lymphs (auto) 1.80, Nucleated RBC % 0, D-Dimer Quant (PE/DVT) 0.72 H*, Sodium 139, Potassium 3.5, Chloride 102, Carbon Dioxide 30.0, Anion Gap 7, BUN 15, Creatinine 0.84, Estim Creat Clear Calc 48.58, Est GFR (MDRD) Af Amer 86, Est GFR (MDRD) Non-Af 71, BUN/Creatinine Ratio 17.9, Glucose 201 H, Calcium 9.5,Troponin I High Sens 20 05/30/23 23:03: Specimen Type ART, Sample Site L Radial, pH 7.18 L*, BicarbonateActual 25.5, Total CO2 28, Base Excess -3 L, O2 Saturation 100 H, O2 % 100.0, ABG pCO2 67.9 H*, ABG pO2 391 H*, Dima Test N/A, Respiration Rate 14, O2 Delivery Device Adult Vent, Vent Mode AC, Tidal Volume 450.0, POC PEEP 5, Crit Call To/Read Back Yes, Blood Gas Notified Whom Dr Holland, Blood Gas Notified Time 23:05:17 Clinical Impression(s) from Imaging Studies Chest X-Ray 05/30/23 21:05 IMPRESSION: Normal x-ray examination of the chest. Charges/Coding Visit Charges Inpatient E&M: 35508 Init Hosp L3 Procedures Hospitalists Procedures: 13514 Advncd Care Plan 30 Min 05/31/23 0045 <Electronically signed by Nico Sweet MD> Cosigner Signature (if applicable): CC: Dr. Billy Madera MD; Dr. Nico Sweet MD~ Signed [facility] Work Phone: [facility] Work Phone: Hospital Discharge instructions Additional Instructions Cardiac work-up negative. Follow-up with your doctors. Return if any worsening symptoms.[facility] Work Phone: Hospital Discharge instructions Additional Instructions Please begin taking the daily maintenance inhaler of Breo to help prevent exacerbations of your COPD. Continue all of your other medications as previously directed and return to the ER should you have any further concernsW[facility] Work Phone: Hospital Discharge instructions Additional Instructions Your work-up today showed no signs of heart damage therefore continue the medication as prescribed by your analytical research program manager and return to the ER should you have any further concerns [facility] Work Phone: Hospital Discharge instructions Additional Instructions Your work-up showed your blood sugar was mildly elevated but otherwise was largely normal. The exact cause your symptoms is not clear. Is possible some type of viral syndrome. Make sure you are drinking enough water and watching her sugar intake. Please follow-up with your primary care doctor but return to the ER if you have a worsening of your symptoms or have further concerns.[facility] Work Phone: Hospital Discharge instructionsAmbulatory Orders* Ears, Nose and Throat Location: None Selected [facility] Work Phone: Progress note Author Michelle Givens [facility] Note Date/Time April 27, 2025 12:13pm [facility] [address] [place] [address] OFFICE VISIT Date of Service: 04/27/25 MR#: [id number] Acct: [id number] Name: JEANNA VARGAS Rep #: [id number] : 1950 Provider: SYMONE Givens Age/Sex: 74/F Location: [facility].PMW Status: Signed Assessment and Plan Assessment and Plan (1) Asthma with COPD: Status: Chronic Comment: FEV1 65% Plan: Niox preformed in the office today. It returned normal. This indicates that systemic corticosteroids would not be beneficial. Continue current nebulized treatments. Keep June routine follow up. (2) Pneumonia: Status: Acute Qualifiers: Pneumonia type: due to unspecified organism Laterality: right Lung location: lower lobe of lung Qualified Code(s): J18.9 - Pneumonia, unspecified organism Plan: Concern for pneumonia due to productive cough and chest discomfort. I am sendingher for a CXR and CBCd. I informed her that I may not have results until Wednesday.She was fine with that. (3) Chronic respiratory failure: Status: Chronic Qualifiers: Respiratory failure complication: hypoxia Qualified Code(s): J96.11 - Chronic respiratory failure with hypoxia Comment: 4LPM NC Plan: The patient is using and benefiting from oxygen. Continue to utilize to maintain a saturation of 89-92%. (4) Shortness of breath: Status: Acute Plan: Progressed, of unclear etiology. I will check for heart failure. She has not hadany recent surgeries that would put her at risk for blood clot, she is on Plavix. She has not had a sudden decline in activity level either. No new medications until test results are reviewed. Orders: Orders NIOX Today R05.9 - Cough, unspecified Chest PA and Lateral Today J18.9 - Pneumonia, unspecified organism Basic Metabolic Profile (BMP) Today J18.9 - Pneumonia, unspecified organism CBC W/Diff, Automated Today J18.9 - Pneumonia, unspecified organism Pro- Brain NATRIURETIC PEPTIDE Today J18.9 - Pneumonia, unspecified organism, R06.02 - Shortness of breath Plan Details Additional Comments: This note was generated with GEN[employer] dictation software. It may contain incorrectwords, spelling, and punctuation that were not noted in checking the note beforesigning. HPI Acute sick Chief Complaint: short of breath and cough HPI Comments Details: This patient presents to the office today for an acute visit regarding shortnessof breath ongoing for the past 2 weeks. She is ambulatory with a wheeled walkerand on supplemental oxygen. She contacted the office on April 24, 2025 reporting shortness of breath lizzie cough productive of yellow-colored sputum. Patient was instructed that an office visit would be needed. She is currently using DuoNebs four times daily, albuterol nebulized four times daily and budesonide nebulized twice daily. She does report rinsing her mouth out after each use. She denies any medication side effects such as sore throat or thrush. She is compliant with supplemental oxygen. She is now using 5 L/min continuous. She continues to experience shortness of breath on exertion. She feels as thoughit has progressed over the past 3 weeks. She denies wheezing and chest tightness. She has had a cough productive of yellow sputum. She denies any hemoptysis. She reports chest discomfort around the base of the lungs radiating to the right back side. She occasionally has chest discomfort over the left chest when lying flat. She has not had any fever, chills or body aches. She denies palpitations. 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 Required: No DME Vendor: [employer] Accompanied by: Self Allergies Iodinated Contrast Media Allergy (Severe, Verified 04/27/25 11:14) Anaphylaxis amoxicillin (Amoxicillin) Allergy (Intermediate, Verified 04/27/25 11:14) Rash hydrocodone Allergy (Intermediate, Verified 04/27/25 11:14) SWELLING gabapentin (From Neurontin) Allergy (Verified 04/27/25 11:14) Shortness of breath levofloxacin (From Levaquin) Allergy (Verified 04/27/25 11:14) Hives pseudoephedrine HCl (From Sudafed) Allergy (Verified 04/27/25 11:14) Shortness of breath red dye Allergy (Verified 04/27/25 11:14) Hives prednisone Adverse Reaction (Severe, Verified 04/27/25 11:14) mean mood clonazepam (From Klonopin) Adverse Reaction (Verified 04/27/25 11:14) Depression codeine Adverse Reaction (Verified 04/27/25 11:14) HEADACHE Medications ?Medication ?Instructions ?Recorded ?Confirmed ?Type Handicap Placard #1 ea 12/12/20 04/12/25 Rx bisacodyl 5 mg tablet,delayed 5 mg PO QHS PRN constipa tion 30 11/13/21 04/27/25 Rx release (Dulcolax (bisacodyl)) days #30 tabs pen needle, diabetic 32 gauge x #50 ea 02/11/22 Rx 5/32" blood sugar diagnostic (True #100 ea 09/11/22 04/12/25 Rx Metrix Glucose Test Strip) blood-glucose meter (True Metrix #1 ea 09/11/22 Rx Glucose Meter) albuterol sulfate 90 mcg/actuation 2 puff inhalation Q 6H PRN 11/06/22 04/27/25 Rx aerosol inhaler shortness of breath or wheez ing #18 grams ipratropium 0.5 mg-albuterol 3 mg 3 ml inhalation Q4H PRN PRN SOB 11/10/22 04/27/25 Rx (2.5 mg base)/3 mL nebulization &/OR WHEEZING #180 mL soln cane #1 ea 11/16/22 04/12/25 Rx citalopram 40 mg tablet 40 mg PO QHS depression #90 tabs 11/16/22 04/27/25 Rx isosorbide mononitrate 60 mg 60 mg PO DAILY BP #90 tab s 12/26/22 04/27/25 Rx tablet,extended release 24 hr nitroglycerin 0.4 mg sublingual 0.4 mg sublingual Q5-1 5M PRN Pain 12/26/22 04/27/25 Rx tablet #30 tabs flash glucose sensor (FreeStyle #2 ea 01/06/23 5 Rx Tanika 2 Sensor kit) atorvastatin 80 mg tablet 80 mg PO QHS cholesterol 04/27/25 History clopidogrel 75 mg tablet 75 mg PO DAILY blood thinner 01/26/23 04/27/25 History metoprolol tartrate 25 mg tablet 12.5 mg PO BID blood pressure 01/26/23 04/27/25 History flash glucose scanning reader #1 ea 03/23/23 04/12/25 Rx (FreeStyle Tanika 2 [place]) pantoprazole 40 mg tablet,delayed 40 mg PO BID stomach #180 tabs 05/20/23 04/27/25 Rx release dextrose 40 % oral gel (Glucose 10 g PO Q15M PRN hypog lycemia 07/23/23 04/12/25 History Gel) budesonide 1 mg/2 mL suspension 0.5 mg inhalation BID breathing 08/13/23 04/27/25 History for nebulization potassium chloride 20 mEq 20 meq PO BID supplement 04/27/25 History tablet,extended release insulin lispro 100 unit/mL See Protocol subcut ACHS #0 mL 08/26/23 04/27/25 Rx subcutaneous pen (Humalog KwikPen (U-100) Insulin) dulaglutide 0.75 mg/0.5 mL 0.75 mg subcut QWEEK 04/27/25 History subcutaneous pen injector fluticasone propionate 50 1 spray intranasal Q12H PRN 12/18/23 04/27/25 History mcg/actuation nasal allergy symptoms spray,suspension (Allergy Relief (fluticasone)) insulin glargine 100 unit/mL (3 30 unit subcut QHS becky betic 12/18/23 04/27/25 History mL) subcutaneous pen (Basaglar managment KwikPen U-100 Insulin) tizanidine 2 mg capsule (Zanaflex) 2 mg PO Q8H PRN mus jeffery spasticity 12/18/23 04/27/25 History ondansetron 4 mg disintegrating 4 mg PO Q8H PRN PRN Na usea #10 tabs 12/28/23 04/27/25 Rx tablet losartan 50 mg tablet 50 mg PO QDAY 04/25/2404/27 History acetaminophen 500 mg tablet 1,000 mg PO Q8 PRN pain 04/12/25 History insulin lispro 100 unit/mL 5 unit subcut 1700 06/04/24 04/27/25 History subcutaneous pen (Humalog KwikPen (U-100) Insulin) insulin lispro 100 unit/mL 15 unit subcut QHS diabetes 06/04/24 04/27/25 History subcutaneous pen (Humalog KwikPen (U-100) Insulin) montelukast 10 mg tablet 10 mg PO QHS #7 tabs 08/02/2 4 04/27/25 Rx (Singulair) furosemide 40 mg tablet (Lasix) 40 mg PO QAM 08/24/24 04/27/25 History prednisone 2.5 mg tablet 2.5 mg PO QDAY 08/24/2404/09 History lidocaine 5 % topical 1 patch topical DAILY PRN pa in #60 09/01/24 04/27/25 Rx patch-adhesive silicone combo pack ea linaclotide 290 mcg capsule 290 mcg PO QAM #90 caps 04/27/25 Rx polyethylene glycol 3350 17 17 g PO QDAY #850 grams 04/27/25 Rx gram/dose oral powder (Miralax) sucralfate 1 gram tablet 1 g PO TID 02/08/25 04/27/25 History nystatin 100,000 unit/gram topical 1 applic topical BI D #45 ea 03/30/25 04/27/25 Rx powder (Nystop) alprazolam 0.25 mg tablet 0.25 mg PO QHS PRN anxiety # 30 tabs 04/18/25 Rx alprazolam 0.25 mg tablet (Xanax) 0.25 mg PO QHS PRN 0 04/27/25 04/27/25 History aluminum-magnesium hydroxide 200 30 ml PO Q4-6H PRN 04/27/25 History mg-200 mg/5 mL oral suspension artifi.tears(hypromellose)(PF) 1.7 1 drp ophthalmic (e ye) .qid PRN 04/27/25 04/27/25 History % eye drops with applicator clotrimazole 1 % vaginal cream 1 appful vaginal QHS 04/27/25 History multivitamin-iron 9 mg-folic acid 1 tab PO QAM 5 04/27/25 History 400 mcg-calcium and minerals tablet (Thera-M) Have you fallen in the past year?: No PFSH Medical History MRSA (methicillin resistant staph aureus) culture positive Muscle ache of extremity Sinusitis Anxiety Pancreatitis On home oxygen therapy Coronary artery disease Chronic constipation Insomnia Endotracheally intubated Bilateral pneumonia MARK treated with BiPAP Morbid obesity Diastolic CHF Chest pain Obesity Chronic back pain Anxiety and depression Anemia Thyroid nodule Hepatitis Former smoker Psoriasis Smoking greater than 40 pack years HLD (hyperlipidemia) Back pain Asthma with COPD Type 2 diabetes mellitus Hypertension Atherosclerotic heart disease of [place] coronary artery without angina pectoris Chronic respiratory failure COPD (chronic obstructive pulmonary disease) Surgical History History of coronary artery stent placement History of left heart catheterization (LHC) (~09/23/20) History of cholecystectomy Stented coronary artery (12/28/18) Family History Brother Heart disease Mother Colon cancer Heart disease Social History housing: assisted living facility number of children: 2 Smoking Status: Former smoker pack-years: 40 how long ago did patient quit smokin years ago alcohol intake: never substance use type: does not use caffeine: Yes Type: carbonated beverages and tea what type of physical activity do you participate in: none do you feel safe at home: Yes additional social history: - Ethan Review of Systems Resp Respiratory: Yes as per HPI Exam Const Constitutional: Positive conversant, cooperative, in no acute respiratory distress, well developed, well nourished, good hygiene, obese and wearing supplemental oxygen Head Head: Yes normocephalic, Yes atraumatic and No cyanosis of lips/distal nose Eyes Eye: Positive clear conjunctiva; Negative nystagmus Ears Ear: Positive hearing normal and external ears normal Nose Nose: Yes external nose normal Mouth Mouth: Positive oral mucosae normal Neck Neck: Positive normal visual inspection, full ROM and trachea midline Chest Wall Chest: Positive symmetric chest movement and increased A/P diameter Resp lung sounds: Positive diminished lung sounds, prolonged expiratory time and normal chronic state of increased work of breathing; Negative wheezes, rhonchi or rales Cardio Cardiac: Positive S1 normal and S2 normal; Negative regular rate, regular rhythm or murmur GI GI: Positive obese Musc Musculoskeletal: Positive using an assistive device for ambulation and ROM normal; Negative kyphosis or scoliosis Skin Pulmonary Skin Exam: Positive intact; Negative lesion, rash or ulcers Extremities Extremities: No clubbing and No cyanosis Neuro Neurologic: Yes no focal neuro deficits, Yes conversant, Yes cooperative, Yes normal cognition, Yes normal coordination, Yes normal concentration and Yes understands questions Psych Appearance: Positive grossly normal, eye contact and well kempt Mental Status: Positive mental status grossly normal Mood: Positive congruent mood Affect: Positive normal affect Office Procedures Niox Air Inflam Monitor NIOX Result NIOX: 11 Coding Level of Care Code Off vis,est,level 4 Diagnoses Asthma with COPD J44.9 Pneumonia of right lower lobe due to infectious organism J18.9 Pneumonia type: due to unspecified organism Laterality: right Lung location: lower lobe of lung Chronic respiratory failure with hypoxia J96.11 Respiratory failure complication: hypoxia Shortness of breath R06.02 Clinical Quality Measures Falls Risk Screening/Assistive Devices Have you fallen in the past year?: No 04/27/25 1213 <Electronically signed by Michelle michel AIR CREW SUPERVISOR AIR CREW SUPERVISOR-C> Date _ Michelle Givens AIR CREW SUPERVISOR AIR CREW SUPERVISOR-C Cosigner Signature: Date (if applicable) CC: Dr. 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 Expl anation Advance Directive(s) Advance Directive(s) 04/28/2016 5:40 PM Advance Directive(s) 05/04/2016 7:48 AM Advance Directive Response Recorded Date/ Time Advance Directives No November 03 12:08pm Living Will No November 03, 2021 12:08pm Power of Air Drill Operator No November 03 12:08pm Advance Directive Response Recorded Date/ Time Advance Directives No November 03 12:08pm Living Will No December 19, 2021 7 :54pm Power of Air Drill Operator No December 19, 2021 7:54pm Advance Directive Response Recorded Date/ Time Advance Directives No November 03 12:08pm Living Will No January 20, 2022 9:16pm Power of Air Drill Operator No January 20 9:16pm Advance Directive Response Recorded Date/ Time Advance Directives No November 03 12:08pm Living Will No March 14, 2022 10:17pm Power of Air Drill Operator No March 14 10:17pm Advance Directive Response Recorded Date/ Time Advance Directives No November 03, 2 022 12:08pm Living Will No May 21 8:42pm Power of Air Drill Operator No May 21, 2022 8:42pm Advance Directive Response Recorded Date/ Time Advance Directives No November 03, 2 022 11:08am Living Will No July 15 7:03pm Power of Air Drill Operator No July 15, 2022 7:03pm Advance Directive Response Recorded Date/ Time Advance Directives No November 03, 2 022 11:08am Living Will No August 28 2:43pm Power of Air Drill Operator No August 28, 2022 2:43pm Advance Directive Response Recorded Date/ Time Advance Directives No November 03, 2 11:08am Living Will No September 23, 023 6:53pm Power of Air Drill Operator No September 23, 2022 6:53pm Advance Directive Response Recorded Date/ Time Advance Directives No November 03, 2 11:08am Living Will No October 15, 2022 2:30am Power of Air Drill Operator No October 15 2:30am Advance Directive Response Recorded Date/ Time Advance Directives No November 03, 2 12:08pm Living Will No October 15, 2022 3:30am Power of Air Drill Operator No October 15 3:30am Advance Directive Response Recorded Date/ Time Advance Directives No November 03, 2 12:08pm Living Will No January 04, 2023 1 0:54pm Power of Air Drill Operator No January 04, 2023 10:54pm Advance Directive Response Recorded Date/ Time Advance Directives No November 03, 2 022 12:08pm Living Will No January 26, 2023 10:07pm Power of Air Drill Operator No January 26 10:07pm Advance Directive Response Recorded Date/ Time Advance Directives No November 03, 2 022 12:08pm Living Will No March 18 9:11pm Power of Air Drill Operator No March 18, 2 023 9:11pm Advance Directive Response Recorded Date/ Time Advance Directives No November 03, 2 12:08pm Living Will No April 16, 2 7:26pm Power of Air Drill Operator No April 16, 2023 7:26pm Advance Directive Response Recorded Date/ Time Advance Directives No November 03 12:08pm Living Will No May 29 1:07am Power of Air Drill Operator No May 29, 2023 1:07am Advance Directive Response Recorded Date/ Time Advance Directives No November 03 12:08pm Living Will No May 30 11:58pm Power of Air Drill Operator No May 30, 2023 11:58pm Advance Directive Response Recorded Date/ Time Advance Directives No November 03 11:08am Living Will No May 30 10:58pm Power of Air Drill Operator No May 30, 2023 10:58pm Advance Directive Response Recorded Date/ Time Name of Medical Power of Air Drill Operator SON August 22, 2023 6:33am Advance Directives No November 03 11:08am Living Will Yes August 22 6:33am Power of Air Drill Operator Yes August 22, 2023 6:33am Advance Directive Response Recorded Date/ Time Name of Medical Power of Air Drill Operator latriceraquel vargas August 22, 2023 11:31am Advance Directives No November 03 11:08am Living Will No August 22 11:31am Power of Air Drill Operator Yes August 22, 2023 11:31am Advance Directive Response Recorded Date/ Time Name of Medical Power of Air Drill Operator latriceraquel vargas August 22, 2023 12:31pm Advance Directives No November 03 12:08pm Living Will No August 22 12:31pm Power of Air Drill Operator Yes August 22, 2023 12:31pm Advance Directive Response Recorded Date/ Time Name of Medical Power of Air Drill Operator latriceraquel vargas August 22, 2023 12:31pm Name of Medical Power of Air Drill Operator gely vargas December 08, 2023 3:13pm Advance Directives No November 03 12:08pm Living Will No December 08, 2023 3: 13pm Power of Air Drill Operator Yes December 08, 2023 3:13pm Advance Directive Response Recorded Date/ Time Living Will Yes December 28, 2023 1 0:40am Do you have a Healthcare Power of Air Drill Operator? Yes May 21st, 2024 10:40am Living Will No August 02, 9:57pm Do you have a Healthcare Power of Air Drill Operator? Yes August 02, 2024 9:57pm Name of Medical Power of Air Drill Operator RUFUS CLARK August 02, 2024 9:57pm Advance Directives No November 03, 12:08pm Advance Directive Response Recorded Date/ Time Living Will Yes December 28, 2023 1 0:40am Do you have a Healthcare Power of Air Drill Operator? Yes December 28, 2023 10:40am Do you have a Healthcare Power of Air Drill Operator? Yes December 23, 2024 11:19pm Advance Directives No November 03, 12:08pm Advance Directive Response Recorded Date/ Time Do you have a Healthcare Power of Air Drill Operator? Yes December 23, 2024 11:19pm Advance Directives No November 03, 12:08pm Advance Directive Response Recorded Date/ Time Advance Directives No March 27, 2025 1:48pm Living Will Yes December 28, 2023 1 0:40am Do you have a Healthcare Power of Air Drill Operator? Yes December 28, 2023 10:40am Do you have a Healthcare Power of Air Drill Operator? Yes December 23, 2024 11:19pm Advance Directive Response Recorded Date/ Time Advance Directives No March 27, 2025 1:48pm Living Will Yes December 28, 2023 1 0:40am Do you have a Healthcare Power of Air Drill Operator? Yes December 28, 2023 10:40am Advance Directive Response Recorded Date/ Time Advance Directives No March 27, 2025 1:48pm Assessments Diagnosis Right elbow pain Pain in joint, upper arm Summary Purpose Family History No Family History Records Found Relationship Condition Age at Onset Recorded Date/T angela brother Cardiac disease Unknown mother Malignant neoplasm of colon Unknown Cardiac disease Unknown Chief Complaint and Reason for Visit Chief Complaint HOME PHONE-COUGHING X2WK SORE THROAT/SOB CHEST X RAY 3 M FU Shortness of breath ACUTE ON CHRONIC HYPOXIA ACUTE ON CHRONIC HYPOXIA FLASH PULMONARY EDEMA FLASH PULMONARY EDEMA FLASH PULMONARY EDEMA FLASH PULMONARY EDEMA FLASH PULMONARY EDEMA Hospital FU CHF EXACERBATION & PNEUMONIA RESP FAILURE, PNEUMONIA, CHF CHF EXACERBATION & PNEUMONIA sob PNEUMONIA, COPD EXACERBATION PNEUMONIA, COPD EXACERBATION PNEUMONIA, COPD EXACERBATION PNEUMONIA, COPD EXACERBATION 3 M FU INT LABS Reason for Visit Acute bronchitis COPD (chronic obstructive pulmonary disease) CHF (congestive heart failure) Hypertension Acute and chronic respiratory failure with hypoxia COPD exacerbation Elevated troponin Flash pulmonary edema Heart palpitations CHF (congestive heart failure) Dermatomyositis Acute and chronic respiratory failure with hypoxia Hypertension Acute and chronic respiratory failure with hypoxia Constipation Pneumonia CHF (congestive heart failure) Acute and chronic respiratory failure with hypoxia Constipation Respiratory failure, acute COPD (chronic obstructive pulmonary disease) Pneumonia Shortness of breath Acute and chronic respiratory failure with hypoxia COPD (chronic obstructive pulmonary disease) CHF (congestive heart failure) Acute and chronic respiratory failure with hypoxia Chief Complaint HOME PHONE-COUGHING X2WK SORE THROAT/SOB CHEST X RAY 3 M FU Shortness of breath ACUTE ON CHRONIC HYPOXIA ACUTE ON CHRONIC HYPOXIA FLASH PULMONARY EDEMA FLASH PULMONARY EDEMA FLASH PULMONARY EDEMA FLASH PULMONARY EDEMA FLASH PULMONARY EDEMA Hospital FU CHF EXACERBATION & PNEUMONIA RESP FAILURE, PNEUMONIA, CHF CHF EXACERBATION & PNEUMONIA sob PNEUMONIA, COPD EXACERBATION PNEUMONIA, COPD EXACERBATION PNEUMONIA, COPD EXACERBATION PNEUMONIA, COPD EXACERBATION 3 M FU INT LABS req. sooner appt/ [facility] FOLLOW UP 1 Y FU Reason for Visit Acute bronchitis COPD (chronic obstructive pulmonary disease) CHF (congestive heart failure) Chronic respiratory failure Chronic respiratory failure Hypertension Acute and chronic respiratory failure with hypoxia COPD exacerbation Elevated troponin Flash pulmonary edema Heart palpitations CHF (congestive heart failure) Dermatomyositis Acute and chronic respiratory failure with hypoxia Hypertension Acute and chronic respiratory failure with hypoxia Constipation Pneumonia CHF (congestive heart failure) Acute and chronic respiratory failure with hypoxia Constipation Respiratory failure, acute COPD (chronic obstructive pulmonary disease) Pneumonia Shortness of breath Acute and chronic respiratory failure with hypoxia COPD (chronic obstructive pulmonary disease) CHF (congestive heart failure) Acute and chronic respiratory failure with hypoxia Fatigue HLD (hyperlipidemia) Atherosclerotic heart disease of [place] coronary artery without angina pectoris CHF (congestive heart failure) Hypertension Thyroid nodule Anemia Chronic respiratory failure Generalized anxiety disorder Diabetes Hypertension Obesity Chief Complaint FLASH PULMONARY JULIO A FLASH PULMONARY EDEMA FLASH PULMONARY EDEMA Hospital FU CHF EXACERBATION & PNEUMONIA RESP FAILURE, PNEUMONIA, CHF CHF EXACERBATION & PNEUMONIA sob PNEUMONIA, COPD EXACERBATION PNEUMONIA, COPD EXACERBATION PNEUMONIA, COPD EXACERBATION PNEUMONIA, COPD EXACERBATION 3 M FU INT LABS req. sooner appt/ [facility] FOLLOW UP 1 Y FU 3 M FU 1 M FU NODULE Reason for Visit Elevated troponin Flash pulmonary edema Heart palpitations CHF (congestive heart failure) Dermatomyositis Acute and chronic respiratory failure with hypoxia Hypertension Acute and chronic respiratory failure with hypoxia Constipation Pneumonia CHF (congestive heart failure) Acute and chronic respiratory failure with hypoxia Constipation Respiratory failure, acute COPD (chronic obstructive pulmonary disease) Pneumonia Shortness of breath Acute and chronic respiratory failure with hypoxia COPD (chronic obstructive pulmonary disease) CHF (congestive heart failure) Acute and chronic respiratory failure with hypoxia HLD (hyperlipidemia) Atherosclerotic heart disease of [place] coronary artery without angina pectoris CHF (congestive heart failure) Fatigue Hypertension Thyroid nodule Anemia Chronic respiratory failure Generalized anxiety disorder Diabetes Hypertension Obesity Chronic respiratory failure Fatigue Generalized anxiety disorder Hypertension COPD (chronic obstructive pulmonary disease) CHF (congestive heart failure) Chronic respiratory failure Chief Complaint Hospital FU CHF EXACERBATION & PNEUMONIA RESP FAILURE, PNEUMONIA, CHF CHF EXACERBATION & PNEUMONIA sob PNEUMONIA, COPD EXACERBATION PNEUMONIA, COPD EXACERBATION PNEUMONIA, COPD EXACERBATION PNEUMONIA, COPD EXACERBATION 3 M FU INT LABS req. sooner appt/ [facility] FOLLOW UP 1 Y FU 3 M FU 1 M FU NODULE VENOFER 200MG VENOFER 200MG Reason for Visit Hypertension Acute and chronic respiratory failure with hypoxia Constipation Pneumonia CHF (congestive heart failure) Acute and chronic respiratory failure with hypoxia Constipation Respiratory failure, acute COPD (chronic obstructive pulmonary disease) Pneumonia Shortness of breath Acute and chronic respiratory failure with hypoxia COPD (chronic obstructive pulmonary disease) CHF (congestive heart failure) Acute and chronic respiratory failure with hypoxia HLD (hyperlipidemia) Atherosclerotic heart disease of [place] coronary artery without angina pectoris CHF (congestive heart failure) Fatigue Hypertension Thyroid nodule Anemia Chronic respiratory failure Generalized anxiety disorder Diabetes Hypertension Obesity Chronic respiratory failure Fatigue Generalized anxiety disorder Hypertension COPD (chronic obstructive pulmonary disease) CHF (congestive heart failure) Chronic respiratory failure Chief Complaint CHF EXACERBATION & P NEUMONIA RESP FAILURE, PNEUMONIA, CHF CHF EXACERBATION & PNEUMONIA sob PNEUMONIA, COPD EXACERBATION PNEUMONIA, COPD EXACERBATION PNEUMONIA, COPD EXACERBATION PNEUMONIA, COPD EXACERBATION 3 M FU INT LABS req. sooner [facility]/ [facility] FOLLOW UP 1 Y FU 3 M FU 1 M FU NODULE VENOFER 200MG VENOFER 200MG 1 M FU Reason for Visit Pneumonia CHF (congestive heart failure) Acute and chronic respiratory failure with hypoxia Constipation Respiratory failure, acute COPD (chronic obstructive pulmonary disease) Pneumonia Shortness of breath Acute and chronic respiratory failure with hypoxia COPD (chronic obstructive pulmonary disease) CHF (congestive heart failure) Acute and chronic respiratory failure with hypoxia HLD (hyperlipidemia) Atherosclerotic heart disease of [place] coronary artery without angina pectoris CHF (congestive heart failure) Fatigue Hypertension Thyroid nodule Anemia Chronic respiratory failure Generalized anxiety disorder Diabetes Hypertension Obesity Chronic respiratory failure Fatigue Generalized anxiety disorder Hypertension COPD (chronic obstructive pulmonary disease) CHF (congestive heart failure) Chronic respiratory failure Diabetes Chief Complaint CHF EXACERBATION & P NEUMONIA RESP FAILURE, PNEUMONIA, CHF CHF EXACERBATION & PNEUMONIA sob PNEUMONIA, COPD EXACERBATION PNEUMONIA, COPD EXACERBATION PNEUMONIA, COPD EXACERBATION PNEUMONIA, COPD EXACERBATION 3 M FU INT LABS req. sooner [facility]/ [facility] FOLLOW UP 1 Y FU 3 M FU 1 M FU NODULE VENOFER 200MG VENOFER 200MG 1 M FU VENOFER 200MG heart racing Reason for Visit Pneumonia CHF (congestive heart failure) Acute and chronic respiratory failure with hypoxia Constipation Respiratory failure, acute COPD (chronic obstructive pulmonary disease) Pneumonia Shortness of breath Acute and chronic respiratory failure with hypoxia COPD (chronic obstructive pulmonary disease) CHF (congestive heart failure) Acute and chronic respiratory failure with hypoxia HLD (hyperlipidemia) Atherosclerotic heart disease of [place] coronary artery without angina pectoris CHF (congestive heart failure) Fatigue Hypertension Thyroid nodule Anemia Chronic respiratory failure Generalized anxiety disorder Diabetes Hypertension Obesity Chronic respiratory failure Fatigue Generalized anxiety disorder Hypertension COPD (chronic obstructive pulmonary disease) CHF (congestive heart failure) Chronic respiratory failure Diabetes Chief Complaint CHF EXACERBATION & P NEUMONIA RESP FAILURE, PNEUMONIA, CHF CHF EXACERBATION & PNEUMONIA sob PNEUMONIA, COPD EXACERBATION PNEUMONIA, COPD EXACERBATION PNEUMONIA, COPD EXACERBATION PNEUMONIA, COPD EXACERBATION 3 M FU INT LABS req. sooner [facility]/ [facility] FOLLOW UP 1 Y FU 3 M FU 1 M FU NODULE VENOFER 200MG VENOFER 200MG 1 M FU VENOFER 200MG heart racing VENOFER 200MG Reason for Visit Pneumonia CHF (congestive heart failure) Acute and chronic respiratory failure with hypoxia Constipation Respiratory failure, acute COPD (chronic obstructive pulmonary disease) Pneumonia Shortness of breath Acute and chronic respiratory failure with hypoxia COPD (chronic obstructive pulmonary disease) CHF (congestive heart failure) Acute and chronic respiratory failure with hypoxia HLD (hyperlipidemia) Atherosclerotic heart disease of [place] coronary artery without angina pectoris CHF (congestive heart failure) Fatigue Hypertension Thyroid nodule Anemia Chronic respiratory failure Generalized anxiety disorder Diabetes Hypertension Obesity Chronic respiratory failure Fatigue Generalized anxiety disorder Hypertension COPD (chronic obstructive pulmonary disease) CHF (congestive heart failure) Chronic respiratory failure Diabetes Chief Complaint CHF EXACERBATION & P NEUMONIA RESP FAILURE, PNEUMONIA, CHF CHF EXACERBATION & PNEUMONIA sob PNEUMONIA, COPD EXACERBATION PNEUMONIA, COPD EXACERBATION PNEUMONIA, COPD EXACERBATION PNEUMONIA, COPD EXACERBATION 3 M FU INT LABS req. sooner [facility]/ [facility] FOLLOW UP 1 Y FU 3 M FU 1 M FU NODULE VENOFER 200MG VENOFER 200MG 1 M FU VENOFER 200MG heart racing VENOFER 200MG VENOFER 200MG shortness of breath Reason for Visit Pneumonia CHF (congestive heart failure) Acute and chronic respiratory failure with hypoxia Constipation Respiratory failure, acute COPD (chronic obstructive pulmonary disease) Pneumonia Shortness of breath Acute and chronic respiratory failure with hypoxia COPD (chronic obstructive pulmonary disease) CHF (congestive heart failure) Acute and chronic respiratory failure with hypoxia HLD (hyperlipidemia) Atherosclerotic heart disease of [place] coronary artery without angina pectoris CHF (congestive heart failure) Fatigue Hypertension Thyroid nodule Anemia Chronic respiratory failure Generalized anxiety disorder Diabetes Hypertension Obesity Chronic respiratory failure Fatigue Generalized anxiety disorder Hypertension COPD (chronic obstructive pulmonary disease) CHF (congestive heart failure) Chronic respiratory failure Diabetes Chief Complaint 3 M FU 1 M FU NODULE VENOFER 200MG VENOFER 200MG 1 M FU VENOFER 200MG heart racing VENOFER 200MG VENOFER 200MG shortness of breath SOB 3 M FU SOB Reason for Visit Chronic respiratory failure Fatigue Generalized anxiety disorder Hypertension COPD (chronic obstructive pulmonary disease) CHF (congestive heart failure) Chronic respiratory failure Diabetes Back pain Anxiety and depression Chronic respiratory failure Hypertension Chief Complaint SOB 3 M FU SOB HIP PAIN, DIFFICULTY WALKING sob Reason for Visit Back pain Anxiety and depression Chronic respiratory failure Hypertension Muscle spasm Muscle strain of right gluteal region Chief Complaint HIP PAIN, DIFFICULTY WALKING sob 3 M FU CHEST PAIN Reason for Visit Muscle spasm Muscle strain of right gluteal region Flu vaccine need Chronic back pain Hypertension Muscular dystrophy Type 2 diabetes mellitus Chief Complaint sob 3 M FU CHEST PAIN SORE THROAT, CHEST CONGESTION, COUGH chest pain back pain Reason for Visit Flu vaccine need Chronic back pain Hypertension Muscular dystrophy Type 2 diabetes mellitus Sore throat COPD (chronic obstructive pulmonary disease) Chest congestion Chief Complaint sob 3 M FU CHEST PAIN SORE THROAT, CHEST CONGESTION, COUGH chest pain back pain back pain EORDER Pneumonia Reason for Visit Flu vaccine need Chronic back pain Hypertension Muscular dystrophy Type 2 diabetes mellitus Sore throat COPD (chronic obstructive pulmonary disease) Chest congestion Chronic back pain Pneumonia Pneumonia CHF (congestive heart failure) COPD (chronic obstructive pulmonary disease) Chief Complaint 3 M FU CHEST PAIN SORE THROAT, CHEST CONGESTION, COUGH chest pain back pain back pain EORDER Pneumonia CHEST PAIN Reason for Visit Flu vaccine need Chronic back pain Hypertension Muscular dystrophy Type 2 diabetes mellitus Sore throat COPD (chronic obstructive pulmonary disease) Chest congestion Chronic back pain Pneumonia Pneumonia CHF (congestive heart failure) COPD (chronic obstructive pulmonary disease) Chief Complaint CHEST PAIN SORE THROAT, CHEST CONGESTION, COUGH chest pain back pain back pain EORDER Pneumonia CHEST PAIN SOB Reason for Visit Sore throat COPD (chronic obstructive pulmonary disease) Chest congestion Chronic back pain Pneumonia Pneumonia CHF (congestive heart failure) COPD (chronic obstructive pulmonary disease) Chief Complaint SORE THROAT, CHEST C ONGESTION, COUGH chest pain back pain back pain EORDER Pneumonia CHEST PAIN SOB 2 M FU Fatigued, Medrefills Reason for Visit Sore throat COPD (chronic obstructive pulmonary disease) Chest congestion Chronic back pain Pneumonia Pneumonia CHF (congestive heart failure) COPD (chronic obstructive pulmonary disease) Smoking greater than 40 pack years Chronic respiratory failure COPD (chronic obstructive pulmonary disease) Obesity Debility Anxiety and depression Fatigue Hypertension Type 2 diabetes mellitus Chief Complaint back pain back pain EORDER Pneumonia CHEST PAIN SOB 2 M FU Fatigued, Medrefills FU SMOKER > 40 PK YRS Reason for Visit Chronic back pain Pneumonia Pneumonia CHF (congestive heart failure) COPD (chronic obstructive pulmonary disease) Smoking greater than 40 pack years Chronic respiratory failure COPD (chronic obstructive pulmonary disease) Obesity Debility Anxiety and depression Fatigue Hypertension Type 2 diabetes mellitus Elevated TSH Obesity Type 2 diabetes mellitus Chief Complaint CHEST PAIN SOB 2 M FU Fatigued, Medrefills FU SMOKER > 40 PK YRS CHEST PAIN CHEST PAIN CHEST PAIN CHEST PAIN sob/cp Chest Pain Reason for Visit Smoking greater than 40 pack years Chronic respiratory failure Obesity Debility Anxiety and depression Fatigue Hypertension Type 2 diabetes mellitus Elevated TSH Obesity Type 2 diabetes mellitus Flu vaccine need Smoking greater than 40 pack years Obesity Type 2 diabetes mellitus Chief Complaint SOB 2 M FU Fatigued, Medrefills FU SMOKER > 40 PK YRS CHEST PAIN CHEST PAIN CHEST PAIN CHEST PAIN sob/cp Chest Pain POSSIBLE PNEUMONIA XRAY PNEUMONIA Pneumonia Pneumonia Pneumonia Reason for Visit Smoking greater than 40 pack years Chronic respiratory failure Obesity Debility Anxiety and depression Fatigue Hypertension Type 2 diabetes mellitus Elevated TSH Obesity Type 2 diabetes mellitus Flu vaccine need Smoking greater than 40 pack years Obesity Type 2 diabetes mellitus Community acquired pneumonia Community acquired pneumonia Pneumonia Shortness of breath COPD with acute exacerbation Obesity Chief Complaint 2 M FU Fatigued, Medrefills FU SMOKER > 40 PK YRS CHEST PAIN CHEST PAIN CHEST PAIN CHEST PAIN sob/cp Chest Pain POSSIBLE PNEUMONIA XRAY PNEUMONIA Pneumonia Pneumonia Pneumonia 3 M FU Reason for Visit Smoking greater than 40 pack years Chronic respiratory failure Obesity Debility Anxiety and depression Fatigue Hypertension Type 2 diabetes mellitus Elevated TSH Type 2 diabetes mellitus Flu vaccine need Smoking greater than 40 pack years Type 2 diabetes mellitus Community acquired pneumonia Community acquired pneumonia COPD with acute exacerbation Shortness of breath Community acquired pneumonia Anxiety and depression Cough Hypertension Type 2 diabetes mellitus Chief Complaint FU SMOKER > 40 PK YRS CHEST PAIN CHEST PAIN CHEST PAIN CHEST PAIN sob/cp Chest Pain POSSIBLE PNEUMONIA XRAY PNEUMONIA Pneumonia Pneumonia Pneumonia 3 M FU S/P [facility] lower ext left leg RM 4 chest pain Reason for Visit Elevated TSH Type 2 diabetes mellitus Flu vaccine need Smoking greater than 40 pack years Type 2 diabetes mellitus Community acquired pneumonia Community acquired pneumonia COPD with acute exacerbation Shortness of breath Community acquired pneumonia Anxiety and depression Cough Hypertension Type 2 diabetes mellitus HLD (hyperlipidemia) CHF (congestive heart failure) Hypertension Synovial cyst of popliteal space [Desai], left knee Pain of left calf Chief Complaint CHEST PAIN CHEST PAIN CHEST PAIN CHEST PAIN sob/cp Chest Pain POSSIBLE PNEUMONIA XRAY PNEUMONIA Pneumonia Pneumonia Pneumonia 3 M FU S/P [facility] lower ext left leg RM 4 chest pain LEFT KNEE UPSET STOMACH SOB, dizziness, abd pain, diarrhea Reason for Visit Flu vaccine need Smoking greater than 40 pack years Type 2 diabetes mellitus Community acquired pneumonia Community acquired pneumonia COPD with acute exacerbation Shortness of breath Community acquired pneumonia Anxiety and depression Cough Hypertension Type 2 diabetes mellitus HLD (hyperlipidemia) CHF (congestive heart failure) Hypertension Synovial cyst of popliteal space [Desai], left knee Pain of left calf Synovial cyst of popliteal space [Desai], left knee Pain of left calf Contact with or suspected exposure to other viral communicable disease Chief Complaint 3 M FU S/P [facility] lower ext left leg RM 4 chest pain LEFT KNEE UPSET STOMACH SOB, dizziness, abd pain, diarrhea LEFT KNEE 3 m fu general illness COPD EXA, PNEUMONIA Reason for Visit Community acquired p neumonia Anxiety and depression Cough Hypertension Type 2 diabetes mellitus HLD (hyperlipidemia) CHF (congestive heart failure) Hypertension Synovial cyst of popliteal space [Desai], left knee Pain of left calf Synovial cyst of popliteal space [Desai], left knee Pain of left calf Contact with or suspected exposure to other viral communicable disease Synovial cyst of popliteal space [Desai], left knee Pain of left calf Flu vaccine need Abdominal pain, epigastric Anxiety and depression Chronic respiratory failure Hypertension Type 2 diabetes mellitus Acidosis, lactic Bilateral pneumonia Failure of outpatient treatment Acute exacerbation of chronic obstructive pulmonary disease Chief Complaint 3 M FU S/P [facility] lower ext left leg RM 4 chest pain LEFT KNEE UPSET STOMACH SOB, dizziness, abd pain, diarrhea LEFT KNEE 3 m fu general illness COPD EXA, PNEUMONIA COPD EXA, PNEUMONIA S/P CODE BLUE AFTER CTPA Reason for Visit Community acquired p neumonia Anxiety and depression Cough Hypertension Type 2 diabetes mellitus HLD (hyperlipidemia) CHF (congestive heart failure) Hypertension Synovial cyst of popliteal space [Desai], left knee Pain of left calf Synovial cyst of popliteal space [Desai], left knee Pain of left calf Contact with or suspected exposure to other viral communicable disease Synovial cyst of popliteal space [Desai], left knee Pain of left calf Flu vaccine need Abdominal pain, epigastric Anxiety and depression Chronic respiratory failure Hypertension Type 2 diabetes mellitus Acidosis, lactic Bilateral pneumonia Failure of outpatient treatment Acute exacerbation of chronic obstructive pulmonary disease Anaphylaxis Atrial fibrillation with rapid ventricular response Cardiac arrest with pulseless electrical activity Endotracheally intubated History of CAD (coronary artery disease) History of diabetes mellitus Respiratory failure COPD exacerbation Chief Complaint 3 M FU S/P [facility] lower ext left leg RM 4 chest pain LEFT KNEE UPSET STOMACH SOB, dizziness, abd pain, diarrhea LEFT KNEE 3 m fu general illness COPD EXA, PNEUMONIA COPD EXA, PNEUMONIA S/P CODE BLUE AFTER CTPA S/P CODE BLUE AFTER CTPA S/P CODE BLUE AFTER CTPA S/P CODE BLUE AFTER CTPA S/P CODE BLUE AFTER CTPA S/P CODE BLUE AFTER CTPA S/P CODE BLUE AFTER CTPA S/P CODE BLUE AFTER CTPA S/P CODE BLUE AFTER CTPA S/P CODE BLUE AFTER CTPA S/P CODE BLUE AFTER CTPA S/P CODE BLUE AFTER CTPA S/P CODE BLUE AFTER CTPA Reason for Visit Community acquired p neumonia Anxiety and depression Cough Hypertension Type 2 diabetes mellitus HLD (hyperlipidemia) CHF (congestive heart failure) Hypertension Synovial cyst of popliteal space [Desai], left knee Pain of left calf Synovial cyst of popliteal space [Desai], left knee Pain of left calf Contact with or suspected exposure to other viral communicable disease Synovial cyst of popliteal space [Desai], left knee Pain of left calf Flu vaccine need Abdominal pain, epigastric Anxiety and depression Chronic respiratory failure Hypertension Type 2 diabetes mellitus Acidosis, lactic Acute exacerbation of chronic obstructive pulmonary disease Failure of outpatient treatment Anaphylaxis Atrial fibrillation with rapid ventricular response Cardiac arrest with pulseless electrical activity Cardiopulmonary arrest with successful resuscitation Endotracheally intubated History of CAD (coronary artery disease) History of diabetes mellitus Respiratory failure COPD exacerbation Chief Complaint LEFT KNEE UPSET STOMACH SOB, dizziness, abd pain, diarrhea LEFT KNEE 3 m fu general illness COPD EXA, PNEUMONIA COPD EXA, PNEUMONIA S/P CODE BLUE AFTER CTPA S/P CODE BLUE AFTER CTPA S/P CODE BLUE AFTER CTPA S/P CODE BLUE AFTER CTPA S/P CODE BLUE AFTER CTPA S/P CODE BLUE AFTER CTPA S/P CODE BLUE AFTER CTPA S/P CODE BLUE AFTER CTPA S/P CODE BLUE AFTER CTPA S/P CODE BLUE AFTER CTPA S/P CODE BLUE AFTER CTPA S/P CODE BLUE AFTER CTPA S/P CODE BLUE AFTER CTPA LAB WORK LABWORK LONG TERM LABWORK LONG TERM LAB WORK 4 M FU Reason for Visit Synovial cyst of pop liteal space [Desai], left knee Pain of left calf Contact with or suspected exposure to other viral communicable disease Synovial cyst of popliteal space [Desai], left knee Pain of left calf Flu vaccine need Abdominal pain, epigastric Anxiety and depression Chronic respiratory failure Hypertension Type 2 diabetes mellitus Acidosis, lactic Acute exacerbation of chronic obstructive pulmonary disease Failure of outpatient treatment Cardiopulmonary arrest with successful resuscitation History of CAD (coronary artery disease) History of diabetes mellitus Anaphylaxis Atrial fibrillation with rapid ventricular response Cardiac arrest with pulseless electrical activity Respiratory failure Asthma with COPD Chronic respiratory failure Smoking greater than 40 pack years Chief Complaint LEFT KNEE UPSET STOMACH SOB, dizziness, abd pain, diarrhea LEFT KNEE 3 m fu general illness COPD EXA, PNEUMONIA COPD EXA, PNEUMONIA S/P CODE BLUE AFTER CTPA S/P CODE BLUE AFTER CTPA S/P CODE BLUE AFTER CTPA S/P CODE BLUE AFTER CTPA S/P CODE BLUE AFTER CTPA S/P CODE BLUE AFTER CTPA S/P CODE BLUE AFTER CTPA S/P CODE BLUE AFTER CTPA S/P CODE BLUE AFTER CTPA S/P CODE BLUE AFTER CTPA S/P CODE BLUE AFTER CTPA S/P CODE BLUE AFTER CTPA S/P CODE BLUE AFTER CTPA LAB WORK LABWORK 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 TERM 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 LONG TERM LAB WORK LONG TERM LAB WORK 4 M FU Reason for Visit Synovial cyst of pop liteal space [Desai], left knee Pain of left calf Contact with or suspected exposure to other viral communicable disease Synovial cyst of popliteal space [Desai], left knee Pain of left calf Flu vaccine need Abdominal pain, epigastric Anxiety and depression Chronic respiratory failure Hypertension Type 2 diabetes mellitus Acidosis, lactic Acute exacerbation of chronic obstructive pulmonary disease Failure of outpatient treatment Cardiopulmonary arrest with successful resuscitation History of CAD (coronary artery disease) History of diabetes mellitus Anaphylaxis Atrial fibrillation with rapid ventricular response Cardiac arrest with pulseless electrical activity Respiratory failure Asthma with COPD Chronic respiratory failure Smoking greater than 40 pack years Chief Complaint LEFT KNEE 3 m fu general illness COPD EXA, PNEUMONIA COPD EXA, PNEUMONIA S/P CODE BLUE AFTER CTPA S/P CODE BLUE AFTER CTPA S/P CODE BLUE AFTER CTPA S/P CODE BLUE AFTER CTPA S/P CODE BLUE AFTER CTPA S/P CODE BLUE AFTER CTPA S/P CODE BLUE AFTER CTPA S/P CODE BLUE AFTER CTPA S/P CODE BLUE AFTER CTPA S/P CODE BLUE AFTER CTPA S/P CODE BLUE AFTER CTPA S/P CODE BLUE AFTER CTPA S/P CODE BLUE AFTER CTPA LAB WORK LABWORK LONG TERM LABWORK LONG TERM LAB WORK LONG TERM LAB WORK 4 M FU MED CHANGE LEFT LOWER LOBE PNEUMONIA, RSV INFECTION Reason for Visit Synovial cyst of pop liteal space [Desai], left knee Pain of left calf Flu vaccine need Abdominal pain, epigastric Anxiety and depression Chronic respiratory failure Hypertension Type 2 diabetes mellitus Acidosis, lactic Acute exacerbation of chronic obstructive pulmonary disease Failure of outpatient treatment Cardiopulmonary arrest with successful resuscitation History of CAD (coronary artery disease) History of diabetes mellitus Anaphylaxis Atrial fibrillation with rapid ventricular response Cardiac arrest with pulseless electrical activity Respiratory failure Asthma with COPD Chronic respiratory failure Smoking greater than 40 pack years HLD (hyperlipidemia) CHF (congestive heart failure) Hypertension Acute dyspnea Hyponatremia Left lower lobe pneumonia RSV infection Acute exacerbation of chronic obstructive pulmonary disease (COPD) Chronic hypoxemic respiratory failure Chief Complaint LEFT KNEE 3 m fu general illness COPD EXA, PNEUMONIA COPD EXA, PNEUMONIA S/P CODE BLUE AFTER CTPA S/P CODE BLUE AFTER CTPA S/P CODE BLUE AFTER CTPA S/P CODE BLUE AFTER CTPA S/P CODE BLUE AFTER CTPA S/P CODE BLUE AFTER CTPA S/P CODE BLUE AFTER CTPA S/P CODE BLUE AFTER CTPA S/P CODE BLUE AFTER CTPA S/P CODE BLUE AFTER CTPA S/P CODE BLUE AFTER CTPA S/P CODE BLUE AFTER CTPA S/P CODE BLUE AFTER CTPA LAB WORK LABWORK LONG TERM LABWORK LONG TERM LAB WORK LONG TERM LAB WORK 4 M FU MED CHANGE LEFT LOWER LOBE PNEUMONIA, RSV INFECTION LEFT LOWER LOBE PNEUMONIA, RSV INFECTION LEFT LOWER LOBE PNEUMONIA, RSV INFECTION LEFT LOWER LOBE PNEUMONIA, RSV INFECTION LEFT LOWER LOBE PNEUMONIA, RSV INFECTION LEFT LOWER LOBE PNEUMONIA, RSV INFECTION Reason for Visit Synovial cyst of pop liteal space [Desai], left knee Pain of left calf Flu vaccine need Abdominal pain, epigastric Anxiety and depression Chronic respiratory failure Hypertension Type 2 diabetes mellitus Acidosis, lactic Acute exacerbation of chronic obstructive pulmonary disease Failure of outpatient treatment Cardiopulmonary arrest with successful resuscitation History of CAD (coronary artery disease) History of diabetes mellitus Anaphylaxis Atrial fibrillation with rapid ventricular response Cardiac arrest with pulseless electrical activity Respiratory failure Asthma with COPD Chronic respiratory failure Smoking greater than 40 pack years HLD (hyperlipidemia) CHF (congestive heart failure) Hypertension Acute dyspnea Hyponatremia Left lower lobe pneumonia RSV infection Acute exacerbation of chronic obstructive pulmonary disease (COPD) Chronic hypoxemic respiratory failure Chief Complaint LEFT KNEE 3 m fu general illness COPD EXA, PNEUMONIA COPD EXA, PNEUMONIA S/P CODE BLUE AFTER CTPA S/P CODE BLUE AFTER CTPA S/P CODE BLUE AFTER CTPA S/P CODE BLUE AFTER CTPA S/P CODE BLUE AFTER CTPA S/P CODE BLUE AFTER CTPA S/P CODE BLUE AFTER CTPA S/P CODE BLUE AFTER CTPA S/P CODE BLUE AFTER CTPA S/P CODE BLUE AFTER CTPA S/P CODE BLUE AFTER CTPA S/P CODE BLUE AFTER CTPA S/P CODE BLUE AFTER CTPA LAB WORK LABWORK LONG TERM LABWORK LONG TERM LAB WORK LONG TERM LAB WORK 4 M LONG TERM LABWORK MED CHANGE LEFT LOWER LOBE PNEUMONIA, RSV INFECTION LEFT LOWER LOBE PNEUMONIA, RSV INFECTION LEFT LOWER LOBE PNEUMONIA, RSV INFECTION LEFT LOWER LOBE PNEUMONIA, RSV INFECTION LEFT LOWER LOBE PNEUMONIA, RSV INFECTION LEFT LOWER LOBE PNEUMONIA, RSV INFECTION LABWORK Reason for Visit Synovial cyst of pop liteal space [Desai], left knee Pain of left calf Flu vaccine need Abdominal pain, epigastric Anxiety and depression Chronic respiratory failure Hypertension Type 2 diabetes mellitus Acidosis, lactic Acute exacerbation of chronic obstructive pulmonary disease Failure of outpatient treatment Cardiopulmonary arrest with successful resuscitation History of CAD (coronary artery disease) History of diabetes mellitus Anaphylaxis Atrial fibrillation with rapid ventricular response Cardiac arrest with pulseless electrical activity Respiratory failure Asthma with COPD Chronic respiratory failure Smoking greater than 40 pack years HLD (hyperlipidemia) CHF (congestive heart failure) Hypertension Chronic hypoxemic respiratory failure Acute dyspnea Acute exacerbation of chronic obstructive pulmonary disease (COPD) Hyponatremia Left lower lobe pneumonia RSV infection Chief Complaint LONG TERM LABWORK LONG TERM LAB WORK LONG TERM LAB WORK 4 M LONG TERM LABWORK MED CHANGE LEFT LOWER LOBE PNEUMONIA, RSV INFECTION LEFT LOWER LOBE PNEUMONIA, RSV INFECTION LEFT LOWER LOBE PNEUMONIA, RSV INFECTION LEFT LOWER LOBE PNEUMONIA, RSV INFECTION LEFT LOWER LOBE PNEUMONIA, RSV INFECTION LEFT LOWER LOBE PNEUMONIA, RSV INFECTION LABWORK LONG TERM LAB WORK LONG TERM LAB WORK Reason for Visit Asthma with COPD Chronic respiratory failure Smoking greater than 40 pack years HLD (hyperlipidemia) CHF (congestive heart failure) Hypertension Chronic hypoxemic respiratory failure Acute dyspnea Acute exacerbation of chronic obstructive pulmonary disease (COPD) Hyponatremia Left lower lobe pneumonia RSV infection Chief Complaint LONG TERM LABWORK LONG TERM LAB WORK LONG TERM LAB WORK 4 M FU LONG TERM LABWORK MED CHANGE LEFT LOWER LOBE PNEUMONIA, RSV INFECTION LEFT LOWER LOBE PNEUMONIA, RSV INFECTION LEFT LOWER LOBE PNEUMONIA, RSV INFECTION LEFT LOWER LOBE PNEUMONIA, RSV INFECTION LEFT LOWER LOBE PNEUMONIA, RSV INFECTION LEFT LOWER LOBE PNEUMONIA, RSV INFECTION LABWORK LONG TERM LAB WORK LONG TERM LAB WORK LONG TERM LAB WORK Reason for Visit Asthma with COPD Chronic respiratory failure Smoking greater than 40 pack years HLD (hyperlipidemia) CHF (congestive heart failure) Hypertension Chronic hypoxemic respiratory failure Acute dyspnea Acute exacerbation of chronic obstructive pulmonary disease (COPD) Hyponatremia Left lower lobe pneumonia RSV infection Chief Complaint LONG TERM LAB WOR K LONG TERM LAB WORK 4 M FU LONG TERM LABWORK MED CHANGE LEFT LOWER LOBE PNEUMONIA, RSV INFECTION LEFT LOWER LOBE PNEUMONIA, RSV INFECTION LEFT LOWER LOBE PNEUMONIA, RSV INFECTION LEFT LOWER LOBE PNEUMONIA, RSV INFECTION LEFT LOWER LOBE PNEUMONIA, RSV INFECTION LEFT LOWER LOBE PNEUMONIA, RSV INFECTION LABWORK LONG TERM LAB WORK LONG TERM LAB WORK LONG TERM LAB WORK LONG TERM LAB WORK DYSPHASIA Reason for Visit Asthma with COPD Chronic respiratory failure Smoking greater than 40 pack years HLD (hyperlipidemia) CHF (congestive heart failure) Hypertension Chronic hypoxemic respiratory failure Acute dyspnea Acute exacerbation of chronic obstructive pulmonary disease (COPD) Hyponatremia Left lower lobe pneumonia RSV infection Chief Complaint LONG TERM LAB WOR K LONG TERM LAB WORK 4 M FU LONG TERM LABWORK MED CHANGE LEFT LOWER LOBE PNEUMONIA, RSV INFECTION LEFT LOWER LOBE PNEUMONIA, RSV INFECTION LEFT LOWER LOBE PNEUMONIA, RSV INFECTION LEFT LOWER LOBE PNEUMONIA, RSV INFECTION LEFT LOWER LOBE PNEUMONIA, RSV INFECTION LEFT LOWER LOBE PNEUMONIA, RSV INFECTION LABWORK LONG TERM LAB WORK LONG TERM LAB WORK LONG TERM LAB WORK LONG TERM LAB WORK DYSPHASIA LABWORK Reason for Visit Asthma with COPD Chronic respiratory failure Smoking greater than 40 pack years HLD (hyperlipidemia) CHF (congestive heart failure) Hypertension Chronic hypoxemic respiratory failure Acute dyspnea Acute exacerbation of chronic obstructive pulmonary disease (COPD) Hyponatremia Left lower lobe pneumonia RSV infection Chief Complaint LONG TERM LABWORK MED CHANGE LEFT LOWER LOBE PNEUMONIA, RSV INFECTION LEFT LOWER LOBE PNEUMONIA, RSV INFECTION LEFT LOWER LOBE PNEUMONIA, RSV INFECTION LEFT LOWER LOBE PNEUMONIA, RSV INFECTION LEFT LOWER LOBE PNEUMONIA, RSV INFECTION LEFT LOWER LOBE PNEUMONIA, RSV INFECTION LABWORK LONG TERM LAB WORK LONG TERM LAB WORK LONG TERM LAB WORK LONG TERM LAB WORK DYSPHASIA LABWORK LABWORK LABWORK Reason for Visit HLD (hyperlipidemia) CHF (congestive heart failure) Hypertension Chronic hypoxemic respiratory failure Acute dyspnea Acute exacerbation of chronic obstructive pulmonary disease (COPD) Hyponatremia Left lower lobe pneumonia RSV infection Chief Complaint LONG TERM LABWORK MED CHANGE LEFT LOWER LOBE PNEUMONIA, RSV INFECTION LEFT LOWER LOBE PNEUMONIA, RSV INFECTION LEFT LOWER LOBE PNEUMONIA, RSV INFECTION LEFT LOWER LOBE PNEUMONIA, RSV INFECTION LEFT LOWER LOBE PNEUMONIA, RSV INFECTION LEFT LOWER LOBE PNEUMONIA, RSV INFECTION LABWORK LONG TERM LAB WORK LONG TERM LAB WORK LONG TERM LAB WORK LONG TERM LAB WORK DYSPHASIA LABWORK LABWORK LABWORK NONTOXIC SINGLE THYROID NODULE Reason for Visit HLD (hyperlipidemia) CHF (congestive heart failure) Hypertension Chronic hypoxemic respiratory failure Acute dyspnea Acute exacerbation of chronic obstructive pulmonary disease (COPD) Hyponatremia Left lower lobe pneumonia RSV infection Chief Complaint LONG TERM LABWORK MED CHANGE LEFT LOWER LOBE PNEUMONIA, RSV INFECTION LEFT LOWER LOBE PNEUMONIA, RSV INFECTION LEFT LOWER LOBE PNEUMONIA, RSV INFECTION LEFT LOWER LOBE PNEUMONIA, RSV INFECTION LEFT LOWER LOBE PNEUMONIA, RSV INFECTION LEFT LOWER LOBE PNEUMONIA, RSV INFECTION LABWORK LONG TERM LAB WORK LONG TERM LAB WORK LONG TERM LAB WORK LONG TERM LAB WORK DYSPHASIA LABWORK LABWORK LABWORK NONTOXIC SINGLE THYROID NODULE LABWORK LONG TERM LAB WORK UTI Reason for Visit HLD (hyperlipidemia) CHF (congestive heart failure) Hypertension Chronic hypoxemic respiratory failure Acute dyspnea Acute exacerbation of chronic obstructive pulmonary disease (COPD) Hyponatremia Left lower lobe pneumonia RSV infection Chief Complaint Admit Date 3 M FU July 03, 2024 2:00pm WEAKNESS July 04, 2024 2:19pm LONG TERM LAB WORK July 13, 2024 5:00am chest pain August 02, 2024 8:53pm Respiratory infection August 14, 2024 1:00pm 4 M FU August 24, 2024 2 :48pm 3 m fu September 01, 2024 2 :24pm J96.11 - Chronic respiratory failure wit h hypoxia September 14, 2024 2:01pm J96.11 - Chronic respiratory failure wit h hypoxia September 18, 2024 12:22pm LONG TERM LAB WORK October 12, 2024 6: 58am ACUTE STOMACH PAIN AND DIARRHEA October 192024 12:23pm Reason for Visit Admit Date Atherosclerosis of coronary artery Novem 2023 2:00pm Cardiopulmonary arrest with successful r esuscitation July 03, 2024 2:00pm Chronic respiratory failure June 2:00pm Acute exacerbation of chroni c obstructive pulmonary disease August 14, 2024 1:00pm Sinusitis August 14, 2024 1: 00pm Chronic hypoxemic respiratory failure Ja nuary 2024 1:00pm Asthma with COPD August 24, 2024 2 :48pm Chronic respiratory failure August 2:48pm Smoking greater than 40 pack years Zahida ry 2024 2:48pm Acute exacerbation of chroni c obstructive pulmonary disease September 01, 2024 2:24pm Muscle ache of extremity September 01, 2 025 2:24pm Anxiety and depression September 01 2:24pm Hypertension September 01, 2024 2 :24pm Insomnia September 01, 2024 2 :24pm Type 2 diabetes mellitus September 01, 2 025 2:24pm Irritable bowel syndrome with constipati on October 19, 2024 12:23pm Muscle ache of extremity October 19 12:23pm Sore throat October 19, 2024 12: 23pm Chief Complaint Admit Date 3 m fu September 01, 2024 2 :24pm J96.11 - Chronic respiratory failure wit h hypoxia September 14, 2024 2:01pm J96.11 - Chronic respiratory failure wit h hypoxia September 18, 2024 12:22pm LONG TERM LAB WORK October 12, 2024 6: 58am ACUTE STOMACH PAIN AND DIARRHEA October 192024 12:23pm 3 M FU December 04, 2024 3:0 3pm edema December 23, 2024 11:13 pm Reason for Visit Admit Date Acute exacerbation of chronic obstructiv e pulmonary disease September 01, 2024 2:24pm Muscle ache of extremity September 01, 2 025 2:24pm Anxiety and depression September 01 2:24pm Hypertension September 01, 2024 2 :24pm Insomnia September 01, 2024 2 :24pm Type 2 diabetes mellitus September 01, 2 025 2:24pm Muscle ache of extremity October 19 12:23pm Sore throat October 19, 2024 12: 23pm Irritable bowel syndrome with constipati on October 19, 2024 12:23pm Anxiety and depression December 04, 2024 3:03pm Hypertension December 04, 2024 3:0 3pm Irritable bowel syndrome with constipati on December 04, 2024 3:03pm Type 2 diabetes mellitus December 04 3:03pm Chief Complaint Admit Date J96.11 - Chronic respiratory failure wit h hypoxia September 14, 2024 2:01pm J96.11 - Chronic respiratory failure wit h hypoxia September 18, 2024 12:22pm LONG TERM LAB WORK October 12, 2024 6: 58am ACUTE STOMACH PAIN AND DIARRHEA October 192024 12:23pm 3 M FU December 04, 2024 3:0 3pm edema December 23, 2024 11:13 pm [facility] FOLLOW UP January 05, 2025 1:14p m Reason for Visit Admit Date Muscle ache of extremity October 19 12:23pm Sore throat October 19, 2024 12: 23pm Irritable bowel syndrome with constipati on October 19, 2024 12:23pm Anxiety and depression December 04, 2024 3:03pm Hypertension December 04, 2024 3:0 3pm Irritable bowel syndrome with constipati on December 04, 2024 3:03pm Type 2 diabetes mellitus December 04 3:03pm Neck swelling January 05, 2025 1:14p m Reason for Visit Admit Date Muscle ache of extremity October 19 12:23pm Sore throat October 19, 2024 12: 23pm Irritable bowel syndrome with constipati on October 19, 2024 12:23pm Anxiety and depression December 04, 2024 3:03pm Hypertension December 04, 2024 3:0 3pm Irritable bowel syndrome with constipati on December 04, 2024 3:03pm Type 2 diabetes mellitus December 04 3:03pm Neck swelling January 05, 2025 1:14p m Supraclavicular adenopathy January 05 1:14pm Chief Complaint Admit Date LONG TERM LAB WORK October 12, 2024 6: 58am ACUTE STOMACH PAIN AND DIARRHEA October 192024 12:23pm 3 M FU December 04, 2024 3:0 3pm edema December 23, 2024 11:13 pm [facility] FOLLOW UP January 05, 2025 1:14p m SMOKING QUIT 2018January 22, 2025 3:44 pm Chief Complaint Admit Date LONG TERM LAB WORK October 12, 2024 6: 58am ACUTE STOMACH PAIN AND DIARRHEA October 192024 12:23pm 3 M FU December 04, 2024 3:0 3pm edema December 23, 2024 11:13 pm [facility] FOLLOW UP January 05, 2025 1:14p m LONG TERM LAB WORK January 11, 2025 5:0 0am SMOKING QUIT 2018January 22, 2025 3:44 pm 5 m fu February 08, 2025 1:46p m Reason for Visit Admit Date Muscle ache of extremity October 19 12:23pm Sore throat October 19, 2024 12: 23pm Irritable bowel syndrome with constipati on October 19, 2024 12:23pm Anxiety and depression December 04, 2024 3:03pm Hypertension December 04, 2024 3:0 3pm Irritable bowel syndrome with constipati on December 04, 2024 3:03pm Type 2 diabetes mellitus December 04 3:03pm Neck swelling January 05, 2025 1:14p m Supraclavicular adenopathy January 05 1:14pm Asthma with COPD February 08, 2025 1:46p m Chronic respiratory failure February 08 1:46pm Smoking greater than 40 pack years February 08, 2025 1:46pm Chief Complaint Admit Date ACUTE STOMACH PAIN AND DIARRHEA October 192024 12:23pm 3 M FU December 04, 2024 3:0 3pm edema December 23, 2024 11:13 pm WC FOLLOW UP January 05, 2025 1:14p m LONG TERM LAB WORK January 11, 2025 5:0 0am SMOKING QUIT 2018January 22, 2025 3:44 pm 5 m fu February 08, 2025 1:46p m ACUTE PAIN AND SWELLING IN LEGS AND FEET February 12, 2025 12:46pm Chief Complaint Admit Date ACUTE STOMACH PAIN AND DIARRHEA October 192024 12:23pm 3 M FU December 04, 2024 3:0 3pm edema December 23, 2024 11:13 pm [facility] FOLLOW UP January 05, 2025 1:14p m LONG TERM LAB WORK January 11, 2025 5:0 0am SMOKING QUIT 2018January 22, 2025 3:44 pm 5 m fu February 08, 2025 1:46p m ACUTE PAIN AND SWELLING IN LEGS AND FEET February 12, 2025 12:46pm LT NECK SUPRACLAVICULAR SWELLING February 152024 1:08pm Reason for Visit Admit Date Muscle ache of extremity October 19 12:23pm Sore throat October 19, 2024 12: 23pm Irritable bowel syndrome with constipati on October 19, 2024 12:23pm Anxiety and depression December 04, 2024 3:03pm Hypertension December 04, 2024 3:0 3pm Irritable bowel syndrome with constipati on December 04, 2024 3:03pm Type 2 diabetes mellitus December 04 3:03pm Neck swelling January 05, 2025 1:14p m Supraclavicular adenopathy January 05 1:14pm Asthma with COPD February 08, 2025 1:46p m Chronic respiratory failure February 08 1:46pm Smoking greater than 40 pack years February 08, 2025 1:46pm Muscle ache of extremity February 12, 2025 12:46pm Neck swelling February 12, 2025 12:46 pm Chief Complaint Admit Date 3 M FU December 04, 2024 3:0 3pm edema December 23, 2024 11:13 pm [facility] FOLLOW UP January 05, 2025 1:14p m LONG TERM LAB WORK January 11, 2025 5:0 0am SMOKING QUIT 2018January 22, 2025 3:44 pm 5 m fu February 08, 2025 1:46p m ACUTE PAIN AND SWELLING IN LEGS AND FEET February 12, 2025 12:46pm LT NECK SUPRACLAVICULAR SWELLING February 152024 1:08pm NODULE February 19, 2025 12:3 5pm Reason for Visit Admit Date Anxiety and depression December 04, 2024 3:03pm Hypertension December 04, 2024 3:0 3pm Irritable bowel syndrome with constipati on December 04, 2024 3:03pm Type 2 diabetes mellitus December 04 3:03pm Neck swelling January 05, 2025 1:14p m Supraclavicular adenopathy January 05 1:14pm Asthma with COPD February 08, 2025 1:46p m Chronic respiratory failure February 08 1:46pm Smoking greater than 40 pack years February 08, 2025 1:46pm Muscle ache of extremity February 12, 2025 12:46pm Neck swelling February 12, 2025 12:46 pm Chief Complaint Admit Date 3 M FU December 04, 2024 3:0 3pm edema December 23, 2024 11:13 pm WC FOLLOW UP January 05, 2025 1:14p m LONG TERM LAB WORK January 11, 2025 5:0 0am SMOKING QUIT 2018January 22, 2025 3:44 pm 5 m fu February 08, 2025 1:46p m ACUTE PAIN AND SWELLING IN LEGS AND FEET February 12, 2025 12:46pm LT NECK SUPRACLAVICULAR SWELLING February 152024 1:08pm NODULE February 19, 2025 12:3 5pm 3 M FU March 08, 2025 2:21 pm Chief Complaint Admit Date 3 M FU December 04, 2024 3:0 3pm edema December 23, 2024 11:13 pm [facility] FOLLOW UP January 05, 2025 1:14p m LONG TERM LAB WORK January 11, 2025 5:0 0am SMOKING QUIT 2018January 22, 2025 3:44 pm 5 m fu February 08, 2025 1:46p m ACUTE PAIN AND SWELLING IN LEGS AND FEET February 12, 2025 12:46pm LT NECK SUPRACLAVICULAR SWELLING February 152024 1:08pm NODULE February 19, 2025 12:3 5pm 3 M FU March 08, 2025 2:21 pm Boil on labia March 27, 2025 12 :41pm Reason for Visit Admit Date Anxiety and depression December 04, 2024 3:03pm Hypertension December 04, 2024 3:0 3pm Irritable bowel syndrome with constipati on December 04, 2024 3:03pm Type 2 diabetes mellitus December 04 3:03pm Neck swelling January 05, 2025 1:14p m Supraclavicular adenopathy January 05 1:14pm Asthma with COPD February 08, 2025 1:46p m Chronic respiratory failure February 08 1:46pm Smoking greater than 40 pack years February 08, 2025 1:46pm Muscle ache of extremity February 12, 2025 12:46pm Neck swelling February 12, 2025 12:46 pm Neck swelling March 08, 2025 2:21 pm GERD (gastroesophageal reflux disease) [facility] 2024 2:21pm Hypertension March 08, 2025 2:21 pm Type 2 diabetes mellitus March 08, 2025 2:21pm Chief Complaint Admit Date 3 M FU December 04, 2024 3:0 3pm edema December 23, 2024 11:13 pm [facility] FOLLOW UP January 05, 2025 1:14p m LONG TERM LAB WORK January 11, 2025 5:0 0am SMOKING QUIT 2019 January 22, 2025 3:44 pm 5 m fu February 08, 2025 1:46p m ACUTE PAIN AND SWELLING IN LEGS AND FEET February 12, 2025 12:46pm LT NECK SUPRACLAVICULAR SWELLING February 152024 1:08pm NODULE February 19, 2025 12:3 5pm 3 M FU March 08, 2025 2:21 pm Boil on labia March 27, 2025 12 :41pm Vulva Abscess *per Santy/Fortino March 30, 2025 1:47pm Reason for Visit Admit Date Anxiety and depression December 04, 2024 3:03pm Hypertension December 04, 2024 3:0 3pm Irritable bowel syndrome with constipati on December 04, 2024 3:03pm Type 2 diabetes mellitus December 04 3:03pm Neck swelling January 05, 2025 1:14p m Supraclavicular adenopathy January 05 1:14pm Asthma with COPD February 08, 2025 1:46p m Chronic respiratory failure February 08 1:46pm Smoking greater than 40 pack years February 08, 2025 1:46pm Muscle ache of extremity February 12, 2025 12:46pm Neck swelling February 12, 2025 12:46 pm Neck swelling March 08, 2025 2:21 pm GERD (gastroesophageal reflux disease) [facility] 2024 2:21pm Hypertension March 08, 2025 2:21 pm Type 2 diabetes mellitus March 08, 2025 2:21pm Vulvar abscess March 27, 2025 12 :41pm Chief Complaint Admit Date edema December 23, 2024 11:13 pm [facility] FOLLOW UP January 05, 2025 1:14p m LONG TERM LAB WORK January 11, 2025 5:0 0am SMOKING QUIT 2018January 22, 2025 3:44 pm 5 m fu February 08, 2025 1:46p m ACUTE PAIN AND SWELLING IN LEGS AND FEET February 12, 2025 12:46pm LT NECK SUPRACLAVICULAR SWELLING February 152024 1:08pm NODULE February 19, 2025 12:3 5pm 3 M FU March 08, 2025 2:21 pm Boil on labia March 27, 2025 12 :41pm Vulva Abscess *per Santy/Fortino March 30, 2025 1:47pm Reason for Visit Admit Date Neck swelling January 05, 2025 1:14p m Supraclavicular adenopathy January 05 1:14pm Asthma with COPD February 08, 2025 1:46p m Chronic respiratory failure February 08 1:46pm Smoking greater than 40 pack years February 08, 2025 1:46pm Muscle ache of extremity February 12, 2025 12:46pm Neck swelling February 12, 2025 12:46 pm Neck swelling March 08, 2025 2:21 pm GERD (gastroesophageal reflux disease) J donald 2024 2:21pm Hypertension March 08, 2025 2:21 pm Type 2 diabetes mellitus March 08, 2025 2:21pm Vulvar abscess March 27, 2025 12 :41pm Vulvar abscess March 30, 2025 1: 47pm Chief Complaint Admit Date edema December 23, 2024 11:13 pm [facility] FOLLOW UP January 05, 2025 1:14p m LONG TERM LAB WORK January 11, 2025 5:0 0am SMOKING QUIT 2018January 22, 2025 3:44 pm 5 m fu February 08, 2025 1:46p m ACUTE PAIN AND SWELLING IN LEGS AND FEET February 12, 2025 12:46pm LT NECK SUPRACLAVICULAR SWELLING February 152024 1:08pm NODULE February 19, 2025 12:3 5pm 3 M FU March 08, 2025 2:21 pm Boil on labia March 27, 2025 12 :41pm Vulva Abscess *per Elijahe/Ungerer March 30, 2025 1:47pm Follow up after 2 antibiotics April 12, 2025 1:44pm Chief Complaint Admit Date LONG TERM LAB WORK January 11, 2025 5:0 0am SMOKING QUIT 2019 January 22, 2025 3:44 pm 5 m fu February 08, 2025 1:46p m ACUTE PAIN AND SWELLING IN LEGS AND FEET February 12, 2025 12:46pm LT NECK SUPRACLAVICULAR SWELLING February 152024 1:08pm NODULE February 19, 2025 12:3 5pm 3 M FU March 08, 2025 2:21 pm Boil on labia March 27, 2025 12 :41pm Vulva Abscess *per Elijahe/Tamikoerer March 30, 2025 1:47pm LONG TERM LAB WORK April 12 5:00am Follow up after 2 antibiotics April 12, 2025 1:44pm Acute sick April 27, 2025 11:06am EORDERS April 27, 2025 11:56am Reason for Visit Admit Date Asthma with COPD February 08, 2025 1:46p m Chronic respiratory failure February 08 1:46pm Smoking greater than 40 pack years February 08, 2025 1:46pm Muscle ache of extremity February 12, 2025 12:46pm Neck swelling February 12, 2025 12:46 pm Neck swelling March 08, 2025 2:21 pm GERD (gastroesophageal reflux disease) J donald 2024 2:21pm Hypertension March 08, 2025 2:21 pm Type 2 diabetes mellitus March 08, 2025 2:21pm Vulvar abscess March 27, 2025 12 :41pm Vulvar abscess March 30, 2025 1: 47pm Vaginal itching April 12, 2025 1:44pm Vulvar abscess April 12, 2025 1:44pm Pneumonia April 27, 2025 11:06am Shortness of breath April 27, 2025 11:06am Asthma with COPD April 27, 2025 11:06am Chronic respiratory failure April 272024 11:06am Chief Complaint Admit Date 5 m fu February 08, 2025 1:46p m ACUTE PAIN AND SWELLING IN LEGS AND FEET February 12, 2025 12:46pm LT NECK SUPRACLAVICULAR SWELLING February 152024 1:08pm NODULE February 19, 2025 12:3 5pm 3 M FU March 08, 2025 2:21 pm Boil on labia March 27, 2025 12 :41pm Vulva Abscess *per Olesarabjite/Ungerer March 30, 2025 1:47pm LONG TERM LAB WORK April 12 5:00am Follow up after 2 antibiotics April 12, 2025 1:44pm Acute sick April 27, 2025 11:06am EORDERS April 27, 2025 11:56am Vaginal Discharge/itching May 23, 2025 1:42pm Reason for Visit Admit Date Asthma with COPD February 08, 2025 1:46p m Chronic respiratory failure February 08 1:46pm Smoking greater than 40 pack years February 08, 2025 1:46pm Muscle ache of extremity February 12, 2025 12:46pm Neck swelling February 12, 2025 12:46 pm Neck swelling March 08, 2025 2:21 pm GERD (gastroesophageal reflux disease) J donald 2024 2:21pm Hypertension March 08, 2025 2:21 pm Type 2 diabetes mellitus March 08, 2025 2:21pm Vulvar abscess March 27, 2025 12 :41pm Vulvar abscess March 30, 2025 1: 47pm Vaginal itching April 12, 2025 1:44pm Vulvar abscess April 12, 2025 1:44pm Pneumonia April 27, 2025 11:06am Shortness of breath April 27, 2025 11:06am Asthma with COPD April 27, 2025 11:06am Chronic respiratory failure April 272024 11:06am Vaginal itching May 23, 2025 1 :42pm Yeast dermatitis May 23, 2025 1 :42pm Additional Source Comments Source Comments (unrecognize d section and content) In the event this informatio n is protected by the Federal Confidentiality of Alcohol and Drug Abuse Patient Records regulations: The Federal rules restrict any use of the information to criminally investigate or prosecute any alcohol or drug abuse patient.[facility] the event this information is protected by the Federal Confidentiality of Alcohol and Drug Abuse Patient Records regulations: The Federal rules restrict any use of the information to criminally investigate or prosecute any alcohol or drug abuse patient.[facility] INFORMATION SOURCE (unrecogn ized section and content) DATE CREATED AUTHOR 10/23/2020 [facility] DATE CREATED AUTHOR AUTHOR'S ORGANIZ ATION 05/25/2025 [facility] DATE CREATED AUTHOR AUTHOR'S ORGANIZ ATION 06/12/2025 [facility] Goals (unrecognized section and content) Goals may be documented in a n alternate sectionGoals may be documented in an alternate sectionGoals may be documented in an alternate sectionGoals may be documented in an alternate sectionGoals may be documented in an alternate sectionGoals may be documented in an alternate sectionGoals may be documented in an alternate sectionGoals may be documented in an alternate sectionGoals may be documented in an alternate sectionGoals may be documented in an alternate sectionGoals may be documented in an alternate sectionGoals may be documented in an alternate sectionGoals may be documented in an alternate sectionGoals may be documented in an alternate sectionGoals may be documented in an alternate sectionGoals may be documented in an alternate sectionGoals may be documented in an alternate sectionGoals may be documented in an alternate sectionGoals may be documented in an alternate sectionGoals may be documented in an alternate sectionGoals may be documented in an alternate sectionGoals may be documented in an alternate sectionGoals may be documented in an alternate sectionGoals may be documented in an alternate sectionGoals may be documented in an alternate sectionGoals may be documented in an alternate sectionGoals may be documented in an alternate sectionGoals may be documented in an alternate sectionGoals may be documented in an alternate sectionGoals may be documented in an alternate sectionGoals may be documented in an alternate sectionGoals may be documented in an alternate sectionGoals may be documented in an alternate sectionGoals may be documented in an alternate sectionGoals may be documented in an alternate sectionGoals may be documented in an alternate sectionGoals may be documented in an alternate section Care Teams (unrecognized sec tion and content) Team Status: Active Member Role Status Dates Dr. Mike Richard MD Family Provider Active Dr. Billy Madera MD Primary Care Provider Active Team Status: Inactive Member Role Status Dates Dr. Billy Madera MD Primary Care P florian, Attending Provider, Referring Provider Active Team Status: Inactive Member Role Status Dates Dr. Billy Madera MD Primary Care Provider, Refer ring Provider Active LOUISE Wade Attending Provider Active Team Status: Inactive Member Role Status Dates Dr. Billy Madera MD Primary Care Provider Active Dr. Jose Gonzalez DO Attending Provider, Emergency Provider Active Team Status: Inactive Member Role Status Dates Dr. Billy Madera MD Primary Care Provider Active Dr. Jose Luis Goodwin DO Attending Provider, Emergency Provide r Active Team Status: Active Member Role Status Dates Dr. Billy Madera MD Primary Care Provider Active LOUISE Wade Attending Provider, Referring Pro vider Active Team Status: Inactive Member Role Status Dates Dr. Billy Madera MD Primary Care Provider Active Dr. Jose Luis Goodwin DO Emergency Provider Active Team Status: Inactive Member Role Status Dates Dr. Billy Madera MD Primary Care Provider Active Dr. Mariah Miller MD Emergency Provider Active Team Status: Inactive Member Role Status Dates Dr. Billy Madera MD Primary Care Provider Active LOUISE Wade Attending Provider, Referring Pro vider Active Team Status: Inactive Member Role Status Dates Dr. Billy Madera MD Primary Care Provider, Refer ring Provider Active Dr. Haroon Nuno MD Attending Provider Active Team Status: Inactive Member Role Status Dates Dr. Billy Madera MD Primary Care Provider Active Dr. Mariah Miller MD Attending Provider, Emergency Provider Active Team Status: Inactive Member Role Status Dates Dr. Billy Madera MD Primary Care Provider Active Dr. Sandeep Fong MD Emergency Provider Active Team Status: Inactive Member Role Status Dates Dr. Billy Madera MD Primary Care Provider Active Dr. Sandeep Fong MD Attending Provider, Emergency Provider Active Team Status: Inactive Member Role Status Dates Dr. Billy Madera MD Primary Care Provider Active Dr. Marko Smith DO Emergency Provider Active Team Status: Inactive Member Role Status Dates Dr. Billy Madera MD Primary Care Provider, Refer ring Provider Active Michelle Givens AIR CREW SUPERVISOR, AIR CREW SUPERVISOR-C Attending Provider Active Team Status: Inactive Member Role Status Dates Dr. Billy Madera MD Primary Care Provider Active Dr. Marko Smith DO Attending Provider, Emergency Pr ovider Active Team Status: Inactive Member Role Status Dates Dr. Billy Madera MD Primary Care Provider, Refer ring Provider Active Jennifer Aguilar NP-C Attending Provider Active Team Status: Inactive Member Role Status Dates Michelle Givens AIR CREW SUPERVISOR, AIR CREW SUPERVISOR-C Attending Provider, Referrin g Provider Active Dr. Billy Madera MD Primary Care Provider Active Team Status: Active Member Role Status Dates Dr. Billy Madera MD Primary Care Provider Active Dr. Omi Frazier DO Emergency Provider Active Dr. Aracelis Gamez MD Admit Provider, Attending Provider, Other Provider Active Team Status: Active Member Role Status Dates Dr. Billy Madera MD Primary Care Provider Active Dr. Omi Frazier DO Emergency Provider Active Dr. Aracelis Gamez MD Admit Provider, Referring Provider, Other Provider Active Dr. Nico Sweet MD Other Provider Active Dr. Michelle Clarke MD Attending Provider, Other Provid er Active Team Status: Active Member Role Status Dates Dr. Billy Madera MD Primary Care Provider Active Dr. Omi Frazier DO Emergency Provider Active Dr. Aracelis Gamez MD Admit Provider, Other Provider Active Dr. Nico Sweet MD Attending Provider, Other Provi jeimy Active Dr. Michelle Clarke MD Other Provider Active Team Status: Inactive Member Role Status Dates Dr. Billy Madera MD Primary Care Provider Active Dr. Omi Frazier DO Emergency Provider Active Dr. Aracelis Gamez MD Admit Provider, Referring Provider, Other Provider Active Dr. Nico Sweet MD Attending Provider Active Dr. Michelle Clarke MD Other Provider Active Team Status: Inactive Member Role Status Dates Dr. Billy Madera MD Primary Care Provider Active Dr. Marko Smith DO Referring Provider, Emergency Pr ovider Active Team Status: Inactive Member Role Status Dates Dr. Billy Madera MD Primary Care Provider, Refer ring Provider Active [place]ans[place] GIL, [place] Attending Provider Active Team Status: Inactive Member Role Status Dates Dr. Billy Madera MD Primary Care Provider Active Dr. Wade Ferguson MD Attending Provider Active Team Status: Active Member Role Status Dates Dr. Billy Madera MD Primary Care Provider Active Dr. Mariah Miller MD Emergency Provider Active Dr. Yuan Singh MD Admit Provider, Attending Provider, Other Provider Active Team Status: Active Member Role Status Dates Dr. Billy Madera MD Primary Care Provider Active Dr. Mariah Miller MD Emergency Provider Active Dr. Yuan Singh MD Admit Provider, Other Provide r Active Dr. Cindi Moraes DO Attending Provider, Other Provide r Active Team Status: Inactive Member Role Status Dates Dr. Billy Madera MD Primary Care Provider Active Dr. Marko Smith DO Attending Provider , Referring Provider, Emergency Provider Active Team Status: Inactive Member Role Status Dates Dr. Billy Madera MD Primary Care Provider Active Dr. Mariah Miller MD Emergency Provider Active Dr. Yuan Singh MD Admit Provider, Other Provide r Active Dr. Cindi Moraes DO Attending Provider Active Team Status: Inactive Member Role Status Dates Dr. Billy Madera MD Primary Care Provider, Atten ding Provider Active Team Status: Inactive Member Role Status Dates Dr. Billy Madera MD Primary Care Provider, Refer ring Provider Active Kaci Díaz AIR CREW SUPERVISOR, AIR CREW SUPERVISOR-C Attending Provider Active Team Status: Inactive Member Role Status Dates Dr. Billy Madera MD Primary Care Provider, Refer ring Provider Active [place] GIL, [place] Attending Provider Active Team Status: Inactive Member Role Status Dates Dr. Billy Madera MD Primary Care Provider Active Dr. Pasha Thornton MD Emergency Provider Active Team Status: Inactive Member Role Status Dates Dr. Billy Madera MD Primary Care Provider Active Dr. Pasha Thornton MD Attending Provider, Emergency Provi jeimy Active Team Status: Inactive Member Role Status Dates Dr. Billy Madera MD Primary Care Provider Active Dr. Sera Aguilar DO Emergency Provider Active Team Status: Inactive Member Role Status Dates Dr. Billy Madera MD Primary Care Provider Active Dr. Sera Aguilar DO Attending Provider, Emergency P florian Active Team Status: Inactive Member Role Status Dates Dr. Billy Madera MD Primary Care Provider Active Dr. Sandeep Fong MD Emergency Provider Active Dr. Nico wSeet MD Admit Provider, Other Provider Active Dr. Kimberly Armstrong MD Attending Provider Active Team Status: Active Member Role Status Dates Dr. Billy Madera MD Primary Care Provider Active Dr. Sandeep Fong MD Emergency Provider Active Dr. Nico Sweet MD Admit Provider, Other Provider Active Dr. Kimberly Armstrong MD Attending Provider, Other Prov ider Active Team Status: Active Member Role Status Dates Dr. Billy Madera MD Primary Care Provider Active Dr. Jacky Holland MD Emergency Provider Active Dr. Nico Sweet MD Admit Provider, Attending Provi jeimy Active Dr. Haroon Nuno MD Other Provider Active Dr. Korey Fraser , Other Provider Active Dr. Inez Bello MD Other Provider Active Dr. Dimitry Olmedo MD Other Provider Active Dr. Chapito Trejo MD Other Provider Active Michelle Givens AIR CREW SUPERVISOR, AIR CREW SUPERVISOR-C Other Provider Active Team Status: Active Member Role Status Dates Dr. Billy Madera MD Primary Care Provider Active Dr. Jacky Holland MD Emergency Provider Active Dr. Nico Sweet MD Admit Provider, Other Provider Active Dr. Haroon Nuno MD Other Provider Active Dr. Korey Fraser DO Other Provider Active Dr. Inez Bello MD Other Provider Active Dr. Dimitry Olmedo MD Other Provider Active Dr. Chapito Trejo MD Other Provider Active Michelle Givens AIR CREW SUPERVISOR, AIR CREW SUPERVISOR-C Other Provider Active Dr. Enid Hernandez MD Attending Provider, Other Provid er Active Team Status: Active Member Role Status Dates Dr. Billy Madera MD Primary Care Provider Active Dr. Jacky Holland MD Emergency Provider Active Dr. Nico Sweet MD Admit Provider, Other Provider Active Dr. Haroon Nuno MD Attending Provider, Other Provid er Active Dr. Korey Fraser , Other Provider Active Dr. Inez Bello MD Other Provider Active Dr. Dimitry Olmedo MD Other Provider Active Dr. Chapito Trejo MD Other Provider Active Michelle Givens AIR CREW SUPERVISOR, AIR CREW SUPERVISOR-C Other Provider Active Dr. Enid Hernandez MD Other Provider Active Team Status: Active Member Role Status Dates Dr. Billy Madera MD Primary Care Provider Active Dr. Kenny Ibarra MD Attending Provider Active Team Status: Active Member Role Status Dates Dr. Billy Madera MD Primary Care Provider Active Dr. Jacky Holland MD Emergency Provider Active Dr. Nico Sweet MD Admit Provider, Other Provider Active Dr. Haroon Nuno MD Other Provider Active Dr. Korey Fraser , Other Provider Active Dr. Inez Bello MD Other Provider Active Dr. Dimitry Olmedo MD Other Provider Active Dr. Chapito Trejo MD Other Provider Active Michelle Givens AIR CREW SUPERVISOR, AIR CREW SUPERVISOR-C Other Provider Active Dr. Enid Hernandez MD Other Provider Active Dr. Kenny Ibarra MD Attending Provider, Other Provid er Active Team Status: Active Member Role Status Dates Dr. Billy Madera MD Primary Care Provider Active Dr. Jacky Holland MD Emergency Provider Active Dr. Nico Sweet MD Admit Provider, Other Provider Active Dr. Haroon Nuno MD Attending Provider, Other Provid er Active Dr. Kroey Fraser , Other Provider Active Dr. Inez Bello MD Other Provider Active Dr. Dimitry Olmedo MD Other Provider Active Dr. Chapito Trejo MD Other Provider Active Michelle Givens AIR CREW SUPERVISOR, AIR CREW SUPERVISOR-C Other Provider Active Dr. Enid Hernandez MD Other Provider Active Dr. Kenny Ibarra MD Other Provider Active Team Status: Active Member Role Status Dates Dr. Billy Madera MD Primary Care Provider Active Dr. Jacky Holland MD Emergency Provider Active Dr. Nico Sweet MD Admit Provider, Other Provider Active Dr. aHroon Nuno MD Other Provider Active Dr. Korey Fraser , Other Provider Active Dr. Inez Bello MD Other Provider Active Dr. Dimitry Olmedo MD Other Provider Active Dr. Chapito Trejo MD Other Provider Active Michelle Givens AIR CREW SUPERVISOR, AIR CREW SUPERVISOR-C Other Provider Active Dr. Enid Hernandez MD Attending Provider, Other Provid er Active Dr. Kenny Ibarra MD Other Provider Active Team Status: Inactive Member Role Status Dates Dr. Billy Madera MD Primary Care Provider Active Dr. Jacky Holland MD Emergency Provider Active Dr. Nico Sweet MD Admit Provider, Other Provider Active Dr. Haroon Nuno MD Other Provider Active Dr. Korey Fraser , Other Provider Active Dr. Inez Bello MD Other Provider Active Dr. Dimitry Olmedo MD Other Provider Active Dr. Chapito Trejo MD Other Provider Active Michelle Givens AIR CREW SUPERVISOR, AIR CREW SUPERVISOR-C Other Provider Active Dr. Enid Hernandez MD Attending Provider Active Dr. Kenny Ibarra MD Other Provider Active Team Status: Active Member Role Status Dates Dr. Billy Madera MD Primary Care Provider Active Dr. Jacky Holland MD Emergency Provider Active Dr. Nico Sweet MD Admit Provider, Other Provider Active Dr. Haroon Nuno MD Attending Provider, Other Provid er Active Dr. Korey Fraser , Other Provider Active Dr. Inez Bello MD Other Provider Active Dr. Dimitry Olmedo MD Other Provider Active Dr. Chapito Trejo MD Other Provider Active Michelle Givens NP, AIR CREW SUPERVISOR-C Other Provider Active Dr. Enid Hernandez MD Referring Provider, Other Provid er Active Team Status: Active Member Role Status Dates Dr. Billy Madera MD Primary Care Provider Active Dr. Kenny Ibarra MD Attending Provider, Referring Pr ovider Active Team Status: Active Member Role Status Dates Dr. Billy Madera MD Primary Care Provider Active Dr. Jacky Holland MD Emergency Provider Active Dr. Nico Sweet MD Admit Provider, Other Provider Active Dr. Haroon Nuno MD Other Provider Active Dr. Korey Fraser , Other Provider Active Dr. Inez Bello MD Other Provider Active Dr. Dimitry Olmedo MD Other Provider Active Dr. Chapito Trejo MD Other Provider Active Michelle Givens AIR CREW SUPERVISOR, AIR CREW SUPERVISOR-C Other Provider Active Dr. Enid Hernandez MD Other Provider Active Dr. Kenny Ibarra MD Attending Provider , Referring Provider, Other Provider Active Team Status: Active Member Role Status Dates Dr. Billy Madera MD Primary Care Provider Active Dr. Jacky Holland MD Emergency Provider Active Dr. Nico Sweet MD Admit Provider, Other Provider Active Dr. Haroon Nuno MD Attending Provider, Other Provid er Active Dr. Korey Fraser DO Other Provider Active Dr. Inez Bello MD Other Provider Active Dr. Dimitry Olmedo MD Other Provider Active Dr. Chapito Trejo MD Other Provider Active Michelle Givens AIR CREW SUPERVISOR, AIR CREW SUPERVISOR-C Other Provider Active Dr. Enid Hernandez MD Referring Provider, Other Provid er Active Dr. Kenny Ibarra MD Other Provider Active Team Status: Inactive Member Role Status Dates Dr. Billy Madera MD Primary Care Provider Active Ethan JAQUEZ Attending Provider, Referring Provide r Active Team Status: Active Member Role Status Dates Dr. Billy Madera MD Primary Care Provider Active Ethan JAQUEZ Attending Provider Active Team Status: Inactive Member Role Status Dates Dr. Billy Madera MD Primary Care Provider Active Ethan JAQUEZ Attending Provider Active Team Status: Active Member Role Status Dates Dr. Billy Madera MD Primary Care Provider Active Dr. Sera Aguilar DO Emergency Provider Active Dr. Jorge Lee DO Admit Provider, Attending Pro vider Active Team Status: Active Member Role Status Dates Dr. Billy Madera MD Primary Care Provider Active Dr. Sera Aguilar DO Emergency Provider Active Dr. Jorge Lee DO Admit Provider, Attending Provider, Other Provider Active Team Status: Inactive Member Role Status Dates Dr. Billy Madera MD Primary Care Provider Active Dr. Sera Aguilar DO Emergency Provider Active Dr. Jorge Lee DO Admit Provider, Attending Pro vider Active Team Status: Active Member Role Status Dates Dr. Billy Madera MD Primary Care Provider Active Dr. Brittney JAQUEZ MD Attending Provider Active Team Status: Inactive Member Role Status Dates Dr. Billy Madera MD Primary Care Provider Active Dr. Brittney JAQUEZ MD Attending Provider, Referring Provider Active Team Status: Inactive Member Role Status Dates Dr. Billy Madera MD Primary Care Provider Active Dr. Brittney JAQUEZ MD Attending Provider Active Team Status: Active Member Role Status Dates Dr. Billy Madera MD Primary Care Provider Active Dr. Ranjeet New MD Attending Provider, Refe rring Provider Active Team Status: Inactive Member Role Status Dates Dr. Billy Madera MD Primary Care Provider Active Dr. Ranjeet New MD Attending Provider, Refe rring Provider Active Team Status: Active Member Role Status Dates Dr. Mike Richard MD Family Provider Active Dr. Brittney Gonzalez MD Primary Care Provider Active Team Status: Active Member Role Status Dates Dr. Billy Madera MD Primary Care Provider Active Dr. Brittney JAQUEZ MD Attending Provider, Referring Provider Active Team Status: Inactive Member Role Status Dates Serg Barnes MD Emergency Provider Active Dr. 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 Billy Madera MD Primary Care Provider Active Team Status: Inactive Member Role Status Dates Dr. Billy Madera MD Primary Care Provider Active Start: July 03, 2024 End: July 03, 2024 Dr. Billy Madera MD Referring Provider Active Start: July 03, 2024 End: July 03, 2024 Dr. Raz Yañez MD Attending Provider Active Start: July 03, 2024 End: July 03, 2024 Team Status: Inactive Member Role Status Dates Dr. Billy Madera MD Primary Care Provider Active Start: July 04, 2024 End: July 04, 2024 Dr. Pasha Thornton MD Attending Provider Active Sta rt: July 04, 2024 End: July 04, 2024 Dr. Pasha Thornton MD Emergency Provider Active Sta rt: July 04, 2024 End: July 04, 2024 Team Status: Inactive Member Role Status Dates Dr. Billy Madera MD Primary Care Provider Active Start: July 13, 2024 End: July 13, 2024 Billy JAQUEZ MD Attending Provider Active Start: July 13, 2024 End: July 13, 2024 Team Status: Inactive Member Role Status Dates Dr. Billy Madera MD Primary Care Provider Active Start: August 02, 2024 End: August 03, 2024 Dr. Jacky Holland MD Attending Provider Active S tart: August 02, 2024 End: August 03, 2024 Dr. Jacky Holland MD Emergency Provider Active S tart: August 02, 2024 End: August 03, 2024 Team Status: Inactive Member Role Status Dates Dr. Billy Madera MD Primary Care Provider Active Start: August 14, 2024 End: August 14, 2024 Dr. Billy Madera MD Attending Provider Active Start: August 14, 2024 End: August 14, 2024 Dr. Billy Madera MD Referring Provider Active Start: August 14, 2024 End: August 14, 2024 Team Status: Inactive Member Role Status Dates Dr. Billy Madera MD Primary Care Provider Active Start: August 24, 2024 End: August 24, 2024 Dr. Billy Madera MD Referring Provider Active Start: August 24, 2024 End: August 24, 2024 Michelle Givens NP, AIR CREW SUPERVISOR-C Attending Provider Active Start: August 24, 2024 End: August 24, 2024 Team Status: Inactive Member Role Status Dates Dr. Billy Madera MD Primary Care Provider Active Start: September 01, 2024 End: September 01, 2024 Dr. Billy Madera MD Attending Provider Active Start: September 01, 2024 End: September 01, 2024 Dr. Billy Madera MD Referring Provider Active Start: September 01, 2024 End: September 01, 2024 Team Status: Inactive Member Role Status Dates Dr. Billy Madera MD Primary Care Provider Active Start: September 14, 2024 End: September 14, 2024 Michelle Givens AIR CREW SUPERVISOR, AIR CREW SUPERVISOR-C Attending Provider Active Start: September 14, 2024 End: September 14, 2024 Michelle Givens AIR CREW SUPERVISOR, AIR CREW SUPERVISOR-C Referring Provider Active Start: September 14, 2024 End: September 14, 2024 Team Status: Active Member Role Status Dates Dr. Billy Madera MD Primary Care Provider Active Start: September 18, 2024 Michelle Givens AIR CREW SUPERVISOR, AIR CREW SUPERVISOR-C Referring Provider Active Start: September 18, 2024 Michelle Givens AIR CREW SUPERVISOR, AIR CREW SUPERVISOR-C Other Provider Active Start: September 18, 2024 Dr. Korey Fraser DO Attending Provider Active S tart: September 18, 2024 Team Status: Active Member Role Status Dates Dr. Billy Madera MD Primary Care Provider Active Start: October 12, 2024 Billy JAQUEZ MD Attending Provider Active Start: October 12, 2024 Billy JAQUEZ MD Referring Provider Active Start: October 12, 2024 Team Status: Inactive Member Role Status Dates Dr. Billy Madera MD Primary Care Provider Active Start: October 19, 2024 End: October 19, 2024 Dr. Billy Madera MD Referring Provider Active Start: October 19, 2024 End: October 19, 2024 LOUISE Plascencia Attending Provider Active St art: October 19, 2024 End: October 19, 2024 Team Status: Inactive Member Role Status Dates Dr. Billy Madera MD Primary Care Provider Active Start: October 19, 2024 End: October 19, 2024 LOUISE Plascencia Attending Provider Active St art: October 19, 2024 End: October 19, 2024 LOUISE Plascencia Referring Provider Active St art: October 19, 2024 End: October 19, 2024 Team Status: Inactive Member Role Status Dates Dr. Billy Madera MD Primary Care Provider Active Start: October 12, 2024 End: October 12, 2024 Billy JAQUEZ MD Attending Provider Active Start: October 12, 2024 End: October 12, 2024 Billy JAQUEZ MD Referring Provider Active Start: October 12, 2024 End: October 12, 2024 Team Status: Inactive Member Role Status Dates Dr. Billy Madera MD Primary Care Provider Active Start: December 04, 2024 End: December 04, 2024 Dr. Billy Madera MD Attending Provider Active Start: December 04, 2024 End: December 04, 2024 Dr. Billy Madera MD Referring Provider Active Start: December 04, 2024 End: December 04, 2024 Team Status: Inactive Member Role Status Dates Dr. Billy Madera MD Primary Care Provider Active Start: December 23, 2024 End: December 24, 2024 Dr. Deon Rodriguez MD Emergency Provider Active Start: December 23, 2024 End: December 24, 2024 Team Status: Inactive Member Role Status Dates Dr. Billy Madera MD Primary Care Provider Active Start: December 23, 2024 End: December 24, 2024 Dr. Deon Rodriguez MD Attending Provider Active Start: December 23, 2024 End: December 24, 2024 Dr. Deon Rodriguez MD Emergency Provider Active Start: December 23, 2024 End: December 24, 2024 Team Status: Inactive Member Role Status Dates Dr. Billy Madera MD Primary Care Provider Active Start: January 05, 2025 End: January 05, 2025 Dr. Billy Madera MD Referring Provider Active Start: January 05, 2025 End: January 05, 2025 Grover GIL PA Attending Provider Active St art: January 05, 2025 End: January 05, 2025 Team Status: Active Member Role Status Dates Dr. Billy Madera MD Primary Care Provider Active Start: January 05, 2025 Grover GIL PA Attending Provider Active St art: January 05, 2025 Grover Mayer PA, [place] Referring Provider Active St art: January 05, 2025 Team Status: Inactive Member Role Status Dates Dr. Billy Madera MD Primary Care Provider Active Start: January 05, 2025 End: January 05, 2025 Grover GIL PA Attending Provider Active St art: January 05, 2025 End: January 05, 2025 [place] GIL, [place] Referring Provider Active St art: January 05, 2025 End: January 05, 2025 Team Status: Active Member Role Status Dates Dr. Billy Madera MD Primary Care Provider Active Start: January 11, 2025 Billy JAQUEZ MD Attending Provider Active Start: January 11, 2025 Team Status: Inactive Member Role Status Dates Dr. Billy Madera MD Primary Care Provider Active Start: January 22, 2025 End: January 22, 2025 Michelle Givens AIR CREW SUPERVISOR, AIR CREW SUPERVISOR-C Attending Provider Active Start: January 22, 2025 End: January 22, 2025 Michelle Givens AIR CREW SUPERVISOR AIR CREW SUPERVISOR-C Referring Provider Active Start: January 22, 2025 End: January 22, 2025 Team Status: Active Member Role/Relationship Status Dates Dr. Billy Madera MD Primary Care Provider Active Team Status: Inactive Member Role/Relationship Status Dates Dr. Billy Madera MD Primary Care Provider Active Start: October 12, 2024 End: October 12, 2024 Billy JAQUEZ MD Attending Provider Active Start: October 12, 2024 End: October 12, 2024 Billy JAQUEZ MD Referring Provider Active Start: October 12, 2024 End: October 12, 2024 Team Status: Inactive Member Role/Relationship Status Dates Dr. Billy Madera MD Primary Care Provider Active Start: October 19, 2024 End: October 19, 2024 Dr. Billy Madera MD Referring Provider Active Start: October 19, 2024 End: October 19, 2024 LOUISE Plascencia Attending Provider Active St art: October 19, 2024 End: October 19, 2024 Team Status: Inactive Member Role/Relationship Status Dates Dr. Billy Madera MD Primary Care Provider Active Start: October 19, 2024 End: October 19, 2024 LOUISE Plascencia Attending Provider Active St art: October 19, 2024 End: October 19, 2024 LOUISE Plascencia Referring Provider Active St art: October 19, 2024 End: October 19, 2024 Team Status: Inactive Member Role/Relationship Status Dates Dr. Billy Madera MD Primary Care Provider Active Start: December 04, 2024 End: December 04, 2024 Dr. Billy Madera MD Attending Provider Active Start: December 04, 2024 End: December 04, 2024 Dr. Billy Madera MD Referring Provider Active Start: December 04, 2024 End: December 04, 2024 Team Status: Inactive Member Role/Relationship Status Dates Dr. Billy Madera MD Primary Care Provider Active Start: December 23, 2024 End: December 24, 2024 Dr. Deon Rodriguez MD Attending Provider Active Start: December 23, 2024 End: December 24, 2024 Dr. Deon Rodriguez MD Emergency Provider Active Start: December 23, 2024 End: December 24, 2024 Team Status: Inactive Member Role/Relationship Status Dates Dr. Billy Madera MD Primary Care Provider Active Start: January 05, 2025 End: January 05, 2025 Dr. Billy Madera MD Referring Provider Active Start: January 05, 2025 End: January 05, 2025 Grover GIL PA Attending Provider Active St art: January 05, 2025 End: January 05, 2025 Team Status: Inactive Member Role/Relationship Status Dates Dr. Billy Madera MD Primary Care Provider Active Start: January 05, 2025 End: January 05, 2025 Grover GIL PA Attending Provider Active St art: January 05, 2025 End: January 05, 2025 Grover GIL PA Referring Provider Active St art: January 05, 2025 End: January 05, 2025 Team Status: Active Member Role/Relationship Status Dates Dr. Billy Madera MD Primary Care Provider Active Start: January 11, 2025 Billy JAQUEZ MD Attending Provider Active Start: January 11, 2025 Team Status: Inactive Member Role/Relationship Status Dates Dr. Billy Madera MD Primary Care Provider Active Start: January 22, 2025 End: January 22, 2025 Michelle Givens AIR CREW SUPERVISOR, AIR CREW SUPERVISOR-C Attending Provider Active Start: January 22, 2025 End: January 22, 2025 Michelle Givens AIR CREW SUPERVISOR, AIR CREW SUPERVISOR-C Referring Provider Active Start: January 22, 2025 End: January 22, 2025 Team Status: Inactive Member Role/Relationship Status Dates Dr. Billy Madera MD Primary Care Provider Active Start: February 08, 2025 End: February 08, 2025 Dr. Billy Madera MD Referring Provider Active Start: February 08, 2025 End: February 08, 2025 Michelle Givens AIR CREW SUPERVISOR, AIR CREW SUPERVISOR-C Attending Provider Active Start: February 08, 2025 End: February 08, 2025 Team Status: Inactive Member Role/Relationship Status Dates Dr. Billy Madera MD Primary Care Provider Active Start: October 19, 2024 End: October 19, 2024 Dr. Billy Madera MD Referring Provider Active Start: October 19, 2024 End: October 19, 2024 LOUISE Plascencia Attending Provider Active St art: October 19, 2024 End: October 19, 2024 Team Status: Inactive Member Role/Relationship Status Dates Dr. Billy Madera MD Primary Care Provider Active Start: October 19, 2024 End: October 19, 2024 LOUISE Plascencia Attending Provider Active St art: October 19, 2024 End: October 19, 2024 LOUISE Plascencia Referring Provider Active St art: October 19, 2024 End: October 19, 2024 Team Status: Inactive Member Role/Relationship Status Dates Dr. Billy Madera MD Primary Care Provider Active Start: December 04, 2024 End: December 04, 2024 Dr. Billy Madera MD Attending Provider Active Start: December 04, 2024 End: December 04, 2024 Dr. Billy Madera MD Referring Provider Active Start: December 04, 2024 End: December 04, 2024 Team Status: Inactive Member Role/Relationship Status Dates Dr. Billy Madera MD Primary Care Provider Active Start: December 23, 2024 End: December 24, 2024 Dr. Deon Rodriguez MD Attending Provider Active Start: December 23, 2024 End: December 24, 2024 Dr. Deon Rodriguez MD Emergency Provider Active Start: December 23, 2024 End: December 24, 2024 Team Status: Inactive Member Role/Relationship Status Dates Dr. Billy Madera MD Primary Care Provider Active Start: January 05, 2025 End: January 05, 2025 Dr. Billy Madera MD Referring Provider Active Start: January 05, 2025 End: January 05, 2025 LOUISE Plascencai Attending Provider Active St art: January 05, 2025 End: January 05, 2025 Team Status: Inactive Member Role/Relationship Status Dates Dr. Billy Madera MD Primary Care Provider Active Start: January 05, 2025 End: January 05, 2025 LOUISE Plascencia Attending Provider Active St art: January 05, 2025 End: January 05, 2025 LOUISE Plascencia Referring Provider Active St art: January 05, 2025 End: January 05, 2025 Team Status: Active Member Role/Relationship Status Dates Dr. Billy Madera MD Primary Care Provider Active Start: January 11, 2025 Billy JAQUEZ MD Attending Provider Active Start: January 11, 2025 Team Status: Inactive Member Role/Relationship Status Dates Dr. Billy Madera MD Primary Care Provider Active Start: January 22, 2025 End: January 22, 2025 Michelle Givens AIR CREW SUPERVISOR, AIR CREW SUPERVISOR-C Attending Provider Active Start: January 22, 2025 End: January 22, 2025 Michelle Givens AIR CREW SUPERVISOR, AIR CREW SUPERVISOR-C Referring Provider Active Start: January 22, 2025 End: January 22, 2025 Team Status: Inactive Member Role/Relationship Status Dates Dr. Billy Madera MD Primary Care Provider Active Start: February 08, 2025 End: February 08, 2025 Dr. Billy Madera MD Referring Provider Active Start: February 08, 2025 End: February 08, 2025 Michelle Givens AIR CREW SUPERVISOR, AIR CREW SUPERVISOR-C Attending Provider Active Start: February 08, 2025 End: February 08, 2025 Team Status: Inactive Member Role/Relationship Status Dates Dr. Billy Madera MD Primary Care Provider Active Start: February 12, 2025 End: February 12, 2025 Dr. Billy Madera MD Referring Provider Active Start: February 12, 2025 End: February 12, 2025 July Freitas AIR CREW SUPERVISOR-C Attending Provider Active Start: February 12, 2025 End: February 12, 2025 Team Status: Active Member Role/Relationship Status Dates Dr. Billy Madera MD Primary Care Provider Active Start: February 12, 2025 July Ungerer , AIR CREW SUPERVISOR-C Attending Provider Active Start: February 12, 2025 July Ungerer , AIR CREW SUPERVISOR-C Referring Provider Active Start: February 12, 2025 Team Status: Inactive Member Role/Relationship Status Dates Dr. Billy Madera MD Primary Care Provider Active Start: February 12, 2025 End: February 12, 2025 July Ungerer , AIR CREW SUPERVISOR-C Attending Provider Active Start: February 12, 2025 End: February 12, 2025 July Ungerer , AIR CREW SUPERVISOR-C Referring Provider Active Start: February 12, 2025 End: February 12, 2025 Team Status: Active Member Role/Relationship Status Dates Dr. Billy Madera MD Primary Care Provider Active Start: February 15, 2025 LOUISE Plascencia Attending Provider Active St art: February 15, 2025 LOUISE Plascencia Referring Provider Active St art: February 15, 2025 Team Status: Inactive Member Role/Relationship Status Dates Dr. Billy Madera MD Primary Care Provider Active Start: December 04, 2024 End: December 04, 2024 Dr. Billy Madera MD Attending Provider Active Start: December 04, 2024 End: December 04, 2024 Dr. Billy Madera MD Referring Provider Active Start: December 04, 2024 End: December 04, 2024 Team Status: Inactive Member Role/Relationship Status Dates Dr. Billy Madera MD Primary Care Provider Active Start: December 23, 2024 End: December 24, 2024 Dr. Deon Rodriguez MD Attending Provider Active Start: December 23, 2024 End: December 24, 2024 Dr. Deon Rodriguez MD Emergency Provider Active Start: December 23, 2024 End: December 24, 2024 Team Status: Inactive Member Role/Relationship Status Dates Dr. Billy Madera MD Primary Care Provider Active Start: January 05, 2025 End: January 05, 2025 Dr. Billy Madera MD Referring Provider Active Start: January 05, 2025 End: January 05, 2025 LOUISE Plascencia Attending Provider Active St art: January 05, 2025 End: January 05, 2025 Team Status: Inactive Member Role/Relationship Status Dates Dr. Billy Madera MD Primary Care Provider Active Start: January 05, 2025 End: January 05, 2025 LOUISE Plascencia Attending Provider Active St art: January 05, 2025 End: January 05, 2025 LOUISE Plascencia Referring Provider Active St art: January 05, 2025 End: January 05, 2025 Team Status: Active Member Role/Relationship Status Dates Dr. Billy Madera MD Primary Care Provider Active Start: January 11, 2025 iBlly JAQUEZ MD Attending Provider Active Start: January 11, 2025 Team Status: Inactive Member Role/Relationship Status Dates Dr. Billy Madera MD Primary Care Provider Active Start: January 22, 2025 End: January 22, 2025 Michelle Givens AIR CREW SUPERVISOR, AIR CREW SUPERVISOR-C Attending Provider Active Start: January 22, 2025 End: January 22, 2025 Michelle Givens AIR CREW SUPERVISOR, AIR CREW SUPERVISOR-C Referring Provider Active Start: January 22, 2025 End: January 22, 2025 Team Status: Inactive Member Role/Relationship Status Dates Dr. Billy Madera MD Primary Care Provider Active Start: February 08, 2025 End: February 08, 2025 Dr. Billy Madera MD Referring Provider Active Start: February 08, 2025 End: February 08, 2025 Michelle Givens NP, AIR CREW SUPERVISOR-C Attending Provider Active Start: February 08, 2025 End: February 08, 2025 Team Status: Inactive Member Role/Relationship Status Dates Dr. Billy Madera MD Primary Care Provider Active Start: February 12, 2025 End: February 12, 2025 Dr. Billy Madera MD Referring Provider Active Start: February 12, 2025 End: February 12, 2025 July Freitas AIR CREW SUPERVISOR-C Attending Provider Active Start: February 12, 2025 End: February 12, 2025 Team Status: Inactive Member Role/Relationship Status Dates Dr. Billy Madera MD Primary Care Provider Active Start: February 12, 2025 End: February 12, 2025 July Freitas AIR CREW SUPERVISOR-C Attending Provider Active Start: February 12, 2025 End: February 12, 2025 JulyHELEN BenavidesC Referring Provider Active Start: February 12, 2025 End: February 12, 2025 Team Status: Inactive Member Role/Relationship Status Dates Dr. Billy Madera MD Primary Care Provider Active Start: February 15, 2025 End: February 15, 2025 Grover Mayer PA, PA Attending Provider Active St art: February 15, 2025 End: February 15, 2025 Grover Mayer PA, PA Referring Provider Active St art: February 15, 2025 End: February 15, 2025 Team Status: Active Member Role/Relationship Status Dates Dr. Billy Madera MD Primary Care Provider Active Start: February 19, 2025 Grover Mayer PA, PA Attending Provider Active St art: February 19, 2025 Grover Mayer PA, PA Referring Provider Active St art: February 19, 2025 Team Status: Inactive Member Role/Relationship Status Dates Dr. Billy Madera MD Primary Care Provider Active Start: February 19, 2025 End: February 19, 2025 Grover Mayer PA, PA Attending Provider Active St art: February 19, 2025 End: February 19, 2025 Grover Mayer PA, PA Referring Provider Active St art: February 19, 2025 End: February 19, 2025 Team Status: Inactive Member Role/Relationship Status Dates Dr. Billy Madera MD Primary Care Provider Active Start: March 08, 2025 End: March 08, 2025 Dr. Billy Madera MD Attending Provider Active Start: March 08, 2025 End: March 08, 2025 Dr. Billy Madera MD Referring Provider Active Start: March 08, 2025 End: March 08, 2025 Team Status: Inactive Member Role/Relationship Status Dates Dr. Billy Madera MD Primary Care Provider Active Start: March 27, 2025 End: March 27, 2025 Dr. Billy Madera MD Referring Provider Active Start: March 27, 2025 End: March 27, 2025 SYMONE Morales Attending Provider Active Start: March 27, 2025 End: March 27, 2025 Team Status: Inactive Member Role/Relationship Status Dates Dr. Billy Madera MD Primary Care Provider Active Start: March 30, 2025 End: March 30, 2025 Dr. Billy Madera MD Referring Provider Active Start: March 30, 2025 End: March 30, 2025 Dr. Candy Sagastume MD Attending Provider Active Start: March 30, 2025 End: March 30, 2025 Team Status: Inactive Member Role/Relationship Status Dates Dr. Billy Madera MD Primary Care Provider Active Start: December 23, 2024 End: December 24, 2024 Dr. Deon Rodriguez MD Attending Provider Active Start: December 23, 2024 End: December 24, 2024 Dr. Deon Rodriguez MD Emergency Provider Active Start: December 23, 2024 End: December 24, 2024 Team Status: Inactive Member Role/Relationship Status Dates Dr. Billy Madera MD Primary Care Provider Active Start: January 05, 2025 End: January 05, 2025 Dr. Billy Madera MD Referring Provider Active Start: January 05, 2025 End: January 05, 2025 LOUISE Placsencia Attending Provider Active St art: January 05, 2025 End: January 05, 2025 Team Status: Inactive Member Role/Relationship Status Dates Dr. Billy Madera MD Primary Care Provider Active Start: January 05, 2025 End: January 05, 2025 LOUISE Plascencia Attending Provider Active St art: January 05, 2025 End: January 05, 2025 LOUISE Plascencia Referring Provider Active St art: January 05, 2025 End: January 05, 2025 Team Status: Active Member Role/Relationship Status Dates Dr. Billy Madera MD Primary Care Provider Active Start: January 11, 2025 Billy JAQUEZ MD Attending Provider Active Start: January 11, 2025 Team Status: Inactive Member Role/Relationship Status Dates Dr. Billy Madera MD Primary Care Provider Active Start: January 22, 2025 End: January 22, 2025 Michelle Givens AIR CREW SUPERVISOR, AIR CREW SUPERVISOR-C Attending Provider Active Start: January 22, 2025 End: January 22, 2025 Michelle Givens AIR CREW SUPERVISOR, AIR CREW SUPERVISOR-C Referring Provider Active Start: January 22, 2025 End: January 22, 2025 Team Status: Inactive Member Role/Relationship Status Dates Dr. Billy Madera MD Primary Care Provider Active Start: February 08, 2025 End: February 08, 2025 Dr. Billy Madera MD Referring Provider Active Start: February 08, 2025 End: February 08, 2025 Michelle Givens NP, AIR CREW SUPERVISOR-C Attending Provider Active Start: February 08, 2025 End: February 08, 2025 Team Status: Inactive Member Role/Relationship Status Dates Dr. Billy Madera MD Primary Care Provider Active Start: February 12, 2025 End: February 12, 2025 Dr. Billy Madera MD Referring Provider Active Start: February 12, 2025 End: February 12, 2025 July Freitas AIR CREW SUPERVISOR-C Attending Provider Active Start: February 12, 2025 End: February 12, 2025 Team Status: Inactive Member Role/Relationship Status Dates Dr. Billy Madera MD Primary Care Provider Active Start: February 12, 2025 End: February 12, 2025 July Freitas AIR CREW SUPERVISOR-C Attending Provider Active Start: February 12, 2025 End: February 12, 2025 July Freitas AIR CREW SUPERVISOR-C Referring Provider Active Start: February 12, 2025 End: February 12, 2025 Team Status: Inactive Member Role/Relationship Status Dates Dr. Billy Madera MD Primary Care Provider Active Start: February 15, 2025 End: February 15, 2025 Grover GIL PA Attending Provider Active St art: February 15, 2025 End: February 15, 2025 Grover GIL PA Referring Provider Active St art: February 15, 2025 End: February 15, 2025 Team Status: Inactive Member Role/Relationship Status Dates Dr. Billy Madera MD Primary Care Provider Active Start: February 19, 2025 End: February 19, 2025 Grover GIL PA Attending Provider Active St art: February 19, 2025 End: February 19, 2025 Grover GIL PA Referring Provider Active St art: February 19, 2025 End: February 19, 2025 Team Status: Inactive Member Role/Relationship Status Dates Dr. Billy Madera MD Primary Care Provider Active Start: March 08, 2025 End: March 08, 2025 Dr. Billy Madera MD Attending Provider Active Start: March 08, 2025 End: March 08, 2025 Dr. Billy Madera MD Referring Provider Active Start: March 08, 2025 End: March 08, 2025 Team Status: Inactive Member Role/Relationship Status Dates Dr. Billy Madera MD Primary Care Provider Active Start: March 27, 2025 End: March 27, 2025 Dr. Billy Madera MD Referring Provider Active Start: March 27, 2025 End: March 27, 2025 SYMONE Morales Attending Provider Active Start: March 27, 2025 End: March 27, 2025 Team Status: Inactive Member Role/Relationship Status Dates Dr. Billy Madera MD Primary Care Provider Active Start: March 30, 2025 End: March 30, 2025 Dr. Billy Madera MD Referring Provider Active Start: March 30, 2025 End: March 30, 2025 Dr. Candy Sagastume MD Attending Provider Active Start: March 30, 2025 End: March 30, 2025 Team Status: Inactive Member Role/Relationship Status Dates Dr. Billy Madera MD Primary Care Provider Active Start: March 30, 2025 End: March 30, 2025 Dr. Candy Sagastume MD Attending Provider Active Start: March 30, 2025 End: March 30, 2025 Dr. Candy Sagastume MD Referring Provider Active Start: March 30, 2025 End: March 30, 2025 Team Status: Active Member Role/Relationship Status Dates Dr. Billy Madera MD Primary Care Provider Active Start: April 12, 2025 Billy JAQUEZ MD Attending Provider Active Start: April 12, 2025 Team Status: Inactive Member Role/Relationship Status Dates Dr. Billy Madera MD Primary Care Provider Active Start: April 12, 2025 End: April 12, 2025 Dr. Billy Madera MD Referring Provider Active Start: April 12, 2025 End: April 12, 2025 Shonda Barkman , AIR CREW SUPERVISOR-C Attending Provider Active Start: April 12, 2025 End: April 12, 2025 Team Status: Active Member Role/Relationship Status Dates Dr. Billy Madera MD Primary care physician Activ e Team Status: Active Member Role/Relationship Status Dates Dr. Billy Madera MD Primary care physician Activ e Start: January 11, 2025 Billy JAQUEZ MD Attending physician Active Start: January 11, 2025 Team Status: Inactive Member Role/Relationship Status Dates Dr. Billy Madera MD Primary care physician Activ e Start: January 22, 2025 End: January 22, 2025 Michelle Givens AIR CREW SUPERVISOR, AIR CREW SUPERVISOR-C Attending physician Active Start: January 22, 2025 End: January 22, 2025 Michelle Givens AIR CREW SUPERVISOR, AIR CREW SUPERVISOR-C Referring Provider Active Start: January 22, 2025 End: January 22, 2025 Team Status: Inactive Member Role/Relationship Status Dates Dr. Billy Madera MD Primary care physician Activ e Start: February 08, 2025 End: February 08, 2025 Dr. Billy Madera MD Referring Provider Active Start: February 08, 2025 End: February 08, 2025 Michelle Givens AIR CREW SUPERVISOR, AIR CREW SUPERVISOR-C Attending physician Active Start: February 08, 2025 End: February 08, 2025 Team Status: Inactive Member Role/Relationship Status Dates Dr. Billy Madera MD Primary care physician Activ e Start: February 12, 2025 End: February 12, 2025 Dr. Billy Madera MD Referring Provider Active Start: February 12, 2025 End: February 12, 2025 July Freitas AIR CREW SUPERVISOR-C Attending physician Active Start: February 12, 2025 End: February 12, 2025 Team Status: Inactive Member Role/Relationship Status Dates Dr. Billy Madera MD Primary care physician Activ e Start: February 12, 2025 End: February 12, 2025 July Freitas AIR CREW SUPERVISOR-C Attending physician Active Start: February 12, 2025 End: February 12, 2025 July Freitas , AIR CREW SUPERVISOR-C Referring Provider Active Start: February 12, 2025 End: February 12, 2025 Team Status: Inactive Member Role/Relationship Status Dates Dr. Billy Madera MD Primary care physician Activ e Start: February 15, 2025 End: February 15, 2025 Grover GIL PA Attending physician Active S tart: February 15, 2025 End: February 15, 2025 Grover Mayer PA PA Referring Provider Active St art: February 15, 2025 End: February 15, 2025 Team Status: Inactive Member Role/Relationship Status Dates Dr. Billy Madera MD Primary care physician Activ e Start: February 19, 2025 End: February 19, 2025 Grover GIL PA Attending physician Active S tart: February 19, 2025 End: February 19, 2025 Grover GIL PA Referring Provider Active St art: February 19, 2025 End: February 19, 2025 Team Status: Inactive Member Role/Relationship Status Dates Dr. Billy Madera MD Primary care physician Activ e Start: March 08, 2025 End: March 08, 2025 Dr. Billy Madera MD Attending physician Active Start: March 08, 2025 End: March 08, 2025 Dr. Billy Madera MD Referring Provider Active Start: March 08, 2025 End: March 08, 2025 Team Status: Inactive Member Role/Relationship Status Dates Dr. Billy Madera MD Primary care physician Activ e Start: March 27, 2025 End: March 27, 2025 Dr. Billy Madera MD Referring Provider Active Start: March 27, 2025 End: March 27, 2025 SYMONE Morales Attending physician Active Start: March 27, 2025 End: March 27, 2025 Team Status: Inactive Member Role/Relationship Status Dates Dr. Billy Madera MD Primary care physician Activ e Start: March 30, 2025 End: March 30, 2025 Dr. Billy Madera MD Referring Provider Active Start: March 30, 2025 End: March 30, 2025 Dr. Candy Sagastume MD Attending physician Active Start: March 30, 2025 End: March 30, 2025 Team Status: Inactive Member Role/Relationship Status Dates Dr. Billy Madera MD Primary care physician Activ e Start: March 30, 2025 End: March 30, 2025 Dr. Candy Sagastume MD Attending physician Active Start: March 30, 2025 End: March 30, 2025 Dr. Candy Sagastume MD Referring Provider Active Start: March 30, 2025 End: March 30, 2025 Team Status: Active Member Role/Relationship Status Dates Dr. Billy Madera MD Primary care physician Activ e Start: April 12, 2025 Billy JAQUEZ MD Attending physician Active Start: April 12, 2025 Team Status: Inactive Member Role/Relationship Status Dates Dr. Billy Madera MD Primary care physician Activ e Start: April 12, 2025 End: April 12, 2025 Dr. Billy Madera MD Referring Provider Active Start: April 12, 2025 End: April 12, 2025 HELEN GarciaC Attending physician Active Start: April 12, 2025 End: April 12, 2025 Team Status: Inactive Member Role/Relationship Status Dates Dr. Billy Madera MD Primary care physician Activ e Start: April 12, 2025 End: April 12, 2025 HELEN GarciaC Attending physician Active Start: April 12, 2025 End: April 12, 2025 SYMONE Garcia Referring Provider Active Start: April 12, 2025 End: April 12, 2025 Team Status: Inactive Member Role/Relationship Status Dates Dr. Billy Madera MD Primary care physician Activ e Start: April 27, 2025 End: April 27, 2025 Dr. Billy Madera MD Referring Provider Active Start: April 27, 2025 End: April 27, 2025 Michelle Givens NP, AIR CREW SUPERVISOR-C Attending physician Active Start: April 27, 2025 End: April 27, 2025 Team Status: Inactive Member Role/Relationship Status Dates Dr. Billy Madera MD Primary care physician Activ e Start: April 27, 2025 End: April 27, 2025 Michelle Givens NP, AIR CREW SUPERVISOR-C Attending physician Active Start: April 27, 2025 End: April 27, 2025 Michelle Givens AIR CREW SUPERVISOR, AIR CREW SUPERVISOR-C Referring Provider Active Start: April 27, 2025 End: April 27, 2025 Team Status: Inactive Member Role/Relationship Status Dates Dr. Billy Madera MD Primary care physician Activ e Start: February 08, 2025 End: February 08, 2025 Dr. Billy Madera MD Referring Provider Active Start: February 08, 2025 End: February 08, 2025 Michelle Givens NP AIR CREW SUPERVISOR-C Attending physician Active Start: February 08, 2025 End: February 08, 2025 Team Status: Inactive Member Role/Relationship Status Dates Dr. Billy Madera MD Primary care physician Activ e Start: February 12, 2025 End: February 12, 2025 Dr. Billy Madera MD Referring Provider Active Start: February 12, 2025 End: February 12, 2025 July Freitas NP-C Attending physician Active Start: February 12, 2025 End: February 12, 2025 Team Status: Inactive Member Role/Relationship Status Dates Dr. Billy Madera MD Primary care physician Activ e Start: February 12, 2025 End: February 12, 2025 July Freitas AIR CREW SUPERVISOR-C Attending physician Active Start: February 12, 2025 End: February 12, 2025 July Freitas AIR CREW SUPERVISOR-C Referring Provider Active Start: February 12, 2025 End: February 12, 2025 Team Status: Inactive Member Role/Relationship Status Dates Dr. Billy Madera MD Primary care physician Activ e Start: February 15, 2025 End: February 15, 2025 LOUISE Plascencia Attending physician Active S tart: February 15, 2025 End: February 15, 2025 Grover GIL PA Referring Provider Active St art: February 15, 2025 End: February 15, 2025 Team Status: Inactive Member Role/Relationship Status Dates Dr. Billy Madera MD Primary care physician Activ e Start: February 19, 2025 End: February 19, 2025 Grover GIL PA Attending physician Active S tart: February 19, 2025 End: February 19, 2025 Grover GIL PA Referring Provider Active St art: February 19, 2025 End: February 19, 2025 Team Status: Inactive Member Role/Relationship Status Dates Dr. Billy Madera MD Primary care physician Activ e Start: March 08, 2025 End: March 08, 2025 Dr. Billy Madera MD Attending physician Active Start: March 08, 2025 End: March 08, 2025 Dr. Billy Madera MD Referring Provider Active Start: March 08, 2025 End: March 08, 2025 Team Status: Inactive Member Role/Relationship Status Dates Dr. Billy Madera MD Primary care physician Activ e Start: March 27, 2025 End: March 27, 2025 Dr. Billy Madera MD Referring Provider Active Start: March 27, 2025 End: March 27, 2025 HELEN MoralesC Attending physician Active Start: March 27, 2025 End: March 27, 2025 Team Status: Inactive Member Role/Relationship Status Dates Dr. Billy Madera MD Primary care physician Activ e Start: March 30, 2025 End: March 30, 2025 Dr. Billy Madera MD Referring Provider Active Start: March 30, 2025 End: March 30, 2025 Dr. Candy Sagastume MD Attending physician Active Start: March 30, 2025 End: March 30, 2025 Team Status: Inactive Member Role/Relationship Status Dates Dr. Billy Madera MD Primary care physician Activ e Start: March 30, 2025 End: March 30, 2025 Dr. Candy Sagastume MD Attending physician Active Start: March 30, 2025 End: March 30, 2025 Dr. Candy Sagastume MD Referring Provider Active Start: March 30, 2025 End: March 30, 2025 Team Status: Active Member Role/Relationship Status Dates Dr. Billy Madera MD Primary care physician Activ e Start: April 12, 2025 Billy JAQUEZ MD Attending physician Active Start: April 12, 2025 Team Status: Inactive Member Role/Relationship Status Dates Dr. Billy Madera MD Primary care physician Activ e Start: April 12, 2025 End: April 12, 2025 Dr. Billy Madera MD Referring Provider Active Start: April 12, 2025 End: April 12, 2025 SYMONE Garcia Attending physician Active Start: April 12, 2025 End: April 12, 2025 Team Status: Inactive Member Role/Relationship Status Dates Dr. Billy Madera MD Primary care physician Activ e Start: April 12, 2025 End: April 12, 2025 SYMONE Garcia Attending physician Active Start: April 12, 2025 End: April 12, 2025 SYMONE Garcia Referring Provider Active Start: April 12, 2025 End: April 12, 2025 Team Status: Inactive Member Role/Relationship Status Dates Dr. Billy Madera MD Primary care physician Activ e Start: April 27, 2025 End: April 27, 2025 Dr. Billy Madera MD Referring Provider Active Start: April 27, 2025 End: April 27, 2025 HELEN Smith NPC Attending physician Active Start: April 27, 2025 End: April 27, 2025 Team Status: Inactive Member Role/Relationship Status Dates Dr. Billy Madera MD Primary care physician Activ e Start: April 27, 2025 End: April 27, 2025 HELEN Smith NPC Attending physician Active Start: April 27, 2025 End: April 27, 2025 HELEN Smith NPC Referring Provider Active Start: April 27, 2025 End: April 27, 2025 Team Status: Inactive Member Role/Relationship Status Dates Dr. Billy Madera MD Primary care physician Activ e Start: May 23, 2025 End: May 23, 2025 Dr. Billy Madera MD Referring Provider Active Start: May 23, 2025 End: May 23, 2025 SYMONE Garcia Attending physician Active Start: May 23, 2025 End: May 23, 2025 Team Status: Inactive Member Role/Relationship Status Dates Dr. Billy Madera MD Primary care physician Activ e Start: May 23, 2025 End: May 23, 2025 SYMONE Garcia Attending physician Active Start: May 23, 2025 End: May 23, 2025 Reason for Visit (unrecogniz ed section and content) Reason Comments Thyroid Nodule FOR RECORDS PERTAINING TO PATIENTS WHO ARE [...] BE BASED ON THE PRIMARY CLINICAL RECORDS. [email or web address]. provides no warranty or guarantee of the accuracy or completeness of information in this document.
[2025-07-12 08:20] LABS: Hematocrit 34.1 % (37-47); Hemoglobin 10.5 g/dL (12.0-15.0); Mean Corp Hgb Conc 30.8 g/dL (32-36); Mean Corpuscular Volume 90.7 fL (81-99); Mean Platelet Vol. 10.9 fl (6.2-12.0); Platelet Count 314 K/mm3 (150-450); RBC Distribution Width CV 12.6 % (11.6-14.6); RBC Distribution Width SD 41.2 fl (35.1-43.9); Red Blood Count 3.76 M/mm3 (4.2-5.4); White Blood Count 9.9 K/mm3 (4.4-11.0)
[2025-07-12 08:40] LABS: AST(SGOT) 16 U/L (<=31); Alanine Aminotransfer ALT/SGPT 13 U/L (<=34); Albumin, Serum 3.9 g/dL (3.4-4.8); Alkaline Phosphatase 171 U/L (35-104); Anion Gap 11 (5-15); BUN 12 mg/dL (4-19); BUN/Creat Ratio 14.4 RATIO (10-20); Calcium,Total 9.8 mg/dL (7.6-11.0); Carbon Dioxide 30.0 mmol/L (21.0-32.0); Chloride 100 mmol/L (98-108); Globulin 2.5 g/dL (2.2-4.2); Glucose 138 mg/dL (70-99); Potassium 4.8 mmol/L (3.3-5.1)
== END ==
LOC: OLS.SWAL 05:00
PROVIDERS: PCP Internal Medicine; Visit Provider Internal Medicine
DX: D64.9 Anemia, unspecified (principal); J44.1 Chronic obstructive pulmonary disease with (acute) exacerbation; E11.69 Type 2 diabetes mellitus with other specified complication; E78.5 Hyperlipidemia, unspecified
CPT/HCPCS: 36415; 80053; 83036; 85027